=== PATIENT | female | born 1945 | race Caucasian/White ===

== ENCOUNTER 2018-08-23 06:30 | Day surgery (SDC) | payer OTHER ==
[2018-08-23] MEDS ORDERED: NA CHLORIDE 0.9% 1,000 ML ONE (06:55)
[2018-08-23 07:25] VITALS: TEMP 98.1
[2018-08-23] MEDS ORDERED: PROPOFOL 200 MG/20 ML VIAL IV ONE (07:34)
[2018-08-23] MEDS ORDERED: LIDOCAINE 1% MPF 2 ML AMPULE ONE (07:34)
[2018-08-23 08:42] VITALS: BP 118/58; O2SAT 95
== END 2018-08-23 08:47 | disposition home or self-care (01) ==
LOC: OR 06:30
PROVIDERS: ATTEND Internal Medicine Gastroenterology
PROC: 0DBN8ZX Excision of Sigmoid Colon, Via Natural or Artificial Opening Endoscopic, Diagnostic (ICD-10-PCS; 2018-08-23)
PROC: 0DBP8ZX Excision of Rectum, Via Natural or Artificial Opening Endoscopic, Diagnostic (ICD-10-PCS; 2018-08-23)
PROC: 0DBB8ZX Excision of Ileum, Via Natural or Artificial Opening Endoscopic, Diagnostic (ICD-10-PCS; 2018-08-23)
PROC: 0DB68ZX Excision of Stomach, Via Natural or Artificial Opening Endoscopic, Diagnostic (ICD-10-PCS; 2018-08-23)
PROC: 0DB88ZX Excision of Small Intestine, Via Natural or Artificial Opening Endoscopic, Diagnostic (ICD-10-PCS; 2018-08-23)
PROC: 0DB78ZX Excision of Stomach, Pylorus, Via Natural or Artificial Opening Endoscopic, Diagnostic (ICD-10-PCS; 2018-08-23)
PROC: 0DBM8ZX Excision of Descending Colon, Via Natural or Artificial Opening Endoscopic, Diagnostic (ICD-10-PCS; principal; 2018-08-23 07:30)
PROC: 0DBL8ZX Excision of Transverse Colon, Via Natural or Artificial Opening Endoscopic, Diagnostic (ICD-10-PCS; 2018-08-23 07:30)
DX: K52.9 Noninfective gastroenteritis and colitis, unspecified (principal); K57.30 Diverticulosis of large intestine without perforation or abscess without bleeding; K64.8 Other hemorrhoids; K62.89 Other specified diseases of anus and rectum; K29.80 Duodenitis without bleeding; K29.50 Unspecified chronic gastritis without bleeding; K20.9 Esophagitis, unspecified; Z80.0 Family history of malignant neoplasm of digestive organs; Z98.0 Intestinal bypass and anastomosis status; E11.9 Type 2 diabetes mellitus without complications; I48.91 Unspecified atrial fibrillation; I11.0 Hypertensive heart disease with heart failure; I50.9 Heart failure, unspecified; G47.30 Sleep apnea, unspecified; Z79.4 Long term (current) use of insulin; Z79.01 Long term (current) use of anticoagulants; Z79.899 Other long term (current) drug therapy; Z95.0 Presence of cardiac pacemaker
CPT/HCPCS: 45380; 43239; 88312; 82962; 88305; J2704; J2001; J7030

== ENCOUNTER 2020-12-11 07:04 | Day surgery (SDC) | payer OTHER ==
[2020-12-11] MEDS ORDERED: NA CHLORIDE 0.9% 1,000 ML ONE (07:34)
[2020-12-11] MEDS ORDERED: LIDOCAINE 1% MPF 5 ML VIAL ONE (08:59)
[2020-12-11] MEDS ORDERED: propofoL 200 MG/20 ML VIAL IV ONE (08:59)
[2020-12-11] MEDS ORDERED: Phenylephrine HCl 10 MG/ML 1 ML VIAL ONE (09:10)
[2020-12-11] MEDS ORDERED: NS 0.9% VIAL 0 ML ONE (09:10)
[2020-12-11 10:03] VITALS: O2SAT 96
[2020-12-11 10:07] VITALS: BP 122/41
[2020-12-11 10:39] VITALS: TEMP 97.3
== END 2020-12-11 10:35 | disposition home or self-care (01) ==
LOC: OR 07:04
PROVIDERS: ATTEND Internal Medicine Gastroenterology
PROC: 0DBB8ZX Excision of Ileum, Via Natural or Artificial Opening Endoscopic, Diagnostic (ICD-10-PCS; 2020-12-11)
PROC: 0DBE8ZX Excision of Large Intestine, Via Natural or Artificial Opening Endoscopic, Diagnostic (ICD-10-PCS; 2020-12-11)
PROC: 0DBP8ZX Excision of Rectum, Via Natural or Artificial Opening Endoscopic, Diagnostic (ICD-10-PCS; 2020-12-11)
PROC: 0DBN8ZX Excision of Sigmoid Colon, Via Natural or Artificial Opening Endoscopic, Diagnostic (ICD-10-PCS; principal; 2020-12-11 08:00)
DX: K57.30 Diverticulosis of large intestine without perforation or abscess without bleeding (principal); K50.90 Crohn's disease, unspecified, without complications; K92.1 Melena; K64.8 Other hemorrhoids; K64.4 Residual hemorrhoidal skin tags; K63.5 Polyp of colon; Z20.822 Contact with and (suspected) exposure to COVID-19; Z86.010 Personal history of colon polyps
CPT/HCPCS: 82947; 88305; 45385; 45380; U0003; J2704; J7030; J2370

== ENCOUNTER 2021-11-05 18:19 | Inpatient (IN) | payer OTHER ==
--- OUTSIDE RECORDS SUMMARY | 2021-11-05 18:22 | XMS REPORT | Continuity of Care Document ---
:1945 Author Organization [facility] Address [address] [place] [address] Dr. Vazquez [address] [place] [id number] Care Team Providers Name Role Phone Abdiaziz Fuchs Attending Clinician Unavailable Problems This patient has no known problems. Allergies, Adverse Reactions, Alerts This patient has no known allergies or adverse reactions. Medications This patient has no known medications. Procedures This patient has no known procedures. Encounters Start End Encounter Admission Attending Care Care Encounter Source Date/Time Date/Time Type Type Clinicians Facility Department ID 2021-09-04 Outpatient Fuchs [facility] [id number] Common 14:26:02 Abdiaziz [facility] 2021-06-25 Outpatient [facility] [id number] Common 10:03:03 [facility] 2021-06-18 Outpatient [facility] [id number] Common 08:37:02 [facility] 2021-06-13 [facility] [id number] Common 10:29:05 [facility] Results This patient has no known results.
[2021-11-05 20:27] LABS: Absolute Lymphocytes (CBC) 0.4 K/uL (0.7-4.9); Hematocrit 33.1 % (36.0-45.0); Lymphocytes % 7.9 % (15.3-44.8); MCV 107.9 fL (80-100); MPV 8.9 fL (7.6-11.3); RBC Red Blood Cell Count 3.07 M/uL (3.86-4.86)
[2021-11-05 20:28] LABS: Blood Morphology Comment NOTED (NOT SEEN); Macrocytosis 1+; Platelet Estimate DECR; White Blood Cell Scan OK (OK)
[2021-11-05 20:30] LABS: Protime INR 1.42
[2021-11-05] MEDS ORDERED: NA CHLORIDE 0.9% 1,000 ML ONE (20:32)
--- NOTE | 2021-11-05 20:43 | RAD REPORT ---
EXAM DESCRIPTION: RAD - Chest Single View - 11/05/2021 8:34 pm CLINICAL HISTORY: DYSPNEA COMPARISON: No comparisonsChest Pa And Lat (2 Views) dated 04/22/2018; Abdomen 1 View (KUB) dated 08/25; CHEST PA AND LAT 2 VIEW dated 01/06/2013; CHEST SINGLE VIEW dated 05/15/2012 FINDINGS: Lines: Pacemaker. Lungs: Diffuse prominence of the pulmonary interstitium. Pleural: No significant pleural effusions or pneumothorax. Cardiac: Cardiomegaly. Bones: No acute fractures. Other: IMPRESSION: Interstitial edema.
[2021-11-05 20:48] LABS: Albumin 3.7 g/dL (3.4-5.0); Bilirubin Direct 0.2 mg/dL (0-0.2); Bilirubin Total 0.5 mg/dL (0.2-1.0); Magnesium 1.6 mg/dL (1.8-2.4); Potassium 3.3 mmol/L (3.5-5.1); Protein, Total 8.1 g/dL (6.4-8.2)
[2021-11-05 20:59] LABS: Urine Blood Trace-intact (Negative); Urine Glucose Negative (Negative); Urine Protein Negative (Negative); Urine Specific Gravity 1.015 (1.005-1.030); Urine pH 5.5 (5.0-7.0)
--- NOTE | 2021-11-05 21:49 | ER ---
Nurse's Notes [facility] Name: Kiah Taylor Age: 76 yrs Sex: Female : 1945 Arrival Date: 11/05/2021 Time: 18:20 Bed 15 Private MD: Azul Fuchs C Diagnosis: Systolic (congestive) heart failure;Dyspnea;Obesity, unspecified;Chronic atrial fibrillation;Hypomagnesemia;Hypokalemia;UTI/ Urinary tract infection, site not specified;Anemia, unspecified Presentation: 11/05 18:53 Chief complaint: Patient states: she has been having shortness of breath and a cough ap3 for a couple of weeks now. when she called her PCP, she was told to come to the ED for further evaluation. Coronavirus screen: At this time, the client does not indicate any symptoms associated with coronavirus-19. Ebola Screen: No symptoms or risks identified at this time. Initial Sepsis Screen: Does the patient meet any 2 criteria? No. Patient's initial sepsis screen is negative. Does the patient have a suspected source of infection? No. Patient's initial sepsis screen is negative. Risk Assessment: Do you want to hurt yourself or someone else? Patient reports no desire to harm self or others. Onset of symptoms was October 08, 2021. 18:53 Method Of Arrival: Wheelchair ap3 18:53 Acuity: ANNIE 3 ap3 Triage Assessment: 18:56 General: Appears uncomfortable, Behavior is calm. Pain: Denies pain. Neuro: Level of ap3 Consciousness is awake, alert, obeys commands, Oriented to person, place, time. Cardiovascular: Patient's skin is warm and dry. Respiratory: Reports shortness of breath at rest on exertion cough that is dry, Airway is patent Respiratory effort is even, unlabored, Respiratory pattern is regular, symmetrical, Onset: The symptoms/episode began/occurred over the last few weeks, the patient has mild shortness of breath. Historical: - Allergies: 18:54 Morphine; ap3 18:54 Ciprofloxacin; ap3 - PMHx: 18:54 Diabetes mellitus; Hypertensive disorder; Crohn's disease; AFIB; ap3 - PSHx: 18:54 pacemaker; ap3 - Immunization history:: Client reports receiving the 2nd dose of the Covid vaccine. - Social history:: Smoking status: Patient denies any tobacco usage or history of. - Family history:: not pertinent. Screenin:57 Abuse screen: Denies threats or abuse. Nutritional screening: No deficits noted. ap3 Tuberculosis screening: No symptoms or risk factors identified. 19:46 Fall Risk Fall in past 12 months (25 points). aa9 Assessment: 19:43 General: Appears distressed, Behavior is cooperative. Pain: Denies pain. aa9 Cardiovascular: Rhythm is atrial pacer. Respiratory: Airway is patent Respiratory effort is labored, Respiratory pattern is regular, Breath sounds are diminished bilaterally. 23:36 Reassessment: Patient and family member notified of room change. Verbalize aa9 understanding. Transferred via hospital bed. Patient stable, breathing regular and unlabored. Vital Signs: 18:53 BP 146 / 51; Pulse 70; Resp 17; Temp 97.8; Pulse Ox 92% ; Weight 117.93 kg; Height 5 ap3 ft. 4 in. (162.56 cm); 19:45 BP 156 / 69; Pulse 76; Resp 17 S; Temp 98(O); Pulse Ox 92% on R/A; Weight 117.93 kg aa9 (R); Height 5 ft. 4 in. (162.56 cm) (R); Pain 0/10; 20:59 Pulse 71; Resp 13; Pulse Ox 95% on R/A; kd3 22:59 Pulse 72; Resp 16; Pulse Ox 94% on R/A; aa9 19:45 Body Mass Index 44.63 (117.93 kg, 162.56 cm) aa9 ED Course: 18:20 Patient arrived in ED. am2 18:21 Azul Fuchs MD is Private Physician. am2 18:54 Triage completed. ap3 18:57 Arm band placed on left wrist. ap3 19:45 Placed in gown. Bed in low position. Call light in reach. Side rails up X2. Adult w/ aa9 patient. 19:49 Jelani Mckenna MD is Attending Physician. chato 20:25 Bonnie Casey, LAURA is Primary Nurse. kd3 20:36 XRAY Chest (1 view) In Process Unspecified. EDMS 20:58 SARS-COV-2 RT PCR (Document "Date of Onset" if Symptomatic) Sent. kd3 21:47 Azul Fuchs MD is Hospitalizing Provider. chato 22:16 Urine Culture Sent. aa9 23:13 No provider procedures requiring assistance completed. Patient admitted, IV remains in aa9 place. Administered Medications: 20:58 Drug: NS 0.9% 1000 ml Route: IV; Rate: 125 ml/hr; Site: left forearm; kd3 23:04 Follow up: IV Status: Infusion continued kd3 22:39 Drug: Lasix (furosemide) 40 mg Route: IVP; Site: left antecubital; aa9 22:39 Follow up: Response: No adverse reaction aa9 22:39 Drug: Rocephin (cefTRIAXone) 1 grams Route: IV; Rate: per protocol; Site: left aa9 antecubital; 22:39 Follow up: IV Status: Completed infusion; IV Intake: 10ml aa9 22:58 Drug: Magnesium Sulfate 1 grams Route: IVPB; Infused Over: 1 hrs; Site: left forearm; aa9 23:03 Follow up: IV Status: Infusion continued kd3 Medication: 23:14 VIS not applicable for this client. aa9 Intake: 22:39 IV: 10ml; Total: 10ml. aa9 Outcome: 21:49 Decision to Hospitalize by Provider. [facility] 23:13 Admitted to Med/surg accompanied by tech, via stretcher, with chart, Report called to aa9 receiving nurse 23:13 Condition: stable 23:13 Discharge instructions given to patient, family, Instructed on follow up and referral plans. the need for admit, Demonstrated understanding of instructions, follow-up care. 23:38 Patient left the ED. aa9 Signatures: Dispatcher [employer] EDNJ Jelani Mckenna MD MD cha Moreno, Amanda am2 Joselin Luis RN RN ap3 Bonnie Casey RN RN kd3 Allyn Lincoln, LAURA RN aa9 Corrections: (The following items were deleted from the chart) 18:56 18:54 Allergies: No Known Allergies; ap3 ap3
--- NOTE | 2021-11-05 21:50 | EDPHYS ---
Physician Documentation [facility] Name: Kiah Taylor Age: 76 yrs Sex: Female : 1945 Arrival Date: 11/05/2021 Time: 18:20 Bed 15 Private MD: Azul Fuchs C ED Physician Jelani Mckenna HPI: 11/05 21:44 This 76 yrs old Female presents to ER via Wheelchair with complaints of chato Shortness Of Breath, Cough, General Weakness. 21:44 The patient has shortness of breath at rest, with light activity. Onset: The chato symptoms/episode began/occurred 3 day(s) ago. Duration: The symptoms are continuous, and are steadily getting worse. The patient's shortness of breath is aggravated by exertion, light activity, supine position. Associated signs and symptoms: Pertinent positives: non-productive cough. Severity of symptoms: At their worst the symptoms were mild moderate in the emergency department the symptoms are unchanged. The patient has experienced similar episodes in the past, multiple times. Historical: - Allergies: 18:54 Morphine; ap3 18:54 Ciprofloxacin; ap3 - PMHx: 18:54 Diabetes mellitus; Hypertensive disorder; Crohn's disease; AFIB; ap3 - PSHx: 18:54 pacemaker; ap3 - Immunization history:: Client reports receiving the 2nd dose of the Covid vaccine. - Social history:: Smoking status: Patient denies any tobacco usage or history of. - Family history:: not pertinent. ROS: 21:44 Constitutional: Negative for fever, chills, and weight loss, Eyes: Negative for injury, chato pain, redness, and discharge, ENT: Negative for injury, pain, and discharge, Neck: Negative for injury, pain, and swelling, Cardiovascular: Negative for chest pain, palpitations, and edema, Abdomen/GI: Negative for abdominal pain, nausea, vomiting, diarrhea, and constipation, Back: Negative for injury and pain, : Negative for injury, bleeding, discharge, and swelling, Skin: Negative for injury, rash, and discoloration, Neuro: Negative for headache, weakness, numbness, tingling, and seizure, Psych: Negative for depression, anxiety, suicide ideation, homicidal ideation, and hallucinations, Allergy/Immunology: Negative for hives, rash, and allergies, Endocrine: Negative for neck swelling, polydipsia, polyuria, polyphagia, and marked weight changes, Hematologic/Lymphatic: Negative for swollen nodes, abnormal bleeding, and unusual bruising. 21:44 Respiratory: Positive for cough, shortness of breath, on exertion. 21:44 MS/extremity: Positive for pain, swelling, tenderness, of the right leg and left leg. Exam: 21:44 Constitutional: This is a well developed, well nourished patient who is awake, alert, chato and in no acute distress. Head/Face: Normocephalic, atraumatic. Eyes: Pupils equal round and reactive to light, extra-ocular motions intact. Lids and lashes normal. Conjunctiva and sclera are non-icteric and not injected. Cornea within normal limits. Periorbital areas with no swelling, redness, or edema. ENT: Nares patent. No nasal discharge, no septal abnormalities noted. Tympanic membranes are normal and external auditory canals are clear. Oropharynx with no redness, swelling, or masses, exudates, or evidence of obstruction, uvula midline. Mucous membranes moist. Neck: Trachea midline, no thyromegaly or masses palpated, and no cervical lymphadenopathy. Supple, full range of motion without nuchal rigidity, or vertebral point tenderness. No Meningismus. Chest/axilla: Normal chest wall appearance and motion. Nontender with no deformity. No lesions are appreciated. Cardiovascular: Regular rate and rhythm with a normal S1 and S2. No gallops, murmurs, or rubs. Normal PMI, no JVD. No pulse deficits. Abdomen/GI: Soft, non-tender, with normal bowel sounds. No distension or tympany. No guarding or rebound. No evidence of tenderness throughout. Back: No spinal tenderness. No costovertebral tenderness. Full range of motion. Female : Normal external genitalia. Skin: Warm, dry with normal turgor. Normal color with no rashes, no lesions, and no evidence of cellulitis. Neuro: Awake and alert, GCS 15, oriented to person, place, time, and situation. Cranial nerves II-XII grossly intact. Motor strength 5/5 in all extremities. Sensory grossly intact. Cerebellar exam normal. Normal gait. Psych: Awake, alert, with orientation to person, place and time. Behavior, mood, and affect are within normal limits. 21:44 Respiratory: the patient does not display signs of respiratory distress, Respirations: no acute changes, Breath sounds: rales, that are mild, are located in both bases, decreased breath sounds, rhonchi, that are mild, stridor, is not appreciated, + upper airway congestion. 22:02 ECG was reviewed by the Attending Physician. [facility] Vital Signs: 18:53 BP 146 / 51; Pulse 70; Resp 17; Temp 97.8; Pulse Ox 92% ; Weight 117.93 kg; Height 5 ap3 ft. 4 in. (162.56 cm); 19:45 BP 156 / 69; Pulse 76; Resp 17 S; Temp 98(O); Pulse Ox 92% on R/A; Weight 117.93 kg aa9 (R); Height 5 ft. 4 in. (162.56 cm) (R); Pain 0/10; 20:59 Pulse 71; Resp 13; Pulse Ox 95% on R/A; kd3 22:59 Pulse 72; Resp 16; Pulse Ox 94% on R/A; aa9 19:45 Body Mass Index 44.63 (117.93 kg, 162.56 cm) aa9 MDM: 19:[address] [facility] 21:50 Differential diagnosis: Bronchitis CHF exacerbation, pneumonia, pulmonary edema, chato reactive airway disease. Antibiotic administration: ROCEPHIN. The patient's Wells Deep Vein Thrombosis Score was calculated as follows: Total Score: 0-2 Pts- Low Risk. The patient's pulmonary embolism risk score was calculated as follows: Total Score: 0-2 points. This patient was found to be at low risk for a pulmonary embolism by using the Well's assessment criteria. Immunization status: Pneumococcal vaccine: Influenza vaccine: Data reviewed: vital signs, nurses notes, lab test result(s), EKG, radiologic studies, plain films. Data interpreted: athletic monitor: rate is 71 beats/min, rhythm is regular, Pulse oximetry: on room air is 95 %. Test interpretation: by ED physician or midlevel provider: ECG, plain radiologic studies. Counseling: I had a detailed discussion with the patient and/or guardian regarding: the historical points, exam findings, and any diagnostic results supporting the discharge/admit diagnosis, lab results, radiology results, the need for further work-up and treatment in the hospital. 11/05 19:51 Order name: Basic Metabolic Panel; Complete Time: 21:36 [facility] 11/05 19:51 Order name: CBC with Diff; Complete Time: 21:36 [facility] 11/05 19:51 Order name: LFT's; Complete Time: 21:36 [facility] 11/05 19:51 Order name: Magnesium; Complete Time: 21:36 [facility] 11/05 19:51 Order name: NT PRO-BNP; Complete Time: 21:36 [facility] 11/05 19:51 Order name: PT-INR; Complete Time: 21:36 [facility] 11/05 19:51 Order name: Troponin HS; Complete Time: 21:36 [facility] 11/05 19:51 Order name: XRAY Chest (1 view); Complete Time: 21:36 [facility] 11/05 19:51 Order name: Blood Culture Adult (2) [facility] 11/05 19:51 Order name: Lactate; Complete Time: 21:36 [facility] 11/05 19:51 Order name: SARS-COV-2 RT PCR (Document "Date of Onset" if Symptomatic) [facility] 11/05 20:29 Order name: CBC Smear Scan; Complete Time: 21:36 [facility] 11/05 20:59 Order name: Urine Dipstick-Ancillary; Complete Time: 21:36 [facility] 11/05 21:50 Order name: Urine Culture [facility] 11/05 19:51 Order name: EKG; Complete Time: 19:52 [facility] 11/05 19:51 Order name: Cardiac monitoring; Complete Time: 20:58 [facility] 11/05 19:51 Order name: EKG - Nurse/Tech; Complete Time: 22:59 [facility] 11/05 19:51 Order name: IV Saline Lock; Complete Time: 20:59 [facility] 11/05 19:51 Order name: Labs collected and sent; Complete Time: 20:59 [facility] 11/05 19:51 Order name: O2 Per Protocol; Complete Time: 20:59 [facility] 11/05 19:51 Order name: O2 Sat Monitoring; Complete Time: 20:59 [facility] 11/05 19:51 Order name: Urine Dipstick-Ancillary (obtain specimen); Complete Time: 20:58 [facility] 11/05 21:58 Order name: CONS Physician Consult EDMS EC:02 Rate is 76 beats/min. Rhythm is regular. QRS [place] is Normal. [place] interval is normal. QRS chato interval is prolonged at 148 msec. No Q waves. T waves are Normal. No ST changes noted. Clinical impression: Abnormal EKG without significant change. Administered Medications: 20:58 Drug: NS 0.9% 1000 ml Route: IV; Rate: 125 ml/hr; Site: left forearm; kd3 23:04 Follow up: IV Status: Infusion continued kd3 22:39 Drug: Lasix (furosemide) 40 mg Route: IVP; Site: left antecubital; aa9 22:39 Follow up: Response: No adverse reaction aa9 22:39 Drug: Rocephin (cefTRIAXone) 1 grams Route: IV; Rate: per protocol; Site: left aa9 antecubital; 22:39 Follow up: IV Status: Completed infusion; IV Intake: 10ml aa9 22:58 Drug: Magnesium Sulfate 1 grams Route: IVPB; Infused Over: 1 hrs; Site: left forearm; aa9 23:03 Follow up: IV Status: Infusion continued kd3 Disposition Summary: 11/05/21 21:49 Hospitalization Ordered Hospitalization Status: Inpatient Admission chato Provider: Azul Fuchs cha Location: Telemetry/MedSurg (Inpatient) chato Condition: Fair chato Problem: new chato Symptoms: have improved chato Bed/Room Type: Standard chato Room Assignment: 402(11/05/21 22:49) eb1 Diagnosis - Systolic (congestive) heart failure chato - Dyspnea chato - Obesity, unspecified chato - Chronic atrial fibrillation chato - Hypomagnesemia chato - Hypokalemia chato - UTI/ Urinary tract infection, site not specified chato - Anemia, unspecified chato Forms: - Medication Reconciliation Form chato - SBAR form chato Signatures: Dispatcher [employer] EDJelani Hoffman MD MD cha Prokisch, Amanda, RN RN ap3 Elizabeth Martins RN RN eb1 Bonnie Casey RN RN kd3 Allyn Lincoln RN RN aa9 Corrections: (The following items were deleted from the chart) 18:56 18:54 Allergies: No Known Allergies; ap3 ap3 22:49 21:49 chato eb1
[2021-11-05] MEDS ORDERED: MAGNESIUM SULFATE 1 gm IVPB 1 GM/100 ML BAG IV ONE (22:28)
[2021-11-05] MEDS ORDERED: CEFTRIAXONE 1000 MG/VIAL ONE (22:28)
[2021-11-05] MEDS ORDERED: FUROSEMIDE 40 MG/4 ML VIAL ONE (22:28)
[2021-11-05] MEDS ORDERED: ONDANSETRON 4 MG/2 ML VIAL IV PRN (23:14)
[2021-11-05] MEDS ORDERED: IPRATROPIUM BROM 0.5MG/2.5ML NEB PRN (23:14)
[2021-11-05] MEDS ORDERED: ACETAMINOPHEN 325 MG TABLET PO PRN (23:14)
[2021-11-05] MEDS ORDERED: ALBUTEROL 2.5 MG/3 ML NEB SOL NEB PRN (23:14)
[2021-11-06 06:25] LABS: Potassium 3.3 mmol/L (3.5-5.1)
[2021-11-06 06:29] LABS: Absolute Lymphocytes (CBC) 0.3 K/uL (0.7-4.9); Hematocrit 32.5 % (36.0-45.0); MCV 105.3 fL (80-100); MPV 9.5 fL (7.6-11.3); RBC Red Blood Cell Count 3.08 M/uL (3.86-4.86)
[2021-11-06] MEDS ORDERED: D50W 25 GM/50 ML SYRINGE IV PRN (07:45)
[2021-11-06] MEDS ORDERED: GLUCAGON 1 MG/VIAL IM PRN (07:45)
[2021-11-06] MEDS ORDERED: DEXTROSE 10%-WATER 125 ML IV PRN (07:55)
[2021-11-06] MEDS: INSULIN -REGULAR HUMAN 50 UNIT/0.5 ML ML SQ SCH ×4 (08:00→21:00)
[2021-11-06] MEDS ORDERED: HOME MED 1 EA UNK (Olmesartan Medoxomil [Benicar] 40 MG Tablet) PO SCH (09:00)
[2021-11-06] MEDS ORDERED: FUROSEMIDE 20 MG/ 2ML VIAL IV SCH (09:00)
[2021-11-06] MEDS ORDERED: HOME MED 1 EA UNK (Potassium Chloride [Potassium Chloride] 10 MEQ Tab.Er.Prt) PO SCH (09:00)
[2021-11-06] MEDS ORDERED: HOME MED 1 EA UNK (Omeprazole [Prilosec] 40 MG Capsule.Dr) PO SCH (09:00)
[2021-11-06] MEDS ORDERED: HOME MED 1 EA UNK (Insulin Detemir [Levemir] 100 UNIT/1 ML Ml) SQ SCH (09:00)
[2021-11-06] MEDS ORDERED: METFORMIN HCL 1000 MG PO SCH (09:00)
[2021-11-06] MEDS ORDERED: FAMOTIDINE 20 MG/2 ML VIAL IV SCH (09:00)
[2021-11-06] MEDS: HOME MED 1 EA UNK (Liraglutide [Victoza 2-Pak] 0.6 MG/0.1 ML Pen.Injctr) SQ SCH (09:00)
[2021-11-06] MEDS ORDERED: POTASSIUM 25 MEQ EFFERV TAB PO ONE (09:00)
[2021-11-06] MEDS: AZATHIOPRINE 50 MG TABLET PO SCH (09:30)
[2021-11-06] MEDS: METFORMIN HCL 500 MG TAB PO SCH ×2 (09:31→16:50)
[2021-11-06] MEDS: CLONIDINE HCL 0.3 MG TAB PO SCH ×2 (09:31→22:27)
[2021-11-06] MEDS: lisinopriL 20 MG TAB PO SCH (09:32)
[2021-11-06] MEDS: GLIMEPIRIDE 2 MG TABLET PO SCH ×2 (09:32→16:50)
[2021-11-06] MEDS: allopurinoL 300 MG TAB PO SCH (09:33)
[2021-11-06] MEDS: DOXAZOSIN 4 MG TAB PO SCH ×3 (09:33→22:29)
[2021-11-06] MEDS: VALSARTAN 160 MG TAB PO SCH (09:34)
[2021-11-06] MEDS: RIVAROXABAN 20 MG TABLET PO SCH (09:34)
[2021-11-06] MEDS: PANTOPRAZOLE 40MG TABLET PO SCH (09:34)
[2021-11-06] MEDS: AMLODIPINE 5 MG TAB PO SCH ×2 (09:35→22:29)
[2021-11-06] MEDS: MAGNESIUM OXIDE 400 MG TAB PO SCH ×2 (09:35→22:31)
[2021-11-06] MEDS: FUROSEMIDE 40 MG/4 ML VIAL IV SCH ×2 (09:35→16:50)
[2021-11-06] MEDS: POTASSIUM 25 MEQ EFFERV TAB PO SCH ×2 (09:36→22:27)
[2021-11-06] MEDS: INSULIN GLARGINE 100 UNIT/ML SQ SCH ×2 (09:36→22:30)
[2021-11-06] MEDS: CEFTRIAXONE 1,000 MG in NA CHLORIDE 0.9% 50 ML IVPB SCH (09:37)
[2021-11-06] MEDS: GUAIFENESIN/CODEINE 5ML UCUP PO PRN ×2 (09:41→22:27)
--- NOTE | 2021-11-06 11:26 | CON ---
Date of Consultation: 11/06/2021 Reason For Consultation: Dyspnea on exertion, weakness, cough, and congestive heart failure. History Of Present Illness: Ms. Taylor is 76. Has a history of diabetes, Crohn disease, a pacemaker placement, hypertension, comes in with dyspnea on exertion and cough. Chest x-ray shows CHF. BNP wa s 556, hemoglobin 10.1, potassium 3.3, paced rhythm. She has already improved on her present regimen . She also has a history of paroxysmal atrial fibrillation. Allergies: SHE IS ALLERGIC TO CIPRO AND MORPHINE. Review of Systems: Negative. Social History: Negative. Family History: Negative. Medications: At home include clonidine, Pravachol, Benicar, insulin, lisinopril, metformin, Imuran, occasional Zaroxolyn, Lasix, Norvasc, and inhalers as well as Xarelto. Impression And Plan: 1.Congestive heart failure, probably acute on chronic diastolic. Echocardiogram is pending. Contin ue present regimen. 2.Hypokalemia, needs to be corrected. 3.Pacemaker rhythm, recent check in the office is okay. 4.Diabetes, well controlled. 5.Crohn disease, on Imuran. 6.Hypertension, well controlled. 7.Dyslipidemia. I think Ms. Taylor can go home whenever it is okay with Dr. Fuchs, but I will probabl y be given at least 1 more day and gentle diuresis. We will see her in the office soon. I think a [facility]an as an outpatient may be jennifer sonable. SOCORRO/ONI Voice ID: [id number] Report ID: [id number]
--- NOTE | 2021-11-06 15:10 | EKG ---
Test Date: 2021-11-05 Test Time: 21:24:18 Director Distribution: AUGIE MEASUREMENT RESULTS: Intervals: Rate: 76 WV: QRSD: 148 QT: 454 QTc: 510 [place]: P: W[place]: QRS: 244 T: 26 INTERPRETIVE STATEMENTS: V paced rhythm Abnormal ECG Electronically Signed On 11-06-21 15:10:18 CDT by Colt Vail
[2021-11-06] MEDS ORDERED: ALBUTEROL 2.5 MG/3 ML NEB SOL NEB PRN (17:00)
[2021-11-06] MEDS ORDERED: IPRATROPIUM BROM 0.5MG/2.5ML NEB PRN (17:00)
[2021-11-06] MEDS ORDERED: POTASSIUM CL SA 10 MEQ TAB PO ONE (18:00)
[2021-11-06] MEDS ORDERED: HOME MED 1 EA UNK (Pravastatin [Pravachol*] 40 MG/TAB Tab) PO SCH (21:00)
[2021-11-06] MEDS: ATORVASTATIN 10 MG TAB PO SCH (22:29)
[2021-11-07] MEDS: INSULIN -REGULAR HUMAN 50 UNIT/0.5 ML ML SQ SCH ×4 (07:30→21:00)
[2021-11-07] MEDS: RIVAROXABAN 20 MG TABLET PO SCH (08:25)
[2021-11-07] MEDS: allopurinoL 300 MG TAB PO SCH (08:25)
[2021-11-07] MEDS: AZATHIOPRINE 50 MG TABLET PO SCH (08:25)
[2021-11-07] MEDS: lisinopriL 20 MG TAB PO SCH (08:26)
[2021-11-07] MEDS: GLIMEPIRIDE 2 MG TABLET PO SCH ×2 (08:26→16:26)
[2021-11-07] MEDS: AMLODIPINE 5 MG TAB PO SCH ×2 (08:26→22:24)
[2021-11-07] MEDS: METFORMIN HCL 500 MG TAB PO SCH ×2 (08:27→16:26)
[2021-11-07] MEDS: CLONIDINE HCL 0.3 MG TAB PO SCH ×2 (08:27→22:23)
[2021-11-07] MEDS: MAGNESIUM OXIDE 400 MG TAB PO SCH ×2 (08:28→22:23)
[2021-11-07] MEDS: VALSARTAN 160 MG TAB PO SCH (08:28)
[2021-11-07] MEDS: POTASSIUM 25 MEQ EFFERV TAB PO SCH ×2 (08:29→22:22)
[2021-11-07] MEDS: HOME MED 1 EA UNK (Liraglutide [Victoza 2-Pak] 0.6 MG/0.1 ML Pen.Injctr) SQ SCH (08:29)
[2021-11-07] MEDS: PANTOPRAZOLE 40MG TABLET PO SCH (08:30)
[2021-11-07] MEDS: FUROSEMIDE 40 MG/4 ML VIAL IV SCH ×2 (08:30→16:25)
[2021-11-07] MEDS: INSULIN GLARGINE 100 UNIT/ML SQ SCH ×2 (08:30→22:24)
[2021-11-07] MEDS: CEFTRIAXONE 1,000 MG in NA CHLORIDE 0.9% 50 ML IVPB SCH (08:30)
[2021-11-07] MEDS: GUAIFENESIN/CODEINE 5ML UCUP PO PRN ×2 (08:41→22:22)
--- NOTE | 2021-11-07 10:39 | ECHO ---
HEIGHT: 5 ft 4 in WEIGHT: 260 lb 0 oz DATE OF STUDY: 11/06/[address]: Abdizaiz Fuchs MD 2-DIMENSIONAL: YES M.MODE: YES DOPPLER: YES COLOR FLOW: YES TDS: NO PORTABLE: YES DEFINITY: NO BUBBLE STUDY: NO DIAGNOSIS: CONGESTIVE HEART FAILURE CARDIAC HISTORY: CATHERIZATION: NO SURGERY: NO PROSTHETIC VALVE: NO PACEMAKER: YES MEASUREMENTS (cm) DIASTOLIC (NORMALS) SYSTOLIC (NORMALS) IVSd 1.3 (0.6-1.2) LA Diam 3.4 (1.9-4.0) LVEF 71% LVIDd 4.7 (3.5-5.7) LVIDs 2.8 (2.0-3.5) %FS 41% LVPWd 1.3 (0.6-1.2) Ao Diam 2.8 (2.0-3.7) 2 DIMENSIONAL ASSESSMENT: RIGHT ATRIUM: NORMAL LEFT ATRIUM: NORMAL RIGHT VENTRICLE: NORMAL LEFT VENTRICLE: NORMAL TRICUSPID VALVE: MITRAL VALVE: PULMONIC VALVE: AORTIC VALVE: PERICARDIAL EFFUSION: NONE AORTIC ROOT: NORMAL LEFT VENTRICULAR WALL MOTION: BOUNCY SEPTAL MOTION. DOPPLER/COLOR FLOW: SEE BELOW. COMMENTS: NORMAL LEFT VENTRICULAR EJECTION FRACTION >60% WITH NORMAL WALL MOTION. BOUNCY SEPTAL MOVEMENT THAT CAN REPRESENT CONSTRICTIVE PERICARDITIS. NORMAL DIASTOLIC FUNCTION. SEVERE PULMONARY HYPERTENSION WITH RIGHT VENTRICULAR SYSTOLIC PRESSURE >60 mmHg. MILD AORTIC, MITRAL, TRICUSPID AND PULMONARY REGURGITATION. TECHNOLOGIST: Maximiliano CHANEY
[2021-11-07 11:16] LABS: Magnesium 1.9 mg/dL (1.8-2.4); Potassium 3.9 mmol/L (3.5-5.1)
--- NOTE | 2021-11-07 12:28 | PN ---
Date of Progress Note: 11/07/2021 Subjective: The patient was seen this morning for followup. She was lying in bed, not in distress. Slept little better last night. Cough is better. She remains on oxygen 2 L/minute nasal cannula. Oxygen saturation is around 93%. Objective: Vital Signs: Reviewed. HEENT: Examination unremarkable. Lungs: Clear to auscultation except diminished air entry in the lung bases overall. This is better today than yesterday. No rhonchi. No rales. Heart: Sounds normal. Abdomen: Soft. Bowel sounds normal. No guarding, rigidity, tenderness, or distention. Extremities: Very trace leg edema. Much better than yesterday. Laboratory Data: Pending. Impression: 1.Congestive heart failure, chronic, diastolic, with acute exacerbation. 2.Hypertension. 3.Diabetes mellitus. 4.Hyperlipidemia. Plan: We will go ahead and continue current medication. Continue current Lasix. We will follow up on blood work results. When I saw her, I reduced her oxygen from 2 L to 1 L/minute and nurse was adv ised to check oxygen saturation after 1 hour and as long as her oxygen saturation is more than 90%, t hen to turn off oxygen and recheck oxygen saturation after 1 hour of discontinuation of oxygen therap y, and we will see whether her oxygenation is adequate without use of oxygen or not. Echocardiogram was done yesterday, result pending. Depending on how she does today in her blood work result, we shiva l decide whether we can discharge her today and if not today, maybe tomorrow. The patient informed ellen regalado today that she has been taking furosemide 80 mg only once a day instead of 2 times a day as prescri bed, and I did instruct today that she should use her furosemide 2 times a day as prescribed. She takes metolazone 2 times a week which obviously she will continue to use it. JESSICA/MODL Voice ID: [id number] Report ID: [id number]
--- NOTE | 2021-11-07 20:41 | PN ---
Date of Progress Note: 11/07/2021 Subjective: Seen by bedside. She is doing clinically well. Review of Systems: Has shortness of breath on exertion. No orthopnea. No nausea, vomiting, diarrhea. No dysuria, poly uria, or urinary urgency. All other systems reviewed are negative. Physical Examination: Vital Signs: Reviewed. Head and Neck: Pupils are equal, reactive to light. Intact eye movements. No JVD. No cervical lym phadenopathy. Neck: Supple. Thyroid is not enlarged. Lungs: Clear to auscultation bilaterally. No rhonchi, rales, or crackles. No accessory muscle use. Heart: Regular rate and rhythm. No extra sounds. Abdomen: Soft, nontender, nontender. Bowel sounds positive. No organomegaly. No masses or hernia. No rigidity or rebound. Extremities: No clubbing, cyanosis. Intact pulses. Skin: No rashes. Neurologic: Alert, awake, oriented x3. No focal deficits appreciated. Investigations: Creatinine is 0.97, hemoglobin is 10.9. On echo, she has a normal systolic and shepherd tolic function. However, there is significant pulmonary hypertension and there is a septal bouncing movement suggestive for possible constrictive pericarditis. Assessment And Recommendation: 1.Congestive heart failure exacerbation. On echo, she has normal systolic and diastolic function, h owever, severe pulmonary hypertension with bouncing interventricular septum suggestive of possibility of constrictive pericarditis. I recommend left and right heart catheterization to evaluate the hemo dynamics to confirm whether constrictive pericarditis is the etiology behind her symptoms or not. Th is can be arranged for as an outpatient, and from Cardiology standpoint, the patient can be released and I will arrange for left and right heart catheterization with simultaneous pressure measurements a s an outpatient. 2.Pulmonary hypertension, severe. She needs right heart catheterization to evaluate the etiology of the pulmonary hypertension as she does not appear to have diastolic dysfunction on echo. SR/MODL Voice ID: [id number] Report ID: [id number]
[2021-11-07] MEDS: DOXAZOSIN 4 MG TAB PO SCH ×2 (22:22→22:23)
[2021-11-07] MEDS: ATORVASTATIN 10 MG TAB PO SCH (22:23)
[2021-11-08 01:24] VITALS: O2SAT 95
[2021-11-08] MEDS: INSULIN -REGULAR HUMAN 50 UNIT/0.5 ML ML SQ SCH ×3 (07:30→16:35)
[2021-11-08] MEDS: GLIMEPIRIDE 2 MG TABLET PO SCH ×2 (08:00→16:35)
[2021-11-08] MEDS: METFORMIN HCL 500 MG TAB PO SCH ×2 (08:00→16:35)
[2021-11-08] MEDS: INSULIN GLARGINE 100 UNIT/ML SQ SCH (08:20)
[2021-11-08] MEDS: HOME MED 1 EA UNK (Liraglutide [Victoza 2-Pak] 0.6 MG/0.1 ML Pen.Injctr) SQ SCH (09:00)
[2021-11-08] MEDS: CLONIDINE HCL 0.3 MG TAB PO SCH (09:06)
[2021-11-08] MEDS: CEFTRIAXONE 1,000 MG in NA CHLORIDE 0.9% 50 ML IVPB SCH (09:07)
[2021-11-08] MEDS: RIVAROXABAN 20 MG TABLET PO SCH (09:07)
[2021-11-08] MEDS: AMLODIPINE 5 MG TAB PO SCH (09:07)
[2021-11-08] MEDS: DOXAZOSIN 4 MG TAB PO SCH (09:08)
[2021-11-08] MEDS: lisinopriL 20 MG TAB PO SCH (09:08)
[2021-11-08] MEDS: allopurinoL 300 MG TAB PO SCH (09:08)
[2021-11-08] MEDS: VALSARTAN 160 MG TAB PO SCH (09:08)
[2021-11-08] MEDS: PANTOPRAZOLE 40MG TABLET PO SCH (09:09)
[2021-11-08] MEDS: MAGNESIUM OXIDE 400 MG TAB PO SCH (09:09)
[2021-11-08] MEDS: POTASSIUM 25 MEQ EFFERV TAB PO SCH (09:09)
[2021-11-08] MEDS: FUROSEMIDE 40 MG/4 ML VIAL IV SCH ×2 (09:09→16:36)
[2021-11-08] MEDS: AZATHIOPRINE 50 MG TABLET PO SCH (09:50)
--- NOTE | 2021-11-08 11:16 | P.CNS ---
Date of Consult: 11/08/21 Reason for Consult: Pulmonary hypertension and shortness of breath Chief Complaint: Shortness of breath History of Present Illness: Patient is 76 years of age with a history of sleep apnea was consulted for pulmonary hypertension just got her new CPAP that was ordered in June has been complaining of worsening dyspnea and cough for the past few weeks chronic shortness of breath has become progressively worse apparently had a CT scan of the chest done in May neck smoker quit 30 years ago has lower extremity chronic lymphedema in addition to atrial fibrillation patient is on Xarelto Allergies ciprofloxacin [From Cipro] Allergy (Mild, Verified 11/06/21 00:18) Rash morphine Adverse Reaction (Verified 11/06/21 00:19) Anaphylaxis Home Medications: Amlodipine Besylate [Norvasc] 5 mg PO BID 01/10/12 Clonidine HCl 0.3 mg PO BID 01/10/12 Glimepiride [Amaryl] 4 mg PO BID 01/10/12 Insulin Detemir [Levemir] 50 units SQ BID 01/10/12 Lisinopril 40 mg PO DAILY 01/10/12 Metformin HCl 1,000 mg PO BID 01/10/12 Pravastatin [Pravachol*] 10 mg PO BEDTIME 01/10/12 Omeprazole [Prilosec] 20 mg PO DAILY 01/06/13 Allopurinol 150 mg PO DAILY 12/09/20 Furosemide 80 mg PO BID 12/09/20 Insulin Lispro [Humalog*] See Protocol SQ TIDWM 12/09/20 Liraglutide [Victoza 2-Raciel] 1.8 mg SQ DAILY 12/09/20 Metolazone [Zaroxolyn] 10 mg PO SEECOM 12/09/20 Olmesartan Medoxomil [Benicar] 40 mg PO DAILY 12/09/20 Potassium Chloride 10 meq PO DAILY 12/09/20 Rivaroxaban [Xarelto] 20 mg PO DAILY 12/09/20 azaTHIOprine [Azathioprine] 50 mg PO DAILY 12/09/20 Doxazosin [Cardura*] 4 mg PO BID 11/06/21 Fluticasone/Salmeterol [Advair 250-50 Diskus] 1 each IH BID #60 11/08/21 - Past Medical/Surgical History Diabetic: Yes -: IDDM2 -: CHROHN -: HTN -: AFIB -: LYMPHEDEMA -: HLD -: cardioversion X6 -: Cardiac ablasions X2 -: hysterectomy -: choly -: colon removed (5in. of sm and lg. intestine) - Social History Smoking Status: Former smoker Alcohol use: No CD- Drugs: No Caffeine use: No Place of Residence: Home Review of Systems 10-point ROS is otherwise unremarkable General: Weakness Respiratory: Cough, Shortness of Breath Cardiovascular: Edema Physical Examination Temp Pulse Resp BP Pulse Ox 96.8 F 72 18 154/68 H 93 11/08/21 08:00 11/08/21 09:09 11/08/21 08:00 11/08/21 09:09 11/08/21 08:00 General: Alert, In no apparent distress HEENT: Atraumatic Neck: Supple Respiratory: Clear to auscultation bilaterally, Diminished Cardiovascular: Edema Gastrointestinal: Normal bowel sounds, Soft and benign - Problems (1) Pulmonary hypertension Current Visit: Yes Status: Acute Plan: Patient is 76 years of age admitted with acute on chronic dyspnea she has lower extremity lymphedema has A. fib is anticoagulated echocardiogram shows severe pulmonary hypertension no evidence of right ventricular dilatation patient has cardiomegaly a pacemaker BNP is only mildly elevated patient is mildly anemic Hypoxemia I suspect she has underlying chronic diastolic heart failure patient has E. coli gram-negative rods in the urine pansensitive patient is on Lasix and metolazone at home she may have underlying obesity induced obstructive airways disease recommended trial of bronchodilators she will need follow-up as an outpatient with pulmonary function testing ABGs have been ordered I have ordered her Advair to be taken at home 1 puff twice a day patient just got a new CPAP that was ordered in June may also be contributing to her pulmonary hypertension due to obesity hypoventilation syndrome patient's bicarbonate is elevated
[2021-11-08 11:38] VITALS: BP 119/53
[2021-11-08 14:21] LABS: Blood Gas Oxyhemoglobin 82.7 % (94-97); Blood O2 Saturation 85.4 % (92-98.5)
--- NOTE | 2021-11-08 15:59 | RAD REPORT ---
EXAM DESCRIPTION: CT - Chest For Pe Angio - 11/08/2021 3:36 pm CLINICAL HISTORY: Severe pulmonary hypertension COMPARISON: CTANGIO CHEST dated 10/12/2010 TECHNIQUE: Dynamically enhanced axial 3 mm thick images of the chest were obtained during administra tion of <100> mL Isovue 370 IV contrast. Coronal and oblique reconstruction images were generated and reviewed. Exam utilizes a protocol for optimal evaluation of pulmonary arterial tree. Maximum intensity projections 3D imaging was utilized All CT scans are performed using dose optimization technique as appropriate and may include automated exposure control or mA/KV adjustment according to patient size. FINDINGS: Chest Wall: No suspicious thyroid nodules or pathologic lymphadenopathy. Left upper chest wall pacemaker. Lungs: No acute abnormality. Pleura: Trace pleural fluid. There is likely some mild atelectasis and other nonspecific ground-glass opacities in areas of thickening. Mediastinum/christopher: No pathologic lymphadenopathy. Pulmonary arteries/Aorta: No filling defect identified. No aortic aneurysm. Enlargement of the pulmon shruthi arteries which can be seen with pulmonary artery hypertension. . Heart: No significant pericardial effusion. Cardiomegaly. Multi-vessel coronary artery disease. Upper abdomen: No acute abnormality. Bones: No acute abnormality. Bridging osteophytes in the spine. IMPRESSION: Negative for pulmonary embolism. No other definite acute findings identified.
--- NOTE | 2021-11-08 16:18 | PN ---
Date of Progress Note: 11/08/2021 Subjective: Seen by bedside. Continues to have shortness of breath on exertion with orthopnea. Gen eralized weakness. Review of Systems: No nausea, vomiting, diarrhea. No dysuria, polyuria, or urinary urgency. No chest pain. All other systems reviewed are negative. Physical Examination: Vital Signs: Reviewed. Head and Neck: Pupils are equal, reactive to light. Intact eye movements. No JVD. No cervical lym phadenopathy. Neck: Supple. Thyroid is not enlarged. Lungs: Clear to auscultation bilaterally. No rhonchi, rales, or crackles. No accessory muscle use. Heart: Regular. No extra sounds. Abdomen: Soft, nontender. Bowel sounds positive. No organomegaly. No masses or hernia. No rigidi ty or rebound. Extremities: Edema bilaterally. No clubbing, cyanosis. Intact pulses. Skin: No rash. Neurologic: Alert, awake, oriented x3. No acute focal deficits appreciated. Lymph Nodes: No cervical or axillary lymphadenopathy. Investigations: Creatinine 0.97. Assessment And Recommendation: 1.Acute on chronic heart failure exacerbation. On echo, this patient's diastolic function is normal and also has features on the echocardiogram to suggest constrictive pericarditis. As outlined befor e, we will plan for left and right heart catheterization and hemodynamics monitoring to confirm the d iagnosis and further plan accordingly. 2.Pulmonary hypertension. The right ventricle systolic pressure is elevated, likely due to the heart failure status and workup for that as described above. SR/MODL Voice ID: [id number] Report ID: [id number]
[2021-11-08 16:38] VITALS: TEMP 96
--- NOTE | 2021-11-10 09:56 | DS ---
Date of Discharge: 11/08/2021 Disposition: Discharged to go home. Physical Examination: HEENT: Unremarkable. Lungs: Clear to auscultation. Heart: Sounds normal. Abdomen: Soft. Bowel sounds normal. No guarding, rigidity, tenderness, distention. Extremity: Very trace edema. Discharge Medications And Instructions: 1.Continue all prior home medication. 2.Take furosemide 80 mg tablet, take 1 tablet 2 times a day as prescribed and the patient was taking this only once a day. 3.Start Advair 250/50 one puff 2 times a day, rinse mouth with water after use. 4.Use oxygen 2 L/minute per nasal cannula all the time. 5.Follow up with Dr. Vail next week as per his recommendation and he is planning to do right and l eft heart catheterization on an elective outpatient basis sometime this coming week. 6.Follow up with Dr. Bran in 2 weeks. 7.Follow up at my office a week after. 8.Ampicillin 500 mg 3 times a day for 1 week for urinary tract infection. Laboratory Data: Urine culture grew E coli. Echocardiogram done during this hospitalization showed ejection fraction 71% and bouncy septal movement that could represent constrictive pericarditis, see re pulmonary hypertension. Last chemistry; sodium 138, potassium 3.9, chloride 97, bicarb 40, BUN 24 , creatinine 0.97, glucose 232, magnesium 1.9. This was done yesterday. Upon admission; sodium 139, potassium 3.3, chloride 97, bicarb 36, BUN 37, creatinine 0.96, glucose 112. Liver function tests u nremarkable. ProBNP 528 on admission, next day it was 556. Troponin normal at . Upon adm ission; white count 4.6, hemoglobin 11.3, platelets 144. Hospital Course: This is a 76-year-old pleasant female patient, came into emergency room with increa sing problem of shortness of breath with activity and leg swelling problem. Please see dictated H an barrett P for more information. After the patient was evaluated in the ER, she was admitted to the [facility]. The patient was admitted to the hospital with diastolic heart failure and she was given IV Lasix. At home, she was prescribed to take Lasix 80 mg 2 times a day, but she was only taking once a day. She takes metolazone 2 times a week. With IV diuretic therapy, her condition improved. Cardiology consultation was obtained from Dr. Vail. Echocardiogram was done and Dr. Vail called and informe d me that he was concerned about possibility of constrictive pericarditis and he has recommended righ t and left heart catheterization to be done, which could be done on an elective outpatient basis as christian regalado recommended. From his point of view, the patient can go home whenever medically she is stable and he will schedule this heart catheterization to be done for next week. Medically, the patient was sta ble for discharge. Home oxygen was arranged as her room air oxygen saturation was low and she did qu alify for home oxygen and she was discharged to go home with home oxygen and above-mentioned medicati ons and instructions. Final Diagnoses: 1.Chronic diastolic heart failure, with acute exacerbation. 2.Hypokalemia. 3.Chronic atrial fibrillation. 4.Chronic anticoagulation therapy. 5.Hypothyroidism. 6.Type 2 diabetes mellitus. 7.Hypertension. 8.Hyperlipidemia. 9.Crohn disease. 10.Diverticulosis. 11.Pancytopenia. 12.Osteoarthritis. 13.Insomnia. 14.Hypomagnesemia. JESSICA/MODL Voice ID: [id number] Report ID: [id number]
--- NOTE | 2021-11-10 12:49 | HP ---
Date of Admission: 11/05/2021 Chief Complaint: Shortness of breath. History Of Present Illness: This is 76-year-old pleasant female patient, who came into emergency [facility] with increasing complaints of shortness of breath with day-to-day activity and leg swelling problem . She denies any chest pain problem. After she presented to emergency room, she was evaluated and a dmitted to the hospital with congestive heart failure problem. Allergies: TO MORPHINE, DETAILS UNKNOWN; CIPRO CAUSING JOINT PAIN. Medications: She takes Humira as prescribed by her senior strategy analyst. She also takes allopurinol 300 m g tablet she takes half a tablet daily, amlodipine 5 mg 2 times a day, azathioprine 50 mg daily, magn esium tablet 1 tablet 3 times a day, clonidine 0.3 mg 3 times a day, doxazosin 4 mg 2 times a day, fu rosemide 80 mg 2 times a day, glimepiride 4 mg in morning with breakfast, Levemir insulin 50 units lock bcutaneous injection 2 times a day, Humalog insulin 10 units 3 times a day with meal, Victoza 1.8 mg subcutaneous injection daily, lisinopril 40 mg daily, metformin 1000 mg 2 times a day, metolazone 10 mg tablets as prescribed by her catalogue illustrator, olmesartan 40 mg daily, omeprazole 40 mg daily, potassi um chloride 10 mEq daily, pravastatin 20 mg daily in evening, Xarelto 20 mg daily, and vitamin B12 10 00 mcg intramuscular injection . Review of Systems: Cardiovascular: As mentioned above. Respiratory: As mentioned above. All other systems reviewed and negative. Past Medical History: Significant for hypothyroidism, type 2 diabetes mellitus, hypertension, hyperl ipidemia, chronic atrial fibrillation, Crohn disease, diverticulosis, osteoarthritis at multiple site s, pancytopenia, insomnia, hypomagnesemia. Past medical history is significant for hypokalemia and l ymphedema of legs. Past Surgical History: Cataract surgery, pacemaker placement, ablation, cholecystectomy, partial res ection of colon, hysterectomy, basal cell carcinoma and squamous cell carcinoma . Family History: Father , had aortic aneurysm and coronary artery disease. Mother had colon canc er and hypertension. Sister with breast cancer. Social History: Prior history of smoking, not at present time. Use of alcohol rarely. Physical Examination: Vital Signs: Temperature 97.2, pulse 73, respiratory rate 12, blood pressure 164/67, oxygen saturati on 95% on 2 L nasal cannula oxygen. Height 5 feet 4 inches, weight 260 pounds. General: Awake, alert, oriented, not in distress. HEENT: Head atraumatic, normocephalic. Conjunctivae nonerythematous. Sclerae white. Mouth, no thr ush or edema noted. Ears/Nose, no mass, lesion, discharge noted. Neck: Supple. No JVD, lymph nodes, bruit, thyromegaly noted. Lungs: Bilateral good equal air entry. Not using any accessory muscles of respiration. Presence of rales noted in lower lung lema with diminished air entry in lower lung lema. Heart: Normal heart sounds, no murmur or gallop. Abdomen: Soft, bowel sounds normal. No guarding, rigidity, tenderness, mass, hepatosplenomegaly, dis tention, or bruit noted. Extremities: Bilateral leg edema present. Skin: No rash, ulcer, cellulitis. Lymphatics: No lymph node enlargement in neck, supraclavicular, infraclavicular region. Neuro: No focal neurological deficit. Chest: Unremarkable. External Genitalia: Deferred. Rectal: Deferred. Laboratory Data: Yesterday; white count 4.6, hemoglobin 11.3, platelets 144. Today; white count 5.6 , hemoglobin 10.9, platelets 139. Yesterday; sodium 139, potassium 3.3, chloride 97, bicarb 36, BUN 37, creatinine 0.96, glucose 112. Today; sodium 138, potassium 3.3, chloride 96, bicarb 36, BUN 31, creatinine 0.80, glucose 147. Her proBNP yesterday was 528, today 556. COVID-19 test negative. Uri nalysis showed 2+ leukocyte esterase, trace blood. Chest x-ray shows changes of congestive heart yaneth lure. Impression: 1.Congestive heart failure, chronic, diastolic, with acute exacerbation. 2.Chronic atrial fibrillation. 3.Hypertension. 4.Hyperlipidemia. 5.Type 2 diabetes mellitus. 6.Hypothyroidism. 7.Crohn disease. 8.Diverticulosis. 9.Osteoarthritis, multiple sites. 10.Insomnia. 11.Pancytopenia. 12.Hypomagnesemia. 13.Hypokalemia. 14.Lymphedema, legs. Plan: Admit the patient to hospital for further evaluation and management of this problem. The michael ent is appropriate for inpatient and is expected to spend 2 midnights in hospital. We will go ahead and continue home medications per order. We will continue current medications for hypertension and d iabetes will be managed with insulin per order. We will also monitor her fingerstick blood sugar wit h sliding scale insulin per order. Cardiology consultation was requested from Dr. Weeks and echoca rdiogram will be done. We will give Lasix 40 mg IV every 12 hours and details were discussed with Dr Alex Weeks from Cardiology Service and I will see her tomorrow for followup. Plan of treatment discus sed with the patient. JESSICA/MODL Voice ID: [id number]
== END 2021-11-08 19:00 | disposition home or self-care (01) | DRG 315 ==
LOC: ER 18:19 → ERHOLD 22:00 → 4TH 23:01
PROVIDERS: ADMIT Internal Medicine; ATTEND Internal Medicine
DX: I27.20 Pulmonary hypertension, unspecified (principal); Z68.41 Body mass index [BMI] 40.0-44.9, adult; K50.90 Crohn's disease, unspecified, without complications; I50.32 Chronic diastolic (congestive) heart failure; I11.0 Hypertensive heart disease with heart failure; E11.9 Type 2 diabetes mellitus without complications; E66.9 Obesity, unspecified; E83.42 Hypomagnesemia; E66.2 Morbid (severe) obesity with alveolar hypoventilation; E87.6 Hypokalemia; I48.0 Paroxysmal atrial fibrillation; E78.5 Hyperlipidemia, unspecified; G47.30 Sleep apnea, unspecified; D64.9 Anemia, unspecified; B96.20 Unspecified Escherichia coli [E. coli] as the cause of diseases classified elsewhere; Z79.4 Long term (current) use of insulin; Z95.0 Presence of cardiac pacemaker; Z88.1 Allergy status to other antibiotic agents; Z88.5 Allergy status to narcotic agent; Z79.84 Long term (current) use of oral hypoglycemic drugs; Z79.899 Other long term (current) drug therapy; Z79.01 Long term (current) use of anticoagulants; Z99.89 Dependence on other enabling machines and devices; Z87.891 Personal history of nicotine dependence; Z90.49 Acquired absence of other specified parts of digestive tract; Z20.822 Contact with and (suspected) exposure to COVID-19
CPT/HCPCS: 36415; 71045; 71275; 80048; 80076; 81003; 82805; 82947; 83605; 83735; 83880; 84132; 84484; 85025; 85610; 87040; 87077; 87086; 87088; 87186; 93005; 93306; 99285; J1815; J1940; J3475; J7030; J7500; Q9967; U0003

== ENCOUNTER 2021-11-21 06:30 | Day surgery (SDC) | payer OTHER ==
[2021-11-19 11:42] LABS: Protime INR 1.65
[2021-11-19 11:45] LABS: Potassium 3.4 mmol/L (3.5-5.1)
[2021-11-19 12:04] LABS: Absolute Lymphocytes (CBC) 0.3 K/uL (0.7-4.9); Hematocrit 33.5 % (36.0-45.0); MCV 104.3 fL (80-100); MPV 9.4 fL (7.6-11.3); RBC Red Blood Cell Count 3.21 M/uL (3.86-4.86)
[2021-11-19 12:08] LABS: SARS-CoV-2 Antigen Rapid Res Negative (Negative)
--- NOTE | 2021-11-19 12:46 | EKG ---
Test Date: 2021-11-19 Test Time: 10:53:20 News Reel Cameraman: DEMETRIO MEASUREMENT RESULTS: Intervals: Rate: 70 NC: QRSD: 148 QT: 432 QTc: 466 [place]: P: NC: QRS: 186 T: 6 INTERPRETIVE STATEMENTS: Electronic ventricular pacemaker Compared to ECG 11/05/2021 21:24:18 No significant changes Electronically Signed On 11-19-21 12:45:41 CDT by Colt Vail
[~2021-11-21 06:30] MED LIST: FENTANYL CITR 100 MCG/2 ML ONE; HEPA 1000U/500MLS 2,000 UNIT/1,000 ML BAG IV ONE
[2021-11-21] MEDS ORDERED: CLOPIDOGREL 75 MG TABLET ONE (06:31)
[2021-11-21] MEDS ORDERED: VERAPAMIL HCL 10 MG/4 ML VIAL IV ONE (06:31)
[2021-11-21] MEDS ORDERED: MIDAZOLAM HCL 2 MG/2 ML INJ ONE (06:31)
[2021-11-21] MEDS ORDERED: ASPIRIN 325 MG TAB ONE (06:31)
[2021-11-21] MEDS ORDERED: HEPARIN 5000 UNIT/ML 1 ML VIAL ONE (06:31)
[2021-11-21] MEDS ORDERED: HEPARIN 10,000 UNIT/10 ML VIAL IV ONE (06:32)
[2021-11-21] MEDS ORDERED: TICAGRELOR 90 MG TABLET PO ONE (06:32)
[2021-11-21] MEDS ORDERED: ATROPINE SULF 1 MG/10 ML SYR IV ONE (06:34)
[2021-11-21] MEDS ORDERED: NITROGLYCERIN 100 MCG/ML SYR (for cath lab use only) IV ONE (06:34)
[2021-11-21] MEDS ORDERED: NA CHLORIDE 0.9% 100 ML IV ONE (06:38)
[2021-11-21] MEDS ORDERED: NA CHLORIDE 0.9% 500 ML ONE (06:45)
[2021-11-21] MEDS ORDERED: LIDOCAINE 1% MPF 30 ML VIAL ONE (08:13)
[2021-11-21 09:55] VITALS: BP 124/58; O2SAT 96
--- NOTE | 2021-11-22 00:31 | OP ---
Date of Procedure: 11/21/2021 Surgeon: PATRIC DELCID Procedures Performed: 1.Selective coronary angiogram. 2.Left heart catheterization. 3.Right heart catheterization. Indications: 1.Congestive heart failure. 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 Access: 1.Right IJ 7-Gambian closed with manual pressure. 2.Right radial artery 6-Gambian closed with TR band. Complications: None. Estimated Blood Loss: Bleeding less than 10 mL. Anesthesia: Total sedation time was 50 minutes. Description Of Procedure: After risks, benefits, and alternatives were explained, the patient agreed to the procedure and signed informed consent. Patient was brought into the cardiac catheterization laboratory and prepped and draped in usual sterile fashion. Then we accessed the right radial artery using pediatric micropuncture kit, placed a 6-Gambian slender sheath and accessed right IJ. Using ul trasound guidance and micropuncture kit, placed a 7-Gambian [place] sheath and took a 7-Gambian [place] c atheter into the RA, RV, PA and recorded pressure and then we took a 5-Gambian [place] 4 catheter into t he aortic root, engaged left main and right coronary artery, took standard views and then the cathete r was advanced over the wire into the LV and did a simultaneous LV and RV tracing with respiratory va riation and then removed the catheter and sheath, placed TR band with good hemostasis and removed the [place] and the sheath, and manual pressure was applied with good hemostasis. Findings: 1.Left main: Large, normal. 2.LAD has diffuse mid LAD disease that is ranging between 60%-70%. It is a large vessel and distall y there is a focal 70% stenosis. Diagonal branches with luminal irregularities. 3.Left circumflex: Proximal luminal irregularities and mid 50% focal stenosis. OM appears normal, but tortuous. 4.RCA: Very large and dominant, proximal 20% and then mid multiple areas of 20%-30% stenosis, but v olivia large vessel with RAYMOND-3 flow. 5.Right heart cath measurements: RA pressure was 18. RV pressure was 78/2 with a pressure of 17. PA pressure was 76/25 with a mean of 46, but which was recorded as 33. LV pressure was recorded as 7 . LVEDP was recorded at 7 mmHg. The aortic waveform was not very clear and there was some discordan ce in the RV and LV pressures and square root sign is also present and equalization of diastolic pres sures also is present. Conclusion: 1.[id number] left anterior descending stenosis, needs to be further evaluated either with FF R or stress test. 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 Recommendations: 1.We will plan for exercise nuclear stress test first to evaluate the need for PCI of the LAD. 2.We will arrange to see the patient in the office and proceed with the further workup and possible intervention for possible constrictive pericarditis as outlined above. /ONI Voice ID: [id number] Report ID: [id number]
== END 2021-11-21 10:29 | disposition home or self-care (01) ==
LOC: CCL 06:30
PROVIDERS: ATTEND Internal Medicine
DX: I13.0 Hypertensive heart and chronic kidney disease with heart failure and stage 1 through stage 4 chronic kidney disease, or unspecified chronic kidney disease (principal); I50.32 Chronic diastolic (congestive) heart failure; N18.30 Chronic kidney disease, stage 3 unspecified; E11.22 Type 2 diabetes mellitus with diabetic chronic kidney disease; I48.21 Permanent atrial fibrillation; E78.2 Mixed hyperlipidemia; K21.9 Gastro-esophageal reflux disease without esophagitis; K50.90 Crohn's disease, unspecified, without complications; I89.0 Lymphedema, not elsewhere classified; E66.01 Morbid (severe) obesity due to excess calories; Z68.42 Body mass index [BMI] 45.0-49.9, adult; Z95.0 Presence of cardiac pacemaker; Z88.3 Allergy status to other anti-infective agents; Z88.5 Allergy status to narcotic agent; Z20.822 Contact with and (suspected) exposure to COVID-19
CPT/HCPCS: 93005; 85025; 80048; 36415; 85610; 82947; 85730; 93460; 76937; 87811; C1893; Q9966; J1644 ×2; J2250; J3010; J7040

== ENCOUNTER 2022-03-24 11:31 | Inpatient (IN) | payer OTHER ==
--- OUTSIDE RECORDS SUMMARY | 2022-03-24 11:47 | XMS REPORT | Continuity of Care Document ---
:1945 Author Organization [facility] t Address [address] [place] [address] Care Team Providers Name Role Phone Abdiaziz Fuchs Attending Clinician Unavailable Jesus Landry Attending Clinician Unavailable Jeffry Hsu Attending Clinician Unavailable Jesus Landry Admitting Clinician Unavailable Jeffry Hsu Admitting Clinician Unavailable Abdiaziz Fuchs Admitting Clinician Unavailable Payers Payer Name Policy Type Policy Number Effective Date Expiration Date S ource Problems This patient has no known problems. Allergies, Adverse Reactions, Alerts Allergy Allergy Status Severity Reaction(s) Onset Inactive Treating Comm ents Source Name Type Date Date Clinician morphine DA Active [facility] RASH, 2021-03 [facility]-26 [place] 00:00: d 00 [facility] ciproflo DA Active [facility] JOINT PAIN 2021-03 [facility] xacin 0-26 [place] 00:00: d 00 [facility] morphine DA Active SV RASH, [facility] 9-30 [place] 00:00: d 00 [facility] ciproflo DA Active SV JOINT PAIN 2021- [facility] xacin 9-30 [place] 00:00: d 00 [facility] Medications This patient has no known medications. Procedures Procedure Date / Time Performed Performing Clinician Terese regalado [id number] 2022-01-07 00:00:00 GIBJE.01 [facility] [id number] 2022-01-07 00:00:00 GIBJE.01 [facility] [id number] 2022-01-07 00:00:00 GIBJE.01 [facility] [id number] 2022-01-07 00:00:00 GIBJE.01 [facility] [id number] 2021-12-26 00:00:00 ALKNE [facility] [id number] 2021-12-26 00:00:00 ALKNE [facility] [id number] 2021-12-24 00:00:00 HYDSH [facility] [id number] 2021-12-24 00:00:00 HYDSH [facility] [id number] 2021-12-24 00:00:00 HYDSH [facility] [id number] 2021-12-19 00:00:00 MOUAN [facility] [id number] 2021-12-19 00:00:00 CHAAB.01 [facility] [id number] 2021-12-19 00:00:00 CHAAB.01 [facility] [id number] 2021-12-19 00:00:00 CHAAB.01 [facility] [id number] 2021-12-19 00:00:00 CHAAB.01 [facility] [id number] 2021-12-19 00:00:00 CHAAB.01 [facility] [id number] 2021-12-19 00:00:00 CHAAB.01 [facility] [id number] 2021-12-19 00:00:00 ALKNE [facility] [id number] 2021-12-19 00:00:00 ALKNE [facility] [id number] 2021-12-19 00:00:00 ALKNE [facility] [id number] 2021-12-19 00:00:00 ALKNE [facility] [id number] 2021-12-19 00:00:00 ALKNE [facility] [id number] 2021-12-19 00:00:00 ALKNE [facility] [id number] 2021-12-19 00:00:00 ALKNE [facility] [id number] 2021-12-19 00:00:00 FARHAN LEWIS [facility] [id number] 2021-12-17 00:00:00 CLARKE LEWIS [facility] [id number] 2021-12-17 00:00:00 CLARKE [facility] Encounters Start End Encounter Admission Attending Care Care Encounter Source Date/Time Date/Time Type Type Clinicians Facility Department ID 2021-09-04 Outpatient Fuchs, STLMLC STLMLC [id number] Common 14:26:02 Abdiaziz [facility] 2021-06-25 Outpatient STLMLC STLMLC [id number] Common 10:03:03 [facility] 2021-06-18 Outpatient STLMLC STLMLC [id number] Common 08:37:02 55319 [facility] 2021-06-13 Outpatient STLMLC STLMLC [id number] Common 10:29:05 [facility] 2022-01-07 2022-01-21 Inpatient SHUKRI Landry HCACL REHA [id number] [facility] 19:57:00 23:59:00 Jesus 63 [facility] 2021-12-17 2022-01-[address] INTE [id number] [facility] 12:00:00 19:20:00 Jeffry 32 [facility] 2021-12-12 2021-12-12 Outpatient JOSHUA StCL ZZZB [id number] [facility] 08:00:00 09:00:00 Jeffry 24 [facility] Results Test Description Test Time Test Comments Results Result Comments Source GLUCOSE BEDSIDE 2022-01-22 02:18:00 Test Item Value Reference Range Interpretation Comme nts GLUCOSE BEDSIDE (test code = 150 MG/DL 70-110 H Performed by certified 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[facility]) [facility] CBC W/AUTO [id number] 08:16:00 Test Item Value Reference Range Interpretation Comments WHITE BLOOD CELL (test code = 5.2 x10 3/uL 4.5-11.0 N WBC) RED BLOOD CELL (test code = 2.56 x10 6/uL 3.54-5.02 L RBC) HEMOGLOBIN (test code = HGB) 10.6 g/dL 11.0-15.0 L HEMATOCRIT (test code = HCT) 29.1 % 33.0-45.0 L MEAN CELL VOLUME (test code = 113.7 fL 81.0-99.0 H MCV) MEAN CELL HGB (test code = MCH) 41.4 pg 27.0-33.0 H MEAN CELL HGB CONCETRATION 36.4 g/dL 33.0-37.0 N (test code = MCHC) RED CELL DISTRIBUTION WIDTH CV 17.2 % 11.5-14.5 H (test code = RDW) RED CELL DISTRIBUTION WIDTH SD 71.1 fL 37.0-54.0 H (test code = RDW-SD) PLATELET COUNT (test code = 140 x10 3/uL 150-400 L PLT) MEAN PLATELET VOLUME (test code 11.3 fL 7.0-9.0 H = MPV) NEUTROPHIL % (test code = NT%) 73.0 % 56.0-77.0 N IMMATURE GRANULOCYTE % (test 0.4 % 0.0-2.0 N code = IG%) LYMPHOCYTE % (test code = LY%) 10.0 % 14.0-32.0 L MONOCYTE % (test code = MO%) 13.3 % 4.8-9.0 H EOSINOPHIL % (test code = EO%) 2.9 % 0.3-3.7 N BASOPHIL % (test code = BA%) 0.4 % 0.0-2.0 N NUCLEATED RBC % (test code = 0.0 % 0-0 N NRBC%) NEUTROPHIL # (test code = NT#) 3.79 x10 3/uL 2.0-7.6 N IMMATURE GRANULOCYTE # (test 0.02 x10 3/uL 0.00-0.03 N code = IG#) LYMPHOCYTE # (test code = LY#) 0.52 x10 3/uL 1.0-3.8 L MONOCYTE # (test code = MO#) 0.69 x10 3/uL 0.1-0.8 N EOSINOPHIL # (test code = EO#) 0.15 x10 3/uL 0.0-0.2 N BASOPHIL # (test code = BA#) 0.02 x10 3/uL 0.0-0.2 N NUCLEATED RBC # (test code = 0.00 x10 3/uL 0.0-0.1 N NRBC#) MANUAL DIFF REQUIRED (test code NO = MDIFF) BASIC METABOLIC [id number] 07:50:00 Test Item Value Reference Range Interpretation Comments SODIUM (test code = 139 mEq/L 134-147 N NA) POTASSIUM (test code 3.5 mEq/L 3.4-5.0 N = K) CHLORIDE (test code 100 mEq/L 100-108 N = CL) CARBON DIOXIDE (test 31 mEq/l 21-33 N code = CO2) ANION GAP (test code 12 0-20 N = GAP) GLUCOSE (test code = 84 mg/dL 70-110 N GLU) BLOOD UREA NITROGEN 8 mg/dL 7-18 (test code = BUN) GLOMERULAR 65.4 70-80 L The Glomerular FILTRATION RATE Filtration R ate is a (test code = GFR) calculated parameterbased on serum Creatinine, pat ient age and sex. GFR va luesless than 60 mL/min/ 1.73 square meters a re indicative ofCh ronic Kidney Disease. Values less than 15 mL/min/1.73squa re meters indicate Kidney failure. The calculation forGFR is based on the CKD-EPI (2020) calculat ion. This formulais race indifferent and is the recommended for oscar for GFRby the [facility] on for Adults.The GFR will not calculate if th e sex is unknown or if thepatient's ag e is <18 years. CREATININE (test 0.9 mg/dL 0.6-1.3 N code = CREAT) CALCIUM (test code = 9.6 mg/dL 8.0-10.5 N CA) [id number] 07:50:00 Test Item Value Reference Range Interpretation Comments MAGNESIUM (test code = MAG) 2.05 mg/dL 1.80-2.40 N GLUCOSE [id number] 06:41:00 Test Item Value Reference Range Interpretation Comments GLUCOSE BEDSIDE (test 99 MG/DL 70-110 N Perfor med by certified code = GLUBED) 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[facility] GLUCOSE [id number] 20:16:00 Test Item Value Reference Range Interpretation Comments GLUCOSE BEDSIDE (test 196 MG/DL 70-110 H Perfor med by certified code = GLUBED) 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[facility] GLUCOSE [id number] 16:27:00 Test Item Value Reference Range Interpretation Comments GLUCOSE BEDSIDE (test 207 MG/DL 70-110 H Perfor med by certified code = GLUBED) 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[facility] GLUCOSE [id number] 11:35:00 Test Item Value Reference Range Interpretation Comments GLUCOSE BEDSIDE (test 161 MG/DL 70-110 H Perfor med by certified code = GLUBED) 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[facility] GLUCOSE [id number] 06:01:00 Test Item Value Reference Range Interpretation Comments GLUCOSE BEDSIDE (test 112 MG/DL 70-110 H Perfor med by certified code = GLUBED) 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[facility] GLUCOSE [id number] 19:38:00 Test Item Value Reference Range Interpretation Comments GLUCOSE BEDSIDE (test 197 MG/DL 70-110 H Perfor med by certified code = GLUBED) 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[facility] GLUCOSE [id number] 16:10:00 Test Item Value Reference Range Interpretation Comments GLUCOSE BEDSIDE (test 166 MG/DL 70-110 H Perfor med by certified code = GLUBED) 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[facility] GLUCOSE [id number] 11:37:00 Test Item Value Reference Range Interpretation Comments GLUCOSE BEDSIDE (test 136 MG/DL 70-110 H Perfor med by certified code = GLUBED) 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[facility] CBC W/AUTO [id number] 08:13:00 Test Item Value Reference Range Interpretation Comments WHITE BLOOD CELL (test code = 6.1 x10 3/uL 4.5-11.0 N WBC) RED BLOOD CELL (test code = 3.09 x10 6/uL 3.54-5.02 L RBC) HEMOGLOBIN (test code = HGB) 10.2 g/dL 11.0-15.0 L HEMATOCRIT (test code = HCT) 34.3 % 33.0-45.0 N MEAN CELL VOLUME (test code = 111.0 fL 81.0-99.0 H MCV) MEAN CELL HGB (test code = MCH) 33.0 pg 27.0-33.0 N MEAN CELL HGB CONCETRATION 29.7 g/dL 33.0-37.0 L (test code = MCHC) RED CELL DISTRIBUTION WIDTH CV 17.4 % 11.5-14.5 H (test code = RDW) RED CELL DISTRIBUTION WIDTH SD 72.1 fL 37.0-54.0 H (test code = RDW-SD) PLATELET COUNT (test code = 135 x10 3/uL 150-400 L PLT) MEAN PLATELET VOLUME (test code 11.7 fL 7.0-9.0 H = MPV) NEUTROPHIL % (test code = NT%) 76.8 % 56.0-77.0 N IMMATURE GRANULOCYTE % (test 0.3 % 0.0-2.0 N code = IG%) LYMPHOCYTE % (test code = LY%) 8.1 % 14.0-32.0 L MONOCYTE % (test code = MO%) 11.7 % 4.8-9.0 H EOSINOPHIL % (test code = EO%) 2.3 % 0.3-3.7 N BASOPHIL % (test code = BA%) 0.8 % 0.0-2.0 N NUCLEATED RBC % (test code = 0.0 % 0-0 N NRBC%) NEUTROPHIL # (test code = NT#) 4.66 x10 3/uL 2.0-7.6 N IMMATURE GRANULOCYTE # (test 0.02 x10 3/uL 0.00-0.03 N code = IG#) LYMPHOCYTE # (test code = LY#) 0.49 x10 3/uL 1.0-3.8 L MONOCYTE # (test code = MO#) 0.71 x10 3/uL 0.1-0.8 N EOSINOPHIL # (test code = EO#) 0.14 x10 3/uL 0.0-0.2 N BASOPHIL # (test code = BA#) 0.05 x10 3/uL 0.0-0.2 N NUCLEATED RBC # (test code = 0.00 x10 3/uL 0.0-0.1 N NRBC#) MANUAL DIFF REQUIRED (test code NO = MDIFF) BASIC METABOLIC [id number] 07:37:00 Test Item Value Reference Range Interpretation Comments SODIUM (test code = 141 mEq/L 134-147 N NA) POTASSIUM (test code 3.4 mEq/L 3.4-5.0 N = K) CHLORIDE (test code 100 mEq/L 100-108 N = CL) CARBON DIOXIDE (test 31 mEq/l 21-33 N code = CO2) ANION GAP (test code 13 0-20 N = GAP) GLUCOSE (test code = 92 mg/dL 70-110 N GLU) BLOOD UREA NITROGEN 15 mg/dL 7-18 N (test code = BUN) GLOMERULAR 65.4 70-80 L The Glomerular FILTRATION RATE Filtration R ate is a (test code = GFR) calculated parameterbased on serum Creatinine, pat ient age and sex. GFR va luesless than 60 mL/min/ 1.73 square meters a re indicative ofCh ronic Kidney Disease. Values less than 15 mL/min/1.73squa re meters indicate Kidney failure. The calculation forGFR is based on the CKD-EPI (2020) calculat ion. This formulais race indifferent and is the recommended for oscar for GFRby the [facility] on for Adults.The GFR will not calculate if th e sex is unknown or if thepatient's ag e is <18 years. CREATININE (test 0.9 mg/dL 0.6-1.3 N code = CREAT) CALCIUM (test code = 9.3 mg/dL 8.0-10.5 N CA) [id number] 07:37:00 Test Item Value Reference Range Interpretation Comments MAGNESIUM (test code = MAG) 1.90 mg/dL 1.80-2.40 N B-TYPE NATRIURETIC [id number] 07:14:00 Test Item Value Reference Range Interpretation Comments B-TYPE NATRIURETIC PEPTIDE (test 241.0 PG/ML 0-100 H code = BNP) GLUCOSE [id number] 06:39:00 Test Item Value Reference Range Interpretation Comments GLUCOSE BEDSIDE (test 93 MG/DL 70-110 N Perfor med by certified code = GLUBED) 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[facility] GLUCOSE [id number] 01:49:00 Test Item Value Reference Range Interpretation Comments GLUCOSE BEDSIDE (test 77 MG/DL 70-110 N Perfor med by certified code = GLUBED) 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[facility] GLUCOSE [id number] 01:20:00 Test Item Value Reference Range Interpretation Comments GLUCOSE BEDSIDE (test 56 MG/DL 70-110 L Perfor med by certified code = GLUBED) 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[facility] GLUCOSE [id number] 20:14:00 Test Item Value Reference Range Interpretation Comments GLUCOSE BEDSIDE (test 192 MG/DL 70-110 H Perfor med by certified code = GLUBED) 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[facility] GLUCOSE [id number] 16:26:00 Test Item Value Reference Range Interpretation Comments GLUCOSE BEDSIDE (test 162 MG/DL 70-110 H Perfor med by certified code = GLUBED) 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[facility] GLUCOSE [id number] 12:27:00 Test Item Value Reference Range Interpretation Comments GLUCOSE BEDSIDE (test 128 MG/DL 70-110 H Perfor med by certified code = GLUBED) 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[facility] URINALYSIS [id number] 11:00:00 Test Item Value Reference Range Interpretation Comments UA COLOR (test code = COLU) YELLOW YEL/STRAW UA APPEARANCE (test code = APPU) SL CLOUDY CLEAR UA GLUCOSE DIPSTICK (test code = NEGATIVE NEGATIVE DGLUU) UA BILIRUBIN DIPSTICK (test code NEGATIVE NEGATIVE = BILU) UA KETONE DIPSTICK (test code = NEGATIVE NEGATIVE KETU) UA SPECIFIC GRAVITY (test code = 1.012 1.005-1.030 N SGU) UA BLOOD DIPSTICK (test code = NEGATIVE NEGATIVE LALY) UA PH DIPSTICK (test code = CLEMENTINA) 7.0 5.0-7.0 N UA PROTEIN DIPSTICK (test code = NEGATIVE NEGATIVE PROU) UA UROBILINIOGEN DIPSTICK (test 2.0 mg/dL 0.2-1.0 A code = URO) UA NITRITE DIPSTICK (test code = POSITIVE NEGATIVE A SAMARIA) UA LEUKOCYTE ESTERASE DIPSTICK 1+ NEGATIVE A (test code = LEUU) UA RBC (test code = RBCU) 0-3 RBC/HPF 0-3 UA WBC NO REFLEX (test code = 0-3 WBC/HPF 0-3 WBCUCL) UA BACTERIA (test code = BACU) 4+ /HPF NONE SEEN A UA SQUAMOUS CELLS (test code = 11-25 /HPF NONE SEEN A SQU) UA MUCUS (test code = MUCU) TRACE /LPF NONE SEEN BASIC METABOLIC [id number] 06:05:00 Test Item Value Reference Range Interpretation Comments SODIUM (test code = 142 mEq/L 134-147 N NA) POTASSIUM (test code 3.4 mEq/L 3.4-5.0 N = K) CHLORIDE (test code 102 mEq/L 100-108 N = CL) CARBON DIOXIDE (test 33 mEq/l 21-33 N code = CO2) ANION GAP (test code 10 0-20 N = GAP) GLUCOSE (test code = 80 mg/dL 70-110 N GLU) BLOOD UREA NITROGEN 16 mg/dL 7-18 N (test code = BUN) GLOMERULAR 75.4 70-80 N The Glomerular FILTRATION RATE Filtration R ate is a (test code = GFR) calculated parameterbased on serum Creatinine, pat ient age and sex. GFR va luesless than 60 mL/min/ 1.73 square meters a re indicative ofCh ronic Kidney Disease. Values less than 15 mL/min/1.73squa re meters indicate Kidney failure. The calculation forGFR is based on the CKD-EPI (2020) calculat ion. This formulais race indifferent and is the recommended for oscar for GFRby the [facility] on for Adults.The GFR will not calculate if th e sex is unknown or if thepatient's ag e is <18 years. CREATININE (test 0.8 mg/dL 0.6-1.3 N code = CREAT) CALCIUM (test code = 9.3 mg/dL 8.0-10.5 N CA) CALCIUM [id number] 06:05:00 Test Item Value Reference Range Interpretation Comments CALCIUM IONIZED (test code = TYREE) 1.15 MMOL/L 1.09-1.30 N GLUCOSE [id number] 05:24:00 Test Item Value Reference Range Interpretation Comments GLUCOSE BEDSIDE (test 78 MG/DL 70-110 N Perfor med by certified code = GLUBED) 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[facility] GLUCOSE [id number] 20:24:00 Test Item Value Reference Range Interpretation Comments GLUCOSE BEDSIDE (test 142 MG/DL 70-110 H Perfor med by certified code = GLUBED) 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[facility] GLUCOSE [id number] 17:17:00 Test Item Value Reference Range Interpretation Comments GLUCOSE BEDSIDE (test 157 MG/DL 70-110 H Perfor med by certified code = GLUBED) 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[facility] GLUCOSE [id number] 12:04:00 Test Item Value Reference Range Interpretation Comments GLUCOSE BEDSIDE (test 132 MG/DL 70-110 H Perfor med by certified code = GLUBED) 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[facility] CBC W/AUTO [id number] 10:36:00 Test Item Value Reference Range Interpretation Comments WHITE BLOOD CELL (test code = 4.4 x10 3/uL 4.5-11.0 L WBC) RED BLOOD CELL (test code = 2.87 x10 6/uL 3.54-5.02 L RBC) HEMOGLOBIN (test code = HGB) 10.1 g/dL 11.0-15.0 L HEMATOCRIT (test code = HCT) 32.7 % 33.0-45.0 L MEAN CELL VOLUME (test code = 113.9 fL 81.0-99.0 H MCV) MEAN CELL HGB (test code = MCH) 35.2 pg 27.0-33.0 H MEAN CELL HGB CONCETRATION 30.9 g/dL 33.0-37.0 L (test code = MCHC) RED CELL DISTRIBUTION WIDTH CV 17.8 % 11.5-14.5 H (test code = RDW) RED CELL DISTRIBUTION WIDTH SD 74.3 fL 37.0-54.0 H (test code = RDW-SD) PLATELET COUNT (test code = 111 x10 3/uL 150-400 L PLT) MEAN PLATELET VOLUME (test code 11.0 fL 7.0-9.0 H = MPV) NEUTROPHIL % (test code = NT%) 76.0 % 56.0-77.0 N IMMATURE GRANULOCYTE % (test 0.5 % 0.0-2.0 N code = IG%) LYMPHOCYTE % (test code = LY%) 8.6 % 14.0-32.0 L MONOCYTE % (test code = MO%) 11.4 % 4.8-9.0 H EOSINOPHIL % (test code = EO%) 3.0 % 0.3-3.7 N BASOPHIL % (test code = BA%) 0.5 % 0.0-2.0 N NUCLEATED RBC % (test code = 0.0 % 0-0 N NRBC%) NEUTROPHIL # (test code = NT#) 3.35 x10 3/uL 2.0-7.6 N IMMATURE GRANULOCYTE # (test 0.02 x10 3/uL 0.00-0.03 N code = IG#) LYMPHOCYTE # (test code = LY#) 0.38 x10 3/uL 1.0-3.8 L MONOCYTE # (test code = MO#) 0.50 x10 3/uL 0.1-0.8 N EOSINOPHIL # (test code = EO#) 0.13 x10 3/uL 0.0-0.2 N BASOPHIL # (test code = BA#) 0.02 x10 3/uL 0.0-0.2 N NUCLEATED RBC # (test code = 0.00 x10 3/uL 0.0-0.1 N NRBC#) MANUAL DIFF REQUIRED (test code NO = MDIFF) GLUCOSE [id number] 06:21:00 Test Item Value Reference Range Interpretation Comments GLUCOSE BEDSIDE (test 119 MG/DL 70-110 H Perfor med by certified code = GLUBED) 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[facility] - XR CHEST 2 [id number] 00:00:[address] [facility] 1945 Sex: F FAX:Suki Fuchs MD [place]: St: ADM FAX: Abdiaziz Christiansen MD [phone] FAX: Jesus Flores [phone] Name: SAÚL GILES [facility] : 1945 Age/S: 76/F [address] [place] [address] Bl Unit #: [id number] Loc: [address] [address] Phys: Suki Fuchs MD Acct: [id number] Dis Date: Status: ADM IN PHONE #: [phone] Exam Date: 01/17/2022 1445 FAX #: [phone] Reason: FOR WORSENING BREATHING/CONGESTION EXAMS: CPT CODE: [id number] XR CHEST 2 V [id number] PROCEDURE INFORMATION: Exam: XR Chest Exam date and time: 01/17/2022 2:22 PM Age: 76 years old Clinical indication: Other: For worsening breathing/congestion TECHNIQUE: Imaging protocol: Radiologic exam of the chest. Views: 2 views. PA and Lateral COMPARISON: CR XR CHEST 1V 01/14/2022 8:43 AM FINDINGS: Tubes, catheters and devices: Stable position of left cardiac pacemaker. Lungs: Progression of pulmonary vascular congestion and interstitial opacities. Stable linear atelectasis right mid lung zone. Pleural spaces: No pneumothorax or significant pleural effusion. Heart/Mediastinum: Stable cardiomegaly. Status post cardiac valve replacement. Vasculature: Atherosclerotic calcification and tortuosity of the aorta. Bones/joints: Bones are osteopenic. Degenerative changes of the spine. Sternotomy wires. . IMPRESSION: Progression of pulmonary edema. at 1501 Reported and signed by: Phyllis Ruby M.D. CC: Suki Fuchs MD; Abdiaziz Fuchs MD; Jesus Landry Technologist: RT Cain(Marla) Trnscrd Date/Time/By: 01/17/2022 (1504) : By: [email or web address] [facility] Print D/T: S: 01/17/2022 (5524) PAGE 1 Signed ReportGLUCOSE [id number] 21:08:00 Test Item Value Reference Range Interpretation Comments GLUCOSE BEDSIDE (test 200 MG/DL 70-110 H Perfor med by certified code = GLUBED) 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[facility] GLUCOSE [id number] 16:14:00 Test Item Value Reference Range Interpretation Comments GLUCOSE BEDSIDE (test 127 MG/DL 70-110 H Perfor med by certified code = GLUBED) 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[facility] GLUCOSE [id number] 11:59:00 Test Item Value Reference Range Interpretation Comments GLUCOSE BEDSIDE (test 117 MG/DL 70-110 H Perfor med by certified code = GLUBED) 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[facility] B-TYPE NATRIURETIC [id number] 10:47:00 Test Item Value Reference Range Interpretation Comments B-TYPE NATRIURETIC PEPTIDE (test 258.0 PG/ML 0-100 H code = BNP) BASIC METABOLIC [id number] 07:58:00 Test Item Value Reference Range Interpretation Comments SODIUM (test code = NA) 141 mEq/L 134-147 N POTASSIUM (test code = 3.9 mEq/L 3.4-5.0 N K) CHLORIDE (test code = 101 mEq/L 100-108 N CL) CARBON DIOXIDE (test 35 mEq/l 21-33 H code = CO2) ANION GAP (test code = 9 0-20 N GAP) GLUCOSE (test code = 58 mg/dL 70-110 L GLU) BLOOD UREA NITROGEN 16 mg/dL 7-18 N (test code = BUN) GLOMERULAR FILTRATION 60.6 70-80 L Units of measure = RATE (test code = GFR) ml/mi n/1.73 m2 CREATININE (test code = 0.9 mg/dL 0.6-1.3 N CREAT) CALCIUM (test code = 9.5 mg/dL 8.0-10.5 N CA) CALCIUM [id number] 07:58:00 Test Item Value Reference Range Interpretation Comments CALCIUM IONIZED (test code = TYREE) 1.16 MMOL/L 1.09-1.30 N GLUCOSE [id number] 06:17:00 Test Item Value Reference Range Interpretation Comments GLUCOSE BEDSIDE (test 98 MG/DL 70-110 N Perfor med by certified code = GLUBED) 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[facility] GLUCOSE [id number] 21:19:00 Test Item Value Reference Range Interpretation Comments GLUCOSE BEDSIDE (test 132 MG/DL 70-110 H Perfor med by certified code = GLUBED) 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[facility] GLUCOSE [id number] 15:45:00 Test Item Value Reference Range Interpretation Comments GLUCOSE BEDSIDE (test 159 MG/DL 70-110 H Perfor med by certified code = GLUBED) 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[facility] GLUCOSE [id number] 11:16:00 Test Item Value Reference Range Interpretation Comments GLUCOSE BEDSIDE (test 154 MG/DL 70-110 H Perfor med by certified code = GLUBED) 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[facility] GLUCOSE [id number] 06:02:00 Test Item Value Reference Range Interpretation Comments GLUCOSE BEDSIDE (test 113 MG/DL 70-110 H Perfor med by certified code = GLUBED) 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[facility] GLUCOSE [id number] 05:18:00 Test Item Value Reference Range Interpretation Comments GLUCOSE BEDSIDE (test 57 MG/DL 70-110 L Perfor med by certified code = GLUBED) 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[facility] GLUCOSE [id number] 19:38:00 Test Item Value Reference Range Interpretation Comments GLUCOSE BEDSIDE (test 186 MG/DL 70-110 H Perfor med by certified code = GLUBED) 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[facility] GLUCOSE [id number] 16:05:00 Test Item Value Reference Range Interpretation Comments GLUCOSE BEDSIDE (test 183 MG/DL 70-110 H Perfor med by certified code = GLUBED) 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[facility] GLUCOSE [id number] 11:25:00 Test Item Value Reference Range Interpretation Comments GLUCOSE BEDSIDE (test 114 MG/DL 70-110 H Perfor med by certified code = GLUBED) 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[facility] BASIC METABOLIC [id number] 08:05:00 Test Item Value Reference Range Interpretation Comments SODIUM (test code = NA) 141 mEq/L 134-147 N POTASSIUM (test code = 3.9 mEq/L 3.4-5.0 N K) CHLORIDE (test code = 98 mEq/L 100-108 L CL) CARBON DIOXIDE (test 38 mEq/l 21-33 H code = CO2) ANION GAP (test code = 9 0-20 N GAP) GLUCOSE (test code = 74 mg/dL 70-110 N GLU) BLOOD UREA NITROGEN 16 mg/dL 7-18 N (test code = BUN) GLOMERULAR FILTRATION 53.6 70-80 L Units of measure = RATE (test code = GFR) ml/mi n/1.73 m2 CREATININE (test code = 1.0 mg/dL 0.6-1.3 N CREAT) CALCIUM (test code = 9.2 mg/dL 8.0-10.5 N CA) [id number] 08:05:00 Test Item Value Reference Range Interpretation Comments MAGNESIUM (test code = MAG) 1.83 mg/dL 1.80-2.40 N GLUCOSE [id number] 05:00:00 Test Item Value Reference Range Interpretation Comments GLUCOSE BEDSIDE (test 83 MG/DL 70-110 N [facility] med by certified code = GLUBED) 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 1945 Sex: F FAX:Abdiaziz Christiansen MD [phone] [place]: St: ADM FAX: Jesus Flores [phone] FAX: Isabella Clemens [phone] Name: SAÚL GILES [facility] : 1945 Age/S: 76/F [address] [place] [address] Unit #: [id number] Loc: [address] [place] [address] Phys: Isabella Clemens AGACNP Acct: [id number] Dis Date: Status: ADM IN PHONE #: [phone] Exam Date: 01/14/2022905 FAX #: [phone] Reason: SOB,CHF EXAMS: CPT CODE: [id number] XR CHEST 1 V 61661 PROCEDURE INFORMATION: Exam: XR Chest Exam date and time: 01/14/2022 8:43 AM Age: 76 years old Clinical indication: Shortness of breath; Additional info: SOB, chf TECHNIQUE: Imaging protocol: Radiologic exam of the chest. Views: 1 view. COMPARISON: CRXR CHEST 1V 01/09/2022 9:40 AM FINDINGS: Lungs: There is minimal vascular congestion with subsegmental atelectasis in the right midlung zone and opacity at the left lung base. Pleural spaces: Unremarkable. No pleural effusion. No pneumothorax. Heart/Mediastinum: The cardiac silhouette is enlarged. 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 Bones/joints: Unremarkable. IMPRESSION: Minimal vascular congestion with subsegmental atelectasis in the right midlung zone and opacity at the left lung base. at 1040 Reported and signed by: Maurice Reddy M.D. CC: Abdiaziz Fuchs MD; Nir Landry; Isabella OKEEFE 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[facility] GLUCOSE [id number] 11:18:00 Test Item Value Reference Range Interpretation Comments GLUCOSE BEDSIDE (test 164 MG/DL 70-110 H Perfor med by certified code = GLUBED) 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[facility] GLUCOSE [id number] 05:19:00 Test Item Value Reference Range Interpretation Comments GLUCOSE BEDSIDE (test 143 MG/DL 70-110 H Per[facility] med by certified code = GLUBED) 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[facility] GLUCOSE [id number] 20:33:00 Test Item Value Reference Range Interpretation Comments GLUCOSE BEDSIDE (test 159 MG/DL 70-110 H Perfor med by certified code = GLUBED) 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[facility] GLUCOSE [id number] 16:47:00 Test Item Value Reference Range Interpretation Comments GLUCOSE BEDSIDE (test 233 MG/DL 70-110 H Perfor med by certified code = GLUBED) 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[facility] GLUCOSE [id number] 11:35:00 Test Item Value Reference Range Interpretation Comments GLUCOSE BEDSIDE (test 164 MG/DL 70-110 H Perfor med by certified code = GLUBED) 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[facility] CBC W/AUTO [id number] 10:51:00 Test Item Value Reference Range Interpretation Comments WHITE BLOOD CELL (test code = 6.0 x10 3/uL 4.5-11.0 N WBC) RED BLOOD CELL (test code = 2.89 x10 6/uL 3.54-5.02 L RBC) HEMOGLOBIN (test code = HGB) 9.8 g/dL 11.0-15.0 L HEMATOCRIT (test code = HCT) 32.7 % 33.0-45.0 L MEAN CELL VOLUME (test code = 113.1 fL 81.0-99.0 H MCV) MEAN CELL HGB (test code = MCH) 33.9 pg 27.0-33.0 H MEAN CELL HGB CONCETRATION 30.0 g/dL 33.0-37.0 L (test code = MCHC) RED CELL DISTRIBUTION WIDTH CV 18.9 % 11.5-14.5 H (test code = RDW) RED CELL DISTRIBUTION WIDTH SD 80.2 fL 37.0-54.0 H (test code = RDW-SD) PLATELET COUNT (test code = 155 x10 3/uL 150-400 N PLT) MEAN PLATELET VOLUME (test code 11.6 fL 7.0-9.0 H = MPV) NEUTROPHIL % (test code = NT%) 82.8 % 56.0-77.0 H IMMATURE GRANULOCYTE % (test 0.2 % 0.0-2.0 N code = IG%) LYMPHOCYTE % (test code = LY%) 5.5 % 14.0-32.0 L MONOCYTE % (test code = MO%) 8.5 % 4.8-9.0 N EOSINOPHIL % (test code = EO%) 2.5 % 0.3-3.7 N BASOPHIL % (test code = BA%) 0.5 % 0.0-2.0 N NUCLEATED RBC % (test code = 0.0 % 0-0 N NRBC%) NEUTROPHIL # (test code = NT#) 4.99 x10 3/uL 2.0-7.6 N IMMATURE GRANULOCYTE # (test 0.01 x10 3/uL 0.00-0.03 N code = IG#) LYMPHOCYTE # (test code = LY#) 0.33 x10 3/uL 1.0-3.8 L MONOCYTE # (test code = MO#) 0.51 x10 3/uL 0.1-0.8 N EOSINOPHIL # (test code = EO#) 0.15 x10 3/uL 0.0-0.2 N BASOPHIL # (test code = BA#) 0.03 x10 3/uL 0.0-0.2 N NUCLEATED RBC # (test code = 0.00 x10 3/uL 0.0-0.1 N NRBC#) MANUAL DIFF REQUIRED (test code NO = MDIFF) RBC [id number] 10:51:00 Test Item Value Reference Range Interpretation Comments ANISOCYTOSIS (test code = ANISO) 2+ POIKILOCYTOSIS (test code = POIK) 1+ MACROCYTOSIS (test code = MACR) 1+ SCHISTOCYTES (test code = FRANKIE) 1+ B-TYPE NATRIURETIC [id number] 09:36:00 Test Item Value Reference Range Interpretation Comments B-TYPE NATRIURETIC PEPTIDE (test 180.0 PG/ML 0-100 H code = BNP) BASIC METABOLIC [id number] 07:41:00 Test Item Value Reference Range Interpretation Comments SODIUM (test code = NA) 139 mEq/L 134-147 N POTASSIUM (test code = 3.5 mEq/L 3.4-5.0 N K) CHLORIDE (test code = 96 mEq/L 100-108 L CL) CARBON DIOXIDE (test 35 mEq/l 21-33 H code = CO2) ANION GAP (test code = 11 0-20 N GAP) GLUCOSE (test code = 73 mg/dL 70-110 GLU) BLOOD UREA NITROGEN 13 mg/dL 7-18 (test code = BUN) GLOMERULAR FILTRATION 53.6 70-80 L Units of measure = RATE (test code = GFR) ml/mi n/1.73 m2 CREATININE (test code = 1.0 mg/dL 0.6-1.3 N CREAT) CALCIUM (test code = 9.0 mg/dL 8.0-10.5 N CA) [id number] 07:41:00 Test Item Value Reference Range Interpretation Comments ALBUMIN (test code = ALB) 3.60 g/dL 3.4-5.0 N [id number] 07:41:00 Test Item Value Reference Range Interpretation Comments MAGNESIUM (test code = MAG) 1.77 mg/dL 1.80-2.40 L [id number] 07:41:00 Test Item Value Reference Range Interpretation Comments PREALBUMIN (test code = PREALB) 13.8 mg/dL 16.0-40.0 L GLUCOSE [id number] 06:00:00 Test Item Value Reference Range Interpretation Comments GLUCOSE BEDSIDE (test 95 MG/DL 70-110 N [facility] med by certified code = GLUBED) 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[facility] GLUCOSE [id number] 06:00:00 Test Item Value Reference Range Interpretation Comments GLUCOSE BEDSIDE (test 100 MG/DL 70-110 N Per[facility] med by certified code = GLUBED) 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[facility] GLUCOSE [id number] 19:49:00 Test Item Value Reference Range Interpretation Comments GLUCOSE BEDSIDE (test 267 MG/DL 70-110 H Per[facility] med by certified code = GLUBED) 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[facility] GLUCOSE [id number] 17:10:00 Test Item Value Reference Range Interpretation Comments GLUCOSE BEDSIDE (test 286 MG/DL 70-110 H Perfor med by certified code = GLUBED) 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[facility] GLUCOSE [id number] 11:42:00 Test Item Value Reference Range Interpretation Comments GLUCOSE BEDSIDE (test 140 MG/DL 70-110 H Perfor med by certified code = GLUBED) 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[facility] FLUID [id number] 11:03:00 Test Item Value Reference Range Interpretation Comments FLUID CO2 (test code = CO2BF) 37 21-33 H [id number] 11:03:00 Test Item Value Reference Range Interpretation Comments FLUID CO2 (test code = CO2BF) 37 21-33 H [id number] METABOLIC [id number] 07:03:00 Test Item Value Reference Range Interpretation Comments SODIUM (test code = NA) 142 mEq/L 134-147 N POTASSIUM (test code = 3.3 mEq/L 3.4-5.0 L K) CHLORIDE (test code = 95 mEq/L 100-108 L CL) CARBON DIOXIDE (test > 40 mEq/l 21-33 H code = CO2) ANION GAP (test code = 10 0-20 N GAP) GLUCOSE (test code = 55 mg/dL 70-110 L GLU) BLOOD UREA NITROGEN 24 mg/dL 7-18 H (test code = BUN) GLOMERULAR FILTRATION 53.6 70-80 L Units of measure = RATE (test code = GFR) ml/mi n/1.73 m2 CREATININE (test code = 1.0 mg/dL 0.6-1.3 N CREAT) CALCIUM (test code = 9.1 mg/dL 8.0-10.5 N CA) [id number] 07:03:00 Test Item Value Reference Range Interpretation Comments MAGNESIUM (test code = MAG) 1.80 mg/dL 1.80-2.40 N GLUCOSE [id number] 06:35:00 Test Item Value Reference Range Interpretation Comments GLUCOSE BEDSIDE (test 71 MG/DL 70-110 N Perfor med by certified code = GLUBED) 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[facility] GLUCOSE [id number] 05:43:00 Test Item Value Reference Range Interpretation Comments GLUCOSE BEDSIDE (test 60 MG/DL 70-110 L Perfor med by certified code = GLUBED) 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[facility] GLUCOSE [id number] 20:43:00 Test Item Value Reference Range Interpretation Comments GLUCOSE BEDSIDE (test 194 MG/DL 70-110 H Perfor med by certified code = GLUBED) 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[facility] GLUCOSE [id number] 16:59:00 Test Item Value Reference Range Interpretation Comments GLUCOSE BEDSIDE (test 179 MG/DL 70-110 H Perfor med by certified code = GLUBED) 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[facility] FLUID [id number] 16:10:00 Test Item Value Reference Range Interpretation Comments FLUID CO2 (test code = CO2BF) 39 21-33 H FLUID [id number] 16:10:00 Test Item Value Reference Range Interpretation Comments FLUID CO2 (test code = CO2BF) 39 21-33 H GLUCOSE [id number] 12:10:00 Test Item Value Reference Range Interpretation Comments GLUCOSE BEDSIDE (test 137 MG/DL 70-110 H Perfor med by certified code = GLUBED) 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[facility] BASIC METABOLIC [id number] 08:04:00 Test Item Value Reference Range Interpretation Comments SODIUM (test code = NA) 142 mEq/L 134-147 N POTASSIUM (test code = 3.0 mEq/L 3.4-5.0 L K) CHLORIDE (test code = 96 mEq/L 100-108 L CL) CARBON DIOXIDE (test > 40 mEq/l 21-33 H code = CO2) ANION GAP (test code = 9 0-20 N GAP) GLUCOSE (test code = 65 mg/dL 70-110 L GLU) BLOOD UREA NITROGEN 24 mg/dL 7-18 H (test code = BUN) GLOMERULAR FILTRATION 48.0 70-80 L Units of measure = RATE (test code = GFR) ml/mi n/1.73 m2 CREATININE (test code = 1.1 mg/dL 0.6-1.3 N CREAT) CALCIUM (test code = 9.0 mg/dL 8.0-10.5 N CA) CALCIUM [id number] 08:04:00 Test Item Value Reference Range Interpretation Comments CALCIUM IONIZED (test code = TYREE) 1.15 MMOL/L 1.09-1.30 N GLUCOSE [id number] 05:42:00 Test Item Value Reference Range Interpretation Comments GLUCOSE BEDSIDE (test 92 MG/DL 70-110 N Perfor med by certified code = GLUBED) 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[facility] GLUCOSE [id number] 19:49:00 Test Item Value Reference Range Interpretation Comments GLUCOSE BEDSIDE (test 204 MG/DL 70-110 H Perfor med by certified code = GLUBED) 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[facility] GLUCOSE [id number] 15:58:00 Test Item Value Reference Range Interpretation Comments GLUCOSE BEDSIDE (test 122 MG/DL 70-110 H Perfor med by certified code = GLUBED) 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[facility] GLUCOSE [id number] 11:08:00 Test Item Value Reference Range Interpretation Comments GLUCOSE BEDSIDE (test 172 MG/DL 70-110 H Perfor med by certified code = GLUBED) 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[facility] [id number] 07:38:00 Test Item Value Reference Range Interpretation Comments POTASSIUM (test code = K) 3.0 mEq/L 3.4-5.0 L B-TYPE NATRIURETIC [id number] 07:27:00 Test Item Value Reference Range Interpretation Comments B-TYPE NATRIURETIC PEPTIDE (test 232.0 PG/ML 0-100 H code = BNP) GLUCOSE [id number] 06:10:00 Test Item Value Reference Range Interpretation Comments GLUCOSE BEDSIDE (test 94 MG/DL 70-110 N Perfor med by certified code = GLUBED) 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 1945 Sex: F FAX: Abdiaziz Christiansen MD [phone] [place]: St: ADM FAX: Jesus Flores [phone] Name: SAÚL GILES [facility] : 1945 Age/S: 76/F [address] [place] [address] Unit #: [id number] Loc: [address] [place] [address] Phys: Jesus Landry MD Acct: [id number] Dis Date: Status: ADM IN PHONE #: [phone] Exam Date: 01/09/2022 0949 FAX #: [phone] Reason: SHORTNESS OF BREATH EXAMS: CPT CODE: [id number] CHEST 1 V 57523 PROCEDURE INFORMATION: Exam: XR Chest Exam date and time: 01/09/2022 9:40 AM Age: 76 years old Clinical indication: Shortness of breath TECHNIQUE: Imaging protocol: Radiologic exam of the chest. Views: 1 view. COMPARISON: CR XR CHEST 1V 01/04/2022 6:50 AM FINDINGS: Tubes, catheters and devices: Dual lead pacemaker/ICD in place. Mitral valve prosthesis is stable. Lungs: Aeration hasimproved. Residual indistinct interstitial lines and perihilar opacities. Few bandlike opacities bilateral lungs. Pleural spaces: There is no pneumothorax. Residual blunting of the costophrenic angles.Heart/Mediastinum: Moderate prominence of the cardiac silhouette is stable. Bones/joints: Sternotomy wires are intact. IMPRESSION: 1. Improved aeration bilateral. Residual interstitial and perihilar opacities compatible with edema. Inflammation in the differential. 2. Residual subsegmental atelectasis. 3. Residual small volume pleural effusions. Electronically Signed by Cheng Carlisle on 01/09/2022 at 1048 Reported and signed by: Jasmeet Carlisle M.D. 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[facility] GLUCOSE [id number] 11:08:00 Test Item Value Reference Range Interpretation Comments GLUCOSE BEDSIDE (test 195 MG/DL 70-110 H Perfor med by certified code = GLUBED) 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[facility] BASIC METABOLIC [id number] 08:05:00 Test Item Value Reference Range Interpretation Comments SODIUM (test code = NA) 142 mEq/L 134-147 N POTASSIUM (test code = 3.0 mEq/L 3.4-5.0 L K) CHLORIDE (test code = 98 mEq/L 100-108 L CL) CARBON DIOXIDE (test 36 mEq/l 21-33 H code = CO2) ANION GAP (test code = 11 0-20 N GAP) GLUCOSE (test code = 106 mg/dL 70-110 N GLU) BLOOD UREA NITROGEN 23 mg/dL 7-18 H (test code = BUN) GLOMERULAR FILTRATION 48.0 70-80 L Units of measure = RATE (test code = GFR) ml/mi n/1.73 m2 CREATININE (test code = 1.1 mg/dL 0.6-1.3 N CREAT) CALCIUM (test code = 9.4 mg/dL 8.0-10.5 N CA) RENAL FUNCTION [id number] 08:05:00 Test Item Value Reference Range Interpretation Comments ALBUMIN (test code = ALB) 3.50 g/dL 3.4-5.0 N PHOSPHOROUS (test code = PHOS) 2.7 MG/DL 2.5-4.9 N [id number] 08:05:00 Test Item Value Reference Range Interpretation Comments MAGNESIUM (test code = MAG) 1.83 mg/dL 1.80-2.40 N CBC W/AUTO [id number] 08:04:00 Test Item Value Reference Range Interpretation Comments WHITE BLOOD CELL (test code = 5.6 x10 3/uL 4.5-11.0 N WBC) RED BLOOD CELL (test code = 2.55 x10 6/uL 3.54-5.02 L RBC) HEMOGLOBIN (test code = HGB) 8.7 g/dL 11.0-15.0 L HEMATOCRIT (test code = HCT) 28.4 % 33.0-45.0 L MEAN CELL VOLUME (test code = 111.4 fL 81.0-99.0 H MCV) MEAN CELL HGB (test code = MCH) 34.1 pg 27.0-33.0 H MEAN CELL HGB CONCETRATION 30.6 g/dL 33.0-37.0 L (test code = MCHC) RED CELL DISTRIBUTION WIDTH CV 19.1 % 11.5-14.5 H (test code = RDW) RED CELL DISTRIBUTION WIDTH SD 77.8 fL 37.0-54.0 H (test code = RDW-SD) PLATELET COUNT (test code = 221 x10 3/uL 150-400 N PLT) MEAN PLATELET VOLUME (test code 11.0 fL 7.0-9.0 H = MPV) NEUTROPHIL % (test code = NT%) 76.3 % 56.0-77.0 N IMMATURE GRANULOCYTE % (test 0.9 % 0.0-2.0 N code = IG%) LYMPHOCYTE % (test code = LY%) 8.3 % 14.0-32.0 L MONOCYTE % (test code = MO%) 11.5 % 4.8-9.0 H EOSINOPHIL % (test code = EO%) 2.3 % 0.3-3.7 N BASOPHIL % (test code = BA%) 0.7 % 0.0-2.0 N NUCLEATED RBC % (test code = 0.0 % 0-0 N NRBC%) NEUTROPHIL # (test code = NT#) 4.24 x10 3/uL 2.0-7.6 N IMMATURE GRANULOCYTE # (test 0.05 x10 3/uL 0.00-0.03 H code = IG#) LYMPHOCYTE # (test code = LY#) 0.46 x10 3/uL 1.0-3.8 L MONOCYTE # (test code = MO#) 0.64 x10 3/uL 0.1-0.8 N EOSINOPHIL # (test code = EO#) 0.13 x10 3/uL 0.0-0.2 N BASOPHIL # (test code = BA#) 0.04 x10 3/uL 0.0-0.2 N NUCLEATED RBC # (test code = 0.00 x10 3/uL 0.0-0.1 N NRBC#) MANUAL DIFF REQUIRED (test code NO = MDIFF) [id number] 07:14:00 Test Item Value Reference Range Interpretation Comments HGBA1C% (test code = HGBA1C%) 5.8 %A1C 4.8-6.0 N GLUCOSE [id number] 05:36:00 Test Item Value Reference Range Interpretation Comments GLUCOSE BEDSIDE (test 117 MG/DL 70-110 H Perfor med by certified code = GLUBED) 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[facility] GLUCOSE [id number] 05:36:00 Test Item Value Reference Range Interpretation Comments GLUCOSE BEDSIDE (test 168 MG/DL 70-110 H Perfor med by certified code = GLUBED) 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[facility] GLUCOSE [id number] 18:16:00 Test Item Value Reference Range Interpretation Comments GLUCOSE BEDSIDE (test 194 MG/DL 70-110 H Perfor med by certified code = GLUBED) 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[facility] GLUCOSE [id number] 12:29:00 Test Item Value Reference Range Interpretation Comments GLUCOSE BEDSIDE (test 176 MG/DL 70-110 H Perfor med by certified code = GLUBED) 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[facility] COVID 19 Asymptomatic IH [id number] 10:20:00 Test Item Value Reference Range Interpretation Comments COVID 19 Asymptomatic Negative Negative A nega tive result is IH AG (test code = presumpti ve and should COVNONPUIAG) be confirmedwit h an FDA authorized mole cular assay, if neces onur forpatient andrez gement.A positive result does not rule out co-inf ections withother patho gens.This test detects [place] th viable (live) and non-viable,SARS -CoV, and SARS-CoV-2. Ny t performance dep ends on theamount of vi carleen (antigen) in th e sample.This ny t has not been FDA cleare d or approved; the t est hasbeen authori zed by FDA under an Em ergency Use Authorizati on(EUA) for use by labo ratories certified under the CLIA thatmeet the requirements to perform moderate, high or waivedcomplexit y tests. 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[facility] BASIC METABOLIC [id number] 07:38:00 Test Item Value Reference Range Interpretation Comments SODIUM (test code = NA) 141 mEq/L 134-147 N POTASSIUM (test code = 3.5 mEq/L 3.4-5.0 N K) CHLORIDE (test code = 100 mEq/L 100-108 N CL) CARBON DIOXIDE (test 34 mEq/l 21-33 H code = CO2) ANION GAP (test code = 11 0-20 N GAP) GLUCOSE (test code = 90 mg/dL 70-110 N GLU) BLOOD UREA NITROGEN 23 mg/dL 7-18 H (test code = BUN) GLOMERULAR FILTRATION 60.6 70-80 L Units of measure = RATE (test code = GFR) ml/mi n/1.73 m2 CREATININE (test code = 0.9 mg/dL 0.6-1.3 N CREAT) CALCIUM (test code = 9.1 mg/dL 8.0-10.5 N CA) GLUCOSE [id number] 21:33:00 Test Item Value Reference Range Interpretation Comments GLUCOSE BEDSIDE (test 119 MG/DL 70-110 H Perfor med by certified code = GLUBED) 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[facility] GLUCOSE [id number] 18:12:00 Test Item Value Reference Range Interpretation Comments GLUCOSE BEDSIDE (test 170 MG/DL 70-110 H Perfor med by certified code = GLUBED) 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[facility] GLUCOSE [id number] 12:51:00 Test Item Value Reference Range Interpretation Comments GLUCOSE BEDSIDE (test 200 MG/DL 70-110 H Perfor med by certified code = GLUBED) 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[facility] GLUCOSE [id number] 08:19:00 Test Item Value Reference Range Interpretation Comments GLUCOSE BEDSIDE (test 105 MG/DL 70-110 N Perfor med by certified code = GLUBED) 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[facility] BASIC METABOLIC [id number] 04:05:00 Test Item Value Reference Range Interpretation Comments SODIUM (test code = NA) 143 mEq/L 134-147 N POTASSIUM (test code = 3.2 mEq/L 3.4-5.0 L K) CHLORIDE (test code = 101 mEq/L 100-108 N CL) CARBON DIOXIDE (test 36 mEq/l 21-33 H code = CO2) ANION GAP (test code = 9 0-20 N GAP) GLUCOSE (test code = 115 mg/dL 70-110 H GLU) BLOOD UREA NITROGEN 29 mg/dL 7-18 H (test code = BUN) GLOMERULAR FILTRATION 48.0 70-80 L Units of measure = RATE (test code = GFR) ml/mi n/1.73 m2 CREATININE (test code = 1.1 mg/dL 0.6-1.3 N CREAT) CALCIUM (test code = 9.4 mg/dL 8.0-10.5 N CA) [id number] 04:05:00 Test Item Value Reference Range Interpretation Comments MAGNESIUM (test code = MAG) 1.86 mg/dL 1.80-2.40 N CBC W/AUTO [id number] 03:38:00 Test Item Value Reference Range Interpretation Comments WHITE BLOOD CELL (test code = 5.7 x10 3/uL 4.5-11.0 N WBC) RED BLOOD CELL (test code = 2.29 x10 6/uL 3.54-5.02 L RBC) HEMOGLOBIN (test code = HGB) 8.1 g/dL 11.0-15.0 L HEMATOCRIT (test code = HCT) 25.6 % 33.0-45.0 L MEAN CELL VOLUME (test code = 111.8 fL 81.0-99.0 H MCV) MEAN CELL HGB (test code = MCH) 35.4 pg 27.0-33.0 H MEAN CELL HGB CONCETRATION 31.6 g/dL 33.0-37.0 L (test code = MCHC) RED CELL DISTRIBUTION WIDTH CV 18.7 % 11.5-14.5 H (test code = RDW) RED CELL DISTRIBUTION WIDTH SD 72.3 fL 37.0-54.0 H (test code = RDW-SD) PLATELET COUNT (test code = 244 x10 3/uL 150-400 N PLT) MEAN PLATELET VOLUME (test code 10.8 fL 7.0-9.0 H = MPV) NEUTROPHIL % (test code = NT%) 77.4 % 56.0-77.0 H IMMATURE GRANULOCYTE % (test 1.2 % 0.0-2.0 N code = IG%) LYMPHOCYTE % (test code = LY%) 7.8 % 14.0-32.0 L MONOCYTE % (test code = MO%) 11.7 % 4.8-9.0 H EOSINOPHIL % (test code = EO%) 1.6 % 0.3-3.7 N BASOPHIL % (test code = BA%) 0.3 % 0.0-2.0 N NUCLEATED RBC % (test code = 0.5 % 0-0 H NRBC%) NEUTROPHIL # (test code = NT#) 4.44 x10 3/uL 2.0-7.6 N IMMATURE GRANULOCYTE # (test 0.07 x10 3/uL 0.00-0.03 H code = IG#) LYMPHOCYTE # (test code = LY#) 0.45 x10 3/uL 1.0-3.8 L MONOCYTE # (test code = MO#) 0.67 x10 3/uL 0.1-0.8 N EOSINOPHIL # (test code = EO#) 0.09 x10 3/uL 0.0-0.2 N BASOPHIL # (test code = BA#) 0.02 x10 3/uL 0.0-0.2 N NUCLEATED RBC # (test code = 0.03 x10 3/uL 0.0-0.1 N NRBC#) MANUAL DIFF REQUIRED (test code NO = MDIFF) - DUP VEIN [id number] 00:00:[address] 1945 Sex: F Name: SAÚL GILES [facility] : 1945 Age/S: 76 / F [address] [place] [address] Unit #: [id number] Loc: [place] [address] Phys: Kena Macedo D[employer] ASSOCIATE MEDIA DIRECTOR Acct: [id number] Dis Date: Status: ADM IN PHONE #: [phone] Exam Date: 01/06/2022601 FAX #: [phone] Reason: R/O DVT EXAMS: CPT CODE: [id number] DUP VEIN RAJAN [id number] PROCEDURE INFORMATION: Exam: US Duplex Lower Extremity Veins, Bilateral Exam date and time: 01/06/2022 5:37 AM Age: 76 years old Clinical indication: Screening exam; S/P cabg; Additional info: R/O dvt TECHNIQUE: Imaging protocol: Real-time Duplex ultrasound of the bilateral extremities with 2-D jimenez scale, color Doppler flow and spectral waveform analysis with image do cumentation. Complete exam focused on the bilateral lower extremity veins. COMPARISON: US DUP VEIN RAJAN 12/17/2021 6:12 PM FINDINGS: Right deep veins: Unremarkable. The common femoral, femoral, proximalprofunda femoral and popliteal veins are patent without thrombus. Normal Doppler waveforms. Normal co mpressibility and/or augmentation response. Right superficial veins: Saphenofemoral junction is patent without thrombus. Left deep veins: Unremarkable. The common femoral, femoral, proximal profunda femoral and popliteal veins are patent without thrombus. Normal Doppler waveforms. Normal compressibility and/or augmentation response. Left superficial veins: Saphenofemoral junction is patent without thrombus. Soft tissues: Unremarkable. IMPRESSION: No evidence of deep vein thrombosis. at 626 Reported and signed by: Boo Clay M.D. 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[facility] GLUCOSE [id number] 17:16:00 Test Item Value Reference Range Interpretation Comments GLUCOSE BEDSIDE (test 140 MG/DL 70-110 H Perfor med by certified code = GLUBED) 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[facility] GLUCOSE [id number] 12:54:00 Test Item Value Reference Range Interpretation Comments GLUCOSE BEDSIDE (test 215 MG/DL 70-110 H Perfor med by certified code = GLUBED) 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[facility] GLUCOSE [id number] 10:11:00 Test Item Value Reference Range Interpretation Comments GLUCOSE BEDSIDE (test 104 MG/DL 70-110 N [facility] med by certified code = GLUBED) 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[facility] CBC W/AUTO [id number] 04:30:00 Test Item Value Reference Range Interpretation Comments WHITE BLOOD CELL (test code = 7.0 x10 3/uL 4.5-11.0 N WBC) RED BLOOD CELL (test code = 2.41 x10 6/uL 3.54-5.02 L RBC) HEMOGLOBIN (test code = HGB) 8.3 g/dL 11.0-15.0 L HEMATOCRIT (test code = HCT) 26.4 % 33.0-45.0 L MEAN CELL VOLUME (test code = 109.5 fL 81.0-99.0 H MCV) MEAN CELL HGB (test code = MCH) 34.4 pg 27.0-33.0 H MEAN CELL HGB CONCETRATION 31.4 g/dL 33.0-37.0 L (test code = MCHC) RED CELL DISTRIBUTION WIDTH CV 19.3 % 11.5-14.5 H (test code = RDW) RED CELL DISTRIBUTION WIDTH SD 73.8 fL 37.0-54.0 H (test code = RDW-SD) PLATELET COUNT (test code = 230 x10 3/uL 150-400 N PLT) MEAN PLATELET VOLUME (test code 11.2 fL 7.0-9.0 H = MPV) NEUTROPHIL % (test code = NT%) 79.9 % 56.0-77.0 H IMMATURE GRANULOCYTE % (test 1.4 % 0.0-2.0 N code = IG%) LYMPHOCYTE % (test code = LY%) 6.3 % 14.0-32.0 L MONOCYTE % (test code = MO%) 10.4 % 4.8-9.0 H EOSINOPHIL % (test code = EO%) 1.6 % 0.3-3.7 N BASOPHIL % (test code = BA%) 0.4 % 0.0-2.0 N NUCLEATED RBC % (test code = 0.7 % 0-0 H NRBC%) NEUTROPHIL # (test code = NT#) 5.62 x10 3/uL 2.0-7.6 N IMMATURE GRANULOCYTE # (test 0.10 x10 3/uL 0.00-0.03 H code = IG#) LYMPHOCYTE # (test code = LY#) 0.44 x10 3/uL 1.0-3.8 L MONOCYTE # (test code = MO#) 0.73 x10 3/uL 0.1-0.8 N EOSINOPHIL # (test code = EO#) 0.11 x10 3/uL 0.0-0.2 N BASOPHIL # (test code = BA#) 0.03 x10 3/uL 0.0-0.2 N NUCLEATED RBC # (test code = 0.05 x10 3/uL 0.0-0.1 N NRBC#) MANUAL DIFF REQUIRED (test code NO = MDIFF) BASIC METABOLIC [id number] 03:15:00 Test Item Value Reference Range Interpretation Comments SODIUM (test code = NA) 145 mEq/L 134-147 N POTASSIUM (test code = 3.3 mEq/L 3.4-5.0 L K) CHLORIDE (test code = 102 mEq/L 100-108 N CL) CARBON DIOXIDE (test 36 mEq/l 21-33 H code = CO2) ANION GAP (test code = 10 0-20 N GAP) GLUCOSE (test code = 94 mg/dL 70-110 N GLU) BLOOD UREA NITROGEN 26 mg/dL 7-18 H (test code = BUN) GLOMERULAR FILTRATION 53.6 70-80 L Units of measure = RATE (test code = GFR) ml/mi n/1.73 m2 CREATININE (test code = 1.0 mg/dL 0.6-1.3 N CREAT) CALCIUM (test code = 9.4 mg/dL 8.0-10.5 N CA) [id number] 03:15:00 Test Item Value Reference Range Interpretation Comments MAGNESIUM (test code = MAG) 1.91 mg/dL 1.80-2.40 N GLUCOSE [id number] 23:31:00 Test Item Value Reference Range Interpretation Comments GLUCOSE BEDSIDE (test 108 MG/DL 70-110 N Perfor med by certified code = GLUBED) 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[facility] GLUCOSE [id number] 23:31:00 Test Item Value Reference Range Interpretation Comments GLUCOSE BEDSIDE (test 259 MG/DL 70-110 H Perfor med by certified code = GLUBED) 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[facility] GLUCOSE [id number] 10:26:00 Test Item Value Reference Range Interpretation Comments GLUCOSE BEDSIDE (test 141 MG/DL 70-110 H Perfor med by certified code = GLUBED) 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[facility] GLUCOSE [id number] 07:59:00 Test Item Value Reference Range Interpretation Comments GLUCOSE BEDSIDE (test 87 MG/DL 70-110 N Perfor med by certified code = GLUBED) 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 [id number] 04:06:00 Test Item Value Reference Range Interpretation Comments SODIUM (test code = NA) 144 mEq/L 134-147 N POTASSIUM (test code = 3.5 mEq/L 3.4-5.0 N K) CHLORIDE (test code = 102 mEq/L 100-108 N CL) CARBON DIOXIDE (test 36 mEq/l 21-33 H code = CO2) ANION GAP (test code = 10 0-20 N GAP) GLUCOSE (test code = 103 mg/dL 70-110 N GLU) BLOOD UREA NITROGEN 26 mg/dL 7-18 H (test code = BUN) GLOMERULAR FILTRATION 60.6 70-80 L Units of measure = RATE (test code = GFR) ml/mi n/1.73 m2 CREATININE (test code = 0.9 mg/dL 0.6-1.3 N CREAT) CALCIUM (test code = 9.8 mg/dL 8.0-10.5 N CA) [id number] 04:06:00 Test Item Value Reference Range Interpretation Comments MAGNESIUM (test code = MAG) 2.02 mg/dL 1.80-2.40 N CBC W/AUTO [id number] 03:56:00 Test Item Value Reference Range Interpretation Comments WHITE BLOOD CELL (test code = 7.3 x10 3/uL 4.5-11.0 N WBC) RED BLOOD CELL (test code = 2.11 x10 6/uL 3.54-5.02 L RBC) HEMOGLOBIN (test code = HGB) 8.1 g/dL 11.0-15.0 L HEMATOCRIT (test code = HCT) 24.0 % 33.0-45.0 L MEAN CELL VOLUME (test code = 113.7 fL 81.0-99.0 H MCV) MEAN CELL HGB (test code = MCH) 38.4 pg 27.0-33.0 H MEAN CELL HGB CONCETRATION 33.8 g/dL 33.0-37.0 N (test code = MCHC) RED CELL DISTRIBUTION WIDTH CV 19.1 % 11.5-14.5 H (test code = RDW) RED CELL DISTRIBUTION WIDTH SD 69.7 fL 37.0-54.0 H (test code = RDW-SD) PLATELET COUNT (test code = 255 x10 3/uL 150-400 N PLT) MEAN PLATELET VOLUME (test code 10.6 fL 7.0-9.0 H = MPV) NEUTROPHIL % (test code = NT%) 80.2 % 56.0-77.0 H IMMATURE GRANULOCYTE % (test 1.5 % 0.0-2.0 N code = IG%) LYMPHOCYTE % (test code = LY%) 6.3 % 14.0-32.0 L MONOCYTE % (test code = MO%) 9.7 % 4.8-9.0 H EOSINOPHIL % (test code = EO%) 1.8 % 0.3-3.7 N BASOPHIL % (test code = BA%) 0.5 % 0.0-2.0 N NUCLEATED RBC % (test code = 0.4 % 0-0 H NRBC%) NEUTROPHIL # (test code = NT#) 5.86 x10 3/uL 2.0-7.6 N IMMATURE GRANULOCYTE # (test 0.11 x10 3/uL 0.00-0.03 H code = IG#) LYMPHOCYTE # (test code = LY#) 0.46 x10 3/uL 1.0-3.8 L MONOCYTE # (test code = MO#) 0.71 x10 3/uL 0.1-0.8 N EOSINOPHIL # (test code = EO#) 0.13 x10 3/uL 0.0-0.2 N BASOPHIL # (test code = BA#) 0.04 x10 3/uL 0.0-0.2 N NUCLEATED RBC # (test code = 0.03 x10 3/uL 0.0-0.1 N NRBC#) MANUAL DIFF REQUIRED (test code NO = MDIFF) - XR CHEST 1 [id number] 00:00:[address] 1945 Sex: F FAX:Jeffry Pennington MD [phone] [place]: St: ADM FAX: Abdiaziz Christiansen MD [phone] FAX: René Blancas [phone] FAX: Colt Aguillon MD [phone] Name: SAÚL GILES [facility] : 1945 Age/S: 76/F [address] [place] [address] Unit #: [id number] Loc: G.[address] [place] [address] Phys: René Villareal MD Acct: [id number] Dis Date: Status: ADM IN PHONE #: [phone] Exam Date: FAX #: [phone] Reason: R/O PLEURAL EFFUSION EXAMS: CPT CODE: [id number] XR CHEST 1 V [id number] PROCEDURE INFORMATION: Exam: XR Chest Exam date and time: 01/04/2022 6:50 AM Age: 76 years old Clinical indication: Other: R/O pleural effusion TECHNIQUE: Imaging protocol: Radiologic exam of the chest. Views: 1 view. COMPARISON: CR XR CHEST 1V 01/03/2022 6:43 AM FINDINGS: Tubes, catheters and devices: Stable pacemaker. Lungs: Mild worsening right basilar opacities. There could be a small right pleural effusion. The other lung opacities are stable. There could be a small left pleural effusion, stable. Pleural spaces: See "Lungs" finding. Heart/Mediastinum: Stable enlarged heart size. Vasculature: A therosclerotic calcifications. Bones/joints: Stable. Median sternotomy wires. IMPRESSION: Mild worsening right basilar opacities. Otherwise, stable exam. at 0812 Reported and signed by: Mark Anthony Willis M.D. 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[facility] GLUCOSE [id number] 16:49:00 Test Item Value Reference Range Interpretation Comments GLUCOSE BEDSIDE (test 180 MG/DL 70-110 H Perfor med by certified code = GLUBED) 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[facility] GLUCOSE [id number] 12:43:00 Test Item Value Reference Range Interpretation Comments GLUCOSE BEDSIDE (test 189 MG/DL 70-110 H Perfor med by certified code = GLUBED) 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[facility] GLUCOSE [id number] 07:40:00 Test Item Value Reference Range Interpretation Comments GLUCOSE BEDSIDE (test 96 MG/DL 70-110 N Perfor med by certified code = GLUBED) 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[facility] BASIC METABOLIC [id number] 05:21:00 Test Item Value Reference Range Interpretation Comments SODIUM (test code = NA) 144 mEq/L 134-147 N POTASSIUM (test code = 3.3 mEq/L 3.4-5.0 L K) CHLORIDE (test code = 102 mEq/L 100-108 N CL) CARBON DIOXIDE (test 37 mEq/l 21-33 H code = CO2) ANION GAP (test code = 9 0-20 N GAP) GLUCOSE (test code = 95 mg/dL 70-110 GLU) BLOOD UREA NITROGEN 25 mg/dL 7-18 H (test code = BUN) GLOMERULAR FILTRATION 53.6 70-80 L Units of measure = RATE (test code = GFR) ml/mi n/1.73 m2 CREATININE (test code = 1.0 mg/dL 0.6-1.3 N CREAT) CALCIUM (test code = 9.8 mg/dL 8.0-10.5 N CA) [id number] 05:21:00 Test Item Value Reference Range Interpretation Comments MAGNESIUM (test code = MAG) 2.20 mg/dL 1.80-2.40 N CBC W/AUTO [id number] 05:15:00 Test Item Value Reference Range Interpretation Comments WHITE BLOOD CELL (test code = 9.1 x10 3/uL 4.5-11.0 N WBC) RED BLOOD CELL (test code = 2.31 x10 6/uL 3.54-5.02 L RBC) HEMOGLOBIN (test code = HGB) 8.3 g/dL 11.0-15.0 L HEMATOCRIT (test code = HCT) 25.9 % 33.0-45.0 L MEAN CELL VOLUME (test code = 112.1 fL 81.0-99.0 H MCV) MEAN CELL HGB (test code = MCH) 35.9 pg 27.0-33.0 H MEAN CELL HGB CONCETRATION 32.0 g/dL 33.0-37.0 L (test code = MCHC) RED CELL DISTRIBUTION WIDTH CV 17.7 % 11.5-14.5 H (test code = RDW) RED CELL DISTRIBUTION WIDTH SD 70.2 fL 37.0-54.0 H (test code = RDW-SD) PLATELET COUNT (test code = 260 x10 3/uL 150-400 N PLT) MEAN PLATELET VOLUME (test code 10.5 fL 7.0-9.0 H = MPV) NEUTROPHIL % (test code = NT%) 81.4 % 56.0-77.0 H IMMATURE GRANULOCYTE % (test 1.4 % 0.0-2.0 N code = IG%) LYMPHOCYTE % (test code = LY%) 5.6 % 14.0-32.0 L MONOCYTE % (test code = MO%) 9.3 % 4.8-9.0 H EOSINOPHIL % (test code = EO%) 2.0 % 0.3-3.7 N BASOPHIL % (test code = BA%) 0.3 % 0.0-2.0 N NUCLEATED RBC % (test code = 0.8 % 0-0 H NRBC%) NEUTROPHIL # (test code = NT#) 7.41 x10 3/uL 2.0-7.6 N IMMATURE GRANULOCYTE # (test 0.13 x10 3/uL 0.00-0.03 H code = IG#) LYMPHOCYTE # (test code = LY#) 0.51 x10 3/uL 1.0-3.8 L MONOCYTE # (test code = MO#) 0.85 x10 3/uL 0.1-0.8 H EOSINOPHIL # (test code = EO#) 0.18 x10 3/uL 0.0-0.2 N BASOPHIL # (test code = BA#) 0.03 x10 3/uL 0.0-0.2 N NUCLEATED RBC # (test code = 0.07 x10 3/uL 0.0-0.1 N NRBC#) MANUAL DIFF REQUIRED (test code NO = MDIFF) - XR CHEST 1 [id number] 00:00:00 [facility] : 1945 Sex: F FAX:Jeffry Pennington MD [phone] [place]: St: ADM FAX: Abdiaziz Christiansen MD [phone] FAX: René Blancas [phone] FAX: Colt Aguillon MD [phone] Name: [facility] 1945 Age/S: 76/F [address] [place] [address] Unit #: [id number] Loc: [address] [address] Phys: René Villareal MD Acct: [id number] Dis Date: Status: ADM IN PHONE #: [phone] Exam Date: FAX #: [phone] Reason: R/O PLEURAL EFFUSION EXAMS: CPT CODE: [id number] XR CHEST 1 V [id number] INFORMATION: Exam: XR Chest Exam date and time: 01/03/2022 6:43 AM Age: 76 years old Clinical indication: Pain; Chest pressure; Additional info: R/O pleural effusion TECHNIQUE: Imaging protocol: Radiologic exam of the chest. Views: 1 view. COMPARISON: CR XR CHEST 1V 01/02/2022 5:49 AM FINDINGS: Tubes, catheters and devices: Implantable cardiac device with generator pack in the left chest wall and leads in place. Lungs: Unchanged appearance of the lungs with multifocal patchy bilateral airspace disease in the left lung base and right mid and lower lung. Pleural spaces: No pneumothorax. Unchanged small bilateral pleural effusions. Heart/Mediastinum: Prosthetic cardiac valve in place. Bones/joints: Median sternotomy changes. IMPRESSION: 1. Unchanged multifocal patchy bilateral airspace disease in the left lung base and right mid and lower lung. 2. Unchanged small bilateral pleural effusions. at 0839 Reported and signed by: Nicholas Dominguez M.D. 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[facility] GLUCOSE [id number] 17:13:00 Test Item Value Reference Range Interpretation Comments GLUCOSE BEDSIDE (test 164 MG/DL 70-110 H Perfor med by certified code = GLUBED) 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[facility] GLUCOSE [id number] 12:25:00 Test Item Value Reference Range Interpretation Comments GLUCOSE BEDSIDE (test 190 MG/DL 70-110 H Perfor med by certified code = GLUBED) 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[facility] GLUCOSE [id number] 09:11:00 Test Item Value Reference Range Interpretation Comments GLUCOSE BEDSIDE (test 207 MG/DL 70-110 H Perfor med by certified code = GLUBED) 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[facility] BASIC METABOLIC [id number] 04:53:00 Test Item Value Reference Range Interpretation Comments SODIUM (test code = NA) 143 mEq/L 134-147 N POTASSIUM (test code = 3.4 mEq/L 3.4-5.0 N K) CHLORIDE (test code = 100 mEq/L 100-108 N CL) CARBON DIOXIDE (test 37 mEq/l 21-33 H code = CO2) ANION GAP (test code = 9 0-20 N GAP) GLUCOSE (test code = 146 mg/dL 70-110 H GLU) BLOOD UREA NITROGEN 29 mg/dL 7-18 H (test code = BUN) GLOMERULAR FILTRATION 53.6 70-80 L Units of measure = RATE (test code = GFR) ml/mi n/1.73 m2 CREATININE (test code = 1.0 mg/dL 0.6-1.3 N CREAT) CALCIUM (test code = 9.8 mg/dL 8.0-10.5 N CA) [id number] 04:53:00 Test Item Value Reference Range Interpretation Comments MAGNESIUM (test code = MAG) 2.02 mg/dL 1.80-2.40 N CBC W/AUTO [id number] 04:33:00 Test Item Value Reference Range Interpretation Comments WHITE BLOOD CELL (test code = 9.1 x10 3/uL 4.5-11.0 N WBC) RED BLOOD CELL (test code = 2.32 x10 6/uL 3.54-5.02 L RBC) HEMOGLOBIN (test code = HGB) 8.1 g/dL 11.0-15.0 L HEMATOCRIT (test code = HCT) 25.6 % 33.0-45.0 L MEAN CELL VOLUME (test code = 110.3 fL 81.0-99.0 H MCV) MEAN CELL HGB (test code = MCH) 34.9 pg 27.0-33.0 H MEAN CELL HGB CONCETRATION 31.6 g/dL 33.0-37.0 L (test code = MCHC) RED CELL DISTRIBUTION WIDTH CV 17.3 % 11.5-14.5 H (test code = RDW) RED CELL DISTRIBUTION WIDTH SD 67.2 fL 37.0-54.0 H (test code = RDW-SD) PLATELET COUNT (test code = 272 x10 3/uL 150-400 N PLT) MEAN PLATELET VOLUME (test code 11.0 fL 7.0-9.0 H = MPV) NEUTROPHIL % (test code = NT%) 80.2 % 56.0-77.0 H IMMATURE GRANULOCYTE % (test 3.4 % 0.0-2.0 H code = IG%) LYMPHOCYTE % (test code = LY%) 5.1 % 14.0-32.0 L MONOCYTE % (test code = MO%) 9.4 % 4.8-9.0 H EOSINOPHIL % (test code = EO%) 1.5 % 0.3-3.7 N BASOPHIL % (test code = BA%) 0.4 % 0.0-2.0 N NUCLEATED RBC % (test code = 1.5 % 0-0 H NRBC%) NEUTROPHIL # (test code = NT#) 7.28 x10 3/uL 2.0-7.6 N IMMATURE GRANULOCYTE # (test 0.31 x10 3/uL 0.00-0.03 H code = IG#) LYMPHOCYTE # (test code = LY#) 0.46 x10 3/uL 1.0-3.8 L MONOCYTE # (test code = MO#) 0.85 x10 3/uL 0.1-0.8 H EOSINOPHIL # (test code = EO#) 0.14 x10 3/uL 0.0-0.2 N BASOPHIL # (test code = BA#) 0.04 x10 3/uL 0.0-0.2 N NUCLEATED RBC # (test code = 0.14 x10 3/uL 0.0-0.1 H NRBC#) MANUAL DIFF REQUIRED (test code NO = MDIFF) POC ARTERIAL BLOOD [id number] 04:18:00 Test Item Value Reference Range Interpretation Comments POC ARTERIAL BLOOD GAS PH (test 7.351 7.35-7.45 N code = POCPHA) POC ARTERIAL BLOOD GAS PCO2 (test 69.0 mmHg 35.0-45 HH code = [id number]) POC TCO2 ARTERIAL (test code = 40.5 POCTCO2) POC ARTERIAL BLOOD GAS PO2 (test 94.8 mmHg 80-100.0 N code = LVWZE9T) POC HCO3 ARTERIAL (test code = 38.4 MMOL/L 22.0-26.0 HH ZLLQGY1F) POC BASE EXCESS (test code = 12.7 MMOL/L -4.0-4.0 H POCBEA) POC O2 SATURATION (test code = 96.7 % 90-100 N POCO2S) ABG DELIVERY (test code = MAAME) Cannula ABG TEMPERATURE (test code = 98 F TEMPA) ABG SITE (test code = SITEA) Art Line MARTIN'S TEST (test code = ALLENS) N/A BASIC METABOLIC [id number] 04:18:00 Test Item Value Reference Range Interpretation Comments SODIUM (test code = NA/ABG) 143 MEQ/L 134-147 N POTASSIUM (test code = K/ABG) 3.3 MEQ/L 3.4-5.0 L CHLORIDE (test code = CL/ABG) 96 MEQ/L 100-108 L CREATININE ABG (test code = 1.2 mg/dL 0.6-1.0 H CREAABG) POC IONIZED CALCIUM (test code = 1.35 MMOL/L 1.12-1.32 H POCCA) POC GLUCOSE (test code = POCGLU) 157 MG/DL 70-110 H HEMOGLOBIN [id number] 04:18:00 Test Item Value Reference Range Interpretation Comments HEMOGLOBIN ABG (test code = HGB/ABG) 9.3 G/DL 11.0-15.0 L [id number] 04:18:00 Test Item Value Reference Range Interpretation Comments HEMATOCRIT (test code = HCT/ABG) 27 % 33.0-45.0 L POC LACTIC [id number] 04:18:00 Test Item Value Reference Range Interpretation Comments POC LACTIC ACID (test code = 0.6 mmol/l 0.9-1.7 L POCLAC) - XR CHEST 1 [id number] 00:00:[address] [facility] : 1945 Sex: F FAX:Jeffry Pennington MD [phone] [place]: St: ADM FAX: Abdiaziz Christiansen MD [phone] FAX: Solange Sawyer MD [phone] FAX: Colt Aguillon MD [phone] Name: SAÚL GILES [facility] [place] : 1945 Age/S: 76/F [address] [place] [address] Unit #: [id number] Loc: G.[address] [place] [address] Phys: Solange Mohamud MD Acct: [id number] Dis Date: Status: ADM IN PHONE #: [phone] Exam Date: 01/02/2022530 FAX #: [phone] Reason: POST-OP CV SURGERY EXAMS: CPT CODE: [id number] XR CHEST 1 V [id number] PROCEDUREINFORMATION: Exam: XR Chest Exam date and time: 01/02/2022 5:49 AM Age: 76 years old Clinical indication: Device placement; Cardiac defibrillator placementor adjustment; Additional info: Post-op cv surgery TECHNIQUE: Imaging protocol: Radiologic exam of the chest. Views: 1 view. COMPARISON: CR XR CHEST 1V 01/01/2022 5:09 AM FINDINGS: Tubes, catheters and devices: AICD device is present, and its leadsare in appropriate position. Lungs: Bilateral opacities throughout the lungs, right greater than left. There is also confluent opacity in the right lower lung. These are unchanged compared to prior study. Pleural spaces: Unchanged. No pneumothorax. Heart/Mediastinum: The cardiac silhouette is unchanged. Vasculature: Aortic calcifications. Bones/joints: Status post median sternotomy. Degenerative changes in the spine and right shoulder. IMPRESSION: No acute findings. Unchanged study. at 0801 Reported and signed by: Syeda Leblanc M.D. 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[facility] GLUCOSE [id number] 18:21:00 Test Item Value Reference Range Interpretation Comments GLUCOSE BEDSIDE (test 218 MG/DL 70-110 H Perfor med by certified code = GLUBED) 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[facility] POC ARTERIAL BLOOD [id number] 06:26:00 Test Item Value Reference Range Interpretation Comments POC ARTERIAL BLOOD GAS PH (test 7.380 7.35-7.45 N code = POCPHA) POC ARTERIAL BLOOD GAS PCO2 65.2 mmHg 35.0-45 HH (test code = PMQUUR0P) POC TCO2 ARTERIAL (test code = 40.8 POCTCO2) POC ARTERIAL BLOOD GAS PO2 (test 98.3 mmHg 80-100.0 N code = [id number]) POC HCO3 ARTERIAL (test code = 38.8 MMOL/L 22.0-26.0 HH [id number]) POC BASE EXCESS (test code = 13.5 MMOL/L -4.0-4.0 H POCBEA) POC O2 SATURATION (test code = 97.3 % 90-100 N POCO2S) FIO2 (test code = FIO2A) 40 % PaO2/FiO2 (test code = [id number]) 245.75 mm/Hg ABG DELIVERY (test code = MAAME) BiPAP ABG VENT RESP RATE (test code = 20 /MIN RRA) ABG TIDAL VOLUME (test code = 450 ml TVA) ABG PEEP (test code = PEEPA) 8 cmH2O ABG PRESSURE SUPPORT (test code 18 cmH2O = PSABG) ABG TEMPERATURE (test code = 97.7 F TEMPA) ABG SITE (test code = SITEA) Art Line MARTIN'S TEST (test code = N/A ALLENS) BASIC METABOLIC [id number] 06:26:00 Test Item Value Reference Range Interpretation Comments SODIUM (test code = NA/ABG) 143 MEQ/L 134-147 N POTASSIUM (test code = K/ABG) 3.4 MEQ/L 3.4-5.0 N CHLORIDE (test code = CL/ABG) 93 MEQ/L 100-108 L CREATININE ABG (test code = 1.2 mg/dL 0.6-1.0 H CREAABG) POC IONIZED CALCIUM (test code = 1.33 MMOL/L 1.12-1.32 H POCCA) POC GLUCOSE (test code = POCGLU) 90 MG/DL 70-110 N HEMOGLOBIN [id number] 06:26:00 Test Item Value Reference Range Interpretation Comments HEMOGLOBIN ABG (test code = HGB/ABG) 8.1 G/DL 11.0-15.0 L [id number] 06:26:00 Test Item Value Reference Range Interpretation Comments HEMATOCRIT (test code = HCT/ABG) 24 % 33.0-45.0 L POC LACTIC [id number] 06:26:00 Test Item Value Reference Range Interpretation Comments POC LACTIC ACID (test code = 0.4 mmol/l 0.9-1.7 L POCLAC) BASIC METABOLIC [id number] 04:01:00 Test Item Value Reference Range Interpretation Comments SODIUM (test code = NA) 141 mEq/L 134-147 N POTASSIUM (test code = 3.5 mEq/L 3.4-5.0 N K) CHLORIDE (test code = 102 mEq/L 100-108 N CL) CARBON DIOXIDE (test 37 mEq/l 21-33 H code = CO2) ANION GAP (test code = 6 0-20 N GAP) GLUCOSE (test code = 95 mg/dL 70-110 N GLU) BLOOD UREA NITROGEN 28 mg/dL 7-18 H (test code = BUN) GLOMERULAR FILTRATION 53.6 70-80 L Units of measure = RATE (test code = GFR) ml/mi n/1.73 m2 CREATININE (test code = 1.0 mg/dL 0.6-1.3 N CREAT) CALCIUM (test code = 9.5 mg/dL 8.0-10.5 N CA) [id number] 04:01:00 Test Item Value Reference Range Interpretation Comments MAGNESIUM (test code = MAG) 1.92 mg/dL 1.80-2.40 N CBC W/AUTO [id number] 03:40:00 Test Item Value Reference Range Interpretation Comments WHITE BLOOD CELL (test code = 9.4 x10 3/uL 4.5-11.0 N WBC) RED BLOOD CELL (test code = 2.11 x10 6/uL 3.54-5.02 L RBC) HEMOGLOBIN (test code = HGB) 7.5 g/dL 11.0-15.0 L HEMATOCRIT (test code = HCT) 23.2 % 33.0-45.0 L MEAN CELL VOLUME (test code = 110.0 fL 81.0-99.0 H MCV) MEAN CELL HGB (test code = MCH) 35.5 pg 27.0-33.0 H MEAN CELL HGB CONCETRATION 32.3 g/dL 33.0-37.0 L (test code = MCHC) RED CELL DISTRIBUTION WIDTH CV 16.9 % 11.5-14.5 H (test code = RDW) RED CELL DISTRIBUTION WIDTH SD 65.3 fL 37.0-54.0 H (test code = RDW-SD) PLATELET COUNT (test code = 245 x10 3/uL 150-400 N PLT) MEAN PLATELET VOLUME (test code 10.8 fL 7.0-9.0 H = MPV) NEUTROPHIL % (test code = NT%) 83.5 % 56.0-77.0 H IMMATURE GRANULOCYTE % (test 1.8 % 0.0-2.0 N code = IG%) LYMPHOCYTE % (test code = LY%) 6.1 % 14.0-32.0 L MONOCYTE % (test code = MO%) 7.0 % 4.8-9.0 N EOSINOPHIL % (test code = EO%) 1.4 % 0.3-3.7 N BASOPHIL % (test code = BA%) 0.2 % 0.0-2.0 N NUCLEATED RBC % (test code = 0.7 % 0-0 H NRBC%) NEUTROPHIL # (test code = NT#) 7.84 x10 3/uL 2.0-7.6 H IMMATURE GRANULOCYTE # (test 0.17 x10 3/uL 0.00-0.03 H code = IG#) LYMPHOCYTE # (test code = LY#) 0.57 x10 3/uL 1.0-3.8 L MONOCYTE # (test code = MO#) 0.66 x10 3/uL 0.1-0.8 N EOSINOPHIL # (test code = EO#) 0.13 x10 3/uL 0.0-0.2 N BASOPHIL # (test code = BA#) 0.02 x10 3/uL 0.0-0.2 N NUCLEATED RBC # (test code = 0.07 x10 3/uL 0.0-0.1 N NRBC#) MANUAL DIFF REQUIRED (test code NO = MDIFF) - XR CHEST 1 [id number] 00:00:[address] [facility] 1945 Sex: F FAX: Jeffry Pennington MD [phone] [place]: St: ADM FAX: Abdiaziz Christiansen MD [phone] FAX: Solange Sawyer MD [phone] FAX: Colt Aguillon MD [phone] Name: SAÚL GILES [facility] : 1945 Age/S: 76/F [address] [place] [address] Unit #: [id number] Loc: G.2205 [place] [address] Phys: Solange Mohamud MD Acct: [id number] Dis Date: Status: ADM IN PHONE #: [phone] Exam Date: 01/01/2022 06 FAX #: [phone] Reason: POST-OP CV SURGERY EXAMS: CPT CODE: [id number] XR CHEST 1 V [id number] PROCEDURE INFORMATION: Exam: XR Chest Exam date and time: 01/01/2022 5:09 AM Age: 76 years old Clinical indication: Other: Cardiac surgery post op; Additional info: Post-op cv surgery TECHNIQUE: Imaging protocol: Radiologic exam of the chest. Views: 1 view. COMPARISON: CR XR CHEST 1V 12/31/2021 5:29 AM FIND INGS: Tubes, catheters and devices: Pacemaker/ICD leads are stable. EKG leads overlie the chest. Mitral valve prosthesis is stable. Lungs: Bilateral hazy pulmonary opacities with ill-defined airspace opacities mid and lower lung zones. Bibasilar opacities obscuring the hemidiaphragms. Allowing for diff erences in technique and positioning, no significant change. Pleural spaces: There is no pneumothorax. Moderate volume layering pleural effusions grossly stable allowing for differences in positioning on semi upright exam. Heart/Mediastinum: Moderate prominence of the cardiomediastinal silhouette is st able. The pulmonary vasculature is obscured. Bones/joints: Sternotomy wires are intact. IMPRESSION: Stable exam. Bilateral pulmonary opacities likely combination of airspace disease and atelectasis. Bilateral pleural effusions. Stable postoperative cardiomediastinal silhouette. at 0702 Reported and signed by: Jasmeet Carlisle M.D. CC: Jeffry Hsu MD; Abdiaziz Fuchs MD; Solange Mohamud MD; Colt Vail MD Technologist: RT Joe(Marla) Trnscrd Date/Time/By: 01/01/2022 (701) : By: AureliaKWL Orig Print D/T: S: 01/01/2022(701) PAGE 1 Signed ReportPO ARTERIAL BLOOD [id number] 20:21:00 Test Item Value Reference Range Interpretation Comments POC ARTERIAL BLOOD GAS PH (test 7.396 7.35-7.45 N code = POCPHA) POC ARTERIAL BLOOD GAS PCO2 (test 59.8 mmHg 35.0-45 HH code = [id number]) POC TCO2 ARTERIAL (test code = 38.8 POCTCO2) POC ARTERIAL BLOOD GAS PO2 (test 75.7 mmHg 80-100.0 L code = LJOTH0Q) POC HCO3 ARTERIAL (test code = 36.9 MMOL/L 22.0-26.0 HH PDXSOM7N) POC BASE EXCESS (test code = 11.9 MMOL/L -4.0-4.0 H POCBEA) POC O2 SATURATION (test code = 94.9 % 90-100 N POCO2S) ABG DELIVERY (test code = MAAME) Cannula ABG TEMPERATURE (test code = 97.5 F TEMPA) ABG SITE (test code = SITEA) Art Line MARTIN'S TEST (test code = ALLENS) N/A BASIC METABOLIC [id number] 20:21:00 Test Item Value Reference Range Interpretation Comments SODIUM (test code = NA/ABG) 143 MEQ/L 134-147 N POTASSIUM (test code = K/ABG) 3.1 MEQ/L 3.4-5.0 L CHLORIDE (test code = CL/ABG) 96 MEQ/L 100-108 L CREATININE ABG (test code = 1.1 mg/dL 0.6-1.0 H CREAABG) POC IONIZED CALCIUM (test code = 1.33 MMOL/L 1.12-1.32 H POCCA) POC GLUCOSE (test code = POCGLU) 190 MG/DL 70-110 H HEMOGLOBIN [id number] 20:21:00 Test Item Value Reference Range Interpretation Comments HEMOGLOBIN ABG (test code = HGB/ABG) 8.7 G/DL 11.0-15.0 L [id number] 20:21:00 Test Item Value Reference Range Interpretation Comments HEMATOCRIT (test code = HCT/ABG) 26 % 33.0-45.0 L POC LACTIC [id number] 20:21:00 Test Item Value Reference Range Interpretation Comments POC LACTIC ACID (test code = 1.0 mmol/l 0.9-1.7 N POCLAC) POC ARTERIAL BLOOD [id number] 16:38:00 Test Item Value Reference Range Interpretation Comments POC ARTERIAL BLOOD GAS PH (test 7.402 7.35-7.45 N code = POCPHA) POC ARTERIAL BLOOD GAS PCO2 57.4 mmHg 35.0-45 HH (test code = MWZGEV4E) POC TCO2 ARTERIAL (test code = 37.7 POCTCO2) POC ARTERIAL BLOOD GAS PO2 (test 45.7 mmHg 80-100.0 LL code = ADURQ5X) POC HCO3 ARTERIAL (test code = 35.9 MMOL/L 22.0-26.0 HH [id number]) POC BASE EXCESS (test code = 11.0 MMOL/L -4.0-4.0 H POCBEA) POC O2 SATURATION (test code = 81.8 % 90-100 L POCO2S) FIO2 (test code = FIO2A) 32 % PaO2/FiO2 (test code = [id number]) 142.81 mm/Hg ABG TEMPERATURE (test code = 97.3 F TEMPA) ABG SITE (test code = SITEA) Art Line BASIC METABOLIC [id number] 16:38:00 Test Item Value Reference Range Interpretation Comments SODIUM (test code = NA/ABG) 142 MEQ/L 134-147 N POTASSIUM (test code = K/ABG) 3.5 MEQ/L 3.4-5.0 N CHLORIDE (test code = CL/ABG) 95 MEQ/L 100-108 L CREATININE ABG (test code = 0.9 mg/dL 0.6-1.0 N CREAABG) POC IONIZED CALCIUM (test code = 1.33 MMOL/L 1.12-1.32 H POCCA) POC GLUCOSE (test code = POCGLU) 313 MG/DL 70-110 H HEMOGLOBIN [id number] 16:38:00 Test Item Value Reference Range Interpretation Comments HEMOGLOBIN ABG (test code = HGB/ABG) 9.3 G/DL 11.0-15.0 L [id number] 16:38:00 Test Item Value Reference Range Interpretation Comments HEMATOCRIT (test code = HCT/ABG) 27 % 33.0-45.0 L POC LACTIC [id number] 16:38:00 Test Item Value Reference Range Interpretation Comments POC LACTIC ACID (test code = 1.0 mmol/l 0.9-1.7 N POCLAC) GLUCOSE [id number] 12:28:00 Test Item Value Reference Range Interpretation Comments GLUCOSE BEDSIDE (test 149 MG/DL 70-110 H Perfor med by certified code = GLUBED) 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[facility] CBC W/AUTO [id number] 11:32:00 Test Item Value Reference Range Interpretation Comments WHITE BLOOD CELL (test code = 7.9 x10 3/uL 4.5-11.0 N WBC) RED BLOOD CELL (test code = 2.36 x10 6/uL 3.54-5.02 L RBC) HEMOGLOBIN (test code = HGB) 8.9 g/dL 11.0-15.0 L HEMATOCRIT (test code = HCT) 26.0 % 33.0-45.0 L MEAN CELL VOLUME (test code = 110.2 fL 81.0-99.0 H MCV) MEAN CELL HGB (test code = MCH) 37.7 pg 27.0-33.0 H MEAN CELL HGB CONCETRATION 34.2 g/dL 33.0-37.0 N (test code = MCHC) RED CELL DISTRIBUTION WIDTH CV 16.8 % 11.5-14.5 H (test code = RDW) RED CELL DISTRIBUTION WIDTH SD 64.8 fL 37.0-54.0 H (test code = RDW-SD) PLATELET COUNT (test code = 220 x10 3/uL 150-400 N PLT) MEAN PLATELET VOLUME (test code 10.7 fL 7.0-9.0 H = MPV) NEUTROPHIL % (test code = NT%) 83.9 % 56.0-77.0 H IMMATURE GRANULOCYTE % (test 1.3 % 0.0-2.0 N code = IG%) LYMPHOCYTE % (test code = LY%) 4.5 % 14.0-32.0 L MONOCYTE % (test code = MO%) 8.5 % 4.8-9.0 N EOSINOPHIL % (test code = EO%) 1.5 % 0.3-3.7 N BASOPHIL % (test code = BA%) 0.3 % 0.0-2.0 N NUCLEATED RBC % (test code = 0.6 % 0-0 H NRBC%) NEUTROPHIL # (test code = NT#) 6.60 x10 3/uL 2.0-7.6 N IMMATURE GRANULOCYTE # (test 0.10 x10 3/uL 0.00-0.03 H code = IG#) LYMPHOCYTE # (test code = LY#) 0.35 x10 3/uL 1.0-3.8 L MONOCYTE # (test code = MO#) 0.67 x10 3/uL 0.1-0.8 N EOSINOPHIL # (test code = EO#) 0.12 x10 3/uL 0.0-0.2 N BASOPHIL # (test code = BA#) 0.02 x10 3/uL 0.0-0.2 N NUCLEATED RBC # (test code = 0.05 x10 3/uL 0.0-0.1 N NRBC#) MANUAL DIFF REQUIRED (test code NO = MDIFF) RBC [id number] 11:32:00 Test Item Value Reference Range Interpretation Comments ANISOCYTOSIS (test code = ANISO) 1+ POLYCHROMASIA (test code = POLC) 2+ HYPOCHROMIA (test code = HYPO) 1+ MACROCYTOSIS (test code = MACR) 1+ ROULEAUX (test code = ROU) 2+ POC ARTERIAL BLOOD [id number] 09:54:00 Test Item Value Reference Range Interpretation Comments POC ARTERIAL BLOOD GAS PH (test 7.445 7.35-7.45 N code = POCPHA) POC ARTERIAL BLOOD GAS PCO2 50.2 mmHg 35.0-45 HH (test code = CYCKEQ0W) POC TCO2 ARTERIAL (test code = 36.3 POCTCO2) POC ARTERIAL BLOOD GAS PO2 (test 41.6 mmHg 80-100.0 LL code = VMCHQ2T) POC HCO3 ARTERIAL (test code = 34.7 MMOL/L 22.0-26.0 HH [id number]) POC BASE EXCESS (test code = 10.5 MMOL/L -4.0-4.0 H POCBEA) POC O2 SATURATION (test code = 80.0 % 90-100 L POCO2S) FIO2 (test code = FIO2A) 24 % PaO2/FiO2 (test code = RPB2FZK2) 173.33 mm/Hg ABG TEMPERATURE (test code = 97.2 F TEMPA) ABG SITE (test code = SITEA) Art Line BASIC METABOLIC [id number] 09:54:00 Test Item Value Reference Range Interpretation Comments SODIUM (test code = NA/ABG) 143 MEQ/L 134-147 N POTASSIUM (test code = K/ABG) 3.5 MEQ/L 3.4-5.0 N CHLORIDE (test code = CL/ABG) 96 MEQ/L 100-108 L CREATININE ABG (test code = 0.8 mg/dL 0.6-1.0 N CREAABG) POC IONIZED CALCIUM (test code = 1.32 MMOL/L 1.12-1.32 N POCCA) POC GLUCOSE (test code = POCGLU) 175 MG/DL 70-110 H HEMOGLOBIN [id number] 09:54:00 Test Item Value Reference Range Interpretation Comments HEMOGLOBIN ABG (test code = HGB/ABG) 9.4 G/DL 11.0-15.0 L [id number] 09:54:00 Test Item Value Reference Range Interpretation Comments HEMATOCRIT (test code = HCT/ABG) 28 % 33.0-45.0 L POC LACTIC [id number] 09:54:00 Test Item Value Reference Range Interpretation Comments POC LACTIC ACID (test code = 0.8 mmol/l 0.9-1.7 L POCLAC) POC ARTERIAL BLOOD [id number] 08:57:00 Test Item Value Reference Range Interpretation Comments POC ARTERIAL BLOOD GAS PH (test 7.444 7.35-7.45 N code = POCPHA) POC ARTERIAL BLOOD GAS PCO2 (test 50.4 mmHg 35.0-45 HH code = MYJTXJ7G) POC TCO2 ARTERIAL (test code = 36.1 POCTCO2) POC ARTERIAL BLOOD GAS PO2 (test 33.9 mmHg 80-100.0 LL code = JAWSU6Y) POC HCO3 ARTERIAL (test code = 34.6 MMOL/L 22.0-26.0 HH [id number]) POC BASE EXCESS (test code = 10.5 MMOL/L -4.0-4.0 H POCBEA) POC O2 SATURATION (test code = 66.6 % 90-100 L POCO2S) ABG DELIVERY (test code = MAAME) Room Air BASIC METABOLIC [id number] 08:57:00 Test Item Value Reference Range Interpretation Comments SODIUM (test code = NA/ABG) 143 MEQ/L 134-147 N POTASSIUM (test code = K/ABG) 3.6 MEQ/L 3.4-5.0 N CHLORIDE (test code = CL/ABG) 97 MEQ/L 100-108 L CREATININE ABG (test code = 0.8 mg/dL 0.6-1.0 N CREAABG) POC IONIZED CALCIUM (test code = 1.34 MMOL/L 1.12-1.32 H POCCA) POC GLUCOSE (test code = POCGLU) 125 MG/DL 70-110 H HEMOGLOBIN [id number] 08:57:00 Test Item Value Reference Range Interpretation Comments HEMOGLOBIN ABG (test code = HGB/ABG) 9.4 G/DL 11.0-15.0 L [id number] 08:57:00 Test Item Value Reference Range Interpretation Comments HEMATOCRIT (test code = HCT/ABG) 28 % 33.0-45.0 L POC LACTIC [id number] 08:57:00 Test Item Value Reference Range Interpretation Comments POC LACTIC ACID (test code = 0.9 mmol/l 0.9-1.7 N POCLAC) GLUCOSE [id number] 08:05:00 Test Item Value Reference Range Interpretation Comments GLUCOSE BEDSIDE (test 82 MG/DL 70-110 N Perfor med by certified code = GLUBED) 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 [id number] 04:53:00 Test Item Value Reference Range Interpretation Comments SODIUM (test code = NA) 142 mEq/L 134-147 N POTASSIUM (test code = 3.5 mEq/L 3.4-5.0 N K) CHLORIDE (test code = 101 mEq/L 100-108 N CL) CARBON DIOXIDE (test 38 mEq/l 21-33 H code = CO2) ANION GAP (test code = 7 0-20 N GAP) GLUCOSE (test code = 85 mg/dL 70-110 GLU) BLOOD UREA NITROGEN 31 mg/dL 7-18 H (test code = BUN) GLOMERULAR FILTRATION 60.6 70-80 L Units of measure = RATE (test code = GFR) ml/mi n/1.73 m2 CREATININE (test code = 0.9 mg/dL 0.6-1.3 N CREAT) CALCIUM (test code = 9.8 mg/dL 8.0-10.5 N CA) [id number] 04:53:00 Test Item Value Reference Range Interpretation Comments MAGNESIUM (test code = MAG) 2.24 mg/dL 1.80-2.40 POC ARTERIAL BLOOD [id number] 04:37:00 Test Item Value Reference Range Interpretation Comments POC ARTERIAL BLOOD GAS PH (test 7.393 7.35-7.45 N code = POCPHA) POC ARTERIAL BLOOD GAS PCO2 (test 66.2 mmHg 35.0-45 HH code = ATKWSQ9S) POC TCO2 ARTERIAL (test code = 42.5 POCTCO2) POC ARTERIAL BLOOD GAS PO2 (test 93.0 mmHg 80-100.0 N code = QRBIW6A) POC HCO3 ARTERIAL (test code = 40.4 MMOL/L 22.0-26.0 HH LOKUKW4D) POC BASE EXCESS (test code = 15.5 MMOL/L -4.0-4.0 H POCBEA) POC O2 SATURATION (test code = 96.8 % 90-100 N POCO2S) ABG DELIVERY (test code = MAAME) Cannula ABG TEMPERATURE (test code = 98.2 F TEMPA) ABG SITE (test code = SITEA) Art Line BASIC METABOLIC [id number] 04:37:00 Test Item Value Reference Range Interpretation Comments SODIUM (test code = NA/ABG) 146 MEQ/L 134-147 N POTASSIUM (test code = K/ABG) 3.1 MEQ/L 3.4-5.0 L CHLORIDE (test code = CL/ABG) 96 MEQ/L 100-108 L CREATININE ABG (test code = 1.0 mg/dL 0.6-1.0 N CREAABG) POC IONIZED CALCIUM (test code = 1.41 MMOL/L 1.12-1.32 H POCCA) POC GLUCOSE (test code = POCGLU) 83 MG/DL 70-110 N HEMOGLOBIN [id number] 04:37:00 Test Item Value Reference Range Interpretation Comments HEMOGLOBIN ABG (test code = 15.1 G/DL 11.0-15.0 H HGB/ABG) [id number] 04:37:00 Test Item Value Reference Range Interpretation Comments HEMATOCRIT (test code = HCT/ABG) 44 % 33.0-45.0 N POC LACTIC [id number] 04:37:00 Test Item Value Reference Range Interpretation Comments POC LACTIC ACID (test code = 0.7 mmol/l 0.9-1.7 L POCLAC) - XR CHEST 1 [id number] 00:00:00 [facility] : 1945 Sex: F FAX:Jeffry Pennington MD [phone] [place]: St: ADM FAX: Abdiaziz Christiansen MD [phone] FAX: Solange Sawyer MD [phone] FAX: Colt Aguillon MD [phone] Name: SAÚL GILES [facility] : 1945 Age/S: 76/F [address] [place] [address] Unit #: [id number] Loc: G.2205 [place] [address] Phys: Solange Mohamud MD Acct: [id number] Dis Date: Status: ADM IN PHONE #: [phone] Exam Date: 12/31/2021628 FAX #: [phone] Reason: POST-OP CV SURGERY EXAMS: CPT CODE: [id number] XR CHEST 1 V [id number] PROCEDURE INFORMATION: Exam: XR Chest Exam date and time: 12/31/2021 5:29 AM Age: 76 years old Clinical indication: Other: Post-op cv surgery TECHNIQUE: Imaging protocol: Radiologic exam of the chest. Views: 1view. COMPARISON: 1. CT CHEST W/O CONTRAST 12/30/2021 1:10 PM 2. CR XR CHEST 1V 12/30/2021 4:58 AM FI NDINGS: Tubes, catheters and devices: Pacemaker/ICD leads are stable. EKG and epicardial pacer leadsoverlie the chest. Mitral valve prosthesis is stable. Lungs: Bilateral ill-defined pulmonary opacities with multifocal consolidation and or atelectasis redemonstrated. Bandlike opacity in the right midlung zone marginated by the minor fissure appears stable. Bibasilar opacities obscuring the hemidiaphragms are unchanged. Pleural spaces: There is no pneumothorax. Bilateral pleural effusions grossly stable allowing for differences in positioning on semi upright exam. Heart/Mediastinum: Mild prominence of the cardiomediastinal silhouette is stable. Bones/joints: Sternotomy wires are intact. IMPRESSION: 1. Stable pulmonary opacities with multifocal consolidation and or atelectasis. 2. Stable pleural effusions. 3. Stable postoperative cardiomediastinal silhouette. at 0707 Reported and signed by: Jasmeet Carlisle M.D. 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 [id number] 19:24:00 Test Item Value Reference Range Interpretation Comments SODIUM (test code = NA) 144 mEq/L 134-147 N POTASSIUM (test code = 3.5 mEq/L 3.4-5.0 N K) CHLORIDE (test code = 99 mEq/L 100-108 L CL) CARBON DIOXIDE (test 38 mEq/l 21-33 H code = CO2) ANION GAP (test code = 10 0-20 N GAP) GLUCOSE (test code = 204 mg/dL 70-110 H GLU) BLOOD UREA NITROGEN 38 mg/dL 7-18 H (test code = BUN) GLOMERULAR FILTRATION 53.6 70-80 L Units of measure = RATE (test code = GFR) ml/mi n/1.73 m2 CREATININE (test code = 1.0 mg/dL 0.6-1.3 N CREAT) CALCIUM (test code = 9.8 mg/dL 8.0-10.5 N CA) [id number] 19:24:00 Test Item Value Reference Range Interpretation Comments MAGNESIUM (test code = MAG) 1.84 mg/dL 1.80-2.40 GLUCOSE [id number] 17:33:00 Test Item Value Reference Range Interpretation Comments GLUCOSE BEDSIDE (test 213 MG/DL 70-110 H Perfor med by certified code = GLUBED) 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[facility] GLUCOSE [id number] 12:11:00 Test Item Value Reference Range Interpretation Comments GLUCOSE BEDSIDE (test 146 MG/DL 70-110 H Perfor med by certified code = GLUBED) 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[facility] POC ARTERIAL BLOOD [id number] 11:42:00 Test Item Value Reference Range Interpretation Comments POC ARTERIAL BLOOD GAS PH (test 7.373 7.35-7.45 N code = POCPHA) POC ARTERIAL BLOOD GAS PCO2 (test 60.9 mmHg 35.0-45 HH code = YZKIDM2V) POC TCO2 ARTERIAL (test code = 37.3 POCTCO2) POC ARTERIAL BLOOD GAS PO2 (test 57.7 mmHg 80-100.0 L code = NIOMN2D) POC HCO3 ARTERIAL (test code = 35.5 MMOL/L 22.0-26.0 HH EZQEDU0F) POC BASE EXCESS (test code = 10.2 MMOL/L -4.0-4.0 H POCBEA) POC O2 SATURATION (test code = 87.8 % 90-100 L POCO2S) ABG DELIVERY (test code = MAAME) HFNC ABG TEMPERATURE (test code = 98.6 F TEMPA) ABG SITE (test code = SITEA) L Radial MARTIN'S TEST (test code = ALLENS) N/A BASIC METABOLIC [id number] 11:42:00 Test Item Value Reference Range Interpretation Comments SODIUM (test code = NA/ABG) 145 MEQ/L 134-147 N POTASSIUM (test code = K/ABG) 3.1 MEQ/L 3.4-5.0 L CHLORIDE (test code = CL/ABG) 100 MEQ/L 100-108 N CREATININE ABG (test code = 1.0 mg/dL 0.6-1.0 CREAABG) POC IONIZED CALCIUM (test code = 1.31 MMOL/L 1.12-1.32 N POCCA) POC GLUCOSE (test code = POCGLU) 103 MG/DL 70-110 N HEMOGLOBIN [id number] 11:42:00 Test Item Value Reference Range Interpretation Comments HEMOGLOBIN ABG (test code = HGB/ABG) 8.3 G/DL 11.0-15.0 L [id number] 11:42:00 Test Item Value Reference Range Interpretation Comments HEMATOCRIT (test code = HCT/ABG) 24 % 33.0-45.0 L POC LACTIC [id number] 11:42:00 Test Item Value Reference Range Interpretation Comments POC LACTIC ACID (test code = 0.7 mmol/l 0.9-1.7 L POCLAC) BASIC METABOLIC [id number] 05:54:00 Test Item Value Reference Range Interpretation Comments SODIUM (test code = NA) 143 mEq/L 134-147 N POTASSIUM (test code = 3.3 mEq/L 3.4-5.0 L K) CHLORIDE (test code = 98 mEq/L 100-108 L CL) CARBON DIOXIDE (test 38 mEq/l 21-33 H code = CO2) ANION GAP (test code = 10 0-20 N GAP) GLUCOSE (test code = 110 mg/dL 70-110 GLU) BLOOD UREA NITROGEN 35 mg/dL 7-18 H (test code = BUN) GLOMERULAR FILTRATION 53.6 70-80 L Units of measure = RATE (test code = GFR) ml/mi n/1.73 m2 CREATININE (test code = 1.0 mg/dL 0.6-1.3 N CREAT) CALCIUM (test code = 9.9 mg/dL 8.0-10.5 N CA) [id number] 05:54:00 Test Item Value Reference Range Interpretation Comments MAGNESIUM (test code = MAG) 2.23 mg/dL 1.80-2.40 N CBC W/AUTO [id number] 05:01:00 Test Item Value Reference Range Interpretation Comments WHITE BLOOD CELL (test code = 8.8 x10 3/uL 4.5-11.0 N WBC) RED BLOOD CELL (test code = 1.86 x10 6/uL 3.54-5.02 L RBC) HEMOGLOBIN (test code = HGB) 7.4 g/dL 11.0-15.0 L HEMATOCRIT (test code = HCT) 21.6 % 33.0-45.0 L MEAN CELL VOLUME (test code = 116.1 fL 81.0-99.0 H MCV) MEAN CELL HGB (test code = MCH) 39.8 pg 27.0-33.0 H MEAN CELL HGB CONCETRATION 34.3 g/dL 33.0-37.0 N (test code = MCHC) RED CELL DISTRIBUTION WIDTH CV 19.2 % 11.5-14.5 H (test code = RDW) RED CELL DISTRIBUTION WIDTH SD 66.6 fL 37.0-54.0 H (test code = RDW-SD) PLATELET COUNT (test code = 204 x10 3/uL 150-400 N PLT) MEAN PLATELET VOLUME (test code 10.8 fL 7.0-9.0 H = MPV) NEUTROPHIL % (test code = NT%) 82.8 % 56.0-77.0 H IMMATURE GRANULOCYTE % (test 1.7 % 0.0-2.0 N code = IG%) LYMPHOCYTE % (test code = LY%) 4.9 % 14.0-32.0 L MONOCYTE % (test code = MO%) 8.6 % 4.8-9.0 N EOSINOPHIL % (test code = EO%) 1.8 % 0.3-3.7 N BASOPHIL % (test code = BA%) 0.2 % 0.0-2.0 N NUCLEATED RBC % (test code = 0.5 % 0-0 H NRBC%) NEUTROPHIL # (test code = NT#) 7.24 x10 3/uL 2.0-7.6 N IMMATURE GRANULOCYTE # (test 0.15 x10 3/uL 0.00-0.03 H code = IG#) LYMPHOCYTE # (test code = LY#) 0.43 x10 3/uL 1.0-3.8 L MONOCYTE # (test code = MO#) 0.75 x10 3/uL 0.1-0.8 N EOSINOPHIL # (test code = EO#) 0.16 x10 3/uL 0.0-0.2 N BASOPHIL # (test code = BA#) 0.02 x10 3/uL 0.0-0.2 N NUCLEATED RBC # (test code = 0.04 x10 3/uL 0.0-0.1 N NRBC#) MANUAL DIFF REQUIRED (test code NO = MDIFF) POC ARTERIAL BLOOD [id number] 04:58:00 Test Item Value Reference Range Interpretation Comments POC ARTERIAL BLOOD GAS PH (test 7.355 7.35-7.45 N code = POCPHA) POC ARTERIAL BLOOD GAS PCO2 68.7 mmHg 35.0-45 HH (test code = [id number]) POC TCO2 ARTERIAL (test code = 40.8 POCTCO2) POC ARTERIAL BLOOD GAS PO2 (test 61.3 mmHg 80-100.0 L code = ZNHYW2A) POC HCO3 ARTERIAL (test code = 38.7 MMOL/L 22.0-26.0 HH [id number]) POC BASE EXCESS (test code = 12.9 MMOL/L -4.0-4.0 H POCBEA) POC O2 SATURATION (test code = 89.8 % 90-100 L POCO2S) FIO2 (test code = FIO2A) 40 % PaO2/FiO2 (test code = [id number]) 153.25 mm/Hg ABG DELIVERY (test code = MAAME) BiPAP ABG VENT RESP RATE (test code = 20 /MIN RRA) ABG PEEP (test code = PEEPA) 8 cmH2O ABG TEMPERATURE (test code = 97.2 F TEMPA) ABG SITE (test code = SITEA) Art Line BASIC METABOLIC [id number] 04:58:00 Test Item Value Reference Range Interpretation Comments SODIUM (test code = NA/ABG) 142 MEQ/L 134-147 N POTASSIUM (test code = K/ABG) 3.1 MEQ/L 3.4-5.0 L CHLORIDE (test code = CL/ABG) 94 MEQ/L 100-108 L CREATININE ABG (test code = 1.3 mg/dL 0.6-1.0 H CREAABG) POC IONIZED CALCIUM (test code = 1.34 MMOL/L 1.12-1.32 H POCCA) POC GLUCOSE (test code = POCGLU) 112 MG/DL 70-110 H HEMOGLOBIN [id number] 04:58:00 Test Item Value Reference Range Interpretation Comments HEMOGLOBIN ABG (test code = HGB/ABG) 7.6 G/DL 11.0-15.0 L [id number] 04:58:00 Test Item Value Reference Range Interpretation Comments HEMATOCRIT (test code = HCT/ABG) 22 % 33.0-45.0 L POC LACTIC [id number] 04:58:00 Test Item Value Reference Range Interpretation Comments POC LACTIC ACID (test code = 0.5 mmol/l 0.9-1.7 L POCLAC) - CT CHEST W/O [id number] 00:00:[address] 1945 Sex: F Name: SAÚL GILES [facility] : 1945 Age/S: 76 / F [address] [place] [address] Unit #: [id number] Loc: [place] [address] Phys: Kena Macedo DIGITAL ASSOCIATE MEDIA DIRECTOR Acct: [id number] Dis Date: Status: ADM INPHONE #: [phone] Exam Date: 12/30/2021 1316 FAX #: [phone] Reason: EVAL WORSENING PULM OPPACITIES EXAMS: CPT CODE: [id number] CT CHEST W/O CONTRAST 25126 PROCEDURE INFORMATION: Exam: CT ChestWithout Contrast; Diagnostic Exam date and time: 12/30/2021 1:10 PM Age: 76 years old Clinical indication: Other: Eval worsening pulm oppacities; Signs and symptoms not specified. TECHNIQUE: Imaging protocol: Diagnostic computed tomography of the chest without contrast. Radiation optimization: All CT scans at this facility use at least one of these dose optimization techniques: automated exposure control; mA and/or kV adjustment per patient size (includes targeted exams where dose is matched to clinical indication); or iterative reconstruction. COMPARISON: 1. CT CHEST W/O CONTRAST 12/17/2021 5:33 PM 2. CR XR CHEST 1V 12/30/2021 4:58 AM FINDINGS: Limitations: Artifact from the patient's upper extremities. Assessment of the viscera and vasculature may be limited by the lack of intravenous contrast. Lungs: There is partial atelectasis of the lower lobes. There are multifocal ill-defined ground-glassopacities involving aerated portions of the lungs bilateral. Areas of interstitial septal thickeningassociated with ground-glass opacities with scattered small areas of consolidation and or atelectasis. There is no cavitation. The central airways are patent. Pleural spaces: There are small bilateral pleural effusions. Pleural fluid tracking into the major fissures bilateral. There is no pneumothorax. Heart: The heart is moderately enlarged. There are severe coronary arterial calcifications. 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 Dual chamber pacemaker/ICD leads in place. Trace pericardial fluid. Mediastinal space: There are postoperative changes in the anterior mediastinum with small volume fluid collection in the retrosternal space 1.2 cm thickness mildlyhyperattenuating at 28 Hounsfield units. Lymph nodes: Unremarkable. No enlarged lymph nodes. Vasculature: Unremarkable. No aortic aneurysm. Bones/joints: Median sternotomy is well approximated. No bone destructive changes. Soft tissues: Midline skin incision is well approximated. No chest wall fluid collection. IMPRESSION: PAGE 1 Signed Report (CONTINUED) Name: SAÚL GILES [facility] : 1945 Age/S: 76 / F [address] [place] [address] Unit #: [id number] Loc: [place] [address] Phys: Kena Arboleda DIGITAL ASSOCIATE MEDIA DIRECTOR Acct: [id number] Dis Date: Status: ADM IN PHONE #: [phone] Exam Date: 12/30/2021 1316 FAX #: [phone] Reason: EVAL WORSENING PULM OPPACITIES EXAMS: CPT CODE: [id number] CT CHEST W/O CONTRAST 31433 (Continued) 1. Bilateral multifocal ground-glass pulmonary opacities with assoc iated interstitial septal thickening. Edema and inflammation in the differential. Imaging features can be seen with COVID-19 pneumonia, though are nonspecific and can occur with a variety of infectious and noninfectious processes. (Reference: Michael) 2. Partial atelectasis of the lower lobes with additional foci of subsegmental atelectasis and or consolidation. 3. Small bilateral pleural effusions. 4. Postoperative changes of CABG. Stable cardiomegaly. Trace pericardial fluid. Small volume anterior mediastinal hematoma/seroma. REFERENCES: Michael Gutierrez, et al., Radiological Society of [place] Expert Consensus Statement on Reporting Chest CT Findings Related to COVID-19. Endorsed by the Society of Thoracic Radiology, the [place] [employer], and RSNA. Published June 07, 2019. at 1433 Reported and signed by: Jasmeet Carlisle M.D. CC: Jeffry Hsu MD; Abdiaziz Fuchs MD; Kena Macedo NP; Colt Vail MD Technologist:Ming Chapman, RT(R)(CT) CTDI: DLP: Trnscb Date/Time: 12/30/2021 (1432) [email or web address] Orig Print D/T: S: 12/30/2021 (1433) PAGE 2 Signed Report- XR CHEST 1 [id number] 00:00:00 [facility] : 1945 Sex: F FAX:Jeffry Pennington MD [phone] [place]: St: ADM FAX: Abdiaziz Christiansen MD [phone] FAX: Solange Sawyer MD [phone] FAX: Colt Aguillon MD [phone] Name: SAÚL GILES [facility] James [facility] : 1945 Age/S: 76/F [address] [place] [address] Unit #: [id number] Loc: G.[address] [place] [address] Phys: Solange Mohamud MD Acct: [id number] Dis Date: Status: ADM IN PHONE #: [phone] Exam Date: 12/30/2021611 FAX #: [phone] Reason: POST-OP CV SURGERY EXAMS: CPT CODE: [id number] XR CHEST 1 V 36055 PROCEDURE INFORMATION: Exam: XR Chest Exam date and time: 12/30/2021 4:58 AM Age: 76 years old Clinical indication: Other: Post-op cv surgery TECHNIQUE: Imaging protocol: Radiologic exam of the chest. Views: 1view. COMPARISON: 1. CR XR CHEST 1V 12/29/2021 5:18 AM 2. CR XR CHEST 1V 12/28/2021 5:57 AM 3. CR XR CHEST 1V 12/27/2021 5:54 AM FINDINGS: Tubes, catheters and devices: Pacemaker/ICD leads are stable. Mitral valve prosthesis is stable. EKG and epicardial pacer leads overlie the chest. Lungs: There areill-defined pulmonary opacities bilateral with multifocal consolidation. Increased opacity in the rig ht upper lobe marginated caudally by the minor fissure. Bibasilar opacities obscuring the hemidiaphragms grossly stable otherwise. Pleural spaces: There is no pneumothorax. Bilateral pleural effusions are grossly stable allowing for differences in positioning on semi upright exam. Heart/Mediastinum: Moderate prominence of the cardiomediastinal silhouette is grossly stable allowing for patient rotation. Pulmonary vasculature is predominantly obscured. Bones/joints: Sternotomy wires are intact. IMPRESSION: 1. Bilateral pulmonary opacities with multifocal airspace disease. Progression of disease in the right upper lobe. Edema and pneumonia in the differential. 2. Stable pleural effusions with bibasilar atelectasis and or airspace disease. at 705 Reported and signed by: Jasmeet Carlisle M.D. PAGE 1 Signed Report (CONTINUED) FAX: Jeffry Pennington MD [phone] [place]: St: ADM FAX: Abdiaziz Christiansen MD [phone] FAX: Solange Suarez MD [phone] FAX: Colt Aguillon MD [phone] Name: SAÚL GILES [facility] : 1945 Age/S: 76/F [address] [place] [address] Unit #: [id number] Loc: G.[address] [place] [address] Phys: Solange Mohamud MD Acct: [id number] Dis Date: Status: ADM IN PHONE #: [phone] Exam Date: 12/30/2021611 FAX #: [phone] Reason: POST-OP CV SURGERY EXAMS: CPT CODE: [id number] XR CHEST 1 V 15718 (Continued) CC: Jeffry Hsu MD; Abdiaziz Fuchs MD; Solange Mohamud MD; Colt Vail MD Technologist: Hali Leon, RT(R) Trnscrd Date/Time/By: 12/30/2021 (705) : By: Catherine Orig Print D/T: S: 12/30/2021 (705) PAGE 2 Signed ReportGLUCOSE [id number] 20:24:00 Test Item Value Reference Range Interpretation Comments GLUCOSE BEDSIDE (test 185 MG/DL 70-110 H Perfor med by certified code = GLUBED) 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[facility] GLUCOSE [id number] 18:05:00 Test Item Value Reference Range Interpretation Comments GLUCOSE BEDSIDE (test 197 MG/DL 70-110 H Perfor med by certified code = GLUBED) 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[facility] BASIC METABOLIC [id number] 12:52:00 Test Item Value Reference Range Interpretation Comments SODIUM (test code = NA) 142 mEq/L 134-147 N POTASSIUM (test code = 3.6 mEq/L 3.4-5.0 N K) CHLORIDE (test code = 100 mEq/L 100-108 N CL) CARBON DIOXIDE (test 38 mEq/l 21-33 H code = CO2) ANION GAP (test code = 7 0-20 N GAP) GLUCOSE (test code = 249 mg/dL 70-110 H GLU) BLOOD UREA NITROGEN 38 mg/dL 7-18 H (test code = BUN) GLOMERULAR FILTRATION 48.0 70-80 L Units of measure = RATE (test code = GFR) ml/mi n/1.73 m2 CREATININE (test code = 1.1 mg/dL 0.6-1.3 N CREAT) CALCIUM (test code = 9.5 mg/dL 8.0-10.5 N CA) [id number] 12:52:00 Test Item Value Reference Range Interpretation Comments MAGNESIUM (test code = MAG) 2.38 mg/dL 1.80-2.40 N GLUCOSE [id number] 12:29:00 Test Item Value Reference Range Interpretation Comments GLUCOSE BEDSIDE (test 236 MG/DL 70-110 H Perfor med by certified code = GLUBED) 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[facility] GLUCOSE [id number] 08:29:00 Test Item Value Reference Range Interpretation Comments GLUCOSE BEDSIDE (test 150 MG/DL 70-110 H Perfor med by certified code = GLUBED) 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[facility] GLUCOSE [id number] 05:47:00 Test Item Value Reference Range Interpretation Comments GLUCOSE BEDSIDE (test 126 MG/DL 70-110 H Perfor med by certified code = GLUBED) 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[facility] POC ARTERIAL BLOOD [id number] 05:42:00 Test Item Value Reference Range Interpretation Comments POC ARTERIAL BLOOD GAS PH (test 7.357 7.35-7.45 N code = POCPHA) POC ARTERIAL BLOOD GAS PCO2 71.1 mmHg 35.0-45 HH (test code = [id number]) POC TCO2 ARTERIAL (test code = 42.4 POCTCO2) POC ARTERIAL BLOOD GAS PO2 (test 83.8 mmHg 80-100.0 N code = UIPZN8W) POC HCO3 ARTERIAL (test code = 40.1 MMOL/L 22.0-26.0 HH [id number]) POC BASE EXCESS (test code = 14.5 MMOL/L -4.0-4.0 H POCBEA) POC O2 SATURATION (test code = 95.5 % 90-100 N POCO2S) FIO2 (test code = FIO2A) 40 % PaO2/FiO2 (test code = [id number]) 209.50 mm/Hg ABG DELIVERY (test code = MAAME) BiPAP ABG TEMPERATURE (test code = 97.5 F TEMPA) ABG SITE (test code = SITEA) Art Line BASIC METABOLIC [id number] 05:42:00 Test Item Value Reference Range Interpretation Comments SODIUM (test code = NA/ABG) 144 MEQ/L 134-147 N POTASSIUM (test code = K/ABG) 3.9 MEQ/L 3.4-5.0 N CHLORIDE (test code = CL/ABG) 101 MEQ/L 100-108 N CREATININE ABG (test code = 1.1 mg/dL 0.6-1.0 H CREAABG) POC IONIZED CALCIUM (test code = 1.34 MMOL/L 1.12-1.32 H POCCA) POC GLUCOSE (test code = POCGLU) 122 MG/DL 70-110 H HEMOGLOBIN [id number] 05:42:00 Test Item Value Reference Range Interpretation Comments HEMOGLOBIN ABG (test code = HGB/ABG) 7.8 G/DL 11.0-15.0 L [id number] 05:42:00 Test Item Value Reference Range Interpretation Comments HEMATOCRIT (test code = HCT/ABG) 23 % 33.0-45.0 L POC LACTIC [id number] 05:42:00 Test Item Value Reference Range Interpretation Comments POC LACTIC ACID (test code = 0.5 mmol/l 0.9-1.7 L POCLAC) [id number] 04:44:00 Test Item Value Reference Range Interpretation Comments MAGNESIUM (test code = MAG) 2.29 mg/dL 1.80-2.40 N BASIC METABOLIC [id number] 04:22:00 Test Item Value Reference Range Interpretation Comments SODIUM (test code = NA) 144 mEq/L 134-147 N POTASSIUM (test code = 4.1 mEq/L 3.4-5.0 N K) CHLORIDE (test code = 103 mEq/L 100-108 N CL) CARBON DIOXIDE (test 38 mEq/l 21-33 H code = CO2) ANION GAP (test code = 7 0-20 N GAP) GLUCOSE (test code = 143 mg/dL 70-110 H GLU) BLOOD UREA NITROGEN 40 mg/dL 7-18 H (test code = BUN) GLOMERULAR FILTRATION 53.6 70-80 L Units of measure = RATE (test code = GFR) ml/mi n/1.73 m2 CREATININE (test code = 1.0 mg/dL 0.6-1.3 N CREAT) CALCIUM (test code = 9.5 mg/dL 8.0-10.5 N CA) CBC W/AUTO [id number] 04:12:00 Test Item Value Reference Range Interpretation Comments WHITE BLOOD CELL (test code = 9.0 x10 3/uL 4.5-11.0 N WBC) RED BLOOD CELL (test code = 2.15 x10 6/uL 3.54-5.02 L RBC) HEMOGLOBIN (test code = HGB) 7.4 g/dL 11.0-15.0 L HEMATOCRIT (test code = HCT) 23.9 % 33.0-45.0 L MEAN CELL VOLUME (test code = 111.2 fL 81.0-99.0 H MCV) MEAN CELL HGB (test code = MCH) 34.4 pg 27.0-33.0 H MEAN CELL HGB CONCETRATION 31.0 g/dL 33.0-37.0 L (test code = MCHC) RED CELL DISTRIBUTION WIDTH CV 16.5 % 11.5-14.5 H (test code = RDW) RED CELL DISTRIBUTION WIDTH SD 66.4 fL 37.0-54.0 H (test code = RDW-SD) PLATELET COUNT (test code = 205 x10 3/uL 150-400 N PLT) MEAN PLATELET VOLUME (test code 11.1 fL 7.0-9.0 H = MPV) NEUTROPHIL % (test code = NT%) 83.4 % 56.0-77.0 H IMMATURE GRANULOCYTE % (test 1.8 % 0.0-2.0 N code = IG%) LYMPHOCYTE % (test code = LY%) 4.5 % 14.0-32.0 L MONOCYTE % (test code = MO%) 8.8 % 4.8-9.0 N EOSINOPHIL % (test code = EO%) 1.4 % 0.3-3.7 N BASOPHIL % (test code = BA%) 0.1 % 0.0-2.0 N NUCLEATED RBC % (test code = 0.7 % 0-0 H NRBC%) NEUTROPHIL # (test code = NT#) 7.48 x10 3/uL 2.0-7.6 N IMMATURE GRANULOCYTE # (test 0.16 x10 3/uL 0.00-0.03 H code = IG#) LYMPHOCYTE # (test code = LY#) 0.40 x10 3/uL 1.0-3.8 L MONOCYTE # (test code = MO#) 0.79 x10 3/uL 0.1-0.8 N EOSINOPHIL # (test code = EO#) 0.13 x10 3/uL 0.0-0.2 N BASOPHIL # (test code = BA#) 0.01 x10 3/uL 0.0-0.2 N NUCLEATED RBC # (test code = 0.06 x10 3/uL 0.0-0.1 N NRBC#) MANUAL DIFF REQUIRED (test code NO = MDIFF) GLUCOSE [id number] 03:12:00 Test Item Value Reference Range Interpretation Comments GLUCOSE BEDSIDE (test 124 MG/DL 70-110 H Perfor med by certified code = GLUBED) 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[facility] POC ARTERIAL BLOOD [id number] 03:03:00 Test Item Value Reference Range Interpretation Comments POC ARTERIAL BLOOD GAS PH (test 7.367 7.35-7.45 N code = POCPHA) POC ARTERIAL BLOOD GAS PCO2 73.2 mmHg 35.0-45 HH (test code = [id number]) POC TCO2 ARTERIAL (test code = 44.7 POCTCO2) POC ARTERIAL BLOOD GAS PO2 (test 84.4 mmHg 80-100.0 N code = SXKPV7P) POC HCO3 ARTERIAL (test code = 42.4 MMOL/L 22.0-26.0 HH EBHCUQ9Q) POC BASE EXCESS (test code = 16.9 MMOL/L -4.0-4.0 H POCBEA) POC O2 SATURATION (test code = 95.7 % 90-100 N POCO2S) FIO2 (test code = FIO2A) 40 % PaO2/FiO2 (test code = KNG4VPC1) 211.00 mm/Hg ABG DELIVERY (test code = MAAME) BiPAP ABG TEMPERATURE (test code = 97.5 F TEMPA) ABG SITE (test code = SITEA) Art Line BASIC METABOLIC [id number] 03:03:00 Test Item Value Reference Range Interpretation Comments SODIUM (test code = NA/ABG) 143 MEQ/L 134-147 N POTASSIUM (test code = K/ABG) 4.0 MEQ/L 3.4-5.0 N CHLORIDE (test code = CL/ABG) 99 MEQ/L 100-108 L CREATININE ABG (test code = 1.2 mg/dL 0.6-1.0 H CREAABG) POC IONIZED CALCIUM (test code = 1.34 MMOL/L 1.12-1.32 H POCCA) POC GLUCOSE (test code = POCGLU) 125 MG/DL 70-110 H HEMOGLOBIN [id number] 03:03:00 Test Item Value Reference Range Interpretation Comments HEMOGLOBIN ABG (test code = HGB/ABG) 8.2 G/DL 11.0-15.0 L [id number] 03:03:00 Test Item Value Reference Range Interpretation Comments HEMATOCRIT (test code = HCT/ABG) 24 % 33.0-45.0 L POC LACTIC [id number] 03:03:00 Test Item Value Reference Range Interpretation Comments POC LACTIC ACID (test code = 0.5 mmol/l 0.9-1.7 L POCLAC) POC ARTERIAL BLOOD [id number] 02:09:00 Test Item Value Reference Range Interpretation Comments POC ARTERIAL BLOOD GAS PH (test 7.327 7.35-7.45 L code = POCPHA) POC ARTERIAL BLOOD GAS PCO2 80.5 mmHg 35.0-45 HH (test code = QJJGWT1E) POC TCO2 ARTERIAL (test code = 45.0 POCTCO2) POC ARTERIAL BLOOD GAS PO2 (test 73.3 mmHg 80-100.0 L code = DGVFE8O) POC HCO3 ARTERIAL (test code = 42.4 MMOL/L 22.0-26.0 HH HQGNCC7T) POC BASE EXCESS (test code = 16.3 MMOL/L -4.0-4.0 H POCBEA) POC O2 SATURATION (test code = 92.8 % 90-100 N POCO2S) FIO2 (test code = FIO2A) 40 % PaO2/FiO2 (test code = ITZ5PFW7) 183.25 mm/Hg ABG DELIVERY (test code = MAAME) BiPAP ABG TEMPERATURE (test code = 97.5 F TEMPA) ABG SITE (test code = SITEA) Art Line BASIC METABOLIC [id number] 02:09:00 Test Item Value Reference Range Interpretation Comments SODIUM (test code = NA/ABG) 144 MEQ/L 134-147 N POTASSIUM (test code = K/ABG) 4.0 MEQ/L 3.4-5.0 N CHLORIDE (test code = CL/ABG) 99 MEQ/L 100-108 L CREATININE ABG (test code = 1.1 mg/dL 0.6-1.0 H CREAABG) POC IONIZED CALCIUM (test code = 1.35 MMOL/L 1.12-1.32 H POCCA) POC GLUCOSE (test code = POCGLU) 106 MG/DL 70-110 N HEMOGLOBIN [id number] 02:09:00 Test Item Value Reference Range Interpretation Comments HEMOGLOBIN ABG (test code = HGB/ABG) 7.9 G/DL 11.0-15.0 L [id number] 02:09:00 Test Item Value Reference Range Interpretation Comments HEMATOCRIT (test code = HCT/ABG) 23 % 33.0-45.0 L POC LACTIC [id number] 02:09:00 Test Item Value Reference Range Interpretation Comments POC LACTIC ACID (test code = 0.5 mmol/l 0.9-1.7 L POCLAC) POC ARTERIAL BLOOD [id number] 01:21:00 Test Item Value Reference Range Interpretation Comments POC ARTERIAL BLOOD GAS PH (test 7.326 7.35-7.45 L code = POCPHA) POC ARTERIAL BLOOD GAS PCO2 81.2 mmHg 35.0-45 HH (test code = SZVTNT8X) POC TCO2 ARTERIAL (test code = 45.3 POCTCO2) POC ARTERIAL BLOOD GAS PO2 (test 78.4 mmHg 80-100.0 L code = DFXOJ5N) POC HCO3 ARTERIAL (test code = 42.8 MMOL/L 22.0-26.0 HH BCWRPN7B) POC BASE EXCESS (test code = 16.6 MMOL/L -4.0-4.0 H POCBEA) POC O2 SATURATION (test code = 94.0 % 90-100 N POCO2S) FIO2 (test code = FIO2A) 40 % PaO2/FiO2 (test code = URE7MOH4) 196.00 mm/Hg ABG DELIVERY (test code = MAAME) BiPAP ABG TEMPERATURE (test code = 97.3 F TEMPA) ABG SITE (test code = SITEA) Art Line MARTIN'S TEST (test code = N/A ALLENS) BASIC METABOLIC [id number] 01:21:00 Test Item Value Reference Range Interpretation Comments SODIUM (test code = NA/ABG) 143 MEQ/L 134-147 N POTASSIUM (test code = K/ABG) 4.1 MEQ/L 3.4-5.0 N CHLORIDE (test code = CL/ABG) 98 MEQ/L 100-108 L CREATININE ABG (test code = 1.2 mg/dL 0.6-1.0 H CREAABG) POC IONIZED CALCIUM (test code = 1.34 MMOL/L 1.12-1.32 H POCCA) POC GLUCOSE (test code = POCGLU) 120 MG/DL 70-110 H HEMOGLOBIN [id number] 01:21:00 Test Item Value Reference Range Interpretation Comments HEMOGLOBIN ABG (test code = HGB/ABG) 7.5 G/DL 11.0-15.0 L [id number] 01:21:00 Test Item Value Reference Range Interpretation Comments HEMATOCRIT (test code = HCT/ABG) 22 % 33.0-45.0 L POC LACTIC [id number] 01:21:00 Test Item Value Reference Range Interpretation Comments POC LACTIC ACID (test code = 0.7 mmol/l 0.9-1.7 L POCLAC) GLUCOSE [id number] 01:05:00 Test Item Value Reference Range Interpretation Comments GLUCOSE BEDSIDE (test 126 MG/DL 70-110 H Perfor med by certified code = GLUBED) 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 1945 Sex: F FAX:Jeffry Pennington MD [phone] [place]: St: ADM FAX: Abdiaziz Christiansen MD [phone] FAX: Solange Sawyer MD [phone] FAX: Colt Aguillon MD [phone] Name: SAÚL GILES [facility] : 1945 Age/S: 76/F [address] [place] [address] Unit #: [id number] Loc: G.[address] [place] [address] Phys: Solange Mohamud MD Acct: [id number] Dis Date: Status: ADM IN PHONE #: [phone] Exam Date: 12/29/2021 0617FAX #: [phone] Reason: POST-OP CV SURGERY EXAMS: CPT CODE: [id number] XR CHEST 1 V 54108 PROCEDURE INFORMATION: Exam: XR Chest Exam date and time: 12/29/2021 5:18 AM Age: 76 years old Clinical indication: Other: Post-op cv surgery TECHNIQUE: Imaging protocol: Radiologic exam of the chest. Views: 1 view. COMPARISON: CR XR CHEST 1V 12/28/2021 5:57 AM IMPRESSION: 1. The intracardiac pacer leads are grossly unchanged. 2. There is no significant interval change in generalized right pulmonary opacification. 3. There is mild improved aeration of both lung bases. 4. No pneumothorax is visible. at 0702 Reported and signed by: Bill Kern M.D. CC: Jeffry Hsu MD; Abdiaziz Fuchs MD; Solange Mohamud MD; Colt Vail MD Technologist: RT Caroline(R) Trnscrd Date/Time/By: 12/29/2021 (701) : By: [email or web address] Orig Print D/T: S: 12/29/2021 (701) PAGE 1 Signed ReportGLUCOSE [id number] 23:44:00 Test Item Value Reference Range Interpretation Comments GLUCOSE BEDSIDE (test 37 MG/DL 70-110 L 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 [id number] 21:29:00 Test Item Value Reference Range Interpretation Comments SODIUM (test code = NA) 145 mEq/L 134-147 N POTASSIUM (test code = 3.6 mEq/L 3.4-5.0 N K) CHLORIDE (test code = 103 mEq/L 100-108 N CL) CARBON DIOXIDE (test 39 mEq/l 21-33 H code = CO2) ANION GAP (test code = 7 0-20 N GAP) GLUCOSE (test code = 120 mg/dL 70-110 H GLU) BLOOD UREA NITROGEN 42 mg/dL 7-18 H (test code = BUN) GLOMERULAR FILTRATION 53.6 70-80 L Units of measure = RATE (test code = GFR) ml/mi n/1.73 m2 CREATININE (test code = 1.0 mg/dL 0.6-1.3 N CREAT) CALCIUM (test code = 9.7 mg/dL 8.0-10.5 N CA) GLUCOSE [id number] 21:20:00 Test Item Value Reference Range Interpretation Comments GLUCOSE BEDSIDE (test 117 MG/DL 70-110 H [facility] med by certified code = GLUBED) 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[facility] POC ARTERIAL BLOOD [id number] 21:09:00 Test Item Value Reference Range Interpretation Comments POC ARTERIAL BLOOD GAS PH (test 7.363 7.35-7.45 N code = POCPHA) POC ARTERIAL BLOOD GAS PCO2 (test 72.2 mmHg 35.0-45 HH code = UIRPLU2K) POC TCO2 ARTERIAL (test code = 43.4 POCTCO2) POC ARTERIAL BLOOD GAS PO2 (test 77.1 mmHg 80-100.0 L code = CQTHT1J) POC HCO3 ARTERIAL (test code = 41.2 MMOL/L 22.0-26.0 HH AOGSXX2H) POC BASE EXCESS (test code = 15.7 MMOL/L -4.0-4.0 H POCBEA) POC O2 SATURATION (test code = 94.1 % 90-100 N POCO2S) ABG DELIVERY (test code = MAAME) Cannula ABG TEMPERATURE (test code = 98.1 F TEMPA) ABG SITE (test code = SITEA) Art Line BASIC METABOLIC [id number] 21:09:00 Test Item Value Reference Range Interpretation Comments SODIUM (test code = NA/ABG) 144 MEQ/L 134-147 N POTASSIUM (test code = K/ABG) 3.5 MEQ/L 3.4-5.0 N CHLORIDE (test code = CL/ABG) 99 MEQ/L 100-108 L CREATININE ABG (test code = 1.5 mg/dL 0.6-1.0 H CREAABG) POC IONIZED CALCIUM (test code = 1.33 MMOL/L 1.12-1.32 H POCCA) POC GLUCOSE (test code = POCGLU) 104 MG/DL 70-110 N HEMOGLOBIN [id number] 21:09:00 Test Item Value Reference Range Interpretation Comments HEMOGLOBIN ABG (test code = HGB/ABG) 8.2 G/DL 11.0-15.0 L [id number] 21:09:00 Test Item Value Reference Range Interpretation Comments HEMATOCRIT (test code = HCT/ABG) 24 % 33.0-45.0 L POC LACTIC [id number] 21:09:00 Test Item Value Reference Range Interpretation Comments POC LACTIC ACID (test code = 0.8 mmol/l 0.9-1.7 L POCLAC) GLUCOSE [id number] 19:27:00 Test Item Value Reference Range Interpretation Comments GLUCOSE BEDSIDE (test 139 MG/DL 70-110 H Perfor med by certified code = GLUBED) 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[facility] GLUCOSE [id number] 19:21:00 Test Item Value Reference Range Interpretation Comments GLUCOSE BEDSIDE (test 106 MG/DL 70-110 N Perfor med by certified code = GLUBED) 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[facility] GLUCOSE [id number] 16:45:00 Test Item Value Reference Range Interpretation Comments GLUCOSE BEDSIDE (test 162 MG/DL 70-110 H Perfor med by certified code = GLUBED) 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[facility] GLUCOSE [id number] 16:42:00 Test Item Value Reference Range Interpretation Comments GLUCOSE BEDSIDE (test 225 MG/DL 70-110 H Perfor med by certified code = GLUBED) 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[facility] POC ARTERIAL BLOOD [id number] 16:39:00 Test Item Value Reference Range Interpretation Comments POC ARTERIAL BLOOD GAS PH (test 7.396 7.35-7.45 N code = POCPHA) POC ARTERIAL BLOOD GAS PCO2 (test 65.9 mmHg 35.0-45 HH code = [id number]) POC TCO2 ARTERIAL (test code = 42.7 POCTCO2) POC ARTERIAL BLOOD GAS PO2 (test 74.6 mmHg 80-100.0 L code = [id number]) POC HCO3 ARTERIAL (test code = 40.6 MMOL/L 22.0-26.0 HH [id number]) POC BASE EXCESS (test code = 15.7 MMOL/L -4.0-4.0 H POCBEA) POC O2 SATURATION (test code = 94.3 % 90-100 N POCO2S) ABG DELIVERY (test code = MAAME) Cannula ABG TEMPERATURE (test code = 98 F TEMPA) ABG SITE (test code = SITEA) Art Line BASIC METABOLIC [id number] 16:39:00 Test Item Value Reference Range Interpretation Comments SODIUM (test code = NA/ABG) 143 MEQ/L 134-147 N POTASSIUM (test code = K/ABG) 3.6 MEQ/L 3.4-5.0 N CHLORIDE (test code = CL/ABG) 98 MEQ/L 100-108 L CREATININE ABG (test code = 1.2 mg/dL 0.6-1.0 H CREAABG) POC IONIZED CALCIUM (test code = 1.35 MMOL/L 1.12-1.32 H POCCA) POC GLUCOSE (test code = POCGLU) 131 MG/DL 70-110 H HEMOGLOBIN [id number] 16:39:00 Test Item Value Reference Range Interpretation Comments HEMOGLOBIN ABG (test code = HGB/ABG) 8.5 G/DL 11.0-15.0 L [id number] 16:39:00 Test Item Value Reference Range Interpretation Comments HEMATOCRIT (test code = HCT/ABG) 25 % 33.0-45.0 L POC LACTIC [id number] 16:39:00 Test Item Value Reference Range Interpretation Comments POC LACTIC ACID (test code = 0.7 mmol/l 0.9-1.7 L POCLAC) GLUCOSE [id number] 14:00:00 Test Item Value Reference Range Interpretation Comments GLUCOSE BEDSIDE (test 212 MG/DL 70-110 H Perfor med by certified code = GLUBED) 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[facility] GLUCOSE [id number] 13:59:00 Test Item Value Reference Range Interpretation Comments GLUCOSE BEDSIDE (test 227 MG/DL 70-110 H Perfor med by certified code = GLUBED) 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 [id number] 12:35:00 Test Item Value Reference Range Interpretation Comments SODIUM (test code = NA) 142 mEq/L 134-147 N POTASSIUM (test code = 4.0 mEq/L 3.4-5.0 N K) CHLORIDE (test code = 101 mEq/L 100-108 N CL) CARBON DIOXIDE (test 38 mEq/l 21-33 H code = CO2) ANION GAP (test code = 7 0-20 N GAP) GLUCOSE (test code = 295 mg/dL 70-110 H GLU) BLOOD UREA NITROGEN 38 mg/dL 7-18 H (test code = BUN) GLOMERULAR FILTRATION 53.6 70-80 L Units of measure = RATE (test code = GFR) ml/mi n/1.73 m2 CREATININE (test code = 1.0 mg/dL 0.6-1.3 N CREAT) CALCIUM (test code = 9.5 mg/dL 8.0-10.5 N CA) POC ARTERIAL BLOOD [id number] 11:40:00 Test Item Value Reference Range Interpretation Comments POC ARTERIAL BLOOD GAS PH (test 7.349 7.35-7.45 L code = POCPHA) POC ARTERIAL BLOOD GAS PCO2 72.2 mmHg 35.0-45 HH (test code = SVULNV8P) POC TCO2 ARTERIAL (test code = 42.2 POCTCO2) POC ARTERIAL BLOOD GAS PO2 (test 95.9 mmHg 80-100.0 N code = SSEMX4L) POC HCO3 ARTERIAL (test code = 39.9 MMOL/L 22.0-26.0 HH [id number]) POC BASE EXCESS (test code = 14.2 MMOL/L -4.0-4.0 H POCBEA) POC O2 SATURATION (test code = 96.7 % 90-100 N POCO2S) FIO2 (test code = FIO2A) 40 % PaO2/FiO2 (test code = [id number]) 239.75 mm/Hg ABG DELIVERY (test code = MAAME) CPAP ABG TEMPERATURE (test code = 98 F TEMPA) ABG SITE (test code = SITEA) Art Line MARTIN'S TEST (test code = N/A ALLENS) BASIC METABOLIC [id number] 11:40:00 Test Item Value Reference Range Interpretation Comments SODIUM (test code = NA/ABG) 142 MEQ/L 134-147 N POTASSIUM (test code = K/ABG) 3.8 MEQ/L 3.4-5.0 N CHLORIDE (test code = CL/ABG) 95 MEQ/L 100-108 L CREATININE ABG (test code = 1.2 mg/dL 0.6-1.0 H CREAABG) POC IONIZED CALCIUM (test code = 1.27 MMOL/L 1.12-1.32 N POCCA) POC GLUCOSE (test code = POCGLU) 303 MG/DL 70-110 H HEMOGLOBIN [id number] 11:40:00 Test Item Value Reference Range Interpretation Comments HEMOGLOBIN ABG (test code = HGB/ABG) 8.3 G/DL 11.0-15.0 L [id number] 11:40:00 Test Item Value Reference Range Interpretation Comments HEMATOCRIT (test code = HCT/ABG) 24 % 33.0-45.0 L POC LACTIC [id number] 11:40:00 Test Item Value Reference Range Interpretation Comments POC LACTIC ACID (test code = 0.7 mmol/l 0.9-1.7 L POCLAC) GLUCOSE [id number] 10:54:00 Test Item Value Reference Range Interpretation Comments GLUCOSE BEDSIDE (test 289 MG/DL 70-110 H Perfor med by certified code = GLUBED) 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[facility] GLUCOSE [id number] 07:48:00 Test Item Value Reference Range Interpretation Comments GLUCOSE BEDSIDE (test 107 MG/DL 70-110 N Perfor med by certified code = GLUBED) 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[facility] BASIC METABOLIC [id number] 04:25:00 Test Item Value Reference Range Interpretation Comments SODIUM (test code = NA) 145 mEq/L 134-147 N POTASSIUM (test code = 3.9 mEq/L 3.4-5.0 N K) CHLORIDE (test code = 101 mEq/L 100-108 N CL) CARBON DIOXIDE (test 40 mEq/l 21-33 H code = CO2) ANION GAP (test code = 8 0-20 N GAP) GLUCOSE (test code = 114 mg/dL 70-110 H GLU) BLOOD UREA NITROGEN 43 mg/dL 7-18 H (test code = BUN) GLOMERULAR FILTRATION 53.6 70-80 L Units of measure = RATE (test code = GFR) ml/mi n/1.73 m2 CREATININE (test code = 1.0 mg/dL 0.6-1.3 N CREAT) CALCIUM (test code = 10.0 mg/dL 8.0-10.5 N CA) [id number] 04:25:00 Test Item Value Reference Range Interpretation Comments MAGNESIUM (test code = MAG) 2.19 mg/dL 1.80-2.40 N CBC W/AUTO [id number] 04:02:00 Test Item Value Reference Range Interpretation Comments WHITE BLOOD CELL (test code = 8.1 x10 3/uL 4.5-11.0 N WBC) RED BLOOD CELL (test code = 2.13 x10 6/uL 3.54-5.02 L RBC) HEMOGLOBIN (test code = HGB) 7.8 g/dL 11.0-15.0 L HEMATOCRIT (test code = HCT) 23.6 % 33.0-45.0 L MEAN CELL VOLUME (test code = 110.8 fL 81.0-99.0 H MCV) MEAN CELL HGB (test code = MCH) 36.6 pg 27.0-33.0 H MEAN CELL HGB CONCETRATION 33.1 g/dL 33.0-37.0 N (test code = MCHC) RED CELL DISTRIBUTION WIDTH CV 16.2 % 11.5-14.5 H (test code = RDW) RED CELL DISTRIBUTION WIDTH SD 63.6 fL 37.0-54.0 H (test code = RDW-SD) PLATELET COUNT (test code = 212 x10 3/uL 150-400 N PLT) MEAN PLATELET VOLUME (test code 10.9 fL 7.0-9.0 H = MPV) NEUTROPHIL % (test code = NT%) 80.6 % 56.0-77.0 H IMMATURE GRANULOCYTE % (test 2.3 % 0.0-2.0 H code = IG%) LYMPHOCYTE % (test code = LY%) 5.4 % 14.0-32.0 L MONOCYTE % (test code = MO%) 10.0 % 4.8-9.0 H EOSINOPHIL % (test code = EO%) 1.6 % 0.3-3.7 N BASOPHIL % (test code = BA%) 0.1 % 0.0-2.0 N NUCLEATED RBC % (test code = 0.9 % 0-0 H NRBC%) NEUTROPHIL # (test code = NT#) 6.51 x10 3/uL 2.0-7.6 N IMMATURE GRANULOCYTE # (test 0.19 x10 3/uL 0.00-0.03 H code = IG#) LYMPHOCYTE # (test code = LY#) 0.44 x10 3/uL 1.0-3.8 L MONOCYTE # (test code = MO#) 0.81 x10 3/uL 0.1-0.8 H EOSINOPHIL # (test code = EO#) 0.13 x10 3/uL 0.0-0.2 N BASOPHIL # (test code = BA#) 0.01 x10 3/uL 0.0-0.2 N NUCLEATED RBC # (test code = 0.07 x10 3/uL 0.0-0.1 N NRBC#) MANUAL DIFF REQUIRED (test code NO = MDIFF) POC ARTERIAL BLOOD [id number] 03:44:00 Test Item Value Reference Range Interpretation Comments POC ARTERIAL BLOOD GAS PH (test 7.408 7.35-7.45 N code = POCPHA) POC ARTERIAL BLOOD GAS PCO2 (test 63.1 mmHg 35.0-45 HH code = RIPVDB2T) POC TCO2 ARTERIAL (test code = 42.0 POCTCO2) POC ARTERIAL BLOOD GAS PO2 (test 58.6 mmHg 80-100.0 L code = AMKYS3A) POC HCO3 ARTERIAL (test code = 40.0 MMOL/L 22.0-26.0 HH [id number]) POC BASE EXCESS (test code = 15.2 MMOL/L -4.0-4.0 H POCBEA) POC O2 SATURATION (test code = 89.7 % 90-100 L POCO2S) ABG DELIVERY (test code = MAAME) Cannula ABG TEMPERATURE (test code = 97.7 F TEMPA) ABG SITE (test code = SITEA) Art Line BASIC METABOLIC [id number] 03:44:00 Test Item Value Reference Range Interpretation Comments SODIUM (test code = NA/ABG) 144 MEQ/L 134-147 N POTASSIUM (test code = K/ABG) 3.7 MEQ/L 3.4-5.0 N CHLORIDE (test code = CL/ABG) 99 MEQ/L 100-108 L CREATININE ABG (test code = 1.0 mg/dL 0.6-1.0 N CREAABG) POC IONIZED CALCIUM (test code = 1.32 MMOL/L 1.12-1.32 N POCCA) POC GLUCOSE (test code = POCGLU) 102 MG/DL 70-110 N HEMOGLOBIN [id number] 03:44:00 Test Item Value Reference Range Interpretation Comments HEMOGLOBIN ABG (test code = HGB/ABG) 8.4 G/DL 11.0-15.0 L [id number] 03:44:00 Test Item Value Reference Range Interpretation Comments HEMATOCRIT (test code = HCT/ABG) 25 % 33.0-45.0 L POC LACTIC [id number] 03:44:00 Test Item Value Reference Range Interpretation Comments POC LACTIC ACID (test code = 0.5 mmol/l 0.9-1.7 L POCLAC) GLUCOSE [id number] 01:41:00 Test Item Value Reference Range Interpretation Comments GLUCOSE BEDSIDE (test 130 MG/DL 70-110 H Perfor med by certified code = GLUBED) 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 1945 Sex: F FAX:Jeffry Pennington MD [phone] [place]: St: [facility] [place] FAX: Abdiaziz Christiansen MD [phone] FAX: Solange Sawyer MD [phone] FAX: Colt Aguillon MD [phone] Name: SAÚL GILES [facility] : 1945 Age/S: 76/F [address] [place] [address] Unit #: [id number] Loc: [address] [place] [address] Phys: Solange Mohamud MD Acct: [id number] Dis Date: Status: ADM IN PHONE #: [phone] Exam Date: 12/28/2021 0709 FAX #: [phone] Reason: POST-OP CV SURGERY EXAMS: CPT CODE: [id number] XR CHEST 1 V 24136 PROCEDUREINFORMATION: Exam: XR Chest Exam date and time: 12/28/2021 5:57 AM Age: 76 years old Clinical indication: Other: Post-op cv surgery TECHNIQUE: Imaging protocol: Radiologic exam of the chest. Views: 1 view. COMPARISON: CR XR CHEST 1V 12/27/2021 5:54 AM FINDINGS: Tubes, catheters and devices: Left chest pacemaker device is demonstrated. Surgical clips overlie the mediastinum. Lungs: Diffuse lung opacities identified. Predominantly alveolar pulmonary edema versus infiltrates, pneumonia is demonstrated within the lungs. Basilar consolidation. Progression of lung opacities is demonstrated. Pleural spaces: Moderate volume bilateral pleural effusions. No pneumothorax identified. Heart/Mediastinum: Cardiac silhouette appears moderate to severely enlarged. Bones/joints: Diffusely decreased bone density. Generalized bony degenerative changes. Sternotomy wires, hardware is demonstrated. Soft tissues: Thisstudy is limited by patient's body habitus. Other findings: Limited study with patient rotation. IMPRESSION: 1. Moderate to severe enlarged cardiac silhouette. 2. Severe alveolar pulmonary edema versus pneumonia. Progression. 3. Moderate bilateral pleural effusions. 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[facility] POC ARTERIAL BLOOD [id number] 23:14:00 Test Item Value Reference Range Interpretation Comments POC ARTERIAL BLOOD GAS PH (test 7.378 7.35-7.45 N code = POCPHA) POC ARTERIAL BLOOD GAS PCO2 (test 71.2 mmHg 35.0-45 HH code = FSOHZX3I) POC TCO2 ARTERIAL (test code = 44.1 POCTCO2) POC ARTERIAL BLOOD GAS PO2 (test 86.3 mmHg 80-100.0 N code = GLRCI3P) POC HCO3 ARTERIAL (test code = 41.9 MMOL/L 22.0-26.0 HH [id number]) POC BASE EXCESS (test code = 16.7 MMOL/L -4.0-4.0 H POCBEA) POC O2 SATURATION (test code = 95.7 % 90-100 N POCO2S) ABG DELIVERY (test code = MAAME) Cannula ABG TEMPERATURE (test code = 98.6 F TEMPA) ABG SITE (test code = SITEA) Art Line BASIC METABOLIC [id number] 23:14:00 Test Item Value Reference Range Interpretation Comments SODIUM (test code = NA/ABG) 146 MEQ/L 134-147 N POTASSIUM (test code = K/ABG) 3.8 MEQ/L 3.4-5.0 N CHLORIDE (test code = CL/ABG) 100 MEQ/L 100-108 N CREATININE ABG (test code = 1.2 mg/dL 0.6-1.0 H CREAABG) POC IONIZED CALCIUM (test code = 1.25 MMOL/L 1.12-1.32 N POCCA) POC GLUCOSE (test code = POCGLU) 86 MG/DL 70-110 N HEMOGLOBIN [id number] 23:14:00 Test Item Value Reference Range Interpretation Comments HEMOGLOBIN ABG (test code = HGB/ABG) 8.2 G/DL 11.0-15.0 L [id number] 23:14:00 Test Item Value Reference Range Interpretation Comments HEMATOCRIT (test code = HCT/ABG) 24 % 33.0-45.0 L POC LACTIC [id number] 23:14:00 Test Item Value Reference Range Interpretation Comments POC LACTIC ACID (test code = 0.7 mmol/l 0.9-1.7 L POCLAC) GLUCOSE [id number] 19:13:00 Test Item Value Reference Range Interpretation Comments GLUCOSE BEDSIDE (test 155 MG/DL 70-110 H Perfor med by certified code = GLUBED) 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[facility] FLUID [id number] 17:44:00 Test Item Value Reference Range Interpretation Comments FLUID CO2 (test code = CO2BF) 38 21-33 H FLUID [id number] 17:44:00 Test Item Value Reference Range Interpretation Comments FLUID CO2 (test code = CO2BF) 38 21-33 H GLUCOSE [id number] 17:18:00 Test Item Value Reference Range Interpretation Comments GLUCOSE BEDSIDE (test 116 MG/DL 70-110 H Perfor med by certified code = GLUBED) 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[facility] BASIC METABOLIC [id number] 16:33:00 Test Item Value Reference Range Interpretation Comments SODIUM (test code = NA) 145 mEq/L 134-147 N POTASSIUM (test code = 3.9 mEq/L 3.4-5.0 N K) CHLORIDE (test code = 101 mEq/L 100-108 N CL) CARBON DIOXIDE (test 38 mEq/l 21-33 H code = CO2) ANION GAP (test code = 10 0-20 N GAP) GLUCOSE (test code = 166 mg/dL 70-110 H GLU) BLOOD UREA NITROGEN 48 mg/dL 7-18 H (test code = BUN) GLOMERULAR FILTRATION 53.6 70-80 L Units of measure = RATE (test code = GFR) ml/mi n/1.73 m2 CREATININE (test code = 1.0 mg/dL 0.6-1.3 N CREAT) CALCIUM (test code = 9.6 mg/dL 8.0-10.5 N CA) [id number] 16:33:00 Test Item Value Reference Range Interpretation Comments MAGNESIUM (test code = MAG) 2.30 mg/dL 1.80-2.40 N GLUCOSE [id number] 15:13:00 Test Item Value Reference Range Interpretation Comments GLUCOSE BEDSIDE (test 198 MG/DL 70-110 H Perfor med by certified code = GLUBED) 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[facility] GLUCOSE [id number] 15:13:00 Test Item Value Reference Range Interpretation Comments GLUCOSE BEDSIDE (test 159 MG/DL 70-110 H Perfor med by certified code = GLUBED) 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[facility] BASIC METABOLIC [id number] 15:01:00 Test Item Value Reference Range Interpretation Comments SODIUM (test code = NA) 143 mEq/L 134-147 N POTASSIUM (test code = 3.9 mEq/L 3.4-5.0 N K) CHLORIDE (test code = 101 mEq/L 100-108 N CL) CARBON DIOXIDE (test 37 mEq/l 21-33 H code = CO2) ANION GAP (test code = 9 0-20 N GAP) GLUCOSE (test code = 220 mg/dL 70-110 H GLU) BLOOD UREA NITROGEN 43 mg/dL 7-18 H (test code = BUN) GLOMERULAR FILTRATION 48.0 70-80 L Units of measure = RATE (test code = GFR) ml/mi n/1.73 m2 CREATININE (test code = 1.1 mg/dL 0.6-1.3 N CREAT) CALCIUM (test code = 9.8 mg/dL 8.0-10.5 N CA) GLUCOSE [id number] 13:01:00 Test Item Value Reference Range Interpretation Comments GLUCOSE BEDSIDE (test 166 MG/DL 70-[address] 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[facility] BASIC METABOLIC [id number] 11:08:00 Test Item Value Reference Range Interpretation Comments SODIUM (test code = NA) 144 mEq/L 134-147 N POTASSIUM (test code = 3.4 mEq/L 3.4-5.0 N K) CHLORIDE (test code = 99 mEq/L 100-108 L CL) CARBON DIOXIDE (test > 40 mEq/l 21-33 H code = CO2) ANION GAP (test code = 8 0-20 N GAP) GLUCOSE (test code = 193 mg/dL 70-110 H GLU) BLOOD UREA NITROGEN 49 mg/dL 7-18 H (test code = BUN) GLOMERULAR FILTRATION 48.0 70-80 L Units of measure = RATE (test code = GFR) ml/mi n/1.73 m2 CREATININE (test code = 1.1 mg/dL 0.6-1.3 N CREAT) CALCIUM (test code = 10.0 mg/dL 8.0-10.5 N CA) GLUCOSE [id number] 10:29:00 Test Item Value Reference Range Interpretation Comments GLUCOSE BEDSIDE (test 183 MG/DL 70-110 H [facility] med by certified code = GLUBED) 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[facility] POC ARTERIAL BLOOD [id number] 10:20:00 Test Item Value Reference Range Interpretation Comments POC ARTERIAL BLOOD GAS PH (test 7.430 7.35-7.45 N code = POCPHA) POC ARTERIAL BLOOD GAS PCO2 (test 63.2 mmHg 35.0-45 HH code = BXMRHV9M) POC TCO2 ARTERIAL (test code = 44.1 POCTCO2) POC ARTERIAL BLOOD GAS PO2 (test 73.3 mmHg 80-100.0 L code = ELQCL9B) POC HCO3 ARTERIAL (test code = 42.1 MMOL/L 22.0-26.0 HH STFFXY3O) POC BASE EXCESS (test code = 17.7 MMOL/L -4.0-4.0 H POCBEA) POC O2 SATURATION (test code = 94.5 % 90-100 N POCO2S) ABG DELIVERY (test code = MAAME) Cannula ABG TEMPERATURE (test code = 98 F TEMPA) ABG SITE (test code = SITEA) Art Line MARTIN'S TEST (test code = ALLENS) N/A BASIC METABOLIC [id number] 10:20:00 Test Item Value Reference Range Interpretation Comments SODIUM (test code = NA/ABG) 143 MEQ/L 134-147 N POTASSIUM (test code = K/ABG) 3.2 MEQ/L 3.4-5.0 L CHLORIDE (test code = CL/ABG) 94 MEQ/L 100-108 L CREATININE ABG (test code = 1.3 mg/dL 0.6-1.0 H CREAABG) POC IONIZED CALCIUM (test code = 1.32 MMOL/L 1.12-1.32 N POCCA) POC GLUCOSE (test code = POCGLU) 184 MG/DL 70-110 H HEMOGLOBIN [id number] 10:20:00 Test Item Value Reference Range Interpretation Comments HEMOGLOBIN ABG (test code = HGB/ABG) 8.5 G/DL 11.0-15.0 L [id number] 10:20:00 Test Item Value Reference Range Interpretation Comments HEMATOCRIT (test code = HCT/ABG) 25 % 33.0-45.0 L POC LACTIC [id number] 10:20:00 Test Item Value Reference Range Interpretation Comments POC LACTIC ACID (test code = 1.2 mmol/l 0.9-1.7 N POCLAC) GLUCOSE [id number] 09:11:00 Test Item Value Reference Range Interpretation Comments GLUCOSE BEDSIDE (test 235 MG/DL 70-110 H Perfor med by certified code = GLUBED) 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[facility] GLUCOSE [id number] 08:15:00 Test Item Value Reference Range Interpretation Comments GLUCOSE BEDSIDE (test 259 MG/DL 70-110 H Perfor med by certified code = GLUBED) 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[facility] GLUCOSE [id number] 05:53:00 Test Item Value Reference Range Interpretation Comments GLUCOSE BEDSIDE (test 203 MG/DL 70-110 H Perfor med by certified code = GLUBED) 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[facility] CBC W/AUTO [id number] 04:38:00 Test Item Value Reference Range Interpretation Comments WHITE BLOOD CELL (test code = 8.4 x10 3/uL 4.5-11.0 N WBC) RED BLOOD CELL (test code = 2.26 x10 6/uL 3.54-5.02 L RBC) HEMOGLOBIN (test code = HGB) 7.7 g/dL 11.0-15.0 L HEMATOCRIT (test code = HCT) 24.7 % 33.0-45.0 L MEAN CELL VOLUME (test code = 109.3 fL 81.0-99.0 H MCV) MEAN CELL HGB (test code = MCH) 34.1 pg 27.0-33.0 H MEAN CELL HGB CONCETRATION 31.2 g/dL 33.0-37.0 L (test code = MCHC) RED CELL DISTRIBUTION WIDTH CV 15.9 % 11.5-14.5 H (test code = RDW) RED CELL DISTRIBUTION WIDTH SD 63.5 fL 37.0-54.0 H (test code = RDW-SD) PLATELET COUNT (test code = 184 x10 3/uL 150-400 N PLT) MEAN PLATELET VOLUME (test code 11.2 fL 7.0-9.0 H = MPV) NEUTROPHIL % (test code = NT%) 78.4 % 56.0-77.0 H IMMATURE GRANULOCYTE % (test 2.4 % 0.0-2.0 H code = IG%) LYMPHOCYTE % (test code = LY%) 5.2 % 14.0-32.0 L MONOCYTE % (test code = MO%) 12.6 % 4.8-9.0 H EOSINOPHIL % (test code = EO%) 1.3 % 0.3-3.7 N BASOPHIL % (test code = BA%) 0.1 % 0.0-2.0 N NUCLEATED RBC % (test code = 1.5 % 0-0 H NRBC%) NEUTROPHIL # (test code = NT#) 6.57 x10 3/uL 2.0-7.6 N IMMATURE GRANULOCYTE # (test 0.20 x10 3/uL 0.00-0.03 H code = IG#) LYMPHOCYTE # (test code = LY#) 0.44 x10 3/uL 1.0-3.8 L MONOCYTE # (test code = MO#) 1.06 x10 3/uL 0.1-0.8 H EOSINOPHIL # (test code = EO#) 0.11 x10 3/uL 0.0-0.2 N BASOPHIL # (test code = BA#) 0.01 x10 3/uL 0.0-0.2 N NUCLEATED RBC # (test code = 0.13 x10 3/uL 0.0-0.1 H NRBC#) MANUAL DIFF REQUIRED (test code NO = MDIFF) BASIC METABOLIC [id number] 04:19:00 Test Item Value Reference Range Interpretation Comments SODIUM (test code = NA) 148 mEq/L 134-147 H POTASSIUM (test code = 3.5 mEq/L 3.4-5.0 N K) CHLORIDE (test code = 101 mEq/L 100-108 N CL) CARBON DIOXIDE (test 38 mEq/l 21-33 H code = CO2) ANION GAP (test code = 13 0-20 N GAP) GLUCOSE (test code = 101 mg/dL 70-110 GLU) BLOOD UREA NITROGEN 49 mg/dL 7-18 H (test code = BUN) GLOMERULAR FILTRATION 60.6 70-80 L Units of measure = RATE (test code = GFR) ml/mi n/1.73 m2 CREATININE (test code = 0.9 mg/dL 0.6-1.3 N CREAT) CALCIUM (test code = 9.9 mg/dL 8.0-10.5 N CA) [id number] 04:19:00 Test Item Value Reference Range Interpretation Comments MAGNESIUM (test code = MAG) 2.20 mg/dL 1.80-2.40 N POC ARTERIAL BLOOD [id number] 02:45:00 Test Item Value Reference Range Interpretation Comments POC ARTERIAL BLOOD GAS PH (test 7.388 7.35-7.45 N code = POCPHA) POC ARTERIAL BLOOD GAS PCO2 70.2 mmHg 35.0-45 HH (test code = GUUWEI1C) POC TCO2 ARTERIAL (test code = 44.5 POCTCO2) POC ARTERIAL BLOOD GAS PO2 (test 85.6 mmHg 80-100.0 N code = QWMDR1N) POC HCO3 ARTERIAL (test code = 42.4 MMOL/L 22.0-26.0 HH CPLFKO5D) POC BASE EXCESS (test code = 17.4 MMOL/L -4.0-4.0 H POCBEA) POC O2 SATURATION (test code = 95.8 % 90-100 N POCO2S) FIO2 (test code = FIO2A) 50 % PaO2/FiO2 (test code = [id number]) 171.20 mm/Hg ABG DELIVERY (test code = MAAME) BiPAP ABG PEEP (test code = PEEPA) 5 cmH2O ABG TEMPERATURE (test code = 98.4 F TEMPA) ABG SITE (test code = SITEA) Art Line BASIC METABOLIC [id number] 02:45:00 Test Item Value Reference Range Interpretation Comments SODIUM (test code = NA/ABG) 145 MEQ/L 134-147 N POTASSIUM (test code = K/ABG) 3.2 MEQ/L 3.4-5.0 L CHLORIDE (test code = CL/ABG) 98 MEQ/L 100-108 L CREATININE ABG (test code = 1.0 mg/dL 0.6-1.0 N CREAABG) POC IONIZED CALCIUM (test code = 1.36 MMOL/L 1.12-1.32 H POCCA) POC GLUCOSE (test code = POCGLU) 95 MG/DL 70-110 N HEMOGLOBIN [id number] 02:45:00 Test Item Value Reference Range Interpretation Comments HEMOGLOBIN ABG (test code = HGB/ABG) 8.2 G/DL 11.0-15.0 L [id number] 02:45:00 Test Item Value Reference Range Interpretation Comments HEMATOCRIT (test code = HCT/ABG) 24 % 33.0-45.0 L POC LACTIC [id number] 02:45:00 Test Item Value Reference Range Interpretation Comments POC LACTIC ACID (test code = 0.6 mmol/l 0.9-1.7 L POCLAC) GLUCOSE [id number] 02:04:00 Test Item Value Reference Range Interpretation Comments GLUCOSE BEDSIDE (test 86 MG/DL 70-110 N Perfor med by certified code = GLUBED) 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 [facility] : 1945 Sex: F FAX:Jeffry Pennington MD [phone] [place]: St: ADM FAX: Abdiaziz Christiansen MD [phone] FAX: Solange Sawyer MD [phone] FAX: Colt Aguillon MD [phone] Name: SAÚL GILES [facility] James Hart : 1945 Age/S: 76/F [address] [place] [address] Unit #: [id number] Loc: [address] [place] [address] Phys: Solange Mohamud MD Acct: [id number] Dis Date: Status: ADM IN PHONE #: [phone] Exam Date: 12/27/2021 0732 FAX #: [phone] Reason: S/P CABG EXAMS: CPT CODE: [id number] XR CHEST 1 V [id number] PROCEDURE INFORMATION: Exam: XR Chest Exam date and time: 12/27/2021 5:54 AM Age: 76 years old Clinical indication: Other: S/P cabg TECHNIQUE: Imaging protocol: Radiologic exam of the chest. Views: 1 view. COMPARISON:CR XR CHEST 1V 12/26/2021 5:19 AM FINDINGS: Tubes, catheters and devices: Stable left multi lead pacemaker with no visible complication. Lungs: Persistent bilateral alveolar airspace disease. Pleural spaces: Stable to slightly improved bilateral layering pleural effusions. Heart/Mediastinum: Enlargedcardiac silhouette with median sternotomy changes in keeping with recent surgical history. Bones/joints: Severe thoracic spondylosis and right glenohumeral joint osteoarthritis. No destructive bone lesions. IMPRESSION: 1. Stable to slightly improved bilateral layering pleural effusions. 2. Similar bilateral alveolar pulmonary opacities, probably representing edema and or atelectasis/secretions. 3. Otherwise grossly stable postoperative mediastinum. at 1005 Reported and signed by: Jonathan Calles M.D. 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[facility] GLUCOSE [id number] 20:05:00 Test Item Value Reference Range Interpretation Comments GLUCOSE BEDSIDE (test 232 MG/DL 70-110 H Perfor med by certified code = GLUBED) 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[facility] BASIC METABOLIC [id number] 18:16:00 Test Item Value Reference Range Interpretation Comments SODIUM (test code = NA) 144 mEq/L 134-147 N POTASSIUM (test code = 3.8 mEq/L 3.4-5.0 N K) CHLORIDE (test code = 101 mEq/L 100-108 N CL) CARBON DIOXIDE (test 38 mEq/l 21-33 H code = CO2) ANION GAP (test code = 9 0-20 N GAP) GLUCOSE (test code = 287 mg/dL 70-110 H GLU) BLOOD UREA NITROGEN 54 mg/dL 7-18 H (test code = BUN) GLOMERULAR FILTRATION 53.6 70-80 L Units of measure = RATE (test code = GFR) ml/mi n/1.73 m2 CREATININE (test code = 1.0 mg/dL 0.6-1.3 N CREAT) CALCIUM (test code = 9.8 mg/dL 8.0-10.5 N CA) [id number] 18:16:00 Test Item Value Reference Range Interpretation Comments PHOSPHOROUS (test code = PHOS) 3.0 MG/DL 2.5-4.9 N [id number] 18:16:00 Test Item Value Reference Range Interpretation Comments MAGNESIUM (test code = MAG) 2.30 mg/dL 1.80-2.40 N GLUCOSE [id number] 17:47:00 Test Item Value Reference Range Interpretation Comments GLUCOSE BEDSIDE (test 283 MG/DL 70-110 H Perfor med by certified code = GLUBED) 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[facility] BASIC METABOLIC [id number] 13:10:00 Test Item Value Reference Range Interpretation Comments SODIUM (test code = NA) 144 mEq/L 134-147 N POTASSIUM (test code = 3.9 mEq/L 3.4-5.0 N K) CHLORIDE (test code = 101 mEq/L 100-108 N CL) CARBON DIOXIDE (test 39 mEq/l 21-33 H code = CO2) ANION GAP (test code = 8 0-20 N GAP) GLUCOSE (test code = 207 mg/dL 70-110 H GLU) BLOOD UREA NITROGEN 55 mg/dL 7-18 H (test code = BUN) GLOMERULAR FILTRATION 60.6 70-80 L Units of measure = RATE (test code = GFR) ml/mi n/1.73 m2 CREATININE (test code = 0.9 mg/dL 0.6-1.3 N CREAT) CALCIUM (test code = 10.1 mg/dL 8.0-10.5 N CA) [id number] 13:10:00 Test Item Value Reference Range Interpretation Comments MAGNESIUM (test code = MAG) 2.43 mg/dL 1.80-2.40 H CALCIUM [id number] 13:10:00 Test Item Value Reference Range Interpretation Comments CALCIUM IONIZED (test code = TYREE) 1.22 MMOL/L 1.09-1.30 N POC ARTERIAL BLOOD [id number] 12:53:00 Test Item Value Reference Range Interpretation Comments POC ARTERIAL BLOOD GAS PH (test 7.356 7.35-7.45 N code = POCPHA) POC ARTERIAL BLOOD GAS PCO2 (test 69.2 mmHg 35.0-45 HH code = GCFBQH5V) POC TCO2 ARTERIAL (test code = 40.9 POCTCO2) POC ARTERIAL BLOOD GAS PO2 (test 128.4 mmHg 80-100.0 H code = ELBPE3N) POC HCO3 ARTERIAL (test code = 38.8 MMOL/L 22.0-26.0 HH [id number]) POC BASE EXCESS (test code = 13.2 MMOL/L -4.0-4.0 H POCBEA) POC O2 SATURATION (test code = 98.6 % 90-100 N POCO2S) ABG DELIVERY (test code = MAAME) [facility] ABG SITE (test code = SITEA) Art Line BASIC METABOLIC [id number] 12:53:00 Test Item Value Reference Range Interpretation Comments SODIUM (test code = NA/ABG) 145 MEQ/L 134-147 N POTASSIUM (test code = K/ABG) 3.8 MEQ/L 3.4-5.0 N CHLORIDE (test code = CL/ABG) 99 MEQ/L 100-108 L CREATININE ABG (test code = 1.0 mg/dL 0.6-1.0 N CREAABG) POC IONIZED CALCIUM (test code = 1.37 MMOL/L 1.12-1.32 H POCCA) POC GLUCOSE (test code = POCGLU) 203 MG/DL 70-110 H HEMOGLOBIN [id number] 12:53:00 Test Item Value Reference Range Interpretation Comments HEMOGLOBIN ABG (test code = HGB/ABG) 8.6 G/DL 11.0-15.0 L [id number] 12:53:00 Test Item Value Reference Range Interpretation Comments HEMATOCRIT (test code = HCT/ABG) 25 % 33.0-45.0 L POC LACTIC [id number] 12:53:00 Test Item Value Reference Range Interpretation Comments POC LACTIC ACID (test code = 0.7 mmol/l 0.9-1.7 L POCLAC) POC ARTERIAL BLOOD [id number] 12:05:00 Test Item Value Reference Range Interpretation Comments POC ARTERIAL BLOOD GAS PH (test 7.364 7.35-7.45 N code = POCPHA) POC ARTERIAL BLOOD GAS PCO2 68.3 mmHg 35.0-45 HH (test code = ZXVGMT9G) POC TCO2 ARTERIAL (test code = 41.1 POCTCO2) POC ARTERIAL BLOOD GAS PO2 (test 100.9 mmHg 80-100.0 H code = TRZMM7A) POC HCO3 ARTERIAL (test code = 39.0 MMOL/L 22.0-26.0 HH HTTLQH2O) POC BASE EXCESS (test code = 13.6 MMOL/L -4.0-4.0 H POCBEA) POC O2 SATURATION (test code = 97.2 % 90-100 N POCO2S) FIO2 (test code = FIO2A) 50 % PaO2/FiO2 (test code = [id number]) 201.80 mm/Hg ABG DELIVERY (test code = MAAME) BiPAP ABG SITE (test code = SITEA) Art Line BASIC METABOLIC [id number] 12:05:00 Test Item Value Reference Range Interpretation Comments SODIUM (test code = NA/ABG) 146 MEQ/L 134-147 N POTASSIUM (test code = K/ABG) 3.7 MEQ/L 3.4-5.0 N CHLORIDE (test code = CL/ABG) 98 MEQ/L 100-108 L CREATININE ABG (test code = 1.0 mg/dL 0.6-1.0 N CREAABG) POC IONIZED CALCIUM (test code = 1.38 MMOL/L 1.12-1.32 H POCCA) POC GLUCOSE (test code = POCGLU) 194 MG/DL 70-110 H HEMOGLOBIN [id number] 12:05:00 Test Item Value Reference Range Interpretation Comments HEMOGLOBIN ABG (test code = HGB/ABG) 7.9 G/DL 11.0-15.0 L [id number] 12:05:00 Test Item Value Reference Range Interpretation Comments HEMATOCRIT (test code = HCT/ABG) 23 % 33.0-45.0 L POC LACTIC [id number] 12:05:00 Test Item Value Reference Range Interpretation Comments POC LACTIC ACID (test code = 0.6 mmol/l 0.9-1.7 L POCLAC) GLUCOSE [id number] 09:39:00 Test Item Value Reference Range Interpretation Comments GLUCOSE BEDSIDE (test 185 MG/DL 70-110 H Perfor med by certified code = GLUBED) 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[facility] GLUCOSE [id number] 05:54:00 Test Item Value Reference Range Interpretation Comments GLUCOSE BEDSIDE (test 168 MG/DL 70-110 H Perfor med by certified code = GLUBED) 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 [id number] 04:24:00 Test Item Value Reference Range Interpretation Comments SODIUM (test code = NA) 145 mEq/L 134-147 N POTASSIUM (test code = 3.9 mEq/L 3.4-5.0 N K) CHLORIDE (test code = 101 mEq/L 100-108 N CL) CARBON DIOXIDE (test 38 mEq/l 21-33 H code = CO2) ANION GAP (test code = 10 0-20 N GAP) GLUCOSE (test code = 200 mg/dL 70-110 H GLU) BLOOD UREA NITROGEN 58 mg/dL 7-18 H (test code = BUN) GLOMERULAR FILTRATION 53.6 70-80 L Units of measure = RATE (test code = GFR) ml/mi n/1.73 m2 CREATININE (test code = 1.0 mg/dL 0.6-1.3 N CREAT) CALCIUM (test code = 10.4 mg/dL 8.0-10.5 N CA) [id number] 04:24:00 Test Item Value Reference Range Interpretation Comments PHOSPHOROUS (test code = PHOS) 2.8 MG/DL 2.5-4.9 N [id number] 04:24:00 Test Item Value Reference Range Interpretation Comments MAGNESIUM (test code = MAG) 2.34 mg/dL 1.80-2.40 N CBC W/AUTO [id number] 04:03:00 Test Item Value Reference Range Interpretation Comments WHITE BLOOD CELL (test code = 6.9 x10 3/uL 4.5-11.0 N WBC) RED BLOOD CELL (test code = 2.03 x10 6/uL 3.54-5.02 L RBC) HEMOGLOBIN (test code = HGB) 8.0 g/dL 11.0-15.0 L HEMATOCRIT (test code = HCT) 22.9 % 33.0-45.0 L MEAN CELL VOLUME (test code = 112.8 fL 81.0-99.0 H MCV) MEAN CELL HGB (test code = MCH) 39.4 pg 27.0-33.0 H MEAN CELL HGB CONCETRATION 34.9 g/dL 33.0-37.0 N (test code = MCHC) RED CELL DISTRIBUTION WIDTH CV 16.2 % 11.5-14.5 H (test code = RDW) RED CELL DISTRIBUTION WIDTH SD 63.4 fL 37.0-54.0 H (test code = RDW-SD) PLATELET COUNT (test code = 166 x10 3/uL 150-400 N PLT) MEAN PLATELET VOLUME (test code 11.2 fL 7.0-9.0 H = MPV) NEUTROPHIL % (test code = NT%) 77.6 % 56.0-77.0 H IMMATURE GRANULOCYTE % (test 4.2 % 0.0-2.0 H code = IG%) LYMPHOCYTE % (test code = LY%) 4.2 % 14.0-32.0 L MONOCYTE % (test code = MO%) 12.6 % 4.8-9.0 H EOSINOPHIL % (test code = EO%) 1.3 % 0.3-3.7 N BASOPHIL % (test code = BA%) 0.1 % 0.0-2.0 N NUCLEATED RBC % (test code = 2.6 % 0-0 H NRBC%) NEUTROPHIL # (test code = NT#) 5.34 x10 3/uL 2.0-7.6 N IMMATURE GRANULOCYTE # (test 0.29 x10 3/uL 0.00-0.03 H code = IG#) LYMPHOCYTE # (test code = LY#) 0.29 x10 3/uL 1.0-3.8 L MONOCYTE # (test code = MO#) 0.87 x10 3/uL 0.1-0.8 H EOSINOPHIL # (test code = EO#) 0.09 x10 3/uL 0.0-0.2 N BASOPHIL # (test code = BA#) 0.01 x10 3/uL 0.0-0.2 N NUCLEATED RBC # (test code = 0.18 x10 3/uL 0.0-0.1 H NRBC#) MANUAL DIFF REQUIRED (test code NO = MDIFF) POC ARTERIAL BLOOD [id number] 03:32:00 Test Item Value Reference Range Interpretation Comments POC ARTERIAL BLOOD GAS PH (test 7.421 7.35-7.45 N code = POCPHA) POC ARTERIAL BLOOD GAS PCO2 63.7 mmHg 35.0-45 HH (test code = JFFUTQ7S) POC TCO2 ARTERIAL (test code = 43.5 POCTCO2) POC ARTERIAL BLOOD GAS PO2 (test 89.6 mmHg 80-100.0 N code = QVQMW9F) POC HCO3 ARTERIAL (test code = 41.5 MMOL/L 22.0-26.0 HH PFFNAP0S) POC BASE EXCESS (test code = 17.0 MMOL/L -4.0-4.0 H POCBEA) POC O2 SATURATION (test code = 96.8 % 90-100 N POCO2S) FIO2 (test code = FIO2A) 50 % PaO2/FiO2 (test code = [id number]) 179.20 mm/Hg ABG DELIVERY (test code = MAAME) BiPAP ABG VENT RESP RATE (test code = 26 /MIN RRA) ABG TEMPERATURE (test code = 98.1 F TEMPA) ABG SITE (test code = SITEA) L Radial MARTIN'S TEST (test code = N/A ALLENS) BASIC METABOLIC [id number] 03:32:00 Test Item Value Reference Range Interpretation Comments SODIUM (test code = NA/ABG) 144 MEQ/L 134-147 N POTASSIUM (test code = K/ABG) 3.7 MEQ/L 3.4-5.0 N CHLORIDE (test code = CL/ABG) 99 MEQ/L 100-108 L CREATININE ABG (test code = 1.2 mg/dL 0.6-1.0 H CREAABG) POC IONIZED CALCIUM (test code = 1.31 MMOL/L 1.12-1.32 N POCCA) POC GLUCOSE (test code = POCGLU) 189 MG/DL 70-110 H HEMOGLOBIN [id number] 03:32:00 Test Item Value Reference Range Interpretation Comments HEMOGLOBIN ABG (test code = HGB/ABG) 8.6 G/DL 11.0-15.0 L [id number] 03:32:00 Test Item Value Reference Range Interpretation Comments HEMATOCRIT (test code = HCT/ABG) 25 % 33.0-45.0 L POC LACTIC [id number] 03:32:00 Test Item Value Reference Range Interpretation Comments POC LACTIC ACID (test code = 0.6 mmol/l 0.9-1.7 L POCLAC) GLUCOSE [id number] 00:03:00 Test Item Value Reference Range Interpretation Comments GLUCOSE BEDSIDE (test 181 MG/DL 70-110 H Perfor med by certified code = GLUBED) 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[facility] - XR CHEST 1 [id number] 00:00:00 [facility] : 1945 Sex: F FAX:Jeffry Pennington MD [phone] [place]: [address]: ADM FAX: Abdiaziz Christiansen MD [phone] FAX: Solange Sawyer MD [phone] FAX: Colt Aguillon MD [phone] Name: SAÚL GILES [facility] : 1945 Age/S: 76/F [address] [place] [address] Unit #: [id number] Loc: [id number] [place] [id number] Phys: Solange Mohamud MD Acct: [id number] Dis Date: Status: ADM IN PHONE #: [phone] Exam Date: 12/26/2021611 FAX #: [phone] Reason: DAILY EVAL POST OP MVR EXAMS: CPT CODE: [id number] XR CHEST 1 V [id number] PROCEDURE INFORMATION: Exam: XR Chest Exam date and time: 12/26/2021 5:19 AM Age: 76 years old Clinical indication: Other: Daily eval post op mvr TECHNIQUE: Imaging protocol: Radiologic exam of the chest. Views: 1 view. COMPARISON: CR XR CHEST 1V 12/25/2021 5:34 AM IMPRESSION: 1. The right IJ central line is unchanged. Intracardiac pacer leads are grossly unchanged. 2. There is grossly stable central pulmonary vascular congestion. 3. Allowing for differences in lung volumes, there is grossly no significant interval change in generalized right pulmonary opacification. 4. There are suspected bilateral pleural effusions. No pneumothorax is visible. at 0686 Reported and signed by: Bill Kern M.D. CC: Jeffry Hsu MD; Abdiaziz Fuchs MD; Solange Mohamud MD; Colt Vail MD Technologist: Hali Leon, RT(R[facility] Date/Time/By: 12/26/2021 (0643) : By: [email or web address] Orig Print D/T: S: 12/26/2021 (0665) PAGE 1 Signed ReportBASIC METABOLIC [id number] 20:47:00 Test Item Value Reference Range Interpretation Comments SODIUM (test code = NA) 145 mEq/L 134-147 N POTASSIUM (test code = 3.6 mEq/L 3.4-5.0 N K) CHLORIDE (test code = 101 mEq/L 100-108 N CL) CARBON DIOXIDE (test 38 mEq/l 21-33 H code = CO2) ANION GAP (test code = 9 0-20 N GAP) GLUCOSE (test code = 235 mg/dL 70-110 H GLU) BLOOD UREA NITROGEN 57 mg/dL 7-18 H (test code = BUN) GLOMERULAR FILTRATION 53.6 70-80 L Units of measure = RATE (test code = GFR) ml/mi n/1.73 m2 CREATININE (test code = 1.0 mg/dL 0.6-1.3 N CREAT) CALCIUM (test code = 10.2 mg/dL 8.0-10.5 N CA) [id number] 20:47:00 Test Item Value Reference Range Interpretation Comments MAGNESIUM (test code = MAG) 2.16 mg/dL 1.80-2.40 N POC ARTERIAL BLOOD [id number] 20:19:00 Test Item Value Reference Range Interpretation Comments POC ARTERIAL BLOOD GAS PH (test 7.378 7.35-7.45 N code = POCPHA) POC ARTERIAL BLOOD GAS PCO2 (test 64.8 mmHg 35.0-45 HH code = HJQZAF5R) POC TCO2 ARTERIAL (test code = 40.3 POCTCO2) POC ARTERIAL BLOOD GAS PO2 (test 86.4 mmHg 80-100.0 N code = XBUDB2K) POC HCO3 ARTERIAL (test code = 38.3 MMOL/L 22.0-26.0 HH IDXOCP4D) POC BASE EXCESS (test code = 13.1 MMOL/L -4.0-4.0 H POCBEA) POC O2 SATURATION (test code = 96.1 % 90-100 N POCO2S) ABG DELIVERY (test code = MAAME) HFDC ABG TEMPERATURE (test code = 97.9 F TEMPA) ABG SITE (test code = SITEA) Art [employer] BASIC METABOLIC [id number] 20:19:00 Test Item Value Reference Range Interpretation Comments SODIUM (test code = NA/ABG) 142 MEQ/L 134-147 N POTASSIUM (test code = K/ABG) 3.5 MEQ/L 3.4-5.0 N CHLORIDE (test code = CL/ABG) 98 MEQ/L 100-108 L CREATININE ABG (test code = 1.0 mg/dL 0.6-1.0 N CREAABG) POC IONIZED CALCIUM (test code = 1.32 MMOL/L 1.12-1.32 N POCCA) POC GLUCOSE (test code = POCGLU) 221 MG/DL 70-110 H HEMOGLOBIN [id number] 20:19:00 Test Item Value Reference Range Interpretation Comments HEMOGLOBIN ABG (test code = HGB/ABG) 8.2 G/DL 11.0-15.0 L [id number] 20:19:00 Test Item Value Reference Range Interpretation Comments HEMATOCRIT (test code = HCT/ABG) 24 % 33.0-45.0 L POC LACTIC [id number] 20:19:00 Test Item Value Reference Range Interpretation Comments POC LACTIC ACID (test code = 0.7 mmol/l 0.9-1.7 L POCLAC) GLUCOSE [id number] 18:32:00 Test Item Value Reference Range Interpretation Comments GLUCOSE BEDSIDE (test 235 MG/DL 70-110 H Perfor med by certified code = GLUBED) 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 [id number] 16:07:00 Test Item Value Reference Range Interpretation Comments SODIUM (test code = NA) 146 mEq/L 134-147 N POTASSIUM (test code = 3.8 mEq/L 3.4-5.0 N K) CHLORIDE (test code = 100 mEq/L 100-108 N CL) CARBON DIOXIDE (test 40 mEq/l 21-33 H code = CO2) ANION GAP (test code = 10 0-20 N GAP) GLUCOSE (test code = 153 mg/dL 70-110 H GLU) BLOOD UREA NITROGEN 60 mg/dL 7-18 H (test code = BUN) GLOMERULAR FILTRATION 53.6 70-80 L Units of measure = RATE (test code = GFR) ml/mi n/1.73 m2 CREATININE (test code = 1.0 mg/dL 0.6-1.3 N CREAT) CALCIUM (test code = 10.6 mg/dL 8.0-10.5 H CA) [id number] 16:07:00 Test Item Value Reference Range Interpretation Comments PHOSPHOROUS (test code = PHOS) 2.9 MG/DL 2.5-4.9 N [id number] 16:07:00 Test Item Value Reference Range Interpretation Comments MAGNESIUM (test code = MAG) 2.26 mg/dL 1.80-2.40 N GLUCOSE [id number] 15:25:00 Test Item Value Reference Range Interpretation Comments GLUCOSE BEDSIDE (test 149 MG/DL 70-110 H [facility] med by certified code = GLUBED) 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[facility] POC ARTERIAL BLOOD [id number] 15:12:00 Test Item Value Reference Range Interpretation Comments POC ARTERIAL BLOOD GAS PH (test 7.364 7.35-7.45 N code = POCPHA) POC ARTERIAL BLOOD GAS PCO2 (test 72.3 mmHg 35.0-45 HH code = OWCDRF2M) POC TCO2 ARTERIAL (test code = 43.4 POCTCO2) POC ARTERIAL BLOOD GAS PO2 (test 82.1 mmHg 80-100.0 N code = VBLQX1P) POC HCO3 ARTERIAL (test code = 41.2 MMOL/L 22.0-26.0 HH WXVSPR2K) POC BASE EXCESS (test code = 15.8 MMOL/L -4.0-4.0 H POCBEA) POC O2 SATURATION (test code = 94.9 % 90-100 N POCO2S) ABG DELIVERY (test code = MAAME) HFJV ABG SITE (test code = SITEA) Art Line BASIC METABOLIC [id number] 15:12:00 Test Item Value Reference Range Interpretation Comments SODIUM (test code = NA/ABG) 146 MEQ/L 134-147 N POTASSIUM (test code = K/ABG) 3.7 MEQ/L 3.4-5.0 N CHLORIDE (test code = CL/ABG) 97 MEQ/L 100-108 L CREATININE ABG (test code = 1.2 mg/dL 0.6-1.0 H CREAABG) POC IONIZED CALCIUM (test code = 1.36 MMOL/L 1.12-1.32 H POCCA) POC GLUCOSE (test code = POCGLU) 161 MG/DL 70-110 H HEMOGLOBIN [id number] 15:12:00 Test Item Value Reference Range Interpretation Comments HEMOGLOBIN ABG (test code = HGB/ABG) 8.5 G/DL 11.0-15.0 L [id number] 15:12:00 Test Item Value Reference Range Interpretation Comments HEMATOCRIT (test code = HCT/ABG) 25 % 33.0-45.0 L POC LACTIC [id number] 15:12:00 Test Item Value Reference Range Interpretation Comments POC LACTIC ACID (test code = 0.7 mmol/l 0.9-1.7 L POCLAC) BASIC METABOLIC [id number] 12:25:00 Test Item Value Reference Range Interpretation Comments SODIUM (test code = NA) 146 mEq/L 134-147 N POTASSIUM (test code = 3.4 mEq/L 3.4-5.0 N K) CHLORIDE (test code = 100 mEq/L 100-108 N CL) CARBON DIOXIDE (test 40 mEq/l 21-33 H code = CO2) ANION GAP (test code = 10 0-20 N GAP) GLUCOSE (test code = 146 mg/dL 70-110 H GLU) BLOOD UREA NITROGEN 61 mg/dL 7-18 H (test code = BUN) GLOMERULAR FILTRATION 60.6 70-80 L Units of measure = RATE (test code = GFR) ml/mi n/1.73 m2 CREATININE (test code = 0.9 mg/dL 0.6-1.3 N CREAT) CALCIUM (test code = 10.3 mg/dL 8.0-10.5 N CA) [id number] 12:25:00 Test Item Value Reference Range Interpretation Comments PHOSPHOROUS (test code = PHOS) 2.8 MG/DL 2.5-4.9 [id number] 12:25:00 Test Item Value Reference Range Interpretation Comments MAGNESIUM (test code = MAG) 2.29 mg/dL 1.80-2.40 N POC ARTERIAL BLOOD [id number] 11:53:00 Test Item Value Reference Range Interpretation Comments POC ARTERIAL BLOOD GAS PH (test 7.378 7.35-7.45 N code = POCPHA) POC ARTERIAL BLOOD GAS PCO2 67.2 mmHg 35.0-45 HH (test code = ZNDSWA0T) POC TCO2 ARTERIAL (test code = 41.6 POCTCO2) POC ARTERIAL BLOOD GAS PO2 (test 93.9 mmHg 80-100.0 N code = YHSRY1D) POC HCO3 ARTERIAL (test code = 39.6 MMOL/L 22.0-26.0 HH YAXBNI9T) POC BASE EXCESS (test code = 14.4 MMOL/L -4.0-4.0 H POCBEA) POC O2 SATURATION (test code = 96.7 % 90-100 N POCO2S) FIO2 (test code = FIO2A) 45 % PaO2/FiO2 (test code = YGV1JGI3) 208.66 mm/Hg ABG DELIVERY (test code = MAAME) BiPAP ABG SITE (test code = SITEA) Art Line BASIC METABOLIC [id number] 11:53:00 Test Item Value Reference Range Interpretation Comments SODIUM (test code = NA/ABG) 145 MEQ/L 134-147 N POTASSIUM (test code = K/ABG) 3.2 MEQ/L 3.4-5.0 L CHLORIDE (test code = CL/ABG) 98 MEQ/L 100-108 L CREATININE ABG (test code = 1.1 mg/dL 0.6-1.0 H CREAABG) POC IONIZED CALCIUM (test code = 1.35 MMOL/L 1.12-1.32 H POCCA) POC GLUCOSE (test code = POCGLU) 147 MG/DL 70-110 H HEMOGLOBIN [id number] 11:53:00 Test Item Value Reference Range Interpretation Comments HEMOGLOBIN ABG (test code = HGB/ABG) 8.2 G/DL 11.0-15.0 L [id number] 11:53:00 Test Item Value Reference Range Interpretation Comments HEMATOCRIT (test code = HCT/ABG) 24 % 33.0-45.0 L POC LACTIC [id number] 11:53:00 Test Item Value Reference Range Interpretation Comments POC LACTIC ACID (test code = 0.6 mmol/l 0.9-1.7 L POCLAC) POC ARTERIAL BLOOD [id number] 10:55:00 Test Item Value Reference Range Interpretation Comments POC ARTERIAL BLOOD GAS PH (test 7.362 7.35-7.45 N code = POCPHA) POC ARTERIAL BLOOD GAS PCO2 65.6 mmHg 35.0-45 HH (test code = DAVGDG2E) POC TCO2 ARTERIAL (test code = 39.2 POCTCO2) POC ARTERIAL BLOOD GAS PO2 (test 93.1 mmHg 80-100.0 N code = ZFQCP5F) POC HCO3 ARTERIAL (test code = 37.2 MMOL/L 22.0-26.0 HH UBEBYH4N) POC BASE EXCESS (test code = 11.8 MMOL/L -4.0-4.0 H POCBEA) POC O2 SATURATION (test code = 96.5 % 90-100 N POCO2S) FIO2 (test code = FIO2A) 45 % PaO2/FiO2 (test code = RGG0VCW0) 206.88 mm/Hg ABG DELIVERY (test code = MAAME) BiPAP ABG SITE (test code = SITEA) Art Line BASIC METABOLIC [id number] 10:55:00 Test Item Value Reference Range Interpretation Comments SODIUM (test code = NA/ABG) 146 MEQ/L 134-147 N POTASSIUM (test code = K/ABG) 3.3 MEQ/L 3.4-5.0 L CHLORIDE (test code = CL/ABG) 99 MEQ/L 100-108 L CREATININE ABG (test code = 0.9 mg/dL 0.6-1.0 N CREAABG) POC IONIZED CALCIUM (test code = 1.32 MMOL/L 1.12-1.32 N POCCA) POC GLUCOSE (test code = POCGLU) 162 MG/DL 70-110 H HEMOGLOBIN [id number] 10:55:00 Test Item Value Reference Range Interpretation Comments HEMOGLOBIN ABG (test code = HGB/ABG) 8.2 G/DL 11.0-15.0 L [id number] 10:55:00 Test Item Value Reference Range Interpretation Comments HEMATOCRIT (test code = HCT/ABG) 24 % 33.0-45.0 L POC LACTIC [id number] 10:55:00 Test Item Value Reference Range Interpretation Comments POC LACTIC ACID (test code = 0.6 mmol/l 0.9-1.7 L POCLAC) POC ARTERIAL BLOOD [id number] 10:06:00 Test Item Value Reference Range Interpretation Comments POC ARTERIAL BLOOD GAS PH (test 7.348 7.35-7.45 L code = POCPHA) POC ARTERIAL BLOOD GAS PCO2 71.0 mmHg 35.0-45 HH (test code = [id number]) POC TCO2 ARTERIAL (test code = 41.2 POCTCO2) POC ARTERIAL BLOOD GAS PO2 (test 92.3 mmHg 80-100.0 N code = WNEYV5Z) POC HCO3 ARTERIAL (test code = 39.0 MMOL/L 22.0-26.0 HH [id number]) POC BASE EXCESS (test code = 13.4 MMOL/L -4.0-4.0 H POCBEA) POC O2 SATURATION (test code = 96.2 % 90-100 N POCO2S) FIO2 (test code = FIO2A) 75 % PaO2/FiO2 (test code = [id number]) 123.06 mm/Hg ABG DELIVERY (test code = MAAME) HFNC ABG SITE (test code = SITEA) Art Line BASIC METABOLIC [id number] 10:06:00 Test Item Value Reference Range Interpretation Comments SODIUM (test code = NA/ABG) 145 MEQ/L 134-147 N POTASSIUM (test code = K/ABG) 3.4 MEQ/L 3.4-5.0 N CHLORIDE (test code = CL/ABG) 99 MEQ/L 100-108 L CREATININE ABG (test code = 1.1 mg/dL 0.6-1.0 H CREAABG) POC IONIZED CALCIUM (test code = 1.37 MMOL/L 1.12-1.32 H POCCA) POC GLUCOSE (test code = POCGLU) 192 MG/DL 70-110 H HEMOGLOBIN [id number] 10:06:00 Test Item Value Reference Range Interpretation Comments HEMOGLOBIN ABG (test code = HGB/ABG) 9.0 G/DL 11.0-15.0 L [id number] 10:06:00 Test Item Value Reference Range Interpretation Comments HEMATOCRIT (test code = HCT/ABG) 26 % 33.0-45.0 L POC LACTIC [id number] 10:06:00 Test Item Value Reference Range Interpretation Comments POC LACTIC ACID (test code = 0.7 mmol/l 0.9-1.7 L POCLAC) GLUCOSE [id number] 07:57:00 Test Item Value Reference Range Interpretation Comments GLUCOSE BEDSIDE (test 229 MG/DL 70-110 H Perfor med by certified code = GLUBED) 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[facility] COMPREHENSIVE METABOLIC [id number] 04:18:00 Test Item Value Reference Range Interpretation Comments SODIUM (test code = NA) 145 mEq/L 134-147 N POTASSIUM (test code = 3.6 mEq/L 3.4-5.0 N K) CHLORIDE (test code = 102 mEq/L 100-108 N CL) CARBON DIOXIDE (test 38 mEq/l 21-33 H code = CO2) ANION GAP (test code = 9 0-20 N GAP) GLUCOSE (test code = 218 mg/dL 70-110 H GLU) BLOOD UREA NITROGEN 62 mg/dL 7-18 H (test code = BUN) GLOMERULAR FILTRATION 53.6 70-80 L Units of measure = RATE (test code = GFR) ml/mi n/1.73 m2 CREATININE (test code = 1.0 mg/dL 0.6-1.3 N CREAT) TOTAL PROTEIN (test 6.8 g/dL 6.4-8.2 N code = PROT) ALBUMIN (test code = 3.90 g/dL 3.4-5.0 N ALB) CALCIUM (test code = 10.2 mg/dL 8.0-10.5 N CA) BILIRUBIN TOTAL (test 0.70 mg/dL 0.0-1.0 code = BILT) SGOT/AST (test code = 17 IUnit/L 15-37 N AST) SGPT/ALT (test code = 16 IUnit/L 30-65 L ALT) ALKALINE PHOSPHATASE 73 IUnit/L 20-125 N TOTAL (test code = ALKP) [id number] 04:18:00 Test Item Value Reference Range Interpretation Comments PHOSPHOROUS (test code = PHOS) 1.0 MG/DL 2.5-4.9 L [id number] 04:18:00 Test Item Value Reference Range Interpretation Comments MAGNESIUM (test code = MAG) 2.25 mg/dL 1.80-2.40 N CBC W/AUTO [id number] 04:04:00 Test Item Value Reference Range Interpretation Comments WHITE BLOOD CELL (test code = 6.5 x10 3/uL 4.5-11.0 N WBC) RED BLOOD CELL (test code = 2.29 x10 6/uL 3.54-5.02 L RBC) HEMOGLOBIN (test code = HGB) 8.1 g/dL 11.0-15.0 L HEMATOCRIT (test code = HCT) 24.8 % 33.0-45.0 L MEAN CELL VOLUME (test code = 108.3 fL 81.0-99.0 H MCV) MEAN CELL HGB (test code = MCH) 35.4 pg 27.0-33.0 H MEAN CELL HGB CONCETRATION 32.7 g/dL 33.0-37.0 L (test code = MCHC) RED CELL DISTRIBUTION WIDTH CV 15.9 % 11.5-14.5 H (test code = RDW) RED CELL DISTRIBUTION WIDTH SD 63.7 fL 37.0-54.0 H (test code = RDW-SD) PLATELET COUNT (test code = 146 x10 3/uL 150-400 L PLT) MEAN PLATELET VOLUME (test code 11.3 fL 7.0-9.0 H = MPV) NEUTROPHIL % (test code = NT%) 77.4 % 56.0-77.0 H IMMATURE GRANULOCYTE % (test 2.2 % 0.0-2.0 H code = IG%) LYMPHOCYTE % (test code = LY%) 4.6 % 14.0-32.0 L MONOCYTE % (test code = MO%) 13.8 % 4.8-9.0 H EOSINOPHIL % (test code = EO%) 1.7 % 0.3-3.7 N BASOPHIL % (test code = BA%) 0.3 % 0.0-2.0 N NUCLEATED RBC % (test code = 2.2 % 0-0 H NRBC%) NEUTROPHIL # (test code = NT#) 5.04 x10 3/uL 2.0-7.6 N IMMATURE GRANULOCYTE # (test 0.14 x10 3/uL 0.00-0.03 H code = IG#) LYMPHOCYTE # (test code = LY#) 0.30 x10 3/uL 1.0-3.8 L MONOCYTE # (test code = MO#) 0.90 x10 3/uL 0.1-0.8 H EOSINOPHIL # (test code = EO#) 0.11 x10 3/uL 0.0-0.2 N BASOPHIL # (test code = BA#) 0.02 x10 3/uL 0.0-0.2 N NUCLEATED RBC # (test code = 0.14 x10 3/uL 0.0-0.1 H NRBC#) MANUAL DIFF REQUIRED (test code NO = MDIFF) POC ARTERIAL BLOOD [id number] 03:55:00 Test Item Value Reference Range Interpretation Comments POC ARTERIAL BLOOD GAS PH (test 7.393 7.35-7.45 N code = POCPHA) POC ARTERIAL BLOOD GAS PCO2 (test 67.7 mmHg 35.0-45 HH code = [id number]) POC TCO2 ARTERIAL (test code = 43.5 POCTCO2) POC ARTERIAL BLOOD GAS PO2 (test 73.0 mmHg 80-100.0 L code = XAMTH0D) POC HCO3 ARTERIAL (test code = 41.4 MMOL/L 22.0-26.0 HH [id number]) POC BASE EXCESS (test code = 16.4 MMOL/L -4.0-4.0 H POCBEA) POC O2 SATURATION (test code = 93.8 % 90-100 N POCO2S) FIO2 (test code = FIO2A) 75 % PaO2/FiO2 (test code = [id number]) 97.33 mm/Hg ABG DELIVERY (test code = MAAME) HFNC ABG TEMPERATURE (test code = 98 F TEMPA) ABG SITE (test code = SITEA) Art Line MARTIN'S TEST (test code = ALLENS) N/A BASIC METABOLIC [id number] 03:55:00 Test Item Value Reference Range Interpretation Comments SODIUM (test code = NA/ABG) 145 MEQ/L 134-147 N POTASSIUM (test code = K/ABG) 3.5 MEQ/L 3.4-5.0 N CHLORIDE (test code = CL/ABG) 97 MEQ/L 100-108 L CREATININE ABG (test code = 1.2 mg/dL 0.6-1.0 H CREAABG) POC IONIZED CALCIUM (test code = 1.38 MMOL/L 1.12-1.32 H POCCA) POC GLUCOSE (test code = POCGLU) 236 MG/DL 70-110 H HEMOGLOBIN [id number] 03:55:00 Test Item Value Reference Range Interpretation Comments HEMOGLOBIN ABG (test code = HGB/ABG) 8.5 G/DL 11.0-15.0 L [id number] 03:55:00 Test Item Value Reference Range Interpretation Comments HEMATOCRIT (test code = HCT/ABG) 25 % 33.0-45.0 L POC LACTIC [id number] 03:55:00 Test Item Value Reference Range Interpretation Comments POC LACTIC ACID (test code = 0.6 mmol/l 0.9-1.7 L POCLAC) GLUCOSE [id number] 02:46:00 Test Item Value Reference Range Interpretation Comments GLUCOSE BEDSIDE (test 209 MG/DL 70-110 H Perfor med by certified code = GLUBED) 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 [facility] 1945 Sex: F FAX:Jeffry Pennington MD [phone] [place]: St: ADM FAX: Abdiaziz Christiansen MD [phone] FAX: René Blancas [phone] FAX: Colt Aguillon MD [phone] Name: SAÚL GILES [facility] : 1945 Age/S: 76/F [address] [place] [address] Unit #: [id number] Loc: VLADIMIR [place] [address] Phys: René Villareal MD Acct: [id number] Dis Date: Status: ADM IN PHONE #: [phone] Exam Date: 12/25/2021 0701 FAX #: [phone] Reason: Cardiac Surgery Post Op EXAMS: CPT CODE: [id number] XR CHEST 1 V [id number] INFORMATION: Exam: XR Chest Exam date and time: 12/25/2021 5:34 AM Age: 76 years old Clinical indication: Other: Cardiac surgery post op TECHNIQUE: Imaging protocol: Radiologic exam of the chest. Views: 1 view. COMPARISON: CR XR CHEST 1V 12/24/2021 4:53 AM FINDINGS: Tubes, catheters and devices: Left pectoral implantable cardiac device. Right neck vascular sheath. Lungs: Bilateral lung opacities have not significantly changed. Pleural spaces: No pneumothorax. Likely bilateral pleural effusions. Heart/Mediastinum: The heart size is stable. 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 Prosthetic cardiac valve. Bones/joints: Stable. IMPRESSION: No significant change. at 0755 Reported and signed by: Hardik Montanez M.D. 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 [id number] 21:02:00 Test Item Value Reference Range Interpretation Comments SODIUM (test code = NA) 147 mEq/L 134-147 N POTASSIUM (test code = 3.5 mEq/L 3.4-5.0 N K) CHLORIDE (test code = 106 mEq/L 100-108 N CL) CARBON DIOXIDE (test 37 mEq/l 21-33 H code = CO2) ANION GAP (test code = 7 0-20 N GAP) GLUCOSE (test code = 117 mg/dL 70-110 H GLU) BLOOD UREA NITROGEN 57 mg/dL 7-18 H (test code = BUN) GLOMERULAR FILTRATION 60.6 70-80 L Units of measure = RATE (test code = GFR) ml/mi n/1.73 m2 CREATININE (test code = 0.9 mg/dL 0.6-1.3 N CREAT) CALCIUM (test code = 9.9 mg/dL 8.0-10.5 N CA) POC ARTERIAL BLOOD [id number] 20:05:00 Test Item Value Reference Range Interpretation Comments POC ARTERIAL BLOOD GAS PH (test 7.358 7.35-7.45 N code = POCPHA) POC ARTERIAL BLOOD GAS PCO2 61.0 mmHg 35.0-45 HH (test code = SUPABP2H) POC TCO2 ARTERIAL (test code = 36.3 POCTCO2) POC ARTERIAL BLOOD GAS PO2 (test 89.1 mmHg 80-100.0 N code = ORSAL3C) POC HCO3 ARTERIAL (test code = 34.4 MMOL/L 22.0-26.0 HH HFJQBT5H) POC BASE EXCESS (test code = 8.9 MMOL/L -4.0-4.0 H POCBEA) POC O2 SATURATION (test code = 96.2 % 90-100 N POCO2S) FIO2 (test code = FIO2A) 50 % PaO2/FiO2 (test code = [id number]) 178.20 mm/Hg ABG DELIVERY (test code = MAAME) BiPAP ABG VENT MODE (test code = BiLevel MODEA) ABG VENT RESP RATE (test code = 26 /MIN RRA) ABG PEEP (test code = PEEPA) 10 cmH2O ABG PRESSURE SUPPORT (test code 18 cmH2O = PSABG) ABG TEMPERATURE (test code = 98.1 F TEMPA) ABG SITE (test code = SITEA) Art Line MARTIN'S TEST (test code = Positive ALLENS) BASIC METABOLIC [id number] 20:05:00 Test Item Value Reference Range Interpretation Comments SODIUM (test code = NA/ABG) 150 MEQ/L 134-147 H POTASSIUM (test code = K/ABG) 2.9 MEQ/L 3.4-5.0 L CHLORIDE (test code = CL/ABG) 108 MEQ/L 100-108 N CREATININE ABG (test code = 0.8 mg/dL 0.6-1.0 CREAABG) POC IONIZED CALCIUM (test code = 1.29 MMOL/L 1.12-1.32 N POCCA) POC GLUCOSE (test code = POCGLU) 110 MG/DL 70-110 N HEMOGLOBIN [id number] 20:05:00 Test Item Value Reference Range Interpretation Comments HEMOGLOBIN ABG (test code = HGB/ABG) 7.2 G/DL 11.0-15.0 L [id number] 20:05:00 Test Item Value Reference Range Interpretation Comments HEMATOCRIT (test code = HCT/ABG) 21 % 33.0-45.0 L POC LACTIC [id number] 20:05:00 Test Item Value Reference Range Interpretation Comments POC LACTIC ACID (test code = 0.6 mmol/l 0.9-1.7 L POCLAC) GLUCOSE [id number] 18:28:00 Test Item Value Reference Range Interpretation Comments GLUCOSE BEDSIDE (test 139 MG/DL 70-110 H Perfor med by certified code = GLUBED) 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[facility] POC ARTERIAL BLOOD [id number] 18:12:00 Test Item Value Reference Range Interpretation Comments POC ARTERIAL BLOOD GAS PH (test 7.381 7.35-7.45 N code = POCPHA) POC ARTERIAL BLOOD GAS PCO2 64.5 mmHg 35.0-45 HH (test code = CJMRUC8P) POC TCO2 ARTERIAL (test code = 40.3 POCTCO2) POC ARTERIAL BLOOD GAS PO2 (test 81.9 mmHg 80-100.0 N code = JORES2T) POC HCO3 ARTERIAL (test code = 38.3 MMOL/L 22.0-26.0 HH [id number]) POC BASE EXCESS (test code = 13.1 MMOL/L -4.0-4.0 H POCBEA) POC O2 SATURATION (test code = 95.5 % 90-100 N POCO2S) FIO2 (test code = FIO2A) 50 % PaO2/FiO2 (test code = EQU5HUW6) 163.80 mm/Hg ABG DELIVERY (test code = MAAME) BiPAP ABG VENT RESP RATE (test code = 18 /MIN RRA) ABG PEEP (test code = PEEPA) 10 cmH2O ABG TEMPERATURE (test code = 97.9 F TEMPA) ABG SITE (test code = SITEA) Art Line MARTIN'S TEST (test code = N/A ALLENS) BASIC METABOLIC [id number] 18:12:00 Test Item Value Reference Range Interpretation Comments SODIUM (test code = NA/ABG) 149 MEQ/L 134-147 H POTASSIUM (test code = K/ABG) 3.4 MEQ/L 3.4-5.0 N CHLORIDE (test code = CL/ABG) 102 MEQ/L 100-108 N CREATININE ABG (test code = 1.2 mg/dL 0.6-1.0 H CREAABG) POC IONIZED CALCIUM (test code = 1.41 MMOL/L 1.12-1.32 H POCCA) POC GLUCOSE (test code = POCGLU) 150 MG/DL 70-110 H HEMOGLOBIN [id number] 18:12:00 Test Item Value Reference Range Interpretation Comments HEMOGLOBIN ABG (test code = HGB/ABG) 8.6 G/DL 11.0-15.0 L [id number] 18:12:00 Test Item Value Reference Range Interpretation Comments HEMATOCRIT (test code = HCT/ABG) 25 % 33.0-45.0 L POC LACTIC [id number] 18:12:00 Test Item Value Reference Range Interpretation Comments POC LACTIC ACID (test code = 0.7 mmol/l 0.9-1.7 L POCLAC) GLUCOSE [id number] 17:05:00 Test Item Value Reference Range Interpretation Comments GLUCOSE BEDSIDE (test 170 MG/DL 70-110 H [facility] med by certified code = GLUBED) 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 [id number] 14:48:00 Test Item Value Reference Range Interpretation Comments SODIUM (test code = NA) 145 mEq/L 134-147 N POTASSIUM (test code = 3.8 mEq/L 3.4-5.0 N K) CHLORIDE (test code = 102 mEq/L 100-108 N CL) CARBON DIOXIDE (test 37 mEq/l 21-33 H code = CO2) ANION GAP (test code = 10 0-20 N GAP) GLUCOSE (test code = 246 mg/dL 70-110 H GLU) BLOOD UREA NITROGEN 64 mg/dL 7-18 H (test code = BUN) GLOMERULAR FILTRATION 48.0 70-80 L Units of measure = RATE (test code = GFR) ml/mi n/1.73 m2 CREATININE (test code = 1.1 mg/dL 0.6-1.3 N CREAT) CALCIUM (test code = 10.4 mg/dL 8.0-10.5 N CA) [id number] 14:48:00 Test Item Value Reference Range Interpretation Comments MAGNESIUM (test code = MAG) 2.40 mg/dL 1.80-2.40 N GLUCOSE [id number] 14:41:00 Test Item Value Reference Range Interpretation Comments GLUCOSE BEDSIDE (test 233 MG/DL 70-110 H [facility] med by certified code = GLUBED) 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[facility] POC ARTERIAL BLOOD [id number] 14:21:00 Test Item Value Reference Range Interpretation Comments POC ARTERIAL BLOOD GAS PH (test 7.346 7.35-7.45 L code = POCPHA) POC ARTERIAL BLOOD GAS PCO2 63.5 mmHg 35.0-45 HH (test code = UXYWCD0V) POC TCO2 ARTERIAL (test code = 36.8 POCTCO2) POC ARTERIAL BLOOD GAS PO2 (test 74.6 mmHg 80-100.0 L code = HYZJE3J) POC HCO3 ARTERIAL (test code = 34.8 MMOL/L 22.0-26.0 HH UDZAKB5O) POC BASE EXCESS (test code = 9.1 MMOL/L -4.0-4.0 H POCBEA) POC O2 SATURATION (test code = 93.5 % 90-100 N POCO2S) FIO2 (test code = FIO2A) 50 % PaO2/FiO2 (test code = DIW2DNM5) 149.20 mm/Hg ABG DELIVERY (test code = MAAME) BiPAP ABG TIDAL VOLUME (test code = 18 ml TVA) ABG PEEP (test code = PEEPA) 10 cmH2O ABG TEMPERATURE (test code = 98.2 F TEMPA) ABG SITE (test code = SITEA) Art Line MARTIN'S TEST (test code = N/A ALLENS) BASIC METABOLIC [id number] 14:21:00 Test Item Value Reference Range Interpretation Comments SODIUM (test code = NA/ABG) 145 MEQ/L 134-147 N POTASSIUM (test code = K/ABG) 3.7 MEQ/L 3.4-5.0 N CHLORIDE (test code = CL/ABG) 100 MEQ/L 100-108 N CREATININE ABG (test code = 1.1 mg/dL 0.6-1.0 H CREAABG) POC IONIZED CALCIUM (test code = 1.34 MMOL/L 1.12-1.32 H POCCA) POC GLUCOSE (test code = POCGLU) 237 MG/DL 70-110 H HEMOGLOBIN [id number] 14:21:00 Test Item Value Reference Range Interpretation Comments HEMOGLOBIN ABG (test code = HGB/ABG) 8.1 G/DL 11.0-15.0 L [id number] 14:21:00 Test Item Value Reference Range Interpretation Comments HEMATOCRIT (test code = HCT/ABG) 24 % 33.0-45.0 L POC LACTIC [id number] 14:21:00 Test Item Value Reference Range Interpretation Comments POC LACTIC ACID (test code = 1.2 mmol/l 0.9-1.7 N POCLAC) POC ARTERIAL BLOOD [id number] 11:49:00 Test Item Value Reference Range Interpretation Comments POC ARTERIAL BLOOD GAS PH (test 7.348 7.35-7.45 L code = POCPHA) POC ARTERIAL BLOOD GAS PCO2 69.3 mmHg 35.0-45 HH (test code = FASLNE5B) POC TCO2 ARTERIAL (test code = 40.0 POCTCO2) POC ARTERIAL BLOOD GAS PO2 (test 91.0 mmHg 80-100.0 N code = INWON4D) POC HCO3 ARTERIAL (test code = 37.9 MMOL/L 22.0-26.0 HH FNISOI1C) POC BASE EXCESS (test code = 12.3 MMOL/L -4.0-4.0 H POCBEA) POC O2 SATURATION (test code = 96.0 % 90-100 N POCO2S) FIO2 (test code = FIO2A) 60 % PaO2/FiO2 (test code = ZTK1QIG5) 151.66 mm/Hg ABG DELIVERY (test code = MAAME) BiPAP ABG PEEP (test code = PEEPA) 8 cmH2O ABG PRESSURE SUPPORT (test code 14 cmH2O = PSABG) ABG TEMPERATURE (test code = 99 F TEMPA) ABG SITE (test code = SITEA) Art Line BASIC METABOLIC [id number] 11:49:00 Test Item Value Reference Range Interpretation Comments SODIUM (test code = NA/ABG) 149 MEQ/L 134-147 H POTASSIUM (test code = K/ABG) 3.1 MEQ/L 3.4-5.0 L CHLORIDE (test code = CL/ABG) 102 MEQ/L 100-108 N CREATININE ABG (test code = 1.0 mg/dL 0.6-1.0 N CREAABG) POC IONIZED CALCIUM (test code = 1.39 MMOL/L 1.12-1.32 H POCCA) POC GLUCOSE (test code = POCGLU) 185 MG/DL 70-110 H HEMOGLOBIN [id number] 11:49:00 Test Item Value Reference Range Interpretation Comments HEMOGLOBIN ABG (test code = HGB/ABG) 8.7 G/DL 11.0-15.0 L [id number] 11:49:00 Test Item Value Reference Range Interpretation Comments HEMATOCRIT (test code = HCT/ABG) 26 % 33.0-45.0 L POC LACTIC [id number] 11:49:00 Test Item Value Reference Range Interpretation Comments POC LACTIC ACID (test code = 0.7 mmol/l 0.9-1.7 L POCLAC) GLUCOSE [id number] 09:32:00 Test Item Value Reference Range Interpretation Comments GLUCOSE BEDSIDE (test 143 MG/DL 70-110 H Perfor med by certified code = GLUBED) 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[facility] POC ARTERIAL BLOOD [id number] 09:21:00 Test Item Value Reference Range Interpretation Comments POC ARTERIAL BLOOD GAS PH (test 7.376 7.35-7.45 N code = POCPHA) POC ARTERIAL BLOOD GAS PCO2 65.5 mmHg 35.0-45 HH (test code = CUXZTC0L) POC TCO2 ARTERIAL (test code = 40.5 POCTCO2) POC ARTERIAL BLOOD GAS PO2 (test 84.5 mmHg 80-100.0 N code = BVEXY1X) POC HCO3 ARTERIAL (test code = 38.5 MMOL/L 22.0-26.0 HH BRYVLT7I) POC BASE EXCESS (test code = 13.2 MMOL/L -4.0-4.0 H POCBEA) POC O2 SATURATION (test code = 95.7 % 90-100 N POCO2S) FIO2 (test code = FIO2A) 70 % PaO2/FiO2 (test code = OXO8OEL3) 120.71 mm/Hg ABG DELIVERY (test code = MAAME) BiPAP ABG TIDAL VOLUME (test code = 14 ml TVA) ABG PEEP (test code = PEEPA) 8 cmH2O ABG TEMPERATURE (test code = 98.1 F TEMPA) ABG SITE (test code = SITEA) Art Line MARTIN'S TEST (test code = N/A ALLENS) BASIC METABOLIC [id number] 09:21:00 Test Item Value Reference Range Interpretation Comments SODIUM (test code = NA/ABG) 149 MEQ/L 134-147 H POTASSIUM (test code = K/ABG) 3.2 MEQ/L 3.4-5.0 L CHLORIDE (test code = CL/ABG) 102 MEQ/L 100-108 N CREATININE ABG (test code = 1.2 mg/dL 0.6-1.0 H CREAABG) POC IONIZED CALCIUM (test code = 1.38 MMOL/L 1.12-1.32 H POCCA) POC GLUCOSE (test code = POCGLU) 157 MG/DL 70-110 H HEMOGLOBIN [id number] 09:21:00 Test Item Value Reference Range Interpretation Comments HEMOGLOBIN ABG (test code = HGB/ABG) 8.9 G/DL 11.0-15.0 L [id number] 09:21:00 Test Item Value Reference Range Interpretation Comments HEMATOCRIT (test code = HCT/ABG) 26 % 33.0-45.0 L POC LACTIC [id number] 09:21:00 Test Item Value Reference Range Interpretation Comments POC LACTIC ACID (test code = 0.7 mmol/l 0.9-1.7 L POCLAC) GLUCOSE [id number] 07:04:00 Test Item Value Reference Range Interpretation Comments GLUCOSE BEDSIDE (test 142 MG/DL 70-110 H Perfor med by certified code = GLUBED) 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[facility] POC ARTERIAL BLOOD [id number] 05:37:00 Test Item Value Reference Range Interpretation Comments POC ARTERIAL BLOOD GAS PH (test 7.363 7.35-7.45 N code = POCPHA) POC ARTERIAL BLOOD GAS PCO2 (test 64.5 mmHg 35.0-45 HH code = HHHMYF4Y) POC TCO2 ARTERIAL (test code = 38.7 POCTCO2) POC ARTERIAL BLOOD GAS PO2 (test 60.3 mmHg 80-100.0 L code = ZPWSZ9G) POC HCO3 ARTERIAL (test code = 36.8 MMOL/L 22.0-26.0 HH VRGKKQ7J) POC BASE EXCESS (test code = 11.4 MMOL/L -4.0-4.0 H POCBEA) POC O2 SATURATION (test code = 88.7 % 90-100 L POCO2S) FIO2 (test code = FIO2A) 80 % PaO2/FiO2 (test code = EKY1TSW8) 75.37 mm/Hg ABG DELIVERY (test code = MAAME) HFNC ABG TEMPERATURE (test code = 98.6 F TEMPA) ABG SITE (test code = SITEA) R Radial MARTIN'S TEST (test code = ALLENS) Positive BASIC METABOLIC [id number] 05:37:00 Test Item Value Reference Range Interpretation Comments SODIUM (test code = NA/ABG) 146 MEQ/L 134-147 N POTASSIUM (test code = K/ABG) 3.1 MEQ/L 3.4-5.0 L CHLORIDE (test code = CL/ABG) 102 MEQ/L 100-108 N CREATININE ABG (test code = 1.0 mg/dL 0.6-1.0 N CREAABG) POC IONIZED CALCIUM (test code = 1.34 MMOL/L 1.12-1.32 H POCCA) POC GLUCOSE (test code = POCGLU) 170 MG/DL 70-110 H HEMOGLOBIN [id number] 05:37:00 Test Item Value Reference Range Interpretation Comments HEMOGLOBIN ABG (test code = HGB/ABG) 8.3 G/DL 11.0-15.0 L [id number] 05:37:00 Test Item Value Reference Range Interpretation Comments HEMATOCRIT (test code = HCT/ABG) 24 % 33.0-45.0 L POC LACTIC [id number] 05:37:00 Test Item Value Reference Range Interpretation Comments POC LACTIC ACID (test code = 0.8 mmol/l 0.9-1.7 L POCLAC) BASIC METABOLIC [id number] 03:53:00 Test Item Value Reference Range Interpretation Comments SODIUM (test code = NA) 148 mEq/L 134-147 H POTASSIUM (test code = 3.2 mEq/L 3.4-5.0 L K) CHLORIDE (test code = 103 mEq/L 100-108 N CL) CARBON DIOXIDE (test 39 mEq/l 21-33 H code = CO2) ANION GAP (test code = 9 0-20 N GAP) GLUCOSE (test code = 154 mg/dL 70-110 H GLU) BLOOD UREA NITROGEN 60 mg/dL 7-18 H (test code = BUN) GLOMERULAR FILTRATION 53.6 70-80 L Units of measure = RATE (test code = GFR) ml/mi n/1.73 m2 CREATININE (test code = 1.0 mg/dL 0.6-1.3 N CREAT) CALCIUM (test code = 10.8 mg/dL 8.0-10.5 H CA) [id number] 03:53:00 Test Item Value Reference Range Interpretation Comments MAGNESIUM (test code = MAG) 2.31 mg/dL 1.80-2.40 N CBC W/AUTO [id number] 03:35:00 Test Item Value Reference Range Interpretation Comments WHITE BLOOD CELL (test code = 6.3 x10 3/uL 4.5-11.0 N WBC) RED BLOOD CELL (test code = 2.12 x10 6/uL 3.54-5.02 L RBC) HEMOGLOBIN (test code = HGB) 7.8 g/dL 11.0-15.0 L HEMATOCRIT (test code = HCT) 23.7 % 33.0-45.0 L MEAN CELL VOLUME (test code = 111.8 fL 81.0-99.0 H MCV) MEAN CELL HGB (test code = MCH) 36.8 pg 27.0-33.0 H MEAN CELL HGB CONCETRATION 32.9 g/dL 33.0-37.0 L (test code = MCHC) RED CELL DISTRIBUTION WIDTH CV 15.7 % 11.5-14.5 H (test code = RDW) RED CELL DISTRIBUTION WIDTH SD 62.8 fL 37.0-54.0 H (test code = RDW-SD) PLATELET COUNT (test code = 121 x10 3/uL 150-400 L PLT) MEAN PLATELET VOLUME (test code 11.1 fL 7.0-9.0 H = MPV) NEUTROPHIL % (test code = NT%) 82.8 % 56.0-77.0 H IMMATURE GRANULOCYTE % (test 1.9 % 0.0-2.0 N code = IG%) LYMPHOCYTE % (test code = LY%) 2.7 % 14.0-32.0 L MONOCYTE % (test code = MO%) 11.4 % 4.8-9.0 H EOSINOPHIL % (test code = EO%) 1.0 % 0.3-3.7 N BASOPHIL % (test code = BA%) 0.2 % 0.0-2.0 N NUCLEATED RBC % (test code = 2.7 % 0-0 H NRBC%) NEUTROPHIL # (test code = NT#) 5.21 x10 3/uL 2.0-7.6 N IMMATURE GRANULOCYTE # (test 0.12 x10 3/uL 0.00-0.03 H code = IG#) LYMPHOCYTE # (test code = LY#) 0.17 x10 3/uL 1.0-3.8 L MONOCYTE # (test code = MO#) 0.72 x10 3/uL 0.1-0.8 N EOSINOPHIL # (test code = EO#) 0.06 x10 3/uL 0.0-0.2 N BASOPHIL # (test code = BA#) 0.01 x10 3/uL 0.0-0.2 N NUCLEATED RBC # (test code = 0.17 x10 3/uL 0.0-0.1 H NRBC#) MANUAL DIFF REQUIRED (test code NO = MDIFF) - XR CHEST 1 [id number] 00:00:00 [facility] : 1945 Sex: F FAX: Jeffry Pennington MD [phone] [place]: St: ADM FAX: Abdiaziz Christiansen MD [phone] FAX: René Blancas [phone] FAX: Colt Aguillon MD [phone] Name: SAÚL GILES [facility] : 1945 Age/S: 76/F [address] [place] [address] Unit #: [id number] Loc: G.2205 [place] [address] Phys: René Villareal MD Acct: [id number] Dis Date: Status: ADM IN PHONE #: [phone] Exam Date: 12/24/2021630 FAX #: [phone] Reason: Cardiac Surgery Post Op EXAMS: CPT CODE: [id number] XR CHEST 1 V 22195 PROCEDURE INFORMATION: Exam: XR Chest Exam date and time: 12/24/2021 4:53 AM Age: 76 years old Clinical indication: Other: Cardiac surgery post op TECHNIQUE: Imaging protocol: Radiologic exam of the chest. Views: 1 view. COMPARISON: CR XR CHEST 1V 12/23/2021 5:07 AM FINDINGS: Tubes, catheters and devices: Right IJ sheath in place. EKG leads overlie the chest. Pacemaker/ICD leads are stable. Mitral valve prosthesis is stable. Lungs: Ill- defined opacities bilateral with central lung zone predominance. Retrocardiac opacification obscuring the hemidiaphragm is unchanged. The right hemidiaphragm is partially obscured. Pleural spaces: There is no pneumothorax. Bilateral pleural effusions with larger layering component on the right grossly stable. Small volume of fluid tracking into the minor fissure.Heart/Mediastinum: Moderate prominence of the cardiomediastinal silhouette is stable allowing for differences in patient projection/rotation. The pulmonary vasculature is ill- defined. Bones/joints: Sternotomy wires are intact. IMPRESSION: 1. Stable postoperative chest. 2. Bilateral pulmonary opacities with central lung zone predominance compatible with edema. Inflammation in the differential. Retroca rdiac atelectasis versus consolidation. 3. Right greater than left pleural effusions. at 0926 Reported and signed by: Jasmeet Carlisle M.D. 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 [id number] 21:26:00 Test Item Value Reference Range Interpretation Comments SODIUM (test code = NA/ABG) 147 MEQ/L 134-147 N POTASSIUM (test code = K/ABG) 3.2 MEQ/L 3.4-5.0 L CHLORIDE (test code = CL/ABG) 101 MEQ/L 100-108 N CREATININE ABG (test code = 1.2 mg/dL 0.6-1.0 H CREAABG) POC IONIZED CALCIUM (test code = 1.38 MMOL/L 1.12-1.32 H POCCA) POC GLUCOSE (test code = POCGLU) 176 MG/DL 70-110 H HEMOGLOBIN [id number] 21:26:00 Test Item Value Reference Range Interpretation Comments HEMOGLOBIN ABG (test code = HGB/ABG) 8.8 G/DL 11.0-15.0 L [id number] 21:26:00 Test Item Value Reference Range Interpretation Comments HEMATOCRIT (test code = HCT/ABG) 26 % 33.0-45.0 L POC LACTIC [id number] 21:26:00 Test Item Value Reference Range Interpretation Comments POC LACTIC ACID (test code = 0.8 mmol/l 0.9-1.7 L POCLAC) POC VENOUS BLOOD [id number] 21:26:00 Test Item Value Reference Range Interpretation Comments POC VENOUS BLOOD GAS PH (test 7.346 7.33-7.45 N code = POCPHV) POC VENOUS BLOOD GAS PCO2 (test 70.7 mmHg 43-47 HH code = [id number]) POC VENOUS BLOOD GAS PO2 (test 39.7 mmHG 10-50 N code = NMKIH8R) POC TCO2 VENOUS (test code = 40.8 [id number]) POC HCO3 VENOUS (test code = 38.6 MMOL/L 22-27 H [id number]) POC BASE EXCESS VENOUS (test 13.0 MMOL/L -4.0-4.0 H code = POCBEV) POC O2 SATURATION VENOUS (test 68.8 % 60-80 N code = VFWI0AZ) VENOUS BLOOD GAS FIO2 (test code 70 % = FIO2V) VENOUS BLOOD GAS DELIVERY (test HFNC code = DELV) VENOUS BLOOD GAS TEMP (test code 98.6 F = TEMPV) VENOUS BLOOD GAS SITE (test code Central Line = SITEV) GLUCOSE [id number] 18:46:00 Test Item Value Reference Range Interpretation Comments GLUCOSE BEDSIDE (test 163 MG/DL 70-110 H Perfor med by certified code = GLUBED) 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 [id number] 18:17:00 Test Item Value Reference Range Interpretation Comments SODIUM (test code = NA/ABG) 147 MEQ/L 134-147 N POTASSIUM (test code = K/ABG) 3.5 MEQ/L 3.4-5.0 N CHLORIDE (test code = CL/ABG) 102 MEQ/L 100-108 N CREATININE ABG (test code = 1.3 mg/dL 0.6-1.0 H CREAABG) POC IONIZED CALCIUM (test code = 1.42 MMOL/L 1.12-1.32 H POCCA) POC GLUCOSE (test code = POCGLU) 186 MG/DL 70-110 H HEMOGLOBIN [id number] 18:17:00 Test Item Value Reference Range Interpretation Comments HEMOGLOBIN ABG (test code = HGB/ABG) 8.8 G/DL 11.0-15.0 L [id number] 18:17:00 Test Item Value Reference Range Interpretation Comments HEMATOCRIT (test code = HCT/ABG) 26 % 33.0-45.0 L POC LACTIC [id number] 18:17:00 Test Item Value Reference Range Interpretation Comments POC LACTIC ACID (test code = 0.7 mmol/l 0.9-1.7 L POCLAC) POC VENOUS BLOOD [id number] 18:17:00 Test Item Value Reference Range Interpretation Comments MARTIN'S TEST (test code = N/A ALLENS) POC VENOUS BLOOD GAS PH (test 7.308 7.33-7.45 L code = POCPHV) POC VENOUS BLOOD GAS PCO2 (test 75.8 mmHg 43-47 HH code = YGTVDA3J) POC VENOUS BLOOD GAS PO2 (test 37.3 mmHG 10-50 N code = IKTZE5T) POC TCO2 VENOUS (test code = 40.5 SZEPXY3W) POC HCO3 VENOUS (test code = 38.1 MMOL/L 22-27 H DQNKPE7J) POC BASE EXCESS VENOUS (test 11.8 MMOL/L -4.0-4.0 H code = POCBEV) POC O2 SATURATION VENOUS (test 63.8 % 60-80 N code = KRKF0RQ) VENOUS BLOOD GAS FIO2 (test code 70 % = FIO2V) VENOUS BLOOD GAS DELIVERY (test HFNC code = DELV) VBG TIDAL VOLUME (test code = 60 ml TVV) VENOUS BLOOD GAS TEMP (test code 97.9 F = TEMPV) VENOUS BLOOD GAS SITE (test code Central Line = SITEV) GLUCOSE [id number] 17:37:00 Test Item Value Reference Range Interpretation Comments GLUCOSE BEDSIDE (test 150 MG/DL 70-110 H Perfor med by certified code = GLUBED) 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 [id number] 15:37:00 Test Item Value Reference Range Interpretation Comments SODIUM (test code = NA) 145 mEq/L 134-147 N POTASSIUM (test code = 4.7 mEq/L 3.4-5.0 K) CHLORIDE (test code = 104 mEq/L 100-108 N CL) CARBON DIOXIDE (test 35 mEq/l 21-33 H code = CO2) ANION GAP (test code = 11 0-20 N GAP) GLUCOSE (test code = 235 mg/dL 70-110 H GLU) BLOOD UREA NITROGEN 58 mg/dL 7-18 H (test code = BUN) GLOMERULAR FILTRATION 48.0 70-80 L Units of measure = RATE (test code = GFR) ml/mi n/1.73 m2 CREATININE (test code = 1.1 mg/dL 0.6-1.3 N CREAT) CALCIUM (test code = 10.4 mg/dL 8.0-10.5 N CA) [id number] 15:37:00 Test Item Value Reference Range Interpretation Comments MAGNESIUM (test code = MAG) 2.34 mg/dL 1.80-2.40 N GLUCOSE [id number] 15:19:00 Test Item Value Reference Range Interpretation Comments GLUCOSE BEDSIDE (test 209 MG/DL 70-110 H [facility] med by certified code = GLUBED) 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 [id number] 13:47:00 Test Item Value Reference Range Interpretation Comments SODIUM (test code = NA/ABG) 145 MEQ/L 134-147 N POTASSIUM (test code = K/ABG) 3.6 MEQ/L 3.4-5.0 N CHLORIDE (test code = CL/ABG) 103 MEQ/L 100-108 N CREATININE ABG (test code = 1.3 mg/dL 0.6-1.0 H CREAABG) POC IONIZED CALCIUM (test code = 1.40 MMOL/L 1.12-1.32 H POCCA) POC GLUCOSE (test code = POCGLU) 326 MG/DL 70-110 H HEMOGLOBIN [id number] 13:47:00 Test Item Value Reference Range Interpretation Comments HEMOGLOBIN ABG (test code = HGB/ABG) 9.0 G/DL 11.0-15.0 L [id number] 13:47:00 Test Item Value Reference Range Interpretation Comments HEMATOCRIT (test code = HCT/ABG) 27 % 33.0-45.0 L POC LACTIC [id number] 13:47:00 Test Item Value Reference Range Interpretation Comments POC LACTIC ACID (test code = 1.1 mmol/l 0.9-1.7 N POCLAC) POC VENOUS BLOOD [id number] 13:47:00 Test Item Value Reference Range Interpretation Comments POC VENOUS BLOOD GAS PH (test 7.298 7.33-7.45 L code = POCPHV) POC VENOUS BLOOD GAS PCO2 (test 69.6 mmHg 43-47 HH code = HFNNNS4U) POC VENOUS BLOOD GAS PO2 (test 33.8 mmHG 10-50 N code = KYHOP9Y) POC TCO2 VENOUS (test code = 36.6 MEGJIO0I) POC HCO3 VENOUS (test code = 34.4 MMOL/L 22-27 H ZAGXYH9L) POC BASE EXCESS VENOUS (test 7.8 MMOL/L -4.0-4.0 H code = POCBEV) POC O2 SATURATION VENOUS (test 58.7 % 60-80 L code = TUAZ1NU) VENOUS BLOOD GAS FIO2 (test code 70 % = FIO2V) VENOUS BLOOD GAS DELIVERY (test HFNC code = DELV) VBG TIDAL VOLUME (test code = 60 ml TVV) VENOUS BLOOD GAS TEMP (test code 97.3 F = TEMPV) VENOUS BLOOD GAS SITE (test code Central Line = SITEV) GLUCOSE [id number] 13:38:00 Test Item Value Reference Range Interpretation Comments GLUCOSE BEDSIDE (test 236 MG/DL 70-110 H Perfor med by certified code = GLUBED) 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[facility] [id number] 12:35:00 Test Item Value Reference Range Interpretation Comments SURGICAL (test code = SR) R UN DATE: 12/23/21 [place] - LAB PAGE 1 RUN TIME: 1235 Specimen Inquiry RUN USER: INTERFACE P ATIENT: SAÚL GILES LOC: EVAN U #: [id number] AGE/SX: 76/F [facility] DR: Jeffry Hsu MD : 43 BED: 1 DIS: STATUS: ADM IN TLOC: SPEC #: [id number] RECD: 12/22/21 STATUS: WILFREDO REQ #: [id number] ARA: 12/19/21 DR: Jeffry Hsu MD ENTERED: 12/22/21 SP TYPE: SURGICAL OTHR DR: Aruna Fortune MD, Aisha MD Amin, Alkesh C MD Chaugle, Abdul Hannan MD Mouchli, Anas MD Raslan, Saleem MDORDERED: [id number], ANATOMIC SPEC COPIES TO: Aruna Fortune MD [address] [id number] Jeffry Hsu MD [address] [place] [address] Suki Fuchs MD [address] [id number] Abdiaziz Fuchs MD [address] [facility] [address] [place], [place] [id number] René Villareal MD [address] [place] [address] [address] [place] [address] Jd Alva MD [address] [place] [address] Colt Vail MD [address] [facility] [place] [facility] [address] [place] [address] CONTINUED ON NEXT PAGE R UN DATE: 12/23/21 [place] - LAB PAGE 2 RUN TIME: 1235 Specimen Inquiry RUN USER: INTERFACE S PEC #: [id number] PATIENT: SAÚL GILES #[id number] (Continued) PROCEDURES: [id number] (12/22/21) TISSUES: A. PERICARDIUM BIOPSY CLINICAL HISTORY SAME FINAL DIAGNOSIS Pericardium, excision: Benign fibroconnective tissue with focal hemorrhage and mild acuteinflammation. GROSS DESCRIPTION Received in formalin labeled "pericardium" include 2 fragments of irregular shaped graham-graymembranous tissue, aggregating to 7.5 cm in maximum dimension, with account retention representative sectionssubmitted in (A). Technical component performed at [facility],[address] [place] [address], [place] [address] Unless gross only, the diagnosis is based upon microscopic examination.Immunohistochemistr y: This test was developed and its performance characteristicsdetermined by this laboratory. It has not been approved nor does it need approvalby the [place] FDA. Appropriate positive and negative controls are reviewed and judgedto be acceptable. This laboratory is certified under the Clinical Laboratory ImprovementAmendments (CLIA-88) as qualified to perform high complexity clinical laboratory testing. 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[facility] GLUCOSE [id number] 06:43:00 Test Item Value Reference Range Interpretation Comments GLUCOSE BEDSIDE (test 213 MG/DL 70-110 H Perfor med by certified code = GLUBED) 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[facility] CBC W/AUTO [id number] 05:12:00 Test Item Value Reference Range Interpretation Comments WHITE BLOOD CELL (test code = 6.3 x10 3/uL 4.5-11.0 N WBC) RED BLOOD CELL (test code = 2.44 x10 6/uL 3.54-5.02 L RBC) HEMOGLOBIN (test code = HGB) 8.7 g/dL 11.0-15.0 L HEMATOCRIT (test code = HCT) 27.6 % 33.0-45.0 L MEAN CELL VOLUME (test code = 113.1 fL 81.0-99.0 H MCV) MEAN CELL HGB (test code = MCH) 35.7 pg 27.0-33.0 H MEAN CELL HGB CONCETRATION 31.5 g/dL 33.0-37.0 L (test code = MCHC) RED CELL DISTRIBUTION WIDTH CV 15.9 % 11.5-14.5 H (test code = RDW) RED CELL DISTRIBUTION WIDTH SD 66.9 fL 37.0-54.0 H (test code = RDW-SD) PLATELET COUNT (test code = 92 x10 3/uL 150-400 L PLT) MEAN PLATELET VOLUME (test code 11.9 fL 7.0-9.0 H = MPV) NEUTROPHIL % (test code = NT%) 86.0 % 56.0-77.0 H IMMATURE GRANULOCYTE % (test 1.1 % 0.0-2.0 N code = IG%) LYMPHOCYTE % (test code = LY%) 3.0 % 14.0-32.0 L MONOCYTE % (test code = MO%) 9.2 % 4.8-9.0 H EOSINOPHIL % (test code = EO%) 0.5 % 0.3-3.7 N BASOPHIL % (test code = BA%) 0.2 % 0.0-2.0 N NUCLEATED RBC % (test code = 0.5 % 0-0 H NRBC%) NEUTROPHIL # (test code = NT#) 5.42 x10 3/uL 2.0-7.6 N IMMATURE GRANULOCYTE # (test 0.07 x10 3/uL 0.00-0.03 H code = IG#) LYMPHOCYTE # (test code = LY#) 0.19 x10 3/uL 1.0-3.8 L MONOCYTE # (test code = MO#) 0.58 x10 3/uL 0.1-0.8 N EOSINOPHIL # (test code = EO#) 0.03 x10 3/uL 0.0-0.2 N BASOPHIL # (test code = BA#) 0.01 x10 3/uL 0.0-0.2 N NUCLEATED RBC # (test code = 0.03 x10 3/uL 0.0-0.1 N NRBC#) MANUAL DIFF REQUIRED (test code NO = MDIFF) BASIC METABOLIC [id number] 04:47:00 Test Item Value Reference Range Interpretation Comments SODIUM (test code = NA) 144 mEq/L 134-147 N POTASSIUM (test code = 3.9 mEq/L 3.4-5.0 N K) CHLORIDE (test code = 107 mEq/L 100-108 N CL) CARBON DIOXIDE (test 28 mEq/l 21-33 N code = CO2) ANION GAP (test code = 13 0-20 N GAP) GLUCOSE (test code = 222 mg/dL 70-110 H GLU) BLOOD UREA NITROGEN 33 mg/dL 7-18 H (test code = BUN) GLOMERULAR FILTRATION 48.0 70-80 L Units of measure = RATE (test code = GFR) ml/mi n/1.73 m2 CREATININE (test code = 1.1 mg/dL 0.6-1.3 N CREAT) CALCIUM (test code = 10.5 mg/dL 8.0-10.5 N CA) [id number] 04:47:00 Test Item Value Reference Range Interpretation Comments MAGNESIUM (test code = MAG) 2.42 mg/dL 1.80-2.40 H POC ARTERIAL BLOOD [id number] 04:01:00 Test Item Value Reference Range Interpretation Comments POC ARTERIAL BLOOD GAS PH (test 7.313 7.35-7.45 L code = POCPHA) POC ARTERIAL BLOOD GAS PCO2 (test 61.5 mmHg 35.0-45 HH code = HVVKKP3S) POC TCO2 ARTERIAL (test code = 33.1 POCTCO2) POC ARTERIAL BLOOD GAS PO2 (test 65.8 mmHg 80-100.0 L code = WWEPN4R) POC HCO3 ARTERIAL (test code = 31.2 MMOL/L 22.0-26.0 HH MGVNYU1G) POC BASE EXCESS (test code = 5.0 MMOL/L -4.0-4.0 H POCBEA) POC O2 SATURATION (test code = 90.0 % 90-100 N POCO2S) FIO2 (test code = FIO2A) 73 % PaO2/FiO2 (test code = RVJ0CPD3) 90.13 mm/Hg ABG DELIVERY (test code = MAAME) HFNC ABG SITE (test code = SITEA) R Radial MARTIN'S TEST (test code = ALLENS) Positive BASIC METABOLIC [id number] 04:01:00 Test Item Value Reference Range Interpretation Comments SODIUM (test code = NA/ABG) 145 MEQ/L 134-147 N POTASSIUM (test code = K/ABG) 3.6 MEQ/L 3.4-5.0 N CHLORIDE (test code = CL/ABG) 106 MEQ/L 100-108 N CREATININE ABG (test code = 1.1 mg/dL 0.6-1.0 H CREAABG) POC IONIZED CALCIUM (test code = 1.38 MMOL/L 1.12-1.32 H POCCA) POC GLUCOSE (test code = POCGLU) 234 MG/DL 70-110 H HEMOGLOBIN [id number] 04:01:00 Test Item Value Reference Range Interpretation Comments HEMOGLOBIN ABG (test code = 11.2 G/DL 11.0-15.0 N HGB/ABG) [id number] 04:01:00 Test Item Value Reference Range Interpretation Comments HEMATOCRIT (test code = HCT/ABG) 33 % 33.0-45.0 N POC LACTIC [id number] 04:01:00 Test Item Value Reference Range Interpretation Comments POC LACTIC ACID (test code = 0.8 mmol/l 0.9-1.7 L POCLAC) GLUCOSE [id number] 00:43:00 Test Item Value Reference Range Interpretation Comments GLUCOSE BEDSIDE (test 222 MG/DL 70-110 H Perfor med by certified code = GLUBED) 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[facility] - XR ABDOMEN 1V (KUB)2021-12-23 00:00:00 [facility] : 1945 Sex: F FAX:Jeffry Pennington MD [phone] [place]: St: ADM FAX: Abdiaziz Christiansen MD [phone] FAX: Solange Sawyer MD [phone] FAX: Colt Aguillon MD [phone] Name: SAÚL GILES [facility] : 1945 Age/S: 76/F [address] [place] [address] Unit #: [id number] Loc: G.[address] [place] [address] Phys: Solange Mohamud MD Acct: [id number] Dis Date: Status: ADM IN PHONE #: [phone] Exam Date: 12/23/202154 FAX #: [phone] Reason: NG TUBE PLACEMENT EXAMS: CPT CODE: [id number] XR ABDOMEN 1V (KUB [id number] PROCEDURE INFORMATION: Exam: XR Abdomen Exam date and time: 12/23/2021 12:38 AM Age: 76 years old Clinical indication: Device placement; Gi device; Nasogastric tube; Additional info: Ng tube placement TECHNIQUE: Imaging protocol: Radiologic exam of the abdomen. Views: Frontal supine view of the abdomen. 1 View. COMPARISON: CR XR ABDOMEN AP 1 V 12/22/2021 9:26 PM FINDINGS: Tubes, catheters and devices:A nasogastric tube terminates overlying the stomach. Gastrointestinal tract: There are dilated smallbowel loops in the left mid abdomen and left lower quadrant. Intraperitoneal space: No evidence of pn eumoperitoneum or soft tissue masses. Bones/joints: Unremarkable. Soft tissues: No abnormal radiopaque densities. IMPRESSION: 1. A nasogastric tube terminates overlying the stomach. 2. Dilated small bowel loops in the left lower quadrant. at 0122 Reported and signed by: Sanchez Mendiola M.D CC: Jeffry Hsu MD; Abdiaziz Fuchs MD; Solange Mohamud MD; Colt Vail MD Technologist: RT Elba(Marla) Trnscrd Date/Time/By: 12/23/2021 (012): By: [email or web address] Orig Print D/T: S: 12/23/2021 (121) PAGE 1 Signed Report- XR CHEST 1 [id number] 00:00:[address] : 1945 Sex: F FAX: Jeffry Pennington MD [phone] [place]: St: [facility] [place] FAX: Abdiaziz Christiansen MD [phone] FAX: René Blancas [phone] FAX: Colt Aguillon MD [phone] Name: CHANSAÚL [facility] : 1945 Age/S: 76/F [address] [place] [address] Unit #: [id number] Loc: G.[address] [place] [address] Phys: René Villareal MD Acct: [id number] Dis Date: Status: ADM IN PHONE #: [phone] Exam Date: FAX #: [phone] Reason: Cardiac Surgery Post Op EXAMS: CPT CODE: [id number] XR CHEST 1 V [id number] PROCEDURE INFORMATION: Exam: XR Chest Exam date and time: 12/23/2021 5:07 AM Age: 76 years old Clinical indication: Other: Cardiac surgery post op TECHNIQUE: Imaging protocol: Radiologic exam of the chest. Views: 1 view. COMPARISON: CR XR CHEST 1V 12/22/2021 5:14 AM FINDINGS: Tubes, catheters and dev ices: Chest tubes removed. [place]-Juanita catheter removed. Jugular introducer sheath remains in place. AICD, generator left chest wall. Lungs: Bilateral perihilar and dependent atelectasis, interstitial infiltrates are similar to previous. Pleural spaces: Small bilateral pleural effusions stable. No visible pneumothorax. Heart/Mediastinum: Stable cardiomegaly, Cardiac valvuloplasty. Stable mediastinal contours. Bones/joints: Sternotomy. IMPRESSION: Stable postoperative chest, following removal of bilateral chest tubes. at 0806 Reported and signed by: Jesus Galdamez M.D. CC: Jeffry Hsu MD; Abdiaziz Fuchs MD; René Villareal MD; Colt Vail MD Technologist: RT Caroline(R) Trnscrd Date/Time/By: 12/23/2021 (0806) : By: [email or web address] Orig Print D/T: S: 12/23/2021 (07) PAGE 1 Signed ReportBASIC METABOLIC PANEL 2021-12-22 23:05:00 Test Item Value Reference Range Interpretation Comments SODIUM (test code = NA) mEq/L 134-147 THIS IS A CORRECTED REPORT. DISREGA RD PREVIOUS REPORT . POTASSIUM (test code = mEq/L 3.4-5.0 K) CHLORIDE (test code = mEq/L 100-108 CL) CARBON DIOXIDE (test mEq/l 21-33 code = CO2) ANION GAP (test code = 0-20 GAP) GLUCOSE (test code = mg/dL 70-110 GLU) BLOOD UREA NITROGEN mg/dL 7-18 (test code = BUN) GLOMERULAR FILTRATION 70-80 RATE (test code = GFR) CREATININE (test code = mg/dL 0.6-1.3 CREAT) CALCIUM (test code = CA) mg/dL 8.0-10.5 [id number] 23:05:00 Test Item Value Reference Range Interpretation Comments MAGNESIUM (test code = MAG) mg/dL 1.80-2.40 CBC W/AUTO [id number] 22:57:00 Test Item Value Reference Range Interpretation Comments WHITE BLOOD CELL (test code = 13.7 x10 3/uL 4.5-11.0 H WBC) RED BLOOD CELL (test code = 3.27 x10 6/uL 3.54-5.02 L RBC) HEMOGLOBIN (test code = HGB) 8.9 g/dL 11.0-15.0 L HEMATOCRIT (test code = HCT) 26.6 % 33.0-45.0 L MEAN CELL VOLUME (test code = 81.3 fL 81.0-99.0 MCV) MEAN CELL HGB (test code = 27.2 pg 27.0-33.0 N MCH) MEAN CELL HGB CONCETRATION 33.5 g/dL 33.0-37.0 N (test code = MCHC) RED CELL DISTRIBUTION WIDTH CV 13.3 % 11.5-14.5 N (test code = RDW) RED CELL DISTRIBUTION WIDTH SD 39.4 fL 37.0-54.0 N (test code = RDW-SD) PLATELET COUNT (test code = 180 x10 3/uL 150-400 PLT) MEAN PLATELET VOLUME (test 9.9 fL 7.0-9.0 H code = MPV) NEUTROPHIL % (test code = NT%) 91.8 % 56.0-77.0 H IMMATURE GRANULOCYTE % (test 0.4 % 0.0-2.0 N code = IG%) LYMPHOCYTE % (test code = LY%) 3.1 % 14.0-32.0 L MONOCYTE % (test code = MO%) 4.6 % 4.8-9.0 L EOSINOPHIL % (test code = EO%) 0.0 % 0.3-3.7 L BASOPHIL % (test code = BA%) 0.1 % 0.0-2.0 N NUCLEATED RBC % (test code = 0.0 % 0-0 N NRBC%) NEUTROPHIL # (test code = NT#) 12.62 x10 3/uL 2.0-7.6 H IMMATURE GRANULOCYTE # (test 0.05 x10 3/uL 0.00-0.03 H code = IG#) LYMPHOCYTE # (test code = LY#) 0.42 x10 3/uL 1.0-3.8 L MONOCYTE # (test code = MO#) 0.63 x10 3/uL 0.1-0.8 N EOSINOPHIL # (test code = EO#) 0.00 x10 3/uL 0.0-0.2 N BASOPHIL # (test code = BA#) 0.01 x10 3/uL 0.0-0.2 N NUCLEATED RBC # (test code = 0.00 x10 3/uL 0.0-0.1 N NRBC#) MANUAL DIFF REQUIRED (test NO code = MDIFF) CALCIUM [id number] 22:56:00 Test Item Value Reference Range Interpretation Comments CALCIUM IONIZED (test code = TYREE) 1.10 MMOL/L 1.09-1.30 N GLUCOSE [id number] 21:52:00 Test Item Value Reference Range Interpretation Comments GLUCOSE BEDSIDE (test 168 MG/DL 70-110 H Perfor med by certified code = GLUBED) 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[facility] GLUCOSE [id number] 18:08:00 Test Item Value Reference Range Interpretation Comments GLUCOSE BEDSIDE (test 238 MG/DL 70-110 H Perfor med by certified code = GLUBED) 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 [id number] 17:53:00 Test Item Value Reference Range Interpretation Comments SODIUM (test code = NA/ABG) 142 MEQ/L 134-147 N POTASSIUM (test code = K/ABG) 6.2 MEQ/L 3.4-5.0 HH CHLORIDE (test code = CL/ABG) 106 MEQ/L 100-108 N CREATININE ABG (test code = 1.1 mg/dL 0.6-1.0 H CREAABG) POC IONIZED CALCIUM (test code = 1.35 MMOL/L 1.12-1.32 H POCCA) POC GLUCOSE (test code = POCGLU) 236 MG/DL 70-110 H HEMOGLOBIN [id number] 17:53:00 Test Item Value Reference Range Interpretation Comments HEMOGLOBIN ABG (test code = 11.8 G/DL 11.0-15.0 N HGB/ABG) [id number] 17:53:00 Test Item Value Reference Range Interpretation Comments HEMATOCRIT (test code = HCT/ABG) 35 % 33.0-45.0 N POC LACTIC [id number] 17:53:00 Test Item Value Reference Range Interpretation Comments POC LACTIC ACID (test code = 0.7 mmol/l 0.9-1.7 L POCLAC) POC VENOUS BLOOD [id number] 17:53:00 Test Item Value Reference Range Interpretation Comments MARTIN'S TEST (test code = N/A ALLENS) POC VENOUS BLOOD GAS PH (test 7.282 7.33-7.45 L code = POCPHV) POC VENOUS BLOOD GAS PCO2 (test 61.7 mmHg 43-47 HH code = FPHBLC8I) POC VENOUS BLOOD GAS PO2 (test 37.2 mmHG 10-50 N code = UXLAS2G) POC TCO2 VENOUS (test code = 31.2 MOYLYU8T) POC HCO3 VENOUS (test code = 29.3 MMOL/L 22-27 H MPDVSJ3I) POC BASE EXCESS VENOUS (test 2.5 MMOL/L -4.0-4.0 N code = POCBEV) POC O2 SATURATION VENOUS (test 63.2 % 60-80 N code = GCFA6XC) VENOUS BLOOD GAS FIO2 (test code 40 % = FIO2V) VENOUS BLOOD GAS DELIVERY (test BiPAP code = DELV) VBG VENT MODE (test code = BIVENT MODEV) VENOUS BLOOD GAS TEMP (test code 98 F = TEMPV) VENOUS BLOOD GAS SITE (test code Central Line = SITEV) BASIC METABOLIC [id number] 15:58:00 Test Item Value Reference Range Interpretation Comments SODIUM (test code = NA/ABG) 143 MEQ/L 134-147 N POTASSIUM (test code = K/ABG) 3.6 MEQ/L 3.4-5.0 N CHLORIDE (test code = CL/ABG) 103 MEQ/L 100-108 N CREATININE ABG (test code = 1.2 mg/dL 0.6-1.0 H CREAABG) POC IONIZED CALCIUM (test code = 1.35 MMOL/L 1.12-1.32 H POCCA) POC GLUCOSE (test code = POCGLU) 371 MG/DL 70-110 H HEMOGLOBIN [id number] 15:58:00 Test Item Value Reference Range Interpretation Comments HEMOGLOBIN ABG (test code = HGB/ABG) 8.1 G/DL 11.0-15.0 L [id number] 15:58:00 Test Item Value Reference Range Interpretation Comments HEMATOCRIT (test code = HCT/ABG) 24 % 33.0-45.0 L POC LACTIC [id number] 15:58:00 Test Item Value Reference Range Interpretation Comments POC LACTIC ACID (test code = 0.6 mmol/l 0.9-1.7 L POCLAC) POC VENOUS BLOOD [id number] 15:58:00 Test Item Value Reference Range Interpretation Comments MARTIN'S TEST (test code = N/A [facility]) POC VENOUS BLOOD GAS PH (test 7.226 7.33-7.45 L code = POCPHV) POC VENOUS BLOOD GAS PCO2 (test 74.1 mmHg 43-47 HH code = [id number]) POC VENOUS BLOOD GAS PO2 (test 36.8 mmHG 10-50 N code = MMBOY1S) POC TCO2 VENOUS (test code = 33.2 [id number]) POC HCO3 VENOUS (test code = 30.9 MMOL/L 22-27 H [id number]) POC BASE EXCESS VENOUS (test 3.2 MMOL/L -4.0-4.0 N code = POCBEV) POC O2 SATURATION VENOUS (test 58.2 % 60-80 L code = [id number]) VENOUS BLOOD GAS FIO2 (test code 60 % = FIO2V) VENOUS BLOOD GAS DELIVERY (test Vapotherm code = DELV) LILIYA. BLOOD GAS RESP. 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[facility] [id number] 07:18:00 Test Item Value Reference Range Interpretation Comments PHOSPHOROUS (test code = PHOS) 3.4 MG/DL 2.5-4.9 N GLUCOSE [id number] 07:01:00 Test Item Value Reference Range Interpretation Comments GLUCOSE BEDSIDE (test 211 MG/DL 70-110 H Perfor med by certified code = GLUBED) 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[facility] CBC W/AUTO [id number] 05:28:00 Test Item Value Reference Range Interpretation Comments WHITE BLOOD CELL (test code = 9.0 x10 3/uL 4.5-11.0 N WBC) RED BLOOD CELL (test code = 2.32 x10 6/uL 3.54-5.02 L RBC) HEMOGLOBIN (test code = HGB) 8.2 g/dL 11.0-15.0 L HEMATOCRIT (test code = HCT) 25.3 % 33.0-45.0 L MEAN CELL VOLUME (test code = 109.1 fL 81.0-99.0 H MCV) MEAN CELL HGB (test code = MCH) 35.3 pg 27.0-33.0 H MEAN CELL HGB CONCETRATION 32.4 g/dL 33.0-37.0 L (test code = MCHC) RED CELL DISTRIBUTION WIDTH CV 16.1 % 11.5-14.5 H (test code = RDW) RED CELL DISTRIBUTION WIDTH SD 64.1 fL 37.0-54.0 H (test code = RDW-SD) PLATELET COUNT (test code = 84 x10 3/uL 150-400 L PLT) MEAN PLATELET VOLUME (test code 11.9 fL 7.0-9.0 H = MPV) NEUTROPHIL % (test code = NT%) 88.9 % 56.0-77.0 H IMMATURE GRANULOCYTE % (test 0.8 % 0.0-2.0 N code = IG%) LYMPHOCYTE % (test code = LY%) 2.6 % 14.0-32.0 L MONOCYTE % (test code = MO%) 7.5 % 4.8-9.0 N EOSINOPHIL % (test code = EO%) 0.1 % 0.3-3.7 L BASOPHIL % (test code = BA%) 0.1 % 0.0-2.0 N NUCLEATED RBC % (test code = 0.2 % 0-0 H NRBC%) NEUTROPHIL # (test code = NT#) 7.98 x10 3/uL 2.0-7.6 H IMMATURE GRANULOCYTE # (test 0.07 x10 3/uL 0.00-0.03 H code = IG#) LYMPHOCYTE # (test code = LY#) 0.23 x10 3/uL 1.0-3.8 L MONOCYTE # (test code = MO#) 0.67 x10 3/uL 0.1-0.8 N EOSINOPHIL # (test code = EO#) 0.01 x10 3/uL 0.0-0.2 N BASOPHIL # (test code = BA#) 0.01 x10 3/uL 0.0-0.2 N NUCLEATED RBC # (test code = 0.02 x10 3/uL 0.0-0.1 N NRBC#) MANUAL DIFF REQUIRED (test code NO = MDIFF) BASIC METABOLIC [id number] 05:03:00 Test Item Value Reference Range Interpretation Comments SODIUM (test code = NA) 143 mEq/L 134-147 N POTASSIUM (test code = 4.0 mEq/L 3.4-5.0 N K) CHLORIDE (test code = 106 mEq/L 100-108 N CL) CARBON DIOXIDE (test 27 mEq/l 21-33 N code = CO2) ANION GAP (test code = 14 0-20 N GAP) GLUCOSE (test code = 219 mg/dL 70-110 H GLU) BLOOD UREA NITROGEN 33 mg/dL 7-18 H (test code = BUN) GLOMERULAR FILTRATION 39.6 70-80 L Units of measure = RATE (test code = GFR) ml/mi n/1.73 m2 CREATININE (test code = 1.3 mg/dL 0.6-1.3 N CREAT) CALCIUM (test code = 10.4 mg/dL 8.0-10.5 N CA) COMMENTS: POD #1HEPATIC FUNCTION [id number] 05:03:00 Test Item Value Reference Range Interpretation Comments TOTAL PROTEIN (test code = PROT) 6.8 g/dL 6.4-8.2 N ALBUMIN (test code = ALB) 4.30 g/dL 3.4-5.0 N BILIRUBIN TOTAL (test code = BILT) 0.50 mg/dL 0.0-1.0 N BILIRUBIN DIRECT (test code = 0.20 MG/DL 0.0-0.30 BILD) BILIRUBIN INDIRECT (test code = 0.30 MG/DL BILIND) SGOT/AST (test code = AST) 22 IUnit/L 15-37 N SGPT/ALT (test code = ALT) 13 IUnit/L 30-65 L ALKALINE PHOSPHATASE TOTAL (test 57 IUnit/L 20-125 N code = ALKP) COMMENTS: POD #[id number] 05:03:00 Test Item Value Reference Range Interpretation Comments MAGNESIUM (test code = MAG) 2.20 mg/dL 1.80-2.40 N COMMENTS: POD #1POC ARTERIAL BLOOD [id number] 04:35:00 Test Item Value Reference Range Interpretation Comments POC ARTERIAL BLOOD GAS PH (test 7.334 7.35-7.45 L code = POCPHA) POC ARTERIAL BLOOD GAS PCO2 55.7 mmHg 35.0-45 HH (test code = [id number]) POC TCO2 ARTERIAL (test code = 31.4 POCTCO2) POC ARTERIAL BLOOD GAS PO2 (test 88.6 mmHg 80-100.0 N code = NZWGK9N) POC HCO3 ARTERIAL (test code = 29.7 MMOL/L 22.0-26.0 HH JWOVYP5I) POC BASE EXCESS (test code = 3.8 MMOL/L -4.0-4.0 N POCBEA) POC O2 SATURATION (test code = 96.0 % 90-100 N POCO2S) FIO2 (test code = FIO2A) 60 % PaO2/FiO2 (test code = [id number]) 147.66 mm/Hg ABG DELIVERY (test code = MAAME) BiPAP ABG VENT RESP RATE (test code = 25 /MIN RRA) ABG TIDAL VOLUME (test code = 550 ml TVA) ABG TEMPERATURE (test code = 98.4 F TEMPA) ABG SITE (test code = SITEA) Art Line BASIC METABOLIC [id number] 04:35:00 Test Item Value Reference Range Interpretation Comments SODIUM (test code = NA/ABG) 145 MEQ/L 134-147 N POTASSIUM (test code = K/ABG) 3.7 MEQ/L 3.4-5.0 N CHLORIDE (test code = CL/ABG) 106 MEQ/L 100-108 N CREATININE ABG (test code = 1.3 mg/dL 0.6-1.0 H CREAABG) POC IONIZED CALCIUM (test code = 1.44 MMOL/L 1.12-1.32 H POCCA) POC GLUCOSE (test code = POCGLU) 224 MG/DL 70-110 H HEMOGLOBIN [id number] 04:35:00 Test Item Value Reference Range Interpretation Comments HEMOGLOBIN ABG (test code = HGB/ABG) 8.6 G/DL 11.0-15.0 L [id number] 04:35:00 Test Item Value Reference Range Interpretation Comments HEMATOCRIT (test code = HCT/ABG) 25 % 33.0-45.0 L POC LACTIC [id number] 04:35:00 Test Item Value Reference Range Interpretation Comments POC LACTIC ACID (test code = 0.9 mmol/l 0.9-1.7 N POCLAC) GLUCOSE [id number] 00:16:00 Test Item Value Reference Range Interpretation Comments GLUCOSE BEDSIDE (test 178 MG/DL 70-110 H Perfor med by certified code = GLUBED) 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[facility] POC ARTERIAL BLOOD [id number] 00:06:00 Test Item Value Reference Range Interpretation Comments POC ARTERIAL BLOOD GAS PH (test 7.330 7.35-7.45 L code = POCPHA) POC ARTERIAL BLOOD GAS PCO2 51.8 mmHg 35.0-45 HH (test code = [id number]) POC TCO2 ARTERIAL (test code = 29.1 POCTCO2) POC ARTERIAL BLOOD GAS PO2 (test 69.4 mmHg 80-100.0 L code = PBSSE0I) POC HCO3 ARTERIAL (test code = 27.5 MMOL/L 22.0-26.0 H PEFQAC9O) POC BASE EXCESS (test code = 1.4 MMOL/L -4.0-4.0 N POCBEA) POC O2 SATURATION (test code = 92.5 % 90-100 N POCO2S) FIO2 (test code = FIO2A) 60 % PaO2/FiO2 (test code = [id number]) 115.66 mm/Hg ABG DELIVERY (test code = MAAME) BiPAP ABG VENT RESP RATE (test code = 25 /MIN RRA) ABG TIDAL VOLUME (test code = 550 ml TVA) ABG TEMPERATURE (test code = 97.7 F TEMPA) ABG SITE (test code = SITEA) Art Line BASIC METABOLIC [id number] 00:06:00 Test Item Value Reference Range Interpretation Comments SODIUM (test code = NA/ABG) 142 MEQ/L 134-147 N POTASSIUM (test code = K/ABG) 4.1 MEQ/L 3.4-5.0 N CHLORIDE (test code = CL/ABG) 106 MEQ/L 100-108 N CREATININE ABG (test code = 1.4 mg/dL 0.6-1.0 H CREAABG) POC IONIZED CALCIUM (test code = 1.40 MMOL/L 1.12-1.32 H POCCA) POC GLUCOSE (test code = POCGLU) 196 MG/DL 70-110 H HEMOGLOBIN [id number] 00:06:00 Test Item Value Reference Range Interpretation Comments HEMOGLOBIN ABG (test code = HGB/ABG) 8.3 G/DL 11.0-15.0 L [id number] 00:06:00 Test Item Value Reference Range Interpretation Comments HEMATOCRIT (test code = HCT/ABG) 24 % 33.0-45.0 L POC LACTIC [id number] 00:06:00 Test Item Value Reference Range Interpretation Comments POC LACTIC ACID (test code = 0.8 mmol/l 0.9-1.7 L POCLAC) - XR ABDOMEN 1V (KUB)2021-12-22 00:00:00 [facility] 1945 Sex: F FAX:Jeffry Pennington MD [phone] [place]: St: ADM FAX: Abdiaziz Christiansen MD [phone] FAX: Solange Sawyer MD [phone] FAX: Colt Aguillon MD [phone] Name: SAÚL GILES [facility] : 1945 Age/S: 76/F [address] [place] [address] Unit #: [id number] Loc: [address] [address] Phys: Solange Mohamud MD Acct: [id number] Dis Date: Status: ADM IN PHONE #: [phone] Exam Date: 12/22/2021 2134FAX #: [phone] Reason: NAUSEA EXAMS: CPT CODE: [id number] XR ABDOMEN 1V (KUB) [id number] PROCEDURE INFORMATION: Exam: XR Abdomen Exam date and time: 12/22/2021 9:26 PM Age: 76 years old Clinical indication: Nausea TECHNIQUE: Imaging protocol: Radiologic exam of the abdomen. Views: Frontal supine view of the abdomen. 1 View. COMPARISON: CR XR CHEST 1V 12/22/2021 5:14 AM FINDINGS: Gastrointestinal tract: Lower abdomen small bowel show diffuse distention up to 3.4 cm diameter. There is no pneumatosis or mass effect. Bones/joints: Unremarkable. Soft tissues: Surgical sutures overlie the right abdomen.IMPRESSION: Nonspecific lower abdomen small bowel distention. If symptoms persist or worsen, follow-up imaging may be performed to better assess for small bowel obstruction at 0818 Reported and signed by: Anoop Lilly M.D. CC: Jeffry Gilliam; Abdiaziz Fuchs MD; Solange Mohamud MD; Colt Vail MD Technologist: Radha Aaron, RT(R) Trnscrd Date/Time/By: 12/22/2021 (2153) : By: [email or web address] Orig Print D/T: S: 12/22/2021 (2154) PAGE 1 Signed Report- US SOFT TISSUE [id number] 00:00:[address] 1945 Sex: F Name: SAÚL GILES [facility] : 1945 Age/S: 76 / F [address] [place] [address] Unit #: [id number] Loc: [place] [address] Phys: Jd Alva MD Acct: [id number] Dis Date: Status: ADM IN PHONE #:[phone] Exam Date: 12/22/20211106 FAX #: [phone] Reason: right pleural effusion EXAMS: CPT CODE: [id number] US SOFT TISSUE TORSO 83034 PROCEDURE INFORMATION: Exam: US Chest, Pleural Space Exam date and time: 12/22/2021 10:18 AM Age: 76 years old Clinical indication: Screening exam; Other screening; Additional info: Right pleural effusion TECHNIQUE: Imaging protocol: Real time ultrasound ofthe chest was performed with image documentation. Exam focused on the pleural space. COMPARISON: CT CHEST W/O CONTRAST 12/17/2021 5:33 PM FINDINGS: Pleural spaces: Minimal left and mild right pleural effusions. IMPRESSION: Minimal left and mild right pleural effusions. at 1125 Reported and signed by: Amina Garcia D.O. CC: Jeffry Hsu MD; Abdiaziz Fuchs MD; Jd Alva MD; Colt Vail MD Technologist: Silke Vee RDMS(AB)(OB) Trnscb Date/Time: 12/22/2021 (1124) [email or web address] Orig Print D/T: S: 12/22/2021 (1124) Probe: PAGE 1 Signed Report- XR CHEST 1 V 2021-12-22 00:00:[address] : 1945 Sex: F FAX:Jeffry Pennington MD [phone] [place]: St: ADM FAX: Abdiaziz Christiansen MD [phone] FAX: René Blancas [phone] FAX: Colt Aguillon MD [phone] Name: SAÚL GILES [facility] : 1945 Age/S: 76/F [address] [place] [address] Unit #: [id number] Loc: [address] [place] [address] Phys: René Villareal MD Acct: [id number] Dis Date: Status: ADM IN PHONE #: [phone] Exam Date: 12/22/2021 0635 FAX #: [phone] Reason: Cardiac Surgery Post Op EXAMS: CPT CODE: [id number] XR CHEST 1 V 90354 PROCEDURE INFORMATION: Exam: XR Chest Exam date and time: 12/22/2021 5:14 AM Age: 76 years old Clinical indication: Other: Cardiac surgery post op TECHNIQUE: Imaging protocol: Radiologic exam of the chest. Views: 1 view. COMPARISON: CR XR CHEST 1V 12/21/2021 5:41 AM FINDINGS: Tubes, catheters and devices: Right IJ Fairfield-Juanita introducer and Fairfield-Juanita catheter with the catheter tip at the right main pulmonary artery. Right-sided thoracostomy tube. Biventricular pacemaker with leads. Lungs: Mild decreased lung volumes. Interval worsening opacity at the right lung/right hemithorax. Interval worseningopacity at the retrocardiac left lower lung field. Pleural spaces: Interval obscuration of the righthemidiaphragm by increasing right pleural fluid collection. Stable left pleural fluid collection. Nopneumothorax. Heart/Mediastinum: The cardiomediastinal silhouette is stable. Interval worsening pulmonary venous vascular congestion. Vasculature: Vascular calcification mildly tortuous thoracic aorticarch and descending thoracic aorta. Aortic valvular device. Bones/joints: No acute abnormality. Sternotomy wires. IMPRESSION: 1. Interval worsening pulmonary venous vascular congestion. 2. Interval worsening opacity at the right lung/right hemithorax likely representing combination of increasing pulmonary parenchymal opacity at the right mid and lower lung lema and increase in right pleural fluid collection layering over the right lung. 3. Interval worsening opacity at the retrocardiac left lower lung field. at 0905 Reportedand signed by: Ming Gibbs M.D. PAGE 1 Signed Report (CONTINUED) FAX: Jeffry Pennington MD [phone] [place]: St: ADM FAX: Abdiaziz Christiansen MD [phone] FAX: René Blancas [phone] FAX: Colt Aguillon MD [phone] Name: SAÚL GILES [facility] [place] : 1945 Age/S: 76/F [address] [place] [address] Unit #: [id number] Loc: [address] [place] [address] Phys: René Villareal MD Acct: [id number] Dis Date: Status: ADM IN PHONE #: [phone] Exam Date: 12/22/2021634 FAX #: [phone] Reason: Cardiac Surgery Post Op EXAMS: CPT CODE: [id number] XR CHEST 1 V 21148 (Continued) CC: Jeffry Hsu MD; Abdiaziz Fuchs MD; René Villareal MD; Colt Vail MD Technologist: Hali Leon RT(R) Trnscrd Date/Time/By: 12/22/2021 (904) : By: [email or web address] Orig Print D/T: S: 12/22/2021 (904) PAGE [facility] [id number] 21:10:00 Test Item Value Reference Range Interpretation Comments POC ARTERIAL BLOOD GAS PH (test 7.306 7.35-7.45 L code = POCPHA) POC ARTERIAL BLOOD GAS PCO2 56.1 mmHg 35.0-45 HH (test code = GNPEQC1Z) POC TCO2 ARTERIAL (test code = 29.8 POCTCO2) POC ARTERIAL BLOOD GAS PO2 (test 64.8 mmHg 80-100.0 L code = QYPZP9C) POC HCO3 ARTERIAL (test code = 28.1 MMOL/L 22.0-26.0 HH XBUMQZ3J) POC BASE EXCESS (test code = 1.7 MMOL/L -4.0-4.0 N POCBEA) POC O2 SATURATION (test code = 90.0 % 90-100 N POCO2S) FIO2 (test code = FIO2A) 60 % PaO2/FiO2 (test code = [id number]) 108.00 mm/Hg ABG DELIVERY (test code = MAAME) BiPAP ABG VENT RESP RATE (test code = 25 /MIN RRA) ABG TIDAL VOLUME (test code = 550 ml TVA) ABG TEMPERATURE (test code = 98.1 F TEMPA) ABG SITE (test code = SITEA) Art Line BASIC METABOLIC [id number] 21:10:00 Test Item Value Reference Range Interpretation Comments SODIUM (test code = NA/ABG) 142 MEQ/L 134-147 N POTASSIUM (test code = K/ABG) 4.4 MEQ/L 3.4-5.0 N CHLORIDE (test code = CL/ABG) 107 MEQ/L 100-108 N CREATININE ABG (test code = 1.6 mg/dL 0.6-1.0 H CREAABG) POC IONIZED CALCIUM (test code = 1.39 MMOL/L 1.12-1.32 H POCCA) POC GLUCOSE (test code = POCGLU) 200 MG/DL 70-110 H HEMOGLOBIN [id number] 21:10:00 Test Item Value Reference Range Interpretation Comments HEMOGLOBIN ABG (test code = HGB/ABG) 8.4 G/DL 11.0-15.0 L [id number] 21:10:00 Test Item Value Reference Range Interpretation Comments HEMATOCRIT (test code = HCT/ABG) 25 % 33.0-45.0 L POC LACTIC [id number] 21:10:00 Test Item Value Reference Range Interpretation Comments POC LACTIC ACID (test code = 0.8 mmol/l 0.9-1.7 L POCLAC) GLUCOSE [id number] 16:26:00 Test Item Value Reference Range Interpretation Comments GLUCOSE BEDSIDE (test 178 MG/DL 70-110 H Perfor med by certified code = GLUBED) 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[facility] POC ARTERIAL BLOOD [id number] 16:07:00 Test Item Value Reference Range Interpretation Comments POC ARTERIAL BLOOD GAS PH (test 7.282 7.35-7.45 LL code = POCPHA) POC ARTERIAL BLOOD GAS PCO2 (test 56.0 mmHg 35.0-45 HH code = XSVGHL7U) POC TCO2 ARTERIAL (test code = 28.3 POCTCO2) POC ARTERIAL BLOOD GAS PO2 (test 92.5 mmHg 80-100.0 N code = YGVRJ4P) POC HCO3 ARTERIAL (test code = 26.5 MMOL/L 22.0-26.0 H VWHRSD1Z) POC BASE EXCESS (test code = -0.3 MMOL/L -4.0-4.0 N POCBEA) POC O2 SATURATION (test code = 96.0 % 90-100 N POCO2S) FIO2 (test code = FIO2A) 100 % PaO2/FiO2 (test code = PIS4AWY2) 92.50 mm/Hg ABG DELIVERY (test code = MAAME) Vapotherm ABG TEMPERATURE (test code = 98 F TEMPA) ABG SITE (test code = SITEA) Art Line MARTIN'S TEST (test code = ALLENS) N/A BASIC METABOLIC [id number] 16:07:00 Test Item Value Reference Range Interpretation Comments SODIUM (test code = NA/ABG) 144 MEQ/L 134-147 N POTASSIUM (test code = K/ABG) 4.2 MEQ/L 3.4-5.0 N CHLORIDE (test code = CL/ABG) 108 MEQ/L 100-108 N CREATININE ABG (test code = 1.5 mg/dL 0.6-1.0 H CREAABG) POC IONIZED CALCIUM (test code = 1.33 MMOL/L 1.12-1.32 H POCCA) POC GLUCOSE (test code = POCGLU) 175 MG/DL 70-110 H HEMOGLOBIN [id number] 16:07:00 Test Item Value Reference Range Interpretation Comments HEMOGLOBIN ABG (test code = HGB/ABG) 8.6 G/DL 11.0-15.0 L [id number] 16:07:00 Test Item Value Reference Range Interpretation Comments HEMATOCRIT (test code = HCT/ABG) 25 % 33.0-45.0 L POC LACTIC [id number] 16:07:00 Test Item Value Reference Range Interpretation Comments POC LACTIC ACID (test code = 1.0 mmol/l 0.9-1.7 N POCLAC) POC ARTERIAL BLOOD [id number] 15:23:00 Test Item Value Reference Range Interpretation Comments POC ARTERIAL BLOOD GAS PH (test 7.310 7.35-7.45 L code = POCPHA) POC ARTERIAL BLOOD GAS PCO2 52.4 mmHg 35.0-45 HH (test code = AOZOPS1C) POC TCO2 ARTERIAL (test code = 27.9 POCTCO2) POC ARTERIAL BLOOD GAS PO2 (test 87.5 mmHg 80-100.0 N code = BBCUY7V) POC HCO3 ARTERIAL (test code = 26.3 MMOL/L 22.0-26.0 H BQFCTT6H) POC BASE EXCESS (test code = 0.1 MMOL/L -4.0-4.0 N POCBEA) POC O2 SATURATION (test code = 95.4 % 90-100 N POCO2S) FIO2 (test code = FIO2A) 60 % PaO2/FiO2 (test code = BJO2BEJ3) 145.83 mm/Hg ABG DELIVERY (test code = MAAME) BiPAP ABG TEMPERATURE (test code = 99 F TEMPA) ABG SITE (test code = SITEA) Art Line MARTIN'S TEST (test code = N/A ALLENS) BASIC METABOLIC [id number] 15:23:00 Test Item Value Reference Range Interpretation Comments SODIUM (test code = NA/ABG) 140 MEQ/L 134-147 N POTASSIUM (test code = K/ABG) 4.2 MEQ/L 3.4-5.0 N CHLORIDE (test code = CL/ABG) 105 MEQ/L 100-108 N CREATININE ABG (test code = 1.6 mg/dL 0.6-1.0 H CREAABG) POC IONIZED CALCIUM (test code = 1.32 MMOL/L 1.12-1.32 N POCCA) POC GLUCOSE (test code = POCGLU) 193 MG/DL 70-110 H HEMOGLOBIN [id number] 15:23:00 Test Item Value Reference Range Interpretation Comments HEMOGLOBIN ABG (test code = HGB/ABG) 7.8 G/DL 11.0-15.0 L [id number] 15:23:00 Test Item Value Reference Range Interpretation Comments HEMATOCRIT (test code = HCT/ABG) 23 % 33.0-45.0 L POC LACTIC [id number] 15:23:00 Test Item Value Reference Range Interpretation Comments POC LACTIC ACID (test code = 0.9 mmol/l 0.9-1.7 N POCLAC) POC ARTERIAL BLOOD [id number] 12:31:00 Test Item Value Reference Range Interpretation Comments POC ARTERIAL BLOOD GAS PH (test 7.227 7.35-7.45 LL code = POCPHA) POC ARTERIAL BLOOD GAS PCO2 (test 65.9 mmHg 35.0-45 HH code = PGSHEW9N) POC TCO2 ARTERIAL (test code = 29.4 POCTCO2) POC ARTERIAL BLOOD GAS PO2 (test 47.8 mmHg 80-100.0 LL code = VGQII2H) POC HCO3 ARTERIAL (test code = 27.4 MMOL/L 22.0-26.0 H OOLYQJ1T) POC BASE EXCESS (test code = -0.2 MMOL/L -4.0-4.0 N POCBEA) POC O2 SATURATION (test code = 73.8 % 90-100 L POCO2S) FIO2 (test code = FIO2A) 100 % PaO2/FiO2 (test code = KBK9MJV8) 47.80 mm/Hg ABG DELIVERY (test code = MAAME) Vapotherm ABG SITE (test code = SITEA) Art Line MARTIN'S TEST (test code = ALLENS) N/A BASIC METABOLIC [id number] 12:31:00 Test Item Value Reference Range Interpretation Comments SODIUM (test code = NA/ABG) 143 MEQ/L 134-147 N POTASSIUM (test code = K/ABG) 4.2 MEQ/L 3.4-5.0 N CHLORIDE (test code = CL/ABG) 106 MEQ/L 100-108 N CREATININE ABG (test code = 1.7 mg/dL 0.6-1.0 H CREAABG) POC IONIZED CALCIUM (test code = 1.40 MMOL/L 1.12-1.32 H POCCA) POC GLUCOSE (test code = POCGLU) 139 MG/DL 70-110 H HEMOGLOBIN [id number] 12:31:00 Test Item Value Reference Range Interpretation Comments HEMOGLOBIN ABG (test code = HGB/ABG) 8.7 G/DL 11.0-15.0 L [id number] 12:31:00 Test Item Value Reference Range Interpretation Comments HEMATOCRIT (test code = HCT/ABG) 26 % 33.0-45.0 L POC LACTIC [id number] 12:31:00 Test Item Value Reference Range Interpretation Comments POC LACTIC ACID (test code = 0.8 mmol/l 0.9-1.7 L POCLAC) [id number] 11:49:00 Test Item Value Reference Range Interpretation Comments PHOSPHOROUS (test code = PHOS) 4.5 MG/DL 2.5-4.9 N CALCIUM [id number] 09:46:00 Test Item Value Reference Range Interpretation Comments CALCIUM IONIZED (test code = TYREE) 1.17 MMOL/L 1.09-1.30 N GLUCOSE [id number] 08:28:00 Test Item Value Reference Range Interpretation Comments GLUCOSE BEDSIDE (test 114 MG/DL 70-110 H Perfor med by certified code = GLUBED) 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[facility] GLUCOSE [id number] 04:20:00 Test Item Value Reference Range Interpretation Comments GLUCOSE BEDSIDE (test 113 MG/DL 70-110 H Perfor med by certified code = GLUBED) 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 [id number] 03:00:00 Test Item Value Reference Range Interpretation Comments SODIUM (test code = NA) 145 mEq/L 134-147 N POTASSIUM (test code = 4.3 mEq/L 3.4-5.0 N K) CHLORIDE (test code = 107 mEq/L 100-108 N CL) CARBON DIOXIDE (test 26 mEq/l 21-33 N code = CO2) ANION GAP (test code = 16 0-20 N GAP) GLUCOSE (test code = 117 mg/dL 70-110 H GLU) BLOOD UREA NITROGEN 30 mg/dL 7-18 H (test code = BUN) GLOMERULAR FILTRATION 31.2 70-80 L Units of measure = RATE (test code = GFR) ml/mi n/1.73 m2 CREATININE (test code = 1.6 mg/dL 0.6-1.3 H CREAT) CALCIUM (test code = 10.2 mg/dL 8.0-10.5 N CA) COMMENTS: POD #1HEPATIC FUNCTION [id number] 03:00:00 Test Item Value Reference Range Interpretation Comments TOTAL PROTEIN (test code = PROT) 7.1 g/dL 6.4-8.2 ALBUMIN (test code = ALB) 4.60 g/dL 3.4-5.0 N BILIRUBIN TOTAL (test code = BILT) 0.50 mg/dL 0.0-1.0 N BILIRUBIN DIRECT (test code = 0.30 MG/DL 0.0-0.30 N BILD) BILIRUBIN INDIRECT (test code = 0.20 MG/DL BILIND) SGOT/AST (test code = AST) 32 IUnit/L 15-37 N SGPT/ALT (test code = ALT) 12 IUnit/L 30-65 L ALKALINE PHOSPHATASE TOTAL (test 50 IUnit/L 20-125 N code = ALKP) COMMENTS: POD #[id number] 03:00:00 Test Item Value Reference Range Interpretation Comments MAGNESIUM (test code = MAG) 2.41 mg/dL 1.80-2.40 H COMMENTS: POD #1CBC W/AUTO [id number] 02:32:00 Test Item Value Reference Range Interpretation Comments WHITE BLOOD CELL (test code = 9.2 x10 3/uL 4.5-11.0 N WBC) RED BLOOD CELL (test code = 2.23 x10 6/uL 3.54-5.02 L RBC) HEMOGLOBIN (test code = HGB) 8.2 g/dL 11.0-15.0 L HEMATOCRIT (test code = HCT) 24.8 % 33.0-45.0 L MEAN CELL VOLUME (test code = 111.2 fL 81.0-99.0 H MCV) MEAN CELL HGB (test code = MCH) 36.8 pg 27.0-33.0 H MEAN CELL HGB CONCETRATION 33.1 g/dL 33.0-37.0 N (test code = MCHC) RED CELL DISTRIBUTION WIDTH CV 16.1 % 11.5-14.5 H (test code = RDW) RED CELL DISTRIBUTION WIDTH SD 65.6 fL 37.0-54.0 H (test code = RDW-SD) PLATELET COUNT (test code = 71 x10 3/uL 150-400 L PLT) IMMATURE PLATELET FRACTION 8.9 % 0.9-11.2 N (test code = IPF) MEAN PLATELET VOLUME (test code 12.2 fL 7.0-9.0 H = MPV) NEUTROPHIL % (test code = NT%) 88.2 % 56.0-77.0 H IMMATURE GRANULOCYTE % (test 0.8 % 0.0-2.0 N code = IG%) LYMPHOCYTE % (test code = LY%) 2.9 % 14.0-32.0 L MONOCYTE % (test code = MO%) 7.9 % 4.8-9.0 N EOSINOPHIL % (test code = EO%) 0.1 % 0.3-3.7 L BASOPHIL % (test code = BA%) 0.1 % 0.0-2.0 N NUCLEATED RBC % (test code = 0.0 % 0-0 N NRBC%) NEUTROPHIL # (test code = NT#) 8.12 x10 3/uL 2.0-7.6 H IMMATURE GRANULOCYTE # (test 0.07 x10 3/uL 0.00-0.03 H code = IG#) LYMPHOCYTE # (test code = LY#) 0.27 x10 3/uL 1.0-3.8 L MONOCYTE # (test code = MO#) 0.73 x10 3/uL 0.1-0.8 N EOSINOPHIL # (test code = EO#) 0.01 x10 3/uL 0.0-0.2 N BASOPHIL # (test code = BA#) 0.01 x10 3/uL 0.0-0.2 N NUCLEATED RBC # (test code = 0.00 x10 3/uL 0.0-0.1 N NRBC#) MANUAL DIFF REQUIRED (test code NO = MDIFF) POC ARTERIAL BLOOD [id number] 02:12:00 Test Item Value Reference Range Interpretation Comments POC ARTERIAL BLOOD GAS PH (test 7.341 7.35-7.45 L code = POCPHA) POC ARTERIAL BLOOD GAS PCO2 50.1 mmHg 35.0-45 HH (test code = [id number]) POC TCO2 ARTERIAL (test code = 28.7 POCTCO2) POC ARTERIAL BLOOD GAS PO2 (test 95.7 mmHg 80-100.0 N code = BVGMY4W) POC HCO3 ARTERIAL (test code = 27.1 MMOL/L 22.0-26.0 H [id number]) POC BASE EXCESS (test code = 1.4 MMOL/L -4.0-4.0 N POCBEA) POC O2 SATURATION (test code = 96.8 % 90-100 N POCO2S) FIO2 (test code = FIO2A) 60 % PaO2/FiO2 (test code = [id number]) 159.50 mm/Hg ABG DELIVERY (test code = MAAME) BiPAP ABG VENT RESP RATE (test code = 25 /MIN RRA) ABG TEMPERATURE (test code = 98.7 F TEMPA) ABG SITE (test code = SITEA) Art Line BASIC METABOLIC [id number] 02:12:00 Test Item Value Reference Range Interpretation Comments SODIUM (test code = NA/ABG) 143 MEQ/L 134-147 N POTASSIUM (test code = K/ABG) 4.1 MEQ/L 3.4-5.0 N CHLORIDE (test code = CL/ABG) 107 MEQ/L 100-108 N CREATININE ABG (test code = 1.8 mg/dL 0.6-1.0 H CREAABG) POC IONIZED CALCIUM (test code = 1.36 MMOL/L 1.12-1.32 H POCCA) POC GLUCOSE (test code = POCGLU) 113 MG/DL 70-110 H HEMOGLOBIN [id number] 02:12:00 Test Item Value Reference Range Interpretation Comments HEMOGLOBIN ABG (test code = HGB/ABG) 8.4 G/DL 11.0-15.0 L [id number] 02:12:00 Test Item Value Reference Range Interpretation Comments HEMATOCRIT (test code = HCT/ABG) 25 % 33.0-45.0 L POC LACTIC [id number] 02:12:00 Test Item Value Reference Range Interpretation Comments POC LACTIC ACID (test code = 0.8 mmol/l 0.9-1.7 L POCLAC) CREATININE [id number] 01:08:00 Test Item Value Reference Range Interpretation Comments CREATININE ABG (test code = 1.4 mg/dL 0.6-1.0 H CREAABG) HEMOGLOBIN [id number] 01:08:00 Test Item Value Reference Range Interpretation Comments HEMOGLOBIN ABG (test code = HGB/ABG) 5.9 G/DL 11.0-15.0 L [id number] 01:08:00 Test Item Value Reference Range Interpretation Comments HEMATOCRIT (test code = HCT/ABG) 17 % 33.0-45.0 L POC VENOUS BLOOD [id number] 01:08:00 Test Item Value Reference Range Interpretation Comments POC VENOUS BLOOD GAS PH (test 7.329 7.33-7.45 L code = POCPHV) POC VENOUS BLOOD GAS PCO2 (test 39.5 mmHg 43-47 L code = KPYSJE4Y) POC VENOUS BLOOD GAS PO2 (test 33.3 mmHG 10-50 N code = AMUBR6U) POC TCO2 VENOUS (test code = 22.0 GOYYJU7I) POC HCO3 VENOUS (test code = 20.8 MMOL/L 22-27 L [id number]) POC BASE EXCESS VENOUS (test code -5.2 MMOL/L -4.0-4.0 L = POCBEV) POC O2 SATURATION VENOUS (test 60.0 % 60-80 N code = SGPM6HQ) VENOUS BLOOD GAS FIO2 (test code 60 % = FIO2V) VENOUS BLOOD GAS DELIVERY (test BiPAP code = DELV) VENOUS BLOOD GAS TEMP (test code 98.6 F = TEMPV) VENOUS BLOOD GAS SITE (test code Tj Grant = SITEV) - XR CHEST 1 [id number] 00:00:[address] [facility] : 1945 Sex: F FAX:Jeffry Pennington MD [phone] [place]: St: ADM FAX: Abdiaziz Christiansen MD [phone] FAX: Solange Sawyer MD [phone] FAX: Colt Aguillon MD [phone] Name: SAÚL GILES [facility] : 1945 Age/S: 76/F [address] [place] [address] Unit #: [id number] Loc: G.2200 [place] [address] Phys: Solange Mohamud MD Acct: [id number] Dis Date: Status: ADM IN PHONE #: [phone] Exam Date: 12/21/2021 0647FAX #: [phone] Reason: CONFIRM CHEST TUBE LOCATION EXAMS: CPT CODE: [id number] XR CHEST 1 V [id number] PROCEDURE INFORMATION: Exam: XR Chest Exam date and time: 12/21/2021 5:41 AM Age: 76 years old Clinical indication: Device placement; Chest tube; Additional info: Confirm chest tube location TECHNIQUE: Imaging protocol: Radiologic exam of the chest. Views: 1 view. COMPARISON: CR XR CHEST 1V 25:40 AM FINDINGS: Tubes, catheters and devices: Support apparatus is unchanged in position. Lungs: Stable bilateral airspace opacities. Pleural spaces: Stable bilateral pleural effusions. Heart/Mediastinum: Stable cardiomediastinal silhouette. Bones/joints: Unchanged osseous structures. IMPRESSION: Stable examination. at 0700 Reported and signed by: Shemar Barnes M.D. CC: Jeffry Hsu MD; Abdiaziz Fuchs MD; Sloange Mohamud MD; Colt Vail MD Technologist: Shell Min, RT(R); Debbie Fuentes RT(R) Trnscrd Date/Time/By: 12/21/2021 (699) : By: [email or web address] Orig Print D/T: S: 12/21/2021 (699) PAGE 1 Signed Report- US RETROPERITONEAL [id number] 00:00:[address] [facility] 1945 Sex: F Name: [facility] 1945 Age/S: 76 / F [address] [place] [address] Bl Unit #: [id number] Loc: [place] [address] Phys: Jd Alva MD Acct: [id number] Dis Date: Status: ADM IN PHONE #: [phone] Exam Date: 12/21/2021 1800 FAX #: [phone] Reason: MARCELLO EXAMS: CPT CODE: [id number] US RETROPERITONEAL COM [id number] PROCEDURE INFORMATION: Exam: US Retroperitoneal; Complete; Kidneys andBladder Exam date and time: 12/21/2021 5:39 PM Age: 76 years old Clinical indication: Screening exam;Other: Marcello TECHNIQUE: Imaging protocol: Real-time ultrasound of the retroperitoneum with image documentation. Complete exam focused on the kidneys and bladder. COMPARISON: US DUP VEIN RAJAN 12/17/2021 6:12 PM FINDINGS: Right kidney: The right kidney is normal in morphology and echogenicity without hydronephrosis or cortical thinning measuring 12.4 cm in length. Left kidney: Left kidney is also partiallyobscured measuring approximately 12.4 cm in length with normal parenchymal echogenicity without hydronephrosis or cortical thinning appreciated. Aorta: The abdominal aorta and IVC are completely obscured due to overlying support tubes and lines. Urinary bladder: The bladder is not visualized and likely empty. Other findings: Patient body habitus limits evaluation. IMPRESSION: Limited exam. No sonographic abnormality of the kidneys. at 1927 Reported and signed by: Haris Chavez M.D. 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 [id number] 21:49:00 Test Item Value Reference Range Interpretation Comments SODIUM (test code = NA) 145 mEq/L 134-147 N POTASSIUM (test code = 4.4 mEq/L 3.4-5.0 N K) CHLORIDE (test code = 108 mEq/L 100-108 N CL) CARBON DIOXIDE (test 27 mEq/l 21-33 N code = CO2) ANION GAP (test code = 14 0-20 N GAP) GLUCOSE (test code = 130 mg/dL 70-110 H GLU) BLOOD UREA NITROGEN 29 mg/dL 7-18 H (test code = BUN) GLOMERULAR FILTRATION 27.2 70-80 L Units of measure = RATE (test code = GFR) ml/mi n/1.73 m2 CREATININE (test code = 1.8 mg/dL 0.6-1.3 H CREAT) CALCIUM (test code = 9.8 mg/dL 8.0-10.5 N CA) POC ARTERIAL BLOOD [id number] 21:23:00 Test Item Value Reference Range Interpretation Comments POC ARTERIAL BLOOD GAS PH (test 7.328 7.35-7.45 L code = POCPHA) POC ARTERIAL BLOOD GAS PCO2 50.9 mmHg 35.0-45 HH (test code = [id number]) POC TCO2 ARTERIAL (test code = 28.3 POCTCO2) POC ARTERIAL BLOOD GAS PO2 (test 89.7 mmHg 80-100.0 N code = HQNAF8C) POC HCO3 ARTERIAL (test code = 26.7 MMOL/L 22.0-26.0 H [id number]) POC BASE EXCESS (test code = 0.8 MMOL/L -4.0-4.0 N POCBEA) POC O2 SATURATION (test code = 96.0 % 90-100 N POCO2S) FIO2 (test code = FIO2A) 60 % PaO2/FiO2 (test code = [id number]) 149.50 mm/Hg ABG DELIVERY (test code = MAAME) BiPAP ABG VENT RESP RATE (test code = 25 /MIN RRA) ABG TIDAL VOLUME (test code = 550 ml TVA) ABG TEMPERATURE (test code = 98.7 F TEMPA) ABG SITE (test code = SITEA) Art Line BASIC METABOLIC [id number] 21:23:00 Test Item Value Reference Range Interpretation Comments SODIUM (test code = NA/ABG) 142 MEQ/L 134-147 N POTASSIUM (test code = K/ABG) 4.2 MEQ/L 3.4-5.0 N CHLORIDE (test code = CL/ABG) 107 MEQ/L 100-108 N CREATININE ABG (test code = 2.0 mg/dL 0.6-1.0 H CREAABG) POC IONIZED CALCIUM (test code = 1.32 MMOL/L 1.12-1.32 N POCCA) POC GLUCOSE (test code = POCGLU) 128 MG/DL 70-110 H HEMOGLOBIN [id number] 21:23:00 Test Item Value Reference Range Interpretation Comments HEMOGLOBIN ABG (test code = HGB/ABG) 7.8 G/DL 11.0-15.0 L [id number] 21:23:00 Test Item Value Reference Range Interpretation Comments HEMATOCRIT (test code = HCT/ABG) 23 % 33.0-45.0 L POC LACTIC [id number] 21:23:00 Test Item Value Reference Range Interpretation Comments POC LACTIC ACID (test code = 0.6 mmol/l 0.9-1.7 L POCLAC) GLUCOSE [id number] 19:21:00 Test Item Value Reference Range Interpretation Comments GLUCOSE BEDSIDE (test 136 MG/DL 70-110 H Perfor med by certified code = GLUBED) 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[facility] CBC W/AUTO [id number] 17:35:00 Test Item Value Reference Range Interpretation Comments WHITE BLOOD CELL (test code = 8.0 x10 3/uL 4.5-11.0 N WBC) RED BLOOD CELL (test code = 2.14 x10 6/uL 3.54-5.02 L RBC) HEMOGLOBIN (test code = HGB) 7.5 g/dL 11.0-15.0 L HEMATOCRIT (test code = HCT) 23.7 % 33.0-45.0 L MEAN CELL VOLUME (test code = 110.7 fL 81.0-99.0 H MCV) MEAN CELL HGB (test code = MCH) 35.0 pg 27.0-33.0 H MEAN CELL HGB CONCETRATION 31.6 g/dL 33.0-37.0 L (test code = MCHC) RED CELL DISTRIBUTION WIDTH CV 15.9 % 11.5-14.5 H (test code = RDW) RED CELL DISTRIBUTION WIDTH SD 64.4 fL 37.0-54.0 H (test code = RDW-SD) PLATELET COUNT (test code = 64 x10 3/uL 150-400 L PLT) IMMATURE PLATELET FRACTION 8.7 % 0.9-11.2 N (test code = IPF) MEAN PLATELET VOLUME (test code 11.3 fL 7.0-9.0 H = MPV) NEUTROPHIL % (test code = NT%) 87.2 % 56.0-77.0 H IMMATURE GRANULOCYTE % (test 0.6 % 0.0-2.0 N code = IG%) LYMPHOCYTE % (test code = LY%) 2.4 % 14.0-32.0 L MONOCYTE % (test code = MO%) 9.7 % 4.8-9.0 H EOSINOPHIL % (test code = EO%) 0.1 % 0.3-3.7 L BASOPHIL % (test code = BA%) 0.0 % 0.0-2.0 N NUCLEATED RBC % (test code = 0.3 % 0-0 H NRBC%) NEUTROPHIL # (test code = NT#) 6.93 x10 3/uL 2.0-7.6 N IMMATURE GRANULOCYTE # (test 0.05 x10 3/uL 0.00-0.03 H code = IG#) LYMPHOCYTE # (test code = LY#) 0.19 x10 3/uL 1.0-3.8 L MONOCYTE # (test code = MO#) 0.77 x10 3/uL 0.1-0.8 N EOSINOPHIL # (test code = EO#) 0.01 x10 3/uL 0.0-0.2 N BASOPHIL # (test code = BA#) 0.00 x10 3/uL 0.0-0.2 N NUCLEATED RBC # (test code = 0.02 x10 3/uL 0.0-0.1 N NRBC#) MANUAL DIFF REQUIRED (test code NO = MDIFF) POC ARTERIAL BLOOD [id number] 17:08:00 Test Item Value Reference Range Interpretation Comments POC ARTERIAL BLOOD GAS PH (test 7.318 7.35-7.45 L code = POCPHA) POC ARTERIAL BLOOD GAS PCO2 55.5 mmHg 35.0-45 HH (test code = [id number]) POC TCO2 ARTERIAL (test code = 30.2 POCTCO2) POC ARTERIAL BLOOD GAS PO2 (test 95.3 mmHg 80-100.0 N code = ETVMI7M) POC HCO3 ARTERIAL (test code = 28.5 MMOL/L 22.0-26.0 HH [id number]) POC BASE EXCESS (test code = 2.4 MMOL/L -4.0-4.0 N POCBEA) POC O2 SATURATION (test code = 96.5 % 90-100 N POCO2S) FIO2 (test code = FIO2A) 60 % PaO2/FiO2 (test code = [id number]) 158.83 mm/Hg ABG DELIVERY (test code = MAAME) BiPAP ABG PATIENT RESP RATE (test code 25 /MIN = RRPATA) ABG VENT RESP RATE (test code = 25 /MIN RRA) ABG TIDAL VOLUME (test code = 550 ml TVA) INSPIRATORY TIME (test code = 0.6 IT) ABG PEEP (test code = PEEPA) 6 cmH2O ABG SITE (test code = SITEA) Art Line MARTIN'S TEST (test code = N/A ALLENS) BASIC METABOLIC [id number] 17:08:00 Test Item Value Reference Range Interpretation Comments SODIUM (test code = NA/ABG) 142 MEQ/L 134-147 N POTASSIUM (test code = K/ABG) 4.3 MEQ/L 3.4-5.0 N CHLORIDE (test code = CL/ABG) 108 MEQ/L 100-108 N CREATININE ABG (test code = 1.9 mg/dL 0.6-1.0 H CREAABG) POC IONIZED CALCIUM (test code = 1.34 MMOL/L 1.12-1.32 H POCCA) POC GLUCOSE (test code = POCGLU) 136 MG/DL 70-110 H HEMOGLOBIN [id number] 17:08:00 Test Item Value Reference Range Interpretation Comments HEMOGLOBIN ABG (test code = HGB/ABG) 7.5 G/DL 11.0-15.0 L [id number] 17:08:00 Test Item Value Reference Range Interpretation Comments HEMATOCRIT (test code = HCT/ABG) 22 % 33.0-45.0 L POC LACTIC [id number] 17:08:00 Test Item Value Reference Range Interpretation Comments POC LACTIC ACID (test code = 0.7 mmol/l 0.9-1.7 L POCLAC) GLUCOSE [id number] 16:30:00 Test Item Value Reference Range Interpretation Comments GLUCOSE BEDSIDE (test 139 MG/DL 70-110 H Perfor med by certified code = GLUBED) 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[facility] POC ARTERIAL BLOOD [id number] 15:19:00 Test Item Value Reference Range Interpretation Comments POC ARTERIAL BLOOD GAS PH (test 7.318 7.35-7.45 L code = POCPHA) POC ARTERIAL BLOOD GAS PCO2 52.0 mmHg 35.0-45 HH (test code = BSUFHU7C) POC TCO2 ARTERIAL (test code = 28.3 POCTCO2) POC ARTERIAL BLOOD GAS PO2 (test 244.0 mmHg 80-100.0 HH code = BUHCE1H) POC HCO3 ARTERIAL (test code = 26.7 MMOL/L 22.0-26.0 H [id number]) POC BASE EXCESS (test code = 0.6 MMOL/L -4.0-4.0 N POCBEA) POC O2 SATURATION (test code = 99.8 % 90-100 N POCO2S) FIO2 (test code = FIO2A) 100 % PaO2/FiO2 (test code = ZOM3LOP7) 244.00 mm/Hg ABG DELIVERY (test code = MAAME) BiPAP ABG PATIENT RESP RATE (test code 25 /MIN = RRPATA) ABG VENT RESP RATE (test code = 25 /MIN RRA) ABG TIDAL VOLUME (test code = 550 ml TVA) INSPIRATORY TIME (test code = 0.6 IT) ABG PEEP (test code = PEEPA) 6 cmH2O ABG SITE (test code = SITEA) Art Line MARTIN'S TEST (test code = N/A ALLENS) BASIC METABOLIC [id number] 15:19:00 Test Item Value Reference Range Interpretation Comments SODIUM (test code = NA/ABG) 143 MEQ/L 134-147 N POTASSIUM (test code = K/ABG) 4.2 MEQ/L 3.4-5.0 N CHLORIDE (test code = CL/ABG) 109 MEQ/L 100-108 H CREATININE ABG (test code = 1.9 mg/dL 0.6-1.0 H CREAABG) POC IONIZED CALCIUM (test code = 1.33 MMOL/L 1.12-1.32 H POCCA) POC GLUCOSE (test code = POCGLU) 144 MG/DL 70-110 H HEMOGLOBIN [id number] 15:19:00 Test Item Value Reference Range Interpretation Comments HEMOGLOBIN ABG (test code = HGB/ABG) 9.8 G/DL 11.0-15.0 L [id number] 15:19:00 Test Item Value Reference Range Interpretation Comments HEMATOCRIT (test code = HCT/ABG) 29 % 33.0-45.0 L POC LACTIC [id number] 15:19:00 Test Item Value Reference Range Interpretation Comments POC LACTIC ACID (test code = 0.5 mmol/l 0.9-1.7 L POCLAC) GLUCOSE [id number] 14:02:00 Test Item Value Reference Range Interpretation Comments GLUCOSE BEDSIDE (test 167 MG/DL 70-110 H [facility] med by certified code = GLUBED) 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 [id number] 12:24:00 Test Item Value Reference Range Interpretation Comments SODIUM (test code = NA) 144 mEq/L 134-147 N POTASSIUM (test code = 4.6 mEq/L 3.4-5.0 N K) CHLORIDE (test code = 109 mEq/L 100-108 H CL) CARBON DIOXIDE (test 27 mEq/l 21-33 N code = CO2) ANION GAP (test code = 13 0-20 N GAP) GLUCOSE (test code = 182 mg/dL 70-110 H GLU) BLOOD UREA NITROGEN 26 mg/dL 7-18 H (test code = BUN) GLOMERULAR FILTRATION 29.1 70-80 L Units of measure = RATE (test code = GFR) ml/mi n/1.73 m2 CREATININE (test code = 1.7 mg/dL 0.6-1.3 H CREAT) CALCIUM (test code = 9.2 mg/dL 8.0-10.5 N CA) URINALYSIS [id number] 12:23:00 Test Item Value Reference Range Interpretation Comments UA COLOR (test code = COLU) YELLOW YEL/STRAW UA APPEARANCE (test code = APPU) CLOUDY CLEAR A UA GLUCOSE DIPSTICK (test code = NEGATIVE NEGATIVE DGLUU) UA BILIRUBIN DIPSTICK (test code = NEGATIVE NEGATIVE BILU) UA KETONE DIPSTICK (test code = 1+ NEGATIVE A KETU) UA SPECIFIC GRAVITY (test code = 1.030 1.005-1.030 N SGU) UA BLOOD DIPSTICK (test code = LALY) 4+ NEGATIVE A UA PH DIPSTICK (test code = CLEMENTINA) 5.0 5.0-7.0 N UA PROTEIN DIPSTICK (test code = 2+ NEGATIVE A PROU) UA UROBILINIOGEN DIPSTICK (test 0.2 mg/dL 0.2-1.0 code = URO) UA NITRITE DIPSTICK (test code = NEGATIVE NEGATIVE SAMARIA) UA LEUKOCYTE ESTERASE DIPSTICK 3+ NEGATIVE A (test code = LEUU) UR SODIUM [id number] 12:23:00 Test Item Value Reference Range Interpretation Comments UR SODIUM RANDOM < 10 MEQ/L The Referen ce Range and (test code = Method Performa nce JESUS) specificationsh ave not been established for this fluid. The test result should be correlated into the clinical contex t forinterpretati on. UR CREATININE [id number] 12:23:00 Test Item Value Reference Range Interpretation Comments UR CREATININE 116.2 mg/dL The Reference Range and RANDOM (test code Method Per formance = CREATU) specificationsh ave not been establishe d for this fluid. The test resultshould be correlated into the clinical contex t forinterpretati on. 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[facility] POC ARTERIAL BLOOD [id number] 12:10:00 Test Item Value Reference Range Interpretation Comments POC ARTERIAL BLOOD GAS PH (test 7.291 7.35-7.45 LL code = POCPHA) POC ARTERIAL BLOOD GAS PCO2 59.2 mmHg 35.0-45 HH (test code = ZOGUGS6N) POC TCO2 ARTERIAL (test code = 30.7 POCTCO2) POC ARTERIAL BLOOD GAS PO2 (test 137.8 mmHg 80-100.0 H code = BTGVL3J) POC HCO3 ARTERIAL (test code = 28.8 MMOL/L 22.0-26.0 HH CVSQAA5I) POC BASE EXCESS (test code = 2.1 MMOL/L -4.0-4.0 N POCBEA) POC O2 SATURATION (test code = 98.8 % 90-100 N POCO2S) FIO2 (test code = FIO2A) 100 % PaO2/FiO2 (test code = CNU8YLR9) 137.80 mm/Hg ABG DELIVERY (test code = MAAME) CPAP ABG VENT RESP RATE (test code = 25 /MIN RRA) ABG TIDAL VOLUME (test code = 550 ml TVA) ABG PEEP (test code = PEEPA) 6 cmH2O ABG PRESSURE SUPPORT (test code 20 cmH2O = PSABG) ABG TEMPERATURE (test code = 97.3 F TEMPA) ABG SITE (test code = SITEA) Art Line BASIC METABOLIC [id number] 12:10:00 Test Item Value Reference Range Interpretation Comments SODIUM (test code = NA/ABG) 142 MEQ/L 134-147 N POTASSIUM (test code = K/ABG) 4.5 MEQ/L 3.4-5.0 N CHLORIDE (test code = CL/ABG) 108 MEQ/L 100-108 N CREATININE ABG (test code = 2.0 mg/dL 0.6-1.0 H CREAABG) POC IONIZED CALCIUM (test code = 1.36 MMOL/L 1.12-1.32 H POCCA) POC GLUCOSE (test code = POCGLU) 175 MG/DL 70-110 H HEMOGLOBIN [id number] 12:10:00 Test Item Value Reference Range Interpretation Comments HEMOGLOBIN ABG (test code = HGB/ABG) 8.3 G/DL 11.0-15.0 L [id number] 12:10:00 Test Item Value Reference Range Interpretation Comments HEMATOCRIT (test code = HCT/ABG) 24 % 33.0-45.0 L POC LACTIC [id number] 12:10:00 Test Item Value Reference Range Interpretation Comments POC LACTIC ACID (test code = 0.6 mmol/l 0.9-1.7 L POCLAC) POC ARTERIAL BLOOD [id number] 09:48:00 Test Item Value Reference Range Interpretation Comments POC ARTERIAL BLOOD GAS PH (test 7.239 7.35-7.45 LL code = POCPHA) POC ARTERIAL BLOOD GAS PCO2 (test 67.0 mmHg 35.0-45 HH code = XJIQOX3E) POC TCO2 ARTERIAL (test code = 30.7 POCTCO2) POC ARTERIAL BLOOD GAS PO2 (test 90.6 mmHg 80-100.0 N code = QPQBW2F) POC HCO3 ARTERIAL (test code = 28.6 MMOL/L 22.0-26.0 HH [id number]) POC BASE EXCESS (test code = 1.2 MMOL/L -4.0-4.0 N POCBEA) POC O2 SATURATION (test code = 94.9 % 90-100 N POCO2S) FIO2 (test code = FIO2A) 100 % PaO2/FiO2 (test code = [id number]) 90.60 mm/Hg ABG DELIVERY (test code = MAAME) BiPAP ABG VENT MODE (test code = MODEA) BiLevel ABG PATIENT RESP RATE (test code 26 /MIN = RRPATA) ABG VENT RESP RATE (test code = 26 /MIN RRA) INSPIRATORY TIME (test code = IT) 1 ABG PEEP (test code = PEEPA) 5 cmH2O ABG PRESSURE SUPPORT (test code = 15 cmH2O PSABG) ABG SITE (test code = SITEA) Art Line MARTIN'S TEST (test code = ALLENS) N/A BASIC METABOLIC [id number] 09:48:00 Test Item Value Reference Range Interpretation Comments SODIUM (test code = NA/ABG) 141 MEQ/L 134-147 N POTASSIUM (test code = K/ABG) 4.4 MEQ/L 3.4-5.0 N CHLORIDE (test code = CL/ABG) 110 MEQ/L 100-108 H CREATININE ABG (test code = 1.8 mg/dL 0.6-1.0 H CREAABG) POC IONIZED CALCIUM (test code = 1.28 MMOL/L 1.12-1.32 N POCCA) POC GLUCOSE (test code = POCGLU) 170 MG/DL 70-110 H HEMOGLOBIN [id number] 09:48:00 Test Item Value Reference Range Interpretation Comments HEMOGLOBIN ABG (test code = HGB/ABG) 7.6 G/DL 11.0-15.0 L [id number] 09:48:00 Test Item Value Reference Range Interpretation Comments HEMATOCRIT (test code = HCT/ABG) 22 % 33.0-45.0 L POC LACTIC [id number] 09:48:00 Test Item Value Reference Range Interpretation Comments POC LACTIC ACID (test code = 0.8 mmol/l 0.9-1.7 L POCLAC) GLUCOSE [id number] 09:10:00 Test Item Value Reference Range Interpretation Comments GLUCOSE BEDSIDE (test 191 MG/DL 70-110 H [facility] med by certified code = GLUBED) 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 [id number] 04:02:00 Test Item Value Reference Range Interpretation Comments SODIUM (test code = NA) 144 mEq/L 134-147 N POTASSIUM (test code = 4.8 mEq/L 3.4-5.0 N K) CHLORIDE (test code = 108 mEq/L 100-108 N CL) CARBON DIOXIDE (test 28 mEq/l 21-33 N code = CO2) ANION GAP (test code = 12 0-20 N GAP) GLUCOSE (test code = 179 mg/dL 70-110 H GLU) BLOOD UREA NITROGEN 21 mg/dL 7-18 H (test code = BUN) GLOMERULAR FILTRATION 36.4 70-80 L Units of measure = RATE (test code = GFR) ml/mi n/1.73 m2 CREATININE (test code = 1.4 mg/dL 0.6-1.3 H CREAT) CALCIUM (test code = 9.4 mg/dL 8.0-10.5 N CA) COMMENTS: POD #1HEPATIC FUNCTION [id number] 04:02:00 Test Item Value Reference Range Interpretation Comments TOTAL PROTEIN (test code = PROT) 6.1 g/dL 6.4-8.2 L ALBUMIN (test code = ALB) 4.30 g/dL 3.4-5.0 N BILIRUBIN TOTAL (test code = BILT) 0.60 mg/dL 0.0-1.0 BILIRUBIN DIRECT (test code = 0.40 MG/DL 0.0-0.30 H BILD) BILIRUBIN INDIRECT (test code = 0.20 MG/DL BILIND) SGOT/AST (test code = AST) 40 IUnit/L 15-37 H SGPT/ALT (test code = ALT) 8 IUnit/L 30-65 L ALKALINE PHOSPHATASE TOTAL (test 38 IUnit/L 20-125 N code = ALKP) COMMENTS: POD #[id number] 04:02:00 Test Item Value Reference Range Interpretation Comments MAGNESIUM (test code = MAG) 2.32 mg/dL 1.80-2.40 N COMMENTS: POD #1PROTHROMBIN [id number] 03:45:00 Test Item Value Reference Range Interpretation Comments PROTHROMBIN TIME 14.9 SECONDS 9.3-12.9 H PATIENT (test code = PTP) INTERNATIONAL NORMAL 1.3 0.8-1.2 H TARGET INR BY RATIO (test code = INDICATIO N Indication INR) INR1. Prophylax is of venous thrombos is 2.0 - 3.0 (orthoped ic surgery), Proph ylaxis of venous throm bosis (other than hig h-risk surgery), Treat ment of Deep Vein Thrombosis/Pulm onary Embolism, Preve ntion of systemic emb olism - Tissue heart va lves, Acute Myocardia l Infarction (to prevent systemic emboli sm), Valvular heart disease, Atrial Fibrillation, Bileaflet mecha nical valve in aortic position.2. Mec hanical prosthetic valv es (high risk), 2. 5 - 3.5 Presence of Lup us Anticoagulant o r Antiphospholipi d Antibodies, Pre vention of systemic emb olism - Acute Myocardia l Infarction (to prevent recurrent infar ct). THROMBOPLASTIN TIME [id number] 03:45:00 Test Item Value Reference Range Interpretation Comments THROMBOPLASTIN TIME 25.0 Seconds 25.0-39.5 N Therape utic Range: PARTIAL (test code = 50.4 - 88.3 Seconds PTT) Effective 06/28/2018 [id number] 03:45:00 Test Item Value Reference Range Interpretation Comments FIBRINOGEN (test 278 MG/DL 160-450 N Excess admi nistration of code = FIB) anticoagulants and/or FibrinDegradati on Products may af fect Fibrinogen valu e. CBC W/AUTO [id number] 03:36:00 Test Item Value Reference Range Interpretation Comments WHITE BLOOD CELL (test code = 7.1 x10 3/uL 4.5-11.0 N WBC) RED BLOOD CELL (test code = 2.03 x10 6/uL 3.54-5.02 L RBC) HEMOGLOBIN (test code = HGB) 7.2 g/dL 11.0-15.0 L HEMATOCRIT (test code = HCT) 22.6 % 33.0-45.0 L MEAN CELL VOLUME (test code = 111.3 fL 81.0-99.0 H MCV) MEAN CELL HGB (test code = MCH) 35.5 pg 27.0-33.0 H MEAN CELL HGB CONCETRATION 31.9 g/dL 33.0-37.0 L (test code = MCHC) RED CELL DISTRIBUTION WIDTH CV 16.0 % 11.5-14.5 H (test code = RDW) RED CELL DISTRIBUTION WIDTH SD 65.0 fL 37.0-54.0 H (test code = RDW-SD) PLATELET COUNT (test code = 65 x10 3/uL 150-400 L PLT) IMMATURE PLATELET FRACTION 8.3 % 0.9-11.2 N (test code = IPF) MEAN PLATELET VOLUME (test code 11.2 fL 7.0-9.0 H = MPV) NEUTROPHIL % (test code = NT%) 87.7 % 56.0-77.0 H IMMATURE GRANULOCYTE % (test 0.6 % 0.0-2.0 N code = IG%) LYMPHOCYTE % (test code = LY%) 3.5 % 14.0-32.0 L MONOCYTE % (test code = MO%) 8.1 % 4.8-9.0 N EOSINOPHIL % (test code = EO%) 0.0 % 0.3-3.7 L BASOPHIL % (test code = BA%) 0.1 % 0.0-2.0 N NUCLEATED RBC % (test code = 0.0 % 0-0 N NRBC%) NEUTROPHIL # (test code = NT#) 6.25 x10 3/uL 2.0-7.6 N IMMATURE GRANULOCYTE # (test 0.04 x10 3/uL 0.00-0.03 H code = IG#) LYMPHOCYTE # (test code = LY#) 0.25 x10 3/uL 1.0-3.8 L MONOCYTE # (test code = MO#) 0.58 x10 3/uL 0.1-0.8 N EOSINOPHIL # (test code = EO#) 0.00 x10 3/uL 0.0-0.2 N BASOPHIL # (test code = BA#) 0.01 x10 3/uL 0.0-0.2 N NUCLEATED RBC # (test code = 0.00 x10 3/uL 0.0-0.1 N NRBC#) MANUAL DIFF REQUIRED (test code NO = MDIFF) POC ARTERIAL BLOOD [id number] 03:22:00 Test Item Value Reference Range Interpretation Comments POC ARTERIAL BLOOD GAS PH (test 7.278 7.35-7.45 LL code = POCPHA) POC ARTERIAL BLOOD GAS PCO2 66.1 mmHg 35.0-45 HH (test code = [id number]) POC TCO2 ARTERIAL (test code = 32.8 POCTCO2) POC ARTERIAL BLOOD GAS PO2 (test 70.0 mmHg 80-100.0 L code = VTRCJ1X) POC HCO3 ARTERIAL (test code = 30.8 MMOL/L 22.0-26.0 HH [id number]) POC BASE EXCESS (test code = 4.1 MMOL/L -4.0-4.0 H POCBEA) POC O2 SATURATION (test code = 90.4 % 90-100 N POCO2S) FIO2 (test code = FIO2A) 60 % PaO2/FiO2 (test code = [id number]) 116.66 mm/Hg ABG PEEP (test code = PEEPA) 5 cmH2O ABG TEMPERATURE (test code = 98.9 F TEMPA) ABG SITE (test code = SITEA) Art Line BASIC METABOLIC [id number] 03:22:00 Test Item Value Reference Range Interpretation Comments SODIUM (test code = NA/ABG) 142 MEQ/L 134-147 N POTASSIUM (test code = K/ABG) 4.6 MEQ/L 3.4-5.0 N CHLORIDE (test code = CL/ABG) 108 MEQ/L 100-108 N CREATININE ABG (test code = 1.4 mg/dL 0.6-1.0 H CREAABG) POC IONIZED CALCIUM (test code = 1.33 MMOL/L 1.12-1.32 H POCCA) POC GLUCOSE (test code = POCGLU) 172 MG/DL 70-110 H HEMOGLOBIN [id number] 03:22:00 Test Item Value Reference Range Interpretation Comments HEMOGLOBIN ABG (test code = HGB/ABG) 7.2 G/DL 11.0-15.0 L [id number] 03:22:00 Test Item Value Reference Range Interpretation Comments HEMATOCRIT (test code = HCT/ABG) 21 % 33.0-45.0 L POC LACTIC [id number] 03:22:00 Test Item Value Reference Range Interpretation Comments POC LACTIC ACID (test code = 0.8 mmol/l 0.9-1.7 L POCLAC) - XR CHEST 1 [id number] 00:00:[address] [facility] 1945 Sex: F FAX:Jeffry Pennington MD [phone] [place]: [address]: ADM FAX: Abdiaziz Christiansen MD [phone] FAX: René Blancas [phone] FAX: Colt Aguillon MD [phone] Name: SAÚL GILES [facility] : 1945 Age/S: 76/F [address] [place] [address] Unit #: [id number] Loc: [place] [address] Phys: René Villareal MD Acct: [id number] Dis Date: Status: ADM IN PHONE #: [phone] Exam Date: FAX #: [phone] Reason: Cardiac Surgery Post Op EXAMS: CPT CODE: [id number] XR CHEST 1 V [id number] PROCEDURE INFORMATION: Exam: XR Chest Exam date and time: 12/20/2021 5:40 AM Age: 76 years old Clinical indication: Other: Cardiac surgery post op TECHNIQUE: Imaging protocol: Radiologic exam of the chest. Views: 1 view. COMPARISON: CR XR CHEST 1V 12/20/2021 12:08 AM FINDINGS: Tubes, catheters and devices: Right IJ catheter remains in place with [place] terminating in the region of the main pulmonary artery. Lungs: Persistent bibasilar pulmonary opacities. Preps mild pulmonary vascular congestion. Appearance is similar previous study. No new airspace disease. Pleural spaces: Likely small pleural effusions. No pneumothorax. Heart/Mediastinum: The heart is enlarged, unchanged. Status post mediansternotomy. Pacer/ICD device and valve replacement noted. Mediastinal support drains noted. Bones/joints: Unchanged. Soft tissues: Unchanged IMPRESSION: Stable radiographic appearance of the chest. E lectronically Signed by Cheng Berumen on 12/20/2021 at 0713 Reported and signed by: Demian Berumen M.D. CC: Jeffry Hsu MD; Abdiaziz Fuchs MD; René Villareal MD; Colt Vail MD Technologist: Xenia Bashir, RT(R); Shell Min RT(R) Trnscrd Date/Time/By: 12/20/2021 (712) : By: [email or web address] Orig Print D/T: S: 12/20/2021 (712) PAGE 1 Signed Report- XR CHEST 1 [id number] 00:00:[address] [facility] : 1945 Sex: F FAX: Jeffry Pennington MD [phone] [place]: St: ADM FAX: Abdiaziz Christiansen MD [phone] FAX: Javi Elizondo MD [phone] FAX: Colt Aguillon MD [phone] Name: SAÚL GILES [facility] : 1945 Age/S:76/F [address] [place] [address] Unit #: [id number] Loc: [address] [address] Phys: Javi Elizondo MD Acct: [id number] Dis Date: Status: ADM IN PHONE #: [phone] Exam Date: 12/19/202110 FAX #: [phone] Reason: resp failurre, post MVR EXAMS: CPT CODE: [id number] XR CHEST 1 V 21131 PROCEDURE INFORMATION: Exam: XR Chest Exam date and time: 12/20/2021 12:08 AM Age: 76 years old Clinical indication: Other: Resp failurre, post mvr TECHNIQUE: Imaging protocol: Radiologic exam of the chest. Views: 1 view. COMPARISON: CR XR CHEST 1V 12/19/2021 1:17 PM FINDINGS: Tubes, catheters and devices: Support apparatus is unchanged in position. Lungs: Stable bilateral airspace opacities. Pleural spaces: Stable bilateral pleural effusions. Heart/Mediastinum: Stable cardiomediastinal silhouette. Bones/joints: Unchanged osseous structures. IMPRESSION: Stable examination. at 0142 Reported and signed by: Shemar Barnes M.D. CC: Jeffry Hsu MD; Abdiaziz Fuchs MD; Javi Elizondo MD; Colt Vail MD Technologist: RT Payton(R) Trnscrd Date/Time/By: 12/20/2021 (141) : By: [email or web address] Orig Print D/T: S: 12/20/2021 (0143) PAGE 1 S igned ReportBASIC METABOLIC [id number] 23:41:00 Test Item Value Reference Range Interpretation Comments SODIUM (test code = NA) 146 mEq/L 134-147 N POTASSIUM (test code = 4.8 mEq/L 3.4-5.0 K) CHLORIDE (test code = 108 mEq/L 100-108 N CL) CARBON DIOXIDE (test 29 mEq/l 21-33 N code = CO2) ANION GAP (test code = 14 0-20 N GAP) GLUCOSE (test code = 186 mg/dL 70-110 H GLU) BLOOD UREA NITROGEN 21 mg/dL 7-18 H (test code = BUN) GLOMERULAR FILTRATION 48.0 70-80 L Units of measure = RATE (test code = GFR) ml/mi n/1.73 m2 CREATININE (test code = 1.1 mg/dL 0.6-1.3 CREAT) CALCIUM (test code = 9.1 mg/dL 8.0-10.5 N CA) [id number] 23:41:00 Test Item Value Reference Range Interpretation Comments PHOSPHOROUS (test code = PHOS) 3.9 MG/DL 2.5-4.9 N [id number] 23:41:00 Test Item Value Reference Range Interpretation Comments MAGNESIUM (test code = MAG) 2.45 mg/dL 1.80-2.40 H CALCIUM [id number] 23:41:00 Test Item Value Reference Range Interpretation Comments CALCIUM IONIZED (test code = TYREE) 1.16 MMOL/L 1.09-1.30 N CBC W/AUTO [id number] 23:20:00 Test Item Value Reference Range Interpretation Comments WHITE BLOOD CELL (test code = 6.7 x10 3/uL 4.5-11.0 N WBC) RED BLOOD CELL (test code = 2.00 x10 6/uL 3.54-5.02 L RBC) HEMOGLOBIN (test code = HGB) 7.5 g/dL 11.0-15.0 L HEMATOCRIT (test code = HCT) 22.4 % 33.0-45.0 L MEAN CELL VOLUME (test code = 112.0 fL 81.0-99.0 H MCV) MEAN CELL HGB (test code = MCH) 37.5 pg 27.0-33.0 H MEAN CELL HGB CONCETRATION 33.5 g/dL 33.0-37.0 N (test code = MCHC) RED CELL DISTRIBUTION WIDTH CV 16.1 % 11.5-14.5 H (test code = RDW) RED CELL DISTRIBUTION WIDTH SD 64.0 fL 37.0-54.0 H (test code = RDW-SD) PLATELET COUNT (test code = 62 x10 3/uL 150-400 L PLT) IMMATURE PLATELET FRACTION 6.5 % 0.9-11.2 N (test code = IPF) MEAN PLATELET VOLUME (test code 12.0 fL 7.0-9.0 H = MPV) NEUTROPHIL % (test code = NT%) 89.4 % 56.0-77.0 H IMMATURE GRANULOCYTE % (test 0.4 % 0.0-2.0 N code = IG%) LYMPHOCYTE % (test code = LY%) 2.5 % 14.0-32.0 L MONOCYTE % (test code = MO%) 7.6 % 4.8-9.0 N EOSINOPHIL % (test code = EO%) 0.0 % 0.3-3.7 L BASOPHIL % (test code = BA%) 0.1 % 0.0-2.0 N NUCLEATED RBC % (test code = 0.0 % 0-0 N NRBC%) NEUTROPHIL # (test code = NT#) 5.95 x10 3/uL 2.0-7.6 N IMMATURE GRANULOCYTE # (test 0.03 x10 3/uL 0.00-0.03 N code = IG#) LYMPHOCYTE # (test code = LY#) 0.17 x10 3/uL 1.0-3.8 L MONOCYTE # (test code = MO#) 0.51 x10 3/uL 0.1-0.8 N EOSINOPHIL # (test code = EO#) 0.00 x10 3/uL 0.0-0.2 N BASOPHIL # (test code = BA#) 0.01 x10 3/uL 0.0-0.2 N NUCLEATED RBC # (test code = 0.00 x10 3/uL 0.0-0.1 N NRBC#) MANUAL DIFF REQUIRED (test code NO = MDIFF) POC ARTERIAL BLOOD [id number] 22:55:00 Test Item Value Reference Range Interpretation Comments POC ARTERIAL BLOOD GAS PH (test 7.301 7.35-7.45 L code = POCPHA) POC ARTERIAL BLOOD GAS PCO2 61.1 mmHg 35.0-45 HH (test code = [id number]) POC TCO2 ARTERIAL (test code = 32.0 POCTCO2) POC ARTERIAL BLOOD GAS PO2 (test 103.3 mmHg 80-100.0 H code = YATMA5T) POC HCO3 ARTERIAL (test code = 30.1 MMOL/L 22.0-26.0 HH [id number]) POC BASE EXCESS (test code = 3.7 MMOL/L -4.0-4.0 N POCBEA) POC O2 SATURATION (test code = 97.0 % 90-100 N POCO2S) FIO2 (test code = FIO2A) 60 % PaO2/FiO2 (test code = [id number]) 172.16 mm/Hg ABG DELIVERY (test code = MAAME) BiPAP ABG PEEP (test code = PEEPA) 5 cmH2O ABG TEMPERATURE (test code = 98.8 F TEMPA) ABG SITE (test code = SITEA) Art Line BASIC METABOLIC [id number] 22:55:00 Test Item Value Reference Range Interpretation Comments SODIUM (test code = NA/ABG) 143 MEQ/L 134-147 N POTASSIUM (test code = K/ABG) 4.7 MEQ/L 3.4-5.0 N CHLORIDE (test code = CL/ABG) 108 MEQ/L 100-108 N CREATININE ABG (test code = 1.2 mg/dL 0.6-1.0 H CREAABG) POC IONIZED CALCIUM (test code = 1.29 MMOL/L 1.12-1.32 N POCCA) POC GLUCOSE (test code = POCGLU) 178 MG/DL 70-110 H HEMOGLOBIN [id number] 22:55:00 Test Item Value Reference Range Interpretation Comments HEMOGLOBIN ABG (test code = HGB/ABG) 7.5 G/DL 11.0-15.0 L [id number] 22:55:00 Test Item Value Reference Range Interpretation Comments HEMATOCRIT (test code = HCT/ABG) 22 % 33.0-45.0 L POC LACTIC [id number] 22:55:00 Test Item Value Reference Range Interpretation Comments POC LACTIC ACID (test code = 0.8 mmol/l 0.9-1.7 L POCLAC) POC ARTERIAL BLOOD [id number] 21:08:00 Test Item Value Reference Range Interpretation Comments POC ARTERIAL BLOOD GAS PH (test 7.284 7.35-7.45 LL code = POCPHA) POC ARTERIAL BLOOD GAS PCO2 68.4 mmHg 35.0-45 HH (test code = FDEKQL7U) POC TCO2 ARTERIAL (test code = 34.4 POCTCO2) POC ARTERIAL BLOOD GAS PO2 (test 82.3 mmHg 80-100.0 N code = RSREZ7B) POC HCO3 ARTERIAL (test code = 32.4 MMOL/L 22.0-26.0 HH RIYQWN2R) POC BASE EXCESS (test code = 5.7 MMOL/L -4.0-4.0 H POCBEA) POC O2 SATURATION (test code = 93.8 % 90-100 N POCO2S) FIO2 (test code = FIO2A) 60 % PaO2/FiO2 (test code = [id number]) 137.16 mm/Hg ABG PEEP (test code = PEEPA) 5 cmH2O ABG TEMPERATURE (test code = 99 F TEMPA) ABG SITE (test code = SITEA) Art Line BASIC METABOLIC [id number] 21:08:00 Test Item Value Reference Range Interpretation Comments SODIUM (test code = NA/ABG) 143 MEQ/L 134-147 N POTASSIUM (test code = K/ABG) 4.6 MEQ/L 3.4-5.0 N CHLORIDE (test code = CL/ABG) 108 MEQ/L 100-108 N CREATININE ABG (test code = 1.2 mg/dL 0.6-1.0 H CREAABG) POC IONIZED CALCIUM (test code = 1.33 MMOL/L 1.12-1.32 H POCCA) POC GLUCOSE (test code = POCGLU) 163 MG/DL 70-110 H HEMOGLOBIN [id number] 21:08:00 Test Item Value Reference Range Interpretation Comments HEMOGLOBIN ABG (test code = HGB/ABG) 7.9 G/DL 11.0-15.0 L [id number] 21:08:00 Test Item Value Reference Range Interpretation Comments HEMATOCRIT (test code = HCT/ABG) 23 % 33.0-45.0 L POC LACTIC [id number] 21:08:00 Test Item Value Reference Range Interpretation Comments POC LACTIC ACID (test code = 0.7 mmol/l 0.9-1.7 L POCLAC) POC ARTERIAL BLOOD [id number] 20:09:00 Test Item Value Reference Range Interpretation Comments POC ARTERIAL BLOOD GAS PH (test 7.283 7.35-7.45 LL code = POCPHA) POC ARTERIAL BLOOD GAS PCO2 68.1 mmHg 35.0-45 HH (test code = LTHSIT6A) POC TCO2 ARTERIAL (test code = 34.2 POCTCO2) POC ARTERIAL BLOOD GAS PO2 (test 78.8 mmHg 80-100.0 L code = DCNOO2G) POC HCO3 ARTERIAL (test code = 32.1 MMOL/L 22.0-26.0 HH PNLSIV0K) POC BASE EXCESS (test code = 5.5 MMOL/L -4.0-4.0 H POCBEA) POC O2 SATURATION (test code = 93.0 % 90-100 N POCO2S) FIO2 (test code = FIO2A) 60 % PaO2/FiO2 (test code = ZLU0SSW0) 131.33 mm/Hg ABG DELIVERY (test code = MAAME) BiPAP ABG PEEP (test code = PEEPA) 578 cmH2O ABG TEMPERATURE (test code = 99 F TEMPA) ABG SITE (test code = SITEA) Art Line BASIC METABOLIC [id number] 20:09:00 Test Item Value Reference Range Interpretation Comments SODIUM (test code = NA/ABG) 142 MEQ/L 134-147 N POTASSIUM (test code = K/ABG) 4.5 MEQ/L 3.4-5.0 N CHLORIDE (test code = CL/ABG) 109 MEQ/L 100-108 H CREATININE ABG (test code = 1.1 mg/dL 0.6-1.0 H CREAABG) POC IONIZED CALCIUM (test code = 1.31 MMOL/L 1.12-1.32 N POCCA) POC GLUCOSE (test code = POCGLU) 171 MG/DL 70-110 H HEMOGLOBIN [id number] 20:09:00 Test Item Value Reference Range Interpretation Comments HEMOGLOBIN ABG (test code = HGB/ABG) 7.8 G/DL 11.0-15.0 L [id number] 20:09:00 Test Item Value Reference Range Interpretation Comments HEMATOCRIT (test code = HCT/ABG) 23 % 33.0-45.0 L POC LACTIC [id number] 20:09:00 Test Item Value Reference Range Interpretation Comments POC LACTIC ACID (test code = 0.8 mmol/l 0.9-1.7 L POCLAC) POC ARTERIAL BLOOD [id number] 19:05:00 Test Item Value Reference Range Interpretation Comments POC ARTERIAL BLOOD GAS PH (test 7.276 7.35-7.45 LL code = POCPHA) POC ARTERIAL BLOOD GAS PCO2 65.7 mmHg 35.0-45 HH (test code = KXEWQG4L) POC TCO2 ARTERIAL (test code = 32.6 POCTCO2) POC ARTERIAL BLOOD GAS PO2 (test 203.2 mmHg 80-100.0 HH code = WGRHX3I) POC HCO3 ARTERIAL (test code = 30.6 MMOL/L 22.0-26.0 HH PLYUTP4N) POC BASE EXCESS (test code = 3.8 MMOL/L -4.0-4.0 N POCBEA) POC O2 SATURATION (test code = 99.6 % 90-100 N POCO2S) FIO2 (test code = FIO2A) 80 % PaO2/FiO2 (test code = [id number]) 254.00 mm/Hg ABG DELIVERY (test code = MAAME) BiPAP ABG VENT MODE (test code = CPAP/PS MODEA) ABG PRESSURE SUPPORT (test code 14 cmH2O = PSABG) ABG TEMPERATURE (test code = 98.6 F TEMPA) ABG SITE (test code = SITEA) Art Line MARTIN'S TEST (test code = N/A LUCIO) BASIC METABOLIC [id number] 19:05:00 Test Item Value Reference Range Interpretation Comments SODIUM (test code = NA/ABG) 146 MEQ/L 134-147 N POTASSIUM (test code = K/ABG) 4.4 MEQ/L 3.4-5.0 N CHLORIDE (test code = CL/ABG) 108 MEQ/L 100-108 N CREATININE ABG (test code = 0.9 mg/dL 0.6-1.0 N CREAABG) POC IONIZED CALCIUM (test code = 1.29 MMOL/L 1.12-1.32 N POCCA) POC GLUCOSE (test code = POCGLU) 159 MG/DL 70-110 H HEMOGLOBIN [id number] 19:05:00 Test Item Value Reference Range Interpretation Comments HEMOGLOBIN ABG (test code = HGB/ABG) 8.2 G/DL 11.0-15.0 L [id number] 19:05:00 Test Item Value Reference Range Interpretation Comments HEMATOCRIT (test code = HCT/ABG) 24 % 33.0-45.0 L POC LACTIC [id number] 19:05:00 Test Item Value Reference Range Interpretation Comments POC LACTIC ACID (test code = 0.5 mmol/l 0.9-1.7 L POCLAC) POC ARTERIAL BLOOD [id number] 16:53:00 Test Item Value Reference Range Interpretation Comments POC ARTERIAL BLOOD GAS PH (test 7.333 7.35-7.45 L code = POCPHA) POC ARTERIAL BLOOD GAS PCO2 56.4 mmHg 35.0-45 HH (test code = ANSVOM0M) POC TCO2 ARTERIAL (test code = 31.6 POCTCO2) POC ARTERIAL BLOOD GAS PO2 (test 99.2 mmHg 80-100.0 N code = QWBLH9E) POC HCO3 ARTERIAL (test code = 29.9 MMOL/L 22.0-26.0 HH KTXYTI6E) POC BASE EXCESS (test code = 4.0 MMOL/L -4.0-4.0 N POCBEA) POC O2 SATURATION (test code = 97.0 % 90-100 N POCO2S) FIO2 (test code = FIO2A) 50 % PaO2/FiO2 (test code = PPX8AIQ5) 198.40 mm/Hg ABG VENT MODE (test code = AC MODEA) ABG PEEP (test code = PEEPA) 5 cmH2O ABG PRESSURE SUPPORT (test code 10 cmH2O = PSABG) ABG SITE (test code = SITEA) Art Line BASIC METABOLIC [id number] 16:53:00 Test Item Value Reference Range Interpretation Comments SODIUM (test code = NA/ABG) 143 MEQ/L 134-147 N POTASSIUM (test code = K/ABG) 4.4 MEQ/L 3.4-5.0 N CHLORIDE (test code = CL/ABG) 108 MEQ/L 100-108 N CREATININE ABG (test code = 0.9 mg/dL 0.6-1.0 N CREAABG) POC IONIZED CALCIUM (test code = 1.23 MMOL/L 1.12-1.32 N POCCA) POC GLUCOSE (test code = POCGLU) 125 MG/DL 70-110 H HEMOGLOBIN [id number] 16:53:00 Test Item Value Reference Range Interpretation Comments HEMOGLOBIN ABG (test code = HGB/ABG) 8.3 G/DL 11.0-15.0 L [id number] 16:53:00 Test Item Value Reference Range Interpretation Comments HEMATOCRIT (test code = HCT/ABG) 24 % 33.0-45.0 L POC LACTIC [id number] 16:53:00 Test Item Value Reference Range Interpretation Comments POC LACTIC ACID (test code = 0.9 mmol/l 0.9-1.7 N POCLAC) LACTIC ACID [id number] 15:09:00 Test Item Value Reference Range Interpretation Comments LACTIC ACID REPEAT (test code = 1.8 mmol/l 0.4-1.9 N LACTR) POC ARTERIAL BLOOD [id number] 14:56:00 Test Item Value Reference Range Interpretation Comments POC ARTERIAL BLOOD GAS PH (test 7.482 7.35-7.45 H code = POCPHA) POC ARTERIAL BLOOD GAS PCO2 37.2 mmHg 35.0-45 N (test code = PDANCZ4O) POC TCO2 ARTERIAL (test code = 29.1 POCTCO2) POC ARTERIAL BLOOD GAS PO2 (test 62.0 mmHg 80-100.0 L code = VKEEM5A) POC HCO3 ARTERIAL (test code = 27.9 MMOL/L 22.0-26.0 H JQIKRG1A) POC BASE EXCESS (test code = 4.3 MMOL/L -4.0-4.0 H POCBEA) POC O2 SATURATION (test code = 93.5 % 90-100 N POCO2S) FIO2 (test code = FIO2A) 40 % PaO2/FiO2 (test code = DYG5PKU3) 155.00 mm/Hg ABG DELIVERY (test code = MAAME) Adult Vent ABG VENT MODE (test code = AC MODEA) ABG VENT RESP RATE (test code = 24 /MIN RRA) ABG TIDAL VOLUME (test code = 450 ml TVA) ABG PEEP (test code = PEEPA) 5 cmH2O ABG TEMPERATURE (test code = 97.7 F TEMPA) ABG SITE (test code = SITEA) Art Line MARTIN'S TEST (test code = N/A ALLENS) BASIC METABOLIC [id number] 14:56:00 Test Item Value Reference Range Interpretation Comments SODIUM (test code = NA/ABG) 144 MEQ/L 134-147 N POTASSIUM (test code = K/ABG) 4.3 MEQ/L 3.4-5.0 N CHLORIDE (test code = CL/ABG) 106 MEQ/L 100-108 N CREATININE ABG (test code = 0.9 mg/dL 0.6-1.0 N CREAABG) POC IONIZED CALCIUM (test code = 1.27 MMOL/L 1.12-1.32 N POCCA) POC GLUCOSE (test code = POCGLU) 126 MG/DL 70-110 H HEMOGLOBIN [id number] 14:56:00 Test Item Value Reference Range Interpretation Comments HEMOGLOBIN ABG (test code = HGB/ABG) 8.9 G/DL 11.0-15.0 L [id number] 14:56:00 Test Item Value Reference Range Interpretation Comments HEMATOCRIT (test code = HCT/ABG) 26 % 33.0-45.0 L POC LACTIC [id number] 14:56:00 Test Item Value Reference Range Interpretation Comments POC LACTIC ACID (test code = 1.6 mmol/l 0.9-1.7 N POCLAC) BASIC METABOLIC [id number] 13:38:00 Test Item Value Reference Range Interpretation Comments SODIUM (test code = NA) 147 mEq/L 134-147 N POTASSIUM (test code = 3.6 mEq/L 3.4-5.0 K) CHLORIDE (test code = 109 mEq/L 100-108 H CL) CARBON DIOXIDE (test 28 mEq/l 21-33 N code = CO2) ANION GAP (test code = 14 0-20 N GAP) GLUCOSE (test code = 153 mg/dL 70-110 H GLU) BLOOD UREA NITROGEN 18 mg/dL 7-18 N (test code = BUN) GLOMERULAR FILTRATION 69.4 70-80 L Units of measure = RATE (test code = GFR) ml/mi n/1.73 m2 CREATININE (test code = 0.8 mg/dL 0.6-1.3 N CREAT) CALCIUM (test code = 8.7 mg/dL 8.0-10.5 N CA) COMMENTS: On arrivalHEPATIC FUNCTION [id number] 13:38:00 Test Item Value Reference Range Interpretation Comments TOTAL PROTEIN (test code = PROT) 5.5 g/dL 6.4-8.2 L ALBUMIN (test code = ALB) 3.20 g/dL 3.4-5.0 L BILIRUBIN TOTAL (test code = BILT) 1.00 mg/dL 0.0-1.0 BILIRUBIN DIRECT (test code = 0.40 MG/DL 0.0-0.30 H BILD) BILIRUBIN INDIRECT (test code = 0.60 MG/DL BILIND) SGOT/AST (test code = AST) 44 IUnit/L 15-37 H SGPT/ALT (test code = ALT) 11 IUnit/L 30-65 L ALKALINE PHOSPHATASE TOTAL (test 47 IUnit/L 20-125 N code = ALKP) COMMENTS: On [id number] 13:38:00 Test Item Value Reference Range Interpretation Comments MAGNESIUM (test code = MAG) 2.45 mg/dL 1.80-2.40 H COMMENTS: On arrivalCBC W/AUTO [id number] 13:38:00 Test Item Value Reference Range Interpretation Comments WHITE BLOOD CELL (test code = 7.8 x10 3/uL 4.5-11.0 WBC) RED BLOOD CELL (test code = 2.37 x10 6/uL 3.54-5.02 L RBC) HEMOGLOBIN (test code = HGB) 9.3 g/dL 11.0-15.0 L HEMATOCRIT (test code = HCT) 26.5 % 33.0-45.0 L MEAN CELL VOLUME (test code = 111.8 fL 81.0-99.0 H MCV) MEAN CELL HGB (test code = MCH) 39.2 pg 27.0-33.0 H MEAN CELL HGB CONCETRATION 35.1 g/dL 33.0-37.0 N (test code = MCHC) RED CELL DISTRIBUTION WIDTH CV 15.8 % 11.5-14.5 H (test code = RDW) RED CELL DISTRIBUTION WIDTH SD 61.6 fL 37.0-54.0 H (test code = RDW-SD) PLATELET COUNT (test code = 76 x10 3/uL 150-400 L PLT) MEAN PLATELET VOLUME (test code 10.9 fL 7.0-9.0 H = MPV) NEUTROPHIL % (test code = NT%) 87.6 % 56.0-77.0 H IMMATURE GRANULOCYTE % (test 0.8 % 0.0-2.0 N code = IG%) LYMPHOCYTE % (test code = LY%) 3.1 % 14.0-32.0 L MONOCYTE % (test code = MO%) 8.3 % 4.8-9.0 N EOSINOPHIL % (test code = EO%) 0.1 % 0.3-3.7 L BASOPHIL % (test code = BA%) 0.1 % 0.0-2.0 N NUCLEATED RBC % (test code = 0.0 % 0-0 N NRBC%) NEUTROPHIL # (test code = NT#) 6.83 x10 3/uL 2.0-7.6 N IMMATURE GRANULOCYTE # (test 0.06 x10 3/uL 0.00-0.03 H code = IG#) LYMPHOCYTE # (test code = LY#) 0.24 x10 3/uL 1.0-3.8 L MONOCYTE # (test code = MO#) 0.65 x10 3/uL 0.1-0.8 N EOSINOPHIL # (test code = EO#) 0.01 x10 3/uL 0.0-0.2 N BASOPHIL # (test code = BA#) 0.01 x10 3/uL 0.0-0.2 N NUCLEATED RBC # (test code = 0.00 x10 3/uL 0.0-0.1 N NRBC#) MANUAL DIFF REQUIRED (test code NO = MDIFF) COMMENTS: On arrivalRBC [id number] 13:38:00 Test Item Value Reference Range Interpretation Comments ANISOCYTOSIS (test code = ANISO) 1+ POLYCHROMASIA (test code = POLC) 1+ MACROCYTOSIS (test code = MACR) 1+ COMMENTS: On arrivalPLT [id number] 13:38:00 Test Item Value Reference Range Interpretation Comments PLATELET ESTIMATE (test code = 76-95 THOUSAND ADEQUATE PLTEST) COMMENTS: On arrivalPOC VENOUS BLOOD [id number] 13:30:00 Test Item Value Reference Range Interpretation Comments POC VENOUS BLOOD GAS PH (test 7.334 7.33-7.45 N code = POCPHV) POC VENOUS BLOOD GAS PCO2 (test 57.2 mmHg 43-47 HH code = XTMJNI5Z) POC VENOUS BLOOD GAS PO2 (test 35.1 mmHG 10-50 N code = VVWHN5U) POC TCO2 VENOUS (test code = 32.2 ZMAKUV5L) POC HCO3 VENOUS (test code = 30.5 MMOL/L 22-27 H NKOHTY1R) POC BASE EXCESS VENOUS (test code 4.6 MMOL/L -4.0-4.0 H = POCBEV) POC O2 SATURATION VENOUS (test 61.8 % 60-80 N code = BUDG5SI) VENOUS BLOOD GAS FIO2 (test code 60 % = FIO2V) VBG TIDAL VOLUME (test code = 450 ml TVV) VENOUS BLOOD GAS PEEP (test code 5 cmH2O = PEEPV) VENOUS BLOOD GAS SITE (test code [place] Juanita = SITEV) BASIC METABOLIC [id number] 13:30:00 Test Item Value Reference Range Interpretation Comments SODIUM (test code = NA/ABG) 143 MEQ/L 134-147 N POTASSIUM (test code = K/ABG) 3.7 MEQ/L 3.4-5.0 N CHLORIDE (test code = CL/ABG) 105 MEQ/L 100-108 N CREATININE ABG (test code = 0.8 mg/dL 0.6-1.0 N CREAABG) POC IONIZED CALCIUM (test code = 1.30 MMOL/L 1.12-1.32 N POCCA) POC GLUCOSE (test code = POCGLU) 141 MG/DL 70-110 H HEMOGLOBIN [id number] 13:30:00 Test Item Value Reference Range Interpretation Comments HEMOGLOBIN ABG (test code = HGB/ABG) 8.9 G/DL 11.0-15.0 L [id number] 13:30:00 Test Item Value Reference Range Interpretation Comments HEMATOCRIT (test code = HCT/ABG) 26 % 33.0-45.0 L POC LACTIC [id number] 13:30:00 Test Item Value Reference Range Interpretation Comments POC LACTIC ACID (test code = 1.9 mmol/l 0.9-1.7 H POCLAC) LACTIC [id number] 13:29:00 Test Item Value Reference Range Interpretation Comments LACTIC ACID (test code = LACT) 2.2 mmol/L 0.4-1.9 H PROTHROMBIN [id number] 13:22:00 Test Item Value Reference Range Interpretation Comments PROTHROMBIN TIME 16.7 SECONDS 9.3-12.9 H PATIENT (test code = PTP) INTERNATIONAL NORMAL 1.5 0.8-1.2 H TARGET INR BY RATIO (test code = INDICATIO N Indication INR) INR1. Prophylax is of venous thrombos is 2.0 - 3.0 (orthoped ic surgery), Proph ylaxis of venous throm bosis (other than hig h-risk surgery), Treat ment of Deep Vein Thrombosis/Pulm onary Embolism, Preve ntion of systemic emb olism - Tissue heart va lves, Acute Myocardia l Infarction (to prevent systemic emboli sm), Valvular heart disease, Atrial Fibrillation, Bileaflet mecha nical valve in aortic position.2. Mec hanical prosthetic valv es (high risk), 2. 5 - 3.5 Presence of Lup us Anticoagulant o r Antiphospholipi d Antibodies, Pre vention of systemic emb olism - Acute Myocardia l Infarction (to prevent recurrent infar ct). COMMENTS: On arrivalTHROMBOPLASTIN TIME [id number] 13:22:00 Test Item Value Reference Range Interpretation Comments THROMBOPLASTIN TIME 24.4 Seconds 25.0-39.5 L Therape utic Range: PARTIAL (test code = 50.4 - 88.3 Seconds PTT) Effective 06/28/2018 COMMENTS: On arrivalPOC ARTERIAL BLOOD [id number] 13:02:00 Test Item Value Reference Range Interpretation Comments POC ARTERIAL BLOOD GAS PH (test 7.383 7.35-7.45 N code = POCPHA) POC ARTERIAL BLOOD GAS PCO2 51.0 mmHg 35.0-45 HH (test code = MICLUE2X) POC TCO2 ARTERIAL (test code = 32.0 POCTCO2) POC ARTERIAL BLOOD GAS PO2 (test 72.1 mmHg 80-100.0 L code = [id number]) POC HCO3 ARTERIAL (test code = 30.4 MMOL/L 22.0-26.0 HH [id number]) POC BASE EXCESS (test code = 5.3 MMOL/L -4.0-4.0 H POCBEA) POC O2 SATURATION (test code = 94.0 % 90-100 N POCO2S) FIO2 (test code = FIO2A) 50 % PaO2/FiO2 (test code = [id number]) 144.20 mm/Hg ABG DELIVERY (test code = MAAME) Adult Vent ABG VENT MODE (test code = AC MODEA) ABG VENT RESP RATE (test code = 18 /MIN RRA) ABG TIDAL VOLUME (test code = 500 ml TVA) ABG PEEP (test code = PEEPA) 5 cmH2O ABG TEMPERATURE (test code = 98 F TEMPA) ABG SITE (test code = SITEA) Art Line MARTIN'S TEST (test code = N/A ALLENS) BASIC METABOLIC [id number] 13:02:00 Test Item Value Reference Range Interpretation Comments SODIUM (test code = NA/ABG) 144 MEQ/L 134-147 N POTASSIUM (test code = K/ABG) 3.8 MEQ/L 3.4-5.0 N CHLORIDE (test code = CL/ABG) 105 MEQ/L 100-108 N CREATININE ABG (test code = 0.9 mg/dL 0.6-1.0 N CREAABG) POC IONIZED CALCIUM (test code = 1.29 MMOL/L 1.12-1.32 N POCCA) POC GLUCOSE (test code = POCGLU) 144 MG/DL 70-110 H HEMOGLOBIN [id number] 13:02:00 Test Item Value Reference Range Interpretation Comments HEMOGLOBIN ABG (test code = HGB/ABG) 9.2 G/DL 11.0-15.0 L [id number] 13:02:00 Test Item Value Reference Range Interpretation Comments HEMATOCRIT (test code = HCT/ABG) 27 % 33.0-45.0 L POC LACTIC [id number] 13:02:00 Test Item Value Reference Range Interpretation Comments POC LACTIC ACID (test code = 2.0 mmol/l 0.9-1.7 H POCLAC) [id number] 11:33:00 Test Item Value Reference Range Interpretation Comments ACT-ISTAT (test code 115 SEC 74-137 N Perform ed by certified = ACTI) 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[facility] POC ARTERIAL BLOOD [id number] 11:25:00 Test Item Value Reference Range Interpretation Comments POC ARTERIAL BLOOD GAS PH (test 7.472 7.35-7.45 H code = POCPHA) POC ARTERIAL BLOOD GAS PCO2 (test 35.8 mmHg 35.0-45 N code = [id number]) POC TCO2 ARTERIAL (test code = 27.2 POCTCO2) POC ARTERIAL BLOOD GAS PO2 (test 303.1 mmHg 80-100.0 HH code = GEUZD3I) POC HCO3 ARTERIAL (test code = 26.2 MMOL/L 22.0-26.0 H [id number]) POC BASE EXCESS (test code = 2.5 MMOL/L -4.0-4.0 N POCBEA) POC O2 SATURATION (test code = 99.9 % 90-100 N POCO2S) BASIC METABOLIC [id number] 11:25:00 Test Item Value Reference Range Interpretation Comments SODIUM (test code = NA/ABG) 145 MEQ/L 134-147 N POTASSIUM (test code = K/ABG) 4.5 MEQ/L 3.4-5.0 N CHLORIDE (test code = CL/ABG) 106 MEQ/L 100-108 N CREATININE ABG (test code = 0.8 mg/dL 0.6-1.0 N CREAABG) POC IONIZED CALCIUM (test code = 1.33 MMOL/L 1.12-1.32 H POCCA) POC GLUCOSE (test code = POCGLU) 168 MG/DL 70-110 H HEMOGLOBIN [id number] 11:25:00 Test Item Value Reference Range Interpretation Comments HEMOGLOBIN ABG (test code = HGB/ABG) 9.0 G/DL 11.0-15.0 L [id number] 11:25:00 Test Item Value Reference Range Interpretation Comments HEMATOCRIT (test code = HCT/ABG) 26 % 33.0-45.0 L POC LACTIC [id number] 11:25:00 Test Item Value Reference Range Interpretation Comments POC LACTIC ACID (test code = 2.3 mmol/l 0.9-1.7 H POCLAC) [id number] 11:05:00 Test Item Value Reference Range Interpretation Comments ACT-ISTAT (test code 491 SEC 74-137 H Perform ed by certified = ACTI) 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[facility] POC ARTERIAL BLOOD [id number] 10:54:00 Test Item Value Reference Range Interpretation Comments POC ARTERIAL BLOOD GAS PH (test 7.467 7.35-7.45 H code = POCPHA) POC ARTERIAL BLOOD GAS PCO2 (test 42.3 mmHg 35.0-45 N code = AFAPUF7H) POC TCO2 ARTERIAL (test code = 31.9 POCTCO2) POC ARTERIAL BLOOD GAS PO2 (test 226.6 mmHg 80-100.0 HH code = GYUFW4N) POC HCO3 ARTERIAL (test code = 30.6 MMOL/L 22.0-26.0 HH [id number]) POC BASE EXCESS (test code = 6.2 MMOL/L -4.0-4.0 H POCBEA) POC O2 SATURATION (test code = 99.8 % 90-100 N POCO2S) BASIC METABOLIC [id number] 10:54:00 Test Item Value Reference Range Interpretation Comments SODIUM (test code = NA/ABG) 143 MEQ/L 134-147 N POTASSIUM (test code = K/ABG) 5.2 MEQ/L 3.4-5.0 H CHLORIDE (test code = CL/ABG) 104 MEQ/L 100-108 N CREATININE ABG (test code = 0.9 mg/dL 0.6-1.0 N CREAABG) POC IONIZED CALCIUM (test code = 1.18 MMOL/L 1.12-1.32 N POCCA) POC GLUCOSE (test code = POCGLU) 180 MG/DL 70-110 H HEMOGLOBIN [id number] 10:54:00 Test Item Value Reference Range Interpretation Comments HEMOGLOBIN ABG (test code = HGB/ABG) 8.5 G/DL 11.0-15.0 L [id number] 10:54:00 Test Item Value Reference Range Interpretation Comments HEMATOCRIT (test code = HCT/ABG) 25 % 33.0-45.0 L POC LACTIC [id number] 10:54:00 Test Item Value Reference Range Interpretation Comments POC LACTIC ACID (test code = 1.4 mmol/l 0.9-1.7 N POCLAC) [id number] 10:37:00 Test Item Value Reference Range Interpretation Comments ACT-ISTAT (test code 515 SEC 74-137 H Perform ed by certified = ACTI) 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[facility] POC ARTERIAL BLOOD [id number] 10:23:00 Test Item Value Reference Range Interpretation Comments POC ARTERIAL BLOOD GAS PH (test 7.550 7.35-7.45 HH code = POCPHA) POC ARTERIAL BLOOD GAS PCO2 (test 35.2 mmHg 35.0-45 N code = RLUSHI1L) POC TCO2 ARTERIAL (test code = 31.8 POCTCO2) POC ARTERIAL BLOOD GAS PO2 (test 278.5 mmHg 80-100.0 HH code = PPUIT7X) POC HCO3 ARTERIAL (test code = 30.8 MMOL/L 22.0-26.0 HH [id number]) POC BASE EXCESS (test code = 7.9 MMOL/L -4.0-4.0 H POCBEA) POC O2 SATURATION (test code = 99.9 % 90-100 N POCO2S) BASIC METABOLIC [id number] 10:23:00 Test Item Value Reference Range Interpretation Comments SODIUM (test code = NA/ABG) 143 MEQ/L 134-147 N POTASSIUM (test code = K/ABG) 5.3 MEQ/L 3.4-5.0 H CHLORIDE (test code = CL/ABG) 104 MEQ/L 100-108 N CREATININE ABG (test code = 0.9 mg/dL 0.6-1.0 N CREAABG) POC IONIZED CALCIUM (test code = 1.15 MMOL/L 1.12-1.32 N POCCA) POC GLUCOSE (test code = POCGLU) 197 MG/DL 70-110 H HEMOGLOBIN [id number] 10:23:00 Test Item Value Reference Range Interpretation Comments HEMOGLOBIN ABG (test code = HGB/ABG) 9.1 G/DL 11.0-15.0 L [id number] 10:23:00 Test Item Value Reference Range Interpretation Comments HEMATOCRIT (test code = HCT/ABG) 27 % 33.0-45.0 L POC LACTIC [id number] 10:23:00 Test Item Value Reference Range Interpretation Comments POC LACTIC ACID (test code = 1.1 mmol/l 0.9-1.7 N POCLAC) [id number] 09:56:00 Test Item Value Reference Range Interpretation Comments ACT-ISTAT (test code 642 SEC 74-137 H Perform ed by certified = ACTI) 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[facility] POC ARTERIAL BLOOD [id number] 09:52:00 Test Item Value Reference Range Interpretation Comments POC ARTERIAL BLOOD GAS PH (test 7.532 7.35-7.45 HH code = POCPHA) POC ARTERIAL BLOOD GAS PCO2 (test 36.8 mmHg 35.0-45 N code = XKWULN6M) POC TCO2 ARTERIAL (test code = 32.0 POCTCO2) POC ARTERIAL BLOOD GAS PO2 (test 427.8 mmHg 80-100.0 HH code = UVANZ3S) POC HCO3 ARTERIAL (test code = 30.8 MMOL/L 22.0-26.0 HH [id number]) POC BASE EXCESS (test code = 7.7 MMOL/L -4.0-4.0 H POCBEA) POC O2 SATURATION (test code = 100.0 % 90-100 N POCO2S) BASIC METABOLIC [id number] 09:52:00 Test Item Value Reference Range Interpretation Comments SODIUM (test code = NA/ABG) 143 MEQ/L 134-147 N POTASSIUM (test code = K/ABG) 4.5 MEQ/L 3.4-5.0 N CHLORIDE (test code = CL/ABG) 103 MEQ/L 100-108 N CREATININE ABG (test code = 1.0 mg/dL 0.6-1.0 N CREAABG) POC IONIZED CALCIUM (test code = 1.17 MMOL/L 1.12-1.32 N POCCA) POC GLUCOSE (test code = POCGLU) 193 MG/DL 70-110 H HEMOGLOBIN [id number] 09:52:00 Test Item Value Reference Range Interpretation Comments HEMOGLOBIN ABG (test code = HGB/ABG) 9.2 G/DL 11.0-15.0 L [id number] 09:52:00 Test Item Value Reference Range Interpretation Comments HEMATOCRIT (test code = HCT/ABG) 27 % 33.0-45.0 L POC LACTIC [id number] 09:52:00 Test Item Value Reference Range Interpretation Comments POC LACTIC ACID (test code = 1.3 mmol/l 0.9-1.7 N POCLAC) [id number] 09:37:00 Test Item Value Reference Range Interpretation Comments ACT-ISTAT (test code 746 SEC 74-137 H Perform ed by certified = ACTI) 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[facility] POC ARTERIAL BLOOD [id number] 09:18:00 Test Item Value Reference Range Interpretation Comments POC ARTERIAL BLOOD GAS PH (test 7.473 7.35-7.45 H code = POCPHA) POC ARTERIAL BLOOD GAS PCO2 (test 41.7 mmHg 35.0-45 N code = LKVKFV4X) POC TCO2 ARTERIAL (test code = 31.9 POCTCO2) POC ARTERIAL BLOOD GAS PO2 (test 447.6 mmHg 80-100.0 HH code = GHGKK0S) POC HCO3 ARTERIAL (test code = 30.6 MMOL/L 22.0-26.0 HH WSUKKO4A) POC BASE EXCESS (test code = 6.4 MMOL/L -4.0-4.0 H POCBEA) POC O2 SATURATION (test code = 100.0 % 90-100 N POCO2S) BASIC METABOLIC [id number] 09:18:00 Test Item Value Reference Range Interpretation Comments SODIUM (test code = NA/ABG) 143 MEQ/L 134-147 N POTASSIUM (test code = K/ABG) 4.9 MEQ/L 3.4-5.0 N CHLORIDE (test code = CL/ABG) 102 MEQ/L 100-108 N CREATININE ABG (test code = 0.9 mg/dL 0.6-1.0 N CREAABG) POC IONIZED CALCIUM (test code = 1.13 MMOL/L 1.12-1.32 N POCCA) POC GLUCOSE (test code = POCGLU) 208 MG/DL 70-110 H HEMOGLOBIN [id number] 09:18:00 Test Item Value Reference Range Interpretation Comments HEMOGLOBIN ABG (test code = HGB/ABG) 9.2 G/DL 11.0-15.0 L [id number] 09:18:00 Test Item Value Reference Range Interpretation Comments HEMATOCRIT (test code = HCT/ABG) 27 % 33.0-45.0 L POC LACTIC [id number] 09:18:00 Test Item Value Reference Range Interpretation Comments POC LACTIC ACID (test code = 1.2 mmol/l 0.9-1.7 N POCLAC) [id number] 08:57:00 Test Item Value Reference Range Interpretation Comments ACT-ISTAT (test code 740 SEC 74-137 H Perform ed by certified = ACTI) 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[facility] POC ARTERIAL BLOOD [id number] 08:47:00 Test Item Value Reference Range Interpretation Comments POC ARTERIAL BLOOD GAS PH (test 7.421 7.35-7.45 N code = POCPHA) POC ARTERIAL BLOOD GAS PCO2 (test 42.1 mmHg 35.0-45 N code = ZDMBUU7W) POC TCO2 ARTERIAL (test code = 28.7 POCTCO2) POC ARTERIAL BLOOD GAS PO2 (test 349.7 mmHg 80-100.0 HH code = LMVWU8G) POC HCO3 ARTERIAL (test code = 27.4 MMOL/L 22.0-26.0 H [id number]) POC BASE EXCESS (test code = 2.6 MMOL/L -4.0-4.0 N POCBEA) POC O2 SATURATION (test code = 99.9 % 90-100 N POCO2S) BASIC METABOLIC [id number] 08:47:00 Test Item Value Reference Range Interpretation Comments SODIUM (test code = NA/ABG) 142 MEQ/L 134-147 N POTASSIUM (test code = K/ABG) 4.2 MEQ/L 3.4-5.0 N CHLORIDE (test code = CL/ABG) 101 MEQ/L 100-108 N CREATININE ABG (test code = 0.9 mg/dL 0.6-1.0 N CREAABG) POC IONIZED CALCIUM (test code = 1.16 MMOL/L 1.12-1.32 N POCCA) POC GLUCOSE (test code = POCGLU) 244 MG/DL 70-110 H HEMOGLOBIN [id number] 08:47:00 Test Item Value Reference Range Interpretation Comments HEMOGLOBIN ABG (test code = 10.3 G/DL 11.0-15.0 L HGB/ABG) [id number] 08:47:00 Test Item Value Reference Range Interpretation Comments HEMATOCRIT (test code = HCT/ABG) 30 % 33.0-45.0 L POC LACTIC [id number] 08:47:00 Test Item Value Reference Range Interpretation Comments POC LACTIC ACID (test code = 1.1 mmol/l 0.9-1.7 N POCLAC) CBC W/AUTO [id number] 08:23:00 Test Item Value Reference Range Interpretation Comments WHITE BLOOD CELL (test code = 4.9 x10 3/uL 4.5-11.0 N WBC) RED BLOOD CELL (test code = 3.11 x10 6/uL 3.54-5.02 L RBC) HEMOGLOBIN (test code = HGB) 11.0 g/dL 11.0-15.0 N HEMATOCRIT (test code = HCT) 34.5 % 33.0-45.0 N MEAN CELL VOLUME (test code = 110.9 fL 81.0-99.0 H MCV) MEAN CELL HGB (test code = MCH) 35.4 pg 27.0-33.0 H MEAN CELL HGB CONCETRATION 31.9 g/dL 33.0-37.0 L (test code = MCHC) RED CELL DISTRIBUTION WIDTH CV 15.9 % 11.5-14.5 H (test code = RDW) RED CELL DISTRIBUTION WIDTH SD 65.8 fL 37.0-54.0 H (test code = RDW-SD) PLATELET COUNT (test code = 118 x10 3/uL 150-400 L PLT) MEAN PLATELET VOLUME (test code 12.0 fL 7.0-9.0 H = MPV) NEUTROPHIL % (test code = NT%) 82.5 % 56.0-77.0 H IMMATURE GRANULOCYTE % (test 0.4 % 0.0-2.0 N code = IG%) LYMPHOCYTE % (test code = LY%) 5.7 % 14.0-32.0 L MONOCYTE % (test code = MO%) 10.4 % 4.8-9.0 H EOSINOPHIL % (test code = EO%) 0.8 % 0.3-3.7 N BASOPHIL % (test code = BA%) 0.2 % 0.0-2.0 N NUCLEATED RBC % (test code = 0.0 % 0-0 N NRBC%) NEUTROPHIL # (test code = NT#) 4.06 x10 3/uL 2.0-7.6 N IMMATURE GRANULOCYTE # (test 0.02 x10 3/uL 0.00-0.03 N code = IG#) LYMPHOCYTE # (test code = LY#) 0.28 x10 3/uL 1.0-3.8 L MONOCYTE # (test code = MO#) 0.51 x10 3/uL 0.1-0.8 N EOSINOPHIL # (test code = EO#) 0.04 x10 3/uL 0.0-0.2 N BASOPHIL # (test code = BA#) 0.01 x10 3/uL 0.0-0.2 N NUCLEATED RBC # (test code = 0.00 x10 3/uL 0.0-0.1 N NRBC#) MANUAL DIFF REQUIRED (test code NO = MDIFF) [id number] 07:46:00 Test Item Value Reference Range Interpretation Comments ACT-ISTAT (test code 138 SEC 74-137 H Perform ed by certified = ACTI) 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[facility] POC ARTERIAL BLOOD [id number] 07:37:00 Test Item Value Reference Range Interpretation Comments POC ARTERIAL BLOOD GAS PH (test 7.439 7.35-7.45 N code = POCPHA) POC ARTERIAL BLOOD GAS PCO2 (test 38.6 mmHg 35.0-45 N code = EQVONL9G) POC TCO2 ARTERIAL (test code = 27.3 POCTCO2) POC ARTERIAL BLOOD GAS PO2 (test 482.6 mmHg 80-100.0 HH code = WVTIE4H) POC HCO3 ARTERIAL (test code = 26.2 MMOL/L 22.0-26.0 H SGBCGX9B) POC BASE EXCESS (test code = 1.9 MMOL/L -4.0-4.0 N POCBEA) POC O2 SATURATION (test code = 100.0 % 90-100 N POCO2S) BASIC METABOLIC [id number] 07:37:00 Test Item Value Reference Range Interpretation Comments SODIUM (test code = NA/ABG) 143 MEQ/L 134-147 N POTASSIUM (test code = K/ABG) 4.3 MEQ/L 3.4-5.0 N CHLORIDE (test code = CL/ABG) 104 MEQ/L 100-108 N CREATININE ABG (test code = 1.0 mg/dL 0.6-1.0 N CREAABG) POC IONIZED CALCIUM (test code = 1.13 MMOL/L 1.12-1.32 N POCCA) POC GLUCOSE (test code = POCGLU) 257 MG/DL 70-110 H HEMOGLOBIN [id number] 07:37:00 Test Item Value Reference Range Interpretation Comments HEMOGLOBIN ABG (test code = HGB/ABG) 9.5 G/DL 11.0-15.0 L [id number] 07:37:00 Test Item Value Reference Range Interpretation Comments HEMATOCRIT (test code = HCT/ABG) 28 % 33.0-45.0 L POC LACTIC [id number] 07:37:00 Test Item Value Reference Range Interpretation Comments POC LACTIC ACID (test code = 2.0 mmol/l 0.9-1.7 H POCLAC) COMPREHENSIVE METABOLIC [id number] 07:20:00 Test Item Value Reference Range Interpretation Comments SODIUM (test code = NA) 143 mEq/L 134-147 N POTASSIUM (test code = 4.8 mEq/L 3.4-5.0 N K) CHLORIDE (test code = 105 mEq/L 100-108 N CL) CARBON DIOXIDE (test 32 mEq/l 21-33 N code = CO2) ANION GAP (test code = 11 0-20 N GAP) GLUCOSE (test code = 136 mg/dL 70-110 H GLU) BLOOD UREA NITROGEN 16 mg/dL 7-18 (test code = BUN) GLOMERULAR FILTRATION 60.6 70-80 L Units of measure = RATE (test code = GFR) ml/mi n/1.73 m2 CREATININE (test code = 0.9 mg/dL 0.6-1.3 N CREAT) TOTAL PROTEIN (test 7.4 g/dL 6.4-8.2 N code = PROT) ALBUMIN (test code = 3.80 g/dL 3.4-5.0 N ALB) CALCIUM (test code = 9.7 mg/dL 8.0-10.5 N CA) BILIRUBIN TOTAL (test 0.50 mg/dL 0.0-1.0 N code = BILT) SGOT/AST (test code = 16 IUnit/L 15-37 N AST) SGPT/ALT (test code = 11 IUnit/L 30-65 L ALT) ALKALINE PHOSPHATASE 71 IUnit/L 20-125 N TOTAL (test code = ALKP) THROMBOPLASTIN TIME [id number] 05:41:00 Test Item Value Reference Range Interpretation Comments THROMBOPLASTIN TIME 31.1 Seconds 25.0-39.5 N Therape utic Range: PARTIAL (test code = 50.4 - 88.3 Seconds PTT) Effective 06/28/2018 PROTHROMBIN [id number] 05:28:00 Test Item Value Reference Range Interpretation Comments PROTHROMBIN TIME 13.5 SECONDS 9.3-12.9 H PATIENT (test code = PTP) INTERNATIONAL NORMAL 1.2 0.8-1.2 N TARGET INR BY RATIO (test code = INDICATIO N Indication INR) INR1. Prophylax is of venous thrombos is 2.0 - 3.0 (orthoped ic surgery), Proph ylaxis of venous throm bosis (other than hig h-risk surgery), Treat ment of Deep Vein Thrombosis/Pulm onary Embolism, Preve ntion of systemic emb olism - Tissue heart va lves, Acute Myocardia l Infarction (to prevent systemic emboli sm), Valvular heart disease, Atrial Fibrillation, Bileaflet mecha nical valve in aortic position.2. Mec hanical prosthetic valv es (high risk), 2. 5 - 3.5 Presence of Lup us Anticoagulant o r Antiphospholipi d Antibodies, Pre vention of systemic emb olism - Acute Myocardia l Infarction (to prevent recurrent infar ct). - XR CHEST 1 [id number] 00:00:00 [facility] 1945 Sex: F FAX:Jeffry Pennington MD [phone] [place]: St: ADM FAX: Abdiaziz Christiansen MD [phone] FAX: René Blancas [phone] FAX: Colt Aguillon MD [phone] Name: SAÚL GILES [facility] : 1945 Age/S: 76/F [address] [place] [address] Unit #: [id number] Loc: G.[address] [place] [address] Phys: René Villareal MD Acct: [id number] Dis Date: Status: ADM IN PHONE #: [phone] Exam Date: 12/19/2021 1336 FAX #: [phone] Reason: SURGICAL COUNT EXAMS: CPT CODE: [id number] XR CHEST 1 V 67124 PROCEDURE INFORMATION: Exam: XR Chest Exam date and time: 12/19/2021 12:09 PM Age: 76 years old Clinical indication: Screening exam; Other screening; Additional info: Surgical count TECHNIQUE: Imaging protocol: Radiologic exam of the chest. Views: 1 view. COMPARISON: CT CHEST W/O CONTRAST 12/17/2021 5:33 PM FINDINGS: Tubes, catheters and devices: The endotracheal tube tip terminates approximately 6 cm above the chong. The right IJ central venous catheter tip projects at the level of the mid SVC. Stable left multi lead pacemaker. The right IJ Fairfield-Juanita catheter tip projects at the level of the right main pulm onary artery. Lungs: Scattered bilateral central and bibasilar pulmonary opacities with superimposedareas of platelike atelectasis in the right lung base, right middle lobe and left mid lung. Pleural spaces: No visible pneumothorax line in the presence of bilateral chest tubes. 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 Severe cervical and mildthoracic spondylosis. No destructive bone lesion. Soft tissues: No retained radiopaque foreign body r esembling a needle is identified in the chest or visualized upper abdomen considering history. IMPRESSION: 1. No retained metallic structure resembling a surgical needle in the chest or visualized upper abdomen. 2. Line and tube positions as described. 3. Satisfactory postoperative appearance of the me diastinum with no visible procedural complication. 4. Bilateral platelike atelectasis and central/bibasilar pulmonary opacities, probably representing atelectasis and or secretions. Findings were conveyed to the Surgical team at 12:30 p.m. PAGE 1 Signed Report (CONTINUED) FAX: Jeffry Pennington MD [phone] [place]: St: ADM FAX: Abdiaziz Christiansen MD [phone] FAX: René Blancas [phone] FAX: Colt Aguiloln MD [phone] Name: SAÚL GILES [facility] : 1945 Age/S: 76/F [address] Unit #: [id number] Loc: [address] [place] [address] Phys: René Villareal MD Acct: [id number] Dis Date: Status: ADM IN PHONE #: [phone] Exam Date: 12/19/2021 [facility] FAX #: [phone] Reason: SURGICAL COUNT EXAMS: CPT CODE: [id number] XR CHEST 1 V 56205 (Continued) at 1402 Reported and signed by: Jonathan Calles M.D. CC: Jeffry Hsu MD; Abdiaziz Fuchs MD; René Villareal MD; Colt Vail MDTechnologist: RT Osman(Marla) Trnscrd Date/Time/By: 12/19/2021 (1401) : By: [email or web address] Orig Print D/T: S: 12/19/2021 (1083) PAGE 2 Signed Report- XR CHEST 1 [id number] 00:00:[address] [facility] [facility] : 1945 Sex: F FAX:Jeffry Pennington MD [phone] [place]: St: [facility] [place] FAX: Abdiaziz Christiansen MD [phone] FAX: René Blancas [phone] FAX: Colt Aguillon MD [phone] Name: CHANCECISAÚL [facility] : 1945 Age/S: 76/F [address] [place] [address] Unit #: [id number] Loc: [address] [place] [address] Phys: René Villareal MD Acct: [id number] Dis Date: Status: ADM IN PHONE #: [phone] Exam Date: 12/19/2021 1315 FAX #: [phone] Reason: Cardiac Surgery Post Op EXAMS: CPT CODE: [id number] XR CHEST 1 V [id number] INFORMATION: Exam: XR Chest Exam date and time: 12/19/2021 1:17 PM Age: 76 years old Clinical indication: Other: Cardiac surgery post op TECHNIQUE: Imaging protocol: Radiologic exam of the chest. Views: 1 view. COMPARISON: CR XR CHEST 1V 12/19/2021 12:09 PM FINDINGS: Tubes, catheters and devices: AICD device is present, and its leads are in appropriate position. The endotracheal tube is terminating at the level of the sternoclavicular joints. There is a Fairfield-Juanita catheter in place. Lungs: There are patchy opacities throughout the lungs, which could represent atelectasis. Increased interstitial markings, which could represent pulmonary edema. Pleural spaces: Unremarkable. No pleural effusion. No pneumothorax. Heart/Mediastinum: The patient is status post valve replacement. There is cardiomegaly. Bones/joints: Status post median sternotomy. IMPRESSION: 1. There are patchy opacities throughout the lungs, which could represent atelectasis. 2. Increased interstitial markings, which could represent pulmonary edema. at 1516 Reported and signed by: Syeda Leblanc M.D. 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[facility] GLUCOSE [id number] 16:49:00 Test Item Value Reference Range Interpretation Comments GLUCOSE BEDSIDE (test 226 MG/DL 70-110 H Perfor med by certified code = GLUBED) 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[facility] GLUCOSE [id number] 13:03:00 Test Item Value Reference Range Interpretation Comments GLUCOSE BEDSIDE (test 148 MG/DL 70-110 H Perfor med by certified code = GLUBED) 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[facility] GLUCOSE [id number] 11:18:00 Test Item Value Reference Range Interpretation Comments GLUCOSE BEDSIDE (test 153 MG/DL 70-110 H Perfor med by certified code = GLUBED) 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[facility] B-TYPE NATRIURETIC [id number] 05:59:00 Test Item Value Reference Range Interpretation Comments B-TYPE NATRIURETIC PEPTIDE (test 90.0 PG/ML 0-100 N code = BNP) [id number] 05:39:00 Test Item Value Reference Range Interpretation Comments HGBA1C% (test code = HGBA1C%) 6.2 %A1C 4.8-6.0 H CBC W/AUTO [id number] 05:26:00 Test Item Value Reference Range Interpretation Comments WHITE BLOOD CELL (test code = 4.0 x10 3/uL 4.5-11.0 L WBC) RED BLOOD CELL (test code = 3.15 x10 6/uL 3.54-5.02 L RBC) HEMOGLOBIN (test code = HGB) 11.0 g/dL 11.0-15.0 N HEMATOCRIT (test code = HCT) 33.9 % 33.0-45.0 N MEAN CELL VOLUME (test code = 107.6 fL 81.0-99.0 H MCV) MEAN CELL HGB (test code = MCH) 34.9 pg 27.0-33.0 H MEAN CELL HGB CONCETRATION 32.4 g/dL 33.0-37.0 L (test code = MCHC) RED CELL DISTRIBUTION WIDTH CV 15.9 % 11.5-14.5 H (test code = RDW) RED CELL DISTRIBUTION WIDTH SD 62.6 fL 37.0-54.0 H (test code = RDW-SD) PLATELET COUNT (test code = 116 x10 3/uL 150-400 L PLT) MEAN PLATELET VOLUME (test code 11.5 fL 7.0-9.0 H = MPV) NEUTROPHIL % (test code = NT%) 80.1 % 56.0-77.0 H IMMATURE GRANULOCYTE % (test 0.3 % 0.0-2.0 N code = IG%) LYMPHOCYTE % (test code = LY%) 8.4 % 14.0-32.0 L MONOCYTE % (test code = MO%) 9.4 % 4.8-9.0 H EOSINOPHIL % (test code = EO%) 1.3 % 0.3-3.7 N BASOPHIL % (test code = BA%) 0.5 % 0.0-2.0 N NUCLEATED RBC % (test code = 0.0 % 0-0 N NRBC%) NEUTROPHIL # (test code = NT#) 3.17 x10 3/uL 2.0-7.6 N IMMATURE GRANULOCYTE # (test 0.01 x10 3/uL 0.00-0.03 N code = IG#) LYMPHOCYTE # (test code = LY#) 0.33 x10 3/uL 1.0-3.8 L MONOCYTE # (test code = MO#) 0.37 x10 3/uL 0.1-0.8 N EOSINOPHIL # (test code = EO#) 0.05 x10 3/uL 0.0-0.2 N BASOPHIL # (test code = BA#) 0.02 x10 3/uL 0.0-0.2 N NUCLEATED RBC # (test code = 0.00 x10 3/uL 0.0-0.1 N NRBC#) MANUAL DIFF REQUIRED (test code NO = MDIFF) PROTHROMBIN [id number] 04:51:00 Test Item Value Reference Range Interpretation Comments PROTHROMBIN TIME 13.5 SECONDS 9.3-12.9 H PATIENT (test code = PTP) INTERNATIONAL NORMAL 1.2 0.8-1.2 N TARGET INR BY RATIO (test code = INDICATIO N Indication INR) INR1. Prophylax is of venous thrombos is 2.0 - 3.0 (orthoped ic surgery), Proph ylaxis of venous throm bosis (other than hig h-risk surgery), Treat ment of Deep Vein Thrombosis/Pulm onary Embolism, Preve ntion of systemic emb olism - Tissue heart va lves, Acute Myocardia l Infarction (to prevent systemic emboli sm), Valvular heart disease, Atrial Fibrillation, Bileaflet mecha nical valve in aortic position.2. Mec hanical prosthetic valv es (high risk), 2. 5 - 3.5 Presence of Lup us Anticoagulant o r Antiphospholipi d Antibodies, Pre vention of systemic emb olism - Acute Myocardia l Infarction (to prevent recurrent infar ct). THROMBOPLASTIN TIME [id number] 04:51:00 Test Item Value Reference Range Interpretation Comments THROMBOPLASTIN TIME 31.0 Seconds 25.0-39.5 N Therape utic Range: PARTIAL (test code = 50.4 - 88.3 Seconds PTT) Effective 06/28/2018 COMPREHENSIVE METABOLIC [id number] 04:47:00 Test Item Value Reference Range Interpretation Comments SODIUM (test code = NA) 141 mEq/L 134-147 N POTASSIUM (test code = 4.3 mEq/L 3.4-5.0 N K) CHLORIDE (test code = 105 mEq/L 100-108 N CL) CARBON DIOXIDE (test 30 mEq/l 21-33 N code = CO2) ANION GAP (test code = 10 0-20 N GAP) GLUCOSE (test code = 147 mg/dL 70-110 H GLU) BLOOD UREA NITROGEN 12 mg/dL 7-18 N (test code = BUN) GLOMERULAR FILTRATION 69.4 70-80 L Units of measure = RATE (test code = GFR) ml/mi n/1.73 m2 CREATININE (test code = 0.8 mg/dL 0.6-1.3 N CREAT) TOTAL PROTEIN (test 7.2 g/dL 6.4-8.2 N code = PROT) ALBUMIN (test code = 3.70 g/dL 3.4-5.0 N ALB) CALCIUM (test code = 9.6 mg/dL 8.0-10.5 N CA) BILIRUBIN TOTAL (test 0.60 mg/dL 0.0-1.0 N code = BILT) SGOT/AST (test code = 17 IUnit/L 15-37 N AST) SGPT/ALT (test code = 11 IUnit/L 30-65 L ALT) ALKALINE PHOSPHATASE 72 IUnit/L 20-125 N TOTAL (test code = ALKP) LIPID PROFILE (CORONARY RISK)2021-12-18 04:47:00 Test Item Value Reference Range Interpretation Comments TRIGLYCERIDES (test 67 mg/dL 40-150 N code = TRIG) CHOLESTEROL (test 108 mg/dL <200 code = CHOL) CHOLESTEROL/HDL 3.25 RATIO 3.27-4.44 L RISK ASSOCIA ANA PAULA WITH RATIO (test code = CHOL/HDL RATIOS: RISK CHOLHDL) MALE FEMALE1/2 AVERAGE 3.43 3.27AVERAG E 4.97 4.442X AVERAGE 9.55 7.053X AVERAGE 23.39 11.04 NOTE THAT THE REFERENCE VALUE IS RELATEDTO RISK LEVELS RECOMMENDED BY THE NATL.HEART, SENTHIL G, AND BLOOD INST. HDL CHOLESTEROL 33.2 mg/dL 39-96 L (test code = HDL) LIPOPROTEIN LDL 66.3 mg/dL 0-100 N <100 OPTIMAL 100-129 (test code = LDL) NEAR OPTIM AL/ABOVE [id number] HIGH>ZK=617 SOUMYA Y HIGH*Guidelines provided by the National Choles terol EducationProgra Adult Treatment Panel III URINALYSIS [id number] 03:32:00 Test Item Value Reference Range Interpretation Comments UA COLOR (test code = COLU) YELLOW YEL/STRAW UA APPEARANCE (test code = SL CLOUDY CLEAR APPU) UA GLUCOSE DIPSTICK (test code NEGATIVE NEGATIVE = DGLUU) UA BILIRUBIN DIPSTICK (test NEGATIVE NEGATIVE code = BILU) UA KETONE DIPSTICK (test code = NEGATIVE NEGATIVE KETU) UA SPECIFIC GRAVITY (test code 1.032 1.005-1.030 H = SGU) UA BLOOD DIPSTICK (test code = NEGATIVE NEGATIVE LALY) UA PH DIPSTICK (test code = 5.0 5.0-7.0 N CLEMENTINA) UA PROTEIN DIPSTICK (test code NEGATIVE NEGATIVE = PROU) UA UROBILINIOGEN DIPSTICK (test 0.2 mg/dL 0.2-1.0 code = URO) UA NITRITE DIPSTICK (test code NEGATIVE NEGATIVE = SAMARIA) UA LEUKOCYTE ESTERASE DIPSTICK 3+ NEGATIVE A (test code = LEUU) UA RBC (test code = RBCU) 11-20 RBC/HPF 0-3 UA WBC NO REFLEX (test code = 21-50 WBC/HPF 0-3 A WBCUCL) UA BACTERIA (test code = BACU) 1+ /HPF NONE SEEN A UA SQUAMOUS CELLS (test code = 11-25 /HPF NONE SEEN A SQU) UA MUCUS (test code = MUCU) TRACE /LPF NONE SEEN COVID 19 Asymptomatic IH [id number] 20:44:00 Test Item Value Reference Range Interpretation Comments COVID 19 Asymptomatic Negative Negative A nega tive result is IH AG (test code = presumpti ve and should COVNONPUIAG) be confirmedwit h an FDA authorized mole cular assay, if neces onur forpatient andrez gement.A positive result does not rule out co-inf ections withother patho gens.This test detects [place] th viable (live) and non-viable,SARS -CoV, and SARS-CoV-2. Ny t performance dep ends on theamount of vi carleen (antigen) in th e sample.This ny t has not been FDA cleare d or approved; the t est hasbeen authori zed by FDA under an Em ergency Use Authorizati on(EUA) for use by labo ratories certified under the CLIA thatmeet the requirements to perform moderate, high or waivedcomplexit y tests. 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[facility] [id number] 11:10:00 Test Item Value Reference Range Interpretation Comments ACT-ISTAT (test code 265 SEC 74-137 H Perform ed by certified = ACTI) 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 1945 Sex: F Name: SAÚL GILES [facility] : 1945 Age/S: 76 / F [address] [place] [address] Unit #: [id number] Loc: [place] [address] Phys: Kena Macedo DIGITAL ASSOCIATE MEDIA DIRECTOR Acct: [id number] Dis Date: Status: ADM IN PHONE #: [phone] Exam Date: 12/17/2021 1734 FAX #: [phone] Reason: Cardiac Surgery Pre Op Report Has Been Amended EXAMS: CPT CODE: [id number] CT CHEST W/O CONTRAST 71061 Addendum - 12/17/2021 SIGNED 12/17/2021 ADDENDUM: [id number] CT/CTCHESTWO There is a 4 mm noncalcified right middle lobe nodule 65 of series 2. For patients at low risk (minimal or absent history of smoking and of other known risk factors), no routine follow-up is indicated. For patients at high risk (history of smoking or of other known risk factors), consider optional CT Chest at 12 months. (Reference: Shefali) References: Shefali Holly, et al. Guidelines for Management of Incidental Pulmonary Nodules Detected on CT Images: From the Fleischner Society 2017. Radiology. 2017;284(1):228-243. at 1849 Reported and signed by: Jose Rankin D.O. Report PROCEDURE INFORMATION: Exam: CT Chest Without Contrast; Diagnostic Exam date and time: 12/17/2021 5:33 PM Age: 76 years old Clinical indication: Other: Cardiac surgery pre op TECHNIQUE: Imaging protocol: Diagnostic computed tomography of the chest without contrast. Radiation optimization: All CT scans at this facility use at least one of these dose optimization techniques: automated exposure control; mA and/or kV adjustment per patient size (includes targeted exams where dose is matched to clinical indication); or iterative reconstruction. COMPARISON: DX XR CHEST 2 V 12/12/2021 1:33 PM FINDINGS: Tubes, catheters and devices: There is a 2 lead cardiac pacemaker with control in the left chest. The leads terminate in the regions of the right cardiac ventricle and coronary sinus. There is a severe burden of three-vessel coronary artery atherosclerotic vascular calcification. There is cardiomegaly. There is no pericardial effusion. PAGE 1 Signed Report (CONTINUED) Name: SAÚL GILES [facility] : 1945 Age/S: 76 / F [address] [place] [address] Blvd Unit #: [id number] Loc: [place] [address] Phys: Kena Arboleda DIGITAL ASSOCIATE MEDIA DIRECTOR Acct: [id number] Dis Date: Status: ADM IN PHONE #: [phone] ExamDate: 12/17/2021 1734 FAX #: [phone] Reason: Cardiac Surgery Pre Op Report Has Been Amended EXAMS: CPT CODE: [id number] CT CHEST W/O CONTRAST 05235 (Continued) Lungs: There is atelectasis within the lungs. There is a 4 mm noncalcified right middle lobe nodule 65 of series 2. There is mild interstitial pulmonary edema. There is pulmonary atelectasis but no evidence of pneumonia. Pleural spaces: Unremarkable. No pneumothorax. No pleural effusion. Heart: See "Tubes, catheters and devices" finding. Lymph nodes: Unremarkable. No enlarged lymph nodes. Vasculature: There are mild calcifications of the aorta. There is no aortic aneurysm or acute process. Bones/joints: There are diffuse enthesopathic changes of the spine consistent with benign diffuse idiopathic skeletal hyperostosis (DISH). There is no acute osseous fracture or dislocation. Soft tissues: Unremarkable. IMPRESSION: 1. There addis 2 lead cardiac pacemaker with control in the left chest. The leads terminate in the regions of theright cardiac ventricle and coronary sinus. There is a severe burden of three-vessel coronary arteryatherosclerotic vascular calcification. There is cardiomegaly. There is no pericardial effusion. 2. There is mild interstitial pulmonary edema. There is pulmonary atelectasis but no evidence of pneumonia. at 1848 Reported and signed by: Jose Rankin D.O. CC: Jeffry Hsu MD; Abdiaziz Fuchs MD; Kena Macedo NP; Colt Vail MD Technologist:David Sanders, RT(R)(CT) CTDI: DLP: Trnscb Date/Time: 12/17/2021 (1847) [email or web address] Orig Print D/T: S: 12/17/2021 (1848) PAGE 2 Signed Report- DUP EXTRACRANIAL [id number] 00:00:[address] : 1945 Sex: F Name: SAÚL GILES [facility] : 1945 Age/S: 76 / F [address] [place] [address] Unit #: [id number] Loc: [place] [address] Phys: Kena Macedo NP Acct: [id number] Dis Date: Status: ADM IN PHONE #: [phone] Exam Date: 12/17/20211846 FAX #: [phone] Reason: Cardiac Surgery Pre OpEXAMS: CPT CODE: [id number] DUP EXTRACRANIAL RAJAN 35303 PROCEDURE INFORMATION: Exam: US Duplex Bilateral Extracranial Arteries, Carotid Arteries Exam date and time: 12/17/2021 6:02 PM Age: 76 years old Clinical indication: Screening exam; Additional info: Cardiac surgery pre op TECHNIQUE: Imaging protocol: Real-time Duplex ultrasound scan of the bilateral carotid and vertebral arteries combining jimenez scale, color Doppler and spectral waveform analysis. Bilateral exam. Exam focused on the carotid arteries. COMPARISON: CT CHEST W/O CONTRAST 12/17/2021 5:33 PM FINDINGS: Right common carotid artery: No occlusion or stenosis. Waveforms are normal. Right internal carotid artery: No occlusion or stenosis. Waveforms are normal. Right ICA/CCA ratio: Within normal limits. Right external carotid artery: No stenosis in the origin. Right vertebral artery: Antegrade flow. Left common carotid artery: No occlusionor stenosis. Waveforms are normal. Left internal carotid artery: No occlusion or stenosis. Waveformsare normal. Left ICA/CCA ratio: Within normal limits. Left external carotid artery: No stenosis in the origin. Left vertebral artery: Antegrade flow. IMPRESSION: No flow-limiting proximal internal carotid arterial stenosis. REFERENCES: SRU CRITERIA. The degree of internal carotid artery stenosis is based on criteria defined by the Society of Radiologists in Ultrasound (SRU). Normal is no stenosis. Mild is less than 50% stenosis. Moderate is 50-69% stenosis. Severe is greater than 69% stenosis to near occlusion. Near occlusion is a markedly narrowed lumen. Total occlusion is no detectable patent lumen. at 1902 Reported and signed by: Margarito Delgado M.D. PAGE 1 Signed Report (CONTINUED) Name: SAÚL GILES [facility] : 1945 Age/S: 76 / F [address] [place] [address] Unit #: [id number] Loc: [place] [address] Phys: Kena Macedo DIGITAL ASSOCIATE MEDIA DIRECTOR Acct: [id number] Dis Date: Status: ADM IN PHONE #: [phone] Exam Date: 12/17 1847 FAX #: [phone] Reason: Cardiac Surgery Pre Op EXAMS: CPT CODE: [id number] DUP EXTRACRANIAL RAJAN 64461 (Continued) CC: Jeffry Hsu MD; Abdiaziz Fuchs MD; Kena Macedo NP; Colt Vail MD Technologist: Anu Denis Trnscb Date/Time: 12/17/2021 (1901) [email or web address] Orig Print D/T: S: 12/17/2021 (1902) Probe: PAGE 2 Signed Report- DUP VEIN [id number] 00:00:[address] [address] : 1945 Sex: F Name: SAÚL GILES [facility] : 1945 Age/S: 76 / F [address] [place] [address] Unit #: [id number] Loc: [place] [address] Phys: Kena Macedo NP Acct: [id number] Dis Date: Status: ADM INPHONE #: [phone] Exam Date: 12/17/2021 1847 FAX #: [phone] Reason: Cardiac Surgery Pre Op EXAMS: CPT CODE: [id number] DUP VEIN RAJAN 43074 PROCEDURE INFORMATION: Exam: US Duplex Lower Extremity Veins; Vein mapping Exam date and time: 12/17/2021 6:12 PM Age: 76 years old Clinical indication: Screening exam; Pre op; Additional info: Cardiac surgery pre op TECHNIQUE: Imaging protocol: Real-time duplex ultrasound of the Lower Extremities with 2-D jimenez scale, color Doppler flow and spectral waveform analysis with image documentation. Complete exam focused on the bilateral lower extremity veins forvein mapping. COMPARISON: No relevant prior studies available. FINDINGS: Right superficial veins: Normal Doppler waveforms. Normal compressibility. Greater saphenous vein is patent. Right greater saphenous vein- upper thigh: 6.5 mm Right greater saphenous vein-mid thigh: 6.5 mm Right greater saphenous vein-lower thigh: 7.7 mm Right greater saphenous vein-upper le.3 mm Right greater saphenous vein-mid le.7 mm Right greater saphenous vein- lower le.2 mm Left superficial veins: Normal Dopplerwaveforms. Normal compressibility. Greater saphenous vein is patent. Left greater saphenous vein-upper thigh: 11.0 mm Left greater saphenous vein-mid thigh: 8.0 mm Left greater saphenous vein-lower thigh: 6.5 mm Left greater saphenous vein-upper le.1 mm Left greater saphenous vein-mid le.5 mm Left greater saphenous vein-lower le.9 mm Soft tissues: Unremarkable. IMPRESSION: Greater saphenous vein is patent. Vein mapping as described. at 2001 Reported and signed by: Anoop Lilly M.D. CC: Jeffry Hsu MD; Abdiaziz Fuchs MD; Kena Macedo NP; Colt Vail MD Technologist: Anu Denis Trnmnb Date/Time: 12/17/2021 (2001) [email or web address] Orig Print D/T: S: 12/17/2021 (2001) Probe: PAGE 1 Signed ReportCBC W/AUTO DIFF 2021-12-12 13:43:00 Test Item Value Reference Range Interpretation Comments WHITE BLOOD CELL (test code = 4.1 x10 3/uL 4.5-11.0 L WBC) RED BLOOD CELL (test code = 3.26 x10 6/uL 3.54-5.02 L RBC) HEMOGLOBIN (test code = HGB) 11.4 g/dL 11.0-15.0 N HEMATOCRIT (test code = HCT) 35.1 % 33.0-45.0 N MEAN CELL VOLUME (test code = 107.7 fL 81.0-99.0 H MCV) MEAN CELL HGB (test code = MCH) 35.0 pg 27.0-33.0 H MEAN CELL HGB CONCETRATION 32.5 g/dL 33.0-37.0 L (test code = MCHC) RED CELL DISTRIBUTION WIDTH CV 15.9 % 11.5-14.5 H (test code = RDW) RED CELL DISTRIBUTION WIDTH SD 63.6 fL 37.0-54.0 H (test code = RDW-SD) PLATELET COUNT (test code = 119 x10 3/uL 150-400 L PLT) IMMATURE PLATELET FRACTION 5.4 % 0.9-11.2 N (test code = IPF) MEAN PLATELET VOLUME (test code 11.9 fL 7.0-9.0 H = MPV) NEUTROPHIL % (test code = NT%) 80.9 % 56.0-77.0 H IMMATURE GRANULOCYTE % (test 0.5 % 0.0-2.0 N code = IG%) LYMPHOCYTE % (test code = LY%) 10.0 % 14.0-32.0 L MONOCYTE % (test code = MO%) 7.1 % 4.8-9.0 N EOSINOPHIL % (test code = EO%) 1.0 % 0.3-3.7 N BASOPHIL % (test code = BA%) 0.5 % 0.0-2.0 N NUCLEATED RBC % (test code = 0.0 % 0-0 N NRBC%) NEUTROPHIL # (test code = NT#) 3.30 x10 3/uL 2.0-7.6 N IMMATURE GRANULOCYTE # (test 0.02 x10 3/uL 0.00-0.03 N code = IG#) LYMPHOCYTE # (test code = LY#) 0.41 x10 3/uL 1.0-3.8 L MONOCYTE # (test code = MO#) 0.29 x10 3/uL 0.1-0.8 N EOSINOPHIL # (test code = EO#) 0.04 x10 3/uL 0.0-0.2 N BASOPHIL # (test code = BA#) 0.02 x10 3/uL 0.0-0.2 N NUCLEATED RBC # (test code = 0.00 x10 3/uL 0.0-0.1 N NRBC#) MANUAL DIFF REQUIRED (test code NO = MDIFF) BASIC METABOLIC [id number] 13:35:00 Test Item Value Reference Range Interpretation Comments SODIUM (test code = NA) 141 mEq/L 134-147 N POTASSIUM (test code = 3.9 mEq/L 3.4-5.0 N K) CHLORIDE (test code = 101 mEq/L 100-108 N CL) CARBON DIOXIDE (test 31 mEq/l 21-33 N code = CO2) ANION GAP (test code = 13 0-20 N GAP) GLUCOSE (test code = 158 mg/dL 70-110 H GLU) BLOOD UREA NITROGEN 26 mg/dL 7-18 H (test code = BUN) GLOMERULAR FILTRATION 53.6 70-80 L Units of measure = RATE (test code = GFR) ml/mi n/1.73 m2 CREATININE (test code = 1.0 mg/dL 0.6-1.3 N CREAT) CALCIUM (test code = 9.6 mg/dL 8.0-10.5 N CA) PROTHROMBIN [id number] 13:09:00 Test Item Value Reference Range Interpretation Comments PROTHROMBIN TIME 18.0 SECONDS 9.3-12.9 H PATIENT (test code = PTP) INTERNATIONAL NORMAL 1.6 0.8-1.2 H TARGET INR BY RATIO (test code = INDICATIO N Indication INR) INR1. Prophylax is of venous thrombos is 2.0 - 3.0 (orthoped ic surgery), Proph ylaxis of venous throm bosis (other than hig h-risk surgery), Treat ment of Deep Vein Thrombosis/Pulm onary Embolism, Preve ntion of systemic emb olism - Tissue heart va lves, Acute Myocardia l Infarction (to prevent systemic emboli sm), Valvular heart disease, Atrial Fibrillation, Bileaflet mecha nical valve in aortic position.2. Mec hanical prosthetic valv es (high risk), 2. 5 - 3.5 Presence of Lup us Anticoagulant o r Antiphospholipi d Antibodies, Pre vention of systemic emb olism - Acute Myocardia l Infarction (to prevent recurrent infar ct). - XR CHEST 2 [id number] 00:00:00 [facility] : 1945 Sex: F FAX:Abdiaziz Christiansen MD [phone] [place]: St: PRE FAX: Colt Aguillon MD [phone] Name: SAÚL GILES [facility] : 1945 Age/S: 76/F [address] [place] [address] Unit #: [id number] Loc: [place] [address] Phys: Colt Vail MD Acct: [id number] Dis Date: Status: PRE [facility] [place]ONE #: [phone] Exam Date : 12/12/2021 1333 FAX #: [phone] Reason: PREOP EXAMS: CPT CODE: [id number] XR CHEST 2 V 33378 PROCEDURE INFORMATION: Exam: XR Chest Exam date and time: 12/12/2021 1:33 PM Age: 76 years old Clinicalindication: Other: Preop TECHNIQUE: Imaging protocol: Radiologic exam of the chest. Views: 2 views. PA and Lateral COMPARISON: No relevant prior studies available. FINDINGS: Tubes, catheters and devices: Left chest cardiac device is seen with leads overlying the atrium and ventricle. Lungs: Minimal bilateral atelectasis or scarring. No consolidation. Pleural spaces: No pleural effusion. Heart/Mediastinum: Cardiomegaly with minimal central venous congestion. Vasculature: There is atherosclerotic calci fication of the aorta. Bones/joints: No gross acute findings. IMPRESSION: Cardiomegaly with minimalcentral venous congestion. at 1531 Reported and signed by: Amina Garcia D.O. CC: Abdiaziz Fuchs MD; Colt Vail MD Technologist: MAXIMILIANO Harris) Trnscrd Date/Time/By: 12/12/2021 (2778) : By: [email or web address] Orig Print D/T: S:12/12/2021 (9371) PAGE 1 Signed Report
[2022-03-24 11:58] LABS: Urine Blood Negative (Negative); Urine Glucose Negative (Negative); Urine Protein Negative (Negative); Urine pH 5.5 (5.0-7.0)
--- NOTE | 2022-03-24 12:42 | RAD REPORT ---
EXAM DESCRIPTION: RAD - Chest Single View - 03/24/2022 12:28 pm CLINICAL HISTORY: SWELLING COMPARISON: Portable 11/05/2021 TECHNIQUE: AP portable chest image was obtained 03/24/2022 12:28 pm . FINDINGS: Chronic interstitial opacification is present. Pattern is similar to the October comparison study. A mild interstitial edema or interstitial infiltrate could be masked. No peripheral mass or c onsolidations seen. Trachea is midline. Sternotomy wires are present along with cardiac valve replacement hardware. These postsurgical changes are new from the comparison study. The 2 lead left subclavian pacemaker remains in place. Heart size is normal. No measurable pleural effusion and no pneumothorax. No acute bony abnormality seen. No acute aortic findings suspected. IMPRESSION: Chronic interstitial opacification not significantly different from comparison. Mild interstitial edema or interstitial infiltrate could be masked.
[2022-03-24 12:48] LABS: Absolute Lymphocytes (CBC) 0.3 K/uL (0.7-4.9); Hematocrit 38.1 % (36.0-45.0); Lymphocytes % 4.9 % (15.3-44.8); MCV 97.8 fL (80-100); MPV 8.9 fL (7.6-11.3); RBC Red Blood Cell Count 3.89 M/uL (3.86-4.86)
[2022-03-24 13:08] LABS: Magnesium 1.9 mg/dL (1.6-2.4); Troponin High Sensitivity 9.3 pg/mL (<58.9)
[2022-03-24 13:19] LABS: Protime INR 1.25
[2022-03-24 14:03] LABS: SARS-CoV-2 Antigen Rapid Res Positive (Negative)
--- NOTE | 2022-03-24 14:54 | EDPHYS ---
Physician Documentation [facility] Name: Kiah Taylor Age: 76 yrs Sex: Female : 1945 Arrival Date: 03/24/2022 Time: 11:37 Bed 7 Private MD: Azul Fuchs C ED Physician Mallika Garcia HPI: 03/24 14:51 This 76 yrs old Female presents to ER via Wheelchair with complaints of Fluid retention.kb 14:51 The patient has shortness of breath at rest. Onset: The symptoms/episode began/occurred kb last month. Duration: The symptoms are continuous. The patient's shortness of breath is aggravated by exertion, is alleviated by nothing. Associated signs and symptoms: Pertinent positives: non-productive cough. Severity of symptoms: At their worst the symptoms were moderate in the emergency department the symptoms are unchanged. The patient has not experienced similar symptoms in the past. The patient has been recently seen by a physician:. Pt reports she had a follow up with Dr Vail today and was sent to the ER for fluid overload. Pt also reports shortness of breath and dry cough for 2 days. Historical: - Allergies: 11:42 Ciprofloxacin; ll1 11:42 Morphine; ll1 - Home Meds: 13:45 methotrexate sodium 2.5 mg Oral tab 5 tabs once wkly [Active]; metoprolol tartrate 25 iw mg Oral tab 1 tab once daily [Active]; folic acid 1 mg Oral tab 1 tab once daily [Active]; lisinopril 5 mg Oral tab 1 tab once daily [Active]; atorvastatin 40 mg oral tab 1 tab once daily [Active]; clopidogrel 75 mg oral tab 1 tab once daily [Active]; omeprazole 20 mg Oral cpDR 1 cap once daily [Active]; potassium chloride 20 mEq Oral TbER 1 tab 2 times per day [Active]; furosemide 80 mg Oral tab 1 tab 2 times per day [Active]; aspirin 81 mg Oral cap 1 cap once daily [Active]; metolazone 2.5 mg oral tab 1 tab once daily [Active]; trazodone 50 mg Oral tab 1 tab once daily [Active]; Humalog U-100 Insulin 100 unit/mL Sub-Q crtg three times a day [Active]; Levemir U-100 Insulin 100 unit/mL subcutaneous soln 50 unit twice a day [Active]; Humira 40 mg/0.8 mL subcutaneous sykt every 2 wks [Active]; - PMHx: 11:42 AFIB; Crohn's Disease; diabetes mellitus; Hypertensive disorder; ll1 - PSHx: 11:42 pacemaker; heart SX; ll1 - Immunization history:: Client reports receiving the 2nd dose of the Covid vaccine. - Social history:: Smoking status: Patient denies any tobacco usage or history of. ROS: 14:26 Constitutional: Negative for fever, chills, and weight loss. kb 14:26 Cardiovascular: Positive for edema. 14:26 All other systems are negative. 14:27 Respiratory: Positive for cough, shortness of breath. kb Exam: 14:27 Constitutional: This is a well developed, well nourished patient who is awake, alert, kb and in no acute distress. Head/Face: Normocephalic, atraumatic. ENT: Moist Mucous membranes Cardiovascular: Regular rate and rhythm with a normal S1 and S2. No gallops, murmurs, or rubs. No pulse deficits. Respiratory: Respirations even and unlabored. No increased work of breathing. Talking in full sentences Abdomen/GI: Soft, non-tender. No distention Skin: Warm, dry with normal turgor. Normal color. MS/ Extremity: Pulses equal, no cyanosis. Neurovascular intact. Full, normal range of motion. Neuro: Awake and alert, GCS 15, oriented to person, place, time, and situation. Moves all extremities. Normal gait. Psych: Awake, alert, with orientation to person, place and time. Behavior, mood, and affect are within normal limits. 14:27 ECG was reviewed by the Attending Physician. Vital Signs: 11:41 BP 164 / 71; Pulse 72; Resp 20; Temp 98.3; Pulse Ox 91% on R/A; ll1 13:00 BP 186 / 91; Pulse 77; Resp 18; Pulse Ox 95% on R/A; ph 14:00 BP 172 / 81; Pulse 75; Resp 18; Pulse Ox 92% on R/A; ph 15:00 BP 162 / 90; Pulse 74; Resp 18; Pulse Ox 92% on R/A; ph 16:00 BP 167 / 66; Pulse 70; Resp 18; Pulse Ox 95% on R/A; ph 17:30 BP 176 / 75; Pulse 70; Resp 21; Pulse Ox 92% on R/A; ph 18:48 BP 161 / 74; Pulse 70; Resp 16; Pulse Ox 92% on R/A; ph MDM: 11:39 Patient medically screened. kb 14:25 Data reviewed: vital signs, nurses notes. Consideration of Admission/Observation kb Patient was admitted/placed on observation. Management of patient was discussed with the following: Program Aide: Yared saleh pt admitted for IV diuretics. Primary Care Provider: Shila. Historians other than the Patient: Daughter/Son: Daughter. Care significantly affected by the following chronic conditions: Congestive Heart Failure. Counseling: I had a detailed discussion with the patient and/or guardian regarding: the historical points, exam findings, and any diagnostic results supporting the discharge/admit diagnosis, lab results, radiology results, the need for further work-up and treatment in the hospital. 14:50 Differential diagnosis: CHF exacerbation, pneumonia, pulmonary edema, flu, covid. I kb considered the following discharge prescriptions or medication management in the emergency department Antibiotics: At this time antibiotics are not recommended. 03/24 11:39 Order name: Basic Metabolic Panel; Complete Time: 13:10 kb 03/24 11:39 Order name: CBC with Diff; Complete Time: 12:56 kb 03/24 11:39 Order name: Magnesium; Complete Time: 13:10 kb 03/24 11:39 Order name: NT PRO-BNP; Complete Time: 13:10 kb 03/24 11:39 Order name: PT-INR; Complete Time: 13:20 kb 03/24 11:39 Order name: Troponin HS; Complete Time: 13:10 kb 03/24 11:39 Order name: XRAY Chest (1 view); Complete Time: 12:56 kb 03/24 11:39 Order name: EKG; Complete Time: 11:39 kb 03/24 11:39 Order name: Cardiac monitoring; Complete Time: 13:06 kb 03/24 11:45 Order name: SARS RAPID; Complete Time: 14:05 kb 03/24 11:58 Order name: Urine Dipstick-Ancillary; Complete Time: 12:07 EDMS 03/24 11:39 Order name: EKG - Nurse/Tech; Complete Time: 13:55 kb 03/24 11:39 Order name: IV Saline Lock; Complete Time: 12:38 kb 03/24 11:39 Order name: Labs collected and sent; Complete Time: 12:38 kb 03/24 11:39 Order name: O2 Per Protocol; Complete Time: 13:06 kb 03/24 11:39 Order name: O2 Sat Monitoring; Complete Time: 13:06 kb 03/24 13:11 Order name: Misc. Order: enter home med list please; Complete Time: 13:51 kb EC:27 Rate is 76 beats/min. Rhythm is regular. QRS [place] is Normal. QRS interval is normal at kb 160 msec. QT interval is prolonged at 535 msec. Administered Medications: 16:30 Drug: Potassium Chloride 40 mEq Route: PO; ph 18:53 Follow up: Response: No adverse reaction ph 16:30 Drug: Lasix (furosemide) 40 mg Route: IVP; Site: left forearm; ph 18:53 Follow up: Response: No adverse reaction ph 18:16 Drug: Tylenol 650 mg Route: PO; ph 18:54 Follow up: Response: No adverse reaction ph Disposition Summary: 03/24/22 14:53 Hospitalization Ordered Hospitalization Status: Inpatient Admission kb Provider: Azul Fuchs Condition: Stable kb Problem: new kb Symptoms: are unchanged kb Bed/Room Type: Standard kb Location: Telemetry/MedSurg (Inpatient)(03/24/22 20:01) cg Room Assignment: [facility](03/24/22 20:01) Diagnosis - SARS-associated coronavirus as the cause of diseases classified elsewhere kb - Fluid overload kb - Hypokalemia kb Forms: - Medication Reconciliation Form kb - SBAR form kb Signatures: Dispatcher [employer] EDAdriana Velazco, HAMMAD-Juan FRUIT OR NUT FARMWORKER-Ckb Phylicia Fuentes RN RN iw Hall, Patricia, RN RN ph Garcia, Cindy, RN RN cg Aguilar, Jose RN RN Jorge Mobley RN RN Mallika Joyce MD MD sp3 Corrections: (The following items were deleted from the chart) 14:52 14:25 Management of patient was discussed with the following: Program Aide: Yared mckeon Primary Care Provider: Amin. mckeon 17:52 14:53 Telemetry/MedSurg (Inpatient) [facility] 17:52 14:53 [facility] 20: 17:52 [facility] ER HOLD ja1 cg 20:01 17:52 ERHOLD- ja1 cg
--- NOTE | 2022-03-24 14:54 | ER ---
Nurse's Notes [facility] Name: Kiah Taylor Age: 76 yrs Sex: Female : 1945 Arrival Date: 03/24/2022 Time: 11:37 Bed 7 Private MD: Azul Fuchs C Diagnosis: SARS-associated coronavirus as the cause of diseases classified elsewhere;Fluid overload;Hypokalemia Presentation: 03/24 11:41 Chief complaint: Patient states: SOB for 2 days. Sent in by Dr. Vail for admission ll1 for fluid overload and cough. Coronavirus screen: Vaccine status: Patient reports receiving the 2nd dose of the covid vaccine. Client denies travel out of the [place] in the last 14 days. cough unrelated to allergies, difficulty breathing, fatigue, shortness of breath, Client presents with at least one sign or symptom that may indicate coronavirus-19. Standard/surgical mask placed on the client. Ebola Screen: Patient denies travel to an Ebola-affected area in the 21 days before illness onset. Initial Sepsis Screen: Does the patient meet any 2 criteria? No. Patient's initial sepsis screen is negative. Does the patient have a suspected source of infection? Yes: Productive cough/pneumonia. Risk Assessment: Do you want to hurt yourself or someone else? Patient reports no desire to harm self or others. Onset of symptoms was March 23, 2022. 11:41 Method Of Arrival: Wheelchair ll1 11:41 Acuity: ANNIE 3 ll1 Historical: - Allergies: 11:42 Ciprofloxacin; ll1 11:42 Morphine; ll1 - Home Meds: 13:45 methotrexate sodium 2.5 mg Oral tab 5 tabs once wkly [Active]; metoprolol tartrate 25 iw mg Oral tab 1 tab once daily [Active]; folic acid 1 mg Oral tab 1 tab once daily [Active]; lisinopril 5 mg Oral tab 1 tab once daily [Active]; atorvastatin 40 mg oral tab 1 tab once daily [Active]; clopidogrel 75 mg oral tab 1 tab once daily [Active]; omeprazole 20 mg Oral cpDR 1 cap once daily [Active]; potassium chloride 20 mEq Oral TbER 1 tab 2 times per day [Active]; furosemide 80 mg Oral tab 1 tab 2 times per day [Active]; aspirin 81 mg Oral cap 1 cap once daily [Active]; metolazone 2.5 mg oral tab 1 tab once daily [Active]; trazodone 50 mg Oral tab 1 tab once daily [Active]; Humalog U-100 Insulin 100 unit/mL Sub-Q crtg three times a day [Active]; Levemir U-100 Insulin 100 unit/mL subcutaneous soln 50 unit twice a day [Active]; Humira 40 mg/0.8 mL subcutaneous sykt every 2 wks [Active]; - PMHx: 11:42 AFIB; Crohn's Disease; diabetes mellitus; Hypertensive disorder; ll1 - PSHx: 11:42 pacemaker; heart SX; ll1 - Immunization history:: Client reports receiving the 2nd dose of the Covid vaccine. - Social history:: Smoking status: Patient denies any tobacco usage or history of. Screenin:35 [facility] ED Fall Risk Assessment (Adult) History of falling in the last 3 months, ph including since admission No falls in past 3 months (0 pts) Confusion or Disorientation No (0 pts) Intoxicated or Sedated No (0 pts) Impaired Gait Yes (1 pt) Mobility Assist Device Used Yes (1 pt) Altered Elimination Yes (1 pt) Score/Fall Risk Level 0 - 2 = Low Risk Oriented to surroundings, Maintained a safe environment, Hourly rounding (assess needs \T\ fall precautionary measures) done. Abuse screen: Denies threats or abuse. Denies injuries from another. Nutritional screening: No deficits noted. Tuberculosis screening: No symptoms or risk factors identified. Assessment: 12:30 General: Appears in no apparent distress. obese, well groomed, Behavior is calm, ph cooperative, appropriate for age, Denies fever. Pain: Denies pain. Neuro: Level of Consciousness is awake, alert, obeys commands, Oriented to person, place, time, situation. Cardiovascular: Reports fatigue, shortness of breath, Rhythm is atrial pacer. Respiratory: Airway is patent Respiratory effort is even, unlabored, Respiratory pattern is regular, symmetrical. GI: No signs and/or symptoms were reported involving the gastrointestinal system. Derm: Skin is healthy with good turgor, Skin is pink, warm \T\ dry. Musculoskeletal: Circulation, motion, and sensation intact. Range of motion: intact in all extremities. 13:45 Reassessment: Patient appears in no apparent distress at this time. Patient and/or iw family updated on plan of care and expected duration. Pain level reassessed. Patient is alert, oriented x 3, equal unlabored respirations, skin warm/dry/pink. 15:00 Reassessment: Patient appears in no apparent distress at this time. Patient and/or ph family updated on plan of care and expected duration. Pain level reassessed. Patient is alert, oriented x 3, equal unlabored respirations, skin warm/dry/pink. 16:00 Reassessment: Patient appears in no apparent distress at this time. Patient and/or ph family updated on plan of care and expected duration. Pain level reassessed. Patient is alert, oriented x 3, equal unlabored respirations, skin warm/dry/pink. 17:00 Reassessment: Patient appears in no apparent distress at this time. Patient and/or ph family updated on plan of care and expected duration. Pain level reassessed. Patient is alert, oriented x 3, equal unlabored respirations, skin warm/dry/pink. 19:17 General: Rebecca (daughter) [phone]. as6 Vital Signs: 11:41 BP 164 / 71; Pulse 72; Resp 20; Temp 98.3; Pulse Ox 91% on R/A; ll1 13:00 BP 186 / 91; Pulse 77; Resp 18; Pulse Ox 95% on R/A; ph 14:00 BP 172 / 81; Pulse 75; Resp 18; Pulse Ox 92% on R/A; ph 15:00 BP 162 / 90; Pulse 74; Resp 18; Pulse Ox 92% on R/A; ph 16:00 BP 167 / 66; Pulse 70; Resp 18; Pulse Ox 95% on R/A; ph 17:30 BP 176 / 75; Pulse 70; Resp 21; Pulse Ox 92% on R/A; ph 18:48 BP 161 / 74; Pulse 70; Resp 16; Pulse Ox 92% on R/A; ph ED Course: 11:37 Patient arrived in ED. mr 11:37 Azul Fuchs MD is Private Physician. mr 11:38 Adriana Chowdhury, [facility]. kb 11:38 Mallika Garcia MD is Attending Physician. kb 11:42 Triage completed. ll1 11:43 Arm band placed on Patient placed in an exam room, on a stretcher. ll1 12:26 Peyton Cochran, RN is Primary Nurse. ph 12:30 XRAY Chest (1 view) In Process Unspecified. EDMS 13:00 Inserted saline lock: 22 gauge in right forearm, using aseptic technique. ph 14:53 Mallika Garcia MD is Hospitalizing Provider. kb 14:53 Azul Fuchs MD is Hospitalizing Provider. kb 18:36 Patient has correct armband on for positive identification. Placed in gown. Bed in low ph position. Call light in reach. Side rails up X 1. Client placed on continuous cardiac and pulse oximetry monitoring. NIBP monitoring applied. 18:36 No provider procedures requiring assistance completed. Patient admitted, IV remains in ph place. 19:19 Primary Nurse role handed off by Peyton Cochran, RN mw2 Administered Medications: 16:30 Drug: Potassium Chloride 40 mEq Route: PO; ph 18:53 Follow up: Response: No adverse reaction ph 16:30 Drug: Lasix (furosemide) 40 mg Route: IVP; Site: left forearm; ph 18:53 Follow up: Response: No adverse reaction ph 18:16 Drug: Tylenol 650 mg Route: PO; ph 18:54 Follow up: Response: No adverse reaction ph Medication: 18:50 VIS not applicable for this client. ph Outcome: 14:53 Decision to Hospitalize by Provider. kb 19:18 Admitted to ER Hold. Please see [facility] for further documentation. ph 19:18 Condition: stable 19:18 Instructed on the need for admit. 20:59 Patient left the ED. as6 Signatures: Dispatcher [employer] EDKY Adriana Chowdhury, TURPENTINER-C TURPENTINER-Lucas Analy Shepard Phylicia Fuentes, RN RN Peyton Cochran, RN RN Wilver Ochoa mw2 Jorge Webb RN RN ll1 Get Pelletier RN RN as6
[2022-03-24] MEDS ORDERED: POTASSIUM CL SA 10 MEQ TAB PO ONE (16:48)
[2022-03-24] MEDS ORDERED: FUROSEMIDE 40 MG/4 ML VIAL ONE (16:48)
[2022-03-24] MEDS: FUROSEMIDE 20 MG/ 2ML VIAL IV SCH (17:32)
[2022-03-24] MEDS ORDERED: ACETAMINOPHEN 325 MG TABLET ONE (18:02)
[2022-03-24 22:35] VITALS: BMI 42.4
[2022-03-25 05:07] LABS: Absolute Lymphocytes (CBC) 0.4 K/uL (0.7-4.9); Hematocrit 36.9 % (36.0-45.0); Lymphocytes % 8.9 % (15.3-44.8); MCV 102.4 fL (80-100); MPV 9.3 fL (7.6-11.3); RBC Red Blood Cell Count 3.61 M/uL (3.86-4.86)
[2022-03-25 05:26] LABS: Potassium 2.9 mmol/L (3.5-5.1)
[2022-03-25] MEDS ORDERED: D50W 25 GM/50 ML SYRINGE IV PRN (05:33)
[2022-03-25] MEDS ORDERED: GLUCAGON 1 MG/VIAL IM PRN (05:33)
[2022-03-25] MEDS ORDERED: D10W 125 ML IV PRN (05:39)
[2022-03-25 05:40] LABS: Magnesium 1.6 mg/dL (1.6-2.4)
[2022-03-25] MEDS ORDERED: KCL 20 MEQ/100 mL IVPB 20 MEQ/100 ML BAG IV SCH (06:00)
[2022-03-25] MEDS ORDERED: NA CHLORIDE 0.9% 500 ML ONE (06:10)
[2022-03-25 06:43] LABS: Blood Morphology Comment NOT SEEN (NOT SEEN); Platelet Estimate ADEQ
[2022-03-25] MEDS: INSULIN -REGULAR HUMAN 50 UNIT/0.5 ML ML SQ SCH ×4 (07:30→21:58)
[2022-03-25] MEDS ORDERED: POTASSIUM CL SA 10 MEQ TAB PO ONE ×2 (07:33→21:00)
[2022-03-25] MEDS ORDERED: PNEUMOCOCCAL VACCINE 0.5 ML IMVAC ONE (08:00)
[2022-03-25] MEDS ORDERED: INFLUENZA VACCINE (for 6+ mo) 0.5 ML DOSE IMVAC ONE (08:00)
[2022-03-25] MEDS: FUROSEMIDE 20 MG/ 2ML VIAL IV SCH ×2 (10:42→17:09)
[2022-03-25] MEDS ORDERED: MAGNESIUM SULFATE 1 gm IVPB 1 GM/100 ML BAG IV ONE (12:00)
--- NOTE | 2022-03-25 12:11 | P.CNS ---
Date of Consult: 03/25/22 Reason for Consult: COVID-positive shortness of Chief Complaint: Shortness of breath and cough History of Present Illness: Patient is 76 years of age has been having shortness of breath and cough since his surgery in December 23 of cardiopulmonary artery bypass grafting and she also had a pericardiectomy and never really recovered after the procedure and pain had worsened incidentally tested positive for COVID prior history of pulmonary complaints does not smoke patient has metabolic syndrome diabetes hypertension also complaining of generalized swelling Allergies ciprofloxacin [From Cipro] Allergy (Mild, Verified 03/24/22 22:35) Joint Pain morphine Allergy (Verified 03/24/22 22:35) Itching/Hives/Rash Home Medications: Amlodipine Besylate [Norvasc] 5 mg PO BID 01/10/12 Clonidine HCl 0.3 mg PO BID 01/10/12 Glimepiride [Amaryl] 4 mg PO BID 01/10/12 Insulin Detemir [Levemir] 50 units SQ BID 01/10/12 Lisinopril 40 mg PO DAILY 01/10/12 Metformin HCl 1,000 mg PO BID 01/10/12 Pravastatin [Pravachol*] 10 mg PO BEDTIME 01/10/12 Omeprazole [Prilosec] 20 mg PO DAILY 01/06/13 Allopurinol 150 mg PO DAILY 12/09/20 Furosemide 80 mg PO BID 12/09/20 Insulin Lispro [Humalog*] See Protocol SQ TIDWM 12/09/20 Liraglutide [Victoza 2-Raciel] 1.8 mg SQ DAILY 12/09/20 Metolazone [Zaroxolyn] 10 mg PO SEECOM 12/09/20 Olmesartan Medoxomil [Benicar] 40 mg PO DAILY 12/09/20 Potassium Chloride 10 meq PO DAILY 12/09/20 Rivaroxaban [Xarelto] 20 mg PO DAILY 12/09/20 azaTHIOprine [Azathioprine] 50 mg PO DAILY 12/09/20 Doxazosin [Cardura*] 4 mg PO BID 11/06/21 Fluticasone/Salmeterol [Advair 250-50 Diskus] 1 each IH BID #60 11/08/21 - Past Medical/Surgical History Diabetic: Yes -: IDDM2 -: CHROHN -: HTN -: AFIB -: LYMPHEDEMA -: HLD -: cardioversion X6 -: Cardiac ablasions X2 -: hysterectomy -: choly -: colon removed (5in. of sm and lg. intestine) -: pacemaker -: mitral valve replacement and cardiac bypass Dec 2021 - Social History Smoking Status: Former smoker Alcohol use: No CD- Drugs: No Caffeine use: No Place of Residence: Home Review of Systems General: Weakness Respiratory: Cough, Shortness of Breath Physical Examination Temp Pulse Resp BP Pulse Ox 98.1 F 75 16 164/69 H 94 03/25/22 08:00 03/25/22 10:42 03/25/22 08:00 03/25/22 10:42 03/25/22 08:00 General: Alert, In no apparent distress, Oriented x3 Respiratory: Diminished, Crackles/rales Cardiovascular: No edema, Regular rate/rhythm, Normal S1 S2 Gastrointestinal: Normal bowel sounds, Soft and benign Laboratory Data (last 24 hrs) 03/24/22 12:52: PT 13.8 H, INR 1.25 03/24/22 12:39: WBC 5.50, Hgb 12.6, Hct 38.1, Plt Count 171 03/24/22 12:39: Sodium 135 L, Potassium 3.0 L, BUN 30 H, Creatinine 0.94, Glucose 230 H, Magnesium 1.9 - Problems (1) SARS-CoV-2 positive Current Visit: Yes Status: Acute Plan: Patient is 76 years of age. With worsening dyspnea and cough since December 23 she had a CABG with a pericardectomy also has some lower extremity edema patient tested positive for coronavirus chest x-ray shows cardiomegaly no obvious infiltrates or groundglass changes mild hypokalemia BNP is mildly elevated patient's white count is normal an echocardiogram on October 2021 showed pulmonary hypertension presumed secondary to diastolic dysfunction add spironolactone patient is hypokalemic I presume secondary to diuretic oxygenation is satisfactory patient is currently taking low-dose amiodarone only on hold
--- NOTE | 2022-03-25 12:37 | CON ---
Date of Consultation: 03/25/2022 Reason For Consultation: Volume overload, congestive heart failure. History Of Present Illness: Ms. Taylor is a patient, who is 76. Has a history of pacemaker, atrial f ibrillation, diabetes, Crohn disease, hypertension, dyslipidemia, coronary artery disease. She had a catheterization in November 2021 showing about a 40% to 50% LAD stenosis. She was supposed to have a stress test after that to evaluate the physiological significance of the LAD stenosis, but that prescott s not happened yet. She comes in with shortness of breath, PND, orthopnea, pedal edema, and COVID po sitive. She is known to have normal ejection fraction, pulmonary hypertension. Chest x-ray showed c hronic interstitial disease suggestive of edema. Potassium is 2.9. BNP is 654. EKG showed a paced rhythm. She has improved after diuresis, but continues to be slightly short of breath. She denied a ny chest pain or syncope. Denied any fever or chills. Denied any cough. Past Medical History: As stated above. Allergies: SHE IS ALLERGIC TO CIPRO AND MORPHINE. Medications: Include Cardura, Neurontin, clonidine, Lasix, insulin, glimepiride, Victoza, lisinopril , metoprolol, and metformin, Xarelto, pravastatin, potassium. Physical Examination: Vital Signs: Ms. Taylor's blood pressure was 105/82. She was mildly short of breath. She has obesit y. She was afebrile. HEENT: Negative. Neck: Supple with no bruit, lymphadenopathy, JVD, or thyromegaly. Chest: Revealed rales both bases. Cardiac: Revealed a paced rhythm. No murmurs, gallops, or rubs. Abdomen: Obese, but benign. Extremities: Revealed 1+ edema to the knees. Skin: Dry and intact. Neurologic: She was nonfocal. Diagnostic Data: As stated earlier. Impression And Plan: 1.Acute on chronic diastolic congestive heart failure. 2.Pulmonary hypertension. 3.Status post pacemaker. 4.Hypokalemia. 5.Atrial fibrillation, on Xarelto. 6.Dyslipidemia, on pravastatin. 7.Hypertension. She is on Cardura, clonidine. 8.Diabetes. She is on Victoza and metformin as well as glimepiride and insulin. Again, I would con tinue her present regimen, aggressively diurese her, and we should re-address her LAD stenosis. I th ink she should have a stress test sometime down the road as an outpatient. I will discuss the case f mya with Dr. Fuchs. SOCORRO/ONI Voice ID: [id number] Report ID: [id number]
[2022-03-25] MEDS: SPIRONOLACTONE 25 MG TABLET PO SCH ×2 (13:34→22:00)
[2022-03-25] MEDS: dexAMETHasone 4 MG TAB PO SCH (13:35)
--- NOTE | 2022-03-25 14:55 | EKG ---
Test Date: 2022-03-24 Test Time: 14:23:06 Chief Of Service: ROYAL MEASUREMENT RESULTS: Intervals: Rate: 76 TN: QRSD: 160 QT: 476 QTc: 535 [place]: P: TN: QRS: 163 T: -12 INTERPRETIVE STATEMENTS: Ventricular-paced rhythm Abnormal ECG Compared to ECG 11/19/2021 10:53:20 No significant changes Electronically Signed On 03-25-22 14:54:24 TOWN PLANNER by Colt Vail
[2022-03-25] MEDS: NIRMATRELVIR/RITONAVIR TABLET PO SCH ×2 (15:08→22:00)
[2022-03-25] MEDS ORDERED: AMLODIPINE 5 MG TAB PO ONE (19:10)
--- NOTE | 2022-03-25 20:22 | HP ---
Date of Admission: 03/24/2022 Chief Complaint: Shortness of breath and weight gain. History Of Present Illness: Ms. Taylor is a 76-year-old female patient who has seen mechanic assistant 2 ti mes recently, 1 visit was yesterday and another visit was a week ago and when she was seen a week ago by mechanic assistant, she had gained 10 pounds and she was having shortness of breath, so he did adjust s ome diuretic medication for her. She does not know exactly what adjustment was done and yesterday luis regalado was seen again for followup visit after these changes were made and she was not feeling any better, so he advised her to come to emergency room and after she was evaluated in the ER, she was admitted to the hospital with acute exacerbation of her congestive heart failure and she was also tested posit cristian for COVID. She denies any expectoration. Denies any fever, chills, nausea, vomiting, or diarrhe a. Allergies: TO CIPRO CAUSING JOINT PAIN AND MORPHINE, DETAILS UNKNOWN. Review of Systems: Respiratory: As mentioned above. All other systems reviewed and negative. Medications: Aspirin 81 mg daily, atorvastatin 40 mg daily at bedtime, SlowMag she takes 1 tablet 3 times a day, and clopidogrel 75 mg daily. According to office records, she was taking furosemide 80 mg 2 times a day, but she does not know exactly what she takes now since her medication has been adju sted recently by Dr. Vail. She also takes Levemir insulin 50 units subcutaneous injection 2 times a day, Humalog insulin 10 units 3 times a day with meal, lisinopril 2.5 mg daily, metoprolol tartrate 25 mg 2 times a day, potassium chloride 20 mEq 2 times a day, and trazodone 50 mg half to 1 tablet d aily at bedtime. Past Medical History: Significant for hypothyroidism, hypertension, type 2 diabetes mellitus, chroni c atrial fibrillation, Crohn disease, diverticulosis, osteoarthritis at multiple sites, pancytopenia, insomnia, hypomagnesemia and congestive heart failure, chronic diastolic. Past Surgical History: Cataract surgery in 2020; pacemaker placement after ablation therapy; mitral valve replacement on December 19, 2021; coronary artery bypass surgery on December 19, 2021; pericardiect brii on December 19, 2021; left atrial appendage occlusion on December 19, 2021; cholecystectomy; partial resection of colon in the past; hysterectomy; removal of basal cell carcinoma and squamous cell carci noma in the past. Family History: Father and had aortic aneurysm and coronary artery disease. Mother , had c olon cancer and hypertension. Sister has breast cancer. Social History: Prior history of smoking, not at present time. Use of alcohol occasional. Physical Examination: Vital Signs: This morning temperature 97.5, pulse 70, respiratory rate 20, blood pressure 165/82, an d oxygen saturation 97% on 2 L nasal cannula oxygen. Height 5 feet 4 inches, weight 241 pounds. General: Awake, alert, oriented, not in distress. HEENT: Head atraumatic, normocephalic. Conjunctivae nonerythematous. Sclerae white. Mouth, no thr ush or edema noted. Ears/Nose, no mass, lesion, discharge noted. Neck: Supple. No JVD, lymph nodes, bruit, thyromegaly noted. Lungs: Presence of rales noted in bilateral lower lung lema. Not using any accessory muscles of r espiration at rest. Heart: Normal heart sounds, no murmur or gallop. Abdomen: Soft, bowel sounds normal. No guarding, rigidity, tenderness, mass, hepatosplenomegaly, dis tention, or bruit noted. Extremities: No leg edema. No calf tenderness. Skin: No rash, ulcer, cellulitis. Lymphatics: No lymph node enlargement in neck, supraclavicular, infraclavicular region. Neuro: No focal neurological deficit. Chest: Unremarkable. External Genitalia: Deferred. Rectal: Deferred. Laboratory Data: Yesterday white count 5.5, hemoglobin 12.6, and platelets 171. This morning white count is 4.1, hemoglobin 12.8, and platelets 151. Chemistry: Yesterday sodium 135, potassium 3, chl oride 95, bicarb 38, BUN 30, creatinine 0.94, and glucose 230. ProBNP 654 and troponin 9.3. Magnesi um 1.9. This morning magnesium is 1.6, sodium 138, potassium 2.9, chloride 91, bicarb 39, BUN 25, an d creatinine 0.88. COVID-19 test positive. Chest x-ray: Increased interstitial lung markings. Uri nalysis negative except trace leukocyte esterase. Impression: 1.COVID-19 infection. 2.Congestive heart failure, chronic, diastolic with acute exacerbation. 3.Hypokalemia. 4.Type 2 diabetes mellitus. 5.Hypertension. 6.Chronic atrial fibrillation. 7.Hyperlipidemia. 8.Crohn disease. 9.Diverticulosis. 10.Hypomagnesemia. 11.Osteoarthritis, multiple sites. Plan: Admit the patient to hospital for further evaluation and management of this problem. The michael ent is appropriate for inpatient and is expected to spend 2 midnights in hospital. The patient had 2 initial doses of COVID-19 vaccine in 2020. After that, she has not received any booster dose. So f ar she is not having any other specific symptoms related to COVID and we will go ahead and request co nsultation from Pulmonary physician Dr. Bran. For congestive heart failure, we will request cons ultation from her mechanic assistant, Dr. Vail and monitor intake, output, and daily weight. Start IV La six per order. For hypokalemia, we will go ahead and continue to replace potassium per order. Monit or electrolytes and renal function. Diabetes will be managed with sliding scale insulin per order. For hypomagnesemia, we will continue magnesium replacement therapy. We will continue her other [facility] home medications per order and I will see her tomorrow for followup. JESSICA/MODL Voice ID: [id number]
[2022-03-25] MEDS ORDERED: AMLODIPINE 5 MG TAB PO PRN (21:35)
[2022-03-25] MEDS ORDERED: guaiFENesin 100 MG/5 ML UCUP PO PRN (21:39)
[2022-03-25] MEDS: METOPROLOL TAR 25 MG TAB PO SCH (21:59)
[2022-03-25] MEDS ORDERED: BENZONATATE 100 MG CAP PO SCH (22:00)
[2022-03-25] MEDS: ATORVASTATIN 40 MG TAB PO SCH (22:02)
[2022-03-25] MEDS: ENOXAPARIN 40 MG/0.4 ML SQ SCH (22:02)
[2022-03-25] MEDS: BENZONATATE 100 MG CAP PO SCH (22:02)
[2022-03-26] MEDS: GUAIFENESIN/DM 5 ML UCUP PO PRN ×2 (00:24→20:51)
[2022-03-26 04:29] LABS: Magnesium 2.1 mg/dL (1.6-2.4); Potassium 4.1 mmol/L (3.5-5.1)
[2022-03-26] MEDS: METOPROLOL TAR 25 MG TAB PO SCH ×2 (05:07→17:37)
[2022-03-26] MEDS: BENZONATATE 100 MG CAP PO SCH ×4 (05:07→20:50)
[2022-03-26] MEDS: dexAMETHasone 4 MG TAB PO SCH (07:58)
[2022-03-26] MEDS: ASPIRIN 81 MG CHEWABLE TABLET PO SCH (07:58)
[2022-03-26] MEDS: SPIRONOLACTONE 25 MG TABLET PO SCH ×2 (07:59→20:50)
[2022-03-26] MEDS: CLOPIDOGREL 75 MG TABLET PO SCH (07:59)
[2022-03-26] MEDS: NIRMATRELVIR/RITONAVIR TABLET PO SCH ×2 (07:59→20:50)
[2022-03-26] MEDS: FUROSEMIDE 40 MG/4 ML VIAL IV SCH ×2 (08:38→16:40)
[2022-03-26] MEDS: INSULIN -REGULAR HUMAN 50 UNIT/0.5 ML ML SQ SCH ×4 (08:39→20:51)
[2022-03-26] MEDS ORDERED: POTASSIUM CL SA 10 MEQ TAB PO SCH (09:00)
[2022-03-26] MEDS ORDERED: INSULIN GLARGINE 100 UNIT/ML SQ SCH (09:00)
--- NOTE | 2022-03-26 10:12 | PN ---
Date of Progress Note: 03/26/2022 Ms. Taylor has been sent to the hospital for congestive heart failure by Dr. Vail. Today, her press ure is 169/84. Her potassium has improved from 2.8 to 4.1. She is still in a paced rhythm, O2 satur ation 97% on 2 L of nasal cannula. She is on beta-blockers, Aldactone, and Lasix for congestive hear t failure. We will continue this present regimen for now. We will discuss the case further with Dr. Fuchs. She can probably go home today or tomorrow. We will see her in the office afterwards. SOCORRO/ONI Voice ID: [id number] Report ID: [id number]
[2022-03-26] MEDS: cloNIDine HCL 0.1 MG TAB PO PRN (20:50)
[2022-03-26] MEDS: ATORVASTATIN 40 MG TAB PO SCH (20:50)
[2022-03-26] MEDS: ENOXAPARIN 40 MG/0.4 ML SQ SCH (20:51)
[2022-03-26] MEDS ORDERED: METOPROLOL TAR 25 MG TAB PO SCH (21:00)
[2022-03-27 04:03] LABS: Magnesium 1.9 mg/dL (1.6-2.4)
[2022-03-27] MEDS: METOPROLOL TAR 25 MG TAB PO SCH ×2 (05:09→17:11)
[2022-03-27] MEDS: BENZONATATE 100 MG CAP PO SCH ×4 (05:09→22:47)
--- NOTE | 2022-03-27 06:47 | PN ---
Date of Progress Note: 03/26/2022 Subjective: The patient was seen this morning for followup. She was lying in bed, not in distress. No new complaints or problems reported by her. Objective: Vital Signs: Reviewed. HEENT: Unremarkable. Lungs: Bilateral good equal air entry. Clear to auscultation except basal rales. Heart: Sounds normal. Abdomen: Soft. Bowel sounds normal. No guarding, rigidity, tenderness, distention. Extremities: No leg edema. Laboratory Data: Sodium 134, potassium 4.1, chloride 94, bicarb 36, BUN 22, creatinine 0.80, glucose 252, magnesium 2.1. Impression: 1.Congestive heart failure, chronic, diastolic, with acute exacerbation. 2.COVID-19 infection. 3.Diabetes mellitus, uncontrolled. 4.Hypertension. Plan: We will go ahead and continue current medication, continue Lasix, but increase dose to 40 mg I V 2 times a day. Monitor electrolytes, renal function. Continue to follow with Dr. Bran and he has started the patient on spironolactone and dexamethasone and antiviral therapy for COVID-19 infect ion. We will continue insulin management order. We started her on long-acting insulin 20 units subc utaneous injection daily and it is Semglee and we will also continue sliding scale insulin. I will see her tomorrow for followup. We will repeat chest x-ray to . JESSICA/MODL Voice ID: [id number] Report ID: [id number]
[2022-03-27] MEDS: LOSARTAN POTASSIUM 50 MG TABLET PO SCH (08:09)
[2022-03-27] MEDS: dexAMETHasone 4 MG TAB PO SCH (08:09)
[2022-03-27] MEDS: CLOPIDOGREL 75 MG TABLET PO SCH (08:09)
[2022-03-27] MEDS: FUROSEMIDE 40 MG/4 ML VIAL IV SCH ×2 (08:09→16:14)
[2022-03-27] MEDS: ASPIRIN 81 MG CHEWABLE TABLET PO SCH (08:09)
[2022-03-27] MEDS: INSULIN -REGULAR HUMAN 50 UNIT/0.5 ML ML SQ SCH ×4 (08:10→22:47)
[2022-03-27] MEDS: INSULIN GLARGINE 100 UNIT/ML SQ SCH (08:10)
[2022-03-27] MEDS: NIRMATRELVIR/RITONAVIR TABLET PO SCH ×2 (09:17→22:49)
--- NOTE | 2022-03-27 12:41 | RAD REPORT ---
EXAM DESCRIPTION: XR Chest, 1 View CLINICAL HISTORY: The patient is 76 years old and is Female; CHF, COVID TECHNIQUE: Single view of the chest. COMPARISON: No relevant prior studies available. FINDINGS: Lungs: Linear atelectasis right midlung. No pulmonary vascular congestion or consolidation. Pleural space: Unremarkable. No pneumothorax. Heart: Cardiomegaly. Previous cardiac valve replacement. Mediastinum: Unremarkable. Bones/joints: Sternal closure wires. Moderate degenerative changes in the right shoulder. No acu te rib fracture. Tubes, lines and devices: Left-sided cardiac pacer. Upper abdomen: Unremarkable as visualized. No free air in the visualized upper abdomen. IMPRESSION: 1. Linear atelectasis right midlung. 2. Cardiomegaly. Left-sided cardiac pacer. Electronically signed by: Aneta Alejandro MD 03/27/2022 5:47 AM SHIPPING RECEIVING CLERK Due to temporary technical issues with the PACS/Fluency reporting system, reports are being signed by the in house radiologists without review as a courtesy to insure prompt reporting. The interpreting radiologist is fully responsible for the content of the report.
--- NOTE | 2022-03-27 12:45 | P.PN ---
Subjective Date of Service: 03/27/22 Chief Complaint: Shortness of breath and cough Subjective: Improving (Improving lower extremity edema has declined blood sugars elevate) Review of Systems General: Weakness Respiratory: Shortness of Breath Physical Examination - Vital Signs Temperature: 97.4 F Blood Pressure: 159/96 Pulse: 76 Respirations: 18 Pulse Ox (%): 96 - Physical Exam General: Alert, In no apparent distress, Oriented x3 Respiratory: Clear to auscultation bilaterally, Diminished Cardiovascular: Regular rate/rhythm, Edema Assessment And Plan - Current Problems (Diagnosis) (1) SARS-CoV-2 positive Current Visit: Yes Status: Acute Plan: Patient is improving chest x-ray shows cardiomegaly blood pressure elevated minimal oxygen blood sugars elevated reduce the dose of Decadron patient is on Paxlovid will qualify for home O2 stable for discharge patient to finish the course of her Paxlovid Discharge Plan: Home Plan to discharge in: 24 Hours
--- NOTE | 2022-03-27 19:33 | PN ---
Date of Progress Note: 03/27/2022 Subjective: The patient was seen this morning for followup. She was lying in bed, not in any distre ss. No new complaints or problems reported. Vital signs per last [address] ill remains on oxygen 3 L/minute nasal cannula. Physical Examination: HEENT: Examination unremarkable. Lungs: Clear to auscultation. Heart: Sounds normal. Abdomen: Soft. Bowel sounds normal. No guarding, rigidity, tenderness, or distention. Extremities: No leg edema. Laboratory Data: Sodium 135, potassium 4, chloride 94, bicarb 37, BUN 26, creatinine 0.7, glucose 30 1, magnesium 1.9. Impression: 1.COVID-19 infection. 2.Congestive heart failure, chronic, diastolic, with acute exacerbation. 3.Hypertension. 4.Type 2 diabetes mellitus. Plan: We will go ahead and continue current antihypertensive medication. The patient's blood pressu re still remains elevated, so we will go ahead and add losartan 50 mg p.o. daily. Discontinue spiron olactone. Continue current IV Lasix 40 mg IV q.12 hours. Monitor intake, output, and daily weight a nd electrolytes and renal function will be monitored with blood work tomorrow morning. The patient w ill need to go home with home oxygen and I have requested Social Service to make arrangements for carol e oxygen. Possible discharge to go home over the weekend. Continue current insulin sliding scale an d the patient received 20 units of long-acting insulin Semglee yesterday morning and today we will increase that to 30 units in the morning and add 10 units of long-acting insulin at bedtime. JESSICA/MODL Voice ID: [id number] Report ID: [id number]
[2022-03-27] MEDS ORDERED: INSULIN GLARGINE 100 UNIT/ML SQ SCH (21:00)
[2022-03-27] MEDS: ATORVASTATIN 40 MG TAB PO SCH (22:47)
[2022-03-27] MEDS: cloNIDine HCL 0.1 MG TAB PO PRN (22:47)
[2022-03-27] MEDS: ENOXAPARIN 40 MG/0.4 ML SQ SCH (22:47)
[2022-03-28] MEDS: GUAIFENESIN/DM 5 ML UCUP PO PRN (01:00)
[2022-03-28] MEDS: cloNIDine HCL 0.1 MG TAB PO PRN ×2 (04:16→12:38)
[2022-03-28] MEDS: BENZONATATE 100 MG CAP PO SCH ×4 (04:16→21:58)
[2022-03-28] MEDS: METOPROLOL TAR 25 MG TAB PO SCH ×2 (05:54→17:30)
[2022-03-28] MEDS: INSULIN -REGULAR HUMAN 50 UNIT/0.5 ML ML SQ SCH ×4 (07:30→21:59)
[2022-03-28] MEDS: FUROSEMIDE 40 MG/4 ML VIAL IV SCH ×2 (08:41→16:35)
[2022-03-28] MEDS: ASPIRIN 81 MG CHEWABLE TABLET PO SCH (08:41)
[2022-03-28] MEDS: INSULIN GLARGINE 100 UNIT/ML SQ SCH (08:41)
[2022-03-28] MEDS: CLOPIDOGREL 75 MG TABLET PO SCH (08:41)
[2022-03-28] MEDS: NIRMATRELVIR/RITONAVIR TABLET PO SCH ×2 (08:41→21:59)
[2022-03-28] MEDS: LOSARTAN POTASSIUM 50 MG TABLET PO SCH (08:42)
[2022-03-28] MEDS ORDERED: dexAMETHasone 4 MG TAB PO SCH (09:00)
[2022-03-28] MEDS ORDERED: AMLODIPINE 5 MG TAB PO ONE (09:35)
--- NOTE | 2022-03-28 11:28 | P.PN ---
Subjective Date of Service: 03/28/22 Chief Complaint: Shortness of breath and cough Subjective: Improving (Patient is doing much better blood sugars are high evidence of breath is improved) Review of Systems General: Weakness Respiratory: Shortness of Breath Physical Examination - Vital Signs Temperature: 97.0 F Blood Pressure: 146/80 Pulse: 70 Respirations: 18 Pulse Ox (%): 99 - Physical Exam General: Alert, Oriented x3 Respiratory: Clear to auscultation bilaterally, Diminished Cardiovascular: No edema, Regular rate/rhythm, Edema Assessment And Plan - Current Problems (Diagnosis) (1) SARS-CoV-2 positive Current Visit: Yes Status: Acute Plan: Anderson is doing much better has improved will DC steroid hyperglycemia kidney injury complete the course of the Paxlovid blood pressure is much improved she feels better oxygenation satisfactory check room air pulse ox
--- NOTE | 2022-03-28 16:27 | PN ---
Date of Progress Note: 03/28/2022 Subjective: The patient was seen this morning for followup. She was sitting at bedside in the chair . Denies any complaints. Overall feels better compared to before. Vital signs reviewed in last 24 hours and her blood pressure was much better this morning than yesterday. Fingerstick blood sugar re adings reviewed. Physical Examination: HEENT: Examination unremarkable. Lungs: Clear to auscultation. Heart: Sounds normal. Abdomen: Soft. Bowel sounds normal. No guarding, rigidity, tenderness, distention. Extremities: No leg edema. Impression: 1.COVID-19 infection. 2.Congestive heart failure, chronic, diastolic, with acute exacerbation. 3.Hypertension. 4.Diabetes mellitus. 5.Chronic respiratory failure with hypoxia. Plan: We will go ahead and continue current antiviral and dexamethasone for COVID-19 infection. We will continue current Lasix. Intake/output records reviewed and we will continue to monitor that. [place] weight will be monitored. Her weight today is 239 pounds. Continue current Lasix and plan is t o discharge her to go home tomorrow. We will add amlodipine 5 mg daily starting today for blood pres sure control. Continue losartan and metoprolol per order and p.r.n. clonidine per order. Continue c urrent diabetes management. Details and plan of treatment discussed with the patient. Her oxygen for home use will be delivered today. JESSICA/MODL Voice ID: [id number] Report ID: [id number]
[2022-03-28] MEDS ORDERED: INSULIN GLARGINE 100 UNIT/ML SQ SCH (21:00)
[2022-03-28] MEDS: ENOXAPARIN 40 MG/0.4 ML SQ SCH (21:58)
[2022-03-28] MEDS: ATORVASTATIN 40 MG TAB PO SCH (21:58)
[2022-03-29] MEDS: cloNIDine HCL 0.1 MG TAB PO PRN (01:32)
[2022-03-29] MEDS: METOPROLOL TAR 25 MG TAB PO SCH (05:20)
[2022-03-29] MEDS: BENZONATATE 100 MG CAP PO SCH ×2 (05:20→08:36)
[2022-03-29] MEDS: INSULIN -REGULAR HUMAN 50 UNIT/0.5 ML ML SQ SCH (07:30)
[2022-03-29] MEDS: ASPIRIN 81 MG CHEWABLE TABLET PO SCH (08:35)
[2022-03-29] MEDS: FUROSEMIDE 40 MG/4 ML VIAL IV SCH (08:36)
[2022-03-29] MEDS: NIRMATRELVIR/RITONAVIR TABLET PO SCH (08:36)
[2022-03-29] MEDS: LOSARTAN POTASSIUM 50 MG TABLET PO SCH (08:36)
[2022-03-29] MEDS: CLOPIDOGREL 75 MG TABLET PO SCH (08:36)
[2022-03-29] MEDS: INSULIN GLARGINE 100 UNIT/ML SQ SCH (08:37)
[2022-03-29] MEDS ORDERED: AMLODIPINE 5 MG TAB PO SCH (09:00)
[2022-03-29 09:27] VITALS: O2SAT 97
[2022-03-29 09:49] VITALS: BP 158/73; TEMP 97.6
--- NOTE | 2022-03-29 13:26 | DS ---
Date of Discharge: 03/29/2022 The patient was seen this morning for followup. She was lying in bed, not in distress. Objective: Vital Signs: Reviewed. HEENT: Unremarkable. Lungs: Clear to auscultation. Heart: Sounds normal. Abdomen: Soft. Bowel sounds normal. No guarding, rigidity, tenderness, distention. Extremities: No leg edema. Laboratory Data: Upon admission; white count 5.5, hemoglobin 12.6, platelets 171. Day after admissi on; white count 4.1, hemoglobin 12.8, platelets 150. Upon admission; sodium 135, potassium 3, chlori de 95, bicarb 38, BUN 30, creatinine 0.94, glucose 230. Troponin 9.3. ProBNP 654. Lowest potassium was 2.9 on 03/25/2022 and last chemistry day before yesterday; sodium 135, potassium 4, chloride 94, bicarb 37, BUN 26, creatinine 0.77, glucose 301, magnesium . Discharge Medications And Instructions: Continue all prior home medications except following changes . 1.Metoprolol 25 mg, take 1 tablet by mouth 2 times a day. 2.Lisinopril 5 mg, take 1 tablet by mouth 2 times a day. 3.Start amlodipine 5 mg 1 tablet by mouth daily and the patient believes that she has this prescript ion at home as she was taking it up until 2 to 3 months ago and if she needs a refill, she will conta ct office. 4.Check fingerstick blood sugar readings before breakfast, lunch, and dinner and take Humalog insuli n subcutaneous for sugar less than 100, 0 units; for sugar 101 to 150, 4 units; for sugar 151 to 200, 6 units; for sugar 201 or higher, 8 units. 5.Follow up at my office week after and call office for appointment. 6.Use oxygen 2 L/minute nasal cannula oxygen. Hospital Course: This is a 76-year-old female patient, who was admitted to the hospital with complai nts of shortness of breath. Please see dictated H and P for more information. After the patient was evaluated in the emergency room, she was admitted to the hospital and she was admitted to the hospit al with acute exacerbation of congestive heart failure problem. The patient was also diagnosed as pres[place] ving COVID-19 infection when she came into ER. Dr. Bran from Pulmonary and regulatory agency director were con sulted. The patient received IV Lasix. Her weight was monitored on daily basis. Upon admission, he r weight was 241 pounds. Her last weight was 237 pounds. Overall, the patient's condition has impro laury. For COVID-19 infection, she received dexamethasone and antiviral therapy per Dr. Bran and f or congestive heart failure, we gave her IV Lasix, monitored intake and output, daily weight, and her potassium was low which was corrected. Overall, her condition has improved. The patient continues to require oxygen replacement therapy, so Social Service was consulted to make arrangements for home oxygen and the patient has received her portable home oxygen, so today she will be discharged to [facility] in stable condition with above-mentioned medications and instructions. During this hospitalizati on, her blood pressure was high and we had to make some adjustment on medications. Final Diagnoses: 1.COVID-19 infection. 2.Congestive heart failure, chronic, diastolic, with acute exacerbation. 3.Hypokalemia. 4.Hypertension. 5.Type 2 diabetes mellitus. 6.Chronic atrial fibrillation. 7.Hyperlipidemia. 8.Crohn disease. 9.Diverticulosis. 10.Hypomagnesemia. 11.Osteoarthritis, multiple sites. JESSICA/MODL Voice ID: [id number] Report ID: [id number]
== END 2022-03-29 11:48 | disposition home or self-care (01) | DRG 177 ==
LOC: ER 11:31 → ERHOLD 14:59 → 4TH 20:31
PROVIDERS: ADMIT Internal Medicine; ATTEND Internal Medicine
DX: U07.1 COVID-19 (principal); I50.33 Acute on chronic diastolic (congestive) heart failure; I48.19 Other persistent atrial fibrillation; K50.90 Crohn's disease, unspecified, without complications; J96.11 Chronic respiratory failure with hypoxia; D61.818 Other pancytopenia; I11.0 Hypertensive heart disease with heart failure; E87.6 Hypokalemia; E11.65 Type 2 diabetes mellitus with hyperglycemia; E78.5 Hyperlipidemia, unspecified; E83.42 Hypomagnesemia; K57.90 Diverticulosis of intestine, part unspecified, without perforation or abscess without bleeding; I27.20 Pulmonary hypertension, unspecified; I25.10 Atherosclerotic heart disease of native coronary artery without angina pectoris; M15.9 Polyosteoarthritis, unspecified; I89.0 Lymphedema, not elsewhere classified; E03.9 Hypothyroidism, unspecified; G47.00 Insomnia, unspecified; Z95.0 Presence of cardiac pacemaker; Z95.1 Presence of aortocoronary bypass graft; Z95.2 Presence of prosthetic heart valve; Z87.891 Personal history of nicotine dependence; Z79.01 Long term (current) use of anticoagulants; Z79.82 Long term (current) use of aspirin; Z79.84 Long term (current) use of oral hypoglycemic drugs; Z79.4 Long term (current) use of insulin; Z79.899 Other long term (current) drug therapy; Z88.3 Allergy status to other anti-infective agents; Z88.5 Allergy status to narcotic agent; Z90.710 Acquired absence of both cervix and uterus; Z90.49 Acquired absence of other specified parts of digestive tract; Z85.828 Personal history of other malignant neoplasm of skin; Z82.49 Family history of ischemic heart disease and other diseases of the circulatory system; Z80.0 Family history of malignant neoplasm of digestive organs; Z80.3 Family history of malignant neoplasm of breast
CPT/HCPCS: 36415; 71045; 80048; 81003; 82947; 83735; 83880; 84132; 84484; 85025; 85610; 87811; 93005; 96374; 99285; J1650; J1815; J1940; J3475; J3480; J7040; J8540

== ENCOUNTER 2022-05-25 13:52 | Inpatient (IN) | payer OTHER ==
--- OUTSIDE RECORDS SUMMARY | 2022-05-25 14:06 | XMS REPORT | Continuity of Care Document ---
:1945 Author Organization [facility] t Address [address] [facility] [address] [place] [address] Care Team Providers Name Role Phone Abdiaziz [...] [facility] 0-26 [place] 00:00: d 00 [facility] ciproflo DA Active [facility] JOINT PAIN 2021-03 [facility] xacin 0-26 [place] 00:00: d 00 [facility] morphine DA Active SV RASH, [facility] SWELL[facility] 9-30 [place] 00:00: d 00 [facility] ciproflo DA Active [facility] JOINT PAIN 2021- [facility] xacin 9-30 [place] 00:00: d 00 [facility] Medications This patient has no known medications. Procedures Procedure Date / Time Performed Performing Clinician Terese regalado [id number] 2022-01-07 00:00:00 GIBJE.01 [facility] [id number] 2022-01-07 00:00:00 GIBJE.01 [facility] [id number] 2022-01-07 00:00:00 GIBJE.01 [facility] [id number] 2022-01-07 00:00:00 GIBJE.01 [facility] [id number] 2021-12-26 00:00:00 ALKNE [facility] [id number] 2021-12-26 00:00:00 ALKNE [facility] [id number] 2021-12-24 00:00:00 HYDSH [facility] [id number] 2021-12-24 00:00:00 HYDSH [facility] [id number] 2021-12-24 00:00:00 HYDSH [facility] [id number] 2021-12-19 00:00:00 MOUAN [facility] [id number] 2021-12-19 00:00:00 CHAAB.01 [facility] [id number] 2021-12-19 00:00:00 CHAAB.01 [facility] [id number] 2021-12-19 00:00:00 CHAAB.01 [facility] [id number] 2021-12-19 00:00:00 CHAAB.01 [facility] [id number] 2021-12-19 00:00:00 CHAAB.01 [facility] [id number] 2021-12-19 00:00:00 CHAAB.01 [facility] [id number] 2021-12-19 00:00:00 ALKNE [facility] [id number] 2021-12-19 00:00:00 ALKNE [facility] [id number] 2021-12-19 00:00:00 ALKNE [facility] [id number] 2021-12-19 00:00:00 ALKNE [facility] [id number] 2021-12-19 00:00:00 ALKNE [facility] [id number] 2021-12-19 00:00:00 ALKNE [facility] [id number] 2021-12-19 00:00:00 ALKNE [facility] [id number] 2021-12-19 00:00:00 FARHAN LEWIS [facility] [id number] 2021-12-17 00:00:00 CLARKE LEWIS [facility] [id number] 2021-12-17 00:00:00 CLARKE [facility] Encounters Start End Encounter Admission Attending Care Care Encounter Source Date/Time Date/Time Type Type Clinicians Facility Department ID 2021-09-04 Outpatient Fuchs, STLMLC STLMLC [id number] Common 14:26:02 Abdiaziz [facility] 2021-06-25 Outpatient STLMLC STLMLC [id number] Common 10:03:03 [facility] 2021-06-18 Outpatient STLMLC STLMLC [id number] Common 08:37:02 [id number] [facility] 2021-06-13 Outpatient STLMLC STLMLC [id number] Common 10:29:05 [facility] 2022-01-07 2022-01-21 Inpatient SHUKRI Landry HCACL REHA [id number] [facility] 19:57:00 23:59:00 Jesus 63 [facility] 2021-12-17 2022-01-[address] INTE [id number] [facility] 12:00:00 19:20:00 Jeffry 32 [facility] 2021-12-12 2021-12-12 Outpatient JOSHUA StCL ZZZB [id number] [facility] 08:00:00 09:00:00 Jeffry 24 [facility] Results Test Description Test Time Test Comments Results Result Comments Source GLUCOSE BEDSIDE 2022-01-22 02:18:00 Test Item Value Reference Range Interpretation Comme nts GLUCOSE BEDSIDE (test code = 150 MG/DL 70-110 H Performed by certified 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 [facility]) [facility] CBC W/AUTO [id number] 08:16:00 Test Item Value Reference Range Interpretation [...] (test code NO = MDIFF) BASIC METABOLIC [id number] 07:50:00 Test Item Value Reference Range Interpretation [...] the recommended for oscar for GFRby the [facility] for Adults.The GFR will not calculate if th e sex is unknown or if thepatient's ag e is <18 years. CREATININE (test 0.9 mg/dL 0.6-1.3 N code = CREAT) CALCIUM (test code = 9.6 mg/dL 8.0-10.5 N CA) [id number] 07:50:00 Test Item Value Reference Range Interpretation Comments MAGNESIUM (test code = MAG) 2.05 mg/dL 1.80-2.40 N GLUCOSE [id number] 06:41:00 Test Item Value Reference Range Interpretation Comments GLUCOSE BEDSIDE (test 99 MG/DL 70-110 N Perfor med by certified code = GLUBED) 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 [facility] GLUCOSE [id number] 20:16:00 Test Item Value Reference Range Interpretation Comments GLUCOSE BEDSIDE (test 196 MG/DL 70-110 H Perfor med by certified code = GLUBED) 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 [facility] GLUCOSE [id number] 16:27:00 Test Item Value Reference Range Interpretation Comments GLUCOSE BEDSIDE (test 207 MG/DL 70-110 H Perfor med by certified code = GLUBED) 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 [facility] GLUCOSE [id number] 11:35:00 Test Item Value Reference Range Interpretation Comments GLUCOSE BEDSIDE (test 161 MG/DL 70-110 H Perfor med by certified code = GLUBED) 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 [facility] GLUCOSE [id number] 06:01:00 Test Item Value Reference Range Interpretation Comments GLUCOSE BEDSIDE (test 112 MG/DL 70-110 H Perfor med by certified code = GLUBED) 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 [facility] GLUCOSE [id number] 19:38:00 Test Item Value Reference Range Interpretation Comments GLUCOSE BEDSIDE (test 197 MG/DL 70-110 H Perfor med by certified code = GLUBED) 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 [facility] GLUCOSE [id number] 16:10:00 Test Item Value Reference Range Interpretation Comments GLUCOSE BEDSIDE (test 166 MG/DL 70-110 H Perfor med by certified code = GLUBED) 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 [facility] GLUCOSE [id number] 11:37:00 Test Item Value Reference Range Interpretation Comments GLUCOSE BEDSIDE (test 136 MG/DL 70-110 H Perfor med by certified code = GLUBED) 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 [facility] CBC W/AUTO [id number] 08:13:00 Test Item Value Reference Range Interpretation [...] (test code NO = MDIFF) BASIC METABOLIC [id number] 07:37:00 Test Item Value Reference Range Interpretation [...] the recommended for oscar for GFRby the [facility] for Adults.The GFR will not calculate if th e sex is unknown or if thepatient's ag e is <18 years. CREATININE (test 0.9 mg/dL 0.6-1.3 N code = CREAT) CALCIUM (test code = 9.3 mg/dL 8.0-10.5 N CA) [id number] 07:37:00 Test Item Value Reference Range Interpretation Comments MAGNESIUM (test code = MAG) 1.90 mg/dL 1.80-2.40 N B-TYPE NATRIURETIC [id number] 07:14:00 Test Item Value Reference Range Interpretation Comments B-TYPE NATRIURETIC PEPTIDE (test 241.0 PG/ML 0-100 H code = BNP) GLUCOSE [id number] 06:39:00 Test Item Value Reference Range Interpretation Comments GLUCOSE BEDSIDE (test 93 MG/DL 70-110 N Perfor med by certified code = GLUBED) 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 [facility] GLUCOSE [id number] 01:49:00 Test Item Value Reference Range Interpretation Comments GLUCOSE BEDSIDE (test 77 MG/DL 70-110 N Perfor med by certified code = GLUBED) 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 [facility] GLUCOSE [id number] 01:20:00 Test Item Value Reference Range Interpretation Comments GLUCOSE BEDSIDE (test 56 MG/DL 70-110 L Perfor med by certified code = GLUBED) 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 [facility] GLUCOSE [id number] 20:14:00 Test Item Value Reference Range Interpretation Comments GLUCOSE BEDSIDE (test 192 MG/DL 70-110 H Perfor med by certified code = GLUBED) 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 [facility] GLUCOSE [id number] 16:26:00 Test Item Value Reference Range Interpretation Comments GLUCOSE BEDSIDE (test 162 MG/DL 70-110 H Perfor med by certified code = GLUBED) 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 [facility] GLUCOSE [id number] 12:27:00 Test Item Value Reference Range Interpretation Comments GLUCOSE BEDSIDE (test 128 MG/DL 70-110 H Perfor med by certified code = GLUBED) 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 [facility] URINALYSIS [id number] 11:00:00 Test Item Value Reference Range Interpretation [...] MUCU) TRACE /LPF NONE SEEN BASIC METABOLIC [id number] 06:05:00 Test Item Value Reference Range Interpretation [...] the recommended for oscar for GFRby the [facility] for Adults.The GFR will not calculate if th e sex is unknown or if thepatient's ag e is <18 years. CREATININE (test 0.8 mg/dL 0.6-1.3 N code = CREAT) CALCIUM (test code = 9.3 mg/dL 8.0-10.5 N CA) CALCIUM [id number] 06:05:00 Test Item Value Reference Range Interpretation Comments CALCIUM IONIZED (test code = TYREE) 1.15 MMOL/L 1.09-1.30 N GLUCOSE [id number] 05:24:00 Test Item Value Reference Range Interpretation Comments GLUCOSE BEDSIDE (test 78 MG/DL 70-110 N Perfor med by certified code = GLUBED) 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 [facility] GLUCOSE [id number] 20:24:00 Test Item Value Reference Range Interpretation Comments GLUCOSE BEDSIDE (test 142 MG/DL 70-110 H Perfor med by certified code = GLUBED) 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 [facility] GLUCOSE [id number] 17:17:00 Test Item Value Reference Range Interpretation Comments GLUCOSE BEDSIDE (test 157 MG/DL 70-110 H Perfor med by certified code = GLUBED) 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 [facility] GLUCOSE [id number] 12:04:00 Test Item Value Reference Range Interpretation Comments GLUCOSE BEDSIDE (test 132 MG/DL 70-110 H Perfor med by certified code = GLUBED) 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 [facility] CBC W/AUTO [id number] 10:36:00 Test Item Value Reference Range Interpretation [...] REQUIRED (test code NO = MDIFF) GLUCOSE [id number] 06:21:00 Test Item Value Reference Range Interpretation Comments GLUCOSE BEDSIDE (test 119 MG/DL 70-110 H Perfor med by certified code = GLUBED) 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 [facility] - XR CHEST 2 [id number] 00:00:00 [facility] 1945 Sex: F FAX:Suki Fuchs MD [place]: St: ADM FAX: Abdiaziz Christiansen MD [phone] FAX: Jesus Flores [phone] Name: SAÚL GILES [facility] : 1945 Age/S: 76/F [address] [place] [address] Bl Unit #: [id number] Loc: [address] [address] Phys: Suki Fuchs MD Acct: [id number] Dis Date: Status: ADM IN PHONE #: [phone] Exam Date: 01/17/2022 1445 FAX #: [phone] Reason: FOR WORSENING BREATHING/CONGESTION EXAMS: CPT CODE: [id number] XR CHEST 2 V [id number] PROCEDURE INFORMATION: Exam: XR Chest Exam date and time: 01/17/2022 2:22 PM Age: 76 years old Clinical indication: Other: For worsening breathing/congestion TECHNIQUE: Imaging protocol: Radiologic exam of the chest. Views: 2 views. PA and Lateral COMPARISON:CR XR CHEST 1V 01/14/2022 8:43 AM FINDINGS: [...] [place] Technologist: RT Cain(Marla) Trnscrd Date/Time/By: 01/17/2022 (150) : By: [email or web address] [facility] Print D/T: S: 01/17/2022 (4383) PAGE 1 Signed ReportGLUCOSE [id number] 21:08:00 Test Item Value Reference Range Interpretation Comments GLUCOSE BEDSIDE (test 200 MG/DL 70-110 H Perfor med by certified code = GLUBED) 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 [facility] GLUCOSE [id number] 16:14:00 Test Item Value Reference Range Interpretation Comments GLUCOSE BEDSIDE (test 127 MG/DL 70-110 H Perfor med by certified code = GLUBED) 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 [facility] GLUCOSE [id number] 11:59:00 Test Item Value Reference Range Interpretation Comments GLUCOSE BEDSIDE (test 117 MG/DL 70-110 H Perfor med by certified code = GLUBED) 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 [facility] B-TYPE NATRIURETIC [id number] 10:47:00 Test Item Value Reference Range Interpretation Comments B-TYPE NATRIURETIC PEPTIDE (test 258.0 PG/ML 0-100 H code = BNP) BASIC METABOLIC [id number] 07:58:00 Test Item Value Reference Range Interpretation [...] = 9.5 mg/dL 8.0-10.5 N CA) CALCIUM [id number] 07:58:00 Test Item Value Reference Range Interpretation Comments CALCIUM IONIZED (test code = TYREE) 1.16 MMOL/L 1.09-1.30 N GLUCOSE [id number] 06:17:00 Test Item Value Reference Range Interpretation Comments GLUCOSE BEDSIDE (test 98 MG/DL 70-110 N Perfor med by certified code = GLUBED) 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 [facility] GLUCOSE [id number] 21:19:00 Test Item Value Reference Range Interpretation Comments GLUCOSE BEDSIDE (test 132 MG/DL 70-110 H Perfor med by certified code = GLUBED) 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 [facility] GLUCOSE [id number] 15:45:00 Test Item Value Reference Range Interpretation Comments GLUCOSE BEDSIDE (test 159 MG/DL 70-110 H Perfor med by certified code = GLUBED) 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 [facility] GLUCOSE [id number] 11:16:00 Test Item Value Reference Range Interpretation Comments GLUCOSE BEDSIDE (test 154 MG/DL 70-110 H Perfor med by certified code = GLUBED) 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 [facility] GLUCOSE [id number] 06:02:00 Test Item Value Reference Range Interpretation Comments GLUCOSE BEDSIDE (test 113 MG/DL 70-110 H Perfor med by certified code = GLUBED) 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 [facility] GLUCOSE [id number] 05:18:00 Test Item Value Reference Range Interpretation Comments GLUCOSE BEDSIDE (test 57 MG/DL 70-110 L Perfor med by certified code = GLUBED) 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 [facility] GLUCOSE [id number] 19:38:00 Test Item Value Reference Range Interpretation Comments GLUCOSE BEDSIDE (test 186 MG/DL 70-110 H Perfor med by certified code = GLUBED) 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 [facility] GLUCOSE [id number] 16:05:00 Test Item Value Reference Range Interpretation Comments GLUCOSE BEDSIDE (test 183 MG/DL 70-110 H Perfor med by certified code = GLUBED) 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 [facility] GLUCOSE [id number] 11:25:00 Test Item Value Reference Range Interpretation Comments GLUCOSE BEDSIDE (test 114 MG/DL 70-110 H Perfor med by certified code = GLUBED) 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 [facility] BASIC METABOLIC [id number] 08:05:00 Test Item Value Reference Range Interpretation [...] code = 9.2 mg/dL 8.0-10.5 N CA) [id number] 08:05:00 Test Item Value Reference Range Interpretation Comments MAGNESIUM (test code = MAG) 1.83 mg/dL 1.80-2.40 N GLUCOSE [id number] 05:00:00 Test Item Value Reference Range Interpretation Comments GLUCOSE BEDSIDE (test 83 MG/DL 70-110 [facility] med by certified code = GLUBED) 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 [facility] - XR CHEST 1 [id number] 00:00:00 [facility] 1945 Sex: F FAX:Abdiaziz Christiansen MD [phone] [place]: St: ADM FAX: Jesus Flores [phone] FAX: Isabella Clemens [phone] Name: SAÚL GILES [facility] : 1945 Age/S: 76/F [address] [place] [address] Unit #: [id number] Loc: [address] [place] [address] Phys: Isabella Clemens AGACNP Acct: [id number] Dis Date: Status: ADM IN PHONE #: [phone] Exam Date: 01/14/2022905 FAX #: [phone] Reason: SOB, CHF EXAMS: CPT CODE: [id number] XR CHEST 1 V [id number] PROCEDURE INFORMATION: Exam: XR Chest Exam date and time: 01/14/2022 8:43 AM Age: 76 years old Clinical indication: Shortness of breath; Additional info: SOB, chf TECHNIQUE: Imaging protocol: Radiologic exam of the chest. Views: 1 view. COMPARISON: CR XR CHEST 1V 01/09/2022 9:40 AM FINDINGS: Lungs: There is minimal vascular congestion with subsegmental atelectasis in the right midlung zone and opacity at the left lung base. Pleural spaces: Unremarkable. No pleural effusion. No pneumothorax. Heart/Mediastinum: The cardiac silhouette is enlarged. 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 Bones/ joints: Unremarkable. IMPRESSION: Minimal vascular congestion with subsegmental atelectasis in the right midlung zone and opacity at the left lung base. at 1040 Reported and signed by: Maurice Reddy M.D. CC: Abdiaziz Fuchs MD; Jesus Landry; Isabella OKEEFE [facility] Technologist: RT Jeison(Marla) Trnscrd Date/Time/By: 01/14/2022 (1040) : By: ShanonO Orig Print D/T: S: 01/14/2022 (1041) PAGE 1 Signed ReportGLUCOSE [id number] 19:47:00 Test Item Value Reference Range Interpretation Comments GLUCOSE BEDSIDE (test 193 MG/DL 70-110 H Perfor med by certified code = GLUBED) 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 [facility] GLUCOSE [id number] 16:47:00 Test Item Value Reference Range Interpretation Comments GLUCOSE BEDSIDE (test 146 MG/DL 70-110 H Perfor med by certified code = GLUBED) 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 [facility] GLUCOSE [id number] 11:18:00 Test Item Value Reference Range Interpretation Comments GLUCOSE BEDSIDE (test 164 MG/DL 70-110 H Perfor med by certified code = GLUBED) 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 [facility] GLUCOSE [id number] 05:19:00 Test Item Value Reference Range Interpretation Comments GLUCOSE BEDSIDE (test 143 MG/DL 70-110 H Perfor med by certified code = GLUBED) 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 [facility] GLUCOSE [id number] 20:33:00 Test Item Value Reference Range Interpretation Comments GLUCOSE BEDSIDE (test 159 MG/DL 70-110 H Perfor med by certified code = GLUBED) 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 [facility] GLUCOSE [id number] 16:47:00 Test Item Value Reference Range Interpretation Comments GLUCOSE BEDSIDE (test 233 MG/DL 70-110 H Perfor med by certified code = GLUBED) 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 [facility] GLUCOSE [id number] 11:35:00 Test Item Value Reference Range Interpretation Comments GLUCOSE BEDSIDE (test 164 MG/DL 70-110 H Perfor med by certified code = GLUBED) 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 [facility] CBC W/AUTO [id number] 10:51:00 Test Item Value Reference Range Interpretation [...] REQUIRED (test code NO = MDIFF) RBC [id number] 10:51:00 Test Item Value Reference Range Interpretation Comments ANISOCYTOSIS (test code = ANISO) 2+ POIKILOCYTOSIS (test code = POIK) 1+ MACROCYTOSIS (test code = MACR) 1+ SCHISTOCYTES (test code = FRANKIE) 1+ B-TYPE NATRIURETIC [id number] 09:36:00 Test Item Value Reference Range Interpretation Comments B-TYPE NATRIURETIC PEPTIDE (test 180.0 PG/ML 0-100 H code = BNP) BASIC METABOLIC [id number] 07:41:00 Test Item Value Reference Range Interpretation [...] code = 9.0 mg/dL 8.0-10.5 N CA) [id number] 07:41:00 Test Item Value Reference Range Interpretation Comments ALBUMIN (test code = ALB) 3.60 g/dL 3.4-5.0 N [id number] 07:41:00 Test Item Value Reference Range Interpretation Comments MAGNESIUM (test code = MAG) 1.77 mg/dL 1.80-2.40 L [id number] 07:41:00 Test Item Value Reference Range Interpretation Comments PREALBUMIN (test code = PREALB) 13.8 mg/dL 16.0-40.0 L GLUCOSE [id number] 06:00:00 Test Item Value Reference Range Interpretation Comments GLUCOSE BEDSIDE (test 95 MG/DL 70-110 N Perfor med by certified code = GLUBED) 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 [facility] GLUCOSE [id number] 06:00:00 Test Item Value Reference Range Interpretation Comments GLUCOSE BEDSIDE (test 100 MG/DL 70-110 N Perfor med by certified code = GLUBED) 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 [facility] GLUCOSE [id number] 19:49:00 Test Item Value Reference Range Interpretation Comments GLUCOSE BEDSIDE (test 267 MG/DL 70-110 H Perfor med by certified code = GLUBED) 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 [facility] GLUCOSE [id number] 17:10:00 Test Item Value Reference Range Interpretation Comments GLUCOSE BEDSIDE (test 286 MG/DL 70-110 H Perfor med by certified code = GLUBED) 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 [facility] GLUCOSE [id number] 11:42:00 Test Item Value Reference Range Interpretation Comments GLUCOSE BEDSIDE (test 140 MG/DL 70-110 H Perfor med by certified code = GLUBED) 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 [facility] FLUID [id number] 11:03:00 Test Item Value Reference Range Interpretation Comments FLUID CO2 (test code = CO2BF) 37 21-33 H [id number] 11:03:00 Test Item Value Reference Range Interpretation Comments FLUID CO2 (test code = CO2BF) 37 21-33 H [id number] METABOLIC [id number] 07:03:00 Test Item Value Reference Range Interpretation [...] code = 9.1 mg/dL 8.0-10.5 N CA) [id number] 07:03:00 Test Item Value Reference Range Interpretation Comments MAGNESIUM (test code = MAG) 1.80 mg/dL 1.80-2.40 N GLUCOSE [id number] 06:35:00 Test Item Value Reference Range Interpretation Comments GLUCOSE BEDSIDE (test 71 MG/DL 70-110 N Perfor med by certified code = GLUBED) 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 [facility] GLUCOSE [id number] 05:43:00 Test Item Value Reference Range Interpretation Comments GLUCOSE BEDSIDE (test 60 MG/DL 70-110 L Perfor med by certified code = GLUBED) 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 [facility] GLUCOSE [id number] 20:43:00 Test Item Value Reference Range Interpretation Comments GLUCOSE BEDSIDE (test 194 MG/DL 70-110 H Perfor med by certified code = GLUBED) 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 [facility] GLUCOSE [id number] 16:59:00 Test Item Value Reference Range Interpretation Comments GLUCOSE BEDSIDE (test 179 MG/DL 70-110 H Perfor med by certified code = GLUBED) 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 [facility] FLUID [id number] 16:10:00 Test Item Value Reference Range Interpretation Comments FLUID CO2 (test code = CO2BF) 39 21-33 H FLUID [id number] 16:10:00 Test Item Value Reference Range Interpretation Comments FLUID CO2 (test code = CO2BF) 39 21-33 H GLUCOSE [id number] 12:10:00 Test Item Value Reference Range Interpretation Comments GLUCOSE BEDSIDE (test 137 MG/DL 70-110 H Perfor med by certified code = GLUBED) 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 [facility] BASIC METABOLIC [id number] 08:04:00 Test Item Value Reference Range Interpretation [...] = 9.0 mg/dL 8.0-10.5 N CA) CALCIUM [id number] 08:04:00 Test Item Value Reference Range Interpretation Comments CALCIUM IONIZED (test code = TYREE) 1.15 MMOL/L 1.09-1.30 N GLUCOSE [id number] 05:42:00 Test Item Value Reference Range Interpretation Comments GLUCOSE BEDSIDE (test 92 MG/DL 70-110 N Perfor med by certified code = GLUBED) 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 [facility] GLUCOSE [id number] 19:49:00 Test Item Value Reference Range Interpretation Comments GLUCOSE BEDSIDE (test 204 MG/DL 70-110 H Perfor med by certified code = GLUBED) 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 [facility] GLUCOSE [id number] 15:58:00 Test Item Value Reference Range Interpretation Comments GLUCOSE BEDSIDE (test 122 MG/DL 70-110 H Perfor med by certified code = GLUBED) 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 [facility] GLUCOSE [id number] 11:08:00 Test Item Value Reference Range Interpretation Comments GLUCOSE BEDSIDE (test 172 MG/DL 70-110 H Perfor med by certified code = GLUBED) 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 [facility] [id number] 07:38:00 Test Item Value Reference Range Interpretation Comments POTASSIUM (test code = K) 3.0 mEq/L 3.4-5.0 L B-TYPE NATRIURETIC [id number] 07:27:00 Test Item Value Reference Range Interpretation Comments B-TYPE NATRIURETIC PEPTIDE (test 232.0 PG/ML 0-100 H code = BNP) GLUCOSE [id number] 06:10:00 Test Item Value Reference Range Interpretation Comments GLUCOSE BEDSIDE (test 94 MG/DL 70-110 N Perfor med by certified code = GLUBED) 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 [facility] - XR CHEST 1 [id number] 00:00[facility]00 [facility] 1945 Sex: F FAX:Abdiaziz Christiansen MD [phone] [place]: St: ADM FAX: Jesus Flores [phone] Name: SAÚL GILES [facility] : 1945 Age/S: 76/F [address] [place] [address] Unit #: [id number] Loc: [place] [address] Phys: Jesus Landry MD Acct: [id number] Dis Date: Status: ADM IN PHONE #: [phone] Date: 01/09/2022 0949 FAX #: [phone] Reason: SHORTNESS OF BREATH EXAMS: CPT CODE: [id number] XR CHEST 1 V 36186 PROCEDURE INFORMATION: Exam: XR Chest Exam date and time: 01/09/2022 9:40 AM Age: 76 years old Clinical indication: Shortness of breath TECHNIQUE: Imaging protocol: Radiologic exam of the chest. Views: 1 view. COMPARISON: CR XR CHEST 1V 01/04/2022 6:50 AM FINDINGS: Tubes, cathetersand devices: Dual lead pacemaker/ICD in place. Mitral valve prosthesis is stable. Lungs: Aeration has improved. Residual indistinct interstitial lines and perihilar opacities. Few bandlike opacities bilateral lungs. Pleural spaces: There is no pneumothorax. Residual blunting of the costophrenic angles. Heart/Mediastinum: Moderate prominence of the cardiac silhouette is [...] Landry Technologist: RT Courtney(Marla) Trnscrd Date/Time/By: 01/09/2022 (1047) : By: Cindy.KWL Orig Print D/T: S: 01/09/2022 (2129) PAGE 1 Signed ReportGLUCOSE [id number] 20:39:00 Test Item Value Reference Range Interpretation Comments GLUCOSE BEDSIDE (test 167 MG/DL 70-110 H Perfor med by certified code = GLUBED) 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 [facility] GLUCOSE [id number] 16:08:00 Test Item Value Reference Range Interpretation Comments GLUCOSE BEDSIDE (test 153 MG/DL 70-110 H Perfor med by certified code = GLUBED) 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 [facility] GLUCOSE [id number] 11:08:00 Test Item Value Reference Range Interpretation Comments GLUCOSE BEDSIDE (test 195 MG/DL 70-110 H Perfor med by certified code = GLUBED) 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 [facility] BASIC METABOLIC [id number] 08:05:00 Test Item Value Reference Range Interpretation [...] 9.4 mg/dL 8.0-10.5 N CA) RENAL FUNCTION [id number] 08:05:00 Test Item Value Reference Range Interpretation Comments ALBUMIN (test code = ALB) 3.50 g/dL 3.4-5.0 N PHOSPHOROUS (test code = PHOS) 2.7 MG/DL 2.5-4.9 N [id number] 08:05:00 Test Item Value Reference Range Interpretation Comments MAGNESIUM (test code = MAG) 1.83 mg/dL 1.80-2.40 N CBC W/AUTO [id number] 08:04:00 Test Item Value Reference Range Interpretation [...] = HGBA1C%) 5.8 %A1C 4.8-6.0 N GLUCOSE [id number] 05:36:00 Test Item Value Reference Range Interpretation Comments GLUCOSE BEDSIDE (test 117 MG/DL 70-110 H Perfor med by certified code = GLUBED) 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 [facility] GLUCOSE [id number] 05:36:00 Test Item Value Reference Range Interpretation Comments GLUCOSE BEDSIDE (test 168 MG/DL 70-110 H Perfor med by certified code = GLUBED) 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 [facility] GLUCOSE [id number] 18:16:00 Test Item Value Reference Range Interpretation Comments GLUCOSE BEDSIDE (test 194 MG/DL 70-110 H Perfor med by certified code = GLUBED) 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 [facility] GLUCOSE [id number] 12:29:00 Test Item Value Reference Range Interpretation Comments GLUCOSE BEDSIDE (test 176 MG/DL 70-110 H Perfor med by certified code = GLUBED) 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 [facility] COVID 19 Asymptomatic IH [id number] 10:20:00 Test Item Value Reference Range Interpretation [...] moderate, high or waivedcomplexit y tests. GLUCOSE [id number] 08:37:00 Test Item Value Reference Range Interpretation Comments GLUCOSE BEDSIDE (test 84 MG/DL 70-110 N Perfor med by certified code = GLUBED) 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 [facility] BASIC METABOLIC [id number] 07:38:00 Test Item Value Reference Range Interpretation [...] = 9.1 mg/dL 8.0-10.5 N CA) GLUCOSE [id number] 21:33:00 Test Item Value Reference Range Interpretation Comments GLUCOSE BEDSIDE (test 119 MG/DL 70-110 H Perfor med by certified code = GLUBED) 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 [facility] GLUCOSE [id number] 18:12:00 Test Item Value Reference Range Interpretation Comments GLUCOSE BEDSIDE (test 170 MG/DL 70-110 H Perfor med by certified code = GLUBED) 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 [facility] GLUCOSE [id number] 12:51:00 Test Item Value Reference Range Interpretation Comments GLUCOSE BEDSIDE (test 200 MG/DL 70-110 H Perfor med by certified code = GLUBED) 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 [facility] GLUCOSE [id number] 08:19:00 Test Item Value Reference Range Interpretation Comments GLUCOSE BEDSIDE (test 105 MG/DL 70-110 N Perfor med by certified code = GLUBED) 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 [facility] BASIC METABOLIC [id number] 04:05:00 Test Item Value Reference Range Interpretation [...] code = 9.4 mg/dL 8.0-10.5 N CA) [id number] 04:05:00 Test Item Value Reference Range Interpretation Comments MAGNESIUM (test code = MAG) 1.86 mg/dL 1.80-2.40 N CBC W/AUTO [id number] 03:38:00 Test Item Value Reference Range Interpretation [...] code NO = MDIFF) - DUP VEIN [id number] 00:00:00 [facility] 1945 Sex: F Name: SAÚL GILES [facility] : 1945 Age/S: 76 / F [address] [place] [address] Unit #: [id number] Loc: [place] [address] 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 COMPARISON: US DUP VEIN BIL12/17/2021 6:12 PM FINDINGS: Right deep veins: Unremarkable. The common femoral, femoral, proximal profunda femoral and popliteal veins are patent without thrombus. Normal Doppler waveforms. Normal compressibility and/or augmentation response. Right superficial veins: Saphenofemoral junction is patent without thrombus. Left deep veins: Unremarkable. The common femoral, femoral, proximal profunda femoral and popliteal veins are patent without thrombus. Normal Doppler waveforms. Normal compressibility and/or augmentation response. Left superficial veins: Saphenofemoral junction is patent without thrombus. Soft tissues: Unremarkable. IMPRESSION: No evidence of deep vein thrombosis. at 06 Reported and signed by: Boo Clay M.D. CC: Jeffry Hsu MD; Abdiaziz Fuchs MD; Kena Francois NP; Colt Vail MD Technologist: Silke Vee RDMS(AB)(OB) Trnscb Date/Time: 01/06/2022 (626) [email or web address] Orig Print D/T: S: 01/06/2022 (626) Probe: PAGE 1 Signed ReportGLUCOSE [id number] 20:46:00 Test Item Value Reference Range Interpretation Comments GLUCOSE BEDSIDE (test 162 MG/DL 70-110 H Perfor med by certified code = GLUBED) 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 [facility] GLUCOSE [id number] 17:16:00 Test Item Value Reference Range Interpretation Comments GLUCOSE BEDSIDE (test 140 MG/DL 70-110 H Perfor med by certified code = GLUBED) 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 [facility] GLUCOSE [id number] 12:54:00 Test Item Value Reference Range Interpretation Comments GLUCOSE BEDSIDE (test 215 MG/DL 70-110 H Perfor med by certified code = GLUBED) 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 [facility] GLUCOSE [id number] 10:11:00 Test Item Value Reference Range Interpretation Comments GLUCOSE BEDSIDE (test 104 MG/DL 70-110 N Perfor med by certified code = GLUBED) 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 [facility] CBC W/AUTO [id number] 04:30:00 Test Item Value Reference Range Interpretation [...] (test code NO = MDIFF) BASIC METABOLIC [id number] 03:15:00 Test Item Value Reference Range Interpretation [...] code = 9.4 mg/dL 8.0-10.5 N CA) [id number] 03:15:00 Test Item Value Reference Range Interpretation Comments MAGNESIUM (test code = MAG) 1.91 mg/dL 1.80-2.40 N GLUCOSE [id number] 23:31:00 Test Item Value Reference Range Interpretation Comments GLUCOSE BEDSIDE (test 108 MG/DL 70-110 N Perfor med by certified code = GLUBED) 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 [facility] GLUCOSE [id number] 23:31:00 Test Item Value Reference Range Interpretation Comments GLUCOSE BEDSIDE (test 259 MG/DL 70-110 H Perfor med by certified code = GLUBED) 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 [facility] GLUCOSE [id number] 10:26:00 Test Item Value Reference Range Interpretation Comments GLUCOSE BEDSIDE (test 141 MG/DL 70-110 H Perfor med by certified code = GLUBED) 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 [facility] GLUCOSE [id number] 07:59:00 Test Item Value Reference Range Interpretation Comments GLUCOSE BEDSIDE (test 87 MG/DL 70-110 N Perfor med by certified code = GLUBED) 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 [facility] BASIC METABOLIC [id number] 04:06:00 Test Item Value Reference Range Interpretation [...] code = 9.8 mg/dL 8.0-10.5 N CA) [id number] 04:06:00 Test Item Value Reference Range Interpretation Comments MAGNESIUM (test code = MAG) 2.02 mg/dL 1.80-2.40 N CBC W/AUTO [id number] 03:56:00 Test Item Value Reference Range Interpretation [...] NO = MDIFF) - XR CHEST 1 [id number] 00:00:00 [facility] 1945 Sex: F FAX:Jeffry Pennington MD [phone] [place]: St: ADM FAX: Abdiaziz Christiansen MD [phone] FAX: René Blancas [phone] FAX: Colt Aguillon MD [phone] Name: SAÚL GILES [facility] [place] : 1945 Age/S: 76/F [address] [place] [address] Unit #: [id number] Loc: [address] [place] [address] Phys: René Villareal MD Acct: [id number] Dis Date: Status: ADM IN PHONE #: [phone] Exam Date: 01/04/2022711 FAX #: [phone] Reason: R/O PLEURAL EFFUSION EXAMS: CPT CODE: [id number] XR CHEST 1 V 21616 PROCEDURE INFORMATION: Exam: XR Chest Exam date and time: 01/04/2022 6:50 AM Age: 76 years old Clinicalindication: Other: R/O pleural effusion TECHNIQUE: Imaging protocol: Radiologic exam of the chest. Views: 1 view. COMPARISON: CR XR CHEST 1V 01/03/2022 6:43 AM FINDINGS: Tubes, catheters and devices: Stable pacemaker. Lungs: Mild worsening right basilar opacities. There could be a small right pleuraleffusion. The other lung opacities are stable. There could be a small left pleural effusion, stable.Pleural spaces: See "Lungs" finding. Heart/Mediastinum: Stable enlarged heart size. Vasculature: Athe rosclerotic calcifications. Bones/joints: Stable. Median sternotomy wires. IMPRESSION: Mild worsening right basilar opacities. Otherwise, stable exam. at 0812 Reported and signed by: Mark Anthony Willis M.D. CC: Jeffry Hsu MD; Abdiaziz Fuchs MD; René Villareal MD; Colt Vail MD Technologist: Demetra Roberto RT(R) Trnscrd Date/Time/By: 01/04/2022 (811) : By: [email or web address] Orig Print D/T: S: 01/04/2022 (812) PAGE 1 Signed ReportGLUCOSE [id number] 20:26:00 Test Item Value Reference Range Interpretation Comments GLUCOSE BEDSIDE (test 117 MG/DL 70-110 H Perfor med by certified code = GLUBED) 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 [facility] GLUCOSE [id number] 16:49:00 Test Item Value Reference Range Interpretation Comments GLUCOSE BEDSIDE (test 180 MG/DL 70-110 H Perfor med by certified code = GLUBED) 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 [facility] GLUCOSE [id number] 12:43:00 Test Item Value Reference Range Interpretation Comments GLUCOSE BEDSIDE (test 189 MG/DL 70-110 H Perfor med by certified code = GLUBED) 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 [facility] GLUCOSE [id number] 07:40:00 Test Item Value Reference Range Interpretation Comments GLUCOSE BEDSIDE (test 96 MG/DL 70-110 N Perfor med by certified code = GLUBED) 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 [facility] BASIC METABOLIC [id number] 05:21:00 Test Item Value Reference Range Interpretation [...] code = 9.8 mg/dL 8.0-10.5 N CA) [id number] 05:21:00 Test Item Value Reference Range Interpretation Comments MAGNESIUM (test code = MAG) 2.20 mg/dL 1.80-2.40 N CBC W/AUTO [id number] 05:15:00 Test Item Value Reference Range Interpretation [...] NO = MDIFF) - XR CHEST 1 [id number] 00:00:00 [facility] : 1945 Sex: F FAX:Jeffry Pennington MD [phone] [place]: St: ADM FAX: Abdiaziz Christiansen MD [phone] FAX: René Blancas [phone] FAX: Colt Aguillon MD [phone] Name: SAÚL GILES [facility] [place] : 1945 Age/S: 76/F [address] [place] [address] Unit #: [id number] Loc: [address] [address] Phys: René Villareal MD Acct: [id number] Dis Date: Status: ADM IN PHONE #: [phone] Exam Date: FAX #: [phone] Reason: R/O PLEURAL EFFUSION EXAMS: CPT CODE: [id number] XR CHEST 1 V 30707 PROCEDURE INFORMATION: Exam: XR Chest Exam date [...] RT(R); Shell Min RT(R) Trnscrd Date/Time/By: 01/03/2022 (0839): By: [email or web address] Orig Print D/T: S: 01/03/2022 (4441) PAGE 1 Signed ReportGLUCOSE BEDSIDE 2022-01-02 20:53:00 Test Item Value Reference Range Interpretation Comments GLUCOSE BEDSIDE (test 187 MG/DL 70-110 H Perfor med by certified code = GLUBED) 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 [facility] GLUCOSE [id number] 17:13:00 Test Item Value Reference Range Interpretation Comments GLUCOSE BEDSIDE (test 164 MG/DL 70-110 H Perfor med by certified code = GLUBED) 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 [facility] GLUCOSE [id number] 12:25:00 Test Item Value Reference Range Interpretation Comments GLUCOSE BEDSIDE (test 190 MG/DL 70-110 H Perfor med by certified code = GLUBED) 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 [facility] GLUCOSE [id number] 09:11:00 Test Item Value Reference Range Interpretation Comments GLUCOSE BEDSIDE (test 207 MG/DL 70-110 H Perfor med by certified code = GLUBED) 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 [facility] BASIC METABOLIC [id number] 04:53:00 Test Item Value Reference Range Interpretation [...] code = 9.8 mg/dL 8.0-10.5 N CA) [id number] 04:53:00 Test Item Value Reference Range Interpretation Comments MAGNESIUM (test code = MAG) 2.02 mg/dL 1.80-2.40 N CBC W/AUTO [id number] 04:33:00 Test Item Value Reference Range Interpretation [...] code NO = MDIFF) POC ARTERIAL BLOOD [id number] 04:18:00 Test Item Value Reference Range Interpretation Comments POC ARTERIAL BLOOD GAS PH (test 7.351 7.35-7.45 N code = POCPHA) POC ARTERIAL BLOOD GAS PCO2 (test 69.0 mmHg 35.0-45 HH code = ACALBC4G) POC TCO2 ARTERIAL (test code = 40.5 POCTCO2) POC ARTERIAL BLOOD GAS PO2 (test 94.8 mmHg 80-100.0 N code = EEJZV9G) POC HCO3 ARTERIAL (test code = 38.4 MMOL/L 22.0-26.0 HH MOWLEI0N) POC BASE EXCESS (test code = 12.7 MMOL/L -4.0-4.0 H POCBEA) POC O2 SATURATION (test code = 96.7 % 90-100 N POCO2S) ABG DELIVERY (test code = MAAME) Cannula ABG TEMPERATURE (test code = 98 F TEMPA) ABG SITE (test code = SITEA) Art Line MARTIN'S TEST (test code = ALLENS) N/A BASIC METABOLIC [id number] 04:18:00 Test Item Value Reference Range Interpretation [...] = POCGLU) 157 MG/DL 70-110 H HEMOGLOBIN [id number] 04:18:00 Test Item Value Reference Range Interpretation Comments HEMOGLOBIN ABG (test code = HGB/ABG) 9.3 G/DL 11.0-15.0 L [id number] 04:18:00 Test Item Value Reference Range Interpretation Comments HEMATOCRIT (test code = HCT/ABG) 27 % 33.0-45.0 L POC LACTIC [id number] 04:18:00 Test Item Value Reference Range Interpretation Comments POC LACTIC ACID (test code = 0.6 mmol/l 0.9-1.7 L POCLAC) - XR CHEST 1 [id number] 00:00:00 [facility] 1945 Sex: F FAX:Jeffry Pennington MD [phone] [place]: St: ADM FAX: Abdiaziz Christiansen MD [phone] FAX: Solange Sawyer MD [phone] FAX: Colt Aguillon MD [phone] Name: SAÚL GILES [facility] : 1945 Age/S: 76/F [address] [place] [address] Unit #: [id number] Loc: [address] [place] [address] Phys: Solange Mohamud MD Acct: [id number] Dis Date: Status: ADM IN PHONE #: [phone] Exam Date: 01/02/202231 FAX #: [phone] Reason: POST-OP CV SURGERY EXAMS: CPT CODE: [id number] XR CHEST 1 V 89518 PROCEDURE INFORMATION: Exam: XR Chest Exam date [...] and its leads are in appropriate position. Lungs: Bilateral opacities throughout [...] 01/02/2022 (800) : By: AureliaMR72 Orig Print D/T: S: 01/02/2022 (800) PAGE 1 Signed ReportGLUCOSE [id number] 21:48:00 Test Item Value Reference Range Interpretation Comments GLUCOSE BEDSIDE (test 196 MG/DL 70-110 H Perfor med by certified code = GLUBED) 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 [facility] GLUCOSE [id number] 18:21:00 Test Item Value Reference Range Interpretation Comments GLUCOSE BEDSIDE (test 218 MG/DL 70-110 H Perfor med by certified code = GLUBED) 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 [facility] GLUCOSE [id number] 12:23:00 Test Item Value Reference Range Interpretation Comments GLUCOSE BEDSIDE (test 191 MG/DL 70-110 H Perfor med by certified code = GLUBED) 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 [facility] GLUCOSE [id number] 08:52:00 Test Item Value Reference Range Interpretation Comments GLUCOSE BEDSIDE (test 95 MG/DL 70-110 N [facility] by certified code = GLUBED) 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 [facility] POC ARTERIAL BLOOD [id number] 06:26:00 Test Item Value Reference Range Interpretation Comments POC ARTERIAL BLOOD GAS PH (test 7.380 7.35-7.45 N code = POCPHA) POC ARTERIAL BLOOD GAS PCO2 65.2 mmHg 35.0-45 HH (test code = IBCEVB5R) POC TCO2 ARTERIAL (test code = 40.8 POCTCO2) POC ARTERIAL BLOOD GAS PO2 (test 98.3 mmHg 80-100.0 N code = RTQDP8C) POC HCO3 ARTERIAL (test code = 38.8 MMOL/L 22.0-26.0 HH AZFPJA8C) POC BASE EXCESS (test code = 13.5 MMOL/L -4.0-4.0 H POCBEA) POC O2 SATURATION (test code = 97.3 % 90-100 N POCO2S) FIO2 (test code = FIO2A) 40 % PaO2/FiO2 (test code = AAS2DBH2) 245.75 mm/Hg ABG DELIVERY (test code = [...] (test code = N/A ALLENS) BASIC METABOLIC [id number] 06:26:00 Test Item Value Reference Range Interpretation [...] = POCGLU) 90 MG/DL 70-110 N HEMOGLOBIN [id number] 06:26:00 Test Item Value Reference Range Interpretation Comments HEMOGLOBIN ABG (test code = HGB/ABG) 8.1 G/DL 11.0-15.0 L [id number] 06:26:00 Test Item Value Reference Range Interpretation Comments HEMATOCRIT (test code = HCT/ABG) 24 % 33.0-45.0 L POC LACTIC [id number] 06:26:00 Test Item Value Reference Range Interpretation Comments POC LACTIC ACID (test code = 0.4 mmol/l 0.9-1.7 L POCLAC) BASIC METABOLIC [id number] 04:01:00 Test Item Value Reference Range Interpretation [...] code = 9.5 mg/dL 8.0-10.5 N CA) [id number] 04:01:00 Test Item Value Reference Range Interpretation Comments MAGNESIUM (test code = MAG) 1.92 mg/dL 1.80-2.40 N CBC W/AUTO [id number] 03:40:00 Test Item Value Reference Range Interpretation [...] NO = MDIFF) - XR CHEST 1 [id number] 00:00:00 [facility] 1945 Sex: F FAX:Jeffry Pennington MD [phone] [place]: St: ADM FAX: Abdiaziz Christiansen MD [phone] FAX: Solange Sawyer MD [phone] FAX: Colt Aguillon MD [phone] Name: SAÚL GILES [facility] : 1945 Age/S: 76/F [address] [place] [address] Unit #: [id number] Loc: [address] [place] [address] Phys: Solange Mohamud MD Acct: [id number] Dis Date: Status: ADM IN PHONE #: [phone] Exam Date: 01/01/2022 06 FAX #: [phone] Reason: POST-OP CV SURGERY EXAMS: CPT CODE: [id number] XR CHEST 1 V 67977 PROCEDUREINFORMATION: Exam: XR Chest Exam date and time: 01/01/2022 5:09 AM Age: 76 years old Clinical indication: Other: Cardiac surgery post op; Additional info: Post-op cv surgery TECHNIQUE: Imaging protocol: Radiologic exam of the chest. Views: 1 view. COMPARISON: CR XR CHEST 1V 12/31/2021 5:29 AM FINDINGS: Tubes, catheters and devices: Pacemaker/ICD leads are stable. EKG leads overlie the chest. Mitral valve prosthesis is stable. Lungs: Bilateral hazy pulmonary opacities with ill-defined airspace opacities mid and lower lung zones. Bibasilar opacities obscuring the hemidiaphragms. Allowing for differenc es in technique and positioning, no significant change. Pleural spaces: There is no pneumothorax. Moderate volume layering pleural effusions grossly stable allowing for differences in positioning on semi upright exam. Heart/Mediastinum: Moderate prominence of the cardiomediastinal silhouette is stable. The pulmonary vasculature is obscured. Bones/joints: Sternotomy wires are intact. IMPRESSION: Stable exam. Bilateral pulmonary opacities likely combination of airspace disease and atelectasis. Bilateral pleural effusions. Stable postoperative cardiomediastinal silhouette. at 0702 Reported and signed by: Jasmeet Carlisle M.D. CC: Jeffry Hsu MD; Abdiaziz Fuchs MD; Solange Mohamud MD; Colt Vail MD Technologist: RT Joe(R) Trnscrd Date/Time/By: 01/01/2022 (701) : By: Catherine Orig Print D/T: S: 01/01/2022 (701) PAGE 1 Signed [facility] ART[facility] BLOOD [id number] 20:21:00 Test Item Value Reference Range Interpretation Comments POC ARTERIAL BLOOD GAS PH (test 7.396 7.35-7.45 N code = POCPHA) POC ARTERIAL BLOOD GAS PCO2 (test 59.8 mmHg 35.0-45 HH code = EUWAEG6H) POC TCO2 ARTERIAL (test code = 38.8 POCTCO2) POC ARTERIAL BLOOD GAS PO2 (test 75.7 mmHg 80-100.0 L code = IJGKT5H) POC HCO3 ARTERIAL (test code = 36.9 MMOL/L 22.0-26.0 HH SQZAHJ4H) POC BASE EXCESS (test code = 11.9 MMOL/L -4.0-4.0 H POCBEA) POC O2 SATURATION (test code = 94.9 % 90-100 N POCO2S) ABG DELIVERY (test code = MAAME) Cannula ABG TEMPERATURE (test code = 97.5 F TEMPA) ABG SITE (test code = SITEA) Art Line MARTIN'S TEST (test code = ALLENS) N/A BASIC METABOLIC [id number] 20:21:00 Test Item Value Reference Range Interpretation [...] = POCGLU) 190 MG/DL 70-110 H HEMOGLOBIN [id number] 20:21:00 Test Item Value Reference Range Interpretation Comments HEMOGLOBIN ABG (test code = HGB/ABG) 8.7 G/DL 11.0-15.0 L [id number] 20:21:00 Test Item Value Reference Range Interpretation Comments HEMATOCRIT (test code = HCT/ABG) 26 % 33.0-45.0 L POC LACTIC [id number] 20:21:00 Test Item Value Reference Range Interpretation Comments POC LACTIC ACID (test code = 1.0 mmol/l 0.9-1.7 N POCLAC) POC ARTERIAL BLOOD [id number] 16:38:00 Test Item Value Reference Range Interpretation Comments POC ARTERIAL BLOOD GAS PH (test 7.402 7.35-7.45 N code = POCPHA) POC ARTERIAL BLOOD GAS PCO2 57.4 mmHg 35.0-45 HH (test code = ROFXKU3F) POC TCO2 ARTERIAL (test code = 37.7 POCTCO2) POC ARTERIAL BLOOD GAS PO2 (test 45.7 mmHg 80-100.0 LL code = DRBLU8G) POC HCO3 ARTERIAL (test code = 35.9 MMOL/L 22.0-26.0 HH [id number]) POC BASE EXCESS (test code = 11.0 MMOL/L -4.0-4.0 H POCBEA) POC O2 SATURATION (test code = 81.8 % 90-100 L POCO2S) FIO2 (test code = FIO2A) 32 % PaO2/FiO2 (test code = OFE6BOP9) 142.81 mm/Hg ABG TEMPERATURE (test code = 97.3 F TEMPA) ABG SITE (test code = SITEA) Art Line BASIC METABOLIC [id number] 16:38:00 Test Item Value Reference Range Interpretation [...] = POCGLU) 313 MG/DL 70-110 H HEMOGLOBIN [id number] 16:38:00 Test Item Value Reference Range Interpretation Comments HEMOGLOBIN ABG (test code = HGB/ABG) 9.3 G/DL 11.0-15.0 L [id number] 16:38:00 Test Item Value Reference Range Interpretation Comments HEMATOCRIT (test code = HCT/ABG) 27 % 33.0-45.0 L POC LACTIC [id number] 16:38:00 Test Item Value Reference Range Interpretation Comments POC LACTIC ACID (test code = 1.0 mmol/l 0.9-1.7 N POCLAC) GLUCOSE [id number] 12:28:00 Test Item Value Reference Range Interpretation Comments GLUCOSE BEDSIDE (test 149 MG/DL 70-110 H Perfor med by certified code = GLUBED) 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 [facility] CBC W/AUTO [id number] 11:32:00 Test Item Value Reference Range Interpretation [...] REQUIRED (test code NO = MDIFF) RBC [id number] 11:32:00 Test Item Value Reference Range Interpretation Comments ANISOCYTOSIS (test code = ANISO) 1+ POLYCHROMASIA (test code = POLC) 2+ HYPOCHROMIA (test code = HYPO) 1+ MACROCYTOSIS (test code = MACR) 1+ ROULEAUX (test code = ROU) 2+ POC ARTERIAL BLOOD [id number] 09:54:00 Test Item Value Reference Range Interpretation Comments POC ARTERIAL BLOOD GAS PH (test 7.445 7.35-7.45 N code = POCPHA) POC ARTERIAL BLOOD GAS PCO2 50.2 mmHg 35.0-45 HH (test code = VNUVUG9D) POC TCO2 ARTERIAL (test code = 36.3 POCTCO2) POC ARTERIAL BLOOD GAS PO2 (test 41.6 mmHg 80-100.0 LL code = OVBDX1D) POC HCO3 ARTERIAL (test code = 34.7 MMOL/L 22.0-26.0 HH WYBHJC8M) POC BASE EXCESS (test code = 10.5 MMOL/L -4.0-4.0 H POCBEA) POC O2 SATURATION (test code = 80.0 % 90-100 L POCO2S) FIO2 (test code = FIO2A) 24 % PaO2/FiO2 (test code = [id number]) 173.33 mm/Hg ABG TEMPERATURE (test code = 97.2 F TEMPA) ABG SITE (test code = SITEA) Art Line BASIC METABOLIC [id number] 09:54:00 Test Item Value Reference Range Interpretation [...] = POCGLU) 175 MG/DL 70-110 H HEMOGLOBIN [id number] 09:54:00 Test Item Value Reference Range Interpretation Comments HEMOGLOBIN ABG (test code = HGB/ABG) 9.4 G/DL 11.0-15.0 L [id number] 09:54:00 Test Item Value Reference Range Interpretation Comments HEMATOCRIT (test code = HCT/ABG) 28 % 33.0-45.0 L POC LACTIC [id number] 09:54:00 Test Item Value Reference Range Interpretation Comments POC LACTIC ACID (test code = 0.8 mmol/l 0.9-1.7 L POCLAC) POC ARTERIAL BLOOD [id number] 08:57:00 Test Item Value Reference Range Interpretation Comments POC ARTERIAL BLOOD GAS PH (test 7.444 7.35-7.45 N code = POCPHA) POC ARTERIAL BLOOD GAS PCO2 (test 50.4 mmHg 35.0-45 HH code = AESLIO7F) POC TCO2 ARTERIAL (test code = 36.1 POCTCO2) POC ARTERIAL BLOOD GAS PO2 (test 33.9 mmHg 80-100.0 LL code = NOGWZ4X) POC HCO3 ARTERIAL (test code = 34.6 MMOL/L 22.0-26.0 HH TIPFWI4A) POC BASE EXCESS (test code = 10.5 MMOL/L -4.0-4.0 H POCBEA) POC O2 SATURATION (test code = 66.6 % 90-100 L POCO2S) ABG DELIVERY (test code = MAAME) Room Air BASIC METABOLIC [id number] 08:57:00 Test Item Value Reference Range Interpretation [...] = POCGLU) 125 MG/DL 70-110 H HEMOGLOBIN [id number] 08:57:00 Test Item Value Reference Range Interpretation Comments HEMOGLOBIN ABG (test code = HGB/ABG) 9.4 G/DL 11.0-15.0 L [id number] 08:57:00 Test Item Value Reference Range Interpretation Comments HEMATOCRIT (test code = HCT/ABG) 28 % 33.0-45.0 L POC LACTIC [id number] 08:57:00 Test Item Value Reference Range Interpretation Comments POC LACTIC ACID (test code = 0.9 mmol/l 0.9-1.7 N POCLAC) GLUCOSE [id number] 08:05:00 Test Item Value Reference Range Interpretation Comments GLUCOSE BEDSIDE (test 82 MG/DL 70-110 N Perfor med by certified code = GLUBED) 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 [facility] BASIC METABOLIC [id number] 04:53:00 Test Item Value Reference Range Interpretation [...] code = 9.8 mg/dL 8.0-10.5 N CA) [id number] 04:53:00 Test Item Value Reference Range Interpretation Comments MAGNESIUM (test code = MAG) 2.24 mg/dL 1.80-2.40 POC ARTERIAL BLOOD [id number] 04:37:00 Test Item Value Reference Range Interpretation Comments POC ARTERIAL BLOOD GAS PH (test 7.393 7.35-7.45 N code = POCPHA) POC ARTERIAL BLOOD GAS PCO2 (test 66.2 mmHg 35.0-45 HH code = HZITTN4X) POC TCO2 ARTERIAL (test code = 42.5 POCTCO2) POC ARTERIAL BLOOD GAS PO2 (test 93.0 mmHg 80-100.0 N code = TGPIO4S) POC HCO3 ARTERIAL (test code = 40.4 MMOL/L 22.0-26.0 HH CDEICT9Q) POC BASE EXCESS (test code = 15.5 MMOL/L -4.0-4.0 H POCBEA) POC O2 SATURATION (test code = 96.8 % 90-100 N POCO2S) ABG DELIVERY (test code = MAAME) Cannula ABG TEMPERATURE (test code = 98.2 F TEMPA) ABG SITE (test code = SITEA) Art Line BASIC METABOLIC [id number] 04:37:00 Test Item Value Reference Range Interpretation [...] = POCGLU) 83 MG/DL 70-110 N HEMOGLOBIN [id number] 04:37:00 Test Item Value Reference Range Interpretation Comments HEMOGLOBIN ABG (test code = 15.1 G/DL 11.0-15.0 H HGB/ABG) [id number] 04:37:00 Test Item Value Reference Range Interpretation Comments HEMATOCRIT (test code = HCT/ABG) 44 % 33.0-45.0 N POC LACTIC [id number] 04:37:00 Test Item Value Reference Range Interpretation Comments POC LACTIC ACID (test code = 0.7 mmol/l 0.9-1.7 L POCLAC) - XR CHEST 1 [id number] 00:00:00 [facility] 1945 Sex: F FAX:Jeffry Pennington MD [phone] [place]: St: ADM FAX: Abdiaziz Christiansen MD [phone] FAX: Solange Sawyer MD [phone] FAX: Colt Aguillon MD [phone] Name: SAÚL GILES [facility] : 1945 Age/S: 76/F [address] [place] [address] Unit #: [id number] Loc: G.220[address] [place] [address] Phys: Solange Mohamud MD Acct: [id number] Dis Date: Status: ADM IN PHONE #: [phone] Exam Date: 12/31/2021628 FAX #: [phone] Reason: POST-OP CV SURGERY EXAMS: CPT CODE: [id number] XR CHEST 1 V 76514 PROCEDURE INFORMATION: Exam: XR Chest Exam date [...] multifocal consolidation and or atelectasis. 2. Stable pleuraleffusions. 3. Stable postoperative cardiomediastinal silhouette. at 0707 Reported and signed by: Jasmeet Carlisle M.D. CC: Jeffry Hsu MD; Abdiaziz Fuchs MD; Solange Mohamud MD; Colt Vail MD Technologist: RT Caroline(R) Trnscrd Date/Time/By: 12/31/2021 (07) : By: Catherine Orig Print D/T: S: 12/31/2021 (0708) PAGE1 Signed ReportGLUCOSE [id number] 21:23:00 Test Item Value Reference Range Interpretation Comments GLUCOSE BEDSIDE (test 189 MG/DL 70-110 H [facility] by certified code = GLUBED) 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 [facility] BASIC METABOLIC [id number] 19:24:00 Test Item Value Reference Range Interpretation [...] code = 9.8 mg/dL 8.0-10.5 N CA) [id number] 19:24:00 Test Item Value Reference Range Interpretation Comments MAGNESIUM (test code = MAG) 1.84 mg/dL 1.80-2.40 GLUCOSE [id number] 17:33:00 Test Item Value Reference Range Interpretation Comments GLUCOSE BEDSIDE (test 213 MG/DL 70-110 H Perfor med by certified code = GLUBED) 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 [facility] GLUCOSE [id number] 12:11:00 Test Item Value Reference Range Interpretation Comments GLUCOSE BEDSIDE (test 146 MG/DL 70-110 H Perfor med by certified code = GLUBED) 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 [facility] POC ARTERIAL BLOOD [id number] 11:42:00 Test Item Value Reference Range Interpretation Comments POC ARTERIAL BLOOD GAS PH (test 7.373 7.35-7.45 N code = POCPHA) POC ARTERIAL BLOOD GAS PCO2 (test 60.9 mmHg 35.0-45 HH code = FTBFVR6M) POC TCO2 ARTERIAL (test code = 37.3 POCTCO2) POC ARTERIAL BLOOD GAS PO2 (test 57.7 mmHg 80-100.0 L code = LVABF6U) POC HCO3 ARTERIAL (test code = 35.5 MMOL/L 22.0-26.0 HH FDEZSC6U) POC BASE EXCESS (test code = 10.2 MMOL/L -4.0-4.0 H POCBEA) POC O2 SATURATION (test code = 87.8 % 90-100 L POCO2S) ABG DELIVERY (test code = MAAME) HFNC ABG TEMPERATURE (test code = 98.6 F TEMPA) ABG SITE (test code = SITEA) L Radial MARTIN'S TEST (test code = ALLENS) N/A BASIC METABOLIC [id number] 11:42:00 Test Item Value Reference Range Interpretation [...] = POCGLU) 103 MG/DL 70-110 N HEMOGLOBIN [id number] 11:42:00 Test Item Value Reference Range Interpretation Comments HEMOGLOBIN ABG (test code = HGB/ABG) 8.3 G/DL 11.0-15.0 L [id number] 11:42:00 Test Item Value Reference Range Interpretation Comments HEMATOCRIT (test code = HCT/ABG) 24 % 33.0-45.0 L POC LACTIC [id number] 11:42:00 Test Item Value Reference Range Interpretation Comments POC LACTIC ACID (test code = 0.7 mmol/l 0.9-1.7 L POCLAC) BASIC METABOLIC [id number] 05:54:00 Test Item Value Reference Range Interpretation [...] code = 9.9 mg/dL 8.0-10.5 N CA) [id number] 05:54:00 Test Item Value Reference Range Interpretation Comments MAGNESIUM (test code = MAG) 2.23 mg/dL 1.80-2.40 N CBC W/AUTO [id number] 05:01:00 Test Item Value Reference Range Interpretation [...] code NO = MDIFF) POC ARTERIAL BLOOD [id number] 04:58:00 Test Item Value Reference Range Interpretation Comments POC ARTERIAL BLOOD GAS PH (test 7.355 7.35-7.45 N code = POCPHA) POC ARTERIAL BLOOD GAS PCO2 68.7 mmHg 35.0-45 HH (test code = TYNLTZ1S) POC TCO2 ARTERIAL (test code = 40.8 POCTCO2) POC ARTERIAL BLOOD GAS PO2 (test 61.3 mmHg 80-100.0 L code = ESETC2R) POC HCO3 ARTERIAL (test code = 38.7 MMOL/L 22.0-26.0 HH UQOQPN6T) POC BASE EXCESS (test code = 12.9 MMOL/L -4.0-4.0 H POCBEA) POC O2 SATURATION (test code = 89.8 % 90-100 L POCO2S) FIO2 (test code = FIO2A) 40 % PaO2/FiO2 (test code = RYC2YKS7) 153.25 mm/Hg ABG DELIVERY (test code = MAAME) BiPAP ABG VENT RESP RATE (test code = 20 /MIN RRA) ABG PEEP (test code = PEEPA) 8 cmH2O ABG TEMPERATURE (test code = 97.2 F TEMPA) ABG SITE (test code = SITEA) Art Line BASIC METABOLIC [id number] 04:58:00 Test Item Value Reference Range Interpretation [...] = POCGLU) 112 MG/DL 70-110 H HEMOGLOBIN [id number] 04:58:00 Test Item Value Reference Range Interpretation Comments HEMOGLOBIN ABG (test code = HGB/ABG) 7.6 G/DL 11.0-15.0 L [id number] 04:58:00 Test Item Value Reference Range Interpretation Comments HEMATOCRIT (test code = HCT/ABG) 22 % 33.0-45.0 L POC LACTIC [id number] 04:58:00 Test Item Value Reference Range Interpretation Comments POC LACTIC ACID (test code = 0.5 mmol/l 0.9-1.7 L POCLAC) - CT CHEST W/O [id number] [facility]:00[facility]00 [facility] 1945 Sex: F Name: SAÚL GILES [facility] : 1945 Age/S: 76 / F [address] [place] [address] Unit #: [id number] Loc: [place] [address] 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 There are multifocal ill-defined ground-glass opacities involving aerated portions of the lungs bilateral. Areas of interstitial septal thickening associated with ground-glass opacities with scattered small areas [...] CABG and mitral valve replacement. Dual chamber pacemaker/ICDleads in place. Trace pericardial fluid. Mediastinal space: There are postoperative changes in the anterior mediastinum with small volume fluid collection in the retrosternal space 1.2 cm thickness mildly hyperattenuating at 28 Hounsfield units. Lymph nodes: Unremarkable. No enlarged lymph nodes. Vasculature: Unremarkable. No aortic aneurysm. Bones/joints: Median sternotomy is well approximated. No bone destructive changes. Soft tissues: Midline skin incision is well approximated. No chest wall fluid collection. 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 Bilateral multifocal ground-glass pulmonary opacities with as sociated interstitial septal thickening. Edema and inflammation in the differential. Imaging features can be seen with COVID-19 pneumonia, though are nonspecific and can occur with a variety of infectious and noninfectious processes. (Reference: Michael) 2. Partial atelectasis of the lower lobes with a dditional foci of subsegmental atelectasis and or consolidation. 3. Small bilateral pleural effusions. 4. Postoperative changes of CABG. Stable cardiomegaly. Trace pericardial fluid. Small volume anterior mediastinal hematoma/seroma. REFERENCES: Michael Gutierrez et al., Radiological Society of North AmericaExpert Consensus Statement on Reporting Chest CT Findings Related to COVID-19. Endorsed by the Society of Thoracic Radiology, the [place] [employer], and RSNA. Published June 07, 2019. at 1433 Reported and signed by: Jasmeet Carlisle M.D. CC: Jeffry Hsu MD; Abdiaziz Fuchs MD; Kena Macedo NP; Colt Vail MD Technologist:Ming Chapman, RT(R)(CT) CTDI: DLP: Trnscb Date/Time: 12/30/2021 (1432) [id number] Orig Print D/T: S: 12/30/2021 (1433) PAGE 2 Signed Report- XR CHEST 1 [id number] 00:00:00 [facility] : 1945 Sex: F FAX:Jeffry Pennington MD [phone] [place]: St: ADM FAX: Abdiaziz Christiansen MD [phone] FAX: Solange Sawyer MD [phone] FAX: Colt Aguillon MD [phone] Name: SAÚL GILES [facility] : 1945 Age/S: 76/F [address] [place] [address] Unit #: [id number] Loc: [address] [address] Phys: Solange Mohamud MD Acct: [id number] Dis Date: Status: ADM IN PHONE #: [phone] Exam Date: 12/30/2021 0612FAX #: [phone] Reason: POST-OP CV SURGERY EXAMS: CPT CODE: [id number] XR CHEST 1 V 57357 PROCEDURE INFORMATION: Exam: XR Chest Exam date and time: 12/30/2021 4:58 AM Age: 76 years old Clinical indication: Other: Post-op cv surgery TECHNIQUE: Imaging protocol: Radiologic exam of the chest. Views: 1 view. COMPARISON: 1. CR XR CHEST 1V 12/29/2021 5:18 AM 2. CR XR CHEST 1V 12/28/2021 5:57 AM 3. CR XR CHEST 1V 12/27/2021 5:54 AM FINDINGS: Tubes, catheters and devices: Pacemaker/ICD leads are stable.Mitral valve prosthesis is stable. EKG and epicardial pacer leads overlie the chest. Lungs: There are ill-defined pulmonary opacities bilateral with multifocal consolidation. Increased opacity in the ri ght upper lobe marginated caudally by the minor fissure. Bibasilar opacities obscuring the hemidiaphragms grossly stable otherwise. Pleural spaces: There is no pneumothorax. Bilateral pleural effusionsare grossly stable allowing for differences in positioning on semi upright exam. Heart/Mediastinum: Moderate prominence of the cardiomediastinal silhouette is grossly stable allowing for patient rotation. Pulmonary vasculature is predominantly obscured. Bones/joints: Sternotomy wires are intact. IMPRESSION: 1. Bilateral pulmonary opacities with multifocal airspace disease. Progression of disease inthe right upper lobe. Edema and pneumonia in the differential. 2. Stable pleural effusions with bibas ilar atelectasis and or airspace disease. at 0706 Reported and signed by: Jasmeet Carlisle M.D. PAGE 1 Signed Report (CONTINUED) FAX: Jeffry Pennington MD [phone] [place]: St: ADM FAX: Abdiaziz Christiansen MD [phone] FAX: Solange Sawyer MD [phone] FAX: Colt Aguillon MD [phone] Name: SAÚL GILES [facility] : 1945ge/S: 76/F [address] [place] [address] Unit #: [id number] Loc: G.[address] [place] [address] Phys: Solange Mohamud MD Acct: [id number] Dis Date: Status: ADM IN PHONE #: [phone] Exam Date: 12/30/2021611 FAX #: [phone] Reason: POST-OP CV SURGERY EXAMS: CPT CODE: [id number] XR CHEST 1 V 68627 (Continued) CC: Jeffry Hsu MD; Abdiaziz Fuchs MD; Solange Mohamud MD; Colt Vail MD Technologist: Hali Leon, RT(R) Trnscrd Date/Time/By: 12/30/2021 (705) : By: Catherine Orig Print D/T: S: 12/30/2021 (705) PAGE 2 Signed ReportGLUCOSE [id number] 20:24:00 Test Item Value Reference Range Interpretation Comments GLUCOSE BEDSIDE (test 185 MG/DL 70-110 H Perfor med by certified code = GLUBED) 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 [facility] GLUCOSE [id number] 18:05:00 Test Item Value Reference Range Interpretation Comments GLUCOSE BEDSIDE (test 197 MG/DL 70-110 H Perfor med by certified code = GLUBED) 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 [facility] BASIC METABOLIC [id number] 12:52:00 Test Item Value Reference Range Interpretation [...] code = 9.5 mg/dL 8.0-10.5 N CA) [id number] 12:52:00 Test Item Value Reference Range Interpretation Comments MAGNESIUM (test code = MAG) 2.38 mg/dL 1.80-2.40 N GLUCOSE [id number] 12:29:00 Test Item Value Reference Range Interpretation Comments GLUCOSE BEDSIDE (test 236 MG/DL 70-110 H Perfor med by certified code = GLUBED) 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 [facility] GLUCOSE [id number] 08:29:00 Test Item Value Reference Range Interpretation Comments GLUCOSE BEDSIDE (test 150 MG/DL 70-110 H Perfor med by certified code = GLUBED) 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 [facility] GLUCOSE [id number] 05:47:00 Test Item Value Reference Range Interpretation Comments GLUCOSE BEDSIDE (test 126 MG/DL 70-110 H Perfor med by certified code = GLUBED) 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 [facility] POC ARTERIAL BLOOD [id number] 05:42:00 Test Item Value Reference Range Interpretation Comments POC ARTERIAL BLOOD GAS PH (test 7.357 7.35-7.45 N code = POCPHA) POC ARTERIAL BLOOD GAS PCO2 71.1 mmHg 35.0-45 HH (test code = QJKMFB4J) POC TCO2 ARTERIAL (test code = 42.4 POCTCO2) POC ARTERIAL BLOOD GAS PO2 (test 83.8 mmHg 80-100.0 N code = SKMDW3Z) POC HCO3 ARTERIAL (test code = 40.1 MMOL/L 22.0-26.0 HH ZFOUXK4D) POC BASE EXCESS (test code = 14.5 MMOL/L -4.0-4.0 H POCBEA) POC O2 SATURATION (test code = 95.5 % 90-100 N POCO2S) FIO2 (test code = FIO2A) 40 % PaO2/FiO2 (test code = [id number]) 209.50 mm/Hg ABG DELIVERY (test code = MAAME) BiPAP ABG TEMPERATURE (test code = 97.5 F TEMPA) ABG SITE (test code = SITEA) Art Line BASIC METABOLIC [id number] 05:42:00 Test Item Value Reference Range Interpretation [...] = POCGLU) 122 MG/DL 70-110 H HEMOGLOBIN [id number] 05:42:00 Test Item Value Reference Range Interpretation Comments HEMOGLOBIN ABG (test code = HGB/ABG) 7.8 G/DL 11.0-15.0 L [id number] 05:42:00 Test Item Value Reference Range Interpretation Comments HEMATOCRIT (test code = HCT/ABG) 23 % 33.0-45.0 L POC LACTIC [id number] 05:42:00 Test Item Value Reference Range Interpretation Comments POC LACTIC ACID (test code = 0.5 mmol/l 0.9-1.7 L POCLAC) [id number] 04:44:00 Test Item Value Reference Range Interpretation Comments MAGNESIUM (test code = MAG) 2.29 mg/dL 1.80-2.40 N BASIC METABOLIC [id number] 04:22:00 Test Item Value Reference Range Interpretation [...] 9.5 mg/dL 8.0-10.5 N CA) CBC W/AUTO [id number] 04:12:00 Test Item Value Reference Range Interpretation [...] REQUIRED (test code NO = MDIFF) GLUCOSE [id number] 03:12:00 Test Item Value Reference Range Interpretation Comments GLUCOSE BEDSIDE (test 124 MG/DL 70-110 H [facility] med by certified code = GLUBED) 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 [facility] POC ARTERIAL BLOOD [id number] 03:03:00 Test Item Value Reference Range Interpretation Comments POC ARTERIAL BLOOD GAS PH (test 7.367 7.35-7.45 N code = POCPHA) POC ARTERIAL BLOOD GAS PCO2 73.2 mmHg 35.0-45 HH (test code = RAVOAJ5X) POC TCO2 ARTERIAL (test code = 44.7 POCTCO2) POC ARTERIAL BLOOD GAS PO2 (test 84.4 mmHg 80-100.0 N code = XUYJF1W) POC HCO3 ARTERIAL (test code = 42.4 MMOL/L 22.0-26.0 HH FEYYMY9N) POC BASE EXCESS (test code = 16.9 MMOL/L -4.0-4.0 H POCBEA) POC O2 SATURATION (test code = 95.7 % 90-100 N POCO2S) FIO2 (test code = FIO2A) 40 % PaO2/FiO2 (test code = [id number]) 211.00 mm/Hg ABG DELIVERY (test code = MAAME) BiPAP ABG TEMPERATURE (test code = 97.5 F TEMPA) ABG SITE (test code = SITEA) Art Line BASIC METABOLIC [id number] 03:03:00 Test Item Value Reference Range Interpretation [...] = POCGLU) 125 MG/DL 70-110 H HEMOGLOBIN [id number] 03:03:00 Test Item Value Reference Range Interpretation Comments HEMOGLOBIN ABG (test code = HGB/ABG) 8.2 G/DL 11.0-15.0 L [id number] 03:03:00 Test Item Value Reference Range Interpretation Comments HEMATOCRIT (test code = HCT/ABG) 24 % 33.0-45.0 L POC LACTIC [id number] 03:03:00 Test Item Value Reference Range Interpretation Comments POC LACTIC ACID (test code = 0.5 mmol/l 0.9-1.7 L POCLAC) POC ARTERIAL BLOOD [id number] 02:09:00 Test Item Value Reference Range Interpretation Comments POC ARTERIAL BLOOD GAS PH (test 7.327 7.35-7.45 L code = POCPHA) POC ARTERIAL BLOOD GAS PCO2 80.5 mmHg 35.0-45 HH (test code = CBVXIM2X) POC TCO2 ARTERIAL (test code = 45.0 POCTCO2) POC ARTERIAL BLOOD GAS PO2 (test 73.3 mmHg 80-100.0 L code = PLRAX1K) POC HCO3 ARTERIAL (test code = 42.4 MMOL/L 22.0-26.0 HH VFIILW0I) POC BASE EXCESS (test code = 16.3 MMOL/L -4.0-4.0 H POCBEA) POC O2 SATURATION (test code = 92.8 % 90-100 N POCO2S) FIO2 (test code = FIO2A) 40 % PaO2/FiO2 (test code = SNO4NLU9) 183.25 mm/Hg ABG DELIVERY (test code = MAAME) BiPAP ABG TEMPERATURE (test code = 97.5 F TEMPA) ABG SITE (test code = SITEA) Art Line BASIC METABOLIC [id number] 02:09:00 Test Item Value Reference Range Interpretation [...] = POCGLU) 106 MG/DL 70-110 N HEMOGLOBIN [id number] 02:09:00 Test Item Value Reference Range Interpretation Comments HEMOGLOBIN ABG (test code = HGB/ABG) 7.9 G/DL 11.0-15.0 L [id number] 02:09:00 Test Item Value Reference Range Interpretation Comments HEMATOCRIT (test code = HCT/ABG) 23 % 33.0-45.0 L POC LACTIC [id number] 02:09:00 Test Item Value Reference Range Interpretation Comments POC LACTIC ACID (test code = 0.5 mmol/l 0.9-1.7 L POCLAC) POC ARTERIAL BLOOD [id number] 01:21:00 Test Item Value Reference Range Interpretation Comments POC ARTERIAL BLOOD GAS PH (test 7.326 7.35-7.45 L code = POCPHA) POC ARTERIAL BLOOD GAS PCO2 81.2 mmHg 35.0-45 HH (test code = ZBONSZ2W) POC TCO2 ARTERIAL (test code = 45.3 POCTCO2) POC ARTERIAL BLOOD GAS PO2 (test 78.4 mmHg 80-100.0 L code = DFKUF0O) POC HCO3 ARTERIAL (test code = 42.8 MMOL/L 22.0-26.0 HH [id number]) POC BASE EXCESS (test code = 16.6 MMOL/L -4.0-4.0 H POCBEA) POC O2 SATURATION (test code = 94.0 % 90-100 N POCO2S) FIO2 (test code = FIO2A) 40 % PaO2/FiO2 (test code = [id number]) 196.00 mm/Hg ABG DELIVERY (test code = MAAME) BiPAP ABG TEMPERATURE (test code = 97.3 F TEMPA) ABG SITE (test code = SITEA) Art Line MARTIN'S TEST (test code = N/A ALLENS) BASIC METABOLIC [id number] 01:21:00 Test Item Value Reference Range Interpretation [...] = POCGLU) 120 MG/DL 70-110 H HEMOGLOBIN [id number] 01:21:00 Test Item Value Reference Range Interpretation Comments HEMOGLOBIN ABG (test code = HGB/ABG) 7.5 G/DL 11.0-15.0 L [id number] 01:21:00 Test Item Value Reference Range Interpretation Comments HEMATOCRIT (test code = HCT/ABG) 22 % 33.0-45.0 L POC LACTIC [id number] 01:21:00 Test Item Value Reference Range Interpretation Comments POC LACTIC ACID (test code = 0.7 mmol/l 0.9-1.7 L POCLAC) GLUCOSE [id number] 01:05:00 Test Item Value Reference Range Interpretation Comments GLUCOSE BEDSIDE (test 126 MG/DL 70-110 H [facility] med by certified code = GLUBED) 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 [facility] GLUCOSE [id number] 00:10:00 Test Item Value Reference Range Interpretation Comments GLUCOSE BEDSIDE (test 120 MG/DL 70-110 H Perfor med by certified code = GLUBED) 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 [facility] GLUCOSE [id number] 00:10:00 Test Item Value Reference Range Interpretation Comments GLUCOSE BEDSIDE (test 43 MG/DL 70-110 L Perfor med by certified code = GLUBED) 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 [facility] - XR CHEST 1 [id number] 00:00:00 [facility] 1945 Sex: F FAX:Jeffry Pennington MD [phone] [place]: St: ADM FAX: Abdiaziz Christiansen MD [phone] FAX: Solange Sawyer MD [phone] FAX: Colt Aguillon MD [phone] Name: SAÚL GILES [facility] : 1945 Age/S: 76/F [address] [place] [address] Blvd Unit #: [id number] Loc: G.[address] [place] [address] Phys: Solange Mohamud MD Acct: [id number] Dis Date: Status: ADM IN PHONE #: [phone] Exam Date: 12/29/2021 06 FAX #: [phone] Reason: POST-OP CV SURGERY EXAMS: CPT CODE: [id number] XR CHEST 1 V [id number] PROCEDUREINFORMATION: Exam: XR Chest Exam date and time: 12/29/2021 5:18 AM Age: 76 years old Clinical indication: Other: Post-op cv surgery TECHNIQUE: Imaging protocol: Radiologic exam of the chest. Views: 1 view. COMPARISON: CR XR CHEST 1V 12/28/2021 5:57 AM IMPRESSION: 1. The intracardiac pacer leads are jaskaran ssly unchanged. 2. There is no significant interval change in generalized right pulmonary opacification. 3. There is mild improved aeration of both lung bases. 4. No pneumothorax is visible. at 0702 Reported and signed by: Bill Kern M.D. CC: Jeffry Hsu MD; Abdiaziz Fuchs MD; Soalnge Mohamud MD; Colt Vail MD Technologist: RT Caroline(R) Trnscrd Date/Time/By: 12/29/2021 (701) : By: [email or web address] Orig Print D/T: S: 12/29/2021 (701) PAGE 1 Signed ReportGLUCOSE [id number] 23:44:00 Test Item Value Reference Range Interpretation Comments GLUCOSE BEDSIDE (test 37 MG/DL 70-110 L [facility] by certified code = GLUBED) 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 [facility] BASIC METABOLIC [id number] 21:29:00 Test Item Value Reference Range Interpretation [...] = 9.7 mg/dL 8.0-10.5 N CA) GLUCOSE [id number] 21:20:00 Test Item Value Reference Range Interpretation Comments GLUCOSE BEDSIDE (test 117 MG/DL 70-110 H [facility] med by certified code = GLUBED) 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 [facility] POC ARTERIAL BLOOD [id number] 21:09:00 Test Item Value Reference Range Interpretation Comments POC ARTERIAL BLOOD GAS PH (test 7.363 7.35-7.45 N code = POCPHA) POC ARTERIAL BLOOD GAS PCO2 (test 72.2 mmHg 35.0-45 HH code = ACUIZV8W) POC TCO2 ARTERIAL (test code = 43.4 POCTCO2) POC ARTERIAL BLOOD GAS PO2 (test 77.1 mmHg 80-100.0 L code = NLTAE5R) POC HCO3 ARTERIAL (test code = 41.2 MMOL/L 22.0-26.0 HH AVOKMU8G) POC BASE EXCESS (test code = 15.7 MMOL/L -4.0-4.0 H POCBEA) POC O2 SATURATION (test code = 94.1 % 90-100 N POCO2S) ABG DELIVERY (test code = MAAME) Cannula ABG TEMPERATURE (test code = 98.1 F TEMPA) ABG SITE (test code = SITEA) Art Line BASIC METABOLIC [id number] 21:09:00 Test Item Value Reference Range Interpretation [...] = POCGLU) 104 MG/DL 70-110 N HEMOGLOBIN [id number] 21:09:00 Test Item Value Reference Range Interpretation Comments HEMOGLOBIN ABG (test code = HGB/ABG) 8.2 G/DL 11.0-15.0 L [id number] 21:09:00 Test Item Value Reference Range Interpretation Comments HEMATOCRIT (test code = HCT/ABG) 24 % 33.0-45.0 L POC LACTIC [id number] 21:09:00 Test Item Value Reference Range Interpretation Comments POC LACTIC ACID (test code = 0.8 mmol/l 0.9-1.7 L POCLAC) GLUCOSE [id number] 19:27:00 Test Item Value Reference Range Interpretation Comments GLUCOSE BEDSIDE (test 139 MG/DL 70-110 H Perfor med by certified code = GLUBED) 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 [facility] GLUCOSE [id number] 19:21:00 Test Item Value Reference Range Interpretation Comments GLUCOSE BEDSIDE (test 106 MG/DL 70-110 N Perfor med by certified code = GLUBED) 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 [facility] GLUCOSE [id number] 16:45:00 Test Item Value Reference Range Interpretation Comments GLUCOSE BEDSIDE (test 162 MG/DL 70-110 H Perfor med by certified code = GLUBED) 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 [facility] GLUCOSE [id number] 16:42:00 Test Item Value Reference Range Interpretation Comments GLUCOSE BEDSIDE (test 225 MG/DL 70-110 H Perfor med by certified code = GLUBED) 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 [facility] POC ARTERIAL BLOOD [id number] 16:39:00 Test Item Value Reference Range Interpretation Comments POC ARTERIAL BLOOD GAS PH (test 7.396 7.35-7.45 N code = POCPHA) POC ARTERIAL BLOOD GAS PCO2 (test 65.9 mmHg 35.0-45 HH code = XCVBOI3G) POC TCO2 ARTERIAL (test code = 42.7 POCTCO2) POC ARTERIAL BLOOD GAS PO2 (test 74.6 mmHg 80-100.0 L code = CCLEZ7Z) POC HCO3 ARTERIAL (test code = 40.6 MMOL/L 22.0-26.0 HH GBYCOV4Y) POC BASE EXCESS (test code = 15.7 MMOL/L -4.0-4.0 H POCBEA) POC O2 SATURATION (test code = 94.3 % 90-100 N POCO2S) ABG DELIVERY (test code = MAAME) Cannula ABG TEMPERATURE (test code = 98 F TEMPA) ABG SITE (test code = SITEA) Art Line BASIC METABOLIC [id number] 16:39:00 Test Item Value Reference Range Interpretation [...] = POCGLU) 131 MG/DL 70-110 H HEMOGLOBIN [id number] 16:39:00 Test Item Value Reference Range Interpretation Comments HEMOGLOBIN ABG (test code = HGB/ABG) 8.5 G/DL 11.0-15.0 L [id number] 16:39:00 Test Item Value Reference Range Interpretation Comments HEMATOCRIT (test code = HCT/ABG) 25 % 33.0-45.0 L POC LACTIC [id number] 16:39:00 Test Item Value Reference Range Interpretation Comments POC LACTIC ACID (test code = 0.7 mmol/l 0.9-1.7 L POCLAC) GLUCOSE [id number] 14:00:00 Test Item Value Reference Range Interpretation Comments GLUCOSE BEDSIDE (test 212 MG/DL 70-110 H Perfor med by certified code = GLUBED) 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 [facility] GLUCOSE [id number] 13:59:00 Test Item Value Reference Range Interpretation Comments GLUCOSE BEDSIDE (test 227 MG/DL 70-110 H Perfor med by certified code = GLUBED) 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 [facility] BASIC METABOLIC [id number] 12:35:00 Test Item Value Reference Range Interpretation [...] mg/dL 8.0-10.5 N CA) POC ARTERIAL BLOOD [id number] 11:40:00 Test Item Value Reference Range Interpretation Comments POC ARTERIAL BLOOD GAS PH (test 7.349 7.35-7.45 L code = POCPHA) POC ARTERIAL BLOOD GAS PCO2 72.2 mmHg 35.0-45 HH (test code = GCSVRC3A) POC TCO2 ARTERIAL (test code = 42.2 POCTCO2) POC ARTERIAL BLOOD GAS PO2 (test 95.9 mmHg 80-100.0 N code = NJGEF5U) POC HCO3 ARTERIAL (test code = 39.9 MMOL/L 22.0-26.0 HH KADQAD6D) POC BASE EXCESS (test code = 14.2 MMOL/L -4.0-4.0 H POCBEA) POC O2 SATURATION (test code = 96.7 % 90-100 N POCO2S) FIO2 (test code = FIO2A) 40 % PaO2/FiO2 (test code = QVB6DDI1) 239.75 mm/Hg ABG DELIVERY (test code = MAAME) CPAP ABG TEMPERATURE (test code = 98 F TEMPA) ABG SITE (test code = SITEA) Art Line MARTIN'S TEST (test code = N/A ALLENS) BASIC METABOLIC [id number] 11:40:00 Test Item Value Reference Range Interpretation [...] = POCGLU) 303 MG/DL 70-110 H HEMOGLOBIN [id number] 11:40:00 Test Item Value Reference Range Interpretation Comments HEMOGLOBIN ABG (test code = HGB/ABG) 8.3 G/DL 11.0-15.0 L [id number] 11:40:00 Test Item Value Reference Range Interpretation Comments HEMATOCRIT (test code = HCT/ABG) 24 % 33.0-45.0 L POC LACTIC [id number] 11:40:00 Test Item Value Reference Range Interpretation Comments POC LACTIC ACID (test code = 0.7 mmol/l 0.9-1.7 L POCLAC) GLUCOSE [id number] 10:54:00 Test Item Value Reference Range Interpretation Comments GLUCOSE BEDSIDE (test 289 MG/DL 70-110 H Perfor med by certified code = GLUBED) 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 [facility] GLUCOSE [id number] 07:48:00 Test Item Value Reference Range Interpretation Comments GLUCOSE BEDSIDE (test 107 MG/DL 70-110 N Perfor med by certified code = GLUBED) 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 [facility] BASIC METABOLIC [id number] 04:25:00 Test Item Value Reference Range Interpretation [...] code = 10.0 mg/dL 8.0-10.5 N CA) [id number] 04:25:00 Test Item Value Reference Range Interpretation Comments MAGNESIUM (test code = MAG) 2.19 mg/dL 1.80-2.40 N CBC W/AUTO [id number] 04:02:00 Test Item Value Reference Range Interpretation [...] code NO = MDIFF) POC ARTERIAL BLOOD [id number] 03:44:00 Test Item Value Reference Range Interpretation Comments POC ARTERIAL BLOOD GAS PH (test 7.408 7.35-7.45 N code = POCPHA) POC ARTERIAL BLOOD GAS PCO2 (test 63.1 mmHg 35.0-45 HH code = GFNYPQ3A) POC TCO2 ARTERIAL (test code = 42.0 POCTCO2) POC ARTERIAL BLOOD GAS PO2 (test 58.6 mmHg 80-100.0 L code = GGGJA0S) POC HCO3 ARTERIAL (test code = 40.0 MMOL/L 22.0-26.0 HH WNYJEQ0I) POC BASE EXCESS (test code = 15.2 MMOL/L -4.0-4.0 H POCBEA) POC O2 SATURATION (test code = 89.7 % 90-100 L POCO2S) ABG DELIVERY (test code = MAAME) Cannula ABG TEMPERATURE (test code = 97.7 F TEMPA) ABG SITE (test code = SITEA) Art Line BASIC METABOLIC [id number] 03:44:00 Test Item Value Reference Range Interpretation [...] = POCGLU) 102 MG/DL 70-110 N HEMOGLOBIN [id number] 03:44:00 Test Item Value Reference Range Interpretation Comments HEMOGLOBIN ABG (test code = HGB/ABG) 8.4 G/DL 11.0-15.0 L [id number] 03:44:00 Test Item Value Reference Range Interpretation Comments HEMATOCRIT (test code = HCT/ABG) 25 % 33.0-45.0 L POC LACTIC [id number] 03:44:00 Test Item Value Reference Range Interpretation Comments POC LACTIC ACID (test code = 0.5 mmol/l 0.9-1.7 L POCLAC) GLUCOSE [id number] 01:41:00 Test Item Value Reference Range Interpretation Comments GLUCOSE BEDSIDE (test 130 MG/DL 70-110 H Perfor med by certified code = GLUBED) 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 [facility] - XR CHEST 1 [id number] 00:00:00 [facility] 1945 Sex: F FAX:Jeffry Pennington MD [phone] [place]: St: ADM FAX: Abdiaziz Christiansen MD [phone] FAX: Solange Sawyer MD [phone] FAX: Colt Aguillon MD [phone] Name: SAÚL GILES [facility] : 1945 Age/S: 76/F [address] [place] [address] Unit #: [id number] Loc: [address] [place] [address] Phys: Solange Mohamud MD Acct: [id number] Dis Date: Status: ADM IN PHONE #: [phone] Exam Date: 12/28/2021 0709 FAX #: [phone] Reason: POST-OP CV SURGERY EXAMS: CPT CODE: [id number] XR CHEST 1 V 16354 PROCEDURE INFORMATION: Exam: XR Chest Exam date and time: 12/28/2021 5:57 AM Age: 76 years old Clinical indication: Other: Post-op cv surgery TECHNIQUE: Imaging protocol: Radiologic exam of the chest. Views: 1view. COMPARISON: CR XR CHEST 1V 12/27/2021 5:54 [...] to severely enlarged. Bones/joints: Diffusely decreased bone density.Generalized bony degenerative changes. Sternotomy wires, hardware is demonstrated. Soft tissues: This study is limited by patient's body habitus. Other findings: Limited study with patient rotation. IMPRESSION: 1. Moderate to severe enlarged cardiac silhouette. 2. Severe alveolar pulmonary edema versus pneumonia. Progression. 3. Moderate bilateral pleural effusions. at 08 Reported and signed by: Leonard Escobar M.D.CC: Jeffry Hsu MD; Abdiaziz Fuchs MD; Solange Mohamud MD; Colt Vail MD Technologist: Xenia Bashir, RT(R); Shell Min RT(R) Trnscrd Date/Time/By: 12/28/2021 (08) : By: [email or web address] Orig Print D/T: S: 12/28/2021 (0836) PAGE 1 Signed ReportGLUCOSE [id number] 23:17:00 Test Item Value Reference Range Interpretation Comments GLUCOSE BEDSIDE (test 95 MG/DL 70-110 [facility] med by certified code = GLUBED) 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 [facility] POC ARTERIAL BLOOD [id number] 23:14:00 Test Item Value Reference Range Interpretation Comments POC ARTERIAL BLOOD GAS PH (test 7.378 7.35-7.45 N code = POCPHA) POC ARTERIAL BLOOD GAS PCO2 (test 71.2 mmHg 35.0-45 HH code = AFORFT0U) POC TCO2 ARTERIAL (test code = 44.1 POCTCO2) POC ARTERIAL BLOOD GAS PO2 (test 86.3 mmHg 80-100.0 N code = UCMNI7X) POC HCO3 ARTERIAL (test code = 41.9 MMOL/L 22.0-26.0 HH DUIDFO6D) POC BASE EXCESS (test code = 16.7 MMOL/L -4.0-4.0 H POCBEA) POC O2 SATURATION (test code = 95.7 % 90-100 N POCO2S) ABG DELIVERY (test code = MAAME) Cannula ABG TEMPERATURE (test code = 98.6 F TEMPA) ABG SITE (test code = SITEA) Art Line BASIC METABOLIC [id number] 23:14:00 Test Item Value Reference Range Interpretation [...] = POCGLU) 86 MG/DL 70-110 N HEMOGLOBIN [id number] 23:14:00 Test Item Value Reference Range Interpretation Comments HEMOGLOBIN ABG (test code = HGB/ABG) 8.2 G/DL 11.0-15.0 L [id number] 23:14:00 Test Item Value Reference Range Interpretation Comments HEMATOCRIT (test code = HCT/ABG) 24 % 33.0-45.0 L POC LACTIC [id number] 23:14:00 Test Item Value Reference Range Interpretation Comments POC LACTIC ACID (test code = 0.7 mmol/l 0.9-1.7 L POCLAC) GLUCOSE [id number] 19:13:00 Test Item Value Reference Range Interpretation Comments GLUCOSE BEDSIDE (test 155 MG/DL 70-110 H Perfor med by certified code = GLUBED) 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 [facility] FLUID [id number] 17:44:00 Test Item Value Reference Range Interpretation Comments FLUID CO2 (test code = CO2BF) 38 21-33 H FLUID [id number] 17:44:00 Test Item Value Reference Range Interpretation Comments FLUID CO2 (test code = CO2BF) 38 21-33 H GLUCOSE [id number] 17:18:00 Test Item Value Reference Range Interpretation Comments GLUCOSE BEDSIDE (test 116 MG/DL 70-110 H Perfor med by certified code = GLUBED) 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 [facility] BASIC METABOLIC [id number] 16:33:00 Test Item Value Reference Range Interpretation [...] code = 9.6 mg/dL 8.0-10.5 N CA) [id number] 16:33:00 Test Item Value Reference Range Interpretation Comments MAGNESIUM (test code = MAG) 2.30 mg/dL 1.80-2.40 N GLUCOSE [id number] 15:13:00 Test Item Value Reference Range Interpretation Comments GLUCOSE BEDSIDE (test 198 MG/DL 70-110 H Perfor med by certified code = GLUBED) 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 [facility] GLUCOSE [id number] 15:13:00 Test Item Value Reference Range Interpretation Comments GLUCOSE BEDSIDE (test 159 MG/DL 70-110 H Perfor med by certified code = GLUBED) 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 [facility] BASIC METABOLIC [id number] 15:01:00 Test Item Value Reference Range Interpretation [...] = 9.8 mg/dL 8.0-10.5 N CA) GLUCOSE [id number] 13:01:00 Test Item Value Reference Range Interpretation Comments GLUCOSE BEDSIDE (test 166 MG/DL 70-110 H [facility] by certified code = GLUBED) 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 [facility] GLUCOSE [id number] 12:00:00 Test Item Value Reference Range Interpretation Comments GLUCOSE BEDSIDE (test 149 MG/DL 70-110 H [facility] by certified code = GLUBED) 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 [facility] BASIC METABOLIC [id number] 11:08:00 Test Item Value Reference Range Interpretation [...] = 10.0 mg/dL 8.0-10.5 N CA) GLUCOSE [id number] 10:29:00 Test Item Value Reference Range Interpretation Comments GLUCOSE BEDSIDE (test 183 MG/DL 70-110 H [facility] med by certified code = GLUBED) 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 [facility] POC ARTERIAL BLOOD [id number] 10:20:00 Test Item Value Reference Range Interpretation Comments POC ARTERIAL BLOOD GAS PH (test 7.430 7.35-7.45 N code = POCPHA) POC ARTERIAL BLOOD GAS PCO2 (test 63.2 mmHg 35.0-45 HH code = WCLCFD5D) POC TCO2 ARTERIAL (test code = 44.1 POCTCO2) POC ARTERIAL BLOOD GAS PO2 (test 73.3 mmHg 80-100.0 L code = JTEDG3J) POC HCO3 ARTERIAL (test code = 42.1 MMOL/L 22.0-26.0 HH KIHLTI3G) POC BASE EXCESS (test code = 17.7 MMOL/L -4.0-4.0 H POCBEA) POC O2 SATURATION (test code = 94.5 % 90-100 N POCO2S) ABG DELIVERY (test code = MAAME) Cannula ABG TEMPERATURE (test code = 98 F TEMPA) ABG SITE (test code = SITEA) Art Line MARTIN'S TEST (test code = ALLENS) N/A BASIC METABOLIC [id number] 10:20:00 Test Item Value Reference Range Interpretation [...] = POCGLU) 184 MG/DL 70-110 H HEMOGLOBIN [id number] 10:20:00 Test Item Value Reference Range Interpretation Comments HEMOGLOBIN ABG (test code = HGB/ABG) 8.5 G/DL 11.0-15.0 L [id number] 10:20:00 Test Item Value Reference Range Interpretation Comments HEMATOCRIT (test code = HCT/ABG) 25 % 33.0-45.0 L POC LACTIC [id number] 10:20:00 Test Item Value Reference Range Interpretation Comments POC LACTIC ACID (test code = 1.2 mmol/l 0.9-1.7 N POCLAC) GLUCOSE [id number] 09:11:00 Test Item Value Reference Range Interpretation Comments GLUCOSE BEDSIDE (test 235 MG/DL 70-110 H Perfor med by certified code = GLUBED) 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 [facility] GLUCOSE [id number] 08:15:00 Test Item Value Reference Range Interpretation Comments GLUCOSE BEDSIDE (test 259 MG/DL 70-110 H Perfor med by certified code = GLUBED) 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 [facility] GLUCOSE [id number] 05:53:00 Test Item Value Reference Range Interpretation Comments GLUCOSE BEDSIDE (test 203 MG/DL 70-110 H Perfor med by certified code = GLUBED) 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 [facility] CBC W/AUTO [id number] 04:38:00 Test Item Value Reference Range Interpretation [...] (test code NO = MDIFF) BASIC METABOLIC [id number] 04:19:00 Test Item Value Reference Range Interpretation [...] code = 9.9 mg/dL 8.0-10.5 N CA) [id number] 04:19:00 Test Item Value Reference Range Interpretation Comments MAGNESIUM (test code = MAG) 2.20 mg/dL 1.80-2.40 N POC ARTERIAL BLOOD [id number] 02:45:00 Test Item Value Reference Range Interpretation Comments POC ARTERIAL BLOOD GAS PH (test 7.388 7.35-7.45 N code = POCPHA) POC ARTERIAL BLOOD GAS PCO2 70.2 mmHg 35.0-45 HH (test code = CSPDQX8N) POC TCO2 ARTERIAL (test code = 44.5 POCTCO2) POC ARTERIAL BLOOD GAS PO2 (test 85.6 mmHg 80-100.0 N code = FEADB0M) POC HCO3 ARTERIAL (test code = 42.4 MMOL/L 22.0-26.0 HH ZBWYFM6F) POC BASE EXCESS (test code = 17.4 MMOL/L -4.0-4.0 H POCBEA) POC O2 SATURATION (test code = 95.8 % 90-100 N POCO2S) FIO2 (test code = FIO2A) 50 % PaO2/FiO2 (test code = JPF4MVK7) 171.20 mm/Hg ABG DELIVERY (test code = MAAME) BiPAP ABG PEEP (test code = PEEPA) 5 cmH2O ABG TEMPERATURE (test code = 98.4 F TEMPA) ABG SITE (test code = SITEA) Art Line BASIC METABOLIC [id number] 02:45:00 Test Item Value Reference Range Interpretation [...] = POCGLU) 95 MG/DL 70-110 N HEMOGLOBIN [id number] 02:45:00 Test Item Value Reference Range Interpretation Comments HEMOGLOBIN ABG (test code = HGB/ABG) 8.2 G/DL 11.0-15.0 L [id number] 02:45:00 Test Item Value Reference Range Interpretation Comments HEMATOCRIT (test code = HCT/ABG) 24 % 33.0-45.0 L POC LACTIC [id number] 02:45:00 Test Item Value Reference Range Interpretation Comments POC LACTIC ACID (test code = 0.6 mmol/l 0.9-1.7 L POCLAC) GLUCOSE [id number] 02:04:00 Test Item Value Reference Range Interpretation Comments GLUCOSE BEDSIDE (test 86 MG/DL 70-110 N Perfor med by certified code = GLUBED) 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 [facility] GLUCOSE [id number] 00:36:00 Test Item Value Reference Range Interpretation Comments GLUCOSE BEDSIDE (test 72 MG/DL 70-110 N Perfor med by certified code = GLUBED) 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 [facility] - XR CHEST 1 [id number] 00:00[facility]00 [facility] 1945 Sex: F FAX:Jeffry Pennington MD [phone] [place]: St: ADM FAX: Abdiaziz Christiansen MD [phone] FAX: Solange Sawyer MD [phone] FAX: Colt Aguillon MD [phone] Name: SAÚL GILES [facility] [place] : 1945 Age/S: 76/F [address] [place] [address] Unit #: [id number] Loc: G.[address] [place] [address] Phys: Solange Mohamud MD Acct: [id number] Dis Date: Status: ADM IN PHONE #: [phone] Exam Date: 12/27/2021 0732FAX #: [phone] Reason: S/P CABG EXAMS: CPT CODE: [id number] XR CHEST 1 V [id number] PROCEDURE INFORMATION: Exam: XR Chest Exam date and time: 12/27/2021 5:54 AM Age: 76 years old Clinical indication: Other: S/P cabg TECHNIQUE: Imaging protocol: Radiologic exam of the chest. Views: 1 view. COMPARISON: CR XR CHEST 1V 12/26/2021 5:19 AM FINDINGS: Tubes, catheters and devices: Stable left multi lead pacemaker with no visible complication. Lungs: Persistent bilateral alveolar airspace disease. Pleural spaces: Stable to slightly improved bilateral layering pleural effusions. Heart/Mediastinum: Enlarged cardiac silhouette with median sternotomy changes in keeping with recent surgical history. Bones/joint s: Severe thoracic spondylosis and right glenohumeral joint [...] Min, RT(R); Debbie Fuentes RT(R) Trnscrd Date/Time/By: 12/27/2021 (1005) : By: [email or web address] Orig Print D/T: S:12/27/2021 (1005) PAGE 1 Signed ReportGLUCOSE [id number] 22:21:00 Test Item Value Reference Range Interpretation Comments GLUCOSE BEDSIDE (test 148 MG/DL 70-110 H Perfor med by certified code = GLUBED) 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 [facility] GLUCOSE [id number] 20:05:00 Test Item Value Reference Range Interpretation Comments GLUCOSE BEDSIDE (test 232 MG/DL 70-110 H Perfor med by certified code = GLUBED) 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 [facility] BASIC METABOLIC [id number] 18:16:00 Test Item Value Reference Range Interpretation [...] code = 9.8 mg/dL 8.0-10.5 N CA) [id number] 18:16:00 Test Item Value Reference Range Interpretation Comments PHOSPHOROUS (test code = PHOS) 3.0 MG/DL 2.5-4.9 N [id number] 18:16:00 Test Item Value Reference Range Interpretation Comments MAGNESIUM (test code = MAG) 2.30 mg/dL 1.80-2.40 N GLUCOSE [id number] 17:47:00 Test Item Value Reference Range Interpretation Comments GLUCOSE BEDSIDE (test 283 MG/DL 70-110 H Perfor med by certified code = GLUBED) 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 [facility] BASIC METABOLIC [id number] 13:10:00 Test Item Value Reference Range Interpretation [...] code = 10.1 mg/dL 8.0-10.5 N CA) [id number] 13:10:00 Test Item Value Reference Range Interpretation Comments MAGNESIUM (test code = MAG) 2.43 mg/dL 1.80-2.40 H CALCIUM [id number] 13:10:00 Test Item Value Reference Range Interpretation Comments CALCIUM IONIZED (test code = TYREE) 1.22 MMOL/L 1.09-1.30 N POC ARTERIAL BLOOD [id number] 12:53:00 Test Item Value Reference Range Interpretation Comments POC ARTERIAL BLOOD GAS PH (test 7.356 7.35-7.45 N code = POCPHA) POC ARTERIAL BLOOD GAS PCO2 (test 69.2 mmHg 35.0-45 HH code = [id number]) POC TCO2 ARTERIAL (test code = 40.9 POCTCO2) POC ARTERIAL BLOOD GAS PO2 (test 128.4 mmHg 80-100.0 H code = RTKCS6V) POC HCO3 ARTERIAL (test code = 38.8 MMOL/L 22.0-26.0 HH [id number]) POC BASE EXCESS (test code = 13.2 MMOL/L -4.0-4.0 H POCBEA) POC O2 SATURATION (test code = 98.6 % 90-100 N POCO2S) ABG DELIVERY (test code = MAAME) HFNC ABG SITE (test code = SITEA) Art Line BASIC METABOLIC [id number] 12:53:00 Test Item Value Reference Range Interpretation [...] = POCGLU) 203 MG/DL 70-110 H HEMOGLOBIN [id number] 12:53:00 Test Item Value Reference Range Interpretation Comments HEMOGLOBIN ABG (test code = HGB/ABG) 8.6 G/DL 11.0-15.0 L [id number] 12:53:00 Test Item Value Reference Range Interpretation Comments HEMATOCRIT (test code = HCT/ABG) 25 % 33.0-45.0 L POC LACTIC [id number] 12:53:00 Test Item Value Reference Range Interpretation Comments POC LACTIC ACID (test code = 0.7 mmol/l 0.9-1.7 L POCLAC) POC ARTERIAL BLOOD [id number] 12:05:00 Test Item Value Reference Range Interpretation Comments POC ARTERIAL BLOOD GAS PH (test 7.364 7.35-7.45 N code = POCPHA) POC ARTERIAL BLOOD GAS PCO2 68.3 mmHg 35.0-45 HH (test code = XBAHTT5Y) POC TCO2 ARTERIAL (test code = 41.1 POCTCO2) POC ARTERIAL BLOOD GAS PO2 (test 100.9 mmHg 80-100.0 H code = JDWNT5O) POC HCO3 ARTERIAL (test code = 39.0 MMOL/L 22.0-26.0 HH WXDNNU9T) POC BASE EXCESS (test code = 13.6 MMOL/L -4.0-4.0 H POCBEA) POC O2 SATURATION (test code = 97.2 % 90-100 N POCO2S) FIO2 (test code = FIO2A) 50 % PaO2/FiO2 (test code = XNV2ISA3) 201.80 mm/Hg ABG DELIVERY (test code = MAAME) BiPAP ABG SITE (test code = SITEA) Art Line BASIC METABOLIC [id number] 12:05:00 Test Item Value Reference Range Interpretation [...] = POCGLU) 194 MG/DL 70-110 H HEMOGLOBIN [id number] 12:05:00 Test Item Value Reference Range Interpretation Comments HEMOGLOBIN ABG (test code = HGB/ABG) 7.9 G/DL 11.0-15.0 L [id number] 12:05:00 Test Item Value Reference Range Interpretation Comments HEMATOCRIT (test code = HCT/ABG) 23 % 33.0-45.0 L POC LACTIC [id number] 12:05:00 Test Item Value Reference Range Interpretation Comments POC LACTIC ACID (test code = 0.6 mmol/l 0.9-1.7 L POCLAC) GLUCOSE [id number] 09:39:00 Test Item Value Reference Range Interpretation Comments GLUCOSE BEDSIDE (test 185 MG/DL 70-110 H Perfor med by certified code = GLUBED) 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 [facility] GLUCOSE [id number] 05:54:00 Test Item Value Reference Range Interpretation Comments GLUCOSE BEDSIDE (test 168 MG/DL 70-110 H Perfor med by certified code = GLUBED) 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 [facility] BASIC METABOLIC [id number] 04:24:00 Test Item Value Reference Range Interpretation [...] code = 10.4 mg/dL 8.0-10.5 N CA) [id number] 04:24:00 Test Item Value Reference Range Interpretation Comments PHOSPHOROUS (test code = PHOS) 2.8 MG/DL 2.5-4.9 N [id number] 04:24:00 Test Item Value Reference Range Interpretation Comments MAGNESIUM (test code = MAG) 2.34 mg/dL 1.80-2.40 N CBC W/AUTO [id number] 04:03:00 Test Item Value Reference Range Interpretation [...] code NO = MDIFF) POC ARTERIAL BLOOD [id number] 03:32:00 Test Item Value Reference Range Interpretation Comments POC ARTERIAL BLOOD GAS PH (test 7.421 7.35-7.45 N code = POCPHA) POC ARTERIAL BLOOD GAS PCO2 63.7 mmHg 35.0-45 HH (test code = IWTZFS8H) POC TCO2 ARTERIAL (test code = 43.5 POCTCO2) POC ARTERIAL BLOOD GAS PO2 (test 89.6 mmHg 80-100.0 N code = LTSQQ0Q) POC HCO3 ARTERIAL (test code = 41.5 MMOL/L 22.0-26.0 HH GQHFCP6C) POC BASE EXCESS (test code = 17.0 MMOL/L -4.0-4.0 H POCBEA) POC O2 SATURATION (test code = 96.8 % 90-100 N POCO2S) FIO2 (test code = FIO2A) 50 % PaO2/FiO2 (test code = GYH6XNC0) 179.20 mm/Hg ABG DELIVERY (test code = MAAME) BiPAP ABG VENT RESP RATE (test code = 26 /MIN RRA) ABG TEMPERATURE (test code = 98.1 F TEMPA) ABG SITE (test code = SITEA) L Radial MARTIN'S TEST (test code = N/A ALLENS) BASIC METABOLIC [id number] 03:32:00 Test Item Value Reference Range Interpretation [...] = POCGLU) 189 MG/DL 70-110 H HEMOGLOBIN [id number] 03:32:00 Test Item Value Reference Range Interpretation Comments HEMOGLOBIN ABG (test code = HGB/ABG) 8.6 G/DL 11.0-15.0 L [id number] 03:32:00 Test Item Value Reference Range Interpretation Comments HEMATOCRIT (test code = HCT/ABG) 25 % 33.0-45.0 L POC LACTIC [id number] 03:32:00 Test Item Value Reference Range Interpretation Comments POC LACTIC ACID (test code = 0.6 mmol/l 0.9-1.7 L POCLAC) GLUCOSE [id number] 00:03:00 Test Item Value Reference Range Interpretation Comments GLUCOSE BEDSIDE (test 181 MG/DL 70-110 H Perfor med by certified code = GLUBED) 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 [facility] - XR CHEST 1 [id number] [facility]:00[facility]00 [facility] 1945 Sex: F FAX:Jeffry Pennington MD [phone] [place]: GC St: ADM FAX: Abdiaziz Christiansen MD [phone] FAX: Solange Sawyer MD [phone] FAX: Colt Aguillon MD [phone] Name: SAÚL GILES [facility] : 1945 Age/S: 76/F [address] [place] [address] Unit #: [id number] Loc: [address] [address] Phys: Solange Mohamud MD Acct: [id number] Dis Date: Status: ADM IN PHONE #: [phone] Exam Date: 12/26/2021611 FAX #: [phone] Reason: DAILY EVAL POST OP MVR EXAMS: CPT CODE: [id number] XR CHEST 1 V 54328 PROCEDURE INFORMATION: Exam: XR Chest Exam date [...] pulmonary opacification. 4. There are suspected bilateral ple ural effusions. No pneumothorax is visible. at 0643 Reported and signed by: Bill Kern M.D. CC: Jeffry Hsu MD; Abdiaziz Fuchs MD; Solange Mohamud MD; Colt Vail MD Technologist: RT Joe(R) Trnscrd Date/Time/By: 12/26/2021 (0643) : By: [email or web address] Orig Print D/T: S: 12/26/2021 (0663) PAGE 1 Signed ReportBASIC METABOLIC [id number] 20:47:00 Test Item Value Reference Range Interpretation [...] code = 10.2 mg/dL 8.0-10.5 N CA) [id number] 20:47:00 Test Item Value Reference Range Interpretation Comments MAGNESIUM (test code = MAG) 2.16 mg/dL 1.80-2.40 N POC ARTERIAL BLOOD [id number] 20:19:00 Test Item Value Reference Range Interpretation Comments POC ARTERIAL BLOOD GAS PH (test 7.378 7.35-7.45 N code = POCPHA) POC ARTERIAL BLOOD GAS PCO2 (test 64.8 mmHg 35.0-45 HH code = ZOXEFX2K) POC TCO2 ARTERIAL (test code = 40.3 POCTCO2) POC ARTERIAL BLOOD GAS PO2 (test 86.4 mmHg 80-100.0 N code = SWKNS4L) POC HCO3 ARTERIAL (test code = 38.3 MMOL/L 22.0-26.0 HH PSDEWA7C) POC BASE EXCESS (test code = 13.1 MMOL/L -4.0-4.0 H POCBEA) POC O2 SATURATION (test code = 96.1 % 90-100 N POCO2S) ABG DELIVERY (test code = MAAME) HFNC ABG TEMPERATURE (test code = 97.9 F TEMPA) ABG SITE (test code = SITEA) Art Line BASIC METABOLIC [id number] 20:19:00 Test Item Value Reference Range Interpretation [...] = POCGLU) 221 MG/DL 70-110 H HEMOGLOBIN [id number] 20:19:00 Test Item Value Reference Range Interpretation Comments HEMOGLOBIN ABG (test code = HGB/ABG) 8.2 G/DL 11.0-15.0 L [id number] 20:19:00 Test Item Value Reference Range Interpretation Comments HEMATOCRIT (test code = HCT/ABG) 24 % 33.0-45.0 L POC LACTIC [id number] 20:19:00 Test Item Value Reference Range Interpretation Comments POC LACTIC ACID (test code = 0.7 mmol/l 0.9-1.7 L POCLAC) GLUCOSE [id number] 18:32:00 Test Item Value Reference Range Interpretation Comments GLUCOSE BEDSIDE (test 235 MG/DL 70-110 H Perfor med by certified code = GLUBED) 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 [facility] BASIC METABOLIC [id number] 16:07:00 Test Item Value Reference Range Interpretation [...] code = 10.6 mg/dL 8.0-10.5 H CA) [id number] 16:07:00 Test Item Value Reference Range Interpretation Comments PHOSPHOROUS (test code = PHOS) 2.9 MG/DL 2.5-4.9 N [id number] 16:07:00 Test Item Value Reference Range Interpretation Comments MAGNESIUM (test code = MAG) 2.26 mg/dL 1.80-2.40 N GLUCOSE [id number] 15:25:00 Test Item Value Reference Range Interpretation Comments GLUCOSE BEDSIDE (test 149 MG/DL 70-110 H Perfor med by certified code = GLUBED) 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 [facility] POC ARTERIAL BLOOD [id number] 15:12:00 Test Item Value Reference Range Interpretation Comments POC ARTERIAL BLOOD GAS PH (test 7.364 7.35-7.45 N code = POCPHA) POC ARTERIAL BLOOD GAS PCO2 (test 72.3 mmHg 35.0-45 HH code = RSMGKG1G) POC TCO2 ARTERIAL (test code = 43.4 POCTCO2) POC ARTERIAL BLOOD GAS PO2 (test 82.1 mmHg 80-100.0 N code = KLPMJ8S) POC HCO3 ARTERIAL (test code = 41.2 MMOL/L 22.0-26.0 HH VCWXJQ5H) POC BASE EXCESS (test code = 15.8 MMOL/L -4.0-4.0 H POCBEA) POC O2 SATURATION (test code = 94.9 % 90-100 N POCO2S) ABG DELIVERY (test code = MAAME) HFJV ABG SITE (test code = SITEA) Art Line BASIC METABOLIC [id number] 15:12:00 Test Item Value Reference Range Interpretation [...] = POCGLU) 161 MG/DL 70-110 H HEMOGLOBIN [id number] 15:12:00 Test Item Value Reference Range Interpretation Comments HEMOGLOBIN ABG (test code = HGB/ABG) 8.5 G/DL 11.0-15.0 L [id number] 15:12:00 Test Item Value Reference Range Interpretation Comments HEMATOCRIT (test code = HCT/ABG) 25 % 33.0-45.0 L POC LACTIC [id number] 15:12:00 Test Item Value Reference Range Interpretation Comments POC LACTIC ACID (test code = 0.7 mmol/l 0.9-1.7 L POCLAC) BASIC METABOLIC [id number] 12:25:00 Test Item Value Reference Range Interpretation [...] code = 10.3 mg/dL 8.0-10.5 N CA) [id number] 12:25:00 Test Item Value Reference Range Interpretation Comments PHOSPHOROUS (test code = PHOS) 2.8 MG/DL 2.5-4.9 [id number] 12:25:00 Test Item Value Reference Range Interpretation Comments MAGNESIUM (test code = MAG) 2.29 mg/dL 1.80-2.40 N POC ARTERIAL BLOOD [id number] 11:53:00 Test Item Value Reference Range Interpretation Comments POC ARTERIAL BLOOD GAS PH (test 7.378 7.35-7.45 N code = POCPHA) POC ARTERIAL BLOOD GAS PCO2 67.2 mmHg 35.0-45 HH (test code = IBHETQ4G) POC TCO2 ARTERIAL (test code = 41.6 POCTCO2) POC ARTERIAL BLOOD GAS PO2 (test 93.9 mmHg 80-100.0 N code = AACNX8F) POC HCO3 ARTERIAL (test code = 39.6 MMOL/L 22.0-26.0 HH IUCTFK3C) POC BASE EXCESS (test code = 14.4 MMOL/L -4.0-4.0 H POCBEA) POC O2 SATURATION (test code = 96.7 % 90-100 N POCO2S) FIO2 (test code = FIO2A) 45 % PaO2/FiO2 (test code = BSQ0EBR8) 208.66 mm/Hg ABG DELIVERY (test code = MAAME) BiPAP ABG SITE (test code = SITEA) Art Line BASIC METABOLIC [id number] 11:53:00 Test Item Value Reference Range Interpretation [...] = POCGLU) 147 MG/DL 70-110 H HEMOGLOBIN [id number] 11:53:00 Test Item Value Reference Range Interpretation Comments HEMOGLOBIN ABG (test code = HGB/ABG) 8.2 G/DL 11.0-15.0 L [id number] 11:53:00 Test Item Value Reference Range Interpretation Comments HEMATOCRIT (test code = HCT/ABG) 24 % 33.0-45.0 L POC LACTIC [id number] 11:53:00 Test Item Value Reference Range Interpretation Comments POC LACTIC ACID (test code = 0.6 mmol/l 0.9-1.7 L POCLAC) POC ARTERIAL BLOOD [id number] 10:55:00 Test Item Value Reference Range Interpretation Comments POC ARTERIAL BLOOD GAS PH (test 7.362 7.35-7.45 N code = POCPHA) POC ARTERIAL BLOOD GAS PCO2 65.6 mmHg 35.0-45 HH (test code = DMFXFP5S) POC TCO2 ARTERIAL (test code = 39.2 POCTCO2) POC ARTERIAL BLOOD GAS PO2 (test 93.1 mmHg 80-100.0 N code = PEGRQ5H) POC HCO3 ARTERIAL (test code = 37.2 MMOL/L 22.0-26.0 HH GXHENJ2U) POC BASE EXCESS (test code = 11.8 MMOL/L -4.0-4.0 H POCBEA) POC O2 SATURATION (test code = 96.5 % 90-100 N POCO2S) FIO2 (test code = FIO2A) 45 % PaO2/FiO2 (test code = RHZ2CLN9) 206.88 mm/Hg ABG DELIVERY (test code = MAAME) BiPAP ABG SITE (test code = SITEA) Art Line BASIC METABOLIC [id number] 10:55:00 Test Item Value Reference Range Interpretation [...] = POCGLU) 162 MG/DL 70-110 H HEMOGLOBIN [id number] 10:55:00 Test Item Value Reference Range Interpretation Comments HEMOGLOBIN ABG (test code = HGB/ABG) 8.2 G/DL 11.0-15.0 L [id number] 10:55:00 Test Item Value Reference Range Interpretation Comments HEMATOCRIT (test code = HCT/ABG) 24 % 33.0-45.0 L POC LACTIC [id number] 10:55:00 Test Item Value Reference Range Interpretation Comments POC LACTIC ACID (test code = 0.6 mmol/l 0.9-1.7 L POCLAC) POC ARTERIAL BLOOD [id number] 10:06:00 Test Item Value Reference Range Interpretation Comments POC ARTERIAL BLOOD GAS PH (test 7.348 7.35-7.45 L code = POCPHA) POC ARTERIAL BLOOD GAS PCO2 71.0 mmHg 35.0-45 HH (test code = ZSITGH7A) POC TCO2 ARTERIAL (test code = 41.2 POCTCO2) POC ARTERIAL BLOOD GAS PO2 (test 92.3 mmHg 80-100.0 N code = MDEPX0L) POC HCO3 ARTERIAL (test code = 39.0 MMOL/L 22.0-26.0 HH YTANAL3O) POC BASE EXCESS (test code = 13.4 MMOL/L -4.0-4.0 H POCBEA) POC O2 SATURATION (test code = 96.2 % 90-100 N POCO2S) FIO2 (test code = FIO2A) 75 % PaO2/FiO2 (test code = KWS9YPX7) 123.06 mm/Hg ABG DELIVERY (test code = MAAME) HFNC ABG SITE (test code = SITEA) Art Line BASIC METABOLIC [id number] 10:06:00 Test Item Value Reference Range Interpretation [...] = POCGLU) 192 MG/DL 70-110 H HEMOGLOBIN [id number] 10:06:00 Test Item Value Reference Range Interpretation Comments HEMOGLOBIN ABG (test code = HGB/ABG) 9.0 G/DL 11.0-15.0 L [id number] 10:06:00 Test Item Value Reference Range Interpretation Comments HEMATOCRIT (test code = HCT/ABG) 26 % 33.0-45.0 L POC LACTIC [id number] 10:06:00 Test Item Value Reference Range Interpretation Comments POC LACTIC ACID (test code = 0.7 mmol/l 0.9-1.7 L POCLAC) GLUCOSE [id number] 07:57:00 Test Item Value Reference Range Interpretation Comments GLUCOSE BEDSIDE (test 229 MG/DL 70-110 H [facility] med by certified code = GLUBED) 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 [facility] COMPREHENSIVE METABOLIC [id number] 04:18:00 Test Item Value Reference Range Interpretation [...] 20-125 N TOTAL (test code = ALKP) [id number] 04:18:00 Test Item Value Reference Range Interpretation Comments PHOSPHOROUS (test code = PHOS) 1.0 MG/DL 2.5-4.9 L [id number] 04:18:00 Test Item Value Reference Range Interpretation Comments MAGNESIUM (test code = MAG) 2.25 mg/dL 1.80-2.40 N CBC W/AUTO [id number] 04:04:00 Test Item Value Reference Range Interpretation [...] code NO = MDIFF) POC ARTERIAL BLOOD [id number] 03:55:00 Test Item Value Reference Range Interpretation Comments POC ARTERIAL BLOOD GAS PH (test 7.393 7.35-7.45 N code = POCPHA) POC ARTERIAL BLOOD GAS PCO2 (test 67.7 mmHg 35.0-45 HH code = WUCPML6Q) POC TCO2 ARTERIAL (test code = 43.5 POCTCO2) POC ARTERIAL BLOOD GAS PO2 (test 73.0 mmHg 80-100.0 L code = MPBNU4Q) POC HCO3 ARTERIAL (test code = 41.4 MMOL/L 22.0-26.0 HH WETJEJ5D) POC BASE EXCESS (test code = 16.4 MMOL/L -4.0-4.0 H POCBEA) POC O2 SATURATION (test code = 93.8 % 90-100 N POCO2S) FIO2 (test code = FIO2A) 75 % PaO2/FiO2 (test code = TWW6JBX0) 97.33 mm/Hg ABG DELIVERY (test code = MAAME) HFNC ABG TEMPERATURE (test code = 98 F TEMPA) ABG SITE (test code = SITEA) Art Line MARTIN'S TEST (test code = ALLENS) N/A BASIC METABOLIC [id number] 03:55:00 Test Item Value Reference Range Interpretation [...] = POCGLU) 236 MG/DL 70-110 H HEMOGLOBIN [id number] 03:55:00 Test Item Value Reference Range Interpretation Comments HEMOGLOBIN ABG (test code = HGB/ABG) 8.5 G/DL 11.0-15.0 L [id number] 03:55:00 Test Item Value Reference Range Interpretation Comments HEMATOCRIT (test code = HCT/ABG) 25 % 33.0-45.0 L POC LACTIC [id number] 03:55:00 Test Item Value Reference Range Interpretation Comments POC LACTIC ACID (test code = 0.6 mmol/l 0.9-1.7 L POCLAC) GLUCOSE [id number] 02:46:00 Test Item Value Reference Range Interpretation Comments GLUCOSE BEDSIDE (test 209 MG/DL 70-110 H Perfor med by certified code = GLUBED) 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 [facility] GLUCOSE [id number] 00:20:00 Test Item Value Reference Range Interpretation Comments GLUCOSE BEDSIDE (test 127 MG/DL 70-110 H Perfor med by certified code = GLUBED) 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 [facility] - XR CHEST 1 [id number] 00:00[facility]00 [facility] 1945 Sex: F FAX:Jeffry Pennington MD [phone] [place]: St: ADM FAX: Abdiaziz Christiansen MD [phone] FAX: René Blancas [phone] FAX: Colt Aguillon MD [phone] Name: SAÚL GILES [facility] : 1945 Age/S: 76/F [address] [place] [address] Unit #: [id number] Loc: G.220[address] [place] [address] Phys: René Villareal MD Acct: [id number] Dis Date: Status: ADM IN PHONE #: [phone] Exam Date: FAX #: [phone] Reason: Cardiac Surgery Post Op EXAMS: CPT CODE: [id number] XR CHEST 1 V 60686 PROCEDURE INFORMATION: Exam: XR Chest Exam date and time: 12/25/2021 5:34 AM Age: 76 years old Clinical indication: Other: Cardiac surgery post op TECHNIQUE: Imaging protocol: Radiologic exam of the chest. Views: 1 view. COMPARISON: CR XR CHEST 1V 12/24/2021 4:53 AM FINDINGS: Tubes, catheters and dev ices: Left pectoral implantable cardiac device. Right neck [...] CC: Jeffry Hsu MD; Abdiaziz Fuchs MD; Reén Villarael MD; Colt Vail MD Technologist: RT Caroline(R) Trnscrd Date/Time/By: 12/25/2021 (0755) : By: [email or web address] Orig Print D/T: S: 12/25/2021 (075) PAGE 1 Signed ReportGLUCOSE [id number] 22:24:00 Test Item Value Reference Range Interpretation Comments GLUCOSE BEDSIDE (test 74 MG/DL 70-110 N Perfor med by certified code = GLUBED) 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 [facility] BASIC METABOLIC [id number] 21:02:00 Test Item Value Reference Range Interpretation [...] mg/dL 8.0-10.5 N CA) POC ARTERIAL BLOOD [id number] 20:05:00 Test Item Value Reference Range Interpretation Comments POC ARTERIAL BLOOD GAS PH (test 7.358 7.35-7.45 N code = POCPHA) POC ARTERIAL BLOOD GAS PCO2 61.0 mmHg 35.0-45 HH (test code = ATULAD9R) POC TCO2 ARTERIAL (test code = 36.3 POCTCO2) POC ARTERIAL BLOOD GAS PO2 (test 89.1 mmHg 80-100.0 N code = HIVIZ6N) POC HCO3 ARTERIAL (test code = 34.4 MMOL/L 22.0-26.0 HH EPJGTO0T) POC BASE EXCESS (test code = 8.9 MMOL/L -4.0-4.0 H POCBEA) POC O2 SATURATION (test code = 96.2 % 90-100 N POCO2S) FIO2 (test code = FIO2A) 50 % PaO2/FiO2 (test code = RQI9KTH6) 178.20 mm/Hg ABG DELIVERY (test code = [...] (test code = Positive ALLENS) BASIC METABOLIC [id number] 20:05:00 Test Item Value Reference Range Interpretation [...] = POCGLU) 110 MG/DL 70-110 N HEMOGLOBIN [id number] 20:05:00 Test Item Value Reference Range Interpretation Comments HEMOGLOBIN ABG (test code = HGB/ABG) 7.2 G/DL 11.0-15.0 L [id number] 20:05:00 Test Item Value Reference Range Interpretation Comments HEMATOCRIT (test code = HCT/ABG) 21 % 33.0-45.0 L POC LACTIC [id number] 20:05:00 Test Item Value Reference Range Interpretation Comments POC LACTIC ACID (test code = 0.6 mmol/l 0.9-1.7 L POCLAC) GLUCOSE [id number] 18:28:00 Test Item Value Reference Range Interpretation Comments GLUCOSE BEDSIDE (test 139 MG/DL 70-110 H Perfor med by certified code = GLUBED) 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 [facility] POC ARTERIAL BLOOD [id number] 18:12:00 Test Item Value Reference Range Interpretation Comments POC ARTERIAL BLOOD GAS PH (test 7.381 7.35-7.45 N code = POCPHA) POC ARTERIAL BLOOD GAS PCO2 64.5 mmHg 35.0-45 HH (test code = FHUNDO2K) POC TCO2 ARTERIAL (test code = 40.3 POCTCO2) POC ARTERIAL BLOOD GAS PO2 (test 81.9 mmHg 80-100.0 N code = FHYMX4T) POC HCO3 ARTERIAL (test code = 38.3 MMOL/L 22.0-26.0 HH CPPJPP9J) POC BASE EXCESS (test code = 13.1 MMOL/L -4.0-4.0 H POCBEA) POC O2 SATURATION (test code = 95.5 % 90-100 N POCO2S) FIO2 (test code = FIO2A) 50 % PaO2/FiO2 (test code = BUU1OYY7) 163.80 mm/Hg ABG DELIVERY (test code = MAAME) BiPAP ABG VENT RESP RATE (test code = 18 /MIN RRA) ABG PEEP (test code = PEEPA) 10 cmH2O ABG TEMPERATURE (test code = 97.9 F TEMPA) ABG SITE (test code = SITEA) Art Line MARTIN'S TEST (test code = N/A ALLENS) BASIC METABOLIC [id number] 18:12:00 Test Item Value Reference Range Interpretation [...] = POCGLU) 150 MG/DL 70-110 H HEMOGLOBIN [id number] 18:12:00 Test Item Value Reference Range Interpretation Comments HEMOGLOBIN ABG (test code = HGB/ABG) 8.6 G/DL 11.0-15.0 L [id number] 18:12:00 Test Item Value Reference Range Interpretation Comments HEMATOCRIT (test code = HCT/ABG) 25 % 33.0-45.0 L POC LACTIC [id number] 18:12:00 Test Item Value Reference Range Interpretation Comments POC LACTIC ACID (test code = 0.7 mmol/l 0.9-1.7 L POCLAC) GLUCOSE [id number] 17:05:00 Test Item Value Reference Range Interpretation Comments GLUCOSE BEDSIDE (test 170 MG/DL 70-110 H Perfor med by certified code = GLUBED) 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 [facility] BASIC METABOLIC [id number] 14:48:00 Test Item Value Reference Range Interpretation [...] code = 10.4 mg/dL 8.0-10.5 N CA) [id number] 14:48:00 Test Item Value Reference Range Interpretation Comments MAGNESIUM (test code = MAG) 2.40 mg/dL 1.80-2.40 N GLUCOSE [id number] 14:41:00 Test Item Value Reference Range Interpretation Comments GLUCOSE BEDSIDE (test 233 MG/DL 70-110 H Perfor med by certified code = GLUBED) 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 [facility] POC ARTERIAL BLOOD [id number] 14:21:00 Test Item Value Reference Range Interpretation Comments POC ARTERIAL BLOOD GAS PH (test 7.346 7.35-7.45 L code = POCPHA) POC ARTERIAL BLOOD GAS PCO2 63.5 mmHg 35.0-45 HH (test code = LBEZZA0R) POC TCO2 ARTERIAL (test code = 36.8 POCTCO2) POC ARTERIAL BLOOD GAS PO2 (test 74.6 mmHg 80-100.0 L code = LKCTH5A) POC HCO3 ARTERIAL (test code = 34.8 MMOL/L 22.0-26.0 HH OPULTK4Z) POC BASE EXCESS (test code = 9.1 MMOL/L -4.0-4.0 H POCBEA) POC O2 SATURATION (test code = 93.5 % 90-100 N POCO2S) FIO2 (test code = FIO2A) 50 % PaO2/FiO2 (test code = YHD3LUR9) 149.20 mm/Hg ABG DELIVERY (test code = MAAME) BiPAP ABG TIDAL VOLUME (test code = 18 ml TVA) ABG PEEP (test code = PEEPA) 10 cmH2O ABG TEMPERATURE (test code = 98.2 F TEMPA) ABG SITE (test code = SITEA) Art Line MARTIN'S TEST (test code = N/A ALLENS) BASIC METABOLIC [id number] 14:21:00 Test Item Value Reference Range Interpretation [...] = POCGLU) 237 MG/DL 70-110 H HEMOGLOBIN [id number] 14:21:00 Test Item Value Reference Range Interpretation Comments HEMOGLOBIN ABG (test code = HGB/ABG) 8.1 G/DL 11.0-15.0 L [id number] 14:21:00 Test Item Value Reference Range Interpretation Comments HEMATOCRIT (test code = HCT/ABG) 24 % 33.0-45.0 L POC LACTIC [id number] 14:21:00 Test Item Value Reference Range Interpretation Comments POC LACTIC ACID (test code = 1.2 mmol/l 0.9-1.7 N POCLAC) POC ARTERIAL BLOOD [id number] 11:49:00 Test Item Value Reference Range Interpretation Comments POC ARTERIAL BLOOD GAS PH (test 7.348 7.35-7.45 L code = POCPHA) POC ARTERIAL BLOOD GAS PCO2 69.3 mmHg 35.0-45 HH (test code = [id number]) POC TCO2 ARTERIAL (test code = 40.0 POCTCO2) POC ARTERIAL BLOOD GAS PO2 (test 91.0 mmHg 80-100.0 N code = [id number]) POC HCO3 ARTERIAL (test code = 37.9 MMOL/L 22.0-26.0 HH [id number]) POC BASE EXCESS (test code = 12.3 MMOL/L -4.0-4.0 H POCBEA) POC O2 SATURATION (test code = 96.0 % 90-100 N POCO2S) FIO2 (test code = FIO2A) 60 % PaO2/FiO2 (test code = [id number]) 151.66 mm/Hg ABG DELIVERY (test code = MAAME) BiPAP ABG PEEP (test code = PEEPA) 8 cmH2O ABG PRESSURE SUPPORT (test code 14 cmH2O = PSABG) ABG TEMPERATURE (test code = 99 F TEMPA) ABG SITE (test code = SITEA) Art Line BASIC METABOLIC [id number] 11:49:00 Test Item Value Reference Range Interpretation [...] = POCGLU) 185 MG/DL 70-110 H HEMOGLOBIN [id number] 11:49:00 Test Item Value Reference Range Interpretation Comments HEMOGLOBIN ABG (test code = HGB/ABG) 8.7 G/DL 11.0-15.0 L [id number] 11:49:00 Test Item Value Reference Range Interpretation Comments HEMATOCRIT (test code = HCT/ABG) 26 % 33.0-45.0 L POC LACTIC [id number] 11:49:00 Test Item Value Reference Range Interpretation Comments POC LACTIC ACID (test code = 0.7 mmol/l 0.9-1.7 L POCLAC) GLUCOSE [id number] 09:32:00 Test Item Value Reference Range Interpretation Comments GLUCOSE BEDSIDE (test 143 MG/DL 70-110 H Perfor med by certified code = GLUBED) 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 [facility] POC ARTERIAL BLOOD [id number] 09:21:00 Test Item Value Reference Range Interpretation Comments POC ARTERIAL BLOOD GAS PH (test 7.376 7.35-7.45 N code = POCPHA) POC ARTERIAL BLOOD GAS PCO2 65.5 mmHg 35.0-45 HH (test code = [id number]) POC TCO2 ARTERIAL (test code = 40.5 POCTCO2) POC ARTERIAL BLOOD GAS PO2 (test 84.5 mmHg 80-100.0 N code = VUQPS3E) POC HCO3 ARTERIAL (test code = 38.5 MMOL/L 22.0-26.0 HH [id number]) POC BASE EXCESS (test code = 13.2 MMOL/L -4.0-4.0 H POCBEA) POC O2 SATURATION (test code = 95.7 % 90-100 N POCO2S) FIO2 (test code = FIO2A) 70 % PaO2/FiO2 (test code = [id number]) 120.71 mm/Hg ABG DELIVERY (test code = MAAME) BiPAP ABG TIDAL VOLUME (test code = 14 ml TVA) ABG PEEP (test code = PEEPA) 8 cmH2O ABG TEMPERATURE (test code = 98.1 F TEMPA) ABG SITE (test code = SITEA) Art Line MARTIN'S TEST (test code = N/A ALLENS) BASIC METABOLIC [id number] 09:21:00 Test Item Value Reference Range Interpretation [...] = POCGLU) 157 MG/DL 70-110 H HEMOGLOBIN [id number] 09:21:00 Test Item Value Reference Range Interpretation Comments HEMOGLOBIN ABG (test code = HGB/ABG) 8.9 G/DL 11.0-15.0 L [id number] 09:21:00 Test Item Value Reference Range Interpretation Comments HEMATOCRIT (test code = HCT/ABG) 26 % 33.0-45.0 L POC LACTIC [id number] 09:21:00 Test Item Value Reference Range Interpretation Comments POC LACTIC ACID (test code = 0.7 mmol/l 0.9-1.7 L POCLAC) GLUCOSE [id number] 07:04:00 Test Item Value Reference Range Interpretation Comments GLUCOSE BEDSIDE (test 142 MG/DL 70-110 H Perfor med by certified code = GLUBED) 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 [facility] POC ARTERIAL BLOOD [id number] 05:37:00 Test Item Value Reference Range Interpretation Comments POC ARTERIAL BLOOD GAS PH (test 7.363 7.35-7.45 N code = POCPHA) POC ARTERIAL BLOOD GAS PCO2 (test 64.5 mmHg 35.0-45 HH code = BZAYNJ2W) POC TCO2 ARTERIAL (test code = 38.7 POCTCO2) POC ARTERIAL BLOOD GAS PO2 (test 60.3 mmHg 80-100.0 L code = SDAMK5Q) POC HCO3 ARTERIAL (test code = 36.8 MMOL/L 22.0-26.0 HH GGPCYT4B) POC BASE EXCESS (test code = 11.4 MMOL/L -4.0-4.0 H POCBEA) POC O2 SATURATION (test code = 88.7 % 90-100 L POCO2S) FIO2 (test code = FIO2A) 80 % PaO2/FiO2 (test code = YOX4CSH2) 75.37 mm/Hg ABG DELIVERY (test code = MAAME) HFNC ABG TEMPERATURE (test code = 98.6 F TEMPA) ABG SITE (test code = SITEA) R Radial MARTIN'S TEST (test code = ALLENS) Positive BASIC METABOLIC [id number] 05:37:00 Test Item Value Reference Range Interpretation [...] = POCGLU) 170 MG/DL 70-110 H HEMOGLOBIN [id number] 05:37:00 Test Item Value Reference Range Interpretation Comments HEMOGLOBIN ABG (test code = HGB/ABG) 8.3 G/DL 11.0-15.0 L [id number] 05:37:00 Test Item Value Reference Range Interpretation Comments HEMATOCRIT (test code = HCT/ABG) 24 % 33.0-45.0 L POC LACTIC [id number] 05:37:00 Test Item Value Reference Range Interpretation Comments POC LACTIC ACID (test code = 0.8 mmol/l 0.9-1.7 L POCLAC) BASIC METABOLIC [id number] 03:53:00 Test Item Value Reference Range Interpretation [...] code = 10.8 mg/dL 8.0-10.5 H CA) [id number] 03:53:00 Test Item Value Reference Range Interpretation Comments MAGNESIUM (test code = MAG) 2.31 mg/dL 1.80-2.40 N CBC W/AUTO [id number] 03:35:00 Test Item Value Reference Range Interpretation [...] NO = MDIFF) - XR CHEST 1 [id number] 00:00:00 [facility] : 1945 Sex: F FAX:Jeffry Pennington MD [phone] [place]: St: ADM FAX: Abdiaziz Christiansen MD [phone] FAX: René Blancas [phone] FAX: Colt Aguillon MD [phone] Name: SAÚL GILES [facility] : 1945 Age/S: 76/F [address] [place] [address] Unit #: [id number] Loc: G.2205 [place] [address] Phys: René Villareal MD Acct: [id number] Dis Date: Status: ADM IN PHONE #: [phone] Exam Date: 12/24/2021630 FAX #: [phone] Reason: Cardiac Surgery Post Op EXAMS: CPT CODE: [id number] XR CHEST 1 V [id number] PROCEDURE INFORMATION: Exam: XR Chest Exam date and time: 12/24/2021 4:53 AM Age: 76 years old Clinical indication: Other: Cardiac surgery post op TECHNIQUE: Imaging protocol: Radiologic exam of [facility]. Views: 1 view. COMPARISON: CR XR CHEST 1V 12/23/2021 5:07 AM FINDINGS: Tubes, catheters and de vices: Right IJ sheath in place. EKG leads overlie the chest. Pacemaker/ICD leads are stable. Mitralvalve prosthesis is stable. Lungs: Ill-defined opacities bilateral with central lung zone predominance. Retrocardiac opacification obscuring the hemidiaphragm is unchanged. The right hemidiaphragm is partially obscured. Pleural spaces: There is no pneumothorax. Bilateral pleural effusions with larger layering component on the right grossly stable. Small volume of fluid tracking into the minor fissure. Heart/Mediastinum: Moderate prominence of the cardiomediastinal silhouette is stable allowing for differences in patient projection/rotation. The pulmonary vasculature is ill-defined. Bones/joints: Gómez rnotomy wires are intact. IMPRESSION: 1. Stable postoperative chest. 2. Bilateral pulmonary opacities with central lung zone predominance compatible with edema. Inflammation in the differential. Retrocardiac atelectasis versus consolidation. 3. Right greater than left pleural effusions. at 0926 Reported and signed by: Jasmeet Carlisle M.D. 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 [facility] BASIC METABOLIC [id number] 21:26:00 Test Item Value Reference Range Interpretation [...] = POCGLU) 176 MG/DL 70-110 H HEMOGLOBIN [id number] 21:26:00 Test Item Value Reference Range Interpretation Comments HEMOGLOBIN ABG (test code = HGB/ABG) 8.8 G/DL 11.0-15.0 L [id number] 21:26:00 Test Item Value Reference Range Interpretation Comments HEMATOCRIT (test code = HCT/ABG) 26 % 33.0-45.0 L POC LACTIC [id number] 21:26:00 Test Item Value Reference Range Interpretation Comments POC LACTIC ACID (test code = 0.8 mmol/l 0.9-1.7 L POCLAC) POC VENOUS BLOOD [id number] 21:26:00 Test Item Value Reference Range Interpretation Comments POC VENOUS BLOOD GAS PH (test 7.346 7.33-7.45 N code = POCPHV) POC VENOUS BLOOD GAS PCO2 (test 70.7 mmHg 43-47 HH code = AXSYQO8U) POC VENOUS BLOOD GAS PO2 (test 39.7 mmHG 10-50 N code = RHXIA2B) POC TCO2 VENOUS (test code = 40.8 WBONJU4Q) POC HCO3 VENOUS (test code = 38.6 MMOL/L 22-27 H PZDZAF5P) POC BASE EXCESS VENOUS (test 13.0 MMOL/L -4.0-4.0 H code = POCBEV) POC O2 SATURATION VENOUS (test 68.8 % 60-80 N code = FERK0EH) VENOUS BLOOD GAS FIO2 (test code 70 % = FIO2V) VENOUS BLOOD GAS DELIVERY (test HFNC code = DELV) VENOUS BLOOD GAS TEMP (test code 98.6 F = TEMPV) VENOUS BLOOD GAS SITE (test code Central Line = SITEV) GLUCOSE [id number] 18:46:00 Test Item Value Reference Range Interpretation Comments GLUCOSE BEDSIDE (test 163 MG/DL 70-110 H Perfor med by certified code = GLUBED) 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 [facility] BASIC METABOLIC [id number] 18:17:00 Test Item Value Reference Range Interpretation [...] = POCGLU) 186 MG/DL 70-110 H HEMOGLOBIN [id number] 18:17:00 Test Item Value Reference Range Interpretation Comments HEMOGLOBIN ABG (test code = HGB/ABG) 8.8 G/DL 11.0-15.0 L [id number] 18:17:00 Test Item Value Reference Range Interpretation Comments HEMATOCRIT (test code = HCT/ABG) 26 % 33.0-45.0 L POC LACTIC [id number] 18:17:00 Test Item Value Reference Range Interpretation Comments POC LACTIC ACID (test code = 0.7 mmol/l 0.9-1.7 L POCLAC) POC VENOUS BLOOD [id number] 18:17:00 Test Item Value Reference Range Interpretation Comments MARTIN'S TEST (test code = N/A ALLENS) POC VENOUS BLOOD GAS PH (test 7.308 7.33-7.45 L code = POCPHV) POC VENOUS BLOOD GAS PCO2 (test 75.8 mmHg 43-47 HH code = FAHQYA9J) POC VENOUS BLOOD GAS PO2 (test 37.3 mmHG 10-50 N code = GVCOU8J) POC TCO2 VENOUS (test code = 40.5 XTQIYM7X) POC HCO3 VENOUS (test code = 38.1 MMOL/L 22-27 H ZKXEMM1Z) POC BASE EXCESS VENOUS (test 11.8 MMOL/L -4.0-4.0 H code = POCBEV) POC O2 SATURATION VENOUS (test 63.8 % 60-80 N code = JETU4RT) VENOUS BLOOD GAS FIO2 (test code 70 % = FIO2V) VENOUS BLOOD GAS DELIVERY (test HFNC code = DELV) VBG TIDAL VOLUME (test code = 60 ml TVV) VENOUS BLOOD GAS TEMP (test code 97.9 F = TEMPV) VENOUS BLOOD GAS SITE (test code Central Line = SITEV) GLUCOSE [id number] 17:37:00 Test Item Value Reference Range Interpretation Comments GLUCOSE BEDSIDE (test 150 MG/DL 70-110 H Perfor med by certified code = GLUBED) 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 [facility] BASIC METABOLIC [id number] 15:37:00 Test Item Value Reference Range Interpretation [...] code = 10.4 mg/dL 8.0-10.5 N CA) [id number] 15:37:00 Test Item Value Reference Range Interpretation Comments MAGNESIUM (test code = MAG) 2.34 mg/dL 1.80-2.40 N GLUCOSE [id number] 15:19:00 Test Item Value Reference Range Interpretation Comments GLUCOSE BEDSIDE (test 209 MG/DL 70-110 H [facility] med by certified code = GLUBED) 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 [facility] BASIC METABOLIC [id number] 13:47:00 Test Item Value Reference Range Interpretation [...] = POCGLU) 326 MG/DL 70-110 H HEMOGLOBIN [id number] 13:47:00 Test Item Value Reference Range Interpretation Comments HEMOGLOBIN ABG (test code = HGB/ABG) 9.0 G/DL 11.0-15.0 L [id number] 13:47:00 Test Item Value Reference Range Interpretation Comments HEMATOCRIT (test code = HCT/ABG) 27 % 33.0-45.0 L POC LACTIC [id number] 13:47:00 Test Item Value Reference Range Interpretation Comments POC LACTIC ACID (test code = 1.1 mmol/l 0.9-1.7 N POCLAC) POC VENOUS BLOOD [id number] 13:47:00 Test Item Value Reference Range Interpretation Comments POC VENOUS BLOOD GAS PH (test 7.298 7.33-7.45 L code = POCPHV) POC VENOUS BLOOD GAS PCO2 (test 69.6 mmHg 43-47 HH code = FWLDHD9W) POC VENOUS BLOOD GAS PO2 (test 33.8 mmHG 10-50 N code = ETXYC6T) POC TCO2 VENOUS (test code = 36.6 NJENLM5H) POC HCO3 VENOUS (test code = 34.4 MMOL/L 22-27 H HBLLVK4B) POC BASE EXCESS VENOUS (test 7.8 MMOL/L -4.0-4.0 H code = POCBEV) POC O2 SATURATION VENOUS (test 58.7 % 60-80 L code = WPRA0OK) VENOUS BLOOD GAS FIO2 (test code 70 % = FIO2V) VENOUS BLOOD GAS DELIVERY (test HFNC code = DELV) VBG TIDAL VOLUME (test code = 60 ml TVV) VENOUS BLOOD GAS TEMP (test code 97.3 F = TEMPV) VENOUS BLOOD GAS SITE (test code Central Line = SITEV) GLUCOSE [id number] 13:38:00 Test Item Value Reference Range Interpretation Comments GLUCOSE BEDSIDE (test 236 MG/DL 70-110 H Perfor med by certified code = GLUBED) 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 [facility] [id number] 12:35:00 Test Item Value Reference Range Interpretation Comments SURGICAL (test code = SR) R UN DATE: 12/23/21 [facility] - LAB PAGE 1 RUN TIME: 1235 Specimen Inquiry RUN USER: INTERFACE P ATIENT: SAÚL GILES LOC: EVAN U #: [id number] AGE/SX: 76/F [facility] DR: Jeffry Hsu MD : 41 BED: 1 DIS: STATUS: ADM IN TLOC: SPEC #: [id number] RECD: 12/22/21 STATUS: WILFREDO REQ #: [id number] ARA: 12/19/21 DR: Jeffry Hsu MD ENTERED: 12/22/21 SP TYPE: SURGICAL OTHR DR: Aruna Fortune MD, Aisha MD Amin, Alkesh C MD Chaugle, Abdul Hannan MD Mouchli, Anas MD Raslan, Saleem MDORDERED: 82830, ANATOMIC SPEC COPIES TO: Aruna Fortune MD [address] [place] [address] Jeffry Hsu MD [address] [place] [address] Suki Fuchs MD [address] [place] [address] Abdiaziz Fuchs MD [address] [address] René Villareal MD [address] [place] [address] [address] [place] [address] Jd Alva MD [address] [place] [address] Colt Vail MD [address] [facility] [address] [place] [address] CONTINUED ON NEXT PAGE R UN DATE: 12/23/21 [facility] - LAB PAGE 2 RUN TIME: 1235 Specimen Inquiry RUN USER: INTERFACE S PEC #: [id number] PATIENT: SAÚL GILES #[id number] (Continued) PROCEDURES: [id number] (12/22/21) TISSUES: A. PERICARDIUM BIOPSY CLINICAL HISTORY SAME FINAL DIAGNOSIS Pericardium, excision: Benign fibroconnective tissue with focal hemorrhage and mild acuteinflammation. GROSS DESCRIPTION Received in formalin labeled "pericardium" include 2 fragments of irregular shaped graham-graymembranous tissue, aggregating to 7.5 cm in maximum dimension, with apparel trimmings sales representative sectionssubmitted in (A). Technical component performed at [facility] [address], [place] [address] Unless gross only, the diagnosis is based [...] INFORMATION CONSTRICTIVE PERICARDITIS Signed SIGNATURE ON FILE Kay Herzog 12/23/21 1235 END OF REPORT GLUCOSE [id number] 12:30:00 Test Item Value Reference Range Interpretation Comments GLUCOSE BEDSIDE (test 250 MG/DL 70-110 H Perfor med by certified code = GLUBED) 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 [facility] GLUCOSE [id number] 09:06:00 Test Item Value Reference Range Interpretation Comments GLUCOSE BEDSIDE (test 232 MG/DL 70-110 H Perfor med by certified code = GLUBED) 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 [facility] GLUCOSE [id number] 06:43:00 Test Item Value Reference Range Interpretation Comments GLUCOSE BEDSIDE (test 213 MG/DL 70-110 H Perfor med by certified code = GLUBED) 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 [facility] CBC W/AUTO [id number] 05:12:00 Test Item Value Reference Range Interpretation [...] (test code NO = MDIFF) BASIC METABOLIC [id number] 04:47:00 Test Item Value Reference Range Interpretation [...] code = 10.5 mg/dL 8.0-10.5 N CA) [id number] 04:47:00 Test Item Value Reference Range Interpretation Comments MAGNESIUM (test code = MAG) 2.42 mg/dL 1.80-2.40 H POC ARTERIAL BLOOD [id number] 04:01:00 Test Item Value Reference Range Interpretation Comments POC ARTERIAL BLOOD GAS PH (test 7.313 7.35-7.45 L code = POCPHA) POC ARTERIAL BLOOD GAS PCO2 (test 61.5 mmHg 35.0-45 HH code = CKUFQZ3Q) POC TCO2 ARTERIAL (test code = 33.1 POCTCO2) POC ARTERIAL BLOOD GAS PO2 (test 65.8 mmHg 80-100.0 L code = SWGWT4F) POC HCO3 ARTERIAL (test code = 31.2 MMOL/L 22.0-26.0 HH HLAASQ9V) POC BASE EXCESS (test code = 5.0 MMOL/L -4.0-4.0 H POCBEA) POC O2 SATURATION (test code = 90.0 % 90-100 N POCO2S) FIO2 (test code = FIO2A) 73 % PaO2/FiO2 (test code = OKB4EOZ2) 90.13 mm/Hg ABG DELIVERY (test code = MAAME) HFNC ABG SITE (test code = SITEA) R Radial MARTIN'S TEST (test code = ALLENS) Positive BASIC METABOLIC [id number] 04:01:00 Test Item Value Reference Range Interpretation [...] = POCGLU) 234 MG/DL 70-110 H HEMOGLOBIN [id number] 04:01:00 Test Item Value Reference Range Interpretation Comments HEMOGLOBIN ABG (test code = 11.2 G/DL 11.0-15.0 N HGB/ABG) [id number] 04:01:00 Test Item Value Reference Range Interpretation Comments HEMATOCRIT (test code = HCT/ABG) 33 % 33.0-45.0 N POC LACTIC [id number] 04:01:00 Test Item Value Reference Range Interpretation Comments POC LACTIC ACID (test code = 0.8 mmol/l 0.9-1.7 L POCLAC) GLUCOSE [id number] 00:43:00 Test Item Value Reference Range Interpretation Comments GLUCOSE BEDSIDE (test 222 MG/DL 70-110 H Perfor med by certified code = GLUBED) 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 [facility] - XR ABDOMEN 1V (KUB)2021-12-23 00:00:00 [facility] 1945 Sex: F FAX:Jeffry Pennington MD [phone] [place]: St: ADM FAX: Abdiaziz Christiansen MD [phone] FAX: Solange Sawyer MD [phone] FAX: Colt Aguillon MD [phone] Name: SAÚL GILES [facility] : 1945 Age/S: 76/F [address] [place] [address] Unit #: [id number] Loc: G.2201 [place] [address] Phys: Solange Mohamud MD Acct: [id number] Dis Date: Status: ADM IN PHONE #: [phone] Exam Date: 12/23/202154 FAX #: [phone] Reason: NG TUBE PLACEMENT EXAMS: CPT CODE: [id number] XR ABDOMEN 1V (KUB) 16305 PROCEDURE INFORMATION: Exam: XR Abdomen Exam date and time: 12/23/2021 12:38 AM Age: 76 years old Clinical indication: Device placement; Gi device; Nasogastric tube; Additional info: Ng tube placement TECHNIQUE: Imaging protocol: Radiologic exam of the abdomen. Views: Frontal supine view of the abdomen.1 View. COMPARISON: CR XR ABDOMEN AP 1 V 12/22/2021 9:26 PM FINDINGS: Tubes, catheters and devices: A nasogastric tube terminates overlying the stomach. Gastrointestinal tract: There are dilated small bowel loops in the left mid abdomen and left lower quadrant. Intraperitoneal space: No evidence of pne umoperitoneum or soft tissue masses. Bones/joints: Unremarkable. Soft tissues: No abnormal radiopaque densities. IMPRESSION: 1. A nasogastric tube terminates overlying the stomach. 2. Dilated small bowel loops in the left lower quadrant. at 0122 Reported and signed by: Sanchez Mendiola M.D CC: Jeffry Hsu MD; Abdiaziz Fuchs MD; Solange Mohamud MD; Colt Vail MD Technologist: RT Elba(Marla) Trnscrd Date/Time/By: 12/23/2021 (121) : By: [email or web address] Orig Print D/T: S: 12/23/2021 (121) PAGE 1 Signed Report- XR CHEST 1 [id number] 00:00:00 [facility] 1945 Sex: F FAX:Jeffry Pennington MD [phone] [place]: St: [facility] FAX: Abdiaziz Christiansen MD [phone] FAX: René Blancas [phone] FAX: Colt Aguillon MD [phone] Name: CHANSAÚL [facility] : 1945 Age/S: 76/F [address] [place] [address] Blvd Unit #: [id number] Loc: G.2201 [place] [address] Phys: René Villareal MD Acct: [id number] Dis Date: Status: ADM IN PHONE #: [phone] Exam Date: 12/23/2021 06 FAX #: [phone] Reason: Cardiac Surgery Post Op EXAMS: CPT CODE: [id number] XR CHEST 1 V 03556 PROCEDURE INFORMATION: Exam: XR Chest Exam date and time: 12/23/2021 5:07 AM Age: 76 years old Clinical indication: Other: Cardiac surgery post op TECHNIQUE: Imaging protocol: Radiologic exam of the chest. Views: 1 view. COMPARISON: CR XR CHEST 1V 12/22/2021 5:14 AM FINDINGS: Tubes, catheters and dev ices: Chest tubes removed. [place] catheter removed. Jugular introducer sheath remains in [...] MD Technologist: RT Caroline(R) Trnscrd Date/Time/By: 12/23/2021 (08) : By: [email or web address] Orig Print D/T: S: [...] CALCIUM (test code = CA) mg/dL 8.0-10.5 [id number] 23:05:00 Test Item Value Reference Range Interpretation Comments MAGNESIUM (test code = MAG) mg/dL 1.80-2.40 CBC W/AUTO [id number] 22:57:00 Test Item Value Reference Range Interpretation [...] REQUIRED (test NO code = MDIFF) CALCIUM [id number] 22:56:00 Test Item Value Reference Range Interpretation Comments CALCIUM IONIZED (test code = TYREE) 1.10 MMOL/L 1.09-1.30 N GLUCOSE [id number] 21:52:00 Test Item Value Reference Range Interpretation Comments GLUCOSE BEDSIDE (test 168 MG/DL 70-110 H Perfor med by certified code = GLUBED) 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 [facility] GLUCOSE [id number] 18:08:00 Test Item Value Reference Range Interpretation Comments GLUCOSE BEDSIDE (test 238 MG/DL 70-110 H Perfor med by certified code = GLUBED) 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 [facility] BASIC METABOLIC [id number] 17:53:00 Test Item Value Reference Range Interpretation [...] = POCGLU) 236 MG/DL 70-110 H HEMOGLOBIN [id number] 17:53:00 Test Item Value Reference Range Interpretation Comments HEMOGLOBIN ABG (test code = 11.8 G/DL 11.0-15.0 N HGB/ABG) [id number] 17:53:00 Test Item Value Reference Range Interpretation Comments HEMATOCRIT (test code = HCT/ABG) 35 % 33.0-45.0 N POC LACTIC [id number] 17:53:00 Test Item Value Reference Range Interpretation Comments POC LACTIC ACID (test code = 0.7 mmol/l 0.9-1.7 L POCLAC) POC VENOUS BLOOD [id number] 17:53:00 Test Item Value Reference Range Interpretation Comments MARTIN'S TEST (test code = N/A ALLENS) POC VENOUS BLOOD GAS PH (test 7.282 7.33-7.45 L code = POCPHV) POC VENOUS BLOOD GAS PCO2 (test 61.7 mmHg 43-47 HH code = SQQXFY0A) POC VENOUS BLOOD GAS PO2 (test 37.2 mmHG 10-50 N code = LSVKF1N) POC TCO2 VENOUS (test code = 31.2 JUORKD5B) POC HCO3 VENOUS (test code = 29.3 MMOL/L 22-27 H JPIJBX0N) POC BASE EXCESS VENOUS (test 2.5 MMOL/L -4.0-4.0 N code = POCBEV) POC O2 SATURATION VENOUS (test 63.2 % 60-80 N code = XUYW9QT) VENOUS BLOOD GAS FIO2 (test code 40 % = FIO2V) VENOUS BLOOD GAS DELIVERY (test BiPAP code = DELV) VBG VENT MODE (test code = BIVENT MODEV) VENOUS BLOOD GAS TEMP (test code 98 F = TEMPV) VENOUS BLOOD GAS SITE (test code Central Line = SITEV) BASIC METABOLIC [id number] 15:58:00 Test Item Value Reference Range Interpretation [...] = POCGLU) 371 MG/DL 70-110 H HEMOGLOBIN [id number] 15:58:00 Test Item Value Reference Range Interpretation Comments HEMOGLOBIN ABG (test code = HGB/ABG) 8.1 G/DL 11.0-15.0 L [id number] 15:58:00 Test Item Value Reference Range Interpretation Comments HEMATOCRIT (test code = HCT/ABG) 24 % 33.0-45.0 L POC LACTIC [id number] 15:58:00 Test Item Value Reference Range Interpretation Comments POC LACTIC ACID (test code = 0.6 mmol/l 0.9-1.7 L POCLAC) POC VENOUS BLOOD [id number] 15:58:00 Test Item Value Reference Range Interpretation Comments MARTIN'S TEST (test code = N/A ALLENS) POC VENOUS BLOOD GAS PH (test 7.226 7.33-7.45 L code = POCPHV) POC VENOUS BLOOD GAS PCO2 (test 74.1 mmHg 43-47 HH code = OZKLKI5X) POC VENOUS BLOOD GAS PO2 (test 36.8 mmHG 10-50 N code = OEZTU5N) POC TCO2 VENOUS (test code = 33.2 IEQWBF0W) POC HCO3 VENOUS (test code = 30.9 MMOL/L 22-27 H ZLZEEE0T) POC BASE EXCESS VENOUS (test 3.2 MMOL/L -4.0-4.0 N code = POCBEV) POC O2 SATURATION VENOUS (test 58.2 % 60-80 L code = QNSA4UB) VENOUS BLOOD GAS FIO2 (test code 60 % = FIO2V) VENOUS BLOOD GAS DELIVERY (test Vapotherm code = DELV) LILIYA. BLOOD GAS RESP. RATE (test 20 /min code = RRV) VBG TIDAL VOLUME (test code = 550 ml TVV) VENOUS BLOOD GAS TEMP (test code 98 F = TEMPV) VENOUS BLOOD GAS SITE (test code Central Line = SITEV) GLUCOSE [id number] 11:37:00 Test Item Value Reference Range Interpretation Comments GLUCOSE BEDSIDE (test 258 MG/DL 70-110 H Perfor med by certified code = GLUBED) 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 [facility] [id number] 07:18:00 Test Item Value Reference Range Interpretation Comments PHOSPHOROUS (test code = PHOS) 3.4 MG/DL 2.5-4.9 N GLUCOSE [id number] 07:01:00 Test Item Value Reference Range Interpretation Comments GLUCOSE BEDSIDE (test 211 MG/DL 70-110 H Perfor med by certified code = GLUBED) 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 [facility] CBC W/AUTO [id number] 05:28:00 Test Item Value Reference Range Interpretation [...] (test code NO = MDIFF) BASIC METABOLIC [id number] 05:03:00 Test Item Value Reference Range Interpretation [...] 8.0-10.5 N CA) COMMENTS: POD #1HEPATIC FUNCTION [id number] 05:03:00 Test Item Value Reference Range Interpretation [...] 20-125 N code = ALKP) COMMENTS: POD #[id number] 05:03:00 Test Item Value Reference Range Interpretation Comments MAGNESIUM (test code = MAG) 2.20 mg/dL 1.80-2.40 N COMMENTS: POD #1POC ARTERIAL BLOOD [id number] 04:35:00 Test Item Value Reference Range Interpretation Comments POC ARTERIAL BLOOD GAS PH (test 7.334 7.35-7.45 L code = POCPHA) POC ARTERIAL BLOOD GAS PCO2 55.7 mmHg 35.0-45 HH (test code = CFTOTM4B) POC TCO2 ARTERIAL (test code = 31.4 POCTCO2) POC ARTERIAL BLOOD GAS PO2 (test 88.6 mmHg 80-100.0 N code = JCQIB5N) POC HCO3 ARTERIAL (test code = 29.7 MMOL/L 22.0-26.0 HH TMTVQT5Q) POC BASE EXCESS (test code = 3.8 MMOL/L -4.0-4.0 N POCBEA) POC O2 SATURATION (test code = 96.0 % 90-100 N POCO2S) FIO2 (test code = FIO2A) 60 % PaO2/FiO2 (test code = [id number]) 147.66 mm/Hg ABG DELIVERY (test code = MAAME) BiPAP ABG VENT RESP RATE (test code = 25 /MIN RRA) ABG TIDAL VOLUME (test code = 550 ml TVA) ABG TEMPERATURE (test code = 98.4 F TEMPA) ABG SITE (test code = SITEA) Art Line BASIC METABOLIC [id number] 04:35:00 Test Item Value Reference Range Interpretation [...] = POCGLU) 224 MG/DL 70-110 H HEMOGLOBIN [id number] 04:35:00 Test Item Value Reference Range Interpretation Comments HEMOGLOBIN ABG (test code = HGB/ABG) 8.6 G/DL 11.0-15.0 L [id number] 04:35:00 Test Item Value Reference Range Interpretation Comments HEMATOCRIT (test code = HCT/ABG) 25 % 33.0-45.0 L POC LACTIC [id number] 04:35:00 Test Item Value Reference Range Interpretation Comments POC LACTIC ACID (test code = 0.9 mmol/l 0.9-1.7 N POCLAC) GLUCOSE [id number] 00:16:00 Test Item Value Reference Range Interpretation Comments GLUCOSE BEDSIDE (test 178 MG/DL 70-110 H Perfor med by certified code = GLUBED) 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 [facility] POC ARTERIAL BLOOD [id number] 00:06:00 Test Item Value Reference Range Interpretation Comments POC ARTERIAL BLOOD GAS PH (test 7.330 7.35-7.45 L code = POCPHA) POC ARTERIAL BLOOD GAS PCO2 51.8 mmHg 35.0-45 HH (test code = QILHCI5E) POC TCO2 ARTERIAL (test code = 29.1 POCTCO2) POC ARTERIAL BLOOD GAS PO2 (test 69.4 mmHg 80-100.0 L code = WCGHK4S) POC HCO3 ARTERIAL (test code = 27.5 MMOL/L 22.0-26.0 H RKDDGD2C) POC BASE EXCESS (test code = 1.4 MMOL/L -4.0-4.0 N POCBEA) POC O2 SATURATION (test code = 92.5 % 90-100 N POCO2S) FIO2 (test code = FIO2A) 60 % PaO2/FiO2 (test code = CPK1NPQ5) 115.66 mm/Hg ABG DELIVERY (test code = MAAME) BiPAP ABG VENT RESP RATE (test code = 25 /MIN RRA) ABG TIDAL VOLUME (test code = 550 ml TVA) ABG TEMPERATURE (test code = 97.7 F TEMPA) ABG SITE (test code = SITEA) Art Line BASIC METABOLIC [id number] 00:06:00 Test Item Value Reference Range Interpretation [...] = POCGLU) 196 MG/DL 70-110 H HEMOGLOBIN [id number] 00:06:00 Test Item Value Reference Range Interpretation Comments HEMOGLOBIN ABG (test code = HGB/ABG) 8.3 G/DL 11.0-15.0 L [id number] 00:06:00 Test Item Value Reference Range Interpretation Comments HEMATOCRIT (test code = HCT/ABG) 24 % 33.0-45.0 L POC LACTIC [id number] 00:06:00 Test Item Value Reference Range Interpretation Comments POC LACTIC ACID (test code = 0.8 mmol/l 0.9-1.7 L POCLAC) - XR ABDOMEN 1V (KUB)2021-12-22 00:00:00 [facility] : 1945 Sex: F FAX:Jeffry Pennington MD [phone] [place]: St: ADM FAX: Abdiaziz Christiansen MD [phone] FAX: Solange Sawyer MD [phone] FAX: Colt Aguillon MD [phone] Name: SAÚL GILES [facility] : 1945 Age/S: 76/F [address] [place] [address] Unit #: [id number] Loc: [address] [place] [address] Phys: Solange Mohamud MD Acct: [id number] Dis Date: Status: ADM IN PHONE #: [phone] Exam Date: 12/22/20212133 FAX #: [phone] Reason: NAUSEA EXAMS: CPT CODE: [id number] XR ABDOMEN 1V (KUB) [id number] PROCEDURE INFORMATION: Exam: XR Abdomen Exam date and time: 12/22/2021 9:26 PM Age: 76 years old Clinical indication: Nausea TECHNIQUE: Imaging protocol: Radiologic exam of the abdomen. Views: Frontal supine view ofthe abdomen. 1 View. COMPARISON: CR XR CHEST 1V 12/22/2021 5:14 AM FINDINGS: Gastrointestinal tract:Lower abdomen small bowel show diffuse distention up to 3.4 cm diameter. There is no pneumatosis or mass effect. Bones/joints: Unremarkable. Soft tissues: Surgical sutures overlie the right abdomen. IMP RESSION: Nonspecific lower abdomen small bowel distention. If symptoms persist or worsen, follow-up imaging may be performed to better assess for small bowel obstruction at 0378 Reported and signed by: Anoop Lilly M.D. CC: Jeffry Hsu MD; Abdiaziz Fuchs MD; Solange Mohamud MD; Colt Vail MD Technologist: Radha Aaron, RT(R) Trnscrd Date/Time/By: 12/22/2021 (2153) : By: [email or web address] Orig Print D/T: S: 12/22/2021 (2154) PAGE 1 SignedReport- US SOFT TISSUE [id number] 00:[facility]00[facility] 1945 Sex: F Name: SAÚL GILES [facility] : 1945 Age/S: 76 / F [address] [place] [address] Unit #: [id number] Loc: [place] [address] Phys: Jd Alva MD Acct: [id number] Dis Date: Status: ADM IN PHONE #:[phone] Exam Date: 12/22/20211106 FAX #: [phone] Reason: right pleural effusion EXAMS: CPT CODE: [id number] US SOFT TISSUE TORSO [id number] PROCEDURE INFORMATION: Exam: US Chest, Pleural Space [...] Report- XR CHEST 1 V 2021-12-22 00:00:00 [facility] 1945 Sex: F FAX:Jeffry Pennington MD [phone] [place]: St: ADM FAX: Abdiaziz Christiansen MD [phone] FAX: René Blancas [phone] FAX: Colt Aguillon MD [phone] Name: SAÚL GILES [facility] : 1945 Age/S: 76/F [address] [place] [address] Unit #: [id number] Loc: [address] [place] [address] Phys: René Villareal MD Acct: [id number] Dis Date: Status: ADM IN PHONE #: [phone] Exam Date: 12/22/2021 0635 FAX #: [phone] Reason: Cardiac Surgery Post Op EXAMS: CPT CODE: [id number] XR CHEST 1 V 90693 PROCEDURE INFORMATION: Exam: XR Chest Exam date and time: 12/22/2021 5:14 AM Age: 76 years old Clinical indication: Other: Cardiac surgery post op TECHNIQUE: Imaging protocol: Radiologic exam of the chest. Views: 1 view. COMPARISON: CR XR CHEST 1V 12/21/2021 5:41 AM FINDINGS: Tubes, catheters and jarrett grey: Right IJ [place]-Juanita introducer and [place]-Juanita catheter with the catheter tip at the right main pulmonary artery. Right-sided thoracostomy tube. Biventricular pacemaker with leads. Lungs: Mild decreased lung volumes. Interval worsening opacity at the right lung/right hemithorax. Interval worsening opacity at the retrocardiac left lower lung field. Pleural spaces: Interval obscuration of the right hemidiaphragm by increasing right pleural fluid collection. Stable left pleural fluid collection. No pneumothorax. Heart/Mediastinum: The cardiomediastinal silhouette is stable. Interval [...] Signed Report (CONTINUED) FAX: Jeffry Pennington MD [phone] [place]: St: ADM FAX: Abdiaziz Christiansen MD [phone] FAX: René Blancas [phone] FAX: Colt Aguillon MD [phone] Name: SAÚL GILES [facility] [place] : 1945 Age/S: 76/F [address] [place] [address] Unit #: [id number] Loc: GAlex[address] [place] [address] Phys: René Villareal MD Acct: [id number] Dis Date: Status: ADM IN PHONE #: [phone] Exam Date: 12/22/2021634 FAX #: [phone] Reason: Cardiac Surgery Post Op EXAMS: CPT CODE: [id number] XR CHEST 1 V 11855 (Continued) CC: Jeffry Hsu MD; Abdiaziz Fuchs MD; Reén Villareal MD; Colt Vail MD Technologist: Hali Leon RT(R) Trnscrd Date/Time/By: 12/22/2021 (904) : By: [email or web address] Orig Print D/T: S: 12/22/2021 (904) PAGE 2 S[facility] ART[facility] BLOOD [id number] 21:10:00 Test Item Value Reference Range Interpretation Comments POC ARTERIAL BLOOD GAS PH (test 7.306 7.35-7.45 L code = POCPHA) POC ARTERIAL BLOOD GAS PCO2 56.1 mmHg 35.0-45 HH (test code = LFGHOI3K) POC TCO2 ARTERIAL (test code = 29.8 POCTCO2) POC ARTERIAL BLOOD GAS PO2 (test 64.8 mmHg 80-100.0 L code = VSVDU2N) POC HCO3 ARTERIAL (test code = 28.1 MMOL/L 22.0-26.0 HH CYDVQP1E) POC BASE EXCESS (test code = 1.7 MMOL/L -4.0-4.0 N POCBEA) POC O2 SATURATION (test code = 90.0 % 90-100 N POCO2S) FIO2 (test code = FIO2A) 60 % PaO2/FiO2 (test code = PIH7QEF8) 108.00 mm/Hg ABG DELIVERY (test code = MAAME) BiPAP ABG VENT RESP RATE (test code = 25 /MIN RRA) ABG TIDAL VOLUME (test code = 550 ml TVA) ABG TEMPERATURE (test code = 98.1 F TEMPA) ABG SITE (test code = SITEA) Art Line BASIC METABOLIC [id number] 21:10:00 Test Item Value Reference Range Interpretation [...] = POCGLU) 200 MG/DL 70-110 H HEMOGLOBIN [id number] 21:10:00 Test Item Value Reference Range Interpretation Comments HEMOGLOBIN ABG (test code = HGB/ABG) 8.4 G/DL 11.0-15.0 L [id number] 21:10:00 Test Item Value Reference Range Interpretation Comments HEMATOCRIT (test code = HCT/ABG) 25 % 33.0-45.0 L POC LACTIC [id number] 21:10:00 Test Item Value Reference Range Interpretation Comments POC LACTIC ACID (test code = 0.8 mmol/l 0.9-1.7 L POCLAC) GLUCOSE [id number] 16:26:00 Test Item Value Reference Range Interpretation Comments GLUCOSE BEDSIDE (test 178 MG/DL 70-110 H Perfor med by certified code = GLUBED) 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 [facility] POC ARTERIAL BLOOD [id number] 16:07:00 Test Item Value Reference Range Interpretation Comments POC ARTERIAL BLOOD GAS PH (test 7.282 7.35-7.45 LL code = POCPHA) POC ARTERIAL BLOOD GAS PCO2 (test 56.0 mmHg 35.0-45 HH code = WDZJDB4D) POC TCO2 ARTERIAL (test code = 28.3 POCTCO2) POC ARTERIAL BLOOD GAS PO2 (test 92.5 mmHg 80-100.0 N code = PNNYD1Y) POC HCO3 ARTERIAL (test code = 26.5 MMOL/L 22.0-26.0 H KWMBEI6D) POC BASE EXCESS (test code = -0.3 MMOL/L -4.0-4.0 N POCBEA) POC O2 SATURATION (test code = 96.0 % 90-100 N POCO2S) FIO2 (test code = FIO2A) 100 % PaO2/FiO2 (test code = YCO6IVD1) 92.50 mm/Hg ABG DELIVERY (test code = MAAME) Vapotherm ABG TEMPERATURE (test code = 98 F TEMPA) ABG SITE (test code = SITEA) Art Line MARTIN'S TEST (test code = ALLENS) N/A BASIC METABOLIC [id number] 16:07:00 Test Item Value Reference Range Interpretation [...] = POCGLU) 175 MG/DL 70-110 H HEMOGLOBIN [id number] 16:07:00 Test Item Value Reference Range Interpretation Comments HEMOGLOBIN ABG (test code = HGB/ABG) 8.6 G/DL 11.0-15.0 L [id number] 16:07:00 Test Item Value Reference Range Interpretation Comments HEMATOCRIT (test code = HCT/ABG) 25 % 33.0-45.0 L POC LACTIC [id number] 16:07:00 Test Item Value Reference Range Interpretation Comments POC LACTIC ACID (test code = 1.0 mmol/l 0.9-1.7 N POCLAC) POC ARTERIAL BLOOD [id number] 15:23:00 Test Item Value Reference Range Interpretation Comments POC ARTERIAL BLOOD GAS PH (test 7.310 7.35-7.45 L code = POCPHA) POC ARTERIAL BLOOD GAS PCO2 52.4 mmHg 35.0-45 HH (test code = NMVTOT7O) POC TCO2 ARTERIAL (test code = 27.9 POCTCO2) POC ARTERIAL BLOOD GAS PO2 (test 87.5 mmHg 80-100.0 N code = UPVGA0S) POC HCO3 ARTERIAL (test code = 26.3 MMOL/L 22.0-26.0 H ZDAFJD4H) POC BASE EXCESS (test code = 0.1 MMOL/L -4.0-4.0 N POCBEA) POC O2 SATURATION (test code = 95.4 % 90-100 N POCO2S) FIO2 (test code = FIO2A) 60 % PaO2/FiO2 (test code = ETL6RAW2) 145.83 mm/Hg ABG DELIVERY (test code = MAAME) BiPAP ABG TEMPERATURE (test code = 99 F TEMPA) ABG SITE (test code = SITEA) Art Line MARTIN'S TEST (test code = N/A ALLENS) BASIC METABOLIC [id number] 15:23:00 Test Item Value Reference Range Interpretation [...] = POCGLU) 193 MG/DL 70-110 H HEMOGLOBIN [id number] 15:23:00 Test Item Value Reference Range Interpretation Comments HEMOGLOBIN ABG (test code = HGB/ABG) 7.8 G/DL 11.0-15.0 L [id number] 15:23:00 Test Item Value Reference Range Interpretation Comments HEMATOCRIT (test code = HCT/ABG) 23 % 33.0-45.0 L POC LACTIC [id number] 15:23:00 Test Item Value Reference Range Interpretation Comments POC LACTIC ACID (test code = 0.9 mmol/l 0.9-1.7 N POCLAC) POC ARTERIAL BLOOD [id number] 12:31:00 Test Item Value Reference Range Interpretation Comments POC ARTERIAL BLOOD GAS PH (test 7.227 7.35-7.45 LL code = POCPHA) POC ARTERIAL BLOOD GAS PCO2 (test 65.9 mmHg 35.0-45 HH code = ZUXQOJ1B) POC TCO2 ARTERIAL (test code = 29.4 POCTCO2) POC ARTERIAL BLOOD GAS PO2 (test 47.8 mmHg 80-100.0 LL code = VGSXC9K) POC HCO3 ARTERIAL (test code = 27.4 MMOL/L 22.0-26.0 H FMCZQS6U) POC BASE EXCESS (test code = -0.2 MMOL/L -4.0-4.0 N POCBEA) POC O2 SATURATION (test code = 73.8 % 90-100 L POCO2S) FIO2 (test code = FIO2A) 100 % PaO2/FiO2 (test code = CHU4BXK8) 47.80 mm/Hg ABG DELIVERY (test code = MAAME) Vapotherm ABG SITE (test code = SITEA) Art Line MARTIN'S TEST (test code = ALLENS) N/A BASIC METABOLIC [id number] 12:31:00 Test Item Value Reference Range Interpretation [...] = POCGLU) 139 MG/DL 70-110 H HEMOGLOBIN [id number] 12:31:00 Test Item Value Reference Range Interpretation Comments HEMOGLOBIN ABG (test code = HGB/ABG) 8.7 G/DL 11.0-15.0 L [id number] 12:31:00 Test Item Value Reference Range Interpretation Comments HEMATOCRIT (test code = HCT/ABG) 26 % 33.0-45.0 L POC LACTIC [id number] 12:31:00 Test Item Value Reference Range Interpretation Comments POC LACTIC ACID (test code = 0.8 mmol/l 0.9-1.7 L POCLAC) [id number] 11:49:00 Test Item Value Reference Range Interpretation Comments PHOSPHOROUS (test code = PHOS) 4.5 MG/DL 2.5-4.9 N CALCIUM [id number] 09:46:00 Test Item Value Reference Range Interpretation Comments CALCIUM IONIZED (test code = TYREE) 1.17 MMOL/L 1.09-1.30 N GLUCOSE [id number] 08:28:00 Test Item Value Reference Range Interpretation Comments GLUCOSE BEDSIDE (test 114 MG/DL 70-110 H Perfor med by certified code = GLUBED) 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 [facility] GLUCOSE [id number] 04:20:00 Test Item Value Reference Range Interpretation Comments GLUCOSE BEDSIDE (test 113 MG/DL 70-110 H Perfor med by certified code = GLUBED) 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 [facility] BASIC METABOLIC [id number] 03:00:00 Test Item Value Reference Range Interpretation [...] 8.0-10.5 N CA) COMMENTS: POD #1HEPATIC FUNCTION [id number] 03:00:00 Test Item Value Reference Range Interpretation [...] 20-125 N code = ALKP) COMMENTS: POD #[id number] 03:00:00 Test Item Value Reference Range Interpretation Comments MAGNESIUM (test code = MAG) 2.41 mg/dL 1.80-2.40 H COMMENTS: POD #1CBC W/AUTO [id number] 02:32:00 Test Item Value Reference Range Interpretation [...] code NO = MDIFF) POC ARTERIAL BLOOD [id number] 02:12:00 Test Item Value Reference Range Interpretation Comments POC ARTERIAL BLOOD GAS PH (test 7.341 7.35-7.45 L code = POCPHA) POC ARTERIAL BLOOD GAS PCO2 50.1 mmHg 35.0-45 HH (test code = NNVYDF7R) POC TCO2 ARTERIAL (test code = 28.7 POCTCO2) POC ARTERIAL BLOOD GAS PO2 (test 95.7 mmHg 80-100.0 N code = ZBMFZ8D) POC HCO3 ARTERIAL (test code = 27.1 MMOL/L 22.0-26.0 H GRPVIX4E) POC BASE EXCESS (test code = 1.4 MMOL/L -4.0-4.0 N POCBEA) POC O2 SATURATION (test code = 96.8 % 90-100 N POCO2S) FIO2 (test code = FIO2A) 60 % PaO2/FiO2 (test code = VSB4SNX3) 159.50 mm/Hg ABG DELIVERY (test code = MAAME) BiPAP ABG VENT RESP RATE (test code = 25 /MIN RRA) ABG TEMPERATURE (test code = 98.7 F TEMPA) ABG SITE (test code = SITEA) Art Line BASIC METABOLIC [id number] 02:12:00 Test Item Value Reference Range Interpretation [...] = POCGLU) 113 MG/DL 70-110 H HEMOGLOBIN [id number] 02:12:00 Test Item Value Reference Range Interpretation Comments HEMOGLOBIN ABG (test code = HGB/ABG) 8.4 G/DL 11.0-15.0 L [id number] 02:12:00 Test Item Value Reference Range Interpretation Comments HEMATOCRIT (test code = HCT/ABG) 25 % 33.0-45.0 L POC LACTIC [id number] 02:12:00 Test Item Value Reference Range Interpretation Comments POC LACTIC ACID (test code = 0.8 mmol/l 0.9-1.7 L POCLAC) CREATININE [id number] 01:08:00 Test Item Value Reference Range Interpretation Comments CREATININE ABG (test code = 1.4 mg/dL 0.6-1.0 H CREAABG) HEMOGLOBIN [id number] 01:08:00 Test Item Value Reference Range Interpretation Comments HEMOGLOBIN ABG (test code = HGB/ABG) 5.9 G/DL 11.0-15.0 L [id number] 01:08:00 Test Item Value Reference Range Interpretation Comments HEMATOCRIT (test code = HCT/ABG) 17 % 33.0-45.0 L POC VENOUS BLOOD [id number] 01:08:00 Test Item Value Reference Range Interpretation Comments POC VENOUS BLOOD GAS PH (test 7.329 7.33-7.45 L code = POCPHV) POC VENOUS BLOOD GAS PCO2 (test 39.5 mmHg 43-47 L code = XAKYLA8M) POC VENOUS BLOOD GAS PO2 (test 33.3 mmHG 10-50 N code = RVUVN1M) POC TCO2 VENOUS (test code = 22.0 BCPAWT7R) POC HCO3 VENOUS (test code = 20.8 MMOL/L 22-27 L IOBLDQ3G) POC BASE EXCESS VENOUS (test code -5.2 MMOL/L -4.0-4.0 L = POCBEV) POC O2 SATURATION VENOUS (test 60.0 % 60-80 N code = NWCW9OZ) VENOUS BLOOD GAS FIO2 (test code 60 % = FIO2V) VENOUS BLOOD GAS DELIVERY (test BiPAP code = DELV) VENOUS BLOOD GAS TEMP (test code 98.6 F = TEMPV) VENOUS BLOOD GAS SITE (test code Tj Grant = SITEV) - XR CHEST 1 [id number] 00:00:00 [facility] 1945 Sex: F FAX:Jeffry Pennington MD [phone] [place]: St: ADM FAX: Abdiaziz Christiansen MD [phone] FAX: Solange Sawyer MD [phone] FAX: Colt Aguillon MD [phone] Name: SAÚL GILES [facility] : 1945 Age/S: 76/F [address] [place] [address] Unit #: [id number] Loc: G.2204 [place] [address] Phys: Solange Mohamud MD Acct: [id number] Dis Date: Status: ADM IN PHONE #: [phone] Exam Date: 12/21/2021 0647 FAX #: [phone] Reason: CONFIRM CHEST TUBE LOCATION EXAMS: CPT CODE: [id number] XR CHEST 1 V [id number] PROCEDURE INFORMATION: Exam: XR Chest Exam date and time: 12/21/2021 5:41 AM Age: 76 years old Clinical indication: Device placement; Chest tube; Additional info: Confirm chest tube location TECHNIQUE: Imaging protocol: Radiologic exam of the chest. Views: 1 view. COMPARISON: CR XR CHEST 1V 12/20/2021 5:40 AM FINDINGS: Tubes, catheters and devices: Support apparatus is unchanged in position. Lungs:Stable bilateral airspace opacities. Pleural spaces: Stable bilateral pleural effusions. Heart/Mediastinum: Stable cardiomediastinal silhouette. Bones/joints: Unchanged osseous structures. IMPRESSION: Stable examination. at 0700 Reported and signed by: Shemar Barnes M.D. CC: Jeffry Hsu MD; Abdiaziz Fuchs MD; Solange Mohamud MD; Colt Vail MD Technologist: Shell Min, RT(R); Debbie Fuentes RT(R) Trnscrd Date/Time /By: 12/21/2021 (699) : By: [email or web address] Orig Print D/T: S: 12/21/2021 (699) PAGE 1 Signed Report- US RETROPERITONEAL [id number] 00:00:00 [facility] 1945 Sex: F Name: SAÚL GILES [facility] : 1945 Age/S: 76 / F [address] [place] [address] Blvd Unit #: [id number] Loc: [place] [address] Phys: Jd Alva MD Acct: [id number] Dis Date: Status: ADM IN PHONE #:[phone] Exam Date: 12/21/2021 1800 FAX #: [phone] Reason: MARCELLO EXAMS: CPT CODE: [id number] US RETROPERITONEAL COM [id number] PROCEDURE INFORMATION: Exam: US Retroperitoneal; Complete; Kidneys and Bladder Exam date and time: 12/21/2021 5:39 PM Age: 76 years old Clinical indication: Screening exam; Other: Marcello TECHNIQUE: Imaging protocol: Real-time ultrasound of the retroperitoneum with image documentation. Complete exam focused on the kidneys and bladder. COMPARISON: US DUP VEIN RAJAN 12/17/2021 6:12 PM FINDINGS: Right kidney: The right kidney is normal in morphology and echogenicity without hydronephrosis or cortical thinning measuring 12.4 cm in length. Left kidney: Left kidney is also partially o bscured measuring approximately 12.4 cm in length with [...] Jd Alva MD; Colt Vail MD Technologist: Vivien Linares RDMS(AB) Trnscb Date/Time: 12/21/2021 (1926) [email or web address] Orig Print D/T: S: 12/21/2021 (1927) Probe: PAGE 1 Signed ReportGLUCOSE [id number] 22:19:00 Test Item Value Reference Range Interpretation Comments GLUCOSE BEDSIDE (test 126 MG/DL 70-110 H Perfor med by certified code = GLUBED) 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 [facility] BASIC METABOLIC [id number] 21:49:00 Test Item Value Reference Range Interpretation [...] mg/dL 8.0-10.5 N CA) POC ARTERIAL BLOOD [id number] 21:23:00 Test Item Value Reference Range Interpretation Comments POC ARTERIAL BLOOD GAS PH (test 7.328 7.35-7.45 L code = POCPHA) POC ARTERIAL BLOOD GAS PCO2 50.9 mmHg 35.0-45 HH (test code = NKFGUD7G) POC TCO2 ARTERIAL (test code = 28.3 POCTCO2) POC ARTERIAL BLOOD GAS PO2 (test 89.7 mmHg 80-100.0 N code = REZNL6E) POC HCO3 ARTERIAL (test code = 26.7 MMOL/L 22.0-26.0 H XDKLPE6P) POC BASE EXCESS (test code = 0.8 MMOL/L -4.0-4.0 N POCBEA) POC O2 SATURATION (test code = 96.0 % 90-100 N POCO2S) FIO2 (test code = FIO2A) 60 % PaO2/FiO2 (test code = VML9SOV2) 149.50 mm/Hg ABG DELIVERY (test code = MAAME) BiPAP ABG VENT RESP RATE (test code = 25 /MIN RRA) ABG TIDAL VOLUME (test code = 550 ml TVA) ABG TEMPERATURE (test code = 98.7 F TEMPA) ABG SITE (test code = SITEA) Art Line BASIC METABOLIC [id number] 21:23:00 Test Item Value Reference Range Interpretation [...] = POCGLU) 128 MG/DL 70-110 H HEMOGLOBIN [id number] 21:23:00 Test Item Value Reference Range Interpretation Comments HEMOGLOBIN ABG (test code = HGB/ABG) 7.8 G/DL 11.0-15.0 L [id number] 21:23:00 Test Item Value Reference Range Interpretation Comments HEMATOCRIT (test code = HCT/ABG) 23 % 33.0-45.0 L POC LACTIC [id number] 21:23:00 Test Item Value Reference Range Interpretation Comments POC LACTIC ACID (test code = 0.6 mmol/l 0.9-1.7 L POCLAC) GLUCOSE [id number] 19:21:00 Test Item Value Reference Range Interpretation Comments GLUCOSE BEDSIDE (test 136 MG/DL 70-110 H Perfor med by certified code = GLUBED) 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 [facility] CBC W/AUTO [id number] 17:35:00 Test Item Value Reference Range Interpretation [...] code NO = MDIFF) POC ARTERIAL BLOOD [id number] 17:08:00 Test Item Value Reference Range Interpretation Comments POC ARTERIAL BLOOD GAS PH (test 7.318 7.35-7.45 L code = POCPHA) POC ARTERIAL BLOOD GAS PCO2 55.5 mmHg 35.0-45 HH (test code = QKQUTV8Z) POC TCO2 ARTERIAL (test code = 30.2 POCTCO2) POC ARTERIAL BLOOD GAS PO2 (test 95.3 mmHg 80-100.0 N code = CSKUW3P) POC HCO3 ARTERIAL (test code = 28.5 MMOL/L 22.0-26.0 HH LSGHIC9P) POC BASE EXCESS (test code = 2.4 MMOL/L -4.0-4.0 N POCBEA) POC O2 SATURATION (test code = 96.5 % 90-100 N POCO2S) FIO2 (test code = FIO2A) 60 % PaO2/FiO2 (test code = NJL4MDI4) 158.83 mm/Hg ABG DELIVERY (test code = [...] (test code = N/A ALLENS) BASIC METABOLIC [id number] 17:08:00 Test Item Value Reference Range Interpretation [...] = POCGLU) 136 MG/DL 70-110 H HEMOGLOBIN [id number] 17:08:00 Test Item Value Reference Range Interpretation Comments HEMOGLOBIN ABG (test code = HGB/ABG) 7.5 G/DL 11.0-15.0 L [id number] 17:08:00 Test Item Value Reference Range Interpretation Comments HEMATOCRIT (test code = HCT/ABG) 22 % 33.0-45.0 L POC LACTIC [id number] 17:08:00 Test Item Value Reference Range Interpretation Comments POC LACTIC ACID (test code = 0.7 mmol/l 0.9-1.7 L POCLAC) GLUCOSE [id number] 16:30:00 Test Item Value Reference Range Interpretation Comments GLUCOSE BEDSIDE (test 139 MG/DL 70-110 H Perfor med by certified code = GLUBED) 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 [facility] POC ARTERIAL BLOOD [id number] 15:19:00 Test Item Value Reference Range Interpretation Comments POC ARTERIAL BLOOD GAS PH (test 7.318 7.35-7.45 L code = POCPHA) POC ARTERIAL BLOOD GAS PCO2 52.0 mmHg 35.0-45 HH (test code = SUAVGX7S) POC TCO2 ARTERIAL (test code = 28.3 POCTCO2) POC ARTERIAL BLOOD GAS PO2 (test 244.0 mmHg 80-100.0 HH code = [id number]) POC HCO3 ARTERIAL (test code = 26.7 MMOL/L 22.0-26.0 H [id number]) POC BASE EXCESS (test code = 0.6 MMOL/L -4.0-4.0 N POCBEA) POC O2 SATURATION (test code = 99.8 % 90-100 N POCO2S) FIO2 (test code = FIO2A) 100 % PaO2/FiO2 (test code = [id number]) 244.00 mm/Hg ABG DELIVERY (test code = [...] (test code = N/A ALLENS) BASIC METABOLIC [id number] 15:19:00 Test Item Value Reference Range Interpretation [...] = POCGLU) 144 MG/DL 70-110 H HEMOGLOBIN [id number] 15:19:00 Test Item Value Reference Range Interpretation Comments HEMOGLOBIN ABG (test code = HGB/ABG) 9.8 G/DL 11.0-15.0 L [id number] 15:19:00 Test Item Value Reference Range Interpretation Comments HEMATOCRIT (test code = HCT/ABG) 29 % 33.0-45.0 L POC LACTIC [id number] 15:19:00 Test Item Value Reference Range Interpretation Comments POC LACTIC ACID (test code = 0.5 mmol/l 0.9-1.7 L POCLAC) GLUCOSE [id number] 14:02:00 Test Item Value Reference Range Interpretation Comments GLUCOSE BEDSIDE (test 167 MG/DL 70-110 H [facility] med by certified code = GLUBED) 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 [facility] BASIC METABOLIC [id number] 12:24:00 Test Item Value Reference Range Interpretation [...] = 9.2 mg/dL 8.0-10.5 N CA) URINALYSIS [id number] 12:23:00 Test Item Value Reference Range Interpretation [...] A (test code = LEUU) UR SODIUM [id number] 12:23:00 Test Item Value Reference Range Interpretation Comments UR SODIUM RANDOM < 10 MEQ/L The Referen ce Range and (test code = Method Performa nce JESUS) specificationsh ave not been established for this fluid. The test result should be correlated into the clinical contex t forinterpretati on. UR CREATININE [id number] 12:23:00 Test Item Value Reference Range Interpretation Comments UR CREATININE 116.2 mg/dL The Reference Range and RANDOM (test code Method Per formance = CREATU) specificationsh ave not been establishe d for this fluid. The test resultshould be correlated into the clinical contex t forinterpretati on. GLUCOSE [id number] 12:13:00 Test Item Value Reference Range Interpretation Comments GLUCOSE BEDSIDE (test 180 MG/DL 70-110 H Perfor med by certified code = GLUBED) 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 [facility] POC ARTERIAL BLOOD [id number] 12:10:00 Test Item Value Reference Range Interpretation Comments POC ARTERIAL BLOOD GAS PH (test 7.291 7.35-7.45 LL code = POCPHA) POC ARTERIAL BLOOD GAS PCO2 59.2 mmHg 35.0-45 HH (test code = VXYJRP9B) POC TCO2 ARTERIAL (test code = 30.7 POCTCO2) POC ARTERIAL BLOOD GAS PO2 (test 137.8 mmHg 80-100.0 H code = KIVIY3N) POC HCO3 ARTERIAL (test code = 28.8 MMOL/L 22.0-26.0 HH ERHQYZ0W) POC BASE EXCESS (test code = 2.1 MMOL/L -4.0-4.0 N POCBEA) POC O2 SATURATION (test code = 98.8 % 90-100 N POCO2S) FIO2 (test code = FIO2A) 100 % PaO2/FiO2 (test code = NIH2HZF9) 137.80 mm/Hg ABG DELIVERY (test code = MAAME) CPAP ABG VENT RESP RATE (test code = 25 /MIN RRA) ABG TIDAL VOLUME (test code = 550 ml TVA) ABG PEEP (test code = PEEPA) 6 cmH2O ABG PRESSURE SUPPORT (test code 20 cmH2O = PSABG) ABG TEMPERATURE (test code = 97.3 F TEMPA) ABG SITE (test code = SITEA) Art Line BASIC METABOLIC [id number] 12:10:00 Test Item Value Reference Range Interpretation [...] = POCGLU) 175 MG/DL 70-110 H HEMOGLOBIN [id number] 12:10:00 Test Item Value Reference Range Interpretation Comments HEMOGLOBIN ABG (test code = HGB/ABG) 8.3 G/DL 11.0-15.0 L [id number] 12:10:00 Test Item Value Reference Range Interpretation Comments HEMATOCRIT (test code = HCT/ABG) 24 % 33.0-45.0 L POC LACTIC [id number] 12:10:00 Test Item Value Reference Range Interpretation Comments POC LACTIC ACID (test code = 0.6 mmol/l 0.9-1.7 L POCLAC) POC ARTERIAL BLOOD [id number] 09:48:00 Test Item Value Reference Range Interpretation Comments POC ARTERIAL BLOOD GAS PH (test 7.239 7.35-7.45 LL code = POCPHA) POC ARTERIAL BLOOD GAS PCO2 (test 67.0 mmHg 35.0-45 HH code = EKVRTN0G) POC TCO2 ARTERIAL (test code = 30.7 POCTCO2) POC ARTERIAL BLOOD GAS PO2 (test 90.6 mmHg 80-100.0 N code = GGGEE6Z) POC HCO3 ARTERIAL (test code = 28.6 MMOL/L 22.0-26.0 HH BLGYVD8F) POC BASE EXCESS (test code = 1.2 MMOL/L -4.0-4.0 N POCBEA) POC O2 SATURATION (test code = 94.9 % 90-100 N POCO2S) FIO2 (test code = FIO2A) 100 % PaO2/FiO2 (test code = KWL4LNS9) 90.60 mm/Hg ABG DELIVERY (test code = [...] (test code = ALLENS) N/A BASIC METABOLIC [id number] 09:48:00 Test Item Value Reference Range Interpretation [...] = POCGLU) 170 MG/DL 70-110 H HEMOGLOBIN [id number] 09:48:00 Test Item Value Reference Range Interpretation Comments HEMOGLOBIN ABG (test code = HGB/ABG) 7.6 G/DL 11.0-15.0 L [id number] 09:48:00 Test Item Value Reference Range Interpretation Comments HEMATOCRIT (test code = HCT/ABG) 22 % 33.0-45.0 L POC LACTIC [id number] 09:48:00 Test Item Value Reference Range Interpretation Comments POC LACTIC ACID (test code = 0.8 mmol/l 0.9-1.7 L POCLAC) GLUCOSE [id number] 09:10:00 Test Item Value Reference Range Interpretation Comments GLUCOSE BEDSIDE (test 191 MG/DL 70-110 H Perfor med by certified code = GLUBED) 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 [facility] BASIC METABOLIC [id number] 04:02:00 Test Item Value Reference Range Interpretation [...] 8.0-10.5 N CA) COMMENTS: POD #1HEPATIC FUNCTION [id number] 04:02:00 Test Item Value Reference Range Interpretation [...] 20-125 N code = ALKP) COMMENTS: POD #[id number] 04:02:00 Test Item Value Reference Range Interpretation Comments MAGNESIUM (test code = MAG) 2.32 mg/dL 1.80-2.40 N COMMENTS: POD #1PROTHROMBIN [id number] 03:45:00 Test Item Value Reference Range Interpretation [...] (to prevent recurrent infar ct). THROMBOPLASTIN TIME [id number] 03:45:00 Test Item Value Reference Range Interpretation Comments THROMBOPLASTIN TIME 25.0 Seconds 25.0-39.5 N Therape utic Range: PARTIAL (test code = 50.4 - 88.3 Seconds PTT) Effective 06/28/2018 [id number] 03:45:00 Test Item Value Reference Range Interpretation Comments FIBRINOGEN (test 278 MG/DL 160-450 N Excess admi nistration of code = FIB) anticoagulants and/or FibrinDegradati on Products may af fect Fibrinogen valu e. CBC W/AUTO [id number] 03:36:00 Test Item Value Reference Range Interpretation [...] code NO = MDIFF) POC ARTERIAL BLOOD [id number] 03:22:00 Test Item Value Reference Range Interpretation Comments POC ARTERIAL BLOOD GAS PH (test 7.278 7.35-7.45 LL code = POCPHA) POC ARTERIAL BLOOD GAS PCO2 66.1 mmHg 35.0-45 HH (test code = WYBZGA2Z) POC TCO2 ARTERIAL (test code = 32.8 POCTCO2) POC ARTERIAL BLOOD GAS PO2 (test 70.0 mmHg 80-100.0 L code = VZQCC1M) POC HCO3 ARTERIAL (test code = 30.8 MMOL/L 22.0-26.0 HH MAVCHJ0V) POC BASE EXCESS (test code = 4.1 MMOL/L -4.0-4.0 H POCBEA) POC O2 SATURATION (test code = 90.4 % 90-100 N POCO2S) FIO2 (test code = FIO2A) 60 % PaO2/FiO2 (test code = PFG5AFF3) 116.66 mm/Hg ABG PEEP (test code = PEEPA) 5 cmH2O ABG TEMPERATURE (test code = 98.9 F TEMPA) ABG SITE (test code = SITEA) Art Line BASIC METABOLIC [id number] 03:22:00 Test Item Value Reference Range Interpretation [...] = POCGLU) 172 MG/DL 70-110 H HEMOGLOBIN [id number] 03:22:00 Test Item Value Reference Range Interpretation Comments HEMOGLOBIN ABG (test code = HGB/ABG) 7.2 G/DL 11.0-15.0 L [id number] 03:22:00 Test Item Value Reference Range Interpretation Comments HEMATOCRIT (test code = HCT/ABG) 21 % 33.0-45.0 L POC LACTIC [id number] 03:22:00 Test Item Value Reference Range Interpretation Comments POC LACTIC ACID (test code = 0.8 mmol/l 0.9-1.7 L POCLAC) - XR CHEST 1 [id number] 00:00:00 [facility] 1945 Sex: F FAX:Jeffry Pennington MD [phone] [place]: GC St: ADM FAX: Abdiaziz Christiansen MD [phone] FAX: René Blancas [phone] FAX: Colt Aguillon MD [phone] Name: SAÚL GILES [facility] : 1945 Age/S: 76/F [address] [place] [address] Unit #: [id number] Loc: [place] [address]: René Villareal MD Acct: [id number] Dis Date: Status: ADM IN PHONE #: [phone] Exam Date: 12/20/2021 0656 FAX #: [phone] Reason: Cardiac Surgery Post Op EXAMS: CPT CODE: [id number] XR CHEST 1 V 41279 PROCEDURE INFORMATION: Exam: XR Chest Exam date and time: 12/20/2021 5:40 AM Age: 76 years old Clinical indication: Other: Cardiac surgery post op TECHNIQUE: Imaging protocol: Radiologic exam of the chest. Views: 1 view. COMPARISON: CR XR CHEST 1V 12/20/2021 12:08 AM FINDINGS: Tubes, catheters and devices: Right IJ catheter remains in place with [place] terminating in the region of the main pulmonary artery. Lungs: Persistent bibasilar pulmonary opacities. Preps mild pulmonary vascular congestion. Appearance is similar previous study. No new airspace disease. Pleural spaces: Likely small pleural ef fusions. No pneumothorax. Heart/Mediastinum: The heart is enlarged, unchanged. Status post median sternotomy. Pacer/ICD device and valve replacement noted. Mediastinal support drains noted. Bones/joints: Unchanged. Soft tissues: Unchanged IMPRESSION: Stable radiographic appearance of the chest. Elec tronically Signed by Cheng Berumen on 12/20/2021 at 0713 Reported and signed by: Demian Berumen M.D. CC: Jeffry Hsu MD; Abdiaziz Fuchs MD; René Villareal MD; Colt Vail MD Technologist: Xenia Bashir, RT(R); Shell Min RT(R) Trnscrd Date/Time/By: 12/20/2021 (712) : By: [email or web address] Orig Print D/T: S: 12/20/2021 (712) PAGE 1 Signed Report- XR CHEST 1 [id number] 00:00:00 [facility] : 1945 Sex: F FAX:Jeffry Pennington MD [phone] [place]: St: ADM FAX: Abdiaziz Christiansen MD [phone] FAX: Javi Elizondo MD [phone] FAX: Colt Aguillon MD [phone] Name: SAÚL GILES [facility] : 1945 Age/S: 76/F [address] [place] [address] Unit #: [id number] Loc: [address] [place] [address] Phys: Javi Elizondo MD Acct: [id number] Dis Date: Status: ADM IN PHONE #: [phone] Exam Date: 12/19/202110 FAX #: [phone] Reason: resp failurre, post MVR EXAMS: CPT CODE: [id number] XR CHEST 1 V 07813 PROCEDUREINFORMATION: Exam: XR Chest Exam date and [...] Javi Elizondo MD; Colt Vail MD Technologist: MAXIMILIANO Cain)Trnscrd Date/Time/By: 12/20/2021 (141) : By: [email or web address] Orig Print D/T: S: 12/20/2021 (0143) PAGE 1 Signed ReportBASIC METABOLIC [id number] 23:41:00 Test Item Value Reference Range Interpretation [...] code = 9.1 mg/dL 8.0-10.5 N CA) [id number] 23:41:00 Test Item Value Reference Range Interpretation Comments PHOSPHOROUS (test code = PHOS) 3.9 MG/DL 2.5-4.9 N [id number] 23:41:00 Test Item Value Reference Range Interpretation Comments MAGNESIUM (test code = MAG) 2.45 mg/dL 1.80-2.40 H CALCIUM [id number] 23:41:00 Test Item Value Reference Range Interpretation Comments CALCIUM IONIZED (test code = TYREE) 1.16 MMOL/L 1.09-1.30 N CBC W/AUTO [id number] 23:20:00 Test Item Value Reference Range Interpretation [...] code NO = MDIFF) POC ARTERIAL BLOOD [id number] 22:55:00 Test Item Value Reference Range Interpretation Comments POC ARTERIAL BLOOD GAS PH (test 7.301 7.35-7.45 L code = POCPHA) POC ARTERIAL BLOOD GAS PCO2 61.1 mmHg 35.0-45 HH (test code = CSWJCO0N) POC TCO2 ARTERIAL (test code = 32.0 POCTCO2) POC ARTERIAL BLOOD GAS PO2 (test 103.3 mmHg 80-100.0 H code = XZZDD3B) POC HCO3 ARTERIAL (test code = 30.1 MMOL/L 22.0-26.0 HH KANSPO9Q) POC BASE EXCESS (test code = 3.7 MMOL/L -4.0-4.0 N POCBEA) POC O2 SATURATION (test code = 97.0 % 90-100 N POCO2S) FIO2 (test code = FIO2A) 60 % PaO2/FiO2 (test code = GAX8XDL5) 172.16 mm/Hg ABG DELIVERY (test code = MAAME) BiPAP ABG PEEP (test code = PEEPA) 5 cmH2O ABG TEMPERATURE (test code = 98.8 F TEMPA) ABG SITE (test code = SITEA) Art Line BASIC METABOLIC [id number] 22:55:00 Test Item Value Reference Range Interpretation [...] = POCGLU) 178 MG/DL 70-110 H HEMOGLOBIN [id number] 22:55:00 Test Item Value Reference Range Interpretation Comments HEMOGLOBIN ABG (test code = HGB/ABG) 7.5 G/DL 11.0-15.0 L [id number] 22:55:00 Test Item Value Reference Range Interpretation Comments HEMATOCRIT (test code = HCT/ABG) 22 % 33.0-45.0 L POC LACTIC [id number] 22:55:00 Test Item Value Reference Range Interpretation Comments POC LACTIC ACID (test code = 0.8 mmol/l 0.9-1.7 L POCLAC) POC ARTERIAL BLOOD [id number] 21:08:00 Test Item Value Reference Range Interpretation Comments POC ARTERIAL BLOOD GAS PH (test 7.284 7.35-7.45 LL code = POCPHA) POC ARTERIAL BLOOD GAS PCO2 68.4 mmHg 35.0-45 HH (test code = IZHSWC3N) POC TCO2 ARTERIAL (test code = 34.4 POCTCO2) POC ARTERIAL BLOOD GAS PO2 (test 82.3 mmHg 80-100.0 N code = MIFVL9A) POC HCO3 ARTERIAL (test code = 32.4 MMOL/L 22.0-26.0 HH QYEWZQ8S) POC BASE EXCESS (test code = 5.7 MMOL/L -4.0-4.0 H POCBEA) POC O2 SATURATION (test code = 93.8 % 90-100 N POCO2S) FIO2 (test code = FIO2A) 60 % PaO2/FiO2 (test code = ZDP5GVB0) 137.16 mm/Hg ABG PEEP (test code = PEEPA) 5 cmH2O ABG TEMPERATURE (test code = 99 F TEMPA) ABG SITE (test code = SITEA) Art Line BASIC METABOLIC [id number] 21:08:00 Test Item Value Reference Range Interpretation [...] = POCGLU) 163 MG/DL 70-110 H HEMOGLOBIN [id number] 21:08:00 Test Item Value Reference Range Interpretation Comments HEMOGLOBIN ABG (test code = HGB/ABG) 7.9 G/DL 11.0-15.0 L [id number] 21:08:00 Test Item Value Reference Range Interpretation Comments HEMATOCRIT (test code = HCT/ABG) 23 % 33.0-45.0 L POC LACTIC [id number] 21:08:00 Test Item Value Reference Range Interpretation Comments POC LACTIC ACID (test code = 0.7 mmol/l 0.9-1.7 L POCLAC) POC ARTERIAL BLOOD [id number] 20:09:00 Test Item Value Reference Range Interpretation Comments POC ARTERIAL BLOOD GAS PH (test 7.283 7.35-7.45 LL code = POCPHA) POC ARTERIAL BLOOD GAS PCO2 68.1 mmHg 35.0-45 HH (test code = ZIIGQK5K) POC TCO2 ARTERIAL (test code = 34.2 POCTCO2) POC ARTERIAL BLOOD GAS PO2 (test 78.8 mmHg 80-100.0 L code = ALTIR7L) POC HCO3 ARTERIAL (test code = 32.1 MMOL/L 22.0-26.0 HH AKBUCH8Y) POC BASE EXCESS (test code = 5.5 MMOL/L -4.0-4.0 H POCBEA) POC O2 SATURATION (test code = 93.0 % 90-100 N POCO2S) FIO2 (test code = FIO2A) 60 % PaO2/FiO2 (test code = HXP3CET7) 131.33 mm/Hg ABG DELIVERY (test code = MAAME) BiPAP ABG PEEP (test code = PEEPA) 578 cmH2O ABG TEMPERATURE (test code = 99 F TEMPA) ABG SITE (test code = SITEA) Art Line BASIC METABOLIC [id number] 20:09:00 Test Item Value Reference Range Interpretation [...] = POCGLU) 171 MG/DL 70-110 H HEMOGLOBIN [id number] 20:09:00 Test Item Value Reference Range Interpretation Comments HEMOGLOBIN ABG (test code = HGB/ABG) 7.8 G/DL 11.0-15.0 L [id number] 20:09:00 Test Item Value Reference Range Interpretation Comments HEMATOCRIT (test code = HCT/ABG) 23 % 33.0-45.0 L POC LACTIC [id number] 20:09:00 Test Item Value Reference Range Interpretation Comments POC LACTIC ACID (test code = 0.8 mmol/l 0.9-1.7 L POCLAC) POC ARTERIAL BLOOD [id number] 19:05:00 Test Item Value Reference Range Interpretation Comments POC ARTERIAL BLOOD GAS PH (test 7.276 7.35-7.45 LL code = POCPHA) POC ARTERIAL BLOOD GAS PCO2 65.7 mmHg 35.0-45 HH (test code = EUARNB7B) POC TCO2 ARTERIAL (test code = 32.6 POCTCO2) POC ARTERIAL BLOOD GAS PO2 (test 203.2 mmHg 80-100.0 HH code = LFIZZ6X) POC HCO3 ARTERIAL (test code = 30.6 MMOL/L 22.0-26.0 HH QFPWZM9Q) POC BASE EXCESS (test code = 3.8 MMOL/L -4.0-4.0 N POCBEA) POC O2 SATURATION (test code = 99.6 % 90-100 N POCO2S) FIO2 (test code = FIO2A) 80 % PaO2/FiO2 (test code = DBE9OTF7) 254.00 mm/Hg ABG DELIVERY (test code = MAAME) BiPAP ABG VENT MODE (test code = CPAP/PS MODEA) ABG PRESSURE SUPPORT (test code 14 cmH2O = PSABG) ABG TEMPERATURE (test code = 98.6 F TEMPA) ABG SITE (test code = SITEA) Art Line MARTIN'S TEST (test code = N/A ALLENS) BASIC METABOLIC [id number] 19:05:00 Test Item Value Reference Range Interpretation [...] = POCGLU) 159 MG/DL 70-110 H HEMOGLOBIN [id number] 19:05:00 Test Item Value Reference Range Interpretation Comments HEMOGLOBIN ABG (test code = HGB/ABG) 8.2 G/DL 11.0-15.0 L [id number] 19:05:00 Test Item Value Reference Range Interpretation Comments HEMATOCRIT (test code = HCT/ABG) 24 % 33.0-45.0 L POC LACTIC [id number] 19:05:00 Test Item Value Reference Range Interpretation Comments POC LACTIC ACID (test code = 0.5 mmol/l 0.9-1.7 L POCLAC) POC ARTERIAL BLOOD [id number] 16:53:00 Test Item Value Reference Range Interpretation Comments POC ARTERIAL BLOOD GAS PH (test 7.333 7.35-7.45 L code = POCPHA) POC ARTERIAL BLOOD GAS PCO2 56.4 mmHg 35.0-45 HH (test code = NXVJGM2Z) POC TCO2 ARTERIAL (test code = 31.6 POCTCO2) POC ARTERIAL BLOOD GAS PO2 (test 99.2 mmHg 80-100.0 N code = MGCDI9N) POC HCO3 ARTERIAL (test code = 29.9 MMOL/L 22.0-26.0 HH GHRXWQ4M) POC BASE EXCESS (test code = 4.0 MMOL/L -4.0-4.0 N POCBEA) POC O2 SATURATION (test code = 97.0 % 90-100 N POCO2S) FIO2 (test code = FIO2A) 50 % PaO2/FiO2 (test code = BIP7CEU9) 198.40 mm/Hg ABG VENT MODE (test code = AC MODEA) ABG PEEP (test code = PEEPA) 5 cmH2O ABG PRESSURE SUPPORT (test code 10 cmH2O = PSABG) ABG SITE (test code = SITEA) Art Line BASIC METABOLIC [id number] 16:53:00 Test Item Value Reference Range Interpretation [...] = POCGLU) 125 MG/DL 70-110 H HEMOGLOBIN [id number] 16:53:00 Test Item Value Reference Range Interpretation Comments HEMOGLOBIN ABG (test code = HGB/ABG) 8.3 G/DL 11.0-15.0 L [id number] 16:53:00 Test Item Value Reference Range Interpretation Comments HEMATOCRIT (test code = HCT/ABG) 24 % 33.0-45.0 L POC LACTIC [id number] 16:53:00 Test Item Value Reference Range Interpretation Comments POC LACTIC ACID (test code = 0.9 mmol/l 0.9-1.7 N POCLAC) LACTIC ACID [id number] 15:09:00 Test Item Value Reference Range Interpretation Comments LACTIC ACID REPEAT (test code = 1.8 mmol/l 0.4-1.9 N LACTR) POC ARTERIAL BLOOD [id number] 14:56:00 Test Item Value Reference Range Interpretation Comments POC ARTERIAL BLOOD GAS PH (test 7.482 7.35-7.45 H code = POCPHA) POC ARTERIAL BLOOD GAS PCO2 37.2 mmHg 35.0-45 N (test code = YJHPIN7G) POC TCO2 ARTERIAL (test code = 29.1 POCTCO2) POC ARTERIAL BLOOD GAS PO2 (test 62.0 mmHg 80-100.0 L code = SLVEU5R) POC HCO3 ARTERIAL (test code = 27.9 MMOL/L 22.0-26.0 H YXXQHS3X) POC BASE EXCESS (test code = 4.3 MMOL/L -4.0-4.0 H POCBEA) POC O2 SATURATION (test code = 93.5 % 90-100 N POCO2S) FIO2 (test code = FIO2A) 40 % PaO2/FiO2 (test code = BFB8MKK0) 155.00 mm/Hg ABG DELIVERY (test code = MAAME) Adult Vent ABG VENT MODE (test code = AC MODEA) ABG VENT RESP RATE (test code = 24 /MIN RRA) ABG TIDAL VOLUME (test code = 450 ml TVA) ABG PEEP (test code = PEEPA) 5 cmH2O ABG TEMPERATURE (test code = 97.7 F TEMPA) ABG SITE (test code = SITEA) Art Line MRATIN'S TEST (test code = N/A ALLENS) BASIC METABOLIC [id number] 14:56:00 Test Item Value Reference Range Interpretation [...] = POCGLU) 126 MG/DL 70-110 H HEMOGLOBIN [id number] 14:56:00 Test Item Value Reference Range Interpretation Comments HEMOGLOBIN ABG (test code = HGB/ABG) 8.9 G/DL 11.0-15.0 L [id number] 14:56:00 Test Item Value Reference Range Interpretation Comments HEMATOCRIT (test code = HCT/ABG) 26 % 33.0-45.0 L POC LACTIC [id number] 14:56:00 Test Item Value Reference Range Interpretation Comments POC LACTIC ACID (test code = 1.6 mmol/l 0.9-1.7 N POCLAC) BASIC METABOLIC [id number] 13:38:00 Test Item Value Reference Range Interpretation [...] 8.0-10.5 N CA) COMMENTS: On arrivalHEPATIC FUNCTION [id number] 13:38:00 Test Item Value Reference Range Interpretation [...] 20-125 N code = ALKP) COMMENTS: On [id number] 13:38:00 Test Item Value Reference Range Interpretation Comments MAGNESIUM (test code = MAG) 2.45 mg/dL 1.80-2.40 H COMMENTS: On arrivalCBC W/AUTO [id number] 13:38:00 Test Item Value Reference Range Interpretation [...] code NO = MDIFF) COMMENTS: On arrivalRBC [id number] 13:38:00 Test Item Value Reference Range Interpretation Comments ANISOCYTOSIS (test code = ANISO) 1+ POLYCHROMASIA (test code = POLC) 1+ MACROCYTOSIS (test code = MACR) 1+ COMMENTS: On arrivalPLT [id number] 13:38:00 Test Item Value Reference Range Interpretation Comments PLATELET ESTIMATE (test code = 76-95 THOUSAND ADEQUATE PLTEST) COMMENTS: On arrivalPOC VENOUS BLOOD [id number] 13:30:00 Test Item Value Reference Range Interpretation Comments POC VENOUS BLOOD GAS PH (test 7.334 7.33-7.45 N code = POCPHV) POC VENOUS BLOOD GAS PCO2 (test 57.2 mmHg 43-47 HH code = GPRIAZ1E) POC VENOUS BLOOD GAS PO2 (test 35.1 mmHG 10-50 N code = LHITT8T) POC TCO2 VENOUS (test code = 32.2 PUDRGD7G) POC HCO3 VENOUS (test code = 30.5 MMOL/L 22-27 H YLHWEJ5Q) POC BASE EXCESS VENOUS (test code 4.6 MMOL/L -4.0-4.0 H = POCBEV) POC O2 SATURATION VENOUS (test 61.8 % 60-80 N code = FHOO5GZ) VENOUS BLOOD GAS FIO2 (test code 60 % = FIO2V) VBG TIDAL VOLUME (test code = 450 ml TVV) VENOUS BLOOD GAS PEEP (test code 5 cmH2O = PEEPV) VENOUS BLOOD GAS SITE (test code [place] = SITEV) BASIC METABOLIC [id number] 13:30:00 Test Item Value Reference Range Interpretation [...] = POCGLU) 141 MG/DL 70-110 H HEMOGLOBIN [id number] 13:30:00 Test Item Value Reference Range Interpretation Comments HEMOGLOBIN ABG (test code = HGB/ABG) 8.9 G/DL 11.0-15.0 L [id number] 13:30:00 Test Item Value Reference Range Interpretation Comments HEMATOCRIT (test code = HCT/ABG) 26 % 33.0-45.0 L POC LACTIC [id number] 13:30:00 Test Item Value Reference Range Interpretation Comments POC LACTIC ACID (test code = 1.9 mmol/l 0.9-1.7 H POCLAC) LACTIC [id number] 13:29:00 Test Item Value Reference Range Interpretation Comments LACTIC ACID (test code = LACT) 2.2 mmol/L 0.4-1.9 H PROTHROMBIN [id number] 13:22:00 Test Item Value Reference Range Interpretation [...] recurrent infar ct). COMMENTS: On arrivalTHROMBOPLASTIN TIME [id number] 13:22:00 Test Item Value Reference Range Interpretation Comments THROMBOPLASTIN TIME 24.4 Seconds 25.0-39.5 L Therape utic Range: PARTIAL (test code = 50.4 - 88.3 Seconds PTT) Effective 06/28/2018 COMMENTS: On arrivalPOC ARTERIAL BLOOD [id number] 13:02:00 Test Item Value Reference Range Interpretation Comments POC ARTERIAL BLOOD GAS PH (test 7.383 7.35-7.45 N code = POCPHA) POC ARTERIAL BLOOD GAS PCO2 51.0 mmHg 35.0-45 HH (test code = BPXIII0W) POC TCO2 ARTERIAL (test code = 32.0 POCTCO2) POC ARTERIAL BLOOD GAS PO2 (test 72.1 mmHg 80-100.0 L code = PJPLN8R) POC HCO3 ARTERIAL (test code = 30.4 MMOL/L 22.0-26.0 HH KQAWWH7R) POC BASE EXCESS (test code = 5.3 MMOL/L -4.0-4.0 H POCBEA) POC O2 SATURATION (test code = 94.0 % 90-100 N POCO2S) FIO2 (test code = FIO2A) 50 % PaO2/FiO2 (test code = RHE8VQN4) 144.20 mm/Hg ABG DELIVERY (test code = [...] (test code = N/A ALLENS) BASIC METABOLIC [id number] 13:02:00 Test Item Value Reference Range Interpretation [...] = POCGLU) 144 MG/DL 70-110 H HEMOGLOBIN [id number] 13:02:00 Test Item Value Reference Range Interpretation Comments HEMOGLOBIN ABG (test code = HGB/ABG) 9.2 G/DL 11.0-15.0 L [id number] 13:02:00 Test Item Value Reference Range Interpretation Comments HEMATOCRIT (test code = HCT/ABG) 27 % 33.0-45.0 L POC LACTIC [id number] 13:02:00 Test Item Value Reference Range Interpretation Comments POC LACTIC ACID (test code = 2.0 mmol/l 0.9-1.7 H POCLAC) [id number] 11:33:00 Test Item Value Reference Range Interpretation Comments ACT-ISTAT (test code 115 SEC 74-137 N Perform ed by certified = ACTI) 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 [facility] POC ARTERIAL BLOOD [id number] 11:25:00 Test Item Value Reference Range Interpretation Comments POC ARTERIAL BLOOD GAS PH (test 7.472 7.35-7.45 H code = POCPHA) POC ARTERIAL BLOOD GAS PCO2 (test 35.8 mmHg 35.0-45 N code = [id number]) POC TCO2 ARTERIAL (test code = 27.2 POCTCO2) POC ARTERIAL BLOOD GAS PO2 (test 303.1 mmHg 80-100.0 HH code = BNFRW2M) POC HCO3 ARTERIAL (test code = 26.2 MMOL/L 22.0-26.0 H [id number]) POC BASE EXCESS (test code = 2.5 MMOL/L -4.0-4.0 N POCBEA) POC O2 SATURATION (test code = 99.9 % 90-100 N POCO2S) BASIC METABOLIC [id number] 11:25:00 Test Item Value Reference Range Interpretation [...] = POCGLU) 168 MG/DL 70-110 H HEMOGLOBIN [id number] 11:25:00 Test Item Value Reference Range Interpretation Comments HEMOGLOBIN ABG (test code = HGB/ABG) 9.0 G/DL 11.0-15.0 L [id number] 11:25:00 Test Item Value Reference Range Interpretation Comments HEMATOCRIT (test code = HCT/ABG) 26 % 33.0-45.0 L POC LACTIC [id number] 11:25:00 Test Item Value Reference Range Interpretation Comments POC LACTIC ACID (test code = 2.3 mmol/l 0.9-1.7 H POCLAC) [id number] 11:05:00 Test Item Value Reference Range Interpretation Comments ACT-ISTAT (test code 491 SEC 74-137 H Perform ed by certified = ACTI) 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 [facility] POC ARTERIAL BLOOD [id number] 10:54:00 Test Item Value Reference Range Interpretation Comments POC ARTERIAL BLOOD GAS PH (test 7.467 7.35-7.45 H code = POCPHA) POC ARTERIAL BLOOD GAS PCO2 (test 42.3 mmHg 35.0-45 N code = [id number]) POC TCO2 ARTERIAL (test code = 31.9 POCTCO2) POC ARTERIAL BLOOD GAS PO2 (test 226.6 mmHg 80-100.0 HH code = [id number]) POC HCO3 ARTERIAL (test code = 30.6 MMOL/L 22.0-26.0 HH [id number]) POC BASE EXCESS (test code = 6.2 MMOL/L -4.0-4.0 H POCBEA) POC O2 SATURATION (test code = 99.8 % 90-100 N POCO2S) BASIC METABOLIC [id number] 10:54:00 Test Item Value Reference Range Interpretation [...] = POCGLU) 180 MG/DL 70-110 H HEMOGLOBIN [id number] 10:54:00 Test Item Value Reference Range Interpretation Comments HEMOGLOBIN ABG (test code = HGB/ABG) 8.5 G/DL 11.0-15.0 L [id number] 10:54:00 Test Item Value Reference Range Interpretation Comments HEMATOCRIT (test code = HCT/ABG) 25 % 33.0-45.0 L POC LACTIC [id number] 10:54:00 Test Item Value Reference Range Interpretation Comments POC LACTIC ACID (test code = 1.4 mmol/l 0.9-1.7 N POCLAC) [id number] 10:37:00 Test Item Value Reference Range Interpretation Comments ACT-ISTAT (test code 515 SEC 74-137 H Perform ed by certified = ACTI) 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 [facility] POC ARTERIAL BLOOD [id number] 10:23:00 Test Item Value Reference Range Interpretation Comments POC ARTERIAL BLOOD GAS PH (test 7.550 7.35-7.45 HH code = POCPHA) POC ARTERIAL BLOOD GAS PCO2 (test 35.2 mmHg 35.0-45 N code = [id number]) POC TCO2 ARTERIAL (test code = 31.8 POCTCO2) POC ARTERIAL BLOOD GAS PO2 (test 278.5 mmHg 80-100.0 HH code = NQKBK7U) POC HCO3 ARTERIAL (test code = 30.8 MMOL/L 22.0-26.0 HH SYIQCT1X) POC BASE EXCESS (test code = 7.9 MMOL/L -4.0-4.0 H POCBEA) POC O2 SATURATION (test code = 99.9 % 90-100 N POCO2S) BASIC METABOLIC [id number] 10:23:00 Test Item Value Reference Range Interpretation [...] = POCGLU) 197 MG/DL 70-110 H HEMOGLOBIN [id number] 10:23:00 Test Item Value Reference Range Interpretation Comments HEMOGLOBIN ABG (test code = HGB/ABG) 9.1 G/DL 11.0-15.0 L [id number] 10:23:00 Test Item Value Reference Range Interpretation Comments HEMATOCRIT (test code = HCT/ABG) 27 % 33.0-45.0 L POC LACTIC [id number] 10:23:00 Test Item Value Reference Range Interpretation Comments POC LACTIC ACID (test code = 1.1 mmol/l 0.9-1.7 N POCLAC) [id number] 09:56:00 Test Item Value Reference Range Interpretation Comments ACT-ISTAT (test code 642 SEC 74-137 H Perform ed by certified = ACTI) 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 [facility] POC ARTERIAL BLOOD [id number] 09:52:00 Test Item Value Reference Range Interpretation Comments POC ARTERIAL BLOOD GAS PH (test 7.532 7.35-7.45 HH code = POCPHA) POC ARTERIAL BLOOD GAS PCO2 (test 36.8 mmHg 35.0-45 N code = RMTCVO0W) POC TCO2 ARTERIAL (test code = 32.0 POCTCO2) POC ARTERIAL BLOOD GAS PO2 (test 427.8 mmHg 80-100.0 HH code = SJDSW1V) POC HCO3 ARTERIAL (test code = 30.8 MMOL/L 22.0-26.0 HH SWNZPY3K) POC BASE EXCESS (test code = 7.7 MMOL/L -4.0-4.0 H POCBEA) POC O2 SATURATION (test code = 100.0 % 90-100 N POCO2S) BASIC METABOLIC [id number] 09:52:00 Test Item Value Reference Range Interpretation [...] = POCGLU) 193 MG/DL 70-110 H HEMOGLOBIN [id number] 09:52:00 Test Item Value Reference Range Interpretation Comments HEMOGLOBIN ABG (test code = HGB/ABG) 9.2 G/DL 11.0-15.0 L [id number] 09:52:00 Test Item Value Reference Range Interpretation Comments HEMATOCRIT (test code = HCT/ABG) 27 % 33.0-45.0 L POC LACTIC [id number] 09:52:00 Test Item Value Reference Range Interpretation Comments POC LACTIC ACID (test code = 1.3 mmol/l 0.9-1.7 N POCLAC) [id number] 09:37:00 Test Item Value Reference Range Interpretation Comments ACT-ISTAT (test code 746 SEC 74-137 H Perform ed by certified = ACTI) 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 [facility] POC ARTERIAL BLOOD [id number] 09:18:00 Test Item Value Reference Range Interpretation Comments POC ARTERIAL BLOOD GAS PH (test 7.473 7.35-7.45 H code = POCPHA) POC ARTERIAL BLOOD GAS PCO2 (test 41.7 mmHg 35.0-45 N code = QTEECP8D) POC TCO2 ARTERIAL (test code = 31.9 POCTCO2) POC ARTERIAL BLOOD GAS PO2 (test 447.6 mmHg 80-100.0 HH code = RICCV6H) POC HCO3 ARTERIAL (test code = 30.6 MMOL/L 22.0-26.0 HH JWMTPJ1V) POC BASE EXCESS (test code = 6.4 MMOL/L -4.0-4.0 H POCBEA) POC O2 SATURATION (test code = 100.0 % 90-100 N POCO2S) BASIC METABOLIC [id number] 09:18:00 Test Item Value Reference Range Interpretation [...] = POCGLU) 208 MG/DL 70-110 H HEMOGLOBIN [id number] 09:18:00 Test Item Value Reference Range Interpretation Comments HEMOGLOBIN ABG (test code = HGB/ABG) 9.2 G/DL 11.0-15.0 L [id number] 09:18:00 Test Item Value Reference Range Interpretation Comments HEMATOCRIT (test code = HCT/ABG) 27 % 33.0-45.0 L POC LACTIC [id number] 09:18:00 Test Item Value Reference Range Interpretation Comments POC LACTIC ACID (test code = 1.2 mmol/l 0.9-1.7 N POCLAC) [id number] 08:57:00 Test Item Value Reference Range Interpretation Comments ACT-ISTAT (test code 740 SEC 74-137 H Perform ed by certified = ACTI) 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 [facility] POC ARTERIAL BLOOD [id number] 08:47:00 Test Item Value Reference Range Interpretation Comments POC ARTERIAL BLOOD GAS PH (test 7.421 7.35-7.45 N code = POCPHA) POC ARTERIAL BLOOD GAS PCO2 (test 42.1 mmHg 35.0-45 N code = OQVJAF1A) POC TCO2 ARTERIAL (test code = 28.7 POCTCO2) POC ARTERIAL BLOOD GAS PO2 (test 349.7 mmHg 80-100.0 HH code = NKQJE2S) POC HCO3 ARTERIAL (test code = 27.4 MMOL/L 22.0-26.0 H UPOCVG5C) POC BASE EXCESS (test code = 2.6 MMOL/L -4.0-4.0 N POCBEA) POC O2 SATURATION (test code = 99.9 % 90-100 N POCO2S) BASIC METABOLIC [id number] 08:47:00 Test Item Value Reference Range Interpretation [...] = POCGLU) 244 MG/DL 70-110 H HEMOGLOBIN [id number] 08:47:00 Test Item Value Reference Range Interpretation Comments HEMOGLOBIN ABG (test code = 10.3 G/DL 11.0-15.0 L HGB/ABG) [id number] 08:47:00 Test Item Value Reference Range Interpretation Comments HEMATOCRIT (test code = HCT/ABG) 30 % 33.0-45.0 L POC LACTIC [id number] 08:47:00 Test Item Value Reference Range Interpretation Comments POC LACTIC ACID (test code = 1.1 mmol/l 0.9-1.7 N POCLAC) CBC W/AUTO [id number] 08:23:00 Test Item Value Reference Range Interpretation [...] DIFF REQUIRED (test code NO = MDIFF) [id number] 07:46:00 Test Item Value Reference Range Interpretation Comments ACT-ISTAT (test code 138 SEC 74-137 H Perform ed by certified = ACTI) 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 [facility] POC ARTERIAL BLOOD [id number] 07:37:00 Test Item Value Reference Range Interpretation Comments POC ARTERIAL BLOOD GAS PH (test 7.439 7.35-7.45 N code = POCPHA) POC ARTERIAL BLOOD GAS PCO2 (test 38.6 mmHg 35.0-45 N code = ZMKZCZ3H) POC TCO2 ARTERIAL (test code = 27.3 POCTCO2) POC ARTERIAL BLOOD GAS PO2 (test 482.6 mmHg 80-100.0 HH code = SSIJT8N) POC HCO3 ARTERIAL (test code = 26.2 MMOL/L 22.0-26.0 H EGJJYM2T) POC BASE EXCESS (test code = 1.9 MMOL/L -4.0-4.0 N POCBEA) POC O2 SATURATION (test code = 100.0 % 90-100 N POCO2S) BASIC METABOLIC [id number] 07:37:00 Test Item Value Reference Range Interpretation [...] = POCGLU) 257 MG/DL 70-110 H HEMOGLOBIN [id number] 07:37:00 Test Item Value Reference Range Interpretation Comments HEMOGLOBIN ABG (test code = HGB/ABG) 9.5 G/DL 11.0-15.0 L [id number] 07:37:00 Test Item Value Reference Range Interpretation Comments HEMATOCRIT (test code = HCT/ABG) 28 % 33.0-45.0 L POC LACTIC [id number] 07:37:00 Test Item Value Reference Range Interpretation Comments POC LACTIC ACID (test code = 2.0 mmol/l 0.9-1.7 H POCLAC) COMPREHENSIVE METABOLIC [id number] 07:20:00 Test Item Value Reference Range Interpretation [...] TOTAL (test code = ALKP) THROMBOPLASTIN TIME [id number] 05:41:00 Test Item Value Reference Range Interpretation Comments THROMBOPLASTIN TIME 31.1 Seconds 25.0-39.5 N Therape utic Range: PARTIAL (test code = 50.4 - 88.3 Seconds PTT) Effective 06/28/2018 PROTHROMBIN [id number] 05:28:00 Test Item Value Reference Range Interpretation [...] recurrent infar ct). - XR CHEST 1 [id number] 00:00:00 [facility] 1945 Sex: F FAX:Jeffry Pennington MD [phone] [place]: St: ADM FAX: Abdiaziz Christiansen MD [phone] FAX: René Blancas [phone] FAX: Colt Aguillon MD [phone] Name: SAÚL GILES [facility] : 1945 Age/S: 76/F [address] [place] [address] Unit #: [id number] Loc: G.[address] [place] [address] Phys: René Villareal MD Acct: [id number] Dis Date: Status: ADM IN PHONE #: [phone] Exam Date: 12/19/2021 1336 FAX #: [phone] Reason: SURGICAL COUNT EXAMS: CPT CODE: [id number] XR CHEST 1 V 56646 PROCEDURE INFORMATION: Exam: XR Chest Exam date [...] left multi lead pacemaker. The right IJ [place]-Juanita catheter tip projects at the level of the right main p ulmonary artery. Lungs: Scattered bilateral central and bibasilar pulmonary opacities with superimposed areas of platelike atelectasis in the right lung base, right middle lobe and left mid lung. Pleural spaces: No visible pneumothorax line in the presence of bilateral chest tubes. Heart/Mediastinum: Interval median sternotomy with mitral valve replacement in keeping with immediate postoperative state. 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 Severe cervical and mild thoracic spondylosis. No destructive bone lesion. Soft tissues: No retained radiopaque foreign body resembling a needle is identified in the chest or visualized upper abdomen considering history. IMPRESSION: 1. No retained metallic structure resembling a surgical needle in the chest or visualized upper abdomen. 2. Line and tube positions as described. 3. Satisfactory postoperative appearance of the mediastinum with no visible procedural complication. 4. Bilateral platelike atelectasis and central/bibasilar pulmonary opacities, probably representing atelectasis and or secretions. Findings were conveyed to the Surgical team at 12:30 p.m. PAGE 1 Signed Report (CONTINUED) FAX: Jeffry Pennington MD [phone] [place]: St: ADM FAX: Abdiaziz Christiansen MD [phone] FAX: René Blancas [phone] FAX: Colt Aguillon MD [phone] Name: SAÚL GILES [facility] : 1945 Age/S: 76/F [address] [place] [address] Unit #: [id number] Loc: [address] [place] [address] Phys: René Villareal MD Acct: [id number] Dis Date: Status: ADM IN PHONE #: [phone] Exam Date: 12/19/2021 1336 FAX #: [phone] Reason: SURGICAL COUNT EXAMS: CPT CODE: [id number] XR CHEST 1 V 58594 (Continued) at 1402 Reported and signed by: Jonathan Calles M.D. CC: Jeffry Hus MD; Abdiaziz Fuchs MD; René Villareal MD; Colt Vail MD Technologist: RT Osman(Marla) Trnscreyes Date/Time/By: 12/19/2021 (1401) : By: [email or web address] Orig Pr int D/T: S: 12/19/2021 (0373) PAGE 2 Signed Report- XR CHEST 1 [id number] [facility] : 1945 Sex: F FAX:Jeffry Pennington MD [phone] [place]: St: [facility] FAX: Abdiaziz Christiansen MD [phone] FAX: René Blancas [phone] FAX: Colt Aguillon MD [phone] Name: SAÚL GILES [facility] : 1945 Age/S: 76/F [address] [place] [address] Unit #: [id number] Loc: G.2201 [place] [address] Phys: René Villareal MD Acct: [id number] Dis Date: Status: ADM IN PHONE #: [phone] Exam Date: 12/19/2021 1315 FAX #: [phone] Reason: Cardiac Surgery Post Op EXAMS: CPT CODE: [id number] XR CHEST 1 V 22075 PROCEDURE INFORMATION: Exam: XR Chest Exam date [...] of the sternoclavicular joints. There is a [place]-Juanita catheter in place. Lungs:There are patchy opacities throughout the lungs, which could represent atelectasis. Increased interstitial markings, which could represent pulmonary edema. Pleural spaces: Unremarkable. No pleural effusion. No pneumothorax. Heart/Mediastinum: The patient is status post valve replacement. There is cardiomegaly. Bones/joints: Status post median sternotomy. IMPRESSION: 1. There are patchy opacities throughout the lungs, which could represent atelectasis. 2. Increased interstitial markings, which couldrepresent pulmonary edema. [id number] Reported and signed by: Syeda Leblanc M.D. CC: Jeffry Hsu MD; Abdiaziz Fuchs MD; René Villareal MD; Colt Vail MD Technologist: RT Kimberly(R) Trnscrd Date/Time/By: 12/19/2021 (151) : By: [email or web address] Orig Print D/T: S: 12/19/2021 (1860) PAGE 1 Signed ReportGLUCOSE [id number] 21:03:00 Test Item Value Reference Range Interpretation Comments GLUCOSE BEDSIDE (test 260 MG/DL 70-110 H Perfor med by certified code = GLUBED) 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 [facility] GLUCOSE [id number] 16:49:00 Test Item Value Reference Range Interpretation Comments GLUCOSE BEDSIDE (test 226 MG/DL 70-110 H Perfor med by certified code = GLUBED) 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 [facility] GLUCOSE [id number] 13:03:00 Test Item Value Reference Range Interpretation Comments GLUCOSE BEDSIDE (test 148 MG/DL 70-110 H Perfor med by certified code = GLUBED) 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 [facility] GLUCOSE [id number] 11:18:00 Test Item Value Reference Range Interpretation Comments GLUCOSE BEDSIDE (test 153 MG/DL 70-110 H Perfor med by certified code = GLUBED) 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 [facility] B-TYPE NATRIURETIC [id number] 05:59:00 Test Item Value Reference Range Interpretation Comments B-TYPE NATRIURETIC PEPTIDE (test 90.0 PG/ML 0-100 N code = BNP) [id number]%2021-12-18 05:39:00 Test Item Value Reference Range Interpretation Comments HGBA1C% (test code = HGBA1C%) 6.2 %A1C 4.8-6.0 H CBC W/AUTO [id number] 05:26:00 Test Item Value Reference Range Interpretation [...] REQUIRED (test code NO = MDIFF) PROTHROMBIN [id number] 04:51:00 Test Item Value Reference Range Interpretation [...] (to prevent recurrent infar ct). THROMBOPLASTIN TIME [id number] 04:51:00 Test Item Value Reference Range Interpretation Comments THROMBOPLASTIN TIME 31.0 Seconds 25.0-39.5 N Therape utic Range: PARTIAL (test code = 50.4 - 88.3 Seconds PTT) Effective 06/28/2018 COMPREHENSIVE METABOLIC [id number] 04:47:00 Test Item Value Reference Range Interpretation [...] (test code = LDL) NEAR OPTIM AL/ABOVE [id number] [id number] 89 HIGH>GV=025 SOUMYA Y HIGH*Guidelines provided by the National Choles terol EducationProgra Adult Treatment Panel III URINALYSIS [id number] 03:32:00 Test Item Value Reference Range Interpretation [...] /LPF NONE SEEN COVID 19 Asymptomatic IH [id number] 20:44:00 Test Item Value Reference Range Interpretation [...] vi carleen (antigen) in th e sample.This yn t has not been FDA cleare d or approved; the t est hasbeen authori zed by FDA under an Em ergency Use Authorizati on(EUA) for use by labo ratories certified under the CLIA thatmeet the requirements to perform moderate, high or waivedcomplexit y tests. GLUCOSE [id number] 19:26:00 Test Item Value Reference Range Interpretation Comments GLUCOSE BEDSIDE (test 213 MG/DL 70-110 H Perfor med by certified code = GLUBED) 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 [facility] GLUCOSE [id number] 13:37:00 Test Item Value Reference Range Interpretation Comments GLUCOSE BEDSIDE (test 140 MG/DL 70-110 H Perfor med by certified code = GLUBED) 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 [facility] [id number] 11:10:00 Test Item Value Reference Range Interpretation Comments ACT-ISTAT (test code 265 SEC 74-137 H Perform ed by certified = ACTI) 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 [facility] [id number] 10:56:00 Test Item Value Reference Range Interpretation Comments ACT-ISTAT (test code 335 SEC 74-137 H Perform ed by certified = ACTI) 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 [facility] GLUCOSE [id number] 08:08:00 Test Item Value Reference Range Interpretation Comments GLUCOSE BEDSIDE (test 164 MG/DL 70-110 H Perfor med by certified code = GLUBED) 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 [facility] - CT CHEST W/O [id number] 00:00:00 [facility] 1945 Sex: F Name: SAÚL GILES [facility] : 1945 Age/S: 76 / F [address] [place] [address] Bl Unit #: [id number] Loc: [place] [address] Phys: Kena Macedo APPLICATION PERFORMANCE ENGINEER Acct: [id number] Dis Date: Status: ADM INPHONE #: [phone] Exam Date: 12/17/2021 1734 FAX #: [phone] Reason: Cardiac Surgery Pre Op Report Has Been Amended EXAMS: CPT CODE: [id number] CT CHEST W/O CONTRAST 32025 Addendum - 12/17/2021 SIGNED 12/17/2021 ADDENDUM: [id number] CT/CTCHESTWO There is a 4 mm noncalcified right middle lobe nodule 65 of series 2. For patients at low risk (minimal or absent history of smoking and of otherknown risk factors), no routine follow-up is indicated. For patients at high risk (history of smoking or of other known risk factors), consider optional CT Chest at 12 months. (Reference: Shefali) References: Shefali Holly et al. Guidelines for Management of Incidental Pulmonary Nodules Detected on CT Images: From the Fleischner Society 2017. Radiology. 2017;284(1):228-243. at 1849 Reported and signed by: Jose Rankin D.O. ReportPROCEDURE INFORMATION: Exam: CT Chest Without Contrast; Diagnostic [...] exams where dose is matched to clinical in dication); or iterative reconstruction. COMPARISON: DX XR CHEST [...] 1 Signed Report (CONTINUED) [facility] [place]: 1945 Age/S: 76 / F [address] [place] [address] Blvd Unit #: [id number] Loc: [place] [address] Phys: Kena Arboleda APPLICATION PERFORMANCE ENGINEER Acct: [id number] Dis Date: Status: ADM IN PHONE #: [phone] Exam Date: 12/17/20211733 FAX #: [phone] Reason: Cardiac Surgery Pre Op Report Has Been Amended EXAMS: CPT CODE: [id number] CT CHEST W/O CONTRAST 12256 (Continued) Lungs: There is atelectasis withinthe lungs. There is a 4 mm noncalcified right middle lobe nodule 65 of series 2. There is mild interstitial pulmonary edema. There is pulmonary atelectasis but no evidence of pneumonia. Pleural spaces:Unremarkable. No pneumothorax. No pleural effusion. Heart: See "Tubes, catheters and devices" finding. Lymph nodes: Unremarkable. No enlarged lymph nodes. Vasculature: There are mild calcifications ofthe aorta. There is no aortic aneurysm or acute process. Bones/joints: There are diffuse enthesopathic changes of the spine consistent with benign diffuse idiopathic skeletal hyperostosis (DISH). Thereis no acute osseous fracture or dislocation. Soft tissues: Unremarkable. IMPRESSION: 1. There is a 2lead cardiac pacemaker with control in the left chest. The leads terminate in the regions of the right cardiac ventricle and coronary sinus. There is a severe burden of three-vessel coronary artery atherosclerotic vascular calcification. There is cardiomegaly. There is no pericardial effusion. 2. There is mild interstitial pulmonary edema. There is pulmonary atelectasis but no evidence of pneumonia. at 1848 Reported and signed by:Jose Rankin D.O. CC: Jeffry Hsu MD; Abdiaziz Fuchs MD; Kena Macedo NP; Colt Vail MD Technologist:David Sanders, RT(R)(CT) CTDI: DLP: Trnscb Date/Time: 12/17/2021 (1847) [email or web address] Orig Print D/T: S: 12/17/2021 (1848) PAGE 2 Signed Report- DUP EXTRACRANIAL [id number] 00:00:00 [facility] 1945 Sex: F Name: SAÚL GILES [facility] : 1945 Age/S: 76 / F [address] [place] [address] Unit #: [id number] Loc: VLADIMIR Oscar [address] Phys: Kena Macedo NP Acct: [id number] Dis Date: Status: ADM IN PHONE #: [phone] Exam Date: 12/17/20211846 FAX #: [phone] Reason: Cardiac Surgery Pre OpEXAMS: CPT CODE: [id number] DUP EXTRACRANIAL RAJAN 74406 PROCEDURE INFORMATION: Exam: US Duplex Bilateral Extracranial [...] 1 Signed Report (CONTINUED) Name: SAÚL GILES [facility] : 1945 Age/S: 76 / F [address] [place] [address] Unit #: [id number] Loc: VLADIMIR Oscar [address] Phys: Kena Macedo APPLICATION PERFORMANCE ENGINEER Acct: [id number] Dis Date: Status: ADM IN PHONE #: [phone] Exam Date: 2021 184 FAX #: [phone] Reason: Cardiac Surgery Pre Op EXAMS: CPT CODE: [id number] DUP EXTRACRANIAL RAJAN 10877 (Continued) CC: Jeffry Hsu MD; Abdiaziz Fuchs MD; Kena Macedo APPLICATION PERFORMANCE ENGINEER; Colt Vail MD Technologist: Anu Denis Trnscb Date/Time: 12/17/2021 (1901) [email or web address] Orig Print D/T:S: 12/17/2021 (1902) Probe: PAGE 2 Signed Report- DUP VEIN [id number] 00:00:00 [facility] : 1945 Sex: F Name: SAÚL GILES [facility] : 1945 Age/S: 76 / F [address] [place] [address] Unit #: [id number] Loc: [place] [address] Phys: Kena Macedo NP Acct: [id number] Dis Date: Status: ADM IN PHONE #: [phone] Exam Date: 12/17/2021 184 FAX #: [phone] Reason: Cardiac Surgery Pre Op EXAMS: CPT CODE: [id number] DUP VEIN RAJAN 94889 PROCEDURE INFORMATION: Exam: US Duplex Lower Extremity Veins; Vein mapping Exam date and time: 12/17/2021 6:12 PM Age: 76 years old Clinical indication: Screening exam; Pre op; Additional info: Cardiac surgery pre op TECHNIQUE: Imaging protocol: Real-timeduplex ultrasound of the Lower Extremities with 2-D jimenez scale, color Doppler flow and spectral waveform analysis with image documentation. Complete exam focused on the bilateral lower extremity veinsfor vein mapping. COMPARISON: No relevant prior studies available. [...] lower le.2 mm Left superficial veins: Normal Doppler waveforms. Normal compressibility. Greater saphenous vein is patent. Left greater saphenous vein- upper thigh: 11.0 mm Left greater saphenous vein-mid thigh: 8.0 mm Left greater saphenous vein-lowerthigh: 6.5 mm Left greater saphenous vein-upper le.1 mm Left greater saphenous vein-mid le.5mm Left greater saphenous vein-lower le.9 mm Soft tissues: Unremarkable. IMPRESSION: Greater saphenous vein is patent. Vein mapping as described. at 2001 Reported and signed by: Anoop Lilly M.D. CC: Jeffry Hsu MD; Abdiaziz Fuchs MD; Kena Macedo APPLICATION PERFORMANCE ENGINEER; Colt Vail MD Technologist: [facility]u Denis [facility] Date/Time: 12/17/2021 (2001) [email or web address] Orig Print D/T: S: 12/17/2021 (2001) Probe: [...] (test code NO = MDIFF) BASIC METABOLIC [id number] 13:35:00 Test Item Value Reference Range Interpretation [...] = 9.6 mg/dL 8.0-10.5 N CA) PROTHROMBIN [id number] 13:09:00 Test Item Value Reference Range Interpretation [...] risk), 2. 5 - 3.5 Presence of Vidhya pus Anticoagulant o r Antiphospholipi d Antibodies, Pre vention of systemic emb olism - Acute Myocardia l Infarction (to prevent recurrent infar ct). - XR CHEST 2 [id number] 00:00:00 [facility] : 1945 Sex: F FAX:Abdiaziz Christiansen MD [phone] [place]: St: PRE FAX: Colt Aguillon MD [phone] Name: SAÚL GILES [facility] : 1945 Age/S: 76/F [address] [place] [address] Unit #: [id number] Loc: [place] [address] Phys: Colt Vail MD Acct: [id number] Dis Date: Status: PRE [facility] PHONE #: [phone] Exam Date: 12/12/2021 1333 FAX #: [phone] Reason: PREOP EXAMS: CPT CODE: [id number] XR CHEST 2 V [id number] INFORMATION: Exam: XR Chest Exam date and time: 12/12/2021 1:33 PM Age: 76 years old Clinical indication: Other: Preop TECHNIQUE: Imaging protocol: Radiologic exam [...] central venous congestion. Vasculature: There is atherosclerotic reyna cification of the aorta. Bones/joints: No gross acute findings. IMPRESSION: Cardiomegaly with minimal central venous congestion. at 1531 Reported and signed by: Amina Garcia D.O. CC: Abdiaziz Fuchs MD; Colt Vail MD Technologist: RT Kimberly(R) Trnscrd Date/Time/By: 12/12/2021 (0381) : By: [email or web address] Orig Print D/T:S: 12/12/2021 (3881) PAGE 1 Signed Report
[2022-05-25 14:37] LABS: Urine Blood Trace-lysed (Negative); Urine Glucose Negative (Negative); Urine Protein Negative (Negative); Urine pH 5.5 (5.0-7.0)
--- NOTE | 2022-05-25 14:39 | RAD REPORT ---
[facility] DES[facility]25[facility]2022 2:23 pm CLINICAL HISTORY: Dyspnea;Cough COMPARISON: Chest Single View dated 03/27/2022; Chest Single View dated 03/24/2022; Chest Single View dated 11/05/2021; Chest Pa And Lat (2 Views) dated 04/22/2018 TECHNIQUE: Portable AP view of the chest. FINDINGS: The lungs are clear.Right midlung atelectasis/discrete non prior exam. No pneumothorax or effusion. The mediastinal contours are stable, with sequelae of prior median sternotomy and mitral va lve replacement. Probable prior CABG. Left chest wall pacer/AICD unchanged. IMPRESSION: No acute cardiopulmonary process. Stable findings as above.
[2022-05-25 14:45] LABS: Absolute Lymphocytes (CBC) 0.6 K/uL (0.7-4.9); Hematocrit 33.5 % (36.0-45.0); Lymphocytes % 8.6 % (15.3-44.8); MCV 100.5 fL (80-100); MPV 8.6 fL (7.6-11.3); RBC Red Blood Cell Count 3.33 M/uL (3.86-4.86)
[2022-05-25 14:46] LABS: Protime INR 1.24
[2022-05-25 15:07] LABS: Albumin 2.9 g/dL (3.4-5.0); Bilirubin Direct 0.3 mg/dL (0-0.2); Bilirubin Total 0.9 mg/dL (0.2-1.0); Potassium 3.5 mmol/L (3.5-5.1); Protein, Total 8.5 g/dL (6.4-8.2); Troponin High Sensitivity 3.7 pg/mL (<58.9)
[2022-05-25 16:19] LABS: SARS-COV-2 RT PCR POSITIVE (NEGATIVE)
[2022-05-25] MEDS ORDERED: METHYLPREDNISOLONE 125 MG INJ ONE (16:33)
[2022-05-25] MEDS ORDERED: LEVALBUTEROL 1.25 MG/3 ML NEB ONE (16:33)
--- NOTE | 2022-05-25 17:28 | RAD REPORT ---
EXAM DESCRIPTION: CT - Chest For Pe Angio - 05/25/2022 5:05 pm CLINICAL HISTORY: DYSPNEA Low SpO2. History of AFib and hypertension COMPARISON: Chest For Pe Angio dated 11/08/2021; CTANGIO CHEST dated 10/12/2010 TECHNIQUE: Thin axial CT images of the chest were obtained following administration of 95 mL Isovue 370 IV contrast. Multiplanar reconstructions, and maximum intensity projection reconstructions were g enerated and reviewed. Exam utilizes a protocol for optimal evaluation of pulmonary arterial tree. All CT scans are performed using dose optimization technique as appropriate and may include automated exposure control or mA/KV adjustment according to patient size. FINDINGS: Pulmonary arteries are normal. No emboli or other suspicious finding. No acute or signific ant aorta findings. Ascending thoracic aorta is normal in caliber, 3.4 centimeter. Scattered geographic regions of ground-glass opacification and mild tree-in-bud opacities throughout the lungs. Other peripheral subsegmental opacities are stable, suggestive of atelectasis. No pleural thickening or pleural effusion. No pneumothorax. Prostatic mitral valve in place. Sequelae of prior median sternotomy and CABG. Left chest wall pacer/ AICD in place. No abnormal mediastinal or hilar masses or lymphadenopathy seen. No chest wall mass or abnormal axill iary lymphadenopathy. IMPRESSION: No evidence of acute central pulmonary emboli. Geographic regions of ground-glass opacification and mild tree-in-bud opacities, could reflect infect ious or inflammatory process such as bronchitis or early pneumonia.
[2022-05-25] MEDS ORDERED: CEFTRIAXONE 1000 MG/VIAL ONE (18:04)
[2022-05-25] MEDS ORDERED: NA CHLORIDE 0.9% 50 ML ONE (18:04)
--- NOTE | 2022-05-25 18:53 | P.HP ---
Certification for Inpatient Patient admitted to: Inpatient With expected LOS: >2 Midnights Patient will require the following post-hospital care: None Practitioner: I am a practitioner with admitting privileges, knowledge of patient current condition, hospital course, and medical plan of care. Services: Services provided to patient in accordance with Admission requirements found in Title 42 Section 412.3 of the Code of Federal Regulations Patient History Date of Service: 05/25/22 Reason for admission: Pneumonia, hypoxia History of Present Illness: 76-year-old female with history of chronic diastolic congestive heart failure, atrial fibrillation, insulin-dependent diabetes, hypertension, hypothyroidism presents to the emergency department for hypoxia. She lives at home with her daughter who helps care for her, they monitor her oxygen level every other day or so, they noticed this morning her oxygen level was low in the 70s to 80s, they did some breathing exercises and improved to around 90%, she then went to cardiac rehab where her oxygen level was again low and from there she was referred to the emergency department for evaluation. Patient was recently admitted in March with decompensated CHF, COVID 19. She did test positive for COVID again today although it is unclear if this is continuation of her previous infection. She was evaluated in the emergency department her labs were significant for normal white blood cell count BNP 1625 chest CTA was performed which revealed geographic regions of groundglass opacification and mild tree-in-bud opacities, could reflect infectious or inflammatory process such as bronchitis or early pneumonia. She is given antibiotics in the EDRocephin, she is tolerating nasal cannula well at this time. Upon reviewing previous discharge summary she was discharged on home oxygen2 L although she reports that this was never delivered by the company and she had not been needing it. Reports her baseline oxygen saturations around 90 to 92% and has been this way since a few weeks after her discharge until today. Will admit for further evaluation and management of hypoxia, pneumonia. She denies any recent weight gain check she reports she is about 5 pounds under her base weight, no obvious CHF exacerbation at this time. Allergies ciprofloxacin [From Cipro] Allergy (Mild, Verified 03/24/22 22:35) Joint Pain morphine Allergy (Verified 03/24/22 22:35) Itching/Hives/Rash Home Medications: Insulin Detemir [Levemir] 50 units SQ BID 01/10/12 Omeprazole [Prilosec] 20 mg PO DAILY 01/06/13 Furosemide 80 mg PO BID 12/09/20 Insulin Lispro [Humalog*] See Protocol SQ TIDWM 12/09/20 Potassium Chloride 20 meq PO BID 12/09/20 Adalimumab [Humira] 40 mg SQ Q14D 03/25/22 Aspirin [Adult Low Dose Aspirin EC] 81 mg PO DAILY 03/25/22 Atorvastatin Calcium [Lipitor] 40 mg PO BEDTIME 03/25/22 Clopidogrel Bisulfate [Plavix] 75 mg PO DAILY 03/25/22 Folic Acid 1 mg PO DAILY 03/25/22 Lisinopril [Zestril] 5 mg PO DAILY 03/25/22 Methotrexate [Methotrexate*] 5 pill PO Q7D 03/25/22 Metoprolol Tartrate 25 mg PO DAILY 03/25/22 Multivit-Min/Folic Acid/Vit K1 [Multi For Her 50 Plus Softgel] 1 each PO DAILY 03/25/22 Trazodone HCl 50 mg PO BEDTIME 03/25/22 Vit A/C/E/Zinc/Selenium/Copper [Vision Formula Tablet] 1 each PO DAILY 03/25/22 metOLazone [Zaroxolyn] 2.5 mg PO DIRECTED 03/25/22 - Past Medical/Surgical History Diabetic: Yes -: IDDM2 -: CHROHN -: HTN -: AFIB -: LYMPHEDEMA -: HLD -: Chronic diastolic congestive heart failure -: cardioversion X6 -: Cardiac ablasions X2 -: hysterectomy -: Cholecystectomy -: colon removed (5in. of sm and lg. intestine) -: pacemaker -: mitral valve replacement and cardiac bypass Dec 2021 -: Pericardiectomy Psychosocial/ Personal History: Patient lives at home with her daughter - Family History Mother -: Cancer Father -: Heart disease - Social History Smoking Status: Former smoker Alcohol use: No CD- Drugs: No Caffeine use: No Place of Residence: Home Review of Systems 10-point ROS is otherwise unremarkable General: Chills Respiratory: Cough, Shortness of Breath, SOB with Excertion Physical Examination - Physical Exam General: Alert, In no apparent distress, Oriented x3, Obese HEENT: Atraumatic, PERRLA, Mucous membr. moist/pink, EOMI, Sclerae nonicteric Neck: Supple, 2+ carotid pulse no bruit, No LAD, Without JVD or thyroid abnormality Respiratory: Diminished Cardiovascular: Irregular heart rate/rhythm (Paced rhythm) Capillary refill: <2 Seconds Gastrointestinal: Normal bowel sounds, No tenderness Musculoskeletal: No tenderness Integumentary: No rashes Neurological: Normal speech, Normal strength at 5/5 x4 extr, Normal tone - Studies Laboratory Data (last 24 hrs) 05/25/22 14:29: PT 13.6 H, INR 1.24, APTT 28.1 05/25/22 14:29: WBC 7.50, Hgb 11.6 L, Hct 33.5 L, Plt Count 231 05/25/22 14:29: Sodium 136, Potassium 3.5, BUN 40 H, Creatinine 1.11 H, Glucose 146 H, Total Bilirubin 0.9, AST 20, ALT 19, Alkaline Phosphatase 96 Assessment and Plan - Plan Assessment: Acute on chronic hypoxic respiratory failure secondary to pneumonia Atrial fibrillation Chronic diastolic congestive heart failure History of CAD with previous CABG, pericardiectomy Diabetes mellitus type 2insulin-dependent Hypertension Hyperlipidemia Hypothyroidism History of Crohn's, osteoarthritis Plan: Acute on chronic hypoxic respiratory failure secondary to pneumonia Continue antibiotics with Rocephin/Zithromax. Pulmonology consulted. Patient was previously discharged with home oxygen although this was never delivered by company, she may need home oxygen at discharge. Daily room air saturations ordered. Does not appear significantly overloaded, reports 5 pounds under base weight as her and her family do weigh every other day. Continue patient's oral diuretics. Tested positive for COVID, had COVID infection in March, has not tested again since then. She was given a dose of steroids in the ED, will defer decision to continue steroids to pulmonology. Will obtain VBG to assess for significant hypercapnia. Atrial fibrillation Continue home medications, per chart review patient had left atrial appendage closure in the past patient reports that she does take aspirin/Plavix but not any other oral anticoagulants. She is unsure of if she has had a watchman or similar surgery in the past. Chronic diastolic congestive heart failure Appears compensated at this time, continue oral diuretics, cardiology consulted. History of CAD with previous CABG, pericardiectomy Continue as above Diabetes mellitus type 2insulin-dependent She takes Levemir 50 units twice daily as well as sliding scale Humalog 3 times daily at home. She has very labile glucose levels especially when she gets steroids, continue long-acting insulin at reduced dose as she does blood amount occasionally she said. May need to increase during hospitalization especially if she continues to need steroids. Hypertension Hyperlipidemia Hypothyroidism History of Crohn's, osteoarthritis Continue home medications. DVT PPX: Lovenox Code status: Full Discharge Plan: Home Plan to discharge in: 72 Hours - Advance Directives Does patient have a Living Will: Yes Does patient have a Durable POA for Healthcare: Yes - Code Status/Comfort Care Code Status Assessed: Yes (Full code) Critical Care: No Time Spent Managing Pts Care (In Minutes): 70
[2022-05-25] MEDS ORDERED: ONDANSETRON 4 MG/2 ML VIAL IV PRN (20:03)
[2022-05-25] MEDS ORDERED: ACETAMINOPHEN 500 MG TAB PO PRN (20:03)
[2022-05-25] MEDS: INSULIN -REGULAR HUMAN 50 UNIT/0.5 ML ML SQ SCH (21:00)
[2022-05-25] MEDS ORDERED: POTASSIUM CL SA 10 MEQ TAB PO ONE (21:33)
[2022-05-25] MEDS: INSULIN GLARGINE 100 UNIT/ML SQ SCH (21:49)
[2022-05-25 22:27] LABS: Arterial Blood Carboxyhemoglob 1.7 % (0-1.5); Blood O2 Saturation 90.4 % (92-98.5)
--- NOTE | 2022-05-25 22:27 | P.PN ---
Date of Service: 05/26/22 Subjective: no significant changes overnight +cough, some shortness of breath no worsening of symptoms ROS: 10 point ROS as noted above, otherwise negative Physical Exam: Gen: Alert, NAD, AOx3 HEENT: normal conjunctiva, sclera anicteric CV: paced rhythm, trace pedal edema Pulm: non-labored respirations on 2L NC, diminished at bases bilaterally Abd: soft, non-tender, non-distended Neuro: normal speech, normal affect, moves all extremities vitals reviewed Problem List: Acute on chronic hypoxic respiratory failure secondary to pneumonia Atrial fibrillation, chronic Chronic diastolic congestive heart failure History of CAD with previous CABG, pericardiectomy Diabetes mellitus type 2insulin-dependent Hypertension Hyperlipidemia Hypothyroidism History of Crohn's, osteoarthritis Pulmonology consulted Patient given steroids in ED Monitor VBG for significant hypercapnia Continue antibiotics Continue home medications - reports that she does take aspirin/Plavix but not any other oral anticoagulants unsure of if she has had a watchman or similar surgery Continue oral diuretics Chest X-ray negative Chest CTA reports ground-glass opacification and mild tree-in-bud opacities, possibly infectious or inflammatory process Patients family reports patient is 5 pounds under base weight - family weighs every other day continue long-acting insulin monitor sliding scale insulin May need home oxygen at discharge Positive for COVID in March PCR 05/25 Positive Covid VTE: Lovenox Code: Full Dispo: Home ~48-72 hours
[2022-05-26 03:52] LABS: Absolute Lymphocytes (CBC) 0.3 K/uL (0.7-4.9); Hematocrit 32.1 % (36.0-45.0); Lymphocytes % 5.8 % (15.3-44.8); MCV 102.7 fL (80-100); MPV 8.9 fL (7.6-11.3); RBC Red Blood Cell Count 3.13 M/uL (3.86-4.86)
[2022-05-26 03:54] LABS: C-Reactive Protein 87.5 mg/L (<3.00); Magnesium 1.7 mg/dL (1.6-2.4); Potassium 3.5 mmol/L (3.5-5.1)
[2022-05-26 05:18] LABS: Blood Morphology Comment NOT SEEN (NOT SEEN); Platelet Estimate ADEQ
[2022-05-26] MEDS ORDERED: METOLAZONE 2.5 MG TABLET PO SCH (06:30)
[2022-05-26] MEDS: ENOXAPARIN 40 MG/0.4 ML SQ SCH (08:25)
[2022-05-26] MEDS: CEFTRIAXONE 1,000 MG in NA CHLORIDE 0.9% 50 ML IVPB SCH (08:25)
[2022-05-26] MEDS: METOLAZONE 2.5 MG TABLET PO SCH (08:25)
[2022-05-26] MEDS: FUROSEMIDE 40 MG TABLET PO SCH ×2 (08:25→16:38)
[2022-05-26] MEDS: CLOPIDOGREL 75 MG TABLET PO SCH (08:26)
[2022-05-26] MEDS: METOPROLOL TAR 25 MG TAB PO SCH (08:26)
[2022-05-26] MEDS: INSULIN GLARGINE 100 UNIT/ML SQ SCH ×2 (08:26→21:15)
[2022-05-26] MEDS: INSULIN -REGULAR HUMAN 50 UNIT/0.5 ML ML SQ SCH ×4 (08:26→21:15)
[2022-05-26] MEDS: ASPIRIN EC 81 MG TAB PO SCH (08:26)
[2022-05-26] MEDS: lisinopriL 5 MG TAB PO SCH ×2 (08:26→21:16)
[2022-05-26] MEDS: FOLIC ACID 1 MG TABLET PO SCH (08:26)
[2022-05-26] MEDS: dexAMETHasone 10 MG/ML VIAL IV SCH (08:39)
[2022-05-26] MEDS ORDERED: MAGNESIUM SULFATE 1 gm IVPB 1 GM/100 ML BAG IV ONE (09:00)
[2022-05-26] MEDS ORDERED: POTASSIUM CL SA 10 MEQ TAB PO ONE (09:00)
[2022-05-26] MEDS ORDERED: AZITHROMYCIN IV 500 MG in NA CHLORIDE 0.9% 250 ML IVPB SCH (09:00)
[2022-05-26] MEDS: NIRMATRELVIR/RITONAVIR TABLET PO SCH ×2 (09:31→21:16)
--- NOTE | 2022-05-26 12:04 | P.CNS ---
Date of Consult: 05/26/22 Reason for Consult: Positive for coronavirus Chief Complaint: Pneumonia, hypoxia History of Present Illness: Patient is 76 years of age diabetes A-fib history of heart failure currently was going to rehab was found to be hypoxic and it appeared in the emergency room there is a history of coronavirus infection tested positive complaining of a cough for the past 2 days denies any fever or chills Allergies ciprofloxacin [From Cipro] Allergy (Mild, Verified 05/26/22 06:27) Joint Pain morphine Allergy (Verified 05/26/22 06:27) Itching/Hives/Rash Home Medications: Insulin Detemir [Levemir] 50 units SQ BID 01/10/12 Omeprazole [Prilosec] 20 mg PO DAILY 01/06/13 Furosemide 80 mg PO BID 12/09/20 Insulin Lispro [Humalog*] See Protocol SQ TIDWM 12/09/20 Potassium Chloride 20 meq PO TID 12/09/20 Adalimumab [Humira] 40 mg SQ Q14D 03/25/22 Aspirin [Adult Low Dose Aspirin EC] 81 mg PO DAILY 03/25/22 Atorvastatin Calcium [Lipitor] 40 mg PO BEDTIME 03/25/22 Clopidogrel Bisulfate [Plavix] 75 mg PO DAILY 03/25/22 Folic Acid 1 mg PO DAILY 03/25/22 Lisinopril [Zestril] 5 mg PO BID 03/25/22 Metoprolol Tartrate 25 mg PO DAILY 03/25/22 Multivit-Min/Folic Acid/Vit K1 [Multi For Her 50 Plus Softgel] 1 each PO DAILY 03/25/22 Trazodone HCl 50 mg PO BEDTIME 03/25/22 Vit A/C/E/Zinc/Selenium/Copper [Vision Formula Tablet] 1 each PO DAILY 03/25/22 metOLazone [Zaroxolyn] 2.5 mg PO DIRECTED 03/25/22 - Past Medical/Surgical History Diabetic: Yes -: IDDM2 -: CHROHN -: HTN -: AFIB -: LYMPHEDEMA -: HLD -: Chronic diastolic congestive heart failure -: cardioversion X6 -: Cardiac ablasions X2 -: hysterectomy -: Cholecystectomy -: colon removed (5in. of sm and lg. intestine) -: pacemaker -: mitral valve replacement and cardiac bypass Dec 2021 -: Pericardiectomy Psychosocial/ Personal History: Patient lives at home with her daughter - Family History Mother Medical History: Cancer Father Medical History: Heart disease - Social History Smoking Status: Former smoker Alcohol use: No CD- Drugs: No Caffeine use: No Place of Residence: Home Review of Systems 10-point ROS is otherwise unremarkable General: Weakness Respiratory: Cough, Shortness of Breath Physical Examination Temp Pulse Resp BP Pulse Ox 97.3 F 70 18 135/63 91 05/26/22 07:44 05/26/22 07:44 05/26/22 07:44 05/26/22 07:44 05/26/22 07:44 General: Alert, In no apparent distress, Oriented x3 Neck: Supple Respiratory: Clear to auscultation bilaterally, Diminished Cardiovascular: No edema, Normal pulses, Normal S1 S2 Laboratory Data (last 24 hrs) 05/25/22 14:29: PT 13.6 H, INR 1.24, APTT 28.1 05/25/22 14:29: WBC 7.50, Hgb 11.6 L, Hct 33.5 L, Plt Count 231 05/25/22 14:29: Sodium 136, Potassium 3.5, BUN 40 H, Creatinine 1.11 H, Glucose 146 H, Total Bilirubin 0.9, AST 20, ALT 19, Alkaline Phosphatase 96 - Problems (1) 2019 novel coronavirus-infected pneumonia (NCIP) Current Visit: Yes Status: Acute Plan: Patient is 76 years of age admitted with acute onset of shortness of breath hypoxemia tested positive for coronavirus CT scan shows bilateral groundglass changes just above her coronavirus pneumonia plan to treat her with steroids Paxlovid is still hypoxic resume all home medications no prior history of obstructive airways disease patient is not on any oxygen patient is mildly hypoxic hypercapnic otherwise vital signs stable possible discharge on home O2 in a day or so on steroids and finish off the course of the Paxlovid blood cultures are negative no fever patient is hypoxic room air sat is 73%
--- NOTE | 2022-05-26 12:41 | EKG ---
Test Date: 2022-05-25 Test Time: 14:00:27 Algorithm Design Engineer: ODILIA MEASUREMENT RESULTS: Intervals: Rate: 70 ND: QRSD: 160 QT: 478 QTc: 516 [place]: P: ND: QRS: 211 T: 2 INTERPRETIVE STATEMENTS: Electronic ventricular pacemaker Compared to ECG 03/24/2022 14:23:06 No significant changes Electronically Signed On 05-26-22 12:39:10 CDT by Colt Vail
[2022-05-26] MEDS: TRAZODONE 50 MG TABLET PO SCH (21:14)
[2022-05-26] MEDS: ATORVASTATIN 40 MG TAB PO SCH (21:14)
[2022-05-26] MEDS: BENZONATATE 100 MG CAP PO PRN (21:17)
[2022-05-27 03:29] LABS: Absolute Lymphocytes (CBC) 0.4 K/uL (0.7-4.9); Hematocrit 35.5 % (36.0-45.0); Lymphocytes % 6.6 % (15.3-44.8); MCV 99.4 fL (80-100); RBC Red Blood Cell Count 3.57 M/uL (3.86-4.86)
[2022-05-27 03:58] LABS: Potassium 3.2 mmol/L (3.5-5.1)
[2022-05-27] MEDS ORDERED: POTASSIUM CL SA 10 MEQ TAB PO ONE ×2 (09:00→18:00)
[2022-05-27] MEDS: dexAMETHasone 10 MG/ML VIAL IV SCH (09:05)
[2022-05-27] MEDS: ASPIRIN EC 81 MG TAB PO SCH (09:05)
[2022-05-27] MEDS: INSULIN -REGULAR HUMAN 50 UNIT/0.5 ML ML SQ SCH ×4 (09:05→20:34)
[2022-05-27] MEDS: FOLIC ACID 1 MG TABLET PO SCH (09:06)
[2022-05-27] MEDS: FUROSEMIDE 40 MG TABLET PO SCH ×2 (09:06→16:00)
[2022-05-27] MEDS: METOPROLOL TAR 25 MG TAB PO SCH (09:06)
[2022-05-27] MEDS: NIRMATRELVIR/RITONAVIR TABLET PO SCH ×2 (09:07→20:33)
[2022-05-27] MEDS: lisinopriL 5 MG TAB PO SCH ×2 (09:07→20:32)
[2022-05-27] MEDS: CEFTRIAXONE 1,000 MG in NA CHLORIDE 0.9% 50 ML IVPB SCH (09:07)
[2022-05-27] MEDS: ENOXAPARIN 40 MG/0.4 ML SQ SCH (09:07)
[2022-05-27] MEDS: CLOPIDOGREL 75 MG TABLET PO SCH (09:07)
[2022-05-27] MEDS: INSULIN GLARGINE 100 UNIT/ML SQ SCH ×2 (09:08→20:34)
--- NOTE | 2022-05-27 12:24 | P.PN ---
Subjective Date of Service: 05/27/22 Chief Complaint: Pneumonia, hypoxia No change in patient's condition still short of breath feeling weak Review of Systems General: Weakness Respiratory: Shortness of Breath Physical Examination - Vital Signs Temperature: 97.3 F Blood Pressure: 130/78 Pulse: 72 Respirations: 18 Pulse Ox (%): 93 - Physical Exam General: Alert, Oriented x3, Acute distress Respiratory: Clear to auscultation bilaterally Cardiovascular: No edema, Regular rate/rhythm, Normal S1 S2 Assessment And Plan - Current Problems (Diagnosis) (1) 2019 novel coronavirus-infected pneumonia (NCIP) Current Visit: Yes Status: Acute Plan: No change in patient's condition still feels weak White count is normal vital signs stable chest x-ray shows some interstitial changes blood sugar elevated reduce dose of dexamethasone continue with Paxlovid
--- NOTE | 2022-05-27 12:44 | RAD REPORT ---
EXAM DESCRIPTION: RAD - Chest Single View - 05/27/2022 11:37 am CLINICAL HISTORY: COVID Chest pain. COMPARISON: Chest Single View dated 05/25/2022; Chest Single View dated 03/27/2022; Chest Single View dated 03/24/2022; Chest Single View dated 11/05/2021 FINDINGS: Portable technique limits examination quality. Mild interstitial prominence bilaterally is stable probably representing mild pulmonary edema. The he art is mildly enlarged with pacer device present. Sternotomy wires present. IMPRESSION: Mild CHF.
[2022-05-27] MEDS: TRAZODONE 50 MG TABLET PO SCH (20:32)
[2022-05-27] MEDS: ATORVASTATIN 40 MG TAB PO SCH (20:33)
[2022-05-27] MEDS: BENZONATATE 100 MG CAP PO PRN (20:42)
--- NOTE | 2022-05-27 22:07 | PN ---
Date of Progress Note: 05/27/2022 Subjective: The patient was seen this morning for followup. I have reviewed current hospital record s. The patient came into the hospital with shortness of breath, low oxygen level and chest x-ray had shown some pneumonia. COVID-19 test was positive and the patient was admitted to the hospital with this problem. She is requiring oxygen replacement therapy. After her last hospital admission, she w as sent home with home oxygen, which she used for a while and then she requested home oxygen to be di scontinued and she contacted [facility] to come and rock picker her oxygen. Now during this admission, we will have to start that process of making home oxygen therapy for her because of her re spiratory failure with hypoxia problem. Objective: Vital Signs: Reviewed. This morning temperature 97, pulse 60, respiratory rate 18, bloo d pressure 145/60, and oxygen saturation 95% on 2 L nasal cannula oxygen. HEENT: Unremarkable. Lungs: Clear to auscultation. Heart: Sounds normal. Abdomen: Soft. Bowel sounds normal. No guarding, rigidity, tenderness, or distention. Extremities: No leg edema. Laboratory Data: White count 6.7, hemoglobin 11.9, and platelets 202. Sodium 136, potassium 3.2, ch loride 94, bicarb 37, BUN 49, creatinine 1.25, glucose 373, and magnesium 2. Impression: 1.COVID-19 infection. 2.Pneumonia. 3.Hypertension. 4.Diabetes mellitus. 5.Hypokalemia. 6.Anemia. Plan: The patient's weight today is 239 pounds. Upon admission, weight was 241 pounds. Overall, e is stable. We will continue antiviral therapy for COVID. Continue antibiotic for pneumonia. We w ill continue to follow with railroad operating engineer, Dr. Bran. Continue current diabetes management. We w ill continue ceftriaxone that currently she is on and she is also getting dexamethasone. I will see her tomorrow for followup and we will discharge to go home in next day or 2 days. JESSICA/MODL Voice ID: [id number] Report ID: [id number]
[2022-05-28 03:36] LABS: Absolute Lymphocytes (CBC) 0.4 K/uL (0.7-4.9); Hematocrit 34.7 % (36.0-45.0); MCV 100.4 fL (80-100); MPV 8.8 fL (7.6-11.3); RBC Red Blood Cell Count 3.46 M/uL (3.86-4.86)
[2022-05-28 03:55] LABS: Magnesium 1.8 mg/dL (1.6-2.4); Potassium 3.6 mmol/L (3.5-5.1)
[2022-05-28] MEDS ORDERED: MAGNESIUM SULFATE 1 gm IVPB 1 GM/100 ML BAG IV ONE (06:00)
--- NOTE | 2022-05-28 07:37 | RAD REPORT ---
EXAM DESCRIPTION: [place] Single View05/28/2022 6:36 am CLINICAL HISTORY: Chest pain COMPARISON: May 27, 2022 FINDINGS: No change in mild to moderate bilateral pulmonary opacities. Heart remains enlarged. Postsurgical changes involve the chest. Pacemaker leads in place IMPRESSION: No change in mild to moderate bilateral pulmonary opacities which may represent pneumoni a or pulmonary edema
[2022-05-28 07:58] VITALS: BMI 40.8
[2022-05-28] MEDS: ASPIRIN EC 81 MG TAB PO SCH (08:39)
[2022-05-28] MEDS: METOLAZONE 2.5 MG TABLET PO SCH (08:39)
[2022-05-28] MEDS: INSULIN -REGULAR HUMAN 50 UNIT/0.5 ML ML SQ SCH ×4 (08:39→21:39)
[2022-05-28] MEDS: CLOPIDOGREL 75 MG TABLET PO SCH (08:40)
[2022-05-28] MEDS: METOPROLOL TAR 25 MG TAB PO SCH (08:40)
[2022-05-28] MEDS: ENOXAPARIN 40 MG/0.4 ML SQ SCH (08:40)
[2022-05-28] MEDS: FUROSEMIDE 40 MG TABLET PO SCH ×2 (08:40→16:49)
[2022-05-28] MEDS: FOLIC ACID 1 MG TABLET PO SCH (08:40)
[2022-05-28] MEDS: lisinopriL 5 MG TAB PO SCH ×2 (08:41→22:27)
[2022-05-28] MEDS: INSULIN GLARGINE 100 UNIT/ML SQ SCH ×2 (08:41→21:26)
[2022-05-28] MEDS: CEFTRIAXONE 1,000 MG in NA CHLORIDE 0.9% 50 ML IVPB SCH (08:41)
[2022-05-28] MEDS ORDERED: POTASSIUM CL SA 10 MEQ TAB PO ONE (09:00)
[2022-05-28] MEDS ORDERED: dexAMETHasone 4 MG/ML VIAL IV SCH (09:00)
[2022-05-28] MEDS: NIRMATRELVIR/RITONAVIR TABLET PO SCH ×2 (10:17→21:00)
[2022-05-28] MEDS ORDERED: INSULIN -REGULAR HUMAN 50 UNIT/0.5 ML ML IV STA (21:21)
--- NOTE | 2022-05-28 21:42 | PN ---
Date of Progress Note: 05/28/2022 Subjective: The patient was seen this morning for followup. No new complaints or problems reported by the patient. Lying in bed, not in distress. Objective: Vital Signs: Reviewed. HEENT: Unremarkable. Lungs: Clear to auscultation. Heart: Sounds normal. Abdomen: Soft. Bowel sounds normal. No guarding, rigidity, tenderness, or distention. Extremities: No leg edema. Laboratory Data: White count 7.1, hemoglobin 12.3, and platelets 248. Sodium 141, potassium 3.6, ch loride 97, bicarb 40, BUN 49, creatinine 1.31, glucose 340, and magnesium 1.8. Impression: 1.Pneumonia. 2.COVID-19 infection. 3.Hypertension. 4.Type 2 diabetes mellitus. 5.Chronic diastolic heart failure. Plan: We will go ahead and continue current antiviral therapy, which is Paxlovid. Continue current antibiotic, which is ceftriaxone. The patient continues to receive IV dexamethasone. We will contin ue to follow with Dr. Bran and Social Service was consulted to help make arrangements for home ox ygen and possible discharge to go home probably tomorrow. Details and plan of treatment discussed with the patient. JESSICA/MODL Voice ID: [id number] Report ID: [id number]
[2022-05-28] MEDS: TRAZODONE 50 MG TABLET PO SCH (22:26)
[2022-05-28] MEDS: ATORVASTATIN 40 MG TAB PO SCH (22:27)
[2022-05-29 07:08] LABS: Potassium 3.5 mEq/L (3.5-5.1)
[2022-05-29] MEDS ORDERED: POTASSIUM CL SA 10 MEQ TAB PO ONE (07:36)
[2022-05-29] MEDS: NIRMATRELVIR/RITONAVIR TABLET PO SCH (08:47)
[2022-05-29] MEDS: lisinopriL 5 MG TAB PO SCH (08:48)
[2022-05-29] MEDS: FUROSEMIDE 40 MG TABLET PO SCH ×2 (08:49→16:42)
[2022-05-29] MEDS: ASPIRIN EC 81 MG TAB PO SCH (08:49)
[2022-05-29] MEDS: METOPROLOL TAR 25 MG TAB PO SCH (08:50)
[2022-05-29] MEDS: CLOPIDOGREL 75 MG TABLET PO SCH (08:50)
[2022-05-29] MEDS: FOLIC ACID 1 MG TABLET PO SCH (08:50)
[2022-05-29] MEDS: INSULIN -REGULAR HUMAN 50 UNIT/0.5 ML ML SQ SCH ×3 (08:51→16:43)
[2022-05-29] MEDS: ENOXAPARIN 40 MG/0.4 ML SQ SCH (08:51)
[2022-05-29] MEDS: INSULIN GLARGINE 100 UNIT/ML SQ SCH (08:51)
[2022-05-29] MEDS: CEFTRIAXONE 1,000 MG in NA CHLORIDE 0.9% 50 ML IVPB SCH (08:52)
[2022-05-29] MEDS ORDERED: AMLODIPINE 5 MG TAB PO ONE (10:09)
[2022-05-29 12:22] VITALS: O2SAT 92
[2022-05-29 15:51] VITALS: BP 178/78; TEMP 97
--- NOTE | 2022-05-29 21:25 | DS ---
Date of Discharge: 05/29/2022 Subjective: The patient was seen this morning for followup. No new complaints or problems reported by her. Physical Examination: Vital Signs: Reviewed. Her blood pressure remains elevated. This morning blood pressure was 193/84 , pulse 70, last temperature 97.2, and oxygen saturation 92% on 2 L nasal cannula oxygen. HEENT: Unremarkable. Lungs: Clear to auscultation. Heart: Sounds normal. Abdomen: Soft. Bowel sounds normal. No guarding, rigidity, tenderness, or distention. Extremities: No leg edema. Discharge Medications And Instructions: 1.Continue all prior home medications. 2.Take following new medication and prescription will be sent to your pharmacy from my office. a.Ceftin 250 mg take 1 tablet by mouth 2 times a day for 1 week, take it with food. b.Paxlovid 2 tablets by mouth 2 times a day for 3 doses and the patient will take Paxlovid supply fo r this 3 doses from the hospital upon discharge. c.Amlodipine 5 mg take 1 tablet by mouth 2 times a day if systolic blood pressure is higher than 140 and she has this supply at home. 3.Use oxygen 2 L/minute via nasal cannula. 4.Follow up at office in 2 weeks. Laboratory Data: Upon admission on 05/25/2022: White count 7.5, hemoglobin 11.6, and platelets 231. Last CBC from yesterday white count 7.1, hemoglobin 12.3, and platelets 248. Last chemistry today sodium 138, potassium 3.5, chloride 93, bicarb 41, BUN 48, creatinine 1.03, and glucose 220. Upon ad mission: Sodium 136, potassium 3.5, chloride 97, bicarb 35, BUN 40, creatinine 4.11, and glucose 146 . Liver function tests unremarkable. CRP 87.5. Procalcitonin less than 0.05. CAT scan of the ches t per PE protocol with no evidence of pulmonary embolism, but it showed presence of ground-glass opac ification and mild tree-in-bud opacities. Last chest x-ray from yesterday shows no change and mild-t o-moderate bilateral pulmonary opacities. Hospital Course: A 76-year-old female patient admitted to the hospital with complaints of shortness of breath and low oxygen level. Please see dictated H and P for more information. After the patient was admitted to the hospital, she was also diagnosed as having COVID-19 infection with further testi ng done in the emergency room. The patient was treated for COVID-[address] Kee luong from Pulmonary was consulted. The patient did qualify for home oxygen with her low oxygen sat uration, so Social Service was consulted and arrangements were completed for home oxygen. The patien t received diuretic therapy and her antihypertensive medication. Her blood pressure was elevated and as of today, I have started her on amlodipine. She does have amlodipine at home, but she was not us ing it. Overall, her condition has improved. She feels better and she has received Paxlovid, she on ly has 3 more doses to be taken and she will receive those 3 doses that she needs to continue at home upon discharge from the hospital to take it home with and she will use those doses to complete her c ourse. She was getting IV dexamethasone and that unfortunately raised her blood sugar. Yesterday ev ening it was 600 and at that time, we discontinued dexamethasone and on top of her long-acting insuli n and sliding scale, I did give her 5 units of regular insulin IV. This morning, her sugar was aroun d 220. Final Diagnoses: 1.COVID-19 infection. 2.Pneumonia. 3.Chronic diastolic heart failure. 4.Chronic respiratory failure with hypoxia, with acute exacerbation. 5.Hypertension. 6.Type 2 diabetes mellitus, uncontrolled. 7.Chronic atrial fibrillation. 8.Hyperlipidemia. 9.Crohn disease. 10.Diverticulosis. 11.Osteoarthritis, multiple sites. 12.Hypomagnesemia. JESSICA/MODL Voice ID: [id number] Report ID: [id number]
== END 2022-05-29 17:45 | disposition home or self-care (01) | DRG 177 ==
LOC: ER 13:52 → ERHOLD 18:31 → 4TH 19:23
PROVIDERS: ADMIT Hospitalist; ATTEND Internal Medicine
PROC: XW0DXF5 Introduction of Other New Technology Therapeutic Substance into Mouth and Pharynx, External Approach, New Technology Group 5 (ICD-10-PCS; principal; 2022-05-26)
DX: U07.1 COVID-19 (principal); J12.82 Pneumonia due to coronavirus disease 2019; J96.21 Acute and chronic respiratory failure with hypoxia; I50.32 Chronic diastolic (congestive) heart failure; I48.20 Chronic atrial fibrillation, unspecified; K50.90 Crohn's disease, unspecified, without complications; I11.0 Hypertensive heart disease with heart failure; E11.9 Type 2 diabetes mellitus without complications; E87.6 Hypokalemia; E03.9 Hypothyroidism, unspecified; D64.9 Anemia, unspecified; E78.5 Hyperlipidemia, unspecified; E83.42 Hypomagnesemia; M19.90 Unspecified osteoarthritis, unspecified site; I25.10 Atherosclerotic heart disease of native coronary artery without angina pectoris; K57.90 Diverticulosis of intestine, part unspecified, without perforation or abscess without bleeding; Z79.4 Long term (current) use of insulin; Z88.1 Allergy status to other antibiotic agents; Z88.5 Allergy status to narcotic agent; Z95.0 Presence of cardiac pacemaker; Z95.2 Presence of prosthetic heart valve; Z95.1 Presence of aortocoronary bypass graft; Z79.02 Long term (current) use of antithrombotics/antiplatelets; Z79.82 Long term (current) use of aspirin; Z86.16 Personal history of COVID-19; Z90.49 Acquired absence of other specified parts of digestive tract; Z90.710 Acquired absence of both cervix and uterus; Z87.891 Personal history of nicotine dependence; Z79.899 Other long term (current) drug therapy
CPT/HCPCS: 0240U; 36415; 71045; 71275; 80048; 80076; 81003; 82805; 82947; 83605; 83735; 83880; 84132; 84145; 84484; 85025; 85610; 85730; 86140; 87040; 93005; 94010; 96374; 96375; 99285; J1100; J1650; J1815; J2930; J3475; J7050; J7614; Q9967

== ENCOUNTER 2022-08-18 19:46 | Inpatient (IN) | payer OTHER ==
--- OUTSIDE RECORDS SUMMARY | 2022-08-18 20:07 | XMS REPORT | Continuity of Care Document ---
:1945 Author Organization [facility] t Address [address] [facility] [address] [place] [address] Care Team Providers Name Role Phone Abdiaziz Fuchs Attending Clinician Unavailable Jesus Landry Attending Clinician Unavailable Jeffry More Attending Clinician Unavailable Jesus Landry Admitting Clinician Unavailable Jeffry More Admitting Clinician Unavailable Abdiaziz Fuchs Admitting Clinician Unavailable Payers Payer Name Policy Type Policy Number Effective Date Expiration Date S ource Problems This patient has no known problems. Allergies, Adverse Reactions, Alerts Allergy Allergy Status Severity Reaction(s) Onset Inactive Treating Comm ents Source Name Type Date Date Clinician morphine DA Active SV RASH, 2021-03 [facility]-26 [place] 00:00: d 00 [facility] ciproflo DA Active SV JOINT PAIN 2021-03 [facility] xacin 0-26 [place] 00:00: d 00 [facility] morphine DA Active SV RASH, [facility] 9-30 [place] 00:00: d 00 [facility] ciproflo DA Active SV JOINT PAIN 2021- [facility] xacin 9-30 [facility] 00:00: d 00 [facility] Medications This patient has no known medications. Procedures Procedure Date / Time Performed Performing Clinician Terese schmitt [id number] 2022-01-07 00:00:00 GIBJE.01 [facility] [id number] 2022-01-07 00:00:00 GIBJE.01 [facility] [id number] 2022-01-07 00:00:00 GIBJE.01 [facility] [id number] 2022-01-07 00:00:00 GIBJE.01 [facility] [id number] 2021-12-26 00:00:00 ALKNE [facility] [id number] 2021-12-26 00:00:00 ALKNE [facility] [id number] 2021-12-24 00:00:00 HYDSH [facility] [id number] 2021-12-24 00:00:00 HYDSH [facility] [id number] 2021-12-24 00:00:00 HYDSH [facility] [id number] 2021-12-19 00:00:00 MOUAN [facility] [id number] 2021-12-19 00:00:00 CHAAB.01 [facility] [id number] 2021-12-19 00:00:00 CHAAB.01 [facility] [id number] 2021-12-19 00:00:00 CHAAB.01 [facility] [id number] 2021-12-19 00:00:00 CHAAB.01 [facility] [id number] 2021-12-19 00:00:00 CHAAB.01 [facility] [id number] 2021-12-19 00:00:00 CHAAB.01 [facility] [id number] 2021-12-19 00:00:00 ALKNE [facility] [id number] 2021-12-19 00:00:00 ALKNE [facility] [id number] 2021-12-19 00:00:00 ALKNE [facility] [id number] 2021-12-19 00:00:00 ALKNE [facility] [id number] 2021-12-19 00:00:00 ALKNE [facility] [id number] 2021-12-19 00:00:00 ALKNE [facility] [id number] 2021-12-19 00:00:00 ALKNE [facility] [id number] 2021-12-19 00:00:00 FARHAN LEWIS [facility] [id number] 2021-12-17 00:00:00 CLARKE LEWIS [facility] [id number] 2021-12-17 00:00:[address] [facility] Encounters Start End Encounter Admission Attending Care Care Encounter Source Date/Time Date/Time Type Type Clinicians Facility Department ID 2021-09-04 Outpatient Fuchs, STLMLC STLMLC [id number] Common 14:26:02 Abdiaziz [facility] 2021-06-25 Outpatient STLMLC STLMLC [id number] Common 10:03:03 [facility] 2021-06-18 Outpatient STLMLC STLMLC [id number] Common 08:37:02 58000 [facility] 2021-06-13 Outpatient STLMLC STLMLC [id number] Common 10:29:05 [facility] 2022-01-07 2022-01-21 Inpatient SHUKRI Landry HCACL REHA [id number] [facility] 19:57:00 23:59:00 Jesus 63 [facility] 2021-12-17 2022-01-[address] INTE [id number] [facility] 12:00:00 19:20:00 Jeffry 32 [facility] 2021-12-12 2021-12-12 Outpatient JOSHUA StCL ZZZB [id number] [facility] 08:00:00 09:00:00 Jeffry 24 [facility] Results Test Description Test Time Test Comments Results Result Comments Source GLUCOSE BEDSIDE 2022-01-22 02:18:00 Test Item Value Reference Range Interpretation Comme nts GLUCOSE BEDSIDE (test code = 150 MG/DL 70-110 H Performed by certified 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[facility]) [facility] CBC W/AUTO [id number] 08:16:00 Test Item Value Reference Range Interpretation [...] (test code NO = MDIFF) BASIC METABOLIC [id number] 07:50:00 Test Item Value Reference Range Interpretation [...] the recommended for oscar for GFRby the [facility] on for Adults.The GFR will not calculate if th e sex is unknown or if thepatient's ag e is <18 years. CREATININE (test 0.9 mg/dL 0.6-1.3 N code = CREAT) CALCIUM (test code = 9.6 mg/dL 8.0-10.5 N CA) [id number] 07:50:00 Test Item Value Reference Range Interpretation Comments MAGNESIUM (test code = MAG) 2.05 mg/dL 1.80-2.40 N GLUCOSE [id number] 06:41:00 Test Item Value Reference Range Interpretation Comments GLUCOSE BEDSIDE (test 99 MG/DL 70-110 N Perfor med by certified code = GLUBED) 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[facility] GLUCOSE [id number] 20:16:00 Test Item Value Reference Range Interpretation Comments GLUCOSE BEDSIDE (test 196 MG/DL 70-110 H Perfor med by certified code = GLUBED) 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[facility] GLUCOSE [id number] 16:27:00 Test Item Value Reference Range Interpretation Comments GLUCOSE BEDSIDE (test 207 MG/DL 70-110 H Perfor med by certified code = GLUBED) 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[facility] GLUCOSE [id number] 11:35:00 Test Item Value Reference Range Interpretation Comments GLUCOSE BEDSIDE (test 161 MG/DL 70-110 H Perfor med by certified code = GLUBED) 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[facility] GLUCOSE [id number] 06:01:00 Test Item Value Reference Range Interpretation Comments GLUCOSE BEDSIDE (test 112 MG/DL 70-110 H Perfor med by certified code = GLUBED) 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[facility] GLUCOSE [id number] 19:38:00 Test Item Value Reference Range Interpretation Comments GLUCOSE BEDSIDE (test 197 MG/DL 70-110 H Perfor med by certified code = GLUBED) 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[facility] GLUCOSE [id number] 16:10:00 Test Item Value Reference Range Interpretation Comments GLUCOSE BEDSIDE (test 166 MG/DL 70-110 H Perfor med by certified code = GLUBED) 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[facility] GLUCOSE [id number] 11:37:00 Test Item Value Reference Range Interpretation Comments GLUCOSE BEDSIDE (test 136 MG/DL 70-110 H Perfor med by certified code = GLUBED) 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[facility] CBC W/AUTO [id number] 08:13:00 Test Item Value Reference Range Interpretation [...] (test code NO = MDIFF) BASIC METABOLIC [id number] 07:37:00 Test Item Value Reference Range Interpretation [...] the recommended for oscar for GFRby the [facility] on for Adults.The GFR will not calculate if th e sex is unknown or if thepatient's ag e is <18 years. CREATININE (test 0.9 mg/dL 0.6-1.3 N code = CREAT) CALCIUM (test code = 9.3 mg/dL 8.0-10.5 N CA) [id number] 07:37:00 Test Item Value Reference Range Interpretation Comments MAGNESIUM (test code = MAG) 1.90 mg/dL 1.80-2.40 N B-TYPE NATRIURETIC [id number] 07:14:00 Test Item Value Reference Range Interpretation Comments B-TYPE NATRIURETIC PEPTIDE (test 241.0 PG/ML 0-100 H code = BNP) GLUCOSE [id number] 06:39:00 Test Item Value Reference Range Interpretation Comments GLUCOSE BEDSIDE (test 93 MG/DL 70-110 N Perfor med by certified code = GLUBED) 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[facility] GLUCOSE [id number] 01:49:00 Test Item Value Reference Range Interpretation Comments GLUCOSE BEDSIDE (test 77 MG/DL 70-110 N Perfor med by certified code = GLUBED) 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[facility] GLUCOSE [id number] 01:20:00 Test Item Value Reference Range Interpretation Comments GLUCOSE BEDSIDE (test 56 MG/DL 70-110 L Perfor med by certified code = GLUBED) 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[facility] GLUCOSE [id number] 20:14:00 Test Item Value Reference Range Interpretation Comments GLUCOSE BEDSIDE (test 192 MG/DL 70-110 H Perfor med by certified code = GLUBED) 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[facility] GLUCOSE [id number] 16:26:00 Test Item Value Reference Range Interpretation Comments GLUCOSE BEDSIDE (test 162 MG/DL 70-110 H Perfor med by certified code = GLUBED) 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[facility] GLUCOSE [id number] 12:27:00 Test Item Value Reference Range Interpretation Comments GLUCOSE BEDSIDE (test 128 MG/DL 70-110 H Perfor med by certified code = GLUBED) 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[facility] URINALYSIS [id number] 11:00:00 Test Item Value Reference Range Interpretation [...] MUCU) TRACE /LPF NONE SEEN BASIC METABOLIC [id number] 06:05:00 Test Item Value Reference Range Interpretation [...] the recommended for oscar for GFRby the [facility] on for Adults.The GFR will not calculate if th e sex is unknown or if thepatient's ag e is <18 years. CREATININE (test 0.8 mg/dL 0.6-1.3 N code = CREAT) CALCIUM (test code = 9.3 mg/dL 8.0-10.5 N CA) CALCIUM [id number] 06:05:00 Test Item Value Reference Range Interpretation Comments CALCIUM IONIZED (test code = TYREE) 1.15 MMOL/L 1.09-1.30 N GLUCOSE [id number] 05:24:00 Test Item Value Reference Range Interpretation Comments GLUCOSE BEDSIDE (test 78 MG/DL 70-110 N Perfor med by certified code = GLUBED) 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[facility] GLUCOSE [id number] 20:24:00 Test Item Value Reference Range Interpretation Comments GLUCOSE BEDSIDE (test 142 MG/DL 70-110 H Perfor med by certified code = GLUBED) 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[facility] GLUCOSE [id number] 17:17:00 Test Item Value Reference Range Interpretation Comments GLUCOSE BEDSIDE (test 157 MG/DL 70-110 H Perfor med by certified code = GLUBED) 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[facility] GLUCOSE [id number] 12:04:00 Test Item Value Reference Range Interpretation Comments GLUCOSE BEDSIDE (test 132 MG/DL 70-110 H Perfor med by certified code = GLUBED) 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[facility] CBC W/AUTO [id number] 10:36:00 Test Item Value Reference Range Interpretation [...] REQUIRED (test code NO = MDIFF) GLUCOSE [id number] 06:21:00 Test Item Value Reference Range Interpretation Comments GLUCOSE BEDSIDE (test 119 MG/DL 70-110 H Perfor med by certified code = GLUBED) 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[facility] - XR CHEST 2 [id number] 00:00:00 [facility] 1945 Sex: F FAX:Suki Fuchs MD [place]: St: ADM FAX: Abdiaziz Christiansen MD [phone] FAX: Jesus Flores [phone] Name: SAÚL GILES [facility] : 1945 Age/S: 76/F [address] [place] [address] Bl Unit #: [id number] Loc: [address] [address] Phys: Suki Fuchs MD Acct: [id number] Dis Date: Status: ADM IN PHONE #: [phone] Exam Date: 01/17/2022 1445 FAX #: [phone] Reason: FOR WORSENING BREATHING/CONGESTION EXAMS: CPT CODE: [id number] XR CHEST 2 V 59152 PROCEDURE INFORMATION: Exam: XR Chest Exam date [...] Landry Technologist: RT Cain(Marla) Trnscrd Date/Time/By: 01/17/2022 (1503) : By: [email or web address] [facility] Print D/T: S: 01/17/2022 (3015) PAGE 1 Signed ReportGLUCOSE [id number] 21:08:00 Test Item Value Reference Range Interpretation Comments GLUCOSE BEDSIDE (test 200 MG/DL 70-110 H Perfor med by certified code = GLUBED) 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[facility] GLUCOSE [id number] 16:14:00 Test Item Value Reference Range Interpretation Comments GLUCOSE BEDSIDE (test 127 MG/DL 70-110 H Perfor med by certified code = GLUBED) 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[facility] GLUCOSE [id number] 11:59:00 Test Item Value Reference Range Interpretation Comments GLUCOSE BEDSIDE (test 117 MG/DL 70-110 H Perfor med by certified code = GLUBED) 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[facility] B-TYPE NATRIURETIC [id number] 10:47:00 Test Item Value Reference Range Interpretation Comments B-TYPE NATRIURETIC PEPTIDE (test 258.0 PG/ML 0-100 H code = BNP) BASIC METABOLIC [id number] 07:58:00 Test Item Value Reference Range Interpretation [...] = 9.5 mg/dL 8.0-10.5 N CA) CALCIUM [id number] 07:58:00 Test Item Value Reference Range Interpretation Comments CALCIUM IONIZED (test code = TYREE) 1.16 MMOL/L 1.09-1.30 N GLUCOSE [id number] 06:17:00 Test Item Value Reference Range Interpretation Comments GLUCOSE BEDSIDE (test 98 MG/DL 70-110 N Perfor med by certified code = GLUBED) 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[facility] GLUCOSE [id number] 21:19:00 Test Item Value Reference Range Interpretation Comments GLUCOSE BEDSIDE (test 132 MG/DL 70-110 H Perfor med by certified code = GLUBED) 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[facility] GLUCOSE [id number] 15:45:00 Test Item Value Reference Range Interpretation Comments GLUCOSE BEDSIDE (test 159 MG/DL 70-110 H Perfor med by certified code = GLUBED) 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[facility] GLUCOSE [id number] 11:16:00 Test Item Value Reference Range Interpretation Comments GLUCOSE BEDSIDE (test 154 MG/DL 70-110 H Perfor med by certified code = GLUBED) 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[facility] GLUCOSE [id number] 06:02:00 Test Item Value Reference Range Interpretation Comments GLUCOSE BEDSIDE (test 113 MG/DL 70-110 H Perfor med by certified code = GLUBED) 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[facility] GLUCOSE [id number] 05:18:00 Test Item Value Reference Range Interpretation Comments GLUCOSE BEDSIDE (test 57 MG/DL 70-110 L Perfor med by certified code = GLUBED) 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[facility] GLUCOSE [id number] 19:38:00 Test Item Value Reference Range Interpretation Comments GLUCOSE BEDSIDE (test 186 MG/DL 70-110 H Perfor med by certified code = GLUBED) 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[facility] GLUCOSE [id number] 16:05:00 Test Item Value Reference Range Interpretation Comments GLUCOSE BEDSIDE (test 183 MG/DL 70-110 H Perfor med by certified code = GLUBED) 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[facility] GLUCOSE [id number] 11:25:00 Test Item Value Reference Range Interpretation Comments GLUCOSE BEDSIDE (test 114 MG/DL 70-110 H Perfor med by certified code = GLUBED) 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[facility] BASIC METABOLIC [id number] 08:05:00 Test Item Value Reference Range Interpretation [...] code = 9.2 mg/dL 8.0-10.5 N CA) [id number] 08:05:00 Test Item Value Reference Range Interpretation Comments MAGNESIUM (test code = MAG) 1.83 mg/dL 1.80-2.40 N GLUCOSE [id number] 05:00:00 Test Item Value Reference Range Interpretation Comments GLUCOSE BEDSIDE (test 83 MG/DL 70-110 [facility] med by certified code = GLUBED) 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[facility] - XR CHEST 1 [id number] 00:00:00 [facility] 1945 Sex: F FAX:Abdiaziz Christiansen MD [phone] [place]: St: ADM FAX: Jesus Flores [phone] FAX: Isabella Clemens [phone] Name: SAÚL GILES [facility] : 1945 Age/S: 76/F [address] [place] [address] Unit #: [id number] Loc: [address] [place] [address] Phys: Isabella lCemens AGACNP Acct: [id number] Dis Date: Status: ADM IN PHONE #: [phone] Exam Date: 01/14/2022905 FAX #: [phone] Reason: SOB, CHF EXAMS: CPT CODE: [id number] XR CHEST 1 V 66481 PROCEDURE INFORMATION: Exam: XR Chest Exam date [...] Abdiaziz Fuchs MD; Jesus Landry; Isabella OKEEFE [facility] Technologist: RT Jeison(Marla) Trnscrd Date/Time/By: 01/14/2022 (1040) : By: ShanonO Orig Print D/T: S: 01/14/2022 (1041) PAGE 1 Signed ReportGLUCOSE [id number] 19:47:00 Test Item Value Reference Range Interpretation Comments GLUCOSE BEDSIDE (test 193 MG/DL 70-110 H Perfor med by certified code = GLUBED) 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[facility] GLUCOSE [id number] 16:47:00 Test Item Value Reference Range Interpretation Comments GLUCOSE BEDSIDE (test 146 MG/DL 70-110 H Perfor med by certified code = GLUBED) 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[facility] GLUCOSE [id number] 11:18:00 Test Item Value Reference Range Interpretation Comments GLUCOSE BEDSIDE (test 164 MG/DL 70-110 H Perfor med by certified code = GLUBED) 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[facility] GLUCOSE [id number] 05:19:00 Test Item Value Reference Range Interpretation Comments GLUCOSE BEDSIDE (test 143 MG/DL 70-110 H Perfor med by certified code = GLUBED) 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[facility] GLUCOSE [id number] 20:33:00 Test Item Value Reference Range Interpretation Comments GLUCOSE BEDSIDE (test 159 MG/DL 70-110 H Perfor med by certified code = GLUBED) 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[facility] GLUCOSE [id number] 16:47:00 Test Item Value Reference Range Interpretation Comments GLUCOSE BEDSIDE (test 233 MG/DL 70-110 H Perfor med by certified code = GLUBED) 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[facility] GLUCOSE [id number] 11:35:00 Test Item Value Reference Range Interpretation Comments GLUCOSE BEDSIDE (test 164 MG/DL 70-110 H Perfor med by certified code = GLUBED) 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[facility] CBC W/AUTO [id number] 10:51:00 Test Item Value Reference Range Interpretation [...] REQUIRED (test code NO = MDIFF) RBC [id number] 10:51:00 Test Item Value Reference Range Interpretation Comments ANISOCYTOSIS (test code = ANISO) 2+ POIKILOCYTOSIS (test code = POIK) 1+ MACROCYTOSIS (test code = MACR) 1+ SCHISTOCYTES (test code = FABBY) 1+ B-TYPE NATRIURETIC [id number] 09:36:00 Test Item Value Reference Range Interpretation Comments B-TYPE NATRIURETIC PEPTIDE (test 180.0 PG/ML 0-100 H code = BNP) BASIC METABOLIC [id number] 07:41:00 Test Item Value Reference Range Interpretation [...] code = 9.0 mg/dL 8.0-10.5 N CA) [id number] 07:41:00 Test Item Value Reference Range Interpretation Comments ALBUMIN (test code = ALB) 3.60 g/dL 3.4-5.0 N [id number] 07:41:00 Test Item Value Reference Range Interpretation Comments MAGNESIUM (test code = MAG) 1.77 mg/dL 1.80-2.40 L [id number] 07:41:00 Test Item Value Reference Range Interpretation Comments PREALBUMIN (test code = PREALB) 13.8 mg/dL 16.0-40.0 L GLUCOSE [id number] 06:00:00 Test Item Value Reference Range Interpretation Comments GLUCOSE BEDSIDE (test 95 MG/DL 70-110 N Perfor med by certified code = GLUBED) 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[facility] GLUCOSE [id number] 06:00:00 Test Item Value Reference Range Interpretation Comments GLUCOSE BEDSIDE (test 100 MG/DL 70-110 N Perfor med by certified code = GLUBED) 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[facility] GLUCOSE [id number] 19:49:00 Test Item Value Reference Range Interpretation Comments GLUCOSE BEDSIDE (test 267 MG/DL 70-110 H Perfor med by certified code = GLUBED) 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[facility] GLUCOSE [id number] 17:10:00 Test Item Value Reference Range Interpretation Comments GLUCOSE BEDSIDE (test 286 MG/DL 70-110 H Perfor med by certified code = GLUBED) 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[facility] GLUCOSE [id number] 11:42:00 Test Item Value Reference Range Interpretation Comments GLUCOSE BEDSIDE (test 140 MG/DL 70-110 H Perfor med by certified code = GLUBED) 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[facility] FLUID [id number] 11:03:00 Test Item Value Reference Range Interpretation Comments FLUID CO2 (test code = CO2BF) 37 21-33 H [id number] 11:03:00 Test Item Value Reference Range Interpretation Comments FLUID CO2 (test code = CO2BF) 37 21-33 H [id number] METABOLIC [id number] 07:03:00 Test Item Value Reference Range Interpretation [...] code = 9.1 mg/dL 8.0-10.5 N CA) [id number] 07:03:00 Test Item Value Reference Range Interpretation Comments MAGNESIUM (test code = MAG) 1.80 mg/dL 1.80-2.40 N GLUCOSE [id number] 06:35:00 Test Item Value Reference Range Interpretation Comments GLUCOSE BEDSIDE (test 71 MG/DL 70-110 N Perfor med by certified code = GLUBED) 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[facility] GLUCOSE [id number] 05:43:00 Test Item Value Reference Range Interpretation Comments GLUCOSE BEDSIDE (test 60 MG/DL 70-110 L Perfor med by certified code = GLUBED) 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[facility] GLUCOSE [id number] 20:43:00 Test Item Value Reference Range Interpretation Comments GLUCOSE BEDSIDE (test 194 MG/DL 70-110 H Perfor med by certified code = GLUBED) 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[facility] GLUCOSE [id number] 16:59:00 Test Item Value Reference Range Interpretation Comments GLUCOSE BEDSIDE (test 179 MG/DL 70-110 H Perfor med by certified code = GLUBED) 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[facility] FLUID [id number] 16:10:00 Test Item Value Reference Range Interpretation Comments FLUID CO2 (test code = CO2BF) 39 21-33 H FLUID [id number] 16:10:00 Test Item Value Reference Range Interpretation Comments FLUID CO2 (test code = CO2BF) 39 21-33 H GLUCOSE [id number] 12:10:00 Test Item Value Reference Range Interpretation Comments GLUCOSE BEDSIDE (test 137 MG/DL 70-110 H Perfor med by certified code = GLUBED) 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[facility] BASIC METABOLIC [id number] 08:04:00 Test Item Value Reference Range Interpretation [...] = 9.0 mg/dL 8.0-10.5 N CA) CALCIUM [id number] 08:04:00 Test Item Value Reference Range Interpretation Comments CALCIUM IONIZED (test code = TYREE) 1.15 MMOL/L 1.09-1.30 N GLUCOSE [id number] 05:42:00 Test Item Value Reference Range Interpretation Comments GLUCOSE BEDSIDE (test 92 MG/DL 70-110 N Perfor med by certified code = GLUBED) 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[facility] GLUCOSE [id number] 19:49:00 Test Item Value Reference Range Interpretation Comments GLUCOSE BEDSIDE (test 204 MG/DL 70-110 H Perfor med by certified code = GLUBED) 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[facility] GLUCOSE [id number] 15:58:00 Test Item Value Reference Range Interpretation Comments GLUCOSE BEDSIDE (test 122 MG/DL 70-110 H Perfor med by certified code = GLUBED) 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[facility] GLUCOSE [id number] 11:08:00 Test Item Value Reference Range Interpretation Comments GLUCOSE BEDSIDE (test 172 MG/DL 70-110 H Perfor med by certified code = GLUBED) 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[facility] [id number] 07:38:00 Test Item Value Reference Range Interpretation Comments POTASSIUM (test code = K) 3.0 mEq/L 3.4-5.0 L B-TYPE NATRIURETIC [id number] 07:27:00 Test Item Value Reference Range Interpretation Comments B-TYPE NATRIURETIC PEPTIDE (test 232.0 PG/ML 0-100 H code = BNP) GLUCOSE [id number] 06:10:00 Test Item Value Reference Range Interpretation Comments GLUCOSE BEDSIDE (test 94 MG/DL 70-110 N Perfor med by certified code = GLUBED) 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[facility] - XR CHEST 1 [id number] 00:00:00 [facility] 1945 Sex: F FAX:Abdiaziz Christiansen MD [phone] [place]: St: ADM FAX: Jesus Flores [phone] Name: SAÚL GILES [facility] : 1945 Age/S: 76/F [address] [place] [address] Unit #: [id number] Loc: [place] [address] Phys: Jesus Landry MD Acct: [id number] Dis Date: Status: ADM IN PHONE #: [phone] Date: 01/09/2022 0949 FAX #: [phone] Reason: SHORTNESS OF BREATH EXAMS: CPT CODE: [id number] XR CHEST 1 V 48583 PROCEDURE INFORMATION: Exam: XR Chest Exam date [...] Landry Technologist: RT Courtney(Marla) Trnscrd Date/Time/By: 01/09/2022 (1043) : By: Cindy.KWL Orig Print D/T: S: 01/09/2022 (0382) PAGE 1 Signed ReportGLUCOSE [id number] 20:39:00 Test Item Value Reference Range Interpretation Comments GLUCOSE BEDSIDE (test 167 MG/DL 70-110 H Perfor med by certified code = GLUBED) 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[facility] GLUCOSE [id number] 16:08:00 Test Item Value Reference Range Interpretation Comments GLUCOSE BEDSIDE (test 153 MG/DL 70-110 H Perfor med by certified code = GLUBED) 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[facility] GLUCOSE [id number] 11:08:00 Test Item Value Reference Range Interpretation Comments GLUCOSE BEDSIDE (test 195 MG/DL 70-110 H Perfor med by certified code = GLUBED) 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[facility] BASIC METABOLIC [id number] 08:05:00 Test Item Value Reference Range Interpretation [...] 9.4 mg/dL 8.0-10.5 N CA) RENAL FUNCTION [id number] 08:05:00 Test Item Value Reference Range Interpretation Comments ALBUMIN (test code = ALB) 3.50 g/dL 3.4-5.0 N PHOSPHOROUS (test code = PHOS) 2.7 MG/DL 2.5-4.9 N [id number] 08:05:00 Test Item Value Reference Range Interpretation Comments MAGNESIUM (test code = MAG) 1.83 mg/dL 1.80-2.40 N CBC W/AUTO [id number] 08:04:00 Test Item Value Reference Range Interpretation [...] = HGBA1C%) 5.8 %A1C 4.8-6.0 N GLUCOSE [id number] 05:36:00 Test Item Value Reference Range Interpretation Comments GLUCOSE BEDSIDE (test 117 MG/DL 70-110 H Perfor med by certified code = GLUBED) 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[facility] GLUCOSE [id number] 05:36:00 Test Item Value Reference Range Interpretation Comments GLUCOSE BEDSIDE (test 168 MG/DL 70-110 H Perfor med by certified code = GLUBED) 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[facility] GLUCOSE [id number] 18:16:00 Test Item Value Reference Range Interpretation Comments GLUCOSE BEDSIDE (test 194 MG/DL 70-110 H Perfor med by certified code = GLUBED) 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[facility] GLUCOSE [id number] 18:12:00 Test Item Value Reference Range Interpretation Comments GLUCOSE BEDSIDE (test 170 MG/DL 70-110 H Perfor med by certified code = GLUBED) 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0-10.5 N CA) [id number] 04:05:00 Test Item Value Reference Range Interpretation Comments MAGNESIUM (test code = MAG) 1.86 mg/dL 1.80-2.40 N CBC W/AUTO [id number] 03:38:00 Test Item Value Reference Range Interpretation [...] code NO = MDIFF) - DUP VEIN [id number] 00:00:00 [facility] 1945 Sex: F Name: SAÚL GILES [facility] : 1945 Age/S: 76 / F [address] [place] [address] Unit #: [id number] Loc: [place] [address] Phys: 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[facility] GLUCOSE [id number] 17:16:00 Test Item Value Reference Range Interpretation Comments GLUCOSE BEDSIDE (test 140 MG/DL 70-110 H Perfor med by certified code = GLUBED) 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[facility] GLUCOSE [id number] 12:54:00 Test Item Value Reference Range Interpretation Comments GLUCOSE BEDSIDE (test 215 MG/DL 70-110 H Perfor med by certified code = GLUBED) 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[facility] GLUCOSE [id number] 10:11:00 Test Item Value Reference Range Interpretation Comments GLUCOSE BEDSIDE (test 104 MG/DL 70-110 N Perfor med by certified code = GLUBED) 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[facility] CBC W/AUTO [id number] 04:30:00 Test Item Value Reference Range Interpretation [...] (test code NO = MDIFF) BASIC METABOLIC [id number] 03:15:00 Test Item Value Reference Range Interpretation [...] code = 9.4 mg/dL 8.0-10.5 N CA) [id number] 03:15:00 Test Item Value Reference Range Interpretation Comments MAGNESIUM (test code = MAG) 1.91 mg/dL 1.80-2.40 N GLUCOSE [id number] 23:31:00 Test Item Value Reference Range Interpretation Comments GLUCOSE BEDSIDE (test 108 MG/DL 70-110 N Perfor med by certified code = GLUBED) 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[facility] GLUCOSE [id number] 23:31:00 Test Item Value Reference Range Interpretation Comments GLUCOSE BEDSIDE (test 259 MG/DL 70-110 H Perfor med by certified code = GLUBED) 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..] code = 9.8 mg/dL 8.0-10.5 N CA) [id number] 04:06:00 Test Item Value Reference Range Interpretation Comments MAGNESIUM (test code = MAG) 2.02 mg/dL 1.80-2.40 N CBC W/AUTO [id number] 03:56:00 Test Item Value Reference Range Interpretation [...] NO = MDIFF) - XR CHEST 1 [id number] 00:00:00 [facility] 1945 Sex: F FAX:Jeffry Pennington MD [phone] [place]: St: ADM FAX: Abdiaziz Christiansen MD [phone] FAX: René Blancas [phone] FAX: Colt Aguillon MD [phone] Name: SAÚL GILES [facility] [place] : 1945 Age/S: 76/F [address] [place] [address] Unit #: [id number] Loc: [address] [place] [address] Phys: René Romero MD Acct: [id number] Dis Date: Status: ADM IN PHONE #: [phone] Exam Date: 01/04/2022711 FAX #: [phone] Reason: R/O PLEURAL EFFUSION EXAMS: CPT CODE: [id number] XR CHEST 1 V 46077 PROCEDURE INFORMATION: Exam: XR Chest Exam date [...] by: Mark Anthony Willis M.D. 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[facility] GLUCOSE [id number] 16:49:00 Test Item Value Reference Range Interpretation Comments GLUCOSE BEDSIDE (test 180 MG/DL 70-110 H Perfor med by certified code = GLUBED) 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.] code = 9.8 mg/dL 8.0-10.5 N CA) [id number] 05:21:00 Test Item Value Reference Range Interpretation Comments MAGNESIUM (test code = MAG) 2.20 mg/dL 1.80-2.40 N CBC W/AUTO [id number] 05:15:00 Test Item Value Reference Range Interpretation [...] NO = MDIFF) - XR CHEST 1 [id number] 00:00:00 [facility] : 1945 Sex: F FAX:Jeffry Pennington MD [phone] [place]: St: ADM FAX: Abdiaziz Christiansen MD [phone] FAX: René Blancas [phone] FAX: Colt Aguillon MD [phone] Name: SAÚL GILES [facility] [place] : 1945 Age/S: 76/F [address] [place] [address] Unit #: [id number] Loc: [address] [address] Phys: René Romero MD Acct: [id number] Dis Date: Status: ADM IN PHONE #: [phone] Exam Date: FAX #: [phone] Reason: R/O PLEURAL EFFUSION EXAMS: CPT CODE: [id number] XR CHEST 1 V 83206 PROCEDURE INFORMATION: Exam: XR Chest Exam date [...] signed by: Nicholas Dominguez M.D. 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[facility] GLUCOSE [id number] 17:13:00 Test Item Value Reference Range Interpretation Comments GLUCOSE BEDSIDE (test 164 MG/DL 70-110 H Perfor med by certified code = GLUBED) 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..] code = 9.8 mg/dL 8.0-10.5 N CA) [id number] 04:53:00 Test Item Value Reference Range Interpretation Comments MAGNESIUM (test code = MAG) 2.02 mg/dL 1.80-2.40 N CBC W/AUTO [id number] 04:33:00 Test Item Value Reference Range Interpretation [...] code NO = MDIFF) POC ARTERIAL BLOOD [id number] 04:18:00 Test Item Value Reference Range Interpretation Comments POC ARTERIAL BLOOD GAS PH (test 7.351 7.35-7.45 N code = POCPHA) POC ARTERIAL BLOOD GAS PCO2 (test 69.0 mmHg 35.0-45 HH code = KZLJFB3S) POC TCO2 ARTERIAL (test code = 40.5 POCTCO2) POC ARTERIAL BLOOD GAS PO2 (test 94.8 mmHg 80-100.0 N code = PFPDI0A) POC HCO3 ARTERIAL (test code = 38.4 MMOL/L 22.0-26.0 HH [id number]) POC BASE EXCESS (test code = 12.7 MMOL/L -4.0-4.0 H POCBEA) POC O2 SATURATION (test code = 96.7 % 90-100 N POCO2S) ABG DELIVERY (test code = MAAME) Cannula ABG TEMPERATURE (test code = 98 F TEMPA) ABG SITE (test code = SITEA) Art Line MARTIN'S TEST (test code = ALLENS) N/A BASIC METABOLIC [id number] 04:18:00 Test Item Value Reference Range Interpretation [...] = POCGLU) 157 MG/DL 70-110 H HEMOGLOBIN [id number] 04:18:00 Test Item Value Reference Range Interpretation Comments HEMOGLOBIN ABG (test code = HGB/ABG) 9.3 G/DL 11.0-15.0 L [id number] 04:18:00 Test Item Value Reference Range Interpretation Comments HEMATOCRIT (test code = HCT/ABG) 27 % 33.0-45.0 L POC LACTIC [id number] 04:18:00 Test Item Value Reference Range Interpretation Comments POC LACTIC ACID (test code = 0.6 mmol/l 0.9-1.7 L POCLAC) - XR CHEST 1 [id number] 00:00:00 [facility] 1945 Sex: F FAX:Jeffry Pennington MD [phone] [place]: St: ADM FAX: Abdiaziz Christiansen MD [phone] FAX: Solange Sawyer MD [phone] FAX: Colt Aguillon MD [phone] Name: SAÚL GILES [facility] : 1945 Age/S: 76/F [address] [place] [address] Unit #: [id number] Loc: [address] [place] [address] Phys: Solange Mohamud MD Acct: [id number] Dis Date: Status: ADM IN PHONE #: [phone] Exam Date: 01/02/202231 FAX #: [phone] Reason: POST-OP CV SURGERY EXAMS: CPT CODE: [id number] XR CHEST 1 V 18183 PROCEDURE INFORMATION: Exam: XR Chest Exam date [...] signed by: Syeda Leblanc M.D. 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[facility] GLUCOSE [id number] 18:21:00 Test Item Value Reference Range Interpretation Comments GLUCOSE BEDSIDE (test 218 MG/DL 70-110 H Perfor med by certified code = GLUBED) 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[facility] GLUCOSE [id number] 12:23:00 Test Item Value Reference Range Interpretation Comments GLUCOSE BEDSIDE (test 191 MG/DL 70-110 H Perfor med by certified code = GLUBED) 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[facility] GLUCOSE [id number] 08:52:00 Test Item Value Reference Range Interpretation Comments GLUCOSE BEDSIDE (test 95 MG/DL 70-110 N [facility] by certified code = GLUBED) 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[facility] POC ARTERIAL BLOOD [id number] 06:26:00 Test Item Value Reference Range Interpretation Comments POC ARTERIAL BLOOD GAS PH (test 7.380 7.35-7.45 N code = POCPHA) POC ARTERIAL BLOOD GAS PCO2 65.2 mmHg 35.0-45 HH (test code = SRYOLJ2D) POC TCO2 ARTERIAL (test code = 40.8 POCTCO2) POC ARTERIAL BLOOD GAS PO2 (test 98.3 mmHg 80-100.0 N code = TUGMO7Q) POC HCO3 ARTERIAL (test code = 38.8 MMOL/L 22.0-26.0 HH WUAOPC3U) POC BASE EXCESS (test code = 13.5 MMOL/L -4.0-4.0 H POCBEA) POC O2 SATURATION (test code = 97.3 % 90-100 N POCO2S) FIO2 (test code = FIO2A) 40 % PaO2/FiO2 (test code = PJK1JDL1) 245.75 mm/Hg ABG DELIVERY (test code = [...] (test code = N/A ALLENS) BASIC METABOLIC [id number] 06:26:00 Test Item Value Reference Range Interpretation [...] = POCGLU) 90 MG/DL 70-110 N HEMOGLOBIN [id number] 06:26:00 Test Item Value Reference Range Interpretation Comments HEMOGLOBIN ABG (test code = HGB/ABG) 8.1 G/DL 11.0-15.0 L [id number] 06:26:00 Test Item Value Reference Range Interpretation Comments HEMATOCRIT (test code = HCT/ABG) 24 % 33.0-45.0 L POC LACTIC [id number] 06:26:00 Test Item Value Reference Range Interpretation Comments POC LACTIC ACID (test code = 0.4 mmol/l 0.9-1.7 L POCLAC) BASIC METABOLIC [id number] 04:01:00 Test Item Value Reference Range Interpretation [...] code = 9.5 mg/dL 8.0-10.5 N CA) [id number] 04:01:00 Test Item Value Reference Range Interpretation Comments MAGNESIUM (test code = MAG) 1.92 mg/dL 1.80-2.40 N CBC W/AUTO [id number] 03:40:00 Test Item Value Reference Range Interpretation [...] NO = MDIFF) - XR CHEST 1 [id number] 00:00:00 [facility] 1945 Sex: F FAX:Jeffry Pennington MD [phone] [place]: St: ADM FAX: Abdiaziz Christiansen MD [phone] FAX: Solange Sawyer MD [phone] FAX: Colt Aguillon MD [phone] Name: SAÚL GILES [facility] : 1945 Age/S: 76/F [address] [place] [address] Unit #: [id number] Loc: [address] [place] [address] Phys: Solange Mohamud MD Acct: [id number] Dis Date: Status: ADM IN PHONE #: [phone] Exam Date: 01/01/2022 06 FAX #: [phone] Reason: POST-OP CV SURGERY EXAMS: CPT CODE: [id number] XR CHEST 1 V [id number] PROCEDUREINFORMATION: Exam: XR Chest Exam date and [...] signed by: Jasmeet Carlisle M.D. CC: Jeffry More MD; Abdiaziz Fucsh MD; Solange Mohamud MD; Colt Vail MD Technologist: RT Joe(R) Trnscrd Date/Time/By: 01/01/2022 (701) : By: Catherine Orig Print D/T: S: 01/01/2022 (701) PAGE 1 Signed ReportVER[facility] ART[facility] BLOOD [id number] 20:21:00 Test Item Value Reference Range Interpretation Comments POC ARTERIAL BLOOD GAS PH (test 7.396 7.35-7.45 N code = POCPHA) POC ARTERIAL BLOOD GAS PCO2 (test 59.8 mmHg 35.0-45 HH code = UIBQBO6A) POC TCO2 ARTERIAL (test code = 38.8 POCTCO2) POC ARTERIAL BLOOD GAS PO2 (test 75.7 mmHg 80-100.0 L code = IFHHL9X) POC HCO3 ARTERIAL (test code = 36.9 MMOL/L 22.0-26.0 HH BJESWU5O) POC BASE EXCESS (test code = 11.9 MMOL/L -4.0-4.0 H POCBEA) POC O2 SATURATION (test code = 94.9 % 90-100 N POCO2S) ABG DELIVERY (test code = MAAME) Cannula ABG TEMPERATURE (test code = 97.5 F TEMPA) ABG SITE (test code = SITEA) Art Line MARTIN'S TEST (test code = ALLENS) N/A BASIC METABOLIC [id number] 20:21:00 Test Item Value Reference Range Interpretation [...] = POCGLU) 190 MG/DL 70-110 H HEMOGLOBIN [id number] 20:21:00 Test Item Value Reference Range Interpretation Comments HEMOGLOBIN ABG (test code = HGB/ABG) 8.7 G/DL 11.0-15.0 L [id number] 20:21:00 Test Item Value Reference Range Interpretation Comments HEMATOCRIT (test code = HCT/ABG) 26 % 33.0-45.0 L POC LACTIC [id number] 20:21:00 Test Item Value Reference Range Interpretation Comments POC LACTIC ACID (test code = 1.0 mmol/l 0.9-1.7 N POCLAC) POC ARTERIAL BLOOD [id number] 16:38:00 Test Item Value Reference Range Interpretation Comments POC ARTERIAL BLOOD GAS PH (test 7.402 7.35-7.45 N code = POCPHA) POC ARTERIAL BLOOD GAS PCO2 57.4 mmHg 35.0-45 HH (test code = ETTHOB3O) POC TCO2 ARTERIAL (test code = 37.7 POCTCO2) POC ARTERIAL BLOOD GAS PO2 (test 45.7 mmHg 80-100.0 LL code = UFPCG8E) POC HCO3 ARTERIAL (test code = 35.9 MMOL/L 22.0-26.0 HH BVYDHY1O) POC BASE EXCESS (test code = 11.0 MMOL/L -4.0-4.0 H POCBEA) POC O2 SATURATION (test code = 81.8 % 90-100 L POCO2S) FIO2 (test code = FIO2A) 32 % PaO2/FiO2 (test code = VPW1JII2) 142.81 mm/Hg ABG TEMPERATURE (test code = 97.3 F TEMPA) ABG SITE (test code = SITEA) Art Line BASIC METABOLIC [id number] 16:38:00 Test Item Value Reference Range Interpretation [...] = POCGLU) 313 MG/DL 70-110 H HEMOGLOBIN [id number] 16:38:00 Test Item Value Reference Range Interpretation Comments HEMOGLOBIN ABG (test code = HGB/ABG) 9.3 G/DL 11.0-15.0 L [id number] 16:38:00 Test Item Value Reference Range Interpretation Comments HEMATOCRIT (test code = HCT/ABG) 27 % 33.0-45.0 L POC LACTIC [id number] 16:38:00 Test Item Value Reference Range Interpretation Comments POC LACTIC ACID (test code = 1.0 mmol/l 0.9-1.7 N POCLAC) GLUCOSE [id number] 12:28:00 Test Item Value Reference Range Interpretation Comments GLUCOSE BEDSIDE (test 149 MG/DL 70-110 H Perfor med by certified code = GLUBED) 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[facility] CBC W/AUTO [id number] 11:32:00 Test Item Value Reference Range Interpretation [...] REQUIRED (test code NO = MDIFF) RBC [id number] 11:32:00 Test Item Value Reference Range Interpretation Comments ANISOCYTOSIS (test code = ANISO) 1+ POLYCHROMASIA (test code = POLC) 2+ HYPOCHROMIA (test code = HYPO) 1+ MACROCYTOSIS (test code = MACR) 1+ ROULEAUX (test code = ROU) 2+ POC ARTERIAL BLOOD [id number] 09:54:00 Test Item Value Reference Range Interpretation Comments POC ARTERIAL BLOOD GAS PH (test 7.445 7.35-7.45 N code = POCPHA) POC ARTERIAL BLOOD GAS PCO2 50.2 mmHg 35.0-45 HH (test code = USZLUJ8H) POC TCO2 ARTERIAL (test code = 36.3 POCTCO2) POC ARTERIAL BLOOD GAS PO2 (test 41.6 mmHg 80-100.0 LL code = JCQYD7K) POC HCO3 ARTERIAL (test code = 34.7 MMOL/L 22.0-26.0 HH AJXEYV4J) POC BASE EXCESS (test code = 10.5 MMOL/L -4.0-4.0 H POCBEA) POC O2 SATURATION (test code = 80.0 % 90-100 L POCO2S) FIO2 (test code = FIO2A) 24 % PaO2/FiO2 (test code = YHV4KHT0) 173.33 mm/Hg ABG TEMPERATURE (test code = 97.2 F TEMPA) ABG SITE (test code = SITEA) Art Line BASIC METABOLIC [id number] 09:54:00 Test Item Value Reference Range Interpretation [...] = POCGLU) 175 MG/DL 70-110 H HEMOGLOBIN [id number] 09:54:00 Test Item Value Reference Range Interpretation Comments HEMOGLOBIN ABG (test code = HGB/ABG) 9.4 G/DL 11.0-15.0 L [id number] 09:54:00 Test Item Value Reference Range Interpretation Comments HEMATOCRIT (test code = HCT/ABG) 28 % 33.0-45.0 L POC LACTIC [id number] 09:54:00 Test Item Value Reference Range Interpretation Comments POC LACTIC ACID (test code = 0.8 mmol/l 0.9-1.7 L POCLAC) POC ARTERIAL BLOOD [id number] 08:57:00 Test Item Value Reference Range Interpretation Comments POC ARTERIAL BLOOD GAS PH (test 7.444 7.35-7.45 N code = POCPHA) POC ARTERIAL BLOOD GAS PCO2 (test 50.4 mmHg 35.0-45 HH code = [id number]) POC TCO2 ARTERIAL (test code = 36.1 POCTCO2) POC ARTERIAL BLOOD GAS PO2 (test 33.9 mmHg 80-100.0 LL code = VRORL5L) POC HCO3 ARTERIAL (test code = 34.6 MMOL/L 22.0-26.0 HH [id number]) POC BASE EXCESS (test code = 10.5 MMOL/L -4.0-4.0 H POCBEA) POC O2 SATURATION (test code = 66.6 % 90-100 L POCO2S) ABG DELIVERY (test code = MAAME) Room Air BASIC METABOLIC [id number] 08:57:00 Test Item Value Reference Range Interpretation [...] = POCGLU) 125 MG/DL 70-110 H HEMOGLOBIN [id number] 08:57:00 Test Item Value Reference Range Interpretation Comments HEMOGLOBIN ABG (test code = HGB/ABG) 9.4 G/DL 11.0-15.0 L [id number] 08:57:00 Test Item Value Reference Range Interpretation Comments HEMATOCRIT (test code = HCT/ABG) 28 % 33.0-45.0 L POC LACTIC [id number] 08:57:00 Test Item Value Reference Range Interpretation Comments POC LACTIC ACID (test code = 0.9 mmol/l 0.9-1.7 N POCLAC) GLUCOSE [id number] 08:05:00 Test Item Value Reference Range Interpretation Comments GLUCOSE BEDSIDE (test 82 MG/DL 70-110 N Perfor med by certified code = GLUBED) 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[facility] BASIC METABOLIC [id number] 04:53:00 Test Item Value Reference Range Interpretation [...] code = 9.8 mg/dL 8.0-10.5 N CA) [id number] 04:53:00 Test Item Value Reference Range Interpretation Comments MAGNESIUM (test code = MAG) 2.24 mg/dL 1.80-2.40 POC ARTERIAL BLOOD [id number] 04:37:00 Test Item Value Reference Range Interpretation Comments POC ARTERIAL BLOOD GAS PH (test 7.393 7.35-7.45 N code = POCPHA) POC ARTERIAL BLOOD GAS PCO2 (test 66.2 mmHg 35.0-45 HH code = XMRCJT6N) POC TCO2 ARTERIAL (test code = 42.5 POCTCO2) POC ARTERIAL BLOOD GAS PO2 (test 93.0 mmHg 80-100.0 N code = YSFJW0M) POC HCO3 ARTERIAL (test code = 40.4 MMOL/L 22.0-26.0 HH FEHVYD8D) POC BASE EXCESS (test code = 15.5 MMOL/L -4.0-4.0 H POCBEA) POC O2 SATURATION (test code = 96.8 % 90-100 N POCO2S) ABG DELIVERY (test code = MAAME) Cannula ABG TEMPERATURE (test code = 98.2 F TEMPA) ABG SITE (test code = SITEA) Art Line BASIC METABOLIC [id number] 04:37:00 Test Item Value Reference Range Interpretation [...] = POCGLU) 83 MG/DL 70-110 N HEMOGLOBIN [id number] 04:37:00 Test Item Value Reference Range Interpretation Comments HEMOGLOBIN ABG (test code = 15.1 G/DL 11.0-15.0 H HGB/ABG) [id number] 04:37:00 Test Item Value Reference Range Interpretation Comments HEMATOCRIT (test code = HCT/ABG) 44 % 33.0-45.0 N POC LACTIC [id number] 04:37:00 Test Item Value Reference Range Interpretation Comments POC LACTIC ACID (test code = 0.7 mmol/l 0.9-1.7 L POCLAC) - XR CHEST 1 [id number] 00:00:00 [facility] 1945 Sex: F FAX:Jeffry Pennington MD [phone] [place]: St: ADM FAX: Abidaziz Christiansen MD [phone] FAX: Solange Sawyer MD [phone] FAX: Colt Aguillon MD [phone] Name: SAÚL GILES [facility] : 1945 Age/S: 76/F [address] [place] [address] Unit #: [id number] Loc: G.[address] [place] [address] Phys: Solange Mohamud MD Acct: [id number] Dis Date: Status: ADM IN PHONE #: [phone] Exam Date: 12/31/2021628 FAX #: [phone] Reason: POST-OP CV SURGERY EXAMS: CPT CODE: [id number] XR CHEST 1 V 10212 PROCEDURE INFORMATION: Exam: XR Chest Exam date [...] signed by: Jasmeet Carlisle M.D. 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[facility] BASIC METABOLIC [id number] 19:24:00 Test Item Value Reference Range Interpretation [...] code = 9.8 mg/dL 8.0-10.5 N CA) [id number] 19:24:00 Test Item Value Reference Range Interpretation Comments MAGNESIUM (test code = MAG) 1.84 mg/dL 1.80-2.40 GLUCOSE [id number] 17:33:00 Test Item Value Reference Range Interpretation Comments GLUCOSE BEDSIDE (test 213 MG/DL 70-110 H [facility] by certified code = GLUBED) 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[facility] GLUCOSE [id number] 12:11:00 Test Item Value Reference Range Interpretation Comments GLUCOSE BEDSIDE (test 146 MG/DL 70-110 H [facility] med by certified code = GLUBED) 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[facility] POC ARTERIAL BLOOD [id number] 11:42:00 Test Item Value Reference Range Interpretation Comments POC ARTERIAL BLOOD GAS PH (test 7.373 7.35-7.45 N code = POCPHA) POC ARTERIAL BLOOD GAS PCO2 (test 60.9 mmHg 35.0-45 HH code = VQZZMU8C) POC TCO2 ARTERIAL (test code = 37.3 POCTCO2) POC ARTERIAL BLOOD GAS PO2 (test 57.7 mmHg 80-100.0 L code = LVTRH5K) POC HCO3 ARTERIAL (test code = 35.5 MMOL/L 22.0-26.0 HH MEFPYC7M) POC BASE EXCESS (test code = 10.2 MMOL/L -4.0-4.0 H POCBEA) POC O2 SATURATION (test code = 87.8 % 90-100 L POCO2S) ABG DELIVERY (test code = MAAME) HFNC ABG TEMPERATURE (test code = 98.6 F TEMPA) ABG SITE (test code = SITEA) L Radial MARTIN'S TEST (test code = ALLENS) N/A BASIC METABOLIC [id number] 11:42:00 Test Item Value Reference Range Interpretation [...] = POCGLU) 103 MG/DL 70-110 N HEMOGLOBIN [id number] 11:42:00 Test Item Value Reference Range Interpretation Comments HEMOGLOBIN ABG (test code = HGB/ABG) 8.3 G/DL 11.0-15.0 L [id number] 11:42:00 Test Item Value Reference Range Interpretation Comments HEMATOCRIT (test code = HCT/ABG) 24 % 33.0-45.0 L POC LACTIC [id number] 11:42:00 Test Item Value Reference Range Interpretation Comments POC LACTIC ACID (test code = 0.7 mmol/l 0.9-1.7 L POCLAC) BASIC METABOLIC [id number] 05:54:00 Test Item Value Reference Range Interpretation [...] code = 9.9 mg/dL 8.0-10.5 N CA) [id number] 05:54:00 Test Item Value Reference Range Interpretation Comments MAGNESIUM (test code = MAG) 2.23 mg/dL 1.80-2.40 N CBC W/AUTO [id number] 05:01:00 Test Item Value Reference Range Interpretation [...] code NO = MDIFF) POC ARTERIAL BLOOD [id number] 04:58:00 Test Item Value Reference Range Interpretation Comments POC ARTERIAL BLOOD GAS PH (test 7.355 7.35-7.45 N code = POCPHA) POC ARTERIAL BLOOD GAS PCO2 68.7 mmHg 35.0-45 HH (test code = NZMXZS9U) POC TCO2 ARTERIAL (test code = 40.8 POCTCO2) POC ARTERIAL BLOOD GAS PO2 (test 61.3 mmHg 80-100.0 L code = WNRHS2P) POC HCO3 ARTERIAL (test code = 38.7 MMOL/L 22.0-26.0 HH KBGIID7F) POC BASE EXCESS (test code = 12.9 MMOL/L -4.0-4.0 H POCBEA) POC O2 SATURATION (test code = 89.8 % 90-100 L POCO2S) FIO2 (test code = FIO2A) 40 % PaO2/FiO2 (test code = JLG1PTV6) 153.25 mm/Hg ABG DELIVERY (test code = MAAME) BiPAP ABG VENT RESP RATE (test code = 20 /MIN RRA) ABG PEEP (test code = PEEPA) 8 cmH2O ABG TEMPERATURE (test code = 97.2 F TEMPA) ABG SITE (test code = SITEA) Art Line BASIC METABOLIC [id number] 04:58:00 Test Item Value Reference Range Interpretation [...] = POCGLU) 112 MG/DL 70-110 H HEMOGLOBIN [id number] 04:58:00 Test Item Value Reference Range Interpretation Comments HEMOGLOBIN ABG (test code = HGB/ABG) 7.6 G/DL 11.0-15.0 L [id number] 04:58:00 Test Item Value Reference Range Interpretation Comments HEMATOCRIT (test code = HCT/ABG) 22 % 33.0-45.0 L POC LACTIC [id number] 04:58:00 Test Item Value Reference Range Interpretation Comments POC LACTIC ACID (test code = 0.5 mmol/l 0.9-1.7 L POCLAC) - CT CHEST W/O [id number] 00:00:00 [facility] 1945 Sex: F Name: SAÚL GILES [facility] : 1945 Age/S: 76 / F [address] [place] [address] Unit #: [id number] Loc: [place] [address] Phys: Kena Macedo 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 ATTENDANT Acct: [id number] Dis Date: Status: ADM IN PHONE #: [phone] Exam Date: 12/30/2021 1316 FAX #: [phone] Reason: EVAL WORSENING PULM OPPACITIES EXAMS: CPT CODE: [id number] CT CHEST W/O CONTRAST 81332 PROCEDURE INFORMATION: Exam: CT Chest Without Contrast; [...] Center : 1945 Age/S: 76 / F [address] [place] [address] Unit #: [id number] Loc: [place] [address] Phys: Kena Arboleda CHILD WATCH ATTENDANT Acct: [id number] Dis Date: Status: ADM IN PHONE #: [phone] Exam Date: 12/30/2021 1316 FAX #: [phone] Reason: EVAL WORSENING PULM OPPACITIES EXAMS: CPT CODE: [id number] CTCHEST W/O CONTRAST 40536 (Continued) 1. Bilateral multifocal ground-glass pulmonary opacities [...] Small volume anterior mediastinal hematoma/seroma. REFERENCES: Michael Vinson et al., Radiological Society of North AmericaExpert Consensus Statement on Reporting Chest CT Findings Related to COVID-19. Endorsed by the Society of Thoracic Radiology, the [place], and RSNA. Published June 07, 2019. at 1433 Reported and signed by: Jasmeet Carlisle M.D. CC: Jeffry More MD; Abdiaziz Fuchs MD; Kena Macedo NP; Colt Vail MD Technologist:Ming Chapman, RT(R)(CT) CTDI: DLP: Trnscb Date/Time: 12/30/2021 (1432) [id number] Orig Print D/T: S: 12/30/2021 (1433) PAGE 2 Signed Report- XR CHEST 1 [id number] 00:00:00 [facility] : 1945 Sex: F FAX:Jeffry Pennington MD [phone] [place]: St: ADM FAX: Abdiaziz Christiansen MD [phone] FAX: Solange Sawyer MD [phone] FAX: Colt Aguillon MD [phone] Name: SAÚL GILES [facility] : 1945 Age/S: 76/F [address] [place] [address] Unit #: [id number] Loc: [address] [address] Phys: Solange Mohamud MD Acct: [id number] Dis Date: Status: ADM IN PHONE #: [phone] Exam Date: 12/30/2021 0612FAX #: [phone] Reason: POST-OP CV SURGERY EXAMS: CPT CODE: [id number] XR CHEST 1 V 23493 PROCEDURE INFORMATION: Exam: XR Chest Exam date [...] Signed Report (CONTINUED) FAX: Jeffry Pennington MD [phone] [place]: St: ADM FAX: Abdiaziz Christiansen MD [phone] FAX: Solange Sawyer MD [phone] FAX: Colt Aguillon MD [phone] Name: SAÚL GILES [facility] : 1945ge/S: 76/F [address] [place] [address] Unit #: [id number] Loc: G.[address] [place] [address] Phys: Solange Mohamud MD Acct: [id number] Dis Date: Status: ADM IN PHONE #: [phone] Exam Date: 12/30/2021611 FAX #: [phone] Reason: POST-OP CV SURGERY EXAMS: CPT CODE: [id number] XR CHEST 1 V 84261 (Continued) CC: Jeffry More MD; Abdiaziz Fuchs MD; Solange Mohamud MD; Colt Vail MD Technologist: Hali Leon, RT(R) Trnscrd Date/Time/By: 12/30/2021 (705) : By: Catherine Orig Print D/T: S: 12/30/2021 (705) PAGE 2 Signed ReportGLUCOSE [id number] 20:24:00 Test Item Value Reference Range Interpretation Comments GLUCOSE BEDSIDE (test 185 MG/DL 70-110 H [facility] by certified code = GLUBED) 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[facility] GLUCOSE [id number] 18:05:00 Test Item Value Reference Range Interpretation Comments GLUCOSE BEDSIDE (test 197 MG/DL 70-110 H [facility] by certified code = GLUBED) 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[facility] BASIC METABOLIC [id number] 12:52:00 Test Item Value Reference Range Interpretation [...] code = 9.5 mg/dL 8.0-10.5 N CA) [id number] 12:52:00 Test Item Value Reference Range Interpretation Comments MAGNESIUM (test code = MAG) 2.38 mg/dL 1.80-2.40 N GLUCOSE [id number] 12:29:00 Test Item Value Reference Range Interpretation Comments GLUCOSE BEDSIDE (test 236 MG/DL 70-110 H [facility] by certified code = GLUBED) 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[facility] GLUCOSE [id number] 08:29:00 Test Item Value Reference Range Interpretation Comments GLUCOSE BEDSIDE (test 150 MG/DL 70-110 H [facility] by certified code = GLUBED) 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[facility] GLUCOSE [id number] 05:47:00 Test Item Value Reference Range Interpretation Comments GLUCOSE BEDSIDE (test 126 MG/DL 70-110 H [facility] by certified code = GLUBED) 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[facility] POC ARTERIAL BLOOD [id number] 05:42:00 Test Item Value Reference Range Interpretation Comments POC ARTERIAL BLOOD GAS PH (test 7.357 7.35-7.45 N code = POCPHA) POC ARTERIAL BLOOD GAS PCO2 71.1 mmHg 35.0-45 HH (test code = RDYJKA8Y) POC TCO2 ARTERIAL (test code = 42.4 POCTCO2) POC ARTERIAL BLOOD GAS PO2 (test 83.8 mmHg 80-100.0 N code = PHLKH1J) POC HCO3 ARTERIAL (test code = 40.1 MMOL/L 22.0-26.0 HH TUPGQS9M) POC BASE EXCESS (test code = 14.5 MMOL/L -4.0-4.0 H POCBEA) POC O2 SATURATION (test code = 95.5 % 90-100 N POCO2S) FIO2 (test code = FIO2A) 40 % PaO2/FiO2 (test code = JPF8GVE2) 209.50 mm/Hg ABG DELIVERY (test code = MAAME) BiPAP ABG TEMPERATURE (test code = 97.5 F TEMPA) ABG SITE (test code = SITEA) Art Line BASIC METABOLIC [id number] 05:42:00 Test Item Value Reference Range Interpretation [...] = POCGLU) 122 MG/DL 70-110 H HEMOGLOBIN [id number] 05:42:00 Test Item Value Reference Range Interpretation Comments HEMOGLOBIN ABG (test code = HGB/ABG) 7.8 G/DL 11.0-15.0 L [id number] 05:42:00 Test Item Value Reference Range Interpretation Comments HEMATOCRIT (test code = HCT/ABG) 23 % 33.0-45.0 L POC LACTIC [id number] 05:42:00 Test Item Value Reference Range Interpretation Comments POC LACTIC ACID (test code = 0.5 mmol/l 0.9-1.7 L POCLAC) [id number] 04:44:00 Test Item Value Reference Range Interpretation Comments MAGNESIUM (test code = MAG) 2.29 mg/dL 1.80-2.40 N BASIC METABOLIC [id number] 04:22:00 Test Item Value Reference Range Interpretation [...] 9.5 mg/dL 8.0-10.5 N CA) CBC W/AUTO [id number] 04:12:00 Test Item Value Reference Range Interpretation [...] REQUIRED (test code NO = MDIFF) GLUCOSE [id number] 03:12:00 Test Item Value Reference Range Interpretation Comments GLUCOSE BEDSIDE (test 124 MG/DL 70-110 H [facility] med by certified code = GLUBED) 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[facility] POC ARTERIAL BLOOD [id number] 03:03:00 Test Item Value Reference Range Interpretation Comments POC ARTERIAL BLOOD GAS PH (test 7.367 7.35-7.45 N code = POCPHA) POC ARTERIAL BLOOD GAS PCO2 73.2 mmHg 35.0-45 HH (test code = TOYOOY7I) POC TCO2 ARTERIAL (test code = 44.7 POCTCO2) POC ARTERIAL BLOOD GAS PO2 (test 84.4 mmHg 80-100.0 N code = ILRYX5O) POC HCO3 ARTERIAL (test code = 42.4 MMOL/L 22.0-26.0 HH RQMAHB5O) POC BASE EXCESS (test code = 16.9 MMOL/L -4.0-4.0 H POCBEA) POC O2 SATURATION (test code = 95.7 % 90-100 N POCO2S) FIO2 (test code = FIO2A) 40 % PaO2/FiO2 (test code = LKI1GVM7) 211.00 mm/Hg ABG DELIVERY (test code = MAAME) BiPAP ABG TEMPERATURE (test code = 97.5 F TEMPA) ABG SITE (test code = SITEA) Art Line BASIC METABOLIC [id number] 03:03:00 Test Item Value Reference Range Interpretation [...] = POCGLU) 125 MG/DL 70-110 H HEMOGLOBIN [id number] 03:03:00 Test Item Value Reference Range Interpretation Comments HEMOGLOBIN ABG (test code = HGB/ABG) 8.2 G/DL 11.0-15.0 L [id number] 03:03:00 Test Item Value Reference Range Interpretation Comments HEMATOCRIT (test code = HCT/ABG) 24 % 33.0-45.0 L POC LACTIC [id number] 03:03:00 Test Item Value Reference Range Interpretation Comments POC LACTIC ACID (test code = 0.5 mmol/l 0.9-1.7 L POCLAC) POC ARTERIAL BLOOD [id number] 02:09:00 Test Item Value Reference Range Interpretation Comments POC ARTERIAL BLOOD GAS PH (test 7.327 7.35-7.45 L code = POCPHA) POC ARTERIAL BLOOD GAS PCO2 80.5 mmHg 35.0-45 HH (test code = ZIDQFC7P) POC TCO2 ARTERIAL (test code = 45.0 POCTCO2) POC ARTERIAL BLOOD GAS PO2 (test 73.3 mmHg 80-100.0 L code = KLAZW0S) POC HCO3 ARTERIAL (test code = 42.4 MMOL/L 22.0-26.0 HH PANQXO0L) POC BASE EXCESS (test code = 16.3 MMOL/L -4.0-4.0 H POCBEA) POC O2 SATURATION (test code = 92.8 % 90-100 N POCO2S) FIO2 (test code = FIO2A) 40 % PaO2/FiO2 (test code = MUL7RWM9) 183.25 mm/Hg ABG DELIVERY (test code = MAAME) BiPAP ABG TEMPERATURE (test code = 97.5 F TEMPA) ABG SITE (test code = SITEA) Art Line BASIC METABOLIC [id number] 02:09:00 Test Item Value Reference Range Interpretation [...] = POCGLU) 106 MG/DL 70-110 N HEMOGLOBIN [id number] 02:09:00 Test Item Value Reference Range Interpretation Comments HEMOGLOBIN ABG (test code = HGB/ABG) 7.9 G/DL 11.0-15.0 L [id number] 02:09:00 Test Item Value Reference Range Interpretation Comments HEMATOCRIT (test code = HCT/ABG) 23 % 33.0-45.0 L POC LACTIC [id number] 02:09:00 Test Item Value Reference Range Interpretation Comments POC LACTIC ACID (test code = 0.5 mmol/l 0.9-1.7 L POCLAC) POC ARTERIAL BLOOD [id number] 01:21:00 Test Item Value Reference Range Interpretation Comments POC ARTERIAL BLOOD GAS PH (test 7.326 7.35-7.45 L code = POCPHA) POC ARTERIAL BLOOD GAS PCO2 81.2 mmHg 35.0-45 HH (test code = BISLFE1E) POC TCO2 ARTERIAL (test code = 45.3 POCTCO2) POC ARTERIAL BLOOD GAS PO2 (test 78.4 mmHg 80-100.0 L code = OMCTE4V) POC HCO3 ARTERIAL (test code = 42.8 MMOL/L 22.0-26.0 HH XBOGVX9W) POC BASE EXCESS (test code = 16.6 MMOL/L -4.0-4.0 H POCBEA) POC O2 SATURATION (test code = 94.0 % 90-100 N POCO2S) FIO2 (test code = FIO2A) 40 % PaO2/FiO2 (test code = VNW9XKO7) 196.00 mm/Hg ABG DELIVERY (test code = MAAME) BiPAP ABG TEMPERATURE (test code = 97.3 F TEMPA) ABG SITE (test code = SITEA) Art Line MARTIN'S TEST (test code = N/A ALLENS) BASIC METABOLIC [id number] 01:21:00 Test Item Value Reference Range Interpretation [...] = POCGLU) 120 MG/DL 70-110 H HEMOGLOBIN [id number] 01:21:00 Test Item Value Reference Range Interpretation Comments HEMOGLOBIN ABG (test code = HGB/ABG) 7.5 G/DL 11.0-15.0 L [id number] 01:21:00 Test Item Value Reference Range Interpretation Comments HEMATOCRIT (test code = HCT/ABG) 22 % 33.0-45.0 L POC LACTIC [id number] 01:21:00 Test Item Value Reference Range Interpretation Comments POC LACTIC ACID (test code = 0.7 mmol/l 0.9-1.7 L POCLAC) GLUCOSE [id number] 01:05:00 Test Item Value Reference Range Interpretation Comments GLUCOSE BEDSIDE (test 126 MG/DL 70-110 H [facility] med by certified code = GLUBED) 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[facility] GLUCOSE [id number] 00:10:00 Test Item Value Reference Range Interpretation Comments GLUCOSE BEDSIDE (test 120 MG/DL 70-110 H [facility] by certified code = GLUBED) 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[facility] GLUCOSE [id number] 00:10:00 Test Item Value Reference Range Interpretation Comments GLUCOSE BEDSIDE (test 43 MG/DL 70-110 L [facility] med by certified code = GLUBED) 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[facility] - XR CHEST 1 [id number] 00:00:00 [facility] 1945 Sex: F FAX:Jeffry Pennington MD [phone] [place]: St: ADM FAX: Abdiaziz Christiansen MD [phone] FAX: Solange Sawyer MD [phone] FAX: Colt Aguillon MD [phone] Name: SAÚL GILES [facility] : 1945 Age/S: 76/F [address] [place] [address] Blvd Unit #: [id number] Loc: G.[address] [place] [address] Phys: Solange Mohamud MD Acct: [id number] Dis Date: Status: ADM IN PHONE #: [phone] Exam Date: 12/29/2021 06 FAX #: [phone] Reason: POST-OP CV SURGERY EXAMS: CPT CODE: [id number] XR CHEST 1 V 52139 PROCEDUREINFORMATION: Exam: XR Chest Exam date and [...] signed by: Bill Kern M.D. 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[facility] BASIC METABOLIC [id number] 21:29:00 Test Item Value Reference Range Interpretation [...] = 9.7 mg/dL 8.0-10.5 N CA) GLUCOSE [id number] 21:20:00 Test Item Value Reference Range Interpretation Comments GLUCOSE BEDSIDE (test 117 MG/DL 70-110 H [facility] med by certified code = GLUBED) 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[facility] POC ARTERIAL BLOOD [id number] 21:09:00 Test Item Value Reference Range Interpretation Comments POC ARTERIAL BLOOD GAS PH (test 7.363 7.35-7.45 N code = POCPHA) POC ARTERIAL BLOOD GAS PCO2 (test 72.2 mmHg 35.0-45 HH code = GHUBDQ6C) POC TCO2 ARTERIAL (test code = 43.4 POCTCO2) POC ARTERIAL BLOOD GAS PO2 (test 77.1 mmHg 80-100.0 L code = BUOAF6P) POC HCO3 ARTERIAL (test code = 41.2 MMOL/L 22.0-26.0 HH DIAKMV5V) POC BASE EXCESS (test code = 15.7 MMOL/L -4.0-4.0 H POCBEA) POC O2 SATURATION (test code = 94.1 % 90-100 N POCO2S) ABG DELIVERY (test code = MAAME) Cannula ABG TEMPERATURE (test code = 98.1 F TEMPA) ABG SITE (test code = SITEA) Art Line BASIC METABOLIC [id number] 21:09:00 Test Item Value Reference Range Interpretation [...] = POCGLU) 104 MG/DL 70-110 N HEMOGLOBIN [id number] 21:09:00 Test Item Value Reference Range Interpretation Comments HEMOGLOBIN ABG (test code = HGB/ABG) 8.2 G/DL 11.0-15.0 L [id number] 21:09:00 Test Item Value Reference Range Interpretation Comments HEMATOCRIT (test code = HCT/ABG) 24 % 33.0-45.0 L POC LACTIC [id number] 21:09:00 Test Item Value Reference Range Interpretation Comments POC LACTIC ACID (test code = 0.8 mmol/l 0.9-1.7 L POCLAC) GLUCOSE [id number] 19:27:00 Test Item Value Reference Range Interpretation Comments GLUCOSE BEDSIDE (test 139 MG/DL 70-110 H [facility] med by certified code = GLUBED) 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[facility] GLUCOSE [id number] 19:21:00 Test Item Value Reference Range Interpretation Comments GLUCOSE BEDSIDE (test 106 MG/DL 70-110 N [facility] med by certified code = GLUBED) 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[facility] GLUCOSE [id number] 16:45:00 Test Item Value Reference Range Interpretation Comments GLUCOSE BEDSIDE (test 162 MG/DL 70-110 H Per[facility] med by certified code = GLUBED) 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[facility] GLUCOSE [id number] 16:42:00 Test Item Value Reference Range Interpretation Comments GLUCOSE BEDSIDE (test 225 MG/DL 70-110 H Perfor med by certified code = GLUBED) 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[facility] POC ARTERIAL BLOOD [id number] 16:39:00 Test Item Value Reference Range Interpretation Comments POC ARTERIAL BLOOD GAS PH (test 7.396 7.35-7.45 N code = POCPHA) POC ARTERIAL BLOOD GAS PCO2 (test 65.9 mmHg 35.0-45 HH code = YMZERZ4T) POC TCO2 ARTERIAL (test code = 42.7 POCTCO2) POC ARTERIAL BLOOD GAS PO2 (test 74.6 mmHg 80-100.0 L code = OFQDY9P) POC HCO3 ARTERIAL (test code = 40.6 MMOL/L 22.0-26.0 HH VEBCYT3Z) POC BASE EXCESS (test code = 15.7 MMOL/L -4.0-4.0 H POCBEA) POC O2 SATURATION (test code = 94.3 % 90-100 N POCO2S) ABG DELIVERY (test code = MAAME) Cannula ABG TEMPERATURE (test code = 98 F TEMPA) ABG SITE (test code = SITEA) Art Line BASIC METABOLIC [id number] 16:39:00 Test Item Value Reference Range Interpretation [...] = POCGLU) 131 MG/DL 70-110 H HEMOGLOBIN [id number] 16:39:00 Test Item Value Reference Range Interpretation Comments HEMOGLOBIN ABG (test code = HGB/ABG) 8.5 G/DL 11.0-15.0 L [id number] 16:39:00 Test Item Value Reference Range Interpretation Comments HEMATOCRIT (test code = HCT/ABG) 25 % 33.0-45.0 L POC LACTIC [id number] 16:39:00 Test Item Value Reference Range Interpretation Comments POC LACTIC ACID (test code = 0.7 mmol/l 0.9-1.7 L POCLAC) GLUCOSE [id number] 14:00:00 Test Item Value Reference Range Interpretation Comments GLUCOSE BEDSIDE (test 212 MG/DL 70-110 H Perfor med by certified code = GLUBED) 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[facility] GLUCOSE [id number] 13:59:00 Test Item Value Reference Range Interpretation Comments GLUCOSE BEDSIDE (test 227 MG/DL 70-110 H Perfor med by certified code = GLUBED) 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[facility] BASIC METABOLIC [id number] 12:35:00 Test Item Value Reference Range Interpretation [...] mg/dL 8.0-10.5 N CA) POC ARTERIAL BLOOD [id number] 11:40:00 Test Item Value Reference Range Interpretation Comments POC ARTERIAL BLOOD GAS PH (test 7.349 7.35-7.45 L code = POCPHA) POC ARTERIAL BLOOD GAS PCO2 72.2 mmHg 35.0-45 HH (test code = MFUHRI2F) POC TCO2 ARTERIAL (test code = 42.2 POCTCO2) POC ARTERIAL BLOOD GAS PO2 (test 95.9 mmHg 80-100.0 N code = ABDXQ2B) POC HCO3 ARTERIAL (test code = 39.9 MMOL/L 22.0-26.0 HH [id number]) POC BASE EXCESS (test code = 14.2 MMOL/L -4.0-4.0 H POCBEA) POC O2 SATURATION (test code = 96.7 % 90-100 N POCO2S) FIO2 (test code = FIO2A) 40 % PaO2/FiO2 (test code = GCM1QUE2) 239.75 mm/Hg ABG DELIVERY (test code = MAAME) CPAP ABG TEMPERATURE (test code = 98 F TEMPA) ABG SITE (test code = SITEA) Art Line MARTIN'S TEST (test code = N/A ALLENS) BASIC METABOLIC [id number] 11:40:00 Test Item Value Reference Range Interpretation [...] = POCGLU) 303 MG/DL 70-110 H HEMOGLOBIN [id number] 11:40:00 Test Item Value Reference Range Interpretation Comments HEMOGLOBIN ABG (test code = HGB/ABG) 8.3 G/DL 11.0-15.0 L [id number] 11:40:00 Test Item Value Reference Range Interpretation Comments HEMATOCRIT (test code = HCT/ABG) 24 % 33.0-45.0 L POC LACTIC [id number] 11:40:00 Test Item Value Reference Range Interpretation Comments POC LACTIC ACID (test code = 0.7 mmol/l 0.9-1.7 L POCLAC) GLUCOSE [id number] 10:54:00 Test Item Value Reference Range Interpretation Comments GLUCOSE BEDSIDE (test 289 MG/DL 70-110 H Perfor med by certified code = GLUBED) 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[facility] GLUCOSE [id number] 07:48:00 Test Item Value Reference Range Interpretation Comments GLUCOSE BEDSIDE (test 107 MG/DL 70-110 N Perfor med by certified code = GLUBED) 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[facility] BASIC METABOLIC [id number] 04:25:00 Test Item Value Reference Range Interpretation [...] code = 10.0 mg/dL 8.0-10.5 N CA) [id number] 04:25:00 Test Item Value Reference Range Interpretation Comments MAGNESIUM (test code = MAG) 2.19 mg/dL 1.80-2.40 N CBC W/AUTO [id number] 04:02:00 Test Item Value Reference Range Interpretation [...] code NO = MDIFF) POC ARTERIAL BLOOD [id number] 03:44:00 Test Item Value Reference Range Interpretation Comments POC ARTERIAL BLOOD GAS PH (test 7.408 7.35-7.45 N code = POCPHA) POC ARTERIAL BLOOD GAS PCO2 (test 63.1 mmHg 35.0-45 HH code = AVMKPF2G) POC TCO2 ARTERIAL (test code = 42.0 POCTCO2) POC ARTERIAL BLOOD GAS PO2 (test 58.6 mmHg 80-100.0 L code = YRKOI4J) POC HCO3 ARTERIAL (test code = 40.0 MMOL/L 22.0-26.0 HH [id number]) POC BASE EXCESS (test code = 15.2 MMOL/L -4.0-4.0 H POCBEA) POC O2 SATURATION (test code = 89.7 % 90-100 L POCO2S) ABG DELIVERY (test code = MAAME) Cannula ABG TEMPERATURE (test code = 97.7 F TEMPA) ABG SITE (test code = SITEA) Art Line BASIC METABOLIC [id number] 03:44:00 Test Item Value Reference Range Interpretation [...] = POCGLU) 102 MG/DL 70-110 N HEMOGLOBIN [id number] 03:44:00 Test Item Value Reference Range Interpretation Comments HEMOGLOBIN ABG (test code = HGB/ABG) 8.4 G/DL 11.0-15.0 L [id number] 03:44:00 Test Item Value Reference Range Interpretation Comments HEMATOCRIT (test code = HCT/ABG) 25 % 33.0-45.0 L POC LACTIC [id number] 03:44:00 Test Item Value Reference Range Interpretation Comments POC LACTIC ACID (test code = 0.5 mmol/l 0.9-1.7 L POCLAC) GLUCOSE [id number] 01:41:00 Test Item Value Reference Range Interpretation Comments GLUCOSE BEDSIDE (test 130 MG/DL 70-110 H Perfor med by certified code = GLUBED) 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[facility] - XR CHEST 1 [id number] 00:00:00 [facility] 1945 Sex: F FAX:Jeffry Pennington MD [phone] [place]: St: ADM FAX: Abdiaziz Christiansen MD [phone] FAX: Solange Sawyer MD [phone] FAX: Colt Aguillon MD [phone] Name: SAÚL GILES [facility] : 1945 Age/S: 76/F [address] [place] [address] Unit #: [id number] Loc: [address] [place] [address] Phys: Solange Mohamud MD Acct: [id number] Dis Date: Status: ADM IN PHONE #: [phone] Exam Date: 12/28/2021 0709 FAX #: [phone] Reason: POST-OP CV SURGERY EXAMS: CPT CODE: [id number] XR CHEST 1 V 73223 PROCEDURE INFORMATION: Exam: XR Chest Exam date [...] and signed by: Leonard Escobar M.D.CC: Jeffry More MD; Abdiaziz Fuchs MD; Solange Mohamud MD; Colt Vail MD Technologist: Xenia Bashir, RT(R); Shell Min RT(R) Trnscrd Date/Time/By: 12/28/2021 (08) : By: [email or web address] Orig Print D/T: S: 12/28/2021 (0836) PAGE 1 Signed ReportGLUCOSE [id number] 23:17:00 Test Item Value Reference Range Interpretation Comments GLUCOSE BEDSIDE (test 95 MG/DL 70-110 [facility] med by certified code = GLUBED) 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[facility] POC ARTERIAL BLOOD [id number] 23:14:00 Test Item Value Reference Range Interpretation Comments POC ARTERIAL BLOOD GAS PH (test 7.378 7.35-7.45 N code = POCPHA) POC ARTERIAL BLOOD GAS PCO2 (test 71.2 mmHg 35.0-45 HH code = JWEMTX7G) POC TCO2 ARTERIAL (test code = 44.1 POCTCO2) POC ARTERIAL BLOOD GAS PO2 (test 86.3 mmHg 80-100.0 N code = MSEWU9J) POC HCO3 ARTERIAL (test code = 41.9 MMOL/L 22.0-26.0 HH WZEOGX9X) POC BASE EXCESS (test code = 16.7 MMOL/L -4.0-4.0 H POCBEA) POC O2 SATURATION (test code = 95.7 % 90-100 N POCO2S) ABG DELIVERY (test code = MAAME) Cannula ABG TEMPERATURE (test code = 98.6 F TEMPA) ABG SITE (test code = SITEA) Art Line BASIC METABOLIC [id number] 23:14:00 Test Item Value Reference Range Interpretation [...] = POCGLU) 86 MG/DL 70-110 N HEMOGLOBIN [id number] 23:14:00 Test Item Value Reference Range Interpretation Comments HEMOGLOBIN ABG (test code = HGB/ABG) 8.2 G/DL 11.0-15.0 L [id number] 23:14:00 Test Item Value Reference Range Interpretation Comments HEMATOCRIT (test code = HCT/ABG) 24 % 33.0-45.0 L POC LACTIC [id number] 23:14:00 Test Item Value Reference Range Interpretation Comments POC LACTIC ACID (test code = 0.7 mmol/l 0.9-1.7 L POCLAC) GLUCOSE [id number] 19:13:00 Test Item Value Reference Range Interpretation Comments GLUCOSE BEDSIDE (test 155 MG/DL 70-110 H Perfor med by certified code = GLUBED) 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] code = 9.6 mg/dL 8.0-10.5 N CA) [id number] 16:33:00 Test Item Value Reference Range Interpretation Comments MAGNESIUM (test code = MAG) 2.30 mg/dL 1.80-2.40 N GLUCOSE [id number] 15:13:00 Test Item Value Reference Range Interpretation Comments GLUCOSE BEDSIDE (test 198 MG/DL 70-110 H Perfor med by certified code = GLUBED) 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[facility] GLUCOSE [id number] 15:13:00 Test Item Value Reference Range Interpretation Comments GLUCOSE BEDSIDE (test 159 MG/DL 70-110 H Perfor med by certified code = GLUBED) 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[facility] BASIC METABOLIC [id number] 15:01:00 Test Item Value Reference Range Interpretation [...] = 9.8 mg/dL 8.0-10.5 N CA) GLUCOSE [id number] 13:01:00 Test Item Value Reference Range Interpretation Comments GLUCOSE BEDSIDE (test 166 MG/DL 70-110 H [facility] by certified code = GLUBED) 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[facility] GLUCOSE [id number] 12:00:00 Test Item Value Reference Range Interpretation Comments GLUCOSE BEDSIDE (test 149 MG/DL 70-110 H [facility] by certified code = GLUBED) 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[facility] BASIC METABOLIC [id number] 11:08:00 Test Item Value Reference Range Interpretation [...] = 10.0 mg/dL 8.0-10.5 N CA) GLUCOSE [id number] 10:29:00 Test Item Value Reference Range Interpretation Comments GLUCOSE BEDSIDE (test 183 MG/DL 70-110 H [facility] med by certified code = GLUBED) 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[facility] POC ARTERIAL BLOOD [id number] 10:20:00 Test Item Value Reference Range Interpretation Comments POC ARTERIAL BLOOD GAS PH (test 7.430 7.35-7.45 N code = POCPHA) POC ARTERIAL BLOOD GAS PCO2 (test 63.2 mmHg 35.0-45 HH code = SJJIGT1Q) POC TCO2 ARTERIAL (test code = 44.1 POCTCO2) POC ARTERIAL BLOOD GAS PO2 (test 73.3 mmHg 80-100.0 L code = HVJIO1I) POC HCO3 ARTERIAL (test code = 42.1 MMOL/L 22.0-26.0 HH JCVFFB4G) POC BASE EXCESS (test code = 17.7 MMOL/L -4.0-4.0 H POCBEA) POC O2 SATURATION (test code = 94.5 % 90-100 N POCO2S) ABG DELIVERY (test code = MAAME) Cannula ABG TEMPERATURE (test code = 98 F TEMPA) ABG SITE (test code = SITEA) Art Line MARTIN'S TEST (test code = ALLENS) N/A BASIC METABOLIC [id number] 10:20:00 Test Item Value Reference Range Interpretation [...] = POCGLU) 184 MG/DL 70-110 H HEMOGLOBIN [id number] 10:20:00 Test Item Value Reference Range Interpretation Comments HEMOGLOBIN ABG (test code = HGB/ABG) 8.5 G/DL 11.0-15.0 L [id number] 10:20:00 Test Item Value Reference Range Interpretation Comments HEMATOCRIT (test code = HCT/ABG) 25 % 33.0-45.0 L POC LACTIC [id number] 10:20:00 Test Item Value Reference Range Interpretation Comments POC LACTIC ACID (test code = 1.2 mmol/l 0.9-1.7 N POCLAC) GLUCOSE [id number] 09:11:00 Test Item Value Reference Range Interpretation Comments GLUCOSE BEDSIDE (test 235 MG/DL 70-110 H Perfor med by certified code = GLUBED) 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[facility] GLUCOSE [id number] 08:15:00 Test Item Value Reference Range Interpretation Comments GLUCOSE BEDSIDE (test 259 MG/DL 70-110 H Perfor med by certified code = GLUBED) 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[facility] GLUCOSE [id number] 05:53:00 Test Item Value Reference Range Interpretation Comments GLUCOSE BEDSIDE (test 203 MG/DL 70-110 H Perfor med by certified code = GLUBED) 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[facility] CBC W/AUTO [id number] 04:38:00 Test Item Value Reference Range Interpretation [...] (test code NO = MDIFF) BASIC METABOLIC [id number] 04:19:00 Test Item Value Reference Range Interpretation [...] code = 9.9 mg/dL 8.0-10.5 N CA) [id number] 04:19:00 Test Item Value Reference Range Interpretation Comments MAGNESIUM (test code = MAG) 2.20 mg/dL 1.80-2.40 N POC ARTERIAL BLOOD [id number] 02:45:00 Test Item Value Reference Range Interpretation Comments POC ARTERIAL BLOOD GAS PH (test 7.388 7.35-7.45 N code = POCPHA) POC ARTERIAL BLOOD GAS PCO2 70.2 mmHg 35.0-45 HH (test code = [id number]) POC TCO2 ARTERIAL (test code = 44.5 POCTCO2) POC ARTERIAL BLOOD GAS PO2 (test 85.6 mmHg 80-100.0 N code = MBXNM1H) POC HCO3 ARTERIAL (test code = 42.4 MMOL/L 22.0-26.0 HH AOIXAD1M) POC BASE EXCESS (test code = 17.4 MMOL/L -4.0-4.0 H POCBEA) POC O2 SATURATION (test code = 95.8 % 90-100 N POCO2S) FIO2 (test code = FIO2A) 50 % PaO2/FiO2 (test code = [id number]) 171.20 mm/Hg ABG DELIVERY (test code = MAAME) BiPAP ABG PEEP (test code = PEEPA) 5 cmH2O ABG TEMPERATURE (test code = 98.4 F TEMPA) ABG SITE (test code = SITEA) Art Line BASIC METABOLIC [id number] 02:45:00 Test Item Value Reference Range Interpretation [...] = POCGLU) 95 MG/DL 70-110 N HEMOGLOBIN [id number] 02:45:00 Test Item Value Reference Range Interpretation Comments HEMOGLOBIN ABG (test code = HGB/ABG) 8.2 G/DL 11.0-15.0 L [id number] 02:45:00 Test Item Value Reference Range Interpretation Comments HEMATOCRIT (test code = HCT/ABG) 24 % 33.0-45.0 L POC LACTIC [id number] 02:45:00 Test Item Value Reference Range Interpretation Comments POC LACTIC ACID (test code = 0.6 mmol/l 0.9-1.7 L POCLAC) GLUCOSE [id number] 02:04:00 Test Item Value Reference Range Interpretation Comments GLUCOSE BEDSIDE (test 86 MG/DL 70-110 N Perfor med by certified code = GLUBED) 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[facility] GLUCOSE [id number] 00:36:00 Test Item Value Reference Range Interpretation Comments GLUCOSE BEDSIDE (test 72 MG/DL 70-110 N Perfor med by certified code = GLUBED) 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[facility] - XR CHEST 1 [id number] 00:00:00 [facility] 1945 Sex: F FAX:Jeffry Pennington MD [phone] [place]: St: ADM FAX: Abdiaziz Christiansen MD [phone] FAX: Solange Sawyer MD [phone] FAX: Colt Aguillon MD [phone] Name: SAÚL GILES [facility] [place] : 1945 Age/S: 76/F [address] [place] [address] Unit #: [id number] Loc: G.2205 [place] [address] Phys: Solange Mohamud MD Acct: [id number] Dis Date: Status: ADM IN PHONE #: [phone] Exam Date: 12/27/2021 0732FAX #: [phone] Reason: S/P CABG EXAMS: CPT CODE: [id number] XR CHEST 1 V [id number] PROCEDURE INFORMATION: Exam: XR Chest Exam date [...] signed by: Jonathan Calles M.D. 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[facility] GLUCOSE [id number] 20:05:00 Test Item Value Reference Range Interpretation Comments GLUCOSE BEDSIDE (test 232 MG/DL 70-110 H Perfor med by certified code = GLUBED) 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[facility] BASIC METABOLIC [id number] 18:16:00 Test Item Value Reference Range Interpretation [...] code = 9.8 mg/dL 8.0-10.5 N CA) [id number] 18:16:00 Test Item Value Reference Range Interpretation Comments PHOSPHOROUS (test code = PHOS) 3.0 MG/DL 2.5-4.9 N [id number] 18:16:00 Test Item Value Reference Range Interpretation Comments MAGNESIUM (test code = MAG) 2.30 mg/dL 1.80-2.40 N GLUCOSE [id number] 17:47:00 Test Item Value Reference Range Interpretation Comments GLUCOSE BEDSIDE (test 283 MG/DL 70-110 H Perfor med by certified code = GLUBED) 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[facility] BASIC METABOLIC [id number] 13:10:00 Test Item Value Reference Range Interpretation [...] code = 10.1 mg/dL 8.0-10.5 N CA) [id number] 13:10:00 Test Item Value Reference Range Interpretation Comments MAGNESIUM (test code = MAG) 2.43 mg/dL 1.80-2.40 H CALCIUM [id number] 13:10:00 Test Item Value Reference Range Interpretation Comments CALCIUM IONIZED (test code = TYREE) 1.22 MMOL/L 1.09-1.30 N POC ARTERIAL BLOOD [id number] 12:53:00 Test Item Value Reference Range Interpretation Comments POC ARTERIAL BLOOD GAS PH (test 7.356 7.35-7.45 N code = POCPHA) POC ARTERIAL BLOOD GAS PCO2 (test 69.2 mmHg 35.0-45 HH code = TAJMRH2W) POC TCO2 ARTERIAL (test code = 40.9 POCTCO2) POC ARTERIAL BLOOD GAS PO2 (test 128.4 mmHg 80-100.0 H code = DBTPM0C) POC HCO3 ARTERIAL (test code = 38.8 MMOL/L 22.0-26.0 HH EIOONC3R) POC BASE EXCESS (test code = 13.2 MMOL/L -4.0-4.0 H POCBEA) POC O2 SATURATION (test code = 98.6 % 90-100 N POCO2S) ABG DELIVERY (test code = MAAME) HFNC ABG SITE (test code = SITEA) Art Line BASIC METABOLIC [id number] 12:53:00 Test Item Value Reference Range Interpretation [...] = POCGLU) 203 MG/DL 70-110 H HEMOGLOBIN [id number] 12:53:00 Test Item Value Reference Range Interpretation Comments HEMOGLOBIN ABG (test code = HGB/ABG) 8.6 G/DL 11.0-15.0 L [id number] 12:53:00 Test Item Value Reference Range Interpretation Comments HEMATOCRIT (test code = HCT/ABG) 25 % 33.0-45.0 L POC LACTIC [id number] 12:53:00 Test Item Value Reference Range Interpretation Comments POC LACTIC ACID (test code = 0.7 mmol/l 0.9-1.7 L POCLAC) POC ARTERIAL BLOOD [id number] 12:05:00 Test Item Value Reference Range Interpretation Comments POC ARTERIAL BLOOD GAS PH (test 7.364 7.35-7.45 N code = POCPHA) POC ARTERIAL BLOOD GAS PCO2 68.3 mmHg 35.0-45 HH (test code = MVZGAF7F) POC TCO2 ARTERIAL (test code = 41.1 POCTCO2) POC ARTERIAL BLOOD GAS PO2 (test 100.9 mmHg 80-100.0 H code = NEDEN2P) POC HCO3 ARTERIAL (test code = 39.0 MMOL/L 22.0-26.0 HH RIDKIP9V) POC BASE EXCESS (test code = 13.6 MMOL/L -4.0-4.0 H POCBEA) POC O2 SATURATION (test code = 97.2 % 90-100 N POCO2S) FIO2 (test code = FIO2A) 50 % PaO2/FiO2 (test code = [id number]) 201.80 mm/Hg ABG DELIVERY (test code = MAAME) BiPAP ABG SITE (test code = SITEA) Art Line BASIC METABOLIC [id number] 12:05:00 Test Item Value Reference Range Interpretation [...] = POCGLU) 194 MG/DL 70-110 H HEMOGLOBIN [id number] 12:05:00 Test Item Value Reference Range Interpretation Comments HEMOGLOBIN ABG (test code = HGB/ABG) 7.9 G/DL 11.0-15.0 L [id number] 12:05:00 Test Item Value Reference Range Interpretation Comments HEMATOCRIT (test code = HCT/ABG) 23 % 33.0-45.0 L POC LACTIC [id number] 12:05:00 Test Item Value Reference Range Interpretation Comments POC LACTIC ACID (test code = 0.6 mmol/l 0.9-1.7 L POCLAC) GLUCOSE [id number] 09:39:00 Test Item Value Reference Range Interpretation Comments GLUCOSE BEDSIDE (test 185 MG/DL 70-110 H Perfor med by certified code = GLUBED) 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[facility] GLUCOSE [id number] 05:54:00 Test Item Value Reference Range Interpretation Comments GLUCOSE BEDSIDE (test 168 MG/DL 70-110 H Perfor med by certified code = GLUBED) 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[facility] BASIC METABOLIC [id number] 04:24:00 Test Item Value Reference Range Interpretation [...] code = 10.4 mg/dL 8.0-10.5 N CA) [id number] 04:24:00 Test Item Value Reference Range Interpretation Comments PHOSPHOROUS (test code = PHOS) 2.8 MG/DL 2.5-4.9 N [id number] 04:24:00 Test Item Value Reference Range Interpretation Comments MAGNESIUM (test code = MAG) 2.34 mg/dL 1.80-2.40 N CBC W/AUTO [id number] 04:03:00 Test Item Value Reference Range Interpretation [...] code NO = MDIFF) POC ARTERIAL BLOOD [id number] 03:32:00 Test Item Value Reference Range Interpretation Comments POC ARTERIAL BLOOD GAS PH (test 7.421 7.35-7.45 N code = POCPHA) POC ARTERIAL BLOOD GAS PCO2 63.7 mmHg 35.0-45 HH (test code = VVYCMI5N) POC TCO2 ARTERIAL (test code = 43.5 POCTCO2) POC ARTERIAL BLOOD GAS PO2 (test 89.6 mmHg 80-100.0 N code = YLPNN1N) POC HCO3 ARTERIAL (test code = 41.5 MMOL/L 22.0-26.0 HH QQMFPL6M) POC BASE EXCESS (test code = 17.0 MMOL/L -4.0-4.0 H POCBEA) POC O2 SATURATION (test code = 96.8 % 90-100 N POCO2S) FIO2 (test code = FIO2A) 50 % PaO2/FiO2 (test code = NES1ZXT8) 179.20 mm/Hg ABG DELIVERY (test code = MAAME) BiPAP ABG VENT RESP RATE (test code = 26 /MIN RRA) ABG TEMPERATURE (test code = 98.1 F TEMPA) ABG SITE (test code = SITEA) L Radial MARTIN'S TEST (test code = N/A ALLENS) BASIC METABOLIC [id number] 03:32:00 Test Item Value Reference Range Interpretation [...] = POCGLU) 189 MG/DL 70-110 H HEMOGLOBIN [id number] 03:32:00 Test Item Value Reference Range Interpretation Comments HEMOGLOBIN ABG (test code = HGB/ABG) 8.6 G/DL 11.0-15.0 L [id number] 03:32:00 Test Item Value Reference Range Interpretation Comments HEMATOCRIT (test code = HCT/ABG) 25 % 33.0-45.0 L POC LACTIC [id number] 03:32:00 Test Item Value Reference Range Interpretation Comments POC LACTIC ACID (test code = 0.6 mmol/l 0.9-1.7 L POCLAC) GLUCOSE [id number] 00:03:00 Test Item Value Reference Range Interpretation Comments GLUCOSE BEDSIDE (test 181 MG/DL 70-110 H Perfor med by certified code = GLUBED) 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[facility] - XR CHEST 1 [id number] 00:00:00 [facility] 1945 Sex: F FAX:Jeffry Pennington MD [phone] [place]: GC St: ADM FAX: Abdiaziz Christiansen MD [phone] FAX: Solange Sawyer MD [phone] FAX: Colt Aguillon MD [phone] Name: ASÚL GILES [facility] : 1945 Age/S: 76/F [address] [place] [address] Unit #: [id number] Loc: [address] [address] Phys: Solange Mohamud MD Acct: [id number] Dis Date: Status: ADM IN PHONE #: [phone] Exam Date: 12/26/2021611 FAX #: [phone] Reason: DAILY EVAL POST OP MVR EXAMS: CPT CODE: [id number] XR CHEST 1 V 66019 PROCEDURE INFORMATION: Exam: XR Chest Exam date [...] signed by: Bill Kern M.D. CC: Jeffry More MD; Abdiaziz Fuchs MD; Solange Mohamud MD; Colt Vail MD Technologist: RT Joe(R) Trnscrd Date/Time/By: 12/26/2021 (0643) : By: [email or web address] Orig Print D/T: S: 12/26/2021 (0659) PAGE 1 Signed ReportBASIC METABOLIC [id number] 20:47:00 Test Item Value Reference Range Interpretation [...] code = 10.2 mg/dL 8.0-10.5 N CA) [id number] 20:47:00 Test Item Value Reference Range Interpretation Comments MAGNESIUM (test code = MAG) 2.16 mg/dL 1.80-2.40 N POC ARTERIAL BLOOD [id number] 20:19:00 Test Item Value Reference Range Interpretation Comments POC ARTERIAL BLOOD GAS PH (test 7.378 7.35-7.45 N code = POCPHA) POC ARTERIAL BLOOD GAS PCO2 (test 64.8 mmHg 35.0-45 HH code = TXBQNL2I) POC TCO2 ARTERIAL (test code = 40.3 POCTCO2) POC ARTERIAL BLOOD GAS PO2 (test 86.4 mmHg 80-100.0 N code = HYBFW9Y) POC HCO3 ARTERIAL (test code = 38.3 MMOL/L 22.0-26.0 HH FXFODQ5K) POC BASE EXCESS (test code = 13.1 MMOL/L -4.0-4.0 H POCBEA) POC O2 SATURATION (test code = 96.1 % 90-100 N POCO2S) ABG DELIVERY (test code = MAAME) HFNC ABG TEMPERATURE (test code = 97.9 F TEMPA) ABG SITE (test code = SITEA) Art Line BASIC METABOLIC [id number] 20:19:00 Test Item Value Reference Range Interpretation [...] = POCGLU) 221 MG/DL 70-110 H HEMOGLOBIN [id number] 20:19:00 Test Item Value Reference Range Interpretation Comments HEMOGLOBIN ABG (test code = HGB/ABG) 8.2 G/DL 11.0-15.0 L [id number] 20:19:00 Test Item Value Reference Range Interpretation Comments HEMATOCRIT (test code = HCT/ABG) 24 % 33.0-45.0 L POC LACTIC [id number] 20:19:00 Test Item Value Reference Range Interpretation Comments POC LACTIC ACID (test code = 0.7 mmol/l 0.9-1.7 L POCLAC) GLUCOSE [id number] 18:32:00 Test Item Value Reference Range Interpretation Comments GLUCOSE BEDSIDE (test 235 MG/DL 70-110 H Perfor med by certified code = GLUBED) 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[facility] BASIC METABOLIC [id number] 16:07:00 Test Item Value Reference Range Interpretation [...] code = 10.6 mg/dL 8.0-10.5 H CA) [id number] 16:07:00 Test Item Value Reference Range Interpretation Comments PHOSPHOROUS (test code = PHOS) 2.9 MG/DL 2.5-4.9 N [id number] 16:07:00 Test Item Value Reference Range Interpretation Comments MAGNESIUM (test code = MAG) 2.26 mg/dL 1.80-2.40 N GLUCOSE [id number] 15:25:00 Test Item Value Reference Range Interpretation Comments GLUCOSE BEDSIDE (test 149 MG/DL 70-110 H Perfor med by certified code = GLUBED) 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[facility] POC ARTERIAL BLOOD [id number] 15:12:00 Test Item Value Reference Range Interpretation Comments POC ARTERIAL BLOOD GAS PH (test 7.364 7.35-7.45 N code = POCPHA) POC ARTERIAL BLOOD GAS PCO2 (test 72.3 mmHg 35.0-45 HH code = [id number]) POC TCO2 ARTERIAL (test code = 43.4 POCTCO2) POC ARTERIAL BLOOD GAS PO2 (test 82.1 mmHg 80-100.0 N code = HIKSY3S) POC HCO3 ARTERIAL (test code = 41.2 MMOL/L 22.0-26.0 HH [id number]) POC BASE EXCESS (test code = 15.8 MMOL/L -4.0-4.0 H POCBEA) POC O2 SATURATION (test code = 94.9 % 90-100 N POCO2S) ABG DELIVERY (test code = MAAME) HFJV ABG SITE (test code = SITEA) Art Line BASIC METABOLIC [id number] 15:12:00 Test Item Value Reference Range Interpretation [...] = POCGLU) 161 MG/DL 70-110 H HEMOGLOBIN [id number] 15:12:00 Test Item Value Reference Range Interpretation Comments HEMOGLOBIN ABG (test code = HGB/ABG) 8.5 G/DL 11.0-15.0 L [id number] 15:12:00 Test Item Value Reference Range Interpretation Comments HEMATOCRIT (test code = HCT/ABG) 25 % 33.0-45.0 L POC LACTIC [id number] 15:12:00 Test Item Value Reference Range Interpretation Comments POC LACTIC ACID (test code = 0.7 mmol/l 0.9-1.7 L POCLAC) BASIC METABOLIC [id number] 12:25:00 Test Item Value Reference Range Interpretation [...] code = 10.3 mg/dL 8.0-10.5 N CA) [id number] 12:25:00 Test Item Value Reference Range Interpretation Comments PHOSPHOROUS (test code = PHOS) 2.8 MG/DL 2.5-4.9 [id number] 12:25:00 Test Item Value Reference Range Interpretation Comments MAGNESIUM (test code = MAG) 2.29 mg/dL 1.80-2.40 N POC ARTERIAL BLOOD [id number] 11:53:00 Test Item Value Reference Range Interpretation Comments POC ARTERIAL BLOOD GAS PH (test 7.378 7.35-7.45 N code = POCPHA) POC ARTERIAL BLOOD GAS PCO2 67.2 mmHg 35.0-45 HH (test code = [id number]) POC TCO2 ARTERIAL (test code = 41.6 POCTCO2) POC ARTERIAL BLOOD GAS PO2 (test 93.9 mmHg 80-100.0 N code = CTNOG8P) POC HCO3 ARTERIAL (test code = 39.6 MMOL/L 22.0-26.0 HH JEWSBR8I) POC BASE EXCESS (test code = 14.4 MMOL/L -4.0-4.0 H POCBEA) POC O2 SATURATION (test code = 96.7 % 90-100 N POCO2S) FIO2 (test code = FIO2A) 45 % PaO2/FiO2 (test code = [id number]) 208.66 mm/Hg ABG DELIVERY (test code = MAAME) BiPAP ABG SITE (test code = SITEA) Art Line BASIC METABOLIC [id number] 11:53:00 Test Item Value Reference Range Interpretation [...] = POCGLU) 147 MG/DL 70-110 H HEMOGLOBIN [id number] 11:53:00 Test Item Value Reference Range Interpretation Comments HEMOGLOBIN ABG (test code = HGB/ABG) 8.2 G/DL 11.0-15.0 L [id number] 11:53:00 Test Item Value Reference Range Interpretation Comments HEMATOCRIT (test code = HCT/ABG) 24 % 33.0-45.0 L POC LACTIC [id number] 11:53:00 Test Item Value Reference Range Interpretation Comments POC LACTIC ACID (test code = 0.6 mmol/l 0.9-1.7 L POCLAC) POC ARTERIAL BLOOD [id number] 10:55:00 Test Item Value Reference Range Interpretation Comments POC ARTERIAL BLOOD GAS PH (test 7.362 7.35-7.45 N code = POCPHA) POC ARTERIAL BLOOD GAS PCO2 65.6 mmHg 35.0-45 HH (test code = OSAASA7A) POC TCO2 ARTERIAL (test code = 39.2 POCTCO2) POC ARTERIAL BLOOD GAS PO2 (test 93.1 mmHg 80-100.0 N code = JSUZV6H) POC HCO3 ARTERIAL (test code = 37.2 MMOL/L 22.0-26.0 HH LQUCZO1R) POC BASE EXCESS (test code = 11.8 MMOL/L -4.0-4.0 H POCBEA) POC O2 SATURATION (test code = 96.5 % 90-100 N POCO2S) FIO2 (test code = FIO2A) 45 % PaO2/FiO2 (test code = NJR9FAU7) 206.88 mm/Hg ABG DELIVERY (test code = MAAME) BiPAP ABG SITE (test code = SITEA) Art Line BASIC METABOLIC [id number] 10:55:00 Test Item Value Reference Range Interpretation [...] = POCGLU) 162 MG/DL 70-110 H HEMOGLOBIN [id number] 10:55:00 Test Item Value Reference Range Interpretation Comments HEMOGLOBIN ABG (test code = HGB/ABG) 8.2 G/DL 11.0-15.0 L [id number] 10:55:00 Test Item Value Reference Range Interpretation Comments HEMATOCRIT (test code = HCT/ABG) 24 % 33.0-45.0 L POC LACTIC [id number] 10:55:00 Test Item Value Reference Range Interpretation Comments POC LACTIC ACID (test code = 0.6 mmol/l 0.9-1.7 L POCLAC) POC ARTERIAL BLOOD [id number] 10:06:00 Test Item Value Reference Range Interpretation Comments POC ARTERIAL BLOOD GAS PH (test 7.348 7.35-7.45 L code = POCPHA) POC ARTERIAL BLOOD GAS PCO2 71.0 mmHg 35.0-45 HH (test code = RLJNQU2J) POC TCO2 ARTERIAL (test code = 41.2 POCTCO2) POC ARTERIAL BLOOD GAS PO2 (test 92.3 mmHg 80-100.0 N code = UPROB8K) POC HCO3 ARTERIAL (test code = 39.0 MMOL/L 22.0-26.0 HH TJTFVD0W) POC BASE EXCESS (test code = 13.4 MMOL/L -4.0-4.0 H POCBEA) POC O2 SATURATION (test code = 96.2 % 90-100 N POCO2S) FIO2 (test code = FIO2A) 75 % PaO2/FiO2 (test code = HAV8FLC1) 123.06 mm/Hg ABG DELIVERY (test code = MAAME) HFNC ABG SITE (test code = SITEA) Art Line BASIC METABOLIC [id number] 10:06:00 Test Item Value Reference Range Interpretation [...] = POCGLU) 192 MG/DL 70-110 H HEMOGLOBIN [id number] 10:06:00 Test Item Value Reference Range Interpretation Comments HEMOGLOBIN ABG (test code = HGB/ABG) 9.0 G/DL 11.0-15.0 L [id number] 10:06:00 Test Item Value Reference Range Interpretation Comments HEMATOCRIT (test code = HCT/ABG) 26 % 33.0-45.0 L POC LACTIC [id number] 10:06:00 Test Item Value Reference Range Interpretation Comments POC LACTIC ACID (test code = 0.7 mmol/l 0.9-1.7 L POCLAC) GLUCOSE [id number] 07:57:00 Test Item Value Reference Range Interpretation Comments GLUCOSE BEDSIDE (test 229 MG/DL 70-110 H [facility] med by certified code = GLUBED) 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[facility] COMPREHENSIVE METABOLIC [id number] 04:18:00 Test Item Value Reference Range Interpretation [...] 20-125 N TOTAL (test code = ALKP) [id number] 04:18:00 Test Item Value Reference Range Interpretation Comments PHOSPHOROUS (test code = PHOS) 1.0 MG/DL 2.5-4.9 L [id number] 04:18:00 Test Item Value Reference Range Interpretation Comments MAGNESIUM (test code = MAG) 2.25 mg/dL 1.80-2.40 N CBC W/AUTO [id number] 04:04:00 Test Item Value Reference Range Interpretation [...] code NO = MDIFF) POC ARTERIAL BLOOD [id number] 03:55:00 Test Item Value Reference Range Interpretation Comments POC ARTERIAL BLOOD GAS PH (test 7.393 7.35-7.45 N code = POCPHA) POC ARTERIAL BLOOD GAS PCO2 (test 67.7 mmHg 35.0-45 HH code = DNCHXV1L) POC TCO2 ARTERIAL (test code = 43.5 POCTCO2) POC ARTERIAL BLOOD GAS PO2 (test 73.0 mmHg 80-100.0 L code = CRQYK8I) POC HCO3 ARTERIAL (test code = 41.4 MMOL/L 22.0-26.0 HH DHILKF1B) POC BASE EXCESS (test code = 16.4 MMOL/L -4.0-4.0 H POCBEA) POC O2 SATURATION (test code = 93.8 % 90-100 N POCO2S) FIO2 (test code = FIO2A) 75 % PaO2/FiO2 (test code = QWG0VRR4) 97.33 mm/Hg ABG DELIVERY (test code = MAAME) HFNC ABG TEMPERATURE (test code = 98 F TEMPA) ABG SITE (test code = SITEA) Art Line MARTIN'S TEST (test code = ALLENS) N/A BASIC METABOLIC [id number] 03:55:00 Test Item Value Reference Range Interpretation [...] = POCGLU) 236 MG/DL 70-110 H HEMOGLOBIN [id number] 03:55:00 Test Item Value Reference Range Interpretation Comments HEMOGLOBIN ABG (test code = HGB/ABG) 8.5 G/DL 11.0-15.0 L [id number] 03:55:00 Test Item Value Reference Range Interpretation Comments HEMATOCRIT (test code = HCT/ABG) 25 % 33.0-45.0 L POC LACTIC [id number] 03:55:00 Test Item Value Reference Range Interpretation Comments POC LACTIC ACID (test code = 0.6 mmol/l 0.9-1.7 L POCLAC) GLUCOSE [id number] 02:46:00 Test Item Value Reference Range Interpretation Comments GLUCOSE BEDSIDE (test 209 MG/DL 70-110 H [facility] med by certified code = GLUBED) 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[facility] GLUCOSE [id number] 00:20:00 Test Item Value Reference Range Interpretation Comments GLUCOSE BEDSIDE (test 127 MG/DL 70-110 H [facility] med by certified code = GLUBED) 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[facility] - XR CHEST 1 [id number] 00:00:00 [facility] 1945 Sex: F FAX:Jeffry Pennington MD [phone] [place]: St: ADM FAX: Abdiaziz Christiansen MD [phone] FAX: René Blancas [phone] FAX: Colt Aguillon MD [phone] Name: SAÚL GILSE [facility] : 1945 Age/S: 76/F [address] [place] [address] Unit #: [id number] Loc: G.2205 [place] [address] Phys: René Romero MD Acct: [id number] Dis Date: Status: ADM IN PHONE #: [phone] Exam Date: FAX #: [phone] Reason: Cardiac Surgery Post Op EXAMS: CPT CODE: [id number] XR CHEST 1 V 08763 PROCEDURE INFORMATION: Exam: XR Chest Exam date [...] signed by: Hardik Montanez M.D. 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[facility] BASIC METABOLIC [id number] 21:02:00 Test Item Value Reference Range Interpretation [...] mg/dL 8.0-10.5 N CA) POC ARTERIAL BLOOD [id number] 20:05:00 Test Item Value Reference Range Interpretation Comments POC ARTERIAL BLOOD GAS PH (test 7.358 7.35-7.45 N code = POCPHA) POC ARTERIAL BLOOD GAS PCO2 61.0 mmHg 35.0-45 HH (test code = CPIHEM2S) POC TCO2 ARTERIAL (test code = 36.3 POCTCO2) POC ARTERIAL BLOOD GAS PO2 (test 89.1 mmHg 80-100.0 N code = SUCSX4F) POC HCO3 ARTERIAL (test code = 34.4 MMOL/L 22.0-26.0 HH LMAUEU1I) POC BASE EXCESS (test code = 8.9 MMOL/L -4.0-4.0 H POCBEA) POC O2 SATURATION (test code = 96.2 % 90-100 N POCO2S) FIO2 (test code = FIO2A) 50 % PaO2/FiO2 (test code = FKE8GHM4) 178.20 mm/Hg ABG DELIVERY (test code = [...] (test code = Positive ALLENS) BASIC METABOLIC [id number] 20:05:00 Test Item Value Reference Range Interpretation [...] = POCGLU) 110 MG/DL 70-110 N HEMOGLOBIN [id number] 20:05:00 Test Item Value Reference Range Interpretation Comments HEMOGLOBIN ABG (test code = HGB/ABG) 7.2 G/DL 11.0-15.0 L [id number] 20:05:00 Test Item Value Reference Range Interpretation Comments HEMATOCRIT (test code = HCT/ABG) 21 % 33.0-45.0 L POC LACTIC [id number] 20:05:00 Test Item Value Reference Range Interpretation Comments POC LACTIC ACID (test code = 0.6 mmol/l 0.9-1.7 L POCLAC) GLUCOSE [id number] 18:28:00 Test Item Value Reference Range Interpretation Comments GLUCOSE BEDSIDE (test 139 MG/DL 70-110 H Per[facility] med by certified code = GLUBED) 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[facility] POC ARTERIAL BLOOD [id number] 18:12:00 Test Item Value Reference Range Interpretation Comments POC ARTERIAL BLOOD GAS PH (test 7.381 7.35-7.45 N code = POCPHA) POC ARTERIAL BLOOD GAS PCO2 64.5 mmHg 35.0-45 HH (test code = MWEZHL6L) POC TCO2 ARTERIAL (test code = 40.3 POCTCO2) POC ARTERIAL BLOOD GAS PO2 (test 81.9 mmHg 80-100.0 N code = IQUDY9V) POC HCO3 ARTERIAL (test code = 38.3 MMOL/L 22.0-26.0 HH EIEMHF5E) POC BASE EXCESS (test code = 13.1 MMOL/L -4.0-4.0 H POCBEA) POC O2 SATURATION (test code = 95.5 % 90-100 N POCO2S) FIO2 (test code = FIO2A) 50 % PaO2/FiO2 (test code = FTK0DOH9) 163.80 mm/Hg ABG DELIVERY (test code = MAAME) BiPAP ABG VENT RESP RATE (test code = 18 /MIN RRA) ABG PEEP (test code = PEEPA) 10 cmH2O ABG TEMPERATURE (test code = 97.9 F TEMPA) ABG SITE (test code = SITEA) Art Line MARTIN'S TEST (test code = N/A ALLENS) BASIC METABOLIC [id number] 18:12:00 Test Item Value Reference Range Interpretation [...] = POCGLU) 150 MG/DL 70-110 H HEMOGLOBIN [id number] 18:12:00 Test Item Value Reference Range Interpretation Comments HEMOGLOBIN ABG (test code = HGB/ABG) 8.6 G/DL 11.0-15.0 L [id number] 18:12:00 Test Item Value Reference Range Interpretation Comments HEMATOCRIT (test code = HCT/ABG) 25 % 33.0-45.0 L POC LACTIC [id number] 18:12:00 Test Item Value Reference Range Interpretation Comments POC LACTIC ACID (test code = 0.7 mmol/l 0.9-1.7 L POCLAC) GLUCOSE [id number] 17:05:00 Test Item Value Reference Range Interpretation Comments GLUCOSE BEDSIDE (test 170 MG/DL 70-110 H Per[facility] med by certified code = GLUBED) 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[facility] BASIC METABOLIC [id number] 14:48:00 Test Item Value Reference Range Interpretation [...] code = 10.4 mg/dL 8.0-10.5 N CA) [id number] 14:48:00 Test Item Value Reference Range Interpretation Comments MAGNESIUM (test code = MAG) 2.40 mg/dL 1.80-2.40 N GLUCOSE [id number] 14:41:00 Test Item Value Reference Range Interpretation Comments GLUCOSE BEDSIDE (test 233 MG/DL 70-110 H Per[facility] med by certified code = GLUBED) 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[facility] POC ARTERIAL BLOOD [id number] 14:21:00 Test Item Value Reference Range Interpretation Comments POC ARTERIAL BLOOD GAS PH (test 7.346 7.35-7.45 L code = POCPHA) POC ARTERIAL BLOOD GAS PCO2 63.5 mmHg 35.0-45 HH (test code = KWRJVE0U) POC TCO2 ARTERIAL (test code = 36.8 POCTCO2) POC ARTERIAL BLOOD GAS PO2 (test 74.6 mmHg 80-100.0 L code = PNHTC3V) POC HCO3 ARTERIAL (test code = 34.8 MMOL/L 22.0-26.0 HH SCAXZF0U) POC BASE EXCESS (test code = 9.1 MMOL/L -4.0-4.0 H POCBEA) POC O2 SATURATION (test code = 93.5 % 90-100 N POCO2S) FIO2 (test code = FIO2A) 50 % PaO2/FiO2 (test code = TRJ4PRL6) 149.20 mm/Hg ABG DELIVERY (test code = MAAME) BiPAP ABG TIDAL VOLUME (test code = 18 ml TVA) ABG PEEP (test code = PEEPA) 10 cmH2O ABG TEMPERATURE (test code = 98.2 F TEMPA) ABG SITE (test code = SITEA) Art Line MARTIN'S TEST (test code = N/A ALLENS) BASIC METABOLIC [id number] 14:21:00 Test Item Value Reference Range Interpretation [...] = POCGLU) 237 MG/DL 70-110 H HEMOGLOBIN [id number] 14:21:00 Test Item Value Reference Range Interpretation Comments HEMOGLOBIN ABG (test code = HGB/ABG) 8.1 G/DL 11.0-15.0 L [id number] 14:21:00 Test Item Value Reference Range Interpretation Comments HEMATOCRIT (test code = HCT/ABG) 24 % 33.0-45.0 L POC LACTIC [id number] 14:21:00 Test Item Value Reference Range Interpretation Comments POC LACTIC ACID (test code = 1.2 mmol/l 0.9-1.7 N POCLAC) POC ARTERIAL BLOOD [id number] 11:49:00 Test Item Value Reference Range Interpretation Comments POC ARTERIAL BLOOD GAS PH (test 7.348 7.35-7.45 L code = POCPHA) POC ARTERIAL BLOOD GAS PCO2 69.3 mmHg 35.0-45 HH (test code = EEADWJ8G) POC TCO2 ARTERIAL (test code = 40.0 POCTCO2) POC ARTERIAL BLOOD GAS PO2 (test 91.0 mmHg 80-100.0 N code = JODVZ9Z) POC HCO3 ARTERIAL (test code = 37.9 MMOL/L 22.0-26.0 HH PLBQUM3B) POC BASE EXCESS (test code = 12.3 MMOL/L -4.0-4.0 H POCBEA) POC O2 SATURATION (test code = 96.0 % 90-100 N POCO2S) FIO2 (test code = FIO2A) 60 % PaO2/FiO2 (test code = LGY5CGL0) 151.66 mm/Hg ABG DELIVERY (test code = MAAME) BiPAP ABG PEEP (test code = PEEPA) 8 cmH2O ABG PRESSURE SUPPORT (test code 14 cmH2O = PSABG) ABG TEMPERATURE (test code = 99 F TEMPA) ABG SITE (test code = SITEA) Art Line BASIC METABOLIC [id number] 11:49:00 Test Item Value Reference Range Interpretation [...] = POCGLU) 185 MG/DL 70-110 H HEMOGLOBIN [id number] 11:49:00 Test Item Value Reference Range Interpretation Comments HEMOGLOBIN ABG (test code = HGB/ABG) 8.7 G/DL 11.0-15.0 L [id number] 11:49:00 Test Item Value Reference Range Interpretation Comments HEMATOCRIT (test code = HCT/ABG) 26 % 33.0-45.0 L POC LACTIC [id number] 11:49:00 Test Item Value Reference Range Interpretation Comments POC LACTIC ACID (test code = 0.7 mmol/l 0.9-1.7 L POCLAC) GLUCOSE [id number] 09:32:00 Test Item Value Reference Range Interpretation Comments GLUCOSE BEDSIDE (test 143 MG/DL 70-110 H Perfor med by certified code = GLUBED) 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[facility] POC ARTERIAL BLOOD [id number] 09:21:00 Test Item Value Reference Range Interpretation Comments POC ARTERIAL BLOOD GAS PH (test 7.376 7.35-7.45 N code = POCPHA) POC ARTERIAL BLOOD GAS PCO2 65.5 mmHg 35.0-45 HH (test code = FMZMOA2F) POC TCO2 ARTERIAL (test code = 40.5 POCTCO2) POC ARTERIAL BLOOD GAS PO2 (test 84.5 mmHg 80-100.0 N code = QZVRD7V) POC HCO3 ARTERIAL (test code = 38.5 MMOL/L 22.0-26.0 HH KKAOBN4R) POC BASE EXCESS (test code = 13.2 MMOL/L -4.0-4.0 H POCBEA) POC O2 SATURATION (test code = 95.7 % 90-100 N POCO2S) FIO2 (test code = FIO2A) 70 % PaO2/FiO2 (test code = YTU6FMS6) 120.71 mm/Hg ABG DELIVERY (test code = MAAME) BiPAP ABG TIDAL VOLUME (test code = 14 ml TVA) ABG PEEP (test code = PEEPA) 8 cmH2O ABG TEMPERATURE (test code = 98.1 F TEMPA) ABG SITE (test code = SITEA) Art Line MARTIN'S TEST (test code = N/A ALLENS) BASIC METABOLIC [id number] 09:21:00 Test Item Value Reference Range Interpretation [...] = POCGLU) 157 MG/DL 70-110 H HEMOGLOBIN [id number] 09:21:00 Test Item Value Reference Range Interpretation Comments HEMOGLOBIN ABG (test code = HGB/ABG) 8.9 G/DL 11.0-15.0 L [id number] 09:21:00 Test Item Value Reference Range Interpretation Comments HEMATOCRIT (test code = HCT/ABG) 26 % 33.0-45.0 L POC LACTIC [id number] 09:21:00 Test Item Value Reference Range Interpretation Comments POC LACTIC ACID (test code = 0.7 mmol/l 0.9-1.7 L POCLAC) GLUCOSE [id number] 07:04:00 Test Item Value Reference Range Interpretation Comments GLUCOSE BEDSIDE (test 142 MG/DL 70-110 H Perfor med by certified code = GLUBED) 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[facility] POC ARTERIAL BLOOD [id number] 05:37:00 Test Item Value Reference Range Interpretation Comments POC ARTERIAL BLOOD GAS PH (test 7.363 7.35-7.45 N code = POCPHA) POC ARTERIAL BLOOD GAS PCO2 (test 64.5 mmHg 35.0-45 HH code = SPUWBT7N) POC TCO2 ARTERIAL (test code = 38.7 POCTCO2) POC ARTERIAL BLOOD GAS PO2 (test 60.3 mmHg 80-100.0 L code = SPXDB6Z) POC HCO3 ARTERIAL (test code = 36.8 MMOL/L 22.0-26.0 HH RHRMAI3G) POC BASE EXCESS (test code = 11.4 MMOL/L -4.0-4.0 H POCBEA) POC O2 SATURATION (test code = 88.7 % 90-100 L POCO2S) FIO2 (test code = FIO2A) 80 % PaO2/FiO2 (test code = UJC8MLD6) 75.37 mm/Hg ABG DELIVERY (test code = MAAME) HFNC ABG TEMPERATURE (test code = 98.6 F TEMPA) ABG SITE (test code = SITEA) R Radial MARTIN'S TEST (test code = ALLENS) Positive BASIC METABOLIC [id number] 05:37:00 Test Item Value Reference Range Interpretation [...] = POCGLU) 170 MG/DL 70-110 H HEMOGLOBIN [id number] 05:37:00 Test Item Value Reference Range Interpretation Comments HEMOGLOBIN ABG (test code = HGB/ABG) 8.3 G/DL 11.0-15.0 L [id number] 05:37:00 Test Item Value Reference Range Interpretation Comments HEMATOCRIT (test code = HCT/ABG) 24 % 33.0-45.0 L POC LACTIC [id number] 05:37:00 Test Item Value Reference Range Interpretation Comments POC LACTIC ACID (test code = 0.8 mmol/l 0.9-1.7 L POCLAC) BASIC METABOLIC [id number] 03:53:00 Test Item Value Reference Range Interpretation [...] code = 10.8 mg/dL 8.0-10.5 H CA) [id number] 03:53:00 Test Item Value Reference Range Interpretation Comments MAGNESIUM (test code = MAG) 2.31 mg/dL 1.80-2.40 N CBC W/AUTO [id number] 03:35:00 Test Item Value Reference Range Interpretation [...] NO = MDIFF) - XR CHEST 1 [id number] 00:00:00 [facility] : 1945 Sex: F FAX:Jeffry Pennington MD [phone] [place]: St: ADM FAX: Abdiaziz Christiansen MD [phone] FAX: René Blancas [phone] FAX: Colt Aguillon MD [phone] Name: SÚAL GILES [facility] : 1945 Age/S: 76/F [address] [place] [address] Unit #: [id number] Loc: G.2205 [place] [address] Phys: René Romero MD Acct: [id number] Dis Date: Status: ADM IN PHONE #: [phone] Exam Date: 12/24/2021630 FAX #: [phone] Reason: Cardiac Surgery Post Op EXAMS: CPT CODE: [id number] XR CHEST 1 V [id number] PROCEDURE INFORMATION: Exam: XR Chest Exam date and time: 12/24/2021 4:53 AM Age: 76 years old Clinical indication: Other: Cardiac surgery post op TECHNIQUE: Imaging protocol: Radiologic exam of formerly [facility]. Views: 1 view. COMPARISON: CR XR CHEST [...] signed by: Jasmeet Carlisle M.D. 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[facility] BASIC METABOLIC [id number] 21:26:00 Test Item Value Reference Range Interpretation [...] = POCGLU) 176 MG/DL 70-110 H HEMOGLOBIN [id number] 21:26:00 Test Item Value Reference Range Interpretation Comments HEMOGLOBIN ABG (test code = HGB/ABG) 8.8 G/DL 11.0-15.0 L [id number] 21:26:00 Test Item Value Reference Range Interpretation Comments HEMATOCRIT (test code = HCT/ABG) 26 % 33.0-45.0 L POC LACTIC [id number] 21:26:00 Test Item Value Reference Range Interpretation Comments POC LACTIC ACID (test code = 0.8 mmol/l 0.9-1.7 L POCLAC) POC VENOUS BLOOD [id number] 21:26:00 Test Item Value Reference Range Interpretation Comments POC VENOUS BLOOD GAS PH (test 7.346 7.33-7.45 N code = POCPHV) POC VENOUS BLOOD GAS PCO2 (test 70.7 mmHg 43-47 HH code = WXBKFB9N) POC VENOUS BLOOD GAS PO2 (test 39.7 mmHG 10-50 N code = PPFZL0O) POC TCO2 VENOUS (test code = 40.8 KIERQT2L) POC HCO3 VENOUS (test code = 38.6 MMOL/L 22-27 H ERRFRO8E) POC BASE EXCESS VENOUS (test 13.0 MMOL/L -4.0-4.0 H code = POCBEV) POC O2 SATURATION VENOUS (test 68.8 % 60-80 N code = OSJD7QG) VENOUS BLOOD GAS FIO2 (test code 70 % = FIO2V) VENOUS BLOOD GAS DELIVERY (test HFNC code = DELV) VENOUS BLOOD GAS TEMP (test code 98.6 F = TEMPV) VENOUS BLOOD GAS SITE (test code Central Line = SITEV) GLUCOSE [id number] 18:46:00 Test Item Value Reference Range Interpretation Comments GLUCOSE BEDSIDE (test 163 MG/DL 70-110 H Perfor med by certified code = GLUBED) 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[facility] BASIC METABOLIC [id number] 18:17:00 Test Item Value Reference Range Interpretation [...] = POCGLU) 186 MG/DL 70-110 H HEMOGLOBIN [id number] 18:17:00 Test Item Value Reference Range Interpretation Comments HEMOGLOBIN ABG (test code = HGB/ABG) 8.8 G/DL 11.0-15.0 L [id number] 18:17:00 Test Item Value Reference Range Interpretation Comments HEMATOCRIT (test code = HCT/ABG) 26 % 33.0-45.0 L POC LACTIC [id number] 18:17:00 Test Item Value Reference Range Interpretation Comments POC LACTIC ACID (test code = 0.7 mmol/l 0.9-1.7 L POCLAC) POC VENOUS BLOOD [id number] 18:17:00 Test Item Value Reference Range Interpretation Comments MARTIN'S TEST (test code = N/A ALLENS) POC VENOUS BLOOD GAS PH (test 7.308 7.33-7.45 L code = POCPHV) POC VENOUS BLOOD GAS PCO2 (test 75.8 mmHg 43-47 HH code = DDZLCP3Z) POC VENOUS BLOOD GAS PO2 (test 37.3 mmHG 10-50 N code = IDIZB7T) POC TCO2 VENOUS (test code = 40.5 XRUUOK3Q) POC HCO3 VENOUS (test code = 38.1 MMOL/L 22-27 H GMIBHK7A) POC BASE EXCESS VENOUS (test 11.8 MMOL/L -4.0-4.0 H code = POCBEV) POC O2 SATURATION VENOUS (test 63.8 % 60-80 N code = YRYU1XW) VENOUS BLOOD GAS FIO2 (test code 70 % = FIO2V) VENOUS BLOOD GAS DELIVERY (test HFNC code = DELV) VBG TIDAL VOLUME (test code = 60 ml TVV) VENOUS BLOOD GAS TEMP (test code 97.9 F = TEMPV) VENOUS BLOOD GAS SITE (test code Central Line = SITEV) GLUCOSE [id number] 17:37:00 Test Item Value Reference Range Interpretation Comments GLUCOSE BEDSIDE (test 150 MG/DL 70-110 H Perfor med by certified code = GLUBED) 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[facility] BASIC METABOLIC [id number] 15:37:00 Test Item Value Reference Range Interpretation [...] code = 10.4 mg/dL 8.0-10.5 N CA) [id number] 15:37:00 Test Item Value Reference Range Interpretation Comments MAGNESIUM (test code = MAG) 2.34 mg/dL 1.80-2.40 N GLUCOSE [id number] 15:19:00 Test Item Value Reference Range Interpretation Comments GLUCOSE BEDSIDE (test 209 MG/DL 70-110 H [facility] med by certified code = GLUBED) 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[facility] BASIC METABOLIC [id number] 13:47:00 Test Item Value Reference Range Interpretation [...] = POCGLU) 326 MG/DL 70-110 H HEMOGLOBIN [id number] 13:47:00 Test Item Value Reference Range Interpretation Comments HEMOGLOBIN ABG (test code = HGB/ABG) 9.0 G/DL 11.0-15.0 L [id number] 13:47:00 Test Item Value Reference Range Interpretation Comments HEMATOCRIT (test code = HCT/ABG) 27 % 33.0-45.0 L POC LACTIC [id number] 13:47:00 Test Item Value Reference Range Interpretation Comments POC LACTIC ACID (test code = 1.1 mmol/l 0.9-1.7 N POCLAC) POC VENOUS BLOOD [id number] 13:47:00 Test Item Value Reference Range Interpretation Comments POC VENOUS BLOOD GAS PH (test 7.298 7.33-7.45 L code = POCPHV) POC VENOUS BLOOD GAS PCO2 (test 69.6 mmHg 43-47 HH code = [id number]) POC VENOUS BLOOD GAS PO2 (test 33.8 mmHG 10-50 N code = TQGPT1A) POC TCO2 VENOUS (test code = 36.6 [id number]) POC HCO3 VENOUS (test code = 34.4 MMOL/L 22-27 H [id number]) POC BASE EXCESS VENOUS (test 7.8 MMOL/L -4.0-4.0 H code = POCBEV) POC O2 SATURATION VENOUS (test 58.7 % 60-80 L code = BPSR1LC) VENOUS BLOOD GAS FIO2 (test code 70 % = FIO2V) VENOUS BLOOD GAS DELIVERY (test HFNC code = DELV) VBG TIDAL VOLUME (test code = 60 ml TVV) VENOUS BLOOD GAS TEMP (test code 97.3 F = TEMPV) VENOUS BLOOD GAS SITE (test code Central Line = SITEV) GLUCOSE [id number] 13:38:00 Test Item Value Reference Range Interpretation Comments GLUCOSE BEDSIDE (test 236 MG/DL 70-110 H Perfor med by certified code = GLUBED) 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: Jeffry More MD : 43 BED: 1 DIS: STATUS: ADM IN TLOC: SPEC #: [id number] RECD: 12/22/21 STATUS: WILFREDO REQ #: [id number] ARA: 12/19/21 DR: Jeffry More MD ENTERED: 12/22/21 SP TYPE: SURGICAL OTHR DR: Aruna Fortune MD, Aisha MD Amin, Alkesh C MD Chaugle, Abdul Hannan MD Mouchli, Anas MD Raslan, Saleem MDORDERED: 04814, ANATOMIC SPEC COPIES TO: Aruna Fortune MD [address] [place] [address] Jeffry More MD [address] [place] [address] Suki Fuchs MD [address] [place] [address] Abdiaziz Fuchs MD [address] [address] Reén Romero MD [address] [place] [address] Blvd. [address] [place] [address] Jd Alva MD [address] [place] [address] Colt Vail MD [address] [facility] [address] [place] [address] CONTINUED ON NEXT PAGE R UN DATE: 12/23/21 [facility] - LAB PAGE 2 RUN TIME: 1235 Specimen Inquiry RUN USER: INTERFACE S PEC #: [id number] PATIENT: SAÚL GILES #[id number] (Continued) PROCEDURES: 49208 (12/22/21) TISSUES: A. PERICARDIUM BIOPSY CLINICAL HISTORY SAME FINAL DIAGNOSIS Pericardium, excision: Benign fibroconnective tissue with focal hemorrhage and mild acuteinflammation. GROSS DESCRIPTION Received in formalin labeled "pericardium" include 2 fragments of irregular shaped graham-graymembranous tissue, aggregating to 7.5 cm in maximum dimension, with career services representative sectionssubmitted in (A). Technical component performed at 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[facility] GLUCOSE [id number] 06:43:00 Test Item Value Reference Range Interpretation Comments GLUCOSE BEDSIDE (test 213 MG/DL 70-110 H Perfor med by certified code = GLUBED) 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[facility] CBC W/AUTO [id number] 05:12:00 Test Item Value Reference Range Interpretation [...] (test code NO = MDIFF) BASIC METABOLIC [id number] 04:47:00 Test Item Value Reference Range Interpretation [...] code = 10.5 mg/dL 8.0-10.5 N CA) [id number] 04:47:00 Test Item Value Reference Range Interpretation Comments MAGNESIUM (test code = MAG) 2.42 mg/dL 1.80-2.40 H POC ARTERIAL BLOOD [id number] 04:01:00 Test Item Value Reference Range Interpretation Comments POC ARTERIAL BLOOD GAS PH (test 7.313 7.35-7.45 L code = POCPHA) POC ARTERIAL BLOOD GAS PCO2 (test 61.5 mmHg 35.0-45 HH code = SIIAXQ4H) POC TCO2 ARTERIAL (test code = 33.1 POCTCO2) POC ARTERIAL BLOOD GAS PO2 (test 65.8 mmHg 80-100.0 L code = WPDPE9D) POC HCO3 ARTERIAL (test code = 31.2 MMOL/L 22.0-26.0 HH ZDHBZT6K) POC BASE EXCESS (test code = 5.0 MMOL/L -4.0-4.0 H POCBEA) POC O2 SATURATION (test code = 90.0 % 90-100 N POCO2S) FIO2 (test code = FIO2A) 73 % PaO2/FiO2 (test code = UIA9EXC2) 90.13 mm/Hg ABG DELIVERY (test code = MAAME) HFNC ABG SITE (test code = SITEA) R Radial MARTIN'S TEST (test code = ALLENS) Positive BASIC METABOLIC [id number] 04:01:00 Test Item Value Reference Range Interpretation [...] = POCGLU) 234 MG/DL 70-110 H HEMOGLOBIN [id number] 04:01:00 Test Item Value Reference Range Interpretation Comments HEMOGLOBIN ABG (test code = 11.2 G/DL 11.0-15.0 N HGB/ABG) [id number] 04:01:00 Test Item Value Reference Range Interpretation Comments HEMATOCRIT (test code = HCT/ABG) 33 % 33.0-45.0 N POC LACTIC [id number] 04:01:00 Test Item Value Reference Range Interpretation Comments POC LACTIC ACID (test code = 0.8 mmol/l 0.9-1.7 L POCLAC) GLUCOSE [id number] 00:43:00 Test Item Value Reference Range Interpretation Comments GLUCOSE BEDSIDE (test 222 MG/DL 70-110 H Perfor med by certified code = GLUBED) 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[facility] - XR ABDOMEN 1V (KUB)2021-12-23 00:00:00 [facility] 1945 Sex: F FAX:Jeffry Pennington MD [phone] [place]: St: ADM FAX: Abdiaziz Christiansen MD [phone] FAX: Solange Sawyer MD [phone] FAX: Colt Aguillon MD [phone] Name: SAÚL GILES [facility] : 1945 Age/S: 76/F [address] [place] [address] Unit #: [id number] Loc: G.[address] [place] [address] Phys: Solange Mohamud MD Acct: [id number] Dis Date: Status: ADM IN PHONE #: [phone] Exam Date: 12/23/202154 FAX #: [phone] Reason: NG TUBE PLACEMENT EXAMS: CPT CODE: [id number] XR ABDOMEN 1V (KUB) 75042 PROCEDURE INFORMATION: Exam: XR Abdomen Exam date [...] signed by: Sanchez Mendiola M.D CC: Jeffry More MD; Abdiaziz Fuchs MD; Solange Mohamud MD; Colt Vail MD Technologist: RT Elba(Marla) Trnscrd Date/Time/By: 12/23/2021 (121) : By: [email or web address] Orig Print D/T: S: 12/23/2021 (121) PAGE 1 Signed Report- XR CHEST 1 [id number] 00:00:00 [facility] 1945 Sex: F FAX:Jeffry Pennington MD [phone] [place]: St: [facility] FAX: Abdiaziz Christiansen MD [phone] FAX: René Blancas [phone] FAX: Colt Aguillon MD [phone] Name: CHANSAÚL [facility] : 1945 Age/S: 76/F [address] [place] [address] Blvd Unit #: [id number] Loc: G.[address] [place] [address] Phys: René Romero MD Acct: [id number] Dis Date: Status: ADM IN PHONE #: [phone] Exam Date: 12/23/2021 06 FAX #: [phone] Reason: Cardiac Surgery Post Op EXAMS: CPT CODE: [id number] XR CHEST 1 V 71364 PROCEDURE INFORMATION: Exam: XR Chest Exam date and time: 12/23/2021 5:07 AM Age: 76 years old Clinical indication: Other: Cardiac surgery post op TECHNIQUE: Imaging protocol: Radiologic exam of the chest. Views: 1 view. COMPARISON: CR XR CHEST 1V 12/22/2021 5:14 AM FINDINGS: Tubes, catheters and dev ices: Chest tubes removed. Secondcreek-Juanita catheter removed. Jugular introducer sheath remains in [...] signed by: Jesus Galdamez M.D. CC: Jeffry More MD; Abdiaziz Fuchs MD; René Romero MD; Colt Vail MD Technologist: RT Caroline(R) [...] CALCIUM (test code = CA) mg/dL 8.0-10.5 [id number] 23:05:00 Test Item Value Reference Range Interpretation Comments MAGNESIUM (test code = MAG) mg/dL 1.80-2.40 CBC W/AUTO [id number] 22:57:00 Test Item Value Reference Range Interpretation [...] REQUIRED (test NO code = MDIFF) CALCIUM [id number] 22:56:00 Test Item Value Reference Range Interpretation Comments CALCIUM IONIZED (test code = TYREE) 1.10 MMOL/L 1.09-1.30 N GLUCOSE [id number] 21:52:00 Test Item Value Reference Range Interpretation Comments GLUCOSE BEDSIDE (test 168 MG/DL 70-110 H Perfor med by certified code = GLUBED) 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[facility] GLUCOSE [id number] 18:08:00 Test Item Value Reference Range Interpretation Comments GLUCOSE BEDSIDE (test 238 MG/DL 70-110 H Perfor med by certified code = GLUBED) 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[facility] BASIC METABOLIC [id number] 17:53:00 Test Item Value Reference Range Interpretation [...] = POCGLU) 236 MG/DL 70-110 H HEMOGLOBIN [id number] 17:53:00 Test Item Value Reference Range Interpretation Comments HEMOGLOBIN ABG (test code = 11.8 G/DL 11.0-15.0 N HGB/ABG) [id number] 17:53:00 Test Item Value Reference Range Interpretation Comments HEMATOCRIT (test code = HCT/ABG) 35 % 33.0-45.0 N POC LACTIC [id number] 17:53:00 Test Item Value Reference Range Interpretation Comments POC LACTIC ACID (test code = 0.7 mmol/l 0.9-1.7 L POCLAC) POC VENOUS BLOOD [id number] 17:53:00 Test Item Value Reference Range Interpretation Comments MARTIN'S TEST (test code = N/A ALLENS) POC VENOUS BLOOD GAS PH (test 7.282 7.33-7.45 L code = POCPHV) POC VENOUS BLOOD GAS PCO2 (test 61.7 mmHg 43-47 HH code = QPNBKY9O) POC VENOUS BLOOD GAS PO2 (test 37.2 mmHG 10-50 N code = RCYKS8C) POC TCO2 VENOUS (test code = 31.2 XNDOTI4R) POC HCO3 VENOUS (test code = 29.3 MMOL/L 22-27 H BCKWEP2C) POC BASE EXCESS VENOUS (test 2.5 MMOL/L -4.0-4.0 N code = POCBEV) POC O2 SATURATION VENOUS (test 63.2 % 60-80 N code = BWXD7RH) VENOUS BLOOD GAS FIO2 (test code 40 % = FIO2V) VENOUS BLOOD GAS DELIVERY (test BiPAP code = DELV) VBG VENT MODE (test code = BIVENT MODEV) VENOUS BLOOD GAS TEMP (test code 98 F = TEMPV) VENOUS BLOOD GAS SITE (test code Central Line = SITEV) BASIC METABOLIC [id number] 15:58:00 Test Item Value Reference Range Interpretation [...] = POCGLU) 371 MG/DL 70-110 H HEMOGLOBIN [id number] 15:58:00 Test Item Value Reference Range Interpretation Comments HEMOGLOBIN ABG (test code = HGB/ABG) 8.1 G/DL 11.0-15.0 L [id number] 15:58:00 Test Item Value Reference Range Interpretation Comments HEMATOCRIT (test code = HCT/ABG) 24 % 33.0-45.0 L POC LACTIC [id number] 15:58:00 Test Item Value Reference Range Interpretation Comments POC LACTIC ACID (test code = 0.6 mmol/l 0.9-1.7 L POCLAC) POC VENOUS BLOOD [id number] 15:58:00 Test Item Value Reference Range Interpretation Comments MARTIN'S TEST (test code = N/A ALLENS) POC VENOUS BLOOD GAS PH (test 7.226 7.33-7.45 L code = POCPHV) POC VENOUS BLOOD GAS PCO2 (test 74.1 mmHg 43-47 HH code = JUQWQJ8I) POC VENOUS BLOOD GAS PO2 (test 36.8 mmHG 10-50 N code = GIFAH3J) POC TCO2 VENOUS (test code = 33.2 RZQWDM5B) POC HCO3 VENOUS (test code = 30.9 MMOL/L 22-27 H STEECE6V) POC BASE EXCESS VENOUS (test 3.2 MMOL/L -4.0-4.0 N code = POCBEV) POC O2 SATURATION VENOUS (test 58.2 % 60-80 L code = FVHO6KF) VENOUS BLOOD GAS FIO2 (test code 60 % = FIO2V) VENOUS BLOOD GAS DELIVERY (test Vapotherm code = DELV) SHAHBAZ. BLOOD GAS RESP. 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[facility] [id number] 07:18:00 Test Item Value Reference Range Interpretation Comments PHOSPHOROUS (test code = PHOS) 3.4 MG/DL 2.5-4.9 N GLUCOSE [id number] 07:01:00 Test Item Value Reference Range Interpretation Comments GLUCOSE BEDSIDE (test 211 MG/DL 70-110 H Perfor med by certified code = GLUBED) 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[facility] CBC W/AUTO [id number] 05:28:00 Test Item Value Reference Range Interpretation [...] (test code NO = MDIFF) BASIC METABOLIC [id number] 05:03:00 Test Item Value Reference Range Interpretation [...] 8.0-10.5 N CA) COMMENTS: POD #1HEPATIC FUNCTION [id number] 05:03:00 Test Item Value Reference Range Interpretation [...] 20-125 N code = ALKP) COMMENTS: POD #[id number] 05:03:00 Test Item Value Reference Range Interpretation Comments MAGNESIUM (test code = MAG) 2.20 mg/dL 1.80-2.40 N COMMENTS: POD #1POC ARTERIAL BLOOD [id number] 04:35:00 Test Item Value Reference Range Interpretation Comments POC ARTERIAL BLOOD GAS PH (test 7.334 7.35-7.45 L code = POCPHA) POC ARTERIAL BLOOD GAS PCO2 55.7 mmHg 35.0-45 HH (test code = UVZIKI2X) POC TCO2 ARTERIAL (test code = 31.4 POCTCO2) POC ARTERIAL BLOOD GAS PO2 (test 88.6 mmHg 80-100.0 N code = ZDDWC2Q) POC HCO3 ARTERIAL (test code = 29.7 MMOL/L 22.0-26.0 HH BPYYIW3D) POC BASE EXCESS (test code = 3.8 MMOL/L -4.0-4.0 N POCBEA) POC O2 SATURATION (test code = 96.0 % 90-100 N POCO2S) FIO2 (test code = FIO2A) 60 % PaO2/FiO2 (test code = FQJ9MHL7) 147.66 mm/Hg ABG DELIVERY (test code = MAAME) BiPAP ABG VENT RESP RATE (test code = 25 /MIN RRA) ABG TIDAL VOLUME (test code = 550 ml TVA) ABG TEMPERATURE (test code = 98.4 F TEMPA) ABG SITE (test code = SITEA) Art Line BASIC METABOLIC [id number] 04:35:00 Test Item Value Reference Range Interpretation [...] = POCGLU) 224 MG/DL 70-110 H HEMOGLOBIN [id number] 04:35:00 Test Item Value Reference Range Interpretation Comments HEMOGLOBIN ABG (test code = HGB/ABG) 8.6 G/DL 11.0-15.0 L [id number] 04:35:00 Test Item Value Reference Range Interpretation Comments HEMATOCRIT (test code = HCT/ABG) 25 % 33.0-45.0 L POC LACTIC [id number] 04:35:00 Test Item Value Reference Range Interpretation Comments POC LACTIC ACID (test code = 0.9 mmol/l 0.9-1.7 N POCLAC) GLUCOSE [id number] 00:16:00 Test Item Value Reference Range Interpretation Comments GLUCOSE BEDSIDE (test 178 MG/DL 70-110 H Perfor med by certified code = GLUBED) 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[facility] POC ARTERIAL BLOOD [id number] 00:06:00 Test Item Value Reference Range Interpretation Comments POC ARTERIAL BLOOD GAS PH (test 7.330 7.35-7.45 L code = POCPHA) POC ARTERIAL BLOOD GAS PCO2 51.8 mmHg 35.0-45 HH (test code = NAGBDI8E) POC TCO2 ARTERIAL (test code = 29.1 POCTCO2) POC ARTERIAL BLOOD GAS PO2 (test 69.4 mmHg 80-100.0 L code = BBYCW2G) POC HCO3 ARTERIAL (test code = 27.5 MMOL/L 22.0-26.0 H NHIJSE4G) POC BASE EXCESS (test code = 1.4 MMOL/L -4.0-4.0 N POCBEA) POC O2 SATURATION (test code = 92.5 % 90-100 N POCO2S) FIO2 (test code = FIO2A) 60 % PaO2/FiO2 (test code = RKQ4NVN4) 115.66 mm/Hg ABG DELIVERY (test code = MAAME) BiPAP ABG VENT RESP RATE (test code = 25 /MIN RRA) ABG TIDAL VOLUME (test code = 550 ml TVA) ABG TEMPERATURE (test code = 97.7 F TEMPA) ABG SITE (test code = SITEA) Art Line BASIC METABOLIC [id number] 00:06:00 Test Item Value Reference Range Interpretation [...] = POCGLU) 196 MG/DL 70-110 H HEMOGLOBIN [id number] 00:06:00 Test Item Value Reference Range Interpretation Comments HEMOGLOBIN ABG (test code = HGB/ABG) 8.3 G/DL 11.0-15.0 L [id number] 00:06:00 Test Item Value Reference Range Interpretation Comments HEMATOCRIT (test code = HCT/ABG) 24 % 33.0-45.0 L POC LACTIC [id number] 00:06:00 Test Item Value Reference Range Interpretation Comments POC LACTIC ACID (test code = 0.8 mmol/l 0.9-1.7 L POCLAC) - XR ABDOMEN 1V (KUB)2021-12-22 00:00:00 [facility] : 1945 Sex: F FAX:Jeffry Pennington MD [phone] [place]: St: ADM FAX: Abdiaziz Christiansen MD [phone] FAX: Solange Sawyer MD [phone] FAX: Colt Aguillon MD [phone] Name: SAÚL GILES [facility] : 1945 Age/S: 76/F [address] [place] [address] Unit #: [id number] Loc: [address] [place] [address] Phys: Solange Mohamud MD Acct: [id number] Dis Date: Status: ADM IN PHONE #: [phone] Exam Date: 12/22/20212133 FAX #: [phone] Reason: NAUSEA EXAMS: CPT CODE: [id number] XR ABDOMEN 1V (KUB) 67950 PROCEDURE INFORMATION: Exam: XR Abdomen Exam date [...] better assess for small bowel obstruction at 7414 Reported and signed by: Anoop Lilly M.D. CC: Jeffry More MD; Abdiaziz Fuchs MD; Solange Mohamud MD; Colt Vail MD Technologist: Radha Aaron, RT(R) Trnscrd Date/Time/By: 12/22/2021 (2153) : By: [email or web address] Orig Print D/T: S: 12/22/2021 (2154) PAGE 1 SignedReport- US SOFT TISSUE [id number] 00:00[facility]00[facility] : 1945 Sex: F Name: SAÚL GILES [facility] : 1945 Age/S: 76 / F [address] [place] [address] Unit #: [id number] Loc: [place] [address] Phys: Jd Alva MD Acct: [id number] Dis Date: Status: ADM IN PHONE #:[phone] Exam Date: 12/22/20211106 FAX #: [phone] Reason: right pleural effusion EXAMS: CPT CODE: [id number] US SOFT TISSUE TORSO 60859 PROCEDURE INFORMATION: Exam: US Chest, Pleural Space [...] effusions. at 1125 Reported and signed by: mAina Garcia D.O. CC: Jeffry More MD; Abdiaziz Fuchs MD; Jd Alva MD; Colt Vail MD Technologist: Silke Vee RDMS(AB)(OB) Trnscb Date/Time: 12/22/2021 (1124) AdisR.[email or web address] Orig Print D/T: S: 12/22/2021 (1124) Probe: PAGE 1 Signed Report- XR CHEST 1 V 2021-12-22 00:00:00 [facility] : 1945 Sex: F FAX:Jeffry Pennington MD [phone] [place]: St: ADM FAX: Abdiaziz Christiansen MD [phone] FAX: René Blancas [phone] FAX: Colt Aguillon MD [phone] Name: SAÚL GILES [facility] : 1945 Age/S: 76/F [address] [place] [address] Unit #: [id number] Loc: [address] [place] [address] Phys: René Romero MD Acct: [id number] Dis Date: Status: ADM IN PHONE #: [phone] Exam Date: 12/22/2021 0635 FAX #: [phone] Reason: Cardiac Surgery Post Op EXAMS: CPT CODE: [id number] XR CHEST 1 V 83972 PROCEDURE INFORMATION: Exam: XR Chest Exam date and time: 12/22/2021 5:14 AM Age: 76 years old Clinical indication: Other: Cardiac surgery post op TECHNIQUE: Imaging protocol: Radiologic exam of the chest. Views: 1 view. COMPARISON: CR XR CHEST 1V 12/21/2021 5:41 AM FINDINGS: Tubes, catheters and jarrett grey: Right IJ Secondcreek-Juanita introducer and Secondcreek-Juanita catheter with the catheter tip at the [...] Signed Report (CONTINUED) FAX: Jeffry Pennington MD [phone] [place]: St: ADM FAX: Abdiaziz Christiansen MD [phone] FAX: René Blancas [phone] FAX: Colt Aguillon MD [phone] Name: SAÚL GILES [facility] : 1945 Age/S: 76/F [address] [place] [address] Unit #: [id number] Loc: [address] [place] [address] Phys: René Romero MD Acct: [id number] Dis Date: Status: ADM IN PHONE #: [phone] Exam Date: 12/22/2021634 FAX #: [phone] Reason: Cardiac Surgery Post Op EXAMS: CPT CODE: [id number] XR CHEST 1 V 28738 (Continued) CC: Jeffry More MD; Abdiaziz Fuchs MD; René Romero MD; Colt Vail MD Technologist: Hali Leon RT(R) Trnscrd Date/Time/By: 12/22/2021 (904) : By: [email or web address] Orig Print D/T: S: 12/22/2021 (904) PAGE 2 Signed Report[facility] ART[facility] BLOOD [id number] 21:10:00 Test Item Value Reference Range Interpretation Comments POC ARTERIAL BLOOD GAS PH (test 7.306 7.35-7.45 L code = POCPHA) POC ARTERIAL BLOOD GAS PCO2 56.1 mmHg 35.0-45 HH (test code = HBUQSK4Q) POC TCO2 ARTERIAL (test code = 29.8 POCTCO2) POC ARTERIAL BLOOD GAS PO2 (test 64.8 mmHg 80-100.0 L code = TTLUY5M) POC HCO3 ARTERIAL (test code = 28.1 MMOL/L 22.0-26.0 HH DKGIRW9Z) POC BASE EXCESS (test code = 1.7 MMOL/L -4.0-4.0 N POCBEA) POC O2 SATURATION (test code = 90.0 % 90-100 N POCO2S) FIO2 (test code = FIO2A) 60 % PaO2/FiO2 (test code = ITH8UAS1) 108.00 mm/Hg ABG DELIVERY (test code = MAAME) BiPAP ABG VENT RESP RATE (test code = 25 /MIN RRA) ABG TIDAL VOLUME (test code = 550 ml TVA) ABG TEMPERATURE (test code = 98.1 F TEMPA) ABG SITE (test code = SITEA) Art Line BASIC METABOLIC [id number] 21:10:00 Test Item Value Reference Range Interpretation [...] = POCGLU) 200 MG/DL 70-110 H HEMOGLOBIN [id number] 21:10:00 Test Item Value Reference Range Interpretation Comments HEMOGLOBIN ABG (test code = HGB/ABG) 8.4 G/DL 11.0-15.0 L [id number] 21:10:00 Test Item Value Reference Range Interpretation Comments HEMATOCRIT (test code = HCT/ABG) 25 % 33.0-45.0 L POC LACTIC [id number] 21:10:00 Test Item Value Reference Range Interpretation Comments POC LACTIC ACID (test code = 0.8 mmol/l 0.9-1.7 L POCLAC) GLUCOSE [id number] 16:26:00 Test Item Value Reference Range Interpretation Comments GLUCOSE BEDSIDE (test 178 MG/DL 70-110 H Perfor med by certified code = GLUBED) 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[facility] POC ARTERIAL BLOOD [id number] 16:07:00 Test Item Value Reference Range Interpretation Comments POC ARTERIAL BLOOD GAS PH (test 7.282 7.35-7.45 LL code = POCPHA) POC ARTERIAL BLOOD GAS PCO2 (test 56.0 mmHg 35.0-45 HH code = NZWREW8P) POC TCO2 ARTERIAL (test code = 28.3 POCTCO2) POC ARTERIAL BLOOD GAS PO2 (test 92.5 mmHg 80-100.0 N code = FCLFD5B) POC HCO3 ARTERIAL (test code = 26.5 MMOL/L 22.0-26.0 H LBRSUR0U) POC BASE EXCESS (test code = -0.3 MMOL/L -4.0-4.0 N POCBEA) POC O2 SATURATION (test code = 96.0 % 90-100 N POCO2S) FIO2 (test code = FIO2A) 100 % PaO2/FiO2 (test code = YOP6RBN7) 92.50 mm/Hg ABG DELIVERY (test code = MAAME) Vapotherm ABG TEMPERATURE (test code = 98 F TEMPA) ABG SITE (test code = SITEA) Art Line MARTIN'S TEST (test code = ALLENS) N/A BASIC METABOLIC [id number] 16:07:00 Test Item Value Reference Range Interpretation [...] = POCGLU) 175 MG/DL 70-110 H HEMOGLOBIN [id number] 16:07:00 Test Item Value Reference Range Interpretation Comments HEMOGLOBIN ABG (test code = HGB/ABG) 8.6 G/DL 11.0-15.0 L [id number] 16:07:00 Test Item Value Reference Range Interpretation Comments HEMATOCRIT (test code = HCT/ABG) 25 % 33.0-45.0 L POC LACTIC [id number] 16:07:00 Test Item Value Reference Range Interpretation Comments POC LACTIC ACID (test code = 1.0 mmol/l 0.9-1.7 N POCLAC) POC ARTERIAL BLOOD [id number] 15:23:00 Test Item Value Reference Range Interpretation Comments POC ARTERIAL BLOOD GAS PH (test 7.310 7.35-7.45 L code = POCPHA) POC ARTERIAL BLOOD GAS PCO2 52.4 mmHg 35.0-45 HH (test code = PTPRCL1A) POC TCO2 ARTERIAL (test code = 27.9 POCTCO2) POC ARTERIAL BLOOD GAS PO2 (test 87.5 mmHg 80-100.0 N code = YYUYG1C) POC HCO3 ARTERIAL (test code = 26.3 MMOL/L 22.0-26.0 H LZSKAZ8U) POC BASE EXCESS (test code = 0.1 MMOL/L -4.0-4.0 N POCBEA) POC O2 SATURATION (test code = 95.4 % 90-100 N POCO2S) FIO2 (test code = FIO2A) 60 % PaO2/FiO2 (test code = FLI7FHW8) 145.83 mm/Hg ABG DELIVERY (test code = MAAME) BiPAP ABG TEMPERATURE (test code = 99 F TEMPA) ABG SITE (test code = SITEA) Art Line MARTIN'S TEST (test code = N/A ALLENS) BASIC METABOLIC [id number] 15:23:00 Test Item Value Reference Range Interpretation [...] = POCGLU) 193 MG/DL 70-110 H HEMOGLOBIN [id number] 15:23:00 Test Item Value Reference Range Interpretation Comments HEMOGLOBIN ABG (test code = HGB/ABG) 7.8 G/DL 11.0-15.0 L [id number] 15:23:00 Test Item Value Reference Range Interpretation Comments HEMATOCRIT (test code = HCT/ABG) 23 % 33.0-45.0 L POC LACTIC [id number] 15:23:00 Test Item Value Reference Range Interpretation Comments POC LACTIC ACID (test code = 0.9 mmol/l 0.9-1.7 N POCLAC) POC ARTERIAL BLOOD [id number] 12:31:00 Test Item Value Reference Range Interpretation Comments POC ARTERIAL BLOOD GAS PH (test 7.227 7.35-7.45 LL code = POCPHA) POC ARTERIAL BLOOD GAS PCO2 (test 65.9 mmHg 35.0-45 HH code = [id number]) POC TCO2 ARTERIAL (test code = 29.4 POCTCO2) POC ARTERIAL BLOOD GAS PO2 (test 47.8 mmHg 80-100.0 LL code = ESQBY4S) POC HCO3 ARTERIAL (test code = 27.4 MMOL/L 22.0-26.0 H [id number]) POC BASE EXCESS (test code = -0.2 MMOL/L -4.0-4.0 N POCBEA) POC O2 SATURATION (test code = 73.8 % 90-100 L POCO2S) FIO2 (test code = FIO2A) 100 % PaO2/FiO2 (test code = [id number]) 47.80 mm/Hg ABG DELIVERY (test code = MAAME) Vapotherm ABG SITE (test code = SITEA) Art Line MARTIN'S TEST (test code = ALLENS) N/A BASIC METABOLIC [id number] 12:31:00 Test Item Value Reference Range Interpretation [...] = POCGLU) 139 MG/DL 70-110 H HEMOGLOBIN [id number] 12:31:00 Test Item Value Reference Range Interpretation Comments HEMOGLOBIN ABG (test code = HGB/ABG) 8.7 G/DL 11.0-15.0 L [id number] 12:31:00 Test Item Value Reference Range Interpretation Comments HEMATOCRIT (test code = HCT/ABG) 26 % 33.0-45.0 L POC LACTIC [id number] 12:31:00 Test Item Value Reference Range Interpretation Comments POC LACTIC ACID (test code = 0.8 mmol/l 0.9-1.7 L POCLAC) [id number] 11:49:00 Test Item Value Reference Range Interpretation Comments PHOSPHOROUS (test code = PHOS) 4.5 MG/DL 2.5-4.9 N CALCIUM [id number] 09:46:00 Test Item Value Reference Range Interpretation Comments CALCIUM IONIZED (test code = TYREE) 1.17 MMOL/L 1.09-1.30 N GLUCOSE [id number] 08:28:00 Test Item Value Reference Range Interpretation Comments GLUCOSE BEDSIDE (test 114 MG/DL 70-110 H Perfor med by certified code = GLUBED) 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[facility] GLUCOSE [id number] 04:20:00 Test Item Value Reference Range Interpretation Comments GLUCOSE BEDSIDE (test 113 MG/DL 70-110 H Perfor med by certified code = GLUBED) 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[facility] BASIC METABOLIC [id number] 03:00:00 Test Item Value Reference Range Interpretation [...] 8.0-10.5 N CA) COMMENTS: POD #1HEPATIC FUNCTION [id number] 03:00:00 Test Item Value Reference Range Interpretation [...] 20-125 N code = ALKP) COMMENTS: POD #[id number] 03:00:00 Test Item Value Reference Range Interpretation Comments MAGNESIUM (test code = MAG) 2.41 mg/dL 1.80-2.40 H COMMENTS: POD #1CBC W/AUTO [id number] 02:32:00 Test Item Value Reference Range Interpretation [...] code NO = MDIFF) POC ARTERIAL BLOOD [id number] 02:12:00 Test Item Value Reference Range Interpretation Comments POC ARTERIAL BLOOD GAS PH (test 7.341 7.35-7.45 L code = POCPHA) POC ARTERIAL BLOOD GAS PCO2 50.1 mmHg 35.0-45 HH (test code = CQIZBC7L) POC TCO2 ARTERIAL (test code = 28.7 POCTCO2) POC ARTERIAL BLOOD GAS PO2 (test 95.7 mmHg 80-100.0 N code = AZFGF6E) POC HCO3 ARTERIAL (test code = 27.1 MMOL/L 22.0-26.0 H YZAPSZ2O) POC BASE EXCESS (test code = 1.4 MMOL/L -4.0-4.0 N POCBEA) POC O2 SATURATION (test code = 96.8 % 90-100 N POCO2S) FIO2 (test code = FIO2A) 60 % PaO2/FiO2 (test code = HMP8NVW0) 159.50 mm/Hg ABG DELIVERY (test code = MAAME) BiPAP ABG VENT RESP RATE (test code = 25 /MIN RRA) ABG TEMPERATURE (test code = 98.7 F TEMPA) ABG SITE (test code = SITEA) Art Line BASIC METABOLIC [id number] 02:12:00 Test Item Value Reference Range Interpretation [...] = POCGLU) 113 MG/DL 70-110 H HEMOGLOBIN [id number] 02:12:00 Test Item Value Reference Range Interpretation Comments HEMOGLOBIN ABG (test code = HGB/ABG) 8.4 G/DL 11.0-15.0 L [id number] 02:12:00 Test Item Value Reference Range Interpretation Comments HEMATOCRIT (test code = HCT/ABG) 25 % 33.0-45.0 L POC LACTIC [id number] 02:12:00 Test Item Value Reference Range Interpretation Comments POC LACTIC ACID (test code = 0.8 mmol/l 0.9-1.7 L POCLAC) CREATININE [id number] 01:08:00 Test Item Value Reference Range Interpretation Comments CREATININE ABG (test code = 1.4 mg/dL 0.6-1.0 H CREAABG) HEMOGLOBIN [id number] 01:08:00 Test Item Value Reference Range Interpretation Comments HEMOGLOBIN ABG (test code = HGB/ABG) 5.9 G/DL 11.0-15.0 L [id number] 01:08:00 Test Item Value Reference Range Interpretation Comments HEMATOCRIT (test code = HCT/ABG) 17 % 33.0-45.0 L POC VENOUS BLOOD [id number] 01:08:00 Test Item Value Reference Range Interpretation Comments POC VENOUS BLOOD GAS PH (test 7.329 7.33-7.45 L code = POCPHV) POC VENOUS BLOOD GAS PCO2 (test 39.5 mmHg 43-47 L code = TTEDDZ4R) POC VENOUS BLOOD GAS PO2 (test 33.3 mmHG 10-50 N code = KYIEZ0S) POC TCO2 VENOUS (test code = 22.0 FALMWS8L) POC HCO3 VENOUS (test code = 20.8 MMOL/L 22-27 L YHGJVD2M) POC BASE EXCESS VENOUS (test code -5.2 MMOL/L -4.0-4.0 L = POCBEV) POC O2 SATURATION VENOUS (test 60.0 % 60-80 N code = PZMX6LX) VENOUS BLOOD GAS FIO2 (test code 60 % = FIO2V) VENOUS BLOOD GAS DELIVERY (test BiPAP code = DELV) VENOUS BLOOD GAS TEMP (test code 98.6 F = TEMPV) VENOUS BLOOD GAS SITE (test code Tj Grant = SITEV) - XR CHEST 1 [id number] 00:00:00 [facility] 1945 Sex: F FAX:Jeffry Pennington MD [phone] [place]: St: ADM FAX: Abdiaziz Christiansen MD [phone] FAX: Solange Sawyer MD [phone] FAX: Colt Aguillon MD [phone] Name: SAÚL GILES [facility] : 1945 Age/S: 76/F [address] [place] [address] Unit #: [id number] Loc: G.[address] [place] [address] Phys: Solange Mohamud MD Acct: [id number] Dis Date: Status: ADM IN PHONE #: [phone] Exam Date: 12/21/2021 0647 FAX #: [phone] Reason: CONFIRM CHEST TUBE LOCATION EXAMS: CPT CODE: [id number] XR CHEST 1 V 71110 PROCEDURE INFORMATION: Exam: XR Chest Exam date [...] signed by: Shemar Barnes M.D. CC: Jeffry More MD; Abdiaziz Fuchs MD; Solange Mohamud MD; Colt Vail MD Technologist: Shell Min, RT(R); Debbie Fuentes RT(R) Trnscrd Date/Time /By: 12/21/2021 (699) : By: [email or web address] Orig Print D/T: S: 12/21/2021 (699) PAGE 1 Signed Report- US RETROPERITONEAL [id number] 00:00:00 [facility] 1945 Sex: F Name: SAÚL GILES [facility] : 1945 Age/S: 76 / F [address] [place] [address] Blvd Unit #: [id number] Loc: [place] [address] Phys: Jd Alva MD Acct: [id number] Dis Date: Status: ADM IN PHONE #:[phone] Exam Date: 12/21/2021 1800 FAX #: [phone] Reason: MARCELLO EXAMS: CPT CODE: [id number] US RETROPERITONEAL COM [id number] PROCEDURE INFORMATION: Exam: US Retroperitoneal; Complete; Kidneys and Bladder Exam date and time: 12/21/2021 5:39 PM Age: 76 years old Clinical indication: Screening exam; Other: Marcello TECHNIQUE: Imaging protocol: Real-time ultrasound of the retroperitoneum with image documentation. Complete exam focused on the kidneys and bladder. COMPARISON: US DUP VEIN OLLIE 12/17/2021 6:12 PM FINDINGS: Right kidney: The [...] signed by: Haris Chavez M.D. 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[facility] BASIC METABOLIC [id number] 21:49:00 Test Item Value Reference Range Interpretation [...] mg/dL 8.0-10.5 N CA) POC ARTERIAL BLOOD [id number] 21:23:00 Test Item Value Reference Range Interpretation Comments POC ARTERIAL BLOOD GAS PH (test 7.328 7.35-7.45 L code = POCPHA) POC ARTERIAL BLOOD GAS PCO2 50.9 mmHg 35.0-45 HH (test code = KPRXLA0K) POC TCO2 ARTERIAL (test code = 28.3 POCTCO2) POC ARTERIAL BLOOD GAS PO2 (test 89.7 mmHg 80-100.0 N code = GYCPN2K) POC HCO3 ARTERIAL (test code = 26.7 MMOL/L 22.0-26.0 H GRXPMK1C) POC BASE EXCESS (test code = 0.8 MMOL/L -4.0-4.0 N POCBEA) POC O2 SATURATION (test code = 96.0 % 90-100 N POCO2S) FIO2 (test code = FIO2A) 60 % PaO2/FiO2 (test code = CJP4JZB5) 149.50 mm/Hg ABG DELIVERY (test code = MAAME) BiPAP ABG VENT RESP RATE (test code = 25 /MIN RRA) ABG TIDAL VOLUME (test code = 550 ml TVA) ABG TEMPERATURE (test code = 98.7 F TEMPA) ABG SITE (test code = SITEA) Art Line BASIC METABOLIC [id number] 21:23:00 Test Item Value Reference Range Interpretation [...] = POCGLU) 128 MG/DL 70-110 H HEMOGLOBIN [id number] 21:23:00 Test Item Value Reference Range Interpretation Comments HEMOGLOBIN ABG (test code = HGB/ABG) 7.8 G/DL 11.0-15.0 L [id number] 21:23:00 Test Item Value Reference Range Interpretation Comments HEMATOCRIT (test code = HCT/ABG) 23 % 33.0-45.0 L POC LACTIC [id number] 21:23:00 Test Item Value Reference Range Interpretation Comments POC LACTIC ACID (test code = 0.6 mmol/l 0.9-1.7 L POCLAC) GLUCOSE [id number] 19:21:00 Test Item Value Reference Range Interpretation Comments GLUCOSE BEDSIDE (test 136 MG/DL 70-110 H Perfor med by certified code = GLUBED) 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0 N POCBEA) POC O2 SATURATION (test code = 96.5 % 90-100 N POCO2S) FIO2 (test code = FIO2A) 60 % PaO2/FiO2 (test code = KHF1OOD2) 158.83 mm/Hg ABG DELIVERY (test code = [...] (test code = N/A ALLENS) BASIC METABOLIC [id number] 17:08:00 Test Item Value Reference Range Interpretation [...] = POCGLU) 136 MG/DL 70-110 H HEMOGLOBIN [id number] 17:08:00 Test Item Value Reference Range Interpretation Comments HEMOGLOBIN ABG (test code = HGB/ABG) 7.5 G/DL 11.0-15.0 L [id number] 17:08:00 Test Item Value Reference Range Interpretation Comments HEMATOCRIT (test code = HCT/ABG) 22 % 33.0-45.0 L POC LACTIC [id number] 17:08:00 Test Item Value Reference Range Interpretation Comments POC LACTIC ACID (test code = 0.7 mmol/l 0.9-1.7 L POCLAC) GLUCOSE [id number] 16:30:00 Test Item Value Reference Range Interpretation Comments GLUCOSE BEDSIDE (test 139 MG/DL 70-110 H Perfor med by certified code = GLUBED) 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[facility] POC ARTERIAL BLOOD [id number] 15:19:00 Test Item Value Reference Range Interpretation Comments POC ARTERIAL BLOOD GAS PH (test 7.318 7.35-7.45 L code = POCPHA) POC ARTERIAL BLOOD GAS PCO2 52.0 mmHg 35.0-45 HH (test code = MIVWEP8P) POC TCO2 ARTERIAL (test code = 28.3 POCTCO2) POC ARTERIAL BLOOD GAS PO2 (test 244.0 mmHg 80-100.0 HH code = TMKUU0Z) POC HCO3 ARTERIAL (test code = 26.7 MMOL/L 22.0-26.0 H YXYMFS2D) POC BASE EXCESS (test code = 0.6 MMOL/L -4.0-4.0 N POCBEA) POC O2 SATURATION (test code = 99.8 % 90-100 N POCO2S) FIO2 (test code = FIO2A) 100 % PaO2/FiO2 (test code = UWP0IYF1) 244.00 mm/Hg ABG DELIVERY (test code = [...] (test code = N/A ALLENS) BASIC METABOLIC [id number] 15:19:00 Test Item Value Reference Range Interpretation [...] = POCGLU) 144 MG/DL 70-110 H HEMOGLOBIN [id number] 15:19:00 Test Item Value Reference Range Interpretation Comments HEMOGLOBIN ABG (test code = HGB/ABG) 9.8 G/DL 11.0-15.0 L [id number] 15:19:00 Test Item Value Reference Range Interpretation Comments HEMATOCRIT (test code = HCT/ABG) 29 % 33.0-45.0 L POC LACTIC [id number] 15:19:00 Test Item Value Reference Range Interpretation Comments POC LACTIC ACID (test code = 0.5 mmol/l 0.9-1.7 L POCLAC) GLUCOSE [id number] 14:02:00 Test Item Value Reference Range Interpretation Comments GLUCOSE BEDSIDE (test 167 MG/DL 70-110 H [facility] med by certified code = GLUBED) 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 The test result should be correlated into the clinical contex t forinterpretati on. UR CREATININE [id number] 12:23:00 Test Item Value Reference Range Interpretation Comments UR CREATININE 116.2 mg/dL The Reference Range and RANDOM (test code Method Per formance = CREATU) specificationsh ave not been establishe d for this fluid. The test resultshould be correlated into the clinical contex t forinterpretati on. 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[facility] POC ARTERIAL BLOOD [id number] 12:10:00 Test Item Value Reference Range Interpretation Comments POC ARTERIAL BLOOD GAS PH (test 7.291 7.35-7.45 LL code = POCPHA) POC ARTERIAL BLOOD GAS PCO2 59.2 mmHg 35.0-45 HH (test code = JBLMAK4L) POC TCO2 ARTERIAL (test code = 30.7 POCTCO2) POC ARTERIAL BLOOD GAS PO2 (test 137.8 mmHg 80-100.0 H code = ZNWJV7C) POC HCO3 ARTERIAL (test code = 28.8 MMOL/L 22.0-26.0 HH HAOSON3S) POC BASE EXCESS (test code = 2.1 MMOL/L -4.0-4.0 N POCBEA) POC O2 SATURATION (test code = 98.8 % 90-100 N POCO2S) FIO2 (test code = FIO2A) 100 % PaO2/FiO2 (test code = ATY4TQH6) 137.80 mm/Hg ABG DELIVERY (test code = MAAME) CPAP ABG VENT RESP RATE (test code = 25 /MIN RRA) ABG TIDAL VOLUME (test code = 550 ml TVA) ABG PEEP (test code = PEEPA) 6 cmH2O ABG PRESSURE SUPPORT (test code 20 cmH2O = PSABG) ABG TEMPERATURE (test code = 97.3 F TEMPA) ABG SITE (test code = SITEA) Art Line BASIC METABOLIC [id number] 12:10:00 Test Item Value Reference Range Interpretation [...] = POCGLU) 175 MG/DL 70-110 H HEMOGLOBIN [id number] 12:10:00 Test Item Value Reference Range Interpretation Comments HEMOGLOBIN ABG (test code = HGB/ABG) 8.3 G/DL 11.0-15.0 L [id number] 12:10:00 Test Item Value Reference Range Interpretation Comments HEMATOCRIT (test code = HCT/ABG) 24 % 33.0-45.0 L POC LACTIC [id number] 12:10:00 Test Item Value Reference Range Interpretation Comments POC LACTIC ACID (test code = 0.6 mmol/l 0.9-1.7 L POCLAC) POC ARTERIAL BLOOD [id number] 09:48:00 Test Item Value Reference Range Interpretation Comments POC ARTERIAL BLOOD GAS PH (test 7.239 7.35-7.45 LL code = POCPHA) POC ARTERIAL BLOOD GAS PCO2 (test 67.0 mmHg 35.0-45 HH code = ENIIHY8T) POC TCO2 ARTERIAL (test code = 30.7 POCTCO2) POC ARTERIAL BLOOD GAS PO2 (test 90.6 mmHg 80-100.0 N code = ONFTB7F) POC HCO3 ARTERIAL (test code = 28.6 MMOL/L 22.0-26.0 HH LZOUPX6G) POC BASE EXCESS (test code = 1.2 MMOL/L -4.0-4.0 N POCBEA) POC O2 SATURATION (test code = 94.9 % 90-100 N POCO2S) FIO2 (test code = FIO2A) 100 % PaO2/FiO2 (test code = YQY1YWY2) 90.60 mm/Hg ABG DELIVERY (test code = [...] (test code = ALLENS) N/A BASIC METABOLIC [id number] 09:48:00 Test Item Value Reference Range Interpretation [...] = POCGLU) 170 MG/DL 70-110 H HEMOGLOBIN [id number] 09:48:00 Test Item Value Reference Range Interpretation Comments HEMOGLOBIN ABG (test code = HGB/ABG) 7.6 G/DL 11.0-15.0 L [id number] 09:48:00 Test Item Value Reference Range Interpretation Comments HEMATOCRIT (test code = HCT/ABG) 22 % 33.0-45.0 L POC LACTIC [id number] 09:48:00 Test Item Value Reference Range Interpretation Comments POC LACTIC ACID (test code = 0.8 mmol/l 0.9-1.7 L POCLAC) GLUCOSE [id number] 09:10:00 Test Item Value Reference Range Interpretation Comments GLUCOSE BEDSIDE (test 191 MG/DL 70-110 H Perfor med by certified code = GLUBED) 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 THROMBOPLASTIN TIME [id number] 03:45:00 Test Item Value Reference Range Interpretation Comments THROMBOPLASTIN TIME 25.0 Seconds 25.0-39.5 N Therape utic Range: PARTIAL (test code = 50.4 - 88.3 Seconds PTT) Effective 06/28/2018 [id number] 03:45:00 Test Item Value Reference Range Interpretation Comments FIBRINOGEN (test 278 MG/DL 160-450 N Excess admi nistration of code = FIB) anticoagulants and/or FibrinDegradati on Products may af fect Fibrinogen valu e. CBC W/AUTO [id number] 03:36:00 Test Item Value Reference Range Interpretation [...] code NO = MDIFF) POC ARTERIAL BLOOD [id number] 03:22:00 Test Item Value Reference Range Interpretation Comments POC ARTERIAL BLOOD GAS PH (test 7.278 7.35-7.45 LL code = POCPHA) POC ARTERIAL BLOOD GAS PCO2 66.1 mmHg 35.0-45 HH (test code = WVIAOK1Z) POC TCO2 ARTERIAL (test code = 32.8 POCTCO2) POC ARTERIAL BLOOD GAS PO2 (test 70.0 mmHg 80-100.0 L code = TTQUJ6X) POC HCO3 ARTERIAL (test code = 30.8 MMOL/L 22.0-26.0 HH EDLYIW2M) POC BASE EXCESS (test code = 4.1 MMOL/L -4.0-4.0 H POCBEA) POC O2 SATURATION (test code = 90.4 % 90-100 N POCO2S) FIO2 (test code = FIO2A) 60 % PaO2/FiO2 (test code = UPQ5UPJ8) 116.66 mm/Hg ABG PEEP (test code = PEEPA) 5 cmH2O ABG TEMPERATURE (test code = 98.9 F TEMPA) ABG SITE (test code = SITEA) Art Line BASIC METABOLIC [id number] 03:22:00 Test Item Value Reference Range Interpretation [...] = POCGLU) 172 MG/DL 70-110 H HEMOGLOBIN [id number] 03:22:00 Test Item Value Reference Range Interpretation Comments HEMOGLOBIN ABG (test code = HGB/ABG) 7.2 G/DL 11.0-15.0 L [id number] 03:22:00 Test Item Value Reference Range Interpretation Comments HEMATOCRIT (test code = HCT/ABG) 21 % 33.0-45.0 L POC LACTIC [id number] 03:22:00 Test Item Value Reference Range Interpretation Comments POC LACTIC ACID (test code = 0.8 mmol/l 0.9-1.7 L POCLAC) - XR CHEST 1 [id number] 00:00:00 [facility] 1945 Sex: F FAX:Jeffry Pennington MD [phone] [place]: [address] St: ADM FAX: Abdiaziz Christiansen MD [phone] FAX: René Blancas [phone] FAX: Colt Aguillon MD [phone] Name: SAÚL GILES [facility] : 1945 Age/S: 76/F [address] [place] [address] Unit #: [id number] Loc: [place] [address]: René Romero MD Acct: [id number] Dis Date: Status: ADM IN PHONE #: [phone] Exam Date: 12/20/2021 0656 FAX #: [phone] Reason: Cardiac Surgery Post Op EXAMS: CPT CODE: [id number] XR CHEST 1 V 19128 PROCEDURE INFORMATION: Exam: XR Chest Exam date and time: 12/20/2021 5:40 AM Age: 76 years old Clinical indication: Other: Cardiac surgery post op TECHNIQUE: Imaging protocol: Radiologic exam of the chest. Views: 1 view. COMPARISON: CR XR CHEST 1V 12/20/2021 12:08 AM FINDINGS: Tubes, catheters and devices: Right IJ catheter remains in place with [place] terminating in the region of the main [...] signed by: Demian Berumen M.D. CC: Jeffry More MD; Abdiaziz Fuchs MD; René Romero MD; Colt Vail MD Technologist: Xenia Bashir, RT(R); Shell Min RT(R) Trnscrd Date/Time/By: 12/20/2021 (712) : By: [email or web address] Orig Print D/T: S: 12/20/2021 (712) PAGE 1 Signed Report- XR CHEST 1 [id number] 00:00:00 [facility] : 1945 Sex: F FAX:Jeffry Pennington MD [phone] [place]: St: ADM FAX: Abdiaziz Christiansen MD [phone] FAX: Javi Elizondo MD [phone] FAX: Colt Aguillon MD [phone] Name: SAÚL GILES [facility] : 1945 Age/S: 76/F [address] [place] [address] Unit #: [id number] Loc: G.[address] [place] [address] Phys: Javi Elizondo MD Acct: [id number] Dis Date: Status: ADM IN PHONE #: [phone] Exam Date: 12/19/202110 FAX #: [phone] Reason: resp failurre, post MVR EXAMS: CPT CODE: [id number] XR CHEST 1 V 95056 PROCEDUREINFORMATION: Exam: XR Chest Exam date and [...] signed by: Shemar Barnes M.D. CC: Jeffry More MD; Abdiaziz Fuchs MD; Javi Elizondo MD; Colt Vail MD Technologist: MAXIMILIANO Cain)Trnscrd Date/Time/By: 12/20/2021 (141) : By: [email or web address] Orig Print D/T: S: 12/20/2021 (0143) PAGE 1 Signed ReportBASIC METABOLIC [id number] 23:41:00 Test Item Value Reference Range Interpretation [...] code = 9.1 mg/dL 8.0-10.5 N CA) [id number] 23:41:00 Test Item Value Reference Range Interpretation Comments PHOSPHOROUS (test code = PHOS) 3.9 MG/DL 2.5-4.9 N [id number] 23:41:00 Test Item Value Reference Range Interpretation Comments MAGNESIUM (test code = MAG) 2.45 mg/dL 1.80-2.40 H CALCIUM [id number] 23:41:00 Test Item Value Reference Range Interpretation Comments CALCIUM IONIZED (test code = TYREE) 1.16 MMOL/L 1.09-1.30 N CBC W/AUTO [id number] 23:20:00 Test Item Value Reference Range Interpretation [...] code NO = MDIFF) POC ARTERIAL BLOOD [id number] 22:55:00 Test Item Value Reference Range Interpretation Comments POC ARTERIAL BLOOD GAS PH (test 7.301 7.35-7.45 L code = POCPHA) POC ARTERIAL BLOOD GAS PCO2 61.1 mmHg 35.0-45 HH (test code = JHTZUI3J) POC TCO2 ARTERIAL (test code = 32.0 POCTCO2) POC ARTERIAL BLOOD GAS PO2 (test 103.3 mmHg 80-100.0 H code = LTFST9J) POC HCO3 ARTERIAL (test code = 30.1 MMOL/L 22.0-26.0 HH YKAAKB2E) POC BASE EXCESS (test code = 3.7 MMOL/L -4.0-4.0 N POCBEA) POC O2 SATURATION (test code = 97.0 % 90-100 N POCO2S) FIO2 (test code = FIO2A) 60 % PaO2/FiO2 (test code = IGZ2SUQ6) 172.16 mm/Hg ABG DELIVERY (test code = MAAME) BiPAP ABG PEEP (test code = PEEPA) 5 cmH2O ABG TEMPERATURE (test code = 98.8 F TEMPA) ABG SITE (test code = SITEA) Art Line BASIC METABOLIC [id number] 22:55:00 Test Item Value Reference Range Interpretation [...] = POCGLU) 178 MG/DL 70-110 H HEMOGLOBIN [id number] 22:55:00 Test Item Value Reference Range Interpretation Comments HEMOGLOBIN ABG (test code = HGB/ABG) 7.5 G/DL 11.0-15.0 L [id number] 22:55:00 Test Item Value Reference Range Interpretation Comments HEMATOCRIT (test code = HCT/ABG) 22 % 33.0-45.0 L POC LACTIC [id number] 22:55:00 Test Item Value Reference Range Interpretation Comments POC LACTIC ACID (test code = 0.8 mmol/l 0.9-1.7 L POCLAC) POC ARTERIAL BLOOD [id number] 21:08:00 Test Item Value Reference Range Interpretation Comments POC ARTERIAL BLOOD GAS PH (test 7.284 7.35-7.45 LL code = POCPHA) POC ARTERIAL BLOOD GAS PCO2 68.4 mmHg 35.0-45 HH (test code = VWUAGN2D) POC TCO2 ARTERIAL (test code = 34.4 POCTCO2) POC ARTERIAL BLOOD GAS PO2 (test 82.3 mmHg 80-100.0 N code = HSLCZ5Q) POC HCO3 ARTERIAL (test code = 32.4 MMOL/L 22.0-26.0 HH WRTJMM6H) POC BASE EXCESS (test code = 5.7 MMOL/L -4.0-4.0 H POCBEA) POC O2 SATURATION (test code = 93.8 % 90-100 N POCO2S) FIO2 (test code = FIO2A) 60 % PaO2/FiO2 (test code = [id number]) 137.16 mm/Hg ABG PEEP (test code = PEEPA) 5 cmH2O ABG TEMPERATURE (test code = 99 F TEMPA) ABG SITE (test code = SITEA) Art Line BASIC METABOLIC [id number] 21:08:00 Test Item Value Reference Range Interpretation [...] = POCGLU) 163 MG/DL 70-110 H HEMOGLOBIN [id number] 21:08:00 Test Item Value Reference Range Interpretation Comments HEMOGLOBIN ABG (test code = HGB/ABG) 7.9 G/DL 11.0-15.0 L [id number] 21:08:00 Test Item Value Reference Range Interpretation Comments HEMATOCRIT (test code = HCT/ABG) 23 % 33.0-45.0 L POC LACTIC [id number] 21:08:00 Test Item Value Reference Range Interpretation Comments POC LACTIC ACID (test code = 0.7 mmol/l 0.9-1.7 L POCLAC) POC ARTERIAL BLOOD [id number] 20:09:00 Test Item Value Reference Range Interpretation Comments POC ARTERIAL BLOOD GAS PH (test 7.283 7.35-7.45 LL code = POCPHA) POC ARTERIAL BLOOD GAS PCO2 68.1 mmHg 35.0-45 HH (test code = [id number]) POC TCO2 ARTERIAL (test code = 34.2 POCTCO2) POC ARTERIAL BLOOD GAS PO2 (test 78.8 mmHg 80-100.0 L code = OUXTI0C) POC HCO3 ARTERIAL (test code = 32.1 MMOL/L 22.0-26.0 HH [id number]) POC BASE EXCESS (test code = 5.5 MMOL/L -4.0-4.0 H POCBEA) POC O2 SATURATION (test code = 93.0 % 90-100 N POCO2S) FIO2 (test code = FIO2A) 60 % PaO2/FiO2 (test code = [id number]) 131.33 mm/Hg ABG DELIVERY (test code = MAAME) BiPAP ABG PEEP (test code = PEEPA) 578 cmH2O ABG TEMPERATURE (test code = 99 F TEMPA) ABG SITE (test code = SITEA) Art Line BASIC METABOLIC [id number] 20:09:00 Test Item Value Reference Range Interpretation [...] = POCGLU) 171 MG/DL 70-110 H HEMOGLOBIN [id number] 20:09:00 Test Item Value Reference Range Interpretation Comments HEMOGLOBIN ABG (test code = HGB/ABG) 7.8 G/DL 11.0-15.0 L [id number] 20:09:00 Test Item Value Reference Range Interpretation Comments HEMATOCRIT (test code = HCT/ABG) 23 % 33.0-45.0 L POC LACTIC [id number] 20:09:00 Test Item Value Reference Range Interpretation Comments POC LACTIC ACID (test code = 0.8 mmol/l 0.9-1.7 L POCLAC) POC ARTERIAL BLOOD [id number] 19:05:00 Test Item Value Reference Range Interpretation Comments POC ARTERIAL BLOOD GAS PH (test 7.276 7.35-7.45 LL code = POCPHA) POC ARTERIAL BLOOD GAS PCO2 65.7 mmHg 35.0-45 HH (test code = [id number]) POC TCO2 ARTERIAL (test code = 32.6 POCTCO2) POC ARTERIAL BLOOD GAS PO2 (test 203.2 mmHg 80-100.0 HH code = [id number]) POC HCO3 ARTERIAL (test code = 30.6 MMOL/L 22.0-26.0 HH [id number]) POC BASE EXCESS (test code = 3.8 MMOL/L -4.0-4.0 N POCBEA) POC O2 SATURATION (test code = 99.6 % 90-100 N POCO2S) FIO2 (test code = FIO2A) 80 % PaO2/FiO2 (test code = [id number]) 254.00 mm/Hg ABG DELIVERY (test code = MAAME) BiPAP ABG VENT MODE (test code = CPAP/PS MODEA) ABG PRESSURE SUPPORT (test code 14 cmH2O = PSABG) ABG TEMPERATURE (test code = 98.6 F TEMPA) ABG SITE (test code = SITEA) Art Line MARTIN'S TEST (test code = N/A ALLENS) BASIC METABOLIC [id number] 19:05:00 Test Item Value Reference Range Interpretation [...] = POCGLU) 159 MG/DL 70-110 H HEMOGLOBIN [id number] 19:05:00 Test Item Value Reference Range Interpretation Comments HEMOGLOBIN ABG (test code = HGB/ABG) 8.2 G/DL 11.0-15.0 L [id number] 19:05:00 Test Item Value Reference Range Interpretation Comments HEMATOCRIT (test code = HCT/ABG) 24 % 33.0-45.0 L POC LACTIC [id number] 19:05:00 Test Item Value Reference Range Interpretation Comments POC LACTIC ACID (test code = 0.5 mmol/l 0.9-1.7 L POCLAC) POC ARTERIAL BLOOD [id number] 16:53:00 Test Item Value Reference Range Interpretation Comments POC ARTERIAL BLOOD GAS PH (test 7.333 7.35-7.45 L code = POCPHA) POC ARTERIAL BLOOD GAS PCO2 56.4 mmHg 35.0-45 HH (test code = HOGGCB2W) POC TCO2 ARTERIAL (test code = 31.6 POCTCO2) POC ARTERIAL BLOOD GAS PO2 (test 99.2 mmHg 80-100.0 N code = SPEJX9X) POC HCO3 ARTERIAL (test code = 29.9 MMOL/L 22.0-26.0 HH GMUFRI9J) POC BASE EXCESS (test code = 4.0 MMOL/L -4.0-4.0 N POCBEA) POC O2 SATURATION (test code = 97.0 % 90-100 N POCO2S) FIO2 (test code = FIO2A) 50 % PaO2/FiO2 (test code = PDE7RNM7) 198.40 mm/Hg ABG VENT MODE (test code = AC MODEA) ABG PEEP (test code = PEEPA) 5 cmH2O ABG PRESSURE SUPPORT (test code 10 cmH2O = PSABG) ABG SITE (test code = SITEA) Art Line BASIC METABOLIC [id number] 16:53:00 Test Item Value Reference Range Interpretation [...] = POCGLU) 125 MG/DL 70-110 H HEMOGLOBIN [id number] 16:53:00 Test Item Value Reference Range Interpretation Comments HEMOGLOBIN ABG (test code = HGB/ABG) 8.3 G/DL 11.0-15.0 L [id number] 16:53:00 Test Item Value Reference Range Interpretation Comments HEMATOCRIT (test code = HCT/ABG) 24 % 33.0-45.0 L POC LACTIC [id number] 16:53:00 Test Item Value Reference Range Interpretation Comments POC LACTIC ACID (test code = 0.9 mmol/l 0.9-1.7 N POCLAC) LACTIC ACID [id number] 15:09:00 Test Item Value Reference Range Interpretation Comments LACTIC ACID REPEAT (test code = 1.8 mmol/l 0.4-1.9 N LACTR) POC ARTERIAL BLOOD [id number] 14:56:00 Test Item Value Reference Range Interpretation Comments POC ARTERIAL BLOOD GAS PH (test 7.482 7.35-7.45 H code = POCPHA) POC ARTERIAL BLOOD GAS PCO2 37.2 mmHg 35.0-45 N (test code = JAFJEK9H) POC TCO2 ARTERIAL (test code = 29.1 POCTCO2) POC ARTERIAL BLOOD GAS PO2 (test 62.0 mmHg 80-100.0 L code = EQWSO1B) POC HCO3 ARTERIAL (test code = 27.9 MMOL/L 22.0-26.0 H ARCVQP7T) POC BASE EXCESS (test code = 4.3 MMOL/L -4.0-4.0 H POCBEA) POC O2 SATURATION (test code = 93.5 % 90-100 N POCO2S) FIO2 (test code = FIO2A) 40 % PaO2/FiO2 (test code = ESS6NWB0) 155.00 mm/Hg ABG DELIVERY (test code = [...] (test code = N/A ALLENS) BASIC METABOLIC [id number] 14:56:00 Test Item Value Reference Range Interpretation [...] = POCGLU) 126 MG/DL 70-110 H HEMOGLOBIN [id number] 14:56:00 Test Item Value Reference Range Interpretation Comments HEMOGLOBIN ABG (test code = HGB/ABG) 8.9 G/DL 11.0-15.0 L [id number] 14:56:00 Test Item Value Reference Range Interpretation Comments HEMATOCRIT (test code = HCT/ABG) 26 % 33.0-45.0 L POC LACTIC [id number] 14:56:00 Test Item Value Reference Range Interpretation Comments POC LACTIC ACID (test code = 1.6 mmol/l 0.9-1.7 N POCLAC) BASIC METABOLIC [id number] 13:38:00 Test Item Value Reference Range Interpretation [...] 8.0-10.5 N CA) COMMENTS: On arrivalHEPATIC FUNCTION [id number] 13:38:00 Test Item Value Reference Range Interpretation [...] 20-125 N code = ALKP) COMMENTS: On [id number] 13:38:00 Test Item Value Reference Range Interpretation Comments MAGNESIUM (test code = MAG) 2.45 mg/dL 1.80-2.40 H COMMENTS: On arrivalCBC W/AUTO [id number] 13:38:00 Test Item Value Reference Range Interpretation [...] code NO = MDIFF) COMMENTS: On arrivalRBC [id number] 13:38:00 Test Item Value Reference Range Interpretation Comments ANISOCYTOSIS (test code = ANISO) 1+ POLYCHROMASIA (test code = POLC) 1+ MACROCYTOSIS (test code = MACR) 1+ COMMENTS: On arrivalPLT [id number] 13:38:00 Test Item Value Reference Range Interpretation Comments PLATELET ESTIMATE (test code = 76-95 THOUSAND ADEQUATE PLTEST) COMMENTS: On arrivalPOC VENOUS BLOOD [id number] 13:30:00 Test Item Value Reference Range Interpretation Comments POC VENOUS BLOOD GAS PH (test 7.334 7.33-7.45 N code = POCPHV) POC VENOUS BLOOD GAS PCO2 (test 57.2 mmHg 43-47 HH code = YCGHOZ0F) POC VENOUS BLOOD GAS PO2 (test 35.1 mmHG 10-50 N code = GBSLL5T) POC TCO2 VENOUS (test code = 32.2 PVIGER5V) POC HCO3 VENOUS (test code = 30.5 MMOL/L 22-27 H XHDAQQ6B) POC BASE EXCESS VENOUS (test code 4.6 MMOL/L -4.0-4.0 H = POCBEV) POC O2 SATURATION VENOUS (test 61.8 % 60-80 N code = XLXR9NW) VENOUS BLOOD GAS FIO2 (test code 60 % = FIO2V) VBG TIDAL VOLUME (test code = 450 ml TVV) VENOUS BLOOD GAS PEEP (test code 5 cmH2O = PEEPV) VENOUS BLOOD GAS SITE (test code [place] = SITEV) BASIC METABOLIC [id number] 13:30:00 Test Item Value Reference Range Interpretation [...] = POCGLU) 141 MG/DL 70-110 H HEMOGLOBIN [id number] 13:30:00 Test Item Value Reference Range Interpretation Comments HEMOGLOBIN ABG (test code = HGB/ABG) 8.9 G/DL 11.0-15.0 L [id number] 13:30:00 Test Item Value Reference Range Interpretation Comments HEMATOCRIT (test code = HCT/ABG) 26 % 33.0-45.0 L POC LACTIC [id number] 13:30:00 Test Item Value Reference Range Interpretation Comments POC LACTIC ACID (test code = 1.9 mmol/l 0.9-1.7 H POCLAC) LACTIC [id number] 13:29:00 Test Item Value Reference Range Interpretation Comments LACTIC ACID (test code = LACT) 2.2 mmol/L 0.4-1.9 H PROTHROMBIN [id number] 13:22:00 Test Item Value Reference Range Interpretation [...] recurrent infar ct). COMMENTS: On arrivalTHROMBOPLASTIN TIME [id number] 13:22:00 Test Item Value Reference Range Interpretation Comments THROMBOPLASTIN TIME 24.4 Seconds 25.0-39.5 L Therape utic Range: PARTIAL (test code = 50.4 - 88.3 Seconds PTT) Effective 06/28/2018 COMMENTS: On arrivalPOC ARTERIAL BLOOD [id number] 13:02:00 Test Item Value Reference Range Interpretation Comments POC ARTERIAL BLOOD GAS PH (test 7.383 7.35-7.45 N code = POCPHA) POC ARTERIAL BLOOD GAS PCO2 51.0 mmHg 35.0-45 HH (test code = VKKEGO7P) POC TCO2 ARTERIAL (test code = 32.0 POCTCO2) POC ARTERIAL BLOOD GAS PO2 (test 72.1 mmHg 80-100.0 L code = PPVUX9A) POC HCO3 ARTERIAL (test code = 30.4 MMOL/L 22.0-26.0 HH AIIWQM8X) POC BASE EXCESS (test code = 5.3 MMOL/L -4.0-4.0 H POCBEA) POC O2 SATURATION (test code = 94.0 % 90-100 N POCO2S) FIO2 (test code = FIO2A) 50 % PaO2/FiO2 (test code = ZGI1APR3) 144.20 mm/Hg ABG DELIVERY (test code = [...] (test code = N/A ALLENS) BASIC METABOLIC [id number] 13:02:00 Test Item Value Reference Range Interpretation [...] = POCGLU) 144 MG/DL 70-110 H HEMOGLOBIN [id number] 13:02:00 Test Item Value Reference Range Interpretation Comments HEMOGLOBIN ABG (test code = HGB/ABG) 9.2 G/DL 11.0-15.0 L [id number] 13:02:00 Test Item Value Reference Range Interpretation Comments HEMATOCRIT (test code = HCT/ABG) 27 % 33.0-45.0 L POC LACTIC [id number] 13:02:00 Test Item Value Reference Range Interpretation Comments POC LACTIC ACID (test code = 2.0 mmol/l 0.9-1.7 H POCLAC) [id number] 11:33:00 Test Item Value Reference Range Interpretation Comments ACT-ISTAT (test code 115 SEC 74-137 N Perform ed by certified = ACTI) 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[facility] POC ARTERIAL BLOOD [id number] 11:25:00 Test Item Value Reference Range Interpretation Comments POC ARTERIAL BLOOD GAS PH (test 7.472 7.35-7.45 H code = POCPHA) POC ARTERIAL BLOOD GAS PCO2 (test 35.8 mmHg 35.0-45 N code = MGENQS3N) POC TCO2 ARTERIAL (test code = 27.2 POCTCO2) POC ARTERIAL BLOOD GAS PO2 (test 303.1 mmHg 80-100.0 HH code = LQNBE4Q) POC HCO3 ARTERIAL (test code = 26.2 MMOL/L 22.0-26.0 H XWYEQA8D) POC BASE EXCESS (test code = 2.5 MMOL/L -4.0-4.0 N POCBEA) POC O2 SATURATION (test code = 99.9 % 90-100 N POCO2S) BASIC METABOLIC [id number] 11:25:00 Test Item Value Reference Range Interpretation [...] = POCGLU) 168 MG/DL 70-110 H HEMOGLOBIN [id number] 11:25:00 Test Item Value Reference Range Interpretation Comments HEMOGLOBIN ABG (test code = HGB/ABG) 9.0 G/DL 11.0-15.0 L [id number] 11:25:00 Test Item Value Reference Range Interpretation Comments HEMATOCRIT (test code = HCT/ABG) 26 % 33.0-45.0 L POC LACTIC [id number] 11:25:00 Test Item Value Reference Range Interpretation Comments POC LACTIC ACID (test code = 2.3 mmol/l 0.9-1.7 H POCLAC) [id number] 11:05:00 Test Item Value Reference Range Interpretation Comments ACT-ISTAT (test code 491 SEC 74-137 H Perform ed by certified = ACTI) 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[facility] POC ARTERIAL BLOOD [id number] 10:54:00 Test Item Value Reference Range Interpretation Comments POC ARTERIAL BLOOD GAS PH (test 7.467 7.35-7.45 H code = POCPHA) POC ARTERIAL BLOOD GAS PCO2 (test 42.3 mmHg 35.0-45 N code = OUXJJK9B) POC TCO2 ARTERIAL (test code = 31.9 POCTCO2) POC ARTERIAL BLOOD GAS PO2 (test 226.6 mmHg 80-100.0 HH code = PGXGZ6Z) POC HCO3 ARTERIAL (test code = 30.6 MMOL/L 22.0-26.0 HH HESSEO0F) POC BASE EXCESS (test code = 6.2 MMOL/L -4.0-4.0 H POCBEA) POC O2 SATURATION (test code = 99.8 % 90-100 N POCO2S) BASIC METABOLIC [id number] 10:54:00 Test Item Value Reference Range Interpretation [...] = POCGLU) 180 MG/DL 70-110 H HEMOGLOBIN [id number] 10:54:00 Test Item Value Reference Range Interpretation Comments HEMOGLOBIN ABG (test code = HGB/ABG) 8.5 G/DL 11.0-15.0 L [id number] 10:54:00 Test Item Value Reference Range Interpretation Comments HEMATOCRIT (test code = HCT/ABG) 25 % 33.0-45.0 L POC LACTIC [id number] 10:54:00 Test Item Value Reference Range Interpretation Comments POC LACTIC ACID (test code = 1.4 mmol/l 0.9-1.7 N POCLAC) [id number] 10:37:00 Test Item Value Reference Range Interpretation Comments ACT-ISTAT (test code 515 SEC 74-137 H Perform ed by certified = ACTI) 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[facility] POC ARTERIAL BLOOD [id number] 10:23:00 Test Item Value Reference Range Interpretation Comments POC ARTERIAL BLOOD GAS PH (test 7.550 7.35-7.45 HH code = POCPHA) POC ARTERIAL BLOOD GAS PCO2 (test 35.2 mmHg 35.0-45 N code = KTRDDT8U) POC TCO2 ARTERIAL (test code = 31.8 POCTCO2) POC ARTERIAL BLOOD GAS PO2 (test 278.5 mmHg 80-100.0 HH code = YLPWO1I) POC HCO3 ARTERIAL (test code = 30.8 MMOL/L 22.0-26.0 HH YOIOMS9M) POC BASE EXCESS (test code = 7.9 MMOL/L -4.0-4.0 H POCBEA) POC O2 SATURATION (test code = 99.9 % 90-100 N POCO2S) BASIC METABOLIC [id number] 10:23:00 Test Item Value Reference Range Interpretation [...] = POCGLU) 197 MG/DL 70-110 H HEMOGLOBIN [id number] 10:23:00 Test Item Value Reference Range Interpretation Comments HEMOGLOBIN ABG (test code = HGB/ABG) 9.1 G/DL 11.0-15.0 L [id number] 10:23:00 Test Item Value Reference Range Interpretation Comments HEMATOCRIT (test code = HCT/ABG) 27 % 33.0-45.0 L POC LACTIC [id number] 10:23:00 Test Item Value Reference Range Interpretation Comments POC LACTIC ACID (test code = 1.1 mmol/l 0.9-1.7 N POCLAC) [id number] 09:56:00 Test Item Value Reference Range Interpretation Comments ACT-ISTAT (test code 642 SEC 74-137 H Perform ed by certified = ACTI) 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[facility] POC ARTERIAL BLOOD [id number] 09:52:00 Test Item Value Reference Range Interpretation Comments POC ARTERIAL BLOOD GAS PH (test 7.532 7.35-7.45 HH code = POCPHA) POC ARTERIAL BLOOD GAS PCO2 (test 36.8 mmHg 35.0-45 N code = MHCNDO7X) POC TCO2 ARTERIAL (test code = 32.0 POCTCO2) POC ARTERIAL BLOOD GAS PO2 (test 427.8 mmHg 80-100.0 HH code = CXQRG9Q) POC HCO3 ARTERIAL (test code = 30.8 MMOL/L 22.0-26.0 HH PWRBCJ0T) POC BASE EXCESS (test code = 7.7 MMOL/L -4.0-4.0 H POCBEA) POC O2 SATURATION (test code = 100.0 % 90-100 N POCO2S) BASIC METABOLIC [id number] 09:52:00 Test Item Value Reference Range Interpretation [...] = POCGLU) 193 MG/DL 70-110 H HEMOGLOBIN [id number] 09:52:00 Test Item Value Reference Range Interpretation Comments HEMOGLOBIN ABG (test code = HGB/ABG) 9.2 G/DL 11.0-15.0 L [id number] 09:52:00 Test Item Value Reference Range Interpretation Comments HEMATOCRIT (test code = HCT/ABG) 27 % 33.0-45.0 L POC LACTIC [id number] 09:52:00 Test Item Value Reference Range Interpretation Comments POC LACTIC ACID (test code = 1.3 mmol/l 0.9-1.7 N POCLAC) [id number] 09:37:00 Test Item Value Reference Range Interpretation Comments ACT-ISTAT (test code 746 SEC 74-137 H Perform ed by certified = ACTI) 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[facility] POC ARTERIAL BLOOD [id number] 09:18:00 Test Item Value Reference Range Interpretation Comments POC ARTERIAL BLOOD GAS PH (test 7.473 7.35-7.45 H code = POCPHA) POC ARTERIAL BLOOD GAS PCO2 (test 41.7 mmHg 35.0-45 N code = QASAJH5Q) POC TCO2 ARTERIAL (test code = 31.9 POCTCO2) POC ARTERIAL BLOOD GAS PO2 (test 447.6 mmHg 80-100.0 HH code = HLXIV4L) POC HCO3 ARTERIAL (test code = 30.6 MMOL/L 22.0-26.0 HH GVWUYM5K) POC BASE EXCESS (test code = 6.4 MMOL/L -4.0-4.0 H POCBEA) POC O2 SATURATION (test code = 100.0 % 90-100 N POCO2S) BASIC METABOLIC [id number] 09:18:00 Test Item Value Reference Range Interpretation [...] = POCGLU) 208 MG/DL 70-110 H HEMOGLOBIN [id number] 09:18:00 Test Item Value Reference Range Interpretation Comments HEMOGLOBIN ABG (test code = HGB/ABG) 9.2 G/DL 11.0-15.0 L [id number] 09:18:00 Test Item Value Reference Range Interpretation Comments HEMATOCRIT (test code = HCT/ABG) 27 % 33.0-45.0 L POC LACTIC [id number] 09:18:00 Test Item Value Reference Range Interpretation Comments POC LACTIC ACID (test code = 1.2 mmol/l 0.9-1.7 N POCLAC) [id number] 08:57:00 Test Item Value Reference Range Interpretation Comments ACT-ISTAT (test code 740 SEC 74-137 H Perform ed by certified = ACTI) 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[facility] POC ARTERIAL BLOOD [id number] 08:47:00 Test Item Value Reference Range Interpretation Comments POC ARTERIAL BLOOD GAS PH (test 7.421 7.35-7.45 N code = POCPHA) POC ARTERIAL BLOOD GAS PCO2 (test 42.1 mmHg 35.0-45 N code = MOTARH1O) POC TCO2 ARTERIAL (test code = 28.7 POCTCO2) POC ARTERIAL BLOOD GAS PO2 (test 349.7 mmHg 80-100.0 HH code = GCLNX8V) POC HCO3 ARTERIAL (test code = 27.4 MMOL/L 22.0-26.0 H OXOLZX1A) POC BASE EXCESS (test code = 2.6 MMOL/L -4.0-4.0 N POCBEA) POC O2 SATURATION (test code = 99.9 % 90-100 N POCO2S) BASIC METABOLIC [id number] 08:47:00 Test Item Value Reference Range Interpretation [...] = POCGLU) 244 MG/DL 70-110 H HEMOGLOBIN [id number] 08:47:00 Test Item Value Reference Range Interpretation Comments HEMOGLOBIN ABG (test code = 10.3 G/DL 11.0-15.0 L HGB/ABG) [id number] 08:47:00 Test Item Value Reference Range Interpretation Comments HEMATOCRIT (test code = HCT/ABG) 30 % 33.0-45.0 L POC LACTIC [id number] 08:47:00 Test Item Value Reference Range Interpretation Comments POC LACTIC ACID (test code = 1.1 mmol/l 0.9-1.7 N POCLAC) CBC W/AUTO [id number] 08:23:00 Test Item Value Reference Range Interpretation [...] DIFF REQUIRED (test code NO = MDIFF) [id number] 07:46:00 Test Item Value Reference Range Interpretation Comments ACT-ISTAT (test code 138 SEC 74-137 H Perform ed by certified = ACTI) 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[facility] POC ARTERIAL BLOOD [id number] 07:37:00 Test Item Value Reference Range Interpretation Comments POC ARTERIAL BLOOD GAS PH (test 7.439 7.35-7.45 N code = POCPHA) POC ARTERIAL BLOOD GAS PCO2 (test 38.6 mmHg 35.0-45 N code = WYSARA9H) POC TCO2 ARTERIAL (test code = 27.3 POCTCO2) POC ARTERIAL BLOOD GAS PO2 (test 482.6 mmHg 80-100.0 HH code = JCUIG5Q) POC HCO3 ARTERIAL (test code = 26.2 MMOL/L 22.0-26.0 H YPJWEQ9Y) POC BASE EXCESS (test code = 1.9 MMOL/L -4.0-4.0 N POCBEA) POC O2 SATURATION (test code = 100.0 % 90-100 N POCO2S) BASIC METABOLIC [id number] 07:37:00 Test Item Value Reference Range Interpretation [...] = POCGLU) 257 MG/DL 70-110 H HEMOGLOBIN [id number] 07:37:00 Test Item Value Reference Range Interpretation Comments HEMOGLOBIN ABG (test code = HGB/ABG) 9.5 G/DL 11.0-15.0 L [id number] 07:37:00 Test Item Value Reference Range Interpretation Comments HEMATOCRIT (test code = HCT/ABG) 28 % 33.0-45.0 L POC LACTIC [id number] 07:37:00 Test Item Value Reference Range Interpretation Comments POC LACTIC ACID (test code = 2.0 mmol/l 0.9-1.7 H POCLAC) COMPREHENSIVE METABOLIC [id number] 07:20:00 Test Item Value Reference Range Interpretation [...] TOTAL (test code = ALKP) THROMBOPLASTIN TIME [id number] 05:41:00 Test Item Value Reference Range Interpretation Comments THROMBOPLASTIN TIME 31.1 Seconds 25.0-39.5 N Therape utic Range: PARTIAL (test code = 50.4 - 88.3 Seconds PTT) Effective 06/28/2018 PROTHROMBIN [id number] 05:28:00 Test Item Value Reference Range Interpretation [...] recurrent infar ct). - XR CHEST 1 [id number] 00:00:00 [facility] : 1945 Sex: F FAX:Jeffry Pennington MD [phone] [place]: St: ADM FAX: Abdiaziz Christiansen MD [phone] FAX: René Blancas [phone] FAX: Colt Aguillon MD [phone] Name: SAÚL GILES [facility] : 1945 Age/S: 76/F [address] [place] [address] Unit #: [id number] Loc: G.[address] [place] [address] Phys: René Romero MD Acct: [id number] Dis Date: Status: ADM IN PHONE #: [phone] Exam Date: 12/19/2021 1336 FAX #: [phone] Reason: SURGICAL COUNT EXAMS: CPT CODE: [id number] XR CHEST 1 V 36517 PROCEDURE INFORMATION: Exam: XR Chest Exam date [...] left multi lead pacemaker. The right IJ [place]uanita catheter tip projects at the level of [...] Signed Report (CONTINUED) FAX: Jeffry Pennington MD [phone] [place]: St: ADM FAX: Abdiaziz Christiansen MD [phone] FAX: René Blancas [phone] FAX: Colt Aguillon MD [phone] Name: SAÚL GILES [facility] : 1945 Age/S: 76/F [address] [place] [address] Unit #: [id number] Loc: [address] [place] [address] Phys: René Romero MD Acct: [id number] Dis Date: Status: ADM IN PHONE #: [phone] Exam Date: 12/19/2021 1336 FAX #: [phone] Reason: SURGICAL COUNT EXAMS: CPT CODE: [id number] XR CHEST 1 V 46602 (Continued) at 1402 Reported and signed by: Jonathan Calles M.D. CC: Jeffry More MD; Abdiaziz Fuchs MD; René Romero MD; Colt Vail MD Technologist: RT Osman(Marla) Trnscreyes Date/Time/By: 12/19/2021 (1401) : By: [email or web address] Orig Pr int D/T: S: 12/19/2021 (3923) PAGE 2 Signed Report- XR CHEST 1 [id number] [facility] 1945 Sex: F FAX:Jeffry Pennington MD [phone] [place]: St: [facility] FAX: Abdiaziz Christiansen MD [phone] FAX: René Blancas [phone] FAX: Colt Aguillon MD [phone] Name: SAÚL GILES [facility] : 1945 Age/S: 76/F [address] [place] [address] Unit #: [id number] Loc: G.2201 [place] [address] Phys: René Romero MD Acct: [id number] Dis Date: Status: ADM IN PHONE #: [phone] Exam Date: 12/19/2021 1315 FAX #: [phone] Reason: Cardiac Surgery Post Op EXAMS: CPT CODE: [id number] XR CHEST 1 V 46470 PROCEDURE INFORMATION: Exam: XR Chest Exam date [...] of the sternoclavicular joints. There is a [place] catheter in place. Lungs:There are patchy opacities [...] Increased interstitial markings, which couldrepresent pulmonary edema. [id number] Reported and signed by: Syeda Leblanc M.D. 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[facility] GLUCOSE [id number] 16:49:00 Test Item Value Reference Range Interpretation Comments GLUCOSE BEDSIDE (test 226 MG/DL 70-110 H Perfor med by certified code = GLUBED) 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[facility] GLUCOSE [id number] 13:03:00 Test Item Value Reference Range Interpretation Comments GLUCOSE BEDSIDE (test 148 MG/DL 70-110 H Perfor med by certified code = GLUBED) 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[facility] GLUCOSE [id number] 11:18:00 Test Item Value Reference Range Interpretation Comments GLUCOSE BEDSIDE (test 153 MG/DL 70-110 H Perfor med by certified code = GLUBED) 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 THROMBOPLASTIN TIME [id number] 04:51:00 Test Item Value Reference Range Interpretation Comments THROMBOPLASTIN TIME 31.0 Seconds 25.0-39.5 N Therape utic Range: PARTIAL (test code = 50.4 - 88.3 Seconds PTT) Effective 06/28/2018 COMPREHENSIVE METABOLIC [id number] 04:47:00 Test Item Value Reference Range Interpretation [...] RELATEDTO RISK LEVELS RECOMMENDED BY THE NATL.HEART, DAHLIA G, AND BLOOD INST. HDL CHOLESTEROL 33.2 mg/dL 39-96 L (test code = HDL) LIPOPROTEIN LDL 66.3 mg/dL 0-100 N <100 OPTIMAL 100-129 (test code = LDL) NEAR OPTIM AL/ABOVE [id number] HIGH>AC=962 SOUMYA Y HIGH*Guidelines provided by the National [employer] ter[employer] Adult Treatment Panel III URINALYSIS [id number] 03:32:00 Test Item Value Reference Range Interpretation [...] /LPF NONE SEEN COVID 19 Asymptomatic IH [id number] 20:44:00 Test Item Value Reference Range Interpretation [...] moderate, high or waivedcomplexit y tests. 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[facility] [id number] 11:10:00 Test Item Value Reference Range Interpretation Comments ACT-ISTAT (test code 265 SEC 74-137 H Perform ed by certified = ACTI) 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[facility] [id number] 10:56:00 Test Item Value Reference Range Interpretation Comments ACT-ISTAT (test code 335 SEC 74-137 H Perform ed by certified = ACTI) 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[facility] GLUCOSE [id number] 08:08:00 Test Item Value Reference Range Interpretation Comments GLUCOSE BEDSIDE (test 164 MG/DL 70-110 H Perfor med by certified code = GLUBED) 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[facility] - CT CHEST W/O [id number] 00:00:00 [facility] 1945 Sex: F Name: SAÚL GILES [facility] : 1945 Age/S: 76 / F [address] [place] [address] Bl Unit #: [id number] Loc: [place] [address] Phys: Kena Macedo CHILD WATCH ATTENDANT Acct: [id number] Dis Date: Status: ADM INPHONE #: [phone] Exam Date: 12/17/2021 1734 FAX #: [phone] Reason: Cardiac Surgery Pre Op Report Has Been Amended EXAMS: CPT CODE: [id number] CT CHEST W/O CONTRAST 17101 Addendum - 12/17/2021 SIGNED 12/17/[address]: [id number]/CTCHESTWO There is a 4 mm noncalcified [...] 1 Signed Report (CONTINUED) Name: SAÚL GILES [facility] James McconnellsDOB: 1945 Age/S: 76 / F [address] [place] [address] Blvd Unit #: [id number] Loc: [place] [address] Phys: Kena Arboleda CHILD WATCH ATTENDANT Acct: [id number] Dis Date: Status: ADM IN PHONE #: [phone] Exam Date: 12/17/20211733 FAX #: [phone] Reason: Cardiac Surgery Pre Op Report Has Been Amended EXAMS: CPT CODE: [id number] CT CHEST W/O CONTRAST 61186 (Continued) Lungs: There is atelectasis withinthe lungs. [...] and signed by:Jose Rankin D.O. CC: Jeffry More MD; Abdiaziz Fuchs MD; Kena Macedo NP; Colt Vail MD Technologist:David Sanders, RT(R)(CT) CTDI: DLP: Trnscb Date/Time: 12/17/2021 (1847) [email or web address] Orig Print D/T: S: 12/17/2021 (1848) PAGE 2 Signed Report- DUP EXTRACRANIAL [id number] 00:00:00 [facility] 1945 Sex: F Name: SAÚL GILES [facility] : 1945 Age/S: 76 / F [address] [place] [address] Unit #: [id number] Loc: [place] [address] Phys: Kena Macedo NP Acct: [id number] Dis Date: Status: ADM IN PHONE #: [phone] Exam Date: 12/17/20211846 FAX #: [phone] Reason: Cardiac Surgery Pre OpEXAMS: CPT CODE: [id number] DUP EXTRACRANIAL OLLIE 94425 PROCEDURE INFORMATION: Exam: US Duplex Bilateral Extracranial [...] Center : 1945 Age/S: 76 / F [address] [place] [address] Unit #: [id number] Loc: [place] [address] Phys: Kena Macedo CHILD WATCH ATTENDANT Acct: [id number] Dis Date: Status: ADM IN PHONE #: [phone] Exam Date: 2021 184 FAX #: [phone] Reason: Cardiac Surgery Pre Op EXAMS: CPT CODE: [id number] DUP EXTRACRANIAL OLLIE 66144 (Continued) CC: Jeffry More MD; Abdiaziz Fuchs MD; Kena Macedo CHILD WATCH ATTENDANT; Colt Vail MD Technologist: Anu Denis Trnscb Date/Time: 12/17/2021 (1901) [email or web address] Orig Print D/T:S: 12/17/2021 (1902) Probe: PAGE 2 Signed Report- DUP VEIN [id number] 00:00:00 [facility] 1945 Sex: F Name: SAÚL GILES [facility] : 1945 Age/S: 76 / F [address] [place] [address] Unit #: [id number] Loc: [place] [address] Phys: Kena Macedo NP Acct: [id number] Dis Date: Status: ADM IN PHONE #: [phone] Exam Date: 12/17/2021 184 FAX #: [phone] Reason: Cardiac Surgery Pre Op EXAMS: CPT CODE: [id number] DUP VEIN OLLIE 09089 PROCEDURE INFORMATION: Exam: US Duplex Lower Extremity [...] signed by: Anoop Lilly M.D. CC: Jeffry More MD; Abdiaziz Fuchs MD; Kena Macedo CHILD WATCH ATTENDANT; Colt Vail MD Technologist: Anu Denis [facility] Date/Time: 12/17/2021 (2001) [email or web address] Orig Print D/T: [...] (test code NO = MDIFF) BASIC METABOLIC [id number] 13:35:00 Test Item Value Reference Range Interpretation [...] = 9.6 mg/dL 8.0-10.5 N CA) PROTHROMBIN [id number] 13:09:00 Test Item Value Reference Range Interpretation [...] risk), 2. 5 - 3.5 Presence of Sahil pus Anticoagulant o r Antiphospholipi d Antibodies, Pre vention of systemic emb olism - Acute Myocardia l Infarction (to prevent recurrent infar ct). - XR CHEST 2 [id number] 00:00:00 [facility] : 1945 Sex: F FAX:Abdiaziz Christiansen MD [phone] [place]: St: PRE FAX: Colt Aguillon MD [phone] Name: SAÚL GILES [facility] : 1945 Age/S: 76/F [address] [place] [address] Unit #: [id number] Loc: [place] [address] Phys: Colt Vail MD Acct: [id number] Dis Date: Status: PRE [facility] PHONE #: [phone] Exam Date: 12/12/2021 1333 FAX #: [phone] Reason: PREOP EXAMS: CPT CODE: [id number] XR CHEST 2 V [id number] INFORMATION: Exam: XR Chest Exam date and [...] Abdiaziz Fuchs MD; Colt Vail MD Technologist: Kassidy Casarez RT(R) Trnscrd Date/Time/By: 12/12/2021 (1530) : By: [email or web address] Orig Print D/T:S: 12/12/2021 (6151) PAGE 1 Signed Report Notes Date/Time Note Provider Source 2022-03-04 21:47:00-00:[address] [facility] ([facility] Hospitalist Discharge Summary REPORT#:[id number] REPORT STATUS: Signed DATE:03/04/22 TIME: 2146 PATIENT: SAÚL GILES UNIT #: [id number] ROOM/BED: [place] [address] : [birth year] AGE: 76 SEX: F ATTEND: Shaun Landry MD ADM AUTHOR: Meryl Rosa MD * ALL edits or amendments must be made on the [employer]/computer document * General Information Date of admission: Observation Start Date: Date of admission: 01/07/22 Discharge date: 01/21/22 Admission diagnosis: general weakness CAD - post CABG CHF HTN DM HLD afib RONA morbid obesity Discharge diagnosis: general weakness CAD - post CABG CHF HTN DM HLD afib RONA morbid obesity Hospital course: CAD -- cardiology consult CV surgeon consult CABG --post procedure ASA/lipitor Echocardiogram showed EF 55 to 59% edema --lasix /zaroxolyn -- monitor renal function weakness --PT/OT as rehab afib -- rate control -- xarelto/amiodarone /metoprolol HTN-- metoprolol/norvasc DM-- on lantus -- sliding scale HLD-- on lipitor RONA--cpap as nigth DVTP -- xarelto 01/09-- she feel tire after PT -- complaint of sob at night --bipap at night -- continue lasix -- replace K 01/10 Continue bowel regimen, adjust as needed i f no results. Replace K. 01/11 +BM. Replace K+, discussed with RN to give PRN K on - she complaint of tire - not sleep well last night -- continue bipap at night -- continue PT/OT 01/13 -- she sit on the chair . 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 less sob -- continue PT/OT 01/16- she is doing well with PT/OT 01/17- she is tire -- no cp no sob -- continue PT/OT 01/18- she complaint of sob -- CXR -- Progression of pulmonary edema. -- lasix change to iv -- continue PT/OT 01/19 Continue care in rehab. 01/21-- she get better -- go home today she is discharged home . she will follow up with pcp in 2 weeks Consultants: cardiology, cardiovascular surgery, hospitalist, nephrology Free Text DxA P Notes Free text DxA P notes: general weakness CAD - post CABG CHF HTN DM HLD afib RONA morbid obesity CAD -- cardiology consult CV surgeon consult CABG --post procedure ASA/lipitor Echocardiogram showed EF 55 to 59% edema --lasix /zaroxolyn -- monitor renal function weakness --PT/OT as rehab afib -- rate control -- xarelto/amiodarone /metoprolol HTN-- metoprolol/norvasc DM-- on lantus -- sliding scale HLD-- on lipitor RONA--cpap as nigth DVTP -- xarelto 01/09-- she feel tire after PT -- complaint of sob at night --bipap at night -- continue lasix -- replace K 01/10 Continue bowel regimen, adjust as needed i f no results. Replace K. 01/11 +BM. Replace K+, discussed with RN to give PRN K on MAY. 01/12- she complaint of tire - not sleep well last night -- continue bipap at night -- continue PT/OT 01/13 -- she sit on the chair . 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 less sob -- continue PT/OT 01/16- she is doing well with PT/OT 01/17- she is tire -- no cp no sob -- continue PT/OT 01/18- she complaint of sob -- CXR -- Progression of pulmonary edema. -- lasix change to iv -- continue PT/OT 01/19 Continue care in rehab. 01/21-- she get better -- go home today note delay entry due to meditech down yesterday Med Rec Med Rec Discharge meds: Stop taking the following medications: IPRATROPIUM/ALBUTEROL (DUONEB 0.5 MG-3/3 ML) 0.5 MG-3 MG (2.5 MG BASE)/3 ML NEB 3 MILLILITERS NEB RT - EVERY 6 HOURS. Qty = 60 CLOPIDOGREL (PLAVIX) 75 MG TAB 75 MILLIGRAM ORAL DAILY. Qty = 30 FERROUS SULFATE (FEOSOL) 325 MG (65 MG IRON) TAB 325 MILLIGRAM ORAL DAILY. Qty = 30 AMIODARONE (PACERONE) 200 MG TAB 200 MILLIGRAM ORAL TWICE DAILY. Qty = 60 ATORVASTATIN (LIPITOR) 40 MG TAB 40 MILLIGRAM ORAL 2100 Qty = 30 ASPIRIN (ASPIRIN) 81 MG TAB.CHEW 81 MILLIGRAM ORAL DAILY. Qty = 30 FUROSEMIDE (LASIX) 40 MG TAB 40 MILLIGRAM ORAL DAILY. Qty = 30 METOLAZONE (ZAROXOLYN) 5 MG TAB 5 MILLIGRAM ORAL DAILY. Qty = 30 acetaZOLAMIDE (DIAMOX) 250 MG TAB 250 MILLIGRAM ORAL DAILY. Qty = 30 DOCUSATE SODIUM (COLACE 50 MG/5 ML) 50 MG/5 ML L IQUID 100 MILLIGRAM ORAL TWICE DAILY. Qty = [address] (PROTONIX) 40 MG TAB.DR 40 MILLIGRAM ORAL DAILY. Qty = 30 METOPROLOL TARTRATE (LOPRESSOR) 25 MG TAB 25 MILLIGRAM ORAL EVERY 12 HOURS. Qty = 30 Continue taking these medications: INSULIN GLARGINE (LANTUS) 100 UNIT/ML VIAL 20 UNIT SUBCUTANEOUS BEDTIME. Qty = 10 INSULIN GLARGINE (LANTUS) 100 UNIT/ML VIAL 30 UNIT SUBCUTANEOUS DAILY. Qty = 10 Start taking the following new medications: CLOPIDOGREL (PLAVIX) 75 MG TAB 75 MILLIGRAM ORAL DAILY. Qty = 30 No Refills AMIODARONE (PACERONE) 200 MG TAB 200 MILLIGRAM ORAL DAILY. Qty = 30 No Refills ATORVASTATIN (LIPITOR) 40 MG TAB 40 MILLIGRAM ORAL 2100 Qty = 30 No Refills METOPROLOL TARTRATE (LOPRESSOR) 25 MG TAB 25 MILLIGRAM ORAL EVERY 12 HOURS. Qty = 60 No Refills LISINOPRIL (ZESTRIL) 2.5 MG TAB 2.5 MILLIGRAM ORAL DAILY. Qty = 30 No Refills ASPIRIN EC (ECOTRIN) 81 MG TAB.EC 81 MILLIGRAM ORAL DAILY. Qty = 30 No Refills acetaZOLAMIDE (DIAMOX) 250 MG TAB 500 MILLIGRAM ORAL EVERY 12 HOURS. Qty = 60 No Refills FUROSEMIDE (LASIX) 40 MG TAB 40 MILLIGRAM ORAL TWICE DAILY. Qty = 60 No Refills POTASSIUM CHLORIDE ER (KLOR-CON M20) 20 MEQ TAB. SR 20 MILLIEQUIVALENT ORAL TWICE DAILY. Qty = 60 No Refills Instructions: TAKE WITH FOOD Objective Head/Eyes: atraumatic, normal conjunctiva/sclera , normal eyelids/periorb. 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, 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, CNII-XII intact, normal speech, no motor deficits, no sensory deficits Skin: dry, intact Discharge Instructions PCP Discharge to: Home Health wPlan of Care Additional Discharge Routines: PCP Follow-Up, Co nsultant Follow-Up Diet: Diabetic Follow-up Appointments PCP follow-up: PCP: Abdiaziz Fuchs MD PCP follow up timeframe: In 1-2 weeks Consulting provider 1: Provider 1: René Romero MD Electronically Signed by Meryl Rosa MD on 2 at [address] [facility] #:[id number] END OF REPORT 2022-01-30 07:23:00-00:00 [id number] [place] [address] PATIENT NAME: SAÚL GILES ADMIT DATE: 01/07/22 ACCOUNT NO: [id number] ROOM NO: [facility] AGE: 76 REPORT TYPE: 360 - QUERY RESPONSE DOCUMENT SEX: F ADMITTING PHYSICIAN:Jesus Landry MD ATTENDING PHYSICIAN:Jesus Landry MD Provider Query QUERY TEXT: Condition General 360MD Query related questions should be directed to: [please clarify if patient admitted to rehab wit h hypoxic respiratory failure (please specify if acute, c hronic, other) patient with respiratory insufficiency on admiss ion to rehab some other more appropriate diagnosis.] The patient's Clinical Indicators include: query response 01/29 "patient recovering from hy poxemic respiratory failure on rehab" h and p 01/08; IOPOC 01/08; rehab progress notes 01/09-01/20 respiratory insufficiency-wean O2 PAS 01/07; IOPOC 01/08; rehab h and p 01/08; raoul ab progress notes 01/09-01/20 active comorbid conditions: hy poxic respiratory failure on BiPap Options provided: -- Respond - Create new note now -- Dismiss - Not applicable / Not valid -- Dismiss - Clinically unable to determine / Un known -- Assign to another provider QUERY RESPONSE: patient with prior respiratory insufficiency on admission to rehab-monitored on rehab Query created by: Dianelys Bruce on 01/30/2022 7:20 AM at 0723 PATIENT NAME: SAÚL GILES 663 2022-01-29 09:36:00-00:00 [id number] [place] [address] PATIENT NAME: SAÚL GILES ADMIT DATE: 01/07/22 ACCOUNT NO: [id number] ROOM NO: G.508 AGE: 76 REPORT TYPE: 360 - QUERY RESPONSE DOCUMENT SEX: F ADMITTING PHYSICIAN:Jesus Landry MD ATTENDING PHYSICIAN:Jesus Landry MD Provider Query QUERY TEXT: Condition Respiratory 360MD Query related questions should be directed to: Based on your clinical judgment, can you provide the known or suspected condition(s) that represent(s) the clinical indicators listed below? The patient's Clinical Indicators include: h and p 01/08; IOPOC 01/08; rehab progress notes 01/09-01/20 respiratory insufficiency-wean O2 PAS 01/07; IOPOC 01/08; rehab h and p 01/08; raoul ab progress notes 01/09-01/20 active comorbid conditions: hy poxic respiratory failure on BiPap Options provided: -- Respiratory insufficiency, Please specify the acuity (i.e., acute, acute on chronic, chronic). -- Respiratory failure with hypoxemia, Please sp ecify the acuity (i.e., acute, acute on chronic, chronic) . -- Respiratory failure with hypercapnia, Please specify the acuity (i.e., acute, acute on chronic, chronic). -- Respiratory failure, Please specify the acuit y (i.e., acute, acute on chronic, chronic). -- Cardiopulmonary arrest -- ARDS -- Other - I will add my own diagnosis -- Dismiss - Not applicable / Not valid -- Dismiss - Clinically unable to determine / Un known -- Assign to another provider QUERY RESPONSE: PATIENT RECOVERING FORM HYPOXIC RESPIRATORY FAIL UE ON REHAB. Query created by: Dianelys Bruce on 01/29/2022 8:41 AM QUERY TEXT: Clarification Conflicting Diagnosis Procedure 36 0MD Query related questions should be directed to: Based on your clinical judgement, please clarify the following conflicting documentation: [please clarify if patient was never a smoker ; patient with past history of smoking; patient with present smoking habit.] The patient's Clinical Indicators include: rehab h and p 01/08; adult general consult 01/08 never smoker cardiology consult 01/08; cardiology progress no ny 01/09 smoker cardiothoracic surgery progress notes 01/08 form er smoker Options provided: -- Respond - Create new note now -- Dismiss - Not applicable / Not valid -- Dismiss - Clinically unable to determine / Un known -- Assign to another provider QUERY RESPONSE: Former smoker Query created by: Dianelys Bruce on 01/29/2022 8:46 AM at 0936 PATIENT NAME: SAÚL GILES 663 2022-01-22 10:33:00-00:00 [facility] REPORT#:[id number] REPORT STATUS: Signed DATE:01/22/22 TIME: 1033 PATIENT: SAÚL GILES UNIT #: [id number] ROOM[place]ED: [facility] : 43 AGE: 76 SEX: F ATTEND: Shaun Landry MD ADM AUTHOR: Isabella Clemens ACNP * ALL edits or amendments must be made on the [employer]/computer document * Subjective Patient reports: No: complaints. Comments: States she is excited to go home. Free Text Subj Notes Free Text Subj Notes: Date of service: 01/21/2022 Objective General VS/I O: Vital signs reviewed Medications: MAR not accessible Physical Exam General appearance: obese, a lert, awake, oriented, no acute distress, pleasant, conversational Head/Eyes: PERRLA Neck: no JVD Cardiovascular: CV assessment: regular rate and rhythm Respiratory: decreased breath sounds, no distres s Abdomen: soft, non-tender, normal bowel sounds, no distention Genitourinary: no flank pain, no urinary cathete r Upper extremity: UE assessment: no edema Lower extremity: LE assessment: edema (1 + pitting edema) Musculoskeletal: normal inspection 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, 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, normal speech Skin: poor skin turgor Psychiatry: normal affect, normal mood Results Findings/Data: Labs not available Diagnosis, Assessment Plan Problem List/A P: 1. CAD (coronary artery disease) 2. Severe mitral regurgitation 3. Chronic a-fib 4. S/P CABG x 1 5. S/P MVR (mitral valve replacement) Plan discussed with: patient, nurse Free Text DxA P Notes Free Text DxA P Notes: Ms Giles is a 76 y/o female with PMHx of CAD, HL D, T2DM, RONA (CPAP at home), smoker, Crohn's disease, AF s/p ablation s/p PPM, and chronic lymphedema. She is recovering from CABG and MVR. She is transferred to [facility] for inpatient rehabilitation. Cardiolgy is consulted f or continuity of cardiac-related care. 1. CAD s/p CABG, MVR, and ILAA. On Plavix, aspirin, beta-delma, statin 2. Chronic AF s/p PPM/ablation. had ILAA during bypass no need for AC keep K >4 and Mag above 2 continue amiodarone, assa, plavix, bb 3. Chronic Diastolic CHF diurectics per Nephrology on NC 2L repeat echo shows LVEF 50-54% RV dilated with severely increased pressures, MV bioprosthesis- mild to moderate stenosis, mild t o moderate TR 4. Hypertension - normotensive BP range: 114-147/66-82 (82.1-103.3) mmHg continue bb/cherelle 5. Hyperlipidemia Continue statins. 6. MARCELLO - resolved per Nephrology Discharging home today Patient follow-up with Dr. Vail in 1-2 weeks at 1035 Electronically Signed by Aruna Fortune MD on at 1439 RPT #:[id number] END OF REPORT 2022-01-22 10:30:00-00:00 [facility] Note REPORT#:[id number] REPORT STATUS: Signed DATE:01/22/22 TIME: 1030 PATIENT: SAÚL GILES UNIT #: [id number] ROOM/BED: [place] [address] : 43 AGE: 76 SEX: F ATTEND: Shaun Landry MD ADM AUTHOR: Meryl Rosa MD * ALL edits or amendments must be made on the [employer]/computer document * Subjective Chief complaint: she get better. she will go home today Review of Systems Constitutional: Denies: fever, lethargy. Respiratory: Denies: productive cough (sputum), SOB, wheezing . Cardiovascular: Denies: chest pain, DOUGLASS (dyspnea on exertion), e ana. GI: Denies: abdominal pain, nausea, vomiting. Neuro: Denies: dizziness. Objective General VS/I O: PATIENT WEIGHT: Weight (lb): 252 Weight (oz): 13.92 Weight (kg): 114.700 Medications: Active Meds + DC'd Last 24 Hrs Acetazolamide (DIAMOX) 500 MG Q12HR PO (DCD) Furosemide (LASIX 40 mg/4 mL INJECTION) 40 MG BI D 9A 5P IV (DCD) Amiodarone HCl (CORDARONE) 200 MG DAILY PO (DCD) Acetylcysteine (MUCOMYST FOR RT) 200 MG RTQ6H NE N PRN NEB (DCD) Sodium Chloride (SODIUM CHLORIDE) 4 ML RTBID PRN PRN NEB (DCD) Magnesium Chloride (MAG 64MG) 64 MG BID PO (DCD) Lisinopril (ZESTRIL) 2.5 MG DAILY PO (DCD) Ascorbic Acid (ASCORBIC ACID) 500 MG BID PO (DCD ) Bisacodyl (DULCOLAX) 10 MG DAILY PRN PRN RECTAL (DCD) Potassium Chloride (POTASSIUM CHLORIDE 20MEQ TAB .ER) 40 MEQ DAILY PRN PRN PO (DCD) Aspirin (ASPIRIN) 81 MG DAILY PO (DCD) Clopidogrel Bisulfate (Plavix) 75 MG DAILY PO (D CD) Cyanocobalamin (Vitamin B-12 500 mcg tab) 500 MC G DAILY PO (DCD) Ferrous Sulfate (FERROUS SULFATE) 325 MG DAILY P O (DCD) Insulin Glargine (Lantus/Semglee) 30 UNIT DAILY SUBQ (DCD) Sodium Chloride (SODIUM CHLORIDE) 10 ML BID IV ( DCD) Insulin Human Lispro (HUMALOG) 0 AC HS SUBQ (DCD ) Pantoprazole (PROTONIX) 40 MG DAILY@0600 PO (DCD ) Albuterol/Ipratropium (DUONEB) 3 ML RTQ6H NEB (D CD) Glucagon (GLUCAGON) 1 MG ASDIR PRN IM (DCD) Acetaminophen (TYLENOL) 650 MG Q4H PRN PRN PO (D CD) Bisacodyl (DULCOLAX) 5 MG DAILY PRN PRN PO (DCD) Dextrose/Water (DEXTROSE 10% IN WATER) 250 ML DIR PRN IV (DCD) Atorvastatin Calcium (LIPITOR) 40 MG 2100 PO (DC D) Docusate Sodium (COLACE) 100 MG BID PO (DCD) Insulin Glargine (Lantus/Semglee) 20 UNIT BEDTIM E SUBQ (DCD) Melatonin (Melatonin) 3 MG BEDTIME PO (DCD) Metoprolol Tartrate (LOPRESSOR) 25 MG Q12HR PO ( DCD) Ondansetron HCl (ZOFRAN ODT) 4 MG TID PRN PRN PO (DCD) Sennosides (Senna Lax 8.6 MG TABLET) 17.2 MG BED TIME PO (DCD) Physical Exam General appearance: alert, awake, oriented Head/Eyes: atraumatic, normal conjunctiva/sclera , normal eyelids/periorb. 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, 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, CNII-XII intact, normal speech, no motor deficits, no sensory deficits Skin: dry, intact Results Findings/Data: Laboratory Tests 01/21 1137 Chemistry POC Glucose (70 - 110 MG/DL) 150 H Diagnosis, Assessment Plan Consultants: cardiology, cardiovascular surgery, hospitalist, nephrology Free Text DxA P Notes Free text DxA P notes: general weakness CAD - post CABG CHF HTN DM HLD afib RONA morbid obesity CAD -- cardiology consult CV surgeon consult CABG --post procedure ASA/lipitor Echocardiogram showed EF 55 to 59% edema --lasix /zaroxolyn -- monitor renal function weakness --PT/OT as rehab afib -- rate control -- xarelto/amiodarone /metoprolol HTN-- metoprolol/norvasc DM-- on lantus -- sliding scale HLD-- on lipitor RONA--cpap as nigth DVTP -- xarelto 01/09-- she feel tire after PT -- complaint of sob at night --bipap at night -- continue lasix -- replace K 01/10 Continue bowel regimen, adjust as needed i f no results. Replace K. 01/11 +BM. Replace K+, discussed with RN to give PRN K on - she complaint of tire - not sleep well last night -- continue bipap at night -- continue PT/OT 01/13 -- she sit on the chair . 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 less sob -- continue PT/OT 01/16- she is doing well with PT/OT 01/17- she is tire -- no cp no sob -- continue PT/OT 01/18- she complaint of sob -- CXR -- Progression of pulmonary edema. -- lasix change to iv -- continue PT/OT 01/19 Continue care in rehab. 01/21-- she get better -- go home today note delay entry due to meditech down yesterday Electronically Signed by Meryl Rosa MD on 2 at 1032 RPT #:[id number] END OF REPORT 2022-01-20 15:28:00-00:00 [facility] Cardiothoracic Surgery Prog REPORT#:[id number] REPORT STATUS: Signed DATE:01/20/22 TIME: 1528 PATIENT: SAÚL GILES UNIT #: [id number] ROOM/BED: [place] [address] : 43 AGE: 76 SEX: F ATTEND: Jesus Landry MD ADM AUTHOR: Kena Macedo * ALL edits or amendments must be made on the [employer]/computer document * General Status post: 1. Mitral valve replacement (31 Magna valve). 2. Coronary artery bypass graft surgery x1 (GOMES A to LAD). 3. Isolation of left atrial appendage. 4. Pericardiectomy. Subjective Chief complaint: Follow-up CABG and MVR, isolation of left atrial appendage and pericardiectomy Review of Systems Constitutional: Denies: fever, malaise. Allergy/Immun: Denies: allergic reaction. Respiratory: Denies: SOB. GI: Denies: abdominal pain, nausea, vomiting. Heme: Denies: bleeding. All systems rev neg: except as marked Objective General VS/I O Last Documented: Result Date Time Pulse Ox 95 01/20 1934 B/P 142/63 01/20 1934 B/P Mean 89.3 01/20 1934 Temp 98.2 01/20 1934 Pulse 74 01/20 1934 Resp 18 01/20 1934 O2 Delivery Nasal cannula 11/08 1528 O2 Flow Rate 2 11/08 0820 FiO2 28 01/196 24 hour I O ending at 0700: 01/20 0700 01/19 1900 Intake Total 480 Output Total 433 495 Balance 47 -495 Intake, Oral 480 Number 0 0 Incontinent Voids Number Voids 4 4 Output, Urine 433 495 PATIENT WEIGHT: Weight (lb): 252 Weight (oz): 13.92 Weight (kg): 114.700 Physical Exam General appearance: awake, no respiratory distre ss Wound/incision: Location: sternum Site condition: edges approximated HEENT: anicteric Neck: supple/no meningismus Cardiovascular: normal heart sounds, regular rat e rhythm Respiratory: aerating well, symmetric expansion, no distress Abdomen: soft, non-tender, no distention Extremities: moves all 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, 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, normal speech, n o motor deficits Psychiatry: normal affect, normal mood Current Medications Medications: Active Meds + DC'd Last 24 Hrs Acetazolamide (DIAMOX) 500 MG Q12HR PO Furosemide (LASIX 40 mg/4 mL INJECTION) 40 MG B ID 9A 5P IV Amiodarone HCl (CORDARONE) 200 MG DAILY PO Acetylcysteine (MUCOMYST FOR RT) 200 MG RTQ6H NE N PRN NEB Sodium Chloride (SODIUM CHLORIDE) 4 ML RTBID PRN PRN NEB Magnesium Chloride (MAG 64MG) 64 MG BID PO Lisinopril (ZESTRIL) 2.5 MG DAILY PO Ascorbic Acid (ASCORBIC ACID) 500 MG BID PO Bisacodyl (DULCOLAX) 10 MG DAILY PRN PRN RECTAL Potassium Chloride (POTASSIUM CHLORIDE 20MEQ TAB .ER) 40 MEQ DAILY PRN PRN PO Aspirin (ASPIRIN) 81 MG DAILY PO Clopidogrel Bisulfate (Plavix) 75 MG DAILY PO Cyanocobalamin (Vitamin B-12 500 mcg tab) 500 MC G DAILY PO Ferrous Sulfate (FERROUS SULFATE) 325 MG DAILY P O Insulin Glargine (Lantus/Semglee) 30 UNIT DAILY SUBQ Sodium Chloride (SODIUM CHLORIDE) 10 ML BID IV Insulin Human Lispro (HUMALOG) 0 AC HS SUBQ Pantoprazole (PROTONIX) 40 MG DAILY@0600 PO Albuterol/Ipratropium (DUONEB) 3 ML RTQ6H NEB Glucagon (GLUCAGON) 1 MG ASDIR PRN IM Acetaminophen (TYLENOL) 650 MG Q4H PRN PRN PO Bisacodyl (DULCOLAX) 5 MG DAILY PRN PRN PO Dextrose/Water (DEXTROSE 10% IN WATER) 250 ML DIR PRN IV (CKD) Atorvastatin Calcium (LIPITOR) 40 MG 2100 PO Docusate Sodium (COLACE) 100 MG BID PO Insulin Glargine (Lantus/Semglee) 20 UNIT BEDTIM E SUBQ Melatonin (Melatonin) 3 MG BEDTIME PO Metoprolol Tartrate (LOPRESSOR) 25 MG Q12HR PO Ondansetron HCl (ZOFRAN ODT) 4 MG TID PRN PRN PO Sennosides (Senna Lax 8.6 MG TABLET) 17.2 MG BED TIME PO Results Findings/Data: Laboratory Tests 01/20 01/20 01/20 01/20 1943 1528 1116 0548 Chemistry POC Glucose (70 - 110 MG/DL) 196 H 207 H 161 H 112 H Diagnosis, Assessment Plan Hospital course to date: This very pleasant 76-year-old female, from [facility], with past medical history of macular d egeneration, obesity, obstructive sleep apnea (CPAP at home), former smoker, hyp ertension, hyperlipidemia, diabetes, Crohn's disease , chronic atrial fibrillatio n status post 3 ablations in the past (on Xarelto), pacemaker placement who had a recent admission t o the hospital with heart failure symptoms. She has be en admitted to the hospital today for elective heart cath. Coronary angiogram showed severe m ultivessel coronary artery disease not suitable for percutaneous intervention. s/p 1. Mitral valve replacement (31 Magna valve). 2. Coronary artery bypass graft surgery x1 (ROBERTS to LAD). 3. Isolation of left atrial appendage. 4. Pericardiectomy. 01/20 She is alert and oriented, no respiratory distre ss Sternal incision intact and healing. Continue st ernal precautions for 6 weeks Echocardiogram noted. Encourage I-S and ambulation Diuresis by nephrology. Replace electrolytes Continue rehab Consultants: cardiology, cardiovascular surgery, hospitalist, nephrology at 2021 at 2243 RPT #:[id number] END OF REPORT 2022-01-20 12:55:00-00:[address] [facility] ([facility]) Rehab Team Conference REPORT#:[id number] REPORT STATUS: Signed DATE:01/20/22 TIME: 1255 PATIENT: SAÚL GILES UNIT #: [id number] ROOM/BED: [place] [address] : 43 AGE: 76 SEX: F ATTEND: Shaun Landry MD ADM AUTHOR: Jesus Landry MD * ALL edits or amendments must be made on the el [employer]/computer document * Rehabilitation Team Conference Weekly Team Conference Team conf information: Date of conference: 01/20/22 Conference type: Interim Conference scribe: Dione Bray PTA INTERDISCIPLINARY TEAM MEETING PARTICIPANTS: TITLE NAME MD Jesus Landry, RN Allie Toledo, RN PT Moshe Benton, PT OT Gabriele Delgado OT CM/LANDRY Chu, YARD ENGINEER [facility] Luda Correa, YARD ENGINEER Staff (8) NO ATTENDEE Staff (9) NO ATTENDEE OTHER NAME CREDENTIALS 1 STEFANO PERRY DIETITIAN 2 FUNCTIONAL CHANGE: TYPE ADMISSION TOTAL INTERIM TOTAL CHANGE Self care 19 31 12 Transfer 23 26 3 Mobility 11 22 11 Wheelchair distance: 150 ft Mobility description: BOWEL AND BLADDER STATUS: Bowel continence admission rating: Bladder continence admission rating: Always cont inent Bowel and bladder team confsabine renreina update: CONTINENT WITH BOTH BLADDER AND BOWEL FUNCTION. INTERDISCIPLINARY TEAM UPDATES: DALILA team conference update: PATIENT IS CURRENTLY RECEIVING IV LASIX TWICE A DAY. SHE IS ALSO ON 2L OF OXYGEN VIA NASAL CANNULA AN D HAS SCHEDULED BREATHING TREATMENTS WITH RT. SHE IS F OR DAILY WEIGHTS. BLADDER SCAN BID X 3 DAYS. PATIENT DID NOT SLEEP WELL TONIGHT DUE TO URINARY FREQUE NCY. AOx4. PT team conference update: PROGRESS-GOOD PT COMP LETES ALL ACTIVIIES WITH FREQUENT REST STOPS DUE TO F ATIGUE,ON 2L OF 02 WITH ACTIVITIES CUES WITH PURSED LIP BREATHING,COMPLETE FAMILY TRAINING AND CAR T RANIntivix. GAIT 100'X2 SBA FOR SAFETY. DME-HEAVY DUTY RW OT team conference update: PROGRESS: FAIR ADLS: MOD I TO TOTAL A BARRIERS: DECREASED SELF CARE, SELF LIMITING BEHAVIOR, LOW ENDURANCE ST team conference update: CM or SW team conference upd ate: PT LIVES AT HOME WITH DAUGHTER. PLAN FOR HER TO DISCHARGE TO HOME IN [place] WITH HOME HEAL TH AND DME Other discipline update 1: P O INTAKE: 25-5% OF A DIABETIC DIET WITH GULCERNA TID Other discipline update 2: Other discipline update 3: REHAB DC GOALS: Patient's identified discharge goal: PT: Pt ABLE TO WALK Eating discharge goal: Independent (6) Shower/bathe self discharge goal: Independent ( 6) Upper body dressing discharge goal: Independent (6) Lower body dressing discharge goal: Independent (6) Chair/bed to chair transfer discharge goal: Ind ependent (6) Transfer on/off toilet or commode discharge goa l: Independent (6) Walking 50 feet with two turns discharge goal: Independent (6) Walking 150 feet discharge goal: Independent (6 ) Four steps discharge goal: Partial/moderate ass t (3) Twelve steps discharge goal: Not applicable [place] 150 feet discharge goal: Supervise/diana ch asst (4) Goal 1 - Bowel function: PT WILL MAINTAIN NORMAL BOWEL FUNCTION IN REHAB STAY Goal 2 - Bladder function: PT WILL MAINTAIN NORM AL BLADDER FUNCITON IN REHAB STAY Nursing goal 3: PT WILL MAINTAIN SKIN INTEGRITY Nursing goal 4: PT WILL SKY IN FREE OF FALLS AND INJURIES THROUGHOUT REHAB STAY Nursing goal 5: DISCHARGE PLANNING: Barriers to discharge: DEFICITS W ADLS , IMPAIRE D ENDURANCE, STERNAL PREACVUTIONS Strategies for D/C barriers: ADL TRAINING, ENDUR ANCE TRAINING, COMPENSATORY STRATEGIES Estimated length of stay in days: 14 Anticipated discharge date: 01/21/22 Discharge date adjustment comment: PENDING MEDIC AL CLEARANCE Identified financial and/or community resource n eeds: Family/Caregiver training da ys: PT AND FAMILY WILL BE EDUCATED ON THE USE OF THE GAIT BELT TO LOWER THE PT TO THE FLOOR IN THE EV ENT OF LOSS OF BALANCE TO PREVENT FALL OR INJURY. FAMILY TRAINING COMPLETE D ON 01/19/22 [place] day (DATE): 01/20/22 Expected discharge destination: Home Anticipated services upon discharge: Occupationa l therapy, Physical therapy, Home health, Nursing Anticipated discharge equipment: RW, WC-20" Impairment group: neurologic conditions NOTE Document ONLY ONE Impairment Group Neurologic conditions: neuromuscular disorders Etiologic diagnosis: Critical illness myopathy Review of comorbidities: CAD, MITRAL VALVE REPLACEMENT 12/23, CORONARY ARTERY BYPASS, Pericardiectomy., OBESITY, RONA, HTN, HLD, DIABETES, CROHN'S DISEASE, CHRONIC A FIB, PACEMAKER, ANEMIA, HYPOXIC RESPIRATORY FAILURE, on BiPap MD Review/Recommendations Attestation: This interdisciplinary team conference was led terrance ozuna and I concur with all decisions made during the team conference and re visions to the individualized overall plan of care. IRF cont stay criteria See my note at 1256 RPT #:[id number] END OF REPORT 2022-01-20 11:09:00-00:00 [facility] Cardiology Progress Note REPORT#:[id number] REPORT STATUS: Signed DATE:01/20/22 TIME: 1109 PATIENT: SAÚL GILES UNIT #: [id number] ROOM/BED: [place] [address] : 43 AGE: 76 SEX: F ATTEND: Shaun Landry MD ADM AUTHOR: Jillian Lane NP * ALL edits or amendments must be made on the [employer]/computer document * Subjective Chief complaint: stable in rehab Objective General VS/I O: Laboratory Tests 01/19/22 0445: [Embedded Image Not Available] Current Medications Sig/Fabby Start time Last Medication Dose Route Stop Time Status Admin Acetazolamide 500 MG Q12HR 01/19 2100 AC 01/20 PO 01/26 2059 0737 Furosemide 40 MG BID 9A 5P 01/18 1700 AC 01/20 IV 02/17 1659 0736 Amiodarone HCl 200 MG DAILY 01/15 0900 AC 01/20 PO 02/14 0859 0736 Acetazolamide 250 MG Q12HR 01/14 2100 DC 01/19 PO 01/21 2059 0907 Acetylcysteine 200 MG RTQ6H PRN PRN 01/14 1430 AC NEB 02/13 1416 Sodium Chloride 4 ML RTBID PRN PRN 01/14 1430 A C NEB 02/13 1417 Magnesium Chloride 64 MG BID 10/31 1100 AC 11/0 8 PO 02/11 1059 0737 Lisinopril 2.5 MG DAILY 01/10 1400 AC 01/20 PO 02/09 1359 0737 Ascorbic Acid 500 MG BID 01/09 2100 AC 01/20 PO 02/08 205 0736 Bisacodyl 10 MG DAILY PRN PRN 01/09 1115 AC RECTAL 02/08 1114 Potassium Chloride 40 MEQ DAILY PRN PRN 01/08 1 100 AC 01/11 PO 02/07 1059 0952 Aspirin 81 MG DAILY 01/08 0900 AC 01/20 PO 02/07 0859 0736 Clopidogrel Bisulfate 75 MG DAILY 01/08 0900 AC 01/20 PO 02/07 0859 0736 Cyanocobalamin 500 MCG DAILY 01/08 09 AC PO 02/07 0859 0736 Ferrous Sulfate 325 MG DAILY 01/08 0900 AC 11 8 PO 02/07 0859 0737 Insulin Glargine 30 UNIT DAILY 01/08 09 AC SUBQ 02/07 0859 0738 Sodium Chloride 10 ML BID 01/08 0900 AC 01/20 IV 02/07 0859 0737 Insulin Human Lispro 0 AC HS 01/08 0730 AC 11 7 SUBQ 02/07 0729 1718 Pantoprazole 40 MG DAILY@0600 01/08 0600 AC PO 02/07 0559 0517 Albuterol/Ipratropium 3 ML RTQ6H 01/08 0300 AC 01/20 NEB 02/07 0259 0802 Glucagon 1 MG ASDIR PRN 01/07 2300 AC IM 02/06 225 Acetaminophen 650 MG Q4H PRN PRN 01/07 2200 AC 01/15 PO 02/06 2152104 Bisacodyl 5 MG DAILY PRN PRN 01/070 AC PO 02/06 215 Dextrose/Water 250 ML ASDIR PRN 01/07 2200 CKD IV 02/06 2159 Atorvastatin Calcium 40 MG 2100 01/07 2100 AC 1 03/21 PO 02/06 Docusate Sodium 100 MG BID 01/07 2100 AC 01/20 PO 02/0637 Insulin Glargine 20 UNIT BEDTIME 01/07 2100 AC 01/19 SUBQ 02/06 Melatonin 3 MG BEDTIME 01/07 2100 AC 01/19 PO 02/06 Metoprolol Tartrate 25 MG Q12HR 01/07 2100 AC 1 03/22 PO 02/06 Ondansetron HCl 4 MG TID PRN PRN 01/07 2100 AC 01/20 PO 02/06 Sennosides 17.2 MG BEDTIME 01/07 2100 AC 01/19 PO 02/06 24 hour I O ending at 0700: 01/20 0701/19 1900 Intake Total 480 Output Total 433 495 Balance 47 -495 Intake, Oral 480 Number 0 0 Incontinent Voids Number Voids 4 4 Output, Urine 433 495 Vital Signs: Date Time Temp Pulse Resp B/P B/P Pulse O2 O2 Flow FiO2 Mean Ox Delivery Rate 01/21 820 Nasal 2 cannula 01/20 08 95 Nasal 2 cannula 01/20 0651 36.7 70 18 119/67 84.7 97 Nasal cannula 01/20 0035 Nasal 2 cannula 01/19 2352 36.6 72 18 110/59 76.4 97 Simple mask 01/20 2116 99 Nasal 2 28 cannula 01/19 1835 36.6 70 18 135/81 98.7 98 Nasal cannula 01/19 1454 Nasal 3 cannula 01/19 1430 98 Nasal 3 cannula PATIENT WEIGHT: Weight (lb): 252 Weight (oz): 13.92 Weight (kg): 114.700 Physical Exam General appearance: sleeping comfortably, no acu te distress Head/Eyes: PERRLA Neck: no JVD Cardiovascular: CV assessment: regular rate and rhythm Respiratory: decreased breath sounds, no distres s Abdomen: soft, non-tender, normal bowel sounds, no distention Genitourinary: no flank pain, no urinary cathete r Upper extremity: UE assessment: no edema Lower extremity: LE assessment: edema (1 + pitting edema) Musculoskeletal: normal inspection 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 CAD (coronary artery disease) 2. Severe mitral regurgitation 3. Chronic a-fib 4. S/P CABG x 1 5. S/P MVR (mitral valve replacement) Consultants: cardiology, cardiovascular surgery, hospitalist, nephrology Free Text DxA P Notes Free Text DxA P Notes: Ms Giles is a 76 y/o female with PMHx of CAD, HL D, T2DM, RONA (CPAP at home), smoker, Crohn's disease, AF s/p ablation s/p PPM, and chronic lymphedema. She is recovering from CABG and MVR. She is transferred to [facility] for inpatient rehabilitation. Cardiolgy is consulted f or continuity of cardiac-related care. 1. CAD s/p CABG, MVR, and ILAA. On Plavix, aspirin, beta-delma, statin 2. Chronic AF s/p PPM/ablation. had ILAA during bypass no need for AC keep K >4 and Mag above 2 continue amiodarone, assa, plavix, bb 3. Chronic Diastolic CHF diurectics per Nephrology on NC 2L repeat echo shows LVEF 50-54% RV dilated with severely increased pressures, MV bioprosthesis- mild to moderate stenosis, mild t o moderate TR 4. Hypertension - normotensive BP range: 114-147/66-82 (82.1-103.3) mmHg continue bb/cherelle 5. Hyperlipidemia Continue statins. 6. MARCELLO - resolved per Nephrology ELOS 01/21 per Rehab at 1237 Electronically Signed by Aruna Fortune MD on at 1439 RPT #:[id number] END OF REPORT 2022-01-20 11:06:00-00:00 [facility]ph[facility] Progress Note REPORT#:[id number] REPORT STATUS: Signed DATE:01/20/22 TIME: 110 PATIENT: SAÚL GILES UNIT #: [id number] ROOM/BED: [place] [address] : 43 AGE: 76 SEX: F ATTEND: Shaun Landry MD ADM AUTHOR: Suki Fuchs MD * ALL edits or amendments must be made on the [employer]/computer document * Subjective Chief complaint: CAD, S/P CABG HPI: This is a 76-year-old female who has past medica l history of hypertension, diabetes, coronary artery disease, atrial fibril lation who presented with worsening shortness of breath and on further wor k-up was 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 She was with normal kidney function prior to surgery and afte r her surgery she began to develop oliguria. Her procedure was done without any complications but after her surgery she did require pressor support for hypotension and she was intubated for respiratory acidosis and hypoxia a nd she was treated with vancomycin for infection treatment. She recovered kidney function and has been on diuretics for hypervolemia which has also imp roved significantly. 01/13 She was seen in rehab today and was doin g well, nursing staff reporting eating well. 01/20 Feeling better , dyspnea improving. Objective General VS/I O: Vital Signs: Date Time Temp Pulse Resp B/P B/P Pulse O2 O2 F low FiO2 Mean Ox Delivery Rate 01/21 2020 94 Nasal 2 cannula 01/20 1934 36.8 74 18 142/63 89.3 95 01/20 1900 Nasal 2 cannula 01/20 1528 36.3 70 18 117/67 83.6 99 Nasal cannula 01/20 0820 Nasal 2 cannula 01/20 0802 95 Nasal 2 cannula 01/20 0651 36.7 70 18 119/67 84.7 97 Nasal cannula 01/20 0035 Nasal 2 cannula 01/19 2352 36.6 72 18 110/59 76.4 97 Simple mask 24 hour I O ending at 0700: 01/20 0700 01/19 1900 Intake Total 480 Output Total 433 495 Balance 47 -495 Intake, Oral 480 Number 0 0 Incontinent Voids Number Voids 4 4 Output, Urine 433 495 PATIENT WEIGHT: Weight (lb): 252 Weight (oz): 13.92 Weight (kg): 114.700 Physical Exam General appearance: alert, awake, oriented Head/eyes: atraumatic, EOMI ENT: moist mucous membranes, normal nose Neck: no JVD, no lymphadenopathy Cardiovascular: normal heart sounds, regular rat e and rhythm Respiratory: aerating well, clear to auscultatio n Abdomen: non-tender, soft Genitourinary: no bladder distention, no flank p ain Extremities: pitting edema, no gangrene, no swel ling Diagnosis, Assessment Plan Free Text A P: This is a 76-year-old female known to have hyper tension, diabetes, atrial fibrillation, s/p permanent pacemaker and histor y of ablation presenting with shortness of breath and found to have multivesse l coronary artery disease therefore she had CABG on December 19 after which she has developed oliguria. Nephrology is following for: 1. Acute kidney injury: Most likely it i s prerenal (cardiorenal), she has been hypotensive postoperatively with require ment for pressor support and inotropic support. Resolved with stable hemodynamics 2. Hypervolemia:Improved, on low dose lasix. 3. Hypokalemia: Plan to replace nd monitor close ly. 4. Metabolic alkalosis secondary to diur etics. Plan to monitoe and give diamox if worsens. 01/13 1. Acute kidney injury: Resolved with stable hemodynamics. 2. Hypervolemia:Improved, on low dose lasix.Dose increased to 40 Q12H as she was looking volume overloaded. 3. Hypokalemia: Plan to replace and monitor clos faustina. 4. Metabolic alkalosis secondary to diuretics. P juan to monitor and continue diamox. 01/16 1. Acute kidney injury: Resolved with stable hemodynamics. 2. Hypervolemia:Improved, on low dose lasix.Dose increased to 40 Q12H as she was looking volume overloaded. No staying well. 3. Hypokalemia: Plan to repl cherelle and monitor closely.Lisinopril helping keep her potassium better. 4. Metabolic alkalosis secondary to diuretics. P juan to monitor and continue diamox. 01/17 1. Acute kidney injury: Resolved with stable hemodynamics. 2. Hypervolemia:She was complaining of w orsening SOB so plan to follow chest x ray and give more lasix if she has pulmonary ant ma. She is on low dose Q12H. 3. Hypokalemia: Plan to repl cherelle and monitor closely.Lisinopril helping keep her potassium better. 4. Metabolic alkalosis secondary to diuretics. P juan to monitor and continue diamox. 01/18 1. Acute kidney injury: Resolved with stable hemodynamics. 2. Hypervolemia:She was complaining of w orsening SOB so plan to follow chest x ray and give more lasix if she has pulmonary ant ma. She is on low dose Q12H. Lasix switched to IV dosing so plan to continue same for today. 3. Hypokalemia: Plan to repl cherelle and monitor closely.Lisinopril helping keep her potassium better. 4. Metabolic alkalosis secondary to diuretics. P juan to monitor and continue diamox. 01/19 1. Acute kidney injury: Resolved with stable hemodynamics. 2. Hypervolemia:She was complaining of worsening SOB , lasix dose switched to IV, Acetazoleamide increased to IV 500 and echoc ardiogram ordered after discussing with cardiology. 3. Hypokalemia: Plan to repl cherelle and monitor closely.Lisinopril helping keep her potassium better. 4. Metabolic alkalosis secondary to diuretics. P juan to monitor and continue diamox. 01/20 1. Acute kidney injury: Resolved with stable hemodynamics. 2. Hypervolemia:She was complaining of worsening SOB , lasix dose switched to IV, Acetazoleamide increased to IV 500 and echoc ardiogram ordered after discussing with cardiology. 3. Hypokalemia: Plan to repl cherelle and monitor closely.Lisinopril helping keep her potassium better. 4. Metabolic alkalosis secondary to diuretics. P juan to monitor and continue diamox. 5/ Dyspnea, Improving with current diuretics. Consultants: cardiology, cardiovascular surgery, hospitalist, nephrology Electronically Signed by Suki Fuchs MD on at 2233 RPT #:[id number] END OF REPORT 2022-01-20 08:12:00-00:00 [facility]L [facility] Rehab Progress Note REPORT#:[id number] REPORT STATUS: Signed DATE:01/20/22 TIME: 811 PATIENT: SAÚL GILES UNIT #: [id number] ROOM/BED: [place] [address] : 43 AGE: 76 SEX: F ATTEND: Shaun Landry MD ADM AUTHOR: Jesus Landry MD * ALL edits or amendments must be made on the el [facility]/computer document * See Addendum Subjective Chief complaint: Rehab follow-up Up in wheelchair working with occupational thera py Breathing better Did family training and sliding board transfers Using CPAP at night Patient on 97 to 99% on 2 L O2 NAD, eating 50-80% Decreased BLE edema + BM Denies GOLD/N/V/D/CP 14 systems reviewed and neg. except that above. Objective General VS: Vital Signs: Date Time Temp Pulse Resp B/P B/P Pulse O2 O2 Flow FiO2 Mean Ox Delivery Rate 01/20 0820 Nasal 2 cannula 01/20 0802 95 Nasal 2 cannula 01/20 0651 98.1 70 18 119/67 84.7 97 Nasal cannula 01/20 0035 Nasal 2 cannula 01/19 2352 97.9 72 18 110/59 76.4 97 Simple mask 01/19 2116 99 Nasal 2 28 cannula 01/19 1835 97.9 70 18 135/81 98.7 98 Nasal cannula 01/19 1454 Nasal 3 cannula 01/19 1430 98 Nasal 3 cannula PATIENT WEIGHT: Weight (lb): 252 Weight (oz): 13.92 Weight (kg): 114.700 Medications: Active Meds + DC'd Last 24 Hrs Acetazolamide (DIAMOX) 500 MG Q12HR PO Furosemide (LASIX 40 mg/4 mL INJECTION) 40 MG BI D 9A 5P IV Amiodarone HCl (CORDARONE) 200 MG DAILY PO Acetazolamide (DIAMOX) 250 MG Q12HR PO (DC) Acetylcysteine (MUCOMYST FOR RT) 200 MG RTQ6H NE N PRN NEB Sodium Chloride (SODIUM CHLORIDE) 4 ML RTBID PRN PRN NEB Magnesium Chloride (MAG 64MG) 64 MG BID PO Lisinopril (ZESTRIL) 2.5 MG DAILY PO Ascorbic Acid (ASCORBIC ACID) 500 MG BID PO Bisacodyl (DULCOLAX) 10 MG DAILY PRN PRN RECTAL Potassium Chloride (POTASSIUM CHLORIDE 20MEQ TAB .ER) 40 MEQ DAILY PRN PRN PO Aspirin (ASPIRIN) 81 MG DAILY PO Clopidogrel Bisulfate (Plavix) 75 MG DAILY PO Cyanocobalamin (Vitamin B-12 500 mcg tab) 500 MC G DAILY PO Ferrous Sulfate (FERROUS SULFATE) 325 MG DAILY P O Insulin Glargine (Lantus/Semglee) 30 UNIT DAILY SUBQ Sodium Chloride (SODIUM CHLORIDE) 10 ML BID IV Insulin Human Lispro (HUMALOG) 0 AC HS SUBQ Pantoprazole (PROTONIX) 40 MG DAILY@0600 PO Albuterol/Ipratropium (DUONEB) 3 ML RTQ6H NEB Glucagon (GLUCAGON) 1 MG ASDIR PRN IM Acetaminophen (TYLENOL) 650 MG Q4H PRN PRN PO Bisacodyl (DULCOLAX) 5 MG DAILY PRN PRN PO Dextrose/Water (DEXTROSE 10% IN WATER) 250 ML DIR PRN IV (CKD) Atorvastatin Calcium (LIPITOR) 40 MG 2100 PO Docusate Sodium (COLACE) 100 MG BID PO Insulin Glargine (Lantus/Semglee) 20 UNIT BEDTIM E SUBQ Melatonin (Melatonin) 3 MG BEDTIME PO Metoprolol Tartrate (LOPRESSOR) 25 MG Q12HR PO Ondansetron HCl (ZOFRAN ODT) 4 MG TID PRN PRN PO Sennosides (Senna Lax 8.6 MG TABLET) 17.2 MG BED TIME PO Physical Exam General appearance: alert, awake, no acute distr ess Psych: flat affect, alert, oriented x 3 HEENT: anicteric, mucosal membranes moist, pupil s reactive to light, sclera clear Neck: non-tender, supple, no JVD Cardiovascular: regular rate rhythm, S1/S2, no m urmur Respiratory: on oxygen, aerating well, clear ollie aterally Abdomen: obese, bowel sounds present, non-disten ded, soft, non-tender Skin: dry, normal temperature, no rash, INCISION S: CDI, sutures x 2. 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 Results Findings/Data: Laboratory Tests: 01/20 01/20 01/19 01/19 1116 0548 1831 1558 Chemistry POC Glucose (70 - 110 MG/DL) 161 H 112 H 197 H 166 H Laboratory Tests 01/17 01/17 01/18 01/18 01/18 1653 2010 0511 0520 1018 Chemistry Sodium (134 - 147 mEq/L) 142 Potassium (3.4 - 5.0 mEq/L) 3.4 Chloride (100 - 108 mEq/L) 102 Carbon Dioxide (21 - 33 mEq/l) 33 Anion Gap (0 - 20) 10 BUN (7 - 18 mg/dL) 16 Creatinine (0.6 - 1.3 mg/dL) 0.8 Glomerular Filtr Rate (70 - 80) 75.4 Glucose (70 - 110 mg/dL) 80 POC Glucose (70 - 110 MG/DL) 157 142 78 Calcium (8.0 - 10.5 mg/dL) 9.3 Ionized Calcium Gigi (1.09 - 1.30 1.15 MMOL/L) Urines Urine Color (YEL/STRAW) YELLOW Urine Appearance (CLEAR) SL CLOUDY Urine pH (5.0 - 7.0) 7.0 Ur Specific [place] (1.005 - 1.030) 1.012 Urine Protein (NEGATIVE) NEGATIVE Urine Glucose (UA) (NEGATIVE) NEGATIVE Urine Ketones (NEGATIVE) NEGATIVE Urine Blood (NEGATIVE) NEGATIVE Urine Nitrite (NEGATIVE) POSITIVE Urine Bilirubin (NEGATIVE) NEGATIVE Urine Urobilinogen (0.2 - 1.0 mg/dL) 2.0 Ur Leukocyte Esterase (NEGATIVE) 1+ Urine RBC (0 - 3 RBC/HPF) 0-3 Urine WBC (0 - 3 WBC/HPF) 0-3 Ur Squamous Epith Cells (NONE SEEN 11-25 /HPF) Urine Bacteria (NONE SEEN /HPF) 4+ Urine Mucus (NONE SEEN /LPF) TRACE 01/18 01/18 01/18 01/19 01/19 1215 1608 1930 0108 0137 Chemistry POC Glucose (70 - 110 MG/DL) 128 162 192 56 77 01/19 01/19 01/19 01/19 0445 0445 0500 0622 Chemistry Sodium (134 - 147 mEq/L) 141 Potassium (3.4 - 5.0 mEq/L) 3.4 Cancelled Chloride (100 - 108 mEq/L) 100 Carbon Dioxide (21 - 33 mEq/l) 31 Anion Gap (0 - 20) 13 BUN (7 - 18 mg/dL) 15 Creatinine (0.6 - 1.3 mg/dL) 0.9 Glomerular Filtr Rate (70 - 80) 65.4 Glucose (70 - 110 mg/dL) 92 POC Glucose (70 - 110 MG/DL) 93 Calcium (8.0 - 10.5 mg/dL) 9.3 Magnesium (1.80 - 2.40 mg/dL) 1.90 B-Natriuretic Peptide (0 - 100 PG/ML) 241.0 Hematology WBC (4.5 - 11.0 x10 3/uL) 6.1 RBC (3.54 - 5.02 x10 6/uL) 3.09 Hgb (11.0 - 15.0 g/dL) 10.2 Hct (33.0 - 45.0 %) 34.3 MCV (81.0 - 99.0 fL) 111.0 MCH (27.0 - 33.0 pg) 33.0 MCHC (33.0 - 37.0 g/dL) 29.7 RDW (11.5 - 14.5 %) 17.4 Plt Count (150 - 400 x10 3/uL) 135 MPV (7.0 - 9.0 fL) 11.7 Neut % (Auto) (56.0 - 77.0 %) 76.8 Lymph % (Auto) (14.0 - 32.0 %) 8.1 Barron % (Auto) (4.8 - 9.0 %) 11.7 Eos % (Auto) (0.3 - 3.7 %) 2.3 Baso % (Auto) (0.0 - 2.0 %) 0.8 Neut # (Auto) (2.0 - 7.6 x10 3/uL) 4.66 Lymph # (Auto) (1.0 - 3.8 x10 3/uL) 0.49 Barron # (Auto) (0.1 - 0.8 x10 3/uL) 0.71 Eos # (Auto) (0.0 - 0.2 x10 3/uL) 0.14 Baso # (Auto) (0.0 - 0.2 x10 3/uL) 0.05 Abs Immat Gran (auto) (0.00 - 0.03 x10 3/uL) 0. 02 Add Manual Diff NO Immature Gran % (0.0 - 2.0 %) 0.3 Nucleated RBC % (0 - 0 %) 0.0 Nucleated RBCs # (Man) (0.0 - 0.1 x10 3/uL) 0.0 0 01/19 01/19 01/19 01/20 01/20 1123 1558 1831 0548 1116 Chemistry POC Glucose (70 - 110 MG/DL) 136 166 197 112 16 1 Radiology data: Recent Impressions: RADIOLOGY - XR CHEST 1 V 01/14 906 Report Impression - Status: SIGNED Entered: 01/14/2022 1041 IMPRESSION: Minimal vascular congestion with subsegmental at electasis in the right midlung zone and opacity at the left lung base. Impression By: [email or web address] - Nancy Carr RADIOLOGY - XR CHEST 2 V 01/17 1445 Report Impression - Status: SIGNED Entered: 01/17/2022 1501 IMPRESSION: Progression of pulmonary edema. Impression By: [email or web address] - Phyllis woods M.D. Diagnosis, Assessment Plan Free Text A P: Assessment: Critical illness myopathy Constrictive pericarditis Severe mitral regurgitation CAD 12/19: Status post CABG x1 (ROBERTS to LAD), ILAp, p ericardectomy 12/19: S/p MVR 01/06: Echo-EF 55-59%, mild to moderately dilate d right ventricle, LA and RA dilatation, normally functioning MV bioprosthesi s 01/19: Echo EF 50-54%, right ventricular systolic pressures severely increased, mitral valve bioprosthesis with mild to moderate stenosis, mild to moderate tricuspid regurgitation Chronic AF, s/p PPM/ablation-rate controlled-pac ed Volume overload-BLE edema History of lymphedema Generalized weakness Deconditioning Acute blood loss anemia Hypertension Morbid obesity HLD Crohn's disease Smoker Hypoxic respiratory failure Hypokalemia/hypomagnesemia secondary to diuretic s MARCELLO resolved Significant impaired ADLs, mobility, gait, marian ce and endurance Plan: -Comprehensive inpatient rehabilitation with physical, occupational and speech therapy 3 hours a day for 5 to 6 days per week-2 06/19 rehabilitation physician supervision-05/10 rehabilitat ion nursing care-Case management for safe discharge planning-Rehab MD to monitor comorbidities and f unctional progress. -Decubitus prevention-protective hydrating lotio n-turn every 2 hours-offload -Bowel program-MiraLAX and Senokot -Nutrition, monitor the michael ent's p.o. intake, check albumin 3.5 and prealbumin, dietary consult, protein supplements. -Strict fall and safety precaution -DVT prophylaxis-SCDs/antiembolism stockings -GI prophylaxis-Protonix -Glycemic control-continue insulin-blood sugars good-as per medicine -LYY-fmuzbvpb-vftnotlcyz following -Respiratory insufficiency-wean O2-postop pulmon shruthi protocol, encourage I-S, deep cough and breathing exercises, slowly impro ving -CAD s/p CABG, MVR, and ILAA-on DAPT post-op car e per CTS -Acute/chr AF s/p PPM/ablation. Rate controlled, paced rhythm-had ILAA during bypass, no need for AC-as per cardiology -Volume wmjwitdt-xgfesrst-nt diuretics, strict I 's and O's Daily -HTN. BP stable-on metoprolol -HLD-On statins. -Crohn's disease. Per IM. -Early mobilization-OOB to chair -Work on bed mobility, transfer training , ADLs, pre-gait and gait exercises as tolerable. -Increase endurance and strength -Pain management -Consultants-cardiology, CVS, medicine, nephrolo gy -Labs reviewed-WBC normal, hemoglobin im proved 9.8 improved, platelets normal, potassium 3.5, creatinine 1.0, magnesium 1.77, BNP 232, 180 -replete potassium and magnesium as needed 01/09: SOB-chest x-ray-impro laury aeration bilaterally. Residual interstitial and perihilar opacities. Subsegmental atelectasis. R esidual small volume pleural effusions. -Continue CPAP at night -Encourage I-S and ambulation -BLE edema-ANA PAULA hose and elevation, exercise, diu retics -Diuresis as per cardiology -Anemia-continue ferrous sulfate, B12, vitamin C monitor H H-stable -Monitor telemetry -Nausea-Zofran -Continue current medications -Sternal incision intact and healing. Co ntinue sternal precautions for 6 weeks -Therapeutic rest break given in between due to fair activity tolerance and patient reported Omaira RPE 4 (1-10) somewhat Hard SOB during activity. -01/17: Chest x-ray: Progress ion of pulmonary edema on increased diuretics, Lasix IV -Patient reports urinating frequently but only v olivia small amounts. UA inconsistent with UTI, bladder scan PVR 8 cc -01/19:Hypervolemia: She was complaining of worsening SOB , lasix dose switched to IV, Acetazoleamide increased to IV 500 and ec hocardiogram ordered after discussing with cardiology as per renal -01/19: Echo EF 50-54%, right ventricular systolic pressures severely increased, mitral valve by bioprosthesis with mild to moderate stenosis, mild to moderate tricuspid regurgitation -01/20: Patient breathing better -Labs reviewed-hemoglobin stable 10.2, platelets 135K, chemistry stable, potassium 3.4, continue potassium replaced-repea t labs tomorrow -Advance therapies as tolerated -Patient with increased fatigue with therapy and requiring rest breaks. -Team conference Progress: DIONI MEDEIROS TRG. DAUGHTER PRESENT AND PARTICIPATE WITH GAIT TRAINING 100'X2 SBA FOR SAFETY ON 2L PT WORKING ON PURSED LIP BREATHING AND PACING WITH WALKIN G TO ASSIST WITH ENERGY CONSERVATION,EDUCATE PT AND VALENTINAE R IN SAFETY W/TRANSFERS,SAFETY WITH FALL PERVENTION,FALL RECOVERY,SAFETY W/WALKING.PT COMPLETE CAR TRANSFER INDEP. TO ENTER /EXIT CAR PT REPORTS TO DAUGHTER SHE PREFERS A HEAVY DUT Y RW VS ROLLATOR.EDUCATE DAUGHTER ON HOME SAFETY AWARENESS,SAFETY IN COMMUNITY,SAFETY W/CAR TRANSFER. PM R Please see team note. Plan and goals discussed with the patient. I agree with the teams finding ELOS: [01/21] JJ-skqz-tlbut with daughter-HH DME-RW, wheelchair, daughter to buy transport ch air TT 35 min>50% with discussin g with patient about team conference, discharge plan , SOB improved, progress with therapies, rehab plan of care, goals, needs, and medical issues, examination. MAR and EMR reviewe d. All Questions answered. Orders: Procedure Date/time Status MAGNESIUM 01/22 400 Active CBC W/AUTO DIFF 01/22 400 Active BASIC METABOLIC PANEL 01/22 400 Active NOTIFY MD - MISCELLANEOUS 01/20 1255 Active NEB TREATMENT SUBSQ 01/20 910 Active Consultants: cardiology, cardiovascular surgery, hospitalist, nephrology Plan discussed with: patient, nurse, interdisc c are team Rehab attestation: Face to face exam completed. Treatment plan disc ussed with patient. Meets continued stay criteria. Agree with interdiscipl inary treatment plan. at 1255 Addendum 1: 01/21/22 0724 by Jesus Landry MD PM R Please see team note. Plan and goals discussed with the patient. I agree with the teams finding ELOS: [01/21] XU-warh-ahipy with daughter-HH DME-RW, wheelchair, daughter to buy transport ch air Due to Critical illness myop athy patient has a mobility limitation that prevents him/her from performing MRADLS in the [facility] such as transfers, showering, lower body dressing. The patient requires a walker to safely perform MRADLS in the home and a cane will not resolve the issue. The patients mobility imitations are impaired transfers, showering, mobility, low er body dressing. at 0726 RPT #:[id number] END OF REPORT 2022-01-19 15:58:00-00:00 [id number] [place] [address] PATIENT NAME: SAÚL GILES ADMIT DATE: 01/07/22 ACCOUNT NO: [id number] ROOM NO: [facility] AGE: 76 REPORT TYPE: eECHOCARDIOGRAM REPORT SEX: F ADMITTING PHYSICIAN:Jesus Landry MD ATTENDING PHYSICIAN:Jesus Landry MD *[place] [address] Transthoracic Echocardiogram Patient: Saúl Giles Study Date: 01/19/2022 BP: 146 / 72 Location: [place] CCL URN: [id number] 1663 : 1945 Age: 76 Height: 64 in / 162.6 cm Gender: F Weight: 251 .5 lb / 114.3 kg BMI/BSA: 43.3 kg/m 2 / 2.33 m 2 *Ordering Physician: * Suki Fuchs *Interpreting Physician: * Aruna Fortune MD *Con[employer] Stone Fab[employer]ator: * Bria Licona Indications: CONTINUOUS FLUID OVERLOAD. Study data: Transthoracic echocardiogram. Proced ure: Transthoracic echocardiography was performed. Image quality wa s adequate. The study was technically limited due to excessive abdomin al air and body habitus. Complete 2D, complete spectral Doppler, and col or Doppler. Location: Bedside. Patient status: Inpatient. Patient room number: 508. Study status: Stat. Findings Left ventricle: The cavity size is normal. Wall thickness is at the upper limits of normal. Systolic function is at the lower limits of normal. The estimated ejection fraction is 50-54 %. Regional wall motion abnormalities cannot be excluded. Left ventricul ar diastolic function parameters are indeterminate. PATIENT NAME: SAÚL GILES 663 Right ventricle: The cavity size is dilated. Sys tolic function is low normal. TAPSE measurement is estimated at 11 mm. Systolic pressure is severely increased. RVSP is estimated at 69 mmHg . Left atrium: The atrium is mildly dilated. Right atrium: The atrium is dilated. Aorta: Aortic root: The aortic root is normal in size. Aortic valve: Not well visualized. The valve is structurally normal. The valve is probably trileaflet. There is no ev idence of stenosis. There is no regurgitation. Mitral valve: There is a bioprosthesis. The find ings are consistent with mild to moderate stenosis. There is no regu rgitation. Tricuspid valve: The valve is structurally ramirez l. There is mild-moderate regurgitation. Pulmonic valve: Not well visualized. The valve i s structurally normal. There is trivial regurgitation. Pericardium: There is no pericardial effusion. Pulmonary arteries: Main pulmonary artery: The artery is of normal s ize. Systemic veins: Inferior vena cava: The vessel is dilated. The r espirophasic diameter changes are blunted (< 50%). Measurements Left ventricle Value Ref ZEHRA, LAX 5.1 cm 3.8 - 5.2 ESD, LAX 3.8 cm 2.2 - 3.5 ESD/bsa, LAX 1.6 cm/m 2 1.3 - 2.1 FS, LAX 25 % 27 - 45 ESD/bsa major 2.6 cm/m 2 --------- ax, A4C ZEHRA/bsa minor 2.6 cm/m 2 --------- ax, A4C ZEHRA major ax, 6.7 cm --------- A2C ESD major ax, 6.0 cm --------- A2C ZEHRA/bsa major 2.8 cm/m 2 --------- ax, A2C ESD/bsa major 2.6 cm/m 2 --------- ax, A2C PW, ED 1.0 cm 0.6 - 0.9 IVS/PW, ED 0.87 --------- EF 50 % 54 - 74 E', lat sim, TDI 5.4 cm/sec >=10.0 E/e', lat sim, 34 --------- TDI E', med sim, TDI 5.4 cm/sec >=7.0 E/e', med sim, 34 --------- TDI E', avg, TDI 5.4 cm/sec --------- E/e', avg, TDI 34 <=14 PATIENT NAME: SAÚL GILES 663 LVOT Value Ref Diam, S 2.02 cm --------- Area 3.2 cm 2 --------- Peak jana, S 1.22 m/sec --------- Mean jana, S 0.84 m/sec --------- VTI, S 24.9 cm --------- Peak grad, S 6 mm Hg --------- Mean grad, S 3 mm Hg --------- SV 80 ml --------- Qs 6.35 L/min --------- Qs/bsa 2.7 L/(min-m 2) --------- SV/bsa 34 ml/m 2 --------- Ventricular septum Value Ref IVS, ED 0.8 cm 0.6 - 0.9 Right ventricle Value Ref TAPSE, MM 1.1 cm 1.7 - 3.1 Pressure, S 69 mm Hg --------- RVOT Value Ref Peak v, S 0.92 m/sec --------- Peak grad, S 3 mm Hg --------- Left atrium Value Ref AP dim, ES 4.70 cm 2.70 - 3.80 Vol/bsa, ES, 1-p 34 ml/m 2 11 - 40 A4C Vol, ES, 2-p 72 ml --------- Vol/bsa, ES, 2-p 31 ml/m 2 16 - 34 Vol/bsa, ES, A/L 38 ml/m 2 16 - 34 AP dim, ES MM 4.3 cm 2.7 - 3.8 LA/Ao root 1.68 --------- ratio, MM Right atrium Value Ref Area, ES 25 cm 2 10 - 18 Aortic valve Value Ref Leaflet sep 3.0 cm --------- Leaflet sep, MM 1.51 cm --------- Peak v, S 1.55 m/sec --------- Mean v, S 0.98 m/sec --------- VTI, S 28.2 cm --------- Mean grad, S 4.6 mm Hg --------- Peak grad, S 9.7 mm Hg --------- LVOT/AV, VTI 0.88 --------- ratio ARABELLA, VTI 2.83 cm 2 --------- LVOT/AV, Vpeak 0.79 --------- ratio ARABELLA, Vmax 2.52 cm 2 --------- PATIENT NAME: SAÚL GILES 663 Mitral valve Value Ref Peak E 1.81 m/sec --------- Mean v, D 1.16 m/sec --------- VTI leaflet 49.1 cm --------- coapt PHT 80 ms --------- Mean grad, D 6.2 mm Hg --------- Peak grad, D 13.9 mm Hg --------- MVA, PHT 2.8 cm 2 --------- Pulmonic valve Value Ref NE v, ED 0.8 m/sec --------- Tricuspid valve Value Ref TR peak v 3.67 m/sec <=2.8 Peak RV-RA grad, 54 mm Hg --------- S Aortic root Value Ref Root diam, ED MM 2.56 cm --------- Ascending aorta Value Ref AAo AP diam, S 2.9 cm --------- AAo AP diam/bsa, 1.3 cm/m 2 --------- S Pulmonary artery Value Ref Pressure, S 64.6 mm Hg --------- Systemic veins Value Ref Estimated CVP 15 mm Hg --------- Conclusions Summary: 1. Left ventricle: The cavity size is normal. Wa ll thickness is at the upper limits of normal. Systolic function is at the lower limits of normal. The estimated ejection fraction is 50-5 4%. Regional wall motion abnormalities cannot be excluded. Left v entricular diastolic function parameters are indeterminate. 2. Right ventricle: The cavity size is dilated. Systolic pressure is severely increased. 3. Left atrium: The atrium is mildly dilated. 4. Right atrium: The atrium is dilated. 5. Mitral valve: There is a bioprosthesis. The f indings are consistent with mild to moderate stenosis. 6. Tricuspid valve: There is mild-moderate regur gitation. Prepared and electronically signed by PATIENT NAME: SAÚL GILES 663 Aruna Fortune MD 01/19/2022 15:58 at 1558 PATIENT NAME: SAÚL GILES 663 2022-01-19 15:45:00-00:00 [facility] ([facility] Nephrology Progress Note REPORT#:[id number] REPORT STATUS: Signed DATE:01/19/22 TIME: 1545 PATIENT: SAÚL GILES UNIT #: [id number] ROOM/BED: [place] [address] : 43 AGE: 76 SEX: F ATTEND: Shaun Landry MD ADM AUTHOR: Suki Fuchs MD * ALL edits or amendments must be made on the [employer]/computer document * Subjective Chief complaint: CAD, S/P CABG HPI: This is a 76-year-old female who has past medica l history of hypertension, diabetes, coronary artery disease, atrial fibril lation who presented with worsening shortness of breath and on further wor k-up was 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 She was with normal kidney function prior to surgery and afte r her surgery she began to develop oliguria. Her procedure was done without any complications but after her surgery she did require pressor support for hypotension and she was intubated for respiratory acidosis and hypoxia a nd she was treated with vancomycin for infection treatment. She recovered kidney function and has been on diuretics for hypervolemia which has also imp roved significantly. 01/13 She was seen in rehab today and was doin g well, nursing staff reporting eating well. 01/19 Complaining of SOB. Otherwis e no distress. Lasix increased from PO dosing to IV. She has good urine output so no further lasix gi shahbaz but case discussed with cardiology and echocardiogram and IV diamox recc ommended so ordered. Objective General VS/I O: Vital Signs: Date Time Temp Pulse Resp B/P B/P Pulse O2 O2 F low FiO2 Mean Ox Delivery Rate 01/20 0820 Nasal 2 cannula 01/20 0802 95 Nasal 2 cannula 01/20 0651 36.7 70 18 119/67 84.7 97 Nasal cannula 01/20 0035 Nasal 2 cannula 01/19 2352 36.6 72 18 110/59 76.4 97 Simple mask 01/19 2116 99 Nasal 2 28 cannula 01/19 1835 36.6 70 18 135/81 98.7 98 Nasal cannula 01/19 1454 Nasal 3 cannula 01/19 1430 98 Nasal 3 cannula 24 hour I O ending at 0700: 01/20 1900 Intake Total 480 Output Total 433 495 Balance 47 -495 Intake, Oral 480 Number 0 0 Incontinent Voids Number Voids 4 4 Output, Urine 433 495 PATIENT WEIGHT: Weight (lb): 252 Weight (oz): 13.92 Weight (kg): 114.700 Physical Exam General appearance: alert, awake, oriented Head/eyes: atraumatic, EOMI ENT: moist mucous membranes, normal nose Neck: no JVD, no lymphadenopathy Cardiovascular: normal heart sounds, regular rat e and rhythm Respiratory: aerating well, clear to auscultatio n Abdomen: non-tender, soft Genitourinary: no bladder distention, no flank p ain Extremities: pitting edema, no gangrene, no swel ling Diagnosis, Assessment Plan Free Text A P: This is a 76-year-old female known to have hyper tension, diabetes, atrial fibrillation, s/p permanent pacemaker and histor y of ablation presenting with shortness of breath and found to have multivesse l coronary artery disease therefore she had CABG on December 19 after which she has developed oliguria. Nephrology is following for: 1. Acute kidney injury: Most likely it i s prerenal (cardiorenal), she has been hypotensive postoperatively with require ment for pressor support and inotropic support. Resolved with stable hemodynamics 2. Hypervolemia:Improved, on low dose lasix. 3. Hypokalemia: Plan to replace nd monitor close ly. 4. Metabolic alkalosis secondary to diur etics. Plan to monitoe and give diamox if worsens. 01/13 1. Acute kidney injury: Resolved with stable hemodynamics. 2. Hypervolemia:Improved, on low dose lasix.Dose increased to 40 Q12H as she was looking volume overloaded. 3. Hypokalemia: Plan to replace and monitor clos faustina. 4. Metabolic alkalosis secondary to diuretics. P juan to monitor and continue diamox. 01/16 1. Acute kidney injury: Resolved with stable hemodynamics. 2. Hypervolemia:Improved, on low dose lasix.Dose increased to 40 Q12H as she was looking volume overloaded. No staying well. 3. Hypokalemia: Plan to repl cherelle and monitor closely.Lisinopril helping keep her potassium better. 4. Metabolic alkalosis secondary to diuretics. P juan to monitor and continue diamox. 01/17 1. Acute kidney injury: Resolved with stable hemodynamics. 2. Hypervolemia:She was complaining of w orsening SOB so plan to follow chest x ray and give more lasix if she has pulmonary ant ma. She is on low dose Q12H. 3. Hypokalemia: Plan to repl cherelle and monitor closely.Lisinopril helping keep her potassium better. 4. Metabolic alkalosis secondary to diuretics. P juan to monitor and continue diamox. 01/18 1. Acute kidney injury: Resolved with stable hemodynamics. 2. Hypervolemia:She was complaining of w orsening SOB so plan to follow chest x ray and give more lasix if she has pulmonary ant ma. She is on low dose Q12H. Lasix switched to IV dosing so plan to continue same for today. 3. Hypokalemia: Plan to repl cherelle and monitor closely.Lisinopril helping keep her potassium better. 4. Metabolic alkalosis secondary to diuretics. P juan to monitor and continue diamox. 01/19 1. Acute kidney injury: Resolved with stable hemodynamics. 2. Hypervolemia:She was complaining of worsening SOB , lasix dose switched to IV, Acetazoleamide increased to IV 500 and echoc ardiogram ordered after discussing with cardiology. 3. Hypokalemia: Plan to repl cherelle and monitor closely.Lisinopril helping keep her potassium better. 4. Metabolic alkalosis secondary to diuretics. P juan to monitor and continue diamox. Consultants: cardiology, cardiovascular surgery, hospitalist, nephrology Electronically Signed by Suki Fuchs MD on at 1104 RPT #:[id number] END OF REPORT 2022-01-19 11:42:00-00:00 [facility]) Cardiology Progress Note REPORT#:[id number] REPORT STATUS: Signed DATE:01/19/22 TIME: 1142 PATIENT: SAÚL GILES UNIT #: [id number] ROOM/BED: [place] [address] : 43 AGE: 76 SEX: F ATTEND: Shaun Landry MD ADM AUTHOR: Jillian Lane NP * ALL edits or amendments must be made on the [employer] document * Subjective Chief complaint: stable in rehab Objective General VS/I O: Laboratory Tests 01/19/22 0445: [Embedded Image Not Available] 01/18/22 0520: [Embedded Image Not Available] Current Medications Sig/Fabby Start time Last Medication Dose Route Stop Time Status Admin Acetazolamide 500 MG Q12HR 01/19 2100 AC PO 01/26 205 Furosemide 40 MG BID 9A 5P 01/18 1700 AC 01/19 IV 02/17 1659 0908 Amiodarone HCl 200 MG DAILY 01/15 0900 AC 01/19 PO 02/14 0859 0905 Acetazolamide 250 MG Q12HR 01/14 2100 DC 01/19 PO 01/21 2059 0907 Acetylcysteine 200 MG RTQ6H PRN PRN 01/14 1430 AC NEB 02/13 1416 Sodium Chloride 4 ML RTBID PRN PRN 01/14 1430 A C NEB 02/13 1417 Magnesium Chloride 64 MG BID 01/12 1100 AC 11/ 7 PO 02/11 1059 0905 Lisinopril 2.5 MG DAILY 01/10 1400 AC 01/19 PO 02/09 1359 0904 Ascorbic Acid 500 MG BID 01/09 2100 AC 01/19 PO 02/08 205 0906 Bisacodyl 10 MG DAILY PRN PRN 01/09 1115 AC RECTAL 02/08 1114 Potassium Chloride 40 MEQ DAILY PRN PRN 01/08 1 100 AC 01/11 PO 02/07 1059 0952 Aspirin 81 MG DAILY 01/08 0900 AC 01/19 PO 02/07 0859 0905 Clopidogrel Bisulfate 75 MG DAILY 01/08 0900 A C 01/19 PO 02/07 0859 0904 Cyanocobalamin 500 MCG DAILY 01/08 09 AC 110 7 PO 02/07 0859 0904 Ferrous Sulfate 325 MG DAILY 01/08 09 AC 11/0 7 PO 02/07 0859 0907 Insulin Glargine 30 UNIT DAILY 01/08 09 AC SUBQ 02/07 0859 0903 Sodium Chloride 10 ML BID 01/08 09 AC 01/19 IV 02/07 0859 0905 Insulin Human Lispro 0 AC HS 01/08 0730 AC 6 SUBQ 02/07 0729 1654 Pantoprazole 40 MG DAILY@0600 01/08 06 AC PO 02/07 0559 0533 Albuterol/Ipratropium 3 ML RTQ6H 01/08 0300 AC 01/19 NEB 02/07 0259 1427 Glucagon 1 MG ASDIR PRN 01/07 2300 AC IM 02/06 225 Acetaminophen 650 MG Q4H PRN PRN 01/07 2200 AC 01/15 PO 02/06 Bisacodyl 5 MG DAILY PRN PRN 01/07 2200 AC PO 02/06 2159 Dextrose/Water 250 ML ASDIR PRN 01/07 2200 CKD IV 02/06 2159 Atorvastatin Calcium 40 MG 2100 01/07 2100 AC 1 03/20 PO 02/06 Docusate Sodium 100 MG BID 01/07 2100 AC 01/19 PO 02/06 2059 09 Insulin Glargine 20 UNIT BEDTIME 01/07 2100 AC 01/18 SUBQ 02/06 Melatonin 3 MG BEDTIME 01/07 2100 AC 01/18 PO 02/06 Metoprolol Tartrate 25 MG Q12HR 01/07 2100 AC 03/21 PO 02/06 2059 09 Ondansetron HCl 4 MG TID PRN PRN 01/07 2100 AC 01/19 PO 02/06 Sennosides 17.2 MG BEDTIME 01/07 2100 AC 01/18 PO 02/06 24 hour I O ending at 0700: 01/19 0700 01/18 1900 Intake Total 700 Output Total 845 1750 Balance -845 -1050 Intake, Oral 700 Number 1 Bowel Movements Number 0 0 Incontinent Voids Number Voids 12 5 Output, Urine 845 1750 Patient 114.7 kg Weight Weight Standing scale Measurement Method Vital Signs: Date Time Temp Pulse Resp B/P B/P Pulse O2 O2 F low FiO2 Mean Ox Delivery Rate 01/19 0738 95 Nasal 2 cannula 01/19 0715 36.5 71 19 146/72 96.8 97 Room air 01/19 453 73 95 01/19 453 95 Nasal 2 cannula 01/18 2255 36.4 73 17 143/61 88.4 91 01/18 2055 72 92 01/18 2055 92 Nasal 2 cannula 01/18 1935 36.6 72 18 150/80 103.2 92 CPAP 01/18 1609 36.6 73 18 124/53 76.3 92 Nasal cannula PATIENT WEIGHT: Weight (lb): 252 Weight (oz): 13.92 Weight (kg): 114.700 Physical Exam General appearance: alert, awake, oriented, no a cute distress Head/Eyes: PERRLA Neck: no JVD Cardiovascular: CV assessment: regular rate and rhythm Respiratory: decreased breath sounds, no distres s Abdomen: soft, non-tender, normal bowel sounds, no distention Genitourinary: no flank pain, no urinary cathete r Upper extremity: UE assessment: no edema Lower extremity: LE assessment: edema (1 + pitting edema) Musculoskeletal: normal inspection 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 CAD (coronary artery disease) 2. Severe mitral regurgitation 3. Chronic a-fib 4. S/P CABG x 1 5. S/P MVR (mitral valve replacement) Consultants: cardiology, cardiovascular surgery, hospitalist, nephrology Free Text DxA P Notes Free Text DxA P Notes: Ms Giles is a 76 y/o female with PMHx of CAD, HL D, T2DM, RONA (CPAP at home), smoker, Crohn's disease, AF s/p ablation s/p PPM, and chronic lymphedema. She is recovering from CABG and MVR. She is transferred to [facility] for inpatient rehabilitation. Cardiolgy is consulted f or continuity of cardiac-related care. 1. CAD s/p CABG, MVR, and ILAA. On Plavix, aspirin, beta-delma, statin 2. Chronic AF s/p PPM/ablation. had ILAA during bypass no need for AC keep K >4 and Mag above 2 continue amiodarone, assa, plavix, bb 3. Chronic Diastolic CHF diurectics per Nephrology on NC 2L 4. Hypertension - normotensive BP range: 114-147/66-82 (82.1-103.3) mmHg continue bb/cherelle 5. Hyperlipidemia Continue statins. 6. MARCELLO - resolved per Nephrology ELOS 01/21 per Rehab at 1451 Electronically Signed by Aruna Fortune MD on at 0001 RPT #:[id number] END OF REPORT 2022-01-19 09:39:00-00:00 [facility] Hospitalist Progress Note REPORT#:[id number] REPORT STATUS: Signed DATE:01/19/22 TIME: 938 PATIENT: SAÚL GILES UNIT #: [id number] ROOM/BED: [place] [address] : 43 AGE: 76 SEX: F ATTEND: Shaun Landry MD ADM AUTHOR: Kat Carreon APRN * ALL edits or amendments must be made on the [employer]/computer document * Subjective Chief complaint: up in chair, no new complaints Review of Systems Constitutional: Reports: generalized weakness. Denies: chills, f ever. Respiratory: Denies: SOB, wheezing. Cardiovascular: Denies: chest pain, palpitations. GI: Denies: constipation, nausea, vomiting. Neuro: Denies: headache, numbness. All systems rev neg: except as marked Objective General VS/I O: Vital Signs: Date Time Temp Pulse Resp B/P B/P Pulse O2 O2 F low FiO2 Mean Ox Delivery Rate 01/19 738 95 Nasal 2 cannula 01/19 715 36.5 71 19 146/72 96.8 97 Room air 01/19 453 73 95 01/19 453 95 Nasal 2 cannula 01/18 2255 36.4 73 17 143/61 88.4 91 01/18 2055 72 92 01/18 2055 92 Nasal 2 cannula 01/18 1935 36.6 72 18 150/80 103.2 92 CPAP 01/18 1609 36.6 73 18 124/53 76.3 92 Nasal cannula 01/18 1023 Nasal 2 cannula 24 hour I O ending at 0700: 01/19 0700 01/18 1900 Intake Total 700 Output Total 845 1750 Balance -845 -1050 Intake, Oral 700 Number 1 Bowel Movements Number 0 0 Incontinent Voids Number Voids 12 5 Output, Urine 845 1750 Patient 114.7 kg Weight Weight Standing scale Measurement Method PATIENT WEIGHT: Weight (lb): 252 Weight (oz): 13.92 Weight (kg): 114.700 Medications: Active Meds + DC'd Last 24 Hrs Furosemide (LASIX 40 mg/4 mL INJECTION) 40 MG BI D 9A 5P IV Amiodarone HCl (CORDARONE) 200 MG DAILY PO Acetazolamide (DIAMOX) 250 MG Q12HR PO Acetylcysteine (MUCOMYST FOR RT) 200 MG RTQ6H NE N PRN NEB Sodium Chloride (SODIUM CHLORIDE) 4 ML RTBID PRN PRN NEB Magnesium Chloride (MAG 64MG) 64 MG BID PO Furosemide (LASIX) 40 MG BID 9A 5P PO (DC) Lisinopril (ZESTRIL) 2.5 MG DAILY PO Ascorbic Acid (ASCORBIC ACID) 500 MG BID PO Bisacodyl (DULCOLAX) 10 MG DAILY PRN PRN RECTAL Potassium Chloride (POTASSIUM CHLORIDE 20MEQ TAB .ER) 40 MEQ DAILY PRN PRN PO Aspirin (ASPIRIN) 81 MG DAILY PO Clopidogrel Bisulfate (Plavix) 75 MG DAILY PO Cyanocobalamin (Vitamin B-12 500 mcg tab) 500 MC G DAILY PO Ferrous Sulfate (FERROUS SULFATE) 325 MG DAILY P O Insulin Glargine (Lantus/Semglee) 30 UNIT DAILY SUBQ Sodium Chloride (SODIUM CHLORIDE) 10 ML BID IV Insulin Human Lispro (HUMALOG) 0 AC HS SUBQ Pantoprazole (PROTONIX) 40 MG DAILY@0600 PO Albuterol/Ipratropium (DUONEB) 3 ML RTQ6H NEB Glucagon (GLUCAGON) 1 MG ASDIR PRN IM Acetaminophen (TYLENOL) 650 MG Q4H PRN PRN PO Bisacodyl (DULCOLAX) 5 MG DAILY PRN PRN PO Dextrose/Water (DEXTROSE 10% IN WATER) 250 ML DIR PRN IV (CKD) Atorvastatin Calcium (LIPITOR) 40 MG 2100 PO Docusate Sodium (COLACE) 100 MG BID PO Insulin Glargine (Lantus/Semglee) 20 UNIT BEDTIM E SUBQ Melatonin (Melatonin) 3 MG BEDTIME PO Metoprolol Tartrate (LOPRESSOR) 25 MG Q12HR PO Ondansetron HCl (ZOFRAN ODT) 4 MG TID PRN PRN PO Sennosides (Senna Lax 8.6 MG TABLET) 17.2 MG BED TIME PO Physical Exam General appearance: alert, awake, oriented Head/Eyes: atraumatic, normal conjunctiva/sclera , normal eyelids/periorb. 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, 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, CNII-XII intact, normal speech, no motor deficits, no sensory deficits Skin: dry, intact Results Findings/Data: Laboratory Tests 01/195 0445 0137 0108 Chemistry Sodium (134 - 147 mEq/L) 141 Potassium (3.4 - 5.0 mEq/L) 3.4 Chloride (100 - 108 mEq/L) 100 Carbon Dioxide (21 - 33 mEq/l) 31 Anion Gap (0 - 20) 13 BUN (7 - 18 mg/dL) 15 Creatinine (0.6 - 1.3 mg/dL) 0.9 Glomerular Filtr Rate (70 - 80) 65.4 L Glucose (70 - 110 mg/dL) 92 POC Glucose (70 - 110 MG/DL) 93 77 56 L Calcium (8.0 - 10.5 mg/dL) 9.3 Magnesium (1.80 - 2.40 mg/dL) 1.90 B-Natriuretic Peptide (0 - 100 PG/ML) 241.0 H 01/18 01/18 01/18 1930 1608 1215 Chemistry POC Glucose (70 - 110 MG/DL) 192 H 162 H 128 H Laboratory Tests 11/07 0445 Hematology WBC (4.5 - 11.0 x10 3/uL) 6.1 RBC (3.54 - 5.02 x10 6/uL) 3.09 L Hgb (11.0 - 15.0 g/dL) 10.2 L Hct (33.0 - 45.0 %) 34.3 MCV (81.0 - 99.0 fL) 111.0 H MCH (27.0 - 33.0 pg) 33.0 MCHC (33.0 - 37.0 g/dL) 29.7 L RDW (11.5 - 14.5 %) 17.4 H Plt Count (150 - 400 x10 3/uL) 135 L MPV (7.0 - 9.0 fL) 11.7 H Neut % (Auto) (56.0 - 77.0 %) 76.8 Lymph % (Auto) (14.0 - 32.0 %) 8.1 L Barron % (Auto) (4.8 - 9.0 %) 11.7 H Eos % (Auto) (0.3 - 3.7 %) 2.3 Baso % (Auto) (0.0 - 2.0 %) 0.8 Neut # (Auto) (2.0 - 7.6 x10 3/uL) 4.66 Lymph # (Auto) (1.0 - 3.8 x10 3/uL) 0.49 L Barron # (Auto) (0.1 - 0.8 x10 3/uL) 0.71 Eos # (Auto) (0.0 - 0.2 x10 3/uL) 0.14 Baso # (Auto) (0.0 - 0.2 x10 3/uL) 0.05 Abs Immat Gran (auto) (0.00 - 0.03 x10 3/uL) 0. 02 Add Manual Diff NO Immature Gran % (0.0 - 2.0 %) 0.3 Nucleated RBC % (0 - 0 %) 0.0 Nucleated RBCs # (Man) (0.0 - 0.1 x10 3/uL) 0.0 0 Laboratory Tests 01/18 1018 Urines Urine Color (YEL/STRAW) YELLOW Urine Appearance (CLEAR) SL CLOUDY Urine pH (5.0 - 7.0) 7.0 Ur Specific Linneus (1.005 - 1.030) 1.012 Urine Protein (NEGATIVE) NEGATIVE Urine Glucose (UA) (NEGATIVE) NEGATIVE Urine Ketones (NEGATIVE) NEGATIVE Urine Blood (NEGATIVE) NEGATIVE Urine Nitrite (NEGATIVE) POSITIVE H Urine Bilirubin (NEGATIVE) NEGATIVE Urine Urobilinogen (0.2 - 1.0 mg/dL) 2.0 H Ur Leukocyte Esterase (NEGATIVE) 1+ H Urine RBC (0 - 3 RBC/HPF) 0-3 Urine WBC (0 - 3 WBC/HPF) 0-3 Ur Squamous Epith Cells (NONE SEEN /HPF) 11-25 H Urine Bacteria (NONE SEEN /HPF) 4+ H Urine Mucus (NONE SEEN /LPF) TRACE Diagnosis, Assessment Plan Consultants: cardiology, cardiovascular surgery, hospitalist, nephrology Free Text DxA P Notes Free text DxA P notes: general weakness CAD - post CABG CHF HTN DM HLD afib RONA morbid obesity CAD -- cardiology consult CV surgeon consult CABG --post procedure ASA/lipitor Echocardiogram showed EF 55 to 59% edema --lasix /zaroxolyn -- monitor renal function weakness --PT/OT as rehab afib -- rate control -- xarelto/amiodarone /metoprolol HTN-- metoprolol/norvasc DM-- on lantus -- sliding scale HLD-- on lipitor RONA--cpap as nigth DVTP -- xarelto 01/09-- she feel tire after PT -- complaint of sob at night --bipap at night -- continue lasix -- replace K 01/10 Continue bowel regimen, adjust as needed i f no results. Replace K. 01/11 +BM. Replace K+, discussed with RN to give PRN K on MAY. 01/12- she complaint of tire - not sleep well last night -- continue bipap at night -- continue PT/OT 01/13 -- she sit on the chair . 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 less sob -- continue PT/OT 01/16- she is doing well with PT/OT 01/17- she is tire -- no cp no sob -- continue PT/OT 01/18- she complaint of sob -- CXR -- Progression of pulmonary edema. -- lasix change to iv -- continue PT/OT 01/19 Continue care in rehab. Electronically Signed by Kat Carreon APRN on at 1208 at 1258 RPT #:[id number] END OF REPORT 2022-01-19 07:24:00-00:00 [facility] RE[facility]#:[id number] REPORT STATUS: Signed DATE:01/19/22 TIME: 723 PATIENT: SAÚL GILES UNIT #: [id number] ROOM/BED: [place] [address] : 43 AGE: 76 SEX: F ATTEND: Shaun Landry MD ADM AUTHOR: Jesus Landry MD * ALL edits or amendments must be made on the [employer]/computer document * Subjective Chief complaint: Rehab follow-up Up in wheelchair working with occupational thera py In gym, still has SOB Using CPAP at night Patient on 97 to 99% on 2 L O2 NAD, eating 50-80% Decreased BLE edema + BM Denies GOLD/N/V/D/CP 14 systems reviewed and neg. except that above. Objective General VS: Vital Signs: Date Time Temp Pulse Resp B/P B/P Pulse O2 O2 F low FiO2 Mean Ox Delivery Rate 01/19 738 95 Nasal 2 cannula 01/19 715 97.7 71 19 146/72 96.8 97 Room air 01/19 453 73 95 01/19 453 95 Nasal 2 cannula 01/18 2255 97.5 73 17 143/61 88.4 91 01/18 2055 72 92 01/18 2055 92 Nasal 2 cannula 01/18 1935 97.9 72 18 150/80 103.2 92 CPAP 01/18 160 97.9 73 18 124/53 76.3 92 Nasal cannula PATIENT WEIGHT: Weight (lb): 252 Weight (oz): 13.92 Weight (kg): 114.700 Medications: Active Meds + DC'd Last 24 Hrs Acetazolamide (DIAMOX) 500 MG Q12HR PO Furosemide (LASIX 40 mg/4 mL INJECTION) 40 MG BI D 9A 5P IV Amiodarone HCl (CORDARONE) 200 MG DAILY PO Acetazolamide (DIAMOX) 250 MG Q12HR PO (DC) Acetylcysteine (MUCOMYST FOR RT) 200 MG RTQ6H P RN PRN NEB Sodium Chloride (SODIUM CHLORIDE) 4 ML RTBID PRN PRN NEB Magnesium Chloride (MAG 64MG) 64 MG BID PO Lisinopril (ZESTRIL) 2.5 MG DAILY PO Ascorbic Acid (ASCORBIC ACID) 500 MG BID PO Bisacodyl (DULCOLAX) 10 MG DAILY PRN PRN RECTAL Potassium Chloride (POTASSIUM CHLORIDE 20MEQ TAB .ER) 40 MEQ DAILY PRN PRN PO Aspirin (ASPIRIN) 81 MG DAILY PO Clopidogrel Bisulfate (Plavix) 75 MG DAILY PO Cyanocobalamin (Vitamin B-12 500 mcg tab) 500 M CG DAILY PO Ferrous Sulfate (FERROUS SULFATE) 325 MG DAILY P O Insulin Glargine (Lantus/Semglee) 30 UNIT DAILY SUBQ Sodium Chloride (SODIUM CHLORIDE) 10 ML BID IV Insulin Human Lispro (HUMALOG) 0 AC HS SUBQ Pantoprazole (PROTONIX) 40 MG DAILY@0600 PO Albuterol/Ipratropium (DUONEB) 3 ML RTQ6H NEB Glucagon (GLUCAGON) 1 MG ASDIR PRN IM Acetaminophen (TYLENOL) 650 MG Q4H PRN PRN PO Bisacodyl (DULCOLAX) 5 MG DAILY PRN PRN PO Dextrose/Water (DEXTROSE 10% IN WATER) 250 ML DIR PRN IV (CKD) Atorvastatin Calcium (LIPITOR) 40 MG 2100 PO Docusate Sodium (COLACE) 100 MG BID PO Insulin Glargine (Lantus/Semglee) 20 UNIT BEDTIM E SUBQ Melatonin (Melatonin) 3 MG BEDTIME PO Metoprolol Tartrate (LOPRESSOR) 25 MG Q12HR PO Ondansetron HCl (ZOFRAN ODT) 4 MG TID PRN PRN PO Sennosides (Senna Lax 8.6 MG TABLET) 17.2 MG BED TIME PO Functional Progress Functional progress: - - OT INTERIM CARE - - Eating: Yes Oral hygiene: Yes Shower/ bathing: Yes Dressing upper body: Yes Dressing lower body: Yes Footwear: Yes - - OT INTERIM EATING - - Patient eats by mouth: Yes Eats by mouth independently: Yes Interim eating CARE score: Independent (6) - - OT INTERIM ORAL HYGIENE - - Patient performed oral hygiene: Yes Performed oral hygiene independently: Yes Interim oral hygiene CARE score: Independent (6 ) - - OT INTERIM SHOWER/BATHING - - Patient bathed or showered: Yes Bathed or showered self independently: No Required setup or cleanup ONLY to bathe or show er self: Yes Interim bathing CARE score: Setup or cleanup (5 ) - - OT INTERIM DRESSING UPPER BODY - - Patient dressed/undressed upper body: Yes Dressed/undressed upper body independently: No Required setup or cleanup ONLY to dress/undress upper body: No Required spv/verbal cues/CGA ONLY to dress/undr ess upper body: Yes Interim upper body dressing CARE score: Supervi alfred/touch (4 ) - - OT INTERIM DRESSING LOWER BODY - - Patient dressed/undressed lower body: Yes Dressed/undressed lower body independently: No Required setup or cleanup ONLY to dress/undress lower body: No Required spv/verbal cues/CGA ONLY to dress/undr ess lower body: Yes Interim lower body dressing CARE score: Supervi alfred/touch (4 ) - - OT INTERIM FOOTWEAR - - Patient put on/removed footwear: Yes Put on/removed footwear independently: No Required setup or cleanup ONLY to put on/remov e footwear: No Required spv/verbal cues/CGA ONLY to put on/rem ove footwear: No Put on/removed footwear: Pt does no effort Interim footwear CARE score: Dependent (1) Put on/removed footwear CARE comment: COMPRESSI ON SOCKS Physical Exam General appearance: alert, awake, no acute distr ess Psych: flat affect, alert, oriented x 3 HEENT: anicteric, mucosal membranes moist, pupil s reactive to light, sclera clear Neck: non-tender, supple, no JVD Cardiovascular: regular rate rhythm, S1/S2, no m urmur Respiratory: on oxygen, aerating well, clear ollie aterally Abdomen: obese, bowel sounds present, non-disten ded, soft, non-tender Skin: dry, normal temperature, no rash, INCISION S: CDI, sutures x 2. 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 Results Findings/Data: Laboratory Tests: 01/19 01/19 01/19 01/19 1123 0622 0445 0445 Chemistry Sodium (134 - 147 mEq/L) 141 Potassium (3.4 - 5.0 mEq/L) 3.4 Chloride (100 - 108 mEq/L) 100 Carbon Dioxide (21 - 33 mEq/l) 31 Anion Gap (0 - 20) 13 BUN (7 - 18 mg/dL) 15 Creatinine (0.6 - 1.3 mg/dL) 0.9 Glomerular Filtr Rate (70 - 80) 65.4 L Glucose (70 - 110 mg/dL) 92 POC Glucose (70 - 110 MG/DL) 136 H 93 Calcium (8.0 - 10.5 mg/dL) 9.3 Magnesium (1.80 - 2.40 mg/dL) 1.90 B-Natriuretic Peptide (0 - 100 PG/ML) 241.0 H Hematology WBC (4.5 - 11.0 x10 3/uL) 6.1 RBC (3.54 - 5.02 x10 6/uL) 3.09 L Hgb (11.0 - 15.0 g/dL) 10.2 L Hct (33.0 - 45.0 %) 34.3 MCV (81.0 - 99.0 fL) 111.0 H MCH (27.0 - 33.0 pg) 33.0 MCHC (33.0 - 37.0 g/dL) 29.7 L RDW (11.5 - 14.5 %) 17.4 H Plt Count (150 - 400 x10 3/uL) 135 L MPV (7.0 - 9.0 fL) 11.7 H Neut % (Auto) (56.0 - 77.0 %) 76.8 Lymph % (Auto) (14.0 - 32.0 %) 8.1 L Barron % (Auto) (4.8 - 9.0 %) 11.7 H Eos % (Auto) (0.3 - 3.7 %) 2.3 Baso % (Auto) (0.0 - 2.0 %) 0.8 Neut # (Auto) (2.0 - 7.6 x10 3/uL) 4.66 Lymph # (Auto) (1.0 - 3.8 x10 3/uL) 0.49 L Barron # (Auto) (0.1 - 0.8 x10 3/uL) 0.71 Eos # (Auto) (0.0 - 0.2 x10 3/uL) 0.14 Baso # (Auto) (0.0 - 0.2 x10 3/uL) 0.05 Abs Immat Gran (auto) (0.00 - 0.03 0.02 x10 3/uL) Add Manual Diff NO Immature Gran % (0.0 - 2.0 %) 0.3 Nucleated RBC % (0 - 0 %) 0.0 Nucleated RBCs # (Man) (0.0 - 0.1 x10 3/uL) 0.0 0 01/19 01/19 01/18 01/18 0137 0108 1930 1608 Chemistry POC Glucose (70 - 110 MG/DL) 77 56 L 192 H 162 H Radiology data: Recent Impressions: RADIOLOGY - XR CHEST 1 V 01/14 0906 Report Impression - Status: SIGNED Entered: 01/14/2022 1041 IMPRESSION: Minimal vascular congestion with subsegmental at electasis in the right midlung zone and opacity at the left lung base. Impression By: Nancy Stahl RADIOLOGY - XR CHEST 2 V 01/17 1445 Report Impression - Status: SIGNED Entered: 01/17/2022 1501 IMPRESSION: Progression of pulmonary edema. Impression By: [id number] Herminia woods M.D. Diagnosis, Assessment Plan Free Text A P: Assessment: Critical illness myopathy Constrictive pericarditis Severe mitral regurgitation CAD 12/19: Status post CABG x1 (ROBERTS to LAD), ILAp, p ericardectomy 12/19: S/p MVR 01/06: Echo-EF 55-59%, mild to moderately dilate d right ventricle, LA and RA dilatation, normally functioning MV bioprosthesi s Chronic AF, s/p PPM/ablation-rate controlled-pac ed Volume overload-BLE edema History of lymphedema Generalized weakness Deconditioning Acute blood loss anemia Hypertension Morbid obesity HLD Crohn's disease Smoker Hypoxic respiratory failure Hypokalemia/hypomagnesemia secondary to diuretic s MARCELLO resolved Significant impaired ADLs, mobility, gait, marian ce and endurance Plan: -Comprehensive inpatient rehabilitation with physical, occupational and speech therapy 3 hours a day for 5 to 6 days per week-2 06/19 rehabilitation physician supervision-05/10 rehabilitat ion nursing care-Case management for safe discharge planning-Rehab MD to monitor comorbidities and f unctional progress. -Decubitus prevention-protective hydrating lotio n-turn every 2 hours-offload -Bowel program-MiraLAX and Senokot -Nutrition, monitor the michael ent's p.o. intake, check albumin 3.5 and prealbumin, dietary consult, protein supplements. -Strict fall and safety precaution -DVT prophylaxis-SCDs/antiembolism stockings -GI prophylaxis-Protonix -Glycemic control-continue insulin-blood sugars good-as per medicine -HOV-sexccaea-pzyxdyjtct following -Respiratory insufficiency-wean O2-postop pulmon shruthi protocol, encourage I-S, deep cough and breathing exercises, slowly impro ving -CAD s/p CABG, MVR, and ILAA-on DAPT post-op car e per CTS -Acute/chr AF s/p PPM/ablation. Rate controlled, paced rhythm-had ILAA during bypass, no need for AC-as per cardiology -Volume vecqjzvx-qihysjge-mq diuretics, strict I 's and O's Daily -HTN. BP stable-on metoprolol -HLD-On statins. -Crohn's disease. Per IM. -Early mobilization-OOB to chair -Work on bed mobility, transfer training , ADLs, pre-gait and gait exercises as tolerable. -Increase endurance and strength -Pain management -Consultants-cardiology, CVS, medicine, nephrolo gy -Labs reviewed-WBC normal, hemoglobin im proved 9.8 improved, platelets normal, potassium 3.5, creatinine 1.0, magnesium 1.77, BNP 232, 180 -replete potassium and magnesium as needed 01/09: SOB-chest x-ray-impro laury aeration bilaterally. Residual interstitial and perihilar opacities. Subsegmental atelectasis. R esidual small volume pleural effusions. -Continue CPAP at night -Encourage I-S and ambulation -BLE edema-ANA PAULA hose and elevation, exercise, diu retics -Diuresis as per cardiology -Anemia-continue ferrous sulfate, B12, vitamin C monitor H H-stable -Monitor telemetry -Nausea-Zofran -Continue current medications -Sternal incision intact and healing. Co ntinue sternal precautions for 6 weeks -Therapeutic rest break given in between due to fair activity tolerance and patient reported Omaira RPE 4 (1-10) somewhat Hard SOB during activity. -01/17: Chest x-ray: Progress ion of pulmonary edema on increased diuretics, Lasix IV -Patient reports urinating frequently but only v olivia small amounts. UA inconsistent with UTI, bladder scan pending -Labs reviewed-hemoglobin stable 10.2, platelets 135K, chemistry stable, potassium 3.4, continue potassium replaced -Advance therapies as tolerated -Patient with increased fatigue with therapy and requiring rest breaks. -Team conference Progress: GAIT TR FT X 3 WITH RW WITH W/C F OLLOW. SPV, WITH 2 TURNS SEATED REST BREAKS D/T FATIGUE AND SOB, SPO2 AT 90 TO 92 % WITH RA W/C MOBILITY : 50 FT X 3 WITH MOD A, REPORTS DIFFICULTY WITH USE OF BLE D/T LYMPHEDEMA, BLE HEAVY PM R Please see team note. Plan and goals discussed with the patient. I agree with the teams finding ELOS: [01/21] UA-tekv-ndvfb with daughter-HH DME-RW, wheelchair TT 33 min>50% with discussing with patient about SOB improved, progress with therapies, rehab plan of care, goals, needs, and medical issues, examination. MAR and EMR reviewed. All Questions answered. Orders: Procedure Date/time Status Bladder Scan 01/19 1349 Active NEB TREATMENT SUBSQ 01/19 0741 Active OXYGEN PER HOUR 01/19 0531 Complete PT GAIT TRNG 01/19 UNK Complete PT FUNCTIONAL TRN 15 MIN 01/19 UNK Complete OT FUNCTIONAL TRN 15 MIN 01/19 UNK Complete OT EXERCISE 15MIN 01/19 UNK Complete OT ADL 01/19 UNK Complete Consultants: cardiology, cardiovascular surgery, hospitalist, nephrology Plan discussed with: patient, nurse, interdisc c are team Rehab attestation: Face to face exam completed. Treatment plan disc ussed with patient. Meets continued stay criteria. Agree with interdiscipl inary treatment plan. at 1353 [facility] #:[id number] END OF REPORT 2022-01-18 21:54:00-00:00 [facility] Nephrology Progress Note REPORT#:[id number] REPORT STATUS: Signed DATE:01/18/22 TIME: 2153 PATIENT: SAÚL GILES UNIT #: [id number] ROOM/BED: [place] [address] : 43 AGE: 76 SEX: F ATTEND: Shaun Landry MD ADM AUTHOR: Suki Fuchs MD * ALL edits or amendments must be made on the [facility]/computer document * Subjective Chief complaint: CAD, S/P CABG HPI: This is a 76-year-old female who has past medica l history of hypertension, diabetes, coronary artery disease, atrial fibril lation who presented with worsening shortness of breath and on further wor k-up was 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 She was with normal kidney function prior to surgery and afte r her surgery she began to develop oliguria. Her procedure was done without any complications but after her surgery she did require pressor support for hypotension and she was intubated for respiratory acidosis and hypoxia a nd she was treated with vancomycin for infection treatment. She recovered kidney function and has been on diuretics for hypervolemia which has also imp roved significantly. 01/13 She was seen in rehab today and was doin g well, nursing staff reporting eating well. 01/18 Complaining of SOB. Otherwis e no distress. Lasix increased from PO dosing to IV. Objective General VS/I O: Vital Signs: Date Time Temp Pulse Resp B/P B/P Pulse O2 O2 F low FiO2 Mean Ox Delivery Rate 01/18 2055 72 92 01/18 2055 92 Nasal 2 cannula 01/18 1935 36.6 72 18 150/80 103.2 92 CPAP 01/18 1609 36.6 73 18 124/53 76.3 92 Nasal cannula 01/18 1023 Nasal 2 cannula 01/19 0833 99 Nasal 2 cannula 01/18 0736 36.8 72 16 147/69 94.7 97 Nasal cannula 01/18 0632 Nasal 3 cannula 01/17 2356 36.7 74 16 132/75 93.7 97 24 hour I O ending at 0700: 01/18 0700 01/17 1900 Intake Total Output Total 450 1500 Balance -450 -1500 Number 0 0 Incontinent Voids Number Voids 2 1 Output, Urine 450 1500 PATIENT WEIGHT: Weight (lb): 252 Weight (oz): 13.92 Weight (kg): 114.700 Physical Exam General appearance: alert, awake, oriented Head/eyes: atraumatic, EOMI ENT: moist mucous membranes, normal nose Neck: no JVD, no lymphadenopathy Cardiovascular: normal heart sounds, regular rat e and rhythm Respiratory: aerating well, clear to auscultatio n Abdomen: non-tender, soft Genitourinary: no bladder distention, no flank p ain Extremities: pitting edema, no gangrene, no swel ling Diagnosis, Assessment Plan Free Text A P: This is a 76-year-old female known to have hyper tension, diabetes, atrial fibrillation, s/p permanent pacemaker and histor y of ablation presenting with shortness of breath and found to have multivesse l coronary artery disease therefore she had CABG on December 19 after which she has developed oliguria. Nephrology is following for: 1. Acute kidney injury: Most likely it i s prerenal (cardiorenal), she has been hypotensive postoperatively with require ment for pressor support and inotropic support. Resolved with stable hemodynamics 2. Hypervolemia:Improved, on low dose lasix. 3. Hypokalemia: Plan to replace nd monitor close ly. 4. Metabolic alkalosis secondary to diur etics. Plan to monitoe and give diamox if worsens. 01/13 1. Acute kidney injury: Resolved with stable hemodynamics. 2. Hypervolemia:Improved, on low dose lasix.Dose increased to 40 Q12H as she was looking volume overloaded. 3. Hypokalemia: Plan to replace and monitor clos faustina. 4. Metabolic alkalosis secondary to diuretics. P juan to monitor and continue diamox. 01/16 1. Acute kidney injury: Resolved with stable hemodynamics. 2. Hypervolemia:Improved, on low dose lasix.Dose increased to 40 Q12H as she was looking volume overloaded. No staying well. 3. Hypokalemia: Plan to repl cherelle and monitor closely.Lisinopril helping keep her potassium better. 4. Metabolic alkalosis secondary to diuretics. P juan to monitor and continue diamox. 01/17 1. Acute kidney injury: Resolved with stable hemodynamics. 2. Hypervolemia:She was complaining of w orsening SOB so plan to follow chest x ray and give more lasix if she has pulmonary ant ma. She is on low dose Q12H. 3. Hypokalemia: Plan to repl cherelle and monitor closely.Lisinopril helping keep her potassium better. 4. Metabolic alkalosis secondary to diuretics. P juan to monitor and continue diamox. 01/18 1. Acute kidney injury: Resolved with stable hemodynamics. 2. Hypervolemia:She was complaining of w orsening SOB so plan to follow chest x ray and give more lasix if she has pulmonary ant ma. She is on low dose Q12H. Lasix switched to IV dosing so plan to continue same for today. 3. Hypokalemia: Plan to repl cherelle and monitor closely.Lisinopril helping keep her potassium better. 4. Metabolic alkalosis secondary to diuretics. P juan to monitor and continue diamox. Consultants: cardiology, cardiovascular surgery, hospitalist, nephrology Electronically Signed by Suki Fuchs MD on at 2156 RPT #:[id number] END OF REPORT 2022-01-18 10:58:00-00:00 [facility] Hospitalist Progress Note REPORT#:[id number] REPORT STATUS: Signed DATE:01/18/22 TIME: 1058 PATIENT: SAÚL GILES UNIT #: [id number] ROOM/BED: [place] [address] : 43 AGE: 76 SEX: F ATTEND: Shaun Landry MD ADM AUTHOR: Meryl Rosa MD * ALL edits or amendments must be made on the [employer]/computer document * Subjective Chief complaint: she complaint of mild sob . Objective General VS/I O: Vital Signs: Date Time Temp Pulse Resp B/P B/P Pulse O2 O2 F low FiO2 Mean Ox Delivery Rate 01/18 1023 Nasal 2 cannula 01/18 833 99 Nasal 2 cannula 01/19 736 36.8 72 16 147/69 94.7 97 Nasal cannula 01/19 632 Nasal 3 cannula 01/18 2356 36.7 74 16 132/75 93.7 97 01/18 2128 73 18 154/83 106.5 91 01/17 2057 99 CPAP 01/17 2011 36.6 70 18 132/76 94.8 96 01/18 2000 Nasal 4 cannula 01/17 1649 36.6 72 18 131/75 93.6 100 24 hour I O ending at 0700: 01/18 0700 01/17 1900 Intake Total Output Total 450 1500 Balance -450 -1500 Number 0 0 Incontinent Voids Number Voids 2 1 Output, Urine 450 1500 PATIENT WEIGHT: Weight (lb): 256 Weight (oz): 11.65 Weight (kg): 116.450 Medications: Active Meds + DC'd Last 24 Hrs Amiodarone HCl (CORDARONE) 200 MG DAILY PO Acetazolamide (DIAMOX) 250 MG Q12HR PO Acetylcysteine (MUCOMYST FOR RT) 200 MG RTQ6H NE N PRN NEB Sodium Chloride (SODIUM CHLORIDE) 4 ML RTBID PRN PRN NEB Magnesium Chloride (MAG 64MG) 64 MG BID PO Furosemide (LASIX) 40 MG BID 9A 5P PO Lisinopril (ZESTRIL) 2.5 MG DAILY PO Ascorbic Acid (ASCORBIC ACID) 500 MG BID PO Bisacodyl (DULCOLAX) 10 MG DAILY PRN PRN RECTAL Potassium Chloride (POTASSIUM CHLORIDE 20MEQ TAB .ER) 40 MEQ DAILY PRN PRN PO Aspirin (ASPIRIN) 81 MG DAILY PO Clopidogrel Bisulfate (Plavix) 75 MG DAILY PO Cyanocobalamin (Vitamin B-12 500 mcg tab) 500 MC G DAILY PO Ferrous Sulfate (FERROUS SULFATE) 325 MG DAILY P O Insulin Glargine (Lantus/Semglee) 30 UNIT DAILY SUBQ Sodium Chloride (SODIUM CHLORIDE) 10 ML BID IV Insulin Human Lispro (HUMALOG) 0 AC HS SUBQ Pantoprazole (PROTONIX) 40 MG DAILY@0600 PO Albuterol/Ipratropium (DUONEB) 3 ML RTQ6H NEB Glucagon (GLUCAGON) 1 MG ASDIR PRN IM Acetaminophen (TYLENOL) 650 MG Q4H PRN PRN PO Bisacodyl (DULCOLAX) 5 MG DAILY PRN PRN PO Dextrose/Water (DEXTROSE 10% IN WATER) 250 ML DIR PRN IV (CKD) Atorvastatin Calcium (LIPITOR) 40 MG 2100 PO Docusate Sodium (COLACE) 100 MG BID PO Insulin Glargine (Lantus/Semglee) 20 UNIT BEDTIM E SUBQ Melatonin (Melatonin) 3 MG BEDTIME PO Metoprolol Tartrate (LOPRESSOR) 25 MG Q12HR PO Ondansetron HCl (ZOFRAN ODT) 4 MG TID PRN PRN PO Sennosides (Senna Lax 8.6 MG TABLET) 17.2 MG BED TIME PO Physical Exam General appearance: alert, awake, oriented Head/Eyes: atraumatic, normal conjunctiva/sclera , normal eyelids/periorb. 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, 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, CNII-XII intact, normal speech, no motor deficits, no sensory deficits Skin: dry, intact Results Findings/Data: Laboratory Tests 01/18 0511 2010 1653 1144 Chemistry Sodium (134 - 147 mEq/L) 142 Potassium (3.4 - 5.0 mEq/L) 3.4 Chloride (100 - 108 mEq/L) 102 Carbon Dioxide (21 - 33 mEq/l) 33 Anion Gap (0 - 20) 10 BUN (7 - 18 mg/dL) 16 Creatinine (0.6 - 1.3 mg/dL) 0.8 Glomerular Filtr Rate (70 - 80) 75.4 Glucose (70 - 110 mg/dL) 80 POC Glucose (70 - 110 MG/DL) 78 142 H 157 H 13 2 H Calcium (8.0 - 10.5 mg/dL) 9.3 Ionized Calcium Gigi (1.09 - 1.30 1.15 MMOL/L) Radiology data: Recent Impressions: RADIOLOGY - XR CHEST 2 V 01/17 1445 Report Impression - Status: SIGNED Entered: 01/17/2022 1501 IMPRESSION: Progression of pulmonary edema. Impression By: [id number] - Phyllis woods M.D. Diagnosis, Assessment Plan Consultants: cardiology, cardiovascular surgery, hospitalist, nephrology Free Text DxA P Notes Free text DxA P notes: general weakness CAD - post CABG CHF HTN DM HLD afib RONA morbid obesity CAD -- cardiology consult CV surgeon consult CABG --post procedure ASA/lipitor Echocardiogram showed EF 55 to 59% edema --lasix /zaroxolyn -- monitor renal function weakness --PT/OT as rehab afib -- rate control -- xarelto/amiodarone /metoprolol HTN-- metoprolol/norvasc DM-- on lantus -- sliding scale HLD-- on lipitor RONA--cpap as nigth DVTP -- xarelto 01/09-- she feel tire after PT -- complaint of sob at night --bipap at night -- continue lasix -- replace K 01/10 Continue bowel regimen, adjust as needed i f no results. Replace K. 01/11 +BM. Replace K+, discussed with RN to give PRN K on - she complaint of tire - not sleep well last night -- continue bipap at night -- continue PT/OT 01/13 -- she sit on the chair . 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 less sob -- continue PT/OT 01/16- she is doing well with PT/OT 01/17- she is tire -- no cp no sob -- continue PT/OT 01/18- she complaint of sob -- CXR -- Progression of pulmonary edema. -- lasix change to iv -- continue PT/OT Electronically Signed by Meryl Rosa MD on 2 at 1104 RPT #:[id number] END OF REPORT 2022-01-18 06:35:00-00:00 [facility] Rehab Progress Note REPORT#:[id number] REPORT STATUS: Signed DATE:01/18/22 TIME: 634 PATIENT: SAÚL GILES UNIT #: [id number] ROOM/BED: [facility] [place] : 43 AGE: 76 SEX: F ATTEND: Shaun Landry MD ADM AUTHOR: Herberth Pantoja * ALL edits or amendments must be made on the [employer]/computer document * Subjective Chief complaint: Rehab follow-up Sitting up in chair Breathing okay Using CPAP at night Patient on 97 to 99% on 3 L NAD, eating 50-80% States BLE edema improving + BM Denies GOLD/N/V/D/CP 14 systems reviewed and neg. except that above. Objective General VS: Vital Signs: Date Time Temp Pulse Resp B/P B/P Pulse O2 O2 F low FiO2 Mean Ox Delivery Rate 01/18 0632 Nasal 3 cannula 01/18 2356 98.1 74 16 132/75 93.7 97 01/178 73 18 154/83 106.5 91 01/17 2057 99 CPAP 01/17 2011 97.9 70 18 132/76 94.8 96 01/18 2000 Nasal 4 cannula 01/17 1649 97.9 72 18 131/75 93.6 100 01/17 0756 98 Nasal 2 cannula 01/17 0734 97.3 71 19 136/78 97.0 98 Nasal cannula PATIENT WEIGHT: Weight (lb): 256 Weight (oz): 11.65 Weight (kg): 116.450 Functional Progress Functional progress: PT daily note comment: S; PT REPORTS NO COMPLAINTS OF SHARP PAIN WITH ACTIVITIES,CONTINUES TO REPORT NOT SLEEPING WEL . O: PT WAS SEEN FOR 90MIN OF THERAPY BEGINNING W/ ASSIST TO RESTROOM SBA,DRESS SLEF PREQUIRES MIN-A WITH AL SO WRAPPING FEET/LOW BI LE,GAIT TRAINING W/RW50'X2,35,X4 40 ' EDUCATE PT ON SAFETY W/FALL PREVENTIO,FALL RECOVEYR,SAFETY RW MGMT,ATTEMPT USE OF ROLLAOR,THER EX IN SITTI NG BRSDT PORTQW START OVER. A; PT MAKING STEADY PROGRESS WITH FUNCTIONAL GOALS , SLOW MOVING AT TIMES DUE TO FATIGUE.EDUCATE PT ON SAFETY W/ RW MGMT. WC MOBILITY 50 SLOW MOVING,EDCATE PT ON SAFETY W/TRANSFERS,SAFETY W/.FALL PREVENTION,FALL RECOVERY. Physical Exam General appearance: obese, alert, awake Psych: alert, normal affect, oriented x 3 HEENT: anicteric, mucosal membranes moist, pupil s reactive to light, sclera clear Neck: non-tender, supple, no JVD Cardiovascular: regular rate rhythm, S1/S2, no m urmur Respiratory: diminished breath sounds, on oxygen , clear bilaterally Abdomen: obese, bowel sounds present, non-disten ded, soft, non-tender Skin: dry, normal temperature, no rash, INCISION S: CDI, sutures x 2. 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 Results Findings/Data: Laboratory Tests: 01/18 1653 1144 Chemistry Sodium (134 - 147 mEq/L) 142 Potassium (3.4 - 5.0 mEq/L) 3.4 Chloride (100 - 108 mEq/L) 102 Carbon Dioxide (21 - 33 mEq/l) 33 Anion Gap (0 - 20) 10 BUN (7 - 18 mg/dL) 16 Creatinine (0.6 - 1.3 mg/dL) 0.8 Glomerular Filtr Rate (70 - 80) 75.4 Glucose (70 - 110 mg/dL) 80 POC Glucose (70 - 110 MG/DL) 78 142 H 157 H 132 H Calcium (8.0 - 10.5 mg/dL) 9.3 Ionized Calcium Gigi (1.09 - 1.30 1.15 MMOL/L) 01/17 1020 Hematology WBC (4.5 - 11.0 x10 3/uL) 4.4 L RBC (3.54 - 5.02 x10 6/uL) 2.87 L Hgb (11.0 - 15.0 g/dL) 10.1 L Hct (33.0 - 45.0 %) 32.7 L MCV (81.0 - 99.0 fL) 113.9 H MCH (27.0 - 33.0 pg) 35.2 H MCHC (33.0 - 37.0 g/dL) 30.9 L RDW (11.5 - 14.5 %) 17.8 H Plt Count (150 - 400 x10 3/uL) 111 L MPV (7.0 - 9.0 fL) 11.0 H Neut % (Auto) (56.0 - 77.0 %) 76.0 Lymph % (Auto) (14.0 - 32.0 %) 8.6 L Barron % (Auto) (4.8 - 9.0 %) 11.4 H Eos % (Auto) (0.3 - 3.7 %) 3.0 Baso % (Auto) (0.0 - 2.0 %) 0.5 Neut # (Auto) (2.0 - 7.6 x10 3/uL) 3.35 Lymph # (Auto) (1.0 - 3.8 x10 3/uL) 0.38 L Barron # (Auto) (0.1 - 0.8 x10 3/uL) 0.50 Eos # (Auto) (0.0 - 0.2 x10 3/uL) 0.13 Baso # (Auto) (0.0 - 0.2 x10 3/uL) 0.02 Abs Immat Gran (auto) (0.00 - 0.03 x10 3/uL) 0. 02 Add Manual Diff NO Immature Gran % (0.0 - 2.0 %) 0.5 Nucleated RBC % (0 - 0 %) 0.0 Nucleated RBCs # (Man) (0.0 - 0.1 x10 3/uL) 0.0 0 Diagnosis, Assessment Plan Free Text A P: Assessment: Critical illness myopathy Constrictive pericarditis Severe mitral regurgitation CAD 12/19: Status post CABG x1 (ROBERTS to LAD), ILAp, p ericardectomy 12/19: S/p MVR 01/06: Echo-EF 55-59%, mild to moderately dilate d right ventricle, LA and RA dilatation, normally functioning MV bioprosthesi s Chronic AF, s/p PPM/ablation-rate controlled-pac ed Volume overload-BLE edema History of lymphedema Generalized weakness Deconditioning Acute blood loss anemia Hypertension Morbid obesity HLD Crohn's disease Smoker Hypoxic respiratory failure Hypokalemia/hypomagnesemia secondary to diuretic s MARCELLO resolved Significant impaired ADLs, mobility, gait, marian ce and endurance Plan: -Comprehensive inpatient rehabilitation with physical, occupational and speech therapy 3 hours a day for 5 to 6 days per week-2 06/19 rehabilitation physician supervision-05/10 rehabilitat ion nursing care-Case management for safe discharge planning-Rehab MD to monitor comorbidities and f unctional progress. -Decubitus prevention-protective hydrating lotio n-turn every 2 hours-offload -Bowel program-MiraLAX and Senokot -Nutrition, monitor the michael ent's p.o. intake, check albumin 3.5 and prealbumin, dietary consult, protein supplements. -Strict fall and safety precaution -DVT prophylaxis-SCDs/antiembolism stockings -GI prophylaxis-Protonix -Glycemic control-continue insulin-blood sugars good-as per medicine -TGJ-zwocfpli-rblpwrcsby following -Respiratory insufficiency-wean O2-postop pulmon shruthi protocol, encourage I-S, deep cough and breathing exercises, slowly impro ving -CAD s/p CABG, MVR, and ILAA-on DAPT post-op car e per CTS -Acute/chr AF s/p PPM/ablation. Rate controlled, paced rhythm-had ILAA during bypass, no need for AC-as per cardiology -Volume nfctmsqy-ymqgxlge-fb diuretics, strict I 's and O's Daily -HTN. BP stable-on metoprolol -HLD-On statins. -Crohn's disease. Per IM. -Early mobilization-OOB to chair -Work on bed mobility, transfer training , ADLs, pre-gait and gait exercises as tolerable. -Increase endurance and strength -Pain management -Consultants-cardiology, CVS, medicine, nephrolo gy -Labs reviewed-WBC normal, hemoglobin im proved 9.8 improved, platelets normal, potassium 3.5, creatinine 1.0, magnesium 1.77, BNP 232, 180 -replete potassium and magnesium as needed 01/09: SOB-chest x-ray-impro laury aeration bilaterally. Residual interstitial and perihilar opacities. Subsegmental atelectasis. R esidual small volume pleural effusions. -Continue CPAP at night -Encourage I-S and ambulation -BLE edema-ANA PAULA hose and elevation, exercise, diu retics -Diuresis as per cardiology -Anemia-continue ferrous sulfate, B12, vitamin C monitor H H -Monitor telemetry -Nausea-Zofran -Continue current medications -Sternal incision intact and healing. Co ntinue sternal precautions for 6 weeks -Monitor complains of being tired and sleepy -Therapeutic rest break given in between due to fair activity tolerance and patient reported Omaira RPE 4 (1-10) somewhat Hard SOB during activity. -Patient breathing better and working with thera pist -Patient reports urinating frequently but only v olivia small amounts. Check bladder scan and UA -Labs reviewed -Advance therapies as tolerated PM R Please see team note. Plan and goals discussed with the patient. I agree with the teams finding ELOS: [01/21] AR-eviz-iorih with daughter-HH DME-RW, wheelchair TT 33 min>50% with discussing with patient about SOB improved, progress with therapies, rehab plan of care, goals, needs, and medical issues, examination. MAR and EMR reviewed. All Questions answered. Rehab attestation: Face to face exam completed. Treatment plan disc ussed with patient. Meets continued stay criteria. Agree with interdiscipl inary treatment plan. at 1842 RPT #:[id number] END OF REPORT 2022-01-17 21:52:00-00:00 [facility] REPORT#:[id number] REPORT STATUS: Signed DATE:01/17/22 TIME: 2151 PATIENT: SAÚL GILES UNIT #: [id number] ROOM/BED: [place] [address] : 43 AGE: 76 SEX: F ATTEND: Shaun Landry MD ADM AUTHOR: Suki Fuchs MD * ALL edits or amendments must be made on the [employer]/computer document * Subjective Chief complaint: CAD, S/P CABG HPI: This is a 76-year-old female who has past medica l history of hypertension, diabetes, coronary artery disease, atrial fibril lation who presented with worsening shortness of breath and on further wor k-up was 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 She was with normal kidney function prior to surgery and afte r her surgery she began to develop oliguria. Her procedure was done without any complications but after her surgery she did require pressor support for hypotension and she was intubated for respiratory acidosis and hypoxia a nd she was treated with vancomycin for infection treatment. She recovered kidney function and has been on diuretics for hypervolemia which has also imp roved significantly. 01/13 She was seen in rehab today and was doin g well, nursing staff reporting eating well. 01/17 Complaining of SOB. Otherwise no distress. Objective General VS/I O: Vital Signs: Date Time Temp Pulse Resp B/P B/P Pulse O2 O2 F low FiO2 Mean Ox Delivery Rate 01/18 2128 73 18 154/83 106.5 91 01/17 2057 99 CPAP 01/17 2011 36.6 70 18 132/76 94.8 96 01/18 2000 Nasal 4 cannula 01/17 164 36.6 72 18 131/75 93.6 100 01/17 0756 98 Nasal 2 cannula 01/17 07 36.3 71 19 136/78 97.0 98 Nasal cannula 01/16 2335 76 94 01/16 2334 76 16 91 01/16 2318 71 18 136/71 92.6 85 24 hour I O ending at 0700: 01/17 0700 01/16 1900 Intake Total 480 280 Output Total 1200 350 Balance -720 -70 Intake, Oral 480 280 Number 1 Bowel Movements Number 0 0 Incontinent Voids Number Voids 4 4 Output, Urine 1200 350 Patient 116.45 kg Weight Weight Standing scale Measurement Method PATIENT WEIGHT: Weight (lb): 256 Weight (oz): 11.65 Weight (kg): 116.450 Physical Exam General appearance: alert, awake, oriented Head/eyes: atraumatic, EOMI ENT: moist mucous membranes, normal nose Neck: no JVD, no lymphadenopathy Cardiovascular: normal heart sounds, regular rat e and rhythm Respiratory: aerating well, clear to auscultatio n Abdomen: non-tender, soft Genitourinary: no bladder distention, no flank p ain Extremities: pitting edema, no gangrene, no swel ling Diagnosis, Assessment Plan Free Text A P: This is a 76-year-old female known to have hyper tension, diabetes, atrial fibrillation, s/p permanent pacemaker and histor y of ablation presenting with shortness of breath and found to have multivesse l coronary artery disease therefore she had CABG on December 19 after which she has developed oliguria. Nephrology is following for: 1. Acute kidney injury: Most likely it i s prerenal (cardiorenal), she has been hypotensive postoperatively with require ment for pressor support and inotropic support. Resolved with stable hemodynamics 2. Hypervolemia:Improved, on low dose lasix. 3. Hypokalemia: Plan to replace nd monitor close ly. 4. Metabolic alkalosis secondary to diur etics. Plan to monitoe and give diamox if worsens. 01/13 1. Acute kidney injury: Resolved with stable hemodynamics. 2. Hypervolemia:Improved, on low dose lasix.Dose increased to 40 Q12H as she was looking volume overloaded. 3. Hypokalemia: Plan to replace and monitor clos faustina. 4. Metabolic alkalosis secondary to diuretics. P juan to monitor and continue diamox. 01/16 1. Acute kidney injury: Resolved with stable hemodynamics. 2. Hypervolemia:Improved, on low dose lasix.Dose increased to 40 Q12H as she was looking volume overloaded. No staying well. 3. Hypokalemia: Plan to repl cherelle and monitor closely.Lisinopril helping keep her potassium better. 4. Metabolic alkalosis secondary to diuretics. P juan to monitor and continue diamox. 01/17 1. Acute kidney injury: Resolved with stable hemodynamics. 2. Hypervolemia:She was complaining of w orsening SOB so plan to follow chest x ray and give more lasix if she has pulmonary ant ma. She is on low dose Q12H. 3. Hypokalemia: Plan to repl cherelle and monitor closely.Lisinopril helping keep her potassium better. 4. Metabolic alkalosis secondary to diuretics. P juan to monitor and continue diamox. Consultants: cardiology, cardiovascular surgery, hospitalist, nephrology Electronically Signed by Suki Fuchs MD on at 2321 RPT #:[id number] END OF REPORT 2022-01-17 13:14:00-00:[address] [facility] ([facility]) Hospitalist Progress Note REPORT#:[id number] REPORT STATUS: Signed DATE:01/17/22 TIME: 1314 PATIENT: SAÚL GILES UNIT #: [id number] ROOM/BED: [place] [address] : 43 AGE: 76 SEX: F ATTEND: Shaun Landry MD ADM AUTHOR: Meryl Rosa MD * ALL edits or amendments must be made on the [employer]/computer document * Subjective Chief complaint: she is tire today no cp Review of Systems Constitutional: Reports: fatigue, generalized weakness. Denies: fever, lethargy. Respiratory: Denies: pneumonia, productive cough (sputum), SO B, wheezing. Cardiovascular: Reports: edema. Denies: chest pain, DOUGLASS (dyspnea on exertion), orthopnea. GI: Denies: abdominal pain, nausea, vomiting. : Denies: flank pain. Objective General VS/I O: Vital Signs: Date Time Temp Pulse Resp B/P B/P Pulse O2 O2 F low FiO2 Mean Ox Delivery Rate 01/17 0756 98 Nasal 2 cannula 01/17 07 36.3 71 19 136/78 97.0 98 Nasal cannula 01/16 2335 76 94 01/16 2334 76 16 91 01/16 2318 71 18 136/71 92.6 85 01/16 2131 99 Nasal 2 cannula 01/17 2000 Nasal 2 cannula 01/16 1932 36.7 75 18 149/80 103.0 99 01/16 1530 36.5 70 17 139/72 94.3 98 24 hour I O ending at 0700: 01/17 0700 01/16 1900 Intake Total 480 280 Output Total 1200 350 Balance -720 -70 Intake, Oral 480 280 Number 1 Bowel Movements Number 0 0 Incontinent Voids Number Voids 4 4 Output, Urine 1200 350 Patient 116.45 kg Weight Weight Standing scale Measurement Method PATIENT WEIGHT: Weight (lb): 256 Weight (oz): 11.65 Weight (kg): 116.450 Medications: Active Meds + DC'd Last 24 Hrs Amiodarone HCl (CORDARONE) 200 MG DAILY PO Acetazolamide (DIAMOX) 250 MG Q12HR PO Acetylcysteine (MUCOMYST FOR RT) 200 MG RTQ6H NE N PRN NEB Sodium Chloride (SODIUM CHLORIDE) 4 ML RTBID PRN PRN NEB Magnesium Chloride (MAG 64MG) 64 MG BID PO Furosemide (LASIX) 40 MG BID 9A 5P PO Lisinopril (ZESTRIL) 2.5 MG DAILY PO Ascorbic Acid (ASCORBIC ACID) 500 MG BID PO Bisacodyl (DULCOLAX) 10 MG DAILY PRN PRN RECTAL Potassium Chloride (POTASSIUM CHLORIDE 20MEQ TAB .ER) 40 MEQ DAILY PRN PRN PO Aspirin (ASPIRIN) 81 MG DAILY PO Clopidogrel Bisulfate (Plavix) 75 MG DAILY PO Cyanocobalamin (Vitamin B-12 500 mcg tab) 500 MC G DAILY PO Ferrous Sulfate (FERROUS SULFATE) 325 MG DAILY P O Insulin Glargine (Lantus/Semglee) 30 UNIT DAILY SUBQ Polyethylene Glycol (MIRALAX) 17 GM DAILY PO (DC ) Sodium Chloride (SODIUM CHLORIDE) 10 ML BID IV Insulin Human Lispro (HUMALOG) 0 AC HS SUBQ Pantoprazole (PROTONIX) 40 MG DAILY@0600 PO Albuterol/Ipratropium (DUONEB) 3 ML RTQ6H NEB Glucagon (GLUCAGON) 1 MG ASDIR PRN IM Acetaminophen (TYLENOL) 650 MG Q4H PRN PRN PO Bisacodyl (DULCOLAX) 5 MG DAILY PRN PRN PO Dextrose/Water (DEXTROSE 10% IN WATER) 250 ML DIR PRN IV (CKD) Atorvastatin Calcium (LIPITOR) 40 MG 2100 PO Docusate Sodium (COLACE) 100 MG BID PO Insulin Glargine (Lantus/Semglee) 20 UNIT BEDTIM E SUBQ Melatonin (Melatonin) 3 MG BEDTIME PO Metoprolol Tartrate (LOPRESSOR) 25 MG Q12HR PO Ondansetron HCl (ZOFRAN ODT) 4 MG TID PRN PRN PO Sennosides (Senna Lax 8.6 MG TABLET) 17.2 MG BED TIME PO Physical Exam General appearance: alert, awake, oriented Head/Eyes: atraumatic, normal conjunctiva/sclera , normal eyelids/periorb. 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, 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, CNII-XII intact, normal speech, no motor deficits, no sensory deficits Skin: dry, intact Results Findings/Data: Laboratory Tests 01/17 01/17 01/16 01/16 1144 0514 1941 1602 Chemistry POC Glucose (70 - 110 MG/DL) 132 H 119 H 200 H 127 H Laboratory Tests 11/05 1020 Hematology WBC (4.5 - 11.0 x10 3/uL) 4.4 L RBC (3.54 - 5.02 x10 6/uL) 2.87 L Hgb (11.0 - 15.0 g/dL) 10.1 L Hct (33.0 - 45.0 %) 32.7 L MCV (81.0 - 99.0 fL) 113.9 H MCH (27.0 - 33.0 pg) 35.2 H MCHC (33.0 - 37.0 g/dL) 30.9 L RDW (11.5 - 14.5 %) 17.8 H Plt Count (150 - 400 x10 3/uL) 111 L MPV (7.0 - 9.0 fL) 11.0 H Neut % (Auto) (56.0 - 77.0 %) 76.0 Lymph % (Auto) (14.0 - 32.0 %) 8.6 L Barron % (Auto) (4.8 - 9.0 %) 11.4 H Eos % (Auto) (0.3 - 3.7 %) 3.0 Baso % (Auto) (0.0 - 2.0 %) 0.5 Neut # (Auto) (2.0 - 7.6 x10 3/uL) 3.35 Lymph # (Auto) (1.0 - 3.8 x10 3/uL) 0.38 L Barron # (Auto) (0.1 - 0.8 x10 3/uL) 0.50 Eos # (Auto) (0.0 - 0.2 x10 3/uL) 0.13 Baso # (Auto) (0.0 - 0.2 x10 3/uL) 0.02 Abs Immat Gran (auto) (0.00 - 0.03 x10 3/uL) 0. 02 Add Manual Diff NO Immature Gran % (0.0 - 2.0 %) 0.5 Nucleated RBC % (0 - 0 %) 0.0 Nucleated RBCs # (Man) (0.0 - 0.1 x10 3/uL) 0.0 0 Diagnosis, Assessment Plan Consultants: cardiology, cardiovascular surgery, hospitalist, nephrology Free Text DxA P Notes Free text DxA P notes: general weakness CAD - post CABG CHF HTN DM HLD afib RONA morbid obesity CAD -- cardiology consult CV surgeon consult CABG --post procedure ASA/lipitor Echocardiogram showed EF 55 to 59% edema --lasix /zaroxolyn -- monitor renal function weakness --PT/OT as rehab afib -- rate control -- xarelto/amiodarone /metoprolol HTN-- metoprolol/norvasc DM-- on lantus -- sliding scale HLD-- on lipitor RONA--cpap as nigth DVTP -- xarelto 01/09-- she feel tire after PT -- complaint of sob at night --bipap at night -- continue lasix -- replace K 01/10 Continue bowel regimen, adjust as needed i f no results. Replace K. 01/11 +BM. Replace K+, discussed with RN to give PRN K on - she complaint of tire - not sleep well last night -- continue bipap at night -- continue PT/OT 01/13 -- she sit on the chair . 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 less sob -- continue PT/OT 01/16- she is doing well with PT/OT 01/17- she is tire -- no cp no sob -- continue PT/OT Electronically Signed by Meryl Rosa MD on 2 at 1631 RPT #:[id number] END OF REPORT 2022-01-17 06:33:00-00:00 [facility] REPORT#:[id number] REPORT STATUS: Signed DATE:01/17/22 TIME: 632 PATIENT: SAÚL GILES UNIT #: [id number] ROOM/BED: [place] [address] : 43 AGE: 76 SEX: F ATTEND: Shaun Landry MD ADM AUTHOR: Herberth Pantoja * ALL edits or amendments must be made on the [employer]/computer document * Subjective Chief complaint: Rehab follow-up States doing better Using CPAP at night Patient on 2 L, sats 96 % NAD, eating 50-80% BLE edema improved + BM Denies GOLD/N/V/D/CP 14 systems reviewed and neg. except that above. Objective General VS: Vital Signs: Date Time Temp Pulse Resp B/P B/P Pulse O2 O2 Flow FiO2 Mean Ox Delivery Rate 01/16 2335 76 94 01/16 2334 76 16 91 01/16 2318 71 18 136/71 92.6 85 01/161 99 Nasal 2 cannula 01/17 2000 Nasal 2 cannula 01/16 193 98.1 75 18 149/80 103.0 99 01/16 1530 97.7 70 17 139/72 94.3 98 01/16 1122 Nasal 2 cannula 01/16 09 Nasal 2 cannula 01/16 0718 97.7 73 17 141/70 93.6 92 PATIENT WEIGHT: Weight (lb): 256 Weight (oz): 11.65 Weight (kg): 116.450 Medications: Active Meds + DC'd Last 24 Hrs Amiodarone HCl (CORDARONE) 200 MG DAILY PO Acetazolamide (DIAMOX) 250 MG Q12HR PO Acetylcysteine (MUCOMYST FOR RT) 200 MG RTQ6H NE N PRN NEB Sodium Chloride (SODIUM CHLORIDE) 4 ML RTBID PRN PRN NEB Magnesium Chloride (MAG 64MG) 64 MG BID PO Furosemide (LASIX) 40 MG BID 9A 5P PO Lisinopril (ZESTRIL) 2.5 MG DAILY PO Ascorbic Acid (ASCORBIC ACID) 500 MG BID PO Bisacodyl (DULCOLAX) 10 MG DAILY PRN PRN RECTAL Potassium Chloride (POTASSIUM CHLORIDE 20MEQ TAB .ER) 40 MEQ DAILY PRN PRN PO Aspirin (ASPIRIN) 81 MG DAILY PO Clopidogrel Bisulfate (Plavix) 75 MG DAILY PO Cyanocobalamin (Vitamin B-12 500 mcg tab) 500 MC G DAILY PO Ferrous Sulfate (FERROUS SULFATE) 325 MG DAILY P O Insulin Glargine (Lantus/Semglee) 30 UNIT DAILY SUBQ Polyethylene Glycol (MIRALAX) 17 GM DAILY PO Sodium Chloride (SODIUM CHLORIDE) 10 ML BID IV Insulin Human Lispro (HUMALOG) 0 AC HS SUBQ Pantoprazole (PROTONIX) 40 MG DAILY@0600 PO Albuterol/Ipratropium (DUONEB) 3 ML RTQ6H NEB Glucagon (GLUCAGON) 1 MG ASDIR PRN IM Acetaminophen (TYLENOL) 650 MG Q4H PRN PRN PO Bisacodyl (DULCOLAX) 5 MG DAILY PRN PRN PO Dextrose/Water (DEXTROSE 10% IN WATER) 250 ML DIR PRN IV (CKD) Atorvastatin Calcium (LIPITOR) 40 MG 2100 PO Docusate Sodium (COLACE) 100 MG BID PO Insulin Glargine (Lantus/Semglee) 20 UNIT BEDTIM E SUBQ Melatonin (Melatonin) 3 MG BEDTIME PO Metoprolol Tartrate (LOPRESSOR) 25 MG Q12HR PO Ondansetron HCl (ZOFRAN ODT) 4 MG TID PRN PRN PO Sennosides (Senna Lax 8.6 MG TABLET) 17.2 MG BED TIME PO Functional Progress Functional progress: PT daily note comment: S; PT REPORTS NO COMPLAINTS OF SHARP PAIN WITH ACTIVITIES,CONTINUES TO REPORT NOT SLEEPING WEL . O: PT WAS SEEN FOR 90MIN OF THERAPY BEGINNING W/ ASSIST TO RESTROOM SBA,DRESS SLEF PREQUIRES MIN-A WITH AL SO WRAPPING FEET/LOW BI LE,GAIT TRAINING W/RW50'X2,35,X4 40 ' EDUCATE PT ON SAFETY W/FALL PREVENTIO,FALL RECOVEYR,SAFETY RW MGMT,ATTEMPT USE OF ROLLAOR,[facility]. A; PT MAKING STEADY PROGRESS WITH FUNCTIONAL GOALS , SLOW MOVING AT TIMES DUE TO FATIGUE.EDUCATE PT ON SAFETY W/ RW MGMT. WC MOBILITY 50 SLOW MOVING,EDCATE PT ON SAFETY W/TRANSFERS,SAFETY W/.FALL PREVENTION,FALL RECOVERY. P; CONT. WITH PT PCO. Physical Exam General appearance: alert, awake Psych: alert, normal affect, oriented x 3 HEENT: anicteric, mucosal membranes moist, pupil s reactive to light, sclera clear Neck: non-tender, supple, no JVD Cardiovascular: regular rate rhythm, S1/S2, no m urmur Respiratory: diminished breath sounds, on oxygen , clear bilaterally Abdomen: obese, bowel sounds present, non-disten ded, soft, non-tender Skin: dry, normal temperature, no rash, INCISION S: CDI, sutures x 2. 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 Results Findings/Data: Laboratory Tests 01/1714 1941 1602 1139 0604 Chemistry POC Glucose (70 - 110 MG/DL) 119 H 200 H 127 H 117 H 98 01/16 01/16 01/15 01/15 0445 0445 1922 1533 Chemistry Sodium (134 - 147 mEq/L) 141 Potassium (3.4 - 5.0 mEq/L) 3.9 Chloride (100 - 108 mEq/L) 101 Carbon Dioxide (21 - 33 mEq/l) 35 H Anion Gap (0 - 20) 9 BUN (7 - 18 mg/dL) 16 Creatinine (0.6 - 1.3 mg/dL) 0.9 Glomerular Filtr Rate (70 - 80) 60.6 L Glucose (70 - 110 mg/dL) 58 L POC Glucose (70 - 110 MG/DL) 132 H 159 H Calcium (8.0 - 10.5 mg/dL) 9.5 Ionized Calcium Gigi (1.09 - 1.30 MMOL/L) 1.16 B-Natriuretic Peptide (0 - 100 PG/ML) 258.0 H 01/15 01/15 01/15 01/14 01/14 1103 0547 0455 1925 1523 Chemistry POC Glucose (70 - 110 MG/DL) 154 H 113 H 57 L 1 86 H 183 H 01/14 1059 Chemistry POC Glucose (70 - 110 MG/DL) 114 H Recent Impressions: RADIOLOGY - XR CHEST 1 V 01/14 09 Report Impression - Status: SIGNED Entered: 01/14/2022 1041 IMPRESSION: Minimal vascular congestion with subsegmental at electasis in the right midlung zone and opacity at the left lung base. Impression By: Nancy Stahl Diagnosis, Assessment Plan Free Text A P: Assessment: Critical illness myopathy Constrictive pericarditis Severe mitral regurgitation CAD 12/19: Status post CABG x1 (ROBERTS to LAD), ILAp, p ericardectomy 12/19: S/p MVR 01/06: Echo-EF 55-59%, mild to moderately dilate d right ventricle, LA and RA dilatation, normally functioning MV bioprosthesi s Chronic AF, s/p PPM/ablation-rate controlled-pac ed Volume overload-BLE edema History of lymphedema Generalized weakness Deconditioning Acute blood loss anemia Hypertension Morbid obesity HLD Crohn's disease Smoker Hypoxic respiratory failure Hypokalemia/hypomagnesemia secondary to diuretic s MARCELLO resolved Significant impaired ADLs, mobility, gait, marian ce and endurance Plan: -Comprehensive inpatient rehabilitation with physical, occupational and speech therapy 3 hours a day for 5 to 6 days per week-2 06/19 rehabilitation physician supervision-05/10 rehabilitat ion nursing care-Case management for safe discharge planning-Rehab MD to monitor comorbidities and f unctional progress. -Decubitus prevention-protective hydrating lotio n-turn every 2 hours-offload -Bowel program-MiraLAX and Senokot -Nutrition, monitor the michael ent's p.o. intake, check albumin 3.5 and prealbumin, dietary consult, protein supplements. -Strict fall and safety precaution -DVT prophylaxis-SCDs/antiembolism stockings -GI prophylaxis-Protonix -Glycemic control-continue insulin-blood sugars good-as per medicine -JZC-taxuclhp-xiazecimpb following -Respiratory insufficiency-wean O2-postop pulmon shruthi protocol, encourage I-S, deep cough and breathing exercises, slowly impro ving -CAD s/p CABG, MVR, and ILAA-on DAPT post-op car e per CTS -Acute/chr AF s/p PPM/ablation. Rate controlled, paced rhythm-had ILAA during bypass, no need for AC-as per cardiology -Volume yfowjjbi-pfhstmrz-pg diuretics, strict I 's and O's Daily -HTN. BP stable-on metoprolol -HLD-On statins. -Crohn's disease. Per IM. -Early mobilization-OOB to chair -Work on bed mobility, transfer training , ADLs, pre-gait and gait exercises as tolerable. -Increase endurance and strength -Pain management -Consultants-cardiology, CVS, medicine, nephrolo gy -Labs reviewed-WBC normal, hemoglobin im proved 9.8 improved, platelets normal, potassium 3.5, creatinine 1.0, magnesium 1.77, BNP 232, 180 -replete potassium and magnesium as needed 01/09: SOB-chest x-ray-impro laury aeration bilaterally. Residual interstitial and perihilar opacities. Subsegmental atelectasis. R esidual small volume pleural effusions. -Continue CPAP at night -Encourage I-S and ambulation -BLE edema-ANA PAULA hose and elevation, exercise, diu retics -Diuresis as per cardiology -Anemia-continue ferrous sulfate, B12, vitamin C monitor H H -Monitor telemetry -Nausea-Zofran -Continue current medications -Sternal incision intact and healing. Co ntinue sternal precautions for 6 weeks -Monitor complains of being tired and sleepy -Therapeutic rest break given in between due to fair activity tolerance and patient reported Omaira RPE 4 (1-10) somewhat Hard SOB during activity. -Patient breathing better and working with thera pist -Check labs. Magnesium 1.83-labs pending -Advance therapies as tolerated PM R Please see team note. Plan and goals discussed with the patient. I agree with the teams finding ELOS: [01/21] MU-xrie-lszav with daughter-HH DME-RW, wheelchair TT 33 min>50% with discussing with patient about SOB improved, progress with therapies, rehab plan of care, goals, needs, and medical issues, examination. MAR and EMR reviewed. All Questions answered. Rehab attestation: Face to face exam completed. Treatment plan disc ussed with patient. Meets continued stay criteria. Agree with interdiscipl inary treatment plan. at 0553 RPT #:[id number] END OF REPORT 2022-01-16 12:22:00-00:00 [facility] Hospitalist Progress Note REPORT#:[id number] REPORT STATUS: Signed DATE:01/16/22 TIME: 1222 PATIENT: SAÚL GILES UNIT #: [id number] ROOM/BED: [place] [address] : 43 AGE: 76 SEX: F ATTEND: Jesus Landry MD ADM AUTHOR: Meryl Rosa MD * ALL edits or amendments must be made on the el oLyferonic/computer document * Subjective Chief complaint: she feel well and is doing OT. no complaint Review of Systems Constitutional: Reports: fatigue, generalized weakness. Denies: fever, lethargy. Respiratory: Denies: productive cough (sputum), SOB, wheezing . Cardiovascular: Denies: chest pain, DOUGLASS (dyspnea on exer tion), edema, orthopnea, palpitations. GI: Denies: abdominal pain, nausea, vomiting. Neuro: Denies: dizziness, headache, syncope. Objective General VS/I O: Vital Signs: Date Time Temp Pulse Resp B/P B/P Pulse O2 O2 F low FiO2 Mean Ox Delivery Rate 01/16 1122 Nasal 2 cannula 01/16 0912 Nasal 2 cannula 01/16 0718 36.5 73 17 141/70 93.6 92 01/15 2312 36.6 70 18 111/67 81.8 96 01/15 2125 99 CPAP 01/15 1834 36.7 73 18 142/66 91.2 100 01/15 1518 95 Nasal 3 cannula 01/15 1517 36.6 75 18 128/66 87.0 97 Room air 01/15 1354 Nasal 2 cannula 01/15 1300 78 18 130/63 98 24 hour I O ending at 0700: 01/16 0700 01/15 1900 Intake Total 120 625 Output Total 900 Balance 120 -275 Intake, Oral 120 625 Number 1 Bowel Movements Number 0 0 Incontinent Voids Number Voids 7 6 Output, Urine 900 Patient 80.3 kg Weight Weight Standing scale Measurement Method PATIENT WEIGHT: Weight (lb): 256 Weight (oz): 11.65 Weight (kg): 116.450 Medications: Active Meds + DC'd Last 24 Hrs Amiodarone HCl (CORDARONE) 200 MG DAILY PO Acetazolamide (DIAMOX) 250 MG Q12HR PO Acetylcysteine (MUCOMYST FOR RT) 200 MG RTQ6H NE N PRN NEB Sodium Chloride (SODIUM CHLORIDE) 4 ML RTBID PRN PRN NEB Magnesium Chloride (MAG 64MG) 64 MG BID PO Furosemide (LASIX) 40 MG BID 9A 5P PO Lisinopril (ZESTRIL) 2.5 MG DAILY PO Ascorbic Acid (ASCORBIC ACID) 500 MG BID PO Bisacodyl (DULCOLAX) 10 MG DAILY PRN PRN RECTAL Potassium Chloride (POTASSIUM CHLORIDE 20MEQ TAB .ER) 40 MEQ DAILY PRN PRN PO Aspirin (ASPIRIN) 81 MG DAILY PO Clopidogrel Bisulfate (Plavix) 75 MG DAILY PO Cyanocobalamin (Vitamin B-12 500 mcg tab) 500 MC G DAILY PO Ferrous Sulfate (FERROUS SULFATE) 325 MG DAILY P O Insulin Glargine (Lantus/Semglee) 30 UNIT DAILY SUBQ Polyethylene Glycol (MIRALAX) 17 GM DAILY PO Sodium Chloride (SODIUM CHLORIDE) 10 ML BID IV Insulin Human Lispro (HUMALOG) 0 AC HS SUBQ Pantoprazole (PROTONIX) 40 MG DAILY@0600 PO Albuterol/Ipratropium (DUONEB) 3 ML RTQ6H NEB Glucagon (GLUCAGON) 1 MG ASDIR PRN IM Acetaminophen (TYLENOL) 650 MG Q4H PRN PRN PO Bisacodyl (DULCOLAX) 5 MG DAILY PRN PRN PO Dextrose/Water (DEXTROSE 10% IN WATER) 250 ML DIR PRN IV (CKD) Atorvastatin Calcium (LIPITOR) 40 MG 2100 PO Docusate Sodium (COLACE) 100 MG BID PO Insulin Glargine (Lantus/Semglee) 20 UNIT BEDTIM E SUBQ Melatonin (Melatonin) 3 MG BEDTIME PO Metoprolol Tartrate (LOPRESSOR) 25 MG Q12HR PO Ondansetron HCl (ZOFRAN ODT) 4 MG TID PRN PRN PO Sennosides (Senna Lax 8.6 MG TABLET) 17.2 MG BED TIME PO Physical Exam General appearance: alert, awake, oriented Head/Eyes: atraumatic, normal conjunctiva/sclera , normal eyelids/periorb. 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, 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, CNII-XII intact, normal speech, no motor deficits, no sensory deficits Skin: dry, intact Results Findings/Data: Laboratory Tests 01/16 01/16 01/16 01/16 01/15 1139 0604 0445 0445 1922 Chemistry Sodium (134 - 147 mEq/L) 141 Potassium (3.4 - 5.0 mEq/L) 3.9 Chloride (100 - 108 mEq/L) 101 Carbon Dioxide (21 - 33 mEq/l) 35 H Anion Gap (0 - 20) 9 BUN (7 - 18 mg/dL) 16 Creatinine (0.6 - 1.3 mg/dL) 0.9 Glomerular Filtr Rate (70 - 80) 60.6 L Glucose (70 - 110 mg/dL) 58 L POC Glucose (70 - 110 MG/DL) 117 H 98 132 H Calcium (8.0 - 10.5 mg/dL) 9.5 Ionized Calcium Gigi (1.09 - 1.30 1.16 MMOL/L) B-Natriuretic Peptide (0 - 100 PG/ML) 258.0 H 01/15 1533 Chemistry POC Glucose (70 - 110 MG/DL) 159 H Diagnosis, Assessment Plan Consultants: cardiology, cardiovascular surgery, hospitalist, nephrology Free Text DxA P Notes Free text DxA P notes: general weakness CAD - post CABG CHF HTN DM HLD afib RONA morbid obesity CAD -- cardiology consult CV surgeon consult CABG --post procedure ASA/lipitor Echocardiogram showed EF 55 to 59% edema --lasix /zaroxolyn -- monitor renal function weakness --PT/OT as rehab afib -- rate control -- xarelto/amiodarone /metoprolol HTN-- metoprolol/norvasc DM-- on lantus -- sliding scale HLD-- on lipitor RONA--cpap as nigth DVTP -- xarelto 01/09-- she feel tire after PT -- complaint of sob at night --bipap at night -- continue lasix -- replace K 01/10 Continue bowel regimen, adjust as needed i f no results. Replace K. 01/11 +BM. Replace K+, discussed with RN to give PRN K on - she complaint of tire - not sleep well last night -- continue bipap at night -- continue PT/OT 01/13 -- she sit on the chair . 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 less sob -- continue PT/OT 01/16- she is doing well with PT/OT Electronically Signed by Meryl Rosa MD on 2 at 1352 RPT #:[id number] END OF REPORT 2022-01-16 10:56:00-00:00 [facility] ([facility]) Rehab Progress Note REPORT#:[id number] REPORT STATUS: Signed DATE:01/16/22 TIME: 1056 PATIENT: SAÚL GILES UNIT #: [id number] ROOM/BED: [place] [address] : 43 AGE: 76 SEX: F ATTEND: Shaun Landry MD ADM AUTHOR: Jesus Landry MD * ALL edits or amendments must be made on the [employer] document * Subjective Chief complaint: Rehab follow-up Sitting up in chair in gym Patient feels better, less short of breath Using CPAP at night Patient on 2 L, sats 96 % NAD, eating 50-80% BLE edema improved + BM Denies GOLD/N/V/D/CP 14 systems reviewed and neg. except that above. Objective General VS: Vital Signs: Date Time Temp Pulse Resp B/P B/P Pulse O2 O2 F low FiO2 Mean Ox Delivery Rate 01/16 0912 Nasal 2 cannula 01/16 0718 97.7 73 17 141/70 93.6 92 01/15 2312 97.9 70 18 111/67 81.8 96 01/15 2125 99 CPAP 01/15 1834 98.1 73 18 142/66 91.2 100 01/15 1518 95 Nasal 3 cannula 01/15 1517 97.9 75 18 128/66 87.0 97 Room air 01/15 1354 Nasal 2 cannula 01/15 1300 78 18 130/63 98 PATIENT WEIGHT: Weight (lb): 177 Weight (oz): 0.5 Weight (kg): 80.300 Medications: Active Meds + DC'd Last 24 Hrs Amiodarone HCl (CORDARONE) 200 MG DAILY PO Acetazolamide (DIAMOX) 250 MG Q12HR PO Acetylcysteine (MUCOMYST FOR RT) 200 MG RTQ6H NE N PRN NEB Sodium Chloride (SODIUM CHLORIDE) 4 ML RTBID PRN PRN NEB Magnesium Chloride (MAG 64MG) 64 MG BID PO Furosemide (LASIX) 40 MG BID 9A 5P PO Lisinopril (ZESTRIL) 2.5 MG DAILY PO Ascorbic Acid (ASCORBIC ACID) 500 MG BID PO Bisacodyl (DULCOLAX) 10 MG DAILY PRN PRN RECTAL Potassium Chloride (POTASSIUM CHLORIDE 20MEQ TAB .ER) 40 MEQ DAILY PRN PRN PO Aspirin (ASPIRIN) 81 MG DAILY PO Clopidogrel Bisulfate (Plavix) 75 MG DAILY PO Cyanocobalamin (Vitamin B-12 500 mcg tab) 500 MC G DAILY PO Ferrous Sulfate (FERROUS SULFATE) 325 MG DAILY P O Insulin Glargine (Lantus/Semglee) 30 UNIT DAILY SUBQ Polyethylene Glycol (MIRALAX) 17 GM DAILY PO Sodium Chloride (SODIUM CHLORIDE) 10 ML BID IV Insulin Human Lispro (HUMALOG) 0 AC HS SUBQ Pantoprazole (PROTONIX) 40 MG DAILY@0600 PO Albuterol/Ipratropium (DUONEB) 3 ML RTQ6H NEB Glucagon (GLUCAGON) 1 MG ASDIR PRN IM Acetaminophen (TYLENOL) 650 MG Q4H PRN PRN PO Bisacodyl (DULCOLAX) 5 MG DAILY PRN PRN PO Dextrose/Water (DEXTROSE 10% IN WATER) 250 ML DIR PRN IV (CKD) Atorvastatin Calcium (LIPITOR) 40 MG 2100 PO Docusate Sodium (COLACE) 100 MG BID PO Insulin Glargine (Lantus/Semglee) 20 UNIT BEDTIM E SUBQ Melatonin (Melatonin) 3 MG BEDTIME PO Metoprolol Tartrate (LOPRESSOR) 25 MG Q12HR PO Ondansetron HCl (ZOFRAN ODT) 4 MG TID PRN PRN PO Sennosides (Senna Lax 8.6 MG TABLET) 17.2 MG BED TIME PO Physical Exam General appearance: alert, awake, no acute distr ess Psych: alert, normal affect, oriented x 3 HEENT: anicteric, mucosal membranes moist, pupil s reactive to light, sclera clear Neck: non-tender, supple, no JVD Cardiovascular: regular rate rhythm, S1/S2, no m urmur Respiratory: diminished breath sounds, on oxygen , clear bilaterally Abdomen: obese, bowel sounds present, non-disten ded, soft, non-tender Skin: dry, normal temperature, no rash, INCISION S: CDI, sutures x 2. 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 Results Findings/Data: Laboratory Tests: 01/16 01/16 01/16 01/15 0604 0445 0445 1922 Chemistry Sodium (134 - 147 mEq/L) 141 Potassium (3.4 - 5.0 mEq/L) 3.9 Chloride (100 - 108 mEq/L) 101 Carbon Dioxide (21 - 33 mEq/l) 35 H Anion Gap (0 - 20) 9 BUN (7 - 18 mg/dL) 16 Creatinine (0.6 - 1.3 mg/dL) 0.9 Glomerular Filtr Rate (70 - 80) 60.6 L Glucose (70 - 110 mg/dL) 58 L POC Glucose (70 - 110 MG/DL) 98 132 H Calcium (8.0 - 10.5 mg/dL) 9.5 Ionized Calcium Gigi (1.09 - 1.30 MMOL/L) 1.16 B-Natriuretic Peptide (0 - 100 PG/ML) 258.0 H 01/15 01/15 1533 1103 Chemistry POC Glucose (70 - 110 MG/DL) 159 H 154 H Radiology data: Recent Impressions: RADIOLOGY - XR CHEST 1 V 01/14 0906 Report Impression - Status: SIGNED Entered: 01/14/2022 1041 IMPRESSION: Minimal vascular congestion with subsegmental at electasis in the right midlung zone and opacity at the left lung base. Impression By: Nancy Stahl Diagnosis, Assessment Plan Free Text A P: Assessment: Critical illness myopathy Constrictive pericarditis Severe mitral regurgitation CAD 12/19: Status post CABG x1 (ROBERTS to LAD), ILAp, p ericardectomy 12/19: S/p MVR 01/06: Echo-EF 55-59%, mild to moderately dilate d right ventricle, LA and RA dilatation, normally functioning MV bioprosthesi s Chronic AF, s/p PPM/ablation-rate controlled-pac ed Volume overload-BLE edema History of lymphedema Generalized weakness Deconditioning Acute blood loss anemia Hypertension Morbid obesity HLD Crohn's disease Smoker Hypoxic respiratory failure Hypokalemia/hypomagnesemia secondary to diuretic s MARCELLO resolved Significant impaired ADLs, mobility, gait, marian ce and endurance Plan: -Comprehensive inpatient rehabilitation with physical, occupational and speech therapy 3 hours a day for 5 to 6 days per week-2 06/19 rehabilitation physician supervision-05/10 rehabilitat ion nursing care-Case management for safe discharge planning-Rehab MD to monitor comorbidities and f unctional progress. -Decubitus prevention-protective hydrating lotio n-turn every 2 hours-offload -Bowel program-MiraLAX and Senokot -Nutrition, monitor the michael ent's p.o. intake, check albumin 3.5 and prealbumin, dietary consult, protein supplements. -Strict fall and safety precaution -DVT prophylaxis-SCDs/antiembolism stockings -GI prophylaxis-Protonix -Glycemic control-continue insulin-blood sugars good-as per medicine -TAF-hqyeidnl-vkhutzrlsc following -Respiratory insufficiency-wean O2-postop pulmon shruthi protocol, encourage I-S, deep cough and breathing exercises, slowly impro ving -CAD s/p CABG, MVR, and ILAA-on DAPT post-op car e per CTS -Acute/chr AF s/p PPM/ablation. Rate controlled, paced rhythm-had ILAA during bypass, no need for AC-as per cardiology -Volume kkilkcsk-madgsixt-sa diuretics, strict I 's and O's Daily -HTN. BP stable-on metoprolol -HLD-On statins. -Crohn's disease. Per IM. -Early mobilization-OOB to chair -Work on bed mobility, transfer training , ADLs, pre-gait and gait exercises as tolerable. -Increase endurance and strength -Pain management -Consultants-cardiology, CVS, medicine, nephrolo gy -Labs reviewed-WBC normal, hemoglobin im proved 9.8 improved, platelets normal, potassium 3.5, creatinine 1.0, magnesium 1.77, BNP 232, 180 -replete potassium and magnesium as needed 01/09: SOB-chest x-ray-impro laury aeration bilaterally. Residual interstitial and perihilar opacities. Subsegmental atelectasis. R esidual small volume pleural effusions. -Continue CPAP at night -Encourage I-S and ambulation -BLE edema-ANA PAULA hose and elevation, exercise, diu retics -Diuresis as per cardiology -Anemia-continue ferrous sulfate, B12, vitamin C monitor H H -Monitor telemetry -Nausea-Zofran -Continue current medications -Sternal incision intact and healing. Co ntinue sternal precautions for 6 weeks -Monitor complains of being tired and sleepy -Therapeutic rest break given in between due to fair activity tolerance and patient reported Omaira RPE 4 (1-10) somewhat Hard SOB during activity. -Patient breathing better and working with thera pist -Check labs. Magnesium 1.83-labs pending -Advance therapies as tolerated Progress: GAIT TRAINING 80,72,50' CONT. TO PRAC MIMA PURSED LIP BREATHING AND PACING TO ASSIST WITH ENREGY CONSERVATION. IN PM PT WAS SEEN FOR 30MIN. INTRODUCE BARIATIR IC ROLLATOR TO PATIENT,EDUCATE AND DEMONSTRATE USE OF BRAKE S WELL SITTING AND STANDING.EDUCATE PT ON SAFETY W/ ROLLATER,SAFETY W/FALL PREVENTION,FALL RECCOVERY. PM R Please see team note. Plan and goals discussed with the patient. I agree with the teams finding ELOS: [01/21] HC-zfoc-ujzup with daughter-HH DME-RW, wheelchair TT 33 min>50% with discussing with patient about SOB improved, progress with therapies, rehab plan of care, goals, needs, and medical issues, examination. MAR and EMR reviewed. All Questions answered. Orders: Procedure Date/time Status OXYGEN PER HOUR 01/16 0529 Complete NEB TREATMENT SUBSQ 01/16 310 Active NEB TREATMENT SUBSQ 01/15 2130 Active Consultants: cardiology, cardiovascular surgery, hospitalist, nephrology Plan discussed with: patient, nurse, interdisc c are team Rehab attestation: Face to face exam completed. Treatment plan disc ussed with patient. Meets continued stay criteria. Agree with interdiscipl inary treatment plan. at 1102 RPT #:[id number] END OF REPORT 2022-01-16 10:20:00-00:00 [facility] Cardiology Progress Note REPORT#:[id number] REPORT STATUS: Signed DATE:01/16/22 TIME: 1020 PATIENT: SAÚL GILES UNIT #: [id number] ROOM/BED: [place] [address] : 43 AGE: 76 SEX: F ATTEND: Shaun Landry MD ADM AUTHOR: Aruna Fortune MD * ALL edits or amendments must be made on the el [employer]/computer document * Subjective Free Text Subj Notes Free Text Subj Notes: doing ok, said had a sob the night before. Objective General VS/I O: 24 hour I O ending at 0700: 01/16 0700 01/15 1900 Intake Total 120 625 Output Total 900 Balance 120 -275 Intake, Oral 120 625 Number 1 Bowel Movements Number 0 0 Incontinent Voids Number Voids 7 6 Output, Urine 900 Patient 80.3 kg Weight Weight Standing scale Measurement Method Vital Signs: Date Time Temp Pulse Resp B/P B/P Pulse O2 O2 F low FiO2 Mean Ox Delivery Rate 01/16 0912 Nasal 2 cannula 01/16 0718 97.7 73 17 141/70 93.6 92 01/15 2312 97.9 70 18 111/67 81.8 96 01/15 2125 99 CPAP 01/15 1834 98.1 73 18 142/66 91.2 100 01/15 1518 95 Nasal 3 cannula 01/15 1517 97.9 75 18 128/66 87.0 97 Room air 01/15 1354 Nasal 2 cannula 01/15 1300 78 18 130/63 98 PATIENT WEIGHT: Weight (lb): 177 Weight (oz): 0.5 Weight (kg): 80.300 Medications: Active Meds + DC'd Last 24 Hrs Amiodarone HCl (CORDARONE) 200 MG DAILY PO Acetazolamide (DIAMOX) 250 MG Q12HR PO Acetylcysteine (MUCOMYST FOR RT) 200 MG RTQ6H NE N PRN NEB Sodium Chloride (SODIUM CHLORIDE) 4 ML RTBID PRN PRN NEB Magnesium Chloride (MAG 64MG) 64 MG BID PO Furosemide (LASIX) 40 MG BID 9A 5P PO Lisinopril (ZESTRIL) 2.5 MG DAILY PO Ascorbic Acid (ASCORBIC ACID) 500 MG BID PO Bisacodyl (DULCOLAX) 10 MG DAILY PRN PRN RECTAL Potassium Chloride (POTASSIUM CHLORIDE 20MEQ TAB .ER) 40 MEQ DAILY PRN PRN PO Aspirin (ASPIRIN) 81 MG DAILY PO Clopidogrel Bisulfate (Plavix) 75 MG DAILY PO Cyanocobalamin (Vitamin B-12 500 mcg tab) 500 MC G DAILY PO Ferrous Sulfate (FERROUS SULFATE) 325 MG DAILY P O Insulin Glargine (Lantus/Semglee) 30 UNIT DAILY SUBQ Polyethylene Glycol (MIRALAX) 17 GM DAILY PO Sodium Chloride (SODIUM CHLORIDE) 10 ML BID IV Insulin Human Lispro (HUMALOG) 0 AC HS SUBQ Pantoprazole (PROTONIX) 40 MG DAILY@0600 PO Albuterol/Ipratropium (DUONEB) 3 ML RTQ6H NEB Glucagon (GLUCAGON) 1 MG ASDIR PRN IM Acetaminophen (TYLENOL) 650 MG Q4H PRN PRN PO Bisacodyl (DULCOLAX) 5 MG DAILY PRN PRN PO Dextrose/Water (DEXTROSE 10% IN WATER) 250 ML DIR PRN IV (CKD) Atorvastatin Calcium (LIPITOR) 40 MG 2100 PO Docusate Sodium (COLACE) 100 MG BID PO Insulin Glargine (Lantus/Semglee) 20 UNIT BEDTIM E SUBQ Melatonin (Melatonin) 3 MG BEDTIME PO Metoprolol Tartrate (LOPRESSOR) 25 MG Q12HR PO Ondansetron HCl (ZOFRAN ODT) 4 MG TID PRN PRN PO Sennosides (Senna Lax 8.6 MG TABLET) 17.2 MG BED TIME PO Physical Exam General appearance: alert, awake, oriented Head/Eyes: PERRLA Neck: no JVD Cardiovascular: CV assessment: regular rate and rhythm Respiratory: decreased breath sounds, no distres s Abdomen: soft, non-tender, normal bowel sounds, no distention Genitourinary: no flank pain, no urinary cathete r Upper extremity: UE assessment: no edema Lower extremity: LE assessment: edema (1 + pitting edema) Musculoskeletal: normal inspection 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, 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, normal speech Skin: poor skin turgor Psychiatry: normal affect, normal mood Results Findings/Data: Laboratory Tests 01/16 01/16 01/15 01/15 01/15 0604 0445 1922 1533 1103 Chemistry Sodium (134 - 147 mEq/L) 141 Potassium (3.4 - 5.0 mEq/L) 3.9 Chloride (100 - 108 mEq/L) 101 Carbon Dioxide (21 - 33 mEq/l) 35 H Anion Gap (0 - 20) 9 BUN (7 - 18 mg/dL) 16 Creatinine (0.6 - 1.3 mg/dL) 0.9 Glomerular Filtr Rate (70 - 80) 60.6 L Glucose (70 - 110 mg/dL) 58 L POC Glucose (70 - 110 MG/DL) 98 132 H 159 H 154 H Calcium (8.0 - 10.5 mg/dL) 9.5 Ionized Calcium Gigi (1.09 - 1.30 MMOL/L) 1.16 Diagnosis, Assessment Plan Problem List/A P: 1. CAD (coronary artery disease) 2. Severe mitral regurgitation 3. Chronic a-fib 4. S/P CABG x 1 5. S/P MVR (mitral valve replacement) Free Text DxA P Notes Free Text DxA P Notes: Ms Giles is a 76 y/o female with PMHx of CAD, HL D, T2DM, RONA (CPAP at home), smoker, Crohn's disease, AF s/p ablation s/p PPM, and chronic lymphedema. She is recovering from CABG and MVR. She is transferred to [facility] for inpatient rehabilitation. Cardiolgy is consulted f or continuity of cardiac-related care. 1. CAD s/p CABG, MVR, and ILAA. On Plavix, aspirin, beta-delma, statin 2. Chronic AF s/p PPM/ablation. had ILAA during bypass no need for AC keep K >4 and Mag above 2 decrease amiodarone to 200 mg daily 3. Chronic Diastolic CHF on PO Lasix 40 mg BID and diamox, dosing per kamran al. 4. Hypertension - normotensive BP range: 114-147/66-82 (82.1-103.3) mmHg continue metoprolol tartrate 25 mg BID low dose lisinopril added by nephrology 5. Hyperlipidemia Continue statins. 6. MARCELLO - resolved per Nephrology Electronically Signed by Aruna Fortune MD on at 1043 RPT #:[id number] END OF REPORT 2022-01-15 12:48:00-00:00 [facility] Nephrology Progress Note REPORT#:[id number] REPORT STATUS: Signed DATE:01/15/22 TIME: 1248 PATIENT: SAÚL GILES UNIT #: [id number] ROOM/BED: [place] [address] : 43 AGE: 76 SEX: F ATTEND: Shaun Landry MD ADM AUTHOR: Suki Fuchs MD * ALL edits or amendments must be made on the el oLyferonic/computer document * Subjective Chief complaint: CAD, S/P CABG HPI: This is a 76-year-old female who has past medica l history of hypertension, diabetes, coronary artery disease, atrial fibril lation who presented with worsening shortness of breath and on further wor k-up was 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 She was with normal kidney function prior to surgery and afte r her surgery she began to develop oliguria. Her procedure was done without any complications but after her surgery she did require pressor support for hypotension and she was intubated for respiratory acidosis and hypoxia a nd she was treated with vancomycin for infection treatment. She recovered kidney function and has been on diuretics for hypervolemia which has also imp roved significantly. 01/13 She was seen in rehab today and was doin g well, nursing staff reporting eating well. 01/15 Feeling fine, SOB better. Objective General VS/I O: Vital Signs: Date Time Temp Pulse Resp B/P B/P Pulse O2 O2 F low FiO2 Mean Ox Delivery Rate 01/16 0912 Nasal 2 cannula 01/16 0718 36.5 73 17 141/70 93.6 92 01/15 2312 36.6 70 18 111/67 81.8 96 01/15 2125 99 CPAP 01/15 1834 36.7 73 18 142/66 91.2 100 01/15 1518 95 Nasal 3 cannula 01/15 1517 36.6 75 18 128/66 87.0 97 Room air 01/15 1354 Nasal 2 cannula 01/15 1300 78 18 130/63 98 24 hour I O ending at 0700: 01/16 0700 01/15 1900 Intake Total 120 625 Output Total 900 Balance 120 -275 Intake, Oral 120 625 Number 1 Bowel Movements Number 0 0 Incontinent Voids Number Voids 7 6 Output, Urine 900 Patient 80.3 kg Weight Weight Standing scale Measurement Method PATIENT WEIGHT: Weight (lb): 177 Weight (oz): 0.5 Weight (kg): 80.300 Physical Exam General appearance: alert, awake, oriented Head/eyes: atraumatic, EOMI ENT: moist mucous membranes, normal nose Neck: no JVD, no lymphadenopathy Cardiovascular: normal heart sounds, regular rat e and rhythm Respiratory: aerating well, clear to auscultatio n Abdomen: non-tender, soft Genitourinary: no bladder distention, no flank p ain Extremities: pitting edema, no gangrene, no swel ling Diagnosis, Assessment Plan Free Text A P: This is a 76-year-old female known to have hyper tension, diabetes, atrial fibrillation, s/p permanent pacemaker and histor y of ablation presenting with shortness of breath and found to have multivesse l coronary artery disease therefore she had CABG on December 19 after which she has developed oliguria. Nephrology is following for: 1. Acute kidney injury: Most likely it i s prerenal (cardiorenal), she has been hypotensive postoperatively with require ment for pressor support and inotropic support. Resolved with stable hemodynamics 2. Hypervolemia:Improved, on low dose lasix. 3. Hypokalemia: Plan to replace nd monitor close ly. 4. Metabolic alkalosis secondary to diur etics. Plan to monitoe and give diamox if worsens. 01/09 1. Acute kidney injury: Most likely it i s prerenal (cardiorenal), she has been hypotensive postoperatively with require ment for pressor support and inotropic support. Resolved with stable hemodynamics 2. Hypervolemia:Improved, on low dose lasix. 3. Hypokalemia: Plan to replace and monitor clos faustina. 4. Metabolic alkalosis secondary to diuretics. P juan to monitor and continue diamox. 01/10 1. Acute kidney injury: Most likely it i s prerenal (cardiorenal), she has been hypotensive postoperatively with require ment for pressor support and inotropic support. Resolved with stable hemodynamics 2. Hypervolemia:Improved, on low dose la six.Dose increased to 40 Q12H today as she was looking volume overloaded. 3. Hypokalemia: Plan to replace and monitor clos faustina. 4. Metabolic alkalosis secondary to diuretics. P juan to monitor and continue diamox. 01/12 1. Acute kidney injury: Most likely it i s prerenal (cardiorenal), she has been hypotensive postoperatively with require ment for pressor support and inotropic support. Resolved with stable hemodynamics. 2. Hypervolemia:Improved, on low dose lasix.Dose increased to 40 Q12H as she was looking volume overloaded. 3. Hypokalemia: Plan to replace and monitor clos faustina. 4. Metabolic alkalosis secondary to diuretics. P juan to monitor and continue diamox. 01/13 1. Acute kidney injury: Resolved with stable hemodynamics. 2. Hypervolemia:Improved, on low dose lasix.Dose increased to 40 Q12H as she was looking volume overloaded. 3. Hypokalemia: Plan to replace and monitor clos faustina. 4. Metabolic alkalosis secondary to diuretics. Plan to monitor and continue diamox. 01/16 1. Acute kidney injury: Resolved with stable hemodynamics. 2. Hypervolemia:Improved, on low dose lasix.Dose increased to 40 Q12H as she was looking volume overloaded. No staying well. 3. Hypokalemia: Plan to repl cherelle and monitor closely.Lisinopril helping keep her potassium better. 4. Metabolic alkalosis secondary to diuretics. P juan to monitor and continue diamox. Consultants: cardiology, cardiovascular surgery, hospitalist, nephrology Electronically Signed by Suki Fuchs MD on at 1125 RPT #:[id number] END OF REPORT 2022-01-15 11:36:00-00:00 [facility] Hospitalist Progress Note REPORT#:[id number] REPORT STATUS: Signed DATE:01/15/22 TIME: 1136 PATIENT: SAÚL GILES UNIT #: [id number] ROOM/BED: [place] [address] : 43 AGE: 76 SEX: F ATTEND: Jesus Landry MD ADM AUTHOR: Meryl Rosa MD * ALL edits or amendments must be made on the [employer]/computer document * Subjective Chief complaint: she walk in the hallway with PT. no cp and sob Review of Systems Constitutional: Reports: generalized weakness. Denies: fatigue, fever, lethargy. Respiratory: Reports: DOUGLASS (dyspnea on exertion), SOB. Denies: pneumonia, productive cough ( sputum), wheezing. Cardiovascular: Reports: DOUGLASS (dyspnea on exertion). Denies: ches t pain, edema, orthopnea, palpitations. GI: Denies: abdominal pain, nausea, vomiting. Neuro: Denies: dizziness. Objective General VS/I O: Vital Signs: Date Time Temp Pulse Resp B/P B/P Pulse O2 O2 F low FiO2 Mean Ox Delivery Rate 01/15 0645 36.4 70 18 128/75 92.7 99 Nasal cannula 01/15 0300 36.5 70 17 137/55 82.7 94 Nasal cannula 01/15 0230 80 100 01/15 0230 100 Nasal 4 36 cannula 01/14 2232 36.5 74 18 114/69 84.2 95 Nasal cannula 01/14 2109 100 Nasal 4 36 cannula 01/14 1901 36.7 69 17 126/64 84.5 100 Nasal cannula 01/14 1900 Nasal 3 cannula 01/14 1520 36.6 91 18 117/73 87.9 93 Room air 01/14 1316 Nasal 2 cannula 24 hour I O ending at 0700: 01/15 0700 01/14 1900 Intake Total 120 640 Output Total 200 Balance -80 640 Intake, Oral 120 640 Number 1 Bowel Movements Number 0 Incontinent Voids Number Voids 2 Output, Urine 200 Patient 118.5 kg Weight Weight Bed scale Measurement Method PATIENT WEIGHT: Weight (lb): 261 Weight (oz): 3.96 Weight (kg): 118.500 Medications: Active Meds + DC'd Last 24 Hrs Amiodarone HCl (CORDARONE) 200 MG DAILY PO Acetazolamide (DIAMOX) 250 MG Q12HR PO Acetylcysteine (MUCOMYST FOR RT) 200 MG RTQ6H P RN PRN NEB Sodium Chloride (SODIUM CHLORIDE) 4 ML RTBID PRN PRN NEB Magnesium Chloride (MAG 64MG) 64 MG BID PO Furosemide (LASIX) 40 MG BID 9A 5P PO Lisinopril (ZESTRIL) 2.5 MG DAILY PO Ascorbic Acid (ASCORBIC ACID) 500 MG BID PO Bisacodyl (DULCOLAX) 10 MG DAILY PRN PRN RECTAL Potassium Chloride (POTASSIUM CHLORIDE 20MEQ TAB .ER) 40 MEQ DAILY PRN PRN PO Aspirin (ASPIRIN) 81 MG DAILY PO Clopidogrel Bisulfate (Plavix) 75 MG DAILY PO Cyanocobalamin (Vitamin B-12 500 mcg tab) 500 MC G DAILY PO Ferrous Sulfate (FERROUS SULFATE) 325 MG DAILY P O Insulin Glargine (Lantus/Semglee) 30 UNIT DAILY SUBQ Polyethylene Glycol (MIRALAX) 17 GM DAILY PO Sodium Chloride (SODIUM CHLORIDE) 10 ML BID IV Insulin Human Lispro (HUMALOG) 0 AC HS SUBQ Pantoprazole (PROTONIX) 40 MG DAILY@0600 PO Acetylcysteine (MUCOMYST FOR RT) 200 MG RTQ6H NE B (DC) Albuterol/Ipratropium (DUONEB) 3 ML RTQ6H NEB Glucagon (GLUCAGON) 1 MG ASDIR PRN IM Acetaminophen (TYLENOL) 650 MG Q4H PRN PRN PO Bisacodyl (DULCOLAX) 5 MG DAILY PRN PRN PO Dextrose/Water (DEXTROSE 10% IN WATER) 250 ML DIR PRN IV (CKD) Sodium Chloride (SODIUM CHLORIDE) 4 ML RTBID NEB (DC) Amiodarone HCl (CORDARONE) 200 MG Q12HR PO (DC) Atorvastatin Calcium (LIPITOR) 40 MG 2100 PO Docusate Sodium (COLACE) 100 MG BID PO Insulin Glargine (Lantus/Semglee) 20 UNIT BEDTIM E SUBQ Melatonin (Melatonin) 3 MG BEDTIME PO Metoprolol Tartrate (LOPRESSOR) 25 MG Q12HR PO Ondansetron HCl (ZOFRAN ODT) 4 MG TID PRN PRN PO Sennosides (Senna Lax 8.6 MG TABLET) 17.2 MG BED TIME PO Physical Exam General appearance: alert, awake, oriented, no a cute distress Head/Eyes: atraumatic, normal conjunctiva/sclera , normal eyelids/periorb. Neck: full range of motion, non-tender Cardiovascular: normal heart sounds, regular rat e rhythm Respiratory: dyspneic, on oxygen Abdomen: non-tender, normal bowel sounds, soft, no distention Extremities: edema, moves all 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, 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, CNII-XII intact, normal speech, no motor deficits, no sensory deficits Skin: dry, intact Results Findings/Data: Laboratory Tests 01/15 01/15 01/15 01/14 01/14 1103 0547 0455 1925 1523 Chemistry POC Glucose (70 - 110 MG/DL) 154 H 113 H 57 L 1 86 H 183 H Diagnosis, Assessment Plan Consultants: cardiology, cardiovascular surgery, hospitalist, nephrology Free Text DxA P Notes Free text DxA P notes: general weakness CAD - post CABG CHF HTN DM HLD afib RONA morbid obesity CAD -- cardiology consult CV surgeon consult CABG --post procedure ASA/lipitor Echocardiogram showed EF 55 to 59% edema --lasix /zaroxolyn -- monitor renal function weakness --PT/OT as rehab afib -- rate control -- xarelto/amiodarone /metoprolol HTN-- metoprolol/norvasc DM-- on lantus -- sliding scale HLD-- on lipitor RONA--cpap as nigth DVTP -- xarelto 01/09-- she feel tire after PT -- complaint of sob at night --bipap at night -- continue lasix -- replace K 01/10 Continue bowel regimen, adjust as needed i f no results. Replace K. 01/11 +BM. Replace K+, discussed with RN to give PRN K on MAY. 01/12- she complaint of tire - not sleep well last night -- continue bipap at night -- continue PT/OT 01/13 -- she sit on the chair . 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 less sob -- continue PT/OT Electronically Signed by Meryl Rosa MD on 2 at 1712 RPT #:[id number] END OF REPORT 2022-01-15 11:19:00-00:00 [facility] Rehab Team Conference REPORT#:[id number] REPORT STATUS: Signed DATE:01/15/22 TIME: 1119 PATIENT: SAÚL GILES UNIT #: [id number] ROOM/BED: [place] [address] : 43 AGE: 76 SEX: F ATTEND: Shaun Landry MD ADM AUTHOR: Jesus Landry MD * ALL edits or amendments must be made on the el ectronic/computer document * Rehabilitation Team Conference Weekly Team Conference Team conf information: Date of conference: 01/15/22 Conference type: Interim Conference scribe: Luda Correa REYNALDO INTERDISCIPLINARY TEAM MEETING PARTICIPANTS: TITLE NAME MD Jesus Landry MD RN Allie Toledo, RN PT Moshe Benton, PT OT Gabriele Delgado OT CM/TIFFANY Leone, LANDRY Arroyo, REYNALDO [facility] Luda Correa, REYNALDO Staff (8) NO ATTENDEE Staff (9) NO ATTENDEE OTHER NAME CREDENTIALS 1 STEFANO PERRY DIETITIAN 2 FUNCTIONAL CHANGE: TYPE ADMISSION TOTAL INTERIM TOTAL CHANGE Self care 19 28 9 Transfer 23 25 2 Mobility 11 22 11 Wheelchair distance: 150 ft Mobility description: BOWEL AND BLADDER STATUS: Bowel continence admission rating: Bladder continence admission rating: Always cont inent Bowel and bladder team conference update: CONTIN ENT X 2. LBM 10-30 INTERDISCIPLINARY TEAM UPDATES: DALILA team conference update: A/O X 4, ON 3 LITERS OXYGEN NC, BIPAP AT NIGHT WEARING ON AND OFF, CONTINENT X 2, PT VOIDING FR EQUENTLY AT NIGHT CAUSING HER DIFFICULTY TO SLEEP, NO REPORT OF PAIN O R DISCOMFORT WITH VOIDING, PT IS ON PO LASIX BID, MIN ASSIST WITH TRANFERES GÓMEZ RNAL PRECAUTIONS, ACHS(267,287,140,71) PITTING +2 EDEMA IN BILATERAL LEGS, GENERALIZED SWELLING. MINOR PAIN TO CHEST INCISION WITH COUGHING, MIDLINE INCISION ASHISH, ABD. PUNTURE SITES WITH SUTURES, EXCORIATION TO GROIN AREA. HGB:8.7, HCT:28.4, K: 3.3. VITAL SIGNS WNL. PT team conference update: P ROGRESS-GOOD PRIME MOBILITY WALKING 60' AT A TIME SO FAR WORKING PURSED LIP BREAT ANTHONY AND PACING TO ASSIST W/ENREGY CONSERVATION. DME -BARIATRIC RW HH OT team conference update: P T PROGRESSING WELL IN THERAPY. PT LIMITED BY STERNAL PRECAUTIONS, LIMITED ROM IN BUES, DECREASED ENDURANCE, STANDING BALANCE, AND SOB UPN EXERTION. WILL RECOMMEND HHOT. DME: [facility] team conference update: CM or SW team conference upd ate: PT LIVES AT HOME WITH DAUGHTER. PLAN FOR HER TO DISCHARGE TO HOME IN [place] WITH HOME HEAL TH Other discipline update 1: PO INTAKE: 50-80% OF A DIABETIC DIET WITH GULCERNA TID Other discipline update 2: Other discipline update 3: REHAB DC GOALS: Patient's identified discharge goal: PT: Pt ABLE TO WALK Eating discharge goal: Independent (6) Shower/bathe self discharge goal: Independent (6) Upper body dressing discharge goal: Independent (6) Lower body dressing discharge goal: Independent (6) Chair/bed to chair transfer discharge goal: Ind ependent (6) Transfer on/off toilet or commode discharge goa l: Independent (6) Walking 50 feet with two turns discharge goal: Independent (6) Walking 150 feet discharge goal: Independent (6 ) Four steps discharge goal: Partial/moderate ass t (3) Twelve steps discharge goal: Not applicable [place] 150 feet discharge goal: Supervise/diana ch asst (4) Goal 1 - Bowel function: PT WILL MAINTAIN NORMAL BOWEL FUNCTION IN REHAB STAY Goal 2 - Bladder function: PT WILL MAINTAIN NORM AL BLADDER FUNCITON IN REHAB STAY Nursing goal 3: PT WILL MAINTAIN SKIN INTEGRITY Nursing goal 4: PT WILL SKY IN FREE OF FALLS AND INJURIES THROUGHOUT REHAB STAY Nursing goal 5: DISCHARGE PLANNING: Barriers to discharge: DEFICITS W ADLS , IMPAIRE D ENDURANCE, STERNAL PREACVUTIONS Strategies for D/C barriers: ADL TRAINING, ENDUR ANCE TRAINING, COMPENSATORY STRATEGIES Estimated length of stay in days: 14 Anticipated discharge date: 01/21/22 Discharge date adjustment comment: Identified financial and/or community resource n eeds: Family/Caregiver training da ys: PT AND FAMILY WILL BE EDUCATED ON THE USE OF THE GAIT BELT TO LOWER THE PT TO THE FLOOR IN THE EV ENT OF LOSS OF BALANCE TO PREVENT FALL OR INJURY. FAMILY TRAINING SCHEDULE D ON 01/19/22 [place] day (DATE): 01/20/22 Expected discharge destination: Home Anticipated services upon discharge: Occupationa l therapy, Physical therapy, Home health, Nursing Anticipated discharge equipment: RW, WC-20" Impairment group: neurologic conditions NOTE Document ONLY ONE Impairment Group Neurologic conditions: neuromuscular disorders Etiologic diagnosis: Critical illness myopathy Review of comorbidities: CAD, MITRAL VALVE REPLACEMENT 12/23, CORONARY ARTERY BYPASS, Pericardiectomy., OBESITY, RONA, HTN, HLD, DIABETES, CROHN'S DISEASE, CHRONIC A FIB, PACEMAKER, ANEMIA, HYPOXIC RESPIRATORY FAILURE, on BiPap MD Review/Recommendations Attestation: This interdisciplinary team conference was led terrance ozuna and I concur with all decisions made during the team conference and re visions to the individualized overall plan of care. IRF cont stay criteria SEE NOTE at 1120 [facility] #:[id number] END OF REPORT 2022-01-15 06:32:00-00:00 [facility] ([facility]) Rehab Progress Note REPORT#:[id number] REPORT STATUS: Signed DATE:01/15/22 TIME: 631 PATIENT: SAÚL GILES UNIT #: [id number] ROOM/BED: [place] [address] : 43 AGE: 76 SEX: F ATTEND: Shaun Landry MD ADM AUTHOR: Herberth Pantoja * ALL edits or amendments must be made on the [employer]/computer document * Herberth Pantoja 01/15/22 0632: Subjective Chief complaint: Rehab follow-up Sitting up in chair States feels okay Using CPAP at night Patient on 3-4 L, sats 100% NAD, eating 50-80% Reports BLE edema + BM Denies GOLD/N/V/D/CP 14 systems reviewed and neg. except that above. Objective General VS: Vital Signs: Date Time Temp Pulse Resp B/P B/P Pulse O2 O2 F low FiO2 Mean Ox Delivery Rate 01/15 0300 97.7 70 17 137/55 82.7 94 Nasal cannula 01/15 0230 80 100 01/15 0230 100 Nasal 4 36 cannula 01/14 2232 97.7 74 18 114/69 84.2 95 Nasal cannula 01/14 2109 100 Nasal 4 36 cannula 01/14 1901 98.1 69 17 126/64 84.5 100 Nasal cannula 01/14 1900 Nasal 3 cannula 01/14 1520 97.9 91 18 117/73 87.9 93 Room air 01/14 1316 Nasal 2 cannula 01/14 0901 93 Nasal 3 cannula PATIENT WEIGHT: Weight (lb): 261 Weight (oz): 3.96 Weight (kg): 118.500 Medications: Active Meds + DC'd Last 24 Hrs Amiodarone HCl (CORDARONE) 200 MG DAILY PO Acetazolamide (DIAMOX) 250 MG Q12HR PO Acetylcysteine (MUCOMYST FOR RT) 200 MG RTQ6H NE N PRN NEB Sodium Chloride (SODIUM CHLORIDE) 4 ML RTBID PRN PRN NEB Magnesium Chloride (MAG 64MG) 64 MG BID PO Furosemide (LASIX) 40 MG BID 9A 5P PO Lisinopril (ZESTRIL) 2.5 MG DAILY PO Ascorbic Acid (ASCORBIC ACID) 500 MG BID PO Bisacodyl (DULCOLAX) 10 MG DAILY PRN PRN RECTAL Potassium Chloride (POTASSIUM CHLORIDE 20MEQ TAB .ER) 40 MEQ DAILY PRN PRN PO Acetazolamide (DIAMOX) 250 MG DAILY PO (DC) Aspirin (ASPIRIN) 81 MG DAILY PO Clopidogrel Bisulfate (Plavix) 75 MG DAILY PO Cyanocobalamin (Vitamin B-12 500 mcg tab) 500 MC G DAILY PO Ferrous Sulfate (FERROUS SULFATE) 325 MG DAILY P O Insulin Glargine (Lantus/Semglee) 30 UNIT DAILY SUBQ Polyethylene Glycol (MIRALAX) 17 GM DAILY PO Sodium Chloride (SODIUM CHLORIDE) 10 ML BID IV Insulin Human Lispro (HUMALOG) 0 AC HS SUBQ Pantoprazole (PROTONIX) 40 MG DAILY@0600 PO Acetylcysteine (MUCOMYST FOR RT) 200 MG RTQ6H NE B (DC) Albuterol/Ipratropium (DUONEB) 3 ML RTQ6H NEB Glucagon (GLUCAGON) 1 MG ASDIR PRN IM Acetaminophen (TYLENOL) 650 MG Q4H PRN PRN PO Bisacodyl (DULCOLAX) 5 MG DAILY PRN PRN PO Dextrose/Water (DEXTROSE 10% IN WATER) 250 ML DIR PRN IV (CKD) Sodium Chloride (SODIUM CHLORIDE) 4 ML RTBID NEB (DC) Amiodarone HCl (CORDARONE) 200 MG Q12HR PO (DC) Atorvastatin Calcium (LIPITOR) 40 MG 2100 PO Docusate Sodium (COLACE) 100 MG BID PO Insulin Glargine (Lantus/Semglee) 20 UNIT BEDTIM E SUBQ Melatonin (Melatonin) 3 MG BEDTIME PO Metoprolol Tartrate (LOPRESSOR) 25 MG Q12HR PO Ondansetron HCl (ZOFRAN ODT) 4 MG TID PRN PRN PO Sennosides (Senna Lax 8.6 MG TABLET) 17.2 MG BED TIME PO Functional Progress Functional progress: O: PT WAS SEEN FOR 90MIN OF THERAPY BEGINNING W/ GAIT TRAINING 65',45',50' WORKING ON PURSED LIP BREATING TO ASSIST W/ENERGY CONSERVATION,PT ON 2L WITH ACTIVITIES IN THERAPY.LENGTHY REST STOPS IN BETWEEN WALKING,W C MOBILTY PT PROPEL INTO GYM SLOW MOVING DUE TO FATIGUE.THE R- EX IN SITTING BI LE IN ALL PLANES 10 REPS,2 SETS, DYNAMIC STANDING WORKING ON TABLE TOP ACTIVITIES CRITICAL THINK ING PROBLEM SOLVING 2.50 MIN,2.25 X2 MIN. ASSIST PT TWICE T O RESTROOM SLOW MOVING EXTRA TIME TO VOID SBA WITH STAND STEP TRANSFER USING GRAB BAR FOR BALANCE.LEFT PT IN RECLINER WITH CALL LIGHT WITHIN REACH.PT ALSO PRACTICED PICKING OBJECTS OFF FLOOR WITH STONE SETTER APPRENTICE INDEP. A: PT MAKING PROGRESS IS SELF LIMITING AT TIME REQUIRES EXTRA TIME INBETWEEN ACTIVITIES TO RECOVER FROM FATIGUE. MAX ENCOURAGEMENT. Physical Exam General appearance: alert, awake Psych: alert, normal affect, oriented x 3 HEENT: anicteric, mucosal membranes moist, pupil s reactive to light, sclera clear Neck: non-tender, supple, no JVD Cardiovascular: regular rate rhythm, S1/S2, no m urmur Respiratory: diminished breath sounds, on oxygen , clear bilaterally Abdomen: obese, bowel sounds present, non-disten ded, soft, non-tender Skin: dry, normal temperature, no rash, INCISION S: CDI, sutures x 2. 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 Results Findings/Data: Laboratory Tests 01/15 01/15 01/14 01/14 01/14 0547 0455 1925 1523 1059 Chemistry POC Glucose (70 - 110 MG/DL) 113 H 57 L 186 H 1 83 H 114 H 01/14 01/14 01/13 01/13 01/13 0504 0443 1935 1632 1052 Chemistry Sodium (134 - 147 mEq/L) 141 Potassium (3.4 - 5.0 mEq/L) 3.9 Chloride (100 - 108 mEq/L) 98 L Carbon Dioxide (21 - 33 mEq/l) 38 H Anion Gap (0 - 20) 9 BUN (7 - 18 mg/dL) 16 Creatinine (0.6 - 1.3 mg/dL) 1.0 Glomerular Filtr Rate (70 - 80) 53.6 L Glucose (70 - 110 mg/dL) 74 POC Glucose (70 - 110 MG/DL) 83 193 H 146 H 164 H Calcium (8.0 - 10.5 mg/dL) 9.2 Magnesium (1.80 - 2.40 mg/dL) 1.83 01/13 01/12 01/12 01/12 0446 1957 1544 1041 Chemistry POC Glucose (70 - 110 MG/DL) 143 H 159 H 233 H 164 H Recent Impressions: RADIOLOGY - XR CHEST 1 V 01/14 0906 Report Impression - Status: SIGNED Entered: 01/14/2022 1041 IMPRESSION: Minimal vascular congestion with subsegmental at electasis in the right midlung zone and opacity at the left lung base. Impression By: Nancy Stahl Diagnosis, Assessment Plan Free Text A P: Assessment: Critical illness myopathy Constrictive pericarditis Severe mitral regurgitation CAD 12/19: Status post CABG x1 (ROBERTS to LAD), ILAp, p ericardectomy 12/19: S/p MVR 01/06: Echo-EF 55-59%, mild to moderately dilate d right ventricle, LA and RA dilatation, normally functioning MV bioprosthesi s Chronic AF, s/p PPM/ablation-rate controlled-pac ed Volume overload-BLE edema History of lymphedema Generalized weakness Deconditioning Acute blood loss anemia Hypertension Morbid obesity HLD Crohn's disease Smoker Hypoxic respiratory failure Hypokalemia/hypomagnesemia secondary to diuretic s MARCELLO resolved Significant impaired ADLs, mobility, gait, marian ce and endurance Plan: -Comprehensive inpatient rehabilitation with physical, occupational and speech therapy 3 hours a day for 5 to 6 days per week-2 06/19 rehabilitation physician supervision-05/10 rehabilitat ion nursing care-Case management for safe discharge planning-Rehab MD to monitor comorbidities and f unctional progress. -Decubitus prevention-protective hydrating lotio n-turn every 2 hours-offload -Bowel program-MiraLAX and Senokot -Nutrition, monitor the michael ent's p.o. intake, check albumin 3.5 and prealbumin, dietary consult, protein supplements. -Strict fall and safety precaution -DVT prophylaxis-SCDs/antiembolism stockings -GI prophylaxis-Protonix -Glycemic control-continue insulin-blood sugars good-as per medicine -ELH-azykaljx-kvaokpjyjp following -Respiratory insufficiency-wean O2-postop pulmon shruthi protocol, encourage I-S, deep cough and breathing exercises, slowly impro ving -CAD s/p CABG, MVR, and ILAA-on DAPT post-op car e per CTS -Acute/chr AF s/p PPM/ablation. Rate controlled, paced rhythm-had ILAA during bypass, no need for AC-as per cardiology -Volume pvpmwqzt-oxhiyqyp-mg diuretics, strict I 's and O's Daily -HTN. BP stable-on metoprolol -HLD-On statins. -Crohn's disease. Per IM. -Early mobilization-OOB to chair -Work on bed mobility, transfer training , ADLs, pre-gait and gait exercises as tolerable. -Increase endurance and strength -Pain management -Consultants-cardiology, CVS, medicine, nephrolo gy -Labs reviewed-WBC normal, hemoglobin im proved 9.8 improved, platelets normal, potassium 3.5, creatinine 1.0, magnesium 1.77, BNP 232, 180 -replete potassium and magnesium as needed 01/09: SOB-chest x-ray-impro laury aeration bilaterally. Residual interstitial and perihilar opacities. Subsegmental atelectasis. R esidual small volume pleural effusions. -Continue CPAP at night -Encourage I-S and ambulation -BLE edema-ANA PAULA hose and elevation, exercise, diu retics -Diuresis as per cardiology -Anemia-continue ferrous sulfate, B12, vitamin C monitor H H -Monitor telemetry -Nausea-Zofran -Continue current medications -Sternal incision intact and healing. Co ntinue sternal precautions for 6 weeks -Monitor complains of being tired and sleepy -Therapeutic rest break given in between due to fair activity tolerance and patient reported Omaira RPE 4 (1-10) somewhat Hard SOB during activity. -Patient still with SOB and desaturates with exercise-we will have Dr. Fortune evaluate patient. -Check labs. Magnesium 1.83 -Advance therapies as tolerated PM R Please see team note. Plan and goals discussed with the patient. I agree with the teams finding ELOS: [01/21] VU-lfrb-qizap with daughter-HH versus outpatient cardiac rehabilitation DME-RW, wheelchair TT 33 min>50% with brina young with patient about discharge plan, SOB, therapies, rehab plan of care, goals, needs, and me dical issues, examination. MAR and EMR reviewed. All Questions answered. Rehab attestation: Face to face exam completed. Treatment plan disc ussed with patient. Meets continued stay criteria. Agree with interdiscipl inary treatment plan. Jesus Landry 01/15/22 1037: Attestations Physician Attestation Agree w/findings plan: Patient seen and examined. Agree with the bethanyin gs and plan as documented by ABRAN Todd. PM R Please see team note. Plan and goals discussed with the patient. I agree with the teams finding ELOS: [01/21] MX-ihiz-tqdgj with daughter-HH DME-RW, wheelchair at 1119 at 1717 RPT #:[id number] END OF REPORT 2022-01-14 14:37:00-00:00 [facility] Cardiology Progress Note REPORT#:[id number] REPORT STATUS: Signed DATE:01/14/22 TIME: 1437 PATIENT: SAÚL GILES UNIT #: [id number] ROOM/BED: [place] [address] : 43 AGE: 76 SEX: F ATTEND: Shaun Landry MD ADM AUTHOR: Isabella Clemens PHP MYSQL DEVELOPER * ALL edits or amendments must be made on the [employer]ens[employer]/computer document * Subjective Chief complaint: States breathing is better Objective General VS/I O: 24 hour I O ending at 0700: 01/14 0700 01/13 1900 Intake Total 240 140 Output Total 759 Balance -519 140 Intake, Oral 240 140 Number 0 Incontinent Voids Number Voids 8 Output, Urine 759 Patient 115.6 kg Weight Weight Bed scale Measurement Method Vital Signs: Date Time Temp Pulse Resp B/P B/P Pulse O2 O2 F low FiO2 Mean Ox Delivery Rate 01/14 1316 Nasal 2 cannula 01/14 0901 93 Nasal 3 cannula 01/14 0632 36.7 75 18 125/74 90.9 97 Nasal cannula 01/13 2338 36.8 69 17 114/66 82.1 96 Nasal cannula 01/13 2100 Nasal 3 cannula 01/13 1921 36.7 69 18 136/76 95.8 97 Nasal 3 cannula 01/13 1543 36.8 70 18 147/82 103.3 100 Nasal cannula 01/13 1524 98 Nasal 4 cannula PATIENT WEIGHT: Weight (lb): 254 Weight (oz): 13.67 Weight (kg): 115.600 Medications: Active Meds + DC'd Last 24 Hrs Acetazolamide (DIAMOX) 250 MG Q12HR PO Acetylcysteine (MUCOMYST FOR RT) 200 MG RTQ6H NE N PRN NEB Sodium Chloride (SODIUM CHLORIDE) 4 ML RTBID PRN PRN NEB Furosemide (LASIX 40 mg/4 mL INJECTION) 40 MG ON CE ONE IV (DC) Magnesium Chloride (MAG 64MG) 64 MG BID PO Furosemide (LASIX) 40 MG BID 9A 5P PO Lisinopril (ZESTRIL) 2.5 MG DAILY PO Ascorbic Acid (ASCORBIC ACID) 500 MG BID PO Bisacodyl (DULCOLAX) 10 MG DAILY PRN PRN RECTAL Potassium Chloride (POTASSIUM CHLORIDE 20MEQ TAB .ER) 40 MEQ DAILY PRN PRN PO Acetazolamide (DIAMOX) 250 MG DAILY PO (DC) Aspirin (ASPIRIN) 81 MG DAILY PO Clopidogrel Bisulfate (Plavix) 75 MG DAILY PO Cyanocobalamin (Vitamin B-12 500 mcg tab) 500 MC G DAILY PO Ferrous Sulfate (FERROUS SULFATE) 325 MG DAILY P O Insulin Glargine (Lantus/Semglee) 30 UNIT DAILY SUBQ Polyethylene Glycol (MIRALAX) 17 GM DAILY PO Sodium Chloride (SODIUM CHLORIDE) 10 ML BID IV Insulin Human Lispro (HUMALOG) 0 AC HS SUBQ Pantoprazole (PROTONIX) 40 MG DAILY@0600 PO Acetylcysteine (MUCOMYST FOR RT) 200 MG RTQ6H NE B (DC) Albuterol/Ipratropium (DUONEB) 3 ML RTQ6H NEB Glucagon (GLUCAGON) 1 MG ASDIR PRN IM Acetaminophen (TYLENOL) 650 MG Q4H PRN PRN PO Bisacodyl (DULCOLAX) 5 MG DAILY PRN PRN PO Dextrose/Water (DEXTROSE 10% IN WATER) 250 ML DIR PRN IV (CKD) Sodium Chloride (SODIUM CHLORIDE) 4 ML RTBID NEB (DC) Amiodarone HCl (CORDARONE) 200 MG Q12HR PO Atorvastatin Calcium (LIPITOR) 40 MG 2100 PO Docusate Sodium (COLACE) 100 MG BID PO Insulin Glargine (Lantus/Semglee) 20 UNIT BEDTIM E SUBQ Melatonin (Melatonin) 3 MG BEDTIME PO Metoprolol Tartrate (LOPRESSOR) 25 MG Q12HR PO Ondansetron HCl (ZOFRAN ODT) 4 MG TID PRN PRN PO Sennosides (Senna Lax 8.6 MG TABLET) 17.2 MG BED TIME PO Pacemaker: permanent Physical Exam General appearance: chronically ill appearing, f rail, obese Neck: no JVD Cardiovascular: CV assessment: regular rate and rhythm Respiratory: decreased breath sounds, no distres s Abdomen: soft, non-tender, normal bowel sounds, no distention Genitourinary: no flank pain, no urinary cathete r Upper extremity: UE assessment: no edema Lower extremity: LE assessment: edema (1 + pitting edema) Musculoskeletal: normal inspection 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, 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, normal speech Skin: poor skin turgor Psychiatry: normal affect, normal mood Results Findings/Data: Laboratory Tests 01/14 01/14 01/14 01/13 01/13 1059 0504 0443 1935 1632 Chemistry Sodium (134 - 147 mEq/L) 141 Potassium (3.4 - 5.0 mEq/L) 3.9 Chloride (100 - 108 mEq/L) 98 L Carbon Dioxide (21 - 33 mEq/l) 38 H Anion Gap (0 - 20) 9 BUN (7 - 18 mg/dL) 16 Creatinine (0.6 - 1.3 mg/dL) 1.0 Glomerular Filtr Rate (70 - 80) 53.6 L Glucose (70 - 110 mg/dL) 74 POC Glucose (70 - 110 MG/DL) 114 H 83 193 H 146 H Calcium (8.0 - 10.5 mg/dL) 9.2 Magnesium (1.80 - 2.40 mg/dL) 1.83 Laboratory Tests 01/14 0504 Chemistry Magnesium (1.80 - 2.40 mg/dL) 1.83 Radiology data: Recent Impressions: RADIOLOGY - XR CHEST 1 V 01/14 0906 Report Impression - Status: SIGNED Entered: 01/14/2022 1041 IMPRESSION: Minimal vascular congestion with subsegmental at electasis in the right midlung zone and opacity at the left lung base. Impression By: Nancy Stahl Results: labs reviewed, vital signs reviewed Diagnosis, Assessment Plan Problem List/A P: 1. CAD (coronary artery disease) 2. Severe mitral regurgitation 3. Chronic a-fib 4. S/P CABG x 1 5. S/P MVR (mitral valve replacement) Plan discussed with: patient Free Text DxA P Notes Free Text DxA P Notes: Ms Giles is a 76 y/o female with PMHx of CAD, HL D, T2DM, RONA (CPAP at home), smoker, Crohn's disease, AF s/p ablation s/p PPM, and chronic lymphedema. She is recovering from CABG and MVR. She is transferred to [facility] for inpatient rehabilitation. Cardiolgy is consulted f or continuity of cardiac-related care. 1. CAD s/p CABG, MVR, and ILAA. On Plavix, aspirin, beta-delma, statin 2. Chronic AF s/p PPM/ablation. had ILAA during bypass no need for AC keep K >4 and Mag above 2 decrease amiodarone to 200 mg daily 3. Chronic Diastolic CHF on PO Lasix 40 mg BID developing LE edema - received extra IV lasix 40 mg yesterday Bicarb 38 - on Diamox 250 mg BID per nephrology CXR - mild congestion and bilateral segmetal ate lectasis - encourage I.S 4. Hypertension - normotensive BP range: 114-147/66-82 (82.1-103.3) mmHg continue metoprolol tartrate 25 mg BID low dose lisinopril added by nephrology 5. Hyperlipidemia Continue statins. 6. MARCELLO - resolved per Nephrology at 1658 Electronically Signed by Aruna Fortune MD on at 1043 RPT #:[id number] END OF REPORT 2022-01-14 14:11:00-00:00 [facility] Cardiothoracic Surgery Prog REPORT#:[id number] REPORT STATUS: Signed DATE:01/14/22 TIME: 141 PATIENT: SAÚL GILES UNIT #: [id number] ROOM/BED: [place] [address] : 43 AGE: 76 SEX: F ATTEND: Shaun Landry MD ADM AUTHOR: Kena Macedo NP * ALL edits or amendments must be made on the [employer]/computer document * General Status post: 1. Mitral valve replacement (31 Magna valve). 2. Coronary artery bypass graft surgery x1 (ROBERTS to LAD). 3. Isolation of left atrial appendage. 4. Pericardiectomy. Subjective Chief complaint: Follow-up CABG and MVR, isolation of left atrial appendage and pericardiectomy Review of Systems Constitutional: Denies: fever, malaise. Allergy/Immun: Denies: allergic reaction. Respiratory: Denies: SOB. GI: Denies: abdominal pain, nausea, vomiting. Heme: Denies: bleeding. All systems rev neg: except as marked Objective General VS/I O Last Documented: Result Date Time O2 Delivery Nasal cannula 01/14 1316 O2 Flow Rate 2 01/14 1316 Pulse Ox 93 01/14 0901 B/P 125/74 01/14 0632 B/P Mean 90.9 01/14 0632 Temp 98.1 01/14 0632 Pulse 75 01/14 0632 Resp 18 01/14 0632 FiO2 40 01/12 2255 24 hour I O ending at 0700: 01/14 0700 01/13 1900 Intake Total 240 140 Output Total 759 Balance -519 140 Intake, Oral 240 140 Number 0 Incontinent Voids Number Voids 8 Output, Urine 759 Patient 255 lb Weight Weight Bed scale Measurement Method PATIENT WEIGHT: Weight (lb): 254 Weight (oz): 13.67 Weight (kg): 115.600 Physical Exam General appearance: alert, oriented HEENT: anicteric Neck: supple/no meningismus Cardiovascular: normal heart sounds, regular rat e rhythm Respiratory: aerating well, symmetric expansion, no distress Abdomen: soft, non-tender, no distention Extremities: moves all 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, 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, normal speech, n o motor deficits Psychiatry: normal affect, normal mood Current Medications Medications: Active Meds + DC'd Last 24 Hrs Acetazolamide (DIAMOX) 250 MG Q12HR PO Furosemide (LASIX 40 mg/4 mL INJECTION) 40 MG ON CE ONE IV (DC) Magnesium Chloride (MAG 64MG) 64 MG BID PO Furosemide (LASIX) 40 MG BID 9A 5P PO Lisinopril (ZESTRIL) 2.5 MG DAILY PO Ascorbic Acid (ASCORBIC ACID) 500 MG BID PO Bisacodyl (DULCOLAX) 10 MG DAILY PRN PRN RECTAL Potassium Chloride (POTASSIUM CHLORIDE 20MEQ TAB .ER) 40 MEQ DAILY PRN PRN PO Acetazolamide (DIAMOX) 250 MG DAILY PO (DC) Aspirin (ASPIRIN) 81 MG DAILY PO Clopidogrel Bisulfate (Plavix) 75 MG DAILY PO Cyanocobalamin (Vitamin B-12 500 mcg tab) 500 MC G DAILY PO Ferrous Sulfate (FERROUS SULFATE) 325 MG DAILY P O Insulin Glargine (Lantus/Semglee) 30 UNIT DAILY SUBQ Polyethylene Glycol (MIRALAX) 17 GM DAILY PO Sodium Chloride (SODIUM CHLORIDE) 10 ML BID IV Insulin Human Lispro (HUMALOG) 0 AC HS SUBQ Pantoprazole (PROTONIX) 40 MG DAILY@0600 PO Acetylcysteine (MUCOMYST FOR RT) 200 MG RTQ6H NE B Albuterol/Ipratropium (DUONEB) 3 ML RTQ6H NEB Glucagon (GLUCAGON) 1 MG ASDIR PRN IM Acetaminophen (TYLENOL) 650 MG Q4H PRN PRN PO Bisacodyl (DULCOLAX) 5 MG DAILY PRN PRN PO Dextrose/Water (DEXTROSE 10% IN WATER) 250 ML DIR PRN IV (CKD) Sodium Chloride (SODIUM CHLORIDE) 4 ML RTBID NEB Amiodarone HCl (CORDARONE) 200 MG Q12HR PO Atorvastatin Calcium (LIPITOR) 40 MG 2100 PO Docusate Sodium (COLACE) 100 MG BID PO Insulin Glargine (Lantus/Semglee) 20 UNIT BEDTIM E SUBQ Melatonin (Melatonin) 3 MG BEDTIME PO Metoprolol Tartrate (LOPRESSOR) 25 MG Q12HR PO Ondansetron HCl (ZOFRAN ODT) 4 MG TID PRN PRN PO Sennosides (Senna Lax 8.6 MG TABLET) 17.2 MG BED TIME PO Results Findings/Data: Laboratory Tests 01/14 01/14 01/14 01/13 01/13 1059 0504 0443 1935 1632 Chemistry Sodium (134 - 147 mEq/L) 141 Potassium (3.4 - 5.0 mEq/L) 3.9 Chloride (100 - 108 mEq/L) 98 L Carbon Dioxide (21 - 33 mEq/l) 38 H Anion Gap (0 - 20) 9 BUN (7 - 18 mg/dL) 16 Creatinine (0.6 - 1.3 mg/dL) 1.0 Glomerular Filtr Rate (70 - 80) 53.6 L Glucose (70 - 110 mg/dL) 74 POC Glucose (70 - 110 MG/DL) 114 H 83 193 H 14 6 H Calcium (8.0 - 10.5 mg/dL) 9.2 Magnesium (1.80 - 2.40 mg/dL) 1.83 Radiology data: Recent Impressions: RADIOLOGY - XR CHEST 1 V 01/14 0906 Report Impression - Status: SIGNED Entered: 01/14/2022 1041 IMPRESSION: Minimal vascular congestion with subsegmental at electasis in the right midlung zone and opacity at the left lung base. Impression By: [place] - Nancy Carr Diagnosis, Assessment Plan Hospital course to date: This very pleasant 76-year-old female, from [facility], with past medical history of macular d egeneration, obesity, obstructive sleep apnea (CPAP at home), former smoker, hyp ertension, hyperlipidemia, diabetes, Crohn's disease , chronic atrial fibrillatio n status post 3 ablations in the past (on Xarelto), pacemaker placement who had a recent admission t o the hospital with heart failure symptoms. She has be en admitted to the hospital today for elective heart cath. Coronary angiogram showed severe m ultivessel coronary artery disease not suitable for percutaneous intervention. s/p 1. Mitral valve replacement (31 Magna valve). 2. Coronary artery bypass graft surgery x1 (ROBERTS to LAD). 3. Isolation of left atrial appendage. 4. Pericardiectomy. 01/14 Patient seen in rehab She is alert and oriented, no respiratory distre ss on nasal cannula No respiratory distress on room air Sternal incision intact and healing. Continue st ernal precautions for 6 weeks Remove sutures at chest tube sites. Encourage I-S and ambulation Diuresis by nephrology. Replace potassium Continue rehab Consultants: cardiology, cardiovascular surgery, hospitalist, nephrology at 1413 at 0703 RPT #:[id number] END OF REPORT 2022-01-14 11:16:00-00:[address] [facility] ([facility]) Nephrology Progress Note REPORT#:[id number] REPORT STATUS: Signed DATE:01/14/22 TIME: 1116 PATIENT: SAÚL GILES UNIT #: [id number] ROOM/BED: [place] [address] : 43 AGE: 76 SEX: F ATTEND: Shaun Landry MD ADM AUTHOR: Suki Fuchs MD * ALL edits or amendments must be made on the [employer]/computer document * Subjective Chief complaint: CAD, S/P CABG HPI: This is a 76-year-old female who has past medica l history of hypertension, diabetes, coronary artery disease, atrial fibril lation who presented with worsening shortness of breath and on further wor k-up was 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 She was with normal kidney function prior to surgery and afte r her surgery she began to develop oliguria. Her procedure was done without any complications but after her surgery she did require pressor support for hypotension and she was intubated for respiratory acidosis and hypoxia a nd she was treated with vancomycin for infection treatment. She recovered kidney function and has been on diuretics for hypervolemia which has also imp roved significantly. 01/14 She was seen in rehab today and was doin g well, nursing staff reporting eating well. Objective General VS/I O: Vital Signs: Date Time Temp Pulse Resp B/P B/P Pulse O2 O2 F low FiO2 Mean Ox Delivery Rate 01/15 0645 36.4 70 18 128/75 92.7 99 Nasal cannula 01/15 0300 36.5 70 17 137/55 82.7 94 Nasal cannula 01/15 0230 80 100 01/15 0230 100 Nasal 4 36 cannula 01/14 2232 36.5 74 18 114/69 84.2 95 Nasal cannula 01/14 2109 100 Nasal 4 36 cannula 01/14 1901 36.7 69 17 126/64 84.5 100 Nasal cannula 01/14 1900 Nasal 3 cannula 01/14 1520 36.6 91 18 117/73 87.9 93 Room air 01/14 1316 Nasal 2 cannula 24 hour I O ending at 0700: 01/15 0700 01/14 1900 Intake Total 120 640 Output Total 200 Balance -80 640 Intake, Oral 120 640 Number 1 Bowel Movements Number 0 Incontinent Voids Number Voids 2 Output, Urine 200 Patient 118.5 kg Weight Weight Bed scale Measurement Method PATIENT WEIGHT: Weight (lb): 261 Weight (oz): 3.96 Weight (kg): 118.500 Physical Exam General appearance: alert, awake, oriented Head/eyes: atraumatic, EOMI ENT: moist mucous membranes, normal nose Neck: no JVD, no lymphadenopathy Cardiovascular: normal heart sounds, regular rat e and rhythm Respiratory: aerating well, clear to auscultatio n Abdomen: non-tender, soft Genitourinary: no bladder distention, no flank p ain Extremities: pitting edema, no gangrene, no swel ling Diagnosis, Assessment Plan Free Text A P: This is a 76-year-old female known to have hyper tension, diabetes, atrial fibrillation, s/p permanent pacemaker and histor y of ablation presenting with shortness of breath and found to have multivesse l coronary artery disease therefore she had CABG on December 19 after which she has developed oliguria. Nephrology is following for: 1. Acute kidney injury: Most likely it i s prerenal (cardiorenal), she has been hypotensive postoperatively with require ment for pressor support and inotropic support. Resolved with stable hemodynamics 2. Hypervolemia:Improved, on low dose lasix. 3. Hypokalemia: Plan to replace nd monitor close ly. 4. Metabolic alkalosis secondary to diur etics. Plan to monitoe and give diamox if worsens. 01/09 1. Acute kidney injury: Most likely it i s prerenal (cardiorenal), she has been hypotensive postoperatively with require ment for pressor support and inotropic support. Resolved with stable hemodynamics 2. Hypervolemia:Improved, on low dose lasix. 3. Hypokalemia: Plan to replace and monitor skip sely. 4. Metabolic alkalosis secondary to diuretics. P juan to monitor and continue diamox. 01/10 1. Acute kidney injury: Most likely it i s prerenal (cardiorenal), she has been hypotensive postoperatively with require ment for pressor support and inotropic support. Resolved with stable hemodynamics 2. Hypervolemia:Improved, on low dose la six.Dose increased to 40 Q12H today as she was looking volume overloaded. 3. Hypokalemia: Plan to replace and monitor clos faustina. 4. Metabolic alkalosis secondary to diuretics. P juan to monitor and continue diamox. 01/12 1. Acute kidney injury: Most likely it i s prerenal (cardiorenal), she has been hypotensive postoperatively with require ment for pressor support and inotropic support. Resolved with stable hemodynamics. 2. Hypervolemia:Improved, on low dose lasix.Dose increased to 40 Q12H as she was looking volume overloaded. 3. Hypokalemia: Plan to replace and monitor clos faustina. 4. Metabolic alkalosis secondary to diuretics. P juan to monitor and continue diamox. 01/13 1. Acute kidney injury: Resolved with stable hemodynamics. 2. Hypervolemia:Improved, on low dose lasix.Dose increased to 40 Q12H as she was looking volume overloaded. 3. Hypokalemia: Plan to replace and monitor clos faustina. 4. Metabolic alkalosis secondary to diuretics. P juan to monitor and continue diamox. 01/14 1. Acute kidney injury: Resolved with stable hemodynamics. 2. Hypervolemia:Improved, on low dose lasix.Dose increased to 40 Q12H as she was looking volume overloaded. 3. Hypokalemia: Plan to replace and monitor clos faustina.Lisinopril helping keep potassium normal. 4. Metabolic alkalosis secondary to diuretics. P juan to monitor and continue diamox. Consultants: cardiology, cardiovascular surgery, hospitalist, nephrology Electronically Signed by Suki Fuchs MD on at 1250 RPT #:[id number] END OF REPORT 2022-01-14 11:05:00-00:[address] [facility] ([facility]) Hospitalist Progress Note REPORT#:[id number] REPORT STATUS: Signed DATE:01/14/22 TIME: 1104 PATIENT: SAÚL GILES UNIT #: [id number] ROOM/BED: [place] [address] : 43 AGE: 76 SEX: F ATTEND: Shaun Landry MD ADM AUTHOR: Meryl Rosa MD * ALL edits or amendments must be made on the [employer] document * Subjective Chief complaint: she sit on the chair . she is tire Review of Systems Constitutional: Reports: generalized weakness. Denies: fatigue, fever, lethargy. Respiratory: Denies: productive cough (sputum), SOB, wheezing . Cardiovascular: Denies: chest pain, DOUGLASS (dyspnea on exertion), e ana, orthopnea. GI: Denies: abdominal pain. Neuro: Denies: dizziness. Objective General VS/I O: Vital Signs: Date Time Temp Pulse Resp B/P B/P Pulse O2 O2 F low FiO2 Mean Ox Delivery Rate 01/14 0901 93 Nasal 3 cannula 01/14 0632 36.7 75 18 125/74 90.9 97 Nasal cannula 01/13 2338 36.8 69 17 114/66 82.1 96 Nasal cannula 01/13 2100 Nasal 3 cannula 01/13 1921 36.7 69 18 136/76 95.8 97 Nasal 3 cannula 01/13 1543 36.8 70 18 147/82 103.3 100 Nasal cannula 01/13 1524 98 Nasal 4 cannula 01/13 1429 Nasal 4 cannula 24 hour I O ending at 0700: 01/14 0700 01/13 1900 Intake Total 240 140 Output Total 759 Balance -519 140 Intake, Oral 240 140 Number 0 Incontinent Voids Number Voids 8 Output, Urine 759 Patient 115.6 kg Weight Weight Bed scale Measurement Method PATIENT WEIGHT: Weight (lb): 254 Weight (oz): 13.67 Weight (kg): 115.600 Medications: Active Meds + DC'd Last 24 Hrs Furosemide (LASIX 40 mg/4 mL INJECTION) 40 MG ON CE ONE IV (DC) Magnesium Chloride (MAG 64MG) 64 MG BID PO Furosemide (LASIX) 40 MG BID 9A 5P PO Lisinopril (ZESTRIL) 2.5 MG DAILY PO Ascorbic Acid (ASCORBIC ACID) 500 MG BID PO Bisacodyl (DULCOLAX) 10 MG DAILY PRN PRN RECTAL Potassium Chloride (POTASSIUM CHLORIDE 20MEQ TAB .ER) 40 MEQ DAILY PRN PRN PO Acetazolamide (DIAMOX) 250 MG DAILY PO Aspirin (ASPIRIN) 81 MG DAILY PO Clopidogrel Bisulfate (Plavix) 75 MG DAILY PO Cyanocobalamin (Vitamin B-12 500 mcg tab) 500 MC G DAILY PO Ferrous Sulfate (FERROUS SULFATE) 325 MG DAILY P O Insulin Glargine (Lantus/Semglee) 30 UNIT DAILY SUBQ Polyethylene Glycol (MIRALAX) 17 GM DAILY PO Sodium Chloride (SODIUM CHLORIDE) 10 ML BID IV Insulin Human Lispro (HUMALOG) 0 AC HS SUBQ Pantoprazole (PROTONIX) 40 MG DAILY@0600 PO Acetylcysteine (MUCOMYST FOR RT) 200 MG RTQ6H NE B Albuterol/Ipratropium (DUONEB) 3 ML RTQ6H NEB Glucagon (GLUCAGON) 1 MG ASDIR PRN IM Acetaminophen (TYLENOL) 650 MG Q4H PRN PRN PO Bisacodyl (DULCOLAX) 5 MG DAILY PRN PRN PO Dextrose/Water (DEXTROSE 10% IN WATER) 250 ML DIR PRN IV (CKD) Sodium Chloride (SODIUM CHLORIDE) 4 ML RTBID NEB Amiodarone HCl (CORDARONE) 200 MG Q12HR PO Atorvastatin Calcium (LIPITOR) 40 MG 2100 PO Docusate Sodium (COLACE) 100 MG BID PO Insulin Glargine (Lantus/Semglee) 20 UNIT BEDTIM E SUBQ Melatonin (Melatonin) 3 MG BEDTIME PO Metoprolol Tartrate (LOPRESSOR) 25 MG Q12HR PO Ondansetron HCl (ZOFRAN ODT) 4 MG TID PRN PRN PO Sennosides (Senna Lax 8.6 MG TABLET) 17.2 MG BED TIME PO Physical Exam General appearance: alert, awake, oriented Head/Eyes: atraumatic, normal conjunctiva/sclera , normal eyelids/periorb. Neck: full range of motion, non-tender Cardiovascular: normal heart sounds, regular rat e rhythm Respiratory: dyspneic, on oxygen Abdomen: non-tender, normal bowel sounds, soft, no distention Extremities: edema, moves all 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, 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, CNII-XII intact, normal speech, no motor deficits, no sensory deficits Skin: dry, intact Diagnosis, Assessment Plan Consultants: cardiology, cardiovascular surgery, hospitalist, nephrology Free Text DxA P Notes Free text DxA P notes: general weakness CAD - post CABG CHF HTN DM HLD afib RONA morbid obesity CAD -- cardiology consult CV surgeon consult CABG --post procedure ASA/lipitor Echocardiogram showed EF 55 to 59% edema --lasix /zaroxolyn -- monitor renal function weakness --PT/OT as rehab afib -- rate control -- xarelto/amiodarone /metoprolol HTN-- metoprolol/norvasc DM-- on lantus -- sliding scale HLD-- on lipitor RONA--cpap as nigth DVTP -- xarelto 01/09-- she feel tire after PT -- complaint of sob at night --bipap at night -- continue lasix -- replace K 01/10 Continue bowel regimen, adjust as needed i f no results. Replace K. 01/11 +BM. Replace K+, discussed with RN to give PRN K on - she complaint of tire - not sleep well last night -- continue bipap at night -- continue PT/OT 01/13 -- she sit on the chair . no complaint -- continue PT/OT note is delay enter Electronically Signed by Meryl Rosa MD on 2 at 1107 RPT #:[id number] END OF REPORT 2022-01-14 11:03:00-00:00 [facility] Hospitalist Progress Note REPORT#:[id number] REPORT STATUS: Signed DATE:01/14/22 TIME: 1103 PATIENT: SAÚL GILES UNIT #: [id number] ROOM/BED: [place] [address] : 43 AGE: 76 SEX: F ATTEND: Shaun Landry MD ADM AUTHOR: Meryl Rosa MD * ALL edits or amendments must be made on the [employer]ens[employer]/computer document * Subjective Chief complaint: she walked 60 feets today as PT. no cp and sob Review of Systems Constitutional: Reports: generalized weakness. Denies: fatigue, fever, lethargy. Respiratory: Denies: productive cough (sputum), SOB, wheezing . Cardiovascular: Denies: chest pain, DOUGLASS (dyspnea on exer tion), edema, orthopnea, palpitations. GI: Denies: abdominal pain, nausea, vomiting. Neuro: Denies: dizziness. Objective General VS/I O: Vital Signs: Date Time Temp Pulse Resp B/P B/P Pulse O2 O2 F low FiO2 Mean Ox Delivery Rate 01/14 0901 93 Nasal 3 cannula 01/14 0632 36.7 75 18 125/74 90.9 97 Nasal cannula 01/13 2338 36.8 69 17 114/66 82.1 96 Nasal cannula 01/13 2100 Nasal 3 cannula 01/13 1921 36.7 69 18 136/76 95.8 97 Nasal 3 cannula 01/13 1543 36.8 70 18 147/82 103.3 100 Nasal cannula 01/13 1524 98 Nasal 4 cannula 01/13 1429 Nasal 4 cannula 24 hour I O ending at 0700: 01/14 0700 01/13 1900 Intake Total 240 140 Output Total 759 Balance -519 140 Intake, Oral 240 140 Number 0 Incontinent Voids Number Voids 8 Output, Urine 759 Patient 115.6 kg Weight Weight Bed scale Measurement Method PATIENT WEIGHT: Weight (lb): 254 Weight (oz): 13.67 Weight (kg): 115.600 Medications: Active Meds + DC'd Last 24 Hrs Furosemide (LASIX 40 mg/4 mL INJECTION) 40 MG ON CE ONE IV (DC) Magnesium Chloride (MAG 64MG) 64 MG BID PO Furosemide (LASIX) 40 MG BID 9A 5P PO Lisinopril (ZESTRIL) 2.5 MG DAILY PO Ascorbic Acid (ASCORBIC ACID) 500 MG BID PO Bisacodyl (DULCOLAX) 10 MG DAILY PRN PRN RECTAL Potassium Chloride (POTASSIUM CHLORIDE 20MEQ TAB .ER) 40 MEQ DAILY PRN PRN PO Acetazolamide (DIAMOX) 250 MG DAILY PO Aspirin (ASPIRIN) 81 MG DAILY PO Clopidogrel Bisulfate (Plavix) 75 MG DAILY PO Cyanocobalamin (Vitamin B-12 500 mcg tab) 500 MC G DAILY PO Ferrous Sulfate (FERROUS SULFATE) 325 MG DAILY P O Insulin Glargine (Lantus/Semglee) 30 UNIT DAILY SUBQ Polyethylene Glycol (MIRALAX) 17 GM DAILY PO Sodium Chloride (SODIUM CHLORIDE) 10 ML BID IV Insulin Human Lispro (HUMALOG) 0 AC HS SUBQ Pantoprazole (PROTONIX) 40 MG DAILY@0600 PO Acetylcysteine (MUCOMYST FOR RT) 200 MG RTQ6H NE B Albuterol/Ipratropium (DUONEB) 3 ML RTQ6H NEB Glucagon (GLUCAGON) 1 MG ASDIR PRN IM Acetaminophen (TYLENOL) 650 MG Q4H PRN PRN PO Bisacodyl (DULCOLAX) 5 MG DAILY PRN PRN PO Dextrose/Water (DEXTROSE 10% IN WATER) 250 ML DIR PRN IV (CKD) Sodium Chloride (SODIUM CHLORIDE) 4 ML RTBID NEB Amiodarone HCl (CORDARONE) 200 MG Q12HR PO Atorvastatin Calcium (LIPITOR) 40 MG 2100 PO Docusate Sodium (COLACE) 100 MG BID PO Insulin Glargine (Lantus/Semglee) 20 UNIT BEDTIM E SUBQ Melatonin (Melatonin) 3 MG BEDTIME PO Metoprolol Tartrate (LOPRESSOR) 25 MG Q12HR PO Ondansetron HCl (ZOFRAN ODT) 4 MG TID PRN PRN PO Sennosides (Senna Lax 8.6 MG TABLET) 17.2 MG BED TIME PO Physical Exam General appearance: alert, awake, oriented Head/Eyes: atraumatic, normal conjunctiva/sclera , normal eyelids/periorb. Neck: full range of motion, non-tender Cardiovascular: normal heart sounds, regular rat e rhythm Respiratory: dyspneic, on oxygen Abdomen: non-tender, normal bowel sounds, soft, no distention Extremities: edema, moves all 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, 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, CNII-XII intact, normal speech, no motor deficits, no sensory deficits Skin: dry, intact Results Findings/Data: Laboratory Tests 01/14 01/14 01/13 01/13 0504 0443 1935 1632 Chemistry Sodium (134 - 147 mEq/L) 141 Potassium (3.4 - 5.0 mEq/L) 3.9 Chloride (100 - 108 mEq/L) 98 L Carbon Dioxide (21 - 33 mEq/l) 38 H Anion Gap (0 - 20) 9 BUN (7 - 18 mg/dL) 16 Creatinine (0.6 - 1.3 mg/dL) 1.0 Glomerular Filtr Rate (70 - 80) 53.6 L Glucose (70 - 110 mg/dL) 74 POC Glucose (70 - 110 MG/DL) 83 193 H 146 H Calcium (8.0 - 10.5 mg/dL) 9.2 Magnesium (1.80 - 2.40 mg/dL) 1.83 Radiology data: Recent Impressions: RADIOLOGY - XR CHEST 1 V 01/14 0906 Report Impression - Status: SIGNED Entered: 01/14/2022 1041 IMPRESSION: Minimal vascular congestion with subsegmental at electasis in the right midlung zone and opacity at the left lung base. Impression By: Nancy Stahl Diagnosis, Assessment Plan Consultants: cardiology, cardiovascular surgery, hospitalist, nephrology Free Text DxA P Notes Free text DxA P notes: general weakness CAD - post CABG CHF HTN DM HLD afib RONA morbid obesity CAD -- cardiology consult CV surgeon consult CABG --post procedure ASA/lipitor Echocardiogram showed EF 55 to 59% edema --lasix /zaroxolyn -- monitor renal function weakness --PT/OT as rehab afib -- rate control -- xarelto/amiodarone /metoprolol HTN-- metoprolol/norvasc DM-- on lantus -- sliding scale HLD-- on lipitor RONA--cpap as nigth DVTP -- xarelto 01/09-- she feel tire after PT -- complaint of sob at night --bipap at night -- continue lasix -- replace K 01/10 Continue bowel regimen, adjust as needed i f no results. Replace K. 01/11 +BM. Replace K+, discussed with RN to give PRN K on MAY. 01/12- she complaint of tire - not sleep well last night -- continue bipap at night -- continue PT/OT 01/13 -- she sit on the chair . no complaint -- continue PT/OT 01/14 -- she get stronger -- continue current medication -- continue PT/OT Electronically Signed by Meryl Rosa MD on 2 at 1108 [facility] #:[id number] END OF REPORT 2022-01-14 05:59:00-00:00 [facility] Rehab Progress Note REPORT#:[id number] REPORT STATUS: Signed DATE:01/14/22 TIME: 05 PATIENT: SAÚL GILES UNIT #: [id number] ROOM/BED: [place] [address] : 43 AGE: 76 SEX: F ATTEND: Shaun Landry MD ADM AUTHOR: Herberth Pantoja * ALL edits or amendments must be made on the [employer]/computer document * Subjective Chief complaint: Rehab follow-up Sitting up in chair States feels okay Using CPAP at night Patient on 3-4 L, sats 100% NAD, eating 50-80% Reports BLE edema + BM Denies GOLD/N/V/D/CP 14 systems reviewed and neg. except that above. Objective General VS: Vital Signs: Date Time Temp Pulse Resp B/P B/P Pulse O2 O2 F low FiO2 Mean Ox Delivery Rate 01/13 2338 98.2 69 17 114/66 82.1 96 Nasal cannula 01/13 2100 Nasal 3 cannula 01/13 1921 98.1 69 18 136/76 95.8 97 Nasal 3 cannula 01/13 1543 98.2 70 18 147/82 103.3 100 Nasal cannula 01/13 1524 98 Nasal 4 cannula 01/13 1429 Nasal 4 cannula 01/13 0732 97.7 75 17 133/76 95.4 99 Nasal 4 cannula PATIENT WEIGHT: Weight (lb): 253 Weight (oz): 11.72 Weight (kg): 115.091 Medications: Active Meds + DC'd Last 24 Hrs Furosemide (LASIX 40 mg/4 mL INJECTION) 40 MG ON CE ONE IV (DC) Magnesium Chloride (MAG 64MG) 64 MG BID PO Furosemide (LASIX) 40 MG BID 9A 5P PO Lisinopril (ZESTRIL) 2.5 MG DAILY PO Ascorbic Acid (ASCORBIC ACID) 500 MG BID PO Bisacodyl (DULCOLAX) 10 MG DAILY PRN PRN RECTAL Potassium Chloride (POTASSIUM CHLORIDE 20MEQ TAB .ER) 40 MEQ DAILY PRN PRN PO Acetazolamide (DIAMOX) 250 MG DAILY PO Aspirin (ASPIRIN) 81 MG DAILY PO Clopidogrel Bisulfate (Plavix) 75 MG DAILY PO Cyanocobalamin (Vitamin B-12 500 mcg tab) 500 MC G DAILY PO Ferrous Sulfate (FERROUS SULFATE) 325 MG DAILY P O Insulin Glargine (Lantus/Semglee) 30 UNIT DAILY SUBQ Polyethylene Glycol (MIRALAX) 17 GM DAILY PO Sodium Chloride (SODIUM CHLORIDE) 10 ML BID IV Insulin Human Lispro (HUMALOG) 0 AC HS SUBQ Pantoprazole (PROTONIX) 40 MG DAILY@0600 PO Acetylcysteine (MUCOMYST FOR RT) 200 MG RTQ6H NE B Albuterol/Ipratropium (DUONEB) 3 ML RTQ6H NEB Glucagon (GLUCAGON) 1 MG ASDIR PRN IM Acetaminophen (TYLENOL) 650 MG Q4H PRN PRN PO Bisacodyl (DULCOLAX) 5 MG DAILY PRN PRN PO Dextrose/Water (DEXTROSE 10% IN WATER) 250 ML DIR PRN IV (CKD) Sodium Chloride (SODIUM CHLORIDE) 4 ML RTBID NEB Amiodarone HCl (CORDARONE) 200 MG Q12HR PO Atorvastatin Calcium (LIPITOR) 40 MG 2100 PO Docusate Sodium (COLACE) 100 MG BID PO Insulin Glargine (Lantus/Semglee) 20 UNIT BEDTIM E SUBQ Melatonin (Melatonin) 3 MG BEDTIME PO Metoprolol Tartrate (LOPRESSOR) 25 MG Q12HR PO Ondansetron HCl (ZOFRAN ODT) 4 MG TID PRN PRN PO Sennosides (Senna Lax 8.6 MG TABLET) 17.2 MG BED TIME PO Functional Progress Functional progress: Wheelchair Gait distance: 75 ft, 50 ft Gait device: Extra time for safety Gait belt Rolling walker Wheelchair distance: 150 ft Wheelchair device: Manual WC PT daily note comment: Patient was in the toile t, agreeable to therapy. Demonstrated the following: - Transfer from toilet<>W/C with SBA. - Gait training 75 ft, 50 ft using RW with SBA, occasional cues on pacing and facilitation of symmetrical stance. - W/C Mobility 150 ft using BLE for propulsion with SBA. - Seated AROME on BLE x 20 reps x 3 sets, AP. - Sit<>stand x 5 reps with SBA. Therapeutic rest break given in between due to fair activity tolerance and patient reported Omaira RPE 4 Somewhat Hard SOB during activity. - Standing balance activity and tolerated 1 min standing. Assisted patient back in room, trnasfer from W/ C> recliner, left with all needs within reach. A: Patient exhibited a positive response to marquez fox 's session as evidenced by improved transfer and gait. Patient is making good progress towards STG/ LTG. However, patient has not yet met goals. Patient will benefit from continued intervention with progression of exercise and training. P: Continued POC working towards STG/ LTG. Physical Exam General appearance: alert, awake Psych: alert, normal affect, oriented x 3 HEENT: anicteric, mucosal membranes moist, pupil s reactive to light, sclera clear Neck: non-tender, supple, no JVD Cardiovascular: regular rate rhythm, S1/S2, no m urmur Respiratory: diminished breath sounds, on oxygen , clear bilaterally Abdomen: obese, bowel sounds present, non-disten ded, soft, non-tender Skin: dry, normal temperature, no rash, INCISION S: CDI, sutures x 2. 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 Results Findings/Data: Laboratory Tests 01/14 01/14 01/13 01/13 01/13 0504 0443 1935 1632 1052 Chemistry Sodium (134 - 147 mEq/L) 141 Potassium (3.4 - 5.0 mEq/L) 3.9 Chloride (100 - 108 mEq/L) 98 L Carbon Dioxide (21 - 33 mEq/l) 38 H Anion Gap (0 - 20) 9 BUN (7 - 18 mg/dL) 16 Creatinine (0.6 - 1.3 mg/dL) 1.0 Glomerular Filtr Rate (70 - 80) 53.6 L Glucose (70 - 110 mg/dL) 74 POC Glucose (70 - 110 MG/DL) 83 193 H 146 H 16 4 H Calcium (8.0 - 10.5 mg/dL) 9.2 Magnesium (1.80 - 2.40 mg/dL) 1.83 01/136 7 1544 1041 0549 Chemistry POC Glucose (70 - 110 MG/DL) 143 H 159 H 233 H 164 H 95 01/12 01/12 01/12 01/11 01/11 0547 0415 0415 1914 1657 Chemistry Sodium (134 - 147 mEq/L) 139 Potassium (3.4 - 5.0 mEq/L) 3.5 Chloride (100 - 108 mEq/L) 96 L Carbon Dioxide (21 - 33 mEq/l) 35 H Anion Gap (0 - 20) 11 BUN (7 - 18 mg/dL) 13 Creatinine (0.6 - 1.3 mg/dL) 1.0 Glomerular Filtr Rate (70 - 80) 53.6 L Glucose (70 - 110 mg/dL) 73 POC Glucose (70 - 110 MG/DL) 100 267 H 286 H Calcium (8.0 - 10.5 mg/dL) 9.0 Magnesium (1.80 - 2.40 mg/dL) 1.77 L B-Natriuretic Peptide (0 - 100 PG/ML) 180.0 H Albumin (3.4 - 5.0 g/dL) 3.60 Prealbumin (16.0 - 40.0 mg/dL) 13.8 L 01/11 1114 Chemistry POC Glucose (70 - 110 MG/DL) 140 H Laboratory Tests 01/12 415 Hematology WBC (4.5 - 11.0 x10 3/uL) 6.0 RBC (3.54 - 5.02 x10 6/uL) 2.89 L Hgb (11.0 - 15.0 g/dL) 9.8 L Hct (33.0 - 45.0 %) 32.7 L MCV (81.0 - 99.0 fL) 113.1 H MCH (27.0 - 33.0 pg) 33.9 H MCHC (33.0 - 37.0 g/dL) 30.0 L RDW (11.5 - 14.5 %) 18.9 H Plt Count (150 - 400 x10 3/uL) 155 MPV (7.0 - 9.0 fL) 11.6 H Neut % (Auto) (56.0 - 77.0 %) 82.8 H Lymph % (Auto) (14.0 - 32.0 %) 5.5 L Barron % (Auto) (4.8 - 9.0 %) 8.5 Eos % (Auto) (0.3 - 3.7 %) 2.5 Baso % (Auto) (0.0 - 2.0 %) 0.5 Neut # (Auto) (2.0 - 7.6 x10 3/uL) 4.99 Lymph # (Auto) (1.0 - 3.8 x10 3/uL) 0.33 L Barron # (Auto) (0.1 - 0.8 x10 3/uL) 0.51 Eos # (Auto) (0.0 - 0.2 x10 3/uL) 0.15 Baso # (Auto) (0.0 - 0.2 x10 3/uL) 0.03 Abs Immat Gran (auto) (0.00 - 0.03 x10 3/uL) 0. 01 Add Manual Diff NO Immature Gran % (0.0 - 2.0 %) 0.2 Nucleated RBC % (0 - 0 %) 0.0 Nucleated RBCs # (Man) (0.0 - 0.1 x10 3/uL) 0.0 0 Poikilocytosis 1+ Anisocytosis 2+ Macrocytosis 1+ Schistocytes 1+ Diagnosis, Assessment Plan Free Text A P: Assessment: Critical illness myopathy Constrictive pericarditis Severe mitral regurgitation CAD 12/19: Status post CABG x1 (ROBERTS to LAD), ILAp, p ericardectomy 12/19: S/p MVR 01/06: Echo-EF 55-59%, mild to moderately dilate d right ventricle, LA and RA dilatation, normally functioning MV bioprosthesi s Chronic AF, s/p PPM/ablation-rate controlled-pac ed Volume overload-BLE edema History of lymphedema Generalized weakness Deconditioning Acute blood loss anemia Hypertension Morbid obesity HLD Crohn's disease Smoker Hypoxic respiratory failure Hypokalemia/hypomagnesemia secondary to diuretic s MARCELLO resolved Significant impaired ADLs, mobility, gait, marian ce and endurance Plan: -Comprehensive inpatient rehabilitation with physical, occupational and speech therapy 3 hours a day for 5 to 6 days per week-2 06/19 rehabilitation physician supervision-05/10 rehabilitat ion nursing care-Case management for safe discharge planning-Rehab MD to monitor comorbidities and f unctional progress. -Decubitus prevention-protective hydrating lotio n-turn every 2 hours-offload -Bowel program-MiraLAX and Senokot -Nutrition, monitor the michael ent's p.o. intake, check albumin 3.5 and prealbumin, dietary consult, protein supplements. -Strict fall and safety precaution -DVT prophylaxis-SCDs/antiembolism stockings -GI prophylaxis-Protonix -Glycemic control-continue insulin-blood sugars good-as per medicine -JTG-lcydohyg-pokbgfiedv following -Respiratory insufficiency-wean O2-postop pulmon shruthi protocol, encourage I-S, deep cough and breathing exercises, slowly impro ving -CAD s/p CABG, MVR, and ILAA-on DAPT post-op car e per CTS -Acute/chr AF s/p PPM/ablation. Rate controlled, paced rhythm-had ILAA during bypass, no need for AC-as per cardiology -Volume yhcycbcl-ldmzwjsn-dy diuretics, strict I 's and O's Daily -HTN. BP stable-on metoprolol -HLD-On statins. -Crohn's disease. Per IM. -Early mobilization-OOB to chair -Work on bed mobility, transfer training , ADLs, pre-gait and gait exercises as tolerable. -Increase endurance and strength -Pain management -Consultants-cardiology, CVS, medicine, nephrolo gy -Labs reviewed-WBC normal, hemoglobin im proved 9.8 improved, platelets normal, potassium 3.5, creatinine 1.0, magnesium 1.77, BNP 232, 180 -replete potassium and magnesium as needed 01/09: SOB-chest x-ray-impro laury aeration bilaterally. Residual interstitial and perihilar opacities. Subsegmental atelectasis. R esidual small volume pleural effusions. -Continue CPAP at night -Encourage I-S and ambulation -BLE edema-ANA PAULA hose and elevation, exercise, diu retics -Diuresis as per cardiology -Anemia-continue ferrous sulfate, B12, vitamin C monitor H H -Monitor telemetry -Nausea-Zofran -Continue current medications -Sternal incision intact and healing. Co ntinue sternal precautions for 6 weeks -Monitor complains of being tired and sleepy -Therapeutic rest break given in between due to fair activity tolerance and patient reported Omaira RPE 4 (1-10) somewhat Hard SOB during activity. -Patient still with SOB and desaturates with exercise-we will have Dr. Fortune evaluate patient. -Check labs. Magnesium 1.83 -Advance therapies as tolerated PM R Please see team note. Plan and goals discussed with the patient. I agree with the teams finding ELOS: [01/21] GK-uexv-afbhy with daughter-HH versus outpatient cardiac rehabilitation DME-RW, wheelchair TT 34 min>50% with discussin g with patient about discharge plan, SOB, therapies, rehab plan of care, goals, needs, and me dical issues, examination. MAR and EMR reviewed. All Questions answered. Rehab attestation: Face to face exam completed. Treatment plan disc ussed with patient. Meets continued stay criteria. Agree with interdiscipl inary treatment plan. at 1902 RPT #:[id number] END OF REPORT 2022-01-13 18:45:00-00:00 [facility] REPORT#:[id number] REPORT STATUS: Signed DATE:01/13/22 TIME: 1844 PATIENT: SAÚL GILES UNIT #: [id number] ROOM/BED: [place] [address] : 43 AGE: 76 SEX: F ATTEND: Shaun Landry MD ADM AUTHOR: Suki Fuchs MD * ALL edits or amendments must be made on the [employer]fer[employer]/computer document * Subjective Chief complaint: CAD, S/P CABG HPI: This is a 76-year-old female who has past medica l history of hypertension, diabetes, coronary artery disease, atrial fibril lation who presented with worsening shortness of breath and on further wor k-up was 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 She was with normal kidney function prior to surgery and afte r her surgery she began to develop oliguria. Her procedure was done without any complications but after her surgery she did require pressor support for hypotension and she was intubated for respiratory acidosis and hypoxia a nd she was treated with vancomycin for infection treatment. She recovered kidney function and has been on diuretics for hypervolemia which has also imp roved significantly. 01/13 She was seen in rehab today and was claribeln hannah well, nursing staff reporting eating well. Objective General VS/I O: Vital Signs: Date Time Temp Pulse Resp B/P B/P Pulse O2 O2 Flow FiO2 Mean Ox Delivery Rate 01/14 0632 36.7 75 18 125/74 90.9 97 Nasal cannula 01/13 2338 36.8 69 17 114/66 82.1 96 Nasal cannula 01/13 2100 Nasal 3 cannula 01/13 1921 36.7 69 18 136/76 95.8 97 Nasal 3 cannula 01/13 1543 36.8 70 18 147/82 103.3 100 Nasal cannula 01/13 1524 98 Nasal 4 cannula 01/13 1429 Nasal 4 cannula 24 hour I O ending at 0700: 01/14 0700 01/13 1900 Intake Total 240 140 Output Total 759 Balance -519 140 Intake, Oral 240 140 Number 0 Incontinent Voids Number Voids 8 Output, Urine 759 Patient 115.6 kg Weight Weight Bed scale Measurement Method PATIENT WEIGHT: Weight (lb): 254 Weight (oz): 13.67 Weight (kg): 115.600 Physical Exam General appearance: alert, awake, oriented Head/eyes: atraumatic, EOMI ENT: moist mucous membranes, normal nose Neck: no JVD, no lymphadenopathy Cardiovascular: normal heart sounds, regular rat e and rhythm Respiratory: aerating well, clear to auscultatio n Abdomen: non-tender, soft Genitourinary: no bladder distention, no flank p ain Extremities: pitting edema, no gangrene, no swel ling Diagnosis, Assessment Plan Free Text A P: This is a 76-year-old female known to have hyper tension, diabetes, atrial fibrillation, s/p permanent pacemaker and histor y of ablation presenting with shortness of breath and found to have multivesse l coronary artery disease therefore she had CABG on December 19 after which she has developed oliguria. Nephrology is following for: 1. Acute kidney injury: Most likely it i s prerenal (cardiorenal), she has been hypotensive postoperatively with require ment for pressor support and inotropic support. Resolved with stable hemodynamics 2. Hypervolemia:Improved, on low dose lasix. 3. Hypokalemia: Plan to replace nd monitor close ly. 4. Metabolic alkalosis secondary to diur etics. Plan to monitoe and give diamox if worsens. 01/09 1. Acute kidney injury: Most likely it i s prerenal (cardiorenal), she has been hypotensive postoperatively with require ment for pressor support and inotropic support. Resolved with stable hemodynamics 2. Hypervolemia:Improved, on low dose lasix. 3. Hypokalemia: Plan to replace and monitor clos faustina. 4. Metabolic alkalosis secondary to diuretics. P juan to monitor and continue diamox. 01/10 1. Acute kidney injury: Most likely it i s prerenal (cardiorenal), she has been hypotensive postoperatively with require ment for pressor support and inotropic support. Resolved with stable hemodynamics 2. Hypervolemia:Improved, on low dose la six.Dose increased to 40 Q12H today as she was looking volume overloaded. 3. Hypokalemia: Plan to replace and monitor clos faustina. 4. Metabolic alkalosis secondary to diuretics. P juan to monitor and continue diamox. 01/12 1. Acute kidney injury: Most likely it i s prerenal (cardiorenal), she has been hypotensive postoperatively with require ment for pressor support and inotropic support. Resolved with stable hemodynamics. 2. Hypervolemia:Improved, on low dose lasix.Dose increased to 40 Q12H as she was looking volume overloaded. 3. Hypokalemia: Plan to replace and monitor clos faustina. 4. Metabolic alkalosis secondary to diuretics. P juan to monitor and continue diamox. 01/13 1. Acute kidney injury: Resolved with stable hemodynamics. 2. Hypervolemia:Improved, on low dose lasix.Dose increased to 40 Q12H as she was looking volume overloaded. 3. Hypokalemia: Plan to replace and monitor clos faustina. 4. Metabolic alkalosis secondary to diuretics. P juan to monitor and continue diamox. Consultants: cardiology, cardiovascular surgery, hospitalist, nephrology Electronically Signed by Suki Fuchs MD on at 0812 RPT #:[id number] END OF REPORT 2022-01-13 14:03:00-00:00 [facility] Cardiology Progress Note REPORT#:[id number] REPORT STATUS: Signed DATE:01/13/22 TIME: 1403 PATIENT: SAÚL GILES UNIT #: [id number] ROOM/BED: [place] [address] : 43 AGE: 76 SEX: F ATTEND: Shaun Landry MD ADM AUTHOR: Isabella Clemens PHP MYSQL DEVELOPER * ALL edits or amendments must be made on the [employer]ens[employer]/computer document * Subjective Chief complaint: chronic LE edema chronic SOB Objective General VS/I O: 24 hour I O ending at 0700: 01/13 0700 01/12 1900 Intake Total 200 Output Total Balance 200 Intake, Oral 200 Number 0 Incontinent Voids Number Voids 7 Patient 115.091 kg Weight Weight Standing scale Measurement Method Vital Signs: Date Time Temp Pulse Resp B/P B/P Pulse O2 O2 F low FiO2 Mean Ox Delivery Rate 01/13 0732 36.5 75 17 133/76 95.4 99 Nasal 4 cannula 01/13 0315 95 Nasal 4 cannula 01/12 2308 36.5 82 20 119/72 0.0 96 01/12 2255 70 96 40 01/12 2032 95 Nasal 4 cannula 01/12 2000 Nasal 4 cannula 01/12 1913 36.7 76 19 133/78 96.0 93 Nasal 2 cannula 01/12 1545 36.7 69 18 119/70 86.3 95 Nasal cannula 01/12 1505 Nasal 4 cannula 01/12 1408 Nasal 4 cannula PATIENT WEIGHT: Weight (lb): 253 Weight (oz): 11.72 Weight (kg): 115.091 Medications: Active Meds + DC'd Last 24 Hrs Magnesium Chloride (MAG 64MG) 64 MG BID PO Furosemide (LASIX) 40 MG BID 9A 5P PO Lisinopril (ZESTRIL) 2.5 MG DAILY PO Ascorbic Acid (ASCORBIC ACID) 500 MG BID PO Bisacodyl (DULCOLAX) 10 MG DAILY PRN PRN RECTAL Potassium Chloride (POTASSIUM CHLORIDE 20MEQ TAB .ER) 40 MEQ DAILY PRN PRN PO Acetazolamide (DIAMOX) 250 MG DAILY PO Aspirin (ASPIRIN) 81 MG DAILY PO Clopidogrel Bisulfate (Plavix) 75 MG DAILY PO Cyanocobalamin (Vitamin B-12 500 mcg tab) 500 MC G DAILY PO Ferrous Sulfate (FERROUS SULFATE) 325 MG DAILY P O Insulin Glargine (Lantus/Semglee) 30 UNIT DAILY SUBQ Polyethylene Glycol (MIRALAX) 17 GM DAILY PO Sodium Chloride (SODIUM CHLORIDE) 10 ML BID IV Insulin Human Lispro (HUMALOG) 0 AC HS SUBQ Pantoprazole (PROTONIX) 40 MG DAILY@0600 PO Acetylcysteine (MUCOMYST FOR RT) 200 MG RTQ6H NE B Albuterol/Ipratropium (DUONEB) 3 ML RTQ6H NEB Glucagon (GLUCAGON) 1 MG ASDIR PRN IM Acetaminophen (TYLENOL) 650 MG Q4H PRN PRN PO Bisacodyl (DULCOLAX) 5 MG DAILY PRN PRN PO Dextrose/Water (DEXTROSE 10% IN WATER) 250 ML DIR PRN IV (CKD) Sodium Chloride (SODIUM CHLORIDE) 4 ML RTBID NEB Amiodarone HCl (CORDARONE) 200 MG Q12HR PO Atorvastatin Calcium (LIPITOR) 40 MG 2100 PO Docusate Sodium (COLACE) 100 MG BID PO Insulin Glargine (Lantus/Semglee) 20 UNIT BEDTIM E SUBQ Melatonin (Melatonin) 3 MG BEDTIME PO Metoprolol Tartrate (LOPRESSOR) 25 MG Q12HR PO Ondansetron HCl (ZOFRAN ODT) 4 MG TID PRN PRN PO Sennosides (Senna Lax 8.6 MG TABLET) 17.2 MG BED TIME PO Physical Exam General appearance: obese, a lert, awake, oriented, no acute distress, pleasant, conversational ENT: normal nose Neck: no JVD Cardiovascular: CV assessment: regular rate and rhythm Respiratory: decreased breath sounds, no distres s Abdomen: soft, non-tender, normal bowel sounds, no distention Genitourinary: no flank pain, no urinary cathete r Upper extremity: UE assessment: no edema Lower extremity: LE assessment: edema (1 + pitting edema) Musculoskeletal: normal inspection 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, 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, normal speech Skin: poor skin turgor Psychiatry: normal affect, normal mood Results Findings/Data: Laboratory Tests 01/13 01/13 01/12 01/12 1052 0446 1957 1544 Chemistry POC Glucose (70 - 110 MG/DL) 164 H 143 H 159 H 233 H Results: labs reviewed, vital signs reviewed, [facility] personally rev'd Diagnosis, Assessment Plan Problem List/A P: 1. CAD (coronary artery disease) 2. Severe mitral regurgitation 3. Chronic a-fib 4. S/P CABG x 1 5. S/P MVR (mitral valve replacement) Plan discussed with: patient Free Text DxA P Notes Free Text DxA P Notes: Ms Giles is a 76 y/o female with PMHx of CAD, HL D, T2DM, RONA (CPAP at home), smoker, Crohn's disease, AF s/p ablation s/p PPM, and chronic lymphedema. She is recovering from CABG and MVR. She is transferred to [facility] for inpatient rehabilitation. Cardiolgy is consulted f or continuity of cardiac-related care. 1. CAD s/p CABG, MVR, and ILAA. On Plavix, aspirin, beta-delma, statin 2. Chronic AF s/p PPM/ablation. had ILAA during bypass no need for AC keep K >4 and Mag above 2 taper amiodarone prior to discharge 3. Chronic Diastolic CHF on PO Lasix 40 mg BID developing LE edema - will give extra IV lasix 4 0 mg x1 check BMP, Mag, CXR in AM 4. Hypertension - normotensive today BP range: 119-147/72-82 mmHg continue metoprolol tartrate 25 mg BID low dose lisinopril added by nephrology 5. Hyperlipidemia Continue statins. 6. MARCELLO - resolved per Nephrology at 1734 Electronically Signed by Aruna Fortune MD on at 1043 RPT #:[id number] END OF REPORT 2022-01-13 08:04:00-00:00 [facility] RE[facility]#:[id number] REPORT STATUS: Signed DATE:01/13/22 TIME: 803 PATIENT: SAÚL GILES UNIT #: [id number] ROOM/BED: [facility] [place] : 43 AGE: 76 SEX: F ATTEND: Shaun Landry MD ADM AUTHOR: Jesus Landry MD * ALL edits or amendments must be made on the [employer]/computer document * Subjective Chief complaint: Rehab follow-up Reports Omaira RPE 4 (1-10) somewhat Hard SOB during activity with therapy today Using CPAP at night Patient on 3-4 L, sats 100% NAD, eating 50-80% Reports BLE edema Positive BM Denies GOLD/N/V/D/CP 14 systems reviewed and neg. except that above. Objective General VS: Vital Signs: Date Time Temp Pulse Resp B/P B/P Pulse O2 O2 Flow FiO2 Mean Ox Delivery Rate 01/13 0732 97.7 75 17 133/76 95.4 99 Nasal 4 cannula 01/13 0315 95 Nasal 4 cannula 01/12 2308 97.7 82 20 119/72 0.0 96 01/12 2255 70 96 40 01/12 2032 95 Nasal 4 cannula 01/12 2000 Nasal 4 cannula 01/12 1913 98.1 76 19 133/78 96.0 93 Nasal 2 cannula 01/12 1545 98.1 69 18 119/70 86.3 95 Nasal cannula 01/12 1505 Nasal 4 cannula 01/12 1408 Nasal 4 cannula 01/12 1003 99 Nasal 4 cannula PATIENT WEIGHT: Weight (lb): 253 Weight (oz): 11.72 Weight (kg): 115.091 Medications: Active Meds + DC'd Last 24 Hrs Magnesium Chloride (MAG 64MG) 64 MG BID PO Furosemide (LASIX) 40 MG BID 9A 5P PO Lisinopril (ZESTRIL) 2.5 MG DAILY PO Ascorbic Acid (ASCORBIC ACID) 500 MG BID PO Bisacodyl (DULCOLAX) 10 MG DAILY PRN PRN RECTAL Potassium Chloride (POTASSIUM CHLORIDE 20MEQ TAB .ER) 40 MEQ DAILY PRN PRN PO Acetazolamide (DIAMOX) 250 MG DAILY PO Aspirin (ASPIRIN) 81 MG DAILY PO Clopidogrel Bisulfate (Plavix) 75 MG DAILY PO Cyanocobalamin (Vitamin B-12 500 mcg tab) 500 MC G DAILY PO Ferrous Sulfate (FERROUS SULFATE) 325 MG DAILY P O Insulin Glargine (Lantus/Semglee) 30 UNIT DAILY SUBQ Polyethylene Glycol (MIRALAX) 17 GM DAILY PO Sodium Chloride (SODIUM CHLORIDE) 10 ML BID IV Insulin Human Lispro (HUMALOG) 0 AC HS SUBQ Pantoprazole (PROTONIX) 40 MG DAILY@0600 PO Acetylcysteine (MUCOMYST FOR RT) 200 MG RTQ6H NE B Albuterol/Ipratropium (DUONEB) 3 ML RTQ6H NEB Glucagon (GLUCAGON) 1 MG ASDIR PRN IM Acetaminophen (TYLENOL) 650 MG Q4H PRN PRN PO Bisacodyl (DULCOLAX) 5 MG DAILY PRN PRN PO Dextrose/Water (DEXTROSE 10% IN WATER) 250 ML DIR PRN IV (CKD) Sodium Chloride (SODIUM CHLORIDE) 4 ML RTBID NEB Amiodarone HCl (CORDARONE) 200 MG Q12HR PO Atorvastatin Calcium (LIPITOR) 40 MG 2100 PO Docusate Sodium (COLACE) 100 MG BID PO Insulin Glargine (Lantus/Semglee) 20 UNIT BEDTIM E SUBQ Melatonin (Melatonin) 3 MG BEDTIME PO Metoprolol Tartrate (LOPRESSOR) 25 MG Q12HR PO Ondansetron HCl (ZOFRAN ODT) 4 MG TID PRN PRN PO Sennosides (Senna Lax 8.6 MG TABLET) 17.2 MG BED TIME PO Physical Exam General appearance: alert, awake, no acute distr ess Psych: alert, normal affect, oriented x 3 HEENT: anicteric, mucosal membranes moist, pupil s reactive to light, sclera clear Neck: non-tender, supple, no JVD Cardiovascular: regular rate rhythm, S1/S2, no m urmur Respiratory: diminished breath sounds, on oxygen , clear bilaterally Abdomen: obese, bowel sounds present, non-disten ded, soft, non-tender Skin: dry, normal temperature, no rash, INCISION S: CDI, sutures x 2. 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 Results Findings/Data: Laboratory Tests: 01/13 01/12 01/12 01/12 0446 1957 1544 1041 Chemistry POC Glucose (70 - 110 MG/DL) 143 H 159 H 233 H 164 H Laboratory Tests 01/10 01/10 01/10 01/11 01/11 1115 1602 1930 0500 0500 Chemistry Sodium (134 - 147 mEq/L) 142 Potassium (3.4 - 5.0 mEq/L) 3.3 Chloride (100 - 108 mEq/L) 95 Carbon Dioxide (21 - 33 mEq/l) > 40 37 Anion Gap (0 - 20) 10 BUN (7 - 18 mg/dL) 24 Creatinine (0.6 - 1.3 mg/dL) 1.0 Glomerular Filtr Rate (70 - 80) 53.6 Glucose (70 - 110 mg/dL) 55 POC Glucose (70 - 110 MG/DL) 137 179 194 Calcium (8.0 - 10.5 mg/dL) 9.1 Magnesium (1.80 - 2.40 mg/dL) 1.80 01/11 01/11 01/11 01/11 01/11 0530 0623 1114 1657 2934 Chemistry POC Glucose (70 - 110 MG/DL) 60 71 140 286 267 01/12 01/12 01/12 01/12 0415 0415 0415 0547 Chemistry Sodium (134 - 147 mEq/L) 139 Potassium (3.4 - 5.0 mEq/L) 3.5 Cancelled Chloride (100 - 108 mEq/L) 96 Carbon Dioxide (21 - 33 mEq/l) 35 Anion Gap (0 - 20) 11 BUN (7 - 18 mg/dL) 13 Creatinine (0.6 - 1.3 mg/dL) 1.0 Glomerular Filtr Rate (70 - 80) 53.6 Glucose (70 - 110 mg/dL) 73 POC Glucose (70 - 110 MG/DL) 100 Calcium (8.0 - 10.5 mg/dL) 9.0 Magnesium (1.80 - 2.40 mg/dL) 1.77 B-Natriuretic Peptide (0 - 100 PG/ML) 180.0 Albumin (3.4 - 5.0 g/dL) 3.60 Prealbumin (16.0 - 40.0 mg/dL) 13.8 Hematology WBC (4.5 - 11.0 x10 3/uL) 6.0 RBC (3.54 - 5.02 x10 6/uL) 2.89 Hgb (11.0 - 15.0 g/dL) 9.8 Hct (33.0 - 45.0 %) 32.7 MCV (81.0 - 99.0 fL) 113.1 MCH (27.0 - 33.0 pg) 33.9 MCHC (33.0 - 37.0 g/dL) 30.0 RDW (11.5 - 14.5 %) 18.9 Plt Count (150 - 400 x10 3/uL) 155 MPV (7.0 - 9.0 fL) 11.6 Neut % (Auto) (56.0 - 77.0 %) 82.8 Lymph % (Auto) (14.0 - 32.0 %) 5.5 Barron % (Auto) (4.8 - 9.0 %) 8.5 Eos % (Auto) (0.3 - 3.7 %) 2.5 Baso % (Auto) (0.0 - 2.0 %) 0.5 Neut # (Auto) (2.0 - 7.6 x10 3/uL) 4.99 Lymph # (Auto) (1.0 - 3.8 x10 3/uL) 0.33 Barron # (Auto) (0.1 - 0.8 x10 3/uL) 0.51 Eos # (Auto) (0.0 - 0.2 x10 3/uL) 0.15 Baso # (Auto) (0.0 - 0.2 x10 3/uL) 0.03 Abs Immat Gran (auto) (0.00 - 0.03 x10 3/uL) 0. 01 Add Manual Diff NO Immature Gran % (0.0 - 2.0 %) 0.2 Nucleated RBC % (0 - 0 %) 0.0 Nucleated RBCs # (Man) (0.0 - 0.1 x10 3/uL) 0.0 0 Poikilocytosis 1+ Anisocytosis 2+ Macrocytosis 1+ Schistocytes 1+ 01/12 01/12 01/12 01/12 01/13 0549 1041 1544 1957 0446 Chemistry POC Glucose (70 - 110 MG/DL) 95 164 233 159 143 Radiology data: Recent Impressions: RADIOLOGY - XR CHEST 1 V 01/09 0941 Report Impression - Status: SIGNED Entered: 01/09/2022 1049 IMPRESSION: 1. Improved aeration bilateral. Residual interst itial and perihilar opacities compatible with edema. Inflammation in the differential. 2. Residual subsegmental atelectasis. 3. Residual small volume pleural effusions. Impression By: Catherine Keetschg, M.D. Diagnosis, Assessment Plan Problem List/A P: 1. Critical illness myopathy 2. CAD (coronary artery disease) 3. Severe mitral regurgitation 4. Constrictive pericarditis 5. S/P CABG x 1 6. S/P MVR (mitral valve replacement) 7. Immunosuppressed status 8. RONA on CPAP 9. Chronic a-fib 10. Crohn disease 11. Morbid obesity 12. Respiratory failure with hypoxia 13. Acute blood loss anemia 14. Generalized weakness 15. Impaired functional mobility, balance, gait , and endurance Free Text A P: Assessment: Critical illness myopathy Constrictive pericarditis Severe mitral regurgitation CAD 12/19: Status post CABG x1 (ROBERTS to LAD), ILAp, p ericardectomy 12/19: S/p MVR 01/06: Echo-EF 55-59%, mild to moderately dilate d right ventricle, LA and RA dilatation, normally functioning MV bioprosthesi s Chronic AF, s/p PPM/ablation-rate controlled-pac ed Volume overload-BLE edema History of lymphedema Generalized weakness Deconditioning Acute blood loss anemia Hypertension Morbid obesity HLD Crohn's disease Smoker Hypoxic respiratory failure Hypokalemia/hypomagnesemia secondary to diuretic s MARCELLO resolved Significant impaired ADLs, mobility, gait, marian ce and endurance Plan: -Comprehensive inpatient rehabilitation with physical, occupational and speech therapy 3 hours a day for 5 to 6 days per week-2 06/19 rehabilitation physician supervision-05/10 rehabilitat ion nursing care-Case management for safe discharge planning-Rehab MD to monitor comorbidities and f unctional progress. -Decubitus prevention-protective hydrating lotio n-turn every 2 hours-offload -Bowel program-MiraLAX and Senokot -Nutrition, monitor the michael ent's p.o. intake, check albumin 3.5 and prealbumin, dietary consult, protein supplements. -Strict fall and safety precaution -DVT prophylaxis-SCDs/antiembolism stockings -GI prophylaxis-Protonix -Glycemic control-continue insulin-blood sugars good-as per medicine -AOO-fsuulnon-dblfheeokf following -Respiratory insufficiency-wean O2-postop pulmon shruthi protocol, encourage I-S, deep cough and breathing exercises, slowly impro ving -CAD s/p CABG, MVR, and ILAA-on DAPT post-op car e per CTS -Acute/chr AF s/p PPM/ablation. Rate controlled, paced rhythm-had ILAA during bypass, no need for AC-as per cardiology -Volume siaezyyx-kvjhrqqu-gz diuretics, strict I 's and O's Daily -HTN. BP stable-on metoprolol -HLD-On statins. -Crohn's disease. Per IM. -Early mobilization-OOB to chair -Work on bed mobility, transfer training , ADLs, pre-gait and gait exercises as tolerable. -Increase endurance and strength -Pain management -Consultants-cardiology, CVS, medicine, nephrolo gy -Labs reviewed-WBC normal, hemoglobin im proved 9.8 improved, platelets normal, potassium 3.5, creatinine 1.0, magnesium 1.77, BNP 232, 180 -replete potassium and magnesium as needed 01/09: SOB-chest x-ray-impro laury aeration bilaterally. Residual interstitial and perihilar opacities. Subsegmental atelectasis. R esidual small volume pleural effusions. -Continue CPAP at night -Encourage I-S and ambulation -BLE edema-ANA PAULA hose and elevation, exercise, diu retics -Diuresis as per cardiology -Anemia-continue ferrous sulfate, B12, vitamin C monitor H H -Monitor telemetry -Nausea-Zofran -Continue current medications -Sternal incision intact and healing. Co ntinue sternal precautions for 6 weeks -Monitor complains of being tired and sleepy -Therapeutic rest break given in between due to fair activity tolerance and patient reported Omaira RPE 4 (1-10) somewhat Hard SOB during activity. -Patient still with SOB and desaturates with exercise-we will have Dr. Fortune evaluate patient. -Check labs in a.m. -Advance therapies as tolerated Progress: Transfer from toilet<>W/C with SBA. Gait training 75 ft, 50 ft using RW with SBA, occasional cues on pacing and facilitation of symmetrical stance. W/C Mobility 150 ft using BLE for propulsion wi SBA. Seated AROME on BLE x 20 reps x 3 sets, AP. Sit<>stand x 5 reps with SBA. PM R Please see team note. Plan and goals discussed with the patient. I agree with the teams finding ELOS: [01/21] LX-qhbp-oaivn with daughter-HH versus outpatient cardiac rehabilitation DME-RW, wheelchair TT 36 min>50% with discussin g with patient about team conference, discharge plan , SOB, therapies, potassium repletion, diuretics , rehab plan of care, goals, needs, and medical issues, examination. MAR and EMR reviewed. All Questions answered. Orders: Procedure Date/time Status MAGNESIUM 01/15 400 Active BASIC METABOLIC PANEL 01/15 400 Active NEB TREATMENT SUBSQ 01/13 0551 Active OXYGEN PER HOUR 01/13 200 Complete CPAP/BIPAP ADULT/CHILD 01/13 200 Complete NEB TREATMENT SUBSQ 01/12 2034 Active Consultants: cardiology, cardiovascular surgery, hospitalist, nephrology Plan discussed with: patient, nurse, interdisc c are team Rehab attestation: Face to face exam completed. Treatment plan disc ussed with patient. Meets continued stay criteria. Agree with interdiscipl inary treatment plan. at 1204 RPT #:[id number] END OF REPORT 2022-01-12 16:22:00-00:00 [facility] REPORT#:[id number] REPORT STATUS: Signed DATE:01/12/22 TIME: 1622 PATIENT: SAÚL GILES UNIT #: [id number] ROOM/BED: [place] [address] : 43 AGE: 76 SEX: F ATTEND: Shaun Landry MD ADM AUTHOR: Suki Fuchs MD * ALL edits or amendments must be made on the [facility]/computer document * Subjective Chief complaint: CAD, S/P CABG HPI: This is a 76-year-old female who has past medica l history of hypertension, diabetes, coronary artery disease, atrial fibril lation who presented with worsening shortness of breath and on further wor k-up was 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 She was with normal kidney function prior to surgery and afte r her surgery she began to develop oliguria. Her procedure was done without any complications but after her surgery she did require pressor support for hypotension and she was intubated for respiratory acidosis and hypoxia a nd she was treated with vancomycin for infection treatment. She recovered kidney function and has been on diuretics for hypervolemia which has also imp roved significantly. 01/12 She was seen in rehab today and was doin g well, nursing staff reporting eating well. Objective General VS/I O: Vital Signs: Date Time Temp Pulse Resp B/P B/P Pulse O2 O2 F low FiO2 Mean Ox Delivery Rate 01/14 732 36.5 75 17 133/76 95.4 99 Nasal 4 cannula 01/13 0315 95 Nasal 4 cannula 01/12 2308 36.5 82 20 119/72 0.0 96 01/12 2255 70 96 40 01/12 2032 95 Nasal 4 cannula 01/12 2000 Nasal 4 cannula 01/12 1913 36.7 76 19 133/78 96.0 93 Nasal 2 cannula 01/12 1545 36.7 69 18 119/70 86.3 95 Nasal cannula 01/12 1505 Nasal 4 cannula 01/12 1408 Nasal 4 cannula 01/12 1003 99 Nasal 4 cannula 24 hour I O ending at 0700: 01/13 0700 01/12 1900 Intake Total 200 Output Total Balance 200 Intake, Oral 200 Number 0 Incontinent Voids Number Voids 7 Patient 115.091 kg Weight Weight Standing scale Measurement Method PATIENT WEIGHT: Weight (lb): 253 Weight (oz): 11.72 Weight (kg): 115.091 Physical Exam General appearance: sleeping comfortably Head/eyes: atraumatic, EOMI ENT: moist mucous membranes, normal nose Neck: no JVD, no lymphadenopathy Cardiovascular: normal heart sounds, regular rat e and rhythm Respiratory: aerating well, clear to auscultatio n Abdomen: non-tender, soft Genitourinary: no bladder distention, no flank p ain Extremities: pitting edema, no gangrene, no swel ling Diagnosis, Assessment Plan Free Text A P: This is a 76-year-old female known to have hyper tension, diabetes, atrial fibrillation, s/p permanent pacemaker and histor y of ablation presenting with shortness of breath and found to have multivesse l coronary artery disease therefore she had CABG on December 19 after which she has developed oliguria. Nephrology is following for: 1. Acute kidney injury: Most likely it i s prerenal (cardiorenal), she has been hypotensive postoperatively with require ment for pressor support and inotropic support. Resolved with stable hemodynamics 2. Hypervolemia:Improved, on low dose lasix. 3. Hypokalemia: Plan to replace nd monitor close ly. 4. Metabolic alkalosis secondary to diur etics. Plan to monitoe and give diamox if worsens. 01/09 1. Acute kidney injury: Most likely it i s prerenal (cardiorenal), she has been hypotensive postoperatively with require ment for pressor support and inotropic support. Resolved with stable hemodynamics 2. Hypervolemia:Improved, on low dose lasix. 3. Hypokalemia: Plan to replace and monitor clos faustina. 4. Metabolic alkalosis secondary to diuretics. P juan to monitor and continue diamox. 01/10 1. Acute kidney injury: Most likely it i s prerenal (cardiorenal), she has been hypotensive postoperatively with require ment for pressor support and inotropic support. Resolved with stable hemodynamics 2. Hypervolemia:Improved, on low dose la six.Dose increased to 40 Q12H today as she was looking volume overloaded. 3. Hypokalemia: Plan to replace and monitor clos faustina. 4. Metabolic alkalosis secondary to diuretics. P juan to monitor and continue diamox. 01/12 1. Acute kidney injury: Most likely it i s prerenal (cardiorenal), she has been hypotensive postoperatively with require ment for pressor support and inotropic support. Resolved with stable hemodynamics. 2. Hypervolemia:Improved, on low dose lasix.Dose increased to 40 Q12H as she was looking volume overloaded. 3. Hypokalemia: Plan to replace and monitor clos faustina. 4. Metabolic alkalosis secondary to diuretics. P juan to monitor and continue diamox. Consultants: cardiology, cardiovascular surgery, hospitalist, nephrology Electronically Signed by Suki Fuchs MD on at 0832 RPT #:[id number] END OF REPORT 2022-01-12 14:16:00-00:00 [facility] Rehab Team Conference REPORT#:[id number] REPORT STATUS: Signed DATE:01/12/22 TIME: 1416 PATIENT: SAÚL GILES UNIT #: [id number] ROOM/BED: [place] [address] : 43 AGE: 76 SEX: F ATTEND: Shaun Landry MD ADM AUTHOR: Jesus Landry MD * ALL edits or amendments must be made on the el [employer]/computer document * Rehabilitation Team Conference Weekly Team Conference Team conf information: Date of conference: 01/12/22 Conference type: Interim Conference scribe: Luda Correa, REYNALDO INTERDISCIPLINARY TEAM MEETING PARTICIPANTS: TITLE NAME MD Jesus Landry MD RN Leonard Fajardo, RN PT Moshe Benton, PT OT Gabriele Delgado, OT CM/TIFFANY Arredondo, CM Vanessa Pastor, REYNALDO [facility] Luda Correa, REYNALDO Staff (8) NO ATTENDEE Staff (9) NO ATTENDEE OTHER NAME CREDENTIALS 1 STEFANO PERRY DIETITIAN 2 FUNCTIONAL CHANGE: TYPE ADMISSION TOTAL INTERIM TOTAL CHANGE Self care 19 26 7 Transfer 23 31 8 Mobility 11 17 6 Wheelchair distance: Mobility description: BOWEL AND BLADDER STATUS: Bowel continence admission rating: Bladder continence admission rating: Always cont inent Bowel and bladder team conference update: CONTIN ENT X 2. LBM 10-30 INTERDISCIPLINARY TEAM UPDATES: DALILA team conference update: A/O X 4, ON 3 LITERS OXYGEN NC, BIPAP AT NIGHT WEARING ON AND OFF, CONTINENT X 2, PT VOIDING FR EQUENTLY AT NIGHT CAUSING HER DIFFICULTY TO SLEEP, NO REPORT OF PAIN O R DISCOMFORT WITH VOIDING, PT IS ON PO LASIX BID, MIN ASSIST WITH TRANFERES GÓMEZ RNAL PRECAUTIONS, ACHS(267,287,140,71) PITTING +2 EDEMA IN BILATERAL LEGS, GENERALIZED SWELLING. MINOR PAIN TO CHEST INCISION WITH COUGHING, MIDLINE INCISION ASHISH, ABD. PUNTURE SITES WITH SUTURES, EXCORIATION TO GROIN AREA. HGB:8.7, HCT:28.4, K: 3.3. VITAL SIGNS WNL. PT team conference update: Pt sit to sta nd with SBA/CG. Ambualtes with RW with SBA/CG for 55 feet OT team conference update: PATIENT IS MAKING PRO GONZALO WITH ADL FUNCTIONS. FUNCTIONAL TRANSFERS - TOILE T/SHOWER - CGA SELF FEEDING - IND ORAL HYGIENE - IND UBD - CGA LB DRESSING - MODA USING AD TOILETING - MODA TO WIPE (RECOMMENDED TOILETING AIDE) BATHING - MO DA FOOTWEAR - TOTALA (UNABLE TO USE AD SECONDARY TO B LE SWELLING) BARRIERS - POOR ACTIVITY TOLERANC E RECOMMENDED GRAB BARS FOR BATHROOM BUT PATIENT HAS NO SPACE FOR GRAB BY HE R TOILET PATIENT WOULD BENEFIT FROM BARIATRIC COMMODE FOR HOME. PATIENT WOULD BENEFIT FROM HH OT AND CAREGIVER ASSISTANCE ST team conference update: CM or SW team conference upd ate: PT LIVES AT HOME WITH DAUGHTER. HOME OXYGEN. D/ C PLAN PENDING FURTHER ASSESSMENT. Other discipline update 1: PO INTAKE: 50-80% OF A DIABETIC DIET WITH GULCERNA TID Other discipline update 2: Other discipline update 3: REHAB DC GOALS: Patient's identified discharge goal: PT: Pt ABLE TO WALK Eating discharge goal: Independent (6) Shower/bathe self discharge goal: Independent ( 6) Upper body dressing discharge goal: Independent (6) Lower body dressing discharge goal: Independent (6) Chair/bed to chair transfer discharge goal: Ind ependent (6) Transfer on/off toilet or commode discharge goa l: Independent (6) Walking 50 feet with two turns discharge goal: Independent (6) Walking 150 feet discharge goal: Independent (6 ) Four steps discharge goal: Partial/moderate ass t (3) Twelve steps discharge goal: Not applicable [place] 150 feet discharge goal: Supervise/diana ch asst (4) Goal 1 - Bowel function: PT WILL MAINTAIN NORMAL BOWEL FUNCTION IN REHAB STAY Goal 2 - Bladder function: PT WILL MAINTAIN NORM AL BLADDER FUNCITON IN REHAB STAY Nursing goal 3: PT WILL MAINTAIN SKIN INTEGRITY Nursing goal 4: PT WILL SKY IN FREE OF FALLS AND INJURIES THROUGHOUT REHAB STAY Nursing goal 5: DISCHARGE PLANNING: Barriers to discharge: DEFICITS W ADLS , IMPAIRE D ENDURANCE, STERNAL PREACVUTIONS Strategies for D/C barriers: ADL TRAINING, ENDUR ANCE TRAINING, COMPENSATORY STRATEGIES Estimated length of stay in days: 14 Anticipated discharge date: 01/21/22 Discharge date adjustment comment: Identified financial and/or community resource n eeds: Family/Caregiver training da ys: PT AND FAMILY WILL BE EDUCATED ON THE USE OF THE GAIT BELT TO LOWER THE PT TO THE FLOOR IN THE EV ENT OF LOSS OF BALANCE TO PREVENT FALL OR INJURY. FAMILY TRAINING: TO BE S CHEUDLED BY THERAPY [place] day (DATE): 01/20/22 Expected discharge destination: Home VS CARDIAC REHAB Anticipated services upon discharge: Occupationa l therapy, Physical therapy, Home health, Nursing Anticipated discharge equipment: RW, WC-20" Impairment group: neurologic conditions NOTE Document ONLY ONE Impairment Group Neurologic conditions: neuromuscular disorders Etiologic diagnosis: Critical illness myopathy Review of comorbidities: CAD, MITRAL VALVE REPLACEMENT 12/23, CORONARY ARTERY BYPASS, Pericardiectomy., OBESITY, RONA, HTN, HLD, DIABETES, CROHN'S DISEASE, CHRONIC A FIB, PACEMAKER, ANEMIA, HYPOXIC RESPIRATORY FAILURE, on BiPap MD Review/Recommendations Attestation: This interdisciplinary team conference was led terrance ozuna and I concur with all decisions made during the team conference and re visions to the individualized overall plan of care. IRF cont stay criteria See my note at 1417 RPT #:[id number] END OF REPORT 2022-01-12 10:50:00-00:00 [facility] Hospitalist Progress Note REPORT#:[id number] REPORT STATUS: Signed DATE:01/12/22 TIME: 1050 PATIENT: SAÚL GILES UNIT #: [id number] ROOM/BED: [place] [address] : 43 AGE: 76 SEX: F ATTEND: Shaun Landry MD ADM AUTHOR: Meryl Rosa MD * ALL edits or amendments must be made on the [employer]/computer document * Subjective Chief complaint: she is tire and not sleep well . she is on bipap at night Review of Systems Constitutional: Reports: fatigue, generalized weakness. Denies: fever, lethargy. Respiratory: Denies: SOB, wheezing. Cardiovascular: Denies: chest pain, DOUGLASS (dyspnea on exertion), e ana, orthopnea. GI: Denies: abdominal pain, nausea, vomiting. Neuro: Denies: dizziness, headache. Objective General VS/I O: Vital Signs: Date Time Temp Pulse Resp B/P B/P Pulse O2 O2 F low FiO2 Mean Ox Delivery Rate 01/12 1003 99 Nasal 4 cannula 01/12 0707 36.5 70 17 108/62 0.0 100 Nasal cannula 10/30 2342 69 18 110/50 0.0 100 BiPAP mask 01/11 2107 76 99 40 01/11 2100 Nasal 3 cannula 01/11 2059 93 Room air 21 01/11 1907 36.7 71 18 117/61 79.8 95 Nasal 2 cannula 01/11 1529 36.4 73 18 137/66 89.3 97 01/11 1327 Nasal 3 cannula 24 hour I O ending at 0700: 01/12 0700 01/11 1900 Intake Total 240 836 Output Total 0 Balance 240 836 Intake, Oral 240 360 Intake, Oral 476 Supplement Number 0 Bowel Movements Number 0 0 Incontinent Voids Number Voids 5 1 Output, Stool 0 Patient 112.8 kg Weight Weight Bed scale Measurement Method PATIENT WEIGHT: Weight (lb): 248 Weight (oz): 10.9 Weight (kg): 112.800 Medications: Active Meds + DC'd Last 24 Hrs Magnesium Chloride (MAG 64MG) 64 MG BID PO Furosemide (LASIX) 40 MG BID 9A 5P PO Lisinopril (ZESTRIL) 2.5 MG DAILY PO Ascorbic Acid (ASCORBIC ACID) 500 MG BID PO Bisacodyl (DULCOLAX) 10 MG DAILY PRN PRN RECTAL Potassium Chloride (POTASSIUM CHLORIDE 20MEQ TAB .ER) 40 MEQ DAILY PRN PRN PO Acetazolamide (DIAMOX) 250 MG DAILY PO Aspirin (ASPIRIN) 81 MG DAILY PO Clopidogrel Bisulfate (Plavix) 75 MG DAILY PO Cyanocobalamin (Vitamin B-12 500 mcg tab) 500 MC G DAILY PO Ferrous Sulfate (FERROUS SULFATE) 325 MG DAILY P O Insulin Glargine (Lantus/Semglee) 30 UNIT DAILY SUBQ Polyethylene Glycol (MIRALAX) 17 GM DAILY PO Sodium Chloride (SODIUM CHLORIDE) 10 ML BID IV Insulin Human Lispro (HUMALOG) 0 AC HS SUBQ Pantoprazole (PROTONIX) 40 MG DAILY@0600 PO Acetylcysteine (MUCOMYST FOR RT) 200 MG RTQ6H NE B Albuterol/Ipratropium (DUONEB) 3 ML RTQ6H NEB Glucagon (GLUCAGON) 1 MG ASDIR PRN IM Acetaminophen (TYLENOL) 650 MG Q4H PRN PRN PO Bisacodyl (DULCOLAX) 5 MG DAILY PRN PRN PO Dextrose/Water (DEXTROSE 10% IN WATER) 250 ML DIR PRN IV (CKD) Sodium Chloride (SODIUM CHLORIDE) 4 ML RTBID NEB Amiodarone HCl (CORDARONE) 200 MG Q12HR PO Atorvastatin Calcium (LIPITOR) 40 MG 2100 PO Docusate Sodium (COLACE) 100 MG BID PO Insulin Glargine (Lantus/Semglee) 20 UNIT BEDTIM E SUBQ Melatonin (Melatonin) 3 MG BEDTIME PO Metoprolol Tartrate (LOPRESSOR) 25 MG Q12HR PO Ondansetron HCl (ZOFRAN ODT) 4 MG TID PRN PRN PO Sennosides (Senna Lax 8.6 MG TABLET) 17.2 MG BED TIME PO Physical Exam General appearance: alert, awake, oriented, no a cute distress Head/Eyes: atraumatic, normal conjunctiva/sclera , normal eyelids/periorb. Neck: full range of motion, non-tender Cardiovascular: normal heart sounds, regular rat e rhythm Respiratory: dyspneic, on oxygen Abdomen: non-tender, normal bowel sounds, soft, no distention Extremities: edema, moves all 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, 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, CNII-XII intact, normal speech, no motor deficits, no sensory deficits Skin: dry, intact Results Findings/Data: Laboratory Tests 01/12 01/12 01/12 01/12 01/11 0549 0547 0415 [id number] Chemistry Sodium (134 - 147 mEq/L) 139 Potassium (3.4 - 5.0 mEq/L) 3.5 Chloride (100 - 108 mEq/L) 96 L Carbon Dioxide (21 - 33 mEq/l) 35 H Anion Gap (0 - 20) 11 BUN (7 - 18 mg/dL) 13 Creatinine (0.6 - 1.3 mg/dL) 1.0 Glomerular Filtr Rate (70 - 80) 53.6 L Glucose (70 - 110 mg/dL) 73 POC Glucose (70 - 110 MG/DL) 95 100 267 H Calcium (8.0 - 10.5 mg/dL) 9.0 Magnesium (1.80 - 2.40 mg/dL) 1.77 L B-Natriuretic Peptide (0 - 100 PG/ML) 180.0 H Albumin (3.4 - 5.0 g/dL) 3.60 Prealbumin (16.0 - 40.0 mg/dL) 13.8 L 01/11 01/11 1657 1114 Chemistry POC Glucose (70 - 110 MG/DL) 286 H 140 H Laboratory Tests 01/12 0415 Hematology WBC (4.5 - 11.0 x10 3/uL) 6.0 RBC (3.54 - 5.02 x10 6/uL) 2.89 L Hgb (11.0 - 15.0 g/dL) 9.8 L Hct (33.0 - 45.0 %) 32.7 L MCV (81.0 - 99.0 fL) 113.1 H MCH (27.0 - 33.0 pg) 33.9 H MCHC (33.0 - 37.0 g/dL) 30.0 L RDW (11.5 - 14.5 %) 18.9 H Plt Count (150 - 400 x10 3/uL) 155 MPV (7.0 - 9.0 fL) 11.6 H Neut % (Auto) (56.0 - 77.0 %) 82.8 H Lymph % (Auto) (14.0 - 32.0 %) 5.5 L Barron % (Auto) (4.8 - 9.0 %) 8.5 Eos % (Auto) (0.3 - 3.7 %) 2.5 Baso % (Auto) (0.0 - 2.0 %) 0.5 Neut # (Auto) (2.0 - 7.6 x10 3/uL) 4.99 Lymph # (Auto) (1.0 - 3.8 x10 3/uL) 0.33 L Barron # (Auto) (0.1 - 0.8 x10 3/uL) 0.51 Eos # (Auto) (0.0 - 0.2 x10 3/uL) 0.15 Baso # (Auto) (0.0 - 0.2 x10 3/uL) 0.03 Abs Immat Gran (auto) (0.00 - 0.03 x10 3/uL) 0. 01 Add Manual Diff NO Immature Gran % (0.0 - 2.0 %) 0.2 Nucleated RBC % (0 - 0 %) 0.0 Nucleated RBCs # (Man) (0.0 - 0.1 x10 3/uL) 0.0 0 Poikilocytosis 1+ Anisocytosis 2+ Macrocytosis 1+ Schistocytes 1+ Diagnosis, Assessment Plan Consultants: cardiology, cardiovascular surgery, hospitalist, nephrology Free Text DxA P Notes Free text DxA P notes: general weakness CAD - post CABG CHF HTN DM HLD afib RONA morbid obesity CAD -- cardiology consult CV surgeon consult CABG --post procedure ASA/lipitor Echocardiogram showed EF 55 to 59% edema --lasix /zaroxolyn -- monitor renal function weakness --PT/OT as rehab afib -- rate control -- xarelto/amiodarone /metoprolol HTN-- metoprolol/norvasc DM-- on lantus -- sliding scale HLD-- on lipitor RONA--cpap as nigth DVTP -- xarelto 01/09-- she feel tire after PT -- complaint of sob at night --bipap at night -- continue lasix -- replace K 01/10 Continue bowel regimen, adjust as needed i f no results. Replace K. 01/11 +BM. Replace K+, discussed with RN to give PRN K on - she complaint of tire - not sleep well last night -- continue bipap at night -- continue PT/OT Electronically Signed by Meryl Rosa MD on 2 at 1053 RPT #:[id number] END OF REPORT 2022-01-12 09:40:00-00:00 [facility] Cardiology Progress Note REPORT#:[id number] REPORT STATUS: Signed DATE:01/12/22 TIME: 0940 PATIENT: SAÚL GILES UNIT #: [id number] ROOM/BED: [place] [address] : 43 AGE: 76 SEX: F ATTEND: Shaun Landry MD ADM AUTHOR: Isabella Clemens PHP MYSQL DEVELOPER * ALL edits or amendments must be made on the [employer] document * Subjective Comments: No new complaint. States she feels tired and sle epy Objective General VS/I O: 24 hour I O ending at 0700: 01/12 0700 01/11 1900 Intake Total 240 836 Output Total 0 Balance 240 836 Intake, Oral 240 360 Intake, Oral 476 Supplement Number 0 Bowel Movements Number 0 0 Incontinent Voids Number Voids 5 1 Output, Stool 0 Patient 112.8 kg Weight Weight Bed scale Measurement Method Vital Signs: Date Time Temp Pulse Resp B/P B/P Pulse O2 O2 F low FiO2 Mean Ox Delivery Rate 01/12 0707 36.5 70 17 108/62 0.0 100 Nasal cannula 01/11 2342 69 18 110/50 0.0 100 BiPAP mask 01/11 2107 76 99 40 01/11 2100 Nasal 3 cannula 01/11 2059 93 Room air 21 01/11 1907 36.7 71 18 117/61 79.8 95 Nasal 2 cannula 01/11 1529 36.4 73 18 137/66 89.3 97 01/11 1327 Nasal 3 cannula PATIENT WEIGHT: Weight (lb): 248 Weight (oz): 10.9 Weight (kg): 112.800 Medications: Active Meds + DC'd Last 24 Hrs Magnesium Chloride (MAG 64MG) 64 MG BID PO (UNV) Furosemide (LASIX) 40 MG BID 9A 5P PO Lisinopril (ZESTRIL) 2.5 MG DAILY PO Ascorbic Acid (ASCORBIC ACID) 500 MG BID PO Bisacodyl (DULCOLAX) 10 MG DAILY PRN PRN RECTAL Potassium Chloride (POTASSIUM CHLORIDE 20MEQ TAB .ER) 40 MEQ DAILY PRN PRN PO Acetazolamide (DIAMOX) 250 MG DAILY PO Aspirin (ASPIRIN) 81 MG DAILY PO Clopidogrel Bisulfate (Plavix) 75 MG DAILY PO Cyanocobalamin (Vitamin B-12 500 mcg tab) 500 MC G DAILY PO Ferrous Sulfate (FERROUS SULFATE) 325 MG DAILY P O Insulin Glargine (Lantus/Semglee) 30 UNIT DAILY SUBQ Polyethylene Glycol (MIRALAX) 17 GM DAILY PO Sodium Chloride (SODIUM CHLORIDE) 10 ML BID IV Insulin Human Lispro (HUMALOG) 0 AC HS SUBQ Pantoprazole (PROTONIX) 40 MG DAILY@0600 PO Acetylcysteine (MUCOMYST FOR RT) 200 MG RTQ6H NE B Albuterol/Ipratropium (DUONEB) 3 ML RTQ6H NEB Glucagon (GLUCAGON) 1 MG ASDIR PRN IM Acetaminophen (TYLENOL) 650 MG Q4H PRN PRN PO Bisacodyl (DULCOLAX) 5 MG DAILY PRN PRN PO Dextrose/Water (DEXTROSE 10% IN WATER) 250 ML DIR PRN IV (CKD) Sodium Chloride (SODIUM CHLORIDE) 4 ML RTBID NEB Amiodarone HCl (CORDARONE) 200 MG Q12HR PO Atorvastatin Calcium (LIPITOR) 40 MG 2100 PO Docusate Sodium (COLACE) 100 MG BID PO Insulin Glargine (Lantus/Semglee) 20 UNIT BEDTIM E SUBQ Melatonin (Melatonin) 3 MG BEDTIME PO Metoprolol Tartrate (LOPRESSOR) 25 MG Q12HR PO Ondansetron HCl (ZOFRAN ODT) 4 MG TID PRN PRN PO Sennosides (Senna Lax 8.6 MG TABLET) 17.2 MG BED TIME PO Pacemaker: permanent Physical Exam General appearance: obese, no acute distress, pl easant, conversational Neck: no JVD Cardiovascular: CV assessment: regular rate and rhythm Respiratory: decreased breath sounds, no distres s Abdomen: soft, non-tender, normal bowel sounds, no distention Genitourinary: no flank pain, no urinary cathete r Upper extremity: UE assessment: no edema Lower extremity: LE assessment: edema (trace) Musculoskeletal: normal inspection 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, 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, normal speech Skin: poor skin turgor Psychiatry: normal affect, normal mood Results Findings/Data: Laboratory Tests 01/12 01/12 01/12 01/12 01/11 0549 0547 0415 0416 1916 Chemistry Sodium (134 - 147 mEq/L) 139 Potassium (3.4 - 5.0 mEq/L) 3.5 Chloride (100 - 108 mEq/L) 96 L Carbon Dioxide (21 - 33 mEq/l) 35 H Anion Gap (0 - 20) 11 BUN (7 - 18 mg/dL) 13 Creatinine (0.6 - 1.3 mg/dL) 1.0 Glomerular Filtr Rate (70 - 80) 53.6 L Glucose (70 - 110 mg/dL) 73 POC Glucose (70 - 110 MG/DL) 95 100 267 H Calcium (8.0 - 10.5 mg/dL) 9.0 Magnesium (1.80 - 2.40 mg/dL) 1.77 L B-Natriuretic Peptide (0 - 100 PG/ML) 180.0 H Albumin (3.4 - 5.0 g/dL) 3.60 Prealbumin (16.0 - 40.0 mg/dL) 13.8 L 01/11 01/11 1657 1114 Chemistry POC Glucose (70 - 110 MG/DL) 286 H 140 H Laboratory Tests 01/12 0415 Hematology WBC (4.5 - 11.0 x10 3/uL) 6.0 RBC (3.54 - 5.02 x10 6/uL) 2.89 L Hgb (11.0 - 15.0 g/dL) 9.8 L Hct (33.0 - 45.0 %) 32.7 L MCV (81.0 - 99.0 fL) 113.1 H MCH (27.0 - 33.0 pg) 33.9 H MCHC (33.0 - 37.0 g/dL) 30.0 L RDW (11.5 - 14.5 %) 18.9 H Plt Count (150 - 400 x10 3/uL) 155 MPV (7.0 - 9.0 fL) 11.6 H Neut % (Auto) (56.0 - 77.0 %) 82.8 H Lymph % (Auto) (14.0 - 32.0 %) 5.5 L Barron % (Auto) (4.8 - 9.0 %) 8.5 Eos % (Auto) (0.3 - 3.7 %) 2.5 Baso % (Auto) (0.0 - 2.0 %) 0.5 Neut # (Auto) (2.0 - 7.6 x10 3/uL) 4.99 Lymph # (Auto) (1.0 - 3.8 x10 3/uL) 0.33 L Barron # (Auto) (0.1 - 0.8 x10 3/uL) 0.51 Eos # (Auto) (0.0 - 0.2 x10 3/uL) 0.15 Baso # (Auto) (0.0 - 0.2 x10 3/uL) 0.03 Abs Immat Gran (auto) (0.00 - 0.03 x10 3/uL) 0. 01 Add Manual Diff NO Immature Gran % (0.0 - 2.0 %) 0.2 Nucleated RBC % (0 - 0 %) 0.0 Nucleated RBCs # (Man) (0.0 - 0.1 x10 3/uL) 0.0 0 Laboratory Tests 01/12 01/12 0415 0415 Chemistry Magnesium (1.80 - 2.40 mg/dL) 1.77 L B-Natriuretic Peptide (0 - 100 PG/ML) 180.0 H Diagnosis, Assessment Plan Problem List/A P: 1. CAD (coronary artery disease) 2. Severe mitral regurgitation 3. Chronic a-fib 4. S/P CABG x 1 5. S/P MVR (mitral valve replacement) Plan discussed with: patient Free Text DxA P Notes Free Text DxA P Notes: Ms Giles is a 76 y/o female with PMHx of CAD, HL D, T2DM, RONA (CPAP at home), smoker, Crohn's disease, AF s/p ablation s/p PPM, and chronic lymphedema. She is recovering from CABG and MVR. She is transferred to [facility] for inpatient rehabilitation. Cardiolgy is consulted f or continuity of cardiac-related care. 1. CAD s/p CABG, MVR, and ILAA. On Plavix, aspirin, beta-delma, statin 2. Chronic AF s/p PPM/ablation. had ILAA during bypass no need for AC keep K >4 and Mag above 2 taper amiodarone prior to discharge 3. Chronic Diastolic CHF - euvolemic on PO Lasix 4. Hypertension - BP on the softer side today BP range 108-137/50-66 mmHg continue metoprolol tartrate 25 mg BID low dose lisinopril added by nephrology 5. Hyperlipidemia Continue statins. 6. MARCELLO - resolved per Nephrology continue Rehab at 1138 Electronically Signed by Aruna Fortune MD on at 1725 RPT #:[id number] END OF REPORT 2022-01-12 09:23:00-00:00 [facility] REPORT#:[id number] REPORT STATUS: Signed DATE:01/12/22 TIME: 922 PATIENT: SAÚL GILES UNIT #: [id number] ROOM/BED: [place] [address] : 43 AGE: 76 SEX: F ATTEND: Jesus Landry MD ADM AUTHOR: Jesus Landry MD * ALL edits or amendments must be made on the [facility]/computer document * Subjective Chief complaint: Rehab follow-up Still complains of SOB Using CPAP at night Patient on 3-4 L, sats 100% NAD, eating 50-80% Reports BLE edema Positive BM Denies GOLD/N/V/D/CP 14 systems reviewed and neg. except that above. Objective General VS: Vital Signs: Date Time Temp Pulse Resp B/P B/P Pulse O2 O2 Flow FiO2 Mean Ox Delivery Rate 01/12 0707 97.7 70 17 108/62 0.0 100 Nasal cannula 01/11 2342 69 18 110/50 0.0 100 BiPAP mask 01/11 2107 76 99 40 01/11 2100 Nasal 3 cannula 01/11 2059 93 Room air 21 01/11 1907 98.1 71 18 117/61 79.8 95 Nasal 2 cannula 01/11 1529 97.5 73 18 137/66 89.3 97 01/11 1327 Nasal 3 cannula PATIENT WEIGHT: Weight (lb): 248 Weight (oz): 10.9 Weight (kg): 112.800 Medications: Active Meds + DC'd Last 24 Hrs Furosemide (LASIX) 40 MG BID 9A 5P PO Lisinopril (ZESTRIL) 2.5 MG DAILY PO Ascorbic Acid (ASCORBIC ACID) 500 MG BID PO Bisacodyl (DULCOLAX) 10 MG DAILY PRN PRN RECTAL Potassium Chloride (POTASSIUM CHLORIDE 20MEQ TAB .ER) 40 MEQ DAILY PRN PRN PO Acetazolamide (DIAMOX) 250 MG DAILY PO Aspirin (ASPIRIN) 81 MG DAILY PO Clopidogrel Bisulfate (Plavix) 75 MG DAILY PO Cyanocobalamin (Vitamin B-12 500 mcg tab) 500 MC G DAILY PO Ferrous Sulfate (FERROUS SULFATE) 325 MG DAILY P O Insulin Glargine (Lantus/Semglee) 30 UNIT DAILY SUBQ Polyethylene Glycol (MIRALAX) 17 GM DAILY PO Sodium Chloride (SODIUM CHLORIDE) 10 ML BID IV Insulin Human Lispro (HUMALOG) 0 AC HS SUBQ Pantoprazole (PROTONIX) 40 MG DAILY@0600 PO Acetylcysteine (MUCOMYST FOR RT) 200 MG RTQ6H NE B Albuterol/Ipratropium (DUONEB) 3 ML RTQ6H NEB Glucagon (GLUCAGON) 1 MG ASDIR PRN IM Acetaminophen (TYLENOL) 650 MG Q4H PRN PRN PO Bisacodyl (DULCOLAX) 5 MG DAILY PRN PRN PO Dextrose/Water (DEXTROSE 10% IN WATER) 250 ML DIR PRN IV (CKD) Sodium Chloride (SODIUM CHLORIDE) 4 ML RTBID NEB Amiodarone HCl (CORDARONE) 200 MG Q12HR PO Atorvastatin Calcium (LIPITOR) 40 MG 2100 PO Docusate Sodium (COLACE) 100 MG BID PO Insulin Glargine (Lantus/Semglee) 20 UNIT BEDTIM E SUBQ Melatonin (Melatonin) 3 MG BEDTIME PO Metoprolol Tartrate (LOPRESSOR) 25 MG Q12HR PO Ondansetron HCl (ZOFRAN ODT) 4 MG TID PRN PRN PO Sennosides (Senna Lax 8.6 MG TABLET) 17.2 MG BED TIME PO Functional Progress Functional progress: - - OT INTERIM CARE - - Eating: Yes Oral hygiene: Yes Shower/ bathing: Yes Dressing upper body: Yes Dressing lower body: Yes Footwear: Yes - - OT INTERIM EATING - - Patient eats by mouth: Yes Eats by mouth independently: Yes Interim eating CARE score: Independent (6) - - OT INTERIM ORAL HYGIENE - - Patient performed oral hygiene: Yes Performed oral hygiene independently: Yes Interim oral hygiene CARE score: Independent (6 ) - - OT INTERIM SHOWER/BATHING - - Patient bathed or showered: Yes Bathed or showered self independently: No Required setup or cleanup ONLY to bathe or show er self: No Required spv/verbal cues/CGA ONLY to bathe or s hower self: No Completed at least 50% effort to bathe or showe r self: Yes Interim bathing CARE score: Partial/moderate (3 ) Bathing CARE comment: MODA TO WASH LE, BACK, BUTTOCKS - - OT INTERIM DRESSING UPPER BODY - - Patient dressed/undressed upper body: Yes Dressed/undressed upper body independently: No Required setup or cleanup ONLY to dress/undress upper body: No Required spv/verbal cues/CGA ONLY to dress/undr ess upper body: Yes Interim upper body dressing CARE score: Supervi alfred/touch (4 ) - - OT INTERIM DRESSING LOWER BODY - - Patient dressed/undressed lower body: Yes Dressed/undressed lower body independently: No Required setup or cleanup ONLY to dress/undress lower body: No Required spv/verbal cues/CGA ONLY to dress/undr ess lower body: No Completed lower body dressing/undressing: At le ast 50% of effort Interim lower body dressing CARE score: Partial /moderate (3) Dressed/undressed lower body CARE comment: MODA TO THREAD LEGS USING 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 - - OT INTERIM FOOTWEAR - - Patient put on/removed footwear: Yes Put on/removed footwear independently: No Required setup or cleanup ONLY to put on/remov e footwear: No Required spv/verbal cues/CGA ONLY to put on/rem ove footwear: No Put on/removed footwear: Pt does no effort Interim footwear CARE score: Dependent (1) Put on/removed footwear CARE comment: UNABLE TO USE AD SECONADRY TO B LE EDEMA Physical Exam General appearance: alert, awake, no acute distr ess Psych: alert, normal affect, oriented x 3 HEENT: anicteric, mucosal membranes moist, pupil s reactive to light, sclera clear Neck: non-tender, supple, no JVD Cardiovascular: regular rate rhythm, S1/S2, no m urmur Respiratory: diminished breath sounds, on oxygen , clear bilaterally Abdomen: obese, bowel sounds present, non-disten ded, soft, non-tender Skin: dry, normal temperature, no rash, INCISION S: CDI, sutures x 2. 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 Results Findings/Data: Laboratory Tests: 01/12 01/12 01/12 01/11 01/11 0549 0547 0415 1914 1657 Chemistry Sodium (134 - 147 mEq/L) 139 Potassium (3.4 - 5.0 mEq/L) 3.5 Chloride (100 - 108 mEq/L) 96 L Carbon Dioxide (21 - 33 mEq/l) 35 H Anion Gap (0 - 20) 11 BUN (7 - 18 mg/dL) 13 Creatinine (0.6 - 1.3 mg/dL) 1.0 Glomerular Filtr Rate (70 - 80) 53.6 L Glucose (70 - 110 mg/dL) 73 POC Glucose (70 - 110 MG/DL) 95 100 267 H 286 H Calcium (8.0 - 10.5 mg/dL) 9.0 Magnesium (1.80 - 2.40 mg/dL) 1.77 L Albumin (3.4 - 5.0 g/dL) 3.60 Prealbumin (16.0 - 40.0 mg/dL) 13.8 L Hematology WBC (4.5 - 11.0 x10 3/uL) 6.0 RBC (3.54 - 5.02 x10 6/uL) 2.89 L Hgb (11.0 - 15.0 g/dL) 9.8 L Hct (33.0 - 45.0 %) 32.7 L MCV (81.0 - 99.0 fL) 113.1 H MCH (27.0 - 33.0 pg) 33.9 H MCHC (33.0 - 37.0 g/dL) 30.0 L RDW (11.5 - 14.5 %) 18.9 H Plt Count (150 - 400 x10 3/uL) 155 MPV (7.0 - 9.0 fL) 11.6 H Neut % (Auto) (56.0 - 77.0 %) 82.8 H Lymph % (Auto) (14.0 - 32.0 %) 5.5 L Barron % (Auto) (4.8 - 9.0 %) 8.5 Eos % (Auto) (0.3 - 3.7 %) 2.5 Baso % (Auto) (0.0 - 2.0 %) 0.5 Neut # (Auto) (2.0 - 7.6 x10 3/uL) 4.99 Lymph # (Auto) (1.0 - 3.8 x10 3/uL) 0.33 L Barron # (Auto) (0.1 - 0.8 x10 3/uL) 0.51 Eos # (Auto) (0.0 - 0.2 x10 3/uL) 0.15 Baso # (Auto) (0.0 - 0.2 x10 3/uL) 0.03 Abs Immat Gran (auto) (0.00 - 0.03 0.01 x10 3/uL) Add Manual Diff NO Immature Gran % (0.0 - 2.0 %) 0.2 Nucleated RBC % (0 - 0 %) 0.0 Nucleated RBCs # (Man) (0.0 - 0.1 0.00 x10 3/uL) 01/11 1114 Chemistry POC Glucose (70 - 110 MG/DL) 140 H Radiology data: Recent Impressions: RADIOLOGY - XR CHEST 1 V 01/09 0934 Report Impression - Status: SIGNED Entered: 01/09/2022 1049 IMPRESSION: 1. Improved aeration bilateral. Residual interst itial and perihilar opacities compatible with edema. Inflammation in the differential. 2. Residual subsegmental atelectasis. 3. Residual small volume pleural effusions. Impression By: Catherine Carlisle M.D. Diagnosis, Assessment Plan Problem List/A P: 1. Critical illness myopathy 2. CAD (coronary artery disease) 3. Severe mitral regurgitation 4. Constrictive pericarditis 5. S/P CABG x 1 6. S/P MVR (mitral valve replacement) 7. Immunosuppressed status 8. RONA on CPAP 9. Chronic a-fib 10. Crohn disease 11. Morbid obesity 12. Respiratory failure with hypoxia 13. Acute blood loss anemia 14. Generalized weakness 15. Impaired functional mobility, balance, gait , and endurance Free Text A P: Assessment: Critical illness myopathy Constrictive pericarditis Severe mitral regurgitation CAD 12/19: Status post CABG x1 (ROBERTS to LAD), ILAp, p ericardectomy 12/19: S/p MVR 01/06: Echo-EF 55-59%, normally functioning MV b ioprosthesis Chronic AF, s/p PPM/ablation-rate controlled-pac ed Volume overload-BLE edema History of lymphedema Generalized weakness Deconditioning Acute blood loss anemia Hypertension Morbid obesity HLD Crohn's disease Smoker Hypoxic respiratory failure Hypokalemia/hypomagnesemia secondary to diuretic s MARCELLO resolved Significant impaired ADLs, mobility, gait, marian ce and endurance Plan: -Comprehensive inpatient rehabilitation with physical, occupational and speech therapy 3 hours a day for 5 to 6 days per week-2 06/19 rehabilitation physician supervision-05/10 rehabilitat ion nursing care-Case management for safe discharge planning-Rehab MD to monitor comorbidities and f unctional progress. -Decubitus prevention-protective hydrating lotio n-turn every 2 hours-offload -Bowel program-MiraLAX and Senokot -Nutrition, monitor the michael ent's p.o. intake, check albumin 3.5 and prealbumin, dietary consult, protein supplements. -Strict fall and safety precaution -DVT prophylaxis-SCDs/antiembolism stockings -GI prophylaxis-Protonix -Glycemic control-continue insulin-blood sugars good-as per medicine -FXC-tjeubprm-tpcurpkcgz following -Respiratory insufficiency-wean O2-postop pulmon shruthi protocol, encourage I-S, deep cough and breathing exercises, slowly impro ving -CAD s/p CABG, MVR, and ILAA-on DAPT post-op car e per CTS -Acute/chr AF s/p PPM/ablation. Rate controlled, paced rhythm-had ILAA during bypass, no need for AC-as per cardiology -Volume equdxdhf-qemwxouh-re diuretics, strict I 's and O's Daily -HTN. BP stable-on metoprolol -HLD-On statins. -Crohn's disease. Per IM. -Early mobilization-OOB to chair -Work on bed mobility, transfer training , ADLs, pre-gait and gait exercises as tolerable. -Increase endurance and strength -Pain management -Consultants-cardiology, CVS, medicine, nephrolo gy -Labs reviewed-WBC normal, hemoglobin im proved 9.8 improved, platelets normal, potassium 3.5, creatinine 1.0, magnesium 1.77, BNP 232, 180 -replete potassium and magnesium as needed 01/09: SOB-chest x-ray-impro laury aeration bilaterally. Residual interstitial and perihilar opacities. Subsegmental atelectasis. R esidual small volume pleural effusions. -Continue CPAP at night -Encourage I-S and ambulation -BLE edema-ANA PAULA hose and elevation, exercise, diu retics -Diuresis as per cardiology -Anemia-continue ferrous sulfate, B12, vitamin C monitor H H -Monitor telemetry -Nausea-Zofran -Continue current medications -Sternal incision intact and healing. Co ntinue sternal precautions for 6 weeks -Monitor complains of being tired and sleepy -Advance therapies as tolerated -Patient has impaired gait, ADLs, endura nce and balance with BLE edema and new sternal precautions. Patient will continue to be nefit from inpatient rehab to maximize mobility for safe return home. -Team conference Progress: GAIT: 50 feet x 2, 30 feet and 18 feet with RW with SBA with WC follow for safety. Pt requires frequent rest breaks and encouragement during this task. Pt return in room, left sitting in Recliner wit h B LE elevated. All needs in reach including call bel l. No signs of distress or discomfort. Episodes of the desaturation 84% with walking. PM R Please see team note. Plan and goals discussed with the patient. I agree with the teams finding ELOS: [01/21] KA-bhhj-mwhrt with daughter-HH versus outpatient cardiac rehabilitation DME-RW, wheelchair TT 35 min>50% with discussin g with patient about team conference, discharge plan , SOB, therapies, low potassium, rehab p juan of care, goals, needs, and medical issues, examination. MAR and EMR reviewed. All Questions answered. Orders: Procedure Date/time Status NEB TREATMENT SUBSQ 01/12 1004 Active OXYGEN PER HOUR 01/12 0010 Complete CPAP/BIPAP ADULT/CHILD 01/12 0010 Complete Consultants: cardiology, cardiovascular surgery, hospitalist, nephrology Plan discussed with: patient, nurse, interdisc c are team Rehab attestation: Face to face exam completed. Treatment plan disc ussed with patient. Meets continued stay criteria. Agree with interdiscipl inary treatment plan. at 1416 RPT #:[id number] END OF REPORT 2022-01-11 09:44:00-00:00 [facility] Hospitalist Progress Note REPORT#:[id number] REPORT STATUS: Signed DATE:01/11/22 TIME: 943 PATIENT: SAÚL GILES UNIT #: [id number] ROOM/BED: [place] [address] : 43 AGE: 76 SEX: F ATTEND: Shaun Landry MD ADM AUTHOR: Kat Carreon APRN * ALL edits or amendments must be made on the el [employer]/computer document * Subjective Chief complaint: BM yesterday Review of Systems Constitutional: Reports: fatigue. Denies: chills, fever. Respiratory: Denies: productive cough (sputum), SOB. Cardiovascular: Denies: chest pain, palpitations. GI: Denies: abdominal pain, constipation. : Denies: dysuria, hematuria. All systems rev neg: except as marked Objective General VS/I O: Vital Signs: Date Time Temp Pulse Resp B/P B/P Pulse O2 O2 F low FiO2 Mean Ox Delivery Rate 01/11 0842 98 Nasal 3 cannula 01/11 0641 36.5 74 18 124/76 91.8 100 Nasal cannula 01/11 0424 71 100 40 01/11 0102 71 99 40 01/10 2354 36.5 73 18 122/75 90.5 98 01/10 2204 76 99 40 01/10 2200 Nasal 3 cannula 01/10 1928 36.4 73 18 136/47 76.7 85 01/10 1600 36.4 76 18 134/81 98.3 92 Room air 01/10 1508 Nasal 3 cannula 01/10 1253 98 Nasal 3 cannula 24 hour I O ending at 0700: 01/11 0700 01/10 1900 Intake Total 240 420 Output Total 300 200 Balance -60 220 Intake, Oral 240 420 Number 1 Bowel Movements Number 0 Incontinent Voids Number Voids 4 Output, Urine 300 200 PATIENT WEIGHT: Weight (lb): 248 Weight (oz): 10.9 Weight (kg): 112.800 Medications: Active Meds + DC'd Last 24 Hrs Furosemide (LASIX) 40 MG BID 9A 5P PO Furosemide (LASIX) 40 MG Q12HR PO (DC) Lisinopril (ZESTRIL) 2.5 MG DAILY PO Ascorbic Acid (ASCORBIC ACID) 500 MG BID PO Bisacodyl (DULCOLAX) 10 MG DAILY PRN PRN RECTAL Potassium Chloride (POTASSIUM CHLORIDE 20MEQ TAB .ER) 40 MEQ DAILY PRN PRN PO Acetazolamide (DIAMOX) 250 MG DAILY PO Aspirin (ASPIRIN) 81 MG DAILY PO Clopidogrel Bisulfate (Plavix) 75 MG DAILY PO Cyanocobalamin (Vitamin B-12 500 mcg tab) 500 MC G DAILY PO Ferrous Sulfate (FERROUS SULFATE) 325 MG DAILY P O Furosemide (LASIX) 40 MG DAILY PO (DC) Insulin Glargine (Lantus/Semglee) 30 UNIT DAILY SUBQ Polyethylene Glycol (MIRALAX) 17 GM DAILY PO Sodium Chloride (SODIUM CHLORIDE) 10 ML BID IV Insulin Human Lispro (HUMALOG) 0 AC HS SUBQ Pantoprazole (PROTONIX) 40 MG DAILY@0600 PO Acetylcysteine (MUCOMYST FOR RT) 200 MG RTQ6H NE B Albuterol/Ipratropium (DUONEB) 3 ML RTQ6H NEB Glucagon (GLUCAGON) 1 MG ASDIR PRN IM Acetaminophen (TYLENOL) 650 MG Q4H PRN PRN PO Bisacodyl (DULCOLAX) 5 MG DAILY PRN PRN PO Dextrose/Water (DEXTROSE 10% IN WATER) 250 ML DIR PRN IV (CKD) Sodium Chloride (SODIUM CHLORIDE) 4 ML RTBID NEB Amiodarone HCl (CORDARONE) 200 MG Q12HR PO Atorvastatin Calcium (LIPITOR) 40 MG 2100 PO Docusate Sodium (COLACE) 100 MG BID PO Insulin Glargine (Lantus/Semglee) 20 UNIT BEDTIM E SUBQ Melatonin (Melatonin) 3 MG BEDTIME PO Metoprolol Tartrate (LOPRESSOR) 25 MG Q12HR PO Ondansetron HCl (ZOFRAN ODT) 4 MG TID PRN PRN PO Sennosides (Senna Lax 8.6 MG TABLET) 17.2 MG BED TIME PO Physical Exam General appearance: alert, awake, oriented Head/Eyes: atraumatic, normal conjunctiva/sclera , normal eyelids/periorb. Neck: full range of motion, non-tender Cardiovascular: normal heart sounds, regular rat e rhythm Respiratory: dyspneic, on oxygen Abdomen: non-tender, normal bowel sounds, soft, no distention Extremities: edema, moves all 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, 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, CNII-XII intact, normal speech, no motor deficits, no sensory deficits Skin: dry, intact Results Findings/Data: Laboratory Tests 01/11 01/11 01/11 01/10 01/10 0623 0530 0500 1930 1602 Chemistry Sodium (134 - 147 mEq/L) 142 Potassium (3.4 - 5.0 mEq/L) 3.3 L Chloride (100 - 108 mEq/L) 95 L Carbon Dioxide (21 - 33 mEq/l) > 40 H Anion Gap (0 - 20) 10 BUN (7 - 18 mg/dL) 24 H Creatinine (0.6 - 1.3 mg/dL) 1.0 Glomerular Filtr Rate (70 - 80) 53.6 L Glucose (70 - 110 mg/dL) 55 L POC Glucose (70 - 110 MG/DL) 71 60 L 194 H 179 H Calcium (8.0 - 10.5 mg/dL) 9.1 Magnesium (1.80 - 2.40 mg/dL) 1.80 01/10 1115 Chemistry POC Glucose (70 - 110 MG/DL) 137 H Diagnosis, Assessment Plan Consultants: cardiology, cardiovascular surgery, hospitalist, nephrology Free Text DxA P Notes Free text DxA P notes: general weakness CAD - post CABG CHF HTN DM HLD afib RONA morbid obesity CAD -- cardiology consult CV surgeon consult CABG --post procedure ASA/lipitor Echocardiogram showed EF 55 to 59% edema --lasix /zaroxolyn -- monitor renal function weakness --PT/OT as rehab afib -- rate control -- xarelto/amiodarone /metoprolol HTN-- metoprolol/norvasc DM-- on lantus -- sliding scale HLD-- on lipitor RONA--cpap as nigth DVTP -- xarelto 01/09-- she feel tire after PT -- complaint of sob at night --bipap at night -- continue lasix -- replace K 01/10 Continue bowel regimen, adjust as needed i f no results. Replace K. 01/11 +BM. Replace K+, discussed with RN to give PRN K on MAY. Electronically Signed by Kat Carreon APRN on at 0946 at 1258 RPT #:[id number] END OF REPORT 2022-01-11 06:34:00-00:00 [facility] Rehab Progress Note REPORT#:[id number] REPORT STATUS: Signed DATE:01/11/22 TIME: 0634 PATIENT: SAÚL GILES UNIT #: [id number] ROOM/BED: [place] [address] : 43 AGE: 76 SEX: F ATTEND: Shaun Landry MD ADM AUTHOR: Herberth Pantoja * ALL edits or amendments must be made on the [employer] document * Subjective Chief complaint: Rehab follow-up Slept better. No SOB at rest. NAD Reports BLE edema Denies GOLD/N/V/D/CP 14 systems reviewed and neg. except that above. Objective General VS: Vital Signs: Date Time Temp Pulse Resp B/P B/P Pulse O2 O2 F low FiO2 Mean Ox Delivery Rate 01/11 0424 71 100 40 01/11 0102 71 99 40 01/10 2354 97.7 73 18 122/75 90.5 98 01/10 2204 76 99 40 01/10 2200 Nasal 3 cannula 01/10 1928 97.5 73 18 136/47 76.7 85 01/10 1600 97.5 76 18 134/81 98.3 92 Room air 01/10 1508 Nasal 3 cannula 01/10 1253 98 Nasal 3 cannula 01/10 0640 97.5 75 18 112/67 81.8 93 Nasal cannula PATIENT WEIGHT: Weight (lb): 252 Weight (oz): 10.4 Weight (kg): 114.600 Medications: Laboratory Tests 01/11 01/10 01/10 01/10 01/10 0530 1930 1602 1115 0530 Chemistry POC Glucose (70 - 110 MG/DL) 60 L 194 H 179 H 1 37 H 92 01/10 01/10 01/09 01/09 01/09 0450 0450 1936 1546 1054 Chemistry Sodium (134 - 147 mEq/L) 142 Potassium (3.4 - 5.0 mEq/L) 3.0 L Chloride (100 - 108 mEq/L) 96 L Carbon Dioxide (21 - 33) 39 H > 40 H Anion Gap (0 - 20) 9 BUN (7 - 18 mg/dL) 24 H Creatinine (0.6 - 1.3 mg/dL) 1.1 Glomerular Filtr Rate (70 - 80) 48.0 L Glucose (70 - 110 mg/dL) 65 L POC Glucose (70 - 110 MG/DL) 204 H 122 H 172 H Calcium (8.0 - 10.5 mg/dL) 9.0 Ionized Calcium Gigi (1.09 - 1.30 1.15 MMOL/L) 01/09 01/09 01/09 01/08 01/08 0546 0433 0433 2025 155 Chemistry Potassium (3.4 - 5.0 mEq/L) 3.0 L POC Glucose (70 - 110 MG/DL) 94 167 H 153 H B-Natriuretic Peptide (0 - 100 PG/ML) 232.0 H 01/08 1054 Chemistry POC Glucose (70 - 110 MG/DL) 195 H Recent Impressions: RADIOLOGY - XR CHEST 1 V 01/09 0949 Report Impression - Status: SIGNED Entered: 01/09/2022 1049 IMPRESSION: 1. Improved aeration bilateral. Residual interst itial and perihilar opacities compatible with edema. Inflammation in the differential. 2. Residual subsegmental atelectasis. 3. Residual small volume pleural effusions. Impression By: Catherine Carlisle M.D. Active Meds + DC'd Last 24 Hrs Furosemide (LASIX) 40 MG BID 9A 5P PO Furosemide (LASIX) 40 MG Q12HR PO (DC) Lisinopril (ZESTRIL) 2.5 MG DAILY PO Ascorbic Acid (ASCORBIC ACID) 500 MG BID PO Potassium Chloride (POTASSIUM CHLORIDE 20MEQ TAB .ER) 40 MEQ BID MEALS PO (DC) Bisacodyl (DULCOLAX) 10 MG DAILY PRN PRN RECTAL Potassium Chloride (POTASSIUM CHLORIDE 20MEQ TAB .ER) 40 MEQ DAILY PRN PRN PO Acetazolamide (DIAMOX) 250 MG DAILY PO Aspirin (ASPIRIN) 81 MG DAILY PO Clopidogrel Bisulfate (Plavix) 75 MG DAILY PO Cyanocobalamin (Vitamin B-12 500 mcg tab) 500 MC G DAILY PO Ferrous Sulfate (FERROUS SULFATE) 325 MG DAILY P O Furosemide (LASIX) 40 MG DAILY PO (DC) Insulin Glargine (Lantus/Semglee) 30 UNIT DAILY SUBQ Polyethylene Glycol (MIRALAX) 17 GM DAILY PO Sodium Chloride (SODIUM CHLORIDE) 10 ML BID IV Insulin Human Lispro (HUMALOG) 0 AC HS SUBQ Pantoprazole (PROTONIX) 40 MG DAILY@0600 PO Acetylcysteine (MUCOMYST FOR RT) 200 MG RTQ6H NE B Albuterol/Ipratropium (DUONEB) 3 ML RTQ6H NEB Glucagon (GLUCAGON) 1 MG ASDIR PRN IM Acetaminophen (TYLENOL) 650 MG Q4H PRN PRN PO Bisacodyl (DULCOLAX) 5 MG DAILY PRN PRN PO Dextrose/Water (DEXTROSE 10% IN WATER) 250 ML DIR PRN IV (CKD) Sodium Chloride (SODIUM CHLORIDE) 4 ML RTBID NEB Amiodarone HCl (CORDARONE) 200 MG Q12HR PO Atorvastatin Calcium (LIPITOR) 40 MG 2100 PO Docusate Sodium (COLACE) 100 MG BID PO Insulin Glargine (Lantus/Semglee) 20 UNIT BEDTIM E SUBQ Melatonin (Melatonin) 3 MG BEDTIME PO Metoprolol Tartrate (LOPRESSOR) 25 MG Q12HR PO Ondansetron HCl (ZOFRAN ODT) 4 MG TID PRN PRN PO Sennosides (Senna Lax 8.6 MG TABLET) 17.2 MG BED TIME PO Lactulose (LACTULOSE) 20 GM BID PRN PO (DC) Functional Progress Functional progress: PT daily note comment: S: P t sitting in recliner, No reports of pain, agreeable to therapy. O: Pt seen for 90 mins treatment session. EDUVCATION: Fall prevention, safety awareness a nd energy conservation skills. Pt sit to to stand / Recliner <> WC with SBA/CG withy cues on proper turning. WC Mobility: 140 Feet with SBA using B LE to propel WC. Pt requires extra time and rest breaks during this task. GAIT: 50 feet x 2, 30 feet and 18 feet with RW with SBA with WC follow for safety. Pt requires frequent rest breaks and encouragement during this task. Pt return in room, left sitting in Recliner wit h B LE elevated. All needs in reach including call bel l. No signs of distress or discomfort. A: Pt making steady progress from PT services. Pt shows increase stability and decrease risk of falls during transfers and gait. Pt requires frequent rest breaks due to SOB. During gait training and sit to stand transfers, Pt had X 3 Desatting 82% 85% and 87% in 02 via NC for 2 liters. But easily goes back to WNL with 1-2 mi ns sitting rest breaks.Overall tolerated treatment well. P: Continue with current POC Physical Exam General appearance: alert, awake Psych: alert, normal affect, oriented x 3 HEENT: anicteric, mucosal membranes moist, pupil s reactive to light, sclera clear Neck: non-tender, supple, no JVD Cardiovascular: regular rate rhythm, S1/S2, no m urmur Respiratory: diminished breath sounds, on oxygen , clear bilaterally Abdomen: obese, bowel sounds present, non-disten ded, soft, non-tender Skin: dry, normal temperature, no rash, INCISION S: CDI, sutures x 2. 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 Results Findings/Data: Laboratory Tests: 01/11 01/11 01/10 01/10 01/10 0623 0530 1930 1602 1115 Chemistry POC Glucose (70 - 110 MG/DL) 71 60 L 194 H 179 H 137 H Diagnosis, Assessment Plan Problem List/A P: 1. Critical illness myopathy 2. CAD (coronary artery disease) 3. Severe mitral regurgitation 4. Constrictive pericarditis 5. S/P CABG x 1 6. S/P MVR (mitral valve replacement) 7. Immunosuppressed status 8. RONA on CPAP 9. Chronic a-fib 10. Crohn disease 11. Morbid obesity 12. Respiratory failure with hypoxia 13. Acute blood loss anemia 14. Generalized weakness 15. Impaired functional mobility, balance, gait , and endurance Free Text A P: Assessment: Critical illness myopathy Constrictive pericarditis Severe mitral regurgitation CAD 12/19: Status post CABG x1 (ROBERTS to LAD), ILAp, p ericardectomy 12/19: S/p MVR 01/06: Echo-EF 55-59%, normally functioning MV b ioprosthesis Chronic AF, s/p PPM/ablation-rate controlled-pac ed Volume overload-BLE edema History of lymphedema Generalized weakness Deconditioning Acute blood loss anemia Hypertension Morbid obesity HLD Crohn's disease Smoker Hypoxic respiratory failure Hypokalemia/hypomagnesemia secondary to diuretic s MARCELLO resolved Significant impaired ADLs, mobility, gait, marian ce and endurance Plan: -Comprehensive inpatient rehabilitation with physical, occupational and speech therapy 3 hours a day for 5 to 6 days per week-2 06/19 rehabilitation physician supervision-05/10 rehabilitat ion nursing care-Case management for safe discharge planning-Rehab MD to monitor comorbidities and f unctional progress. -Decubitus prevention-protective hydrating lotio n-turn every 2 hours-offload -Bowel program-MiraLAX and Senokot -Nutrition, monitor the michael ent's p.o. intake, check albumin 3.5 and prealbumin, dietary consult, protein supplements. -Strict fall and safety precaution -DVT prophylaxis-SCDs/antiembolism stockings -GI prophylaxis-Protonix -Glycemic control-continue insulin-blood sugars good-as per medicine -NCB-mjpgybbk-eyemjjdepw following -Respiratory insufficiency-wean O2-postop pulmon shruthi protocol, encourage I-S, deep cough and breathing exercises, slowly impro ving -CAD s/p CABG, MVR, and ILAA-on DAPT post-op car e per CTS -Acute/chr AF s/p PPM/ablation. Rate controlled, paced rhythm-had ILAA during bypass, no need for AC-as per cardiology -Volume ofqbpfek-lofnzeyi-jl diuretics, strict I 's and O's Daily -HTN. BP stable-on metoprolol -HLD-On statins. -Crohn's disease. Per IM. -Early mobilization-OOB to chair -Work on bed mobility, transfer training , ADLs, pre-gait and gait exercises as tolerable. -Increase endurance and strength -Pain management -Consultants-cardiology, CVS, medicine, nephrolo gy -Labs reviewed-WBC normal, h emoglobin improved 8.7, platelets normal, potassium 3.0, creatinine 1.1, magnesium 1.83, BNP 232-rep lete potassium 01/09: SOB-chest x-ray-impro laury aeration bilaterally. Residual interstitial and perihilar opacities. Subsegmental atelectasis. R esidual small volume pleural effusions. -Patient CPAP not working-RT to eval and try and fix -Encourage I-S and ambulation -BLE edema-ANA PAULA hose and elevation, exercise, diu retics -Diuresis as per cardiology -Anemia-continue ferrous sulfate, B12, vitamin C monitor H H -Monitor telemetry -Nausea-Zofran -Continue current medications -Sternal incision intact and healing. Co ntinue sternal precautions for 6 weeks -Advance therapies as tolerated -Patient has impaired gait, ADLs, endura nce and balance with BLE edema and new sternal precautions. Patient will continue to be nefit from inpatient rehab to maximize mobility for safe return home. PM R Please see team note. Plan and goals discussed with the patient. I agree with the teams finding ELOS: [12 days] YG-pqhs-mmatr with daughter-HH versus outpatient cardiac rehabilitation DME-pending TT 33 min>50% with discussin g with patient about SOB, therapies, low potassium, rehab plan of care, goals, needs, and me dical issues, examination. MAR and EMR reviewed. All Questions answered. Rehab attestation: Face to face exam completed. Treatment plan disc ussed with patient. Meets continued stay criteria. Agree with interdiscipl inary treatment plan. Electronically Signed by Herberth Pantoja on at 2000 RPT #:[id number] END OF REPORT 2022-01-10 13:40:00-00:00 [facility] Nephrology Progress Note REPORT#:[id number] REPORT STATUS: Signed DATE:01/10/22 TIME: 1340 PATIENT: SAÚL GILES UNIT #: [id number] ROOM/BED: [place] [address] : 43 AGE: 76 SEX: F ATTEND: Shaun Landry MD ADM AUTHOR: Suki Fuchs MD * ALL edits or amendments must be made on the [facility]/computer document * Subjective Chief complaint: CAD, S/P CABG HPI: This is a 76-year-old female who has past medica l history of hypertension, diabetes, coronary artery disease, atrial fibril lation who presented with worsening shortness of breath and on further wor k-up was 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 She was with normal kidney function prior to surgery and afte r her surgery she began to develop oliguria. Her procedure was done without any complications but after her surgery she did require pressor support for hypotension and she was intubated for respiratory acidosis and hypoxia a nd she was treated with vancomycin for infection treatment. She recovered kidney function and has been on diuretics for hypervolemia which has also imp roved significantly. 01/10 She was seen in rehab today and was doing well, eating well. Objective General VS/I O: Vital Signs: Date Time Temp Pulse Resp B/P B/P Pulse O2 O2 F low FiO2 Mean Ox Delivery Rate 01/10 2204 76 99 40 01/10 1928 36.4 73 18 136/47 76.7 85 01/10 1600 36.4 76 18 134/81 98.3 92 Room air 01/10 1508 Nasal 3 cannula 01/10 1253 98 Nasal 3 cannula 01/10 0640 36.4 75 18 112/67 81.8 93 Nasal cannula 01/10 0445 78 96 40 01/09 2356 36.0 82 18 117/80 0.0 96 24 hour I O ending at 0700: 01/10 0700 01/09 1900 Intake Total 120 420 Output Total Balance 120 420 Intake, Oral 120 420 Number 1 Bowel Movements Number 0 Incontinent Voids Number Voids 4 Patient 114.6 kg Weight Weight Bed scale Measurement Method PATIENT WEIGHT: Weight (lb): 252 Weight (oz): 10.4 Weight (kg): 114.600 Physical Exam General appearance: alert, awake, oriented Head/eyes: atraumatic, EOMI ENT: moist mucous membranes, normal nose Neck: no JVD, no lymphadenopathy Cardiovascular: normal heart sounds, regular rat e and rhythm Respiratory: aerating well, clear to auscultatio n Abdomen: non-tender, soft Genitourinary: no bladder distention, no flank p ain Extremities: pitting edema, no gangrene, no swel ling Diagnosis, Assessment Plan Free Text A P: This is a 76-year-old female known to have hyper tension, diabetes, atrial fibrillation, s/p permanent pacemaker and histor y of ablation presenting with shortness of breath and found to have multivesse l coronary artery disease therefore she had CABG on December 19 after which she has developed oliguria. Nephrology is following for: 1. Acute kidney injury: Most likely it i s prerenal (cardiorenal), she has been hypotensive postoperatively with require ment for pressor support and inotropic support. Resolved with stable hemodynamics 2. Hypervolemia:Improved, on low dose lasix. 3. Hypokalemia: Plan to replace nd monitor close ly. 4. Metabolic alkalosis secondary to diur etics. Plan to monitoe and give diamox if worsens. 01/09 1. Acute kidney injury: Most likely it i s prerenal (cardiorenal), she has been hypotensive postoperatively with require ment for pressor support and inotropic support. Resolved with stable hemodynamics 2. Hypervolemia:Improved, on low dose lasix. 3. Hypokalemia: Plan to replace and monitor clos faustina. 4. Metabolic alkalosis secondary to diuretics. P juan to monitor and continue diamox. 01/10 1. Acute kidney injury: Most likely it i s prerenal (cardiorenal), she has been hypotensive postoperatively with require ment for pressor support and inotropic support. Resolved with stable hemodynamics 2. Hypervolemia:Improved, on low dose la six.Dose increased to 40 Q12H today as she was looking volume overloaded. 3. Hypokalemia: Plan to replace and monitor clos faustina. 4. Metabolic alkalosis secondary to diuretics. P juan to monitor and continue diamox. Consultants: cardiology, cardiovascular surgery, hospitalist, nephrology Electronically Signed by Suki Fuchs MD on at 2350 RPT #:[id number] END OF REPORT 2022-01-10 11:54:00-00:00 [facility] Cardiology Progress Note REPORT#:[id number] REPORT STATUS: Signed DATE:01/10/22 TIME: 1154 PATIENT: SAÚL GILES UNIT #: [id number] ROOM/BED: [place] [address] : 43 AGE: 76 SEX: F ATTEND: Shaun Landry MD ADM AUTHOR: Palomo Trotter MD * ALL edits or amendments must be made on the [employer]/computer document * Subjective Chief complaint: None Objective General VS/I O: 24 hour I O ending at 0700: 01/10 0700 01/09 1900 Intake Total 120 420 Output Total Balance 120 420 Intake, Oral 120 420 Number 1 Bowel Movements Number 0 Incontinent Voids Number Voids 4 Patient 114.6 kg Weight Weight Bed scale Measurement Method Vital Signs: Date Time Temp Pulse Resp B/P B/P Pulse O2 O2 F low FiO2 Mean Ox Delivery Rate 01/10 0640 36.4 75 18 112/67 81.8 93 Nasal cannula 01/10 0445 78 96 40 01/096 36.0 82 18 117/80 0.0 96 01/09 1941 71 99 40 01/09 1941 99 BiPAP 40 01/10 1936 36.5 71 18 131/69 89.6 99 01/09 1900 Nasal 3 cannula 01/09 1545 36.3 70 18 116/73 87.4 99 Nasal cannula PATIENT WEIGHT: Weight (lb): 252 Weight (oz): 10.4 Weight (kg): 114.600 Medications: Active Meds + DC'd Last 24 Hrs Ascorbic Acid (ASCORBIC ACID) 500 MG BID PO Potassium Chloride (POTASSIUM CHLORIDE 20MEQ TAB .ER) 40 MEQ BID MEALS PO (DC) Furosemide (LASIX) 40 MG NOW ONE PO (DC) Bisacodyl (DULCOLAX) 10 MG DAILY PRN PRN RECTAL Potassium Chloride (POTASSIUM CHLORIDE 20MEQ TAB .ER) 40 MEQ DAILY PRN PRN PO Acetazolamide (DIAMOX) 250 MG DAILY PO Aspirin (ASPIRIN) 81 MG DAILY PO Clopidogrel Bisulfate (Plavix) 75 MG DAILY PO Cyanocobalamin (Vitamin B-12 500 mcg tab) 500 MC G DAILY PO Ferrous Sulfate (FERROUS SULFATE) 325 MG DAILY P O Furosemide (LASIX) 40 MG DAILY PO Insulin Glargine (Lantus/Semglee) 30 UNIT DAILY SUBQ Polyethylene Glycol (MIRALAX) 17 GM DAILY PO Sodium Chloride (SODIUM CHLORIDE) 10 ML BID IV Insulin Human Lispro (HUMALOG) 0 AC HS SUBQ Pantoprazole (PROTONIX) 40 MG DAILY@0600 PO Acetylcysteine (MUCOMYST FOR RT) 200 MG RTQ6H NE B Albuterol/Ipratropium (DUONEB) 3 ML RTQ6H NEB Glucagon (GLUCAGON) 1 MG ASDIR PRN IM Acetaminophen (TYLENOL) 650 MG Q4H PRN PRN PO Bisacodyl (DULCOLAX) 5 MG DAILY PRN PRN PO Dextrose/Water (DEXTROSE 10% IN WATER) 250 ML DIR PRN IV (CKD) Sodium Chloride (SODIUM CHLORIDE) 4 ML RTBID NEB Amiodarone HCl (CORDARONE) 200 MG Q12HR PO Atorvastatin Calcium (LIPITOR) 40 MG 2100 PO Docusate Sodium (COLACE) 100 MG BID PO Insulin Glargine (Lantus/Semglee) 20 UNIT BEDTIM E SUBQ Melatonin (Melatonin) 3 MG BEDTIME PO Metoprolol Tartrate (LOPRESSOR) 25 MG Q12HR PO Ondansetron HCl (ZOFRAN ODT) 4 MG TID PRN PRN PO Sennosides (Senna Lax 8.6 MG TABLET) 17.2 MG BED TIME PO Lactulose (LACTULOSE) 20 GM BID PRN PO (DC) Physical Exam General appearance: awake ENT: normal nose Neck: no JVD Cardiovascular: CV assessment: regular rate and rhythm Respiratory: decreased breath sounds, no distres s Abdomen: soft, non-tender, normal bowel sounds, no distention Genitourinary: no flank pain, no urinary cathete r Upper extremity: UE assessment: no edema Lower extremity: LE assessment: no edema Musculoskeletal: normal inspection 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, 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, normal speech Skin: poor skin turgor Psychiatry: normal affect, normal mood Diagnosis, Assessment Plan Free Text DxA P Notes Free Text DxA P Notes: Ms Giles is a 76 y/o female with PMHx of CAD, HL D, T2DM, RONA (CPAP at home), smoker, Crohn's disease, AF s/p ablation s/p PPM, and chronic lymphedema. She is recovering from CABG and MVR. She is transferred to [facility] for inpatient rehabilitation. Cardiolgy is consulted f or continuity of cardiac-related care. 1. CAD s/p CABG, MVR, and ILAA. On Plavix, aspirin, beta-delma, statin 2. Chronic AF s/p PPM/ablation. had ILAA during bypass no need for AC keep K >4 and Mag above 2 taper amiodarone prior to discharge K replaced today 3. Chronic Diastolic CHF - euvolemic on PO Lasix 4. Hypertension - normotensive continue metoprolol tartrate 25 mg BID 5. Hyperlipidemia Continue statins. 6. MARCELLO - resolved per Nephrology overall doing well in rehab continue supportive care discussed with nurse Electronically Signed by Palomo Trotter MD on 02/04 at 1316 RPT #:[id number] END OF REPORT 2022-01-10 09:23:00-00:00 [facility] ([facility] Hospitalist Progress Note REPORT#:[id number] REPORT STATUS: Signed DATE:01/10/22 TIME: 922 PATIENT: SAÚL GILES UNIT #: [id number] ROOM/BED: [place] [address] : 43 AGE: 76 SEX: F ATTEND: Shaun Landry MD ADM AUTHOR: Kat Carreon APRN * ALL edits or amendments must be made on the [employer]/computer document * Subjective Chief complaint: in therapy, reports constipation Review of Systems Constitutional: Reports: generalized weakness. Denies: chills, f atigue, fever. Respiratory: Denies: productive cough (sputum), SOB. Cardiovascular: Denies: chest pain, palpitations. GI: Reports: constipation. Denies: abdominal pain. : Denies: dysuria, frequency. All systems rev neg: except as marked Objective General VS/I O: Vital Signs: Date Time Temp Pulse Resp B/P B/P Pulse O2 O2 F low FiO2 Mean Ox Delivery Rate 01/10 0640 36.4 75 18 112/67 81.8 93 Nasal cannula 01/10 0445 78 96 40 01/09 2356 36.0 82 18 117/80 0.0 96 01/09 1941 71 99 40 01/09 1941 99 BiPAP 40 01/09 1936 36.5 71 18 131/69 89.6 99 01/09 1900 Nasal 3 cannula 01/09 1545 36.3 70 18 116/73 87.4 99 Nasal cannula 01/09 1032 Nasal 3 cannula 24 hour I O ending at 0700: 01/10 0700 01/09 1900 Intake Total 120 420 Output Total Balance 120 420 Intake, Oral 120 420 Number 1 Bowel Movements Number 0 Incontinent Voids Number Voids 4 Patient 114.6 kg Weight Weight Bed scale Measurement Method PATIENT WEIGHT: Weight (lb): 252 Weight (oz): 10.4 Weight (kg): 114.600 Medications: Active Meds + DC'd Last 24 Hrs Ascorbic Acid (ASCORBIC ACID) 500 MG BID PO Potassium Chloride (POTASSIUM CHLORIDE 20MEQ TAB .ER) 40 MEQ BID MEALS PO (DC) Furosemide (LASIX) 40 MG NOW ONE PO (DC) Bisacodyl (DULCOLAX) 10 MG DAILY PRN PRN RECTAL Potassium Chloride (POTASSIUM CHLORIDE 20MEQ TAB .ER) 40 MEQ DAILY PRN PRN PO Acetazolamide (DIAMOX) 250 MG DAILY PO Aspirin (ASPIRIN) 81 MG DAILY PO Clopidogrel Bisulfate (Plavix) 75 MG DAILY PO Cyanocobalamin (Vitamin B-12 500 mcg tab) 500 MC G DAILY PO Ferrous Sulfate (FERROUS SULFATE) 325 MG DAILY P O Furosemide (LASIX) 40 MG DAILY PO Insulin Glargine (Lantus/Semglee) 30 UNIT DAILY SUBQ Polyethylene Glycol (MIRALAX) 17 GM DAILY PO Sodium Chloride (SODIUM CHLORIDE) 10 ML BID IV Insulin Human Lispro (HUMALOG) 0 AC HS SUBQ Pantoprazole (PROTONIX) 40 MG DAILY@0600 PO Acetylcysteine (MUCOMYST FOR RT) 200 MG RTQ6H NE B Albuterol/Ipratropium (DUONEB) 3 ML RTQ6H NEB Glucagon (GLUCAGON) 1 MG ASDIR PRN IM Acetaminophen (TYLENOL) 650 MG Q4H PRN PRN PO Bisacodyl (DULCOLAX) 5 MG DAILY PRN PRN PO Dextrose/Water (DEXTROSE 10% IN WATER) 250 ML DIR PRN IV (CKD) Sodium Chloride (SODIUM CHLORIDE) 4 ML RTBID NEB Amiodarone HCl (CORDARONE) 200 MG Q12HR PO Atorvastatin Calcium (LIPITOR) 40 MG 2100 PO Docusate Sodium (COLACE) 100 MG BID PO Insulin Glargine (Lantus/Semglee) 20 UNIT BEDTIM E SUBQ Melatonin (Melatonin) 3 MG BEDTIME PO Metoprolol Tartrate (LOPRESSOR) 25 MG Q12HR PO Ondansetron HCl (ZOFRAN ODT) 4 MG TID PRN PRN PO Sennosides (Senna Lax 8.6 MG TABLET) 17.2 MG BED TIME PO Lactulose (LACTULOSE) 20 GM BID PRN PO (DC) Physical Exam General appearance: alert, awake, oriented Head/Eyes: atraumatic, normal conjunctiva/sclera , normal eyelids/periorb. Neck: full range of motion, non-tender Cardiovascular: normal heart sounds, regular rat e rhythm Respiratory: dyspneic, on oxygen Abdomen: non-tender, normal bowel sounds, soft, no distention Extremities: edema, moves all 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, 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, CNII-XII intact, normal speech, no motor deficits, no sensory deficits Skin: dry, intact Results Findings/Data: Laboratory Tests 01/10 01/10 01/09 01/09 01/09 0530 0450 1936 1546 1054 Chemistry Sodium (134 - 147 mEq/L) 142 Potassium (3.4 - 5.0 mEq/L) 3.0 L Chloride (100 - 108 mEq/L) 96 L Carbon Dioxide (21 - 33 mEq/l) > 40 H Anion Gap (0 - 20) 9 BUN (7 - 18 mg/dL) 24 H Creatinine (0.6 - 1.3 mg/dL) 1.1 Glomerular Filtr Rate (70 - 80) 48.0 L Glucose (70 - 110 mg/dL) 65 L POC Glucose (70 - 110 MG/DL) 92 204 H 122 H 172 H Calcium (8.0 - 10.5 mg/dL) 9.0 Ionized Calcium Gigi (1.09 - 1.30 1.15 MMOL/L) Radiology data: Recent Impressions: RADIOLOGY - XR CHEST 1 V 01/09 0903 Report Impression - Status: SIGNED Entered: 01/09/2022 1049 IMPRESSION: 1. Improved aeration bilateral. Residual interst itial and perihilar opacities compatible with edema. Inflammation in the differential. 2. Residual subsegmental atelectasis. 3. Residual small volume pleural effusions. Impression By: Catherine Carlisle M.D. Diagnosis, Assessment Plan Consultants: cardiology, cardiovascular surgery, hospitalist, nephrology Free Text DxA P Notes Free text DxA P notes: general weakness CAD - post CABG CHF HTN DM HLD afib RONA morbid obesity CAD -- cardiology consult CV surgeon consult CABG --post procedure ASA/lipitor Echocardiogram showed EF 55 to 59% edema --lasix /zaroxolyn -- monitor renal function weakness --PT/OT as rehab afib -- rate control -- xarelto/amiodarone /metoprolol HTN-- metoprolol/norvasc DM-- on lantus -- sliding scale HLD-- on lipitor RONA--cpap as nigth DVTP -- xarelto 01/09-- she feel tire after PT -- complaint of sob at night --bipap at night -- continue lasix -- replace K 01/10 Continue bowel regimen, adjust as needed i f no results. Replace K. Electronically Signed by Kat Carreon APRN on at 1204 at 1257 RPT #:[id number] END OF REPORT 2022-01-10 06:39:00-00:00 [facility] RE[facility]#:[id number] REPORT STATUS: Signed DATE:01/10/22 TIME: 0639 PATIENT: SAÚL GILES UNIT #: [id number] ROOM/BED: [place] [address] : 43 AGE: 76 SEX: F ATTEND: Shaun Landry MD ADM AUTHOR: Herberth Pantoja * ALL edits or amendments must be made on the [employer]/computer document * Subjective Chief complaint: Rehab follow-up Slept better. No SOB at rest. NAD Edema BLE, teds Denies GOLD/N/V/D/CP 14 systems reviewed and neg. except that above. Objective General VS: Vital Signs: Date Time Temp Pulse Resp B/P B/P Pulse O2 O2 F low FiO2 Mean Ox Delivery Rate 01/10 0445 78 96 40 01/096 96.8 82 18 117/80 0.0 96 01/09 194 71 99 40 01/09 194 99 BiPAP 40 01/09 1936 97.7 71 18 131/69 89.6 99 01/09 1900 Nasal 3 cannula 01/09 1545 97.3 70 18 116/73 87.4 99 Nasal cannula 01/09 1032 Nasal 3 cannula 01/09 0848 99 Nasal 3 cannula 01/09 0648 97.5 72 18 138/76 96.8 100 Nasal cannula PATIENT WEIGHT: Weight (lb): 253 Weight (oz): 12.03 Weight (kg): 115.100 Medications: Active Meds + DC'd Last 24 Hrs Ascorbic Acid (ASCORBIC ACID) 500 MG BID PO Potassium Chloride (POTASSIUM CHLORIDE 20MEQ TAB .ER) 40 MEQ BID MEALS PO Furosemide (LASIX) 40 MG NOW ONE PO (DC) Bisacodyl (DULCOLAX) 10 MG DAILY PRN PRN RECTAL Potassium Chloride (POTASSIUM CHLORIDE 20MEQ TAB .ER) 40 MEQ DAILY PRN PRN PO Acetazolamide (DIAMOX) 250 MG DAILY PO Aspirin (ASPIRIN) 81 MG DAILY PO Clopidogrel Bisulfate (Plavix) 75 MG DAILY PO Cyanocobalamin (Vitamin B-12 500 mcg tab) 500 MC G DAILY PO Ferrous Sulfate (FERROUS SULFATE) 325 MG DAILY P O Furosemide (LASIX) 40 MG DAILY PO Insulin Glargine (Lantus/Semglee) 30 UNIT DAILY SUBQ Polyethylene Glycol (MIRALAX) 17 GM DAILY PO Sodium Chloride (SODIUM CHLORIDE) 10 ML BID IV Insulin Human Lispro (HUMALOG) 0 AC HS SUBQ Pantoprazole (PROTONIX) 40 MG DAILY@0600 PO Acetylcysteine (MUCOMYST FOR RT) 200 MG RTQ6H NE B Albuterol/Ipratropium (DUONEB) 3 ML RTQ6H NEB Glucagon (GLUCAGON) 1 MG ASDIR PRN IM Acetaminophen (TYLENOL) 650 MG Q4H PRN PRN PO Bisacodyl (DULCOLAX) 5 MG DAILY PRN PRN PO Dextrose/Water (DEXTROSE 10% IN WATER) 250 ML DIR PRN IV (CKD) Sodium Chloride (SODIUM CHLORIDE) 4 ML RTBID NEB Amiodarone HCl (CORDARONE) 200 MG Q12HR PO Atorvastatin Calcium (LIPITOR) 40 MG 2100 PO Docusate Sodium (COLACE) 100 MG BID PO Insulin Glargine (Lantus/Semglee) 20 UNIT BEDTIM E SUBQ Melatonin (Melatonin) 3 MG BEDTIME PO Metoprolol Tartrate (LOPRESSOR) 25 MG Q12HR PO Ondansetron HCl (ZOFRAN ODT) 4 MG TID PRN PRN PO Sennosides (Senna Lax 8.6 MG TABLET) 17.2 MG BED TIME PO Lactulose (LACTULOSE) 20 GM BID PRN PO Functional Progress Functional progress: PT daily note comment: S: Pt REPORTS SHE DIDNT SLEEP WELL, CPAP " WASNT WORKING WELL" FEELS TIRED. O: Pt SEEN FOR 90 MIN OF PT. TRANSFERS SIT TO STAND TO W/C W/ CGA. W/C MOBILITY X 40' W/ SPV, ENCOURAGEMEN T. SPO2 94% ON 2L. SIT<->STAND X 5 REPS FROM W/C W/ CGA TO MIN A AND CUES FOR STERANL PRECAUTIONS. GAIT W/ RW AND SB A X 20', 35', 40', 35', 52'. SIT<->STAND 2X5 REPS FROM MAT W/ O UE USE. THER EX TO B LE'S ALL PLANES 2X20 REPS IN SITTING. TOILET TRANSFERS W/ CGA, TOILETS W/ MOD A AND NEEDS A LOT OF ENCOURAGEMENT TO ATTEMPT HYGINE/DRESSING ON OWN . A: Pt W/ MORE COUGHING AND EDEMA TODAY, RN JOHNNY Schmitt. REFUSED COMPRESSION GARMENTS. Physical Exam General appearance: alert, awake Psych: alert, normal affect, oriented x 3 HEENT: anicteric, mucosal membranes moist, pupil s reactive to light, sclera clear Neck: non-tender, supple, no JVD Cardiovascular: regular rate rhythm, S1/S2, no m urmur Respiratory: diminished breath sounds, on oxygen , clear bilaterally Abdomen: obese, bowel sounds present, non-disten ded, soft, non-tender Skin: dry, normal temperature, no rash, INCISION S: CDI, sutures x 2. 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 Results Findings/Data: Laboratory Tests 01/10 01/09 01/09 01/09 01/09 0530 1936 1546 1054 0546 Chemistry POC Glucose (70 - 110 MG/DL) 92 204 H 122 H 172 H 94 01/09 01/09 01/08 01/08 01/08 0433 0433 2026 1556 1054 Chemistry Potassium (3.4 - 5.0 mEq/L) 3.0 L POC Glucose (70 - 110 MG/DL) 167 H 153 H 195 H B-Natriuretic Peptide (0 - 100 PG/ML) 232.0 H 01/08 01/08 01/08 01/07 0524 0510 0510 1942 Chemistry Sodium (134 - 147 mEq/L) 142 Potassium (3.4 - 5.0 mEq/L) 3.0 L Chloride (100 - 108 mEq/L) 98 L Carbon Dioxide (21 - 33 mEq/l) 36 H Anion Gap (0 - 20) 11 BUN (7 - 18 mg/dL) 23 H Creatinine (0.6 - 1.3 mg/dL) 1.1 Glomerular Filtr Rate (70 - 80) 48.0 L Glucose (70 - 110 mg/dL) 106 POC Glucose (70 - 110 MG/DL) 117 H 168 H Hemoglobin A1c (4.8 - 6.0 %A1C) 5.8 Calcium (8.0 - 10.5 mg/dL) 9.4 Phosphorus (2.5 - 4.9 MG/DL) 2.7 Magnesium (1.80 - 2.40 mg/dL) 1.83 Albumin (3.4 - 5.0 g/dL) 3.50 Laboratory Tests 01/08 0510 Hematology WBC (4.5 - 11.0 x10 3/uL) 5.6 RBC (3.54 - 5.02 x10 6/uL) 2.55 L Hgb (11.0 - 15.0 g/dL) 8.7 L Hct (33.0 - 45.0 %) 28.4 L MCV (81.0 - 99.0 fL) 111.4 H MCH (27.0 - 33.0 pg) 34.1 H MCHC (33.0 - 37.0 g/dL) 30.6 L RDW (11.5 - 14.5 %) 19.1 H Plt Count (150 - 400 x10 3/uL) 221 MPV (7.0 - 9.0 fL) 11.0 H Neut % (Auto) (56.0 - 77.0 %) 76.3 Lymph % (Auto) (14.0 - 32.0 %) 8.3 L Barron % (Auto) (4.8 - 9.0 %) 11.5 H Eos % (Auto) (0.3 - 3.7 %) 2.3 Baso % (Auto) (0.0 - 2.0 %) 0.7 Neut # (Auto) (2.0 - 7.6 x10 3/uL) 4.24 Lymph # (Auto) (1.0 - 3.8 x10 3/uL) 0.46 L Barron # (Auto) (0.1 - 0.8 x10 3/uL) 0.64 Eos # (Auto) (0.0 - 0.2 x10 3/uL) 0.13 Baso # (Auto) (0.0 - 0.2 x10 3/uL) 0.04 Abs Immat Gran (auto) (0.00 - 0.03 x10 3/uL) 0. 05 H Add Manual Diff NO Immature Gran % (0.0 - 2.0 %) 0.9 Nucleated RBC % (0 - 0 %) 0.0 Nucleated RBCs # (Man) (0.0 - 0.1 x10 3/uL) 0.0 0 Microbiology Date/Time Procedure - Status Source Growth 01/08 0510 MRSA DNA Surveillance Screen - COMP NASAL Recent Impressions: RADIOLOGY - XR CHEST 1 V 01/09 4337 Report Impression - Status: SIGNED Entered: 01/09/2022 1049 IMPRESSION: 1. Improved aeration bilateral. Residual interst itial and perihilar opacities compatible with edema. Inflammation in the differential. 2. Residual subsegmental atelectasis. 3. Residual small volume pleural effusions. Impression By: Catherine Carlisle M.D. Diagnosis, Assessment Plan Problem List/A P: 1. Critical illness myopathy 2. CAD (coronary artery disease) 3. Severe mitral regurgitation 4. Constrictive pericarditis 5. S/P CABG x 1 6. S/P MVR (mitral valve replacement) 7. Immunosuppressed status 8. RONA on CPAP 9. Chronic a-fib 10. Crohn disease 11. Morbid obesity 12. Respiratory failure with hypoxia 13. Acute blood loss anemia 14. Generalized weakness 15. Impaired functional mobility, balance, gait , and endurance Free Text A P: Assessment: Critical illness myopathy Constrictive pericarditis Severe mitral regurgitation CAD 12/19: Status post CABG x1 (ROBERTS to LAD), ILAp, p ericardectomy 12/19: S/p MVR 01/06: Echo-EF 55-59%, normally functioning MV b ioprosthesis Chronic AF, s/p PPM/ablation-rate controlled-pac ed Volume overload-BLE edema History of lymphedema Generalized weakness Deconditioning Acute blood loss anemia Hypertension Morbid obesity HLD Crohn's disease Smoker Hypoxic respiratory failure Hypokalemia/hypomagnesemia secondary to diuretic s MARCELLO resolved Significant impaired ADLs, mobility, gait, marian ce and endurance Plan: -Comprehensive inpatient rehabilitation with physical, occupational and speech therapy 3 hours a day for 5 to 6 days per week-2 06/19 rehabilitation physician supervision-05/10 rehabilitat ion nursing care-Case management for safe discharge planning-Rehab MD to monitor comorbidities and f unctional progress. -Decubitus prevention-protective hydrating lotio n-turn every 2 hours-offload -Bowel program-MiraLAX and Senokot -Nutrition, monitor the michael ent's p.o. intake, check albumin 3.5 and prealbumin, dietary consult, protein supplements. -Strict fall and safety precaution -DVT prophylaxis-SCDs/antiembolism stockings -GI prophylaxis-Protonix -Glycemic control-continue insulin-blood sugars good-as per medicine -UUD-gkgugfww-cjkmlidhty following -Respiratory insufficiency-wean O2-postop pulmon shruthi protocol, encourage I-S, deep cough and breathing exercises, slowly impro ving -CAD s/p CABG, MVR, and ILAA-on DAPT post-op car e per CTS -Acute/chr AF s/p PPM/ablation. Rate controlled, paced rhythm-had ILAA during bypass, no need for AC-as per cardiology -Volume bvicszgj-okininxx-ea diuretics, strict I 's and O's Daily -HTN. BP stable-on metoprolol -HLD-On statins. -Crohn's disease. Per IM. -Early mobilization-OOB to chair -Work on bed mobility, transfer training , ADLs, pre-gait and gait exercises as tolerable. -Increase endurance and strength -Pain management -Consultants-cardiology, CVS, medicine, nephrolo gy -Labs reviewed-WBC normal, h emoglobin improved 8.7, platelets normal, potassium 3.0, creatinine 1.1, magnesium 1.83, BNP 232-rep lete potassium 01/09: SOB-chest x-ray-impro laury aeration bilaterally. Residual interstitial and perihilar opacities. Subsegmental atelectasis. R esidual small volume pleural effusions. -Patient CPAP not working-RT to eval and try and fix -Encourage I-S and ambulation -BLE edema-ANA PAULA hose and elevation, exercise, diu retics -Diuresis as per cardiology -Anemia-continue ferrous sulfate, B12, vitamin C monitor H H -Monitor telemetry-DC if okay with cardiology -Nausea-Zofran -Continue current medications -Sternal incision intact and healing. Co ntinue sternal precautions for 6 weeks -Advance therapies as tolerable -Patient has impaired gait, ADLs, endura nce and balance with BLE edema and new sternal precautions. Patient will continue to be nefit from inpatient rehab to maximize mobility for safe return home. PM R Please see team note. Plan and goals discussed with the patient. I agree with the teams finding ELOS: [12 days] UZ-oinw-mnnmu with daughter-HH versus outpatient cardiac rehabilitation DME-pending TT 34 min>50% with discussin g with patient about SOB, therapies, low potassium, rehab plan of care, goals, e xpectations, needs, and medical issues, examination. MAR and EMR reviewed. All Questions answered. Rehab attestation: Face to face exam completed. Treatment plan disc ussed with patient. Meets continued stay criteria. Agree with interdiscipl inary treatment plan. Electronically Signed by Herberth Pantoja on at 1137 RPT #:[id number] END OF REPORT 2022-01-09 12:55:00-00:00 [facility] ([facility] Nephrology Progress Note REPORT#:[id number] REPORT STATUS: Signed DATE:01/09/22 TIME: 1255 PATIENT: SAÚL GILES UNIT #: [id number] ROOM/BED: [place] [address] : 43 AGE: 76 SEX: F ATTEND: Shaun Landry MD ADM AUTHOR: Suki Fuchs MD * ALL edits or amendments must be made on the [employer]/computer document * Subjective Chief complaint: CAD, S/P CABG HPI: This is a 76-year-old female who has past medica l history of hypertension, diabetes, coronary artery disease, atrial fibril lation who presented with worsening shortness of breath and on further wor k-up was 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 She was with normal kidney function prior to surgery and afte r her surgery she began to develop oliguria. Her procedure was done without any complications but after her surgery she did require pressor support for hypotension and she was intubated for respiratory acidosis and hypoxia a nd she was treated with vancomycin for infection treatment. She recovered kidney function and has been on diuretics for hypervolemia which has also imp roved significantly. 01/09 She was seen in rehab today and was doing well, eating well. Objective General VS/I O: Vital Signs: Date Time Temp Pulse Resp B/P B/P Pulse O2 O2 F low FiO2 Mean Ox Delivery Rate 01/09 1941 71 99 40 01/09 1941 99 BiPAP 40 01/09 193 36.5 71 18 131/69 89.6 99 01/09 1545 36.3 70 18 116/73 87.4 99 Nasal cannula 01/09 1032 Nasal 3 cannula 01/09 0848 99 Nasal 3 cannula 01/09 0648 36.4 72 18 138/76 96.8 100 Nasal cannula 01/09 0311 71 98 40 01/09 0029 71 18 135/81 98.9 97 BiPAP mask 24 hour I O ending at 0700: 01/09 0700 01/08 1900 Intake Total 100 360 Output Total Balance 100 360 Intake, Oral 100 360 Number 0 Incontinent Voids Number Voids 7 Patient 115.1 kg Weight Weight Bed scale Measurement Method PATIENT WEIGHT: Weight (lb): 253 Weight (oz): 12.03 Weight (kg): 115.100 Physical Exam General appearance: alert, awake, oriented Head/eyes: atraumatic, EOMI ENT: moist mucous membranes, normal nose Neck: no JVD, no lymphadenopathy Cardiovascular: normal heart sounds, regular rat e and rhythm Respiratory: aerating well, clear to auscultatio n Abdomen: non-tender, soft Genitourinary: no bladder distention, no flank p ain Extremities: pitting edema, no gangrene, no swel ling Diagnosis, Assessment Plan Free Text A P: This is a 76-year-old female known to have hyper tension, diabetes, atrial fibrillation, s/p permanent pacemaker and histor y of ablation presenting with shortness of breath and found to have multivesse l coronary artery disease therefore she had CABG on December 19 after which she has developed oliguria. Nephrology is following for: 1. Acute kidney injury: Most likely it i s prerenal (cardiorenal), she has been hypotensive postoperatively with require ment for pressor support and inotropic support. Resolved with stable hemodynamics 2. Hypervolemia:Improved, on low dose lasix. 3. Hypokalemia: Plan to replace nd monitor close ly. 4. Metabolic alkalosis secondary to diur etics. Plan to monitoe and give diamox if worsens. 01/09 1. Acute kidney injury: Most likely it i s prerenal (cardiorenal), she has been hypotensive postoperatively with require ment for pressor support and inotropic support. Resolved with stable hemodynamics 2. Hypervolemia:Improved, on low dose lasix. 3. Hypokalemia: Plan to replace and monitor clos faustina. 4. Metabolic alkalosis secondary to diuretics. P juan to monitor and continue diamox. Consultants: cardiology, cardiovascular surgery, hospitalist, nephrology Electronically Signed by Suki Fuchs MD on at 2155 RPT #:[id number] END OF REPORT 2022-01-09 12:24:00-00:00 [facility] Cardiology Progress Note REPORT#:[id number] REPORT STATUS: Signed DATE:01/09/22 TIME: 1224 PATIENT: SAÚL GILES UNIT #: [id number] ROOM/BED: [place] [address] : 43 AGE: 76 SEX: F ATTEND: Shaun Landry MD ADM AUTHOR: Jillian Lane NP * ALL edits or amendments must be made on the [facility]/computer document * Subjective Chief complaint: None Objective General VS/I O: Laboratory Tests 01/09/22 0433: [Embedded Image Not Available] 01/08/22 0510: [Embedded Image Not Available] Current Medications Sig/Fabby Start time Last Medication Dose Route Stop Time Status Admin Ascorbic Acid 500 MG BID 01/09 2100 AC PO 02/08 2059 Potassium Chloride 40 MEQ BID MEALS 01/09 1700 AC PO 01/10 0801 Bisacodyl 10 MG DAILY PRN PRN 01/09 1115 AC RECTAL 02/08 1114 Potassium Chloride 40 MEQ DAILY PRN PRN 01/08 1 100 AC PO 02/07 1059 Acetazolamide 250 MG DAILY 01/08 0900 AC 01/09 PO 01/15 0859 0745 Aspirin 81 MG DAILY 01/08 09 AC 01/09 PO 02/07 0859 0745 Clopidogrel Bisulfate 75 MG DAILY 01/08 09 AC 01/09 PO 02/07 0859 0745 Cyanocobalamin 500 MCG DAILY 01/08 0900 AC 12/14 8 PO 02/07 0859 0746 Ferrous Sulfate 325 MG DAILY 01/08 09 AC 12/14 8 PO 02/07 0859 0746 Furosemide 40 MG DAILY 01/08 09 AC 01/09 PO 02/07 0859 0745 Insulin Glargine 30 UNIT DAILY 01/08 09 AC SUBQ 02/07 0859 0745 Polyethylene Glycol 17 GM DAILY 01/08 09 AC 1 PO 01/17 0901 0751 Sodium Chloride 10 ML BID 01/08 09 AC 01/09 IV 02/07 0859 0746 Insulin Human Lispro 0 AC HS 01/08 0730 AC 12/14 8 SUBQ 02/07 0729 1145 Pantoprazole 40 MG DAILY@0600 01/08 0600 AC PO 02/07 0559 0508 Acetylcysteine 200 MG RTQ6H 01/08 0300 AC 01/09 NEB 02/07 0259 0849 Albuterol/Ipratropium 3 ML RTQ6H 01/08 0300 AC 01/09 NEB 02/07 0259 0849 Glucagon 1 MG ASDIR PRN 01/07 2300 AC IM 02/06 2259 Acetaminophen 650 MG Q4H PRN PRN 01/070 AC 01/09 PO 02/06 215 1255 Bisacodyl 5 MG DAILY PRN PRN 01/07 2200 AC PO 02/06 215 Dextrose/Water 250 ML ASDIR PRN 01/07 220 CKD IV 02/06 215 Sodium Chloride 4 ML RTBID 01/07 2200 AC NEB 02/06 215 Amiodarone HCl 200 MG Q12HR 01/07 2100 AC 01/09 PO 02/06 2059 0745 Atorvastatin Calcium 40 MG 2100 01/07 2100 AC 1 PO 02/06 2059 204 Docusate Sodium 100 MG BID 01/07 2100 AC 01/09 PO 02/06 2059 0745 Insulin Glargine 20 UNIT BEDTIME 102099 AC 01/08 SUBQ 02/06 Melatonin 3 MG BEDTIME 01/07 2100 AC 01/08 PO 02/06 Metoprolol Tartrate 25 MG Q12HR 01/07 2100 AC 1 PO 02/06 2059 0746 Ondansetron HCl 4 MG TID PRN PRN 01/07 2100 AC 01/09 PO 02/06 2059 0823 Sennosides 17.2 MG BEDTIME 01/07 2100 AC PO 02/06 2059 Lactulose 20 GM BID PRN 01/07 184 AC PO 01/10 0901 24 hour I O ending at 0700: 01/09 0700 01/08 1900 Intake Total 100 360 Output Total Balance 100 360 Intake, Oral 100 360 Number 0 Incontinent Voids Number Voids 7 Patient 115.1 kg Weight Weight Bed scale Measurement Method Vital Signs: Date Time Temp Pulse Resp B/P B/P Pulse O2 O2 F low FiO2 Mean Ox Delivery Rate 01/09 1032 Nasal 3 cannula 01/09 0848 99 Nasal 3 cannula 01/09 0648 36.4 72 18 138/76 96.8 100 Nasal cannula 01/09 0311 71 98 40 01/09 0029 71 18 135/81 98.9 97 BiPAP mask 01/08 1935 71 18 137/75 95.9 96 BiPAP mask 01/08 1900 Nasal 3 cannula 01/08 1620 98 Nasal 3 cannula 01/08 1556 36.6 70 16 110/47 68.1 98 PATIENT WEIGHT: Weight (lb): 253 Weight (oz): 12.03 Weight (kg): 115.100 Physical Exam General appearance: alert, awake, oriented, no a cute distress, pleasant ENT: normal nose Neck: no JVD Cardiovascular: CV assessment: regular rate and rhythm Respiratory: decreased breath sounds, no distres s Abdomen: soft, non-tender, normal bowel sounds, no distention Genitourinary: no flank pain, no urinary cathete r Upper extremity: UE assessment: no edema Lower extremity: LE assessment: no edema Musculoskeletal: normal inspection 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, 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, normal speech Skin: poor skin turgor Psychiatry: normal affect, normal mood Results Radiology data: Recent Impressions: RADIOLOGY - XR CHEST 1 V 01/09 0949 Report Impression - Status: SIGNED Entered: 01/09/2022 1049 IMPRESSION: 1. Improved aeration bilateral. Residual interst itial and perihilar opacities compatible with edema. Inflammation in the differential. 2. Residual subsegmental atelectasis. 3. Residual small volume pleural effusions. Impression By: Catherine Carlisle M.D. Diagnosis, Assessment Plan Problem List/A P: 1. CAD (coronary artery disease) 2. Severe mitral regurgitation 3. Chronic a-fib 4. S/P CABG x 1 5. S/P MVR (mitral valve replacement) Free Text DxA P Notes Free Text DxA P Notes: Ms Giles is a 76 y/o female with PMHx of CAD, HL D, T2DM, RONA (CPAP at home), smoker, Crohn's disease, AF s/p ablation s/p PPM, and chronic lymphedema. She is recovering from CABG and MVR. She is transferred to [facility] for inpatient rehabilitation. Cardiolgy is consulted f or continuity of cardiac-related care. 1. CAD s/p CABG, MVR, and ILAA. On Plavix, aspirin, beta-delma, statin 2. Chronic AF s/p PPM/ablation. had ILAA during bypass no need for AC keep K >4 and Mag above 2 taper amiodarone prior to discharge K replaced today 3. Chronic Diastolic CHF - euvolemic on PO Lasix 4. Hypertension - normotensive continue metoprolol tartrate 25 mg BID 5. Hyperlipidemia Continue statins. 6. MARCELLO - resolved per Nephrology overall doing well in rehab continue supportive care Electronically Signed by Jillian Lane NP on 1 at 1311 Electronically Signed by Aruna Fortune MD on at 1549 [facility] #:[id number] END OF REPORT 2022-01-09 11:28:00-00:[address] [facility] ([facility] Hospitalist Progress Note REPORT#:[id number] REPORT STATUS: Signed DATE:01/09/22 TIME: 1128 PATIENT: SAÚL GILES UNIT #: [id number] ROOM/BED: [place] [address] : 43 AGE: 76 SEX: F ATTEND: Jesus Landry MD ADM AUTHOR: Meryl Rosa MD * ALL edits or amendments must be made on the [employer]/computer document * Subjective Chief complaint: she is tire after therapy . she feel sob at nigh t . Review of Systems Constitutional: Reports: fatigue, generalized weakness. Denies: fever, lethargy. Respiratory: Reports: DOUGLASS (dyspnea on exertion), SOB. Denies: wheezing. Cardiovascular: Reports: DOUGLASS (dyspnea on exertion), edema. Denie s: chest pain, orthopnea, palpitations. GI: Denies: abdominal pain, nausea, vomiting. Neuro: Denies: dizziness. Objective General VS/I O: Vital Signs: Date Time Temp Pulse Resp B/P B/P Pulse O2 O2 Flow FiO2 Mean Ox Delivery Rate 01/09 1032 Nasal 3 cannula 01/09 0848 99 Nasal 3 cannula 01/09 0648 36.4 72 18 138/76 96.8 100 Nasal cannula 01/09 0311 71 98 40 01/09 0029 71 18 135/81 98.9 97 BiPAP mask 01/08 1935 71 18 137/75 95.9 96 BiPAP mask 01/08 1900 Nasal 3 cannula 01/08 1620 98 Nasal 3 cannula 01/08 1556 36.6 70 16 110/47 68.1 98 24 hour I O ending at 0700: 01/09 0700 01/08 1900 Intake Total 100 360 Output Total Balance 100 360 Intake, Oral 100 360 Number 0 Incontinent Voids Number Voids 7 Patient 115.1 kg Weight Weight Bed scale Measurement Method PATIENT WEIGHT: Weight (lb): 253 Weight (oz): 12.03 Weight (kg): 115.100 Medications: Active Meds + DC'd Last 24 Hrs Ascorbic Acid (ASCORBIC ACID) 500 MG BID PO Potassium Chloride (POTASSIUM CHLORIDE 20MEQ TAB .ER) 40 MEQ BID MEALS PO Bisacodyl (DULCOLAX) 10 MG DAILY PRN PRN RECTAL Potassium Chloride (POTASSIUM CHLORIDE 20MEQ TAB .ER) 40 MEQ ONCE ONE PO (DC) Potassium Chloride (POTASSIUM CHLORIDE 20MEQ TAB .ER) 40 MEQ DAILY PRN PRN PO Acetazolamide (DIAMOX) 250 MG DAILY PO Aspirin (ASPIRIN) 81 MG DAILY PO Clopidogrel Bisulfate (Plavix) 75 MG DAILY PO Cyanocobalamin (Vitamin B-12 500 mcg tab) 500 MC G DAILY PO Ferrous Sulfate (FERROUS SULFATE) 325 MG DAILY P O Furosemide (LASIX) 40 MG DAILY PO Insulin Glargine (Lantus/Semglee) 30 UNIT DAILY SUBQ Metolazone (metOLazone) 5 MG DAILY PO (DC) Polyethylene Glycol (MIRALAX) 17 GM DAILY PO Sodium Chloride (SODIUM CHLORIDE) 10 ML BID IV Insulin Human Lispro (HUMALOG) 0 AC HS SUBQ Pantoprazole (PROTONIX) 40 MG DAILY@0600 PO Acetylcysteine (MUCOMYST FOR RT) 200 MG RTQ6H NE B Albuterol/Ipratropium (DUONEB) 3 ML RTQ6H NEB Glucagon (GLUCAGON) 1 MG ASDIR PRN IM Acetaminophen (TYLENOL) 650 MG Q4H PRN PRN PO Bisacodyl (DULCOLAX) 5 MG DAILY PRN PRN PO Dextrose/Water (DEXTROSE 10% IN WATER) 250 ML DIR PRN IV (CKD) Sodium Chloride (SODIUM CHLORIDE) 4 ML RTBID NEB Amiodarone HCl (CORDARONE) 200 MG Q12HR PO Atorvastatin Calcium (LIPITOR) 40 MG 2100 PO Docusate Sodium (COLACE) 100 MG BID PO Insulin Glargine (Lantus/Semglee) 20 UNIT BEDTIM E SUBQ Melatonin (Melatonin) 3 MG BEDTIME PO Metoprolol Tartrate (LOPRESSOR) 25 MG Q12HR PO Ondansetron HCl (ZOFRAN ODT) 4 MG TID PRN PRN PO Sennosides (Senna Lax 8.6 MG TABLET) 17.2 MG BED TIME PO Lactulose (LACTULOSE) 20 GM BID PRN PO Physical Exam General appearance: alert, awake, oriented, no a cute distress Head/Eyes: atraumatic, normal conjunctiva/sclera , normal eyelids/periorb. Neck: full range of motion, non-tender Cardiovascular: normal heart sounds, regular rat e rhythm Respiratory: dyspneic, on oxygen Abdomen: non-tender, normal bowel sounds, soft, no distention Extremities: edema, moves all 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, 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, CNII-XII intact, normal speech, no motor deficits, no sensory deficits Skin: dry, intact Results Findings/Data: Laboratory Tests 01/09/27 1054 0546 0433 0433 2025 Chemistry Potassium (3.4 - 5.0 mEq/L) 3.0 L POC Glucose (70 - 110 MG/DL) 172 H 94 167 H B-Natriuretic Peptide (0 - 100 PG/ML) 232.0 H 01/08 1556 Chemistry POC Glucose (70 - 110 MG/DL) 153 H Diagnosis, Assessment Plan Consultants: cardiology, cardiovascular surgery, hospitalist, nephrology Free Text DxA P Notes Free text DxA P notes: general weakness CAD - post CABG CHF HTN DM HLD afib RONA morbid obesity CAD -- cardiology consult CV surgeon consult CABG --post procedure ASA/lipitor Echocardiogram showed EF 55 to 59% edema --lasix /zaroxolyn -- monitor renal function weakness --PT/OT as rehab afib -- rate control -- xarelto/amiodarone /metoprolol HTN-- metoprolol/norvasc DM-- on lantus -- sliding scale HLD-- on lipitor RONA--cpap as nigth DVTP -- xarelto 01/09-- she feel tire after PT -- complaint of sob at night --bipap at night -- continue lasix -- replace K will follow the patient in rehab . thank for laith breen Electronically Signed by Meryl Rosa MD on 2 at 1134 RPT #:[id number] END OF REPORT 2022-01-09 07:36:00-00:00 HCACL [facility] Rehab Progress Note REPORT#:[id number] REPORT STATUS: Signed DATE:01/09/22 TIME: 735 PATIENT: SAÚL GILES UNIT #: [id number] ROOM/BED: [place] [address] : 43 AGE: 76 SEX: F ATTEND: Shaun Landry MD ADM AUTHOR: Jesus Landry MD * ALL edits or amendments must be made on the [facility]/computer document * Subjective Chief complaint: Rehab follow-up Patient had poor sleep due to shortness of breat h, some nausea this morning treated with Zofran Patient CPAP not working last night Out of bed and working with occupational therapy Patient on 3-4 L, sats 99% Edema BLE, teds Patient denies nausea, vomiting, fever, chills, chest pain Objective General VS: Vital Signs: Date Time Temp Pulse Resp B/P B/P Pulse O2 O2 F low FiO2 Mean Ox Delivery Rate 01/09 1032 Nasal 3 cannula 01/09 0848 99 Nasal 3 cannula 01/09 0648 97.5 72 18 138/76 96.8 100 Nasal cannula 01/09 0311 71 98 40 01/09 0029 71 18 135/81 98.9 97 BiPAP mask 01/08 1935 71 18 137/75 95.9 96 BiPAP mask 01/08 1900 Nasal 3 cannula 01/08 1620 98 Nasal 3 cannula 01/08 1556 97.9 70 16 110/47 68.1 98 01/08 1120 Nasal 3 cannula 01/08 1056 97.7 71 16 136/80 99.0 96 PATIENT WEIGHT: Weight (lb): 253 Weight (oz): 12.03 Weight (kg): 115.100 Medications: Active Meds + DC'd Last 24 Hrs Potassium Chloride (POTASSIUM CHLORIDE 20MEQ TAB .ER) 40 MEQ ONCE ONE PO (DC) Potassium Chloride (POTASSIUM CHLORIDE 20MEQ TAB .ER) 40 MEQ DAILY PRN PRN PO Acetazolamide (DIAMOX) 250 MG DAILY PO Aspirin (ASPIRIN) 81 MG DAILY PO Clopidogrel Bisulfate (Plavix) 75 MG DAILY PO Cyanocobalamin (Vitamin B-12 500 mcg tab) 500 MC G DAILY PO Ferrous Sulfate (FERROUS SULFATE) 325 MG DAILY P O Furosemide (LASIX) 40 MG DAILY PO Insulin Glargine (Lantus/Semglee) 30 UNIT DAILY SUBQ Metolazone (metOLazone) 5 MG DAILY PO (DC) Polyethylene Glycol (MIRALAX) 17 GM DAILY PO Sodium Chloride (SODIUM CHLORIDE) 10 ML BID IV Insulin Human Lispro (HUMALOG) 0 AC HS SUBQ Pantoprazole (PROTONIX) 40 MG DAILY@0600 PO Acetylcysteine (MUCOMYST FOR RT) 200 MG RTQ6H NE B Albuterol/Ipratropium (DUONEB) 3 ML RTQ6H NEB Glucagon (GLUCAGON) 1 MG ASDIR PRN IM Acetaminophen (TYLENOL) 650 MG Q4H PRN PRN PO Bisacodyl (DULCOLAX) 5 MG DAILY PRN PRN PO Dextrose/Water (DEXTROSE 10% IN WATER) 250 ML DIR PRN IV (CKD) Sodium Chloride (SODIUM CHLORIDE) 4 ML RTBID NEB Amiodarone HCl (CORDARONE) 200 MG Q12HR PO Atorvastatin Calcium (LIPITOR) 40 MG 2100 PO Docusate Sodium (COLACE) 100 MG BID PO Insulin Glargine (Lantus/Semglee) 20 UNIT BEDTIM E SUBQ Melatonin (Melatonin) 3 MG BEDTIME PO Metoprolol Tartrate (LOPRESSOR) 25 MG Q12HR PO Ondansetron HCl (ZOFRAN ODT) 4 MG TID PRN PRN PO Sennosides (Senna Lax 8.6 MG TABLET) 17.2 MG BED TIME PO Lactulose (LACTULOSE) 20 GM BID PRN PO Functional Progress Functional progress: - - PT SPECIFIC EVAL AND DAILY NOTE - - PT CARE Transfers: Yes PT CARE Mobility: Yes PT Assessment: Yes PT Intensity of Service: Yes PT Daily Note: Yes PT Therapy Time Provided: Yes PT Goals: Yes - - PT THERAPY TIME PROVIDED - - PT individual evaluation/treatment: Yes PT individual total time (minutes): 90 PT TOTAL eval/treatment time: 90 - - PT INDIVIDUAL THERAPY TIME - - PT individual therapy time in: 0800 PT individual therapy time out: 0900 PT individual therapy time in: 1500 PT individual therapy time out: 1530 - - PT INTENSITY OF SERVICES - - Physical therapy intensity (minutes per day): 9 0 Physical therapy frequency (days per week): 5 Physical therapy duration (number of days): 12 Mode of therapy: Individual therapy - - PT DAILY NOTE - - PT daily note comment: S: Pt REPORTS SHE IS COL D AND TIRED. DTR REPORTS Pt NEEDS TO EITHER WEAR HER COMPRESSION GARMENTS OR SIT W/ LEGS ELEVATED, Pt NOT WANTING TO DO EITHER. O: Pt SEEN FOR INIITAL EVAL AND FUNCTIONAL MOBILITY. UP IN CHAIR. TRANSFERS SIT TO STAND TO W/C W/ CGA. TRANSFERS W/C TO TOILET W/ CGA, CUES FOR STERNAL PRECAUTIONS . TOILET W/ MAX A. TRANSFERS BACK W/ CGA. W/C MOBILTIY X 20 ' W/ SBA. SIT<->STAND FROM W/C X 3 REPS W/ CGA. GAIT W/ RW 20', 40' W/ RW AND SBA. TRANSFERS TO BED W/ MIN A, SIT TO SUPINE W/ MOD A AT LEGS. RETURNS TO SITTING W/ CGA. SIT TO STAND TO CHAIR W/ CGA. EDUCATION TO Pt AND DTR ON PLAN FOR PT, GOALS. A: Pt PRESENTS WITH IMPAIRED GAIT AND BALANCE, IMPAIRED ENDURANCE, LE EDMEA, AND NEW STERNAL PRECAUTION S. SHE WILL BENEFIT FROM REHAB TO [facility] MOBILITY FOR SAFE RETURN HOME. P: CONT W/ PT Special rehabilitation precautions: Sternal Safety/fall Patient had a fall or an intercepted fall this shift: No Anticipated discharge equipment: RW/Front wheel ed walker Barriers to discharge: DEFICITS W ADLS IMPAIRED ENDURANCE STERNAL PREACVUTIONS Strategies for D/C barriers: ADL TRAINING ENDURANCE TRAINING - - PT INTERDISCIPLINARY COLLABORATION - - Interdisciplinary team collaboration this shift : Rehab Nursing Focus area of collaboration this shift: JOCELYNE Results and continued need for team collaborati on: JOCELYNE ALL WELL Treating therapist: [email or web address] Tamar Esquivel Credentials: PT,DPT - - PT DISCHARGE GOALS - - PT goal 1: Pt WILL BE MOD I W/ ALL ASPECTS OF B ED MOBILITY, WHILE MAINTAINING STERNAL PRECAUTIONS PT goal 2: Pt WILL BE MOD I W/ ALL TRANSFERS WH ILE COMPLIANT W / STERNAL PRECAUTIONS PT goal 3: Pt WILL AMB 150' W/ RW MOD I PT goal 4: Pt WILL AMB UP/DOWN 1 STEP W/ RW MOD I PT goal 5: Pt/FAMILY WILL UNDERSTAND USE OF GAI T BELT TO LOWER Pt TO FLOOR TO PREVENT INJURY - - PT CARE DISCHARGE GOALS - - CARE Rolling left and right discharge goal: Ind ependent (6) CARE Sitting to lying discharge goal: Independe nt (6) CARE Lying to sitting on side of bed discharge goal: Independent (6) CARE Sitting to standing discharge goal: Indepe ndent (6) CARE Chair/bed to chair transfer discharge goal : Independent (6) CARE Car transfer discharge goal: Independent ( 6) CARE Walking 10 feet discharge goal: Independen t (6) CARE Walking 50 feet with two turns discharge g oal: Independent (6) CARE Walking 150 feet discharge goal: Independe nt (6) CARE Walking 10 feet on uneven surface discharg e goal: Independent (6) CARE 1 step (curb) discharge goal: Independent (6) CARE 4 steps discharge goal: Partial/moderate asst (3) CARE 12 steps discharge goal: Not applicable CARE Picking up object discharge goal: Independ ent (6) CARE [place] 50 feet with two turns discharge goal: Supervise/touch asst (4) CARE [place] 150 feet discharge goal: Supervis e/touch asst (4) Patients identified discharge goal: PT: Pt ABLE TO WALK - - PT CARE TOOL - - PT transfers CARE tool assessment for: Admissio n Patient rolled left and right: Yes Based on clinical judgement, pt unsafe to compl ete w/o tx intervention: No Rolled left and right independently: No Required setup or cleanup ONLY to roll left and right: No Required spv/verbal cues/CGA ONLY to roll left and right: Yes Admission rolling left and right CARE score: [place] pervision/touch (4 ) Patient performed sitting to lying: Yes Based on clinical judgement, pt unsafe to compl ete w/o tx intervention: No Performed sitting to lying independently: No Required setup or cleanup ONLY to go from sitti ng to lying: No Required spv/verbal cues/CGA ONLY to go from si tting to lying: No Completed at least 50% of effort to go from sit ting to lying: Yes Admission sitting to lying CARE score: Partial/ moderate (3) Patient performed lying to sitting on side of bed: Yes Based on clinical judgement, pt unsafe to compl ete w/o tx intervention: No Performed lying to sitting on side of bed independently: No Required setup or cleanup ONLY to go from lying to side of bed: No Required spv/verbal cues/CGA ONLY to go from ly ing to side of bed: Yes Admission lying to sitting CARE score: Supervis ion/touch ( 4) Patient performed sit to stand: Yes Based on clinical judgement, pt unsafe to compl ete w/o tx intervention: No Performed sit to stand independently: No Required setup or cleanup ONLY to go from sit t o stand: No Required spv/verbal cues/CGA ONLY to go from si t to stand: Yes Admission sitting to standing CARE score: Super vision/touch ( 4) Patient transferred to/from bed to chair: Yes Based on clinical judgement, pt unsafe to compl ete w/o tx intervention: No Transferred to/from bed to chair independently: No Required setup or cleanup ONLY to transfer to/f rom bed to chair: No Required spv/verbal cues/CGA ONLY to transfer t o/from bed to chair: Yes Admission bed to chair/WC transfer CARE score: Supervision/touch (4 ) Patient transferred in and out of car: No No transfer in and out of car due to the follow ing reason: Environmental limitations Admission car transfer CARE score: Not attempte d (10) Car transfer CARE comment: no car - - PT CARE WALKING - - PT mobility CARE tool assessment for: Admissio n Patient walked minimum of 10 feet: Yes Based on clinical judgement, pt unsafe to comp lete w/o tx intervention: No Walked 10 feet independently: No Required setup or cleanup ONLY to walk 10 feet: No Required spv/verbal cues/CGA ONLY to walk 10 feet: Yes Admission walk 10 ft CARE score: Supervision/t ouch (4) Patient walked minimum of 50 feet AND made two turns: No Not walking 50 feet AND two turns for the follo wing reason: Med cond/safety concern Admission walk 50 ft with two turns CARE score: Not attempted (88) Walked 50 feet AND two turns CARE comment: unab le to complete Patient walked minimum of 150 feet: No Not walking 150 feet for the following reason: Med cond/safety concern Admission walk 150 feet CARE score: Not attempt ed (88) Walked 150 feet CARE comment: unable Patient walked minimum of 10 feet on uneven surfaces: No Reason unable to walk 10 ft on uneven surface: Med cond/safety concern Admission walk 10 ft on uneven surface CARE sco re: Not attempted (88) Walked 10 ft on uneven surface CARE comment: un able Patient went up/down/over curb or 1 step: No Reason unable to step over curb or one step: Me d cond/safety concern Admission stepping over curb/step CARE score: N ot attempted (88) Stepped over curb or up/down one step CARE comm ent: unable Patient picked up small object from floor from standing position: No Reason unable to warehouse picker small object from seble ding: Med cond/safety concern Admission warehouse picker object from standing CARE sco re: Not attempted (88) Picked up object from standing position CARE co mment: unable - - PT CARE WHEELCHAIR - - Patient uses wheelchair or scooter: Yes Admission geographic information systems director wheelchair CARE score: 1 Patient attempted WC 50 feet AND made two turns : Yes Based on clinical judgement, pt unsafe to compl ete w/o tx intervention: No WC 50 feet AND two turns independently: No Required setup or cleanup ONLY for WC 50 feet a nd two turns: No Required spv/verbal cues/CGA ONLY for WC 50 fee t and two turns: No Patient completed at least 50% effort for WC 50 feet and two turns: Yes Admission WC 50 feet with 2 turns CARE score: P artial/moderate (3) Type of wheelchair/scooter used to go 50 feet: Manual Admission wheelchair type used for 50 feet: 1 Patient attempted WC 150 feet: Yes Based on clinical judgement, pt unsafe to comp lete w/o tx intervention: No WC 150 feet independently: No Required setup or cleanup ONLY for WC 150 feet : No Required supervision/verbal cues/CGA ONLY for W C 150 feet: No Patient completed at least 50% effort for WC 15 0 feet: No Patient completed less than 50% effort for WC 1 50 feet: Yes Admission WC 150 feet CARE score: Substantial/m ax (2) Type of wheelchair/scooter used to go 150 feet: Manual Admission wheelchair type used for 150 feet: 1 - - PT ASSESSMENT - - Past medical and surgical history: PMHX: macular degeneration, obesity, RONA, hyper tension, hyperlipidemia, diabetes, Crohn's disease, smash hand amaris atrial fibrillation, pacemaker placement, cardiac abla tion x3, L arm fx in may, LYMPHEDEMA IN B LE H/O PRESENT ILLNESS: ADMIT W/ SOB, FOUND TO HAV E PERICARDITIS W/ SIGNIFICANT CAD. S/P MVR AND CA BG X 1, PERICARDECTOMY Pre-hospital services utilized: None CARE Indoor mobility prior level of function: I ndependent (3) CARE Stairs prior level of function: Needed joy e help (2) PT prior level of function comment: Pt REPORTS SHE L[facility] W/ DTR, BROKE ARM IN MAY AND HAS BEEN USING HEMIWALKER, HAS HOME O2 ON OCCAS SAPPHIRE NAD CPAP AT NIGHT. DOES NOT DRIVE OF COOK/CLEAN. 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 - - SENSATION - - Sensation sharp/dull: Within functional limits Sensation hot/cold: Within functional limits Sensation proprioception: Within functional limits Sensation glove/stocking paresthesia: Within fu nctional limits Light touch sensation LLE: Within functional limits Light touch sensation RLE: Within functional limits Sensation comment: APPEARS WNL - - MUSCULOSKELETAL - - Range of motion LLE: Within functional limits Range of motion RLE: Within functional limits Range of motion spine: Within functional limits Muscle strength LLE: Outside functional limits Muscle strength RLE: Outside functional limits Endurance/activity tolerance: Outside functiona l limits Musculoskeletal/endurance comment: ENDURANCE: LOW, 2L O2 SPO2 91-93% HR PACED AT 7 3 -85 BPM STRENGHT: 4/ ALL MM GROUPS EXCEPT HIP FLEX AND HIP ABD 3+/5 - - BALANCE - - Balance static standing: Outside functional gomes its Balance dynamic standing: Outside functional li mits Balance static sitting: Within functional limit s Balance dynamic sitting: Within functional limi ts Balance function comment: STATIC STANDING W/ CG A DYN STANDING W/ B UE SUPPORT AND CGA Mobility performance: GAIT: 40' W/ RW AND CGA, 2L O2 W/C 20' W/ SBA, 2L PT evaluation results: Pt W/ DECLINE IN GAIT AN D MOBILITY, Pt W/ DECREASED ENDURANCE, STERNAL PRECAUTIONS, LE EDEMA. - - ANTICIPATED DISCHARGE PLANNING - - Expected length of stay in days: 12 Barriers to discharge: Endurance Expected discharge destination: Home Anticipated services upon discharge: Occupation al therapy Physical therapy Caregiver availability: Evenings only Caregiver can provide: Supervision only Evaluating therapist: [email or web address] Tamar Esquivel Credentials: PT,MARIANELAT Physical Exam General appearance: alert, awake, no acute distr ess Psych: alert, normal affect, oriented x 3 HEENT: anicteric, mucosal membranes moist, pupil s reactive to light, sclera clear Neck: non-tender, supple, no JVD Cardiovascular: regular rate rhythm, S1/S2, no m urmur Respiratory: diminished breath sounds, on oxygen , clear bilaterally Abdomen: obese, bowel sounds present, non-disten ded, soft, non-tender Skin: dry, normal temperature, no rash, INCISION S: CDI, sutures x 2. 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 Results Findings/Data: Laboratory Tests: 01/09 01/09 01/09 01/08 01/08 0546 0433 0433 2025 1556 Chemistry Potassium (3.4 - 5.0 mEq/L) 3.0 L POC Glucose (70 - 110 MG/DL) 94 167 H 153 H B-Natriuretic Peptide (0 - 100 PG/ML) 232.0 H 01/08 1054 Chemistry POC Glucose (70 - 110 MG/DL) 195 H Radiology data: Recent Impressions: RADIOLOGY - XR CHEST 1 V 01/09 0949 Report Impression - Status: SIGNED Entered: 01/09/2022 1049 IMPRESSION: 1. Improved aeration bilateral. Residual interst itial and perihilar opacities compatible with edema. Inflammation in the differential. 2. Residual subsegmental atelectasis. 3. Residual small volume pleural effusions. Impression By: Catherine Carlisle M.D. Diagnosis, Assessment Plan Problem List/A P: 1. Critical illness myopathy 2. CAD (coronary artery disease) 3. Severe mitral regurgitation 4. Constrictive pericarditis 5. S/P CABG x 1 6. S/P MVR (mitral valve replacement) 7. Immunosuppressed status 8. RONA on CPAP 9. Chronic a-fib 10. Crohn disease 11. Morbid obesity 12. Respiratory failure with hypoxia 13. Acute blood loss anemia 14. Generalized weakness 15. Impaired functional mobility, balance, gait , and endurance Free Text A P: Assessment: Critical illness myopathy Constrictive pericarditis Severe mitral regurgitation CAD 12/19: Status post CABG x1 (ROBERTS to LAD), ILAp, p ericardectomy 12/19: S/p MVR 01/06: Echo-EF 55-59%, normally functioning MV b ioprosthesis Chronic AF, s/p PPM/ablation-rate controlled-pac ed Volume overload-BLE edema History of lymphedema Generalized weakness Deconditioning Acute blood loss anemia Hypertension Morbid obesity HLD Crohn's disease Smoker Hypoxic respiratory failure Hypokalemia/hypomagnesemia secondary to diuretic s MARCELLO resolved Significant impaired ADLs, mobility, gait, marian ce and endurance Plan: -Comprehensive inpatient rehabilitation with physical, occupational and speech therapy 3 hours a day for 5 to 6 days per week-2 06/19 rehabilitation physician supervision-05/10 rehabilitat ion nursing care-Case management for safe discharge planning-Rehab MD to monitor comorbidities and f unctional progress. -Decubitus prevention-protective hydrating lotio n-turn every 2 hours-offload -Bowel program-MiraLAX and Senokot -Nutrition, monitor the michael ent's p.o. intake, check albumin 3.5 and prealbumin, dietary consult, protein supplements. -Strict fall and safety precaution -DVT prophylaxis-SCDs/antiembolism stockings -GI prophylaxis-Protonix -Glycemic control-continue insulin-blood sugars good-as per medicine -RNN-sgbqqjkv-iefeysiekt following -Respiratory insufficiency-wean O2-postop pulmon shruthi protocol, encourage I-S, deep cough and breathing exercises, slowly impro ving -CAD s/p CABG, MVR, and ILAA-on DAPT post-op car e per CTS -Acute/chr AF s/p PPM/ablation. Rate controlled, paced rhythm-had ILAA during bypass, no need for AC-as per cardiology -Volume htnflxix-kwjzmgfg-km diuretics, strict I 's and O's Daily -HTN. BP stable-on metoprolol -HLD-On statins. -Crohn's disease. Per IM. -Early mobilization-OOB to chair -Work on bed mobility, transfer training , ADLs, pre-gait and gait exercises as tolerable. -Increase endurance and strength -Pain management -Consultants-cardiology, CVS, medicine, nephrolo gy -Labs reviewed-WBC normal, h emoglobin improved 8.7, platelets normal, potassium 3.0, creatinine 1.1, magnesium 1.83, BNP 232-rep lete potassium 01/09: SOB-chest x-ray-impro laury aeration bilaterally. Residual interstitial and perihilar opacities. Subsegmental atelectasis. R esidual small volume pleural effusions. -Patient CPAP not working-RT to eval and try and fix -Encourage I-S and ambulation -BLE edema-ANA PAULA hose and elevation, exercise, diu retics -Diuresis as per cardiology -Anemia-continue ferrous sulfate, B12, vitamin C monitor H H -Monitor telemetry-DC if okay with cardiology -Nausea-Zofran -Continue current medications -Sternal incision intact and healing. Co ntinue sternal precautions for 6 weeks -Advance therapies as tolerable -Patient has impaired gait, ADLs, endura nce and balance with BLE edema and new sternal precautions. Patient will continue to be nefit from inpatient rehab to maximize mobility for safe return home. Progress: MAX A. TRANSFERS BACK W/ CGA. W/C MOBI LTIY X 20' W/ SBA. SIT<->STAND FROM W/C X 3 REPS W/ CGA. GAIT W/ RW 20', 40' W/ RW AND SBA. TRANSFERS TO BED W/ MIN A, SIT TO SUPINE W/ MOD A AT LEGS. RETURNS TO SITTING W/ CGA. SIT TO STAND TO CHAIR W/ CGA. PM R Please see team note. Plan and goals discussed with the patient. I agree with the teams finding ELOS: [12 days] SE-wpcx-hpjpq with daughter-HH versus outpatient cardiac rehabilitation DME-pending TT 35 min>50% with brina young with patient about SOB, therapies, low potassium, rehab plan of care, goals, e xpectations, needs, and medical issues, examination. MAR and EMR reviewed. All Questions answered. Orders: Procedure Date/time Status _RT: Non-Invasive Ventilation 01/09 1105 Active XR CHEST 1V 01/09 0949 Complete NEB TREATMENT SUBSQ 01/09 0850 Active NEB TREATMENT SUBSQ 01/09 0337 Active OXYGEN PER HOUR 01/09 0300 Complete CPAP/BIPAP ADULT/CHILD 01/09 0300 Complete NEB TREATMENT SUBSQ 01/08 2359 Complete NEB TREATMENT SUBSQ 01/08 2231 Active Consultants: cardiology, cardiovascular surgery, hospitalist, nephrology Plan discussed with: patient, nurse, interdisc c are team Rehab attestation: Face to face exam completed. Treatment plan disc ussed with patient. Meets continued stay criteria. Agree with interdiscipl inary treatment plan. at 1114 [facility] #:[id number] END OF REPORT 2022-01-08 19:41:00-00:00 [facility] ([facility]) Nephrology Consultation Note REPORT#:[id number] REPORT STATUS: Signed DATE:01/08/22 TIME: 1940 PATIENT: SAÚL GILES UNIT #: [id number] ROOM/BED: [place] [address] : 43 AGE: 76 SEX: F ATTEND: Shaun Landry MD ADM AUTHOR: Suki Fuchs MD * ALL edits or amendments must be made on the [employer]/computer document * History of Present Illness Requesting clinician: Dr Landry Reason for consult: Hypervolemia Chief complaint: CAD, S/P CABG HPI: This is a 76-year-old female who has past medica l history of hypertension, diabetes, coronary artery disease, atrial fibril lation who presented with worsening shortness of breath and on further wor k-up was 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 She was with normal kidney function prior to surgery and afte r her surgery she began to develop oliguria. Her procedure was done without any complications but after her surgery she did require pressor support for hypotension and she was intubated for respiratory acidosis and hypoxia a nd she was treated with vancomycin for infection treatment. She recovered kidney function and has been on diuretics for hypervolemia which has also imp roved significantly. She was seen in rehab today and was doing well, eating well. History - Adult longitudinal Past medical history: Reports: Atrial fibrillation, Diabetes mellitus, Hypertension, Dyslipidemia. Denies: Kidney disease/stones. Additional medical history: Clot degeneration Obstructive sleep apnea Chron's disease Lymphedema Past surgical history: Reports: Pacemaker (SJM). Additional family history: Reviewed and noncontributory Alcohol use: Denies EtOH use Drug use: Denies recreational drugs Smoking status for patients 13 years old or olde r: Never Smoker Allergies: Coded Allergies: ciprofloxacin (From CIPRO) (Severe, JOINT PAIN 1 ) morphine (Severe, RASH, SWELLING 01/07/22) Ambulatory status: Walker, Wheelchair Review of Systems Constitutional: Denies: chills, fever. Skin: Denies: rash, swelling. Allergy/Immun: Denies: itching, rhinorrhea. Eyes: Denies: redness, discharge. ENT: Denies: sore throat, throat pain. Respiratory: Denies: DOUGLASS (dyspnea on exertion), non productiv e cough, parox nocturnal dyspnea. Cardiovascular: Denies: DOUGLASS (dyspnea on exertion), edema. GI: Denies: abdominal pain, anorexia. : Denies: dysuria, flank pain. Musculoskeletal: Denies: arthritis, extremity pain. Objective General VS/I O: Vital Signs: Date Time Temp Pulse Resp B/P B/P Pulse O2 O2 F low FiO2 Mean Ox Delivery Rate 01/08 1935 71 18 137/75 95.9 96 BiPAP mask 01/08 1620 98 Nasal 3 cannula 01/08 1556 36.6 70 16 110/47 68.1 98 01/08 1120 Nasal 3 cannula 01/08 1056 36.5 71 16 136/80 99.0 96 01/08 0636 36.6 72 16 145/81 102.8 100 01/08 0525 36.6 84 16 140/72 94.9 97 01/08 0400 74 96 40 01/08 0018 72 98 40 01/07 2253 70 16 134/75 94.8 98 24 hour I O ending at 0700: 01/08 0700 01/07 1900 Intake Total Output Total Balance Number 0 Incontinent Voids Number Voids 2 Patient 112.7 kg Weight Weight Bed scale Measurement Method PATIENT WEIGHT: Weight (lb): 248 Weight (oz): 7.38 Weight (kg): 112.700 Physical Exam General appearance: alert, awake, oriented Head/eyes: atraumatic, EOMI ENT: moist mucous membranes, normal nose Neck: no JVD, no lymphadenopathy Cardiovascular: normal heart sounds, regular rat e and rhythm Respiratory: aerating well, clear to auscultatio n Abdomen: non-tender, soft Genitourinary: no bladder distention, no flank p ain Extremities: pitting edema, no gangrene, no swel ling Diagnosis, Assessment Plan Consultants: cardiology, cardiovascular surgery, hospitalist, nephrology Free Text DxA P Notes Free text DxA P notes: This is a 76-year-old female known to have hyper tension, diabetes, atrial fibrillation, s/p permanent pacemaker and histor y of ablation presenting with shortness of breath and found to have multivesse l coronary artery disease therefore she had CABG on December 19 after which she has developed oliguria. Nephrology is following for: 1. Acute kidney injury: Most likely it i s prerenal (cardiorenal), she has been hypotensive postoperatively with require ment for pressor support and inotropic support. Resolved with stable hemodynamics 2. Hypervolemia:Improved, on low dose lasix. 3. Hypokalemia: Plan to replace nd monitor close ly. 4. Metabolic alkalosis secondary to diur etics. Plan to monitoe and give diamox if worsens. Electronically Signed by Suki Fuchs MD on at 2146 RPT #:[id number] END OF REPORT 2022-01-08 12:00:00-00:00 [facility] Cardiothoracic Surgery Prog REPORT#:[id number] REPORT STATUS: Signed DATE:01/08/22 TIME: 1200 PATIENT: SAÚL GILES UNIT #: [id number] ROOM/BED: [place] [address] : 43 AGE: 76 SEX: F ATTEND: Shaun Landry MD ADM AUTHOR: Kena Macedo * ALL edits or amendments must be made on the [employer]/computer document * General Status post: 1. Mitral valve replacement (31 Magna valve). 2. Coronary artery bypass graft surgery x1 (ROBERTS to LAD). 3. Isolation of left atrial appendage. 4. Pericardiectomy. Subjective Chief complaint: Follow-up CABG and MVR, isolation of lef t atrial appendage and pericardiectomy Review of Systems Constitutional: Denies: fever, malaise. Allergy/Immun: Denies: allergic reaction. Respiratory: Denies: SOB. GI: Denies: abdominal pain, nausea, vomiting. Objective General VS/I O Last Documented: Result Date Time O2 Delivery Nasal cannula 01/08 1120 O2 Flow Rate 3 01/08 1120 Pulse Ox 96 01/08 1056 B/P 136/80 01/08 1056 B/P Mean 99.0 01/08 1056 Temp 97.7 01/08 1056 Pulse 71 01/08 1056 Resp 16 01/08 1056 FiO2 40 01/08 0400 24 hour I O ending at 0700: 01/08 0700 01/07 1900 Intake Total Output Total Balance Number 0 Incontinent Voids Number Voids 2 Patient 248 lb Weight Weight Bed scale Measurement Method PATIENT WEIGHT: Weight (lb): 248 Weight (oz): 7.38 Weight (kg): 112.700 Physical Exam General appearance: obese, alert, oriented, no r espiratory distress HEENT: anicteric Neck: supple/no meningismus Cardiovascular: normal heart sounds, regular rat e rhythm Respiratory: aerating well, symmetric expansion, no distress Abdomen: soft, non-tender, no distention Extremities: moves all 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, 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, normal speech, n o motor deficits Psychiatry: normal affect, normal mood Current Medications Medications: Active Meds + DC'd Last 24 Hrs Polyethylene Glycol (MIRALAX) 17 GM DAILY PO (CA N) Magnesium Oxide (MAG-OX 400) 400 MG BEDTIME PO ( CAN) Potassium Chloride (POTASSIUM CHLORIDE 20MEQ TAB .ER) 40 MEQ ONCE ONE PO (UNV) Potassium Chloride (POTASSIUM CHLORIDE 20MEQ TAB .ER) 40 MEQ DAILY PRN PRN PO Acetazolamide (DIAMOX) 250 MG DAILY PO Aspirin (ASPIRIN) 81 MG DAILY PO Clopidogrel Bisulfate (Plavix) 75 MG DAILY PO Cyanocobalamin (Vitamin B-12 500 mcg tab) 500 MC G DAILY PO Ferrous Sulfate (FERROUS SULFATE) 325 MG DAILY P O Furosemide (LASIX) 40 MG DAILY PO Insulin Glargine (Lantus/Semglee) 30 UNIT DAILY SUBQ Methadone HCl (DOLOPHINE) 5 MG DAILY PO (CAN) Metolazone (metOLazone) 5 MG DAILY PO (DC) Polyethylene Glycol (MIRALAX) 17 GM DAILY PO Sodium Chloride (SODIUM CHLORIDE) 10 ML BID IV Insulin Human Lispro (HUMALOG) 0 AC HS SUBQ Pantoprazole (PROTONIX) 40 MG DAILY@0600 PO Acetylcysteine (MUCOMYST FOR RT) 200 MG RTQ6H NE B Albuterol/Ipratropium (DUONEB) 3 ML RTQ6H NEB Glucagon (GLUCAGON) 1 MG ASDIR PRN IM Acetaminophen (TYLENOL) 650 MG Q4H PRN PRN PO Bisacodyl (DULCOLAX) 5 MG DAILY PRN PRN PO Dextrose/Water (DEXTROSE 10% IN WATER) 250 ML DIR PRN IV (CKD) Lactulose (LACTULOSE) 20 GM BID PRN PRN PO (DC) Sodium Chloride (SODIUM CHLORIDE) 4 ML RTBID NEB Amiodarone HCl (CORDARONE) 200 MG Q12HR PO Atorvastatin Calcium (LIPITOR) 40 MG 2100 PO Docusate Sodium (COLACE) 100 MG BID PO Insulin Glargine (Lantus/Semglee) 20 UNIT BEDTIM E SUBQ Melatonin (Melatonin) 3 MG BEDTIME PO Metoprolol Tartrate (LOPRESSOR) 25 MG Q12HR PO Ondansetron HCl (ZOFRAN ODT) 4 MG TID PRN PRN PO Sennosides (Senna Lax 8.6 MG TABLET) 17.2 MG BED TIME PO Lactulose (LACTULOSE) 20 GM BID PRN PO Results Findings/Data: Laboratory Tests 01/08 01/08 01/08 01/08 01/07 1054 0524 0510 0510 1942 Chemistry Sodium (134 - 147 mEq/L) 142 Potassium (3.4 - 5.0 mEq/L) 3.0 L Chloride (100 - 108 mEq/L) 98 L Carbon Dioxide (21 - 33 mEq/l) 36 H Anion Gap (0 - 20) 11 BUN (7 - 18 mg/dL) 23 H Creatinine (0.6 - 1.3 mg/dL) 1.1 Glomerular Filtr Rate (70 - 80) 48.0 L Glucose (70 - 110 mg/dL) 106 POC Glucose (70 - 110 MG/DL) 195 H 117 H 168 H Hemoglobin A1c (4.8 - 6.0 %A1C) 5.8 Calcium (8.0 - 10.5 mg/dL) 9.4 Phosphorus (2.5 - 4.9 MG/DL) 2.7 Magnesium (1.80 - 2.40 mg/dL) 1.83 Albumin (3.4 - 5.0 g/dL) 3.50 Laboratory Tests 01/08 0510 Hematology WBC (4.5 - 11.0 x10 3/uL) 5.6 RBC (3.54 - 5.02 x10 6/uL) 2.55 L Hgb (11.0 - 15.0 g/dL) 8.7 L Hct (33.0 - 45.0 %) 28.4 L MCV (81.0 - 99.0 fL) 111.4 H MCH (27.0 - 33.0 pg) 34.1 H MCHC (33.0 - 37.0 g/dL) 30.6 L RDW (11.5 - 14.5 %) 19.1 H Plt Count (150 - 400 x10 3/uL) 221 MPV (7.0 - 9.0 fL) 11.0 H Neut % (Auto) (56.0 - 77.0 %) 76.3 Lymph % (Auto) (14.0 - 32.0 %) 8.3 L Barron % (Auto) (4.8 - 9.0 %) 11.5 H Eos % (Auto) (0.3 - 3.7 %) 2.3 Baso % (Auto) (0.0 - 2.0 %) 0.7 Neut # (Auto) (2.0 - 7.6 x10 3/uL) 4.24 Lymph # (Auto) (1.0 - 3.8 x10 3/uL) 0.46 L Barron # (Auto) (0.1 - 0.8 x10 3/uL) 0.64 Eos # (Auto) (0.0 - 0.2 x10 3/uL) 0.13 Baso # (Auto) (0.0 - 0.2 x10 3/uL) 0.04 Abs Immat Gran (auto) (0.00 - 0.03 x10 3/uL) 0. 05 H Add Manual Diff NO Immature Gran % (0.0 - 2.0 %) 0.9 Nucleated RBC % (0 - 0 %) 0.0 Nucleated RBCs # (Man) (0.0 - 0.1 x10 3/uL) 0.0 0 Diagnosis, Assessment Plan Hospital course to date: This very pleasant 76-year-old female, from [facility], with past medical history of macular d egeneration, obesity, obstructive sleep apnea (CPAP at home), former smoker, hyp ertension, hyperlipidemia, diabetes, Crohn's disease , chronic atrial fibrillatio n status post 3 ablations in the past (on Xarelto), pacemaker placement who had a recent admission t o the hospital with heart failure symptoms. She has be en admitted to the hospital today for elective heart cath. Coronary angiogram showed severe m ultivessel coronary artery disease not suitable for percutaneous intervention. s/p 1. Mitral valve replacement (31 Magna valve). 2. Coronary artery bypass graft surgery x1 (ROBERTS to LAD). 3. Isolation of left atrial appendage. 4. Pericardiectomy. 01/08 Patient seen at rehab She is alert and oriented, no respiratory distre ss on nasal cannula Wean O2 as tolerated Sternal incision intact and healing. Continue st ernal precautions for 6 weeks Encourage I-S and ambulation Diuresis by nephrology. Replace potassium Continue rehab Consultants: cardiology, cardiovascular surgery, hospitalist, nephrology at 1212 at 1031 RPT #:[id number] END OF REPORT 2022-01-08 11:49:00-00:00 [facility] Cardiology Consultation REPORT#:[id number] REPORT STATUS: Signed DATE:01/08/22 TIME: 1149 PATIENT: SAÚL GILES UNIT #: [id number] ROOM/BED: [place] [address] : 43 AGE: 76 SEX: F ATTEND: Shaun Landry MD ADM AUTHOR: Isabella Clemens CNP * ALL edits or amendments must be made on the [facility]/computer document * History of Present Illness HPI Requesting Clinician: Dr. Landry Reason for consult: Continuity of cardiac-related care Chief complaint: None PCP: PCP: Abdiaziz Fuchs MD NYHA Classification: II HPI: Ms Giles is a 76 y/o female with PMHx of CAD, HL D, T2DM, RONA (CPAP at home), smoker, Crohn's disease, AF s/p ablation s/p PPM, and chronic lymphedema. She is recovering from CABG and MVR. She is transferred to [facility] for inpatient rehabilitation. Cardiolgy is consulted f or continuity of cardiac-related care. History - Adult longitudinal Past medical history: Reports: Atrial fibrillation, Diabetes mellitus, Hypertension, Dyslipidemia. Denies: Kidney disease/stones. Additional medical history: Clot degeneration Obstructive sleep apnea Chron's disease Past surgical history: Reports: Pacemaker (SJM). Additional family history: Reviewed and noncontributory Alcohol use: Denies EtOH use Drug use: Denies recreational drugs Smoking status for patients 13 years old or olde r: Never Smoker Allergies: Coded Allergies: ciprofloxacin (From CIPRO) (Severe, JOINT PAIN 1 ) morphine (Severe, RASH, SWELLING 01/07/22) Ambulatory status: Walker, Wheelchair Review of Systems Constitutional: Denies: fatigue, generalized weakness. Respiratory: Denies: SOB. Cardiovascular: Denies: chest pain. GI: Denies: anorexia, nausea, vomiting. Neuro: Denies: weakness. Psych: Denies: anxiety. Objective General VS/I O: Vital Signs: Date Time Temp Pulse Resp B/P B/P Pulse O2 O2 F low FiO2 Mean Ox Delivery Rate 01/08 1120 Nasal 3 cannula 01/08 1056 36.5 71 16 136/80 99.0 96 01/08 0636 36.6 72 16 145/81 102.8 100 01/08 0525 36.6 84 16 140/72 94.9 97 01/08 0400 74 96 40 01/08 0018 72 98 40 01/07 2253 70 16 134/75 94.8 98 01/07 2127 76 96 40 01/07 2127 96 BiPAP 40 01/07 194 Nasal 3 cannula 01/07 1938 36.5 70 18 137/81 99.8 94 Room air 24 hour I O ending at 0700: 01/08 0700 01/07 1900 Intake Total Output Total Balance Number 0 Incontinent Voids Number Voids 2 Patient 112.7 kg Weight Weight Bed scale Measurement Method PATIENT WEIGHT: Weight (lb): 248 Weight (oz): 7.38 Weight (kg): 112.700 Medications: Active Meds + DC'd Last 24 Hrs Polyethylene Glycol (MIRALAX) 17 GM DAILY PO (CA N) Magnesium Oxide (MAG-OX 400) 400 MG BEDTIME PO ( CAN) Potassium Chloride (POTASSIUM CHLORIDE 20MEQ TAB .ER) 40 MEQ DAILY PRN PRN PO Acetazolamide (DIAMOX) 250 MG DAILY PO Aspirin (ASPIRIN) 81 MG DAILY PO Clopidogrel Bisulfate (Plavix) 75 MG DAILY PO Cyanocobalamin (Vitamin B-12 500 mcg tab) 500 MC G DAILY PO Ferrous Sulfate (FERROUS SULFATE) 325 MG DAILY P O Furosemide (LASIX) 40 MG DAILY PO Insulin Glargine (Lantus/Semglee) 30 UNIT DAILY SUBQ Methadone HCl (DOLOPHINE) 5 MG DAILY PO (CAN) Metolazone (metOLazone) 5 MG DAILY PO (DC) Polyethylene Glycol (MIRALAX) 17 GM DAILY PO Sodium Chloride (SODIUM CHLORIDE) 10 ML BID IV Insulin Human Lispro (HUMALOG) 0 AC HS SUBQ Pantoprazole (PROTONIX) 40 MG DAILY@0600 PO Acetylcysteine (MUCOMYST FOR RT) 200 MG RTQ6H NE B Albuterol/Ipratropium (DUONEB) 3 ML RTQ6H NEB Glucagon (GLUCAGON) 1 MG ASDIR PRN IM Acetaminophen (TYLENOL) 650 MG Q4H PRN PRN PO Bisacodyl (DULCOLAX) 5 MG DAILY PRN PRN PO Dextrose/Water (DEXTROSE 10% IN WATER) 250 ML DIR PRN IV (CKD) Lactulose (LACTULOSE) 20 GM BID PRN PRN PO (DC) Sodium Chloride (SODIUM CHLORIDE) 4 ML RTBID NEB Amiodarone HCl (CORDARONE) 200 MG Q12HR PO Atorvastatin Calcium (LIPITOR) 40 MG 2100 PO Docusate Sodium (COLACE) 100 MG BID PO Insulin Glargine (Lantus/Semglee) 20 UNIT BEDTIM E SUBQ Melatonin (Melatonin) 3 MG BEDTIME PO Metoprolol Tartrate (LOPRESSOR) 25 MG Q12HR PO Ondansetron HCl (ZOFRAN ODT) 4 MG TID PRN PRN PO Sennosides (Senna Lax 8.6 MG TABLET) 17.2 MG BED TIME PO Lactulose (LACTULOSE) 20 GM BID PRN PO Physical Exam General appearance: alert, awake, oriented, no a cute distress ENT: normal nose Neck: no JVD Cardiovascular: CV assessment: regular rate and rhythm Respiratory: decreased breath sounds, no distres s Abdomen: soft, non-tender, normal bowel sounds, no distention Genitourinary: no flank pain, no urinary cathete r Upper extremity: UE assessment: no edema Lower extremity: LE assessment: no edema Musculoskeletal: normal inspection 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, 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, normal speech Skin: poor skin turgor Psychiatry: normal affect, normal mood Results Findings/Data: Laboratory Tests 01/08 01/08 01/08 01/08 01/07 1054 0524 0510 0510 1942 Chemistry Sodium (134 - 147 mEq/L) 142 Potassium (3.4 - 5.0 mEq/L) 3.0 L Chloride (100 - 108 mEq/L) 98 L Carbon Dioxide (21 - 33 mEq/l) 36 H Anion Gap (0 - 20) 11 BUN (7 - 18 mg/dL) 23 H Creatinine (0.6 - 1.3 mg/dL) 1.1 Glomerular Filtr Rate (70 - 80) 48.0 L Glucose (70 - 110 mg/dL) 106 POC Glucose (70 - 110 MG/DL) 195 H 117 H 168 H Hemoglobin A1c (4.8 - 6.0 %A1C) 5.8 Calcium (8.0 - 10.5 mg/dL) 9.4 Phosphorus (2.5 - 4.9 MG/DL) 2.7 Magnesium (1.80 - 2.40 mg/dL) 1.83 Albumin (3.4 - 5.0 g/dL) 3.50 Laboratory Tests 01/08 0510 Hematology WBC (4.5 - 11.0 x10 3/uL) 5.6 RBC (3.54 - 5.02 x10 6/uL) 2.55 L Hgb (11.0 - 15.0 g/dL) 8.7 L Hct (33.0 - 45.0 %) 28.4 L MCV (81.0 - 99.0 fL) 111.4 H MCH (27.0 - 33.0 pg) 34.1 H MCHC (33.0 - 37.0 g/dL) 30.6 L RDW (11.5 - 14.5 %) 19.1 H Plt Count (150 - 400 x10 3/uL) 221 MPV (7.0 - 9.0 fL) 11.0 H Neut % (Auto) (56.0 - 77.0 %) 76.3 Lymph % (Auto) (14.0 - 32.0 %) 8.3 L Barron % (Auto) (4.8 - 9.0 %) 11.5 H Eos % (Auto) (0.3 - 3.7 %) 2.3 Baso % (Auto) (0.0 - 2.0 %) 0.7 Neut # (Auto) (2.0 - 7.6 x10 3/uL) 4.24 Lymph # (Auto) (1.0 - 3.8 x10 3/uL) 0.46 L Barron # (Auto) (0.1 - 0.8 x10 3/uL) 0.64 Eos # (Auto) (0.0 - 0.2 x10 3/uL) 0.13 Baso # (Auto) (0.0 - 0.2 x10 3/uL) 0.04 Abs Immat Gran (auto) (0.00 - 0.03 x10 3/uL) 0. 05 H Add Manual Diff NO Immature Gran % (0.0 - 2.0 %) 0.9 Nucleated RBC % (0 - 0 %) 0.0 Nucleated RBCs # (Man) (0.0 - 0.1 x10 3/uL) 0.0 0 Laboratory Tests 01/08 0510 Chemistry Magnesium (1.80 - 2.40 mg/dL) 1.83 Results: labs reviewed, vital signs reviewed Telemetry Interpretation: paced Diagnosis, Assessment Plan Problem List/A P: 1. CAD (coronary artery disease) 2. Severe mitral regurgitation 3. Chronic a-fib 4. S/P CABG x 1 5. S/P MVR (mitral valve replacement) Plan discussed with: patient, daughter Free Text DxA P Notes Free Text DxA P Notes: Ms Giles is a 76 y/o female with PMHx of CAD, HL D, T2DM, RONA (CPAP at home), smoker, Crohn's disease, AF s/p ablation s/p PPM, and chronic lymphedema. She is recovering from CABG and MVR. She is transferred to [facility] for inpatient rehabilitation. Cardiolgy is consulted f or continuity of cardiac-related care. 1. CAD s/p CABG, MVR, and ILAA. On Plavix, aspirin, beta-delma, statin 2. Chronic AF s/p PPM/ablation. had ILAA during bypass no need for AC keep K >4 and Mag above 2 taper amiodarone prior to discharge replace low potassium with KCL 40 mEq PO x1 3. Chronic Diastolic CHF - euvolemic on PO Lasix 4. Hypertension - normotensive continue metoprolol tartrate 25 mg BID 5. Hyperlipidemia Continue statins. 6. MARCELLO per Nephrology Appreciate the referral. at 1200 Electronically Signed by Aruna Fortune MD on at 1549 [facility] #:[id number] END OF REPORT 2022-01-08 09:26:00-00:00 [facility] ([facility]) Adult General Consultation REPORT#:[id number] REPORT STATUS: Signed DATE:01/08/22 TIME: 925 PATIENT: SAÚL GILES UNIT #: [id number] ROOM/BED: [place] [address] : 43 AGE: 76 SEX: F ATTEND: Shaun Landry MD ADM AUTHOR: Meryl Rosa MD * ALL edits or amendments must be made on the [employer]/computer document * History of Present Illness Reason for consult: medical management Free Text HPI Notes Free Text HPI Notes: 76 years old female with PMH of CAD, afib , DM, HTN, HLD ,RONA was transferred to the rehab yesterday from hospital . she had MVR (31 Magna valve), CABG x 1 ( ROBERTS-LAD), ILAA and pericardectomy . she is weak . she also complaint of sob ane edema . no fever no cough no cp no nausea no vomiting no dizziness . History - Adult longitudinal Past medical history: Reports: Atrial fibrillation, Diabetes mellitus, Hypertension, Dyslipidemia. Denies: Kidney disease/stones. Additional medical history: Clot degeneration Obstructive sleep apnea Chron's disease Past surgical history: Reports: Pacemaker (SJM). Additional family history: Reviewed and noncontributory Alcohol use: Denies EtOH use Drug use: Denies recreational drugs Smoking status for patients 13 years old or olde r: Never Smoker Allergies: Coded Allergies: ciprofloxacin (From CIPRO) (Severe, JOINT PAIN 1 ) morphine (Severe, RASH, SWELLING 01/07/22) Review of Systems Constitutional: fatigue, generalized weakness. Denies: fever, le thargy. Respiratory: Reports: SOB. Denies: non productive cough, whee zing. Cardiovascular: DOUGLASS (dyspnea on exertion), edema. Denies : chest pain, orthopnea, palpitations, parox nocturnal dyspnea. GI: Denies: abdominal pain, nausea, vomiting. : Denies: dysuria, flank pain, frequency. Neuro: Denies: dizziness, headache. Objective VS/I O: Last Documented: Result Date Time Pulse Ox 100 01/09 636 B/P 145/81 01/09 636 B/P Mean 102.8 01/09 636 Temp 36.6 01/09 636 Pulse 72 01/09 636 Resp 16 01/09 636 FiO2 40 01/08 0400 O2 Delivery BiPAP 01/07 2127 O2 Flow Rate 3 01/07 1947 24 hour I O ending at 0700: 01/08 0700 01/07 1900 Intake Total Output Total Balance Number 0 Incontinent Voids Number Voids 2 Patient 112.7 kg Weight Weight Bed scale Measurement Method PATIENT WEIGHT: Weight (lb): 248 Weight (oz): 7.38 Weight (kg): 112.700 General appearance: alert, awake, oriented, no a cute distress Head/Eyes: atraumatic, normo cephalic, normal conjunctiva/sclera, normal eyelids/ periorb. Neck: full range of motion, no JVD Cardiovascular: irregular rhythm, irregularly ir regular, normal heart sounds Respiratory: aerating well, clear to auscultatio n Abdomen: soft, non-tender, no distention Extremities: edema, moves all, no calf tendernes s 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, 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, CNII-XII grossly intact, normal speech, no motor deficits, no sensory deficits Skin: dry, intact Results Findings/Data: Laboratory Tests: 01/08 01/08 01/08 01/07 0524 0510 0510 194 Chemistry Sodium (134 - 147 mEq/L) 142 Potassium (3.4 - 5.0 mEq/L) 3.0 L Chloride (100 - 108 mEq/L) 98 L Carbon Dioxide (21 - 33 mEq/l) 36 H Anion Gap (0 - 20) 11 BUN (7 - 18 mg/dL) 23 H Creatinine (0.6 - 1.3 mg/dL) 1.1 Glomerular Filtr Rate (70 - 80) 48.0 L Glucose (70 - 110 mg/dL) 106 POC Glucose (70 - 110 MG/DL) 117 H 168 H Hemoglobin A1c (4.8 - 6.0 %A1C) 5.8 Calcium (8.0 - 10.5 mg/dL) 9.4 Phosphorus (2.5 - 4.9 MG/DL) 2.7 Magnesium (1.80 - 2.40 mg/dL) 1.83 Albumin (3.4 - 5.0 g/dL) 3.50 Hematology WBC (4.5 - 11.0 x10 3/uL) 5.6 RBC (3.54 - 5.02 x10 6/uL) 2.55 L Hgb (11.0 - 15.0 g/dL) 8.7 L Hct (33.0 - 45.0 %) 28.4 L MCV (81.0 - 99.0 fL) 111.4 H MCH (27.0 - 33.0 pg) 34.1 H MCHC (33.0 - 37.0 g/dL) 30.6 L RDW (11.5 - 14.5 %) 19.1 H Plt Count (150 - 400 x10 3/uL) 221 MPV (7.0 - 9.0 fL) 11.0 H Neut % (Auto) (56.0 - 77.0 %) 76.3 Lymph % (Auto) (14.0 - 32.0 %) 8.3 L Barron % (Auto) (4.8 - 9.0 %) 11.5 H Eos % (Auto) (0.3 - 3.7 %) 2.3 Baso % (Auto) (0.0 - 2.0 %) 0.7 Neut # (Auto) (2.0 - 7.6 x10 3/uL) 4.24 Lymph # (Auto) (1.0 - 3.8 x10 3/uL) 0.46 L Barron # (Auto) (0.1 - 0.8 x10 3/uL) 0.64 Eos # (Auto) (0.0 - 0.2 x10 3/uL) 0.13 Baso # (Auto) (0.0 - 0.2 x10 3/uL) 0.04 Abs Immat Gran (auto) (0.00 - 0.03 x10 3/uL) 0. 05 H Add Manual Diff NO Immature Gran % (0.0 - 2.0 %) 0.9 Nucleated RBC % (0 - 0 %) 0.0 Nucleated RBCs # (Man) (0.0 - 0.1 x10 3/uL) 0. 00 Microbiology: Date/Time Procedure - Status Source Growth 01/08 0510 MRSA DNA Surveillance Screen - RECD NASAL 01/07 1827 MRSA DNA Surveillance Screen - ORD NASAL Diagnosis, Assessment Plan Orders: Procedure Date/time Status _RT: Non-Invasive Ventilation 01/07 2007 Active Consultants: cardiology, cardiovascular surgery, hospitalist, nephrology Free Text DxA P Notes Free Text DxA P Notes: general weakness CAD - post CABG CHF HTN DM HLD afib RONA morbid obesity CAD -- cardiology consult CV surgeon consult CABG --post procedure ASA/lipitor Echocardiogram showed EF 55 to 59% edema --lasix /zaroxolyn -- monitor renal function weakness --PT/OT as rehab afib -- rate control -- xarelto/amiodarone /metoprolol HTN-- metoprolol/norvasc DM-- on lantus -- sliding scale HLD-- on lipitor RONA--cpap as nigth DVTP -- xarelto will follow the patient in rehab . thank for laith breen Electronically Signed by Meryl Rosa MD on 2 at 1652 RPT #:[id number] END OF REPORT 2022-01-08 07:29:00-00:00 [facility] Rehab Indiv Overall POC REPORT#:[id number] REPORT STATUS: Signed DATE:01/08/22 TIME: 728 PATIENT: SAÚL GILES UNIT #: [id number] ROOM/BED: [place] [address] : 43 AGE: 76 SEX: F ATTEND: Shaun Landry MD ADM AUTHOR: Jesus Landry MD * ALL edits or amendments must be made on the [employer]/computer document * Individualized Overall POC HPI Impairment group: neurologic conditions NOTE Document ONLY ONE Impairment Group Neurologic conditions: neuromuscular disorders Etiologic diagnosis: Critical illness myopathy Medical Expected Course Expected DC destination: Expected DC destination: Home Problem List/A P: 1. Critical illness myopathy 2. CAD (coronary artery disease) 3. Severe mitral regurgitation 4. Constrictive pericarditis 5. S/P CABG x 1 6. S/P MVR (mitral valve replacement) 7. Immunosuppressed status 8. RONA on CPAP 9. Chronic a-fib 10. Crohn disease 11. Morbid obesity 12. Respiratory failure with hypoxia 13. Acute blood loss anemia 14. Generalized weakness 15. Impaired functional mobility, balance, gait , and endurance Medical prognosis: good Medical prognosis details: pt motivation, family /caregiver support, D/C plan Med prognosis comment: Good Expected course of Tx: -Comprehensive inpatient rehabilitation with physical, occupational and speech therapy 3 hours a day for 5 to 6 days per week-2 06/19 rehabilitation physician supervision-05/10 rehabilitation nursing care. -Case management for safe discharge planning. -Rehab MD to monitor comorbidities and functiona l progress. -Decubitus prevention-protective hydrating lotio n-turn every 2 hours-offload -Bowel program -Nutrition, monitor the patient's p.o. intake, c heck albumin and prealbumin, dietary consult, protein supplements. -Strict fall and safety precaution -DVT prophylaxis-SCDs -GI prophylaxis-Protonix -Glycemic control-continue insulin-monitor blood sugars-as per medicine -MARCELLO-resolved -Respiratory insufficiency-wean O2-postop pulmon shruthi protocol, encourage I-S, deep cough and breathing exercises, slowly impro ve -CAD s/p CABG, MVR, and ILAA-on DAPT post-op car e per CTS -Acute/chr AF s/p PPM/ablation. Rate controlled, paced rhythm-had ILAA during bypass, no need for AC-as per cardiology -Volume ozaweing-jsxxohid-ly diuretics, strict I 's and O's Daily -HTN. BP stable-on metoprolol -HLD-On statins. -Crohn's disease. Per IM. -Early mobilization-OOB to chair -Work on bed mobility, transfer training , ADLs, pre-gait and gait exercises as tolerable. -Increase endurance and strength -Pain management -Consultants-cardiology, CVS, medicine, nephrolo gy -Labs reviewed- -Anemia-continue ferrous sulfate, B12, monitor H H -Monitor telemetry-DC if okay with cardiology -Continue current medication -Strict sternal precautions -ELOS: 12 days -GOALS: Modified -Patient medically ready to start IRF Functional Expected Course Functional expected course: The data set between the solid lines has been im ported from multidisciplinary team documentation: __ ANTICIPATED SERVICES IN ACUTE INPATIENT REHAB: DISCIPLINE Physical Therapy Occupational Therapy Speech Therapy INTENSITY (minutes/day) 90 90 FREQUENCY (days/week) 5 5 DURATION (# of days) 12 12 EXPECTED FUNCTIONAL OUTCOMES: CARE Rolling left and Independent (6) right discharge goal: CARE Sitting to Independent (6) lying discharge goal: CARE Lying to sitting Independent (6) on side of bed discharge goal: CARE Sitting to Independent (6) standing discharge goal: CARE Chair/bed to Independent (6) chair transfer discharge goal: CARE Car transfer Independent (6) discharge goal: CARE Walking 10 Independent (6) feet discharge goal: CARE Walking 50 feet Independent (6) with two turns discharge goal: CARE Walking 150 Independent (6) feet discharge goal: CARE Walking 10 feet on Independent (6) uneven surface discharge goal: CARE 1 step (curb) Independent (6) discharge goal: CARE 4 steps Partial/moderate asst (3) discharge goal: CARE 12 steps Not applicable discharge goal: CARE Picking up Independent (6) object discharge goal: CARE [place] 50 feet Supervise/touch asst (4) with two turns discharge goal: CARE [place] 150 Supervise/touch asst (4) feet discharge goal: CARE Toileting hygiene Independent (6) discharge goal: CARE Transfer on/off toilet Independent (6) or commode discharge goal: CARE Eating discharge goal: Independent (6) CARE Oral hygiene Independent (6) discharge goal: CARE Shower/bathe Independent (6) self discharge goal: CARE Upper body Independent (6) dressing discharge goal: CARE Lower body Independent (6) dressing discharge goal: CARE Putting on/taking Independent (6) off footwear discharge goal: Bowel function goal: PT WILL MAINTAIN NORMAL BOW EL FUNCTION IN REHAB STAY Bladder function goal: PT WILL MAINTAIN NORMAL B LADDER FUNCITON IN REHAB STAY _ ELOS Attestation: Based upon the review of clinical staff recommendations of frequency, duration and intensity and individual assessment of this patient, I estimate the following: See H P. Estimated length of stay: 12 days MD Review/Recommendation Attestation: Based upon my physical evaluation of the patient and input from the interdisciplinary team members I have de veloped this interdisciplinary overall plan of care and determined the admission to the IRF is reasonable and necessary.The IOPOC will be updated weekly and m odified under my direction. Patient can be expected to actively participate in, and benefit from, an intensive rehab therapy prog my whose intensity is not provided in lower levels of care. Complex acute rehab needs: Custom therapy tx vicki n, Mgt of complex Co-morb, Multiple consulting MDs, Med adjustment/mgmt., N ew medical diagnosis, New medical complication, Postsurgery req mgt/care, Nutritional compromise, Hospitalist consult, VTE Risk, STERNAL PRECAUTIO NS at 0737 RPT #:[id number] END OF REPORT 2022-01-08 05:52:00-00:00 [facility]) Rehab History Physical REPORT#:[id number] REPORT STATUS: Signed DATE:01/08/22 TIME: 05 PATIENT: SAÚL GILES UNIT #: [id number] ROOM/BED: [place] [address] : 43 AGE: 76 SEX: F ATTEND: Shaun Landry MD ADM AUTHOR: Jesus Landry MD * ALL edits or amendments must be made on the el [employer]/computer document * HPI HPI Chief complaint: Generalized weakness PCP: Abdiaziz Fuchs MD Referring physician: DR. ALVA HPI: This is a 76-year-old female who has past medic al history of hypertension, diabetes, coronary artery disease, atrial fibril lation who presented with worsening shortness of breath and on further wor k-up was 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 She was with normal kidney function prior to surgery and afte r her surgery she began to develop oliguria. Her procedure was done without any complications but after her surgery she did require pressor support for hypotension and she was intubated for respiratory acidosis and hypoxia a nd she was treated with vancomycin for infection treatment. When she was seen this morning she continued to have hypotension and her heart rate was paced by her permanent pacemaker and her urine outp ut was 20 to 30/h. Her family at bedside denied any history of kidney disease, kidney stone, chronic NSAID use or any urinary complaints. They also endorse that her b lood pressure and diabetes were mostly controlled. Pt underwent MVR, CABG x 1, ILLAA, p ericardectomy 12/19/[address] Romero. Pt developed critical illness m yopathy and is progressing slowly with therapy d/t weakness, self care deficit, decreas ed endurance and balance, and decreased functional mobility. Pt requiring acut e inpt rehab for multidisciplinary team of nursing, therapy, and physicians. Pt is willing and able to participate in 3 hr/day inpt rehab to re turn home safely. Pt's prior level of function was Mod I and sometimes used R W. Patient doing better. Patient denies any nausea, vomiting, fever or ch ills. No chest pain. Patient has DOUGLASS and some mild SOB at rest. She is on 3 L NC. She uses CPAP at night. Patient has some incisional chest pain. Daughter is at bedside. Preadmission screen was reviewed. Patient admitted to IRF. Changes since Pre Admit Screen None Premorbid participation: Prior Level of Function: ASSIST FOR BATHING; MOD I-IND FOR ALL OTHER ADLS. Home Environment: Single Story House Patient Lives With: Daughter Impairment group: neurologic conditions NOTE Document ONLY ONE Impairment Group Neurologic conditions: neuromuscular disorders Etiologic diagnosis: Critical illness myopathy History Preadmit diagnostic/labs: Date: 01/05/22 01/04/22 01/06/22 WBC: 7.0 7.3 5.7 HGB: 8.3 8.1 8.1 HCT: 26.4 24.0 25.6 Ca: 9.4 9.8 9.4 Na: 145 144 143 K+: 3.3 3.5 3.2 Glu: 259 103 115 M.91 2.02 BUN: 26 26 29 Creat: 1.0 0.9 1.1 Tot protein: Alb: PTT: PT: INR: PLT: 230 255 244 Cultures: 12/18/21 URINE YEAST 12/17/21 MRSA NEG ATIVE Imagin01/04/22 CXR IMPRESSION: Mild worsening right basilar opacities. Otherwise, stable exam. 01/03/22 CXR IMPRESSION: 1. Unchanged multifocal patchy bilateral airspace d isease in the left lung base and right mid and lower lung. 2. Unchanged small bilateral pleural effusions. 01/02/22 CXR IMPRESSION: No acute fin dings. Unchanged study. 12/31/21 CXR IMPRESSION: 1. Sta ble pulmonary opacities with multifocal consolidatio n and or atelectasis. 2. Stable pleural effusions. 3. Stable postoper ative cardiomediastinal silhouette. 12/30/21 IMPRESSION: 1. Bilateral mu ltifocal ground- glass pulmonary opacities with associated inters titial septal thickening. Edema and inflammation in the differential. Imag ing features can be seen with COVID-19 pneumonia, though are nonspecific and can occur with a variety of infectious and noninfectious processe s. (Reference: Michael) 2. Partial atelectasis of the lower lobes with additional foci of subsegmental atelectasis and or consolidation. 3 . Small bilateral pleural effusions. 4. Postoperative changes of CABG. Sta ble cardiomegaly. Trace pericardial fluid. Small volume anterior medias tinal hematoma/seroma. 12/23/21 ABD XRAY IMPRESSION: 1. A nasogastric t ube terminates overlying the stomach. 2. Dilated small bowel lo ops in the left lower quadrant MISCELLANEOUS U/S IMPRESSION: Minimal l eft and mild right pleural effusions. 12/21/21 RETROPERITONEU M U/S IMPRESSION: Limited exam. No sonographic abnormality of the kidneys. 12/20/21 CXR IMPRESSION: Stable radiographic appearance of th e chest. 12/17/21 DOPPLER U/S IMPRESSION: Greate 01/06/22 doppler u/s IMPRESSION: No evidence of deep vein thrombosis. r saphenous vein is patent. Vein mapping as described. 10/05/22 GONZALEZ TID DOPPLER IMPRESSION: No flow-limiting proximal internal c arotid arterial stenosis. 12/17/[address] IMPRESSION: 1. There is a 2 le ad cardiac pacemaker with control in the left chest. The le ads terminate in the regions of the right cardiac ventricle and coron shruthi sinus. There is a severe burden of three-vessel coronary artery at herosclerotic vascular calcification. There is cardiomegaly. There is no pericardial effusion. 2. There is mild interstitial pulmonary edema. There is pulmonary atelectasis but no evidence of pneumonia. CXR IMPRESSION: Cardiomegaly with minimal central venous conges tion. Past medical history: Reports: Atrial fibrillation, Diabetes mellitus, Hypertension, Dyslipidemia. Denies: Kidney disease/stones. Additional medical history: Clot degeneration Obstructive sleep apnea Chron's disease Lymphedema Past surgical history: Reports: Pacemaker (SJ). Additional family history: Reviewed and noncontributory Alcohol use: Denies EtOH use Drug use: Denies recreational drugs Smoking status for patients 13 years old or olde r: Never Smoker Medications: Home Medications: FUROSEMIDE (LASIX) 40 MG PO DAILY METOLAZONE (ZAROXOLYN) 5 MG PO DAILY acetaZOLAMIDE (DIAMOX) 250 MG PO DAILY DOCUSATE SODIUM (COLACE 50 MG/5 ML) 100 MG PO BI D PANTOPRAZOLE DR (PROTONIX) 40 MG PO DAILY METOPROLOL TARTRATE (LOPRESSOR) 25 MG PO Q12HR INSULIN GLARGINE (LANTUS) 20 UNIT SUBQ BEDTIME INSULIN GLARGINE (LANTUS) 30 UNIT SUBQ DAILY IPRATROPIUM/ALBUTEROL (DUONEB 0.5 MG-3/3ML) 3 ML NEB RTQ6H CLOPIDOGREL (PLAVIX) 75 MG PO DAILY FERROUS SULFATE (FEOSOL) 325 MG PO DAILY AMIODARONE (PACERONE) 200 MG PO BID ATORVASTATIN (LIPITOR) 40 MG PO 2100 ASPIRIN 81 MG PO DAILY Active Meds + DC'd Last 24 Hrs-medications recon ciled Acetazolamide (DIAMOX) 250 MG DAILY PO Furosemide (LASIX) 40 MG DAILY PO Potassium Chloride (POTASSIUM CHLORIDE 20MEQ TAB .ER) 20 MEQ Q2H PO (DC) Metoprolol Tartrate (LOPRESSOR) 25 MG Q12HR PO Acetazolamide (DIAMOX) 500 MG Q24H IV (DC) Furosemide (LASIX 40 mg/4 mL INJECTION) 40 MG DA EMELIA IV (DC) Sterile Water (WATER FOR INJECTION) 5 ML ASDIR P RN IV Potassium Chloride (POTASSIUM CHLORIDE 20MEQ TAB .ER) 40 MEQ DAILY PRN PRN PO Insulin Glargine (Lantus/Semglee) 30 UNIT DAILY SUBQ Insulin Glargine (Lantus/Semglee) 20 UNIT BEDTIM E SUBQ Insulin Human Lispro (HUMALOG) 0 AC HS SUBQ Dextrose/Water (DEXTROSE 10% IN WATER) 125 ML DIR PRN IV (CKD) Dextrose/Water (DEXTROSE 10% IN WATER) 250 ML DIR PRN IV (CKD) Glucagon (GLUCAGON) 1 MG ASDIR PRN IM Amiodarone HCl (CORDARONE) 200 MG BID PO Sterile Water (WATER FOR INJECTION) 5 ML ASDIR P RN IV Sterile Water (WATER FOR INJECTION) 5 ML ASDIR P RN IV Sodium Chloride (SODIUM CHLORIDE) 4 ML RTBID NEB Melatonin (Melatonin) 3 MG BEDTIME PO Sodium Chloride (SODIUM CHLORIDE) 10 ML BID IV Sodium Chloride (SODIUM CHLORIDE) 10 ML ASDIR NE N IV Pantoprazole (PROTONIX) 40 MG DAILY PO Dexmedetomidine/Sodium Chloride (PRECEDEX 1000MC G/NS 250ML) 250 ML ASDIR IV Bisacodyl (DULCOLAX) 10 MG DAILY PRN PRN RECTAL Lactulose (LACTULOSE) 20 GM DAILY PRN PRN PO Magnesium Hydroxide (MILK OF MAGNESIA) 30 ML PETER LY PRN PRN PO Aspirin (ASPIRIN) 81 MG DAILY PO Clopidogrel Bisulfate (Plavix) 75 MG DAILY PO Cyanocobalamin (Vitamin B-12 500 mcg tab) 500 MC G DAILY PO Ferrous Sulfate (FERROUS SULFATE) 325 MG DAILY P O Metolazone (metOLazone) 5 MG DAILY PO Polyethylene Glycol (MIRALAX) 17 GM DAILY PO Atorvastatin Calcium (LIPITOR) 40 MG 2100 PO Docusate Sodium (DOCUSATE SODIUM) 100 MG BID PO Senna (SENOKOT) 17.6 MG BEDTIME PO Acetaminophen (TYLENOL) 650 MG Q4H PRN PRN PO Acetylcysteine (MUCOMYST FOR RT) 200 MG RTQ6H NE B Albuterol/Ipratropium (DUONEB) 3 ML RTQ6H NEB Bisacodyl (DULCOLAX) 10 MG ONCE PRN RECTAL Dopamine HCl/Dextrose (DOPamine 400MG/D5W 250ML) 250 ML ASDIR IV Milrinone Lactate/Dextrose (MILRINONE 20MG/D5W 1 00ML) 100 ML ASDIR IV ( CKD) Vasopressin (VASOSTRICT 20 Unit/NS 100ML) 100 ML ASDIR IV (CKD) Acetaminophen (TYLENOL) 650 MG Q4H PRN PRN RECTA L Calcium Chloride (CALCIUM CHLORIDE) 1 GM ASDIR P RN IV Magnesium Sulfate (MAGNESIUM SULFATE 4GM/SWFI 10 0ML) 100 ML ASDIR PRN IV Magnesium Sulfate (MAGNESIUM SULFATE 2GM/SWFI 50 ML) 50 ML ASDIR PRN IV Magnesium Sulfate/Dextrose (MAGNESIUM SULFATE 1G M/D5W 100ML) 100 ML ASDIR PRN IV Nitroglycerin/Dextrose (NITROGLYCERIN 50, 000MCG/D5W 250ML) 250 ML ASDIR IV Norepinephrine Bitartrate (NOREPINEPHRINE 8 MG/N S 250 ML) 250 ML TITRATE IV Potassium Chloride (KCL 20MEQ/SWFI 100ML) 100 ML ASDIR PRN IV Sodium Bicarbonate (SODIUM BICARBONATE) 50 MEQ A SDIR PRN IV Ondansetron HCl (ZOFRAN) 4 MG Q6H PRN PRN IV Allergies: Coded Allergies: ciprofloxacin (From CIPRO) (Severe, JOINT PAIN 1 ) morphine (Severe, RASH, SWELLING 01/07/22) ROS ROS ROS comments: 14 point review of system wa s obtained. All system reviewed are either negative or noncontributory or in the body of the history and physical. Objective Physical Exam VS: Last Documented: Result Date Time Pulse Ox 100 01/09 636 B/P 145/81 01/09 636 B/P Mean 102.8 01/09 636 Temp 97.9 01/09 636 Pulse 72 01/09 636 Resp 16 01/09 636 FiO2 40 01/09 400 O2 Delivery BiPAP 01/07 2127 O2 Flow Rate 3 01/07 1947 PATIENT WEIGHT: Weight (lb): 248 Weight (oz): 7.38 Weight (kg): 112.700 General appearance: obese, alert, awake, oriente d, no acute distress Psych: alert, normal affect, oriented x 3 HEENT: anicteric, mucosal membranes moist, pupil s reactive to light, sclera clear Neck: non-tender, supple, no JVD Cardiovascular: regular rate rhythm, S1/S2, no m urmur Respiratory: diminished breath sounds, on oxygen , clear bilaterally Abdomen: bowel sounds present, non-distended, so ft, non-tender Skin: dry, normal temperature, no rash, INCISION S: CDI, sutures x 2. 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 Results Findings/Data: Laboratory Tests: 01/08 Chemistry POC Glucose (70 - 110 MG/DL) 117 H 168 H Microbiology: 01/08 510 NASAL: MRSA DNA Surveillance Screen - RECD 01/07 1827 NASAL: MRSA DNA Surveillance Screen - ORD Laboratory Tests 01/07 Chemistry Sodium (134 - 147 mEq/L) 142 Potassium (3.4 - 5.0 mEq/L) 3.0 Chloride (100 - 108 mEq/L) 98 Carbon Dioxide (21 - 33 mEq/l) 36 Anion Gap (0 - 20) 11 BUN (7 - 18 mg/dL) 23 Creatinine (0.6 - 1.3 mg/dL) 1.1 Glomerular Filtr Rate (70 - 80) 48.0 Glucose (70 - 110 mg/dL) 106 POC Glucose (70 - 110 MG/DL) 168 117 Hemoglobin A1c (4.8 - 6.0 %A1C) 5.8 Calcium (8.0 - 10.5 mg/dL) 9.4 Phosphorus (2.5 - 4.9 MG/DL) 2.7 Magnesium (1.80 - 2.40 mg/dL) 1.83 Albumin (3.4 - 5.0 g/dL) 3.50 Hematology WBC (4.5 - 11.0 x10 3/uL) 5.6 RBC (3.54 - 5.02 x10 6/uL) 2.55 Hgb (11.0 - 15.0 g/dL) 8.7 Hct (33.0 - 45.0 %) 28.4 MCV (81.0 - 99.0 fL) 111.4 MCH (27.0 - 33.0 pg) 34.1 MCHC (33.0 - 37.0 g/dL) 30.6 RDW (11.5 - 14.5 %) 19.1 Plt Count (150 - 400 x10 3/uL) 221 MPV (7.0 - 9.0 fL) 11.0 Neut % (Auto) (56.0 - 77.0 %) 76.3 Lymph % (Auto) (14.0 - 32.0 %) 8.3 Barron % (Auto) (4.8 - 9.0 %) 11.5 Eos % (Auto) (0.3 - 3.7 %) 2.3 Baso % (Auto) (0.0 - 2.0 %) 0.7 Neut # (Auto) (2.0 - 7.6 x10 3/uL) 4.24 Lymph # (Auto) (1.0 - 3.8 x10 3/uL) 0.46 Barron # (Auto) (0.1 - 0.8 x10 3/uL) 0.64 Eos # (Auto) (0.0 - 0.2 x10 3/uL) 0.13 Baso # (Auto) (0.0 - 0.2 x10 3/uL) 0.04 Abs Immat Gran (auto) (0.00 - 0.03 x10 3/uL) 0. 05 Add Manual Diff NO Immature Gran % (0.0 - 2.0 %) 0.9 Nucleated RBC % (0 - 0 %) 0.0 Nucleated RBCs # (Man) (0.0 - 0.1 x10 3/uL) 0.0 0 Diagnosis, Assessment Plan Diagnosis, Assessment Plan Problem List/A P: 1. Critical illness myopathy 2. CAD (coronary artery disease) 3. Severe mitral regurgitation 4. Constrictive pericarditis 5. S/P CABG x 1 6. S/P MVR (mitral valve replacement) 7. Immunosuppressed status 8. RONA on CPAP 9. Chronic a-fib 10. Crohn disease 11. Morbid obesity 12. Respiratory failure with hypoxia 13. Acute blood loss anemia 14. Generalized weakness 15. Impaired functional mobility, balance, gait , and endurance Free Text A P: Assessment: Critical illness myopathy Constrictive pericarditis Severe mitral regurgitation CAD 10/7: Status post CABG x1 (ROBERTS to LAD), ILAp, p ericardectomy 12/19: S/p MVR 01/06: Echo-EF 55-59%, normally functioning MV b ioprosthesis Chronic AF, s/p PPM/ablation-rate controlled-pac ed Volume overload-improved Lymphedema Generalized weakness Deconditioning Acute blood loss anemia Hypertension Morbid obesity RONA HLD Crohn's disease Hypoxic respiratory failure Hypokalemia/hypomagnesemia secondary to diuretic s MARCELLO resolved Significant impaired ADLs, mobility, gait, marian ce and endurance Plan: -Comprehensive inpatient rehabilitation with physical, occupational and speech therapy 3 hours a day for 5 to 6 days per week-2 06/19 rehabilitation physician supervision-05/10 rehabilitation nursing care. -Case management for safe discharge planning. -Rehab MD to monitor comorbidities and functiona l progress. -Decubitus prevention-protective hydrating lotio n-turn every 2 hours-offload -Bowel program -Nutrition, monitor the michael ent's p.o. intake, check albumin 3.5 and prealbumin, dietary consult, protein supplements. -Strict fall and safety precaution -DVT prophylaxis-SCDs -GI prophylaxis-Protonix -Glycemic control-continue insulin-monitor blood sugars-as per medicine -MARCELLO-resolved -Respiratory insufficiency-wean O2-postop pulmon shruthi protocol, encourage I-S, deep cough and breathing exercises, CPAP at nigh t, slowly improving -CAD s/p CABG, MVR, and ILAA-on DAPT post-op car e per CTS -Acute/chr AF s/p PPM/ablation. Rate controlled, paced rhythm-had ILAA during bypass, no need for AC-as per cardiology -Volume fjqymbpg-ospiespg-uq diuretics, strict I 's and O's Daily -HTN. BP stable-on metoprolol -HLD-On statins. -Crohn's disease. Per IM. -Early mobilization-OOB to chair -Work on bed mobility, transfer training , ADLs, pre-gait and gait exercises as tolerable. -Increase endurance and strength -Pain management -Consultants-cardiology, CVS, medicine, nephrolo gy -Labs reviewed-WBC normal, h emoglobin improved 8.7, platelets normal, potassium 3.0, creatinine 1.1, magnesium 1.83-replete pota ssium -Anemia-continue ferrous sulfate, B12, monitor H H -Monitor ofxaryvle-hlvpk-KP telemetry -Continue current medication -Strict sternal precautions -DOUGLASS and mild SOB at rest, work on improving end urance -ELOS: 12 days -GOALS: Modified -Patient medically ready to start IRF PM R Please see team note. Plan and goals discussed with the patient. I agree with the teams finding ELOS: [12 days] XF-qxvp-gfmtm with daughter-HH versus outpatient cardiac rehabilitation DME-pending TT 68 min>50% with discussing with patie nt and daughter about IRF ADMIT, rehab plan of care, goals, expectations, needs , and medical issues, examination. MAR and EMR reviewed. All Questions answered. Review of comorbidities: CAD, MITRAL VALVE REPLACEMENT 12/23, COR ONARY ARTERY BYPASS, Pericardiectomy., OBESITY, RONA, HTN, HLD, DIABETES, CROHN'S DISEAS E, CHRONIC A FIB, PACEMAKER, ANEMIA, HYPOXIC RESPIRATORY FAILURE, on BiPap Compare to PAS: POST ADMISSION PHYSICIAN EVALUATION ASSESSMENT: 1. Comparison of findings with the pread mission assessment are compatible with the post admission physician evaluation. 2. Review of the patient's prior and cur rent medical and functional conditions have been extensively reviewed and documented i n this H P, and discussed with the referring physicians, patient and family. A t this time, there has been no change in the patient's current medical or func tional conditions and plans to go ahead with rehab are to begin today. Estimated length of stay: 12 days Orders: Procedure Date/time Status Nutritional Supplements 01/08 1318 Active Telemetry Discontinue 01/08 1207 Complete Stockings: Antiembolism 01/08 0728 Active Elevate Extremity 01/08 0728 Active Incentive Spirometry: Nursing 01/08 0636 Active _RT: OXYGEN THERAPY 01/08 0305 Active NEB TREATMENT SUBSQ 01/08 0246 Active OXYGEN PER HOUR 01/08 0108 Complete CPAP/BIPAP ADULT/CHILD 01/08 0108 Complete NEB TREATMENT SUBSQ 01/07 2359 Complete OXYGEN PER HOUR 01/07 2200 Complete CPAP/BIPAP ADULT/CHILD 01/07 2200 Complete Consultants: cardiology, cardiovascular surgery, hospitalist, nephrology Plan discussed with: patient, nurse, interdisc c are team Time spent: Time spent on patient care (minutes): 69 >50% spent on counseling/coordination of care: yes Code Status/Resusc. Discussion Resuscitation discussion: Discussed with: patient Code status: full code Acute Rehab Attestation NOTE Attestation is for MD only Rehab MD attestation: Based upon my evaluation, the patient's medical management and rehabilitation needs require an inpatient stay and close physic donna involvement. Patient can be expected to actively participate in, and benefit from, an intensive rehab therapy prog my whose intensity is not provided in lower levels of care. Significant barriers that can only be addressed in an acute inpatient rehab program, including, but not limited to: Date of onset: 12/17/21 Current surgery date and type: MITRAL VALVE REPL ACEMENT 12/23 CORONARY ARTERY BYPASS X1 12/23 PERICARDIECTOMY 12/23/21 ARTERIA L LINE PLACEMENT 12/24 Active comorbid conditions: CAD, MITRAL VALVE REPLACEMENT 12/23, CORONARY ARTERY BYPASS, Pericardiectomy., OBESITY, RONA, HTN, HLD , DIABETES, CROHN'S DISEASE, CHRONIC A FIB, PACEMAKER, ANEMIA, HYPOXIC RESPIR ATORY FAILURE, on BiPap Past medical and surgical hi story: 1. Mitral valve replacement (31 Magna valve) . 2. Coronary artery bypass graft surgery x1 (LI MA to LAD). 3. Isolation of left atrial appendage. 4. Pericardiectom y. MILD RIGHT PLEURAL EFFUSION macular degeneration, obesity, RONA, hypertension, hyperl ipidemia, diabetes, Crohn's disease, chronic atrial fibrillation, pa cemaker placement, cardiac ablation x3 who had a cardiac cath revealing multivessel CAD . Clot degeneration Obstructive sleep apnea Chron's disease ANEMIA Had major surgery within 100 days of admission: Yes Risk for medical/clinical complications: Anemia, Arrhythmia, Aspiration, BP fluctuation, Blood sugar fluctuation, Cardiac in stability, Constipation, DVT, Depression, Electrolyte imbalance, Hypoxia, Inci sional dehiscence, Infection, Injury d/t falls, Nutritional compromise, Pain, Renal insuff/failure, Skin breakdown, Urinary retention, Respiratory insuff iciency. Complex acute rehab needs: Custom therapy tx vicki n, Mgt of complex Co-morb, Multiple consulting MDs, New medical diagnosis, Hospitalist consult at 1353 RPT #:[id number] END OF REPORT 2022-01-07 20:55:00-00:00 [facility] REPORT#:[id number] REPORT STATUS: Signed DATE:01/07/22 TIME: 2054 PATIENT: SAÚL GILES UNIT #: [id number] ROOM/BED: 3363-1 : 43 AGE: 76 SEX: F ATTEND: Ayala More MD ADM AUTHOR: Suki Fuchs MD * ALL edits or amendments must be made on the [employer]/computer document * Subjective Chief complaint: chest pain HPI: This is a 76-year-old female who has past medica l history of hypertension, diabetes, coronary artery disease, atrial fibril lation who presented with worsening shortness of breath and on further wor k-up was 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 She was with normal kidney function prior to surgery and afte r her surgery she began to develop oliguria. Her procedure was done without any complications but after her surgery she did require pressor support for hypotension and she was intubated for respiratory acidosis and hypoxia a nd she was treated with vancomycin for infection treatment. When she was seen this morning she continued to have hypotension and her heart rate was paced by her permanent pacemaker and her urine outp ut was 20 to 30/h. Her family at bedside denied any history of kidney disease, kidney stone, chronic NSAID use or any urinary complaints. They also endorse that her b lood pressure and diabetes were mostly controlled. 01/07 Looking comfortable, tolerating orally.Walking w ith no difficulty. Objective General VS/I O: Vital Signs: Date Time Temp Pulse Resp B/P B/P Pulse O2 O2 F low FiO2 Mean Ox Delivery Rate 01/07 1749 36.7 76 19 126/76 92.4 98 Nasal cannula 01/07 1530 100 Nasal 3 32 cannula 01/07 1335 100 Nasal 2 cannula 01/07 1205 36.5 70 15 139/76 97.0 100 Nasal cannula 01/07 0938 71 15 155/70 101 92 01/07 0835 95 Nasal 3 32 cannula 01/07 0814 36.7 70 19 146/83 103.8 91 Nasal cannula 01/07 0800 Nasal 3 cannula 01/07 0408 36.5 73 17 140/82 101.1 100 01/07 0249 76 95 40 01/06 2336 36.7 73 18 138/90 106.2 97 01/069 36.8 71 22 140/76 97.4 100 01/06 2100 Nasal 3 40 cannula 24 hour I O ending at 0700: 01/07 0700 01/06 1900 Intake Total 450 800 Output Total 750 1890 Balance -300 -1090 Intake, Oral 450 800 Number Voids 1 Output, Urine 750 1890 Patient 120.4 kg Weight Weight Bed scale Measurement Method PATIENT WEIGHT: Weight (lb): 265 Weight (oz): 6.98 Weight (kg): 120.400 Physical Exam General appearance: alert, awake, oriented Head/eyes: atraumatic, normocephalic ENT: moist mucous membranes, normal nose Neck: no JVD, no lymphadenopathy Cardiovascular: normal heart sounds, regular rat e and rhythm Respiratory: aerating well, clear to auscultatio n Abdomen: soft, no pulsatile mass Genitourinary: urinary catheter Extremities: no gangrene, no swelling Treatment Prophylaxis Treatment Prophylaxis Drain(s)/tube(s): Drain(s)/tube(s): chest (x3) Diagnosis, Assessment Plan Free Text A P: This is a 76-year-old female known to have hyper tension, diabetes, atrial fibrillation, s/p permanent pacemaker and histor y of ablation presenting with shortness of breath and found to have multivesse l coronary artery disease therefore she had CABG on December 19 after which she has developed oliguria. Nephrology is following for: 1. Acute kidney injury: Most likely it i s prerenal (cardiorenal), she has been hypotensive postoperatively with require ment for pressor support and inotropic support. Plan is to increase inotropic support or pressor support to bring mean arterial pressure above 65 and give albumin with Lasix to see if it helps him diurese. If he does not respond to higher dose L asix with albumin then I will consider starting him on CRRT to prevent hyper v olemia. 2. Hypervolemia: Plan is to give Lasix a nd if he does not respond to start him on CRRT for extra fluid removal. 3. His electrolytes were all reviewed to be in normal range plan was to monitor and replace as needed. 4. He was receiving vancomycin so plan w as to monitor vancomycin trough levels to prevent ATN. 5/ Metabolic alkalosis secondary to diur etics : Plan to give acetazoleamide if worsening. . 01/02 1. Acute kidney injury: Resolved, she is respond ing to lasix. 2. Hypervolemia: Plan to continue lasix as tolerated.Today she was on low dose daily lasix. 3. Hypokalemia/hypomagnesemia:secondary to diure tics, plan was to monitor and replace as needed. 4. Metabolic alkalosis secondary to diuretics : acetazoleamide [id number] 01/03 1. Acute kidney injury: Resolved, she is respond ing to lasix. 2. Hypervolemia: Plan to continue lasix as tolerated.Today she was on low dose daily lasix. 3. Hypokalemia/hypomagnesemia:secondary to diure tics, plan was to monitor and replace as needed. 4. Metabolic alkalosis secondary to diuretics : acetazoleamide continued. Plan was to continue same as patient stable from volume and electrolyte standpoint. 01/04 1. Acute kidney injury: Resolved, she is respond ing to lasix. 2. Hypervolemia: Plan to continue lasix as tolerated.Today she was on low dose daily lasix. 3. Hypokalemia/hypomagnesemia:secondary to diure tics, plan was to monitor and replace as needed. 4. Metabolic alkalosis secondary to diuretics : acetazoleamide continued. Plan was to continue same as patient stable from volume and electrolyte standpoint. 01/05 1. Acute kidney injury: Resolved, she is respond ing to lasix. 2. Hypervolemia: Plan to continue lasix as tolerated.Today she was on low dose daily lasix. 3. Hypokalemia/hypomagnesemia:secondary to diuretics, plan was to monitor and replace as needed. 4. Metabolic alkalosis secondary to diuretics : acetazoleamide continued. Plan was to continue same as patient stable from volume and electrolyte standpoint. 01/06 1. Acute kidney injury: Resolved, she is respond ing to lasix. 2. Hypervolemia: Plan to continue lasix as tolerated.Today she was on low dose daily lasix.Switched IV to PO as she should resp ond to both at current volume status. 3. Hypokalemia/hypomagnesemia:secondary to diure tics, plan was to monitor and replace as needed. 4. Metabolic alkalosis secondary to diuretics : acetazoleamide continued. 01/07 1. Acute kidney injury: Resolved, she is respond ing to lasix. 2. Hypervolemia: Plan to continue lasix as tolerated.Today she was on low dose daily lasix.Switched IV to PO as she should resp ond to both at current volume status. 3. Hypokalemia/hypomagnesemia:secondary to diure tics, plan was to monitor and replace as needed. 4. Metabolic alkalosis secondary to diuretics : acetazoleamide continued. Consultants: cardiology, cardiovascular surgery, critical/hired help Electronically Signed by Suki Fuchs MD on at 2057 RPT #:[id number] END OF REPORT 2022-01-07 18:31:00-00:00 [facility] Cardiothoracic Surgery Prog REPORT#:[id number] REPORT STATUS: Signed DATE:01/07/22 TIME: 1830 PATIENT: SAÚL GILES UNIT #: [id number] ROOM/BED: [place] [address] : 43 AGE: 76 SEX: F ATTEND: Leah More MD ADM AUTHOR: Kena Macedo * ALL edits or amendments must be made on the [employer]/computer document * General Status post: 1. Mitral valve replacement (31 Magna valve). 2. Coronary artery bypass graft surgery x1 (GOMES A to LAD). 3. Isolation of left atrial appendage. 4. Pericardiectomy. Subjective Chief complaint: Follow up MVR Review of Systems Constitutional: Denies: fever, malaise. Allergy/Immun: Denies: allergic reaction. ENT: Denies: sore throat. Respiratory: Denies: SOB. GI: Denies: abdominal pain. Heme: Denies: bleeding. Neuro: Denies: focal weakness, headache. All systems rev neg: except as marked Objective General VS/I O Last Documented: Result Date Time Pulse Ox 98 01/07 1749 B/P 126/76 01/07 1749 B/P Mean 92.4 01/07 1749 O2 Delivery Nasal cannula 01/07 1749 Temp 98.1 10/26 1749 Pulse 76 01/07 1749 Resp 19 01/07 174 FiO2 32 01/07 1530 O2 Flow Rate 3 01/07 1530 24 hour I O ending at 0700: 01/07 0700 01/06 1900 Intake Total 450 800 Output Total 750 1890 Balance -300 -1090 Intake, Oral 450 800 Number Voids 1 Output, Urine 750 1890 Patient 265 lb Weight Weight Bed scale Measurement Method PATIENT WEIGHT: Weight (lb): 265 Weight (oz): 6.98 Weight (kg): 120.400 Physical Exam General appearance: alert, oriented, mental stat us normal, no respiratory distress Wound/incision: Location: sternal Site condition: edges approximated, incision in tact, no drainage HEENT: anicteric Neck: supple/no meningismus Cardiovascular: normal heart sounds, regular rat e rhythm Respiratory: aerating well, symmetric expansion, no distress Abdomen: soft, non-tender Extremities: moves all 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, 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, normal speech Skin: dry, intact, normal temperature Psychiatry: normal affect, normal mood Current Medications Medications: Active Meds + DC'd Last 24 Hrs Acetazolamide (DIAMOX) 250 MG DAILY PO Furosemide (LASIX) 40 MG DAILY PO Metoprolol Tartrate (LOPRESSOR) 25 MG Q12HR PO Sterile Water (WATER FOR INJECTION) 5 ML ASDIR P RN IV Potassium Chloride (POTASSIUM CHLORIDE 20MEQ TAB .ER) 40 MEQ DAILY PRN PRN PO Insulin Glargine (Lantus/Semglee) 30 UNIT DAILY SUBQ Insulin Glargine (Lantus/Semglee) 20 UNIT BEDTIM E SUBQ Insulin Human Lispro (HUMALOG) 0 AC HS SUBQ Dextrose/Water (DEXTROSE 10% IN WATER) 125 ML DIR PRN IV (CKD) Dextrose/Water (DEXTROSE 10% IN WATER) 250 ML DIR PRN IV (CKD) Glucagon (GLUCAGON) 1 MG ASDIR PRN IM Amiodarone HCl (CORDARONE) 200 MG BID PO Sterile Water (WATER FOR INJECTION) 5 ML ASDIR P RN IV Sterile Water (WATER FOR INJECTION) 5 ML ASDIR P RN IV Sodium Chloride (SODIUM CHLORIDE) 4 ML RTBID NEB Melatonin (Melatonin) 3 MG BEDTIME PO Sodium Chloride (SODIUM CHLORIDE) 10 ML BID IV Sodium Chloride (SODIUM CHLORIDE) 10 ML ASDIR NE N IV Pantoprazole (PROTONIX) 40 MG DAILY PO Dexmedetomidine/Sodium Chloride (PRECEDEX 1000MC G/NS 250ML) 250 ML ASDIR IV Bisacodyl (DULCOLAX) 10 MG DAILY PRN PRN RECTAL Lactulose (LACTULOSE) 20 GM DAILY PRN PRN PO Magnesium Hydroxide (MILK OF MAGNESIA) 30 ML PETER LY PRN PRN PO Aspirin (ASPIRIN) 81 MG DAILY PO Clopidogrel Bisulfate (Plavix) 75 MG DAILY PO Cyanocobalamin (Vitamin B-12 500 mcg tab) 500 MC G DAILY PO Ferrous Sulfate (FERROUS SULFATE) 325 MG DAILY P O Metolazone (metOLazone) 5 MG DAILY PO Polyethylene Glycol (MIRALAX) 17 GM DAILY PO Atorvastatin Calcium (LIPITOR) 40 MG 2100 PO Docusate Sodium (DOCUSATE SODIUM) 100 MG BID PO Senna (SENOKOT) 17.6 MG BEDTIME PO Acetaminophen (TYLENOL) 650 MG Q4H PRN PRN PO Acetylcysteine (MUCOMYST FOR RT) 200 MG RTQ6H NE B Albuterol/Ipratropium (DUONEB) 3 ML RTQ6H NEB Bisacodyl (DULCOLAX) 10 MG ONCE PRN RECTAL Dopamine HCl/Dextrose (DOPamine 400MG/D5W 250ML) 250 ML ASDIR IV Milrinone Lactate/Dextrose (MILRINONE 20MG/D5W 1 00ML) 100 ML ASDIR IV ( CKD) Vasopressin (VASOSTRICT 20 Unit/NS 100ML) 100 ML ASDIR IV (CKD) Acetaminophen (TYLENOL) 650 MG Q4H PRN PRN RECTA L Calcium Chloride (CALCIUM CHLORIDE) 1 GM ASDIR P RN IV Magnesium Sulfate (MAGNESIUM SULFATE 4GM/SWFI 10 0ML) 100 ML ASDIR PRN IV Magnesium Sulfate (MAGNESIUM SULFATE 2GM/SWFI 50 ML) 50 ML ASDIR PRN IV Magnesium Sulfate/Dextrose (MAGNESIUM SULFATE 1G M/D5W 100ML) 100 ML ASDIR PRN IV Nitroglycerin/Dextrose (NITROGLYCERIN 50,000MCG/ D5W 250ML) 250 ML ASDIR IV Norepinephrine Bitartrate (NOREPINEPHRINE 8 MG/N S 250 ML) 250 ML TITRATE IV Potassium Chloride (KCL 20MEQ/SWFI 100ML) 100 ML ASDIR PRN IV Sodium Bicarbonate (SODIUM BICARBONATE) 50 MEQ A SDIR PRN IV Ondansetron HCl (ZOFRAN) 4 MG Q6H PRN PRN IV Results Findings/Data: Laboratory Tests 01/07 01/07 01/07 01/07 01/06 1747 1204 0816 0605 2120 Chemistry Sodium (134 - 147 mEq/L) 141 Potassium (3.4 - 5.0 mEq/L) 3.5 Chloride (100 - 108 mEq/L) 100 Carbon Dioxide (21 - 33 mEq/l) 34 H Anion Gap (0 - 20) 11 BUN (7 - 18 mg/dL) 23 H Creatinine (0.6 - 1.3 mg/dL) 0.9 Glomerular Filtr Rate (70 - 80) 60.6 L Glucose (70 - 110 mg/dL) 90 POC Glucose (70 - 110 MG/DL) 194 H 176 H 84 119 H Calcium (8.0 - 10.5 mg/dL) 9.1 Laboratory Tests 01/07 0940 Serology SARS-CoV-2 Ag (Rapid) (Negative) Negative Diagnosis, Assessment Plan Free Text A P: Ambulate Encourage incentive spirometry Diuresis per nephrology Discharge planning 01/05 Patient is sleepy but arousable and oriented. Respiratory support with nasal cannula 2 L. Wean to keep O2 sats greater 90% Echo to rule out pericardial effusion BLE venous Doppler to rule out DVT Diuresis per nephrology. Electrolytes replaced Hopefully she can transfer to rehab tomorrow 01/06 Doing well, awake, no acute distress Remains on nasal cannula 3 L. O2 sats are 100%, wean O2 as tolerated Echocardiogram showed EF 55 to 59% BLE venous doppler negative for DVT Awaiting transfer to rehab 01/07 Patient remains in a stable condition, awaiting transfer to rehab O2 requirements decreased to 1 to 2 L Encourage I-S and ambulation Replace electrolytes Continue diuresis by nephrology Will continue to follow in rehab Consultants: cardiology, cardiovascular surgery, critical/hired help at 1318 at 1032 RPT #:[id number] END OF REPORT 2022-01-07 14:08:00-00:[address] [facility] ([facility] Rehab Preadmission Screen REPORT#: REPORT STATUS: DATE:01/07/22 TIME: 1408 PATIENT: SAÚL GILES UNIT #: ROOM: BED: : 43 AGE: 76 SEX: F ATTEND: Shaun Landry MD PROJECTED ADM AUTHOR: Katlin Major MD REP SRV REP SRV TM: 1408 * ALL edits or amendments must be made on the el ectronic/computer document * IRF Preadmission Screen Information From CRS PAS CRS PAS documentation: The data set between the solid lines has been im ported from CRS PAS documentation. PREADMISSION INFORMATION: DEMOGRAPHICS: Assessment date: 12/30/21 Assessment time: 110 Patient has an Advanced Directive: No Content of advance directive/living will/plan of care: Copy of advance directive on chart: Referring physician: DR. ALVA Primary care provider: DR. ABDIAZIZ FUCHS Consulting physician(s): DR. LANDRY REHAB DR. FUCHS PRIMARY DR. MORE ATTENDING DR. VAIL MEDICAL DR. DAVID LYNN MEDICAL DR. ROMERO SURGICAL DR. CHAUDHRY MEDICAL Referral contact name: SAJAN DIOP Referral contact number: [phone] Referring setting: Acute hospital Room number: 3363 IMPAIRMENT GROUP: Impairment group: Neuromusc disorders Etiologic diagnosis: CIM REVIEW OF MED CONDITIONS: Date of onset: 12/17/21 Current surgery date and type: MITRAL VALVE REPL ACEMENT 12/23 CORONARY ARTERY BYPASS X1 12/23 PERICARDIECTOMY 12/23/21 ARTERIA L LINE PLACEMENT 12/24 Active comorbid conditions: CAD, MITRAL VALVE REPLACEMENT 12/23, CORONARY ARTERY BYPASS, Pericardiectomy., OBESITY, RONA, HTN, HLD , DIABETES, CROHN'S DISEASE, CHRONIC A FIB, PACEMAKER, ANEMIA, HYPOXIC RESPIR ATORY FAILURE, on BiPap Past medical and surgical hi story: 1. Mitral valve replacement (31 Magna valve) . 2. Coronary artery bypass graft surgery x1 (LI MA to LAD). 3. Isolation of left atrial appendage. 4. Pericardiectom y. MILD RIGHT PLEURAL EFFUSION macular degeneration, obesity, RONA, hypertension, hyperl ipidemia, diabetes, Crohn's disease, chronic atrial fibrillation, pa cemaker placement, cardiac ablation x3 who had a cardiac cath revealing multivessel CAD . Clot degeneration Obstructive sleep apnea Chron's disease ANEMIA Had major surgery within 100 days of admission: Yes Risk for medical/clinical complications: Anemia, Arrhythmia, Aspiration, BP fluctuation, Blood sugar fluctuation, Cardiac in stability, Constipation, DVT, Depression, Electrolyte imbalance, Hypoxia, Inci sional dehiscence, Infection, Injury d/t falls, Nutritional compromise, Pain, Renal insuff/failure, Skin breakdown, Urinary retention, Respiratory insuff iciency Acute hospital stay summary: This is a [age]-year-old female who has past medical history of hypertension, leonela betes, coronary artery disease, atrial fibrillation who presented with worsening shortness of breath and on further work-up was found to have 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 She was with normal kidney function prior to surgery and after her surgery she began to develop oliguria. H er procedure was done without any complications but after her surgery she did require pressor suppor t for hypotension and she was intubated for respiratory acidosis and hypoxia a nd she was treated with vancomycin for infection treatment. When she was seen this morning she continued to have hypotension and her heart rate was paced by her permanent pacemaker and her urine outp ut was 20 to 30/h. Her family at bedside denied any history of kidney disease, kidney stone, chronic NSAID use or any urinary complaints. They also endorse that her b lood pressure and diabetes were mostly controlled. Pt underwent MVR, CABG x 1, ILLAA, p ericardectomy 12/19/[address] Romero. Pt developed critical illness m yopathy and is progressing slowly with therapy d/t weakness, self care deficit, decreas ed endurance and balance, and decreased functional mobility. Pt requiring acut e inpt rehab for multidisciplinary team of nursing, therapy, and physicians. Pt is willing and able to participate in 3 hr/day inpt rehab to re turn home safely. Pt's prior level of function was Mod I and sometimes used R W. PREADMIT VITALS: Date/Time 01/07/22 0408 01/05/22 0058 Temp F Temp C 36.5 36.4 Pulse 73 72 RR 17 16 BP 140/82 135/76 SPO2% 100 94 Ht ft 5 Ht in 4 Wt lbs 276.000 BMI SUPPORTING DIAGNOSTICS/LABS/RADIOLOGY/CARDIOLOGY : Date: 01/05/22 01/04/22 01/06/22 WBC: 7.0 7.3 5.7 HGB: 8.3 8.1 8.1 HCT: 26.4 24.0 25.6 Ca: 9.4 9.8 9.4 Na: 145 144 143 K+: 3.3 3.5 3.2 Glu: 259 103 115 M.91 2.02 BUN: 26 26 29 Creat: 1.0 0.9 1.1 Tot protein: Alb: PTT: PT: INR: PLT: 230 255 244 Additional labs: Cultures: 12/18/21 URINE YEAST 12/17/21 MRSA NEG ATIVE Imagin01/04/22 CXR IMPRESSION: Mild worsening right basilar opacities. Otherwise, stable exam. 01/03/22 CXR IMPRESSION: 1. Unchanged multifocal patchy bilateral airspace d isease in the left lung base and right mid and lower lung. 2. Unchanged small bilateral pleural effusions. 01/02/22 CXR IMPRESSION: No acute fin dings. Unchanged study. 12/31/21 CXR IMPRESSION: 1. St able pulmonary opacities with multifocal consolidatio n and or atelectasis. 2. Stable pleural effusions. 3. Stable postoper ative cardiomediastinal silhouette. 12/30/21 IMPRESSION: 1. Bilateral mu ltifocal ground- glass pulmonary opacities with associated inters titial septal thickening. Edema and inflammation in the differential. Imag ing features can be seen with COVID-19 pneumonia, though are nonspecific and can occur with a variety of infectious and noninfectious processe s. (Reference: Michael) 2. Partial atelectasis of the lower lobes with additional foci of subsegmental atelectasis and or consolidation. 3 . Small bilateral pleural effusions. 4. Postoperative changes of CABG. Sta ble cardiomegaly. Trace pericardial fluid. Small volume anterior medias tinal hematoma/seroma. 12/23/21 ABD XRAY IMPRESSION: 1. A nasogastric t ube terminates overlying the stomach. 2. Dilated small bowel lo ops in the left lower quadrant MISCELLANEOUS U/S IMPRESSION: Minimal l eft and mild right pleural effusions. 12/21/21 RETROPERITONEU M U/S IMPRESSION: Limited exam. No sonographic abnormality of the kidneys. 12/20/21 CXR IMPRESSION: Stable radiographic appearance of th e chest. 12/17/21 DOPPLER U/S IMPRESSION: Greate 01/06/22 doppler u/s IMPRESSION: No evidence of deep vein thrombosis. r saphenous vein is patent. Vein mapping as described. 12/17/21 GONZALEZ TID DOPPLER IMPRESSION: No flow-limiting proximal internal c arotid arterial stenosis. 12/17/[address] IMPRESSION: 1. There is a 2 le ad cardiac pacemaker with control in the left chest. The le ads terminate in the regions of the right cardiac ventricle and coron shruthi sinus. There is a severe burden of three-vessel coronary artery at herosclerotic vascular calcification. There is cardiomegaly. There is no pericardial effusion. 2. There is mild interstitial pulmonary edema. There is pulmonary atelectasis but no evidence of pneumonia. CXR IMPRESSION: Cardiomegaly with minimal central venous conges tion. Other supporting diagnostics: BIPAP RESPIRATORY STATUS: Respiratory treatments: Oxygen, Incentive spirom eter, Nebulizer O2 liters per minute: 3 Respiratory status: NASAL CANNULA OBSTRUCTIVE SL EEO APNEA NEUROLOGIC STATUS: Neurologic status: Alert, Oriented to person, Or iented to place, Oriented to time Patient's mood and behavior: Appropriate Hand dominance: Right BOWEL/BLADDER: Continent of bladder for developmental age: Yes Number of bladder accidents in last 48 hours: Catheter type: Insertion date: Bladder aids: Bladder comment: Continent of bowel for developmental age: Yes Number of bowel accidents in last 48 hours: Date of last BM: 01/05/22 Colostomy: Ileostomy: Bowel aids: Bowel comment: SKIN: Skin alteration: Present/Exists SKIN ALTERATION 1: Type: Wound Location: Generalized Stage: Description: - - SKIN COLOR - - Color within expectations for ethnicity: Yes Sk in turgor-tenting less than 1 second: Yes - - SKIN PIERCINGS - - Skin piercings: None - - SKIN ALTERATION - - Skin alteration/Procedure site: Present/Exists Skin alteration: - - Procedural site Anterior Chest m idline - - Instance list status: Active Related clinical factors: Procedure related Tissue type-worst: Edges approximated Wound base visible: Yes Intact skin: Yes Intact skin blanchable: Yes Any open areas: No Altered level/stage: Closed Document advanced wound measurements: No cm2 area: Cannot Calculate Area Yet Intact value score: 0 ---- - - Puncture site Anterior UPPER ABDOMEN S/P CHEST TUBES - - Instance list status: Active Related clinical factors: Procedure related Tissue type-worst: Dressing intact/device Document advanced wound measurements: No cm2 area: Cannot Calculate Area Yet Worst tissue type score: 0 Intact value score: 0 ---- - - Excoriation Abdomen left lower quad - - Instance list status: Inactive Tissue type-worst: Normal/skin closed/scar Wound base visible: No Intact skin: Yes Intact skin blanchable: Yes Any open areas: No Altered level/stage: Closed Document advanced wound measurements: No cm2 area: Cannot Calculate Area Yet Worst tissue type score: 0 Intact value score: 0 --- - - Excoriation Medial RIGHT GROIN - - Instance list status: Inactive Related clinical factors: Moisture related Tissue type-worst: Normal/ skin closed/scar Wound base visible: No Intact skin: Yes Intact skin blanchable: Yes Any open areas: No Altered level/stage: Closed Document advanced wound measurements: No cm2 area: Cannot Calculate Area Yet Worst tissue type score: 0 Intact value score: 0 <End> Document skin test monitor: No - - VASCULAR - - - - CAP REFILL DELAY - - Capillary refill less than or equal to 3 seconds: Yes - - PERIPHERAL PULSE - - Pulses strong and equal bilaterally: Yes - - CALF INSPECTION - - Calves symmetrical and pain is absent with dorsi flexion: Yes - - PERIPHERAL EDEMA - - Peripheral edema: Present/Exists Peripheral edema location 1: Leg Peripheral edema location (L/R) 1: Bilateral COPIED FROM NURSE ASSESSMENT SKIN ALTERATION 2: Type: Location: Stage: Description: SKIN ALTERATION 3: Type: Location: Stage: Description: SKIN ALTERATION 4: Type: Location: Stage: Description: EATING/NUTRITIONAL: Nutritional intake: FLUID MODIFIER 1000, 1800 AD A Eating compensatory strategies: Medication administration: Subcutaneous, Topical s, Medications whole, IV REHAB NEEDS: Special rehabilitation needs: Respiratory therap y, O2, IV/PICC/CVC Special rehabilitation precautions: Safety/fall, Sternal, Diet, Cardiac, Aspiration Rehabilitation precaution detail: EXTRA PERSONNE LL STERNAL PRECAUTIONS FALLS, BIPAP CARDIAC ORTHOSTATIC B/P DIABETIC C PAP SUB CLAVIAN LEFT PACEMAKER w/c to follow pulmonary desats FUNCTIONAL ASSESSMENT: FUNC. TASK PRIOR LOF CURRENT LOF EXPECTED LOF Bathing Supervise/touch asst Supervise/touch ass t Independent U.B. Dressing Independent Substantial/max asst S upervise/touch asst L.B. Dressing Supervise/touch asst Substantial/m ax asst Supervise/touch asst Bed/Ch Transf. Independent Supervise/touch asst Independent Toilet Transfer Independent Supervise/touch asst Independent Stairs Supervise/touch asst Partial/moderate Set up/cleanup ONLY asst Locomotion Supervise/touch asst Supervise/touch asst Independent Locomotion prior device use: RW/FWW Description of prior level of locomotion: MOD I WITH RW Locomotion current device: RW/FWW Locomotion current distance traveled without a rest break: 36', 24', and 15 x 2 Description of current level of locomotion: REQU IRES EXTRA ENCOURAGEMENT TO COMPLETE TASK AND REQUIRES 4 /L O2 TO MAINTAIN STATS WITH MOBILITY/RW WITH W/C TO FOLLOW Description of expected level of locomotion: MOD I WITH WALKER Language and Cognition: A O X 3 Add'l functional comment: SIT/STAND MIN A extra time Prior device use: RW/Front wheeled walker Prior device use additional information: PRE-HOSPITAL: Pre-hospital services utilized: None Occupation/Profession: Retired Education history: Return to work/school plan: Marital status: Hobbies/leisure activities: Prior living situation: Home Living with: Family Living with comment: LIVES WITH DAUGHTER ANTICIPATED DC PLAN/POST IRF: Primary support contact: ARABELLA VEENA Relationship to patient: DAUGHTER Phone number 1: [phone] Phone number 2: Caregiver availability: Caregiver can provide: Patient/caregiver goals/preferences: Expected discharge destination: Home Expected discharge physical layout: One story, S hower only, Tub/shower combo Number of external stairs: Number of internal stairs: Railing details: Grab bars location: Barriers to discharge: Endurance Options discussed with patient: Yes Options discussed with caregiver: Yes Patient agrees with program requirements: Yes ACTIVITY TOLERANCE: Current treatment interventions: Occupational th erapy, Physical therapy, Respiratory therapy Patient able to tolerate 3 hours of therapy a da y: Yes Patient able to tolerate 15 hours of therapy a w [place]: Altered therapy schedule comment: ACUTE INPATIENT REHAB PLAN: Estimated length of stay in days: 12 Anticipated services in acute inpatient rehab: S ocial worker, Occupational therapy, Physical therapy, Dietitian, Respirator y therapy Acute hospital documents reviewed prior to admis alfred decision: Acute History/ Physical, Consult notes, Operative reports, Prog ress notes, Lab/diagnostics, Therapy notes, Vital signs, Other ancillary note s CRS ELECTRONIC SIGNATURE: CRS #1 electronic signature: BETTIE HO credentials: RN Date: 01/05/22 Time: 0651 CRS #2 electronic signature: BETTIE WALLACE CRS credentials: RN Date: 01/07/22 Time: 0535 CRS #3 electronic signature: [place] credentials: Date: Time: Provider Pre-Admit Summary Acute IP rehab admit: criteria met MD determination Based upon my evaluation and review of t supporting assessment documentation and consultation with the pr eadmission oyster farmer, I have determined, prior to admitting this patient, that there is r easonable expectation that at the time of admission to the IRF, the patient's medical management and rehabilitation needs require an inpatient stay and close physician involvement. Patient can be expected to actively participate in, and benefit from, and intensive rehab therapy prog my whose intensity is not provided in lower levels of care. Significant barriers that can only be addressed in an acute inpatient rehab program, including, but not limited to: Complex acute rehab needs: Custom therapy tx vicki n, Mgt of complex Co-morb, Multiple consulting MDs, New medical diagnosis, Hospitalist consult at 1410 RPT #:[id number] END OF REPORT 2022-01-07 12:20:00-00:[address] [facility] ([facility] Hospitalist Discharge Summary REPORT#:[id number] REPORT STATUS: Signed DATE:01/07/22 TIME: 1220 PATIENT: SAÚL GILES UNIT #: [id number] ROOM/BED: [place] [address] : 43 AGE: 76 SEX: F ATTEND: Leah More MD ADM AUTHOR: Meryl Rosa MD * ALL edits or amendments must be made on the [employer]/computer document * General Information Date of admission: Observation Start Date: Date of admission: 12/17/21 Discharge date: 01/07/22 Admission diagnosis: CAD -- multiple vesssels HTN DM HLD Crohn's disease chronic atrial fibrillation status post 3 ablat ions macular degeneration obesity obstructive sleep apnea acute respiratory failure --post surgery severe mitral valve regurgitation constrictive pericarditis Discharge diagnosis: CAD -- multiple vesssels HTN DM HLD Crohn's disease chronic atrial fibrillation status post 3 ablat ions macular degeneration obesity obstructive sleep apnea acute respiratory failure --post surgery severe mitral valve regurgitation constrictive pericarditis Hospital course: CAD -- multiple vesssels HTN DM HLD Crohn's disease chronic atrial fibrillation status post 3 ablati ons macular degeneration obesity obstructive sleep apnea acute respiratory failure --post surgery severe mitral valve regurgitation constrictive pericarditis CAD -- cardiology consult CV surgeon consult CABG -- AM ASA/lipitor afib -- rate control -- hold xarelto for surgery HTN-- continue home med DM-- on lantus -- sliding scale HLD-- on lipitor RONA--cpap as need DVTP -- heparin 12/18- feel sob -- CABG -- afternoon 12/19--post MVR (31 Magna valve), CABG x 1 (ROBERTS- LAD), ILAA and pericardectomy -- she remain intubated on the vent -- chest tube are in place -on levophed and epinephrine drip -- monitor in CCU 12/20- she was extubated --on bipap now -- NPO --off Levophed/epinephrine, continue vasopressi n, inotropes with milrinone, -- chest tube remain in place -- she is stable post surgery 12/21-- she is on high flow O2 -- edema --lasix --chest tube in place --- she is hemodynamic stable -- continue monitor in CCU 12/22- she remain on high O2 CXR show worsening pulmonary venous vascular c ongestion. --lasix iv tid -- chest tube are out -- off drips -- NPO -- start TPN -- continue monitor in CCU 12/23- she remain on high flow O2 --less edema -- on TPN -- she is hemodynamic stable -- continue monitor in CVICU 12/24- she get better -- she is out bed and sit on the chair -- start ambulate with PT -- continue current management 12/25- she is doing well with PT remain on o2 continue iv lasix / add diamox continue supportive care continue monitor in CVICU 12/26- she is on bipap -- she remain sob and edema -- may start lasix drip as nurse -- continue supportive care 12/27 On lasix and insulin drips. Back on lantus dose BID, trend glucose. Continue PT/OT. 12/28 Increase lantus BID. 12/29-- she remain on bipap -- sob and edema --lasiv and diamox iv bid -- FS -- better control -- continue monitor in CVICU 12/30- she improve --less sob and edema -- she tolerance diet -- continue lasix -- continue PT/OT 12/31-- less sob and edema - -- ABG -- review -- improve -- continue lasix -- CM --LTAC evaluation 01/01- she improve now --she is on O2 -- NC 2 --lasix 40 mg iv qd -- continue PT/OT -- rehab placement as rehab 01/03 -- she feel tire . less sob -- no bed in rehab now -- continue monitor in the hospital -- rehab placement -- bed may be avalaible nest tursday as CM -- continue PT/OT -- replace K 01/04-- she is weak . she still feel sob -- continue PT/OT -- rehab --pending bed 01/05 Potassium low, replace, labs AM. Continue PT/OT and await placement. 01/06- replace K -- continue PT/OT -- rehab placement --pending she is stable to discharge to rehab . Consultants: cardiology, cardiovascular surgery, critical/hired help Free Text DxA P Notes Free text DxA P notes: 76 years old female with PMH of macular degeneration, obesity, obstructive sleep apnea (CPAP at home), former smoker, hypertensio n, hyperlipidemia, diabetes, Crohn's disease, chronic atr ial fibrillation status post 3 ablations in the past (on Xarelto), pacemaker placement CAD -- multiple vesssels HTN DM HLD Crohn's disease chronic atrial fibrillation status post 3 ablati ons macular degeneration obesity obstructive sleep apnea acute respiratory failure --post surgery severe mitral valve regurgitation constrictive pericarditis CAD -- cardiology consult CV surgeon consult CABG -- AM ASA/lipitor afib -- rate control -- hold xarelto for surgery HTN-- continue home med DM-- on lantus -- sliding scale HLD-- on lipitor RONA--cpap as need DVTP -- heparin 12/18- feel sob -- CABG -- afternoon 12/19--post MVR (31 Magna valve), CABG x 1 (ROBERTS- LAD), ILAA and pericardectomy -- she remain intubated on the vent -- chest tube are in place -on levophed and epinephrine drip -- monitor in CCU 12/20- she was extubated --on bipap now -- NPO --off Levophed/epinephrine, continue vasopressi n, inotropes with milrinone, -- chest tube remain in place -- she is stable post surgery 12/21-- she is on high flow O2 -- edema --lasix --chest tube in place --- she is hemodynamic stable -- continue monitor in CCU 12/22- she remain on high O2 CXR show worsening pulmonary venous vascular co ngestion. --lasix iv tid -- chest tube are out -- off drips -- NPO -- start TPN -- continue monitor in CCU 12/23- she remain on high flow O2 --less edema -- on TPN -- she is hemodynamic stable -- continue monitor in CVICU 12/24- she get better -- she is out bed and sit on the chair -- start ambulate with PT -- continue current management 12/25- she is doing well with PT remain on o2 continue iv lasix / add diamox continue supportive care continue monitor in CVICU 12/26- she is on bipap -- she remain sob and edema -- may start lasix drip as nurse -- continue supportive care 12/27 On lasix and insulin drips. Back on lantus dose BID, trend glucose. Continue PT/OT. 12/28 Increase lantus BID. 12/29-- she remain on bipap -- sob and edema --lasiv and diamox iv bid -- FS -- better control -- continue monitor in CVICU 12/30- she improve --less sob and edema -- she tolerance diet -- continue lasix -- continue PT/OT 12/31-- less sob and edema - -- ABG -- review -- improve -- continue lasix -- CM --LTAC evaluation 01/01- she improve now --she is on O2 -- NC 2 --lasix 40 mg iv qd -- continue PT/OT -- rehab placement as rehab Med Rec Med Rec Discharge meds: Stop taking the following medications: FUROSEMIDE (LASIX) 20 MG TAB 10 MILLIGRAM ORAL DAILY. METOLAZONE (ZAROXOLYN) 10 MG TAB 10 MILLIGRAM ORAL DAILY. Continue taking these medications: RIVAROXABAN (XARELTO) 20 MG TAB 20 MILLIGRAM ORAL DAILY. amLODIPine (NORVASC) 5 MG TAB 5 MILLIGRAM ORAL DAILY. cloNIDine (CATAPRES) 0.3 MG TAB 0.3 MILLIGRAM ORAL TWICE DAILY. DOXAZOSIN (CARDURA) 4 MG TAB LISINOPRIL (ZESTRIL) 40 MG TAB OLMESARTAN (BENICAR) 40 MG TAB 40 MILLIGRAM ORAL DAILY. PRAVASTATIN (PRAVACHOL) 10 MG TAB POTASSIUM CHLORIDE ER (MICRO-K) 10 MEQ CAP.SA 10 MILLIEQUIVALENT ORAL DAILY. OMEPRAZOLE ER (OMEPRAZOLE ER) 20 MG CAP.DR 20 MILLIGRAM ORAL DAILY. GLIMEPIRIDE (AMARYL) 4 MG TAB 4 MILLIGRAM ORAL DAILY. INSULIN DETEMIR (LEVEMIR FlexTouch (15mL)) 100 U NIT/ML (3 ML) PEN.INJCTR 50 UNITS SUBCUTANEOUS TWICE DAILY. INSULIN LISPRO (HumaLOG CARTRIDGE (15mL)) 100 UN IT/ML CARTRIDGE 0 UNITS SUBCUTANEOUS THREE TIMES A DAY. Instructions: per sliding scale LIRAGLUTIDE (VICTOZA (6mL)) 0.6 MG/0.1 ML (18 MG /3 ML) PEN.INJCTR 1.8 MILLIGRAM SUBCUTANEOUS DAILY. metFORMIN (GLUCOPHAGE) 1,000 MG TAB 1,000 MILLIGRAM ORAL TWICE DAILY. Instructions: TAKE WITH MEALS ADALIMUMAB + SUPPLIES (HUMIRA PREFILLED PEN) 40 MG/0.8 ML KIT 40 MILLIGRAM SUBCUTANEOUS EVERY 14 DAYS. azaTHIOprine (IMURAN) 50 MG TAB 50 MILLIGRAM ORAL DAILY. Start taking the following new medications: IPRATROPIUM/ALBUTEROL (DUONEB 0.5 MG-3/3 ML) 0.5 MG-3 MG (2.5 MG BASE)/3 ML NEB 3 MILLILITERS NEB RT - EVERY 6 HOURS. Qty = 60 No Refills CLOPIDOGREL (PLAVIX) 75 MG TAB 75 MILLIGRAM ORAL DAILY. Qty = 30 No Refills FERROUS SULFATE (FEOSOL) 325 MG (65 MG IRON) TAB 325 MILLIGRAM ORAL DAILY. Qty = 30 No Refills AMIODARONE (PACERONE) 200 MG TAB 200 MILLIGRAM ORAL TWICE DAILY. Qty = 60 No Refills ATORVASTATIN (LIPITOR) 40 MG TAB 40 MILLIGRAM ORAL 2100 Qty = 30 No Refills METOPROLOL TARTRATE (LOPRESSOR) 25 MG TAB 25 MILLIGRAM ORAL EVERY 12 HOURS. Qty = 30 No Refills ASPIRIN (ASPIRIN) 81 MG TAB.CHEW 81 MILLIGRAM ORAL DAILY. Qty = 30 No Refills FUROSEMIDE (LASIX) 40 MG TAB 40 MILLIGRAM ORAL TWICE DAILY AT 9AM 4PM. Qty = 30 No Refills Objective VS/I O Last Documented: Result Date Time Pulse Ox 100 01/07 1205 B/P 139/76 01/07 1205 B/P Mean 97.0 01/07 120 O2 Delivery Nasal cannula 01/07 120 Temp 36.5 01/07 1205 Pulse 70 01/07 1205 Resp 15 01/07 1205 O2 Flow Rate 3 01/07 0800 FiO2 40 01/07 0249 24 hour I O ending at 0700: 01/07 0700 01/06 1900 Intake Total 450 800 Output Total 750 1890 Balance -300 -1090 Intake, Oral 450 800 Number Voids 1 Output, Urine 750 1890 Patient 120.4 kg Weight Weight Bed scale Measurement Method General appearance: alert, awake, oriented Head/Eyes: atraumatic, normal conjunctiva/sclera , normal eyelids/periorb., normocephalic Neck: full range of motion, non-tender, no JVD Cardiovascular: normal heart sounds, regular rat e rhythm Respiratory: decreased breath sounds, clear to a uscultation Abdomen: non-tender, normal bowel sounds, soft, no distention Extremities: edema, moves all, no calf tendernes s Musculoskeletal: decreased ROM 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, 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 Skin: dry, intact Psychiatry: normal affect, normal mood Results Findings/Data: Laboratory Tests: 01/07 01/07 01/07 01/06 01/06 0940 0816 0605 2120 1639 Chemistry Sodium (134 - 147 mEq/L) 141 Potassium (3.4 - 5.0 mEq/L) 3.5 Chloride (100 - 108 mEq/L) 100 Carbon Dioxide (21 - 33 mEq/l) 34 H Anion Gap (0 - 20) 11 BUN (7 - 18 mg/dL) 23 H Creatinine (0.6 - 1.3 mg/dL) 0.9 Glomerular Filtr Rate (70 - 80) 60.6 L Glucose (70 - 110 mg/dL) 90 POC Glucose (70 - 110 MG/DL) 84 119 H 170 H Calcium (8.0 - 10.5 mg/dL) 9.1 Serology SARS-CoV-2 Ag (Rapid) (Negative) Negative Discharge Instructions PCP Discharge to: Inpatient Rehab Facility Additional Discharge Routines: Attending Follow- Up Diet: Cardiac Activity: As Tolerated Follow-up Appointments Attending Physician: Attending Physician: Jeffry More MD Quality: Discharge Current Medications Current medication review: Home Medications: RIVAROXABAN (XARELTO) 20 MG PO DAILY amLODIPine (NORVASC) 5 MG PO DAILY cloNIDine (CATAPRES) 0.3 MG PO BID DOXAZOSIN (CARDURA) LISINOPRIL (ZESTRIL) OLMESARTAN (BENICAR) 40 MG PO DAILY PRAVASTATIN (PRAVACHOL) FUROSEMIDE (LASIX) 10 MG PO DAILY METOLAZONE (ZAROXOLYN) 10 MG PO DAILY POTASSIUM CHLORIDE ER (MICRO-K) 10 MEQ PO DAILY OMEPRAZOLE ER 20 MG PO DAILY GLIMEPIRIDE (AMARYL) 4 MG PO DAILY INSULIN DETEMIR (LEVEMIR FlexTouch (15mL)) 50 UN ITS SUBQ BID INSULIN LISPRO (HumaLOG CARTRIDGE (15mL)) 0 UNIT S SUBQ TID LIRAGLUTIDE (VICTOZA (6mL)) 1.8 MG SUBQ DAILY metFORMIN (GLUCOPHAGE) 1,000 MG PO BID ADALIMUMAB + SUPPLIES (HUMIRA PREFILLED PEN) 40 MG SUBQ Q14D azaTHIOprine (IMURAN) 50 MG PO DAILY I attest that the foregoing medication list in t he medical record is true, accurate, and complete to the best of my knowled ge. Electronically Signed by Meryl Rosa MD on 2 at 1222 [facility] #:[id number] END OF REPORT 2022-01-06 18:07:00-00:00 [facility] REPORT#:[id number] REPORT STATUS: Signed DATE:01/06/22 TIME: 1806 PATIENT: SAÚL GILES UNIT #: [id number] ROOM/BED: [place] [address] : 43 AGE: 76 SEX: F ATTEND: Leah More MD ADM AUTHOR: Alicia Pantoja NP * ALL edits or amendments must be made on the [employer]/computer document * Subjective Chief complaint: rehab follow-up NAD OOB in chair Breathing better feeling better Ready to go to rehab No GOLD/N/V/D 14 systems reviewed and negative except that men tioned above. Objective General VS: Vital Signs: Date Time Temp Pulse Resp B/P B/P Pulse O2 O2 F low FiO2 Mean Ox Delivery Rate 01/06 1745 97.3 69 20 140/63 0.0 95 Nasal cannula 01/06 1137 97.3 72 17 129/61 0.0 97 Nasal cannula 01/06 0909 76 16 146/65 94 99 01/06 0852 100 Nasal 3 32 cannula 01/06 0804 97.5 75 18 153/69 0.0 92 Nasal cannula 01/06 0800 Nasal 3 cannula 01/06 0501 97.7 74 14 143/87 0.0 100 01/06 0216 69 95 40 01/05 2351 97.5 73 17 125/75 92.1 97 01/05 2200 Nasal 3 cannula 01/057 75 94 40 01/05 2127 94 Nasal 3 cannula 01/05 2036 97.9 79 16 131/72 91.8 97 PATIENT WEIGHT: Weight (lb): 258 Weight (oz): 13.16 Weight (kg): 117.400 Medications: Active Meds + DC'd Last 24 Hrs Acetazolamide (DIAMOX) 250 MG DAILY PO Furosemide (LASIX) 40 MG DAILY PO Potassium Chloride (POTASSIUM CHLORIDE 20MEQ TAB .ER) 20 MEQ Q2H PO (DC) Metoprolol Tartrate (LOPRESSOR) 25 MG Q12HR PO Acetazolamide (DIAMOX) 500 MG Q24H IV (DC) Furosemide (LASIX 40 mg/4 mL INJECTION) 40 MG DA EMELIA IV (DC) Sterile Water (WATER FOR INJECTION) 5 ML ASDIR P RN IV Potassium Chloride (POTASSIUM CHLORIDE 20MEQ TAB .ER) 40 MEQ DAILY PRN PRN PO Insulin Glargine (Lantus/Semglee) 30 UNIT DAILY SUBQ Insulin Glargine (Lantus/Semglee) 20 UNIT BEDTIM E SUBQ Insulin Human Lispro (HUMALOG) 0 AC HS SUBQ Dextrose/Water (DEXTROSE 10% IN WATER) 125 ML DIR PRN IV (CKD) Dextrose/Water (DEXTROSE 10% IN WATER) 250 ML DIR PRN IV (CKD) Glucagon (GLUCAGON) 1 MG ASDIR PRN IM Amiodarone HCl (CORDARONE) 200 MG BID PO Sterile Water (WATER FOR INJECTION) 5 ML ASDIR P RN IV Sterile Water (WATER FOR INJECTION) 5 ML ASDIR P RN IV Sodium Chloride (SODIUM CHLORIDE) 4 ML RTBID NEB Melatonin (Melatonin) 3 MG BEDTIME PO Sodium Chloride (SODIUM CHLORIDE) 10 ML BID IV Sodium Chloride (SODIUM CHLORIDE) 10 ML ASDIR NE N IV Pantoprazole (PROTONIX) 40 MG DAILY PO Dexmedetomidine/Sodium Chloride (PRECEDEX 1000MC G/NS 250ML) 250 ML ASDIR IV Bisacodyl (DULCOLAX) 10 MG DAILY PRN PRN RECTAL Lactulose (LACTULOSE) 20 GM DAILY PRN PRN PO Magnesium Hydroxide (MILK OF MAGNESIA) 30 ML PETER LY PRN PRN PO Aspirin (ASPIRIN) 81 MG DAILY PO Clopidogrel Bisulfate (Plavix) 75 MG DAILY PO Cyanocobalamin (Vitamin B-12 500 mcg tab) 500 MC G DAILY PO Ferrous Sulfate (FERROUS SULFATE) 325 MG DAILY P O Metolazone (metOLazone) 5 MG DAILY PO Polyethylene Glycol (MIRALAX) 17 GM DAILY PO Atorvastatin Calcium (LIPITOR) 40 MG 2100 PO Docusate Sodium (DOCUSATE SODIUM) 100 MG BID PO Senna (SENOKOT) 17.6 MG BEDTIME PO Acetaminophen (TYLENOL) 650 MG Q4H PRN PRN PO Acetylcysteine (MUCOMYST FOR RT) 200 MG RTQ6H NE B Albuterol/Ipratropium (DUONEB) 3 ML RTQ6H NEB Bisacodyl (DULCOLAX) 10 MG ONCE PRN RECTAL Dopamine HCl/Dextrose (DOPamine 400MG/D5W 250ML) 250 ML ASDIR IV Milrinone Lactate/Dextrose (MILRINONE 20MG/D5W 1 00ML) 100 ML ASDIR IV ( CKD) Vasopressin (VASOSTRICT 20 Unit/NS 100ML) 100 ML ASDIR IV (CKD) Acetaminophen (TYLENOL) 650 MG Q4H PRN PRN RECTA L Calcium Chloride (CALCIUM CHLORIDE) 1 GM ASDIR P RN IV Magnesium Sulfate (MAGNESIUM SULFATE 4GM/SWFI 10 0ML) 100 ML ASDIR PRN IV Magnesium Sulfate (MAGNESIUM SULFATE 2GM/SWFI 50 ML) 50 ML ASDIR PRN IV Magnesium Sulfate/Dextrose (MAGNESIUM SULFATE 1G M/D5W 100ML) 100 ML ASDIR PRN IV Nitroglycerin/Dextrose (NITROGLYCERIN 50,000MCG/ D5W 250ML) 250 ML ASDIR IV Norepinephrine Bitartrate (NOREPINEPHRINE 8 MG/N S 250 ML) 250 ML TITRATE IV Potassium Chloride (KCL 20MEQ/SWFI 100ML) 100 ML ASDIR PRN IV Sodium Bicarbonate (SODIUM BICARBONATE) 50 MEQ A SDIR PRN IV Ondansetron HCl (ZOFRAN) 4 MG Q6H PRN PRN IV Physical Exam General appearance: obese, alert, awake, oriente d Psych: alert, oriented x 3 HEENT: anicteric, mucosal membranes moist Neck: supple, no JVD Cardiovascular: regular rate rhythm, no murmur Respiratory: diminished breath sounds (bases ), on oxygen (Hi flow O2 ) Abdomen: bowel sounds present, non-distended, so ft, non-tender Skin: dry, intact, no rash, incisions D/I Musculoskeletal - general: Musculoskeletal - general: swelling (BLE +3), m oving all ext AG 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, 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, normal speech, n o motor deficits, no sensory deficits Results Findings/Data: Laboratory Tests: 01/06 01/06 01/06 01/05 1129 0757 0320 2035 Chemistry Sodium (134 - 147 mEq/L) 143 Potassium (3.4 - 5.0 mEq/L) 3.2 L Chloride (100 - 108 mEq/L) 101 Carbon Dioxide (21 - 33 mEq/l) 36 H Anion Gap (0 - 20) 9 BUN (7 - 18 mg/dL) 29 H Creatinine (0.6 - 1.3 mg/dL) 1.1 Glomerular Filtr Rate (70 - 80) 48.0 L Glucose (70 - 110 mg/dL) 115 H POC Glucose (70 - 110 MG/DL) 200 H 105 162 H Calcium (8.0 - 10.5 mg/dL) 9.4 Magnesium (1.80 - 2.40 mg/dL) 1.86 Hematology WBC (4.5 - 11.0 x10 3/uL) 5.7 RBC (3.54 - 5.02 x10 6/uL) 2.29 L Hgb (11.0 - 15.0 g/dL) 8.1 L Hct (33.0 - 45.0 %) 25.6 L MCV (81.0 - 99.0 fL) 111.8 H MCH (27.0 - 33.0 pg) 35.4 H MCHC (33.0 - 37.0 g/dL) 31.6 L RDW (11.5 - 14.5 %) 18.7 H Plt Count (150 - 400 x10 3/uL) 244 MPV (7.0 - 9.0 fL) 10.8 H Neut % (Auto) (56.0 - 77.0 %) 77.4 H Lymph % (Auto) (14.0 - 32.0 %) 7.8 L Barron % (Auto) (4.8 - 9.0 %) 11.7 H Eos % (Auto) (0.3 - 3.7 %) 1.6 Baso % (Auto) (0.0 - 2.0 %) 0.3 Neut # (Auto) (2.0 - 7.6 x10 3/uL) 4.44 Lymph # (Auto) (1.0 - 3.8 x10 3/uL) 0.45 L Barron # (Auto) (0.1 - 0.8 x10 3/uL) 0.67 Eos # (Auto) (0.0 - 0.2 x10 3/uL) 0.09 Baso # (Auto) (0.0 - 0.2 x10 3/uL) 0.02 Abs Immat Gran (auto) (0.00 - 0.03 x10 3/uL) 0. 07 H Add Manual Diff NO Immature Gran % (0.0 - 2.0 %) 1.2 Nucleated RBC % (0 - 0 %) 0.5 H Nucleated RBCs # (Man) (0.0 - 0.1 x10 3/uL) 0.0 3 Diagnosis, Assessment Plan Free Text A P: 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 fib Hypoxic respiratory failure Hypokalemia Plan: Continue PT/OT Out of bed to chair Work on strength, bed mobility, transfers, gait Increase endurance Fall precautions Monitor p.o. intake and nutrition Strict decubitus precautions Monitor anemia Advance therapies as tolerated Tolerating regular diet Continue diuresis- monitor strict I Os Lasix IV 40 daily Weigh patient daily Potassium replenished Advance therapies as tolerated IRF consulted. Spoke with 5e ast Bentley Hsu-states pt should have bed on rehab unit tomorrow Total time 35mins time spent reviewing labs, notes, meds, therapy, vs, and with patient performing physical examination, discussing rehab plan of care, goals, therapies, progress, medications, labs, IRF. All questions answered Rehab attestation: Face to face exam completed. Treatment plan disc ussed with patient. at 1809 RPT #:[id number] END OF REPORT 2022-01-06 15:29:00-00:00 [facility]) Cardiology Progress Note REPORT#:[id number] REPORT STATUS: Signed DATE:01/06/22 TIME: 1529 PATIENT: SAÚL GILES UNIT #: [id number] ROOM/BED: [place] [address] : 43 AGE: 76 SEX: F ATTEND: Leah More MD ADM AUTHOR: Isabella Clemens CNP * ALL edits or amendments must be made on the [employer]/computer document * Subjective Patient reports: No: complaints. Objective General VS/I O: 24 hour I O ending at 0700: 01/06 0700 01/05 1900 Intake Total 250 600 Output Total 1600 1100 Balance -1350 -500 Intake, Oral 250 600 Number Voids 3 Output, Urine 1600 1100 Patient 117.4 kg Weight Weight Standing scale Measurement Method Vital Signs: Date Time Temp Pulse Resp B/P B/P Pulse O2 O2 F low FiO2 Mean Ox Delivery Rate 01/06 1137 36.3 72 17 129/61 0.0 97 Nasal cannula 01/06 0909 76 16 146/65 94 99 01/06 0852 100 Nasal 3 32 cannula 01/06 0804 36.4 75 18 153/69 0.0 92 Nasal cannula 01/06 0800 Nasal 3 cannula 01/06 0501 36.5 74 14 143/87 0.0 100 01/06 0216 69 95 40 01/05 2351 36.4 73 17 125/75 92.1 97 01/050 Nasal 3 cannula 01/05 2127 75 94 40 01/05 2127 94 Nasal 3 cannula 01/06 2036 36.6 79 16 131/72 91.8 97 01/05 1644 36.4 76 20 136/78 97.2 99 Nasal cannula PATIENT WEIGHT: Weight (lb): 258 Weight (oz): 13.16 Weight (kg): 117.400 Medications: Active Meds + DC'd Last 24 Hrs Acetazolamide (DIAMOX) 250 MG DAILY PO Furosemide (LASIX) 40 MG DAILY PO Potassium Chloride (POTASSIUM CHLORIDE 20MEQ TAB .ER) 20 MEQ Q2H PO (DC) Metoprolol Tartrate (LOPRESSOR) 25 MG Q12HR PO Acetazolamide (DIAMOX) 500 MG Q24H IV (DC) Furosemide (LASIX 40 mg/4 mL INJECTION) 40 MG DA EMELIA IV (DC) Sterile Water (WATER FOR INJECTION) 5 ML ASDIR P RN IV Potassium Chloride (POTASSIUM CHLORIDE 20MEQ TAB .ER) 40 MEQ DAILY PRN PRN PO Insulin Glargine (Lantus/Semglee) 30 UNIT DAILY SUBQ Insulin Glargine (Lantus/Semglee) 20 UNIT BEDTIM E SUBQ Insulin Human Lispro (HUMALOG) 0 AC HS SUBQ Dextrose/Water (DEXTROSE 10% IN WATER) 125 ML DIR PRN IV (CKD) Dextrose/Water (DEXTROSE 10% IN WATER) 250 ML DIR PRN IV (CKD) Glucagon (GLUCAGON) 1 MG ASDIR PRN IM Amiodarone HCl (CORDARONE) 200 MG BID PO Sterile Water (WATER FOR INJECTION) 5 ML ASDIR P RN IV Sterile Water (WATER FOR INJECTION) 5 ML ASDIR P RN IV Sodium Chloride (SODIUM CHLORIDE) 4 ML RTBID NEB Melatonin (Melatonin) 3 MG BEDTIME PO Sodium Chloride (SODIUM CHLORIDE) 10 ML BID IV Sodium Chloride (SODIUM CHLORIDE) 10 ML ASDIR NE N IV Pantoprazole (PROTONIX) 40 MG DAILY PO Dexmedetomidine/Sodium Chloride (PRECEDEX 1000MC G/NS 250ML) 250 ML ASDIR IV Bisacodyl (DULCOLAX) 10 MG DAILY PRN PRN RECTAL Lactulose (LACTULOSE) 20 GM DAILY PRN PRN PO Magnesium Hydroxide (MILK OF MAGNESIA) 30 ML PETER LY PRN PRN PO Aspirin (ASPIRIN) 81 MG DAILY PO Clopidogrel Bisulfate (Plavix) 75 MG DAILY PO Cyanocobalamin (Vitamin B-12 500 mcg tab) 500 MC G DAILY PO Ferrous Sulfate (FERROUS SULFATE) 325 MG DAILY P O Metolazone (metOLazone) 5 MG DAILY PO Polyethylene Glycol (MIRALAX) 17 GM DAILY PO Atorvastatin Calcium (LIPITOR) 40 MG 2100 PO Docusate Sodium (DOCUSATE SODIUM) 100 MG BID PO Senna (SENOKOT) 17.6 MG BEDTIME PO Acetaminophen (TYLENOL) 650 MG Q4H PRN PRN PO Acetylcysteine (MUCOMYST FOR RT) 200 MG RTQ6H NE B Albuterol/Ipratropium (DUONEB) 3 ML RTQ6H NEB Bisacodyl (DULCOLAX) 10 MG ONCE PRN RECTAL Dopamine HCl/Dextrose (DOPamine 400MG/D5W 250ML) 250 ML ASDIR IV Milrinone Lactate/Dextrose (MILRINONE 20MG/D5W 1 00ML) 100 ML ASDIR IV ( CKD) Vasopressin (VASOSTRICT 20 Unit/NS 100ML) 100 ML ASDIR IV (CKD) Acetaminophen (TYLENOL) 650 MG Q4H PRN PRN RECTA L Calcium Chloride (CALCIUM CHLORIDE) 1 GM ASDIR P RN IV Magnesium Sulfate (MAGNESIUM SULFATE 4GM/SWFI 10 0ML) 100 ML ASDIR PRN IV Magnesium Sulfate (MAGNESIUM SULFATE 2GM/SWFI 50 ML) 50 ML ASDIR PRN IV Magnesium Sulfate/Dextrose (MAGNESIUM SULFATE 1G M/D5W 100ML) 100 ML ASDIR PRN IV Nitroglycerin/Dextrose (NITROGLYCERIN 50,000MCG/ D5W 250ML) 250 ML ASDIR IV Norepinephrine Bitartrate (NOREPINEPHRINE 8 MG/N S 250 ML) 250 ML TITRATE IV Potassium Chloride (KCL 20MEQ/SWFI 100ML) 100 ML ASDIR PRN IV Sodium Bicarbonate (SODIUM BICARBONATE) 50 MEQ A SDIR PRN IV Ondansetron HCl (ZOFRAN) 4 MG Q6H PRN PRN IV Status post: CABG, MVR, and ILAA Pacemaker: permanent Physical Exam General appearance: obese, alert, awake, oriente d, no acute distress Neck: no JVD Cardiovascular: CV assessment: pedal edema, regular rate and rh ythm Respiratory: decreased breath sounds, on oxygen, shortness of breath, no distress Abdomen: obese Genitourinary: no flank pain, no urinary cathete r Upper extremity: UE assessment: normal temperature, no edema Lower extremity: LE assessment: edema (less) 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, 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 Skin: dry Psychiatry: normal affect, normal mood Results Findings/Data: Laboratory Tests 01/06 01/06 01/06 01/05 01/05 1129 0757 0320 2035 1641 Chemistry Sodium (134 - 147 mEq/L) 143 Potassium (3.4 - 5.0 mEq/L) 3.2 L Chloride (100 - 108 mEq/L) 101 Carbon Dioxide (21 - 33 mEq/l) 36 H Anion Gap (0 - 20) 9 BUN (7 - 18 mg/dL) 29 H Creatinine (0.6 - 1.3 mg/dL) 1.1 Glomerular Filtr Rate (70 - 80) 48.0 L Glucose (70 - 110 mg/dL) 115 H POC Glucose (70 - 110 MG/DL) 200 H 105 162 H 14 0 H Calcium (8.0 - 10.5 mg/dL) 9.4 Magnesium (1.80 - 2.40 mg/dL) 1.86 Laboratory Tests 01/06 0320 Hematology WBC (4.5 - 11.0 x10 3/uL) 5.7 RBC (3.54 - 5.02 x10 6/uL) 2.29 L Hgb (11.0 - 15.0 g/dL) 8.1 L Hct (33.0 - 45.0 %) 25.6 L MCV (81.0 - 99.0 fL) 111.8 H MCH (27.0 - 33.0 pg) 35.4 H MCHC (33.0 - 37.0 g/dL) 31.6 L RDW (11.5 - 14.5 %) 18.7 H Plt Count (150 - 400 x10 3/uL) 244 MPV (7.0 - 9.0 fL) 10.8 H Neut % (Auto) (56.0 - 77.0 %) 77.4 H Lymph % (Auto) (14.0 - 32.0 %) 7.8 L Barron % (Auto) (4.8 - 9.0 %) 11.7 H Eos % (Auto) (0.3 - 3.7 %) 1.6 Baso % (Auto) (0.0 - 2.0 %) 0.3 Neut # (Auto) (2.0 - 7.6 x10 3/uL) 4.44 Lymph # (Auto) (1.0 - 3.8 x10 3/uL) 0.45 L Barron # (Auto) (0.1 - 0.8 x10 3/uL) 0.67 Eos # (Auto) (0.0 - 0.2 x10 3/uL) 0.09 Baso # (Auto) (0.0 - 0.2 x10 3/uL) 0.02 Abs Immat Gran (auto) (0.00 - 0.03 x10 3/uL) 0. 07 H Add Manual Diff NO Immature Gran % (0.0 - 2.0 %) 1.2 Nucleated RBC % (0 - 0 %) 0.5 H Nucleated RBCs # (Man) (0.0 - 0.1 x10 3/uL) 0.0 3 Laboratory Tests 01/06 0320 Chemistry Magnesium (1.80 - 2.40 mg/dL) 1.86 Radiology data: Recent Impressions: ULTRASOUND - DUP VEIN OLLIE 01/06 0602 Report Impression - Status: SIGNED Entered: 01/06/2022626 IMPRESSION: No evidence of deep vein thrombosis. Impression By: [email or web address] - Enrico Goss Telemetry Interpretation: paced Diagnosis, Assessment Plan Plan discussed with: patient Free Text DxA P Notes Free Text DxA P Notes: Ms Giles is a 76 y/o Femal w / PMHx: CAD, HLD, T2DM, RONA (CPAP at home), smoker, Crohn's disease, AF s/p ablation (on Xarelto), s /p PPM and lymphedema. Dr. Fortune is consulted for CAD s/p CABG, MVR. 1. CAD s/p CABG, MVR, and ILAA. post-op per CTS and critical care On Plavix, aspirin, beta-delma, statin volume management per Nephrology negative fluid balance 2. Chronic AF s/p PPM/ablation. had ILAA during bypass no need for AC 3. Hypertension continue metoprolol tartrate 25 mg BID 4. Hyperlipidemia Continue statins. 5. Crohn's disease. Per IM. 6. MARCELLO - resolving per Nephrology 7. Resp insufficiency BiPAP as needed on Nasal cannula Slowly improving 8. Acute on chronic diastolic CHF/volume overloa d volume status improving diuretic management per nephrology/CTS - on PO l asix Slowly improving continue supportive care PT OT awaiting inpatient rehab at 1804 Electronically Signed by Aruna Fortune MD on at 1549 RPT #:[id number] END OF REPORT 2022-01-06 15:29:00-00:00 [facility] Cardiothoracic Surgery Prog REPORT#:[id number] REPORT STATUS: Signed DATE:01/06/22 TIME: 1529 PATIENT: SAÚL GILES UNIT #: [id number] ROOM/BED: [place] [address] : 43 AGE: 76 SEX: F ATTEND: Leah More MD ADM AUTHOR: Kena Macedo * ALL edits or amendments must be made on the [employer]/computer document * General Status post: 1. Mitral valve replacement (31 Magna valve). 2. Coronary artery bypass graft surgery x1 (GOMES A to LAD). 3. Isolation of left atrial appendage. 4. Pericardiectomy. Subjective Chief complaint: Follow up MVR Review of Systems Constitutional: Denies: fever, malaise. Allergy/Immun: Denies: allergic reaction. ENT: Denies: sore throat. Respiratory: Denies: SOB. GI: Denies: abdominal pain. Heme: Denies: bleeding. Neuro: Denies: focal weakness, headache. All systems rev neg: except as marked Objective General VS/I O Last Documented: Result Date Time Pulse Ox 95 01/06 1745 B/P 140/63 01/06 1745 B/P Mean 0.0 01/06 1745 O2 Delivery Nasal cannula 01/06 1745 Temp 97.3 01/06 1745 Pulse 69 01/06 1745 Resp 20 10/25 1745 FiO2 32 01/06 1615 O2 Flow Rate 3 01/06 1615 24 hour I O ending at 0700: 01/06 0700 01/05 1900 Intake Total 250 600 Output Total 1600 1100 Balance -1350 -500 Intake, Oral 250 600 Number Voids 3 Output, Urine 1600 1100 Patient 259 lb Weight Weight Standing scale Measurement Method PATIENT WEIGHT: Weight (lb): 258 Weight (oz): 13.16 Weight (kg): 117.400 Physical Exam General appearance: obese, alert, oriented Wound/incision: Location: sternal Site condition: edges approximated, incision in tact, no drainage HEENT: anicteric Neck: supple/no meningismus Cardiovascular: normal heart sounds, regular rat e rhythm Respiratory: aerating well, symmetric expansion, no distress Abdomen: soft, non-tender Extremities: moves all 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, 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, normal speech Skin: dry, intact, normal temperature Psychiatry: normal affect, normal mood Current Medications Medications: Active Meds + DC'd Last 24 Hrs Acetazolamide (DIAMOX) 250 MG DAILY PO Furosemide (LASIX) 40 MG DAILY PO Potassium Chloride (POTASSIUM CHLORIDE 20MEQ TAB .ER) 20 MEQ Q2H PO (DC) Metoprolol Tartrate (LOPRESSOR) 25 MG Q12HR PO Acetazolamide (DIAMOX) 500 MG Q24H IV (DC) Furosemide (LASIX 40 mg/4 mL INJECTION) 40 MG DA EMELIA IV (DC) Sterile Water (WATER FOR INJECTION) 5 ML ASDIR P RN IV Potassium Chloride (POTASSIUM CHLORIDE 20MEQ TAB .ER) 40 MEQ DAILY PRN PRN PO Insulin Glargine (Lantus/Semglee) 30 UNIT DAILY SUBQ Insulin Glargine (Lantus/Semglee) 20 UNIT BEDTIM E SUBQ Insulin Human Lispro (HUMALOG) 0 AC HS SUBQ Dextrose/Water (DEXTROSE 10% IN WATER) 125 ML DIR PRN IV (CKD) Dextrose/Water (DEXTROSE 10% IN WATER) 250 ML DIR PRN IV (CKD) Glucagon (GLUCAGON) 1 MG ASDIR PRN IM Amiodarone HCl (CORDARONE) 200 MG BID PO Sterile Water (WATER FOR INJECTION) 5 ML ASDIR P RN IV Sterile Water (WATER FOR INJECTION) 5 ML ASDIR P RN IV Sodium Chloride (SODIUM CHLORIDE) 4 ML RTBID NEB Melatonin (Melatonin) 3 MG BEDTIME PO Sodium Chloride (SODIUM CHLORIDE) 10 ML BID IV Sodium Chloride (SODIUM CHLORIDE) 10 ML ASDIR NE N IV Pantoprazole (PROTONIX) 40 MG DAILY PO Dexmedetomidine/Sodium Chloride (PRECEDEX 1000MC G/NS 250ML) 250 ML ASDIR IV Bisacodyl (DULCOLAX) 10 MG DAILY PRN PRN RECTAL Lactulose (LACTULOSE) 20 GM DAILY PRN PRN PO Magnesium Hydroxide (MILK OF MAGNESIA) 30 ML PETER LY PRN PRN PO Aspirin (ASPIRIN) 81 MG DAILY PO Clopidogrel Bisulfate (Plavix) 75 MG DAILY PO Cyanocobalamin (Vitamin B-12 500 mcg tab) 500 MC G DAILY PO Ferrous Sulfate (FERROUS SULFATE) 325 MG DAILY P O Metolazone (metOLazone) 5 MG DAILY PO Polyethylene Glycol (MIRALAX) 17 GM DAILY PO Atorvastatin Calcium (LIPITOR) 40 MG 2100 PO Docusate Sodium (DOCUSATE SODIUM) 100 MG BID PO Senna (SENOKOT) 17.6 MG BEDTIME PO Acetaminophen (TYLENOL) 650 MG Q4H PRN PRN PO Acetylcysteine (MUCOMYST FOR RT) 200 MG RTQ6H NE B Albuterol/Ipratropium (DUONEB) 3 ML RTQ6H NEB Bisacodyl (DULCOLAX) 10 MG ONCE PRN RECTAL Dopamine HCl/Dextrose (DOPamine 400MG/D5W 250ML) 250 ML ASDIR IV Milrinone Lactate/Dextrose (MILRINONE 20MG/D5W 1 00ML) 100 ML ASDIR IV ( CKD) Vasopressin (VASOSTRICT 20 Unit/NS 100ML) 100 ML ASDIR IV (CKD) Acetaminophen (TYLENOL) 650 MG Q4H PRN PRN RECTA L Calcium Chloride (CALCIUM CHLORIDE) 1 GM ASDIR PRN IV Magnesium Sulfate (MAGNESIUM SULFATE 4GM/SWFI 10 0ML) 100 ML ASDIR PRN IV Magnesium Sulfate (MAGNESIUM SULFATE 2GM/SWFI 50 ML) 50 ML ASDIR PRN IV Magnesium Sulfate/Dextrose (MAGNESIUM SULFATE 1G M/D5W 100ML) 100 ML ASDIR PRN IV Nitroglycerin/Dextrose (NITROGLYCERIN 50,000MCG/ D5W 250ML) 250 ML ASDIR IV Norepinephrine Bitartrate (NOREPINEPHRINE 8 MG/N S 250 ML) 250 ML TITRATE IV Potassium Chloride (KCL 20MEQ/SWFI 100ML) 100 ML ASDIR PRN IV Sodium Bicarbonate (SODIUM BICARBONATE) 50 MEQ A SDIR PRN IV Ondansetron HCl (ZOFRAN) 4 MG Q6H PRN PRN IV Results Findings/Data: Laboratory Tests 01/06 01/06 01/06 01/06 01/05 1639 1129 0757 0320 2035 Chemistry Sodium (134 - 147 mEq/L) 143 Potassium (3.4 - 5.0 mEq/L) 3.2 L Chloride (100 - 108 mEq/L) 101 Carbon Dioxide (21 - 33 mEq/l) 36 H Anion Gap (0 - 20) 9 BUN (7 - 18 mg/dL) 29 H Creatinine (0.6 - 1.3 mg/dL) 1.1 Glomerular Filtr Rate (70 - 80) 48.0 L Glucose (70 - 110 mg/dL) 115 H POC Glucose (70 - 110 MG/DL) 170 H 200 H 105 16 2 H Calcium (8.0 - 10.5 mg/dL) 9.4 Magnesium (1.80 - 2.40 mg/dL) 1.86 Laboratory Tests 01/06 0320 Hematology WBC (4.5 - 11.0 x10 3/uL) 5.7 RBC (3.54 - 5.02 x10 6/uL) 2.29 L Hgb (11.0 - 15.0 g/dL) 8.1 L Hct (33.0 - 45.0 %) 25.6 L MCV (81.0 - 99.0 fL) 111.8 H MCH (27.0 - 33.0 pg) 35.4 H MCHC (33.0 - 37.0 g/dL) 31.6 L RDW (11.5 - 14.5 %) 18.7 H Plt Count (150 - 400 x10 3/uL) 244 MPV (7.0 - 9.0 fL) 10.8 H Neut % (Auto) (56.0 - 77.0 %) 77.4 H Lymph % (Auto) (14.0 - 32.0 %) 7.8 L Barron % (Auto) (4.8 - 9.0 %) 11.7 H Eos % (Auto) (0.3 - 3.7 %) 1.6 Baso % (Auto) (0.0 - 2.0 %) 0.3 Neut # (Auto) (2.0 - 7.6 x10 3/uL) 4.44 Lymph # (Auto) (1.0 - 3.8 x10 3/uL) 0.45 L Barron # (Auto) (0.1 - 0.8 x10 3/uL) 0.67 Eos # (Auto) (0.0 - 0.2 x10 3/uL) 0.09 Baso # (Auto) (0.0 - 0.2 x10 3/uL) 0.02 Abs Immat Gran (auto) (0.00 - 0.03 x10 3/uL) 0. 07 H Add Manual Diff NO Immature Gran % (0.0 - 2.0 %) 1.2 Nucleated RBC % (0 - 0 %) 0.5 H Nucleated RBCs # (Man) (0.0 - 0.1 x10 3/uL) 0.0 3 Radiology data: Recent Impressions: ULTRASOUND - DUP VEIN OLLIE 01/06 06 Report Impression - Status: SIGNED Entered: 01/06/2022626 IMPRESSION: No evidence of deep vein thrombosis. Impression By: [email or web address] - Enrico Goss Diagnosis, Assessment Plan Free Text A P: Ambulate Encourage incentive spirometry Diuresis per nephrology Discharge planning 01/05 Patient is sleepy but arousable and oriented. Respiratory support with nasal cannula 2 L. Wean to keep O2 sats greater 90% Echo to rule out pericardial effusion BLE venous Doppler to rule out DVT Diuresis per nephrology. Electrolytes replaced Hopefully she can transfer to rehab tomorrow 01/06 Doing well, awake, no acute distress Remains on nasal cannula 3 L. O2 sats are 100%, wean O2 as tolerated Echocardiogram showed EF 55 to 59% BLE venous doppler negative for DVT Awaiting transfer to rehab at 1958 at 1031 RPT #:[id number] END OF REPORT 2022-01-06 13:02:00-00:00 [id number] [address] PATIENT NAME: SAÚL GILES ADMIT DATE: 2 ACCOUNT NO: [id number] ROOM NO: 3363 AGE: 76 REPORT TYPE: eECHOCARDIOGRAM REPORT SEX: F ADMITTING PHYSICIAN:Jeffry More MD ATTENDING PHYSICIAN:Jeffry More MD *[address] [address] Limited Transthoracic Echocardiogram Patient: Saúl Giles Study Date: 01/05/2022 BP: Location: [facility] URN: [id number] : 1945 Age: 76 Height: 64.2 in / 163 cm Gender: F Weight: 259 .6 lb / 118 kg BMI/BSA: 44.4 kg/m 2 / 2.38 m 2 *Ordering Physician: * Kena Macedo *Interpreting Physician: * Aruna Fortune MD *[employer]: * Judie Zamudio [facility] Indications: R/O EFFUSION. Study data: Transthoracic echocardiogram, limite d study. Procedure: Transthoracic echocardiography was performed. Im ages were obtained using a [a]list games cardiac ultrasound machine. Image quality w as adequate. Limited 2D and limited spectral Doppler. Location: Bedside. Patient status: Inpatient. Patient room number: 3363. Findings Left ventricle: The cavity size is normal. Systo lic function is normal. The estimated ejection fraction is 55-59%. Right ventricle: Not well visualized. The cavity size is mildly to moderately dilated. Pacer wire noted in the righ t ventricle. Ventricular septum: Abnormal septal motion. Left atrium: The atrium is dilated. PATIENT NAME: SAÚL GILES 332 Right atrium: The atrium is dilated. Pacer wire noted in right atrium. Mitral valve: There is a normally functioning bi oprosthesis. Tricuspid valve: The valve is structurally ramirez l. Pericardium: There is no pericardial effusion. Systemic veins: Inferior vena cava: The vessel is dilated. Respi rophasic changes in dimension are absent. Conclusions Summary: 1. Left ventricle: The cavity size is normal. Sy stolic function is normal. The estimated ejection fraction is 55-5 9%. 2. Right ventricle: The cavity size is mildly to moderately dilated. 3. Ventricular septum: Abnormal septal motion. 4. Left atrium: The atrium is dilated. 5. Right atrium: The atrium is dilated. 6. Mitral valve: There is a normally functioning bioprosthesis. Prepared and electronically signed by Aruna Fortune MD 01/06/2022 13:02 Electronically Signed by Aruna Fortune MD on at 1302 PATIENT NAME: SAÚL GILES [id number] 2022-01-06 11:31:00-00:00 [facility] REPORT#:[id number] REPORT STATUS: Signed DATE:01/06/22 TIME: 1131 PATIENT: SAÚL GILES UNIT #: [id number] ROOM/BED: [address] : 43 AGE: 76 SEX: F ATTEND: Leah More MD ADM AUTHOR: Suki Fuchs MD * ALL edits or amendments must be made on the [employer]/computer document * Subjective Chief complaint: chest pain HPI: This is a 76-year-old female who has past medica l history of hypertension, diabetes, coronary artery disease, atrial fibril lation who presented with worsening shortness of breath and on further wor k-up was 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 She was with normal kidney function prior to surgery and afte r her surgery she began to develop oliguria. Her procedure was done without any complications but after her surgery she did require pressor support for hypotension and she was intubated for respiratory acidosis and hypoxia a nd she was treated with vancomycin for infection treatment. When she was seen this morning she continued to have hypotension and her heart rate was paced by her permanent pacemaker and her urine outp ut was 20 to 30/h. Her family at bedside denied any history of kidney disease, kidney stone, chronic NSAID use or any urinary complaints. They also endorse that her b lood pressure and diabetes were mostly controlled. 01/06 Looking comfortable, tolerating orally.Walking w ith no difficulty. Objective General VS/I O: Vital Signs: Date Time Temp Pulse Resp B/P B/P Pulse O2 O2 Flow FiO2 Mean Ox Delivery Rate 01/06 1137 36.3 72 17 129/61 0.0 97 Nasal cannula 01/06 0909 76 16 146/65 94 99 01/06 0852 100 Nasal 3 32 cannula 01/06 0804 36.4 75 18 153/69 0.0 92 Nasal cannula 01/06 0800 Nasal 3 cannula 01/06 0501 36.5 74 14 143/87 0.0 100 01/06 0216 69 95 40 01/05 2351 36.4 73 17 125/75 92.1 97 01/05 2200 Nasal 3 cannula 01/05 2127 75 94 40 01/05 212 94 Nasal 3 cannula 01/05 2036 36.6 79 16 131/72 91.8 97 01/05 1644 36.4 76 20 136/78 97.2 99 Nasal cannula 24 hour I O ending at 0700: 01/06 0700 01/05 1900 Intake Total 250 600 Output Total 1600 1100 Balance -1350 -500 Intake, Oral 250 600 Number Voids 3 Output, Urine 1600 1100 Patient 117.4 kg Weight Weight Standing scale Measurement Method PATIENT WEIGHT: Weight (lb): 258 Weight (oz): 13.16 Weight (kg): 117.400 Physical Exam General appearance: alert, awake, oriented Head/eyes: atraumatic, normocephalic ENT: moist mucous membranes, normal nose Neck: no JVD, no lymphadenopathy Cardiovascular: normal heart sounds, regular rat e and rhythm Respiratory: aerating well, clear to auscultatio n Abdomen: soft, no pulsatile mass Genitourinary: urinary catheter Extremities: no gangrene, no swelling Treatment Prophylaxis Treatment Prophylaxis Drain(s)/tube(s): Drain(s)/tube(s): chest (x3) Diagnosis, Assessment Plan Free Text A P: This is a 76-year-old female known to have hyper tension, diabetes, atrial fibrillation, s/p permanent pacemaker and histor y of ablation presenting with shortness of breath and found to have multivesse l coronary artery disease therefore she had CABG on December 19 after which she has developed oliguria. Nephrology is following for: 1. Acute kidney injury: Most likely it i s prerenal (cardiorenal), she has been hypotensive postoperatively with require ment for pressor support and inotropic support. Plan is to increase inotropic support or pressor support to bring mean arterial pressure above 65 and give albumin with Lasix to see if it helps him diurese. If he does not respond to higher dose L asix with albumin then I will consider starting him on CRRT to prevent hyper v olemia. 2. Hypervolemia: Plan is to give Lasix a nd if he does not respond to start him on CRRT for extra fluid removal. 3. His electrolytes were all reviewed to be in normal range plan was to monitor and replace as needed. 4. He was receiving vancomycin so plan w as to monitor vancomycin trough levels to prevent ATN. 5/ Metabolic alkalosis secondary to diur etics : Plan to give acetazoleamide if worsening. . 01/02 1. Acute kidney injury: Resolved, she is respond ing to lasix. 2. Hypervolemia: Plan to continue lasix as tolerated.Today she was on low dose daily lasix. 3. Hypokalemia/hypomagnesemia:secondary to diure tics, plan was to monitor and replace as needed. 4. Metabolic alkalosis secondary to diuretics : acetazoleamide [id number] 01/03 1. Acute kidney injury: Resolved, she is respond ing to lasix. 2. Hypervolemia: Plan to continue lasix as tolerated.Today she was on low dose daily lasix. 3. Hypokalemia/hypomagnesemia:secondary to diure tics, plan was to monitor and replace as needed. 4. Metabolic alkalosis secondary to diuretics : acetazoleamide continued. Plan was to continue same as patient stable from volume and electrolyte standpoint. 01/04 1. Acute kidney injury: Resolved, she is respond ing to lasix. 2. Hypervolemia: Plan to continue lasix as tolerated.Today she was on low dose daily lasix. 3. Hypokalemia/hypomagnesemia:secondary to diure tics, plan was to monitor and replace as needed. 4. Metabolic alkalosis secondary to diuretics : acetazoleamide continued. Plan was to continue same as patient stable from volume and electrolyte standpoint. 01/05 1. Acute kidney injury: Resolved, she is respond ing to lasix. 2. Hypervolemia: Plan to continue lasix as tolerated.Today she was on low dose daily lasix. 3. Hypokalemia/hypomagnesemia:secondary to diure tics, plan was to monitor and replace as needed. 4. Metabolic alkalosis secondary to diuretics : acetazoleamide continued. Plan was to continue same as patient stable from volume and electrolyte standpoint. 01/06 1. Acute kidney injury: Resolved, she is respond ing to lasix. 2. Hypervolemia: Plan to continue lasix as tolerated.Today she was on low dose daily lasix.Switched IV to PO as she should resp ond to both at current volume status. 3. Hypokalemia/hypomagnesemia:secondary to diure tics, plan was to monitor and replace as needed. 4. Metabolic alkalosis secondary to diuretics : acetazoleamide continued. Consultants: cardiology, cardiovascular surgery, critical/hired help Electronically Signed by Suki Fuchs MD on at 1419 RPT #:[id number] END OF REPORT 2022-01-06 11:14:00-00:00 [facility]) Hospitalist Progress Note REPORT#:[id number] REPORT STATUS: Signed DATE:01/06/22 TIME: 1114 PATIENT: SAÚL GILES UNIT #: [id number] ROOM/BED: [place] [address] : 43 AGE: 76 SEX: F ATTEND: Leah More MD ADM AUTHOR: Meryl Rosa MD * ALL edits or amendments must be made on the [employer]/computer document * Subjective Chief complaint: she sit on the chair . acute respiratory failure --post CABG rehab placement -- pending bed -- may be tursday HPI: 76 years old female with PMH of macular degeneration, obesity, obstructive sleep apnea (CPAP at home), former smoker, hypertensio n, hyperlipidemia, diabetes, Crohn's disease, chronic atr ial fibrillation status post 3 ablations in the past (on Xarelto), pacemaker plac ement is admitted to the hospital post cardiac cath . she need CABG . she had sob for years . sob go t worse . she was admitted to the hospital in [place] . she had cath 3 we eks ago . she was reffered to here for stents placement . she had cath yesterd ay . it show multiple vessels CAD . she is recommend CABG . she still feel sob . no cp no nausea no vomiting no fever no abdominal pain no dizziness . Review of Systems Constitutional: Reports: generalized weakness. Denies: fever, le thargy. Respiratory: Reports: DOUGLASS (dyspnea on exertion), SOB. Denies: wheezing. Cardiovascular: Reports: DOUGLASS (dyspnea on exertion), edema. Denie s: chest pain, orthopnea, palpitations. GI: Reports: nausea. Denies: abdominal pain, vomitin g. : Denies: dysuria, flank pain, frequency. Neuro: Denies: dizziness. Objective General VS/I O: Vital Signs: Date Time Temp Pulse Resp B/P B/P Pulse O2 O2 F low FiO2 Mean Ox Delivery Rate 01/06 0909 76 16 146/65 94 99 01/07 852 100 Nasal 3 32 cannula 10/25 0804 36.4 75 18 153/69 0.0 92 Nasal cannula 01/06 0800 Nasal 3 cannula 01/06 0501 36.5 74 14 143/87 0.0 100 01/06 0216 69 95 40 01/05 2351 36.4 73 17 125/75 92.1 97 01/05 2200 Nasal 3 cannula 01/05 2127 75 94 40 01/05 2127 94 Nasal 3 cannula 01/05 2036 36.6 79 16 131/72 91.8 97 01/05 1644 36.4 76 20 136/78 97.2 99 Nasal cannula 01/05 1155 36.3 73 20 151/82 105.1 98 Nasal cannula 24 hour I O ending at 0700: 01/06 0700 01/05 1900 Intake Total 250 600 Output Total 1600 1100 Balance -1350 -500 Intake, Oral 250 600 Number Voids 3 Output, Urine 1600 1100 Patient 117.4 kg Weight Weight Standing scale Measurement Method PATIENT WEIGHT: Weight (lb): 258 Weight (oz): 13.16 Weight (kg): 117.400 Medications: Active Meds + DC'd Last 24 Hrs Potassium Chloride (POTASSIUM CHLORIDE 20MEQ TAB .ER) 20 MEQ Q2H PO (DC) Metoprolol Tartrate (LOPRESSOR) 25 MG Q12HR PO Acetazolamide (DIAMOX) 500 MG Q24H IV Furosemide (LASIX 40 mg/4 mL INJECTION) 40 MG D AILY IV Sterile Water (WATER FOR INJECTION) 5 ML ASDIR P RN IV Potassium Chloride (POTASSIUM CHLORIDE 20MEQ TAB .ER) 40 MEQ DAILY PRN PRN PO Insulin Glargine (Lantus/Semglee) 30 UNIT DAILY SUBQ Insulin Glargine (Lantus/Semglee) 20 UNIT BEDTIM E SUBQ Insulin Human Lispro (HUMALOG) 0 AC HS SUBQ Dextrose/Water (DEXTROSE 10% IN WATER) 125 ML DIR PRN IV (CKD) Dextrose/Water (DEXTROSE 10% IN WATER) 250 ML DIR PRN IV (CKD) Glucagon (GLUCAGON) 1 MG ASDIR PRN IM Amiodarone HCl (CORDARONE) 200 MG BID PO Sterile Water (WATER FOR INJECTION) 5 ML ASDIR P RN IV Sterile Water (WATER FOR INJECTION) 5 ML ASDIR P RN IV Sodium Chloride (SODIUM CHLORIDE) 4 ML RTBID NEB Melatonin (Melatonin) 3 MG BEDTIME PO Sodium Chloride (SODIUM CHLORIDE) 10 ML BID IV Sodium Chloride (SODIUM CHLORIDE) 10 ML ASDIR NE N IV Pantoprazole (PROTONIX) 40 MG DAILY PO Dexmedetomidine/Sodium Chloride (PRECEDEX 1000MC G/NS 250ML) 250 ML ASDIR IV Bisacodyl (DULCOLAX) 10 MG DAILY PRN PRN RECTAL Lactulose (LACTULOSE) 20 GM DAILY PRN PRN PO Magnesium Hydroxide (MILK OF MAGNESIA) 30 ML PETER LY PRN PRN PO Aspirin (ASPIRIN) 81 MG DAILY PO Clopidogrel Bisulfate (Plavix) 75 MG DAILY PO Cyanocobalamin (Vitamin B-12 500 mcg tab) 500 MC G DAILY PO Ferrous Sulfate (FERROUS SULFATE) 325 MG DAILY P O Metolazone (metOLazone) 5 MG DAILY PO Polyethylene Glycol (MIRALAX) 17 GM DAILY PO Atorvastatin Calcium (LIPITOR) 40 MG 2100 PO Docusate Sodium (DOCUSATE SODIUM) 100 MG BID PO Senna (SENOKOT) 17.6 MG BEDTIME PO Acetaminophen (TYLENOL) 650 MG Q4H PRN PRN PO Acetylcysteine (MUCOMYST FOR RT) 200 MG RTQ6H NE B Albuterol/Ipratropium (DUONEB) 3 ML RTQ6H NEB Bisacodyl (DULCOLAX) 10 MG ONCE PRN RECTAL Dopamine HCl/Dextrose (DOPamine 400MG/D5W 250ML) 250 ML ASDIR IV Milrinone Lactate/Dextrose (MILRINONE 20MG/D5W 1 00ML) 100 ML ASDIR IV ( CKD) Vasopressin (VASOSTRICT 20 Unit/NS 100ML) 100 ML ASDIR IV (CKD) Acetaminophen (TYLENOL) 650 MG Q4H PRN PRN RECTA L Calcium Chloride (CALCIUM CHLORIDE) 1 GM ASDIR P RN IV Magnesium Sulfate (MAGNESIUM SULFATE 4GM/SWFI 10 0ML) 100 ML ASDIR PRN IV Magnesium Sulfate (MAGNESIUM SULFATE 2GM/SWFI 50 ML) 50 ML ASDIR PRN IV Magnesium Sulfate/Dextrose (MAGNESIUM SULFATE 1G M/D5W 100ML) 100 ML ASDIR PRN IV Nitroglycerin/Dextrose (NITROGLYCERIN 50,000MCG/ D5W 250ML) 250 ML ASDIR IV Norepinephrine Bitartrate (NOREPINEPHRINE 8 MG/N S 250 ML) 250 ML TITRATE IV Potassium Chloride (KCL 20MEQ/SWFI 100ML) 100 ML ASDIR PRN IV Sodium Bicarbonate (SODIUM BICARBONATE) 50 MEQ A SDIR PRN IV Ondansetron HCl (ZOFRAN) 4 MG Q6H PRN PRN IV Physical Exam General appearance: alert, awake, oriented Head/Eyes: atraumatic, normal conjunctiva/sclera , normal eyelids/periorb., normocephalic Neck: full range of motion, non-tender, no JVD Cardiovascular: normal heart sounds, regular rat e rhythm Respiratory: decreased breath sounds, clear to a uscultation Abdomen: non-tender, normal bowel sounds, soft, no distention Extremities: edema, moves all, no calf tendernes s Musculoskeletal: decreased ROM 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, 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 Skin: dry, intact Psychiatry: normal affect, normal mood Results Findings/Data: Laboratory Tests 01/06 01/06 01/05 01/05 01/05 0757 0320 2035 1641 1150 Chemistry Sodium (134 - 147 mEq/L) 143 Potassium (3.4 - 5.0 mEq/L) 3.2 L Chloride (100 - 108 mEq/L) 101 Carbon Dioxide (21 - 33 mEq/l) 36 H Anion Gap (0 - 20) 9 BUN (7 - 18 mg/dL) 29 H Creatinine (0.6 - 1.3 mg/dL) 1.1 Glomerular Filtr Rate (70 - 80) 48.0 L Glucose (70 - 110 mg/dL) 115 H POC Glucose (70 - 110 MG/DL) 105 162 H 140 H 21 5 H Calcium (8.0 - 10.5 mg/dL) 9.4 Magnesium (1.80 - 2.40 mg/dL) 1.86 Laboratory Tests 01/06 0320 Hematology WBC (4.5 - 11.0 x10 3/uL) 5.7 RBC (3.54 - 5.02 x10 6/uL) 2.29 L Hgb (11.0 - 15.0 g/dL) 8.1 L Hct (33.0 - 45.0 %) 25.6 L MCV (81.0 - 99.0 fL) 111.8 H MCH (27.0 - 33.0 pg) 35.4 H MCHC (33.0 - 37.0 g/dL) 31.6 L RDW (11.5 - 14.5 %) 18.7 H Plt Count (150 - 400 x10 3/uL) 244 MPV (7.0 - 9.0 fL) 10.8 H Neut % (Auto) (56.0 - 77.0 %) 77.4 H Lymph % (Auto) (14.0 - 32.0 %) 7.8 L Barron % (Auto) (4.8 - 9.0 %) 11.7 H Eos % (Auto) (0.3 - 3.7 %) 1.6 Baso % (Auto) (0.0 - 2.0 %) 0.3 Neut # (Auto) (2.0 - 7.6 x10 3/uL) 4.44 Lymph # (Auto) (1.0 - 3.8 x10 3/uL) 0.45 L Barron # (Auto) (0.1 - 0.8 x10 3/uL) 0.67 Eos # (Auto) (0.0 - 0.2 x10 3/uL) 0.09 Baso # (Auto) (0.0 - 0.2 x10 3/uL) 0.02 Abs Immat Gran (auto) (0.00 - 0.03 x10 3/uL) 0. 07 H Add Manual Diff NO Immature Gran % (0.0 - 2.0 %) 1.2 Nucleated RBC % (0 - 0 %) 0.5 H Nucleated RBCs # (Man) (0.0 - 0.1 x10 3/uL) 0.0 3 Radiology data: Recent Impressions: ULTRASOUND - DUP VEIN OLLIE 01/06 602 Report Impression - Status: SIGNED Entered: 01/06/2022626 IMPRESSION: No evidence of deep vein thrombosis. Impression By: AureliaBJMQuincy - Enrico Goss Treatment Prophylaxis Treatment Prophylaxis Drain(s)/tube(s): Drain(s)/tube(s): chest (x3) Diagnosis, Assessment Plan Consultants: cardiology, cardiovascular surgery, critical/hired help Free Text DxA P Notes Free text DxA P notes: 76 years old female with PMH of macular degeneration, obesity, obstructive sleep apnea (CPAP at home), former smoker, hypertensio n, hyperlipidemia, diabetes, Crohn's disease, chronic atr ial fibrillation status post 3 ablations in the past (on Xarelto), pacemaker placement CAD -- multiple vesssels HTN DM HLD Crohn's disease chronic atrial fibrillation status post 3 ablati ons macular degeneration obesity obstructive sleep apnea acute respiratory failure --post surgery severe mitral valve regurgitation constrictive pericarditis CAD -- cardiology consult CV surgeon consult CABG -- AM ASA/lipitor afib -- rate control -- hold xarelto for surgery HTN-- continue home med DM-- on lantus -- sliding scale HLD-- on lipitor RONA--cpap as need DVTP -- heparin 12/18- feel sob -- CABG -- afternoon 12/19--post MVR (31 Magna valve), CABG x 1 (ROBERTS- LAD), ILAA and pericardectomy -- she remain intubated on the vent -- chest tube are in place -on levophed and epinephrine drip -- monitor in CCU 12/20- she was extubated --on bipap now -- NPO --off Levophed/epinephrine, continue vasopressi n, inotropes with milrinone, -- chest tube remain in place -- she is stable post surgery 12/21-- she is on high flow O2 -- edema --lasix --chest tube in place --- she is hemodynamic stable -- continue monitor in CCU 12/22- she remain on high O2 CXR show worsening pulmonary venous vascular co ngestion. --lasix iv tid -- chest tube are out -- off drips -- NPO -- start TPN -- continue monitor in CCU 12/23- she remain on high flow O2 --less edema -- on TPN -- she is hemodynamic stable -- continue monitor in CVICU 12/24- she get better -- she is out bed and sit on the chair -- start ambulate with PT -- continue current management 12/25- she is doing well with PT remain on o2 continue iv lasix / add diamox continue supportive care continue monitor in CVICU 12/26- she is on bipap -- she remain sob and edema -- may start lasix drip as nurse -- continue supportive care 12/27 On lasix and insulin drips. Back on lantus dose BID, trend glucose. Continue PT/OT. 12/28 Increase lantus BID. 12/29-- she remain on bipap -- sob and edema --lasiv and diamox iv bid -- FS -- better control -- continue monitor in CVICU 12/30- she improve --less sob and edema -- she tolerance diet -- continue lasix -- continue PT/OT 12/31-- less sob and edema - -- ABG -- review -- improve -- continue lasix -- CM --LTAC evaluation 01/01- she improve now --she is on O2 -- NC 2 --lasix 40 mg iv qd -- continue PT/OT -- rehab placement as rehab 01/03 -- she feel tire . less sob -- no bed in rehab now -- continue monitor in the hospital -- rehab placement -- bed may be avalaible nest tursday as CM -- continue PT/OT -- replace K 01/04-- she is weak . she still feel sob -- continue PT/OT -- rehab --pending bed 01/05 Potassium low, replace, labs AM. Continue PT/OT and await placement. 01/06- replace K -- continue PT/OT -- rehab placement --pending Electronically Signed by Meryl Rosa MD on 2 at 111[address] [facility] #:[id number] END OF REPORT 2022-01-05 18:48:00-00:00 [facility] ([facility] Nephrology Progress Note REPORT#:[id number] REPORT STATUS: Signed DATE:01/05/22 TIME: 1847 PATIENT: SAÚL GILES UNIT #: [id number] ROOM/BED: 3363[address]1 : 43 AGE: 76 SEX: F ATTEND: Leah More MD ADM AUTHOR: Suki Fuchs MD * ALL edits or amendments must be made on the [employer]/computer document * Subjective Chief complaint: chest pain HPI: This is a 76-year-old female who has past medica l history of hypertension, diabetes, coronary artery disease, atrial fibril lation who presented with worsening shortness of breath and on further wor k-up was 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 She was with normal kidney function prior to surgery and afte r her surgery she began to develop oliguria. Her procedure was done without any complications but after her surgery she did require pressor support for hypotension and she was intubated for respiratory acidosis and hypoxia a nd she was treated with vancomycin for infection treatment. When she was seen this morning she continued to have hypotension and her heart rate was paced by her permanent pacemaker and her urine outp ut was 20 to 30/h. Her family at bedside denied any history of kidney disease, kidney stone, chronic NSAID use or any urinary complaints. They also endorse that her b lood pressure and diabetes were mostly controlled. 01/05 Looking comfortable, tolerating orally.Walking w ith no difficulty. Objective General VS/I O: Vital Signs: Date Time Temp Pulse Resp B/P B/P Pulse O2 O2 F low FiO2 Mean Ox Delivery Rate 01/06 2036 36.6 79 16 131/72 91.8 97 01/05 1644 36.4 76 20 136/78 97.2 99 Nasal cannula 01/05 1155 36.3 73 20 151/82 105.1 98 Nasal cannula 01/05 0930 100 Nasal 3 cannula 01/05 0800 Nasal 3 cannula 01/05 0754 36.4 75 23 136/78 97.0 94 Nasal cannula 01/05 0406 36.4 71 18 129/76 93.6 91 01/05 0329 72 99 40 01/05 0058 36.4 72 16 135/76 95.9 94 24 hour I O ending at 0700: 01/05 0700 01/04 1900 Intake Total 250 450 Output Total 500 1200 Balance -250 -750 Intake, Oral 250 450 Number 2 Bowel Movements Output, Urine 500 1200 Patient 118.2 kg Weight Weight Standing scale Measurement Method PATIENT WEIGHT: Weight (lb): 260 Weight (oz): 9.38 Weight (kg): 118.200 Physical Exam General appearance: alert, awake, oriented Head/eyes: atraumatic, normocephalic ENT: moist mucous membranes, normal nose Neck: no JVD, no lymphadenopathy Cardiovascular: normal heart sounds, regular rat e and rhythm Respiratory: aerating well, clear to auscultatio n Abdomen: soft, no pulsatile mass Genitourinary: urinary catheter Extremities: no gangrene, no swelling Treatment Prophylaxis Treatment Prophylaxis Drain(s)/tube(s): Drain(s)/tube(s): chest (x3) Diagnosis, Assessment Plan Free Text A P: This is a 76-year-old female known to have hyper tension, diabetes, atrial fibrillation, s/p permanent pacemaker and histor y of ablation presenting with shortness of breath and found to have multivesse l coronary artery disease therefore she had CABG on December 19 after which she has developed oliguria. Nephrology is following for: 1. Acute kidney injury: Most likely it i s prerenal (cardiorenal), she has been hypotensive postoperatively with require ment for pressor support and inotropic support. Plan is to increase inotropic support or pressor support to bring mean arterial pressure above 65 and give albumin with Lasix to see if it helps him diurese. If he does not respond to higher dose L asix with albumin then I will consider starting him on CRRT to prevent hyper v olemia. 2. Hypervolemia: Plan is to give Lasix a nd if he does not respond to start him on CRRT for extra fluid removal. 3. His electrolytes were all reviewed to be in normal range plan was to monitor and replace as needed. 4. He was receiving vancomycin so plan w as to monitor vancomycin trough levels to prevent ATN. 5/ Metabolic alkalosis secondary to diur etics : Plan to give acetazoleamide if worsening. . 01/02 1. Acute kidney injury: Resolved, she is respond ing to lasix. 2. Hypervolemia: Plan to continue lasix as tolerated.Today she was on low dose daily lasix. 3. Hypokalemia/hypomagnesemia:secondary to diure tics, plan was to monitor and replace as needed. 4. Metabolic alkalosis secondary to diuretics : acetazoleamide [id number] 01/03 1. Acute kidney injury: Resolved, she is respond ing to lasix. 2. Hypervolemia: Plan to continue lasix as tolerated.Today she was on low dose daily lasix. 3. Hypokalemia/hypomagnesemia:secondary to diure tics, plan was to monitor and replace as needed. 4. Metabolic alkalosis secondary to diuretics : acetazoleamide continued. Plan was to continue same as patient stable from volume and electrolyte standpoint. 01/04 1. Acute kidney injury: Resolved, she is respond ing to lasix. 2. Hypervolemia: Plan to continue lasix as tolerated.Today she was on low dose daily lasix. 3. Hypokalemia/hypomagnesemia:secondary to diure tics, plan was to monitor and replace as needed. 4. Metabolic alkalosis secondary to diuretics : acetazoleamide continued. Plan was to continue same as patient stable from volume and electrolyte standpoint. 01/05 1. Acute kidney injury: Resolved, she is respond ing to lasix. 2. Hypervolemia: Plan to continue lasix as tolerated.Today she was on low dose daily lasix. 3. Hypokalemia/hypomagnesemia:secondary to diure tics, plan was to monitor and replace as needed. 4. Metabolic alkalosis secondary to diuretics : acetazoleamide continued. Plan was to continue same as patient stable from volume and electrolyte standpoint. Consultants: cardiology, cardiovascular surgery, critical/hired help Electronically Signed by Suki Fuchs MD on at 2158 RPT #:[id number] END OF REPORT 2022-01-05 13:36:00-00:00 [facility]L [facility] Cardiothoracic Surgery Prog REPORT#:[id number] REPORT STATUS: Signed DATE:01/05/22 TIME: 1336 PATIENT: SAÚL GILES UNIT #: [id number] ROOM/BED: [address] : [address] AGE: 76 SEX: F ATTEND: Leah More MD ADM AUTHOR: Kena Macedo * ALL edits or amendments must be made on the [employer]/computer document * General Status post: 1. Mitral valve replacement (31 Magna valve). 2. Coronary artery bypass graft surgery x1 (ROBERTS to LAD). 3. Isolation of left atrial appendage. 4. Pericardiectomy. Subjective Chief complaint: Follow up MVR Review of Systems Constitutional: Denies: fever, malaise. Allergy/Immun: Denies: allergic reaction. ENT: Denies: sore throat. Respiratory: Denies: SOB. GI: Denies: abdominal pain. Heme: Denies: bleeding. Neuro: Denies: focal weakness, headache. All systems rev neg: except as marked Objective General VS/I O Last Documented: Result Date Time Pulse Ox 98 01/05 115 B/P 151/82 01/05 1155 B/P Mean 105.1 01/05 1155 O2 Delivery Nasal cannula 01/05 1155 Temp 97.3 01/05 1155 Pulse 73 01/05 1155 Resp 20 01/05 1155 O2 Flow Rate 3 01/05 0930 FiO2 40 01/05 0329 24 hour I O ending at 0700: 01/05 0700 01/04 1900 Intake Total 250 450 Output Total 500 1200 Balance -250 -750 Intake, Oral 250 450 Number 2 Bowel Movements Output, Urine 500 1200 Patient 261 lb Weight Weight Standing scale Measurement Method PATIENT WEIGHT: Weight (lb): 260 Weight (oz): 9.38 Weight (kg): 118.200 Physical Exam General appearance: obese, a lert, oriented, mental status normal, no respiratory distress Wound/incision: Location: sternal Site condition: edges approximated, incision in tact, no drainage HEENT: anicteric Neck: supple/no meningismus Cardiovascular: normal heart sounds, regular rat e rhythm Respiratory: aerating well, symmetric expansion, no distress Abdomen: soft, non-tender Extremities: moves all 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, 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, normal speech Skin: dry, intact, normal temperature Psychiatry: normal affect, normal mood Current Medications Medications: Active Meds + DC'd Last 24 Hrs Potassium Chloride (POTASSIUM CHLORIDE 20MEQ TAB .ER) 40 MEQ ONCE ONE PO (DC) Potassium Chloride (POTASSIUM CHLORIDE 20MEQ TAB .ER) 40 MEQ ONCE ONE PO (DC) Metoprolol Tartrate (LOPRESSOR) 25 MG Q12HR PO Acetazolamide (DIAMOX) 500 MG Q24H IV Furosemide (LASIX 40 mg/4 mL INJECTION) 40 MG DA EMELIA IV Sterile Water (WATER FOR INJECTION) 5 ML ASDIR P RN IV Potassium Chloride (POTASSIUM CHLORIDE 20MEQ TAB .ER) 40 MEQ DAILY PRN PRN PO Insulin Glargine (Lantus/Semglee) 30 UNIT DAILY SUBQ Insulin Glargine (Lantus/Semglee) 20 UNIT BEDTIM E SUBQ Insulin Human Lispro (HUMALOG) 0 AC HS SUBQ Dextrose/Water (DEXTROSE 10% IN WATER) 125 ML DIR PRN IV (CKD) Dextrose/Water (DEXTROSE 10% IN WATER) 250 ML DIR PRN IV (CKD) Glucagon (GLUCAGON) 1 MG ASDIR PRN IM Amiodarone HCl (CORDARONE) 200 MG BID PO Sterile Water (WATER FOR INJECTION) 5 ML ASDIR P RN IV Sterile Water (WATER FOR INJECTION) 5 ML ASDIR P RN IV Sodium Chloride (SODIUM CHLORIDE) 4 ML RTBID NEB Melatonin (Melatonin) 3 MG BEDTIME PO Sodium Chloride (SODIUM CHLORIDE) 10 ML BID IV Sodium Chloride (SODIUM CHLORIDE) 10 ML ASDIR NE N IV Pantoprazole (PROTONIX) 40 MG DAILY PO Dexmedetomidine/Sodium Chloride (PRECEDEX 1000MC G/NS 250ML) 250 ML ASDIR IV Bisacodyl (DULCOLAX) 10 MG DAILY PRN PRN RECTAL Lactulose (LACTULOSE) 20 GM DAILY PRN PRN PO Magnesium Hydroxide (MILK OF MAGNESIA) 30 ML PETER LY PRN PRN PO Aspirin (ASPIRIN) 81 MG DAILY PO Clopidogrel Bisulfate (Plavix) 75 MG DAILY PO Cyanocobalamin (Vitamin B-12 500 mcg tab) 500 MC G DAILY PO Ferrous Sulfate (FERROUS SULFATE) 325 MG DAILY P O Metolazone (metOLazone) 5 MG DAILY PO Polyethylene Glycol (MIRALAX) 17 GM DAILY PO Atorvastatin Calcium (LIPITOR) 40 MG 2100 PO Docusate Sodium (DOCUSATE SODIUM) 100 MG BID PO Senna (SENOKOT) 17.6 MG BEDTIME PO Acetaminophen (TYLENOL) 650 MG Q4H PRN PRN PO Acetylcysteine (MUCOMYST FOR RT) 200 MG RTQ6H NE B Albuterol/Ipratropium (DUONEB) 3 ML RTQ6H NEB Bisacodyl (DULCOLAX) 10 MG ONCE PRN RECTAL Dopamine HCl/Dextrose (DOPamine 400MG/D5W 250ML) 250 ML ASDIR IV Milrinone Lactate/Dextrose (MILRINONE 20MG/D5W 1 00ML) 100 ML ASDIR IV ( CKD) Vasopressin (VASOSTRICT 20 Unit/NS 100ML) 100 ML ASDIR IV (CKD) Acetaminophen (TYLENOL) 650 MG Q4H PRN PRN RECTA L Calcium Chloride (CALCIUM CHLORIDE) 1 GM ASDIR P RN IV Magnesium Sulfate (MAGNESIUM SULFATE 4GM/SWFI 10 0ML) 100 ML ASDIR PRN IV Magnesium Sulfate (MAGNESIUM SULFATE 2GM/SWFI 50 ML) 50 ML ASDIR PRN IV Magnesium Sulfate/Dextrose (MAGNESIUM SULFATE 1G M/D5W 100ML) 100 ML ASDIR PRN IV Nitroglycerin/Dextrose (NITROGLYCERIN 50,000MCG/ D5W 250ML) 250 ML ASDIR IV Norepinephrine Bitartrate (NOREPINEPHRINE 8 MG/N S 250 ML) 250 ML TITRATE IV Potassium Chloride (KCL 20MEQ/SWFI 100ML) 100 ML ASDIR PRN IV Sodium Bicarbonate (SODIUM BICARBONATE) 50 MEQ A SDIR PRN IV Ondansetron HCl (ZOFRAN) 4 MG Q6H PRN PRN IV Results Findings/Data: Laboratory Tests 01/05 01/05 01/05 01/04 01/04 1150 0749 0245 2003 1534 Chemistry Sodium (134 - 147 mEq/L) 145 Potassium (3.4 - 5.0 mEq/L) 3.3 L Chloride (100 - 108 mEq/L) 102 Carbon Dioxide (21 - 33 mEq/l) 36 H Anion Gap (0 - 20) 10 BUN (7 - 18 mg/dL) 26 H Creatinine (0.6 - 1.3 mg/dL) 1.0 Glomerular Filtr Rate (70 - 80) 53.6 L Glucose (70 - 110 mg/dL) 94 POC Glucose (70 - 110 MG/DL) 215 H 104 108 259 H Calcium (8.0 - 10.5 mg/dL) 9.4 Magnesium (1.80 - 2.40 mg/dL) 1.91 Laboratory Tests 01/05 0330 Hematology WBC (4.5 - 11.0 x10 3/uL) 7.0 RBC (3.54 - 5.02 x10 6/uL) 2.41 L Hgb (11.0 - 15.0 g/dL) 8.3 L Hct (33.0 - 45.0 %) 26.4 L MCV (81.0 - 99.0 fL) 109.5 H MCH (27.0 - 33.0 pg) 34.4 H MCHC (33.0 - 37.0 g/dL) 31.4 L RDW (11.5 - 14.5 %) 19.3 H Plt Count (150 - 400 x10 3/uL) 230 MPV (7.0 - 9.0 fL) 11.2 H Neut % (Auto) (56.0 - 77.0 %) 79.9 H Lymph % (Auto) (14.0 - 32.0 %) 6.3 L Barron % (Auto) (4.8 - 9.0 %) 10.4 H Eos % (Auto) (0.3 - 3.7 %) 1.6 Baso % (Auto) (0.0 - 2.0 %) 0.4 Neut # (Auto) (2.0 - 7.6 x10 3/uL) 5.62 Lymph # (Auto) (1.0 - 3.8 x10 3/uL) 0.44 L Barron # (Auto) (0.1 - 0.8 x10 3/uL) 0.73 Eos # (Auto) (0.0 - 0.2 x10 3/uL) 0.11 Baso # (Auto) (0.0 - 0.2 x10 3/uL) 0.03 Abs Immat Gran (auto) (0.00 - 0.03 x10 3/uL) 0. 10 H Add Manual Diff NO Immature Gran % (0.0 - 2.0 %) 1.4 Nucleated RBC % (0 - 0 %) 0.7 H Nucleated RBCs # (Man) (0.0 - 0.1 x10 3/uL) 0.0 5 Diagnosis, Assessment Plan Free Text A P: Ambulate Encourage incentive spirometry Diuresis per nephrology Discharge planning 01/05 Patient is sleepy but arousable and oriented. Respiratory support with nasal cannula 2 L. Wean to keep O2 sats greater 90% Echo to rule out pericardial effusion BLE venous Doppler to rule out DVT Diuresis per nephrology. Electrolytes replaced Hopefully she can transfer to rehab tomorrow Consultants: cardiology, cardiovascular surgery, critical/hired help at 1343 at 1010 RPT #:[id number] END OF REPORT 2022-01-05 11:04:00-00:00 [facility] ([facility]) Cardiology Progress Note REPORT#:[id number] REPORT STATUS: Signed DATE:01/05/22 TIME: 1104 PATIENT: SAÚL GILES UNIT #: [id number] ROOM/BED: [place] [address] : 43 AGE: 76 SEX: F ATTEND: Ayala More MD ADM AUTHOR: Isabella Clemens PHP MYSQL DEVELOPER * ALL edits or amendments must be made on the el oLyferonic/computer document * Subjective Comments: OOB to chair, no acute issue overnight, still with significant bilateral lower extremity edema Objective General VS/I O: 24 hour I O ending at 0700: 01/05 0700 01/04 1900 Intake Total 250 450 Output Total 500 1200 Balance -250 -750 Intake, Oral 250 450 Number 2 Bowel Movements Output, Urine 500 1200 Patient 118.2 kg Weight Weight Standing scale Measurement Method Vital Signs: Date Time Temp Pulse Resp B/P B/P Pulse O2 O2 F low FiO2 Mean Ox Delivery Rate 01/05 0930 100 Nasal 3 cannula 01/05 0800 Nasal 3 cannula 01/05 0754 36.4 75 23 136/78 97.0 94 Nasal cannula 01/05 0406 36.4 71 18 129/76 93.6 91 01/05 0329 72 99 40 01/05 0058 36.4 72 16 135/76 95.9 94 01/04 2145 Nasal 3 cannula 01/04 212 69 94 40 01/05 2120 92 Nasal 4 cannula 01/04 2052 36.4 74 18 133/73 92.9 93 01/04 1715 36.6 75 14 141/63 0.0 91 Nasal cannula 01/04 1559 98 Nasal 4 cannula 01/04 1129 100 Nasal 4 cannula PATIENT WEIGHT: Weight (lb): 260 Weight (oz): 9.38 Weight (kg): 118.200 Medications: Active Meds + DC'd Last 24 Hrs Potassium Chloride (POTASSIUM CHLORIDE 20MEQ TAB .ER) 40 MEQ ONCE ONE PO (DC) Potassium Chloride (POTASSIUM CHLORIDE 20MEQ TAB .ER) 40 MEQ ONCE ONE PO (DC) Metoprolol Tartrate (LOPRESSOR) 25 MG Q12HR PO Acetazolamide (DIAMOX) 500 MG Q24H IV Furosemide (LASIX 40 mg/4 mL INJECTION) 40 MG DA EMELIA IV Sterile Water (WATER FOR INJECTION) 5 ML ASDIR P RN IV Potassium Chloride (POTASSIUM CHLORIDE 20MEQ TAB .ER) 40 MEQ DAILY PRN PRN PO Insulin Glargine (Lantus/Semglee) 30 UNIT DAILY SUBQ Insulin Glargine (Lantus/Semglee) 20 UNIT BEDTIM E SUBQ Insulin Human Lispro (HUMALOG) 0 AC HS SUBQ Dextrose/Water (DEXTROSE 10% IN WATER) 125 ML DIR PRN IV (CKD) Dextrose/Water (DEXTROSE 10% IN WATER) 250 ML DIR PRN IV (CKD) Glucagon (GLUCAGON) 1 MG ASDIR PRN IM Amiodarone HCl (CORDARONE) 200 MG BID PO Sterile Water (WATER FOR INJECTION) 5 ML ASDIR P RN IV Sterile Water (WATER FOR INJECTION) 5 ML ASDIR P RN IV Sodium Chloride (SODIUM CHLORIDE) 4 ML RTBID NEB Melatonin (Melatonin) 3 MG BEDTIME PO Sodium Chloride (SODIUM CHLORIDE) 10 ML BID IV Sodium Chloride (SODIUM CHLORIDE) 10 ML ASDIR NE N IV Pantoprazole (PROTONIX) 40 MG DAILY PO Dexmedetomidine/Sodium Chloride (PRECEDEX 1000MC G/NS 250ML) 250 ML ASDIR IV Bisacodyl (DULCOLAX) 10 MG DAILY PRN PRN RECTAL Lactulose (LACTULOSE) 20 GM DAILY PRN PRN PO Magnesium Hydroxide (MILK OF MAGNESIA) 30 ML PETER LY PRN PRN PO Aspirin (ASPIRIN) 81 MG DAILY PO Clopidogrel Bisulfate (Plavix) 75 MG DAILY PO Cyanocobalamin (Vitamin B-12 500 mcg tab) 500 MC G DAILY PO Ferrous Sulfate (FERROUS SULFATE) 325 MG DAILY P O Metolazone (metOLazone) 5 MG DAILY PO Polyethylene Glycol (MIRALAX) 17 GM DAILY PO Atorvastatin Calcium (LIPITOR) 40 MG 2100 PO Docusate Sodium (DOCUSATE SODIUM) 100 MG BID PO Senna (SENOKOT) 17.6 MG BEDTIME PO Acetaminophen (TYLENOL) 650 MG Q4H PRN PRN PO Acetylcysteine (MUCOMYST FOR RT) 200 MG RTQ6H NE B Albuterol/Ipratropium (DUONEB) 3 ML RTQ6H NEB Bisacodyl (DULCOLAX) 10 MG ONCE PRN RECTAL Dopamine HCl/Dextrose (DOPamine 400MG/D5W 250ML) 250 ML ASDIR IV Milrinone Lactate/Dextrose (MILRINONE 20MG/D5W 1 00ML) 100 ML ASDIR IV ( CKD) Vasopressin (VASOSTRICT 20 Unit/NS 100ML) 100 ML ASDIR IV (CKD) Acetaminophen (TYLENOL) 650 MG Q4H PRN PRN RECTA L Calcium Chloride (CALCIUM CHLORIDE) 1 GM ASDIR P RN IV Magnesium Sulfate (MAGNESIUM SULFATE 4GM/SWFI 10 0ML) 100 ML ASDIR PRN IV Magnesium Sulfate (MAGNESIUM SULFATE 2GM/SWFI 50 ML) 50 ML ASDIR PRN IV Magnesium Sulfate/Dextrose (MAGNESIUM SULFATE 1G M/D5W 100ML) 100 ML ASDIR PRN IV Nitroglycerin/Dextrose (NITROGLYCERIN 50,000MCG/ D5W 250ML) 250 ML ASDIR IV Norepinephrine Bitartrate (NOREPINEPHRINE 8 MG/N S 250 ML) 250 ML TITRATE IV Potassium Chloride (KCL 20MEQ/SWFI 100ML) 100 ML ASDIR PRN IV Sodium Bicarbonate (SODIUM BICARBONATE) 50 MEQ A SDIR PRN IV Ondansetron HCl (ZOFRAN) 4 MG Q6H PRN PRN IV Pacemaker: permanent Physical Exam General appearance: obese, alert, awake, no acut e distress ENT: normal nose Neck: no JVD Cardiovascular: CV assessment: pedal edema, regular rate and rh ythm Respiratory: decreased breath sounds, on oxygen, shortness of breath, no distress Abdomen: obese Genitourinary: no flank pain, no urinary cathete r Upper extremity: UE assessment: normal temperature, no edema Lower extremity: LE assessment: edema 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, 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 Skin: dry Psychiatry: normal affect, normal mood Results Findings/Data: Laboratory Tests 01/05 01/05 01/04 01/04 0749 0245 2003 1534 Chemistry Sodium (134 - 147 mEq/L) 145 Potassium (3.4 - 5.0 mEq/L) 3.3 L Chloride (100 - 108 mEq/L) 102 Carbon Dioxide (21 - 33 mEq/l) 36 H Anion Gap (0 - 20) 10 BUN (7 - 18 mg/dL) 26 H Creatinine (0.6 - 1.3 mg/dL) 1.0 Glomerular Filtr Rate (70 - 80) 53.6 L Glucose (70 - 110 mg/dL) 94 POC Glucose (70 - 110 MG/DL) 104 108 259 H Calcium (8.0 - 10.5 mg/dL) 9.4 Magnesium (1.80 - 2.40 mg/dL) 1.91 Laboratory Tests 01/05 0330 Hematology WBC (4.5 - 11.0 x10 3/uL) 7.0 RBC (3.54 - 5.02 x10 6/uL) 2.41 L Hgb (11.0 - 15.0 g/dL) 8.3 L Hct (33.0 - 45.0 %) 26.4 L MCV (81.0 - 99.0 fL) 109.5 H MCH (27.0 - 33.0 pg) 34.4 H MCHC (33.0 - 37.0 g/dL) 31.4 L RDW (11.5 - 14.5 %) 19.3 H Plt Count (150 - 400 x10 3/uL) 230 MPV (7.0 - 9.0 fL) 11.2 H Neut % (Auto) (56.0 - 77.0 %) 79.9 H Lymph % (Auto) (14.0 - 32.0 %) 6.3 L Barron % (Auto) (4.8 - 9.0 %) 10.4 H Eos % (Auto) (0.3 - 3.7 %) 1.6 Baso % (Auto) (0.0 - 2.0 %) 0.4 Neut # (Auto) (2.0 - 7.6 x10 3/uL) 5.62 Lymph # (Auto) (1.0 - 3.8 x10 3/uL) 0.44 L Barron # (Auto) (0.1 - 0.8 x10 3/uL) 0.73 Eos # (Auto) (0.0 - 0.2 x10 3/uL) 0.11 Baso # (Auto) (0.0 - 0.2 x10 3/uL) 0.03 Abs Immat Gran (auto) (0.00 - 0.03 x10 3/uL) 0. 10 H Add Manual Diff NO Immature Gran % (0.0 - 2.0 %) 1.4 Nucleated RBC % (0 - 0 %) 0.7 H Nucleated RBCs # (Man) (0.0 - 0.1 x10 3/uL) 0. 05 Laboratory Tests 01/05 0245 Chemistry Magnesium (1.80 - 2.40 mg/dL) 1.91 Telemetry Interpretation: V paced Diagnosis, Assessment Plan Plan discussed with: patient, consultants (renal ) Free Text DxA P Notes Free Text DxA P Notes: Ms Giles is a 76 y/o Femal w / PMHx: CAD, HLD, T2DM, RONA (CPAP at home), smoker, Crohn's disease, AF s/p ablation (on Xarelto), s /p PPM and lymphedema. Dr. Fortune is consulted for CAD s/p CABG, MVR. 1. CAD s/p CABG, MVR, and ILAA. post-op per CTS and critical care On Plavix, aspirin, beta-delma, statin volume management per Nephrology negative fluid balance 2. Chronic AF s/p PPM/ablation. had ILAA during bypass no need for AC 3. Hypertension continue metoprolol tartrate to 25 mg BID 4. Hyperlipidemia Continue statins. 5. Crohn's disease. Per IM. 6. MARCELLO - resolving per Nephrology 7. Resp insufficiency BiPAP as needed on Nasal cannula Slowly improving 8. Acute on chronic diastolic CHF/volume overloa d remains volume overloaded diuretic management per nephrology/CTS Slowly improving continue supportive care PT OT awaiting inpatient rehab at 1410 Electronically Signed by Aruna Fortune MD on at 1455 RPT #:[id number] END OF REPORT 2022-01-05 10:06:00-00:00 [facility] Hospitalist Progress Note REPORT#:[id number] REPORT STATUS: Signed DATE:01/05/22 TIME: 1006 PATIENT: SAÚL GILES UNIT #: [id number] ROOM/BED: 3363-1 : 43 AGE: 76 SEX: F ATTEND: Leah More MD ADM AUTHOR: Kat Carreon APRN * ALL edits or amendments must be made on the [employer]/computer document * Subjective Chief complaint: Weak, sleepy today. Didnt sleep well because com plaining of bipap. acute respiratory failure --post CABG rehab placement -- pending bed -- may be tursday HPI: 76 years old female with PMH of macular degeneration, obesity, obstructive sleep apnea (CPAP at home), former smoker, hypertensio n, hyperlipidemia, diabetes, Crohn's disease, chronic atr ial fibrillation status post 3 ablations in the past (on Xarelto), pacemaker plac emmirlande is admitted to the hospital post cardiac cath . she need CABG . she had sob for years . sob go t worse . she was admitted to the hospital in [place] . she had cath 3 we eks ago . she was reffered to here for stents placement . she had cath yesterd ay . it show multiple vessels CAD . she is recommend CABG . she still feel sob . no cp no nausea no vomiting no fever no abdominal pain no dizziness . Review of Systems Constitutional: Reports: generalized weakness. Denies: chills, f ever. Skin: Denies: itching, rash. Respiratory: Reports: DOUGLASS (dyspnea on exertion). Denies: SOB. Cardiovascular: Denies: chest pain, palpitations. GI: Denies: abdominal pain, nausea, vomiting. : Denies: dysuria, frequency. Psych: Reports: insomnia. Denies: anxiety. Objective General VS/I O: Vital Signs: Date Time Temp Pulse Resp B/P B/P Pulse O2 O2 F low FiO2 Mean Ox Delivery Rate 01/05 0754 36.4 75 23 136/78 97.0 94 Nasal cannula 01/05 0406 36.4 71 18 129/76 93.6 91 01/05 0329 72 99 40 01/05 0058 36.4 72 16 135/76 95.9 94 01/04 2145 Nasal 3 cannula 01/05 2120 69 94 40 01/05 2120 92 Nasal 4 cannula 01/05 2052 36.4 74 18 133/73 92.9 93 01/04 1715 36.6 75 14 141/63 0.0 91 Nasal cannula 01/04 1559 98 Nasal 4 cannula 01/04 1129 100 Nasal 4 cannula 24 hour I O ending at 0700: 01/05 0700 01/04 1900 Intake Total 250 450 Output Total 500 1200 Balance -250 -750 Intake, Oral 250 450 Number 2 Bowel Movements Output, Urine 500 1200 Patient 118.2 kg Weight Weight Standing scale Measurement Method PATIENT WEIGHT: Weight (lb): 260 Weight (oz): 9.38 Weight (kg): 118.200 Medications: Active Meds + DC'd Last 24 Hrs Potassium Chloride (POTASSIUM CHLORIDE 20MEQ TAB .ER) 40 MEQ ONCE ONE PO (DC) Potassium Chloride (POTASSIUM CHLORIDE 20MEQ TAB .ER) 40 MEQ ONCE ONE PO (DC) Metoprolol Tartrate (LOPRESSOR) 25 MG Q12HR PO Acetazolamide (DIAMOX) 500 MG Q24H IV Furosemide (LASIX 40 mg/4 mL INJECTION) 40 MG DA EMELIA IV Sterile Water (WATER FOR INJECTION) 5 ML ASDIR P RN IV Potassium Chloride (POTASSIUM CHLORIDE 20MEQ TAB .ER) 40 MEQ DAILY PRN PRN PO Insulin Glargine (Lantus/Semglee) 30 UNIT DAILY SUBQ Insulin Glargine (Lantus/Semglee) 20 UNIT BEDTIM E SUBQ Insulin Human Lispro (HUMALOG) 0 AC HS SUBQ Dextrose/Water (DEXTROSE 10% IN WATER) 125 ML DIR PRN IV (CKD) Dextrose/Water (DEXTROSE 10% IN WATER) 250 ML DIR PRN IV (CKD) Glucagon (GLUCAGON) 1 MG ASDIR PRN IM Amiodarone HCl (CORDARONE) 200 MG BID PO Sterile Water (WATER FOR INJECTION) 5 ML ASDIR P RN IV Sterile Water (WATER FOR INJECTION) 5 ML ASDIR P RN IV Sodium Chloride (SODIUM CHLORIDE) 4 ML RTBID NEB Melatonin (Melatonin) 3 MG BEDTIME PO Sodium Chloride (SODIUM CHLORIDE) 10 ML BID IV Sodium Chloride (SODIUM CHLORIDE) 10 ML ASDIR NE N IV Pantoprazole (PROTONIX) 40 MG DAILY PO Dexmedetomidine/Sodium Chloride (PRECEDEX 1000MC G/NS 250ML) 250 ML ASDIR IV Bisacodyl (DULCOLAX) 10 MG DAILY PRN PRN RECTAL Lactulose (LACTULOSE) 20 GM DAILY PRN PRN PO Magnesium Hydroxide (MILK OF MAGNESIA) 30 ML PETER LY PRN PRN PO Aspirin (ASPIRIN) 81 MG DAILY PO Clopidogrel Bisulfate (Plavix) 75 MG DAILY PO Cyanocobalamin (Vitamin B-12 500 mcg tab) 500 MC G DAILY PO Ferrous Sulfate (FERROUS SULFATE) 325 MG DAILY P O Metolazone (metOLazone) 5 MG DAILY PO Polyethylene Glycol (MIRALAX) 17 GM DAILY PO Atorvastatin Calcium (LIPITOR) 40 MG 2100 PO Docusate Sodium (DOCUSATE SODIUM) 100 MG BID PO Senna (SENOKOT) 17.6 MG BEDTIME PO Acetaminophen (TYLENOL) 650 MG Q4H PRN PRN PO Acetylcysteine (MUCOMYST FOR RT) 200 MG RTQ6H NE B Albuterol/Ipratropium (DUONEB) 3 ML RTQ6H NEB Bisacodyl (DULCOLAX) 10 MG ONCE PRN RECTAL Dopamine HCl/Dextrose (DOPamine 400MG/D5W 250ML) 250 ML ASDIR IV Milrinone Lactate/Dextrose (MILRINONE 20MG/D5W 1 00ML) 100 ML ASDIR IV ( CKD) Vasopressin (VASOSTRICT 20 Unit/NS 100ML) 100 ML ASDIR IV (CKD) Acetaminophen (TYLENOL) 650 MG Q4H PRN PRN RECTA L Calcium Chloride (CALCIUM CHLORIDE) 1 GM ASDIR P RN IV Magnesium Sulfate (MAGNESIUM SULFATE 4GM/SWFI 10 0ML) 100 ML ASDIR PRN IV Magnesium Sulfate (MAGNESIUM SULFATE 2GM/SWFI 50 ML) 50 ML ASDIR PRN IV Magnesium Sulfate/Dextrose (MAGNESIUM SULFATE 1G M/D5W 100ML) 100 ML ASDIR PRN IV Nitroglycerin/Dextrose (NITROGLYCERIN 50,000MCG/ D5W 250ML) 250 ML ASDIR IV Norepinephrine Bitartrate (NOREPINEPHRINE 8 MG/N S 250 ML) 250 ML TITRATE IV Potassium Chloride (KCL 20MEQ/SWFI 100ML) 100 ML ASDIR PRN IV Sodium Bicarbonate (SODIUM BICARBONATE) 50 MEQ A SDIR PRN IV Ondansetron HCl (ZOFRAN) 4 MG Q6H PRN PRN IV Physical Exam General appearance: alert, awake, oriented, no a cute distress Head/Eyes: atraumatic, normal conjunctiva/sclera , normal eyelids/periorb., normocephalic Neck: full range of motion, non-tender, no JVD Cardiovascular: normal heart sounds, regular rat e rhythm Respiratory: decreased breath sounds, clear to a uscultation Abdomen: non-tender, normal bowel sounds, soft, no distention Extremities: edema, moves all, no calf tendernes s Musculoskeletal: decreased ROM 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, 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 Skin: dry, intact Psychiatry: normal affect, normal mood Results Findings/Data: Laboratory Tests 01/05 01/04 01/04 01/04 0245 2003 1534 1015 Chemistry Sodium (134 - 147 mEq/L) 145 Potassium (3.4 - 5.0 mEq/L) 3.3 L Chloride (100 - 108 mEq/L) 102 Carbon Dioxide (21 - 33 mEq/l) 36 H Anion Gap (0 - 20) 10 BUN (7 - 18 mg/dL) 26 H Creatinine (0.6 - 1.3 mg/dL) 1.0 Glomerular Filtr Rate (70 - 80) 53.6 L Glucose (70 - 110 mg/dL) 94 POC Glucose (70 - 110 MG/DL) 108 259 H 141 H Calcium (8.0 - 10.5 mg/dL) 9.4 Magnesium (1.80 - 2.40 mg/dL) 1.91 Laboratory Tests 01/05 0330 Hematology WBC (4.5 - 11.0 x10 3/uL) 7.0 RBC (3.54 - 5.02 x10 6/uL) 2.41 L Hgb (11.0 - 15.0 g/dL) 8.3 L Hct (33.0 - 45.0 %) 26.4 L MCV (81.0 - 99.0 fL) 109.5 H MCH (27.0 - 33.0 pg) 34.4 H MCHC (33.0 - 37.0 g/dL) 31.4 L RDW (11.5 - 14.5 %) 19.3 H Plt Count (150 - 400 x10 3/uL) 230 MPV (7.0 - 9.0 fL) 11.2 H Neut % (Auto) (56.0 - 77.0 %) 79.9 H Lymph % (Auto) (14.0 - 32.0 %) 6.3 L Barron % (Auto) (4.8 - 9.0 %) 10.4 H Eos % (Auto) (0.3 - 3.7 %) 1.6 Baso % (Auto) (0.0 - 2.0 %) 0.4 Neut # (Auto) (2.0 - 7.6 x10 3/uL) 5.62 Lymph # (Auto) (1.0 - 3.8 x10 3/uL) 0.44 L Barron # (Auto) (0.1 - 0.8 x10 3/uL) 0.73 Eos # (Auto) (0.0 - 0.2 x10 3/uL) 0.11 Baso # (Auto) (0.0 - 0.2 x10 3/uL) 0.03 Abs Immat Gran (auto) (0.00 - 0.03 x10 3/uL) 0. 10 H Add Manual Diff NO Immature Gran % (0.0 - 2.0 %) 1.4 Nucleated RBC % (0 - 0 %) 0.7 H Nucleated RBCs # (Man) (0.0 - 0.1 x10 3/uL) 0. 05 Diagnosis, Assessment Plan Consultants: cardiology, cardiovascular surgery, critical/hired help Plan discussed with: patient, family, nurse Free Text DxA P Notes Free text DxA P notes: 76 years old female with PMH of macular degeneration, obesity, obstructive sleep apnea (CPAP at home), former smoker, hypertensio n, hyperlipidemia, diabetes, Crohn's disease, chronic atr ial fibrillation status post 3 ablations in the past (on Xarelto), pacemaker placement CAD -- multiple vesssels HTN DM HLD Crohn's disease chronic atrial fibrillation status post 3 ablati ons macular degeneration obesity obstructive sleep apnea acute respiratory failure --post surgery severe mitral valve regurgitation constrictive pericarditis CAD -- cardiology consult CV surgeon consult CABG -- AM ASA/lipitor afib -- rate control -- hold xarelto for surgery HTN-- continue home med DM-- on lantus -- sliding scale HLD-- on lipitor RONA--cpap as need DVTP -- heparin 12/18- feel sob -- CABG -- afternoon 12/19--post MVR (31 Magna valve), CABG x 1 (ROBERTS- LAD), ILAA and pericardectomy -- she remain intubated on the vent -- chest tube are in place -on levophed and epinephrine drip -- monitor in CCU 12/20- she was extubated --on bipap now -- NPO --off Levophed/epinephrine, continue vasopressi n, inotropes with milrinone, -- chest tube remain in place -- she is stable post surgery 12/21-- she is on high flow O2 -- edema --lasix --chest tube in place --- she is hemodynamic stable -- continue monitor in CCU 12/22- she remain on high O2 CXR show worsening pulmonary venous vascular co ngestion. --lasix iv tid -- chest tube are out -- off drips -- NPO -- start TPN -- continue monitor in CCU 12/23- she remain on high flow O2 --less edema -- on TPN -- she is hemodynamic stable -- continue monitor in CVICU 12/24- she get better -- she is out bed and sit on the chair -- start ambulate with PT -- continue current management 12/25- she is doing well with PT remain on o2 continue iv lasix / add diamox continue supportive care continue monitor in CVICU 12/26- she is on bipap -- she remain sob and edema -- may start lasix drip as nurse -- continue supportive care 12/27 On lasix and insulin drips. Back on lantus dose BID, trend glucose. Continue PT/OT. 12/28 Increase lantus BID. 12/29-- she remain on bipap -- sob and edema --lasiv and diamox iv bid -- FS -- better control -- continue monitor in CVICU 12/30- she improve --less sob and edema -- she tolerance diet -- continue lasix -- continue PT/OT 12/31-- less sob and edema - -- ABG -- review -- improve -- continue lasix -- CM --LTAC evaluation 01/01- she improve now --she is on O2 -- NC 2 --lasix 40 mg iv qd -- continue PT/OT -- rehab placement as rehab 01/03 -- she feel tire . less sob -- no bed in rehab now -- continue monitor in the hospital -- rehab placement -- bed may be avalaible nest tursday as CM -- continue PT/OT -- replace K 01/04-- she is weak . she still feel sob -- continue PT/OT -- rehab --pending bed 01/05 Potassium low, replace, labs AM. Continue PT/OT and await placement. Electronically Signed by Kat Carreon APRN on at 1009 Electronically Signed by Jeffry More MD on at 1340 RPT #:[id number] END OF REPORT 2022-01-05 07:48:00-00:00 [facility] Rehab Progress Note REPORT#:[id number] REPORT STATUS: Signed DATE:01/05/22 TIME: 0748 PATIENT: SAÚL GILES UNIT #: [id number] ROOM/BED: [place] [address] : 43 AGE: 76 SEX: F ATTEND: Leah More MD ADM AUTHOR: Herberth Pantoja * ALL edits or amendments must be made on the [employer] document * Subjective Chief complaint: rehab follow-up NAD Doing fair Significant generalized weakness, fatigue No GOLD/N/V/D 14 systems reviewed and negative except that men tioned above. Objective General VS: Vital Signs: Date Time Temp Pulse Resp B/P B/P Pulse O2 O2 F low FiO2 Mean Ox Delivery Rate 01/05 0406 97.5 71 18 129/76 93.6 91 01/05 0329 72 99 40 01/05 0058 97.5 72 16 135/76 95.9 94 01/04 2145 Nasal 3 cannula 01/05 2120 69 94 40 01/05 2120 92 Nasal 4 cannula 01/05 2052 97.5 74 18 133/73 92.9 93 01/04 1715 97.9 75 14 141/63 0.0 91 Nasal cannula 01/04 1559 98 Nasal 4 cannula 01/04 1129 100 Nasal 4 cannula 01/04 0905 94 Nasal 4 cannula 01/04 0856 97.9 70 14 142/64 0.0 92 Nasal cannula 01/04 0845 Nasal 2 cannula PATIENT WEIGHT: Weight (lb): 260 Weight (oz): 9.38 Weight (kg): 118.200 Medications: Active Meds + DC'd Last 24 Hrs Potassium Chloride (POTASSIUM CHLORIDE 20MEQ TAB .ER) 40 MEQ ONCE ONE PO (DC) Potassium Chloride (POTASSIUM CHLORIDE 20MEQ TAB .ER) 40 MEQ ONCE ONE PO (DC) Metoprolol Tartrate (LOPRESSOR) 25 MG Q12HR PO Acetazolamide (DIAMOX) 500 MG Q24H IV Furosemide (LASIX 40 mg/4 mL INJECTION) 40 MG DA EMELIA IV Sterile Water (WATER FOR INJECTION) 5 ML ASDIR P RN IV Potassium Chloride (POTASSIUM CHLORIDE 20MEQ TAB .ER) 40 MEQ DAILY PRN PRN PO Insulin Glargine (Lantus/Semglee) 30 UNIT DAILY SUBQ Insulin Glargine (Lantus/Semglee) 20 UNIT BEDTIM E SUBQ Insulin Human Lispro (HUMALOG) 0 AC HS SUBQ Dextrose/Water (DEXTROSE 10% IN WATER) 125 ML DIR PRN IV (CKD) Dextrose/Water (DEXTROSE 10% IN WATER) 250 ML DIR PRN IV (CKD) Glucagon (GLUCAGON) 1 MG ASDIR PRN IM Amiodarone HCl (CORDARONE) 200 MG BID PO Sterile Water (WATER FOR INJECTION) 5 ML ASDIR P RN IV Sterile Water (WATER FOR INJECTION) 5 ML ASDIR P RN IV Sodium Chloride (SODIUM CHLORIDE) 4 ML RTBID NEB Melatonin (Melatonin) 3 MG BEDTIME PO Sodium Chloride (SODIUM CHLORIDE) 10 ML BID IV Sodium Chloride (SODIUM CHLORIDE) 10 ML ASDIR NE N IV Pantoprazole (PROTONIX) 40 MG DAILY PO Dexmedetomidine/Sodium Chloride (PRECEDEX 1000MC G/NS 250ML) 250 ML ASDIR IV Bisacodyl (DULCOLAX) 10 MG DAILY PRN PRN RECTAL Lactulose (LACTULOSE) 20 GM DAILY PRN PRN PO Magnesium Hydroxide (MILK OF MAGNESIA) 30 ML PETER LY PRN PRN PO Aspirin (ASPIRIN) 81 MG DAILY PO Clopidogrel Bisulfate (Plavix) 75 MG DAILY PO Cyanocobalamin (Vitamin B-12 500 mcg tab) 500 MC G DAILY PO Ferrous Sulfate (FERROUS SULFATE) 325 MG DAILY P O Metolazone (metOLazone) 5 MG DAILY PO Polyethylene Glycol (MIRALAX) 17 GM DAILY PO Atorvastatin Calcium (LIPITOR) 40 MG 2100 PO Docusate Sodium (DOCUSATE SODIUM) 100 MG BID PO Senna (SENOKOT) 17.6 MG BEDTIME PO Acetaminophen (TYLENOL) 650 MG Q4H PRN PRN PO Acetylcysteine (MUCOMYST FOR RT) 200 MG RTQ6H NE B Albuterol/Ipratropium (DUONEB) 3 ML RTQ6H NEB Bisacodyl (DULCOLAX) 10 MG ONCE PRN RECTAL Dopamine HCl/Dextrose (DOPamine 400MG/D5W 250ML) 250 ML ASDIR IV Milrinone Lactate/Dextrose (MILRINONE 20MG/D5W 1 00ML) 100 ML ASDIR IV ( CKD) Vasopressin (VASOSTRICT 20 Unit/NS 100ML) 100 ML ASDIR IV (CKD) Acetaminophen (TYLENOL) 650 MG Q4H PRN PRN RECTA L Calcium Chloride (CALCIUM CHLORIDE) 1 GM ASDIR P RN IV Magnesium Sulfate (MAGNESIUM SULFATE 4GM/SWFI 10 0ML) 100 ML ASDIR PRN IV Magnesium Sulfate (MAGNESIUM SULFATE 2GM/SWFI 50 ML) 50 ML ASDIR PRN IV Magnesium Sulfate/Dextrose (MAGNESIUM SULFATE 1G M/D5W 100ML) 100 ML ASDIR PRN IV Nitroglycerin/Dextrose (NITROGLYCERIN 50,000MCG/ D5W 250ML) 250 ML ASDIR IV Norepinephrine Bitartrate (NOREPINEPHRINE 8 MG/N S 250 ML) 250 ML TITRATE IV Potassium Chloride (KCL 20MEQ/SWFI 100ML) 100 ML ASDIR PRN IV Sodium Bicarbonate (SODIUM BICARBONATE) 50 MEQ A SDIR PRN IV Ondansetron HCl (ZOFRAN) 4 MG Q6H PRN PRN IV Functional Progress Functional progress: Weightbearing: No Restriction Ambulation Distance: 40FT X5 Progression: Forward Assistance Level: Supervision or Set-up Gait Deviations: SHORT STEPS Advanced Progression: No Effects of Treatment: [place] of care decreased Function Improved Gait quality improved Cardio tolerance improved Post [place] Precautions: In Chair Call Light in Reach Nursing Notified O2 on Pulse OX in Place Family/Sitter at Bedside Review Plan of Care: Yes PT charges: Gait Training 23097 Gait Cmt: PATIENT IN BEDSIDE CHAIR UPON ARRIVAL AND AGREEABLE TO THERAPY. PATIENT MIN A FOR SIT TO STAND AND AMBULAED 40' X 5 WITH RW AND WC TO FOLLOW. PATIENT NOTED WITH SOB DURING GAIT AND O2 SATS AT 80% ON 4 LPM. PATIENT REQUIRED EXTRA TIME TO RECOVER. EDUCATED PATIENT ON PURSED LIP BREATHING. PATIENT PLACED BACK IN BEDSIDE CHAIR WITH CALL ROSA IN REACH AND ALL NEEDS MET. RN NOTIFIED AND FAMILY AT BEDSIDE. If this is the patient's last treatment, this e ntry Start Time: 939 Stop Time: 1020 Treatment [place] e: ( minutes) 0:40 Completed by: Chaz Delgado Conference/Supervising PT: Yes Supervising Therapist: Jeet Reyes BED MOBILITY: No TRANSFERS: Yes Sit to/from stand: Minimal Assistance CARDIO-RESPIRATORY IMPAIRMENT Items determined to be OUTSIDE the Functional L imits are as follows: Patient on Telemetry?: Yes Rhythm: Normal Sinus Rhythm Physical Exam General appearance: alert, awake Psych: alert, oriented x 3 HEENT: anicteric, mucosal membranes moist Neck: supple, no JVD Cardiovascular: regular rate rhythm, no murmur Respiratory: diminished breath sounds (bases ), on oxygen (Hi flow O2 ) Abdomen: bowel sounds present, non-distended, so ft, non-tender Skin: dry, intact, no rash, incisions D/I Musculoskeletal - general: Musculoskeletal - general: swelling (BLE +3), m oving all ext AG 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, 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, normal speech, n o motor deficits, no sensory deficits Results Findings/Data: Laboratory Tests: 01/055 2003 1534 1015 Chemistry Sodium (134 - 147 mEq/L) 145 Potassium (3.4 - 5.0 mEq/L) 3.3 L Chloride (100 - 108 mEq/L) 102 Carbon Dioxide (21 - 33 mEq/l) 36 H Anion Gap (0 - 20) 10 BUN (7 - 18 mg/dL) 26 H Creatinine (0.6 - 1.3 mg/dL) 1.0 Glomerular Filtr Rate (70 - 80) 53.6 L Glucose (70 - 110 mg/dL) 94 POC Glucose (70 - 110 MG/DL) 108 259 H 141 H Calcium (8.0 - 10.5 mg/dL) 9.4 Magnesium (1.80 - 2.40 mg/dL) 1.91 Hematology WBC (4.5 - 11.0 x10 3/uL) 7.0 RBC (3.54 - 5.02 x10 6/uL) 2.41 L Hgb (11.0 - 15.0 g/dL) 8.3 L Hct (33.0 - 45.0 %) 26.4 L MCV (81.0 - 99.0 fL) 109.5 H MCH (27.0 - 33.0 pg) 34.4 H MCHC (33.0 - 37.0 g/dL) 31.4 L RDW (11.5 - 14.5 %) 19.3 H Plt Count (150 - 400 x10 3/uL) 230 MPV (7.0 - 9.0 fL) 11.2 H Neut % (Auto) (56.0 - 77.0 %) 79.9 H Lymph % (Auto) (14.0 - 32.0 %) 6.3 L Barron % (Auto) (4.8 - 9.0 %) 10.4 H Eos % (Auto) (0.3 - 3.7 %) 1.6 Baso % (Auto) (0.0 - 2.0 %) 0.4 Neut # (Auto) (2.0 - 7.6 x10 3/uL) 5.62 Lymph # (Auto) (1.0 - 3.8 x10 3/uL) 0.44 L Barron # (Auto) (0.1 - 0.8 x10 3/uL) 0.73 Eos # (Auto) (0.0 - 0.2 x10 3/uL) 0.11 Baso # (Auto) (0.0 - 0.2 x10 3/uL) 0.03 Abs Immat Gran (auto) (0.00 - 0.03 0.10 H x10 3/uL) Add Manual Diff NO Immature Gran % (0.0 - 2.0 %) 1.4 Nucleated RBC % (0 - 0 %) 0.7 H Nucleated RBCs # (Man) (0.0 - 0.1 0.05 x10 3/uL) Diagnosis, Assessment Plan Free Text A P: 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 fib Hypoxic respiratory failure Hypokalemia Plan: Continue PT/OT Out of bed to chair Work on strength, bed mobility, transfers, gait Increase endurance Fall precautions Monitor p.o. intake and nutrition Strict decubitus precautions Monitor anemia Advance therapies as tolerated Tolerating regular diet Continue diuresis- monitor strict I Os Lasix IV 40 daily Weigh patient daily Potassium replenished Advance therapies as tolerated IRF consulted. Possible bed Wednesday Total time was 33 minutes > 50% with patient per forming physical examination, discussing O2 requirements, plan of care, goals, therapies, progress, medications, labs, IRF. All questions answered Rehab attestation: . Electronically Signed by Herberth Pantoja on at [address] [facility] #:[id number] END OF REPORT 2022-01-04 17:46:00-00:00 [facility] Cardiothoracic Surgery Prog REPORT#:[id number] REPORT STATUS: Signed DATE:01/04/22 TIME: 1746 PATIENT: SAÚL GILES UNIT #: [id number] ROOM/BED: [place] [address] : 43 AGE: 76 SEX: F ATTEND: Leah More MD ADM AUTHOR: René Romero MD * ALL edits or amendments must be made on the [employer]/computer document * Subjective HPI: No new issues overnight On 3 L supplemental oxygen Good pain control Review of Systems Constitutional: Denies: fever, malaise. Allergy/Immun: Denies: allergic reaction. ENT: Denies: sore throat. Respiratory: Denies: SOB. GI: Denies: abdominal pain. Heme: Denies: bleeding. Neuro: Denies: focal weakness, headache. All systems rev neg: except as marked Objective General VS/I O Last Documented: Result Date Time Pulse Ox 91 01/04 1715 B/P 141/63 01/04 1715 B/P Mean 0.0 01/04 1715 O2 Delivery Nasal cannula 01/04 1715 Temp 36.6 01/04 1715 Pulse 75 01/04 1715 Resp 14 01/04 1715 O2 Flow Rate 4 01/04 1559 FiO2 40 01/03 2324 24 hour I O ending at 0700: 01/04 0700 01/03 1900 Intake Total 400 Output Total 200 450 Balance -200 -50 Intake, Oral 400 Output, Urine 200 450 Patient 119.4 kg Weight Weight Standing scale Measurement Method PATIENT WEIGHT: Weight (lb): 263 Weight (oz): 3.71 Weight (kg): 119.400 Physical Exam General appearance: alert, awake, oriented Wound/incision: Location: sternal Site condition: edges approximated, incision in tact, no drainage HEENT: anicteric Neck: supple/no meningismus Cardiovascular: normal heart sounds, regular rat e rhythm Respiratory: aerating well, symmetric expansion, no distress Abdomen: soft, non-tender Extremities: moves all 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, 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, normal speech Skin: dry, intact, normal temperature Psychiatry: normal affect, normal mood Diagnosis, Assessment Plan Free Text A P: Ambulate Encourage incentive spirometry Diuresis per nephrology Discharge planning at 1748 RPT #:[id number] END OF REPORT 2022-01-04 12:25:00-00:00 [facility] ([facility]) Nephrology Progress Note REPORT#:[id number] REPORT STATUS: Signed DATE:01/04/22 TIME: 1225 PATIENT: SAÚL GILES UNIT #: [id number] ROOM/BED: [place] [address] : 43 AGE: 76 SEX: F ATTEND: Leah More MD ADM AUTHOR: Suki Fuchs MD * ALL edits or amendments must be made on the [employer]/computer document * Subjective Chief complaint: chest pain HPI: This is a 76-year-old female who has past medica l history of hypertension, diabetes, coronary artery disease, atrial fibril lation who presented with worsening shortness of breath and on further wor k-up was 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 She was with normal kidney function prior to surgery and afte r her surgery she began to develop oliguria. Her procedure was done without any complications but after her surgery she did require pressor support for hypotension and she was intubated for respiratory acidosis and hypoxia a nd she was treated with vancomycin for infection treatment. When she was seen this morning she continued to have hypotension and her heart rate was paced by her permanent pacemaker and her urine outp ut was 20 to 30/h. Her family at bedside denied any history of kidney disease, kidney stone, chronic NSAID use or any urinary complaints. They also endorse that her b lood pressure and diabetes were mostly controlled. 01/04 Looking comfortable, tolerating orally.Walking w ith no difficulty. Objective General VS/I O: Vital Signs: Date Time Temp Pulse Resp B/P B/P Pulse O2 O2 F low FiO2 Mean Ox Delivery Rate 01/04 1715 36.6 75 14 141/63 0.0 91 Nasal cannula 01/04 1559 98 Nasal 4 cannula 01/04 1129 100 Nasal 4 cannula 01/04 0905 94 Nasal 4 cannula 01/04 0856 36.6 70 14 142/64 0.0 92 Nasal cannula 01/04 0845 Nasal 2 cannula 01/04 0627 36.3 70 18 141/75 96.7 93 01/04 0217 Nasal 3 cannula 01/03 2324 75 99 40 01/039 36.5 75 18 151/57 88.0 99 01/03 2010 36.7 73 18 151/76 101.1 99 24 hour I O ending at 0700: 01/04 0700 01/03 1900 Intake Total 400 Output Total 200 450 Balance -200 -50 Intake, Oral 400 Output, Urine 200 450 Patient 119.4 kg Weight Weight Standing scale Measurement Method PATIENT WEIGHT: Weight (lb): 263 Weight (oz): 3.71 Weight (kg): 119.400 Physical Exam General appearance: alert, awake, oriented Head/eyes: atraumatic, normocephalic ENT: moist mucous membranes, normal nose Neck: no JVD, no lymphadenopathy Cardiovascular: normal heart sounds, regular rat e and rhythm Respiratory: aerating well, clear to auscultatio n Abdomen: soft, no pulsatile mass Genitourinary: urinary catheter Extremities: no gangrene, no swelling Treatment Prophylaxis Treatment Prophylaxis Drain(s)/tube(s): Drain(s)/tube(s): chest (x3) Diagnosis, Assessment Plan Free Text A P: This is a 76-year-old female known to have hyper tension, diabetes, atrial fibrillation, s/p permanent pacemaker and histor y of ablation presenting with shortness of breath and found to have multivesse l coronary artery disease therefore she had CABG on December 19 after which she has developed oliguria. Nephrology is following for: 1. Acute kidney injury: Most likely it i s prerenal (cardiorenal), she has been hypotensive postoperatively with require ment for pressor support and inotropic support. Plan is to increase inotropic support or pressor support to bring mean arterial pressure above 65 and give albumin with Lasix to see if it helps him diurese. If he does not respond to higher dose L asix with albumin then I will consider starting him on CRRT to prevent hyper v olemia. 2. Hypervolemia: Plan is to give Lasix a nd if he does not respond to start him on CRRT for extra fluid removal. 3. His electrolytes were all reviewed to be in normal range plan was to monitor and replace as needed. 4. He was receiving vancomycin so plan w as to monitor vancomycin trough levels to prevent ATN. 5/ Metabolic alkalosis secondary to diur etics : Plan to give acetazoleamide if worsening. 12/27 1. Acute kidney injury: Resolved, she is respond ing to lasix. 2. Hypervolemia: Plan to continue lasix as tolerated.Today she was on low dose twice daily lasix. 3. Hypokalemia/hypomagnesemia:secondary to diure tics, plan was to monitor and replace as needed. 4. She was receiving vancomy sanjana so plan was to monitor vancomycin trough levels to prevent ATN. 5/ Metabolic alkalosis secon lilli to diuretics : Plan to give acetazoleamide and monitor closely. 12/28 1. Acute kidney injury: Resolved, she is respond ing to lasix. 2. Hypervolemia: Plan to continue lasix as tolerated.Today she was on low dose twice daily lasix. 3. Hypokalemia/hypomagnesemia:secondary to diure tics, plan was to monitor and replace as needed. 4. She was receiving vancomy sanjana so plan was to monitor vancomycin trough levels to prevent ATN. 5/ Metabolic alkalosis secon lilli to diuretics : Plan to give acetazoleamide and monitor closely. 12/29 1. Acute kidney injury: Resolved, she is respond ing to lasix. 2. Hypervolemia: Plan to continue lasix as tolerated.Today she was on low dose twice daily lasix. 3. Hypokalemia/hypomagnesemia:secondary to diure tics, plan was to monitor and replace as needed. 4. She was receiving vancomy sanjana so plan was to monitor vancomycin trough levels to prevent ATN. 5/ Metabolic alkalosis secon lilli to diuretics : Plan to give acetazoleamide and monitor closely. 12/30 1. Acute kidney injury: Resolved, she is respond ing to lasix. 2. Hypervolemia: Plan to continue lasix as tolerated.Today she was on low dose twice daily lasix. 3. Hypokalemia/hypomagnesemia:secondary to diure tics, plan was to monitor and replace as needed. 4. Metabolic alkalosis secondary to diuretics : Plan to continue acetazoleamide and monitor closely. 12/31 1. Acute kidney injury: Resolved, she is respond ing to lasix. 2. Hypervolemia: Plan to continue lasix as tolerated.Today she was on low dose twice daily lasix. 3. Hypokalemia/hypomagnesemia:secondary to diure tics, plan was to monitor and replace as needed. 4. Metabolic alkalosis secondary to diuretics :I mproved so acetazoleamide reduced. 01/02 1. Acute kidney injury: Resolved, she is respond ing to lasix. 2. Hypervolemia: Plan to continue lasix as tolerated.Today she was on low dose daily lasix. 3. Hypokalemia/hypomagnesemia:secondary to diure tics, plan was to monitor and replace as needed. 4. Metabolic alkalosis secondary to diuretics : acetazoleamide [id number] 01/03 1. Acute kidney injury: Resolved, she is respond ing to lasix. 2. Hypervolemia: Plan to continue lasix as tolerated.Today she was on low dose daily lasix. 3. Hypokalemia/hypomagnesemia:secondary to diure tics, plan was to monitor and replace as needed. 4. Metabolic alkalosis secondary to diuretics : acetazoleamide continued. Plan was to continue same as patient stable from volume and electrolyte standpoint. 01/04 1. Acute kidney injury: Resolved, she is respond ing to lasix. 2. Hypervolemia: Plan to continue lasix as tolerated.Today she was on low dose daily lasix. 3. Hypokalemia/hypomagnesemia:secondary to diure tics, plan was to monitor and replace as needed. 4. Metabolic alkalosis secondary to diuretics : acetazoleamide continued. Plan was to continue same as patient stable from volume and electrolyte standpoint. Consultants: cardiology, cardiovascular surgery, critical/hired help Electronically Signed by Suki Fuchs MD on at 2009 RPT #:[id number] END OF REPORT 2022-01-04 12:14:00-00:00 [facility] Hospitalist Progress Note REPORT#:[id number] REPORT STATUS: Signed DATE:01/04/22 TIME: 1214 PATIENT: SAÚL GILES UNIT #: [id number] ROOM/BED: [facility] : 43 AGE: 76 SEX: F ATTEND: Leah More MD ADM AUTHOR: Meryl Rosa MD * ALL edits or amendments must be made on the el [employer]/computer document * Subjective Chief complaint: she is weak . less sob acute respiratory failure --post CABG rehab placement -- pending bed -- may be tursday HPI: 76 years old female with PMH of macular degeneration, obesity, obstructive sleep apnea (CPAP at home), former smoker, hypertensio n, hyperlipidemia, diabetes, Crohn's disease, chronic atr ial fibrillation status post 3 ablations in the past (on Xarelto), pacemaker plac ement is admitted to the hospital post cardiac cath . she need CABG . she had sob for years . sob go t worse . she was admitted to the hospital in [place] . she had cath 3 we eks ago . she was reffered to here for stents placement . she had cath yesterd ay . it show multiple vessels CAD . she is recommend CABG . she still feel sob . no cp no nausea no vomiting no fever no abdominal pain no dizziness . Review of Systems Constitutional: Reports: generalized weakness. Denies: fever, le thargy. Respiratory: Reports: SOB. Denies: wheezing. Cardiovascular: Reports: DOUGLASS (dyspnea on exertion), edema. Denie s: chest pain, orthopnea, palpitations. GI: Denies: abdominal pain, nausea, vomiting. Neuro: Denies: dizziness. Objective General VS/I O: Vital Signs: Date Time Temp Pulse Resp B/P B/P Pulse O2 O2 Flow FiO2 Mean Ox Delivery Rate 01/04 0856 36.6 70 14 142/64 0.0 92 Nasal cannula 01/04 845 Nasal 2 cannula 01/04 627 36.3 70 18 141/75 96.7 93 01/04 217 Nasal 3 cannula 01/04 2324 75 99 40 01/03 2239 36.5 75 18 151/57 88.0 99 01/03 2010 36.7 73 18 151/76 101.1 99 01/04 1956 72 100 40 10/22 1956 100 BiPAP 40 01/03 1721 72 27 92 01/03 1700 72 22 99 01/03 1639 36.3 70 16 138/73 94.7 97 Nasal cannula 01/03 1600 69 21 100 01/03 1528 88 Nasal 3 cannula 01/03 1500 75 31 88 01/03 1331 75 30 88 01/03 1300 75 27 90 01/03 1217 36.4 74 16 134/76 95.4 86 Nasal cannula 24 hour I O ending at 0700: 01/04 0700 01/03 1900 Intake Total 400 Output Total 200 450 Balance -200 -50 Intake, Oral 400 Output, Urine 200 450 Patient 119.4 kg Weight Weight Standing scale Measurement Method PATIENT WEIGHT: Weight (lb): 263 Weight (oz): 3.71 Weight (kg): 119.400 Medications: Active Meds + DC'd Last 24 Hrs Potassium Chloride (POTASSIUM CHLORIDE 20MEQ TAB .ER) 40 MEQ ONCE ONE PO Metoprolol Tartrate (LOPRESSOR) 25 MG Q12HR PO Acetazolamide (DIAMOX) 500 MG Q24H IV Furosemide (LASIX 40 mg/4 mL INJECTION) 40 MG DA EMELIA IV Sterile Water (WATER FOR INJECTION) 5 ML ASDIR P RN IV Potassium Chloride (POTASSIUM CHLORIDE 20MEQ TAB .ER) 40 MEQ DAILY PRN PRN PO Insulin Glargine (Lantus/Semglee) 30 UNIT DAILY SUBQ Insulin Glargine (Lantus/Semglee) 20 UNIT BEDTIM E SUBQ Insulin Human Lispro (HUMALOG) 0 AC HS SUBQ Dextrose/Water (DEXTROSE 10% IN WATER) 125 ML DIR PRN IV (CKD) Dextrose/Water (DEXTROSE 10% IN WATER) 250 ML DIR PRN IV (CKD) Glucagon (GLUCAGON) 1 MG ASDIR PRN IM Amiodarone HCl (CORDARONE) 200 MG BID PO Sterile Water (WATER FOR INJECTION) 5 ML ASDIR P RN IV Sterile Water (WATER FOR INJECTION) 5 ML ASDIR P RN IV Sodium Chloride (SODIUM CHLORIDE) 4 ML RTBID NEB Melatonin (Melatonin) 3 MG BEDTIME PO Sodium Chloride (SODIUM CHLORIDE) 10 ML BID IV Sodium Chloride (SODIUM CHLORIDE) 10 ML ASDIR NE N IV Pantoprazole (PROTONIX) 40 MG DAILY PO Dexmedetomidine/Sodium Chloride (PRECEDEX 1000MC G/NS 250ML) 250 ML ASDIR IV Bisacodyl (DULCOLAX) 10 MG DAILY PRN PRN RECTAL Lactulose (LACTULOSE) 20 GM DAILY PRN PRN PO Magnesium Hydroxide (MILK OF MAGNESIA) 30 ML PETER LY PRN PRN PO Aspirin (ASPIRIN) 81 MG DAILY PO Clopidogrel Bisulfate (Plavix) 75 MG DAILY PO Cyanocobalamin (Vitamin B-12 500 mcg tab) 500 MC G DAILY PO Ferrous Sulfate (FERROUS SULFATE) 325 MG DAILY P O Metolazone (metOLazone) 5 MG DAILY PO Polyethylene Glycol (MIRALAX) 17 GM DAILY PO Atorvastatin Calcium (LIPITOR) 40 MG 2100 PO Docusate Sodium (DOCUSATE SODIUM) 100 MG BID PO Senna (SENOKOT) 17.6 MG BEDTIME PO Acetaminophen (TYLENOL) 650 MG Q4H PRN PRN PO Acetylcysteine (MUCOMYST FOR RT) 200 MG RTQ6H NE B Albuterol/Ipratropium (DUONEB) 3 ML RTQ6H NEB Bisacodyl (DULCOLAX) 10 MG ONCE PRN RECTAL Dopamine HCl/Dextrose (DOPamine 400MG/D5W 250ML) 250 ML ASDIR IV Milrinone Lactate/Dextrose (MILRINONE 20MG/D5W 1 00ML) 100 ML ASDIR IV ( CKD) Vasopressin (VASOSTRICT 20 Unit/NS 100ML) 100 ML ASDIR IV (CKD) Acetaminophen (TYLENOL) 650 MG Q4H PRN PRN RECTA L Calcium Chloride (CALCIUM CHLORIDE) 1 GM ASDIR P RN IV Magnesium Sulfate (MAGNESIUM SULFATE 4GM/SWFI 10 0ML) 100 ML ASDIR PRN IV Magnesium Sulfate (MAGNESIUM SULFATE 2GM/SWFI 50 ML) 50 ML ASDIR PRN IV Magnesium Sulfate/Dextrose (MAGNESIUM SULFATE 1G M/D5W 100ML) 100 ML ASDIR PRN IV Nitroglycerin/Dextrose (NITROGLYCERIN 50,000MCG/ D5W 250ML) 250 ML ASDIR IV Norepinephrine Bitartrate (NOREPINEPHRINE 8 MG/N S 250 ML) 250 ML TITRATE IV Potassium Chloride (KCL 20MEQ/SWFI 100ML) 100 ML ASDIR PRN IV Sodium Bicarbonate (SODIUM BICARBONATE) 50 MEQ A SDIR PRN IV Ondansetron HCl (ZOFRAN) 4 MG Q6H PRN PRN IV Physical Exam General appearance: alert, awake, oriented Head/Eyes: atraumatic, normal conjunctiva/sclera , normal eyelids/periorb., normocephalic Neck: full range of motion, non-tender, no JVD Cardiovascular: normal heart sounds, regular rat e rhythm Respiratory: decreased breath sounds, clear to a uscultation Abdomen: non-tender, normal bowel sounds, soft, no distention Extremities: edema, moves all, no calf tendernes s 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, 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 Skin: dry, intact Results Findings/Data: Laboratory Tests 01/04 01/04 01/04 01/03 01/03 1015 0748 0330 2010 1637 Chemistry Sodium (134 - 147 mEq/L) 144 Potassium (3.4 - 5.0 mEq/L) 3.5 Chloride (100 - 108 mEq/L) 102 Carbon Dioxide (21 - 33 mEq/l) 36 H Anion Gap (0 - 20) 10 BUN (7 - 18 mg/dL) 26 H Creatinine (0.6 - 1.3 mg/dL) 0.9 Glomerular Filtr Rate (70 - 80) 60.6 L Glucose (70 - 110 mg/dL) 103 POC Glucose (70 - 110 MG/DL) 141 H 87 117 H 180 H Calcium (8.0 - 10.5 mg/dL) 9.8 Magnesium (1.80 - 2.40 mg/dL) 2.02 01/03 1228 Chemistry POC Glucose (70 - 110 MG/DL) 189 H Laboratory Tests 01/04 0330 Hematology WBC (4.5 - 11.0 x10 3/uL) 7.3 RBC (3.54 - 5.02 x10 6/uL) 2.11 L Hgb (11.0 - 15.0 g/dL) 8.1 L Hct (33.0 - 45.0 %) 24.0 L MCV (81.0 - 99.0 fL) 113.7 H MCH (27.0 - 33.0 pg) 38.4 H MCHC (33.0 - 37.0 g/dL) 33.8 RDW (11.5 - 14.5 %) 19.1 H Plt Count (150 - 400 x10 3/uL) 255 MPV (7.0 - 9.0 fL) 10.6 H Neut % (Auto) (56.0 - 77.0 %) 80.2 H Lymph % (Auto) (14.0 - 32.0 %) 6.3 L Barron % (Auto) (4.8 - 9.0 %) 9.7 H Eos % (Auto) (0.3 - 3.7 %) 1.8 Baso % (Auto) (0.0 - 2.0 %) 0.5 Neut # (Auto) (2.0 - 7.6 x10 3/uL) 5.86 Lymph # (Auto) (1.0 - 3.8 x10 3/uL) 0.46 L Barron # (Auto) (0.1 - 0.8 x10 3/uL) 0.71 Eos # (Auto) (0.0 - 0.2 x10 3/uL) 0.13 Baso # (Auto) (0.0 - 0.2 x10 3/uL) 0.04 Abs Immat Gran (auto) (0.00 - 0.03 x10 3/uL) 0. 11 H Add Manual Diff NO Immature Gran % (0.0 - 2.0 %) 1.5 Nucleated RBC % (0 - 0 %) 0.4 H Nucleated RBCs # (Man) (0.0 - 0.1 x10 3/uL) 0.0 3 Radiology data: Recent Impressions: RADIOLOGY - XR CHEST 1 V 01/04 0712 Report Impression - Status: SIGNED Entered: 01/04/202213 IMPRESSION: Mild worsening right basilar opacities. Otherwis e, stable exam. Impression By: AureliaSWBelén - Mark Anthony Willis M.D. Treatment Prophylaxis Treatment Prophylaxis Drain(s)/tube(s): Drain(s)/tube(s): chest (x3) Diagnosis, Assessment Plan Consultants: cardiology, cardiovascular surgery, critical/hired help Free Text DxA P Notes Free text DxA P notes: 76 years old female with PMH of macular degeneration, obesity, obstructive sleep apnea (CPAP at home), former smoker, hypertensio n, hyperlipidemia, diabetes, Crohn's disease, chronic atr ial fibrillation status post 3 ablations in the past (on Xarelto), pacemaker placement CAD -- multiple vesssels HTN DM HLD Crohn's disease chronic atrial fibrillation status post 3 ablati ons macular degeneration obesity obstructive sleep apnea acute respiratory failure --post surgery severe mitral valve regurgitation constrictive pericarditis CAD -- cardiology consult CV surgeon consult CABG -- AM ASA/lipitor afib -- rate control -- hold xarelto for surgery HTN-- continue home med DM-- on lantus -- sliding scale HLD-- on lipitor RONA--cpap as need DVTP -- heparin 12/18- feel sob -- CABG -- afternoon 12/19--post MVR (31 Magna valve), CABG x 1 (ROBERTS- LAD), ILAA and pericardectomy -- she remain intubated on the vent -- chest tube are in place -on levophed and epinephrine drip -- monitor in CCU 12/20- she was extubated --on bipap now -- NPO --off Levophed/epinephrine, continue vasopressi n, inotropes with milrinone, -- chest tube remain in place -- she is stable post surgery 12/21-- she is on high flow O2 -- edema --lasix --chest tube in place --- she is hemodynamic stable -- continue monitor in CCU 12/22- she remain on high O2 CXR show worsening pulmonary venous vascular c ongestion. --lasix iv tid -- chest tube are out -- off drips -- NPO -- start TPN -- continue monitor in CCU 12/23- she remain on high flow O2 --less edema -- on TPN -- she is hemodynamic stable -- continue monitor in CVICU 12/24- she get better -- she is out bed and sit on the chair -- start ambulate with PT -- continue current management 12/25- she is doing well with PT remain on o2 continue iv lasix / add diamox continue supportive care continue monitor in CVICU 12/26- she is on bipap -- she remain sob and edema -- may start lasix drip as nurse -- continue supportive care 12/27 On lasix and insulin drips. Back on lantus dose BID, trend glucose. Continue PT/OT. 12/28 Increase lantus BID. 12/29-- she remain on bipap -- sob and edema --lasiv and diamox iv bid -- FS -- better control -- continue monitor in CVICU 12/30- she improve --less sob and edema -- she tolerance diet -- continue lasix -- continue PT/OT 12/31-- less sob and edema - -- ABG -- review -- improve -- continue lasix -- CM --LTAC evaluation 01/01- she improve now --she is on O2 -- NC 2 --lasix 40 mg iv qd -- continue PT/OT -- rehab placement as rehab 01/03 -- she feel tire . less sob -- no bed in rehab now -- continue monitor in the hospital -- rehab placement -- bed may be avalaible nest tursday as CM -- continue PT/OT -- replace K 01/04-- she is weak . she still feel sob -- continue PT/OT -- rehab --pending bed Electronically Signed by Meryl Rosa MD on 2 at 1355 RPT #:[id number] END OF REPORT 2022-01-04 10:48:00-00:00 [facility] Cardiology Progress Note REPORT#:[id number] REPORT STATUS: Signed DATE:01/04/22 TIME: 1048 PATIENT: SAÚL GILES UNIT #: [id number] ROOM/BED: [place] [address] : 43 AGE: 76 SEX: F ATTEND: Leah More MD ADM AUTHOR: Aruna Fortune MD * ALL edits or amendments must be made on the [employer]/computer document * Subjective Free Text Subj Notes Free Text Subj Notes: Doing okay Objective General VS/I O: 24 hour I O ending at 0700: 01/04 0700 01/03 1900 Intake Total 400 Output Total 200 450 Balance -200 -50 Intake, Oral 400 Output, Urine 200 450 Patient 119.4 kg Weight Weight Standing scale Measurement Method Vital Signs: Date Time Temp Pulse Resp B/P B/P Pulse O2 O2 F low FiO2 Mean Ox Delivery Rate 01/04 0856 97.9 70 14 142/64 0.0 92 Nasal cannula 01/04 0845 Nasal 2 cannula 01/04 627 97.3 70 18 141/75 96.7 93 01/04 217 Nasal 3 cannula 01/03 2324 75 99 40 01/03 2239 97.7 75 18 151/57 88.0 99 01/03 2010 98.1 73 18 151/76 101.1 99 01/04 1956 72 100 40 01/04 1956 100 BiPAP 40 01/03 1721 72 27 92 01/03 1700 72 22 99 01/03 1639 97.3 70 16 138/73 94.7 97 Nasal cannula 01/03 1600 69 21 100 01/03 1528 88 Nasal 3 cannula 01/03 1500 75 31 88 01/03 1331 75 30 88 01/03 1300 75 27 90 01/03 1217 97.5 74 16 134/76 95.4 86 Nasal cannula 01/03 1200 73 40 01/03 1100 71 20 96 PATIENT WEIGHT: Weight (lb): 263 Weight (oz): 3.71 Weight (kg): 119.400 Medications: Active Meds + DC'd Last 24 Hrs Potassium Chloride (POTASSIUM CHLORIDE 20MEQ TAB .ER) 40 MEQ ONCE ONE PO Metoprolol Tartrate (LOPRESSOR) 25 MG Q12HR PO Acetazolamide (DIAMOX) 500 MG Q24H IV Furosemide (LASIX 40 mg/4 mL INJECTION) 40 MG DA EMELIA IV Sterile Water (WATER FOR INJECTION) 5 ML ASDIR P RN IV Potassium Chloride (POTASSIUM CHLORIDE 20MEQ TAB .ER) 40 MEQ DAILY PRN PRN PO Insulin Glargine (Lantus/Semglee) 30 UNIT DAILY SUBQ Insulin Glargine (Lantus/Semglee) 20 UNIT BEDTIM E SUBQ Insulin Human Lispro (HUMALOG) 0 AC HS SUBQ Dextrose/Water (DEXTROSE 10% IN WATER) 125 ML DIR PRN IV (CKD) Dextrose/Water (DEXTROSE 10% IN WATER) 250 ML DIR PRN IV (CKD) Glucagon (GLUCAGON) 1 MG ASDIR PRN IM Amiodarone HCl (CORDARONE) 200 MG BID PO Sterile Water (WATER FOR INJECTION) 5 ML ASDIR P RN IV Sterile Water (WATER FOR INJECTION) 5 ML ASDIR P RN IV Sodium Chloride (SODIUM CHLORIDE) 4 ML RTBID NEB Melatonin (Melatonin) 3 MG BEDTIME PO Sodium Chloride (SODIUM CHLORIDE) 10 ML BID IV Sodium Chloride (SODIUM CHLORIDE) 10 ML ASDIR NE N IV Pantoprazole (PROTONIX) 40 MG DAILY PO Dexmedetomidine/Sodium Chloride (PRECEDEX 1000MC G/NS 250ML) 250 ML ASDIR IV Bisacodyl (DULCOLAX) 10 MG DAILY PRN PRN RECTAL Lactulose (LACTULOSE) 20 GM DAILY PRN PRN PO Magnesium Hydroxide (MILK OF MAGNESIA) 30 ML PETER LY PRN PRN PO Aspirin (ASPIRIN) 81 MG DAILY PO Clopidogrel Bisulfate (Plavix) 75 MG DAILY PO Cyanocobalamin (Vitamin B-12 500 mcg tab) 500 MC G DAILY PO Ferrous Sulfate (FERROUS SULFATE) 325 MG DAILY P O Metolazone (metOLazone) 5 MG DAILY PO Polyethylene Glycol (MIRALAX) 17 GM DAILY PO Atorvastatin Calcium (LIPITOR) 40 MG 2100 PO Docusate Sodium (DOCUSATE SODIUM) 100 MG BID PO Senna (SENOKOT) 17.6 MG BEDTIME PO Acetaminophen (TYLENOL) 650 MG Q4H PRN PRN PO Acetylcysteine (MUCOMYST FOR RT) 200 MG RTQ6H NE B Albuterol/Ipratropium (DUONEB) 3 ML RTQ6H NEB Bisacodyl (DULCOLAX) 10 MG ONCE PRN RECTAL Dopamine HCl/Dextrose (DOPamine 400MG/D5W 250ML) 250 ML ASDIR IV Milrinone Lactate/Dextrose (MILRINONE 20MG/D5W 1 00ML) 100 ML ASDIR IV ( CKD) Vasopressin (VASOSTRICT 20 Unit/NS 100ML) 100 ML ASDIR IV (CKD) Acetaminophen (TYLENOL) 650 MG Q4H PRN PRN RECTA L Calcium Chloride (CALCIUM CHLORIDE) 1 GM ASDIR P RN IV Magnesium Sulfate (MAGNESIUM SULFATE 4GM/SWFI 10 0ML) 100 ML ASDIR PRN IV Magnesium Sulfate (MAGNESIUM SULFATE 2GM/SWFI 50 ML) 50 ML ASDIR PRN IV Magnesium Sulfate/Dextrose (MAGNESIUM SULFATE 1G M/D5W 100ML) 100 ML ASDIR PRN IV Nitroglycerin/Dextrose (NITROGLYCERIN 50,000MCG/ D5W 250ML) 250 ML ASDIR IV Norepinephrine Bitartrate (NOREPINEPHRINE 8 MG/N S 250 ML) 250 ML TITRATE IV Potassium Chloride (KCL 20MEQ/SWFI 100ML) 100 ML ASDIR PRN IV Sodium Bicarbonate (SODIUM BICARBONATE) 50 MEQ A SDIR PRN IV Ondansetron HCl (ZOFRAN) 4 MG Q6H PRN PRN IV Physical Exam General appearance: alert, awake, oriented ENT: normal nose Neck: no JVD Cardiovascular: CV assessment: pedal edema, regular rate and rh ythm Respiratory: decreased breath sounds, on oxygen, shortness of breath, no distress Abdomen: obese Genitourinary: no flank pain, no urinary cathete r Upper extremity: UE assessment: normal temperature, no edema Lower extremity: LE assessment: edema 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, 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 Skin: dry Psychiatry: normal affect, normal mood Results Findings/Data: Laboratory Tests 01/04 01/04 01/04 01/03 01/03 1015 0748 0 2010 163 Chemistry Sodium (134 - 147 mEq/L) 144 Potassium (3.4 - 5.0 mEq/L) 3.5 Chloride (100 - 108 mEq/L) 102 Carbon Dioxide (21 - 33 mEq/l) 36 H Anion Gap (0 - 20) 10 BUN (7 - 18 mg/dL) 26 H Creatinine (0.6 - 1.3 mg/dL) 0.9 Glomerular Filtr Rate (70 - 80) 60.6 L Glucose (70 - 110 mg/dL) 103 POC Glucose (70 - 110 MG/DL) 141 H 87 117 H 18 0 H Calcium (8.0 - 10.5 mg/dL) 9.8 Magnesium (1.80 - 2.40 mg/dL) 2.02 01/03 1228 Chemistry POC Glucose (70 - 110 MG/DL) 189 H Laboratory Tests 01/04 0330 Hematology WBC (4.5 - 11.0 x10 3/uL) 7.3 RBC (3.54 - 5.02 x10 6/uL) 2.11 L Hgb (11.0 - 15.0 g/dL) 8.1 L Hct (33.0 - 45.0 %) 24.0 L MCV (81.0 - 99.0 fL) 113.7 H MCH (27.0 - 33.0 pg) 38.4 H MCHC (33.0 - 37.0 g/dL) 33.8 RDW (11.5 - 14.5 %) 19.1 H Plt Count (150 - 400 x10 3/uL) 255 MPV (7.0 - 9.0 fL) 10.6 H Neut % (Auto) (56.0 - 77.0 %) 80.2 H Lymph % (Auto) (14.0 - 32.0 %) 6.3 L Barron % (Auto) (4.8 - 9.0 %) 9.7 H Eos % (Auto) (0.3 - 3.7 %) 1.8 Baso % (Auto) (0.0 - 2.0 %) 0.5 Neut # (Auto) (2.0 - 7.6 x10 3/uL) 5.86 Lymph # (Auto) (1.0 - 3.8 x10 3/uL) 0.46 L Barron # (Auto) (0.1 - 0.8 x10 3/uL) 0.71 Eos # (Auto) (0.0 - 0.2 x10 3/uL) 0.13 Baso # (Auto) (0.0 - 0.2 x10 3/uL) 0.04 Abs Immat Gran (auto) (0.00 - 0.03 x10 3/uL) 0. 11 H Add Manual Diff NO Immature Gran % (0.0 - 2.0 %) 1.5 Nucleated RBC % (0 - 0 %) 0.4 H Nucleated RBCs # (Man) (0.0 - 0.1 x10 3/uL) 0.0 3 Laboratory Tests 01/04 0330 Chemistry Magnesium (1.80 - 2.40 mg/dL) 2.02 Radiology data: Recent Impressions: RADIOLOGY - XR CHEST 1 V 01/04 0712 Report Impression - Status: SIGNED Entered: 01/04/2022 0813 IMPRESSION: Mild worsening right basilar opacities. Otherwis e, stable exam. Impression By: Seamus - Mark Anthony Willis M.D. Diagnosis, Assessment Plan Free Text DxA P Notes Free Text DxA P Notes: Ms Giles is a 76 y/o Femal w / PMHx: CAD, HLD, T2DM, RONA (CPAP at home), smoker, Crohn's disease, AF s/p ablation (on Xarelto), s /p PPM and lymphedema. Dr. Fortune is consulted for CAD s/p CABG, MVR. 1. CAD s/p CABG, MVR, and ILAA. post-op per CTS and critical care On Plavix, aspirin, beta-delma, statin volume management per Nephrology negative fluid balance 2. Chronic AF s/p PPM/ablation. had ILAA during bypass no need for AC 3. Hypertension continue metoprolol tartrate to 25 mg BID 4. Hyperlipidemia Continue statins. 5. Crohn's disease. Per IM. 6. MARCELLO - resolving per Nephrology 7. Resp insufficiency BiPAP as needed on Nasal cannula Slowly improving 8. Acute on chronic diastolic CHF/volume overloa d diuretic management per nephrology/CTS Slowly improving continue supportive care PT/OT as tolerated 01/03/2022 Still volume overloaded, she is on Lasix and Diamox per nephrology may need to uptitrate the dose. Continue PT OT 01/04/2022: Continue diuresis per nephrology, PT OT and deb treviño inpatient rehab Electronically Signed by Aruna Fortune MD on at 1319 RPT #:[id number] END OF REPORT 2022-01-03 13:20:00-00:00 [facility] Cardiothoracic Surgery Prog REPORT#:[id number] REPORT STATUS: Signed DATE:01/03/22 TIME: 1320 PATIENT: SAÚL GILES UNIT #: [id number] ROOM/BED: [place] [address] : 43 AGE: 76 SEX: F ATTEND: Leah More MD ADM AUTHOR: René Romero MD * ALL edits or amendments must be made on the [employer]/computer document * General Post-op: post surgery rounds Status post: 1. Mitral valve replacement (31 Magna valve). 2. Coronary artery bypass graft surgery x1 (GOMES A to LAD). 3. Isolation of left atrial appendage. 4. Pericardiectomy. Subjective Chief complaint: Shortness of breath Review of Systems Constitutional: Denies: fever, malaise. Allergy/Immun: Denies: allergic reaction. ENT: Denies: sore throat. Respiratory: Denies: SOB. GI: Denies: abdominal pain. Heme: Denies: bleeding. Neuro: Denies: focal weakness, headache. All systems rev neg: except as marked Objective General VS/I O Last Documented: Result Date Time Pulse Ox 86 01/03 1217 B/P 134/76 01/03 1217 B/P Mean 95.4 01/03 1217 O2 Delivery Nasal cannula 01/03 1217 Temp 36.4 01/03 1217 Pulse 74 01/03 1217 Resp 16 01/03 1217 O2 Flow Rate 3 01/03 0854 FiO2 40 01/03 0437 24 hour I O ending at 0700: 01/03 0700 01/02 1900 Intake Total 290 Output Total 400 1800 Balance -400 -1510 Intake, Oral 240 Intake, Oral 50 Supplement Number 1 Bowel Movements Output, Urine 400 1800 Patient 118.9 kg Weight Weight Standing scale Measurement Method PATIENT WEIGHT: Weight (lb): 262 Weight (oz): 2.07 Weight (kg): 118.900 Dietitian Nutrition assessment The data set between the solid lines has been im ported from the dietitian's assessment. BMI Calculated: 45.0 Nutrition related diagnosis: Morbid obesity Nutrition diagnosis details: BMI 40 or more Nutrition problem: Increased nutrient needs Nutrition etiology: Chronic disease Nutrition signs and symptoms: S/P CABG Nutrition prescription: 1. RECOMMEND 1800 ADA DI ABETIC DIET WITH HX OF DM. 2. PROVIDE GLUCERNA TID WITH MEALS. 3. MONITOR PO, WT, LABS, BM. Dietitian name: Serenity Garner, DIET Assessment completed: 12/30/21 Physical Exam General appearance: alert, awake, oriented Wound/incision: Location: sternal Site condition: edges approximated, incision in tact, no drainage HEENT: anicteric Neck: supple/no meningismus Cardiovascular: normal heart sounds, regular rat e rhythm Respiratory: aerating well, symmetric expansion, no distress Abdomen: soft, non-tender Extremities: moves all 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, 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, normal speech Skin: dry, intact, normal temperature Psychiatry: normal affect, normal mood Current Medications Medications: Active Meds + DC'd Last 24 Hrs Potassium Chloride (POTASSIUM CHLORIDE 20MEQ TAB .ER) 40 MEQ ONCE ONE PO (DC) Metoprolol Tartrate (LOPRESSOR) 25 MG Q12HR PO Acetazolamide (DIAMOX) 500 MG Q24H IV Furosemide (LASIX 40 mg/4 mL INJECTION) 40 MG DA EMELIA IV Sterile Water (WATER FOR INJECTION) 5 ML ASDIR P RN IV Potassium Chloride (POTASSIUM CHLORIDE 20MEQ TAB .ER) 40 MEQ DAILY PRN PRN PO Insulin Glargine (Lantus/Semglee) 30 UNIT DAILY SUBQ Insulin Glargine (Lantus/Semglee) 20 UNIT BEDTIM E SUBQ Insulin Human Lispro (HUMALOG) 0 AC HS SUBQ Dextrose/Water (DEXTROSE 10% IN WATER) 125 ML DIR PRN IV (CKD) Dextrose/Water (DEXTROSE 10% IN WATER) 250 ML DIR PRN IV (CKD) Glucagon (GLUCAGON) 1 MG ASDIR PRN IM Amiodarone HCl (CORDARONE) 200 MG BID PO Sterile Water (WATER FOR INJECTION) 5 ML ASDIR P RN IV Sterile Water (WATER FOR INJECTION) 5 ML ASDIR P RN IV Sodium Chloride (SODIUM CHLORIDE) 4 ML RTBID NE B Melatonin (Melatonin) 3 MG BEDTIME PO Sodium Chloride (SODIUM CHLORIDE) 10 ML BID IV Sodium Chloride (SODIUM CHLORIDE) 10 ML ASDIR NE N IV Pantoprazole (PROTONIX) 40 MG DAILY PO Dexmedetomidine/Sodium Chloride (PRECEDEX 1000MC G/NS 250ML) 250 ML ASDIR IV Bisacodyl (DULCOLAX) 10 MG DAILY PRN PRN RECTAL Lactulose (LACTULOSE) 20 GM DAILY PRN PRN PO Magnesium Hydroxide (MILK OF MAGNESIA) 30 ML PETER LY PRN PRN PO Aspirin (ASPIRIN) 81 MG DAILY PO Clopidogrel Bisulfate (Plavix) 75 MG DAILY PO Cyanocobalamin (Vitamin B-12 500 mcg tab) 500 MC G DAILY PO Ferrous Sulfate (FERROUS SULFATE) 325 MG DAILY P O Metolazone (metOLazone) 5 MG DAILY PO Polyethylene Glycol (MIRALAX) 17 GM DAILY PO Atorvastatin Calcium (LIPITOR) 40 MG 2100 PO Docusate Sodium (DOCUSATE SODIUM) 100 MG BID PO Senna (SENOKOT) 17.6 MG BEDTIME PO Acetaminophen (TYLENOL) 650 MG Q4H PRN PRN PO Acetylcysteine (MUCOMYST FOR RT) 200 MG RTQ6H NE B Albuterol/Ipratropium (DUONEB) 3 ML RTQ6H NEB Bisacodyl (DULCOLAX) 10 MG ONCE PRN RECTAL Dopamine HCl/Dextrose (DOPamine 400MG/D5W 250ML) 250 ML ASDIR IV Milrinone Lactate/Dextrose (MILRINONE 20MG/D5W 1 00ML) 100 ML ASDIR IV ( CKD) Vasopressin (VASOSTRICT 20 Unit/NS 100ML) 100 ML ASDIR IV (CKD) Acetaminophen (TYLENOL) 650 MG Q4H PRN PRN RECTA L Calcium Chloride (CALCIUM CHLORIDE) 1 GM ASDIR P RN IV Magnesium Sulfate (MAGNESIUM SULFATE 4GM/SWFI 10 0ML) 100 ML ASDIR PRN IV Magnesium Sulfate (MAGNESIUM SULFATE 2GM/SWFI 50 ML) 50 ML ASDIR PRN IV Magnesium Sulfate/Dextrose (MAGNESIUM SULFATE 1G M/D5W 100ML) 100 ML ASDIR PRN IV Nitroglycerin/Dextrose (NITROGLYCERIN 50,000MCG/ D5W 250ML) 250 ML ASDIR IV Norepinephrine Bitartrate (NOREPINEPHRINE 8 MG/N S 250 ML) 250 ML TITRATE IV Potassium Chloride (KCL 20MEQ/SWFI 100ML) 100 ML ASDIR PRN IV Sodium Bicarbonate (SODIUM BICARBONATE) 50 MEQ A SDIR PRN IV Ondansetron HCl (ZOFRAN) 4 MG Q6H PRN PRN IV Results Findings/Data: Laboratory Tests 01/03 01/03 01/03 01/02 01/02 1228 0728 0455 1908 1644 Chemistry Sodium (134 - 147 mEq/L) 144 Potassium (3.4 - 5.0 mEq/L) 3.3 L Chloride (100 - 108 mEq/L) 102 Carbon Dioxide (21 - 33 mEq/l) 37 H Anion Gap (0 - 20) 9 BUN (7 - 18 mg/dL) 25 H Creatinine (0.6 - 1.3 mg/dL) 1.0 Glomerular Filtr Rate (70 - 80) 53.6 L Glucose (70 - 110 mg/dL) 95 POC Glucose (70 - 110 MG/DL) 189 H 96 187 H 164 H Calcium (8.0 - 10.5 mg/dL) 9.8 Magnesium (1.80 - 2.40 mg/dL) 2.20 Laboratory Tests 01/03 0455 Hematology WBC (4.5 - 11.0 x10 3/uL) 9.1 RBC (3.54 - 5.02 x10 6/uL) 2.31 L Hgb (11.0 - 15.0 g/dL) 8.3 L Hct (33.0 - 45.0 %) 25.9 L MCV (81.0 - 99.0 fL) 112.1 H MCH (27.0 - 33.0 pg) 35.9 H MCHC (33.0 - 37.0 g/dL) 32.0 L RDW (11.5 - 14.5 %) 17.7 H Plt Count (150 - 400 x10 3/uL) 260 MPV (7.0 - 9.0 fL) 10.5 H Neut % (Auto) (56.0 - 77.0 %) 81.4 H Lymph % (Auto) (14.0 - 32.0 %) 5.6 L Barron % (Auto) (4.8 - 9.0 %) 9.3 H Eos % (Auto) (0.3 - 3.7 %) 2.0 Baso % (Auto) (0.0 - 2.0 %) 0.3 Neut # (Auto) (2.0 - 7.6 x10 3/uL) 7.41 Lymph # (Auto) (1.0 - 3.8 x10 3/uL) 0.51 L Barron # (Auto) (0.1 - 0.8 x10 3/uL) 0.85 H Eos # (Auto) (0.0 - 0.2 x10 3/uL) 0.18 Baso # (Auto) (0.0 - 0.2 x10 3/uL) 0.03 Abs Immat Gran (auto) (0.00 - 0.03 x10 3/uL) 0. 13 H Add Manual Diff NO Immature Gran % (0.0 - 2.0 %) 1.4 Nucleated RBC % (0 - 0 %) 0.8 H Nucleated RBCs # (Man) (0.0 - 0.1 x10 3/uL) 0.0 7 Radiology data: Recent Impressions: RADIOLOGY - XR CHEST 1 V 01/03 0645 Report Impression - Status: SIGNED Entered: 01/03/2022 0839 IMPRESSION: 1. Unchanged multifocal patchy bilateral airspac e disease in the left lung base and right mid and lower lung. 2. Unchanged small bilateral pleural effusions. Impression By: AureliaAMSelma - Nicholas Dominguez M.D. Results: labs reviewed, vital signs stab le, x-ray personally reviewed, current med profile rev'd Treatment Prophylaxis Treatment Prophylaxis Oxygen: CPAP/BIPAP Diagnosis, Assessment Plan Hospital course to date: 02/02/22 doing very well de line de tube diuresis ambulate advance diet transfer to [facility] d/c planning 01/03 Patient doing well post operatively, no distress noted Sitting up in chair at the bedside Labs and CXR reviewed Replaced electrolytes Currently on 3l N/C- encourage incentive spirome ter use Ambulate with PT/OT Diuresis per nephrology- monitor renal function and strict I and O's Discharge planning for inpatient rehab [facility]- pending female bed available on Wednesday Consultants: cardiology, cardiovascular surgery, critical/hired help at 1749 RPT #:[id number] END OF REPORT 2022-01-03 12:42:00-00:00 [facility] Hospitalist Progress Note REPORT#:[id number] REPORT STATUS: Signed DATE:01/03/22 TIME: 1242 PATIENT: SAÚL GILES UNIT #: [id number] ROOM/BED: 3[address]1 : 43 AGE: 76 SEX: F ATTEND: Ayala More MD ADM AUTHOR: Meryl Rosa MD * ALL edits or amendments must be made on the [facility]/computer document * Subjective Chief complaint: she is tire . acute respiratory failure --post CABG rehab placement -- pending bed -- may be tursday HPI: 76 years old female with PMH of macular degeneration, obesity, obstructive sleep apnea (CPAP at home), former smoker, hypertensio n, hyperlipidemia, diabetes, Crohn's disease, chronic atr ial fibrillation status post 3 ablations in the past (on Xarelto), pacemaker plac cindi is admitted to the hospital post cardiac cath . she need CABG . she had sob for years . sob go t worse . she was admitted to the hospital in [place] . she had cath 3 we eks ago . she was reffered to here for stents placement . she had cath yesterd ay . it show multiple vessels CAD . she is recommend CABG . she still feel sob . no cp no nausea no vomiting no fever no abdominal pain no dizziness . Review of Systems Constitutional: Reports: fatigue, generalized weakness. Denies: fever, lethargy. Respiratory: Reports: DOUGLASS (dyspnea on exertion), SOB. Denies: productive cough (sputum), wheezing. Cardiovascular: Reports: DOUGLASS (dyspnea on exertion). Denies: ches t pain, edema, orthopnea, palpitations. GI: Denies: abdominal pain, nausea, vomiting. Neuro: Denies: dizziness. Objective General VS/I O: Vital Signs: Date Time Temp Pulse Resp B/P B/P Pulse O2 O2 F low FiO2 Mean Ox Delivery Rate 01/03 1217 36.4 74 16 134/76 95.4 86 Nasal cannula 01/03 0854 100 Nasal 3 cannula 01/03 0800 Nasal 3 cannula 01/03 0753 36.4 73 16 134/74 94.3 92 Nasal cannula 01/03 0739 96 Nasal 3 cannula 01/03 0437 69 96 40 01/03 0437 96 BiPAP 40 01/03 0254 36.4 70 20 118/70 85.6 92 01/03 0129 76 100 40 01/03 0039 High flow 13 nasal cannula 01/03 0001 36.4 77 19 137/80 99.2 100 01/02 2159 67 97 40 01/02 2159 97 BiPAP 40 01/02 1911 36.3 81 18 134/59 84.0 100 01/02 1649 36.4 74 16 136/70 92.3 99 Nasal cannula 01/02 1300 72 25 99 24 hour I O ending at 0700: 01/03 0700 01/02 1900 Intake Total 290 Output Total 400 1800 Balance -400 -1510 Intake, Oral 240 Intake, Oral 50 Supplement Number 1 Bowel Movements Output, Urine 400 1800 Patient 118.9 kg Weight Weight Standing scale Measurement Method PATIENT WEIGHT: Weight (lb): 262 Weight (oz): 2.07 Weight (kg): 118.900 Medications: Active Meds + DC'd Last 24 Hrs Potassium Chloride (POTASSIUM CHLORIDE 20MEQ TAB .ER) 40 MEQ ONCE ONE PO (DC) Metoprolol Tartrate (LOPRESSOR) 25 MG Q12HR PO Acetazolamide (DIAMOX) 500 MG Q24H IV Furosemide (LASIX 40 mg/4 mL INJECTION) 40 MG DA EMELIA IV Sterile Water (WATER FOR INJECTION) 5 ML ASDIR P RN IV Potassium Chloride (POTASSIUM CHLORIDE 20MEQ TAB .ER) 40 MEQ DAILY PRN PRN PO Insulin Glargine (Lantus/Semglee) 30 UNIT DAILY SUBQ Insulin Glargine (Lantus/Semglee) 20 UNIT BEDTIM E SUBQ Insulin Human Lispro (HUMALOG) 0 AC HS SUBQ Dextrose/Water (DEXTROSE 10% IN WATER) 125 ML DIR PRN IV (CKD) Dextrose/Water (DEXTROSE 10% IN WATER) 250 ML DIR PRN IV (CKD) Glucagon (GLUCAGON) 1 MG ASDIR PRN IM Amiodarone HCl (CORDARONE) 200 MG BID PO Sterile Water (WATER FOR INJECTION) 5 ML ASDIR P RN IV Sterile Water (WATER FOR INJECTION) 5 ML ASDIR P RN IV Sodium Chloride (SODIUM CHLORIDE) 4 ML RTBID NEB Melatonin (Melatonin) 3 MG BEDTIME PO Sodium Chloride (SODIUM CHLORIDE) 10 ML BID IV Sodium Chloride (SODIUM CHLORIDE) 10 ML ASDIR NE N IV Pantoprazole (PROTONIX) 40 MG DAILY PO Dexmedetomidine/Sodium Chloride (PRECEDEX 1000MC G/NS 250ML) 250 ML ASDIR IV Bisacodyl (DULCOLAX) 10 MG DAILY PRN PRN RECTAL Lactulose (LACTULOSE) 20 GM DAILY PRN PRN PO Magnesium Hydroxide (MILK OF MAGNESIA) 30 ML PETER LY PRN PRN PO Aspirin (ASPIRIN) 81 MG DAILY PO Clopidogrel Bisulfate (Plavix) 75 MG DAILY PO Cyanocobalamin (Vitamin B-12 500 mcg tab) 500 MC G DAILY PO Ferrous Sulfate (FERROUS SULFATE) 325 MG DAILY P O Metolazone (metOLazone) 5 MG DAILY PO Polyethylene Glycol (MIRALAX) 17 GM DAILY PO Atorvastatin Calcium (LIPITOR) 40 MG 2100 PO Docusate Sodium (DOCUSATE SODIUM) 100 MG BID PO Senna (SENOKOT) 17.6 MG BEDTIME PO Acetaminophen (TYLENOL) 650 MG Q4H PRN PRN PO Acetylcysteine (MUCOMYST FOR RT) 200 MG RTQ6H NE B Albuterol/Ipratropium (DUONEB) 3 ML RTQ6H NEB Bisacodyl (DULCOLAX) 10 MG ONCE PRN RECTAL Dopamine HCl/Dextrose (DOPamine 400MG/D5W 250ML) 250 ML ASDIR IV Milrinone Lactate/Dextrose (MILRINONE 20MG/D5W 1 00ML) 100 ML ASDIR IV ( CKD) Vasopressin (VASOSTRICT 20 Unit/NS 100ML) 100 ML ASDIR IV (CKD) Acetaminophen (TYLENOL) 650 MG Q4H PRN PRN RECTA L Calcium Chloride (CALCIUM CHLORIDE) 1 GM ASDIR P RN IV Magnesium Sulfate (MAGNESIUM SULFATE 4GM/SWFI 10 0ML) 100 ML ASDIR PRN IV Magnesium Sulfate (MAGNESIUM SULFATE 2GM/SWFI 50 ML) 50 ML ASDIR PRN IV Magnesium Sulfate/Dextrose (MAGNESIUM SULFATE 1G M/D5W 100ML) 100 ML ASDIR PRN IV Nitroglycerin/Dextrose (NITROGLYCERIN 50,000MCG/ D5W 250ML) 250 ML ASDIR IV Norepinephrine Bitartrate (NOREPINEPHRINE 8 MG/N S 250 ML) 250 ML TITRATE IV Potassium Chloride (KCL 20MEQ/SWFI 100ML) 100 ML ASDIR PRN IV Sodium Bicarbonate (SODIUM BICARBONATE) 50 MEQ A SDIR PRN IV Ondansetron HCl (ZOFRAN) 4 MG Q6H PRN PRN IV Physical Exam General appearance: alert, awake, oriented Head/Eyes: atraumatic, normal conjunctiva/sclera , normal eyelids/periorb., normocephalic Neck: full range of motion, non-tender, no JVD Cardiovascular: normal heart sounds, regular rat e rhythm Respiratory: decreased breath sounds, clear to a uscultation Abdomen: non-tender, normal bowel sounds, soft, no distention Extremities: edema, moves all, no calf tendernes s 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, 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 Skin: dry, intact Results Findings/Data: Laboratory Tests 01/03 01/03 01/03 01/02 01/02 1228 0728 0455 1908 1644 Chemistry Sodium (134 - 147 mEq/L) 144 Potassium (3.4 - 5.0 mEq/L) 3.3 L Chloride (100 - 108 mEq/L) 102 Carbon Dioxide (21 - 33 mEq/l) 37 H Anion Gap (0 - 20) 9 BUN (7 - 18 mg/dL) 25 H Creatinine (0.6 - 1.3 mg/dL) 1.0 Glomerular Filtr Rate (70 - 80) 53.6 L Glucose (70 - 110 mg/dL) 95 POC Glucose (70 - 110 MG/DL) 189 H 96 187 H 16 4 H Calcium (8.0 - 10.5 mg/dL) 9.8 Magnesium (1.80 - 2.40 mg/dL) 2.20 Laboratory Tests 01/03 0455 Hematology WBC (4.5 - 11.0 x10 3/uL) 9.1 RBC (3.54 - 5.02 x10 6/uL) 2.31 L Hgb (11.0 - 15.0 g/dL) 8.3 L Hct (33.0 - 45.0 %) 25.9 L MCV (81.0 - 99.0 fL) 112.1 H MCH (27.0 - 33.0 pg) 35.9 H MCHC (33.0 - 37.0 g/dL) 32.0 L RDW (11.5 - 14.5 %) 17.7 H Plt Count (150 - 400 x10 3/uL) 260 MPV (7.0 - 9.0 fL) 10.5 H Neut % (Auto) (56.0 - 77.0 %) 81.4 H Lymph % (Auto) (14.0 - 32.0 %) 5.6 L Barron % (Auto) (4.8 - 9.0 %) 9.3 H Eos % (Auto) (0.3 - 3.7 %) 2.0 Baso % (Auto) (0.0 - 2.0 %) 0.3 Neut # (Auto) (2.0 - 7.6 x10 3/uL) 7.41 Lymph # (Auto) (1.0 - 3.8 x10 3/uL) 0.51 L Barron # (Auto) (0.1 - 0.8 x10 3/uL) 0.85 H Eos # (Auto) (0.0 - 0.2 x10 3/uL) 0.18 Baso # (Auto) (0.0 - 0.2 x10 3/uL) 0.03 Abs Immat Gran (auto) (0.00 - 0.03 x10 3/uL) 0. 13 H Add Manual Diff NO Immature Gran % (0.0 - 2.0 %) 1.4 Nucleated RBC % (0 - 0 %) 0.8 H Nucleated RBCs # (Man) (0.0 - 0.1 x10 3/uL) 0.0 7 Treatment Prophylaxis Treatment Prophylaxis Drain(s)/tube(s): Drain(s)/tube(s): chest (x3) Diagnosis, Assessment Plan Consultants: cardiology, cardiovascular surgery, critical/hired help Free Text DxA P Notes Free text DxA P notes: 76 years old female with PMH of macular degeneration, obesity, obstructive sleep apnea (CPAP at home), former smoker, hypertensio n, hyperlipidemia, diabetes, Crohn's disease, chronic atr ial fibrillation status post 3 ablations in the past (on Xarelto), pacemaker placement CAD -- multiple vesssels HTN DM HLD Crohn's disease chronic atrial fibrillation status post 3 ablati ons macular degeneration obesity obstructive sleep apnea acute respiratory failure --post surgery severe mitral valve regurgitation constrictive pericarditis CAD -- cardiology consult CV surgeon consult CABG -- AM ASA/lipitor afib -- rate control -- hold xarelto for surgery HTN-- continue home med DM-- on lantus -- sliding scale HLD-- on lipitor RONA--cpap as need DVTP -- heparin 12/18- feel sob -- CABG -- afternoon 12/19--post MVR (31 Magna valve), CABG x 1 (ROBERTS- LAD), ILAA and pericardectomy -- she remain intubated on the vent -- chest tube are in place -on levophed and epinephrine drip -- monitor in CCU 12/20- she was extubated --on bipap now -- NPO --off Levophed/epinephrine, continue vasopressi n, inotropes with milrinone, -- chest tube remain in place -- she is stable post surgery 12/21-- she is on high flow O2 -- edema --lasix --chest tube in place --- she is hemodynamic stable -- continue monitor in CCU 12/22- she remain on high O2 CXR show worsening pulmonary venous vascular co ngestion. --lasix iv tid -- chest tube are out -- off drips -- NPO -- start TPN -- continue monitor in CCU 12/23- she remain on high flow O2 --less edema -- on TPN -- she is hemodynamic stable -- continue monitor in CVICU 12/24- she get better -- she is out bed and sit on the chair -- start ambulate with PT -- continue current management 12/25- she is doing well with PT remain on o2 continue iv lasix / add diamox continue supportive care continue monitor in CVICU 12/26- she is on bipap -- she remain sob and edema -- may start lasix drip as nurse -- continue supportive care 12/27 On lasix and insulin drips. Back on lantus dose BID, trend glucose. Continue PT/OT. 12/28 Increase lantus BID. 12/29-- she remain on bipap -- sob and edema --lasiv and diamox iv bid -- FS -- better control -- continue monitor in CVICU 12/30- she improve --less sob and edema -- she tolerance diet -- continue lasix -- continue PT/OT 12/31-- less sob and edema - -- ABG -- review -- improve -- continue lasix -- CM --LTAC evaluation 01/01- she improve now --she is on O2 -- NC 2 --lasix 40 mg iv qd -- continue PT/OT -- rehab placement as rehab 01/03 -- she feel tire . less sob -- no bed in rehab now -- continue monitor in the hospital -- rehab placement -- bed may be avalaible nest tursday as CM -- continue PT/OT -- replace K Electronically Signed by Meryl Rosa MD on 2 at 1410 RPT #:[id number] END OF REPORT 2022-01-03 12:28:00-00:[address] [facility] ([facility]) Nephrology Progress Note REPORT#:[id number] REPORT STATUS: Signed DATE:01/03/22 TIME: 1228 PATIENT: SAÚL GILES UNIT #: [id number] ROOM/BED: [place] [address] : 43 AGE: 76 SEX: F ATTEND: Leah More MD ADM AUTHOR: Suki Fuchs MD * ALL edits or amendments must be made on the el oLyferonic/computer document * Subjective Chief complaint: chest pain HPI: This is a 76-year-old female who has past medica l history of hypertension, diabetes, coronary artery disease, atrial fibril lation who presented with worsening shortness of breath and on further wor k-up was 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 She was with normal kidney function prior to surgery and afte r her surgery she began to develop oliguria. Her procedure was done without any complications but after her surgery she did require pressor support for hypotension and she was intubated for respiratory acidosis and hypoxia a nd she was treated with vancomycin for infection treatment. When she was seen this morning she continued to have hypotension and her heart rate was paced by her permanent pacemaker and her urine outp ut was 20 to 30/h. Her family at bedside denied any history of kidney disease, kidney stone, chronic NSAID use or any urinary complaints. They also endorse that her b lood pressure and diabetes were mostly controlled. 01/03 Looking comfortable, tolerating orally. Objective General VS/I O: Vital Signs: Date Time Temp Pulse Resp B/P B/P Pulse O2 O2 F low FiO2 Mean Ox Delivery Rate 01/03 1721 72 27 92 01/03 1700 72 22 99 01/03 1639 36.3 70 16 138/73 94.7 97 Nasal cannula 01/03 1600 69 21 100 01/03 1528 88 Nasal 3 cannula 01/03 1500 75 31 88 01/03 1331 75 30 88 01/03 1300 75 27 90 01/03 1217 36.4 74 16 134/76 95.4 86 Nasal cannula 01/03 1200 73 40 01/03 1100 71 20 96 01/03 0942 74 26 100 01/03 0900 69 22 98 01/03 0854 100 Nasal 3 cannula 01/03 0800 Nasal 3 cannula 01/03 0800 72 27 100 01/03 0753 36.4 73 16 134/74 94.3 92 Nasal cannula 01/03 0739 96 Nasal 3 cannula 01/03 07 74 12 100 01/03 0437 69 96 40 01/03 0437 96 BiPAP 40 01/03 0254 36.4 70 20 118/70 85.6 92 01/03 0129 76 100 40 01/03 0039 High flow 13 nasal cannula 01/03 0001 36.4 77 19 137/80 99.2 100 01/02 2159 67 97 40 01/02 2159 97 BiPAP 40 24 hour I O ending at 0700: 01/03 1900 Intake Total 290 Output Total 400 1800 Balance -400 -1510 Intake, Oral 240 Intake, Oral 50 Supplement Number 1 Bowel Movements Output, Urine 400 1800 Patient 118.9 kg Weight Weight Standing scale Measurement Method PATIENT WEIGHT: Weight (lb): 262 Weight (oz): 2.07 Weight (kg): 118.900 Physical Exam General appearance: alert, awake, oriented Head/eyes: atraumatic, normocephalic ENT: moist mucous membranes, normal nose Neck: no JVD, no lymphadenopathy Cardiovascular: normal heart sounds, regular rat e and rhythm Respiratory: aerating well, clear to auscultatio n Abdomen: soft, no pulsatile mass Genitourinary: urinary catheter Extremities: no gangrene, no swelling Treatment Prophylaxis Treatment Prophylaxis Drain(s)/tube(s): Drain(s)/tube(s): chest (x3) Diagnosis, Assessment Plan Free Text A P: This is a 76-year-old female known to have hyper tension, diabetes, atrial fibrillation, s/p permanent pacemaker and histor y of ablation presenting with shortness of breath and found to have multivesse l coronary artery disease therefore she had CABG on December 19 after which she has developed oliguria. Nephrology is following for: 1. Acute kidney injury: Most likely it i s prerenal (cardiorenal), she has been hypotensive postoperatively with require ment for pressor support and inotropic support. Plan is to increase inotropic support or pressor support to bring mean arterial pressure above 65 and give albumin with Lasix to see if it helps him diurese. If he does not respond to higher dose L asix with albumin then I will consider starting him on CRRT to prevent hyper v olemia. 2. Hypervolemia: Plan is to give Lasix a nd if he does not respond to start him on CRRT for extra fluid removal. 3. His electrolytes were all reviewed to be in normal range plan was to monitor and replace as needed. 4. He was receiving vancomycin so plan w as to monitor vancomycin trough levels to prevent ATN. 5/ Metabolic alkalosis secondary to diur etics : Plan to give acetazoleamide if worsening. 12/27 1. Acute kidney injury: Resolved, she is respond ing to lasix. 2. Hypervolemia: Plan to continue lasix as tolerated.Today she was on low dose twice daily lasix. 3. Hypokalemia/hypomagnesemia:secondary to diure tics, plan was to monitor and replace as needed. 4. She was receiving vancomy sanjana so plan was to monitor vancomycin trough levels to prevent ATN. 5/ Metabolic alkalosis secon lilli to diuretics : Plan to give acetazoleamide and monitor closely. 12/28 1. Acute kidney injury: Resolved, she is respond ing to lasix. 2. Hypervolemia: Plan to continue lasix as tolerated.Today she was on low dose twice daily lasix. 3. Hypokalemia/hypomagnesemia:secondary to diure tics, plan was to monitor and replace as needed. 4. She was receiving vancomy sanjana so plan was to monitor vancomycin trough levels to prevent ATN. 5/ Metabolic alkalosis secon lilli to diuretics : Plan to give acetazoleamide and monitor closely. 12/29 1. Acute kidney injury: Resolved, she is respond ing to lasix. 2. Hypervolemia: Plan to continue lasix as tolerated.Today she was on low dose twice daily lasix. 3. Hypokalemia/hypomagnesemia:secondary to diure tics, plan was to monitor and replace as needed. 4. She was receiving vancomy sanjana so plan was to monitor vancomycin trough levels to prevent ATN. 5/ Metabolic alkalosis secon lilli to diuretics : Plan to give acetazoleamide and monitor closely. 12/30 1. Acute kidney injury: Resolved, she is respond ing to lasix. 2. Hypervolemia: Plan to continue lasix as tolerated.Today she was on low dose twice daily lasix. 3. Hypokalemia/hypomagnesemia:secondary to diure tics, plan was to monitor and replace as needed. 4. Metabolic alkalosis secondary to diuretics : Plan to continue acetazoleamide and monitor closely. 12/31 1. Acute kidney injury: Resolved, she is respond ing to lasix. 2. Hypervolemia: Plan to continue lasix as tolerated.Today she was on low dose twice daily lasix. 3. Hypokalemia/hypomagnesemia:secondary to diure tics, plan was to monitor and replace as needed. 4. Metabolic alkalosis secondary to diuretics :I mproved so acetazoleamide reduced. 01/02 1. Acute kidney injury: Resolved, she is respond ing to lasix. 2. Hypervolemia: Plan to continue lasix as tolerated.Today she was on low dose daily lasix. 3. Hypokalemia/hypomagnesemia:secondary to diure tics, plan was to monitor and replace as needed. 4. Metabolic alkalosis secondary to diuretics : acetazoleamide /22 01/03 1. Acute kidney injury: Resolved, she is respond ing to lasix. 2. Hypervolemia: Plan to continue lasix as tolerated.Today she was on low dose daily lasix. 3. Hypokalemia/hypomagnesemia:secondary to diure tics, plan was to monitor and replace as needed. 4. Metabolic alkalosis secondary to diuretics : acetazoleamide continued. Plan was to continue same as patient stable from volume and electrolyte standpoint. Consultants: cardiology, cardiovascular surgery, critical/hired help Electronically Signed by Suki Fuchs MD on at 1948 RPT #:[id number] END OF REPORT 2022-01-03 09:52:00-00:00 [facility] Cardiology Progress Note REPORT#:[id number] REPORT STATUS: Signed DATE:01/03/22 TIME: 951 PATIENT: SAÚL GILES UNIT #: [id number] ROOM/BED: [facility]-1 : 43 AGE: 76 SEX: F ATTEND: Leah More MD ADM AUTHOR: Aruna Fortune MD * ALL edits or amendments must be made on the el oLyferonic/computer document * Subjective Free Text Subj Notes Free Text Subj Notes: Doing okay, still short of b reath, was walking down the hallway with PT support. Daughter was with the patient Objective General VS/I O: 24 hour I O ending at 0700: 01/03 0700 01/02 1900 Intake Total 290 Output Total 400 1800 Balance -400 -1510 Intake, Oral 240 Intake, Oral 50 Supplement Number 1 Bowel Movements Output, Urine 400 1800 Patient 118.9 kg Weight Weight Standing scale Measurement Method Vital Signs: Date Time Temp Pulse Resp B/P B/P Pulse O2 O2 F low FiO2 Mean Ox Delivery Rate 01/03 0753 97.5 73 16 134/74 94.3 92 Nasal cannula 01/03 0437 69 96 40 01/03 0437 96 BiPAP 40 01/03 0254 97.5 70 20 118/70 85.6 92 01/03 0129 76 100 40 01/03 0039 High flow 13 nasal cannula 01/03 0001 97.5 77 19 137/80 99.2 100 01/02 2159 67 97 40 01/02 2159 97 BiPAP 40 01/02 1911 97.3 81 18 134/59 84.0 100 01/02 1649 97.5 74 16 136/70 92.3 99 Nasal cannula 01/02 1300 72 25 99 01/02 1241 74 92 01/02 1000 69 28 148/83 108 94 PATIENT WEIGHT: Weight (lb): 262 Weight (oz): 2.07 Weight (kg): 118.900 Medications: Active Meds + DC'd Last 24 Hrs Metoprolol Tartrate (LOPRESSOR) 25 MG Q12HR PO Acetazolamide (DIAMOX) 500 MG Q24H IV Furosemide (LASIX 40 mg/4 mL INJECTION) 40 MG DA EMELIA IV Sterile Water (WATER FOR INJECTION) 5 ML ASDIR P RN IV Potassium Chloride (POTASSIUM CHLORIDE 20MEQ TAB .ER) 40 MEQ DAILY PRN PRN PO Insulin Glargine (Lantus/Semglee) 30 UNIT DAILY SUBQ Insulin Glargine (Lantus/Semglee) 20 UNIT BEDTIM E SUBQ Insulin Human Lispro (HUMALOG) 0 AC HS SUBQ Dextrose/Water (DEXTROSE 10% IN WATER) 125 ML DIR PRN IV (CKD) Dextrose/Water (DEXTROSE 10% IN WATER) 250 ML DIR PRN IV (CKD) Glucagon (GLUCAGON) 1 MG ASDIR PRN IM Amiodarone HCl (CORDARONE) 200 MG BID PO Sterile Water (WATER FOR INJECTION) 5 ML ASDIR P RN IV Sterile Water (WATER FOR INJECTION) 5 ML ASDIR P RN IV Sodium Chloride (SODIUM CHLORIDE) 4 ML RTBID NE B Melatonin (Melatonin) 3 MG BEDTIME PO Sodium Chloride (SODIUM CHLORIDE) 10 ML BID IV Sodium Chloride (SODIUM CHLORIDE) 10 ML ASDIR NE N IV Pantoprazole (PROTONIX) 40 MG DAILY PO Dexmedetomidine/Sodium Chloride (PRECEDEX 1000MC G/NS 250ML) 250 ML ASDIR IV Bisacodyl (DULCOLAX) 10 MG DAILY PRN PRN RECTAL Lactulose (LACTULOSE) 20 GM DAILY PRN PRN PO Magnesium Hydroxide (MILK OF MAGNESIA) 30 ML PETER LY PRN PRN PO Aspirin (ASPIRIN) 81 MG DAILY PO Clopidogrel Bisulfate (Plavix) 75 MG DAILY PO Cyanocobalamin (Vitamin B-12 500 mcg tab) 500 MC G DAILY PO Ferrous Sulfate (FERROUS SULFATE) 325 MG DAILY P O Metolazone (metOLazone) 5 MG DAILY PO Polyethylene Glycol (MIRALAX) 17 GM DAILY PO Atorvastatin Calcium (LIPITOR) 40 MG 2100 PO Docusate Sodium (DOCUSATE SODIUM) 100 MG BID PO Senna (SENOKOT) 17.6 MG BEDTIME PO Acetaminophen (TYLENOL) 650 MG Q4H PRN PRN PO Acetylcysteine (MUCOMYST FOR RT) 200 MG RTQ6H NE B Albuterol/Ipratropium (DUONEB) 3 ML RTQ6H NEB Bisacodyl (DULCOLAX) 10 MG ONCE PRN RECTAL Dopamine HCl/Dextrose (DOPamine 400MG/D5W 250ML) 250 ML ASDIR IV Milrinone Lactate/Dextrose (MILRINONE 20MG/D5W 1 00ML) 100 ML ASDIR IV ( CKD) Vasopressin (VASOSTRICT 20 Unit/NS 100ML) 100 ML ASDIR IV (CKD) Acetaminophen (TYLENOL) 650 MG Q4H PRN PRN RECTA L Calcium Chloride (CALCIUM CHLORIDE) 1 GM ASDIR P RN IV Magnesium Sulfate (MAGNESIUM SULFATE 4GM/SWFI 10 0ML) 100 ML ASDIR PRN IV Magnesium Sulfate (MAGNESIUM SULFATE 2GM/SWFI 50 ML) 50 ML ASDIR PRN IV Magnesium Sulfate/Dextrose (MAGNESIUM SULFATE 1G M/D5W 100ML) 100 ML ASDIR PRN IV Nitroglycerin/Dextrose (NITROGLYCERIN 50,000MCG/ D5W 250ML) 250 ML ASDIR IV Norepinephrine Bitartrate (NOREPINEPHRINE 8 MG/N S 250 ML) 250 ML TITRATE IV Potassium Chloride (KCL 20MEQ/SWFI 100ML) 100 ML ASDIR PRN IV Sodium Bicarbonate (SODIUM BICARBONATE) 50 MEQ A SDIR PRN IV Ondansetron HCl (ZOFRAN) 4 MG Q6H PRN PRN IV Physical Exam General appearance: alert, awake, oriented ENT: normal nose Neck: no JVD Cardiovascular: CV assessment: pedal edema, regular rate and rh ythm Respiratory: decreased breath sounds, on oxygen, shortness of breath, no distress Abdomen: obese Genitourinary: no flank pain, no urinary cathete r Upper extremity: UE assessment: normal temperature, no edema Lower extremity: LE assessment: edema 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, 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 Skin: dry Psychiatry: normal affect, normal mood Results Findings/Data: Laboratory Tests 01/03 01/03 01/02 01/02 01/02 0728 0455 1908 1644 1214 Chemistry Sodium (134 - 147 mEq/L) 144 Potassium (3.4 - 5.0 mEq/L) 3.3 L Chloride (100 - 108 mEq/L) 102 Carbon Dioxide (21 - 33 mEq/l) 37 H Anion Gap (0 - 20) 9 BUN (7 - 18 mg/dL) 25 H Creatinine (0.6 - 1.3 mg/dL) 1.0 Glomerular Filtr Rate (70 - 80) 53.6 L Glucose (70 - 110 mg/dL) 95 POC Glucose (70 - 110 MG/DL) 96 187 H 164 H 19 0 H Calcium (8.0 - 10.5 mg/dL) 9.8 Magnesium (1.80 - 2.40 mg/dL) 2.20 Laboratory Tests 01/03 0455 Hematology WBC (4.5 - 11.0 x10 3/uL) 9.1 RBC (3.54 - 5.02 x10 6/uL) 2.31 L Hgb (11.0 - 15.0 g/dL) 8.3 L Hct (33.0 - 45.0 %) 25.9 L MCV (81.0 - 99.0 fL) 112.1 H MCH (27.0 - 33.0 pg) 35.9 H MCHC (33.0 - 37.0 g/dL) 32.0 L RDW (11.5 - 14.5 %) 17.7 H Plt Count (150 - 400 x10 3/uL) 260 MPV (7.0 - 9.0 fL) 10.5 H Neut % (Auto) (56.0 - 77.0 %) 81.4 H Lymph % (Auto) (14.0 - 32.0 %) 5.6 L Barron % (Auto) (4.8 - 9.0 %) 9.3 H Eos % (Auto) (0.3 - 3.7 %) 2.0 Baso % (Auto) (0.0 - 2.0 %) 0.3 Neut # (Auto) (2.0 - 7.6 x10 3/uL) 7.41 Lymph # (Auto) (1.0 - 3.8 x10 3/uL) 0.51 L Barron # (Auto) (0.1 - 0.8 x10 3/uL) 0.85 H Eos # (Auto) (0.0 - 0.2 x10 3/uL) 0.18 Baso # (Auto) (0.0 - 0.2 x10 3/uL) 0.03 Abs Immat Gran (auto) (0.00 - 0.03 x10 3/uL) 0. 13 H Add Manual Diff NO Immature Gran % (0.0 - 2.0 %) 1.4 Nucleated RBC % (0 - 0 %) 0.8 H Nucleated RBCs # (Man) (0.0 - 0.1 x10 3/uL) 0.0 7 Laboratory Tests 01/03 0455 Chemistry Magnesium (1.80 - 2.40 mg/dL) 2.20 Radiology data: Recent Impressions: RADIOLOGY - XR CHEST 1 V 01/03 9731 Report Impression - Status: SIGNED Entered: 01/03/2022 4968 IMPRESSION: 1. Unchanged multifocal patchy bilateral airspac e disease in the left lung base and right mid and lower lung. 2. Unchanged small bilateral pleural effusions. Impression By: Brigida - Nicholas Dominguez M.D. Diagnosis, Assessment Plan Free Text DxA P Notes Free Text DxA P Notes: Ms Giles is a 76 y/o Femal w / PMHx: CAD, HLD, T2DM, RONA (CPAP at home), smoker, Crohn's disease, AF s/p ablation (on Xarelto), s /p PPM and lymphedema. Dr. Fortune is consulted for CAD s/p CABG, MVR. 1. CAD s/p CABG, MVR, and ILAA. post-op per CTS and critical care On Plavix, aspirin, beta-delma, statin volume management per Nephrology negative fluid balance 2. Chronic AF s/p PPM/ablation. had ILAA during bypass no need for AC 3. Hypertension continue metoprolol tartrate to 25 mg BID 4. Hyperlipidemia Continue statins. 5. Crohn's disease. Per IM. 6. MARCELLO - resolving per Nephrology 7. Resp insufficiency BiPAP as needed on Nasal cannula Slowly improving 8. Acute on chronic diastolic CHF/volume overloa d diuretic management per nephrology/CTS Slowly improving continue supportive care PT/OT as tolerated 01/03/2022 Still volume overloaded, she is on Lasix and Diamox per nephrology may need to uptitrate the dose. Continue PT OT Electronically Signed by Aruna Fortune MD on at 1017 RPT #:[id number] END OF REPORT 2022-01-02 22:27:00-00:00 [facility] Nephrology Progress Note REPORT#:[id number] REPORT STATUS: Signed DATE:01/02/22 TIME: 2226 PATIENT: SAÚL GILES UNIT #: [id number] ROOM/BED: [place] [address] : 43 AGE: 76 SEX: F ATTEND: Leah More MD ADM AUTHOR: Suki Fuchs MD * ALL edits or amendments must be made on the [employer] document * Subjective Chief complaint: chest pain HPI: This is a 76-year-old female who has past medica l history of hypertension, diabetes, coronary artery disease, atrial fibril lation who presented with worsening shortness of breath and on further wor k-up was 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 She was with normal kidney function prior to surgery and afte r her surgery she began to develop oliguria. Her procedure was done without any complications but after her surgery she did require pressor support for hypotension and she was intubated for respiratory acidosis and hypoxia a nd she was treated with vancomycin for infection treatment. When she was seen this morning she continued to have hypotension and her heart rate was paced by her permanent pacemaker and her urine outp ut was 20 to 30/h. Her family at bedside denied any history of kidney disease, kidney stone, chronic NSAID use or any urinary complaints. They also endorse that her b lood pressure and diabetes were mostly controlled. 12/30 Today she was comfortable, apearing less edemato us. Objective General VS/I O: Vital Signs: Date Time Temp Pulse Resp B/P B/P Pulse O2 O2 F low FiO2 Mean Ox Delivery Rate 01/02 2159 67 97 40 01/02 2159 97 BiPAP 40 01/02 1911 36.3 81 18 134/59 84.0 100 01/02 1649 36.4 74 16 136/70 92.3 99 Nasal cannula 01/02 1300 72 25 99 01/02 1241 74 92 01/02 1000 69 28 148/83 108 94 01/02 0915 94 Nasal 3 cannula 01/02 0901 74 22 133/101 110 99 01/02 0800 Nasal 3 cannula 01/02 0723 74 119/54 78 01/02 0612 76 126/72 94 01/02 0500 72 20 144/75 101 94 01/02 0403 96 Nasal 5 cannula 01/02 0400 73 22 146/65 93 95 01/02 0300 74 18 137/62 89 100 01/02 0201 75 21 171/107 126 99 01/02 0100 72 135/61 88 01/02 0000 36.6 75 17 137/62 87 98 BiPAP 40 01/02 0000 75 137/62 89 98 01/01 2350 72 100 40 01/01 2300 72 129/60 86 100 24 hour I O ending at 0700: 01/02 0700 01/01 1900 Intake Total 1260 Output Total 1500 Balance -240 Intake, Oral 1260 Number 2 Incontinent Voids Number Voids 2 Output, Urine 1500 Patient 120.1 kg Weight Weight Standing scale Measurement Method PATIENT WEIGHT: Weight (lb): 264 Weight (oz): 12.4 Weight (kg): 120.100 Physical Exam General appearance: alert, awake, oriented Head/eyes: atraumatic, normocephalic ENT: moist mucous membranes, normal nose Neck: no JVD, no lymphadenopathy Cardiovascular: normal heart sounds, regular rat e and rhythm Respiratory: aerating well, clear to auscultatio n Abdomen: soft, no pulsatile mass Genitourinary: urinary catheter Extremities: no gangrene, no swelling Treatment Prophylaxis Treatment Prophylaxis Drain(s)/tube(s): Drain(s)/tube(s): chest (x3) Diagnosis, Assessment Plan Free Text A P: This is a 76-year-old female known to have hyper tension, diabetes, atrial fibrillation, s/p permanent pacemaker and histor y of ablation presenting with shortness of breath and found to have multivesse l coronary artery disease therefore she had CABG on December 19 after which she has developed oliguria. Nephrology is following for: 1. Acute kidney injury: Most likely it i s prerenal (cardiorenal), she has been hypotensive postoperatively with require ment for pressor support and inotropic support. Plan is to increase inotropic support or pressor support to bring mean arterial pressure above 65 and give albumin with Lasix to see if it helps him diurese. If he does not respond to higher dose L asix with albumin then I will consider starting him on CRRT to prevent hyper v olemia. 2. Hypervolemia: Plan is to give Lasix a nd if he does not respond to start him on CRRT for extra fluid removal. 3. His electrolytes were all reviewed to be in normal range plan was to monitor and replace as needed. 4. He was receiving vancomycin so plan w as to monitor vancomycin trough levels to prevent ATN. 5/ Metabolic alkalosis secondary to diur etics : Plan to give acetazoleamide if worsening. 12/27 1. Acute kidney injury: Resolved, she is respond ing to lasix. 2. Hypervolemia: Plan to continue lasix as tolerated.Today she was on low dose twice daily lasix. 3. Hypokalemia/hypomagnesemia:secondary to diure tics, plan was to monitor and replace as needed. 4. She was receiving vancomy sanjana so plan was to monitor vancomycin trough levels to prevent ATN. 5/ Metabolic alkalosis secon lilli to diuretics : Plan to give acetazoleamide and monitor closely. 12/28 1. Acute kidney injury: Resolved, she is respond ing to lasix. 2. Hypervolemia: Plan to continue lasix as tolerated.Today she was on low dose twice daily lasix. 3. Hypokalemia/hypomagnesemia:secondary to diure tics, plan was to monitor and replace as needed. 4. She was receiving vancomy sanjana so plan was to monitor vancomycin trough levels to prevent ATN. 5/ Metabolic alkalosis secon lilli to diuretics : Plan to give acetazoleamide and monitor closely. 12/29 1. Acute kidney injury: Resolved, she is respond ing to lasix. 2. Hypervolemia: Plan to continue lasix as tolerated.Today she was on low dose twice daily lasix. 3. Hypokalemia/hypomagnesemia:secondary to diure tics, plan was to monitor and replace as needed. 4. She was receiving vancomy sanjana so plan was to monitor vancomycin trough levels to prevent ATN. 5/ Metabolic alkalosis secon lilli to diuretics : Plan to give acetazoleamide and monitor closely. 12/30 1. Acute kidney injury: Resolved, she is respond ing to lasix. 2. Hypervolemia: Plan to continue lasix as tolerated.Today she was on low dose twice daily lasix. 3. Hypokalemia/hypomagnesemia:secondary to diure tics, plan was to monitor and replace as needed. 4. Metabolic alkalosis secondary to diuretics : Plan to continue acetazoleamide and monitor closely. 12/31 1. Acute kidney injury: Resolved, she is respond ing to lasix. 2. Hypervolemia: Plan to continue lasix as tolerated.Today she was on low dose twice daily lasix. 3. Hypokalemia/hypomagnesemia:secondary to diure tics, plan was to monitor and replace as needed. 4. Metabolic alkalosis secondary to diuretics :I mproved so acetazoleamide reduced. 01/02 1. Acute kidney injury: Resolved, she is respond ing to lasix. 2. Hypervolemia: Plan to continue lasix as tolerated.Today she was on low dose daily lasix. 3. Hypokalemia/hypomagnesemia:secondary to diure tics, plan was to monitor and replace as needed. 4. Metabolic alkalosis secondary to diuretics : acetazoleamide continued. Consultants: cardiology, cardiovascular surgery, critical/hired help Electronically Signed by Suki Fuchs MD on at 2231 RPT #:[id number] END OF REPORT 2022-01-02 17:02:00-00:00 [facility] Cardiothoracic Surgery Prog REPORT#:[id number] REPORT STATUS: Signed DATE:01/02/22 TIME: 1702 PATIENT: SAÚL GILES UNIT #: [id number] ROOM/BED: [place] [address] : 43 AGE: 76 SEX: F ATTEND: eLah More MD ADM AUTHOR: Tj Bonner MD * ALL edits or amendments must be made on the [employer]/computer document * General Post-op: day 8 Status post: 1. Mitral valve replacement (31 Magna valve). 2. Coronary artery bypass graft surgery x1 (GOMES A to LAD). 3. Isolation of left atrial appendage. 4. Pericardiectomy. Objective General VS/I O Last Documented: Result Date Time Pulse Ox 99 01/02 1649 B/P 136/70 01/02 1649 B/P Mean 92.3 01/02 1649 O2 Delivery Nasal cannula 01/02 1649 Temp 36.4 01/02 164 Pulse 74 01/02 1649 Resp 16 01/02 164 O2 Flow Rate 3 01/02 0915 FiO2 40 01/02 0000 24 hour I O ending at 0700: 01/02 0700 01/01 1900 Intake Total 1260 Output Total 1500 Balance -240 Intake, Oral 1260 Number 2 Incontinent Voids Number Voids 2 Output, Urine 1500 Patient 120.1 kg Weight Weight Standing scale Measurement Method PATIENT WEIGHT: Weight (lb): 264 Weight (oz): 12.4 Weight (kg): 120.100 Physical Exam General appearance: awake Current Medications Medications: Active Meds + DC'd Last 24 Hrs Metoprolol Tartrate (LOPRESSOR) 25 MG Q12HR PO Acetazolamide (DIAMOX) 500 MG Q24H IV Furosemide (LASIX 40 mg/4 mL INJECTION) 40 MG DA EMELIA IV Sterile Water (WATER FOR INJECTION) 5 ML ASDIR PRN IV Potassium Chloride (POTASSIUM CHLORIDE 20MEQ TAB .ER) 40 MEQ DAILY PRN PRN PO Insulin Glargine (Lantus/Semglee) 30 UNIT DAILY SUBQ Insulin Glargine (Lantus/Semglee) 20 UNIT BEDTIM E SUBQ Insulin Human Lispro (HUMALOG) 0 AC HS SUBQ Dextrose/Water (DEXTROSE 10% IN WATER) 125 ML DIR PRN IV (CKD) Dextrose/Water (DEXTROSE 10% IN WATER) 250 ML DIR PRN IV (CKD) Glucagon (GLUCAGON) 1 MG ASDIR PRN IM Amiodarone HCl (CORDARONE) 200 MG BID PO Sterile Water (WATER FOR INJECTION) 5 ML ASDIR P RN IV Sterile Water (WATER FOR INJECTION) 5 ML ASDIR P RN IV Sodium Chloride (SODIUM CHLORIDE) 4 ML RTBID NEB Melatonin (Melatonin) 3 MG BEDTIME PO Sodium Chloride (SODIUM CHLORIDE) 10 ML BID IV Sodium Chloride (SODIUM CHLORIDE) 10 ML ASDIR NE N IV Pantoprazole (PROTONIX) 40 MG DAILY PO Dexmedetomidine/Sodium Chloride (PRECEDEX 1000MC G/NS 250ML) 250 ML ASDIR IV Bisacodyl (DULCOLAX) 10 MG DAILY PRN PRN RECTAL Lactulose (LACTULOSE) 20 GM DAILY PRN PRN PO Magnesium Hydroxide (MILK OF MAGNESIA) 30 ML PETER LY PRN PRN PO Aspirin (ASPIRIN) 81 MG DAILY PO Clopidogrel Bisulfate (Plavix) 75 MG DAILY PO Cyanocobalamin (Vitamin B-12 500 mcg tab) 500 MC G DAILY PO Ferrous Sulfate (FERROUS SULFATE) 325 MG DAILY P O Metolazone (metOLazone) 5 MG DAILY PO Polyethylene Glycol (MIRALAX) 17 GM DAILY PO Atorvastatin Calcium (LIPITOR) 40 MG 2100 PO Docusate Sodium (DOCUSATE SODIUM) 100 MG BID PO Senna (SENOKOT) 17.6 MG BEDTIME PO Acetaminophen (TYLENOL) 650 MG Q4H PRN PRN PO Acetylcysteine (MUCOMYST FOR RT) 200 MG RTQ6H NE B Albuterol/Ipratropium (DUONEB) 3 ML RTQ6H NEB Bisacodyl (DULCOLAX) 10 MG ONCE PRN RECTAL Dopamine HCl/Dextrose (DOPamine 400MG/D5W 250ML) 250 ML ASDIR IV Milrinone Lactate/Dextrose (MILRINONE 20MG/D5W 1 00ML) 100 ML ASDIR IV ( CKD) Vasopressin (VASOSTRICT 20 Unit/NS 100ML) 100 ML ASDIR IV (CKD) Acetaminophen (TYLENOL) 650 MG Q4H PRN PRN RECTA L Calcium Chloride (CALCIUM CHLORIDE) 1 GM ASDIR P RN IV Magnesium Sulfate (MAGNESIUM SULFATE 4GM/SWFI 10 0ML) 100 ML ASDIR PRN IV Magnesium Sulfate (MAGNESIUM SULFATE 2GM/SWFI 50 ML) 50 ML ASDIR PRN IV Magnesium Sulfate/Dextrose (MAGNESIUM SULFATE 1G M/D5W 100ML) 100 ML ASDIR PRN IV Nitroglycerin/Dextrose (NITROGLYCERIN 50,000MCG/ D5W 250ML) 250 ML ASDIR IV Norepinephrine Bitartrate (NOREPINEPHRINE 8 MG/N S 250 ML) 250 ML TITRATE IV Potassium Chloride (KCL 20MEQ/SWFI 100ML) 100 ML ASDIR PRN IV Sodium Bicarbonate (SODIUM BICARBONATE) 50 MEQ A SDIR PRN IV Ondansetron HCl (ZOFRAN) 4 MG Q6H PRN PRN IV Results Findings/Data: Laboratory Tests 01/02 0415 Blood Gas Puncture Site Art Line O2 Saturation (90 - 100 %) 96.7 ABG pH (7.35 - 7.45) 7.351 ABG pCO2 (35.0 - 45 mmHg) 69.0 *H ABG pO2 (80 - 100.0 mmHg) 94.8 ABG HCO3 (22.0 - 26.0 MMOL/L) 38.4 *H ABG Total CO2 40.5 ABG Base Excess (-4.0 - 4.0 MMOL/L) 12.7 H ABG Hematocrit (33.0 - 45.0 %) 27 L ABG Hemoglobin (11.0 - 15.0 G/DL) 9.3 L Martin Test N/A Sodium (134 - 147 MEQ/L) 143 Potassium (3.4 - 5.0 MEQ/L) 3.3 L Chloride (100 - 108 MEQ/L) 96 L Ionized Calcium (1.12 - 1.32 MMOL/L) 1.35 H Lactic Acid (0.9 - 1.7 mmol/l) 0.6 L Temperature (F) 98 O2 Delivery Device Cannula Laboratory Tests 01/02 01/02 01/02 01/02 01/01 1214 0900 0415 0400 2137 Chemistry Sodium (134 - 147 mEq/L) 143 Potassium (3.4 - 5.0 mEq/L) 3.4 Chloride (100 - 108 mEq/L) 100 Carbon Dioxide (21 - 33 mEq/l) 37 H Anion Gap (0 - 20) 9 BUN (7 - 18 mg/dL) 29 H Creatinine (0.6 - 1.3 mg/dL) 1.0 POC Creatinine (0.6 - 1.0 mg/dL) 1.2 H Glomerular Filtr Rate (70 - 80) 53.6 L Glucose (70 - 110 mg/dL) 146 H POC Glucose (70 - 110 MG/DL) 190 H 207 H 196 H POC Glucose (mg/dL) (70 - 110 MG/DL) 157 H Calcium (8.0 - 10.5 mg/dL) 9.8 Magnesium (1.80 - 2.40 mg/dL) 2.02 01/01 1809 Chemistry POC Glucose (70 - 110 MG/DL) 218 H Laboratory Tests 01/02 0400 Hematology WBC (4.5 - 11.0 x10 3/uL) 9.1 RBC (3.54 - 5.02 x10 6/uL) 2.32 L Hgb (11.0 - 15.0 g/dL) 8.1 L Hct (33.0 - 45.0 %) 25.6 L MCV (81.0 - 99.0 fL) 110.3 H MCH (27.0 - 33.0 pg) 34.9 H MCHC (33.0 - 37.0 g/dL) 31.6 L RDW (11.5 - 14.5 %) 17.3 H Plt Count (150 - 400 x10 3/uL) 272 MPV (7.0 - 9.0 fL) 11.0 H Neut % (Auto) (56.0 - 77.0 %) 80.2 H Lymph % (Auto) (14.0 - 32.0 %) 5.1 L Barron % (Auto) (4.8 - 9.0 %) 9.4 H Eos % (Auto) (0.3 - 3.7 %) 1.5 Baso % (Auto) (0.0 - 2.0 %) 0.4 Neut # (Auto) (2.0 - 7.6 x10 3/uL) 7.28 Lymph # (Auto) (1.0 - 3.8 x10 3/uL) 0.46 L Barron # (Auto) (0.1 - 0.8 x10 3/uL) 0.85 H Eos # (Auto) (0.0 - 0.2 x10 3/uL) 0.14 Baso # (Auto) (0.0 - 0.2 x10 3/uL) 0.04 Abs Immat Gran (auto) (0.00 - 0.03 x10 3/uL) 0. 31 H Add Manual Diff NO Immature Gran % (0.0 - 2.0 %) 3.4 H Nucleated RBC % (0 - 0 %) 1.5 H Nucleated RBCs # (Man) (0.0 - 0.1 x10 3/uL) 0.1 4 H Radiology data: Recent Impressions: RADIOLOGY - XR CHEST 1 V 01/02 0531 Report Impression - Status: SIGNED Entered: 01/02/2022 0801 IMPRESSION: No acute findings. Unchanged study. Impression By: [email or web address] Enrico Chong Results: x-ray personally reviewed, current med profile rev'd Diagnosis, Assessment Plan Hospital course to date: 02/02/22 doing very well de line de tube diuresis ambulate advance diet transfer to [facility] d/c planning Electronically Signed by Tj Bonner MD on 12/14 04/05 at 1704 RPT #:[id number] END OF REPORT 2022-01-02 14:45:00-00:00 [facility]L [facility] Cardiology Progress Note REPORT#:[id number] REPORT STATUS: Signed DATE:01/02/22 TIME: 1445 PATIENT: SAÚL GILES UNIT #: [id number] ROOM/BED: [place] [address] : 43 AGE: 76 SEX: F ATTEND: Leah More MD ADM AUTHOR: Isabella Clemens CNP * ALL edits or amendments must be made on the el ectronic/computer document * Subjective Comments: Working with PT Objective General VS/I O: 24 hour I O ending at 0700: 01/02 0700 10/20 1900 Intake Total 1260 Output Total 1500 Balance -240 Intake, Oral 1260 Number 2 Incontinent Voids Number Voids 2 Output, Urine 1500 Patient 120.1 kg Weight Weight Standing scale Measurement Method Vital Signs: Date Time Temp Pulse Resp B/P B/P Pulse O2 O2 F low FiO2 Mean Ox Delivery Rate 01/02 1300 72 25 99 01/02 1241 74 92 01/02 1000 69 28 148/83 108 94 01/02 0915 94 Nasal 3 cannula 01/02 0901 74 22 133/101 110 99 01/02 0800 Nasal 3 cannula 01/02 0723 74 119/54 78 01/02 0612 76 126/72 94 01/02 0500 72 20 144/75 101 94 01/02 0403 96 Nasal 5 cannula 01/02 0400 73 22 146/65 93 95 01/02 0300 74 18 137/62 89 100 01/02 0201 75 21 171/107 126 99 01/02 0100 72 135/61 88 01/02 0000 36.6 75 17 137/62 87 98 BiPAP 40 01/02 0000 75 137/62 89 98 01/01 2350 72 100 40 01/01 2300 72 129/60 86 100 01/01 2214 72 100 40 01/01 2200 69 23 117/56 80 100 01/01 2100 72 132/59 85 90 01/01 2013 95 Nasal 3 cannula 01/01 2001 69 21 129/60 87 100 01/01 2000 36.8 01/02 2000 Nasal 5 cannula 01/02 2000 69 21 129/60 83 100 Nasal 3 cannula 01/01 1900 75 23 132/61 88 99 01/01 1600 73 45 142/64 92 01/01 1501 72 31 127/58 84 PATIENT WEIGHT: Weight (lb): 264 Weight (oz): 12.4 Weight (kg): 120.100 Medications: Active Meds + DC'd Last 24 Hrs Metoprolol Tartrate (LOPRESSOR) 25 MG Q12HR PO Acetazolamide (DIAMOX) 500 MG Q24H IV Furosemide (LASIX 40 mg/4 mL INJECTION) 40 MG DA EMELIA IV Sterile Water (WATER FOR INJECTION) 5 ML ASDIR P RN IV Potassium Chloride (POTASSIUM CHLORIDE 20MEQ TAB .ER) 40 MEQ DAILY PRN PRN PO Insulin Glargine (Lantus/Semglee) 30 UNIT DAILY SUBQ Insulin Glargine (Lantus/Semglee) 20 UNIT BEDTIM E SUBQ Insulin Human Lispro (HUMALOG) 0 AC HS SUBQ Dextrose/Water (DEXTROSE 10% IN WATER) 125 ML DIR PRN IV (CKD) Dextrose/Water (DEXTROSE 10% IN WATER) 250 ML DIR PRN IV (CKD) Glucagon (GLUCAGON) 1 MG ASDIR PRN IM Amiodarone HCl (CORDARONE) 200 MG BID PO Sterile Water (WATER FOR INJECTION) 5 ML ASDIR P RN IV Sterile Water (WATER FOR INJECTION) 5 ML ASDIR P RN IV Sodium Chloride (SODIUM CHLORIDE) 4 ML RTBID NEB Melatonin (Melatonin) 3 MG BEDTIME PO Sodium Chloride (SODIUM CHLORIDE) 10 ML BID IV Sodium Chloride (SODIUM CHLORIDE) 10 ML ASDIR NE N IV Pantoprazole (PROTONIX) 40 MG DAILY PO Dexmedetomidine/Sodium Chloride (PRECEDEX 1000MC G/NS 250ML) 250 ML ASDIR IV Bisacodyl (DULCOLAX) 10 MG DAILY PRN PRN RECTAL Lactulose (LACTULOSE) 20 GM DAILY PRN PRN PO Magnesium Hydroxide (MILK OF MAGNESIA) 30 ML PETER LY PRN PRN PO Aspirin (ASPIRIN) 81 MG DAILY PO Clopidogrel Bisulfate (Plavix) 75 MG DAILY PO Cyanocobalamin (Vitamin B-12 500 mcg tab) 500 MC G DAILY PO Ferrous Sulfate (FERROUS SULFATE) 325 MG DAILY P O Metolazone (metOLazone) 5 MG DAILY PO Polyethylene Glycol (MIRALAX) 17 GM DAILY PO Atorvastatin Calcium (LIPITOR) 40 MG 2100 PO Docusate Sodium (DOCUSATE SODIUM) 100 MG BID PO Senna (SENOKOT) 17.6 MG BEDTIME PO Acetaminophen (TYLENOL) 650 MG Q4H PRN PRN PO Acetylcysteine (MUCOMYST FOR RT) 200 MG RTQ6H NE B Albuterol/Ipratropium (DUONEB) 3 ML RTQ6H NEB Bisacodyl (DULCOLAX) 10 MG ONCE PRN RECTAL Dopamine HCl/Dextrose (DOPamine 400MG/D5W 250ML) 250 ML ASDIR IV Milrinone Lactate/Dextrose (MILRINONE 20MG/D5W 1 00ML) 100 ML ASDIR IV ( CKD) Vasopressin (VASOSTRICT 20 Unit/NS 100ML) 100 ML ASDIR IV (CKD) Acetaminophen (TYLENOL) 650 MG Q4H PRN PRN RECTA L Calcium Chloride (CALCIUM CHLORIDE) 1 GM ASDIR P RN IV Magnesium Sulfate (MAGNESIUM SULFATE 4GM/SWFI 10 0ML) 100 ML ASDIR PRN IV Magnesium Sulfate (MAGNESIUM SULFATE 2GM/SWFI 50 ML) 50 ML ASDIR PRN IV Magnesium Sulfate/Dextrose (MAGNESIUM SULFATE 1G M/D5W 100ML) 100 ML ASDIR PRN IV Nitroglycerin/Dextrose (NITROGLYCERIN 50,000MCG/ D5W 250ML) 250 ML ASDIR IV Norepinephrine Bitartrate (NOREPINEPHRINE 8 MG/N S 250 ML) 250 ML TITRATE IV Potassium Chloride (KCL 20MEQ/SWFI 100ML) 100 ML ASDIR PRN IV Sodium Bicarbonate (SODIUM BICARBONATE) 50 MEQ A SDIR PRN IV Ondansetron HCl (ZOFRAN) 4 MG Q6H PRN PRN IV Status post: CABG, MVR, and ILAA Pacemaker: permanent Physical Exam General appearance: frail, obese, alert, awake, conversational ENT: normal nose Neck: no JVD Cardiovascular: CV assessment: pedal edema, regular rate and rh ythm Respiratory: decreased breath sounds, on oxygen, shortness of breath, no distress Abdomen: obese Genitourinary: no flank pain, no urinary cathete r Upper extremity: UE assessment: normal temperature, no edema Lower extremity: LE assessment: edema 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, 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 Skin: dry Psychiatry: normal affect, normal mood Results Findings/Data: Laboratory Tests 01/02 0579 Blood Gas Puncture Site Art Line O2 Saturation (90 - 100 %) 96.7 ABG pH (7.35 - 7.45) 7.351 ABG pCO2 (35.0 - 45 mmHg) 69.0 *H ABG pO2 (80 - 100.0 mmHg) 94.8 ABG HCO3 (22.0 - 26.0 MMOL/L) 38.4 *H ABG Total CO2 40.5 ABG Base Excess (-4.0 - 4.0 MMOL/L) 12.7 H ABG Hematocrit (33.0 - 45.0 %) 27 L ABG Hemoglobin (11.0 - 15.0 G/DL) 9.3 L Martin Test N/A Sodium (134 - 147 MEQ/L) 143 Potassium (3.4 - 5.0 MEQ/L) 3.3 L Chloride (100 - 108 MEQ/L) 96 L Ionized Calcium (1.12 - 1.32 MMOL/L) 1.35 H Lactic Acid (0.9 - 1.7 mmol/l) 0.6 L Temperature (F) 98 O2 Delivery Device Cannula Laboratory Tests 01/02 01/02 01/02 01/02 01/01 1214 0900 0415 0400 2137 Chemistry Sodium (134 - 147 mEq/L) 143 Potassium (3.4 - 5.0 mEq/L) 3.4 Chloride (100 - 108 mEq/L) 100 Carbon Dioxide (21 - 33 mEq/l) 37 H Anion Gap (0 - 20) 9 BUN (7 - 18 mg/dL) 29 H Creatinine (0.6 - 1.3 mg/dL) 1.0 POC Creatinine (0.6 - 1.0 mg/dL) 1.2 H Glomerular Filtr Rate (70 - 80) 53.6 L Glucose (70 - 110 mg/dL) 146 H POC Glucose (70 - 110 MG/DL) 190 H 207 H 196 H POC Glucose (mg/dL) (70 - 110 MG/DL) 157 H Calcium (8.0 - 10.5 mg/dL) 9.8 Magnesium (1.80 - 2.40 mg/dL) 2.02 01/01 1809 Chemistry POC Glucose (70 - 110 MG/DL) 218 H Laboratory Tests 01/02 0400 Hematology WBC (4.5 - 11.0 x10 3/uL) 9.1 RBC (3.54 - 5.02 x10 6/uL) 2.32 L Hgb (11.0 - 15.0 g/dL) 8.1 L Hct (33.0 - 45.0 %) 25.6 L MCV (81.0 - 99.0 fL) 110.3 H MCH (27.0 - 33.0 pg) 34.9 H MCHC (33.0 - 37.0 g/dL) 31.6 L RDW (11.5 - 14.5 %) 17.3 H Plt Count (150 - 400 x10 3/uL) 272 MPV (7.0 - 9.0 fL) 11.0 H Neut % (Auto) (56.0 - 77.0 %) 80.2 H Lymph % (Auto) (14.0 - 32.0 %) 5.1 L Barron % (Auto) (4.8 - 9.0 %) 9.4 H Eos % (Auto) (0.3 - 3.7 %) 1.5 Baso % (Auto) (0.0 - 2.0 %) 0.4 Neut # (Auto) (2.0 - 7.6 x10 3/uL) 7.28 Lymph # (Auto) (1.0 - 3.8 x10 3/uL) 0.46 L Barron # (Auto) (0.1 - 0.8 x10 3/uL) 0.85 H Eos # (Auto) (0.0 - 0.2 x10 3/uL) 0.14 Baso # (Auto) (0.0 - 0.2 x10 3/uL) 0.04 Abs Immat Gran (auto) (0.00 - 0.03 x10 3/uL) 0. 31 H Add Manual Diff NO Immature Gran % (0.0 - 2.0 %) 3.4 H Nucleated RBC % (0 - 0 %) 1.5 H Nucleated RBCs # (Man) (0.0 - 0.1 x10 3/uL) 0.1 4 H Laboratory Tests 01/02 0400 Chemistry Magnesium (1.80 - 2.40 mg/dL) 2.02 Radiology data: Recent Impressions: RADIOLOGY - XR CHEST 1 V 01/02 0531 Report Impression - Status: SIGNED Entered: 01/02/2022 0801 IMPRESSION: No acute findings. Unchanged study. Impression By: [id number] - Enrico Wang Results: labs reviewed, vital signs reviewed, [facility] personally rev'd Diagnosis, Assessment Plan Plan discussed with: patient, daughter Free Text DxA P Notes Free Text DxA P Notes: Ms Giles is a 76 y/o Femal w / PMHx: CAD, HLD, T2DM, RONA (CPAP at home), smoker, Crohn's disease, AF s/p ablation (on Xarelto), s /p PPM and lymphedema. Dr. Fortune is consulted for CAD s/p CABG, MVR. 1. CAD s/p CABG, MVR, and ILAA. post-op per CTS and critical care On Plavix, aspirin, beta-delma, statin volume management per Nephrology negative fluid balance 2. Chronic AF s/p PPM/ablation. had ILAA during bypass no need for AC 3. Hypertension continue metoprolol tartrate to 25 mg BID 4. Hyperlipidemia Continue statins. 5. Crohn's disease. Per IM. 6. MARCELLO - resolving per Nephrology 7. Resp insufficiency BiPAP as needed on Nasal cannula Slowly improving 8. Acute on chronic diastolic CHF/volume overloa d diuretic management per nephrology/CTS Slowly improving continue supportive care PT/OT as tolerated at 1450 Electronically Signed by Aruna Fortune MD on at 1858 RPT #:[id number] END OF REPORT 2022-01-02 11:45:00-00:00 [facility]L [facility] Hospitalist Discharge Summary REPORT#:[id number] REPORT STATUS: Signed DATE:01/02/22 TIME: 1145 PATIENT: SAÚL GILES UNIT #: [id number] ROOM/BED: [place] [address] : 43 AGE: 76 SEX: F ATTEND: Leah More MD ADM AUTHOR: Meryl Rosa MD * ALL edits or amendments must be made on the [employer]/computer document * General Information Date of admission: Observation Start Date: Date of admission: 12/17/21 Discharge date: 01/02/22 Admission diagnosis: CAD -- multiple vesssels HTN DM HLD Crohn's disease chronic atrial fibrillation status post 3 ablati ons macular degeneration obesity obstructive sleep apnea acute respiratory failure --post surgery severe mitral valve regurgitation constrictive pericarditis Discharge diagnosis: CAD -- multiple vesssels HTN DM HLD Crohn's disease chronic atrial fibrillation status post 3 ablati ons macular degeneration obesity obstructive sleep apnea acute respiratory failure --post surgery severe mitral valve regurgitation constrictive pericarditis Hospital course: CAD -- multiple vesssels HTN DM HLD Crohn's disease chronic atrial fibrillation status post 3 ablati ons macular degeneration obesity obstructive sleep apnea acute respiratory failure --post surgery severe mitral valve regurgitation constrictive pericarditis CAD -- cardiology consult CV surgeon consult CABG -- AM ASA/lipitor afib -- rate control -- hold xarelto for surgery HTN-- continue home med DM-- on lantus -- sliding scale HLD-- on lipitor RONA--cpap as need DVTP -- heparin 12/18- feel sob -- CABG -- afternoon 12/19--post MVR (31 Magna valve), CABG x 1 (ROBERTS- LAD), ILAA and pericardectomy -- she remain intubated on the vent -- chest tube are in place -on levophed and epinephrine drip -- monitor in CCU 12/20- she was extubated --on bipap now -- NPO --off Levophed/epinephrine, continue vasopressi n, inotropes with milrinone, -- chest tube remain in place -- she is stable post surgery 12/21-- she is on high flow O2 -- edema --lasix --chest tube in place --- she is hemodynamic stable -- continue monitor in CCU 12/22- she remain on high O2 CXR show worsening pulmonary venous vascular co ngestion. --lasix iv tid -- chest tube are out -- off drips -- NPO -- start TPN -- continue monitor in CCU 12/23- she remain on high flow O2 --less edema -- on TPN -- she is hemodynamic stable -- continue monitor in CVICU 12/24- she get better -- she is out bed and sit on the chair -- start ambulate with PT -- continue current management 12/25- she is doing well with PT remain on o2 continue iv lasix / add diamox continue supportive care continue monitor in CVICU 12/26- she is on bipap -- she remain sob and edema -- may start lasix drip as nurse -- continue supportive care 12/27 On lasix and insulin drips. Back on lantus dose BID, trend glucose. Continue PT/OT. 12/28 Increase lantus BID. 12/29-- she remain on bipap -- sob and edema --lasiv and diamox iv bid -- FS -- better control -- continue monitor in CVICU 12/30- she improve --less sob and edema -- she tolerance diet -- continue lasix -- continue PT/OT 12/31-- less sob and edema - -- ABG -- review -- improve -- continue lasix -- CM --LTAC evaluation 01/01- she improve now --she is on O2 -- NC 2 --lasix 40 mg iv qd -- continue PT/OT -- rehab placement as rehab she is stable to discharge to inpatient rehab [facility] . Consultants: cardiology, cardiovascular surgery, critical/hired help Free Text DxA P Notes Free text DxA P notes: 76 years old female with PMH of macular degeneration, obesity, obstructive sleep apnea (CPAP at home), former smoker, hypertensio n, hyperlipidemia, diabetes, Crohn's disease, chronic atr ial fibrillation status post 3 ablations in the past (on Xarelto), pacemaker placement CAD -- multiple vesssels HTN DM HLD Crohn's disease chronic atrial fibrillation status post 3 ablati ons macular degeneration obesity obstructive sleep apnea acute respiratory failure --post surgery severe mitral valve regurgitation constrictive pericarditis CAD -- cardiology consult CV surgeon consult CABG -- AM ASA/lipitor afib -- rate control -- hold xarelto for surgery HTN-- continue home med DM-- on lantus -- sliding scale HLD-- on lipitor RONA--cpap as need DVTP -- heparin 12/18- feel sob -- CABG -- afternoon 12/19--post MVR (31 Magna valve), CABG x 1 (ROBERTS- LAD), ILAA and pericardectomy -- she remain intubated on the vent -- chest tube are in place -on levophed and epinephrine drip -- monitor in CCU 12/20- she was extubated --on bipap now -- NPO --off Levophed/epinephrine, continue vasopressi n, inotropes with milrinone, -- chest tube remain in place -- she is stable post surgery 12/21-- she is on high flow O2 -- edema --lasix --chest tube in place --- she is hemodynamic stable -- continue monitor in CCU 12/22- she remain on high O2 CXR show worsening pulmonary venous vascular co ngestion. --lasix iv tid -- chest tube are out -- off drips -- NPO -- start TPN -- continue monitor in CCU 12/23- she remain on high flow O2 --less edema -- on TPN -- she is hemodynamic stable -- continue monitor in CVICU 12/24- she get better -- she is out bed and sit on the chair -- start ambulate with PT -- continue current management 12/25- she is doing well with PT remain on o2 continue iv lasix / add diamox continue supportive care continue monitor in CVICU 12/26- she is on bipap -- she remain sob and edema -- may start lasix drip as nurse -- continue supportive care 12/27 On lasix and insulin drips. Back on lantus dose BID, trend glucose. Continue PT/OT. 12/28 Increase lantus BID. 12/29-- she remain on bipap -- sob and edema --lasiv and diamox iv bid -- FS -- better control -- continue monitor in CVICU 12/30- she improve --less sob and edema -- she tolerance diet -- continue lasix -- continue PT/OT 12/31-- less sob and edema - -- ABG -- review -- improve -- continue lasix -- CM --LTAC evaluation 01/01- she improve now --she is on O2 -- NC 2 --lasix 40 mg iv qd -- continue PT/OT -- rehab placement as rehab Med Rec Med Rec Discharge meds: Stop taking the following medications: FUROSEMIDE (LASIX) 20 MG TAB 10 MILLIGRAM ORAL DAILY. METOLAZONE (ZAROXOLYN) 10 MG TAB 10 MILLIGRAM ORAL DAILY. Continue taking these medications: RIVAROXABAN (XARELTO) 20 MG TAB 20 MILLIGRAM ORAL DAILY. amLODIPine (NORVASC) 5 MG TAB 5 MILLIGRAM ORAL DAILY. cloNIDine (CATAPRES) 0.3 MG TAB 0.3 MILLIGRAM ORAL TWICE DAILY. DOXAZOSIN (CARDURA) 4 MG TAB LISINOPRIL (ZESTRIL) 40 MG TAB OLMESARTAN (BENICAR) 40 MG TAB 40 MILLIGRAM ORAL DAILY. PRAVASTATIN (PRAVACHOL) 10 MG TAB POTASSIUM CHLORIDE ER (MICRO-K) 10 MEQ CAP.SA 10 MILLIEQUIVALENT ORAL DAILY. OMEPRAZOLE ER (OMEPRAZOLE ER) 20 MG CAP.DR 20 MILLIGRAM ORAL DAILY. GLIMEPIRIDE (AMARYL) 4 MG TAB 4 MILLIGRAM ORAL DAILY. INSULIN DETEMIR (LEVEMIR FlexTouch (15mL)) 100 U NIT/ML (3 ML) PEN.INJCTR 50 UNITS SUBCUTANEOUS TWICE DAILY. INSULIN LISPRO (HumaLOG CARTRIDGE (15mL)) 100 UN IT/ML CARTRIDGE 0 UNITS SUBCUTANEOUS THREE TIMES A DAY. Instructions: per sliding scale LIRAGLUTIDE (VICTOZA (6mL)) 0.6 MG/0.1 ML (18 MG /3 ML) PEN.INJCTR 1.8 MILLIGRAM SUBCUTANEOUS DAILY. metFORMIN (GLUCOPHAGE) 1,000 MG TAB 1,000 MILLIGRAM ORAL TWICE DAILY. Instructions: TAKE WITH MEALS ADALIMUMAB + SUPPLIES (HUMIRA PREFILLED PEN) 40 MG/0.8 ML KIT 40 MILLIGRAM SUBCUTANEOUS EVERY 14 DAYS. azaTHIOprine (IMURAN) 50 MG TAB 50 MILLIGRAM ORAL DAILY. Start taking the following new medications: IPRATROPIUM/ALBUTEROL (DUONEB 0.5 MG-3/3 ML) 0.5 MG-3 MG (2.5 MG BASE)/3 ML NEB 3 MILLILITERS NEB RT - EVERY 6 HOURS. Qty = 60 No Refills CLOPIDOGREL (PLAVIX) 75 MG TAB 75 MILLIGRAM ORAL DAILY. Qty = 30 No Refills FERROUS SULFATE (FEOSOL) 325 MG (65 MG IRON) TAB 325 MILLIGRAM ORAL DAILY. Qty = 30 No Refills AMIODARONE (PACERONE) 200 MG TAB 200 MILLIGRAM ORAL TWICE DAILY. Qty = 60 No Refills ATORVASTATIN (LIPITOR) 40 MG TAB 40 MILLIGRAM ORAL 2100 Qty = 30 No Refills METOPROLOL TARTRATE (LOPRESSOR) 25 MG TAB 25 MILLIGRAM ORAL EVERY 12 HOURS. Qty = 30 No Refills ASPIRIN (ASPIRIN) 81 MG TAB.CHEW 81 MILLIGRAM ORAL DAILY. Qty = 30 No Refills FUROSEMIDE (LASIX) 40 MG TAB 40 MILLIGRAM ORAL TWICE DAILY AT 9AM 4PM. Qty = 30 No Refills Objective VS/I O Last Documented: Result Date Time Pulse Ox 99 01/02 1300 Pulse 72 01/02 1300 Resp 25 01/02 1300 B/P 148/83 01/02 1000 B/P Mean 108 01/02 1000 O2 Delivery Nasal cannula 10/21 0915 O2 Flow Rate 3 01/02 09 FiO2 40 01/02 0000 Temp 36.6 01/02 0000 24 hour I O ending at 0700: 01/02 0700 01/01 1900 Intake Total 1260 Output Total 1500 Balance -240 Intake, Oral 1260 Number 2 Incontinent Voids Number Voids 2 Output, Urine 1500 Patient 120.1 kg Weight Weight Standing scale Measurement Method General appearance: alert, awake, oriented Head/Eyes: atraumatic, normal conjunctiva/sclera , normal eyelids/periorb., normocephalic Neck: full range of motion, non-tender, no JVD Cardiovascular: normal heart sounds, regular rat e rhythm Respiratory: decreased breath sounds, clear to a uscultation Abdomen: non-tender, normal bowel sounds, soft, no distention Extremities: edema, moves all, no calf tendernes s 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, 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 Skin: dry, intact Results Findings/Data: Laboratory Tests: 01/02 01/02 01/02 01/02 1214 0900 0415 0400 Blood Gas Puncture Site Art Line O2 Saturation (90 - 100 %) 96.7 ABG pH (7.35 - 7.45) 7.351 ABG pCO2 (35.0 - 45 mmHg) 69.0 *H ABG pO2 (80 - 100.0 mmHg) 94.8 ABG HCO3 (22.0 - 26.0 MMOL/L) 38.4 *H ABG Total CO2 40.5 ABG Base Excess (-4.0 - 4.0 MMOL/L) 12.7 H ABG Hematocrit (33.0 - 45.0 %) 27 L ABG Hemoglobin (11.0 - 15.0 G/DL) 9.3 L Martin Test N/A Sodium (134 - 147 MEQ/L) 143 Potassium (3.4 - 5.0 MEQ/L) 3.3 L Chloride (100 - 108 MEQ/L) 96 L Ionized Calcium (1.12 - 1.32 MMOL/L) 1.35 H Lactic Acid (0.9 - 1.7 mmol/l) 0.6 L Temperature (F) 98 O2 Delivery Device Cannula Chemistry Sodium (134 - 147 mEq/L) 143 Potassium (3.4 - 5.0 mEq/L) 3.4 Chloride (100 - 108 mEq/L) 100 Carbon Dioxide (21 - 33 mEq/l) 37 H Anion Gap (0 - 20) 9 BUN (7 - 18 mg/dL) 29 H Creatinine (0.6 - 1.3 mg/dL) 1.0 POC Creatinine (0.6 - 1.0 mg/dL) 1.2 H Glomerular Filtr Rate (70 - 80) 53.6 L Glucose (70 - 110 mg/dL) 146 H POC Glucose (70 - 110 MG/DL) 190 H 207 H POC Glucose (mg/dL) (70 - 110 MG/DL) 157 H Calcium (8.0 - 10.5 mg/dL) 9.8 Magnesium (1.80 - 2.40 mg/dL) 2.02 Hematology WBC (4.5 - 11.0 x10 3/uL) 9.1 RBC (3.54 - 5.02 x10 6/uL) 2.32 L Hgb (11.0 - 15.0 g/dL) 8.1 L Hct (33.0 - 45.0 %) 25.6 L MCV (81.0 - 99.0 fL) 110.3 H MCH (27.0 - 33.0 pg) 34.9 H MCHC (33.0 - 37.0 g/dL) 31.6 L RDW (11.5 - 14.5 %) 17.3 H Plt Count (150 - 400 x10 3/uL) 272 MPV (7.0 - 9.0 fL) 11.0 H Neut % (Auto) (56.0 - 77.0 %) 80.2 H Lymph % (Auto) (14.0 - 32.0 %) 5.1 L Barron % (Auto) (4.8 - 9.0 %) 9.4 H Eos % (Auto) (0.3 - 3.7 %) 1.5 Baso % (Auto) (0.0 - 2.0 %) 0.4 Neut # (Auto) (2.0 - 7.6 x10 3/uL) 7.28 Lymph # (Auto) (1.0 - 3.8 x10 3/uL) 0.46 L Barron # (Auto) (0.1 - 0.8 x10 3/uL) 0.85 H Eos # (Auto) (0.0 - 0.2 x10 3/uL) 0.14 Baso # (Auto) (0.0 - 0.2 x10 3/uL) 0.04 Abs Immat Gran (auto) (0.00 - 0.03 x10 3/uL) 0. 31 H Add Manual Diff NO Immature Gran % (0.0 - 2.0 %) 3.4 H Nucleated RBC % (0 - 0 %) 1.5 H Nucleated RBCs # (Man) (0.0 - 0.1 x10 3/uL) 0.1 4 H 01/01 01/01 2137 1809 Chemistry POC Glucose (70 - 110 MG/DL) 196 H 218 H Radiology data: Recent Impressions: RADIOLOGY - XR CHEST 1 V 01/02 0531 Report Impression - Status: SIGNED Entered: 01/02/2022 0801 IMPRESSION: No acute findings. Unchanged study. Impression By: [id number] - Enrico Wang Discharge Instructions PCP Discharge to: Inpatient Rehab Facility Additional Discharge Routines: Attending Follow- Up Diet: Cardiac Activity: As Tolerated Follow-up Appointments Attending Physician: Attending Physician: Jeffry More MD Quality: Discharge Current Medications Current medication review: Home Medications: RIVAROXABAN (XARELTO) 20 MG PO DAILY amLODIPine (NORVASC) 5 MG PO DAILY cloNIDine (CATAPRES) 0.3 MG PO BID DOXAZOSIN (CARDURA) LISINOPRIL (ZESTRIL) OLMESARTAN (BENICAR) 40 MG PO DAILY PRAVASTATIN (PRAVACHOL) FUROSEMIDE (LASIX) 10 MG PO DAILY METOLAZONE (ZAROXOLYN) 10 MG PO DAILY POTASSIUM CHLORIDE ER (MICRO-K) 10 MEQ PO DAILY OMEPRAZOLE ER 20 MG PO DAILY GLIMEPIRIDE (AMARYL) 4 MG PO DAILY INSULIN DETEMIR (LEVEMIR FlexTouch (15mL)) 50 UN ITS SUBQ BID INSULIN LISPRO (HumaLOG CARTRIDGE (15mL)) 0 UNIT S SUBQ TID LIRAGLUTIDE (VICTOZA (6mL)) 1.8 MG SUBQ DAILY metFORMIN (GLUCOPHAGE) 1,000 MG PO BID ADALIMUMAB + SUPPLIES (HUMIRA PREFILLED PEN) 40 MG SUBQ Q14D azaTHIOprine (IMURAN) 50 MG PO DAILY I attest that the foregoing medication list in t medical record is true, accurate, and complete to the best of my knowled ge. Electronically Signed by Meryl Rosa MD on 2 at 1412 RPT #:[id number] END OF REPORT 2022-01-02 09:16:00-00:[address] [facility] ([facility]) Critical Care Progress Note REPORT#:[id number] REPORT STATUS: Signed DATE:01/02/22 TIME: 915 PATIENT: SAÚL GILES UNIT #: [id number] ROOM/BED: [place] [address] : 43 AGE: 76 SEX: F ATTEND: Leah More MD ADM AUTHOR: Kenton Gonzalez MD * ALL edits or amendments must be made on the [employer]/computer document * Subjective Chief complaint: S/P CABG/MVR COPD Volume overload Obesity hypoventilation syndrome on NIPPV Chronic respiratory acidosis and hypercapnia HPI: Patient seen and discussed during MDR th is morning in CVICU room #2205. She is status post CABG. Patient has been existing diag nosis of COPD and obesity related hypoventilation syndrome. She was on BiP AP at night. Patient is being diuresed with Lasix. Ambulating with [facility]. Vital signs are stable with a heart rate of 72 in s inus rhythm, blood pressure 148/83 mmHg, pulse ox 88 % while on nasal cannula oxygen and respiratory rate of 23. Her latest blood gas shows a pH of 7.35, pCO2 of 69 mmHg, pO2 of 94 mmHg and bicarbonate of 38 mmol with base excess at 12. 7. Hemoglobin is 8.1 g/dL and creatinine is 1.0 mg/ dL. Patient has chronic respiratory acidosis wit h baseline hypercapnia. He is awake, interactive, following commands and movin g all 4 extremities. Brenda Giles is a 76-year-old morbidly obese fem leighann with history of HTN, HL, IDDM, smoking, RONA on CPAP a nd home O2 as needed, macular degeneration, Crohn's disease on immunosuppressant medications, and chronic Afib s/p ablation and PPM (on Xarelto), who was admitted recently with hea rt failure symptoms. Patient underwent elective cardiac cath that ingrid wed severe multivessel coronary artery disease not suitable for percutaneous in tervention. 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 She went for surgical revascularization today and preop JORDEN revealed severe mitral regurgitation. After discussing new findings with family, patient underwent MVR (31 M agna valve), CABG x 1 (ROBERTS-LAD), ILAA and pericardectomy on 12/19/2021. Has EF of 45%. Crystalloid 1 L, urine output 700, Cell Saver 700. She is a-paced at [employer]. Surgery went well and patient was transferred to CVICU pos top in a stable surgical condition. She is currently intubated on 2 mics of epine phrine, 2 mics of Levophed and insulin drip. CI 3.0, SvO2 in 60%s, CVP 15 and PAP in 60s. Patient was extubated in a timely fashion. She will be transferred out of the CVICU to [facility] today. Patient reports: Yes: shortness of breath. No: diarrhea, fever, h eadache, vomiting. Nursing reports: Yes: shortness of breath. No: diarrhea, fever, v omiting. Review of Systems Constitutional: Denies: fever, lethargy, malaise. Skin: Denies: diaphoresis, ecchymosis, rash, swelling. Allergy/Immun: Denies: anaphylaxis, hives. Eyes: Denies: redness, discharge, visual loss/blurred. ENT: Denies: nose bleeding, throat swelling, tongue s welling. Respiratory: Denies: DOUGLASS (dyspnea on exertion), hemoptysis, n on productive cough, SOB, wheezing. Cardiovascular: Denies: DOUGLASS (dyspnea on exertion), edema. GI: Denies: hematemesis, hematochezia, hiatal hernia , melena. : Denies: hematuria, nocturia. Heme: Denies: bleeding, bruising. Endocrine: Denies: polydipsia, polyphagia. Neuro: Denies: confusion, dizziness, numbness, seizure. Psych: Denies: agitation, anxiety, homicidal ideation, hostile, insomnia. Objective General VS/I O Last Documented: Result Date Time B/P 119/54 01/02 723 B/P Mean 78 01/02 07 Pulse 74 01/02 723 Pulse Ox 94 01/02 0500 Resp 20 01/02 0500 O2 Delivery Nasal cannula 01/02 040 O2 Flow Rate 5 01/02 040 FiO2 40 01/02 0000 Temp 36.6 01/02 0000 24 hour I O ending at 0700: 01/02 0700 01/01 1900 Intake Total 1260 Output Total 1500 Balance -240 Intake, Oral 1260 Number 2 Incontinent Voids Number Voids 2 Output, Urine 1500 Patient 120.1 kg Weight Weight Standing scale Measurement Method PATIENT WEIGHT: Weight (lb): 264 Weight (oz): 12.4 Weight (kg): 120.100 Medications: Active Meds + DC'd Last 24 Hrs Metoprolol Tartrate (LOPRESSOR) 25 MG Q12HR PO Acetazolamide (DIAMOX) 500 MG Q24H IV Furosemide (LASIX 40 mg/4 mL INJECTION) 40 MG DA EMELIA IV Sterile Water (WATER FOR INJECTION) 5 ML ASDIR P RN IV Potassium Chloride (POTASSIUM CHLORIDE 20MEQ TAB .ER) 40 MEQ DAILY PRN PRN PO Insulin Glargine (Lantus/Semglee) 30 UNIT DAILY SUBQ Insulin Glargine (Lantus/Semglee) 20 UNIT BEDTIM E SUBQ Insulin Human Lispro (HUMALOG) 0 AC HS SUBQ Dextrose/Water (DEXTROSE 10% IN WATER) 125 ML DIR PRN IV (CKD) Dextrose/Water (DEXTROSE 10% IN WATER) 250 ML DIR PRN IV (CKD) Glucagon (GLUCAGON) 1 MG ASDIR PRN IM Amiodarone HCl (CORDARONE) 200 MG BID PO Sterile Water (WATER FOR INJECTION) 5 ML ASDIR P RN IV Sterile Water (WATER FOR INJECTION) 5 ML ASDIR P RN IV Sodium Chloride (SODIUM CHLORIDE) 4 ML RTBID NEB Melatonin (Melatonin) 3 MG BEDTIME PO Sodium Chloride (SODIUM CHLORIDE) 10 ML BID IV Sodium Chloride (SODIUM CHLORIDE) 10 ML ASDIR NE N IV Pantoprazole (PROTONIX) 40 MG DAILY PO Dexmedetomidine/Sodium Chloride (PRECEDEX 1000MC G/NS 250ML) 250 ML ASDIR IV Bisacodyl (DULCOLAX) 10 MG DAILY PRN PRN RECTAL Lactulose (LACTULOSE) 20 GM DAILY PRN PRN PO Magnesium Hydroxide (MILK OF MAGNESIA) 30 ML PETER LY PRN PRN PO Aspirin (ASPIRIN) 81 MG DAILY PO Clopidogrel Bisulfate (Plavix) 75 MG DAILY PO Cyanocobalamin (Vitamin B-12 500 mcg tab) 500 MC G DAILY PO Ferrous Sulfate (FERROUS SULFATE) 325 MG DAILY P O Metolazone (metOLazone) 5 MG DAILY PO Polyethylene Glycol (MIRALAX) 17 GM DAILY PO Atorvastatin Calcium (LIPITOR) 40 MG 2100 PO Docusate Sodium (DOCUSATE SODIUM) 100 MG BID PO Metoprolol Tartrate (LOPRESSOR) 12.5 MG Q12HR PO (DC) Senna (SENOKOT) 17.6 MG BEDTIME PO Acetaminophen (TYLENOL) 650 MG Q4H PRN PRN PO Acetylcysteine (MUCOMYST FOR RT) 200 MG RTQ6H NE B Albuterol/Ipratropium (DUONEB) 3 ML RTQ6H NEB Bisacodyl (DULCOLAX) 10 MG ONCE PRN RECTAL Dopamine HCl/Dextrose (DOPamine 400MG/D5W 250ML) 250 ML ASDIR IV Milrinone Lactate/Dextrose (MILRINONE 20MG/D5W 1 00ML) 100 ML ASDIR IV ( CKD) Vasopressin (VASOSTRICT 20 Unit/NS 100ML) 100 ML ASDIR IV (CKD) Acetaminophen (TYLENOL) 650 MG Q4H PRN PRN RECTA L Calcium Chloride (CALCIUM CHLORIDE) 1 GM ASDIR P RN IV Magnesium Sulfate (MAGNESIUM SULFATE 4GM/SWFI 10 0ML) 100 ML ASDIR PRN IV Magnesium Sulfate (MAGNESIUM SULFATE 2GM/SWFI 50 ML) 50 ML ASDIR PRN IV Magnesium Sulfate/Dextrose (MAGNESIUM SULFATE 1G M/D5W 100ML) 100 ML ASDIR PRN IV Nitroglycerin/Dextrose (NITROGLYCERIN 50,000MCG/ D5W 250ML) 250 ML ASDIR IV Norepinephrine Bitartrate (NOREPINEPHRINE 8 MG/N S 250 ML) 250 ML TITRATE IV Potassium Chloride (KCL 20MEQ/SWFI 100ML) 100 ML ASDIR PRN IV Sodium Bicarbonate (SODIUM BICARBONATE) 50 MEQ A SDIR PRN IV Ondansetron HCl (ZOFRAN) 4 MG Q6H PRN PRN IV Status post: CABG Physical Exam General appearance: alert, awake, oriented, no a cute distress, pleasant, conversational, mental status normal, no respira tory distress Head/eyes: atraumatic, clear cornea, normocephal ic, PERRL ENT: moist mucosal membranes, normal nose, ramirez l sinus Neck: non-tender, normal thyroid, no JVD, no mas ses or swelling Cardiovascular: normal heart sounds, regular rat e and rhythm, normal S1/S2 Respiratory: decreased breath sounds, aerating w ell, symmetric expansion, no distress Abdomen: obese, soft, no distention, no guarding , no mass/organomegaly, no rebound Extremities: no clubbing, no cyanosis, no edema 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, 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, CNII-XII intact, normal speech, no motor deficits Skin: dry, normal color, normal temperature, no rash Psychiatry: normal affect, n ormal judgment/insight, normal mood, not homicidal, not suicidal, no hallucinations Results Findings/data: Laboratory Tests 01/02 0415 Blood Gas Puncture Site Art Line O2 Saturation (90 - 100 %) 96.7 ABG pH (7.35 - 7.45) 7.351 ABG pCO2 (35.0 - 45 mmHg) 69.0 *H ABG pO2 (80 - 100.0 mmHg) 94.8 ABG HCO3 (22.0 - 26.0 MMOL/L) 38.4 *H ABG Total CO2 40.5 ABG Base Excess (-4.0 - 4.0 MMOL/L) 12.7 H ABG Hematocrit (33.0 - 45.0 %) 27 L ABG Hemoglobin (11.0 - 15.0 G/DL) 9.3 L Martin Test N/A Sodium (134 - 147 MEQ/L) 143 Potassium (3.4 - 5.0 MEQ/L) 3.3 L Chloride (100 - 108 MEQ/L) 96 L Ionized Calcium (1.12 - 1.32 MMOL/L) 1.35 H Lactic Acid (0.9 - 1.7 mmol/l) 0.6 L Temperature (F) 98 O2 Delivery Device Cannula Laboratory Tests 01/02 01/02 01/02 01/01 01/01 0900 0415 0400 5157 1809 Chemistry Sodium (134 - 147 mEq/L) 143 Potassium (3.4 - 5.0 mEq/L) 3.4 Chloride (100 - 108 mEq/L) 100 Carbon Dioxide (21 - 33 mEq/l) 37 H Anion Gap (0 - 20) 9 BUN (7 - 18 mg/dL) 29 H Creatinine (0.6 - 1.3 mg/dL) 1.0 POC Creatinine (0.6 - 1.0 mg/dL) 1.2 H Glomerular Filtr Rate (70 - 80) 53.6 L Glucose (70 - 110 mg/dL) 146 H POC Glucose (70 - 110 MG/DL) 207 H 196 H 218 H POC Glucose (mg/dL) (70 - 110 MG/DL) 157 H Calcium (8.0 - 10.5 mg/dL) 9.8 Magnesium (1.80 - 2.40 mg/dL) 2.02 01/01 1212 Chemistry POC Glucose (70 - 110 MG/DL) 191 H Laboratory Tests 01/02 0400 Hematology WBC (4.5 - 11.0 x10 3/uL) 9.1 RBC (3.54 - 5.02 x10 6/uL) 2.32 L Hgb (11.0 - 15.0 g/dL) 8.1 L Hct (33.0 - 45.0 %) 25.6 L MCV (81.0 - 99.0 fL) 110.3 H MCH (27.0 - 33.0 pg) 34.9 H MCHC (33.0 - 37.0 g/dL) 31.6 L RDW (11.5 - 14.5 %) 17.3 H Plt Count (150 - 400 x10 3/uL) 272 MPV (7.0 - 9.0 fL) 11.0 H Neut % (Auto) (56.0 - 77.0 %) 80.2 H Lymph % (Auto) (14.0 - 32.0 %) 5.1 L Barron % (Auto) (4.8 - 9.0 %) 9.4 H Eos % (Auto) (0.3 - 3.7 %) 1.5 Baso % (Auto) (0.0 - 2.0 %) 0.4 Neut # (Auto) (2.0 - 7.6 x10 3/uL) 7.28 Lymph # (Auto) (1.0 - 3.8 x10 3/uL) 0.46 L Barron # (Auto) (0.1 - 0.8 x10 3/uL) 0.85 H Eos # (Auto) (0.0 - 0.2 x10 3/uL) 0.14 Baso # (Auto) (0.0 - 0.2 x10 3/uL) 0.04 Abs Immat Gran (auto) (0.00 - 0.03 x10 3/uL) 0. 31 H Add Manual Diff NO Immature Gran % (0.0 - 2.0 %) 3.4 H Nucleated RBC % (0 - 0 %) 1.5 H Nucleated RBCs # (Man) (0.0 - 0.1 x10 3/uL) 0.1 4 H Laboratory Tests 01/02/22 0400: [Embedded Image Not Available] Radiology data Recent Impressions: RADIOLOGY - XR CHEST 1 V 01/02 0531 Report Impression - Status: SIGNED Entered: 01/02/2022 0801 IMPRESSION: No acute findings. Unchanged study. Impression By: [id number] Enrico Chong Results: labs reviewed, vital signs revi ewed, rhythm personally rev'd, current med profile rev'd Free Text Obj Notes Free Text Obj Notes: General appearance: elderly female in no acute d istress, interactive HEENT: atraumatic, normocephalic, moist mucosal membranes Neck: full range of motion, supple with no menin gismus Cardiovascular: S1S2 regular rate and rhythm, pa freddy Respiratory: symmetric expansion, no acute respi ratory distress Abdomen: soft, obese, non-tender, no distention, no guarding Genitourinary: [place] with clear urine Extremities: pedal pulses palpable, moves all, n o clubbing, no cyanosis, BLE edema Musculoskeletal: normal inspection, no muscle sp asm 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: Alert and oriented x3, CNII-XII gross ly intact, no motor deficits Skin: dry, intact and clean surgery site Treatment Prophylaxis Treatment Prophylaxis Drain(s)/tube(s): Drain(s)/tube(s): chest (x3) Diagnosis, Assessment Plan Free text A P: Problem List: S/P CABG/MVR COPD Volume overload Obesity hypoventilation syndrome Chronic respiratory acidosis and hypercapnia Acute blood loss anemia Assessment and Plan: Saúl Giles is a 76-year-old morbidly obese fe male with history of HTN, HL, IDDM, smoking, RONA on CPAP a nd home O2 as needed, macular degeneration, Crohn's disease on immunosuppressant medications, and chronic Afib s/p ablation and PPM (on Xarelto), who was admitted recently with hea rt failure symptoms. Patient underwent elective cardiac cath that ingrid wed severe multivessel coronary artery disease not suitable for percutaneous in tervention. 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 She went for surgical revascularization today and preop JORDEN revealed severe mitral regurgitation. After discussing new findings with family, patient underwent MVR (31 M agna valve), CABG x 1 (ROBERTS-LAD), ILAA and pericardectomy on 12/19/2021. Has EF of 45%. Crystalloid 1 L, urine output 700, Cell Saver 700. She is a-paced at [employer]. Surgery went well and patient was transferred to CVICU pos top in a stable surgical condition. She is currently intubated on 2 mics of epine phrine, 2 mics of Levophed and insulin drip. CI 3.0, SvO2 in 60%s, CVP 15 and PAP in 60s. Remains neuro intact, multimodal pain control, a void opiates Patient is on BiPAP at night for underlying RONA home CPAP as needed 14-18. She is on nasal cannula [address] shows worsening pulmonary edema and a telectasis. Also has pleural effusions ultrasound not a big pocket to safely tap. Duo nebs and Mucomyst. Encourage incentive laz metry. Family at bedside during spirometry with her. Patient is being diuresed with Lasix twice daily and Diamox twice daily. She does have respiratory acidos is with metabolic alkalosis which is balanced with a pH of 7.39. Renal following White count is stable. No signs of infection or fever. Continue to monitor. Hemoglobin is stable. Continue beta-delma and amiodarone. Paced rhyt Patient is on insulin drip for control of her quintana gars. Increase Lantus to 30 twice daily. Patient still has [place] for accurate ins and out s Total critical care time 40 minutes 12/29 Waxing and waning mental status, continue melato andrzej at bedtime Continue supplemental oxygen and titrate FiO2 to keep saturation more than 90%, on 6 L nasal cannula, alternating with BiPAP 18/ 7 and 30% Continue follow ABGs and chest x-rays Inhaled bronchodilators as needed Encourage incentive spirometry White count is stable. No signs of infection or fever. Continue to monitor. Hemoglobin is stable. Continue beta-delma and amiodarone. Diuresis with Bumex 500 mg every 12 hours. Recei laury 1 dose of Lasix IV x1 earlier in the morning Monitor kidney function and trend creatinine Monitor and replete electrolytes Strict I O's Cardiac diet with bowel regimen Decreased Lantus insulin to 20 5 in the morning and 20 at night Continue monitoring blood glucose VTE prophylaxis Stress ulcer prophylaxis Discussed with ICU team, CV surgery and daughter Critical care time 39 minutes 12/30 Neuro status appears at base line, avoid narcotics and sedatives, monitor for CO2 narcosis Sats well on HFNC, wean O2 for goal sats in high 80s, obtain ABG as needed, BiPAP use for uncompensated hypercapnia, CXR and CT chest reviewed Blood pressures appear controlled, continue card iac medications Creatinine appears stable, continue diuresis, mo nitor urine output Tolerating oral diet, has BM/BR, replete hypokal emia No fevers or leukocytosis, completed antibiotic course for UTI Hemoglobin low but stable, no evidence of active bleed Blood glucose control with SSI and Lantus Encourage PT/OT and out of bed as tolerated, vicki n for IPR DVT and GI prophylaxis with DAPT and PPI 12/31 Neuro intact, avoid narcotics and sedatives, mon itor for CO2 narcosis Sats drops on RA, keep NC for goal sats in high 80s, ABG and BiPAP as needed, CXR reviewed Blood pressures appear controlled, continue card iac medications, on BB, amiodarone and statin Creatinine remains stable, good urine output, co ntinue diuresis per renal Tolerating oral diet, bowel regimen, nutrition s upport, replete hypokalemia No fevers or leukocytosis, completed antibiotic course for UTI Hemoglobin appears stable, no evidence of active bleed Blood glucose control with SSI and Lantus Encourage PT/OT and out of bed as tolerated, vicki n for IPR DVT and GI prophylaxis with DAPT and PPI 01/01 remains neuro intact, avoid narcotics and sedati ves, monitor for CO2 narcosis Sats well on NC, on home O2, goal sats i n high 80s, has chronic CO2 retention, use BiPAP as needed, remove art line, ABG and CX R reviewed BP fairly controlled, adjust anti-HTN medication s, increase BB dose Creatinine remains stable, good urine output, co ntinue diuresis per renal Tolerating oral diet, bowel regimen, replete hyp okalemia and hypomagnesemia No fevers or leukocytosis, treated for UTI, curr ently off Abx Hemoglobin appears stable, no evidence of active bleeding Blood glucose control with SSI and Lantus, will continue Encourage PT/OT and out of bed as tolerated, vicki n for IPR vs SNF DVT and GI prophylaxis with DAPT and PPI 01/02/2022 Patient seen and discussed during [facility] th is morning in CVICU room #2205. She is status post CABG. Patient has been existing diag nosis of COPD and obesity related hypoventilation syndrome. She was on BiP AP at night. Patient is being diuresed with Lasix. Ambulating with physical th erapy. Vital signs are stable with a heart rate of 72 in s inus rhythm, blood pressure 148/83 mmHg, pulse ox 88 % while on nasal cannula oxygen and respiratory rate of 23. Her latest blood gas shows a pH of 7.35, pCO2 of 69 mmHg, pO2 of 94 mmHg and bicarbonate of 38 mmol with base excess at 12. 7. Hemoglobin is 8.1 g/dL and creatinine is 1.0 mg/ dL. Patient has chronic respiratory acidosis wit h baseline hypercapnia. He is awake, interactive, following commands and movin g all 4 extremities. Brenda Giles is a 76-year-old morbidly obese fem leighann with history of HTN, HL, IDDM, smoking, RONA on CPAP a nd home O2 as needed, macular degeneration, Crohn's disease on immunosuppressant medications, and chronic Afib s/p ablation and PPM (on Xarelto), who was admitted recently with hea rt failure symptoms. Patient underwent elective cardiac cath that ingrid wed severe multivessel coronary artery disease not suitable for percutaneous in tervention. 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 She went for surgical revascularization today and preop JORDEN revealed severe mitral regurgitation. After discussing new findings with family, patient underwent MVR (31 M agna valve), CABG x 1 (ROBERTS-LAD), ILAA and pericardectomy on 12/19/2021. Has EF of 45%. Crystalloid 1 L, urine output 700, Cell Saver 700. She is a-paced at [employer]. Surgery went well and patient was transferred to CVICU pos top in a stable surgical condition. She is currently intubated on 2 mics of epine phrine, 2 mics of Levophed and insulin drip. CI 3.0, SvO2 in 60%s, CVP 15 and PAP in 60s. Patient was extubated in a timely fashion. She will be transferred out of the CVICU to CV 1 today. Patient is status post CABG Has pre-existing diagnosis of COPD and OHS Tolerating nocturnal BiPAP Patient has been diuresed with Lasix Chest tube been discontinued Vital signs are stable with a heart rate of 72 a nd blood pressure 148/83 mmHg Baseline hypercapnia with chronic respiratory ac idosis Patient has baseline hypercapnia with current pC O2 of 69 mmHg on ABG and is awake interactive following commands and moving all 4 extremities Allow permissive hypercapnia for chronic respira tory acidosis patient is ambulating with physical therapy Mental status is stable and patient is alert castillo ent x3 Hemoglobin stable at 8.1 g/dL, has acute blood l oss anemia, does not meet transfusion threshold at this time Her latest blood gas 7.35/69/94/38/12.7 Avoid excessive oxygen delivery to prevent hyper capnia from Haldane effect Creatinine is within normal limits Has acute blood loss anemia Hemoglobin stable. Does not meet transfusion thr eshold at this time. Follow CBC SCDs for DVT prophylaxis Kenton Gonzalez MD [facility] 01/02/2022 8.25 PM Consultants: cardiology, cardiovascular surgery, critical/hired help Code status: full code Plan discussed with: nurse, interdisc care team, pharmacy/pharmacist Critical care time: Minutes: 40 Electronically Signed by Kenton Gonzalez MD on 12/14 05/06 at 0843 RPT #:[id number] END OF REPORT 2022-01-02 07:18:00-00:00 [facility] ([facility]) Rehab Progress Note REPORT#:[id number] REPORT STATUS: Signed DATE:01/02/22 TIME: 717 PATIENT: SAÚL GILES UNIT #: [id number] ROOM[facility]BED: [facility] : 43 AGE: 76 SEX: F ATTEND: Leah More MD ADM AUTHOR: Herberth Pantoja * ALL edits or amendments must be made on the [facility]/computer document * Subjective Chief complaint: rehab follow-up NAD Doing fair Significant generalized weakness, fatigue No GOLD/N/V/D 14 systems reviewed and negative except that men tioned above. Objective General VS: Vital Signs: Date Time Temp Pulse Resp B/P B/P Pulse O2 O2 F low FiO2 Mean Ox Delivery Rate 01/02 0403 96 Nasal 5 cannula 01/02 0100 72 135/61 88 01/02 0000 97.8 75 17 137/62 87 98 BiPAP 40 01/02 0000 75 137/62 89 98 01/01 2350 72 100 40 01/01 2300 72 129/60 86 100 01/01 2214 72 100 40 01/01 2200 69 23 117/56 80 100 01/01 2100 72 132/59 85 90 01/01 2013 95 Nasal 3 cannula 01/01 2001 69 21 129/60 87 100 01/02 2000 98.2 01/02 2000 Nasal 5 cannula 01/02 2000 69 21 129/60 83 100 Nasal 3 cannula 01/01 1900 75 23 132/61 88 99 01/01 1600 73 45 142/64 92 01/01 1501 72 31 127/58 84 01/01 1401 75 31 146/65 93 95 01/01 1301 71 24 150/67 97 01/01 1127 73 35 140/63 91 81 01/01 1000 71 27 154/49 84 91 01/01 0900 71 27 152/50 85 01/01 0806 97.9 01/01 0801 70 23 150/54 90 96 01/01 0800 70 28 155/52 89 92 01/01 0800 98 Nasal 3 cannula 01/01 0736 71 26 169/58 100 93 01/01 0730 High flow 5 nasal cannula 01/01 0730 71 27 166/58 98 91 PATIENT WEIGHT: Weight (lb): 264 Weight (oz): 12.4 Weight (kg): 120.100 Medications: Active Meds + DC'd Last 24 Hrs Metoprolol Tartrate (LOPRESSOR) 25 MG Q12HR PO Acetazolamide (DIAMOX) 500 MG Q24H IV Furosemide (LASIX 40 mg/4 mL INJECTION) 40 MG D AILY IV Sterile Water (WATER FOR INJECTION) 5 ML ASDIR P RN IV Furosemide (LASIX 40 mg/4 mL INJECTION) 40 MG Q2 4H IV (DC) Potassium Chloride (POTASSIUM CHLORIDE 20MEQ TAB .ER) 40 MEQ DAILY PRN PRN PO Insulin Glargine (Lantus/Semglee) 30 UNIT DAILY SUBQ Insulin Glargine (Lantus/Semglee) 20 UNIT BEDTIM E SUBQ Insulin Human Lispro (HUMALOG) 0 AC HS SUBQ Dextrose/Water (DEXTROSE 10% IN WATER) 125 ML DIR PRN IV (CKD) Dextrose/Water (DEXTROSE 10% IN WATER) 250 ML DIR PRN IV (CKD) Glucagon (GLUCAGON) 1 MG ASDIR PRN IM Amiodarone HCl (CORDARONE) 200 MG BID PO Sterile Water (WATER FOR INJECTION) 5 ML ASDIR P RN IV Sterile Water (WATER FOR INJECTION) 5 ML ASDIR P RN IV Sodium Chloride (SODIUM CHLORIDE) 4 ML RTBID NEB Melatonin (Melatonin) 3 MG BEDTIME PO Sodium Chloride (SODIUM CHLORIDE) 10 ML BID IV Sodium Chloride (SODIUM CHLORIDE) 10 ML ASDIR NE N IV Pantoprazole (PROTONIX) 40 MG DAILY PO Dexmedetomidine/Sodium Chloride (PRECEDEX 1000MC G/NS 250ML) 250 ML ASDIR IV Bisacodyl (DULCOLAX) 10 MG DAILY PRN PRN RECTAL Lactulose (LACTULOSE) 20 GM DAILY PRN PRN PO Magnesium Hydroxide (MILK OF MAGNESIA) 30 ML PETER LY PRN PRN PO Aspirin (ASPIRIN) 81 MG DAILY PO Clopidogrel Bisulfate (Plavix) 75 MG DAILY PO Cyanocobalamin (Vitamin B-12 500 mcg tab) 500 MC G DAILY PO Ferrous Sulfate (FERROUS SULFATE) 325 MG DAILY P O Metolazone (metOLazone) 5 MG DAILY PO Polyethylene Glycol (MIRALAX) 17 GM DAILY PO Atorvastatin Calcium (LIPITOR) 40 MG 2100 PO Docusate Sodium (DOCUSATE SODIUM) 100 MG BID PO Metoprolol Tartrate (LOPRESSOR) 12.5 MG Q12HR PO (DC) Senna (SENOKOT) 17.6 MG BEDTIME PO Acetaminophen (TYLENOL) 650 MG Q4H PRN PRN PO Acetylcysteine (MUCOMYST FOR RT) 200 MG RTQ6H NE B Albuterol/Ipratropium (DUONEB) 3 ML RTQ6H NEB Bisacodyl (DULCOLAX) 10 MG ONCE PRN RECTAL Dopamine HCl/Dextrose (DOPamine 400MG/D5W 250ML) 250 ML ASDIR IV Milrinone Lactate/Dextrose (MILRINONE 20MG/D5W 1 00ML) 100 ML ASDIR IV ( CKD) Vasopressin (VASOSTRICT 20 Unit/NS 100ML) 100 ML ASDIR IV (CKD) Acetaminophen (TYLENOL) 650 MG Q4H PRN PRN RECTA L Calcium Chloride (CALCIUM CHLORIDE) 1 GM ASDIR P RN IV Magnesium Sulfate (MAGNESIUM SULFATE 4GM/SWFI 10 0ML) 100 ML ASDIR PRN IV Magnesium Sulfate (MAGNESIUM SULFATE 2GM/SWFI 50 ML) 50 ML ASDIR PRN IV Magnesium Sulfate/Dextrose (MAGNESIUM SULFATE 1G M/D5W 100ML) 100 ML ASDIR PRN IV Nitroglycerin/Dextrose (NITROGLYCERIN 50,000MCG/ D5W 250ML) 250 ML ASDIR IV Norepinephrine Bitartrate (NOREPINEPHRINE 8 MG/N S 250 ML) 250 ML TITRATE IV Potassium Chloride (KCL 20MEQ/SWFI 100ML) 100 ML ASDIR PRN IV Sodium Bicarbonate (SODIUM BICARBONATE) 50 MEQ A SDIR PRN IV Ondansetron HCl (ZOFRAN) 4 MG Q6H PRN PRN IV Functional Progress Functional progress: Weightbearing: No Restriction Ambulation Distance: 30FT X2 25FT X2 Progression: Forward Assistance Level: Minimal Assistance Gait Deviations: Shuffling SHORT STEPS HEAD DOWN [facility] Mobility: No Document Pain/Education: No Advanced Progression: No Effects of Treatment: [place] of care decreased Function Improved Gait quality improved Cardio tolerance improved Post [place] Precautions: In Chair Call Light in Reach Nursing Notified O2 on Pulse OX in Place Family/Sitter at Bedside Review Plan of Care: Yes PT charges: Gait Training [id number] Gait Cmt: Pt IN RECLINER UPON ARRIVAL. Pt HAS O N LYMPHADEMA GARMENTS TO REDUCE BLE SWELLING. Pt WEARS THIS AT HOME PRIOR TO ADMISSION 10HRS A DAY. Pt IS MIN A WITH INITIAL SIT TO STAND AND PROGRESSED TO SBA . FROM LOW LEVEL SURFACE, Pt NEEDS GUIDANCE. FRO M HIGH LEVEL SURFACE, Pt IS ABLE TO PERFORM SIT T O STAND SBA. Pt AMBULATED 30FT X2 AND 25FT X2. NEED ENCOURAGEMENT AND REMINDERS TO KEEP THE WALKER CLOSE. Pt HAS A STEP TO GAIT PATTERN. Pt IS MIN A WITH GAIT MAINLY FOR PACING. Pt RETURNED TO THE RECLINER. ALL NEEDS ARE MET. FAMILY IN THE ROOM . EDUCATED Pt ON THE IMPORTANCE OF AMBULATING AND THE CONSEQUENCE OF NOT AMBULATING. If this is the patient's last treatment, this e ntry serves as the discharge summary: Y Start Time: 1030 Stop Time: 1100 Treatment Time : ( minutes) 0:30 Completed by: Bea Mathew Conference/Supervising PT: Yes Supervising Therapist: Brandie Mark Reviewed and Approved By: BRANDIE WADE PT . BED MOBILITY: No TRANSFERS: Yes Bed to/from chair: Minimal Assistance Sit to/from stand: Minimal Assistance Comments: MIN FROM LOW SURFACE (RECLINER) SBA FROM HIGH SURFACE (TRANSPORT CHAIR) Physical Exam General appearance: alert, awake Psych: alert, oriented x 3 HEENT: anicteric, mucosal membranes moist Neck: supple, no JVD Cardiovascular: regular rate rhythm, no murmur Respiratory: diminished breath sounds (bases ), on oxygen (Hi flow O2 ) Abdomen: bowel sounds present, non-distended, so ft, non-tender Skin: dry, intact, no rash, incisions D/I Musculoskeletal - general: Musculoskeletal - general: swelling (BLE +3), m oving all ext AG 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, 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, normal speech, n o motor deficits, no sensory deficits Results Findings/Data: Laboratory Tests: 01/02 01/02 01/01 01/01 1805 1586 1770 1665 Blood Gas Puncture Site Art Line O2 Saturation (90 - 100 %) 96.7 ABG pH (7.35 - 7.45) 7.351 ABG pCO2 (35.0 - 45 mmHg) 69.0 *H ABG pO2 (80 - 100.0 mmHg) 94.8 ABG HCO3 (22.0 - 26.0 MMOL/L) 38.4 *H ABG Total CO2 40.5 ABG Base Excess (-4.0 - 4.0 MMOL/L) 12.7 H ABG Hematocrit (33.0 - 45.0 %) 27 L ABG Hemoglobin (11.0 - 15.0 G/DL) 9.3 L Martin Test N/A Sodium (134 - 147 MEQ/L) 143 Potassium (3.4 - 5.0 MEQ/L) 3.3 L Chloride (100 - 108 MEQ/L) 96 L Ionized Calcium (1.12 - 1.32 MMOL/L) 1.35 H Lactic Acid (0.9 - 1.7 mmol/l) 0.6 L Temperature (F) 98 O2 Delivery Device Cannula Chemistry Sodium (134 - 147 mEq/L) 143 Potassium (3.4 - 5.0 mEq/L) 3.4 Chloride (100 - 108 mEq/L) 100 Carbon Dioxide (21 - 33 mEq/l) 37 H Anion Gap (0 - 20) 9 BUN (7 - 18 mg/dL) 29 H Creatinine (0.6 - 1.3 mg/dL) 1.0 POC Creatinine (0.6 - 1.0 mg/dL) 1.2 H Glomerular Filtr Rate (70 - 80) 53.6 L Glucose (70 - 110 mg/dL) 146 H POC Glucose (70 - 110 MG/DL) 196 H 218 H POC Glucose (mg/dL) (70 - 110 MG/DL) 157 H Calcium (8.0 - 10.5 mg/dL) 9.8 Magnesium (1.80 - 2.40 mg/dL) 2.02 Hematology WBC (4.5 - 11.0 x10 3/uL) 9.1 RBC (3.54 - 5.02 x10 6/uL) 2.32 L Hgb (11.0 - 15.0 g/dL) 8.1 L Hct (33.0 - 45.0 %) 25.6 L MCV (81.0 - 99.0 fL) 110.3 H MCH (27.0 - 33.0 pg) 34.9 H MCHC (33.0 - 37.0 g/dL) 31.6 L RDW (11.5 - 14.5 %) 17.3 H Plt Count (150 - 400 x10 3/uL) 272 MPV (7.0 - 9.0 fL) 11.0 H Neut % (Auto) (56.0 - 77.0 %) 80.2 H Lymph % (Auto) (14.0 - 32.0 %) 5.1 L Barron % (Auto) (4.8 - 9.0 %) 9.4 H Eos % (Auto) (0.3 - 3.7 %) 1.5 Baso % (Auto) (0.0 - 2.0 %) 0.4 Neut # (Auto) (2.0 - 7.6 x10 3/uL) 7.28 Lymph # (Auto) (1.0 - 3.8 x10 3/uL) 0.46 L Barron # (Auto) (0.1 - 0.8 x10 3/uL) 0.85 H Eos # (Auto) (0.0 - 0.2 x10 3/uL) 0.14 Baso # (Auto) (0.0 - 0.2 x10 3/uL) 0.04 Abs Immat Gran (auto) (0.00 - 0.03 x10 3/uL) 0. 31 H Add Manual Diff NO Immature Gran % (0.0 - 2.0 %) 3.4 H Nucleated RBC % (0 - 0 %) 1.5 H Nucleated RBCs # (Man) (0.0 - 0.1 x10 3/uL) 0. 14 H 01/01 01/01 1212 0841 Chemistry POC Glucose (70 - 110 MG/DL) 191 H 95 Diagnosis, Assessment Plan Free Text A P: 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 fib Hypoxic respiratory failure Plan: Continue PT/OT Out of bed to chair Work on strength, bed mobility, transfers, gait Increase endurance Fall precautions Monitor p.o. intake and nutrition Strict decubitus precautions Monitor anemia Advance therapies as tolerated Tolerating regular diet Continue diuresis- monitor strict I Os Lasix drip discontinued. Started on IV Lasix and Diamox Weigh patient daily Advance therapies as tolerated IRF consulted Total time was 33 minutes > 50% with patient per forming physical examination, discussing O2 requirements, plan of care, goals, therapies, progress, medications, labs, IRF. All questions answered Rehab attestation: . Electronically Signed by Herberth Pantoja on at 1522 RPT #:[id number] END OF REPORT 2022-01-01 20:34:00-00:00 [facility] Progress Note REPORT#:[id number] REPORT STATUS: Signed DATE:01/01/22 TIME: 2033 PATIENT: SAÚL GILES UNIT #: [id number] ROOM/BED: [place] [id number] : 43 AGE: 76 SEX: F ATTEND: Leah More MD ADM AUTHOR: Alicia Pantoja NP * ALL edits or amendments must be made on the el [employer]/computer document * Subjective Chief complaint: rehab follow-up ambulating with therapy around the unit very fatigue appearance Significant generalized weakness, fatigue No GOLD/N/V/D 14 systems reviewed and negative except that men tioned above. Objective General VS: Vital Signs: Date Time Temp Pulse Resp B/P B/P Pulse O2 O2 F low FiO2 Mean Ox Delivery Rate 01/02 2000 98.2 01/02 2000 Nasal 5 cannula 01/01 1600 73 45 142/64 92 01/01 1501 72 31 127/58 84 01/01 1401 75 31 146/65 93 95 01/01 1301 71 24 150/67 97 01/01 1127 73 35 140/63 91 81 01/01 1000 71 27 154/49 84 91 01/01 0900 71 27 152/50 85 01/01 0806 97.9 01/01 0801 70 23 150/54 90 96 01/01 0800 70 28 155/52 89 92 01/01 0800 98 Nasal 3 cannula 01/01 0736 71 26 169/58 100 93 01/01 0730 High flow 5 nasal cannula 01/01 0730 71 27 166/58 98 91 01/01 0715 74 28 157/56 94 94 01/01 0701 157/71 102 01/01 0701 70 26 164/57 97 96 01/01 0700 69 27 164/58 98 96 01/01 0645 76 29 161/58 96 89 01/01 0615 69 30 157/56 95 98 01/01 0600 72 28 161/58 99 87 01/01 0515 71 26 318/318 318 91 01/01 0445 97.3 71 28 145/51 86 90 01/01 0435 79 100 40 01/01 0430 97.5 73 23 153/59 96 100 01/01 0415 97.5 69 14 113/38 60 100 10/20 0401 114/53 77 10/20 0401 97.5 69 14 118/38 63 100 10/ 0400 97.5 69 14 121/42 66 100 10/ 0345 97.5 69 16 118/41 65 100 10/ 0315 97.3 69 16 126/43 70 100 10/20 0300 143/64 92 01/01 0300 97.2 69 15 147/53 86 100 01/01 0245 97.2 69 20 146/54 89 98 01/01 0230 97.3 75 25 150/54 90 90 01/01 0215 97.7 73 30 142/51 85 88 01/01 0200 136/78 99 01/01 0115 97.7 69 16 115/39 63 100 01/01 0100 136/65 93 01/01 0045 97.7 75 28 140/50 83 94 01/01 0015 97.7 71 22 121/44 68 100 01/01 0000 97.7 69 26 126/46 72 100 12/31 2330 97.7 74 34 145/58 89 96 12/31 2300 128/62 89 12/31 2300 97.9 71 22 145/52 84 96 12/31 2245 97.9 71 26 147/54 86 90 12/31 2230 97.9 69 20 130/49 75 100 12/31 2215 97.9 69 20 143/55 85 100 12/31 2200 131/57 82 12/31 2200 97.7 69 21 133/49 73 100 12/31 2145 97.7 69 20 142/50 79 100 12/31 2130 97.5 69 19 152/52 83 100 12/31 2115 97.5 70 28 145/53 82 100 12/31 2101 140/59 85 12/31 210 97.5 69 29 151/54 87 98 12/31 2046 73 100 40 12/31 2044 97.5 73 31 153/53 85 94 PATIENT WEIGHT: Weight (lb): 266 Weight (oz): 12.15 Weight (kg): 121.000 Medications: Active Meds + DC'd Last 24 Hrs Metoprolol Tartrate (LOPRESSOR) 25 MG Q12HR PO Acetazolamide (DIAMOX) 500 MG Q24H IV Furosemide (LASIX 40 mg/4 mL INJECTION) 40 MG DA EMELIA IV Sterile Water (WATER FOR INJECTION) 5 ML ASDIR P RN IV Furosemide (LASIX 40 mg/4 mL INJECTION) 40 MG Q2 4H IV (DC) Potassium Chloride (POTASSIUM CHLORIDE 20MEQ TAB .ER) 40 MEQ DAILY PRN PRN PO Insulin Glargine (Lantus/Semglee) 30 UNIT DAILY SUBQ Insulin Glargine (Lantus/Semglee) 20 UNIT BEDTIM E SUBQ Insulin Human Lispro (HUMALOG) 0 AC HS SUBQ Dextrose/Water (DEXTROSE 10% IN WATER) 125 ML DIR PRN IV (CKD) Dextrose/Water (DEXTROSE 10% IN WATER) 250 ML DIR PRN IV (CKD) Glucagon (GLUCAGON) 1 MG ASDIR PRN IM Amiodarone HCl (CORDARONE) 200 MG BID PO Sterile Water (WATER FOR INJECTION) 5 ML ASDIR P RN IV Sterile Water (WATER FOR INJECTION) 5 ML ASDIR P RN IV Sodium Chloride (SODIUM CHLORIDE) 4 ML RTBID NEB Melatonin (Melatonin) 3 MG BEDTIME PO Sodium Chloride (SODIUM CHLORIDE) 10 ML BID IV Sodium Chloride (SODIUM CHLORIDE) 10 ML ASDIR NE N IV Pantoprazole (PROTONIX) 40 MG DAILY PO Dexmedetomidine/Sodium Chloride (PRECEDEX 1000MC G/NS 250ML) 250 ML ASDIR IV Bisacodyl (DULCOLAX) 10 MG DAILY PRN PRN RECTAL Lactulose (LACTULOSE) 20 GM DAILY PRN PRN PO Magnesium Hydroxide (MILK OF MAGNESIA) 30 ML PETER LY PRN PRN PO Aspirin (ASPIRIN) 81 MG DAILY PO Clopidogrel Bisulfate (Plavix) 75 MG DAILY PO Cyanocobalamin (Vitamin B-12 500 mcg tab) 500 MC G DAILY PO Ferrous Sulfate (FERROUS SULFATE) 325 MG DAILY P O Metolazone (metOLazone) 5 MG DAILY PO Polyethylene Glycol (MIRALAX) 17 GM DAILY PO Atorvastatin Calcium (LIPITOR) 40 MG 2100 PO Docusate Sodium (DOCUSATE SODIUM) 100 MG BID PO Metoprolol Tartrate (LOPRESSOR) 12.5 MG Q12HR PO (DC) Senna (SENOKOT) 17.6 MG BEDTIME PO Acetaminophen (TYLENOL) 650 MG Q4H PRN PRN PO Acetylcysteine (MUCOMYST FOR RT) 200 MG RTQ6H NE B Albuterol/Ipratropium (DUONEB) 3 ML RTQ6H NEB Bisacodyl (DULCOLAX) 10 MG ONCE PRN RECTAL Dopamine HCl/Dextrose (DOPamine 400MG/D5W 250ML) 250 ML ASDIR IV Milrinone Lactate/Dextrose (MILRINONE 20MG/D5W 1 00ML) 100 ML ASDIR IV ( CKD) Vasopressin (VASOSTRICT 20 Unit/NS 100ML) 100 ML ASDIR IV (CKD) Acetaminophen (TYLENOL) 650 MG Q4H PRN PRN RECTA L Calcium Chloride (CALCIUM CHLORIDE) 1 GM ASDIR P RN IV Magnesium Sulfate (MAGNESIUM SULFATE 4GM/SWFI 10 0ML) 100 ML ASDIR PRN IV Magnesium Sulfate (MAGNESIUM SULFATE 2GM/SWFI 50 ML) 50 ML ASDIR PRN IV Magnesium Sulfate/Dextrose (MAGNESIUM SULFATE 1G M/D5W 100ML) 100 ML ASDIR PRN IV Nitroglycerin/Dextrose (NITROGLYCERIN 50,000MCG/ D5W 250ML) 250 ML ASDIR IV Norepinephrine Bitartrate (NOREPINEPHRINE 8 MG/N S 250 ML) 250 ML TITRATE IV Potassium Chloride (KCL 20MEQ/SWFI 100ML) 100 ML ASDIR PRN IV Sodium Bicarbonate (SODIUM BICARBONATE) 50 MEQ A SDIR PRN IV Ondansetron HCl (ZOFRAN) 4 MG Q6H PRN PRN IV Physical Exam General appearance: obese, alert, awake, oriente d, no acute distress Psych: alert, oriented x 3 HEENT: anicteric, mucosal membranes moist Neck: supple, no JVD Cardiovascular: regular rate rhythm, no murmur Respiratory: diminished breath sounds (bases ), on oxygen (Hi flow O2 ) Abdomen: bowel sounds present, non-distended, so ft, non-tender Skin: dry, intact, no rash, incisions D/I Musculoskeletal - general: Musculoskeletal - general: swelling (BLE +3), m oving all ext AG 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, 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, normal speech, n o motor deficits, no sensory deficits Results Findings/Data: Laboratory Tests: 01/01 01/01 01/01 01/01 1809 1212 0841 0330 Chemistry Sodium (134 - 147 mEq/L) 141 Potassium (3.4 - 5.0 mEq/L) 3.5 Chloride (100 - 108 mEq/L) 102 Carbon Dioxide (21 - 33 mEq/l) 37 H Anion Gap (0 - 20) 6 BUN (7 - 18 mg/dL) 28 H Creatinine (0.6 - 1.3 mg/dL) 1.0 Glomerular Filtr Rate (70 - 80) 53.6 L Glucose (70 - 110 mg/dL) 95 POC Glucose (70 - 110 MG/DL) 218 H 191 H 95 Calcium (8.0 - 10.5 mg/dL) 9.5 Magnesium (1.80 - 2.40 mg/dL) 1.92 Hematology WBC (4.5 - 11.0 x10 3/uL) 9.4 RBC (3.54 - 5.02 x10 6/uL) 2.11 L Hgb (11.0 - 15.0 g/dL) 7.5 L Hct (33.0 - 45.0 %) 23.2 L MCV (81.0 - 99.0 fL) 110.0 H MCH (27.0 - 33.0 pg) 35.5 H MCHC (33.0 - 37.0 g/dL) 32.3 L RDW (11.5 - 14.5 %) 16.9 H Plt Count (150 - 400 x10 3/uL) 245 MPV (7.0 - 9.0 fL) 10.8 H Neut % (Auto) (56.0 - 77.0 %) 83.5 H Lymph % (Auto) (14.0 - 32.0 %) 6.1 L Barron % (Auto) (4.8 - 9.0 %) 7.0 Eos % (Auto) (0.3 - 3.7 %) 1.4 Baso % (Auto) (0.0 - 2.0 %) 0.2 Neut # (Auto) (2.0 - 7.6 x10 3/uL) 7.84 H Lymph # (Auto) (1.0 - 3.8 x10 3/uL) 0.57 L Barron # (Auto) (0.1 - 0.8 x10 3/uL) 0.66 Eos # (Auto) (0.0 - 0.2 x10 3/uL) 0.13 Baso # (Auto) (0.0 - 0.2 x10 3/uL) 0.02 Abs Immat Gran (auto) (0.00 - 0.03 x10 3/uL) 0. 17 H Add Manual Diff NO Immature Gran % (0.0 - 2.0 %) 1.8 Nucleated RBC % (0 - 0 %) 0.7 H Nucleated RBCs # (Man) (0.0 - 0.1 x10 3/uL) 0.0 7 01/01 0329 Blood Gas Puncture Site Art Line O2 Saturation (90 - 100 %) 97.3 ABG pH (7.35 - 7.45) 7.380 ABG pCO2 (35.0 - 45 mmHg) 65.2 *H ABG pO2 (80 - 100.0 mmHg) 98.3 ABG PO2/FiO2 Ratio (mm/Hg) 245.75 ABG HCO3 (22.0 - 26.0 MMOL/L) 38.8 *H ABG Total CO2 40.8 ABG Base Excess (-4.0 - 4.0 MMOL/L) 13.5 H ABG Hematocrit (33.0 - 45.0 %) 24 L ABG Hemoglobin (11.0 - 15.0 G/DL) 8.1 L Martin Test N/A Sodium (134 - 147 MEQ/L) 143 Potassium (3.4 - 5.0 MEQ/L) 3.4 Chloride (100 - 108 MEQ/L) 93 L Ionized Calcium (1.12 - 1.32 MMOL/L) 1.33 H Lactic Acid (0.9 - 1.7 mmol/l) 0.4 L Temperature (F) 97.7 O2 Delivery Device BiPAP Vent Rate (/MIN) 20 FiO2 (%) 40 Tidal Volume (ml) 450 PEEP (cmH2O) 8 Pressure Support (cmH2O) 18 Chemistry POC Creatinine (0.6 - 1.0 mg/dL) 1.2 H POC Glucose (mg/dL) (70 - 110 MG/DL) 90 Diagnosis, Assessment Plan Free Text A P: 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 fib Hypoxic respiratory failure Plan: Continue PT/OT Out of bed to chair Work on strength, bed mobility, transfers, gait Increase endurance Fall precautions Monitor p.o. intake and nutrition Strict decubitus precautions Monitor anemia Advance therapies as tolerated Tolerating regular diet Continue diuresis- monitor strict I Os Lasix drip discontinued. Started on IV Lasix and Diamox Weigh patient daily Advance therapies as tolerated CLOF with therapy Pt IN RECLINER UPON ARRIVAL. Pt HAS ON L YMPHEDEMA GARMENTS. Pt IS SBA WITH SIT TO STAND AND GAIT. Pt AMBULATED 20FT X6 WITH A R W. WC FOLLOWED FOR SAFETY. 5 SITTING BREAKS TAKEN DUE TO SO B. LOW ACTIVITY TOLERANCE. EDUCATED Pt ON PURSED LIP BREATHING. O2 SAT REMAINED 88-92% DURING GAIT. Pt IS SELF LIMITING AND NEEDS LOTS OF ENCOURAGEM ENT. Will eventually need IRF when medically ready. CLOF with therapy Ambulation 20 feet, 5 feet, 15 feet x 2 moderate assistance with rolling walker, shuffling gait short steps head down FF: 30mins: Time spent with daughter discussing the following: PLF/Home environment/CLOF/decrease motivation/Pt has poor endurance. Monitoring pt progress for disposition recommendations -Discussed the 3 options Home/PT, SNF, IPR. We are currently on wanting to take the pt to IPR. Will need insurance approval. Educated on IPR en vironment, expectation, and goals. Further discussed pt Discharge POC after leaving acute setting. Answered all questions TT: 66 mins, Time spent reviewing chart, notes, labs, meds, therapy notes, discussed medical mgt, and rehab poc, goals. Discussed Pt's poc with CM, CVS team, nursing, a nd therapy team Rehab attestation: Face to face exam completed. Treatment plan disc ussed with patient. at 2043 RPT #:[id number] END OF REPORT 2022-01-01 12:07:00-00:00 [facility] Hospitalist Progress Note REPORT#:[id number] REPORT STATUS: Signed DATE:01/01/22 TIME: 1207 PATIENT: SAÚL GILES UNIT #: [id number] ROOM/BED: [place] [address] : 43 AGE: 76 SEX: F ATTEND: Leah More MD ADM AUTHOR: Meryl Rosa MD * ALL edits or amendments must be made on the el [facility]/computer document * Subjective Chief complaint: she improve . less sob and edema acute respiratory failure --post CABG HPI: 76 years old female with PMH of macular degeneration, obesity, obstructive sleep apnea (CPAP at home), former smoker, hypertensio n, hyperlipidemia, diabetes, Crohn's disease, chronic atr ial fibrillation status post 3 ablations in the past (on Xarelto), pacemaker plac ement is admitted to the hospital post cardiac cath . she need CABG . she had sob for years . sob go t worse . she was admitted to the hospital in [place] . she had cath 3 we eks ago . she was reffered to here for stents placement . she had cath yesterd ay . it show multiple vessels CAD . she is recommend CABG . she still feel sob . no cp no nausea no vomiting no fever no abdominal pain no dizziness . Review of Systems Constitutional: Reports: fatigue, generalized weakness. Denies: fever, lethargy. Respiratory: Reports: DOUGLASS (dyspnea on exertion), SOB. Denies: wheezing. Cardiovascular: Reports: DOUGLASS (dyspnea on exertion), edema. Denie s: chest pain. GI: Denies: abdominal pain, nausea, vomiting. Neuro: Denies: dizziness. Objective General VS/I O: Vital Signs: Date Time Temp Pulse Resp B/P B/P Pulse O2 O2 F low FiO2 Mean Ox Delivery Rate 01/01 0806 36.6 01/01 0800 98 Nasal 3 cannula 01/01 0736 71 26 169/58 100 93 01/01 0730 71 27 166/58 98 91 10/ 0715 74 28 157/56 94 94 / 0701 157/71 102 10/ 0701 70 26 164/57 97 96 10/ 0700 69 27 164/58 98 96 10/ 0645 76 29 161/58 96 89 10/ 0615 69 30 157/56 95 98 10/20 0600 72 28 161/58 99 87 10/ 0515 71 26 318/318 318 91 10/ 0445 36.3 71 28 145/51 86 90 10/ 0435 79 100 40 10/20 0430 36.4 73 23 153/59 96 100 10/20 0415 36.4 69 14 113/38 60 100 10/20 0401 114/53 77 10/20 0401 36.4 69 14 118/38 63 100 10/20 0400 36.4 69 14 121/42 66 100 10/20 0345 36.4 69 16 118/41 65 100 10/20 0315 36.3 69 16 126/43 70 100 10/20 0300 143/64 92 10/20 0300 36.2 69 15 147/53 86 100 10/20 0245 36.2 69 20 146/54 89 98 10/20 0230 36.3 75 25 150/54 90 90 01/01 0215 36.5 73 30 142/51 85 88 01/01 0200 136/78 99 01/01 0115 36.5 69 16 115/39 63 100 01/01 0100 136/65 93 01/01 0045 36.5 75 28 140/50 83 94 01/01 0015 36.5 71 22 121/44 68 100 01/01 0000 36.5 69 26 126/46 72 100 12/31 2330 36.5 74 34 145/58 89 96 12/31 2300 128/62 89 12/31 2300 36.6 71 22 145/52 84 96 12/31 2245 36.6 71 26 147/54 86 90 12/31 2230 36.6 69 20 130/49 75 100 12/31 2215 36.6 69 20 143/55 85 100 12/31 2200 131/57 82 12/31 2200 36.5 69 21 133/49 73 100 12/31 2145 36.5 69 20 142/50 79 100 12/31 2130 36.4 69 19 152/52 83 100 12/31 2115 36.4 70 28 145/53 82 100 12/31 2101 140/59 85 12/31 2101 36.4 69 29 151/54 87 98 12/31 2046 73 100 40 12/31 2044 36.4 73 31 153/53 85 94 12/31 2014 36.4 69 26 166/57 91 98 12/31 2000 Nasal 2 cannula 01/01 2000 36.4 69 29 162/55 86 98 12/31 1745 36.7 72 29 145/51 80 95 12/31 1730 36.6 75 27 148/48 78 97 12/31 1700 127/60 87 12/31 1700 36.4 74 31 154/52 84 93 12/31 1630 36.3 72 34 150/45 75 93 12/31 1600 129/60 86 12/31 1600 36.2 71 38 149/51 82 90 12/31 1530 36.2 72 151/50 81 95 12/31 1500 36.2 72 29 144/48 77 95 12/31 1445 36.2 71 31 143/51 82 97 12/31 1415 36.3 74 34 129/73 96 93 12/31 1400 36.3 75 26 144/49 77 99 12/31 1357 36.3 74 28 142/48 77 100 12/31 1345 36.3 75 22 139/47 73 100 12/31 1330 36.3 73 32 134/46 75 95 12/31 1315 72 29 158/57 89 96 12/31 1300 36.3 69 24 149/50 79 100 12/31 1245 36.3 72 27 142/52 81 98 12/31 1230 36.2 72 35 128/49 75 87 12/31 1215 36.2 75 31 146/48 76 90 24 hour I O ending at 0700: 01/01 0700 12/31 1900 Intake Total 400 960 Output Total 850 1350 Balance -450 -390 Intake, Oral 400 960 Output, Urine 850 1350 PATIENT WEIGHT: Weight (lb): 266 Weight (oz): 12.15 Weight (kg): 121.000 Medications: Active Meds + DC'd Last 24 Hrs Acetazolamide (DIAMOX) 500 MG Q24H IV Furosemide (LASIX 40 mg/4 mL INJECTION) 40 MG DA EMELIA IV Sterile Water (WATER FOR INJECTION) 5 ML ASDIR P RN IV Potassium Chloride (POTASSIUM CHLORIDE 20MEQ TAB .ER) 40 MEQ ONCE ONE PO (DC) Furosemide (LASIX 40 mg/4 mL INJECTION) 40 MG Q2 4H IV (DC) Potassium Chloride (POTASSIUM CHLORIDE 20MEQ TAB .ER) 40 MEQ DAILY PRN PRN PO Insulin Glargine (Lantus/Semglee) 30 UNIT DAILY SUBQ Insulin Glargine (Lantus/Semglee) 20 UNIT BEDTIM E SUBQ Insulin Human Lispro (HUMALOG) 0 AC HS SUBQ Dextrose/Water (DEXTROSE 10% IN WATER) 125 ML DIR PRN IV (CKD) Dextrose/Water (DEXTROSE 10% IN WATER) 250 ML DIR PRN IV (CKD) Glucagon (GLUCAGON) 1 MG ASDIR PRN IM Amiodarone HCl (CORDARONE) 200 MG BID PO Sterile Water (WATER FOR INJECTION) 5 ML ASDIR P RN IV Sterile Water (WATER FOR INJECTION) 5 ML ASDIR P RN IV Sodium Chloride (SODIUM CHLORIDE) 4 ML RTBID NEB Melatonin (Melatonin) 3 MG BEDTIME PO Sodium Chloride (SODIUM CHLORIDE) 10 ML BID IV Sodium Chloride (SODIUM CHLORIDE) 10 ML ASDIR NE N IV Pantoprazole (PROTONIX) 40 MG DAILY PO Dexmedetomidine/Sodium Chloride (PRECEDEX 1000MC G/NS 250ML) 250 ML ASDIR IV Bisacodyl (DULCOLAX) 10 MG DAILY PRN PRN RECTAL Lactulose (LACTULOSE) 20 GM DAILY PRN PRN PO Magnesium Hydroxide (MILK OF MAGNESIA) 30 ML PETER LY PRN PRN PO Aspirin (ASPIRIN) 81 MG DAILY PO Clopidogrel Bisulfate (Plavix) 75 MG DAILY PO Cyanocobalamin (Vitamin B-12 500 mcg tab) 500 MC G DAILY PO Ferrous Sulfate (FERROUS SULFATE) 325 MG DAILY P O Metolazone (metOLazone) 5 MG DAILY PO Polyethylene Glycol (MIRALAX) 17 GM DAILY PO Atorvastatin Calcium (LIPITOR) 40 MG 2100 PO Docusate Sodium (DOCUSATE SODIUM) 100 MG BID PO Metoprolol Tartrate (LOPRESSOR) 12.5 MG Q12HR PO Senna (SENOKOT) 17.6 MG BEDTIME PO Acetaminophen (TYLENOL) 650 MG Q4H PRN PRN PO Acetylcysteine (MUCOMYST FOR RT) 200 MG RTQ6H NE B Albuterol/Ipratropium (DUONEB) 3 ML RTQ6H NEB Bisacodyl (DULCOLAX) 10 MG ONCE PRN RECTAL Dopamine HCl/Dextrose (DOPamine 400MG/D5W 250ML) 250 ML ASDIR IV Milrinone Lactate/Dextrose (MILRINONE 20MG/D5W 1 00ML) 100 ML ASDIR IV ( CKD) Vasopressin (VASOSTRICT 20 Unit/NS 100ML) 100 ML ASDIR IV (CKD) Acetaminophen (TYLENOL) 650 MG Q4H PRN PRN RECTA L Calcium Chloride (CALCIUM CHLORIDE) 1 GM ASDIR P RN IV Dextrose/Water (DEXTROSE 10% IN WATER) 125 ML DIR PRN IV (DC) Dextrose/Water (DEXTROSE 10% IN WATER) 250 ML DIR PRN IV (DC) Glucagon (GLUCAGON) 1 MG ASDIR PRN IM (DC) Magnesium Sulfate (MAGNESIUM SULFATE 4GM/SWFI 10 0ML) 100 ML ASDIR PRN IV Magnesium Sulfate (MAGNESIUM SULFATE 2GM/SWFI 50 ML) 50 ML ASDIR PRN IV Magnesium Sulfate/Dextrose (MAGNESIUM SULFATE 1G M/D5W 100ML) 100 ML ASDIR PRN IV Nitroglycerin/Dextrose (NITROGLYCERIN 50,000MCG/ D5W 250ML) 250 ML ASDIR IV Norepinephrine Bitartrate (NOREPINEPHRINE 8 MG/N S 250 ML) 250 ML TITRATE IV Potassium Chloride (KCL 20MEQ/SWFI 100ML) 100 ML ASDIR PRN IV Sodium Bicarbonate (SODIUM BICARBONATE) 50 MEQ A SDIR PRN IV Ondansetron HCl (ZOFRAN) 4 MG Q6H PRN PRN IV Physical Exam General appearance: alert, awake, oriented Head/Eyes: atraumatic, normal conjunctiva/sclera , normal eyelids/periorb., normocephalic Neck: full range of motion, non-tender, no JVD Cardiovascular: normal heart sounds, regular rat e rhythm Respiratory: decreased breath sounds, clear to a uscultation Abdomen: non-tender, normal bowel sounds, soft, no distention Extremities: edema, moves all, no calf tendernes s 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, 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 Skin: dry, intact Results Findings/Data: Laboratory Tests 01/01 Blood Gas Puncture Site Art Line Art Line Art Line O2 Saturation (90 - 100 %) 97.3 94.9 81.8 L ABG pH (7.35 - 7.45) 7.380 7.396 7.402 ABG pCO2 (35.0 - 45 mmHg) 65.2 *H 59.8 *H 57.4 *H ABG pO2 (80 - 100.0 mmHg) 98.3 75.7 L 45.7 *L ABG PO2/FiO2 Ratio (mm/Hg) 245.75 142.81 ABG HCO3 (22.0 - 26.0 MMOL/L) 38.8 *H 36.9 *H 3 5.9 *H ABG Total CO2 40.8 38.8 37.7 ABG Base Excess (-4.0 - 4.0 MMOL/L) 13.5 H 11.9 H 11.0 H ABG Hematocrit (33.0 - 45.0 %) 24 L 26 L 27 L ABG Hemoglobin (11.0 - 15.0 G/DL) 8.1 L 8.7 L 9 .3 L Martin Test N/A N/A Sodium (134 - 147 MEQ/L) 143 143 142 Potassium (3.4 - 5.0 MEQ/L) 3.4 3.1 L 3.5 Chloride (100 - 108 MEQ/L) 93 L 96 L 95 L Ionized Calcium (1.12 - 1.32 MMOL/L) 1.33 H 1.3 3 H 1.33 H Lactic Acid (0.9 - 1.7 mmol/l) 0.4 L 1.0 1.0 Temperature (F) 97.7 97.5 97.3 O2 Delivery Device BiPAP Cannula Vent Rate (/MIN) 20 FiO2 (%) 40 32 Tidal Volume (ml) 450 PEEP (cmH2O) 8 Pressure Support (cmH2O) 18 Laboratory Tests 01/01 01/01 01/01 12/31 12/31 0841 0330 328 2017 1628 Chemistry Sodium (134 - 147 mEq/L) 141 Potassium (3.4 - 5.0 mEq/L) 3.5 Chloride (100 - 108 mEq/L) 102 Carbon Dioxide (21 - 33 mEq/l) 37 H Anion Gap (0 - 20) 6 BUN (7 - 18 mg/dL) 28 H Creatinine (0.6 - 1.3 mg/dL) 1.0 POC Creatinine (0.6 - 1.0 mg/dL) 1.2 H 1.1 H 0. 9 Glomerular Filtr Rate (70 - 80) 53.6 L Glucose (70 - 110 mg/dL) 95 POC Glucose (70 - 110 MG/DL) 95 POC Glucose (mg/dL) (70 - 110 MG/DL) 90 190 H 313 H Calcium (8.0 - 10.5 mg/dL) 9.5 Magnesium (1.80 - 2.40 mg/dL) 1.92 12/31 1216 Chemistry POC Glucose (70 - 110 MG/DL) 149 H Laboratory Tests 01/01 0330 Hematology WBC (4.5 - 11.0 x10 3/uL) 9.4 RBC (3.54 - 5.02 x10 6/uL) 2.11 L Hgb (11.0 - 15.0 g/dL) 7.5 L Hct (33.0 - 45.0 %) 23.2 L MCV (81.0 - 99.0 fL) 110.0 H MCH (27.0 - 33.0 pg) 35.5 H MCHC (33.0 - 37.0 g/dL) 32.3 L RDW (11.5 - 14.5 %) 16.9 H Plt Count (150 - 400 x10 3/uL) 245 MPV (7.0 - 9.0 fL) 10.8 H Neut % (Auto) (56.0 - 77.0 %) 83.5 H Lymph % (Auto) (14.0 - 32.0 %) 6.1 L Barron % (Auto) (4.8 - 9.0 %) 7.0 Eos % (Auto) (0.3 - 3.7 %) 1.4 Baso % (Auto) (0.0 - 2.0 %) 0.2 Neut # (Auto) (2.0 - 7.6 x10 3/uL) 7.84 H Lymph # (Auto) (1.0 - 3.8 x10 3/uL) 0.57 L Barron # (Auto) (0.1 - 0.8 x10 3/uL) 0.66 Eos # (Auto) (0.0 - 0.2 x10 3/uL) 0.13 Baso # (Auto) (0.0 - 0.2 x10 3/uL) 0.02 Abs Immat Gran (auto) (0.00 - 0.03 x10 3/uL) 0. 17 H Add Manual Diff NO Immature Gran % (0.0 - 2.0 %) 1.8 Nucleated RBC % (0 - 0 %) 0.7 H Nucleated RBCs # (Man) (0.0 - 0.1 x10 3/uL) 0.0 7 Radiology data: Recent Impressions: RADIOLOGY - XR CHEST 1 V 01/01 0642 Report Impression - Status: SIGNED Entered: 01/01/2022 0702 IMPRESSION: Stable exam. Bilateral pulmonary opacities likel y combination of airspace disease and atelectasis. Bilateral pleu ral effusions. Stable postoperative cardiomediastinal silhouett e. Impression By: Catherine Carlisle M.D. Treatment Prophylaxis Treatment Prophylaxis Drain(s)/tube(s): Drain(s)/tube(s): chest (x3) Diagnosis, Assessment Plan Consultants: cardiology, cardiovascular surgery Free Text DxA P Notes Free text DxA P notes: 76 years old female with PMH of macular degeneration, obesity, obstructive sleep apnea (CPAP at home), former smoker, hypertensio n, hyperlipidemia, diabetes, Crohn's disease, chronic atr ial fibrillation status post 3 ablations in the past (on Xarelto), pacemaker placement CAD -- multiple vesssels HTN DM HLD Crohn's disease chronic atrial fibrillation status post 3 ablati ons macular degeneration obesity obstructive sleep apnea acute respiratory failure --post surgery severe mitral valve regurgitation constrictive pericarditis CAD -- cardiology consult CV surgeon consult CABG -- AM ASA/lipitor afib -- rate control -- hold xarelto for surgery HTN-- continue home med DM-- on lantus -- sliding scale HLD-- on lipitor RONA--cpap as need DVTP -- heparin 12/18- feel sob -- CABG -- afternoon 12/19--post MVR (31 Magna valve), CABG x 1 (ROBERTS- LAD), ILAA and pericardectomy -- she remain intubated on the vent -- chest tube are in place -on levophed and epinephrine drip -- monitor in CCU 12/20- she was extubated --on bipap now -- NPO --off Levophed/epinephrine, continue vasopressi n, inotropes with milrinone, -- chest tube remain in place -- she is stable post surgery 12/21-- she is on high flow O2 -- edema --lasix --chest tube in place --- she is hemodynamic stable -- continue monitor in CCU 12/22- she remain on high O2 CXR show worsening pulmonary venous vascular co ngestion. --lasix iv tid -- chest tube are out -- off drips -- NPO -- start TPN -- continue monitor in CCU 12/23- she remain on high flow O2 --less edema -- on TPN -- she is hemodynamic stable -- continue monitor in CVICU 12/24- she get better -- she is out bed and sit on the chair -- start ambulate with PT -- continue current management 12/25- she is doing well with PT remain on o2 continue iv lasix / add diamox continue supportive care continue monitor in CVICU 12/26- she is on bipap -- she remain sob and edema -- may start lasix drip as nurse -- continue supportive care 12/27 On lasix and insulin drips. Back on lantus dose BID, trend glucose. Continue PT/OT. 12/28 Increase lantus BID. 12/29-- she remain on bipap -- sob and edema --lasiv and diamox iv bid -- FS -- better control -- continue monitor in CVICU 12/30- she improve --less sob and edema -- she tolerance diet -- continue lasix -- continue PT/OT 12/31-- less sob and edema - -- ABG -- review -- improve -- continue lasix -- CM --LTAC evaluation 01/01- she improve now --she is on O2 -- NC 2 --lasix 40 mg iv qd -- continue PT/OT -- rehab placement as rehab Electronically Signed by Meryl Rosa MD on 2 at 1708 RPT #:[id number] END OF REPORT 2022-01-01 11:43:00-00:00 [facility] Nephrology Progress Note REPORT#:[id number] REPORT STATUS: Signed DATE:01/01/22 TIME: 1143 PATIENT: SAÚL GILES UNIT #: [id number] ROOM/BED: [place] [id number] : 43 AGE: 76 SEX: F ATTEND: Leah More MD ADM AUTHOR: Suki Fuchs MD * ALL edits or amendments must be made on the [employer]/computer document * Subjective Chief complaint: chest pain HPI: This is a 76-year-old female who has past medica l history of hypertension, diabetes, coronary artery disease, atrial fibril lation who presented with worsening shortness of breath and on further wor k-up was 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 She was with normal kidney function prior to surgery and afte r her surgery she began to develop oliguria. Her procedure was done without any complications but after her surgery she did require pressor support for hypotension and she was intubated for respiratory acidosis and hypoxia a nd she was treated with vancomycin for infection treatment. When she was seen this morning she continued to have hypotension and her heart rate was paced by her permanent pacemaker and her urine outp ut was 20 to 30/h. Her family at bedside denied any history of kidney disease, kidney stone, chronic NSAID use or any urinary complaints. They also endorse that her b lood pressure and diabetes were mostly controlled. 01/01 Today she was comfortable, sitting in chair but said she feels dizzy on standing up. Objective General VS/I O: Vital Signs: Date Time Temp Pulse Resp B/P B/P Pulse O2 O2 F low FiO2 Mean Ox Delivery Rate 01/01 0806 36.6 01/01 0800 98 Nasal 3 cannula 01/01 0736 71 26 169/58 100 93 10 0730 71 27 166/58 98 91 01/01 0715 74 28 157/56 94 94 01/01 0701 157/71 102 01/01 0701 70 26 164/57 97 96 01/01 0700 69 27 164/58 98 96 01/01 0645 76 29 161/58 96 89 01/01 0615 69 30 157/56 95 98 01/01 0600 72 28 161/58 99 87 01/01 0515 71 26 318/318 318 91 01/01 0445 36.3 71 28 145/51 86 90 10/ 0435 79 100 40 / 0430 36.4 73 23 153/59 96 100 / 0415 36.4 69 14 113/38 60 100 10/ 0401 114/53 77 10/ 0401 36.4 69 14 118/38 63 100 10/ 0400 36.4 69 14 121/42 66 100 10/ 0345 36.4 69 16 118/41 65 100 / 0315 36.3 69 16 126/43 70 100 10/20 0300 143/64 92 10/ 0300 36.2 69 15 147/53 86 100 10/20 0245 36.2 69 20 146/54 89 98 10/ 0230 36.3 75 25 150/54 90 90 10/ 0215 36.5 73 30 142/51 85 88 10/ 0200 136/78 99 10/ 0115 36.5 69 16 115/39 63 100 10/20 0100 136/65 93 10/ 0045 36.5 75 28 140/50 83 94 10/ 0015 36.5 71 22 121/44 68 100 10/ 0000 36.5 69 26 126/46 72 100 12/31 2330 36.5 74 34 145/58 89 96 12/31 2300 128/62 89 12/31 2300 36.6 71 22 145/52 84 96 12/31 2245 36.6 71 26 147/54 86 90 12/31 2230 36.6 69 20 130/49 75 100 12/31 2215 36.6 69 20 143/55 85 100 12/31 2200 131/57 82 12/31 2200 36.5 69 21 133/49 73 100 12/31 2145 36.5 69 20 142/50 79 100 12/31 2130 36.4 69 19 152/52 83 100 12/31 2115 36.4 70 28 145/53 82 100 12/31 2101 140/59 85 12/31 2100 36.4 69 29 151/54 87 98 12/31 2046 73 100 40 12/31 2044 36.4 73 31 153/53 85 94 12/31 2014 36.4 69 26 166/57 91 98 01/01 2000 Nasal 2 cannula 01/01 2000 36.4 69 29 162/55 86 98 12/31 1745 36.7 72 29 145/51 80 95 12/31 1730 36.6 75 27 148/48 78 97 12/31 1700 127/60 87 12/31 1700 36.4 74 31 154/52 84 93 12/31 1630 36.3 72 34 150/45 75 93 12/31 1600 129/60 86 12/31 1600 36.2 71 38 149/51 82 90 12/31 1530 36.2 72 151/50 81 95 24 hour I O ending at 0700: 01/01 0700 12/31 1900 Intake Total 400 960 Output Total 850 1350 Balance -450 -390 Intake, Oral 400 960 Output, Urine 850 1350 PATIENT WEIGHT: Weight (lb): 266 Weight (oz): 12.15 Weight (kg): 121.000 Physical Exam General appearance: alert, awake, oriented Head/eyes: atraumatic, normocephalic ENT: moist mucous membranes, normal nose Neck: no JVD, no lymphadenopathy Cardiovascular: normal heart sounds, regular rat e and rhythm Respiratory: aerating well, clear to auscultatio n Abdomen: soft, no pulsatile mass Genitourinary: urinary catheter Extremities: no gangrene, no swelling Treatment Prophylaxis Treatment Prophylaxis Drain(s)/tube(s): Drain(s)/tube(s): chest (x3) Diagnosis, Assessment Plan Free Text A P: This is a 76-year-old female known to have hyper tension, diabetes, atrial fibrillation, s/p permanent pacemaker and histor y of ablation presenting with shortness of breath and found to have multivesse l coronary artery disease therefore she had CABG on December 19 after which she has developed oliguria. Nephrology is following for: 1. Acute kidney injury: Most likely it i s prerenal (cardiorenal), she has been hypotensive postoperatively with require ment for pressor support and inotropic support. Plan is to increase inotropic support or pressor support to bring mean arterial pressure above 65 and give albumin with Lasix to see if it helps him diurese. If he does not respond to higher dose L asix with albumin then I will consider starting him on CRRT to prevent hyper v olemia. 2. Hypervolemia: Plan is to give Lasix a nd if he does not respond to start him on CRRT for extra fluid removal. 3. His electrolytes were all reviewed to be in normal range plan was to monitor and replace as needed. 4. He was receiving vancomycin so plan w as to monitor vancomycin trough levels to prevent ATN. 5/ Metabolic alkalosis secondary to diur etics : Plan to give acetazoleamide if worsening. 12/27 1. Acute kidney injury: Resolved, she is respond ing to lasix. 2. Hypervolemia: Plan to continue lasix as tolerated.Today she was on low dose twice daily lasix. 3. Hypokalemia/hypomagnesemia:secondary to diure tics, plan was to monitor and replace as needed. 4. She was receiving vancomy sanjana so plan was to monitor vancomycin trough levels to prevent ATN. 5/ Metabolic alkalosis secon lilli to diuretics : Plan to give acetazoleamide and monitor closely. 12/28 1. Acute kidney injury: Resolved, she is respond ing to lasix. 2. Hypervolemia: Plan to continue lasix as tolerated.Today she was on low dose twice daily lasix. 3. Hypokalemia/hypomagnesemia:secondary to diure tics, plan was to monitor and replace as needed. 4. She was receiving vancomy sanjana so plan was to monitor vancomycin trough levels to prevent ATN. 5/ Metabolic alkalosis secon lilli to diuretics : Plan to give acetazoleamide and monitor closely. 12/28 1. Acute kidney injury: Resolved, she is respond ing to lasix. 2. Hypervolemia: Plan to continue lasix as tolerated.Today she was on low dose twice daily lasix. 3. Hypokalemia/hypomagnesemia:secondary to diure tics, plan was to monitor and replace as needed. 4. She was receiving vancomy sanjana so plan was to monitor vancomycin trough levels to prevent ATN. 5/ Metabolic alkalosis [place] to diuretics : Plan to give acetazoleamide and monitor closely. 12/29 1. Acute kidney injury: Resolved, she is respond ing to lasix. 2. Hypervolemia: Plan to continue lasix as tolerated.Today she was on low dose twice daily lasix. 3. Hypokalemia/hypomagnesemia:secondary to diure tics, plan was to monitor and replace as needed. 4. She was receiving vancomy sanjana so plan was to monitor vancomycin trough levels to prevent ATN. 5/ Metabolic alkalosis [place] to diuretics : Plan to give acetazoleamide and monitor closely. 12/30 1. Acute kidney injury: Resolved, she is respond ing to lasix. 2. Hypervolemia: Plan to continue lasix as tolerated.Today she was on low dose twice daily lasix. 3. Hypokalemia/hypomagnesemia:secondary to diure tics, plan was to monitor and replace as needed. 4. Metabolic alkalosis secondary to diuretics : Plan to continue acetazoleamide and monitor closely. 12/31 1. Acute kidney injury: Resolved, she is respond ing to lasix. 2. Hypervolemia: Plan to continue lasix as tolerated.Today she was on low dose twice daily lasix. 3. Hypokalemia/hypomagnesemia:secondary to diure tics, plan was to monitor and replace as needed. 4. Metabolic alkalosis secondary to diuretics :I mproved so acetazoleamide reduced. 01/01 1. Acute kidney injury: Resolved, she is respond ing to lasix. 2. Hypervolemia: Plan to continue lasix as tolerated.Today she was on low dose daily lasix with metolazone. 3. Hypokalemia/hypomagnesemia:secondary to diure tics, plan was to monitor and replace as needed. 4. Metabolic alkalosis secondary to diuretics :A cetazoleamide keeping stable.Plan to continue same. 5/ Syncope : Most likely sec ondary to deconditioning but plan to hold diuretics if she is orthostatic. Consultants: cardiology, cardiovascular surgery Electronically Signed by Suki Fuchs MD on at 1511 RPT #:[id number] END OF REPORT 2022-01-01 09:31:00-00:00 [facility] ([facility]) Cardiology Progress Note REPORT#:[id number] REPORT STATUS: Signed DATE:01/01/22 TIME: 930 PATIENT: SAÚL GILES UNIT #: [id number] ROOM/BED: [place] [id number] : 43 AGE: 76 SEX: F ATTEND: Leah More MD ADM AUTHOR: Isabella Clemens PHP MYSQL DEVELOPER * ALL edits or amendments must be made on the [employer]/computer document * Subjective Comments: OOB to chair, awake and alert. Hemodynamically s table. Objective General VS/I O: 24 hour I O ending at 0700: 01/01 0700 12/31 1900 Intake Total 400 960 Output Total 850 1350 Balance -450 -390 Intake, Oral 400 960 Output, Urine 850 1350 Vital Signs: Date Time Temp Pulse Resp B/P B/P Pulse O2 O2 F low FiO2 Mean Ox Delivery Rate 01/01 0806 36.6 01/01 0800 98 Nasal 3 cannula 01/01 0736 71 26 169/58 100 93 01/01 0730 71 27 166/58 98 91 01/01 0715 74 28 157/56 94 94 01/01 0701 157/71 102 01/01 0701 70 26 164/57 97 96 01/01 0700 69 27 164/58 98 96 01/01 0645 76 29 161/58 96 89 01/01 0615 69 30 157/56 95 98 01/01 0600 72 28 161/58 99 87 01/01 0515 71 26 318/318 318 91 01/01 0445 36.3 71 28 145/51 86 90 01/01 0435 79 100 40 01/01 0430 36.4 73 23 153/59 96 100 10/ 0415 36.4 69 14 113/38 60 100 10/ 0401 114/53 77 10/ 0401 36.4 69 14 118/38 63 100 10/ 0400 36.4 69 14 121/42 66 100 10/ 0345 36.4 69 16 118/41 65 100 10/ 0315 36.3 69 16 126/43 70 100 10/20 0300 143/64 92 10/ 0300 36.2 69 15 147/53 86 100 10/ 0245 36.2 69 20 146/54 89 98 10/ 0230 36.3 75 25 150/54 90 90 / 0215 36.5 73 30 142/51 85 88 10/ 0200 136/78 99 10/ 0115 36.5 69 16 115/39 63 100 10/20 0100 136/65 93 10/ 0045 36.5 75 28 140/50 83 94 / 0015 36.5 71 22 121/44 68 100 / 0000 36.5 69 26 126/46 72 100 12/31 2330 36.5 74 34 145/58 89 96 12/31 2300 128/62 89 12/31 2300 36.6 71 22 145/52 84 96 12/31 2245 36.6 71 26 147/54 86 90 12/31 2230 36.6 69 20 130/49 75 100 12/31 2215 36.6 69 20 143/55 85 100 12/31 2200 131/57 82 12/31 2200 36.5 69 21 133/49 73 100 12/31 2145 36.5 69 20 142/50 79 100 12/31 2130 36.4 69 19 152/52 83 100 12/31 2115 36.4 70 28 145/53 82 100 12/31 210 140/59 85 12/31 2100 36.4 69 29 151/54 87 98 12/31 2046 73 100 40 12/31 2044 36.4 73 31 153/53 85 94 12/31 2014 36.4 69 26 166/57 91 98 01/01 2000 Nasal 2 cannula 01/01 2000 36.4 69 29 162/55 86 98 12/31 1745 36.7 72 29 145/51 80 95 12/31 1730 36.6 75 27 148/48 78 97 12/31 1700 127/60 87 12/31 1700 36.4 74 31 154/52 84 93 12/31 1630 36.3 72 34 150/45 75 93 12/31 1600 129/60 86 12/31 1600 36.2 71 38 149/51 82 90 12/31 1530 36.2 72 151/50 81 95 12/31 1500 36.2 72 29 144/48 77 95 12/31 1445 36.2 71 31 143/51 82 97 12/31 1415 36.3 74 34 129/73 96 93 12/31 1400 36.3 75 26 144/49 77 99 12/31 1357 36.3 74 28 142/48 77 100 12/31 1345 36.3 75 22 139/47 73 100 12/31 1330 36.3 73 32 134/46 75 95 12/31 1315 72 29 158/57 89 96 12/31 1300 36.3 69 24 149/50 79 100 12/31 1245 36.3 72 27 142/52 81 98 12/31 1230 36.2 72 35 128/49 75 87 12/31 1215 36.2 75 31 146/48 76 90 12/31 1200 36.2 69 28 137/46 72 93 12/31 1145 36.3 74 28 142/49 77 86 12/31 1130 36.3 73 30 134/46 73 89 12/31 1115 36.4 74 35 142/69 108 89 12/31 1105 101/51 73 12/31 1105 36.5 69 32 154/50 82 92 12/31 1041 70 29 92 12/31 1030 36.3 74 31 132/43 69 91 12/31 1015 36.3 75 24 151/48 78 96 12/31 1000 147/61 88 12/31 1000 36.3 73 41 145/46 74 89 12/31 0945 36.2 72 32 140/45 73 91 PATIENT WEIGHT: Weight (lb): 266 Weight (oz): 12.15 Weight (kg): 121.000 Medications: Active Meds + DC'd Last 24 Hrs Acetazolamide (DIAMOX) 500 MG Q24H IV Furosemide (LASIX 40 mg/4 mL INJECTION) 40 MG DA EMELIA IV Sterile Water (WATER FOR INJECTION) 5 ML ASDIR P RN IV Potassium Chloride (POTASSIUM CHLORIDE 20MEQ TAB .ER) 40 MEQ ONCE ONE PO (DC) Furosemide (LASIX 40 mg/4 mL INJECTION) 40 MG Q2 4H IV (DC) Potassium Chloride (POTASSIUM CHLORIDE 20MEQ TAB .ER) 40 MEQ DAILY PRN PRN PO Insulin Glargine (Lantus/Semglee) 30 UNIT DAILY SUBQ Insulin Glargine (Lantus/Semglee) 20 UNIT BEDTIM E SUBQ Insulin Human Lispro (HUMALOG) 0 AC HS SUBQ Dextrose/Water (DEXTROSE 10% IN WATER) 125 ML DIR PRN IV (CKD) Dextrose/Water (DEXTROSE 10% IN WATER) 250 ML DIR PRN IV (CKD) Glucagon (GLUCAGON) 1 MG ASDIR PRN IM Amiodarone HCl (CORDARONE) 200 MG BID PO Furosemide (LASIX 40 mg/4 mL INJECTION) 40 MG BI D 9A 5P IV (DC) Acetazolamide (DIAMOX) 500 MG Q12HR IV (DC) Sterile Water (WATER FOR INJECTION) 5 ML ASDIR P RN IV Sterile Water (WATER FOR INJECTION) 5 ML ASDIR P RN IV Sodium Chloride (SODIUM CHLORIDE) 4 ML RTBID NEB Melatonin (Melatonin) 3 MG BEDTIME PO Sodium Chloride (SODIUM CHLORIDE) 10 ML BID IV Sodium Chloride (SODIUM CHLORIDE) 10 ML ASDIR NE N IV Pantoprazole (PROTONIX) 40 MG DAILY PO Dexmedetomidine/Sodium Chloride (PRECEDEX 1000MC G/NS 250ML) 250 ML ASDIR IV Bisacodyl (DULCOLAX) 10 MG DAILY PRN PRN RECTAL Lactulose (LACTULOSE) 20 GM DAILY PRN PRN PO Magnesium Hydroxide (MILK OF MAGNESIA) 30 ML PETER LY PRN PRN PO Aspirin (ASPIRIN) 81 MG DAILY PO Clopidogrel Bisulfate (Plavix) 75 MG DAILY PO Cyanocobalamin (Vitamin B-12 500 mcg tab) 500 MC G DAILY PO Ferrous Sulfate (FERROUS SULFATE) 325 MG DAILY P O Metolazone (metOLazone) 5 MG DAILY PO Polyethylene Glycol (MIRALAX) 17 GM DAILY PO Atorvastatin Calcium (LIPITOR) 40 MG 2100 PO Docusate Sodium (DOCUSATE SODIUM) 100 MG BID PO Metoprolol Tartrate (LOPRESSOR) 12.5 MG Q12HR PO Senna (SENOKOT) 17.6 MG BEDTIME PO Acetaminophen (TYLENOL) 650 MG Q4H PRN PRN PO Insulin Human Regular (HumuLIN R) 100 UNIT ASDIR IV (DC) Sodium Chloride (SODIUM CHLORIDE 0.9%) 99 ML Acetylcysteine (MUCOMYST FOR RT) 200 MG RTQ6H NE B Albuterol/Ipratropium (DUONEB) 3 ML RTQ6H NEB Bisacodyl (DULCOLAX) 10 MG ONCE PRN RECTAL Dopamine HCl/Dextrose (DOPamine 400MG/D5W 250ML) 250 ML ASDIR IV Milrinone Lactate/Dextrose (MILRINONE 20MG/D5W 1 00ML) 100 ML ASDIR IV ( CKD) Vasopressin (VASOSTRICT 20 Unit/NS 100ML) 100 ML ASDIR IV (CKD) Acetaminophen (TYLENOL) 650 MG Q4H PRN PRN RECTA L Calcium Chloride (CALCIUM CHLORIDE) 1 GM ASDIR P RN IV Dextrose/Water (DEXTROSE 10% IN WATER) 125 ML DIR PRN IV (DC) Dextrose/Water (DEXTROSE 10% IN WATER) 250 ML DIR PRN IV (DC) Glucagon (GLUCAGON) 1 MG ASDIR PRN IM (DC) Magnesium Sulfate (MAGNESIUM SULFATE 4GM/SWFI 10 0ML) 100 ML ASDIR PRN IV Magnesium Sulfate (MAGNESIUM SULFATE 2GM/SWFI 50 ML) 50 ML ASDIR PRN IV Magnesium Sulfate/Dextrose (MAGNESIUM SULFATE 1G M/D5W 100ML) 100 ML ASDIR PRN IV Nitroglycerin/Dextrose (NITROGLYCERIN 50,000MCG/ D5W 250ML) 250 ML ASDIR IV Norepinephrine Bitartrate (NOREPINEPHRINE 8 MG/N S 250 ML) 250 ML TITRATE IV Potassium Chloride (KCL 20MEQ/SWFI 100ML) 100 ML ASDIR PRN IV Sodium Bicarbonate (SODIUM BICARBONATE) 50 MEQ A SDIR PRN IV Ondansetron HCl (ZOFRAN) 4 MG Q6H PRN PRN IV Pacemaker: permanent Physical Exam General appearance: obese, alert, awake, oriente d ENT: normal nose Neck: no JVD Cardiovascular: CV assessment: pedal edema, regular rate and rh ythm Respiratory: decreased breath sounds, on oxygen, shortness of breath, no distress Abdomen: obese Genitourinary: no flank pain, no urinary cathete r Upper extremity: UE assessment: normal temperature, no edema Lower extremity: LE assessment: edema 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 0 L ABG pH (7.35 - 7.45) 7.380 7.396 7.402 7.445 ABG pCO2 (35.0 - 45 mmHg) 65.2 *H 59.8 *H 57.4 *H 50.2 *H ABG pO2 (80 - 100.0 mmHg) 98.3 75.7 L 45.7 *L 41.6 *L ABG PO2/FiO2 Ratio (mm/Hg) 245.75 142.81 173.33 ABG HCO3 (22.0 - 26.0 MMOL/L) 38.8 *H 36.9 *H 3 5.9 *H 34.7 *H ABG Total CO2 40.8 38.8 37.7 36.3 ABG Base Excess (-4.0 - 4.0 MMOL/L) 13.5 H 11.9 H 11.0 H 10.5 H ABG Hematocrit (33.0 - 45.0 %) 24 L 26 L 27 L 28 L ABG Hemoglobin (11.0 - 15.0 G/DL) 8.1 L 8.7 L 9 .3 L 9.4 L Martin Test N/A N/A Sodium (134 - 147 MEQ/L) 143 143 142 143 Potassium (3.4 - 5.0 MEQ/L) 3.4 3.1 L 3.5 3.5 Chloride (100 - 108 MEQ/L) 93 L 96 L 95 L 96 L Ionized Calcium (1.12 - 1.32 MMOL/L) 1.33 H 1.3 3 H 1.33 H 1.32 Lactic Acid (0.9 - 1.7 mmol/l) 0.4 L 1.0 1.0 0. 8 L Temperature (F) 97.7 97.5 97.3 97.2 O2 Delivery Device BiPAP Cannula Vent Rate (/MIN) 20 FiO2 (%) 40 32 24 Tidal Volume (ml) 450 PEEP (cmH2O) 8 Pressure Support (cmH2O) 18 Laboratory Tests 01/01 01/01 01/01 12/31 12/31 0841 0330 328 2017 1628 Chemistry Sodium (134 - 147 mEq/L) 141 Potassium (3.4 - 5.0 mEq/L) 3.5 Chloride (100 - 108 mEq/L) 102 Carbon Dioxide (21 - 33 mEq/l) 37 H Anion Gap (0 - 20) 6 BUN (7 - 18 mg/dL) 28 H Creatinine (0.6 - 1.3 mg/dL) 1.0 POC Creatinine (0.6 - 1.0 mg/dL) 1.2 H 1.1 H 0. 9 Glomerular Filtr Rate (70 - 80) 53.6 L Glucose (70 - 110 mg/dL) 95 POC Glucose (70 - 110 MG/DL) 95 POC Glucose (mg/dL) (70 - 110 MG/DL) 90 190 H 313 H Calcium (8.0 - 10.5 mg/dL) 9.5 Magnesium (1.80 - 2.40 mg/dL) 1.92 12/31 12/31 1216 0945 Chemistry POC Creatinine (0.6 - 1.0 mg/dL) 0.8 POC Glucose (70 - 110 MG/DL) 149 H POC Glucose (mg/dL) (70 - 110 MG/DL) 175 H Laboratory Tests 01/01 0330 Hematology WBC (4.5 - 11.0 x10 3/uL) 9.4 RBC (3.54 - 5.02 x10 6/uL) 2.11 L Hgb (11.0 - 15.0 g/dL) 7.5 L Hct (33.0 - 45.0 %) 23.2 L MCV (81.0 - 99.0 fL) 110.0 H MCH (27.0 - 33.0 pg) 35.5 H MCHC (33.0 - 37.0 g/dL) 32.3 L RDW (11.5 - 14.5 %) 16.9 H Plt Count (150 - 400 x10 3/uL) 245 MPV (7.0 - 9.0 fL) 10.8 H Neut % (Auto) (56.0 - 77.0 %) 83.5 H Lymph % (Auto) (14.0 - 32.0 %) 6.1 L Barron % (Auto) (4.8 - 9.0 %) 7.0 Eos % (Auto) (0.3 - 3.7 %) 1.4 Baso % (Auto) (0.0 - 2.0 %) 0.2 Neut # (Auto) (2.0 - 7.6 x10 3/uL) 7.84 H Lymph # (Auto) (1.0 - 3.8 x10 3/uL) 0.57 L Barron # (Auto) (0.1 - 0.8 x10 3/uL) 0.66 Eos # (Auto) (0.0 - 0.2 x10 3/uL) 0.13 Baso # (Auto) (0.0 - 0.2 x10 3/uL) 0.02 Abs Immat Gran (auto) (0.00 - 0.03 x10 3/uL) 0. 17 H Add Manual Diff NO Immature Gran % (0.0 - 2.0 %) 1.8 Nucleated RBC % (0 - 0 %) 0.7 H Nucleated RBCs # (Man) (0.0 - 0.1 x10 3/uL) 0.0 7 Laboratory Tests 01/01 0330 Chemistry Magnesium (1.80 - 2.40 mg/dL) 1.92 Radiology data: Recent Impressions: RADIOLOGY - XR CHEST 1 V 01/01 0642 Report Impression - Status: SIGNED Entered: 01/01/2022 0702 IMPRESSION: Stable exam. Bilateral pulmonary opacities likel y combination of airspace disease and atelectasis. Bilateral pleu ral effusions. Stable postoperative cardiomediastinal silhouett e. Impression By: Catherine Carlisle M.D. Telemetry Interpretation: paced Diagnosis, Assessment Plan Plan discussed with: patient, daughter Free Text DxA P Notes Free Text DxA P Notes: Ms Giles is a 76 y/o Femal w / PMHx: CAD, HLD, T2DM, RONA (CPAP at home), smoker, Crohn's disease, AF s/p ablation (on Xarelto), s /p PPM and lymphedema. Dr. Fortune is consulted for CAD s/p CABG, MVR. - CAD s/p CABG, MVR, and ILAA. post-op per CTS and critical care On Plavix, aspirin, beta-delma, statin volume management per Nephrology negative fluid balance - Chr AF s/p PPM/ablation. Rate controlled, pace d rhythm. had ILAA during bypass - HTN. BP high, increase metoprolol tartrate to 25 mg BID - HLD. On statins. - Crohn's disease. Per IM. -MARCELLO - resolving per Nephrology -Resp insufficiency on BIPAP/high flow NC as tolerated per critical care -Diastolic CHF/volume overload diuretic management per nephrology/CTS Slowly improving continue supportive care PT/OT as tolerated at 1428 Electronically Signed by Aruna Fortune MD on at 1857 RPT #:[id number] END OF REPORT 2022-01-01 09:18:00-00:00 [facility] REPORT#:[id number] REPORT STATUS: Signed DATE:01/01/22 TIME: 917 PATIENT: SAÚL GIELS UNIT #: [id number] ROOM/BED: [place] [address] : 43 AGE: 76 SEX: F ATTEND: Leah More MD ADM AUTHOR: Jd Alva MD * ALL edits or amendments must be made on the [employer]/computer document * Subjective Chief complaint: CABG/MVR HPI: 76-year-old morbidly obese f emale with history of HTN, HL, IDDM, smoking, RONA on CPAP and home O2 as needed, macular degeneration , Crohn's disease on immunosuppressant medication s, and chronic Afib s/p ablation and PPM (on Xarelto ), who was admitted recently with heart failure symptoms. Patient underwent elective cardiac cath that s howed severe multivessel coronary artery disease not suitable for percutaneous intervention. 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 She went for surgical revascularization today and preop JORDEN revealed severe mitral regurgitation. After discussing new findings with family, patient underwent MVR (31 M agna valve), CABG x 1 (ROBERTS-LAD), ILAA and pericardectomy on 12/19/2021. Has EF of 45%. Crystalloid 1 L, urine output 700, Cell Saver 700. She is a-paced at b [facility]. Surgery went well and patient was transferred to CVICU pos top in a stable surgical condition. She is currently intubated on 2 mics of epine phrine, 2 mics of Levophed and insulin drip. CI 3.0, SvO2 in 60%s, CVP 15 and PAP in 60s. Comments: Out of bed in the chair Remains on oxygen via NC Urine output 850 cc No new complaints reported Objective General VS/I O Last Documented: Result Date Time Temp 97.9 01/01 806 Pulse Ox 93 01/02 736 B/P 169/58 01/02 736 B/P Mean 100 01/02 736 Pulse 71 01/02 736 Resp 26 01/02 736 FiO2 40 01/01 0435 O2 Delivery Nasal cannula 01/01 2000 O2 Flow Rate 2 01/01 2000 24 hour I O ending at 0700: 01/01 0700 12/31 1900 Intake Total 400 960 Output Total 850 1350 Balance -450 -390 Intake, Oral 400 960 Output, Urine 850 1350 PATIENT WEIGHT: Weight (lb): 266 Weight (oz): 12.15 Weight (kg): 121.000 Medications: Active Meds + DC'd Last 24 Hrs Acetazolamide (DIAMOX) 500 MG Q24H IV Furosemide (LASIX 40 mg/4 mL INJECTION) 40 MG DA EMELIA IV Sterile Water (WATER FOR INJECTION) 5 ML ASDIR P RN IV Potassium Chloride (POTASSIUM CHLORIDE 20MEQ TAB .ER) 40 MEQ ONCE ONE PO (DC) Furosemide (LASIX 40 mg/4 mL INJECTION) 40 MG Q2 4H IV (DC) Potassium Chloride (POTASSIUM CHLORIDE 20MEQ TAB .ER) 40 MEQ DAILY PRN PRN PO Insulin Glargine (Lantus/Semglee) 30 UNIT DAILY SUBQ Insulin Glargine (Lantus/Semglee) 20 UNIT BEDTIM E SUBQ Insulin Human Lispro (HUMALOG) 0 AC HS SUBQ Dextrose/Water (DEXTROSE 10% IN WATER) 125 ML DIR PRN IV (CKD) Dextrose/Water (DEXTROSE 10% IN WATER) 250 ML DIR PRN IV (CKD) Glucagon (GLUCAGON) 1 MG ASDIR PRN IM Amiodarone HCl (CORDARONE) 200 MG BID PO Furosemide (LASIX 40 mg/4 mL INJECTION) 40 MG BI D 9A 5P IV (DC) Acetazolamide (DIAMOX) 500 MG Q12HR IV (DC) Sterile Water (WATER FOR INJECTION) 5 ML ASDIR P RN IV Sterile Water (WATER FOR INJECTION) 5 ML ASDIR P RN IV Sodium Chloride (SODIUM CHLORIDE) 4 ML RTBID NEB Melatonin (Melatonin) 3 MG BEDTIME PO Sodium Chloride (SODIUM CHLORIDE) 10 ML BID IV Sodium Chloride (SODIUM CHLORIDE) 10 ML ASDIR NE N IV Pantoprazole (PROTONIX) 40 MG DAILY PO Dexmedetomidine/Sodium Chloride (PRECEDEX 1000MC G/NS 250ML) 250 ML ASDIR IV Bisacodyl (DULCOLAX) 10 MG DAILY PRN PRN RECTAL Lactulose (LACTULOSE) 20 GM DAILY PRN PRN PO Magnesium Hydroxide (MILK OF MAGNESIA) 30 ML PETER LY PRN PRN PO Aspirin (ASPIRIN) 81 MG DAILY PO Clopidogrel Bisulfate (Plavix) 75 MG DAILY PO Cyanocobalamin (Vitamin B-12 500 mcg tab) 500 MC G DAILY PO Ferrous Sulfate (FERROUS SULFATE) 325 MG DAILY P O Metolazone (metOLazone) 5 MG DAILY PO Polyethylene Glycol (MIRALAX) 17 GM DAILY PO Atorvastatin Calcium (LIPITOR) 40 MG 2100 PO Docusate Sodium (DOCUSATE SODIUM) 100 MG BID PO Metoprolol Tartrate (LOPRESSOR) 12.5 MG Q12HR PO Senna (SENOKOT) 17.6 MG BEDTIME PO Acetaminophen (TYLENOL) 650 MG Q4H PRN PRN PO Insulin Human Regular (HumuLIN R) 100 UNIT ASDIR IV (DC) Sodium Chloride (SODIUM CHLORIDE 0.9%) 99 ML Acetylcysteine (MUCOMYST FOR RT) 200 MG RTQ6H NE B Albuterol/Ipratropium (DUONEB) 3 ML RTQ6H NEB Bisacodyl (DULCOLAX) 10 MG ONCE PRN RECTAL Dopamine HCl/Dextrose (DOPamine 400MG/D5W 250ML) 250 ML ASDIR IV Milrinone Lactate/Dextrose (MILRINONE 20MG/D5W 1 00ML) 100 ML ASDIR IV ( CKD) Vasopressin (VASOSTRICT 20 Unit/NS 100ML) 100 ML ASDIR IV (CKD) Acetaminophen (TYLENOL) 650 MG Q4H PRN PRN RECTA L Calcium Chloride (CALCIUM CHLORIDE) 1 GM ASDIR P RN IV Dextrose/Water (DEXTROSE 10% IN WATER) 125 ML DIR PRN IV (DC) Dextrose/Water (DEXTROSE 10% IN WATER) 250 ML DIR PRN IV (DC) Glucagon (GLUCAGON) 1 MG ASDIR PRN IM (DC) Magnesium Sulfate (MAGNESIUM SULFATE 4GM/SWFI 10 0ML) 100 ML ASDIR PRN IV Magnesium Sulfate (MAGNESIUM SULFATE 2GM/SWFI 50 ML) 50 ML ASDIR PRN IV Magnesium Sulfate/Dextrose (MAGNESIUM SULFATE 1G M/D5W 100ML) 100 ML ASDIR PRN IV Nitroglycerin/Dextrose (NITROGLYCERIN 50,000MCG/ D5W 250ML) 250 ML ASDIR IV Norepinephrine Bitartrate (NOREPINEPHRINE 8 MG/N S 250 ML) 250 ML TITRATE IV Potassium Chloride (KCL 20MEQ/SWFI 100ML) 100 ML ASDIR PRN IV Sodium Bicarbonate (SODIUM BICARBONATE) 50 MEQ A SDIR PRN IV Ondansetron HCl (ZOFRAN) 4 MG Q6H PRN PRN IV Results Findings/data: Laboratory Tests 01/01 12/31 12/31 12/31 0329 2017 8461 9025 Blood Gas Puncture Site Art Line Art Line Art Line Art Li ne O2 Saturation (90 - 100 %) 97.3 94.9 81.8 L 80. 0 L ABG pH (7.35 - 7.45) 7.380 7.396 7.402 7.445 ABG pCO2 (35.0 - 45 mmHg) 65.2 *H 59.8 *H 57.4 *H 50.2 *H ABG pO2 (80 - 100.0 mmHg) 98.3 75.7 L 45.7 *L 4 1.6 *L ABG PO2/FiO2 Ratio (mm/Hg) 245.75 142.81 173.33 ABG HCO3 (22.0 - 26.0 MMOL/L) 38.8 *H 36.9 *H 35.9 *H 34.7 *H ABG Total CO2 40.8 38.8 37.7 36.3 ABG Base Excess (-4.0 - 4.0 MMOL/L) 13.5 H 11.9 H 11.0 H 10.5 H ABG Hematocrit (33.0 - 45.0 %) 24 L 26 L 27 L 2 8 L ABG Hemoglobin (11.0 - 15.0 G/DL) 8.1 L 8.7 L 9 .3 L 9.4 L Martin Test N/A N/A Sodium (134 - 147 MEQ/L) 143 143 142 143 Potassium (3.4 - 5.0 MEQ/L) 3.4 3.1 L 3.5 3.5 Chloride (100 - 108 MEQ/L) 93 L 96 L 95 L 96 L Ionized Calcium (1.12 - 1.32 MMOL/L) 1.33 H 1.3 3 H 1.33 H 1.32 Lactic Acid (0.9 - 1.7 mmol/l) 0.4 L 1.0 1.0 0. 8 L Temperature (F) 97.7 97.5 97.3 97.2 O2 Delivery Device BiPAP Cannula Vent Rate (/MIN) 20 FiO2 (%) 40 32 24 Tidal Volume (ml) 450 PEEP (cmH2O) 8 Pressure Support (cmH2O) 18 Laboratory Tests 01/01 01/01 01/01 12/31 12/31 0841 329 328 2017 1628 Chemistry Sodium (134 - 147 mEq/L) 141 Potassium (3.4 - 5.0 mEq/L) 3.5 Chloride (100 - 108 mEq/L) 102 Carbon Dioxide (21 - 33 mEq/l) 37 H Anion Gap (0 - 20) 6 BUN (7 - 18 mg/dL) 28 H Creatinine (0.6 - 1.3 mg/dL) 1.0 POC Creatinine (0.6 - 1.0 mg/dL) 1.2 H 1.1 H 0 .9 Glomerular Filtr Rate (70 - 80) 53.6 L Glucose (70 - 110 mg/dL) 95 POC Glucose (70 - 110 MG/DL) 95 POC Glucose (mg/dL) (70 - 110 MG/DL) 90 190 H 3 13 H Calcium (8.0 - 10.5 mg/dL) 9.5 Magnesium (1.80 - 2.40 mg/dL) 1.92 12/31 12/31 1216 0945 Chemistry POC Creatinine (0.6 - 1.0 mg/dL) 0.8 POC Glucose (70 - 110 MG/DL) 149 H POC Glucose (mg/dL) (70 - 110 MG/DL) 175 H Laboratory Tests 01/01 0330 Hematology WBC (4.5 - 11.0 x10 3/uL) 9.4 RBC (3.54 - 5.02 x10 6/uL) 2.11 L Hgb (11.0 - 15.0 g/dL) 7.5 L Hct (33.0 - 45.0 %) 23.2 L MCV (81.0 - 99.0 fL) 110.0 H MCH (27.0 - 33.0 pg) 35.5 H MCHC (33.0 - 37.0 g/dL) 32.3 L RDW (11.5 - 14.5 %) 16.9 H Plt Count (150 - 400 x10 3/uL) 245 MPV (7.0 - 9.0 fL) 10.8 H Neut % (Auto) (56.0 - 77.0 %) 83.5 H Lymph % (Auto) (14.0 - 32.0 %) 6.1 L Barron % (Auto) (4.8 - 9.0 %) 7.0 Eos % (Auto) (0.3 - 3.7 %) 1.4 Baso % (Auto) (0.0 - 2.0 %) 0.2 Neut # (Auto) (2.0 - 7.6 x10 3/uL) 7.84 H Lymph # (Auto) (1.0 - 3.8 x10 3/uL) 0.57 L Barron # (Auto) (0.1 - 0.8 x10 3/uL) 0.66 Eos # (Auto) (0.0 - 0.2 x10 3/uL) 0.13 Baso # (Auto) (0.0 - 0.2 x10 3/uL) 0.02 Abs Immat Gran (auto) (0.00 - 0.03 x10 3/uL) 0. 17 H Add Manual Diff NO Immature Gran % (0.0 - 2.0 %) 1.8 Nucleated RBC % (0 - 0 %) 0.7 H Nucleated RBCs # (Man) (0.0 - 0.1 x10 3/uL) 0.0 7 Laboratory Tests 01/01/22 0330: [Embedded Image Not Available] Radiology data Recent Impressions: RADIOLOGY - XR CHEST 1 V 01/01 0642 Report Impression - Status: SIGNED Entered: 01/01/2022 0702 IMPRESSION: Stable exam. Bilateral pulmonary opacities likel y combination of airspace disease and atelectasis. Bilateral pleu ral effusions. Stable postoperative cardiomediastinal silhouett e. Impression By: Catherine Carlisle M.D. 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 S/P MVR (mitral valve replacement) 2. S/P CABG x 1 3. Postoperative pulmonary dysfunction after ca rdiac surgery 4. Severe mitral regurgitation 5. CAD (coronary artery disease) 6. CKD (chronic kidney disease) 7. Immunosuppressed status 8. RONA on CPAP 9. Chronic a-fib 10. Crohn disease Free text A P: 76-year-old morbidly obese f emale with history of HTN, HL, IDDM, smoking, RONA on CPAP and home O2 as needed, macular degeneration , Crohn's disease on immunosuppressant medication s, and chronic Afib s/p ablation and PPM (on Xarelto ), who was admitted recently with heart failure symptoms. Patient underwent elective cardiac cath that s howed severe multivessel coronary artery disease not suitable for percutaneous intervention. 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 She went for surgical revascularization today and preop JORDEN revealed severe mitral regurgitation. After discussing new findings with family, patient underwent MVR (31 M agna valve), CABG x 1 (ROBERTS-LAD), ILAA and pericardectomy on 12/19/2021. Has EF of 45%. Crystalloid 1 L, urine output 700, Cell Saver 700. She is a-paced at [facility]. Surgery went well and patient was transferred to CVICU pos top in a stable surgical condition. She is currently intubated on 2 mics of epine phrine, 2 mics of Levophed and insulin drip. CI 3.0, SvO2 in 60%s, CVP 15 and PAP in 60s. Remains neuro intact, multimodal pain control, a void opiates Patient is on BiPAP at night for underlying RONA home CPAP as needed -. She is on nasal cannula [address] shows worsening pulmonary edema and a telectasis. Also has pleural effusions ultrasound not a big pocket to safely tap. Duo nebs and Mucomyst. Encourage incentive laz metry. Family at bedside during spirometry with her. Patient is being diuresed with Lasix twice daily and Diamox twice daily. She does have respiratory acidos is with metabolic alkalosis which is balanced with a pH of 7.39. Renal following White count is stable. No signs of infection or fever. Continue to monitor. Hemoglobin is stable. Continue beta-delma and amiodarone. Paced rhyt hm Patient is on insulin drip for control of her quintana gars. Increase Lantus to 30 twice daily. Patient still has [place] for accurate ins and out s Total critical care time 40 minutes 12/29 Waxing and waning mental status, continue melato andrzej at bedtime Continue supplemental oxygen and titrate FiO2 to keep saturation more than 90%, on 6 L nasal cannula, alternating with BiPAP 18/ 7 and 30% Continue follow ABGs and chest x-rays Inhaled bronchodilators as needed Encourage incentive spirometry White count is stable. No signs of infection or fever. Continue to monitor. Hemoglobin is stable. Continue beta-delma and amiodarone. Diuresis with Bumex 500 mg every 12 hours. Recei laury 1 dose of Lasix IV x1 earlier in the morning Monitor kidney function and trend creatinine Monitor and replete electrolytes Strict I O's Cardiac diet with bowel regimen Decreased Lantus insulin to 20 5 in the morning and 20 at night Continue monitoring blood glucose VTE prophylaxis Stress ulcer prophylaxis Discussed with ICU team, CV surgery and daughter Critical care time 39 minutes 12/30 Neuro status appears at base line, avoid narcotics and sedatives, monitor for CO2 narcosis Sats well on HFNC, wean O2 for goal sats in high 80s, obtain ABG as needed, BiPAP use for uncompensated hypercapnia, CXR and CT chest reviewed Blood pressures appear controlled, continue card iac medications Creatinine appears stable, continue diuresis, mo nitor urine output Tolerating oral diet, has BM/BR, replete hypokal emia No fevers or leukocytosis, completed antibiotic course for UTI Hemoglobin low but stable, no evidence of active bleed Blood glucose control with SSI and Lantus Encourage PT/OT and out of bed as tolerated, vicki n for IPR DVT and GI prophylaxis with DAPT and PPI 12/31 Neuro intact, avoid narcotics and sedatives, mon itor for CO2 narcosis Sats drops on RA, keep NC for goal sats in high 80s, ABG and BiPAP as needed, CXR reviewed Blood pressures appear controlled, continue card iac medications, on BB, amiodarone and statin Creatinine remains stable, good urine output, co ntinue diuresis per renal Tolerating oral diet, bowel regimen, nutrition s upport, replete hypokalemia No fevers or leukocytosis, completed antibiotic course for UTI Hemoglobin appears stable, no evidence of active bleed Blood glucose control with SSI and Lantus Encourage PT/OT and out of bed as tolerated, vicki n for IPR DVT and GI prophylaxis with DAPT and PPI 01/01 remains neuro intact, avoid narcotics and sedati ves, monitor for CO2 narcosis Sats well on NC, on home O2, goal sats i n high 80s, has chronic CO2 retention, use BiPAP as needed, remove art line, ABG and CX R reviewed BP fairly controlled, adjust anti-HTN medication s, increase BB dose Creatinine remains stable, good urine output, co ntinue diuresis per renal Tolerating oral diet, bowel regimen, replete hyp okalemia and hypomagnesemia No fevers or leukocytosis, treated for UTI, curr ently off Abx Hemoglobin appears stable, no evidence of active bleeding Blood glucose control with SSI and Lantus, will continue Encourage PT/OT and out of bed as tolerated, vicki n for IPR vs SNF DVT and GI prophylaxis with DAPT and PPI Consultants: cardiology, cardiovascular surgery Plan discussed with: patient , consultants, nurse, interdisc care team, pharmacy/ pharmacist Critical care time: Minutes: 35 Electronically Signed by Jd Alva MD on 12/14 at 2241 RPT #:[id number] END OF REPORT 2021-12-31 13:01:00-00:00 [facility] ([facility] Hospitalist Progress Note REPORT#:[id number] REPORT STATUS: Signed DATE:12/31/21 TIME: 1301 PATIENT: SAÚL GILES UNIT #: [id number] ROOM/BED: 2205-1 : 43 AGE: 76 SEX: F ATTEND: Leah More MD ADM AUTHOR: Meryl Rosa MD * ALL edits or amendments must be made on the [employer]/computer document * Subjective Chief complaint: she remain on high flow O2 less sob and edema acute respiratory failure --post CABG HPI: 76 years old female with PMH of macular degeneration, obesity, obstructive sleep apnea (CPAP at home), former smoker, hypertensio n, hyperlipidemia, diabetes, Crohn's disease, chronic atr ial fibrillation status post 3 ablations in the past (on Xarelto), pacemaker plac ement is admitted to the hospital post cardiac cath . she need CABG . she had sob for years . sob go t worse . she was admitted to the hospital in [place] . she had cath 3 we eks ago . she was reffered to here for stents placement . she had cath yesterd ay . it show multiple vessels CAD . she is recommend CABG . she still feel sob . no cp no nausea no vomiting no fever no abdominal pain no dizziness . Review of Systems Constitutional: Reports: fatigue, generalized weakness. Denies: fever, lethargy. Respiratory: Reports: SOB. Denies: wheezing. Cardiovascular: Reports: DOUGLASS (dyspnea on exertion), edema. Denie s: chest pain, orthopnea, palpitations. GI: Denies: abdominal pain, nausea, vomiting. Neuro: Denies: dizziness. Objective General VS/I O: Vital Signs: Date Time Temp Pulse Resp B/P B/P Pulse O2 O2 F low FiO2 Mean Ox Delivery Rate 12/31 844 36.2 72 28 142/46 76 82 01/01 0830 36.2 72 36 133/51 79 92 01/01 0815 36.1 75 27 141/49 78 97 12/31 0810 2 01/01 800 112/74 89 01/01 800 36.0 69 24 144/51 82 100 10/19 0754 99 High flow 3 32 nasal cannula 10/19 0745 36.0 69 26 143/50 81 99 10/19 0730 36.0 80 33 134/44 71 86 10/19 0715 36.1 71 29 140/48 77 90 10/19 0700 111/59 80 10/19 0700 36.0 71 29 136/42 70 83 10/19 0645 36.0 69 21 135/45 73 97 10/19 0630 36.0 71 35 142/52 80 100 10/19 0615 36.0 83 36 137/49 78 98 10/19 0600 124/59 85 10/19 0600 36.0 72 39 148/49 80 91 10/19 0545 73 31 340/340 340 10/19 0530 36.0 73 30 129/43 71 88 10/19 0515 36.1 70 24 134/46 75 92 10/19 0500 126/60 87 10/19 0500 36.1 69 21 146/50 82 100 10/19 0445 36.1 72 19 132/47 75 100 10/19 0440 72 100 40 10/19 0430 36.1 70 23 119/42 66 100 10/19 0415 36.0 72 22 108/37 57 98 10/19 0401 113/85 97 10/19 0401 36.0 75 26 145/55 84 100 10/19 0400 36.0 75 22 139/54 83 100 10/19 0345 36.0 72 29 96 10/19 0330 36.0 71 26 65/58 61 97 10/19 0315 36.1 73 24 65/57 62 87 10/19 0300 119/58 84 10/19 0300 36.2 72 44 77/60 69 96 10/19 0245 36.3 73 31 76/60 68 90 10/19 0230 36.2 75 14 109/43 65 100 10/19 0215 36.2 74 14 114/44 68 100 10/19 0200 122/56 81 10/19 0200 36.2 75 22 123/46 73 97 10/19 0145 36.2 72 34 105/52 72 97 10/19 0130 36.3 75 23 126/51 77 100 10/19 0115 36.2 74 22 100/44 62 98 10/19 0100 123/60 86 10/19 0100 36.2 75 22 122/51 76 100 10/19 0045 36.1 71 29 121/46 72 98 12/31 0030 36.2 74 25 127/45 73 93 12/31 0015 36.2 73 28 122/44 70 92 12/31 0001 125/57 82 12/31 0001 36.3 76 20 128/49 78 100 12/31 0000 36.3 75 18 130/51 80 100 12/30 2345 36.3 74 21 121/46 73 100 12/30 2330 36.3 72 27 126/49 77 100 12/30 2315 36.3 73 21 130/49 77 100 12/30 2301 139/63 91 12/30 2301 36.3 75 37 123/46 74 89 12/30 2300 36.4 75 27 126/46 73 94 12/30 2245 36.3 75 16 110/39 60 100 12/30 2230 36.3 75 15 115/41 63 100 12/30 2215 36.2 74 16 111/37 58 98 12/30 2201 149/70 84 12/30 2201 36.2 75 24 137/45 72 100 12/30 2200 36.2 75 22 139/44 73 100 12/30 2145 36.2 69 24 141/45 75 97 12/30 2130 36.2 73 21 133/38 63 100 12/30 2125 110/59 69 12/30 2125 36.2 73 30 142/42 73 100 12/30 2114 36.1 72 37 140/41 70 100 12/30 2100 36.0 73 29 139/45 77 12/30 2056 74 100 40 12/30 2044 36.0 71 34 141/48 80 99 12/31 2043 88 Nasal 2 cannula 12/30 2029 35.9 75 26 132/42 69 91 12/30 2014 36.0 70 26 136/42 71 90 12/31 1999 36.8 12/31 1999 Nasal 2 cannula 12/31 1999 36.0 72 26 136/45 74 89 12/30 1944 36.1 72 32 134/46 75 90 12/30 1929 36.1 73 32 132/47 74 91 12/30 1914 36.1 71 25 139/45 74 100 12/30 190 36.1 73 28 142/48 77 98 24 hour I O ending at 0700: 12/31 0700 10/18 1900 Intake Total 450.00 1250 Output Total 1400 1850 Balance -950.00 -600 Intake, IV 100.00 Intake, Oral 350 1250 Output, Urine 1400 1850 Patient 121 kg Weight Weight Standing scale Measurement Method PATIENT WEIGHT: Weight (lb): 266 Weight (oz): 12.15 Weight (kg): 121.000 Medications: Active Meds + DC'd Last 24 Hrs Acetazolamide (DIAMOX) 500 MG Q24H IV Sterile Water (WATER FOR INJECTION) 5 ML ASDIR P RN IV Furosemide (LASIX 40 mg/4 mL INJECTION) 40 MG Q 24H IV Potassium Chloride (POTASSIUM CHLORIDE 20MEQ TAB .ER) 40 MEQ ONCE ONE PO (DC) Potassium Chloride (POTASSIUM CHLORIDE 20MEQ TAB .ER) 40 MEQ DAILY PRN PRN PO Potassium Chloride (K-JN 20 MEQ PACKET) 40 MEQ NOW ONE FEED-TUBE (DC) Insulin Glargine (Lantus/Semglee) 30 UNIT DAILY SUBQ Insulin Glargine (Lantus/Semglee) 20 UNIT BEDTIM E SUBQ Insulin Human Lispro (HUMALOG) 0 AC HS SUBQ Dextrose/Water (DEXTROSE 10% IN WATER) 125 ML DIR PRN IV (CKD) Dextrose/Water (DEXTROSE 10% IN WATER) 250 ML DIR PRN IV (CKD) Glucagon (GLUCAGON) 1 MG ASDIR PRN IM Amiodarone HCl (CORDARONE) 200 MG BID PO Furosemide (LASIX 40 mg/4 mL INJECTION) 40 MG BI D 9A 5P IV (DC) Acetazolamide (DIAMOX) 500 MG Q12HR IV (DC) Sterile Water (WATER FOR INJECTION) 5 ML ASDIR P RN IV Sterile Water (WATER FOR INJECTION) 5 ML ASDIR P RN IV Sodium Chloride (SODIUM CHLORIDE) 4 ML RTBID NEB Melatonin (Melatonin) 3 MG BEDTIME PO Sodium Chloride (SODIUM CHLORIDE) 10 ML BID IV Sodium Chloride (SODIUM CHLORIDE) 10 ML ASDIR NE N IV Pantoprazole (PROTONIX) 40 MG DAILY PO Dexmedetomidine/Sodium Chloride (PRECEDEX 1000MC G/NS 250ML) 250 ML ASDIR IV Bisacodyl (DULCOLAX) 10 MG DAILY PRN PRN RECTAL Lactulose (LACTULOSE) 20 GM DAILY PRN PRN PO Magnesium Hydroxide (MILK OF MAGNESIA) 30 ML PETER LY PRN PRN PO Aspirin (ASPIRIN) 81 MG DAILY PO Clopidogrel Bisulfate (Plavix) 75 MG DAILY PO Cyanocobalamin (Vitamin B-12 500 mcg tab) 500 MC G DAILY PO Ferrous Sulfate (FERROUS SULFATE) 325 MG DAILY P O Metolazone (metOLazone) 5 MG DAILY PO Polyethylene Glycol (MIRALAX) 17 GM DAILY PO Atorvastatin Calcium (LIPITOR) 40 MG 2100 PO Docusate Sodium (DOCUSATE SODIUM) 100 MG BID PO Metoprolol Tartrate (LOPRESSOR) 12.5 MG Q12HR PO Senna (SENOKOT) 17.6 MG BEDTIME PO Acetaminophen (TYLENOL) 650 MG Q4H PRN PRN PO Insulin Human Regular (HumuLIN R) 100 UNIT ASDIR IV (DC) Sodium Chloride (SODIUM CHLORIDE 0.9%) 99 ML Acetylcysteine (MUCOMYST FOR RT) 200 MG RTQ6H NE B Albuterol/Ipratropium (DUONEB) 3 ML RTQ6H NEB Bisacodyl (DULCOLAX) 10 MG ONCE PRN RECTAL Dopamine HCl/Dextrose (DOPamine 400MG/D5W 250ML) 250 ML ASDIR IV Milrinone Lactate/Dextrose (MILRINONE 20MG/D5W 1 00ML) 100 ML ASDIR IV ( CKD) Vasopressin (VASOSTRICT 20 Unit/NS 100ML) 100 ML ASDIR IV (CKD) Acetaminophen (TYLENOL) 650 MG Q4H PRN PRN RECTA L Calcium Chloride (CALCIUM CHLORIDE) 1 GM ASDIR P RN IV Dextrose/Water (DEXTROSE 10% IN WATER) 125 ML DIR PRN IV (CKD) Dextrose/Water (DEXTROSE 10% IN WATER) 250 ML DIR PRN IV (CKD) Glucagon (GLUCAGON) 1 MG ASDIR PRN IM Magnesium Sulfate (MAGNESIUM SULFATE 4GM/SWFI 10 0ML) 100 ML ASDIR PRN IV Magnesium Sulfate (MAGNESIUM SULFATE 2GM/SWFI 50 ML) 50 ML ASDIR PRN IV Magnesium Sulfate/Dextrose (MAGNESIUM SULFATE 1G M/D5W 100ML) 100 ML ASDIR PRN IV Nitroglycerin/Dextrose (NITROGLYCERIN 50,000MCG/ D5W 250ML) 250 ML ASDIR IV Norepinephrine Bitartrate (NOREPINEPHRINE 8 MG/N S 250 ML) 250 ML TITRATE IV Potassium Chloride (KCL 20MEQ/SWFI 100ML) 100 ML ASDIR PRN IV Sodium Bicarbonate (SODIUM BICARBONATE) 50 MEQ A SDIR PRN IV Ondansetron HCl (ZOFRAN) 4 MG Q6H PRN PRN IV Physical Exam General appearance: alert, awake, oriented Head/Eyes: atraumatic, normal conjunctiva/sclera , normal eyelids/periorb., normocephalic Neck: full range of motion, non-tender, no JVD Cardiovascular: normal heart sounds, regular rat e rhythm Respiratory: decreased breath sounds, clear to a uscultation Abdomen: non-tender, normal bowel sounds, soft, no distention Extremities: edema, moves all, no calf tendernes s 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, 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 Skin: dry, intact Results Findings/Data: Laboratory Tests 12/31 12/31 12/31 0945 0850 0410 Blood Gas Puncture Site Art Line Art Line O2 Saturation (90 - 100 %) 80.0 L 66.6 L 96.8 ABG pH (7.35 - 7.45) 7.445 7.444 7.393 ABG pCO2 (35.0 - 45 mmHg) 50.2 *H 50.4 *H 66.2 *H ABG pO2 (80 - 100.0 mmHg) 41.6 *L 33.9 *L 93.0 ABG PO2/FiO2 Ratio (mm/Hg) 173.33 ABG HCO3 (22.0 - 26.0 MMOL/L) 34.7 *H 34.6 *H 4 0.4 *H ABG Total CO2 36.3 36.1 42.5 ABG Base Excess (-4.0 - 4.0 MMOL/L) 10.5 H 10.5 H 15.5 H ABG Hematocrit (33.0 - 45.0 %) 28 L 28 L 44 ABG Hemoglobin (11.0 - 15.0 G/DL) 9.4 L 9.4 L 1 5.1 H Sodium (134 - 147 MEQ/L) 143 143 146 Potassium (3.4 - 5.0 MEQ/L) 3.5 3.6 3.1 L Chloride (100 - 108 MEQ/L) 96 L 97 L 96 L Ionized Calcium (1.12 - 1.32 MMOL/L) 1.32 1.34 H 1.41 H Lactic Acid (0.9 - 1.7 mmol/l) 0.8 L 0.9 0.7 L Temperature (F) 97.2 98.2 O2 Delivery Device Room Air Cannula FiO2 (%) 24 Laboratory Tests 12/31 12/31 12/31 12/31 12/31 1216 0945 0850 0754 0410 Chemistry POC Creatinine (0.6 - 1.0 mg/dL) 0.8 0.8 1.0 POC Glucose (70 - 110 MG/DL) 149 H 82 POC Glucose (mg/dL) (70 - 110 MG/DL) 175 H 125 H 83 12/31 12/30 12/30 12/30 0404 2112 1840 1722 Chemistry Sodium (134 - 147 mEq/L) 142 144 Potassium (3.4 - 5.0 mEq/L) 3.5 3.5 Chloride (100 - 108 mEq/L) 101 99 L Carbon Dioxide (21 - 33 mEq/l) 38 H 38 H Anion Gap (0 - 20) 7 10 BUN (7 - 18 mg/dL) 31 H 38 H Creatinine (0.6 - 1.3 mg/dL) 0.9 1.0 Glomerular Filtr Rate (70 - 80) 60.6 L 53.6 L Glucose (70 - 110 mg/dL) 85 204 H POC Glucose (70 - 110 MG/DL) 189 H 213 H Calcium (8.0 - 10.5 mg/dL) 9.8 9.8 Magnesium (1.80 - 2.40 mg/dL) 2.24 1.84 Laboratory Tests 12/31 0404 Hematology WBC (4.5 - 11.0 x10 3/uL) 7.9 RBC (3.54 - 5.02 x10 6/uL) 2.36 L Hgb (11.0 - 15.0 g/dL) 8.9 L Hct (33.0 - 45.0 %) 26.0 L MCV (81.0 - 99.0 fL) 110.2 H MCH (27.0 - 33.0 pg) 37.7 H MCHC (33.0 - 37.0 g/dL) 34.2 RDW (11.5 - 14.5 %) 16.8 H Plt Count (150 - 400 x10 3/uL) 220 MPV (7.0 - 9.0 fL) 10.7 H Neut % (Auto) (56.0 - 77.0 %) 83.9 H Lymph % (Auto) (14.0 - 32.0 %) 4.5 L Barron % (Auto) (4.8 - 9.0 %) 8.5 Eos % (Auto) (0.3 - 3.7 %) 1.5 Baso % (Auto) (0.0 - 2.0 %) 0.3 Neut # (Auto) (2.0 - 7.6 x10 3/uL) 6.60 Lymph # (Auto) (1.0 - 3.8 x10 3/uL) 0.35 L Barron # (Auto) (0.1 - 0.8 x10 3/uL) 0.67 Eos # (Auto) (0.0 - 0.2 x10 3/uL) 0.12 Baso # (Auto) (0.0 - 0.2 x10 3/uL) 0.02 Abs Immat Gran (auto) (0.00 - 0.03 x10 3/uL) 0. 10 H Add Manual Diff NO Immature Gran % (0.0 - 2.0 %) 1.3 Nucleated RBC % (0 - 0 %) 0.6 H Nucleated RBCs # (Man) (0.0 - 0.1 x10 3/uL) 0.0 5 Polychromasia 2+ Hypochromasia 1+ Anisocytosis 1+ Macrocytosis 1+ Cold Agglutinates 2+ Radiology data: Recent Impressions: CAT SCAN - CT CHEST W/O CONTRAST 12/30 1316 Report Impression - Status: SIGNED Entered: 12/30/2021 5763 IMPRESSION: 1. Bilateral multifocal ground-glass pulmonary o pacities with associated interstitial septal thickening. Edema and inflammation in the differential. Imaging features can be see n with COVID-19 pneumonia, though are nonspecific and can occur with a variety of infectious and noninfectious processes. (Referen ce: Michael) 2. Partial atelectasis of the lower lobes with a dditional foci of subsegmental atelectasis and or consolidation. 3. Small bilateral pleural effusions. 4. Postoperative changes of CABG. Stable cardiom egaly. Trace pericardial fluid. Small volume anterior mediast inal hematoma/seroma. REFERENCES: Michael Vinson et al., [employer] Society of [place] Expert Consensus Statement on Reporting Chest CT Findin gs Related to COVID-19. Endorsed by the Society of Thoracic Ra diology, the [employer], and RSNA. Publish ed June 07, 2019. Impression By: Catherine Carlisle M.D. RADIOLOGY - XR CHEST 1 V 12/31 0629 Report Impression - Status: SIGNED Entered: 12/31/2021 0708 IMPRESSION: 1. Stable pulmonary opacities with multifocal co nsolidation and or atelectasis. 2. Stable pleural effusions. 3. Stable postoperative cardiomediastinal silhou ette. Impression By: Catherine Carlisle M.D. Treatment Prophylaxis Treatment Prophylaxis Drain(s)/tube(s): Drain(s)/tube(s): chest (x3) Diagnosis, Assessment Plan Consultants: cardiology, cardiovascular surgery Free Text DxA P Notes Free text DxA P notes: 76 years old female with PMH of macular degeneration, obesity, obstructive sleep apnea (CPAP at home), former smoker, hypertensio n, hyperlipidemia, diabetes, Crohn's disease, chronic atr ial fibrillation status post 3 ablations in the past (on Xarelto), pacemaker placement CAD -- multiple vesssels HTN DM HLD Crohn's disease chronic atrial fibrillation status post 3 ablati ons macular degeneration obesity obstructive sleep apnea acute respiratory failure --post surgery severe mitral valve regurgitation constrictive pericarditis CAD -- cardiology consult CV surgeon consult CABG -- AM ASA/lipitor afib -- rate control -- hold xarelto for surgery HTN-- continue home med DM-- on lantus -- sliding scale HLD-- on lipitor RONA--cpap as need DVTP -- heparin 12/18- feel sob -- CABG -- afternoon 12/19--post MVR (31 Magna valve), CABG x 1 (ROBERTS- LAD), ILAA and pericardectomy -- she remain intubated on the vent -- chest tube are in place -on levophed and epinephrine drip -- monitor in CCU 12/20- she was extubated --on bipap now -- NPO --off Levophed/epinephrine, continue vasopress in, inotropes with milrinone, -- chest tube remain in place -- she is stable post surgery 12/21-- she is on high flow O2 -- edema --lasix --chest tube in place --- she is hemodynamic stable -- continue monitor in CCU 12/22- she remain on high O2 CXR show worsening pulmonary venous vascular co ngestion. --lasix iv tid -- chest tube are out -- off drips -- NPO -- start TPN -- continue monitor in CCU 12/23- she remain on high flow O2 --less edema -- on TPN -- she is hemodynamic stable -- continue monitor in CVICU 12/24- she get better -- she is out bed and sit on the chair -- start ambulate with PT -- continue current management 12/25- she is doing well with PT remain on o2 continue iv lasix / add diamox continue supportive care continue monitor in CVICU 12/26- she is on bipap -- she remain sob and edema -- may start lasix drip as nurse -- continue supportive care 12/27 On lasix and insulin drips. Back on lantus dose BID, trend glucose. Continue PT/OT. 12/28 Increase lantus BID. 12/29-- she remain on bipap -- sob and edema --lasiv and diamox iv bid -- FS -- better control -- continue monitor in CVICU 12/30- she improve --less sob and edema -- she tolerance diet -- continue lasix -- continue PT/OT 12/31-- less sob and edema - -- ABG -- review -- improve -- continue lasix -- CM --LTAC evaluation Electronically Signed by Meryl Rosa MD on 2 at 1946 RPT #:[id number] END OF REPORT 2021-12-31 12:13:00-00:00 [facility] ([facility]) Cardiothoracic Surgery Prog REPORT#:[id number] REPORT STATUS: Signed DATE:12/31/21 TIME: 1213 PATIENT: ASÚL GILES UNIT #: [id number] ROOM/BED: [facility] : 43 AGE: 76 SEX: F ATTEND: Leah More MD ADM AUTHOR: Tj Bonner MD * ALL edits or amendments must be made on the [employer]/computer document * General Post-op: day 8 Status post: 1. Mitral valve replacement (31 Magna valve). 2. Coronary artery bypass graft surgery x1 (ROBERTS to LAD). 3. Isolation of left atrial appendage. 4. Pericardiectomy. Subjective Chief complaint: Shortness of breath Review of Systems Constitutional: Denies: fever, malaise. Allergy/Immun: Denies: allergic reaction. ENT: Denies: sore throat. Respiratory: Denies: SOB. GI: Denies: abdominal pain. Heme: Denies: bleeding. Neuro: Denies: focal weakness, headache. All systems rev neg: except as marked Objective General VS/I O Last Documented: Result Date Time Pulse Ox 82 01/01 0845 B/P 142/46 01/01 0845 B/P Mean 76 01/01 0845 Temp 36.2 01/01 0845 Pulse 72 01/01 0845 Resp 28 12/31 0845 O2 Flow Rate 2 12/31 0810 FiO2 32 12/31 0754 O2 Delivery High flow nasal cannula 12/31 0754 24 hour I O ending at 0700: 12/31 0700 12/30 1900 Intake Total 450.00 1250 Output Total 1400 1850 Balance -950.00 -600 Intake, IV 100.00 Intake, Oral 350 1250 Output, Urine 1400 1850 Patient 121 kg Weight Weight Standing scale Measurement Method PATIENT WEIGHT: Weight (lb): 266 Weight (oz): 12.15 Weight (kg): 121.000 Dietitian Nutrition assessment The data set between the solid lines has been im ported from the dietitian's assessment. BMI Calculated: 45.8 Nutrition related diagnosis: Morbid obesity Nutrition diagnosis details: BMI 40 or more Nutrition problem: Increased nutrient needs Nutrition etiology: Chronic disease Nutrition signs and symptoms: S/P CABG Nutrition prescription: 1. RECOMMEND 1800 ADA DI ABETIC DIET WITH HX OF DM. 2. PROVIDE GLUCERNA TID WITH MEALS. 3. MONITOR PO, WT, LABS, BM. Dietitian name: Serenity Garner, DIET Assessment completed: 12/30/21 Physical Exam General appearance: awake Wound/incision: Location: sternal Site condition: dressing clean dry, dressing in tact HEENT: anicteric Neck: supple/no meningismus Cardiovascular: normal heart sounds, regular rat e rhythm Respiratory: aerating well, symmetric expansion, no distress Abdomen: soft, non-tender Extremities: moves all 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, 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, normal speech Skin: dry, intact, normal temperature Psychiatry: normal affect, normal mood Current Medications Medications: Active Meds + DC'd Last 24 Hrs Acetazolamide (DIAMOX) 500 MG Q24H IV Sterile Water (WATER FOR INJECTION) 5 ML ASDIR P RN IV Furosemide (LASIX 40 mg/4 mL INJECTION) 40 MG Q2 4H IV Potassium Chloride (POTASSIUM CHLORIDE 20MEQ TAB .ER) 40 MEQ ONCE ONE PO (DC) Potassium Chloride (POTASSIUM CHLORIDE 20MEQ TAB .ER) 40 MEQ DAILY PRN PRN PO Potassium Chloride (K-JN 20 MEQ PACKET) 40 MEQ NOW ONE FEED-TUBE (DC) Insulin Glargine (Lantus/Semglee) 30 UNIT DAILY SUBQ Insulin Glargine (Lantus/Semglee) 20 UNIT BEDTIM E SUBQ Insulin Human Lispro (HUMALOG) 0 AC HS SUBQ Dextrose/Water (DEXTROSE 10% IN WATER) 125 ML DIR PRN IV (CKD) Dextrose/Water (DEXTROSE 10% IN WATER) 250 ML DIR PRN IV (CKD) Glucagon (GLUCAGON) 1 MG ASDIR PRN IM Amiodarone HCl (CORDARONE) 200 MG BID PO Furosemide (LASIX 40 mg/4 mL INJECTION) 40 MG BI D 9A 5P IV (DC) Acetazolamide (DIAMOX) 500 MG Q12HR IV (DC) Sterile Water (WATER FOR INJECTION) 5 ML ASDIR P RN IV Sterile Water (WATER FOR INJECTION) 5 ML ASDIR P RN IV Sodium Chloride (SODIUM CHLORIDE) 4 ML RTBID NEB Melatonin (Melatonin) 3 MG BEDTIME PO Sodium Chloride (SODIUM CHLORIDE) 10 ML BID IV Sodium Chloride (SODIUM CHLORIDE) 10 ML ASDIR NE N IV Pantoprazole (PROTONIX) 40 MG DAILY PO Dexmedetomidine/Sodium Chloride (PRECEDEX 1000MC G/NS 250ML) 250 ML ASDIR IV Bisacodyl (DULCOLAX) 10 MG DAILY PRN PRN RECTAL Lactulose (LACTULOSE) 20 GM DAILY PRN PRN PO Magnesium Hydroxide (MILK OF MAGNESIA) 30 ML PETER LY PRN PRN PO Aspirin (ASPIRIN) 81 MG DAILY PO Clopidogrel Bisulfate (Plavix) 75 MG DAILY PO Cyanocobalamin (Vitamin B-12 500 mcg tab) 500 MC G DAILY PO Ferrous Sulfate (FERROUS SULFATE) 325 MG DAILY P O Metolazone (metOLazone) 5 MG DAILY PO Polyethylene Glycol (MIRALAX) 17 GM DAILY PO Atorvastatin Calcium (LIPITOR) 40 MG 2100 PO Docusate Sodium (DOCUSATE SODIUM) 100 MG BID PO Metoprolol Tartrate (LOPRESSOR) 12.5 MG Q12HR PO Senna (SENOKOT) 17.6 MG BEDTIME PO Acetaminophen (TYLENOL) 650 MG Q4H PRN PRN PO Insulin Human Regular (HumuLIN R) 100 UNIT ASDIR IV (DC) Sodium Chloride (SODIUM CHLORIDE 0.9%) 99 ML Acetylcysteine (MUCOMYST FOR RT) 200 MG RTQ6H NE B Albuterol/Ipratropium (DUONEB) 3 ML RTQ6H NEB Bisacodyl (DULCOLAX) 10 MG ONCE PRN RECTAL Dopamine HCl/Dextrose (DOPamine 400MG/D5W 250ML) 250 ML ASDIR IV Milrinone Lactate/Dextrose (MILRINONE 20MG/D5W 1 00ML) 100 ML ASDIR IV ( CKD) Vasopressin (VASOSTRICT 20 Unit/NS 100ML) 100 ML ASDIR IV (CKD) Acetaminophen (TYLENOL) 650 MG Q4H PRN PRN RECTA L Calcium Chloride (CALCIUM CHLORIDE) 1 GM ASDIR P RN IV Dextrose/Water (DEXTROSE 10% IN WATER) 125 ML DIR PRN IV (CKD) Dextrose/Water (DEXTROSE 10% IN WATER) 250 ML A SDIR PRN IV (CKD) Glucagon (GLUCAGON) 1 MG ASDIR PRN IM Magnesium Sulfate (MAGNESIUM SULFATE 4GM/SWFI 10 0ML) 100 ML ASDIR PRN IV Magnesium Sulfate (MAGNESIUM SULFATE 2GM/SWFI 50 ML) 50 ML ASDIR PRN IV Magnesium Sulfate/Dextrose (MAGNESIUM SULFATE 1G M/D5W 100ML) 100 ML ASDIR PRN IV Nitroglycerin/Dextrose (NITROGLYCERIN 50,000MCG/ D5W 250ML) 250 ML ASDIR IV Norepinephrine Bitartrate (NOREPINEPHRINE 8 MG/N S 250 ML) 250 ML TITRATE IV Potassium Chloride (KCL 20MEQ/SWFI 100ML) 100 ML ASDIR PRN IV Sodium Bicarbonate (SODIUM BICARBONATE) 50 MEQ A SDIR PRN IV Ondansetron HCl (ZOFRAN) 4 MG Q6H PRN PRN IV Results Findings/Data: Laboratory Tests 12/31 12/31 12/31 0945 0850 0410 Blood Gas Puncture Site Art Line Art Line O2 Saturation (90 - 100 %) 80.0 L 66.6 L 96.8 ABG pH (7.35 - 7.45) 7.445 7.444 7.393 ABG pCO2 (35.0 - 45 mmHg) 50.2 *H 50.4 *H 66.2 *H ABG pO2 (80 - 100.0 mmHg) 41.6 *L 33.9 *L 93.0 ABG PO2/FiO2 Ratio (mm/Hg) 173.33 ABG HCO3 (22.0 - 26.0 MMOL/L) 34.7 *H 34.6 *H 4 0.4 *H ABG Total CO2 36.3 36.1 42.5 ABG Base Excess (-4.0 - 4.0 MMOL/L) 10.5 H 10.5 H 15.5 H ABG Hematocrit (33.0 - 45.0 %) 28 L 28 L 44 ABG Hemoglobin (11.0 - 15.0 G/DL) 9.4 L 9.4 L 15.1 H Sodium (134 - 147 MEQ/L) 143 143 146 Potassium (3.4 - 5.0 MEQ/L) 3.5 3.6 3.1 L Chloride (100 - 108 MEQ/L) 96 L 97 L 96 L Ionized Calcium (1.12 - 1.32 MMOL/L) 1.32 1.34 H 1.41 H Lactic Acid (0.9 - 1.7 mmol/l) 0.8 L 0.9 0.7 L Temperature (F) 97.2 98.2 O2 Delivery Device Room Air Cannula FiO2 (%) 24 Laboratory Tests 12/31 12/31 12/31 12/31 12/31 0945 0850 0754 5430 0404 Chemistry Sodium (134 - 147 mEq/L) 142 Potassium (3.4 - 5.0 mEq/L) 3.5 Chloride (100 - 108 mEq/L) 101 Carbon Dioxide (21 - 33 mEq/l) 38 H Anion Gap (0 - 20) 7 BUN (7 - 18 mg/dL) 31 H Creatinine (0.6 - 1.3 mg/dL) 0.9 POC Creatinine (0.6 - 1.0 mg/dL) 0.8 0.8 1.0 Glomerular Filtr Rate (70 - 80) 60.6 L Glucose (70 - 110 mg/dL) 85 POC Glucose (70 - 110 MG/DL) 82 POC Glucose (mg/dL) (70 - 110 MG/DL) 175 H 125 H 83 Calcium (8.0 - 10.5 mg/dL) 9.8 Magnesium (1.80 - 2.40 mg/dL) 2.24 12/30 12/30 12/30 2112 1840 1722 Chemistry Sodium (134 - 147 mEq/L) 144 Potassium (3.4 - 5.0 mEq/L) 3.5 Chloride (100 - 108 mEq/L) 99 L Carbon Dioxide (21 - 33 mEq/l) 38 H Anion Gap (0 - 20) 10 BUN (7 - 18 mg/dL) 38 H Creatinine (0.6 - 1.3 mg/dL) 1.0 Glomerular Filtr Rate (70 - 80) 53.6 L Glucose (70 - 110 mg/dL) 204 H POC Glucose (70 - 110 MG/DL) 189 H 213 H Calcium (8.0 - 10.5 mg/dL) 9.8 Magnesium (1.80 - 2.40 mg/dL) 1.84 Laboratory Tests 12/31 0404 Hematology WBC (4.5 - 11.0 x10 3/uL) 7.9 RBC (3.54 - 5.02 x10 6/uL) 2.36 L Hgb (11.0 - 15.0 g/dL) 8.9 L Hct (33.0 - 45.0 %) 26.0 L MCV (81.0 - 99.0 fL) 110.2 H MCH (27.0 - 33.0 pg) 37.7 H MCHC (33.0 - 37.0 g/dL) 34.2 RDW (11.5 - 14.5 %) 16.8 H Plt Count (150 - 400 x10 3/uL) 220 MPV (7.0 - 9.0 fL) 10.7 H Neut % (Auto) (56.0 - 77.0 %) 83.9 H Lymph % (Auto) (14.0 - 32.0 %) 4.5 L Barron % (Auto) (4.8 - 9.0 %) 8.5 Eos % (Auto) (0.3 - 3.7 %) 1.5 Baso % (Auto) (0.0 - 2.0 %) 0.3 Neut # (Auto) (2.0 - 7.6 x10 3/uL) 6.60 Lymph # (Auto) (1.0 - 3.8 x10 3/uL) 0.35 L Barron # (Auto) (0.1 - 0.8 x10 3/uL) 0.67 Eos # (Auto) (0.0 - 0.2 x10 3/uL) 0.12 Baso # (Auto) (0.0 - 0.2 x10 3/uL) 0.02 Abs Immat Gran (auto) (0.00 - 0.03 x10 3/uL) 0. 10 H Add Manual Diff NO Immature Gran % (0.0 - 2.0 %) 1.3 Nucleated RBC % (0 - 0 %) 0.6 H Nucleated RBCs # (Man) (0.0 - 0.1 x10 3/uL) 0.0 5 Polychromasia 2+ Hypochromasia 1+ Anisocytosis 1+ Macrocytosis 1+ Cold Agglutinates 2+ Radiology data: Recent Impressions: CAT SCAN - CT CHEST W/O CONTRAST 12/30 1316 Report Impression - Status: SIGNED Entered: 12/30/2021 9116 IMPRESSION: 1. Bilateral multifocal ground-glass pulmonary o pacities with associated interstitial septal thickening. Edema and inflammation in the differential. Imaging features can be see n with COVID-19 pneumonia, though are nonspecific and can occur with a variety of infectious and noninfectious processes. (Referen ce: Michael) 2. Partial atelectasis of the lower lobes with a dditional foci of subsegmental atelectasis and or consolidation. 3. Small bilateral pleural effusions. 4. Postoperative changes of CABG. Stable cardiom egaly. Trace pericardial fluid. Small volume anterior mediast inal hematoma/seroma. REFERENCES: Michael Vinson et al., [employer] Society [place] Expert Consensus Statement on Reporting Chest CT Findin gs Related to COVID-19. Endorsed by the Society of Thoracic Ra diology, the [place] [employer], and RSNA. Publish ed June 07, 2019. Impression By: Catherine Carlisle M.D. RADIOLOGY - XR CHEST 1 V 12/31 0653 Report Impression - Status: SIGNED Entered: 12/31/2021 0708 IMPRESSION: 1. Stable pulmonary opacities with multifocal co nsolidation and or atelectasis. 2. Stable pleural effusions. 3. Stable postoperative cardiomediastinal silhou ette. Impression By: Catherine Carlisle M.D. Results: rythm personally re v'd, x-ray personally reviewed, current med profile rev'd Treatment Prophylaxis Treatment Prophylaxis Oxygen: CPAP/BIPAP Lines: arterial, CVC, peripheral Drain(s)/tube(s): Drain(s)/tube(s): chest (x3) Quality: Trauma Gen Surg Current Medications Current medication review: Home Medications: RIVAROXABAN (XARELTO) 20 MG PO DAILY amLODIPine (NORVASC) 5 MG PO DAILY cloNIDine (CATAPRES) 0.3 MG PO BID DOXAZOSIN (CARDURA) LISINOPRIL (ZESTRIL) OLMESARTAN (BENICAR) 40 MG PO DAILY PRAVASTATIN (PRAVACHOL) FUROSEMIDE (LASIX) 10 MG PO DAILY METOLAZONE (ZAROXOLYN) 10 MG PO DAILY POTASSIUM CHLORIDE ER (MICRO-K) 10 MEQ PO DAILY OMEPRAZOLE ER 20 MG PO DAILY GLIMEPIRIDE (AMARYL) 4 MG PO DAILY INSULIN DETEMIR (LEVEMIR FlexTouch (15mL)) 50 UN ITS SUBQ BID INSULIN LISPRO (HumaLOG CARTRIDGE (15mL)) 0 UNIT S SUBQ TID LIRAGLUTIDE (VICTOZA (6mL)) 1.8 MG SUBQ DAILY metFORMIN (GLUCOPHAGE) 1,000 MG PO BID ADALIMUMAB + SUPPLIES (HUMIRA PREFILLED PEN) 40 MG SUBQ Q14D azaTHIOprine (IMURAN) 50 MG PO DAILY I attest that the foregoing medication list in t medical record is true, accurate, and complete to the best of my knowled ge. Diagnosis, Assessment Plan Hospital course to date: This very pleasant 76-year-old female, from [facility], with past medical history of macular d egeneration, obesity, obstructive sleep apnea (CPAP at home), former smoker, hyp ertension, hyperlipidemia, diabetes, Crohn's disease , chronic atrial fibrillatio n status post 3 ablations in the past (on Xarelto), pacemaker placement who had a recent admission t o the hospital with heart failure symptoms. She has be en admitted to the hospital today for elective heart cath. Coronary angiogram showed severe multivess el coronary artery disease suitable for percutaneous intervention. CV surge ry called for evaluation. PLAN Patient has severe coronary artery disease and c onstrictive pericarditis. She will benefit from off-pump L CHAD to LAD and pericardiotomy. Dr. Romero explained to the patient the surgery, risks involv ed, STS score, benefits, complications and alternatives. She acknowledged understanding and is willing to proceed Preop work-up has been initiated We will tentatively schedule patient for surgery tomorrow. 12/18 Preop assessment ongoing No carotid stenosis on ultrasound CT chest reviewed with Dr. Romero Surgery rescheduled for tomorrow NPO after midnight Plan discussed with the patient 12/20 POD 1 Patient hemodynamically stable, cardiac index 3. 1 Required Bipap after extubation yesterday and ov ernight Trend ABGs- wean bipap as tolerated Decrease milrinone drip to 0.125, and continue v asopressin at 0.02 Urine output marginal- dopamine drip started at 3 Creatinine increased to 1.4, monitor strict I an d O's Encourage po intake, incentive spirometer use Try to get patient out of bed to chair today PT/OT Monitor patient closely in the CVICU 12/22/21 POD3 d/c chest tubes need to diuresis agressively 40 q12 edema needs legs elevated cxr appears wet d/c swan TPN due to bipap teleflex today keep TPN for now 10/11 POD 4 Labs and cxr reviewed Increase diuresis- monitor strict I Os Continue TPN On teleflex 60L 70%- wean as tolerated Monitor patient in CVICU 12/25/21 POD 6 back on bipap if reintubate consider trach still on TPN if trach consider PEG 12/26/21 POD 7 contiune bipap support alt with teleflex if reintubate will need trach and peg continue hyperal 12/29/21 improving less O2 requirements ambulating much better tolorating diet rahab vs LTAC placement 01/31/22 much better from O2 needs standpoint ambulating better advancing diet plan rehab vs LTAC Consultants: cardiology, cardiovascular surgery Electronically Signed by Tj Bonner MD on 12/13 12/04 at 1215 RPT #:[id number] END OF REPORT 2021-12-31 10:59:00-00:00 [facility] ([facility]) Nephrology Progress Note REPORT#:[id number] REPORT STATUS: Signed DATE:12/31/21 TIME: 1059 PATIENT: SAÚL GILES UNIT #: [id number] ROOM/BED: [place] [address] : 43 AGE: 76 SEX: F ATTEND: Ayala More MD ADM AUTHOR: Suki Fuchs MD * ALL edits or amendments must be made on the [employer]/computer document * Subjective Chief complaint: chest pain HPI: This is a 76-year-old female who has past medica l history of hypertension, diabetes, coronary artery disease, atrial fibril lation who presented with worsening shortness of breath and on further wor k-up was 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 She was with normal kidney function prior to surgery and afte r her surgery she began to develop oliguria. Her procedure was done without any complications but after her surgery she did require pressor support for hypotension and she was intubated for respiratory acidosis and hypoxia a nd she was treated with vancomycin for infection treatment. When she was seen this morning she continued to have hypotension and her heart rate was paced by her permanent pacemaker and her urine outp ut was 20 to 30/h. Her family at bedside denied any history of kidney disease, kidney stone, chronic NSAID use or any urinary complaints. They also endorse that her b lood pressure and diabetes were mostly controlled. 12/30 Today she was comfortable, volume improving with IV lasix. Objective General VS/I O: Vital Signs: Date Time Temp Pulse Resp B/P B/P Pulse O2 O2 F low FiO2 Mean Ox Delivery Rate 12/31 0845 36.2 72 28 142/46 76 82 / 0830 36.2 72 36 133/51 79 92 12/31 0815 36.1 75 27 141/49 78 97 12/31 0810 2 10 0800 112/74 89 12/31 0800 36.0 69 24 144/51 82 100 12/31 0754 99 High flow 3 32 nasal cannula 12/31 0745 36.0 69 26 143/50 81 99 12/31 0730 36.0 80 33 134/44 71 86 12/31 0715 36.1 71 29 140/48 77 90 12/31 0700 111/59 80 12/31 0700 36.0 71 29 136/42 70 83 12/31 0645 36.0 69 21 135/45 73 97 12/31 0630 36.0 71 35 142/52 80 100 12/31 0615 36.0 83 36 137/49 78 98 / 0600 124/59 85 12/31 0600 36.0 72 39 148/49 80 91 / 0545 73 31 340/340 340 12/31 0530 36.0 73 30 129/43 71 88 / 0515 36.1 70 24 134/46 75 92 12/31 0500 126/60 87 12/31 0500 36.1 69 21 146/50 82 100 / 0445 36.1 72 19 132/47 75 100 / 0440 72 100 40 / 0430 36.1 70 23 119/42 66 100 / 0415 36.0 72 22 108/37 57 98 10/ 0401 113/85 97 / 0401 36.0 75 26 145/55 84 100 10/ 0400 36.0 75 22 139/54 83 100 10/ 0345 36.0 72 29 96 / 0330 36.0 71 26 65/58 61 97 / 0315 36.1 73 24 65/57 62 87 10/19 0300 119/58 84 10/19 0300 36.2 72 44 77/60 69 96 10/19 0245 36.3 73 31 76/60 68 90 10/19 0230 36.2 75 14 109/43 65 100 10/19 0215 36.2 74 14 114/44 68 100 10/19 0200 122/56 81 10/19 0200 36.2 75 22 123/46 73 97 10/19 0145 36.2 72 34 105/52 72 97 10/19 0130 36.3 75 23 126/51 77 100 10/19 0115 36.2 74 22 100/44 62 98 10/19 0100 123/60 86 10/19 0100 36.2 75 22 122/51 76 100 10/19 0045 36.1 71 29 121/46 72 98 10/19 0030 36.2 74 25 127/45 73 93 10/19 0015 36.2 73 28 122/44 70 92 10/19 0001 125/57 82 10/ 0001 36.3 76 20 128/49 78 100 10/ 0000 36.3 75 18 130/51 80 100 18 2345 36.3 74 21 121/46 73 100 18 2330 36.3 72 27 126/49 77 100 18 2315 36.3 73 21 130/49 77 100 / 2301 139/63 91 12/30 2301 36.3 75 37 123/46 74 89 /18 2300 36.4 75 27 126/46 73 94 12/30 2245 36.3 75 16 110/39 60 100 18 2230 36.3 75 15 115/41 63 100 18 2215 36.2 74 16 111/37 58 98 10/ 2201 149/70 84 12/30 2201 36.2 75 24 137/45 72 100 /18 2200 36.2 75 22 139/44 73 100 10/18 2145 36.2 69 24 141/45 75 97 18 2130 36.2 73 21 133/38 63 100 10/18 2125 110/59 69 10/18 2124 36.2 73 30 142/42 73 100 10/18 5 36.1 72 37 140/41 70 100 10/18 2100 36.0 73 29 139/45 77 12/30 2056 74 100 40 10/18 2044 36.0 71 34 141/48 80 99 12/31 2043 88 Nasal 2 cannula 12/30 2029 35.9 75 26 132/42 69 91 12/30 2014 36.0 70 26 136/42 71 90 12/31 1999 36.8 12/31 1999 Nasal 2 cannula 12/31 1999 36.0 72 26 136/45 74 89 12/30 1944 36.1 72 32 134/46 75 90 12/30 1929 36.1 73 32 132/47 74 91 12/30 1914 36.1 71 25 139/45 74 100 12/30 1899 36.1 73 28 142/48 77 98 24 hour I O ending at 0700: 12/31 0700 12/30 1900 Intake Total 450.00 1250 Output Total 1400 1850 Balance -950.00 -600 Intake, IV 100.00 Intake, Oral 350 1250 Output, Urine 1400 1850 Patient 121 kg Weight Weight Standing scale Measurement Method PATIENT WEIGHT: Weight (lb): 266 Weight (oz): 12.15 Weight (kg): 121.000 Physical Exam General appearance: alert, awake, oriented Head/eyes: atraumatic, normocephalic ENT: moist mucous membranes, normal nose Neck: no JVD, no lymphadenopathy Cardiovascular: normal heart sounds, regular rat e and rhythm Respiratory: aerating well, clear to auscultatio n Abdomen: soft, no pulsatile mass Genitourinary: urinary catheter Extremities: no gangrene, no swelling Treatment Prophylaxis Treatment Prophylaxis Drain(s)/tube(s): Drain(s)/tube(s): chest (x3) Diagnosis, Assessment Plan Free Text A P: This is a 76-year-old female known to have hyper tension, diabetes, atrial fibrillation, s/p permanent pacemaker and histor y of ablation presenting with shortness of breath and found to have multivesse l coronary artery disease therefore she had CABG on December 19 after which she has developed oliguria. Nephrology is following for: 1. Acute kidney injury: Most likely it i s prerenal (cardiorenal), she has been hypotensive postoperatively with require ment for pressor support and inotropic support. Plan is to increase inotropic support or pressor support to bring mean arterial pressure above 65 and give albumin with Lasix to see if it helps him diurese. If he does not respond to higher dose L asix with albumin then I will consider starting him on CRRT to prevent hyper v olemia. 2. Hypervolemia: Plan is to give Lasix a nd if he does not respond to start him on CRRT for extra fluid removal. 3. His electrolytes were all reviewed to be in normal range plan was to monitor and replace as needed. 4. He was receiving vancomycin so plan w as to monitor vancomycin trough levels to prevent ATN. 5/ Metabolic alkalosis secondary to diur etics : Plan to give acetazoleamide if worsening. 12/27 1. Acute kidney injury: Resolved, she is respond ing to lasix. 2. Hypervolemia: Plan to continue lasix as tolerated.Today she was on low dose twice daily lasix. 3. Hypokalemia/hypomagnesemia:secondary to diure tics, plan was to monitor and replace as needed. 4. She was receiving vancomy sanjana so plan was to monitor vancomycin trough levels to prevent ATN. 5/ Metabolic alkalosis secon lilli to diuretics : Plan to give acetazoleamide and monitor closely. 12/28 1. Acute kidney injury: Resolved, she is respond ing to lasix. 2. Hypervolemia: Plan to continue lasix as tolerated.Today she was on low dose twice daily lasix. 3. Hypokalemia/hypomagnesemia:secondary to diure tics, plan was to monitor and replace as needed. 4. She was receiving vancomy sanjana so plan was to monitor vancomycin trough levels to prevent ATN. 5/ Metabolic alkalosis secon lilli to diuretics : Plan to give acetazoleamide and monitor closely. 12/28 1. Acute kidney injury: Resolved, she is respond ing to lasix. 2. Hypervolemia: Plan to continue lasix as tolerated.Today she was on low dose twice daily lasix. 3. Hypokalemia/hypomagnesemia:secondary to diure tics, plan was to monitor and replace as needed. 4. She was receiving vancomy sanjana so plan was to monitor vancomycin trough levels to prevent ATN. 5/ Metabolic alkalosis secon lilli to diuretics : Plan to give acetazoleamide and monitor closely. 12/29 1. Acute kidney injury: Resolved, she is respond ing to lasix. 2. Hypervolemia: Plan to continue lasix as tolerated.Today she was on low dose twice daily lasix. 3. Hypokalemia/hypomagnesemia:secondary to diure tics, plan was to monitor and replace as needed. 4. She was receiving vancomy sanjana so plan was to monitor vancomycin trough levels to prevent ATN. 5/ Metabolic alkalosis [place] to diuretics : Plan to give acetazoleamide and monitor closely. 12/30 1. Acute kidney injury: Resolved, she is respond ing to lasix. 2. Hypervolemia: Plan to continue lasix as tolerated.Today she was on low dose twice daily lasix. 3. Hypokalemia/hypomagnesemia:secondary to diure tics, plan was to monitor and replace as needed. 4. Metabolic alkalosis secondary to diuretics : Plan to continue acetazoleamide and monitor closely. 12/31 1. Acute kidney injury: Resolved, she is respond ing to lasix. 2. Hypervolemia: Plan to continue lasix as tolerated.Today she was on low dose twice daily lasix. 3. Hypokalemia/hypomagnesemia:secondary to diure tics, plan was to monitor and replace as needed. 4. Metabolic alkalosis secondary to diuretics :I mproved so acetazoleamide reduced. Consultants: cardiology, cardiovascular surgery Electronically Signed by Suki Fuchs MD on at 1109 RPT #:[id number] END OF REPORT 2021-12-31 09:07:00-00:00 [facility] Cardiology Progress Note REPORT#:[id number] REPORT STATUS: Signed DATE:12/31/21 TIME: 906 PATIENT: SAÚL GILES UNIT #: [id number] ROOM/BED: [place] [address] : 43 AGE: 76 SEX: F ATTEND: Leah More MD ADM AUTHOR: Isabella Clemens CNP * ALL edits or amendments must be made on the el ectronic/computer document * Subjective Comments: Slowly getting better. On NC. Awake and alert. Objective General VS/I O: 24 hour I O ending at 0700: 12/31 0700 12/30 1900 Intake Total 450.00 1250 Output Total 1400 1850 Balance -950.00 -600 Intake, IV 100.00 Intake, Oral 350 1250 Output, Urine 1400 1850 Patient 121 kg Weight Weight Standing scale Measurement Method Vital Signs: Date Time Temp Pulse Resp B/P B/P Pulse O2 O2 F low FiO2 Mean Ox Delivery Rate 12/31 0810 2 12/31 0754 99 High flow 3 32 nasal cannula 12/31 0700 36.0 71 29 136/42 70 83 12/31 0645 36.0 69 21 135/45 73 97 12/31 0630 36.0 71 35 142/52 80 100 12/31 0615 36.0 83 36 137/49 78 98 12/31 0600 124/59 85 12/31 0600 36.0 72 39 148/49 80 91 12/31 0545 73 31 340/340 340 12/31 0530 36.0 73 30 129/43 71 88 12/31 0515 36.1 70 24 134/46 75 92 12/31 0500 126/60 87 / 0500 36.1 69 21 146/50 82 100 12/31 0445 36.1 72 19 132/47 75 100 10/ 0440 72 100 40 / 0430 36.1 70 23 119/42 66 100 / 0415 36.0 72 22 108/37 57 98 10/ 0401 113/85 97 / 0401 36.0 75 26 145/55 84 100 / 0400 36.0 75 22 139/54 83 100 / 0345 36.0 72 29 96 / 0330 36.0 71 26 65/58 61 97 / 0315 36.1 73 24 65/57 62 87 10/ 0300 119/58 84 10/ 0300 36.2 72 44 77/60 69 96 / 0245 36.3 73 31 76/60 68 90 / 0230 36.2 75 14 109/43 65 100 10/ 0215 36.2 74 14 114/44 68 100 10/ 0200 122/56 81 10/ 0200 36.2 75 22 123/46 73 97 10/ 0145 36.2 72 34 105/52 72 97 10/ 0130 36.3 75 23 126/51 77 100 10/ 0115 36.2 74 22 100/44 62 98 10/ 0100 123/60 86 10/ 0100 36.2 75 22 122/51 76 100 12/31 0045 36.1 71 29 121/46 72 98 12/31 0030 36.2 74 25 127/45 73 93 12/31 0015 36.2 73 28 122/44 70 92 12/31 0001 125/57 82 12/31 0001 36.3 76 20 128/49 78 100 12/31 0000 36.3 75 18 130/51 80 100 12/30 2345 36.3 74 21 121/46 73 100 12/30 2330 36.3 72 27 126/49 77 100 12/30 2315 36.3 73 21 130/49 77 100 12/30 2301 139/63 91 12/30 2301 36.3 75 37 123/46 74 89 12/30 2300 36.4 75 27 126/46 73 94 12/30 2245 36.3 75 16 110/39 60 100 12/30 2230 36.3 75 15 115/41 63 100 12/30 2215 36.2 74 16 111/37 58 98 12/30 2201 149/70 84 12/30 2201 36.2 75 24 137/45 72 100 12/30 2200 36.2 75 22 139/44 73 100 12/30 2145 36.2 69 24 141/45 75 97 12/30 2130 36.2 73 21 133/38 63 100 12/30 2125 110/59 69 12/30 2125 36.2 73 30 142/42 73 100 12/30 2114 36.1 72 37 140/41 70 100 12/30 2100 36.0 73 29 139/45 77 12/30 2056 74 100 40 12/30 2044 36.0 71 34 141/48 80 99 12/31 2043 88 Nasal 2 cannula 12/30 2029 35.9 75 26 132/42 69 91 12/30 2014 36.0 70 26 136/42 71 90 12/31 1999 36.8 12/31 1999 Nasal 2 cannula 12/31 1999 36.0 72 26 136/45 74 89 12/30 1944 36.1 72 32 134/46 75 90 12/30 1930 36.1 73 32 132/47 74 91 12/30 1915 36.1 71 25 139/45 74 100 12/30 1900 36.1 73 28 142/48 77 98 10/18 0915 35.9 73 22 127/44 70 82 PATIENT WEIGHT: Weight (lb): 266 Weight (oz): 12.15 Weight (kg): 121.000 Medications: Active Meds + DC'd Last 24 Hrs Potassium Chloride (POTASSIUM CHLORIDE 20MEQ TAB .ER) 40 MEQ ONCE ONE PO (DC) Potassium Chloride (POTASSIUM CHLORIDE 20MEQ TAB .ER) 40 MEQ DAILY PRN PRN PO Potassium Chloride (K-JN 20 MEQ PACKET) 40 MEQ NOW ONE FEED-TUBE (DC) Insulin Glargine (Lantus/Semglee) 30 UNIT DAILY SUBQ Insulin Glargine (Lantus/Semglee) 20 UNIT BEDTIM E SUBQ Insulin Human Lispro (HUMALOG) 0 AC HS SUBQ Dextrose/Water (DEXTROSE 10% IN WATER) 125 ML DIR PRN IV (CKD) Dextrose/Water (DEXTROSE 10% IN WATER) 250 ML DIR PRN IV (CKD) Glucagon (GLUCAGON) 1 MG ASDIR PRN IM Amiodarone HCl (CORDARONE) 200 MG BID PO Furosemide (LASIX 40 mg/4 mL INJECTION) 40 MG BI D 9A 5P IV Acetazolamide (DIAMOX) 500 MG Q12HR IV Sterile Water (WATER FOR INJECTION) 5 ML ASDIR P RN IV Sterile Water (WATER FOR INJECTION) 5 ML ASDIR P RN IV Sodium Chloride (SODIUM CHLORIDE) 4 ML RTBID NEB Melatonin (Melatonin) 3 MG BEDTIME PO Sodium Chloride (SODIUM CHLORIDE) 10 ML BID IV Sodium Chloride (SODIUM CHLORIDE) 10 ML ASDIR NE N IV Pantoprazole (PROTONIX) 40 MG DAILY PO Dexmedetomidine/Sodium Chloride (PRECEDEX 1000MC G/NS 250ML) 250 ML ASDIR IV Bisacodyl (DULCOLAX) 10 MG DAILY PRN PRN RECTAL Lactulose (LACTULOSE) 20 GM DAILY PRN PRN PO Magnesium Hydroxide (MILK OF MAGNESIA) 30 ML PETER LY PRN PRN PO Aspirin (ASPIRIN) 81 MG DAILY PO Clopidogrel Bisulfate (Plavix) 75 MG DAILY PO Cyanocobalamin (Vitamin B-12 500 mcg tab) 500 MC G DAILY PO Ferrous Sulfate (FERROUS SULFATE) 325 MG DAILY P O Metolazone (metOLazone) 5 MG DAILY PO Polyethylene Glycol (MIRALAX) 17 GM DAILY PO Atorvastatin Calcium (LIPITOR) 40 MG 2100 PO Docusate Sodium (DOCUSATE SODIUM) 100 MG BID PO Metoprolol Tartrate (LOPRESSOR) 12.5 MG Q12HR PO Senna (SENOKOT) 17.6 MG BEDTIME PO Acetaminophen (TYLENOL) 650 MG Q4H PRN PRN PO Insulin Human Regular (HumuLIN R) 100 UNIT ASDIR IV (CKD) Sodium Chloride (SODIUM CHLORIDE 0.9%) 99 ML Acetylcysteine (MUCOMYST FOR RT) 200 MG RTQ6H NE B Albuterol/Ipratropium (DUONEB) 3 ML RTQ6H NEB Bisacodyl (DULCOLAX) 10 MG ONCE PRN RECTAL Dopamine HCl/Dextrose (DOPamine 400MG/D5W 250ML) 250 ML ASDIR IV Milrinone Lactate/Dextrose (MILRINONE 20MG/D5W 1 00ML) 100 ML ASDIR IV ( CKD) Vasopressin (VASOSTRICT 20 Unit/NS 100ML) 100 ML ASDIR IV (CKD) Acetaminophen (TYLENOL) 650 MG Q4H PRN PRN RECTA L Calcium Chloride (CALCIUM CHLORIDE) 1 GM ASDIR P RN IV Dextrose/Water (DEXTROSE 10% IN WATER) 125 ML DIR PRN IV (CKD) Dextrose/Water (DEXTROSE 10% IN WATER) 250 ML DIR PRN IV (CKD) Glucagon (GLUCAGON) 1 MG ASDIR PRN IM Magnesium Sulfate (MAGNESIUM SULFATE 4GM/SWFI 10 0ML) 100 ML ASDIR PRN IV Magnesium Sulfate (MAGNESIUM SULFATE 2GM/SWFI 50 ML) 50 ML ASDIR PRN IV Magnesium Sulfate/Dextrose (MAGNESIUM SULFATE 1G M/D5W 100ML) 100 ML ASDIR PRN IV Nitroglycerin/Dextrose (NITROGLYCERIN 50,000MCG/ D5W 250ML) 250 ML ASDIR IV Norepinephrine Bitartrate (NOREPINEPHRINE 8 MG/N S 250 ML) 250 ML TITRATE IV Potassium Chloride (KCL 20MEQ/SWFI 100ML) 100 ML ASDIR PRN IV Sodium Bicarbonate (SODIUM BICARBONATE) 50 MEQ A SDIR PRN IV Ondansetron HCl (ZOFRAN) 4 MG Q6H PRN PRN IV Status post: CABG, MVR, and ILAA Physical Exam General appearance: chronica lly ill appearing, obese, alert, awake, oriented, no acute distress, pleasant ENT: moist mucosal membranes Neck: no JVD Cardiovascular: CV assessment: pedal edema, regular rate and rh ythm Respiratory: decreased breath sounds, on oxygen Abdomen: obese Genitourinary: no flank pain, no urinary cathete r Upper extremity: UE assessment: normal temperature, no edema Lower extremity: LE assessment: edema 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, 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 Skin: dry, intact Psychiatry: normal affect, normal mood Results Findings/Data: Laboratory Tests 12/31 12/31 0850 0410 Blood Gas Puncture Site Art Line O2 Saturation (90 - 100 %) 66.6 L 96.8 ABG pH (7.35 - 7.45) 7.444 7.393 ABG pCO2 (35.0 - 45 mmHg) 50.4 *H 66.2 *H ABG pO2 (80 - 100.0 mmHg) 33.9 *L 93.0 ABG HCO3 (22.0 - 26.0 MMOL/L) 34.6 *H 40.4 *H ABG Total CO2 36.1 42.5 ABG Base Excess (-4.0 - 4.0 MMOL/L) 10.5 H 15.5 H ABG Hematocrit (33.0 - 45.0 %) 28 L 44 ABG Hemoglobin (11.0 - 15.0 G/DL) 9.4 L 15.1 H Sodium (134 - 147 MEQ/L) 143 146 Potassium (3.4 - 5.0 MEQ/L) 3.6 3.1 L Chloride (100 - 108 MEQ/L) 97 L 96 L Ionized Calcium (1.12 - 1.32 MMOL/L) 1.34 H 1.4 1 H Lactic Acid (0.9 - 1.7 mmol/l) 0.9 0.7 L Temperature (F) 98.2 O2 Delivery Device Room Air Cannula Laboratory Tests 12/31 12/31 12/31 12/31 12/30 0850 0754 0410 0404 2112 Chemistry Sodium (134 - 147 mEq/L) 142 Potassium (3.4 - 5.0 mEq/L) 3.5 Chloride (100 - 108 mEq/L) 101 Carbon Dioxide (21 - 33 mEq/l) 38 H Anion Gap (0 - 20) 7 BUN (7 - 18 mg/dL) 31 H Creatinine (0.6 - 1.3 mg/dL) 0.9 POC Creatinine (0.6 - 1.0 mg/dL) 0.8 1.0 Glomerular Filtr Rate (70 - 80) 60.6 L Glucose (70 - 110 mg/dL) 85 POC Glucose (70 - 110 MG/DL) 82 189 H POC Glucose (mg/dL) (70 - 110 MG/DL) 125 H 83 Calcium (8.0 - 10.5 mg/dL) 9.8 Magnesium (1.80 - 2.40 mg/dL) 2.24 12/30 12/30 12/30 1840 1722 1159 Chemistry Sodium (134 - 147 mEq/L) 144 Potassium (3.4 - 5.0 mEq/L) 3.5 Chloride (100 - 108 mEq/L) 99 L Carbon Dioxide (21 - 33 mEq/l) 38 H Anion Gap (0 - 20) 10 BUN (7 - 18 mg/dL) 38 H Creatinine (0.6 - 1.3 mg/dL) 1.0 Glomerular Filtr Rate (70 - 80) 53.6 L Glucose (70 - 110 mg/dL) 204 H POC Glucose (70 - 110 MG/DL) 213 H 146 H Calcium (8.0 - 10.5 mg/dL) 9.8 Magnesium (1.80 - 2.40 mg/dL) 1.84 Laboratory Tests 12/31 0404 Hematology WBC (4.5 - 11.0 x10 3/uL) 7.9 RBC (3.54 - 5.02 x10 6/uL) 2.36 L Hgb (11.0 - 15.0 g/dL) 8.9 L Hct (33.0 - 45.0 %) 26.0 L MCV (81.0 - 99.0 fL) 110.2 H MCH (27.0 - 33.0 pg) 37.7 H MCHC (33.0 - 37.0 g/dL) 34.2 RDW (11.5 - 14.5 %) 16.8 H Plt Count (150 - 400 x10 3/uL) 220 MPV (7.0 - 9.0 fL) 10.7 H Neut % (Auto) (56.0 - 77.0 %) 83.9 H Lymph % (Auto) (14.0 - 32.0 %) 4.5 L Barron % (Auto) (4.8 - 9.0 %) 8.5 Eos % (Auto) (0.3 - 3.7 %) 1.5 Baso % (Auto) (0.0 - 2.0 %) 0.3 Neut # (Auto) (2.0 - 7.6 x10 3/uL) 6.60 Lymph # (Auto) (1.0 - 3.8 x10 3/uL) 0.35 L Barron # (Auto) (0.1 - 0.8 x10 3/uL) 0.67 Eos # (Auto) (0.0 - 0.2 x10 3/uL) 0.12 Baso # (Auto) (0.0 - 0.2 x10 3/uL) 0.02 Abs Immat Gran (auto) (0.00 - 0.03 x10 3/uL) 0. 10 H Add Manual Diff NO Immature Gran % (0.0 - 2.0 %) 1.3 Nucleated RBC % (0 - 0 %) 0.6 H Nucleated RBCs # (Man) (0.0 - 0.1 x10 3/uL) 0.0 5 Laboratory Tests 12/31 12/30 0404 1840 Chemistry Magnesium (1.80 - 2.40 mg/dL) 2.24 1.84 Radiology data: Recent Impressions: CAT SCAN - CT CHEST W/O CONTRAST 12/30 1316 Report Impression - Status: SIGNED Entered: 12/30/2021 1433 IMPRESSION: 1. Bilateral multifocal ground-glass pulmonary o pacities with associated interstitial septal thickening. Edema and inflammation in the differential. Imaging features can be see n with COVID-19 pneumonia, though are nonspecific and can occur with a variety of infectious and noninfectious processes. (Referen ce: Michael) 2. Partial atelectasis of the lower lobes with a dditional foci of subsegmental atelectasis and or consolidation. 3. Small bilateral pleural effusions. 4. Postoperative changes of CABG. Stable cardiom egaly. Trace pericardial fluid. Small volume anterior mediast inal hematoma/seroma. REFERENCES: Michael Vinson, et al., Radiological Society of [place] Expert Consensus Statement on Reporting Chest CT Findin gs Related to COVID-19. Endorsed by the Society of Thoracic Ra diology, the [place] [employer], and RSNA. Publish ed June 07, 2019. Impression By: Catherine Carlisle M.D. RADIOLOGY - XR CHEST 1 V 12/31 3741 Report Impression - Status: SIGNED Entered: 12/31/2021 0708 IMPRESSION: 1. Stable pulmonary opacities with multifocal co nsolidation and or atelectasis. 2. Stable pleural effusions. 3. Stable postoperative cardiomediastinal silhou ette. Impression By: Catherine Carlisle M.D. Telemetry Interpretation: Vpaced Diagnosis, Assessment Plan Plan discussed with: patient Free Text DxA P Notes Free Text DxA P Notes: Ms Giles is a 76 y/o Femal w / PMHx: CAD, HLD, T2DM, RONA (CPAP at home), smoker, Crohn's disease, AF s/p ablation (on Xarelto), s /p PPM and lymphedema. Dr. Fortune is consulted for CAD s/p CABG, MVR. - CAD s/p CABG, MVR, and ILAA. post-op per CTS and critical care On Plavix, aspirin, beta-delma, statin volume management per Nephrology rotating bipap with high flow NC as tolerated- weaning as tolerated - Chr AF s/p PPM/ablation. Rate controlled, pace d rhythm. had ILAA during bypass - HTN. BP stable - HLD. On statins. - Crohn's disease. Per IM. -MARCELLO - resolving per Nephrology -Resp insufficiency on BIPAP/high flow NC as tolerated per critical care -Diastolic CHF/volume overload diuretic management per nephrology/CTS Slowly improving continue supportive care PT/OT as tolerated at 1553 Electronically Signed by Aruna Fortune MD on at 2331 RPT #:[id number] END OF REPORT 2021-12-31 09:03:00-00:[address] [facility] ([facility] Critical Care Progress Note REPORT#:[id number] REPORT STATUS: Signed DATE:12/31/21 TIME: 902 PATIENT: SAÚL GILES UNIT #: [id number] ROOM/BED: [place] [address] : 43 AGE: 76 SEX: F ATTEND: Ayala More MD ADM AUTHOR: Jd Alva MD * ALL edits or amendments must be made on the [employer]/computer document * Subjective Chief complaint: CABG/MVR HPI: 76-year-old morbidly obese f emale with history of HTN, HL, IDDM, smoking, RONA on CPAP and home O2 as needed, macular degeneration , Crohn's disease on immunosuppressant medication s, and chronic Afib s/p ablation and PPM (on Xarelto ), who was admitted recently with heart failure symptoms. Patient underwent elective cardiac cath that s howed severe multivessel coronary artery disease not suitable for percutaneous intervention. 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 She went for surgical revascularization today and preop JORDEN revealed severe mitral regurgitation. After discussing new findings with family, patient underwent MVR (31 M agna valve), CABG x 1 (ROBERTS-LAD), ILAA and pericardectomy on 12/19/2021. Has EF of 45%. Crystalloid 1 L, urine output 700, Cell Saver 700. She is a-paced at [facility]. Surgery went well and patient was transferred to CVICU pos top in a stable surgical condition. She is currently intubated on 2 mics of epine phrine, 2 mics of Levophed and insulin drip. CI 3.0, SvO2 in 60%s, CVP 15 and PAP in 60s. Comments: Out of bed in the chair sats high 90s on 2L NC, dropped to 60s on RA no new complaints reported Objective General VS/I O Last Documented: Result Date Time O2 Flow Rate 2 12/31 0810 Pulse Ox 99 12/31 0754 FiO2 32 12/31 0754 O2 Delivery High flow nasal cannula 12/31 753 B/P 136/42 12/31 699 B/P Mean 70 12/31 699 Temp 96.8 12/31 699 Pulse 71 12/31 07 Resp 29 12/31 699 24 hour I O ending at 0700: 12/31 0712/30 1900 Intake Total 450.00 1250 Output Total 1400 1850 Balance -950.00 -600 Intake, IV 100.00 Intake, Oral 350 1250 Output, Urine 1400 1850 Patient 121 kg Weight Weight Standing scale Measurement Method PATIENT WEIGHT: Weight (lb): 266 Weight (oz): 12.15 Weight (kg): 121.000 Medications: Active Meds + DC'd Last 24 Hrs Potassium Chloride (POTASSIUM CHLORIDE 20MEQ TAB .ER) 40 MEQ ONCE ONE PO (DC) Potassium Chloride (POTASSIUM CHLORIDE 20MEQ TAB .ER) 40 MEQ DAILY PRN PRN PO Potassium Chloride (K-JN 20 MEQ PACKET) 40 MEQ NOW ONE FEED-TUBE (DC) Insulin Glargine (Lantus/Semglee) 30 UNIT DAILY SUBQ Insulin Glargine (Lantus/Semglee) 20 UNIT BEDTIM E SUBQ Insulin Human Lispro (HUMALOG) 0 AC HS SUBQ Dextrose/Water (DEXTROSE 10% IN WATER) 125 ML DIR PRN IV (CKD) Dextrose/Water (DEXTROSE 10% IN WATER) 250 ML DIR PRN IV (CKD) Glucagon (GLUCAGON) 1 MG ASDIR PRN IM Amiodarone HCl (CORDARONE) 200 MG BID PO Furosemide (LASIX 40 mg/4 mL INJECTION) 40 MG BI D 9A 5P IV Acetazolamide (DIAMOX) 500 MG Q12HR IV Sterile Water (WATER FOR INJECTION) 5 ML ASDIR P RN IV Sterile Water (WATER FOR INJECTION) 5 ML ASDIR P RN IV Sodium Chloride (SODIUM CHLORIDE) 4 ML RTBID NEB Melatonin (Melatonin) 3 MG BEDTIME PO Sodium Chloride (SODIUM CHLORIDE) 10 ML BID IV Sodium Chloride (SODIUM CHLORIDE) 10 ML ASDIR NE N IV Pantoprazole (PROTONIX) 40 MG DAILY PO Dexmedetomidine/Sodium Chloride (PRECEDEX 1000MC G/NS 250ML) 250 ML ASDIR IV Bisacodyl (DULCOLAX) 10 MG DAILY PRN PRN RECTAL Lactulose (LACTULOSE) 20 GM DAILY PRN PRN PO Magnesium Hydroxide (MILK OF MAGNESIA) 30 ML PETER LY PRN PRN PO Aspirin (ASPIRIN) 81 MG DAILY PO Clopidogrel Bisulfate (Plavix) 75 MG DAILY PO Cyanocobalamin (Vitamin B-12 500 mcg tab) 500 MC G DAILY PO Ferrous Sulfate (FERROUS SULFATE) 325 MG DAILY P O Metolazone (metOLazone) 5 MG DAILY PO Polyethylene Glycol (MIRALAX) 17 GM DAILY PO Atorvastatin Calcium (LIPITOR) 40 MG 2100 PO Docusate Sodium (DOCUSATE SODIUM) 100 MG BID PO Metoprolol Tartrate (LOPRESSOR) 12.5 MG Q12HR PO Senna (SENOKOT) 17.6 MG BEDTIME PO Acetaminophen (TYLENOL) 650 MG Q4H PRN PRN PO Insulin Human Regular (HumuLIN R) 100 UNIT ASDIR IV (CKD) Sodium Chloride (SODIUM CHLORIDE 0.9%) 99 ML Acetylcysteine (MUCOMYST FOR RT) 200 MG RTQ6H NE B Albuterol/Ipratropium (DUONEB) 3 ML RTQ6H NEB Bisacodyl (DULCOLAX) 10 MG ONCE PRN RECTAL Dopamine HCl/Dextrose (DOPamine 400MG/D5W 250ML) 250 ML ASDIR IV Milrinone Lactate/Dextrose (MILRINONE 20MG/D5W 1 00ML) 100 ML ASDIR IV ( CKD) Vasopressin (VASOSTRICT 20 Unit/NS 100ML) 100 ML ASDIR IV (CKD) Acetaminophen (TYLENOL) 650 MG Q4H PRN PRN RECTA L Calcium Chloride (CALCIUM CHLORIDE) 1 GM ASDIR P RN IV Dextrose/Water (DEXTROSE 10% IN WATER) 125 ML DIR PRN IV (CKD) Dextrose/Water (DEXTROSE 10% IN WATER) 250 ML DIR PRN IV (CKD) Glucagon (GLUCAGON) 1 MG ASDIR PRN IM Magnesium Sulfate (MAGNESIUM SULFATE 4GM/SWFI 10 0ML) 100 ML ASDIR PRN IV Magnesium Sulfate (MAGNESIUM SULFATE 2GM/SWFI 50 ML) 50 ML ASDIR PRN IV Magnesium Sulfate/Dextrose (MAGNESIUM SULFATE 1G M/D5W 100ML) 100 ML ASDIR PRN IV Nitroglycerin/Dextrose (NITROGLYCERIN 50,000MCG/ D5W 250ML) 250 ML ASDIR IV Norepinephrine Bitartrate (NOREPINEPHRINE 8 MG/N S 250 ML) 250 ML TITRATE IV Potassium Chloride (KCL 20MEQ/SWFI 100ML) 100 ML ASDIR PRN IV Sodium Bicarbonate (SODIUM BICARBONATE) 50 MEQ A SDIR PRN IV Ondansetron HCl (ZOFRAN) 4 MG Q6H PRN PRN IV Results Findings/data: Laboratory Tests 12/31 12/31 0850 0410 Blood Gas Puncture Site Art Line O2 Saturation (90 - 100 %) 66.6 L 96.8 ABG pH (7.35 - 7.45) 7.444 7.393 ABG pCO2 (35.0 - 45 mmHg) 50.4 *H 66.2 *H ABG pO2 (80 - 100.0 mmHg) 33.9 *L 93.0 ABG HCO3 (22.0 - 26.0 MMOL/L) 34.6 *H 40.4 *H ABG Total CO2 36.1 42.5 ABG Base Excess (-4.0 - 4.0 MMOL/L) 10.5 H 15.5 H ABG Hematocrit (33.0 - 45.0 %) 28 L 44 ABG Hemoglobin (11.0 - 15.0 G/DL) 9.4 L 15.1 H Sodium (134 - 147 MEQ/L) 143 146 Potassium (3.4 - 5.0 MEQ/L) 3.6 3.1 L Chloride (100 - 108 MEQ/L) 97 L 96 L Ionized Calcium (1.12 - 1.32 MMOL/L) 1.34 H 1.4 1 H Lactic Acid (0.9 - 1.7 mmol/l) 0.9 0.7 L Temperature (F) 98.2 O2 Delivery Device Room Air Cannula Laboratory Tests 12/31 12/31 12/31 12/31 12/30 0850 0754 0410 0404 2112 Chemistry Sodium (134 - 147 mEq/L) 142 Potassium (3.4 - 5.0 mEq/L) 3.5 Chloride (100 - 108 mEq/L) 101 Carbon Dioxide (21 - 33 mEq/l) 38 H Anion Gap (0 - 20) 7 BUN (7 - 18 mg/dL) 31 H Creatinine (0.6 - 1.3 mg/dL) 0.9 POC Creatinine (0.6 - 1.0 mg/dL) 0.8 1.0 Glomerular Filtr Rate (70 - 80) 60.6 L Glucose (70 - 110 mg/dL) 85 POC Glucose (70 - 110 MG/DL) 82 189 H POC Glucose (mg/dL) (70 - 110 MG/DL) 125 H 83 Calcium (8.0 - 10.5 mg/dL) 9.8 Magnesium (1.80 - 2.40 mg/dL) 2.24 12/30 12/30 12/30 8410 1722 1159 Chemistry Sodium (134 - 147 mEq/L) 144 Potassium (3.4 - 5.0 mEq/L) 3.5 Chloride (100 - 108 mEq/L) 99 L Carbon Dioxide (21 - 33 mEq/l) 38 H Anion Gap (0 - 20) 10 BUN (7 - 18 mg/dL) 38 H Creatinine (0.6 - 1.3 mg/dL) 1.0 Glomerular Filtr Rate (70 - 80) 53.6 L Glucose (70 - 110 mg/dL) 204 H POC Glucose (70 - 110 MG/DL) 213 H 146 H Calcium (8.0 - 10.5 mg/dL) 9.8 Magnesium (1.80 - 2.40 mg/dL) 1.84 Laboratory Tests 12/31 0404 Hematology WBC (4.5 - 11.0 x10 3/uL) 7.9 RBC (3.54 - 5.02 x10 6/uL) 2.36 L Hgb (11.0 - 15.0 g/dL) 8.9 L Hct (33.0 - 45.0 %) 26.0 L MCV (81.0 - 99.0 fL) 110.2 H MCH (27.0 - 33.0 pg) 37.7 H MCHC (33.0 - 37.0 g/dL) 34.2 RDW (11.5 - 14.5 %) 16.8 H Plt Count (150 - 400 x10 3/uL) 220 MPV (7.0 - 9.0 fL) 10.7 H Neut % (Auto) (56.0 - 77.0 %) 83.9 H Lymph % (Auto) (14.0 - 32.0 %) 4.5 L Barron % (Auto) (4.8 - 9.0 %) 8.5 Eos % (Auto) (0.3 - 3.7 %) 1.5 Baso % (Auto) (0.0 - 2.0 %) 0.3 Neut # (Auto) (2.0 - 7.6 x10 3/uL) 6.60 Lymph # (Auto) (1.0 - 3.8 x10 3/uL) 0.35 L Barron # (Auto) (0.1 - 0.8 x10 3/uL) 0.67 Eos # (Auto) (0.0 - 0.2 x10 3/uL) 0.12 Baso # (Auto) (0.0 - 0.2 x10 3/uL) 0.02 Abs Immat Gran (auto) (0.00 - 0.03 x10 3/uL) 0. 10 H Add Manual Diff NO Immature Gran % (0.0 - 2.0 %) 1.3 Nucleated RBC % (0 - 0 %) 0.6 H Nucleated RBCs # (Man) (0.0 - 0.1 x10 3/uL) 0.0 5 Laboratory Tests 12/31/21 0404: [Embedded Image Not Available] 12/30/21 1840: [Embedded Image Not Available] Radiology data Recent Impressions: CAT SCAN - CT CHEST W/O CONTRAST 12/30 1316 Report Impression - Status: SIGNED Entered: 12/30/2021 1433 IMPRESSION: 1. Bilateral multifocal ground-glass pulmonary o pacities with associated interstitial septal thickening. Edema and inflammation in the differential. Imaging features can be see n with COVID-19 pneumonia, though are nonspecific and can occur with a variety of infectious and noninfectious processes. (Referen ce: Michael) 2. Partial atelectasis of the lower lobes with a dditional foci of subsegmental atelectasis and or consolidation. 3. Small bilateral pleural effusions. 4. Postoperative changes of CABG. Stable cardiom egaly. Trace pericardial fluid. Small volume anterior mediast inal hematoma/seroma. REFERENCES: Michael Vinson, et al., Radiological Society of [place] Expert Consensus Statement on Reporting Chest CT Findin gs Related to COVID-19. Endorsed by the Society of Thoracic Ra diology, the [place], and RSNA. Publish ed June 07, 2019. Impression By: Catherine Carlisle M.D. RADIOLOGY - XR CHEST 1 V 12/31 0629 Report Impression - Status: SIGNED Entered: 12/31/2021 0708 IMPRESSION: 1. Stable pulmonary opacities with multifocal co nsolidation and or atelectasis. 2. Stable pleural effusions. 3. Stable postoperative cardiomediastinal silhou ette. Impression By: Catherine Carlisle M.D. 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 S/P MVR (mitral valve replacement) 2. S/P CABG x 1 3. Postoperative pulmonary dysfunction after ca rdiac surgery 4. Severe mitral regurgitation 5. CAD (coronary artery disease) 6. CKD (chronic kidney disease) 7. Immunosuppressed status 8. RONA on CPAP 9. Chronic a-fib 10. Crohn disease Free text A P: 76-year-old morbidly obese f emale with history of HTN, HL, IDDM, smoking, RONA on CPAP and home O2 as needed, macular degeneration , Crohn's disease on immunosuppressant medication s, and chronic Afib s/p ablation and PPM (on Xarelto ), who was admitted recently with heart failure symptoms. Patient underwent elective cardiac cath that s howed severe multivessel coronary artery disease not suitable for percutaneous intervention. 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 She went for surgical revascularization today and preop JORDEN revealed severe mitral regurgitation. After discussing new findings with family, patient underwent MVR (31 M agna valve), CABG x 1 (ROBERTS-LAD), ILAA and pericardectomy on 12/19/2021. Has EF of 45%. Crystalloid 1 L, urine output 700, Cell Saver 700. She is a-paced at [employer]. Surgery went well and patient was transferred to CVICU pos top in a stable surgical condition. She is currently intubated on 2 mics of epine phrine, 2 mics of Levophed and insulin drip. CI 3.0, SvO2 in 60%s, CVP 15 and PAP in 60s. Remains neuro intact, multimodal pain control, a void opiates Patient is on BiPAP at night for underlying RONA home CPAP as needed 14-18. She is on nasal cannula [address] shows worsening pulmonary edema and a telectasis. Also has pleural effusions ultrasound not a big pocket to safely tap. Duo nebs and Mucomyst. Encourage incentive laz metry. Family at bedside during spirometry with her. Patient is being diuresed with Lasix twice daily and Diamox twice daily. She does have respiratory acidos is with metabolic alkalosis which is balanced with a pH of 7.39. Renal following White count is stable. No signs of infection or fever. Continue to monitor. Hemoglobin is stable. Continue beta-delma and amiodarone. Paced rhyt hm Patient is on insulin drip for control of her quintana gars. Increase Lantus to 30 twice daily. Patient still has [place] for accurate ins and out s Total critical care time 40 minutes 12/29 Waxing and waning mental status, continue melato andrzej at bedtime Continue supplemental oxygen and titrate FiO2 to keep saturation more than 90%, on 6 L nasal cannula, alternating with BiPAP 18/ 7 and 30% Continue follow ABGs and chest x-rays Inhaled bronchodilators as needed Encourage incentive spirometry White count is stable. No signs of infection or fever. Continue to monitor. Hemoglobin is stable. Continue beta-delma and amiodarone. Diuresis with Bumex 500 mg every 12 hours. Recei laury 1 dose of Lasix IV x1 earlier in the morning Monitor kidney function and trend creatinine Monitor and replete electrolytes Strict I O's Cardiac diet with bowel regimen Decreased Lantus insulin to 20 5 in the morning and 20 at night Continue monitoring blood glucose VTE prophylaxis Stress ulcer prophylaxis Discussed with ICU team, CV surgery and daughter Critical care time 39 minutes 12/30 Neuro status appears at base line, avoid narcotics and sedatives, monitor for CO2 narcosis Sats well on HFNC, wean O2 for goal sats in high 80s, obtain ABG as needed, BiPAP use for uncompensated hypercapnia, CXR and CT chest reviewed Blood pressures appear controlled, continue card iac medications Creatinine appears stable, continue diuresis, mo nitor urine output Tolerating oral diet, has BM/BR, replete hypokal emia No fevers or leukocytosis, completed antibiotic course for UTI Hemoglobin low but stable, no evidence of active bleed Blood glucose control with SSI and Lantus Encourage PT/OT and out of bed as tolerated, vicki n for IPR DVT and GI prophylaxis with DAPT and PPI 12/31 Neuro intact, avoid narcotics and sedatives, mon itor for CO2 narcosis Sats drops on RA, keep NC for goal sats in high 80s, ABG and BiPAP as needed, CXR reviewed Blood pressures appear controlled, continue card iac medications, on BB, amiodarone and statin Creatinine remains stable, good urine output, co ntinue diuresis per renal Tolerating oral diet, bowel regimen, nutrition s upport, replete hypokalemia No fevers or leukocytosis, completed antibiotic course for UTI Hemoglobin appears stable, no evidence of active bleed Blood glucose control with SSI and Lantus Encourage PT/OT and out of bed as tolerated, vicki n for IPR DVT and GI prophylaxis with DAPT and PPI Consultants: cardiology, cardiovascular surgery Plan discussed with: patient , consultants, nurse, interdisc care team, pharmacy/ pharmacist Critical care time: Minutes: 37 Electronically Signed by Jd Alva MD on 12/14 at 2241 RPT #:[id number] END OF REPORT 2021-12-30 20:47:00-00:00 [facility] Rehab Progress Note REPORT#:[id number] REPORT STATUS: Signed DATE:12/30/21 TIME: 2046 PATIENT: SAÚL GILES UNIT #: [id number] ROOM/BED: [place] [address] : 43 AGE: 76 SEX: F ATTEND: Leah More MD ADM AUTHOR: Alicia Pantoja CHILD WATCH ATTENDANT * ALL edits or amendments must be made on the [employer]/computer document * Subjective Chief complaint: rehab follow-up OOB in chair with N/C very fatigue appearance Significant generalized weakness, fatigue No GOLD/N/V/D 14 systems reviewed and negative except that men tioned above. Objective Physical Exam Psych: alert, oriented x 3 HEENT: anicteric, mucosal membranes moist Neck: supple, no JVD Cardiovascular: regular rate rhythm, no murmur Respiratory: diminished breath sounds (bases ), on oxygen (Hi flow O2 ) Abdomen: bowel sounds present, non-distended, so ft, non-tender Skin: dry, intact, no rash, incisions D/I Musculoskeletal - general: Musculoskeletal - general: swelling (BLE +3), m oving all ext AG 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, 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, normal speech, n o motor deficits, no sensory deficits Diagnosis, Assessment Plan Free Text A P: 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 fib Hypoxic respiratory failure Plan: Continue PT/OT Out of bed to chair Work on strength, bed mobility, transfers, gait Increase endurance Fall precautions Monitor p.o. intake and nutrition Strict decubitus precautions Monitor anemia Advance therapies as tolerated Tolerating regular diet Continue diuresis- monitor strict I Os Lasix drip discontinued. Started on IV Lasix and Diamox Weigh patient daily Advance therapies as tolerated CLOF with therapy RW 100ft with 6 rest breaks MICHEAL O2 sats 88-91% on 5L N/C increased to 6L during therapy Will eventually need IRF when medically ready. CLOF with therapy Ambulation 20 feet, 5 feet, 15 feet x 2 moderate assistance with rolling walker, shuffling gait short steps head down TT: 34 mins, reviewing chart, notes, labs, meds, therapy notes, discussed medical mgt, and rehab poc, goals. Answered all questions Rehab attestation: Face to face exam completed. Treatment plan disc ussed with patient. at 2050 RPT #:[id number] END OF REPORT 2021-12-30 19:58:00-00:00 [facility] Progress Note REPORT#:[id number] REPORT STATUS: Signed DATE:12/30/21 TIME: 1957 PATIENT: SAÚL GILES UNIT #: [id number] ROOM/BED: [place] [address] : 43 AGE: 76 SEX: F ATTEND: Leah More MD ADM AUTHOR: Suki Fuchs MD * ALL edits or amendments must be made on the [facility]/computer document * Subjective Chief complaint: chest pain HPI: This is a 76-year-old female who has past medica l history of hypertension, diabetes, coronary artery disease, atrial fibril lation who presented with worsening shortness of breath and on further wor k-up was 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 She was with normal kidney function prior to surgery and afte r her surgery she began to develop oliguria. Her procedure was done without any complications but after her surgery she did require pressor support for hypotension and she was intubated for respiratory acidosis and hypoxia a nd she was treated with vancomycin for infection treatment. When she was seen this morning she continued to have hypotension and her heart rate was paced by her permanent pacemaker and her urine outp ut was 20 to 30/h. Her family at bedside denied any history of kidney disease, kidney stone, chronic NSAID use or any urinary complaints. They also endorse that her b lood pressure and diabetes were mostly controlled. 12/30 Today she was comfortable, volume improving with IV lasix. Objective General VS/I O: Vital Signs: Date Time Temp Pulse Resp B/P B/P Pulse O2 O2 F low FiO2 Mean Ox Delivery Rate 12/30 0915 35.9 73 22 127/44 70 82 / 0900 35.9 72 26 133/43 70 10/ 0830 35.8 73 31 121/45 69 79 10/ 0815 35.8 76 28 140/49 79 97 10/18 0800 35.8 72 21 136/47 75 94 10/ 0748 98 High flow 5 nasal cannula 10/ 0745 35.8 75 22 135/47 76 98 10/18 0730 High flow 5 nasal cannula 10/ 0730 35.8 69 19 108/47 69 96 10/18 0715 35.9 75 18 100/51 72 97 10/18 0700 35.9 75 19 145/61 86 100 10/18 0636 36.0 71 12 124/40 64 100 10/18 0630 36.0 69 12 112/37 58 100 10/18 0615 36.0 106 22 144/49 78 100 10/18 0609 137/65 87 10/18 0609 36.0 72 20 144/48 77 100 10/18 0605 85/54 65 10/18 0605 73 29 143/47 76 97 10/18 0600 74 28 137/135 136 10/18 0545 36.0 76 31 141/52 83 94 10/18 0530 36.0 73 19 128/46 74 89 10/18 0515 36.1 72 21 132/46 75 90 10/18 0501 143/63 91 10/18 0501 36.1 71 22 133/49 78 90 10/18 0500 36.1 71 22 129/49 77 90 10/18 0445 36.2 72 24 135/50 78 90 10/18 0430 36.3 72 29 86/58 72 95 10/18 0415 36.3 69 23 108/45 65 100 10/18 0400 115/57 82 10/18 0400 36.3 71 22 107/47 67 100 10/18 0345 36.3 71 25 100/43 61 100 10/18 0330 36.3 72 26 116/51 75 100 10/18 0320 70 100 40 10/18 0315 36.3 69 22 92/40 57 100 10/18 0300 119/84 98 10/18 0300 36.3 73 29 128/55 82 93 10/18 0255 36.3 70 28 120/51 76 99 10/18 0245 36.4 72 29 123/53 78 99 10/18 0230 36.4 71 29 116/50 74 99 10/18 0215 36.4 71 33 126/53 78 100 10/18 0200 117/57 82 10/18 0200 36.4 75 28 108/52 75 100 10/18 0145 36.4 72 22 114/51 75 100 10/18 0130 36.4 76 24 124/56 81 100 10/18 0115 36.5 69 21 123/53 78 100 10/18 0100 123/58 84 10/18 0100 36.5 70 27 114/49 72 100 10/18 0045 36.5 73 23 101/46 65 100 10/18 0030 36.5 72 21 99/46 65 100 10/18 0015 36.5 73 29 121/56 80 98 10/18 0003 131/58 84 10/18 0003 36.5 72 22 89/53 70 100 10/18 0000 98/65 76 10/18 0000 36.5 76 23 142/56 87 100 10/17 2347 76 100 40 10/17 2345 36.5 75 24 141/53 84 100 10/17 2330 36.6 75 33 138/51 80 88 10/17 2315 36.5 69 26 128/47 73 100 10/17 2300 100/49 70 10/17 2300 36.5 70 26 103/39 58 100 12/29 2245 36.5 69 22 118/47 69 100 12/29 2230 99/49 71 12/29 223 36.4 69 26 104/38 56 100 12/29 2228 100/50 72 12/29 2228 36.4 69 23 106/38 57 100 12/298 107/53 76 12/29 2228 36.4 69 25 109/39 59 100 12/29 2226 113/52 76 12/29 222 36.4 69 24 112/40 61 100 12/29 2225 114/56 80 12/29 222 36.4 69 23 114/42 63 100 12/29 2215 36.4 72 25 108/36 56 100 12/29 2200 36.3 72 27 127/43 67 100 12/29 2145 36.3 71 19 115/39 59 100 12/29 2135 71 100 40 12/29 2130 36.2 71 19 129/41 66 100 12/29 2114 36.2 71 25 133/42 69 94 12/29 2100 36.2 70 22 140/46 74 100 12/29 2044 36.2 72 26 150/49 79 100 12/29 2029 36.3 69 35 147/46 76 97 12/29 2029 98 High flow 10 nasal cannula 12/29 2014 36.3 72 36 144/47 76 96 12/30 1999 36.9 12/30 1999 Nasal 10 cannula 12/30 1999 36.3 72 18 146/47 76 100 24 hour I O ending at 0700: 12/30 0700 12/29 1900 Intake Total 480 Output Total 1005 1275 Balance -525 -1275 Intake, Oral 480 Output, Urine 1005 1275 Patient 122.9 kg Weight Weight Standing scale Measurement Method PATIENT WEIGHT: Weight (lb): 270 Weight (oz): 15.17 Weight (kg): 122.900 Physical Exam General appearance: alert, awake, oriented Head/eyes: atraumatic, normocephalic ENT: moist mucous membranes, normal nose Neck: no JVD, no lymphadenopathy Cardiovascular: normal heart sounds, regular rat e and rhythm Respiratory: aerating well, clear to auscultatio n Abdomen: soft, no pulsatile mass Genitourinary: urinary catheter Extremities: no gangrene, no swelling Treatment Prophylaxis Treatment Prophylaxis Drain(s)/tube(s): Drain(s)/tube(s): chest (x3) Diagnosis, Assessment Plan Free Text A P: This is a 76-year-old female known to have hyper tension, diabetes, atrial fibrillation, s/p permanent pacemaker and histor y of ablation presenting with shortness of breath and found to have multivesse l coronary artery disease therefore she had CABG on December 19 after which she has developed oliguria. Nephrology is following for: 1. Acute kidney injury: Most likely it i s prerenal (cardiorenal), she has been hypotensive postoperatively with require ment for pressor support and inotropic support. Plan is to increase inotropic support or pressor support to bring mean arterial pressure above 65 and give albumin with Lasix to see if it helps him diurese. If he does not respond to higher dose L asix with albumin then I will consider starting him on CRRT to prevent hyper v olemia. 2. Hypervolemia: Plan is to give Lasix a nd if he does not respond to start him on CRRT for extra fluid removal. 3. His electrolytes were all reviewed to be in normal range plan was to monitor and replace as needed. 4. He was receiving vancomycin so plan w as to monitor vancomycin trough levels to prevent ATN. 5/ Metabolic alkalosis secondary to diur etics : Plan to give acetazoleamide if worsening. 12/27 1. Acute kidney injury: Resolved, she is respond ing to lasix. 2. Hypervolemia: Plan to continue lasix as tolerated.Today she was on low dose twice daily lasix. 3. Hypokalemia/hypomagnesemia:secondary to diure tics, plan was to monitor and replace as needed. 4. She was receiving vancomy sanjana so plan was to monitor vancomycin trough levels to prevent ATN. 5/ Metabolic alkalosis secon lilli to diuretics : Plan to give acetazoleamide and monitor closely. 12/28 1. Acute kidney injury: Resolved, she is respond ing to lasix. 2. Hypervolemia: Plan to continue lasix as tolerated.Today she was on low dose twice daily lasix. 3. Hypokalemia/hypomagnesemia:secondary to diure tics, plan was to monitor and replace as needed. 4. She was receiving vancomy sanjana so plan was to monitor vancomycin trough levels to prevent ATN. 5/ Metabolic alkalosis secon lilli to diuretics : Plan to give acetazoleamide and monitor closely. 12/28 1. Acute kidney injury: Resolved, she is respond ing to lasix. 2. Hypervolemia: Plan to continue lasix as tolerated.Today she was on low dose twice daily lasix. 3. Hypokalemia/hypomagnesemia:secondary to diure tics, plan was to monitor and replace as needed. 4. She was receiving vancomy sanjana so plan was to monitor vancomycin trough levels to prevent ATN. 5/ Metabolic alkalosis secon lilil to diuretics : Plan to give acetazoleamide and monitor closely. 12/29 1. Acute kidney injury: Resolved, she is respond ing to lasix. 2. Hypervolemia: Plan to continue lasix as tolerated.Today she was on low dose twice daily lasix. 3. Hypokalemia/hypomagnesemia:secondary to diure tics, plan was to monitor and replace as needed. 4. She was receiving vancomy sanjana so plan was to monitor vancomycin trough levels to prevent ATN. 5/ Metabolic alkalosis secon lilli to diuretics : Plan to give acetazoleamide and monitor closely. 12/30 1. Acute kidney injury: Resolved, she is respond ing to lasix. 2. Hypervolemia: Plan to continue lasix as tolerated.Today she was on low dose twice daily lasix. 3. Hypokalemia/hypomagnesemia:secondary to diure tics, plan was to monitor and replace as needed. 4. Metabolic alkalosis secondary to diuretics : Plan to continue acetazoleamide and monitor closely. Consultants: cardiology, cardiovascular surgery Electronically Signed by Suki Fuchs MD on at 2001 RPT #:[id number] END OF REPORT 2021-12-30 16:50:00-00:[address] [facility] ([facility] Critical Care Progress Note REPORT#:[id number] REPORT STATUS: Signed DATE:12/30/21 TIME: 1649 PATIENT: SAÚL GILES UNIT #: [id number] ROOM/BED: [place] [address] : 43 AGE: 76 SEX: F ATTEND: Leah More MD ADM AUTHOR: Jd Alva MD * ALL edits or amendments must be made on the [employer]/computer document * Subjective Chief complaint: CABG/MVR HPI: 76-year-old morbidly obese f emale with history of HTN, HL, IDDM, smoking, RONA on CPAP and home O2 as needed, macular degeneration , Crohn's disease on immunosuppressant medication s, and chronic Afib s/p ablation and PPM (on Xarelto ), who was admitted recently with heart failure symptoms. Patient underwent elective cardiac cath that s howed severe multivessel coronary artery disease not suitable for percutaneous intervention. 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 She went for surgical revascularization today and preop JORDEN revealed severe mitral regurgitation. After discussing new findings with family, patient underwent MVR (31 M agna valve), CABG x 1 (ROBERTS-LAD), ILAA and pericardectomy on 12/19/2021. Has EF of 45%. Crystalloid 1 L, urine output 700, Cell Saver 700. She is a-paced at [facility] [employer]. Surgery went well and patient was transferred to CVICU pos top in a stable surgical condition. She is currently intubated on 2 mics of epine phrine, 2 mics of Levophed and insulin drip. CI 3.0, SvO2 in 60%s, CVP 15 and PAP in 60s. Comments: Out of bed in the chair Intermittently on BiPAP Diuresing, urine output 1 L Tolerating oral diet, had BM Objective General VS/I O Last Documented: Result Date Time Pulse Ox 82 12/30 914 B/P 127/44 12/30 914 B/P Mean 70 12/30 914 Temp 96.6 12/30 914 Pulse 73 12/30 914 Resp 22 12/30 914 O2 Delivery High flow nasal cannula 12/31 747 O2 Flow Rate 5 12/30 0748 FiO2 40 12/30 0320 24 hour I O ending at 0700: 12/30 0700 12/29 1900 Intake Total 480 Output Total 1005 1275 Balance -525 -1275 Intake, Oral 480 Output, Urine 1005 1275 Patient 122.9 kg Weight Weight Standing scale Measurement Method PATIENT WEIGHT: Weight (lb): 270 Weight (oz): 15.17 Weight (kg): 122.900 Medications: Active Meds + DC'd Last 24 Hrs Potassium Chloride (POTASSIUM CHLORIDE 20MEQ TAB .ER) 40 MEQ DAILY PRN PRN PO Potassium Chloride (K-JN 20 MEQ PACKET) 40 MEQ NOW ONE FEED-TUBE (DC) Insulin Glargine (Lantus/Semglee) 30 UNIT DAILY SUBQ Potassium Chloride (POTASSIUM CHLORIDE 20MEQ TAB .ER) 40 MEQ ONCE ONE PO (DC) Insulin Glargine (Lantus/Semglee) 20 UNIT BEDTIM E SUBQ Insulin Human Lispro (HUMALOG) 0 AC HS SUBQ Dextrose/Water (DEXTROSE 10% IN WATER) 125 ML DIR PRN IV (CKD) Dextrose/Water (DEXTROSE 10% IN WATER) 250 ML DIR PRN IV (CKD) Glucagon (GLUCAGON) 1 MG ASDIR PRN IM Amiodarone HCl (CORDARONE) 200 MG BID PO Furosemide (LASIX 40 mg/4 mL INJECTION) 40 MG BI D 9A 5P IV Acetazolamide (DIAMOX) 500 MG Q12HR IV Sterile Water (WATER FOR INJECTION) 5 ML ASDIR P RN IV Sterile Water (WATER FOR INJECTION) 5 ML ASDIR P RN IV Sodium Chloride (SODIUM CHLORIDE) 4 ML RTBID NEB Melatonin (Melatonin) 3 MG BEDTIME PO Sodium Chloride (SODIUM CHLORIDE) 10 ML BID IV Sodium Chloride (SODIUM CHLORIDE) 10 ML ASDIR NE N IV Pantoprazole (PROTONIX) 40 MG DAILY PO Dexmedetomidine/Sodium Chloride (PRECEDEX 1000MC G/NS 250ML) 250 ML ASDIR IV Bisacodyl (DULCOLAX) 10 MG DAILY PRN PRN RECTAL Lactulose (LACTULOSE) 20 GM DAILY PRN PRN PO Magnesium Hydroxide (MILK OF MAGNESIA) 30 ML PETER LY PRN PRN PO Aspirin (ASPIRIN) 81 MG DAILY PO Clopidogrel Bisulfate (Plavix) 75 MG DAILY PO Cyanocobalamin (Vitamin B-12 500 mcg tab) 500 MC G DAILY PO Ferrous Sulfate (FERROUS SULFATE) 325 MG DAILY P O Metolazone (metOLazone) 5 MG DAILY PO Polyethylene Glycol (MIRALAX) 17 GM DAILY PO Atorvastatin Calcium (LIPITOR) 40 MG 2100 PO Docusate Sodium (DOCUSATE SODIUM) 100 MG BID PO Metoprolol Tartrate (LOPRESSOR) 12.5 MG Q12HR PO Senna (SENOKOT) 17.6 MG BEDTIME PO Acetaminophen (TYLENOL) 650 MG Q4H PRN PRN PO Insulin Human Regular (HumuLIN R) 100 UNIT ASDIR IV (CKD) Sodium Chloride (SODIUM CHLORIDE 0.9%) 99 ML Acetylcysteine (MUCOMYST FOR RT) 200 MG RTQ6H NE B Albuterol/Ipratropium (DUONEB) 3 ML RTQ6H NEB Bisacodyl (DULCOLAX) 10 MG ONCE PRN RECTAL Dopamine HCl/Dextrose (DOPamine 400MG/D5W 250ML) 250 ML ASDIR IV Milrinone Lactate/Dextrose (MILRINONE 20MG/D5W 1 00ML) 100 ML ASDIR IV ( CKD) Vasopressin (VASOSTRICT 20 Unit/NS 100ML) 100 ML ASDIR IV (CKD) Acetaminophen (TYLENOL) 650 MG Q4H PRN PRN RECTA L Calcium Chloride (CALCIUM CHLORIDE) 1 GM ASDIR P RN IV Dextrose/Water (DEXTROSE 10% IN WATER) 125 ML DIR PRN IV (CKD) Dextrose/Water (DEXTROSE 10% IN WATER) 250 ML DIR PRN IV (CKD) Glucagon (GLUCAGON) 1 MG ASDIR PRN IM Magnesium Sulfate (MAGNESIUM SULFATE 4GM/SWFI 10 0ML) 100 ML ASDIR PRN IV Magnesium Sulfate (MAGNESIUM SULFATE 2GM/SWFI 50 ML) 50 ML ASDIR PRN IV Magnesium Sulfate/Dextrose (MAGNESIUM SULFATE 1G M/D5W 100ML) 100 ML ASDIR PRN IV Nitroglycerin/Dextrose (NITROGLYCERIN 50,000MCG/ D5W 250ML) 250 ML ASDIR IV Norepinephrine Bitartrate (NOREPINEPHRINE 8 MG/N S 250 ML) 250 ML TITRATE IV Potassium Chloride (KCL 20MEQ/SWFI 100ML) 100 ML ASDIR PRN IV Sodium Bicarbonate (SODIUM BICARBONATE) 50 MEQ A SDIR PRN IV Ondansetron HCl (ZOFRAN) 4 MG Q6H PRN PRN IV Results Findings/data: Laboratory Tests 12/30 12/30 0843 0449 Blood Gas Puncture Site L Radial Art Line O2 Saturation (90 - 100 %) 87.8 L 89.8 L ABG pH (7.35 - 7.45) 7.373 7.355 ABG pCO2 (35.0 - 45 mmHg) 60.9 *H 68.7 *H ABG pO2 (80 - 100.0 mmHg) 57.7 L 61.3 L ABG PO2/FiO2 Ratio (mm/Hg) 153.25 ABG HCO3 (22.0 - 26.0 MMOL/L) 35.5 *H 38.7 *H ABG Total CO2 37.3 40.8 ABG Base Excess (-4.0 - 4.0 MMOL/L) 10.2 H 12.9 H ABG Hematocrit (33.0 - 45.0 %) 24 L 22 L ABG Hemoglobin (11.0 - 15.0 G/DL) 8.3 L 7.6 L Martin Test N/A Sodium (134 - 147 MEQ/L) 145 142 Potassium (3.4 - 5.0 MEQ/L) 3.1 L 3.1 L Chloride (100 - 108 MEQ/L) 100 94 L Ionized Calcium (1.12 - 1.32 MMOL/L) 1.31 1.34 H Lactic Acid (0.9 - 1.7 mmol/l) 0.7 L 0.5 L Temperature (F) 98.6 97.2 O2 Delivery Device HFNC BiPAP Vent Rate (/MIN) 20 FiO2 (%) 40 PEEP (cmH2O) 8 Laboratory Tests 12/30 12/30 12/30 12/30 12/29 1159 0843 0440 444 2011 Chemistry Sodium (134 - 147 mEq/L) 143 Potassium (3.4 - 5.0 mEq/L) 3.3 L Chloride (100 - 108 mEq/L) 98 L Carbon Dioxide (21 - 33 mEq/l) 38 H Anion Gap (0 - 20) 10 BUN (7 - 18 mg/dL) 35 H Creatinine (0.6 - 1.3 mg/dL) 1.0 POC Creatinine (0.6 - 1.0 mg/dL) 1.0 1.3 H Glomerular Filtr Rate (70 - 80) 53.6 L Glucose (70 - 110 mg/dL) 110 POC Glucose (70 - 110 MG/DL) 146 H 185 H POC Glucose (mg/dL) (70 - 110 MG/DL) 103 112 H Calcium (8.0 - 10.5 mg/dL) 9.9 Magnesium (1.80 - 2.40 mg/dL) 2.23 12/29 1742 Chemistry POC Glucose (70 - 110 MG/DL) 197 H Laboratory Tests 12/30 1008 Hematology WBC (4.5 - 11.0 x10 3/uL) 8.8 RBC (3.54 - 5.02 x10 6/uL) 1.86 L Hgb (11.0 - 15.0 g/dL) 7.4 L Hct (33.0 - 45.0 %) 21.6 L MCV (81.0 - 99.0 fL) 116.1 H MCH (27.0 - 33.0 pg) 39.8 H MCHC (33.0 - 37.0 g/dL) 34.3 RDW (11.5 - 14.5 %) 19.2 H Plt Count (150 - 400 x10 3/uL) 204 MPV (7.0 - 9.0 fL) 10.8 H Neut % (Auto) (56.0 - 77.0 %) 82.8 H Lymph % (Auto) (14.0 - 32.0 %) 4.9 L Barron % (Auto) (4.8 - 9.0 %) 8.6 Eos % (Auto) (0.3 - 3.7 %) 1.8 Baso % (Auto) (0.0 - 2.0 %) 0.2 Neut # (Auto) (2.0 - 7.6 x10 3/uL) 7.24 Lymph # (Auto) (1.0 - 3.8 x10 3/uL) 0.43 L Barron # (Auto) (0.1 - 0.8 x10 3/uL) 0.75 Eos # (Auto) (0.0 - 0.2 x10 3/uL) 0.16 Baso # (Auto) (0.0 - 0.2 x10 3/uL) 0.02 Abs Immat Gran (auto) (0.00 - 0.03 x10 3/uL) 0. 15 H Add Manual Diff NO Immature Gran % (0.0 - 2.0 %) 1.7 Nucleated RBC % (0 - 0 %) 0.5 H Nucleated RBCs # (Man) (0.0 - 0.1 x10 3/uL) 0.0 4 Laboratory Tests 12/30/21 0445: [Embedded Image Not Available] Radiology data Recent Impressions: RADIOLOGY - XR CHEST 1 V 12/30 0612 Report Impression - Status: SIGNED Entered: 12/30/2021 0706 IMPRESSION: 1. Bilateral pulmonary opacities with multifocal airspace disease. Progression of disease in the right upper lobe. Edema and pneumonia in the differential. 2. Stable pleural effusions with bibasilar atele ctasis and or airspace disease. Impression By: Catherine Carlisle M.D. CAT SCAN - CT CHEST W/O CONTRAST 12/30 1316 Report Impression - Status: SIGNED Entered: 12/30/2021 1433 IMPRESSION: 1. Bilateral multifocal ground-glass pulmonary o pacities with associated interstitial septal thickening. Edema and inflammation in the differential. Imaging features can be see n with COVID-19 pneumonia, though are nonspecific and can occur with a variety of infectious and noninfectious processes. (Referen ce: Michael) 2. Partial atelectasis of the lower lobes with a dditional foci of subsegmental atelectasis and or consolidation. 3. Small bilateral pleural effusions. 4. Postoperative changes of CABG. Stable cardiom egaly. Trace pericardial fluid. Small volume anterior mediast inal hematoma/seroma. REFERENCES: Michael Vinson et al., Radiological Society of [place] Expert Consensus Statement on Reporting Chest CT Findin gs Related to COVID-19. Endorsed by the Society of Thoracic Ra diology, the [place] [employer], and RSNA. Publish ed June 07, 2019. Impression By: Catherine Carlisle M.D. 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 S/P MVR (mitral valve replacement) 2. S/P CABG x 1 3. Postoperative pulmonary dysfunction after ca rdiac surgery 4. Severe mitral regurgitation 5. CAD (coronary artery disease) 6. CKD (chronic kidney disease) 7. Immunosuppressed status 8. RONA on CPAP 9. Chronic a-fib 10. Crohn disease Free text A P: 76-year-old morbidly obese f emale with history of HTN, HL, IDDM, smoking, RONA on CPAP and home O2 as needed, macular degeneration , Crohn's disease on immunosuppressant medication s, and chronic Afib s/p ablation and PPM (on Xarelto ), who was admitted recently with heart failure symptoms. Patient underwent elective cardiac cath that s howed severe multivessel coronary artery disease not suitable for percutaneous intervention. 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 She went for surgical revascularization today and preop JORDEN revealed severe mitral regurgitation. After discussing new findings with family, patient underwent MVR (31 M agna valve), CABG x 1 (ROBERTS-LAD), ILAA and pericardectomy on 12/19/2021. Has EF of 45%. Crystalloid 1 L, urine output 700, Cell Saver 700. She is a-paced at [employer]. Surgery went well and patient was transferred to CVICU pos top in a stable surgical condition. She is currently intubated on 2 mics of epine phrine, 2 mics of Levophed and insulin drip. CI 3.0, SvO2 in 60%s, CVP 15 and PAP in 60s. Remains neuro intact, multimodal pain control, a void opiates Patient is on BiPAP at night for underlying RONA home CPAP as needed 14-18. She is on nasal cannula [address] shows worsening pulmonary edema and a telectasis. Also has pleural effusions ultrasound not a big pocket to safely tap. Duo nebs and Mucomyst. Encourage incentive laz metry. Family at bedside during spirometry with her. Patient is being diuresed with Lasix twice daily and Diamox twice daily. She does have respiratory acidos is with metabolic alkalosis which is balanced with a pH of 7.39. Renal following White count is stable. No signs of infection or fever. Continue to monitor. Hemoglobin is stable. Continue beta-delma and amiodarone. Paced rhyt Patient is on insulin drip for control of her quintana gars. Increase Lantus to 30 twice daily. Patient still has [place] for accurate ins and out s Total critical care time 40 minutes 12/29 Waxing and waning mental status, continue melato andrzej at bedtime Continue supplemental oxygen and titrate FiO2 to keep saturation more than 90%, on 6 L nasal cannula, alternating with BiPAP 18/ 7 and 30% Continue follow ABGs and chest x-rays Inhaled bronchodilators as needed Encourage incentive spirometry White count is stable. No signs of infection or fever. Continue to monitor. Hemoglobin is stable. Continue beta-delma and amiodarone. Diuresis with Bumex 500 mg every 12 hours. Recei laury 1 dose of Lasix IV x1 earlier in the morning Monitor kidney function and trend creatinine Monitor and replete electrolytes Strict I O's Cardiac diet with bowel regimen Decreased Lantus insulin to 20 5 in the morning and 20 at night Continue monitoring blood glucose VTE prophylaxis Stress ulcer prophylaxis Discussed with ICU team, CV surgery and daughter Critical care time 39 minutes 12/30 Neuro status appears at base line, avoid narcotics and sedatives, monitor for CO2 narcosis Sats well on HFNC, wean O2 for goal sats in high 80s, obtain ABG as needed, BiPAP use for uncompensated hypercapnia, CXR and CT chest reviewed Blood pressures appear controlled, continue card iac medications Creatinine appears stable, continue diuresis, mo nitor urine output Tolerating oral diet, has BM/BR, replete hypokal emia No fevers or leukocytosis, completed antibiotic course for UTI Hemoglobin low but stable, no evidence of active bleed Blood glucose control with SSI and Lantus Encourage PT/OT and out of bed as tolerated, vicki n for IPR DVT and GI prophylaxis with DAPT and PPI Consultants: cardiology, cardiovascular surgery Plan discussed with: patient , consultants, nurse, interdisc care team, pharmacy/ pharmacist Critical care time: Minutes: 37 Electronically Signed by Jd Alva MD on 12/14 at 2241 RPT #:[id number] END OF REPORT 2021-12-30 14:53:00-00:00 [facility] ([facility]) Nephrology Progress Note REPORT#:[id number] REPORT STATUS: Signed DATE:12/30/21 TIME: 1453 PATIENT: SAÚL GILES UNIT #: [id number] ROOM[facility]BED: [facility] : [facility] AGE: 76 SEX: F ATTEND: Leah More MD ADM AUTHOR: Suki Fuchs MD * ALL edits or amendments must be made on the [employer]/computer document * Subjective Chief complaint: chest pain HPI: This is a 76-year-old female who has past medica l history of hypertension, diabetes, coronary artery disease, atrial fibril lation who presented with worsening shortness of breath and on further wor k-up was 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 She was with normal kidney function prior to surgery and afte r her surgery she began to develop oliguria. Her procedure was done without any complications but after her surgery she did require pressor support for hypotension and she was intubated for respiratory acidosis and hypoxia a nd she was treated with vancomycin for infection treatment. When she was seen this morning she continued to have hypotension and her heart rate was paced by her permanent pacemaker and her urine outp ut was 20 to 30/h. Her family at bedside denied any history of kidney disease, kidney stone, chronic NSAID use or any urinary complaints. They also endorse that her b lood pressure and diabetes were mostly controlled. 12/29 Today she was eating in a chair and appeared com fortable. Objective Physical Exam Head/eyes: atraumatic, normocephalic ENT: moist mucous membranes, normal nose Neck: no JVD, no lymphadenopathy Cardiovascular: normal heart sounds, regular rat e and rhythm Respiratory: aerating well, clear to auscultatio n Abdomen: soft, no pulsatile mass Genitourinary: urinary catheter Extremities: no gangrene, no swelling Treatment Prophylaxis Treatment Prophylaxis Drain(s)/tube(s): Drain(s)/tube(s): chest (x3) Diagnosis, Assessment Plan Free Text A P: This is a 76-year-old female known to have hyper tension, diabetes, atrial fibrillation, s/p permanent pacemaker and histor y of ablation presenting with shortness of breath and found to have multivesse l coronary artery disease therefore she had CABG on December 19 after which she has developed oliguria. Nephrology is following for: 1. Acute kidney injury: Most likely it i s prerenal (cardiorenal), she has been hypotensive postoperatively with require ment for pressor support and inotropic support. Plan is to increase inotropic support or pressor support to bring mean arterial pressure above 65 and give albumin with Lasix to see if it helps him diurese. If he does not respond to higher dose L asix with albumin then I will consider starting him on CRRT to prevent hyper v olemia. 2. Hypervolemia: Plan is to give Lasix a nd if he does not respond to start him on CRRT for extra fluid removal. 3. His electrolytes were all reviewed to be in normal range plan was to monitor and replace as needed. 4. He was receiving vancomycin so plan w as to monitor vancomycin trough levels to prevent ATN. 12/21 1. Acute kidney injury: Most likely it i s prerenal (cardiorenal), she has been hypotensive postoperatively with require ment for pressor support and inotropic support. She responded to Lasix after her blood pressure improved with higher dose vasopressin and she was given albumin. Plan was to continue twice a day Lasix and albumin for hypervolemia. 2. Hypervolemia: Plan is to give Lasix with albu min twice daily and increase dose if needed. 3. His electrolytes were all reviewed to be in normal range plan was to monitor and replace as needed. 4. He was receiving vancomycin so plan w as to monitor vancomycin trough levels to prevent ATN. 12/22 1. Acute kidney injury: Most likely it i s prerenal (cardiorenal), she has been hypotensive postoperatively with require ment for pressor support and inotropic support. She responded to Lasix after her blood pressure improved with higher dose vasopressin and she was given albumin. Plan was to continue Lasix and albumin for hypervolemia.Plan to increase dose t o reach goal of 1 L negative Q12H. 2. Hypervolemia: Plan is to give Lasix with albu min and increase dose if needed. 3. His electrolytes were all reviewed to be in normal range plan was to monitor and replace as needed. 4. He was receiving vancomycin so plan w as to monitor vancomycin trough levels to prevent ATN. 12/23 1. Acute kidney injury: Most likely it i s prerenal (cardiorenal), she has been hypotensive postoperatively with require ment for pressor support and inotropic support. She responded to Lasix after her blood pressure improved with higher dose vasopressin and she was given albumin. Plan was to continue Lasix and albumin for hypervolemia.Plan to increase dose t o reach goal of 1 L negative Q12H. 2. Hypervolemia: Plan is to give Lasix with albu min and increase dose if needed. 3. Her electrolytes were all reviewed to be in n ormal range plan was to monitor and replace as needed. 4. She was receiving vancomy sanjana so plan was to monitor vancomycin trough levels to prevent ATN. 5/ Metabolic alkalosis secondary to diur etics : Plan to give acetazoleamide if worsening. 12/24 1. Acute kidney injury: Resolved, she is respond ing to lasix. 2. Hypervolemia: Plan to continue lasix as rhys ated. 3. Her electrolytes were all reviewed to be in n ormal range plan was to monitor and replace as needed. 4. She was receiving vancomy sanjana so plan was to monitor vancomycin trough levels to prevent ATN. 5/ Metabolic alkalosis secondary to diur etics : Plan to give acetazoleamide if worsening. 12/25 1. Acute kidney injury: Resolved, she is respond ing to lasix. 2. Hypervolemia: Plan to continue lasix as rhys ated.Today it was held for metabolic alkalosis. 3. Her electrolytes were all reviewed to be in n ormal range plan was to monitor and replace as needed. 4. She was receiving vancomy sanjana so plan was to monitor vancomycin trough levels to prevent ATN. 5/ Metabolic alkalosis secondary to diur etics : Plan to give acetazoleamide if worsening. 12/26 1. Acute kidney injury: Resolved, she is respond ing to lasix. 2. Hypervolemia: Plan to continue lasix as tolerated.Today she was on low dose drip. 3. Her electrolytes were all reviewed to be in n ormal range plan was to monitor and replace as needed. 4. She was receiving vancomy sanjana so plan was to monitor vancomycin trough levels to prevent ATN. 5/ Metabolic alkalosis secondary to diur etics : Plan to give acetazoleamide if worsening. 12/27 1. Acute kidney injury: Resolved, she is respond ing to lasix. 2. Hypervolemia: Plan to continue lasix as tolerated.Today she was on low dose twice daily lasix. 3. Hypokalemia/hypomagnesemia:secondary to diure tics, plan was to monitor and replace as needed. 4. She was receiving vancomy sanjana so plan was to monitor vancomycin trough levels to prevent ATN. 5/ Metabolic alkalosis secon lilli to diuretics : Plan to give acetazoleamide and monitor closely. 12/28 1. Acute kidney injury: Resolved, she is respond ing to lasix. 2. Hypervolemia: Plan to continue lasix as tolerated.Today she was on low dose twice daily lasix. 3. Hypokalemia/hypomagnesemia:secondary to diure tics, plan was to monitor and replace as needed. 4. She was receiving vancom ycin so plan was to monitor vancomycin trough levels to prevent ATN. 5/ Metabolic alkalosis secon lilli to diuretics : Plan to give acetazoleamide and monitor closely. 12/28 1. Acute kidney injury: Resolved, she is respond ing to lasix. 2. Hypervolemia: Plan to continue lasix as tolerated.Today she was on low dose twice daily lasix. 3. Hypokalemia/hypomagnesemia:secondary to diure tics, plan was to monitor and replace as needed. 4. She was receiving vancomy sajnana so plan was to monitor vancomycin trough levels to prevent ATN. 5/ Metabolic alkalosis secon lilli to diuretics : Plan to give acetazoleamide and monitor closely. 12/29 1. Acute kidney injury: Resolved, she is respon ding to lasix. 2. Hypervolemia: Plan to continue lasix as tolerated.Today she was on low dose twice daily lasix. 3. Hypokalemia/hypomagnesemia:secondary to diure tics, plan was to monitor and replace as needed. 4. She was receiving vancomy sanjana so plan was to monitor vancomycin trough levels to prevent ATN. 5/ Metabolic alkalosis secon lilli to diuretics : Plan to give acetazoleamide and monitor closely. Consultants: cardiology, cardiovascular surgery Electronically Signed by Suki Fuchs MD on at 2326 RPT #:[id number] END OF REPORT 2021-12-30 12:15:00-00:00 [facility] Hospitalist Progress Note REPORT#:[id number] REPORT STATUS: Signed DATE:12/30/21 TIME: 1215 PATIENT: SAÚL GILES UNIT #: [id number] ROOM[address] : [address] AGE: 76 SEX: F ATTEND: Leah More MD ADM AUTHOR: Meryl Rosa MD * ALL edits or amendments must be made on the [employer]/computer document * Subjective Chief complaint: she sit on the chair . less edema acute respiratory failure --post CABG HPI: 76 years old female with PMH of macular degeneration, obesity, obstructive sleep apnea (CPAP at home), former smoker, hypertensio n, hyperlipidemia, diabetes, Crohn's disease, chronic atr ial fibrillation status post 3 ablations in the past (on Xarelto), pacemaker plac ement is admitted to the hospital post cardiac cath . she need CABG . she had sob for years . sob go t worse . she was admitted to the hospital in [place] . she had cath 3 we eks ago . she was reffered to here for stents placement . she had cath yesterd ay . it show multiple vessels CAD . she is recommend CABG . she still feel sob . no cp no nausea no vomiting no fever no abdominal pain no dizziness . Review of Systems Constitutional: Reports: fatigue, generalized weakness. Denies: fever, lethargy. Respiratory: Reports: SOB. Denies: wheezing. Cardiovascular: Reports: DOUGLASS (dyspnea on exertion), edema. Denie s: chest pain, orthopnea. GI: Denies: abdominal pain, nausea, vomiting. Neuro: Denies: dizziness. Objective General VS/I O: Vital Signs: Date Time Temp Pulse Resp B/P B/P Pulse O2 O2 F low FiO2 Mean Ox Delivery Rate 12/30 914 35.9 73 22 127/44 70 82 12/30 899 35.9 72 26 133/43 70 12/31 0730 35.8 73 31 121/45 69 79 12/31 0715 35.8 76 28 140/49 79 97 12/31 0700 35.8 72 21 136/47 75 94 12/30 0648 98 High flow 5 nasal cannula 12/30 0645 35.8 75 22 135/47 76 98 12/30 0730 High flow 5 nasal cannula 12/30 0630 35.8 69 19 108/47 69 96 12/30 0615 35.9 75 18 100/51 72 97 10/18 0700 35.9 75 19 145/61 86 100 10/18 0636 36.0 71 12 124/40 64 100 10/18 0630 36.0 69 12 112/37 58 100 10/18 0615 36.0 106 22 144/49 78 100 10/18 0609 137/65 87 10/18 0609 36.0 72 20 144/48 77 100 10/18 0605 85/54 65 10/18 0605 73 29 143/47 76 97 10/18 0600 74 28 137/135 136 10/18 0545 36.0 76 31 141/52 83 94 10/18 0530 36.0 73 19 128/46 74 89 10/18 0515 36.1 72 21 132/46 75 90 10/18 0501 143/63 91 10/18 0501 36.1 71 22 133/49 78 90 10/18 0500 36.1 71 22 129/49 77 90 10/18 0445 36.2 72 24 135/50 78 90 10/18 0430 36.3 72 29 86/58 72 95 10/18 0415 36.3 69 23 108/45 65 100 10/18 0400 115/57 82 10/18 0400 36.3 71 22 107/47 67 100 10/18 0345 36.3 71 25 100/43 61 100 10/18 0330 36.3 72 26 116/51 75 100 10/18 0320 70 100 40 10/18 0315 36.3 69 22 92/40 57 100 10/18 0300 119/84 98 10/18 0300 36.3 73 29 128/55 82 93 10/18 0255 36.3 70 28 120/51 76 99 10/18 0245 36.4 72 29 123/53 78 99 10/18 0230 36.4 71 29 116/50 74 99 10/18 0215 36.4 71 33 126/53 78 100 10/18 0200 117/57 82 10/18 0200 36.4 75 28 108/52 75 100 10/18 0145 36.4 72 22 114/51 75 100 10/18 0130 36.4 76 24 124/56 81 100 10/18 0115 36.5 69 21 123/53 78 100 10/18 0100 123/58 84 10/18 0100 36.5 70 27 114/49 72 100 10/18 0045 36.5 73 23 101/46 65 100 12/30 0030 36.5 72 21 99/46 65 100 12/30 0015 36.5 73 29 121/56 80 98 / 0003 131/58 84 12/30 0003 36.5 72 22 89/53 70 100 12/30 0000 98/65 76 12/30 0000 36.5 76 23 142/56 87 100 12/29 2347 76 100 40 / 2345 36.5 75 24 141/53 84 100 12/29 2330 36.6 75 33 138/51 80 88 / 2315 36.5 69 26 128/47 73 100 / 2300 100/49 70 12/29 2300 36.5 70 26 103/39 58 100 12/29 2245 36.5 69 22 118/47 69 100 12/29 2230 99/49 71 12/29 2230 36.4 69 26 104/38 56 100 12/29 2229 100/50 72 12/29 2229 36.4 69 23 106/38 57 100 12/29 2228 107/53 76 12/29 2228 36.4 69 25 109/39 59 100 / 2227 113/52 76 / 2227 36.4 69 24 112/40 61 100 / 2226 114/56 80 12/29 2226 36.4 69 23 114/42 63 100 12/29 2215 36.4 72 25 108/36 56 100 12/29 2200 36.3 72 27 127/43 67 100 12/29 2145 36.3 71 19 115/39 59 100 12/29 2135 71 100 40 12/29 2130 36.2 71 19 129/41 66 100 12/29 2114 36.2 71 25 133/42 69 94 12/29 2100 36.2 70 22 140/46 74 100 12/29 2044 36.2 72 26 150/49 79 100 12/29 2029 36.3 69 35 147/46 76 97 12/29 2029 98 High flow 10 nasal cannula 12/29 2014 36.3 72 36 144/47 76 96 12/30 1999 36.9 12/30 1999 Nasal 10 cannula 12/30 1999 36.3 72 18 146/47 76 100 12/29 1944 36.3 73 28 151/48 80 97 12/29 1929 36.3 70 32 153/54 85 93 12/29 1914 36.3 71 37 149/49 80 97 12/29 1899 36.3 72 30 158/52 83 100 12/29 1636 75 100 40 12/29 1231 77 98 40 12/29 1227 71 98 40 24 hour I O ending at 0700: 12/30 0700 12/29 1900 Intake Total 480 Output Total 1005 1275 Balance -525 -1275 Intake, Oral 480 Output, Urine 1005 1275 Patient 122.9 kg Weight Weight Standing scale Measurement Method PATIENT WEIGHT: Weight (lb): 270 Weight (oz): 15.17 Weight (kg): 122.900 Medications: Active Meds + DC'd Last 24 Hrs Insulin Glargine (Lantus/Semglee) 25 UNIT DAILY SUBQ (DC) Insulin Glargine (Lantus/Semglee) 30 UNIT DAILY SUBQ Potassium Chloride (POTASSIUM CHLORIDE 20MEQ TAB .ER) 40 MEQ ONCE ONE PO (DC) Insulin Glargine (Lantus/Semglee) 20 UNIT BEDTIM E SUBQ Insulin Human Lispro (HUMALOG) 0 AC HS SUBQ Dextrose/Water (DEXTROSE 10% IN WATER) 125 ML DIR PRN IV (CKD) Dextrose/Water (DEXTROSE 10% IN WATER) 250 ML DIR PRN IV (CKD) Glucagon (GLUCAGON) 1 MG ASDIR PRN IM Amiodarone HCl (CORDARONE) 200 MG BID PO Furosemide (LASIX 40 mg/4 mL INJECTION) 40 MG BI D 9A 5P IV Acetazolamide (DIAMOX) 500 MG Q12HR IV Sterile Water (WATER FOR INJECTION) 5 ML ASDIR P RN IV Sterile Water (WATER FOR INJECTION) 5 ML ASDIR P RN IV Sodium Chloride (SODIUM CHLORIDE) 4 ML RTBID NEB Melatonin (Melatonin) 3 MG BEDTIME PO Sodium Chloride (SODIUM CHLORIDE) 10 ML BID IV Sodium Chloride (SODIUM CHLORIDE) 10 ML ASDIR NE N IV Pantoprazole (PROTONIX) 40 MG DAILY PO Dexmedetomidine/Sodium Chloride (PRECEDEX 1000MC G/NS 250ML) 250 ML ASDIR IV Bisacodyl (DULCOLAX) 10 MG DAILY PRN PRN RECTAL Lactulose (LACTULOSE) 20 GM DAILY PRN PRN PO Magnesium Hydroxide (MILK OF MAGNESIA) 30 ML PETER LY PRN PRN PO Aspirin (ASPIRIN) 81 MG DAILY PO Clopidogrel Bisulfate (Plavix) 75 MG DAILY PO Cyanocobalamin (Vitamin B-12 500 mcg tab) 500 MC G DAILY PO Ferrous Sulfate (FERROUS SULFATE) 325 MG DAILY P O Metolazone (metOLazone) 5 MG DAILY PO Polyethylene Glycol (MIRALAX) 17 GM DAILY PO Atorvastatin Calcium (LIPITOR) 40 MG 2100 PO Docusate Sodium (DOCUSATE SODIUM) 100 MG BID PO Metoprolol Tartrate (LOPRESSOR) 12.5 MG Q12HR PO Senna (SENOKOT) 17.6 MG BEDTIME PO Acetaminophen (TYLENOL) 650 MG Q4H PRN PRN PO Insulin Human Regular (HumuLIN R) 100 UNIT ASDIR IV (CKD) Sodium Chloride (SODIUM CHLORIDE 0.9%) 99 ML Acetylcysteine (MUCOMYST FOR RT) 200 MG RTQ6H NE B Albuterol/Ipratropium (DUONEB) 3 ML RTQ6H NEB Bisacodyl (DULCOLAX) 10 MG ONCE PRN RECTAL Dopamine HCl/Dextrose (DOPamine 400MG/D5W 250ML) 250 ML ASDIR IV Milrinone Lactate/Dextrose (MILRINONE 20MG/D5W 1 00ML) 100 ML ASDIR IV ( CKD) Vasopressin (VASOSTRICT 20 Unit/NS 100ML) 100 ML ASDIR IV (CKD) Acetaminophen (TYLENOL) 650 MG Q4H PRN PRN RECTA L Calcium Chloride (CALCIUM CHLORIDE) 1 GM ASDIR P RN IV Dextrose/Water (DEXTROSE 10% IN WATER) 125 ML DIR PRN IV (CKD) Dextrose/Water (DEXTROSE 10% IN WATER) 250 ML DIR PRN IV (CKD) Glucagon (GLUCAGON) 1 MG ASDIR PRN IM Magnesium Sulfate (MAGNESIUM SULFATE 4GM/SWFI 10 0ML) 100 ML ASDIR PRN IV Magnesium Sulfate (MAGNESIUM SULFATE 2GM/SWFI 50 ML) 50 ML ASDIR PRN IV Magnesium Sulfate/Dextrose (MAGNESIUM SULFATE 1G M/D5W 100ML) 100 ML ASDIR PRN IV Nitroglycerin/Dextrose (NITROGLYCERIN 50,000MCG/ D5W 250ML) 250 ML ASDIR IV Norepinephrine Bitartrate (NOREPINEPHRINE 8 MG/N S 250 ML) 250 ML TITRATE IV Potassium Chloride (KCL 20MEQ/SWFI 100ML) 100 ML ASDIR PRN IV Sodium Bicarbonate (SODIUM BICARBONATE) 50 MEQ ASDIR PRN IV Ondansetron HCl (ZOFRAN) 4 MG Q6H PRN PRN IV Physical Exam General appearance: alert, awake, oriented Head/Eyes: atraumatic, normal conjunctiva/sclera , normal eyelids/periorb., normocephalic Neck: full range of motion, non-tender, no JVD Cardiovascular: normal heart sounds, regular rat e rhythm Respiratory: decreased breath sounds, clear to a uscultation Abdomen: non-tender, normal bowel sounds, soft, no distention Extremities: edema, moves all, no calf tendernes s 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, 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 Skin: dry, intact Results Findings/Data: Laboratory Tests 12/30 12/30 0843 0449 Blood Gas Puncture Site L Radial Art Line O2 Saturation (90 - 100 %) 87.8 L 89.8 L ABG pH (7.35 - 7.45) 7.373 7.355 ABG pCO2 (35.0 - 45 mmHg) 60.9 *H 68.7 *H ABG pO2 (80 - 100.0 mmHg) 57.7 L 61.3 L ABG PO2/FiO2 Ratio (mm/Hg) 153.25 ABG HCO3 (22.0 - 26.0 MMOL/L) 35.5 *H 38.7 *H ABG Total CO2 37.3 40.8 ABG Base Excess (-4.0 - 4.0 MMOL/L) 10.2 H 12.9 H ABG Hematocrit (33.0 - 45.0 %) 24 L 22 L ABG Hemoglobin (11.0 - 15.0 G/DL) 8.3 L 7.6 L Martin Test N/A Sodium (134 - 147 MEQ/L) 145 142 Potassium (3.4 - 5.0 MEQ/L) 3.1 L 3.1 L Chloride (100 - 108 MEQ/L) 100 94 L Ionized Calcium (1.12 - 1.32 MMOL/L) 1.31 1.34 H Lactic Acid (0.9 - 1.7 mmol/l) 0.7 L 0.5 L Temperature (F) 98.6 97.2 O2 Delivery Device HFNC BiPAP Vent Rate (/MIN) 20 FiO2 (%) 40 PEEP (cmH2O) 8 Laboratory Tests 12/3017 1159 0843 0449 444 2011 Chemistry Sodium (134 - 147 mEq/L) 143 Potassium (3.4 - 5.0 mEq/L) 3.3 L Chloride (100 - 108 mEq/L) 98 L Carbon Dioxide (21 - 33 mEq/l) 38 H Anion Gap (0 - 20) 10 BUN (7 - 18 mg/dL) 35 H Creatinine (0.6 - 1.3 mg/dL) 1.0 POC Creatinine (0.6 - 1.0 mg/dL) 1.0 1.3 H Glomerular Filtr Rate (70 - 80) 53.6 L Glucose (70 - 110 mg/dL) 110 POC Glucose (70 - 110 MG/DL) 146 H 185 H POC Glucose (mg/dL) (70 - 110 MG/DL) 103 112 H Calcium (8.0 - 10.5 mg/dL) 9.9 Magnesium (1.80 - 2.40 mg/dL) 2.23 12/29 12/29 1742 1216 Chemistry POC Glucose (70 - 110 MG/DL) 197 H 236 H Laboratory Tests 12/305 Hematology WBC (4.5 - 11.0 x10 3/uL) 8.8 RBC (3.54 - 5.02 x10 6/uL) 1.86 L Hgb (11.0 - 15.0 g/dL) 7.4 L Hct (33.0 - 45.0 %) 21.6 L MCV (81.0 - 99.0 fL) 116.1 H MCH (27.0 - 33.0 pg) 39.8 H MCHC (33.0 - 37.0 g/dL) 34.3 RDW (11.5 - 14.5 %) 19.2 H Plt Count (150 - 400 x10 3/uL) 204 MPV (7.0 - 9.0 fL) 10.8 H Neut % (Auto) (56.0 - 77.0 %) 82.8 H Lymph % (Auto) (14.0 - 32.0 %) 4.9 L Barron % (Auto) (4.8 - 9.0 %) 8.6 Eos % (Auto) (0.3 - 3.7 %) 1.8 Baso % (Auto) (0.0 - 2.0 %) 0.2 Neut # (Auto) (2.0 - 7.6 x10 3/uL) 7.24 Lymph # (Auto) (1.0 - 3.8 x10 3/uL) 0.43 L Barron # (Auto) (0.1 - 0.8 x10 3/uL) 0.75 Eos # (Auto) (0.0 - 0.2 x10 3/uL) 0.16 Baso # (Auto) (0.0 - 0.2 x10 3/uL) 0.02 Abs Immat Gran (auto) (0.00 - 0.03 x10 3/uL) 0 .15 H Add Manual Diff NO Immature Gran % (0.0 - 2.0 %) 1.7 Nucleated RBC % (0 - 0 %) 0.5 H Nucleated RBCs # (Man) (0.0 - 0.1 x10 3/uL) 0.0 4 Radiology data: Recent Impressions: RADIOLOGY - XR CHEST 1 V 12/31 611 Report Impression - Status: SIGNED Entered: 12/30/2021 07 IMPRESSION: 1. Bilateral pulmonary opacities with multifocal airspace disease. Progression of disease in the right upper lobe. Edema and pneumonia in the differential. 2. Stable pleural effusions with bibasilar atele ctasis and or airspace disease. Impression By: Catherine Carlisle M.D. Treatment Prophylaxis Treatment Prophylaxis Drain(s)/tube(s): Drain(s)/tube(s): chest (x3) Diagnosis, Assessment Plan Consultants: cardiology, cardiovascular surgery Free Text DxA P Notes Free text DxA P notes: 76 years old female with PMH of macular degeneration, obesity, obstructive sleep apnea (CPAP at home), former smoker, hypertensio n, hyperlipidemia, diabetes, Crohn's disease, chronic atr ial fibrillation status post 3 ablations in the past (on Xarelto), pacemaker placement CAD -- multiple vesssels HTN DM HLD Crohn's disease chronic atrial fibrillation status post 3 ablati ons macular degeneration obesity obstructive sleep apnea acute respiratory failure --post surgery severe mitral valve regurgitation constrictive pericarditis CAD -- cardiology consult CV surgeon consult CABG -- AM ASA/lipitor afib -- rate control -- hold xarelto for surgery HTN-- continue home med DM-- on lantus -- sliding scale HLD-- on lipitor RONA--cpap as need DVTP -- heparin 12/18- feel sob -- CABG -- afternoon 12/19--post MVR (31 Magna valve), CABG x 1 (ROBERTS- LAD), ILAA and pericardectomy -- she remain intubated on the vent -- chest tube are in place -on levophed and epinephrine drip -- monitor in CCU 12/20- she was extubated --on bipap now -- NPO --off Levophed/epinephrine, continue vasopressi n, inotropes with milrinone, -- chest tube remain in place -- she is stable post surgery 12/21-- she is on high flow O2 -- edema --lasix --chest tube in place --- she is hemodynamic stable -- continue monitor in CCU 12/22- she remain on high O2 CXR show worsening pulmonary venous vascular co ngestion. --lasix iv tid -- chest tube are out -- off drips -- NPO -- start TPN -- continue monitor in CCU 12/23- she remain on high flow O2 --less edema -- on TPN -- she is hemodynamic stable -- continue monitor in CVICU 12/24- she get better -- she is out bed and sit on the chair -- start ambulate with PT -- continue current management 12/25- she is doing well with PT remain on o2 continue iv lasix / add diamox continue supportive care continue monitor in CVICU 12/26- she is on bipap -- she remain sob and edema -- may start lasix drip as nurse -- continue supportive care 12/27 On lasix and insulin drips. Back on lantus dose BID, trend glucose. Continue PT/OT. 12/28 Increase lantus BID. 12/29-- she remain on bipap -- sob and edema --lasiv and diamox iv bid -- FS -- better control -- continue monitor in CVICU 12/30- she improve --less sob and edema -- she tolerance diet -- continue lasix -- continue PT/OT Electronically Signed by Meryl Rosa MD on 2 at 1724 RPT #:[id number] END OF REPORT 2021-12-30 08:20:00-00:00 [facility] Cardiology Progress Note REPORT#:[id number] REPORT STATUS: Signed DATE:12/30/21 TIME: 819 PATIENT: SAÚL GILES UNIT #: [id number] ROOM/BED: [place] [id number] : 43 AGE: 76 SEX: F ATTEND: Leah More MD ADM AUTHOR: Jillian Lane NP * ALL edits or amendments must be made on the [employer] document * Subjective Chief complaint: sitting in chair eating breakfast Objective General VS/I O: Laboratory Tests 12/30/21 0445: [Embedded Image Not Available] 12/29/21 1200: [Embedded Image Not Available] 12/29/21 0355: [Embedded Image Not Available] 12/28/21 2100: [Embedded Image Not Available] 12/28/21 1134: [Embedded Image Not Available] Current Medications Sig/Fabby Start time Last Medication Dose Route Stop Time Status Admin Insulin Glargine 25 UNIT DAILY 12/30 09 DC SUBQ 01/29 0859 Insulin Glargine 30 UNIT DAILY 12/30 0900 AC SUBQ 01/29 0859 0824 Potassium Chloride 40 MEQ ONCE ONE 12/30 0630 DC 12/30 PO 12/30 0631 0641 Insulin Glargine 20 UNIT BEDTIME 12/29 2099 AC 12/29 SUBQ 01/28 2059 2018 Insulin Human Lispro 0 AC HS 12/29 1630 AC 12/13 8 SUBQ 01/28 1629 0824 Dextrose/Water 125 ML ASDIR PRN 12/29 1245 CKD IV 01/28 1244 Dextrose/Water 250 ML ASDIR PRN 12/29 1245 CKD IV 01/28 1244 Glucagon 1 MG ASDIR PRN 12/29 1245 AC IM 01/28 1244 Amiodarone HCl 200 MG BID 12/29 0900 AC 12/30 PO 01/28 0859 0825 Furosemide 40 MG BID 9A 5P 12/28 0730 AC 12/30 IV 01/27 0729 0824 Acetazolamide 500 MG Q12HR 12/27 2100 AC 12/30 IV 01/03 2059 0823 Sterile Water 5 ML ASDIR PRN 12/27 1130 AC IV 01/26 1129 Sterile Water 5 ML ASDIR PRN 12/27 0845 AC 12/13 7 IV 01/26 0844 2016 Sodium Chloride 4 ML RTBID 12/26 2200 AC 12/30 NEB 01/25 215 0751 Melatonin 3 MG BEDTIME 12/26 2099 AC 12/29 PO 01/25 Sodium Chloride 10 ML BID 12/26 2100 AC 12/30 IV 01/25 2059 0826 Sodium Chloride 10 ML ASDIR PRN 12/26 1200 AC IV 01/25 1159 Pantoprazole 40 MG DAILY 12/25 09 AC 12/30 PO 01/24 0859 0825 Dexmedetomidine/ 250 ML ASDIR 12/24 2330 AC Sodium Chloride IV 01/23 232 2343 Bisacodyl 10 MG DAILY PRN PRN 12/24 1545 AC RECTAL 01/23 1544 1645 Lactulose 20 GM DAILY PRN PRN 12/24 1330 AC PO 01/23 1329 1645 Magnesium Hydroxide 30 ML DAILY PRN PRN 12/24 1 330 AC 12/24 PO 01/23 1329 1646 Aspirin 81 MG DAILY 12/24 899 AC 12/30 PO 01/23 0859 0825 Clopidogrel Bisulfate 75 MG DAILY 12/24 899 AC 12/30 PO 01/23 0859 0825 Cyanocobalamin 500 MCG DAILY 12/24 899 AC 12/13 8 PO 01/23 0859 0825 Ferrous Sulfate 325 MG DAILY 12/24 899 AC 12/13 6 PO 01/23 0859 0840 Metolazone 5 MG DAILY 12/24 899 AC 12/29 PO 01/23 0859 1052 Polyethylene Glycol 17 GM DAILY 12/24 899 AC 1 PO 01/23 0859 0825 Atorvastatin Calcium 40 MG 2100 12/23 2099 AC 1 PO 01/22 Docusate Sodium 100 MG BID 12/23 2099 AC 12/30 PO 01/22 2059 0826 Metoprolol Tartrate 12.5 MG Q12HR 12/23 2099 A C 12/30 PO 01/22 2059 0825 Senna 17.6 MG BEDTIME 12/23 2099 AC 12/29 PO 01/22 Acetaminophen 650 MG Q4H PRN PRN 12/23 1200 AC 12/30 PO 01/22 1147 0158 Insulin Human Regular 100 UNIT ASDIR 12/23 1100 CKD 12/28 Sodium Chloride 99 ML IV 01/22 1059 1646 Acetylcysteine 200 MG RTQ6H 12/21 1530 AC 12/30 NEB 01/20 1529 0752 Albuterol/Ipratropium 3 ML RTQ6H 12/21 1530 AC 12/30 NEB 01/20 1529 0751 Bisacodyl 10 MG ONCE PRN 12/21 1200 AC 12/23 RECTAL 01/20 1159 1109 Dopamine HCl/Dextrose 250 ML ASDIR 12/21 799 A C 12/20 IV 01/19 0759 0829 Milrinone Lactate/ 100 ML ASDIR 12/19 2029 CKD 12/20 Dextrose IV 01/18 2029 0441 Vasopressin 100 ML ASDIR 12/19 2029 CKD 12/20 IV 01/18 2029 204 Acetaminophen 650 MG Q4H PRN PRN 12/19 1115 AC RECTAL 01/18 1114 Calcium Chloride 1 GM ASDIR PRN 12/19 1115 AC IV 01/18 1114 Dextrose/Water 125 ML ASDIR PRN 12/19 111 CKD IV 01/18 1114 Dextrose/Water 250 ML ASDIR PRN 12/19 111 CKD IV 01/18 1114 Glucagon 1 MG ASDIR PRN 12/19 1115 AC IM 01/18 1114 Magnesium Sulfate 100 ML ASDIR PRN 12/19 1115 A C IV 01/18 1114 Magnesium Sulfate 50 ML ASDIR PRN 12/19 1115 AC IV 01/18 1114 Magnesium Sulfate/ 100 ML ASDIR PRN 12/19 1115 AC 12/29 Dextrose IV 01/18 1114 0630 Nitroglycerin/ 250 ML ASDIR 12/19 1115 AC Dextrose IV 01/18 1114 Norepinephrine 250 ML TITRATE 12/19 1115 AC Bitartrate IV 01/18 1114 Potassium Chloride 100 ML ASDIR PRN 12/19 1115 AC 12/28 IV 01/18 1114 2216 Sodium Bicarbonate 50 MEQ ASDIR PRN 12/19 1115 AC IV 01/18 1114 Ondansetron HCl 4 MG Q6H PRN PRN 12/18 1145 AC 12/25 IV 01/17 1144 0326 24 hour I O ending at 0700: 12/30 0700 12/29 1900 Intake Total 480 Output Total 1005 1275 Balance -525 -1275 Intake, Oral 480 Output, Urine 1005 1275 Patient 122.9 kg Weight Weight Standing scale Measurement Method Vital Signs: Date Time Temp Pulse Resp B/P B/P Pulse O2 O2 F low FiO2 Mean Ox Delivery Rate 12/30 0915 35.9 73 22 127/44 70 82 12/30 0900 35.9 72 26 133/43 70 12/30 0830 35.8 73 31 121/45 69 79 12/30 0815 35.8 76 28 140/49 79 97 12/30 0800 35.8 72 21 136/47 75 94 12/30 0748 98 High flow 5 nasal cannula 12/30 0745 35.8 75 22 135/47 76 98 / 0730 High flow 5 nasal cannula 12/30 0730 35.8 69 19 108/47 69 96 12/30 0715 35.9 75 18 100/51 72 97 12/30 0700 35.9 75 19 145/61 86 100 12/30 0636 36.0 71 12 124/40 64 100 / 0630 36.0 69 12 112/37 58 100 12/30 0615 36.0 106 22 144/49 78 100 / 0609 137/65 87 / 0609 36.0 72 20 144/48 77 100 / 0605 85/54 65 / 0605 73 29 143/47 76 97 12/30 0600 74 28 137/135 136 12/30 0545 36.0 76 31 141/52 83 94 12/30 0530 36.0 73 19 128/46 74 89 10/ 0515 36.1 72 21 132/46 75 90 10/ 0501 143/63 91 10/ 0501 36.1 71 22 133/49 78 90 10/ 0500 36.1 71 22 129/49 77 90 10/ 0445 36.2 72 24 135/50 78 90 10/ 0430 36.3 72 29 86/58 72 95 / 0415 36.3 69 23 108/45 65 100 10/ 0400 115/57 82 10/ 0400 36.3 71 22 107/47 67 100 / 0345 36.3 71 25 100/43 61 100 10/18 0330 36.3 72 26 116/51 75 100 10/18 0320 70 100 40 10/18 0315 36.3 69 22 92/40 57 100 10/18 0300 119/84 98 10/18 0300 36.3 73 29 128/55 82 93 10/18 0255 36.3 70 28 120/51 76 99 10/18 0245 36.4 72 29 123/53 78 99 10/18 0230 36.4 71 29 116/50 74 99 10/18 0215 36.4 71 33 126/53 78 100 10/18 0200 117/57 82 10/18 0200 36.4 75 28 108/52 75 100 10/18 0145 36.4 72 22 114/51 75 100 10/18 0130 36.4 76 24 124/56 81 100 10/18 0115 36.5 69 21 123/53 78 100 10/18 0100 123/58 84 10/18 0100 36.5 70 27 114/49 72 100 10/18 0045 36.5 73 23 101/46 65 100 10/18 0030 36.5 72 21 99/46 65 100 10/18 0015 36.5 73 29 121/56 80 98 10/18 0003 131/58 84 10/18 0003 36.5 72 22 89/53 70 100 10/18 0000 98/65 76 10/18 0000 36.5 76 23 142/56 87 100 10/17 2347 76 100 40 10/17 2345 36.5 75 24 141/53 84 100 10/17 2330 36.6 75 33 138/51 80 88 10/17 2315 36.5 69 26 128/47 73 100 10/17 2300 100/49 70 10/17 2300 36.5 70 26 103/39 58 100 10/17 2245 36.5 69 22 118/47 69 100 10/17 2230 99/49 71 10/17 2230 36.4 69 26 104/38 56 100 10/17 2229 100/50 72 10/17 2229 36.4 69 23 106/38 57 100 10/17 2228 107/53 76 10/17 2228 36.4 69 25 109/39 59 100 10/17 2227 113/52 76 10/17 2227 36.4 69 24 112/40 61 100 10/17 2226 114/56 80 12/29 2225 36.4 69 23 114/42 63 100 12/29 2215 36.4 72 25 108/36 56 100 12/29 2200 36.3 72 27 127/43 67 100 12/29 2145 36.3 71 19 115/39 59 100 12/29 2135 71 100 40 12/29 2130 36.2 71 19 129/41 66 100 12/29 2114 36.2 71 25 133/42 69 94 12/29 2100 36.2 70 22 140/46 74 100 12/29 2044 36.2 72 26 150/49 79 100 12/29 2029 36.3 69 35 147/46 76 97 12/29 2029 98 High flow 10 nasal cannula 12/29 2014 36.3 72 36 144/47 76 96 12/30 1999 36.9 12/30 1999 Nasal 10 cannula 12/30 1999 36.3 72 18 146/47 76 100 12/29 1944 36.3 73 28 151/48 80 97 12/29 193 36.3 70 32 153/54 85 93 12/29 191 36.3 71 37 149/49 80 97 12/29 1900 36.3 72 30 158/52 83 100 12/29 1636 75 100 40 12/29 1231 77 98 40 12/29 1227 71 98 40 PATIENT WEIGHT: Weight (lb): 270 Weight (oz): 15.17 Weight (kg): 122.900 Status post: CABG, MVR, and ILAA Physical Exam General appearance: alert, awake, oriented, no a cute distress ENT: moist mucosal membranes Neck: no JVD Cardiovascular: CV assessment: regular rate and rhythm Respiratory: decreased breath sounds, on oxygen Abdomen: obese Genitourinary: no flank pain, no urinary cathete r Upper extremity: UE assessment: normal temperature, no edema Lower extremity: LE assessment: edema 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, 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 Skin: dry, intact Psychiatry: normal affect, normal mood Results Radiology data: Recent Impressions: RADIOLOGY - XR CHEST 1 V 12/30 0512 Report Impression - Status: SIGNED Entered: 12/30/2021 0706 IMPRESSION: 1. Bilateral pulmonary opacities with multifocal airspace disease. Progression of disease in the right upper lobe. Edema and pneumonia in the differential. 2. Stable pleural effusions with bibasilar atele ctasis and or airspace disease. Impression By: Catherine Carlisle M.D. Diagnosis, Assessment Plan Free Text DxA P Notes Free Text DxA P Notes: Ms Giles is a 76 y/o Femal w / PMHx: CAD, HLD, T2DM, RONA (CPAP at home), smoker, Crohn's disease, AF s/p ablation (on Xarelto), s /p PPM and lymphedema. Dr. Fortune is consulted for CAD s/p CABG, MVR. - CAD s/p CABG, MVR, and ILAA. post-op per CTS and critical care On Plavix, aspirin, beta-delma, statin volume management per Nephrology rotating bipap with high flow NC as tolerated- weaning as tolerated - Chr AF s/p PPM/ablation. Rate controlled, pace d rhythm. had ILAA during bypass - HTN. BP stable - HLD. On statins. - Crohn's disease. Per IM. -MARCELLO - resolving per Nephrology -Resp insufficiency on BIPAP/high flow NC as tolerated per critical care -Diastolic CHF/volume overload diuretic management per nephrology/CTS continue supportive care PT/OT as tolerated Electronically Signed by Jillian Lane NP on at 1059 Electronically Signed by Aruna Fortune MD on at 2330 RPT #:[id number] END OF REPORT 2021-12-29 21:00:00-00:00 [facility] Nephrology Progress Note REPORT#:[id number] REPORT STATUS: Signed DATE:12/29/21 TIME: 2099 PATIENT: SAÚL GILES UNIT #: [id number] ROOM/BED: [place] [address] : 43 AGE: 76 SEX: F ATTEND: Leah More MD ADM AUTHOR: Suki Fuchs MD * ALL edits or amendments must be made on the [employer]/computer document * Subjective Chief complaint: chest pain HPI: This is a 76-year-old female who has past medica l history of hypertension, diabetes, coronary artery disease, atrial fibril lation who presented with worsening shortness of breath and on further wor k-up was 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 She was with normal kidney function prior to surgery and afte r her surgery she began to develop oliguria. Her procedure was done without any complications but after her surgery she did require pressor support for hypotension and she was intubated for respiratory acidosis and hypoxia a nd she was treated with vancomycin for infection treatment. When she was seen this morning she continued to have hypotension and her heart rate was paced by her permanent pacemaker and her urine outp ut was 20 to 30/h. Her family at bedside denied any history of kidney disease, kidney stone, chronic NSAID use or any urinary complaints. They also endorse that her b lood pressure and diabetes were mostly controlled. 12/29 Today she was eating in a chair and appeared com fortable. Objective General VS/I O: Vital Signs: Date Time Temp Pulse Resp B/P B/P Pulse O2 O2 F low FiO2 Mean Ox Delivery Rate 12/29 1636 75 100 40 12/29 1231 77 98 40 12/29 1227 71 98 40 12/29 0945 36.1 75 23 135/38 63 100 / 0930 36.1 75 29 154/41 71 99 12/29 0915 36.1 76 36 151/41 69 95 / 0900 36.1 75 27 151/37 65 88 / 0845 36.1 72 26 149/40 70 94 / 0830 36.1 75 28 148/41 71 93 / 0815 36.1 72 24 151/42 72 97 / 0815 98 High flow 10 60 nasal cannula 12/29 0800 36.2 72 14 132/36 60 100 12/29 0745 36.2 71 16 142/39 65 100 / 0730 High flow 10 nasal cannula 12/29 0730 36.2 75 13 147/40 67 100 / 0715 36.2 72 28 159/44 75 99 / 0700 36.3 72 26 172/48 81 100 10/ 0645 36.3 72 25 176/48 83 99 10/ 0630 36.4 73 22 173/48 81 100 / 0615 36.4 69 24 184/53 88 100 10/ 0600 76 48 100 / 0545 36.3 70 26 100 10/17 0530 36.4 70 25 100 10/17 0515 36.4 69 24 156/58 91 99 10/17 0500 36.4 69 24 106/35 54 100 10/17 0445 36.4 69 21 117/38 59 100 10/17 0430 36.4 69 24 126/40 63 99 10/17 0430 89 100 40 10/17 0415 36.4 69 17 120/39 61 98 10/17 0400 36.4 69 23 138/45 72 100 10/17 0345 36.4 69 25 130/46 71 99 10/17 0330 36.4 69 24 137/132 134 100 10/17 0315 36.3 69 23 142/47 76 100 10/17 0300 36.4 69 23 160/57 90 99 10/17 0245 36.4 73 28 160/61 96 98 10/17 0230 36.3 71 26 156/52 85 96 10/17 0215 36.4 71 30 168/61 97 96 10/17 0213 71 100 40 10/17 0200 36.4 44 22 152/53 86 96 10/17 0145 36.4 73 26 125/46 70 98 10/17 0130 36.3 75 25 114/43 63 100 10/17 0115 36.3 75 26 111/43 63 98 10/17 0100 36.3 75 25 112/43 64 98 10/17 0045 36.3 73 16 114/43 64 98 10/17 0040 70 99 40 10/17 0030 36.3 72 16 121/45 67 97 10/17 0015 36.3 75 16 122/47 69 98 10/17 0000 36.3 76 18 118/46 67 98 10/16 2345 36.4 76 26 162/58 92 93 10/16 2330 36.5 71 24 143/51 79 95 10/16 2315 36.6 75 23 150/52 82 93 10/16 2300 36.6 73 35 158/51 86 85 10/16 2245 36.7 70 35 151/52 85 96 10/16 2230 36.8 75 34 143/53 84 95 10/16 2215 36.5 73 33 144/52 80 99 10/16 2200 36.7 69 23 133/43 67 100 10/16 2145 36.7 69 27 122/32 57 100 10/16 2130 36.6 69 21 148/38 66 97 12/28 2114 36.7 69 34 136/35 61 97 24 hour I O ending at 0700: 12/29 0700 12/28 1900 Intake Total 275.00 1437.90 Output Total 640 1135 Balance -365.00 302.90 Intake, IV 275.00 137.90 Intake, Oral 580 Intake, Oral 720 Supplement Output, Urine 640 1135 Patient 123.2 kg Weight Weight Standing scale Measurement Method PATIENT WEIGHT: Weight (lb): 271 Weight (oz): 9.75 Weight (kg): 123.200 Physical Exam General appearance: alert, awake, oriented Head/eyes: atraumatic, normocephalic ENT: moist mucous membranes, normal nose Neck: no JVD, no lymphadenopathy Cardiovascular: normal heart sounds, regular rat e and rhythm Respiratory: aerating well, clear to auscultatio n Abdomen: soft, no pulsatile mass Genitourinary: urinary catheter Extremities: no gangrene, no swelling Treatment Prophylaxis Treatment Prophylaxis Drain(s)/tube(s): Drain(s)/tube(s): chest (x3) Diagnosis, Assessment Plan Free Text A P: This is a 76-year-old female known to have hyper tension, diabetes, atrial fibrillation, s/p permanent pacemaker and histor y of ablation presenting with shortness of breath and found to have multivesse l coronary artery disease therefore she had CABG on December 19 after which she has developed oliguria. Nephrology is following for: 1. Acute kidney injury: Most likely it i s prerenal (cardiorenal), she has been hypotensive postoperatively with require ment for pressor support and inotropic support. Plan is to increase inotropic support or pressor support to bring mean arterial pressure above 65 and give albumin with Lasix to see if it helps him diurese. If he does not respond to higher dose L asix with albumin then I will consider starting him on CRRT to prevent hyper v olemia. 2. Hypervolemia: Plan is to give Lasix a nd if he does not respond to start him on CRRT for extra fluid removal. 3. His electrolytes were all reviewed to be in normal range plan was to monitor and replace as needed. 4. He was receiving vancomycin so plan w as to monitor vancomycin trough levels to prevent ATN. 12/21 1. Acute kidney injury: Most likely it i s prerenal (cardiorenal), she has been hypotensive postoperatively with require ment for pressor support and inotropic support. She responded to Lasix after her blood pressure improved with higher dose vasopressin and she was given albumin. Plan was to continue twice a day Lasix and albumin for hypervolemia. 2. Hypervolemia: Plan is to give Lasix with albu min twice daily and increase dose if needed. 3. His electrolytes were all reviewed to be in normal range plan was to monitor and replace as needed. 4. He was receiving vancomycin so plan w as to monitor vancomycin trough levels to prevent ATN. 12/22 1. Acute kidney injury: Most likely it i s prerenal (cardiorenal), she has been hypotensive postoperatively with require ment for pressor support and inotropic support. She responded to Lasix after her blood pressure improved with higher dose vasopressin and she was given albumin. Plan was to continue Lasix and albumin for hypervolemia.Plan to increase dose t o reach goal of 1 L negative Q12H. 2. Hypervolemia: Plan is to give Lasix with albu min and increase dose if needed. 3. His electrolytes were all reviewed to be in normal range plan was to monitor and replace as needed. 4. He was receiving vancomycin so plan w as to monitor vancomycin trough levels to prevent ATN. 12/23 1. Acute kidney injury: Most likely it i s prerenal (cardiorenal), she has been hypotensive postoperatively with require ment for pressor support and inotropic support. She responded to Lasix after her blood pressure improved with higher dose vasopressin and she was given albumin. Vicki n was to continue Lasix and albumin for hypervolemia.Plan to increase dose t o reach goal of 1 L negative Q12H. 2. Hypervolemia: Plan is to give Lasix with albu min and increase dose if needed. 3. Her electrolytes were all reviewed to be in n ormal range plan was to monitor and replace as needed. 4. She was receiving vancomy sanjana so plan was to monitor vancomycin trough levels to prevent ATN. 5/ Metabolic alkalosis secondary to diur etics : Plan to give acetazoleamide if worsening. 12/24 1. Acute kidney injury: Resolved, she is respond ing to lasix. 2. Hypervolemia: Plan to continue lasix as rhys ated. 3. Her electrolytes were all reviewed to be in n ormal range plan was to monitor and replace as needed. 4. She was receiving vancomy sanjana so plan was to monitor vancomycin trough levels to prevent ATN. 5/ Metabolic alkalosis secondary to diur etics : Plan to give acetazoleamide if worsening. 12/25 1. Acute kidney injury: Resolved, she is respond ing to lasix. 2. Hypervolemia: Plan to continue lasix as rhys ated.Today it was held for metabolic alkalosis. 3. Her electrolytes were all reviewed to be in n ormal range plan was to monitor and replace as needed. 4. She was receiving vancomy sanjana so plan was to monitor vancomycin trough levels to prevent ATN. 5/ Metabolic alkalosis secondary to diur etics : Plan to give acetazoleamide if worsening. 12/26 1. Acute kidney injury: Resolved, she is respond ing to lasix. 2. Hypervolemia: Plan to continue lasix as tolerated.Today she was on low dose drip. 3. Her electrolytes were all reviewed to be in n ormal range plan was to monitor and replace as needed. 4. She was receiving vancomy sanjana so plan was to monitor vancomycin trough levels to prevent ATN. 5/ Metabolic alkalosis secondary to diur etics : Plan to give acetazoleamide if worsening. 12/27 1. Acute kidney injury: Resolved, she is respond ing to lasix. 2. Hypervolemia: Plan to continue lasix as tolerated.Today she was on low dose twice daily lasix. 3. Hypokalemia/hypomagnesemia:secondary to diure tics, plan was to monitor and replace as needed. 4. She was receiving vancomy sanjana so plan was to monitor vancomycin trough levels to prevent ATN. 5/ Metabolic alkalosis secon lilli to diuretics : Plan to give acetazoleamide and monitor closely. 12/28 1. Acute kidney injury: Resolved, she is respond ing to lasix. 2. Hypervolemia: Plan to continue lasix as tolerated.Today she was on low dose twice daily lasix. 3. Hypokalemia/hypomagnesemia:secondary to diure tics, plan was to monitor and replace as needed. 4. She was receiving vancomy sanjana so plan was to monitor vancomycin trough levels to prevent ATN. 5/ Metabolic alkalosis secon lilli to diuretics : Plan to give acetazoleamide and monitor closely. 12/28 1. Acute kidney injury: Resolved, she is respond ing to lasix. 2. Hypervolemia: Plan to continue lasix as tolerated.Today she was on low dose twice daily lasix. 3. Hypokalemia/hypomagnesemia:secondary to diure tics, plan was to monitor and replace as needed. 4. She was receiving vancomy sanjana so plan was to monitor vancomycin trough levels to prevent ATN. 5/ Metabolic alkalosis secon lilli to diuretics : Plan to give acetazoleamide and monitor closely. 12/29 1. Acute kidney injury: Resolved, she is respond ing to lasix. 2. Hypervolemia: Plan to continue lasix as tolerated.Today she was on low dose twice daily lasix. 3. Hypokalemia/hypomagnesemia:secondary to diure tics, plan was to monitor and replace as needed. 4. She was receiving vancomy sanjana so plan was to monitor vancomycin trough levels to prevent ATN. 5/ Metabolic alkalosis secon lilli to diuretics : Plan to give acetazoleamide and monitor closely. Consultants: cardiology, cardiovascular surgery Electronically Signed by Suki Fuchs MD on at 2106 RPT #:[id number] END OF REPORT 2021-12-29 18:07:00-00:00 [facility] Cardiothoracic Surgery Prog REPORT#:[id number] REPORT STATUS: Signed DATE:12/29/21 TIME: 180 PATIENT: SAÚL GILES UNIT #: [id number] ROOM/BED: [place] [id number] : 43 AGE: 76 SEX: F ATTEND: Leah More MD ADM AUTHOR: Tj Bonner MD * ALL edits or amendments must be made on the [employer]/computer document * General Post-op: day 7 Status post: 1. Mitral valve replacement (31 Magna valve). 2. Coronary artery bypass graft surgery x1 (GOMES A to LAD). 3. Isolation of left atrial appendage. 4. Pericardiectomy. Subjective Chief complaint: Shortness of breath Review of Systems Constitutional: Denies: fever, malaise. Allergy/Immun: Denies: allergic reaction. ENT: Denies: sore throat. Respiratory: Denies: SOB. GI: Denies: abdominal pain. Heme: Denies: bleeding. Neuro: Denies: focal weakness, headache. All systems rev neg: except as marked Objective General VS/I O Last Documented: Result Date Time Pulse Ox 100 12/30 1635 FiO2 40 12/29 163 Pulse 75 12/29 1636 B/P 135/38 12/29 0845 B/P Mean 63 12/29 944 Temp 36.1 12/29 944 Resp 23 12/29 944 O2 Delivery High flow nasal cannula 12/29 814 O2 Flow Rate 10 12/29 814 24 hour I O ending at 0700: 12/29 0700 12/28 1900 Intake Total 275.00 1437.90 Output Total 640 1135 Balance -365.00 302.90 Intake, IV 275.00 137.90 Intake, Oral 580 Intake, Oral 720 Supplement Output, Urine 640 1135 Patient 123.2 kg Weight Weight Standing scale Measurement Method PATIENT WEIGHT: Weight (lb): 271 Weight (oz): 9.75 Weight (kg): 123.200 Dietitian Nutrition assessment The data set between the solid lines has been im ported from the dietitian's assessment. BMI Calculated: 46.6 Nutrition related diagnosis: Morbid obesity Nutrition diagnosis details: BMI 40 or more Nutrition problem: Increased nutrient needs Nutrition etiology: Chronic disease Nutrition signs and symptoms: S/P CABG Nutrition prescription: 1. C ONTINUE REGULAR DIET TO LIBERALIZE FOOD CHOICES AND HELP INCREASE PO INTAKE. 2. PROVIDE GLUCERNA 4 PER DAY. 3. MONITOR PO, WT, LABS, BM. Dietitian name: Serenity Garner, DIET Assessment completed: 12/25/21 Physical Exam General appearance: frail Wound/incision: Location: sternal Site condition: dressing clean dry, dressing in tact HEENT: anicteric Neck: supple/no meningismus Cardiovascular: normal heart sounds, regular rat e rhythm Respiratory: aerating well, symmetric expansion, no distress Abdomen: soft, non-tender Extremities: moves all 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, 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, normal speech Skin: dry, intact, normal temperature Psychiatry: normal affect, normal mood Current Medications Medications: Active Meds + DC'd Last 24 Hrs Insulin Glargine (Lantus/Semglee) 25 UNIT DAILY SUBQ (DC) Insulin Glargine (Lantus/Semglee) 30 UNIT DAILY SUBQ Insulin Glargine (Lantus/Semglee) 20 UNIT BEDTIM E SUBQ Insulin Human Lispro (HUMALOG) 0 AC HS SUBQ Dextrose/Water (DEXTROSE 10% IN WATER) 125 ML DIR PRN IV (CKD) Dextrose/Water (DEXTROSE 10% IN WATER) 250 ML DIR PRN IV (CKD) Glucagon (GLUCAGON) 1 MG ASDIR PRN IM Amiodarone HCl (CORDARONE) 200 MG BID PO Furosemide (LASIX 40 mg/4 mL INJECTION) 40 MG ON CE ONE IV (DC) Dextrose/Water (DEXTROSE 50% W SYRINGE) 0 .STK-M ED ONE IV (DC) Lorazepam (ATIVAN) 0.25 MG ONCE ONE PO (DC) Albumin Human (ALBUMINAR-25%) 50 ML ONCE ONE IV (DC) Potassium Chloride (POTASSIUM CHLORIDE 20MEQ TAB .ER) 40 MEQ ONCE ONE PO (DC) Insulin Glargine (Lantus/Semglee) 30 UNIT BID QUINTANA BQ (DC) Furosemide (LASIX 40 mg/4 mL INJECTION) 40 MG BI D 9A 5P IV Acetazolamide (DIAMOX) 500 MG Q12HR IV Sterile Water (WATER FOR INJECTION) 5 ML ASDIR P RN IV Sterile Water (WATER FOR INJECTION) 5 ML ASDIR P RN IV Sodium Chloride (SODIUM CHLORIDE) 4 ML RTBID NEB Melatonin (Melatonin) 3 MG BEDTIME PO Sodium Chloride (SODIUM CHLORIDE) 10 ML BID IV Sodium Chloride (SODIUM CHLORIDE) 10 ML ASDIR NE N IV Pantoprazole (PROTONIX) 40 MG DAILY PO Dexmedetomidine/Sodium Chloride (PRECEDEX 1000MC G/NS 250ML) 250 ML ASDIR IV Bisacodyl (DULCOLAX) 10 MG DAILY PRN PRN RECTAL Lactulose (LACTULOSE) 20 GM DAILY PRN PRN PO Magnesium Hydroxide (MILK OF MAGNESIA) 30 ML PETER LY PRN PRN PO Aspirin (ASPIRIN) 81 MG DAILY PO Clopidogrel Bisulfate (Plavix) 75 MG DAILY PO Cyanocobalamin (Vitamin B-12 500 mcg tab) 500 MC G DAILY PO Ferrous Sulfate (FERROUS SULFATE) 325 MG DAILY P O Metolazone (metOLazone) 5 MG DAILY PO Polyethylene Glycol (MIRALAX) 17 GM DAILY PO Atorvastatin Calcium (LIPITOR) 40 MG 2100 PO Docusate Sodium (DOCUSATE SODIUM) 100 MG BID PO Metoprolol Tartrate (LOPRESSOR) 12.5 MG Q12HR PO Senna (SENOKOT) 17.6 MG BEDTIME PO Amiodarone HCl (CORDARONE) 200 MG TID PO (DC) Acetaminophen (TYLENOL) 650 MG Q4H PRN PRN PO Insulin Human Regular (HumuLIN R) 100 UNIT ASDIR IV (CKD) Sodium Chloride (SODIUM CHLORIDE 0.9%) 99 ML Acetylcysteine (MUCOMYST FOR RT) 200 MG RTQ6H NE B Albuterol/Ipratropium (DUONEB) 3 ML RTQ6H NEB Bisacodyl (DULCOLAX) 10 MG ONCE PRN RECTAL Dopamine HCl/Dextrose (DOPamine 400MG/D5W 250ML) 250 ML ASDIR IV Milrinone Lactate/Dextrose (MILRINONE 20MG/D5W 1 00ML) 100 ML ASDIR IV ( CKD) Vasopressin (VASOSTRICT 20 Unit/NS 100ML) 100 ML ASDIR IV (CKD) Acetaminophen (TYLENOL) 650 MG Q4H PRN PRN RECTA L Calcium Chloride (CALCIUM CHLORIDE) 1 GM ASDIR P RN IV Dextrose/Water (DEXTROSE 10% IN WATER) 125 ML DIR PRN IV (CKD) Dextrose/Water (DEXTROSE 10% IN WATER) 250 ML DIR PRN IV (CKD) Glucagon (GLUCAGON) 1 MG ASDIR PRN IM Magnesium Sulfate (MAGNESIUM SULFATE 4GM/SWFI 10 0ML) 100 ML ASDIR PRN IV Magnesium Sulfate (MAGNESIUM SULFATE 2GM/SWFI 50 ML) 50 ML ASDIR PRN IV Magnesium Sulfate/Dextrose (MAGNESIUM SULFATE 1G M/D5W 100ML) 100 ML ASDIR PRN IV Nitroglycerin/Dextrose (NITROGLYCERIN 50,000MCG/ D5W 250ML) 250 ML ASDIR IV Norepinephrine Bitartrate (NOREPINEPHRINE 8 MG/N S 250 ML) 250 ML TITRATE IV Potassium Chloride (KCL 20MEQ/SWFI 100ML) 100 ML ASDIR PRN IV Sodium Bicarbonate (SODIUM BICARBONATE) 50 MEQ A SDIR PRN IV Ondansetron HCl (ZOFRAN) 4 MG Q6H PRN PRN IV Results Findings/Data: Laboratory Tests 12/29 12/29 12/29 12/29 0536 0300 0200 0054 Blood Gas Puncture Site Art Line Art Line Art Line Art L ine O2 Saturation (90 - 100 %) 95.5 95.7 92.8 94.0 ABG pH (7.35 - 7.45) 7.357 7.367 7.327 L 7.326 L ABG pCO2 (35.0 - 45 mmHg) 71.1 *H 73.2 *H 80.5 *H 81.2 *H ABG pO2 (80 - 100.0 mmHg) 83.8 84.4 73.3 L 78.4 L ABG PO2/FiO2 Ratio (mm/Hg) 209.50 211.00 183.2 5 196.00 ABG HCO3 (22.0 - 26.0 MMOL/L) 40.1 *H 42.4 *H 4 2.4 *H 42.8 *H ABG Total CO2 42.4 44.7 45.0 45.3 ABG Base Excess (-4.0 - 4.0 MMOL/L) 14.5 H 16.9 H 16.3 H 16.6 H ABG Hematocrit (33.0 - 45.0 %) 23 L 24 L 23 L 2 2 L ABG Hemoglobin (11.0 - 15.0 G/DL) 7.8 L 8.2 L 7 .9 L 7.5 L Martin Test N/A Sodium (134 - 147 MEQ/L) 144 143 144 143 Potassium (3.4 - 5.0 MEQ/L) 3.9 4.0 4.0 4.1 Chloride (100 - 108 MEQ/L) 101 99 L 99 L 98 L Ionized Calcium (1.12 - 1.32 MMOL/L) 1.34 H 1.3 4 H 1.35 H 1.34 H Lactic Acid (0.9 - 1.7 mmol/l) 0.5 L 0.5 L 0.5 L 0.7 L Temperature (F) 97.5 97.5 97.5 97.3 O2 Delivery Device BiPAP BiPAP BiPAP BiPAP FiO2 (%) 40 40 40 40 12/29 2055 Blood Gas Puncture Site Art Line O2 Saturation (90 - 100 %) 94.1 ABG pH (7.35 - 7.45) 7.363 ABG pCO2 (35.0 - 45 mmHg) 72.2 *H ABG pO2 (80 - 100.0 mmHg) 77.1 L ABG HCO3 (22.0 - 26.0 MMOL/L) 41.2 *H ABG Total CO2 43.4 ABG Base Excess (-4.0 - 4.0 MMOL/L) 15.7 H ABG Hematocrit (33.0 - 45.0 %) 24 L ABG Hemoglobin (11.0 - 15.0 G/DL) 8.2 L Sodium (134 - 147 MEQ/L) 144 Potassium (3.4 - 5.0 MEQ/L) 3.5 Chloride (100 - 108 MEQ/L) 99 L Ionized Calcium (1.12 - 1.32 MMOL/L) 1.33 H Lactic Acid (0.9 - 1.7 mmol/l) 0.8 L Temperature (F) 98.1 O2 Delivery Device Cannula Laboratory Tests 12/29 12/29 12/29 12/29 12/29 1742 1216 1200 0817 0536 Chemistry Sodium (134 - 147 mEq/L) 142 Potassium (3.4 - 5.0 mEq/L) 3.6 Chloride (100 - 108 mEq/L) 100 Carbon Dioxide (21 - 33 mEq/l) 38 H Anion Gap (0 - 20) 7 BUN (7 - 18 mg/dL) 38 H Creatinine (0.6 - 1.3 mg/dL) 1.1 Glomerular Filtr Rate (70 - 80) 48.0 L Glucose (70 - 110 mg/dL) 249 H POC Glucose (70 - 110 MG/DL) 197 H 236 H 150 H 126 H Calcium (8.0 - 10.5 mg/dL) 9.5 Magnesium (1.80 - 2.40 mg/dL) 2.38 12/29/17 0536 0355 0355 0301 0300 Chemistry Sodium (134 - 147 mEq/L) 144 Potassium (3.4 - 5.0 mEq/L) 4.1 Chloride (100 - 108 mEq/L) 103 Carbon Dioxide (21 - 33 mEq/l) 38 H Anion Gap (0 - 20) 7 BUN (7 - 18 mg/dL) 40 H Creatinine (0.6 - 1.3 mg/dL) 1.0 POC Creatinine (0.6 - 1.0 mg/dL) 1.1 H 1.2 H Glomerular Filtr Rate (70 - 80) 53.6 L Glucose (70 - 110 mg/dL) 143 H POC Glucose (70 - 110 MG/DL) 124 H POC Glucose (mg/dL) (70 - 110 MG/DL) 122 H 125 H Calcium (8.0 - 10.5 mg/dL) 9.5 Magnesium (1.80 - 2.40 mg/dL) 2.29 12/29 12/29 12/29 12/28 12/28 0200 0054 0054 9329 2351 Chemistry POC Creatinine (0.6 - 1.0 mg/dL) 1.1 H 1.2 H POC Glucose (70 - 110 MG/DL) 126 H 120 H 43 L POC Glucose (mg/dL) (70 - 110 MG/DL) 106 120 H 12/28 12/28 12/28 12/28 12/28 2332 2100 2055 2054 1914 Chemistry Sodium (134 - 147 mEq/L) 145 Potassium (3.4 - 5.0 mEq/L) 3.6 Chloride (100 - 108 mEq/L) 103 Carbon Dioxide (21 - 33 mEq/l) 39 H Anion Gap (0 - 20) 7 BUN (7 - 18 mg/dL) 42 H Creatinine (0.6 - 1.3 mg/dL) 1.0 POC Creatinine (0.6 - 1.0 mg/dL) 1.5 H Glomerular Filtr Rate (70 - 80) 53.6 L Glucose (70 - 110 mg/dL) 120 H POC Glucose (70 - 110 MG/DL) 37 L 117 H 139 H POC Glucose (mg/dL) (70 - 110 MG/DL) 104 Calcium (8.0 - 10.5 mg/dL) 9.7 12/28 1808 Chemistry POC Glucose (70 - 110 MG/DL) 106 Laboratory Tests 12/29 0355 Hematology WBC (4.5 - 11.0 x10 3/uL) 9.0 RBC (3.54 - 5.02 x10 6/uL) 2.15 L Hgb (11.0 - 15.0 g/dL) 7.4 L Hct (33.0 - 45.0 %) 23.9 L MCV (81.0 - 99.0 fL) 111.2 H MCH (27.0 - 33.0 pg) 34.4 H MCHC (33.0 - 37.0 g/dL) 31.0 L RDW (11.5 - 14.5 %) 16.5 H Plt Count (150 - 400 x10 3/uL) 205 MPV (7.0 - 9.0 fL) 11.1 H Neut % (Auto) (56.0 - 77.0 %) 83.4 H Lymph % (Auto) (14.0 - 32.0 %) 4.5 L Barron % (Auto) (4.8 - 9.0 %) 8.8 Eos % (Auto) (0.3 - 3.7 %) 1.4 Baso % (Auto) (0.0 - 2.0 %) 0.1 Neut # (Auto) (2.0 - 7.6 x10 3/uL) 7.48 Lymph # (Auto) (1.0 - 3.8 x10 3/uL) 0.40 L Barron # (Auto) (0.1 - 0.8 x10 3/uL) 0.79 Eos # (Auto) (0.0 - 0.2 x10 3/uL) 0.13 Baso # (Auto) (0.0 - 0.2 x10 3/uL) 0.01 Abs Immat Gran (auto) (0.00 - 0.03 x10 3/uL) 0. 16 H Add Manual Diff NO Immature Gran % (0.0 - 2.0 %) 1.8 Nucleated RBC % (0 - 0 %) 0.7 H Nucleated RBCs # (Man) (0.0 - 0.1 x10 3/uL) 0.0 6 Radiology data: Recent Impressions: RADIOLOGY - XR CHEST 1 V 12/29 0617 Report Impression - Status: SIGNED Entered: 12/29/2021 0702 IMPRESSION: 1. The intracardiac pacer leads are grossly unch anged. 2. There is no significant interval change in ge neralized right pulmonary opacification. 3. There is mild improved aeration of both lung bases. 4. No pneumothorax is visible. Impression By: [email or web address] - Bill Kern M.D. Results: rythm personally re v'd, x-ray personally reviewed, current med profile rev'd Treatment Prophylaxis Treatment Prophylaxis Oxygen: CPAP/BIPAP Lines: arterial, CVC, peripheral Drain(s)/tube(s): Drain(s)/tube(s): chest (x3) Quality: Trauma Gen Surg Current Medications Current medication review: Home Medications: RIVAROXABAN (XARELTO) 20 MG PO DAILY amLODIPine (NORVASC) 5 MG PO DAILY cloNIDine (CATAPRES) 0.3 MG PO BID DOXAZOSIN (CARDURA) LISINOPRIL (ZESTRIL) OLMESARTAN (BENICAR) 40 MG PO DAILY PRAVASTATIN (PRAVACHOL) FUROSEMIDE (LASIX) 10 MG PO DAILY METOLAZONE (ZAROXOLYN) 10 MG PO DAILY POTASSIUM CHLORIDE ER (MICRO-K) 10 MEQ PO DAILY OMEPRAZOLE ER 20 MG PO DAILY GLIMEPIRIDE (AMARYL) 4 MG PO DAILY INSULIN DETEMIR (LEVEMIR FlexTouch (15mL)) 50 UN ITS SUBQ BID INSULIN LISPRO (HumaLOG CARTRIDGE (15mL)) 0 UNIT S SUBQ TID LIRAGLUTIDE (VICTOZA (6mL)) 1.8 MG SUBQ DAILY metFORMIN (GLUCOPHAGE) 1,000 MG PO BID ADALIMUMAB + SUPPLIES (HUMIRA PREFILLED PEN) 40 MG SUBQ Q14D azaTHIOprine (IMURAN) 50 MG PO DAILY I attest that the foregoing medication list in t medical record is true, accurate, and complete to the best of my knowled ge. Diagnosis, Assessment Plan Hospital course to date: This very pleasant 76-year-old female, from [facility], with past medical history of macular d egeneration, obesity, obstructive sleep apnea (CPAP at home), former smoker, hyp ertension, hyperlipidemia, diabetes, Crohn's disease , chronic atrial fibrillatio n status post 3 ablations in the past (on Xarelto), pacemaker placement who had a recent admission t o the hospital with heart failure symptoms. She has be en admitted to the hospital today for elective heart cath. Coronary angiogram showed severe multivess el coronary artery disease suitable for percutaneous intervention. CV surge ry called for evaluation. PLAN Patient has severe coronary artery disease and c onstrictive pericarditis. She will benefit from off-pump L CHAD to LAD and pericardiotomy. Dr. Romero explained to the patient the surgery, risks involv ed, STS score, benefits, complications and alternatives. She acknowledged understanding and is willing to proceed Preop work-up has been initiated We will tentatively schedule patient for surgery tomorrow. 12/18 Preop assessment ongoing No carotid stenosis on ultrasound CT chest reviewed with Dr. Romero Surgery rescheduled for tomorrow NPO after midnight Plan discussed with the patient 12/20 POD 1 Patient hemodynamically stable, cardiac index 3. 1 Required Bipap after extubation yesterday and ov ernight Trend ABGs- wean bipap as tolerated Decrease milrinone drip to 0.125, and continue v asopressin at 0.02 Urine output marginal- dopamine drip started at 3 Creatinine increased to 1.4, monitor strict I an d O's Encourage po intake, incentive spirometer use Try to get patient out of bed to chair today PT/OT Monitor patient closely in the CVICU 12/22/21 POD3 d/c chest tubes need to diuresis agressively 40 q12 edema needs legs elevated cxr appears wet d/c swan TPN due to bipap teleflex today keep TPN for now 12/23 POD 4 Labs and cxr reviewed Increase diuresis- monitor strict I Os Continue TPN On teleflex 60L 70%- wean as tolerated Monitor patient in CVICU 12/25/21 POD 6 back on bipap if reintubate consider trach still on TPN if trach consider PEG 12/26/21 POD 7 contiune bipap support alt with teleflex if reintubate will need trach and peg continue hyperal 12/29/21 improving less O2 requirements ambulating much better tolorating diet rahab vs LTAC placement Consultants: cardiology, cardiovascular surgery Electronically Signed by Tj Bonner MD on 12/13 10/03 at 180 RPT #:[id number] END OF REPORT 2021-12-29 13:46:00-00:[address] [facility] ([facility]) Rehab Progress Note REPORT#:[id number] REPORT STATUS: Signed DATE:12/29/21 TIME: 1346 PATIENT: SAÚL GILES UNIT #: [id number] ROOM/BED: [place] [address] : 43 AGE: 76 SEX: F ATTEND: Leah More MD ADM AUTHOR: Alicia Pantoja NP * ALL edits or amendments must be made on the [employer] document * Subjective Chief complaint: rehab follow-up Sitting up in chair wearing bippap mask very fatigue appearance Significant generalized weakness, fatigue No GOLD/N/V/D 14 systems reviewed and negative except that men tioned above. Objective General VS: Vital Signs: Date Time Temp Pulse Resp B/P B/P Pulse O2 O2 F low FiO2 Mean Ox Delivery Rate 12/29 1231 77 98 40 12/29 1227 71 98 40 12/29 0945 97.0 75 23 135/38 63 100 12/29 0930 97.0 75 29 154/41 71 99 12/29 0915 97.0 76 36 151/41 69 95 12/29 0900 97.0 75 27 151/37 65 88 12/29 0845 97.0 72 26 149/40 70 94 12/29 0830 97.0 75 28 148/41 71 93 12/29 0815 97.0 72 24 151/42 72 97 12/29 0815 98 High flow 10 60 nasal cannula 12/29 0800 97.2 72 14 132/36 60 100 12/29 0745 97.2 71 16 142/39 65 100 12/29 0730 High flow 10 nasal cannula 12/29 0730 97.2 75 13 147/40 67 100 12/29 0715 97.2 72 28 159/44 75 99 12/29 0700 97.3 72 26 172/48 81 100 12/29 0645 97.3 72 25 176/48 83 99 12/29 0630 97.5 73 22 173/48 81 100 12/29 0615 97.5 69 24 184/53 88 100 12/29 0600 76 48 100 12/29 0545 97.3 70 26 100 10/17 0530 97.5 70 25 100 10/17 0515 97.5 69 24 156/58 91 99 10/17 0500 97.5 69 24 106/35 54 100 10/17 0445 97.5 69 21 117/38 59 100 10/17 0430 97.5 69 24 126/40 63 99 10/17 0430 89 100 40 10/17 0415 97.5 69 17 120/39 61 98 10/17 0400 97.5 69 23 138/45 72 100 10/17 0345 97.5 69 25 130/46 71 99 10/17 0330 97.5 69 24 137/132 134 100 10/17 0315 97.3 69 23 142/47 76 100 10/17 0300 97.5 69 23 160/57 90 99 10/17 0245 97.5 73 28 160/61 96 98 10/17 0230 97.3 71 26 156/52 85 96 10/17 0215 97.5 71 30 168/61 97 96 10/17 0213 71 100 40 10/17 0200 97.5 44 22 152/53 86 96 10/17 0145 97.5 73 26 125/46 70 98 10/17 0130 97.3 75 25 114/43 63 100 10/17 0115 97.3 75 26 111/43 63 98 10/17 0100 97.3 75 25 112/43 64 98 10/17 0045 97.3 73 16 114/43 64 98 10/17 0040 70 99 40 10/17 0030 97.3 72 16 121/45 67 97 10/17 0015 97.3 75 16 122/47 69 98 10/17 0000 97.3 76 18 118/46 67 98 10/16 2345 97.5 76 26 162/58 92 93 10/16 2330 97.7 71 24 143/51 79 95 10/16 2315 97.9 75 23 150/52 82 93 10/16 2300 97.9 73 35 158/51 86 85 10/16 2245 98.1 70 35 151/52 85 96 10/16 2230 98.2 75 34 143/53 84 95 10/16 2215 97.7 73 33 144/52 80 99 10/16 2200 98.1 69 23 133/43 67 100 10/16 2145 98.1 69 27 122/32 57 100 10/16 2130 97.9 69 21 148/38 66 97 12/28 2114 98.1 69 34 136/35 61 97 12/28 2100 97.7 75 34 142/37 65 98 12/28 2044 98.1 73 43 150/41 72 98 12/28 2042 98 High flow 7 nasal cannula 12/28 2029 97.9 75 50 158/47 80 95 12/28 2014 98.2 72 48 156/42 74 93 12/29 1999 BiPAP 40 12/29 1999 98.1 74 28 155/45 77 96 12/28 194 98.2 72 44 157/43 75 91 12/28 193 98.2 70 24 163/43 77 98 12/28 1915 98.2 72 36 151/98 108 91 12/28 1900 98.4 72 29 162/49 80 99 12/28 1812 98.6 69 20 143/40 65 100 12/28 1800 98.6 71 28 144/42 68 99 12/28 1745 98.6 71 39 168/53 84 95 12/28 1730 98.6 72 29 152/45 75 94 12/28 1715 98.8 74 38 142/43 71 98 12/28 1701 146/65 94 12/28 1701 98.8 74 35 141/42 70 94 12/28 1700 98.8 72 28 143/42 71 94 12/28 1645 98.8 72 28 142/39 67 95 12/28 1615 98.8 73 22 131/38 63 96 12/28 1601 141/61 88 12/28 1601 98.8 69 23 131/36 61 100 12/28 1600 98.8 69 30 133/36 62 99 12/28 1545 98.8 75 29 135/37 65 98 12/28 1530 98.8 75 20 130/36 61 100 12/28 1515 98.6 75 26 129/35 60 97 12/28 1500 140/73 93 12/28 1500 98.6 69 25 139/35 62 96 12/28 1445 98.6 74 29 149/38 68 93 12/28 1430 98.8 71 28 154/41 70 97 12/28 1424 146/65 94 12/28 1424 94 High flow 7 nasal cannula 12/28 1424 98.8 69 27 159/39 70 95 12/28 1415 98.6 72 27 146/46 76 98 1016 1400 98.6 70 28 147/46 74 99 PATIENT WEIGHT: Weight (lb): 271 Weight (oz): 9.75 Weight (kg): 123.200 Medications: Active Meds + DC'd Last 24 Hrs Insulin Glargine (Lantus/Semglee) 25 UNIT DAILY SUBQ (DC) Insulin Glargine (Lantus/Semglee) 30 UNIT DAILY SUBQ Insulin Glargine (Lantus/Semglee) 20 UNIT BEDTIM E SUBQ Insulin Human Lispro (HUMALOG) 0 AC HS SUBQ Dextrose/Water (DEXTROSE 10% IN WATER) 125 ML DIR PRN IV (CKD) Dextrose/Water (DEXTROSE 10% IN WATER) 250 ML DIR PRN IV (CKD) Glucagon (GLUCAGON) 1 MG ASDIR PRN IM Amiodarone HCl (CORDARONE) 200 MG BID PO Furosemide (LASIX 40 mg/4 mL INJECTION) 40 MG ON CE ONE IV (DC) Dextrose/Water (DEXTROSE 50% W SYRINGE) 0 .STK-M ED ONE IV (DC) Lorazepam (ATIVAN) 0.25 MG ONCE ONE PO (DC) Albumin Human (ALBUMINAR-25%) 50 ML ONCE ONE IV (DC) Potassium Chloride (POTASSIUM CHLORIDE 20MEQ TAB .ER) 40 MEQ ONCE ONE PO (DC) Insulin Glargine (Lantus/Semglee) 30 UNIT BID QUINTANA BQ (DC) Albumin Human (ALBUMINAR-25%) 50 ML ONCE ONE IV (DC) Furosemide (LASIX 40 mg/4 mL INJECTION) 40 MG BI D 9A 5P IV Acetazolamide (DIAMOX) 500 MG Q12HR IV Sterile Water (WATER FOR INJECTION) 5 ML ASDIR P RN IV Sterile Water (WATER FOR INJECTION) 5 ML ASDIR P RN IV Sodium Chloride (SODIUM CHLORIDE) 4 ML RTBID NEB Melatonin (Melatonin) 3 MG BEDTIME PO Sodium Chloride (SODIUM CHLORIDE) 10 ML BID IV Sodium Chloride (SODIUM CHLORIDE) 10 ML ASDIR NE N IV Pantoprazole (PROTONIX) 40 MG DAILY PO Dexmedetomidine/Sodium Chloride (PRECEDEX 1000MC G/NS 250ML) 250 ML ASDIR IV Bisacodyl (DULCOLAX) 10 MG DAILY PRN PRN RECTAL Lactulose (LACTULOSE) 20 GM DAILY PRN PRN PO Magnesium Hydroxide (MILK OF MAGNESIA) 30 ML PETER LY PRN PRN PO Aspirin (ASPIRIN) 81 MG DAILY PO Clopidogrel Bisulfate (Plavix) 75 MG DAILY PO Cyanocobalamin (Vitamin B-12 500 mcg tab) 500 MC G DAILY PO Ferrous Sulfate (FERROUS SULFATE) 325 MG DAILY P O Metolazone (metOLazone) 5 MG DAILY PO Polyethylene Glycol (MIRALAX) 17 GM DAILY PO Atorvastatin Calcium (LIPITOR) 40 MG 2100 PO Docusate Sodium (DOCUSATE SODIUM) 100 MG BID PO Metoprolol Tartrate (LOPRESSOR) 12.5 MG Q12HR PO Senna (SENOKOT) 17.6 MG BEDTIME PO Amiodarone HCl (CORDARONE) 200 MG TID PO (DC) Acetaminophen (TYLENOL) 650 MG Q4H PRN PRN PO Insulin Human Regular (HumuLIN R) 100 UNIT ASDIR IV (CKD) Sodium Chloride (SODIUM CHLORIDE 0.9%) 99 ML Acetylcysteine (MUCOMYST FOR RT) 200 MG RTQ6H N EB Albuterol/Ipratropium (DUONEB) 3 ML RTQ6H NEB Bisacodyl (DULCOLAX) 10 MG ONCE PRN RECTAL Dopamine HCl/Dextrose (DOPamine 400MG/D5W 250ML) 250 ML ASDIR IV Milrinone Lactate/Dextrose (MILRINONE 20MG/D5W 1 00ML) 100 ML ASDIR IV ( CKD) Vasopressin (VASOSTRICT 20 Unit/NS 100ML) 100 ML ASDIR IV (CKD) Acetaminophen (TYLENOL) 650 MG Q4H PRN PRN RECTA L Calcium Chloride (CALCIUM CHLORIDE) 1 GM ASDIR P RN IV Dextrose/Water (DEXTROSE 10% IN WATER) 125 ML DIR PRN IV (CKD) Dextrose/Water (DEXTROSE 10% IN WATER) 250 ML DIR PRN IV (CKD) Glucagon (GLUCAGON) 1 MG ASDIR PRN IM Magnesium Sulfate (MAGNESIUM SULFATE 4GM/SWFI 10 0ML) 100 ML ASDIR PRN IV Magnesium Sulfate (MAGNESIUM SULFATE 2GM/SWFI 50 ML) 50 ML ASDIR PRN IV Magnesium Sulfate/Dextrose (MAGNESIUM SULFATE 1G M/D5W 100ML) 100 ML ASDIR PRN IV Nitroglycerin/Dextrose (NITROGLYCERIN 50,000MCG/ D5W 250ML) 250 ML ASDIR IV Norepinephrine Bitartrate (NOREPINEPHRINE 8 MG/N S 250 ML) 250 ML TITRATE IV Potassium Chloride (KCL 20MEQ/SWFI 100ML) 100 ML ASDIR PRN IV Sodium Bicarbonate (SODIUM BICARBONATE) 50 MEQ A SDIR PRN IV Ondansetron HCl (ZOFRAN) 4 MG Q6H PRN PRN IV Physical Exam General appearance: chronically ill appearing, o bese, respiratory support ( [place]), awake, oriented Psych: alert, oriented x 3 HEENT: anicteric, mucosal membranes moist Neck: supple, no JVD Cardiovascular: regular rate rhythm, no murmur Respiratory: diminished breath sounds (bases ), on oxygen (Hi flow O2 ) Abdomen: bowel sounds present, non-distended, so ft, non-tender Skin: dry, intact, no rash, incisions D/I Musculoskeletal - general: Musculoskeletal - general: swelling (BLE +3), m oving all ext AG 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, 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, normal speech, n o motor deficits, no sensory deficits Results Findings/Data: Laboratory Tests: 12/29 12/29 12/29 12/29 12/29 1216 1200 0817 0536 0536 Blood Gas Puncture Site Art Line O2 Saturation (90 - 100 %) 95.5 ABG pH (7.35 - 7.45) 7.357 ABG pCO2 (35.0 - 45 mmHg) 71.1 *H ABG pO2 (80 - 100.0 mmHg) 83.8 ABG PO2/FiO2 Ratio (mm/Hg) 209.50 ABG HCO3 (22.0 - 26.0 MMOL/L) 40.1 *H ABG Total CO2 42.4 ABG Base Excess (-4.0 - 4.0 MMOL/L) 14.5 H ABG Hematocrit (33.0 - 45.0 %) 23 L ABG Hemoglobin (11.0 - 15.0 G/DL) 7.8 L Sodium (134 - 147 MEQ/L) 144 Potassium (3.4 - 5.0 MEQ/L) 3.9 Chloride (100 - 108 MEQ/L) 101 Ionized Calcium (1.12 - 1.32 MMOL/L) 1.34 H Lactic Acid (0.9 - 1.7 mmol/l) 0.5 L Temperature (F) 97.5 O2 Delivery Device BiPAP FiO2 (%) 40 Chemistry Sodium (134 - 147 mEq/L) 142 Potassium (3.4 - 5.0 mEq/L) 3.6 Chloride (100 - 108 mEq/L) 100 Carbon Dioxide (21 - 33 mEq/l) 38 H Anion Gap (0 - 20) 7 BUN (7 - 18 mg/dL) 38 H Creatinine (0.6 - 1.3 mg/dL) 1.1 POC Creatinine (0.6 - 1.0 mg/dL) 1.1 H Glomerular Filtr Rate (70 - 80) 48.0 L Glucose (70 - 110 mg/dL) 249 H POC Glucose (70 - 110 MG/DL) 236 H 150 H 126 H POC Glucose (mg/dL) (70 - 110 MG/DL) 122 H Calcium (8.0 - 10.5 mg/dL) 9.5 Magnesium (1.80 - 2.40 mg/dL) 2.38 12/29 12/29 12/29 12/29 0351 5063 0301 0300 Blood Gas Puncture Site Art Line O2 Saturation (90 - 100 %) 95.7 ABG pH (7.35 - 7.45) 7.367 ABG pCO2 (35.0 - 45 mmHg) 73.2 *H ABG pO2 (80 - 100.0 mmHg) 84.4 ABG PO2/FiO2 Ratio (mm/Hg) 211.00 ABG HCO3 (22.0 - 26.0 MMOL/L) 42.4 *H ABG Total CO2 44.7 ABG Base Excess (-4.0 - 4.0 MMOL/L) 16.9 H ABG Hematocrit (33.0 - 45.0 %) 24 L ABG Hemoglobin (11.0 - 15.0 G/DL) 8.2 L Sodium (134 - 147 MEQ/L) 143 Potassium (3.4 - 5.0 MEQ/L) 4.0 Chloride (100 - 108 MEQ/L) 99 L Ionized Calcium (1.12 - 1.32 MMOL/L) 1.34 H Lactic Acid (0.9 - 1.7 mmol/l) 0.5 L Temperature (F) 97.5 O2 Delivery Device BiPAP FiO2 (%) 40 Chemistry Sodium (134 - 147 mEq/L) 144 Potassium (3.4 - 5.0 mEq/L) 4.1 Chloride (100 - 108 mEq/L) 103 Carbon Dioxide (21 - 33 mEq/l) 38 H Anion Gap (0 - 20) 7 BUN (7 - 18 mg/dL) 40 H Creatinine (0.6 - 1.3 mg/dL) 1.0 POC Creatinine (0.6 - 1.0 mg/dL) 1.2 H Glomerular Filtr Rate (70 - 80) 53.6 L Glucose (70 - 110 mg/dL) 143 H POC Glucose (70 - 110 MG/DL) 124 H POC Glucose (mg/dL) (70 - 110 MG/DL) 125 H Calcium (8.0 - 10.5 mg/dL) 9.5 Magnesium (1.80 - 2.40 mg/dL) 2.29 Hematology WBC (4.5 - 11.0 x10 3/uL) 9.0 RBC (3.54 - 5.02 x10 6/uL) 2.15 L Hgb (11.0 - 15.0 g/dL) 7.4 L Hct (33.0 - 45.0 %) 23.9 L MCV (81.0 - 99.0 fL) 111.2 H MCH (27.0 - 33.0 pg) 34.4 H MCHC (33.0 - 37.0 g/dL) 31.0 L RDW (11.5 - 14.5 %) 16.5 H Plt Count (150 - 400 x10 3/uL) 205 MPV (7.0 - 9.0 fL) 11.1 H Neut % (Auto) (56.0 - 77.0 %) 83.4 H Lymph % (Auto) (14.0 - 32.0 %) 4.5 L Barron % (Auto) (4.8 - 9.0 %) 8.8 Eos % (Auto) (0.3 - 3.7 %) 1.4 Baso % (Auto) (0.0 - 2.0 %) 0.1 Neut # (Auto) (2.0 - 7.6 x10 3/uL) 7.48 Lymph # (Auto) (1.0 - 3.8 x10 3/uL) 0.40 L Barron # (Auto) (0.1 - 0.8 x10 3/uL) 0.79 Eos # (Auto) (0.0 - 0.2 x10 3/uL) 0.13 Baso # (Auto) (0.0 - 0.2 x10 3/uL) 0.01 Abs Immat Gran (auto) (0.00 - 0.03 x10 3/uL) 0. 16 H Add Manual Diff NO Immature Gran % (0.0 - 2.0 %) 1.8 Nucleated RBC % (0 - 0 %) 0.7 H Nucleated RBCs # (Man) (0.0 - 0.1 x10 3/uL) 0.0 6 12/29 12/29 12/29 12/28 12/28 0200 0054 0054 3266 1324 Blood Gas Puncture Site Art Line Art Line O2 Saturation (90 - 100 %) 92.8 94.0 ABG pH (7.35 - 7.45) 7.327 L 7.326 L ABG pCO2 (35.0 - 45 mmHg) 80.5 *H 81.2 *H ABG pO2 (80 - 100.0 mmHg) 73.3 L 78.4 L ABG PO2/FiO2 Ratio (mm/Hg) 183.25 196.00 ABG HCO3 (22.0 - 26.0 MMOL/L) 42.4 *H 42.8 *H ABG Total CO2 45.0 45.3 ABG Base Excess (-4.0 - 4.0 MMOL/L) 16.3 H 16.6 H ABG Hematocrit (33.0 - 45.0 %) 23 L 22 L ABG Hemoglobin (11.0 - 15.0 G/DL) 7.9 L 7.5 L Martin Test N/A Sodium (134 - 147 MEQ/L) 144 143 Potassium (3.4 - 5.0 MEQ/L) 4.0 4.1 Chloride (100 - 108 MEQ/L) 99 L 98 L Ionized Calcium (1.12 - 1.32 MMOL/L) 1.35 H 1.3 4 H Lactic Acid (0.9 - 1.7 mmol/l) 0.5 L 0.7 L Temperature (F) 97.5 97.3 O2 Delivery Device BiPAP BiPAP FiO2 (%) 40 40 Chemistry POC Creatinine (0.6 - 1.0 mg/dL) 1.1 H 1.2 H POC Glucose (70 - 110 MG/DL) 126 H 120 H 43 L POC Glucose (mg/dL) (70 - 110 MG/DL) 106 120 H 12/28 12/28 12/28 12/28 12/28 2332 2100 2055 2054 1914 Blood Gas Puncture Site Art Line O2 Saturation (90 - 100 %) 94.1 ABG pH (7.35 - 7.45) 7.363 ABG pCO2 (35.0 - 45 mmHg) 72.2 *H ABG pO2 (80 - 100.0 mmHg) 77.1 L ABG HCO3 (22.0 - 26.0 MMOL/L) 41.2 *H ABG Total CO2 43.4 ABG Base Excess (-4.0 - 4.0 MMOL/L) 15.7 H ABG Hematocrit (33.0 - 45.0 %) 24 L ABG Hemoglobin (11.0 - 15.0 G/DL) 8.2 L Sodium (134 - 147 MEQ/L) 144 Potassium (3.4 - 5.0 MEQ/L) 3.5 Chloride (100 - 108 MEQ/L) 99 L Ionized Calcium (1.12 - 1.32 MMOL/L) 1.33 H Lactic Acid (0.9 - 1.7 mmol/l) 0.8 L Temperature (F) 98.1 O2 Delivery Device Cannula Chemistry Sodium (134 - 147 mEq/L) 145 Potassium (3.4 - 5.0 mEq/L) 3.6 Chloride (100 - 108 mEq/L) 103 Carbon Dioxide (21 - 33 mEq/l) 39 H Anion Gap (0 - 20) 7 BUN (7 - 18 mg/dL) 42 H Creatinine (0.6 - 1.3 mg/dL) 1.0 POC Creatinine (0.6 - 1.0 mg/dL) 1.5 H Glomerular Filtr Rate (70 - 80) 53.6 L Glucose (70 - 110 mg/dL) 120 H POC Glucose (70 - 110 MG/DL) 37 L 117 H 139 H POC Glucose (mg/dL) (70 - 110 MG/DL) 104 Calcium (8.0 - 10.5 mg/dL) 9.7 12/28 12/28 12/28 12/28 12/28 1808 1634 1630 1448 1349 Blood Gas Puncture Site Art Line O2 Saturation (90 - 100 %) 94.3 ABG pH (7.35 - 7.45) 7.396 ABG pCO2 (35.0 - 45 mmHg) 65.9 *H ABG pO2 (80 - 100.0 mmHg) 74.6 L ABG HCO3 (22.0 - 26.0 MMOL/L) 40.6 *H ABG Total CO2 42.7 ABG Base Excess (-4.0 - 4.0 MMOL/L) 15.7 H ABG Hematocrit (33.0 - 45.0 %) 25 L ABG Hemoglobin (11.0 - 15.0 G/DL) 8.5 L Sodium (134 - 147 MEQ/L) 143 Potassium (3.4 - 5.0 MEQ/L) 3.6 Chloride (100 - 108 MEQ/L) 98 L Ionized Calcium (1.12 - 1.32 MMOL/L) 1.35 H Lactic Acid (0.9 - 1.7 mmol/l) 0.7 L Temperature (F) 98 O2 Delivery Device Cannula Chemistry POC Creatinine (0.6 - 1.0 mg/dL) 1.2 H POC Glucose (70 - 110 MG/DL) 106 162 H 225 H 21 2 H POC Glucose (mg/dL) (70 - 110 MG/DL) 131 H Diagnosis, Assessment Plan Free Text A P: 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 fib Hypoxic respiratory failure Plan: Continue PT/OT Out of bed to chair Work on strength, bed mobility, transfers, gait Increase endurance Fall precautions Monitor p.o. intake and nutrition Strict decubitus precautions Monitor anemia Advance therapies as tolerated Tolerating regular diet Continue diuresis- monitor strict I Os Lasix drip discontinued. Started on IV Lasix and Diamox Weigh patient daily Advance therapies as tolerated Pt on lasix and insulin drip Metabolic alkalosis secondary to diuretics : Vicki n to give acetazoleamide and monitor closely. Will eventually need IRF when medically ready. CLOF with therapy Ambulation 20 feet, 5 feet, 15 feet x 2 moderate assistance with rolling walker, shuffling gait short steps head down TT: 34 mins, reviewing chart, notes, labs, meds, therapy notes, discussed medical mgt, and rehab poc, goals. Answered all questions Rehab attestation: Face to face exam completed. Treatment plan disc ussed with patient. at 1349 RPT #:[id number] END OF REPORT 2021-12-29 12:11:00-00:00 [facility] ([facility] Nephrology Progress Note REPORT#:[id number] REPORT STATUS: Signed DATE:12/29/21 TIME: 1211 PATIENT: SAÚL GILES UNIT #: [id number] ROOM/BED: [place] [id number] : 43 AGE: 76 SEX: F ATTEND: Leah More MD ADM AUTHOR: Suki Fuchs MD * ALL edits or amendments must be made on the [employer]/computer document * Subjective Chief complaint: chest pain HPI: This is a 76-year-old female who has past medica l history of hypertension, diabetes, coronary artery disease, atrial fibril lation who presented with worsening shortness of breath and on further wor k-up was 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 She was with normal kidney function prior to surgery and afte r her surgery she began to develop oliguria. Her procedure was done without any complications but after her surgery she did require pressor support for hypotension and she was intubated for respiratory acidosis and hypoxia a nd she was treated with vancomycin for infection treatment. When she was seen this morning she continued to have hypotension and her heart rate was paced by her permanent pacemaker and her urine outp ut was 20 to 30/h. Her family at bedside denied any history of kidney disease, kidney stone, chronic NSAID use or any urinary complaints. They also endorse that her b lood pressure and diabetes were mostly controlled. 12/28 Today she was eating in a chair and appeared com fortable. Objective Physical Exam Head/eyes: atraumatic, normocephalic ENT: ET tube Neck: no JVD, no lymphadenopathy Cardiovascular: normal heart sounds, regular rat e and rhythm Respiratory: aerating well, clear to auscultatio n Abdomen: soft, no pulsatile mass Genitourinary: urinary catheter Extremities: pitting edema, no gangrene, no swel ling Treatment Prophylaxis Treatment Prophylaxis Drain(s)/tube(s): Drain(s)/tube(s): chest (x3) Diagnosis, Assessment Plan Free Text A P: This is a 76-year-old female known to have hyper tension, diabetes, atrial fibrillation, s/p permanent pacemaker and histor y of ablation presenting with shortness of breath and found to have multivesse l coronary artery disease therefore she had CABG on December 19 after which she has developed oliguria. Nephrology is following for: 1. Acute kidney injury: Most likely it i s prerenal (cardiorenal), she has been hypotensive postoperatively with require ment for pressor support and inotropic support. Plan is to increase inotropic support or pressor support to bring mean arterial pressure above 65 and give albumin with Lasix to see if it helps him diurese. If he does not respond to higher dose L asix with albumin then I will consider starting him on CRRT to prevent hyper v olemia. 2. Hypervolemia: Plan is to give Lasix a nd if he does not respond to start him on CRRT for extra fluid removal. 3. His electrolytes were all reviewed to be in normal range plan was to monitor and replace as needed. 4. He was receiving vancomycin so plan w as to monitor vancomycin trough levels to prevent ATN. 12/21 1. Acute kidney injury: Most likely it i s prerenal (cardiorenal), she has been hypotensive postoperatively with require ment for pressor support and inotropic support. She responded to Lasix after her blood pressure improved with higher dose vasopressin and she was given albumin. Plan was to continue twice a day Lasix and albumin for hypervolemia. 2. Hypervolemia: Plan is to give Lasix with albu min twice daily and increase dose if needed. 3. His electrolytes were all reviewed to be in normal range plan was to monitor and replace as needed. 4. He was receiving vancomycin so plan w as to monitor vancomycin trough levels to prevent ATN. 12/22 1. Acute kidney injury: Most likely it i s prerenal (cardiorenal), she has been hypotensive postoperatively with require ment for pressor support and inotropic support. She responded to Lasix after her blood pressure improved with higher dose vasopressin and she was given albumin. Vicki n was to continue Lasix and albumin for hypervolemia.Plan to increase dose t o reach goal of 1 L negative Q12H. 2. Hypervolemia: Plan is to give Lasix with albu min and increase dose if needed. 3. His electrolytes were all reviewed to be in normal range plan was to monitor and replace as needed. 4. He was receiving vancomycin so plan w as to monitor vancomycin trough levels to prevent ATN. 12/23 1. Acute kidney injury: Most likely it i s prerenal (cardiorenal), she has been hypotensive postoperatively with require ment for pressor support and inotropic support. She responded to Lasix after her blood pressure improved with higher dose vasopressin and she was given albumin. Plan was to continue Lasix and albumin for hypervolemia.Plan to increase dose t o reach goal of 1 L negative Q12H. 2. Hypervolemia: Plan is to give Lasix with albu min and increase dose if needed. 3. Her electrolytes were all reviewed to be in n ormal range plan was to monitor and replace as needed. 4. She was receiving vancomy sanjana so plan was to monitor vancomycin trough levels to prevent ATN. 5/ Metabolic alkalosis secondary to diur etics : Plan to give acetazoleamide if worsening. 12/24 1. Acute kidney injury: Resolved, she is respond ing to lasix. 2. Hypervolemia: Plan to continue lasix as rhys ated. 3. Her electrolytes were all reviewed to be in n ormal range plan was to monitor and replace as needed. 4. She was receiving vancomy sanjana so plan was to monitor vancomycin trough levels to prevent ATN. 5/ Metabolic alkalosis secondary to diur etics : Plan to give acetazoleamide if worsening. 12/25 1. Acute kidney injury: Resolved, she is respond ing to lasix. 2. Hypervolemia: Plan to continue lasix as rhys ated.Today it was held for metabolic alkalosis. 3. Her electrolytes were all reviewed to be in n ormal range plan was to monitor and replace as needed. 4. She was receiving vancomy sanjana so plan was to monitor vancomycin trough levels to prevent ATN. 5/ Metabolic alkalosis secondary to diur etics : Plan to give acetazoleamide if worsening. 12/26 1. Acute kidney injury: Resolved, she is respond ing to lasix. 2. Hypervolemia: Plan to continue lasix as tolerated.Today she was on low dose drip. 3. Her electrolytes were all reviewed to be in n ormal range plan was to monitor and replace as needed. 4. She was receiving vancomy sanjana so plan was to monitor vancomycin trough levels to prevent ATN. 5/ Metabolic alkalosis secondary to diur etics : Plan to give acetazoleamide if worsening. 12/27 1. Acute kidney injury: Resolved, she is respond ing to lasix. 2. Hypervolemia: Plan to continue lasix as tolerated.Today she was on low dose twice daily lasix. 3. Hypokalemia/hypomagnesemia:secondary to diure tics, plan was to monitor and replace as needed. 4. She was receiving vancomy sanjana so plan was to monitor vancomycin trough levels to prevent ATN. 5/ Metabolic alkalosis secon lilli to diuretics : Plan to give acetazoleamide and monitor closely. 12/28 1. Acute kidney injury: Resolved, she is respond ing to lasix. 2. Hypervolemia: Plan to continue lasix as tolerated.Today she was on low dose twice daily lasix. 3. Hypokalemia/hypomagnesemia:secondary to diure tics, plan was to monitor and replace as needed. 4. She was receiving vancomy sanjana so plan was to monitor vancomycin trough levels to prevent ATN. 5/ Metabolic alkalosis secon lilli to diuretics : Plan to give acetazoleamide and monitor closely. 12/28 1. Acute kidney injury: Resolved, she is respond ing to lasix. 2. Hypervolemia: Plan to continue lasix as tolerated.Today she was on low dose twice daily lasix. 3. Hypokalemia/hypomagnesemia:secondary to diure tics, plan was to monitor and replace as needed. 4. She was receiving vancomy sanjana so plan was to monitor vancomycin trough levels to prevent ATN. 5/ Metabolic alkalosis secon lilli to diuretics : Plan to give acetazoleamide and monitor closely. 12/28 1. Acute kidney injury: Resolved, she is respond ing to lasix. 2. Hypervolemia: Plan to continue lasix as tolerated.Today she was on low dose twice daily lasix. 3. Hypokalemia/hypomagnesemia:secondary to diure tics, plan was to monitor and replace as needed. 4. She was receiving vancomy sanjana so plan was to monitor vancomycin trough levels to prevent ATN. 5/ Metabolic alkalosis secon lilli to diuretics : Plan to give acetazoleamide and monitor closely. Consultants: cardiology, cardiovascular surgery Electronically Signed by Suki Fuchs MD on at 2326 RPT #:[id number] END OF REPORT 2021-12-29 11:17:00-00:00 [facility]) Hospitalist Progress Note REPORT#:[id number] REPORT STATUS: Signed DATE:12/29/21 TIME: 1117 PATIENT: SAÚL GILES UNIT #: [id number] ROOM/BED: [place] [id number] : 43 AGE: 76 SEX: F ATTEND: Leah More MD ADM AUTHOR: Meryl Rosa MD * ALL edits or amendments must be made on the [employer] document * Subjective Chief complaint: she is on bipap . she remain edema acute respiratory failure --post CABG HPI: 76 years old female with PMH of macular degeneration, obesity, obstructive sleep apnea (CPAP at home), former smoker, hypertensio n, hyperlipidemia, diabetes, Crohn's disease, chronic atr ial fibrillation status post 3 ablations in the past (on Xarelto), pacemaker plac ement is admitted to the hospital post cardiac cath . she need CABG . she had sob for years . sob go t worse . she was admitted to the hospital in [place] . she had cath 3 we eks ago . she was reffered to here for stents placement . she had cath yesterd ay . it show multiple vessels CAD . she is recommend CABG . she still feel sob . no cp no nausea no vomiting no fever no abdominal pain no dizziness . Review of Systems Constitutional: Denies: fever, lethargy. Respiratory: Reports: SOB. Denies: wheezing. Cardiovascular: Reports: DOUGLASS (dyspnea on exertion), edema. Denie s: chest pain, orthopnea, palpitations. GI: Denies: abdominal pain, nausea, vomiting. Neuro: Denies: dizziness. Objective General VS/I O: Vital Signs: Date Time Temp Pulse Resp B/P B/P Pulse O2 O2 F low FiO2 Mean Ox Delivery Rate 12/29 944 36.1 75 23 135/38 63 100 12/29 929 36.1 75 29 154/41 71 99 12/29 914 36.1 76 36 151/41 69 95 12/29 899 36.1 75 27 151/37 65 88 10/17 0845 36.1 72 26 149/40 70 94 10/17 0830 36.1 75 28 148/41 71 93 10/17 0815 36.1 72 24 151/42 72 97 10/17 0815 98 High flow 10 60 nasal cannula 10/17 0800 36.2 72 14 132/36 60 100 10/17 0745 36.2 71 16 142/39 65 100 10/17 0730 36.2 75 13 147/40 67 100 10/17 0715 36.2 72 28 159/44 75 99 10/17 0700 36.3 72 26 172/48 81 100 10/17 0645 36.3 72 25 176/48 83 99 10/17 0630 36.4 73 22 173/48 81 100 10/17 0615 36.4 69 24 184/53 88 100 10/17 0600 76 48 100 10/17 0545 36.3 70 26 100 10/17 0530 36.4 70 25 100 10/17 0515 36.4 69 24 156/58 91 99 10/17 0500 36.4 69 24 106/35 54 100 10/17 0445 36.4 69 21 117/38 59 100 10/17 0430 36.4 69 24 126/40 63 99 10/17 0430 89 100 40 10/17 0415 36.4 69 17 120/39 61 98 10/17 0400 36.4 69 23 138/45 72 100 10/17 0345 36.4 69 25 130/46 71 99 10/17 0330 36.4 69 24 137/132 134 100 10/17 0315 36.3 69 23 142/47 76 100 10/17 0300 36.4 69 23 160/57 90 99 10/17 0245 36.4 73 28 160/61 96 98 10/17 0230 36.3 71 26 156/52 85 96 10/17 0215 36.4 71 30 168/61 97 96 10/17 0213 71 100 40 10/17 0200 36.4 44 22 152/53 86 96 10/17 0145 36.4 73 26 125/46 70 98 10/17 0130 36.3 75 25 114/43 63 100 10/17 0115 36.3 75 26 111/43 63 98 10/17 0100 36.3 75 25 112/43 64 98 10/17 0045 36.3 73 16 114/43 64 98 10/17 0040 70 99 40 12/29 0030 36.3 72 16 121/45 67 97 12/29 0015 36.3 75 16 122/47 69 98 12/29 0000 36.3 76 18 118/46 67 98 12/28 2345 36.4 76 26 162/58 92 93 12/28 2330 36.5 71 24 143/51 79 95 12/28 2315 36.6 75 23 150/52 82 93 12/28 2300 36.6 73 35 158/51 86 85 12/28 2245 36.7 70 35 151/52 85 96 12/28 2230 36.8 75 34 143/53 84 95 12/28 2215 36.5 73 33 144/52 80 99 12/28 2200 36.7 69 23 133/43 67 100 12/28 2145 36.7 69 27 122/32 57 100 12/28 2130 36.6 69 21 148/38 66 97 12/28 2115 36.7 69 34 136/35 61 97 12/28 2100 36.5 75 34 142/37 65 98 12/28 2045 36.7 73 43 150/41 72 98 12/28 2042 98 High flow 7 nasal cannula 12/28 2029 36.6 75 50 158/47 80 95 12/28 2014 36.8 72 48 156/42 74 93 12/29 1999 BiPAP 40 12/29 1999 36.7 74 28 155/45 77 96 12/28 1945 36.8 72 44 157/43 75 91 12/28 1930 36.8 70 24 163/43 77 98 12/28 1915 36.8 72 36 151/98 108 91 12/28 1900 36.9 72 29 162/49 80 99 12/28 1812 37.0 69 20 143/40 65 100 12/28 1800 37.0 71 28 144/42 68 99 12/28 1745 37.0 71 39 168/53 84 95 12/28 1730 37.0 72 29 152/45 75 94 12/28 1715 37.1 74 38 142/43 71 98 12/28 1701 146/65 94 12/28 1701 37.1 74 35 141/42 70 94 12/28 1700 37.1 72 28 143/42 71 94 12/28 1645 37.1 72 28 142/39 67 95 12/28 1615 37.1 73 22 131/38 63 96 12/28 1601 141/61 88 12/28 1601 37.1 69 23 131/36 61 100 12/28 1600 37.1 69 30 133/36 62 99 12/28 1545 37.1 75 29 135/37 65 98 12/28 1530 37.1 75 20 130/36 61 100 12/28 1515 37.0 75 26 129/35 60 97 12/28 1500 140/73 93 12/28 1500 37.0 69 25 139/35 62 96 12/28 1445 37.0 74 29 149/38 68 93 12/28 1430 37.1 71 28 154/41 70 97 12/28 1424 146/65 94 12/28 1424 94 High flow 7 nasal cannula 12/28 1424 37.1 69 27 159/39 70 95 12/28 1415 37.0 72 27 146/46 76 98 12/28 1400 37.0 70 28 147/46 74 99 12/28 1345 36.9 74 17 123/38 60 100 12/28 1330 36.9 75 19 141/45 70 98 12/28 1315 36.8 72 20 148/45 74 99 12/28 1300 36.9 74 22 145/46 73 100 12/28 1245 37.0 72 26 159/57 86 96 12/28 1230 37.1 69 24 153/56 84 99 12/28 1227 37.1 70 27 152/56 83 100 12/28 1215 37.0 75 17 134/46 72 99 12/28 1204 37.0 75 15 112/32 54 100 12/28 1200 37.0 75 17 117/32 56 100 12/28 1145 37.0 85 19 130/37 67 100 12/28 1142 71 100 40 12/28 1142 100 BiPAP 40 12/28 1130 37.0 70 23 128/39 66 100 24 hour I O ending at 0700: 12/29 0700 12/28 1900 Intake Total 275.00 1437.90 Output Total 640 1135 Balance -365.00 302.90 Intake, IV 275.00 137.90 Intake, Oral 580 Intake, Oral 720 Supplement Output, Urine 640 1135 Patient 123.2 kg Weight Weight Standing scale Measurement Method PATIENT WEIGHT: Weight (lb): 271 Weight (oz): 9.75 Weight (kg): 123.200 Medications: Active Meds + DC'd Last 24 Hrs Insulin Glargine (Lantus/Semglee) 25 UNIT DAILY SUBQ Insulin Glargine (Lantus/Semglee) 20 UNIT BEDTIM E SUBQ Amiodarone HCl (CORDARONE) 200 MG BID PO Furosemide (LASIX 40 mg/4 mL INJECTION) 40 MG ON CE ONE IV (DC) Dextrose/Water (DEXTROSE 50% W SYRINGE) 0 .STK-M ED ONE IV (DC) Lorazepam (ATIVAN) 0.25 MG ONCE ONE PO (DC) Albumin Human (ALBUMINAR-25%) 50 ML ONCE ONE IV (DC) Potassium Chloride (POTASSIUM CHLORIDE 20MEQ TAB .ER) 40 MEQ ONCE ONE PO (DC) Insulin Glargine (Lantus/Semglee) 30 UNIT BID QUINTANA BQ (DC) Albumin Human (ALBUMINAR-25%) 50 ML ONCE ONE IV (DC) Furosemide (LASIX 40 mg/4 mL INJECTION) 40 MG BI D 9A 5P IV Acetazolamide (DIAMOX) 500 MG Q12HR IV Sterile Water (WATER FOR INJECTION) 5 ML ASDIR P RN IV Sterile Water (WATER FOR INJECTION) 5 ML ASDIR P RN IV Sodium Chloride (SODIUM CHLORIDE) 4 ML RTBID NEB Melatonin (Melatonin) 3 MG BEDTIME PO Sodium Chloride (SODIUM CHLORIDE) 10 ML BID IV Sodium Chloride (SODIUM CHLORIDE) 10 ML ASDIR NE N IV Pantoprazole (PROTONIX) 40 MG DAILY PO Dexmedetomidine/Sodium Chloride (PRECEDEX 1000MC G/NS 250ML) 250 ML ASDIR IV Bisacodyl (DULCOLAX) 10 MG DAILY PRN PRN RECTAL Lactulose (LACTULOSE) 20 GM DAILY PRN PRN PO Magnesium Hydroxide (MILK OF MAGNESIA) 30 ML PETER LY PRN PRN PO Aspirin (ASPIRIN) 81 MG DAILY PO Clopidogrel Bisulfate (Plavix) 75 MG DAILY PO Cyanocobalamin (Vitamin B-12 500 mcg tab) 500 MC G DAILY PO Ferrous Sulfate (FERROUS SULFATE) 325 MG DAILY P O Metolazone (metOLazone) 5 MG DAILY PO Polyethylene Glycol (MIRALAX) 17 GM DAILY PO Atorvastatin Calcium (LIPITOR) 40 MG 2100 PO Docusate Sodium (DOCUSATE SODIUM) 100 MG BID PO Metoprolol Tartrate (LOPRESSOR) 12.5 MG Q12HR PO Senna (SENOKOT) 17.6 MG BEDTIME PO Amiodarone HCl (CORDARONE) 200 MG TID PO (DC) Acetaminophen (TYLENOL) 650 MG Q4H PRN PRN PO Tramadol HCl (ULTRAM) 25 MG Q4H PRN PRN PO (DC) Tramadol HCl (ULTRAM) 50 MG Q4H PRN PRN PO (DC) Insulin Human Regular (HumuLIN R) 100 UNIT ASDIR IV (CKD) Sodium Chloride (SODIUM CHLORIDE 0.9%) 99 ML Acetylcysteine (MUCOMYST FOR RT) 200 MG RTQ6H NE B Albuterol/Ipratropium (DUONEB) 3 ML RTQ6H NEB Bisacodyl (DULCOLAX) 10 MG ONCE PRN RECTAL Dopamine HCl/Dextrose (DOPamine 400MG/D5W 250ML) 250 ML ASDIR IV Milrinone Lactate/Dextrose (MILRINONE 20MG/D5W 1 00ML) 100 ML ASDIR IV ( CKD) Vasopressin (VASOSTRICT 20 Unit/NS 100ML) 100 ML ASDIR IV (CKD) Acetaminophen (TYLENOL) 650 MG Q4H PRN PRN RECTA L Calcium Chloride (CALCIUM CHLORIDE) 1 GM ASDIR P RN IV Dextrose/Water (DEXTROSE 10% IN WATER) 125 ML DIR PRN IV (CKD) Dextrose/Water (DEXTROSE 10% IN WATER) 250 ML DIR PRN IV (CKD) Glucagon (GLUCAGON) 1 MG ASDIR PRN IM Magnesium Sulfate (MAGNESIUM SULFATE 4GM/SWFI 10 0ML) 100 ML ASDIR PRN IV Magnesium Sulfate (MAGNESIUM SULFATE 2GM/SWFI 50 ML) 50 ML ASDIR PRN IV Magnesium Sulfate/Dextrose (MAGNESIUM SULFATE 1G M/D5W 100ML) 100 ML ASDIR PRN IV Nitroglycerin/Dextrose (NITROGLYCERIN 50,000MCG/ D5W 250ML) 250 ML ASDIR IV Norepinephrine Bitartrate (NOREPINEPHRINE 8 MG/N S 250 ML) 250 ML TITRATE IV Potassium Chloride (KCL 20MEQ/SWFI 100ML) 100 ML ASDIR PRN IV Sodium Bicarbonate (SODIUM BICARBONATE) 50 MEQ A SDIR PRN IV Ondansetron HCl (ZOFRAN) 4 MG Q6H PRN PRN IV Physical Exam General appearance: alert, awake, oriented Head/Eyes: atraumatic, normal conjunctiva/sclera , normal eyelids/periorb., normocephalic Neck: full range of motion, non-tender, no JVD Cardiovascular: normal heart sounds, regular rat e rhythm Respiratory: decreased breath sounds, clear to a uscultation Abdomen: non-tender, normal bowel sounds, soft, no distention Extremities: edema, moves all, no calf tendernes s 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, 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 Skin: dry, intact Results Findings/Data: Laboratory Tests 12/29 12/29 12/29 12/29 0536 0300 0200 0054 Blood Gas Puncture Site Art Line Art Line Art Line Art Li ne O2 Saturation (90 - 100 %) 95.5 95.7 92.8 94.0 ABG pH (7.35 - 7.45) 7.357 7.367 7.327 L 7.326 L ABG pCO2 (35.0 - 45 mmHg) 71.1 *H 73.2 *H 80.5 *H 81.2 *H ABG pO2 (80 - 100.0 mmHg) 83.8 84.4 73.3 L 78.4 L ABG PO2/FiO2 Ratio (mm/Hg) 209.50 211.00 183.25 196.00 ABG HCO3 (22.0 - 26.0 MMOL/L) 40.1 *H 42.4 *H 4 2.4 *H 42.8 *H ABG Total CO2 42.4 44.7 45.0 45.3 ABG Base Excess (-4.0 - 4.0 MMOL/L) 14.5 H 16.9 H 16.3 H 16.6 H ABG Hematocrit (33.0 - 45.0 %) 23 L 24 L 23 L 2 2 L ABG Hemoglobin (11.0 - 15.0 G/DL) 7.8 L 8.2 L 7 .9 L 7.5 L Martin Test N/A Sodium (134 - 147 MEQ/L) 144 143 144 143 Potassium (3.4 - 5.0 MEQ/L) 3.9 4.0 4.0 4.1 Chloride (100 - 108 MEQ/L) 101 99 L 99 L 98 L Ionized Calcium (1.12 - 1.32 MMOL/L) 1.34 H 1.3 4 H 1.35 H 1.34 H Lactic Acid (0.9 - 1.7 mmol/l) 0.5 L 0.5 L 0.5 L 0.7 L Temperature (F) 97.5 97.5 97.5 97.3 O2 Delivery Device BiPAP BiPAP BiPAP BiPAP FiO2 (%) 40 40 40 40 12/28 1630 1134 Blood Gas Puncture Site Art Line Art Line Art Line O2 Saturation (90 - 100 %) 94.1 94.3 96.7 ABG pH (7.35 - 7.45) 7.363 7.396 7.349 L ABG pCO2 (35.0 - 45 mmHg) 72.2 *H 65.9 *H 72.2 *H ABG pO2 (80 - 100.0 mmHg) 77.1 L 74.6 L 95.9 ABG PO2/FiO2 Ratio (mm/Hg) 239.75 ABG HCO3 (22.0 - 26.0 MMOL/L) 41.2 *H 40.6 *H 3 9.9 *H ABG Total CO2 43.4 42.7 42.2 ABG Base Excess (-4.0 - 4.0 MMOL/L) 15.7 H 15.7 H 14.2 H ABG Hematocrit (33.0 - 45.0 %) 24 L 25 L 24 L ABG Hemoglobin (11.0 - 15.0 G/DL) 8.2 L 8.5 L 8 .3 L Martin Test N/A Sodium (134 - 147 MEQ/L) 144 143 142 Potassium (3.4 - 5.0 MEQ/L) 3.5 3.6 3.8 Chloride (100 - 108 MEQ/L) 99 L 98 L 95 L Ionized Calcium (1.12 - 1.32 MMOL/L) 1.33 H 1. 35 H 1.27 Lactic Acid (0.9 - 1.7 mmol/l) 0.8 L 0.7 L 0.7 L Temperature (F) 98.1 98 98 O2 Delivery Device Cannula Cannula CPAP FiO2 (%) 40 Laboratory Tests 12/29 12/29 12/29 12/29 12/29 0817 0536 0536 0355 0355 Chemistry Sodium (134 - 147 mEq/L) 144 Potassium (3.4 - 5.0 mEq/L) 4.1 Chloride (100 - 108 mEq/L) 103 Carbon Dioxide (21 - 33 mEq/l) 38 H Anion Gap (0 - 20) 7 BUN (7 - 18 mg/dL) 40 H Creatinine (0.6 - 1.3 mg/dL) 1.0 POC Creatinine (0.6 - 1.0 mg/dL) 1.1 H Glomerular Filtr Rate (70 - 80) 53.6 L Glucose (70 - 110 mg/dL) 143 H POC Glucose (70 - 110 MG/DL) 150 H 126 H POC Glucose (mg/dL) (70 - 110 MG/DL) 122 H Calcium (8.0 - 10.5 mg/dL) 9.5 Magnesium (1.80 - 2.40 mg/dL) 2.29 12/29 12/29 12/29 12/29 12/29 0301 0300 0200 0054 0054 Chemistry POC Creatinine (0.6 - 1.0 mg/dL) 1.2 H 1.1 H 1. 2 H POC Glucose (70 - 110 MG/DL) 124 H 126 H POC Glucose (mg/dL) (70 - 110 MG/DL) 125 H 106 120 H 12/28 12/28 12/28 12/28 12/28 2359 2351 2332 2100 2055 Chemistry Sodium (134 - 147 mEq/L) 145 Potassium (3.4 - 5.0 mEq/L) 3.6 Chloride (100 - 108 mEq/L) 103 Carbon Dioxide (21 - 33 mEq/l) 39 H Anion Gap (0 - 20) 7 BUN (7 - 18 mg/dL) 42 H Creatinine (0.6 - 1.3 mg/dL) 1.0 POC Creatinine (0.6 - 1.0 mg/dL) 1.5 H Glomerular Filtr Rate (70 - 80) 53.6 L Glucose (70 - 110 mg/dL) 120 H POC Glucose (70 - 110 MG/DL) 120 H 43 L 37 L POC Glucose (mg/dL) (70 - 110 MG/DL) 104 Calcium (8.0 - 10.5 mg/dL) 9.7 12/28 1915 1808 1634 1630 Chemistry POC Creatinine (0.6 - 1.0 mg/dL) 1.2 H POC Glucose (70 - 110 MG/DL) 117 H 139 H 106 16 2 H POC Glucose (mg/dL) (70 - 110 MG/DL) 131 H 12/28 12/28 12/28 12/28 12/28 1448 1349 1251 1134 1134 Chemistry Sodium (134 - 147 mEq/L) 142 Potassium (3.4 - 5.0 mEq/L) 4.0 Chloride (100 - 108 mEq/L) 101 Carbon Dioxide (21 - 33 mEq/l) 38 H Anion Gap (0 - 20) 7 BUN (7 - 18 mg/dL) 38 H Creatinine (0.6 - 1.3 mg/dL) 1.0 POC Creatinine (0.6 - 1.0 mg/dL) 1.2 H Glomerular Filtr Rate (70 - 80) 53.6 L Glucose (70 - 110 mg/dL) 295 H POC Glucose (70 - 110 MG/DL) 225 H 212 H 227 H POC Glucose (mg/dL) (70 - 110 MG/DL) 303 H Calcium (8.0 - 10.5 mg/dL) 9.5 Laboratory Tests 12/29 0355 Hematology WBC (4.5 - 11.0 x10 3/uL) 9.0 RBC (3.54 - 5.02 x10 6/uL) 2.15 L Hgb (11.0 - 15.0 g/dL) 7.4 L Hct (33.0 - 45.0 %) 23.9 L MCV (81.0 - 99.0 fL) 111.2 H MCH (27.0 - 33.0 pg) 34.4 H MCHC (33.0 - 37.0 g/dL) 31.0 L RDW (11.5 - 14.5 %) 16.5 H Plt Count (150 - 400 x10 3/uL) 205 MPV (7.0 - 9.0 fL) 11.1 H Neut % (Auto) (56.0 - 77.0 %) 83.4 H Lymph % (Auto) (14.0 - 32.0 %) 4.5 L Barron % (Auto) (4.8 - 9.0 %) 8.8 Eos % (Auto) (0.3 - 3.7 %) 1.4 Baso % (Auto) (0.0 - 2.0 %) 0.1 Neut # (Auto) (2.0 - 7.6 x10 3/uL) 7.48 Lymph # (Auto) (1.0 - 3.8 x10 3/uL) 0.40 L Barron # (Auto) (0.1 - 0.8 x10 3/uL) 0.79 Eos # (Auto) (0.0 - 0.2 x10 3/uL) 0.13 Baso # (Auto) (0.0 - 0.2 x10 3/uL) 0.01 Abs Immat Gran (auto) (0.00 - 0.03 x10 3/uL) 0. 16 H Add Manual Diff NO Immature Gran % (0.0 - 2.0 %) 1.8 Nucleated RBC % (0 - 0 %) 0.7 H Nucleated RBCs # (Man) (0.0 - 0.1 x10 3/uL) 0.0 6 Treatment Prophylaxis Treatment Prophylaxis Drain(s)/tube(s): Drain(s)/tube(s): chest (x3) Diagnosis, Assessment Plan Consultants: cardiology, cardiovascular surgery Free Text DxA P Notes Free text DxA P notes: 76 years old female with PMH of macular degeneration, obesity, obstructive sleep apnea (CPAP at home), former smoker, hypertensio n, hyperlipidemia, diabetes, Crohn's disease, chronic atr ial fibrillation status post 3 ablations in the past (on Xarelto), pacemaker placement CAD -- multiple vesssels HTN DM HLD Crohn's disease chronic atrial fibrillation status post 3 ablati ons macular degeneration obesity obstructive sleep apnea acute respiratory failure --post surgery severe mitral valve regurgitation constrictive pericarditis CAD -- cardiology consult CV surgeon consult CABG -- AM ASA/lipitor afib -- rate control -- hold xarelto for surgery HTN-- continue home med DM-- on lantus -- sliding scale HLD-- on lipitor RONA--cpap as need DVTP -- heparin 12/18- feel sob -- CABG -- afternoon 12/19--post MVR (31 Magna valve), CABG x 1 (ROBERTS- LAD), ILAA and pericardectomy -- she remain intubated on the vent -- chest tube are in place -on levophed and epinephrine drip -- monitor in CCU 12/20- she was extubated --on bipap now -- NPO --off Levophed/epinephrine, continue vasopressi n, inotropes with milrinone, -- chest tube remain in place -- she is stable post surgery 12/21-- she is on high flow O2 -- edema --lasix --chest tube in place --- she is hemodynamic stable -- continue monitor in CCU 12/22- she remain on high O2 CXR show worsening pulmonary venous vascular co ngestion. --lasix iv tid -- chest tube are out -- off drips -- NPO -- start TPN -- continue monitor in CCU 12/23- she remain on high flow O2 --less edema -- on TPN -- she is hemodynamic stable -- continue monitor in CVICU 12/24- she get better -- she is out bed and sit on the chair -- start ambulate with PT -- continue current management 12/25- she is doing well with PT remain on o2 continue iv lasix / add diamox continue supportive care continue monitor in CVICU 12/26- she is on bipap -- she remain sob and edema -- may start lasix drip as nurse -- continue supportive care 12/27 On lasix and insulin drips. Back on lantus dose BID, trend glucose. Continue PT/OT. 12/28 Increase lantus BID. 12/29-- she remain on bipap -- sob and edema --lasiv and diamox iv bid -- FS -- better control -- continue monitor in CVICU Electronically Signed by Meryl Rosa MD on 2 at [address] [facility] #:[id number] END OF REPORT 2021-12-29 09:27:00-00:00 [facility] Cardiology Progress Note REPORT#:[id number] REPORT STATUS: Signed DATE:12/29/21 TIME: 926 PATIENT: SAÚL GILES UNIT #: [id number] ROOM/BED: [place] [address] : 43 AGE: 76 SEX: F ATTEND: eLah More MD ADM AUTHOR: Jillian Lane CHILD WATCH ATTENDANT * ALL edits or amendments must be made on the [employer] document * Subjective Chief complaint: on bipap sitting in chair Objective General VS/I O: Laboratory Tests 12/29/21 0355: [Embedded Image Not Available] 12/28/21 2100: [Embedded Image Not Available] 12/28/21 1134: [Embedded Image Not Available] 12/28/21 0340: [Embedded Image Not Available] 12/27/21 1600: [Embedded Image Not Available] 12/27/21 1430: [Embedded Image Not Available] Current Medications Sig/Fabby Start time Last Medication Dose Route Stop Time Status Admin Insulin Glargine 25 UNIT DAILY 12/30 0900 AC SUBQ 01/29 0859 Insulin Glargine 20 UNIT BEDTIME 12/29 2100 AC SUBQ 01/28 205 Amiodarone HCl 200 MG BID 12/29 0900 AC 12/29 PO 01/28 0859 0836 Furosemide 40 MG ONCE ONE 12/29 0630 DC 12/29 IV 12/29 0631 0630 Dextrose/Water 0 .STK-MED ONE 12/28 2334 DC IV Lorazepam 0.25 MG ONCE ONE 12/28 2315 DC 12/28 PO 12/28 2316 2318 Albumin Human 50 ML ONCE ONE 12/28 2200 DC IV 12/28 2249 2216 Potassium Chloride 40 MEQ ONCE ONE 12/28 2200 D C 12/28 PO 12/28 2201 2319 Insulin Glargine 30 UNIT BID 12/28 2100 DC 12/13 7 SUBQ 01/27 2059 0832 Albumin Human 50 ML ONCE ONE 12/28 1600 DC 10 6 IV 12/28 1649 1620 Furosemide 40 MG BID 9A 5P 12/28 0730 AC 12/29 IV 01/27 0729 0833 Acetazolamide 500 MG Q12HR 12/27 2100 AC 12/29 IV 01/03 2059 0832 Insulin Glargine 20 UNIT BID 12/27 2100 DC SUBQ 01/26 2059 0843 Sterile Water 5 ML ASDIR PRN 12/27 1130 AC IV 01/26 1129 Sterile Water 5 ML ASDIR PRN 12/27 0845 AC IV 01/26 0844 Sodium Chloride 4 ML RTBID 12/26 2200 AC 12/29 NEB 01/25 215 0817 Melatonin 3 MG BEDTIME 12/26 2100 AC 12/28 PO 01/25 2059 202 Sodium Chloride 10 ML BID 12/26 2100 AC 12/29 IV 01/25 2059 0836 Sodium Chloride 10 ML ASDIR PRN 12/26 1200 AC IV 01/25 1159 Pantoprazole 40 MG DAILY 12/25 09 AC 12/29 PO 01/24 0859 0833 Dexmedetomidine/ 250 ML ASDIR 12/24 2330 AC Sodium Chloride IV 01/23 2329 2343 Bisacodyl 10 MG DAILY PRN PRN 12/24 1545 AC RECTAL 01/23 1544 1645 Lactulose 20 GM DAILY PRN PRN 12/24 1330 AC PO 01/23 1329 1645 Magnesium Hydroxide 30 ML DAILY PRN PRN 12/24 1 330 AC 12/24 PO 01/23 1329 1646 Aspirin 81 MG DAILY 12/24 899 AC 12/29 PO 01/23 0859 0833 Clopidogrel Bisulfate 75 MG DAILY 12/24 899 AC 12/29 PO 01/23 0859 0833 Cyanocobalamin 500 MCG DAILY 12/24 899 AC 12/13 7 PO 01/23 0859 0836 Ferrous Sulfate 325 MG DAILY 12/24 899 AC 12/13 6 PO 01/23 0859 0840 Metolazone 5 MG DAILY 12/24 899 AC 12/28 PO 01/23 0859 1222 Polyethylene Glycol 17 GM DAILY 12/24 899 AC 1 PO 01/23 0859 0834 Atorvastatin Calcium 40 MG 2100 12/23 2100 AC 1 PO 01/22 Docusate Sodium 100 MG BID 12/23 2099 AC 12/29 PO 01/22 205 0832 Metoprolol Tartrate 12.5 MG Q12HR 12/23 2099 AC 12/29 PO 01/22 2059 0835 Senna 17.6 MG BEDTIME 12/23 2099 AC 12/23 PO 01/22 205 210 Amiodarone HCl 200 MG TID 12/23 1500 DC 12/28 PO 01/22 145 202 Acetaminophen 650 MG Q4H PRN PRN 12/23 1200 AC 12/24 PO 01/22 1147 1058 Tramadol HCl 25 MG Q4H PRN PRN 12/23 1200 DC PO 12/28 1154 Tramadol HCl 50 MG Q4H PRN PRN 12/23 1200 DC PO 12/28 1154 2104 Insulin Human Regular 100 UNIT ASDIR 12/23 1100 CKD 12/28 Sodium Chloride 99 ML IV 01/22 1059 1646 Acetylcysteine 200 MG RTQ6H 12/21 1530 AC 12/29 NEB 01/20 1529 0817 Albuterol/Ipratropium 3 ML RTQ6H 12/21 1530 AC 12/29 NEB 01/20 1529 0817 Bisacodyl 10 MG ONCE PRN 12/21 1200 AC 12/23 RECTAL 01/20 1159 1109 Dopamine HCl/Dextrose 250 ML ASDIR 12/20 0800 A C 12/20 IV 01/19 0759 0829 Milrinone Lactate/ 100 ML ASDIR 12/19 2029 CKD 12/20 Dextrose IV 01/18 2029 0441 Vasopressin 100 ML ASDIR 12/19 2029 CKD 12/20 IV 01/18 2029 204 Acetaminophen 650 MG Q4H PRN PRN 12/19 1115 AC RECTAL 01/18 1114 Calcium Chloride 1 GM ASDIR PRN 12/19 1115 AC IV 01/18 1114 Dextrose/Water 125 ML ASDIR PRN 12/19 1115 CKD IV 01/18 1114 Dextrose/Water 250 ML ASDIR PRN 12/19 1115 CKD IV 01/18 1114 Glucagon 1 MG ASDIR PRN 12/19 1115 AC IM 01/18 1114 Magnesium Sulfate 100 ML ASDIR PRN 12/19 1115 A C IV 01/18 1114 Magnesium Sulfate 50 ML ASDIR PRN 12/19 1115 AC IV 01/18 1114 Magnesium Sulfate/ 100 ML ASDIR PRN 12/19 1115 AC 12/29 Dextrose IV 01/18 1114 0630 Nitroglycerin/ 250 ML ASDIR 12/19 1115 AC Dextrose IV 01/18 1114 Norepinephrine 250 ML TITRATE 12/19 1115 AC Bitartrate IV 01/18 1114 Potassium Chloride 100 ML ASDIR PRN 12/19 1115 AC 12/28 IV 01/18 1114 2216 Sodium Bicarbonate 50 MEQ ASDIR PRN 12/19 1115 AC IV 01/18 1114 Ondansetron HCl 4 MG Q6H PRN PRN 12/18 1145 AC 12/25 IV 01/17 1144 0326 24 hour I O ending at 0700: 12/29 0700 12/28 1900 Intake Total 275.00 1437.90 Output Total 640 1135 Balance -365.00 302.90 Intake, IV 275.00 137.90 Intake, Oral 580 Intake, Oral 720 Supplement Output, Urine 640 1135 Patient 123.2 kg Weight Weight Standing scale Measurement Method Vital Signs: Date Time Temp Pulse Resp B/P B/P Pulse O2 O2 F low FiO2 Mean Ox Delivery Rate 12/29 0945 36.1 75 23 135/38 63 100 10/ 0930 36.1 75 29 154/41 71 99 / 0915 36.1 76 36 151/41 69 95 10/17 0900 36.1 75 27 151/37 65 88 / 0845 36.1 72 26 149/40 70 94 /17 0830 36.1 75 28 148/41 71 93 /17 0815 36.1 72 24 151/42 72 97 10/ 0815 98 High flow 10 60 nasal cannula 12/29 0800 36.2 72 14 132/36 60 100 / 0745 36.2 71 16 142/39 65 100 / 0730 36.2 75 13 147/40 67 100 /17 0715 36.2 72 28 159/44 75 99 /17 0700 36.3 72 26 172/48 81 100 /17 0645 36.3 72 25 176/48 83 99 /17 0630 36.4 73 22 173/48 81 100 /17 0615 36.4 69 24 184/53 88 100 10/17 0600 76 48 100 /17 0545 36.3 70 26 100 /17 0530 36.4 70 25 100 /17 0515 36.4 69 24 156/58 91 99 /17 0500 36.4 69 24 106/35 54 100 /17 0445 36.4 69 21 117/38 59 100 /17 0430 36.4 69 24 126/40 63 99 10/17 0430 89 100 40 10/17 0415 36.4 69 17 120/39 61 98 /17 0400 36.4 69 23 138/45 72 100 10/17 0345 36.4 69 25 130/46 71 99 /17 0330 36.4 69 24 137/132 134 100 /17 0315 36.3 69 23 142/47 76 100 /17 0300 36.4 69 23 160/57 90 99 10/17 0245 36.4 73 28 160/61 96 98 12/29 0230 36.3 71 26 156/52 85 96 12/29 0215 36.4 71 30 168/61 97 96 / 0213 71 100 40 12/29 0200 36.4 44 22 152/53 86 96 / 0145 36.4 73 26 125/46 70 98 / 0130 36.3 75 25 114/43 63 100 12/29 0115 36.3 75 26 111/43 63 98 / 0100 36.3 75 25 112/43 64 98 / 0045 36.3 73 16 114/43 64 98 /17 0040 70 99 40 / 0030 36.3 72 16 121/45 67 97 12/29 0015 36.3 75 16 122/47 69 98 12/29 0000 36.3 76 18 118/46 67 98 12/28 2345 36.4 76 26 162/58 92 93 12/28 2330 36.5 71 24 143/51 79 95 12/28 2315 36.6 75 23 150/52 82 93 12/28 2300 36.6 73 35 158/51 86 85 12/28 2245 36.7 70 35 151/52 85 96 12/28 2230 36.8 75 34 143/53 84 95 12/28 2215 36.5 73 33 144/52 80 99 12/28 2200 36.7 69 23 133/43 67 100 12/28 2145 36.7 69 27 122/32 57 100 12/28 2130 36.6 69 21 148/38 66 97 12/28 2115 36.7 69 34 136/35 61 97 12/28 2100 36.5 75 34 142/37 65 98 12/28 204 36.7 73 43 150/41 72 98 12/28 2042 98 High flow 7 nasal cannula 12/28 2029 36.6 75 50 158/47 80 95 12/28 2014 36.8 72 48 156/42 74 93 12/29 1999 BiPAP 40 12/29 1999 36.7 74 28 155/45 77 96 12/28 194 36.8 72 44 157/43 75 91 12/28 1930 36.8 70 24 163/43 77 98 12/28 191 36.8 72 36 151/98 108 91 12/28 1900 36.9 72 29 162/49 80 99 10/16 1812 37.0 69 20 143/40 65 100 /16 1800 37.0 71 28 144/42 68 99 /16 1745 37.0 71 39 168/53 84 95 /16 1730 37.0 72 29 152/45 75 94 /16 1715 37.1 74 38 142/43 71 98 10/16 1701 146/65 94 /16 1701 37.1 74 35 141/42 70 94 /16 1700 37.1 72 28 143/42 71 94 /16 1645 37.1 72 28 142/39 67 95 /16 1615 37.1 73 22 131/38 63 96 /16 1601 141/61 88 /16 1601 37.1 69 23 131/36 61 100 /16 1600 37.1 69 30 133/36 62 99 /16 1545 37.1 75 29 135/37 65 98 /16 1530 37.1 75 20 130/36 61 100 /16 1515 37.0 75 26 129/35 60 97 /16 1500 140/73 93 /16 1500 37.0 69 25 139/35 62 96 /16 1445 37.0 74 29 149/38 68 93 /16 1430 37.1 71 28 154/41 70 97 /16 1424 146/65 94 /16 1424 94 High flow 7 nasal cannula /16 1424 37.1 69 27 159/39 70 95 /16 1415 37.0 72 27 146/46 76 98 /16 1400 37.0 70 28 147/46 74 99 16 1345 36.9 74 17 123/38 60 100 10/16 1330 36.9 75 19 141/45 70 98 10/16 1315 36.8 72 20 148/45 74 99 10/16 1300 36.9 74 22 145/46 73 100 10/16 1245 37.0 72 26 159/57 86 96 10/16 1230 37.1 69 24 153/56 84 99 10/16 1227 37.1 70 27 152/56 83 100 10/16 1215 37.0 75 17 134/46 72 99 10/16 1204 37.0 75 15 112/32 54 100 10/16 1200 37.0 75 17 117/32 56 100 10/16 1145 37.0 85 19 130/37 67 100 12/28 1142 71 100 40 12/28 1142 100 BiPAP 40 12/28 1130 37.0 70 23 128/39 66 100 12/28 1115 36.9 75 25 128/42 70 100 12/28 1100 36.9 72 19 121/37 61 100 12/28 1045 37.1 74 18 122/38 61 100 PATIENT WEIGHT: Weight (lb): 271 Weight (oz): 9.75 Weight (kg): 123.200 Status post: CABG, MVR, and ILAA Physical Exam General appearance: chronically ill appearing, r espiratory support ENT: moist mucosal membranes Neck: no JVD Cardiovascular: CV assessment: regular rate and rhythm Respiratory: decreased breath sounds, on oxygen Abdomen: obese Genitourinary: no flank pain, no urinary cathete r Upper extremity: UE assessment: normal temperature, no edema Lower extremity: LE assessment: edema 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, 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 Skin: dry, intact Psychiatry: normal affect, normal mood Results Radiology data: Recent Impressions: RADIOLOGY - XR CHEST 1 V 12/29 616 Report Impression - Status: SIGNED Entered: 12/29/2021 0702 IMPRESSION: 1. The intracardiac pacer leads are grossly unch anged. 2. There is no significant interval change in ge neralized right pulmonary opacification. 3. There is mild improved aeration of both lung bases. 4. No pneumothorax is visible. Impression By: [email or web address] - Bill Kern M.D. Diagnosis, Assessment Plan Free Text DxA P Notes Free Text DxA P Notes: Ms Glies is a 76 y/o Femal w / PMHx: CAD, HLD, T2DM, RONA (CPAP at home), smoker, Crohn's disease, AF s/p ablation (on Xarelto), s /p PPM and lymphedema. Dr. Fortune is consulted for CAD s/p CABG, MVR. - CAD s/p CABG, MVR, and ILAA. post-op per CTS and critical care On Plavix, aspirin, beta-delma, statin volume management per Nephrology rotating bipap with high flow NC as tolerated - Chr AF s/p PPM/ablation. Rate controlled, pace d rhythm. had ILAA during bypass - HTN. BP stable - HLD. On statins. - Crohn's disease. Per IM. -MARCELLO - resolving per Nephrology -Resp insufficiency on BIPAP/high flow NC as tolerated per critical care -Diastolic CHF/volume overload diuretic management per nephrology/CTS continue supportive care PT/OT as tolerated Electronically Signed by Jillian Lane NP on 1 at 1036 Electronically Signed by Aruna Fortune MD on at 1436 RPT #:[id number] END OF REPORT 2021-12-29 08:18:00-00:00 [facility] ([facility]) Critical Care Progress Note REPORT#:[id number] REPORT STATUS: Signed DATE:12/29/21 TIME: 817 PATIENT: SAÚL GILES UNIT #: [id number] ROOM/BED: [place] [id number] : 43 AGE: 76 SEX: F ATTEND: Leah More MD ADM AUTHOR: Solange Mohamud MD * ALL edits or amendments must be made on the [employer]/computer document * Subjective Chief complaint: CABG/MVR HPI: 76-year-old morbidly obese f emale with history of HTN, HL, IDDM, smoking, RONA on CPAP and home O2 as needed, macular degeneration , Crohn's disease on immunosuppressant medication s, and chronic Afib s/p ablation and PPM (on Xarelto ), who was admitted recently with heart failure symptoms. Patient underwent elective cardiac cath that s howed severe multivessel coronary artery disease not suitable for percutaneous intervention. 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 She went for surgical revascularization today and preop JORDEN revealed severe mitral regurgitation. After discussing new findings with family, patient underwent MVR (31 M agna valve), CABG x 1 (ROBERTS-LAD), ILAA and pericardectomy on 12/19/2021. Has EF of 45%. Crystalloid 1 L, urine output 700, Cell Saver 700. She is a-paced at [facility]. Surgery went well and patient was transferred to CVICU pos top in a stable surgical condition. She is currently intubated on 2 mics of epine phrine, 2 mics of Levophed and insulin drip. CI 3.0, SvO2 in 60%s, CVP 15 and PAP in 60s. Comments: No new events last night Decreasing oxygen requirement Continue to require BiPAP on and off Improving urine output with diuresis Lower blood sugar levels Still with prolonged QTC Afebrile Review of Systems Free Text ROS Notes Free Text ROS Notes: Due to patient condition, the patient is unable to provide subjective data and therefore a comprehensive review of systems was not completed. All data and labs were reviewed and discussed wi allen RN. Objective General VS/I O Last Documented: Result Date Time Pulse Ox 100 12/29 163 FiO2 40 12/29 163 Pulse 75 12/29 1636 B/P 135/38 12/29 0945 B/P Mean 63 12/29 944 Temp 36.1 12/29 0845 Resp 23 12/29 0945 O2 Delivery High flow nasal cannula 12/29 0815 O2 Flow Rate 10 12/29 0815 24 hour I O ending at 0700: 12/29 0700 12/28 1900 Intake Total 275.00 1437.90 Output Total 640 1135 Balance -365.00 302.90 Intake, IV 275.00 137.90 Intake, Oral 580 Intake, Oral 720 Supplement Output, Urine 640 1135 Patient 123.2 kg Weight Weight Standing scale Measurement Method PATIENT WEIGHT: Weight (lb): 271 Weight (oz): 9.75 Weight (kg): 123.200 Medications: Active Meds + DC'd Last 24 Hrs Furosemide (LASIX 40 mg/4 mL INJECTION) 40 MG ON CE ONE IV (DC) Dextrose/Water (DEXTROSE 50% W SYRINGE) 0 .STK-M ED ONE IV (DC) Lorazepam (ATIVAN) 0.25 MG ONCE ONE PO (DC) Albumin Human (ALBUMINAR-25%) 50 ML ONCE ONE IV (DC) Potassium Chloride (POTASSIUM CHLORIDE 20MEQ TAB .ER) 40 MEQ ONCE ONE PO (DC) Insulin Glargine (Lantus/Semglee) 30 UNIT BID [place] BQ Albumin Human (ALBUMINAR-25%) 50 ML ONCE ONE IV (DC) Furosemide (LASIX 40 mg/4 mL INJECTION) 40 MG BI D 9A 5P IV Acetazolamide (DIAMOX) 500 MG Q12HR IV Insulin Glargine (Lantus/Semglee) 20 UNIT BID [place] BQ (DC) Sterile Water (WATER FOR INJECTION) 5 ML ASDIR P RN IV Sterile Water (WATER FOR INJECTION) 5 ML ASDIR P RN IV Sodium Chloride (SODIUM CHLORIDE) 4 ML RTBID NEB Melatonin (Melatonin) 3 MG BEDTIME PO Sodium Chloride (SODIUM CHLORIDE) 10 ML BID IV Sodium Chloride (SODIUM CHLORIDE) 10 ML ASDIR NE N IV Pantoprazole (PROTONIX) 40 MG DAILY PO Dexmedetomidine/Sodium Chloride (PRECEDEX 1000MC G/NS 250ML) 250 ML ASDIR IV Bisacodyl (DULCOLAX) 10 MG DAILY PRN PRN RECTAL Lactulose (LACTULOSE) 20 GM DAILY PRN PRN PO Magnesium Hydroxide (MILK OF MAGNESIA) 30 ML PETER LY PRN PRN PO Aspirin (ASPIRIN) 81 MG DAILY PO Clopidogrel Bisulfate (Plavix) 75 MG DAILY PO Cyanocobalamin (Vitamin B-12 500 mcg tab) 500 MC G DAILY PO Ferrous Sulfate (FERROUS SULFATE) 325 MG DAILY P O Metolazone (metOLazone) 5 MG DAILY PO Polyethylene Glycol (MIRALAX) 17 GM DAILY PO Atorvastatin Calcium (LIPITOR) 40 MG 2100 PO Docusate Sodium (DOCUSATE SODIUM) 100 MG BID PO Metoprolol Tartrate (LOPRESSOR) 12.5 MG Q12HR PO Senna (SENOKOT) 17.6 MG BEDTIME PO Amiodarone HCl (CORDARONE) 200 MG TID PO Acetaminophen (TYLENOL) 650 MG Q4H PRN PRN PO Tramadol HCl (ULTRAM) 25 MG Q4H PRN PRN PO (DC) Tramadol HCl (ULTRAM) 50 MG Q4H PRN PRN PO (DC) Insulin Human Regular (HumuLIN R) 100 UNIT ASDIR IV (CKD) Sodium Chloride (SODIUM CHLORIDE 0.9%) 99 ML Acetylcysteine (MUCOMYST FOR RT) 200 MG RTQ6H NE B Albuterol/Ipratropium (DUONEB) 3 ML RTQ6H NEB Bisacodyl (DULCOLAX) 10 MG ONCE PRN RECTAL Dopamine HCl/Dextrose (DOPamine 400MG/D5W 250ML) 250 ML ASDIR IV Milrinone Lactate/Dextrose (MILRINONE 20MG/D5W 1 00ML) 100 ML ASDIR IV ( CKD) Vasopressin (VASOSTRICT 20 Unit/NS 100ML) 100 ML ASDIR IV (CKD) Acetaminophen (TYLENOL) 650 MG Q4H PRN PRN RECTA L Calcium Chloride (CALCIUM CHLORIDE) 1 GM ASDIR P RN IV Dextrose/Water (DEXTROSE 10% IN WATER) 125 ML DIR PRN IV (CKD) Dextrose/Water (DEXTROSE 10% IN WATER) 250 ML DIR PRN IV (CKD) Glucagon (GLUCAGON) 1 MG ASDIR PRN IM Magnesium Sulfate (MAGNESIUM SULFATE 4GM/SWFI 10 0ML) 100 ML ASDIR PRN IV Magnesium Sulfate (MAGNESIUM SULFATE 2GM/SWFI 50 ML) 50 ML ASDIR PRN IV Magnesium Sulfate/Dextrose (MAGNESIUM SULFATE 1G M/D5W 100ML) 100 ML ASDIR PRN IV Nitroglycerin/Dextrose (NITROGLYCERIN 50,000MCG/ D5W 250ML) 250 ML ASDIR IV Norepinephrine Bitartrate (NOREPINEPHRINE 8 MG/N S 250 ML) 250 ML TITRATE IV Potassium Chloride (KCL 20MEQ/SWFI 100ML) 100 ML ASDIR PRN IV Sodium Bicarbonate (SODIUM BICARBONATE) 50 MEQ A SDIR PRN IV Ondansetron HCl (ZOFRAN) 4 MG Q6H PRN PRN IV Results Findings/data: Laboratory Tests 12/29 12/29 12/29 12/29 0536 0300 0200 0054 Blood Gas Puncture Site Art Line Art Line Art Line Art L ine O2 Saturation (90 - 100 %) 95.5 95.7 92.8 94.0 ABG pH (7.35 - 7.45) 7.357 7.367 7.327 L 7.326 L ABG pCO2 (35.0 - 45 mmHg) 71.1 *H 73.2 *H 80.5 *H 81.2 *H ABG pO2 (80 - 100.0 mmHg) 83.8 84.4 73.3 L 78.4 L ABG PO2/FiO2 Ratio (mm/Hg) 209.50 211.00 183.2 5 196.00 ABG HCO3 (22.0 - 26.0 MMOL/L) 40.1 *H 42.4 *H 4 2.4 *H 42.8 *H ABG Total CO2 42.4 44.7 45.0 45.3 ABG Base Excess (-4.0 - 4.0 MMOL/L) 14.5 H 16.9 H 16.3 H 16.6 H ABG Hematocrit (33.0 - 45.0 %) 23 L 24 L 23 L 2 2 L ABG Hemoglobin (11.0 - 15.0 G/DL) 7.8 L 8.2 L 7 .9 L 7.5 L Martin Test N/A Sodium (134 - 147 MEQ/L) 144 143 144 143 Potassium (3.4 - 5.0 MEQ/L) 3.9 4.0 4.0 4.1 Chloride (100 - 108 MEQ/L) 101 99 L 99 L 98 L Ionized Calcium (1.12 - 1.32 MMOL/L) 1.34 H 1.3 4 H 1.35 H 1.34 H Lactic Acid (0.9 - 1.7 mmol/l) 0.5 L 0.5 L 0.5 L 0.7 L Temperature (F) 97.5 97.5 97.5 97.3 O2 Delivery Device BiPAP BiPAP BiPAP BiPAP FiO2 (%) 40 40 40 40 12/28 1630 1134 Blood Gas Puncture Site Art Line Art Line Art Line O2 Saturation (90 - 100 %) 94.1 94.3 96.7 ABG pH (7.35 - 7.45) 7.363 7.396 7.349 L ABG pCO2 (35.0 - 45 mmHg) 72.2 *H 65.9 *H 72.2 *H ABG pO2 (80 - 100.0 mmHg) 77.1 L 74.6 L 95.9 ABG PO2/FiO2 Ratio (mm/Hg) 239.75 ABG HCO3 (22.0 - 26.0 MMOL/L) 41.2 *H 40.6 *H 3 9.9 *H ABG Total CO2 43.4 42.7 42.2 ABG Base Excess (-4.0 - 4.0 MMOL/L) 15.7 H 15.7 H 14.2 H ABG Hematocrit (33.0 - 45.0 %) 24 L 25 L 24 L ABG Hemoglobin (11.0 - 15.0 G/DL) 8.2 L 8.5 L 8 .3 L Martin Test N/A Sodium (134 - 147 MEQ/L) 144 143 142 Potassium (3.4 - 5.0 MEQ/L) 3.5 3.6 3.8 Chloride (100 - 108 MEQ/L) 99 L 98 L 95 L Ionized Calcium (1.12 - 1.32 MMOL/L) 1.33 H 1.3 5 H 1.27 Lactic Acid (0.9 - 1.7 mmol/l) 0.8 L 0.7 L 0.7 L Temperature (F) 98.1 98 98 O2 Delivery Device Cannula Cannula CPAP FiO2 (%) 40 Laboratory Tests 12/29 12/29 12/29 12/29 12/29 0536 0536 0355 0355 0301 Chemistry Sodium (134 - 147 mEq/L) 144 Potassium (3.4 - 5.0 mEq/L) 4.1 Chloride (100 - 108 mEq/L) 103 Carbon Dioxide (21 - 33 mEq/l) 38 H Anion Gap (0 - 20) 7 BUN (7 - 18 mg/dL) 40 H Creatinine (0.6 - 1.3 mg/dL) 1.0 POC Creatinine (0.6 - 1.0 mg/dL) 1.1 H Glomerular Filtr Rate (70 - 80) 53.6 L Glucose (70 - 110 mg/dL) 143 H POC Glucose (70 - 110 MG/DL) 126 H 124 H POC Glucose (mg/dL) (70 - 110 MG/DL) 122 H Calcium (8.0 - 10.5 mg/dL) 9.5 Magnesium (1.80 - 2.40 mg/dL) 2.29 12/29 12/29 12/29 12/29 12/28 0300 0200 0054 0054 2359 Chemistry POC Creatinine (0.6 - 1.0 mg/dL) 1.2 H 1.1 H 1. 2 H POC Glucose (70 - 110 MG/DL) 126 H 120 H POC Glucose (mg/dL) (70 - 110 MG/DL) 125 H 106 120 H 12/28 12/28 12/28 12/28 12/28 2351 2332 2100 6 2055 Chemistry Sodium (134 - 147 mEq/L) 145 Potassium (3.4 - 5.0 mEq/L) 3.6 Chloride (100 - 108 mEq/L) 103 Carbon Dioxide (21 - 33 mEq/l) 39 H Anion Gap (0 - 20) 7 BUN (7 - 18 mg/dL) 42 H Creatinine (0.6 - 1.3 mg/dL) 1.0 POC Creatinine (0.6 - 1.0 mg/dL) 1.5 H Glomerular Filtr Rate (70 - 80) 53.6 L Glucose (70 - 110 mg/dL) 120 H POC Glucose (70 - 110 MG/DL) 43 L 37 L 117 H POC Glucose (mg/dL) (70 - 110 MG/DL) 104 Calcium (8.0 - 10.5 mg/dL) 9.7 12/28 12/28 12/28 12/28 12/28 1915 1808 1634 1630 1448 Chemistry POC Creatinine (0.6 - 1.0 mg/dL) 1.2 H POC Glucose (70 - 110 MG/DL) 139 H 106 162 H 22 5 H POC Glucose (mg/dL) (70 - 110 MG/DL) 131 H 12/28 12/28 12/28 12/28 12/28 1349 1251 1134 1134 1042 Chemistry Sodium (134 - 147 mEq/L) 142 Potassium (3.4 - 5.0 mEq/L) 4.0 Chloride (100 - 108 mEq/L) 101 Carbon Dioxide (21 - 33 mEq/l) 38 H Anion Gap (0 - 20) 7 BUN (7 - 18 mg/dL) 38 H Creatinine (0.6 - 1.3 mg/dL) 1.0 POC Creatinine (0.6 - 1.0 mg/dL) 1.2 H Glomerular Filtr Rate (70 - 80) 53.6 L Glucose (70 - 110 mg/dL) 295 H POC Glucose (70 - 110 MG/DL) 212 H 227 H 289 H POC Glucose (mg/dL) (70 - 110 MG/DL) 303 H Calcium (8.0 - 10.5 mg/dL) 9.5 Laboratory Tests 12/29 0355 Hematology WBC (4.5 - 11.0 x10 3/uL) 9.0 RBC (3.54 - 5.02 x10 6/uL) 2.15 L Hgb (11.0 - 15.0 g/dL) 7.4 L Hct (33.0 - 45.0 %) 23.9 L MCV (81.0 - 99.0 fL) 111.2 H MCH (27.0 - 33.0 pg) 34.4 H MCHC (33.0 - 37.0 g/dL) 31.0 L RDW (11.5 - 14.5 %) 16.5 H Plt Count (150 - 400 x10 3/uL) 205 MPV (7.0 - 9.0 fL) 11.1 H Neut % (Auto) (56.0 - 77.0 %) 83.4 H Lymph % (Auto) (14.0 - 32.0 %) 4.5 L Barron % (Auto) (4.8 - 9.0 %) 8.8 Eos % (Auto) (0.3 - 3.7 %) 1.4 Baso % (Auto) (0.0 - 2.0 %) 0.1 Neut # (Auto) (2.0 - 7.6 x10 3/uL) 7.48 Lymph # (Auto) (1.0 - 3.8 x10 3/uL) 0.40 L Barron # (Auto) (0.1 - 0.8 x10 3/uL) 0.79 Eos # (Auto) (0.0 - 0.2 x10 3/uL) 0.13 Baso # (Auto) (0.0 - 0.2 x10 3/uL) 0.01 Abs Immat Gran (auto) (0.00 - 0.03 x10 3/uL) 0. 16 H Add Manual Diff NO Immature Gran % (0.0 - 2.0 %) 1.8 Nucleated RBC % (0 - 0 %) 0.7 H Nucleated RBCs # (Man) (0.0 - 0.1 x10 3/uL) 0.0 6 Laboratory Tests 12/29/21 0355: [Embedded Image Not Available] 12/28/21 2100: [Embedded Image Not Available] 12/28/21 1134: [Embedded Image Not Available] Radiology data Recent Impressions: RADIOLOGY - XR CHEST 1 V 12/29 0617 Report Impression - Status: SIGNED Entered: 12/29/2021 0702 IMPRESSION: 1. The intracardiac pacer leads are grossly unch anged. 2. There is no significant interval change in ge neralized right pulmonary opacification. 3. There is mild improved aeration of both lung bases. 4. No pneumothorax is visible. Impression By: [email or web address] - Bill Kern M.D. Free Text Obj Notes Free Text Obj Notes: General appearance: elderly female in no acute d istress, interactive HEENT: atraumatic, normocephalic, moist mucosal membranes Neck: full range of motion, supple/no meningismu s Cardiovascular: S1S2 regular rate and rhythm, a- paced Respiratory: symmetric expansion, no acute respi ratory distress Abdomen: soft, obese, non-tender, no distention, no guarding Genitourinary: [place] with clear urine Extremities: pedal pulses palpable, moves all, n o clubbing, no cyanosis, LE edema 1+ bilateral Musculoskeletal: normal inspection, no muscle sp asm 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:Awake but lethargic, easily arousable, , CNII-XII grossly intact, no motor deficits Skin: dry, intact and clean surgery dressing Treatment Prophylaxis Treatment Prophylaxis Drain(s)/tube(s): Drain(s)/tube(s): chest (x3) Diagnosis, Assessment Plan Problem list/A P: 1. S/P MVR (mitral valve replacement) 2. S/P CABG x 1 3. Postoperative pulmonary dysfunction after ca rdiac surgery 4. Severe mitral regurgitation 5. CAD (coronary artery disease) 6. CKD (chronic kidney disease) 7. Immunosuppressed status 8. RONA on CPAP 9. Chronic a-fib 10. Crohn disease Free text A P: 76-year-old morbidly obese f emale with history of HTN, HL, IDDM, smoking, RONA on CPAP and home O2 as needed, macular degeneration , Crohn's disease on immunosuppressant medication s, and chronic Afib s/p ablation and PPM (on Xarelto ), who was admitted recently with heart failure symptoms. Patient underwent elective cardiac cath that s howed severe multivessel coronary artery disease not suitable for percutaneous intervention. 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 She went for surgical revascularization today and preop JORDEN revealed severe mitral regurgitation. After discussing new findings with family, patient underwent MVR (31 M agna valve), CABG x 1 (ROBERTS-LAD), ILAA and pericardectomy on 12/19/2021. Has EF of 45%. Crystalloid 1 L, urine output 700, Cell Saver 700. She is a-paced at [employer]. Surgery went well and patient was transferred to CVICU pos top in a stable surgical condition. She is currently intubated on 2 mics of epine phrine, 2 mics of Levophed and insulin drip. CI 3.0, SvO2 in 60%s, CVP 15 and PAP in 60s. Remains neuro intact, multimodal pain control, a void opiates Patient is on BiPAP at night for underlying RONA home CPAP as needed 14-18. She is on nasal cannula [address] shows worsening pulmonary edema and a telectasis. Also has pleural effusions ultrasound not a big pocket to safely tap. Duo nebs and Mucomyst. Encourage incentive laz metry. Family at bedside during spirometry with her. Patient is being diuresed with Lasix twice daily and Diamox twice daily. She does have respiratory acidos is with metabolic alkalosis which is balanced with a pH of 7.39. Renal following White count is stable. No signs of infection or fever. Continue to monitor. Hemoglobin is stable. Continue beta-delma and amiodarone. Paced rhyt hm Patient is on insulin drip for control of her quintana gars. Increase Lantus to 30 twice daily. Patient still has [place] for accurate ins and out s Total critical care time 40 minutes 12/29 Waxing and waning mental status, continue melato andrzej at bedtime Continue supplemental oxygen and titrate FiO2 to keep saturation more than 90%, on 6 L nasal cannula, alternating with BiPAP 18/ 7 and 30% Continue follow ABGs and chest x-rays Inhaled bronchodilators as needed Encourage incentive spirometry White count is stable. No signs of infection or fever. Continue to monitor. Hemoglobin is stable. Continue beta-delma and amiodarone. Diuresis with Bumex 500 mg every 12 hours. Recei laury 1 dose of Lasix IV x1 earlier in the morning Monitor kidney function and trend creatinine Monitor and replete electrolytes Strict I O's Cardiac diet with bowel regimen Decreased Lantus insulin to 20 5 in the morning and 20 at night Continue monitoring blood glucose VTE prophylaxis Stress ulcer prophylaxis Discussed with ICU team, CV surgery and daughter Critical care time 39 minutes Consultants: cardiology, cardiovascular surgery at [id number] RPT #:[id number] END OF REPORT 2021-12-28 17:02:00-00:00 [facility] ([facility]) Critical Care Progress Note REPORT#:[id number] REPORT STATUS: Signed DATE:12/28/21 TIME: 1702 PATIENT: SAÚL GILES UNIT #: [id number] ROOM/BED: [place] [address] : 43 AGE: 76 SEX: F ATTEND: Leah More MD ADM AUTHOR: Ricky Goodwin MD * ALL edits or amendments must be made on the [facility]/computer document * Subjective Chief complaint: CABG/MVR HPI: 76-year-old morbidly obese f emale with history of HTN, HL, IDDM, smoking, RONA on CPAP and home O2 as needed, macular degeneration , Crohn's disease on immunosuppressant medication s, and chronic Afib s/p ablation and PPM (on Xarelto ), who was admitted recently with heart failure symptoms. Patient underwent elective cardiac cath that s howed severe multivessel coronary artery disease not suitable for percutaneous intervention. 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 She went for surgical revascularization today and preop JORDEN revealed severe mitral regurgitation. After discussing new findings with family, patient underwent MVR (31 M agna valve), CABG x 1 (ROBERTS-LAD), ILAA and pericardectomy on 12/19/2021. Has EF of 45%. Crystalloid 1 L, urine output 700, Cell Saver 700. She is a-paced at [facility] [employer]. Surgery went well and patient was transferred to CVICU pos top in a stable surgical condition. She is currently intubated on 2 mics of epine phrine, 2 mics of Levophed and insulin drip. CI 3.0, SvO2 in 60%s, CVP 15 and PAP in 60s. Comments: Interval history- And was on the BiPAP but she did not want to wear it at night most of the time. Was intermittently on nasal cannula about 7 L. Chest x-ray shows worsening bilateral infiltrate s and pulmonary edema Objective General VS/I O Last Documented: Result Date Time Pulse Ox 97 12/28 151 B/P 129/35 12/28 151 B/P Mean 60 12/28 1515 Temp 37.0 12/28 151 Pulse 75 12/28 1515 Resp 26 12/28 151 O2 Delivery High flow nasal cannula 12/28 1424 O2 Flow Rate 7 12/28 1424 FiO2 40 12/28 1142 24 hour I O ending at 0700: 12/28 0700 12/27 1900 Intake Total 1289.10 Output Total 1105 1690 Balance -1105 -400.90 Intake, IV 89.10 Intake, Oral 720 Intake, Oral 480 Supplement Number 3 Bowel Movements Output, Urine 1105 1690 Patient 120.7 kg Weight Weight Bed scale Measurement Method PATIENT WEIGHT: Weight (lb): 266 Weight (oz): 1.57 Weight (kg): 120.700 Medications: Active Meds + DC'd Last 24 Hrs Insulin Glargine (Lantus/Semglee) 30 UNIT BID [place] BQ Albumin Human (ALBUMINAR-25%) 50 ML ONCE ONE IV (DC) Furosemide (LASIX 40 mg/4 mL INJECTION) 40 MG Q2 4H IV (CAN) Furosemide (LASIX 40 mg/4 mL INJECTION) 40 MG BI D 9A 5P IV Acetazolamide (DIAMOX) 500 MG Q12HR IV Insulin Glargine (Lantus/Semglee) 20 UNIT BID [place] BQ (DC) Potassium Chloride (POTASSIUM CHLORIDE 20MEQ TAB .ER) 40 MEQ ONCE ONE PO (DC) Sterile Water (WATER FOR INJECTION) 5 ML ASDIR P RN IV Sterile Water (WATER FOR INJECTION) 5 ML ASDIR P RN IV Sodium Chloride (SODIUM CHLORIDE) 4 ML RTBID NEB Melatonin (Melatonin) 3 MG BEDTIME PO Sodium Chloride (SODIUM CHLORIDE) 10 ML BID IV Sodium Chloride (SODIUM CHLORIDE) 10 ML ASDIR NE N IV Pantoprazole (PROTONIX) 40 MG DAILY PO Dexmedetomidine/Sodium Chloride (PRECEDEX 1000MC G/NS 250ML) 250 ML ASDIR IV Bisacodyl (DULCOLAX) 10 MG DAILY PRN PRN RECTAL Lactulose (LACTULOSE) 20 GM DAILY PRN PRN PO Magnesium Hydroxide (MILK OF MAGNESIA) 30 ML PETER LY PRN PRN PO Aspirin (ASPIRIN) 81 MG DAILY PO Clopidogrel Bisulfate (Plavix) 75 MG DAILY PO Cyanocobalamin (Vitamin B-12 500 mcg tab) 500 MC G DAILY PO Ferrous Sulfate (FERROUS SULFATE) 325 MG DAILY P O Metolazone (metOLazone) 5 MG DAILY PO Polyethylene Glycol (MIRALAX) 17 GM DAILY PO Atorvastatin Calcium (LIPITOR) 40 MG 2100 PO Docusate Sodium (DOCUSATE SODIUM) 100 MG BID PO Metoprolol Tartrate (LOPRESSOR) 12.5 MG Q12HR PO Senna (SENOKOT) 17.6 MG BEDTIME PO Amiodarone HCl (CORDARONE) 200 MG TID PO Acetaminophen (TYLENOL) 650 MG Q4H PRN PRN PO Tramadol HCl (ULTRAM) 25 MG Q4H PRN PRN PO (DC) Tramadol HCl (ULTRAM) 50 MG Q4H PRN PRN PO (DC) Insulin Human Regular (HumuLIN R) 100 UNIT ASDIR IV (CKD) Sodium Chloride (SODIUM CHLORIDE 0.9%) 99 ML Acetylcysteine (MUCOMYST FOR RT) 200 MG RTQ6H NE B Albuterol/Ipratropium (DUONEB) 3 ML RTQ6H NEB Bisacodyl (DULCOLAX) 10 MG ONCE PRN RECTAL Dopamine HCl/Dextrose (DOPamine 400MG/D5W 250ML) 250 ML ASDIR IV Milrinone Lactate/Dextrose (MILRINONE 20MG/D5W 1 00ML) 100 ML ASDIR IV ( CKD) Vasopressin (VASOSTRICT 20 Unit/NS 100ML) 100 ML ASDIR IV (CKD) Acetaminophen (TYLENOL) 650 MG Q4H PRN PRN RECTA L Calcium Chloride (CALCIUM CHLORIDE) 1 GM ASDIR P RN IV Dextrose/Water (DEXTROSE 10% IN WATER) 125 ML DIR PRN IV (CKD) Dextrose/Water (DEXTROSE 10% IN WATER) 250 ML DIR PRN IV (CKD) Glucagon (GLUCAGON) 1 MG ASDIR PRN IM Magnesium Sulfate (MAGNESIUM SULFATE 4GM/SWFI 10 0ML) 100 ML ASDIR PRN IV Magnesium Sulfate (MAGNESIUM SULFATE 2GM/SWFI 50 ML) 50 ML ASDIR PRN IV Magnesium Sulfate/Dextrose (MAGNESIUM SULFATE 1G M/D5W 100ML) 100 ML ASDIR PRN IV Nitroglycerin/Dextrose (NITROGLYCERIN 50,000MCG/ D5W 250ML) 250 ML ASDIR IV Norepinephrine Bitartrate (NOREPINEPHRINE 8 MG/N S 250 ML) 250 ML TITRATE IV Potassium Chloride (KCL 20MEQ/SWFI 100ML) 100 ML ASDIR PRN IV Sodium Bicarbonate (SODIUM BICARBONATE) 50 MEQ A SDIR PRN IV Ondansetron HCl (ZOFRAN) 4 MG Q6H PRN PRN IV Results Findings/data: Laboratory Tests 12/28 12/28 12/28 12/27 8500 8169 6679 3444 Blood Gas Puncture Site Art Line Art Line Art Line Art L ine O2 Saturation (90 - 100 %) 94.3 96.7 89.7 L 95. 7 ABG pH (7.35 - 7.45) 7.396 7.349 L 7.408 7.378 ABG pCO2 (35.0 - 45 mmHg) 65.9 *H 72.2 *H 63.1 *H 71.2 *H ABG pO2 (80 - 100.0 mmHg) 74.6 L 95.9 58.6 L 86 .3 ABG PO2/FiO2 Ratio (mm/Hg) 239.75 ABG HCO3 (22.0 - 26.0 MMOL/L) 40.6 *H 39.9 *H 4 0.0 *H 41.9 *H ABG Total CO2 42.7 42.2 42.0 44.1 ABG Base Excess (-4.0 - 4.0 MMOL/L) 15.7 H 14.2 H 15.2 H 16.7 H ABG Hematocrit (33.0 - 45.0 %) 25 L 24 L 25 L 2 4 L ABG Hemoglobin (11.0 - 15.0 G/DL) 8.5 L 8.3 L 8.4 L 8.2 L Martin Test N/A Sodium (134 - 147 MEQ/L) 143 142 144 146 Potassium (3.4 - 5.0 MEQ/L) 3.6 3.8 3.7 3.8 Chloride (100 - 108 MEQ/L) 98 L 95 L 99 L 100 Ionized Calcium (1.12 - 1.32 MMOL/L) 1.35 H 1.2 7 1.32 1.25 Lactic Acid (0.9 - 1.7 mmol/l) 0.7 L 0.7 L 0.5 L 0.7 L Temperature (F) 98 98 97.7 98.6 O2 Delivery Device Cannula CPAP Cannula Cannula FiO2 (%) 40 Laboratory Tests 12/28 12/28 12/28 12/28 12/28 1634 1630 1448 1349 1251 Chemistry POC Creatinine (0.6 - 1.0 mg/dL) 1.2 H POC Glucose (70 - 110 MG/DL) 162 H 225 H 212 H 227 H POC Glucose (mg/dL) (70 - 110 MG/DL) 131 H 12/28 12/28 12/28 12/28 12/28 1134 1134 1042 0770 0790 Chemistry Sodium (134 - 147 mEq/L) 142 145 Potassium (3.4 - 5.0 mEq/L) 4.0 3.9 Chloride (100 - 108 mEq/L) 101 101 Carbon Dioxide (21 - 33 mEq/l) 38 H 40 H Anion Gap (0 - 20) 7 8 BUN (7 - 18 mg/dL) 38 H 43 H Creatinine (0.6 - 1.3 mg/dL) 1.0 1.0 POC Creatinine (0.6 - 1.0 mg/dL) 1.2 H Glomerular Filtr Rate (70 - 80) 53.6 L 53.6 L Glucose (70 - 110 mg/dL) 295 H 114 H POC Glucose (70 - 110 MG/DL) 289 H 107 POC Glucose (mg/dL) (70 - 110 MG/DL) 303 H Calcium (8.0 - 10.5 mg/dL) 9.5 10.0 Magnesium (1.80 - 2.40 mg/dL) 2.19 12/28 12/28 12/27 12/27 12/27 0339 0130 2306 2306 1903 Chemistry POC Creatinine (0.6 - 1.0 mg/dL) 1.0 1.2 H POC Glucose (70 - 110 MG/DL) 130 H 95 155 H POC Glucose (mg/dL) (70 - 110 MG/DL) 102 86 Laboratory Tests 12/28 0340 Hematology WBC (4.5 - 11.0 x10 3/uL) 8.1 RBC (3.54 - 5.02 x10 6/uL) 2.13 L Hgb (11.0 - 15.0 g/dL) 7.8 L Hct (33.0 - 45.0 %) 23.6 L MCV (81.0 - 99.0 fL) 110.8 H MCH (27.0 - 33.0 pg) 36.6 H MCHC (33.0 - 37.0 g/dL) 33.1 RDW (11.5 - 14.5 %) 16.2 H Plt Count (150 - 400 x10 3/uL) 212 MPV (7.0 - 9.0 fL) 10.9 H Neut % (Auto) (56.0 - 77.0 %) 80.6 H Lymph % (Auto) (14.0 - 32.0 %) 5.4 L Barron % (Auto) (4.8 - 9.0 %) 10.0 H Eos % (Auto) (0.3 - 3.7 %) 1.6 Baso % (Auto) (0.0 - 2.0 %) 0.1 Neut # (Auto) (2.0 - 7.6 x10 3/uL) 6.51 Lymph # (Auto) (1.0 - 3.8 x10 3/uL) 0.44 L Barron # (Auto) (0.1 - 0.8 x10 3/uL) 0.81 H Eos # (Auto) (0.0 - 0.2 x10 3/uL) 0.13 Baso # (Auto) (0.0 - 0.2 x10 3/uL) 0.01 Abs Immat Gran (auto) (0.00 - 0.03 x10 3/uL) 0. 19 H Add Manual Diff NO Immature Gran % (0.0 - 2.0 %) 2.3 H Nucleated RBC % (0 - 0 %) 0.9 H Nucleated RBCs # (Man) (0.0 - 0.1 x10 3/uL) 0.0 7 Laboratory Tests 12/28/21 1134: [Embedded Image Not Available] 12/28/21 0340: [Embedded Image Not Available] Radiology data Recent Impressions: RADIOLOGY - XR CHEST 1 V 12/28 0709 Report Impression - Status: SIGNED Entered: 12/28/2021 0836 IMPRESSION: 1. Moderate to severe enlarged cardiac silhouett e. 2. Severe alveolar pulmonary edema versus pneumo norberto. Progression. 3. Moderate bilateral pleural effusions. Impression By: [email or web address] - Leonard Escobar M.D. 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 S/P MVR (mitral valve replacement) 2. S/P CABG x 1 3. Postoperative pulmonary dysfunction after ca rdiac surgery 4. Severe mitral regurgitation 5. CAD (coronary artery disease) 6. CKD (chronic kidney disease) 7. Immunosuppressed status 8. RONA on CPAP 9. Chronic a-fib 10. Crohn disease Free text A P: 76-year-old morbidly obese f emale with history of HTN, HL, IDDM, smoking, RONA on CPAP and home O2 as needed, macular degeneration , Crohn's disease on immunosuppressant medication s, and chronic Afib s/p ablation and PPM (on Xarelto ), who was admitted recently with heart failure symptoms. Patient underwent elective cardiac cath that s howed severe multivessel coronary artery disease not suitable for percutaneous intervention. 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 She went for surgical revascularization today and preop JORDEN revealed severe mitral regurgitation. After discussing new findings with family, patient underwent MVR (31 M agna valve), CABG x 1 (ROBERTS-LAD), ILAA and pericardectomy on 12/19/2021. Has EF of 45%. Crystalloid 1 L, urine output 700, Cell Saver 700. [facility]. Surgery went well and patient was transferred to CVICU pos top in a stable surgical condition. She is currently intubated on 2 mics of epine phrine, 2 mics of Levophed and insulin drip. CI 3.0, SvO2 in 60%s, CVP 15 and PAP in 60s. Remains neuro intact, multimodal pain control, a void opiates Patient is on BiPAP at night for underlying RONA home CPAP as needed 14-18. She is on nasal cannula [address] shows worsening pulmonary edema and a telectasis. Also has pleural effusions ultrasound not a big pocket to safely tap. Duo nebs and Mucomyst. Encourage incentive laz metry. Family at bedside during spirometry with her. Patient is being diuresed with Lasix twice daily and Diamox twice daily. She does have respiratory acidos is with metabolic alkalosis which is balanced with a pH of 7.39. Renal following White count is stable. No signs of infection or fever. Continue to monitor. Hemoglobin is stable. Continue beta-delma and amiodarone. Paced rhyt hm Patient is on insulin drip for control of her quintana gars. Increase Lantus to 30 twice daily. Patient still has [place] for accurate ins and out s Total critical care time 40 minutes Consultants: cardiology, cardiovascular surgery Electronically Signed by Ricky Goodwin MD on 1 at 1716 RPT #:[id number] END OF REPORT 2021-12-28 14:33:00-00:00 [facility] ([facility]) Nephrology Progress Note REPORT#:[id number] REPORT STATUS: Signed DATE:12/28/21 TIME: 1433 PATIENT: SAÚL GILES UNIT #: [id number] ROOM/BED: [place] [id number] : 43 AGE: 76 SEX: F ATTEND: Leah More MD ADM AUTHOR: Suki Fuchs MD * ALL edits or amendments must be made on the [employer]/computer document * Subjective Chief complaint: chest pain HPI: This is a 76-year-old female who has past medica l history of hypertension, diabetes, coronary artery disease, atrial fibril lation who presented with worsening shortness of breath and on further wor k-up was 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 She was with normal kidney function prior to surgery and afte r her surgery she began to develop oliguria. Her procedure was done without any complications but after her surgery she did require pressor support for hypotension and she was intubated for respiratory acidosis and hypoxia a nd she was treated with vancomycin for infection treatment. When she was seen this morning she continued to have hypotension and her heart rate was paced by her permanent pacemaker and her urine outp ut was 20 to 30/h. Her family at bedside denied any history of kidney disease, kidney stone, chronic NSAID use or any urinary complaints. They also endorse that her b lood pressure and diabetes were mostly controlled. 12/28 Today she was eating in a chair and appeared com fortable. Objective General VS/I O: Vital Signs: Date Time Temp Pulse Resp B/P B/P Pulse O2 O2 F low FiO2 Mean Ox Delivery Rate 12/28 2042 98 High flow 7 nasal cannula 12/28 1812 37.0 69 20 143/40 65 100 12/28 1800 37.0 71 28 144/42 68 99 12/28 1745 37.0 71 39 168/53 84 95 12/28 1730 37.0 72 29 152/45 75 94 12/28 1715 37.1 74 38 142/43 71 98 12/28 1701 146/65 94 12/28 1701 37.1 74 35 141/42 70 94 12/28 1700 37.1 72 28 143/42 71 94 12/28 1645 37.1 72 28 142/39 67 95 12/28 1615 37.1 73 22 131/38 63 96 12/28 1601 141/61 88 12/28 1601 37.1 69 23 131/36 61 100 12/28 1600 37.1 69 30 133/36 62 99 12/28 1545 37.1 75 29 135/37 65 98 12/28 1530 37.1 75 20 130/36 61 100 12/28 1515 37.0 75 26 129/35 60 97 12/28 1500 140/73 93 12/28 1500 37.0 69 25 139/35 62 96 12/28 1445 37.0 74 29 149/38 68 93 12/28 1430 37.1 71 28 154/41 70 97 12/28 1424 146/65 94 12/28 1424 94 High flow 7 nasal cannula 12/28 1424 37.1 69 27 159/39 70 95 12/28 1415 37.0 72 27 146/46 76 98 12/28 1400 37.0 70 28 147/46 74 99 12/28 1345 36.9 74 17 123/38 60 100 12/28 1330 36.9 75 19 141/45 70 98 12/28 1315 36.8 72 20 148/45 74 99 12/28 1300 36.9 74 22 145/46 73 100 12/28 1245 37.0 72 26 159/57 86 96 12/28 1230 37.1 69 24 153/56 84 99 12/28 1227 37.1 70 27 152/56 83 100 10/16 1215 37.0 75 17 134/46 72 99 10/16 1204 37.0 75 15 112/32 54 100 10/16 1200 37.0 75 17 117/32 56 100 10/16 1145 37.0 85 19 130/37 67 100 10/16 1142 71 100 40 10/16 1142 100 BiPAP 40 10/16 1130 37.0 70 23 128/39 66 100 10/16 1115 36.9 75 25 128/42 70 100 10/16 1100 36.9 72 19 121/37 61 100 10/16 1045 37.1 74 18 122/38 61 100 10/16 0933 36.9 73 29 164/39 71 74 10/16 0930 36.9 72 28 155/44 76 98 10/16 0915 36.9 71 14 137/38 64 100 10/16 0900 36.9 74 21 136/40 67 99 10/16 0845 36.8 73 26 146/40 72 99 10/16 0831 98 High flow 6 nasal cannula 10/16 0830 36.8 75 28 142/39 68 98 10/16 0815 36.8 72 16 139/38 67 100 10/16 0800 Nasal 6 cannula 10/16 0800 36.7 72 22 133/40 70 90 10/16 0745 36.7 73 27 143/43 73 98 10/16 0730 36.6 73 21 142/49 79 99 10/16 0715 36.6 74 28 146/51 83 96 10/16 0700 36.6 73 22 156/56 89 100 10/16 0645 36.6 73 21 153/56 88 100 10/16 0630 36.6 73 28 147/57 86 100 10/16 0615 36.6 73 25 132/65 90 100 10/16 0600 36.6 73 27 135/53 81 100 10/16 0545 36.6 69 30 151/52 85 99 10/16 0530 36.5 73 33 137/61 91 94 10/16 0515 36.7 72 18 123/40 63 100 10/16 0506 71 100 40 10/16 0500 36.6 73 14 120/40 61 100 10/16 0445 36.7 72 18 134/44 69 99 10/16 0430 36.7 75 27 139/46 74 93 10/16 0415 74 33 134/134 134 10/16 0400 36.5 75 27 140/43 73 99 12/28 0345 36.5 73 37 132/44 74 85 12/28 0330 36.5 71 27 142/44 74 95 12/28 0318 100 High flow 6 nasal cannula 12/28 0315 36.5 71 26 139/44 74 100 12/28 0300 36.5 69 24 136/42 73 92 12/28 0245 36.5 72 27 141/42 73 92 12/28 0230 36.6 74 27 138/43 75 88 12/28 0200 36.6 72 26 136/42 73 89 12/28 0130 36.7 75 25 127/38 66 89 12/28 0100 36.9 72 30 144/49 79 89 12/28 0030 37.0 72 26 156/56 90 98 12/28 0000 37.0 71 20 143/49 79 99 12/27 2330 37.0 70 19 108/36 56 100 12/27 2323 69 99 40 12/27 2300 37.0 71 28 153/43 72 96 12/27 2230 37.0 75 26 153/42 71 93 12/27 2200 37.0 72 26 167/46 75 100 12/27 2132 72 100 40 24 hour I O ending at 0700: 12/28 0700 12/27 1900 Intake Total 1289.10 Output Total 1105 1690 Balance -1105 -400.90 Intake, IV 89.10 Intake, Oral 720 Intake, Oral 480 Supplement Number 3 Bowel Movements Output, Urine 1105 1690 Patient 120.7 kg Weight Weight Bed scale Measurement Method PATIENT WEIGHT: Weight (lb): 266 Weight (oz): 1.57 Weight (kg): 120.700 Physical Exam General appearance: alert, awake, oriented Head/eyes: atraumatic, normocephalic ENT: ET tube Neck: no JVD, no lymphadenopathy Cardiovascular: normal heart sounds, regular rat e and rhythm Respiratory: aerating well, clear to auscultatio n Abdomen: soft, no pulsatile mass Genitourinary: urinary catheter Extremities: pitting edema, no gangrene, no swel ling Treatment Prophylaxis Treatment Prophylaxis Drain(s)/tube(s): Drain(s)/tube(s): chest (x3) Diagnosis, Assessment Plan Free Text A P: This is a 76-year-old female known to have hyper tension, diabetes, atrial fibrillation, s/p permanent pacemaker and histor y of ablation presenting with shortness of breath and found to have multivesse l coronary artery disease therefore she had CABG on December 19 after which she has developed oliguria. Nephrology is following for: 1. Acute kidney injury: Most likely it i s prerenal (cardiorenal), she has been hypotensive postoperatively with require ment for pressor support and inotropic support. Plan is to increase inotropic support or pressor support to bring mean arterial pressure above 65 and give albumin with Lasix to see if it helps him diurese. If he does not respond to higher dose L asix with albumin then I will consider starting him on CRRT to prevent hyper v olemia. 2. Hypervolemia: Plan is to give Lasix a nd if he does not respond to start him on CRRT for extra fluid removal. 3. His electrolytes were all reviewed to be in normal range plan was to monitor and replace as needed. 4. He was receiving vancomycin so plan w as to monitor vancomycin trough levels to prevent ATN. 12/21 1. Acute kidney injury: Most likely it i s prerenal (cardiorenal), she has been hypotensive postoperatively with require ment for pressor support and inotropic support. She responded to Lasix after her blood pressure improved with higher dose vasopressin and she was given albumin. Plan was to continue twice a day Lasix and albumin for hypervolemia. 2. Hypervolemia: Plan is to give Lasix with albu min twice daily and increase dose if needed. 3. His electrolytes were all reviewed to be in normal range plan was to monitor and replace as needed. 4. He was receiving vancomycin so plan w as to monitor vancomycin trough levels to prevent ATN. 12/22 1. Acute kidney injury: Most likely it i s prerenal (cardiorenal), she has been hypotensive postoperatively with require ment for pressor support and inotropic support. She responded to Lasix after her blood pressure improved with higher dose vasopressin and she was given albumin. Plan was to continue Lasix and albumin for hypervolemia.Plan to increase dose t o reach goal of 1 L negative Q12H. 2. Hypervolemia: Plan is to give Lasix with albu min and increase dose if needed. 3. His electrolytes were all reviewed to be in normal range plan was to monitor and replace as needed. 4. He was receiving vancomycin so plan w as to monitor vancomycin trough levels to prevent ATN. 12/23 1. Acute kidney injury: Most likely it i s prerenal (cardiorenal), she has been hypotensive postoperatively with require ment for pressor support and inotropic support. She responded to Lasix after her blood pressure improved with higher dose vasopressin and she was given albumin. Plan was to continue Lasix and albumin for hypervolemia.Plan to increase dose t o reach goal of 1 L negative Q12H. 2. Hypervolemia: Plan is to give Lasix with albu min and increase dose if needed. 3. Her electrolytes were all reviewed to be in n ormal range plan was to monitor and replace as needed. 4. She was receiving vancomy sanjana so plan was to monitor vancomycin trough levels to prevent ATN. 5/ Metabolic alkalosis secondary to diur etics : Plan to give acetazoleamide if worsening. 12/24 1. Acute kidney injury: Resolved, she is respond ing to lasix. 2. Hypervolemia: Plan to continue lasix as rhys ated. 3. Her electrolytes were all reviewed to be in n ormal range plan was to monitor and replace as needed. 4. She was receiving vancomy sanjana so plan was to monitor vancomycin trough levels to prevent ATN. 5/ Metabolic alkalosis secondary to diur etics : Plan to give acetazoleamide if worsening. 12/25 1. Acute kidney injury: Resolved, she is respond ing to lasix. 2. Hypervolemia: Plan to continue lasix as rhys ated.Today it was held for metabolic alkalosis. 3. Her electrolytes were all reviewed to be in n ormal range plan was to monitor and replace as needed. 4. She was receiving vancomy sanjana so plan was to monitor vancomycin trough levels to prevent ATN. 5/ Metabolic alkalosis secondary to diur etics : Plan to give acetazoleamide if worsening. 12/26 1. Acute kidney injury: Resolved, she is respond ing to lasix. 2. Hypervolemia: Plan to continue lasix as tolerated.Today she was on low dose drip. 3. Her electrolytes were all reviewed to be in n ormal range plan was to monitor and replace as needed. 4. She was receiving vancomy sanjana so plan was to monitor vancomycin trough levels to prevent ATN. 5/ Metabolic alkalosis secondary to diur etics : Plan to give acetazoleamide if worsening. 12/27 1. Acute kidney injury: Resolved, she is respond ing to lasix. 2. Hypervolemia: Plan to continue lasix as tolerated.Today she was on low dose twice daily lasix. 3. Hypokalemia/hypomagnesemia:secondary to diure tics, plan was to monitor and replace as needed. 4. She was receiving vancomy sanjana so plan was to monitor vancomycin trough levels to prevent ATN. 5/ Metabolic alkalosis secon lilli to diuretics : Plan to give acetazoleamide and monitor closely. 12/28 1. Acute kidney injury: Resolved, she is respond ing to lasix. 2. Hypervolemia: Plan to continue lasix as tolerated.Today she was on low dose twice daily lasix. 3. Hypokalemia/hypomagnesemia:secondary to diure tics, plan was to monitor and replace as needed. 4. She was receiving vancomy sanjana so plan was to monitor vancomycin trough levels to prevent ATN. 5/ Metabolic alkalosis secon lilli to diuretics : Plan to give acetazoleamide and monitor closely. 12/28 1. Acute kidney injury: Resolved, she is respon ding to lasix. 2. Hypervolemia: Plan to continue lasix as tolerated.Today she was on low dose twice daily lasix. 3. Hypokalemia/hypomagnesemia:secondary to diure tics, plan was to monitor and replace as needed. 4. She was receiving vancomy sanjana so plan was to monitor vancomycin trough levels to prevent ATN. 5/ Metabolic alkalosis secon lilli to diuretics : Plan to give acetazoleamide and monitor closely. 12/28 1. Acute kidney injury: Resolved, she is respond ing to lasix. 2. Hypervolemia: Plan to continue lasix as tolerated.Today she was on low dose twice daily lasix. 3. Hypokalemia/hypomagnesemia:secondary to diure tics, plan was to monitor and replace as needed. 4. She was receiving vancomy sanjana so plan was to monitor vancomycin trough levels to prevent ATN. 5/ Metabolic alkalosis secon lilli to diuretics : Plan to give acetazoleamide and monitor closely. Consultants: cardiology, cardiovascular surgery Electronically Signed by Suki Fuchs MD on at 2137 RPT #:[id number] END OF REPORT 2021-12-28 10:48:00-00:00 [facility]) Hospitalist Progress Note REPORT#:[id number] REPORT STATUS: Signed DATE:12/28/21 TIME: 1048 PATIENT: SAÚL GILES UNIT #: [id number] ROOM/BED: [place] [address] : 43 AGE: 76 SEX: F ATTEND: Leah More MD ADM AUTHOR: Kat Carreon APRN * ALL edits or amendments must be made on the [employer]/computer document * Subjective Chief complaint: Ambulated short distance today. Fatigue, refused bipap. Still on insulin drip. acute respiratory failure --post CABG HPI: 76 years old female with PMH of macular degeneration, obesity, obstructive sleep apnea (CPAP at home), former smoker, hypertensio n, hyperlipidemia, diabetes, Crohn's disease, chronic atr ial fibrillation status post 3 ablations in the past (on Xarelto), pacemaker plac ement is admitted to the hospital post cardiac cath . she need CABG . she had sob for years . sob go t worse . she was admitted to the hospital in [place] . she had cath 3 we eks ago . she was reffered to here for stents placement . she had cath yesterd ay . it show multiple vessels CAD . she is recommend CABG . she still feel sob . no cp no nausea no vomiting no fever no abdominal pain no dizziness . Review of Systems Unable to obtain due to: fatigue Objective General VS/I O: Vital Signs: Date Time Temp Pulse Resp B/P B/P Pulse O2 O2 F low FiO2 Mean Ox Delivery Rate 12/28 0833 36.9 73 29 164/39 71 74 12/28 0830 36.9 72 28 155/44 76 98 12/28 0815 36.9 71 14 137/38 64 100 12/28 899 36.9 74 21 136/40 67 99 12/29 0745 36.8 73 26 146/40 72 99 12/29 0730 36.8 75 28 142/39 68 98 12/29 0715 36.8 72 16 139/38 67 100 12/29 0700 Nasal 6 cannula 10/16 0800 36.7 72 22 133/40 70 90 10/16 0745 36.7 73 27 143/43 73 98 10/16 0730 36.6 73 21 142/49 79 99 10/16 0715 36.6 74 28 146/51 83 96 10/16 0700 36.6 73 22 156/56 89 100 10/16 0645 36.6 73 21 153/56 88 100 10/16 0630 36.6 73 28 147/57 86 100 10/16 0615 36.6 73 25 132/65 90 100 10/16 0600 36.6 73 27 135/53 81 100 10/16 0545 36.6 69 30 151/52 85 99 10/16 0530 36.5 73 33 137/61 91 94 10/16 0515 36.7 72 18 123/40 63 100 10/16 0506 71 100 40 10/16 0500 36.6 73 14 120/40 61 100 10/16 0445 36.7 72 18 134/44 69 99 10/16 0430 36.7 75 27 139/46 74 93 10/16 0415 74 33 134/134 134 10/16 0400 36.5 75 27 140/43 73 99 10/16 0345 36.5 73 37 132/44 74 85 10/16 0330 36.5 71 27 142/44 74 95 10/16 0318 100 High flow 6 nasal cannula 10/16 0315 36.5 71 26 139/44 74 100 10/16 0300 36.5 69 24 136/42 73 92 10/16 0245 36.5 72 27 141/42 73 92 10/16 0230 36.6 74 27 138/43 75 88 10/16 0200 36.6 72 26 136/42 73 89 10/16 0130 36.7 75 25 127/38 66 89 10/16 0100 36.9 72 30 144/49 79 89 10/16 0030 37.0 72 26 156/56 90 98 10/16 0000 37.0 71 20 143/49 79 99 10/15 2330 37.0 70 19 108/36 56 100 10/15 2323 69 99 40 10/15 2300 37.0 71 28 153/43 72 96 10/15 2230 37.0 75 26 153/42 71 93 10/15 2200 37.0 72 26 167/46 75 100 10/15 2132 72 100 40 10/15 213 36.9 72 23 190/43 72 100 10/15 2100 36.9 76 24 150/40 69 100 10/15 2030 36.9 74 30 162/47 80 93 10/15 2015 93 High flow 7 nasal cannula 10/15 1999 36.8 75 27 165/45 78 87 10/15 1945 36.7 73 30 149/36 67 87 10/15 1930 Nasal 6 cannula 10/15 1930 36.7 75 19 150/37 65 95 10/15 1915 36.7 73 29 149/39 68 91 10/15 1900 36.7 75 30 157/42 73 93 10/15 1810 36.8 73 35 139/33 61 93 10/15 1800 36.7 74 31 143/34 63 92 10/15 1745 36.7 74 31 151/40 71 95 10/15 1730 36.8 75 27 162/49 81 88 10/15 1714 72 28 156/47 80 94 10/15 1700 36.6 74 21 152/47 77 96 10/15 1645 36.6 73 23 149/46 77 97 10/15 1630 36.5 75 31 147/46 77 95 10/15 1615 36.6 72 28 137/41 69 96 10/15 1600 36.6 69 17 140/42 67 99 10/15 1545 36.6 73 22 144/44 71 99 10/15 1530 36.5 72 28 142/43 70 94 10/15 1515 36.6 73 30 132/43 69 96 10/15 1500 36.7 72 24 153/48 79 96 10/15 1448 96 High flow 6 nasal cannula 10/15 1445 36.7 73 28 141/48 77 92 10/15 1430 36.9 72 30 134/37 65 95 10/15 1415 36.9 69 27 92 10/15 1400 36.8 72 23 133/46 70 100 10/15 1345 36.8 72 29 131/48 73 82 10/15 1330 36.9 72 30 152/51 80 93 10/15 1315 36.9 71 29 148/50 76 88 10/15 1300 37.0 72 29 132/42 65 97 10/15 1245 37.0 70 30 135/33 58 83 10/15 1230 36.9 70 157/55 83 73 10/15 1215 36.9 73 26 152/52 79 94 12/27 1200 36.8 74 29 145/52 77 86 12/27 1130 36.7 69 24 133/39 64 98 12/27 1115 36.6 70 25 134/39 67 98 12/27 1100 36.6 75 25 139/40 68 98 12/27 1051 36.5 73 38 136/39 65 99 24 hour I O ending at 0700: 12/28 0700 12/27 1900 Intake Total 1289.10 Output Total 1105 1690 Balance -1105 -400.90 Intake, IV 89.10 Intake, Oral 720 Intake, Oral 480 Supplement Number 3 Bowel Movements Output, Urine 1105 1690 Patient 120.7 kg Weight Weight Bed scale Measurement Method PATIENT WEIGHT: Weight (lb): 266 Weight (oz): 1.57 Weight (kg): 120.700 Medications: Active Meds + DC'd Last 24 Hrs Furosemide (LASIX 40 mg/4 mL INJECTION) 40 MG Q2 4H IV (CAN) Furosemide (LASIX 40 mg/4 mL INJECTION) 40 MG BI D 9A 5P IV Acetazolamide (DIAMOX) 500 MG Q12HR IV Insulin Glargine (Lantus/Semglee) 20 UNIT BID [place] BQ Potassium Chloride (POTASSIUM CHLORIDE 20MEQ TAB .ER) 40 MEQ ONCE ONE PO (DC) Furosemide (LASIX 40 mg/4 mL INJECTION) 40 MG ON CE ONE IV (DC) Potassium Chloride (POTASSIUM CHLORIDE 20MEQ TAB .ER) 20 MEQ ONCE ONE PO (DC) Potassium Chloride (POTASSIUM CHLORIDE 20MEQ TAB .ER) 40 MEQ ONCE ONE PO (DC) Sterile Water (WATER FOR INJECTION) 5 ML ASDIR P RN IV Acetazolamide (DIAMOX) 250 MG Q12HR IV (DC) Sterile Water (WATER FOR INJECTION) 5 ML ASDIR P RN IV Sodium Chloride (SODIUM CHLORIDE) 4 ML RTBID NEB Melatonin (Melatonin) 3 MG BEDTIME PO Sodium Chloride (SODIUM CHLORIDE) 10 ML BID IV Sodium Chloride (SODIUM CHLORIDE) 10 ML ASDIR NE N IV Furosemide (LASIX) 240 MG Q24H IV (DC) IV Miscellaneous Supplies (CONTAINER, BAG) 1 EA CH Pantoprazole (PROTONIX) 40 MG DAILY PO Dexmedetomidine/Sodium Chloride (PRECEDEX 1000MC G/NS 250ML) 250 ML ASDIR IV Bisacodyl (DULCOLAX) 10 MG DAILY PRN PRN RECTAL Lactulose (LACTULOSE) 20 GM DAILY PRN PRN PO Magnesium Hydroxide (MILK OF MAGNESIA) 30 ML PETER LY PRN PRN PO Aspirin (ASPIRIN) 81 MG DAILY PO Clopidogrel Bisulfate (Plavix) 75 MG DAILY PO Cyanocobalamin (Vitamin B-12 500 mcg tab) 500 MC G DAILY PO Ferrous Sulfate (FERROUS SULFATE) 325 MG DAILY P O Metolazone (metOLazone) 5 MG DAILY PO Polyethylene Glycol (MIRALAX) 17 GM DAILY PO Atorvastatin Calcium (LIPITOR) 40 MG 2100 PO Docusate Sodium (DOCUSATE SODIUM) 100 MG BID PO Metoprolol Tartrate (LOPRESSOR) 12.5 MG Q12HR PO Senna (SENOKOT) 17.6 MG BEDTIME PO Amiodarone HCl (CORDARONE) 200 MG TID PO Acetaminophen (TYLENOL) 650 MG Q4H PRN PRN PO Tramadol HCl (ULTRAM) 25 MG Q4H PRN PRN PO Tramadol HCl (ULTRAM) 50 MG Q4H PRN PRN PO Insulin Human Regular (HumuLIN R) 100 UNIT ASDIR IV (CKD) Sodium Chloride (SODIUM CHLORIDE 0.9%) 99 ML Acetylcysteine (MUCOMYST FOR RT) 200 MG RTQ6H NE B Albuterol/Ipratropium (DUONEB) 3 ML RTQ6H NEB Bisacodyl (DULCOLAX) 10 MG ONCE PRN RECTAL Dopamine HCl/Dextrose (DOPamine 400MG/D5W 250ML) 250 ML ASDIR IV Milrinone Lactate/Dextrose (MILRINONE 20MG/D5W 1 00ML) 100 ML ASDIR IV ( CKD) Vasopressin (VASOSTRICT 20 Unit/NS 100ML) 100 ML ASDIR IV (CKD) Acetaminophen (TYLENOL) 650 MG Q4H PRN PRN RECTA L Calcium Chloride (CALCIUM CHLORIDE) 1 GM ASDIR P RN IV Dextrose/Water (DEXTROSE 10% IN WATER) 125 ML DIR PRN IV (CKD) Dextrose/Water (DEXTROSE 10% IN WATER) 250 ML DIR PRN IV (CKD) Glucagon (GLUCAGON) 1 MG ASDIR PRN IM Magnesium Sulfate (MAGNESIUM SULFATE 4GM/SWFI 10 0ML) 100 ML ASDIR PRN IV Magnesium Sulfate (MAGNESIUM SULFATE 2GM/SWFI 50 ML) 50 ML ASDIR PRN IV Magnesium Sulfate/Dextrose (MAGNESIUM SULFATE 1G M/D5W 100ML) 100 ML ASDIR PRN IV Nitroglycerin/Dextrose (NITROGLYCERIN 50,000MCG/ D5W 250ML) 250 ML ASDIR IV Norepinephrine Bitartrate (NOREPINEPHRINE 8 MG/N S 250 ML) 250 ML TITRATE IV Potassium Chloride (KCL 20MEQ/SWFI 100ML) 100 ML ASDIR PRN IV Sodium Bicarbonate (SODIUM BICARBONATE) 50 MEQ A SDIR PRN IV Ondansetron HCl (ZOFRAN) 4 MG Q6H PRN PRN IV Physical Exam General appearance: awake, no acute distress, no respiratory distress Head/Eyes: atraumatic, normal conjunctiva/sclera , normal eyelids/periorb., normocephalic Neck: full range of motion, non-tender, no JVD Cardiovascular: normal heart sounds, regular rat e rhythm Respiratory: decreased breath sounds, clear to a uscultation Abdomen: non-tender, normal bowel sounds, soft, no distention Extremities: edema, moves all, no calf tendernes s 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, 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 Skin: dry, intact Results Findings/Data: Laboratory Tests 12/28 12/27 2284 8464 Blood Gas Puncture Site Art Line Art Line O2 Saturation (90 - 100 %) 89.7 L 95.7 ABG pH (7.35 - 7.45) 7.408 7.378 ABG pCO2 (35.0 - 45 mmHg) 63.1 *H 71.2 *H ABG pO2 (80 - 100.0 mmHg) 58.6 L 86.3 ABG HCO3 (22.0 - 26.0 MMOL/L) 40.0 *H 41.9 *H ABG Total CO2 42.0 44.1 ABG Base Excess (-4.0 - 4.0 MMOL/L) 15.2 H 16.7 H ABG Hematocrit (33.0 - 45.0 %) 25 L 24 L ABG Hemoglobin (11.0 - 15.0 G/DL) 8.4 L 8.2 L Sodium (134 - 147 MEQ/L) 144 146 Potassium (3.4 - 5.0 MEQ/L) 3.7 3.8 Chloride (100 - 108 MEQ/L) 99 L 100 Ionized Calcium (1.12 - 1.32 MMOL/L) 1.32 1.25 Lactic Acid (0.9 - 1.7 mmol/l) 0.5 L 0.7 L Temperature (F) 97.7 98.6 O2 Delivery Device Cannula Cannula Laboratory Tests 12/28 12/28 12/28 12/28 12/27 0736 0340 0339 0130 2306 Chemistry Sodium (134 - 147 mEq/L) 145 Potassium (3.4 - 5.0 mEq/L) 3.9 Chloride (100 - 108 mEq/L) 101 Carbon Dioxide (21 - 33 mEq/l) 40 H Anion Gap (0 - 20) 8 BUN (7 - 18 mg/dL) 43 H Creatinine (0.6 - 1.3 mg/dL) 1.0 POC Creatinine (0.6 - 1.0 mg/dL) 1.0 Glomerular Filtr Rate (70 - 80) 53.6 L Glucose (70 - 110 mg/dL) 114 H POC Glucose (70 - 110 MG/DL) 107 130 H 95 POC Glucose (mg/dL) (70 - 110 MG/DL) 102 Calcium (8.0 - 10.5 mg/dL) 10.0 Magnesium (1.80 - 2.40 mg/dL) 2.19 12/27 12/27 12/27 12/27 12/27 2306 1903 1707 1600 1501 Chemistry Sodium (134 - 147 mEq/L) 145 Potassium (3.4 - 5.0 mEq/L) 3.9 Chloride (100 - 108 mEq/L) 101 Carbon Dioxide (21 - 33 mEq/l) 38 H Anion Gap (0 - 20) 10 BUN (7 - 18 mg/dL) 48 H Creatinine (0.6 - 1.3 mg/dL) 1.0 POC Creatinine (0.6 - 1.0 mg/dL) 1.2 H Glomerular Filtr Rate (70 - 80) 53.6 L Glucose (70 - 110 mg/dL) 166 H POC Glucose (70 - 110 MG/DL) 155 H 116 H 198 H POC Glucose (mg/dL) (70 - 110 MG/DL) 86 Calcium (8.0 - 10.5 mg/dL) 9.6 Magnesium (1.80 - 2.40 mg/dL) 2.30 12/27 12/27 12/27 12/27 1430 1359 1249 1148 Chemistry Sodium (134 - 147 mEq/L) 143 Potassium (3.4 - 5.0 mEq/L) 3.9 Chloride (100 - 108 mEq/L) 101 Carbon Dioxide (21 - 33 mEq/l) 37 H Anion Gap (0 - 20) 9 BUN (7 - 18 mg/dL) 43 H Creatinine (0.6 - 1.3 mg/dL) 1.1 Glomerular Filtr Rate (70 - 80) 48.0 L Glucose (70 - 110 mg/dL) 220 H POC Glucose (70 - 110 MG/DL) 159 H 166 H 149 H Calcium (8.0 - 10.5 mg/dL) 9.8 Laboratory Tests 12/28 0340 Hematology WBC (4.5 - 11.0 x10 3/uL) 8.1 RBC (3.54 - 5.02 x10 6/uL) 2.13 L Hgb (11.0 - 15.0 g/dL) 7.8 L Hct (33.0 - 45.0 %) 23.6 L MCV (81.0 - 99.0 fL) 110.8 H MCH (27.0 - 33.0 pg) 36.6 H MCHC (33.0 - 37.0 g/dL) 33.1 RDW (11.5 - 14.5 %) 16.2 H Plt Count (150 - 400 x10 3/uL) 212 MPV (7.0 - 9.0 fL) 10.9 H Neut % (Auto) (56.0 - 77.0 %) 80.6 H Lymph % (Auto) (14.0 - 32.0 %) 5.4 L Barron % (Auto) (4.8 - 9.0 %) 10.0 H Eos % (Auto) (0.3 - 3.7 %) 1.6 Baso % (Auto) (0.0 - 2.0 %) 0.1 Neut # (Auto) (2.0 - 7.6 x10 3/uL) 6.51 Lymph # (Auto) (1.0 - 3.8 x10 3/uL) 0.44 L Barron # (Auto) (0.1 - 0.8 x10 3/uL) 0.81 H Eos # (Auto) (0.0 - 0.2 x10 3/uL) 0.13 Baso # (Auto) (0.0 - 0.2 x10 3/uL) 0.01 Abs Immat Gran (auto) (0.00 - 0.03 x10 3/uL) 0 .19 H Add Manual Diff NO Immature Gran % (0.0 - 2.0 %) 2.3 H Nucleated RBC % (0 - 0 %) 0.9 H Nucleated RBCs # (Man) (0.0 - 0.1 x10 3/uL) 0.0 7 Radiology data: Recent Impressions: RADIOLOGY - XR CHEST 1 V 12/28 0709 Report Impression - Status: SIGNED Entered: 12/28/2021 0836 IMPRESSION: 1. Moderate to severe enlarged cardiac silhouett e. 2. Severe alveolar pulmonary edema versus pneumo norberto. Progression. 3. Moderate bilateral pleural effusions. Impression By: [email or web address] - Leonard Escobar M.D. Diagnosis, Assessment Plan Consultants: cardiology, cardiovascular surgery Plan discussed with: patient, family, nurse, int erdisc care team Free Text DxA P Notes Free text DxA P notes: 76 years old female with PMH of macular degeneration, obesity, obstructive sleep apnea (CPAP at home), former smoker, hypertensio n, hyperlipidemia, diabetes, Crohn's disease, chronic atr ial fibrillation status post 3 ablations in the past (on Xarelto), pacemaker placement CAD -- multiple vesssels HTN DM HLD Crohn's disease chronic atrial fibrillation status post 3 ablati ons macular degeneration obesity obstructive sleep apnea acute respiratory failure --post surgery severe mitral valve regurgitation constrictive pericarditis CAD -- cardiology consult CV surgeon consult CABG -- AM ASA/lipitor afib -- rate control -- hold xarelto for surgery HTN-- continue home med DM-- on lantus -- sliding scale HLD-- on lipitor RONA--cpap as need DVTP -- heparin 12/18- feel sob -- CABG -- afternoon 12/19--post MVR (31 Magna valve), CABG x 1 (ROBERTS- LAD), ILAA and pericardectomy -- she remain intubated on the vent -- chest tube are in place -on levophed and epinephrine drip -- monitor in CCU 12/20- she was extubated --on bipap now -- NPO --off Levophed/epinephrine, continue vasopressi n, inotropes with milrinone, -- chest tube remain in place -- she is stable post surgery 12/21-- she is on high flow O2 -- edema --lasix --chest tube in place --- she is hemodynamic stable -- continue monitor in CCU 12/22- she remain on high O2 CXR show worsening pulmonary venous vascular co ngestion. --lasix iv tid -- chest tube are out -- off drips -- NPO -- start TPN -- continue monitor in CCU 12/23- she remain on high flow O2 --less edema -- on TPN -- she is hemodynamic stable -- continue monitor in CVICU 12/24- she get better -- she is out bed and sit on the chair -- start ambulate with PT -- continue current management 12/25- she is doing well with PT remain on o2 continue iv lasix / add diamox continue supportive care continue monitor in CVICU 12/26- she is on bipap -- she remain sob and edema -- may start lasix drip as nurse -- continue supportive care 12/27 On lasix and insulin drips. Back on lantus dose BID, trend glucose. Continue PT/OT. 12/28 Increase lantus BID. Electronically Signed by Kat Carreon APRN on at 1707 Electronically Signed by Jeffry More MD on 1 at 1251 RPT #:[id number] END OF REPORT 2021-12-28 07:38:00-00:00 [facility] Rehab Progress Note REPORT#:[id number] REPORT STATUS: Signed DATE:12/28/21 TIME: 07 PATIENT: SAÚL GILES UNIT #: [id number] ROOM/BED: [place] [address] : 43 AGE: 76 SEX: F ATTEND: Ayala More MD ADM AUTHOR: Herberth Pantoja * ALL edits or amendments must be made on the [employer]/computer document * Subjective Chief complaint: rehab follow-up Sitting up in chair. Wears CPAP at home. Does not like BiPAP here Reports decreased edema Significant generalized weakness, fatigue No GOLD/N/V/D 14 systems reviewed and negative except that men tioned above. Objective General VS: Vital Signs: Date Time Temp Pulse Resp B/P B/P Pulse O2 O2 F low FiO2 Mean Ox Delivery Rate 12/28 0645 97.9 73 21 153/56 88 100 /16 0630 97.9 73 28 147/57 86 100 /16 0615 97.9 73 25 132/65 90 100 /16 0600 97.9 73 27 135/53 81 100 /16 0545 97.9 69 30 151/52 85 99 /16 0530 97.7 73 33 137/61 91 94 /16 0515 98.1 72 18 123/40 63 100 / 0506 71 100 40 / 0500 97.9 73 14 120/40 61 100 / 0445 98.1 72 18 134/44 69 99 / 0430 98.1 75 27 139/46 74 93 / 0415 74 33 134/134 134 / 0400 97.7 75 27 140/43 73 99 / 0345 97.7 73 37 132/44 74 85 /16 0330 97.7 71 27 142/44 74 95 / 0318 100 High flow 6 nasal cannula 12/28 0315 97.7 71 26 139/44 74 100 / 0300 97.7 69 24 136/42 73 92 / 0245 97.7 72 27 141/42 73 92 /16 0230 97.9 74 27 138/43 75 88 /16 0200 97.9 72 26 136/42 73 89 /16 0130 98.1 75 25 127/38 66 89 /16 0100 98.4 72 30 144/49 79 89 /16 0030 98.6 72 26 156/56 90 98 / 0000 98.6 71 20 143/49 79 99 12/27 2330 98.6 70 19 108/36 56 100 12/27 2323 69 99 40 12/27 2300 98.6 71 28 153/43 72 96 / 2230 98.6 75 26 153/42 71 93 12/27 2200 98.6 72 26 167/46 75 100 12/27 2132 72 100 40 10/15 2130 98.4 72 23 190/43 72 100 10/15 2100 98.4 76 24 150/40 69 100 / 2030 98.4 74 30 162/47 80 93 12/28 2015 93 High flow 7 nasal cannula 10/1999 98.2 75 27 165/45 78 87 10/15 194 98.1 73 30 149/36 67 87 10/15 1930 Nasal 6 cannula 10/ 1930 98.1 75 19 150/37 65 95 10/15 1915 98.1 73 29 149/39 68 91 10/15 1900 98.1 75 30 157/42 73 93 /15 1810 98.2 73 35 139/33 61 93 10/15 1800 98.1 74 31 143/34 63 92 /15 1745 98.1 74 31 151/40 71 95 10/15 1730 98.2 75 27 162/49 81 88 /15 1714 72 28 156/47 80 94 /15 1700 97.9 74 21 152/47 77 96 10/15 1645 97.9 73 23 149/46 77 97 10/15 1630 97.7 75 31 147/46 77 95 /15 1615 97.9 72 28 137/41 69 96 10/15 1600 97.9 69 17 140/42 67 99 10/15 1545 97.9 73 22 144/44 71 99 10/15 1530 97.7 72 28 142/43 70 94 10/15 1515 97.9 73 30 132/43 69 96 10/15 1500 98.1 72 24 153/48 79 96 10/15 1448 96 High flow 6 nasal cannula 10/15 1445 98.1 73 28 141/48 77 92 10/15 1430 98.4 72 30 134/37 65 95 10/15 1415 98.4 69 27 92 10/15 1400 98.2 72 23 133/46 70 100 10/15 1345 98.2 72 29 131/48 73 82 10/15 1330 98.4 72 30 152/51 80 93 10/15 1315 98.4 71 29 148/50 76 88 10/15 1300 98.6 72 29 132/42 65 97 10/15 1245 98.6 70 30 135/33 58 83 10/15 1230 98.4 70 157/55 83 73 10/15 1215 98.4 73 26 152/52 79 94 10/ 1200 98.2 74 29 145/52 77 86 10/ 1130 98.1 69 24 133/39 64 98 10/ 1115 97.9 70 25 134/39 67 98 10/ 1100 97.9 75 25 139/40 68 98 10/ 1051 97.7 73 38 136/39 65 99 10/ 1045 97.9 73 36 135/38 63 100 10/ 1030 97.9 72 34 139/40 67 100 10/ 1015 97.9 75 44 146/42 70 100 10/ 1000 75 50 135/30 56 96 10/15 0945 74 33 144/30 62 94 10/15 0930 73 44 153/38 70 98 10/ 0915 72 23 156/41 72 97 10/ 0906 96 High flow 7 nasal cannula 10/ 0900 74 26 142/33 59 94 10/ 0845 98.1 72 42 159/52 82 92 / 0830 Nasal 7 cannula / 0830 98.1 74 37 151/48 78 89 10/ 0815 97.9 74 31 155/57 88 68 10/ 0800 97.7 77 33 145/53 80 90 10/ 0745 97.7 72 28 166/51 85 99 PATIENT WEIGHT: Weight (lb): 266 Weight (oz): 1.57 Weight (kg): 120.700 Medications: Active Meds + DC'd Last 24 Hrs Furosemide (LASIX 40 mg/4 mL INJECTION) 40 MG Q2 4H IV (CAN) Furosemide (LASIX 40 mg/4 mL INJECTION) 40 MG BI D 9A 5P IV Acetazolamide (DIAMOX) 500 MG Q12HR IV Insulin Glargine (Lantus/Semglee) 20 UNIT BID [place] BQ Potassium Chloride (POTASSIUM CHLORIDE 20MEQ TAB .ER) 40 MEQ ONCE ONE PO (DC) Furosemide (LASIX 40 mg/4 mL INJECTION) 40 MG ON CE ONE IV (DC) Potassium Chloride (POTASSIUM CHLORIDE 20MEQ TAB .ER) 20 MEQ ONCE ONE PO (DC) Potassium Chloride (POTASSIUM CHLORIDE 20MEQ TAB .ER) 40 MEQ ONCE ONE PO (DC) Sterile Water (WATER FOR INJECTION) 5 ML ASDIR P RN IV Insulin Glargine (Lantus/Semglee) 10 UNIT ONCE O NE SUBQ (DC) Potassium Chloride (POTASSIUM CHLORIDE 20MEQ TAB .ER) 40 MEQ ONCE ONE PO (DC) Acetazolamide (DIAMOX) 250 MG Q12HR IV (DC) Sterile Water (WATER FOR INJECTION) 5 ML ASDIR P RN IV Sodium Chloride (SODIUM CHLORIDE) 4 ML RTBID NEB Melatonin (Melatonin) 3 MG BEDTIME PO Sodium Chloride (SODIUM CHLORIDE) 10 ML BID IV Insulin Glargine (Lantus/Semglee) 10 UNIT DAILY SUBQ (DC) Sodium Chloride (SODIUM CHLORIDE) 10 ML ASDIR NE N IV Furosemide (LASIX) 240 MG Q24H IV (DC) IV Miscellaneous Supplies (CONTAINER, BAG) 1 EA CH Pantoprazole (PROTONIX) 40 MG DAILY PO Dexmedetomidine/Sodium Chloride (PRECEDEX 1000MC G/NS 250ML) 250 ML ASDIR IV Bisacodyl (DULCOLAX) 10 MG DAILY PRN PRN RECTAL Lactulose (LACTULOSE) 20 GM DAILY PRN PRN PO Magnesium Hydroxide (MILK OF MAGNESIA) 30 ML PETER LY PRN PRN PO Aspirin (ASPIRIN) 81 MG DAILY PO Clopidogrel Bisulfate (Plavix) 75 MG DAILY PO Cyanocobalamin (Vitamin B-12 500 mcg tab) 500 MC G DAILY PO Ferrous Sulfate (FERROUS SULFATE) 325 MG DAILY P O Metolazone (metOLazone) 5 MG DAILY PO Polyethylene Glycol (MIRALAX) 17 GM DAILY PO Atorvastatin Calcium (LIPITOR) 40 MG 2100 PO Docusate Sodium (DOCUSATE SODIUM) 100 MG BID PO Metoprolol Tartrate (LOPRESSOR) 12.5 MG Q12HR PO Senna (SENOKOT) 17.6 MG BEDTIME PO Amiodarone HCl (CORDARONE) 200 MG TID PO Acetaminophen (TYLENOL) 650 MG Q4H PRN PRN PO Tramadol HCl (ULTRAM) 25 MG Q4H PRN PRN PO Tramadol HCl (ULTRAM) 50 MG Q4H PRN PRN PO Insulin Human Regular (HumuLIN R) 100 UNIT ASDIR IV (CKD) Sodium Chloride (SODIUM CHLORIDE 0.9%) 99 ML Acetylcysteine (MUCOMYST FOR RT) 200 MG RTQ6H NE B Albuterol/Ipratropium (DUONEB) 3 ML RTQ6H NEB Bisacodyl (DULCOLAX) 10 MG ONCE PRN RECTAL Dopamine HCl/Dextrose (DOPamine 400MG/D5W 250ML) 250 ML ASDIR IV Milrinone Lactate/Dextrose (MILRINONE 20MG/D5W 1 00ML) 100 ML ASDIR IV ( CKD) Vasopressin (VASOSTRICT 20 Unit/NS 100ML) 100 ML ASDIR IV (CKD) Acetaminophen (TYLENOL) 650 MG Q4H PRN PRN RECTA L Calcium Chloride (CALCIUM CHLORIDE) 1 GM ASDIR P RN IV Dextrose/Water (DEXTROSE 10% IN WATER) 125 ML DIR PRN IV (CKD) Dextrose/Water (DEXTROSE 10% IN WATER) 250 ML DIR PRN IV (CKD) Glucagon (GLUCAGON) 1 MG ASDIR PRN IM Magnesium Sulfate (MAGNESIUM SULFATE 4GM/SWFI 10 0ML) 100 ML ASDIR PRN IV Magnesium Sulfate (MAGNESIUM SULFATE 2GM/SWFI 50 ML) 50 ML ASDIR PRN IV Magnesium Sulfate/Dextrose (MAGNESIUM SULFATE 1G M/D5W 100ML) 100 ML ASDIR PRN IV Nitroglycerin/Dextrose (NITROGLYCERIN 50,000MCG/ D5W 250ML) 250 ML ASDIR IV Norepinephrine Bitartrate (NOREPINEPHRINE 8 MG/N S 250 ML) 250 ML TITRATE IV Potassium Chloride (KCL 20MEQ/SWFI 100ML) 100 ML ASDIR PRN IV Sodium Bicarbonate (SODIUM BICARBONATE) 50 MEQ A SDIR PRN IV Ondansetron HCl (ZOFRAN) 4 MG Q6H PRN PRN IV Functional Progress Functional progress: Weightbearing: No Restriction Ambulation Distance: 35FT X2 Progression: Forward Assistance Level: Moderate Assistance Gait Deviations: Shuffling SHORT STEPS [facility] Mobility: No Document Pain/Education: No Advanced Progression: No Effects of Treatment: Tolerance increased Function Improved Gait quality improved [place] of care decreased Post [place] Precautions: In Bed, rails Up Call Light in Reach Nursing Notified O2 on Pulse OX in Place Family/Sitter at Bedside Review Plan of Care: Yes PT charges: Gait Training [id number] Gait Cmt: Pt IN RECLINER UPON ARRIVAL. Pt IS DE PENDENT 2 PERSON ASSIST WITH SIT TO STAND AND MOD A WITH GAIT. Pt AMBULATED 35FT X2 WITH ONE SITTING BREAK DUE TO FATIGUE. VS STABLE. Pt RETURNED TO ROOM LAYING IN BED. Pt IS DEPENDENT 2 PERSON ASSIST WITH SIT TO SUPINE. NEED ASSIST WITH TRUNK AND LEs. ALL NEEDS ARE MET. SWITCHED FROM HIGH FLOW NC TO CPAP IN BED. FAMILY IN THE ROOM. NURSE AWARE . If this is the patient's last treatment, this e ntry serves as the discharge summary: Y Start Time: 945 Stop Time: 1009 Treatment Time : ( minutes) 0:24 Completed by: Bea Mathew Conference/Supervising PT: Yes Supervising Therapist: [email or web address] Justin Reyes . BED MOBILITY: Yes Sit to Supine: Dependent Scooting in bed: Dependent TRANSFERS: Yes Bed to/from chair: Moderate Assistance Sit to/from stand: Dependent Physical Exam General appearance: alert, awake Psych: alert, oriented x 3 HEENT: anicteric, mucosal membranes moist Neck: supple, no JVD Cardiovascular: regular rate rhythm, no murmur Respiratory: diminished breath sounds (bases ), on oxygen (Hi flow O2 ) Abdomen: bowel sounds present, non-distended, so ft, non-tender Skin: dry, intact, no rash, incisions D/I Musculoskeletal - general: Musculoskeletal - general: swelling (BLE +3), m oving all ext AG 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, 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, normal speech, n o motor deficits, no sensory deficits Results Findings/Data: Laboratory Tests: 12/28 12/28 12/28 12/27 0340 0339 0130 2306 Blood Gas Puncture Site Art Line O2 Saturation (90 - 100 %) 89.7 L ABG pH (7.35 - 7.45) 7.408 ABG pCO2 (35.0 - 45 mmHg) 63.1 *H ABG pO2 (80 - 100.0 mmHg) 58.6 L ABG HCO3 (22.0 - 26.0 MMOL/L) 40.0 *H ABG Total CO2 42.0 ABG Base Excess (-4.0 - 4.0 MMOL/L) 15.2 H ABG Hematocrit (33.0 - 45.0 %) 25 L ABG Hemoglobin (11.0 - 15.0 G/DL) 8.4 L Sodium (134 - 147 MEQ/L) 144 Potassium (3.4 - 5.0 MEQ/L) 3.7 Chloride (100 - 108 MEQ/L) 99 L Ionized Calcium (1.12 - 1.32 MMOL/L) 1.32 Lactic Acid (0.9 - 1.7 mmol/l) 0.5 L Temperature (F) 97.7 O2 Delivery Device Cannula Chemistry Sodium (134 - 147 mEq/L) 145 Potassium (3.4 - 5.0 mEq/L) 3.9 Chloride (100 - 108 mEq/L) 101 Carbon Dioxide (21 - 33 mEq/l) 40 H Anion Gap (0 - 20) 8 BUN (7 - 18 mg/dL) 43 H Creatinine (0.6 - 1.3 mg/dL) 1.0 POC Creatinine (0.6 - 1.0 mg/dL) 1.0 Glomerular Filtr Rate (70 - 80) 53.6 L Glucose (70 - 110 mg/dL) 114 H POC Glucose (70 - 110 MG/DL) 130 H 95 POC Glucose (mg/dL) (70 - 110 MG/DL) 102 Calcium (8.0 - 10.5 mg/dL) 10.0 Magnesium (1.80 - 2.40 mg/dL) 2.19 Hematology WBC (4.5 - 11.0 x10 3/uL) 8.1 RBC (3.54 - 5.02 x10 6/uL) 2.13 L Hgb (11.0 - 15.0 g/dL) 7.8 L Hct (33.0 - 45.0 %) 23.6 L MCV (81.0 - 99.0 fL) 110.8 H MCH (27.0 - 33.0 pg) 36.6 H MCHC (33.0 - 37.0 g/dL) 33.1 RDW (11.5 - 14.5 %) 16.2 H Plt Count (150 - 400 x10 3/uL) 212 MPV (7.0 - 9.0 fL) 10.9 H Neut % (Auto) (56.0 - 77.0 %) 80.6 H Lymph % (Auto) (14.0 - 32.0 %) 5.4 L Barron % (Auto) (4.8 - 9.0 %) 10.0 H Eos % (Auto) (0.3 - 3.7 %) 1.6 Baso % (Auto) (0.0 - 2.0 %) 0.1 Neut # (Auto) (2.0 - 7.6 x10 3/uL) 6.51 Lymph # (Auto) (1.0 - 3.8 x10 3/uL) 0.44 L Barron # (Auto) (0.1 - 0.8 x10 3/uL) 0.81 H Eos # (Auto) (0.0 - 0.2 x10 3/uL) 0.13 Baso # (Auto) (0.0 - 0.2 x10 3/uL) 0.01 Abs Immat Gran (auto) (0.00 - 0.03 x10 3/uL) 0. 19 H Add Manual Diff NO Immature Gran % (0.0 - 2.0 %) 2.3 H Nucleated RBC % (0 - 0 %) 0.9 H Nucleated RBCs # (Man) (0.0 - 0.1 x10 3/uL) 0.0 7 12/27 12/27 12/27 12/27 12/27 2306 1903 1707 1600 1501 Blood Gas Puncture Site Art Line O2 Saturation (90 - 100 %) 95.7 ABG pH (7.35 - 7.45) 7.378 ABG pCO2 (35.0 - 45 mmHg) 71.2 *H ABG pO2 (80 - 100.0 mmHg) 86.3 ABG HCO3 (22.0 - 26.0 MMOL/L) 41.9 *H ABG Total CO2 44.1 ABG Base Excess (-4.0 - 4.0 MMOL/L) 16.7 H ABG Hematocrit (33.0 - 45.0 %) 24 L ABG Hemoglobin (11.0 - 15.0 G/DL) 8.2 L Sodium (134 - 147 MEQ/L) 146 Potassium (3.4 - 5.0 MEQ/L) 3.8 Chloride (100 - 108 MEQ/L) 100 Ionized Calcium (1.12 - 1.32 MMOL/L) 1.25 Lactic Acid (0.9 - 1.7 mmol/l) 0.7 L Temperature (F) 98.6 O2 Delivery Device Cannula Chemistry Sodium (134 - 147 mEq/L) 145 Potassium (3.4 - 5.0 mEq/L) 3.9 Chloride (100 - 108 mEq/L) 101 Carbon Dioxide (21 - 33 mEq/l) 38 H Anion Gap (0 - 20) 10 BUN (7 - 18 mg/dL) 48 H Creatinine (0.6 - 1.3 mg/dL) 1.0 POC Creatinine (0.6 - 1.0 mg/dL) 1.2 H Glomerular Filtr Rate (70 - 80) 53.6 L Glucose (70 - 110 mg/dL) 166 H POC Glucose (70 - 110 MG/DL) 155 H 116 H 198 H POC Glucose (mg/dL) (70 - 110 MG/DL) 86 Calcium (8.0 - 10.5 mg/dL) 9.6 Magnesium (1.80 - 2.40 mg/dL) 2.30 12/27 12/27 12/27 12/27 12/27 1430 1359 1249 1148 1018 Chemistry Sodium (134 - 147 mEq/L) 143 Potassium (3.4 - 5.0 mEq/L) 3.9 Chloride (100 - 108 mEq/L) 101 Carbon Dioxide (21 - 33 mEq/l) 37 H Anion Gap (0 - 20) 9 BUN (7 - 18 mg/dL) 43 H Creatinine (0.6 - 1.3 mg/dL) 1.1 Glomerular Filtr Rate (70 - 80) 48.0 L Glucose (70 - 110 mg/dL) 220 H POC Glucose (70 - 110 MG/DL) 159 H 166 H 149 H 183 H Calcium (8.0 - 10.5 mg/dL) 9.8 12/27 12/27 12/27 12/27 12/27 1015 1015 1011 0900 0757 Blood Gas Puncture Site Art Line O2 Saturation (90 - 100 %) 94.5 ABG pH (7.35 - 7.45) 7.430 ABG pCO2 (35.0 - 45 mmHg) 63.2 *H ABG pO2 (80 - 100.0 mmHg) 73.3 L ABG HCO3 (22.0 - 26.0 MMOL/L) 42.1 *H ABG Total CO2 44.1 ABG Base Excess (-4.0 - 4.0 MMOL/L) 17.7 H ABG Hematocrit (33.0 - 45.0 %) 25 L ABG Hemoglobin (11.0 - 15.0 G/DL) 8.5 L Martin Test N/A Sodium (134 - 147 MEQ/L) 143 Potassium (3.4 - 5.0 MEQ/L) 3.2 L Chloride (100 - 108 MEQ/L) 94 L Ionized Calcium (1.12 - 1.32 MMOL/L) 1.32 Lactic Acid (0.9 - 1.7 mmol/l) 1.2 Temperature (F) 98 O2 Delivery Device Cannula Chemistry Sodium (134 - 147 mEq/L) 144 Potassium (3.4 - 5.0 mEq/L) 3.4 Chloride (100 - 108 mEq/L) 99 L Carbon Dioxide (21 - 33) 38 H > 40 H Anion Gap (0 - 20) 8 BUN (7 - 18 mg/dL) 49 H Creatinine (0.6 - 1.3 mg/dL) 1.1 POC Creatinine (0.6 - 1.0 mg/dL) 1.3 H Glomerular Filtr Rate (70 - 80) 48.0 L Glucose (70 - 110 mg/dL) 193 H POC Glucose (70 - 110 MG/DL) 235 H 259 H POC Glucose (mg/dL) (70 - 110 MG/DL) 184 H Calcium (8.0 - 10.5 mg/dL) 10.0 Diagnosis, Assessment Plan Free Text A P: 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 fib Hypoxic respiratory failure Plan: Continue PT/OT Out of bed to chair Work on strength, bed mobility, transfers, gait Increase endurance Fall precautions Monitor p.o. intake and nutrition Strict decubitus precautions Monitor anemia Advance therapies as tolerated Tolerating regular diet Continue diuresis- monitor strict I Os Lasix drip discontinued. Started on IV Lasix and Diamox Weigh patient daily Advance therapies as tolerated Will eventually need IRF when medically ready. TT: 34 mins, reviewing chart, notes, labs, meds, therapy notes, discussed medical mgt, and rehab poc, goals. Answered all questions Rehab attestation: . Electronically Signed by Herberth Pantoja on at 1914 RPT #:[id number] END OF REPORT 2021-12-27 19:15:00-00:00 [facility] ([facility] Nephrology Progress Note REPORT#:[id number] REPORT STATUS: Signed DATE:12/27/21 TIME: 1914 PATIENT: SAÚL GILES UNIT #: [id number] ROOM/BED: [place] [address] : 43 AGE: 76 SEX: F ATTEND: Leah More MD ADM AUTHOR: Suki Fuchs MD * ALL edits or amendments must be made on the [employer]/computer document * Subjective Chief complaint: chest pain HPI: This is a 76-year-old female who has past medica l history of hypertension, diabetes, coronary artery disease, atrial fibril lation who presented with worsening shortness of breath and on further wor k-up was 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 She was with normal kidney function prior to surgery and afte r her surgery she began to develop oliguria. Her procedure was done without any complications but after her surgery she did require pressor support for hypotension and she was intubated for respiratory acidosis and hypoxia a nd she was treated with vancomycin for infection treatment. When she was seen this morning she continued to have hypotension and her heart rate was paced by her permanent pacemaker and her urine outp ut was 20 to 30/h. Her family at bedside denied any history of kidney disease, kidney stone, chronic NSAID use or any urinary complaints. They also endorse that her b lood pressure and diabetes were mostly controlled. 12/27 Appearing comfortable, not in any distress,on ox ygen support today. Objective General VS/I O: Vital Signs: Date Time Temp Pulse Resp B/P B/P Pulse O2 O2 F low FiO2 Mean Ox Delivery Rate 12/28 2015 93 High flow 7 nasal cannula 12/27 1930 Nasal 6 cannula 12/27 1810 36.8 73 35 139/33 61 93 12/27 1800 36.7 74 31 143/34 63 92 12/27 1745 36.7 74 31 151/40 71 95 12/27 1730 36.8 75 27 162/49 81 88 12/27 1714 72 28 156/47 80 94 12/27 1700 36.6 74 21 152/47 77 96 12/27 1645 36.6 73 23 149/46 77 97 12/27 1630 36.5 75 31 147/46 77 95 12/27 1615 36.6 72 28 137/41 69 96 12/27 1600 36.6 69 17 140/42 67 99 12/27 1545 36.6 73 22 144/44 71 99 12/27 1530 36.5 72 28 142/43 70 94 12/27 1515 36.6 73 30 132/43 69 96 10/15 1500 36.7 72 24 153/48 79 96 10/15 1448 96 High flow 6 nasal cannula 10/15 1445 36.7 73 28 141/48 77 92 10/15 1430 36.9 72 30 134/37 65 95 10/15 1415 36.9 69 27 92 10/15 1400 36.8 72 23 133/46 70 100 10/15 1345 36.8 72 29 131/48 73 82 10/15 1330 36.9 72 30 152/51 80 93 10/15 1315 36.9 71 29 148/50 76 88 10/15 1300 37.0 72 29 132/42 65 97 10/15 1245 37.0 70 30 135/33 58 83 10/15 1230 36.9 70 157/55 83 73 10/15 1215 36.9 73 26 152/52 79 94 10/15 1200 36.8 74 29 145/52 77 86 10/15 1130 36.7 69 24 133/39 64 98 10/15 1115 36.6 70 25 134/39 67 98 10/15 1100 36.6 75 25 139/40 68 98 10/15 1051 36.5 73 38 136/39 65 99 10/15 1045 36.6 73 36 135/38 63 100 10/15 1030 36.6 72 34 139/40 67 100 10/15 1015 36.6 75 44 146/42 70 100 10/15 1000 75 50 135/30 56 96 10/15 0945 74 33 144/30 62 94 10/15 0930 73 44 153/38 70 98 10/15 0915 72 23 156/41 72 97 10/15 0906 96 High flow 7 nasal cannula 10/15 0900 74 26 142/33 59 94 10/15 0845 36.7 72 42 159/52 82 92 10/15 0830 Nasal 7 cannula 10/15 0830 36.7 74 37 151/48 78 89 10/15 0815 36.6 74 31 155/57 88 68 10/15 0800 36.5 77 33 145/53 80 90 10/15 0745 36.5 72 28 166/51 85 99 10/15 0730 36.6 74 42 147/46 73 100 10/15 0715 36.6 73 153/47 76 100 10/15 0700 36.7 76 29 148/42 67 90 10/15 0638 36.6 99 23 155/47 76 100 12/27 0600 36.5 74 25 155/47 75 98 12/27 0500 36.4 73 12 141/49 76 85 12/27 0400 36.4 74 34 152/52 83 96 12/27 0321 96 High flow 7 nasal cannula 12/27 0300 36.5 69 24 162/55 88 97 12/27 0036 36.9 73 38 123/51 75 99 12/27 0000 36.8 73 19 115/42 62 100 12/26 2349 75 100 40 12/26 2300 36.9 69 22 129/50 73 100 12/26 2222 69 98 40 12/26 2200 36.7 74 35 151/50 80 92 24 hour I O ending at 0700: 12/27 0700 12/26 1900 Intake Total 1224.60 Output Total 810 1600 Balance 414.60 -1600 Intake, IV 164.60 Intake, Oral 1060 Output, Urine 810 1600 Patient 122.5 kg Weight Weight Standing scale Measurement Method PATIENT WEIGHT: Weight (lb): 270 Weight (oz): 1.06 Weight (kg): 122.500 Physical Exam General appearance: alert, awake, oriented Head/eyes: atraumatic, normocephalic ENT: ET tube Neck: no JVD, no lymphadenopathy Cardiovascular: normal heart sounds, regular rat e and rhythm Respiratory: aerating well, clear to auscultatio n Abdomen: soft, no pulsatile mass Genitourinary: urinary catheter Extremities: pitting edema, no gangrene, no swel ling Treatment Prophylaxis Treatment Prophylaxis Drain(s)/tube(s): Drain(s)/tube(s): chest (x3) Diagnosis, Assessment Plan Free Text A P: This is a 76-year-old female known to have hyper tension, diabetes, atrial fibrillation, s/p permanent pacemaker and histor y of ablation presenting with shortness of breath and found to have multivesse l coronary artery disease therefore she had CABG on December 19 after which she has developed oliguria. Nephrology is following for: 1. Acute kidney injury: Most likely it i s prerenal (cardiorenal), she has been hypotensive postoperatively with require ment for pressor support and inotropic support. Plan is to increase inotropic support or pressor support to bring mean arterial pressure above 65 and give albumin with Lasix to see if it helps him diurese. If he does not respond to higher dose L asix with albumin then I will consider starting him on CRRT to prevent hyper v olemia. 2. Hypervolemia: Plan is to give Lasix a nd if he does not respond to start him on CRRT for extra fluid removal. 3. His electrolytes were all reviewed to be in normal range plan was to monitor and replace as needed. 4. He was receiving vancomycin so plan w as to monitor vancomycin trough levels to prevent ATN. 12/21 1. Acute kidney injury: Most likely it i s prerenal (cardiorenal), she has been hypotensive postoperatively with require ment for pressor support and inotropic support. She responded to Lasix after her blood pressure improved with higher dose vasopressin and she was given albumin. Plan was to continue twice a day Lasix and albumin for hypervolemia. 2. Hypervolemia: Plan is to give Lasix with albu min twice daily and increase dose if needed. 3. His electrolytes were all reviewed to be in normal range plan was to monitor and replace as needed. 4. He was receiving vancomycin so plan w as to monitor vancomycin trough levels to prevent ATN. 12/22 1. Acute kidney injury: Most likely it i s prerenal (cardiorenal), she has been hypotensive postoperatively with require ment for pressor support and inotropic support. She responded to Lasix after her blood pressure improved with higher dose vasopressin and she was given albumin. Plan was to continue Lasix and albumin for hypervolemia.Plan to increase dose t o reach goal of 1 L negative Q12H. 2. Hypervolemia: Plan is to give Lasix with albu min and increase dose if needed. 3. His electrolytes were all reviewed to be in normal range plan was to monitor and replace as needed. 4. He was receiving vancomycin so plan w as to monitor vancomycin trough levels to prevent ATN. 12/23 1. Acute kidney injury: Most likely it i s prerenal (cardiorenal), she has been hypotensive postoperatively with require ment for pressor support and inotropic support. She responded to Lasix after her blood pressure improved with higher dose vasopressin and she was given albumin. Plan was to continue Lasix and albumin for hypervolemia.Plan to increase dose t o reach goal of 1 L negative Q12H. 2. Hypervolemia: Plan is to give Lasix with albu min and increase dose if needed. 3. Her electrolytes were all reviewed to be in n ormal range plan was to monitor and replace as needed. 4. She was receiving vancomy sanjana so plan was to monitor vancomycin trough levels to prevent ATN. 5/ Metabolic alkalosis secondary to diur etics : Plan to give acetazoleamide if worsening. 12/24 1. Acute kidney injury: Resolved, she is respond ing to lasix. 2. Hypervolemia: Plan to continue lasix as rhys ated. 3. Her electrolytes were all reviewed to be in n ormal range plan was to monitor and replace as needed. 4. She was receiving vancomy sanjana so plan was to monitor vancomycin trough levels to prevent ATN. 5/ Metabolic alkalosis secondary to diur etics : Plan to give acetazoleamide if worsening. 12/25 1. Acute kidney injury: Resolved, she is respond ing to lasix. 2. Hypervolemia: Plan to continue lasix as rhys ated.Today it was held for metabolic alkalosis. 3. Her electrolytes were all reviewed to be in n ormal range plan was to monitor and replace as needed. 4. She was receiving vancomy sanjana so plan was to monitor vancomycin trough levels to prevent ATN. 5/ Metabolic alkalosis secondary to diur etics : Plan to give acetazoleamide if worsening. 12/26 1. Acute kidney injury: Resolved, she is respond ing to lasix. 2. Hypervolemia: Plan to continue lasix as tolerated.Today she was on low dose drip. 3. Her electrolytes were all reviewed to be in n ormal range plan was to monitor and replace as needed. 4. She was receiving vancom ycin so plan was to monitor vancomycin trough levels to prevent ATN. 5/ Metabolic alkalosis secondary to diur etics : Plan to give acetazoleamide if worsening. 12/27 1. Acute kidney injury: Resolved, she is respond ing to lasix. 2. Hypervolemia: Plan to continue lasix as tolerated.Today she was on low dose twice daily lasix. 3. Hypokalemia/hypomagnesemia:secondary to diure tics, plan was to monitor and replace as needed. 4. She was receiving vancomy sanjana so plan was to monitor vancomycin trough levels to prevent ATN. 5/ Metabolic alkalosis oluon lilli to diuretics : Plan to give acetazoleamide and monitor closely. Consultants: cardiology, cardiovascular surgery Electronically Signed by Suki Fuchs MD on 12/27 at 2120 RPT #:[id number] END OF REPORT 2021-12-27 13:39:00-00:00 [facility] Critical Care Progress Note REPORT#:[id number] REPORT STATUS: Signed DATE:12/27/21 TIME: 1339 PATIENT: SAÚL GILES UNIT #: [id number] ROOM/BED: [place] [id number] : 43 AGE: 76 SEX: F ATTEND: Leah More MD ADM AUTHOR: Ricky Goodwin MD * ALL edits or amendments must be made on the [employer]/computer document * Subjective Chief complaint: CABG/MVR HPI: 76-year-old morbidly obese f emale with history of HTN, HL, IDDM, smoking, RONA on CPAP and home O2 as needed, macular degeneration , Crohn's disease on immunosuppressant medication s, and chronic Afib s/p ablation and PPM (on Xarelto ), who was admitted recently with heart failure symptoms. Patient underwent elective cardiac cath that s howed severe multivessel coronary artery disease not suitable for percutaneous intervention. 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 She went for surgical revascularization today and preop JORDEN revealed severe mitral regurgitation. After discussing new findings with family, patient underwent MVR (31 M agna valve), CABG x 1 (ROBERTS-LAD), ILAA and pericardectomy on 12/19/2021. Has EF of 45%. Crystalloid 1 L, urine output 700, Cell Saver 700. She is a-paced at [facility] [employer]. Surgery went well and patient was transferred to CVICU pos top in a stable surgical condition. She is currently intubated on 2 mics of epine phrine, 2 mics of Levophed and insulin drip. CI 3.0, SvO2 in 60%s, CVP 15 and PAP in 60s. Comments: Interval history- Patient was on lasix drip diuresed well, 1L Bicarb elevated Remained on BiPAP during day. Nasal cannula duri ng the day Objective General VS/I O Last Documented: Result Date Time Pulse Ox 99 12/27 1051 B/P 136/39 12/27 1051 B/P Mean 65 12/27 1051 Temp 36.5 12/27 1051 Pulse 73 12/27 1051 Resp 38 12/27 1051 O2 Delivery Nasal cannula 12/27 0830 O2 Flow Rate 7 12/27 0830 FiO2 40 12/26 2349 24 hour I O ending at 0700: 12/27 0700 12/26 1900 Intake Total 1224.60 Output Total 810 1600 Balance 414.60 -1600 Intake, IV 164.60 Intake, Oral 1060 Output, Urine 810 1600 Patient 122.5 kg Weight Weight Standing scale Measurement Method PATIENT WEIGHT: Weight (lb): 270 Weight (oz): 1.06 Weight (kg): 122.500 Medications: Active Meds + DC'd Last 24 Hrs Furosemide (LASIX 40 mg/4 mL INJECTION) 40 MG Q2 4H IV Acetazolamide (DIAMOX) 500 MG Q12HR IV Insulin Glargine (Lantus/Semglee) 20 UNIT BID [place]INTA[place] BQ Potassium Chloride (POTASSIUM CHLORIDE 20MEQ TAB .ER) 20 MEQ ONCE ONE PO (DC) Potassium Chloride (POTASSIUM CHLORIDE 20MEQ TAB .ER) 40 MEQ ONCE ONE PO (DC) Sterile Water (WATER FOR INJECTION) 5 ML ASDIR P RN IV Insulin Glargine (Lantus/Semglee) 10 UNIT ONCE O NE SUBQ (DC) Potassium Chloride (POTASSIUM CHLORIDE 20MEQ TAB .ER) 40 MEQ ONCE ONE PO (DC) Acetazolamide (DIAMOX) 250 MG Q12HR IV (DC) Sterile Water (WATER FOR INJECTION) 5 ML ASDIR P RN IV Potassium Chloride (POTASSIUM CHLORIDE 20MEQ TAB .ER) 40 MEQ ONCE ONE PO (DC) Sodium Chloride (SODIUM CHLORIDE) 4 ML RTBID NEB Melatonin (Melatonin) 3 MG BEDTIME PO Sodium Chloride (SODIUM CHLORIDE) 10 ML BID IV Acetazolamide (DIAMOX) 250 MG ONCE ONE IV (DC) Sterile Water (WATER FOR INJECTION) 5 ML ASDIR P RN IV (DC) Insulin Glargine (Lantus/Semglee) 10 UNIT DAILY SUBQ (DC) Sodium Chloride (SODIUM CHLORIDE) 10 ML ASDIR NE N IV Furosemide (LASIX) 240 MG Q24H IV (DC) IV Miscellaneous Supplies (CONTAINER, BAG) 1 EA CH Sterile Water (WATER FOR INJECTION) 5 ML ASDIR P RN IV (DC) Pantoprazole (PROTONIX) 40 MG DAILY PO Furosemide (LASIX 40 mg/4 mL INJECTION) 40 MG Q8 H IV (DC) Dexmedetomidine/Sodium Chloride (PRECEDEX 1000MC G/NS 250ML) 250 ML ASDIR IV Bisacodyl (DULCOLAX) 10 MG DAILY PRN PRN RECTAL Lactulose (LACTULOSE) 20 GM DAILY PRN PRN PO Magnesium Hydroxide (MILK OF MAGNESIA) 30 ML PETER LY PRN PRN PO Aspirin (ASPIRIN) 81 MG DAILY PO Clopidogrel Bisulfate (Plavix) 75 MG DAILY PO Cyanocobalamin (Vitamin B-12 500 mcg tab) 500 MC G DAILY PO Ferrous Sulfate (FERROUS SULFATE) 325 MG DAILY P O Metolazone (metOLazone) 5 MG DAILY PO Polyethylene Glycol (MIRALAX) 17 GM DAILY PO Atorvastatin Calcium (LIPITOR) 40 MG 2100 PO Docusate Sodium (DOCUSATE SODIUM) 100 MG BID PO Metoprolol Tartrate (LOPRESSOR) 12.5 MG Q12HR PO Senna (SENOKOT) 17.6 MG BEDTIME PO Amiodarone HCl (CORDARONE) 200 MG TID PO Acetaminophen (TYLENOL) 650 MG Q4H PRN PRN PO Tramadol HCl (ULTRAM) 25 MG Q4H PRN PRN PO Tramadol HCl (ULTRAM) 50 MG Q4H PRN PRN PO Insulin Human Regular (HumuLIN R) 100 UNIT ASDIR IV (CKD) Sodium Chloride (SODIUM CHLORIDE 0.9%) 99 ML Acetylcysteine (MUCOMYST FOR RT) 200 MG RTQ6H NE B Albuterol/Ipratropium (DUONEB) 3 ML RTQ6H NEB Bisacodyl (DULCOLAX) 10 MG ONCE PRN RECTAL Dopamine HCl/Dextrose (DOPamine 400MG/D5W 250ML) 250 ML ASDIR IV Milrinone Lactate/Dextrose (MILRINONE 20MG/D5W 1 00ML) 100 ML ASDIR IV ( CKD) Vasopressin (VASOSTRICT 20 Unit/NS 100ML) 100 ML ASDIR IV (CKD) Acetaminophen (TYLENOL) 650 MG Q4H PRN PRN RECTA L Calcium Chloride (CALCIUM CHLORIDE) 1 GM ASDIR P RN IV Dextrose/Water (DEXTROSE 10% IN WATER) 125 ML DIR PRN IV (CKD) Dextrose/Water (DEXTROSE 10% IN WATER) 250 ML DIR PRN IV (CKD) Glucagon (GLUCAGON) 1 MG ASDIR PRN IM Magnesium Sulfate (MAGNESIUM SULFATE 4GM/SWFI 10 0ML) 100 ML ASDIR PRN IV Magnesium Sulfate (MAGNESIUM SULFATE 2GM/SWFI 50 ML) 50 ML ASDIR PRN IV Magnesium Sulfate/Dextrose (MAGNESIUM SULFATE 1G M/D5W 100ML) 100 ML ASDIR PRN IV Nitroglycerin/Dextrose (NITROGLYCERIN 50,000MCG/ D5W 250ML) 250 ML ASDIR IV Norepinephrine Bitartrate (NOREPINEPHRINE 8 MG/N S 250 ML) 250 ML TITRATE IV Potassium Chloride (KCL 20MEQ/SWFI 100ML) 100 ML ASDIR PRN IV Sodium Bicarbonate (SODIUM BICARBONATE) 50 MEQ A SDIR PRN IV Ondansetron HCl (ZOFRAN) 4 MG Q6H PRN PRN IV Results Findings/data: Laboratory Tests 12/27 12/27 1011 0239 Blood Gas Puncture Site Art Line Art Line O2 Saturation (90 - 100 %) 94.5 95.8 ABG pH (7.35 - 7.45) 7.430 7.388 ABG pCO2 (35.0 - 45 mmHg) 63.2 *H 70.2 *H ABG pO2 (80 - 100.0 mmHg) 73.3 L 85.6 ABG PO2/FiO2 Ratio (mm/Hg) 171.20 ABG HCO3 (22.0 - 26.0 MMOL/L) 42.1 *H 42.4 *H ABG Total CO2 44.1 44.5 ABG Base Excess (-4.0 - 4.0 MMOL/L) 17.7 H 17.4 H ABG Hematocrit (33.0 - 45.0 %) 25 L 24 L ABG Hemoglobin (11.0 - 15.0 G/DL) 8.5 L 8.2 L Martin Test N/A Sodium (134 - 147 MEQ/L) 143 145 Potassium (3.4 - 5.0 MEQ/L) 3.2 L 3.2 L Chloride (100 - 108 MEQ/L) 94 L 98 L Ionized Calcium (1.12 - 1.32 MMOL/L) 1.32 1.36 H Lactic Acid (0.9 - 1.7 mmol/l) 1.2 0.6 L Temperature (F) 98 98.4 O2 Delivery Device Cannula BiPAP FiO2 (%) 50 PEEP (cmH2O) 5 Laboratory Tests 12/27 12/27 12/27 12/27 12/27 1249 1148 1018 1015 1011 Chemistry Sodium (134 - 147 mEq/L) 144 Potassium (3.4 - 5.0 mEq/L) 3.4 Chloride (100 - 108 mEq/L) 99 L Carbon Dioxide (21 - 33 mEq/l) > 40 H Anion Gap (0 - 20) 8 BUN (7 - 18 mg/dL) 49 H Creatinine (0.6 - 1.3 mg/dL) 1.1 POC Creatinine (0.6 - 1.0 mg/dL) 1.3 H Glomerular Filtr Rate (70 - 80) 48.0 L Glucose (70 - 110 mg/dL) 193 H POC Glucose (70 - 110 MG/DL) 166 H 149 H 183 H POC Glucose (mg/dL) (70 - 110 MG/DL) 184 H Calcium (8.0 - 10.5 mg/dL) 10.0 12/27 12/27 12/27 12/27 12/27 0900 0757 0542 0239 0238 Chemistry Sodium (134 - 147 mEq/L) 148 H Potassium (3.4 - 5.0 mEq/L) 3.5 Chloride (100 - 108 mEq/L) 101 Carbon Dioxide (21 - 33 mEq/l) 38 H Anion Gap (0 - 20) 13 BUN (7 - 18 mg/dL) 49 H Creatinine (0.6 - 1.3 mg/dL) 0.9 POC Creatinine (0.6 - 1.0 mg/dL) 1.0 Glomerular Filtr Rate (70 - 80) 60.6 L Glucose (70 - 110 mg/dL) 101 POC Glucose (70 - 110 MG/DL) 235 H 259 H 203 H POC Glucose (mg/dL) (70 - 110 MG/DL) 95 Calcium (8.0 - 10.5 mg/dL) 9.9 Magnesium (1.80 - 2.40 mg/dL) 2.20 12/27 12/27 12/26 12/26 12/26 0152 0021 2207 1954 1748 Chemistry Sodium (134 - 147 mEq/L) 144 Potassium (3.4 - 5.0 mEq/L) 3.8 Chloride (100 - 108 mEq/L) 101 Carbon Dioxide (21 - 33 mEq/l) 38 H Anion Gap (0 - 20) 9 BUN (7 - 18 mg/dL) 54 H Creatinine (0.6 - 1.3 mg/dL) 1.0 Glomerular Filtr Rate (70 - 80) 53.6 L Glucose (70 - 110 mg/dL) 287 H POC Glucose (70 - 110 MG/DL) 86 72 148 H 232 H Calcium (8.0 - 10.5 mg/dL) 9.8 Phosphorus (2.5 - 4.9 MG/DL) 3.0 Magnesium (1.80 - 2.40 mg/dL) 2.30 12/26 1735 Chemistry POC Glucose (70 - 110 MG/DL) 283 H Laboratory Tests 12/27 0238 Hematology WBC (4.5 - 11.0 x10 3/uL) 8.4 RBC (3.54 - 5.02 x10 6/uL) 2.26 L Hgb (11.0 - 15.0 g/dL) 7.7 L Hct (33.0 - 45.0 %) 24.7 L MCV (81.0 - 99.0 fL) 109.3 H MCH (27.0 - 33.0 pg) 34.1 H MCHC (33.0 - 37.0 g/dL) 31.2 L RDW (11.5 - 14.5 %) 15.9 H Plt Count (150 - 400 x10 3/uL) 184 MPV (7.0 - 9.0 fL) 11.2 H Neut % (Auto) (56.0 - 77.0 %) 78.4 H Lymph % (Auto) (14.0 - 32.0 %) 5.2 L Barron % (Auto) (4.8 - 9.0 %) 12.6 H Eos % (Auto) (0.3 - 3.7 %) 1.3 Baso % (Auto) (0.0 - 2.0 %) 0.1 Neut # (Auto) (2.0 - 7.6 x10 3/uL) 6.57 Lymph # (Auto) (1.0 - 3.8 x10 3/uL) 0.44 L Barron # (Auto) (0.1 - 0.8 x10 3/uL) 1.06 H Eos # (Auto) (0.0 - 0.2 x10 3/uL) 0.11 Baso # (Auto) (0.0 - 0.2 x10 3/uL) 0.01 Abs Immat Gran (auto) (0.00 - 0.03 x10 3/uL) 0. 20 H Add Manual Diff NO Immature Gran % (0.0 - 2.0 %) 2.4 H Nucleated RBC % (0 - 0 %) 1.5 H Nucleated RBCs # (Man) (0.0 - 0.1 x10 3/uL) 0.1 3 H Laboratory Tests 12/27/21 1015: [Embedded Image Not Available] 12/27/21 0238: [Embedded Image Not Available] 12/26/21 1748: [Embedded Image Not Available] Free Text Obj Notes Free Text Obj Notes: General appearance: elderly female in no acute d istress, interactive HEENT: atraumatic, normocephalic, moist mucosal membranes Neck: full range of motion, supple/no meningismu s Cardiovascular: S1S2 regular rate and rhythm, a- paced Respiratory: symmetric expansion, no acute respi ratory distress Abdomen: soft, obese, non-tender, no distention, no guarding Genitourinary: [place] with clear urine Extremities: pedal pulses palpable, moves all, n o clubbing, no cyanosis, LE edema Musculoskeletal: normal inspection, no muscle sp asm 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 S/P MVR (mitral valve replacement) 2. S/P CABG x 1 3. Postoperative pulmonary dysfunction after ca rdiac surgery 4. Severe mitral regurgitation 5. CAD (coronary artery disease) 6. CKD (chronic kidney disease) 7. Immunosuppressed status 8. RONA on CPAP 9. Chronic a-fib 10. Crohn disease Free text A P: 76-year-old morbidly obese f emale with history of HTN, HL, IDDM, smoking, RONA on CPAP and home O2 as needed, macular degeneration , Crohn's disease on immunosuppressant medication s, and chronic Afib s/p ablation and PPM (on Xarelto ), who was admitted recently with heart failure symptoms. Patient underwent elective cardiac cath that s howed severe multivessel coronary artery disease not suitable for percutaneous intervention. 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 She went for surgical revascularization today and preop JORDEN revealed severe mitral regurgitation. After discussing new findings with family, patient underwent MVR (31 M agna valve), CABG x 1 (ROBERTS-LAD), ILAA and pericardectomy on 12/19/2021. Has EF of 45%. Crystalloid 1 L, urine output 700, Cell Saver 700. She is a-paced at [employer]. Surgery went well and patient was transferred to CVICU pos top in a stable surgical condition. She is currently intubated on 2 mics of epine phrine, 2 mics of Levophed and insulin drip. CI 3.0, SvO2 in 60%s, CVP 15 and PAP in 60s. Remains neuro intact, multimodal pain control, a void opiates Patient needs BiPAP at night for underlying RONA 18/10 and 40%. In the day she is on 6 L nasal cannula coming down on the oxyge n requirements. Chest x-ray shows slight improvement in the infiltra ny. Patient is doing some spirometry. Encourage incentive spirometry. Continue duo neb s and Mucomyst. Is on Lasix drip. Stop this morning. Will receiv e Diamox tablet every 12. Intermittent Lasix dosing. Monitor ins and outs. Repeat BMP and ABG and pleat electrolytes. White count is stable. No signs of infection or fever. Continue to monitor. Hemoglobin is stable. Continue beta-delma and amiodarone. Paced rhyt Patient is on insulin drip for control of her quintana gars. Increase Lantus to 20 twice daily. Patient still has [place] for accurate ins and out s Total critical care time 40 minutes Consultants: cardiology, cardiovascular surgery Electronically Signed by Ricky Goodwin MD on at 1350 RPT #:[id number] END OF REPORT 2021-12-27 10:50:00-00:[address] [facility] ([facility]) Hospitalist Progress Note REPORT#:[id number] REPORT STATUS: Signed DATE:12/27/21 TIME: 1050 PATIENT: SAÚL GILES UNIT #: [id number] ROOM/BED: [place] [address] : 43 AGE: 76 SEX: F ATTEND: Leah More MD ADM AUTHOR: Kat Carreon APRN * ALL edits or amendments must be made on the [employer]/computer document * Subjective Chief complaint: Doing better, OOB to chair this AM. On insulin d rip, lantus dose adjusted acute respiratory failure --post CABG HPI: 76 years old female with PMH of macular degeneration, obesity, obstructive sleep apnea (CPAP at home), former smoker, hypertensio n, hyperlipidemia, diabetes, Crohn's disease, chronic atr ial fibrillation status post 3 ablations in the past (on Xarelto), pacemaker plac ement is admitted to the hospital post cardiac cath . she need CABG . she had sob for years . sob go t worse . she was admitted to the hospital in [place] . she had cath 3 we eks ago . she was reffered to here for stents placement . she had cath yesterd ay . it show multiple vessels CAD . she is recommend CABG . she still feel sob . no cp no nausea no vomiting no fever no abdominal pain no dizziness . Review of Systems Unable to obtain due to: fatigue Objective General VS/I O: Vital Signs: Date Time Temp Pulse Resp B/P B/P Pulse O2 O2 F low FiO2 Mean Ox Delivery Rate 12/27 0638 36.6 99 23 155/47 76 100 12/27 0600 36.5 74 25 155/47 75 98 12/27 0500 36.4 73 12 141/49 76 85 12/27 0400 36.4 74 34 152/52 83 96 12/27 0321 96 High flow 7 nasal cannula 12/27 0300 36.5 69 24 162/55 88 97 12/27 0036 36.9 73 38 123/51 75 99 12/27 0000 36.8 73 19 115/42 62 100 12/26 2349 75 100 40 12/26 2300 36.9 69 22 129/50 73 100 12/26 2222 69 98 40 12/26 2200 36.7 74 35 151/50 80 92 12/27 1999 Nasal 7 cannula 12/27 1999 36.7 75 97 Nasal 7 cannula 12/27 1999 36.7 69 38 149/53 79 99 12/26 1956 95 High flow 7 nasal cannula 12/26 190 36.7 74 43 159/57 88 96 12/26 1900 36.7 70 37 158/57 87 95 12/26 1800 36.7 72 37 157/56 84 98 12/26 1700 36.6 75 29 158/54 83 94 12/26 1652 36.5 71 24 155/51 80 97 12/26 1600 36.5 73 36 149/52 80 93 12/26 1500 36.5 75 27 168/66 99 99 12/26 1445 36.5 75 33 157/58 90 99 12/26 1432 99 High flow 7 nasal cannula 12/26 1400 36.4 71 27 140/48 75 97 12/26 1300 69 24 154/50 78 95 12/26 1200 36.5 72 25 160/70 101 100 12/26 1105 75 100 12/26 1100 36.5 75 16 125/51 72 100 24 hour I O ending at 0700: 12/27 0700 12/26 1900 Intake Total 1224.60 Output Total 810 1600 Balance 414.60 -1600 Intake, IV 164.60 Intake, Oral 1060 Output, Urine 810 1600 Patient 122.5 kg Weight Weight Standing scale Measurement Method PATIENT WEIGHT: Weight (lb): 270 Weight (oz): 1.06 Weight (kg): 122.500 Medications: Active Meds + DC'd Last 24 Hrs Insulin Glargine (Lantus/Semglee) 20 UNIT BID QUINTANA BQ Insulin Glargine (Lantus/Semglee) 10 UNIT ONCE O NE SUBQ (DC) Potassium Chloride (POTASSIUM CHLORIDE 20MEQ TAB .ER) 40 MEQ ONCE ONE PO (DC) Acetazolamide (DIAMOX) 250 MG Q12HR IV Sterile Water (WATER FOR INJECTION) 5 ML ASDIR P RN IV Potassium Chloride (POTASSIUM CHLORIDE 20MEQ TAB .ER) 40 MEQ ONCE ONE PO (DC) Sodium Chloride (SODIUM CHLORIDE) 4 ML RTBID NEB Melatonin (Melatonin) 3 MG BEDTIME PO Sodium Chloride (SODIUM CHLORIDE) 10 ML BID IV Acetazolamide (DIAMOX) 250 MG ONCE ONE IV (DC) Sterile Water (WATER FOR INJECTION) 5 ML ASDIR P RN IV (DC) Insulin Glargine (Lantus/Semglee) 10 UNIT DAILY SUBQ (DC) Lidocaine HCl (LIDOCAINE 1% 5ML) 5 ML ONCE ONE L OCAL (DC) Sodium Chloride (SODIUM CHLORIDE) 10 ML ASDIR NE N IV Furosemide (LASIX) 240 MG Q24H IV (CKD) IV Miscellaneous Supplies (CONTAINER, BAG) 1 EA CH Sterile Water (WATER FOR INJECTION) 5 ML ASDIR P RN IV (DC) Pantoprazole (PROTONIX) 40 MG DAILY PO Furosemide (LASIX 40 mg/4 mL INJECTION) 40 MG Q8 H IV (DC) Dexmedetomidine/Sodium Chloride (PRECEDEX 1000MC G/NS 250ML) 250 ML ASDIR IV Bisacodyl (DULCOLAX) 10 MG DAILY PRN PRN RECTAL Lactulose (LACTULOSE) 20 GM DAILY PRN PRN PO Magnesium Hydroxide (MILK OF MAGNESIA) 30 ML PETER LY PRN PRN PO Aspirin (ASPIRIN) 81 MG DAILY PO Clopidogrel Bisulfate (Plavix) 75 MG DAILY PO Cyanocobalamin (Vitamin B-12 500 mcg tab) 500 MC G DAILY PO Ferrous Sulfate (FERROUS SULFATE) 325 MG DAILY P O Metolazone (metOLazone) 5 MG DAILY PO Polyethylene Glycol (MIRALAX) 17 GM DAILY PO Atorvastatin Calcium (LIPITOR) 40 MG 2100 PO Docusate Sodium (DOCUSATE SODIUM) 100 MG BID PO Metoprolol Tartrate (LOPRESSOR) 12.5 MG Q12HR PO Senna (SENOKOT) 17.6 MG BEDTIME PO Amiodarone HCl (CORDARONE) 200 MG TID PO Acetaminophen (TYLENOL) 650 MG Q4H PRN PRN PO Tramadol HCl (ULTRAM) 25 MG Q4H PRN PRN PO Tramadol HCl (ULTRAM) 50 MG Q4H PRN PRN PO Insulin Human Regular (HumuLIN R) 100 UNIT ASDIR IV (CKD) Sodium Chloride (SODIUM CHLORIDE 0.9%) 99 ML Acetylcysteine (MUCOMYST FOR RT) 200 MG RTQ6H NE B Albuterol/Ipratropium (DUONEB) 3 ML RTQ6H NEB Bisacodyl (DULCOLAX) 10 MG ONCE PRN RECTAL Dopamine HCl/Dextrose (DOPamine 400MG/D5W 250ML) 250 ML ASDIR IV Milrinone Lactate/Dextrose (MILRINONE 20MG/D5W 1 00ML) 100 ML ASDIR IV ( CKD) Vasopressin (VASOSTRICT 20 Unit/NS 100ML) 100 ML ASDIR IV (CKD) Acetaminophen (TYLENOL) 650 MG Q4H PRN PRN RECTA L Calcium Chloride (CALCIUM CHLORIDE) 1 GM ASDIR P RN IV Dextrose/Water (DEXTROSE 10% IN WATER) 125 ML DIR PRN IV (CKD) Dextrose/Water (DEXTROSE 10% IN WATER) 250 ML DIR PRN IV (CKD) Glucagon (GLUCAGON) 1 MG ASDIR PRN IM Magnesium Sulfate (MAGNESIUM SULFATE 4GM/SWFI 10 0ML) 100 ML ASDIR PRN IV Magnesium Sulfate (MAGNESIUM SULFATE 2GM/SWFI 50 ML) 50 ML ASDIR PRN IV Magnesium Sulfate/Dextrose (MAGNESIUM SULFATE 1G M/D5W 100ML) 100 ML ASDIR PRN IV Nitroglycerin/Dextrose (NITROGLYCERIN 50,000MCG/ D5W 250ML) 250 ML ASDIR IV Norepinephrine Bitartrate (NOREPINEPHRINE 8 MG/N S 250 ML) 250 ML TITRATE IV Potassium Chloride (KCL 20MEQ/SWFI 100ML) 100 ML ASDIR PRN IV Sodium Bicarbonate (SODIUM BICARBONATE) 50 MEQ A SDIR PRN IV Ondansetron HCl (ZOFRAN) 4 MG Q6H PRN PRN IV Physical Exam General appearance: lethargic, awake Head/Eyes: atraumatic, normal conjunctiva/sclera , normal eyelids/periorb., normocephalic Neck: full range of motion, non-tender, no JVD Cardiovascular: normal heart sounds, regular rat e rhythm Respiratory: decreased breath sounds, clear to a uscultation Abdomen: non-tender, normal bowel sounds, soft, no distention Extremities: edema, moves all, no calf tendernes s 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, 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 Skin: dry, intact Results Findings/Data: Laboratory Tests 12/27 12/27 12/26 12/26 1011 0239 1242 1134 Blood Gas Puncture Site Art Line Art Line Art Line Art Li ne O2 Saturation (90 - 100 %) 94.5 95.8 98.6 97.2 ABG pH (7.35 - 7.45) 7.430 7.388 7.356 7.364 ABG pCO2 (35.0 - 45 mmHg) 63.2 *H 70.2 *H 69.2 *H 68.3 *H ABG pO2 (80 - 100.0 mmHg) 73.3 L 85.6 128.4 H 1 00.9 H ABG PO2/FiO2 Ratio (mm/Hg) 171.20 201.80 ABG HCO3 (22.0 - 26.0 MMOL/L) 42.1 *H 42.4 *H 3 8.8 *H 39.0 *H ABG Total CO2 44.1 44.5 40.9 41.1 ABG Base Excess (-4.0 - 4.0 MMOL/L) 17.7 H 17.4 H 13.2 H 13.6 H ABG Hematocrit (33.0 - 45.0 %) 25 L 24 L 25 L 2 3 L ABG Hemoglobin (11.0 - 15.0 G/DL) 8.5 L 8.2 L 8 .6 L 7.9 L Martin Test N/A Sodium (134 - 147 MEQ/L) 143 145 145 146 Potassium (3.4 - 5.0 MEQ/L) 3.2 L 3.2 L 3.8 3. 7 Chloride (100 - 108 MEQ/L) 94 L 98 L 99 L 98 L Ionized Calcium (1.12 - 1.32 MMOL/L) 1.32 1.36 H 1.37 H 1.38 H Lactic Acid (0.9 - 1.7 mmol/l) 1.2 0.6 L 0.7 L 0.6 L Temperature (F) 98 98.4 O2 Delivery Device Cannula BiPAP HFNC BiPAP FiO2 (%) 50 50 PEEP (cmH2O) 5 Laboratory Tests 12/27 12/27 12/27 12/27 12/27 1018 1011 0900 0757 0542 Chemistry POC Creatinine (0.6 - 1.0 mg/dL) 1.3 H POC Glucose (70 - 110 MG/DL) 183 H 235 H 259 H 203 H POC Glucose (mg/dL) (70 - 110 MG/DL) 184 H 12/27 12/27 12/27 12/27 12/26 0239 0238 0152 0021 2207 Chemistry Sodium (134 - 147 mEq/L) 148 H Potassium (3.4 - 5.0 mEq/L) 3.5 Chloride (100 - 108 mEq/L) 101 Carbon Dioxide (21 - 33 mEq/l) 38 H Anion Gap (0 - 20) 13 BUN (7 - 18 mg/dL) 49 H Creatinine (0.6 - 1.3 mg/dL) 0.9 POC Creatinine (0.6 - 1.0 mg/dL) 1.0 Glomerular Filtr Rate (70 - 80) 60.6 L Glucose (70 - 110 mg/dL) 101 POC Glucose (70 - 110 MG/DL) 86 72 148 H POC Glucose (mg/dL) (70 - 110 MG/DL) 95 Calcium (8.0 - 10.5 mg/dL) 9.9 Magnesium (1.80 - 2.40 mg/dL) 2.20 12/26 12/26 12/26 12/26 12/26 1954 1748 1735 1242 1242 Chemistry Sodium (134 - 147 mEq/L) 144 144 Potassium (3.4 - 5.0 mEq/L) 3.8 3.9 Chloride (100 - 108 mEq/L) 101 101 Carbon Dioxide (21 - 33 mEq/l) 38 H 39 H Anion Gap (0 - 20) 9 8 BUN (7 - 18 mg/dL) 54 H 55 H Creatinine (0.6 - 1.3 mg/dL) 1.0 0.9 POC Creatinine (0.6 - 1.0 mg/dL) 1.0 Glomerular Filtr Rate (70 - 80) 53.6 L 60.6 L Glucose (70 - 110 mg/dL) 287 H 207 H POC Glucose (70 - 110 MG/DL) 232 H 283 H POC Glucose (mg/dL) (70 - 110 MG/DL) 203 H Calcium (8.0 - 10.5 mg/dL) 9.8 10.1 Ionized Calcium Gigi (1.09 - 1.30 MMOL/L) 1.22 Phosphorus (2.5 - 4.9 MG/DL) 3.0 Magnesium (1.80 - 2.40 mg/dL) 2.30 2.43 H 12/26 1134 Chemistry POC Creatinine (0.6 - 1.0 mg/dL) 1.0 POC Glucose (mg/dL) (70 - 110 MG/DL) 194 H Laboratory Tests 12/27 0238 Hematology WBC (4.5 - 11.0 x10 3/uL) 8.4 RBC (3.54 - 5.02 x10 6/uL) 2.26 L Hgb (11.0 - 15.0 g/dL) 7.7 L Hct (33.0 - 45.0 %) 24.7 L MCV (81.0 - 99.0 fL) 109.3 H MCH (27.0 - 33.0 pg) 34.1 H MCHC (33.0 - 37.0 g/dL) 31.2 L RDW (11.5 - 14.5 %) 15.9 H Plt Count (150 - 400 x10 3/uL) 184 MPV (7.0 - 9.0 fL) 11.2 H Neut % (Auto) (56.0 - 77.0 %) 78.4 H Lymph % (Auto) (14.0 - 32.0 %) 5.2 L Barron % (Auto) (4.8 - 9.0 %) 12.6 H Eos % (Auto) (0.3 - 3.7 %) 1.3 Baso % (Auto) (0.0 - 2.0 %) 0.1 Neut # (Auto) (2.0 - 7.6 x10 3/uL) 6.57 Lymph # (Auto) (1.0 - 3.8 x10 3/uL) 0.44 L Barron # (Auto) (0.1 - 0.8 x10 3/uL) 1.06 H Eos # (Auto) (0.0 - 0.2 x10 3/uL) 0.11 Baso # (Auto) (0.0 - 0.2 x10 3/uL) 0.01 Abs Immat Gran (auto) (0.00 - 0.03 x10 3/uL) 0. 20 H Add Manual Diff NO Immature Gran % (0.0 - 2.0 %) 2.4 H Nucleated RBC % (0 - 0 %) 1.5 H Nucleated RBCs # (Man) (0.0 - 0.1 x10 3/uL) 0.1 3 H Radiology data: Recent Impressions: RADIOLOGY - XR CHEST 1 V 12/27 7232 Report Impression - Status: SIGNED Entered: 12/27/2021 1005 IMPRESSION: 1. Stable to slightly improved bilateral layerin g pleural effusions. 2. Similar bilateral alveolar pulmonary opacitie s, probably representing edema and or atelectasis/secretions . 3. Otherwise grossly stable postoperative medias tinum. Impression By: [email or web address] - Jonathan vinson M.D. Diagnosis, Assessment Plan Consultants: cardiology, cardiovascular surgery Plan discussed with: patient, family, nurse Free Text DxA P Notes Free text DxA P notes: 76 years old female with PMH of macular degeneration, obesity, obstructive sleep apnea (CPAP at home), former smoker, hypertensio n, hyperlipidemia, diabetes, Crohn's disease, chronic atr ial fibrillation status post 3 ablations in the past (on Xarelto), pacemaker placement CAD -- multiple vesssels HTN DM HLD Crohn's disease chronic atrial fibrillation status post 3 ablati ons macular degeneration obesity obstructive sleep apnea acute respiratory failure --post surgery severe mitral valve regurgitation constrictive pericarditis CAD -- cardiology consult CV surgeon consult CABG -- AM ASA/lipitor afib -- rate control -- hold xarelto for surgery HTN-- continue home med DM-- on lantus -- sliding scale HLD-- on lipitor RONA--cpap as need DVTP -- heparin 12/18- feel sob -- CABG -- afternoon 12/19--post MVR (31 Magna valve), CABG x 1 (ROBERTS- LAD), ILAA and pericardectomy -- she remain intubated on the vent -- chest tube are in place -on levophed and epinephrine drip -- monitor in CCU 12/20- she was extubated --on bipap now -- NPO --off Levophed/epinephrine, continue vasopressi n, inotropes with milrinone, -- chest tube remain in place -- she is stable post surgery 12/21-- she is on high flow O2 -- edema --lasix --chest tube in place --- she is hemodynamic stable -- continue monitor in CCU 12/22- she remain on high O2 CXR show worsening pulmonary venous vascular co ngestion. --lasix iv tid -- chest tube are out -- off drips -- NPO -- start TPN -- continue monitor in CCU 12/23- she remain on high flow O2 --less edema -- on TPN -- she is hemodynamic stable -- continue monitor in CVICU 12/24- she get better -- she is out bed and sit on the chair -- start ambulate with PT -- continue current management 12/25- she is doing well with PT remain on o2 continue iv lasix / add diamox continue supportive care continue monitor in CVICU 12/26- she is on bipap -- she remain sob and edema -- may start lasix drip as nurse -- continue supportive care 12/27 On lasix and insulin drips. Back on lantus dose BID, trend glucose. Continue PT/OT. Electronically Signed by Kat Carreon APRN on at 1602 Electronically Signed by Jeffry More MD on 1 at 1251 RPT #:[id number] END OF REPORT 2021-12-27 06:53:00-00:00 [facility] Rehab Progress Note REPORT#:[id number] REPORT STATUS: Signed DATE:12/27/21 TIME: 06 PATIENT: SAÚL GILES UNIT #: [id number] ROOM/BED: [place] [id number] : 43 AGE: 76 SEX: F ATTEND: Leah More MD ADM AUTHOR: Herberth Patnoja * ALL edits or amendments must be made on the [employer]/computer document * Subjective Chief complaint: rehab follow-up Fatigue Seen in CVICU Shortness of breath with increased activity Significant generalized weakness Bilateral lower extremity edema No GOLD/N/V/D 14 systems reviewed and negative except that men tioned above. Objective General VS: Vital Signs: Date Time Temp Pulse Resp B/P B/P Pulse O2 O2 F low FiO2 Mean Ox Delivery Rate 12/27 0538 97.9 99 23 155/47 76 100 12/27 0600 97.7 74 25 155/47 75 98 12/27 0500 97.5 73 12 141/49 76 85 12/27 0400 97.5 74 34 152/52 83 96 12/27 0321 96 High flow 7 nasal cannula 12/27 0300 97.7 69 24 162/55 88 97 12/27 0036 98.4 73 38 123/51 75 99 12/27 0000 98.2 73 19 115/42 62 100 10/14 2349 75 100 40 12/26 2300 98.4 69 22 129/50 73 100 12/26 2222 69 98 40 12/26 2200 98.1 74 35 151/50 80 92 12/27 1999 Nasal 7 cannula 12/27 1999 98.1 75 97 Nasal 7 cannula 12/27 1999 98.1 69 38 149/53 79 99 12/26 1956 95 High flow 7 nasal cannula 12/26 1908 98.1 74 43 159/57 88 96 12/26 1900 98.1 70 37 158/57 87 95 12/26 1800 98.1 72 37 157/56 84 98 12/26 1700 97.9 75 29 158/54 83 94 12/26 1652 97.7 71 24 155/51 80 97 12/26 1600 97.7 73 36 149/52 80 93 12/26 1500 97.7 75 27 168/66 99 99 12/26 1445 97.7 75 33 157/58 90 99 12/26 1432 99 High flow 7 nasal cannula 12/26 1400 97.5 71 27 140/48 75 97 12/26 1300 69 24 154/50 78 95 12/26 1200 97.7 72 25 160/70 101 100 12/26 1105 75 100 12/26 1100 97.7 75 16 125/51 72 100 12/26 1000 72 25 100 12/26 0931 120/56 81 / 0931 97.3 75 26 132/51 74 100 12/26 0900 128/63 90 12/26 0900 97.3 74 31 136/44 70 100 12/26 0831 117/60 79 12/26 0831 97.3 70 31 151/52 82 99 12/26 0801 146/65 93 12/26 0801 97.5 73 26 160/56 88 96 12/26 0800 BiPAP 12/26 0800 97.5 75 30 149/55 86 96 12/26 0747 77 100 12/26 0747 100 BiPAP 40 12/26 0710 97.5 72 26 168/64 99 100 12/26 0700 97.7 72 27 147/52 80 91 PATIENT WEIGHT: Weight (lb): 270 Weight (oz): 1.06 Weight (kg): 122.500 Medications: Active Meds + DC'd Last 24 Hrs Potassium Chloride (POTASSIUM CHLORIDE 20MEQ TAB .ER) 40 MEQ ONCE ONE PO (DC) Sodium Chloride (SODIUM CHLORIDE) 4 ML RTBID NEB Melatonin (Melatonin) 3 MG BEDTIME PO Sodium Chloride (SODIUM CHLORIDE) 10 ML BID IV Acetazolamide (DIAMOX) 250 MG ONCE ONE IV (DC) Sterile Water (WATER FOR INJECTION) 5 ML ASDIR P RN IV (DC) Insulin Glargine (Lantus/Semglee) 10 UNIT DAILY SUBQ Lidocaine HCl (LIDOCAINE 1% 5ML) 5 ML ONCE ONE L OCAL (DC) Sodium Chloride (SODIUM CHLORIDE) 10 ML ASDIR NE N IV Furosemide (LASIX) 240 MG Q24H IV (CKD) IV Miscellaneous Supplies (CONTAINER, BAG) 1 EA CH Acetazolamide (DIAMOX) 250 MG ONCE ONE IV (DC) Sterile Water (WATER FOR INJECTION) 5 ML ASDIR P RN IV (DC) Potassium Phos/Sodium Phos (NEUTRA-PHOS) 1 UDPKT TID PO (DC) Pantoprazole (PROTONIX) 40 MG DAILY PO Furosemide (LASIX 40 mg/4 mL INJECTION) 40 MG Q8 H IV (DC) Dexmedetomidine/Sodium Chloride (PRECEDEX 1000MC G/NS 250ML) 250 ML ASDIR IV Bisacodyl (DULCOLAX) 10 MG DAILY PRN PRN RECTAL Lactulose (LACTULOSE) 20 GM DAILY PRN PRN PO Magnesium Hydroxide (MILK OF MAGNESIA) 30 ML PETER LY PRN PRN PO Aspirin (ASPIRIN) 81 MG DAILY PO Clopidogrel Bisulfate (Plavix) 75 MG DAILY PO Cyanocobalamin (Vitamin B-12 500 mcg tab) 500 MC G DAILY PO Ferrous Sulfate (FERROUS SULFATE) 325 MG DAILY P O Metolazone (metOLazone) 5 MG DAILY PO Polyethylene Glycol (MIRALAX) 17 GM DAILY PO Atorvastatin Calcium (LIPITOR) 40 MG 2100 PO Docusate Sodium (DOCUSATE SODIUM) 100 MG BID PO Metoprolol Tartrate (LOPRESSOR) 12.5 MG Q12HR PO Senna (SENOKOT) 17.6 MG BEDTIME PO Amiodarone HCl (CORDARONE) 200 MG TID PO Acetaminophen (TYLENOL) 650 MG Q4H PRN PRN PO Tramadol HCl (ULTRAM) 25 MG Q4H PRN PRN PO Tramadol HCl (ULTRAM) 50 MG Q4H PRN PRN PO Insulin Human Regular (HumuLIN R) 100 UNIT ASDIR IV (CKD) Sodium Chloride (SODIUM CHLORIDE 0.9%) 99 ML Acetylcysteine (MUCOMYST FOR RT) 200 MG RTQ6H NE B Albuterol/Ipratropium (DUONEB) 3 ML RTQ6H NEB Bisacodyl (DULCOLAX) 10 MG ONCE PRN RECTAL Dopamine HCl/Dextrose (DOPamine 400MG/D5W 250ML) 250 ML ASDIR IV Milrinone Lactate/Dextrose (MILRINONE 20MG/D5W 1 00ML) 100 ML ASDIR IV ( CKD) Vasopressin (VASOSTRICT 20 Unit/NS 100ML) 100 ML ASDIR IV (CKD) Acetaminophen (TYLENOL) 650 MG Q4H PRN PRN RECTA L Calcium Chloride (CALCIUM CHLORIDE) 1 GM ASDIR P RN IV Dextrose/Water (DEXTROSE 10% IN WATER) 125 ML DIR PRN IV (CKD) Dextrose/Water (DEXTROSE 10% IN WATER) 250 ML DIR PRN IV (CKD) Glucagon (GLUCAGON) 1 MG ASDIR PRN IM Magnesium Sulfate (MAGNESIUM SULFATE 4GM/SWFI 10 0ML) 100 ML ASDIR PRN IV Magnesium Sulfate (MAGNESIUM SULFATE 2GM/SWFI 50 ML) 50 ML ASDIR PRN IV Magnesium Sulfate/Dextrose (MAGNESIUM SULFATE 1G M/D5W 100ML) 100 ML ASDIR PRN IV Nitroglycerin/Dextrose (NITROGLYCERIN 50,000MCG/ D5W 250ML) 250 ML ASDIR IV Norepinephrine Bitartrate (NOREPINEPHRINE 8 MG/N S 250 ML) 250 ML TITRATE IV Potassium Chloride (KCL 20MEQ/SWFI 100ML) 100 ML ASDIR PRN IV Sodium Bicarbonate (SODIUM BICARBONATE) 50 MEQ A SDIR PRN IV Ondansetron HCl (ZOFRAN) 4 MG Q6H PRN PRN IV Functional Progress Functional progress: Weightbearing: No Restriction Ambulation Distance: 35FT X2 Progression: Forward Assistance Level: Moderate Assistance Gait Deviations: Shuffling SHORT STEPS [facility] Mobility: No Document Pain/Education: No Advanced Progression: No Effects of Treatment: Tolerance increased Function Improved Gait quality improved [place] of care decreased Post [place] Precautions: In Bed, rails Up Call Light in Reach Nursing Notified O2 on Pulse OX in Place Family/Sitter at Bedside Review Plan of Care: Yes PT charges: Gait Training [id number] Gait Cmt: Pt IN RECLINER UPON ARRIVAL. Pt IS DE PENDENT 2 PERSON ASSIST WITH SIT TO STAND AND MOD A WITH GAIT. Pt AMBULATED 35FT X2 WITH ONE SITTING BREAK DUE TO FATIGUE. VS STABLE. Pt RETURNED TO ROOM LAYING IN BED. Pt IS DEPENDENT 2 PERSON ASSIST WITH SIT TO SUPINE. NEED ASSIST WITH TRUNK AND LEs. ALL NEEDS ARE MET. SWITCHED FROM HIGH FLOW NC TO CPAP IN BED. FAMILY IN THE ROOM. NURSE AWARE . Physical Exam General appearance: alert, awake Psych: alert, oriented x 3 HEENT: anicteric, mucosal membranes moist Neck: supple, no JVD Cardiovascular: regular rate rhythm, no murmur Respiratory: diminished breath sounds (bases ), on oxygen (Hi flow O2 ) Abdomen: bowel sounds present, non-distended, so ft, non-tender Skin: dry, intact, no rash, incisions D/I Musculoskeletal - general: Musculoskeletal - general: swelling (BLE +3), m oving all ext AG 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, 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, normal speech, n o motor deficits, no sensory deficits Results Findings/Data: Laboratory Tests: 12/27 12/27 12/27 12/27 0542 0239 0238 0152 Blood Gas Puncture Site Art Line O2 Saturation (90 - 100 %) 95.8 ABG pH (7.35 - 7.45) 7.388 ABG pCO2 (35.0 - 45 mmHg) 70.2 *H ABG pO2 (80 - 100.0 mmHg) 85.6 ABG PO2/FiO2 Ratio (mm/Hg) 171.20 ABG HCO3 (22.0 - 26.0 MMOL/L) 42.4 *H ABG Total CO2 44.5 ABG Base Excess (-4.0 - 4.0 MMOL/L) 17.4 H ABG Hematocrit (33.0 - 45.0 %) 24 L ABG Hemoglobin (11.0 - 15.0 G/DL) 8.2 L Sodium (134 - 147 MEQ/L) 145 Potassium (3.4 - 5.0 MEQ/L) 3.2 L Chloride (100 - 108 MEQ/L) 98 L Ionized Calcium (1.12 - 1.32 MMOL/L) 1.36 H Lactic Acid (0.9 - 1.7 mmol/l) 0.6 L Temperature (F) 98.4 O2 Delivery Device BiPAP FiO2 (%) 50 PEEP (cmH2O) 5 Chemistry Sodium (134 - 147 mEq/L) 148 H Potassium (3.4 - 5.0 mEq/L) 3.5 Chloride (100 - 108 mEq/L) 101 Carbon Dioxide (21 - 33 mEq/l) 38 H Anion Gap (0 - 20) 13 BUN (7 - 18 mg/dL) 49 H Creatinine (0.6 - 1.3 mg/dL) 0.9 POC Creatinine (0.6 - 1.0 mg/dL) 1.0 Glomerular Filtr Rate (70 - 80) 60.6 L Glucose (70 - 110 mg/dL) 101 POC Glucose (70 - 110 MG/DL) 203 H 86 POC Glucose (mg/dL) (70 - 110 MG/DL) 95 Calcium (8.0 - 10.5 mg/dL) 9.9 Magnesium (1.80 - 2.40 mg/dL) 2.20 Hematology WBC (4.5 - 11.0 x10 3/uL) 8.4 RBC (3.54 - 5.02 x10 6/uL) 2.26 L Hgb (11.0 - 15.0 g/dL) 7.7 L Hct (33.0 - 45.0 %) 24.7 L MCV (81.0 - 99.0 fL) 109.3 H MCH (27.0 - 33.0 pg) 34.1 H MCHC (33.0 - 37.0 g/dL) 31.2 L RDW (11.5 - 14.5 %) 15.9 H Plt Count (150 - 400 x10 3/uL) 184 MPV (7.0 - 9.0 fL) 11.2 H Neut % (Auto) (56.0 - 77.0 %) 78.4 H Lymph % (Auto) (14.0 - 32.0 %) 5.2 L Barron % (Auto) (4.8 - 9.0 %) 12.6 H Eos % (Auto) (0.3 - 3.7 %) 1.3 Baso % (Auto) (0.0 - 2.0 %) 0.1 Neut # (Auto) (2.0 - 7.6 x10 3/uL) 6.57 Lymph # (Auto) (1.0 - 3.8 x10 3/uL) 0.44 L Barron # (Auto) (0.1 - 0.8 x10 3/uL) 1.06 H Eos # (Auto) (0.0 - 0.2 x10 3/uL) 0.11 Baso # (Auto) (0.0 - 0.2 x10 3/uL) 0.01 Abs Immat Gran (auto) (0.00 - 0.03 x10 3/uL) 0. 20 H Add Manual Diff NO Immature Gran % (0.0 - 2.0 %) 2.4 H Nucleated RBC % (0 - 0 %) 1.5 H Nucleated RBCs # (Man) (0.0 - 0.1 x10 3/uL) 0.1 3 H 12/27 12/26 12/26 12/26 12/26 0021 2207 1954 1748 1735 Chemistry Sodium (134 - 147 mEq/L) 144 Potassium (3.4 - 5.0 mEq/L) 3.8 Chloride (100 - 108 mEq/L) 101 Carbon Dioxide (21 - 33 mEq/l) 38 H Anion Gap (0 - 20) 9 BUN (7 - 18 mg/dL) 54 H Creatinine (0.6 - 1.3 mg/dL) 1.0 Glomerular Filtr Rate (70 - 80) 53.6 L Glucose (70 - 110 mg/dL) 287 H POC Glucose (70 - 110 MG/DL) 72 148 H 232 H 283 H Calcium (8.0 - 10.5 mg/dL) 9.8 Phosphorus (2.5 - 4.9 MG/DL) 3.0 Magnesium (1.80 - 2.40 mg/dL) 2.30 12/26 12/26 12/26 12/26 1242 1242 1132 0945 Blood Gas Puncture Site Art Line Art Line O2 Saturation (90 - 100 %) 98.6 97.2 ABG pH (7.35 - 7.45) 7.356 7.364 ABG pCO2 (35.0 - 45 mmHg) 69.2 *H 68.3 *H ABG pO2 (80 - 100.0 mmHg) 128.4 H 100.9 H ABG PO2/FiO2 Ratio (mm/Hg) 201.80 ABG HCO3 (22.0 - 26.0 MMOL/L) 38.8 *H 39.0 *H ABG Total CO2 40.9 41.1 ABG Base Excess (-4.0 - 4.0 MMOL/L) 13.2 H 13. 6 H ABG Hematocrit (33.0 - 45.0 %) 25 L 23 L ABG Hemoglobin (11.0 - 15.0 G/DL) 8.6 L 7.9 L Sodium (134 - 147 MEQ/L) 145 146 Potassium (3.4 - 5.0 MEQ/L) 3.8 3.7 Chloride (100 - 108 MEQ/L) 99 L 98 L Ionized Calcium (1.12 - 1.32 MMOL/L) 1.37 H 1.3 8 H Lactic Acid (0.9 - 1.7 mmol/l) 0.7 L 0.6 L O2 Delivery Device HFNC BiPAP FiO2 (%) 50 Chemistry Sodium (134 - 147 mEq/L) 144 Potassium (3.4 - 5.0 mEq/L) 3.9 Chloride (100 - 108 mEq/L) 101 Carbon Dioxide (21 - 33 mEq/l) 39 H Anion Gap (0 - 20) 8 BUN (7 - 18 mg/dL) 55 H Creatinine (0.6 - 1.3 mg/dL) 0.9 POC Creatinine (0.6 - 1.0 mg/dL) 1.0 1.0 Glomerular Filtr Rate (70 - 80) 60.6 L Glucose (70 - 110 mg/dL) 207 H POC Glucose (70 - 110 MG/DL) 185 H POC Glucose (mg/dL) (70 - 110 MG/DL) 203 H 194 H Calcium (8.0 - 10.5 mg/dL) 10.1 Ionized Calcium Gigi (1.09 - 1.30 MMOL/L) 1.22 Magnesium (1.80 - 2.40 mg/dL) 2.43 H Diagnosis, Assessment Plan Free Text A P: 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 fib Hypoxic respiratory failure Plan: Continue PT/OT Out of bed to chair Work on strength, bed mobility, transfers, gait Increase endurance Fall precautions Monitor p.o. intake and nutrition Strict decubitus precautions Monitor anemia Advance therapies as tolerated Pt currently on TPN On BIPAP VS [place]if[place] Diuresising increased - monitor strict I Os Monitor patient in CVICU Will eventually need IRF when medically ready. TT: 34 mins, reviewing chart, notes, labs, meds, therapy notes, discussed medical mgt, and rehab poc, goals. Answered all questions Rehab attestation: . Electronically Signed by Herberth Pantoja on at [address] [facility] #:[id number] END OF REPORT 2021-12-26 22:49:00-00:00 [facility] ([facility]) Nephrology Progress Note REPORT#:[id number] REPORT STATUS: Signed DATE:12/26/21 TIME: 2248 PATIENT: SAÚL GILES UNIT #: [id number] ROOM/BED: [place] [id number] : 43 AGE: 76 SEX: F ATTEND: Leah More MD ADM AUTHOR: Suki Fuchs MD * ALL edits or amendments must be made on the [employer]/computer document * Subjective Chief complaint: chest pain HPI: This is a 76-year-old female who has past medica l history of hypertension, diabetes, coronary artery disease, atrial fibril lation who presented with worsening shortness of breath and on further wor k-up was 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 She was with normal kidney function prior to surgery and afte r her surgery she began to develop oliguria. Her procedure was done without any complications but after her surgery she did require pressor support for hypotension and she was intubated for respiratory acidosis and hypoxia a nd she was treated with vancomycin for infection treatment. When she was seen this morning she continued to have hypotension and her heart rate was paced by her permanent pacemaker and her urine outp ut was 20 to 30/h. Her family at bedside denied any history of kidney disease, kidney stone, chronic NSAID use or any urinary complaints. They also endorse that her b lood pressure and diabetes were mostly controlled. 12/26 Appearing comfortable, not in any distress,on ox ygen support today. Objective General VS/I O: Vital Signs: Date Time Temp Pulse Resp B/P B/P Pulse O2 O2 F low FiO2 Mean Ox Delivery Rate 12/262 69 98 40 12/27 1999 Nasal 7 cannula 12/27 1999 36.7 75 97 Nasal 7 cannula 10/14 1956 95 High flow 7 nasal cannula /14 1908 36.7 74 43 159/57 88 96 10/14 1900 36.7 70 37 158/57 87 95 10/14 1800 36.7 72 37 157/56 84 98 10/14 1700 36.6 75 29 158/54 83 94 /14 1652 36.5 71 24 155/51 80 97 10/14 1600 36.5 73 36 149/52 80 93 10/14 1500 36.5 75 27 168/66 99 99 10/14 1445 36.5 75 33 157/58 90 99 10/14 1432 99 High flow 7 nasal cannula /14 1400 36.4 71 27 140/48 75 97 10/14 1300 69 24 154/50 78 95 10/14 1200 36.5 72 25 160/70 101 100 10/14 1105 75 100 10/14 1100 36.5 75 16 125/51 72 100 10/14 1000 72 25 100 10/14 0931 120/56 81 10/14 0931 36.3 75 26 132/51 74 100 10/14 0900 128/63 90 10/14 0900 36.3 74 31 136/44 70 100 10/14 0831 117/60 79 10/14 0831 36.3 70 31 151/52 82 99 10/14 0801 146/65 93 10/14 0801 36.4 73 26 160/56 88 96 10/14 0800 BiPAP 10/14 0800 36.4 75 30 149/55 86 96 10/14 0747 77 100 10/14 0747 100 BiPAP 40 10/14 0710 36.4 72 26 168/64 99 100 10/14 0700 36.5 72 27 147/52 80 91 10/14 0630 96/53 69 10/14 0630 36.5 75 16 102/42 59 100 10/14 0601 96/55 73 10/14 0601 36.5 73 15 102/41 57 100 10/14 0600 36.5 73 13 106/41 58 100 10/14 0545 36.5 72 19 130/47 70 100 10/14 0538 117/75 91 10/14 0538 73 21 143/51 78 100 10/14 0500 159/67 97 10/14 0500 36.4 71 29 160/62 96 100 10/14 0430 151/69 99 10/14 0430 36.4 70 20 163/60 90 100 12/26 0400 163/76 109 12/26 0400 36.6 72 47 173/64 97 100 12/26 0350 69 100 50 12/26 0330 163/71 102 12/26 0330 36.7 70 22 178/66 100 97 12/26 0300 170/72 104 12/26 0300 36.8 73 24 184/70 108 96 12/26 0231 177/81 117 12/26 0231 36.9 71 30 173/67 102 97 12/26 0200 104/51 74 / 0200 37.0 69 16 100/43 57 100 12/26 0131 112/54 78 12/26 0131 36.9 71 16 107/44 60 100 12/26 0101 161/71 102 12/26 0101 36.8 72 33 169/70 104 98 12/26 0100 36.8 72 28 176/70 104 97 12/26 0031 183/76 109 12/26 0031 36.8 70 26 181/67 103 95 12/26 0012 72 98 50 12/26 0000 150/75 105 12/26 0000 36.9 69 23 158/63 93 100 12/25 2330 95/52 70 12/25 2330 36.9 75 17 93/41 54 100 12/25 2322 36.9 75 17 91/41 54 100 12/25 2305 110/55 79 12/25 2305 36.8 75 16 106/44 60 100 12/25 2300 36.8 75 14 118/45 64 100 24 hour I O ending at 0700: 12/26 0700 12/25 1900 Intake Total 790.30 971.00 Output Total 1000 1650 Balance -209.70 -679.00 Intake, IV 310.30 43.00 Intake, Lipid 64 Intake, Oral 480 Intake, Oral 720 Supplement Intake, 144 TPN/PPN Number 12 Incontinent Voids Output, Urine 1000 1650 Patient 122.7 kg Weight Weight Standing scale Measurement Method PATIENT WEIGHT: Weight (lb): 270 Weight (oz): 8.12 Weight (kg): 122.700 Physical Exam General appearance: alert, awake, oriented Head/eyes: atraumatic, normocephalic ENT: ET tube Neck: no JVD, no lymphadenopathy Cardiovascular: normal heart sounds, regular rat e and rhythm Respiratory: aerating well, clear to auscultatio n Abdomen: soft, no pulsatile mass Genitourinary: urinary catheter Extremities: pitting edema, no gangrene, no swel ling Treatment Prophylaxis Treatment Prophylaxis Drain(s)/tube(s): Drain(s)/tube(s): chest (x3) Diagnosis, Assessment Plan Free Text A P: This is a 76-year-old female known to have hyper tension, diabetes, atrial fibrillation, s/p permanent pacemaker and histor y of ablation presenting with shortness of breath and found to have multivesse l coronary artery disease therefore she had CABG on December 19 after which she has developed oliguria. Nephrology is following for: 1. Acute kidney injury: Most likely it i s prerenal (cardiorenal), she has been hypotensive postoperatively with require ment for pressor support and inotropic support. Plan is to increase inotropic support or pressor support to bring mean arterial pressure above 65 and give albumin with Lasix to see if it helps him diurese. If he does not respond to higher dose L asix with albumin then I will consider starting him on CRRT to prevent hyper v olemia. 2. Hypervolemia: Plan is to give Lasix a nd if he does not respond to start him on CRRT for extra fluid removal. 3. His electrolytes were all reviewed to be in normal range plan was to monitor and replace as needed. 4. He was receiving vancomycin so plan w as to monitor vancomycin trough levels to prevent ATN. 12/21 1. Acute kidney injury: Most likely it i s prerenal (cardiorenal), she has been hypotensive postoperatively with require ment for pressor support and inotropic support. She responded to Lasix after her blood pressure improved with higher dose vasopressin and she was given albumin. Plan was to continue twice a day Lasix and albumin for hypervolemia. 2. Hypervolemia: Plan is to give Lasix with albu min twice daily and increase dose if needed. 3. His electrolytes were all reviewed to be in normal range plan was to monitor and replace as needed. 4. He was receiving vancomycin so plan w as to monitor vancomycin trough levels to prevent ATN. 12/22 1. Acute kidney injury: Most likely it i s prerenal (cardiorenal), she has been hypotensive postoperatively with require ment for pressor support and inotropic support. She responded to Lasix after her blood pressure improved with higher dose vasopressin and she was given albumin. Plan was to continue Lasix and albumin for hypervolemia.Plan to increase dose t o reach goal of 1 L negative Q12H. 2. Hypervolemia: Plan is to give Lasix with albu min and increase dose if needed. 3. His electrolytes were all reviewed to be in normal range plan was to monitor and replace as needed. 4. He was receiving vancomycin so plan w as to monitor vancomycin trough levels to prevent ATN. 12/23 1. Acute kidney injury: Most likely it i s prerenal (cardiorenal), she has been hypotensive postoperatively with require ment for pressor support and inotropic support. She responded to Lasix after her blood pressure improved with higher dose vasopressin and she was given albumin. Plan was to continue Lasix and albumin for hypervolemia.Plan to increase dose t o reach goal of 1 L negative Q12H. 2. Hypervolemia: Plan is to give Lasix with albu min and increase dose if needed. 3. Her electrolytes were all reviewed to be in n ormal range plan was to monitor and replace as needed. 4. She was receiving vancomy sanjana so plan was to monitor vancomycin trough levels to prevent ATN. 5/ Metabolic alkalosis secondary to diur etics : Plan to give acetazoleamide if worsening. 12/24 1. Acute kidney injury: Resolved, she is respond ing to lasix. 2. Hypervolemia: Plan to continue lasix as rhys ated. 3. Her electrolytes were all reviewed to be in n ormal range plan was to monitor and replace as needed. 4. She was receiving vancomy sanjana so plan was to monitor vancomycin trough levels to prevent ATN. 5/ Metabolic alkalosis secondary to diur etics : Plan to give acetazoleamide if worsening. 12/25 1. Acute kidney injury: Resolved, she is respond ing to lasix. 2. Hypervolemia: Plan to continue lasix as rhys ated.Today it was held for metabolic alkalosis. 3. Her electrolytes were all reviewed to be in n ormal range plan was to monitor and replace as needed. 4. She was receiving vancomy sanjana so plan was to monitor vancomycin trough levels to prevent ATN. 5/ Metabolic alkalosis secondary to diur etics : Plan to give acetazoleamide if worsening. 12/26 1. Acute kidney injury: Resolved, she is respond ing to lasix. 2. Hypervolemia: Plan to continue lasix as tolerated.Today she was on low dose drip. 3. Her electrolytes were all reviewed to be in n ormal range plan was to monitor and replace as needed. 4. She was receiving vancomy sanjana so plan was to monitor vancomycin trough levels to prevent ATN. 5/ Metabolic alkalosis secondary to diur etics : Plan to give acetazoleamide if worsening. Consultants: cardiology, cardiovascular surgery Electronically Signed by Suki Fuchs MD on at 2251 RPT #:[id number] END OF REPORT 2021-12-26 16:37:00-00:00 [facility] Cardiothoracic Surgery Prog REPORT#:[id number] REPORT STATUS: Signed DATE:12/26/21 TIME: 1637 PATIENT: SAÚL GILES UNIT #: [id number] ROOM/BED: [place] [id number] : 43 AGE: 76 SEX: F ATTEND: Leah More MD ADM AUTHOR: Tj Bonner MD * ALL edits or amendments must be made on the [employer]/computer document * General Post-op: day 7 Status post: 1. Mitral valve replacement (31 Magna valve). 2. Coronary artery bypass graft surgery x1 (GOMES A to LAD). 3. Isolation of left atrial appendage. 4. Pericardiectomy. Subjective Chief complaint: Shortness of breath Review of Systems Constitutional: Denies: fever, malaise. Allergy/Immun: Denies: allergic reaction. ENT: Denies: sore throat. Respiratory: Denies: SOB. GI: Denies: abdominal pain. Heme: Denies: bleeding. Neuro: Denies: focal weakness, headache. All systems rev neg: except as marked Objective General VS/I O Last Documented: Result Date Time Pulse Ox 99 12/26 1445 B/P 157/58 12/26 1445 B/P Mean 90 12/26 144 Temp 36.5 12/26 144 Pulse 75 12/26 144 Resp 33 12/26 1445 O2 Delivery High flow nasal cannula 12/26 1432 O2 Flow Rate 7 12/26 1432 FiO2 40 12/26 0747 24 hour I O ending at 0700: 12/26 0700 12/25 1900 Intake Total 790.30 971.00 Output Total 1000 1650 Balance -209.70 -679.00 Intake, IV 310.30 43.00 Intake, Lipid 64 Intake, Oral 480 Intake, Oral 720 Supplement Intake, 144 TPN/PPN Number 12 Incontinent Voids Output, Urine 1000 1650 Patient 122.7 kg Weight Weight Standing scale Measurement Method PATIENT WEIGHT: Weight (lb): 270 Weight (oz): 8.12 Weight (kg): 122.700 Dietitian Nutrition assessment The data set between the solid lines has been im ported from the dietitian's assessment. BMI Calculated: 46.4 Nutrition related diagnosis: Morbid obesity Nutrition diagnosis details: BMI 40 or more Nutrition problem: Increased nutrient needs Nutrition etiology: Chronic disease Nutrition signs and symptoms: S/P CABG Nutrition prescription: 1. C ONTINUE REGULAR DIET TO LIBERALIZE FOOD CHOICES AND HELP INCREASE PO INTAKE. 2. PROVIDE GLUCERNA 4 PER DAY. 3. MONITOR PO, WT, LABS, BM. 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, 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, normal speech Skin: dry, intact, normal temperature Psychiatry: normal affect, normal mood Current Medications Medications: Active Meds + DC'd Last 24 Hrs Sodium Chloride (SODIUM CHLORIDE) 4 ML RTBID NEB Sodium Chloride (SODIUM CHLORIDE) 10 ML BID IV Acetazolamide (DIAMOX) 250 MG ONCE ONE IV Sterile Water (WATER FOR INJECTION) 5 ML ASDIR P RN IV Insulin Glargine (Lantus/Semglee) 10 UNIT DAILY SUBQ Lidocaine HCl (LIDOCAINE 1% 5ML) 5 ML ONCE ONE L OCAL (DC) Sodium Chloride (SODIUM CHLORIDE) 10 ML ASDIR NE N IV Furosemide (LASIX) 240 MG Q24H IV (CKD) IV Miscellaneous Supplies (CONTAINER, BAG) 1 EA CH Acetazolamide (DIAMOX) 250 MG ONCE ONE IV (DC) Sterile Water (WATER FOR INJECTION) 5 ML ASDIR P RN IV (DC) Potassium Phos/Sodium Phos (NEUTRA-PHOS) 1 UDPKT TID PO (DC) Sterile Water (WATER FOR INJECTION) 5 ML ASDIR P RN IV (DC) Pantoprazole (PROTONIX) 40 MG DAILY PO Furosemide (LASIX 40 mg/4 mL INJECTION) 40 MG Q8 H IV (DC) Dexmedetomidine/Sodium Chloride (PRECEDEX 1000MC G/NS 250ML) 250 ML ASDIR IV Amino Acids/Electrolytes/Dextrose (TPN ADULT- CE NTRAL 2000ML) 1,080 ML 2200 IV (DC) Bisacodyl (DULCOLAX) 10 MG DAILY PRN PRN RECTAL Lactulose (LACTULOSE) 20 GM DAILY PRN PRN PO Magnesium Hydroxide (MILK OF MAGNESIA) 30 ML PETER LY PRN PRN PO Aspirin (ASPIRIN) 81 MG DAILY PO Clopidogrel Bisulfate (Plavix) 75 MG DAILY PO Cyanocobalamin (Vitamin B-12 500 mcg tab) 500 MC G DAILY PO Ferrous Sulfate (FERROUS SULFATE) 325 MG DAILY P O Metolazone (metOLazone) 5 MG DAILY PO Polyethylene Glycol (MIRALAX) 17 GM DAILY PO Fat Emulsion (FAT EMULSION 20% (INTRALIPID)) 250 ML 2200 IV (DC) Atorvastatin Calcium (LIPITOR) 40 MG 2100 PO Docusate Sodium (DOCUSATE SODIUM) 100 MG BID PO Metoprolol Tartrate (LOPRESSOR) 12.5 MG Q12HR PO Senna (SENOKOT) 17.6 MG BEDTIME PO Amiodarone HCl (CORDARONE) 200 MG TID PO Acetaminophen (TYLENOL) 650 MG Q4H PRN PRN PO Tramadol HCl (ULTRAM) 25 MG Q4H PRN PRN PO Tramadol HCl (ULTRAM) 50 MG Q4H PRN PRN PO Insulin Human Regular (HumuLIN R) 100 UNIT ASDIR IV (CKD) Sodium Chloride (SODIUM CHLORIDE 0.9%) 99 ML Acetylcysteine (MUCOMYST FOR RT) 200 MG RTQ6H NE B Albuterol/Ipratropium (DUONEB) 3 ML RTQ6H NEB Bisacodyl (DULCOLAX) 10 MG ONCE PRN RECTAL Dopamine HCl/Dextrose (DOPamine 400MG/D5W 250ML) 250 ML ASDIR IV Milrinone Lactate/Dextrose (MILRINONE 20MG/D5W 1 00ML) 100 ML ASDIR IV ( CKD) Vasopressin (VASOSTRICT 20 Unit/NS 100ML) 100 ML ASDIR IV (CKD) Acetaminophen (TYLENOL) 650 MG Q4H PRN PRN RECTA L Calcium Chloride (CALCIUM CHLORIDE) 1 GM ASDIR P RN IV Dextrose/Water (DEXTROSE 10% IN WATER) 125 ML DIR PRN IV (CKD) Dextrose/Water (DEXTROSE 10% IN WATER) 250 ML DIR PRN IV (CKD) Glucagon (GLUCAGON) 1 MG ASDIR PRN IM Magnesium Sulfate (MAGNESIUM SULFATE 4GM/SWFI 10 0ML) 100 ML ASDIR PRN IV Magnesium Sulfate (MAGNESIUM SULFATE 2GM/SWFI 50 ML) 50 ML ASDIR PRN IV Magnesium Sulfate/Dextrose (MAGNESIUM SULFATE 1G M/D5W 100ML) 100 ML ASDIR PRN IV Nitroglycerin/Dextrose (NITROGLYCERIN 50,000MCG/ D5W 250ML) 250 ML ASDIR IV Norepinephrine Bitartrate (NOREPINEPHRINE 8 MG/N S 250 ML) 250 ML TITRATE IV Potassium Chloride (KCL 20MEQ/SWFI 100ML) 100 ML ASDIR PRN IV Sodium Bicarbonate (SODIUM BICARBONATE) 50 MEQ A SDIR PRN IV Ondansetron HCl (ZOFRAN) 4 MG Q6H PRN PRN IV Results Findings/Data: Laboratory Tests 12/26 12/26 12/26 12/25 1922 [id number] 2015 Blood Gas Puncture Site Art Line Art Line L Radial Art Li ne O2 Saturation (90 - 100 %) 98.6 97.2 96.8 96.1 ABG pH (7.35 - 7.45) 7.356 7.364 7.421 7.378 ABG pCO2 (35.0 - 45 mmHg) 69.2 *H 68.3 *H 63.7 *H 64.8 *H ABG pO2 (80 - 100.0 mmHg) 128.4 H 100.9 H 89.6 86.4 ABG PO2/FiO2 Ratio (mm/Hg) 201.80 179.20 ABG HCO3 (22.0 - 26.0 MMOL/L) 38.8 *H 39.0 *H 41.5 *H 38.3 *H ABG Total CO2 40.9 41.1 43.5 40.3 ABG Base Excess (-4.0 - 4.0 MMOL/L) 13.2 H 13.6 H 17.0 H 13.1 H ABG Hematocrit (33.0 - 45.0 %) 25 L 23 L 25 L 2 4 L ABG Hemoglobin (11.0 - 15.0 G/DL) 8.6 L 7.9 L 8 .6 L 8.2 L Martin Test N/A Sodium (134 - 147 MEQ/L) 145 146 144 142 Potassium (3.4 - 5.0 MEQ/L) 3.8 3.7 3.7 3.5 Chloride (100 - 108 MEQ/L) 99 L 98 L 99 L 98 L Ionized Calcium (1.12 - 1.32 MMOL/L) 1.37 H 1.3 8 H 1.31 1.32 Lactic Acid (0.9 - 1.7 mmol/l) 0.7 L 0.6 L 0.6 L 0.7 L Temperature (F) 98.1 97.9 O2 Delivery Device HFNC BiPAP BiPAP HFNC Vent Rate (/MIN) 26 FiO2 (%) 50 50 Laboratory Tests 12/26 12/26 12/26 12/26 12/26 1242 1242 1134 0918 0543 Chemistry Sodium (134 - 147 mEq/L) 144 Potassium (3.4 - 5.0 mEq/L) 3.9 Chloride (100 - 108 mEq/L) 101 Carbon Dioxide (21 - 33 mEq/l) 39 H Anion Gap (0 - 20) 8 BUN (7 - 18 mg/dL) 55 H Creatinine (0.6 - 1.3 mg/dL) 0.9 POC Creatinine (0.6 - 1.0 mg/dL) 1.0 1.0 Glomerular Filtr Rate (70 - 80) 60.6 L Glucose (70 - 110 mg/dL) 207 H POC Glucose (70 - 110 MG/DL) 185 H 168 H POC Glucose (mg/dL) (70 - 110 MG/DL) 203 H 194 H Calcium (8.0 - 10.5 mg/dL) 10.1 Ionized Calcium Gigi (1.09 - 1.30 MMOL/L) 1.22 Magnesium (1.80 - 2.40 mg/dL) 2.43 H 12/26 Chemistry Sodium (134 - 147 mEq/L) 145 145 Potassium (3.4 - 5.0 mEq/L) 3.9 3.6 Chloride (100 - 108 mEq/L) 101 101 Carbon Dioxide (21 - 33 mEq/l) 38 H 38 H Anion Gap (0 - 20) 10 9 BUN (7 - 18 mg/dL) 58 H 57 H Creatinine (0.6 - 1.3 mg/dL) 1.0 1.0 POC Creatinine (0.6 - 1.0 mg/dL) 1.2 H 1.0 Glomerular Filtr Rate (70 - 80) 53.6 L 53.6 L Glucose (70 - 110 mg/dL) 200 H 235 H POC Glucose (70 - 110 MG/DL) 181 H POC Glucose (mg/dL) (70 - 110 MG/DL) 189 H 221 H Calcium (8.0 - 10.5 mg/dL) 10.4 10.2 Phosphorus (2.5 - 4.9 MG/DL) 2.8 Magnesium (1.80 - 2.40 mg/dL) 2.34 2.16 12/25 1821 Chemistry POC Glucose (70 - 110 MG/DL) 235 H Laboratory Tests 12/26 0332 Hematology WBC (4.5 - 11.0 x10 3/uL) 6.9 RBC (3.54 - 5.02 x10 6/uL) 2.03 L Hgb (11.0 - 15.0 g/dL) 8.0 L Hct (33.0 - 45.0 %) 22.9 L MCV (81.0 - 99.0 fL) 112.8 H MCH (27.0 - 33.0 pg) 39.4 H MCHC (33.0 - 37.0 g/dL) 34.9 RDW (11.5 - 14.5 %) 16.2 H Plt Count (150 - 400 x10 3/uL) 166 MPV (7.0 - 9.0 fL) 11.2 H Neut % (Auto) (56.0 - 77.0 %) 77.6 H Lymph % (Auto) (14.0 - 32.0 %) 4.2 L Barron % (Auto) (4.8 - 9.0 %) 12.6 H Eos % (Auto) (0.3 - 3.7 %) 1.3 Baso % (Auto) (0.0 - 2.0 %) 0.1 Neut # (Auto) (2.0 - 7.6 x10 3/uL) 5.34 Lymph # (Auto) (1.0 - 3.8 x10 3/uL) 0.29 L Barron # (Auto) (0.1 - 0.8 x10 3/uL) 0.87 H Eos # (Auto) (0.0 - 0.2 x10 3/uL) 0.09 Baso # (Auto) (0.0 - 0.2 x10 3/uL) 0.01 Abs Immat Gran (auto) (0.00 - 0.03 x10 3/uL) 0 .29 H Add Manual Diff NO Immature Gran % (0.0 - 2.0 %) 4.2 H Nucleated RBC % (0 - 0 %) 2.6 H Nucleated RBCs # (Man) (0.0 - 0.1 x10 3/uL) 0.1 8 H Radiology data: Recent Impressions: RADIOLOGY - XR CHEST 1 V 12/27 611 Report Impression - Status: SIGNED Entered: 12/26/2021 0644 IMPRESSION: 1. The right IJ central line is unchanged. Intra cardiac pacer leads are grossly unchanged. 2. There is grossly stable central pulmonary vas cular congestion. 3. Allowing for differences in lung volumes, the re is grossly no significant interval change in generalized right pulmonary opacification. 4. There are suspected bilateral pleural effusio ns. No pneumothorax is visible. Impression By: [email or web address] - Bill Prange, M.D. Results: rythm personally re v'd, x-ray personally reviewed, current med profile rev'd Treatment Prophylaxis Treatment Prophylaxis Oxygen: CPAP/BIPAP Lines: arterial, CVC, peripheral Drain(s)/tube(s): Drain(s)/tube(s): chest (x3) Quality: Trauma Gen Surg Current Medications Current medication review: Home Medications: RIVAROXABAN (XARELTO) 20 MG PO DAILY amLODIPine (NORVASC) 5 MG PO DAILY cloNIDine (CATAPRES) 0.3 MG PO BID DOXAZOSIN (CARDURA) LISINOPRIL (ZESTRIL) OLMESARTAN (BENICAR) 40 MG PO DAILY PRAVASTATIN (PRAVACHOL) FUROSEMIDE (LASIX) 10 MG PO DAILY METOLAZONE (ZAROXOLYN) 10 MG PO DAILY POTASSIUM CHLORIDE ER (MICRO-K) 10 MEQ PO DAILY OMEPRAZOLE ER 20 MG PO DAILY GLIMEPIRIDE (AMARYL) 4 MG PO DAILY INSULIN DETEMIR (LEVEMIR FlexTouch (15mL)) 50 UN ITS SUBQ BID INSULIN LISPRO (HumaLOG CARTRIDGE (15mL)) 0 UNIT S SUBQ TID LIRAGLUTIDE (VICTOZA (6mL)) 1.8 MG SUBQ DAILY metFORMIN (GLUCOPHAGE) 1,000 MG PO BID ADALIMUMAB + SUPPLIES (HUMIRA PREFILLED PEN) 40 MG SUBQ Q14D azaTHIOprine (IMURAN) 50 MG PO DAILY I attest that the foregoing medication list in t he medical record is true, accurate, and complete to the best of my knowled ge. Diagnosis, Assessment Plan Hospital course to date: This very pleasant 76-year-old female, from [facility], with past medical history of macular d egeneration, obesity, obstructive sleep apnea (CPAP at home), former smoker, hyp ertension, hyperlipidemia, diabetes, Crohn's disease , chronic atrial fibrillatio n status post 3 ablations in the past (on Xarelto), pacemaker placement who had a recent admission t o the hospital with heart failure symptoms. She has be en admitted to the hospital today for elective heart cath. Coronary angiogram showed severe multivess el coronary artery disease suitable for percutaneous intervention. CV surge ry called for evaluation. PLAN Patient has severe coronary artery disease and c onstrictive pericarditis. She will benefit from off-pump L CHAD to LAD and pericardiotomy. Dr. Romero explained to the patient the surgery, risks involv ed, STS score, benefits, complications and alternatives. She acknowledged understanding and is willing to proceed Preop work-up has been initiated We will tentatively schedule patient for surgery tomorrow. 12/18 Preop assessment ongoing No carotid stenosis on ultrasound CT chest reviewed with Dr. Romero Surgery rescheduled for tomorrow NPO after midnight Plan discussed with the patient 12/20 POD 1 Patient hemodynamically stable, cardiac index 3. 1 Required Bipap after extubation yesterday and ov ernight Trend ABGs- wean bipap as tolerated Decrease milrinone drip to 0.125, and continue v asopressin at 0.02 Urine output marginal- dopamine drip started at 3 Creatinine increased to 1.4, monitor strict I an d O's Encourage po intake, incentive spirometer use Try to get patient out of bed to chair today PT/OT Monitor patient closely in the CVICU 12/22/21 POD3 d/c chest tubes need to diuresis agressively 40 q12 edema needs legs elevated cxr appears wet d/c swan TPN due to bipap teleflex today keep TPN for now 12/23 POD 4 Labs and cxr reviewed Increase diuresis- monitor strict I Os Continue TPN On teleflex 60L 70%- wean as tolerated Monitor patient in CVICU 12/25/21 POD 6 back on bipap if reintubate consider trach still on TPN if trach consider PEG 12/26/21 POD 7 contiune bipap support alt with teleflex if reintubate will need trach and peg continue hyperal Consultants: cardiology, cardiovascular surgery Electronically Signed by Tj Bonner MD on 12/13 07/04 at 1639 RPT #:[id number] END OF REPORT 2021-12-26 14:28:00-00:[address] [facility] ([facility]) Critical Care Progress Note REPORT#:[id number] REPORT STATUS: Signed DATE:12/26/21 TIME: 1428 PATIENT: SAÚL GILES UNIT #: [id number] ROOM/BED: [place] [address] : 43 AGE: 76 SEX: F ATTEND: Ayala More MD ADM AUTHOR: Ricky Goodwin MD * ALL edits or amendments must be made on the [facility]/computer document * Subjective Chief complaint: CABG/MVR HPI: 76-year-old morbidly obese f emale with history of HTN, HL, IDDM, smoking, RONA on CPAP and home O2 as needed, macular degeneration , Crohn's disease on immunosuppressant medication s, and chronic Afib s/p ablation and PPM (on Xarelto ), who was admitted recently with heart failure symptoms. Patient underwent elective cardiac cath that s howed severe multivessel coronary artery disease not suitable for percutaneous intervention. 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 She went for surgical revascularization today and preop JORDEN revealed severe mitral regurgitation. After discussing new findings with family, patient underwent MVR (31 M agna valve), CABG x 1 (ROBERTS-LAD), ILAA and pericardectomy on 12/19/2021. Has EF of 45%. Crystalloid 1 L, urine output 700, Cell Saver 700. She is a-paced at [employer]. Surgery went well and patient was transferred to CVICU pos top in a stable surgical condition. She is currently intubated on 2 mics of epine phrine, 2 mics of Levophed and insulin drip. CI 3.0, SvO2 in 60%s, CVP 15 and PAP in 60s. Comments: Interval history- Patient is on the lasix drip for diuresis On Diamox too for alkalosis Objective General VS/I O Last Documented: Result Date Time Pulse Ox 100 12/26 1105 Pulse 75 12/26 1105 FiO2 40 12/26 0747 O2 Delivery BiPAP 12/26 0747 B/P 168/64 12/26 0710 B/P Mean 99 12/26 709 Temp 36.4 12/26 709 Resp 26 12/26 07 O2 Flow Rate 15 12/25 1525 24 hour I O ending at 0700: 12/26 0700 12/25 1900 Intake Total 790.30 971.00 Output Total 1000 1650 Balance -209.70 -679.00 Intake, IV 310.30 43.00 Intake, Lipid 64 Intake, Oral 480 Intake, Oral 720 Supplement Intake, 144 TPN/PPN Number 12 Incontinent Voids Output, Urine 1000 1650 Patient 122.7 kg Weight Weight Standing scale Measurement Method PATIENT WEIGHT: Weight (lb): 270 Weight (oz): 8.12 Weight (kg): 122.700 Medications: Active Meds + DC'd Last 24 Hrs Sodium Chloride (SODIUM CHLORIDE) 10 ML BID IV Acetazolamide (DIAMOX) 250 MG ONCE ONE IV Sterile Water (WATER FOR INJECTION) 5 ML ASDIR P RN IV Insulin Glargine (Lantus/Semglee) 10 UNIT DAILY SUBQ Lidocaine HCl (LIDOCAINE 1% 5ML) 5 ML ONCE ONE L OCAL (DC) Sodium Chloride (SODIUM CHLORIDE) 10 ML ASDIR NE N IV Furosemide (LASIX) 240 MG Q24H IV (CKD) IV Miscellaneous Supplies (CONTAINER, BAG) 1 EA CH Acetazolamide (DIAMOX) 250 MG ONCE ONE IV (DC) Sterile Water (WATER FOR INJECTION) 5 ML ASDIR P RN IV Potassium Phos/Sodium Phos (NEUTRA-PHOS) 1 UDPKT TID PO (DC) Acetazolamide (DIAMOX) 250 MG ONCE ONE IV (DC) Sterile Water (WATER FOR INJECTION) 5 ML ASDIR P RN IV (DC) Pantoprazole (PROTONIX) 40 MG DAILY PO Sterile Water (WATER FOR INJECTION) 5 ML ASDIR P RN IV (DC) Furosemide (LASIX 40 mg/4 mL INJECTION) 40 MG Q8 H IV (DC) Dexmedetomidine/Sodium Chloride (PRECEDEX 1000MC G/NS 250ML) 250 ML ASDIR IV Amino Acids/Electrolytes/Dextrose (TPN ADULT- CE NTRAL 2000ML) 1,080 ML 2200 IV (DC) Bisacodyl (DULCOLAX) 10 MG DAILY PRN PRN RECTAL Lactulose (LACTULOSE) 20 GM DAILY PRN PRN PO Magnesium Hydroxide (MILK OF MAGNESIA) 30 ML PETER LY PRN PRN PO Aspirin (ASPIRIN) 81 MG DAILY PO Clopidogrel Bisulfate (Plavix) 75 MG DAILY PO Cyanocobalamin (Vitamin B-12 500 mcg tab) 500 MC G DAILY PO Ferrous Sulfate (FERROUS SULFATE) 325 MG DAILY P O Metolazone (metOLazone) 5 MG DAILY PO Polyethylene Glycol (MIRALAX) 17 GM DAILY PO Fat Emulsion (FAT EMULSION 20% (INTRALIPID)) 250 ML 2200 IV (DC) Atorvastatin Calcium (LIPITOR) 40 MG 2100 PO Docusate Sodium (DOCUSATE SODIUM) 100 MG BID PO Metoprolol Tartrate (LOPRESSOR) 12.5 MG Q12HR PO Senna (SENOKOT) 17.6 MG BEDTIME PO Amiodarone HCl (CORDARONE) 200 MG TID PO Acetaminophen (TYLENOL) 650 MG Q4H PRN PRN PO Tramadol HCl (ULTRAM) 25 MG Q4H PRN PRN PO Tramadol HCl (ULTRAM) 50 MG Q4H PRN PRN PO Insulin Human Regular (HumuLIN R) 100 UNIT ASDIR IV (CKD) Sodium Chloride (SODIUM CHLORIDE 0.9%) 99 ML Acetylcysteine (MUCOMYST FOR RT) 200 MG RTQ6H N EB Albuterol/Ipratropium (DUONEB) 3 ML RTQ6H NEB Bisacodyl (DULCOLAX) 10 MG ONCE PRN RECTAL Dopamine HCl/Dextrose (DOPamine 400MG/D5W 250ML) 250 ML ASDIR IV Milrinone Lactate/Dextrose (MILRINONE 20MG/D5W 1 00ML) 100 ML ASDIR IV ( CKD) Vasopressin (VASOSTRICT 20 Unit/NS 100ML) 100 ML ASDIR IV (CKD) Acetaminophen (TYLENOL) 650 MG Q4H PRN PRN RECTA L Calcium Chloride (CALCIUM CHLORIDE) 1 GM ASDIR P RN IV Dextrose/Water (DEXTROSE 10% IN WATER) 125 ML DIR PRN IV (CKD) Dextrose/Water (DEXTROSE 10% IN WATER) 250 ML DIR PRN IV (CKD) Glucagon (GLUCAGON) 1 MG ASDIR PRN IM Magnesium Sulfate (MAGNESIUM SULFATE 4GM/SWFI 10 0ML) 100 ML ASDIR PRN IV Magnesium Sulfate (MAGNESIUM SULFATE 2GM/SWFI 50 ML) 50 ML ASDIR PRN IV Magnesium Sulfate/Dextrose (MAGNESIUM SULFATE 1G M/D5W 100ML) 100 ML ASDIR PRN IV Nitroglycerin/Dextrose (NITROGLYCERIN 50,000MCG/ D5W 250ML) 250 ML ASDIR IV Norepinephrine Bitartrate (NOREPINEPHRINE 8 MG/N S 250 ML) 250 ML TITRATE IV Potassium Chloride (KCL 20MEQ/SWFI 100ML) 100 ML ASDIR PRN IV Sodium Bicarbonate (SODIUM BICARBONATE) 50 MEQ A SDIR PRN IV Ondansetron HCl (ZOFRAN) 4 MG Q6H PRN PRN IV Results Findings/data: Laboratory Tests 12/26 12/26 12/26 12/25 1719 1947 6656 2015 Blood Gas Puncture Site Art Line Art Line L Radial Art Li ne O2 Saturation (90 - 100 %) 98.6 97.2 96.8 96.1 ABG pH (7.35 - 7.45) 7.356 7.364 7.421 7.378 ABG pCO2 (35.0 - 45 mmHg) 69.2 *H 68.3 *H 63.7 *H 64.8 *H ABG pO2 (80 - 100.0 mmHg) 128.4 H 100.9 H 89.6 86.4 ABG PO2/FiO2 Ratio (mm/Hg) 201.80 179.20 ABG HCO3 (22.0 - 26.0 MMOL/L) 38.8 *H 39.0 *H 4 1.5 *H 38.3 *H ABG Total CO2 40.9 41.1 43.5 40.3 ABG Base Excess (-4.0 - 4.0 MMOL/L) 13.2 H 13. 6 H 17.0 H 13.1 H ABG Hematocrit (33.0 - 45.0 %) 25 L 23 L 25 L 2 4 L ABG Hemoglobin (11.0 - 15.0 G/DL) 8.6 L 7.9 L 8 .6 L 8.2 L Martin Test N/A Sodium (134 - 147 MEQ/L) 145 146 144 142 Potassium (3.4 - 5.0 MEQ/L) 3.8 3.7 3.7 3.5 Chloride (100 - 108 MEQ/L) 99 L 98 L 99 L 98 L Ionized Calcium (1.12 - 1.32 MMOL/L) 1.37 H 1.3 8 H 1.31 1.32 Lactic Acid (0.9 - 1.7 mmol/l) 0.7 L 0.6 L 0.6 L 0.7 L Temperature (F) 98.1 97.9 O2 Delivery Device HFNC BiPAP BiPAP HFNC Vent Rate (/MIN) 26 FiO2 (%) 50 50 12/25 1505 Blood Gas Puncture Site Art Line O2 Saturation (90 - 100 %) 94.9 ABG pH (7.35 - 7.45) 7.364 ABG pCO2 (35.0 - 45 mmHg) 72.3 *H ABG pO2 (80 - 100.0 mmHg) 82.1 ABG HCO3 (22.0 - 26.0 MMOL/L) 41.2 *H ABG Total CO2 43.4 ABG Base Excess (-4.0 - 4.0 MMOL/L) 15.8 H ABG Hematocrit (33.0 - 45.0 %) 25 L ABG Hemoglobin (11.0 - 15.0 G/DL) 8.5 L Sodium (134 - 147 MEQ/L) 146 Potassium (3.4 - 5.0 MEQ/L) 3.7 Chloride (100 - 108 MEQ/L) 97 L Ionized Calcium (1.12 - 1.32 MMOL/L) 1.36 H Lactic Acid (0.9 - 1.7 mmol/l) 0.7 L O2 Delivery Device HFJV Laboratory Tests 12/26 12/26 12/26 12/26 12/26 1242 1242 1134 0938 0543 Chemistry Sodium (134 - 147 mEq/L) 144 Potassium (3.4 - 5.0 mEq/L) 3.9 Chloride (100 - 108 mEq/L) 101 Carbon Dioxide (21 - 33 mEq/l) 39 H Anion Gap (0 - 20) 8 BUN (7 - 18 mg/dL) 55 H Creatinine (0.6 - 1.3 mg/dL) 0.9 POC Creatinine (0.6 - 1.0 mg/dL) 1.0 1.0 Glomerular Filtr Rate (70 - 80) 60.6 L Glucose (70 - 110 mg/dL) 207 H POC Glucose (70 - 110 MG/DL) 185 H 168 H POC Glucose (mg/dL) (70 - 110 MG/DL) 203 H 194 H Calcium (8.0 - 10.5 mg/dL) 10.1 Ionized Calcium Gigi (1.09 - 1.30 1.22 MMOL/L) Magnesium (1.80 - 2.40 mg/dL) 2.43 H 12/26 12/26 12/25 12/25 12/25 0332 0328 2351 2015 2014 Chemistry Sodium (134 - 147 mEq/L) 145 145 Potassium (3.4 - 5.0 mEq/L) 3.9 3.6 Chloride (100 - 108 mEq/L) 101 101 Carbon Dioxide (21 - 33 mEq/l) 38 H 38 H Anion Gap (0 - 20) 10 9 BUN (7 - 18 mg/dL) 58 H 57 H Creatinine (0.6 - 1.3 mg/dL) 1.0 1.0 POC Creatinine (0.6 - 1.0 mg/dL) 1.2 H 1.0 Glomerular Filtr Rate (70 - 80) 53.6 L 53.6 L Glucose (70 - 110 mg/dL) 200 H 235 H POC Glucose (70 - 110 MG/DL) 181 H POC Glucose (mg/dL) (70 - 110 MG/DL) 189 H 221 H Calcium (8.0 - 10.5 mg/dL) 10.4 10.2 Phosphorus (2.5 - 4.9 MG/DL) 2.8 Magnesium (1.80 - 2.40 mg/dL) 2.34 2.16 12/25 12/25 12/25 12/25 1821 1507 1505 1500 Chemistry Sodium (134 - 147 mEq/L) 146 Potassium (3.4 - 5.0 mEq/L) 3.8 Chloride (100 - 108 mEq/L) 100 Carbon Dioxide (21 - 33 mEq/l) 40 H Anion Gap (0 - 20) 10 BUN (7 - 18 mg/dL) 60 H Creatinine (0.6 - 1.3 mg/dL) 1.0 POC Creatinine (0.6 - 1.0 mg/dL) 1.2 H Glomerular Filtr Rate (70 - 80) 53.6 L Glucose (70 - 110 mg/dL) 153 H POC Glucose (70 - 110 MG/DL) 235 H 149 H POC Glucose (mg/dL) (70 - 110 MG/DL) 161 H Calcium (8.0 - 10.5 mg/dL) 10.6 H Phosphorus (2.5 - 4.9 MG/DL) 2.9 Magnesium (1.80 - 2.40 mg/dL) 2.26 Laboratory Tests 12/26 0332 Hematology WBC (4.5 - 11.0 x10 3/uL) 6.9 RBC (3.54 - 5.02 x10 6/uL) 2.03 L Hgb (11.0 - 15.0 g/dL) 8.0 L Hct (33.0 - 45.0 %) 22.9 L MCV (81.0 - 99.0 fL) 112.8 H MCH (27.0 - 33.0 pg) 39.4 H MCHC (33.0 - 37.0 g/dL) 34.9 RDW (11.5 - 14.5 %) 16.2 H Plt Count (150 - 400 x10 3/uL) 166 MPV (7.0 - 9.0 fL) 11.2 H Neut % (Auto) (56.0 - 77.0 %) 77.6 H Lymph % (Auto) (14.0 - 32.0 %) 4.2 L Barron % (Auto) (4.8 - 9.0 %) 12.6 H Eos % (Auto) (0.3 - 3.7 %) 1.3 Baso % (Auto) (0.0 - 2.0 %) 0.1 Neut # (Auto) (2.0 - 7.6 x10 3/uL) 5.34 Lymph # (Auto) (1.0 - 3.8 x10 3/uL) 0.29 L Barron # (Auto) (0.1 - 0.8 x10 3/uL) 0.87 H Eos # (Auto) (0.0 - 0.2 x10 3/uL) 0.09 Baso # (Auto) (0.0 - 0.2 x10 3/uL) 0.01 Abs Immat Gran (auto) (0.00 - 0.03 x10 3/uL) 0. 29 H Add Manual Diff NO Immature Gran % (0.0 - 2.0 %) 4.2 H Nucleated RBC % (0 - 0 %) 2.6 H Nucleated RBCs # (Man) (0.0 - 0.1 x10 3/uL) 0.1 8 H Laboratory Tests 12/26/21 1242: [Embedded Image Not Available] 12/26/21 0332: [Embedded Image Not Available] 12/25/21 2015: [Embedded Image Not Available] 12/25/21 1500: [Embedded Image Not Available] Free Text Obj Notes Free Text Obj Notes: General appearance: elderly female in no acute d istress, interactive HEENT: atraumatic, normocephalic, moist mucosal membranes Neck: full range of motion, supple/no meningismu s Cardiovascular: S1S2 regular rate and rhythm, a- paced Respiratory: symmetric expansion, no acute respi ratory distress Abdomen: soft, obese, non-tender, no distention, no guarding Genitourinary: [place] with clear urine Extremities: pedal pulses palpable, moves all, n o clubbing, no cyanosis, LE edema Musculoskeletal: normal inspection, no muscle sp asm 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 S/P MVR (mitral valve replacement) 2. S/P CABG x 1 3. Postoperative pulmonary dysfunction after ca rdiac surgery 4. Severe mitral regurgitation 5. CAD (coronary artery disease) 6. CKD (chronic kidney disease) 7. Immunosuppressed status 8. RONA on CPAP 9. Chronic a-fib 10. Crohn disease Free text A P: 76-year-old morbidly obese f emale with history of HTN, HL, IDDM, smoking, RONA on CPAP and home O2 as needed, macular degeneration , Crohn's disease on immunosuppressant medication s, and chronic Afib s/p ablation and PPM (on Xarelto ), who was admitted recently with heart failure symptoms. Patient underwent elective cardiac cath that s howed severe multivessel coronary artery disease not suitable for percutaneous intervention. 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 She went for surgical revascularization today and preop JORDEN revealed severe mitral regurgitation. After discussing new findings with family, patient underwent MVR (31 M agna valve), CABG x 1 (ROBERTS-LAD), ILAA and pericardectomy on 12/19/2021. Has EF of 45%. Crystalloid 1 L, urine output 700, Cell Saver 700. She is a[facility]paced at [facility]. Surgery went well and patient was transferred to CVICU pos top in a stable surgical condition. She is currently intubated on 2 mics of epine phrine, 2 mics of Levophed and insulin drip. CI 3.0, SvO2 in 60%s, CVP 15 and PAP in 60s. Remains neuro intact, multimodal pain control, a void opiates Patient needs BiPAP for underlying RONA. Does use home CPAP. BiPAP /. FiO2 is down to 50%. During the day she remained on h igh flow nasal cannula 12 L. Bowel movement yesterday. Chest x-ray shows still bilateral pulmonary infi ltrates. ultraSound of the right side of the chest shows pleural effusion s mall size continue aggressive bronchodilators and Mucomyst. Chest PT. Continue beta-delma and amiodarone. Blood pres sure has remained stable. Put her on Lasix drip at 5 mg/h. Continue diures is with 24 hours. Continue Diamox for alkalosis. Renal following. Patient is on insulin drip for control of her quintana gars. Patient still has [place] for accurate ins and out s Total critical care time 45 minutes Consultants: cardiology, cardiovascular surgery Electronically Signed by Ricky Goodwin MD on 1 at 0209 RPT #:[id number] END OF REPORT 2021-12-26 13:48:00-00:00 [facility] ([facility]) Rehab Progress Note REPORT#:[id number] REPORT STATUS: Signed DATE:12/26/21 TIME: 1348 PATIENT: SAÚL GILES UNIT #: [id number] ROOM/BED: [place] [address] : 43 AGE: 76 SEX: F ATTEND: Leah More MD ADM AUTHOR: Alicia Pantoja NP * ALL edits or amendments must be made on the [employer]/computer document * Subjective Chief complaint: rehab follow-up Fatigue Still in CVICU Shortness of breath with increased activity Significant generalized weakness Bilateral lower extremity edema No GOLD/N/V/D 14 systems reviewed and negative except that me ntioned above. Objective General VS: Vital Signs: Date Time Temp Pulse Resp B/P B/P Pulse O2 O2 F low FiO2 Mean Ox Delivery Rate 12/26 1105 75 100 12/26 746 77 100 12/26 0647 100 BiPAP 40 12/26 709 97.5 72 26 168/64 99 100 12/26 699 97.7 72 27 147/52 80 91 12/26 629 96/53 69 12/26 629 97.7 75 16 102/42 59 100 12/26 0501 96/55 73 10/14 0601 97.7 73 15 102/41 57 100 10/14 0600 97.7 73 13 106/41 58 100 10/14 0545 97.7 72 19 130/47 70 100 10/14 0538 117/75 91 10/14 0538 73 21 143/51 78 100 10/14 0500 159/67 97 10/14 0500 97.5 71 29 160/62 96 100 10/14 0430 151/69 99 10/14 0430 97.5 70 20 163/60 90 100 10/14 0400 163/76 109 10/14 0400 97.9 72 47 173/64 97 100 10/14 0350 69 100 50 10/14 0330 163/71 102 10/14 0330 98.1 70 22 178/66 100 97 10/14 0300 170/72 104 10/14 0300 98.2 73 24 184/70 108 96 10/14 0231 177/81 117 10/14 0231 98.4 71 30 173/67 102 97 /14 0200 104/51 74 10/14 0200 98.6 69 16 100/43 57 100 /14 0131 112/54 78 10/14 0131 98.4 71 16 107/44 60 100 10/14 0101 161/71 102 10/14 0101 98.2 72 33 169/70 104 98 10/14 0100 98.2 72 28 176/70 104 97 10/14 0031 183/76 109 10/14 0031 98.2 70 26 181/67 103 95 10/14 0012 72 98 50 10/14 0000 150/75 105 10/14 0000 98.4 69 23 158/63 93 100 / 2330 95/52 70 10/ 2330 98.4 75 17 93/41 54 100 / 2322 98.4 75 17 91/41 54 100 / 2305 110/55 79 10/ 2305 98.2 75 16 106/44 60 100 10/13 2300 98.2 75 14 118/45 64 100 10/ 2245 98.1 75 32 166/64 100 95 / 2200 98.1 72 20 159/52 80 100 / 2145 97.9 72 23 179/56 92 100 / 2100 97.9 75 44 166/48 79 97 / 2045 97.9 74 30 176/53 87 97 12/25 2018 BiPAP 40 12/25 2018 72 98 50 12/25 2001 134/71 93 12/25 2001 97.9 76 31 173/51 83 92 12/26 1999 BiPAP 40 12/25 1945 97.9 76 31 183/54 87 95 12/25 191 191/78 112 12/25 1912 97.7 75 40 172/52 85 99 12/25 1901 191/76 109 12/25 1901 97.7 76 47 172/51 84 98 12/25 1845 97.7 75 41 172/46 80 94 12/25 1831 97.9 72 33 181/52 85 91 12/25 1801 168/125 136 12/25 1801 97.7 72 48 155/41 67 85 12/25 1800 97.7 75 44 149/37 66 74 12/25 1731 156/64 92 12/25 1731 97.5 72 24 157/41 70 99 12/25 1724 97.5 75 31 155/42 71 96 12/25 1701 97.3 12/25 1701 172/70 100 12/25 1701 72 31 150/39 67 99 12/25 1700 97.3 71 31 151/40 68 96 12/25 1631 185/75 108 12/25 1631 97.3 72 23 184/63 97 97 12/25 1601 199/74 107 12/25 1601 97.2 77 22 171/60 91 98 12/25 1600 97.2 76 29 174/63 94 97 12/25 1541 165/64 92 12/25 1541 97.2 72 26 175/62 94 96 12/25 1531 221/82 118 12/25 1531 97.2 71 29 166/69 102 88 12/25 1525 98 High flow 15 nasal cannula 12/25 1501 181/74 107 12/25 1501 97.2 73 45 174/64 96 98 12/25 1500 97.2 75 41 174/64 97 98 12/25 1434 97.2 75 43 167/60 90 97 12/25 1401 166/79 113 12/25 1401 97.2 74 28 165/59 90 92 12/25 1400 97.2 74 29 163/58 89 90 PATIENT WEIGHT: Weight (lb): 270 Weight (oz): 8.12 Weight (kg): 122.700 Medications: Active Meds + DC'd Last 24 Hrs Sodium Chloride (SODIUM CHLORIDE) 10 ML BID IV Insulin Glargine (Lantus/Semglee) 10 UNIT DAILY SUBQ Lidocaine HCl (LIDOCAINE 1% 5ML) 5 ML ONCE ONE L OCAL (DC) Sodium Chloride (SODIUM CHLORIDE) 10 ML ASDIR NE N IV Furosemide (LASIX) 240 MG Q24H IV (CKD) IV Miscellaneous Supplies (CONTAINER, BAG) 1 EA CH Acetazolamide (DIAMOX) 250 MG ONCE ONE IV (DC) Sterile Water (WATER FOR INJECTION) 5 ML ASDIR P RN IV Potassium Phos/Sodium Phos (NEUTRA-PHOS) 1 UDPKT TID PO (DC) Acetazolamide (DIAMOX) 250 MG ONCE ONE IV (DC) Sterile Water (WATER FOR INJECTION) 5 ML ASDIR P RN IV (DC) Pantoprazole (PROTONIX) 40 MG DAILY PO Sterile Water (WATER FOR INJECTION) 5 ML ASDIR P RN IV (DC) Furosemide (LASIX 40 mg/4 mL INJECTION) 40 MG Q8 H IV Dexmedetomidine/Sodium Chloride (PRECEDEX 1000MC G/NS 250ML) 250 ML ASDIR IV Amino Acids/Electrolytes/Dextrose (TPN ADULT- CE NTRAL 2000ML) 1,080 ML 2200 IV (DC) Bisacodyl (DULCOLAX) 10 MG DAILY PRN PRN RECTAL Lactulose (LACTULOSE) 20 GM DAILY PRN PRN PO Magnesium Hydroxide (MILK OF MAGNESIA) 30 ML PETER LY PRN PRN PO Aspirin (ASPIRIN) 81 MG DAILY PO Clopidogrel Bisulfate (Plavix) 75 MG DAILY PO Cyanocobalamin (Vitamin B-12 500 mcg tab) 500 MC G DAILY PO Ferrous Sulfate (FERROUS SULFATE) 325 MG DAILY P O Metolazone (metOLazone) 5 MG DAILY PO Polyethylene Glycol (MIRALAX) 17 GM DAILY PO Fat Emulsion (FAT EMULSION 20% (INTRALIPID)) 250 ML 2200 IV (DC) Atorvastatin Calcium (LIPITOR) 40 MG 2100 PO Docusate Sodium (DOCUSATE SODIUM) 100 MG BID PO Metoprolol Tartrate (LOPRESSOR) 12.5 MG Q12HR PO Senna (SENOKOT) 17.6 MG BEDTIME PO Amiodarone HCl (CORDARONE) 200 MG TID PO Acetaminophen (TYLENOL) 650 MG Q4H PRN PRN PO Tramadol HCl (ULTRAM) 25 MG Q4H PRN PRN PO Tramadol HCl (ULTRAM) 50 MG Q4H PRN PRN PO Insulin Human Regular (HumuLIN R) 100 UNIT ASDIR IV (CKD) Sodium Chloride (SODIUM CHLORIDE 0.9%) 99 ML Acetylcysteine (MUCOMYST FOR RT) 200 MG RTQ6H NE B Albuterol/Ipratropium (DUONEB) 3 ML RTQ6H NEB Bisacodyl (DULCOLAX) 10 MG ONCE PRN RECTAL Dopamine HCl/Dextrose (DOPamine 400MG/D5W 250ML) 250 ML ASDIR IV Milrinone Lactate/Dextrose (MILRINONE 20MG/D5W 1 00ML) 100 ML ASDIR IV ( CKD) Vasopressin (VASOSTRICT 20 Unit/NS 100ML) 100 ML ASDIR IV (CKD) Acetaminophen (TYLENOL) 650 MG Q4H PRN PRN RECTA L Calcium Chloride (CALCIUM CHLORIDE) 1 GM ASDIR P RN IV Dextrose/Water (DEXTROSE 10% IN WATER) 125 ML DIR PRN IV (CKD) Dextrose/Water (DEXTROSE 10% IN WATER) 250 ML DIR PRN IV (CKD) Glucagon (GLUCAGON) 1 MG ASDIR PRN IM Magnesium Sulfate (MAGNESIUM SULFATE 4GM/SWFI 10 0ML) 100 ML ASDIR PRN IV Magnesium Sulfate (MAGNESIUM SULFATE 2GM/SWFI 50 ML) 50 ML ASDIR PRN IV Magnesium Sulfate/Dextrose (MAGNESIUM SULFATE 1G M/D5W 100ML) 100 ML ASDIR PRN IV Nitroglycerin/Dextrose (NITROGLYCERIN 50,000MCG/ D5W 250ML) 250 ML ASDIR IV Norepinephrine Bitartrate (NOREPINEPHRINE 8 MG/N S 250 ML) 250 ML TITRATE IV Potassium Chloride (KCL 20MEQ/SWFI 100ML) 100 ML ASDIR PRN IV Sodium Bicarbonate (SODIUM BICARBONATE) 50 MEQ A SDIR PRN IV Ondansetron HCl (ZOFRAN) 4 MG Q6H PRN PRN IV Physical Exam General appearance: chronically ill appearing, o bese, alert, awake, oriented Psych: alert, oriented x 3 HEENT: anicteric, mucosal membranes moist Neck: supple, no JVD Cardiovascular: regular rate rhythm, no murmur Respiratory: diminished breath sounds (bases ), on oxygen (Hi flow O2 ) Abdomen: bowel sounds present, non-distended, so ft, non-tender Skin: dry, intact, no rash, incisions D/I Musculoskeletal - general: Musculoskeletal - general: swelling (BLE +3), m oving all ext AG 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, 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, normal speech, n o motor deficits, no sensory deficits Results Findings/Data: Laboratory Tests: 12/26 12/26 12/26 12/26 12/26 1242 1242 1134 0943 0255 Blood Gas Puncture Site Art Line Art Line O2 Saturation (90 - 100 %) 98.6 97.2 ABG pH (7.35 - 7.45) 7.356 7.364 ABG pCO2 (35.0 - 45 mmHg) 69.2 *H 68.3 *H ABG pO2 (80 - 100.0 mmHg) 128.4 H 100.9 H ABG PO2/FiO2 Ratio (mm/Hg) 201.80 ABG HCO3 (22.0 - 26.0 MMOL/L) 38.8 *H 39.0 *H ABG Total CO2 40.9 41.1 ABG Base Excess (-4.0 - 4.0 MMOL/L) 13.2 H 13.6 H ABG Hematocrit (33.0 - 45.0 %) 25 L 23 L ABG Hemoglobin (11.0 - 15.0 G/DL) 8.6 L 7.9 L Sodium (134 - 147 MEQ/L) 145 146 Potassium (3.4 - 5.0 MEQ/L) 3.8 3.7 Chloride (100 - 108 MEQ/L) 99 L 98 L Ionized Calcium (1.12 - 1.32 MMOL/L) 1.37 H 1.3 8 H Lactic Acid (0.9 - 1.7 mmol/l) 0.7 L 0.6 L O2 Delivery Device HFNC BiPAP FiO2 (%) 50 Chemistry Sodium (134 - 147 mEq/L) 144 Potassium (3.4 - 5.0 mEq/L) 3.9 Chloride (100 - 108 mEq/L) 101 Carbon Dioxide (21 - 33 mEq/l) 39 H Anion Gap (0 - 20) 8 BUN (7 - 18 mg/dL) 55 H Creatinine (0.6 - 1.3 mg/dL) 0.9 POC Creatinine (0.6 - 1.0 mg/dL) 1.0 1.0 Glomerular Filtr Rate (70 - 80) 60.6 L Glucose (70 - 110 mg/dL) 207 H POC Glucose (70 - 110 MG/DL) 185 H 168 H POC Glucose (mg/dL) (70 - 110 MG/DL) 203 H 194 H Calcium (8.0 - 10.5 mg/dL) 10.1 Ionized Calcium Gigi (1.09 - 1.30 1.22 MMOL/L) Magnesium (1.80 - 2.40 mg/dL) 2.43 H 12/26 12/26 12/25 12/25 0332 0327 2351 2015 Blood Gas Puncture Site L Radial Art Line O2 Saturation (90 - 100 %) 96.8 96.1 ABG pH (7.35 - 7.45) 7.421 7.378 ABG pCO2 (35.0 - 45 mmHg) 63.7 *H 64.8 *H ABG pO2 (80 - 100.0 mmHg) 89.6 86.4 ABG PO2/FiO2 Ratio (mm/Hg) 179.20 ABG HCO3 (22.0 - 26.0 MMOL/L) 41.5 *H 38.3 *H ABG Total CO2 43.5 40.3 ABG Base Excess (-4.0 - 4.0 MMOL/L) 17.0 H 13.1 H ABG Hematocrit (33.0 - 45.0 %) 25 L 24 L ABG Hemoglobin (11.0 - 15.0 G/DL) 8.6 L 8.2 L Martin Test N/A Sodium (134 - 147 MEQ/L) 144 142 Potassium (3.4 - 5.0 MEQ/L) 3.7 3.5 Chloride (100 - 108 MEQ/L) 99 L 98 L Ionized Calcium (1.12 - 1.32 MMOL/L) 1.31 1.32 Lactic Acid (0.9 - 1.7 mmol/l) 0.6 L 0.7 L Temperature (F) 98.1 97.9 O2 Delivery Device BiPAP HFNC Vent Rate (/MIN) 26 FiO2 (%) 50 Chemistry Sodium (134 - 147 mEq/L) 145 Potassium (3.4 - 5.0 mEq/L) 3.9 Chloride (100 - 108 mEq/L) 101 Carbon Dioxide (21 - 33 mEq/l) 38 H Anion Gap (0 - 20) 10 BUN (7 - 18 mg/dL) 58 H Creatinine (0.6 - 1.3 mg/dL) 1.0 POC Creatinine (0.6 - 1.0 mg/dL) 1.2 H 1.0 Glomerular Filtr Rate (70 - 80) 53.6 L Glucose (70 - 110 mg/dL) 200 H POC Glucose (70 - 110 MG/DL) 181 H POC Glucose (mg/dL) (70 - 110 MG/DL) 189 H 221 H Calcium (8.0 - 10.5 mg/dL) 10.4 Phosphorus (2.5 - 4.9 MG/DL) 2.8 Magnesium (1.80 - 2.40 mg/dL) 2.34 Hematology WBC (4.5 - 11.0 x10 3/uL) 6.9 RBC (3.54 - 5.02 x10 6/uL) 2.03 L Hgb (11.0 - 15.0 g/dL) 8.0 L Hct (33.0 - 45.0 %) 22.9 L MCV (81.0 - 99.0 fL) 112.8 H MCH (27.0 - 33.0 pg) 39.4 H MCHC (33.0 - 37.0 g/dL) 34.9 RDW (11.5 - 14.5 %) 16.2 H Plt Count (150 - 400 x10 3/uL) 166 MPV (7.0 - 9.0 fL) 11.2 H Neut % (Auto) (56.0 - 77.0 %) 77.6 H Lymph % (Auto) (14.0 - 32.0 %) 4.2 L Barron % (Auto) (4.8 - 9.0 %) 12.6 H Eos % (Auto) (0.3 - 3.7 %) 1.3 Baso % (Auto) (0.0 - 2.0 %) 0.1 Neut # (Auto) (2.0 - 7.6 x10 3/uL) 5.34 Lymph # (Auto) (1.0 - 3.8 x10 3/uL) 0.29 L Barron # (Auto) (0.1 - 0.8 x10 3/uL) 0.87 H Eos # (Auto) (0.0 - 0.2 x10 3/uL) 0.09 Baso # (Auto) (0.0 - 0.2 x10 3/uL) 0.01 Abs Immat Gran (auto) (0.00 - 0.03 0.29 H x10 3/uL) Add Manual Diff NO Immature Gran % (0.0 - 2.0 %) 4.2 H Nucleated RBC % (0 - 0 %) 2.6 H Nucleated RBCs # (Man) (0.0 - 0.1 0.18 H x10 3/uL) 12/25 1821 1507 1505 1500 Blood Gas Puncture Site Art Line O2 Saturation (90 - 100 %) 94.9 ABG pH (7.35 - 7.45) 7.364 ABG pCO2 (35.0 - 45 mmHg) 72.3 *H ABG pO2 (80 - 100.0 mmHg) 82.1 ABG HCO3 (22.0 - 26.0 MMOL/L) 41.2 *H ABG Total CO2 43.4 ABG Base Excess (-4.0 - 4.0 MMOL/L) 15.8 H ABG Hematocrit (33.0 - 45.0 %) 25 L ABG Hemoglobin (11.0 - 15.0 G/DL) 8.5 L Sodium (134 - 147 MEQ/L) 146 Potassium (3.4 - 5.0 MEQ/L) 3.7 Chloride (100 - 108 MEQ/L) 97 L Ionized Calcium (1.12 - 1.32 MMOL/L) 1.36 H Lactic Acid (0.9 - 1.7 mmol/l) 0.7 L O2 Delivery Device HFJV Chemistry Sodium (134 - 147 mEq/L) 145 146 Potassium (3.4 - 5.0 mEq/L) 3.6 3.8 Chloride (100 - 108 mEq/L) 101 100 Carbon Dioxide (21 - 33 mEq/l) 38 H 40 H Anion Gap (0 - 20) 9 10 BUN (7 - 18 mg/dL) 57 H 60 H Creatinine (0.6 - 1.3 mg/dL) 1.0 1.0 POC Creatinine (0.6 - 1.0 mg/dL) 1.2 H Glomerular Filtr Rate (70 - 80) 53.6 L 53.6 L Glucose (70 - 110 mg/dL) 235 H 153 H POC Glucose (70 - 110 MG/DL) 235 H 149 H POC Glucose (mg/dL) (70 - 110 MG/DL) 161 H Calcium (8.0 - 10.5 mg/dL) 10.2 10.6 H Phosphorus (2.5 - 4.9 MG/DL) 2.9 Magnesium (1.80 - 2.40 mg/dL) 2.16 2.26 Diagnosis, Assessment Plan Free Text A P: 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 fib Hypoxic respiratory failure Plan: Continue PT/OT Out of bed to chair Work on strength, bed mobility, transfers, gait Increase endurance Fall precautions Monitor p.o. intake and nutrition Strict decubitus precautions Monitor anemia Advance therapies as tolerated Pt currently on TPN On BIPAP VS Hiflow Diuresising increased - monitor strict I Os Monitor patient in CVICU Will eventually need IRF when medically ready. CLOF: 12/26/2021 Pt IN RECLINER UPON ARRIVAL. Pt IS DEPENDENT 2 PERSON ASSIST WITH SIT TO STA ND AND MOD A WITH GAIT. Pt AMBULATED 35FT X2 WITH ONE SITTING BREAK DUE TO FATIGUE. VS STABLE. Pt RETURNED TO ROOM LAYING IN BED. Pt IS DEPENDENT 2 PERSON ASSIST WITH SIT TO SUPINE. NEED ASSIST WITH TRUNK AND LEs. ALL NEED S ARE MET. SWITCHED FROM HIGH FLOW NC TO CPAP IN BED. TT;36mins, reviewing chart, notes, labs, meds, therapy notes, discussed medical mgt, and rehab poc, goals. Answered all question s Daughter at bedside educated her the role of PMR team and the possibility of the need for IPR once patient is medically stable Rehab attestation: Face to face exam completed. Treatment plan disc ussed with patient. at 1355 RPT #:[id number] END OF REPORT 2021-12-26 11:42:00-00:00 [facility] Hospitalist Progress Note REPORT#:[id number] REPORT STATUS: Signed DATE:12/26/21 TIME: 1142 PATIENT: SAÚL GILES UNIT #: [id number] ROOM/BED: 2205-1 : 43 AGE: 76 SEX: F ATTEND: Leah More MD ADM AUTHOR: Meryl Rosa MD * ALL edits or amendments must be made on the [employer]/computer document * Subjective Chief complaint: she is on bipap due to sob acute respiratory failure --post CABG HPI: 76 years old female with PMH of macular degeneration, obesity, obstructive sleep apnea (CPAP at home), former smoker, hypertensio n, hyperlipidemia, diabetes, Crohn's disease, chronic atr ial fibrillation status post 3 ablations in the past (on Xarelto), pacemaker plac ement is admitted to the hospital post cardiac cath . she need CABG . she had sob for years . sob go t worse . she was admitted to the hospital in [place] . she had cath 3 we eks ago . she was reffered to here for stents placement . she had cath yesterd ay . it show multiple vessels CAD . she is recommend CABG . she still feel sob . no cp no nausea no vomiting no fever no abdominal pain no dizziness . Review of Systems Constitutional: Denies: fatigue, fever, lethargy. Respiratory: Reports: SOB. Denies: wheezing. Cardiovascular: Reports: DOUGLASS (dyspnea on exertion), edema. Denie s: orthopnea, palpitations. GI: Denies: nausea, vomiting. Neuro: Denies: dizziness. Objective General VS/I O: Vital Signs: Date Time Temp Pulse Resp B/P B/P Pulse O2 O2 F low FiO2 Mean Ox Delivery Rate 12/26 1105 75 100 12/26 0747 77 100 12/26 0747 100 BiPAP 40 12/26 0710 36.4 72 26 168/64 99 100 12/26 0700 36.5 72 27 147/52 80 91 12/26 0630 96/53 69 12/26 0630 36.5 75 16 102/42 59 100 12/26 0601 96/55 73 12/26 0601 36.5 73 15 102/41 57 100 12/26 0600 36.5 73 13 106/41 58 100 12/26 0545 36.5 72 19 130/47 70 100 12/26 0538 117/75 91 12/26 0538 73 21 143/51 78 100 10/14 0500 159/67 97 /14 0500 36.4 71 29 160/62 96 100 /14 0430 151/69 99 10/14 0430 36.4 70 20 163/60 90 100 /14 0400 163/76 109 10/14 0400 36.6 72 47 173/64 97 100 /14 0350 69 100 50 /14 0330 163/71 102 /14 0330 36.7 70 22 178/66 100 97 /14 0300 170/72 104 /14 0300 36.8 73 24 184/70 108 96 /14 0231 177/81 117 /14 0231 36.9 71 30 173/67 102 97 /14 0200 104/51 74 10/14 0200 37.0 69 16 100/43 57 100 /14 0131 112/54 78 10/14 0131 36.9 71 16 107/44 60 100 /14 0101 161/71 102 /14 0101 36.8 72 33 169/70 104 98 /14 0100 36.8 72 28 176/70 104 97 /14 0031 183/76 109 /14 0031 36.8 70 26 181/67 103 95 12/26 0012 72 98 50 / 0000 150/75 105 12/26 0000 36.9 69 23 158/63 93 100 12/25 2330 95/52 70 12/25 2330 36.9 75 17 93/41 54 100 12/25 2322 36.9 75 17 91/41 54 100 12/25 2305 110/55 79 12/25 2305 36.8 75 16 106/44 60 100 12/25 2300 36.8 75 14 118/45 64 100 12/25 2245 36.7 75 32 166/64 100 95 12/25 2200 36.7 72 20 159/52 80 100 12/25 2145 36.6 72 23 179/56 92 100 12/25 2100 36.6 75 44 166/48 79 97 12/25 2045 36.6 74 30 176/53 87 97 12/25 2018 BiPAP 40 12/25 2018 72 98 50 12/25 2002 134/71 93 12/25 2001 36.6 76 31 173/51 83 92 12/26 1999 BiPAP 40 12/25 1944 36.6 76 31 183/54 87 95 12/25 1912 191/78 112 12/25 1912 36.5 75 40 172/52 85 99 12/25 1901 191/76 109 12/25 1901 36.5 76 47 172/51 84 98 12/25 1845 36.5 75 41 172/46 80 94 12/25 1831 36.6 72 33 181/52 85 91 12/25 1801 168/125 136 12/25 1801 36.5 72 48 155/41 67 85 12/25 1800 36.5 75 44 149/37 66 74 12/25 1731 156/64 92 12/25 1731 36.4 72 24 157/41 70 99 12/25 1724 36.4 75 31 155/42 71 96 12/25 1701 36.3 12/25 1701 172/70 100 12/25 1701 72 31 150/39 67 99 12/25 1700 36.3 71 31 151/40 68 96 12/25 1631 185/75 108 12/25 1631 36.3 72 23 184/63 97 97 12/25 1601 199/74 107 12/25 1601 36.2 77 22 171/60 91 98 12/25 1600 36.2 76 29 174/63 94 97 12/25 1541 165/64 92 12/25 1541 36.2 72 26 175/62 94 96 12/25 1531 221/82 118 12/25 1531 36.2 71 29 166/69 102 88 12/25 1525 98 High flow 15 nasal cannula 12/25 1501 181/74 107 12/25 1501 36.2 73 45 174/64 96 98 12/25 1500 36.2 75 41 174/64 97 98 12/25 1434 36.2 75 43 167/60 90 97 12/25 1401 166/79 113 12/25 1401 36.2 74 28 165/59 90 92 12/25 1400 36.2 74 29 163/58 89 90 12/25 1330 95/78 83 12/25 1330 36.2 69 40 160/60 91 97 12/25 1230 99/49 70 12/25 1230 36.3 76 25 128/54 75 100 12/25 1212 73 100 45 12/25 1200 36.4 72 25 141/59 83 100 24 hour I O ending at 0700: 12/26 0700 12/25 1900 Intake Total 790.30 971.00 Output Total 1000 1650 Balance -209.70 -679.00 Intake, IV 310.30 43.00 Intake, Lipid 64 Intake, Oral 480 Intake, Oral 720 Supplement Intake, 144 TPN/PPN Number 12 Incontinent Voids Output, Urine 1000 1650 Patient 122.7 kg Weight Weight Standing scale Measurement Method PATIENT WEIGHT: Weight (lb): 270 Weight (oz): 8.12 Weight (kg): 122.700 Medications: Active Meds + DC'd Last 24 Hrs Furosemide (LASIX) 240 MG Q24H IV (CKD) IV Miscellaneous Supplies (CONTAINER, BAG) 1 EA CH Acetazolamide (DIAMOX) 250 MG ONCE ONE IV (DC) Sterile Water (WATER FOR INJECTION) 5 ML ASDIR P RN IV Potassium Phos/Sodium Phos (NEUTRA-PHOS) 1 UDPKT TID PO (DC) Acetazolamide (DIAMOX) 250 MG ONCE ONE IV (DC) Sterile Water (WATER FOR INJECTION) 5 ML ASDIR P RN IV (DC) Albumin Human (ALBUMINAR 25%) 100 ML ONCE ONE IV (DC) Potassium Chloride (POTASSIUM CHLORIDE 20MEQ TAB .ER) 40 MEQ ONCE ONE PO (DC) Pantoprazole (PROTONIX) 40 MG DAILY PO Sterile Water (WATER FOR INJECTION) 5 ML ASDIR P RN IV (DC) Furosemide (LASIX 40 mg/4 mL INJECTION) 40 MG Q8 H IV Dexmedetomidine/Sodium Chloride (PRECEDEX 1000MC G/NS 250ML) 250 ML ASDIR IV Amino Acids/Electrolytes/Dextrose (TPN ADULT- CE NTRAL 2000ML) 1,080 ML 2200 IV (DC) Bisacodyl (DULCOLAX) 10 MG DAILY PRN PRN RECTAL Lactulose (LACTULOSE) 20 GM DAILY PRN PRN PO Magnesium Hydroxide (MILK OF MAGNESIA) 30 ML PETER LY PRN PRN PO Aspirin (ASPIRIN) 81 MG DAILY PO Clopidogrel Bisulfate (Plavix) 75 MG DAILY PO Cyanocobalamin (Vitamin B-12 500 mcg tab) 500 MC G DAILY PO Ferrous Sulfate (FERROUS SULFATE) 325 MG DAILY P O Metolazone (metOLazone) 5 MG DAILY PO Polyethylene Glycol (MIRALAX) 17 GM DAILY PO Fat Emulsion (FAT EMULSION 20% (INTRALIPID)) 250 ML 2200 IV (DC) Atorvastatin Calcium (LIPITOR) 40 MG 2100 PO Docusate Sodium (DOCUSATE SODIUM) 100 MG BID PO Metoprolol Tartrate (LOPRESSOR) 12.5 MG Q12HR PO Senna (SENOKOT) 17.6 MG BEDTIME PO Amiodarone HCl (CORDARONE) 200 MG TID PO Acetaminophen (TYLENOL) 650 MG Q4H PRN PRN PO Tramadol HCl (ULTRAM) 25 MG Q4H PRN PRN PO Tramadol HCl (ULTRAM) 50 MG Q4H PRN PRN PO Insulin Human Regular (HumuLIN R) 100 UNIT ASDIR IV (CKD) Sodium Chloride (SODIUM CHLORIDE 0.9%) 99 ML Acetylcysteine (MUCOMYST FOR RT) 200 MG RTQ6H NE B Albuterol/Ipratropium (DUONEB) 3 ML RTQ6H NEB Bisacodyl (DULCOLAX) 10 MG ONCE PRN RECTAL Dopamine HCl/Dextrose (DOPamine 400MG/D5W 250ML) 250 ML ASDIR IV Milrinone Lactate/Dextrose (MILRINONE 20MG/D5W 1 00ML) 100 ML ASDIR IV ( CKD) Vasopressin (VASOSTRICT 20 Unit/NS 100ML) 100 ML ASDIR IV (CKD) Acetaminophen (TYLENOL) 650 MG Q4H PRN PRN RECT AL Calcium Chloride (CALCIUM CHLORIDE) 1 GM ASDIR P RN IV Dextrose/Water (DEXTROSE 10% IN WATER) 125 ML DIR PRN IV (CKD) Dextrose/Water (DEXTROSE 10% IN WATER) 250 ML DIR PRN IV (CKD) Glucagon (GLUCAGON) 1 MG ASDIR PRN IM Magnesium Sulfate (MAGNESIUM SULFATE 4GM/SWFI 10 0ML) 100 ML ASDIR PRN IV Magnesium Sulfate (MAGNESIUM SULFATE 2GM/SWFI 50 ML) 50 ML ASDIR PRN IV Magnesium Sulfate/Dextrose (MAGNESIUM SULFATE 1G M/D5W 100ML) 100 ML ASDIR PRN IV Nitroglycerin/Dextrose (NITROGLYCERIN 50,000MCG/ D5W 250ML) 250 ML ASDIR IV Norepinephrine Bitartrate (NOREPINEPHRINE 8 MG/N S 250 ML) 250 ML TITRATE IV Potassium Chloride (KCL 20MEQ/SWFI 100ML) 100 ML ASDIR PRN IV Sodium Bicarbonate (SODIUM BICARBONATE) 50 MEQ A SDIR PRN IV Ondansetron HCl (ZOFRAN) 4 MG Q6H PRN PRN IV Physical Exam General appearance: alert, awake, oriented Head/Eyes: atraumatic, normal conjunctiva/sclera , normal eyelids/periorb., normocephalic ENT: intubated Neck: full range of motion, non-tender, no JVD Cardiovascular: normal heart sounds, regular rat e rhythm Respiratory: dyspneic, hypercapnia, hypoxia, on oxygen, clear to auscultation Abdomen: non-tender, normal bowel sounds, soft, no distention Extremities: edema, moves all, no calf tendernes s 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, 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 Skin: dry, intact Results Findings/Data: Laboratory Tests 12/26 12/26 12/26 12/25 5488 [id number] 2015 Blood Gas Puncture Site Art Line Art Line L Radial Art Li ne O2 Saturation (90 - 100 %) 98.6 97.2 96.8 96.1 ABG pH (7.35 - 7.45) 7.356 7.364 7.421 7.378 ABG pCO2 (35.0 - 45 mmHg) 69.2 *H 68.3 *H 63.7 *H 64.8 *H ABG pO2 (80 - 100.0 mmHg) 128.4 H 100.9 H 89.6 86.4 ABG PO2/FiO2 Ratio (mm/Hg) 201.80 179.20 ABG HCO3 (22.0 - 26.0 MMOL/L) 38.8 *H 39.0 *H 4 1.5 *H 38.3 *H ABG Total CO2 40.9 41.1 43.5 40.3 ABG Base Excess (-4.0 - 4.0 MMOL/L) 13.2 H 13.6 H 17.0 H 13.1 H ABG Hematocrit (33.0 - 45.0 %) 25 L 23 L 25 L 2 4 L ABG Hemoglobin (11.0 - 15.0 G/DL) 8.6 L 7.9 L 8 .6 L 8.2 L Martin Test N/A Sodium (134 - 147 MEQ/L) 145 146 144 142 Potassium (3.4 - 5.0 MEQ/L) 3.8 3.7 3.7 3.5 Chloride (100 - 108 MEQ/L) 99 L 98 L 99 L 98 L Ionized Calcium (1.12 - 1.32 MMOL/L) 1.37 H 1.3 8 H 1.31 1.32 Lactic Acid (0.9 - 1.7 mmol/l) 0.7 L 0.6 L 0.6 L 0.7 L Temperature (F) 98.1 97.9 O2 Delivery Device HFNC BiPAP BiPAP HFNC Vent Rate (/MIN) 26 FiO2 (%) 50 50 Laboratory Tests 12/26 12/26 12/26 12/26 12/26 1242 1242 1134 0928 0543 Chemistry Sodium (134 - 147 mEq/L) 144 Potassium (3.4 - 5.0 mEq/L) 3.9 Chloride (100 - 108 mEq/L) 101 Carbon Dioxide (21 - 33 mEq/l) 39 H Anion Gap (0 - 20) 8 BUN (7 - 18 mg/dL) 55 H Creatinine (0.6 - 1.3 mg/dL) 0.9 POC Creatinine (0.6 - 1.0 mg/dL) 1.0 1.0 Glomerular Filtr Rate (70 - 80) 60.6 L Glucose (70 - 110 mg/dL) 207 H POC Glucose (70 - 110 MG/DL) 185 H 168 H POC Glucose (mg/dL) (70 - 110 MG/DL) 203 H 194 H Calcium (8.0 - 10.5 mg/dL) 10.1 Ionized Calcium Gigi (1.09 - 1.30 1.22 MMOL/L) Magnesium (1.80 - 2.40 mg/dL) 2.43 H 12/26 12/26 12/25 12/25 12/25 0332 0328 [id number] 2015 2014 Chemistry Sodium (134 - 147 mEq/L) 145 145 Potassium (3.4 - 5.0 mEq/L) 3.9 3.6 Chloride (100 - 108 mEq/L) 101 101 Carbon Dioxide (21 - 33 mEq/l) 38 H 38 H Anion Gap (0 - 20) 10 9 BUN (7 - 18 mg/dL) 58 H 57 H Creatinine (0.6 - 1.3 mg/dL) 1.0 1.0 POC Creatinine (0.6 - 1.0 mg/dL) 1.2 H 1.0 Glomerular Filtr Rate (70 - 80) 53.6 L 53.6 L Glucose (70 - 110 mg/dL) 200 H 235 H POC Glucose (70 - 110 MG/DL) 181 H POC Glucose (mg/dL) (70 - 110 MG/DL) 189 H 221 H Calcium (8.0 - 10.5 mg/dL) 10.4 10.2 Phosphorus (2.5 - 4.9 MG/DL) 2.8 Magnesium (1.80 - 2.40 mg/dL) 2.34 2.16 12/25 1821 Chemistry POC Glucose (70 - 110 MG/DL) 235 H Laboratory Tests 12/26 0332 Hematology WBC (4.5 - 11.0 x10 3/uL) 6.9 RBC (3.54 - 5.02 x10 6/uL) 2.03 L Hgb (11.0 - 15.0 g/dL) 8.0 L Hct (33.0 - 45.0 %) 22.9 L MCV (81.0 - 99.0 fL) 112.8 H MCH (27.0 - 33.0 pg) 39.4 H MCHC (33.0 - 37.0 g/dL) 34.9 RDW (11.5 - 14.5 %) 16.2 H Plt Count (150 - 400 x10 3/uL) 166 MPV (7.0 - 9.0 fL) 11.2 H Neut % (Auto) (56.0 - 77.0 %) 77.6 H Lymph % (Auto) (14.0 - 32.0 %) 4.2 L Barron % (Auto) (4.8 - 9.0 %) 12.6 H Eos % (Auto) (0.3 - 3.7 %) 1.3 Baso % (Auto) (0.0 - 2.0 %) 0.1 Neut # (Auto) (2.0 - 7.6 x10 3/uL) 5.34 Lymph # (Auto) (1.0 - 3.8 x10 3/uL) 0.29 L Barron # (Auto) (0.1 - 0.8 x10 3/uL) 0.87 H Eos # (Auto) (0.0 - 0.2 x10 3/uL) 0.09 Baso # (Auto) (0.0 - 0.2 x10 3/uL) 0.01 Abs Immat Gran (auto) (0.00 - 0.03 x10 3/uL) 0. 29 H Add Manual Diff NO Immature Gran % (0.0 - 2.0 %) 4.2 H Nucleated RBC % (0 - 0 %) 2.6 H Nucleated RBCs # (Man) (0.0 - 0.1 x10 3/uL) 0.1 8 H Treatment Prophylaxis Treatment Prophylaxis Drain(s)/tube(s): Drain(s)/tube(s): chest (x3) Diagnosis, Assessment Plan Consultants: cardiology, cardiovascular surgery Free Text DxA P Notes Free text DxA P notes: 76 years old female with PMH of macular degeneration, obesity, obstructive sleep apnea (CPAP at home), former smoker, hypertensio n, hyperlipidemia, diabetes, Crohn's disease, chronic atr ial fibrillation status post 3 ablations in the past (on Xarelto), pacemaker placement CAD -- multiple vesssels HTN DM HLD Crohn's disease chronic atrial fibrillation status post 3 ablati ons macular degeneration obesity obstructive sleep apnea acute respiratory failure --post surgery severe mitral valve regurgitation constrictive pericarditis CAD -- cardiology consult CV surgeon consult CABG -- AM ASA/lipitor afib -- rate control -- hold xarelto for surgery HTN-- continue home med DM-- on lantus -- sliding scale HLD-- on lipitor RONA--cpap as need DVTP -- heparin 12/18- feel sob -- CABG -- afternoon 12/19--post MVR (31 Magna valve), CABG x 1 (ROBERTS- LAD), ILAA and pericardectomy -- she remain intubated on the vent -- chest tube are in place -on levophed and epinephrine drip -- monitor in CCU 12/20- she was extubated --on bipap now -- NPO --off Levophed/epinephrine, continue vasopressi n, inotropes with milrinone, -- chest tube remain in place -- she is stable post surgery 12/21-- she is on high flow O2 -- edema --lasix --chest tube in place --- she is hemodynamic stable -- continue monitor in CCU 12/22- she remain on high O2 CXR show worsening pulmonary venous vascular co ngestion. --lasix iv tid -- chest tube are out -- off drips -- NPO -- start TPN -- continue monitor in CCU 12/23- she remain on high flow O2 --less edema -- on TPN -- she is hemodynamic stable -- continue monitor in CVICU 12/24- she get better -- she is out bed and sit on the chair -- start ambulate with PT -- continue current management 12/25- she is doing well with PT remain on o2 continue iv lasix / add diamox continue supportive care continue monitor in CVICU 12/26- she is on bipap -- she remain sob and edema -- may start lasix drip as nurse -- continue supportive care review all image and consultants notes Current Medications Sig/Fabby Start time Last Medication Dose Route Stop Time Status Admin Amlodipine Besylate 5 MG DAILY 12/18 899 AC PO 01/17 859 Furosemide 10 MG DAILY 12/18 899 AC PO 01/17 859 Lisinopril 40 MG DAILY 12/18 899 AC PO 01/16 121 Losartan Potassium 100 MG DAILY 12/18 899 AC PO 01/17 859 Metolazone 10 MG DAILY 12/18 899 AC PO 01/17 08 Pantoprazole 40 MG DAILY@0600 12/18 599 AC PO 01/17 05 Cefazolin Sodium 3 GM PREOP ONCALL 12/18 0500 C KD Sodium Chloride 250 ML IV 12/18 2358 Metoprolol Tartrate 6.25 MG ONCE ONE 12/18 050 0 AC PO 12/18 0501 Vancomycin HCl 1,750 MG PREOP ONCALL 12/18 0500 DC Sodium Chloride 500 ML IV 12/18 2358 Vancomycin HCl 1,750 MG PREOP ONCALL 12/18 499 CKD Sodium Chloride 500 ML IV 12/25 458 Verapamil HCl 16.6 MG .Q24H ONE 12/18 499 CKD Heparin Sodium 1,660 UNIT IV 12/19 458 (Porcine) Sodium Bicarbonate 0.7 ML Nitroglycerin/ 8.3 MG Dextrose Lactated Ringer's 949.5 ML Clonidine HCl 0.3 MG BID 12/17 2099 AC PO 01/16 2059 Doxazosin Mesylate 4 MG BEDTIME 12/17 2099 AC PO 01/16 2059 Insulin Glargine 50 UNIT BID 12/17 2099 AC SUBQ 01/16 2059 Insulin Human Lispro 0 AC HS 12/17 2099 AC SUBQ 01/16 2059 Pravastatin Sodium 10 MG 2100 12/17 2099 AC PO 01/16 2059 Dextrose/Water 125 ML ASDIR PRN 12/17 1800 CKD IV 01/16 1759 Dextrose/Water 250 ML ASDIR PRN 12/17 1800 CKD IV 01/16 1759 Glucagon 1 MG ASDIR PRN 12/17 1800 AC IM 01/16 1759 Atropine Sulfate 0.5 MG ASDIR PRN 12/17 1200 A C IV 12/18 1158 Sodium Chloride 1,000 ML .[id number] 12/17 1200 AC 12/17 IV 12/17 1839 1404 Sodium Chloride 500 ML ASDIR PRN 12/17 1200 AC IV 12/18 1158 Adenosine 0 .STK-MED ONE 12/17 1052 DC IV Sodium Chloride 50 ML .STK-MED ONE 12/17 1052 D C IV Iopamidol 100 ML .STK-MED ONE 12/17 1034 DC IV 12/17 1035 1034 Fentanyl Citrate 0 .STK-MED ONE 12/17 1019 DC 05 .ROUTE 1030 Midazolam HCl 0 .STK-MED ONE 12/17 1019 DC 10/0 5 .ROUTE 1030 Heparin Sodium/ 500 ML .STK-MED ONE 12/17 0949 DC 10/05 Sodium Chloride IV 1030 Heparin Sodium 0 .STK-MED ONE 12/17 0940 DC 05 .ROUTE 1030 Heparin Sodium/ 1,000 ML .STK-MED ONE 12/17 094 0 DC 10/05 Sodium Chloride IV 1030 Heparin Sodium/ 500 ML .STK-MED ONE 12/17 0940 DC 10/05 Sodium Chloride IV 1030 Lidocaine HCl 0 .STK-MED ONE 12/17 0840 DC 10/0 5 .ROUTE 1030 Nitroglycerin/ 250 ML .STK-MED ONE 12/17 0840 D C 10 Dextrose IV 1030 Verapamil HCl 0 .STK-MED ONE 12/17 0840 DC 10/0 5 IV 1030 Home Medications: RIVAROXABAN (XARELTO) 20 MG PO DAILY amLODIPine (NORVASC) 5 MG PO DAILY cloNIDine (CATAPRES) 0.3 MG PO BID DOXAZOSIN (CARDURA) LISINOPRIL (ZESTRIL) OLMESARTAN (BENICAR) 40 MG PO DAILY PRAVASTATIN (PRAVACHOL) FUROSEMIDE (LASIX) 10 MG PO DAILY METOLAZONE (ZAROXOLYN) 10 MG PO DAILY POTASSIUM CHLORIDE ER (MICRO-K) 10 MEQ PO DAILY OMEPRAZOLE ER 20 MG PO DAILY GLIMEPIRIDE (AMARYL) 4 MG PO DAILY INSULIN DETEMIR (LEVEMIR FlexTouch (15mL)) 50 UN ITS SUBQ BID INSULIN LISPRO (HumaLOG CARTRIDGE (15mL)) 0 UNIT S SUBQ TID LIRAGLUTIDE (VICTOZA (6mL)) 1.8 MG SUBQ DAILY metFORMIN (GLUCOPHAGE) 1,000 MG PO BID ADALIMUMAB + SUPPLIES (HUMIRA PREFILLED PEN) 40 MG SUBQ Q14D azaTHIOprine (IMURAN) 50 MG PO DAILY [facility]: [facility] Current Medications Current medication review: Home Medications: RIVAROXABAN (XARELTO) 20 MG PO DAILY amLODIPine (NORVASC) 5 MG PO DAILY cloNIDine (CATAPRES) 0.3 MG PO BID DOXAZOSIN (CARDURA) LISINOPRIL (ZESTRIL) OLMESARTAN (BENICAR) 40 MG PO DAILY PRAVASTATIN (PRAVACHOL) FUROSEMIDE (LASIX) 10 MG PO DAILY METOLAZONE (ZAROXOLYN) 10 MG PO DAILY POTASSIUM CHLORIDE ER (MICRO-K) 10 MEQ PO DAILY OMEPRAZOLE ER 20 MG PO DAILY GLIMEPIRIDE (AMARYL) 4 MG PO DAILY INSULIN DETEMIR (LEVEMIR FlexTouch (15mL)) 50 UN ITS SUBQ BID INSULIN LISPRO (HumaLOG CARTRIDGE (15mL)) 0 UNIT S SUBQ TID LIRAGLUTIDE (VICTOZA (6mL)) 1.8 MG SUBQ DAILY metFORMIN (GLUCOPHAGE) 1,000 MG PO BID ADALIMUMAB + SUPPLIES (HUMIRA PREFILLED PEN) 40 MG SUBQ Q14D azaTHIOprine (IMURAN) 50 MG PO DAILY I attest that the foregoing medication list in t he medical record is true, accurate, and complete to the best of my knowled ge. Electronically Signed by Meryl Rosa MD on 2 at 1633 [facility] #:[id number] END OF REPORT 2021-12-26 09:56:00-00:00 [facility] ([facility]) Cardiology Progress Note REPORT#:[id number] REPORT STATUS: Signed DATE:12/26/21 TIME: 955 PATIENT: SAÚL GILES UNIT #: [id number] ROOM/BED: [place] [id number] : 43 AGE: 76 SEX: F ATTEND: Leah More MD ADM AUTHOR: Jillian Lane NP * ALL edits or amendments must be made on the el ectronic/computer document * Subjective Chief complaint: on bipap Objective General VS/I O: Laboratory Tests 12/26/21 0332: [Embedded Image Not Available] 12/25/21 2015: [Embedded Image Not Available] 12/25/21 1500: [Embedded Image Not Available] 12/25/21 1150: [Embedded Image Not Available] 12/25/21 0358: [Embedded Image Not Available] 12/24/21 2000: [Embedded Image Not Available] 12/24/21 1415: [Embedded Image Not Available] Current Medications Sig/Fabby Start time Last Medication Dose Route Stop Time Status Admin Acetazolamide 250 MG ONCE ONE 12/26 0945 DC IV 12/26 0946 Sterile Water 5 ML ASDIR PRN 12/26 0945 AC IV 12/26 1500 Potassium Phos/ 1 UDPKT TID 12/25 1500 DC 12/26 Sodium Phos PO 12/26 0901 0847 Acetazolamide 250 MG ONCE ONE 12/25 1430 DC IV 12/25 1431 1441 Sterile Water 5 ML ASDIR PRN 12/25 1430 DC IV 12/25 2100 Albumin Human 100 ML ONCE ONE 12/25 1200 DC IV 12/25 1339 1204 Potassium Chloride 40 MEQ ONCE ONE 12/25 1200 D C 12/25 PO 12/25 1201 1204 Epinephrine 4 MG ASDIR 12/25 0930 DC Dextrose/Water 246 ML IV 01/18 0929 Pantoprazole 40 MG DAILY 12/25 0900 AC 12/26 PO 01/24 0859 0847 Sterile Water 5 ML ASDIR PRN 12/25 0815 DC IV 01/24 0814 Potassium Phosphate 30 MM ONCE ONE 12/25 0530 D C 12/25 Sodium Chloride 250 ML IV 12/25 1129 0647 Furosemide 40 MG Q8H 12/25 0100 AC 12/25 IV 0809 Dexmedetomidine/ 250 ML ASDIR 12/24 2330 AC Sodium Chloride IV 01/23 2329 2343 Amino Acids/ 1,080 ML 2200 12/24 2200 DC 12/24 Electrolytes/Dextrose IV 12/25 2158 2116 Bisacodyl 10 MG DAILY PRN PRN 12/24 1545 AC RECTAL 01/23 1544 1645 Lactulose 20 GM DAILY PRN PRN 12/24 1330 AC PO 01/23 1329 1645 Magnesium Hydroxide 30 ML DAILY PRN PRN 12/24 1 330 AC 12/24 PO 01/23 1329 1646 Aspirin 81 MG DAILY 12/24 09 AC 12/26 PO 01/23 0859 0846 Clopidogrel Bisulfate 75 MG DAILY 12/24 899 AC 12/26 PO 01/23 0859 0846 Cyanocobalamin 500 MCG DAILY 12/24 899 AC 12/13 4 PO 01/23 0859 0848 Ferrous Sulfate 325 MG DAILY 12/24 899 AC 12/13 4 PO 01/23 0859 0847 Metolazone 5 MG DAILY 12/24 899 AC 12/25 PO 01/23 0859 0856 Polyethylene Glycol 17 GM DAILY 12/24 0900 AC 1 PO 01/23 0859 1056 Fat Emulsion 250 ML 0 12/23 2199 DC 12/24 IV 12/25 2158 2343 Atorvastatin Calcium 40 MG 2100 12/23 2100 AC 1 PO 01/22 2059 205 Docusate Sodium 100 MG BID 12/23 2100 AC 12/24 PO 01/22 205 211 Metoprolol Tartrate 12.5 MG Q12HR 12/23 2100 AC 12/26 PO 01/22 205 0847 Senna 17.6 MG BEDTIME 12/23 2100 AC 12/23 PO 01/22 205 210 Amiodarone HCl 200 MG TID 12/23 1500 AC 12/26 PO 01/22 1459 0847 Acetaminophen 650 MG Q4H PRN PRN 12/23 1200 AC 12/24 PO 01/22 1147 1058 Tramadol HCl 25 MG Q4H PRN PRN 12/23 1200 AC PO 12/28 1154 Tramadol HCl 50 MG Q4H PRN PRN 12/23 1200 AC PO 12/28 1154 2104 Insulin Human Regular 100 UNIT ASDIR 12/23 1100 CKD 12/25 Sodium Chloride 99 ML IV 01/22 1059 1819 Acetylcysteine 200 MG RTQ6H 12/21 1530 AC 12/26 NEB 01/20 1529 0743 Albuterol/Ipratropium 3 ML RTQ6H 12/21 1530 AC 12/26 NEB 01/20 1529 0744 Bisacodyl 10 MG ONCE PRN 12/21 1200 AC 12/23 RECTAL 01/20 1159 1109 Dextrose/Water 1,000 ML ASDIR PRN 12/21 1145 D C IV 01/20 1144 Miscellaneous 1 EACH ASDIR 12/21 1115 DC Information IV 01/20 1114 Dopamine HCl/Dextrose 250 ML ASDIR 12/20 08 A C 12/20 IV 01/19 0759 0829 Milrinone Lactate/ 100 ML ASDIR 12/19 2029 CKD 12/20 Dextrose IV 01/18 2029 0441 Vasopressin 100 ML ASDIR 12/19 2030 CKD 12/20 IV 01/18 202 2042 Acetaminophen 650 MG Q4H PRN PRN 12/19 1115 AC RECTAL 01/18 1114 Calcium Chloride 1 GM ASDIR PRN 12/19 1115 AC IV 01/18 1114 Dextrose/Water 125 ML ASDIR PRN 12/19 1115 CKD IV 01/18 1114 Dextrose/Water 250 ML ASDIR PRN 12/19 1115 CKD IV 01/18 1114 Glucagon 1 MG ASDIR PRN 12/19 1115 AC IM 01/18 1114 Magnesium Sulfate 100 ML ASDIR PRN 12/19 1115 A C IV 01/18 1114 Magnesium Sulfate 50 ML ASDIR PRN 12/19 1115 A C IV 01/18 1114 Magnesium Sulfate/ 100 ML ASDIR PRN 12/19 1115 AC 12/25 Dextrose IV 01/18 1114 2136 Nitroglycerin/ 250 ML ASDIR 12/19 1115 AC Dextrose IV 01/18 1114 Norepinephrine 250 ML TITRATE 12/19 1115 AC Bitartrate IV 01/18 1114 Potassium Chloride 100 ML ASDIR PRN 12/19 1115 AC 12/26 IV 01/18 1114 0506 Sodium Bicarbonate 50 MEQ ASDIR PRN 12/19 1115 AC IV 01/18 1114 Ondansetron HCl 4 MG Q6H PRN PRN 12/18 1145 AC 12/25 IV 01/17 1144 0326 24 hour I O ending at 0700: 12/26 0700 12/25 1900 Intake Total 790.30 971.00 Output Total 1000 1650 Balance -209.70 -679.00 Intake, IV 310.30 43.00 Intake, Lipid 64 Intake, Oral 480 Intake, Oral 720 Supplement Intake, 144 TPN/PPN Number 12 Incontinent Voids Output, Urine 1000 1650 Patient 122.7 kg Weight Weight Standing scale Measurement Method Vital Signs: Date Time Temp Pulse Resp B/P B/P Pulse O2 O2 F low FiO2 Mean Ox Delivery Rate 12/26 0747 77 100 12/26 0747 100 BiPAP 40 12/26 0710 36.4 72 26 168/64 99 100 12/26 0700 36.5 72 27 147/52 80 91 12/26 0630 96/53 69 12/26 0630 36.5 75 16 102/42 59 100 12/26 0601 96/55 73 / 0601 36.5 73 15 102/41 57 100 12/26 0600 36.5 73 13 106/41 58 100 12/26 0545 36.5 72 19 130/47 70 100 / 0538 117/75 91 / 0538 73 21 143/51 78 100 12/26 0500 159/67 97 12/26 0500 36.4 71 29 160/62 96 100 / 0430 151/69 99 12/26 0430 36.4 70 20 163/60 90 100 / 0400 163/76 109 / 0400 36.6 72 47 173/64 97 100 / 0350 69 100 50 /14 0330 163/71 102 /14 0330 36.7 70 22 178/66 100 97 /14 0300 170/72 104 /14 0300 36.8 73 24 184/70 108 96 /14 0231 177/81 117 /14 0231 36.9 71 30 173/67 102 97 /14 0200 104/51 74 10/14 0200 37.0 69 16 100/43 57 100 /14 0131 112/54 78 /14 0131 36.9 71 16 107/44 60 100 / 0101 161/71 102 /14 0101 36.8 72 33 169/70 104 98 /14 0100 36.8 72 28 176/70 104 97 12/26 0031 183/76 109 12/26 0031 36.8 70 26 181/67 103 95 12/26 0012 72 98 50 12/26 0000 150/75 105 12/26 0000 36.9 69 23 158/63 93 100 12/25 2330 95/52 70 12/25 2330 36.9 75 17 93/41 54 100 12/25 2322 36.9 75 17 91/41 54 100 12/25 2305 110/55 79 12/25 2305 36.8 75 16 106/44 60 100 12/25 2300 36.8 75 14 118/45 64 100 12/25 2245 36.7 75 32 166/64 100 95 12/25 2200 36.7 72 20 159/52 80 100 12/25 2145 36.6 72 23 179/56 92 100 12/25 2100 36.6 75 44 166/48 79 97 12/25 2045 36.6 74 30 176/53 87 97 12/25 2018 BiPAP 40 12/25 2018 72 98 50 12/25 2002 134/71 93 12/25 2002 36.6 76 31 173/51 83 92 12/26 1999 BiPAP 40 12/25 1945 36.6 76 31 183/54 87 95 12/25 1912 191/78 112 12/25 1912 36.5 75 40 172/52 85 99 12/25 1901 191/76 109 12/25 1901 36.5 76 47 172/51 84 98 12/25 1845 36.5 75 41 172/46 80 94 12/25 1831 36.6 72 33 181/52 85 91 12/25 1801 168/125 136 12/25 1801 36.5 72 48 155/41 67 85 12/25 1800 36.5 75 44 149/37 66 74 12/25 1731 156/64 92 12/25 1731 36.4 72 24 157/41 70 99 12/25 1724 36.4 75 31 155/42 71 96 12/25 1701 36.3 12/25 1701 172/70 100 12/25 1701 72 31 150/39 67 99 12/25 1700 36.3 71 31 151/40 68 96 12/25 1631 185/75 108 12/25 1631 36.3 72 23 184/63 97 97 12/25 1601 199/74 107 12/25 1601 36.2 77 22 171/60 91 98 12/25 1600 36.2 76 29 174/63 94 97 12/25 1541 165/64 92 12/25 1541 36.2 72 26 175/62 94 96 12/25 1531 221/82 118 12/25 1531 36.2 71 29 166/69 102 88 12/25 1525 98 High flow 15 nasal cannula 12/25 1501 181/74 107 12/25 1501 36.2 73 45 174/64 96 98 12/25 1500 36.2 75 41 174/64 97 98 12/25 1434 36.2 75 43 167/60 90 97 12/25 1401 166/79 113 12/25 1401 36.2 74 28 165/59 90 92 12/25 1400 36.2 74 29 163/58 89 90 12/25 1330 95/78 83 12/25 1330 36.2 69 40 160/60 91 97 12/25 1230 99/49 70 12/25 1230 36.3 76 25 128/54 75 100 12/25 1212 73 100 45 12/25 1200 36.4 72 25 141/59 83 100 12/25 1131 144/60 86 12/25 1058 73 21 100 12/25 1056 157/72 102 12/25 1056 73 21 311/310 311 100 12/25 1031 115/56 81 12/25 1031 36.2 72 25 135/50 77 98 12/25 1015 128/61 87 12/25 1015 36.2 72 24 127/49 73 100 12/25 1003 72 100 45 12/25 1001 79/46 58 12/25 1001 36.1 72 26 101/39 56 100 12/25 1000 36.1 72 25 102/39 56 100 PATIENT WEIGHT: Weight (lb): 270 Weight (oz): 8.12 Weight (kg): 122.700 Status post: CABG, MVR, and ILAA Physical Exam General appearance: chronically ill appearing, r espiratory support ENT: moist mucosal membranes Neck: no JVD Cardiovascular: CV assessment: regular rate and rhythm Respiratory: decreased breath sounds, on oxygen Abdomen: obese Genitourinary: no flank pain, no urinary cathete r Upper extremity: UE assessment: normal temperature, no edema Lower extremity: LE assessment: edema Skin: dry, intact Psychiatry: normal affect, normal mood Results Radiology data: Recent Impressions: RADIOLOGY - XR CHEST 1 V 12/26 0612 Report Impression - Status: SIGNED Entered: 12/26/2021 0644 IMPRESSION: 1. The right IJ central line is unchanged. Intra cardiac pacer leads are grossly unchanged. 2. There is grossly stable central pulmonary vas cular congestion. 3. Allowing for differences in lung volumes, the re is grossly no significant interval change in generalized right pulmonary opacification. 4. There are suspected bilateral pleural effusio ns. No pneumothorax is visible. Impression By: [email or web address] - Bill Kern M.D. Diagnosis, Assessment Plan Consultants: cardiology, cardiovascular surgery Free Text DxA P Notes Free Text DxA P Notes: Ms Giles is a 76 y/o Femal w / PMHx: CAD, HLD, T2DM, RONA (CPAP at home), smoker, Crohn's disease, AF s/p ablation (on Xarelto), s /p PPM and lymphedema. Dr. Fortune is consulted for CAD s/p CABG, MVR. - CAD s/p CABG, MVR, and ILAA. post-op per CTS and critical care On Plavix, aspirin, beta-delma, statin volume management per Nephrology - Chr AF s/p PPM/ablation. Rate controlled, pace d rhythm. had ILAA during bypass - HTN. BP stable - HLD. On statins. - Crohn's disease. Per IM. -MARCELLO - resolving per Nephrology -Resp insufficiency on BIPAP per critical care -Diastolic CHF/volume overload negative fluid balance but patient is still vo lume overloaded diuretic management per nephrology/CTS Electronically Signed by Jillian Lane NP on 1 at 1143 Electronically Signed by Aruna Fortune MD on at 2254 RPT #:[id number] END OF REPORT 2021-12-25 20:33:00-00:00 [facility] Nephrology Progress Note REPORT#:[id number] REPORT STATUS: Signed DATE:12/25/21 TIME: 2032 PATIENT: SAÚL GILES UNIT #: [id number] ROOM/BED: [place] [address] : 43 AGE: 76 SEX: F ATTEND: Leah More MD ADM AUTHOR: Suki Fuchs MD * ALL edits or amendments must be made on the [employer]/computer document * Subjective Chief complaint: chest pain HPI: This is a 76-year-old female who has past medica l history of hypertension, diabetes, coronary artery disease, atrial fibril lation who presented with worsening shortness of breath and on further wor k-up was 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 She was with normal kidney function prior to surgery and afte r her surgery she began to develop oliguria. Her procedure was done without any complications but after her surgery she did require pressor support for hypotension and she was intubated for respiratory acidosis and hypoxia a nd she was treated with vancomycin for infection treatment. When she was seen this morning she continued to have hypotension and her heart rate was paced by her permanent pacemaker and her urine outp ut was 20 to 30/h. Her family at bedside denied any history of kidney disease, kidney stone, chronic NSAID use or any urinary complaints. They also endorse that her b lood pressure and diabetes were mostly controlled. 12/25 Appearing comfortable, not in any distress,on BI PAP this morning. Objective General VS/I O: Vital Signs: Date Time Temp Pulse Resp B/P B/P Pulse O2 O2 F low FiO2 Mean Ox Delivery Rate 12/25 2018 BiPAP 40 12/25 2018 72 98 50 12/25 1831 36.6 72 33 181/52 85 91 12/25 1801 168/125 136 12/25 1801 36.5 72 48 155/41 67 85 12/25 1800 36.5 75 44 149/37 66 74 12/25 1731 156/64 92 12/25 1731 36.4 72 24 157/41 70 99 12/25 1724 36.4 75 31 155/42 71 96 12/25 1701 36.3 12/25 1701 172/70 100 12/25 1701 72 31 150/39 67 99 12/25 1700 36.3 71 31 151/40 68 96 12/25 1631 185/75 108 12/25 1631 36.3 72 23 184/63 97 97 12/25 1601 199/74 107 12/25 1601 36.2 77 22 171/60 91 98 12/25 1600 36.2 76 29 174/63 94 97 12/25 1541 165/64 92 12/25 1541 36.2 72 26 175/62 94 96 12/25 1531 221/82 118 12/25 1531 36.2 71 29 166/69 102 88 12/25 1525 98 High flow 15 nasal cannula 12/25 1501 181/74 107 12/25 1501 36.2 73 45 174/64 96 98 12/25 1500 36.2 75 41 174/64 97 98 12/25 1434 36.2 75 43 167/60 90 97 12/25 1401 166/79 113 12/25 1401 36.2 74 28 165/59 90 92 12/25 1400 36.2 74 29 163/58 89 90 12/25 1330 95/78 83 12/25 1330 36.2 69 40 160/60 91 97 12/25 1230 99/49 70 12/25 1230 36.3 76 25 128/54 75 100 12/25 1212 73 100 45 12/25 1200 36.4 72 25 141/59 83 100 12/25 1131 144/60 86 12/25 1058 73 21 100 12/25 1056 157/72 102 12/25 1056 73 21 311/310 311 100 12/25 1031 115/56 81 12/25 1031 36.2 72 25 135/50 77 98 12/25 1015 128/61 87 12/25 1015 36.2 72 24 127/49 73 100 12/25 1003 72 100 45 12/25 1001 79/46 58 12/25 1001 36.1 72 26 101/39 56 100 12/25 1000 36.1 72 25 102/39 56 100 12/25 0952 36.1 72 25 104/39 57 100 12/25 0946 123/51 74 12/25 0946 36.1 72 25 109/41 60 100 12/25 0901 129/75 90 12/25 0901 36.0 71 22 132/45 73 99 12/25 0900 36.0 72 20 131/45 72 100 12/25 0822 73 24 100 50 70 / 0822 100 High flow 50 70 nasal cannula 12/25 0801 141/66 85 12/25 0801 36.0 72 24 150/46 78 100 12/25 0800 BiPAP 45 12/25 0800 36.0 72 25 143/45 77 100 12/25 0700 36.1 72 22 166/49 85 100 12/25 0645 153/67 97 12/25 0642 75 23 100 10 0600 75 148/60 84 / 0500 36.3 74 22 98 12/25 0408 72 20 98 50 78 / 0401 156/63 90 12/25 0401 36.2 71 99 12/25 0400 36.2 73 100 12/25 0304 36.3 72 99 12/25 0301 36.3 72 20 99 12/25 0300 36.3 72 99 12/25 0224 36.4 72 98 12/25 0204 119/55 77 12/25 0204 36.6 74 24 144/60 87 100 12/25 0202 36.6 72 25 103/46 61 100 12/25 0201 36.6 72 24 103/45 61 100 12/25 0200 36.6 72 22 101/45 60 100 12/25 0101 94/44 64 12/25 0101 36.5 70 25 108/45 61 100 12/25 0100 36.5 69 26 108/45 62 100 12/25 0057 36.5 71 26 112/46 63 100 12/25 0004 151/69 99 12/25 0004 36.4 71 23 98 12/25 0000 36.4 72 25 100 12/24 2300 122/56 81 12/24 2300 36.6 72 166/73 104 99 24 hour I O ending at 0700: 12/25 0700 12/24 1900 Intake Total 1222.00 1508.00 Output Total 1600 1700 Balance -378.00 -192.00 Intake, IV 67.00 296.00 Intake, Lipid 139 110 Intake, Oral 500 720 Intake, 516 382 TPN/PPN Number 1 2 Bowel Movements Output, Urine 1600 1700 Patient 121.5 kg Weight Weight Standing scale Measurement Method PATIENT WEIGHT: Weight (lb): 267 Weight (oz): 13.79 Weight (kg): 121.500 Physical Exam General appearance: alert, awake, oriented Head/eyes: atraumatic, normocephalic ENT: ET tube Neck: no JVD, no lymphadenopathy Cardiovascular: normal heart sounds, regular rat e and rhythm Respiratory: aerating well, clear to auscultatio n Abdomen: soft, no pulsatile mass Genitourinary: urinary catheter Extremities: pitting edema, no gangrene, no swel ling Treatment Prophylaxis Treatment Prophylaxis Drain(s)/tube(s): Drain(s)/tube(s): chest (x3) Diagnosis, Assessment Plan Free Text A P: This is a 76-year-old female known to have hyper tension, diabetes, atrial fibrillation, s/p permanent pacemaker and histor y of ablation presenting with shortness of breath and found to have multivesse l coronary artery disease therefore she had CABG on December 19 after which she has developed oliguria. Nephrology is following for: 1. Acute kidney injury: Most likely it i s prerenal (cardiorenal), she has been hypotensive postoperatively with require ment for pressor support and inotropic support. Plan is to increase inotropic support or pressor support to bring mean arterial pressure above 65 and give albumin with Lasix to see if it helps him diurese. If he does not respond to higher dose L asix with albumin then I will consider starting him on CRRT to prevent hyper v olemia. 2. Hypervolemia: Plan is to give Lasix a nd if he does not respond to start him on CRRT for extra fluid removal. 3. His electrolytes were all reviewed to be in normal range plan was to monitor and replace as needed. 4. He was receiving vancomycin so plan w as to monitor vancomycin trough levels to prevent ATN. 12/21 1. Acute kidney injury: Most likely it i s prerenal (cardiorenal), she has been hypotensive postoperatively with require ment for pressor support and inotropic support. She responded to Lasix after her blood pressure improved with higher dose vasopressin and she was given albumin. Plan was to continue twice a day Lasix and albumin for hypervolemia. 2. Hypervolemia: Plan is to give Lasix with albu min twice daily and increase dose if needed. 3. His electrolytes were all reviewed to be in normal range plan was to monitor and replace as needed. 4. He was receiving vancomycin so plan w as to monitor vancomycin trough levels to prevent ATN. 12/22 1. Acute kidney injury: Most likely it i s prerenal (cardiorenal), she has been hypotensive postoperatively with require ment for pressor support and inotropic support. She responded to Lasix after her blood pressure improved with higher dose vasopressin and she was given albumin. Vicki n was to continue Lasix and albumin for hypervolemia.Plan to increase dose t o reach goal of 1 L negative Q12H. 2. Hypervolemia: Plan is to give Lasix with albu min and increase dose if needed. 3. His electrolytes were all reviewed to be in normal range plan was to monitor and replace as needed. 4. He was receiving vancomycin so plan w as to monitor vancomycin trough levels to prevent ATN. 12/23 1. Acute kidney injury: Most likely it i s prerenal (cardiorenal), she has been hypotensive postoperatively with require ment for pressor support and inotropic support. She responded to Lasix after her blood pressure improved with higher dose vasopressin and she was given albumin. Plan was to continue Lasix and albumin for hypervolemia.Plan to increase dose t o reach goal of 1 L negative Q12H. 2. Hypervolemia: Plan is to give Lasix with albu min and increase dose if needed. 3. Her electrolytes were all reviewed to be in n ormal range plan was to monitor and replace as needed. 4. She was receiving vancomy sanjana so plan was to monitor vancomycin trough levels to prevent ATN. 5/ Metabolic alkalosis secondary to diur etics : Plan to give acetazoleamide if worsening. 12/24 1. Acute kidney injury: Resolved, she is respond ing to lasix. 2. Hypervolemia: Plan to continue lasix as rhys ated. 3. Her electrolytes were all reviewed to be in n ormal range plan was to monitor and replace as needed. 4. She was receiving vancomy sanjana so plan was to monitor vancomycin trough levels to prevent ATN. 5/ Metabolic alkalosis secondary to diur etics : Plan to give acetazoleamide if worsening. 12/25 1. Acute kidney injury: Resolved, she is respond ing to lasix. 2. Hypervolemia: Plan to continue lasix as rhys ated.Today it was held for metabolic alkalosis. 3. Her electrolytes were all reviewed to be in n ormal range plan was to monitor and replace as needed. 4. She was receiving vancomy sanjana so plan was to monitor vancomycin trough levels to prevent ATN. 5/ Metabolic alkalosis secondary to diur etics : Plan to give acetazoleamide if worsening. Consultants: cardiology, cardiovascular surgery Electronically Signed by Suki Fuchs MD on at 2234 RPT #:[id number] END OF REPORT 2021-12-25 18:08:00-00:00 [facility] Cardiothoracic Surgery Prog REPORT#:[id number] REPORT STATUS: Signed DATE:12/25/21 TIME: 1808 PATIENT: SAÚL GILES UNIT #: [id number] ROOM/BED: [place] [address] : 43 AGE: 76 SEX: F ATTEND: Leah More MD ADM AUTHOR: Tj Bonner MD * ALL edits or amendments must be made on the [employer] document * General Post-op: day 6 Status post: 1. Mitral valve replacement (31 Magna valve). 2. Coronary artery bypass graft surgery x1 (GOMES A to LAD). 3. Isolation of left atrial appendage. 4. Pericardiectomy. Subjective Chief complaint: Shortness of breath Review of Systems Constitutional: Denies: fever, malaise. Allergy/Immun: Denies: allergic reaction. ENT: Denies: sore throat. Respiratory: Denies: SOB. GI: Denies: abdominal pain. Heme: Denies: bleeding. Neuro: Denies: focal weakness, headache. All systems rev neg: except as marked Objective General VS/I O Last Documented: Result Date Time Pulse Ox 96 12/26 1723 B/P 155/42 12/26 1723 B/P Mean 71 12/26 1723 Temp 36.4 12/25 172 Pulse 75 12/25 1724 Resp 31 12/25 1724 O2 Delivery High flow nasal cannula 12/25 1525 O2 Flow Rate 15 12/25 1525 FiO2 45 12/25 1212 24 hour I O ending at 0700: 12/25 0700 12/24 1900 Intake Total 1222.00 1508.00 Output Total 1600 1700 Balance -378.00 -192.00 Intake, IV 67.00 296.00 Intake, Lipid 139 110 Intake, Oral 500 720 Intake, 516 382 TPN/PPN Number 1 2 Bowel Movements Output, Urine 1600 1700 Patient 121.5 kg Weight Weight Standing scale Measurement Method PATIENT WEIGHT: Weight (lb): 267 Weight (oz): 13.79 Weight (kg): 121.500 Dietitian Nutrition assessment The data set between the solid lines has been im ported from the dietitian's assessment. BMI Calculated: 46.0 Nutrition related diagnosis: Morbid obesity Nutrition diagnosis details: BMI 40 or more Nutrition problem: Increased nutrient needs Nutrition etiology: Chronic disease Nutrition signs and symptoms: S/P CABG Nutrition prescription: 1. C ONTINUE REGULAR DIET TO LIBERALIZE FOOD CHOICES AND HELP INCREASE PO INTAKE. 2. PROVIDE GLUCERNA 4 PER DAY. 3. MONITOR PO, WT, LABS, BM. 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, 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, normal speech Skin: dry, intact, normal temperature Psychiatry: normal affect, normal mood Current Medications Medications: Active Meds + DC'd Last 24 Hrs Potassium Phos/Sodium Phos (NEUTRA-PHOS) 1 UDPKT TID PO Acetazolamide (DIAMOX) 250 MG ONCE ONE IV (DC) Sterile Water (WATER FOR INJECTION) 5 ML ASDIR P RN IV Albumin Human (ALBUMINAR 25%) 100 ML ONCE ONE IV (DC) Potassium Chloride (POTASSIUM CHLORIDE 20MEQ TAB .ER) 40 MEQ ONCE ONE PO (DC) Epinephrine (ADRENALIN CHLORIDE) 4 MG ASDIR IV ( DC) Dextrose/Water (DEXTROSE 5% WATER) 246 ML Pantoprazole (PROTONIX) 40 MG DAILY PO Acetazolamide (DIAMOX) 250 MG ONCE ONE IV (DC) Sterile Water (WATER FOR INJECTION) 5 ML ASDIR P RN IV (DC) Potassium Phosphate (POTASSIUM PHOSPHATE) 30 MM ONCE ONE IV (DC) Sodium Chloride (SODIUM CHLORIDE 0.9%) 250 ML Furosemide (LASIX 40 mg/4 mL INJECTION) 40 MG Q8 H IV Dexmedetomidine/Sodium Chloride (PRECEDEX 1000MC G/NS 250ML) 250 ML ASDIR IV Amino Acids/Electrolytes/Dextrose (TPN ADULT- CE NTRAL 2000ML) 1,080 ML 2200 IV Potassium Chloride (POTASSIUM CHLORIDE 20MEQ TAB .ER) 40 MEQ ONCE ONE PO (DC) Bisacodyl (DULCOLAX) 10 MG DAILY PRN PRN RECTAL Sterile Water (WATER FOR INJECTION) 5 ML ASDIR P RN IV (DC) Lactulose (LACTULOSE) 20 GM DAILY PRN PRN PO Magnesium Hydroxide (MILK OF MAGNESIA) 30 ML PETER LY PRN PRN PO Aspirin (ASPIRIN) 81 MG DAILY PO Clopidogrel Bisulfate (Plavix) 75 MG DAILY PO Cyanocobalamin (Vitamin B-12 500 mcg tab) 500 MC G DAILY PO Ferrous Sulfate (FERROUS SULFATE) 325 MG DAILY P O Metolazone (metOLazone) 5 MG DAILY PO Polyethylene Glycol (MIRALAX) 17 GM DAILY PO Amino Acids/Electrolytes/Dextrose (TPN ADULT- CE NTRAL 1000ML) 960 ML 2200 IV (DC) Fat Emulsion (FAT EMULSION 20% (INTRALIPID)) 250 ML 2200 IV Atorvastatin Calcium (LIPITOR) 40 MG 2100 PO Docusate Sodium (DOCUSATE SODIUM) 100 MG BID PO Metoprolol Tartrate (LOPRESSOR) 12.5 MG Q12HR P O Senna (SENOKOT) 17.6 MG BEDTIME PO Amiodarone HCl (CORDARONE) 200 MG TID PO Acetaminophen (TYLENOL) 650 MG Q4H PRN PRN PO Tramadol HCl (ULTRAM) 25 MG Q4H PRN PRN PO Tramadol HCl (ULTRAM) 50 MG Q4H PRN PRN PO Insulin Human Regular (HumuLIN R) 100 UNIT ASDIR IV (CKD) Sodium Chloride (SODIUM CHLORIDE 0.9%) 99 ML Furosemide (LASIX 40 mg/4 mL INJECTION) 60 MG Q8 H IV (DC) Acetylcysteine (MUCOMYST FOR RT) 200 MG RTQ6H NE B Albuterol/Ipratropium (DUONEB) 3 ML RTQ6H NEB Bisacodyl (DULCOLAX) 10 MG ONCE PRN RECTAL Dextrose/Water (Dextrose 10% 1,000 mL) 1,000 ML ASDIR PRN IV (DC) Miscellaneous Information (TPN (Central) PHARMAC Y TO DOSE) 1 EACH ASDIR IV (DC) Dopamine HCl/Dextrose (DOPamine 400MG/D5W 250ML) 250 ML ASDIR IV Milrinone Lactate/Dextrose (MILRINONE 20MG/D5W 1 00ML) 100 ML ASDIR IV ( CKD) Vasopressin (VASOSTRICT 20 Unit/NS 100ML) 100 ML ASDIR IV (CKD) Acetaminophen (TYLENOL) 650 MG Q4H PRN PRN RECTA L Calcium Chloride (CALCIUM CHLORIDE) 1 GM ASDIR P RN IV Dextrose/Water (DEXTROSE 10% IN WATER) 125 ML DIR PRN IV (CKD) Dextrose/Water (DEXTROSE 10% IN WATER) 250 ML DIR PRN IV (CKD) Epinephrine (ADRENALIN CHLORIDE) 5 MG ASDIR IV ( DC) Dextrose/Water (DEXTROSE 5% WATER) 245 ML Glucagon (GLUCAGON) 1 MG ASDIR PRN IM Magnesium Sulfate (MAGNESIUM SULFATE 4GM/SWFI 10 0ML) 100 ML ASDIR PRN IV Magnesium Sulfate (MAGNESIUM SULFATE 2GM/SWFI 50 ML) 50 ML ASDIR PRN IV Magnesium Sulfate/Dextrose (MAGNESIUM SULFATE 1G M/D5W 100ML) 100 ML ASDIR PRN IV Nitroglycerin/Dextrose (NITROGLYCERIN 50,000MCG/ D5W 250ML) 250 ML ASDIR IV Norepinephrine Bitartrate (NOREPINEPHRINE 8 MG/N S 250 ML) 250 ML TITRATE IV Potassium Chloride (KCL 20MEQ/SWFI 100ML) 100 ML ASDIR PRN IV Sodium Bicarbonate (SODIUM BICARBONATE) 50 MEQ A SDIR PRN IV Ondansetron HCl (ZOFRAN) 4 MG Q6H PRN PRN IV Vancomycin HCl (VANCOMYCIN HCL) 1,750 MG PREOP O NCALL IV (DC) Sodium Chloride (NS 0.9%) 500 ML Results Findings/Data: Laboratory Tests 12/25 12/25 12/25 12/25 1505 1148 1011 0907 Blood Gas Puncture Site Art Line Art Line Art Line Art Li ne O2 Saturation (90 - 100 %) 94.9 96.7 96.5 96.2 ABG pH (7.35 - 7.45) 7.364 7.378 7.362 7.348 L ABG pCO2 (35.0 - 45 mmHg) 72.3 *H 67.2 *H 65.6 *H 71.0 *H ABG pO2 (80 - 100.0 mmHg) 82.1 93.9 93.1 92.3 ABG PO2/FiO2 Ratio (mm/Hg) 208.66 206.88 123.06 ABG HCO3 (22.0 - 26.0 MMOL/L) 41.2 *H 39.6 *H 3 7.2 *H 39.0 *H ABG Total CO2 43.4 41.6 39.2 41.2 ABG Base Excess (-4.0 - 4.0 MMOL/L) 15.8 H 14.4 H 11.8 H 13.4 H ABG Hematocrit (33.0 - 45.0 %) 25 L 24 L 24 L 2 6 L ABG Hemoglobin (11.0 - 15.0 G/DL) 8.5 L 8.2 L 8 .2 L 9.0 L Sodium (134 - 147 MEQ/L) 146 145 146 145 Potassium (3.4 - 5.0 MEQ/L) 3.7 3.2 L 3.3 L 3.4 Chloride (100 - 108 MEQ/L) 97 L 98 L 99 L 99 L Ionized Calcium (1.12 - 1.32 MMOL/L) 1.36 H 1.3 5 H 1.32 1.37 H Lactic Acid (0.9 - 1.7 mmol/l) 0.7 L 0.6 L 0.6 L 0.7 L O2 Delivery Device HFJV BiPAP BiPAP HFNC FiO2 (%) 45 45 75 12/25 12/24 0353 2000 Blood Gas Puncture Site Art Line Art Line O2 Saturation (90 - 100 %) 93.8 96.2 ABG pH (7.35 - 7.45) 7.393 7.358 ABG pCO2 (35.0 - 45 mmHg) 67.7 *H 61.0 *H ABG pO2 (80 - 100.0 mmHg) 73.0 L 89.1 ABG PO2/FiO2 Ratio (mm/Hg) 97.33 178.20 ABG HCO3 (22.0 - 26.0 MMOL/L) 41.4 *H 34.4 *H ABG Total CO2 43.5 36.3 ABG Base Excess (-4.0 - 4.0 MMOL/L) 16.4 H 8.9 H ABG Hematocrit (33.0 - 45.0 %) 25 L 21 L ABG Hemoglobin (11.0 - 15.0 G/DL) 8.5 L 7.2 L Martin Test N/A Positive Sodium (134 - 147 MEQ/L) 145 150 H Potassium (3.4 - 5.0 MEQ/L) 3.5 2.9 L Chloride (100 - 108 MEQ/L) 97 L 108 Ionized Calcium (1.12 - 1.32 MMOL/L) 1.38 H 1.2 9 Lactic Acid (0.9 - 1.7 mmol/l) 0.6 L 0.6 L Temperature (F) 98 98.1 O2 Delivery Device HFNC BiPAP Vent Mode BiLevel Vent Rate (/MIN) 26 FiO2 (%) 75 50 PEEP (cmH2O) 10 Pressure Support (cmH2O) 18 Laboratory Tests 12/25 12/25 12/25 12/25 12/25 1507 1505 1500 1150 1148 Chemistry Sodium (134 - 147 mEq/L) 146 146 Potassium (3.4 - 5.0 mEq/L) 3.8 3.4 Chloride (100 - 108 mEq/L) 100 100 Carbon Dioxide (21 - 33 mEq/l) 40 H 40 H Anion Gap (0 - 20) 10 10 BUN (7 - 18 mg/dL) 60 H 61 H Creatinine (0.6 - 1.3 mg/dL) 1.0 0.9 POC Creatinine (0.6 - 1.0 mg/dL) 1.2 H 1.1 H Glomerular Filtr Rate (70 - 80) 53.6 L 60.6 L Glucose (70 - 110 mg/dL) 153 H 146 H POC Glucose (70 - 110 MG/DL) 149 H POC Glucose (mg/dL) (70 - 110 MG/DL) 161 H 147 H Calcium (8.0 - 10.5 mg/dL) 10.6 H 10.3 Phosphorus (2.5 - 4.9 MG/DL) 2.9 2.8 Magnesium (1.80 - 2.40 mg/dL) 2.26 2.29 12/25 12/25 12/25 12/25 12/25 [facility] 0907 0745 0358 0353 Chemistry Sodium (134 - 147 mEq/L) 145 Potassium (3.4 - 5.0 mEq/L) 3.6 Chloride (100 - 108 mEq/L) 102 Carbon Dioxide (21 - 33 mEq/l) 38 H Anion Gap (0 - 20) 9 BUN (7 - 18 mg/dL) 62 H Creatinine (0.6 - 1.3 mg/dL) 1.0 POC Creatinine (0.6 - 1.0 mg/dL) 0.9 1.1 H 1.2 H Glomerular Filtr Rate (70 - 80) 53.6 L Glucose (70 - 110 mg/dL) 218 H POC Glucose (70 - 110 MG/DL) 229 H POC Glucose (mg/dL) (70 - 110 MG/DL) 162 H 192 H 236 H Calcium (8.0 - 10.5 mg/dL) 10.2 Phosphorus (2.5 - 4.9 MG/DL) 1.0 L Magnesium (1.80 - 2.40 mg/dL) 2.25 Total Bilirubin (0.0 - 1.0 mg/dL) 0.70 AST (15 - 37 IUnit/L) 17 ALT (30 - 65 IUnit/L) 16 L Total Alk Phosphatase (20 - 125 73 IUnit/L) Total Protein (6.4 - 8.2 g/dL) 6.8 Albumin (3.4 - 5.0 g/dL) 3.90 12/25 12/25 12/24 12/24 12/24 0235 0009 2213 2000 1999 Chemistry Sodium (134 - 147 mEq/L) 147 Potassium (3.4 - 5.0 mEq/L) 3.5 Chloride (100 - 108 mEq/L) 106 Carbon Dioxide (21 - 33 mEq/l) 37 H Anion Gap (0 - 20) 7 BUN (7 - 18 mg/dL) 57 H Creatinine (0.6 - 1.3 mg/dL) 0.9 POC Creatinine (0.6 - 1.0 mg/dL) 0.8 Glomerular Filtr Rate (70 - 80) 60.6 L Glucose (70 - 110 mg/dL) 117 H POC Glucose (70 - 110 MG/DL) 209 H 127 H 74 POC Glucose (mg/dL) (70 - 110 MG/DL) 110 Calcium (8.0 - 10.5 mg/dL) 9.9 Laboratory Tests 12/25 0358 Hematology WBC (4.5 - 11.0 x10 3/uL) 6.5 RBC (3.54 - 5.02 x10 6/uL) 2.29 L Hgb (11.0 - 15.0 g/dL) 8.1 L Hct (33.0 - 45.0 %) 24.8 L MCV (81.0 - 99.0 fL) 108.3 H MCH (27.0 - 33.0 pg) 35.4 H MCHC (33.0 - 37.0 g/dL) 32.7 L RDW (11.5 - 14.5 %) 15.9 H Plt Count (150 - 400 x10 3/uL) 146 L MPV (7.0 - 9.0 fL) 11.3 H Neut % (Auto) (56.0 - 77.0 %) 77.4 H Lymph % (Auto) (14.0 - 32.0 %) 4.6 L Barron % (Auto) (4.8 - 9.0 %) 13.8 H Eos % (Auto) (0.3 - 3.7 %) 1.7 Baso % (Auto) (0.0 - 2.0 %) 0.3 Neut # (Auto) (2.0 - 7.6 x10 3/uL) 5.04 Lymph # (Auto) (1.0 - 3.8 x10 3/uL) 0.30 L Barron # (Auto) (0.1 - 0.8 x10 3/uL) 0.90 H Eos # (Auto) (0.0 - 0.2 x10 3/uL) 0.11 Baso # (Auto) (0.0 - 0.2 x10 3/uL) 0.02 Abs Immat Gran (auto) (0.00 - 0.03 x10 3/uL) 0. 14 H Add Manual Diff NO Immature Gran % (0.0 - 2.0 %) 2.2 H Nucleated RBC % (0 - 0 %) 2.2 H Nucleated RBCs # (Man) (0.0 - 0.1 x10 3/uL) 0.1 4 H Radiology data: Recent Impressions: RADIOLOGY - XR CHEST 1 V 12/25 0701 Report Impression - Status: SIGNED Entered: 12/25/2021 7778 IMPRESSION: No significant change. Impression By: Fer Montanez M.D. Results: rythm personally re v'd, x-ray personally reviewed, current med profile rev'd Treatment Prophylaxis Treatment Prophylaxis Oxygen: CPAP/BIPAP Lines: arterial, CVC, peripheral Drain(s)/tube(s): Drain(s)/tube(s): chest (x3) Quality: Trauma Gen Surg Current Medications Current medication review: Home Medications: RIVAROXABAN (XARELTO) 20 MG PO DAILY amLODIPine (NORVASC) 5 MG PO DAILY cloNIDine (CATAPRES) 0.3 MG PO BID DOXAZOSIN (CARDURA) LISINOPRIL (ZESTRIL) OLMESARTAN (BENICAR) 40 MG PO DAILY PRAVASTATIN (PRAVACHOL) FUROSEMIDE (LASIX) 10 MG PO DAILY METOLAZONE (ZAROXOLYN) 10 MG PO DAILY POTASSIUM CHLORIDE ER (MICRO-K) 10 MEQ PO DAILY OMEPRAZOLE ER 20 MG PO DAILY GLIMEPIRIDE (AMARYL) 4 MG PO DAILY INSULIN DETEMIR (LEVEMIR FlexTouch (15mL)) 50 UN ITS SUBQ BID INSULIN LISPRO (HumaLOG CARTRIDGE (15mL)) 0 UNIT S SUBQ TID LIRAGLUTIDE (VICTOZA (6mL)) 1.8 MG SUBQ DAILY metFORMIN (GLUCOPHAGE) 1,000 MG PO BID ADALIMUMAB + SUPPLIES (HUMIRA PREFILLED PEN) 40 MG SUBQ Q14D azaTHIOprine (IMURAN) 50 MG PO DAILY I attest that the foregoing medication list in [facility] medical record is true, accurate, and complete to the best of my knowled ge. Diagnosis, Assessment Plan Hospital course to date: This very pleasant 76-year-old female, from [facility], with past medical history of macular d egeneration, obesity, obstructive sleep apnea (CPAP at home), former smoker, hyp ertension, hyperlipidemia, diabetes, Crohn's disease , chronic atrial fibrillatio n status post 3 ablations in the past (on Xarelto), pacemaker placement who had a recent admission t o the hospital with heart failure symptoms. She has be en admitted to the hospital today for elective heart cath. Coronary angiogram showed severe multivess el coronary artery disease suitable for percutaneous intervention. CV surge ry called for evaluation. PLAN Patient has severe coronary artery disease and c onstrictive pericarditis. She will benefit from off-pump L CHAD to LAD and pericardiotomy. Dr. Romero explained to the patient the surgery, risks involv ed, STS score, benefits, complications and alternatives. She acknowledged understanding and is willing to proceed Preop work-up has been initiated We will tentatively schedule patient for surgery tomorrow. 12/18 Preop assessment ongoing No carotid stenosis on ultrasound CT chest reviewed with Dr. Romero Surgery rescheduled for tomorrow NPO after midnight Plan discussed with the patient 12/20 POD 1 Patient hemodynamically stable, cardiac index 3. 1 Required Bipap after extubation yesterday and ov ernight Trend ABGs- wean bipap as tolerated Decrease milrinone drip to 0.125, and continue v asopressin at 0.02 Urine output marginal- dopamine drip started at 3 Creatinine increased to 1.4, monitor strict I an d O's Encourage po intake, incentive spirometer use Try to get patient out of bed to chair today PT/OT Monitor patient closely in the CVICU 12/22/21 POD3 d/c chest tubes need to diuresis agressively 40 q12 edema needs legs elevated cxr appears wet d/c swan TPN due to bipap teleflex today keep TPN for now 12/23 POD 4 Labs and cxr reviewed Increase diuresis- monitor strict I Os Continue TPN On teleflex 60L 70%- wean as tolerated Monitor patient in CVICU 12/25/21 POD 6 back on bipap if reintubate consider trach still on TPN if trach consider PEG Consultants: cardiology, cardiovascular surgery Electronically Signed by Tj Bonner MD on 12/13 06/03 at 1810 RPT #:[id number] END OF REPORT 2021-12-25 17:24:00-00:[address] [facility] ([facility] Critical Care Progress Note REPORT#:[id number] REPORT STATUS: Signed DATE:12/25/21 TIME: 1724 PATIENT: SAÚL GILES UNIT #: [id number] ROOM/BED: 2205-1 : 43 AGE: 76 SEX: F ATTEND: Leah More MD ADM AUTHOR: Ricky Goodwin MD * ALL edits or amendments must be made on the [employer]/computer document * Subjective Chief complaint: CABG/MVR HPI: 76-year-old morbidly obese f emale with history of HTN, HL, IDDM, smoking, RONA on CPAP and home O2 as needed, macular degeneration , Crohn's disease on immunosuppressant medication s, and chronic Afib s/p ablation and PPM (on Xarelto ), who was admitted recently with heart failure symptoms. Patient underwent elective cardiac cath that s howed severe multivessel coronary artery disease not suitable for percutaneous intervention. 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 She went for surgical revascularization today and preop JORDEN revealed severe mitral regurgitation. After discussing new findings with family, patient underwent MVR (31 M agna valve), CABG x 1 (ROBERTS-LAD), ILAA and pericardectomy on 12/19/2021. Has EF of 45%. Crystalloid 1 L, urine output 700, Cell Saver 700. She is a-paced at b [facility] [employer]. Surgery went well and patient was transferred to CVICU pos top in a stable surgical condition. She is currently intubated on 2 mics of epine phrine, 2 mics of Levophed and insulin drip. CI 3.0, SvO2 in 60%s, CVP 15 and PAP in 60s. Comments: Interval history- Patient has improving oxygenation. Was on BiPAP last night. But was then weaned down to Teleflex. Is on nasal cannula 15 L today. And is having contraction al kalosis bicarb is 40. Was given 1 dose of Diamox in the morning plan to repeat another dose of Diamo x and hold Lasix for now. To reassess and then dose Lasix. Patient has been eating her meals so we will sto p TPN today. Objective General VS/I O Last Documented: Result Date Time Pulse Ox 96 12/26 1723 B/P 155/42 12/26 1723 B/P Mean 71 12/26 1723 Temp 36.4 12/26 1723 Pulse 75 12/26 1723 Resp 31 10/13 1724 O2 Delivery High flow nasal cannula 12/25 1525 O2 Flow Rate 15 12/25 1525 FiO2 45 12/25 1212 24 hour I O ending at 0700: 12/25 0700 12/24 1900 Intake Total 1222.00 1508.00 Output Total 1600 1700 Balance -378.00 -192.00 Intake, IV 67.00 296.00 Intake, Lipid 139 110 Intake, Oral 500 720 Intake, 516 382 TPN/PPN Number 1 2 Bowel Movements Output, Urine 1600 1700 Patient 121.5 kg Weight Weight Standing scale Measurement Method PATIENT WEIGHT: Weight (lb): 267 Weight (oz): 13.79 Weight (kg): 121.500 Medications: Active Meds + DC'd Last 24 Hrs Potassium Phos/Sodium Phos (NEUTRA-PHOS) 1 UDPKT TID PO Acetazolamide (DIAMOX) 250 MG ONCE ONE IV (DC) Sterile Water (WATER FOR INJECTION) 5 ML ASDIR P RN IV Albumin Human (ALBUMINAR 25%) 100 ML ONCE ONE IV (DC) Potassium Chloride (POTASSIUM CHLORIDE 20MEQ TAB .ER) 40 MEQ ONCE ONE PO (DC) Epinephrine (ADRENALIN CHLORIDE) 4 MG ASDIR IV ( DC) Dextrose/Water (DEXTROSE 5% WATER) 246 ML Pantoprazole (PROTONIX) 40 MG DAILY PO Acetazolamide (DIAMOX) 250 MG ONCE ONE IV (DC) Sterile Water (WATER FOR INJECTION) 5 ML ASDIR P RN IV (DC) Potassium Phosphate (POTASSIUM PHOSPHATE) 30 MM ONCE ONE IV (DC) Sodium Chloride (SODIUM CHLORIDE 0.9%) 250 ML Furosemide (LASIX 40 mg/4 mL INJECTION) 40 MG Q8 H IV Dexmedetomidine/Sodium Chloride (PRECEDEX 1000MC G/NS 250ML) 250 ML ASDIR IV Amino Acids/Electrolytes/Dextrose (TPN ADULT- CE NTRAL 2000ML) 1,080 ML 2200 IV Potassium Chloride (POTASSIUM CHLORIDE 20MEQ TAB .ER) 40 MEQ ONCE ONE PO (DC) Bisacodyl (DULCOLAX) 10 MG DAILY PRN PRN RECTAL Sterile Water (WATER FOR INJECTION) 5 ML ASDIR P RN IV (DC) Lactulose (LACTULOSE) 20 GM DAILY PRN PRN PO Magnesium Hydroxide (MILK OF MAGNESIA) 30 ML PETER LY PRN PRN PO Aspirin (ASPIRIN) 81 MG DAILY PO Clopidogrel Bisulfate (Plavix) 75 MG DAILY PO Cyanocobalamin (Vitamin B-12 500 mcg tab) 500 MC G DAILY PO Ferrous Sulfate (FERROUS SULFATE) 325 MG DAILY P O Metolazone (metOLazone) 5 MG DAILY PO Polyethylene Glycol (MIRALAX) 17 GM DAILY PO Amino Acids/Electrolytes/Dextrose (TPN ADULT- CE NTRAL 1000ML) 960 ML 2200 IV (DC) Fat Emulsion (FAT EMULSION 20% (INTRALIPID)) 250 ML 2200 IV Atorvastatin Calcium (LIPITOR) 40 MG 2100 PO Docusate Sodium (DOCUSATE SODIUM) 100 MG BID PO Metoprolol Tartrate (LOPRESSOR) 12.5 MG Q12HR P O Senna (SENOKOT) 17.6 MG BEDTIME PO Amiodarone HCl (CORDARONE) 200 MG TID PO Acetaminophen (TYLENOL) 650 MG Q4H PRN PRN PO Tramadol HCl (ULTRAM) 25 MG Q4H PRN PRN PO Tramadol HCl (ULTRAM) 50 MG Q4H PRN PRN PO Insulin Human Regular (HumuLIN R) 100 UNIT ASDIR IV (CKD) Sodium Chloride (SODIUM CHLORIDE 0.9%) 99 ML Furosemide (LASIX 40 mg/4 mL INJECTION) 60 MG Q8 H IV (DC) Acetylcysteine (MUCOMYST FOR RT) 200 MG RTQ6H NE B Albuterol/Ipratropium (DUONEB) 3 ML RTQ6H NEB Bisacodyl (DULCOLAX) 10 MG ONCE PRN RECTAL Dextrose/Water (Dextrose 10% 1,000 mL) 1,000 ML ASDIR PRN IV (DC) Miscellaneous Information (TPN (Central) PHARMAC Y TO DOSE) 1 EACH ASDIR IV (DC) Dopamine HCl/Dextrose (DOPamine 400MG/D5W 250ML) 250 ML ASDIR IV Milrinone Lactate/Dextrose (MILRINONE 20MG/D5W 1 00ML) 100 ML ASDIR IV ( CKD) Vasopressin (VASOSTRICT 20 Unit/NS 100ML) 100 ML ASDIR IV (CKD) Acetaminophen (TYLENOL) 650 MG Q4H PRN PRN RECTA L Calcium Chloride (CALCIUM CHLORIDE) 1 GM ASDIR P RN IV Dextrose/Water (DEXTROSE 10% IN WATER) 125 ML DIR PRN IV (CKD) Dextrose/Water (DEXTROSE 10% IN WATER) 250 ML A SDIR PRN IV (CKD) Epinephrine (ADRENALIN CHLORIDE) 5 MG ASDIR IV ( DC) Dextrose/Water (DEXTROSE 5% WATER) 245 ML Glucagon (GLUCAGON) 1 MG ASDIR PRN IM Magnesium Sulfate (MAGNESIUM SULFATE 4GM/SWFI 10 0ML) 100 ML ASDIR PRN IV Magnesium Sulfate (MAGNESIUM SULFATE 2GM/SWFI 50 ML) 50 ML ASDIR PRN IV Magnesium Sulfate/Dextrose (MAGNESIUM SULFATE 1G M/D5W 100ML) 100 ML ASDIR PRN IV Nitroglycerin/Dextrose (NITROGLYCERIN 50,000MCG/ D5W 250ML) 250 ML ASDIR IV Norepinephrine Bitartrate (NOREPINEPHRINE 8 MG/N S 250 ML) 250 ML TITRATE IV Potassium Chloride (KCL 20MEQ/SWFI 100ML) 100 ML ASDIR PRN IV Sodium Bicarbonate (SODIUM BICARBONATE) 50 MEQ A SDIR PRN IV Ondansetron HCl (ZOFRAN) 4 MG Q6H PRN PRN IV Vancomycin HCl (VANCOMYCIN HCL) 1,750 MG PREOP O NCALL IV (DC) Sodium Chloride (NS 0.9%) 500 ML Results Findings/data: Laboratory Tests 12/25 12/25 12/25 12/25 1505 1148 1011 0907 Blood Gas Puncture Site Art Line Art Line Art Line Art Li ne O2 Saturation (90 - 100 %) 94.9 96.7 96.5 96.2 ABG pH (7.35 - 7.45) 7.364 7.378 7.362 7.348 L ABG pCO2 (35.0 - 45 mmHg) 72.3 *H 67.2 *H 65.6 *H 71.0 *H ABG pO2 (80 - 100.0 mmHg) 82.1 93.9 93.1 92.3 ABG PO2/FiO2 Ratio (mm/Hg) 208.66 206.88 123.06 ABG HCO3 (22.0 - 26.0 MMOL/L) 41.2 *H 39.6 *H 3 7.2 *H 39.0 *H ABG Total CO2 43.4 41.6 39.2 41.2 ABG Base Excess (-4.0 - 4.0 MMOL/L) 15.8 H 14.4 H 11.8 H 13.4 H ABG Hematocrit (33.0 - 45.0 %) 25 L 24 L 24 L 2 6 L ABG Hemoglobin (11.0 - 15.0 G/DL) 8.5 L 8.2 L 8 .2 L 9.0 L Sodium (134 - 147 MEQ/L) 146 145 146 145 Potassium (3.4 - 5.0 MEQ/L) 3.7 3.2 L 3.3 L 3.4 Chloride (100 - 108 MEQ/L) 97 L 98 L 99 L 99 L Ionized Calcium (1.12 - 1.32 MMOL/L) 1.36 H 1.3 5 H 1.32 1.37 H Lactic Acid (0.9 - 1.7 mmol/l) 0.7 L 0.6 L 0.6 L 0.7 L O2 Delivery Device HFJV BiPAP BiPAP HFNC FiO2 (%) 45 45 75 12/25 12/24 12/24 0353 2000 1809 Blood Gas Puncture Site Art Line Art Line Art Line O2 Saturation (90 - 100 %) 93.8 96.2 95.5 ABG pH (7.35 - 7.45) 7.393 7.358 7.381 ABG pCO2 (35.0 - 45 mmHg) 67.7 *H 61.0 *H 64.5 *H ABG pO2 (80 - 100.0 mmHg) 73.0 L 89.1 81.9 ABG PO2/FiO2 Ratio (mm/Hg) 97.33 178.20 163.80 ABG HCO3 (22.0 - 26.0 MMOL/L) 41.4 *H 34.4 *H 3 8.3 *H ABG Total CO2 43.5 36.3 40.3 ABG Base Excess (-4.0 - 4.0 MMOL/L) 16.4 H 8.9 H 13.1 H ABG Hematocrit (33.0 - 45.0 %) 25 L 21 L 25 L ABG Hemoglobin (11.0 - 15.0 G/DL) 8.5 L 7.2 L 8.6 L Martin Test N/A Positive N/A Sodium (134 - 147 MEQ/L) 145 150 H 149 H Potassium (3.4 - 5.0 MEQ/L) 3.5 2.9 L 3.4 Chloride (100 - 108 MEQ/L) 97 L 108 102 Ionized Calcium (1.12 - 1.32 MMOL/L) 1.38 H 1.2 9 1.41 H Lactic Acid (0.9 - 1.7 mmol/l) 0.6 L 0.6 L 0.7 L Temperature (F) 98 98.1 97.9 O2 Delivery Device HFNC BiPAP BiPAP Vent Mode BiLevel Vent Rate (/MIN) 26 18 FiO2 (%) 75 50 50 PEEP (cmH2O) 10 10 Pressure Support (cmH2O) 18 Laboratory Tests 12/25 12/25 12/25 12/25 12/25 1507 1505 1500 1150 1148 Chemistry Sodium (134 - 147 mEq/L) 146 146 Potassium (3.4 - 5.0 mEq/L) 3.8 3.4 Chloride (100 - 108 mEq/L) 100 100 Carbon Dioxide (21 - 33 mEq/l) 40 H 40 H Anion Gap (0 - 20) 10 10 BUN (7 - 18 mg/dL) 60 H 61 H Creatinine (0.6 - 1.3 mg/dL) 1.0 0.9 POC Creatinine (0.6 - 1.0 mg/dL) 1.2 H 1.1 H Glomerular Filtr Rate (70 - 80) 53.6 L 60.6 L Glucose (70 - 110 mg/dL) 153 H 146 H POC Glucose (70 - 110 MG/DL) 149 H POC Glucose (mg/dL) (70 - 110 MG/DL) 161 H 147 H Calcium (8.0 - 10.5 mg/dL) 10.6 H 10.3 Phosphorus (2.5 - 4.9 MG/DL) 2.9 2.8 Magnesium (1.80 - 2.40 mg/dL) 2.26 2.29 12/25 12/25 12/25 12/25 12/25 1011 0907 0745 0358 0353 Chemistry Sodium (134 - 147 mEq/L) 145 Potassium (3.4 - 5.0 mEq/L) 3.6 Chloride (100 - 108 mEq/L) 102 Carbon Dioxide (21 - 33 mEq/l) 38 H Anion Gap (0 - 20) 9 BUN (7 - 18 mg/dL) 62 H Creatinine (0.6 - 1.3 mg/dL) 1.0 POC Creatinine (0.6 - 1.0 mg/dL) 0.9 1.1 H 1.2 H Glomerular Filtr Rate (70 - 80) 53.6 L Glucose (70 - 110 mg/dL) 218 H POC Glucose (70 - 110 MG/DL) 229 H POC Glucose (mg/dL) (70 - 110 MG/DL) 162 H 192 H 236 H Calcium (8.0 - 10.5 mg/dL) 10.2 Phosphorus (2.5 - 4.9 MG/DL) 1.0 L Magnesium (1.80 - 2.40 mg/dL) 2.25 Total Bilirubin (0.0 - 1.0 mg/dL) 0.70 AST (15 - 37 IUnit/L) 17 ALT (30 - 65 IUnit/L) 16 L Total Alk Phosphatase (20 - 125 IUnit/L) 73 Total Protein (6.4 - 8.2 g/dL) 6.8 Albumin (3.4 - 5.0 g/dL) 3.90 12/25 12/25 12/24 12/24 12/24 0235 0009 3 2000 1999 Chemistry Sodium (134 - 147 mEq/L) 147 Potassium (3.4 - 5.0 mEq/L) 3.5 Chloride (100 - 108 mEq/L) 106 Carbon Dioxide (21 - 33 mEq/l) 37 H Anion Gap (0 - 20) 7 BUN (7 - 18 mg/dL) 57 H Creatinine (0.6 - 1.3 mg/dL) 0.9 POC Creatinine (0.6 - 1.0 mg/dL) 0.8 Glomerular Filtr Rate (70 - 80) 60.6 L Glucose (70 - 110 mg/dL) 117 H POC Glucose (70 - 110 MG/DL) 209 H 127 H 74 POC Glucose (mg/dL) (70 - 110 MG/DL) 110 Calcium (8.0 - 10.5 mg/dL) 9.9 12/24 12/24 1809 1809 Chemistry POC Creatinine (0.6 - 1.0 mg/dL) 1.2 H POC Glucose (70 - 110 MG/DL) 139 H POC Glucose (mg/dL) (70 - 110 MG/DL) 150 H Laboratory Tests 12/25 1612 Hematology WBC (4.5 - 11.0 x10 3/uL) 6.5 RBC (3.54 - 5.02 x10 6/uL) 2.29 L Hgb (11.0 - 15.0 g/dL) 8.1 L Hct (33.0 - 45.0 %) 24.8 L MCV (81.0 - 99.0 fL) 108.3 H MCH (27.0 - 33.0 pg) 35.4 H MCHC (33.0 - 37.0 g/dL) 32.7 L RDW (11.5 - 14.5 %) 15.9 H Plt Count (150 - 400 x10 3/uL) 146 L MPV (7.0 - 9.0 fL) 11.3 H Neut % (Auto) (56.0 - 77.0 %) 77.4 H Lymph % (Auto) (14.0 - 32.0 %) 4.6 L Barron % (Auto) (4.8 - 9.0 %) 13.8 H Eos % (Auto) (0.3 - 3.7 %) 1.7 Baso % (Auto) (0.0 - 2.0 %) 0.3 Neut # (Auto) (2.0 - 7.6 x10 3/uL) 5.04 Lymph # (Auto) (1.0 - 3.8 x10 3/uL) 0.30 L Barron # (Auto) (0.1 - 0.8 x10 3/uL) 0.90 H Eos # (Auto) (0.0 - 0.2 x10 3/uL) 0.11 Baso # (Auto) (0.0 - 0.2 x10 3/uL) 0.02 Abs Immat Gran (auto) (0.00 - 0.03 x10 3/uL) 0. 14 H Add Manual Diff NO Immature Gran % (0.0 - 2.0 %) 2.2 H Nucleated RBC % (0 - 0 %) 2.2 H Nucleated RBCs # (Man) (0.0 - 0.1 x10 3/uL) 0.1 4 H Laboratory Tests 12/25/21 1500: [Embedded Image Not Available] 12/25/21 1150: [Embedded Image Not Available] 12/25/21 0358: [Embedded Image Not Available] 12/24/21 2000: [Embedded Image Not Available] Radiology data Recent Impressions: RADIOLOGY - XR CHEST 1 V 12/25 0701 Report Impression - Status: SIGNED Entered: 12/25/2021 0906 IMPRESSION: No significant change. Impression By: AureliaABAníbal - Hardik Montanez M.D. 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 S/P MVR (mitral valve replacement) 2. S/P CABG x 1 3. Postoperative pulmonary dysfunction after ca rdiac surgery 4. Severe mitral regurgitation 5. CAD (coronary artery disease) 6. CKD (chronic kidney disease) 7. Immunosuppressed status 8. RONA on CPAP 9. Chronic a-fib 10. Crohn disease Free text A P: 76-year-old morbidly obese f emale with history of HTN, HL, IDDM, smoking, RONA on CPAP and home O2 as needed, macular degeneration , Crohn's disease on immunosuppressant medication s, and chronic Afib s/p ablation and PPM (on Xarelto ), who was admitted recently with heart failure symptoms. Patient underwent elective cardiac cath that s howed severe multivessel coronary artery disease not suitable for percutaneous intervention. 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 She went for surgical revascularization today and preop JORDEN revealed severe mitral regurgitation. After discussing new findings with family, patient underwent MVR (31 M agna valve), CABG x 1 (ROBERTS-LAD), ILAA and pericardectomy on 12/19/2021. Has EF of 45%. Crystalloid 1 L, urine output 700, Cell Saver 700. She is a-paced at [employer] [employer]. Surgery went well and patient was transferred to CVICU pos top in a stable surgical condition. She is currently intubated on 2 mics of epine phrine, 2 mics of Levophed and insulin drip. CI 3.0, SvO2 in 60%s, CVP 15 and PAP in 60s. Remains neuro intact, multimodal pain control, a void opiates Patient needs BiPAP for underlying RONA. Does use home CPAP. BiPAP 18/10. FiO2 is down to 50%. During the day she remained on h igh flow nasal cannula 15 L. Stop TPN today. Has been taking meals during the day. Bowel movement yesterday. Chest x-ray shows still bila teral pulmonary infiltrates. We will ultrasound the right side of the chest tomorrow. Continue aggre ssive bronchodilators and Mucomyst. Chest PT. Continue beta-delma and amiodarone. Blood pres sure has remained stable. Patient is having contraction alkalosis. We will give her Diamox 250 twice daily. Did receive 1 dose of Lasix and metolazon e today. We will hold her further dose of Lasix today and redose her tomor row. Renal following. Patient is on insulin drip for control of her quintana gars. Patient still has [place] for accurate ins and out s Total critical care time 45 minutes Electronically Signed by Ricky Goodwin MD on at 1756 RPT #:[id number] END OF REPORT 2021-12-25 15:58:00-00:00 [facility] Hospitalist Progress Note REPORT#:[id number] REPORT STATUS: Signed DATE:12/25/21 TIME: 1558 PATIENT: SAÚL GILES UNIT #: [id number] ROOM/BED: [place] [id number] : 43 AGE: 76 SEX: F ATTEND: Ayala More MD ADM AUTHOR: Meryl Rosa MD * ALL edits or amendments must be made on the [employer]/computer document * Subjective Chief complaint: she is doing well with PT. no sob acute respiratory failure --post CABG HPI: 76 years old female with PMH of macular degeneration, obesity, obstructive sleep apnea (CPAP at home), former smoker, hypertensio n, hyperlipidemia, diabetes, Crohn's disease, chronic atr ial fibrillation status post 3 ablations in the past (on Xarelto), pacemaker plac cindi is admitted to the hospital post cardiac cath . she need CABG . she had sob for years . sob go t worse . she was admitted to the hospital in [place] . she had cath 3 we eks ago . she was reffered to here for stents placement . she had cath yesterd ay . it show multiple vessels CAD . she is recommend CABG . she still feel sob . no cp no nausea no vomiting no fever no abdominal pain no dizziness . Review of Systems Constitutional: Reports: generalized weakness. Denies: fatigue, lethargy. Respiratory: Denies: SOB, wheezing. Cardiovascular: Reports: edema. Denies: orthopnea, palpitations. GI: Denies: nausea, vomiting. Neuro: Denies: dizziness. Objective General VS/I O: Vital Signs: Date Time Temp Pulse Resp B/P B/P Pulse O2 O2 F low FiO2 Mean Ox Delivery Rate 12/25 1212 73 100 45 12/25 1003 72 100 45 12/25 0952 36.1 72 25 104/39 57 100 / 0946 123/51 74 10/ 0946 36.1 72 25 109/41 60 100 / 0901 129/75 90 10/ 0901 36.0 71 22 132/45 73 99 10/ 0900 36.0 72 20 131/45 72 100 / 0822 73 24 100 50 70 10/ 0822 100 High flow 50 70 nasal cannula 12/25 0801 141/66 85 / 0801 36.0 72 24 150/46 78 100 10/ 0800 BiPAP 45 10/ 0800 36.0 72 25 143/45 77 100 / 0700 36.1 72 22 166/49 85 100 / 0645 153/67 97 10/ 0642 75 23 100 10/ 0600 75 148/60 84 / 0500 36.3 74 22 98 10/ 0408 72 20 98 50 78 10/ 0401 156/63 90 10/ 0401 36.2 71 99 10/ 0400 36.2 73 100 / 0304 36.3 72 99 10/ 0301 36.3 72 20 99 10/ 0300 36.3 72 99 12/25 0224 36.4 72 98 12/25 0204 119/55 77 12/25 0204 36.6 74 24 144/60 87 100 12/25 0202 36.6 72 25 103/46 61 100 12/25 0201 36.6 72 24 103/45 61 100 12/25 0200 36.6 72 22 101/45 60 100 12/25 0101 94/44 64 12/25 0101 36.5 70 25 108/45 61 100 12/25 0100 36.5 69 26 108/45 62 100 12/25 0057 36.5 71 26 112/46 63 100 12/25 0004 151/69 99 12/25 0004 36.4 71 23 98 12/25 0000 36.4 72 25 100 12/24 2300 122/56 81 12/24 2300 36.6 72 166/73 104 99 12/24 2201 111/56 80 12/24 2201 36.6 73 99 12/24 2200 36.6 73 26 100 12/24 2116 140/65 93 12/24 2116 36.5 69 28 99 12/24 2100 137/61 88 12/24 2100 36.7 73 99 12/25 1999 36.7 12/25 1999 BiPAP 45 12/25 1999 111/53 76 12/25 1999 36.7 70 27 134/46 68 100 12/24 1957 71 99 45 12/24 1957 99 BiPAP 45 12/24 1932 113/49 70 12/24 1933 36.6 69 23 142/45 69 100 12/24 1901 140/65 93 12/24 1901 36.6 72 26 157/48 82 100 12/24 1900 36.6 73 26 158/47 83 100 12/24 1800 36.6 72 29 174/58 96 100 12/24 1700 36.7 69 14 126/40 62 100 12/24 1600 36.7 75 25 170/55 90 99 24 hour I O ending at 0700: 12/25 0700 12/24 1900 Intake Total 1222.00 1508.00 Output Total 1600 1700 Balance -378.00 -192.00 Intake, IV 67.00 296.00 Intake, Lipid 139 110 Intake, Oral 500 720 Intake, 516 382 TPN/PPN Number 1 2 Bowel Movements Output, Urine 1600 1700 Patient 121.5 kg Weight Weight Standing scale Measurement Method PATIENT WEIGHT: Weight (lb): 267 Weight (oz): 13.79 Weight (kg): 121.500 Medications: Active Meds + DC'd Last 24 Hrs Potassium Phos/Sodium Phos (NEUTRA-PHOS) 1 UDPKT TID PO Acetazolamide (DIAMOX) 250 MG ONCE ONE IV (DC) Sterile Water (WATER FOR INJECTION) 5 ML ASDIR P RN IV Albumin Human (ALBUMINAR 25%) 100 ML ONCE ONE IV (DC) Potassium Chloride (POTASSIUM CHLORIDE 20MEQ TAB .ER) 40 MEQ ONCE ONE PO (DC) Epinephrine (ADRENALIN CHLORIDE) 4 MG ASDIR IV ( DC) Dextrose/Water (DEXTROSE 5% WATER) 246 ML Pantoprazole (PROTONIX) 40 MG DAILY PO Acetazolamide (DIAMOX) 250 MG ONCE ONE IV (DC) Sterile Water (WATER FOR INJECTION) 5 ML ASDIR P RN IV (DC) Potassium Phosphate (POTASSIUM PHOSPHATE) 30 MM ONCE ONE IV (DC) Sodium Chloride (SODIUM CHLORIDE 0.9%) 250 ML Furosemide (LASIX 40 mg/4 mL INJECTION) 40 MG Q8 H IV Dexmedetomidine/Sodium Chloride (PRECEDEX 1000MC G/NS 250ML) 250 ML ASDIR IV Amino Acids/Electrolytes/Dextrose (TPN ADULT- CE NTRAL 2000ML) 1,080 ML 2200 IV Potassium Chloride (POTASSIUM CHLORIDE 20MEQ TAB .ER) 40 MEQ ONCE ONE PO (DC) Bisacodyl (DULCOLAX) 10 MG DAILY PRN PRN RECTAL Sterile Water (WATER FOR INJECTION) 5 ML ASDIR P RN IV (DC) Lactulose (LACTULOSE) 20 GM DAILY PRN PRN PO Magnesium Hydroxide (MILK OF MAGNESIA) 30 ML PETER LY PRN PRN PO Aspirin (ASPIRIN) 81 MG DAILY PO Clopidogrel Bisulfate (Plavix) 75 MG DAILY PO Cyanocobalamin (Vitamin B-12 500 mcg tab) 500 MC G DAILY PO Ferrous Sulfate (FERROUS SULFATE) 325 MG DAILY P O Metolazone (metOLazone) 5 MG DAILY PO Polyethylene Glycol (MIRALAX) 17 GM DAILY PO Amino Acids/Electrolytes/Dextrose (TPN ADULT- CE NTRAL 1000ML) 960 ML 2200 IV (DC) Fat Emulsion (FAT EMULSION 20% (INTRALIPID)) 250 ML 2200 IV Atorvastatin Calcium (LIPITOR) 40 MG 2100 PO Docusate Sodium (DOCUSATE SODIUM) 100 MG BID PO Metoprolol Tartrate (LOPRESSOR) 12.5 MG Q12HR PO Senna (SENOKOT) 17.6 MG BEDTIME PO Amiodarone HCl (CORDARONE) 200 MG TID PO Acetaminophen (TYLENOL) 650 MG Q4H PRN PRN PO Tramadol HCl (ULTRAM) 25 MG Q4H PRN PRN PO Tramadol HCl (ULTRAM) 50 MG Q4H PRN PRN PO Insulin Human Regular (HumuLIN R) 100 UNIT ASDIR IV (CKD) Sodium Chloride (SODIUM CHLORIDE 0.9%) 99 ML Furosemide (LASIX 40 mg/4 mL INJECTION) 60 MG Q8 H IV (DC) Acetylcysteine (MUCOMYST FOR RT) 200 MG RTQ6H NE B Albuterol/Ipratropium (DUONEB) 3 ML RTQ6H NEB Bisacodyl (DULCOLAX) 10 MG ONCE PRN RECTAL Dextrose/Water (Dextrose 10% 1,000 mL) 1,000 ML ASDIR PRN IV (DC) Miscellaneous Information (TPN (Central) PHARMAC Y TO DOSE) 1 EACH ASDIR IV (DC) Dopamine HCl/Dextrose (DOPamine 400MG/D5W 250ML) 250 ML ASDIR IV Milrinone Lactate/Dextrose (MILRINONE 20MG/D5W 1 00ML) 100 ML ASDIR IV ( CKD) Vasopressin (VASOSTRICT 20 Unit/NS 100ML) 100 ML ASDIR IV (CKD) Acetaminophen (TYLENOL) 650 MG Q4H PRN PRN RECTA L Calcium Chloride (CALCIUM CHLORIDE) 1 GM ASDIR P RN IV Dextrose/Water (DEXTROSE 10% IN WATER) 125 ML A SDIR PRN IV (CKD) Dextrose/Water (DEXTROSE 10% IN WATER) 250 ML DIR PRN IV (CKD) Epinephrine (ADRENALIN CHLORIDE) 5 MG ASDIR IV ( DC) Dextrose/Water (DEXTROSE 5% WATER) 245 ML Glucagon (GLUCAGON) 1 MG ASDIR PRN IM Magnesium Sulfate (MAGNESIUM SULFATE 4GM/SWFI 10 0ML) 100 ML ASDIR PRN IV Magnesium Sulfate (MAGNESIUM SULFATE 2GM/SWFI 50 ML) 50 ML ASDIR PRN IV Magnesium Sulfate/Dextrose (MAGNESIUM SULFATE 1G M/D5W 100ML) 100 ML ASDIR PRN IV Nitroglycerin/Dextrose (NITROGLYCERIN 50,000MCG/ D5W 250ML) 250 ML ASDIR IV Norepinephrine Bitartrate (NOREPINEPHRINE 8 MG/N S 250 ML) 250 ML TITRATE IV Potassium Chloride (KCL 20MEQ/SWFI 100ML) 100 ML ASDIR PRN IV Sodium Bicarbonate (SODIUM BICARBONATE) 50 MEQ A SDIR PRN IV Ondansetron HCl (ZOFRAN) 4 MG Q6H PRN PRN IV Vancomycin HCl (VANCOMYCIN HCL) 1,750 MG PREOP O NCALL IV (DC) Sodium Chloride (NS 0.9%) 500 ML Physical Exam General appearance: alert, awake, oriented Head/Eyes: atraumatic, normal conjunctiva/sclera , normal eyelids/periorb., normocephalic ENT: intubated Neck: full range of motion, non-tender, no JVD Cardiovascular: normal heart sounds, regular rat e rhythm Respiratory: dyspneic, hypercapnia, hypoxia, on oxygen, clear to auscultation Abdomen: non-tender, normal bowel sounds, soft, no distention Extremities: edema, moves all, no calf tendernes s 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, 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 Skin: dry, intact Results Findings/Data: Laboratory Tests 12/25 12/25 12/25 12/25 1505 1148 1011 0907 Blood Gas Puncture Site Art Line Art Line Art Line Art Li ne O2 Saturation (90 - 100 %) 94.9 96.7 96.5 96.2 ABG pH (7.35 - 7.45) 7.364 7.378 7.362 7.348 L ABG pCO2 (35.0 - 45 mmHg) 72.3 *H 67.2 *H 65.6 *H 71.0 *H ABG pO2 (80 - 100.0 mmHg) 82.1 93.9 93.1 92.3 ABG PO2/FiO2 Ratio (mm/Hg) 208.66 206.88 123.06 ABG HCO3 (22.0 - 26.0 MMOL/L) 41.2 *H 39.6 *H 3 7.2 *H 39.0 *H ABG Total CO2 43.4 41.6 39.2 41.2 ABG Base Excess (-4.0 - 4.0 MMOL/L) 15.8 H 14.4 H 11.8 H 13.4 H ABG Hematocrit (33.0 - 45.0 %) 25 L 24 L 24 L 2 6 L ABG Hemoglobin (11.0 - 15.0 G/DL) 8.5 L 8.2 L 8 .2 L 9.0 L Sodium (134 - 147 MEQ/L) 146 145 146 145 Potassium (3.4 - 5.0 MEQ/L) 3.7 3.2 L 3.3 L 3.4 Chloride (100 - 108 MEQ/L) 97 L 98 L 99 L 99 L Ionized Calcium (1.12 - 1.32 MMOL/L) 1.36 H 1.3 5 H 1.32 1.37 H Lactic Acid (0.9 - 1.7 mmol/l) 0.7 L 0.6 L 0.6 L 0.7 L O2 Delivery Device HFJV BiPAP BiPAP HFNC FiO2 (%) 45 45 75 12/25 12/24 12/24 0353 2000 180 Blood Gas Puncture Site Art Line Art Line Art Line O2 Saturation (90 - 100 %) 93.8 96.2 95.5 ABG pH (7.35 - 7.45) 7.393 7.358 7.381 ABG pCO2 (35.0 - 45 mmHg) 67.7 *H 61.0 *H 64.5 *H ABG pO2 (80 - 100.0 mmHg) 73.0 L 89.1 81.9 ABG PO2/FiO2 Ratio (mm/Hg) 97.33 178.20 163.80 ABG HCO3 (22.0 - 26.0 MMOL/L) 41.4 *H 34.4 *H 3 8.3 *H ABG Total CO2 43.5 36.3 40.3 ABG Base Excess (-4.0 - 4.0 MMOL/L) 16.4 H 8.9 H 13.1 H ABG Hematocrit (33.0 - 45.0 %) 25 L 21 L 25 L ABG Hemoglobin (11.0 - 15.0 G/DL) 8.5 L 7.2 L 8.6 L Martin Test N/A Positive N/A Sodium (134 - 147 MEQ/L) 145 150 H 149 H Potassium (3.4 - 5.0 MEQ/L) 3.5 2.9 L 3.4 Chloride (100 - 108 MEQ/L) 97 L 108 102 Ionized Calcium (1.12 - 1.32 MMOL/L) 1.38 H 1.2 9 1.41 H Lactic Acid (0.9 - 1.7 mmol/l) 0.6 L 0.6 L 0.7 L Temperature (F) 98 98.1 97.9 O2 Delivery Device HFNC BiPAP BiPAP Vent Mode BiLevel Vent Rate (/MIN) 26 18 FiO2 (%) 75 50 50 PEEP (cmH2O) 10 10 Pressure Support (cmH2O) 18 Laboratory Tests 12/25 12/25 12/25 12/25 12/25 1507 1505 1150 1148 1011 Chemistry Sodium (134 - 147 mEq/L) 146 Potassium (3.4 - 5.0 mEq/L) 3.4 Chloride (100 - 108 mEq/L) 100 Carbon Dioxide (21 - 33 mEq/l) 40 H Anion Gap (0 - 20) 10 BUN (7 - 18 mg/dL) 61 H Creatinine (0.6 - 1.3 mg/dL) 0.9 POC Creatinine (0.6 - 1.0 mg/dL) 1.2 H 1.1 H 0 .9 Glomerular Filtr Rate (70 - 80) 60.6 L Glucose (70 - 110 mg/dL) 146 H POC Glucose (70 - 110 MG/DL) 149 H POC Glucose (mg/dL) (70 - 110 MG/DL) 161 H 147 H 162 H Calcium (8.0 - 10.5 mg/dL) 10.3 Phosphorus (2.5 - 4.9 MG/DL) 2.8 Magnesium (1.80 - 2.40 mg/dL) 2.29 12/25 12/25 12/25 12/25 12/25 0907 0745 0358 0353 0235 Chemistry Sodium (134 - 147 mEq/L) 145 Potassium (3.4 - 5.0 mEq/L) 3.6 Chloride (100 - 108 mEq/L) 102 Carbon Dioxide (21 - 33 mEq/l) 38 H Anion Gap (0 - 20) 9 BUN (7 - 18 mg/dL) 62 H Creatinine (0.6 - 1.3 mg/dL) 1.0 POC Creatinine (0.6 - 1.0 mg/dL) 1.1 H 1.2 H Glomerular Filtr Rate (70 - 80) 53.6 L Glucose (70 - 110 mg/dL) 218 H POC Glucose (70 - 110 MG/DL) 229 H 209 H POC Glucose (mg/dL) (70 - 110 MG/DL) 192 H 236 H Calcium (8.0 - 10.5 mg/dL) 10.2 Phosphorus (2.5 - 4.9 MG/DL) 1.0 L Magnesium (1.80 - 2.40 mg/dL) 2.25 Total Bilirubin (0.0 - 1.0 mg/dL) 0.70 AST (15 - 37 IUnit/L) 17 ALT (30 - 65 IUnit/L) 16 L Total Alk Phosphatase (20 - 125 73 IUnit/L) Total Protein (6.4 - 8.2 g/dL) 6.8 Albumin (3.4 - 5.0 g/dL) 3.90 12/25 12/24 12/24 12/24 12/24 0009 2213 2000 1999 180 Chemistry Sodium (134 - 147 mEq/L) 147 Potassium (3.4 - 5.0 mEq/L) 3.5 Chloride (100 - 108 mEq/L) 106 Carbon Dioxide (21 - 33 mEq/l) 37 H Anion Gap (0 - 20) 7 BUN (7 - 18 mg/dL) 57 H Creatinine (0.6 - 1.3 mg/dL) 0.9 POC Creatinine (0.6 - 1.0 mg/dL) 0.8 Glomerular Filtr Rate (70 - 80) 60.6 L Glucose (70 - 110 mg/dL) 117 H POC Glucose (70 - 110 MG/DL) 127 H 74 139 H POC Glucose (mg/dL) (70 - 110 MG/DL) 110 Calcium (8.0 - 10.5 mg/dL) 9.9 12/24 12/24 180 1654 Chemistry POC Creatinine (0.6 - 1.0 mg/dL) 1.2 H POC Glucose (70 - 110 MG/DL) 170 H POC Glucose (mg/dL) (70 - 110 MG/DL) 150 H Laboratory Tests 12/25 0358 Hematology WBC (4.5 - 11.0 x10 3/uL) 6.5 RBC (3.54 - 5.02 x10 6/uL) 2.29 L Hgb (11.0 - 15.0 g/dL) 8.1 L Hct (33.0 - 45.0 %) 24.8 L MCV (81.0 - 99.0 fL) 108.3 H MCH (27.0 - 33.0 pg) 35.4 H MCHC (33.0 - 37.0 g/dL) 32.7 L RDW (11.5 - 14.5 %) 15.9 H Plt Count (150 - 400 x10 3/uL) 146 L MPV (7.0 - 9.0 fL) 11.3 H Neut % (Auto) (56.0 - 77.0 %) 77.4 H Lymph % (Auto) (14.0 - 32.0 %) 4.6 L Barron % (Auto) (4.8 - 9.0 %) 13.8 H Eos % (Auto) (0.3 - 3.7 %) 1.7 Baso % (Auto) (0.0 - 2.0 %) 0.3 Neut # (Auto) (2.0 - 7.6 x10 3/uL) 5.04 Lymph # (Auto) (1.0 - 3.8 x10 3/uL) 0.30 L Barron # (Auto) (0.1 - 0.8 x10 3/uL) 0.90 H Eos # (Auto) (0.0 - 0.2 x10 3/uL) 0.11 Baso # (Auto) (0.0 - 0.2 x10 3/uL) 0.02 Abs Immat Gran (auto) (0.00 - 0.03 x10 3/uL) 0 .14 H Add Manual Diff NO Immature Gran % (0.0 - 2.0 %) 2.2 H Nucleated RBC % (0 - 0 %) 2.2 H Nucleated RBCs # (Man) (0.0 - 0.1 x10 3/uL) 0.1 4 H Treatment Prophylaxis Treatment Prophylaxis Drain(s)/tube(s): Drain(s)/tube(s): chest (x3) Diagnosis, Assessment Plan Consultants: cardiology, cardiovascular surgery Free Text DxA P Notes Free text DxA P notes: 76 years old female with PMH of macular degeneration, obesity, obstructive sleep apnea (CPAP at home), former smoker, hypertensio n, hyperlipidemia, diabetes, Crohn's disease, chronic atr ial fibrillation status post 3 ablations in the past (on Xarelto), pacemaker placement CAD -- multiple vesssels HTN DM HLD Crohn's disease chronic atrial fibrillation status post 3 ablati ons macular degeneration obesity obstructive sleep apnea acute respiratory failure --post surgery severe mitral valve regurgitation constrictive pericarditis CAD -- cardiology consult CV surgeon consult CABG -- AM ASA/lipitor afib -- rate control -- hold xarelto for surgery HTN-- continue home med DM-- on lantus -- sliding scale HLD-- on lipitor RONA--cpap as need DVTP -- heparin 12/18- feel sob -- CABG -- afternoon 12/19--post MVR (31 Magna valve), CABG x 1 (ROBERTS- LAD), ILAA and pericardectomy -- she remain intubated on the vent -- chest tube are in place -on levophed and epinephrine drip -- monitor in CCU 12/20- she was extubated --on bipap now -- NPO --off Levophed/epinephrine, continue vasopressi n, inotropes with milrinone, -- chest tube remain in place -- she is stable post surgery 12/21-- she is on high flow O2 -- edema --lasix --chest tube in place --- she is hemodynamic stable -- continue monitor in CCU 12/22- she remain on high O2 CXR show worsening pulmonary venous vascular co ngestion. --lasix iv tid -- chest tube are out -- off drips -- NPO -- start TPN -- continue monitor in CCU 12/23- she remain on high flow O2 --less edema -- on TPN -- she is hemodynamic stable -- continue monitor in CVICU 12/24- she get better -- she is out bed and sit on the chair -- start ambulate with PT -- continue current management 12/25- she is doing well with PT remain on o2 continue iv lasix / add diamox continue supportive care continue monitor in CVICU review all image and consultants notes Current Medications Sig/Fabby Start time Last Medication Dose Route Stop Time Status Admin Amlodipine Besylate 5 MG DAILY 12/18 899 AC PO 01/17 0859 Furosemide 10 MG DAILY 12/18 899 AC PO 01/17 0859 Lisinopril 40 MG DAILY 12/18 899 AC PO 01/16 1214 Losartan Potassium 100 MG DAILY 12/18 899 AC PO 01/17 08 Metolazone 10 MG DAILY 12/18 899 AC PO 01/17 08 Pantoprazole 40 MG DAILY@0600 12/18 599 AC PO 01/17 0559 Cefazolin Sodium 3 GM PREOP ONCALL 12/18 0500 C KD Sodium Chloride 250 ML IV 12/18 235 Metoprolol Tartrate 6.25 MG ONCE ONE 12/18 499 AC PO 12/18 050 Vancomycin HCl 1,750 MG PREOP ONCALL 12/18 499 DC Sodium Chloride 500 ML IV 12/18 235 Vancomycin HCl 1,750 MG PREOP ONCALL 12/18 499 CKD Sodium Chloride 500 ML IV 12/25 458 Verapamil HCl 16.6 MG .Q24H ONE 12/18 499 CKD Heparin Sodium 1,660 UNIT IV 12/19 458 (Porcine) Sodium Bicarbonate 0.7 ML Nitroglycerin/ 8.3 MG Dextrose Lactated Ringer's 949.5 ML Clonidine HCl 0.3 MG BID 12/17 2099 AC PO 01/16 2059 Doxazosin Mesylate 4 MG BEDTIME 12/17 2099 AC PO 01/16 2059 Insulin Glargine 50 UNIT BID 12/17 2099 AC SUBQ 01/16 205 Insulin Human Lispro 0 AC HS 12/17 2099 AC SUBQ 01/16 2059 Pravastatin Sodium 10 MG 2100 12/17 2099 AC PO 01/16 205 Dextrose/Water 125 ML ASDIR PRN 12/17 1800 CKD IV 01/16 175 Dextrose/Water 250 ML ASDIR PRN 12/17 1800 CKD IV 01/16 1759 Glucagon 1 MG ASDIR PRN 12/17 1800 AC IM 01/16 1759 Atropine Sulfate 0.5 MG ASDIR PRN 12/17 1200 A C IV 12/18 1158 Sodium Chloride 1,000 ML .[id number] 12/17 1200 AC 12/17 IV 12/17 1839 1404 Sodium Chloride 500 ML ASDIR PRN 12/17 1200 AC IV 12/18 1158 Adenosine 0 .STK-MED ONE 12/17 1052 DC IV Sodium Chloride 50 ML .STK-MED ONE 12/17 1052 D C IV Iopamidol 100 ML .STK-MED ONE 12/17 1034 DC IV 12/17 103 1034 Fentanyl Citrate 0 .STK-MED ONE 12/17 1019 DC 1 0/05 .ROUTE 1030 Midazolam HCl 0 .STK-MED ONE 12/17 1019 DC 10/0 5 .ROUTE 1030 Heparin Sodium/ 500 ML .STK-MED ONE 12/17 0949 DC 10/05 Sodium Chloride IV 1030 Heparin Sodium 0 .STK-MED ONE 12/17 0940 DC 10 05 .ROUTE 1030 Heparin Sodium/ 1,000 ML .STK-MED ONE 12/17 094 0 DC 10/ Sodium Chloride IV 1030 Heparin Sodium/ 500 ML .STK-MED ONE 12/17 0940 DC 10/05 Sodium Chloride IV 1030 Lidocaine HCl 0 .STK-MED ONE 12/17 0940 DC 10 05 .ROUTE 1030 Nitroglycerin/ 250 ML .STK-MED ONE 12/18 939 DC 10 Dextrose IV 1030 Verapamil HCl 0 .STK-MED ONE 12/17 0940 DC 10/0 5 IV 1030 Home Medications: RIVAROXABAN (XARELTO) 20 MG PO DAILY amLODIPine (NORVASC) 5 MG PO DAILY cloNIDine (CATAPRES) 0.3 MG PO BID DOXAZOSIN (CARDURA) LISINOPRIL (ZESTRIL) OLMESARTAN (BENICAR) 40 MG PO DAILY PRAVASTATIN (PRAVACHOL) FUROSEMIDE (LASIX) 10 MG PO DAILY METOLAZONE (ZAROXOLYN) 10 MG PO DAILY POTASSIUM CHLORIDE ER (MICRO-K) 10 MEQ PO DAILY OMEPRAZOLE ER 20 MG PO DAILY GLIMEPIRIDE (AMARYL) 4 MG PO DAILY INSULIN DETEMIR (LEVEMIR FlexTouch (15mL)) 50 UN ITS SUBQ BID INSULIN LISPRO (HumaLOG CARTRIDGE (15mL)) 0 UNIT S SUBQ TID LIRAGLUTIDE (VICTOZA (6mL)) 1.8 MG SUBQ DAILY metFORMIN (GLUCOPHAGE) 1,000 MG PO BID ADALIMUMAB + SUPPLIES (HUMIRA PREFILLED PEN) 40 MG SUBQ Q14D azaTHIOprine (IMURAN) 50 MG PO DAILY Quality: Gen Med Crit Care Current Medications Current medication review: Home Medications: RIVAROXABAN (XARELTO) 20 MG PO DAILY amLODIPine (NORVASC) 5 MG PO DAILY cloNIDine (CATAPRES) 0.3 MG PO BID DOXAZOSIN (CARDURA) LISINOPRIL (ZESTRIL) OLMESARTAN (BENICAR) 40 MG PO DAILY PRAVASTATIN (PRAVACHOL) FUROSEMIDE (LASIX) 10 MG PO DAILY METOLAZONE (ZAROXOLYN) 10 MG PO DAILY POTASSIUM CHLORIDE ER (MICRO-K) 10 MEQ PO DAILY OMEPRAZOLE ER 20 MG PO DAILY GLIMEPIRIDE (AMARYL) 4 MG PO DAILY INSULIN DETEMIR (LEVEMIR FlexTouch (15mL)) 50 UN ITS SUBQ BID INSULIN LISPRO (HumaLOG CARTRIDGE (15mL)) 0 UNIT S SUBQ TID LIRAGLUTIDE (VICTOZA (6mL)) 1.8 MG SUBQ DAILY metFORMIN (GLUCOPHAGE) 1,000 MG PO BID ADALIMUMAB + SUPPLIES (HUMIRA PREFILLED PEN) 40 MG SUBQ Q14D azaTHIOprine (IMURAN) 50 MG PO DAILY I attest that the foregoing medication list in [facility] medical record is true, accurate, and complete to the best of my knowled ge. 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 * ALL edits or amendments must be made on the [employer]/computer document * Subjective Comments: Awake, alert, on NC, generalized edema Objective General VS/I O: 24 hour I O ending at 0700: 12/25 0700 12/24 1900 Intake Total 1222.00 1508.00 Output Total 1600 1700 Balance -378.00 -192.00 Intake, IV 67.00 296.00 Intake, Lipid 139 110 Intake, Oral 500 720 Intake, 516 382 TPN/PPN Number 1 2 Bowel Movements Output, Urine 1600 1700 Patient 121.5 kg Weight Weight Standing scale Measurement Method Vital Signs: Date Time Temp Pulse Resp B/P B/P Pulse O2 O2 F low FiO2 Mean Ox Delivery Rate 12/25 1212 73 100 45 / 1003 72 100 45 12/25 0952 36.1 72 25 104/39 57 100 12/25 0946 123/51 74 12/25 0946 36.1 72 25 109/41 60 100 12/25 0901 129/75 90 12/25 0901 36.0 71 22 132/45 73 99 12/25 0900 36.0 72 20 131/45 72 100 12/25 0822 73 24 100 50 70 12/25 0822 100 High flow 50 70 nasal cannula 12/25 0801 141/66 85 12/25 0801 36.0 72 24 150/46 78 100 12/25 0800 BiPAP 45 12/25 0800 36.0 72 25 143/45 77 100 12/25 0700 36.1 72 22 166/49 85 100 12/25 0645 153/67 97 12/25 0642 75 23 100 12/25 0600 75 148/60 84 12/25 0500 36.3 74 22 98 12/25 0408 72 20 98 50 78 12/25 0401 156/63 90 12/25 0401 36.2 71 99 12/25 0400 36.2 73 100 12/25 0304 36.3 72 99 12/25 0301 36.3 72 20 99 12/25 0300 36.3 72 99 12/25 0224 36.4 72 98 12/25 0204 119/55 77 12/25 0204 36.6 74 24 144/60 87 100 12/25 0202 36.6 72 25 103/46 61 100 12/25 0201 36.6 72 24 103/45 61 100 12/25 0200 36.6 72 22 101/45 60 100 / 0101 94/44 64 / 0101 36.5 70 25 108/45 61 100 / 0100 36.5 69 26 108/45 62 100 12/25 0057 36.5 71 26 112/46 63 100 12/25 0004 151/69 99 12/25 0004 36.4 71 23 98 12/25 0000 36.4 72 25 100 12/24 2300 122/56 81 12/24 2300 36.6 72 166/73 104 99 12/24 2201 111/56 80 1012 220 36.6 73 99 12/24 2199 36.6 73 26 100 12/25 2115 140/65 93 12/25 2115 36.5 69 28 99 12/24 2100 137/61 88 12/24 2100 36.7 73 99 12/25 1999 36.7 12/25 1999 BiPAP 45 12/25 1999 111/53 76 12/25 1999 36.7 70 27 134/46 68 100 12/24 1957 71 99 45 12/24 1957 99 BiPAP 45 12/24 1932 113/49 70 12/24 193 36.6 69 23 142/45 69 100 12/24 1901 140/65 93 12/24 1901 36.6 72 26 157/48 82 100 12/24 1900 36.6 73 26 158/47 83 100 12/24 1800 36.6 72 29 174/58 96 100 12/24 1700 36.7 69 14 126/40 62 100 12/24 1600 36.7 75 25 170/55 90 99 12/24 1500 36.6 71 37 163/48 78 87 PATIENT WEIGHT: Weight (lb): 267 Weight (oz): 13.79 Weight (kg): 121.500 Medications: Active Meds + DC'd Last 24 Hrs Potassium Phos/Sodium Phos (NEUTRA-PHOS) 1 UDPKT TID PO Albumin Human (ALBUMINAR 25%) 100 ML ONCE ONE IV (DC) Potassium Chloride (POTASSIUM CHLORIDE 20MEQ TAB .ER) 40 MEQ ONCE ONE PO (DC) Epinephrine (ADRENALIN CHLORIDE) 4 MG ASDIR IV ( DC) Dextrose/Water (DEXTROSE 5% WATER) 246 ML Pantoprazole (PROTONIX) 40 MG DAILY PO Acetazolamide (DIAMOX) 250 MG ONCE ONE IV (DC) Sterile Water (WATER FOR INJECTION) 5 ML ASDIR P RN IV Potassium Phosphate (POTASSIUM PHOSPHATE) 30 MM ONCE ONE IV (DC) Sodium Chloride (SODIUM CHLORIDE 0.9%) 250 ML Furosemide (LASIX 40 mg/4 mL INJECTION) 40 MG Q8 H IV Dexmedetomidine/Sodium Chloride (PRECEDEX 1000MC G/NS 250ML) 250 ML ASDIR IV Amino Acids/Electrolytes/Dextrose (TPN ADULT- CE NTRAL 2000ML) 1,080 ML 2200 IV Potassium Chloride (POTASSIUM CHLORIDE 20MEQ TAB .ER) 40 MEQ ONCE ONE PO (DC) Bisacodyl (DULCOLAX) 10 MG DAILY PRN PRN RECTAL Acetazolamide (DIAMOX) 250 MG ONCE ONE IV (DC) Sterile Water (WATER FOR INJECTION) 5 ML ASDIR P RN IV (DC) Lactulose (LACTULOSE) 20 GM DAILY PRN PRN PO Magnesium Hydroxide (MILK OF MAGNESIA) 30 ML PETER LY PRN PRN PO Aspirin (ASPIRIN) 81 MG DAILY PO Clopidogrel Bisulfate (Plavix) 75 MG DAILY PO Cyanocobalamin (Vitamin B-12 500 mcg tab) 500 MC G DAILY PO Ferrous Sulfate (FERROUS SULFATE) 325 MG DAILY P O Metolazone (metOLazone) 5 MG DAILY PO Polyethylene Glycol (MIRALAX) 17 GM DAILY PO Amino Acids/Electrolytes/Dextrose (TPN ADULT- CE NTRAL 1000ML) 960 ML 2200 IV (DC) Fat Emulsion (FAT EMULSION 20% (INTRALIPID)) 250 ML 2200 IV Atorvastatin Calcium (LIPITOR) 40 MG 2100 PO Docusate Sodium (DOCUSATE SODIUM) 100 MG BID PO Metoprolol Tartrate (LOPRESSOR) 12.5 MG Q12HR PO Senna (SENOKOT) 17.6 MG BEDTIME PO Amiodarone HCl (CORDARONE) 200 MG TID PO Acetaminophen (TYLENOL) 650 MG Q4H PRN PRN PO Tramadol HCl (ULTRAM) 25 MG Q4H PRN PRN PO Tramadol HCl (ULTRAM) 50 MG Q4H PRN PRN PO Insulin Human Regular (HumuLIN R) 100 UNIT ASDIR IV (CKD) Sodium Chloride (SODIUM CHLORIDE 0.9%) 99 ML Furosemide (LASIX 40 mg/4 mL INJECTION) 60 MG Q8 H IV (DC) Acetylcysteine (MUCOMYST FOR RT) 200 MG RTQ6H NE B Albuterol/Ipratropium (DUONEB) 3 ML RTQ6H NEB Bisacodyl (DULCOLAX) 10 MG ONCE PRN RECTAL Dextrose/Water (Dextrose 10% 1,000 mL) 1,000 ML ASDIR PRN IV (DC) Miscellaneous Information (TPN (Central) PHARMAC Y TO DOSE) 1 EACH ASDIR IV (DC) Dopamine HCl/Dextrose (DOPamine 400MG/D5W 250ML) 250 ML ASDIR IV Milrinone Lactate/Dextrose (MILRINONE 20MG/D5W 1 00ML) 100 ML ASDIR IV ( CKD) Vasopressin (VASOSTRICT 20 Unit/NS 100ML) 100 ML ASDIR IV (CKD) Acetaminophen (TYLENOL) 650 MG Q4H PRN PRN RECTA L Calcium Chloride (CALCIUM CHLORIDE) 1 GM ASDIR P RN IV Dextrose/Water (DEXTROSE 10% IN WATER) 125 ML DIR PRN IV (CKD) Dextrose/Water (DEXTROSE 10% IN WATER) 250 ML DIR PRN IV (CKD) Epinephrine (ADRENALIN CHLORIDE) 5 MG ASDIR IV ( DC) Dextrose/Water (DEXTROSE 5% WATER) 245 ML Glucagon (GLUCAGON) 1 MG ASDIR PRN IM Magnesium Sulfate (MAGNESIUM SULFATE 4GM/SWFI 10 0ML) 100 ML ASDIR PRN IV Magnesium Sulfate (MAGNESIUM SULFATE 2GM/SWFI 50 ML) 50 ML ASDIR PRN IV Magnesium Sulfate/Dextrose (MAGNESIUM SULFATE 1G M/D5W 100ML) 100 ML ASDIR PRN IV Nitroglycerin/Dextrose (NITROGLYCERIN 50,000MCG/ D5W 250ML) 250 ML ASDIR IV Norepinephrine Bitartrate (NOREPINEPHRINE 8 MG/N S 250 ML) 250 ML TITRATE IV Potassium Chloride (KCL 20MEQ/SWFI 100ML) 100 ML ASDIR PRN IV Sodium Bicarbonate (SODIUM BICARBONATE) 50 MEQ A SDIR PRN IV Ondansetron HCl (ZOFRAN) 4 MG Q6H PRN PRN IV Vancomycin HCl (VANCOMYCIN HCL) 1,750 MG PREOP O NCALL IV (DC) Sodium Chloride (NS 0.9%) 500 ML Status post: CABG, MVR, and ILAA Physical Exam General appearance: obese, alert, awake, no acut e distress, pleasant, conversational ENT: moist mucosal membranes Neck: no JVD Cardiovascular: CV assessment: regular rate and rhythm Respiratory: decreased breath sounds, on oxygen Abdomen: obese Genitourinary: no flank pain, no urinary cathete r Upper extremity: UE assessment: normal temperature, no edema Lower extremity: LE assessment: edema 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, 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 Skin: dry, intact Psychiatry: normal affect, normal mood Results Findings/Data: Laboratory Tests 12/25 12/25 12/25 12/25 1148 1011 0907 0353 Blood Gas Puncture Site Art Line Art Line Art Line Art Li ne O2 Saturation (90 - 100 %) 96.7 96.5 96.2 93.8 ABG pH (7.35 - 7.45) 7.378 7.362 7.348 L 7.393 ABG pCO2 (35.0 - 45 mmHg) 67.2 *H 65.6 *H 71.0 *H 67.7 *H ABG pO2 (80 - 100.0 mmHg) 93.9 93.1 92.3 73.0 L ABG PO2/FiO2 Ratio (mm/Hg) 208.66 206.88 123.06 97.33 ABG HCO3 (22.0 - 26.0 MMOL/L) 39.6 *H 37.2 *H 3 9.0 *H 41.4 *H ABG Total CO2 41.6 39.2 41.2 43.5 ABG Base Excess (-4.0 - 4.0 MMOL/L) 14.4 H 11.8 H 13.4 H 16.4 H ABG Hematocrit (33.0 - 45.0 %) 24 L 24 L 26 L 2 5 L ABG Hemoglobin (11.0 - 15.0 G/DL) 8.2 L 8.2 L 9 .0 L 8.5 L Martin Test N/A Sodium (134 - 147 MEQ/L) 145 146 145 145 Potassium (3.4 - 5.0 MEQ/L) 3.2 L 3.3 L 3.4 3.5 Chloride (100 - 108 MEQ/L) 98 L 99 L 99 L 97 L Ionized Calcium (1.12 - 1.32 MMOL/L) 1.35 H 1.3 2 1.37 H 1.38 H Lactic Acid (0.9 - 1.7 mmol/l) 0.6 L 0.6 L 0.7 L 0.6 L Temperature (F) 98 O2 Delivery Device BiPAP BiPAP HFNC HFNC FiO2 (%) 45 45 75 75 12/24 1809 Blood Gas Puncture Site Art Line Art Line O2 Saturation (90 - 100 %) 96.2 95.5 ABG pH (7.35 - 7.45) 7.358 7.381 ABG pCO2 (35.0 - 45 mmHg) 61.0 *H 64.5 *H ABG pO2 (80 - 100.0 mmHg) 89.1 81.9 ABG PO2/FiO2 Ratio (mm/Hg) 178.20 163.80 ABG HCO3 (22.0 - 26.0 MMOL/L) 34.4 *H 38.3 *H ABG Total CO2 36.3 40.3 ABG Base Excess (-4.0 - 4.0 MMOL/L) 8.9 H 13.1 H ABG Hematocrit (33.0 - 45.0 %) 21 L 25 L ABG Hemoglobin (11.0 - 15.0 G/DL) 7.2 L 8.6 L Martin Test Positive N/A Sodium (134 - 147 MEQ/L) 150 H 149 H Potassium (3.4 - 5.0 MEQ/L) 2.9 L 3.4 Chloride (100 - 108 MEQ/L) 108 102 Ionized Calcium (1.12 - 1.32 MMOL/L) 1.29 1.41 H Lactic Acid (0.9 - 1.7 mmol/l) 0.6 L 0.7 L Temperature (F) 98.1 97.9 O2 Delivery Device BiPAP BiPAP Vent Mode BiLevel Vent Rate (/MIN) 26 18 FiO2 (%) 50 50 PEEP (cmH2O) 10 10 Pressure Support (cmH2O) 18 Laboratory Tests 12/25 12/25 12/25 12/25 12/25 1150 1148 1011 0907 0745 Chemistry Sodium (134 - 147 mEq/L) 146 Potassium (3.4 - 5.0 mEq/L) 3.4 Chloride (100 - 108 mEq/L) 100 Carbon Dioxide (21 - 33 mEq/l) 40 H Anion Gap (0 - 20) 10 BUN (7 - 18 mg/dL) 61 H Creatinine (0.6 - 1.3 mg/dL) 0.9 POC Creatinine (0.6 - 1.0 mg/dL) 1.1 H 0.9 1.1 H Glomerular Filtr Rate (70 - 80) 60.6 L Glucose (70 - 110 mg/dL) 146 H POC Glucose (70 - 110 MG/DL) 229 H POC Glucose (mg/dL) (70 - 110 MG/DL) 147 H 162 H 192 H Calcium (8.0 - 10.5 mg/dL) 10.3 Phosphorus (2.5 - 4.9 MG/DL) 2.8 Magnesium (1.80 - 2.40 mg/dL) 2.29 12/25 12/25 12/25 12/25 12/24 0358 0353 0235 0009 2213 Chemistry Sodium (134 - 147 mEq/L) 145 Potassium (3.4 - 5.0 mEq/L) 3.6 Chloride (100 - 108 mEq/L) 102 Carbon Dioxide (21 - 33 mEq/l) 38 H Anion Gap (0 - 20) 9 BUN (7 - 18 mg/dL) 62 H Creatinine (0.6 - 1.3 mg/dL) 1.0 POC Creatinine (0.6 - 1.0 mg/dL) 1.2 H Glomerular Filtr Rate (70 - 80) 53.6 L Glucose (70 - 110 mg/dL) 218 H POC Glucose (70 - 110 MG/DL) 209 H 127 H 74 POC Glucose (mg/dL) (70 - 110 MG/DL) 236 H Calcium (8.0 - 10.5 mg/dL) 10.2 Phosphorus (2.5 - 4.9 MG/DL) 1.0 L Magnesium (1.80 - 2.40 mg/dL) 2.25 Total Bilirubin (0.0 - 1.0 mg/dL) 0.70 AST (15 - 37 IUnit/L) 17 ALT (30 - 65 IUnit/L) 16 L Total Alk Phosphatase (20 - 125 73 IUnit/L) Total Protein (6.4 - 8.2 g/dL) 6.8 Albumin (3.4 - 5.0 g/dL) 3.90 12/24 1809 1809 1654 Chemistry Sodium (134 - 147 mEq/L) 147 Potassium (3.4 - 5.0 mEq/L) 3.5 Chloride (100 - 108 mEq/L) 106 Carbon Dioxide (21 - 33 mEq/l) 37 H Anion Gap (0 - 20) 7 BUN (7 - 18 mg/dL) 57 H Creatinine (0.6 - 1.3 mg/dL) 0.9 POC Creatinine (0.6 - 1.0 mg/dL) 0.8 1.2 H Glomerular Filtr Rate (70 - 80) 60.6 L Glucose (70 - 110 mg/dL) 117 H POC Glucose (70 - 110 MG/DL) 139 H 170 H POC Glucose (mg/dL) (70 - 110 MG/DL) 110 150 H Calcium (8.0 - 10.5 mg/dL) 9.9 12/24 1424 Chemistry POC Glucose (70 - 110 MG/DL) 233 H Laboratory Tests 12/25 0358 Hematology WBC (4.5 - 11.0 x10 3/uL) 6.5 RBC (3.54 - 5.02 x10 6/uL) 2.29 L Hgb (11.0 - 15.0 g/dL) 8.1 L Hct (33.0 - 45.0 %) 24.8 L MCV (81.0 - 99.0 fL) 108.3 H MCH (27.0 - 33.0 pg) 35.4 H MCHC (33.0 - 37.0 g/dL) 32.7 L RDW (11.5 - 14.5 %) 15.9 H Plt Count (150 - 400 x10 3/uL) 146 L MPV (7.0 - 9.0 fL) 11.3 H Neut % (Auto) (56.0 - 77.0 %) 77.4 H Lymph % (Auto) (14.0 - 32.0 %) 4.6 L Barron % (Auto) (4.8 - 9.0 %) 13.8 H Eos % (Auto) (0.3 - 3.7 %) 1.7 Baso % (Auto) (0.0 - 2.0 %) 0.3 Neut # (Auto) (2.0 - 7.6 x10 3/uL) 5.04 Lymph # (Auto) (1.0 - 3.8 x10 3/uL) 0.30 L Barron # (Auto) (0.1 - 0.8 x10 3/uL) 0.90 H Eos # (Auto) (0.0 - 0.2 x10 3/uL) 0.11 Baso # (Auto) (0.0 - 0.2 x10 3/uL) 0.02 Abs Immat Gran (auto) (0.00 - 0.03 x10 3/uL) 0 .14 H Add Manual Diff NO Immature Gran % (0.0 - 2.0 %) 2.2 H Nucleated RBC % (0 - 0 %) 2.2 H Nucleated RBCs # (Man) (0.0 - 0.1 x10 3/uL) 0.1 4 H Laboratory Tests 12/25 12/25 1150 0358 Chemistry Magnesium (1.80 - 2.40 mg/dL) 2.29 2.25 Radiology data: Recent Impressions: RADIOLOGY - XR CHEST 1 V 12/25 0701 Report Impression - Status: SIGNED Entered: 12/25/2021 0755 IMPRESSION: No significant change. Impression By: [email or web address] - Hardik Montanez M.D. Telemetry Interpretation: sinus rhythm Diagnosis, Assessment Plan Plan discussed with: patient Free Text DxA P Notes Free Text DxA P Notes: Ms Giles is a 76 y/o Femal w / PMHx: CAD, HLD, T2DM, RONA (CPAP at home), smoker, Crohn's disease, AF s/p ablation (on Xarelto), s /p PPM and lymphedema. Dr. Fortune is consulted for CAD s/p CABG, MVR. - CAD s/p CABG, MVR, and ILAA. post-op per CTS and critical care On Plavix, aspirin, beta-delma, statin volume management per Nephrology - Chr AF s/p PPM/ablation. Rate controlled, pace d rhythm. had ILAA during bypass - HTN. BP stable - HLD. On statins. - Crohn's disease. Per IM. -MARCELLO - resolving per Nephrology -Resp insufficiency on BIPAP per critical care -Diastolic CHF/volume overload negative fluid balance but patient is still vol ume overloaded diuretic management per nephrology/CTS - curren tly on IV lasix 60 mg TID plus Diamox at 1544 Electronically Signed by Aruna Fortune MD on at [address] [facility] #:[id number] END OF REPORT 2021-12-24 18:35:00-00:00 [facility] ([facility]) DT Operative Note REPORT#:[id number] REPORT STATUS: Signed DATE:12/24/21 TIME: 1834 PATIENT: SAÚL GILES UNIT #: [id number] ROOM/BED: [place] [address] : 43 AGE: 76 SEX: F ATTEND: Leah More MD ADM AUTHOR: Ricky Goodwin MD * ALL edits or amendments must be made on the [employer] document * Operative Report Operative Note Note: Arterial line The patient was placed in a ppropriate position for arterial line placement. The patient s radial arteries were very small. Right radial artery was attempted unable to thread the guidewire. The left brachia l artery was ultrasounded and arterial line catheter was placed. The c atheter was attached to the BP monitor and good waveform was shown. The catheter was then sutured in place. Blood loss was minimal. Patient tolerated the procedure well and there w ere no complications Electronically Signed by Ricky Goodwin MD on 1 at 1841 RPT #:[id number] END OF REPORT 2021-12-24 16:56:00-00:00 [facility] Critical Care Progress Note REPORT#:[id number] REPORT STATUS: Signed DATE:12/24/21 TIME: 1655 PATIENT: SAÚL GILES UNIT #: [id number] ROOM/BED: [place] [address] : 43 AGE: 76 SEX: F ATTEND: Leah More MD ADM AUTHOR: Ricky Goodwin MD * ALL edits or amendments must be made on the [employer] document * Subjective Chief complaint: CABG/MVR HPI: 76-year-old morbidly obese f emale with history of HTN, HL, IDDM, smoking, RONA on CPAP and home O2 as needed, macular degeneration , Crohn's disease on immunosuppressant medication s, and chronic Afib s/p ablation and PPM (on Xarelto ), who was admitted recently with heart failure symptoms. Patient underwent elective cardiac cath that s howed severe multivessel coronary artery disease not suitable for percutaneous intervention. 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 She went for surgical revascularization today and preop JORDEN revealed severe mitral regurgitation. After discussing new findings with family, patient underwent MVR (31 M agna valve), CABG x 1 (ROBERTS-LAD), ILAA and pericardectomy on 12/19/2021. Has EF of 45%. Crystalloid 1 L, urine output 700, Cell Saver 700. She is a-paced at [facility]. Surgery went well and patient was transferred to CVICU pos top in a stable surgical condition. She is currently intubated on 2 mics of epine phrine, 2 mics of Levophed and insulin drip. CI 3.0, SvO2 in 60%s, CVP 15 and PAP in 60s. Comments: Interval history- Patient still requiring a lot of oxygenation sup port, BiPAP and Teleflex. Has underlying RONA is on CPAP at home 13-18 Auto Pap as per the family. Bowel movement today Patient diuresed well is -1.8 L yesterday. Objective General VS/I O Last Documented: Result Date Time Pulse Ox 98 12/24 1415 FiO2 50 12/24 1415 Pulse 92 12/24 1415 O2 Flow Rate 50 12/24 1200 Resp 22 12/24 1200 B/P 144/67 12/24 0709 B/P Mean 97 12/24 0709 Temp 36.8 12/24 0709 O2 Delivery High flow nasal cannula 12/24 1999 24 hour I O ending at 0700: 12/24 0700 12/23 1900 Intake Total 1270.00 1284.00 Output Total 2425 1950 Balance -1155.00 -666.00 Intake, IV 1020.00 188.00 Intake, Lipid 50 Intake, Oral 250 720 Intake, 326 TPN/PPN Number 1 Bowel Movements Output, Urine 2425 1950 Patient 120.7 kg Weight Weight Standing scale Measurement Method PATIENT WEIGHT: Weight (lb): 266 Weight (oz): 1.57 Weight (kg): 120.700 Medications: Active Meds + DC'd Last 24 Hrs Pantoprazole (PROTONIX) 40 MG DAILY PO Amino Acids/Electrolytes/Dextrose (TPN ADULT- CE NTRAL 2000ML) 1,080 ML 2200 IV Bisacodyl (DULCOLAX) 10 MG DAILY PRN PRN RECTAL Acetazolamide (DIAMOX) 250 MG ONCE ONE IV (DC) Sterile Water (WATER FOR INJECTION) 5 ML ASDIR P RN IV Lactulose (LACTULOSE) 20 GM DAILY PRN PRN PO Magnesium Hydroxide (MILK OF MAGNESIA) 30 ML PETER LY PRN PRN PO Aspirin (ASPIRIN) 81 MG DAILY PO Clopidogrel Bisulfate (Plavix) 75 MG DAILY PO Cyanocobalamin (Vitamin B-12 500 mcg tab) 500 MC G DAILY PO Ferrous Sulfate (FERROUS SULFATE) 300 MG DAILY P O (DC) Ferrous Sulfate (FERROUS SULFATE) 325 MG DAILY P O Metolazone (metOLazone) 5 MG DAILY PO Polyethylene Glycol (MIRALAX) 17 GM DAILY PO Potassium Chloride (POTASSIUM CHLORIDE 20MEQ TAB .ER) 20 MEQ ONCE ONE PO (DC) Lansoprazole (PREVACID) 30 MG DAILY@0600 PO (DC) Potassium Chloride (POTASSIUM CHLORIDE 20MEQ TAB .ER) 40 MEQ ONCE ONE PO (DC) Amino Acids/Electrolytes/Dextrose (TPN ADULT- CE NTRAL 1000ML) 960 ML 2200 IV Fat Emulsion (FAT EMULSION 20% (INTRALIPID)) 250 ML 2200 IV Atorvastatin Calcium (LIPITOR) 40 MG 2100 PO Docusate Sodium (DOCUSATE SODIUM) 100 MG BID PO Metoprolol Tartrate (LOPRESSOR) 12.5 MG Q12HR PO Senna (SENOKOT) 17.6 MG BEDTIME PO Acetazolamide (DIAMOX) 250 MG ONCE ONE IV (DC) Sterile Water (WATER FOR INJECTION) 5 ML ONCE ON E IV (DC) Amiodarone HCl (CORDARONE) 200 MG TID PO Acetaminophen (TYLENOL) 650 MG Q4H PRN PRN PO Tramadol HCl (ULTRAM) 25 MG Q4H PRN PRN PO Tramadol HCl (ULTRAM) 50 MG Q4H PRN PRN PO Insulin Human Regular (HumuLIN R) 100 UNIT ASDIR IV (CKD) Sodium Chloride (SODIUM CHLORIDE 0.9%) 99 ML Gabapentin (NEURONTIN) 200 MG BID 9A 5P FEED-TUB E (DC) Furosemide (LASIX 40 mg/4 mL INJECTION) 60 MG Q8 H IV (CKD) Fat Emulsion (FAT EMULSION 20% (INTRALIPID)) 100 ML 2200 IV (DC) Amino Acids/Electrolytes/Dextrose (TPN ADULT- CE NTRAL 1000ML) 840 ML 2200 IV (DC) Acetylcysteine (MUCOMYST FOR RT) 200 MG RTQ6H NE B Albuterol/Ipratropium (DUONEB) 3 ML RTQ6H NEB Bisacodyl (DULCOLAX) 10 MG ONCE PRN RECTAL Dextrose/Water (Dextrose 10% 1,000 mL) 1,000 ML ASDIR PRN IV Miscellaneous Information (TPN (Central) PHARMAC Y TO DOSE) 1 EACH ASDIR IV Dopamine HCl/Dextrose (DOPamine 400MG/D5W 250ML) 250 ML ASDIR IV Milrinone Lactate/Dextrose (MILRINONE 20MG/D5W 1 00ML) 100 ML ASDIR IV ( CKD) Vasopressin (VASOSTRICT 20 Unit/NS 100ML) 100 ML ASDIR IV (CKD) Mupirocin (BACTROBAN 2% 22 GM OINTMENT) 1 APPLIC BID NASAL (DC) Acetaminophen (TYLENOL) 650 MG Q4H PRN PRN RECTA L Calcium Chloride (CALCIUM CHLORIDE) 1 GM ASDIR P RN IV Dextrose/Water (DEXTROSE 10% IN WATER) 125 ML DIR PRN IV (CKD) Dextrose/Water (DEXTROSE 10% IN WATER) 250 ML DIR PRN IV (CKD) Epinephrine (ADRENALIN CHLORIDE) 5 MG ASDIR IV Dextrose/Water (DEXTROSE 5% WATER) 245 ML Glucagon (GLUCAGON) 1 MG ASDIR PRN IM Magnesium Sulfate (MAGNESIUM SULFATE 4GM/SWFI 10 0ML) 100 ML ASDIR PRN IV Magnesium Sulfate (MAGNESIUM SULFATE 2GM/SWFI 50 ML) 50 ML ASDIR PRN IV Magnesium Sulfate/Dextrose (MAGNESIUM SULFATE 1G M/D5W 100ML) 100 ML ASDIR PRN IV Nitroglycerin/Dextrose (NITROGLYCERIN 50,000MCG/ D5W 250ML) 250 ML ASDIR IV Norepinephrine Bitartrate (NOREPINEPHRINE 8 MG/N S 250 ML) 250 ML TITRATE IV Potassium Chloride (KCL 20MEQ/SWFI 100ML) 100 ML ASDIR PRN IV Sodium Bicarbonate (SODIUM BICARBONATE) 50 MEQ A SDIR PRN IV Sodium Chloride (SODIUM CHLORIDE 0.9%) 1,000 ML .Q20H IV (DC) Sodium Chloride (SODIUM CHLORIDE 0.9%) 250 ML Q2 4H IV (DC) Ondansetron HCl (ZOFRAN) 4 MG Q6H PRN PRN IV Vancomycin HCl (VANCOMYCIN HCL) 1,750 MG PREOP O NCALL IV (CKD) Sodium Chloride (NS 0.9%) 500 ML Results Findings/data: Laboratory Tests 12/24 12/24 12/24 12/24 4977 1968 7132 0584 Blood Gas Puncture Site Art Line Art Line Art Line R Radi al O2 Saturation (90 - 100 %) 93.5 96.0 95.7 88.7 L ABG pH (7.35 - 7.45) 7.346 L 7.348 L 7.376 7.36 3 ABG pCO2 (35.0 - 45 mmHg) 63.5 *H 69.3 *H 65.5 *H 64.5 *H ABG pO2 (80 - 100.0 mmHg) 74.6 L 91.0 84.5 60.3 L ABG PO2/FiO2 Ratio (mm/Hg) 149.20 151.66 120.71 75.37 ABG HCO3 (22.0 - 26.0 MMOL/L) 34.8 *H 37.9 *H 38.5 *H 36.8 *H ABG Total CO2 36.8 40.0 40.5 38.7 ABG Base Excess (-4.0 - 4.0 MMOL/L) 9.1 H 12.3 H 13.2 H 11.4 H ABG Hematocrit (33.0 - 45.0 %) 24 L 26 L 26 L 2 4 L ABG Hemoglobin (11.0 - 15.0 G/DL) 8.1 L 8.7 L 8 .9 L 8.3 L Martin Test N/A N/A Positive Sodium (134 - 147 MEQ/L) 145 149 H 149 H 146 Potassium (3.4 - 5.0 MEQ/L) 3.7 3.1 L 3.2 L 3.1 L Chloride (100 - 108 MEQ/L) 100 102 102 102 Ionized Calcium (1.12 - 1.32 MMOL/L) 1.34 H 1.3 9 H 1.38 H 1.34 H Lactic Acid (0.9 - 1.7 mmol/l) 1.2 0.7 L 0.7 L 0.8 L Temperature (F) 98.2 99 98.1 98.6 O2 Delivery Device BiPAP BiPAP BiPAP HFNC FiO2 (%) 50 60 70 80 Tidal Volume (ml) 18 14 PEEP (cmH2O) 10 8 8 Pressure Support (cmH2O) 14 12/23 Blood Gas Puncture Site Central Line Central Line ABG Hematocrit (33.0 - 45.0 %) 26 L 26 L ABG Hemoglobin (11.0 - 15.0 G/DL) 8.8 L 8.8 L Martin Test N/A VBG pH (7.33 - 7.45) 7.346 7.308 L VBG pCO2 (43 - 47 mmHg) 70.7 *H 75.8 *H VBG pO2 (10 - 50 mmHG) 39.7 37.3 VBG HCO3 (22 - 27 MMOL/L) 38.6 H 38.1 H POC VBG Total CO2 40.8 40.5 VBG O2 Saturation (60 - 80 %) 68.8 63.8 VBG Base Excess (-4.0 - 4.0 MMOL/L) 13.0 H 11.8 H VBG Temperature (F) 98.6 97.9 Sodium (134 - 147 MEQ/L) 147 147 Potassium (3.4 - 5.0 MEQ/L) 3.2 L 3.5 Chloride (100 - 108 MEQ/L) 101 102 Ionized Calcium (1.12 - 1.32 MMOL/L) 1.38 H 1.4 2 H Lactic Acid (0.9 - 1.7 mmol/l) 0.8 L 0.7 L O2 Delivery Device HFNC HFNC FiO2 (%) 70 70 Tidal Volume (ml) 60 Laboratory Tests 12/24 12/24 12/24 12/24 12/24 1424 1415 1415 1139 0913 Chemistry Sodium (134 - 147 mEq/L) 145 Potassium (3.4 - 5.0 mEq/L) 3.8 Chloride (100 - 108 mEq/L) 102 Carbon Dioxide (21 - 33 mEq/l) 37 H Anion Gap (0 - 20) 10 BUN (7 - 18 mg/dL) 64 H Creatinine (0.6 - 1.3 mg/dL) 1.1 POC Creatinine (0.6 - 1.0 mg/dL) 1.1 H 1.0 Glomerular Filtr Rate (70 - 80) 48.0 L Glucose (70 - 110 mg/dL) 246 H POC Glucose (70 - 110 MG/DL) 233 H 143 H POC Glucose (mg/dL) (70 - 110 MG/DL) 237 H 185 H Calcium (8.0 - 10.5 mg/dL) 10.4 Magnesium (1.80 - 2.40 mg/dL) 2.40 12/24 12/24 12/24 12/24 12/23 0913 0653 0535 0320 2409 Chemistry Sodium (134 - 147 mEq/L) 148 H Potassium (3.4 - 5.0 mEq/L) 3.2 L Chloride (100 - 108 mEq/L) 103 Carbon Dioxide (21 - 33 mEq/l) 39 H Anion Gap (0 - 20) 9 BUN (7 - 18 mg/dL) 60 H Creatinine (0.6 - 1.3 mg/dL) 1.0 POC Creatinine (0.6 - 1.0 mg/dL) 1.2 H 1.0 Glomerular Filtr Rate (70 - 80) 53.6 L Glucose (70 - 110 mg/dL) 154 H POC Glucose (70 - 110 MG/DL) 142 H 162 H POC Glucose (mg/dL) (70 - 110 MG/DL) 157 H 170 H Calcium (8.0 - 10.5 mg/dL) 10.8 H Magnesium (1.80 - 2.40 mg/dL) 2.31 12/23 12/23 12/23 2123 1812 1810 Chemistry POC Creatinine (0.6 - 1.0 mg/dL) 1.2 H 1.3 H POC Glucose (70 - 110 MG/DL) 163 H POC Glucose (mg/dL) (70 - 110 MG/DL) 176 H 186 H Laboratory Tests 12/24 0320 Hematology WBC (4.5 - 11.0 x10 3/uL) 6.3 RBC (3.54 - 5.02 x10 6/uL) 2.12 L Hgb (11.0 - 15.0 g/dL) 7.8 L Hct (33.0 - 45.0 %) 23.7 L MCV (81.0 - 99.0 fL) 111.8 H MCH (27.0 - 33.0 pg) 36.8 H MCHC (33.0 - 37.0 g/dL) 32.9 L RDW (11.5 - 14.5 %) 15.7 H Plt Count (150 - 400 x10 3/uL) 121 L MPV (7.0 - 9.0 fL) 11.1 H Neut % (Auto) (56.0 - 77.0 %) 82.8 H Lymph % (Auto) (14.0 - 32.0 %) 2.7 L Barron % (Auto) (4.8 - 9.0 %) 11.4 H Eos % (Auto) (0.3 - 3.7 %) 1.0 Baso % (Auto) (0.0 - 2.0 %) 0.2 Neut # (Auto) (2.0 - 7.6 x10 3/uL) 5.21 Lymph # (Auto) (1.0 - 3.8 x10 3/uL) 0.17 L Barron # (Auto) (0.1 - 0.8 x10 3/uL) 0.72 Eos # (Auto) (0.0 - 0.2 x10 3/uL) 0.06 Baso # (Auto) (0.0 - 0.2 x10 3/uL) 0.01 Abs Immat Gran (auto) (0.00 - 0.03 x10 3/uL) 0. 12 H Add Manual Diff NO Immature Gran % (0.0 - 2.0 %) 1.9 Nucleated RBC % (0 - 0 %) 2.7 H Nucleated RBCs # (Man) (0.0 - 0.1 x10 3/uL) 0.1 7 H Laboratory Tests 12/24/21 1415: [Embedded Image Not Available] 12/24/21 0320: [Embedded Image Not Available] Radiology data Recent Impressions: RADIOLOGY - XR CHEST 1 V 12/24 0631 Report Impression - Status: SIGNED Entered: 12/24/2021 0926 IMPRESSION: 1. Stable postoperative chest. 2. Bilateral pulmonary opacities with central sahil ng zone predominance compatible with edema. Inflammation in the differential. Retrocardiac atelectasis versus co nsolidation. 3. Right greater than left pleural effusions. Impression By: Catherine Carlisle M.D. 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 S/P MVR (mitral valve replacement) 2. S/P CABG x 1 3. Postoperative pulmonary dysfunction after ca rdiac surgery 4. Severe mitral regurgitation 5. CAD (coronary artery disease) 6. CKD (chronic kidney disease) 7. Immunosuppressed status 8. RONA on CPAP 9. Chronic a-fib 10. Crohn disease Free text A P: 76-year-old morbidly obese f emale with history of HTN, HL, IDDM, smoking, RONA on CPAP and home O2 as needed, macular degeneration , Crohn's disease on immunosuppressant medication s, and chronic Afib s/p ablation and PPM (on Xarelto ), who was admitted recently with heart failure symptoms. Patient underwent elective cardiac cath that s howed severe multivessel coronary artery disease not suitable for percutaneous intervention. 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 She went for surgical revascularization today and preop JORDEN revealed severe mitral regurgitation. After discussing new findings with family, patient underwent MVR (31 M agna valve), CABG x 1 (ROBERTS-LAD), ILAA and pericardectomy on 12/19/2021. Has EF of 45%. Crystalloid 1 L, urine output 700, Cell Saver 700. She is a-paced at [facility]. Surgery went well and patient was transferred to CVICU pos top in a stable surgical condition. She is currently intubated on 2 mics of epine phrine, 2 mics of Levophed and insulin drip. CI 3.0, SvO2 in 60%s, CVP 15 and PAP in 60s. Remains neuro intact, multim odal pain control, monitor for CO2 narcosis and ICU delirium, avoid opiates Continues on BiPAP for underlying RONA. Does have some hypercapnia. Increase the BiPAP to 18/10. FiO2 down to 50%. Patient re alan on BiPAP today we will try to wean her to Teleflex tomorrow. Patient has not been eating much as she remain o n BiPAP most of the time. We will continue TPN for 1 day today. Can eat as to lerated. Ultrasound of the right side of the ches t does show some effusion but not very bad. Will do ultrasound tomorrow and reassess. Continue aggressive chest PT. Bronchodilators an d Mucomyst Remains hemodynamically stab le blood pressure is good. Continue with amiodarone and beta-delma. Patient is on Lasix 60 IV 3 times daily. Instead of 1 dose of Lasix will give her acetazolamide. Still diuresing well. Continue to monitor the urine output. Also on metolazone 5 mg. Edgardo BMP in the aftern oon. Renal following. Insulin drip for better control of sugars. Anemia. Continue to monitor the hemoglobin. No t ransfusions for now. Not have any chest tubes. 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 * ALL edits or amendments must be made on the Sensopia/computer document * Subjective Comments: on BIPAP Objective General VS/I O: 24 hour I O ending at 0700: 12/24 0700 12/23 1900 Intake Total 1270.00 1284.00 Output Total 2425 1950 Balance -1155.00 -666.00 Intake, IV 1020.00 188.00 Intake, Lipid 50 Intake, Oral 250 720 Intake, 326 TPN/PPN Number 1 Bowel Movements Output, Urine [id number] Patient 120.7 kg Weight Weight Standing scale Measurement Method Vital Signs: Date Time Temp Pulse Resp B/P B/P Pulse O2 O2 F low FiO2 Mean Ox Delivery Rate 12/24 08 73 100 70 12/24 0709 36.8 72 28 144/67 97 95 12/24 0601 36.7 69 34 175/74 106 89 12/24 0500 36.8 73 29 163/72 104 91 12/24 0401 37.0 69 25 143/64 92 95 12/24 0300 36.9 69 26 153/68 98 96 12/24 0241 69 95 50 12/24 0201 36.9 69 26 138/65 93 94 12/24 0100 36.8 74 26 157/69 99 93 12/24 0027 79 25 99 50 75 12/24 0000 36.9 71 28 145/65 94 91 12/23 2301 37.0 69 23 147/65 93 96 12/23 2202 37.1 70 36 167/70 100 90 12/24 1999 High flow 60 70 nasal cannula 12/23 1939 36.9 70 34 193/79 113 91 12/23 1908 36.8 70 28 191/82 118 94 12/23 1907 71 99 50 12/23 1907 99 BiPAP 50 12/23 1901 36.8 70 24 194/82 118 93 12/23 1807 36.6 72 25 147/73 104 93 12/23 1700 70 28 166/72 104 91 12/23 1600 75 32 168/76 109 92 PATIENT WEIGHT: Weight (lb): 266 Weight (oz): 1.57 Weight (kg): 120.700 Medications: Active Meds + DC'd Last 24 Hrs Pantoprazole (PROTONIX) 40 MG DAILY PO Amino Acids/Electrolytes/Dextrose (TPN ADULT- CE NTRAL 2000ML) 1,080 ML 2200 IV Lactulose (LACTULOSE) 20 GM DAILY PRN PRN PO Magnesium Hydroxide (MILK OF MAGNESIA) 30 ML PETER LY PRN PRN PO Aspirin (ASPIRIN) 81 MG DAILY PO Clopidogrel Bisulfate (Plavix) 75 MG DAILY PO Cyanocobalamin (Vitamin B-12 500 mcg tab) 500 MC G DAILY PO Ferrous Sulfate (FERROUS SULFATE) 300 MG DAILY P O (DC) Ferrous Sulfate (FERROUS SULFATE) 325 MG DAILY P O Metolazone (metOLazone) 5 MG DAILY PO Polyethylene Glycol (MIRALAX) 17 GM DAILY PO Potassium Chloride (POTASSIUM CHLORIDE 20MEQ TAB .ER) 20 MEQ ONCE ONE PO (DC) Lansoprazole (PREVACID) 30 MG DAILY@0600 PO (DC) Potassium Chloride (POTASSIUM CHLORIDE 20MEQ TAB .ER) 40 MEQ ONCE ONE PO (DC) Amino Acids/Electrolytes/Dextrose (TPN ADULT- CE NTRAL 1000ML) 960 ML 2200 IV Fat Emulsion (FAT EMULSION 20% (INTRALIPID)) 250 ML 2200 IV Atorvastatin Calcium (LIPITOR) 40 MG 2100 PO Docusate Sodium (DOCUSATE SODIUM) 100 MG BID PO Metoprolol Tartrate (LOPRESSOR) 12.5 MG Q12HR P O Senna (SENOKOT) 17.6 MG BEDTIME PO Acetazolamide (DIAMOX) 250 MG ONCE ONE IV (DC) Sterile Water (WATER FOR INJECTION) 5 ML ONCE ON E IV (DC) Amiodarone HCl (CORDARONE) 200 MG TID PO Acetaminophen (TYLENOL) 650 MG Q4H PRN PRN PO Tramadol HCl (ULTRAM) 25 MG Q4H PRN PRN PO Tramadol HCl (ULTRAM) 50 MG Q4H PRN PRN PO Insulin Human Regular (HumuLIN R) 100 UNIT ASDIR IV (CKD) Sodium Chloride (SODIUM CHLORIDE 0.9%) 99 ML Gabapentin (NEURONTIN) 200 MG BID 9A 5P FEED-TU BE (DC) Furosemide (LASIX 40 mg/4 mL INJECTION) 60 MG Q8 H IV (CKD) Albumin Human (ALBUMINAR 25%) 25 GM Q8H IV (DC) Fat Emulsion (FAT EMULSION 20% (INTRALIPID)) 100 ML 2200 IV (DC) Amino Acids/Electrolytes/Dextrose (TPN ADULT- CE NTRAL 1000ML) 840 ML 2200 IV (DC) Acetylcysteine (MUCOMYST FOR RT) 200 MG RTQ6H NE B Albuterol/Ipratropium (DUONEB) 3 ML RTQ6H NEB Bisacodyl (DULCOLAX) 10 MG ONCE PRN RECTAL Dextrose/Water (Dextrose 10% 1,000 mL) 1,000 ML ASDIR PRN IV Miscellaneous Information (TPN (Central) PHARMAC Y TO DOSE) 1 EACH ASDIR IV Dopamine HCl/Dextrose (DOPamine 400MG/D5W 250ML) 250 ML ASDIR IV Milrinone Lactate/Dextrose (MILRINONE 20MG/D5W 1 00ML) 100 ML ASDIR IV ( CKD) Vasopressin (VASOSTRICT 20 Unit/NS 100ML) 100 ML ASDIR IV (CKD) Mupirocin (BACTROBAN 2% 22 GM OINTMENT) 1 APPLIC BID NASAL (DC) Acetaminophen (TYLENOL) 650 MG Q4H PRN PRN RECTA L Calcium Chloride (CALCIUM CHLORIDE) 1 GM ASDIR P RN IV Dextrose/Water (DEXTROSE 10% IN WATER) 125 ML DIR PRN IV (CKD) Dextrose/Water (DEXTROSE 10% IN WATER) 250 ML DIR PRN IV (CKD) Epinephrine (ADRENALIN CHLORIDE) 5 MG ASDIR IV Dextrose/Water (DEXTROSE 5% WATER) 245 ML Glucagon (GLUCAGON) 1 MG ASDIR PRN IM Magnesium Sulfate (MAGNESIUM SULFATE 4GM/SWFI 10 0ML) 100 ML ASDIR PRN IV Magnesium Sulfate (MAGNESIUM SULFATE 2GM/SWFI 50 ML) 50 ML ASDIR PRN IV Magnesium Sulfate/Dextrose (MAGNESIUM SULFATE 1G M/D5W 100ML) 100 ML ASDIR PRN IV Nitroglycerin/Dextrose (NITROGLYCERIN 50,000MCG/ D5W 250ML) 250 ML ASDIR IV Norepinephrine Bitartrate (NOREPINEPHRINE 8 MG/N S 250 ML) 250 ML TITRATE IV Potassium Chloride (KCL 20MEQ/SWFI 100ML) 100 ML ASDIR PRN IV Sodium Bicarbonate (SODIUM BICARBONATE) 50 MEQ A SDIR PRN IV Sodium Chloride (SODIUM CHLORIDE 0.9%) 1,000 ML .Q20H IV (DC) Sodium Chloride (SODIUM CHLORIDE 0.9%) 250 ML Q2 4H IV (DC) Ondansetron HCl (ZOFRAN) 4 MG Q6H PRN PRN IV Vancomycin HCl (VANCOMYCIN HCL) 1,750 MG PREOP O NCALL IV (CKD) Sodium Chloride (NS 0.9%) 500 ML Status post: CABG, MVR, and ILAA Physical Exam General appearance: obese, alert, awake ENT: moist mucosal membranes Neck: no JVD Cardiovascular: CV assessment: regular rate and rhythm Respiratory: on oxygen, rhonchi Abdomen: obese Genitourinary: no flank pain, no urinary cathete r Upper extremity: UE assessment: normal temperature, no edema Lower extremity: LE assessment: edema 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, 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 Skin: dry, intact Results Findings/Data: Laboratory Tests 12/24 12/24 12/24 12/24 9559 2491 3560 0541 Blood Gas Puncture Site Art Line Art Line Art Line R Radi al O2 Saturation (90 - 100 %) 93.5 96.0 95.7 88.7 L ABG pH (7.35 - 7.45) 7.346 L 7.348 L 7.376 7.36 3 ABG pCO2 (35.0 - 45 mmHg) 63.5 *H 69.3 *H 65.5 *H 64.5 *H ABG pO2 (80 - 100.0 mmHg) 74.6 L 91.0 84.5 60.3 L ABG PO2/FiO2 Ratio (mm/Hg) 149.20 151.66 120.71 75.37 ABG HCO3 (22.0 - 26.0 MMOL/L) 34.8 *H 37.9 *H 38.5 *H 36.8 *H ABG Total CO2 36.8 40.0 40.5 38.7 ABG Base Excess (-4.0 - 4.0 MMOL/L) 9.1 H 12.3 H 13.2 H 11.4 H ABG Hematocrit (33.0 - 45.0 %) 24 L 26 L 26 L 2 4 L ABG Hemoglobin (11.0 - 15.0 G/DL) 8.1 L 8.7 L 8 .9 L 8.3 L Martin Test N/A N/A Positive Sodium (134 - 147 MEQ/L) 145 149 H 149 H 146 Potassium (3.4 - 5.0 MEQ/L) 3.7 3.1 L 3.2 L 3. 1 L Chloride (100 - 108 MEQ/L) 100 102 102 102 Ionized Calcium (1.12 - 1.32 MMOL/L) 1.34 H 1.3 9 H 1.38 H 1.34 H Lactic Acid (0.9 - 1.7 mmol/l) 1.2 0.7 L 0.7 L 0.8 L Temperature (F) 98.2 99 98.1 98.6 O2 Delivery Device BiPAP BiPAP BiPAP HFNC FiO2 (%) 50 60 70 80 Tidal Volume (ml) 18 14 PEEP (cmH2O) 10 8 8 Pressure Support (cmH2O) 14 12/23 Blood Gas Puncture Site Central Line Central Line ABG Hematocrit (33.0 - 45.0 %) 26 L 26 L ABG Hemoglobin (11.0 - 15.0 G/DL) 8.8 L 8.8 L Martin Test N/A VBG pH (7.33 - 7.45) 7.346 7.308 L VBG pCO2 (43 - 47 mmHg) 70.7 *H 75.8 *H VBG pO2 (10 - 50 mmHG) 39.7 37.3 VBG HCO3 (22 - 27 MMOL/L) 38.6 H 38.1 H POC VBG Total CO2 40.8 40.5 VBG O2 Saturation (60 - 80 %) 68.8 63.8 VBG Base Excess (-4.0 - 4.0 MMOL/L) 13.0 H 11.8 H VBG Temperature (F) 98.6 97.9 Sodium (134 - 147 MEQ/L) 147 147 Potassium (3.4 - 5.0 MEQ/L) 3.2 L 3.5 Chloride (100 - 108 MEQ/L) 101 102 Ionized Calcium (1.12 - 1.32 MMOL/L) 1.38 H 1.4 2 H Lactic Acid (0.9 - 1.7 mmol/l) 0.8 L 0.7 L O2 Delivery Device HFNC HFNC FiO2 (%) 70 70 Tidal Volume (ml) 60 Laboratory Tests 12/24 12/24 12/24 12/24 12/24 1424 1415 1415 1139 0913 Chemistry Sodium (134 - 147 mEq/L) 145 Potassium (3.4 - 5.0 mEq/L) 3.8 Chloride (100 - 108 mEq/L) 102 Carbon Dioxide (21 - 33 mEq/l) 37 H Anion Gap (0 - 20) 10 BUN (7 - 18 mg/dL) 64 H Creatinine (0.6 - 1.3 mg/dL) 1.1 POC Creatinine (0.6 - 1.0 mg/dL) 1.1 H 1.0 Glomerular Filtr Rate (70 - 80) 48.0 L Glucose (70 - 110 mg/dL) 246 H POC Glucose (70 - 110 MG/DL) 233 H 143 H POC Glucose (mg/dL) (70 - 110 MG/DL) 237 H 185 H Calcium (8.0 - 10.5 mg/dL) 10.4 Magnesium (1.80 - 2.40 mg/dL) 2.40 12/24 12/24 12/24 12/24 12/23 0913 0653 0535 6940 3606 Chemistry Sodium (134 - 147 mEq/L) 148 H Potassium (3.4 - 5.0 mEq/L) 3.2 L Chloride (100 - 108 mEq/L) 103 Carbon Dioxide (21 - 33 mEq/l) 39 H Anion Gap (0 - 20) 9 BUN (7 - 18 mg/dL) 60 H Creatinine (0.6 - 1.3 mg/dL) 1.0 POC Creatinine (0.6 - 1.0 mg/dL) 1.2 H 1.0 Glomerular Filtr Rate (70 - 80) 53.6 L Glucose (70 - 110 mg/dL) 154 H POC Glucose (70 - 110 MG/DL) 142 H 162 H POC Glucose (mg/dL) (70 - 110 MG/DL) 157 H 170 H Calcium (8.0 - 10.5 mg/dL) 10.8 H Magnesium (1.80 - 2.40 mg/dL) 2.31 12/23 12/23 12/23 12/23 12/23 2123 1812 1810 1643 1506 Chemistry POC Creatinine (0.6 - 1.0 mg/dL) 1.2 H 1.3 H POC Glucose (70 - 110 MG/DL) 163 H 150 H 209 H POC Glucose (mg/dL) (70 - 110 MG/DL) 176 H 186 H Laboratory Tests 12/24 0320 Hematology WBC (4.5 - 11.0 x10 3/uL) 6.3 RBC (3.54 - 5.02 x10 6/uL) 2.12 L Hgb (11.0 - 15.0 g/dL) 7.8 L Hct (33.0 - 45.0 %) 23.7 L MCV (81.0 - 99.0 fL) 111.8 H MCH (27.0 - 33.0 pg) 36.8 H MCHC (33.0 - 37.0 g/dL) 32.9 L RDW (11.5 - 14.5 %) 15.7 H Plt Count (150 - 400 x10 3/uL) 121 L MPV (7.0 - 9.0 fL) 11.1 H Neut % (Auto) (56.0 - 77.0 %) 82.8 H Lymph % (Auto) (14.0 - 32.0 %) 2.7 L Barron % (Auto) (4.8 - 9.0 %) 11.4 H Eos % (Auto) (0.3 - 3.7 %) 1.0 Baso % (Auto) (0.0 - 2.0 %) 0.2 Neut # (Auto) (2.0 - 7.6 x10 3/uL) 5.21 Lymph # (Auto) (1.0 - 3.8 x10 3/uL) 0.17 L Barron # (Auto) (0.1 - 0.8 x10 3/uL) 0.72 Eos # (Auto) (0.0 - 0.2 x10 3/uL) 0.06 Baso # (Auto) (0.0 - 0.2 x10 3/uL) 0.01 Abs Immat Gran (auto) (0.00 - 0.03 x10 3/uL) 0. 12 H Add Manual Diff NO Immature Gran % (0.0 - 2.0 %) 1.9 Nucleated RBC % (0 - 0 %) 2.7 H Nucleated RBCs # (Man) (0.0 - 0.1 x10 3/uL) 0.1 7 H Laboratory Tests 12/24 12/24 1415 0320 Chemistry Magnesium (1.80 - 2.40 mg/dL) 2.40 2.31 Radiology data: Recent Impressions: RADIOLOGY - XR CHEST 1 V 12/24 0631 Report Impression - Status: SIGNED Entered: 12/24/2021 8278 IMPRESSION: 1. Stable postoperative chest. 2. Bilateral pulmonary opacities with central sahil ng zone predominance compatible with edema. Inflammation in the differential. Retrocardiac atelectasis versus co nsolidation. 3. Right greater than left pleural effusions. Impression By: Catherine Carlisle M.D. Results: labs reviewed, vital signs reviewed, [facility] personally rev'd Telemetry Interpretation: paced Diagnosis, Assessment Plan Plan discussed with: daughter, nurse Free Text DxA P Notes Free Text DxA P Notes: Ms Glies is a 76 y/o Femal w / PMHx: CAD, HLD, T2DM, RONA (CPAP at home), smoker, Crohn's disease, AF s/p ablation (on Xarelto), s /p PPM and lymphedema. Dr. Fortune is consulted for CAD s/p CABG, MVR. - CAD s/p CABG, MVR, and ILAA. post-op per CTS and critical care On Plavix, aspirin, beta-delma, statin volume management per Nephrology - Chr AF s/p PPM/ablation. Rate controlled, pace d rhythm. had ILAA during bypass - HTN. BP stable - HLD. On statins. - Crohn's disease. Per IM. -MARCELLO - resolving per Nephrology -Resp insufficiency on BIPAP per critical care -volume overload negative fluid balance diuretic management per nephrology continue supportive care at 1537 Electronically Signed by Aruna Fortune MD on at 2254 RPT #:[id number] END OF REPORT 2021-12-24 14:47:00-00:00 [facility] Pharm[facility] Prog.Note-Nutrition REPORT#:[id number] REPORT STATUS: Signed DATE:12/24/21 TIME: 1447 PATIENT: SAÚL GILES UNIT #: [id number] ROOM/BED: [place] [address] : 41 AGE: 76 SEX: F ATTEND: Leah More MD ADM AUTHOR: Vanessa Morales [facility] * ALL edits or amendments must be made on the [employer]/computer document * Nutrition Support Nutrition Support Dietitian nutrition assessment The data set between the solid lines has been im ported from the dietitian's assessment. BMI Calculated: 45.7 Nutrition related diagnosis: Morbid obesity Nutrition diagnosis details: BMI 40 or more Nutrition problem: Increased nutrient needs Nutrition etiology: Chronic disease Nutrition signs and symptoms: S/P CABG Nutrition prescription: 1. RECOMMEND 1800 ADA DI ABETIC DIET. 2. PROVIDE GLUCERNA TID WITH MEALS. 3. CONTINUE CURRENT TPN ORDER TO SUPPLEMENT MEALS UNTIL PO INTAKE >50% AT MEALS. 4. MONITOR PO, WT, LABS , BM. Dietitian name: Serenity Garner, DIET Assessment completed: 12/22/21 Medication therapy: adult PN Indication for treatment: Alberto using an "X" for all appropriate indicatio ns: Evidence of PCM and enteral nutrition (EN) not feasible Malnourished surgical patient able to have PN 5 -7 days preoperatively and EN not feasible PN for anticipated need of >5-7 days and EN not feasible X Supplemental PN if unable to meet EN goal with in 7-10 days Other: Current therapy: Adult Parenteral Nutrition Custom Formulation fo r [employer] plus Lipids Day of therapy: Day 5 Weight: Actual weight (kg): 120.7 Vital signs/I O: 24 hour I O ending at 0700: 12/24 0700 12/23 1900 Intake Total 1270.00 1284.00 Output Total 2425 1950 Balance -1155.00 -666.00 Intake, IV 1020.00 188.00 Intake, Lipid 50 Intake, Oral 250 720 Intake, 326 TPN/PPN Number 1 Bowel Movements Output, Urine 2425 1950 Patient 120.7 kg Weight Weight Standing scale Measurement Method Vital Signs: Date Time Temp Pulse Resp B/P B/P Pulse O2 O2 F low FiO2 Mean Ox Delivery Rate 12/24 0827 73 100 70 12/24 0709 36.8 72 28 144/67 97 95 12/24 0601 36.7 69 34 175/74 106 89 12/24 0500 36.8 73 29 163/72 104 91 12/24 0401 37.0 69 25 143/64 92 95 12/24 0300 36.9 69 26 153/68 98 96 12/24 0241 69 95 50 12/24 0201 36.9 69 26 138/65 93 94 12/24 0100 36.8 74 26 157/69 99 93 12/24 0027 79 25 99 50 75 12/24 0000 36.9 71 28 145/65 94 91 12/23 2301 37.0 69 23 147/65 93 96 12/23 2202 37.1 70 36 167/70 100 90 12/23 2000 High flow 60 70 nasal cannula 12/23 1939 36.9 70 34 193/79 113 91 12/24 1907 36.8 70 28 191/82 118 94 12/23 1906 71 99 50 12/23 1906 99 BiPAP 50 12/23 1900 36.8 70 24 194/82 118 93 12/23 1807 36.6 72 25 147/73 104 93 12/23 1700 70 28 166/72 104 91 12/23 1600 75 32 168/76 109 92 12/23 1500 69 32 145/103 117 94 Labs: Laboratory Tests 12/24 12/23 12/23 12/22 12/22 0320 1502 0400 2230 0430 Chemistry Sodium (134 - 147 mEq/L) 148 H 145 144 143 Potassium (3.4 - 5.0 mEq/L) 3.2 L 4.7 3.9 4.0 Chloride (100 - 108 mEq/L) 103 104 107 106 Carbon Dioxide (21 - 33 mEq/l) 39 H 35 H 28 27 BUN (7 - 18 mg/dL) 60 H 58 H 33 H 33 H Creatinine (0.6 - 1.3 mg/dL) 1.0 1.1 1.1 1.3 Glucose (70 - 110 mg/dL) 154 H 235 H 222 H 219 H Laboratory Tests Test Result Date Time Chemistry Calcium (8.0 - 10.5 mg/dL) 10.8 H 12/24 0320 Phosphorus (2.5 - 4.9 MG/DL) 3.4 12/22 429 Magnesium (1.80 - 2.40 mg/dL) 2.31 12/24 032 Albumin (3.4 - 5.0 g/dL) 4.30 12/22 043 Triglycerides: Test Result Date Time Chemistry Triglycerides (40 - 150 mg/dL) 67 12/18 0310 Laboratory Tests 12/24 12/24 12/24 12/24 12/24 1424 1415 1139 0913 0913 Chemistry POC Glucose (70 - 110 MG/DL) 233 H 143 H POC Glucose (mg/dL) (70 - 110 MG/DL) 237 H 185 H 157 H 12/24 12/24 12/23 12/23 12/23 0653 0535 2236 2123 1812 Chemistry POC Glucose (70 - 110 MG/DL) 142 H 162 H 163 H POC Glucose (mg/dL) (70 - 110 MG/DL) 170 H 176 H 12/23 12/23 12/23 1810 1643 1506 Chemistry POC Glucose (70 - 110 MG/DL) 150 H 209 H POC Glucose (mg/dL) (70 - 110 MG/DL) 186 H Diet: regular Calorie needs: 9640-3488 kcal/day (30-35 kcal/kg/day) per dieti cande assessment on 12/22 Protein needs: 90-120 g/day per assembler gold frame assessment on 12/22 IV access: Right IJ CVC Treatment plan: consult, change regimen Regimen: CAPS Custom Formulation Rate: 45 mL/hr (1080 mL/day) Total kcal: 1725 kcal/day ( 96% of daily kcal go al) Amino acids 115 g/day (100% of daily protein goa l) Dextrose 225 g/day Lipids 50 g/day Sodium chloride mEq/day Sodium acetate mEq/day Magnesium sulfate mEq/day Calcium gluconate mEq/day Potassium chloride 40 mEq/day Potassium acetate mEq/day Potassium phosphate mmol/day Sodium phosphate -- mmol/day MVI 10 mL daily Trace elements 1 mL daily Insulin, regular -- units Orders outside of TPN: Furosemide 60 mg IV q8h Insulin drip Metolazone 5 mg PO daily Ondansetron 4 mg IV q6h PRN (last administered at 2144) Pantoprazole 40 mg PO daily 12/23: Acetazolamide 250 mg IV x1 12/23: Potassium chloride 20 mEq IV x1 12/24: Potassium chloride 20 mEq IV x2 12/24: Potassium chloride 20 mEq PO x1 12/24: Potassium chloride 40 mEq PO x1 Rationale: HPI: This 76-year-old female , from [facility], with past medical history of macular degeneration, obe sity, obstructive sleep apnea (CPAP at home), former smoker, hypertension, hyperl ipidemia, diabetes, Crohn's disease, chronic atrial fibrillation (status post 3 ablations in the past and on Xarelto), and pacemaker placement who had a recent admission to the hosp ital with heart failure symptoms. She has been admitted to the hospital for elective heart cath. Coronary angiogram showed severe multivessel cor onary artery disease not suitable for percutaneous intervention. The patient is now status post CABG x1 and MVR on 12/[address] Romero. Due to the pa philip s dependence on BiPAP postoperatively, Dr. Romero would like to initiate TPN to meet this patient s nutritional needs. Pharmacy has been consulted for the dosing and monitoring of TPN. 12/24 Assessment and Plan Patient with a regular diet, but she developed nausea overnight. A KUB showed a nonobstructive gas pattern. An NG tube was inserted, however, the patient self- removed this overnight. Per discussion on rounds, the patient is not eating well due to BiPAP-dependence, and ICC would like to c ontinue TPN for now. Macronutrients: Will increase the rate of TPN to 45 mL/hr to accommodate the increased volume from advancing amino acids and dextrose. Will increase amino acids and dextrose to 115 g/day and 225 g/day, r espectively. Will continue lipids at 50 g/day. This shiva l provide 1725 kcal/day. (100% of daily protein goal and 96% of daily kcal goal). Will advanc e TPN in the coming days as tolerated. Triglycerides 67 on 12/18; monitor at least week ly while on TPN. Electrolytes: Sodium has trended up to 1 48. Will remove sources of sodium from TPN. Potassium low at 3.2. T he patient has required significant supplementation outside of TPN. Will increas e potassium chloride in TPN. Calcium has trended up, and now elevated at 10.8. No calcium in TPN. All other electrolytes are within normal limits. Electrolytes in TPN as outlined harriet holt. Supplement additional electrolytes outside of TPN as indicated. Renal I/O: BUN/SCr 60/1.0 (BUN acutely increased , SCr stable). Urine output with 4375 mL documented over the past 24 hours. Will concentrate TPN as much as possible given recent cardio vascular surgery and need for frequent diuresis. The patient will receive 1080 mL /day of fluids from TPN and 250 mL/day from lipids. Hepatic: Tbili 0.50, AST/ALT /, Alk phos 57, and albumin 4.30 on 12/22; monitor at least weekly while on TPN Glycemic Control: Serum bloo d glucose was 154 mg/dL this morning. [id number] glucose has ranged 142-326 mg/dL over the past 2 4 hours. The patient is currently maintained on an insulin drip. Will no t add insulin to TPN at this time. at [address] [facility] #:[id number] END OF REPORT 2021-12-24 11:34:00-00:[address] [facility] ([facility]) Hospitalist Progress Note REPORT#:[id number] REPORT STATUS: Signed DATE:12/24/21 TIME: 1134 PATIENT: SAÚL GILES UNIT #: [id number] ROOM/BED: [place] [address] : 43 AGE: 76 SEX: F ATTEND: Leah More MD ADM AUTHOR: Meryl Rosa MD * ALL edits or amendments must be made on the [employer] document * Subjective Chief complaint: she sit on the chair . she start ambulate with P T in the room . acute respiratory failure --post CABG HPI: 76 years old female with PMH of macular degeneration, obesity, obstructive sleep apnea (CPAP at home), former smoker, hypertensio n, hyperlipidemia, diabetes, Crohn's disease, chronic atr ial fibrillation status post 3 ablations in the past (on Xarelto), pacemaker plac ement is admitted to the hospital post cardiac cath . she need CABG . she had sob for years . sob go t worse . she was admitted to the hospital in [place] . she had cath 3 we eks ago . she was reffered to here for stents placement . she had cath yesterd ay . it show multiple vessels CAD . she is recommend CABG . she still feel sob . no cp no nausea no vomiting no fever no abdominal pain no dizziness . Review of Systems Constitutional: Reports: fatigue, generalized weakness. Denies: fever, lethargy. Respiratory: Reports: SOB. Denies: wheezing. Cardiovascular: Denies: edema, orthopnea, palpitations. GI: Denies: abdominal pain, nausea, rectal pain. : Denies: flank pain. Neuro: Denies: dizziness, headache. Objective General VS/I O: Vital Signs: Date Time Temp Pulse Resp B/P B/P Pulse O2 O2 F low FiO2 Mean Ox Delivery Rate 12/24 0709 36.8 72 28 144/67 97 95 12/24 0601 36.7 69 34 175/74 106 89 12/24 0500 36.8 73 29 163/72 104 91 12/24 0401 37.0 69 25 143/64 92 95 12/24 0300 36.9 69 26 153/68 98 96 12/24 0241 69 95 50 12/24 0201 36.9 69 26 138/65 93 94 12/24 0100 36.8 74 26 157/69 99 93 12/24 0027 79 25 99 50 75 12/24 0000 36.9 71 28 145/65 94 91 12/23 2301 37.0 69 23 147/65 93 96 12/23 2202 37.1 70 36 167/70 100 90 12/24 1999 High flow 60 70 nasal cannula 12/23 193 36.9 70 34 193/79 113 91 12/23 190 36.8 70 28 191/82 118 94 12/23 1907 71 99 50 12/23 1907 99 BiPAP 50 12/23 190 36.8 70 24 194/82 118 93 12/23 1807 36.6 72 25 147/73 104 93 12/23 1700 70 28 166/72 104 91 12/23 1600 75 32 168/76 109 92 12/23 1500 69 32 145/103 117 94 12/23 1421 72 26 138/63 91 90 12/23 1300 78 28 50 12/23 1300 73 33 138/64 92 83 12/23 1201 36.5 73 27 131/60 86 88 24 hour I O ending at 0700: 12/24 0700 12/23 1900 Intake Total 1270.00 1284.00 Output Total 2425 1950 Balance -1155.00 -666.00 Intake, IV 1020.00 188.00 Intake, Lipid 50 Intake, Oral 250 720 Intake, 326 TPN/PPN Number 1 Bowel Movements Output, Urine 2425 1950 Patient 120.7 kg Weight Weight Standing scale Measurement Method PATIENT WEIGHT: Weight (lb): 266 Weight (oz): 1.57 Weight (kg): 120.700 Medications: Active Meds + DC'd Last 24 Hrs Pantoprazole (PROTONIX) 40 MG DAILY PO Aspirin (ASPIRIN) 81 MG DAILY PO Clopidogrel Bisulfate (Plavix) 75 MG DAILY PO Cyanocobalamin (Vitamin B-12 500 mcg tab) 500 MC G DAILY PO Ferrous Sulfate (FERROUS SULFATE) 300 MG DAILY P O (DC) Ferrous Sulfate (FERROUS SULFATE) 325 MG DAILY P O Metolazone (metOLazone) 5 MG DAILY PO Polyethylene Glycol (MIRALAX) 17 GM DAILY PO Potassium Chloride (POTASSIUM CHLORIDE 20MEQ TAB .ER) 20 MEQ ONCE ONE PO (DC) Lansoprazole (PREVACID) 30 MG DAILY@0600 PO (DC) Potassium Chloride (POTASSIUM CHLORIDE 20MEQ TAB .ER) 40 MEQ ONCE ONE PO (DC) Amino Acids/Electrolytes/Dextrose (TPN ADULT- CE NTRAL 1000ML) 960 ML 2200 IV Fat Emulsion (FAT EMULSION 20% (INTRALIPID)) 250 ML 2200 IV Atorvastatin Calcium (LIPITOR) 40 MG 2100 FEED-T UBE (DC) Atorvastatin Calcium (LIPITOR) 40 MG 2100 PO Docusate Sodium (DOCUSATE SODIUM) 100 MG BID PO Metoprolol Tartrate (LOPRESSOR) 12.5 MG Q12HR PO Senna (SENOKOT) 17.6 MG BEDTIME FEED-TUBE (DC) Senna (SENOKOT) 17.6 MG BEDTIME PO Acetazolamide (DIAMOX) 250 MG ONCE ONE IV (DC) Sterile Water (WATER FOR INJECTION) 5 ML ONCE ON E IV (DC) Amiodarone HCl (CORDARONE) 200 MG TID PO Magnesium Hydroxide (MILK OF MAGNESIA) 30 ML ONC E ONE PO (DC) Acetaminophen (TYLENOL) 650 MG Q4H PRN PRN PO Tramadol HCl (ULTRAM) 25 MG Q4H PRN PRN PO Tramadol HCl (ULTRAM) 50 MG Q4H PRN PRN PO Insulin Human Regular (HumuLIN R) 100 UNIT ASDIR IV (CKD) Sodium Chloride (SODIUM CHLORIDE 0.9%) 99 ML Amiodarone HCl (CORDARONE) 200 MG TID FEED-TUBE (DC) Aspirin (ASPIRIN) 81 MG DAILY FEED-TUBE (DC) Clopidogrel Bisulfate (Plavix) 75 MG DAILY FEED- TUBE (DC) Cyanocobalamin (Vitamin B-12 500 mcg tab) 500 MC G DAILY FEED-TUBE (DC) Docusate Sodium (DOCUSATE SODIUM) 100 MG BID FEE D-TUBE (DC) Ferrous Sulfate (FERROUS SULFATE) 300 MG DAILY F EED-TUBE (DC) Gabapentin (NEURONTIN) 200 MG BID 9A 5P FEED-TUB E (DC) Metolazone (metOLazone) 5 MG DAILY FEED-TUBE (DC ) Metoprolol Tartrate (LOPRESSOR) 12.5 MG Q12HR FE ED-TUBE (DC) Polyethylene Glycol (MIRALAX) 17 GM DAILY FEED-T UBE (DC) Lansoprazole (PREVACID) 30 MG DAILY@0600 FEED-TU BE (DC) Furosemide (LASIX 40 mg/4 mL INJECTION) 60 MG Q8 H IV (CKD) Acetaminophen (TYLENOL) 650 MG Q4H PRN PRN FEED- TUBE (DC) Tramadol HCl (ULTRAM) 25 MG Q4H PRN PRN FEED-TUB E (DC) Tramadol HCl (ULTRAM) 50 MG Q4H PRN PRN FEED-TUB E (DC) Albumin Human (ALBUMINAR 25%) 25 GM Q8H IV (DC) Fat Emulsion (FAT EMULSION 20% (INTRALIPID)) 100 ML 2200 IV (DC) Amino Acids/Electrolytes/Dextrose (TPN ADULT- CE NTRAL 1000ML) 840 ML 2200 IV (DC) Acetylcysteine (MUCOMYST FOR RT) 200 MG RTQ6H N EB Albuterol/Ipratropium (DUONEB) 3 ML RTQ6H NEB Bisacodyl (DULCOLAX) 10 MG ONCE PRN RECTAL Dextrose/Water (Dextrose 10% 1,000 mL) 1,000 ML ASDIR PRN IV (DC) Miscellaneous Information (TPN (Central) PHARMAC Y TO DOSE) 1 EACH ASDIR IV (DC) Dopamine HCl/Dextrose (DOPamine 400MG/D5W 250ML) 250 ML ASDIR IV Milrinone Lactate/Dextrose (MILRINONE 20MG/D5W 1 00ML) 100 ML ASDIR IV ( CKD) Vasopressin (VASOSTRICT 20 Unit/NS 100ML) 100 ML ASDIR IV (CKD) Mupirocin (BACTROBAN 2% 22 GM OINTMENT) 1 APPLIC BID NASAL (DC) Acetaminophen (TYLENOL) 650 MG Q4H PRN PRN RECTA L Calcium Chloride (CALCIUM CHLORIDE) 1 GM ASDIR P RN IV Dextrose/Water (DEXTROSE 10% IN WATER) 125 ML DIR PRN IV (CKD) Dextrose/Water (DEXTROSE 10% IN WATER) 250 ML DIR PRN IV (CKD) Epinephrine (ADRENALIN CHLORIDE) 5 MG ASDIR IV Dextrose/Water (DEXTROSE 5% WATER) 245 ML Glucagon (GLUCAGON) 1 MG ASDIR PRN IM Magnesium Sulfate (MAGNESIUM SULFATE 4GM/SWFI 10 0ML) 100 ML ASDIR PRN IV Magnesium Sulfate (MAGNESIUM SULFATE 2GM/SWFI 50 ML) 50 ML ASDIR PRN IV Magnesium Sulfate/Dextrose (MAGNESIUM SULFATE 1G M/D5W 100ML) 100 ML ASDIR PRN IV Nitroglycerin/Dextrose (NITROGLYCERIN 50,000MCG/ D5W 250ML) 250 ML ASDIR IV Norepinephrine Bitartrate (NOREPINEPHRINE 8 MG/N S 250 ML) 250 ML TITRATE IV Potassium Chloride (KCL 20MEQ/SWFI 100ML) 100 ML ASDIR PRN IV Sodium Bicarbonate (SODIUM BICARBONATE) 50 MEQ A SDIR PRN IV Sodium Chloride (SODIUM CHLORIDE 0.9%) 1,000 ML .Q20H IV (DC) Sodium Chloride (SODIUM CHLORIDE 0.9%) 250 ML Q2 4H IV (DC) Ondansetron HCl (ZOFRAN) 4 MG Q6H PRN PRN IV Vancomycin HCl (VANCOMYCIN HCL) 1,750 MG PREOP O NCALL IV (CKD) Sodium Chloride (NS 0.9%) 500 ML Physical Exam General appearance: alert, awake, oriented Head/Eyes: atraumatic, normal conjunctiva/sclera , normal eyelids/periorb., normocephalic ENT: intubated Neck: full range of motion, non-tender, no JVD Cardiovascular: normal heart sounds, regular rat e rhythm Respiratory: dyspneic, hypercapnia, hypoxia, on oxygen, clear to auscultation Abdomen: non-tender, normal bowel sounds, soft, no distention Extremities: moves all, no calf tenderness, no e ana 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 Skin: dry, intact Results Findings/Data: Laboratory Tests 12/24 12/24 12/23 0913 0576 2125 Blood Gas Puncture Site Art Line R Radial Central Line O2 Saturation (90 - 100 %) 95.7 88.7 L ABG pH (7.35 - 7.45) 7.376 7.363 ABG pCO2 (35.0 - 45 mmHg) 65.5 *H 64.5 *H ABG pO2 (80 - 100.0 mmHg) 84.5 60.3 L ABG PO2/FiO2 Ratio (mm/Hg) 120.71 75.37 ABG HCO3 (22.0 - 26.0 MMOL/L) 38.5 *H 36.8 *H ABG Total CO2 40.5 38.7 ABG Base Excess (-4.0 - 4.0 MMOL/L) 13.2 H 11.4 H ABG Hematocrit (33.0 - 45.0 %) 26 L 24 L 26 L ABG Hemoglobin (11.0 - 15.0 G/DL) 8.9 L 8.3 L 8 .8 L Martin Test N/A Positive VBG pH (7.33 - 7.45) 7.346 VBG pCO2 (43 - 47 mmHg) 70.7 *H VBG pO2 (10 - 50 mmHG) 39.7 VBG HCO3 (22 - 27 MMOL/L) 38.6 H POC VBG Total CO2 40.8 VBG O2 Saturation (60 - 80 %) 68.8 VBG Base Excess (-4.0 - 4.0 MMOL/L) 13.0 H VBG Temperature (F) 98.6 Sodium (134 - 147 MEQ/L) 149 H 146 147 Potassium (3.4 - 5.0 MEQ/L) 3.2 L 3.1 L 3.2 L Chloride (100 - 108 MEQ/L) 102 102 101 Ionized Calcium (1.12 - 1.32 MMOL/L) 1.38 H 1.3 4 H 1.38 H Lactic Acid (0.9 - 1.7 mmol/l) 0.7 L 0.8 L 0.8 L Temperature (F) 98.1 98.6 O2 Delivery Device BiPAP HFNC HFNC FiO2 (%) 70 80 70 Tidal Volume (ml) 14 PEEP (cmH2O) 8 12/23 12/23 1810 1341 Blood Gas Puncture Site Central Line Central Line ABG Hematocrit (33.0 - 45.0 %) 26 L 27 L ABG Hemoglobin (11.0 - 15.0 G/DL) 8.8 L 9.0 L Martin Test N/A VBG pH (7.33 - 7.45) 7.308 L 7.298 L VBG pCO2 (43 - 47 mmHg) 75.8 *H 69.6 *H VBG pO2 (10 - 50 mmHG) 37.3 33.8 VBG HCO3 (22 - 27 MMOL/L) 38.1 H 34.4 H POC VBG Total CO2 40.5 36.6 VBG O2 Saturation (60 - 80 %) 63.8 58.7 L VBG Base Excess (-4.0 - 4.0 MMOL/L) 11.8 H 7.8 H VBG Temperature (F) 97.9 97.3 Sodium (134 - 147 MEQ/L) 147 145 Potassium (3.4 - 5.0 MEQ/L) 3.5 3.6 Chloride (100 - 108 MEQ/L) 102 103 Ionized Calcium (1.12 - 1.32 MMOL/L) 1.42 H 1.4 0 H Lactic Acid (0.9 - 1.7 mmol/l) 0.7 L 1.1 O2 Delivery Device HFNC HFNC FiO2 (%) 70 70 Tidal Volume (ml) 60 60 Laboratory Tests 12/24 12/24 12/24 12/24 12/24 0913 0913 0653 0535 0320 Chemistry Sodium (134 - 147 mEq/L) 148 H Potassium (3.4 - 5.0 mEq/L) 3.2 L Chloride (100 - 108 mEq/L) 103 Carbon Dioxide (21 - 33 mEq/l) 39 H Anion Gap (0 - 20) 9 BUN (7 - 18 mg/dL) 60 H Creatinine (0.6 - 1.3 mg/dL) 1.0 POC Creatinine (0.6 - 1.0 mg/dL) 1.2 H 1.0 Glomerular Filtr Rate (70 - 80) 53.6 L Glucose (70 - 110 mg/dL) 154 H POC Glucose (70 - 110 MG/DL) 143 H 142 H POC Glucose (mg/dL) (70 - 110 MG/DL) 157 H 170 H Calcium (8.0 - 10.5 mg/dL) 10.8 H Magnesium (1.80 - 2.40 mg/dL) 2.31 12/23 12/23 12/23 12/23 12/23 2236 2123 1812 1810 1643 Chemistry POC Creatinine (0.6 - 1.0 mg/dL) 1.2 H 1.3 H POC Glucose (70 - 110 MG/DL) 162 H 163 H 150 H POC Glucose (mg/dL) (70 - 110 MG/DL) 176 H 186 H 12/23 12/23 12/23 12/23 12/23 1506 1502 1341 1323 1215 Chemistry Sodium (134 - 147 mEq/L) 145 Potassium (3.4 - 5.0 mEq/L) 4.7 Chloride (100 - 108 mEq/L) 104 Carbon Dioxide (21 - 33 mEq/l) 35 H Anion Gap (0 - 20) 11 BUN (7 - 18 mg/dL) 58 H Creatinine (0.6 - 1.3 mg/dL) 1.1 POC Creatinine (0.6 - 1.0 mg/dL) 1.3 H Glomerular Filtr Rate (70 - 80) 48.0 L Glucose (70 - 110 mg/dL) 235 H POC Glucose (70 - 110 MG/DL) 209 H 236 H 250 H POC Glucose (mg/dL) (70 - 110 MG/DL) 326 H Calcium (8.0 - 10.5 mg/dL) 10.4 Magnesium (1.80 - 2.40 mg/dL) 2.34 Laboratory Tests 12/24 0320 Hematology WBC (4.5 - 11.0 x10 3/uL) 6.3 RBC (3.54 - 5.02 x10 6/uL) 2.12 L Hgb (11.0 - 15.0 g/dL) 7.8 L Hct (33.0 - 45.0 %) 23.7 L MCV (81.0 - 99.0 fL) 111.8 H MCH (27.0 - 33.0 pg) 36.8 H MCHC (33.0 - 37.0 g/dL) 32.9 L RDW (11.5 - 14.5 %) 15.7 H Plt Count (150 - 400 x10 3/uL) 121 L MPV (7.0 - 9.0 fL) 11.1 H Neut % (Auto) (56.0 - 77.0 %) 82.8 H Lymph % (Auto) (14.0 - 32.0 %) 2.7 L Barron % (Auto) (4.8 - 9.0 %) 11.4 H Eos % (Auto) (0.3 - 3.7 %) 1.0 Baso % (Auto) (0.0 - 2.0 %) 0.2 Neut # (Auto) (2.0 - 7.6 x10 3/uL) 5.21 Lymph # (Auto) (1.0 - 3.8 x10 3/uL) 0.17 L Barron # (Auto) (0.1 - 0.8 x10 3/uL) 0.72 Eos # (Auto) (0.0 - 0.2 x10 3/uL) 0.06 Baso # (Auto) (0.0 - 0.2 x10 3/uL) 0.01 Abs Immat Gran (auto) (0.00 - 0.03 x10 3/uL) 0. 12 H Add Manual Diff NO Immature Gran % (0.0 - 2.0 %) 1.9 Nucleated RBC % (0 - 0 %) 2.7 H Nucleated RBCs # (Man) (0.0 - 0.1 x10 3/uL) 0.1 7 H Treatment Prophylaxis Treatment Prophylaxis Drain(s)/tube(s): Drain(s)/tube(s): chest (x3) Diagnosis, Assessment Plan Consultants: cardiology, cardiovascular surgery Free Text DxA P Notes Free text DxA P notes: 76 years old female with PMH of macular degeneration, obesity, obstructive sleep apnea (CPAP at home), former smoker, hypertensio n, hyperlipidemia, diabetes, Crohn's disease, chronic atr ial fibrillation status post 3 ablations in the past (on Xarelto), pacemaker placement CAD -- multiple vesssels HTN DM HLD Crohn's disease chronic atrial fibrillation status post 3 ablati ons macular degeneration obesity obstructive sleep apnea acute respiratory failure --post surgery severe mitral valve regurgitation constrictive pericarditis CAD -- cardiology consult CV surgeon consult CABG -- AM ASA/lipitor afib -- rate control -- hold xarelto for surgery HTN-- continue home med DM-- on lantus -- sliding scale HLD-- on lipitor RONA--cpap as need DVTP -- heparin 12/18- feel sob -- CABG -- afternoon 12/19--post MVR (31 Magna valve), CABG x 1 (ROBERTS- LAD), ILAA and pericardectomy -- she remain intubated on the vent -- chest tube are in place -on levophed and epinephrine drip -- monitor in CCU 12/20- she was extubated --on bipap now -- NPO --off Levophed/epinephrine, continue vasopressi n, inotropes with milrinone, -- chest tube remain in place -- she is stable post surgery 12/21-- she is on high flow O2 -- edema --lasix --chest tube in place --- she is hemodynamic stable -- continue monitor in CCU 12/22- she remain on high O2 CXR show worsening pulmonary venous vascular co ngestion. --lasix iv tid -- chest tube are out -- off drips -- NPO -- start TPN -- continue monitor in CCU 12/23- she remain on high flow O2 --less edema -- on TPN -- she is hemodynamic stable -- continue monitor in CVICU 12/24- she get better -- she is out bed and sit on the chair -- start ambulate with PT -- continue current management review all image and consultants notes Current Medications Sig/Fabby Start time Last Medication Dose Route Stop Time Status Admin Amlodipine Besylate 5 MG DAILY 12/18 899 AC PO 01/17 859 Furosemide 10 MG DAILY 12/18 899 AC PO 01/17 859 Lisinopril 40 MG DAILY 12/18 899 AC PO 01/16 121 Losartan Potassium 100 MG DAILY 12/18 899 AC PO 01/17 859 Metolazone 10 MG DAILY 12/18 899 AC PO 01/17 859 Pantoprazole 40 MG DAILY@0600 12/18 599 AC PO 01/17 559 Cefazolin Sodium 3 GM PREOP ONCALL 12/18 499 C KD Sodium Chloride 250 ML IV 12/18 2358 Metoprolol Tartrate 6.25 MG ONCE ONE 12/18 499 AC PO 12/18 500 Vancomycin HCl 1,750 MG PREOP ONCALL 12/18 499 DC Sodium Chloride 500 ML IV 12/18 2358 Vancomycin HCl 1,750 MG PREOP ONCALL 12/18 499 CKD Sodium Chloride 500 ML IV 12/25 458 Verapamil HCl 16.6 MG .Q24H ONE 12/18 499 CKD Heparin Sodium 1,660 UNIT IV 12/19 458 (Porcine) Sodium Bicarbonate 0.7 ML Nitroglycerin/ 8.3 MG Dextrose Lactated Ringer's 949.5 ML Clonidine HCl 0.3 MG BID 12/17 2099 AC PO 01/16 2059 Doxazosin Mesylate 4 MG BEDTIME 12/17 2099 AC PO 01/16 2059 Insulin Glargine 50 UNIT BID 12/17 2099 AC SUBQ 01/16 2059 Insulin Human Lispro 0 AC HS 10/05 2100 AC SUBQ 01/16 2059 Pravastatin Sodium 10 MG 2100 12/17 2100 AC PO 01/16 2059 Dextrose/Water 125 ML ASDIR PRN 12/17 1800 CKD IV 01/16 175 Dextrose/Water 250 ML ASDIR PRN 12/17 1800 CKD IV 01/16 1759 Glucagon 1 MG ASDIR PRN 12/17 1800 AC IM 01/16 175 Atropine Sulfate 0.5 MG ASDIR PRN 12/17 1200 AC IV 12/18 1158 Sodium Chloride 1,000 ML .[id number] 12/17 1200 AC 12/17 IV 12/17 1839 1404 Sodium Chloride 500 ML ASDIR PRN 12/17 1200 AC IV 12/18 1158 Adenosine 0 .STK-MED ONE 12/17 1052 DC IV Sodium Chloride 50 ML .STK-MED ONE 12/17 1052 D C IV Iopamidol 100 ML .STK-MED ONE 12/17 1034 DC IV 12/17 1035 1034 Fentanyl Citrate 0 .STK-MED ONE 12/17 1019 DC 1 0/05 .ROUTE 1030 Midazolam HCl 0 .STK-MED ONE 12/17 1019 DC 10/0 5 .ROUTE 1030 Heparin Sodium/ 500 ML .STK-MED ONE 12/17 0949 DC 10/05 Sodium Chloride IV 1030 Heparin Sodium 0 .STK-MED ONE 12/17 0940 DC 10 05 .ROUTE 1030 Heparin Sodium/ 1,000 ML .STK-MED ONE 12/17 094 0 DC 10/05 Sodium Chloride IV 1030 Heparin Sodium/ 500 ML .STK-MED ONE 12/17 0840 DC 10/05 Sodium Chloride IV 1030 Lidocaine HCl 0 .STK-MED ONE 12/17 0940 DC 10/0 5 .ROUTE 1030 Nitroglycerin/ 250 ML .STK-MED ONE 12/17 0840 D C 12/17 Dextrose IV 1030 Verapamil HCl 0 .STK-MED ONE 12/17 0840 DC 10/0 5 IV 1030 Home Medications: RIVAROXABAN (XARELTO) 20 MG PO DAILY amLODIPine (NORVASC) 5 MG PO DAILY cloNIDine (CATAPRES) 0.3 MG PO BID DOXAZOSIN (CARDURA) LISINOPRIL (ZESTRIL) OLMESARTAN (BENICAR) 40 MG PO DAILY PRAVASTATIN (PRAVACHOL) FUROSEMIDE (LASIX) 10 MG PO DAILY METOLAZONE (ZAROXOLYN) 10 MG PO DAILY POTASSIUM CHLORIDE ER (MICRO-K) 10 MEQ PO DAILY OMEPRAZOLE ER 20 MG PO DAILY GLIMEPIRIDE (AMARYL) 4 MG PO DAILY INSULIN DETEMIR (LEVEMIR FlexTouch (15mL)) 50 UN ITS SUBQ BID INSULIN LISPRO (HumaLOG CARTRIDGE (15mL)) 0 UNIT S SUBQ TID LIRAGLUTIDE (VICTOZA (6mL)) 1.8 MG SUBQ DAILY metFORMIN (GLUCOPHAGE) 1,000 MG PO BID ADALIMUMAB + SUPPLIES (HUMIRA PREFILLED PEN) 40 MG SUBQ Q14D azaTHIOprine (IMURAN) 50 MG PO DAILY Quality: Gen Med Crit Care Current Medications Current medication review: Home Medications: RIVAROXABAN (XARELTO) 20 MG PO DAILY amLODIPine (NORVASC) 5 MG PO DAILY cloNIDine (CATAPRES) 0.3 MG PO BID DOXAZOSIN (CARDURA) LISINOPRIL (ZESTRIL) OLMESARTAN (BENICAR) 40 MG PO DAILY PRAVASTATIN (PRAVACHOL) FUROSEMIDE (LASIX) 10 MG PO DAILY METOLAZONE (ZAROXOLYN) 10 MG PO DAILY POTASSIUM CHLORIDE ER (MICRO-K) 10 MEQ PO DAILY OMEPRAZOLE ER 20 MG PO DAILY GLIMEPIRIDE (AMARYL) 4 MG PO DAILY INSULIN DETEMIR (LEVEMIR FlexTouch (15mL)) 50 UN ITS SUBQ BID INSULIN LISPRO (HumaLOG CARTRIDGE (15mL)) 0 UNIT S SUBQ TID LIRAGLUTIDE (VICTOZA (6mL)) 1.8 MG SUBQ DAILY metFORMIN (GLUCOPHAGE) 1,000 MG PO BID ADALIMUMAB + SUPPLIES (HUMIRA PREFILLED PEN) 40 MG SUBQ Q14D azaTHIOprine (IMURAN) 50 MG PO DAILY I attest that the foregoing medication list in t he medical record is true, accurate, and complete to the best of my knowled ge. Electronically Signed by Meryl Rosa MD on 2 at [address] [facility] #:[id number] END OF REPORT 2021-12-24 11:06:00-00:00 [facility] REPORT#:[id number] REPORT STATUS: Signed DATE:12/24/21 TIME: 110 PATIENT: SAÚL GILES UNIT #: [id number] ROOM/BED: [place] [address] : 43 AGE: 76 SEX: F ATTEND: Leah More MD ADM AUTHOR: Alicia Pantoja NP * ALL edits or amendments must be made on the [employer] document * Subjective Chief complaint: rehab follow-up Fatigue Still in CVICU Shortness of breath with increased activity Significant generalized weakness Bilateral lower extremity edema No GOLD/N/V/D 14 systems reviewed and negative except that men tioned above. Objective General VS: Vital Signs: Date Time Temp Pulse Resp B/P B/P Pulse O2 O2 F low FiO2 Mean Ox Delivery Rate 12/24 1415 92 98 50 12/24 1200 72 22 98 50 70 12/24 0827 73 100 70 12/24 0709 98.2 72 28 144/67 97 95 12/24 0601 98.1 69 34 175/74 106 89 12/24 0500 98.2 73 29 163/72 104 91 12/24 0401 98.6 69 25 143/64 92 95 12/24 0300 98.4 69 26 153/68 98 96 12/24 0241 69 95 50 12/24 0201 98.4 69 26 138/65 93 94 12/24 0100 98.2 74 26 157/69 99 93 12/24 0027 79 25 99 50 75 12/24 0000 98.4 71 28 145/65 94 91 12/23 2301 98.6 69 23 147/65 93 96 12/23 2202 98.8 70 36 167/70 100 90 12/24 1999 High flow 60 70 nasal cannula 12/23 1938 98.4 70 34 193/79 113 91 12/24 1907 98.2 70 28 191/82 118 94 12/23 1906 71 99 50 12/23 1906 99 BiPAP 50 12/23 1900 98.2 70 24 194/82 118 93 12/23 1806 97.9 72 25 147/73 104 93 12/23 1700 70 28 166/72 104 91 PATIENT WEIGHT: Weight (lb): 266 Weight (oz): 1.57 Weight (kg): 120.700 Medications: Active Meds + DC'd Last 24 Hrs Pantoprazole (PROTONIX) 40 MG DAILY PO Amino Acids/Electrolytes/Dextrose (TPN ADULT- CE NTRAL 2000ML) 1,080 ML 2200 IV Bisacodyl (DULCOLAX) 10 MG DAILY PRN PRN RECTAL Acetazolamide (DIAMOX) 250 MG ONCE ONE IV (DC) Sterile Water (WATER FOR INJECTION) 5 ML ASDIR P RN IV Lactulose (LACTULOSE) 20 GM DAILY PRN PRN PO Magnesium Hydroxide (MILK OF MAGNESIA) 30 ML PETER LY PRN PRN PO Aspirin (ASPIRIN) 81 MG DAILY PO Clopidogrel Bisulfate (Plavix) 75 MG DAILY PO Cyanocobalamin (Vitamin B-12 500 mcg tab) 500 MC G DAILY PO Ferrous Sulfate (FERROUS SULFATE) 300 MG DAILY P O (DC) Ferrous Sulfate (FERROUS SULFATE) 325 MG DAILY P O Metolazone (metOLazone) 5 MG DAILY PO Polyethylene Glycol (MIRALAX) 17 GM DAILY PO Potassium Chloride (POTASSIUM CHLORIDE 20MEQ TAB .ER) 20 MEQ ONCE ONE PO (DC) Lansoprazole (PREVACID) 30 MG DAILY@0600 PO (DC) Potassium Chloride (POTASSIUM CHLORIDE 20MEQ TAB .ER) 40 MEQ ONCE ONE PO (DC) Amino Acids/Electrolytes/Dextrose (TPN ADULT- CE NTRAL 1000ML) 960 ML 2200 IV Fat Emulsion (FAT EMULSION 20% (INTRALIPID)) 250 ML 2200 IV Atorvastatin Calcium (LIPITOR) 40 MG 2100 PO Docusate Sodium (DOCUSATE SODIUM) 100 MG BID PO Metoprolol Tartrate (LOPRESSOR) 12.5 MG Q12HR PO Senna (SENOKOT) 17.6 MG BEDTIME PO Acetazolamide (DIAMOX) 250 MG ONCE ONE IV (DC) Sterile Water (WATER FOR INJECTION) 5 ML ONCE ON E IV (DC) Amiodarone HCl (CORDARONE) 200 MG TID PO Acetaminophen (TYLENOL) 650 MG Q4H PRN PRN PO Tramadol HCl (ULTRAM) 25 MG Q4H PRN PRN PO Tramadol HCl (ULTRAM) 50 MG Q4H PRN PRN PO Insulin Human Regular (HumuLIN R) 100 UNIT ASDIR IV (CKD) Sodium Chloride (SODIUM CHLORIDE 0.9%) 99 ML Gabapentin (NEURONTIN) 200 MG BID 9A 5P FEED-TUB E (DC) Furosemide (LASIX 40 mg/4 mL INJECTION) 60 MG Q8 H IV (CKD) Fat Emulsion (FAT EMULSION 20% (INTRALIPID)) 100 ML 2200 IV (DC) Amino Acids/Electrolytes/Dextrose (TPN ADULT- CE NTRAL 1000ML) 840 ML 2200 IV (DC) Acetylcysteine (MUCOMYST FOR RT) 200 MG RTQ6H NE B Albuterol/Ipratropium (DUONEB) 3 ML RTQ6H NEB Bisacodyl (DULCOLAX) 10 MG ONCE PRN RECTAL Dextrose/Water (Dextrose 10% 1,000 mL) 1,000 ML ASDIR PRN IV Miscellaneous Information (TPN (Central) PHARMAC Y TO DOSE) 1 EACH ASDIR IV Dopamine HCl/Dextrose (DOPamine 400MG/D5W 250ML) 250 ML ASDIR IV Milrinone Lactate/Dextrose (MILRINONE 20MG/D5W 1 00ML) 100 ML ASDIR IV ( CKD) Vasopressin (VASOSTRICT 20 Unit/NS 100ML) 100 ML ASDIR IV (CKD) Mupirocin (BACTROBAN 2% 22 GM OINTMENT) 1 APPLIC BID NASAL (DC) Acetaminophen (TYLENOL) 650 MG Q4H PRN PRN RECTA L Calcium Chloride (CALCIUM CHLORIDE) 1 GM ASDIR P RN IV Dextrose/Water (DEXTROSE 10% IN WATER) 125 ML DIR PRN IV (CKD) Dextrose/Water (DEXTROSE 10% IN WATER) 250 ML DIR PRN IV (CKD) Epinephrine (ADRENALIN CHLORIDE) 5 MG ASDIR IV Dextrose/Water (DEXTROSE 5% WATER) 245 ML Glucagon (GLUCAGON) 1 MG ASDIR PRN IM Magnesium Sulfate (MAGNESIUM SULFATE 4GM/SWFI 10 0ML) 100 ML ASDIR PRN IV Magnesium Sulfate (MAGNESIUM SULFATE 2GM/SWFI 50 ML) 50 ML ASDIR PRN IV Magnesium Sulfate/Dextrose (MAGNESIUM SULFATE 1G M/D5W 100ML) 100 ML ASDIR PRN IV Nitroglycerin/Dextrose (NITROGLYCERIN 50,000MCG/ D5W 250ML) 250 ML ASDIR IV Norepinephrine Bitartrate (NOREPINEPHRINE 8 MG/N S 250 ML) 250 ML TITRATE IV Potassium Chloride (KCL 20MEQ/SWFI 100ML) 100 ML ASDIR PRN IV Sodium Bicarbonate (SODIUM BICARBONATE) 50 MEQ A SDIR PRN IV Sodium Chloride (SODIUM CHLORIDE 0.9%) 1,000 ML .Q20H IV (DC) Sodium Chloride (SODIUM CHLORIDE 0.9%) 250 ML Q2 4H IV (DC) Ondansetron HCl (ZOFRAN) 4 MG Q6H PRN PRN IV Vancomycin HCl (VANCOMYCIN HCL) 1,750 MG PREOP O NCALL IV (CKD) Sodium Chloride (NS 0.9%) 500 ML Physical Exam General appearance: obese, alert, awake, oriente d Psych: alert, oriented x 3 HEENT: anicteric, mucosal membranes moist Neck: supple, no JVD Cardiovascular: regular rate rhythm, no murmur Respiratory: diminished breath sounds (bases ), on oxygen (Hi flow O2 ) Abdomen: bowel sounds present, non-distended, so ft, non-tender Skin: dry, intact, no rash, incisions D/I Musculoskeletal - general: Musculoskeletal - general: swelling (BLE), movi ng all ext 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1 L 8.7 L Martin Test N/A Sodium (134 - 147 MEQ/L) 145 149 H Potassium (3.4 - 5.0 MEQ/L) 3.7 3.1 L Chloride (100 - 108 MEQ/L) 100 102 Ionized Calcium (1.12 - 1.32 MMOL/L) 1.34 H 1. 39 H Lactic Acid (0.9 - 1.7 mmol/l) 1.2 0.7 L Temperature (F) 98.2 99 O2 Delivery Device BiPAP BiPAP FiO2 (%) 50 60 Tidal Volume (ml) 18 PEEP (cmH2O) 10 8 Pressure Support (cmH2O) 14 Chemistry Sodium (134 - 147 mEq/L) 145 Potassium (3.4 - 5.0 mEq/L) 3.8 Chloride (100 - 108 mEq/L) 102 Carbon Dioxide (21 - 33 mEq/l) 37 H Anion Gap (0 - 20) 10 BUN (7 - 18 mg/dL) 64 H Creatinine (0.6 - 1.3 mg/dL) 1.1 POC Creatinine (0.6 - 1.0 mg/dL) 1.1 H 1.0 Glomerular Filtr Rate (70 - 80) 48.0 L Glucose (70 - 110 mg/dL) 246 H POC Glucose (70 - 110 MG/DL) 233 H 143 H POC Glucose (mg/dL) (70 - 110 MG/DL) 237 H 185 H Calcium (8.0 - 10.5 mg/dL) 10.4 Magnesium (1.80 - 2.40 mg/dL) 2.40 12/24 12/24 12/24 12/24 0913 0653 0535 0320 Blood Gas Puncture Site Art Line R Radial O2 Saturation (90 - 100 %) 95.7 88.7 L ABG pH (7.35 - 7.45) 7.376 7.363 ABG pCO2 (35.0 - 45 mmHg) 65.5 *H 64.5 *H ABG pO2 (80 - 100.0 mmHg) 84.5 60.3 L ABG PO2/FiO2 Ratio (mm/Hg) 120.71 75.37 ABG HCO3 (22.0 - 26.0 MMOL/L) 38.5 *H 36.8 *H ABG Total CO2 40.5 38.7 ABG Base Excess (-4.0 - 4.0 MMOL/L) 13.2 H 11. 4 H ABG Hematocrit (33.0 - 45.0 %) 26 L 24 L ABG Hemoglobin (11.0 - 15.0 G/DL) 8.9 L 8.3 L Martin Test N/A Positive Sodium (134 - 147 MEQ/L) 149 H 146 Potassium (3.4 - 5.0 MEQ/L) 3.2 L 3.1 L Chloride (100 - 108 MEQ/L) 102 102 Ionized Calcium (1.12 - 1.32 MMOL/L) 1.38 H 1.3 4 H Lactic Acid (0.9 - 1.7 mmol/l) 0.7 L 0.8 L Temperature (F) 98.1 98.6 O2 Delivery Device BiPAP HFNC FiO2 (%) 70 80 Tidal Volume (ml) 14 PEEP (cmH2O) 8 Chemistry Sodium (134 - 147 mEq/L) 148 H Potassium (3.4 - 5.0 mEq/L) 3.2 L Chloride (100 - 108 mEq/L) 103 Carbon Dioxide (21 - 33 mEq/l) 39 H Anion Gap (0 - 20) 9 BUN (7 - 18 mg/dL) 60 H Creatinine (0.6 - 1.3 mg/dL) 1.0 POC Creatinine (0.6 - 1.0 mg/dL) 1.2 H 1.0 Glomerular Filtr Rate (70 - 80) 53.6 L Glucose (70 - 110 mg/dL) 154 H POC Glucose (70 - 110 MG/DL) 142 H POC Glucose (mg/dL) (70 - 110 MG/DL) 157 H 170 H Calcium (8.0 - 10.5 mg/dL) 10.8 H Magnesium (1.80 - 2.40 mg/dL) 2.31 Hematology WBC (4.5 - 11.0 x10 3/uL) 6.3 RBC (3.54 - 5.02 x10 6/uL) 2.12 L Hgb (11.0 - 15.0 g/dL) 7.8 L Hct (33.0 - 45.0 %) 23.7 L MCV (81.0 - 99.0 fL) 111.8 H MCH (27.0 - 33.0 pg) 36.8 H MCHC (33.0 - 37.0 g/dL) 32.9 L RDW (11.5 - 14.5 %) 15.7 H Plt Count (150 - 400 x10 3/uL) 121 L MPV (7.0 - 9.0 fL) 11.1 H Neut % (Auto) (56.0 - 77.0 %) 82.8 H Lymph % (Auto) (14.0 - 32.0 %) 2.7 L Barron % (Auto) (4.8 - 9.0 %) 11.4 H Eos % (Auto) (0.3 - 3.7 %) 1.0 Baso % (Auto) (0.0 - 2.0 %) 0.2 Neut # (Auto) (2.0 - 7.6 x10 3/uL) 5.21 Lymph # (Auto) (1.0 - 3.8 x10 3/uL) 0.17 L Barron # (Auto) (0.1 - 0.8 x10 3/uL) 0.72 Eos # (Auto) (0.0 - 0.2 x10 3/uL) 0.06 Baso # (Auto) (0.0 - 0.2 x10 3/uL) 0.01 Abs Immat Gran (auto) (0.00 - 0.03 0.12 H x10 3/uL) Add Manual Diff NO Immature Gran % (0.0 - 2.0 %) 1.9 Nucleated RBC % (0 - 0 %) 2.7 H Nucleated RBCs # (Man) (0.0 - 0.1 0.17 H x10 3/uL) 12/23 12/23 12/23 12/23 2236 2123 1812 1810 Blood Gas Puncture Site Central Line Central Line ABG Hematocrit (33.0 - 45.0 %) 26 L 26 L ABG Hemoglobin (11.0 - 15.0 G/DL) 8.8 L 8.8 L Martin Test N/A VBG pH (7.33 - 7.45) 7.346 7.308 L VBG pCO2 (43 - 47 mmHg) 70.7 *H 75.8 *H VBG pO2 (10 - 50 mmHG) 39.7 37.3 VBG HCO3 (22 - 27 MMOL/L) 38.6 H 38.1 H POC VBG Total CO2 40.8 40.5 VBG O2 Saturation (60 - 80 %) 68.8 63.8 VBG Base Excess (-4.0 - 4.0 MMOL/L) 13.0 H 11.8 H VBG Temperature (F) 98.6 97.9 Sodium (134 - 147 MEQ/L) 147 147 Potassium (3.4 - 5.0 MEQ/L) 3.2 L 3.5 Chloride (100 - 108 MEQ/L) 101 102 Ionized Calcium (1.12 - 1.32 MMOL/L) 1.38 H 1. 42 H Lactic Acid (0.9 - 1.7 mmol/l) 0.8 L 0.7 L O2 Delivery Device HFNC HFNC FiO2 (%) 70 70 Tidal Volume (ml) 60 Chemistry POC Creatinine (0.6 - 1.0 mg/dL) 1.2 H 1.3 H POC Glucose (70 - 110 MG/DL) 162 H 163 H POC Glucose (mg/dL) (70 - 110 MG/DL) 176 H 186 H Diagnosis, Assessment Plan Free Text A P: 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 fib Hypoxic respiratory failure Plan: Continue PT/OT Out of bed to chair Work on strength, bed mobility, transfers, gait Increase endurance Fall precautions Monitor p.o. intake and nutrition Strict decubitus precautions Monitor anemia Advance therapies as tolerated Pt currently on TPN On BIPAP VS teleflex 60L 70%- wean as tolerated Diuresising increased - monitor strict I Os Monitor patient in CVICU Will eventually need IRF when medically ready. CLOF: ORE AWAKE TODAY BUT STILL W ELEVATED CO2. ON BIPAP MOST OF THE MORNING. Pt VERY WEAK W SIT TO STAND AND DESATS ON 15L VIA NC. PLACED BACK ON BIPAP AFTER PT SESSION. SPO2 IMPROVED TO 94% WIT H BIPAP TT;36mins, reviewing chart, notes, labs, meds, therapy notes, discussed medical mgt, and rehab poc, goals. Answered all question s Rehab attestation: Face to face exam completed. Treatment plan disc ussed with patient. at 1646 RPT #:[id number] END OF REPORT 2021-12-24 10:58:00-00:00 [facility] ([facility]) Nephrology Progress Note REPORT#:[id number] REPORT STATUS: Signed DATE:12/24/21 TIME: 1058 PATIENT: SAÚL GILES UNIT #: [id number] ROOM/BED: [place] [id number] : 43 AGE: 76 SEX: F ATTEND: Leah More MD ADM AUTHOR: Suki Fuchs MD * ALL edits or amendments must be made on the el [facility]/computer document * Subjective Chief complaint: chest pain HPI: This is a 76-year-old female who has past medica l history of hypertension, diabetes, coronary artery disease, atrial fibril lation who presented with worsening shortness of breath and on further wor k-up was 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 She was with normal kidney function prior to surgery and afte r her surgery she began to develop oliguria. Her procedure was done without any complications but after her surgery she did require pressor support for hypotension and she was intubated for respiratory acidosis and hypoxia a nd she was treated with vancomycin for infection treatment. When she was seen this morning she continued to have hypotension and her heart rate was paced by her permanent pacemaker and her urine outp ut was 20 to 30/h. Her family at bedside denied any history of kidney disease, kidney stone, chronic NSAID use or any urinary complaints. They also endorse that her b lood pressure and diabetes were mostly controlled. 12/24 Appearing comfortable, not in any distress,on BI PAP this morning. Objective General VS/I O: Vital Signs: Date Time Temp Pulse Resp B/P B/P Pulse O2 O2 F low FiO2 Mean Ox Delivery Rate 12/24 1957 71 99 45 12/24 1957 99 BiPAP 45 12/24 1800 36.6 72 29 174/58 96 100 12/24 1700 36.7 69 14 126/40 62 100 12/24 1600 36.7 75 25 170/55 90 99 12/24 1500 36.6 71 37 163/48 78 87 12/24 1415 92 98 50 12/24 1400 36.7 72 21 126/48 69 99 12/24 1300 36.6 74 27 151/53 78 84 12/24 1200 36.7 69 22 149/46 71 100 12/24 1200 72 22 98 50 70 12/24 1100 36.8 69 13 103/38 60 97 12/24 1000 183/77 110 12/24 0904 137/76 96 12/24 0827 73 100 70 12/24 0800 High flow 60 60 nasal cannula 12/24 0800 36.8 72 39 161/72 103 98 12/24 0709 36.8 72 28 144/67 97 95 12/24 0601 36.7 69 34 175/74 106 89 12/24 0500 36.8 73 29 163/72 104 91 12/24 0401 37.0 69 25 143/64 92 95 12/24 0300 36.9 69 26 153/68 98 96 12/24 0241 69 95 50 12/24 0201 36.9 69 26 138/65 93 94 12/24 0100 36.8 74 26 157/69 99 93 12/24 0027 79 25 99 50 75 12/24 0000 36.9 71 28 145/65 94 91 12/23 2301 37.0 69 23 147/65 93 96 12/23 2202 37.1 70 36 167/70 100 90 24 hour I O ending at 0700: 12/24 0700 12/23 1900 Intake Total 1270.00 1284.00 Output Total 2425 1950 Balance -1155.00 -666.00 Intake, IV 1020.00 188.00 Intake, Lipid 50 Intake, Oral 250 720 Intake, 326 TPN/PPN Number 1 Bowel Movements Output, Urine 2425 1950 Patient 120.7 kg Weight Weight Standing scale Measurement Method PATIENT WEIGHT: Weight (lb): 266 Weight (oz): 1.57 Weight (kg): 120.700 Physical Exam General appearance: alert, awake, oriented Head/eyes: atraumatic, normocephalic ENT: ET tube Neck: no JVD, no lymphadenopathy Cardiovascular: normal heart sounds, regular rat e and rhythm Respiratory: aerating well, clear to auscultatio n Abdomen: soft, no pulsatile mass Genitourinary: urinary catheter Extremities: pitting edema, no gangrene, no swel ling Treatment Prophylaxis Treatment Prophylaxis Drain(s)/tube(s): Drain(s)/tube(s): chest (x3) Diagnosis, Assessment Plan Free Text A P: This is a 76-year-old female known to have hyper tension, diabetes, atrial fibrillation, s/p permanent pacemaker and histor y of ablation presenting with shortness of breath and found to have multivesse l coronary artery disease therefore she had CABG on December 19 after which she has developed oliguria. Nephrology is following for: 1. Acute kidney injury: Most likely it i s prerenal (cardiorenal), she has been hypotensive postoperatively with require ment for pressor support and inotropic support. Plan is to increase inotropic support or pressor support to bring mean arterial pressure above 65 and give albumin with Lasix to see if it helps him diurese. If he does not respond to higher dose L asix with albumin then I will consider starting him on CRRT to prevent hyper v olemia. 2. Hypervolemia: Plan is to give Lasix a nd if he does not respond to start him on CRRT for extra fluid removal. 3. His electrolytes were all reviewed to be in normal range plan was to monitor and replace as needed. 4. He was receiving vancomycin so plan w as to monitor vancomycin trough levels to prevent ATN. 12/21 1. Acute kidney injury: Most likely it i s prerenal (cardiorenal), she has been hypotensive postoperatively with require ment for pressor support and inotropic support. She responded to Lasix after her blood pressure improved with higher dose vasopressin and she was given albumin. Plan was to continue twice a day Lasix and albumin for hypervolemia. 2. Hypervolemia: Plan is to give Lasix with albu min twice daily and increase dose if needed. 3. His electrolytes were all reviewed to be in normal range plan was to monitor and replace as needed. 4. He was receiving vancomycin so plan w as to monitor vancomycin trough levels to prevent ATN. 12/22 1. Acute kidney injury: Most likely it i s prerenal (cardiorenal), she has been hypotensive postoperatively with require ment for pressor support and inotropic support. She responded to Lasix after her blood pressure improved with higher dose vasopressin and she was given albumin. Plan was to continue Lasix and albumin for hypervolemia.Plan to increase dose t o reach goal of 1 L negative Q12H. 2. Hypervolemia: Plan is to give Lasix with albu min and increase dose if needed. 3. His electrolytes were all reviewed to be in normal range plan was to monitor and replace as needed. 4. He was receiving vancomycin so plan w as to monitor vancomycin trough levels to prevent ATN. 12/23 1. Acute kidney injury: Most likely it i s prerenal (cardiorenal), she has been hypotensive postoperatively with require ment for pressor support and inotropic support. She responded to Lasix after her blood pressure improved with higher dose vasopressin and she was given albumin. Plan was to continue Lasix and albumin for hypervolemia.Plan to increase dose t o reach goal of 1 L negative Q12H. 2. Hypervolemia: Plan is to give Lasix with albu min and increase dose if needed. 3. Her electrolytes were all reviewed to be in n ormal range plan was to monitor and replace as needed. 4. She was receiving vancomy sanjana so plan was to monitor vancomycin trough levels to prevent ATN. 5/ Metabolic alkalosis secondary to diur etics : Plan to give acetazoleamide if worsening. 12/24 1. Acute kidney injury: Resolved, she is respond ing to lasix. 2. Hypervolemia: Plan to continue lasix as rhys ated.Today it was held for metabolic alkalosis. 3. Her electrolytes were all reviewed to be in n ormal range plan was to monitor and replace as needed. 4. She was receiving vancomy sanjana so plan was to monitor vancomycin trough levels to prevent ATN. 5/ Metabolic alkalosis secondary to diur etics : Plan to give acetazoleamide if worsening. Consultants: cardiology, cardiovascular surgery Electronically Signed by Suki Fuchs MD on at 2122 RPT #:[id number] END OF REPORT 2021-12-23 19:31:00-00:00 [facility] ([facility] Nephrology Progress Note REPORT#:[id number] REPORT STATUS: Signed DATE:12/23/21 TIME: 1930 PATIENT: SAÚL GILES UNIT #: [id number] ROOM/BED: [address] : 43 AGE: 76 SEX: F ATTEND: Leah More MD ADM AUTHOR: Suki Fuchs MD * ALL edits or amendments must be made on the [facility]/computer document * Subjective Chief complaint: chest pain HPI: This is a 76-year-old female who has past medica l history of hypertension, diabetes, coronary artery disease, atrial fibril lation who presented with worsening shortness of breath and on further wor k-up was 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 She was with normal kidney function prior to surgery and afte r her surgery she began to develop oliguria. Her procedure was done without any complications but after her surgery she did require pressor support for hypotension and she was intubated for respiratory acidosis and hypoxia a nd she was treated with vancomycin for infection treatment. When she was seen this morning she continued to have hypotension and her heart rate was paced by her permanent pacemaker and her urine outp ut was 20 to 30/h. Her family at bedside denied any history of kidney disease, kidney stone, chronic NSAID use or any urinary complaints. They also endorse that her b lood pressure and diabetes were mostly controlled. 12/21 Appearing comfortable, not in any distress,on ox ygen through nasal canula. 12/23 Appearing comfortable, not in any distress,on ox ygen through nasal canula. Objective General VS/I O: Vital Signs: Date Time Temp Pulse Resp B/P B/P Pulse O2 O2 F low FiO2 Mean Ox Delivery Rate 12/23 1906 71 99 50 12/23 1906 99 BiPAP 50 12/23 1807 36.6 72 25 147/73 104 93 12/23 1700 70 28 166/72 104 91 12/23 1600 75 32 168/76 109 92 12/23 1500 69 32 145/103 117 94 12/23 1421 72 26 138/63 91 90 12/23 1300 78 28 50 12/23 1300 73 33 138/64 92 83 12/23 1201 36.5 73 27 131/60 86 88 12/23 1118 36.5 72 24 161/70 101 92 12/23 1100 36.5 71 25 155/68 98 93 12/23 1000 36.4 75 27 150/67 96 95 12/23 0900 36.1 75 23 151/67 97 96 12/23 0840 74 97 60 12/23 0805 36.3 73 26 152/67 97 90 12/23 0800 High flow 60 70 nasal cannula 12/23 0717 36.2 72 26 174/72 103 95 12/23 0700 36.3 75 24 186/77 111 91 12/23 0410 73 18 93 60 70 12/23 0125 72 18 96 60 75 12/22 2200 37.1 12/22 220 High flow 70 nasal cannula 24 hour I O ending at 0700: 12/23 0700 12/22 1900 Intake Total 1960.00 420 Output Total 1060 900 Balance 900.00 -480 Intake, IV 1710.00 Intake, Oral 250 420 Output, Chest 70 Tube Drainage Output, Urine 1060 830 Patient 125.8 kg Weight Weight Bed scale Measurement Method PATIENT WEIGHT: Weight (lb): 277 Weight (oz): 5.46 Weight (kg): 125.800 Physical Exam General appearance: alert, awake Head/eyes: atraumatic, normocephalic ENT: ET tube Neck: no JVD, no lymphadenopathy Cardiovascular: normal heart sounds, regular rat e and rhythm Respiratory: aerating well, clear to auscultatio n Abdomen: soft, no pulsatile mass Genitourinary: urinary catheter Extremities: pitting edema, no gangrene, no swel ling Treatment Prophylaxis Treatment Prophylaxis Drain(s)/tube(s): Drain(s)/tube(s): chest (x3) Diagnosis, Assessment Plan Free Text A P: This is a 76-year-old female known to have hyper tension, diabetes, atrial fibrillation, s/p permanent pacemaker and histor y of ablation presenting with shortness of breath and found to have multivesse l coronary artery disease therefore she had CABG on December 19 after which she has developed oliguria. Nephrology is following for: 1. Acute kidney injury: Most likely it i s prerenal (cardiorenal), she has been hypotensive postoperatively with require ment for pressor support and inotropic support. Plan is to increase inotropic support or pressor support to bring mean arterial pressure above 65 and give albumin with Lasix to see if it helps him diurese. If he does not respond to higher dose L asix with albumin then I will consider starting him on CRRT to prevent hyper v olemia. 2. Hypervolemia: Plan is to give Lasix a nd if he does not respond to start him on CRRT for extra fluid removal. 3. His electrolytes were all reviewed to be in normal range plan was to monitor and replace as needed. 4. He was receiving vancomycin so plan w as to monitor vancomycin trough levels to prevent ATN. 12/21 1. Acute kidney injury: Most likely it i s prerenal (cardiorenal), she has been hypotensive postoperatively with require ment for pressor support and inotropic support. She responded to Lasix after her blood pressure improved with higher dose vasopressin and she was given albumin. Plan was to continue twice a day Lasix and albumin for hypervolemia. 2. Hypervolemia: Plan is to give Lasix with albu min twice daily and increase dose if needed. 3. His electrolytes were all reviewed to be in normal range plan was to monitor and replace as needed. 4. He was receiving vancomycin so plan w as to monitor vancomycin trough levels to prevent ATN. 12/22 1. Acute kidney injury: Most likely it i s prerenal (cardiorenal), she has been hypotensive postoperatively with require ment for pressor support and inotropic support. She responded to Lasix after her blood pressure improved with higher dose vasopressin and she was given albumin. Plan was to continue Lasix and albumin for hypervolemia.Plan to increase dose t o reach goal of 1 L negative Q12H. 2. Hypervolemia: Plan is to give Lasix with albu min and increase dose if needed. 3. His electrolytes were all reviewed to be in normal range plan was to monitor and replace as needed. 4. He was receiving vancomycin so plan w as to monitor vancomycin trough levels to prevent ATN. 12/23 1. Acute kidney injury: Most likely it i s prerenal (cardiorenal), she has been hypotensive postoperatively with require ment for pressor support and inotropic support. She responded to Lasix after her blood pressure improved with higher dose vasopressin and she was given albumin. Plan was to continue Lasix and albumin for hypervolemia.Plan to increase dose t o reach goal of 1 L negative Q12H. 2. Hypervolemia: Plan is to give Lasix with albu min and increase dose if needed. 3. Her electrolytes were all reviewed to be in normal range plan was to monitor and replace as needed. 4. She was receiving vancomy sanjana so plan was to monitor vancomycin trough levels to prevent ATN. 5/ Metabolic alkalosis secondary to diur etics : Plan to give acetazoleamide if worsening. Consultants: cardiology, cardiovascular surgery Electronically Signed by Suki Fuchs MD on at 2137 RPT #:[id number] END OF REPORT 2021-12-23 14:12:00-00:00 [facility] Critical Care Progress Note REPORT#:[id number] REPORT STATUS: Signed DATE:12/23/21 TIME: 1411 PATIENT: SAÚL GILES UNIT #: [id number] ROOM/BED: [place] [id number] : 43 AGE: 76 SEX: F ATTEND: Leah More MD ADM AUTHOR: Jd Alva MD * ALL edits or amendments must be made on the el [employer]/computer document * Subjective Chief complaint: CABG/MVR HPI: 76-year-old morbidly obese f emale with history of HTN, HL, IDDM, smoking, RONA on CPAP and home O2 as needed, macular degeneration , Crohn's disease on immunosuppressant medication s, and chronic Afib s/p ablation and PPM (on Xarelto ), who was admitted recently with heart failure symptoms. Patient underwent elective cardiac cath that s howed severe multivessel coronary artery disease not suitable for percutaneous intervention. 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 She went for surgical revascularization today and preop JORDEN revealed severe mitral regurgitation. After discussing new findings with family, patient underwent MVR (31 M agna valve), CABG x 1 (ROBERTS-LAD), ILAA and pericardectomy on 12/19/2021. Has EF of 45%. Crystalloid 1 L, urine output 700, Cell Saver 700. She is a-paced at [facility]. Surgery went well and patient was transferred to CVICU pos top in a stable surgical condition. She is currently intubated on 2 mics of epine phrine, 2 mics of Levophed and insulin drip. CI 3.0, SvO2 in 60%s, CVP 15 and PAP in 60s. Comments: on Teleflex 60L/70%, bipap overnight OOB to the chair this am NGT placed for nausea, pulled by pt tolerating PO, on TPN UOP 1L, on diuresis Objective General VS/I O Last Documented: Result Date Time Pulse Ox 83 12/23 1300 B/P 138/64 12/23 1300 B/P Mean 92 12/23 1300 Pulse 73 12/23 1300 Resp 33 12/23 1300 Temp 97.7 12/23 1201 FiO2 60 12/23 0840 O2 Flow Rate 60 12/23 0410 O2 Delivery High flow nasal cannula 10/10 2200 24 hour I O ending at 0700: 1011 0700 1010 1900 Intake Total 1960.00 420 Output Total 1060 900 Balance 900.00 -480 Intake, IV 1710.00 Intake, Oral 250 420 Output, Chest 70 Tube Drainage Output, Urine 1060 830 Patient 125.8 kg Weight Weight Bed scale Measurement Method PATIENT WEIGHT: Weight (lb): 277 Weight (oz): 5.46 Weight (kg): 125.800 Medications: Active Meds + DC'd Last 24 Hrs Aspirin (ASPIRIN) 81 MG DAILY PO Clopidogrel Bisulfate (Plavix) 75 MG DAILY PO Cyanocobalamin (Vitamin B-12 500 mcg tab) 500 MC G DAILY PO Ferrous Sulfate (FERROUS SULFATE) 300 MG DAILY P O Metolazone (metOLazone) 5 MG DAILY PO Polyethylene Glycol (MIRALAX) 17 GM DAILY PO Lansoprazole (PREVACID) 30 MG DAILY@0600 PO Amino Acids/Electrolytes/Dextrose (TPN ADULT- CE NTRAL 1000ML) 960 ML 2200 IV Fat Emulsion (FAT EMULSION 20% (INTRALIPID)) 250 ML 2200 IV Atorvastatin Calcium (LIPITOR) 40 MG 2100 FEED-T UBE (DC) Atorvastatin Calcium (LIPITOR) 40 MG 2100 PO Docusate Sodium (DOCUSATE SODIUM) 100 MG BID PO Metoprolol Tartrate (LOPRESSOR) 12.5 MG Q12HR PO Senna (SENOKOT) 17.6 MG BEDTIME FEED-TUBE (DC) Senna (SENOKOT) 17.6 MG BEDTIME PO Amiodarone HCl (CORDARONE) 200 MG TID PO Magnesium Hydroxide (MILK OF MAGNESIA) 30 ML ONC E ONE PO (DC) Acetaminophen (TYLENOL) 650 MG Q4H PRN PRN PO Tramadol HCl (ULTRAM) 25 MG Q4H PRN PRN PO Tramadol HCl (ULTRAM) 50 MG Q4H PRN PRN PO Insulin Human Regular (HumuLIN R) 100 UNIT ASDIR IV (CKD) Sodium Chloride (SODIUM CHLORIDE 0.9%) 99 ML Lactulose (LACTULOSE) 20 GM ONCE ONE PO (DC) Magnesium Citrate (MAGNESIUM CITRATE) 240 ML ONC E ONE PO (CAN) Amiodarone HCl (CORDARONE) 200 MG TID FEED-TUBE (DC) Aspirin (ASPIRIN) 81 MG DAILY FEED-TUBE (DC) Clopidogrel Bisulfate (Plavix) 75 MG DAILY FEED- TUBE (DC) Cyanocobalamin (Vitamin B-12 500 mcg tab) 500 MC G DAILY FEED-TUBE (DC) Docusate Sodium (DOCUSATE SODIUM) 100 MG BID FEE D-TUBE (DC) Ferrous Sulfate (FERROUS SULFATE) 300 MG DAILY F EED-TUBE (DC) Gabapentin (NEURONTIN) 200 MG BID 9A 5P FEED-TUB E Metolazone (metOLazone) 5 MG DAILY FEED-TUBE (DC ) Metoprolol Tartrate (LOPRESSOR) 12.5 MG Q12HR FE ED-TUBE (DC) Polyethylene Glycol (MIRALAX) 17 GM DAILY FEED-T UBE (DC) Lansoprazole (PREVACID) 30 MG DAILY@0600 FEED-TU BE (DC) Albumin Human (ALBUMINAR 5% 12.5GM/250ML) 250 ML ONCE ONE IV (CAN) Furosemide (LASIX 40 mg/4 mL INJECTION) 60 MG Q8 H IV (CKD) Acetaminophen (TYLENOL) 650 MG Q4H PRN PRN FEED- TUBE (DC) Tramadol HCl (ULTRAM) 25 MG Q4H PRN PRN FEED-TUB E (DC) Tramadol HCl (ULTRAM) 50 MG Q4H PRN PRN FEED-TUB E (DC) Albumin Human (ALBUMINAR 25%) 25 GM Q8H IV Metolazone (metOLazone) 5 MG DAILY PO (DC) Fat Emulsion (FAT EMULSION 20% (INTRALIPID)) 100 ML 2200 IV Furosemide (LASIX 40 mg/4 mL INJECTION) 40 MG Q8 H IV (DC) Insulin Glargine (Lantus/Semglee) 10 UNIT BID QUINTA[place] BQ (DC) Cyanocobalamin (Vitamin B-12 500 mcg tab) 500 MC G DAILY PO (DC) Ferrous Sulfate (FERROUS SULFATE) 325 MG DAILY P O (DC) Amino Acids/Electrolytes/Dextrose (TPN ADULT- CE NTRAL 1000ML) 840 ML 2200 IV Acetylcysteine (MUCOMYST FOR RT) 200 MG RTQ6H NE B Albuterol/Ipratropium (DUONEB) 3 ML RTQ6H NEB Albumin Human (ALBUMINAR 5% 12.5GM/250ML) 12.5 G M Q12H IV (DC) Bisacodyl (DULCOLAX) 10 MG ONCE PRN RECTAL Insulin Human Lispro (HUMALOG) 0 Q6HR SUBQ (DC) Dextrose/Water (Dextrose 10% 1,000 mL) 1,000 ML ASDIR PRN IV Miscellaneous Information (TPN (Central) PHARMAC Y TO DOSE) 1 EACH ASDIR IV Clopidogrel Bisulfate (Plavix) 75 MG DAILY PO (D C) Polyethylene Glycol (MIRALAX) 17 GM DAILY PO (DC ) Dopamine HCl/Dextrose (DOPamine 400MG/D5W 250ML) 250 ML ASDIR IV Pantoprazole (PROTONIX) 40 MG DAILY@0600 PO (DC) Docusate Sodium (COLACE) 100 MG BID PO (DC) Metoprolol Tartrate (LOPRESSOR) 12.5 MG Q12HR PO (DC) Sennosides (Senna Lax 8.6 MG TABLET) 17.2 MG BED TIME PO (DC) Milrinone Lactate/Dextrose (MILRINONE 20MG/D5W 1 00ML) 100 ML ASDIR IV ( CKD) Vasopressin (VASOSTRICT 20 Unit/NS 100ML) 100 ML ASDIR IV (CKD) Aspirin (ASPIRIN) 81 MG DAILY PO (DC) Gabapentin (NEURONTIN) 200 MG BID 9A 5P PO (DC) Amiodarone HCl (CORDARONE) 200 MG TID PO (DC) Tramadol HCl (ULTRAM) 25 MG Q4H PRN PRN PO (DC) Tramadol HCl (ULTRAM) 50 MG Q4H PRN PRN PO (DC) Mupirocin (BACTROBAN 2% 22 GM OINTMENT) 1 APPLIC BID NASAL Acetaminophen (TYLENOL) 650 MG Q4H PRN PRN PO (D C) Acetaminophen (TYLENOL) 650 MG Q4H PRN PRN RECT AL Calcium Chloride (CALCIUM CHLORIDE) 1 GM ASDIR P RN IV Dextrose/Water (DEXTROSE 10% IN WATER) 125 ML DIR PRN IV (CKD) Dextrose/Water (DEXTROSE 10% IN WATER) 250 ML DIR PRN IV (CKD) Epinephrine (ADRENALIN CHLORIDE) 5 MG ASDIR IV Dextrose/Water (DEXTROSE 5% WATER) 245 ML Glucagon (GLUCAGON) 1 MG ASDIR PRN IM Magnesium Sulfate (MAGNESIUM SULFATE 4GM/SWFI 10 0ML) 100 ML ASDIR PRN IV Magnesium Sulfate (MAGNESIUM SULFATE 2GM/SWFI 50 ML) 50 ML ASDIR PRN IV Magnesium Sulfate/Dextrose (MAGNESIUM SULFATE 1G M/D5W 100ML) 100 ML ASDIR PRN IV Nitroglycerin/Dextrose (NITROGLYCERIN 50,000MCG/ D5W 250ML) 250 ML ASDIR IV Norepinephrine Bitartrate (NOREPINEPHRINE 8 MG/N S 250 ML) 250 ML TITRATE IV Potassium Chloride (KCL 20MEQ/SWFI 100ML) 100 ML ASDIR PRN IV Sodium Bicarbonate (SODIUM BICARBONATE) 50 MEQ A SDIR PRN IV Sodium Chloride (SODIUM CHLORIDE 0.9%) 1,000 ML .Q20H IV Sodium Chloride (SODIUM CHLORIDE 0.9%) 250 ML Q2 4H IV Atorvastatin Calcium (LIPITOR) 40 MG 2100 PO (DC ) Ceftriaxone Sodium (ROCEPHIN 1000MG VIAL) 1,000 MG Q24H IV (DC) Sodium Chloride (SODIUM CHLORIDE) 10 ML Ondansetron HCl (ZOFRAN) 4 MG Q6H PRN PRN IV Vancomycin HCl (VANCOMYCIN HCL) 1,750 MG PREOP O NCALL IV (CKD) Sodium Chloride (NS 0.9%) 500 ML Results Findings/data: Laboratory Tests 12/23 12/23 12/22 5301 5731 6850 Blood Gas Puncture Site Central Line R Radial Central Jennifer e O2 Saturation (90 - 100 %) 90.0 ABG pH (7.35 - 7.45) 7.313 L ABG pCO2 (35.0 - 45 mmHg) 61.5 *H ABG pO2 (80 - 100.0 mmHg) 65.8 L ABG PO2/FiO2 Ratio (mm/Hg) 90.13 ABG HCO3 (22.0 - 26.0 MMOL/L) 31.2 *H ABG Total CO2 33.1 ABG Base Excess (-4.0 - 4.0 MMOL/L) 5.0 H ABG Hematocrit (33.0 - 45.0 %) 27 L 33 35 ABG Hemoglobin (11.0 - 15.0 G/DL) 9.0 L 11.2 1 1.8 Martin Test Positive N/A VBG pH (7.33 - 7.45) 7.298 L 7.282 L VBG pCO2 (43 - 47 mmHg) 69.6 *H 61.7 *H VBG pO2 (10 - 50 mmHG) 33.8 37.2 VBG HCO3 (22 - 27 MMOL/L) 34.4 H 29.3 H POC VBG Total CO2 36.6 31.2 VBG O2 Saturation (60 - 80 %) 58.7 L 63.2 VBG Base Excess (-4.0 - 4.0 MMOL/L) 7.8 H 2.5 VBG Temperature (F) 97.3 98 Sodium (134 - 147 MEQ/L) 145 145 142 Potassium (3.4 - 5.0 MEQ/L) 3.6 3.6 6.2 *H Chloride (100 - 108 MEQ/L) 103 106 106 Ionized Calcium (1.12 - 1.32 MMOL/L) 1.40 H 1.3 8 H 1.35 H Lactic Acid (0.9 - 1.7 mmol/l) 1.1 0.8 L 0.7 L O2 Delivery Device HFNC HFNC BiPAP Vent Mode BIVENT FiO2 (%) 70 73 40 Tidal Volume (ml) 60 12/22 1549 Blood Gas Puncture Site Central Line ABG Hematocrit (33.0 - 45.0 %) 24 L ABG Hemoglobin (11.0 - 15.0 G/DL) 8.1 L Martin Test N/A VBG pH (7.33 - 7.45) 7.226 L VBG pCO2 (43 - 47 mmHg) 74.1 *H VBG pO2 (10 - 50 mmHG) 36.8 VBG HCO3 (22 - 27 MMOL/L) 30.9 H POC VBG Total CO2 33.2 VBG O2 Saturation (60 - 80 %) 58.2 L VBG Base Excess (-4.0 - 4.0 MMOL/L) 3.2 VBG Temperature (F) 98 Sodium (134 - 147 MEQ/L) 143 Potassium (3.4 - 5.0 MEQ/L) 3.6 Chloride (100 - 108 MEQ/L) 103 Ionized Calcium (1.12 - 1.32 MMOL/L) 1.35 H Lactic Acid (0.9 - 1.7 mmol/l) 0.6 L Respiration Rate (/min) 20 O2 Delivery Device Vapotherm FiO2 (%) 60 Tidal Volume (ml) 550 Laboratory Tests 12/23 12/23 12/23 12/23 12/23 1341 1323 1215 0850 0632 Chemistry POC Creatinine (0.6 - 1.0 mg/dL) 1.3 H POC Glucose (70 - 110 MG/DL) 236 H 250 H 232 H 213 H POC Glucose (mg/dL) (70 - 110 MG/DL) 326 H 12/23 12/23 12/23 12/22 12/22 0400 0357 0032 2230 2141 Chemistry Sodium (134 - 147 mEq/L) 144 Potassium (3.4 - 5.0 mEq/L) 3.9 Chloride (100 - 108 mEq/L) 107 Carbon Dioxide (21 - 33 mEq/l) 28 Anion Gap (0 - 20) 13 BUN (7 - 18 mg/dL) 33 H Creatinine (0.6 - 1.3 mg/dL) 1.1 POC Creatinine (0.6 - 1.0 mg/dL) 1.1 H Glomerular Filtr Rate (70 - 80) 48.0 L Glucose (70 - 110 mg/dL) 222 H POC Glucose (70 - 110 MG/DL) 222 H 168 H POC Glucose (mg/dL) (70 - 110 MG/DL) 234 H Calcium (8.0 - 10.5 mg/dL) 10.5 Magnesium (1.80 - 2.40 mg/dL) 2.42 H 12/22 12/22 12/22 1750 1747 1549 Chemistry POC Creatinine (0.6 - 1.0 mg/dL) 1.1 H 1.2 H POC Glucose (70 - 110 MG/DL) 238 H POC Glucose (mg/dL) (70 - 110 MG/DL) 236 H 371 H Laboratory Tests 12/230 Hematology WBC (4.5 - 11.0 x10 3/uL) 6.3 RBC (3.54 - 5.02 x10 6/uL) 2.44 L Hgb (11.0 - 15.0 g/dL) 8.7 L Hct (33.0 - 45.0 %) 27.6 L MCV (81.0 - 99.0 fL) 113.1 H MCH (27.0 - 33.0 pg) 35.7 H MCHC (33.0 - 37.0 g/dL) 31.5 L RDW (11.5 - 14.5 %) 15.9 H Plt Count (150 - 400 x10 3/uL) 92 L MPV (7.0 - 9.0 fL) 11.9 H Neut % (Auto) (56.0 - 77.0 %) 86.0 H Lymph % (Auto) (14.0 - 32.0 %) 3.0 L Barron % (Auto) (4.8 - 9.0 %) 9.2 H Eos % (Auto) (0.3 - 3.7 %) 0.5 Baso % (Auto) (0.0 - 2.0 %) 0.2 Neut # (Auto) (2.0 - 7.6 x10 3/uL) 5.42 Lymph # (Auto) (1.0 - 3.8 x10 3/uL) 0.19 L Barron # (Auto) (0.1 - 0.8 x10 3/uL) 0.58 Eos # (Auto) (0.0 - 0.2 x10 3/uL) 0.03 Baso # (Auto) (0.0 - 0.2 x10 3/uL) 0.01 Abs Immat Gran (auto) (0.00 - 0.03 x10 3/uL) 0. 07 H Add Manual Diff NO Immature Gran % (0.0 - 2.0 %) 1.1 Nucleated RBC % (0 - 0 %) 0.5 H Nucleated RBCs # (Man) (0.0 - 0.1 x10 3/uL) 0.0 3 Laboratory Tests 12/23/21 0400: [Embedded Image Not Available] 12/22/21 2230: [Embedded Image Not Available] Radiology data Recent Impressions: RADIOLOGY - XR ABDOMEN 1V (KUB) 12/22 2134 Report Impression - Status: SIGNED Entered: 12/22/2021 2155 IMPRESSION: Nonspecific lower abdomen small bowel distention . If symptoms persist or worsen, follow-up imaging may be perf ormed to better assess for small bowel obstruction Impression By: [email or web address] Herminia Lilly M.D. RADIOLOGY - XR ABDOMEN 1V (KUB) 12/23 0055 Report Impression - Status: SIGNED Entered: 12/23/2021 0122 IMPRESSION: 1. A nasogastric tube terminates overlying the s tomach. 2. Dilated small bowel loops in the left lower q uadrant. Impression By: [email or web address] Herminia Mendiola M.D RADIOLOGY - XR CHEST 1 V 12/23 0655 Report Impression - Status: SIGNED Entered: 12/23/2021 0807 IMPRESSION: Stable postoperative chest, followin g removal of bilateral chest tubes. Impression By: [email or web address] - Enrico Kelley Free Text Obj Notes Free Text Obj Notes: General appearance: elderly female in no acute d istress, interactive HEENT: atraumatic, normocephalic, moist mucosal membranes Neck: full range of motion, supple/no meningismu s Cardiovascular: S1S2 regular rate and rhythm, a- paced Respiratory: symmetric expansion, no acute respi ratory distress Abdomen: soft, obese, non-tender, no distention, no guarding Genitourinary: [place] with clear urine Extremities: pedal pulses palpable, moves all, n o clubbing, no cyanosis, LE edema Musculoskeletal: normal inspection, no muscle sp asm 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 S/P MVR (mitral valve replacement) 2. S/P CABG x 1 3. Postoperative pulmonary dysfunction after ca rdiac surgery 4. Severe mitral regurgitation 5. CAD (coronary artery disease) 6. CKD (chronic kidney disease) 7. Immunosuppressed status 8. RONA on CPAP 9. Chronic a-fib 10. Crohn disease Free text A P: 76-year-old morbidly obese f emale with history of HTN, HL, IDDM, smoking, RNOA on CPAP and home O2 as needed, macular degeneration , Crohn's disease on immunosuppressant medication s, and chronic Afib s/p ablation and PPM (on Xarelto ), who was admitted recently with heart failure symptoms. Patient underwent elective cardiac cath that s howed severe multivessel coronary artery disease not suitable for percutaneous intervention. 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 She went for surgical revascularization today and preop JORDEN revealed severe mitral regurgitation. After discussing new findings with family, patient underwent MVR (31 M agna valve), CABG x 1 (ROBERTS-LAD), ILAA and pericardectomy on 12/19/2021. Has EF of 45%. Crystalloid 1 L, urine output 700, Cell Saver 700. She is a-paced at [facility]. Surgery went well and patient was transferred to CVICU pos top in a stable surgical condition. She is currently intubated on 2 mics of epine phrine, 2 mics of Levophed and insulin drip. CI 3.0, SvO2 in 60%s, CVP 15 and PAP in 60s. Neuro: appears intact, keep off sedation, multim odal pain control, minimize narcotics use Respiratory: sats well on minimal vent s ettings, CPAP trial as tolerated, plan for extubation, may need bipap, obtain serial AB Gs, CXR reviewed Cardiovascular: Hemodynamically unstable on vaso pressors, attempt to wean, monitor PAP and hemodynamic parameters, keep CTs to suction Renal: strict I/Os, monitor Cr and electrolytes, mild lactic acidosis, trend LA, resuscitate as needed, home diuretics on hold GI: bedside swallow then ora l diet after extubation, keep NPO if required bipap, bowel regimen ID: trend WBC, continue periop antibiotics per p rotocol, low threshold for infection work-up Hem: acute postop anemia and thrombocytopenia, m onitor Hgb and CTs output, no evidence of active bleed, tr ansfuse as needed, holding off on immunosuppressive meds Endo: Blood glucose control with insulin gtt per protocol Misc: PTOT consult, DVT and GI ppx with DAPT and PPI (home med) 12/20 Appears neuro intact, multimodal pain co ntrol, monitor for CO2 narcosis, avoid narcotics Extubated successfully, required BiPAP f or hypoxia and hypercapnia, attempt to wean, obtain serial ABGs, CXR reviewed, has pulm onary edema Improved hemodynamics, off L evophed/epinephrine, continue vasopressin, inotropes with milrinone, monitor hemodynamic parameters a nd wean per CT surgery Mild MARCELLO, Cr uptrending with marginal urine outp ut, started dopamine drip Keep NPO for now while on BiPAP, bowel regimen, monitor LFTs No fevers or leukocytosis, g iven periop antibiotics, patient is immunosuppressed Hemoglobin and platelets rui nding down, no evidence of active bleed, monitor CTs output Blood glucose control with insulin drip PT/OT and out of bed to chair if tolerated DVT and GI prophylaxis with DAPT and PPI 12/21 Appears neuro intact, multimodal pain co ntrol, monitor for CO2 narcosis, avoid narcotics BiPAP for hypercapnia, attempt to wean, keep O2 sats >90%, obtain serial ABGs, CXR reviewed HD stable off vasopressors and inotropes, turn o ff vasopressin, monitor for arrhythmia Mild MARCELLO, Cr trending down, improved urine outpu t with diuresis, off dopamine drip, renal on board Keep NPO while on BiPAP, otherwise, will start o ral diet, start TPN per CT surgery No fevers or leukocytosis, complete antibiotic c ourse for UTI Hemoglobin and platelets jaja ear stable, no evidence of active bleed, monitor CTs output Blood glucose control with sliding scale insulin PT/OT and out of bed to chair if tolerated DVT and GI prophylaxis with DAPT and PPI 12/22 Appears neuro intact, multimodal pain co ntrol, monitor for CO2 narcosis, avoid narcotics BiPAP for hypercapnia, sats well on Tele flex, keep O2 sats >90%, obtain serial ABGs, CXR reviewed, may need right sided thorace ntesis, obtain right chest ultrasound Remains HD stable off vasopressors and inotropes , no more reported arrhythmia Mild MARCELLO, Cr trending down, improved uri ne output, continue diuresis per renal Oral diet as tolerated if re alan off BiPAP, bowel regimen, continue TPN per CT surgery No fevers or leukocytosis, complete antibiotic c ourse for UTI Hemoglobin and platelets appear stable, no evide nce of active bleed, remove chest tubes Blood glucose control with sliding scale insulin PT/OT and OOB as tolerated, obtain IPR DVT and GI prophylaxis with DAPT and PPI 12/23 Remains neuro intact, multim odal pain control, monitor for CO2 narcosis and ICU delirium BiPAP for hypercapnia, wean Teleflex to keep O2 sats >90%, obtain VBG as needed, CXR reviewed, improved right-sided pleural effus ion, holding off on thoracentesis Remains HD stable off vasopressors and inotropes , no more reported arrhythmia Mild MARCELLO resolved, good urine output, increase d iuresis per renal, add Diamox PO challenge if remains off BiPAP, KUB noted, hold off on NGT, stop TPN, replete hypokalemia No fevers or leukocytosis, c omplete antibiotic course for UTI, has yeast, remove [place] Anemia and thrombocytopenia, Hgb and plt appear stable, no evidence of active bleeding Blood glucose uncontrolled, restart insulin drip PT/OT and OOB as tolerated, IPR consulted DVT and GI prophylaxis with DAPT and PPI Consultants: cardiology, cardiovascular surgery Plan discussed with: patient, family, co nsultants, nurse, interdisc care team, pharmacy/pharmacist Critical care time: Minutes: 37 Electronically Signed by Jd Alva MD on 12/13 05/06 at 0621 RPT #:[id number] END OF REPORT 2021-12-23 12:52:00-00:[address] [facility] ([facility] Cardiology Progress Note REPORT#:[id number] REPORT STATUS: Signed DATE:12/23/21 TIME: 1252 PATIENT: SAÚL GILES UNIT #: [id number] ROOM/BED: [place] [id number] : 43 AGE: 76 SEX: F ATTEND: Leah More MD ADM AUTHOR: Isabella Clemens PHP MYSQL DEVELOPER * ALL edits or amendments must be made on the [employer]/computer document * Subjective Comments: Awake and alert. On Teleflex. Volume overloaded. Objective General VS/I O: 24 hour I O ending at 0700: 12/23 0700 12/22 1900 Intake Total 1960.00 420 Output Total 1060 900 Balance 900.00 -480 Intake, IV 1710.00 Intake, Oral 250 420 Output, Chest 70 Tube Drainage Output, Urine 1060 830 Patient 125.8 kg Weight Weight Bed scale Measurement Method Vital Signs: Date Time Temp Pulse Resp B/P B/P Pulse O2 O2 Flow FiO2 Mean Ox Delivery Rate 12/23 0840 74 97 60 12/23 0410 73 18 93 60 70 12/23 0125 72 18 96 60 75 12/22 2200 37.1 12/22 2200 High flow 70 nasal cannula 12/22 1938 71 18 95 60 70 12/22 1939 72 18 60 12/22 1939 100 60 12/22 1800 36.3 69 25 145/65 93 100 12/22 1700 36.2 69 25 132/61 88 95 12/22 1600 36.1 75 8 130/60 86 94 12/22 1501 70 94 50 12/22 1500 36.1 69 23 137/61 88 93 12/22 1442 70 16 93 60 72 12/22 1415 36.3 72 12 93 12/22 1400 36.3 72 19 119/58 83 90 12/22 1349 36.4 72 16 92 12/22 1345 36.4 72 19 117/58 82 93 12/22 1330 36.4 72 24 109/55 79 94 12/22 1315 36.5 72 13 129/60 87 93 12/22 1300 36.6 81 33 143/76 102 92 PATIENT WEIGHT: Weight (lb): 277 Weight (oz): 5.46 Weight (kg): 125.800 Medications: Active Meds + DC'd Last 24 Hrs Aspirin (ASPIRIN) 81 MG DAILY PO Clopidogrel Bisulfate (Plavix) 75 MG DAILY PO Cyanocobalamin (Vitamin B-12 500 mcg tab) 500 MC G DAILY PO Ferrous Sulfate (FERROUS SULFATE) 300 MG DAILY P O Metolazone (metOLazone) 5 MG DAILY PO Polyethylene Glycol (MIRALAX) 17 GM DAILY PO Lansoprazole (PREVACID) 30 MG DAILY@0600 PO Amino Acids/Electrolytes/Dextrose (TPN ADULT- CE NTRAL 1000ML) 960 ML 2200 IV Fat Emulsion (FAT EMULSION 20% (INTRALIPID)) 250 ML 2200 IV Atorvastatin Calcium (LIPITOR) 40 MG 2100 FEED-T UBE (DC) Atorvastatin Calcium (LIPITOR) 40 MG 2100 PO Docusate Sodium (DOCUSATE SODIUM) 100 MG BID PO Metoprolol Tartrate (LOPRESSOR) 12.5 MG Q12HR PO Senna (SENOKOT) 17.6 MG BEDTIME FEED-TUBE (DC) Senna (SENOKOT) 17.6 MG BEDTIME PO Amiodarone HCl (CORDARONE) 200 MG TID PO Acetaminophen (TYLENOL) 650 MG Q4H PRN PRN PO Tramadol HCl (ULTRAM) 25 MG Q4H PRN PRN PO Tramadol HCl (ULTRAM) 50 MG Q4H PRN PRN PO Insulin Human Regular (HumuLIN R) 100 UNIT ASDIR IV (CKD) Sodium Chloride (SODIUM CHLORIDE 0.9%) 99 ML Lactulose (LACTULOSE) 20 GM ONCE ONE PO (DC) Magnesium Citrate (MAGNESIUM CITRATE) 240 ML ONC E ONE PO (CAN) Amiodarone HCl (CORDARONE) 200 MG TID FEED-TUBE (DC) Aspirin (ASPIRIN) 81 MG DAILY FEED-TUBE (DC) Clopidogrel Bisulfate (Plavix) 75 MG DAILY FEED- TUBE (DC) Cyanocobalamin (Vitamin B-12 500 mcg tab) 500 MC G DAILY FEED-TUBE (DC) Docusate Sodium (DOCUSATE SODIUM) 100 MG BID FEE D-TUBE (DC) Ferrous Sulfate (FERROUS SULFATE) 300 MG DAILY F EED-TUBE (DC) Gabapentin (NEURONTIN) 200 MG BID 9A 5P FEED-TUB E Metolazone (metOLazone) 5 MG DAILY FEED-TUBE (D C) Metoprolol Tartrate (LOPRESSOR) 12.5 MG Q12HR FE ED-TUBE (DC) Polyethylene Glycol (MIRALAX) 17 GM DAILY FEED-T UBE (DC) Lansoprazole (PREVACID) 30 MG DAILY@0600 FEED-TU BE (DC) Albumin Human (ALBUMINAR 5% 12.5GM/250ML) 250 ML ONCE ONE IV (CAN) Furosemide (LASIX 40 mg/4 mL INJECTION) 60 MG Q8 H IV (CKD) Acetaminophen (TYLENOL) 650 MG Q4H PRN PRN FEED- TUBE (DC) Tramadol HCl (ULTRAM) 25 MG Q4H PRN PRN FEED-TUB E (DC) Tramadol HCl (ULTRAM) 50 MG Q4H PRN PRN FEED-TUB E (DC) Albumin Human (ALBUMINAR 25%) 25 GM Q8H IV Metolazone (metOLazone) 5 MG DAILY PO (DC) Fat Emulsion (FAT EMULSION 20% (INTRALIPID)) 100 ML 2200 IV Furosemide (LASIX 40 mg/4 mL INJECTION) 40 MG Q8 H IV (DC) Insulin Glargine (Lantus/Semglee) 10 UNIT BID QUINTANA BQ (DC) Cyanocobalamin (Vitamin B-12 500 mcg tab) 500 MC G DAILY PO (DC) Ferrous Sulfate (FERROUS SULFATE) 325 MG DAILY P O (DC) Amino Acids/Electrolytes/Dextrose (TPN ADULT- CE NTRAL 1000ML) 840 ML 2200 IV Acetylcysteine (MUCOMYST FOR RT) 200 MG RTQ6H NE B Albuterol/Ipratropium (DUONEB) 3 ML RTQ6H NEB Albumin Human (ALBUMINAR 5% 12.5GM/250ML) 12.5 G M Q12H IV (DC) Bisacodyl (DULCOLAX) 10 MG ONCE PRN RECTAL Insulin Human Lispro (HUMALOG) 0 Q6HR SUBQ (DC) Dextrose/Water (Dextrose 10% 1,000 mL) 1,000 ML ASDIR PRN IV Miscellaneous Information (TPN (Central) PHARMAC Y TO DOSE) 1 EACH ASDIR IV Clopidogrel Bisulfate (Plavix) 75 MG DAILY PO (D C) Polyethylene Glycol (MIRALAX) 17 GM DAILY PO (DC ) Dopamine HCl/Dextrose (DOPamine 400MG/D5W 250ML) 250 ML ASDIR IV Pantoprazole (PROTONIX) 40 MG DAILY@0600 PO (DC) Docusate Sodium (COLACE) 100 MG BID PO (DC) Metoprolol Tartrate (LOPRESSOR) 12.5 MG Q12HR PO (DC) Sennosides (Senna Lax 8.6 MG TABLET) 17.2 MG BED TIME PO (DC) Milrinone Lactate/Dextrose (MILRINONE 20MG/D5W 1 00ML) 100 ML ASDIR IV ( CKD) Vasopressin (VASOSTRICT 20 Unit/NS 100ML) 100 ML ASDIR IV (CKD) Aspirin (ASPIRIN) 81 MG DAILY PO (DC) Gabapentin (NEURONTIN) 200 MG BID 9A 5P PO (DC) Amiodarone HCl (CORDARONE) 200 MG TID PO (DC) Tramadol HCl (ULTRAM) 25 MG Q4H PRN PRN PO (DC) Tramadol HCl (ULTRAM) 50 MG Q4H PRN PRN PO (DC) Mupirocin (BACTROBAN 2% 22 GM OINTMENT) 1 APPLIC BID NASAL Acetaminophen (TYLENOL) 650 MG Q4H PRN PRN PO (D C) Acetaminophen (TYLENOL) 650 MG Q4H PRN PRN RECTA L Calcium Chloride (CALCIUM CHLORIDE) 1 GM ASDIR P RN IV Dextrose/Water (DEXTROSE 10% IN WATER) 125 ML DIR PRN IV (CKD) Dextrose/Water (DEXTROSE 10% IN WATER) 250 ML DIR PRN IV (CKD) Epinephrine (ADRENALIN CHLORIDE) 5 MG ASDIR IV Dextrose/Water (DEXTROSE 5% WATER) 245 ML Glucagon (GLUCAGON) 1 MG ASDIR PRN IM Magnesium Sulfate (MAGNESIUM SULFATE 4GM/SWFI 10 0ML) 100 ML ASDIR PRN IV Magnesium Sulfate (MAGNESIUM SULFATE 2GM/SWFI 50 ML) 50 ML ASDIR PRN IV Magnesium Sulfate/Dextrose (MAGNESIUM SULFATE 1G M/D5W 100ML) 100 ML ASDIR PRN IV Nitroglycerin/Dextrose (NITROGLYCERIN 50,000MCG/ D5W 250ML) 250 ML ASDIR IV Norepinephrine Bitartrate (NOREPINEPHRINE 8 MG/N S 250 ML) 250 ML TITRATE IV Potassium Chloride (KCL 20MEQ/SWFI 100ML) 100 M L ASDIR PRN IV Sodium Bicarbonate (SODIUM BICARBONATE) 50 MEQ A SDIR PRN IV Sodium Chloride (SODIUM CHLORIDE 0.9%) 1,000 ML .Q20H IV Sodium Chloride (SODIUM CHLORIDE 0.9%) 250 ML Q2 4H IV Atorvastatin Calcium (LIPITOR) 40 MG 2100 PO (DC ) Ceftriaxone Sodium (ROCEPHIN 1000MG VIAL) 1,000 MG Q24H IV (DC) Sodium Chloride (SODIUM CHLORIDE) 10 ML Ondansetron HCl (ZOFRAN) 4 MG Q6H PRN PRN IV Vancomycin HCl (VANCOMYCIN HCL) 1,750 MG PREOP O NCALL IV (CKD) Sodium Chloride (NS 0.9%) 500 ML Status post: CABG, MVR, and ILAA Physical Exam General appearance: obese, awake ENT: moist mucosal membranes Neck: no JVD Cardiovascular: CV assessment: regular rate and rhythm Respiratory: on oxygen, rhonchi Abdomen: obese Genitourinary: no flank pain, no urinary cathete r Upper extremity: UE assessment: normal temperature, no edema Lower extremity: LE assessment: edema 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 1 L Martin Test Positive N/A N/A VBG pH (7.33 - 7.45) 7.282 L 7.226 L VBG pCO2 (43 - 47 mmHg) 61.7 *H 74.1 *H VBG pO2 (10 - 50 mmHG) 37.2 36.8 VBG HCO3 (22 - 27 MMOL/L) 29.3 H 30.9 H POC VBG Total CO2 31.2 33.2 VBG O2 Saturation (60 - 80 %) 63.2 58.2 L VBG Base Excess (-4.0 - 4.0 MMOL/L) 2.5 3.2 VBG Temperature (F) 98 98 Sodium (134 - 147 MEQ/L) 145 142 143 Potassium (3.4 - 5.0 MEQ/L) 3.6 6.2 *H 3.6 Chloride (100 - 108 MEQ/L) 106 106 103 Ionized Calcium (1.12 - 1.32 MMOL/L) 1.38 H 1.3 5 H 1.35 H Lactic Acid (0.9 - 1.7 mmol/l) 0.8 L 0.7 L 0.6 L Respiration Rate (/min) 20 O2 Delivery Device HFNC BiPAP Vapotherm Vent Mode BIVENT FiO2 (%) 73 40 60 Tidal Volume (ml) 550 Laboratory Tests 12/23 12/23 12/23 12/23 12/23 1215 0850 0632 0400 0357 Chemistry Sodium (134 - 147 mEq/L) 144 Potassium (3.4 - 5.0 mEq/L) 3.9 Chloride (100 - 108 mEq/L) 107 Carbon Dioxide (21 - 33 mEq/l) 28 Anion Gap (0 - 20) 13 BUN (7 - 18 mg/dL) 33 H Creatinine (0.6 - 1.3 mg/dL) 1.1 POC Creatinine (0.6 - 1.0 mg/dL) 1.1 H Glomerular Filtr Rate (70 - 80) 48.0 L Glucose (70 - 110 mg/dL) 222 H POC Glucose (70 - 110 MG/DL) 250 H 232 H 213 H POC Glucose (mg/dL) (70 - 110 MG/DL) 234 H Calcium (8.0 - 10.5 mg/dL) 10.5 Magnesium (1.80 - 2.40 mg/dL) 2.42 H 12/23 12/22 12/22 12/22 12/22 0032 2230 2141 1750 1747 Chemistry Sodium (134 - 147 mEq/L) POC Creatinine (0.6 - 1.0 mg/dL) 1.1 H POC Glucose (70 - 110 MG/DL) 222 H 168 H 238 H POC Glucose (mg/dL) (70 - 110 MG/DL) 236 H 12/22 1549 Chemistry POC Creatinine (0.6 - 1.0 mg/dL) 1.2 H POC Glucose (mg/dL) (70 - 110 MG/DL) 371 H Laboratory Tests 12/23 0400 Hematology WBC (4.5 - 11.0 x10 3/uL) 6.3 RBC (3.54 - 5.02 x10 6/uL) 2.44 L Hgb (11.0 - 15.0 g/dL) 8.7 L Hct (33.0 - 45.0 %) 27.6 L MCV (81.0 - 99.0 fL) 113.1 H MCH (27.0 - 33.0 pg) 35.7 H MCHC (33.0 - 37.0 g/dL) 31.5 L RDW (11.5 - 14.5 %) 15.9 H Plt Count (150 - 400 x10 3/uL) 92 L MPV (7.0 - 9.0 fL) 11.9 H Neut % (Auto) (56.0 - 77.0 %) 86.0 H Lymph % (Auto) (14.0 - 32.0 %) 3.0 L Barron % (Auto) (4.8 - 9.0 %) 9.2 H Eos % (Auto) (0.3 - 3.7 %) 0.5 Baso % (Auto) (0.0 - 2.0 %) 0.2 Neut # (Auto) (2.0 - 7.6 x10 3/uL) 5.42 Lymph # (Auto) (1.0 - 3.8 x10 3/uL) 0.19 L Barron # (Auto) (0.1 - 0.8 x10 3/uL) 0.58 Eos # (Auto) (0.0 - 0.2 x10 3/uL) 0.03 Baso # (Auto) (0.0 - 0.2 x10 3/uL) 0.01 Abs Immat Gran (auto) (0.00 - 0.03 x10 3/uL) 0. 07 H Add Manual Diff NO Immature Gran % (0.0 - 2.0 %) 1.1 Nucleated RBC % (0 - 0 %) 0.5 H Nucleated RBCs # (Man) (0.0 - 0.1 x10 3/uL) 0.0 3 Laboratory Tests 12/23 0400 Chemistry Magnesium (1.80 - 2.40 mg/dL) 2.42 H Radiology data: Recent Impressions: RADIOLOGY - XR ABDOMEN 1V (KUB) 12/22 2133 Report Impression - Status: SIGNED Entered: 12/22/2021 2155 IMPRESSION: Nonspecific lower abdomen small bowel distention . If symptoms persist or worsen, follow-up imaging may be perf ormed to better assess for small bowel obstruction Impression By: [email or web address] - Anoop Lilly M.D. RADIOLOGY - XR ABDOMEN 1V (KUB) 12/23 0055 Report Impression - Status: SIGNED Entered: 12/23/2021 0122 IMPRESSION: 1. A nasogastric tube terminates overlying the s tomach. 2. Dilated small bowel loops in the left lower q uadrant. Impression By: [email or web address] - Sanchez Mendiola M.D RADIOLOGY - XR CHEST 1 V 12/23 0655 Report Impression - Status: SIGNED Entered: 12/23/2021 0807 IMPRESSION: Stable postoperative chest, followin g removal of bilateral chest tubes. Impression By: [email or web address] - Enrico Kelley Telemetry Interpretation: paced Diagnosis, Assessment Plan Plan discussed with: patient, daughter Free Text DxA P Notes Free Text DxA P Notes: Ms Giles is a 76 y/o Femal w / PMHx: CAD, HLD, T2DM, RONA (CPAP at home), smoker, Crohn's disease, AF s/p ablation (on Xarelto), s /p PPM and lymphedema. Dr. Fortune is consulted for CAD s/p CABG, MVR. - CAD s/p CABG, MVR, and ILAA. post-op per CTS and critical care On Plavix, aspirin, beta-delma, statin volume management per Nephrology - Chr AF s/p PPM/ablation. Rate controlled, pace d rhythm. had ILAA during bypass - HTN. BP stable - HLD. On statins. - Crohn's disease. Per IM. -MARCELLO - resolving per Nephrology -Resp insufficiency on teleflex need more diuresis - renal managing diuretic continue supportive care at 1512 Electronically Signed by Aruna Fortune MD on at 2254 RPT #:[id number] END OF REPORT 2021-12-23 12:17:00-00:00 [facility] ([facility] Rehab Progress Note REPORT#:[id number] REPORT STATUS: Signed DATE:12/23/21 TIME: 1217 PATIENT: SAÚL GILES UNIT #: [id number] ROOM/BED: [place] [id number] : 43 AGE: 76 SEX: F ATTEND: Leah More MD ADM AUTHOR: Alicia Pantoja CHILD WATCH ATTENDANT * ALL edits or amendments must be made on the [employer] document * Subjective Chief complaint: rehab follow-up Fatigue Shortness of breath with increased activity Significant generalized weakness Bilateral lower extremity edema No GOLD/N/V/D 14 systems reviewed and negative except that men tioned above. Objective General VS: Vital Signs: Date Time Temp Pulse Resp B/P B/P Pulse O2 O2 F low FiO2 Mean Ox Delivery Rate 12/23 0840 74 97 60 12/23 0410 73 18 93 60 70 12/23 0125 72 18 96 60 75 12/22 2199 98.7 12/22 2199 High flow 70 nasal cannula 12/22 1938 71 18 95 60 70 12/22 1938 72 18 60 12/22 1938 100 60 12/22 1800 97.3 69 25 145/65 93 100 12/22 1700 97.2 69 25 132/61 88 95 12/22 1600 97.0 75 8 130/60 86 94 12/22 1501 70 94 50 12/22 1500 97.0 69 23 137/61 88 93 12/22 1442 70 16 93 60 72 12/22 1415 97.3 72 12 93 10/10 1400 97.3 72 19 119/58 83 90 12/22 1349 97.5 72 16 92 12/22 1345 97.5 72 19 117/58 82 93 12/22 1330 97.5 72 24 109/55 79 94 12/22 1315 97.7 72 13 129/60 87 93 12/22 1300 97.9 81 33 143/76 102 92 12/22 1245 81 16 94 60 72 12/22 1245 97.9 69 23 137/75 99 93 12/22 1235 97.9 72 20 145/67 96 90 12/22 1230 76 35 PATIENT WEIGHT: Weight (lb): 277 Weight (oz): 5.46 Weight (kg): 125.800 Medications: Active Meds + DC'd Last 24 Hrs Aspirin (ASPIRIN) 81 MG DAILY PO Clopidogrel Bisulfate (Plavix) 75 MG DAILY PO Cyanocobalamin (Vitamin B-12 500 mcg tab) 500 MC G DAILY PO Ferrous Sulfate (FERROUS SULFATE) 300 MG DAILY P O Metolazone (metOLazone) 5 MG DAILY PO Polyethylene Glycol (MIRALAX) 17 GM DAILY PO Lansoprazole (PREVACID) 30 MG DAILY@0600 PO Amino Acids/Electrolytes/Dextrose (TPN ADULT- CE NTRAL 1000ML) 960 ML 2200 IV Fat Emulsion (FAT EMULSION 20% (INTRALIPID)) 250 ML 2200 IV Atorvastatin Calcium (LIPITOR) 40 MG 2100 FEED-T UBE (DC) Atorvastatin Calcium (LIPITOR) 40 MG 2100 PO Docusate Sodium (DOCUSATE SODIUM) 100 MG BID PO Metoprolol Tartrate (LOPRESSOR) 12.5 MG Q12HR PO Senna (SENOKOT) 17.6 MG BEDTIME FEED-TUBE (DC) Senna (SENOKOT) 17.6 MG BEDTIME PO Amiodarone HCl (CORDARONE) 200 MG TID PO Acetaminophen (TYLENOL) 650 MG Q4H PRN PRN PO Tramadol HCl (ULTRAM) 25 MG Q4H PRN PRN PO Tramadol HCl (ULTRAM) 50 MG Q4H PRN PRN PO Insulin Human Regular (HumuLIN R) 100 UNIT ASDIR IV (CKD) Sodium Chloride (SODIUM CHLORIDE 0.9%) 99 ML Lactulose (LACTULOSE) 20 GM ONCE ONE PO (DC) Magnesium Citrate (MAGNESIUM CITRATE) 240 ML ONC E ONE PO (CAN) Amiodarone HCl (CORDARONE) 200 MG TID FEED-TUBE (DC) Aspirin (ASPIRIN) 81 MG DAILY FEED-TUBE (DC) Clopidogrel Bisulfate (Plavix) 75 MG DAILY FEED- TUBE (DC) Cyanocobalamin (Vitamin B-12 500 mcg tab) 500 MC G DAILY FEED-TUBE (DC) Docusate Sodium (DOCUSATE SODIUM) 100 MG BID FEE D-TUBE (DC) Ferrous Sulfate (FERROUS SULFATE) 300 MG DAILY F EED-TUBE (DC) Gabapentin (NEURONTIN) 200 MG BID 9A 5P FEED-TU BE Metolazone (metOLazone) 5 MG DAILY FEED-TUBE (DC ) Metoprolol Tartrate (LOPRESSOR) 12.5 MG Q12HR FE ED-TUBE (DC) Polyethylene Glycol (MIRALAX) 17 GM DAILY FEED-T UBE (DC) Lansoprazole (PREVACID) 30 MG DAILY@0600 FEED-TU BE (DC) Albumin Human (ALBUMINAR 5% 12.5GM/250ML) 250 ML ONCE ONE IV (CAN) Furosemide (LASIX 40 mg/4 mL INJECTION) 60 MG Q8 H IV (CKD) Acetaminophen (TYLENOL) 650 MG Q4H PRN PRN FEED- TUBE (DC) Tramadol HCl (ULTRAM) 25 MG Q4H PRN PRN FEED-TUB E (DC) Tramadol HCl (ULTRAM) 50 MG Q4H PRN PRN FEED-TUB E (DC) Albumin Human (ALBUMINAR 25%) 25 GM Q8H IV Metolazone (metOLazone) 5 MG DAILY PO (DC) Fat Emulsion (FAT EMULSION 20% (INTRALIPID)) 100 ML 2200 IV Furosemide (LASIX 40 mg/4 mL INJECTION) 40 MG Q8 H IV (DC) Insulin Glargine (Lantus/Semglee) 10 UNIT BID [place] BQ (DC) Cyanocobalamin (Vitamin B-12 500 mcg tab) 500 MC G DAILY PO (DC) Ferrous Sulfate (FERROUS SULFATE) 325 MG DAILY P O (DC) Amino Acids/Electrolytes/Dextrose (TPN ADULT- CE NTRAL 1000ML) 840 ML 2200 IV Acetylcysteine (MUCOMYST FOR RT) 200 MG RTQ6H NE B Albuterol/Ipratropium (DUONEB) 3 ML RTQ6H NEB Albumin Human (ALBUMINAR 5% 12.5GM/250ML) 12.5 G M Q12H IV (DC) Bisacodyl (DULCOLAX) 10 MG ONCE PRN RECTAL Insulin Human Lispro (HUMALOG) 0 Q6HR SUBQ (DC) Dextrose/Water (Dextrose 10% 1,000 mL) 1,000 ML ASDIR PRN IV Miscellaneous Information (TPN (Central) PHARMAC Y TO DOSE) 1 EACH ASDIR IV Clopidogrel Bisulfate (Plavix) 75 MG DAILY PO (D C) Polyethylene Glycol (MIRALAX) 17 GM DAILY PO (DC ) Dopamine HCl/Dextrose (DOPamine 400MG/D5W 250ML) 250 ML ASDIR IV Pantoprazole (PROTONIX) 40 MG DAILY@0600 PO (DC) Docusate Sodium (COLACE) 100 MG BID PO (DC) Metoprolol Tartrate (LOPRESSOR) 12.5 MG Q12HR PO (DC) Sennosides (Senna Lax 8.6 MG TABLET) 17.2 MG BE DTIME PO (DC) Milrinone Lactate/Dextrose (MILRINONE 20MG/D5W 1 00ML) 100 ML ASDIR IV ( CKD) Vasopressin (VASOSTRICT 20 Unit/NS 100ML) 100 ML ASDIR IV (CKD) Aspirin (ASPIRIN) 81 MG DAILY PO (DC) Gabapentin (NEURONTIN) 200 MG BID 9A 5P PO (DC) Amiodarone HCl (CORDARONE) 200 MG TID PO (DC) Tramadol HCl (ULTRAM) 25 MG Q4H PRN PRN PO (DC) Tramadol HCl (ULTRAM) 50 MG Q4H PRN PRN PO (DC) Mupirocin (BACTROBAN 2% 22 GM OINTMENT) 1 APPLIC BID NASAL Acetaminophen (TYLENOL) 650 MG Q4H PRN PRN PO (D C) Acetaminophen (TYLENOL) 650 MG Q4H PRN PRN RECTA L Calcium Chloride (CALCIUM CHLORIDE) 1 GM ASDIR P RN IV Dextrose/Water (DEXTROSE 10% IN WATER) 125 ML DIR PRN IV (CKD) Dextrose/Water (DEXTROSE 10% IN WATER) 250 ML DIR PRN IV (CKD) Epinephrine (ADRENALIN CHLORIDE) 5 MG ASDIR IV Dextrose/Water (DEXTROSE 5% WATER) 245 ML Glucagon (GLUCAGON) 1 MG ASDIR PRN IM Magnesium Sulfate (MAGNESIUM SULFATE 4GM/SWFI 10 0ML) 100 ML ASDIR PRN IV Magnesium Sulfate (MAGNESIUM SULFATE 2GM/SWFI 50 ML) 50 ML ASDIR PRN IV Magnesium Sulfate/Dextrose (MAGNESIUM SULFATE 1G M/D5W 100ML) 100 ML ASDIR PRN IV Nitroglycerin/Dextrose (NITROGLYCERIN 50,000MCG/ D5W 250ML) 250 ML ASDIR IV Norepinephrine Bitartrate (NOREPINEPHRINE 8 MG/N S 250 ML) 250 ML TITRATE IV Potassium Chloride (KCL 20MEQ/SWFI 100ML) 100 ML ASDIR PRN IV Sodium Bicarbonate (SODIUM BICARBONATE) 50 MEQ A SDIR PRN IV Sodium Chloride (SODIUM CHLORIDE 0.9%) 1,000 ML .Q20H IV Sodium Chloride (SODIUM CHLORIDE 0.9%) 250 ML Q2 4H IV Atorvastatin Calcium (LIPITOR) 40 MG 2100 PO (DC ) Ceftriaxone Sodium (ROCEPHIN 1000MG VIAL) 1,000 MG Q24H IV (DC) Sodium Chloride (SODIUM CHLORIDE) 10 ML Ondansetron HCl (ZOFRAN) 4 MG Q6H PRN PRN IV Vancomycin HCl (VANCOMYCIN HCL) 1,750 MG PREOP ONCALL IV (CKD) Sodium Chloride (NS 0.9%) 500 ML Physical Exam General appearance: obese, respiratory support ( Hi flow O2), alert, awake Psych: alert, oriented x 3 HEENT: anicteric, mucosal membranes moist Neck: supple, no JVD Cardiovascular: regular rate rhythm, no murmur Respiratory: diminished breath sounds (bases ), on oxygen (Hi flow O2 ) Abdomen: bowel sounds present, non-distended, so ft, non-tender Skin: dry, intact, no rash, incisions D/I Musculoskeletal - general: Musculoskeletal - general: swelling (BLE), movi ng all ext AG 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, 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, normal speech, n o motor deficits, no sensory deficits Results Findings/Data: Laboratory Tests: 12/23 12/23 12/23 12/23 0850 0632 0400 0357 Blood Gas Puncture Site R Radial O2 Saturation (90 - 100 %) 90.0 ABG pH (7.35 - 7.45) 7.313 L ABG pCO2 (35.0 - 45 mmHg) 61.5 *H ABG pO2 (80 - 100.0 mmHg) 65.8 L ABG PO2/FiO2 Ratio (mm/Hg) 90.13 ABG HCO3 (22.0 - 26.0 MMOL/L) 31.2 *H ABG Total CO2 33.1 ABG Base Excess (-4.0 - 4.0 MMOL/L) 5.0 H ABG Hematocrit (33.0 - 45.0 %) 33 ABG Hemoglobin (11.0 - 15.0 G/DL) 11.2 Martin Test Positive Sodium (134 - 147 MEQ/L) 145 Potassium (3.4 - 5.0 MEQ/L) 3.6 Chloride (100 - 108 MEQ/L) 106 Ionized Calcium (1.12 - 1.32 MMOL/L) 1.38 H Lactic Acid (0.9 - 1.7 mmol/l) 0.8 L O2 Delivery Device HFNC FiO2 (%) 73 Chemistry Sodium (134 - 147 mEq/L) 144 Potassium (3.4 - 5.0 mEq/L) 3.9 Chloride (100 - 108 mEq/L) 107 Carbon Dioxide (21 - 33 mEq/l) 28 Anion Gap (0 - 20) 13 BUN (7 - 18 mg/dL) 33 H Creatinine (0.6 - 1.3 mg/dL) 1.1 POC Creatinine (0.6 - 1.0 mg/dL) 1.1 H Glomerular Filtr Rate (70 - 80) 48.0 L Glucose (70 - 110 mg/dL) 222 H POC Glucose (70 - 110 MG/DL) 232 H 213 H POC Glucose (mg/dL) (70 - 110 MG/DL) 234 H Calcium (8.0 - 10.5 mg/dL) 10.5 Magnesium (1.80 - 2.40 mg/dL) 2.42 H Hematology WBC (4.5 - 11.0 x10 3/uL) 6.3 RBC (3.54 - 5.02 x10 6/uL) 2.44 L Hgb (11.0 - 15.0 g/dL) 8.7 L Hct (33.0 - 45.0 %) 27.6 L MCV (81.0 - 99.0 fL) 113.1 H MCH (27.0 - 33.0 pg) 35.7 H MCHC (33.0 - 37.0 g/dL) 31.5 L RDW (11.5 - 14.5 %) 15.9 H Plt Count (150 - 400 x10 3/uL) 92 L MPV (7.0 - 9.0 fL) 11.9 H Neut % (Auto) (56.0 - 77.0 %) 86.0 H Lymph % (Auto) (14.0 - 32.0 %) 3.0 L Barron % (Auto) (4.8 - 9.0 %) 9.2 H Eos % (Auto) (0.3 - 3.7 %) 0.5 Baso % (Auto) (0.0 - 2.0 %) 0.2 Neut # (Auto) (2.0 - 7.6 x10 3/uL) 5.42 Lymph # (Auto) (1.0 - 3.8 x10 3/uL) 0.19 L Barron # (Auto) (0.1 - 0.8 x10 3/uL) 0.58 Eos # (Auto) (0.0 - 0.2 x10 3/uL) 0.03 Baso # (Auto) (0.0 - 0.2 x10 3/uL) 0.01 Abs Immat Gran (auto) (0.00 - 0.03 x10 3/uL) 0. 07 H Add Manual Diff NO Immature Gran % (0.0 - 2.0 %) 1.1 Nucleated RBC % (0 - 0 %) 0.5 H Nucleated RBCs # (Man) (0.0 - 0.1 x10 3/uL) 0.0 3 12/23 12/22 12/22 12/22 12/22 0032 2230 2141 1750 1747 Blood Gas Puncture Site Central Line ABG Hematocrit (33.0 - 45.0 %) 35 ABG Hemoglobin (11.0 - 15.0 G/DL) 11.8 Martin Test N/A VBG pH (7.33 - 7.45) 7.282 L VBG pCO2 (43 - 47 mmHg) 61.7 *H VBG pO2 (10 - 50 mmHG) 37.2 VBG HCO3 (22 - 27 MMOL/L) 29.3 H POC VBG Total CO2 31.2 VBG O2 Saturation (60 - 80 %) 63.2 VBG Base Excess (-4.0 - 4.0 MMOL/L) 2.5 VBG Temperature (F) 98 Sodium (134 - 147 MEQ/L) 142 Potassium (3.4 - 5.0 MEQ/L) 6.2 *H Chloride (100 - 108 MEQ/L) 106 Ionized Calcium (1.12 - 1.32 MMOL/L) 1.35 H Lactic Acid (0.9 - 1.7 mmol/l) 0.7 L O2 Delivery Device BiPAP Vent Mode BIVENT FiO2 (%) 40 Chemistry Sodium (134 - 147 mEq/L) POC Creatinine (0.6 - 1.0 mg/dL) 1.1 H POC Glucose (70 - 110 MG/DL) 222 H 168 H 238 H POC Glucose (mg/dL) (70 - 110 MG/DL) 236 H 12/22 1549 Blood Gas Puncture Site Central Line ABG Hematocrit (33.0 - 45.0 %) 24 L ABG Hemoglobin (11.0 - 15.0 G/DL) 8.1 L Martin Test N/A VBG pH (7.33 - 7.45) 7.226 L VBG pCO2 (43 - 47 mmHg) 74.1 *H VBG pO2 (10 - 50 mmHG) 36.8 VBG HCO3 (22 - 27 MMOL/L) 30.9 H POC VBG Total CO2 33.2 VBG O2 Saturation (60 - 80 %) 58.2 L VBG Base Excess (-4.0 - 4.0 MMOL/L) 3.2 VBG Temperature (F) 98 Sodium (134 - 147 MEQ/L) 143 Potassium (3.4 - 5.0 MEQ/L) 3.6 Chloride (100 - 108 MEQ/L) 103 Ionized Calcium (1.12 - 1.32 MMOL/L) 1.35 H Lactic Acid (0.9 - 1.7 mmol/l) 0.6 L Respiration Rate (/min) 20 O2 Delivery Device Vapotherm FiO2 (%) 60 Tidal Volume (ml) 550 Chemistry POC Creatinine (0.6 - 1.0 mg/dL) 1.2 H POC Glucose (mg/dL) (70 - 110 MG/DL) 371 H Diagnosis, Assessment Plan Free Text A P: Status post CABG x1 Status post MVR Generalized weakness Deconditioning Impaired ADLs, mobility, gait postoperative anemia Morbid obesity CAD HLD Crohn's disease Chronic A. fib Hypoxic respiratory failure Plan: Continue PT/OT Out of bed to chair Work on strength, bed mobility, transfers, gait Increase endurance Fall precautions Monitor p.o. intake and nutrition Strict decubitus precautions Monitor anemia Advance therapies as tolerated Pt currently on TPN On teleflex 60L 70%- wean as tolerated Diuresising increased - monitor strict I Os Monitor patient in CVICU Will eventually need IRF when medically ready. CLOF: Sit to Stand: Maximal Assistance Pivot Transfer: Maximal Assistance Bed to/from chair: Maximal Assistance Activities Performed Cmt: FT TRAINING, BALANCE/C OORDINATION EXERCISES, SAFETY/SELF-CARE EDUCATION Assistive Device Used: Walker, Rolling THROUGHOUT OT SESSION W SUPPLEMENTAL O2 SATURATION GREATER THAN 92%. NEEDS WITHIN REACH, AGREEABLE FOR EXTENDED SITTING IN BEDSIDE CHAIR, TT;36mins, reviewing chart, notes, labs, meds, therapy notes, discussed medical mgt, and rehab poc, goals. Answered all question s Rehab attestation: Face to face exam completed. Treatment plan disc ussed with patient. at 1347 RPT #:[id number] END OF REPORT 2021-12-23 12:09:00-00:00 [facility] Hospitalist Progress Note REPORT#:[id number] REPORT STATUS: Signed DATE:12/23/21 TIME: 1209 PATIENT: SAÚL GILES UNIT #: [id number] ROOM/BED: [place] [id number] : 43 AGE: 76 SEX: F ATTEND: Leah More MD ADM AUTHOR: Meryl Rosa MD * ALL edits or amendments must be made on the [employer]/computer document * Subjective Chief complaint: she is on high flow O2. on TPN acute respiratory failure --post CABG HPI: 76 years old female with PMH of macular degeneration, obesity, obstructive sleep apnea (CPAP at home), former smoker, hypertensio n, hyperlipidemia, diabetes, Crohn's disease, chronic atr ial fibrillation status post 3 ablations in the past (on Xarelto), pacemaker plac ement is admitted to the hospital post cardiac cath . she need CABG . she had sob for years . sob go t worse . she was admitted to the hospital in [place] . she had cath 3 we eks ago . she was reffered to here for stents placement . she had cath yesterd ay . it show multiple vessels CAD . she is recommend CABG . she still feel sob . no cp no nausea no vomiting no fever no abdominal pain no dizziness . Review of Systems Constitutional: Denies: fever, lethargy. Respiratory: Reports: non productive cough, SOB. Denies: whee zing. Cardiovascular: Reports: DOUGLASS (dyspnea on exertion), edema. Denie s: palpitations. GI: Denies: nausea, vomiting. Neuro: Denies: dizziness. Objective General VS/I O: Vital Signs: Date Time Temp Pulse Resp B/P B/P Pulse O2 O2 F low FiO2 Mean Ox Delivery Rate 12/23 0840 74 97 60 12/23 0410 73 18 93 60 70 12/23 0125 72 18 96 60 75 12/22 2200 37.1 12/22 2200 High flow 70 nasal cannula 12/22 1938 71 18 95 60 70 12/22 1938 72 18 60 12/22 193 100 60 12/22 1800 36.3 69 25 145/65 93 100 12/22 1700 36.2 69 25 132/61 88 95 12/22 1600 36.1 75 8 130/60 86 94 12/22 1501 70 94 50 12/22 1500 36.1 69 23 137/61 88 93 12/22 1442 70 16 93 60 72 12/22 1415 36.3 72 12 93 12/22 1400 36.3 72 19 119/58 83 90 12/22 1349 36.4 72 16 92 12/22 1345 36.4 72 19 117/58 82 93 12/22 1330 36.4 72 24 109/55 79 94 12/22 1315 36.5 72 13 129/60 87 93 12/22 1300 36.6 81 33 143/76 102 92 12/22 1245 81 16 94 60 72 12/22 1245 36.6 69 23 137/75 99 93 12/22 1235 36.6 72 20 145/67 96 90 12/22 1230 76 35 12/22 1218 36.6 72 24 128/76 94 91 12/22 1215 36.6 76 25 91 24 hour I O ending at 0700: 12/23 0700 12/22 1900 Intake Total 1960.00 420 Output Total 1060 900 Balance 900.00 -480 Intake, IV 1710.00 Intake, Oral 250 420 Output, Chest 70 Tube Drainage Output, Urine 1060 830 Patient 125.8 kg Weight Weight Bed scale Measurement Method PATIENT WEIGHT: Weight (lb): 277 Weight (oz): 5.46 Weight (kg): 125.800 Medications: Active Meds + DC'd Last 24 Hrs Aspirin (ASPIRIN) 81 MG DAILY PO Clopidogrel Bisulfate (Plavix) 75 MG DAILY PO Cyanocobalamin (Vitamin B-12 500 mcg tab) 500 MC G DAILY PO Ferrous Sulfate (FERROUS SULFATE) 300 MG DAILY P O Metolazone (metOLazone) 5 MG DAILY PO Polyethylene Glycol (MIRALAX) 17 GM DAILY PO Lansoprazole (PREVACID) 30 MG DAILY@0600 PO Amino Acids/Electrolytes/Dextrose (TPN ADULT- CE NTRAL 1000ML) 960 ML 2200 IV Fat Emulsion (FAT EMULSION 20% (INTRALIPID)) 250 ML 2200 IV Atorvastatin Calcium (LIPITOR) 40 MG 2100 FEED-T UBE (DC) Atorvastatin Calcium (LIPITOR) 40 MG 2100 PO Docusate Sodium (DOCUSATE SODIUM) 100 MG BID PO Metoprolol Tartrate (LOPRESSOR) 12.5 MG Q12HR PO Senna (SENOKOT) 17.6 MG BEDTIME FEED-TUBE (DC) Senna (SENOKOT) 17.6 MG BEDTIME PO Amiodarone HCl (CORDARONE) 200 MG TID PO Acetaminophen (TYLENOL) 650 MG Q4H PRN PRN PO Tramadol HCl (ULTRAM) 25 MG Q4H PRN PRN PO Tramadol HCl (ULTRAM) 50 MG Q4H PRN PRN PO Insulin Human Regular (HumuLIN R) 100 UNIT ASDIR IV (CKD) Sodium Chloride (SODIUM CHLORIDE 0.9%) 99 ML Lactulose (LACTULOSE) 20 GM ONCE ONE PO (DC) Magnesium Citrate (MAGNESIUM CITRATE) 240 ML ONC E ONE PO (CAN) Amiodarone HCl (CORDARONE) 200 MG TID FEED-TUBE (DC) Aspirin (ASPIRIN) 81 MG DAILY FEED-TUBE (DC) Clopidogrel Bisulfate (Plavix) 75 MG DAILY FEED- TUBE (DC) Cyanocobalamin (Vitamin B-12 500 mcg tab) 500 MC G DAILY FEED-TUBE (DC) Docusate Sodium (DOCUSATE SODIUM) 100 MG BID FEE D-TUBE (DC) Ferrous Sulfate (FERROUS SULFATE) 300 MG DAILY F EED-TUBE (DC) Gabapentin (NEURONTIN) 200 MG BID 9A 5P FEED-TUB E Metolazone (metOLazone) 5 MG DAILY FEED-TUBE (DC ) Metoprolol Tartrate (LOPRESSOR) 12.5 MG Q12HR FE ED-TUBE (DC) Polyethylene Glycol (MIRALAX) 17 GM DAILY FEED-T UBE (DC) Lansoprazole (PREVACID) 30 MG DAILY@0600 FEED-TU BE (DC) Albumin Human (ALBUMINAR 5% 12.5GM/250ML) 250 ML ONCE ONE IV (CAN) Furosemide (LASIX 40 mg/4 mL INJECTION) 60 MG Q8 H IV (CKD) Acetaminophen (TYLENOL) 650 MG Q4H PRN PRN FEED- TUBE (DC) Tramadol HCl (ULTRAM) 25 MG Q4H PRN PRN FEED-TUB E (DC) Tramadol HCl (ULTRAM) 50 MG Q4H PRN PRN FEED-TUB E (DC) Albumin Human (ALBUMINAR 25%) 25 GM Q8H IV Metolazone (metOLazone) 5 MG DAILY PO (DC) Fat Emulsion (FAT EMULSION 20% (INTRALIPID)) 100 ML 2200 IV Furosemide (LASIX 40 mg/4 mL INJECTION) 40 MG Q 8H IV (DC) Insulin Glargine (Lantus/Semglee) 10 UNIT BID [place] BQ (DC) Cyanocobalamin (Vitamin B-12 500 mcg tab) 500 MC G DAILY PO (DC) Ferrous Sulfate (FERROUS SULFATE) 325 MG DAILY P O (DC) Amino Acids/Electrolytes/Dextrose (TPN ADULT- CE NTRAL 1000ML) 840 ML 2200 IV Acetylcysteine (MUCOMYST FOR RT) 200 MG RTQ6H NE B Albuterol/Ipratropium (DUONEB) 3 ML RTQ6H NEB Albumin Human (ALBUMINAR 5% 12.5GM/250ML) 12.5 G M Q12H IV (DC) Bisacodyl (DULCOLAX) 10 MG ONCE PRN RECTAL Insulin Human Lispro (HUMALOG) 0 Q6HR SUBQ (DC) Dextrose/Water (Dextrose 10% 1,000 mL) 1,000 ML ASDIR PRN IV Miscellaneous Information (TPN (Central) PHARMAC Y TO DOSE) 1 EACH ASDIR IV Clopidogrel Bisulfate (Plavix) 75 MG DAILY PO (D C) Polyethylene Glycol (MIRALAX) 17 GM DAILY PO (DC ) Dopamine HCl/Dextrose (DOPamine 400MG/D5W 250ML) 250 ML ASDIR IV Pantoprazole (PROTONIX) 40 MG DAILY@0600 PO (DC) Docusate Sodium (COLACE) 100 MG BID PO (DC) Metoprolol Tartrate (LOPRESSOR) 12.5 MG Q12HR PO (DC) Sennosides (Senna Lax 8.6 MG TABLET) 17.2 MG BED TIME PO (DC) Milrinone Lactate/Dextrose (MILRINONE 20MG/D5W 1 00ML) 100 ML ASDIR IV ( CKD) Vasopressin (VASOSTRICT 20 Unit/NS 100ML) 100 ML ASDIR IV (CKD) Aspirin (ASPIRIN) 81 MG DAILY PO (DC) Gabapentin (NEURONTIN) 200 MG BID 9A 5P PO (DC) Amiodarone HCl (CORDARONE) 200 MG TID PO (DC) Tramadol HCl (ULTRAM) 25 MG Q4H PRN PRN PO (DC) Tramadol HCl (ULTRAM) 50 MG Q4H PRN PRN PO (DC) Mupirocin (BACTROBAN 2% 22 GM OINTMENT) 1 APPLIC BID NASAL Acetaminophen (TYLENOL) 650 MG Q4H PRN PRN PO (D C) Acetaminophen (TYLENOL) 650 MG Q4H PRN PRN RECTA L Calcium Chloride (CALCIUM CHLORIDE) 1 GM ASDIR P RN IV Dextrose/Water (DEXTROSE 10% IN WATER) 125 ML DIR PRN IV (CKD) Dextrose/Water (DEXTROSE 10% IN WATER) 250 ML DIR PRN IV (CKD) Epinephrine (ADRENALIN CHLORIDE) 5 MG ASDIR IV Dextrose/Water (DEXTROSE 5% WATER) 245 ML Glucagon (GLUCAGON) 1 MG ASDIR PRN IM Magnesium Sulfate (MAGNESIUM SULFATE 4GM/SWFI 10 0ML) 100 ML ASDIR PRN IV Magnesium Sulfate (MAGNESIUM SULFATE 2GM/SWFI 50 ML) 50 ML ASDIR PRN IV Magnesium Sulfate/Dextrose (MAGNESIUM SULFATE 1G M/D5W 100ML) 100 ML ASDIR PRN IV Nitroglycerin/Dextrose (NITROGLYCERIN 50,000MCG/ D5W 250ML) 250 ML ASDIR IV Norepinephrine Bitartrate (NOREPINEPHRINE 8 MG/N S 250 ML) 250 ML TITRATE IV Potassium Chloride (KCL 20MEQ/SWFI 100ML) 100 ML ASDIR PRN IV Sodium Bicarbonate (SODIUM BICARBONATE) 50 MEQ A SDIR PRN IV Sodium Chloride (SODIUM CHLORIDE 0.9%) 1,000 ML .Q20H IV Sodium Chloride (SODIUM CHLORIDE 0.9%) 250 ML Q2 4H IV Atorvastatin Calcium (LIPITOR) 40 MG 2100 PO (DC ) Ceftriaxone Sodium (ROCEPHIN 1000MG VIAL) 1,000 MG Q24H IV (DC) Sodium Chloride (SODIUM CHLORIDE) 10 ML Ondansetron HCl (ZOFRAN) 4 MG Q6H PRN PRN IV Vancomycin HCl (VANCOMYCIN HCL) 1,750 MG PREOP O NCALL IV (CKD) Sodium Chloride (NS 0.9%) 500 ML Physical Exam General appearance: alert, awake, oriented Head/Eyes: atraumatic, normal conjunctiva/sclera , normal eyelids/periorb., normocephalic ENT: intubated Neck: full range of motion, non-tender, no JVD Cardiovascular: normal heart sounds, regular rat e rhythm Respiratory: dyspneic, hypercapnia, hypoxia, on oxygen, clear to auscultation Abdomen: non-tender, normal bowel sounds, soft, no distention Extremities: moves all, no calf tenderness, no e ana 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 Skin: dry, intact Results Findings/Data: Laboratory Tests 12/23 12/22 12/22 0357 1750 1549 Blood Gas Puncture Site R Radial Central Line Central Li ne O2 Saturation (90 - 100 %) 90.0 ABG pH (7.35 - 7.45) 7.313 L ABG pCO2 (35.0 - 45 mmHg) 61.5 *H ABG pO2 (80 - 100.0 mmHg) 65.8 L ABG PO2/FiO2 Ratio (mm/Hg) 90.13 ABG HCO3 (22.0 - 26.0 MMOL/L) 31.2 *H ABG Total CO2 33.1 ABG Base Excess (-4.0 - 4.0 MMOL/L) 5.0 H ABG Hematocrit (33.0 - 45.0 %) 33 35 24 L ABG Hemoglobin (11.0 - 15.0 G/DL) 11.2 11.8 8.1 L Martin Test Positive N/A N/A VBG pH (7.33 - 7.45) 7.282 L 7.226 L VBG pCO2 (43 - 47 mmHg) 61.7 *H 74.1 *H VBG pO2 (10 - 50 mmHG) 37.2 36.8 VBG HCO3 (22 - 27 MMOL/L) 29.3 H 30.9 H POC VBG Total CO2 31.2 33.2 VBG O2 Saturation (60 - 80 %) 63.2 58.2 L VBG Base Excess (-4.0 - 4.0 MMOL/L) 2.5 3.2 VBG Temperature (F) 98 98 Sodium (134 - 147 MEQ/L) 145 142 143 Potassium (3.4 - 5.0 MEQ/L) 3.6 6.2 *H 3.6 Chloride (100 - 108 MEQ/L) 106 106 103 Ionized Calcium (1.12 - 1.32 MMOL/L) 1.38 H 1.3 5 H 1.35 H Lactic Acid (0.9 - 1.7 mmol/l) 0.8 L 0.7 L 0.6 L Respiration Rate (/min) 20 O2 Delivery Device HFNC BiPAP Vapotherm Vent Mode BIVENT FiO2 (%) 73 40 60 Tidal Volume (ml) 550 Laboratory Tests 12/23 12/23 12/23 12/23 12/23 0850 0632 0400 0357 0032 Chemistry Sodium (134 - 147 mEq/L) 144 Potassium (3.4 - 5.0 mEq/L) 3.9 Chloride (100 - 108 mEq/L) 107 Carbon Dioxide (21 - 33 mEq/l) 28 Anion Gap (0 - 20) 13 BUN (7 - 18 mg/dL) 33 H Creatinine (0.6 - 1.3 mg/dL) 1.1 POC Creatinine (0.6 - 1.0 mg/dL) 1.1 H Glomerular Filtr Rate (70 - 80) 48.0 L Glucose (70 - 110 mg/dL) 222 H POC Glucose (70 - 110 MG/DL) 232 H 213 H 222 H POC Glucose (mg/dL) (70 - 110 MG/DL) 234 H Calcium (8.0 - 10.5 mg/dL) 10.5 Magnesium (1.80 - 2.40 mg/dL) 2.42 H 12/22 12/22 12/22 12/22 12/22 2230 2141 1750 1747 1549 Chemistry Sodium (134 - 147 mEq/L) POC Creatinine (0.6 - 1.0 mg/dL) 1.1 H 1.2 H POC Glucose (70 - 110 MG/DL) 168 H 238 H POC Glucose (mg/dL) (70 - 110 MG/DL) 236 H 371 H Laboratory Tests 12/23 0400 Hematology WBC (4.5 - 11.0 x10 3/uL) 6.3 RBC (3.54 - 5.02 x10 6/uL) 2.44 L Hgb (11.0 - 15.0 g/dL) 8.7 L Hct (33.0 - 45.0 %) 27.6 L MCV (81.0 - 99.0 fL) 113.1 H MCH (27.0 - 33.0 pg) 35.7 H MCHC (33.0 - 37.0 g/dL) 31.5 L RDW (11.5 - 14.5 %) 15.9 H Plt Count (150 - 400 x10 3/uL) 92 L MPV (7.0 - 9.0 fL) 11.9 H Neut % (Auto) (56.0 - 77.0 %) 86.0 H Lymph % (Auto) (14.0 - 32.0 %) 3.0 L Barron % (Auto) (4.8 - 9.0 %) 9.2 H Eos % (Auto) (0.3 - 3.7 %) 0.5 Baso % (Auto) (0.0 - 2.0 %) 0.2 Neut # (Auto) (2.0 - 7.6 x10 3/uL) 5.42 Lymph # (Auto) (1.0 - 3.8 x10 3/uL) 0.19 L Barron # (Auto) (0.1 - 0.8 x10 3/uL) 0.58 Eos # (Auto) (0.0 - 0.2 x10 3/uL) 0.03 Baso # (Auto) (0.0 - 0.2 x10 3/uL) 0.01 Abs Immat Gran (auto) (0.00 - 0.03 x10 3/uL) 0. 07 H Add Manual Diff NO Immature Gran % (0.0 - 2.0 %) 1.1 Nucleated RBC % (0 - 0 %) 0.5 H Nucleated RBCs # (Man) (0.0 - 0.1 x10 3/uL) 0. 03 Radiology data: Recent Impressions: RADIOLOGY - XR ABDOMEN 1V (KUB) 12/22 2133 Report Impression - Status: SIGNED Entered: 12/22/2021 2155 IMPRESSION: Nonspecific lower abdomen small bowel distention . If symptoms persist or worsen, follow-up imaging may be perf ormed to better assess for small bowel obstruction Impression By: [email or web address] - Anoop Lilly M.D. RADIOLOGY - XR ABDOMEN 1V (KUB) 12/23 0055 Report Impression - Status: SIGNED Entered: 12/23/2021 0122 IMPRESSION: 1. A nasogastric tube terminates overlying the s tomach. 2. Dilated small bowel loops in the left lower q uadrant. Impression By: [email or web address] - Sanchez Mendiola M.D RADIOLOGY - XR CHEST 1 V 12/23 0655 Report Impression - Status: SIGNED Entered: 12/23/2021 0807 IMPRESSION: Stable postoperative chest, followin g removal of bilateral chest tubes. Impression By: [email or web address] - Enrico Kelley Treatment Prophylaxis Treatment Prophylaxis Drain(s)/tube(s): Drain(s)/tube(s): chest (x3) Diagnosis, Assessment Plan Consultants: cardiology, cardiovascular surgery Free Text DxA P Notes Free text DxA P notes: 76 years old female with PMH of macular degeneration, obesity, obstructive sleep apnea (CPAP at home), former smoker, hypertensio n, hyperlipidemia, diabetes, Crohn's disease, chronic atr ial fibrillation status post 3 ablations in the past (on Xarelto), pacemaker placement CAD -- multiple vesssels HTN DM HLD Crohn's disease chronic atrial fibrillation status post 3 ablati ons macular degeneration obesity obstructive sleep apnea acute respiratory failure --post surgery severe mitral valve regurgitation constrictive pericarditis CAD -- cardiology consult CV surgeon consult CABG -- AM ASA/lipitor afib -- rate control -- hold xarelto for surgery HTN-- continue home med DM-- on lantus -- sliding scale HLD-- on lipitor RONA--cpap as need DVTP -- heparin 12/18- feel sob -- CABG -- afternoon 12/19--post MVR (31 Magna valve), CABG x 1 (ROBERTS- LAD), ILAA and pericardectomy -- she remain intubated on the vent -- chest tube are in place -on levophed and epinephrine drip -- monitor in CCU 12/20- she was extubated --on bipap now -- NPO --off Levophed/epinephrine, continue vasopressi n, inotropes with milrinone, -- chest tube remain in place -- she is stable post surgery 12/21-- she is on high flow O2 -- edema --lasix --chest tube in place --- she is hemodynamic stable -- continue monitor in CCU 12/22- she remain on high O2 CXR show worsening pulmonary venous vascular co ngestion. --lasix iv tid -- chest tube are out -- off drips -- NPO -- start TPN -- continue monitor in CCU 12/23- she remain on high flow O2 --less edema -- on TPN -- she is hemodynamic stable -- continue monitor in CVICU review all image and consultants notes Current Medications Sig/Fabby Start time Last Medication Dose Route Stop Time Status Admin Amlodipine Besylate 5 MG DAILY 12/18 899 AC PO 01/17 859 Furosemide 10 MG DAILY 12/18 899 AC PO 01/17 859 Lisinopril 40 MG DAILY 12/18 899 AC PO 01/16 1214 Losartan Potassium 100 MG DAILY 12/18 899 AC PO 01/17 08 Metolazone 10 MG DAILY 12/18 899 AC PO 01/17 0859 Pantoprazole 40 MG DAILY@0600 12/18 599 AC PO 01/17 559 Cefazolin Sodium 3 GM PREOP ONCALL 12/18 499 C KD Sodium Chloride 250 ML IV 12/18 2358 Metoprolol Tartrate 6.25 MG ONCE ONE 12/18 499 AC PO 12/18 050 Vancomycin HCl 1,750 MG PREOP ONCALL 12/18 499 DC Sodium Chloride 500 ML IV 12/18 2358 Vancomycin HCl 1,750 MG PREOP ONCALL 10/06 0500 CKD Sodium Chloride 500 ML IV 12/25 0459 Verapamil HCl 16.6 MG .Q24H ONE 12/18 0500 CKD Heparin Sodium 1,660 UNIT IV 12/19 0459 (Porcine) Sodium Bicarbonate 0.7 ML Nitroglycerin/ 8.3 MG Dextrose Lactated Ringer's 949.5 ML Clonidine HCl 0.3 MG BID 12/17 2099 AC PO 01/16 2059 Doxazosin Mesylate 4 MG BEDTIME 12/17 2099 AC PO 01/16 2059 Insulin Glargine 50 UNIT BID 12/17 2099 AC SUBQ 01/16 2059 Insulin Human Lispro 0 AC HS 12/17 2099 AC SUBQ 01/16 2059 Pravastatin Sodium 10 MG 2100 12/17 2099 AC PO 01/16 2059 Dextrose/Water 125 ML ASDIR PRN 12/17 1800 CKD IV 01/16 175 Dextrose/Water 250 ML ASDIR PRN 12/17 1800 CKD IV 01/16 175 Glucagon 1 MG ASDIR PRN 12/17 1800 AC IM 01/16 175 Atropine Sulfate 0.5 MG ASDIR PRN 12/17 1200 AC IV 12/18 1158 Sodium Chloride 1,000 ML .[id number] 12/17 1200 AC 12/17 IV 12/17 1839 1404 Sodium Chloride 500 ML ASDIR PRN 12/17 1200 AC IV 12/18 1158 Adenosine 0 .STK-MED ONE 12/17 1052 DC IV Sodium Chloride 50 ML .STK-MED ONE 12/17 1052 D C IV Iopamidol 100 ML .STK-MED ONE 12/17 1034 DC IV 12/17 1035 1034 Fentanyl Citrate 0 .STK-MED ONE 12/17 1019 DC 12/17 .ROUTE 1030 Midazolam HCl 0 .STK-MED ONE 12/17 1019 DC 10/0 5 .ROUTE 1030 Heparin Sodium/ 500 ML .STK-MED ONE 12/17 0949 DC 12/17 Sodium Chloride IV 1030 Heparin Sodium 0 .STK-MED ONE 12/18 939 DC .ROUTE 1030 Heparin Sodium/ 1,000 ML .STK-MED ONE 12/17 094 0 DC 12/17 Sodium Chloride IV 1030 Heparin Sodium/ 500 ML .STK-MED ONE 12/18 939 DC 12/17 Sodium Chloride IV 1030 Lidocaine HCl 0 .STK-MED ONE 12/18 939 DC 10/ 5 .ROUTE 1030 Nitroglycerin/ 250 ML .[facility] 12/18 939 D C 12/17 Dextrose IV 1030 Verapamil HCl 0 .[facility] 12/18 939 DC 5 IV 1030 Home Medications: RIVAROXABAN (XARELTO) 20 MG PO DAILY amLODIPine (NORVASC) 5 MG PO DAILY cloNIDine (CATAPRES) 0.3 MG PO BID DOXAZOSIN (CARDURA) LISINOPRIL (ZESTRIL) OLMESARTAN (BENICAR) 40 MG PO DAILY PRAVASTATIN (PRAVACHOL) FUROSEMIDE (LASIX) 10 MG PO DAILY METOLAZONE (ZAROXOLYN) 10 MG PO DAILY POTASSIUM CHLORIDE ER (MICRO-K) 10 MEQ PO DAILY OMEPRAZOLE ER 20 MG PO DAILY GLIMEPIRIDE (AMARYL) 4 MG PO DAILY INSULIN DETEMIR (LEVEMIR FlexTouch (15mL)) 50 UN ITS SUBQ BID INSULIN LISPRO (HumaLOG CARTRIDGE (15mL)) 0 UNIT S SUBQ TID LIRAGLUTIDE (VICTOZA (6mL)) 1.8 MG SUBQ DAILY metFORMIN (GLUCOPHAGE) 1,000 MG PO BID ADALIMUMAB + SUPPLIES (HUMIRA PREFILLED PEN) 40 MG SUBQ Q14D azaTHIOprine (IMURAN) 50 MG PO DAILY Quality: Gen Med Crit Care Current Medications Current medication review: Home Medications: RIVAROXABAN (XARELTO) 20 MG PO DAILY amLODIPine (NORVASC) 5 MG PO DAILY cloNIDine (CATAPRES) 0.3 MG PO BID DOXAZOSIN (CARDURA) LISINOPRIL (ZESTRIL) OLMESARTAN (BENICAR) 40 MG PO DAILY PRAVASTATIN (PRAVACHOL) FUROSEMIDE (LASIX) 10 MG PO DAILY METOLAZONE (ZAROXOLYN) 10 MG PO DAILY POTASSIUM CHLORIDE ER (MICRO-K) 10 MEQ PO DAILY OMEPRAZOLE ER 20 MG PO DAILY GLIMEPIRIDE (AMARYL) 4 MG PO DAILY INSULIN DETEMIR (LEVEMIR FlexTouch (15mL)) 50 UN ITS SUBQ BID INSULIN LISPRO (HumaLOG CARTRIDGE (15mL)) 0 UNIT S SUBQ TID LIRAGLUTIDE (VICTOZA (6mL)) 1.8 MG SUBQ DAILY metFORMIN (GLUCOPHAGE) 1,000 MG PO BID ADALIMUMAB + SUPPLIES (HUMIRA PREFILLED PEN) 40 MG SUBQ Q14D azaTHIOprine (IMURAN) 50 MG PO DAILY I attest that the foregoing medication list in t he medical record is true, accurate, and complete to the best of my knowled ge. Electronically Signed by Meryl Rosa MD on 2 at 1745 RPT #:[id number] END OF REPORT 2021-12-23 11:18:00-00:00 [facility] REPORT#:[id number] REPORT STATUS: Signed DATE:12/23/21 TIME: 1118 PATIENT: SAÚL GILES UNIT #: [id number] ROOM/BED: [place] [id number] : 43 AGE: 76 SEX: F ATTEND: Leah More MD ADM AUTHOR: Vanessa Morales [facility] * ALL edits or amendments must be made on the [facility]/computer document * Nutrition Support Nutrition Support Dietitian nutrition assessment The data set between the solid lines has been im ported from the dietitian's assessment. BMI Calculated: 47.6 Nutrition related diagnosis: Morbid obesity Nutrition diagnosis details: BMI 40 or more Nutrition problem: Increased nutrient needs Nutrition etiology: Chronic disease Nutrition signs and symptoms: S/P CABG Nutrition prescription: 1. RECOMMEND 1800 ADA DI ABETIC DIET. 2. PROVIDE GLUCERNA TID WITH MEALS. 3. CONTINUE CURRENT TPN ORDER TO SUPPLEMENT MEALS UNTIL PO INTAKE >50% AT MEALS. 4. MONITOR PO, WT, LABS , BM. Dietitian name: Serenity Garner, DIET Assessment completed: 12/22/21 Medication therapy: adult PN Indication for treatment: Alberto using an "X" for all appropriate indicatio ns: Evidence of PCM and enteral nutrition (EN) not feasible Malnourished surgical patient able to have PN 5 -7 days preoperatively and EN not feasible PN for anticipated need of >5-7 days and EN not feasible X Supplemental PN if unable to meet EN goal with in 7-10 days Other: Current therapy: Adult Parenteral Nutrition Custom Formulation fo r [employer] plus Lipids Day of therapy: Day 3 Weight: Actual weight (kg): 125.8 Vital signs/I O: 24 hour I O ending at 0700: 12/23 0700 12/22 1900 Intake Total 1960.00 420 Output Total 1060 900 Balance 900.00 -480 Intake, IV 1710.00 Intake, Oral 250 420 Output, Chest 70 Tube Drainage Output, Urine 1060 830 Patient 125.8 kg Weight Weight Bed scale Measurement Method Vital Signs: Date Time Temp Pulse Resp B/P B/P Pulse O2 O2 Flow FiO2 Mean Ox Delivery Rate 12/23 0410 73 18 93 60 70 12/23 0125 72 18 96 60 75 12/22 2200 37.1 12/22 2200 High flow 70 nasal cannula 12/22 1938 71 18 95 60 70 12/22 193 72 18 60 12/22 193 100 60 12/22 1800 36.3 69 25 145/65 93 100 12/22 1700 36.2 69 25 132/61 88 95 12/22 1600 36.1 75 8 130/60 86 94 12/22 1501 70 94 50 12/22 1500 36.1 69 23 137/61 88 93 12/22 1442 70 16 93 60 72 12/22 1415 36.3 72 12 93 12/22 1400 36.3 72 19 119/58 83 90 12/22 1349 36.4 72 16 92 12/22 1345 36.4 72 19 117/58 82 93 12/22 1330 36.4 72 24 109/55 79 94 12/22 1315 36.5 72 13 129/60 87 93 12/22 1300 36.6 81 33 143/76 102 92 12/22 1245 81 16 94 60 72 12/22 1245 36.6 69 23 137/75 99 93 12/22 1235 36.6 72 20 145/67 96 90 12/22 1230 76 35 12/22 1218 36.6 72 24 128/76 94 91 12/22 1215 36.6 76 25 91 12/22 1201 36.6 46 22 149/117 130 91 12/22 1200 36.6 41 24 91 12/22 1145 36.5 69 22 141/84 106 93 12/22 1130 36.5 72 26 125/64 87 91 Labs: Laboratory Tests 12/23 12/22 12/22 12/21 12/20 0400 2230 0430 0214 2120 Chemistry Sodium (134 - 147 mEq/L) 144 143 145 145 Potassium (3.4 - 5.0 mEq/L) 3.9 4.0 4.3 4.4 Chloride (100 - 108 mEq/L) 107 106 107 108 Carbon Dioxide (21 - 33 mEq/l) 28 27 26 27 BUN (7 - 18 mg/dL) 33 H 33 H 30 H 29 H Creatinine (0.6 - 1.3 mg/dL) 1.1 1.3 1.6 H 1.8 H Glucose (70 - 110 mg/dL) 222 H 219 H 117 H 130 H 12/20 1155 Chemistry Sodium (134 - 147 mEq/L) 144 Potassium (3.4 - 5.0 mEq/L) 4.6 Chloride (100 - 108 mEq/L) 109 H Carbon Dioxide (21 - 33 mEq/l) 27 BUN (7 - 18 mg/dL) 26 H Creatinine (0.6 - 1.3 mg/dL) 1.7 H Glucose (70 - 110 mg/dL) 182 H Laboratory Tests Test Result Date Time Chemistry Calcium (8.0 - 10.5 mg/dL) 10.12/23 0400 Phosphorus (2.5 - 4.9 MG/DL) 3.4 12/22 0430 Magnesium (1.80 - 2.40 mg/dL) 2.42 H 12/23 040 0 Albumin (3.4 - 5.0 g/dL) 4.30 12/22 0430 Triglycerides: Test Result Date Time Chemistry Triglycerides (40 - 150 mg/dL) 67 12/18 0310 Laboratory Tests 12/23 12/23 12/23 12/23 12/22 0850 0632 0357 0032 2141 Chemistry POC Glucose (70 - 110 MG/DL) 232 H 213 H 222 H 168 H POC Glucose (mg/dL) (70 - 110 MG/DL) 234 H 12/22 12/22 12/22 12/22 1750 1747 1549 1126 Chemistry POC Glucose (70 - 110 MG/DL) 238 H 258 H POC Glucose (mg/dL) (70 - 110 MG/DL) 236 H 371 H Diet: regular Calorie needs: 5214-7656 kcal/day (30-35 kcal/kg/day) per dieti cande assessment on 12/22 Protein needs: 90-120 g/day per assembler gold frame assessment on 12/22 IV access: Right IJ CVC Treatment plan: consult, change regimen Regimen: CAPS Custom Formulation Rate: 40 mL/hr (960 mL/day) Total kcal: 1580 kcal/day ( 88% of daily kcal go al) Amino acids 100 g/day (100% of daily protein goa l) Dextrose 200 g/day Lipids 50 g/day Sodium chloride 30 mEq/day Sodium acetate 30 mEq/day Magnesium sulfate mEq/day Calcium gluconate mEq/day Potassium chloride 20 mEq/day Potassium acetate mEq/day Potassium phosphate mmol/day Sodium phosphate -- mmol/day MVI 10 mL daily Trace elements 1 mL daily Insulin, regular -- units Orders outside of TPN: Furosemide 60 mg IV q8h Insulin drip Ondansetron 4 mg IV q6h PRN (last administered at 2143) Pantoprazole 40 mg PO daily 12/22: Magnesium sulfate 1g IV x1 12/22: Potassium chloride 20 mEq IV x1 Rationale: HPI: This 76-year-old female , from [facility], with past medical history of macular degeneration, obe sity, obstructive sleep apnea (CPAP at home), former smoker, hypertension, hyperl ipidemia, diabetes, Crohn's disease, chronic atrial fibrillation (status post 3 ablations in the past and on Xarelto), and pacemaker placement who had a recent admission to the hosp ital with heart failure symptoms. She has been admitted to the hospital for elective heart cath. Coronary angiogram showed severe multivessel cor onary artery disease not suitable for percutaneous intervention. The patient is now status post CABG x1 and MVR on 12/[address] Romero. Due to the pa harveynt s dependence on BiPAP postoperatively, Dr. Romero would like to initiate TPN to meet this patient s nutritional needs. Pharmacy has been consulted for the dosing and monitoring of TPN. 12/23 Assessment and Plan Patient with a regular diet, but she developed nausea overnight. A KUB showed a nonobstructive gas pattern. An NG tube was inserted, however, the patient self- removed this overnight. Per discussion on rounds , Dr. Romero would like to continue TPN at this time. Macronutrients: Will increase the rate of TPN to 40 mL/hr to accommodate the increased volume from advancing amino acids and dextrose. Will increase amino acids and dextrose to 100 g/day and 200 g/day, r espectively. Will increase lipids to 50 g/day. This shiva l provide 1580 kcal/day. (100% of daily protein goal and 88% of daily kcal goal) . Will advance TPN in the coming days as tolerated. Triglycerides 67 on 12/18; monitor at least week ly while on TPN. Electrolytes: Magnesium slightly elevated at 2.4 2 this morning. All other electrolytes are within normal limits. Will add a small amount of potassium chloride to TPN. Electrolytes in TPN as outlined above. Supplement additional electrolytes outside of TPN as indicated. Renal I/O: BUN/SCr 33/1.1 (BUN stable from yeste rday, SCr now trending down). Urine output with 1890 mL and chest tube output with 70 mL documented over the past 24 hours. Will concentrate TPN as much as p ossible given recent cardiovascular surgery and n eed for frequent diuresis. The patient will receive 960 mL/day of fluids from TPN and 250 mL/day fro m lipids. Hepatic: Tbili 0.50, AST/ALT 22/13, Alk phos 57, and albumin 4.30 on 12/22; monitor at least weekly while on TPN Glycemic Control: Serum bloo d glucose was 222 mg/dL this morning. [id number] glucose has ranged 168-371 mg/dL over the past 2 4 hours. 28 units of sliding scale insulin administered over the past 24 hour s. Per discussion on rounds, will transition the patient to an insuli n drip. Will not add insulin to TPN at this time. at 1121 RPT #:[id number] END OF REPORT 2021-12-23 09:04:00-00:00 HCAC[facility] Cardiothoracic Surgery Prog REPORT#:[id number] REPORT STATUS: Signed DATE:12/23/21 TIME: 903 PATIENT: SAÚL GILES UNIT #: [id number] ROOM/BED: [place] [address] : 43 AGE: 76 SEX: F ATTEND: Leah More MD ADM AUTHOR: René Romero MD * ALL edits or amendments must be made on the [employer]/computer document * General Post-op: day 4 Status post: 1. Mitral valve replacement (31 Magna valve). 2. Coronary artery bypass graft surgery x1 (GOMES A to LAD). 3. Isolation of left atrial appendage. 4. Pericardiectomy. Subjective Chief complaint: Shortness of breath Review of Systems Constitutional: Denies: fever, malaise. Allergy/Immun: Denies: allergic reaction. ENT: Denies: sore throat. Respiratory: Denies: SOB. GI: Denies: abdominal pain. Heme: Denies: bleeding. Neuro: Denies: focal weakness, headache. All systems rev neg: except as marked Objective General VS/I O Last Documented: Result Date Time Pulse Ox 93 12/23 0410 FiO2 70 12/23 0410 O2 Flow Rate 60 12/23 0410 Pulse 73 12/23 0410 Resp 18 12/23 0410 Temp 37.1 12/22 2200 O2 Delivery High flow nasal cannula 12/22 2200 B/P 145/65 12/22 1800 B/P Mean 93 12/22 1800 24 hour I O ending at 0700: 12/23 0700 12/22 1900 Intake Total 1960.00 420 Output Total 1060 900 Balance 900.00 -480 Intake, IV 1710.00 Intake, Oral 250 420 Output, Chest 70 Tube Drainage Output, Urine 1060 830 Patient 125.8 kg Weight Weight Bed scale Measurement Method PATIENT WEIGHT: Weight (lb): 277 Weight (oz): 5.46 Weight (kg): 125.800 Dietitian Nutrition assessment The data set between the solid lines has been im ported from the dietitian's assessment. BMI Calculated: 47.6 Nutrition related diagnosis: Morbid obesity Nutrition diagnosis details: BMI 40 or more Nutrition problem: Increased nutrient needs Nutrition etiology: Chronic disease Nutrition signs and symptoms: S/P CABG Nutrition prescription: 1. RECOMMEND 1800 ADA DI ABETIC DIET. 2. PROVIDE GLUCERNA TID WITH MEALS. 3. CONTINUE CURRENT TPN ORDER TO SUPPLEMENT MEALS UNTIL PO INTAKE >50% AT MEALS. 4. MONITOR PO, WT, LABS , BM. Dietitian name: Serenityharriet Garner, DIET Assessment completed: 12/22/21 Physical Exam General appearance: alert, awake, oriented Wound/incision: Location: sternal Site condition: dressing clean dry, dressing in tact HEENT: anicteric Neck: supple/no meningismus Cardiovascular: normal heart sounds, regular rat e rhythm Respiratory: aerating well, symmetric expansion, no distress Abdomen: soft, non-tender Extremities: moves all 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, 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, normal speech Skin: dry, intact, normal temperature Psychiatry: normal affect, normal mood Current Medications Medications: Active Meds + DC'd Last 24 Hrs Atorvastatin Calcium (LIPITOR) 40 MG 2100 FEED-T UBE Senna (SENOKOT) 17.6 MG BEDTIME FEED-TUBE Amiodarone HCl (CORDARONE) 200 MG TID FEED-TUBE Aspirin (ASPIRIN) 81 MG DAILY FEED-TUBE Clopidogrel Bisulfate (Plavix) 75 MG DAILY FEED- TUBE Cyanocobalamin (Vitamin B-12 500 mcg tab) 500 MC G DAILY FEED-TUBE Docusate Sodium (DOCUSATE SODIUM) 100 MG BID FEE D-TUBE Ferrous Sulfate (FERROUS SULFATE) 300 MG DAILY F EED-TUBE Gabapentin (NEURONTIN) 200 MG BID 9A 5P FEED-TUB E Metolazone (metOLazone) 5 MG DAILY FEED-TUBE Metoprolol Tartrate (LOPRESSOR) 12.5 MG Q12HR FE ED-TUBE Polyethylene Glycol (MIRALAX) 17 GM DAILY FEED-T UBE Lansoprazole (PREVACID) 30 MG DAILY@0600 FEED-TU BE Albumin Human (ALBUMINAR 5% 12.5GM/250ML) 250 ML ONCE ONE IV (CAN) Furosemide (LASIX 40 mg/4 mL INJECTION) 60 MG Q8 H IV (CKD) Acetaminophen (TYLENOL) 650 MG Q4H PRN PRN FEED -TUBE Tramadol HCl (ULTRAM) 25 MG Q4H PRN PRN FEED-TUB E Tramadol HCl (ULTRAM) 50 MG Q4H PRN PRN FEED-TUB E Albumin Human (ALBUMINAR 25%) 25 GM Q8H IV Metolazone (metOLazone) 5 MG DAILY PO (DC) Fat Emulsion (FAT EMULSION 20% (INTRALIPID)) 100 ML 2200 IV Furosemide (LASIX 40 mg/4 mL INJECTION) 40 MG Q8 H IV (DC) Insulin Glargine (Lantus/Semglee) 10 UNIT BID [place] BQ Cyanocobalamin (Vitamin B-12 500 mcg tab) 500 MC G DAILY PO (DC) Ferrous Sulfate (FERROUS SULFATE) 325 MG DAILY P O (DC) Amino Acids/Electrolytes/Dextrose (TPN ADULT- CE NTRAL 1000ML) 840 ML 2200 IV Acetylcysteine (MUCOMYST FOR RT) 200 MG RTQ6H NE B Albuterol/Ipratropium (DUONEB) 3 ML RTQ6H NEB Albumin Human (ALBUMINAR 5% 12.5GM/250ML) 12.5 G M Q12H IV (DC) Furosemide (LASIX 40 mg/4 mL INJECTION) 40 MG Q1 2H IV (DC) Bisacodyl (DULCOLAX) 10 MG ONCE PRN RECTAL Insulin Human Lispro (HUMALOG) 0 Q6HR SUBQ Dextrose/Water (Dextrose 10% 1,000 mL) 1,000 ML ASDIR PRN IV Miscellaneous Information (TPN (Central) PHARMAC Y TO DOSE) 1 EACH ASDIR IV Clopidogrel Bisulfate (Plavix) 75 MG DAILY PO (D C) Polyethylene Glycol (MIRALAX) 17 GM DAILY PO (DC ) Dopamine HCl/Dextrose (DOPamine 400MG/D5W 250ML) 250 ML ASDIR IV Pantoprazole (PROTONIX) 40 MG DAILY@0600 PO (DC) Docusate Sodium (COLACE) 100 MG BID PO (DC) Metoprolol Tartrate (LOPRESSOR) 12.5 MG Q12HR PO (DC) Sennosides (Senna Lax 8.6 MG TABLET) 17.2 MG BED TIME PO (DC) Milrinone Lactate/Dextrose (MILRINONE 20MG/D5W 1 00ML) 100 ML ASDIR IV ( CKD) Vasopressin (VASOSTRICT 20 Unit/NS 100ML) 100 ML ASDIR IV (CKD) Aspirin (ASPIRIN) 81 MG DAILY PO (DC) Gabapentin (NEURONTIN) 200 MG BID 9A 5P PO (DC) Amiodarone HCl (CORDARONE) 200 MG TID PO (DC) Tramadol HCl (ULTRAM) 25 MG Q4H PRN PRN PO (DC) Tramadol HCl (ULTRAM) 50 MG Q4H PRN PRN PO (DC) Mupirocin (BACTROBAN 2% 22 GM OINTMENT) 1 APPLIC BID NASAL Acetaminophen (TYLENOL) 650 MG Q4H PRN PRN PO (D C) Acetaminophen (TYLENOL) 650 MG Q4H PRN PRN RECTA L Calcium Chloride (CALCIUM CHLORIDE) 1 GM ASDIR P RN IV Dextrose/Water (DEXTROSE 10% IN WATER) 125 ML A SDIR PRN IV (CKD) Dextrose/Water (DEXTROSE 10% IN WATER) 250 ML DIR PRN IV (CKD) Epinephrine (ADRENALIN CHLORIDE) 5 MG ASDIR IV Dextrose/Water (DEXTROSE 5% WATER) 245 ML Glucagon (GLUCAGON) 1 MG ASDIR PRN IM Magnesium Sulfate (MAGNESIUM SULFATE 4GM/SWFI 10 0ML) 100 ML ASDIR PRN IV Magnesium Sulfate (MAGNESIUM SULFATE 2GM/SWFI 50 ML) 50 ML ASDIR PRN IV Magnesium Sulfate/Dextrose (MAGNESIUM SULFATE 1G M/D5W 100ML) 100 ML ASDIR PRN IV Nitroglycerin/Dextrose (NITROGLYCERIN 50,000MCG/ D5W 250ML) 250 ML ASDIR IV Norepinephrine Bitartrate (NOREPINEPHRINE 8 MG/N S 250 ML) 250 ML TITRATE IV Potassium Chloride (KCL 20MEQ/SWFI 100ML) 100 ML ASDIR PRN IV Sodium Bicarbonate (SODIUM BICARBONATE) 50 MEQ A SDIR PRN IV Sodium Chloride (SODIUM CHLORIDE 0.9%) 1,000 ML .Q20H IV Sodium Chloride (SODIUM CHLORIDE 0.9%) 250 ML Q2 4H IV Atorvastatin Calcium (LIPITOR) 40 MG 2100 PO (DC ) Ceftriaxone Sodium (ROCEPHIN 1000MG VIAL) 1,000 MG Q24H IV (DC) Sodium Chloride (SODIUM CHLORIDE) 10 ML Ondansetron HCl (ZOFRAN) 4 MG Q6H PRN PRN IV Amlodipine Besylate (NORVASC) 5 MG DAILY PO (DC) Vancomycin HCl (VANCOMYCIN HCL) 1,750 MG PREOP O NCALL IV (CKD) Sodium Chloride (NS 0.9%) 500 ML Results Findings/Data: Laboratory Tests 12/23 12/22 12/22 0743 1293 5189 Blood Gas Puncture Site R Radial Central Line Central Li ne O2 Saturation (90 - 100 %) 90.0 ABG pH (7.35 - 7.45) 7.313 L ABG pCO2 (35.0 - 45 mmHg) 61.5 *H ABG pO2 (80 - 100.0 mmHg) 65.8 L ABG PO2/FiO2 Ratio (mm/Hg) 90.13 ABG HCO3 (22.0 - 26.0 MMOL/L) 31.2 *H ABG Total CO2 33.1 ABG Base Excess (-4.0 - 4.0 MMOL/L) 5.0 H ABG Hematocrit (33.0 - 45.0 %) 33 35 24 L ABG Hemoglobin (11.0 - 15.0 G/DL) 11.2 11.8 8.1 L Martin Test Positive N/A N/A VBG pH (7.33 - 7.45) 7.282 L 7.226 L VBG pCO2 (43 - 47 mmHg) 61.7 *H 74.1 *H VBG pO2 (10 - 50 mmHG) 37.2 36.8 VBG HCO3 (22 - 27 MMOL/L) 29.3 H 30.9 H POC VBG Total CO2 31.2 33.2 VBG O2 Saturation (60 - 80 %) 63.2 58.2 L VBG Base Excess (-4.0 - 4.0 MMOL/L) 2.5 3.2 VBG Temperature (F) 98 98 Sodium (134 - 147 MEQ/L) 145 142 143 Potassium (3.4 - 5.0 MEQ/L) 3.6 6.2 *H 3.6 Chloride (100 - 108 MEQ/L) 106 106 103 Ionized Calcium (1.12 - 1.32 MMOL/L) 1.38 H 1.3 5 H 1.35 H Lactic Acid (0.9 - 1.7 mmol/l) 0.8 L 0.7 L 0.6 L Respiration Rate (/min) 20 O2 Delivery Device HFNC BiPAP Vapotherm Vent Mode BIVENT FiO2 (%) 73 40 60 Tidal Volume (ml) 550 Laboratory Tests 12/23 12/23 12/23 12/23 12/22 0632 0400 0357 0032 2230 Chemistry Sodium (134 - 147 mEq/L) 144 Potassium (3.4 - 5.0 mEq/L) 3.9 Chloride (100 - 108 mEq/L) 107 Carbon Dioxide (21 - 33 mEq/l) 28 Anion Gap (0 - 20) 13 BUN (7 - 18 mg/dL) 33 H Creatinine (0.6 - 1.3 mg/dL) 1.1 POC Creatinine (0.6 - 1.0 mg/dL) 1.1 H Glomerular Filtr Rate (70 - 80) 48.0 L Glucose (70 - 110 mg/dL) 222 H POC Glucose (70 - 110 MG/DL) 213 H 222 H POC Glucose (mg/dL) (70 - 110 MG/DL) 234 H Calcium (8.0 - 10.5 mg/dL) 10.5 Magnesium (1.80 - 2.40 mg/dL) 2.42 H 12/22 12/22 12/22 12/22 12/22 2141 1750 1747 1549 1126 Chemistry POC Creatinine (0.6 - 1.0 mg/dL) 1.1 H 1.2 H POC Glucose (70 - 110 MG/DL) 168 H 238 H 258 H POC Glucose (mg/dL) (70 - 110 MG/DL) 236 H 371 H Laboratory Tests 12/23 0400 Hematology WBC (4.5 - 11.0 x10 3/uL) 6.3 RBC (3.54 - 5.02 x10 6/uL) 2.44 L Hgb (11.0 - 15.0 g/dL) 8.7 L Hct (33.0 - 45.0 %) 27.6 L MCV (81.0 - 99.0 fL) 113.1 H MCH (27.0 - 33.0 pg) 35.7 H MCHC (33.0 - 37.0 g/dL) 31.5 L RDW (11.5 - 14.5 %) 15.9 H Plt Count (150 - 400 x10 3/uL) 92 L MPV (7.0 - 9.0 fL) 11.9 H Neut % (Auto) (56.0 - 77.0 %) 86.0 H Lymph % (Auto) (14.0 - 32.0 %) 3.0 L Barron % (Auto) (4.8 - 9.0 %) 9.2 H Eos % (Auto) (0.3 - 3.7 %) 0.5 Baso % (Auto) (0.0 - 2.0 %) 0.2 Neut # (Auto) (2.0 - 7.6 x10 3/uL) 5.42 Lymph # (Auto) (1.0 - 3.8 x10 3/uL) 0.19 L Barron # (Auto) (0.1 - 0.8 x10 3/uL) 0.58 Eos # (Auto) (0.0 - 0.2 x10 3/uL) 0.03 Baso # (Auto) (0.0 - 0.2 x10 3/uL) 0.01 Abs Immat Gran (auto) (0.00 - 0.03 x10 3/uL) 0. 07 H Add Manual Diff NO Immature Gran % (0.0 - 2.0 %) 1.1 Nucleated RBC % (0 - 0 %) 0.5 H Nucleated RBCs # (Man) (0.0 - 0.1 x10 3/uL) 0.0 3 Radiology data: Recent Impressions: ULTRASOUND - US SOFT TISSUE TORSO 12/22 1107 Report Impression - Status: SIGNED Entered: 12/22/2021 1125 IMPRESSION: Minimal left and mild right pleural effusions. Impression By: [email or web address] - Amina Garcia D.O. RADIOLOGY - XR ABDOMEN 1V (KUB) 12/22 2133 Report Impression - Status: SIGNED Entered: 12/22/20215 IMPRESSION: Nonspecific lower abdomen small bowel distention . If symptoms persist or worsen, follow-up imaging may be perf ormed to better assess for small bowel obstruction Impression By: [email or web address] - Anoop Lilly M.D. RADIOLOGY - XR ABDOMEN 1V (KUB) 12/23 0055 Report Impression - Status: SIGNED Entered: 12/23/2021 0122 IMPRESSION: 1. A nasogastric tube terminates overlying the s tomach. 2. Dilated small bowel loops in the left lower q uadrant. Impression By: [email or web address] - Sanchez Mendiola M.D RADIOLOGY - XR CHEST 1 V 12/23 0655 Report Impression - Status: SIGNED Entered: 12/23/2021 0807 IMPRESSION: Stable postoperative chest, followin g removal of bilateral chest tubes. Impression By: [email or web address] - Enrico Kelley Results: labs reviewed, vital signs stable, ryth m personally rev'd, x-ray personally reviewed, current med profile rev'd Treatment Prophylaxis Treatment Prophylaxis Oxygen: CPAP/BIPAP Lines: arterial, CVC, peripheral Drain(s)/tube(s): Drain(s)/tube(s): chest (x3) Quality: Trauma Gen Surg Current Medications Current medication review: Home Medications: RIVAROXABAN (XARELTO) 20 MG PO DAILY amLODIPine (NORVASC) 5 MG PO DAILY cloNIDine (CATAPRES) 0.3 MG PO BID DOXAZOSIN (CARDURA) LISINOPRIL (ZESTRIL) OLMESARTAN (BENICAR) 40 MG PO DAILY PRAVASTATIN (PRAVACHOL) FUROSEMIDE (LASIX) 10 MG PO DAILY METOLAZONE (ZAROXOLYN) 10 MG PO DAILY POTASSIUM CHLORIDE ER (MICRO-K) 10 MEQ PO DAILY OMEPRAZOLE ER 20 MG PO DAILY GLIMEPIRIDE (AMARYL) 4 MG PO DAILY INSULIN DETEMIR (LEVEMIR FlexTouch (15mL)) 50 UN ITS SUBQ BID INSULIN LISPRO (HumaLOG CARTRIDGE (15mL)) 0 UNIT S SUBQ TID LIRAGLUTIDE (VICTOZA (6mL)) 1.8 MG SUBQ DAILY metFORMIN (GLUCOPHAGE) 1,000 MG PO BID ADALIMUMAB + SUPPLIES (HUMIRA PREFILLED PEN) 40 MG SUBQ Q14D azaTHIOprine (IMURAN) 50 MG PO DAILY I attest that the foregoing medication list in [facility] medical record is true, accurate, and complete to the best of my knowled ge. Diagnosis, Assessment Plan Hospital course to date: This very pleasant 76-year-old female, from [facility], with past medical history of macular d egeneration, obesity, obstructive sleep apnea (CPAP at home), former smoker, hyp ertension, hyperlipidemia, diabetes, Crohn's disease , chronic atrial fibrillatio n status post 3 ablations in the past (on Xarelto), pacemaker placement who had a recent admission t o the hospital with heart failure symptoms. She has be en admitted to the hospital today for elective heart cath. Coronary angiogram showed severe multivess el coronary artery disease suitable for percutaneous intervention. CV surge ry called for evaluation. PLAN Patient has severe coronary artery disease and c onstrictive pericarditis. She will benefit from off-pump L CHAD to LAD and pericardiotomy. Dr. Romero explained to the patient the surgery, risks involv ed, STS score, benefits, complications and alternatives. She acknowledged understanding and is willing to proceed Preop work-up has been initiated We will tentatively schedule patient for surgery tomorrow. 12/18 Preop assessment ongoing No carotid stenosis on ultrasound CT chest reviewed with Dr. Romero Surgery rescheduled for tomorrow NPO after midnight Plan discussed with the patient 12/20 POD 1 Patient hemodynamically stable, cardiac index 3. 1 Required Bipap after extubation yesterday and ov ernight Trend ABGs- wean bipap as tolerated Decrease milrinone drip to 0.125, and continue v asopressin at 0.02 Urine output marginal- dopamine drip started at 3 Creatinine increased to 1.4, monitor strict I an d O's Encourage po intake, incentive spirometer use Try to get patient out of bed to chair today PT/OT Monitor patient closely in the CVICU 12/22/21 POD3 d/c chest tubes need to diuresis agressively 40 q12 edema needs legs elevated cxr appears wet d/c swan TPN due to bipap teleflex today keep TPN for now 12/23 POD 4 Labs and cxr reviewed Increase diuresis- monitor strict I Os Continue TPN On teleflex 60L 70%- wean as tolerated Monitor patient in CVICU Consultants: cardiology, cardiovascular surgery at [address] [facility] #:[id number] END OF REPORT 2021-12-22 16:42:00-00:00 [facility]L [facility] Cardiothoracic Surgery Prog REPORT#:[id number] REPORT STATUS: Signed DATE:12/22/21 TIME: 1642 PATIENT: SAÚL GLIES UNIT #: [id number] ROOM/BED: [place] [id number] : 43 AGE: 76 SEX: F ATTEND: Leah More MD ADM AUTHOR: Tj Bonner MD * ALL edits or amendments must be made on the [employer] document * General Post-op: day 3 Status post: 1. Mitral valve replacement (31 Magna valve). 2. Coronary artery bypass graft surgery x1 (GOMES A to LAD). 3. Isolation of left atrial appendage. 4. Pericardiectomy. Subjective Chief complaint: Shortness of breath Review of Systems Constitutional: Denies: fever, malaise. Allergy/Immun: Denies: allergic reaction. ENT: Denies: sore throat. Respiratory: Denies: SOB. GI: Denies: abdominal pain, nausea, vomiting. Heme: Denies: bleeding. Neuro: Denies: focal weakness, headache. All systems rev neg: except as marked Objective General VS/I O Last Documented: Result Date Time Pulse Ox 94 12/22 1501 FiO2 50 12/22 1501 Pulse 70 12/22 1501 B/P 137/61 12/22 1500 B/P Mean 88 12/22 1500 Temp 36.1 12/22 1500 Resp 23 12/22 1500 O2 Flow Rate 60 12/22 1442 O2 Delivery High flow nasal cannula 12/22 0800 24 hour I O ending at 0700: 12/22 0700 12/21 1900 Intake Total 730.00 1506.00 Output Total 925 840 Balance -195.00 666.00 Intake, IV 480.00 786.00 Intake, Oral 250 720 Output, Chest 160 270 Tube Drainage Output, Urine 765 570 Patient 125.3 kg Weight Weight Standing scale Measurement Method PATIENT WEIGHT: Weight (lb): 276 Weight (oz): 3.83 Weight (kg): 125.300 Dietitian Nutrition assessment The data set between the solid lines has been im ported from the dietitian's assessment. BMI Calculated: 47.4 Nutrition related diagnosis: Morbid obesity Nutrition diagnosis details: BMI 40 or more Nutrition problem: Increased nutrient needs Nutrition etiology: Chronic disease Nutrition signs and symptoms: S/P CABG Nutrition prescription: 1. RECOMMEND 1800 ADA DI ABETIC DIET. 2. PROVIDE GLUCERNA TID WITH MEALS. 3. CONTINUE CURRENT TPN ORDER TO SUPPLEMENT MEALS UNTIL PO INTAKE >50% AT MEALS. 4. MONITOR PO, WT, LABS , BM. Dietitian name: Serenity Garner, DIET Assessment completed: 12/22/21 Physical Exam General appearance: alert, awake, oriented Wound/incision: Location: sternal Site condition: dressing clean dry, dressing in tact HEENT: anicteric Neck: supple/no meningismus Cardiovascular: normal heart sounds, regular rat e rhythm Respiratory: aerating well, symmetric expansion, no distress Abdomen: soft, non-tender, no distention Extremities: moves all 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, 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, normal speech Skin: dry, intact, normal temperature Psychiatry: normal affect, normal mood Current Medications Medications: Active Meds + DC'd Last 24 Hrs Fat Emulsion (FAT EMULSION 20% (INTRALIPID)) 100 ML 2200 IV Furosemide (LASIX 40 mg/4 mL INJECTION) 40 MG Q8 H IV Insulin Glargine (Lantus/Semglee) 10 UNIT BID QUINTA[place] BQ Cyanocobalamin (Vitamin B-12 500 mcg tab) 500 MC G DAILY PO Ferrous Sulfate (FERROUS SULFATE) 325 MG DAILY P O Amino Acids/Electrolytes/Dextrose (TPN ADULT- CE NTRAL 1000ML) 840 ML 2200 IV Acetylcysteine (MUCOMYST FOR RT) 200 MG RTQ6H NE B Albuterol/Ipratropium (DUONEB) 3 ML RTQ6H NEB Albumin Human (ALBUMINAR 5% 12.5GM/250ML) 12.5 G M Q12H IV Furosemide (LASIX 40 mg/4 mL INJECTION) 40 MG Q1 2H IV (DC) Bisacodyl (DULCOLAX) 10 MG ONCE PRN RECTAL Insulin Human Lispro (HUMALOG) 0 Q6HR SUBQ Magnesium Hydroxide (MILK OF MAGNESIA) 30 ML ONC E PRN PO (DC) Dextrose/Water (Dextrose 10% 1,000 mL) 1,000 ML ASDIR PRN IV Miscellaneous Information (TPN (Central) PHARMAC Y TO DOSE) 1 EACH ASDIR IV Clopidogrel Bisulfate (Plavix) 75 MG DAILY PO Polyethylene Glycol (MIRALAX) 17 GM DAILY PO Dopamine HCl/Dextrose (DOPamine 400MG/D5W 250ML) 250 ML ASDIR IV Pantoprazole (PROTONIX) 40 MG DAILY@0600 PO Docusate Sodium (COLACE) 100 MG BID PO Metoprolol Tartrate (LOPRESSOR) 12.5 MG Q12HR PO Sennosides (Senna Lax 8.6 MG TABLET) 17.2 MG BED TIME PO Milrinone Lactate/Dextrose (MILRINONE 20MG/D5W 1 00ML) 100 ML ASDIR IV ( CKD) Vasopressin (VASOSTRICT 20 Unit/NS 100ML) 100 ML ASDIR IV (CKD) Aspirin (ASPIRIN) 81 MG DAILY PO Gabapentin (NEURONTIN) 200 MG BID 9A 5P PO Amiodarone HCl (CORDARONE) 200 MG TID PO Tramadol HCl (ULTRAM) 25 MG Q4H PRN PRN PO Tramadol HCl (ULTRAM) 50 MG Q4H PRN PRN PO Mupirocin (BACTROBAN 2% 22 GM OINTMENT) 1 APPLIC BID NASAL Acetaminophen (TYLENOL) 650 MG Q4H PRN PRN PO Acetaminophen (TYLENOL) 650 MG Q4H PRN PRN RECTA L Calcium Chloride (CALCIUM CHLORIDE) 1 GM ASDIR P RN IV Dextrose/Water (DEXTROSE 10% IN WATER) 125 ML DIR PRN IV (CKD) Dextrose/Water (DEXTROSE 10% IN WATER) 250 ML DIR PRN IV (CKD) Epinephrine (ADRENALIN CHLORIDE) 5 MG ASDIR IV Dextrose/Water (DEXTROSE 5% WATER) 245 ML Glucagon (GLUCAGON) 1 MG ASDIR PRN IM Magnesium Sulfate (MAGNESIUM SULFATE 4GM/SWFI 10 0ML) 100 ML ASDIR PRN IV Magnesium Sulfate (MAGNESIUM SULFATE 2GM/SWFI 50 ML) 50 ML ASDIR PRN IV Magnesium Sulfate/Dextrose (MAGNESIUM SULFATE 1G M/D5W 100ML) 100 ML ASDIR PRN IV Nitroglycerin/Dextrose (NITROGLYCERIN 50,000MCG/ D5W 250ML) 250 ML ASDIR IV Norepinephrine Bitartrate (NOREPINEPHRINE 8 MG/N S 250 ML) 250 ML TITRATE IV Potassium Chloride (KCL 20MEQ/SWFI 100ML) 100 ML ASDIR PRN IV Sodium Bicarbonate (SODIUM BICARBONATE) 50 MEQ A SDIR PRN IV Sodium Chloride (SODIUM CHLORIDE 0.9%) 1,000 ML .Q20H IV Sodium Chloride (SODIUM CHLORIDE 0.9%) 250 ML Q2 4H IV Atorvastatin Calcium (LIPITOR) 40 MG 2100 PO Ceftriaxone Sodium (ROCEPHIN 1000MG VIAL) 1,000 MG Q24H IV Sodium Chloride (SODIUM CHLORIDE) 10 ML Ondansetron HCl (ZOFRAN) 4 MG Q6H PRN PRN IV Amlodipine Besylate (NORVASC) 5 MG DAILY PO (DC) Vancomycin HCl (VANCOMYCIN HCL) 1,750 MG PREOP O NCALL IV (CKD) Sodium Chloride (NS 0.9%) 500 ML Results Findings/Data: Laboratory Tests 12/22 12/22 12/22 12/21 1549 0433 0005 2107 Blood Gas Puncture Site Central Line Art Line Art Line Ar t Line O2 Saturation (90 - 100 %) 96.0 92.5 90.0 ABG pH (7.35 - 7.45) 7.334 L 7.330 L 7.306 L ABG pCO2 (35.0 - 45 mmHg) 55.7 *H 51.8 *H 56.1 *H ABG pO2 (80 - 100.0 mmHg) 88.6 69.4 L 64.8 L ABG PO2/FiO2 Ratio (mm/Hg) 147.66 115.66 108.0 0 ABG HCO3 (22.0 - 26.0 MMOL/L) 29.7 *H 27.5 H 28 .1 *H ABG Total CO2 31.4 29.1 29.8 ABG Base Excess (-4.0 - 4.0 3.8 1.4 1.7 MMOL/L) ABG Hematocrit (33.0 - 45.0 %) 24 L 25 L 24 L 2 5 L ABG Hemoglobin (11.0 - 15.0 G/DL) 8.1 L 8.6 L 8 .3 L 8.4 L Martin Test N/A VBG pH (7.33 - 7.45) 7.226 L VBG pCO2 (43 - 47 mmHg) 74.1 *H VBG pO2 (10 - 50 mmHG) 36.8 VBG HCO3 (22 - 27 MMOL/L) 30.9 H POC VBG Total CO2 33.2 VBG O2 Saturation (60 - 80 %) 58.2 L VBG Base Excess (-4.0 - 4.0 3.2 MMOL/L) VBG Temperature (F) 98 Sodium (134 - 147 MEQ/L) 143 145 142 142 Potassium (3.4 - 5.0 MEQ/L) 3.6 3.7 4.1 4.4 Chloride (100 - 108 MEQ/L) 103 106 106 107 Ionized Calcium (1.12 - 1.32 1.35 H 1.44 H 1.40 H 1.39 H MMOL/L) Lactic Acid (0.9 - 1.7 mmol/l) 0.6 L 0.9 0.8 L 0.8 L Temperature (F) 98.4 97.7 98.1 Respiration Rate (/min) 20 O2 Delivery Device Vapotherm BiPAP BiPAP BiPAP Vent Rate (/MIN) 25 25 25 FiO2 (%) 60 60 60 60 Tidal Volume (ml) 550 550 550 550 Laboratory Tests 12/22 12/22 12/22 12/22 12/22 1549 1126 0650 0433 0430 Chemistry POC Creatinine (0.6 - 1.0 mg/dL) 1.2 H 1.3 H POC Glucose (70 - 110 MG/DL) 258 H 211 H POC Glucose (mg/dL) (70 - 110 MG/DL) 371 H 224 H Phosphorus (2.5 - 4.9 MG/DL) 3.4 12/22 12/22 12/22 12/21 0430 0005 0005 2107 Chemistry Sodium (134 - 147 mEq/L) 143 Potassium (3.4 - 5.0 mEq/L) 4.0 Chloride (100 - 108 mEq/L) 106 Carbon Dioxide (21 - 33 mEq/l) 27 Anion Gap (0 - 20) 14 BUN (7 - 18 mg/dL) 33 H Creatinine (0.6 - 1.3 mg/dL) 1.3 POC Creatinine (0.6 - 1.0 mg/dL) 1.4 H 1.6 H Glomerular Filtr Rate (70 - 80) 39.6 L Glucose (70 - 110 mg/dL) 219 H POC Glucose (70 - 110 MG/DL) 178 H POC Glucose (mg/dL) (70 - 110 MG/DL) 196 H 200 H Calcium (8.0 - 10.5 mg/dL) 10.4 Magnesium (1.80 - 2.40 mg/dL) 2.20 Total Bilirubin (0.0 - 1.0 mg/dL) 0.50 Direct Bilirubin (0.0 - 0.30 MG/DL) 0.20 Indirect Bilirubin (MG/DL) 0.30 AST (15 - 37 IUnit/L) 22 ALT (30 - 65 IUnit/L) 13 L Total Alk Phosphatase (20 - 125 IUnit/L) 57 Total Protein (6.4 - 8.2 g/dL) 6.8 Albumin (3.4 - 5.0 g/dL) 4.30 Laboratory Tests 12/22 0430 Hematology WBC (4.5 - 11.0 x10 3/uL) 9.0 RBC (3.54 - 5.02 x10 6/uL) 2.32 L Hgb (11.0 - 15.0 g/dL) 8.2 L Hct (33.0 - 45.0 %) 25.3 L MCV (81.0 - 99.0 fL) 109.1 H MCH (27.0 - 33.0 pg) 35.3 H MCHC (33.0 - 37.0 g/dL) 32.4 L RDW (11.5 - 14.5 %) 16.1 H Plt Count (150 - 400 x10 3/uL) 84 L MPV (7.0 - 9.0 fL) 11.9 H Neut % (Auto) (56.0 - 77.0 %) 88.9 H Lymph % (Auto) (14.0 - 32.0 %) 2.6 L Barron % (Auto) (4.8 - 9.0 %) 7.5 Eos % (Auto) (0.3 - 3.7 %) 0.1 L Baso % (Auto) (0.0 - 2.0 %) 0.1 Neut # (Auto) (2.0 - 7.6 x10 3/uL) 7.98 H Lymph # (Auto) (1.0 - 3.8 x10 3/uL) 0.23 L Barron # (Auto) (0.1 - 0.8 x10 3/uL) 0.67 Eos # (Auto) (0.0 - 0.2 x10 3/uL) 0.01 Baso # (Auto) (0.0 - 0.2 x10 3/uL) 0.01 Abs Immat Gran (auto) (0.00 - 0.03 x10 3/uL) 0. 07 H Add Manual Diff NO Immature Gran % (0.0 - 2.0 %) 0.8 Nucleated RBC % (0 - 0 %) 0.2 H Nucleated RBCs # (Man) (0.0 - 0.1 x10 3/uL) 0.0 2 Radiology data: Recent Impressions: ULTRASOUND - US RETROPERITONEAL COM 12/21 1800 Report Impression - Status: SIGNED Entered: 12/21/2021 1928 IMPRESSION: Limited exam. No sonographic abnormality of the kidneys. Impression By: [email or web address] - Haris Chavez M.D. RADIOLOGY - XR CHEST 1 V 12/22 0635 Report Impression - Status: SIGNED Entered: 12/22/2021 0905 IMPRESSION: 1. Interval worsening pulmonary venous vascular congestion. 2. Interval worsening opacity at the right lung/ right hemithorax likely representing combination of increasing pu lmonary parenchymal opacity at the right mid and lower lung lema a nd increase in right pleural fluid collection layering over the right lung. 3. Interval worsening opacity at the retrocardia c left lower lung field. Impression By: [email or web address] - Ming Gibbs M.D. ULTRASOUND - US SOFT TISSUE TORSO 12/22 1107 Report Impression - Status: SIGNED Entered: 12/22/2021 1125 IMPRESSION: Minimal left and mild right pleural effusions. Impression By: [email or web address] - Amina Garcia D.O. Results: labs reviewed, rythm personally rev'd, x-ray personally reviewed, current med profile rev'd Treatment Prophylaxis Treatment Prophylaxis Oxygen: CPAP/BIPAP Lines: arterial, CVC, peripheral Drain(s)/tube(s): Drain(s)/tube(s): chest (x3) Quality: Trauma Gen Surg Current Medications Current medication review: Home Medications: RIVAROXABAN (XARELTO) 20 MG PO DAILY amLODIPine (NORVASC) 5 MG PO DAILY cloNIDine (CATAPRES) 0.3 MG PO BID DOXAZOSIN (CARDURA) LISINOPRIL (ZESTRIL) OLMESARTAN (BENICAR) 40 MG PO DAILY PRAVASTATIN (PRAVACHOL) FUROSEMIDE (LASIX) 10 MG PO DAILY METOLAZONE (ZAROXOLYN) 10 MG PO DAILY POTASSIUM CHLORIDE ER (MICRO-K) 10 MEQ PO DAILY OMEPRAZOLE ER 20 MG PO DAILY GLIMEPIRIDE (AMARYL) 4 MG PO DAILY INSULIN DETEMIR (LEVEMIR FlexTouch (15mL)) 50 UN ITS SUBQ BID INSULIN LISPRO (HumaLOG CARTRIDGE (15mL)) 0 UNIT S SUBQ TID LIRAGLUTIDE (VICTOZA (6mL)) 1.8 MG SUBQ DAILY metFORMIN (GLUCOPHAGE) 1,000 MG PO BID ADALIMUMAB + SUPPLIES (HUMIRA PREFILLED PEN) 40 MG SUBQ Q14D azaTHIOprine (IMURAN) 50 MG PO DAILY I attest that the foregoing medication list in t he medical record is true, accurate, and complete to the best of my knowled ge. Diagnosis, Assessment Plan Hospital course to date: This very pleasant 76-year-old female, from [facility], with past medical history of macular d egeneration, obesity, obstructive sleep apnea (CPAP at home), former smoker, hyp ertension, hyperlipidemia, diabetes, Crohn's disease , chronic atrial fibrillatio n status post 3 ablations in the past (on Xarelto), pacemaker placement who had a recent admission t o the hospital with heart failure symptoms. She has be en admitted to the hospital today for elective heart cath. Coronary angiogram showed severe multivess el coronary artery disease suitable for percutaneous intervention. CV surge ry called for evaluation. PLAN Patient has severe coronary artery disease and c onstrictive pericarditis. She will benefit from off-pump L CHAD to LAD and pericardiotomy. Dr. Romero explained to the patient the surgery, risks involv ed, STS score, benefits, complications and alternatives. She acknowledged understanding and is willing to proceed Preop work-up has been initiated We will tentatively schedule patient for surgery tomorrow. 12/18 Preop assessment ongoing No carotid stenosis on ultrasound CT chest reviewed with Dr. Romero Surgery rescheduled for tomorrow NPO after midnight Plan discussed with the patient 12/20 POD 1 Patient hemodynamically stable, cardiac index 3. 1 Required Bipap after extubation yesterday and ov ernight Trend ABGs- wean bipap as tolerated Decrease milrinone drip to 0.125, and continue v asopressin at 0.02 Urine output marginal- dopamine drip started at 3 Creatinine increased to 1.4, monitor strict I an d O's Encourage po intake, incentive spirometer use Try to get patient out of bed to chair today PT/OT Monitor patient closely in the CVICU 12/22/21 POD3 d/c chest tubes need to diuresis agressively 40 q12 edema needs legs elevated cxr appears wet d/c swan TPN due to bipap teleflex today keep TPN for now Consultants: cardiology, cardiovascular surgery Electronically Signed by Tj Bonner MD on 12/13 at 1647 RPT #:[id number] END OF REPORT 2021-12-22 14:36:00-00:00 [facility] Hospitalist Progress Note REPORT#:[id number] REPORT STATUS: Signed DATE:12/22/21 TIME: 1436 PATIENT: SAÚL GILES UNIT #: [id number] ROOM/BED: [facility] : 43 AGE: 76 SEX: F ATTEND: Leah More MD ADM AUTHOR: Meryl Rosa MD * ALL edits or amendments must be made on the [employer]/computer document * Subjective Chief complaint: she is on high flow O2. on TPN acute respiratory failure --post CABG HPI: 76 years old female with PMH of macular degeneration, obesity, obstructive sleep apnea (CPAP at home), former smoker, hypertensio n, hyperlipidemia, diabetes, Crohn's disease, chronic atr ial fibrillation status post 3 ablations in the past (on Xarelto), pacemaker plac cindi is admitted to the hospital post cardiac cath . she need CABG . she had sob for years . sob go t worse . she was admitted to the hospital in [place] . she had cath 3 we eks ago . she was reffered to here for stents placement . she had cath yesterd ay . it show multiple vessels CAD . she is recommend CABG . she still feel sob . no cp no nausea no vomiting no fever no abdominal pain no dizziness . Review of Systems Constitutional: Denies: fever, lethargy. Respiratory: Reports: SOB. Denies: wheezing. Cardiovascular: Denies: orthopnea, palpitations. GI: Denies: nausea, vomiting. Neuro: Denies: confusion. Objective General VS/I O: Vital Signs: Date Time Temp Pulse Resp B/P B/P Pulse O2 O2 F low FiO2 Mean Ox Delivery Rate 12/22 1349 36.4 72 16 92 12/22 1345 36.4 72 19 117/58 82 93 12/22 1330 36.4 72 24 109/55 79 94 12/22 1315 36.5 72 13 129/60 87 93 12/22 1300 36.6 81 33 143/76 102 92 12/22 1245 36.6 69 23 137/75 99 93 12/22 1235 36.6 72 20 145/67 96 90 12/22 1230 76 35 12/22 1218 36.6 72 24 128/76 94 91 12/22 1215 36.6 76 25 91 12/22 1201 36.6 46 22 149/117 130 91 12/22 1200 36.6 41 24 91 12/22 1145 36.5 69 22 141/84 106 93 12/22 1130 36.5 72 26 125/64 87 91 12/22 1115 36.5 69 22 121/56 81 92 12/22 1100 36.5 72 26 138/61 88 92 10 1045 36.5 73 21 132/60 86 91 12/22 1031 36.5 71 13 130/58 83 91 12/22 1030 36.5 71 15 91 12/22 1015 36.5 75 23 135/61 88 90 12/22 1000 36.5 73 27 130/58 84 91 10/10 0945 36.5 73 30 142/62 89 89 10/10 0930 36.5 71 28 136/61 88 90 10/10 0915 36.5 69 15 137/63 91 94 10/10 0900 36.4 72 31 126/61 88 91 10/10 0845 36.4 71 26 148/60 92 93 10/10 0838 36.4 81 80 93 10/10 0830 36.5 76 51 152/69 99 93 10/10 0815 36.5 72 26 147/65 93 91 10/10 0814 72 20 91 60 70 10/10 0800 High flow 60 80 nasal cannula 10/10 0800 36.5 75 28 150/67 97 90 10/10 0746 36.5 71 32 149/66 95 89 10/10 0745 36.5 73 30 88 10/10 0730 36.6 75 19 156/64 92 92 10/10 0715 36.6 72 31 161/71 102 90 10/10 0700 36.6 74 28 157/70 101 90 10/10 0327 75 95 60 10/10 0319 36.9 73 26 109/85 96 84 10/10 0315 36.8 73 30 157/65 93 90 10/10 0238 36.8 75 27 122/83 101 95 10/10 0231 111/79 94 10/10 0231 36.8 73 29 155/67 97 91 10/10 0230 36.8 72 27 105/76 90 89 10/10 0215 110/82 96 10/10 0215 36.8 72 25 166/70 100 95 10/10 0200 109/76 92 10/10 0200 36.8 69 30 175/72 104 93 10/10 0145 81/81 81 10/10 0145 36.8 73 28 169/72 104 94 10/10 0134 95/74 86 10/10 0134 36.8 75 30 174/74 106 94 10/10 0131 89/73 83 10/10 0130 36.8 75 30 101/75 90 94 10/10 0115 87/73 81 10/10 0115 36.7 72 28 161/70 101 98 10/10 0100 121/116 119 10/10 0100 36.8 75 28 161/71 102 96 10/10 0045 140/77 102 10/10 0045 36.8 73 26 158/74 107 96 10/10 0030 132/85 103 10/ 0030 36.8 75 25 154/68 98 95 10/10 0015 167/69 97 10/ 0015 36.7 75 29 162/72 104 95 10/10 0010 195/70 101 10 0010 36.8 76 26 152/67 96 95 10/ 0009 76 93 60 10/ 0000 174/69 99 10/ 0000 36.6 75 26 159/70 100 94 10 2345 167/67 93 12/21 2345 36.7 75 23 149/69 99 96 12/21 2330 167/66 93 12/21 2330 36.8 75 21 134/63 91 95 12/21 2315 169/67 95 12/21 2315 36.7 76 25 149/66 95 95 12/21 2300 166/66 92 12/21 2300 36.7 76 25 147/67 97 94 12/21 2245 168/67 93 12/21 2245 36.7 75 28 141/63 91 94 12/21 2230 168/63 90 12/21 2230 36.7 72 26 139/64 92 87 12/21 2215 158/61 85 12/21 2215 36.7 75 25 132/60 87 92 12/21 2208 150/60 83 12/21 2208 36.7 72 25 128/61 88 91 12/21 2200 36.7 72 29 113/61 78 92 12/21 2145 36.7 69 33 172/67 97 93 12/21 2130 36.7 69 27 165/61 87 90 12/215 36.7 69 27 179/59 86 87 12/21 2100 36.7 72 26 147/60 85 96 12/21 2044 36.7 69 26 138/53 74 96 12/22 2031 69 96 60 12/22 2031 96 BiPAP 60 12/21 2029 36.7 69 27 142/54 77 92 12/21 2014 36.7 73 25 151/56 79 97 12/22 1999 BiPAP 60 12/22 1999 36.7 70 27 149/53 75 93 12/21 1945 36.8 69 20 151/52 75 95 12/21 1930 36.8 69 14 145/51 72 96 12/21 1915 36.8 69 15 143/52 73 96 12/21 1900 36.8 71 28 165/56 82 94 12/21 1824 36.8 69 19 156/55 79 96 12/21 1815 36.9 70 21 155/55 79 96 12/21 1800 36.9 72 15 139/49 70 98 12/21 1745 37.0 73 17 139/49 70 97 12/21 1730 37.1 72 17 121/43 61 96 12/21 1647 37.2 72 141/46 68 98 12/21 1645 37.2 76 37 131/46 68 98 12/21 1630 37.2 69 152/46 70 98 12/21 1615 37.2 80 180/54 91 97 12/21 1614 37.2 78 177/44 87 99 12/21 1609 84 20 98 60 100 12/21 1600 37.2 75 172/54 83 100 12/21 1545 37.2 71 26 172/55 85 99 12/21 1530 37.2 70 31 171/54 84 99 12/21 1515 37.2 72 26 170/53 84 100 12/21 1500 70 27 162/48 75 97 12/21 1445 69 25 172/56 88 98 24 hour I O ending at 0700: 12/22 0700 12/21 1900 Intake Total 730.00 1506.00 Output Total 925 840 Balance -195.00 666.00 Intake, IV 480.00 786.00 Intake, Oral 250 720 Output, Chest 160 270 Tube Drainage Output, Urine 765 570 Patient 125.3 kg Weight Weight Standing scale Measurement Method PATIENT WEIGHT: Weight (lb): 276 Weight (oz): 3.83 Weight (kg): 125.300 Medications: Active Meds + DC'd Last 24 Hrs Furosemide (LASIX 40 mg/4 mL INJECTION) 40 MG Q8 H IV Insulin Glargine (Lantus/Semglee) 10 UNIT BID [place] BQ Cyanocobalamin (Vitamin B-12 500 mcg tab) 500 MC G DAILY PO Ferrous Sulfate (FERROUS SULFATE) 325 MG DAILY P O Amino Acids/Electrolytes/Dextrose (TPN ADULT- CE NTRAL 1000ML) 840 ML 2200 IV Acetylcysteine (MUCOMYST FOR RT) 200 MG RTQ6H NE B Albuterol/Ipratropium (DUONEB) 3 ML RTQ6H NEB Albumin Human (ALBUMINAR 5% 12.5GM/250ML) 12.5 G M Q12H IV Furosemide (LASIX 40 mg/4 mL INJECTION) 40 MG Q1 2H IV (DC) Bisacodyl (DULCOLAX) 10 MG ONCE PRN RECTAL Insulin Human Lispro (HUMALOG) 0 Q6HR SUBQ Magnesium Hydroxide (MILK OF MAGNESIA) 30 ML ONC E PRN PO (DC) Dextrose/Water (Dextrose 10% 1,000 mL) 1,000 ML ASDIR PRN IV Miscellaneous Information (TPN (Central) PHARMAC Y TO DOSE) 1 EACH ASDIR IV Clopidogrel Bisulfate (Plavix) 75 MG DAILY PO Polyethylene Glycol (MIRALAX) 17 GM DAILY PO Dopamine HCl/Dextrose (DOPamine 400MG/D5W 250ML) 250 ML ASDIR IV Pantoprazole (PROTONIX) 40 MG DAILY@0600 PO Docusate Sodium (COLACE) 100 MG BID PO Metoprolol Tartrate (LOPRESSOR) 12.5 MG Q12HR PO Sennosides (Senna Lax 8.6 MG TABLET) 17.2 MG BED TIME PO Milrinone Lactate/Dextrose (MILRINONE 20MG/D5W 1 00ML) 100 ML ASDIR IV ( CKD) Vasopressin (VASOSTRICT 20 Unit/NS 100ML) 100 ML ASDIR IV (CKD) Aspirin (ASPIRIN) 81 MG DAILY PO Gabapentin (NEURONTIN) 200 MG BID 9A 5P PO Amiodarone HCl (CORDARONE) 200 MG TID PO Tramadol HCl (ULTRAM) 25 MG Q4H PRN PRN PO Tramadol HCl (ULTRAM) 50 MG Q4H PRN PRN PO Mupirocin (BACTROBAN 2% 22 GM OINTMENT) 1 APPLIC BID NASAL Acetaminophen (TYLENOL) 650 MG Q4H PRN PRN PO Acetaminophen (TYLENOL) 650 MG Q4H PRN PRN RECTA L Calcium Chloride (CALCIUM CHLORIDE) 1 GM ASDIR P RN IV Dextrose/Water (DEXTROSE 10% IN WATER) 125 ML DIR PRN IV (CKD) Dextrose/Water (DEXTROSE 10% IN WATER) 250 ML DIR PRN IV (CKD) Epinephrine (ADRENALIN CHLORIDE) 5 MG ASDIR IV Dextrose/Water (DEXTROSE 5% WATER) 245 ML Glucagon (GLUCAGON) 1 MG ASDIR PRN IM Magnesium Sulfate (MAGNESIUM SULFATE 4GM/SWFI 10 0ML) 100 ML ASDIR PRN IV Magnesium Sulfate (MAGNESIUM SULFATE 2GM/SWFI 50 ML) 50 ML ASDIR PRN IV Magnesium Sulfate/Dextrose (MAGNESIUM SULFATE 1G M/D5W 100ML) 100 ML ASDIR PRN IV Nitroglycerin/Dextrose (NITROGLYCERIN 50,000MCG/ D5W 250ML) 250 ML ASDIR IV Norepinephrine Bitartrate (NOREPINEPHRINE 8 MG/N S 250 ML) 250 ML TITRATE IV Potassium Chloride (KCL 20MEQ/SWFI 100ML) 100 ML ASDIR PRN IV Sodium Bicarbonate (SODIUM BICARBONATE) 50 MEQ A SDIR PRN IV Sodium Chloride (SODIUM CHLORIDE 0.9%) 1,000 ML .Q20H IV Sodium Chloride (SODIUM CHLORIDE 0.9%) 250 ML Q2 4H IV Atorvastatin Calcium (LIPITOR) 40 MG 2100 PO Ceftriaxone Sodium (ROCEPHIN 1000MG VIAL) 1,000 MG Q24H IV Sodium Chloride (SODIUM CHLORIDE) 10 ML Ondansetron HCl (ZOFRAN) 4 MG Q6H PRN PRN IV Amlodipine Besylate (NORVASC) 5 MG DAILY PO (DC) Vancomycin HCl (VANCOMYCIN HCL) 1,750 MG PREOP O NCALL IV (CKD) Sodium Chloride (NS 0.9%) 500 ML Physical Exam General appearance: alert, awake Head/Eyes: atraumatic, normal conjunctiva/sclera , normal eyelids/periorb., normocephalic ENT: intubated Neck: full range of motion, non-tender, no JVD Cardiovascular: normal heart sounds, regular rat e rhythm Respiratory: dyspneic, hypercapnia, hypoxia, on oxygen, clear to auscultation Abdomen: non-tender, normal bowel sounds, soft, no distention Extremities: moves all, no calf tenderness, no e ana 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 Skin: dry, intact Results Findings/Data: Laboratory Tests 12/22 12/22 12/21 12/21 0433 0005 2107 1603 Blood Gas Puncture Site Art Line Art Line Art Line Art Li ne O2 Saturation (90 - 100 %) 96.0 92.5 90.0 96.0 ABG pH (7.35 - 7.45) 7.334 L 7.330 L 7.306 L 7 .282 *L ABG pCO2 (35.0 - 45 mmHg) 55.7 *H 51.8 *H 56.1 *H 56.0 *H ABG pO2 (80 - 100.0 mmHg) 88.6 69.4 L 64.8 L 92 .5 ABG PO2/FiO2 Ratio (mm/Hg) 147.66 115.66 108.00 92.50 ABG HCO3 (22.0 - 26.0 MMOL/L) 29.7 *H 27.5 H 28 .1 *H 26.5 H ABG Total CO2 31.4 29.1 29.8 28.3 ABG Base Excess (-4.0 - 4.0 MMOL/L) 3.8 1.4 1.7 -0.3 ABG Hematocrit (33.0 - 45.0 %) 25 L 24 L 25 L 25 L ABG Hemoglobin (11.0 - 15.0 G/DL) 8.6 L 8.3 L 8 .4 L 8.6 L Martin Test N/A Sodium (134 - 147 MEQ/L) 145 142 142 144 Potassium (3.4 - 5.0 MEQ/L) 3.7 4.1 4.4 4.2 Chloride (100 - 108 MEQ/L) 106 106 107 108 Ionized Calcium (1.12 - 1.32 MMOL/L) 1.44 H 1.4 0 H 1.39 H 1.33 H Lactic Acid (0.9 - 1.7 mmol/l) 0.9 0.8 L 0.8 L 1.0 Temperature (F) 98.4 97.7 98.1 98 O2 Delivery Device BiPAP BiPAP BiPAP Vapotherm Vent Rate (/MIN) 25 25 25 FiO2 (%) 60 60 60 100 Tidal Volume (ml) 550 550 550 12/21 1444 Blood Gas Puncture Site Art Line O2 Saturation (90 - 100 %) 95.4 ABG pH (7.35 - 7.45) 7.310 L ABG pCO2 (35.0 - 45 mmHg) 52.4 *H ABG pO2 (80 - 100.0 mmHg) 87.5 ABG PO2/FiO2 Ratio (mm/Hg) 145.83 ABG HCO3 (22.0 - 26.0 MMOL/L) 26.3 H ABG Total CO2 27.9 ABG Base Excess (-4.0 - 4.0 MMOL/L) 0.1 ABG Hematocrit (33.0 - 45.0 %) 23 L ABG Hemoglobin (11.0 - 15.0 G/DL) 7.8 L Martin Test N/A Sodium (134 - 147 MEQ/L) 140 Potassium (3.4 - 5.0 MEQ/L) 4.2 Chloride (100 - 108 MEQ/L) 105 Ionized Calcium (1.12 - 1.32 MMOL/L) 1.32 Lactic Acid (0.9 - 1.7 mmol/l) 0.9 Temperature (F) 99 O2 Delivery Device BiPAP FiO2 (%) 60 Laboratory Tests 12/22 12/22 12/22 12/22 12/22 1126 0650 0433 0430 0430 Chemistry Sodium (134 - 147 mEq/L) 143 Potassium (3.4 - 5.0 mEq/L) 4.0 Chloride (100 - 108 mEq/L) 106 Carbon Dioxide (21 - 33 mEq/l) 27 Anion Gap (0 - 20) 14 BUN (7 - 18 mg/dL) 33 H Creatinine (0.6 - 1.3 mg/dL) 1.3 POC Creatinine (0.6 - 1.0 mg/dL) 1.3 H Glomerular Filtr Rate (70 - 80) 39.6 L Glucose (70 - 110 mg/dL) 219 H POC Glucose (70 - 110 MG/DL) 258 H 211 H POC Glucose (mg/dL) (70 - 110 MG/DL) 224 H Calcium (8.0 - 10.5 mg/dL) 10.4 Phosphorus (2.5 - 4.9 MG/DL) 3.4 Magnesium (1.80 - 2.40 mg/dL) 2.20 Total Bilirubin (0.0 - 1.0 mg/dL) 0.50 Direct Bilirubin (0.0 - 0.30 MG/DL) 0.20 Indirect Bilirubin (MG/DL) 0.30 AST (15 - 37 IUnit/L) 22 ALT (30 - 65 IUnit/L) 13 L Total Alk Phosphatase (20 - 125 IUnit/L) 57 Total Protein (6.4 - 8.2 g/dL) 6.8 Albumin (3.4 - 5.0 g/dL) 4.30 12/22 12/22 12/21 12/21 12/21 0005 0005 2107 1611 1603 Chemistry POC Creatinine (0.6 - 1.0 mg/dL) 1.4 H 1.6 H 1. 5 H POC Glucose (70 - 110 MG/DL) 178 H 178 H POC Glucose (mg/dL) (70 - 110 MG/DL) 196 H 200 H 175 H 12/21 1444 Chemistry POC Creatinine (0.6 - 1.0 mg/dL) 1.6 H POC Glucose (mg/dL) (70 - 110 MG/DL) 193 H Laboratory Tests 12/22 0430 Hematology WBC (4.5 - 11.0 x10 3/uL) 9.0 RBC (3.54 - 5.02 x10 6/uL) 2.32 L Hgb (11.0 - 15.0 g/dL) 8.2 L Hct (33.0 - 45.0 %) 25.3 L MCV (81.0 - 99.0 fL) 109.1 H MCH (27.0 - 33.0 pg) 35.3 H MCHC (33.0 - 37.0 g/dL) 32.4 L RDW (11.5 - 14.5 %) 16.1 H Plt Count (150 - 400 x10 3/uL) 84 L MPV (7.0 - 9.0 fL) 11.9 H Neut % (Auto) (56.0 - 77.0 %) 88.9 H Lymph % (Auto) (14.0 - 32.0 %) 2.6 L Barron % (Auto) (4.8 - 9.0 %) 7.5 Eos % (Auto) (0.3 - 3.7 %) 0.1 L Baso % (Auto) (0.0 - 2.0 %) 0.1 Neut # (Auto) (2.0 - 7.6 x10 3/uL) 7.98 H Lymph # (Auto) (1.0 - 3.8 x10 3/uL) 0.23 L Barron # (Auto) (0.1 - 0.8 x10 3/uL) 0.67 Eos # (Auto) (0.0 - 0.2 x10 3/uL) 0.01 Baso # (Auto) (0.0 - 0.2 x10 3/uL) 0.01 Abs Immat Gran (auto) (0.00 - 0.03 x10 3/uL) 0. 07 H Add Manual Diff NO Immature Gran % (0.0 - 2.0 %) 0.8 Nucleated RBC % (0 - 0 %) 0.2 H Nucleated RBCs # (Man) (0.0 - 0.1 x10 3/uL) 0.0 2 Radiology data: Recent Impressions: RADIOLOGY - XR CHEST 1 V 12/22 0635 Report Impression - Status: SIGNED Entered: 12/22/2021 0905 IMPRESSION: 1. Interval worsening pulmonary venous vascular congestion. 2. Interval worsening opacity at the right lung/ right hemithorax likely representing combination of increasing pu lmonary parenchymal opacity at the right mid and lower lung lema a nd increase in right pleural fluid collection layering over the right lung. 3. Interval worsening opacity at the retrocardia c left lower lung field. Impression By: [email or web address] - Ming Gibbs M.D. ULTRASOUND - US SOFT TISSUE TORSO 12/22 110 Report Impression - Status: SIGNED Entered: 12/22/2021 1125 IMPRESSION: Minimal left and mild right pleural effusions. Impression By: [email or web address] - Amina Garcia D.O. Treatment Prophylaxis Treatment Prophylaxis Drain(s)/tube(s): Drain(s)/tube(s): chest (x3) Diagnosis, Assessment Plan Consultants: cardiology, cardiovascular surgery Free Text DxA P Notes Free text DxA P notes: 76 years old female with PMH of macular degeneration, obesity, obstructive sleep apnea (CPAP at home), former smoker, hypertensio n, hyperlipidemia, diabetes, Crohn's disease, chronic atr ial fibrillation status post 3 ablations in the past (on Xarelto), pacemaker placement CAD -- multiple vesssels HTN DM HLD Crohn's disease chronic atrial fibrillation status post 3 ablati ons macular degeneration obesity obstructive sleep apnea acute respiratory failure --post surgery severe mitral valve regurgitation constrictive pericarditis CAD -- cardiology consult CV surgeon consult CABG -- AM ASA/lipitor afib -- rate control -- hold xarelto for surgery HTN-- continue home med DM-- on lantus -- sliding scale HLD-- on lipitor RONA--cpap as need DVTP -- heparin 12/18- feel sob -- CABG -- afternoon 12/19--post MVR (31 Magna valve), CABG x 1 (ROBERTS- LAD), ILAA and pericardectomy -- she remain intubated on the vent -- chest tube are in place -on levophed and epinephrine drip -- monitor in CCU 12/20- she was extubated --on bipap now -- NPO --off Levophed/epinephrine, continue vasopressi n, inotropes with milrinone, -- chest tube remain in place -- she is stable post surgery 12/21-- she is on high flow O2 -- edema --lasix --chest tube in place --- she is hemodynamic stable -- continue monitor in CCU 12/22- she remain on high O2 CXR show worsening pulmonary venous vascular co ngestion. --lasix iv tid -- chest tube are out -- off drips -- NPO -- start TPN -- continue monitor in CCU review all image and consultants notes Current Medications Sig/Fabby Start time Last Medication Dose Route Stop Time Status Admin Amlodipine Besylate 5 MG DAILY 12/18 899 AC PO 01/17 859 Furosemide 10 MG DAILY 12/18 899 AC PO 01/17 08 Lisinopril 40 MG DAILY 12/18 899 AC PO 01/16 1214 Losartan Potassium 100 MG DAILY 12/18 899 AC PO 01/17 859 Metolazone 10 MG DAILY 12/18 899 AC PO 01/17 08 Pantoprazole 40 MG DAILY@0600 12/18 599 AC PO 01/17 05 Cefazolin Sodium 3 GM PREOP ONCALL 12/18 499 C KD Sodium Chloride 250 ML IV 12/18 2358 Metoprolol Tartrate 6.25 MG ONCE ONE 12/18 499 AC PO 12/18 050 Vancomycin HCl 1,750 MG PREOP ONCALL 12/18 499 DC Sodium Chloride 500 ML IV 12/18 2358 Vancomycin HCl 1,750 MG PREOP ONCALL 12/18 499 CKD Sodium Chloride 500 ML IV 12/25 458 Verapamil HCl 16.6 MG .Q24H ONE 12/18 499 CKD Heparin Sodium 1,660 UNIT IV 12/19 458 (Porcine) Sodium Bicarbonate 0.7 ML Nitroglycerin/ 8.3 MG Dextrose Lactated Ringer's 949.5 ML Clonidine HCl 0.3 MG BID 12/17 2099 AC PO 11/04 2059 Doxazosin Mesylate 4 MG BEDTIME 12/17 2099 AC PO 01/16 2059 Insulin Glargine 50 UNIT BID 12/17 2099 AC SUBQ 01/16 2059 Insulin Human Lispro 0 AC HS 12/17 2099 AC SUBQ 01/16 2059 Pravastatin Sodium 10 MG 2100 12/17 2099 AC PO 01/16 2059 Dextrose/Water 125 ML ASDIR PRN 12/17 1800 CKD IV 01/16 175 Dextrose/Water 250 ML ASDIR PRN 12/17 1800 CKD IV 01/16 175 Glucagon 1 MG ASDIR PRN 12/17 1800 AC IM 01/16 175 Atropine Sulfate 0.5 MG ASDIR PRN 12/17 1200 AC IV 12/18 1158 Sodium Chloride 1,000 ML .[id number] 12/17 1200 AC 12/17 IV 12/17 1839 1404 Sodium Chloride 500 ML ASDIR PRN 12/17 1200 AC IV 12/18 1158 Adenosine 0 .STK-MED ONE 12/17 1052 DC IV Sodium Chloride 50 ML .STK-MED ONE 12/17 1052 D C IV Iopamidol 100 ML .STK-MED ONE 12/17 1034 DC 10 IV 12/17 1035 1034 Fentanyl Citrate 0 .STK-MED ONE 12/17 1019 DC 1 005 .ROUTE 1030 Midazolam HCl 0 .STK-MED ONE 12/17 1019 DC 10 05 .ROUTE 1030 Heparin Sodium/ 500 ML .STK-MED ONE 12/17 0949 DC 10/05 Sodium Chloride IV 1030 Heparin Sodium 0 .STK-MED ONE 12/17 0940 DC 10 05 .ROUTE 1030 Heparin Sodium/ 1,000 ML .STK-MED ONE 12/17 094 0 DC 1005 Sodium Chloride IV 1030 Heparin Sodium/ 500 ML .STK-MED ONE 12/17 0840 DC 1005 Sodium Chloride IV 1030 Lidocaine HCl 0 .STK-MED ONE 12/17 0840 DC 10/0 5 .ROUTE 1030 Nitroglycerin/ 250 ML .STK-MED ONE 12/17 0840 D C 10/05 Dextrose IV 1030 Verapamil HCl 0 .STK-MED ONE 12/17 0840 DC 10/0 5 IV 1030 Home Medications: RIVAROXABAN (XARELTO) 20 MG PO DAILY amLODIPine (NORVASC) 5 MG PO DAILY cloNIDine (CATAPRES) 0.3 MG PO BID DOXAZOSIN (CARDURA) LISINOPRIL (ZESTRIL) OLMESARTAN (BENICAR) 40 MG PO DAILY PRAVASTATIN (PRAVACHOL) FUROSEMIDE (LASIX) 10 MG PO DAILY METOLAZONE (ZAROXOLYN) 10 MG PO DAILY POTASSIUM CHLORIDE ER (MICRO-K) 10 MEQ PO DAILY OMEPRAZOLE ER 20 MG PO DAILY GLIMEPIRIDE (AMARYL) 4 MG PO DAILY INSULIN DETEMIR (LEVEMIR FlexTouch (15mL)) 50 UN ITS SUBQ BID INSULIN LISPRO (HumaLOG CARTRIDGE (15mL)) 0 UNIT S SUBQ TID LIRAGLUTIDE (VICTOZA (6mL)) 1.8 MG SUBQ DAILY metFORMIN (GLUCOPHAGE) 1,000 MG PO BID ADALIMUMAB + SUPPLIES (HUMIRA PREFILLED PEN) 40 MG SUBQ Q14D azaTHIOprine (IMURAN) 50 MG PO DAILY [facility]: [facility] Current Medications Current medication review: Home Medications: RIVAROXABAN (XARELTO) 20 MG PO DAILY amLODIPine (NORVASC) 5 MG PO DAILY cloNIDine (CATAPRES) 0.3 MG PO BID DOXAZOSIN (CARDURA) LISINOPRIL (ZESTRIL) OLMESARTAN (BENICAR) 40 MG PO DAILY PRAVASTATIN (PRAVACHOL) FUROSEMIDE (LASIX) 10 MG PO DAILY METOLAZONE (ZAROXOLYN) 10 MG PO DAILY POTASSIUM CHLORIDE ER (MICRO-K) 10 MEQ PO DAILY OMEPRAZOLE ER 20 MG PO DAILY GLIMEPIRIDE (AMARYL) 4 MG PO DAILY INSULIN DETEMIR (LEVEMIR FlexTouch (15mL)) 50 UN ITS SUBQ BID INSULIN LISPRO (HumaLOG CARTRIDGE (15mL)) 0 UNIT S SUBQ TID LIRAGLUTIDE (VICTOZA (6mL)) 1.8 MG SUBQ DAILY metFORMIN (GLUCOPHAGE) 1,000 MG PO BID ADALIMUMAB + SUPPLIES (HUMIRA PREFILLED PEN) 40 MG SUBQ Q14D azaTHIOprine (IMURAN) 50 MG PO DAILY I attest that the foregoing medication list in t he medical record is true, accurate, and complete to the best of my knowled ge. Electronically Signed by Meryl Rosa MD on 2 at [facility] #:[id number] END OF REPORT 2021-12-22 11:31:00-00:00 [facility]L [facility] Prog.Note-Nutrition REPORT#:[id number] REPORT STATUS: Signed DATE:12/22/21 TIME: 1131 PATIENT: SAÚL GILES UNIT #: [id number] ROOM/BED: [place] [id number] : 43 AGE: 76 SEX: F ATTEND: Leah More MD ADM AUTHOR: Vanessa Morales [facility] * ALL edits or amendments must be made on the [employer] document * Nutrition Support Nutrition Support Medication therapy: adult PN Indication for treatment: Alberto using an "X" for all appropriate indicatio ns: Evidence of PCM and enteral nutrition (EN) not feasible Malnourished surgical patient able to have PN 5 -7 days preoperatively and EN not feasible PN for anticipated need of >5-7 days and EN not feasible X Supplemental PN if unable to meet EN goal with in 7-10 days Other: Current therapy: Adult Parenteral Nutrition Custom Fomulation for Central Administration Day of therapy: Day 2 Weight: Actual weight (kg): 125.3 Vital signs/I O: 24 hour I O ending at 0700: 12/22 0700 12/21 1900 Intake Total 730.00 1506.00 Output Total 925 840 Balance -195.00 666.00 Intake, IV 480.00 786.00 Intake, Oral 250 720 Output, Chest 160 270 Tube Drainage Output, Urine 765 570 Patient 125.3 kg Weight Weight Standing scale Measurement Method Vital Signs: Date Time Temp Pulse Resp B/P B/P Pulse O2 O2 Flow FiO2 Mean Ox Delivery Rate 12/22 929 36.5 71 28 136/61 88 90 12/22 914 36.5 69 15 137/63 91 94 12/22 899 36.4 72 31 126/61 88 91 12/23 0745 36.4 71 26 148/60 92 93 12/23 0738 36.4 81 80 93 12/23 0730 36.5 76 51 152/69 99 93 12/22 814 36.5 72 26 147/65 93 91 12/23 0714 72 20 91 60 70 10/10 0800 High flow 60 80 nasal cannula 10/10 0800 36.5 75 28 150/67 97 90 10/10 0746 36.5 71 32 149/66 95 89 10/10 0745 36.5 73 30 88 10/10 0730 36.6 75 19 156/64 92 92 10/10 0715 36.6 72 31 161/71 102 90 10/10 0700 36.6 74 28 157/70 101 90 10/10 0327 75 95 60 10/10 0319 36.9 73 26 109/85 96 84 10/10 0315 36.8 73 30 157/65 93 90 10/10 0238 36.8 75 27 122/83 101 95 10/10 0231 111/79 94 10/10 0231 36.8 73 29 155/67 97 91 10/10 0230 36.8 72 27 105/76 90 89 10/10 0215 110/82 96 10/10 0215 36.8 72 25 166/70 100 95 10/10 0200 109/76 92 10/10 0200 36.8 69 30 175/72 104 93 10/10 0145 81/81 81 10/10 0145 36.8 73 28 169/72 104 94 10/10 0134 95/74 86 10/10 0134 36.8 75 30 174/74 106 94 10/10 0131 89/73 83 10/10 0130 36.8 75 30 101/75 90 94 10/10 0115 87/73 81 10/10 0115 36.7 72 28 161/70 101 98 10/10 0100 121/116 119 10/10 0100 36.8 75 28 161/71 102 96 10/10 0045 140/77 102 10/10 0045 36.8 73 26 158/74 107 96 10/10 0030 132/85 103 10/10 0030 36.8 75 25 154/68 98 95 10/10 0015 167/69 97 10/10 0015 36.7 75 29 162/72 104 95 10/10 0010 195/70 101 10/10 0010 36.8 76 26 152/67 96 95 10/10 0009 76 93 60 10/10 0000 174/69 99 10/10 0000 36.6 75 26 159/70 100 94 10/09 2345 167/67 93 10/09 2345 36.7 75 23 149/69 99 96 10/ 2330 167/66 93 10/ 2330 36.8 75 21 134/63 91 95 10/ 2315 169/67 95 10/ 2315 36.7 76 25 149/66 95 95 10/ 2300 166/66 92 10/ 2300 36.7 76 25 147/67 97 94 10/ 2245 168/67 93 12/21 2245 36.7 75 28 141/63 91 94 10/ 2230 168/63 90 10/ 2230 36.7 72 26 139/64 92 87 10/ 2215 158/61 85 12/21 2215 36.7 75 25 132/60 87 92 12/21 2208 150/60 83 12/21 2208 36.7 72 25 128/61 88 91 12/21 2200 36.7 72 29 113/61 78 92 12/21 2145 36.7 69 33 172/67 97 93 12/21 2130 36.7 69 27 165/61 87 90 12/215 36.7 69 27 179/59 86 87 12/21 2100 36.7 72 26 147/60 85 96 12/21 2044 36.7 69 26 138/53 74 96 12/212 69 96 60 12/22 2031 96 BiPAP 60 12/21 2029 36.7 69 27 142/54 77 92 12/21 2014 36.7 73 25 151/56 79 97 12/22 1999 BiPAP 60 12/22 1999 36.7 70 27 149/53 75 93 12/21 1945 36.8 69 20 151/52 75 95 12/21 1930 36.8 69 14 145/51 72 96 12/21 1915 36.8 69 15 143/52 73 96 12/21 1900 36.8 71 28 165/56 82 94 12/21 1824 36.8 69 19 156/55 79 96 12/21 1815 36.9 70 21 155/55 79 96 / 1800 36.9 72 15 139/49 70 98 10/ 1745 37.0 73 17 139/49 70 97 / 1730 37.1 72 17 121/43 61 96 12/21 1647 37.2 72 141/46 68 98 / 1645 37.2 76 37 131/46 68 98 10/ 1630 37.2 69 152/46 70 98 10/ 1615 37.2 80 180/54 91 97 10 1614 37.2 78 177/44 87 99 12/21 1609 84 20 98 60 100 12/21 1600 37.2 75 172/54 83 100 10/ 1545 37.2 71 26 172/55 85 99 10/ 1530 37.2 70 31 171/54 84 99 12/21 1515 37.2 72 26 170/53 84 100 10/ 1500 70 27 162/48 75 97 10/ 1445 69 25 172/56 88 98 10/ 1430 75 33 159/60 90 97 10/ 1415 69 17 158/56 84 97 10/ 1400 75 25 152/58 82 98 10 1345 76 25 154/57 82 96 12/21 1335 75 97 60 10/ 1330 69 26 148/53 77 96 12/21 1315 72 25 155/83 100 99 12/21 1300 72 26 147/83 98 98 12/21 1256 72 25 140/81 94 98 12/21 1245 71 29 144/88 100 90 12/21 1215 71 28 166/63 89 93 12/21 1200 37.1 73 30 141/76 95 92 12/21 1145 37.1 74 30 135/57 80 92 Labs: Laboratory Tests 12/22 12/21 12/20 12/20 12/20 0430 0214 2120 1155 0315 Chemistry Sodium (134 - 147 mEq/L) 143 145 145 144 144 Potassium (3.4 - 5.0 mEq/L) 4.0 4.3 4.4 4.6 4.8 Chloride (100 - 108 mEq/L) 106 107 108 109 H 10 8 Carbon Dioxide (21 - 33 mEq/l) 27 26 27 27 28 BUN (7 - 18 mg/dL) 33 H 30 H 29 H 26 H 21 H Creatinine (0.6 - 1.3 mg/dL) 1.3 1.6 H 1.8 H 1. 7 H 1.4 H Glucose (70 - 110 mg/dL) 219 H 117 H 130 H 182 H 179 H 12/19 12/19 2245 1257 Chemistry Sodium (134 - 147 mEq/L) 146 147 Potassium (3.4 - 5.0 mEq/L) 4.8 3.6 Chloride (100 - 108 mEq/L) 108 109 H Carbon Dioxide (21 - 33 mEq/l) 29 28 BUN (7 - 18 mg/dL) 21 H 18 Creatinine (0.6 - 1.3 mg/dL) 1.1 0.8 Glucose (70 - 110 mg/dL) 186 H 153 H Laboratory Tests Test Result Date Time Chemistry Calcium (8.0 - 10.5 mg/dL) 10.4 12/22 0430 Phosphorus (2.5 - 4.9 MG/DL) 3.4 12/22 0430 Magnesium (1.80 - 2.40 mg/dL) 2.20 12/22 0430 Albumin (3.4 - 5.0 g/dL) 4.30 12/22 0430 Triglycerides: Test Result Date Time Chemistry Triglycerides (40 - 150 mg/dL) 67 12/18 0310 Laboratory Tests 12/22 12/22 12/22 12/22 12/21 0650 0433 0005 0005 2107 Chemistry POC Glucose (70 - 110 MG/DL) 211 H 178 H POC Glucose (mg/dL) (70 - 110 MG/DL) 224 H 196 H 200 H 12/21 12/21 12/21 12/21 1611 1603 1444 1224 Chemistry POC Glucose (70 - 110 MG/DL) 178 H POC Glucose (mg/dL) (70 - 110 MG/DL) 175 H 193 H 139 H Diet: regular Calorie needs: Pending assembler gold frame assessment Protein needs: Pending assembler gold frame assessment IV access: Right IJ CVC Treatment plan: consult, change regimen Regimen: CAPS Custom Formulation Rate: 35 mL/hr (840 mL/day) Total kcal: 1064 kcal/day Amino acids 80 g/day Dextrose 160 g/day Lipids 20 g/day Sodium chloride 30 mEq/day Sodium acetate 30 mEq/day Magnesium sulfate mEq/day Calcium gluconate mEq/day Potassium chloride mEq/day Potassium acetate mEq/day Potassium phosphate mmol/day Sodium phosphate -- mmol/day MVI 10 mL daily Trace elements 1 mL daily Insulin, regular -- units Orders outside of TPN: Furosemide 40 mg IV q12h Insulin glargine 10 units SQ q12h Medium-intensity sliding scale insulin AC HS Ondansetron 4 mg IV q6h PRN (last administered 1 at 1229) Pantoprazole 40 mg PO daily 12/21: Furosemide 60 mg IV x1 Rationale: HPI: This 76-year-old female , from [facility], with past medical history of macular degeneration, obe sity, obstructive sleep apnea (CPAP at home), former smoker, hypertension, hyperl ipidemia, diabetes, Crohn's disease, chronic atrial fibrillation (status post 3 ablations in the past and on Xarelto), and pacemaker placement who had a recent admission to the hosp ital with heart failure symptoms. She has been admitted to the hospital for elective heart cath. Coronary angiogram showed severe multivessel cor onary artery disease not suitable for percutaneous intervention. The patient is now status post CABG x1 and MVR on 12/[address] Romero. Due to the pa tient s dependence on BiPAP postoperatively, Dr. Romero would like to initiate TPN to meet this patient s nutritional needs. Pharmacy has been consulted for the dosing and monitoring of TPN. 12/22 Assessment and Plan Patient with regular diet. Per discussion on rou nds with Dr. Romero, if the patient is consuming an adequate amount of Ensur e protein shakes today, can discontinue TPN tomorrow. Macronutrients: Will initiate TPN at 35 mL/hr (840 mL/day).Will increase amino acids and dextrose to 80 g/d ay and 170 g/day, respectively. Will initiate lipids 20 g/day. This will provide 1064 kcal per day. W ill advance TPN in the coming days as tolerated. Triglycerides 67 on ; monitor at least weekly while on TPN. Electrolytes: All electrolyt es are within normal limits. Electrolytes in TPN as outlined above. Supplement a dditional electrolytes outside of TPN as indicated. Renal I/O: BUN/SCr 33/1.3 (BUN trending up, SCr now trending down). Urine output with 1335 mL and chest tube outpu t with 430 mL documented over the past 24 hours. Will concentrate TPN as much a s possible given recent cardiovascular surgery and need for frequent diuresis. The patient will receive 840 mL/day of fluids from TPN and 100 mL/day from lipids. Hepatic: Tbili 0.50, AST/ALT 22/13, Alk phos 57, and albumin 4.30 on 12/22; monitor at least weekly while on TPN Glycemic Control: Serum bloo d glucose was 219 mg/dL this morning. Xrxaz-ea-bxbg glucose has ranged 113-224 mg/dL over the past 2 4 hours. 14 units of sliding scale insulin administered over the past 24 hours. Will not add insulin to TPN at this time, but will recom mend the addition of low-dose long acting insulin as the patient was taking insulin detemir 50 units SQ BID outpatient. at 1134 RPT #:[id number] END OF REPORT 2021-12-22 10:54:00-00:00 [facility] Progress Note REPORT#:[id number] REPORT STATUS: Signed DATE:12/22/21 TIME: 1054 PATIENT: SAÚL GILES UNIT #: [id number] ROOM/BED: [place] [address] : 43 AGE: 76 SEX: F ATTEND: Leah More MD ADM AUTHOR: Suki Fuhcs MD * ALL edits or amendments must be made on the [employer]/computer document * Subjective Chief complaint: chest pain HPI: This is a 76-year-old female who has past medica l history of hypertension, diabetes, coronary artery disease, atrial fibril lation who presented with worsening shortness of breath and on further wor k-up was 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 She was with normal kidney function prior to surgery and afte r her surgery she began to develop oliguria. Her procedure was done without any complications but after her surgery she did require pressor support for hypotension and she was intubated for respiratory acidosis and hypoxia a nd she was treated with vancomycin for infection treatment. When she was seen this morning she continued to have hypotension and her heart rate was paced by her permanent pacemaker and her urine outp ut was 20 to 30/h. Her family at bedside denied any history of kidney disease, kidney stone, chronic NSAID use or any urinary complaints. They also endorse that her b lood pressure and diabetes were mostly controlled. 10 Appearing comfortable, not in any distress,on ox ygen through nasal canula. 10 Appearing comfortable, not in any distress,on ox ygen through nasal canula. Objective General VS/I O: Vital Signs: Date Time Temp Pulse Resp B/P B/P Pulse O2 O2 F low FiO2 Mean Ox Delivery Rate 12/22 1800 36.3 69 25 145/65 93 100 10/ 1700 36.2 69 25 132/61 88 95 10/ 1600 36.1 75 8 130/60 86 94 12/22 1501 70 94 50 10/ 1500 36.1 69 23 137/61 88 93 12/22 1442 70 16 93 60 72 10 1415 36.3 72 12 93 10/ 1400 36.3 72 19 119/58 83 90 12/22 1349 36.4 72 16 92 10 1345 36.4 72 19 117/58 82 93 12/22 1330 36.4 72 24 109/55 79 94 12/22 1315 36.5 72 13 129/60 87 93 12/22 1300 36.6 81 33 143/76 102 92 12/22 1245 81 16 94 60 72 12/22 1245 36.6 69 23 137/75 99 93 12/22 1235 36.6 72 20 145/67 96 90 12/22 1230 76 35 / 1218 36.6 72 24 128/76 94 91 12/22 1215 36.6 76 25 91 12/22 1201 36.6 46 22 149/117 130 91 / 1200 36.6 41 24 91 10/ 1145 36.5 69 22 141/84 106 93 / 1130 36.5 72 26 125/64 87 91 12/22 1115 36.5 69 22 121/56 81 92 10/10 1100 36.5 72 26 138/61 88 92 10/10 1045 36.5 73 21 132/60 86 91 10/10 1031 36.5 71 13 130/58 83 91 10/10 1030 36.5 71 15 91 10/10 1015 36.5 75 23 135/61 88 90 10/10 1000 36.5 73 27 130/58 84 91 10/10 0945 36.5 73 30 142/62 89 89 10/10 0930 36.5 71 28 136/61 88 90 10/10 0915 36.5 69 15 137/63 91 94 10/10 0900 36.4 72 31 126/61 88 91 10/10 0845 36.4 71 26 148/60 92 93 10/10 0838 36.4 81 80 93 10/10 0830 36.5 76 51 152/69 99 93 10/10 0815 36.5 72 26 147/65 93 91 10/10 0814 72 20 91 60 70 10/10 0800 High flow 60 80 nasal cannula 10/10 0800 36.5 75 28 150/67 97 90 10/10 0746 36.5 71 32 149/66 95 89 10/10 0745 36.5 73 30 88 10/10 0730 36.6 75 19 156/64 92 92 10/10 0715 36.6 72 31 161/71 102 90 10/10 0700 36.6 74 28 157/70 101 90 10/10 0327 75 95 60 10/10 0319 36.9 73 26 109/85 96 84 10/10 0315 36.8 73 30 157/65 93 90 10/10 0238 36.8 75 27 122/83 101 95 10/10 0231 111/79 94 10/10 0231 36.8 73 29 155/67 97 91 10/10 0230 36.8 72 27 105/76 90 89 10/10 0215 110/82 96 10/10 0215 36.8 72 25 166/70 100 95 10/10 0200 109/76 92 10/10 0200 36.8 69 30 175/72 104 93 10/10 0145 81/81 81 10/10 0145 36.8 73 28 169/72 104 94 10/10 0134 95/74 86 10/10 0134 36.8 75 30 174/74 106 94 10/10 0131 89/73 83 10/10 0130 36.8 75 30 101/75 90 94 10/10 0115 87/73 81 10/10 0115 36.7 72 28 161/70 101 98 10/10 0100 121/116 119 10/10 0100 36.8 75 28 161/71 102 96 10/10 0045 140/77 102 10/10 0045 36.8 73 26 158/74 107 96 10/10 0030 132/85 103 10/10 0030 36.8 75 25 154/68 98 95 10/10 0015 167/69 97 10/10 0015 36.7 75 29 162/72 104 95 10/10 0010 195/70 101 10/10 0010 36.8 76 26 152/67 96 95 12/22 0009 76 93 60 12/22 0000 174/69 99 12/22 0000 36.6 75 26 159/70 100 94 12/21 2345 167/67 93 12/21 234 36.7 75 23 149/69 99 96 12/21 2330 167/66 93 12/21 2330 36.8 75 21 134/63 91 95 12/21 2315 169/67 95 12/21 231 36.7 76 25 149/66 95 95 12/21 2300 166/66 92 12/21 230 36.7 76 25 147/67 97 94 24 hour I O ending at 0700: 12/22 0700 12/21 1900 Intake Total 730.00 1506.00 Output Total 925 840 Balance -195.00 666.00 Intake, IV 480.00 786.00 Intake, Oral 250 720 Output, Chest 160 270 Tube Drainage Output, Urine 765 570 Patient 125.3 kg Weight Weight Standing scale Measurement Method PATIENT WEIGHT: Weight (lb): 276 Weight (oz): 3.83 Weight (kg): 125.300 Physical Exam General appearance: alert, awake, oriented Head/eyes: atraumatic, normocephalic ENT: ET tube Neck: no JVD, no lymphadenopathy Cardiovascular: normal heart sounds, regular rat e and rhythm Respiratory: aerating well, clear to auscultatio n Abdomen: soft, no pulsatile mass Genitourinary: urinary catheter Extremities: pitting edema, no gangrene, no swel ling Treatment Prophylaxis Treatment Prophylaxis Drain(s)/tube(s): Drain(s)/tube(s): chest (x3) Diagnosis, Assessment Plan Free Text A P: This is a 76-year-old female known to have hyper tension, diabetes, atrial fibrillation, s/p permanent pacemaker and histor y of ablation presenting with shortness of breath and found to have multivesse l coronary artery disease therefore she had CABG on December 19 after which she has developed oliguria. Nephrology is following for: 1. Acute kidney injury: Most likely it i s prerenal (cardiorenal), she has been hypotensive postoperatively with require ment for pressor support and inotropic support. Plan is to increase inotropic support or pressor support to bring mean arterial pressure above 65 and give albumin with Lasix to see if it helps him diurese. If he does not respond to higher dose L asix with albumin then I will consider starting him on CRRT to prevent hyper v olemia. 2. Hypervolemia: Plan is to give Lasix a nd if he does not respond to start him on CRRT for extra fluid removal. 3. His electrolytes were all reviewed to be in normal range plan was to monitor and replace as needed. 4. He was receiving vancomycin so plan w as to monitor vancomycin trough levels to prevent ATN. 12/21 1. Acute kidney injury: Most likely it i s prerenal (cardiorenal), she has been hypotensive postoperatively with require ment for pressor support and inotropic support. She responded to Lasix after her blood pressure improved with higher dose vasopressin and she was given albumin. Plan was to continue twice a day Lasix and albumin for hypervolemia. 2. Hypervolemia: Plan is to give Lasix with albu min twice daily and increase dose if needed. 3. His electrolytes were all reviewed to be in normal range plan was to monitor and replace as needed. 4. He was receiving vancomycin so plan w as to monitor vancomycin trough levels to prevent ATN. 12/22 1. Acute kidney injury: Most likely it i s prerenal (cardiorenal), she has been hypotensive postoperatively with require ment for pressor support and inotropic support. She responded to Lasix after her blood pressure improved with higher dose vasopressin and she was given albumin. Plan was to continue Lasix and albumin for hypervolemia.Plan to increase dose t o reach goal of 1 L negative Q12H. 2. Hypervolemia: Plan is to give Lasix with albu min and increase dose if needed. 3. His electrolytes were all reviewed to be in normal range plan was to monitor and replace as needed. 4. He was receiving vancomycin so plan w as to monitor vancomycin trough levels to prevent ATN. Consultants: cardiology, cardiovascular surgery Electronically Signed by Suki Fuchs MD on at 2301 RPT #:[id number] END OF REPORT 2021-12-22 10:43:00-00:[address] [facility] ([facility]) Adult General Consultation REPORT#:[id number] REPORT STATUS: Signed DATE:12/22/21 TIME: 1043 PATIENT: SAÚL GILES UNIT #: [id number] ROOM/BED: [place] [address] : 43 AGE: 76 SEX: F ATTEND: Leah More MD ADM AUTHOR: Herberth Pantoja * ALL edits or amendments must be made on the [employer]/computer document * History of Present Illness Reason for consult: PMR consultation Chief complaint: Weakness post MVR/CABG x1 HPI: 76-year-old female with PMH of macular degeneration, obesity, RONA, hypertension, hyperlipidemia, diabetes, Crohn's disease, chron ic atrial fibrillation, pacemaker placement, cardiac ablation x3 who had a cardiac cath revealing multivessel CAD. Patient had progressive shortness of breath and was brought to [facility] enter CV surgery was consulted and patient had CABG x1 and MVR. Currently she is in CVICU. We have terrance tobias asked to see her in consultation for physical medicine and rehabilit ation evaluation. History - Adult longitudinal Past medical history: Reports: Atrial fibrillation, Diabetes mellitus, Hypertension, Dyslipidemia. Denies: Kidney disease/stones. Additional medical history: Clot degeneration Obstructive sleep apnea Chron's disease Past surgical history: Reports: Pacemaker (SJM). Additional family history: Reviewed and noncontributory Alcohol use: Denies EtOH use Drug use: Denies recreational drugs Smoking status for patients 13 years old or olde r: Never Smoker Medications: Home Medications: Medication Dose/Rte/Freq Days Qty Entered Last Max Daily Dose Reviewed RIVAROXABAN (XARELTO) 20 MG PO DAILY 12/17/21 1 Strength: 20 MG TAB 0800 0801 amLODIPine (NORVASC) 5 MG PO DAILY 12/17/2108/03 Strength: 5 MG TAB 0805 0812 cloNIDine (CATAPRES) 0.3 MG PO BID 12/17/2108/03 Strength: 0.3 MG TAB 0805 0812 DOXAZOSIN (CARDURA) 12/17/21 12/17/21 Strength: 4 MG TAB 0805 0812 LISINOPRIL (ZESTRIL) 12/17/21 12/17/21 Strength: 40 MG TAB 0806 0812 OLMESARTAN (BENICAR) 40 MG PO DAILY 12/17/21 Strength: 40 MG TAB 0806 0812 PRAVASTATIN (PRAVACHOL) 12/17/21 12/17/21 Strength: 10 MG TAB 0806 0812 FUROSEMIDE (LASIX) 10 MG PO DAILY 12/17/2108/03 Strength: 20 MG TAB 0807 0812 METOLAZONE (ZAROXOLYN) 10 MG PO DAILY 12/17/21 12/17/21 Strength: 10 MG TAB 0808 0812 POTASSIUM CHLORIDE ER 10 MEQ PO DAILY 12/17/21 12/17/21 (MICRO-K) 08 08 Strength: 10 MEQ CAP.SA OMEPRAZOLE ER 20 MG PO DAILY 12/17/21 12/17/21 Strength: 20 MG CAP. 08 0812 GLIMEPIRIDE (AMARYL) 4 MG PO DAILY 12/17/2108/03 Strength: 4 MG TAB 0809 0812 INSULIN DETEMIR 50 UNITS SUBQ BID 12/17/2108/03 (LEVEMIR FlexTouch (15mL)) 08 08 Strength: 100 UNIT/ML (3 ML) PEN.INJCTR INSULIN LISPRO 0 UNITS SUBQ TID 12/17/21 (HumaLOG CARTRIDGE 0811 0812 (15mL)) Strength: 100 UNIT/ML CARTRIDGE LIRAGLUTIDE 1.8 MG SUBQ DAILY 12/17/21 12/17/21 (VICTOZA (6mL)) 810 08 Strength: 0.6 MG/0.1 ML (18 MG/3 ML) PEN.INJCTR metFORMIN (GLUCOPHAGE) 1,000 MG PO BID 12/17/21 12/17/21 Strength: 1,000 MG TAB 0812 0812 ADALIMUMAB + SUPPLIES 40 MG SUBQ Q14D 12/17/21 12/17/21 (HUMIRA PREFILLED PEN) 08 0812 Strength: 40 MG/0.8 ML KIT azaTHIOprine (IMURAN) 50 MG PO DAILY 12/17/21 1 Strength: 50 MG TAB 0812 0812 Current Hospital Medications: Anti-Infective Agents Sig/Fabby Start time Last Medication Dose Route Stop Time Status Admin Ceftriaxone Sodium 1,000 MG Q24H 12/18 1545 AC 12/21 (ROCEPHIN 1000MG IV 12/25 3124 1522 VIAL) Sodium Chloride 10 ML (SODIUM CHLORIDE) Vancomycin HCl 1,750 MG PREOP ONCALL 12/18 0500 CKD (VANCOMYCIN HCL) IV 12/25 0459 Sodium Chloride 500 ML (NS 0.9%) Autonomic Drugs Sig/Fabby Start time Last Medication Dose Route Stop Time Status Admin Albuterol/Ipratropium 3 ML RTQ6H 12/21 1530 AC 12/22 (DUONEB) NEB 01/20 1529 0814 Dopamine HCl/Dextrose 250 ML ASDIR 12/20 0800 A C 12/20 (DOPamine 400MG/D5W IV 01/19 075 0829 250ML) Epinephrine 5 MG ASDIR 12/19 111 AC (ADRENALIN CHLORIDE) IV 01/18 111 Dextrose/Water 245 ML (DEXTROSE 5% WATER) Norepinephrine 250 ML TITRATE 12/19 111 AC Bitartrate IV 01/18 111 (NOREPINEPHRINE 8 MG/ NS 250 ML) Blood Derivatives Sig/Fabby Start time Last Medication Dose Route Stop Time Status Admin Albumin Human 12.5 GM Q12H 12/21 1300 AC 12/22 (ALBUMINAR 5% 12.5GM/ IV 12/23 010 0100 250ML) Blood Formation,Coagulation Sig/Fabby Start time Last Medication Dose Route Stop Time Status Admin Ferrous Sulfate 325 MG DAILY 12/22 899 AC (FERROUS SULFATE) PO 01/21 859 Clopidogrel Bisulfate 75 MG DAILY 12/20 899 AC 12/22 (Plavix) PO 01/19 0859 0803 Cardiovascular Drugs Sig/Fabby Start time Last Medication Dose Route Stop Time Status Admin Metoprolol Tartrate 12.5 MG Q12HR 12/19 2099 AC 12/22 (LOPRESSOR) PO 01/18 2059 0803 Milrinone Lactate/ 100 ML ASDIR 12/19 2030 CKD 12/20 Dextrose IV 01/18 2029 044 (MILRINONE 20MG/D5W 100ML) Amiodarone HCl 200 MG TID 12/19 1500 AC 12/22 (CORDARONE) PO 01/18 1459 0803 Nitroglycerin/ 250 ML ASDIR 12/19 111 AC Dextrose IV 01/18 111 (NITROGLYCERIN 50,000MCG/D5W 250ML) Atorvastatin Calcium 40 MG 2100 12/18 2100 AC 1 (LIPITOR) PO 01/17 2059 214 Amlodipine Besylate 5 MG DAILY 12/18 899 AC (NORVASC) PO 01/17 0859 Central Nervous System Agents Sig/Fabby Start time Last Medication Dose Route Stop Time Status Admin Aspirin 81 MG DAILY 12/19 1709 AC 12/22 (ASPIRIN) PO 01/18 1708 0803 Gabapentin 200 MG BID 9A 5P 12/19 1700 AC 12/20 (NEURONTIN) PO 12/24 0901 0839 Tramadol HCl 25 MG Q4H PRN PRN 12/19 1230 AC (ULTRAM) PO 12/24 1229 0225 Tramadol HCl 50 MG Q4H PRN PRN 12/19 1230 AC (ULTRAM) PO 12/24 1229 0714 Acetaminophen 650 MG Q4H PRN PRN 12/19 1115 AC 12/21 (TYLENOL) PO 01/18 111 0005 Acetaminophen 650 MG Q4H PRN PRN 12/19 111 AC (TYLENOL) RECTAL 01/18 111 Magnesium Sulfate 100 ML ASDIR PRN 12/19 1115 A C (MAGNESIUM SULFATE IV 01/18 1114 4GM/SWFI 100ML) Magnesium Sulfate 50 ML ASDIR PRN 12/19 111 AC (MAGNESIUM SULFATE IV 01/18 1114 2GM/SWFI 50ML) Magnesium Sulfate/ 100 ML ASDIR PRN 12/19 1115 AC 12/22 Dextrose IV 01/18 111 0656 (MAGNESIUM SULFATE 1GM/D5W 100ML) Electrolytic, Caloric, And Nataliia Sig/Fabby Start time Last Medication Dose Route Stop Time Status Admin Furosemide 40 MG Q8H 12/22 1700 AC (LASIX 40 mg/4 mL IV 01/21 1659 INJECTION) Amino Acids/ 840 ML 2200 12/21 2200 AC 12/21 Electrolytes/Dextrose IV 01/20 2159 2259 (TPN ADULT- CENTRAL 1000ML) Furosemide 40 MG Q12H 12/21 1300 DC 12/22 (LASIX 40 mg/4 mL IV 01/20 1259 0100 INJECTION) Dextrose/Water 1,000 ML ASDIR PRN 12/21 1145 AC (Dextrose 10% 1,000 IV 01/20 1144 mL) Calcium Chloride 1 GM ASDIR PRN 12/19 1115 AC (CALCIUM CHLORIDE) IV 01/18 111 Dextrose/Water 125 ML ASDIR PRN 12/19 1115 CKD (DEXTROSE 10% IN IV 01/18 111 WATER) Dextrose/Water 250 ML ASDIR PRN 12/19 1115 CKD (DEXTROSE 10% IN IV 01/18 111 WATER) Potassium Chloride 100 ML ASDIR PRN 12/19 1115 AC (KCL 20MEQ/SWFI IV 01/18 111 100ML) Sodium Bicarbonate 50 MEQ ASDIR PRN 12/19 1115 AC (SODIUM BICARBONATE) IV 01/18 1114 Sodium Chloride 1,000 ML .Q20H 12/19 1115 AC 1 0 (SODIUM CHLORIDE IV 01/18 111 0242 0.9%) Sodium Chloride 250 ML Q24H 12/19 1115 AC (SODIUM CHLORIDE IV 01/18 111 0.9%) Gastrointestinal Drugs Sig/Fabby Start time Last Medication Dose Route Stop Time Status Admin Bisacodyl 10 MG ONCE PRN 12/21 1200 AC (DULCOLAX) RECTAL 01/20 1159 Magnesium Hydroxide 30 ML ONCE PRN 12/21 1200 D C 12/22 (MILK OF MAGNESIA) PO 0802 Polyethylene Glycol 17 GM DAILY 12/20 09 AC 12/22 (MIRALAX) PO 01/19 0859 0803 Pantoprazole 40 MG DAILY@0600 12/20 0600 AC (PROTONIX) PO 01/19 0559 0714 Docusate Sodium 100 MG BID 12/19 2099 AC 12/22 (COLACE) PO 01/18 205 0803 Sennosides 17.2 MG BEDTIME 12/19 2100 AC 12/21 (Senna Lax 8.6 MG PO 01/18 2059 2144 TABLET) Ondansetron HCl 4 MG Q6H PRN PRN 12/18 1145 AC 12/22 (ZOFRAN) IV 01/17 1144 0950 Hormones And Synthetic Substit Sig/Fabby Start time Last Medication Dose Route Stop Time Status Admin Insulin Human Lispro 0 Q6HR 12/21 1200 AC 12/22 (HUMALOG) SUBQ 01/20 1159 0656 Insulin Human Lispro 0 AC HS 12/21 1130 DC (HUMALOG) SUBQ 01/20 1129 Vasopressin 100 ML ASDIR 12/19 2030 CKD 12/20 (VASOSTRICT 20 Unit/ IV 01/18 2029 2042 NS 100ML) Glucagon 1 MG ASDIR PRN 12/19 1115 AC (GLUCAGON) IM 01/18 1114 Respiratory Tract Agents Sig/Fabby Start time Last Medication Dose Route Stop Time Status Admin Acetylcysteine 200 MG RTQ6H 12/21 1530 AC 12/22 (MUCOMYST FOR RT) NEB 01/20 1529 0814 Skin And Mucous Membrane Agent Sig/Fbaby Start time Last Medication Dose Route Stop Time Status Admin Mupirocin 1 APPLIC BID 12/19 1138 AC 12/22 (BACTROBAN 2% 22 GM NASAL 12/23 210 0804 OINTMENT) Vitamins Sig/Fabby Start time Last Medication Dose Route Stop Time Status Admin Cyanocobalamin 500 MCG DAILY 12/22 09 AC (Vitamin B-12 500 PO 01/21 0859 mcg tab) Other Sig/Fabby Start time Last Medication Dose Route Stop Time Status Admin Miscellaneous 1 EACH ASDIR 12/21 1115 AC Information IV 01/20 111 (TPN (Central) PHARMACY TO DOSE) Allergies: Coded Allergies: ciprofloxacin (From CIPRO) (Severe, JOINT PAIN 0 12/12/21) morphine (Severe, RASH, SWELLING 12/12/21) Review of Systems Constitutional: fatigue, generalized weakness. Respiratory: Reports: SOB. Musculoskeletal: extremity swelling. All systems rev neg: except as marked Objective VS/I O: Last Documented: Result Date Time Pulse Ox 90 12/22 929 B/P 136/61 12/22 929 B/P Mean 88 12/22 929 Temp 97.7 12/22 929 Pulse 71 12/22 929 Resp 28 12/22 929 FiO2 80 12/23 799 O2 Delivery High flow nasal cannula 12/23 799 O2 Flow Rate 60 12/23 799 24 hour I O ending at 0700: 12/22 0700 12/21 1900 Intake Total 730.00 1506.00 Output Total 925 840 Balance -195.00 666.00 Intake, IV 480.00 786.00 Intake, Oral 250 720 Output, Chest 160 270 Tube Drainage Output, Urine 765 570 Patient 276 lb Weight Weight Standing scale Measurement Method PATIENT WEIGHT: Weight (lb): 276 Weight (oz): 3.83 Weight (kg): 125.300 General appearance: obese, alert, awake, no acut e distress Head/Eyes: atraumatic, clear cornea, EOMI ENT: normal dentition, normal ear left, normal e ar right, normal nose Neck: full range of motion, non-tender, no lymph adenopathy Cardiovascular: normal capillary refill, pedal p ulses present, regular rate rhythm Respiratory: decreased breath sounds, On lokesh f low O2 Abdomen: soft, non-tender, no guarding, no rebou nd Genitourinary: deferred Extremities: edema, no clubbing, no cyanosis Musculoskeletal: normal inspection, no muscle sp asm 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 Skin: intact, surgical incision C/D/I Lymphatics: no lymphadenopathy Psychiatry: normal affect, normal judgment/insig ht Results Findings/Data: Laboratory Tests: 12/22 12/22 12/22 12/22 0650 0433 0430 0430 Blood Gas Puncture Site Art Line O2 Saturation (90 - 100 %) 96.0 ABG pH (7.35 - 7.45) 7.334 L ABG pCO2 (35.0 - 45 mmHg) 55.7 *H ABG pO2 (80 - 100.0 mmHg) 88.6 ABG PO2/FiO2 Ratio (mm/Hg) 147.66 ABG HCO3 (22.0 - 26.0 MMOL/L) 29.7 *H ABG Total CO2 31.4 ABG Base Excess (-4.0 - 4.0 MMOL/L) 3.8 ABG Hematocrit (33.0 - 45.0 %) 25 L ABG Hemoglobin (11.0 - 15.0 G/DL) 8.6 L Sodium (134 - 147 MEQ/L) 145 Potassium (3.4 - 5.0 MEQ/L) 3.7 Chloride (100 - 108 MEQ/L) 106 Ionized Calcium (1.12 - 1.32 MMOL/L) 1.44 H Lactic Acid (0.9 - 1.7 mmol/l) 0.9 Temperature (F) 98.4 O2 Delivery Device BiPAP Vent Rate (/MIN) 25 FiO2 (%) 60 Tidal Volume (ml) 550 Chemistry Sodium (134 - 147 mEq/L) 143 Potassium (3.4 - 5.0 mEq/L) 4.0 Chloride (100 - 108 mEq/L) 106 Carbon Dioxide (21 - 33 mEq/l) 27 Anion Gap (0 - 20) 14 BUN (7 - 18 mg/dL) 33 H Creatinine (0.6 - 1.3 mg/dL) 1.3 POC Creatinine (0.6 - 1.0 mg/dL) 1.3 H Glomerular Filtr Rate (70 - 80) 39.6 L Glucose (70 - 110 mg/dL) 219 H POC Glucose (70 - 110 MG/DL) 211 H POC Glucose (mg/dL) (70 - 110 MG/DL) 224 H Calcium (8.0 - 10.5 mg/dL) 10.4 Phosphorus (2.5 - 4.9 MG/DL) 3.4 Magnesium (1.80 - 2.40 mg/dL) 2.20 Total Bilirubin (0.0 - 1.0 mg/dL) 0.50 Direct Bilirubin (0.0 - 0.30 MG/DL) 0.20 Indirect Bilirubin (MG/DL) 0.30 AST (15 - 37 IUnit/L) 22 ALT (30 - 65 IUnit/L) 13 L Total Alk Phosphatase (20 - 125 IUnit/L) 57 Total Protein (6.4 - 8.2 g/dL) 6.8 Albumin (3.4 - 5.0 g/dL) 4.30 Hematology WBC (4.5 - 11.0 x10 3/uL) 9.0 RBC (3.54 - 5.02 x10 6/uL) 2.32 L Hgb (11.0 - 15.0 g/dL) 8.2 L Hct (33.0 - 45.0 %) 25.3 L MCV (81.0 - 99.0 fL) 109.1 H MCH (27.0 - 33.0 pg) 35.3 H MCHC (33.0 - 37.0 g/dL) 32.4 L RDW (11.5 - 14.5 %) 16.1 H Plt Count (150 - 400 x10 3/uL) 84 L MPV (7.0 - 9.0 fL) 11.9 H Neut % (Auto) (56.0 - 77.0 %) 88.9 H Lymph % (Auto) (14.0 - 32.0 %) 2.6 L Barron % (Auto) (4.8 - 9.0 %) 7.5 Eos % (Auto) (0.3 - 3.7 %) 0.1 L Baso % (Auto) (0.0 - 2.0 %) 0.1 Neut # (Auto) (2.0 - 7.6 x10 3/uL) 7.98 H Lymph # (Auto) (1.0 - 3.8 x10 3/uL) 0.23 L Barron # (Auto) (0.1 - 0.8 x10 3/uL) 0.67 Eos # (Auto) (0.0 - 0.2 x10 3/uL) 0.01 Baso # (Auto) (0.0 - 0.2 x10 3/uL) 0.01 Abs Immat Gran (auto) (0.00 - 0.03 x10 3/uL) 0. 07 H Add Manual Diff NO Immature Gran % (0.0 - 2.0 %) 0.8 Nucleated RBC % (0 - 0 %) 0.2 H Nucleated RBCs # (Man) (0.0 - 0.1 x10 3/uL) 0.0 2 12/22 12/22 12/21 12/21 12/21 0005 0005 2107 1611 1603 Blood Gas Puncture Site Art Line Art Line Art Line O2 Saturation (90 - 100 %) 92.5 90.0 96.0 ABG pH (7.35 - 7.45) 7.330 L 7.306 L 7.282 *L ABG pCO2 (35.0 - 45 mmHg) 51.8 *H 56.1 *H 56.0 *H ABG pO2 (80 - 100.0 mmHg) 69.4 L 64.8 L 92.5 ABG PO2/FiO2 Ratio (mm/Hg) 115.66 108.00 92.50 ABG HCO3 (22.0 - 26.0 MMOL/L) 27.5 H 28.1 *H 26 .5 H ABG Total CO2 29.1 29.8 28.3 ABG Base Excess (-4.0 - 4.0 1.4 1.7 -0.3 MMOL/L) ABG Hematocrit (33.0 - 45.0 %) 24 L 25 L 25 L ABG Hemoglobin (11.0 - 15.0 G/DL) 8.3 L 8.4 L 8 .6 L Martin Test N/A Sodium (134 - 147 MEQ/L) 142 142 144 Potassium (3.4 - 5.0 MEQ/L) 4.1 4.4 4.2 Chloride (100 - 108 MEQ/L) 106 107 108 Ionized Calcium (1.12 - 1.32 1.40 H 1.39 H 1.33 H MMOL/L) Lactic Acid (0.9 - 1.7 mmol/l) 0.8 L 0.8 L 1.0 Temperature (F) 97.7 98.1 98 O2 Delivery Device BiPAP BiPAP Vapotherm Vent Rate (/MIN) 25 25 FiO2 (%) 60 60 100 Tidal Volume (ml) 550 550 Chemistry POC Creatinine (0.6 - 1.0 mg/dL) 1.4 H 1.6 H 1. 5 H POC Glucose (70 - 110 MG/DL) 178 H 178 H POC Glucose (mg/dL) (70 - 110 196 H 200 H 175 H MG/DL) 12/21 12/21 1444 1224 Blood Gas Puncture Site Art Line Art Line O2 Saturation (90 - 100 %) 95.4 73.8 L ABG pH (7.35 - 7.45) 7.310 L 7.227 *L ABG pCO2 (35.0 - 45 mmHg) 52.4 *H 65.9 *H ABG pO2 (80 - 100.0 mmHg) 87.5 47.8 *L ABG PO2/FiO2 Ratio (mm/Hg) 145.83 47.80 ABG HCO3 (22.0 - 26.0 MMOL/L) 26.3 H 27.4 H ABG Total CO2 27.9 29.4 ABG Base Excess (-4.0 - 4.0 MMOL/L) 0.1 -0.2 ABG Hematocrit (33.0 - 45.0 %) 23 L 26 L ABG Hemoglobin (11.0 - 15.0 G/DL) 7.8 L 8.7 L Martin Test N/A N/A Sodium (134 - 147 MEQ/L) 140 143 Potassium (3.4 - 5.0 MEQ/L) 4.2 4.2 Chloride (100 - 108 MEQ/L) 105 106 Ionized Calcium (1.12 - 1.32 MMOL/L) 1.32 1.40 H Lactic Acid (0.9 - 1.7 mmol/l) 0.9 0.8 L Temperature (F) 99 O2 Delivery Device BiPAP Vapotherm FiO2 (%) 60 100 Chemistry POC Creatinine (0.6 - 1.0 mg/dL) 1.6 H 1.7 H POC Glucose (mg/dL) (70 - 110 MG/DL) 193 H 139 H Recent Impressions: ULTRASOUND - US RETROPERITONEAL COM 12/21 1800 Report Impression - Status: SIGNED Entered: 12/21/20211927 IMPRESSION: Limited exam. No sonographic abnormality of the kidneys. Impression By: [email or web address] - Haris Chavez M.D. RADIOLOGY - XR CHEST 1 V 12/22 0635 Report Impression - Status: SIGNED Entered: 12/22/2021 0905 IMPRESSION: 1. Interval worsening pulmonary venous vascular congestion. 2. Interval worsening opacity at the right lung/ right hemithorax likely representing combination of increasing pu lmonary parenchymal opacity at the right mid and lower lung lema a nd increase in right pleural fluid collection layering over the right lung. 3. Interval worsening opacity at the retrocardia c left lower lung field. Impression By: [email or web address] - Ming Gibbs M.D. Diagnosis, Assessment Plan Free Text DxA P Notes Free Text DxA P Notes: Status post CABG x1 status post MVR Generalized weakness Deconditioning Impaired ADLs, mobility, gait postoperative anemia Morbid obesity CAD HLD Crohn's disease Chronic A. fib Hypoxic respiratory failure Plan: Continue PT/OT Out of bed to chair Work on strength, bed mobility, transfers, gait Increase endurance Fall precautions Monitor p.o. intake and nutrition Strict decubitus precautions Monitor anemia Advance therapies as tolerated Steve drain is to be removed today Will eventually need IRF when medically ready. Thank you for referral Electronically Signed by Herberth Pantoja on 1 at 1642 RPT #:[id number] END OF REPORT 2021-12-22 09:35:00-00:00 [facility] Critical Care Progress Note REPORT#:[id number] REPORT STATUS: Signed DATE:12/22/21 TIME: 934 PATIENT: SAÚL GILES UNIT #: [id number] ROOM/BED: [place] [id number] : 43 AGE: 76 SEX: F ATTEND: Leah More MD ADM AUTHOR: Jd Alva MD * ALL edits or amendments must be made on the [facility]/computer document * Subjective Chief complaint: CABG/MVR HPI: 76-year-old morbidly obese f emale with history of HTN, HL, IDDM, smoking, RONA on CPAP and home O2 as needed, macular degeneration , Crohn's disease on immunosuppressant medication s, and chronic Afib s/p ablation and PPM (on Xarelto ), who was admitted recently with heart failure symptoms. Patient underwent elective cardiac cath that s howed severe multivessel coronary artery disease not suitable for percutaneous intervention. 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 She went for surgical revascularization today and preop JORDEN revealed severe mitral regurgitation. After discussing new findings with family, patient underwent MVR (31 M agna valve), CABG x 1 (ROBERTS-LAD), ILAA and pericardectomy on 12/19/2021. Has EF of 45%. Crystalloid 1 L, urine output 700, Cell Saver 700. She is a-paced at [employer]. Surgery went well and patient was transferred to CVICU pos top in a stable surgical condition. She is currently intubated on 2 mics of epine phrine, 2 mics of Levophed and insulin drip. CI 3.0, SvO2 in 60%s, CVP 15 and PAP in 60s. Comments: Diuresing, UOP 810 CTs output 90/0/70 cc tolerating PO intake, on TPN off bipap, Teleflex 60L/70% OOB in the chair CI 2.4, SvO2 58% Objective General VS/I O Last Documented: Result Date Time Pulse Ox 94 10 1600 B/P 130/60 10 1600 B/P Mean 86 10 1600 Temp 97.0 10 1600 Pulse 75 / 1600 Resp 8 12/22 1600 FiO2 50 12/22 1501 O2 Flow Rate 60 12/22 1442 O2 Delivery High flow nasal cannula 12/22 0800 24 hour I O ending at 0700: 12/22 0700 12/21 1900 Intake Total 730.00 1506.00 Output Total 925 840 Balance -195.00 666.00 Intake, IV 480.00 786.00 Intake, Oral 250 720 Output, Chest 160 270 Tube Drainage Output, Urine 765 570 Patient 125.3 kg Weight Weight Standing scale Measurement Method PATIENT WEIGHT: Weight (lb): 276 Weight (oz): 3.83 Weight (kg): 125.300 Medications: Active Meds + DC'd Last 24 Hrs Fat Emulsion (FAT EMULSION 20% (INTRALIPID)) 100 ML 2200 IV Furosemide (LASIX 40 mg/4 mL INJECTION) 40 MG Q8 H IV Insulin Glargine (Lantus/Semglee) 10 UNIT BID [place]IN[place] BQ Cyanocobalamin (Vitamin B-12 500 mcg tab) 500 MC G DAILY PO Ferrous Sulfate (FERROUS SULFATE) 325 MG DAILY P O Amino Acids/Electrolytes/Dextrose (TPN ADULT- CE NTRAL 1000ML) 840 ML 2200 IV Acetylcysteine (MUCOMYST FOR RT) 200 MG RTQ6H NE B Albuterol/Ipratropium (DUONEB) 3 ML RTQ6H NEB Albumin Human (ALBUMINAR 5% 12.5GM/250ML) 12.5 G M Q12H IV Furosemide (LASIX 40 mg/4 mL INJECTION) 40 MG Q1 2H IV (DC) Bisacodyl (DULCOLAX) 10 MG ONCE PRN RECTAL Insulin Human Lispro (HUMALOG) 0 Q6HR SUBQ Magnesium Hydroxide (MILK OF MAGNESIA) 30 ML ONC E PRN PO (DC) Dextrose/Water (Dextrose 10% 1,000 mL) 1,000 ML ASDIR PRN IV Miscellaneous Information (TPN (Central) PHARMAC Y TO DOSE) 1 EACH ASDIR IV Clopidogrel Bisulfate (Plavix) 75 MG DAILY PO Polyethylene Glycol (MIRALAX) 17 GM DAILY PO Dopamine HCl/Dextrose (DOPamine 400MG/D5W 250ML) 250 ML ASDIR IV Pantoprazole (PROTONIX) 40 MG DAILY@0600 PO Docusate Sodium (COLACE) 100 MG BID PO Metoprolol Tartrate (LOPRESSOR) 12.5 MG Q12HR PO Sennosides (Senna Lax 8.6 MG TABLET) 17.2 MG BED TIME PO Milrinone Lactate/Dextrose (MILRINONE 20MG/D5W 1 00ML) 100 ML ASDIR IV ( CKD) Vasopressin (VASOSTRICT 20 Unit/NS 100ML) 100 ML ASDIR IV (CKD) Aspirin (ASPIRIN) 81 MG DAILY PO Gabapentin (NEURONTIN) 200 MG BID 9A 5P PO Amiodarone HCl (CORDARONE) 200 MG TID PO Tramadol HCl (ULTRAM) 25 MG Q4H PRN PRN PO Tramadol HCl (ULTRAM) 50 MG Q4H PRN PRN PO Mupirocin (BACTROBAN 2% 22 GM OINTMENT) 1 APPLIC BID NASAL Acetaminophen (TYLENOL) 650 MG Q4H PRN PRN PO Acetaminophen (TYLENOL) 650 MG Q4H PRN PRN RECTA L Calcium Chloride (CALCIUM CHLORIDE) 1 GM ASDIR P RN IV Dextrose/Water (DEXTROSE 10% IN WATER) 125 ML DIR PRN IV (CKD) Dextrose/Water (DEXTROSE 10% IN WATER) 250 ML DIR PRN IV (CKD) Epinephrine (ADRENALIN CHLORIDE) 5 MG ASDIR IV Dextrose/Water (DEXTROSE 5% WATER) 245 ML Glucagon (GLUCAGON) 1 MG ASDIR PRN IM Magnesium Sulfate (MAGNESIUM SULFATE 4GM/SWFI 10 0ML) 100 ML ASDIR PRN IV Magnesium Sulfate (MAGNESIUM SULFATE 2GM/SWFI 50 ML) 50 ML ASDIR PRN IV Magnesium Sulfate/Dextrose (MAGNESIUM SULFATE 1G M/D5W 100ML) 100 ML ASDIR PRN IV Nitroglycerin/Dextrose (NITROGLYCERIN 50,000MCG/ D5W 250ML) 250 ML ASDIR IV Norepinephrine Bitartrate (NOREPINEPHRINE 8 MG/N S 250 ML) 250 ML TITRATE IV Potassium Chloride (KCL 20MEQ/SWFI 100ML) 100 ML ASDIR PRN IV Sodium Bicarbonate (SODIUM BICARBONATE) 50 MEQ A SDIR PRN IV Sodium Chloride (SODIUM CHLORIDE 0.9%) 1,000 ML .Q20H IV Sodium Chloride (SODIUM CHLORIDE 0.9%) 250 ML Q2 4H IV Atorvastatin Calcium (LIPITOR) 40 MG 2100 PO Ceftriaxone Sodium (ROCEPHIN 1000MG VIAL) 1,000 MG Q24H IV (DC) Sodium Chloride (SODIUM CHLORIDE) 10 ML Ondansetron HCl (ZOFRAN) 4 MG Q6H PRN PRN IV Amlodipine Besylate (NORVASC) 5 MG DAILY PO (DC) Vancomycin HCl (VANCOMYCIN HCL) 1,750 MG PREOP ONCALL IV (CKD) Sodium Chloride (NS 0.9%) 500 ML Results Findings/data: Laboratory Tests 12/22 12/22 12/22 9572 6147 3112 Blood Gas Puncture Site Central Line Central Line Art Jennifer e O2 Saturation (90 - 100 %) 96.0 ABG pH (7.35 - 7.45) 7.334 L ABG pCO2 (35.0 - 45 mmHg) 55.7 *H ABG pO2 (80 - 100.0 mmHg) 88.6 ABG PO2/FiO2 Ratio (mm/Hg) 147.66 ABG HCO3 (22.0 - 26.0 MMOL/L) 29.7 *H ABG Total CO2 31.4 ABG Base Excess (-4.0 - 4.0 MMOL/L) 3.8 ABG Hematocrit (33.0 - 45.0 %) 35 24 L 25 L ABG Hemoglobin (11.0 - 15.0 G/DL) 11.8 8.1 L 8 .6 L Martin Test N/A N/A VBG pH (7.33 - 7.45) 7.282 L 7.226 L VBG pCO2 (43 - 47 mmHg) 61.7 *H 74.1 *H VBG pO2 (10 - 50 mmHG) 37.2 36.8 VBG HCO3 (22 - 27 MMOL/L) 29.3 H 30.9 H POC VBG Total CO2 31.2 33.2 VBG O2 Saturation (60 - 80 %) 63.2 58.2 L VBG Base Excess (-4.0 - 4.0 MMOL/L) 2.5 3.2 VBG Temperature (F) 98 98 Sodium (134 - 147 MEQ/L) 142 143 145 Potassium (3.4 - 5.0 MEQ/L) 6.2 *H 3.6 3.7 Chloride (100 - 108 MEQ/L) 106 103 106 Ionized Calcium (1.12 - 1.32 MMOL/L) 1.35 H 1. 35 H 1.44 H Lactic Acid (0.9 - 1.7 mmol/l) 0.7 L 0.6 L 0.9 Temperature (F) 98.4 Respiration Rate (/min) 20 O2 Delivery Device BiPAP Vapotherm BiPAP Vent Mode BIVENT Vent Rate (/MIN) 25 FiO2 (%) 40 60 60 Tidal Volume (ml) 550 550 12/22 12/21 0005 2107 Blood Gas Puncture Site Art Line Art Line O2 Saturation (90 - 100 %) 92.5 90.0 ABG pH (7.35 - 7.45) 7.330 L 7.306 L ABG pCO2 (35.0 - 45 mmHg) 51.8 *H 56.1 *H ABG pO2 (80 - 100.0 mmHg) 69.4 L 64.8 L ABG PO2/FiO2 Ratio (mm/Hg) 115.66 108.00 ABG HCO3 (22.0 - 26.0 MMOL/L) 27.5 H 28.1 *H ABG Total CO2 29.1 29.8 ABG Base Excess (-4.0 - 4.0 MMOL/L) 1.4 1.7 ABG Hematocrit (33.0 - 45.0 %) 24 L 25 L ABG Hemoglobin (11.0 - 15.0 G/DL) 8.3 L 8.4 L Sodium (134 - 147 MEQ/L) 142 142 Potassium (3.4 - 5.0 MEQ/L) 4.1 4.4 Chloride (100 - 108 MEQ/L) 106 107 Ionized Calcium (1.12 - 1.32 MMOL/L) 1.40 H 1.3 9 H Lactic Acid (0.9 - 1.7 mmol/l) 0.8 L 0.8 L Temperature (F) 97.7 98.1 O2 Delivery Device BiPAP BiPAP Vent Rate (/MIN) 25 25 FiO2 (%) 60 60 Tidal Volume (ml) 550 550 Laboratory Tests 12/22 12/22 12/22 12/22 12/22 1750 1747 1549 1126 0650 Chemistry POC Creatinine (0.6 - 1.0 mg/dL) 1.1 H 1.2 H POC Glucose (70 - 110 MG/DL) 238 H 258 H 211 H POC Glucose (mg/dL) (70 - 110 MG/DL) 236 H 371 H 12/22 12/22 12/22 12/22 12/22 0433 0430 0430 0005 0005 Chemistry Sodium (134 - 147 mEq/L) 143 Potassium (3.4 - 5.0 mEq/L) 4.0 Chloride (100 - 108 mEq/L) 106 Carbon Dioxide (21 - 33 mEq/l) 27 Anion Gap (0 - 20) 14 BUN (7 - 18 mg/dL) 33 H Creatinine (0.6 - 1.3 mg/dL) 1.3 POC Creatinine (0.6 - 1.0 mg/dL) 1.3 H 1.4 H Glomerular Filtr Rate (70 - 80) 39.6 L Glucose (70 - 110 mg/dL) 219 H POC Glucose (70 - 110 MG/DL) 178 H POC Glucose (mg/dL) (70 - 110 MG/DL) 224 H 196 H Calcium (8.0 - 10.5 mg/dL) 10.4 Phosphorus (2.5 - 4.9 MG/DL) 3.4 Magnesium (1.80 - 2.40 mg/dL) 2.20 Total Bilirubin (0.0 - 1.0 mg/dL) 0.50 Direct Bilirubin (0.0 - 0.30 MG/DL) 0.20 Indirect Bilirubin (MG/DL) 0.30 AST (15 - 37 IUnit/L) 22 ALT (30 - 65 IUnit/L) 13 L Total Alk Phosphatase (20 - 125 IUnit/L) 57 Total Protein (6.4 - 8.2 g/dL) 6.8 Albumin (3.4 - 5.0 g/dL) 4.30 12/21 2107 Chemistry POC Creatinine (0.6 - 1.0 mg/dL) 1.6 H POC Glucose (mg/dL) (70 - 110 MG/DL) 200 H Laboratory Tests 12/22 0430 Hematology WBC (4.5 - 11.0 x10 3/uL) 9.0 RBC (3.54 - 5.02 x10 6/uL) 2.32 L Hgb (11.0 - 15.0 g/dL) 8.2 L Hct (33.0 - 45.0 %) 25.3 L MCV (81.0 - 99.0 fL) 109.1 H MCH (27.0 - 33.0 pg) 35.3 H MCHC (33.0 - 37.0 g/dL) 32.4 L RDW (11.5 - 14.5 %) 16.1 H Plt Count (150 - 400 x10 3/uL) 84 L MPV (7.0 - 9.0 fL) 11.9 H Neut % (Auto) (56.0 - 77.0 %) 88.9 H Lymph % (Auto) (14.0 - 32.0 %) 2.6 L Barron % (Auto) (4.8 - 9.0 %) 7.5 Eos % (Auto) (0.3 - 3.7 %) 0.1 L Baso % (Auto) (0.0 - 2.0 %) 0.1 Neut # (Auto) (2.0 - 7.6 x10 3/uL) 7.98 H Lymph # (Auto) (1.0 - 3.8 x10 3/uL) 0.23 L Barron # (Auto) (0.1 - 0.8 x10 3/uL) 0.67 Eos # (Auto) (0.0 - 0.2 x10 3/uL) 0.01 Baso # (Auto) (0.0 - 0.2 x10 3/uL) 0.01 Abs Immat Gran (auto) (0.00 - 0.03 x10 3/uL) 0. 07 H Add Manual Diff NO Immature Gran % (0.0 - 2.0 %) 0.8 Nucleated RBC % (0 - 0 %) 0.2 H Nucleated RBCs # (Man) (0.0 - 0.1 x10 3/uL) 0.0 2 Laboratory Tests 12/22/21 0430: [Embedded Image Not Available] Radiology data Recent Impressions: RADIOLOGY - XR CHEST 1 V 12/22 0635 Report Impression - Status: SIGNED Entered: 12/22/2021 0905 IMPRESSION: 1. Interval worsening pulmonary venous vascular congestion. 2. Interval worsening opacity at the right lung/ right hemithorax likely representing combination of increasing pu lmonary parenchymal opacity at the right mid and lower lung lema a nd increase in right pleural fluid collection layering over the right lung. 3. Interval worsening opacity at the retrocardia c left lower lung field. Impression By: [email or web address] - Ming Gibbs M.D. ULTRASOUND - US SOFT TISSUE TORSO 12/22 1107 Report Impression - Status: SIGNED Entered: 12/22/2021 1125 IMPRESSION: Minimal left and mild right pleural effusions. Impression By: [email or web address] - Amina Garcia D.O. 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 S/P MVR (mitral valve replacement) 2. S/P CABG x 1 3. Postoperative pulmonary dysfunction after ca rdiac surgery 4. Severe mitral regurgitation 5. CAD (coronary artery disease) 6. CKD (chronic kidney disease) 7. Immunosuppressed status 8. RONA on CPAP 9. Chronic a-fib 10. Crohn disease Free text A P: 76-year-old morbidly obese f emale with history of HTN, HL, IDDM, smoking, RONA on CPAP and home O2 as needed, macular degeneration , Crohn's disease on immunosuppressant medication s, and chronic Afib s/p ablation and PPM (on Xarelto ), who was admitted recently with heart failure symptoms. Patient underwent elective cardiac cath that s howed severe multivessel coronary artery disease not suitable for percutaneous intervention. 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 She went for surgical revascularization today and preop JORDEN revealed severe mitral regurgitation. After discussing new findings with family, patient underwent MVR (31 M agna valve), CABG x 1 (ROBERTS-LAD), ILAA and pericardectomy on 12/19/2021. Has EF of 45%. Crystalloid 1 L, urine output 700, Cell Saver 700. She is a-paced at [employer]. Surgery went well and patient was transferred to CVICU pos top in a stable surgical condition. She is currently intubated on 2 mics of epine phrine, 2 mics of Levophed and insulin drip. CI 3.0, SvO2 in 60%s, CVP 15 and PAP in 60s. Neuro: appears intact, keep off sedation, multim odal pain control, minimize narcotics use Respiratory: sats well on minimal vent s ettings, CPAP trial as tolerated, plan for extubation, may need bipap, obtain serial AB Gs, CXR reviewed Cardiovascular: Hemodynamically unstable on vaso pressors, attempt to wean, monitor PAP and hemodynamic parameters, keep CTs to suction Renal: strict I/Os, monitor Cr and electrolytes, mild lactic acidosis, trend LA, resuscitate as needed, home diuretics on hold GI: bedside swallow then ora l diet after extubation, keep NPO if required bipap, bowel regimen ID: trend WBC, continue periop antibiotics per p rotocol, low threshold for infection work-up Hem: acute postop anemia and thrombocytopenia, m onitor Hgb and CTs output, no evidence of active bleed, tr ansfuse as needed, holding off on immunosuppressive meds Endo: Blood glucose control with insulin gtt per protocol Misc: PTOT consult, DVT and GI ppx with DAPT and PPI (home med) 12/20 Appears neuro intact, multimodal pain co ntrol, monitor for CO2 narcosis, avoid narcotics Extubated successfully, required BiPAP f or hypoxia and hypercapnia, attempt to wean, obtain serial ABGs, CXR reviewed, has pulm onary edema Improved hemodynamics, off L evophed/epinephrine, continue vasopressin, inotropes with milrinone, monitor hemodynamic parameters a nd wean per CT surgery Mild MARCELLO, Cr uptrending with marginal urine outp ut, started dopamine drip Keep NPO for now while on BiPAP, bowel regimen, monitor LFTs No fevers or leukocytosis, g iven periop antibiotics, patient is immunosuppressed Hemoglobin and platelets rui nding down, no evidence of active bleed, monitor CTs output Blood glucose control with insulin drip PT/OT and out of bed to chair if tolerated DVT and GI prophylaxis with DAPT and PPI 12/21 Appears neuro intact, multimodal pain co ntrol, monitor for CO2 narcosis, avoid narcotics BiPAP for hypercapnia, attempt to wean, keep O2 sats >90%, obtain serial ABGs, CXR reviewed HD stable off vasopressors and inotropes, turn o ff vasopressin, monitor for arrhythmia Mild MARCELLO, Cr trending down, improved urine outpu t with diuresis, off dopamine drip, renal on board Keep NPO while on BiPAP, otherwise, will start o ral diet, start TPN per CT surgery No fevers or leukocytosis, complete antibiotic c ourse for UTI Hemoglobin and platelets jaja ear stable, no evidence of active bleed, monitor CTs output Blood glucose control with sliding scale insulin PT/OT and out of bed to chair if tolerated DVT and GI prophylaxis with DAPT and PPI 12/22 Appears neuro intact, multimodal pain co ntrol, monitor for CO2 narcosis, avoid narcotics BiPAP for hypercapnia, sats well on Tele flex, keep O2 sats >90%, obtain serial ABGs, CXR reviewed, may need right sided thorace ntesis, obtain right chest ultrasound Remains HD stable off vasopressors and inotropes , no more reported arrhythmia Mild MARCELLO, Cr trending down, improved uri ne output, continue diuresis per renal Oral diet as tolerated if re alan off BiPAP, bowel regimen, continue TPN per CT surgery No fevers or leukocytosis, complete antibiotic c ourse for UTI Hemoglobin and platelets appear stable, no evide nce of active bleed, remove chest tubes Blood glucose control with sliding scale insulin PT/OT and OOB as tolerated, obtain IPR DVT and GI prophylaxis with DAPT and PPI Consultants: cardiology, cardiovascular surgery Plan discussed with: patient, family, co nsultants, nurse, interdisc care team, pharmacy/pharmacist Critical care time: Minutes: 39 Electronically Signed by Jd Alva MD on 12/13 05/06 at 0621 RPT #:[id number] END OF REPORT 2021-12-22 08:22:00-00:00 [facility] Cardiology Progress Note REPORT#:[id number] REPORT STATUS: Signed DATE:12/22/21 TIME: 821 PATIENT: SAÚL GILES UNIT #: [id number] ROOM/BED: [place] [id number] : 43 AGE: 76 SEX: F ATTEND: Leah More MD ADM AUTHOR: Jillian Lane CHILD WATCH ATTENDANT * ALL edits or amendments must be made on the [employer]/computer document * Subjective Chief complaint: tolerating high flow NC Objective General VS/I O: Laboratory Tests 12/22/21 0430: [Embedded Image Not Available] 12/21/21 0214: [Embedded Image Not Available] 12/20/21 2120: [Embedded Image Not Available] 12/20/21 1715: [Embedded Image Not Available] 12/20/21 1155: [Embedded Image Not Available] Current Medications Sig/Fabby Start time Last Medication Dose Route Stop Time Status Admin Furosemide 40 MG Q8H 12/22 1700 AC IV 01/21 1659 Insulin Glargine 10 UNIT BID 12/22 1130 AC 10/1 0 SUBQ 01/21 1129 1135 Cyanocobalamin 500 MCG DAILY 12/22 09 AC PO 01/21 0859 Ferrous Sulfate 325 MG DAILY 12/22 09 AC PO 01/21 0859 Amino Acids/ 840 ML 2200 12/21 2200 AC 12/21 Electrolytes/Dextrose IV 01/20 2159 2259 Acetylcysteine 200 MG RTQ6H 12/21 1530 AC 12/22 NEB 01/20 1529 0814 Albuterol/Ipratropium 3 ML RTQ6H 12/21 1530 AC 12/22 NEB 01/20 1529 0814 Albumin Human 12.5 GM Q12H 12/21 1300 AC 12/22 IV 12/23 0101 0100 Furosemide 40 MG Q12H 12/21 1300 DC 12/22 IV 01/20 1259 0100 Bisacodyl 10 MG ONCE PRN 12/21 1200 AC RECTAL 01/20 1159 Insulin Human Lispro 0 Q6HR 12/21 1200 AC 12/22 SUBQ 01/20 1159 1130 Magnesium Hydroxide 30 ML ONCE PRN 12/21 1200 D C 12/22 PO 0802 Dextrose/Water 1,000 ML ASDIR PRN 12/21 1145 AC IV 01/20 1144 Insulin Human Lispro 0 AC HS 12/21 1130 DC SUBQ 01/20 1129 Miscellaneous 1 EACH ASDIR 12/21 1115 AC Information IV 01/20 1114 Clopidogrel Bisulfate 75 MG DAILY 12/20 09 AC 12/22 PO 01/19 0859 0803 Polyethylene Glycol 17 GM DAILY 12/20 09 AC 1 PO 01/19 0859 0803 Dopamine HCl/Dextrose 250 ML ASDIR 12/20 0800 A C 12/20 IV 01/19 0759 0829 Pantoprazole 40 MG DAILY@0600 12/20 06 AC PO 01/19 0559 0714 Docusate Sodium 100 MG BID 12/19 2099 AC 12/22 PO 01/18 2059 0803 Metoprolol Tartrate 12.5 MG Q12HR 12/19 2099 AC 12/22 PO 01/18 2059 0803 Sennosides 17.2 MG BEDTIME 12/19 2099 AC 12/21 PO 01/18 2059 2144 Milrinone Lactate/ 100 ML ASDIR 12/19 2030 CKD 12/20 Dextrose IV 01/18 2029 0441 Vasopressin 100 ML ASDIR 12/19 2030 CKD 12/20 IV 01/18 2029 204 Aspirin 81 MG DAILY 12/19 1709 AC 12/22 PO 01/18 1708 0803 Gabapentin 200 MG BID 9A 5P 12/19 1700 AC 12/20 PO 12/24 0901 0839 Amiodarone HCl 200 MG TID 12/19 1500 AC 12/22 PO 01/18 1459 0803 Tramadol HCl 25 MG Q4H PRN PRN 12/19 1230 AC PO 12/24 1229 0225 Tramadol HCl 50 MG Q4H PRN PRN 12/19 1230 AC PO 12/24 1229 1121 Mupirocin 1 APPLIC BID 12/19 1138 AC 12/22 NASAL 12/23 2101 0804 Acetaminophen 650 MG Q4H PRN PRN 12/19 1115 AC 12/21 PO 01/18 1114 0005 Acetaminophen 650 MG Q4H PRN PRN 12/19 1115 AC RECTAL 01/18 1114 Calcium Chloride 1 GM ASDIR PRN 12/19 1115 AC IV 01/18 1114 Dextrose/Water 125 ML ASDIR PRN 12/19 1115 CKD IV 01/18 1114 Dextrose/Water 250 ML ASDIR PRN 12/19 1115 CKD IV 01/18 1114 Epinephrine 5 MG ASDIR 12/19 1115 AC Dextrose/Water 245 ML IV 01/18 1114 Glucagon 1 MG ASDIR PRN 12/19 1115 AC IM 01/18 1114 Magnesium Sulfate 100 ML ASDIR PRN 12/19 1115 A C IV 01/18 1114 Magnesium Sulfate 50 ML ASDIR PRN 12/19 1115 AC IV 01/18 1114 Magnesium Sulfate/ 100 ML ASDIR PRN 12/19 1115 AC 12/22 Dextrose IV 01/18 1114 0656 Nitroglycerin/ 250 ML ASDIR 12/19 1115 AC Dextrose IV 01/18 1114 Norepinephrine 250 ML TITRATE 12/19 1115 AC Bitartrate IV 01/18 1114 Potassium Chloride 100 ML ASDIR PRN 12/19 1115 AC IV 01/18 1114 Sodium Bicarbonate 50 MEQ ASDIR PRN 12/19 1115 AC IV 01/18 1114 Sodium Chloride 1,000 ML .Q20H 12/19 1115 AC IV 01/18 1114 0242 Sodium Chloride 250 ML Q24H 12/19 1115 AC IV 01/18 111 Atorvastatin Calcium 40 MG 2100 12/18 2100 AC 1 PO 01/17 Ceftriaxone Sodium 1,000 MG Q24H 12/18 1545 AC 12/21 Sodium Chloride 10 ML IV 12/22 1700 1522 Ondansetron HCl 4 MG Q6H PRN PRN 12/18 1145 AC 12/22 IV 01/17 114 0950 Amlodipine Besylate 5 MG DAILY 12/18 899 AC PO 01/17 0859 Vancomycin HCl 1,750 MG PREOP ONCALL 12/18 0500 CKD Sodium Chloride 500 ML IV 12/25 0459 24 hour I O ending at 0700: 12/22 0712/21 1900 Intake Total 730.00 1506.00 Output Total 925 840 Balance -195.00 666.00 Intake, IV 480.00 786.00 Intake, Oral 250 720 Output, Chest 160 270 Tube Drainage Output, Urine 765 570 Patient 125.3 kg Weight Weight Standing scale Measurement Method Vital Signs: Date Time Temp Pulse Resp B/P B/P Pulse O2 O2 F low FiO2 Mean Ox Delivery Rate 12/22 929 36.5 71 28 136/61 88 90 12/22 914 36.5 69 15 137/63 91 94 12/22 899 36.4 72 31 126/61 88 91 12/23 0745 36.4 71 26 148/60 92 93 12/22 837 36.4 81 80 93 12/22 829 36.5 76 51 152/69 99 93 12/22 814 36.5 72 26 147/65 93 91 12/23 0714 72 20 91 60 70 12/22 08 High flow 60 80 nasal cannula 12/23 799 36.5 75 28 150/67 97 90 12/22 0646 36.5 71 32 149/66 95 89 12/22 0645 36.5 73 30 88 12/22 729 36.6 75 19 156/64 92 92 12/22 714 36.6 72 31 161/71 102 90 12/22 699 36.6 74 28 157/70 101 90 12/227 75 95 60 12/22 318 36.9 73 26 109/85 96 84 12/22 314 36.8 73 30 157/65 93 90 10/10 0238 36.8 75 27 122/83 101 95 10/10 0231 111/79 94 10/10 0231 36.8 73 29 155/67 97 91 10/10 0230 36.8 72 27 105/76 90 89 10/10 0215 110/82 96 10/10 0215 36.8 72 25 166/70 100 95 10/10 0200 109/76 92 10/10 0200 36.8 69 30 175/72 104 93 10/10 0145 81/81 81 10/10 0145 36.8 73 28 169/72 104 94 10/10 0134 95/74 86 10/10 0134 36.8 75 30 174/74 106 94 10/10 0131 89/73 83 10/10 0130 36.8 75 30 101/75 90 94 10/10 0115 87/73 81 10/10 0115 36.7 72 28 161/70 101 98 10/10 0100 121/116 119 10/10 0100 36.8 75 28 161/71 102 96 10/10 0045 140/77 102 10/10 0045 36.8 73 26 158/74 107 96 10/10 0030 132/85 103 10/10 0030 36.8 75 25 154/68 98 95 10/10 0015 167/69 97 10/10 0015 36.7 75 29 162/72 104 95 10/10 0010 195/70 101 10/10 0010 36.8 76 26 152/67 96 95 10/10 0009 76 93 60 10/10 0000 174/69 99 10/10 0000 36.6 75 26 159/70 100 94 10/09 2345 167/67 93 10/09 2345 36.7 75 23 149/69 99 96 10/09 2330 167/66 93 10/09 2330 36.8 75 21 134/63 91 95 10/09 2315 169/67 95 10/09 2315 36.7 76 25 149/66 95 95 10/09 2300 166/66 92 10/09 2300 36.7 76 25 147/67 97 94 10/09 2245 168/67 93 10/09 2245 36.7 75 28 141/63 91 94 10/09 2230 168/63 90 10/09 2230 36.7 72 26 139/64 92 87 10/09 2215 158/61 85 10/09 2215 36.7 75 25 132/60 87 92 10 2208 150/60 83 10 2208 36.7 72 25 128/61 88 91 10 2200 36.7 72 29 113/61 78 92 10 2145 36.7 69 33 172/67 97 93 10 2130 36.7 69 27 165/61 87 90 12/215 36.7 69 27 179/59 86 87 12/21 2100 36.7 72 26 147/60 85 96 12/21 2044 36.7 69 26 138/53 74 96 12/22 2031 69 96 60 102031 96 BiPAP 60 12/21 2029 36.7 69 27 142/54 77 92 12/21 2014 36.7 73 25 151/56 79 97 /1999 BiPAP 60 12/22 1999 36.7 70 27 149/53 75 93 12/21 1945 36.8 69 20 151/52 75 95 12/21 1930 36.8 69 14 145/51 72 96 12/21 1915 36.8 69 15 143/52 73 96 12/21 1900 36.8 71 28 165/56 82 94 12/21 1824 36.8 69 19 156/55 79 96 12/21 1815 36.9 70 21 155/55 79 96 12/21 1800 36.9 72 15 139/49 70 98 12/21 1745 37.0 73 17 139/49 70 97 12/21 1730 37.1 72 17 121/43 61 96 12/21 1647 37.2 72 141/46 68 98 12/21 1645 37.2 76 37 131/46 68 98 12/21 1630 37.2 69 152/46 70 98 12/21 1615 37.2 80 180/54 91 97 12/21 1614 37.2 78 177/44 87 99 / 1609 84 20 98 60 100 10/ 1600 37.2 75 172/54 83 100 10/ 1545 37.2 71 26 172/55 85 99 10/ 1530 37.2 70 31 171/54 84 99 10/ 1515 37.2 72 26 170/53 84 100 10/ 1500 70 27 162/48 75 97 10/ 1445 69 25 172/56 88 98 10/ 1430 75 33 159/60 90 97 12/21 1415 69 17 158/56 84 97 12/21 1400 75 25 152/58 82 98 12/21 1345 76 25 154/57 82 96 12/21 1335 75 97 60 12/21 1330 69 26 148/53 77 96 12/21 1315 72 25 155/83 100 99 12/21 1300 72 26 147/83 98 98 12/21 1256 72 25 140/81 94 98 12/21 1245 71 29 144/88 100 90 12/21 1215 71 28 166/63 89 93 12/21 1200 37.1 73 30 141/76 95 92 12/21 1145 37.1 74 30 135/57 80 92 PATIENT WEIGHT: Weight (lb): 276 Weight (oz): 3.83 Weight (kg): 125.300 Status post: CABG, MVR, and ILAA Physical Exam General appearance: chronically ill appearing, a lert, awake, oriented ENT: moist mucosal membranes Neck: no JVD Cardiovascular: CV assessment: regular rate and rhythm Respiratory: on oxygen, rhonchi Abdomen: obese Genitourinary: no flank pain, no urinary cathete r Upper extremity: UE assessment: normal temperature, no edema Lower extremity: LE assessment: edema 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, 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 Skin: dry, intact Results Radiology data: Recent Impressions: ULTRASOUND - US RETROPERITONEAL COM 12/21 1800 Report Impression - Status: SIGNED Entered: 12/21/20211927 IMPRESSION: Limited exam. No sonographic abnormality of the kidneys. Impression By: [email or web address] - Haris Chavez M.D. RADIOLOGY - XR CHEST 1 V 12/22 0635 Report Impression - Status: SIGNED Entered: 12/22/2021 0905 IMPRESSION: 1. Interval worsening pulmonary venous vascular congestion. 2. Interval worsening opacity at the right lung/ right hemithorax likely representing combination of increasing pu lmonary parenchymal opacity at the right mid and lower lung lema a nd increase in right pleural fluid collection layering over the right lung. 3. Interval worsening opacity at the retrocardia c left lower lung field. Impression By: [email or web address] - Ming Gibbs M.D. ULTRASOUND - US SOFT TISSUE TORSO 12/22 1107 Report Impression - Status: SIGNED Entered: 12/22/2021 1125 IMPRESSION: Minimal left and mild right pleural effusions. Impression By: [email or web address] - Amina Garcia D.O. Diagnosis, Assessment Plan Free Text DxA P Notes Free Text DxA P Notes: Ms Giles is a 76 y/o Femal w / PMHx: CAD, HLD, T2DM, RONA (CPAP at home), smoker, Crohn's disease, AF s/p ablation (on Xarelto), s /p PPM and lymphedema. Dr. Fortune is consulted for CAD s/p CABG, MVR. - CAD s/p CABG, MVR, and ILAA. post-op per CTS and critical care On Plavix, aspirin, beta-delma, statin volume management per Nephrology - Chr AF s/p PPM/ablation. Rate controlled, pace d rhythm. had ILAA during bypass - HTN. bp 120s to 140s- doing better with renal perfus ion. creatinine continue to improve avoid hypotension - HLD. On statins. - Crohn's disease. Per IM. -MARCELLO per Nephrology continue supportive care Electronically Signed by Jillian Lane NP on 1 at 1149 Electronically Signed by Aruna Fortune MD on at 2254 RPT #:[id number] END OF REPORT 2021-12-21 13:07:00-00:00 [facility] Hospitalist Progress Note REPORT#:[id number] REPORT STATUS: Signed DATE:12/21/21 TIME: 1307 PATIENT: SAÚL GILES UNIT #: [id number] ROOM/BED: [place] [id number] : 43 AGE: 76 SEX: F ATTEND: Leah More MD ADM AUTHOR: Meryl Rosa MD * ALL edits or amendments must be made on the [employer]/computer document * Subjective Chief complaint: she is on high flow O2 acute respiratory failure --post CABG HPI: 76 years old female with PMH of macular degeneration, obesity, obstructive sleep apnea (CPAP at home), former smoker, hypertensio n, hyperlipidemia, diabetes, Crohn's disease, chronic atr ial fibrillation status post 3 ablations in the past (on Xarelto), pacemaker plac cindi is admitted to the hospital post cardiac cath . she need CABG . she had sob for years . sob go t worse . she was admitted to the hospital in [place] . she had cath 3 we eks ago . she was reffered to here for stents placement . she had cath yesterd ay . it show multiple vessels CAD . she is recommend CABG . she still feel sob . no cp no nausea no vomiting no fever no abdominal pain no dizziness . Review of Systems Constitutional: Denies: fever. Respiratory: Reports: SOB. Denies: wheezing. Cardiovascular: Reports: edema. Denies: orthopnea. GI: Denies: nausea, vomiting. Neuro: Denies: dizziness. Objective General VS/I O: Vital Signs: Date Time Temp Pulse Resp B/P B/P Pulse O2 O2 F low FiO2 Mean Ox Delivery Rate 12/21 1256 72 25 140/81 94 98 12/21 1245 71 29 144/88 100 90 12/21 1215 71 28 166/63 89 93 12/21 1200 37.1 73 30 141/76 95 92 12/21 1145 37.1 74 30 135/57 80 92 12/21 1130 37.1 72 26 143/54 77 89 12/21 1115 37.1 76 42 119/50 72 92 12/21 1100 37.1 69 21 138/42 66 95 12/21 1045 37.1 72 22 141/44 69 95 12/21 1030 37.1 72 18 141/46 70 97 12/21 1015 37.1 75 21 139/52 74 97 12/21 1000 37.1 69 24 138/45 69 97 12/21 0945 37.1 72 25 140/46 69 97 12/21 0833 37.1 75 27 139/47 71 96 12/21 0830 37.1 75 25 152/48 73 97 12/21 0815 37.1 72 26 129/46 69 96 12/21 0800 37.1 69 25 142/48 71 97 12/22 0745 37.2 69 24 145/47 71 97 12/21 0830 37.2 74 21 153/45 72 97 12/22 0715 37.2 72 28 141/36 64 95 12/22 799 High flow 55 60 nasal cannula 10/09 0800 37.3 75 25 149/46 73 97 10/09 0745 37.4 72 26 148/49 73 94 10/09 0730 37.4 74 18 152/55 84 97 10/09 0715 37.4 69 25 158/53 82 100 10/09 0700 37.4 69 25 171/65 94 100 10/09 0600 37.4 73 25 165/61 88 99 10/ 0500 37.3 72 29 150/55 81 95 10/ 0400 37.4 70 25 173/60 91 99 10/09 0359 69 100 60 10/09 0359 100 BiPAP 60 10/ 0300 37.3 69 25 165/57 84 100 10/ 0200 37.4 73 27 175/63 93 99 10/ 0100 37.3 76 26 162/59 86 99 10/ 0015 26 10/ 0000 37.3 75 172/61 92 99 10/08 2310 74 97 60 10/08 2300 37.3 75 26 173/58 88 97 10/08 2211 155/51 76 10/08 2200 37.3 73 34 113/46 68 85 10/08 2100 37.3 75 26 156/52 78 98 10/08 1999 BiPAP 60 10/ 2000 37.2 75 25 135/48 69 98 10/08 1922 75 99 60 10/08 1922 99 BiPAP 60 10/08 1915 25 10/08 1900 37.2 72 90/51 62 97 10/08 1835 37.2 69 25 114/42 58 100 10/08 1830 37.2 74 25 116/43 60 100 10/08 1815 37.2 75 26 117/42 59 97 10/08 1800 37.1 72 25 106/40 55 97 10/08 1745 37.1 73 25 106/39 54 99 10/08 1730 37.1 75 25 113/37 54 99 10/08 1715 37.1 76 26 111/37 54 100 10/08 1713 76 100 60 10/08 1700 37.0 72 25 108/42 58 99 10/08 1645 37.0 73 29 106/42 57 99 10/08 1630 37.0 73 26 104/42 57 99 10/08 1615 37.0 69 25 101/41 55 98 10/08 1600 37.0 69 26 99/40 52 100 10/08 1545 37.0 69 25 96/35 48 99 10/08 1530 36.9 69 26 97/34 48 100 10/08 1515 36.9 74 27 95/36 50 100 10/08 1503 69 100 60 10/08 1500 36.9 75 26 106/38 54 100 10/08 1445 36.8 73 26 98/35 50 100 10/08 1430 36.8 74 25 107/37 53 100 10/ 1415 36.7 72 26 112/43 58 100 10/08 1400 36.7 74 25 109/42 57 100 10/ 1345 36.7 73 29 105/42 58 100 / 1330 36.6 73 25 134/47 68 100 / 1315 36.6 72 25 124/47 67 100 24 hour I O ending at 0700: 12/21 0700 12/20 1900 Intake Total 1284.00 Output Total 1040 549 Balance -1040 735.00 Intake, IV 804.00 Intake, Oral 480 Output, Chest 100 296 Tube Drainage Output, Urine 940 253 Patient 124.3 kg 119.748 kg Weight Weight Bed scale Measurement Method PATIENT WEIGHT: Weight (lb): 274 Weight (oz): 0.55 Weight (kg): 124.300 Medications: Active Meds + DC'd Last 24 Hrs Cyanocobalamin (Vitamin B-12 500 mcg tab) 500 MC G DAILY PO Ferrous Sulfate (FERROUS SULFATE) 325 MG DAILY P O Amino Acids/Electrolytes/Dextrose (TPN ADULT- CE NTRAL 1000ML) 840 ML 2200 IV Albumin Human (ALBUMINAR 5% 12.5GM/250ML) 12.5 G M Q12H IV Furosemide (LASIX 40 mg/4 mL INJECTION) 40 MG Q1 2H IV Bisacodyl (DULCOLAX) 10 MG ONCE PRN RECTAL Insulin Human Lispro (HUMALOG) 0 Q6HR SUBQ Magnesium Hydroxide (MILK OF MAGNESIA) 30 ML ONC E PRN PO Dextrose/Water (Dextrose 10% 1,000 mL) 1,000 ML ASDIR PRN IV Insulin Human Lispro (HUMALOG) 0 AC HS SUBQ (DC) Miscellaneous Information (TPN (Central) PHARMAC Y TO DOSE) 1 EACH ASDIR IV Albumin Human (ALBUMINAR 25%) 100 ML ONCE ONE IV (DC) Furosemide (LASIX 40 mg/4 mL INJECTION) 60 MG ON CE ONE IV (DC) Albumin Human (ALBUMINAR 25%) 100 ML ONCE ONE IV (DC) Furosemide (LASIX 40 mg/4 mL INJECTION) 60 MG ON CE ONE IV (DC) Clopidogrel Bisulfate (Plavix) 75 MG DAILY PO Polyethylene Glycol (MIRALAX) 17 GM DAILY PO Dopamine HCl/Dextrose (DOPamine 400MG/D5W 250ML) 250 ML ASDIR IV Pantoprazole (PROTONIX) 40 MG DAILY@0600 PO Docusate Sodium (COLACE) 100 MG BID PO Metoprolol Tartrate (LOPRESSOR) 12.5 MG Q12HR PO Sennosides (Senna Lax 8.6 MG TABLET) 17.2 MG BED TIME PO Milrinone Lactate/Dextrose (MILRINONE 20MG/D5W 1 00ML) 100 ML ASDIR IV ( CKD) Vasopressin (VASOSTRICT 20 Unit/NS 100ML) 100 ML ASDIR IV (CKD) Aspirin (ASPIRIN) 81 MG DAILY PO Gabapentin (NEURONTIN) 200 MG BID 9A 5P PO Amiodarone HCl (CORDARONE) 200 MG TID PO Tramadol HCl (ULTRAM) 25 MG Q4H PRN PRN PO Tramadol HCl (ULTRAM) 50 MG Q4H PRN PRN PO Mupirocin (BACTROBAN 2% 22 GM OINTMENT) 1 APPLIC BID NASAL Acetaminophen (TYLENOL) 650 MG Q4H PRN PRN PO Acetaminophen (TYLENOL) 650 MG Q4H PRN PRN RECTA L Calcium Chloride (CALCIUM CHLORIDE) 1 GM ASDIR P RN IV Chlorhexidine Gluconate (PERIDEX) 15 ML Q2H MM ( DC) Dextrose/Water (DEXTROSE 10% IN WATER) 125 ML DIR PRN IV (CKD) Dextrose/Water (DEXTROSE 10% IN WATER) 250 ML DIR PRN IV (CKD) Epinephrine (ADRENALIN CHLORIDE) 5 MG ASDIR IV Dextrose/Water (DEXTROSE 5% WATER) 245 ML Glucagon (GLUCAGON) 1 MG ASDIR PRN IM Insulin Human Regular (HumuLIN R) 100 UNIT ASDIR IV (DC) Sodium Chloride (SODIUM CHLORIDE 0.9%) 99 ML Magnesium Sulfate (MAGNESIUM SULFATE 4GM/SWFI 10 0ML) 100 ML ASDIR PRN IV Magnesium Sulfate (MAGNESIUM SULFATE 2GM/SWFI 50 ML) 50 ML ASDIR PRN IV Magnesium Sulfate/Dextrose (MAGNESIUM SULFATE 1G M/D5W 100ML) 100 ML ASDIR PRN IV Nitroglycerin/Dextrose (NITROGLYCERIN 50,000MCG/ D5W 250ML) 250 ML ASDIR IV Norepinephrine Bitartrate (NOREPINEPHRINE 8 MG/N S 250 ML) 250 ML TITRATE IV Potassium Chloride (KCL 20MEQ/SWFI 100ML) 100 ML ASDIR PRN IV Sodium Bicarbonate (SODIUM BICARBONATE) 50 MEQ A SDIR PRN IV Sodium Chloride (SODIUM CHLORIDE 0.9%) 1,000 ML .Q20H IV Sodium Chloride (SODIUM CHLORIDE 0.9%) 250 ML Q2 4H IV Atorvastatin Calcium (LIPITOR) 40 MG 2100 PO Ceftriaxone Sodium (ROCEPHIN 1000MG VIAL) 1,000 MG Q24H IV Sodium Chloride (SODIUM CHLORIDE) 10 ML Ondansetron HCl (ZOFRAN) 4 MG Q6H PRN PRN IV Amlodipine Besylate (NORVASC) 5 MG DAILY PO Vancomycin HCl (VANCOMYCIN HCL) 1,750 MG PREOP O NCALL IV (CKD) Sodium Chloride (NS 0.9%) 500 ML Physical Exam General appearance: alert, awake, oriented Head/Eyes: atraumatic, normal conjunctiva/sclera , normal eyelids/periorb., normocephalic ENT: intubated Neck: full range of motion, non-tender, no JVD Cardiovascular: normal heart sounds, regular rat e rhythm Respiratory: dyspneic, hypercapnia, hypoxia, on oxygen, clear to auscultation Abdomen: non-tender, normal bowel sounds, soft, no distention Extremities: moves all, no calf tenderness, no e ana 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 Skin: dry, intact Results Findings/Data: Laboratory Tests 12/21 12/21 12/21 12/20 1224 0210 0102 2119 Blood Gas Puncture Site Art Line Art Line [place] Art L ine O2 Saturation (90 - 100 %) 73.8 L 96.8 96.0 ABG pH (7.35 - 7.45) 7.227 *L 7.341 L 7.328 L ABG pCO2 (35.0 - 45 mmHg) 65.9 *H 50.1 *H 50.9 *H ABG pO2 (80 - 100.0 mmHg) 47.8 *L 95.7 89.7 ABG PO2/FiO2 Ratio (mm/Hg) 47.80 159.50 149.50 ABG HCO3 (22.0 - 26.0 MMOL/L) 27.4 H 27.1 H 26 .7 H ABG Total CO2 29.4 28.7 28.3 ABG Base Excess (-4.0 - 4.0 MMOL/L) -0.2 1.4 0 .8 ABG Hematocrit (33.0 - 45.0 %) 26 L 25 L 17 L 2 3 L ABG Hemoglobin (11.0 - 15.0 G/DL) 8.7 L 8.4 L 5 .9 L 7.8 L Martin Test N/A VBG pH (7.33 - 7.45) 7.329 L VBG pCO2 (43 - 47 mmHg) 39.5 L VBG pO2 (10 - 50 mmHG) 33.3 VBG HCO3 (22 - 27 MMOL/L) 20.8 L POC VBG Total CO2 22.0 VBG O2 Saturation (60 - 80 %) 60.0 VBG Base Excess (-4.0 - 4.0 MMOL/L) -5.2 L VBG Temperature (F) 98.6 Sodium (134 - 147 MEQ/L) 143 143 142 Potassium (3.4 - 5.0 MEQ/L) 4.2 4.1 4.2 Chloride (100 - 108 MEQ/L) 106 107 107 Ionized Calcium (1.12 - 1.32 MMOL/L) 1.40 H 1.3 6 H 1.32 Lactic Acid (0.9 - 1.7 mmol/l) 0.8 L 0.8 L 0.6 L Temperature (F) 98.7 98.7 O2 Delivery Device Vapotherm BiPAP BiPAP BiPAP Vent Rate (/MIN) 25 25 FiO2 (%) 100 60 60 60 Tidal Volume (ml) 550 12/20 12/20 1704 1512 Blood Gas Puncture Site Art Line Art Line O2 Saturation (90 - 100 %) 96.5 99.8 ABG pH (7.35 - 7.45) 7.318 L 7.318 L ABG pCO2 (35.0 - 45 mmHg) 55.5 *H 52.0 *H ABG pO2 (80 - 100.0 mmHg) 95.3 244.0 *H ABG PO2/FiO2 Ratio (mm/Hg) 158.83 244.00 ABG HCO3 (22.0 - 26.0 MMOL/L) 28.5 *H 26.7 H ABG Total CO2 30.2 28.3 ABG Base Excess (-4.0 - 4.0 MMOL/L) 2.4 0.6 ABG Hematocrit (33.0 - 45.0 %) 22 L 29 L ABG Hemoglobin (11.0 - 15.0 G/DL) 7.5 L 9.8 L Martin Test N/A N/A Sodium (134 - 147 MEQ/L) 142 143 Potassium (3.4 - 5.0 MEQ/L) 4.3 4.2 Chloride (100 - 108 MEQ/L) 108 109 H Ionized Calcium (1.12 - 1.32 MMOL/L) 1.34 H 1.3 3 H Lactic Acid (0.9 - 1.7 mmol/l) 0.7 L 0.5 L Respiration Rate (/MIN) 25 25 O2 Delivery Device BiPAP BiPAP Vent Rate (/MIN) 25 25 FiO2 (%) 60 100 Inspiratory Time 0.6 0.6 Tidal Volume (ml) 550 550 PEEP (cmH2O) 6 6 Laboratory Tests 12/21 12/21 12/21 12/21 12/21 1224 0925 0925 0817 0409 Chemistry POC Creatinine (0.6 - 1.0 mg/dL) 1.7 H POC Glucose (70 - 110 MG/DL) 114 H 113 H POC Glucose (mg/dL) (70 - 110 MG/DL) 139 H Ionized Calcium Gigi (1.09 - 1.30 MMOL/L) 1.17 Phosphorus (2.5 - 4.9 MG/DL) 4.5 12/21 12/21 12/21 12/20 12/20 0214 0210 0102 2207 2120 Chemistry Sodium (134 - 147 mEq/L) 145 145 Potassium (3.4 - 5.0 mEq/L) 4.3 4.4 Chloride (100 - 108 mEq/L) 107 108 Carbon Dioxide (21 - 33 mEq/l) 26 27 Anion Gap (0 - 20) 16 14 BUN (7 - 18 mg/dL) 30 H 29 H Creatinine (0.6 - 1.3 mg/dL) 1.6 H 1.8 H POC Creatinine (0.6 - 1.0 mg/dL) 1.8 H 1.4 H Glomerular Filtr Rate (70 - 80) 31.2 L 27.2 L Glucose (70 - 110 mg/dL) 117 H 130 H POC Glucose (70 - 110 MG/DL) 126 H POC Glucose (mg/dL) (70 - 110 MG/DL) 113 H Calcium (8.0 - 10.5 mg/dL) 10.2 9.8 Magnesium (1.80 - 2.40 mg/dL) 2.41 H Total Bilirubin (0.0 - 1.0 mg/dL) 0.50 Direct Bilirubin (0.0 - 0.30 MG/DL) 0.30 Indirect Bilirubin (MG/DL) 0.20 AST (15 - 37 IUnit/L) 32 ALT (30 - 65 IUnit/L) 12 L Total Alk Phosphatase (20 - 125 IUnit/L) 50 Total Protein (6.4 - 8.2 g/dL) 7.1 Albumin (3.4 - 5.0 g/dL) 4.60 12/20 12/20 12/20 12/20 12/20 2119 1909 1704 1617 1512 Chemistry POC Creatinine (0.6 - 1.0 mg/dL) 2.0 H 1.9 H 1. 9 H POC Glucose (70 - 110 MG/DL) 136 H 139 H POC Glucose (mg/dL) (70 - 110 MG/DL) 128 H 136 H 144 H 12/20 1352 Chemistry POC Glucose (70 - 110 MG/DL) 167 H Laboratory Tests 12/21 12/20 0214 1715 Hematology WBC (4.5 - 11.0 x10 3/uL) 9.2 8.0 RBC (3.54 - 5.02 x10 6/uL) 2.23 L 2.14 L Hgb (11.0 - 15.0 g/dL) 8.2 L 7.5 L Hct (33.0 - 45.0 %) 24.8 L 23.7 L MCV (81.0 - 99.0 fL) 111.2 H 110.7 H MCH (27.0 - 33.0 pg) 36.8 H 35.0 H MCHC (33.0 - 37.0 g/dL) 33.1 31.6 L RDW (11.5 - 14.5 %) 16.1 H 15.9 H Plt Count (150 - 400 x10 3/uL) 71 L 64 L MPV (7.0 - 9.0 fL) 12.2 H 11.3 H Neut % (Auto) (56.0 - 77.0 %) 88.2 H 87.2 H Lymph % (Auto) (14.0 - 32.0 %) 2.9 L 2.4 L Barron % (Auto) (4.8 - 9.0 %) 7.9 9.7 H Eos % (Auto) (0.3 - 3.7 %) 0.1 L 0.1 L Baso % (Auto) (0.0 - 2.0 %) 0.1 0.0 Neut # (Auto) (2.0 - 7.6 x10 3/uL) 8.12 H 6.93 Lymph # (Auto) (1.0 - 3.8 x10 3/uL) 0.27 L 0.19 L Barron # (Auto) (0.1 - 0.8 x10 3/uL) 0.73 0.77 Eos # (Auto) (0.0 - 0.2 x10 3/uL) 0.01 0.01 Baso # (Auto) (0.0 - 0.2 x10 3/uL) 0.01 0.00 Abs Immat Gran (auto) (0.00 - 0.03 x10 3/uL) 0. 07 H 0.05 H Add Manual Diff NO NO Immature Gran % (0.0 - 2.0 %) 0.8 0.6 Nucleated RBC % (0 - 0 %) 0.0 0.3 H Nucleated RBCs # (Man) (0.0 - 0.1 x10 3/uL) 0. 00 0.02 Immature Plt Fraction (0.9 - 11.2 %) 8.9 8.7 Radiology data: Recent Impressions: RADIOLOGY - XR CHEST 1 V 12/21 0647 Report Impression - Status: SIGNED Entered: 12/21/2021 0700 IMPRESSION: Stable examination. Impression By: Hector - Nancy Bender Treatment Prophylaxis Treatment Prophylaxis Drain(s)/tube(s): Drain(s)/tube(s): chest (x3) Diagnosis, Assessment Plan Consultants: cardiology, cardiovascular surgery Free Text DxA P Notes Free text DxA P notes: 76 years old female with PMH of macular degeneration, obesity, obstructive sleep apnea (CPAP at home), former smoker, hypertensio n, hyperlipidemia, diabetes, Crohn's disease, chronic atr ial fibrillation status post 3 ablations in the past (on Xarelto), pacemaker placement CAD -- multiple vesssels HTN DM HLD Crohn's disease chronic atrial fibrillation status post 3 ablati ons macular degeneration obesity obstructive sleep apnea acute respiratory failure --post surgery severe mitral valve regurgitation constrictive pericarditis CAD -- cardiology consult CV surgeon consult CABG -- AM ASA/lipitor afib -- rate control -- hold xarelto for surgery HTN-- continue home med DM-- on lantus -- sliding scale HLD-- on lipitor RONA--cpap as need DVTP -- heparin 12/18- feel sob -- CABG -- afternoon 12/19--post MVR (31 Magna valve), CABG x 1 (ROBERTS- LAD), ILAA and pericardectomy -- she remain intubated on the vent -- chest tube are in place -on levophed and epinephrine drip -- monitor in CCU 12/20- she was extubated --on bipap now -- NPO --off Levophed/epinephrine, continue vasopressi n, inotropes with milrinone, -- chest tube remain in place -- she is stable post surgery 12/21-- she is on high flow O2 -- edema --lasix --chest tube in place --- she is hemodynamic stable -- continue monitor in CCU review all image and consultants notes Current Medications Sig/Fabby Start time Last Medication Dose Route Stop Time Status Admin Amlodipine Besylate 5 MG DAILY 12/18 899 AC PO 01/17 859 Furosemide 10 MG DAILY 12/18 899 AC PO 01/17 859 Lisinopril 40 MG DAILY 12/18 899 AC PO 01/16 1214 Losartan Potassium 100 MG DAILY 12/18 899 AC PO 01/17 859 Metolazone 10 MG DAILY 12/18 899 AC PO 01/17 859 Pantoprazole 40 MG DAILY@0600 12/18 599 AC PO 01/17 559 Cefazolin Sodium 3 GM PREOP ONCALL 12/18 0500 C KD Sodium Chloride 250 ML IV 12/18 2359 Metoprolol Tartrate 6.25 MG ONCE ONE 12/18 499 AC PO 12/18 0501 Vancomycin HCl 1,750 MG PREOP ONCALL 12/18 0500 DC Sodium Chloride 500 ML IV 12/18 235 Vancomycin HCl 1,750 MG PREOP ONCALL 12/18 0500 CKD Sodium Chloride 500 ML IV 12/25 0459 Verapamil HCl 16.6 MG .Q24H ONE 12/18 050 CKD Heparin Sodium 1,660 UNIT IV 12/19 045 (Porcine) Sodium Bicarbonate 0.7 ML Nitroglycerin/ 8.3 MG Dextrose Lactated Ringer's 949.5 ML Clonidine HCl 0.3 MG BID 12/17 2099 AC PO 01/16 2059 Doxazosin Mesylate 4 MG BEDTIME 12/17 2099 AC PO 01/16 2059 Insulin Glargine 50 UNIT BID 12/17 2099 AC SUBQ 01/16 2059 Insulin Human Lispro 0 AC HS 12/17 2099 AC SUBQ 01/16 2059 Pravastatin Sodium 10 MG 2100 12/17 2100 AC PO 01/16 205 Dextrose/Water 125 ML ASDIR PRN 12/17 1800 CKD IV 01/16 175 Dextrose/Water 250 ML ASDIR PRN 12/17 1800 CKD IV 01/16 175 Glucagon 1 MG ASDIR PRN 12/17 1800 AC IM 01/16 1759 Atropine Sulfate 0.5 MG ASDIR PRN 12/17 1200 AC IV 12/18 1158 Sodium Chloride 1,000 ML .[id number] 12/17 1200 AC 12/17 IV 12/17 1839 1404 Sodium Chloride 500 ML ASDIR PRN 12/17 1200 AC IV 12/18 1158 Adenosine 0 .STK-MED ONE 12/17 1052 DC IV Sodium Chloride 50 ML .STK-MED ONE 12/17 1052 D C IV Iopamidol 100 ML .STK-MED ONE 12/17 1034 DC IV 12/17 1035 1034 Fentanyl Citrate 0 .STK-MED ONE 12/17 1019 DC 1 005 .ROUTE 1030 Midazolam HCl 0 .STK-MED ONE 12/17 1019 DC 10/0 5 .ROUTE 1030 Heparin Sodium/ 500 ML .STK-MED ONE 12/17 0949 DC 12/17 Sodium Chloride IV 1030 Heparin Sodium 0 .STK-MED ONE 12/17 0940 DC 05 .ROUTE 1030 Heparin Sodium/ 1,000 ML .[facility] ONE 12/17 094 0 DC 10/05 Sodium Chloride IV 1030 Heparin Sodium/ 500 ML .[facility] ONE 12/17 0840 DC 10/05 Sodium Chloride IV 1030 Lidocaine HCl 0 .[facility] ONE 12/17 0840 DC 10/0 5 .ROUTE 1030 Nitroglycerin/ 250 ML .[facility] ONE 12/18 939 D C 10/ Dextrose IV 1030 Verapamil HCl 0 .[facility] ONE 12/18 939 DC 10/0 5 IV 1030 Home Medications: RIVAROXABAN (XARELTO) 20 MG PO DAILY amLODIPine (NORVASC) 5 MG PO DAILY cloNIDine (CATAPRES) 0.3 MG PO BID DOXAZOSIN (CARDURA) LISINOPRIL (ZESTRIL) OLMESARTAN (BENICAR) 40 MG PO DAILY PRAVASTATIN (PRAVACHOL) FUROSEMIDE (LASIX) 10 MG PO DAILY METOLAZONE (ZAROXOLYN) 10 MG PO DAILY POTASSIUM CHLORIDE ER (MICRO-K) 10 MEQ PO DAILY OMEPRAZOLE ER 20 MG PO DAILY GLIMEPIRIDE (AMARYL) 4 MG PO DAILY INSULIN DETEMIR (LEVEMIR FlexTouch (15mL)) 50 UN ITS SUBQ BID INSULIN LISPRO (HumaLOG CARTRIDGE (15mL)) 0 UNIT S SUBQ TID LIRAGLUTIDE (VICTOZA (6mL)) 1.8 MG SUBQ DAILY metFORMIN (GLUCOPHAGE) 1,000 MG PO BID ADALIMUMAB + SUPPLIES (HUMIRA PREFILLED PEN) 40 MG SUBQ Q14D azaTHIOprine (IMURAN) 50 MG PO DAILY Quality: Gen Med Crit Care Current Medications Current medication review: Home Medications: RIVAROXABAN (XARELTO) 20 MG PO DAILY amLODIPine (NORVASC) 5 MG PO DAILY cloNIDine (CATAPRES) 0.3 MG PO BID DOXAZOSIN (CARDURA) LISINOPRIL (ZESTRIL) OLMESARTAN (BENICAR) 40 MG PO DAILY PRAVASTATIN (PRAVACHOL) FUROSEMIDE (LASIX) 10 MG PO DAILY METOLAZONE (ZAROXOLYN) 10 MG PO DAILY POTASSIUM CHLORIDE ER (MICRO-K) 10 MEQ PO DAILY OMEPRAZOLE ER 20 MG PO DAILY GLIMEPIRIDE (AMARYL) 4 MG PO DAILY INSULIN DETEMIR (LEVEMIR FlexTouch (15mL)) 50 UN ITS SUBQ BID INSULIN LISPRO (HumaLOG CARTRIDGE (15mL)) 0 UNIT S SUBQ TID LIRAGLUTIDE (VICTOZA (6mL)) 1.8 MG SUBQ DAILY metFORMIN (GLUCOPHAGE) 1,000 MG PO BID ADALIMUMAB + SUPPLIES (HUMIRA PREFILLED PEN) 40 MG SUBQ Q14D azaTHIOprine (IMURAN) 50 MG PO DAILY I attest that the foregoing medication list in t medical record is true, accurate, and complete to the best of my knowled ge. Electronically Signed by Meryl Rosa MD on 2 at 1738 [facility] #:[id number] END OF REPORT 2021-12-21 12:52:00-00:00 [facility] REPORT#:[id number] REPORT STATUS: Signed DATE:12/21/21 TIME: 1252 PATIENT: SAÚL GILES UNIT #: [id number] ROOM/BED: [place] [address] : 43 AGE: 76 SEX: F ATTEND: Leah More MD ADM AUTHOR: Suki Fuchs MD * ALL edits or amendments must be made on the [employer]/computer document * Subjective Chief complaint: chest pain HPI: This is a 76-year-old female who has past medica l history of hypertension, diabetes, coronary artery disease, atrial fibril lation who presented with worsening shortness of breath and on further wor k-up was 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 She was with normal kidney function prior to surgery and afte r her surgery she began to develop oliguria. Her procedure was done without any complications but after her surgery she did require pressor support for hypotension and she was intubated for respiratory acidosis and hypoxia a nd she was treated with vancomycin for infection treatment. When she was seen this morning she continued to have hypotension and her heart rate was paced by her permanent pacemaker and her urine outp ut was 20 to 30/h. Her family at bedside denied any history of kidney disease, kidney stone, chronic NSAID use or any urinary complaints. They also endorse that her b lood pressure and diabetes were mostly controlled. 12/21 Appearing comfortable, not in any distress,on ox ygen through nasal canula. Objective General VS/I O: Vital Signs: Date Time Temp Pulse Resp B/P B/P Pulse O2 O2 F low FiO2 Mean Ox Delivery Rate 12/22 2031 69 96 60 12/22 2031 96 BiPAP 60 12/21 1824 36.8 69 19 156/55 79 96 12/21 1815 36.9 70 21 155/55 79 96 12/21 1800 36.9 72 15 139/49 70 98 12/21 1745 37.0 73 17 139/49 70 97 12/21 1730 37.1 72 17 121/43 61 96 12/21 1647 37.2 72 141/46 68 98 12/21 1645 37.2 76 37 131/46 68 98 12/21 1630 37.2 69 152/46 70 98 12/21 1615 37.2 80 180/54 91 97 12/21 1614 37.2 78 177/44 87 99 12/21 1609 84 20 98 60 100 12/21 1600 37.2 75 172/54 83 100 12/21 1545 37.2 71 26 172/55 85 99 12/21 1530 37.2 70 31 171/54 84 99 12/21 1515 37.2 72 26 170/53 84 100 12/21 1500 70 27 162/48 75 97 12/21 1445 69 25 172/56 88 98 12/21 1430 75 33 159/60 90 97 12/21 1415 69 17 158/56 84 97 12/21 1400 75 25 152/58 82 98 12/21 1345 76 25 154/57 82 96 12/21 1335 75 97 60 12/21 1330 69 26 148/53 77 96 12/21 1315 72 25 155/83 100 99 12/21 1300 72 26 147/83 98 98 12/21 1256 72 25 140/81 94 98 12/21 1245 71 29 144/88 100 90 12/21 1215 71 28 166/63 89 93 10 1200 37.1 73 30 141/76 95 92 12/21 1145 37.1 74 30 135/57 80 92 12/21 1130 37.1 72 26 143/54 77 89 12/21 1115 37.1 76 42 119/50 72 92 12/21 1100 37.1 69 21 138/42 66 95 10 1045 37.1 72 22 141/44 69 95 10/ 1030 37.1 72 18 141/46 70 97 10/ 1015 37.1 75 21 139/52 74 97 10/ 1000 37.1 69 24 138/45 69 97 10/ 0945 37.1 72 25 140/46 69 97 10/ 0933 37.1 75 27 139/47 71 96 10/ 0930 37.1 75 25 152/48 73 97 10/ 0915 37.1 72 26 129/46 69 96 10/ 0900 37.1 69 25 142/48 71 97 10/ 0845 37.2 69 24 145/47 71 97 10/ 0830 37.2 74 21 153/45 72 97 / 0815 37.2 72 28 141/36 64 95 10 0800 High flow 55 60 nasal cannula 12/21 0800 37.3 75 25 149/46 73 97 12/21 0745 75 25 97 60 100 12/21 0745 97 High flow 100 nasal cannula 12/21 0745 37.4 72 26 148/49 73 94 12/21 0730 37.4 74 18 152/55 84 97 12/21 0715 37.4 69 25 158/53 82 100 12/21 0700 37.4 69 25 171/65 94 100 12/21 0600 37.4 73 25 165/61 88 99 12/21 0500 37.3 72 29 150/55 81 95 12/21 0400 37.4 70 25 173/60 91 99 12/21 0359 69 100 60 12/21 0359 100 BiPAP 60 12/21 0300 37.3 69 25 165/57 84 100 12/21 0200 37.4 73 27 175/63 93 99 12/21 0100 37.3 76 26 162/59 86 99 12/21 0015 26 12/21 0000 37.3 75 172/61 92 99 12/20 2310 74 97 60 12/20 2300 37.3 75 26 173/58 88 97 24 hour I O ending at 0700: 12/21 0700 12/20 1900 Intake Total 1284.00 Output Total 1040 549 Balance -1040 735.00 Intake, IV 804.00 Intake, Oral 480 Output, Chest 100 296 Tube Drainage Output, Urine 940 253 Patient 124.3 kg 119.748 kg Weight Weight Bed scale Measurement Method PATIENT WEIGHT: Weight (lb): 274 Weight (oz): 0.55 Weight (kg): 124.300 Physical Exam General appearance: alert, awake, oriented Head/eyes: atraumatic, normocephalic ENT: ET tube Neck: no JVD, no lymphadenopathy Cardiovascular: normal heart sounds, regular rat e and rhythm Respiratory: aerating well, clear to auscultatio n Abdomen: soft, no pulsatile mass Genitourinary: urinary catheter Treatment Prophylaxis Treatment Prophylaxis Drain(s)/tube(s): Drain(s)/tube(s): chest (x3) Diagnosis, Assessment Plan Free Text A P: This is a 76-year-old female known to have hyper tension, diabetes, atrial fibrillation, s/p permanent pacemaker and histor y of ablation presenting with shortness of breath and found to have multivesse l coronary artery disease therefore she had CABG on December 19 after which she has developed oliguria. Nephrology is following for: 1. Acute kidney injury: Most likely it i s prerenal (cardiorenal), she has been hypotensive postoperatively with require ment for pressor support and inotropic support. Plan is to increase inotropic support or pressor support to bring mean arterial pressure above 65 and give albumin with Lasix to see if it helps him diurese. If he does not respond to higher dose L asix with albumin then I will consider starting him on CRRT to prevent hyper v olemia. 2. Hypervolemia: Plan is to give Lasix a nd if he does not respond to start him on CRRT for extra fluid removal. 3. His electrolytes were all reviewed to be in normal range plan was to monitor and replace as needed. 4. He was receiving vancomycin so plan w as to monitor vancomycin trough levels to prevent ATN. 12/21 1. Acute kidney injury: Most likely it i s prerenal (cardiorenal), she has been hypotensive postoperatively with require ment for pressor support and inotropic support. She responded to Lasix after her blood pressure improved with higher dose vasopressin and she was given albumin. Plan was to continue twice a day Lasix and albumin for hypervolemia. 2. Hypervolemia: Plan is to give Lasix with albu min twice daily and increase dose if needed. 3. His electrolytes were all reviewed to be in normal range plan was to monitor and replace as needed. 4. He was receiving vancomycin so plan w as to monitor vancomycin trough levels to prevent ATN. Consultants: cardiology, cardiovascular surgery Electronically Signed by Suki Fuchs MD on at 2224 RPT #:[id number] END OF REPORT 2021-12-21 11:44:00-00:00 [facility] Critical Care Progress Note REPORT#:[id number] REPORT STATUS: Signed DATE:12/21/21 TIME: 1144 PATIENT: SAÚL GILES UNIT #: [id number] ROOM/BED: [place] [address] : 43 AGE: 76 SEX: F ATTEND: Leah More MD ADM AUTHOR: Jd Alva MD * ALL edits or amendments must be made on the [employer]/computer document * Subjective Chief complaint: CABG/MVR HPI: 76-year-old morbidly obese f emale with history of HTN, HL, IDDM, smoking, RONA on CPAP and home O2 as needed, macular degeneration , Crohn's disease on immunosuppressant medication s, and chronic Afib s/p ablation and PPM (on Xarelto ), who was admitted recently with heart failure symptoms. Patient underwent elective cardiac cath that s howed severe multivessel coronary artery disease not suitable for percutaneous intervention. 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 She went for surgical revascularization today and preop JORDEN revealed severe mitral regurgitation. After discussing new findings with family, patient underwent MVR (31 M agna valve), CABG x 1 (ROBERTS-LAD), ILAA and pericardectomy on 12/19/2021. Has EF of 45%. Crystalloid 1 L, urine output 700, Cell Saver 700. She is a-paced at [employer]. Surgery went well and patient was transferred to CVICU pos top in a stable surgical condition. She is currently intubated on 2 mics of epine phrine, 2 mics of Levophed and insulin drip. CI 3.0, SvO2 in 60%s, CVP 15 and PAP in 60s. Comments: remains in bed on bipap since yesterday UOP 50-75/hr, given lasix, total 750 cc CTs output 70/30/30 cc run of 7 beats of Vtac this am on vasopressin gtt, down to 0.02 units off insulin gtt today Objective General VS/I O Last Documented: Result Date Time Pulse Ox 96 12/21 932 B/P 139/47 12/21 932 B/P Mean 71 12/21 932 Temp 98.8 12/21 932 Pulse 75 12/21 932 Resp 27 12/21 932 FiO2 60 12/22 799 O2 Delivery High flow nasal cannula 12/22 799 O2 Flow Rate 55 12/22 799 24 hour I O ending at 0700: 12/21 1900 Intake Total 1284.00 Output Total 1040 549 Balance -1040 735.00 Intake, IV 804.00 Intake, Oral 480 Output, Chest 100 296 Tube Drainage Output, Urine 940 253 Patient 124.3 kg 119.748 kg Weight Weight Bed scale Measurement Method PATIENT WEIGHT: Weight (lb): 274 Weight (oz): 0.55 Weight (kg): 124.300 Medications: Active Meds + DC'd Last 24 Hrs Cyanocobalamin (Vitamin B-12 500 mcg tab) 500 MC G DAILY PO Ferrous Sulfate (FERROUS SULFATE) 325 MG DAILY P O Amino Acids/Electrolytes/Dextrose (TPN ADULT- CE NTRAL 1000ML) 840 ML 2200 IV Bisacodyl (DULCOLAX) 10 MG ONCE PRN RECTAL Insulin Human Lispro (HUMALOG) 0 Q6HR SUBQ Magnesium Hydroxide (MILK OF MAGNESIA) 30 ML ONC E PRN PO Dextrose/Water (Dextrose 10% 1,000 mL) 1,000 ML ASDIR PRN IV Insulin Human Lispro (HUMALOG) 0 AC HS SUBQ (DC) Miscellaneous Information (TPN (Central) PHARMAC Y TO DOSE) 1 EACH ASDIR IV Albumin Human (ALBUMINAR 25%) 100 ML ONCE ONE IV (DC) Furosemide (LASIX 40 mg/4 mL INJECTION) 60 MG ON CE ONE IV (DC) Albumin Human (ALBUMINAR 25%) 100 ML ONCE ONE IV (DC) Furosemide (LASIX 40 mg/4 mL INJECTION) 60 MG ON CE ONE IV (DC) Clopidogrel Bisulfate (Plavix) 75 MG DAILY PO Polyethylene Glycol (MIRALAX) 17 GM DAILY PO Dopamine HCl/Dextrose (DOPamine 400MG/D5W 250ML) 250 ML ASDIR IV Pantoprazole (PROTONIX) 40 MG DAILY@0600 PO Docusate Sodium (COLACE) 100 MG BID PO Metoprolol Tartrate (LOPRESSOR) 12.5 MG Q12HR PO Sennosides (Senna Lax 8.6 MG TABLET) 17.2 MG BED TIME PO Milrinone Lactate/Dextrose (MILRINONE 20MG/D5W 1 00ML) 100 ML ASDIR IV ( CKD) Vasopressin (VASOSTRICT 20 Unit/NS 100ML) 100 ML ASDIR IV (CKD) Aspirin (ASPIRIN) 81 MG DAILY PO Gabapentin (NEURONTIN) 200 MG BID 9A 5P PO Amiodarone HCl (CORDARONE) 200 MG TID PO Tramadol HCl (ULTRAM) 25 MG Q4H PRN PRN PO Tramadol HCl (ULTRAM) 50 MG Q4H PRN PRN PO Mupirocin (BACTROBAN 2% 22 GM OINTMENT) 1 APPLIC BID NASAL Acetaminophen (TYLENOL) 650 MG Q4H PRN PRN PO Acetaminophen (TYLENOL) 650 MG Q4H PRN PRN RECTA L Calcium Chloride (CALCIUM CHLORIDE) 1 GM ASDIR P RN IV Chlorhexidine Gluconate (PERIDEX) 15 ML Q2H MM ( DC) Dextrose/Water (DEXTROSE 10% IN WATER) 125 ML DIR PRN IV (CKD) Dextrose/Water (DEXTROSE 10% IN WATER) 250 ML DIR PRN IV (CKD) Epinephrine (ADRENALIN CHLORIDE) 5 MG ASDIR IV Dextrose/Water (DEXTROSE 5% WATER) 245 ML Glucagon (GLUCAGON) 1 MG ASDIR PRN IM Insulin Human Regular (HumuLIN R) 100 UNIT ASDIR IV (DC) Sodium Chloride (SODIUM CHLORIDE 0.9%) 99 ML Magnesium Sulfate (MAGNESIUM SULFATE 4GM/SWFI 10 0ML) 100 ML ASDIR PRN IV Magnesium Sulfate (MAGNESIUM SULFATE 2GM/SWFI 50 ML) 50 ML ASDIR PRN IV Magnesium Sulfate/Dextrose (MAGNESIUM SULFATE 1G M/D5W 100ML) 100 ML ASDIR PRN IV Nitroglycerin/Dextrose (NITROGLYCERIN 50,000MCG/ D5W 250ML) 250 ML ASDIR IV Norepinephrine Bitartrate (NOREPINEPHRINE 8 MG/N S 250 ML) 250 ML TITRATE IV Potassium Chloride (KCL 20MEQ/SWFI 100ML) 100 ML ASDIR PRN IV Sodium Bicarbonate (SODIUM BICARBONATE) 50 MEQ A SDIR PRN IV Sodium Chloride (SODIUM CHLORIDE 0.9%) 1,000 ML .Q20H IV Sodium Chloride (SODIUM CHLORIDE 0.9%) 250 ML Q2 4H IV Atorvastatin Calcium (LIPITOR) 40 MG 2100 PO Ceftriaxone Sodium (ROCEPHIN 1000MG VIAL) 1,000 MG Q24H IV Sodium Chloride (SODIUM CHLORIDE) 10 ML Ondansetron HCl (ZOFRAN) 4 MG Q6H PRN PRN IV Amlodipine Besylate (NORVASC) 5 MG DAILY PO Vancomycin HCl (VANCOMYCIN HCL) 1,750 MG PREOP O NCALL IV (CKD) Sodium Chloride (NS 0.9%) 500 ML Results Findings/data: Laboratory Tests 12/21 12/21 12/20 12/20 0210 0102 2111 1704 Blood Gas Puncture Site Art Line [place] Art Line Art Line O2 Saturation (90 - 100 %) 96.8 96.0 96.5 ABG pH (7.35 - 7.45) 7.341 L 7.328 L 7.318 L ABG pCO2 (35.0 - 45 mmHg) 50.1 *H 50.9 *H 55.5 *H ABG pO2 (80 - 100.0 mmHg) 95.7 89.7 95.3 ABG PO2/FiO2 Ratio (mm/Hg) 159.50 149.50 158.83 ABG HCO3 (22.0 - 26.0 MMOL/L) 27.1 H 26.7 H 28. 5 *H ABG Total CO2 28.7 28.3 30.2 ABG Base Excess (-4.0 - 4.0 MMOL/L) 1.4 0.8 2.4 ABG Hematocrit (33.0 - 45.0 %) 25 L 17 L 23 L 2 2 L ABG Hemoglobin (11.0 - 15.0 G/DL) 8.4 L 5.9 L 7 .8 L 7.5 L Martin Test N/A VBG pH (7.33 - 7.45) 7.329 L VBG pCO2 (43 - 47 mmHg) 39.5 L VBG pO2 (10 - 50 mmHG) 33.3 VBG HCO3 (22 - 27 MMOL/L) 20.8 L POC VBG Total CO2 22.0 VBG O2 Saturation (60 - 80 %) 60.0 VBG Base Excess (-4.0 - 4.0 MMOL/L) -5.2 L VBG Temperature (F) 98.6 Sodium (134 - 147 MEQ/L) 143 142 142 Potassium (3.4 - 5.0 MEQ/L) 4.1 4.2 4.3 Chloride (100 - 108 MEQ/L) 107 107 108 Ionized Calcium (1.12 - 1.32 MMOL/L) 1.36 H 1.3 2 1.34 H Lactic Acid (0.9 - 1.7 mmol/l) 0.8 L 0.6 L 0.7 L Temperature (F) 98.7 98.7 Respiration Rate (/MIN) 25 O2 Delivery Device BiPAP BiPAP BiPAP BiPAP Vent Rate (/MIN) 25 25 25 FiO2 (%) 60 60 60 60 Inspiratory Time 0.6 Tidal Volume (ml) 550 550 PEEP (cmH2O) 6 12/20 12/20 1512 1203 Blood Gas Puncture Site Art Line Art Line O2 Saturation (90 - 100 %) 99.8 98.8 ABG pH (7.35 - 7.45) 7.318 L 7.291 *L ABG pCO2 (35.0 - 45 mmHg) 52.0 *H 59.2 *H ABG pO2 (80 - 100.0 mmHg) 244.0 *H 137.8 H ABG PO2/FiO2 Ratio (mm/Hg) 244.00 137.80 ABG HCO3 (22.0 - 26.0 MMOL/L) 26.7 H 28.8 *H ABG Total CO2 28.3 30.7 ABG Base Excess (-4.0 - 4.0 MMOL/L) 0.6 2.1 ABG Hematocrit (33.0 - 45.0 %) 29 L 24 L ABG Hemoglobin (11.0 - 15.0 G/DL) 9.8 L 8.3 L Martin Test N/A Sodium (134 - 147 MEQ/L) 143 142 Potassium (3.4 - 5.0 MEQ/L) 4.2 4.5 Chloride (100 - 108 MEQ/L) 109 H 108 Ionized Calcium (1.12 - 1.32 MMOL/L) 1.33 H 1.3 6 H Lactic Acid (0.9 - 1.7 mmol/l) 0.5 L 0.6 L Temperature (F) 97.3 Respiration Rate (/MIN) 25 O2 Delivery Device BiPAP CPAP Vent Rate (/MIN) 25 25 FiO2 (%) 100 100 Inspiratory Time 0.6 Tidal Volume (ml) 550 550 PEEP (cmH2O) 6 6 Pressure Support (cmH2O) 20 Laboratory Tests 12/21 12/21 12/21 12/21 12/21 0925 0817 0409 0214 0210 Chemistry Sodium (134 - 147 mEq/L) 145 Potassium (3.4 - 5.0 mEq/L) 4.3 Chloride (100 - 108 mEq/L) 107 Carbon Dioxide (21 - 33 mEq/l) 26 Anion Gap (0 - 20) 16 BUN (7 - 18 mg/dL) 30 H Creatinine (0.6 - 1.3 mg/dL) 1.6 H POC Creatinine (0.6 - 1.0 mg/dL) 1.8 H Glomerular Filtr Rate (70 - 80) 31.2 L Glucose (70 - 110 mg/dL) 117 H POC Glucose (70 - 110 MG/DL) 114 H 113 H POC Glucose (mg/dL) (70 - 110 MG/DL) 113 H Calcium (8.0 - 10.5 mg/dL) 10.2 Ionized Calcium Gigi (1.09 - 1.30 MMOL/L) 1.17 Magnesium (1.80 - 2.40 mg/dL) 2.41 H Total Bilirubin (0.0 - 1.0 mg/dL) 0.50 Direct Bilirubin (0.0 - 0.30 MG/DL) 0.30 Indirect Bilirubin (MG/DL) 0.20 AST (15 - 37 IUnit/L) 32 ALT (30 - 65 IUnit/L) 12 L Total Alk Phosphatase (20 - 125 IUnit/L) 50 Total Protein (6.4 - 8.2 g/dL) 7.1 Albumin (3.4 - 5.0 g/dL) 4.60 12/21 12/20 12/20 12/20 12/20 0102 2207 2120 2119 1909 Chemistry Sodium (134 - 147 mEq/L) 145 Potassium (3.4 - 5.0 mEq/L) 4.4 Chloride (100 - 108 mEq/L) 108 Carbon Dioxide (21 - 33 mEq/l) 27 Anion Gap (0 - 20) 14 BUN (7 - 18 mg/dL) 29 H Creatinine (0.6 - 1.3 mg/dL) 1.8 H POC Creatinine (0.6 - 1.0 mg/dL) 1.4 H 2.0 H Glomerular Filtr Rate (70 - 80) 27.2 L Glucose (70 - 110 mg/dL) 130 H POC Glucose (70 - 110 MG/DL) 126 H 136 H POC Glucose (mg/dL) (70 - 110 MG/DL) 128 H Calcium (8.0 - 10.5 mg/dL) 9.8 12/20 12/20 12/20 12/20 12/20 1704 1617 1512 1352 1203 Chemistry POC Creatinine (0.6 - 1.0 mg/dL) 1.9 H 1.9 H 2. 0 H POC Glucose (70 - 110 MG/DL) 139 H 167 H POC Glucose (mg/dL) (70 - 110 MG/DL) 136 H 144 H 175 H 12/20 1155 Chemistry Sodium (134 - 147 mEq/L) 144 Potassium (3.4 - 5.0 mEq/L) 4.6 Chloride (100 - 108 mEq/L) 109 H Carbon Dioxide (21 - 33 mEq/l) 27 Anion Gap (0 - 20) 13 BUN (7 - 18 mg/dL) 26 H Creatinine (0.6 - 1.3 mg/dL) 1.7 H Glomerular Filtr Rate (70 - 80) 29.1 L Glucose (70 - 110 mg/dL) 182 H Calcium (8.0 - 10.5 mg/dL) 9.2 Laboratory Tests 12/21 12/20 0214 1715 Hematology WBC (4.5 - 11.0 x10 3/uL) 9.2 8.0 RBC (3.54 - 5.02 x10 6/uL) 2.23 L 2.14 L Hgb (11.0 - 15.0 g/dL) 8.2 L 7.5 L Hct (33.0 - 45.0 %) 24.8 L 23.7 L MCV (81.0 - 99.0 fL) 111.2 H 110.7 H MCH (27.0 - 33.0 pg) 36.8 H 35.0 H MCHC (33.0 - 37.0 g/dL) 33.1 31.6 L RDW (11.5 - 14.5 %) 16.1 H 15.9 H Plt Count (150 - 400 x10 3/uL) 71 L 64 L MPV (7.0 - 9.0 fL) 12.2 H 11.3 H Neut % (Auto) (56.0 - 77.0 %) 88.2 H 87.2 H Lymph % (Auto) (14.0 - 32.0 %) 2.9 L 2.4 L Barron % (Auto) (4.8 - 9.0 %) 7.9 9.7 H Eos % (Auto) (0.3 - 3.7 %) 0.1 L 0.1 L Baso % (Auto) (0.0 - 2.0 %) 0.1 0.0 Neut # (Auto) (2.0 - 7.6 x10 3/uL) 8.12 H 6.93 Lymph # (Auto) (1.0 - 3.8 x10 3/uL) 0.27 L 0.19 L Barron # (Auto) (0.1 - 0.8 x10 3/uL) 0.73 0.77 Eos # (Auto) (0.0 - 0.2 x10 3/uL) 0.01 0.01 Baso # (Auto) (0.0 - 0.2 x10 3/uL) 0.01 0.00 Abs Immat Gran (auto) (0.00 - 0.03 x10 3/uL) 0. 07 H 0.05 H Add Manual Diff NO NO Immature Gran % (0.0 - 2.0 %) 0.8 0.6 Nucleated RBC % (0 - 0 %) 0.0 0.3 H Nucleated RBCs # (Man) (0.0 - 0.1 x10 3/uL) 0.0 0 0.02 Immature Plt Fraction (0.9 - 11.2 %) 8.9 8.7 Laboratory Tests 12/20 1155 Urines Urine Color (YEL/STRAW) YELLOW Urine Appearance (CLEAR) CLOUDY H Urine pH (5.0 - 7.0) 5.0 Ur Specific [place] (1.005 - 1.030) 1.030 Urine Protein (NEGATIVE) 2+ H Urine Glucose (UA) (NEGATIVE) NEGATIVE Urine Ketones (NEGATIVE) 1+ H Urine Blood (NEGATIVE) 4+ H Urine Nitrite (NEGATIVE) NEGATIVE Urine Bilirubin (NEGATIVE) NEGATIVE Urine Urobilinogen (0.2 - 1.0 mg/dL) 0.2 Ur Leukocyte Esterase (NEGATIVE) 3+ H Ur Random Creatinine (mg/dL) 116.2 Ur Random Sodium (MEQ/L) < 10 Laboratory Tests 12/21/21 0214: [Embedded Image Not Available] 12/20/21 2120: [Embedded Image Not Available] 12/20/21 1715: [Embedded Image Not Available] 12/20/21 1155: [Embedded Image Not Available] Microbiology: 12/18 1830 URINE: Urine Culture - COMP YEAST 12/18 1436 NASAL: MRSA DNA Surveillance Screen - CAN Cancelled: Cancelled via OE: Order Cancelled by MD Radiology data Recent Impressions: RADIOLOGY - XR CHEST 1 V 12/21 0647 Report Impression - Status: SIGNED Entered: 12/21/2021 0700 IMPRESSION: Stable examination. Impression By: [email or web address] - Nancy Bender Free Text Obj Notes Free Text Obj Notes: General appearance: elderly female in no acute d istress, interactive HEENT: atraumatic, normocephalic, moist mucosal membranes Neck: full range of motion, supple/no meningismu s Cardiovascular: S1S2 regular rate and rhythm, a- paced Respiratory: symmetric expansion, no acute respi ratory distress Abdomen: soft, obese, non-tender, no distention, no guarding Genitourinary: [place] with clear urine Extremities: pedal pulses palpable, moves all, n o clubbing, no cyanosis, LE edema Musculoskeletal: normal inspection, no muscle sp asm 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 S/P MVR (mitral valve replacement) 2. S/P CABG x 1 3. Postoperative pulmonary dysfunction after ca rdiac surgery 4. Severe mitral regurgitation 5. CAD (coronary artery disease) 6. CKD (chronic kidney disease) 7. Immunosuppressed status 8. RONA on CPAP 9. Chronic a-fib 10. Crohn disease Free text A P: 76-year-old morbidly obese f emale with history of HTN, HL, IDDM, smoking, RONA on CPAP and home O2 as needed, macular degeneration , Crohn's disease on immunosuppressant medication s, and chronic Afib s/p ablation and PPM (on Xarelto ), who was admitted recently with heart failure symptoms. Patient underwent elective cardiac cath that s howed severe multivessel coronary artery disease not suitable for percutaneous intervention. 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 She went for surgical revascularization today and preop JORDEN revealed severe mitral regurgitation. After discussing new findings with family, patient underwent MVR (31 M agna valve), CABG x 1 (ROBERTS-LAD), ILAA and pericardectomy on 12/19/2021. Has EF of 45%. Crystalloid 1 L, urine output 700, Cell Saver 700. She is a-paced at [facility]. Surgery went well and patient was transferred to CVICU pos top in a stable surgical condition. She is currently intubated on 2 mics of epine phrine, 2 mics of Levophed and insulin drip. CI 3.0, SvO2 in 60%s, CVP 15 and PAP in 60s. Neuro: appears intact, keep off sedation, multim odal pain control, minimize narcotics use Respiratory: sats well on minimal vent s ettings, CPAP trial as tolerated, plan for extubation, may need bipap, obtain serial AB Gs, CXR reviewed Cardiovascular: Hemodynamically unstable on vaso pressors, attempt to wean, monitor PAP and hemodynamic parameters, keep CTs to suction Renal: strict I/Os, monitor Cr and electrolytes, mild lactic acidosis, trend LA, resuscitate as needed, home diuretics on hold GI: bedside swallow then ora l diet after extubation, keep NPO if required bipap, bowel regimen ID: trend WBC, continue shirley op antibiotics, low threshold for infection work-up, treated for UTI Hem: acute postop anemia and thrombocytopenia, m onitor Hgb and CTs output, no evidence of active bleed, tr ansfuse as needed, holding off on immunosuppressive meds Endo: Blood glucose control with insulin gtt per protocol Misc: PTOT consult, DVT and GI ppx with DAPT and PPI (home med) 12/20 Appears neuro intact, multimodal pain co ntrol, monitor for CO2 narcosis, avoid narcotics Extubated successfully, required BiPAP f or hypoxia and hypercapnia, attempt to wean, obtain serial ABGs, CXR reviewed, has pulm onary edema Improved hemodynamics, off L evophed/epinephrine, continue vasopressin, inotropes with milrinone, monitor hemodynamic parameters a nd wean per CT surgery Mild MARCELLO, Cr uptrending with marginal urine outp ut, started dopamine drip Keep NPO for now while on BiPAP, bowel regimen, monitor LFTs No fevers or leukocytosis, given periop antibiot ics, on antibiotics for UTI Hemoglobin and platelets rui nding down, no evidence of active bleed, monitor CTs output Blood glucose control with insulin drip PT/OT and out of bed to chair if tolerated DVT and GI prophylaxis with DAPT and PPI 12/21 Appears neuro intact, multimodal pain co ntrol, monitor for CO2 narcosis, avoid narcotics BiPAP for hypercapnia, attempt to wean, keep O2 sats >90%, obtain serial ABGs, CXR reviewed HD stable off vasopressors and inotropes, turn o ff vasopressin, monitor for arrhythmia Mild MARCELLO, Cr trending down, improved urine outpu t with diuresis, off dopamine drip, renal on board Keep NPO while on BiPAP, otherwise, will start o ral diet, start TPN per CT surgery No fevers or leukocytosis, complete antibiotic c ourse for UTI Hemoglobin and platelets jaja ear stable, no evidence of active bleed, monitor CTs output Blood glucose control with sliding scale insulin PT/OT and out of bed to chair if tolerated DVT and GI prophylaxis with DAPT and PPI Patient was seen during rounds with CT s [place] team, Dr. Romero, and he is in agreement with the plan of care Consultants: cardiology, cardiovascular surgery Plan discussed with: patient, family, co nsultants, nurse, interdisc care team, pharmacy/pharmacist Critical care time: Minutes: 37 Electronically Signed by Jd Alva MD on 12/13 05/06 at 0621 RPT #:[id number] END OF REPORT 2021-12-21 11:37:00-00:[address] [facility] ([facility]) Pharmacy Prog.Note-Nutrition REPORT#:[id number] REPORT STATUS: Signed DATE:12/21/21 TIME: 1137 PATIENT: SAÚL GILES UNIT #: [id number] ROOM/BED: [place] [id number] : 43 AGE: 76 SEX: F ATTEND: Leah More MD ADM AUTHOR: Vanessa Morales [facility] * ALL edits or amendments must be made on the [employer] document * Nutrition Support Nutrition Support Medication therapy: adult PN Indication for treatment: Alberto using an "X" for all appropriate indicatio ns: Evidence of PCM and enteral nutrition (EN) not feasible Malnourished surgical patient able to have PN 5 -7 days preoperatively and EN not feasible PN for anticipated need of >5-7 days and EN not feasible X Supplemental PN if unable to meet EN goal with in 7-10 days Other: Current therapy: Initiation of TPN Day of therapy: Day 1 Weight: Actual weight (kg): 124.3 Vital signs/I O: 24 hour I O ending at 0700: 12/21 1900 Intake Total 1284.00 Output Total 1040 549 Balance -1040 735.00 Intake, IV 804.00 Intake, Oral 480 Output, Chest 100 296 Tube Drainage Output, Urine 940 253 Patient 124.3 kg 119.748 kg Weight Weight Bed scale Measurement Method Vital Signs: Date Time Temp Pulse Resp B/P B/P Pulse O2 O2 F low FiO2 Mean Ox Delivery Rate 12/21 932 37.1 75 27 139/47 71 96 12/21 929 37.1 75 25 152/48 73 97 12/21 914 37.1 72 26 129/46 69 96 12/21 899 37.1 69 25 142/48 71 97 12/21 844 37.2 69 24 145/47 71 97 12/21 829 37.2 74 21 153/45 72 97 12/21 814 37.2 72 28 141/36 64 95 12/22 799 High flow 55 60 nasal cannula 12/22 799 37.3 75 25 149/46 73 97 12/21 0645 37.4 72 26 148/49 73 94 12/21 729 37.4 74 18 152/55 84 97 12/21 714 37.4 69 25 158/53 82 100 12/21 699 37.4 69 25 171/65 94 100 12/21 599 37.4 73 25 165/61 88 99 12/21 0500 37.3 72 29 150/55 81 95 12/21 0400 37.4 70 25 173/60 91 99 10/09 0359 69 100 60 10/09 0359 100 BiPAP 60 10/09 0300 37.3 69 25 165/57 84 100 10/09 0200 37.4 73 27 175/63 93 99 10/09 0100 37.3 76 26 162/59 86 99 10/09 0015 26 10/ 0000 37.3 75 172/61 92 99 10/08 2310 74 97 60 10/08 2300 37.3 75 26 173/58 88 97 10/08 2211 155/51 76 10/08 2200 37.3 73 34 113/46 68 85 10/08 2100 37.3 75 26 156/52 78 98 10/08 1999 BiPAP 60 10/08 1999 37.2 75 25 135/48 69 98 10/08 1922 75 99 60 10/08 1922 99 BiPAP 60 10/08 1915 25 10/08 1900 37.2 72 90/51 62 97 10/08 1835 37.2 69 25 114/42 58 100 10/08 1830 37.2 74 25 116/43 60 100 10/08 1815 37.2 75 26 117/42 59 97 10/08 1800 37.1 72 25 106/40 55 97 10/08 1745 37.1 73 25 106/39 54 99 10/08 1730 37.1 75 25 113/37 54 99 10/08 1715 37.1 76 26 111/37 54 100 10/08 1713 76 100 60 10/08 1700 37.0 72 25 108/42 58 99 10/08 1645 37.0 73 29 106/42 57 99 10/08 1630 37.0 73 26 104/42 57 99 10/08 1615 37.0 69 25 101/41 55 98 10/08 1600 37.0 69 26 99/40 52 100 10/08 1545 37.0 69 25 96/35 48 99 10/08 1530 36.9 69 26 97/34 48 100 10/08 1515 36.9 74 27 95/36 50 100 10/08 1503 69 100 60 10/08 1500 36.9 75 26 106/38 54 100 10/08 1445 36.8 73 26 98/35 50 100 10/08 1430 36.8 74 25 107/37 53 100 10/08 1415 36.7 72 26 112/43 58 100 10/08 1400 36.7 74 25 109/42 57 100 12/20 1345 36.7 73 29 105/42 58 100 12/20 1330 36.6 73 25 134/47 68 100 12/20 1315 36.6 72 25 124/47 67 100 12/20 1300 36.5 72 25 129/46 66 100 12/20 1245 36.5 75 25 127/45 65 100 12/20 1239 69 100 100 12/20 1230 36.4 72 25 128/44 63 100 12/20 1215 36.4 72 25 122/41 60 100 12/20 1200 36.3 73 26 116/37 55 100 12/20 1145 36.3 72 25 114/37 54 100 Labs: Laboratory Tests 12/21 12/20 12/20 12/20 12/19 0214 2120 1155 0315 2245 Chemistry Sodium (134 - 147 mEq/L) 145 145 144 144 146 Potassium (3.4 - 5.0 mEq/L) 4.3 4.4 4.6 4.8 4.8 Chloride (100 - 108 mEq/L) 107 108 109 H 108 10 8 Carbon Dioxide (21 - 33 mEq/l) 26 27 27 28 29 BUN (7 - 18 mg/dL) 30 H 29 H 26 H 21 H 21 H Creatinine (0.6 - 1.3 mg/dL) 1.6 H 1.8 H 1.7 H 1.4 H 1.1 Glucose (70 - 110 mg/dL) 117 H 130 H 182 H 179 H 186 H 12/19 12/19 1257 0440 Chemistry Sodium (134 - 147 mEq/L) 147 143 Potassium (3.4 - 5.0 mEq/L) 3.6 4.8 Chloride (100 - 108 mEq/L) 109 H 105 Carbon Dioxide (21 - 33 mEq/l) 28 32 BUN (7 - 18 mg/dL) 18 16 Creatinine (0.6 - 1.3 mg/dL) 0.8 0.9 Glucose (70 - 110 mg/dL) 153 H 136 H Laboratory Tests Test Result Date Time Chemistry Calcium (8.0 - 10.5 mg/dL) 10.2 12/21 0214 Phosphorus (2.5 - 4.9 MG/DL) 3.9 12/19 2245 Magnesium (1.80 - 2.40 mg/dL) 2.41 H 12/21 021 Albumin (3.4 - 5.0 g/dL) 4.60 12/21 0214 Triglycerides: Test Result Date Time Chemistry Triglycerides (40 - 150 mg/dL) 67 12/18 0310 Laboratory Tests 12/21 0409 0210 2207 2119 Chemistry POC Glucose (70 - 110 MG/DL) 114 H 113 H 126 H POC Glucose (mg/dL) (70 - 110 MG/DL) 113 H 128 H 12/20 12/20 12/20 12/20 12/20 1909 1704 1617 1512 1352 Chemistry POC Glucose (70 - 110 MG/DL) 136 H 139 H 167 H POC Glucose (mg/dL) (70 - 110 MG/DL) 136 H 144 H 12/20 1203 Chemistry POC Glucose (mg/dL) (70 - 110 MG/DL) 175 H Diet: regular Calorie needs: Pending assembler gold frame assessment Protein needs: Pending assembler gold frame assessment IV access: Right IJ CVC Treatment plan: consult, initiation of therapy Regimen: CAPS Custom Formulation Rate: 35 mL/hr (840 mL/day) Total kcal: 642 kcal/day Amino acids 50 g/day Dextrose 130 g/day Lipids g/day Sodium chloride 30 mEq/day Sodium acetate 30 mEq/day Magnesium sulfate mEq/day Calcium gluconate mEq/day Potassium chloride mEq/day Potassium acetate mEq/day Potassium phosphate mmol/day Sodium phosphate -- mmol/day MVI 10 mL daily Trace elements 1 mL daily Insulin, regular -- units Orders outside of TPN: Medium-intensity sliding scale insulin AC HS Ondansetron 4 mg IV q6h PRN (last administered 1 at 1229) Pantoprazole 40 mg PO daily 12/20: Furosemide 10 mg IV x1 12/20: Furosemide 40 mg IV x1 12/20: Furosemide 60 mg IV x1 12/21: Furosemide 60 mg IV x1 Rationale: HPI: This 76-year-old female , from [facility], with past medical history of macular degeneration, obe sity, obstructive sleep apnea (CPAP at home), former smoker, hypertension, hyperl ipidemia, diabetes, Crohn's disease, chronic atrial fibrillation (status post 3 ablations in the past and on Xarelto), and pacemaker placement who had a recent admission to the hosp ital with heart failure symptoms. She has been admitted to the hospital for elective heart cath. Coronary angiogram showed severe multivessel cor onary artery disease not suitable for percutaneous intervention. The patient is now status post CABG x1 and MVR on 12/[address] Romero. Due to the pa philip s dependence on BiPAP postoperatively, Dr. Romero would like to initiate TPN to meet this patient s nutritional needs. Pharmacy has been consulted for the dosing and monitoring of TPN. 12/21 Assessment and Plan Macronutrients: Will initiate TPN at 35 mL/hr (840 mL/day).Will initiate amino acids and dextrose at 50 g/day and 130 g/day, re spectively. Will not yet initiate lipids. This will provide 642 kcal per day. Will advance TPN in the coming days as tolerated. Triglycerides 67 on ; monitor at least weekly while on TPN. Electrolytes:Magnesium slightly elevated at 2.41 this morning. All other electrolytes are within normal limits, but sodiu m, chloride, and calcium are near the upper limit of norm al at 145, 107 and 10.2, respectively. Electrolytes in TPN as outlined above. Supplement add itional electrolytes outside of TPN as indicated. Renal I/O: BUN/SCr 30/1.6 (BUN trending up, SCr has been elevated postoperatively, but appears to now be trending down). Urine output with 1193 mL and chest tube output with 395 mL documented ove r the past 24 hours. Will concentrate TPN as much as p ossible given recent cardiovascular surgery and need for frequent diuresis. The patient will receive 840 mL/day of fluids from TPN. Hepatic: Tbili 0.50, AST/ALT 32/12, Alk phos 50, and albumin 4.60) on 12/21; monitor at least weekly while on TPN Glycemic Control: Serum bloo d glucose was 117 mg/dL this morning. Hoepk-wg-enjv glucose has ranged 113-191 mg/dL over the past 2 4 hours. 0 units of sliding scale insulin administered over the past 24 hour s. Will change sliding scale insulin from AC HS to q6h with the initiation of TPN. Will not add insulin to TPN at this time. at 1134 RPT #:[id number] END OF REPORT 2021-12-21 08:43:00-00:[address] [facility] ([facility]) Cardiology Progress Note REPORT#:[id number] REPORT STATUS: Signed DATE:12/21/21 TIME: 0843 PATIENT: SAÚL GILES UNIT #: [id number] ROOM/BED: [place] [id number] : 43 AGE: 76 SEX: F ATTEND: Leah More MD ADM AUTHOR: Jayna Gonzales CHILD WATCH ATTENDANT * ALL edits or amendments must be made on the [employer] document * Subjective Chief complaint: Patient is on Bipap 25/5, 60%. Patient reports: No: chest pain, shortness of breath. Nursing reports: No: complaints. Comments: Pt is resting w/o distress. Bedside RN reports pt was on Teleflex lasted jaja rx 1 hr early today. Pt is currently on Vasopressin 0.02 units/min an d RHI 2 units/h. Telemetry shows 100% V paced.` CT x 3. Objective General VS/I O: 24 hour I O ending at 0700: 12/20 1900 12/21 699 Intake Total 1284.00 Output Total 549 1040 Balance 735.00 -1040 Intake, IV 804.00 Intake, Oral 480 Output, Chest 296 100 Tube Drainage Output, Urine 253 940 Patient 119.748 kg 124.3 kg Weight Weight Bed scale Measurement Method Vital Signs: Date Time Temp Pulse Resp B/P B/P Pulse O2 O2 F low FiO2 Mean Ox Delivery Rate 12/21 932 98.8 75 27 139/47 71 96 12/21 929 98.8 75 25 152/48 73 97 12/21 914 98.8 72 26 129/46 69 96 12/21 899 98.8 69 25 142/48 71 97 12/21 844 99.0 69 24 145/47 71 97 12/21 829 99.0 74 21 153/45 72 97 12/21 814 99.0 72 28 141/36 64 95 12/22 799 High flow 55 60 nasal cannula 12/22 799 99.1 75 25 149/46 73 97 10/09 0745 99.3 72 26 148/49 73 94 10/09 0730 99.3 74 18 152/55 84 97 10/09 0715 99.3 69 25 158/53 82 100 10/09 0700 99.3 69 25 171/65 94 100 10/09 0600 99.3 73 25 165/61 88 99 10/ 0500 99.1 72 29 150/55 81 95 10/09 0400 99.3 70 25 173/60 91 99 10/09 0359 69 100 60 10/ 0359 100 BiPAP 60 10/ 0300 99.1 69 25 165/57 84 100 10/ 0200 99.3 73 27 175/63 93 99 10/ 0100 99.1 76 26 162/59 86 99 10/ 0015 26 10/ 0000 99.1 75 172/61 92 99 10/08 2310 74 97 60 10/08 2300 99.1 75 26 173/58 88 97 10/08 2211 155/51 76 10/08 2200 99.1 73 34 113/46 68 85 10/08 2100 99.1 75 26 156/52 78 98 10/08 1999 BiPAP 60 10/08 1999 99.0 75 25 135/48 69 98 10/08 1922 75 99 60 10/08 1922 99 BiPAP 60 10/08 1915 25 10/08 1900 99.0 72 90/51 62 97 10/08 1835 99.0 69 25 114/42 58 100 10/08 1830 99.0 74 25 116/43 60 100 10/08 1815 99.0 75 26 117/42 59 97 10/08 1800 98.8 72 25 106/40 55 97 10/08 1745 98.8 73 25 106/39 54 99 10/08 1730 98.8 75 25 113/37 54 99 10/08 1715 98.8 76 26 111/37 54 100 10/08 1713 76 100 60 10/08 1700 98.6 72 25 108/42 58 99 10/08 1645 98.6 73 29 106/42 57 99 10/08 1630 98.6 73 26 104/42 57 99 10/08 1615 98.6 69 25 101/41 55 98 10/08 1600 98.6 69 26 99/40 52 100 10/08 1545 98.6 69 25 96/35 48 99 10/08 1530 98.4 69 26 97/34 48 100 10/08 1515 98.4 74 27 95/36 50 100 10/08 1503 69 100 60 10/08 1500 98.4 75 26 106/38 54 100 10/08 1445 98.2 73 26 98/35 50 100 10/08 1430 98.2 74 25 107/37 53 100 10/08 1415 98.1 72 26 112/43 58 100 10/08 1400 98.1 74 25 109/42 57 100 10/08 1345 98.1 73 29 105/42 58 100 10/08 1330 97.9 73 25 134/47 68 100 10/ 1315 97.9 72 25 124/47 67 100 10/08 1300 97.7 72 25 129/46 66 100 10/08 1245 97.7 75 25 127/45 65 100 10/08 1239 69 100 100 10/08 1230 97.5 72 25 128/44 63 100 10/ 1215 97.5 72 25 122/41 60 100 10/08 1200 97.3 73 26 116/37 55 100 10/08 1145 97.3 72 25 114/37 54 100 10/08 1130 97.3 72 25 102/33 48 100 PATIENT WEIGHT: Weight (lb): 274 Weight (oz): 0.55 Weight (kg): 124.300 Medications: Active Meds + DC'd Last 24 Hrs Cyanocobalamin (Vitamin B-12 500 mcg tab) 500 MC G DAILY PO Ferrous Sulfate (FERROUS SULFATE) 325 MG DAILY P O Bisacodyl (DULCOLAX) 10 MG ONCE PRN RECTAL Magnesium Hydroxide (MILK OF MAGNESIA) 30 ML ONC E PRN PO Albumin Human (ALBUMINAR 25%) 100 ML ONCE ONE I V (DC) Furosemide (LASIX 40 mg/4 mL INJECTION) 60 MG ON CE ONE IV (DC) Albumin Human (ALBUMINAR 25%) 100 ML ONCE ONE IV (DC) Furosemide (LASIX 40 mg/4 mL INJECTION) 60 MG ON CE ONE IV (DC) Furosemide (LASIX 40 mg/4 mL INJECTION) 0 .STK-M ED ONE IV (DC) Furosemide (LASIX 40 mg/4 mL INJECTION) 40 MG ON CE ONE IV (DC) Clopidogrel Bisulfate (Plavix) 75 MG DAILY PO Polyethylene Glycol (MIRALAX) 17 GM DAILY PO Dopamine HCl/Dextrose (DOPamine 400MG/D5W 250ML) 250 ML ASDIR IV Pantoprazole (PROTONIX) 40 MG DAILY@0600 PO Vancomycin HCl (VANCOMYCIN HCL) 1,000 MG Q12H IV (DC) Sodium Chloride (SODIUM CHLORIDE 0.9%) 250 ML Docusate Sodium (COLACE) 100 MG BID PO Metoprolol Tartrate (LOPRESSOR) 12.5 MG Q12HR PO Sennosides (Senna Lax 8.6 MG TABLET) 17.2 MG BED TIME PO Milrinone Lactate/Dextrose (MILRINONE 20MG/D5W 1 00ML) 100 ML ASDIR IV ( CKD) Vasopressin (VASOSTRICT 20 Unit/NS 100ML) 100 ML ASDIR IV (CKD) Aspirin (ASPIRIN) 81 MG DAILY PO Gabapentin (NEURONTIN) 200 MG BID 9A 5P PO Amiodarone HCl (CORDARONE) 200 MG TID PO Tramadol HCl (ULTRAM) 25 MG Q4H PRN PRN PO Tramadol HCl (ULTRAM) 50 MG Q4H PRN PRN PO Mupirocin (BACTROBAN 2% 22 GM OINTMENT) 1 APPLIC BID NASAL Acetaminophen (TYLENOL) 650 MG Q4H PRN PRN PO Acetaminophen (TYLENOL) 650 MG Q4H PRN PRN RECTA L Albumin Human (ALBUMINAR 25%) 25 GM ASDIR PRN IV (DC) Calcium Chloride (CALCIUM CHLORIDE) 1 GM ASDIR P RN IV Chlorhexidine Gluconate (PERIDEX) 15 ML Q2H MM ( DC) Dextrose/Water (DEXTROSE 10% IN WATER) 125 ML DIR PRN IV (CKD) Dextrose/Water (DEXTROSE 10% IN WATER) 250 ML DIR PRN IV (CKD) Epinephrine (ADRENALIN CHLORIDE) 5 MG ASDIR IV Dextrose/Water (DEXTROSE 5% WATER) 245 ML Glucagon (GLUCAGON) 1 MG ASDIR PRN IM Insulin Human Regular (HumuLIN R) 100 UNIT ASDIR IV (CKD) Sodium Chloride (SODIUM CHLORIDE 0.9%) 99 ML Magnesium Sulfate (MAGNESIUM SULFATE 4GM/SWFI 10 0ML) 100 ML ASDIR PRN IV Magnesium Sulfate (MAGNESIUM SULFATE 2GM/SWFI 50 ML) 50 ML ASDIR PRN IV Magnesium Sulfate/Dextrose (MAGNESIUM SULFATE 1G M/D5W 100ML) 100 ML ASDIR PRN IV Nitroglycerin/Dextrose (NITROGLYCERIN 50,000MCG/ D5W 250ML) 250 ML ASDIR IV Norepinephrine Bitartrate (NOREPINEPHRINE 8 MG/N S 250 ML) 250 ML TITRATE IV Potassium Chloride (KCL 20MEQ/SWFI 100ML) 100 ML ASDIR PRN IV Sodium Bicarbonate (SODIUM BICARBONATE) 50 MEQ A SDIR PRN IV Sodium Chloride (SODIUM CHLORIDE 0.9%) 1,000 ML .Q20H IV Sodium Chloride (SODIUM CHLORIDE 0.9%) 250 ML Q2 4H IV Atorvastatin Calcium (LIPITOR) 40 MG 2100 PO Ceftriaxone Sodium (ROCEPHIN 1000MG VIAL) 1,000 MG Q24H IV Sodium Chloride (SODIUM CHLORIDE) 10 ML Ondansetron HCl (ZOFRAN) 4 MG Q6H PRN PRN IV Amlodipine Besylate (NORVASC) 5 MG DAILY PO Vancomycin HCl (VANCOMYCIN HCL) 1,750 MG PREOP O NCALL IV (CKD) Sodium Chloride (NS 0.9%) 500 ML Status post: CABG, MVR, and ILAA Pacemaker: epicardial Physical Exam General appearance: sleeping comfortably ENT: moist mucosal membranes Neck: no JVD Cardiovascular: CV assessment: regular rate and rhythm Respiratory: On bipap Abdomen: obese Genitourinary: no flank pain, no urinary cathete r Upper extremity: UE assessment: normal temperature, no edema Lower extremity: LE assessment: edema Results Findings/Data: Laboratory Tests 12/20 12/20 12/20 12/20 1203 1512 1704 2119 Blood Gas Puncture Site Art Line Art Line Art Line Art Li ne O2 Saturation (90 - 100 %) 98.8 99.8 96.5 96.0 ABG pH (7.35 - 7.45) 7.291 *L 7.318 L 7.318 L 7 .328 L ABG pCO2 (35.0 - 45 mmHg) 59.2 *H 52.0 *H 55.5 *H 50.9 *H ABG pO2 (80 - 100.0 mmHg) 137.8 H 244.0 *H 95.3 89.7 ABG PO2/FiO2 Ratio (mm/Hg) 137.80 244.00 158.83 149.50 ABG HCO3 (22.0 - 26.0 MMOL/L) 28.8 *H 26.7 H 28 .5 *H 26.7 H ABG Total CO2 30.7 28.3 30.2 28.3 ABG Base Excess (-4.0 - 4.0 MMOL/L) 2.1 0.6 2.4 0.8 ABG Hematocrit (33.0 - 45.0 %) 24 L 29 L 22 L 23 L ABG Hemoglobin (11.0 - 15.0 G/DL) 8.3 L 9.8 L 7 .5 L 7.8 L Martin Test N/A N/A Sodium (134 - 147 MEQ/L) 142 143 142 142 Potassium (3.4 - 5.0 MEQ/L) 4.5 4.2 4.3 4.2 Chloride (100 - 108 MEQ/L) 108 109 H 108 107 Ionized Calcium (1.12 - 1.32 MMOL/L) 1.36 H 1.3 3 H 1.34 H 1.32 Lactic Acid (0.9 - 1.7 mmol/l) 0.6 L 0.5 L 0.7 L 0.6 L Temperature (F) 97.3 98.7 Respiration Rate (/MIN) 25 25 O2 Delivery Device CPAP BiPAP BiPAP BiPAP Vent Rate (/MIN) 25 25 25 25 FiO2 (%) 100 100 60 60 Inspiratory Time 0.6 0.6 Tidal Volume (ml) 550 550 550 550 PEEP (cmH2O) 6 6 6 Pressure Support (cmH2O) 20 12/21 12/21 0102 0210 Blood Gas Puncture Site [place] Art Line O2 Saturation (90 - 100 %) 96.8 ABG pH (7.35 - 7.45) 7.341 L ABG pCO2 (35.0 - 45 mmHg) 50.1 *H ABG pO2 (80 - 100.0 mmHg) 95.7 ABG PO2/FiO2 Ratio (mm/Hg) 159.50 ABG HCO3 (22.0 - 26.0 MMOL/L) 27.1 H ABG Total CO2 28.7 ABG Base Excess (-4.0 - 4.0 MMOL/L) 1.4 ABG Hematocrit (33.0 - 45.0 %) 17 L 25 L ABG Hemoglobin (11.0 - 15.0 G/DL) 5.9 L 8.4 L VBG pH (7.33 - 7.45) 7.329 L VBG pCO2 (43 - 47 mmHg) 39.5 L VBG pO2 (10 - 50 mmHG) 33.3 VBG HCO3 (22 - 27 MMOL/L) 20.8 L POC VBG Total CO2 22.0 VBG O2 Saturation (60 - 80 %) 60.0 VBG Base Excess (-4.0 - 4.0 MMOL/L) -5.2 L VBG Temperature (F) 98.6 Sodium (134 - 147 MEQ/L) 143 Potassium (3.4 - 5.0 MEQ/L) 4.1 Chloride (100 - 108 MEQ/L) 107 Ionized Calcium (1.12 - 1.32 MMOL/L) 1.36 H Lactic Acid (0.9 - 1.7 mmol/l) 0.8 L Temperature (F) 98.7 O2 Delivery Device BiPAP BiPAP Vent Rate (/MIN) 25 FiO2 (%) 60 60 Laboratory Tests 12/20 12/20 12/20 12/20 12/20 1155 1203 1352 1512 1617 Chemistry Sodium (134 - 147 mEq/L) 144 Potassium (3.4 - 5.0 mEq/L) 4.6 Chloride (100 - 108 mEq/L) 109 H Carbon Dioxide (21 - 33 mEq/l) 27 Anion Gap (0 - 20) 13 BUN (7 - 18 mg/dL) 26 H Creatinine (0.6 - 1.3 mg/dL) 1.7 H POC Creatinine (0.6 - 1.0 mg/dL) 2.0 H 1.9 H Glomerular Filtr Rate (70 - 80) 29.1 L Glucose (70 - 110 mg/dL) 182 H POC Glucose (70 - 110 MG/DL) 167 H 139 H POC Glucose (mg/dL) (70 - 110 MG/DL) 175 H 144 H Calcium (8.0 - 10.5 mg/dL) 9.2 12/20 12/20 12/20 12/20 12/20 1704 1909 2119 2120 2207 Chemistry Sodium (134 - 147 mEq/L) 145 Potassium (3.4 - 5.0 mEq/L) 4.4 Chloride (100 - 108 mEq/L) 108 Carbon Dioxide (21 - 33 mEq/l) 27 Anion Gap (0 - 20) 14 BUN (7 - 18 mg/dL) 29 H Creatinine (0.6 - 1.3 mg/dL) 1.8 H POC Creatinine (0.6 - 1.0 mg/dL) 1.9 H 2.0 H Glomerular Filtr Rate (70 - 80) 27.2 L Glucose (70 - 110 mg/dL) 130 H POC Glucose (70 - 110 MG/DL) 136 H 126 H POC Glucose (mg/dL) (70 - 110 MG/DL) 136 H 128 H Calcium (8.0 - 10.5 mg/dL) 9.8 12/21 12/21 12/21 12/21 12/21 0102 0210 0214 0409 0817 Chemistry Sodium (134 - 147 mEq/L) 145 Potassium (3.4 - 5.0 mEq/L) 4.3 Chloride (100 - 108 mEq/L) 107 Carbon Dioxide (21 - 33 mEq/l) 26 Anion Gap (0 - 20) 16 BUN (7 - 18 mg/dL) 30 H Creatinine (0.6 - 1.3 mg/dL) 1.6 H POC Creatinine (0.6 - 1.0 mg/dL) 1.4 H 1.8 H Glomerular Filtr Rate (70 - 80) 31.2 L Glucose (70 - 110 mg/dL) 117 H POC Glucose (70 - 110 MG/DL) 113 H 114 H POC Glucose (mg/dL) (70 - 110 MG/DL) 113 H Calcium (8.0 - 10.5 mg/dL) 10.2 Magnesium (1.80 - 2.40 mg/dL) 2.41 H Total Bilirubin (0.0 - 1.0 mg/dL) 0.50 Direct Bilirubin (0.0 - 0.30 MG/DL) 0.30 Indirect Bilirubin (MG/DL) 0.20 AST (15 - 37 IUnit/L) 32 ALT (30 - 65 IUnit/L) 12 L Total Alk Phosphatase (20 - 125 IUnit/L) 50 Total Protein (6.4 - 8.2 g/dL) 7.1 Albumin (3.4 - 5.0 g/dL) 4.60 12/21 924 Chemistry Ionized Calcium Gigi (1.09 - 1.30 MMOL/L) 1.17 Laboratory Tests 12/20 12/21 1715 0214 Hematology WBC (4.5 - 11.0 x10 3/uL) 8.0 9.2 RBC (3.54 - 5.02 x10 6/uL) 2.14 L 2.23 L Hgb (11.0 - 15.0 g/dL) 7.5 L 8.2 L Hct (33.0 - 45.0 %) 23.7 L 24.8 L MCV (81.0 - 99.0 fL) 110.7 H 111.2 H MCH (27.0 - 33.0 pg) 35.0 H 36.8 H MCHC (33.0 - 37.0 g/dL) 31.6 L 33.1 RDW (11.5 - 14.5 %) 15.9 H 16.1 H Plt Count (150 - 400 x10 3/uL) 64 L 71 L MPV (7.0 - 9.0 fL) 11.3 H 12.2 H Neut % (Auto) (56.0 - 77.0 %) 87.2 H 88.2 H Lymph % (Auto) (14.0 - 32.0 %) 2.4 L 2.9 L Barron % (Auto) (4.8 - 9.0 %) 9.7 H 7.9 Eos % (Auto) (0.3 - 3.7 %) 0.1 L 0.1 L Baso % (Auto) (0.0 - 2.0 %) 0.0 0.1 Neut # (Auto) (2.0 - 7.6 x10 3/uL) 6.93 8.12 H Lymph # (Auto) (1.0 - 3.8 x10 3/uL) 0.19 L 0.27 L Barron # (Auto) (0.1 - 0.8 x10 3/uL) 0.77 0.73 Eos # (Auto) (0.0 - 0.2 x10 3/uL) 0.01 0.01 Baso # (Auto) (0.0 - 0.2 x10 3/uL) 0.00 0.01 Abs Immat Gran (auto) (0.00 - 0.03 x10 3/uL) 0. 05 H 0.07 H Add Manual Diff NO NO Immature Gran % (0.0 - 2.0 %) 0.6 0.8 Nucleated RBC % (0 - 0 %) 0.3 H 0.0 Nucleated RBCs # (Man) (0.0 - 0.1 x10 3/uL) 0.0 2 0.00 Immature Plt Fraction (0.9 - 11.2 %) 8.7 8.9 Laboratory Tests 12/20 1155 Urines Urine Color (YEL/STRAW) YELLOW Urine Appearance (CLEAR) CLOUDY H Urine pH (5.0 - 7.0) 5.0 Ur Specific [place] (1.005 - 1.030) 1.030 Urine Protein (NEGATIVE) 2+ H Urine Glucose (UA) (NEGATIVE) NEGATIVE Urine Ketones (NEGATIVE) 1+ H Urine Blood (NEGATIVE) 4+ H Urine Nitrite (NEGATIVE) NEGATIVE Urine Bilirubin (NEGATIVE) NEGATIVE Urine Urobilinogen (0.2 - 1.0 mg/dL) 0.2 Ur Leukocyte Esterase (NEGATIVE) 3+ H Ur Random Creatinine (mg/dL) 116.2 Ur Random Sodium (MEQ/L) < 10 Laboratory Tests 12/21 0214 Chemistry Magnesium (1.80 - 2.40 mg/dL) 2.41 H Radiology data: Recent Impressions: RADIOLOGY - XR CHEST 1 V 12/21 0647 Report Impression - Status: SIGNED Entered: 12/21/2021 0700 IMPRESSION: Stable examination. Impression By: [email or web address] - Nancy Bender Results: labs reviewed, vital signs reviewed, vi kirk signs stable, rhythm personally rev'd, x-ray personally reviewed, cur rent med profile rev'd Telemetry Interpretation: 100% VPaced. Treatment Prophylaxis Treatment Prophylaxis Drain(s)/tube(s): Drain(s)/tube(s): chest (x3) Pressors and Inotropes: vasopressin (0.02units/m in) Diagnosis, Assessment Plan Consultants: cardiology, cardiovascular surgery Plan discussed with: patient, nurse Free Text DxA P Notes Free Text DxA P Notes: Ms Giles is a 76 y/o Femal w / PMHx: CAD, HLD, T2DM, RONA (CPAP at home), smoker, Crohn's disease, AF s/p ablation (on Xar elto), s/p PPM and lymphedema; patient is from [place]. Dr. Fortune is consulted f or CAD. Patient experienced intermittent nonradiated chest tightness . She reports sob x 1 year, was placed on diuretics; however her sob is not res olved. LHC showed 70% stenosis of left proximal LAD, diffuse LAD, distal LAD 80 % stenosis, constrictive pericarditis. CTS was consulted. - CAD s/p CABG, MVR, and ILAA. per CTS and criti reyna care On Plavix, aspirin, beta-delma, statin - Chr AF s/p PPM/ablation. Rate controlled, pace d rhythm. had ILAA during bypass - HTN. BP improving. Titrate vasopressin as needed. - HLD. On statins. - Crohn's disease. Per IM. Doing better. Electronically Signed by Jayna Gonzales NP on at 1133 Electronically Signed by Sandy Hawk MD on at 1328 RPT #:[id number] END OF REPORT 2021-12-21 04:04:00-00:00 [id number] [place] [id number] PATIENT NAME: SAÚL GILES ADMIT DATE: 12/17/21 ACCOUNT NO: [id number] ROOM NO: [facility] AGE: 76 REPORT TYPE: eELECTROCARDIOGRAM REPORT SEX: F ADMITTING PHYSICIAN:Jeffry More MD ATTENDING PHYSICIAN:Jeffry More MD Order: [id number] Test Reason : POD 2 Test Date/Time Stamp: WedDec 21 2021 04:04:45 Blood Pressure : / mmHG Vent. Rate : 070 BPM Atrial Rate : 077 BPM P-R Int : 000 ms QRS Dur : 162 ms QT Int : 446 ms P-R-T Axes : 000 135 018 degree s QTc Int : 481 ms Suspect unspecified pacemaker failure Ventricular-paced rhythm Abnormal ECG When compared with ECG of 20-DEC-2021 05:04, Significant changes have occurred Confirmed by MD HAWK GERARD ([id number]) on 022 9:38:06 PM Referred By: Colt Vail Confirmed by:SANDY PARRY MD Electronically Signed by Sandy Hawk MD on 1 at 3576 PATIENT NAME: SAÚL GILES 332 2021-12-20 15:04:00-00:00 [facility] Nephrology Consultation Note REPORT#:[id number] REPORT STATUS: Signed DATE:12/20/21 TIME: 1504 PATIENT: SAÚL GILES UNIT #: [id number] ROOM/BED: [address] : 43 AGE: 76 SEX: F ATTEND: Leah More MD ADM AUTHOR: Suki Fuchs MD * ALL edits or amendments must be made on the el [facility]/computer document * History of Present Illness Requesting clinician: Dr Gamble Reason for consult: MARCELLO/oliguria Chief complaint: chest pain HPI: This is a 76-year-old female who has past medica l history of hypertension, diabetes, coronary artery disease, atrial fibril lation who presented with worsening shortness of breath and on further wor k-up was 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 She was with normal kidney function prior to surgery and afte r her surgery she began to develop oliguria. Her procedure was done without any complications but after her surgery she did require pressor support for hypotension and she was intubated for respiratory acidosis and hypoxia a nd she was treated with vancomycin for infection treatment. When she was seen this morning she continued to have hypotension and her heart rate was paced by her permanent pacemaker and her urine outp ut was 20 to 30/h. Her family at bedside denied any history of kidney disease, kidney stone, chronic NSAID use or any urinary complaints. They also endorse that her b lood pressure and diabetes were mostly controlled. History - Adult longitudinal Past medical history: Reports: Atrial fibrillation, Diabetes mellitus, Hypertension, Dyslipidemia. Denies: Kidney disease/stones. Additional medical history: Clot degeneration Obstructive sleep apnea Chron's disease Past surgical history: Reports: Pacemaker (SJM). Alcohol use: Denies EtOH use Drug use: Denies recreational drugs Smoking status for patients 13 years old or olde r: Never Smoker Allergies: Coded Allergies: ciprofloxacin (From CIPRO) (Severe, JOINT PAIN 0 12/12/21) morphine (Severe, RASH, SWELLING 12/12/21) Review of Systems Unable to obtain due to: patient intubated Objective General VS/I O: Vital Signs: Date Time Temp Pulse Resp B/P B/P Pulse O2 O2 F low FiO2 Mean Ox Delivery Rate 12/20 1921 75 99 60 10/ 192 99 BiPAP 60 / 1835 37.2 69 25 114/42 58 100 10/08 1830 37.2 74 25 116/43 60 100 10/08 1815 37.2 75 26 117/42 59 97 10/08 1800 37.1 72 25 106/40 55 97 10/08 1745 37.1 73 25 106/39 54 99 10/08 1730 37.1 75 25 113/37 54 99 10/08 1715 37.1 76 26 111/37 54 100 10/08 1713 76 100 60 10/08 1700 37.0 72 25 108/42 58 99 10/08 1645 37.0 73 29 106/42 57 99 10/08 1630 37.0 73 26 104/42 57 99 10/08 1615 37.0 69 25 101/41 55 98 10/08 1600 37.0 69 26 99/40 52 100 10/08 1545 37.0 69 25 96/35 48 99 10/08 1530 36.9 69 26 97/34 48 100 10/08 1515 36.9 74 27 95/36 50 100 10/08 1503 69 100 60 10/08 1500 36.9 75 26 106/38 54 100 10/08 1445 36.8 73 26 98/35 50 100 10/08 1430 36.8 74 25 107/37 53 100 10/08 1415 36.7 72 26 112/43 58 100 10/08 1400 36.7 74 25 109/42 57 100 10/08 1345 36.7 73 29 105/42 58 100 10/08 1330 36.6 73 25 134/47 68 100 10/08 1315 36.6 72 25 124/47 67 100 10/08 1300 36.5 72 25 129/46 66 100 10/08 1245 36.5 75 25 127/45 65 100 10/08 1239 69 100 100 10/08 1230 36.4 72 25 128/44 63 100 10/08 1215 36.4 72 25 122/41 60 100 10/08 1200 36.3 73 26 116/37 55 100 10/08 1145 36.3 72 25 114/37 54 100 10/08 1130 36.3 72 25 102/33 48 100 10/08 1115 36.3 69 25 92/26 40 100 10/08 1100 36.3 72 25 99/28 43 99 10/08 1045 74 25 92/30 45 98 10/08 1030 74 25 103/30 45 98 10/08 1015 75 25 103/31 46 97 10/08 1000 36.3 75 25 99/29 44 98 10/08 0945 93/29 42 10/08 0945 73 100 100 10/08 0945 36.3 72 25 94/43 62 96 10/08 0930 98/35 48 10/08 0930 36.3 72 27 88/41 59 95 10/08 0915 90/33 44 10/08 0915 36.4 73 26 80/37 54 88 10/08 0914 93/33 45 10/08 0914 36.4 73 26 80/37 54 88 10/08 0908 101/41 52 10/08 0908 36.4 73 27 93/45 65 88 10/08 0900 89/32 45 10/08 0900 36.4 75 31 95/43 62 89 10/08 0845 92/32 44 10/08 0845 36.4 73 26 88/40 58 91 10/08 0830 104/35 50 10/08 0830 36.4 73 28 94/44 63 96 10/08 0815 104/37 52 10/08 0815 36.4 75 27 98/47 68 96 10/08 0800 BiPAP 100 10/08 0800 101/36 50 10/08 0800 36.4 73 30 96/45 65 96 10/08 0745 101/35 50 10/08 0745 36.3 73 27 94/45 65 96 10/08 0734 104/37 51 10/08 0734 36.3 73 25 98/46 67 95 10/08 0733 104/36 52 10/08 0733 36.3 73 27 94/46 67 95 10/08 0730 100/35 50 10/08 0730 36.3 72 28 93/44 63 96 10/08 0724 73 95 65 10/08 0724 95 BiPAP 65 10/08 0715 104/36 51 10/08 0715 36.3 73 28 93/44 64 95 10/08 0700 104/36 51 10/08 0700 36.3 74 28 94/44 64 97 10/08 0642 36.3 73 27 100/35 49 96 10/08 0630 96/33 47 10/08 0630 36.3 73 27 91/42 61 96 10/08 0615 101/35 50 10/08 0615 36.3 73 25 96/45 65 94 10/08 0600 104/36 51 10/08 0600 36.3 73 27 97/46 66 93 10/08 0545 104/38 55 10/08 0545 36.3 75 26 98/53 73 94 10/08 0533 104/35 52 10/08 0533 36.4 76 26 92/43 62 94 10/08 0530 103/37 52 10/08 0530 36.4 76 26 98/42 60 94 10/08 0515 36.4 73 26 108/41 59 93 10/08 0500 117/42 58 10/08 0500 36.4 73 28 112/52 75 93 10/08 0445 115/42 59 10/08 0445 36.5 72 26 108/52 75 94 10/08 0430 105/40 55 10/08 0430 36.5 72 26 105/48 69 95 10/08 0416 72 99 65 10/08 0415 101/40 55 10/08 0415 36.5 73 26 104/50 72 89 10/08 0400 99/33 49 10/08 0400 36.5 72 27 102/47 68 92 10/08 0345 98/34 49 10/08 0345 36.5 73 26 102/48 69 90 10/08 0330 91/32 47 10/08 0330 36.5 72 27 97/46 66 92 10/08 0315 36.5 72 23 95/44 64 93 10/08 0300 36.6 73 26 92/44 64 91 10/08 0245 90/33 47 10/08 0245 36.6 73 27 97/46 67 93 10/08 0230 95/34 49 10/08 0230 36.6 72 26 106/49 71 94 10/08 0215 102/36 52 10/08 0215 36.6 72 27 105/50 72 94 10/08 0200 102/36 53 10/08 0200 36.7 73 27 105/51 74 95 10/08 0145 103/37 55 10/08 0145 36.8 73 27 108/51 74 94 10/08 0130 104/37 54 10/08 0130 36.8 73 25 107/51 74 95 10/08 0115 113/45 64 10/08 0115 36.8 73 26 110/55 79 96 10/08 0100 92/36 51 10/08 0100 36.8 72 26 98/47 68 97 10/08 0047 72 99 55 10/08 0045 36.8 72 26 97/46 67 98 10/08 0030 95/35 50 10/08 0030 36.9 69 26 100/48 69 98 10/08 0015 98/36 51 10/08 0015 36.9 69 26 102/48 69 97 10/08 0008 90/32 47 10/08 0008 36.9 69 31 97/46 66 97 10/08 0000 92/32 46 10/08 0000 36.9 69 28 104/47 68 98 10/07 2345 117/38 56 10/07 2345 37.0 69 26 124/53 76 96 10/07 2331 105/36 52 10/07 2331 37.0 69 27 134/55 70 93 10/07 2330 37.0 73 27 93/35 48 87 10/07 2315 109/38 57 10/07 2315 37.0 76 27 110/51 74 95 10/07 2300 95/34 49 10/07 2300 37.1 72 34 102/47 68 96 10/07 2245 91/33 48 10/07 2245 37.1 72 27 98/46 67 96 10/07 2235 92 99 60 10/07 2230 95/34 48 10/07 2230 37.1 72 36 104/47 68 96 10/07 2215 102/38 54 10/07 2215 37.2 72 27 113/51 74 96 10/07 2200 117/44 62 10/07 2200 37.1 72 26 115/53 76 95 10/07 2145 117/46 64 10/07 2145 37.1 71 26 122/56 81 93 10/07 2142 124/49 69 10/07 2142 37.1 75 29 120/56 80 92 10/07 2130 99/35 50 10/07 2130 37.2 69 28 101/47 68 95 10/07 2115 93/36 51 10/07 2115 37.2 70 21 100/45 65 96 10/07 2100 94/39 55 10/07 2100 37.2 69 22 104/49 71 97 12/19 2044 92/39 54 12/19 2044 37.2 73 29 103/44 63 90 12/19 2029 101/41 58 12/19 2029 37.2 69 20 109/46 66 95 12/19 2014 94/36 52 12/19 2014 37.2 69 18 101/48 69 94 12/20 1999 BiPAP 60 12/20 1999 99/37 55 12/20 1999 37.1 72 97 BiPAP 60 12/20 1999 37.2 69 21 111/44 63 94 12/19 1944 98/34 51 12/19 1944 37.1 69 24 103/46 67 90 12/20 1943 90 High flow 10 nasal cannula 24 hour I O ending at 0700: 12/20 1900 Intake Total 1563.00 1802.00 Output Total 635 540 Balance 928.00 1262.00 Intake, IV 1443.00 1802.00 Intake, Oral 120 Output, Chest 290 225 Tube Drainage Output, Urine 345 315 PATIENT WEIGHT: Weight (lb): 264 Weight (oz): 12.4 Weight (kg): 119.748 Physical Exam General appearance: sedated Head/eyes: atraumatic, normocephalic ENT: ET tube Neck: no JVD, no lymphadenopathy Cardiovascular: normal heart sounds, regular rat e and rhythm Respiratory: aerating well, clear to auscultatio n Abdomen: soft, no pulsatile mass Genitourinary: urinary catheter Treatment Prophylaxis Treatment Prophylaxis Drain(s)/tube(s): Drain(s)/tube(s): chest (x3) Diagnosis, Assessment Plan Consultants: cardiology, cardiovascular surgery Free Text DxA P Notes Free text DxA P notes: This is a 76-year-old female known to have hyper tension, diabetes, atrial fibrillation, s/p permanent pacemaker and histor y of ablation presenting with shortness of breath and found to have multivesse l coronary artery disease therefore she had CABG on December 19 after which she has developed oliguria. Nephrology is following for: 1. Acute kidney injury: Most likely it i s prerenal (cardiorenal), she has been hypotensive postoperatively with require ment for pressor support and inotropic support. Plan is to increase inotropic support or pressor support to bring mean arterial pressure above 65 and give albumin with Lasix to see if it helps him diurese. If he does not respond to higher dose L asix with albumin then I will consider starting him on CRRT to prevent hyper v olemia. 2. Hypervolemia: Plan is to give Lasix a nd if he does not respond to start him on CRRT for extra fluid removal. 3. His electrolytes were all reviewed to be in normal range plan was to monitor and replace as needed. 4. He was receiving vancomycin so plan w as to monitor vancomycin trough levels to prevent ATN. Electronically Signed by Suki Fuchs MD on at 1938 RPT #:[id number] END OF REPORT 2021-12-20 11:57:00-00:[address] [facility] ([facility] Hospitalist Progress Note REPORT#:[id number] REPORT STATUS: Signed DATE:12/20/21 TIME: 1157 PATIENT: SAÚL GILES UNIT #: [id number] ROOM/BED: [place] [id number] : 43 AGE: 76 SEX: F ATTEND: Leah More MD ADM AUTHOR: Meryl Rosa MD * ALL edits or amendments must be made on the [employer]/computer document * Subjective Chief complaint: she is on the bipap .she is low urine output and edema . chest tube remain in place acute respiratory failure --post CABG HPI: 76 years old female with PMH of macular degeneration, obesity, obstructive sleep apnea (CPAP at home), former smoker, hypertensio n, hyperlipidemia, diabetes, Crohn's disease, chronic atr ial fibrillation status post 3 ablations in the past (on Xarelto), pacemaker plac ement is admitted to the hospital post cardiac cath . she need CABG . she had sob for years . sob go t worse . she was admitted to the hospital in [place] . she had cath 3 we eks ago . she was reffered to here for stents placement . she had cath yesterd ay . it show multiple vessels CAD . she is recommend CABG . she still feel sob . no cp no nausea no vomiting no fever no abdominal pain no dizziness . Review of Systems Unable to obtain due to: lethargic Objective General VS/I O: Vital Signs: Date Time Temp Pulse Resp B/P B/P Pulse O2 O2 F low FiO2 Mean Ox Delivery Rate / 0724 73 95 65 10/08 0724 95 BiPAP 65 10/08 0642 36.3 73 27 100/35 49 96 10/08 0630 96/33 47 10/08 0630 36.3 73 27 91/42 61 96 10/08 0615 101/35 50 10/08 0615 36.3 73 25 96/45 65 94 10/08 0600 104/36 51 10/08 0600 36.3 73 27 97/46 66 93 10/08 0545 104/38 55 10/08 0545 36.3 75 26 98/53 73 94 10/08 0533 104/35 52 10/08 0533 36.4 76 26 92/43 62 94 10/08 0530 103/37 52 10/08 0530 36.4 76 26 98/42 60 94 10/08 0515 36.4 73 26 108/41 59 93 10/08 0500 117/42 58 10/08 0500 36.4 73 28 112/52 75 93 10/08 0445 115/42 59 10/08 0445 36.5 72 26 108/52 75 94 10/08 0430 105/40 55 10/08 0430 36.5 72 26 105/48 69 95 10/08 0416 72 99 65 10/08 0415 101/40 55 10/08 0415 36.5 73 26 104/50 72 89 10/08 0400 99/33 49 10/08 0400 36.5 72 27 102/47 68 92 10/08 0345 98/34 49 10/08 0345 36.5 73 26 102/48 69 90 10/08 0330 91/32 47 10/08 0330 36.5 72 27 97/46 66 92 10/08 0315 36.5 72 23 95/44 64 93 10/08 0300 36.6 73 26 92/44 64 91 10/08 0245 90/33 47 10/08 0245 36.6 73 27 97/46 67 93 10/08 0230 95/34 49 10/08 0230 36.6 72 26 106/49 71 94 10/08 0215 102/36 52 10/08 0215 36.6 72 27 105/50 72 94 10/08 0200 102/36 53 10/08 0200 36.7 73 27 105/51 74 95 10/08 0145 103/37 55 10/08 0145 36.8 73 27 108/51 74 94 10/08 0130 104/37 54 10/08 0130 36.8 73 25 107/51 74 95 10/08 0115 113/45 64 10/08 0115 36.8 73 26 110/55 79 96 10/08 0100 92/36 51 10/08 0100 36.8 72 26 98/47 68 97 10/08 0047 72 99 55 10/08 0045 36.8 72 26 97/46 67 98 10/08 0030 95/35 50 10/08 0030 36.9 69 26 100/48 69 98 10/08 0015 98/36 51 10/08 0015 36.9 69 26 102/48 69 97 10/08 0008 90/32 47 10/08 0008 36.9 69 31 97/46 66 97 10/08 0000 92/32 46 10/08 0000 36.9 69 28 104/47 68 98 10/07 2345 117/38 56 10/07 2345 37.0 69 26 124/53 76 96 10/07 2331 105/36 52 10/07 2331 37.0 69 27 134/55 70 93 10/07 2330 37.0 73 27 93/35 48 87 10/07 2315 109/38 57 10/07 2315 37.0 76 27 110/51 74 95 10/07 2300 95/34 49 10/07 2300 37.1 72 34 102/47 68 96 10/07 2245 91/33 48 10/07 2245 37.1 72 27 98/46 67 96 10/07 2235 92 99 60 10/07 2230 95/34 48 10/07 2230 37.1 72 36 104/47 68 96 10/07 2215 102/38 54 10/07 2215 37.2 72 27 113/51 74 96 10/07 2200 117/44 62 10/07 2200 37.1 72 26 115/53 76 95 10/07 2145 117/46 64 10/07 2145 37.1 71 26 122/56 81 93 10/07 2142 124/49 69 10/07 2142 37.1 75 29 120/56 80 92 10/07 2130 99/35 50 10/07 2130 37.2 69 28 101/47 68 95 10/2114 93/36 51 102114 37.2 70 21 100/45 65 96 10/2099 94/39 55 10/2099 37.2 69 22 104/49 71 97 10/2044 92/39 54 102044 37.2 73 29 103/44 63 90 102029 101/41 58 102029 37.2 69 20 109/46 66 95 12/19 2014 94/36 52 10/2014 37.2 69 18 101/48 69 94 101999 BiPAP 60 12/20 1999 99/37 55 101999 37.1 72 97 BiPAP 60 12/20 1999 37.2 69 21 111/44 63 94 12/19 1945 98/34 51 10/ 1945 37.1 69 24 103/46 67 90 12/19 1944 90 High flow 10 nasal cannula 12/19 1930 98/35 55 10/ 1930 37.1 73 26 109/47 68 96 10 1915 100/34 53 10/ 1915 37.1 70 19 107/51 73 96 10/ 1900 104/35 55 10/07 1900 37.1 71 24 111/49 70 98 10/ 1845 37.0 69 20 104/51 74 99 10/ 1833 37.0 69 24 118/44 65 99 10/07 1830 37.0 69 23 124/49 70 99 10/ 1818 37.0 69 20 114/43 63 99 10/ 1815 37.0 69 21 116/53 77 94 10/07 1803 36.9 69 20 112/43 62 94 10/07 1748 36.9 69 23 84/34 48 95 10/07 1745 37.0 69 22 99/44 64 95 10/07 1733 36.9 69 18 107/41 60 94 10/07 1730 36.9 69 18 114/46 67 94 10/07 1718 36.9 69 17 78/49 62 94 10/07 1716 36.9 69 23 110/47 68 94 10/07 1700 36.9 69 21 96/46 66 81 10/07 1700 69 94 50 10/07 1645 36.9 69 22 95/42 60 99 10/07 1640 36.9 69 19 92/45 64 97 10/ 1635 36.9 71 18 94/45 65 97 10/ 1633 36.9 70 18 73/38 52 97 10/ 1625 71 20 96 10/ 1625 71 96 50 10/ 1618 36.9 74 12 85/49 62 97 10/ 1603 36.8 75 24 108/48 67 100 10/ 1600 36.8 75 24 108/51 74 100 10/ 1548 36.7 72 24 92/47 63 100 10/ 1533 36.7 72 24 101/51 69 100 10/ 1518 36.6 72 24 100/47 64 100 10/ 1503 36.6 75 24 96/46 62 92 10/ 1500 36.6 75 24 103/51 71 96 10/ 1448 36.6 73 24 102/53 72 97 10/ 1433 36.5 72 24 94/46 61 99 10/ 1418 36.5 77 24 100/54 70 96 10/ 1403 36.4 75 24 111/56 73 100 10/ 1400 36.4 69 25 108/55 76 100 10/ 1348 36.4 69 24 105/49 67 99 12/19 1300 50 12/19 1300 Ventilator 50 12/19 1259 80 93 60 12/19 1255 60 12/19 1249 93 Ventilator 50 12/19 1249 80 93 50 24 hour I O ending at 0700: 10 0700 12/19 1900 Intake Total 1563.00 1802.00 Output Total 635 540 Balance 928.00 1262.00 Intake, IV 1443.00 1802.00 Intake, Oral 120 Output, Chest 290 225 Tube Drainage Output, Urine 345 315 PATIENT WEIGHT: Weight (lb): 264 Weight (oz): 12.4 Weight (kg): 120.100 Medications: Active Meds + DC'd Last 24 Hrs Cyanocobalamin (Vitamin B-12 500 mcg tab) 500 MC G DAILY PO Ferrous Sulfate (FERROUS SULFATE) 325 MG DAILY P O Bisacodyl (DULCOLAX) 10 MG ONCE PRN RECTAL Magnesium Hydroxide (MILK OF MAGNESIA) 30 ML ONC E PRN PO Furosemide (LASIX 40 mg/4 mL INJECTION) 0 .STK-M ED ONE IV (DC) Furosemide (LASIX 40 mg/4 mL INJECTION) 40 MG O NCE ONE IV (DC) Clopidogrel Bisulfate (Plavix) 75 MG DAILY PO Polyethylene Glycol (MIRALAX) 17 GM DAILY PO Dopamine HCl/Dextrose (DOPamine 400MG/D5W 250ML) 250 ML ASDIR IV Pantoprazole (PROTONIX) 40 MG DAILY@0600 PO Furosemide (LASIX 20MG INJ) 10 MG ONCE ONE IV (D C) Vancomycin HCl (VANCOMYCIN HCL) 1,000 MG Q12H I V (DC) Sodium Chloride (SODIUM CHLORIDE 0.9%) 250 ML Docusate Sodium (COLACE) 100 MG BID PO Metoprolol Tartrate (LOPRESSOR) 12.5 MG Q12HR P O Sennosides (Senna Lax 8.6 MG TABLET) 17.2 MG BED TIME PO Milrinone Lactate/Dextrose (MILRINONE 20MG/D5W 1 00ML) 100 ML ASDIR IV ( CKD) Vasopressin (VASOSTRICT 20 Unit/NS 100ML) 100 ML ASDIR IV (CKD) Aspirin (ASPIRIN) 81 MG DAILY PO Gabapentin (NEURONTIN) 200 MG BID 9A 5P PO Fentanyl Citrate (SUBLIMAZE) 25 MCG ONCE ONE IV (DC) Amiodarone HCl (CORDARONE) 200 MG TID PO Furosemide (LASIX 20MG INJ) 10 MG ONCE ONE IV (D C) Tramadol HCl (ULTRAM) 25 MG Q4H PRN PRN PO Tramadol HCl (ULTRAM) 50 MG Q4H PRN PRN PO Mupirocin (BACTROBAN 2% 22 GM OINTMENT) 1 APPLIC BID NASAL Acetaminophen (TYLENOL) 650 MG Q4H PRN PRN PO Acetaminophen (TYLENOL) 650 MG Q4H PRN PRN RECTA L Albumin Human (ALBUMINAR 25%) 25 GM ASDIR PRN IV (DC) Calcium Chloride (CALCIUM CHLORIDE) 1 GM ASDIR P RN IV Chlorhexidine Gluconate (PERIDEX) 15 ML Q2H MM ( CKD) Dextrose/Water (DEXTROSE 10% IN WATER) 125 ML DIR PRN IV (CKD) Dextrose/Water (DEXTROSE 10% IN WATER) 250 ML DIR PRN IV (CKD) Epinephrine (ADRENALIN CHLORIDE) 5 MG ASDIR IV Dextrose/Water (DEXTROSE 5% WATER) 245 ML Glucagon (GLUCAGON) 1 MG ASDIR PRN IM Insulin Human Regular (HumuLIN R) 100 UNIT ASDIR IV (CKD) Sodium Chloride (SODIUM CHLORIDE 0.9%) 99 ML Magnesium Sulfate (MAGNESIUM SULFATE 4GM/SWFI 10 0ML) 100 ML ASDIR PRN IV Magnesium Sulfate (MAGNESIUM SULFATE 2GM/SWFI 50 ML) 50 ML ASDIR PRN IV Magnesium Sulfate/Dextrose (MAGNESIUM SULFATE 1G M/D5W 100ML) 100 ML ASDIR PRN IV Nitroglycerin/Dextrose (NITROGLYCERIN 50,000MCG/ D5W 250ML) 250 ML ASDIR IV Norepinephrine Bitartrate (NOREPINEPHRINE 8 MG/N S 250 ML) 250 ML TITRATE IV Oxycodone HCl (ROXICODONE) 5 MG Q4H PRN PRN PO ( DC) Oxycodone HCl (ROXICODONE) 10 MG Q4H PRN PRN PO (DC) Potassium Chloride (KCL 20MEQ/SWFI 100ML) 100 ML ASDIR PRN IV Sodium Bicarbonate (SODIUM BICARBONATE) 50 MEQ A SDIR PRN IV Sodium Chloride (SODIUM CHLORIDE 0.9%) 1,000 ML .Q20H IV Sodium Chloride (SODIUM CHLORIDE 0.9%) 250 ML Q2 4H IV Vancomycin HCl (VANCOMYCIN HCL) 1,750 MG PREOP O NCALL IV (DC) Sodium Chloride (SODIUM CHLORIDE 0.9%) 500 ML Verapamil HCl (ISOPTIN) 16.6 MG PREOP ONCALL IV (DC) Heparin Sodium (Porcine) (HEPARIN SODIUM) 1,660 UNIT Sodium Bicarbonate (SODIUM BICARBONATE) 0.7 ML Nitroglycerin/Dextrose (NITROGLYCERIN 50MG/D5W 250ML) 8.3 MG Lactated Ringer's (LACTATED RINGERS) 949.5 ML Atorvastatin Calcium (LIPITOR) 40 MG 2100 PO Ceftriaxone Sodium (ROCEPHIN 1000MG VIAL) 1,000 MG Q24H IV Sodium Chloride (SODIUM CHLORIDE) 10 ML Acetaminophen (TYLENOL EXTRA STRENGTH) 1,000 MG PREOP ONCALL PO (DC) Gabapentin (NEURONTIN) 200 MG PREOP ONCALL PO (D C) Ondansetron HCl (ZOFRAN) 4 MG Q6H PRN PRN IV Amlodipine Besylate (NORVASC) 5 MG DAILY PO Acetaminophen (TYLENOL EXTRA STRENGTH) 1,000 MG PREOP ONCALL PO (DC) Gabapentin (NEURONTIN) 200 MG PREOP ONCALL PO (D C) Pantoprazole (PROTONIX) 40 MG DAILY@0600 PO (DC) Vancomycin HCl (VANCOMYCIN HCL) 1,750 MG PREOP O NCALL IV (CKD) Sodium Chloride (NS 0.9%) 500 ML Clonidine HCl (CATAPRES) 0.3 MG BID PO (DC) Doxazosin Mesylate (CARDURA) 4 MG BEDTIME PO (DC ) Insulin Glargine (Lantus/Semglee) 50 UNIT BID [place] BQ (DC) Insulin Human Lispro (HUMALOG) 0 AC HS SUBQ (DC) Dextrose/Water (DEXTROSE 10% IN WATER) 125 ML DIR PRN IV (DC) Dextrose/Water (DEXTROSE 10% IN WATER) 250 ML DIR PRN IV (DC) Glucagon (GLUCAGON) 1 MG ASDIR PRN IM (DC) Physical Exam General appearance: alert, awake Head/Eyes: atraumatic, normal conjunctiva/sclera , normal eyelids/periorb., normocephalic Neck: full range of motion, non-tender, no JVD Cardiovascular: normal heart sounds, regular rat e rhythm Respiratory: dyspneic, hypercapnia, hypoxia, on oxygen, clear to auscultation Abdomen: non-tender, normal bowel sounds, soft, no distention Extremities: moves all, no calf tenderness, no e ana 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 Skin: dry, intact Results Findings/Data: Laboratory Tests 12/20 12/20 12/19 12/19 0940 5719 [id number] Blood Gas Puncture Site Art Line Art Line Art Line Art L ine O2 Saturation (90 - 100 %) 94.9 90.4 97.0 93.8 ABG pH (7.35 - 7.45) 7.239 *L 7.278 *L 7.301 L 7.284 *L ABG pCO2 (35.0 - 45 mmHg) 67.0 *H 66.1 *H 61.1 *H 68.4 *H ABG pO2 (80 - 100.0 mmHg) 90.6 70.0 L 103.3 H 8 2.3 ABG PO2/FiO2 Ratio (mm/Hg) 90.60 116.66 172.16 137.16 ABG HCO3 (22.0 - 26.0 MMOL/L) 28.6 *H 30.8 *H 3 0.1 *H 32.4 *H ABG Total CO2 30.7 32.8 32.0 34.4 ABG Base Excess (-4.0 - 4.0 MMOL/L) 1.2 4.1 H 3 .7 5.7 H ABG Hematocrit (33.0 - 45.0 %) 22 L 21 L 22 L 2 3 L ABG Hemoglobin (11.0 - 15.0 G/DL) 7.6 L 7.2 L 7 .5 L 7.9 L Martin Test N/A Sodium (134 - 147 MEQ/L) 141 142 143 143 Potassium (3.4 - 5.0 MEQ/L) 4.4 4.6 4.7 4.6 Chloride (100 - 108 MEQ/L) 110 H 108 108 108 Ionized Calcium (1.12 - 1.32 MMOL/L) 1.28 1.33 H 1.29 1.33 H Lactic Acid (0.9 - 1.7 mmol/l) 0.8 L 0.8 L 0.8 L 0.7 L Temperature (F) 98.9 98.8 99 Respiration Rate (/MIN) 26 O2 Delivery Device BiPAP BiPAP Vent Mode BiLevel Vent Rate (/MIN) 26 FiO2 (%) 100 60 60 60 Inspiratory Time 1 PEEP (cmH2O) 5 5 5 5 Pressure Support (cmH2O) 15 12/19 1856 1650 1446 Blood Gas Puncture Site Art Line Art Line Art Line Art Li ne O2 Saturation (90 - 100 %) 93.0 99.6 97.0 93.5 ABG pH (7.35 - 7.45) 7.283 *L 7.276 *L 7.333 L 7.482 H ABG pCO2 (35.0 - 45 mmHg) 68.1 *H 65.7 *H 56.4 *H 37.2 ABG pO2 (80 - 100.0 mmHg) 78.8 L 203.2 *H 99.2 62.0 L ABG PO2/FiO2 Ratio (mm/Hg) 131.33 254.00 198.4 0 155.00 ABG HCO3 (22.0 - 26.0 MMOL/L) 32.1 *H 30.6 *H 2 9.9 *H 27.9 H ABG Total CO2 34.2 32.6 31.6 29.1 ABG Base Excess (-4.0 - 4.0 MMOL/L) 5.5 H 3.8 4 .0 4.3 H ABG Hematocrit (33.0 - 45.0 %) 23 L 24 L 24 L 2 6 L ABG Hemoglobin (11.0 - 15.0 G/DL) 7.8 L 8.2 L 8 .3 L 8.9 L Martin Test N/A N/A Sodium (134 - 147 MEQ/L) 142 146 143 144 Potassium (3.4 - 5.0 MEQ/L) 4.5 4.4 4.4 4.3 Chloride (100 - 108 MEQ/L) 109 H 108 108 106 Ionized Calcium (1.12 - 1.32 MMOL/L) 1.31 1.29 1.23 1.27 Lactic Acid (0.9 - 1.7 mmol/l) 0.8 L 0.5 L 0.9 1.6 Temperature (F) 99 98.6 97.7 O2 Delivery Device BiPAP BiPAP Adult Vent Vent Mode CPAP/PS AC AC Vent Rate (/MIN) 24 FiO2 (%) 60 80 50 40 Tidal Volume (ml) 450 PEEP (cmH2O) 578 5 5 Pressure Support (cmH2O) 14 10 12/19 12/19 1307 1256 Blood Gas Puncture Site [place] Art Line O2 Saturation (90 - 100 %) 94.0 ABG pH (7.35 - 7.45) 7.383 ABG pCO2 (35.0 - 45 mmHg) 51.0 *H ABG pO2 (80 - 100.0 mmHg) 72.1 L ABG PO2/FiO2 Ratio (mm/Hg) 144.20 ABG HCO3 (22.0 - 26.0 MMOL/L) 30.4 *H ABG Total CO2 32.0 ABG Base Excess (-4.0 - 4.0 MMOL/L) 5.3 H ABG Hematocrit (33.0 - 45.0 %) 26 L 27 L ABG Hemoglobin (11.0 - 15.0 G/DL) 8.9 L 9.2 L Martin Test N/A VBG pH (7.33 - 7.45) 7.334 VBG pCO2 (43 - 47 mmHg) 57.2 *H VBG pO2 (10 - 50 mmHG) 35.1 VBG HCO3 (22 - 27 MMOL/L) 30.5 H POC VBG Total CO2 32.2 VBG O2 Saturation (60 - 80 %) 61.8 VBG Base Excess (-4.0 - 4.0 MMOL/L) 4.6 H Sodium (134 - 147 MEQ/L) 143 144 Potassium (3.4 - 5.0 MEQ/L) 3.7 3.8 Chloride (100 - 108 MEQ/L) 105 105 Ionized Calcium (1.12 - 1.32 MMOL/L) 1.30 1.29 Lactic Acid (0.9 - 1.7 mmol/l) 1.9 H 2.0 H Temperature (F) 98 O2 Delivery Device Adult Vent Vent Mode AC Vent Rate (/MIN) 18 FiO2 (%) 60 50 Tidal Volume (ml) 450 500 PEEP (cmH2O) 5 5 Laboratory Tests 12/20 12/20 12/20 12/20 12/19 0940 0815 0319 8622 0568 Chemistry Sodium (134 - 147 mEq/L) 144 Potassium (3.4 - 5.0 mEq/L) 4.8 Chloride (100 - 108 mEq/L) 108 Carbon Dioxide (21 - 33 mEq/l) 28 Anion Gap (0 - 20) 12 BUN (7 - 18 mg/dL) 21 H Creatinine (0.6 - 1.3 mg/dL) 1.4 H POC Creatinine (0.6 - 1.0 mg/dL) 1.8 H 1.4 H 1. 2 H Glomerular Filtr Rate (70 - 80) 36.4 L Glucose (70 - 110 mg/dL) 179 H POC Glucose (70 - 110 MG/DL) 191 H POC Glucose (mg/dL) (70 - 110 MG/DL) 170 H 172 H 178 H Calcium (8.0 - 10.5 mg/dL) 9.4 Magnesium (1.80 - 2.40 mg/dL) 2.32 Total Bilirubin (0.0 - 1.0 mg/dL) 0.60 Direct Bilirubin (0.0 - 0.30 MG/DL) 0.40 H Indirect Bilirubin (MG/DL) 0.20 AST (15 - 37 IUnit/L) 40 H ALT (30 - 65 IUnit/L) 8 L Total Alk Phosphatase (20 - 125 38 IUnit/L) Total Protein (6.4 - 8.2 g/dL) 6.1 L Albumin (3.4 - 5.0 g/dL) 4.30 12/19 12/19 12/19 12/19 12/19 2245 2105 2006 1856 1650 Chemistry Sodium (134 - 147 mEq/L) 146 Potassium (3.4 - 5.0 mEq/L) 4.8 Chloride (100 - 108 mEq/L) 108 Carbon Dioxide (21 - 33 mEq/l) 29 Anion Gap (0 - 20) 14 BUN (7 - 18 mg/dL) 21 H Creatinine (0.6 - 1.3 mg/dL) 1.1 POC Creatinine (0.6 - 1.0 mg/dL) 1.2 H 1.1 H 0. 9 0.9 Glomerular Filtr Rate (70 - 80) 48.0 L Glucose (70 - 110 mg/dL) 186 H POC Glucose (mg/dL) (70 - 110 MG/DL) 163 H 171 H 159 H 125 H Calcium (8.0 - 10.5 mg/dL) 9.1 Ionized Calcium Gigi (1.09 - 1.30 1.16 MMOL/L) Phosphorus (2.5 - 4.9 MG/DL) 3.9 Magnesium (1.80 - 2.40 mg/dL) 2.45 H 12/19 12/19 12/19 12/19 12/19 1450 1446 1307 1257 1257 Chemistry Sodium (134 - 147 mEq/L) 147 Potassium (3.4 - 5.0 mEq/L) 3.6 Chloride (100 - 108 mEq/L) 109 H Carbon Dioxide (21 - 33 mEq/l) 28 Anion Gap (0 - 20) 14 BUN (7 - 18 mg/dL) 18 Creatinine (0.6 - 1.3 mg/dL) 0.8 POC Creatinine (0.6 - 1.0 mg/dL) 0.9 0.8 Glomerular Filtr Rate (70 - 80) 69.4 L Glucose (70 - 110 mg/dL) 153 H POC Glucose (mg/dL) (70 - 110 MG/DL) 126 H 141 H Lactic Acid (0.4 - 1.9 mmol/l) 1.8 2.2 H Calcium (8.0 - 10.5 mg/dL) 8.7 Magnesium (1.80 - 2.40 mg/dL) 2.45 H Total Bilirubin (0.0 - 1.0 mg/dL) 1.00 Direct Bilirubin (0.0 - 0.30 MG/DL) 0.40 H Indirect Bilirubin (MG/DL) 0.60 AST (15 - 37 IUnit/L) 44 H ALT (30 - 65 IUnit/L) 11 L Total Alk Phosphatase (20 - 125 47 IUnit/L) Total Protein (6.4 - 8.2 g/dL) 5.5 L Albumin (3.4 - 5.0 g/dL) 3.20 L 12/19 1256 Chemistry POC Creatinine (0.6 - 1.0 mg/dL) 0.9 POC Glucose (mg/dL) (70 - 110 MG/DL) 144 H Laboratory Tests 12/205 1257 Coagulation INR (0.8 - 1.2) 1.3 H 1.5 H PTT ([facility]) (25.0 - 39.5 Seconds) 25.0 24.4 L PT Patient/Control Mix (9.3 - 12.9 SECONDS) 14. 9 H 16.7 H Fibrinogen (160 - 450 MG/DL) 278 Laboratory Tests 12/205 2245 1257 Hematology WBC (4.5 - 11.0 x10 3/uL) 7.1 6.7 7.8 RBC (3.54 - 5.02 x10 6/uL) 2.03 L 2.00 L 2.37 L Hgb (11.0 - 15.0 g/dL) 7.2 L 7.5 L 9.3 L Hct (33.0 - 45.0 %) 22.6 L 22.4 L 26.5 L MCV (81.0 - 99.0 fL) 111.3 H 112.0 H 111.8 H MCH (27.0 - 33.0 pg) 35.5 H 37.5 H 39.2 H MCHC (33.0 - 37.0 g/dL) 31.9 L 33.5 35.1 RDW (11.5 - 14.5 %) 16.0 H 16.1 H 15.8 H Plt Count (150 - 400 x10 3/uL) 65 L 62 L 76 L MPV (7.0 - 9.0 fL) 11.2 H 12.0 H 10.9 H Neut % (Auto) (56.0 - 77.0 %) 87.7 H 89.4 H 87. 6 H Lymph % (Auto) (14.0 - 32.0 %) 3.5 L 2.5 L 3.1 L Barron % (Auto) (4.8 - 9.0 %) 8.1 7.6 8.3 Eos % (Auto) (0.3 - 3.7 %) 0.0 L 0.0 L 0.1 L Baso % (Auto) (0.0 - 2.0 %) 0.1 0.1 0.1 Neut # (Auto) (2.0 - 7.6 x10 3/uL) 6.25 5.95 6. 83 Lymph # (Auto) (1.0 - 3.8 x10 3/uL) 0.25 L 0.17 L 0.24 L Barron # (Auto) (0.1 - 0.8 x10 3/uL) 0.58 0.51 0. 65 Eos # (Auto) (0.0 - 0.2 x10 3/uL) 0.00 0.00 0. 01 Baso # (Auto) (0.0 - 0.2 x10 3/uL) 0.01 0.01 0. 01 Abs Immat Gran (auto) (0.00 - 0.03 x10 3/uL) 0. 04 H 0.03 0.06 H Add Manual Diff NO NO NO Immature Gran % (0.0 - 2.0 %) 0.6 0.4 0.8 Nucleated RBC % (0 - 0 %) 0.0 0.0 0.0 Nucleated RBCs # (Man) (0.0 - 0.1 x10 3/uL) 0.0 0 0.00 0.00 Platelet Estimate (ADEQUATE THOUSAND) 76-95 Immature Plt Fraction (0.9 - 11.2 %) 8.3 6.5 Polychromasia 1+ Anisocytosis 1+ Macrocytosis 1+ Radiology data: Recent Impressions: RADIOLOGY - XR CHEST 1 V 12/19 1315 Report Impression - Status: SIGNED Entered: 12/19/2021 1516 IMPRESSION: 1. There are patchy opacities throughout the dahlia gs, which could represent atelectasis. 2. Increased interstitial markings, which could represent pulmonary edema. Impression By: [email or web address] Enrico Chong RADIOLOGY - XR CHEST 1 V 12/19 1336 Report Impression - Status: SIGNED Entered: 12/19/2021 1403 IMPRESSION: 1. No retained metallic structure resembling a s urgical needle in the chest or visualized upper abdomen. 2. Line and tube positions as described. 3. Satisfactory postoperative appearance of the mediastinum with no visible procedural complication. 4. Bilateral platelike atelectasis and central/b ibasilar pulmonary opacities, probably representing atelectasis and or secretions. Findings were conveyed to the Surgical team at 1 2:30 p.m. Impression By: [email or web address] - Jonathan vinson M.D. RADIOLOGY - XR CHEST 1 V 12/20 0656 Report Impression - Status: SIGNED Entered: 12/20/2021 0713 IMPRESSION: Stable radiographic appearance of the chest. Impression By: [email or web address] - Enrico Montero Treatment Prophylaxis Treatment Prophylaxis Drain(s)/tube(s): Drain(s)/tube(s): chest, urinary catheter Diagnosis, Assessment Plan Consultants: cardiology, cardiovascular surgery Free Text DxA P Notes Free text DxA P notes: 76 years old female with PMH of macular degeneration, obesity, obstructive sleep apnea (CPAP at home), former smoker, hypertensio n, hyperlipidemia, diabetes, Crohn's disease, chronic atr ial fibrillation status post 3 ablations in the past (on Xarelto), pacemaker placement CAD -- multiple vesssels HTN DM HLD Crohn's disease chronic atrial fibrillation status post 3 ablati ons macular degeneration obesity obstructive sleep apnea acute respiratory failure --post surgery severe mitral valve regurgitation constrictive pericarditis CAD -- cardiology consult CV surgeon consult CABG -- AM ASA/lipitor afib -- rate control -- hold xarelto for surgery HTN-- continue home med DM-- on lantus -- sliding scale HLD-- on lipitor RONA--cpap as need DVTP -- heparin 12/18- feel sob -- CABG -- afternoon 12/19--post MVR (31 Magna valve), CABG x 1 (ROBERTS- LAD), ILAA and pericardectomy -- she remain intubated on the vent -- chest tube are in place -on levophed and epinephrine drip -- monitor in CCU 12/20- she was extubated --on bipap now -- NPO --off Levophed/epinephrine, continue vasopressi n, inotropes with milrinone, -- chest tube remain in place -- she is stable post surgery review all image and consultants notes Current Medications Sig/Fabby Start time Last Medication Dose Route Stop Time Status Admin Amlodipine Besylate 5 MG DAILY 12/18 899 AC PO 01/17 859 Furosemide 10 MG DAILY 12/18 899 AC PO 01/17 859 Lisinopril 40 MG DAILY 12/18 899 AC PO 01/16 1214 Losartan Potassium 100 MG DAILY 12/18 899 AC PO 01/17 859 Metolazone 10 MG DAILY 12/18 899 AC PO 01/17 08 Pantoprazole 40 MG DAILY@0600 12/18 599 AC PO 01/17 559 Cefazolin Sodium 3 GM PREOP ONCALL 12/18 050 C KD Sodium Chloride 250 ML IV 12/18 235 Metoprolol Tartrate 6.25 MG ONCE ONE 12/18 499 AC PO 12/18 050 Vancomycin HCl 1,750 MG PREOP ONCALL 12/18 050 DC Sodium Chloride 500 ML IV 12/18 235 Vancomycin HCl 1,750 MG PREOP ONCALL 12/18 499 CKD Sodium Chloride 500 ML IV 12/25 045 Verapamil HCl 16.6 MG .Q24H ONE 12/18 499 CKD Heparin Sodium 1,660 UNIT IV 12/19 045 (Porcine) Sodium Bicarbonate 0.7 ML Nitroglycerin/ 8.3 MG Dextrose Lactated Ringer's 949.5 ML Clonidine HCl 0.3 MG BID 12/17 2099 AC PO 01/16 2059 Doxazosin Mesylate 4 MG BEDTIME 12/17 2099 AC PO 01/16 2059 Insulin Glargine 50 UNIT BID 12/17 2099 AC SUBQ 01/16 2059 Insulin Human Lispro 0 AC HS 12/17 2099 AC SUBQ 01/16 2059 Pravastatin Sodium 10 MG 2100 12/17 2099 AC PO 01/16 2059 Dextrose/Water 125 ML ASDIR PRN 12/17 1800 CKD IV 01/16 1759 Dextrose/Water 250 ML ASDIR PRN 12/17 1800 CKD IV 01/16 1759 Glucagon 1 MG ASDIR PRN 12/17 1800 AC IM 01/16 175 Atropine Sulfate 0.5 MG ASDIR PRN 12/17 1200 AC IV 12/18 1158 Sodium Chloride 1,000 ML .[id number] 12/17 1200 AC 12/17 IV 12/17 1839 1404 Sodium Chloride 500 ML ASDIR PRN 12/17 1200 AC IV 12/18 1158 Adenosine 0 .STK-MED ONE 12/17 1052 DC IV Sodium Chloride 50 ML .STK-MED ONE 12/17 1052 D C IV Iopamidol 100 ML .STK-MED ONE 12/17 1034 DC IV 12/17 1035 1034 Fentanyl Citrate 0 .STK-MED ONE 12/17 1019 DC 1005 .ROUTE 1030 Midazolam HCl 0 .STK-MED ONE 12/17 1019 DC 10/0 5 .ROUTE 1030 Heparin Sodium/ 500 ML .STK-MED ONE 12/17 0949 DC 12/17 Sodium Chloride IV 1030 Heparin Sodium 0 .STK-MED ONE 12/17 0940 DC 10 05 .ROUTE 1030 Heparin Sodium/ 1,000 ML .STK-MED ONE 12/17 094 0 DC 12/17 Sodium Chloride IV 1030 Heparin Sodium/ 500 ML .STK-MED ONE 12/17 0940 DC 1005 Sodium Chloride IV 1030 Lidocaine HCl 0 .STK-MED ONE 12/17 0940 DC 10/0 5 .ROUTE 1030 Nitroglycerin/ 250 ML .STK-MED ONE 12/17 0840 D C 12/17 Dextrose IV 1030 Verapamil HCl 0 .STK-MED ONE 12/17 0840 DC 10/0 5 IV 1030 Home Medications: RIVAROXABAN (XARELTO) 20 MG PO DAILY amLODIPine (NORVASC) 5 MG PO DAILY cloNIDine (CATAPRES) 0.3 MG PO BID DOXAZOSIN (CARDURA) LISINOPRIL (ZESTRIL) OLMESARTAN (BENICAR) 40 MG PO DAILY PRAVASTATIN (PRAVACHOL) FUROSEMIDE (LASIX) 10 MG PO DAILY METOLAZONE (ZAROXOLYN) 10 MG PO DAILY POTASSIUM CHLORIDE ER (MICRO-K) 10 MEQ PO DAILY OMEPRAZOLE ER 20 MG PO DAILY GLIMEPIRIDE (AMARYL) 4 MG PO DAILY INSULIN DETEMIR (LEVEMIR FlexTouch (15mL)) 50 UN ITS SUBQ BID INSULIN LISPRO (HumaLOG CARTRIDGE (15mL)) 0 UNIT S SUBQ TID LIRAGLUTIDE (VICTOZA (6mL)) 1.8 MG SUBQ DAILY metFORMIN (GLUCOPHAGE) 1,000 MG PO BID ADALIMUMAB + SUPPLIES (HUMIRA PREFILLED PEN) 40 MG SUBQ Q14D azaTHIOprine (IMURAN) 50 MG PO DAILY [facility]: [facility] Current Medications Current medication review: Home Medications: RIVAROXABAN (XARELTO) 20 MG PO DAILY amLODIPine (NORVASC) 5 MG PO DAILY cloNIDine (CATAPRES) 0.3 MG PO BID DOXAZOSIN (CARDURA) LISINOPRIL (ZESTRIL) OLMESARTAN (BENICAR) 40 MG PO DAILY PRAVASTATIN (PRAVACHOL) FUROSEMIDE (LASIX) 10 MG PO DAILY METOLAZONE (ZAROXOLYN) 10 MG PO DAILY POTASSIUM CHLORIDE ER (MICRO-K) 10 MEQ PO DAILY OMEPRAZOLE ER 20 MG PO DAILY GLIMEPIRIDE (AMARYL) 4 MG PO DAILY INSULIN DETEMIR (LEVEMIR FlexTouch (15mL)) 50 UN ITS SUBQ BID INSULIN LISPRO (HumaLOG CARTRIDGE (15mL)) 0 UNIT S SUBQ TID LIRAGLUTIDE (VICTOZA (6mL)) 1.8 MG SUBQ DAILY metFORMIN (GLUCOPHAGE) 1,000 MG PO BID ADALIMUMAB + SUPPLIES (HUMIRA PREFILLED PEN) 40 MG SUBQ Q14D azaTHIOprine (IMURAN) 50 MG PO DAILY I attest that the foregoing medication list in t he medical record is true, accurate, and complete to the best of my knowled ge. Electronically Signed by Meryl Rosa MD on 2 at 1803 RPT #:[id number] END OF REPORT 2021-12-20 10:41:00-00:00 [facility] Cardiothoracic Surgery Prog REPORT#:[id number] REPORT STATUS: Signed DATE:12/20/21 TIME: 1041 PATIENT: SAÚL GILES UNIT #: [id number] ROOM/BED: 2201-1 : 43 AGE: 76 SEX: F ATTEND: Leah More MD ADM AUTHOR: René Romero * ALL edits or amendments must be made on the el ectronic/computer document * General Post-op: day 1 Status post: 1. Mitral valve replacement (31 Magna valve). 2. Coronary artery bypass graft surgery x1 (ROBERTS to LAD). 3. Isolation of left atrial appendage. 4. Pericardiectomy. Subjective Chief complaint: Shortness of breath Review of Systems Constitutional: Denies: fever, malaise. Allergy/Immun: Denies: allergic reaction. ENT: Denies: sore throat. Respiratory: Denies: SOB. GI: Denies: abdominal pain, nausea, vomiting. Heme: Denies: bleeding. Neuro: Denies: focal weakness, headache. All systems rev neg: except as marked Objective General VS/I O Last Documented: Result Date Time Pulse Ox 95 12/21 723 FiO2 65 12/21 723 Pulse 73 12/21 723 O2 Delivery BiPAP 12/21 723 B/P 100/35 12/20 641 B/P Mean 49 12/20 641 Temp 36.3 12/20 641 Resp 27 12/20 641 O2 Flow Rate 10 12/19 1944 24 hour I O ending at 0700: 12/20 1900 Intake Total 1563.00 1802.00 Output Total 635 540 Balance 928.00 1262.00 Intake, IV 1443.00 1802.00 Intake, Oral 120 Output, Chest 290 225 Tube Drainage Output, Urine 345 315 PATIENT WEIGHT: Weight (lb): 264 Weight (oz): 12.4 Weight (kg): 120.100 Dietitian Nutrition assessment The data set between the solid lines has been im ported from the dietitian's assessment. BMI Calculated: 45.4 Nutrition related diagnosis: Nutrition diagnosis details: Nutrition problem: Nutrition etiology: Nutrition signs and symptoms: Nutrition prescription: Dietitian name: Assessment completed: Physical Exam General appearance: alert, awake, oriented Wound/incision: Location: sternal Site condition: dressing clean dry, dressing in tact HEENT: anicteric Neck: supple/no meningismus Cardiovascular: normal heart sounds, regular rat e rhythm Respiratory: aerating well, symmetric expansion, no distress Abdomen: soft, non-tender, no distention Extremities: moves all 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, 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, normal speech Skin: dry, intact, normal temperature Psychiatry: normal affect, normal mood Current Medications Medications: Active Meds + DC'd Last 24 Hrs Cyanocobalamin (Vitamin B-12 500 mcg tab) 500 MC G DAILY PO Ferrous Sulfate (FERROUS SULFATE) 325 MG DAILY P O Bisacodyl (DULCOLAX) 10 MG ONCE PRN RECTAL Magnesium Hydroxide (MILK OF MAGNESIA) 30 ML ONC E PRN PO Clopidogrel Bisulfate (Plavix) 75 MG DAILY PO Polyethylene Glycol (MIRALAX) 17 GM DAILY PO Dopamine HCl/Dextrose (DOPamine 400MG/D5W 250ML) 250 ML ASDIR IV Pantoprazole (PROTONIX) 40 MG DAILY@0600 PO Furosemide (LASIX 20MG INJ) 10 MG ONCE ONE IV (D C) Vancomycin HCl (VANCOMYCIN HCL) 1,000 MG Q12H IV Sodium Chloride (SODIUM CHLORIDE 0.9%) 250 ML Docusate Sodium (COLACE) 100 MG BID PO Metoprolol Tartrate (LOPRESSOR) 12.5 MG Q12HR PO Sennosides (Senna Lax 8.6 MG TABLET) 17.2 MG BED TIME PO Milrinone Lactate/Dextrose (MILRINONE 20MG/D5W 1 00ML) 100 ML ASDIR IV ( CKD) Vasopressin (VASOSTRICT 20 Unit/NS 100ML) 100 ML ASDIR IV (CKD) Aspirin (ASPIRIN) 81 MG DAILY PO Gabapentin (NEURONTIN) 200 MG BID 9A 5P PO Fentanyl Citrate (SUBLIMAZE) 25 MCG ONCE ONE IV (DC) Amiodarone HCl (CORDARONE) 200 MG TID PO Furosemide (LASIX 20MG INJ) 10 MG ONCE ONE IV (D C) Tramadol HCl (ULTRAM) 25 MG Q4H PRN PRN PO Tramadol HCl (ULTRAM) 50 MG Q4H PRN PRN PO Mupirocin (BACTROBAN 2% 22 GM OINTMENT) 1 APPLIC BID NASAL Acetaminophen (TYLENOL) 650 MG Q4H PRN PRN PO Acetaminophen (TYLENOL) 650 MG Q4H PRN PRN RECTA L Albumin Human (ALBUMINAR 25%) 25 GM ASDIR PRN IV Calcium Chloride (CALCIUM CHLORIDE) 1 GM ASDIR P RN IV Chlorhexidine Gluconate (PERIDEX) 15 ML Q2H MM ( CKD) Dextrose/Water (DEXTROSE 10% IN WATER) 125 ML DIR PRN IV (CKD) Dextrose/Water (DEXTROSE 10% IN WATER) 250 ML DIR PRN IV (CKD) Epinephrine (ADRENALIN CHLORIDE) 5 MG ASDIR IV Dextrose/Water (DEXTROSE 5% WATER) 245 ML Glucagon (GLUCAGON) 1 MG ASDIR PRN IM Insulin Human Regular (HumuLIN R) 100 UNIT ASDIR IV (CKD) Sodium Chloride (SODIUM CHLORIDE 0.9%) 99 ML Magnesium Sulfate (MAGNESIUM SULFATE 4GM/SWFI 10 0ML) 100 ML ASDIR PRN IV Magnesium Sulfate (MAGNESIUM SULFATE 2GM/SWFI 50 ML) 50 ML ASDIR PRN IV Magnesium Sulfate/Dextrose (MAGNESIUM SULFATE 1G M/D5W 100ML) 100 ML ASDIR PRN IV Nitroglycerin/Dextrose (NITROGLYCERIN 50,000MCG/ D5W 250ML) 250 ML ASDIR IV Norepinephrine Bitartrate (NOREPINEPHRINE 8 MG/N S 250 ML) 250 ML TITRATE IV Oxycodone HCl (ROXICODONE) 5 MG Q4H PRN PRN PO ( DC) Oxycodone HCl (ROXICODONE) 10 MG Q4H PRN PRN PO (DC) Potassium Chloride (KCL 20MEQ/SWFI 100ML) 100 ML ASDIR PRN IV Sodium Bicarbonate (SODIUM BICARBONATE) 50 MEQ A SDIR PRN IV Sodium Chloride (SODIUM CHLORIDE 0.9%) 1,000 ML .Q20H IV Sodium Chloride (SODIUM CHLORIDE 0.9%) 250 ML Q2 4H IV Vancomycin HCl (VANCOMYCIN HCL) 1,750 MG PREOP O NCALL IV (DC) Sodium Chloride (SODIUM CHLORIDE 0.9%) 500 ML Verapamil HCl (ISOPTIN) 16.6 MG PREOP ONCALL IV (DC) Heparin Sodium (Porcine) (HEPARIN SODIUM) 1,660 UNIT Sodium Bicarbonate (SODIUM BICARBONATE) 0.7 ML Nitroglycerin/Dextrose (NITROGLYCERIN 50MG/D5W 250ML) 8.3 MG Lactated Ringer's (LACTATED RINGERS) 949.5 ML Atorvastatin Calcium (LIPITOR) 40 MG 2100 PO Ceftriaxone Sodium (ROCEPHIN 1000MG VIAL) 1,000 MG Q24H IV Sodium Chloride (SODIUM CHLORIDE) 10 ML Acetaminophen (TYLENOL EXTRA STRENGTH) 1,000 MG PREOP ONCALL PO (DC) Gabapentin (NEURONTIN) 200 MG PREOP ONCALL PO (D C) Ondansetron HCl (ZOFRAN) 4 MG Q6H PRN PRN IV Amlodipine Besylate (NORVASC) 5 MG DAILY PO Acetaminophen (TYLENOL EXTRA STRENGTH) 1,000 MG PREOP ONCALL PO (DC) Gabapentin (NEURONTIN) 200 MG PREOP ONCALL PO (D C) Pantoprazole (PROTONIX) 40 MG DAILY@0600 PO (DC) Vancomycin HCl (VANCOMYCIN HCL) 1,750 MG PREOP O NCALL IV (CKD) Sodium Chloride (NS 0.9%) 500 ML Clonidine HCl (CATAPRES) 0.3 MG BID PO (DC) Doxazosin Mesylate (CARDURA) 4 MG BEDTIME PO (DC ) Insulin Glargine (Lantus/Semglee) 50 UNIT BID [place] BQ (DC) Insulin Human Lispro (HUMALOG) 0 AC HS SUBQ (DC) Dextrose/Water (DEXTROSE 10% IN WATER) 125 ML DIR PRN IV (DC) Dextrose/Water (DEXTROSE 10% IN WATER) 250 ML DIR PRN IV (DC) Glucagon (GLUCAGON) 1 MG ASDIR PRN IM (DC) Results Findings/Data: Laboratory Tests 12/20 12/20 12/19 12/19 0695 5736 5588 4114 Blood Gas Puncture Site Art Line Art Line Art Line Art Li ne O2 Saturation (90 - 100 %) 94.9 90.4 97.0 93.8 ABG pH (7.35 - 7.45) 7.239 *L 7.278 *L 7.301 L 7.284 *L ABG pCO2 (35.0 - 45 mmHg) 67.0 *H 66.1 *H 61.1 *H 68.4 *H ABG pO2 (80 - 100.0 mmHg) 90.6 70.0 L 103.3 H 8 2.3 ABG PO2/FiO2 Ratio (mm/Hg) 90.60 116.66 172.16 137.16 ABG HCO3 (22.0 - 26.0 MMOL/L) 28.6 *H 30.8 *H 3 0.1 *H 32.4 *H ABG Total CO2 30.7 32.8 32.0 34.4 ABG Base Excess (-4.0 - 4.0 MMOL/L) 1.2 4.1 H 3.7 5.7 H ABG Hematocrit (33.0 - 45.0 %) 22 L 21 L 22 L 2 3 L ABG Hemoglobin (11.0 - 15.0 G/DL) 7.6 L 7.2 L 7 .5 L 7.9 L Martin Test N/A Sodium (134 - 147 MEQ/L) 141 142 143 143 Potassium (3.4 - 5.0 MEQ/L) 4.4 4.6 4.7 4.6 Chloride (100 - 108 MEQ/L) 110 H 108 108 108 Ionized Calcium (1.12 - 1.32 MMOL/L) 1.28 1.33 H 1.29 1.33 H Lactic Acid (0.9 - 1.7 mmol/l) 0.8 L 0.8 L 0.8 L 0.7 L Temperature (F) 98.9 98.8 99 Respiration Rate (/MIN) 26 O2 Delivery Device BiPAP BiPAP Vent Mode BiLevel Vent Rate (/MIN) 26 FiO2 (%) 100 60 60 60 Inspiratory Time 1 PEEP (cmH2O) 5 5 5 5 Pressure Support (cmH2O) 15 12/19 1856 1650 1446 Blood Gas Puncture Site Art Line Art Line Art Line Art Li ne O2 Saturation (90 - 100 %) 93.0 99.6 97.0 93.5 ABG pH (7.35 - 7.45) 7.283 *L 7.276 *L 7.333 L 7.482 H ABG pCO2 (35.0 - 45 mmHg) 68.1 *H 65.7 *H 56.4 *H 37.2 ABG pO2 (80 - 100.0 mmHg) 78.8 L 203.2 *H 99.2 62.0 L ABG PO2/FiO2 Ratio (mm/Hg) 131.33 254.00 198.40 155.00 ABG HCO3 (22.0 - 26.0 MMOL/L) 32.1 *H 30.6 *H 2 9.9 *H 27.9 H ABG Total CO2 34.2 32.6 31.6 29.1 ABG Base Excess (-4.0 - 4.0 MMOL/L) 5.5 H 3.8 4.0 4.3 H ABG Hematocrit (33.0 - 45.0 %) 23 L 24 L 24 L 2 6 L ABG Hemoglobin (11.0 - 15.0 G/DL) 7.8 L 8.2 L 8 .3 L 8.9 L Martin Test N/A N/A Sodium (134 - 147 MEQ/L) 142 146 143 144 Potassium (3.4 - 5.0 MEQ/L) 4.5 4.4 4.4 4.3 Chloride (100 - 108 MEQ/L) 109 H 108 108 106 Ionized Calcium (1.12 - 1.32 MMOL/L) 1.31 1.29 1.23 1.27 Lactic Acid (0.9 - 1.7 mmol/l) 0.8 L 0.5 L 0.9 1.6 Temperature (F) 99 98.6 97.7 O2 Delivery Device BiPAP BiPAP Adult Vent Vent Mode CPAP/PS AC AC Vent Rate (/MIN) 24 FiO2 (%) 60 80 50 40 Tidal Volume (ml) 450 PEEP (cmH2O) 578 5 5 Pressure Support (cmH2O) 14 10 12/19 12/19 12/19 12/19 1307 1256 1123 1049 Blood Gas Puncture Site [place] Art Line O2 Saturation (90 - 100 %) 94.0 99.9 99.8 ABG pH (7.35 - 7.45) 7.383 7.472 H 7.467 H ABG pCO2 (35.0 - 45 mmHg) 51.0 *H 35.8 42.3 ABG pO2 (80 - 100.0 mmHg) 72.1 L 303.1 *H 226.6 *H ABG PO2/FiO2 Ratio (mm/Hg) 144.20 ABG HCO3 (22.0 - 26.0 MMOL/L) 30.4 *H 26.2 H 30 .6 *H ABG Total CO2 32.0 27.2 31.9 ABG Base Excess (-4.0 - 4.0 MMOL/L) 5.3 H 2.5 6 .2 H ABG Hematocrit (33.0 - 45.0 %) 26 L 27 L 26 L 2 5 L ABG Hemoglobin (11.0 - 15.0 G/DL) 8.9 L 9.2 L 9 .0 L 8.5 L Martin Test N/A VBG pH (7.33 - 7.45) 7.334 VBG pCO2 (43 - 47 mmHg) 57.2 *H VBG pO2 (10 - 50 mmHG) 35.1 VBG HCO3 (22 - 27 MMOL/L) 30.5 H POC VBG Total CO2 32.2 VBG O2 Saturation (60 - 80 %) 61.8 VBG Base Excess (-4.0 - 4.0 MMOL/L) 4.6 H Sodium (134 - 147 MEQ/L) 143 144 145 143 Potassium (3.4 - 5.0 MEQ/L) 3.7 3.8 4.5 5.2 H Chloride (100 - 108 MEQ/L) 105 105 106 104 Ionized Calcium (1.12 - 1.32 1.30 1.29 1.33 H 1.18 MMOL/L) Lactic Acid (0.9 - 1.7 mmol/l) 1.9 H 2.0 H 2.3 H 1.4 Temperature (F) 98 O2 Delivery Device Adult Vent Vent Mode AC Vent Rate (/MIN) 18 FiO2 (%) 60 50 Tidal Volume (ml) 450 500 PEEP (cmH2O) 5 5 Laboratory Tests 12/20 12/20 12/20 12/20 12/19 0940 0815 0318 8948 0832 Chemistry Sodium (134 - 147 mEq/L) 144 Potassium (3.4 - 5.0 mEq/L) 4.8 Chloride (100 - 108 mEq/L) 108 Carbon Dioxide (21 - 33 mEq/l) 28 Anion Gap (0 - 20) 12 BUN (7 - 18 mg/dL) 21 H Creatinine (0.6 - 1.3 mg/dL) 1.4 H POC Creatinine (0.6 - 1.0 mg/dL) 1.8 H 1.4 H 1. 2 H Glomerular Filtr Rate (70 - 80) 36.4 L Glucose (70 - 110 mg/dL) 179 H POC Glucose (70 - 110 MG/DL) 191 H POC Glucose (mg/dL) (70 - 110 MG/DL) 170 H 172 H 178 H Calcium (8.0 - 10.5 mg/dL) 9.4 Magnesium (1.80 - 2.40 mg/dL) 2.32 Total Bilirubin (0.0 - 1.0 mg/dL) 0.60 Direct Bilirubin (0.0 - 0.30 MG/DL) 0.40 H Indirect Bilirubin (MG/DL) 0.20 AST (15 - 37 IUnit/L) 40 H ALT (30 - 65 IUnit/L) 8 L Total Alk Phosphatase (20 - 125 IUnit/L) 38 Total Protein (6.4 - 8.2 g/dL) 6.1 L Albumin (3.4 - 5.0 g/dL) 4.30 12/19 12/19 12/19 12/19 12/19 2245 2105 2006 1856 1650 Chemistry Sodium (134 - 147 mEq/L) 146 Potassium (3.4 - 5.0 mEq/L) 4.8 Chloride (100 - 108 mEq/L) 108 Carbon Dioxide (21 - 33 mEq/l) 29 Anion Gap (0 - 20) 14 BUN (7 - 18 mg/dL) 21 H Creatinine (0.6 - 1.3 mg/dL) 1.1 POC Creatinine (0.6 - 1.0 mg/dL) 1.2 H 1.1 H 0. 9 0.9 Glomerular Filtr Rate (70 - 80) 48.0 L Glucose (70 - 110 mg/dL) 186 H POC Glucose (mg/dL) (70 - 110 MG/DL) 163 H 171 H 159 H 125 H Calcium (8.0 - 10.5 mg/dL) 9.1 Ionized Calcium Gigi (1.09 - 1.30 MMOL/L) 1.16 Phosphorus (2.5 - 4.9 MG/DL) 3.9 Magnesium (1.80 - 2.40 mg/dL) 2.45 H 12/19 12/19 12/19 12/19 12/19 1450 1446 1307 1257 1257 Chemistry Sodium (134 - 147 mEq/L) 147 Potassium (3.4 - 5.0 mEq/L) 3.6 Chloride (100 - 108 mEq/L) 109 H Carbon Dioxide (21 - 33 mEq/l) 28 Anion Gap (0 - 20) 14 BUN (7 - 18 mg/dL) 18 Creatinine (0.6 - 1.3 mg/dL) 0.8 POC Creatinine (0.6 - 1.0 mg/dL) 0.9 0.8 Glomerular Filtr Rate (70 - 80) 69.4 L Glucose (70 - 110 mg/dL) 153 H POC Glucose (mg/dL) (70 - 110 MG/DL) 126 H 141 H Lactic Acid (0.4 - 1.9 mmol/l) 1.8 2.2 H Calcium (8.0 - 10.5 mg/dL) 8.7 Magnesium (1.80 - 2.40 mg/dL) 2.45 H Total Bilirubin (0.0 - 1.0 mg/dL) 1.00 Direct Bilirubin (0.0 - 0.30 MG/DL) 0.40 H Indirect Bilirubin (MG/DL) 0.60 AST (15 - 37 IUnit/L) 44 H ALT (30 - 65 IUnit/L) 11 L Total Alk Phosphatase (20 - 125 IUnit/L) 47 Total Protein (6.4 - 8.2 g/dL) 5.5 L Albumin (3.4 - 5.0 g/dL) 3.20 L 12/19 12/19 12/19 1256 1123 1049 Chemistry POC Creatinine (0.6 - 1.0 mg/dL) 0.9 0.8 0.9 POC Glucose (mg/dL) (70 - 110 MG/DL) 144 H 168 H 180 H Laboratory Tests 12/20 1257 1125 1051 Coagulation INR (0.8 - 1.2) 1.3 H 1.5 H PTT ([place]) (25.0 - 39.5 Seconds) 25.0 24.4 L PT Patient/Control Mix (9.3 - 12.9 SECONDS) 14. 9 H 16.7 H Activated Coag Time (74 - 137 SEC) 115 491 H Fibrinogen (160 - 450 MG/DL) 278 Laboratory Tests 12/20 12/19 12/19 0315 2245 1257 Hematology WBC (4.5 - 11.0 x10 3/uL) 7.1 6.7 7.8 RBC (3.54 - 5.02 x10 6/uL) 2.03 L 2.00 L 2.37 L Hgb (11.0 - 15.0 g/dL) 7.2 L 7.5 L 9.3 L Hct (33.0 - 45.0 %) 22.6 L 22.4 L 26.5 L MCV (81.0 - 99.0 fL) 111.3 H 112.0 H 111.8 H MCH (27.0 - 33.0 pg) 35.5 H 37.5 H 39.2 H MCHC (33.0 - 37.0 g/dL) 31.9 L 33.5 35.1 RDW (11.5 - 14.5 %) 16.0 H 16.1 H 15.8 H Plt Count (150 - 400 x10 3/uL) 65 L 62 L 76 L MPV (7.0 - 9.0 fL) 11.2 H 12.0 H 10.9 H Neut % (Auto) (56.0 - 77.0 %) 87.7 H 89.4 H 87. 6 H Lymph % (Auto) (14.0 - 32.0 %) 3.5 L 2.5 L 3.1 L Barron % (Auto) (4.8 - 9.0 %) 8.1 7.6 8.3 Eos % (Auto) (0.3 - 3.7 %) 0.0 L 0.0 L 0.1 L Baso % (Auto) (0.0 - 2.0 %) 0.1 0.1 0.1 Neut # (Auto) (2.0 - 7.6 x10 3/uL) 6.25 5.95 6. 83 Lymph # (Auto) (1.0 - 3.8 x10 3/uL) 0.25 L 0.17 L 0.24 L Barron # (Auto) (0.1 - 0.8 x10 3/uL) 0.58 0.51 0. 65 Eos # (Auto) (0.0 - 0.2 x10 3/uL) 0.00 0.00 0.0 1 Baso # (Auto) (0.0 - 0.2 x10 3/uL) 0.01 0.01 0. 01 Abs Immat Gran (auto) (0.00 - 0.03 x10 3/uL) 0. 04 H 0.03 0.06 H Add Manual Diff NO NO NO Immature Gran % (0.0 - 2.0 %) 0.6 0.4 0.8 Nucleated RBC % (0 - 0 %) 0.0 0.0 0.0 Nucleated RBCs # (Man) (0.0 - 0.1 x10 3/uL) 0.0 0 0.00 0.00 Platelet Estimate (ADEQUATE THOUSAND) 76-95 Immature Plt Fraction (0.9 - 11.2 %) 8.3 6.5 Polychromasia 1+ Anisocytosis 1+ Macrocytosis 1+ Radiology data: Recent Impressions: RADIOLOGY - XR CHEST 1 V 12/19 1315 Report Impression - Status: SIGNED Entered: 12/19/2021 1516 IMPRESSION: 1. There are patchy opacities throughout the dahlia gs, which could represent atelectasis. 2. Increased interstitial markings, which could represent pulmonary edema. Impression By: [email or web address] - Enrico Wang. RADIOLOGY - XR CHEST 1 V 12/19 1336 Report Impression - Status: SIGNED Entered: 12/19/2021 1403 IMPRESSION: 1. No retained metallic structure resembling a s urgical needle in the chest or visualized upper abdomen. 2. Line and tube positions as described. 3. Satisfactory postoperative appearance of the mediastinum with no visible procedural complication. 4. Bilateral platelike atelectasis and central/b ibasilar pulmonary opacities, probably representing atelectasis and or secretions. Findings were conveyed to the Surgical team at 1 2:30 p.m. Impression By: [email or web address] - Jonathan vinson M.D. RADIOLOGY - XR CHEST 1 V 12/20 0656 Report Impression - Status: SIGNED Entered: 12/20/2021 0713 IMPRESSION: Stable radiographic appearance of the chest. Impression By: [email or web address] - Enrico Montero Results: labs reviewed, vital signs stable, anna marie hughes personally rev'd, x-ray personally reviewed, current med profile rev'd Treatment Prophylaxis Treatment Prophylaxis Oxygen: CPAP/BIPAP Lines: arterial, CVC, peripheral CVC/PICC documentation: The data below has been imported from nursing do cumentation. Any exceptions have been noted below under Provider comments. CVC/PICC insertion date/time: CVC multi lumen tr iple Internal jugular Right Inserted 12/19/21 0722 ABRAN lisa theter triple Internal jugular Right Inserted 1200 Provider comments on imported nursing data: [] Drain(s)/tube(s): Drain(s)/tube(s): chest, urinary catheter Quality: Trauma Gen Surg Current Medications Current medication review: Home Medications: RIVAROXABAN (XARELTO) 20 MG PO DAILY amLODIPine (NORVASC) 5 MG PO DAILY cloNIDine (CATAPRES) 0.3 MG PO BID DOXAZOSIN (CARDURA) LISINOPRIL (ZESTRIL) OLMESARTAN (BENICAR) 40 MG PO DAILY PRAVASTATIN (PRAVACHOL) FUROSEMIDE (LASIX) 10 MG PO DAILY METOLAZONE (ZAROXOLYN) 10 MG PO DAILY POTASSIUM CHLORIDE ER (MICRO-K) 10 MEQ PO DAILY OMEPRAZOLE ER 20 MG PO DAILY GLIMEPIRIDE (AMARYL) 4 MG PO DAILY INSULIN DETEMIR (LEVEMIR FlexTouch (15mL)) 50 UN ITS SUBQ BID INSULIN LISPRO (HumaLOG CARTRIDGE (15mL)) 0 UNIT S SUBQ TID LIRAGLUTIDE (VICTOZA (6mL)) 1.8 MG SUBQ DAILY metFORMIN (GLUCOPHAGE) 1,000 MG PO BID ADALIMUMAB + SUPPLIES (HUMIRA PREFILLED PEN) 40 MG SUBQ Q14D azaTHIOprine (IMURAN) 50 MG PO DAILY I attest that the foregoing medication list in t he medical record is true, accurate, and complete to the best of my knowled ge. Diagnosis, Assessment Plan Hospital course to date: This very pleasant 76-year-old female, from [facility], with past medical history of macular d egeneration, obesity, obstructive sleep apnea (CPAP at home), former smoker, hyp ertension, hyperlipidemia, diabetes, Crohn's disease , chronic atrial fibrillatio n status post 3 ablations in the past (on Xarelto), pacemaker placement who had a recent admission t o the hospital with heart failure symptoms. She has be en admitted to the hospital today for elective heart cath. Coronary angiogram showed severe multivess el coronary artery disease suitable for percutaneous intervention. CV surge ry called for evaluation. PLAN Patient has severe coronary artery disease and c onstrictive pericarditis. She will benefit from off-pump L CHAD to LAD and pericardiotomy. Dr. Romero explained to the patient the surgery, risks involv ed, STS score, benefits, complications and alternatives. She acknowledged understanding and is willing to proceed Preop work-up has been initiated We will tentatively schedule patient for surgery tomorrow. 12/18 Preop assessment ongoing No carotid stenosis on ultrasound CT chest reviewed with Dr. Romero Surgery rescheduled for tomorrow NPO after midnight Plan discussed with the patient 12/20 POD 1 Patient hemodynamically stable, cardiac index 3. 1 Required Bipap after extubation yesterday and ov ernight Trend ABGs- wean bipap as tolerated Decrease milrinone drip to 0.125, and continue v asopressin at 0.02 Urine output marginal- dopamine drip started at 3 Creatinine increased to 1.4, monitor strict I an d O's Encourage po intake, incentive spirometer use Try to get patient out of bed to chair today PT/OT Monitor patient closely in the CVICU Consultants: cardiology, cardiovascular surgery at 1736 RPT #:[id number] END OF REPORT 2021-12-20 08:44:00-00:00 [facility] REPORT#:[id number] REPORT STATUS: Signed DATE:12/20/21 TIME: 843 PATIENT: SAÚL GILES UNIT #: [id number] ROOM/BED: [place] [address] : 43 AGE: 76 SEX: F ATTEND: Leah More MD ADM AUTHOR: Jayna Gonzales NP * ALL edits or amendments must be made on the [employer]/computer document * Subjective Chief complaint: Pt seen and examined. HPI: Ms Giles is a 76 y/o Femal w / PMHx: CAD, HLD, T2DM, RONA (CPAP at home), smoker, Crohn's disease, AF s/p ablation (on Xar elto), s/p PPM and lymphedema; patient is from [place]. Dr. Fortune is consulted f or CAD. Patient experienced intermittent nonradiated chest tightness . She reports sob x 1 year, was placed on diuretics; however her sob is not res olved. LHC showed 70% stenosis of left proximal LAD, diffuse LAD, distal LAD 80 % stenosis, constrictive pericarditis. CTS was consulted. Nursing reports: No: complaints. Comments: Pt is on Bipap 20/5, 100%. She is on dopamin 3mcg/kg/mi n for low u/o, Milrinone 0.125mg/kg/min, Vasopressin 0.03units/min, and RHI 3 units/h. SBP 90's, PAP 60's. Telemetry shows 100% VPaced. CT x 3. Objective General VS/I O: 24 hour I O ending at 0700: 12/19 1900 12/20 0700 Intake Total 1802.00 1563.00 Output Total 540 635 Balance 1262.00 928.00 Intake, IV 1802.00 1443.00 Intake, Oral 120 Output, Chest 225 290 Tube Drainage Output, Urine 315 345 Vital Signs: Date Time Temp Pulse Resp B/P B/P Pulse O2 O2 Flow FiO2 Mean Ox Delivery Rate 12/20 0624 73 95 65 12/20 0624 95 BiPAP 65 12/20 0542 97.3 73 27 100/35 49 96 / 0630 96/33 47 10/ 0630 97.3 73 27 91/42 61 96 / 0615 101/35 50 10/ 0615 97.3 73 25 96/45 65 94 / 0600 104/36 51 10/ 0600 97.3 73 27 97/46 66 93 10/ 0545 104/38 55 10/ 0545 97.3 75 26 98/53 73 94 10/ 0533 104/35 52 10/ 0533 97.5 76 26 92/43 62 94 10/ 0530 103/37 52 10/ 0530 97.5 76 26 98/42 60 94 10/ 0515 97.5 73 26 108/41 59 93 10/ 0500 117/42 58 10/ 0500 97.5 73 28 112/52 75 93 10/ 0445 115/42 59 10/08 0445 97.7 72 26 108/52 75 94 10/08 0430 105/40 55 10/08 0430 97.7 72 26 105/48 69 95 10/08 0416 72 99 65 10/08 0415 101/40 55 10/08 0415 97.7 73 26 104/50 72 89 10/08 0400 99/33 49 10/08 0400 97.7 72 27 102/47 68 92 10/08 0345 98/34 49 10/08 0345 97.7 73 26 102/48 69 90 10/08 0330 91/32 47 10/08 0330 97.7 72 27 97/46 66 92 10/08 0315 97.7 72 23 95/44 64 93 10/08 0300 97.9 73 26 92/44 64 91 10/08 0245 90/33 47 10/08 0245 97.9 73 27 97/46 67 93 10/08 0230 95/34 49 10/08 0230 97.9 72 26 106/49 71 94 10/08 0215 102/36 52 10/08 0215 97.9 72 27 105/50 72 94 10/08 0200 102/36 53 10/08 0200 98.1 73 27 105/51 74 95 10/08 0145 103/37 55 10/08 0145 98.2 73 27 108/51 74 94 10/08 0130 104/37 54 10/08 0130 98.2 73 25 107/51 74 95 10/08 0115 113/45 64 10/08 0115 98.2 73 26 110/55 79 96 10/08 0100 92/36 51 10/08 0100 98.2 72 26 98/47 68 97 10/08 0047 72 99 55 10/08 0045 98.2 72 26 97/46 67 98 10/08 0030 95/35 50 10/08 0030 98.4 69 26 100/48 69 98 10/08 0015 98/36 51 10/08 0015 98.4 69 26 102/48 69 97 10/08 0008 90/32 47 10/08 0008 98.4 69 31 97/46 66 97 10/08 0000 92/32 46 10/08 0000 98.4 69 28 104/47 68 98 10/07 2345 117/38 56 10/07 2345 98.6 69 26 124/53 76 96 10/07 2331 105/36 52 10/ 2331 98.6 69 27 134/55 70 93 10/07 2330 98.6 73 27 93/35 48 87 10/07 2315 109/38 57 10/07 2315 98.6 76 27 110/51 74 95 10/07 2300 95/34 49 10/ 2300 98.8 72 34 102/47 68 96 10/07 2245 91/33 48 10/ 2245 98.8 72 27 98/46 67 96 10/ 2235 92 99 60 10/07 2230 95/34 48 10/07 2230 98.8 72 36 104/47 68 96 10/ 2215 102/38 54 10/07 2215 99.0 72 27 113/51 74 96 10/ 2200 117/44 62 10/ 2200 98.8 72 26 115/53 76 95 10/ 2145 117/46 64 10/ 2145 98.8 71 26 122/56 81 93 10/ 2142 124/49 69 10/ 2142 98.8 75 29 120/56 80 92 10/ 2130 99/35 50 10/ 2130 99.0 69 28 101/47 68 95 10/ 2115 93/36 51 10/2114 99.0 70 21 100/45 65 96 10/ 2100 94/39 55 10/ 2100 99.0 69 22 104/49 71 97 10/5 92/39 54 10/2044 99.0 73 29 103/44 63 90 12/19 2029 101/41 58 102029 99.0 69 20 109/46 66 95 12/19 2014 94/36 52 102014 99.0 69 18 101/48 69 94 101999 BiPAP 60 12/20 1999 99/37 55 101999 98.8 72 97 BiPAP 60 12/20 1999 99.0 69 21 111/44 63 94 12/19 1944 98/34 51 101944 98.8 69 24 103/46 67 90 12/20 1943 90 High flow 10 nasal cannula 12/19 1929 98/35 55 10/1929 98.8 73 26 109/47 68 96 12/19 1914 100/34 53 12/19 1914 98.8 70 19 107/51 73 96 10/07 1900 104/35 55 10/07 1900 98.8 71 24 111/49 70 98 10/07 1845 98.6 69 20 104/51 74 99 10/07 1833 98.6 69 24 118/44 65 99 10/07 1830 98.6 69 23 124/49 70 99 10/07 1818 98.6 69 20 114/43 63 99 10/07 1815 98.6 69 21 116/53 77 94 10/07 1803 98.4 69 20 112/43 62 94 10/07 1748 98.4 69 23 84/34 48 95 10/07 1745 98.6 69 22 99/44 64 95 10/07 1733 98.4 69 18 107/41 60 94 10/07 1730 98.4 69 18 114/46 67 94 10/07 1718 98.4 69 17 78/49 62 94 10/07 1716 98.4 69 23 110/47 68 94 10/07 1700 98.4 69 21 96/46 66 81 10/07 1700 69 94 50 10/07 1645 98.4 69 22 95/42 60 99 10/07 1640 98.4 69 19 92/45 64 97 10/07 1635 98.4 71 18 94/45 65 97 10/07 1633 98.4 70 18 73/38 52 97 10/07 1625 71 20 96 10/07 1625 71 96 50 10/07 1618 98.4 74 12 85/49 62 97 10/07 1603 98.2 75 24 108/48 67 100 10/07 1600 98.2 75 24 108/51 74 100 10/07 1548 98.1 72 24 92/47 63 100 10/07 1533 98.1 72 24 101/51 69 100 10/07 1518 97.9 72 24 100/47 64 100 10/07 1503 97.9 75 24 96/46 62 92 10/07 1500 97.9 75 24 103/51 71 96 10/07 1448 97.9 73 24 102/53 72 97 10/07 1433 97.7 72 24 94/46 61 99 10/07 1418 97.7 77 24 100/54 70 96 10/07 1403 97.5 75 24 111/56 73 100 10/07 1400 97.5 69 25 108/55 76 100 10/07 1348 97.5 69 24 105/49 67 99 12/19 1300 50 12/19 1300 Ventilator 50 12/19 1259 80 93 60 12/19 1255 60 12/19 1249 93 Ventilator 50 12/19 1249 80 93 50 PATIENT WEIGHT: Weight (lb): 264 Weight (oz): 12.4 Weight (kg): 120.100 Medications: Active Meds + DC'd Last 24 Hrs Cyanocobalamin (Vitamin B-12 500 mcg tab) 500 MC G DAILY PO Ferrous Sulfate (FERROUS SULFATE) 325 MG DAILY P O Bisacodyl (DULCOLAX) 10 MG ONCE PRN RECTAL Magnesium Hydroxide (MILK OF MAGNESIA) 30 ML ONC E PRN PO Clopidogrel Bisulfate (Plavix) 75 MG DAILY PO Polyethylene Glycol (MIRALAX) 17 GM DAILY PO Dopamine HCl/Dextrose (DOPamine 400MG/D5W 250ML) 250 ML ASDIR IV Pantoprazole (PROTONIX) 40 MG DAILY@0600 PO Furosemide (LASIX 20MG INJ) 10 MG ONCE ONE IV (D C) Vancomycin HCl (VANCOMYCIN HCL) 1,000 MG Q12H IV Sodium Chloride (SODIUM CHLORIDE 0.9%) 250 ML Docusate Sodium (COLACE) 100 MG BID PO Metoprolol Tartrate (LOPRESSOR) 12.5 MG Q12HR PO Sennosides (Senna Lax 8.6 MG TABLET) 17.2 MG BED TIME PO Milrinone Lactate/Dextrose (MILRINONE 20MG/D5W 1 00ML) 100 ML ASDIR IV ( CKD) Vasopressin (VASOSTRICT 20 Unit/NS 100ML) 100 ML ASDIR IV (CKD) Aspirin (ASPIRIN) 81 MG DAILY PO Gabapentin (NEURONTIN) 200 MG BID 9A 5P PO Fentanyl Citrate (SUBLIMAZE) 25 MCG ONCE ONE IV (DC) Amiodarone HCl (CORDARONE) 200 MG TID PO Furosemide (LASIX 20MG INJ) 10 MG ONCE ONE IV (D C) Tramadol HCl (ULTRAM) 25 MG Q4H PRN PRN PO Tramadol HCl (ULTRAM) 50 MG Q4H PRN PRN PO Mupirocin (BACTROBAN 2% 22 GM OINTMENT) 1 APPLIC BID NASAL Acetaminophen (TYLENOL) 650 MG Q4H PRN PRN PO Acetaminophen (TYLENOL) 650 MG Q4H PRN PRN RECTA L Albumin Human (ALBUMINAR 25%) 25 GM ASDIR PRN IV Calcium Chloride (CALCIUM CHLORIDE) 1 GM ASDIR P RN IV Chlorhexidine Gluconate (PERIDEX) 15 ML Q2H MM ( CKD) Dextrose/Water (DEXTROSE 10% IN WATER) 125 ML DIR PRN IV (CKD) Dextrose/Water (DEXTROSE 10% IN WATER) 250 ML DIR PRN IV (CKD) Epinephrine (ADRENALIN CHLORIDE) 5 MG ASDIR IV Dextrose/Water (DEXTROSE 5% WATER) 245 ML Glucagon (GLUCAGON) 1 MG ASDIR PRN IM Insulin Human Regular (HumuLIN R) 100 UNIT ASDIR IV (CKD) Sodium Chloride (SODIUM CHLORIDE 0.9%) 99 ML Magnesium Sulfate (MAGNESIUM SULFATE 4GM/SWFI 10 0ML) 100 ML ASDIR PRN IV Magnesium Sulfate (MAGNESIUM SULFATE 2GM/SWFI 50 ML) 50 ML ASDIR PRN IV Magnesium Sulfate/Dextrose (MAGNESIUM SULFATE 1G M/D5W 100ML) 100 ML ASDIR PRN IV Nitroglycerin/Dextrose (NITROGLYCERIN 50,000MCG/ D5W 250ML) 250 ML ASDIR IV Norepinephrine Bitartrate (NOREPINEPHRINE 8 MG/N S 250 ML) 250 ML TITRATE IV Oxycodone HCl (ROXICODONE) 5 MG Q4H PRN PRN PO ( DC) Oxycodone HCl (ROXICODONE) 10 MG Q4H PRN PRN PO (DC) Potassium Chloride (KCL 20MEQ/SWFI 100ML) 100 ML ASDIR PRN IV Sodium Bicarbonate (SODIUM BICARBONATE) 50 MEQ A SDIR PRN IV Sodium Chloride (SODIUM CHLORIDE 0.9%) 1,000 ML .Q20H IV Sodium Chloride (SODIUM CHLORIDE 0.9%) 250 ML Q2 4H IV Protamine Sulfate (PROTAMINE SULFATE) 0 .STK-MED ONE IV (DC) Vancomycin HCl (VANCOMYCIN HCL) 1,750 MG PREOP O NCALL IV (DC) Sodium Chloride (SODIUM CHLORIDE 0.9%) 500 ML Verapamil HCl (ISOPTIN) 16.6 MG PREOP ONCALL IV (DC) Heparin Sodium (Porcine) (HEPARIN SODIUM) 1,660 UNIT Sodium Bicarbonate (SODIUM BICARBONATE) 0.7 ML Nitroglycerin/Dextrose (NITROGLYCERIN 50MG/D5W 250ML) 8.3 MG Lactated Ringer's (LACTATED RINGERS) 949.5 ML Atorvastatin Calcium (LIPITOR) 40 MG 2100 PO Ceftriaxone Sodium (ROCEPHIN 1000MG VIAL) 1,000 MG Q24H IV Sodium Chloride (SODIUM CHLORIDE) 10 ML Acetaminophen (TYLENOL EXTRA STRENGTH) 1,000 MG PREOP ONCALL PO (DC) Gabapentin (NEURONTIN) 200 MG PREOP ONCALL PO (D C) Ondansetron HCl (ZOFRAN) 4 MG Q6H PRN PRN IV Amlodipine Besylate (NORVASC) 5 MG DAILY PO Acetaminophen (TYLENOL EXTRA STRENGTH) 1,000 MG PREOP ONCALL PO (DC) Gabapentin (NEURONTIN) 200 MG PREOP ONCALL PO (D C) Pantoprazole (PROTONIX) 40 MG DAILY@0600 PO (DC) Vancomycin HCl (VANCOMYCIN HCL) 1,750 MG PREOP O NCALL IV (CKD) Sodium Chloride (NS 0.9%) 500 ML Clonidine HCl (CATAPRES) 0.3 MG BID PO (DC) Doxazosin Mesylate (CARDURA) 4 MG BEDTIME PO (DC ) Insulin Glargine (Lantus/Semglee) 50 UNIT BID [place] BQ (DC) Insulin Human Lispro (HUMALOG) 0 AC HS SUBQ (DC) Dextrose/Water (DEXTROSE 10% IN WATER) 125 ML DIR PRN IV (DC) Dextrose/Water (DEXTROSE 10% IN WATER) 250 ML DIR PRN IV (DC) Glucagon (GLUCAGON) 1 MG ASDIR PRN IM (DC) Status post: CABG, MVR, and ILAA Physical Exam General appearance: lethargic, obese ENT: moist mucosal membranes Neck: no JVD Cardiovascular: CV assessment: regular rate and rhythm Respiratory: On bipap Abdomen: obese Genitourinary: no flank pain, no urinary cathete r Upper extremity: UE assessment: normal temperature, no edema Lower extremity: LE assessment: edema 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 - op Psychiatry: unable to evaluate Results Findings/Data: Laboratory Tests 12/19 12/19 12/19 1256 1307 1446 Blood Gas Puncture Site Art Line [place] Art Line O2 Saturation (90 - 100 %) 94.0 93.5 ABG pH (7.35 - 7.45) 7.383 7.482 H ABG pCO2 (35.0 - 45 mmHg) 51.0 *H 37.2 ABG pO2 (80 - 100.0 mmHg) 72.1 L 62.0 L ABG PO2/FiO2 Ratio (mm/Hg) 144.20 155.00 ABG HCO3 (22.0 - 26.0 MMOL/L) 30.4 *H 27.9 H ABG Total CO2 32.0 29.1 ABG Base Excess (-4.0 - 4.0 MMOL/L) 5.3 H 4.3 H ABG Hematocrit (33.0 - 45.0 %) 27 L 26 L 26 L ABG Hemoglobin (11.0 - 15.0 G/DL) 9.2 L 8.9 L 8 .9 L Martin Test N/A N/A VBG pH (7.33 - 7.45) 7.334 VBG pCO2 (43 - 47 mmHg) 57.2 *H VBG pO2 (10 - 50 mmHG) 35.1 VBG HCO3 (22 - 27 MMOL/L) 30.5 H POC VBG Total CO2 32.2 VBG O2 Saturation (60 - 80 %) 61.8 VBG Base Excess (-4.0 - 4.0 MMOL/L) 4.6 H Sodium (134 - 147 MEQ/L) 144 143 144 Potassium (3.4 - 5.0 MEQ/L) 3.8 3.7 4.3 Chloride (100 - 108 MEQ/L) 105 105 106 Ionized Calcium (1.12 - 1.32 MMOL/L) 1.29 1.30 1.27 Lactic Acid (0.9 - 1.7 mmol/l) 2.0 H 1.9 H 1.6 Temperature (F) 98 97.7 O2 Delivery Device Adult Vent Adult Vent Vent Mode AC AC Vent Rate (/MIN) 18 24 FiO2 (%) 50 60 40 Tidal Volume (ml) 500 450 450 PEEP (cmH2O) 5 5 5 12/19 12/19 12/19 12/19 1650 1856 2006 2105 Blood Gas Puncture Site Art Line Art Line Art Line Art Li ne O2 Saturation (90 - 100 %) 97.0 99.6 93.0 93.8 ABG pH (7.35 - 7.45) 7.333 L 7.276 *L 7.283 *L 7.284 *L ABG pCO2 (35.0 - 45 mmHg) 56.4 *H 65.7 *H 68.1 *H 68.4 *H ABG pO2 (80 - 100.0 mmHg) 99.2 203.2 *H 78.8 L 82.3 ABG PO2/FiO2 Ratio (mm/Hg) 198.40 254.00 131.33 137.16 ABG HCO3 (22.0 - 26.0 MMOL/L) 29.9 *H 30.6 *H 3 2.1 *H 32.4 *H ABG Total CO2 31.6 32.6 34.2 34.4 ABG Base Excess (-4.0 - 4.0 MMOL/L) 4.0 3.8 5.5 H 5.7 H ABG Hematocrit (33.0 - 45.0 %) 24 L 24 L 23 L 2 3 L ABG Hemoglobin (11.0 - 15.0 G/DL) 8.3 L 8.2 L 7 .8 L 7.9 L Martin Test N/A Sodium (134 - 147 MEQ/L) 143 146 142 143 Potassium (3.4 - 5.0 MEQ/L) 4.4 4.4 4.5 4.6 Chloride (100 - 108 MEQ/L) 108 108 109 H 108 Ionized Calcium (1.12 - 1.32 MMOL/L) 1.23 1.29 1.31 1.33 H Lactic Acid (0.9 - 1.7 mmol/l) 0.9 0.5 L 0.8 L 0.7 L Temperature (F) 98.6 99 99 O2 Delivery Device BiPAP BiPAP Vent Mode AC CPAP/PS FiO2 (%) 50 80 60 60 PEEP (cmH2O) 5 578 5 Pressure Support (cmH2O) 10 14 12/19 12/20 12/20 12/20 7689 4122 7016 1203 Blood Gas Puncture Site Art Line Art Line Art Line Art Li ne O2 Saturation (90 - 100 %) 97.0 90.4 94.9 98.8 ABG pH (7.35 - 7.45) 7.301 L 7.278 *L 7.239 *L 7.291 *L ABG pCO2 (35.0 - 45 mmHg) 61.1 *H 66.1 *H 67.0 *H 59.2 *H ABG pO2 (80 - 100.0 mmHg) 103.3 H 70.0 L 90.6 1 37.8 H ABG PO2/FiO2 Ratio (mm/Hg) 172.16 116.66 90.60 137.80 ABG HCO3 (22.0 - 26.0 MMOL/L) 30.1 *H 30.8 *H 2 8.6 *H 28.8 *H ABG Total CO2 32.0 32.8 30.7 30.7 ABG Base Excess (-4.0 - 4.0 MMOL/L) 3.7 4.1 H 1 .2 2.1 ABG Hematocrit (33.0 - 45.0 %) 22 L 21 L 22 L 2 4 L ABG Hemoglobin (11.0 - 15.0 G/DL) 7.5 L 7.2 L 7 .6 L 8.3 L Martin Test N/A Sodium (134 - 147 MEQ/L) 143 142 141 142 Potassium (3.4 - 5.0 MEQ/L) 4.7 4.6 4.4 4.5 Chloride (100 - 108 MEQ/L) 108 108 110 H 108 Ionized Calcium (1.12 - 1.32 MMOL/L) 1.29 1.33 H 1.28 1.36 H Lactic Acid (0.9 - 1.7 mmol/l) 0.8 L 0.8 L 0.8 L 0.6 L Temperature (F) 98.8 98.9 97.3 Respiration Rate (/MIN) 26 O2 Delivery Device BiPAP BiPAP CPAP Vent Mode BiLevel Vent Rate (/MIN) 26 25 FiO2 (%) 60 60 100 100 Inspiratory Time 1 Tidal Volume (ml) 550 PEEP (cmH2O) 5 5 5 6 Pressure Support (cmH2O) 15 20 Laboratory Tests 12/19 12/19 12/19 12/19 12/19 1256 1257 1257 1307 1446 Chemistry Sodium (134 - 147 mEq/L) 147 Potassium (3.4 - 5.0 mEq/L) 3.6 Chloride (100 - 108 mEq/L) 109 H Carbon Dioxide (21 - 33 mEq/l) 28 Anion Gap (0 - 20) 14 BUN (7 - 18 mg/dL) 18 Creatinine (0.6 - 1.3 mg/dL) 0.8 POC Creatinine (0.6 - 1.0 mg/dL) 0.9 0.8 0.9 Glomerular Filtr Rate (70 - 80) 69.4 L Glucose (70 - 110 mg/dL) 153 H POC Glucose (mg/dL) (70 - 110 MG/DL) 144 H 141 H 126 H Lactic Acid (0.4 - 1.9 mmol/L) 2.2 H Calcium (8.0 - 10.5 mg/dL) 8.7 Magnesium (1.80 - 2.40 mg/dL) 2.45 H Total Bilirubin (0.0 - 1.0 mg/dL) 1.00 Direct Bilirubin (0.0 - 0.30 MG/DL) 0.40 H Indirect Bilirubin (MG/DL) 0.60 AST (15 - 37 IUnit/L) 44 H ALT (30 - 65 IUnit/L) 11 L Total Alk Phosphatase (20 - 125 47 IUnit/L) Total Protein (6.4 - 8.2 g/dL) 5.5 L Albumin (3.4 - 5.0 g/dL) 3.20 L 12/19 12/19 12/19 12/19 12/19 1450 1650 1856 2006 2104 Chemistry POC Creatinine (0.6 - 1.0 mg/dL) 0.9 0.9 1.1 H 1.2 H POC Glucose (mg/dL) (70 - 110 MG/DL) 125 H 159 H 171 H 163 H Lactic Acid (0.4 - 1.9 mmol/l) 1.8 12/19 12/19 12/20 12/20 2245 2251 0315 0319 Chemistry Sodium (134 - 147 mEq/L) 146 144 Potassium (3.4 - 5.0 mEq/L) 4.8 4.8 Chloride (100 - 108 mEq/L) 108 108 Carbon Dioxide (21 - 33 mEq/l) 29 28 Anion Gap (0 - 20) 14 12 BUN (7 - 18 mg/dL) 21 H 21 H Creatinine (0.6 - 1.3 mg/dL) 1.1 1.4 H POC Creatinine (0.6 - 1.0 mg/dL) 1.2 H 1.4 H Glomerular Filtr Rate (70 - 80) 48.0 L 36.4 L Glucose (70 - 110 mg/dL) 186 H 179 H POC Glucose (mg/dL) (70 - 110 MG/DL) 178 H 172 H Calcium (8.0 - 10.5 mg/dL) 9.1 9.4 Ionized Calcium Gigi (1.09 - 1.30 MMOL/L) 1.16 Phosphorus (2.5 - 4.9 MG/DL) 3.9 Magnesium (1.80 - 2.40 mg/dL) 2.45 H 2.32 Total Bilirubin (0.0 - 1.0 mg/dL) 0.60 Direct Bilirubin (0.0 - 0.30 MG/DL) 0.40 H Indirect Bilirubin (MG/DL) 0.20 AST (15 - 37 IUnit/L) 40 H ALT (30 - 65 IUnit/L) 8 L Total Alk Phosphatase (20 - 125 IUnit/L) 38 Total Protein (6.4 - 8.2 g/dL) 6.1 L Albumin (3.4 - 5.0 g/dL) 4.30 12/20 12/20 12/20 12/20 12/20 0815 0940 1006 1155 1203 Chemistry Sodium (134 - 147 mEq/L) 144 Potassium (3.4 - 5.0 mEq/L) 4.6 Chloride (100 - 108 mEq/L) 109 H Carbon Dioxide (21 - 33 mEq/l) 27 Anion Gap (0 - 20) 13 BUN (7 - 18 mg/dL) 26 H Creatinine (0.6 - 1.3 mg/dL) 1.7 H POC Creatinine (0.6 - 1.0 mg/dL) 1.8 H 2.0 H Glomerular Filtr Rate (70 - 80) 29.1 L Glucose (70 - 110 mg/dL) 182 H POC Glucose (70 - 110 MG/DL) 191 H 180 H POC Glucose (mg/dL) (70 - 110 MG/DL) 170 H 175 H Calcium (8.0 - 10.5 mg/dL) 9.2 Laboratory Tests 12/19 12/20 1257 0315 Coagulation INR (0.8 - 1.2) 1.5 H 1.3 H PTT ([place]) (25.0 - 39.5 Seconds) 24.4 L 25.0 PT Patient/Control Mix (9.3 - 12.9 SECONDS) 16. 7 H 14.9 H Fibrinogen (160 - 450 MG/DL) 278 Laboratory Tests 12/19 12/19 12/20 1257 2245 0315 Hematology WBC (4.5 - 11.0 x10 3/uL) 7.8 6.7 7.1 RBC (3.54 - 5.02 x10 6/uL) 2.37 L 2.00 L 2.03 L Hgb (11.0 - 15.0 g/dL) 9.3 L 7.5 L 7.2 L Hct (33.0 - 45.0 %) 26.5 L 22.4 L 22.6 L MCV (81.0 - 99.0 fL) 111.8 H 112.0 H 111.3 H MCH (27.0 - 33.0 pg) 39.2 H 37.5 H 35.5 H MCHC (33.0 - 37.0 g/dL) 35.1 33.5 31.9 L RDW (11.5 - 14.5 %) 15.8 H 16.1 H 16.0 H Plt Count (150 - 400 x10 3/uL) 76 L 62 L 65 L MPV (7.0 - 9.0 fL) 10.9 H 12.0 H 11.2 H Neut % (Auto) (56.0 - 77.0 %) 87.6 H 89.4 H 87. 7 H Lymph % (Auto) (14.0 - 32.0 %) 3.1 L 2.5 L 3.5 L Barron % (Auto) (4.8 - 9.0 %) 8.3 7.6 8.1 Eos % (Auto) (0.3 - 3.7 %) 0.1 L 0.0 L 0.0 L Baso % (Auto) (0.0 - 2.0 %) 0.1 0.1 0.1 Neut # (Auto) (2.0 - 7.6 x10 3/uL) 6.83 5.95 6. 25 Lymph # (Auto) (1.0 - 3.8 x10 3/uL) 0.24 L 0.17 L 0.25 L Barron # (Auto) (0.1 - 0.8 x10 3/uL) 0.65 0.51 0. 58 Eos # (Auto) (0.0 - 0.2 x10 3/uL) 0.01 0.00 0. 00 Baso # (Auto) (0.0 - 0.2 x10 3/uL) 0.01 0.01 0. 01 Abs Immat Gran (auto) (0.00 - 0.03 x10 3/uL) 0. 06 H 0.03 0.04 H Add Manual Diff NO NO NO Immature Gran % (0.0 - 2.0 %) 0.8 0.4 0.6 Nucleated RBC % (0 - 0 %) 0.0 0.0 0.0 Nucleated RBCs # (Man) (0.0 - 0.1 x10 3/uL) 0.0 0 0.00 0.00 Platelet Estimate (ADEQUATE THOUSAND) 76-95 Immature Plt Fraction (0.9 - 11.2 %) 6.5 8.3 Polychromasia 1+ Anisocytosis 1+ Macrocytosis 1+ Laboratory Tests 12/20 1155 Urines Urine Color (YEL/STRAW) YELLOW Urine Appearance (CLEAR) CLOUDY H Urine pH (5.0 - 7.0) 5.0 Ur Specific Lin[place] (1.005 - 1.030) 1.030 Urine Protein (NEGATIVE) 2+ H Urine Glucose (UA) (NEGATIVE) NEGATIVE Urine Ketones (NEGATIVE) 1+ H Urine Blood (NEGATIVE) 4+ H Urine Nitrite (NEGATIVE) NEGATIVE Urine Bilirubin (NEGATIVE) NEGATIVE Urine Urobilinogen (0.2 - 1.0 mg/dL) 0.2 Ur Leukocyte Esterase (NEGATIVE) 3+ H Ur Random Creatinine (mg/dL) 116.2 Ur Random Sodium (MEQ/L) < 10 Laboratory Tests 12/19 12/19 12/20 1257 2245 0315 Chemistry Magnesium (1.80 - 2.40 mg/dL) 2.45 H 2.45 H 2.3 2 Radiology data: Recent Impressions: RADIOLOGY - XR CHEST 1 V 12/19 1315 Report Impression - Status: SIGNED Entered: 12/19/2021 1516 IMPRESSION: 1. There are patchy opacities throughout the dahlia gs, which could represent atelectasis. 2. Increased interstitial markings, which could represent pulmonary edema. Impression By: [email or web address] Enrico Chong RADIOLOGY - XR CHEST 1 V 12/19 1336 Report Impression - Status: SIGNED Entered: 12/19/2021 1403 IMPRESSION: 1. No retained metallic structure resembling a s urgical needle in the chest or visualized upper abdomen. 2. Line and tube positions as described. 3. Satisfactory postoperative appearance of the mediastinum with no visible procedural complication. 4. Bilateral platelike atelectasis and central/b ibasilar pulmonary opacities, probably representing atelectasis and or secretions. Findings were conveyed to the Surgical team at 1 2:30 p.m. Impression By: [email or web address] - Jonathan vinson M.D. RADIOLOGY - XR CHEST 1 V 12/20 0656 Report Impression - Status: SIGNED Entered: 12/20/2021 0713 IMPRESSION: Stable radiographic appearance of the chest. Impression By: [email or web address] - Enrico Montero Results: labs reviewed, vital signs reviewed, vi kirk signs stable, cath.personally reviewed, rhythm personally rev' d, current med profile rev'd Telemetry Interpretation: 100%Vpaced Treatment Prophylaxis Treatment Prophylaxis Drain(s)/tube(s): Drain(s)/tube(s): chest (x3) Pressors and Inotropes: dopamine (3mcg/k g/min ), milrinone (0.125mcg/kg/miin), vasopressin (0.03units/min) Diagnosis, Assessment Plan Consultants: cardiology, cardiovascular surgery Plan discussed with: patient, nurse Free Text DxA P Notes Free Text DxA P Notes: Ms Giles is a 76 y/o Femal w / PMHx: CAD, HLD, T2DM, RONA (CPAP at home), smoker, Crohn's disease, AF s/p ablation (on Xar deng), s/p PPM and lymphedema; patient is from [place]. Dr. Fortune is consulted f or CAD. Patient experienced intermittent nonradiated chest tightness . She reports sob x 1 year, was placed on diuretics; however her sob is not res olved. LHC showed 70% stenosis of left proximal LAD, diffuse LAD, distal LAD 80 % stenosis, constrictive pericarditis. CTS was consulted. - CAD s/p CABG, MVR, and ILAA immediate post-op care per CTS and critical car e - Chr AF s/p PPM/ablation. Rate controlled, pace d rhythm. had ILAA during bypass - HTN. BP marginal. monitor off BP meds On vasopressin. - HLD. On statins. - Crohn's disease. Per IM. Electronically Signed by Jayna Gonzales NP on at 1230 Electronically Signed by Sandy Hawk MD on at 1729 RPT #:[id number] END OF REPORT 2021-12-20 08:37:00-00:[address] [facility] ([facility]) Critical Care Progress Note REPORT#:[id number] REPORT STATUS: Signed DATE:12/20/21 TIME: 08 PATIENT: SAÚL GILES UNIT #: [id number] ROOM/BED: [place] [id number] : 43 AGE: 76 SEX: F ATTEND: Leah More MD ADM AUTHOR: Jd Alva MD * ALL edits or amendments must be made on the [employer]/computer document * Subjective Chief complaint: CABG/MVR HPI: 76-year-old morbidly obese f emale with history of HTN, HL, IDDM, smoking, RONA on CPAP and home O2 as needed, macular degeneration , Crohn's disease on immunosuppressant medication s, and chronic Afib s/p ablation and PPM (on Xarelto ), who was admitted recently with heart failure symptoms. Patient underwent elective cardiac cath that s howed severe multivessel coronary artery disease not suitable for percutaneous intervention. 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 She went for surgical revascularization today and preop JORDEN revealed severe mitral regurgitation. After discussing new findings with family, patient underwent MVR (31 M agna valve), CABG x 1 (ROBERTS-LAD), ILAA and pericardectomy on 12/19/2021. Has EF of 45%. Crystalloid 1 L, urine output 700, Cell Saver 700. She is a-paced at [facility] [employer] [facility] [employer]. Surgery went well and patient was transferred to CVICU pos top in a stable surgical condition. She is currently intubated on 2 mics of epine phrine, 2 mics of Levophed and insulin drip. CI 3.0, SvO2 in 60%s, CVP 15 and PAP in 60s. Comments: Extubated yesterday postop Required BiPAP all night for hypoxia/hypercapnia On vasopressin .02 and milrinone 0.25 yumiko low UOP 395 overnight mCT 130, LpCT 80, RpCT 95 (more sanguinous) PAPs in 57, SBP 104, CI 2.9, SvO2 63%, CVP 15 On insulin drip Objective General VS/I O Last Documented: Result Date Time Pulse Ox 96 12/20 641 B/P 100/35 12/20 641 B/P Mean 49 12/20 641 Temp 97.3 12/20 641 Pulse 73 12/20 641 Resp 27 12/20 641 FiO2 65 12/20 0416 O2 Delivery BiPAP 12/20 1999 O2 Flow Rate 10 12/20 1943 24 hour I O ending at 0700: 12/20 1900 Intake Total 1563.00 1802.00 Output Total 635 540 Balance 928.00 1262.00 Intake, IV 1443.00 1802.00 Intake, Oral 120 Output, Chest 290 225 Tube Drainage Output, Urine 345 315 PATIENT WEIGHT: Weight (lb): 264 Weight (oz): 12.4 Weight (kg): 120.100 Medications: Active Meds + DC'd Last 24 Hrs Cyanocobalamin (Vitamin B-12 500 mcg tab) 500 MC G DAILY PO Ferrous Sulfate (FERROUS SULFATE) 325 MG DAILY PO Bisacodyl (DULCOLAX) 10 MG ONCE PRN RECTAL Magnesium Hydroxide (MILK OF MAGNESIA) 30 ML ONC E PRN PO Clopidogrel Bisulfate (Plavix) 75 MG DAILY PO Polyethylene Glycol (MIRALAX) 17 GM DAILY PO Dopamine HCl/Dextrose (DOPamine 400MG/D5W 250ML) 250 ML ASDIR IV Pantoprazole (PROTONIX) 40 MG DAILY@0600 PO Furosemide (LASIX 20MG INJ) 10 MG ONCE ONE IV (D C) Vancomycin HCl (VANCOMYCIN HCL) 1,000 MG Q12H IV Sodium Chloride (SODIUM CHLORIDE 0.9%) 250 ML Docusate Sodium (COLACE) 100 MG BID PO Metoprolol Tartrate (LOPRESSOR) 12.5 MG Q12HR PO Sennosides (Senna Lax 8.6 MG TABLET) 17.2 MG BED TIME PO Milrinone Lactate/Dextrose (MILRINONE 20MG/D5W 1 00ML) 100 ML ASDIR IV ( CKD) Vasopressin (VASOSTRICT 20 Unit/NS 100ML) 100 ML ASDIR IV (CKD) Aspirin (ASPIRIN) 81 MG DAILY PO Gabapentin (NEURONTIN) 200 MG BID 9A 5P PO Fentanyl Citrate (SUBLIMAZE) 25 MCG ONCE ONE IV (DC) Amiodarone HCl (CORDARONE) 200 MG TID PO Furosemide (LASIX 20MG INJ) 10 MG ONCE ONE IV (D C) Tramadol HCl (ULTRAM) 25 MG Q4H PRN PRN PO Tramadol HCl (ULTRAM) 50 MG Q4H PRN PRN PO Mupirocin (BACTROBAN 2% 22 GM OINTMENT) 1 APPLIC BID NASAL Acetaminophen (TYLENOL) 650 MG Q4H PRN PRN PO Acetaminophen (TYLENOL) 650 MG Q4H PRN PRN RECTA L Albumin Human (ALBUMINAR 25%) 25 GM ASDIR PRN IV Calcium Chloride (CALCIUM CHLORIDE) 1 GM ASDIR P RN IV Chlorhexidine Gluconate (PERIDEX) 15 ML Q2H MM ( CKD) Dextrose/Water (DEXTROSE 10% IN WATER) 125 ML DIR PRN IV (CKD) Dextrose/Water (DEXTROSE 10% IN WATER) 250 ML DIR PRN IV (CKD) Epinephrine (ADRENALIN CHLORIDE) 5 MG ASDIR IV Dextrose/Water (DEXTROSE 5% WATER) 245 ML Glucagon (GLUCAGON) 1 MG ASDIR PRN IM Insulin Human Regular (HumuLIN R) 100 UNIT ASDIR IV (CKD) Sodium Chloride (SODIUM CHLORIDE 0.9%) 99 ML Magnesium Sulfate (MAGNESIUM SULFATE 4GM/SWFI 10 0ML) 100 ML ASDIR PRN IV Magnesium Sulfate (MAGNESIUM SULFATE 2GM/SWFI 50 ML) 50 ML ASDIR PRN IV Magnesium Sulfate/Dextrose (MAGNESIUM SULFATE 1G M/D5W 100ML) 100 ML ASDIR PRN IV Nitroglycerin/Dextrose (NITROGLYCERIN 50,000MCG/ D5W 250ML) 250 ML ASDIR IV Norepinephrine Bitartrate (NOREPINEPHRINE 8 MG/N S 250 ML) 250 ML TITRATE IV Oxycodone HCl (ROXICODONE) 5 MG Q4H PRN PRN PO ( DC) Oxycodone HCl (ROXICODONE) 10 MG Q4H PRN PRN PO (DC) Potassium Chloride (KCL 20MEQ/SWFI 100ML) 100 ML ASDIR PRN IV Sodium Bicarbonate (SODIUM BICARBONATE) 50 MEQ A SDIR PRN IV Sodium Chloride (SODIUM CHLORIDE 0.9%) 1,000 ML .Q20H IV Sodium Chloride (SODIUM CHLORIDE 0.9%) 250 ML Q2 4H IV Protamine Sulfate (PROTAMINE SULFATE) 0 .STK-MED ONE IV (DC) Vancomycin HCl (VANCOMYCIN HCL) 1,750 MG PREOP O NCALL IV (DC) Sodium Chloride (SODIUM CHLORIDE 0.9%) 500 ML Verapamil HCl (ISOPTIN) 16.6 MG PREOP ONCALL IV (DC) Heparin Sodium (Porcine) (HEPARIN SODIUM) 1,660 UNIT Sodium Bicarbonate (SODIUM BICARBONATE) 0.7 ML Nitroglycerin/Dextrose (NITROGLYCERIN 50MG/D5W 250ML) 8.3 MG Lactated Ringer's (LACTATED RINGERS) 949.5 ML Atorvastatin Calcium (LIPITOR) 40 MG 2100 PO Ceftriaxone Sodium (ROCEPHIN 1000MG VIAL) 1,000 MG Q24H IV Sodium Chloride (SODIUM CHLORIDE) 10 ML Acetaminophen (TYLENOL EXTRA STRENGTH) 1,000 MG PREOP ONCALL PO (DC) Gabapentin (NEURONTIN) 200 MG PREOP ONCALL PO (D C) Ondansetron HCl (ZOFRAN) 4 MG Q6H PRN PRN IV Amlodipine Besylate (NORVASC) 5 MG DAILY PO Acetaminophen (TYLENOL EXTRA STRENGTH) 1,000 MG PREOP ONCALL PO (DC) Gabapentin (NEURONTIN) 200 MG PREOP ONCALL PO (D C) Pantoprazole (PROTONIX) 40 MG DAILY@0600 PO (DC) Vancomycin HCl (VANCOMYCIN HCL) 1,750 MG PREOP ONCALL IV (CKD) Sodium Chloride (NS 0.9%) 500 ML Clonidine HCl (CATAPRES) 0.3 MG BID PO (DC) Doxazosin Mesylate (CARDURA) 4 MG BEDTIME PO (D C) Insulin Glargine (Lantus/Semglee) 50 UNIT BID [place] BQ (DC) Insulin Human Lispro (HUMALOG) 0 AC HS SUBQ (DC) Dextrose/Water (DEXTROSE 10% IN WATER) 125 ML DIR PRN IV (DC) Dextrose/Water (DEXTROSE 10% IN WATER) 250 ML DIR PRN IV (DC) Glucagon (GLUCAGON) 1 MG ASDIR PRN IM (DC) Results Findings/data: Laboratory Tests 12/20 12/19 12/19 12/19 1194 3051 3423 2006 Blood Gas Puncture Site Art Line Art Line Art Line Art Li ne O2 Saturation (90 - 100 %) 90.4 97.0 93.8 93.0 ABG pH (7.35 - 7.45) 7.278 *L 7.301 L 7.284 *L 7.283 *L ABG pCO2 (35.0 - 45 mmHg) 66.1 *H 61.1 *H 68.4 *H 68.1 *H ABG pO2 (80 - 100.0 mmHg) 70.0 L 103.3 H 82.3 7 8.8 L ABG PO2/FiO2 Ratio (mm/Hg) 116.66 172.16 137.16 131.33 ABG HCO3 (22.0 - 26.0 MMOL/L) 30.8 *H 30.1 *H 3 2.4 *H 32.1 *H ABG Total CO2 32.8 32.0 34.4 34.2 ABG Base Excess (-4.0 - 4.0 MMOL/L) 4.1 H 3.7 5 .7 H 5.5 H ABG Hematocrit (33.0 - 45.0 %) 21 L 22 L 23 L 2 3 L ABG Hemoglobin (11.0 - 15.0 G/DL) 7.2 L 7.5 L 7 .9 L 7.8 L Sodium (134 - 147 MEQ/L) 142 143 143 142 Potassium (3.4 - 5.0 MEQ/L) 4.6 4.7 4.6 4.5 Chloride (100 - 108 MEQ/L) 108 108 108 109 H Ionized Calcium (1.12 - 1.32 MMOL/L) 1.33 H 1.2 9 1.33 H 1.31 Lactic Acid (0.9 - 1.7 mmol/l) 0.8 L 0.8 L 0.7 L 0.8 L Temperature (F) 98.9 98.8 99 99 O2 Delivery Device BiPAP BiPAP FiO2 (%) 60 60 60 60 PEEP (cmH2O) 5 5 5 578 12/19 12/19 12/19 12/19 1856 1650 1446 1307 Blood Gas Puncture Site Art Line Art Line Art Line Tj Young anz O2 Saturation (90 - 100 %) 99.6 97.0 93.5 ABG pH (7.35 - 7.45) 7.276 *L 7.333 L 7.482 H ABG pCO2 (35.0 - 45 mmHg) 65.7 *H 56.4 *H 37.2 ABG pO2 (80 - 100.0 mmHg) 203.2 *H 99.2 62.0 L ABG PO2/FiO2 Ratio (mm/Hg) 254.00 198.40 155.00 ABG HCO3 (22.0 - 26.0 MMOL/L) 30.6 *H 29.9 *H 27.9 H ABG Total CO2 32.6 31.6 29.1 ABG Base Excess (-4.0 - 4.0 MMOL/L) 3.8 4.0 4.3 H ABG Hematocrit (33.0 - 45.0 %) 24 L 24 L 26 L 26 L ABG Hemoglobin (11.0 - 15.0 G/DL) 8.2 L 8.3 L 8 .9 L 8.9 L Martin Test N/A N/A VBG pH (7.33 - 7.45) 7.334 VBG pCO2 (43 - 47 mmHg) 57.2 *H VBG pO2 (10 - 50 mmHG) 35.1 VBG HCO3 (22 - 27 MMOL/L) 30.5 H POC VBG Total CO2 32.2 VBG O2 Saturation (60 - 80 %) 61.8 VBG Base Excess (-4.0 - 4.0 MMOL/L) 4.6 H Sodium (134 - 147 MEQ/L) 146 143 144 143 Potassium (3.4 - 5.0 MEQ/L) 4.4 4.4 4.3 3.7 Chloride (100 - 108 MEQ/L) 108 108 106 105 Ionized Calcium (1.12 - 1.32 1.29 1.23 1.27 1.3 0 MMOL/L) Lactic Acid (0.9 - 1.7 mmol/l) 0.5 L 0.9 1.6 1. 9 H Temperature (F) 98.6 97.7 O2 Delivery Device BiPAP Adult Vent Vent Mode CPAP/PS AC AC Vent Rate (/MIN) 24 FiO2 (%) 80 50 40 60 Tidal Volume (ml) 450 450 PEEP (cmH2O) 5 5 5 Pressure Support (cmH2O) 14 10 12/19 12/19 12/19 12/19 1256 1123 1049 1020 Blood Gas Puncture Site Art Line O2 Saturation (90 - 100 %) 94.0 99.9 99.8 99.9 ABG pH (7.35 - 7.45) 7.383 7.472 H 7.467 H 7.5 50 *H ABG pCO2 (35.0 - 45 mmHg) 51.0 *H 35.8 42.3 35. 2 ABG pO2 (80 - 100.0 mmHg) 72.1 L 303.1 *H 226.6 *H 278.5 *H ABG PO2/FiO2 Ratio (mm/Hg) 144.20 ABG HCO3 (22.0 - 26.0 MMOL/L) 30.4 *H 26.2 H 30 .6 *H 30.8 *H ABG Total CO2 32.0 27.2 31.9 31.8 ABG Base Excess (-4.0 - 4.0 MMOL/L) 5.3 H 2.5 6 .2 H 7.9 H ABG Hematocrit (33.0 - 45.0 %) 27 L 26 L 25 L 27 L ABG Hemoglobin (11.0 - 15.0 G/DL) 9.2 L 9.0 L 8 .5 L 9.1 L Martin Test N/A Sodium (134 - 147 MEQ/L) 144 145 143 143 Potassium (3.4 - 5.0 MEQ/L) 3.8 4.5 5.2 H 5.3 H Chloride (100 - 108 MEQ/L) 105 106 104 104 Ionized Calcium (1.12 - 1.32 MMOL/L) 1.29 1.33 H 1.18 1.15 Lactic Acid (0.9 - 1.7 mmol/l) 2.0 H 2.3 H 1.4 1.1 Temperature (F) 98 O2 Delivery Device Adult Vent Vent Mode AC Vent Rate (/MIN) 18 FiO2 (%) 50 Tidal Volume (ml) 500 PEEP (cmH2O) 5 12/19 12/19 3305 6409 Blood Gas O2 Saturation (90 - 100 %) 100.0 100.0 ABG pH (7.35 - 7.45) 7.532 *H 7.473 H ABG pCO2 (35.0 - 45 mmHg) 36.8 41.7 ABG pO2 (80 - 100.0 mmHg) 427.8 *H 447.6 *H ABG HCO3 (22.0 - 26.0 MMOL/L) 30.8 *H 30.6 *H ABG Total CO2 32.0 31.9 ABG Base Excess (-4.0 - 4.0 MMOL/L) 7.7 H 6.4 H ABG Hematocrit (33.0 - 45.0 %) 27 L 27 L ABG Hemoglobin (11.0 - 15.0 G/DL) 9.2 L 9.2 L Sodium (134 - 147 MEQ/L) 143 143 Potassium (3.4 - 5.0 MEQ/L) 4.5 4.9 Chloride (100 - 108 MEQ/L) 103 102 Ionized Calcium (1.12 - 1.32 MMOL/L) 1.17 1.13 Lactic Acid (0.9 - 1.7 mmol/l) 1.3 1.2 Laboratory Tests 12/20 12/20 12/19 12/19 12/19 0319 0315 2251 2245 2105 Chemistry Sodium (134 - 147 mEq/L) 144 146 Potassium (3.4 - 5.0 mEq/L) 4.8 4.8 Chloride (100 - 108 mEq/L) 108 108 Carbon Dioxide (21 - 33 mEq/l) 28 29 Anion Gap (0 - 20) 12 14 BUN (7 - 18 mg/dL) 21 H 21 H Creatinine (0.6 - 1.3 mg/dL) 1.4 H 1.1 POC Creatinine (0.6 - 1.0 mg/dL) 1.4 H 1.2 H 1. 2 H Glomerular Filtr Rate (70 - 80) 36.4 L 48.0 L Glucose (70 - 110 mg/dL) 179 H 186 H POC Glucose (mg/dL) (70 - 110 MG/DL) 172 H 178 H 163 H Calcium (8.0 - 10.5 mg/dL) 9.4 9.1 Ionized Calcium Gigi (1.09 - 1.30 MMOL/L) 1.16 Phosphorus (2.5 - 4.9 MG/DL) 3.9 Magnesium (1.80 - 2.40 mg/dL) 2.32 2.45 H Total Bilirubin (0.0 - 1.0 mg/dL) 0.60 Direct Bilirubin (0.0 - 0.30 MG/DL) 0.40 H Indirect Bilirubin (MG/DL) 0.20 AST (15 - 37 IUnit/L) 40 H ALT (30 - 65 IUnit/L) 8 L Total Alk Phosphatase (20 - 125 IUnit/L) 38 Total Protein (6.4 - 8.2 g/dL) 6.1 L Albumin (3.4 - 5.0 g/dL) 4.30 12/19 1856 1650 1450 1446 Chemistry POC Creatinine (0.6 - 1.0 mg/dL) 1.1 H 0.9 0.9 0.9 POC Glucose (mg/dL) (70 - 110 MG/DL) 171 H 159 H 125 H 126 H Lactic Acid (0.4 - 1.9 mmol/l) 1.8 12/19 12/19 12/19 12/19 12/19 1307 1257 1257 1256 1123 Chemistry Sodium (134 - 147 mEq/L) 147 Potassium (3.4 - 5.0 mEq/L) 3.6 Chloride (100 - 108 mEq/L) 109 H Carbon Dioxide (21 - 33 mEq/l) 28 Anion Gap (0 - 20) 14 BUN (7 - 18 mg/dL) 18 Creatinine (0.6 - 1.3 mg/dL) 0.8 POC Creatinine (0.6 - 1.0 mg/dL) 0.8 0.9 0.8 Glomerular Filtr Rate (70 - 80) 69.4 L Glucose (70 - 110 mg/dL) 153 H POC Glucose (mg/dL) (70 - 110 MG/DL) 141 H 144 H 168 H Lactic Acid (0.4 - 1.9 mmol/L) 2.2 H Calcium (8.0 - 10.5 mg/dL) 8.7 Magnesium (1.80 - 2.40 mg/dL) 2.45 H Total Bilirubin (0.0 - 1.0 mg/dL) 1.00 Direct Bilirubin (0.0 - 0.30 MG/DL) 0.40 H Indirect Bilirubin (MG/DL) 0.60 AST (15 - 37 IUnit/L) 44 H ALT (30 - 65 IUnit/L) 11 L Total Alk Phosphatase (20 - 125 IUnit/L) 47 Total Protein (6.4 - 8.2 g/dL) 5.5 L Albumin (3.4 - 5.0 g/dL) 3.20 L 12/19 12/19 12/19 12/19 1049 1020 0945 0915 Chemistry POC Creatinine (0.6 - 1.0 mg/dL) 0.9 0.9 1.0 0. 9 POC Glucose (mg/dL) (70 - 110 MG/DL) 180 H 197 H 193 H 208 H Laboratory Tests 12/20 1257 1125 1051 1027 Coagulation INR (0.8 - 1.2) 1.3 H 1.5 H PTT (Faulkner) (25.0 - 39.5 Seconds) 25.0 24.4 L PT Patient/Control Mix (9.3 - 12.9 14.9 H 16.7 H SECONDS) Activated Coag Time (74 - 137 SEC) 115 491 H 51 5 H Fibrinogen (160 - 450 MG/DL) 278 12/19 12/19 12/19 0947 0918 0840 Coagulation Activated Coag Time (74 - 137 SEC) 642 H 746 H 740 H Laboratory Tests 12/20 2245 1257 Hematology WBC (4.5 - 11.0 x10 3/uL) 7.1 6.7 7.8 RBC (3.54 - 5.02 x10 6/uL) 2.03 L 2.00 L 2.37 L Hgb (11.0 - 15.0 g/dL) 7.2 L 7.5 L 9.3 L Hct (33.0 - 45.0 %) 22.6 L 22.4 L 26.5 L MCV (81.0 - 99.0 fL) 111.3 H 112.0 H 111.8 H MCH (27.0 - 33.0 pg) 35.5 H 37.5 H 39.2 H MCHC (33.0 - 37.0 g/dL) 31.9 L 33.5 35.1 RDW (11.5 - 14.5 %) 16.0 H 16.1 H 15.8 H Plt Count (150 - 400 x10 3/uL) 65 L 62 L 76 L MPV (7.0 - 9.0 fL) 11.2 H 12.0 H 10.9 H Neut % (Auto) (56.0 - 77.0 %) 87.7 H 89.4 H 87. 6 H Lymph % (Auto) (14.0 - 32.0 %) 3.5 L 2.5 L 3.1 L Barron % (Auto) (4.8 - 9.0 %) 8.1 7.6 8.3 Eos % (Auto) (0.3 - 3.7 %) 0.0 L 0.0 L 0.1 L Baso % (Auto) (0.0 - 2.0 %) 0.1 0.1 0.1 Neut # (Auto) (2.0 - 7.6 x10 3/uL) 6.25 5.95 6. 83 Lymph # (Auto) (1.0 - 3.8 x10 3/uL) 0.25 L 0.17 L 0.24 L Barron # (Auto) (0.1 - 0.8 x10 3/uL) 0.58 0.51 0. 65 Eos # (Auto) (0.0 - 0.2 x10 3/uL) 0.00 0.00 0.0 1 Baso # (Auto) (0.0 - 0.2 x10 3/uL) 0.01 0.01 0 .01 Abs Immat Gran (auto) (0.00 - 0.03 x10 3/uL) 0. 04 H 0.03 0.06 H Add Manual Diff NO NO NO Immature Gran % (0.0 - 2.0 %) 0.6 0.4 0.8 Nucleated RBC % (0 - 0 %) 0.0 0.0 0.0 Nucleated RBCs # (Man) (0.0 - 0.1 x10 3/uL) 0.0 0 0.00 0.00 Platelet Estimate (ADEQUATE THOUSAND) 76-95 Immature Plt Fraction (0.9 - 11.2 %) 8.3 6.5 Polychromasia 1+ Anisocytosis 1+ Macrocytosis 1+ Laboratory Tests 12/20/21 0315: [Embedded Image Not Available] 12/19/21 2245: [Embedded Image Not Available] 12/19/21 1257: [Embedded Image Not Available] Microbiology: 12/18 1830 URINE: Urine Culture - RES 12/18 1436 NASAL: MRSA DNA Surveillance Screen - CAN Cancelled: Cancelled via OE: Order Cancelled by 12/18 2003 NASAL: MSSA Surveillance Screen - COM P 12/18 2003 NASAL: MRSA DNA Surveillance Screen - COMP Radiology data Recent Impressions: RADIOLOGY - XR CHEST 1 V 12/19 1315 Report Impression - Status: SIGNED Entered: 12/19/2021 9136 IMPRESSION: 1. There are patchy opacities throughout the dahlia gs, which could represent atelectasis. 2. Increased interstitial markings, which could represent pulmonary edema. Impression By: [email or web address] - Enrico Wang RADIOLOGY - XR CHEST 1 V 12/19 1336 Report Impression - Status: SIGNED Entered: 12/19/2021 1403 IMPRESSION: 1. No retained metallic structure resembling a s urgical needle in the chest or visualized upper abdomen. 2. Line and tube positions as described. 3. Satisfactory postoperative appearance of the mediastinum with no visible procedural complication. 4. Bilateral platelike atelectasis and central/b ibasilar pulmonary opacities, probably representing atelectasis and or secretions. Findings were conveyed to the Surgical team at 1 2:30 p.m. Impression By: [email or web address] - Jonathan vinson M.D. RADIOLOGY - XR CHEST 1 V 12/20 0656 Report Impression - Status: SIGNED Entered: 12/20/2021 0713 IMPRESSION: Stable radiographic appearance of the chest. Impression By: [email or web address] - Enrico Montero Free Text Obj Notes Free Text Obj Notes: General appearance: elderly female in no acute d istress HEENT: atraumatic, normocephalic, moist mucosal membranes Neck: full range of motion, supple/no meningismu s Cardiovascular: S1S2 regular rate and rhythm, a- paced Respiratory: symmetric expansion, no acute respi ratory distress Abdomen: soft, obese, non-tender, no distention, no guarding Genitourinary: [place] with clear urine Extremities: pedal pulses palpable, moves all, n o clubbing, no cyanosis, LE edema Musculoskeletal: normal inspection, no muscle sp asm 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 S/P MVR (mitral valve replacement) 2. S/P CABG x 1 3. Postoperative pulmonary dysfunction after ca rdiac surgery 4. Severe mitral regurgitation 5. CAD (coronary artery disease) 6. CKD (chronic kidney disease) 7. Immunosuppressed status 8. RONA on CPAP 9. Chronic a-fib 10. Crohn disease Free text A P: 76-year-old morbidly obese f emale with history of HTN, HL, IDDM, smoking, RONA on CPAP and home O2 as needed, macular degeneration , Crohn's disease on immunosuppressant medication s, and chronic Afib s/p ablation and PPM (on Xarelto ), who was admitted recently with heart failure symptoms. Patient underwent elective cardiac cath that s howed severe multivessel coronary artery disease not suitable for percutaneous intervention. 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 She went for surgical revascularization today and preop JORDEN revealed severe mitral regurgitation. After discussing new findings with family, patient underwent MVR (31 M agna valve), CABG x 1 (ROBERTS-LAD), ILAA and pericardectomy on 12/19/2021. Has EF of 45%. Crystalloid 1 L, urine output 700, Cell Saver 700. She is a-paced at [facility] [employer]. Surgery went well and patient was transferred to CVICU pos top in a stable surgical condition. She is currently intubated on 2 mics of epine phrine, 2 mics of Levophed and insulin drip. CI 3.0, SvO2 in 60%s, CVP 15 and PAP in 60s. Neuro: appears intact, keep off sedation, multim odal pain control, minimize narcotics use Respiratory: sats well on minimal vent s ettings, CPAP trial as tolerated, plan for extubation, may need bipap, obtain serial AB Gs, CXR reviewed Cardiovascular: Hemodynamically unstable on vaso pressors, attempt to wean, monitor PAP and hemodynamic parameters, keep CTs to suction Renal: strict I/Os, monitor Cr and electrolytes, mild lactic acidosis, trend LA, resuscitate as needed, home diuretics on hold GI: bedside swallow then ora l diet after extubation, keep NPO if required bipap, bowel regimen ID: trend WBC, continue shirley op antibiotics, low threshold for infection work-up, treated for UTI Hem: acute postop anemia and thrombocytopenia, m onitor Hgb and CTs output, no evidence of active bleed, tr ansfuse as needed, holding off on immunosuppressive meds Endo: Blood glucose control with insulin gtt per protocol Misc: PTOT consult, DVT and GI ppx with DAPT and PPI (home med) 12/20 Appears neuro intact, multimodal pain co ntrol, monitor for CO2 narcosis, avoid narcotics Extubated successfully, required BiPAP f or hypoxia and hypercapnia, attempt to wean, obtain serial ABGs, CXR reviewed, has pulm onary edema Improved hemodynamics, off L evophed/epinephrine, continue vasopressin, inotropes with milrinone, monitor hemodynamic parameters a nd wean per CT surgery Mild MARCELLO, Cr uptrending with marginal urine outp ut, started dopamine drip Keep NPO for now while on BiPAP, bowel regimen, monitor LFTs No fevers or leukocytosis, given periop antibiot ics, on antibiotics for UTI Hemoglobin and platelets rui nding down, no evidence of active bleed, monitor CTs output Blood glucose control with insulin drip PT/OT and out of bed to chair if tolerated DVT and GI prophylaxis with DAPT and PPI Patient was seen during rounds with CT s negarery team, Dr. Romero, and he is in agreement with the plan of care Consultants: cardiology, cardiovascular surgery Plan discussed with: consultants, nurse, interdi sc care team, pharmacy/ pharmacist Critical care time: Minutes: 41 Electronically Signed by Jd Alva MD on 12/13 05/06 at 0621 [facility] #:[id number] END OF REPORT 2021-12-20 05:04:00-00:00 [id number] [place] [id number] PATIENT NAME: SAÚL GILES ADMIT DATE: 12/17/21 ACCOUNT NO: [id number] ROOM NO: [facility] AGE: 76 REPORT TYPE: eELECTROCARDIOGRAM REPORT SEX: F ADMITTING PHYSICIAN:Jeffry More MD ATTENDING PHYSICIAN:Jeffry More MD Order: [id number] Test Reason : S/P CAB/MVR Test Date/Time Stamp: Sat Dec 20 2021 05:04:33 Blood Pressure : / mmHG Vent. Rate : 073 BPM Atrial Rate : 082 BPM P-R Int : 000 ms QRS Dur : 178 ms QT Int : 472 ms P-R-T Axes : 000 127 -07 degree s QTc Int : 519 ms Suspect unspecified pacemaker failure Ventricular-paced rhythm Abnormal ECG When compared with ECG of 12-DEC-2021 12:29, Significant changes have occurred Confirmed by MD CARINE, SANDY ([id number]) on 022 9:38:00 PM Referred By: Colt Vail Confirmed by:SANDY PARRY MD Electronically Signed by Sandy Hawk MD on 1 at 2138 PATIENT NAME: SAÚL GILES 332 2021-12-19 15:14:00-00:00 [id number] [place] [id number] PATIENT NAME: SAÚL GILES ADMIT DATE: 12/17/21 ACCOUNT NO: [id number] ROOM NO: [facility] AGE: 76 REPORT TYPE: OPERATIVE REPORT SEX: F ADMITTING PHYSICIAN:Jeffry More MD ATTENDING PHYSICIAN:Jeffry More MD OPERATION DATE: PREOPERATIVE DIAGNOSES: 1. Constrictive pericarditis. 2. Coronary artery disease. POSTOPERATIVE DIAGNOSES: 1. Constrictive pericarditis. 2. Coronary artery disease. 3. Severe mitral regurgitation. OPERATIONS: 1. Mitral valve replacement (31 Magna valve). 2. Coronary artery bypass graft surgery x1 (ROBERTS to LAD). 3. Isolation of left atrial appendage. 4. Pericardiectomy. SURGEON: René Romero MD [employer] SALES REPRESENTATIVE: Dione Ross ANESTHESIOLOGIST: Dr. Avalos. ANESTHESIA: General endotracheal anesthesia. ESTIMATED BLOOD LOSS: 100 mL. INDICATIONS: Ms. Giles is a 76-year-old female, who has been experiencing worsening shortness of breath. Workup revealed c onstrictive pericarditis. Coronary angiogram showed single vessel coronary artery disease. Echo showed moderate mitral regurgitation. After due preop c ounseling, she was brought to the operating room today for coronary artery byp ass graft surgery and pericardiectomy. FINDINGS: 1. Preoperative JORDEN showed severe mitral regurgi tation. I discussed with the patient's family the need for mitral valve repla cement. The patient's family agreed to proceed with the m itral valve replacement and hence that procedure was performed after explaining to the family the pro s and cons of tissue versus mechanical valve and complications associated wi th mitral valve replacement. 2. Osteoporotic sternum. 3. Good quality ROBERTS measuring 2 mm in size with excellent flow. 4. Thickened pericardium with intrapericardial a dhesions. All the adhesions PATIENT NAME: SAÚL GILES 332 were taken down and the pericardium was excised from phrenic to phrenic. 4. Dilated left atrium with patchy calcification of the left atrium. 5. The anterior leaflet appeared normal, but there was significant restriction of the posterior mitral leaflet, leading to see re mitral regurgitation. 6. The annulus was sized to 31 Magna Ease valve. 7. JORDEN at the end of case did not show any evide nce of paravalvular leak. DESCRIPTION OF PROCEDURE: Ms. Giles was identified in the preoperative holding area and brought to the oper ating room and placed supine on the operating table. After induction of general endotracheal anesthe lv, [place] catheter, radial arterial line, [place] catheter and antibiotic s were placed. The patient's anterior torso and both lower extremities were p repped and draped in standard surgical fashion. Median sternotomy was performe d. The left internal mammary artery was harvested. Pericardium was opened anjel gitudinally. All the intrapericardial adhesions were taken down. The pericardium was excised from phrenic to phrenic. Cardiopu lmonary bypass was instituted using ascending aorta and bicaval cannulation with 24-metal tip cannul a in the SVC and 32-bull nose cannula in the IVC. The patient was cooled to 32 degrees centigrade. Surgical field was flooded with carbon dioxide all throug hout the duration of cardiopulmonary bypass. Cros s clamp was applied and the heart was arrested with 1.5 liters of antegrade and retrograde cold bloo d cardioplegia. Cardioplegia was repeated at the interval of 10 minutes, all throughout duration of the crossclamp. We began by exploring the LAD. This was a good quality artery, measuring 2 mm in size. Arteriotomy was performe d with a [place] blade and extended with Nickerson scissors. The ROBERTS was anast omosed in end-to-side manner using running 8-0 Prolene suture. The ROBERTS pedic le was tacked to epicardium using two interrupted 6-0 Prolene suture. Next, attention was shifted to the mitral valve. A standard left atriotomy was perf ormed posterior to the Sondergaard's groove. Genesis retractor was use d with good exposure of the mitral valve. Next, the anterior mitral leaflet was transected and plicated to the annulus. Annulus was then sized to a 31 Magn a Ease valve. Next, circumferential 3 Ethibond sutures were placed i n the mitral annulus. Size 31 Magna Ease valve having been prepared at the [facility] k table was brought on to the surgical field. The sutures were then sequential ly passed through the sewing ring. The valve was lowered down to the annulus. After confirming proper seating, the sutures were ti ed. Rewarming was commenced at this stage. The left atriotomy was closed in a single layer using run luisito 4-0 Prolene suture. Careful deaeration was performed and the crosscl amp was released. One active ventricular wire was placed. A 28-Swedish chest t ube was placed in the mediastinum and 28-angle chest tube plac ed in the left pleural space. Once the patient's was at temperature , de-airing maneuvers were repeated and the patient was weaned off cardiopulmonary bypass with minim al inotropic support. Heparin was reversed with protamine. Decannulation was u neventful. After confirming hemostasis, the chest was closed in laye rs using stainless steel wires for the sternum, #1 Vicryl for the fascia, 2-0 Vicryl fo r the subcutaneous tissue and 4-0 Vicryl for the skin. The patient was transferred to the intensive care unit, intubated in stable condition. Dictated By: René Romero MD Date Dictated: 12/19/2021 15:14:49 Date Transcribed: 12/19/2021 19:44:12 [place] [place] NAME: CECI GILESELLA [id number] Receipt ID: [id number] Authenticated by Vadim Romero MD On 022 11:36:00 AM at 1136 PATIENT NAME: CECI GILESELLA [id number] 2021-12-19 15:00:00-00:00 [facility] ([facility]) Brief Op Note REPORT#:[id number] REPORT STATUS: Signed DATE:12/19/21 TIME: 1500 PATIENT: SAÚL GILES UNIT #: [id number] ROOM/BED: [place] [address] : 43 AGE: 76 SEX: F ATTEND: Leah More MD ADM AUTHOR: René Romero MD * ALL edits or amendments must be made on the [employer] document * Op/Inv Proc Note - Brief Pre-procedure diagnosis: Constrictive pericarditis, CAD Post-procedure diagnosis: Constrictive pericardi tis, CAD, severe MR Procedures performed: MVR (31 Magna valve) CABG x 1 (ROBERTS-LAD) ILAA Pericardectomy Primary Surgeon: Dionna Deputy Chief Counsel(s): Dione Ross Findings: severe MR due to restrictive posterior leaflet Complications: none Estimated blood loss in ml's: 100 cc Specimens removed/altered: none at 1503 RPT #:[id number] END OF REPORT 2021-12-19 13:49:00-00:00 [facility] Cardiology Progress Note REPORT#:[id number] REPORT STATUS: Signed DATE:12/19/21 TIME: 1349 PATIENT: SAÚL GILES UNIT #: [id number] ROOM/BED: [place] [address] : 43 AGE: 76 SEX: F ATTEND: Leah More MD ADM AUTHOR: Isabella Clemens CNP * ALL edits or amendments must be made on the [employer] document * Subjective HPI: Ms Giles is a 76 y/o Femal w / PMHx: CAD, HLD, T2DM, RONA (CPAP at home), smoker, Crohn's disease, AF s/p ablation (on Xar elto), s/p PPM and lymphedema; patient is from [place]. Dr. Fortune is consulted f or CAD. Patient experienced intermittent nonradiated chest tightness . She reports sob x 1 year, was placed on diuretics; however her sob is not res olved. LHC showed 70% stenosis of left proximal LAD, diffuse LAD, distal LAD 80 % stenosis, constrictive pericarditis. CTS was consulted. Objective General VS/I O: 24 hour I O ending at 0700: 12/19 0700 12/18 1900 Intake Total 75 350 Output Total 600 Balance 75 -250 Intake, Oral 75 350 Number Voids 1 Output, Urine 600 Patient 120.1 kg Weight Weight Standing scale Measurement Method Vital Signs: Date Time Temp Pulse Resp B/P B/P Pulse O2 O2 F low FiO2 Mean Ox Delivery Rate 12/19 416 36.6 70 20 135/73 93.5 94 Nasal cannula 12/19 2311 36.7 70 18 137/81 99.5 95 Nasal cannula 12/19 2031 95 Nasal 4 cannula 12/18 1929 Nasal 4 cannula 12/18 1922 36.6 73 18 142/78 99.5 92 Nasal cannula 12/18 1557 36.6 71 12 139/71 93.5 100 Nasal 4 cannula PATIENT WEIGHT: Weight (lb): 264 Weight (oz): 12.4 Weight (kg): 120.100 Medications: Active Meds + DC'd Last 24 Hrs Cyanocobalamin (Vitamin B-12 500 mcg tab) 500 MC G DAILY PO Ferrous Sulfate (FERROUS SULFATE) 325 MG DAILY P O Bisacodyl (DULCOLAX) 10 MG ONCE PRN RECTAL Magnesium Hydroxide (MILK OF MAGNESIA) 30 ML ONC E PRN PO Clopidogrel Bisulfate (Plavix) 75 MG DAILY PO Polyethylene Glycol (MIRALAX) 17 GM DAILY PO Pantoprazole (PROTONIX) 40 MG DAILY@0600 PO Vancomycin HCl (VANCOMYCIN HCL) 1,000 MG Q12H IV Sodium Chloride (SODIUM CHLORIDE 0.9%) 250 ML Docusate Sodium (COLACE) 100 MG BID PO Metoprolol Tartrate (LOPRESSOR) 12.5 MG Q12HR PO Sennosides (Senna Lax 8.6 MG TABLET) 17.2 MG BED TIME PO Aspirin (ASPIRIN) 81 MG DAILY PO Gabapentin (NEURONTIN) 200 MG BID 9A 5P PO Amiodarone HCl (CORDARONE) 200 MG TID PO Furosemide (LASIX 20MG INJ) 10 MG ONCE ONE IV (U NV) Tramadol HCl (ULTRAM) 25 MG Q4H PRN PRN PO Tramadol HCl (ULTRAM) 50 MG Q4H PRN PRN PO Mupirocin (BACTROBAN 2% 22 GM OINTMENT) 1 APPLIC BID NASAL Acetaminophen (TYLENOL) 650 MG Q4H PRN PRN PO Acetaminophen (TYLENOL) 650 MG Q4H PRN PRN RECTA L Albumin Human (ALBUMINAR 25%) 25 GM ASDIR PRN IV Calcium Chloride (CALCIUM CHLORIDE) 1 GM ASDIR P RN IV Chlorhexidine Gluconate (PERIDEX) 15 ML Q2H MM ( CKD) Dextrose/Water (DEXTROSE 10% IN WATER) 125 ML DIR PRN IV (CKD) Dextrose/Water (DEXTROSE 10% IN WATER) 250 ML DIR PRN IV (CKD) Epinephrine (ADRENALIN CHLORIDE) 5 MG ASDIR IV Dextrose/Water (DEXTROSE 5% WATER) 245 ML Glucagon (GLUCAGON) 1 MG ASDIR PRN IM Insulin Human Regular (HumuLIN R) 100 UNIT ASDIR IV (CKD) Sodium Chloride (SODIUM CHLORIDE 0.9%) 99 ML Magnesium Sulfate (MAGNESIUM SULFATE 4GM/SWFI 10 0ML) 100 ML ASDIR PRN IV Magnesium Sulfate (MAGNESIUM SULFATE 2GM/SWFI 50 ML) 50 ML ASDIR PRN IV Magnesium Sulfate/Dextrose (MAGNESIUM SULFATE 1G M/D5W 100ML) 100 ML ASDIR PRN IV Nitroglycerin/Dextrose (NITROGLYCERIN 50,000MCG/ D5W 250ML) 250 ML ASDIR IV Norepinephrine Bitartrate (NOREPINEPHRINE 8 MG/N S 250 ML) 250 ML TITRATE IV Oxycodone HCl (ROXICODONE) 5 MG Q4H PRN PRN PO ( DC) Oxycodone HCl (ROXICODONE) 10 MG Q4H PRN PRN PO (DC) Potassium Chloride (KCL 20MEQ/SWFI 100ML) 100 ML ASDIR PRN IV Sodium Bicarbonate (SODIUM BICARBONATE) 50 MEQ A SDIR PRN IV Sodium Chloride (SODIUM CHLORIDE 0.9%) 1,000 ML .Q20H IV Sodium Chloride (SODIUM CHLORIDE 0.9%) 250 ML Q2 4H IV Protamine Sulfate (PROTAMINE SULFATE) 0 .STK-MED ONE IV (DC) Heparin Sodium (HEPARIN SODIUM) 0 .STK-MED ONE . ROUTE (DC) Papaverine HCl (PAPAVERINE HCL) 0 .STK-MED ONE I V (DC) Calcium Chloride (CALCIUM CHLORIDE) 0 .STK-MED O NE IV (DC) Epinephrine/Dextrose (Epinephrine 5MG/D5W 250ML) 250 ML .STK-MED ONE IV (DC) Insulin Human Regular (HumuLIN R 100 UNITS/NS 10 0ML) 100 ML .STK-MED ONE IV (DC) Nitroglycerin/Dextrose (NITROGLYCERIN 50,000MCG/ D5W 250ML) 250 ML .STK-MED ONE IV (DC) Norepinephrine Bitartrate (NOREPINEPHRINE 8 MG/N S 250 ML) 250 ML .STK-MED ONE IV (DC) Magnesium Sulfate (MAGNESIUM SULFATE) 0 .STK-MED ONE .ROUTE (DC) Ropivacaine (NAROPIN 0.5% 150 MG/30mL) 0 .STK-ME D ONE .ROUTE (DC) Aminocaproic Acid (AMICAR) 0 .STK-MED ONE IV (DC ) Heparin Sodium (HEPARIN SODIUM) 0 .STK-MED ONE . ROUTE (DC) Propofol (DIPRIVAN 200MG/20ML INJECTION) 0 .STK- MED ONE IV (DC) Dexamethasone Sodium Phosphate (DECADRON) 0 .STK -MED ONE .ROUTE (DC) Fentanyl Citrate (SUBLIMAZE) 0 .STK-MED ONE IV ( DC) Lidocaine HCl (XYLOCAINE) 0 .STK-MED ONE .ROUTE (DC) Midazolam HCl (VERSED) 0 .STK-MED ONE .ROUTE (DC ) Ondansetron HCl (ZOFRAN) 0 .STK-MED ONE .ROUTE ( DC) Rocuronium [place] (ZEMURON) 0 .STK-MED ONE IV ( DC) Albumin Human (ALBUMINAR-25%) 100 ML .STK-MED ON E IV (DC) Heparin Sodium (HEPARIN SODIUM) 0 .STK-MED ONE . ROUTE (DC) Lidocaine HCl (XYLOCAINE IV) 0 .STK-MED ONE IV ( DC) Mannitol (MANNITOL 25% 12.5GM/50ML) 0 .STK-MED O NE IV (DC) Sodium Bicarbonate (SODIUM BICARBONATE) 0 .STK-M ED ONE IV (DC) Sodium Chloride (SODIUM CHLORIDE 0.9%) 100 ML .S TK-MED ONE IV (DC) Magnesium Sulfate (MAGNESIUM SULFATE) 0 .STK-MED ONE IV (DC) Phenylephrine HCl (TAMI-SYNEPHRINE 10MG/ML AMP) 0 .STK-MED ONE .ROUTE (DC ) Cefazolin Sodium (KEFZOL OR ANCEF) 0 .STK-MED ON E .ROUTE (DC) Metoprolol Tartrate (LOPRESSOR) 6.25 MG PREOP ON CE ONE PO (DC) Vancomycin HCl (VANCOMYCIN HCL) 1,750 MG PREOP O NCALL IV (CKD) Sodium Chloride (SODIUM CHLORIDE 0.9%) 500 ML Verapamil HCl (ISOPTIN) 16.6 MG PREOP ONCALL IV (CKD) Heparin Sodium (Porcine) (HEPARIN SODIUM) 1,660 UNIT Sodium Bicarbonate (SODIUM BICARBONATE) 0.7 ML Nitroglycerin/Dextrose (NITROGLYCERIN 50MG/D5W 250ML) 8.3 MG Lactated Ringer's (LACTATED RINGERS) 949.5 ML Atorvastatin Calcium (LIPITOR) 40 MG 2100 PO Ceftriaxone Sodium (ROCEPHIN 1000MG VIAL) 1,000 MG Q24H IV Sodium Chloride (SODIUM CHLORIDE) 10 ML Acetaminophen (TYLENOL EXTRA STRENGTH) 1,000 MG PREOP ONCALL PO (CKD) Gabapentin (NEURONTIN) 200 MG PREOP ONCALL PO (D C) Ondansetron HCl (ZOFRAN) 4 MG Q6H PRN PRN IV Amlodipine Besylate (NORVASC) 5 MG DAILY PO Acetaminophen (TYLENOL EXTRA STRENGTH) 1,000 MG PREOP ONCALL PO (CKD) Gabapentin (NEURONTIN) 200 MG PREOP ONCALL PO (D C) Pantoprazole (PROTONIX) 40 MG DAILY@0600 PO Cefazolin Sodium (KEFZOL OR ANCEF) 3 GM PREOP 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 IV (DC) Sodium Chloride (SODIUM CHLORIDE 0.9%) 250 ML Vancomycin HCl (VANCOMYCIN HCL) 1,750 MG PREOP O NCALL IV (CKD) Sodium Chloride (NS 0.9%) 500 ML Verapamil HCl (ISOPTIN) 16.6 MG .Q24H ONE IV (DC ) Heparin Sodium (Porcine) (HEPARIN SODIUM) 1,660 UNIT Sodium Bicarbonate (SODIUM BICARBONATE) 0.7 ML Nitroglycerin/Dextrose (NITROGLYCERIN 50MG/D5W 250ML) 8.3 MG Lactated Ringer's (LACTATED RINGERS) 949.5 ML Clonidine HCl (CATAPRES) 0.3 MG BID PO (DC) Doxazosin Mesylate (CARDURA) 4 MG BEDTIME PO (D C) Insulin Glargine (Lantus/Semglee) 50 UNIT BID [place] BQ (DC) Insulin Human Lispro (HUMALOG) 0 AC HS SUBQ (DC) Dextrose/Water (DEXTROSE 10% IN WATER) 125 ML DIR PRN IV (CKD) Dextrose/Water (DEXTROSE 10% IN WATER) 250 ML DIR PRN IV (CKD) Glucagon (GLUCAGON) 1 MG ASDIR PRN IM Status post: CABG, MVR, and ILAA Pacemaker: permanent Physical Exam General appearance: respiratory support Cardiovascular: CV assessment: regular rate and rhythm Respiratory: on vent Abdomen: obese Genitourinary: no flank pain, no urinary cathete r Upper extremity: UE assessment: normal temperature, no edema Lower extremity: LE assessment: edema 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 - op Psychiatry: unable to evaluate Results Findings/Data: Laboratory Tests 12/19 12/19 12/19 12/19 1307 1256 1123 1049 Blood Gas Puncture Site [place] Art Line O2 Saturation (90 - 100 %) 94.0 99.9 99.8 ABG pH (7.35 - 7.45) 7.383 7.472 H 7.467 H ABG pCO2 (35.0 - 45 mmHg) 51.0 *H 35.8 42.3 ABG pO2 (80 - 100.0 mmHg) 72.1 L 303.1 *H 226.6 *H ABG PO2/FiO2 Ratio (mm/Hg) 144.20 ABG HCO3 (22.0 - 26.0 MMOL/L) 30.4 *H 26.2 H 30 .6 *H ABG Total CO2 32.0 27.2 31.9 ABG Base Excess (-4.0 - 4.0 MMOL/L) 5.3 H 2.5 6 .2 H ABG Hematocrit (33.0 - 45.0 %) 26 L 27 L 26 L 2 5 L ABG Hemoglobin (11.0 - 15.0 G/DL) 8.9 L 9.2 L 9 .0 L 8.5 L Martin Test N/A VBG pH (7.33 - 7.45) 7.334 VBG pCO2 (43 - 47 mmHg) 57.2 *H VBG pO2 (10 - 50 mmHG) 35.1 VBG HCO3 (22 - 27 MMOL/L) 30.5 H POC VBG Total CO2 32.2 VBG O2 Saturation (60 - 80 %) 61.8 VBG Base Excess (-4.0 - 4.0 MMOL/L) 4.6 H Sodium (134 - 147 MEQ/L) 143 144 145 143 Potassium (3.4 - 5.0 MEQ/L) 3.7 3.8 4.5 5.2 H Chloride (100 - 108 MEQ/L) 105 105 106 104 Ionized Calcium (1.12 - 1.32 1.30 1.29 1.33 H 1 .18 MMOL/L) Lactic Acid (0.9 - 1.7 mmol/l) 1.9 H 2.0 H 2.3 H 1.4 Temperature (F) 98 O2 Delivery Device Adult Vent Vent Mode AC Vent Rate (/MIN) 18 FiO2 (%) 60 50 Tidal Volume (ml) 450 500 PEEP (cmH2O) 5 5 12/19 12/19 12/19 12/19 1020 0945 0915 0839 Blood Gas O2 Saturation (90 - 100 %) 99.9 100.0 100.0 99. 9 ABG pH (7.35 - 7.45) 7.550 *H 7.532 *H 7.473 H 7.421 ABG pCO2 (35.0 - 45 mmHg) 35.2 36.8 41.7 42.1 ABG pO2 (80 - 100.0 mmHg) 278.5 *H 427.8 *H 447 .6 *H 349.7 *H ABG HCO3 (22.0 - 26.0 MMOL/L) 30.8 *H 30.8 *H 3 0.6 *H 27.4 H ABG Total CO2 31.8 32.0 31.9 28.7 ABG Base Excess (-4.0 - 4.0 MMOL/L) 7.9 H 7.7 H 6.4 H 2.6 ABG Hematocrit (33.0 - 45.0 %) 27 L 27 L 27 L 3 0 L ABG Hemoglobin (11.0 - 15.0 G/DL) 9.1 L 9.2 L 9 .2 L 10.3 L Sodium (134 - 147 MEQ/L) 143 143 143 142 Potassium (3.4 - 5.0 MEQ/L) 5.3 H 4.5 4.9 4.2 Chloride (100 - 108 MEQ/L) 104 103 102 101 Ionized Calcium (1.12 - 1.32 MMOL/L) 1.15 1.17 1.13 1.16 Lactic Acid (0.9 - 1.7 mmol/l) 1.1 1.3 1.2 1.1 12/19 0734 Blood Gas O2 Saturation (90 - 100 %) 100.0 ABG pH (7.35 - 7.45) 7.439 ABG pCO2 (35.0 - 45 mmHg) 38.6 ABG pO2 (80 - 100.0 mmHg) 482.6 *H ABG HCO3 (22.0 - 26.0 MMOL/L) 26.2 H ABG Total CO2 27.3 ABG Base Excess (-4.0 - 4.0 MMOL/L) 1.9 ABG Hematocrit (33.0 - 45.0 %) 28 L ABG Hemoglobin (11.0 - 15.0 G/DL) 9.5 L Sodium (134 - 147 MEQ/L) 143 Potassium (3.4 - 5.0 MEQ/L) 4.3 Chloride (100 - 108 MEQ/L) 104 Ionized Calcium (1.12 - 1.32 MMOL/L) 1.13 Lactic Acid (0.9 - 1.7 mmol/l) 2.0 H Laboratory Tests 12/19 12/19 12/19 12/19 12/19 1307 1257 1257 1256 1123 Chemistry Sodium (134 - 147 mEq/L) 147 Potassium (3.4 - 5.0 mEq/L) 3.6 Chloride (100 - 108 mEq/L) 109 H Carbon Dioxide (21 - 33 mEq/l) 28 Anion Gap (0 - 20) 14 BUN (7 - 18 mg/dL) 18 Creatinine (0.6 - 1.3 mg/dL) 0.8 POC Creatinine (0.6 - 1.0 mg/dL) 0.8 0.9 0.8 Glomerular Filtr Rate (70 - 80) 69.4 L Glucose (70 - 110 mg/dL) 153 H POC Glucose (mg/dL) (70 - 110 MG/DL) 141 H 144 H 168 H Lactic Acid (0.4 - 1.9 mmol/L) 2.2 H Calcium (8.0 - 10.5 mg/dL) 8.7 Magnesium (1.80 - 2.40 mg/dL) 2.45 H Total Bilirubin (0.0 - 1.0 mg/dL) 1.00 Direct Bilirubin (0.0 - 0.30 MG/DL) 0.40 H Indirect Bilirubin (MG/DL) 0.60 AST (15 - 37 IUnit/L) 44 H ALT (30 - 65 IUnit/L) 11 L Total Alk Phosphatase (20 - 125 47 IUnit/L) Total Protein (6.4 - 8.2 g/dL) 5.5 L Albumin (3.4 - 5.0 g/dL) 3.20 L 12/19 12/19 12/19 12/19 12/19 1049 1020 0945 0915 0839 Chemistry POC Creatinine (0.6 - 1.0 mg/dL) 0.9 0.9 1.0 0. 9 0.9 POC Glucose (mg/dL) (70 - 110 MG/DL) 180 H 197 H 193 H 208 H 244 H 12/19 12/19 12/18 12/18 0734 0440 1922 1556 Chemistry Sodium (134 - 147 mEq/L) 143 Potassium (3.4 - 5.0 mEq/L) 4.8 Chloride (100 - 108 mEq/L) 105 Carbon Dioxide (21 - 33 mEq/l) 32 Anion Gap (0 - 20) 11 BUN (7 - 18 mg/dL) 16 Creatinine (0.6 - 1.3 mg/dL) 0.9 POC Creatinine (0.6 - 1.0 mg/dL) 1.0 Glomerular Filtr Rate (70 - 80) 60.6 L Glucose (70 - 110 mg/dL) 136 H POC Glucose (70 - 110 MG/DL) 260 H 226 H POC Glucose (mg/dL) (70 - 110 MG/DL) 257 H Calcium (8.0 - 10.5 mg/dL) 9.7 Total Bilirubin (0.0 - 1.0 mg/dL) 0.50 AST (15 - 37 IUnit/L) 16 ALT (30 - 65 IUnit/L) 11 L Total Alk Phosphatase (20 - 125 IUnit/L) 71 Total Protein (6.4 - 8.2 g/dL) 7.4 Albumin (3.4 - 5.0 g/dL) 3.80 Laboratory Tests 12/19 12/19 12/19 12/19 1257 1125 1051 1027 Coagulation INR (0.8 - 1.2) 1.5 H PTT (Tk) (25.0 - 39.5 Seconds) 24.4 L PT Patient/Control Mix (9.3 - 12.9 SECONDS) 16. 7 H Activated Coag Time (74 - 137 SEC) 115 491 H 51 5 H 12/19 12/19 12/19 12/19 0947 0918 0840 0737 Coagulation Activated Coag Time (74 - 137 SEC) 642 H 746 H 740 H 138 H 12/19 12/19 0440 0440 Coagulation INR (0.8 - 1.2) 1.2 PTT ([place]) (25.0 - 39.5 Seconds) 31.1 PT Patient/Control Mix (9.3 - 12.9 SECONDS) 13. 5 H Laboratory Tests 12/19 12/19 1257 0440 Hematology WBC (4.5 - 11.0 x10 3/uL) 7.8 4.9 RBC (3.54 - 5.02 x10 6/uL) 2.37 L 3.11 L Hgb (11.0 - 15.0 g/dL) 9.3 L 11.0 Hct (33.0 - 45.0 %) 26.5 L 34.5 MCV (81.0 - 99.0 fL) 111.8 H 110.9 H MCH (27.0 - 33.0 pg) 39.2 H 35.4 H MCHC (33.0 - 37.0 g/dL) 35.1 31.9 L RDW (11.5 - 14.5 %) 15.8 H 15.9 H Plt Count (150 - 400 x10 3/uL) 76 L 118 L MPV (7.0 - 9.0 fL) 10.9 H 12.0 H Neut % (Auto) (56.0 - 77.0 %) 87.6 H 82.5 H Lymph % (Auto) (14.0 - 32.0 %) 3.1 L 5.7 L Barron % (Auto) (4.8 - 9.0 %) 8.3 10.4 H Eos % (Auto) (0.3 - 3.7 %) 0.1 L 0.8 Baso % (Auto) (0.0 - 2.0 %) 0.1 0.2 Neut # (Auto) (2.0 - 7.6 x10 3/uL) 6.83 4.06 Lymph # (Auto) (1.0 - 3.8 x10 3/uL) 0.24 L 0.28 L Barron # (Auto) (0.1 - 0.8 x10 3/uL) 0.65 0.51 Eos # (Auto) (0.0 - 0.2 x10 3/uL) 0.01 0.04 Baso # (Auto) (0.0 - 0.2 x10 3/uL) 0.01 0.01 Abs Immat Gran (auto) (0.00 - 0.03 x10 3/uL) 0. 06 H 0.02 Add Manual Diff NO NO Immature Gran % (0.0 - 2.0 %) 0.8 0.4 Nucleated RBC % (0 - 0 %) 0.0 0.0 Nucleated RBCs # (Man) (0.0 - 0.1 x10 3/uL) 0.0 0 0.00 Platelet Estimate (ADEQUATE THOUSAND) 76-95 Polychromasia 1+ Anisocytosis 1+ Macrocytosis 1+ Laboratory Tests 12/19 1257 Chemistry Magnesium (1.80 - 2.40 mg/dL) 2.45 H Results: labs reviewed Telemetry Interpretation: paced Diagnosis, Assessment Plan Plan discussed with: nurse Free Text DxA P Notes Free Text DxA P Notes: Ms Giles is a 76 y/o Femal w / PMHx: CAD, HLD, T2DM, RONA (CPAP at home), smoker, Crohn's disease, AF s/p ablation (on Xar elto), s/p PPM and lymphedema; patient is from [place]. Dr. Fortune is consulted f or CAD. Patient experienced intermittent nonradiated chest tightness . She reports sob x 1 year, was placed on diuretics; however her sob is not res olved. LHC showed 70% stenosis of left proximal LAD, diffuse LAD, distal LAD 80 % stenosis, constrictive pericarditis. CTS was consulted. - CAD s/p CABG, MVR, and ILAA immediate post-op care per CTS and critical car e - Chr AF s/p PPM/ablation. Rate controlled, pace d rhythm. had ILAA during bypass - HTN. BP controlled. monitor off BP meds - HLD. On statins. - Crohn's disease. Per IM. at 1357 Electronically Signed by Aruna Fortune MD on at 0804 RPT #:[id number] END OF REPORT 2021-12-19 13:05:00-00:[address] [facility] ([facility]) Critical Care Consult Note REPORT#:[id number] REPORT STATUS: Signed DATE:12/19/21 TIME: 1305 PATIENT: SAÚL GILES UNIT #: [id number] ROOM/BED: [place] [address] : 43 AGE: 76 SEX: F ATTEND: Leah More MD ADM AUTHOR: Jd Alva MD * ALL edits or amendments must be made on the el oLyferonic/computer document * History of Present Illness HPI Requesting clinician: Dr. Romero Reason for consult: postop management Chief complaint: CABG/MVR PCP: PCP: Abdiaziz Fuchs MD HPI: 76-year-old morbidly obese f emale with history of HTN, HL, IDDM, smoking, RONA on CPAP and home O2 as needed, macular degeneration , Crohn's disease on immunosuppressant medication s, and chronic Afib s/p ablation and PPM (on Xarelto ), who was admitted recently with heart failure symptoms. Patient underwent elective cardiac cath that s howed severe multivessel coronary artery disease not suitable for percutaneous intervention. 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 She went for surgical revascularization today and preop JORDEN revealed severe mitral regurgitation. After discussing new findings with family, patient underwent MVR (31 M agna valve), CABG x 1 (ROBERTS-LAD), ILAA and pericardectomy on 12/19/2021. Has EF of 45%. Crystalloid 1 L, urine output 700, Cell Saver 700. She is a-paced at [facility] [employer]. Surgery went well and patient was transferred to CVICU pos top in a stable surgical condition. She is currently intubated on 2 mics of epine phrine, 2 mics of Levophed and insulin drip. CI 3.0, SvO2 in 60%s, CVP 15 and PAP in 60s. History - Adult longitudinal Past medical history: Reports: Atrial fibrillation, Diabetes mellitus, Hypertension, Dyslipidemia. Additional medical history: Clot degeneration Obstructive sleep apnea Chron's disease Past surgical history: Reports: Pacemaker (SJM). Alcohol use: Denies EtOH use Drug use: Denies recreational drugs Smoking status for patients 13 years old or olde r: Never Smoker Allergies: Coded Allergies: ciprofloxacin (From CIPRO) (Severe, JOINT PAIN 0 12/12/21) morphine (Severe, RASH, SWELLING 12/12/21) Review of Systems ROS Unable to obtain due to: vented Objective Physical Exam VS/I O: Last Documented: Result Date Time Pulse Ox 99 12/19 2234 FiO2 60 12/19 2234 Pulse 92 12/19 2234 O2 Delivery High flow nasal cannula 12/20 1943 O2 Flow Rate 10 12/20 1943 B/P 104/51 12/19 1844 B/P Mean 74 12/19 1844 Temp 98.6 12/19 1844 Resp 20 12/19 1844 24 hour I O ending at 0700: 12/19 0700 12/18 1900 Intake Total 75 350 Output Total 600 Balance 75 -250 Intake, Oral 75 350 Number Voids 1 Output, Urine 600 Patient 120.1 kg Weight Weight Standing scale Measurement Method Patient Weight and BMI Weight (kg): 120.100 BMI: 45.4 Medications: Active Meds + DC'd Last 24 Hrs Cyanocobalamin (Vitamin B-12 500 mcg tab) 500 MC G DAILY PO Ferrous Sulfate (FERROUS SULFATE) 325 MG DAILY P O Bisacodyl (DULCOLAX) 10 MG ONCE PRN RECTAL Magnesium Hydroxide (MILK OF MAGNESIA) 30 ML ONC E PRN PO Clopidogrel Bisulfate (Plavix) 75 MG DAILY PO Polyethylene Glycol (MIRALAX) 17 GM DAILY PO Pantoprazole (PROTONIX) 40 MG DAILY@0600 PO Vancomycin HCl (VANCOMYCIN HCL) 1,000 MG Q12H IV Sodium Chloride (SODIUM CHLORIDE 0.9%) 250 ML Docusate Sodium (COLACE) 100 MG BID PO Metoprolol Tartrate (LOPRESSOR) 12.5 MG Q12HR PO Sennosides (Senna Lax 8.6 MG TABLET) 17.2 MG BED TIME PO Milrinone Lactate/Dextrose (MILRINONE 20MG/D5W 1 00ML) 100 ML ASDIR IV ( CKD) Vasopressin (VASOSTRICT 20 Unit/NS 100ML) 100 ML ASDIR IV (CKD) Aspirin (ASPIRIN) 81 MG DAILY PO Gabapentin (NEURONTIN) 200 MG BID 9A 5P PO Fentanyl Citrate (SUBLIMAZE) 25 MCG ONCE ONE IV (DC) Amiodarone HCl (CORDARONE) 200 MG TID PO Furosemide (LASIX 20MG INJ) 10 MG ONCE ONE IV (D C) Tramadol HCl (ULTRAM) 25 MG Q4H PRN PRN PO Tramadol HCl (ULTRAM) 50 MG Q4H PRN PRN PO Mupirocin (BACTROBAN 2% 22 GM OINTMENT) 1 APPLIC BID NASAL Acetaminophen (TYLENOL) 650 MG Q4H PRN PRN PO Acetaminophen (TYLENOL) 650 MG Q4H PRN PRN RECTA L Albumin Human (ALBUMINAR 25%) 25 GM ASDIR PRN IV Calcium Chloride (CALCIUM CHLORIDE) 1 GM ASDIR P RN IV Chlorhexidine Gluconate (PERIDEX) 15 ML Q2H MM ( CKD) Dextrose/Water (DEXTROSE 10% IN WATER) 125 ML DIR PRN IV (CKD) Dextrose/Water (DEXTROSE 10% IN WATER) 250 ML DIR PRN IV (CKD) Epinephrine (ADRENALIN CHLORIDE) 5 MG ASDIR IV Dextrose/Water (DEXTROSE 5% WATER) 245 ML Glucagon (GLUCAGON) 1 MG ASDIR PRN IM Insulin Human Regular (HumuLIN R) 100 UNIT ASDIR IV (CKD) Sodium Chloride (SODIUM CHLORIDE 0.9%) 99 ML Magnesium Sulfate (MAGNESIUM SULFATE 4GM/SWFI 10 0ML) 100 ML ASDIR PRN IV Magnesium Sulfate (MAGNESIUM SULFATE 2GM/SWFI 50 ML) 50 ML ASDIR PRN IV Magnesium Sulfate/Dextrose (MAGNESIUM SULFATE 1G M/D5W 100ML) 100 ML ASDIR PRN IV Nitroglycerin/Dextrose (NITROGLYCERIN 50,000MCG/ D5W 250ML) 250 ML ASDIR IV Norepinephrine Bitartrate (NOREPINEPHRINE 8 MG/N S 250 ML) 250 ML TITRATE IV Oxycodone HCl (ROXICODONE) 5 MG Q4H PRN PRN PO ( DC) Oxycodone HCl (ROXICODONE) 10 MG Q4H PRN PRN PO (DC) Potassium Chloride (KCL 20MEQ/SWFI 100ML) 100 ML ASDIR PRN IV Sodium Bicarbonate (SODIUM BICARBONATE) 50 MEQ A SDIR PRN IV Sodium Chloride (SODIUM CHLORIDE 0.9%) 1,000 ML .Q20H IV Sodium Chloride (SODIUM CHLORIDE 0.9%) 250 ML Q2 4H IV Protamine Sulfate (PROTAMINE SULFATE) 0 .STK-MED ONE IV (DC) Heparin Sodium (HEPARIN SODIUM) 0 .STK-MED ONE . ROUTE (DC) Papaverine HCl (PAPAVERINE HCL) 0 .STK-MED ONE I V (DC) Calcium Chloride (CALCIUM CHLORIDE) 0 .STK-MED O NE IV (DC) Epinephrine/Dextrose (Epinephrine 5MG/D5W 250ML) 250 ML .STK-MED ONE IV (DC) Insulin Human Regular (HumuLIN R 100 UNITS/NS 10 0ML) 100 ML .STK-MED ONE IV (DC) Nitroglycerin/Dextrose (NITROGLYCERIN 50,000MCG/ D5W 250ML) 250 ML .STK-MED ONE IV (DC) Norepinephrine Bitartrate (NOREPINEPHRINE 8 MG/N S 250 ML) 250 ML .STK-MED ONE IV (DC) Magnesium Sulfate (MAGNESIUM SULFATE) 0 .STK-MED ONE .ROUTE (DC) Ropivacaine (NAROPIN 0.5% 150 MG/30mL) 0 .STK-ME D ONE .ROUTE (DC) Aminocaproic Acid (AMICAR) 0 .STK-MED ONE IV (DC ) Heparin Sodium (HEPARIN SODIUM) 0 .STK-MED ONE . ROUTE (DC) Propofol (DIPRIVAN 200MG/20ML INJECTION) 0 .STK- MED ONE IV (DC) Dexamethasone Sodium Phosphate (DECADRON) 0 .STK -MED ONE .ROUTE (DC) Fentanyl Citrate (SUBLIMAZE) 0 .STK-MED ONE IV ( DC) Lidocaine HCl (XYLOCAINE) 0 .STK-MED ONE .ROUTE (DC) Midazolam HCl (VERSED) 0 .STK-MED ONE .ROUTE (DC ) Ondansetron HCl (ZOFRAN) 0 .STK-MED ONE .ROUTE ( DC) Rocuronium [place] (ZEMURON) 0 .STK-MED ONE IV ( DC) Albumin Human (ALBUMINAR-25%) 100 ML .STK-MED ON E IV (DC) Heparin Sodium (HEPARIN SODIUM) 0 .STK-MED ONE . ROUTE (DC) Lidocaine HCl (XYLOCAINE IV) 0 .STK-MED ONE IV ( DC) Mannitol (MANNITOL 25% 12.5GM/50ML) 0 .STK-MED O NE IV (DC) Sodium Bicarbonate (SODIUM BICARBONATE) 0 .STK-M ED ONE IV (DC) Sodium Chloride (SODIUM CHLORIDE 0.9%) 100 ML .S TK-MED ONE IV (DC) Magnesium Sulfate (MAGNESIUM SULFATE) 0 .STK-MED ONE IV (DC) Phenylephrine HCl (TAMI-SYNEPHRINE 10MG/ML AMP) 0 .STK-MED ONE .ROUTE (DC ) Cefazolin Sodium (KEFZOL OR ANCEF) 0 .STK-MED ON E .ROUTE (DC) Metoprolol Tartrate (LOPRESSOR) 6.25 MG PREOP ON CE ONE PO (DC) Vancomycin HCl (VANCOMYCIN HCL) 1,750 MG PREOP O NCALL IV (CKD) Sodium Chloride (SODIUM CHLORIDE 0.9%) 500 ML Verapamil HCl (ISOPTIN) 16.6 MG PREOP ONCALL IV (CKD) Heparin Sodium (Porcine) (HEPARIN SODIUM) 1,660 UNIT Sodium Bicarbonate (SODIUM BICARBONATE) 0.7 ML Nitroglycerin/Dextrose (NITROGLYCERIN 50MG/D5W 250ML) 8.3 MG Lactated Ringer's (LACTATED RINGERS) 949.5 ML Atorvastatin Calcium (LIPITOR) 40 MG 2100 PO Ceftriaxone Sodium (ROCEPHIN 1000MG VIAL) 1,000 MG Q24H IV Sodium Chloride (SODIUM CHLORIDE) 10 ML Acetaminophen (TYLENOL EXTRA STRENGTH) 1,000 MG PREOP ONCALL PO (CKD) Gabapentin (NEURONTIN) 200 MG PREOP ONCALL PO (D C) Ondansetron HCl (ZOFRAN) 4 MG Q6H PRN PRN IV Amlodipine Besylate (NORVASC) 5 MG DAILY PO Acetaminophen (TYLENOL EXTRA STRENGTH) 1,000 MG PREOP ONCALL PO (CKD) Gabapentin (NEURONTIN) 200 MG PREOP ONCALL PO (D C) Pantoprazole (PROTONIX) 40 MG DAILY@0600 PO Cefazolin Sodium (KEFZOL OR ANCEF) 3 GM PREOP 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 IV (DC) Sodium Chloride (SODIUM CHLORIDE 0.9%) 250 ML Vancomycin HCl (VANCOMYCIN HCL) 1,750 MG PREOP O NCALL IV (CKD) Sodium Chloride (NS 0.9%) 500 ML Verapamil HCl (ISOPTIN) 16.6 MG .Q24H ONE IV (DC ) Heparin Sodium (Porcine) (HEPARIN SODIUM) 1,660 UNIT Sodium Bicarbonate (SODIUM BICARBONATE) 0.7 ML Nitroglycerin/Dextrose (NITROGLYCERIN 50MG/D5W 250ML) 8.3 MG Lactated Ringer's (LACTATED RINGERS) 949.5 ML Clonidine HCl (CATAPRES) 0.3 MG BID PO (DC) Doxazosin Mesylate (CARDURA) 4 MG BEDTIME PO (DC ) Insulin Glargine (Lantus/Semglee) 50 UNIT BID [place] BQ (DC) Insulin Human Lispro (HUMALOG) 0 AC HS SUBQ (DC) Dextrose/Water (DEXTROSE 10% IN WATER) 125 ML DIR PRN IV (CKD) Dextrose/Water (DEXTROSE 10% IN WATER) 250 ML DIR PRN IV (CKD) Glucagon (GLUCAGON) 1 MG ASDIR PRN IM Results Findings/Data: Laboratory Tests 12/19/21 2245: [Embedded Image Not Available] 12/19/21 1257: [Embedded Image Not Available] 12/19/21 0440: [Embedded Image Not Available] Laboratory Tests 12/19 12/19 12/19 12/19 2251 5 2006 185 Blood Gas Puncture Site Art Line Art Line Art Line Art Li ne O2 Saturation (90 - 100 %) 97.0 93.8 93.0 99.6 ABG pH (7.35 - 7.45) 7.301 L 7.284 *L 7.283 *L 7.276 *L ABG pCO2 (35.0 - 45 mmHg) 61.1 *H 68.4 *H 68.1 *H 65.7 *H ABG pO2 (80 - 100.0 mmHg) 103.3 H 82.3 78.8 L 203.2 *H ABG PO2/FiO2 Ratio (mm/Hg) 172.16 137.16 131.33 254.00 ABG HCO3 (22.0 - 26.0 MMOL/L) 30.1 *H 32.4 *H 3 2.1 *H 30.6 *H ABG Total CO2 32.0 34.4 34.2 32.6 ABG Base Excess (-4.0 - 4.0 MMOL/L) 3.7 5.7 H 5 .5 H 3.8 ABG Hematocrit (33.0 - 45.0 %) 22 L 23 L 23 L 2 4 L ABG Hemoglobin (11.0 - 15.0 G/DL) 7.5 L 7.9 L 7 .8 L 8.2 L Martin Test N/A Sodium (134 - 147 MEQ/L) 143 143 142 146 Potassium (3.4 - 5.0 MEQ/L) 4.7 4.6 4.5 4.4 Chloride (100 - 108 MEQ/L) 108 108 109 H 108 Ionized Calcium (1.12 - 1.32 MMOL/L) 1.29 1.33 H 1.31 1.29 Lactic Acid (0.9 - 1.7 mmol/l) 0.8 L 0.7 L 0.8 L 0.5 L Temperature (F) 98.8 99 99 98.6 O2 Delivery Device BiPAP BiPAP BiPAP Vent Mode CPAP/PS FiO2 (%) 60 60 60 80 PEEP (cmH2O) 5 5 578 Pressure Support (cmH2O) 14 12/19 12/19 12/19 1650 1446 1307 Blood Gas Puncture Site Art Line Art Line [place] O2 Saturation (90 - 100 %) 97.0 93.5 ABG pH (7.35 - 7.45) 7.333 L 7.482 H ABG pCO2 (35.0 - 45 mmHg) 56.4 *H 37.2 ABG pO2 (80 - 100.0 mmHg) 99.2 62.0 L ABG PO2/FiO2 Ratio (mm/Hg) 198.40 155.00 ABG HCO3 (22.0 - 26.0 MMOL/L) 29.9 *H 27.9 H ABG Total CO2 31.6 29.1 ABG Base Excess (-4.0 - 4.0 MMOL/L) 4.0 4.3 H ABG Hematocrit (33.0 - 45.0 %) 24 L 26 L 26 L ABG Hemoglobin (11.0 - 15.0 G/DL) 8.3 L 8.9 L 8 .9 L Martin Test N/A VBG pH (7.33 - 7.45) 7.334 VBG pCO2 (43 - 47 mmHg) 57.2 *H VBG pO2 (10 - 50 mmHG) 35.1 VBG HCO3 (22 - 27 MMOL/L) 30.5 H POC VBG Total CO2 32.2 VBG O2 Saturation (60 - 80 %) 61.8 VBG Base Excess (-4.0 - 4.0 MMOL/L) 4.6 H Sodium (134 - 147 MEQ/L) 143 144 143 Potassium (3.4 - 5.0 MEQ/L) 4.4 4.3 3.7 Chloride (100 - 108 MEQ/L) 108 106 105 Ionized Calcium (1.12 - 1.32 MMOL/L) 1.23 1.27 1.30 Lactic Acid (0.9 - 1.7 mmol/l) 0.9 1.6 1.9 H Temperature (F) 97.7 O2 Delivery Device Adult Vent Vent Mode AC AC Vent Rate (/MIN) 24 FiO2 (%) 50 40 60 Tidal Volume (ml) 450 450 PEEP (cmH2O) 5 5 5 Pressure Support (cmH2O) 10 12/19 12/19 12/19 12/19 1256 1123 1049 1020 Blood Gas Puncture Site Art Line O2 Saturation (90 - 100 %) 94.0 99.9 99.8 99.9 ABG pH (7.35 - 7.45) 7.383 7.472 H 7.467 H 7.55 0 *H ABG pCO2 (35.0 - 45 mmHg) 51.0 *H 35.8 42.3 35. 2 ABG pO2 (80 - 100.0 mmHg) 72.1 L 303.1 *H 226.6 *H 278.5 *H ABG PO2/FiO2 Ratio (mm/Hg) 144.20 ABG HCO3 (22.0 - 26.0 MMOL/L) 30.4 *H 26.2 H 30 .6 *H 30.8 *H ABG Total CO2 32.0 27.2 31.9 31.8 ABG Base Excess (-4.0 - 4.0 MMOL/L) 5.3 H 2.5 6 .2 H 7.9 H ABG Hematocrit (33.0 - 45.0 %) 27 L 26 L 25 L 2 7 L ABG Hemoglobin (11.0 - 15.0 G/DL) 9.2 L 9.0 L 8 .5 L 9.1 L Martin Test N/A Sodium (134 - 147 MEQ/L) 144 145 143 143 Potassium (3.4 - 5.0 MEQ/L) 3.8 4.5 5.2 H 5.3 H Chloride (100 - 108 MEQ/L) 105 106 104 104 Ionized Calcium (1.12 - 1.32 MMOL/L) 1.29 1.33 H 1.18 1.15 Lactic Acid (0.9 - 1.7 mmol/l) 2.0 H 2.3 H 1.4 1.1 Temperature (F) 98 O2 Delivery Device Adult Vent Vent Mode AC Vent Rate (/MIN) 18 FiO2 (%) 50 Tidal Volume (ml) 500 PEEP (cmH2O) 5 12/19 12/19 12/19 12/19 0945 0915 0839 0734 Blood Gas O2 Saturation (90 - 100 %) 100.0 100.0 99.9 100 .0 ABG pH (7.35 - 7.45) 7.532 *H 7.473 H 7.421 7.4 39 ABG pCO2 (35.0 - 45 mmHg) 36.8 41.7 42.1 38.6 ABG pO2 (80 - 100.0 mmHg) 427.8 *H 447.6 *H 349 .7 *H 482.6 *H ABG HCO3 (22.0 - 26.0 MMOL/L) 30.8 *H 30.6 *H 27.4 H 26.2 H ABG Total CO2 32.0 31.9 28.7 27.3 ABG Base Excess (-4.0 - 4.0 MMOL/L) 7.7 H 6.4 H 2.6 1.9 ABG Hematocrit (33.0 - 45.0 %) 27 L 27 L 30 L 2 8 L ABG Hemoglobin (11.0 - 15.0 G/DL) 9.2 L 9.2 L 1 0.3 L 9.5 L Sodium (134 - 147 MEQ/L) 143 143 142 143 Potassium (3.4 - 5.0 MEQ/L) 4.5 4.9 4.2 4.3 Chloride (100 - 108 MEQ/L) 103 102 101 104 Ionized Calcium (1.12 - 1.32 MMOL/L) 1.17 1.13 1.16 1.13 Lactic Acid (0.9 - 1.7 mmol/l) 1.3 1.2 1.1 2.0 H Laboratory Tests 12/19 12/19 12/19 12/19 12/19 4492 3978 8265 2006 185 Chemistry Sodium (134 - 147 mEq/L) 146 Potassium (3.4 - 5.0 mEq/L) 4.8 Chloride (100 - 108 mEq/L) 108 Carbon Dioxide (21 - 33 mEq/l) 29 Anion Gap (0 - 20) 14 BUN (7 - 18 mg/dL) 21 H Creatinine (0.6 - 1.3 mg/dL) 1.1 POC Creatinine (0.6 - 1.0 mg/dL) 1.2 H 1.2 H 1. 1 H 0.9 Glomerular Filtr Rate (70 - 80) 48.0 L Glucose (70 - 110 mg/dL) 186 H POC Glucose (mg/dL) (70 - 110 MG/DL) 178 H 163 H 171 H 159 H Calcium (8.0 - 10.5 mg/dL) 9.1 Ionized Calcium Gigi (1.09 - 1.30 MMOL/L) 1.16 Phosphorus (2.5 - 4.9 MG/DL) 3.9 Magnesium (1.80 - 2.40 mg/dL) 2.45 H 12/19 12/19 12/19 12/19 12/19 1650 1450 1446 1307 1257 Chemistry POC Creatinine (0.6 - 1.0 mg/dL) 0.9 0.9 0.8 POC Glucose (mg/dL) (70 - 110 MG/DL) 125 H 126 H 141 H Lactic Acid (0.4 - 1.9 mmol/l) 1.8 2.2 H 12/19 12/19 12/19 12/19 12/19 1257 1256 1123 1049 1020 Chemistry Sodium (134 - 147 mEq/L) 147 Potassium (3.4 - 5.0 mEq/L) 3.6 Chloride (100 - 108 mEq/L) 109 H Carbon Dioxide (21 - 33 mEq/l) 28 Anion Gap (0 - 20) 14 BUN (7 - 18 mg/dL) 18 Creatinine (0.6 - 1.3 mg/dL) 0.8 POC Creatinine (0.6 - 1.0 mg/dL) 0.9 0.8 0.9 0. 9 Glomerular Filtr Rate (70 - 80) 69.4 L Glucose (70 - 110 mg/dL) 153 H POC Glucose (mg/dL) (70 - 110 MG/DL) 144 H 168 H 180 H 197 H Calcium (8.0 - 10.5 mg/dL) 8.7 Magnesium (1.80 - 2.40 mg/dL) 2.45 H Total Bilirubin (0.0 - 1.0 mg/dL) 1.00 Direct Bilirubin (0.0 - 0.30 MG/DL) 0.40 H Indirect Bilirubin (MG/DL) 0.60 AST (15 - 37 IUnit/L) 44 H ALT (30 - 65 IUnit/L) 11 L Total Alk Phosphatase (20 - 125 IUnit/L) 47 Total Protein (6.4 - 8.2 g/dL) 5.5 L Albumin (3.4 - 5.0 g/dL) 3.20 L 12/19 12/19 12/19 12/19 12/19 0945 0915 0839 3956 3540 Chemistry Sodium (134 - 147 mEq/L) 143 Potassium (3.4 - 5.0 mEq/L) 4.8 Chloride (100 - 108 mEq/L) 105 Carbon Dioxide (21 - 33 mEq/l) 32 Anion Gap (0 - 20) 11 BUN (7 - 18 mg/dL) 16 Creatinine (0.6 - 1.3 mg/dL) 0.9 POC Creatinine (0.6 - 1.0 mg/dL) 1.0 0.9 0.9 1. 0 Glomerular Filtr Rate (70 - 80) 60.6 L Glucose (70 - 110 mg/dL) 136 H POC Glucose (mg/dL) (70 - 110 MG/DL) 193 H 208 H 244 H 257 H Calcium (8.0 - 10.5 mg/dL) 9.7 Total Bilirubin (0.0 - 1.0 mg/dL) 0.50 AST (15 - 37 IUnit/L) 16 ALT (30 - 65 IUnit/L) 11 L Total Alk Phosphatase (20 - 125 IUnit/L) 71 Total Protein (6.4 - 8.2 g/dL) 7.4 Albumin (3.4 - 5.0 g/dL) 3.80 Laboratory Tests 12/19 12/19 12/19 12/19 12/19 1257 1125 1051 1027 0947 Coagulation INR (0.8 - 1.2) 1.5 H PTT (Tk) (25.0 - 39.5 Seconds) 24.4 L PT Patient/Control Mix (9.3 - 12.9 16.7 H SECONDS) Activated Coag Time (74 - 137 SEC) 115 491 H 51 5 H 642 H 12/19 12/19 12/19 12/19 12/19 0918 0840 0737 0440 0440 Coagulation INR (0.8 - 1.2) 1.2 PTT ([place]) (25.0 - 39.5 Seconds) 31.1 PT Patient/Control Mix (9.3 - 12.9 13.5 H SECONDS) Activated Coag Time (74 - 137 SEC) 746 H 740 H 138 H Laboratory Tests 12/19 12/19 12/19 2245 1257 0440 Hematology WBC (4.5 - 11.0 x10 3/uL) 6.7 7.8 4.9 RBC (3.54 - 5.02 x10 6/uL) 2.00 L 2.37 L 3.11 L Hgb (11.0 - 15.0 g/dL) 7.5 L 9.3 L 11.0 Hct (33.0 - 45.0 %) 22.4 L 26.5 L 34.5 MCV (81.0 - 99.0 fL) 112.0 H 111.8 H 110.9 H MCH (27.0 - 33.0 pg) 37.5 H 39.2 H 35.4 H MCHC (33.0 - 37.0 g/dL) 33.5 35.1 31.9 L RDW (11.5 - 14.5 %) 16.1 H 15.8 H 15.9 H Plt Count (150 - 400 x10 3/uL) 62 L 76 L 118 L MPV (7.0 - 9.0 fL) 12.0 H 10.9 H 12.0 H Neut % (Auto) (56.0 - 77.0 %) 89.4 H 87.6 H 82. 5 H Lymph % (Auto) (14.0 - 32.0 %) 2.5 L 3.1 L 5.7 L Barron % (Auto) (4.8 - 9.0 %) 7.6 8.3 10.4 H Eos % (Auto) (0.3 - 3.7 %) 0.0 L 0.1 L 0.8 Baso % (Auto) (0.0 - 2.0 %) 0.1 0.1 0.2 Neut # (Auto) (2.0 - 7.6 x10 3/uL) 5.95 6.83 4. 06 Lymph # (Auto) (1.0 - 3.8 x10 3/uL) 0.17 L 0.2 4 L 0.28 L Barron # (Auto) (0.1 - 0.8 x10 3/uL) 0.51 0.65 0. 51 Eos # (Auto) (0.0 - 0.2 x10 3/uL) 0.00 0.01 0. 04 Baso # (Auto) (0.0 - 0.2 x10 3/uL) 0.01 0.01 0. 01 Abs Immat Gran (auto) (0.00 - 0.03 x10 3/uL) 0. 03 0.06 H 0.02 Add Manual Diff NO NO NO Immature Gran % (0.0 - 2.0 %) 0.4 0.8 0.4 Nucleated RBC % (0 - 0 %) 0.0 0.0 0.0 Nucleated RBCs # (Man) (0.0 - 0.1 x10 3/uL) 0.0 0 0.00 0.00 Platelet Estimate (ADEQUATE THOUSAND) 76-95 Immature Plt Fraction (0.9 - 11.2 %) 6.5 Polychromasia 1+ Anisocytosis 1+ Macrocytosis 1+ Microbiology: 12/18 183 URINE: Urine Culture - RES 12/18 1436 NASAL: MRSA DNA Surveillance Screen - CAN Cancelled: Cancelled via OE: Order Cancelled terrance begum MD 12/18 2003 NASAL: MSSA Surveillance Screen - COM P 12/18 2003 NASAL: MRSA DNA Surveillance Screen - COMP Radiology data: Recent Impressions: RADIOLOGY - XR CHEST 1 V 12/19 1315 Report Impression - Status: SIGNED Entered: 12/19/2021 1516 IMPRESSION: 1. There are patchy opacities throughout the dahlia gs, which could represent atelectasis. 2. Increased interstitial markings, which could represent pulmonary edema. Impression By: [email or web address] Enrico Chong RADIOLOGY - XR CHEST 1 V 12/19 1336 Report Impression - Status: SIGNED Entered: 12/19/2021 1403 IMPRESSION: 1. No retained metallic structure resembling a s urgical needle in the chest or visualized upper abdomen. 2. Line and tube positions as described. 3. Satisfactory postoperative appearance of the mediastinum with no visible procedural complication. 4. Bilateral platelike atelectasis and central/b ibasilar pulmonary opacities, probably representing atelectasis and or secretions. Findings were conveyed to the Surgical team at 1 2:30 p.m. Impression By: Lino vinson M.D. Free Text Obj Notes Free Text Obj Notes: General appearance: elderly female in no acute d istress Head/Eyes: atraumatic, normocephalic ENT: dry mucosal membranes, ETT in place Neck: full range of motion, supple/no meningismu s Cardiovascular: S1S2 regular rate and rhythm, pa freddy Respiratory: symmetric expansion, no acute respi ratory distress Abdomen: soft, obese, non-tender, no distention, no guarding Genitourinary: [place] with clear urine Extremities: pedal pulses, moves all, no clubbin g, no cyanosis, LE edema Vascular pulse assessment: palpated: R posterior tibialis, L posterior tibi jamari, R dorsalis pedis, L dorsalis pedis Musculoskeletal: normal inspection, no muscle sp asm 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 S/P MVR (mitral valve replacement) 2. S/P CABG x 1 3. Postoperative pulmonary dysfunction after ca rdiac surgery 4. Severe mitral regurgitation 5. CAD (coronary artery disease) 6. CKD (chronic kidney disease) 7. Immunosuppressed status 8. RONA on CPAP 9. Chronic a-fib 10. Crohn disease Consultants: cardiology, cardiovascular surgery Plan discussed with: family, consultants, nurse, interdisc care team, pharmacy/ pharmacist Critical care time: Minutes: 45 Free text DxA P: 76-year-old morbidly obese f emale with history of HTN, HL, IDDM, smoking, RONA on CPAP and home O2 as needed, macular degeneration , Crohn's disease on immunosuppressant medication s, and chronic Afib s/p ablation and PPM (on Xarelto ), who was admitted recently with heart failure symptoms. Patient underwent elective cardiac cath that s howed severe multivessel coronary artery disease not suitable for percutaneous intervention. 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 She went for surgical revascularization today and preop JORDEN revealed severe mitral regurgitation. After discussing new findings with family, patient underwent MVR (31 M agna valve), CABG x 1 (ROBERTS-LAD), ILAA and pericardectomy on 12/19/2021. Has EF of 45%. Crystalloid 1 L, urine output 700, Cell Saver 700. She is a-paced at [employer]. Surgery went well and patient was transferred to CVICU pos top in a stable surgical condition. She is currently intubated on 2 mics of epine phrine, 2 mics of Levophed and insulin drip. CI 3.0, SvO2 in 60%s, CVP 15 and PAP in 60s. Neuro: appears intact, keep off sedation, multim odal pain control, minimize narcotics use Respiratory: sats well on minimal vent s ettings, CPAP trial as tolerated, plan for extubation, may need bipap, obtain serial AB Gs, CXR reviewed Cardiovascular: Hemodynamically unstable on vaso pressors, attempt to wean, monitor PAP and hemodynamic parameters, keep CTs to suction Renal: strict I/Os, monitor Cr and electrolytes, mild lactic acidosis, trend LA, resuscitate as needed, home diuretics on hold GI: bedside swallow then ora l diet after extubation, keep NPO if required bipap, bowel regimen ID: trend WBC, continue shirley op antibiotics, low threshold for infection work-up, treated for UTI Hem: acute postop anemia and thrombocytopenia, m onitor Hgb and CTs output, no evidence of active bleed, tr ansfuse as needed, holding off on immunosuppressive meds Endo: Blood glucose control with insulin gtt per protocol Misc: PTOT consult, DVT and GI ppx with DAPT and PPI (home med) Electronically Signed by Jd Alva MD on 12/13 05/06 at 0621 RPT #:[id number] END OF REPORT 2021-12-19 12:50:00-00:[address] [facility] ([facility]) Hospitalist Progress Note REPORT#:[id number] REPORT STATUS: Signed DATE:12/19/21 TIME: 1250 PATIENT: SAÚL GILES UNIT #: [id number] ROOM/BED: [place] [id number] : 43 AGE: 76 SEX: F ATTEND: Leah More MD ADM AUTHOR: Meryl Rosa MD * ALL edits or amendments must be made on the [employer]/computer document * Subjective Chief complaint: she is intubated post CABG. HPI: 76 years old female with PMH of macular degeneration, obesity, obstructive sleep apnea (CPAP at home), former smoker, hypertensio n, hyperlipidemia, diabetes, Crohn's disease, chronic atr ial fibrillation status post 3 ablations in the past (on Xarelto), pacemaker plac ement is admitted to the hospital post cardiac cath . she need CABG . she had sob for years . sob go t worse . she was admitted to the hospital in [place] . she had cath 3 we eks ago . she was reffered to here for stents placement . she had cath yesterd ay . it show multiple vessels CAD . she is recommend CABG . she still feel sob . no cp no nausea no vomiting no fever no abdominal pain no dizziness . Review of Systems Unable to obtain due to: sedative Objective General VS/I O: Vital Signs: Date Time Temp Pulse Resp B/P B/P Pulse O2 O2 F low FiO2 Mean Ox Delivery Rate 12/19 0417 36.6 70 20 135/73 93.5 94 Nasal cannula 12/18 2312 36.7 70 18 137/81 99.5 95 Nasal cannula 12/18 2032 95 Nasal 4 cannula 12/18 1930 Nasal 4 cannula 12/18 1923 36.6 73 18 142/78 99.5 92 Nasal cannula 12/18 1557 36.6 71 12 139/71 93.5 100 Nasal 4 cannula 24 hour I O ending at 0700: 12/19 0700 12/18 1900 Intake Total 75 350 Output Total 600 Balance 75 -250 Intake, Oral 75 350 Number Voids 1 Output, Urine 600 Patient 120.1 kg Weight Weight Standing scale Measurement Method PATIENT WEIGHT: Weight (lb): 264 Weight (oz): 12.4 Weight (kg): 120.100 Medications: Active Meds + DC'd Last 24 Hrs Cyanocobalamin (Vitamin B-12 500 mcg tab) 500 MC G DAILY PO Ferrous Sulfate (FERROUS SULFATE) 325 MG DAILY P O Bisacodyl (DULCOLAX) 10 MG ONCE PRN RECTAL Magnesium Hydroxide (MILK OF MAGNESIA) 30 ML ONC E PRN PO Clopidogrel Bisulfate (Plavix) 75 MG DAILY PO Polyethylene Glycol (MIRALAX) 17 GM DAILY PO Pantoprazole (PROTONIX) 40 MG DAILY@0600 PO Vancomycin HCl (VANCOMYCIN HCL) 1,000 MG Q12H IV Sodium Chloride (SODIUM CHLORIDE 0.9%) 250 ML Docusate Sodium (COLACE) 100 MG BID PO Metoprolol Tartrate (LOPRESSOR) 12.5 MG Q12HR PO Sennosides (Senna Lax 8.6 MG TABLET) 17.2 MG BED TIME PO Aspirin (ASPIRIN) 81 MG DAILY PO Gabapentin (NEURONTIN) 200 MG BID 9A 5P PO Amiodarone HCl (CORDARONE) 200 MG TID PO Tramadol HCl (ULTRAM) 25 MG Q4H PRN PRN PO Tramadol HCl (ULTRAM) 50 MG Q4H PRN PRN PO Mupirocin (BACTROBAN 2% 22 GM OINTMENT) 1 APPLIC BID NASAL Acetaminophen (TYLENOL) 650 MG Q4H PRN PRN PO Acetaminophen (TYLENOL) 650 MG Q4H PRN PRN RECTA L Albumin Human (ALBUMINAR 25%) 25 GM ASDIR PRN IV Calcium Chloride (CALCIUM CHLORIDE) 1 GM ASDIR P RN IV Chlorhexidine Gluconate (PERIDEX) 15 ML Q2H MM ( CKD) Dextrose/Water (DEXTROSE 10% IN WATER) 125 ML DIR PRN IV (CKD) Dextrose/Water (DEXTROSE 10% IN WATER) 250 ML DIR PRN IV (CKD) Epinephrine (ADRENALIN CHLORIDE) 5 MG ASDIR IV Dextrose/Water (DEXTROSE 5% WATER) 245 ML Glucagon (GLUCAGON) 1 MG ASDIR PRN IM Insulin Human Regular (HumuLIN R) 100 UNIT ASDIR IV (CKD) Sodium Chloride (SODIUM CHLORIDE 0.9%) 99 ML Magnesium Sulfate (MAGNESIUM SULFATE 4GM/SWFI 10 0ML) 100 ML ASDIR PRN IV Magnesium Sulfate (MAGNESIUM SULFATE 2GM/SWFI 50 ML) 50 ML ASDIR PRN IV Magnesium Sulfate/Dextrose (MAGNESIUM SULFATE 1G M/D5W 100ML) 100 ML ASDIR PRN IV Nitroglycerin/Dextrose (NITROGLYCERIN 50,000MCG/ D5W 250ML) 250 ML ASDIR IV Norepinephrine Bitartrate (NOREPINEPHRINE 8 MG/N S 250 ML) 250 ML TITRATE IV Oxycodone HCl (ROXICODONE) 5 MG Q4H PRN PRN PO ( DC) Oxycodone HCl (ROXICODONE) 10 MG Q4H PRN PRN PO (DC) Potassium Chloride (KCL 20MEQ/SWFI 100ML) 100 ML ASDIR PRN IV Sodium Bicarbonate (SODIUM BICARBONATE) 50 MEQ A SDIR PRN IV Sodium Chloride (SODIUM CHLORIDE 0.9%) 1,000 ML .Q20H IV Sodium Chloride (SODIUM CHLORIDE 0.9%) 250 ML Q 24H IV Protamine Sulfate (PROTAMINE SULFATE) 0 .STK-MED ONE IV (DC) Heparin Sodium (HEPARIN SODIUM) 0 .STK-MED ONE . ROUTE (DC) Papaverine HCl (PAPAVERINE HCL) 0 .STK-MED ONE I V (DC) Calcium Chloride (CALCIUM CHLORIDE) 0 .STK-MED O NE IV (DC) Epinephrine/Dextrose (Epinephrine 5MG/D5W 250ML) 250 ML .STK-MED ONE IV (DC) Insulin Human Regular (HumuLIN R 100 UNITS/NS 10 0ML) 100 ML .STK-MED ONE IV (DC) Nitroglycerin/Dextrose (NITROGLYCERIN 50,000MCG/ D5W 250ML) 250 ML .STK-MED ONE IV (DC) Norepinephrine Bitartrate (NOREPINEPHRINE 8 MG/N S 250 ML) 250 ML .STK-MED ONE IV (DC) Magnesium Sulfate (MAGNESIUM SULFATE) 0 .STK-MED ONE .ROUTE (DC) Ropivacaine (NAROPIN 0.5% 150 MG/30mL) 0 .STK-ME D ONE .ROUTE (DC) Aminocaproic Acid (AMICAR) 0 .STK-MED ONE IV (DC ) Heparin Sodium (HEPARIN SODIUM) 0 .STK-MED ONE . ROUTE (DC) Propofol (DIPRIVAN 200MG/20ML INJECTION) 0 .STK- MED ONE IV (DC) Dexamethasone Sodium Phosphate (DECADRON) 0 .STK -MED ONE .ROUTE (DC) Fentanyl Citrate (SUBLIMAZE) 0 .STK-MED ONE IV ( DC) Lidocaine HCl (XYLOCAINE) 0 .STK-MED ONE .ROUTE (DC) Midazolam HCl (VERSED) 0 .STK-MED ONE .ROUTE (DC ) Ondansetron HCl (ZOFRAN) 0 .STK-MED ONE .ROUTE ( DC) Rocuronium [place] (ZEMURON) 0 .STK-MED ONE IV ( DC) Albumin Human (ALBUMINAR-25%) 100 ML .STK-MED ON E IV (DC) Heparin Sodium (HEPARIN SODIUM) 0 .STK-MED ONE . ROUTE (DC) Lidocaine HCl (XYLOCAINE IV) 0 .STK-MED ONE IV ( DC) Mannitol (MANNITOL 25% 12.5GM/50ML) 0 .STK-MED O NE IV (DC) Sodium Bicarbonate (SODIUM BICARBONATE) 0 .STK-M ED ONE IV (DC) Sodium Chloride (SODIUM CHLORIDE 0.9%) 100 ML .S TK-MED ONE IV (DC) Magnesium Sulfate (MAGNESIUM SULFATE) 0 .STK-MED ONE IV (DC) Phenylephrine HCl (TAMI-SYNEPHRINE 10MG/ML AMP) 0 .STK-MED ONE .ROUTE (DC ) Cefazolin Sodium (KEFZOL OR ANCEF) 0 .STK-MED ON E .ROUTE (DC) Metoprolol Tartrate (LOPRESSOR) 6.25 MG PREOP ON CE ONE PO (DC) Vancomycin HCl (VANCOMYCIN HCL) 1,750 MG PREOP O NCALL IV (CKD) Sodium Chloride (SODIUM CHLORIDE 0.9%) 500 ML Verapamil HCl (ISOPTIN) 16.6 MG PREOP ONCALL IV (CKD) Heparin Sodium (Porcine) (HEPARIN SODIUM) 1,660 UNIT Sodium Bicarbonate (SODIUM BICARBONATE) 0.7 ML Nitroglycerin/Dextrose (NITROGLYCERIN 50MG/D5W 250ML) 8.3 MG Lactated Ringer's (LACTATED RINGERS) 949.5 ML Atorvastatin Calcium (LIPITOR) 40 MG 2100 PO Ceftriaxone Sodium (ROCEPHIN 1000MG VIAL) 1,000 MG Q24H IV Sodium Chloride (SODIUM CHLORIDE) 10 ML Acetaminophen (TYLENOL EXTRA STRENGTH) 1,000 MG PREOP ONCALL PO (CKD) Gabapentin (NEURONTIN) 200 MG PREOP ONCALL PO (D C) Ondansetron HCl (ZOFRAN) 4 MG Q6H PRN PRN IV Amlodipine Besylate (NORVASC) 5 MG DAILY PO Acetaminophen (TYLENOL EXTRA STRENGTH) 1,000 MG PREOP ONCALL PO (CKD) Gabapentin (NEURONTIN) 200 MG PREOP ONCALL PO (D C) Pantoprazole (PROTONIX) 40 MG DAILY@0600 PO Cefazolin Sodium (KEFZOL OR ANCEF) 3 GM PREOP 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 IV (DC) Sodium Chloride (SODIUM CHLORIDE 0.9%) 250 ML Vancomycin HCl (VANCOMYCIN HCL) 1,750 MG PREOP O NCALL IV (CKD) Sodium Chloride (NS 0.9%) 500 ML Verapamil HCl (ISOPTIN) 16.6 MG .Q24H ONE IV (DC ) Heparin Sodium (Porcine) (HEPARIN SODIUM) 1,660 UNIT Sodium Bicarbonate (SODIUM BICARBONATE) 0.7 ML Nitroglycerin/Dextrose (NITROGLYCERIN 50MG/D5W 250ML) 8.3 MG Lactated Ringer's (LACTATED RINGERS) 949.5 ML Clonidine HCl (CATAPRES) 0.3 MG BID PO (DC) Doxazosin Mesylate (CARDURA) 4 MG BEDTIME PO (DC ) Insulin Glargine (Lantus/Semglee) 50 UNIT BID [place] BQ (DC) Insulin Human Lispro (HUMALOG) 0 AC HS SUBQ (DC) Dextrose/Water (DEXTROSE 10% IN WATER) 125 ML DIR PRN IV (CKD) Dextrose/Water (DEXTROSE 10% IN WATER) 250 ML DIR PRN IV (CKD) Glucagon (GLUCAGON) 1 MG ASDIR PRN IM Physical Exam General appearance: respiratory support, sedated Head/Eyes: atraumatic, normal conjunctiva/sclera , normal eyelids/periorb., normocephalic ENT: intubated Neck: full range of motion, non-tender, no JVD Cardiovascular: normal heart sounds, regular rat e rhythm Respiratory: aerating well, clear to auscultatio n Abdomen: non-tender, normal bowel sounds, soft, no distention Extremities: moves all, no calf tenderness, no e ana 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 Skin: dry, intact Results Findings/Data: Laboratory Tests 12/19 [id number] Blood Gas Puncture Site Art Line Art Line Art Line Art Li ne O2 Saturation (90 - 100 %) 93.0 99.6 97.0 93.5 ABG pH (7.35 - 7.45) 7.283 *L 7.276 *L 7.333 L 7.482 H ABG pCO2 (35.0 - 45 mmHg) 68.1 *H 65.7 *H 56.4 *H 37.2 ABG pO2 (80 - 100.0 mmHg) 78.8 L 203.2 *H 99.2 62.0 L ABG PO2/FiO2 Ratio (mm/Hg) 131.33 254.00 198.40 155.00 ABG HCO3 (22.0 - 26.0 MMOL/L) 32.1 *H 30.6 *H 29.9 *H 27.9 H ABG Total CO2 34.2 32.6 31.6 29.1 ABG Base Excess (-4.0 - 4.0 MMOL/L) 5.5 H 3.8 4.0 4.3 H ABG Hematocrit (33.0 - 45.0 %) 23 L 24 L 24 L 2 6 L ABG Hemoglobin (11.0 - 15.0 G/DL) 7.8 L 8.2 L 8 .3 L 8.9 L Martin Test N/A N/A Sodium (134 - 147 MEQ/L) 142 146 143 144 Potassium (3.4 - 5.0 MEQ/L) 4.5 4.4 4.4 4.3 Chloride (100 - 108 MEQ/L) 109 H 108 108 106 Ionized Calcium (1.12 - 1.32 MMOL/L) 1.31 1.29 1.23 1.27 Lactic Acid (0.9 - 1.7 mmol/l) 0.8 L 0.5 L 0.9 1.6 Temperature (F) 99 98.6 97.7 O2 Delivery Device BiPAP BiPAP Adult Vent Vent Mode CPAP/PS AC AC Vent Rate (/MIN) 24 FiO2 (%) 60 80 50 40 Tidal Volume (ml) 450 PEEP (cmH2O) 578 5 5 Pressure Support (cmH2O) 14 10 12/19 12/19 12/19 12/19 1307 1256 1123 1049 Blood Gas Puncture Site [place] Art Line O2 Saturation (90 - 100 %) 94.0 99.9 99.8 ABG pH (7.35 - 7.45) 7.383 7.472 H 7.467 H ABG pCO2 (35.0 - 45 mmHg) 51.0 *H 35.8 42.3 ABG pO2 (80 - 100.0 mmHg) 72.1 L 303.1 *H 226.6 *H ABG PO2/FiO2 Ratio (mm/Hg) 144.20 ABG HCO3 (22.0 - 26.0 MMOL/L) 30.4 *H 26.2 H 30 .6 *H ABG Total CO2 32.0 27.2 31.9 ABG Base Excess (-4.0 - 4.0 MMOL/L) 5.3 H 2.5 6 .2 H ABG Hematocrit (33.0 - 45.0 %) 26 L 27 L 26 L 2 5 L ABG Hemoglobin (11.0 - 15.0 G/DL) 8.9 L 9.2 L 9 .0 L 8.5 L Martin Test N/A VBG pH (7.33 - 7.45) 7.334 VBG pCO2 (43 - 47 mmHg) 57.2 *H VBG pO2 (10 - 50 mmHG) 35.1 VBG HCO3 (22 - 27 MMOL/L) 30.5 H POC VBG Total CO2 32.2 VBG O2 Saturation (60 - 80 %) 61.8 VBG Base Excess (-4.0 - 4.0 MMOL/L) 4.6 H Sodium (134 - 147 MEQ/L) 143 144 145 143 Potassium (3.4 - 5.0 MEQ/L) 3.7 3.8 4.5 5.2 H Chloride (100 - 108 MEQ/L) 105 105 106 104 Ionized Calcium (1.12 - 1.32 1.30 1.29 1.33 H 1 .18 MMOL/L) Lactic Acid (0.9 - 1.7 mmol/l) 1.9 H 2.0 H 2.3 H 1.4 Temperature (F) 98 O2 Delivery Device Adult Vent Vent Mode AC Vent Rate (/MIN) 18 FiO2 (%) 60 50 Tidal Volume (ml) 450 500 PEEP (cmH2O) 5 5 12/19 12/19 12/19 12/19 1020 0945 0915 0839 Blood Gas O2 Saturation (90 - 100 %) 99.9 100.0 100.0 99. 9 ABG pH (7.35 - 7.45) 7.550 *H 7.532 *H 7.473 H 7.421 ABG pCO2 (35.0 - 45 mmHg) 35.2 36.8 41.7 42.1 ABG pO2 (80 - 100.0 mmHg) 278.5 *H 427.8 *H 447 .6 *H 349.7 *H ABG HCO3 (22.0 - 26.0 MMOL/L) 30.8 *H 30.8 *H 3 0.6 *H 27.4 H ABG Total CO2 31.8 32.0 31.9 28.7 ABG Base Excess (-4.0 - 4.0 MMOL/L) 7.9 H 7.7 H 6.4 H 2.6 ABG Hematocrit (33.0 - 45.0 %) 27 L 27 L 27 L 30 L ABG Hemoglobin (11.0 - 15.0 G/DL) 9.1 L 9.2 L 9 .2 L 10.3 L Sodium (134 - 147 MEQ/L) 143 143 143 142 Potassium (3.4 - 5.0 MEQ/L) 5.3 H 4.5 4.9 4.2 Chloride (100 - 108 MEQ/L) 104 103 102 101 Ionized Calcium (1.12 - 1.32 MMOL/L) 1.15 1.17 1.13 1.16 Lactic Acid (0.9 - 1.7 mmol/l) 1.1 1.3 1.2 1.1 12/19 0734 Blood Gas O2 Saturation (90 - 100 %) 100.0 ABG pH (7.35 - 7.45) 7.439 ABG pCO2 (35.0 - 45 mmHg) 38.6 ABG pO2 (80 - 100.0 mmHg) 482.6 *H ABG HCO3 (22.0 - 26.0 MMOL/L) 26.2 H ABG Total CO2 27.3 ABG Base Excess (-4.0 - 4.0 MMOL/L) 1.9 ABG Hematocrit (33.0 - 45.0 %) 28 L ABG Hemoglobin (11.0 - 15.0 G/DL) 9.5 L Sodium (134 - 147 MEQ/L) 143 Potassium (3.4 - 5.0 MEQ/L) 4.3 Chloride (100 - 108 MEQ/L) 104 Ionized Calcium (1.12 - 1.32 MMOL/L) 1.13 Lactic Acid (0.9 - 1.7 mmol/l) 2.0 H Laboratory Tests 12/19 1856 1650 1450 1446 Chemistry POC Creatinine (0.6 - 1.0 mg/dL) 1.1 H 0.9 0.9 0.9 POC Glucose (mg/dL) (70 - 110 MG/DL) 171 H 159 H 125 H 126 H Lactic Acid (0.4 - 1.9 mmol/l) 1.8 12/19 12/19 12/19 12/19 12/19 1307 1257 1257 1256 1123 Chemistry Sodium (134 - 147 mEq/L) 147 Potassium (3.4 - 5.0 mEq/L) 3.6 Chloride (100 - 108 mEq/L) 109 H Carbon Dioxide (21 - 33 mEq/l) 28 Anion Gap (0 - 20) 14 BUN (7 - 18 mg/dL) 18 Creatinine (0.6 - 1.3 mg/dL) 0.8 POC Creatinine (0.6 - 1.0 mg/dL) 0.8 0.9 0.8 Glomerular Filtr Rate (70 - 80) 69.4 L Glucose (70 - 110 mg/dL) 153 H POC Glucose (mg/dL) (70 - 110 MG/DL) 141 H 144 H 168 H Lactic Acid (0.4 - 1.9 mmol/L) 2.2 H Calcium (8.0 - 10.5 mg/dL) 8.7 Magnesium (1.80 - 2.40 mg/dL) 2.45 H Total Bilirubin (0.0 - 1.0 mg/dL) 1.00 Direct Bilirubin (0.0 - 0.30 MG/DL) 0.40 H Indirect Bilirubin (MG/DL) 0.60 AST (15 - 37 IUnit/L) 44 H ALT (30 - 65 IUnit/L) 11 L Total Alk Phosphatase (20 - 125 IUnit/L) 47 Total Protein (6.4 - 8.2 g/dL) 5.5 L Albumin (3.4 - 5.0 g/dL) 3.20 L 12/19 12/19 12/19 12/19 12/19 1049 1020 0945 0915 0839 Chemistry POC Creatinine (0.6 - 1.0 mg/dL) 0.9 0.9 1.0 0. 9 0.9 POC Glucose (mg/dL) (70 - 110 MG/DL) 180 H 197 H 193 H 208 H 244 H 12/19 12/19 0734 0440 Chemistry Sodium (134 - 147 mEq/L) 143 Potassium (3.4 - 5.0 mEq/L) 4.8 Chloride (100 - 108 mEq/L) 105 Carbon Dioxide (21 - 33 mEq/l) 32 Anion Gap (0 - 20) 11 BUN (7 - 18 mg/dL) 16 Creatinine (0.6 - 1.3 mg/dL) 0.9 POC Creatinine (0.6 - 1.0 mg/dL) 1.0 Glomerular Filtr Rate (70 - 80) 60.6 L Glucose (70 - 110 mg/dL) 136 H POC Glucose (mg/dL) (70 - 110 MG/DL) 257 H Calcium (8.0 - 10.5 mg/dL) 9.7 Total Bilirubin (0.0 - 1.0 mg/dL) 0.50 AST (15 - 37 IUnit/L) 16 ALT (30 - 65 IUnit/L) 11 L Total Alk Phosphatase (20 - 125 IUnit/L) 71 Total Protein (6.4 - 8.2 g/dL) 7.4 Albumin (3.4 - 5.0 g/dL) 3.80 Laboratory Tests 12/19 12/19 12/19 12/19 12/19 1257 1125 1051 1027 0947 Coagulation INR (0.8 - 1.2) 1.5 H PTT ([place]) (25.0 - 39.5 Seconds) 24.4 L PT Patient/Control Mix (9.3 - 12.9 16.7 H SECONDS) Activated Coag Time (74 - 137 SEC) 115 491 H 51 5 H 642 H 12/19 12/19 12/19 12/19 12/19 0918 0840 0737 0440 0440 Coagulation INR (0.8 - 1.2) 1.2 PTT (Tk) (25.0 - 39.5 Seconds) 31.1 PT Patient/Control Mix (9.3 - 12.9 13.5 H SECONDS) Activated Coag Time (74 - 137 SEC) 746 H 740 H 138 H Laboratory Tests 12/19 12/19 1257 0440 Hematology WBC (4.5 - 11.0 x10 3/uL) 7.8 4.9 RBC (3.54 - 5.02 x10 6/uL) 2.37 L 3.11 L Hgb (11.0 - 15.0 g/dL) 9.3 L 11.0 Hct (33.0 - 45.0 %) 26.5 L 34.5 MCV (81.0 - 99.0 fL) 111.8 H 110.9 H MCH (27.0 - 33.0 pg) 39.2 H 35.4 H MCHC (33.0 - 37.0 g/dL) 35.1 31.9 L RDW (11.5 - 14.5 %) 15.8 H 15.9 H Plt Count (150 - 400 x10 3/uL) 76 L 118 L MPV (7.0 - 9.0 fL) 10.9 H 12.0 H Neut % (Auto) (56.0 - 77.0 %) 87.6 H 82.5 H Lymph % (Auto) (14.0 - 32.0 %) 3.1 L 5.7 L Barron % (Auto) (4.8 - 9.0 %) 8.3 10.4 H Eos % (Auto) (0.3 - 3.7 %) 0.1 L 0.8 Baso % (Auto) (0.0 - 2.0 %) 0.1 0.2 Neut # (Auto) (2.0 - 7.6 x10 3/uL) 6.83 4.06 Lymph # (Auto) (1.0 - 3.8 x10 3/uL) 0.24 L 0.28 L Barron # (Auto) (0.1 - 0.8 x10 3/uL) 0.65 0.51 Eos # (Auto) (0.0 - 0.2 x10 3/uL) 0.01 0.04 Baso # (Auto) (0.0 - 0.2 x10 3/uL) 0.01 0.01 Abs Immat Gran (auto) (0.00 - 0.03 x10 3/uL) 0. 06 H 0.02 Add Manual Diff NO NO Immature Gran % (0.0 - 2.0 %) 0.8 0.4 Nucleated RBC % (0 - 0 %) 0.0 0.0 Nucleated RBCs # (Man) (0.0 - 0.1 x10 3/uL) 0.0 0 0.00 Platelet Estimate (ADEQUATE THOUSAND) 76-95 Polychromasia 1+ Anisocytosis 1+ Macrocytosis 1+ Radiology data: Recent Impressions: RADIOLOGY - XR CHEST 1 V 12/19 1315 Report Impression - Status: SIGNED Entered: 12/19/2021 1516 IMPRESSION: 1. There are patchy opacities throughout the dahlia gs, which could represent atelectasis. 2. Increased interstitial markings, which could represent pulmonary edema. Impression By: [email or web address] - Enrico Wang RADIOLOGY - XR CHEST 1 V 12/19 1336 Report Impression - Status: SIGNED Entered: 12/19/2021 1403 IMPRESSION: 1. No retained metallic structure resembling a s urgical needle in the chest or visualized upper abdomen. 2. Line and tube positions as described. 3. Satisfactory postoperative appearance of the mediastinum with no visible procedural complication. 4. Bilateral platelike atelectasis and central/b ibasilar pulmonary opacities, probably representing atelectasis and or secretions. Findings were conveyed to the Surgical team at 1 2:30 p.m. Impression By: [email or web address] - Jonathan vinson M.D. Diagnosis, Assessment Plan Consultants: cardiology, cardiovascular surgery Free Text DxA P Notes Free text DxA P notes: 76 years old female with PMH of macular degeneration, obesity, obstructive sleep apnea (CPAP at home), former smoker, hypertensio n, hyperlipidemia, diabetes, Crohn's disease, chronic atr ial fibrillation status post 3 ablations in the past (on Xarelto), pacemaker placement CAD -- multiple vesssels HTN DM HLD Crohn's disease chronic atrial fibrillation status post 3 ablati ons macular degeneration obesity obstructive sleep apnea acute respiratory failure --post surgery severe mitral valve regurgitation constrictive pericarditis CAD -- cardiology consult CV surgeon consult CABG -- AM ASA/lipitor afib -- rate control -- hold xarelto for surgery HTN-- continue home med DM-- on lantus -- sliding scale HLD-- on lipitor RONA--cpap as need DVTP -- heparin 12/18- feel sob -- CABG -- afternoon 12/19--post MVR (31 Magna valve), CABG x 1 (ROBERTS- LAD), ILAA and pericardectomy -- she remain intubated on the vent -- chest tube are in place -on levophed and epinephrine drip -- monitor in CCU review all image and consultants notes Current Medications Sig/Fabby Start time Last Medication Dose Route Stop Time Status Admin Amlodipine Besylate 5 MG DAILY 12/18 899 AC PO 01/17 08 Furosemide 10 MG DAILY 12/18 899 AC PO 01/17 08 Lisinopril 40 MG DAILY 12/18 899 AC PO 01/16 1214 Losartan Potassium 100 MG DAILY 12/18 899 AC PO 01/17 08 Metolazone 10 MG DAILY 12/18 899 AC PO 01/17 0859 Pantoprazole 40 MG DAILY@0600 12/18 599 AC PO 01/17 0559 Cefazolin Sodium 3 GM PREOP ONCALL 12/18 0500 C KD Sodium Chloride 250 ML IV 12/18 235 Metoprolol Tartrate 6.25 MG ONCE ONE 12/18 499 AC PO 12/18 0501 Vancomycin HCl 1,750 MG PREOP ONCALL 12/18 050 0 DC Sodium Chloride 500 ML IV 12/18 235 Vancomycin HCl 1,750 MG PREOP ONCALL 12/18 0500 CKD Sodium Chloride 500 ML IV 12/25 0459 Verapamil HCl 16.6 MG .Q24H ONE 12/18 0500 CKD Heparin Sodium 1,660 UNIT IV 12/19 045 (Porcine) Sodium Bicarbonate 0.7 ML Nitroglycerin/ 8.3 MG Dextrose Lactated Ringer's 949.5 ML Clonidine HCl 0.3 MG BID 12/17 2099 AC PO 01/16 2059 Doxazosin Mesylate 4 MG BEDTIME 12/17 2099 AC PO 01/16 2059 Insulin Glargine 50 UNIT BID 12/17 2099 AC SUBQ 01/16 2059 Insulin Human Lispro 0 AC HS 12/17 2099 AC SUBQ 01/16 2059 Pravastatin Sodium 10 MG 2100 12/17 2099 AC PO 01/16 2059 Dextrose/Water 125 ML ASDIR PRN 12/17 1800 CKD IV 01/16 175 Dextrose/Water 250 ML ASDIR PRN 12/17 1800 CKD IV 01/16 175 Glucagon 1 MG ASDIR PRN 12/17 1800 AC IM 01/16 175 Atropine Sulfate 0.5 MG ASDIR PRN 12/17 1200 AC IV 12/18 1158 Sodium Chloride 1,000 ML .[id number] 12/17 1200 A C 12/17 IV 12/17 1839 1404 Sodium Chloride 500 ML ASDIR PRN 12/17 1200 AC IV 12/18 1158 Adenosine 0 .STK-MED ONE 12/17 1052 DC IV Sodium Chloride 50 ML .STK-MED ONE 12/17 1052 D C IV Iopamidol 100 ML .STK-MED ONE 12/17 1034 DC 10/ 05 IV 12/17 1035 1034 Fentanyl Citrate 0 .STK-MED ONE 12/17 1019 DC 1 0/05 .ROUTE 1030 Midazolam HCl 0 .STK-MED ONE 12/17 1019 DC 10/0 5 .ROUTE 1030 Heparin Sodium/ 500 ML .STK-MED ONE 12/17 0949 DC 10/05 Sodium Chloride IV 1030 Heparin Sodium 0 .STK-MED ONE 12/17 0940 DC 10 05 .ROUTE 1030 Heparin Sodium/ 1,000 ML .STK-MED ONE 12/17 094 0 DC 10/05 Sodium Chloride IV 1030 Heparin Sodium/ 500 ML .STK-MED ONE 12/17 0940 DC 10/05 Sodium Chloride IV 1030 Lidocaine HCl 0 .STK-MED ONE 12/17 0940 DC 10/0 5 .ROUTE 1030 Nitroglycerin/ 250 ML .STK-MED ONE 12/17 0940 D C 12/17 Dextrose IV 1030 Verapamil HCl 0 .STK-MED ONE 12/17 0840 DC 10 05 IV 1030 Home Medications: RIVAROXABAN (XARELTO) 20 MG PO DAILY amLODIPine (NORVASC) 5 MG PO DAILY cloNIDine (CATAPRES) 0.3 MG PO BID DOXAZOSIN (CARDURA) LISINOPRIL (ZESTRIL) OLMESARTAN (BENICAR) 40 MG PO DAILY PRAVASTATIN (PRAVACHOL) FUROSEMIDE (LASIX) 10 MG PO DAILY METOLAZONE (ZAROXOLYN) 10 MG PO DAILY POTASSIUM CHLORIDE ER (MICRO-K) 10 MEQ PO DAILY OMEPRAZOLE ER 20 MG PO DAILY GLIMEPIRIDE (AMARYL) 4 MG PO DAILY INSULIN DETEMIR (LEVEMIR FlexTouch (15mL)) 50 UN ITS SUBQ BID INSULIN LISPRO (HumaLOG CARTRIDGE (15mL)) 0 UNIT S SUBQ TID LIRAGLUTIDE (VICTOZA (6mL)) 1.8 MG SUBQ DAILY metFORMIN (GLUCOPHAGE) 1,000 MG PO BID ADALIMUMAB + SUPPLIES (HUMIRA PREFILLED PEN) 40 MG SUBQ Q14D azaTHIOprine (IMURAN) 50 MG PO DAILY Quality: Gen Med Crit Care Current Medications Current medication review: Home Medications: RIVAROXABAN (XARELTO) 20 MG PO DAILY amLODIPine (NORVASC) 5 MG PO DAILY cloNIDine (CATAPRES) 0.3 MG PO BID DOXAZOSIN (CARDURA) LISINOPRIL (ZESTRIL) OLMESARTAN (BENICAR) 40 MG PO DAILY PRAVASTATIN (PRAVACHOL) FUROSEMIDE (LASIX) 10 MG PO DAILY METOLAZONE (ZAROXOLYN) 10 MG PO DAILY POTASSIUM CHLORIDE ER (MICRO-K) 10 MEQ PO DAILY OMEPRAZOLE ER 20 MG PO DAILY GLIMEPIRIDE (AMARYL) 4 MG PO DAILY INSULIN DETEMIR (LEVEMIR FlexTouch (15mL)) 50 UN ITS SUBQ BID INSULIN LISPRO (HumaLOG CARTRIDGE (15mL)) 0 UNIT S SUBQ TID LIRAGLUTIDE (VICTOZA (6mL)) 1.8 MG SUBQ DAILY metFORMIN (GLUCOPHAGE) 1,000 MG PO BID ADALIMUMAB + SUPPLIES (HUMIRA PREFILLED PEN) 40 MG SUBQ Q14D azaTHIOprine (IMURAN) 50 MG PO DAILY I attest that the foregoing medication list in t medical record is true, accurate, and complete to the best of my knowled ge. Electronically Signed by Meryl Rsoa MD on 2 at 2106 [facility] #:[id number] END OF REPORT 2021-12-19 12:08:00-00:00 [id number] [place] [id number] PATIENT NAME: SAÚL GILES ADMIT DATE: 12/17/21 ACCOUNT NO: [id number] ROOM NO: G.220 AGE: 76 REPORT TYPE: eECHOCARDIOGRAM REPORT SEX: F ADMITTING PHYSICIAN:Jeffry More MD ATTENDING PHYSICIAN:Jeffry More MD *[place] [address] Transthoracic Echocardiogram Patient: Saúl Giles Study Date: 12/17/2021 BP: 135 / 63 Location: [facility] URN: [id number] : 1945 Age: 76 Height: 64 in / 162.6 cm Gender: F Weight: 265 .4 lb / 120.7 kg BMI/BSA: 45.7 kg/m 2 / 2.21 m 2 *Ordering Physician: * Kena Macedo *Interpreting Physician: * Aruna Fortune MD *Con[employer] Stone Fabricator: * Noemí Cotton Indications: CARDIAC SURGERY PRE-OP. Study data: Transthoracic echocardiogram. Proced ure: Transthoracic echocardiography was performed. Images were obta ined using a [a]list games cardiac ultrasound machine. The study was technically li mited due to poor acoustic window availability. Complete 2D, compl ete spectral Doppler, and color Doppler. Location: Bedside. Patient st atus: Inpatient. Patient room number: 3341. Study status: Routine . Findings Left ventricle: The cavity size is normal. Wall thickness is normal. Systolic function is normal. The estimated eject ion fraction is 50-54%. Wall motion is normal; there are no regional wal l motion abnormalities. Left ventricular diastolic function parameters a re indeterminate. Right ventricle: The cavity size is normal. Pace r wire noted in the PATIENT NAME: SAÚL GILES 332 right ventricle. Systolic function is low normal . Left atrium: The atrium is mildly dilated. Right atrium: The atrium is dilated. Pacer wire noted in right atrium. Aorta: Aortic root: The aortic root is normal in size. Aortic valve: The valve is structurally normal. The valve is trileaflet. There is no evidence of stenosis. Th ere is no regurgitation. Mitral valve: The valve is structurally normal. The findings are consistent with stenosis. There is mild to moder ate regurgitation. Tricuspid valve: The valve is structurally ramirez l. There is mild-moderate regurgitation. Pulmonic valve: The valve is structurally normal . There is no regurgitation. Pericardium: A trivial pericardial effusion is i dentified. Pulmonary arteries: The main pulmonary artery is normal-sized. Systemic veins: Inferior vena cava: The vessel is dilated. Measurements Left ventricle Value Ref ZEHRA, LAX 5.0 cm 3.8 - 5.2 ESD, LAX 3.3 cm 2.2 - 3.5 ESD/bsa, LAX 1.5 cm/m 2 1.3 - 2.1 FS, LAX 34 % 27 - 45 ESD/bsa major 3.0 cm/m 2 --------- ax, A4C ZEHRA/bsa minor 3.0 cm/m 2 --------- ax, A4C ZEHRA major ax, 8.5 cm --------- A2C ESD major ax, 7.2 cm --------- A2C ZEHRA/bsa major 3.9 cm/m 2 --------- ax, A2C ESD/bsa major 3.3 cm/m 2 --------- ax, A2C PW, ED 1.3 cm 0.6 - 0.9 IVS/PW, ED 0.82 --------- EF 63 % 54 - 74 E', lat sim, 4.9 cm/sec >=10.0 TDI E/e', lat sim, 32 --------- TDI E', med sim, 4.2 cm/sec >=7.0 TDI E/e', med sim, 37 --------- TDI E', avg, TDI 4.6 cm/sec --------- E/e', avg, TDI 34 <=14 LVOT Value Ref PATIENT NAME: SAÚL GILES 332 Diam, S 1.97 cm --------- Area 3.1 cm 2 --------- Peak jana, S 1.42 m/sec --------- Mean jana, S 0.81 m/sec --------- VTI, S 28.5 cm --------- Peak grad, S 8 mm Hg --------- Mean grad, S 3 mm Hg --------- SV 65 ml --------- Qs 4.52 L/min --------- Qs/bsa 2 L/(min-m 2) --------- SV/bsa 29 ml/m 2 --------- Ventricular septum Value Ref IVS, ED 1.1 cm 0.6 - 0.9 Right ventricle Value Ref TAPSE, MM 1.6 cm 1.7 - 3.1 RVOT Value Ref Peak v, S 0.94 m/sec --------- Peak grad, S 4 mm Hg --------- Left atrium Value Ref AP dim, ES 4.36 cm 2.70 - 3.80 Vol/bsa, ES, 37 ml/m 2 11 - 40 1-p A4C Vol, ES, 2-p 86 ml --------- Vol/bsa, ES, 39 ml/m 2 16 - 34 2-p Vol/bsa, ES, 39 ml/m 2 16 - 34 A/L Right atrium Value Ref Area, ES 22 cm 2 10 - 18 SI dim, ES, A4C 5.6 cm 3.4 - 5.3 SI dim/bsa, ES, 2.6 cm/m 2 1.9 - 3.1 A4C Vol, ES, A/L 74 ml --------- Vol, ES, 1-p 70 ml --------- A4C Vol/bsa, ES, 32 ml/m 2 9 - 33 1-p A4C Aortic valve Value Ref Peak v, S 1.97 m/sec --------- Mean v, S 1.39 m/sec --------- VTI, S 38.1 cm --------- Mean grad, S 8.8 mm Hg --------- Peak grad, S 15.5 mm Hg --------- LVOT/AV, VTI 0.75 --------- ratio ARABELLA, VTI 2.53 cm 2 --------- LVOT/AV, Vpeak 0.72 --------- PATIENT NAME: SAÚL GILES 332 ratio ARABELLA, Vmax 2.40 cm 2 --------- Mitral valve Value Ref Peak E 0.05 m/sec --------- Peak A 0.39 m/sec --------- Mean v, D 0.9 m/sec --------- VTI leaflet 45.3 cm --------- coapt Decel time 223 ms --------- PHT 80 ms --------- Mean grad, D 4.5 mm Hg --------- Peak grad, D 14.0 mm Hg --------- Peak E/A ratio 4.05 --------- MVA, PHT 2.7 cm 2 --------- MR peak v 5.41 m/sec --------- Pulmonic valve Value Ref NE v, ED 0.69 m/sec --------- Tricuspid valve Value Ref TR peak v 3.34 m/sec <=2.8 Peak RV-RA 45 mm Hg --------- grad, S Aortic root Value Ref Root diam 2.6 cm <4.3 Conclusions Summary: 1. Left ventricle: The cavity size is normal. Wa ll thickness is normal. Systolic function is normal. The estimated ejec tion fraction is 50-54%. Wall motion is normal; there are no reg ional wall motion abnormalities. Left ventricular diastolic funct ion parameters are indeterminate. 2. Left atrium: The atrium is mildly dilated. 3. Right atrium: The atrium is dilated. 4. Mitral valve: There is mild to moderate regur gitation. 5. Tricuspid valve: There is mild-moderate regur gitation. 6. Pericardium, extracardiac: A trivial pericard ial effusion is identified. 7. Inferior vena cava: The vessel is dilated. Prepared and electronically signed by Aruna Fortune MD 12/19/2021 12:08 PATIENT NAME: SAÚL GILES 332 Electronically Signed by Aruna Fortune MD on 1 at 1208 PATIENT NAME: SAÚL GILES 332 2021-12-18 14:37:00-00:00 [facility] RE[facility]#:[id number] REPORT STATUS: Signed DATE:12/18/21 TIME: 1437 PATIENT: SAÚL GILES UNIT #: [id number] ROOM/BED: [place] [address] : 43 AGE: 76 SEX: F ATTEND: Ayala More MD ADM AUTHOR: Kena Macedo P * ALL edits or amendments must be made on the el oLyferonic/computer document * Subjective Chief complaint: Shortness of breath Review of Systems Constitutional: Denies: fever, malaise. Allergy/Immun: Denies: allergic reaction. ENT: Denies: sore throat. Respiratory: Denies: SOB. GI: Denies: abdominal pain, nausea, vomiting. Heme: Denies: bleeding. Neuro: Denies: focal weakness, headache. Objective General VS/I O Last Documented: Result Date Time Pulse Ox 93 12/18 1125 B/P 159/85 12/18 1125 B/P Mean 109.7 12/18 1125 O2 Delivery Nasal cannula 12/18 1125 O2 Flow Rate 3 12/18 1125 Temp 97.7 12/18 1125 Pulse 75 12/18 1125 Resp 12 12/18 1125 24 hour I O ending at 0700: 12/18 0700 12/17 1900 Intake Total 240 Output Total 800 Balance -560 Intake, Oral 240 Number 1 Bowel Movements Output, Urine 800 PATIENT WEIGHT: Weight (lb): 266 Weight (oz): 12.15 Weight (kg): 121.000 Physical Exam General appearance: obese, alert, oriented, plea marianela HEENT: anicteric Neck: supple/no meningismus Cardiovascular: normal heart sounds, regular rat e rhythm Respiratory: aerating well, symmetric expansion, no distress Abdomen: soft, non-tender, no distention Extremities: moves all 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, 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, normal speech Psychiatry: normal affect, normal mood Current Medications Medications: Active Meds + DC'd Last 24 Hrs Heparin Sodium (HEPARIN SODIUM) 0 .STK-MED ONE .ROUTE (DC) Papaverine HCl (PAPAVERINE HCL) 0 .STK-MED ONE I V (DC) Calcium Chloride (CALCIUM CHLORIDE) 0 .STK-MED O NE IV (DC) Epinephrine/Dextrose (Epinephrine 5MG/D5W 250ML) 250 ML .STK-MED ONE IV (DC) Insulin Human Regular (HumuLIN R 100 UNITS/NS 10 0ML) 100 ML .STK-MED ONE IV (DC) Nitroglycerin/Dextrose (NITROGLYCERIN 50,000MCG/ D5W 250ML) 250 ML .STK-MED ONE IV (DC) Norepinephrine Bitartrate (NOREPINEPHRINE 8 MG/N S 250 ML) 250 ML .STK-MED ONE IV (DC) Magnesium Sulfate (MAGNESIUM SULFATE) 0 .STK-MED ONE .ROUTE (DC) Ropivacaine (NAROPIN 0.5% 150 MG/30mL) 0 .STK-ME D ONE .ROUTE (DC) Aminocaproic Acid (AMICAR) 0 .STK-MED ONE IV (D C) Heparin Sodium (HEPARIN SODIUM) 0 .STK-MED ONE . ROUTE (DC) Propofol (DIPRIVAN 200MG/20ML INJECTION) 20 ML . STK-MED ONE IV (DC) Dexamethasone Sodium Phosphate (DECADRON) 0 .STK -MED ONE .ROUTE (DC) Fentanyl Citrate (SUBLIMAZE) 0 .STK-MED ONE IV ( DC) Lidocaine HCl (XYLOCAINE) 0 .STK-MED ONE .ROUTE (DC) Midazolam HCl (VERSED) 0 .STK-MED ONE .ROUTE (DC ) Ondansetron HCl (ZOFRAN) 0 .STK-MED ONE .ROUTE ( DC) Rocuronium [place] (ZEMURON) 0 .STK-MED ONE IV ( DC) Albumin Human (ALBUMINAR-25%) 100 ML .STK-MED ON E IV (DC) Heparin Sodium (HEPARIN SODIUM) 0 .STK-MED ONE . ROUTE (DC) Lidocaine HCl (XYLOCAINE IV) 0 .STK-MED ONE IV ( DC) Mannitol (MANNITOL 25% 12.5GM/50ML) 0 .STK-MED O NE IV (DC) Sodium Bicarbonate (SODIUM BICARBONATE) 0 .STK-M ED ONE IV (DC) Sodium Chloride (SODIUM CHLORIDE 0.9%) 100 ML . STK-MED ONE IV (DC) Magnesium Sulfate (MAGNESIUM SULFATE) 0 .STK-MED ONE IV (DC) Phenylephrine HCl (TAMI-SYNEPHRINE 10MG/ML AMP) 0 .STK-MED ONE .ROUTE (DC ) Cefazolin Sodium (KEFZOL OR ANCEF) 0 .STK-MED ON E .ROUTE (DC) Metoprolol Tartrate (LOPRESSOR) 6.25 MG PREOP ON CE ONE PO (DC) Vancomycin HCl (VANCOMYCIN HCL) 1,750 MG PREOP ONCALL IV (CKD) Sodium Chloride (SODIUM CHLORIDE 0.9%) 500 ML Verapamil HCl (ISOPTIN) 16.6 MG PREOP ONCALL IV (CKD) Heparin Sodium (Porcine) (HEPARIN SODIUM) 1,660 UNIT Sodium Bicarbonate (SODIUM BICARBONATE) 0.7 ML Nitroglycerin/Dextrose (NITROGLYCERIN 50MG/D5W 250ML) 8.3 MG Lactated Ringer's (LACTATED RINGERS) 949.5 ML Atorvastatin Calcium (LIPITOR) 40 MG 2100 PO Ceftriaxone Sodium (ROCEPHIN 1000MG VIAL) 1,000 MG Q24H IV Sodium Chloride (SODIUM CHLORIDE) 10 ML Acetaminophen (TYLENOL EXTRA STRENGTH) 1,000 MG PREOP ONCALL PO (CKD) Gabapentin (NEURONTIN) 200 MG PREOP ONCALL PO (C KD) Ondansetron HCl (ZOFRAN) 4 MG Q6H PRN PRN IV Amlodipine Besylate (NORVASC) 5 MG DAILY PO Acetaminophen (TYLENOL EXTRA STRENGTH) 1,000 MG PREOP ONCALL PO (CKD) Gabapentin (NEURONTIN) 200 MG PREOP ONCALL PO (C KD) Pantoprazole (PROTONIX) 40 MG DAILY@0600 PO Cefazolin Sodium (KEFZOL OR ANCEF) 3 GM PREOP 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 IV (DC) Sodium Chloride (SODIUM CHLORIDE 0.9%) 250 ML Vancomycin HCl (VANCOMYCIN HCL) 1,750 MG PREOP O NCALL IV (CKD) Sodium Chloride (NS 0.9%) 500 ML Verapamil HCl (ISOPTIN) 16.6 MG .Q24H ONE IV (DC ) Heparin Sodium (Porcine) (HEPARIN SODIUM) 1,660 UNIT Sodium Bicarbonate (SODIUM BICARBONATE) 0.7 ML Nitroglycerin/Dextrose (NITROGLYCERIN 50MG/D5W 250ML) 8.3 MG Lactated Ringer's (LACTATED RINGERS) 949.5 ML Clonidine HCl (CATAPRES) 0.3 MG BID PO Doxazosin Mesylate (CARDURA) 4 MG BEDTIME PO Insulin Glargine (Lantus/Semglee) 50 UNIT BID [place] BQ Insulin Human Lispro (HUMALOG) 0 AC HS SUBQ Pravastatin Sodium (PRAVACHOL) 10 MG 2100 PO (DC ) Dextrose/Water (DEXTROSE 10% IN WATER) 125 ML DIR PRN IV (CKD) Dextrose/Water (DEXTROSE 10% IN WATER) 250 ML DIR PRN IV (CKD) Glucagon (GLUCAGON) 1 MG ASDIR PRN IM Atropine Sulfate (ATROPINE SULFATE 0.1MG/ML SYR) 0.5 MG ASDIR PRN IV (DC ) Sodium Chloride (SODIUM CHLORIDE 0.9%) 500 ML DIR PRN IV (DC) Results Findings/Data: Laboratory Tests 12/1945 [id number] Blood Gas O2 Saturation (90 - 100 %) 100.0 100.0 99.9 100 .0 ABG pH (7.35 - 7.45) 7.532 *H 7.473 H 7.421 7.4 39 ABG pCO2 (35.0 - 45 mmHg) 36.8 41.7 42.1 38.6 ABG pO2 (80 - 100.0 mmHg) 427.8 *H 447.6 *H 349 .7 *H 482.6 *H ABG HCO3 (22.0 - 26.0 MMOL/L) 30.8 *H 30.6 *H 27.4 H 26.2 H ABG Total CO2 32.0 31.9 28.7 27.3 ABG Base Excess (-4.0 - 4.0 MMOL/L) 7.7 H 6.4 H 2.6 1.9 ABG Hematocrit (33.0 - 45.0 %) 27 L 27 L 30 L 2 8 L ABG Hemoglobin (11.0 - 15.0 G/DL) 9.2 L 9.2 L 1 0.3 L 9.5 L Sodium (134 - 147 MEQ/L) 143 143 142 143 Potassium (3.4 - 5.0 MEQ/L) 4.5 4.9 4.2 4.3 Chloride (100 - 108 MEQ/L) 103 102 101 104 Ionized Calcium (1.12 - 1.32 MMOL/L) 1.17 1.13 1.16 1.13 Lactic Acid (0.9 - 1.7 mmol/l) 1.3 1.2 1.1 2.0 H Laboratory Tests 12/19 12/19 12/19 12/19 12/19 0945 0915 0839 0742 1147 Chemistry Sodium (134 - 147 mEq/L) 143 Potassium (3.4 - 5.0 mEq/L) 4.8 Chloride (100 - 108 mEq/L) 105 Carbon Dioxide (21 - 33 mEq/l) 32 Anion Gap (0 - 20) 11 BUN (7 - 18 mg/dL) 16 Creatinine (0.6 - 1.3 mg/dL) 0.9 POC Creatinine (0.6 - 1.0 mg/dL) 1.0 0.9 0.9 1. 0 Glomerular Filtr Rate (70 - 80) 60.6 L Glucose (70 - 110 mg/dL) 136 H POC Glucose (mg/dL) (70 - 110 MG/DL) 193 H 208 H 244 H 257 H Calcium (8.0 - 10.5 mg/dL) 9.7 Total Bilirubin (0.0 - 1.0 mg/dL) 0.50 AST (15 - 37 IUnit/L) 16 ALT (30 - 65 IUnit/L) 11 L Total Alk Phosphatase (20 - 125 71 IUnit/L) Total Protein (6.4 - 8.2 g/dL) 7.4 Albumin (3.4 - 5.0 g/dL) 3.80 12/18 12/18 12/18 1922 1556 1125 Chemistry POC Glucose (70 - 110 MG/DL) 260 H 226 H 148 H Laboratory Tests 12/19 12/19 12/19 12/19 0918 0840 0737 0440 Coagulation INR (0.8 - 1.2) 1.2 PT Patient/Control Mix (9.3 - 12.9 SECONDS) 13. 5 H Activated Coag Time (74 - 137 SEC) 746 H 740 H 138 H 12/19 0440 Coagulation PTT (Tk) (25.0 - 39.5 Seconds) 31.1 Laboratory Tests 12/19 0440 Hematology WBC (4.5 - 11.0 x10 3/uL) 4.9 RBC (3.54 - 5.02 x10 6/uL) 3.11 L Hgb (11.0 - 15.0 g/dL) 11.0 Hct (33.0 - 45.0 %) 34.5 MCV (81.0 - 99.0 fL) 110.9 H MCH (27.0 - 33.0 pg) 35.4 H MCHC (33.0 - 37.0 g/dL) 31.9 L RDW (11.5 - 14.5 %) 15.9 H Plt Count (150 - 400 x10 3/uL) 118 L MPV (7.0 - 9.0 fL) 12.0 H Neut % (Auto) (56.0 - 77.0 %) 82.5 H Lymph % (Auto) (14.0 - 32.0 %) 5.7 L Barron % (Auto) (4.8 - 9.0 %) 10.4 H Eos % (Auto) (0.3 - 3.7 %) 0.8 Baso % (Auto) (0.0 - 2.0 %) 0.2 Neut # (Auto) (2.0 - 7.6 x10 3/uL) 4.06 Lymph # (Auto) (1.0 - 3.8 x10 3/uL) 0.28 L Barron # (Auto) (0.1 - 0.8 x10 3/uL) 0.51 Eos # (Auto) (0.0 - 0.2 x10 3/uL) 0.04 Baso # (Auto) (0.0 - 0.2 x10 3/uL) 0.01 Abs Immat Gran (auto) (0.00 - 0.03 x10 3/uL) 0 .02 Add Manual Diff NO Immature Gran % (0.0 - 2.0 %) 0.4 Nucleated RBC % (0 - 0 %) 0.0 Nucleated RBCs # (Man) (0.0 - 0.1 x10 3/uL) 0.0 0 Quality: Trauma Gen Surg Current Medications Current medication review: Home Medications: RIVAROXABAN (XARELTO) 20 MG PO DAILY amLODIPine (NORVASC) 5 MG PO DAILY cloNIDine (CATAPRES) 0.3 MG PO BID DOXAZOSIN (CARDURA) LISINOPRIL (ZESTRIL) OLMESARTAN (BENICAR) 40 MG PO DAILY PRAVASTATIN (PRAVACHOL) FUROSEMIDE (LASIX) 10 MG PO DAILY METOLAZONE (ZAROXOLYN) 10 MG PO DAILY POTASSIUM CHLORIDE ER (MICRO-K) 10 MEQ PO DAILY OMEPRAZOLE ER 20 MG PO DAILY GLIMEPIRIDE (AMARYL) 4 MG PO DAILY INSULIN DETEMIR (LEVEMIR FlexTouch (15mL)) 50 UN ITS SUBQ BID INSULIN LISPRO (HumaLOG CARTRIDGE (15mL)) 0 UNIT S SUBQ TID LIRAGLUTIDE (VICTOZA (6mL)) 1.8 MG SUBQ DAILY metFORMIN (GLUCOPHAGE) 1,000 MG PO BID ADALIMUMAB + SUPPLIES (HUMIRA PREFILLED PEN) 40 MG SUBQ Q14D azaTHIOprine (IMURAN) 50 MG PO DAILY I attest that the foregoing medication list in t he medical record is true, accurate, and complete to the best of my knowled ge. Diagnosis, Assessment Plan Hospital course to date: This very pleasant 76-year-old female, from [facility], with past medical history of macular d egeneration, obesity, obstructive sleep apnea (CPAP at home), former smoker, hyp ertension, hyperlipidemia, diabetes, Crohn's disease , chronic atrial fibrillatio n status post 3 ablations in the past (on Xarelto), pacemaker placement who had a recent admission t o the hospital with heart failure symptoms. She has be en admitted to the hospital today for elective heart cath. Coronary angiogram showed severe multivess el coronary artery disease suitable for percutaneous intervention. CV surge ry called for evaluation. PLAN Patient has severe coronary artery disease and c onstrictive pericarditis. She will benefit from off-pump L CHAD to LAD and pericardiotomy. Dr. Romero explained to the patient the surgery, risks involv ed, STS score, benefits, complications and alternatives. She acknowledged understanding and is willing to proceed Preop work-up has been initiated We will tentatively schedule patient for surgery tomorrow. 12/18 Preop assessment ongoing No carotid stenosis on ultrasound CT chest reviewed with Dr. Romero Surgery rescheduled for tomorrow NPO after midnight Plan discussed with the patient Consultants: cardiology, cardiovascular surgery at 1032 at 1736 RPT #:[id number] END OF REPORT 2021-12-18 11:01:00-00:00 [facility] ([facility]) Hospitalist Progress Note REPORT#:[id number] REPORT STATUS: Signed DATE:12/18/21 TIME: 1101 PATIENT: SAÚL GIELS UNIT #: [id number] ROOM[place]BED: [facility] [place]-1 : 43 AGE: 76 SEX: F ATTEND: Leah More MD ADM AUTHOR: Meryl Rosa MD * ALL edits or amendments must be made on the el oLyferonic/computer document * Subjective Chief complaint: she feel sob . CABG today HPI: 76 years old female with PMH of macular degeneration, obesity, obstructive sleep apnea (CPAP at home), former smoker, hypertensio n, hyperlipidemia, diabetes, Crohn's disease, chronic atr ial fibrillation status post 3 ablations in the past (on Xarelto), pacemaker plac ement is admitted to the hospital post cardiac cath . she need CABG . she had sob for years . sob go t worse . she was admitted to the hospital in [place] . she had cath 3 we eks ago . she was reffered to here for stents placement . she had cath yesterd ay . it show multiple vessels CAD . she is recommend CABG . she still feel sob . no cp no nausea no vomiting no fever no abdominal pain no dizziness . Review of Systems Constitutional: Denies: fatigue, fever, generalized weakness, le thargy. ENT: Denies: sore throat. Respiratory: Reports: DOUGLASS (dyspnea on exertion), non producti ve cough, SOB. Denies: wheezing. Cardiovascular: Reports: DOUGLASS (dyspnea on exertion), edema. Denie s: chest pain, orthopnea, palpitations. GI: Denies: abdominal pain, nausea, vomiting. : Denies: flank pain. Neuro: Denies: dizziness. Objective General VS/I O: Vital Signs: Date Time Temp Pulse Resp B/P B/P Pulse O2 O2 F low FiO2 Mean Ox Delivery Rate 12/18 0800 Nasal 2 cannula 12/18 0748 36.4 70 12 141/80 100.3 96 12/18 0424 36.5 74 20 132/75 94.1 95 Nasal cannula 12/17 2317 36.6 73 20 145/83 104.0 98 Room air 12/17 2246 Nasal 2 cannula 12/17 1919 36.6 70 20 147/78 101.3 93 Nasal cannula 12/17 1329 36.4 45 16 135/63 86.6 97 Nasal cannula 12/17 1300 Nasal 2 cannula 12/17 1156 Nasal 2 cannula 24 hour I O ending at 0700: 12/18 0700 12/17 1900 Intake Total 240 Output Total 800 Balance -560 Intake, Oral 240 Number 1 Bowel Movements Output, Urine 800 PATIENT WEIGHT: Weight (lb): 266 Weight (oz): 12.15 Weight (kg): 121.000 Medications: Active Meds + DC'd Last 24 Hrs Atorvastatin Calcium (LIPITOR) 40 MG 2100 PO Amlodipine Besylate (NORVASC) 5 MG DAILY PO Furosemide (LASIX) 10 MG DAILY PO (DC) Lisinopril (ZESTRIL) 40 MG DAILY PO (DC) Losartan Potassium (COZAAR) 100 MG DAILY PO (DC) Metolazone (ZAROXOLYN) 10 MG DAILY PO (DC) Acetaminophen (TYLENOL EXTRA STRENGTH) 1,000 MG PREOP ONCALL PO (CKD) Gabapentin (NEURONTIN) 200 MG PREOP ONCALL PO (C KD) Pantoprazole (PROTONIX) 40 MG DAILY@0600 PO Cefazolin Sodium (KEFZOL OR ANCEF) 3 GM PREOP 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 IV (CKD) Sodium Chloride (SODIUM CHLORIDE 0.9%) 250 ML Metoprolol Tartrate (LOPRESSOR) 6.25 MG ONCE ONE PO (DC) Vancomycin HCl (VANCOMYCIN HCL) 1,750 MG PREOP O NCALL IV (DC) Sodium Chloride (SODIUM CHLORIDE 0.9%) 500 ML Vancomycin HCl (VANCOMYCIN HCL) 1,750 MG PREOP O NCALL IV (CKD) Sodium Chloride (NS 0.9%) 500 ML Verapamil HCl (ISOPTIN) 16.6 MG .Q24H ONE IV (CK D) Heparin Sodium (Porcine) (HEPARIN SODIUM) 1,660 UNIT Sodium Bicarbonate (SODIUM BICARBONATE) 0.7 ML Nitroglycerin/Dextrose (NITROGLYCERIN 50MG/D5W 250ML) 8.3 MG Lactated Ringer's (LACTATED RINGERS) 949.5 ML Clonidine HCl (CATAPRES) 0.3 MG BID PO Doxazosin Mesylate (CARDURA) 4 MG BEDTIME PO Insulin Glargine (Lantus/Semglee) 50 UNIT BID [place] BQ Insulin Human Lispro (HUMALOG) 0 AC HS SUBQ Pravastatin Sodium (PRAVACHOL) 10 MG 2100 PO (DC ) Dextrose/Water (DEXTROSE 10% IN WATER) 125 ML DIR PRN IV (CKD) Dextrose/Water (DEXTROSE 10% IN WATER) 250 ML DIR PRN IV (CKD) Glucagon (GLUCAGON) 1 MG ASDIR PRN IM Atropine Sulfate (ATROPINE SULFATE 0.1MG/ML SYR) 0.5 MG ASDIR PRN IV Sodium Chloride (SODIUM CHLORIDE 0.9%) 1,000 ML .[id number] IV (DC) Sodium Chloride (SODIUM CHLORIDE 0.9%) 500 ML DIR PRN IV Physical Exam General appearance: alert, awake, oriented Head/Eyes: atraumatic, normal conjunctiva/sclera , normal eyelids/periorb., normocephalic Neck: full range of motion, non-tender, no JVD Cardiovascular: normal heart sounds, regular rat e rhythm Respiratory: aerating well, clear to auscultatio n Abdomen: non-tender, normal bowel sounds, soft, no distention Extremities: moves all, no calf tenderness, no e ana 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, 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, CNII-XII intact, normal speech, no motor deficits, no sensory deficits Skin: dry, intact Results Findings/Data: Laboratory Tests 12/18 12/18 12/18 12/17 12/17 0310 0310 0310 1915 1324 Chemistry Sodium (134 - 147 mEq/L) 141 Potassium (3.4 - 5.0 mEq/L) 4.3 Chloride (100 - 108 mEq/L) 105 Carbon Dioxide (21 - 33 mEq/l) 30 Anion Gap (0 - 20) 10 BUN (7 - 18 mg/dL) 12 Creatinine (0.6 - 1.3 mg/dL) 0.8 Glomerular Filtr Rate (70 - 80) 69.4 L Glucose (70 - 110 mg/dL) 147 H POC Glucose (70 - 110 MG/DL) 213 H 140 H Hemoglobin A1c (4.8 - 6.0 %A1C) 6.2 H Calcium (8.0 - 10.5 mg/dL) 9.6 Total Bilirubin (0.0 - 1.0 mg/dL) 0.60 AST (15 - 37 IUnit/L) 17 ALT (30 - 65 IUnit/L) 11 L Total Alk Phosphatase (20 - 125 72 IUnit/L) B-Natriuretic Peptide (0 - 100 PG/ML) 90.0 Total Protein (6.4 - 8.2 g/dL) 7.2 Albumin (3.4 - 5.0 g/dL) 3.70 Triglycerides (40 - 150 mg/dL) 67 Cholesterol (<200 mg/dL) 108 LDL Cholesterol Measurd (0 - 100 66.3 mg/dL) HDL Cholesterol (39 - 96 mg/dL) 33.2 L Cholesterol/HDL Ratio (3.27 - 4.44 3.25 L RATIO) Laboratory Tests 12/18 1106 Coagulation INR (0.8 - 1.2) 1.2 PTT ([place]) (25.0 - 39.5 Seconds) 31.0 PT Patient/Control Mix (9.3 - 12.9 SECONDS) 13. 5 H Activated Coag Time (74 - 137 SEC) 265 H Laboratory Tests 12/18 309 Hematology WBC (4.5 - 11.0 x10 3/uL) 4.0 L RBC (3.54 - 5.02 x10 6/uL) 3.15 L Hgb (11.0 - 15.0 g/dL) 11.0 Hct (33.0 - 45.0 %) 33.9 MCV (81.0 - 99.0 fL) 107.6 H MCH (27.0 - 33.0 pg) 34.9 H MCHC (33.0 - 37.0 g/dL) 32.4 L RDW (11.5 - 14.5 %) 15.9 H Plt Count (150 - 400 x10 3/uL) 116 L MPV (7.0 - 9.0 fL) 11.5 H Neut % (Auto) (56.0 - 77.0 %) 80.1 H Lymph % (Auto) (14.0 - 32.0 %) 8.4 L Barron % (Auto) (4.8 - 9.0 %) 9.4 H Eos % (Auto) (0.3 - 3.7 %) 1.3 Baso % (Auto) (0.0 - 2.0 %) 0.5 Neut # (Auto) (2.0 - 7.6 x10 3/uL) 3.17 Lymph # (Auto) (1.0 - 3.8 x10 3/uL) 0.33 L Barron # (Auto) (0.1 - 0.8 x10 3/uL) 0.37 Eos # (Auto) (0.0 - 0.2 x10 3/uL) 0.05 Baso # (Auto) (0.0 - 0.2 x10 3/uL) 0.02 Abs Immat Gran (auto) (0.00 - 0.03 x10 3/uL) 0. 01 Add Manual Diff NO Immature Gran % (0.0 - 2.0 %) 0.3 Nucleated RBC % (0 - 0 %) 0.0 Nucleated RBCs # (Man) (0.0 - 0.1 x10 3/uL) 0.0 0 Laboratory Tests 12/18 2015 Serology SARS-CoV-2 Ag (Rapid) (Negative) Negative Laboratory Tests 12/18 031 Urines Urine Color (YEL/STRAW) YELLOW Urine Appearance (CLEAR) SL CLOUDY Urine pH (5.0 - 7.0) 5.0 Ur Specific [place] (1.005 - 1.030) 1.032 H Urine Protein (NEGATIVE) NEGATIVE Urine Glucose (UA) (NEGATIVE) NEGATIVE Urine Ketones (NEGATIVE) NEGATIVE Urine Blood (NEGATIVE) NEGATIVE Urine Nitrite (NEGATIVE) NEGATIVE Urine Bilirubin (NEGATIVE) NEGATIVE Urine Urobilinogen (0.2 - 1.0 mg/dL) 0.2 Ur Leukocyte Esterase (NEGATIVE) 3+ H Urine RBC (0 - 3 RBC/HPF) 11-20 Urine WBC (0 - 3 WBC/HPF) 21-50 H Ur Squamous Epith Cells (NONE SEEN /HPF) 11-25 H Urine Bacteria (NONE SEEN /HPF) 1+ H Urine Mucus (NONE SEEN /LPF) TRACE Microbiology Date/Time Procedure - Status Source Growth 12/18 2003 MSSA Surveillance Screen - COMP NASAL 12/18 2003 MRSA DNA Surveillance Screen - COMP NASAL Diagnosis, Assessment Plan Consultants: cardiology, cardiovascular surgery Free Text DxA P Notes Free text DxA P notes: 76 years old female with PMH of macular degeneration, obesity, obstructive sleep apnea (CPAP at home), former smoker, hypertensio n, hyperlipidemia, diabetes, Crohn's disease, chronic atr ial fibrillation status post 3 ablations in the past (on Xarelto), pacemaker placement CAD -- multiple vesssels HTN DM HLD Crohn's disease chronic atrial fibrillation status post 3 ablati ons macular degeneration obesity obstructive sleep apnea CAD -- cardiology consult CV surgeon consult CABG -- AM ASA/lipitor afib -- rate control -- hold xarelto for surgery HTN-- continue home med DM-- on lantus -- sliding scale HLD-- on lipitor RONA--cpap as need DVTP -- heparin 12/18- feel sob -- CABG -- afternoon Current Medications Sig/Fabby Start time Last Medication Dose Route Stop Time Status Admin Amlodipine Besylate 5 MG DAILY 10/06 0900 AC PO 01/17 08 Furosemide 10 MG DAILY 12/18 899 AC PO 01/17 0859 Lisinopril 40 MG DAILY 12/18 899 AC PO 01/16 1214 Losartan Potassium 100 MG DAILY 12/18 899 AC PO 01/17 859 Metolazone 10 MG DAILY 12/18 899 AC PO 01/17 0859 Pantoprazole 40 MG DAILY@0600 12/18 599 AC PO 01/17 0559 Cefazolin Sodium 3 GM PREOP ONCALL 12/18 499 C KD Sodium Chloride 250 ML IV 12/18 235 Metoprolol Tartrate 6.25 MG ONCE ONE 12/18 499 AC PO 12/18 050 Vancomycin HCl 1,750 MG PREOP ONCALL 12/18 499 DC Sodium Chloride 500 ML IV 12/18 2358 Vancomycin HCl 1,750 MG PREOP ONCALL 12/18 499 CKD Sodium Chloride 500 ML IV 12/25 0459 Verapamil HCl 16.6 MG .Q24H ONE 12/18 499 CKD Heparin Sodium 1,660 UNIT IV 12/19 045 (Porcine) Sodium Bicarbonate 0.7 ML Nitroglycerin/ 8.3 MG Dextrose Lactated Ringer's 949.5 ML Clonidine HCl 0.3 MG BID 12/17 2099 AC PO 01/16 2059 Doxazosin Mesylate 4 MG BEDTIME 12/17 2099 AC PO 01/16 2059 Insulin Glargine 50 UNIT BID 12/17 2099 AC SUBQ 01/16 2059 Insulin Human Lispro 0 AC HS 12/17 2099 AC SUBQ 01/16 205 Pravastatin Sodium 10 MG 2100 12/17 2099 AC PO 01/16 205 Dextrose/Water 125 ML ASDIR PRN 12/17 1800 CKD IV 01/16 175 Dextrose/Water 250 ML ASDIR PRN 12/17 1800 CKD IV 01/16 175 Glucagon 1 MG ASDIR PRN 12/17 1800 AC IM 01/16 175 Atropine Sulfate 0.5 MG ASDIR PRN 12/17 1200 AC IV 12/18 1158 Sodium Chloride 1,000 ML .[id number] 12/17 1200 AC 12/17 IV 12/17 1839 1404 Sodium Chloride 500 ML ASDIR PRN 12/17 1200 AC IV 12/18 1158 Adenosine 0 .STK-MED ONE 12/17 1052 DC IV Sodium Chloride 50 ML .STK-MED ONE 12/17 1052 D C IV Iopamidol 100 ML .STK-MED ONE 12/17 1034 DC 10/ 05 IV 12/17 1035 1034 Fentanyl Citrate 0 .STK-MED ONE 12/17 1019 DC 1 0/05 .ROUTE 1030 Midazolam HCl 0 .STK-MED ONE 12/17 1019 DC 10/0 5 .ROUTE 1030 Heparin Sodium/ 500 ML .STK-MED ONE 12/17 0949 DC 10/05 Sodium Chloride IV 1030 Heparin Sodium 0 .STK-MED ONE 12/17 0940 DC 10/ 05 .ROUTE 1030 Heparin Sodium/ 1,000 ML .STK-MED ONE 12/17 094 0 DC 10/05 Sodium Chloride IV 1030 Heparin Sodium/ 500 ML .STK-MED ONE 12/17 0840 DC 10/05 Sodium Chloride IV 1030 Lidocaine HCl 0 .STK-MED ONE 12/17 0940 DC 10/0 5 .ROUTE 1030 Nitroglycerin/ 250 ML .STK-MED ONE 12/17 0840 D C 10 Dextrose IV 1030 Verapamil HCl 0 .STK-MED ONE 12/17 0840 DC 10/0 5 IV 1030 Home Medications: RIVAROXABAN (XARELTO) 20 MG PO DAILY amLODIPine (NORVASC) 5 MG PO DAILY cloNIDine (CATAPRES) 0.3 MG PO BID DOXAZOSIN (CARDURA) LISINOPRIL (ZESTRIL) OLMESARTAN (BENICAR) 40 MG PO DAILY PRAVASTATIN (PRAVACHOL) FUROSEMIDE (LASIX) 10 MG PO DAILY METOLAZONE (ZAROXOLYN) 10 MG PO DAILY POTASSIUM CHLORIDE ER (MICRO-K) 10 MEQ PO DAILY OMEPRAZOLE ER 20 MG PO DAILY GLIMEPIRIDE (AMARYL) 4 MG PO DAILY INSULIN DETEMIR (LEVEMIR FlexTouch (15mL)) 50 UN ITS SUBQ BID INSULIN LISPRO (HumaLOG CARTRIDGE (15mL)) 0 UNIT S SUBQ TID LIRAGLUTIDE (VICTOZA (6mL)) 1.8 MG SUBQ DAILY metFORMIN (GLUCOPHAGE) 1,000 MG PO BID ADALIMUMAB + SUPPLIES (HUMIRA PREFILLED PEN) 40 MG SUBQ Q14D azaTHIOprine (IMURAN) 50 MG PO DAILY Quality: Gen Med Crit Care Current Medications Current medication review: Home Medications: RIVAROXABAN (XARELTO) 20 MG PO DAILY amLODIPine (NORVASC) 5 MG PO DAILY cloNIDine (CATAPRES) 0.3 MG PO BID DOXAZOSIN (CARDURA) LISINOPRIL (ZESTRIL) OLMESARTAN (BENICAR) 40 MG PO DAILY PRAVASTATIN (PRAVACHOL) FUROSEMIDE (LASIX) 10 MG PO DAILY METOLAZONE (ZAROXOLYN) 10 MG PO DAILY POTASSIUM CHLORIDE ER (MICRO-K) 10 MEQ PO DAILY OMEPRAZOLE ER 20 MG PO DAILY GLIMEPIRIDE (AMARYL) 4 MG PO DAILY INSULIN DETEMIR (LEVEMIR FlexTouch (15mL)) 50 UN ITS SUBQ BID INSULIN LISPRO (HumaLOG CARTRIDGE (15mL)) 0 UNIT S SUBQ TID LIRAGLUTIDE (VICTOZA (6mL)) 1.8 MG SUBQ DAILY metFORMIN (GLUCOPHAGE) 1,000 MG PO BID ADALIMUMAB + SUPPLIES (HUMIRA PREFILLED PEN) 40 MG SUBQ Q14D azaTHIOprine (IMURAN) 50 MG PO DAILY I attest that the foregoing medication list in [facility] medical record is true, accurate, and complete to the best of my knowled ge. Electronically Signed by Meryl Rosa MD on 2 at 1104 RPT #:[id number] END OF REPORT 2021-12-18 10:17:00-00:00 [facility] Cardiology Consultation REPORT#:[id number] REPORT STATUS: Signed DATE:12/18/21 TIME: 1017 PATIENT: SAÚL GILES UNIT #: [id number] ROOM/BED: [place] [address] : 43 AGE: 76 SEX: F ATTEND: Leah More MD ADM AUTHOR: Jayna Gonzales NP * ALL edits or amendments must be made on the el oLyferonic/computer document * History of Present Illness HPI Requesting Clinician: Matthew Burton NP Reason for consult: CAD Chief complaint: nausea sob PCP: PCP: Abdiaziz Fuchs MD HPI: Ms Giles is a 76 y/o Femal w / PMHx: CAD, HLD, T2DM, RONA (CPAP at home), smoker, Crohn's disease, AF s/p ablation (on Xar elto), s/p PPM and lymphedema; patient is from [place]. Dr. Fortune is consulted f or CAD. Patient experienced intermittent nonradiated chest tightness . She reports sob x 1 year, was placed on diuretics; however her sob is not res olved. She came in yesterday, 12/17 for elective LHC which showed 70 % stenosis of left proximal LAD, diffuse LAD, distal LAD 80% stenosis, constrictive pericarditis. CTS was consulted and scheduled CABG today. Per patient, her last day of Xarelto was 12/13. She reports nausea, no vomitting, no diarrhea, no melena. BUN 12, creatinine 0.8. Total cholestero l 108, triglycerides 67, HDL 33.2, LDL 66.3. At present, reports nausea, NAD; await for the s urgery later today. History - Adult longitudinal Past medical history: Reports: Atrial fibrillation, Diabetes mellitus, Hypertension, Dyslipidemia. Additional medical history: Clot degeneration Obstructive sleep apnea Chron's disease Past surgical history: Reports: Pacemaker (SJM). Alcohol use: Denies EtOH use Drug use: Denies recreational drugs Smoking status for patients 13 years old or olde r: Never Smoker Home medications: Home Medications: RIVAROXABAN (XARELTO) 20 MG PO DAILY amLODIPine (NORVASC) 5 MG PO DAILY cloNIDine (CATAPRES) 0.3 MG PO BID DOXAZOSIN (CARDURA) LISINOPRIL (ZESTRIL) OLMESARTAN (BENICAR) 40 MG PO DAILY PRAVASTATIN (PRAVACHOL) FUROSEMIDE (LASIX) 10 MG PO DAILY METOLAZONE (ZAROXOLYN) 10 MG PO DAILY POTASSIUM CHLORIDE ER (MICRO-K) 10 MEQ PO DAILY OMEPRAZOLE ER 20 MG PO DAILY GLIMEPIRIDE (AMARYL) 4 MG PO DAILY INSULIN DETEMIR (LEVEMIR FlexTouch (15mL)) 50 UN ITS SUBQ BID INSULIN LISPRO (HumaLOG CARTRIDGE (15mL)) 0 UNIT S SUBQ TID LIRAGLUTIDE (VICTOZA (6mL)) 1.8 MG SUBQ DAILY metFORMIN (GLUCOPHAGE) 1,000 MG PO BID ADALIMUMAB + SUPPLIES (HUMIRA PREFILLED PEN) 40 MG SUBQ Q14D azaTHIOprine (IMURAN) 50 MG PO DAILY Allergies: Coded Allergies: ciprofloxacin (From CIPRO) (Severe, JOINT PAIN 0 12/12/21) morphine (Severe, RASH, SWELLING 12/12/21) Review of Systems Constitutional: Denies: chills, fatigue, fever, generalized weak ness. Skin: Denies: diaphoresis, ecchymosis. Allergy/Immun: Denies: itching, rhinorrhea. Objective General VS/I O: Vital Signs: Date Time Temp Pulse Resp B/P B/P Pulse O2 O2 Flow FiO2 Mean Ox Delivery Rate 12/18 1126 97.7 75 12 159/85 109.7 93 Nasal 3 cannula 12/18 0800 Nasal 2 cannula 12/18 0748 97.5 70 12 141/80 100.3 96 12/18 0424 97.7 74 20 132/75 94.1 95 Nasal cannula 12/17 2317 97.9 73 20 145/83 104.0 98 Room air 12/17 2246 Nasal 2 cannula 12/17 1919 97.9 70 20 147/78 101.3 93 Nasal cannula 24 hour I O ending at 0700: 12/17 1900 12/18 0700 Intake Total 240 Output Total 800 Balance -560 Intake, Oral 240 Number 1 Bowel Movements Output, Urine 800 PATIENT WEIGHT: Weight (lb): 266 Weight (oz): 12.15 Weight (kg): 121.000 Medications: Active Meds + DC'd Last 24 Hrs Atorvastatin Calcium (LIPITOR) 40 MG 2100 PO Ondansetron HCl (ZOFRAN) 4 MG Q6H PRN PRN IV Amlodipine Besylate (NORVASC) 5 MG DAILY PO Furosemide (LASIX) 10 MG DAILY PO (DC) Lisinopril (ZESTRIL) 40 MG DAILY PO (DC) Losartan Potassium (COZAAR) 100 MG DAILY PO (DC ) Metolazone (ZAROXOLYN) 10 MG DAILY PO (DC) Acetaminophen (TYLENOL EXTRA STRENGTH) 1,000 MG PREOP ONCALL PO (CKD) Gabapentin (NEURONTIN) 200 MG PREOP ONCALL PO (C KD) Pantoprazole (PROTONIX) 40 MG DAILY@0600 PO Cefazolin Sodium (KEFZOL OR ANCEF) 3 GM PREOP 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 IV (CKD) Sodium Chloride (SODIUM CHLORIDE 0.9%) 250 ML Metoprolol Tartrate (LOPRESSOR) 6.25 MG ONCE ONE PO (DC) Vancomycin HCl (VANCOMYCIN HCL) 1,750 MG PREOP O NCALL IV (DC) Sodium Chloride (SODIUM CHLORIDE 0.9%) 500 ML Vancomycin HCl (VANCOMYCIN HCL) 1,750 MG PREOP O NCALL IV (CKD) Sodium Chloride (NS 0.9%) 500 ML Verapamil HCl (ISOPTIN) 16.6 MG .Q24H ONE IV (CK D) Heparin Sodium (Porcine) (HEPARIN SODIUM) 1,660 UNIT Sodium Bicarbonate (SODIUM BICARBONATE) 0.7 ML Nitroglycerin/Dextrose (NITROGLYCERIN 50MG/D5W 250ML) 8.3 MG Lactated Ringer's (LACTATED RINGERS) 949.5 ML Clonidine HCl (CATAPRES) 0.3 MG BID PO Doxazosin Mesylate (CARDURA) 4 MG BEDTIME PO Insulin Glargine (Lantus/Semglee) 50 UNIT BID [place] BQ Insulin Human Lispro (HUMALOG) 0 AC HS SUBQ Pravastatin Sodium (PRAVACHOL) 10 MG 2100 PO (DC ) Dextrose/Water (DEXTROSE 10% IN WATER) 125 ML DIR PRN IV (CKD) Dextrose/Water (DEXTROSE 10% IN WATER) 250 ML DIR PRN IV (CKD) Glucagon (GLUCAGON) 1 MG ASDIR PRN IM Atropine Sulfate (ATROPINE SULFATE 0.1MG/ML SYR) 0.5 MG ASDIR PRN IV (DC ) Sodium Chloride (SODIUM CHLORIDE 0.9%) 1,000 ML .[id number] IV (DC) Sodium Chloride (SODIUM CHLORIDE 0.9%) 500 ML DIR PRN IV (DC) Physical Exam General appearance: obese, alert, awake, oriente d, no acute distress, conversational, mental status normal, no respira tory distress Head/Eyes: atraumatic, clear cornea ENT: moist mucosal membranes Neck: full range of motion, no JVD Cardiovascular: CV assessment: regular rate and rhythm, no murm ur Respiratory: decreased breath sounds, on oxygen (3LNC), no distress Abdomen: soft, non-tender, normal bowel sounds, no distention, no guarding Genitourinary: no flank pain, no urinary cathete r Upper extremity: UE assessment: normal temperature, no edema Lower extremity: LE assessment: normal temperature, no edema 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, 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, normal speech Psychiatry: normal affect Results Findings/Data: Laboratory Tests 12/17 0310 0737 Chemistry Sodium (134 - 147 mEq/L) 141 Potassium (3.4 - 5.0 mEq/L) 4.3 Chloride (100 - 108 mEq/L) 105 Carbon Dioxide (21 - 33 mEq/l) 30 Anion Gap (0 - 20) 10 BUN (7 - 18 mg/dL) 12 Creatinine (0.6 - 1.3 mg/dL) 0.8 Glomerular Filtr Rate (70 - 80) 69.4 L Glucose (70 - 110 mg/dL) 147 H POC Glucose (70 - 110 MG/DL) 213 H 153 H Hemoglobin A1c (4.8 - 6.0 %A1C) 6.2 H Calcium (8.0 - 10.5 mg/dL) 9.6 Total Bilirubin (0.0 - 1.0 mg/dL) 0.60 AST (15 - 37 IUnit/L) 17 ALT (30 - 65 IUnit/L) 11 L Total Alk Phosphatase (20 - 125 72 IUnit/L) B-Natriuretic Peptide (0 - 100 PG/ML) 90.0 Total Protein (6.4 - 8.2 g/dL) 7.2 Albumin (3.4 - 5.0 g/dL) 3.70 Triglycerides (40 - 150 mg/dL) 67 Cholesterol (<200 mg/dL) 108 LDL Cholesterol Measurd (0 - 100 66.3 mg/dL) HDL Cholesterol (39 - 96 mg/dL) 33.2 L Cholesterol/HDL Ratio (3.27 - 4.44 3.25 L RATIO) 12/18 1125 Chemistry POC Glucose (70 - 110 MG/DL) 148 H Laboratory Tests 12/18 309 Coagulation INR (0.8 - 1.2) 1.2 PTT ([place]) (25.0 - 39.5 Seconds) 31.0 PT Patient/Control Mix (9.3 - 12.9 SECONDS) 13. 5 H Laboratory Tests 12/18 309 Hematology WBC (4.5 - 11.0 x10 3/uL) 4.0 L RBC (3.54 - 5.02 x10 6/uL) 3.15 L Hgb (11.0 - 15.0 g/dL) 11.0 Hct (33.0 - 45.0 %) 33.9 MCV (81.0 - 99.0 fL) 107.6 H MCH (27.0 - 33.0 pg) 34.9 H MCHC (33.0 - 37.0 g/dL) 32.4 L RDW (11.5 - 14.5 %) 15.9 H Plt Count (150 - 400 x10 3/uL) 116 L MPV (7.0 - 9.0 fL) 11.5 H Neut % (Auto) (56.0 - 77.0 %) 80.1 H Lymph % (Auto) (14.0 - 32.0 %) 8.4 L Barron % (Auto) (4.8 - 9.0 %) 9.4 H Eos % (Auto) (0.3 - 3.7 %) 1.3 Baso % (Auto) (0.0 - 2.0 %) 0.5 Neut # (Auto) (2.0 - 7.6 x10 3/uL) 3.17 Lymph # (Auto) (1.0 - 3.8 x10 3/uL) 0.33 L Barron # (Auto) (0.1 - 0.8 x10 3/uL) 0.37 Eos # (Auto) (0.0 - 0.2 x10 3/uL) 0.05 Baso # (Auto) (0.0 - 0.2 x10 3/uL) 0.02 Abs Immat Gran (auto) (0.00 - 0.03 x10 3/uL) 0. 01 Add Manual Diff NO Immature Gran % (0.0 - 2.0 %) 0.3 Nucleated RBC % (0 - 0 %) 0.0 Nucleated RBCs # (Man) (0.0 - 0.1 x10 3/uL) 0.0 0 Laboratory Tests 12/18 2015 Serology SARS-CoV-2 Ag (Rapid) (Negative) Negative Laboratory Tests 12/18 309 Urines Urine Color (YEL/STRAW) YELLOW Urine Appearance (CLEAR) SL CLOUDY Urine pH (5.0 - 7.0) 5.0 Ur Specific Linneus (1.005 - 1.030) 1.032 H Urine Protein (NEGATIVE) NEGATIVE Urine Glucose (UA) (NEGATIVE) NEGATIVE Urine Ketones (NEGATIVE) NEGATIVE Urine Blood (NEGATIVE) NEGATIVE Urine Nitrite (NEGATIVE) NEGATIVE Urine Bilirubin (NEGATIVE) NEGATIVE Urine Urobilinogen (0.2 - 1.0 mg/dL) 0.2 Ur Leukocyte Esterase (NEGATIVE) 3+ H Urine RBC (0 - 3 RBC/HPF) 11-20 Urine WBC (0 - 3 WBC/HPF) 21-50 H Ur Squamous Epith Cells (NONE SEEN /HPF) 11-25 H Urine Bacteria (NONE SEEN /HPF) 1+ H Urine Mucus (NONE SEEN /LPF) TRACE Microbiology Date/Time Procedure - Status Source Growth 12/18 2003 MSSA Surveillance Screen - COMP NASAL 12/18 2003 MRSA DNA Surveillance Screen - COMP NASAL Laboratory Tests 12/18 309 Chemistry B-Natriuretic Peptide (0 - 100 PG/ML) 90.0 Radiology Data: Recent Impressions: CAT SCAN - CT CHEST W/O CONTRAST 12/17 1733 Report Impression - Status: SIGNED Entered: 12/17/2021 184 IMPRESSION: 1. There is a 2 lead cardiac pacemaker with cont rol in the left chest. The leads terminate in the regions of the right cardiac ventricle and coronary sinus. There is a severe burden of three-vessel coronary artery atherosclerotic vas cular calcification. There is cardiomegaly. There is n o pericardial effusion. 2. There is mild interstitial pulmonary edema. T here is pulmonary atelectasis but no evidence of pneumonia. Impression By: [email or web address] - Jose Rankin D.O. ULTRASOUND - DUP VEIN OLLIE 12/17 1846 Report Impression - Status: SIGNED Entered: 12/17/20212001 IMPRESSION: Greater saphenous vein is patent. Vein mapping a s described. Impression By: [email or web address] - Anoop Lilly M.D. ULTRASOUND - DUP EXTRACRANIAL OLLIE 12/17 1846 Report Impression - Status: SIGNED Entered: 12/17/2021 1903 IMPRESSION: No flow-limiting proximal internal carotid arter ial stenosis. REFERENCES: SRU CRITERIA. The degree of internal carotid art olivia stenosis is based on criteria defined by the Society of Radi ologists in Ultrasound (SRU). Normal is no stenosis. Mild is less than 50% stenosis. Moderate is 50-69% stenosis. Severe is greater than 69% stenosis to near occlusion. Near occlusion is a markedly narrowed lumen. Total occlusion is no detectable patent l umen. Impression By: [email or web address] - Margarito Delgado M.D. Results: labs reviewed, vital signs reviewed, vi kirk signs stable, rhythm personally rev'd, x-ray personally reviewed, latisha gomez med profile rev'd Telemetry Interpretation: Normal sinus rhythm Diagnosis, Assessment Plan Consultants: cardiology, cardiovascular surgery Plan discussed with: patient, nurse Free Text DxA P Notes Free Text DxA P Notes: Ms Giles is a 76 y/o Femal w / PMHx: CAD, HLD, T2DM, RONA (CPAP at home), smoker, Crohn's disease, AF s/p ablation (on Xar elto), s/p PPM and lymphedema; patient is from [place]. Dr. Fortune is consulted f or CAD. Patient experienced intermittent nonradiated chest tightness . She reports sob x 1 year, was placed on diuretics; however her sob is not res olved. She came in yesterday, 12/17 for elective LHC which showed 70 % stenosis of left proximal LAD, diffuse LAD, distal LAD 80% stenosis, constrictive pericarditis. CTS was consulted and scheduled CABG today. Per patient, her last day of Xarelto was 12/13. She reports nausea, no vomitting, no diarrhea, no melena. BUN 12, creatinine 0.8. Total cholestero l 108, triglycerides 67, HDL 33.2, LDL 66.3. At present, reports nausea, NAD; await for the s urgery later today. - CAD. Will go for CABG later today - per CTS. On statin, beta-delma. - Chr AF s/p PPM/ablation. Rate controlled, now pacing. Xarelto on hold for surgery. - HTN. BP controlled. On Norvasc 5mg po daily, clonidine 0.3 mg p.o. twice daily and Cardura 4 mg p.o. at bedtime. - HLD. On statins. - Crohn's disease. Per IM. - Nausea. Start Zofran 4mg IV q6h PRN. Discussed plan of care w/pt. Thank you for the kind consult. Electronically Signed by Jayna Gonzales NP on at 1441 Electronically Signed by Aruna Fortune MD on at 0804 RPT #:[id number] END OF REPORT 2021-12-17 18:05:00-00:[address] [facility] ([facility]) Hospitalist History Physical REPORT#:[id number] REPORT STATUS: Signed DATE:12/17/21 TIME: 180 PATIENT: SAÚL GILES UNIT #: [id number] ROOM/BED: [place] [address] : 43 AGE: 76 SEX: F ATTEND: Leah More MD ADM AUTHOR: Meryl Rosa MD * ALL edits or amendments must be made on the [employer]/computer document * History of Present Illness HPI Chief complaint: sob HPI: 76 years old female with PMH of macular degeneration, obesity, obstructive sleep apnea (CPAP at home), former smoker, hypertensio n, hyperlipidemia, diabetes, Crohn's disease, chronic atr ial fibrillation status post 3 ablations in the past (on Xarelto), pacemaker plac ement is admitted to the hospital post cardiac cath . she need CABG . she had sob for years . sob go t worse . she was admitted to the hospital in [place] . she had cath 3 we eks ago . she was reffered to here for stents placement . she had cath yesterd ay . it show multiple vessels CAD . she is recommend CABG . she still feel sob . no cp no nausea no vomiting no fever no abdominal pain no dizziness . History Past Medical Surgical Hx Additional medical history: Clot degeneration Obstructive sleep apnea Hypertension Hyperlipidemia Diabetes Chrons disease Chronic A. fib Additional surgical history: Pacemaker placement Social History Alcohol use: Denies EtOH use Drug use: Denies recreational drugs Smoking status for patients 13 years old or olde r: Never Smoker Medication/Allergy-Vaccine Hx Allergies: Coded Allergies: ciprofloxacin (From CIPRO) (Severe, JOINT PAIN 0 12/12/21) morphine (Severe, RASH, SWELLING 12/12/21) Review of Systems Constitutional: Denies: fatigue, fever, generalized weakness, le thargy. ENT: Denies: sore throat. Respiratory: Reports: DOUGLASS (dyspnea on exertion), non producti ve cough, SOB. Denies: wheezing. Cardiovascular: Reports: DOUGLASS (dyspnea on exertion), edema. Denie s: chest pain, orthopnea, palpitations. GI: Denies: abdominal pain, diarrhea, nausea, vomiti ng. : Denies: dysuria, flank pain, frequency. Neuro: Denies: dizziness, seizure, syncope. Physical Exam VS/I O: Vital Signs Date Temp Pulse Resp B/P B/P Mean Pulse Ox FiO2 12/17 36.4 45 16 135/63 86.6 97 Last Documented: Result Date Time Pulse Ox 97 12/17 1329 B/P 135/63 12/17 1329 B/P Mean 86.6 12/17 1329 O2 Delivery Nasal cannula 12/17 132 Temp 36.4 12/17 132 Pulse 45 12/17 1329 Resp 16 12/17 132 O2 Flow Rate 2 12/17 1300 Patient Weight and BMI Weight (kg): 121.000 BMI: 45.8 General appearance: alert, awake, oriented Head/Eyes: atraumatic, normal conjunctiva/sclera , normal eyelids/periorb., normocephalic Neck: full range of motion, non-tender, no JVD Cardiovascular: normal heart sounds, regular rat e rhythm Respiratory: aerating well, clear to auscultatio n Abdomen: non-tender, normal bowel sounds, soft, no distention Extremities: moves all, no calf tenderness, no e ana 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 There is a 2 lead cardiac pacemaker with cont rol in the left chest. The leads terminate in the regions of the right cardiac ventricle and coronary sinus. There is a severe burden of three-vessel coronary artery atherosclerotic vas cular calcification. There is cardiomegaly. There is n o pericardial effusion. 2. There is mild interstitial pulmonary edema. T here is pulmonary atelectasis but no evidence of pneumonia. Impression By: [email or web address] - Jose Rankin D.O. ULTRASOUND - DUP VEIN OLLIE 12/17 1846 Report Impression - Status: SIGNED Entered: 12/17/20212001 IMPRESSION: Greater saphenous vein is patent. Vein mapping a s described. Impression By: [email or web address] - Anoop Lilly M.D. ULTRASOUND - DUP EXTRACRANIAL OLLIE 12/17 1846 Report Impression - Status: SIGNED Entered: 12/17/2021 1903 IMPRESSION: No flow-limiting proximal internal carotid arter ial stenosis. REFERENCES: SRU CRITERIA. The degree of internal carotid art olivia stenosis is based on criteria defined by the Society of Radi ologists in Ultrasound (SRU). Normal is no stenosis. Mild is less than 50% stenosis. Moderate is 50-69% stenosis. Severe is greater than 69% stenosis to near occlusion. Near occlusion is a markedly narrowed lumen. Total occlusion is no detectable patent l umen. Impression By: [email or web address] - Margarito Delgado M.D. Diagnosis, Assessment Plan Free Text A P: 76 years old female with PMH of macular degeneration, obesity, obstructive sleep apnea (CPAP at home), former smoker, hypertensio n, hyperlipidemia, diabetes, Crohn's disease, chronic atr ial fibrillation status post 3 ablations in the past (on Xarelto), pacemaker placement CAD -- multiple vesssels HTN DM HLD Crohn's disease chronic atrial fibrillation status post 3 ablati ons macular degeneration obesity obstructive sleep apnea CAD -- cardiology consult CV surgeon consult CABG -- AM ASA/lipitor afib -- rate control -- hold xarelto for surgery HTN-- continue home med DM-- on lantus -- sliding scale HLD-- on lipitor RONA--cpap as need DVTP -- lovenox Current Medications Sig/Fabby Start time Last Medication Dose Route Stop Time Status Admin Amlodipine Besylate 5 MG DAILY 12/18 899 AC PO 01/17 859 Furosemide 10 MG DAILY 12/18 899 AC PO 01/17 859 Lisinopril 40 MG DAILY 12/18 899 AC PO 01/16 1214 Losartan Potassium 100 MG DAILY 12/18 899 AC PO 01/17 859 Metolazone 10 MG DAILY 12/18 899 AC PO 11/05 0859 Pantoprazole 40 MG DAILY@0600 12/18 06 AC PO 01/17 0559 Cefazolin Sodium 3 GM PREOP ONCALL 12/18 0500 C KD Sodium Chloride 250 ML IV 12/18 2359 Metoprolol Tartrate 6.25 MG ONCE ONE 12/18 0500 AC PO 12/18 0501 Vancomycin HCl 1,750 MG PREOP ONCALL 12/18 0500 DC Sodium Chloride 500 ML IV 12/18 235 Vancomycin HCl 1,750 MG PREOP ONCALL 12/18 499 CKD Sodium Chloride 500 ML IV 12/25 0459 Verapamil HCl 16.6 MG .Q24H ONE 12/18 499 CKD Heparin Sodium 1,660 UNIT IV 12/19 045 (Porcine) Sodium Bicarbonate 0.7 ML Nitroglycerin/ 8.3 MG Dextrose Lactated Ringer's 949.5 ML Clonidine HCl 0.3 MG BID 12/17 2099 AC PO 01/16 205 Doxazosin Mesylate 4 MG BEDTIME 12/17 2099 AC PO 01/16 205 Insulin Glargine 50 UNIT BID 12/17 2099 AC SUBQ 01/16 205 Insulin Human Lispro 0 AC HS 12/17 2099 AC SUBQ 01/16 205 Pravastatin Sodium 10 MG 2100 12/17 2100 AC PO 01/16 205 Dextrose/Water 125 ML ASDIR PRN 12/17 1800 CKD IV 01/16 175 Dextrose/Water 250 ML ASDIR PRN 12/17 1800 CKD IV 01/16 1759 Glucagon 1 MG ASDIR PRN 12/17 1800 AC IM 01/16 1759 Atropine Sulfate 0.5 MG ASDIR PRN 12/17 1200 AC IV 12/18 1158 Sodium Chloride 1,000 ML .[id number] 12/17 1200 AC 12/17 IV 12/17 1839 1404 Sodium Chloride 500 ML ASDIR PRN 12/17 1200 AC IV 12/18 1158 Adenosine 0 .STK-MED ONE 12/17 1052 DC IV Sodium Chloride 50 ML .STK-MED ONE 12/17 1052 D C IV Iopamidol 100 ML .STK-MED ONE 12/17 1034 DC 10 IV 12/17 1035 1034 Fentanyl Citrate 0 .STK-MED ONE 12/17 1019 DC 12/17 .ROUTE 1030 Midazolam HCl 0 .STK-MED ONE 12/17 1019 DC 10/0 5 .ROUTE 1030 Heparin Sodium/ 500 ML .STK-MED ONE 12/17 0849 DC 10/05 Sodium Chloride IV 1030 Heparin Sodium 0 .STK-MED ONE 12/17 0840 DC 10 05 .ROUTE 1030 Heparin Sodium/ 1,000 ML .STK-MED ONE 12/17 094 0 DC 10/05 Sodium Chloride IV 1030 Heparin Sodium/ 500 ML .STK-MED ONE 12/17 0840 DC 10/05 Sodium Chloride IV 1030 Lidocaine HCl 0 .STK-MED ONE 12/17 0840 DC 10/0 5 .ROUTE 1030 Nitroglycerin/ 250 ML .STK-MED ONE 12/18 939 D C 10 Dextrose IV 1030 Verapamil HCl 0 .STK-MED ONE 12/18 939 DC 10/0 5 IV 1030 Home Medications: RIVAROXABAN (XARELTO) 20 MG PO DAILY amLODIPine (NORVASC) 5 MG PO DAILY cloNIDine (CATAPRES) 0.3 MG PO BID DOXAZOSIN (CARDURA) LISINOPRIL (ZESTRIL) OLMESARTAN (BENICAR) 40 MG PO DAILY PRAVASTATIN (PRAVACHOL) FUROSEMIDE (LASIX) 10 MG PO DAILY METOLAZONE (ZAROXOLYN) 10 MG PO DAILY POTASSIUM CHLORIDE ER (MICRO-K) 10 MEQ PO DAILY OMEPRAZOLE ER 20 MG PO DAILY GLIMEPIRIDE (AMARYL) 4 MG PO DAILY INSULIN DETEMIR (LEVEMIR FlexTouch (15mL)) 50 UN ITS SUBQ BID INSULIN LISPRO (HumaLOG CARTRIDGE (15mL)) 0 UNIT S SUBQ TID LIRAGLUTIDE (VICTOZA (6mL)) 1.8 MG SUBQ DAILY metFORMIN (GLUCOPHAGE) 1,000 MG PO BID ADALIMUMAB + SUPPLIES (HUMIRA PREFILLED PEN) 40 MG SUBQ Q14D azaTHIOprine (IMURAN) 50 MG PO DAILY Consultants: cardiology, cardiovascular surgery [facility] Current Medications Current medication review: Home Medications: RIVAROXABAN (XARELTO) 20 MG PO DAILY amLODIPine (NORVASC) 5 MG PO DAILY cloNIDine (CATAPRES) 0.3 MG PO BID DOXAZOSIN (CARDURA) LISINOPRIL (ZESTRIL) OLMESARTAN (BENICAR) 40 MG PO DAILY PRAVASTATIN (PRAVACHOL) FUROSEMIDE (LASIX) 10 MG PO DAILY METOLAZONE (ZAROXOLYN) 10 MG PO DAILY POTASSIUM CHLORIDE ER (MICRO-K) 10 MEQ PO DAILY OMEPRAZOLE ER 20 MG PO DAILY GLIMEPIRIDE (AMARYL) 4 MG PO DAILY INSULIN DETEMIR (LEVEMIR FlexTouch (15mL)) 50 UN ITS SUBQ BID INSULIN LISPRO (HumaLOG CARTRIDGE (15mL)) 0 UNIT S SUBQ TID LIRAGLUTIDE (VICTOZA (6mL)) 1.8 MG SUBQ DAILY metFORMIN (GLUCOPHAGE) 1,000 MG PO BID ADALIMUMAB + SUPPLIES (HUMIRA PREFILLED PEN) 40 MG SUBQ Q14D azaTHIOprine (IMURAN) 50 MG PO DAILY I attest that the foregoing medication list in t medical record is true, accurate, and complete to the best of my knowled ge. Electronically Signed by Meryl Rosa MD on 2 at 0952 RPT #:[id number] END OF REPORT 2021-12-17 13:47:00-00:00 [facility] Cardiothoracic Surgery Consult REPORT#:[id number] REPORT STATUS: Signed DATE:12/17/21 TIME: 1346 PATIENT: SAÚL GILES UNIT #: [id number] ROOM/BED: [place] [address] : 43 AGE: 76 SEX: F ATTEND: Leah More MD ADM AUTHOR: Kena Macedo P * ALL edits or amendments must be made on the [employer]/computer document * Sahil Pulido 12/17/21 1347: History of Present Illness HPI Chief complaint: Shortness of breath PCP: PCP: Abdiaziz Fuchs MD Requesting Clinician Dr Vail HPI: This very pleasant 76-year-old female, from [facility], with past medical history of macular d egeneration, obesity, obstructive sleep apnea (CPAP at home), former smoker, hyp ertension, hyperlipidemia, diabetes, Crohn's disease , chronic atrial fibrillatio n status post 3 ablations in the past (on Xarelto), pacemaker placement who had a recent admission t o the hospital with heart failure symptoms. She has been admitted to the [facility] today for elective heart cath. Coronary angiogram showed severe mul tivessel coronary artery disease suitable for percutaneous intervention. CV surgery called for evaluation. History Additional Medical History: Clot degeneration Obstructive sleep apnea Hypertension Hyperlipidemia Diabetes Chrons disease Chronic A. fib Additional Surgical History: Pacemaker placement Alcohol Use Denies EtOH use Drug Use Denies recreational drugs Smoking status for patients 13 years old or olde r: Never Smoker Medications: Home Medications: Medication Dose/Rte/Freq Days Qty Entered Last Max Daily Dose Reviewed RIVAROXABAN (XARELTO) 20 MG PO DAILY 12/17/21 1 Strength: 20 MG TAB 0800 0801 amLODIPine (NORVASC) 5 MG PO DAILY 12/17/2108/03 Strength: 5 MG TAB 0805 0812 cloNIDine (CATAPRES) 0.3 MG PO BID 12/17/2108/03 Strength: 0.3 MG TAB 0805 0812 DOXAZOSIN (CARDURA) 12/17/21 12/17/21 Strength: 4 MG TAB 0805 0812 LISINOPRIL (ZESTRIL) 12/17/21 12/17/21 Strength: 40 MG TAB 0806 0812 OLMESARTAN (BENICAR) 40 MG PO DAILY 12/17/21 Strength: 40 MG TAB 0806 0812 PRAVASTATIN (PRAVACHOL) 12/17/21 12/17/21 Strength: 10 MG TAB 0806 0812 FUROSEMIDE (LASIX) 10 MG PO DAILY 12/17/2108/03 Strength: 20 MG TAB 0807 0812 METOLAZONE (ZAROXOLYN) 10 MG PO DAILY 12/17/21 12/17/21 Strength: 10 MG TAB 0808 0812 POTASSIUM CHLORIDE ER 10 MEQ PO DAILY 12/17/21 12/17/21 (MICRO-K) 0808 0812 Strength: 10 MEQ CAP.SA OMEPRAZOLE ER 20 MG PO DAILY 12/17/21 12/17/21 Strength: 20 MG CAP. 0809 0812 GLIMEPIRIDE (AMARYL) 4 MG PO DAILY 12/17/2108/03 Strength: 4 MG TAB 0809 0812 INSULIN DETEMIR 50 UNITS SUBQ BID 12/17/2108/03 (LEVEMIR FlexTouch (15mL)) 809 811 Strength: 100 UNIT/ML (3 ML) PEN.INJCTR INSULIN LISPRO 0 UNITS SUBQ TID 12/17/21 (HumaLOG CARTRIDGE 810 0812 (15mL)) Strength: 100 UNIT/ML CARTRIDGE LIRAGLUTIDE 1.8 MG SUBQ DAILY 12/17/21 12/17/21 (VICTOZA (6mL)) 810 08 Strength: 0.6 MG/0.1 ML (18 MG/3 ML) PEN.INJCTR metFORMIN (GLUCOPHAGE) 1,000 MG PO BID 12/17/21 12/17/21 Strength: 1,000 MG TAB 08 0812 ADALIMUMAB + SUPPLIES 40 MG SUBQ Q14D 12/17/21 12/17/21 (HUMIRA PREFILLED PEN) 811 811 Strength: 40 MG/0.8 ML KIT azaTHIOprine (IMURAN) 50 MG PO DAILY 12/17/21 1 Strength: 50 MG TAB 0812 0812 Current Hospital Medications: Anti-Infective Agents Sig/Fabby Start time Last Medication Dose Route Stop Time Status Admin Cefazolin Sodium 3 GM PREOP ONCALL 12/18 0500 C KD (KEFZOL OR ANCEF) IV 12/18 2359 Sodium Chloride 250 ML (SODIUM CHLORIDE 0.9%) Vancomycin HCl 1,750 MG PREOP ONCALL 12/18 0500 DC (VANCOMYCIN HCL) IV 12/18 2359 Sodium Chloride 500 ML (SODIUM CHLORIDE 0.9%) Vancomycin HCl 1,750 MG PREOP ONCALL 12/18 0500 CKD (VANCOMYCIN HCL) IV 12/25 0459 Sodium Chloride 500 ML (NS 0.9%) Autonomic Drugs Sig/Fabby Start time Last Medication Dose Route Stop Time Status Admin Atropine Sulfate 0.5 MG ASDIR PRN 12/17 1200 AC (ATROPINE SULFATE IV 12/18 1158 0.1MG/ML SYR) Blood Formation,Coagulation Sig/Fabby Start time Last Medication Dose Route Stop Time Status Admin Heparin Sodium/ 500 ML .STK-MED ONE 12/17 0949 DC 12/17 Sodium Chloride IV 1030 (HEPARIN 1,000 UNITS/ NS 500ML) Heparin Sodium 0 .STK-MED ONE 12/17 0940 DC (HEPARIN SODIUM) .ROUTE 1030 Heparin Sodium/ 1,000 ML .STK-MED ONE 12/17 094 0 DC 12/17 Sodium Chloride IV 1030 (HEPARIN 2,000 UNITS/ NS 1,000mL) Heparin Sodium/ 500 ML .STK-MED ONE 12/18 939 DC 12/17 Sodium Chloride IV 1030 (HEPARIN 1,000 UNITS/ NS 500ML) Cardiovascular Drugs Sig/Fabby Start time Last Medication Dose Route Stop Time Status Admin Amlodipine Besylate 5 MG DAILY 12/18 899 AC (NORVASC) PO 01/17 08 Lisinopril 40 MG DAILY 12/18 899 AC (ZESTRIL) PO 01/16 1214 Losartan Potassium 100 MG DAILY 12/18 899 AC (COZAAR) PO 01/17 859 Metoprolol Tartrate 6.25 MG ONCE ONE 12/18 499 AC (LOPRESSOR) PO 12/18 050 Verapamil HCl 16.6 MG .Q24H ONE 12/18 499 CKD (ISOPTIN) IV 12/19 045 Heparin Sodium 1,660 UNIT (Porcine) (HEPARIN SODIUM) Sodium Bicarbonate 0.7 ML (SODIUM BICARBONATE) Nitroglycerin/ 8.3 MG Dextrose (NITROGLYCERIN 50MG/ D5W 250ML) Lactated Ringer's 949.5 ML (LACTATED RINGERS) Clonidine HCl 0.3 MG BID 12/17 2099 AC (CATAPRES) PO 01/16 2059 Doxazosin Mesylate 4 MG BEDTIME 12/17 2099 AC (CARDURA) PO 01/16 2059 Pravastatin Sodium 10 MG 2100 12/17 2099 AC (PRAVACHOL) PO 01/16 2059 Adenosine 0 .STK-MED ONE 12/17 1052 DC (ADENOSCAN) IV Lidocaine HCl 0 .STK-MED ONE 12/18 939 DC 10/0 5 (LIDOCAINE HCL/PF) .ROUTE 1030 Nitroglycerin/ 250 ML .STK-MED ONE 12/18 939 D C 12/17 Dextrose IV 1030 (NITROGLYCERIN 50,000MCG/D5W 250ML) Verapamil HCl 0 .STK-MED ONE 12/18 939 DC 10/0 5 (ISOPTIN) IV 1030 Central Nervous System Agents Sig/Fabby Start time Last Medication Dose Route Stop Time Status Admin Fentanyl Citrate 0 .STK-MED ONE 12/17 1019 DC 1 005 (SUBLIMAZE) .ROUTE 1030 Midazolam HCl 0 .STK-MED ONE 12/17 1019 DC 10/0 5 (VERSED) .ROUTE 1030 Diagnostic Agents Sig/Fabby Start time Last Medication Dose Route Stop Time Status Admin Iopamidol 100 ML .STK-MED ONE 12/17 1034 DC 10 (ISOVUE-370 100ML) IV 12/17 1035 1034 Electrolytic, Caloric, And Nataliia Sig/Fabby Start time Last Medication Dose Route Stop Time Status Admin Furosemide 10 MG DAILY 12/18 899 AC (LASIX) PO 01/17 0859 Metolazone 10 MG DAILY 12/18 899 AC (ZAROXOLYN) PO 01/17 0859 Sodium Chloride 1,000 ML .[id number] 12/17 1200 AC 12/17 (SODIUM CHLORIDE IV 12/17 1839 1404 0.9%) Sodium Chloride 500 ML ASDIR PRN 12/17 1200 AC (SODIUM CHLORIDE IV 12/18 1158 0.9%) Sodium Chloride 50 ML .STK-MED ONE 12/17 1052 D C (SODIUM CHLORIDE IV 0.9%) Gastrointestinal Drugs Sig/Fabby Start time Last Medication Dose Route Stop Time Status Admin Pantoprazole 40 MG DAILY@0600 12/18 599 AC (PROTONIX) PO 01/17 0559 Allergies: Coded Allergies: ciprofloxacin (From CIPRO) (Severe, JOINT PAIN 0 12/12/21) morphine (Severe, RASH, SWELLING 12/12/21) Review of Systems Review of Systems Constitutional: Denies: fever, malaise. Allergy/Immun: Denies: allergic reaction. Respiratory: Denies: SOB. Cardiovascular: Denies: chest pain, palpitations. Heme: Denies: bleeding. Neuro: Denies: dizziness, headache. Objective Physical Exam VS/I O: Last Documented: Result Date Time Pulse Ox 97 12/17 132 B/P 135/63 12/17 132 B/P Mean 86.6 12/17 1328 O2 Delivery Nasal cannula 12/17 1328 Temp 97.5 12/17 1328 Pulse 45 12/17 1328 Resp 16 12/17 132 O2 Flow Rate 2 12/17 1156 PATIENT WEIGHT: Weight (lb): 266 Weight (oz): 12.15 Weight (kg): 121.000 General appearance: alert, oriented, mental stat us normal, no respiratory distress HEENT: anicteric Cardiovascular: normal heart sounds, regular rat e rhythm Respiratory: decreased breath sounds, aerating w ell, symmetric expansion, no distress Abdomen: soft, non-tender, no distention Extremities: moves all 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, 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 Psychiatry: normal judgment/insight Results Findings/Data: Laboratory Tests 12/17 12/17 1324 0757 Chemistry POC Glucose (70 - 110 MG/DL) 140 H 164 H Laboratory Tests 12/17 12/17 1106 1050 Coagulation Activated Coag Time (74 - 137 SEC) 265 H 335 H Diagnosis, Assessment Plan Free Text A P: This very pleasant 76-year-old female, from [facility], with past medical history of macular d egeneration, obesity, obstructive sleep apnea (CPAP at home), former smoker, hyp ertension, hyperlipidemia, diabetes, Crohn's disease , chronic atrial fibrillatio n status post 3 ablations in the past (on Xarelto), pacemaker placement who had a recent admission t o the [facility] with heart failure symptoms. She has been admitted to the [facility] today for elective heart cath. Coronary angiogram showed severe mul tivessel coronary artery disease suitable for percutaneous intervention. CV surgery called for evaluation. PLAN Patient has severe coronary artery disease and c onstrictive pericarditis. She will benefit from off-pump ROBERTS to LAD and peric ardiotomy. Dr. Romero explained to the patient the surgery, risks invo lved, STS score, benefits, complications and alternatives. She acknowledged understanding and is willing to proceed Preop work-up has been initiated We will tentatively schedule patient for surgery tomorrow. Thank you for the consultation. Patient was revi ewed with Dr. Romero. René Romero 01/05/22 0923: Attestations Physician Attestation Agree w/findings plan: I have seen and examined Ms. Giles. I agree with the findings and plan as documented by IVANIA Fiore. Briefly, 76-year-old female with severe coronary artery disease. Patient will benefit from surgical revascularization. I had a long discussion with the patient, explained to her the procedure, risk involved, benefit, alternatives, STS risk score, and complications. Patie germain has agreed for surgery, I am making arrangement for Ms. Giles to have surgical revascularization in the near future. Thank you for the kind consult. at 1617 at 0934 [facility] #:[id number] END OF REPORT 2021-12-17 13:34:00-00:00 [id number] [place] [address] PATIENT NAME: SAÚL GILES ADMIT DATE: 2 ACCOUNT NO: [id number] [place]OM NO: [facility] [place] AGE: 76 REPORT TYPE: CARDIAC CATHETERIZATION REPORT SEX: F ADMITTING PHYSICIAN:Jeffry More MD ATTENDING PHYSICIAN:Jeffry More MD PROCEDURE DATE: 12/17/2021 PROCEDURE PERFORMED: 1. Selective coronary angiogram. 2. Left heart catheterization. 3. Right heart catheterization. INDICATIONS: 1. Questionable constrictive pericarditis. 2. Known significant LAD stenosis. ACCESS: 1. Right femoral artery, 6-Swedish closed with 6- Swedish Angio-Seal. 2. Right femoral vein 8-Swedish closed with manua l pressure. COMPLICATIONS: None. BLEEDING: Less than 20 mL. TOTAL SEDATION TIME: 45 minutes. Used fentanyl a nd Versed. DESCRIPTION OF PROCEDURE: After risks, benefits and alternatives were explained, the patient agreed to proceed and sig sanaz informed consent. The patient was brought into the cardiac catheteriza tion laboratory, prepped and draped in sterile fashion. Then, I acces sed the right femoral artery and right femoral vein using micropunc ture kit and ultrasound guidance and fluoroscopy and placed a 6-Swedish [place] sheath in the artery, 7-Swedish in the vein and then took a 7-Swedish [place] cathete r into the RA, RV, PA and wedge and took a waveform and measured pressure and th en I took a 6-Swedish pigtail catheter to the aortic root over a J wire through t he femoral artery access and passed it into the LV. I did simultaneous hemodynamic recording of the LV and RV with a respiratory variation and then LV and RA with respiratory variation and then LV and wedge of the respiratory variation as well as LV and PA, and then removed the [place] catheter and then I took a 6-Swedish XB3. 5 guide in the aortic root and engaged the left main, took standard views. Initially, I decided to try to do FFR of the LAD; however, it appeare d to be severely diseased. Findings were suggestive of constrictive pericarditis . We decided to abort the procedure and consult the cardiac surgery for a definitive surgical treatm ent. I then removed the guide and the sheath was removed and placed a closure device with good hemostasis on both sides of the vein and the artery. FINDINGS: PATIENT NAME: SAÚL GILES 332 1. Left main is normal. 2. LAD proximal 70% and then diffuse 70% in the mid section and then focal 80% distally. 3. The left circumflex, proximal 30% to 40% and distal 30%. 4. RCA is large and dominant and had luminal irr egularities. 5. Right heart numbers were evaluated an d the waveforms are between the LV and RV suggestive of constrictive pericarditis. CONCLUSION: 1. Severe LAD stenosis proximal to mid. 2. 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 PLAN: We will admit. Discussed with CT s panchito plan for open heart surgery for further management of constrictive pericarditis and ROBERTS to LAD. I discussed with the patient and family. Dictated By: Colt Vail MD Date Dictated: 12/17/2021 13:34:19 Date Transcribed: 12/17/2021 15:01:56 /DARON Receipt ID: [id number] Authenticated by Colt Vail MD On 01/14/2022 09:56:52 AM Electronically Signed by Colt Vail MD on at 0956 PATIENT NAME: SAÚL GILES 332 2021-12-12 12:29:00-00:00 [id number] [address] PATIENT NAME: SAÚL GILES ADMIT DATE: ACCOUNT NO: [id number] ROOM NO: AGE: 76 REPORT TYPE: eELECTROCARDIOGRAM REPORT SEX: F ADMITTING PHYSICIAN: ATTENDING PHYSICIAN:Colt Vail MD Order: [id number] Test Reason : PRE OP Test Date/Time Stamp: WedDec 12 2021 12:29:59 Blood Pressure : / mmHG Vent. Rate : 070 BPM Atrial Rate : 069 BPM P-R Int : 000 ms QRS Dur : 180 ms QT Int : 482 ms P-R-T Axes : 000 136 008 degree s QTc Int : 520 ms Suspect unspecified pacemaker failure Ventricular-paced rhythm Abnormal ECG No previous ECGs available Confirmed by LAURA NEAL, ANNE MARIE ([id number]) on 12/13/19 5:24:35 PM Referred By: Colt Vail Confirmed by:ANNE MARIE THOMAS MD at 1963 PATIENT NAME: SAÚL GILES 332
[2022-08-18] MEDS ORDERED: FENTANYL CITR 100 MCG/2 ML ONE (22:20)
[2022-08-18] MEDS ORDERED: NA CHLORIDE 0.9% 1,000 ML ONE (22:20)
[2022-08-18] MEDS ORDERED: ONDANSETRON 4 MG/2 ML VIAL ONE (22:20)
[2022-08-18 22:45] LABS: Absolute Lymphocytes (CBC) 0.8 K/uL (0.7-4.9); Hematocrit 42.7 % (36.0-45.0); Lymphocytes % 7.7 % (15.3-44.8); MCV 95.7 fL (80-100); RBC Red Blood Cell Count 4.46 M/uL (3.86-4.86)
[2022-08-19 00:05] LABS: Protime INR 1.08
[2022-08-19 01:26] LABS: Specific Gravity 1.023 (1.005-1.030); Urine Bacteria None Seen /HPF (<20); Urine Bilirubin NEGATIVE (Negative); Urine Blood Negative (Negative); Urine Clarity Extremely Turbid (Clear); Urine Color Yellow (Yellow); Urine Glucose NEGATIVE (Negative); Urine Mucus Slight /HPF (None Seen); Urine Protein TRACE (Negative); Urine Urobilinogen Normal (Normal); Urine pH 5.5 (5.0-7.0)
[2022-08-19 01:36] LABS: Albumin 3.4 g/dL (3.4-5.0); Bilirubin Total 0.8 mg/dL (0.2-1.0); Protein, Total 8.2 g/dL (6.4-8.2)
[2022-08-19 01:38] LABS: Potassium 2.6 mEq/L (3.5-5.1)
[2022-08-19] MEDS ORDERED: FENTANYL CITR 100 MCG/2 ML ONE (01:40)
[2022-08-19] MEDS ORDERED: PROMETHAZINE 25 MG TABLET ONE (01:40)
[2022-08-19] MEDS ORDERED: PANTOPRAZOLE 40 MG INJ ONE (01:40)
--- NOTE | 2022-08-19 03:03 | ER ---
Nurse's Notes [facility] Name: Kiah Taylor Age: 76 yrs Sex: Female : 1945 Arrival Date: 08/18/2022 Time: 19:46 Bed 20 Private MD: Diagnosis: Diverticulitis of large intestine without perforation or abscess with bleeding;Acute hypokalemia, history of Crohn's disease, acute sigmoid diverticulitis associated with rectal bleeding. Presentation: 08/18 20:43 Chief complaint: Patient states: Abdominal cramping and diarrhea since Wednesday, bloody nj1 diarrhea today at about 6pm. Vomited once this morning. Nauseous at the moment. Coronavirus screen: Vaccine status: Patient reports receiving the 2nd dose of the covid vaccine. Ebola Screen: Patient denies travel to an Ebola-affected area in the 21 days before illness onset. Initial Sepsis Screen: Does the patient meet any 2 criteria? No. Patient's initial sepsis screen is negative. Does the patient have a suspected source of infection? No. Patient's initial sepsis screen is negative. Risk Assessment: Do you want to hurt yourself or someone else? Patient reports no desire to harm self or others. Onset of symptoms was August 16, 2022. 20:43 Method Of Arrival: Ambulatory [facility] 20:43 Acuity: ANNIE 3 nj1 Historical: - Allergies: 20:45 Ciprofloxacin; nj1 20:45 Morphine; nj1 - Home Meds: 08/19 08:15 aspirin 81 mg Oral cap 1 cap once daily [Active]; atorvastatin 40 mg Oral tab 1 tab sg5 once daily [Active]; clopidogrel 75 mg Oral tab 1 tab once daily [Active]; folic acid 1 mg Oral tab 1 tab once daily [Active]; furosemide 80 mg Oral tab 1 tab 2 times per day [Active]; Humalog U-100 Insulin 100 unit/mL Sub-Q crtg three times a day [Active]; Humira 40 mg/0.8 mL subcutaneous sykt every 2 wks [Active]; Levemir U-100 Insulin 100 unit/mL subcutaneous soln 50 unit twice a day [Active]; lisinopril 5 mg Oral tab 1 tab once daily [Active]; methotrexate sodium 2.5 mg Oral tab 5 tabs once wkly [Active]; metolazone 2.5 mg Oral tab 1 tab once daily [Active]; metoprolol tartrate 25 mg Oral tab 1 tab once daily [Active]; omeprazole 20 mg Oral cpDR 1 cap once daily [Active]; potassium chloride 20 mEq Oral TbER 1 tab 2 times per day [Active]; trazodone 50 mg Oral tab 1 tab once daily [Active]; - PMHx: 08/18 20:45 AFIB; Crohn's Disease; diabetes mellitus; Hypertensive disorder; nj1 - PSHx: 20:45 heart SX; pacemaker; nj1 - Immunization history:: Client reports receiving the 2nd dose of the Covid vaccine. - Social history:: Smoking status: Patient/guardian denies using tobacco, but has a distant history of tobacco abuse. - Family history:: not pertinent. Screenin:47 [facility] ED Fall Risk Assessment (Adult) History of falling in the last 3 months, jj7 including since admission No falls in past 3 months (0 pts) Confusion or Disorientation No (0 pts) Intoxicated or Sedated No (0 pts) Impaired Gait No (0 pts) Mobility Assist Device Used No (0 pt) Altered Elimination No (0 pt) Score/Fall Risk Level 0 - 2 = Low Risk Oriented to surroundings, Maintained a safe environment. Abuse screen: Denies threats or abuse. Nutritional screening: No deficits noted. Tuberculosis screening: No symptoms or risk factors identified. Assessment: 21:45 Reassessment: ASSUMED CARE OF PT. PT SITTING IN BED. DAUGHTER AT BEDSIDE. TECH AT jj7 BEDSIDE DRAWING BLOOD. 21:47 General: Appears in no apparent distress. uncomfortable, Behavior is calm, cooperative, jj7 appropriate for age. Pain: Complains of pain in abdomen. GI: Abd is soft X 4 quads Abdomen is tender to palpation X 4 quads. Reports cramping, diarrhea, nausea. 08/19 01:41 Reassessment: Potassium critical level of 2.6 notified provider. aa9 18:21 GI: Bowel sounds present X 4 quads. sg5 Vital Signs: 08/18 20:43 BP 162 / 63; Pulse 74; Resp 18; Temp 98.5; Pulse Ox 93% on R/A; Weight 112.04 kg (R); nj1 Height 5 ft. 4 in. ; Pain 6/10; 21:45 BP 164 / 63; Pulse 74; Resp 18; Pulse Ox 97% ; j7 22:45 BP 146 / 68; Pulse 70; Resp 19; Pulse Ox 96% ; Pain 0/10; jj7 23:45 BP 144 / 66; Pulse 72; Resp 17; Pulse Ox 95% ; Pain 0/10; j7 08/19 00:45 BP 143 / 61; Pulse 73; Resp 20; jj7 01:42 BP 141 / 57; Pulse 70; Resp 16; Pulse Ox 95% ; j7 02:30 BP 148 / 62; Pulse 70; Resp 20; Pulse Ox 92% ; j7 03:30 BP 160 / 64; Pulse 75; Resp 17; Pulse Ox 94% ; 7 08/18 20:43 Body Mass Index 42.40 (112.04 kg, 162.56 cm) sc1 08/18 20:43 Pain Scale: Adult nj1 22:45 Pain Scale: Adult j7 23:45 Pain Scale: Adult [facility] ED Course: 08/18 19:47 Patient arrived in ED. jj6 20:45 Triage completed. nj1 20:46 Arm band placed on left wrist. nj1 21:02 Jelani Prather PA is PHCP. cp 21:05 Naren Arshad MD is Attending Physician. sp4 21:39 Say Gibbs, RN is Primary Nurse. jj7 21:47 Patient has correct armband on for positive identification. Placed in gown. Bed in low jj7 position. Call light in reach. Side rails up X 1. Adult w/ patient. Warm blanket given. 22:21 Type And Screen Sent. bc6 22:21 PT-INR Sent. bc6 22:21 Blood Culture Adult (2) Sent. bc6 22:21 CBC with Diff Sent. bc6 22:21 CMP Sent. bc6 22:21 Lipase Sent. bc6 22:21 Inserted saline lock: 22 gauge in left forearm, using aseptic technique. 6 08/19 02:03 CT Abd/Pelvis - Without Contrast In Process Unspecified. EDMS 03:01 Naren Arshad MD is Hospitalizing Provider. sp4 03:08 Hospitalizing Provider role handed off by Naren Arshad MD kl 03:08 Abdiaziz Fuchs MD is Hospitalizing Provider. kl 03:52 No provider procedures requiring assistance completed. jj7 09:00 Inserted saline lock: 24 gauge in left hand, using aseptic technique. ,using aseptic sg5 technique. difusex. 18:22 Patient admitted, IV remains in place. sg5 Administered Medications: 08/18 22:45 Drug: Ondansetron IVP 4 mg Route: IVP; Site: left forearm; jj7 23:15 Follow up: Response: Nausea is decreased jj7 22:45 Drug: fentaNYL (PF) IVP 50 mcg Route: IVP; Site: left forearm; jj7 23:18 Follow up: Response: Pain is decreased jj7 22:45 Drug: NS 0.9% IV 1000 ml Route: IV; Rate: 125 ml/hr; Site: left forearm; jj7 08/19 01:40 Drug: fentaNYL (PF) IVP 50 mcg Route: IVP; Site: left wrist; jj7 03:47 Follow up: Response: Marked relief of symptoms jj7 01:40 Drug: Promethazine PO 25 mg Route: PO; jj7 03:47 Follow up: Response: Marked relief of symptoms jj7 01:40 Drug: Pantoprazole IVP 40 mg Route: IVP; Site: left wrist; jj7 03:47 Follow up: Response: Marked relief of symptoms jj7 03:46 Drug: metroNIDAZOLE IVPB 500 mg Volume: 100 ml; Route: IVPB; Rate: 200 ml/hr; Infused jj7 Over: 30 mins; Site: left forearm; 03:47 Drug: Potassium Chloride PO 40 mEq Route: PO; jj7 04:55 Follow up: Response: No adverse reaction jj7 03:47 Drug: Rocephin - Rocephin (cefTRIAXone) IVPB 1 grams Route: IVPB; Infused Over: 30 jj7 mins; Site: left forearm; 04:10 Follow up: IV Status: Completed infusion jj7 04:10 Follow up: IV Status: Completed infusion jj7 04:55 Drug: Potassium Chloride IV 20 mEq Route: IV; Rate: calculated rate; Site: left wrist; jj7 Medication: 08/18 21:47 VIS not applicable for this client. jj7 Outcome: 08/19 03:03 Decision to Hospitalize by Provider. sp4 18:21 Admitted to Med/surg accompanied by tech, via stretcher, room 414, with chart, Report sg5 called to kavita 18:22 Condition: good sg5 18:22 Instructed on the need for admit. 18:22 Patient left the ED. sg5 Signatures: Dispatcher [employer] EDAllison Frazier, RN RN Jelani Mason PA PA cp Jeffries, Jennifer jj6 Allyn Lincoln RN RN aa9 Say Gibbs RN RN jj7 Taylor Magallon Sergey, MD MD sp4 Aneta Connelly RN RN sg5 Dawna Gomez RN RN nj1 Corrections: (The following items were deleted from the chart) 08/18 23:42 21:47 General: Appears in no apparent distress. uncomfortable, Behavior is calm, jj7 cooperative, appropriate for age, jj7 23:42 21:47 Pain: Complains of pain in abdomen jj7 jj7
--- NOTE | 2022-08-19 03:03 | EDPHYS ---
Physician Documentation [facility] Name: Kiah Taylor Age: 76 yrs Sex: Female : 1945 Arrival Date: 08/18/2022 Time: 19:46 Bed 20 Private MD: ED Physician Naren Arshad HPI: 08/18 21:05 This 76 yrs old Female presents to ER via Ambulatory with complaints of sp4 Abdominal Cramping, Diarrhea, Rectal Bleeding. 08/19 02:42 68-year-old female with history of Crohn's disease, diabetes, hypertension, CHF, sp4 hypokalemia presents with abdominal crampy pain, vomiting, and diarrhea associated with an episode of bloody stool. Bloody stool was today, as the abdominal cramps diarrhea started on Wednesday 3 days ago. Patient reported 1 episode of vomiting. Patient is on injectable Humira twice a week last Humira injection was yesterday in the morning. Patient's bridge worker apprentice is Dr. Julio Romero, primary doctor is Dr. Fuchs, and bee robber is Dr. Vail. Patient arrived here primarily out of concern of bloody stool. . Patient states she is allergic to morphine. Has history of partial colectomy in the past. Historical: - Allergies: 08/18 20:45 Ciprofloxacin; nj1 20:45 Morphine; nj1 - Home Meds: 08/19 08:15 aspirin 81 mg Oral cap 1 cap once daily [Active]; atorvastatin 40 mg Oral tab 1 tab sg5 once daily [Active]; clopidogrel 75 mg Oral tab 1 tab once daily [Active]; folic acid 1 mg Oral tab 1 tab once daily [Active]; furosemide 80 mg Oral tab 1 tab 2 times per day [Active]; Humalog U-100 Insulin 100 unit/mL Sub-Q crtg three times a day [Active]; Humira 40 mg/0.8 mL subcutaneous sykt every 2 wks [Active]; Levemir U-100 Insulin 100 unit/mL subcutaneous soln 50 unit twice a day [Active]; lisinopril 5 mg Oral tab 1 tab once daily [Active]; methotrexate sodium 2.5 mg Oral tab 5 tabs once wkly [Active]; metolazone 2.5 mg Oral tab 1 tab once daily [Active]; metoprolol tartrate 25 mg Oral tab 1 tab once daily [Active]; omeprazole 20 mg Oral cpDR 1 cap once daily [Active]; potassium chloride 20 mEq Oral TbER 1 tab 2 times per day [Active]; trazodone 50 mg Oral tab 1 tab once daily [Active]; - PMHx: 08/18 20:45 AFIB; Crohn's Disease; diabetes mellitus; Hypertensive disorder; nj1 - PSHx: 20:45 heart SX; pacemaker; nj1 - Immunization history:: Client reports receiving the 2nd dose of the Covid vaccine. - Social history:: Smoking status: Patient/guardian denies using tobacco, but has a distant history of tobacco abuse. - Family history:: not pertinent. ROS: 08/19 02:42 Constitutional: Negative for fever, chills, and weight loss, Eyes: Negative for injury, sp4 pain, redness, and discharge, ENT: Negative for injury, pain, and discharge, Neck: Negative for injury, pain, and swelling, Cardiovascular: Negative for chest pain, palpitations, and edema, Respiratory: Negative for shortness of breath, cough, wheezing, and pleuritic chest pain, Abdomen/GI: Negative for constipation, positive for diffuse abdominal pain, abdominal cramps, diarrhea, bloody diarrhea, vomiting and nausea. Back: Negative for injury and pain, : Negative for injury, bleeding, discharge, and swelling, MS/Extremity: Negative for injury and deformity, Skin: Negative for injury, rash, and discoloration, Neuro: Negative for headache, weakness, numbness, tingling, and seizure, Psych: Negative for depression, anxiety, Allergy/Immunology: Negative for hives, rash, and allergies Endocrine: Negative for neck swelling, polydipsia, polyuria, polyphagia, and weight changes Exam: 02:42 Constitutional: This is a well developed, well nourished patient who is awake, alert, sp4 and in no acute distress. Head/Face: Normocephalic, atraumatic. Eyes: Pupils equal round and reactive to light, extra-ocular motions intact. Lids and lashes normal. Conjunctiva and sclera are not injected. Cornea within normal limits. Periorbital areas with no swelling, redness, or edema. ENT: Nares patent. No nasal discharge, no septal abnormalities noted. Tympanic membranes are normal and external auditory canals are clear. Oropharynx with no redness, swelling, or masses, exudates, or evidence of obstruction, uvula midline. Mucous membranes moist. Neck: Trachea midline, no thyromegaly or masses palpated, and no cervical lymphadenopathy. Supple, full range of motion without nuchal rigidity, or vertebral point tenderness. No Meningismus. Chest/axilla: Normal chest wall appearance and motion. Nontender with no deformity. No lesions are appreciated. Cardiovascular: Regular rate and rhythm with a normal S1 and S2. No gallops, murmurs, or rubs. Normal PMI, no JVD. No pulse deficits. Respiratory: Lungs have equal breath sounds bilaterally, clear to auscultation and percussion. No rales, rhonchi or wheezes noted. No increased work of breathing, no retractions or nasal flaring. Abdomen/GI: Soft,. No distension or tympany. No guarding or rebound. Diffuse abdominal discomfort secondary to palpation. Back: No spinal tenderness. No costovertebral tenderness. Skin: Warm, dry with normal turgor. Normal color with no rashes, no lesions, and no evidence of cellulitis. MS/ Extremity: Pulses equal, no cyanosis. Neurovascular intact. Full, normal range of motion. Neuro: Awake and alert, GCS 15, oriented to person, place, time, and situation. Cranial nerves II-XII grossly intact. Motor strength 5/5 in all extremities. Sensory grossly intact. Psych: Awake, alert, with orientation to person, place and time. Behavior, mood, and affect are within normal limits 02:42 Abdomen/GI: Rectal exam: is unremarkable, Female credit card associate present, there is no tenderness, no hemorrhoid, no fissure, no fistula, no blood, no melena, no maroon stool. Vital Signs: 08/18 20:43 BP 162 / 63; Pulse 74; Resp 18; Temp 98.5; Pulse Ox 93% on R/A; Weight 112.04 kg (R); nj1 Height 5 ft. 4 in. ; Pain 6/10; 21:45 BP 164 / 63; Pulse 74; Resp 18; Pulse Ox 97% ; jj7 22:45 BP 146 / 68; Pulse 70; Resp 19; Pulse Ox 96% ; Pain 0/10; jj7 23:45 BP 144 / 66; Pulse 72; Resp 17; Pulse Ox 95% ; Pain 0/10; jj7 08/19 00:45 BP 143 / 61; Pulse 73; Resp 20; jj7 01:42 BP 141 / 57; Pulse 70; Resp 16; Pulse Ox 95% ; jj7 02:30 BP 148 / 62; Pulse 70; Resp 20; Pulse Ox 92% ; jj7 03:30 BP 160 / 64; Pulse 75; Resp 17; Pulse Ox 94% ; j7 08/18 20:43 Body Mass Index 42.40 (112.04 kg, 162.56 cm) nj1 08/18 20:43 Pain Scale: Adult nj1 22:45 Pain Scale: Adult jj7 23:45 Pain Scale: Adult jj7 MDM: 08/18 21:14 Patient medically screened. sp4 08/19 02:42 Differential diagnosis: Crohn's disease exacerbation. Data reviewed: vital signs, sp4 nurses notes, old medical records, lab test result(s), radiologic studies, CT scan. ED course: Labs reveal marked hypokalemia potassium 2.6. . 02:58 Consideration of Admission/Observation Patient was admitted/placed on observation. sp4 Escalation of care including admission/observation considered. Management of patient was discussed with the following: Hospitalist: Admitting MD Herminia Fuchs. ED course: [facility] revealed moderate hypokalemia potassium 2.6, CT revealed consistent with acute sigmoid colon diverticulitis without evidence of perforation or diverticular abscess. Remote cholecystectomy with mild dilatation of the common bile duct. No evidence for choledocholithiasis. Approximately 9 mm fat-containing mass arising from the lower pole of the right kidney representing small renal angiomyolipoma. Nonobstructing right renal calculus. Postsurgical changes involving the right hemicolon. Suspected prior hysterectomy. Degenerative changes along thoracolumbar spine. Mild cardiomegaly. Remote median sternotomy.. ED course: Patient warrants admission for acute diverticulitis and potassium replacement.. 08/18 21:02 Order name: Glucose, Ancillary Testing; Complete Time: 23:51 EDMS 08/18 21:12 Order name: CBC with Diff; Complete Time: 23:51 sp4 08/18 21:12 Order name: CMP; Complete Time: 05:51 sp4 08/18 21:12 Order name: Lipase; Complete Time: 05:51 sp4 08/18 21:12 Order name: Urinalysis w/ reflexes; Complete Time: 01:33 sp4 08/18 21:13 Order name: Blood Culture Adult (2) sp4 08/18 21:13 Order name: PT-INR; Complete Time: 01:08 sp4 08/18 21:14 Order name: Type And Screen; Complete Time: 01:47 sp4 08/19 05:24 Order name: T4 Free; Complete Time: 05:51 EDMS 08/19 08:20 Order name: Glucose, Ancillary Testing EDMS 08/19 13:28 Order name: Glucose, Ancillary Testing EDMS 08/19 16:45 Order name: Glucose, Ancillary Testing EDMS 08/19 01:33 Order name: CT Abd/Pelvis - Without Contrast sp4 08/18 21:12 Order name: IV Saline Lock; Complete Time: 22:21 sp4 08/18 21:12 Order name: Labs collected and sent; Complete Time: 22:21 sp4 Administered Medications: 08/18 22:45 Drug: Ondansetron IVP 4 mg Route: IVP; Site: left forearm; jj7 23:15 Follow up: Response: Nausea is decreased jj7 22:45 Drug: fentaNYL (PF) IVP 50 mcg Route: IVP; Site: left forearm; jj7 23:18 Follow up: Response: Pain is decreased jj7 22:45 Drug: NS 0.9% IV 1000 ml Route: IV; Rate: 125 ml/hr; Site: left forearm; jj7 08/19 01:40 Drug: fentaNYL (PF) IVP 50 mcg Route: IVP; Site: left wrist; jj7 03:47 Follow up: Response: Marked relief of symptoms jj7 01:40 Drug: Promethazine PO 25 mg Route: PO; jj7 03:47 Follow up: Response: Marked relief of symptoms jj7 01:40 Drug: Pantoprazole IVP 40 mg Route: IVP; Site: left wrist; jj7 03:47 Follow up: Response: Marked relief of symptoms jj7 03:46 Drug: metroNIDAZOLE IVPB 500 mg Volume: 100 ml; Route: IVPB; Rate: 200 ml/hr; Infused jj7 Over: 30 mins; Site: left forearm; 03:47 Drug: Potassium Chloride PO 40 mEq Route: PO; jj7 04:55 Follow up: Response: No adverse reaction jj7 03:47 Drug: Rocephin - Rocephin (cefTRIAXone) IVPB 1 grams Route: IVPB; Infused Over: 30 jj7 mins; Site: left forearm; 04:10 Follow up: IV Status: Completed infusion jj7 04:10 Follow up: IV Status: Completed infusion jj7 04:55 Drug: Potassium Chloride IV 20 mEq Route: IV; Rate: calculated rate; Site: left wrist; jj7 Disposition Summary: 08/19/22 03:03 Hospitalization Ordered Hospitalization Status: Inpatient Admission sp4 Condition: Stable sp4 Problem: new sp4 Symptoms: have improved sp4 Bed/Room Type: Standard sp4 Provider: Abdiaziz Fuchs(08/19/22 03:08) zenia Location: Telemetry/MedSurg (Inpatient)(08/19/22 17:21) bd Room Assignment: 414(08/19/22 17:21) bd Diagnosis - Diverticulitis of large intestine without perforation or abscess with bleeding sp4 - Acute hypokalemia, history of Crohn's disease, acute sigmoid diverticulitis sp4 associated with rectal bleeding. Forms: - Medication Reconciliation Form sp4 - SBAR form sp4 Signatures: Dispatcher [employer] EDMS Monika Lara Kimberly, RN RN kl Attema, Lee, FNP-Juan [id number] Say Gibbs RN RN jj7 Naren Arshad MD MD sp4 Aneta Connelly RN RN sg5 Dawna Gomez RN RN nj1 Corrections: (The following items were deleted from the chart) 01:37 08/18 21:13 Abdomen Pelvis W Con+CT.RAD.BRZ ordered. EDMS EDMS 08/19 03:08 03:03 Naren Arshad sp4 kl 03:09 03:03 Telemetry/MedSurg (Inpatient) sp4 kl 03:09 03:03 sp4 kl 17:21 03:09 [facility] ER HOLD kl bd 17:21 03:09 ERHOLD- kl bd
[2022-08-19] MEDS ORDERED: CEFTRIAXONE 1000 MG/VIAL ONE ×2 (03:36→09:03)
[2022-08-19] MEDS ORDERED: POTASSIUM CL SA 10 MEQ TAB PO ONE (03:36)
[2022-08-19] MEDS ORDERED: NA CHLORIDE 0.9% 50 ML ONE ×2 (03:37→09:03)
[2022-08-19] MEDS ORDERED: METRONIDAZOLE 500mg IVPB 500 MG/100 ML BAG IV ONE ×3 (03:37→17:38)
[2022-08-19] MEDS ORDERED: KCL 20 MEQ/100 mL IVPB 100 ML IV ONE (03:38)
[2022-08-19] MEDS ORDERED: ACETAMINOPHEN 500 MG TAB PO PRN (04:19)
[2022-08-19] MEDS: NS KCL 20MEQ 20 MEQ/1,000 ML BAG IV SCH ×3 (04:19→23:09)
[2022-08-19] MEDS: INSULIN -REGULAR HUMAN 50 UNIT/0.5 ML ML SQ SCH ×4 (07:30→22:15)
[2022-08-19] MEDS: CEFTRIAXONE 1,000 MG in NA CHLORIDE 0.9% 50 ML IVPB SCH ×2 (08:59→22:14)
[2022-08-19] MEDS ORDERED: CEFTRIAXONE 1,000 MG in NA CHLORIDE 0.9% 50 ML IVPB SCH (09:00)
[2022-08-19] MEDS: METRONIDAZOLE 500mg IVPB 500 MG/100 ML BAG IV SCH ×2 (09:00→17:00)
[2022-08-19] MEDS ORDERED: INSULIN -REGULAR HUMAN 50 UNIT/0.5 ML ML ONE ×3 (09:03→17:29)
--- NOTE | 2022-08-19 12:06 | RAD REPORT ---
EXAM DESCRIPTION: CT abdomen and pelvis without intravenous contrast CLINICAL HISTORY: 76 years Female ABD PAIN TECHNIQUE: Axial CT imaging of the abdomen and pelvis was performed without oral or intravenous cont rast. Sagittal and coronal reconstructed images were then performed. The CT study is performed acco rding to ALARA (as low as reasonably achievable) or ALARA/IMAGE GENTLY, with automatic adjustment of mA and/or kV according to patient size. Performed on: 08/19/2022 at 1:51 AM COMPARISON: None. FINDINGS: Lung bases: The lung bases are clear. There is minimal bibasilar atelectasis and/or fibros is. The heart is mildly enlarged. Pacemaker wires extend into the right atrium and right ventricle. T here is a prosthetic mitral valve. There are remote postsurgical changes of the mediastinum. Liver: The liver is normal in size and configuration. No focal hepatic abnormalities are appreciated on this unenhanced scan. Liver attenuation is within normal limits. Spleen: The spleen is normal in size, configuration and attenuation. No focal splenic abnormalities a re appreciated on this unenhanced scan. Gallbladder and bile duct: The gallbladder is surgically absent. There is mild dilatation of the co mmon bile duct likely physiologic in nature following a cholecystectomy. There is no evidence of justin k choledocholithiasis. Pancreas: The pancreas is grossly normal in size and configuration. Adrenal Glands: The adrenal glands are normal in size and configuration. Kidneys: The kidneys are normal in size and configuration. There is no evidence of hydronephrosis. Th ere is no evidence of nephrolithiasis. There is an approximately 9 mm fat-containing mass arising fro m the lower pole of the right kidney likely representing a small renal angiomyolipoma. There is also a nonobstructing right renal calculus in the mid to upper pole of the right kidney. Stomach: The stomach is grossly normal. There is no definite hiatal hernia. Bowel: The bowel gas pattern is non specific and non obstructive. There is colonic diverticulosis par ticularly involving the sigmoid portion of the colon where there is also pericolonic inflammation con sistent with acute diverticulitis. There is no evidence of perforation or peridiverticular abscess. T here are postsurgical changes involving the right hemicolon and there are surgical clips in the right hemiabdomen. Appendix: The appendix is not visualized and is likely surgically absent. Free air: There is no evidence of free air. Free fluid: There is no evidence of free fluid. Vasculature: The aorta is normal in caliber and contour. The inferior vena cava is grossly unremarkab le. There are mild atherosclerotic calcifications along the abdominal aorta. Lymphadenopathy: No pathologic lymphadenopathy is identified. Bladder: The bladder is incompletely distended on this examination. Reproductive: The uterus is not identified and is likely surgically absent. Bones: No acute osseous abnormalities are identified. There are degenerative changes along the thorac olumbar spine and pelvis. There is a hemangioma involving the L3 vertebral body. Soft tissues: No acute soft tissue abnormalities are identified. There is mild infiltration of the lock bcutaneous fat along the anterior abdominal wall which may be related to prior postsurgical scarring. IMPRESSION: 1. Findings consistent with acute sigmoid colon diverticulitis without evidence of per foration or peridiverticular abscess. 2. Remote cholecystectomy with mild dilatation of the common bile duct likely physiologic in nature following a cholecystectomy. There is no evidence of sada choledocholithiasis. 3. Approximately 9 mm fat-containing mass arising from the lower pole of the right kidney likely re presenting a small renal angiomyolipoma. 4. Nonobstructing right renal calculus. 5. Postsurgical changes involving the right hemicolon. 6. Suspect prior hysterectomy. 7. Degenerative changes along the thoracolumbar spine and pelvis. 8. Mild cardiomegaly and remote median sternotomy. Electronically signed by: Adela Chapin DO 08/19/2022 2:47 AM CDT Due to temporary technical issues with the PACS/Fluency reporting system, reports are being signed by the in house radiologist without review as a courtesy to ensure prompt reporting. The interpreting r adiologist is fully responsible for the content of the report.
[2022-08-19] MEDS: HYDROMORPHONE HCL 0.5 MG/0.5 ML INJ IV PRN (23:01)
[2022-08-20] MEDS: METRONIDAZOLE 500mg IVPB 500 MG/100 ML BAG IV SCH ×3 (01:40→16:25)
[2022-08-20 06:27] LABS: Magnesium 1.5 mg/dL (1.6-2.4)
[2022-08-20] MEDS ORDERED: POTASSIUM CL SA 10 MEQ TAB PO ONE (06:52)
[2022-08-20] MEDS: INSULIN -REGULAR HUMAN 50 UNIT/0.5 ML ML SQ SCH ×4 (07:30→21:05)
--- NOTE | 2022-08-20 07:40 | HP ---
Date of Admission: 08/19/2022 Chief Complaint: Abdominal cramps, diarrhea, and bleeding. History Of Present Illness: Ms. Taylor is a 76-year-old pleasant female patient with longstanding history of Crohn disease, was doing fine in her normal usual state of health until last 2 days. She started to have abdominal cramps mostly in the lower abdomen associated with some diarrhea as well as bleeding per rectum. She called her hairpiece stylist, Dr. Romero. She could not get appointment to see him until , so that is why she came to the emergency room. After she was evaluated, she was admitted to the hospital. Denies any fever, chills, nausea, vomiting. When I saw her this morning, she was in the emergency room. Allergies: TO MORPHINE, DETAILS UNKNOWN; CIPRO, CAUSING JOINT PAIN. Review of Systems: GI: As mentioned above. All other systems reviewed and negative. Medications: Amlodipine 5 mg daily, aspirin 81 mg daily, atorvastatin 40 mg daily at bedtime, Slow-Mag 1 tablet 3 times a day, clopidogrel 75 mg daily, folic acid 1 mg daily, furosemide 80 mg 2 times a day, Levemir insulin 50 units 2 times a day, Humalog insulin 10 units 3 times a day with meal, Victoza 1.8 mg subcutaneous injection daily, lisinopril 5 mg 2 times a day, methotrexate once a week, metolazone 2.5 mg, metoprolol tartrate 25 mg 2 times a day, omeprazole 20 mg daily, potassium chloride 20 mEq 3 times a day, trazodone 50 mg she takes half to 1 tablet at bedtime. Past Medical History: Significant for hypertension, hypothyroidism, type 2 diabetes mellitus, hyperlipidemia, chronic atrial fibrillation, Crohn disease, diverticulosis, osteoarthritis at multiple sites, pancytopenia, insomnia, hypomagnesemia. Past Surgical History: Cataract surgery in 2020, pacemaker placement, ablation, and mitral valve replacement surgery on December 19, 2021, coronary bypass surgery on December 19, 2021, pericardiectomy December 19, 2021, and left atrial appendage occlusion on December 19, 2021. In the past, she had cholecystectomy, partial resection of colon, hysterectomy, removal of basal cell carcinoma, and squamous cell carcinoma. Family History: Father , had aortic aneurysm and coronary artery disease. Mother , had colon cancer and hypertension. Sister has breast cancer. Social History: Prior history of smoking, not at present time. Use of alcohol, occasional. Physical Examination: Vital Signs: Height 5 feet 4 inches, weight 246 pounds, temperature 97.8, pulse 72, respiratory rate 16, blood pressure 141/51, oxygen saturation 95%. General: Awake, alert, oriented, not in distress. HEENT: Head atraumatic, normocephalic. Conjunctivae nonerythematous. Sclerae white. Mouth, no thrush or edema noted. Ears/Nose, no mass, lesion, discharge noted. Neck: Supple. No JVD, lymph nodes, bruit, thyromegaly noted. Lungs: Bilateral good equal air entry. Clear to auscultation. No rhonchi. No rales. Heart: Normal heart sounds, no murmur or gallop. Abdomen: Soft, bowel sounds normal. No guarding, rigidity, tenderness, mass, hepatosplenomegaly, distention, or bruit noted. Extremities: No leg edema. No calf tenderness. Skin: No rash, ulcer, cellulitis. Lymphatics: No lymph node enlargement in neck, supraclavicular, infraclavicular region. Neuro: No focal neurological deficit. Chest: Unremarkable. External Genitalia: Deferred. Rectal: Deferred. Laboratory Data: White count 10.5, hemoglobin 14.3, platelets 160. Sodium 135, potassium 2.6, chloride 95, bicarb 32, BUN 28, creatinine 0.93, glucose 162. Liver function tests unremarkable. Lipase 34. Urinalysis: Leukocyte esterase 250, wbc's 5 to 10, bacteria not seen. Impression: 1. Acute diverticulitis. 2. Crohn disease. 3. Hypokalemia. 4. Chronic atrial fibrillation. 5. Type 2 diabetes mellitus. 6. Hypertension. 7. Hyperlipidemia. 8. Diverticulosis. 9. Osteoarthritis, multiple sites. 10. Insomnia. 11. Hypomagnesemia. 12. Hypothyroidism. Plan: We will go ahead and admit the patient to hospital for further evaluation and management of this problem. Patient is appropriate for inpatient and is expected to spend 2 midnights in hospital. Start antibiotic as per order. I have ordered stool culture as well as stool for Clostridium difficile toxin. She has not used any antibiotics recently. Diabetes will be managed with sliding scale insulin per order. We will go ahead and give DVT prophylaxis per order. For hypertension, we will continue antihypertensive medication per order. The patient says that her supervisor spinning has not given her any clearance as requested by her hairpiece stylist for colonoscopy to discontinue her anti-platelet therapy, so she will plan to get such procedure done, so that supervisor spinning gives her clearance in the future. We will start her on liquid diet and then advance diet as tolerated. Details and plan of treatment discussed with her. JESSICA/ONI Voice ID: [id number] [email or web address]
[2022-08-20] MEDS: NS KCL 20MEQ 20 MEQ/1,000 ML BAG IV SCH ×2 (07:57→21:04)
[2022-08-20] MEDS: ASPIRIN EC 81 MG TAB PO SCH (08:55)
[2022-08-20] MEDS: CLOPIDOGREL 75 MG TABLET PO SCH (08:55)
[2022-08-20] MEDS: INSULIN GLARGINE 100 UNIT/ML SQ SCH ×2 (08:56→21:04)
[2022-08-20] MEDS: METOPROLOL TAR 25 MG TAB PO SCH ×2 (08:56→21:09)
[2022-08-20] MEDS: MAGNESIUM OXIDE 400 MG TAB PO SCH ×2 (08:56→21:00)
[2022-08-20] MEDS: CEFTRIAXONE 1,000 MG in NA CHLORIDE 0.9% 50 ML IVPB SCH ×2 (08:56→21:04)
[2022-08-20] MEDS: ONDANSETRON 4 MG/2 ML VIAL IV PRN (08:57)
[2022-08-20] MEDS ORDERED: Magnesium Sulfate 2gm IVPB 2 G/50 ML BAG IV ONE (09:00)
[2022-08-20 18:30] VITALS: BMI 42.2
[2022-08-20] MEDS: HYDROMORPHONE HCL 0.5 MG/0.5 ML INJ IV PRN (21:03)
[2022-08-20] MEDS: ATORVASTATIN 40 MG TAB PO SCH (21:09)
[2022-08-20] MEDS: TRAZODONE 50 MG TABLET PO SCH (21:10)
--- NOTE | 2022-08-20 21:23 | PN ---
Date of Progress Note: 08/20/2022 Subjective: The patient was seen this morning for followup. No new complaints or problems reported by her. She was lying in bed, not in any distress. Denies any rectal bleeding. Her lower abdominal cramps are better. No nausea, no vomiting. Objective: Vital Signs: Reviewed. HEENT: Unremarkable. Lungs: Clear to auscultation. Heart: Sounds normal. Abdomen: Soft. Bowel sounds normal. No guarding, rigidity, tenderness, or distention. Extremities: No leg edema. Laboratory Data: Sodium 136, potassium , glucose 205, magnesium 1.5. Impression: 1.Lower gastrointestinal bleeding. 2.Hypokalemia. 3.Hypomagnesemia. 4.Hypertension. 5.Diabetes mellitus. Plan: We will go ahead and start the patient on insulin injection per order. We will also continue sliding scale insulin and continue antihypertensive medication per order. We will continue current a ntibiotics. Advance diet as she tolerates and I will see her tomorrow for followup. Possible discha rge to go home tomorrow, depending on her condition. JESSICA/MODL Voice ID: [id number] Report ID: [id number]
[2022-08-21] MEDS: METRONIDAZOLE 500mg IVPB 500 MG/100 ML BAG IV SCH ×3 (00:52→16:22)
[2022-08-21] MEDS: HYDROMORPHONE HCL 0.5 MG/0.5 ML INJ IV PRN (01:58)
[2022-08-21] MEDS: PANTOPRAZOLE 40MG TABLET PO SCH (05:41)
[2022-08-21 08:33] LABS: Magnesium 2.2 mg/dL (1.6-2.4)
[2022-08-21] MEDS: INSULIN GLARGINE 100 UNIT/ML SQ SCH ×2 (08:56→21:00)
[2022-08-21] MEDS: CEFTRIAXONE 1,000 MG in NA CHLORIDE 0.9% 50 ML IVPB SCH ×2 (08:57→21:01)
[2022-08-21] MEDS: CLOPIDOGREL 75 MG TABLET PO SCH (08:57)
[2022-08-21] MEDS: MAGNESIUM OXIDE 400 MG TAB PO SCH ×2 (08:57→20:59)
[2022-08-21] MEDS: METOPROLOL TAR 25 MG TAB PO SCH ×2 (08:57→20:59)
[2022-08-21] MEDS: INSULIN -REGULAR HUMAN 50 UNIT/0.5 ML ML SQ SCH ×4 (08:57→21:00)
[2022-08-21] MEDS: ASPIRIN EC 81 MG TAB PO SCH (08:57)
[2022-08-21] MEDS: ONDANSETRON 4 MG/2 ML VIAL IV PRN ×2 (12:08→22:22)
--- NOTE | 2022-08-21 19:05 | PN ---
Date of Progress Note: 08/21/2022 Subjective: The patient was seen this morning for followup. No new complaints or problems reported by the patient. Reports that her diarrhea is better, lower abdominal pain is better. She did not am bulate yesterday because of diarrhea, but she was encouraged today to do so. Objective: Vital Signs: Reviewed. HEENT: Unremarkable. Lungs: Clear to auscultation. Heart: Sounds normal. Abdomen: Soft. Bowel sounds normal. No guarding, rigidity, distention noted. Mild tenderness in l eft lower quadrant better than before. Extremities: No leg edema. Laboratory Data: Reviewed. Impression: 1.Acute diverticulitis. 2.Hypertension. 3.Diabetes mellitus. 4.Anemia. Plan: We will go ahead and continue current antibiotics. The patient was encouraged to ambulate. W e will discontinue IV fluid. She is tolerating diet very well. Possible discharge tomorrow dependin g on her condition. Continue current diabetes management and antihypertensive medication JESSICA/MODL Voice ID: [id number] Report ID: [id number]
[2022-08-21] MEDS: TRAZODONE 50 MG TABLET PO SCH (20:59)
[2022-08-21] MEDS: ATORVASTATIN 40 MG TAB PO SCH (21:00)
[2022-08-21 21:34] LABS: C.diff Antigen/Toxin Ag neg : Tox neg (NEG : NEG)
[2022-08-22] MEDS: METRONIDAZOLE 500mg IVPB 500 MG/100 ML BAG IV SCH ×2 (00:15→08:40)
[2022-08-22 00:33] VITALS: O2SAT 92
[2022-08-22] MEDS: PANTOPRAZOLE 40MG TABLET PO SCH (05:43)
[2022-08-22] MEDS: INSULIN -REGULAR HUMAN 50 UNIT/0.5 ML ML SQ SCH ×2 (07:30→11:24)
[2022-08-22] MEDS: CLOPIDOGREL 75 MG TABLET PO SCH (08:21)
[2022-08-22] MEDS: METOPROLOL TAR 25 MG TAB PO SCH (08:22)
[2022-08-22] MEDS: INSULIN GLARGINE 100 UNIT/ML SQ SCH (08:22)
[2022-08-22] MEDS: MAGNESIUM OXIDE 400 MG TAB PO SCH (08:22)
[2022-08-22] MEDS: ASPIRIN EC 81 MG TAB PO SCH (08:22)
[2022-08-22] MEDS: CEFTRIAXONE 1,000 MG in NA CHLORIDE 0.9% 50 ML IVPB SCH (08:40)
[2022-08-22 12:15] VITALS: BP 122/53; TEMP 98.2
--- NOTE | 2022-08-22 13:20 | DS ---
Date of Discharge: 08/22/2022 Disposition: Discharged to go home. Physical Examination: HEENT: Unremarkable. Lungs: Clear to auscultation. Heart: Sounds normal. Abdomen: Soft. Bowel sounds normal. No guarding, rigidity, tenderness, distention. Extremities: No leg edema. Discharge Medications And Instructions: 1.Continue all prior home medications. 2.Start Augmentin 875 mg, the patient to take 1 tablet by mouth 2 times a day with food for 1 week. 3.Follow up at my office next week. Call office for appointment. 4.The patient to eat yogurt 2 times a day. 5.The patient was advised to use Imodium 2 mg tablet, 1 tablet by mouth 4 times a day as needed for diarrhea. Hospital Course: This is a 76-year-old pleasant female patient, came into emergency room with abdomi nal cramps, diarrhea, and bleeding per rectum. Please see dictated H and P for more information. Af ter the patient was evaluated in the ER, she was admitted to the hospital with acute diverticulitis p corwin. The patient was started on IV antibiotics and her home medications were restarted. She was also taking clopidogrel at home, which was restarted. Her bleeding problem has stopped and has not h ad any recurrence of bleeding problem. As of last night, nursing staff had trouble getting IV access after they lost IV access and multiple attempts were made to restart IV access and it was unsuccessf ul. This morning when I saw the patient, she informed me that she had 1 larger bowel movement this m orning and she says her daughter was concerned about her going home and I informed the patient that wanda cedeño clinically her condition has improved and she is stable for discharge. If the diarrhea proble m gets worse, then she may require hospital care, but otherwise not with what she is describing, so i t will be appropriate for her to go home with all the appropriate instruction that was given to her t sujata. She also was told to use oxygen all the time right now because at home she uses oxygen at nigh ttime and as needed during daytime, but I have advised her to use it all the time at least to start w ith at 2 L/minute nasal cannula. Final Diagnoses: 1.Acute diverticulitis. 2.Crohn disease. 3.Hypokalemia. 4.Chronic atrial fibrillation. 5.Type 2 diabetes mellitus. 6.Hypertension. 7.Hyperlipidemia. 8.Diverticulosis. 9.Osteoarthritis, multiple sites. 10.Hypomagnesemia. 11.Hypothyroidism. 12.Insomnia. JESSICA/MODL Voice ID: [id number] Report ID: [id number]
== END 2022-08-22 13:50 | disposition home or self-care (01) | DRG 378 ==
LOC: ER 19:46 → ERHOLD 08-19 03:11 → 4TH 08-19 17:56
PROVIDERS: ADMIT Internal Medicine; ATTEND Internal Medicine
DX: K57.93 Diverticulitis of intestine, part unspecified, without perforation or abscess with bleeding (principal); D61.818 Other pancytopenia; K50.90 Crohn's disease, unspecified, without complications; I48.20 Chronic atrial fibrillation, unspecified; I10 Essential (primary) hypertension; E11.9 Type 2 diabetes mellitus without complications; E03.9 Hypothyroidism, unspecified; E78.5 Hyperlipidemia, unspecified; M15.9 Polyosteoarthritis, unspecified; G47.00 Insomnia, unspecified; E83.42 Hypomagnesemia; E87.6 Hypokalemia
CPT/HCPCS: 36415; 74176; 80048; 80053; 81001; 82947; 83690; 83735; 84439; 85025; 85610; 86850; 86900; 86901; 87040; 87045; 87046; 87324; 97116; 97161; 97530; 99285; C9113; J0696; J1170; J1815; J2405; J3010; J3475; J3480; J7030; Q0169

== ENCOUNTER 2023-08-16 12:32 | Inpatient (IN) | payer OTHER ==
--- OUTSIDE RECORDS SUMMARY | 2023-08-16 12:51 | XMS REPORT | Continuity of Care Document ---
Author Name Unknown Address [address] [facility] [address] [place] [address] [facility] Address [address] [facility] [place] [address] Care Team Providers Care Tax Manager Public Name Role Phone Dong Fuchs Attending Clinician Unavailable KRANTHI_GCBZW_Kadijuana_S Attending Clinician UnavailJesus Garcia Attending Clinician Unavail able Jeffry More Attending Clinician Unavailable GC_GCBZW_Kadiyala_S Admitting Clinician UnavailJesus Garcia Admitting Clinician Unavail able Jeffry More Admitting Clinician Unavailable Dong Fuchs Admitting Clinician Unavailable Payers Payer Name Policy Type Policy Number Effective Date Expirati on Date Source Allergies, Adverse Reactions, Alerts Allergy Name Allergy Type Status Severity Reaction(s) Onset Date Inactive Date Treating Clinician Comments Source morphine DA Active SV RASH, SWELLING 2021-03 00:00: 00 [facility] ciproflo xacin DA Active SV JOINT PAIN 2021-03 00:00: 00 [facility] morphine DA Active SV RASH, SWELLING 12-12 00:00: 00 [facility] ciproflo xacin DA Active SV JOINT PAIN 12-12 00:00: 00 [facility] Procedures Procedure Date / Time Performed Performing Clinicia n Source [id number] 2022-01-07 00:00:00 FRANCISCA[facility] [id number] 2022-01-07 00:00:00 GIBJE.01 [facility] [id number] 2022-01-07 00:00:00 GIBJE.01 [facility] [id number] 2022-01-07 00:00:00 GIBJE.01 [facility] [id number] 2021-12-26 00:00:00 ALKNE [facility] [id number] 2021-12-26 00:00:00 ALKNE [facility] [id number] 2021-12-24 00:00:00 HYD [facility] [id number] 2021-12-24 00:00:00 HYD [facility] [id number] 2021-12-24 00:00:00 [facility] [id number] 2021-12-19 00:00:00 MOUAN [facility] [id number] 2021-12-19 00:00:00 CHAAB.01 [facility] [id number] 2021-12-19 00:00:00 CHAAB.01 [facility] [id number] 2021-12-19 00:00:00 CHAAB.01 [facility] [id number] 2021-12-19 00:00:00 CHAAB.01 [facility] [id number] 2021-12-19 00:00:00 CHAAB.01 [facility] [id number] 2021-12-19 00:00:00 CHAAB.01 [facility] [id number] 2021-12-19 00:00:00 [facility]KNE [facility] [id number] 2021-12-19 00:00:00 ALKNE [facility] [id number] 2021-12-19 00:00:00 ALKNE [facility] [id number] 2021-12-19 00:00:00 ALKNE [facility] [id number] 2021-12-19 00:00:00 ALKNE [facility] [id number] 2021-12-19 00:00:00 ALKNE [facility] [id number] 2021-12-19 00:00:00 ALKNE [facility] [id number] 2021-12-19 00:00:00 ALKNE [facility] [id number] 2021-12-17 00:00:00 RASSA [facility] [id number] 2021-12-17 00:00:00 RASSA [facility] Encounters Start Date/Time End Date/Time Encounter Type Admission Type Attending Clinicians Care Facility Care Department Encounter ID Source 2023-07-28 09:56:00 Outpatient Fuchs, Dong STLMLC STLMLC [id number] [facility] 2023-05-26 11:28:00 Outpatient Fuchs, Dong STLMLC STLMLC [id number] [facility] 2021-09-04 14:26:02 Outpatient Fuchs, Dong STLMLC STLMLC [id number] [facility] 2021-06-25 10:03:03 Outpatient STLMLC STLMLC [id number] [facility] 2021-06-18 08:37:02 Outpatient STLMLC STLMLC [id number] [facility] 2021-06-13 10:29:05 Outpatient STLMLC STLMLC [id number] [facility] 2023-01-13 00:00:00 2023-01-13 00:00:00 Outpatient GC_GCBZW_Ka arunaa_S [facility] [id number] [facility] 2022-01-07 19:57:00 2022-01-21 23:59:00 Inpatient SHUKRI Landry Jesus [facility] REHA [id number] [facility] 2021-12-17 12:00:00 2022-01-07 19:20:00 Inpatient EL Janea, Jeffry [facility]L INTE [id number] [facility] 2021-12-12 08:00:00 2021-12-12 09:00:[address] [facility]ACL ZZZB [id number] [facility] Results Test Description Test Time Test Comments Results Result Co mments Source CBC W/AUTO [id number] 08:16:00* Test Item Value Reference Range Interpretation Comme nts WHITE BLOOD CELL (test code = WBC) 5.2 x10 3/uL 4.5-11.0 N RED BLOOD CELL (test code = RBC) 2.56 x10 6/uL 3.54-5.02 L HEMOGLOBIN (test code = HGB) 10.6 g/dL 11.0-15.0 L HEMATOCRIT (test code = HCT) 29.1 % 33.0-45.0 L MEAN CELL VOLUME (test code = MCV) 113.7 fL 81.0-99.0 H MEAN CELL HGB (test code = MCH) 41.4 pg 27.0-33.0 H MEAN CELL HGB CONCETRATION (test code = MCHC) 36.4 g/dL 33.0-37.0 N RED CELL DISTRIBUTION WIDTH CV (test code = RDW) 17.2 % 11.5-14.5 H RED CELL DISTRIBUTION WIDTH SD (test code = RDW-SD) 71.1 fL 37.0-54.0 H PLATELET COUNT (test code = PLT) 140 x10 3/uL 150-400 L MEAN PLATELET VOLUME (test c ode = MPV) 11.3 fL 7.0-9.0 H NEUTROPHIL % (test code = NT%) 73.0 % 56.0-77.0 N IMMATURE GRANULOCYTE % (test code = IG%) 0.4 % 0.0-2.0 N LYMPHOCYTE % (test code = LY%) 10.0 % 14.0-32.0 L MONOCYTE % (test code = MO%) 13.3 % 4.8-9.0 H EOSINOPHIL % (test code = EO%) 2.9 % 0.3-3.7 N BASOPHIL % (test code = BA%) 0.4 % 0.0-2.0 N NUCLEATED RBC % (test code = NRBC%) 0.0 % 0-0 N NEUTROPHIL # (test code = NT#) 3.79 x10 3/uL 2.0-7.6 N IMMATURE GRANULOCYTE # (test code = IG#) 0.02 x10 3/uL 0.00-0.03 N LYMPHOCYTE # (test code = LY#) 0.52 x10 3/uL 1.0-3.8 L MONOCYTE # (test code = MO#) 0.69 x10 3/uL 0.1-0.8 N EOSINOPHIL # (test code = EO#) 0.15 x10 3/uL 0.0-0.2 N BASOPHIL # (test code = BA#) 0.02 x10 3/uL 0.0-0.2 N NUCLEATED RBC # (test code = NRBC#) 0.00 x10 3/uL 0.0-0.1 N MANUAL DIFF REQUIRED (test c ode = MDIFF) NO BASIC METABOLIC [id number] 07:50:00* Test Item Value Reference Range Interpretation Comme nts SODIUM (test code = NA) 139 mEq/L 134-147 N POTASSIUM (test code = K) 3.5 mEq/L 3.4-5.0 N CHLORIDE (test code = CL) 100 mEq/L 100-108 N CARBON DIOXIDE (test code = CO2) 31 mEq/l 21-33 N ANION GAP (test code = GAP) 12 0-20 N GLUCOSE (test code = GLU) 84 mg/dL 70-110 N BLOOD UREA NITROGEN (test code = BUN) 8 mg/dL 7-18 GLOMERULAR FILTRATION RATE (test code = GFR) 65.4 70-80 L The Glomerular Filtration Rate is a calculated parameterbased on serum Creatinine, patient age and sex. GFR valuesless than 60 mL/min/1.73 square meters are indicative ofChronic Kidney Disease. Values less than 15 mL/min/1.73square meters indicate Kidney failure. The calculation forGFR is based on the CKD-EPI (2020) calculation. This formulais race indifferent and is the recommended formula for GFRby the National Kidney Foundation for Adults.The GFR will not calculate if the sex is unknown or if thepatient's age is <18 years. CREATININE (test code = CREAT) 0.9 mg/dL 0.6-1.3 N CALCIUM (test code = CA) 9.6 mg/dL 8.0-10.5 N [id number] 07:50:00* Test Item Value Reference Range Interpretation Comme nts MAGNESIUM (test code = MAG) 2.05 mg/dL 1.80-2.40 N GLUCOSE [id number] 06:41:00* Test Item Value Reference Range Interpretation Comme nts GLUCOSE BEDSIDE (test code = GLUBED) 99 MG/DL 70-110 N Performed by cer tified fondant machine operator at [facility] GLUCOSE [id number] 20:16:00* Test Item Value Reference Range Interpretation Comme nts GLUCOSE BEDSIDE (test code = GLUBED) 196 MG/DL 70-110 H Performed by cer tified fondant machine operator at [facility] GLUCOSE [id number] 16:27:00* Test Item Value Reference Range Interpretation Comme nts GLUCOSE BEDSIDE (test code = GLUBED) 207 MG/DL 70-110 H Performed by cer tified fondant machine operator at [facility] GLUCOSE [id number] 11:35:00* Test Item Value Reference Range Interpretation Comme nts GLUCOSE BEDSIDE (test code = GLUBED) 161 MG/DL 70-110 H Performed by cer tified fondant machine operator at [facility] GLUCOSE [id number] 06:01:00* Test Item Value Reference Range Interpretation Comme nts GLUCOSE BEDSIDE (test code = GLUBED) 112 MG/DL 70-110 H Performed by cer tified fondant machine operator at [facility] GLUCOSE [id number] 19:38:00* Test Item Value Reference Range Interpretation Comme nts GLUCOSE BEDSIDE (test code = GLUBED) 197 MG/DL 70-110 H Performed by cer tified fondant machine operator at [facility] GLUCOSE [id number] 16:10:00* Test Item Value Reference Range Interpretation Comme nts GLUCOSE BEDSIDE (test code = GLUBED) 166 MG/DL 70-110 H Performed by cer tified fondant machine operator at [facility] GLUCOSE [id number] 11:37:00* Test Item Value Reference Range Interpretation Comme nts GLUCOSE BEDSIDE (test code = GLUBED) 136 MG/DL 70-110 H Performed by cer tified fondant machine operator at [facility] CBC W/AUTO [id number] 08:13:00* Test Item Value Reference Range Interpretation Comme nts WHITE BLOOD CELL (test code = WBC) 6.1 x10 3/uL 4.5-11.0 N RED BLOOD CELL (test code = RBC) 3.09 x10 6/uL 3.54-5.02 L HEMOGLOBIN (test code = HGB) 10.2 g/dL 11.0-15.0 L HEMATOCRIT (test code = HCT) 34.3 % 33.0-45.0 N MEAN CELL VOLUME (test code = MCV) 111.0 fL 81.0-99.0 H MEAN CELL HGB (test code = MCH) 33.0 pg 27.0-33.0 N MEAN CELL HGB CONCETRATION (test code = MCHC) 29.7 g/dL 33.0-37.0 L RED CELL DISTRIBUTION WIDTH CV (test code = RDW) 17.4 % 11.5-14.5 H RED CELL DISTRIBUTION WIDTH SD (test code = RDW-SD) 72.1 fL 37.0-54.0 H PLATELET COUNT (test code = PLT) 135 x10 3/uL 150-400 L MEAN PLATELET VOLUME (test c ode = MPV) 11.7 fL 7.0-9.0 H NEUTROPHIL % (test code = NT%) 76.8 % 56.0-77.0 N IMMATURE GRANULOCYTE % (test code = IG%) 0.3 % 0.0-2.0 N LYMPHOCYTE % (test code = LY%) 8.1 % 14.0-32.0 L MONOCYTE % (test code = MO%) 11.7 % 4.8-9.0 H EOSINOPHIL % (test code = EO%) 2.3 % 0.3-3.7 N BASOPHIL % (test code = BA%) 0.8 % 0.0-2.0 N NUCLEATED RBC % (test code = NRBC%) 0.0 % 0-0 N NEUTROPHIL # (test code = NT#) 4.66 x10 3/uL 2.0-7.6 N IMMATURE GRANULOCYTE # (test code = IG#) 0.02 x10 3/uL 0.00-0.03 N LYMPHOCYTE # (test code = LY#) 0.49 x10 3/uL 1.0-3.8 L MONOCYTE # (test code = MO#) 0.71 x10 3/uL 0.1-0.8 N EOSINOPHIL # (test code = EO#) 0.14 x10 3/uL 0.0-0.2 N BASOPHIL # (test code = BA#) 0.05 x10 3/uL 0.0-0.2 N NUCLEATED RBC # (test code = NRBC#) 0.00 x10 3/uL 0.0-0.1 N MANUAL DIFF REQUIRED (test c ode = MDIFF) NO BASIC METABOLIC [id number] 07:37:00* Test Item Value Reference Range Interpretation Comme nts SODIUM (test code = NA) 141 mEq/L 134-147 N POTASSIUM (test code = K) 3.4 mEq/L 3.4-5.0 N CHLORIDE (test code = CL) 100 mEq/L 100-108 N CARBON DIOXIDE (test code = CO2) 31 mEq/l 21-33 N ANION GAP (test code = GAP) 13 0-20 N GLUCOSE (test code = GLU) 92 mg/dL 70-110 N BLOOD UREA NITROGEN (test code = BUN) 15 mg/dL 7-18 N GLOMERULAR FILTRATION RATE (test code = GFR) 65.4 70-80 L The Glomerular Filtration Rate is a calculated parameterbased on serum Creatinine, patient age and sex. GFR valuesless than 60 mL/min/1.73 square meters are indicative ofChronic Kidney Disease. Values less than 15 mL/min/1.73square meters indicate Kidney failure. The calculation forGFR is based on the CKD-EPI (2020) calculation. This formulais race indifferent and is the recommended formula for GFRby the National Kidney Foundation for Adults.The GFR will not calculate if the sex is unknown or if thepatient's age is <18 years. CREATININE (test code = CREAT) 0.9 mg/dL 0.6-1.3 N CALCIUM (test code = CA) 9.3 mg/dL 8.0-10.5 N [id number] 07:37:00* Test Item Value Reference Range Interpretation Comme nts MAGNESIUM (test code = MAG) 1.90 mg/dL 1.80-2.40 N B-TYPE NATRIURETIC [id number] 07:14:00* Test Item Value Reference Range Interpretation Comme nts B-TYPE NATRIURETIC PEPTIDE ( test code = BNP) 241.0 PG/ML 0-100 H GLUCOSE [id number] 06:39:00* Test Item Value Reference Range Interpretation Comme nts GLUCOSE BEDSIDE (test code = GLUBED) 93 MG/DL 70-110 N Performed by cer tified fondant machine operator at [facility] GLUCOSE [id number] 01:49:00* Test Item Value Reference Range Interpretation Comme nts GLUCOSE BEDSIDE (test code = GLUBED) 77 MG/DL 70-110 N Performed by cer tified fondant machine operator at [facility] GLUCOSE [id number] 01:20:00* Test Item Value Reference Range Interpretation Comme nts GLUCOSE BEDSIDE (test code = GLUBED) 56 MG/DL 70-110 L Performed by cer tified fondant machine operator at [facility] GLUCOSE [id number] 20:14:00* Test Item Value Reference Range Interpretation Comme nts GLUCOSE BEDSIDE (test code = GLUBED) 192 MG/DL 70-110 H Performed by cer tified fondant machine operator at [facility] GLUCOSE [id number] 16:26:00* Test Item Value Reference Range Interpretation Comme nts GLUCOSE BEDSIDE (test code = GLUBED) 162 MG/DL 70-110 H Performed by cer tified fondant machine operator at [facility] GLUCOSE [id number] 12:27:00* Test Item Value Reference Range Interpretation Comme nts GLUCOSE BEDSIDE (test code = GLUBED) 128 MG/DL 70-110 H Performed by cer tified fondant machine operator at [facility] URINALYSIS [id number] 11:00:00* Test Item Value Reference Range Interpretation Comme nts UA COLOR (test code = COLU) YELLOW YEL/STRAW UA APPEARANCE (test code = APPU) SL CLOUDY CLEAR UA GLUCOSE DIPSTICK (test co de = DGLUU) NEGATIVE NEGATIVE UA BILIRUBIN DIPSTICK (test code = BILU) NEGATIVE NEGATIVE UA KETONE DIPSTICK (test cod e = KETU) NEGATIVE NEGATIVE UA SPECIFIC GRAVITY (test co de = SGU) 1.012 1.005-1.030 N UA BLOOD DIPSTICK (test code = LALY) NEGATIVE NEGATIVE UA PH DIPSTICK (test code = CLEMENTINA) 7.0 5.0-7.0 N UA PROTEIN DIPSTICK (test co de = PROU) NEGATIVE NEGATIVE UA UROBILINIOGEN DIPSTICK (t est code = URO) 2.0 mg/dL 0.2-1.0 A UA NITRITE DIPSTICK (test co de = SAMARIA) POSITIVE NEGATIVE A UA LEUKOCYTE ESTERASE DIPSTI CK (test code = LEUU) 1+ NEGATIVE A UA RBC (test code = RBCU) 0-3 RBC/HPF 0-3 UA WBC NO REFLEX (test code = WBCUCL) 0-3 WBC/HPF 0-3 UA BACTERIA (test code = BACU) 4+ /HPF NONE SEEN A UA SQUAMOUS CELLS (test code = SQU) 11-25 /HPF NONE SEEN A UA MUCUS (test code = MUCU) TRACE /LPF NONE SEEN BASIC METABOLIC [id number] 06:05:00* Test Item Value Reference Range Interpretation Comme nts SODIUM (test code = NA) 142 mEq/L 134-147 N POTASSIUM (test code = K) 3.4 mEq/L 3.4-5.0 N CHLORIDE (test code = CL) 102 mEq/L 100-108 N CARBON DIOXIDE (test code = CO2) 33 mEq/l 21-33 N ANION GAP (test code = GAP) 10 0-20 N GLUCOSE (test code = GLU) 80 mg/dL 70-110 N BLOOD UREA NITROGEN (test code = BUN) 16 mg/dL 7-18 N GLOMERULAR FILTRATION RATE (test code = GFR) 75.4 70-80 N The Glomerular Filtration Rate is a calculated parameterbased on serum Creatinine, patient age and sex. GFR valuesless than 60 mL/min/1.73 square meters are indicative ofChronic Kidney Disease. Values less than 15 mL/min/1.73square meters indicate Kidney failure. The calculation forGFR is based on the CKD-EPI (2020) calculation. This formulais race indifferent and is the recommended formula for GFRby the National Kidney Foundation for Adults.The GFR will not calculate if the sex is unknown or if thepatient's age is <18 years. CREATININE (test code = CREAT) 0.8 mg/dL 0.6-1.3 N CALCIUM (test code = CA) 9.3 mg/dL 8.0-10.5 N CALCIUM [id number] 06:05:00* Test Item Value Reference Range Interpretation Comme nts CALCIUM IONIZED (test code = TYREE) 1.15 MMOL/L 1.09-1.30 N GLUCOSE [id number] 05:24:00* Test Item Value Reference Range Interpretation Comme nts GLUCOSE BEDSIDE (test code = GLUBED) 78 MG/DL 70-110 N Performed by cer tified fondant machine operator at [facility] GLUCOSE [id number] 20:24:00* Test Item Value Reference Range Interpretation Comme nts GLUCOSE BEDSIDE (test code = GLUBED) 142 MG/DL 70-110 H Performed by cer tified fondant machine operator at [facility] GLUCOSE [id number] 17:17:00* Test Item Value Reference Range Interpretation Comme nts GLUCOSE BEDSIDE (test code = GLUBED) 157 MG/DL 70-110 H Performed by cer tified fondant machine operator at [facility] GLUCOSE [id number] 12:04:00* Test Item Value Reference Range Interpretation Comme nts GLUCOSE BEDSIDE (test code = GLUBED) 132 MG/DL 70-110 H Performed by cer tified fondant machine operator at [facility] CBC W/AUTO [id number] 10:36:00* Test Item Value Reference Range Interpretation Comme nts WHITE BLOOD CELL (test code = WBC) 4.4 x10 3/uL 4.5-11.0 L RED BLOOD CELL (test code = RBC) 2.87 x10 6/uL 3.54-5.02 L HEMOGLOBIN (test code = HGB) 10.1 g/dL 11.0-15.0 L HEMATOCRIT (test code = HCT) 32.7 % 33.0-45.0 L MEAN CELL VOLUME (test code = MCV) 113.9 fL 81.0-99.0 H MEAN CELL HGB (test code = MCH) 35.2 pg 27.0-33.0 H MEAN CELL HGB CONCETRATION (test code = MCHC) 30.9 g/dL 33.0-37.0 L RED CELL DISTRIBUTION WIDTH CV (test code = RDW) 17.8 % 11.5-14.5 H RED CELL DISTRIBUTION WIDTH SD (test code = RDW-SD) 74.3 fL 37.0-54.0 H PLATELET COUNT (test code = PLT) 111 x10 3/uL 150-400 L MEAN PLATELET VOLUME (test c ode = MPV) 11.0 fL 7.0-9.0 H NEUTROPHIL % (test code = NT%) 76.0 % 56.0-77.0 N IMMATURE GRANULOCYTE % (test code = IG%) 0.5 % 0.0-2.0 N LYMPHOCYTE % (test code = LY%) 8.6 % 14.0-32.0 L MONOCYTE % (test code = MO%) 11.4 % 4.8-9.0 H EOSINOPHIL % (test code = EO%) 3.0 % 0.3-3.7 N BASOPHIL % (test code = BA%) 0.5 % 0.0-2.0 N NUCLEATED RBC % (test code = NRBC%) 0.0 % 0-0 N NEUTROPHIL # (test code = NT#) 3.35 x10 3/uL 2.0-7.6 N IMMATURE GRANULOCYTE # (test code = IG#) 0.02 x10 3/uL 0.00-0.03 N LYMPHOCYTE # (test code = LY#) 0.38 x10 3/uL 1.0-3.8 L MONOCYTE # (test code = MO#) 0.50 x10 3/uL 0.1-0.8 N EOSINOPHIL # (test code = EO#) 0.13 x10 3/uL 0.0-0.2 N BASOPHIL # (test code = BA#) 0.02 x10 3/uL 0.0-0.2 N NUCLEATED RBC # (test code = NRBC#) 0.00 x10 3/uL 0.0-0.1 N MANUAL DIFF REQUIRED (test c ode = MDIFF) NO GLUCOSE [id number] 06:21:00* Test Item Value Reference Range Interpretation Comme nts GLUCOSE BEDSIDE (test code = GLUBED) 119 MG/DL 70-110 H Performed by cer arlene fondant machine operator at [facility] - XR CHEST 2 [id number] 00:00:00 [facility] 1945 Sex: F FAX: Suki Fuchs MD [place]: St: ADM FAX: Dong Christiansen MD [phone] FAX: Jesus Flores [phone] Name: KIAH GILES [facility] : 1945 Age/S: 76/F [address] [place] [address] Unit #: [id number]: G.[address] [place] [address] Phys: Suki Fuchs MD Acct: [id number] Dis Date: Status: ADM IN PHONE #: [phone] Exam Date: 01/17/2022 1445 FAX #: [phone] Reason: FOR WORSENING BREATHING/CONGESTION EXAMS: CPT CODE: [id number] XR CHEST 2 V 13677 PROCEDURE INFORMATION: Exam: XR Chest Exam dateand time: 01/17/2022 2:22 PM Age: 76 years old Clinical indication: Other: For worsening breathing/congestion TECHNIQUE: Imaging protocol: Radiologic exam of the chest. Views: 2 views. PA and Lateral C OMPARISON: CR XR CHEST 1V 01/14/2022 8:43 AM FINDINGS: Tubes, catheters and devices: Stable positionof left cardiac pacemaker. Lungs: Progression of pulmonary [...] Phyllis Ruby M.D. CC: Suki Fuchs MD; Dong Fuchs MD; Jesus LandryTechnologist: Michelle Torres RT(R) Trnscrd Date/Time/By: 01/17/2022 (150) : By: [email or web address] Orig Print D/T: S: 01/17/2022 (5165) PAGE 1 Signed ReportGLUCOSE [id number] 21:08:00* Test Item Value Reference Range Interpretation Comme nts GLUCOSE BEDSIDE (test code = GLUBED) 200 MG/DL 70-110 H Performed by cer tified fondant machine operator at [facility] GLUCOSE [id number] 16:14:00* Test Item Value Reference Range Interpretation Comme nts GLUCOSE BEDSIDE (test code = GLUBED) 127 MG/DL 70-110 H Performed by [facility] tified fondant machine operator at [facility] GLUCOSE [id number] 11:59:00* Test Item Value Reference Range Interpretation Comme nts GLUCOSE BEDSIDE (test code = GLUBED) 117 MG/DL 70-110 H Performed by cer tified fondant machine operator at [facility] B-TYPE NATRIURETIC [id number] 10:47:00* Test Item Value Reference Range Interpretation Comme [facility] B-TYPE NATRIURETIC PEPTIDE ( test code = BNP) 258.0 PG/ML 0-100 H BASIC METABOLIC [id number] 07:58:00* Test Item Value Reference Range Interpretation Comme nts SODIUM (test code = NA) 141 mEq/L 134-147 N POTASSIUM (test code = K) 3.9 mEq/L 3.4-5.0 N CHLORIDE (test code = CL) 101 mEq/L 100-108 N CARBON DIOXIDE (test code = CO2) 35 mEq/l 21-33 H ANION GAP (test code = GAP) 9 0-20 N GLUCOSE (test code = GLU) 58 mg/dL 70-110 L BLOOD UREA NITROGEN (test code = BUN) 16 mg/dL 7-18 N GLOMERULAR FILTRATION RATE (test code = GFR) 60.6 70-80 L Units of measure = ml/min/1.73 m2 CREATININE (test code = CREAT) 0.9 mg/dL 0.6-1.3 N CALCIUM (test code = CA) 9.5 mg/dL 8.0-10.5 N CALCIUM [id number] 07:58:00* Test Item Value Reference Range Interpretation Comme nts CALCIUM IONIZED (test code = TYREE) 1.16 MMOL/L 1.09-1.30 N GLUCOSE [id number] 06:17:00* Test Item Value Reference Range Interpretation Comme nts GLUCOSE BEDSIDE (test code = GLUBED) 98 MG/DL 70-110 N Performed by cer tified fondant machine operator at [facility] GLUCOSE [id number] 21:19:00* Test Item Value Reference Range Interpretation Comme nts GLUCOSE BEDSIDE (test code = GLUBED) 132 MG/DL 70-110 H Performed by cer tified fondant machine operator at [facility] GLUCOSE [id number] 15:45:00* Test Item Value Reference Range Interpretation Comme nts GLUCOSE BEDSIDE (test code = GLUBED) 159 MG/DL 70-110 H Performed by cer tified fondant machine operator at [facility] GLUCOSE [id number] 11:16:00* Test Item Value Reference Range Interpretation Comme nts GLUCOSE BEDSIDE (test code = GLUBED) 154 MG/DL 70-110 H Performed by cer tified fondant machine operator at [facility] GLUCOSE [id number] 06:02:00* Test Item Value Reference Range Interpretation Comme nts GLUCOSE BEDSIDE (test code = GLUBED) 113 MG/DL 70-110 H Performed by cer tified fondant machine operator at [facility] GLUCOSE [id number] 05:18:00* Test Item Value Reference Range Interpretation Comme nts GLUCOSE BEDSIDE (test code = GLUBED) 57 MG/DL 70-110 L Performed by cer tified fondant machine operator at [facility] GLUCOSE [id number] 19:38:00* Test Item Value Reference Range Interpretation Comme nts GLUCOSE BEDSIDE (test code = GLUBED) 186 MG/DL 70-110 H Performed by cer tified fondant machine operator at [facility] GLUCOSE [id number] 16:05:00* Test Item Value Reference Range Interpretation Comme nts GLUCOSE BEDSIDE (test code = GLUBED) 183 MG/DL 70-110 H Performed by cer tified fondant machine operator at [facility] GLUCOSE [id number] 11:25:00* Test Item Value Reference Range Interpretation Comme nts GLUCOSE BEDSIDE (test code = GLUBED) 114 MG/DL 70-110 H Performed by cer tified fondant machine operator at [facility] BASIC METABOLIC [id number] 08:05:00* Test Item Value Reference Range Interpretation Comme nts SODIUM (test code = NA) 141 mEq/L 134-147 N POTASSIUM (test code = K) 3.9 mEq/L 3.4-5.0 N CHLORIDE (test code = CL) 98 mEq/L 100-108 L CARBON DIOXIDE (test code = CO2) 38 mEq/l 21-33 H ANION GAP (test code = GAP) 9 0-20 N GLUCOSE (test code = GLU) 74 mg/dL 70-110 N BLOOD UREA NITROGEN (test code = BUN) 16 mg/dL 7-18 N GLOMERULAR FILTRATION RATE (test code = GFR) 53.6 70-80 L Units of measure = ml/min/1.73 m2 CREATININE (test code = CREAT) 1.0 mg/dL 0.6-1.3 N CALCIUM (test code = CA) 9.2 mg/dL 8.0-10.5 N [id number] 08:05:00* Test Item Value Reference Range Interpretation Comme nts MAGNESIUM (test code = MAG) 1.83 mg/dL 1.80-2.40 N GLUCOSE [id number] 05:00:00* Test Item Value Reference Range Interpretation Comme nts GLUCOSE BEDSIDE (test code = GLUBED) 83 MG/DL 70-110 N Performed by cer arlene fondant machine operator at [facility] - XR CHEST 1 [id number] 00:00:00 [facility] 1945 Sex: F FAX: Dong Christiansen MD [phone] [place]: St: ADM FAX: Jesus Flores [phone] FAX: Isabella Clemens [phone] Name: KIAH GILES [facility] : 1945 Age/S: 76/F [address] [place] [address] BlvdUnit #: [id number] Loc: [address] [address] Phys: Isabella Clemens Acct: [id number] Dis Date: Status: ADM IN PHONE #: [phone] Exam Date: 01/14/2022905 FAX #: [phone] Reason: SOB, CHF EXAMS: CPT CODE: [id number] XR CHEST 1 V 72213 PROCEDURE INFORMATION: Exam: XR Chest Exam date [...] effusion. No pneumothorax. Heart/Mediastinum: The cardiac silhouette isenlarged. 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 Bones/joints: Unremarkable. IMPRESSION: Minimal vascular congestion with subsegmental atelectasis in the right midlung zone and opacity at the left lung base. at 1040 Reported and signed by: Maurice Reddy M.D. CC: Dong Fuchs MD; Jesus Landry; Isabella Clemens Technologist: RT Jeison(Marla) Trnscrd Date/Time/By: 01/14/2022 (1040) : By: Cindy.TDO Orig Print D/T: S: 01/14/2022 (1048) PAGE 1 Signed ReportGLUCOSE [id number] 19:47:00* Test Item Value Reference Range Interpretation Comme nts GLUCOSE BEDSIDE (test code = GLUBED) 193 MG/DL 70-110 H Performed by cer tified fondant machine operator at [facility] GLUCOSE [id number] 16:47:00* Test Item Value Reference Range Interpretation Comme nts GLUCOSE BEDSIDE (test code = GLUBED) 146 MG/DL 70-110 H Performed by cer tified fondant machine operator at [facility] GLUCOSE [id number] 11:18:00* Test Item Value Reference Range Interpretation Comme nts GLUCOSE BEDSIDE (test code = GLUBED) 164 MG/DL 70-110 H Performed by cer tified fondant machine operator at [facility] GLUCOSE [id number] 05:19:00* Test Item Value Reference Range Interpretation Comme nts GLUCOSE BEDSIDE (test code = GLUBED) 143 MG/DL 70-110 H Performed by cer tified fondant machine operator at [facility] GLUCOSE [id number] 20:33:00* Test Item Value Reference Range Interpretation Comme nts GLUCOSE BEDSIDE (test code = GLUBED) 159 MG/DL 70-110 H Performed by cer tified fondant machine operator at [facility] GLUCOSE [id number] 16:47:00* Test Item Value Reference Range Interpretation Comme nts GLUCOSE BEDSIDE (test code = GLUBED) 233 MG/DL 70-110 H Performed by cer tified fondant machine operator at [facility] GLUCOSE [id number] 11:35:00* Test Item Value Reference Range Interpretation Comme nts GLUCOSE BEDSIDE (test code = GLUBED) 164 MG/DL 70-110 H Performed by cer tified fondant machine operator at [facility] CBC W/AUTO [id number] 10:51:00* Test Item Value Reference Range Interpretation Comme nts WHITE BLOOD CELL (test code = WBC) 6.0 x10 3/uL 4.5-11.0 N RED BLOOD CELL (test code = RBC) 2.89 x10 6/uL 3.54-5.02 L HEMOGLOBIN (test code = HGB) 9.8 g/dL 11.0-15.0 L HEMATOCRIT (test code = HCT) 32.7 % 33.0-45.0 L MEAN CELL VOLUME (test code = MCV) 113.1 fL 81.0-99.0 H MEAN CELL HGB (test code = MCH) 33.9 pg 27.0-33.0 H MEAN CELL HGB CONCETRATION (test code = MCHC) 30.0 g/dL 33.0-37.0 L RED CELL DISTRIBUTION WIDTH CV (test code = RDW) 18.9 % 11.5-14.5 H RED CELL DISTRIBUTION WIDTH SD (test code = RDW-SD) 80.2 fL 37.0-54.0 H PLATELET COUNT (test code = PLT) 155 x10 3/uL 150-400 N MEAN PLATELET VOLUME (test c ode = MPV) 11.6 fL 7.0-9.0 H NEUTROPHIL % (test code = NT%) 82.8 % 56.0-77.0 H IMMATURE GRANULOCYTE % (test code = IG%) 0.2 % 0.0-2.0 N LYMPHOCYTE % (test code = LY%) 5.5 % 14.0-32.0 L MONOCYTE % (test code = MO%) 8.5 % 4.8-9.0 N EOSINOPHIL % (test code = EO%) 2.5 % 0.3-3.7 N BASOPHIL % (test code = BA%) 0.5 % 0.0-2.0 N NUCLEATED RBC % (test code = NRBC%) 0.0 % 0-0 N NEUTROPHIL # (test code = NT#) 4.99 x10 3/uL 2.0-7.6 N IMMATURE GRANULOCYTE # (test code = IG#) 0.01 x10 3/uL 0.00-0.03 N LYMPHOCYTE # (test code = LY#) 0.33 x10 3/uL 1.0-3.8 L MONOCYTE # (test code = MO#) 0.51 x10 3/uL 0.1-0.8 N EOSINOPHIL # (test code = EO#) 0.15 x10 3/uL 0.0-0.2 N BASOPHIL # (test code = BA#) 0.03 x10 3/uL 0.0-0.2 N NUCLEATED RBC # (test code = NRBC#) 0.00 x10 3/uL 0.0-0.1 N MANUAL DIFF REQUIRED (test c ode = MDIFF) NO RBC [id number] 10:51:00* Test Item Value Reference Range Interpretation Comme nts ANISOCYTOSIS (test code = ANISO) 2+ POIKILOCYTOSIS (test code = POIK) 1+ MACROCYTOSIS (test code = MACR) 1+ SCHISTOCYTES (test code = FRANKIE) 1+ B-TYPE NATRIURETIC [id number] 09:36:00* Test Item Value Reference Range Interpretation Comme nts B-TYPE NATRIURETIC PEPTIDE ( test code = BNP) 180.0 PG/ML 0-100 H BASIC METABOLIC [id number] 07:41:00* Test Item Value Reference Range Interpretation Comme nts SODIUM (test code = NA) 139 mEq/L 134-147 N POTASSIUM (test code = K) 3.5 mEq/L 3.4-5.0 N CHLORIDE (test code = CL) 96 mEq/L 100-108 L CARBON DIOXIDE (test code = CO2) 35 mEq/l 21-33 H ANION GAP (test code = GAP) 11 0-20 N GLUCOSE (test code = GLU) 73 mg/dL 70-110 BLOOD UREA NITROGEN (test code = BUN) 13 mg/dL 7-18 GLOMERULAR FILTRATION RATE (test code = GFR) 53.6 70-80 L Units of measure = ml/min/1.73 m2 CREATININE (test code = CREAT) 1.0 mg/dL 0.6-1.3 N CALCIUM (test code = CA) 9.0 mg/dL 8.0-10.5 N [id number] 07:41:00* Test Item Value Reference Range Interpretation Comme nts ALBUMIN (test code = ALB) 3.60 g/dL 3.4-5.0 N [id number] 07:41:00* Test Item Value Reference Range Interpretation Comme nts MAGNESIUM (test code = MAG) 1.77 mg/dL 1.80-2.40 L [id number] 07:41:00* Test Item Value Reference Range Interpretation Comme nts PREALBUMIN (test code = PREALB) 13.8 mg/dL 16.0-40.0 L GLUCOSE [id number] 06:00:00* Test Item Value Reference Range Interpretation Comme nts GLUCOSE BEDSIDE (test code = GLUBED) 95 MG/DL 70-110 N Performed by cer tified fondant machine operator at [facility] GLUCOSE [id number] 06:00:00* Test Item Value Reference Range Interpretation Comme nts GLUCOSE BEDSIDE (test code = GLUBED) 100 MG/DL 70-110 N Performed by cer tified fondant machine operator at [facility] GLUCOSE [id number] 19:49:00* Test Item Value Reference Range Interpretation Comme nts GLUCOSE BEDSIDE (test code = GLUBED) 267 MG/DL 70-110 H Performed by cer tified fondant machine operator at [facility] GLUCOSE [id number] 17:10:00* Test Item Value Reference Range Interpretation Comme nts GLUCOSE BEDSIDE (test code = GLUBED) 286 MG/DL 70-110 H Performed by cer tified fondant machine operator at [facility] GLUCOSE [id number] 11:42:00* Test Item Value Reference Range Interpretation Comme nts GLUCOSE BEDSIDE (test code = GLUBED) 140 MG/DL 70-110 H Performed by cer tified fondant machine operator at [facility] FLUID [id number] 11:03:00* Test Item Value Reference Range Interpretation Comme nts FLUID CO2 (test code = CO2BF) 37 21-33 H [id number] 11:03:00* Test Item Value Reference Range Interpretation Comme nts FLUID CO2 (test code = CO2BF) 37 21-33 H [id number] METABOLIC [id number] 07:03:00* Test Item Value Reference Range Interpretation Comme nts SODIUM (test code = NA) 142 mEq/L 134-147 N POTASSIUM (test code = K) 3.3 mEq/L 3.4-5.0 L CHLORIDE (test code = CL) 95 mEq/L 100-108 L CARBON DIOXIDE (test code = CO2) > 40 mEq/l 21-33 H ANION GAP (test code = GAP) 10 0-20 N GLUCOSE (test code = GLU) 55 mg/dL 70-110 L BLOOD UREA NITROGEN (test code = BUN) 24 mg/dL 7-18 H GLOMERULAR FILTRATION RATE (test code = GFR) 53.6 70-80 L Units of measure = ml/min/1.73 m2 CREATININE (test code = CREAT) 1.0 mg/dL 0.6-1.3 N CALCIUM (test code = CA) 9.1 mg/dL 8.0-10.5 N [id number] 07:03:00* Test Item Value Reference Range Interpretation Comme nts MAGNESIUM (test code = MAG) 1.80 mg/dL 1.80-2.40 N GLUCOSE [id number] 06:35:00* Test Item Value Reference Range Interpretation Comme nts GLUCOSE BEDSIDE (test code = GLUBED) 71 MG/DL 70-110 N Performed by cer tified fondant machine operator at [facility] GLUCOSE [id number] 05:43:00* Test Item Value Reference Range Interpretation Comme nts GLUCOSE BEDSIDE (test code = GLUBED) 60 MG/DL 70-110 L Performed by cer tified fondant machine operator at [facility] GLUCOSE [id number] 20:43:00* Test Item Value Reference Range Interpretation Comme nts GLUCOSE BEDSIDE (test code = GLUBED) 194 MG/DL 70-110 H Performed by cer tified fondant machine operator at [facility] GLUCOSE [id number] 16:59:00* Test Item Value Reference Range Interpretation Comme nts GLUCOSE BEDSIDE (test code = GLUBED) 179 MG/DL 70-110 H Performed by cer tified fondant machine operator at [facility] FLUID [id number] 16:10:00* Test Item Value Reference Range Interpretation Comme nts FLUID CO2 (test code = CO2BF) 39 21-33 H FLUID [id number] 16:10:00* Test Item Value Reference Range Interpretation Comme nts FLUID CO2 (test code = CO2BF) 39 21-33 H GLUCOSE [id number] 12:10:00* Test Item Value Reference Range Interpretation Comme nts GLUCOSE BEDSIDE (test code = GLUBED) 137 MG/DL 70-110 H Performed by cer tified fondant machine operator at [facility] BASIC METABOLIC [id number] 08:04:00* Test Item Value Reference Range Interpretation Comme nts SODIUM (test code = NA) 142 mEq/L 134-147 N POTASSIUM (test code = K) 3.0 mEq/L 3.4-5.0 L CHLORIDE (test code = CL) 96 mEq/L 100-108 L CARBON DIOXIDE (test code = CO2) > 40 mEq/l 21-33 H ANION GAP (test code = GAP) 9 0-20 N GLUCOSE (test code = GLU) 65 mg/dL 70-110 L BLOOD UREA NITROGEN (test code = BUN) 24 mg/dL 7-18 H GLOMERULAR FILTRATION RATE (test code = GFR) 48.0 70-80 L Units of measure = ml/min/1.73 m2 CREATININE (test code = CREAT) 1.1 mg/dL 0.6-1.3 N CALCIUM (test code = CA) 9.0 mg/dL 8.0-10.5 N CALCIUM [id number] 08:04:00* Test Item Value Reference Range Interpretation Comme nts CALCIUM IONIZED (test code = TYREE) 1.15 MMOL/L 1.09-1.30 N GLUCOSE [id number] 05:42:00* Test Item Value Reference Range Interpretation Comme nts GLUCOSE BEDSIDE (test code = GLUBED) 92 MG/DL 70-110 N Performed by cer tified fondant machine operator at [facility] GLUCOSE [id number] 19:49:00* Test Item Value Reference Range Interpretation Comme nts GLUCOSE BEDSIDE (test code = GLUBED) 204 MG/DL 70-110 H Performed by cer tified fondant machine operator at [facility] GLUCOSE [id number] 15:58:00* Test Item Value Reference Range Interpretation Comme nts GLUCOSE BEDSIDE (test code = GLUBED) 122 MG/DL 70-110 H Performed by cer tified fondant machine operator at [facility] GLUCOSE [id number] 11:08:00* Test Item Value Reference Range Interpretation Comme nts GLUCOSE BEDSIDE (test code = GLUBED) 172 MG/DL 70-110 H Performed by cer tified fondant machine operator at [facility] [id number] 07:38:00* Test Item Value Reference Range Interpretation Comme nts POTASSIUM (test code = K) 3.0 mEq/L 3.4-5.0 L B-TYPE NATRIURETIC [id number] 07:27:00* Test Item Value Reference Range Interpretation Comme nts B-TYPE NATRIURETIC PEPTIDE ( test code = BNP) 232.0 PG/ML 0-100 H GLUCOSE [id number] 06:10:00* Test Item Value Reference Range Interpretation Comme nts GLUCOSE BEDSIDE (test code = GLUBED) 94 MG/DL 70-110 N Performed by cer [employer] fondant machine operator at [facility] - XR CHEST 1 [id number] 00:00:00 [facility] 1945 Sex: F FAX: Dong Christiansen MD [phone] [place]: St: [facility] FAX: Jesus Flores [phone] Name: KIAH GILES [facility] : 1945 Age/S: 76/F [address] [place] [address] Unit #: [id number] Loc: G.[address] [place] [address] Phys: Jesus Landry MD Acct: [id number] Dis Date: Status: ADM IN PHONE #: [phone] Exam Date: 01/09/2022 0949 FAX #: [phone] Reason: SHORTNESS OF BREATH EXAMS: CPT CODE: [id number] XR CHEST 1 V 40941 PROCEDURE INFORMATION: Exam: XR Chest Exam date and time: 01/09/2022 9:40AM Age: 76 years old Clinical indication: Shortness [...] edema. Inflammation in the differential. 2. Residual subsegmen kirk atelectasis. 3. Residual small volume pleural effusions. at 1048 Reported and signed by: Jasmeet Carlisle M.D. CC: Dong Sosa MD; Jesus Landry Technologist: MAXIMILIANO Valdez) Trnscrd Date/Time/By: 01/09/2022 (1046) : By: FaisalL Orig Print D/T: S: 01/09/2022 (8298) PAGE 1 Signed ReportGLUCOSE [id number] 20:39:00* Test Item Value Reference Range Interpretation Comme [facility] GLUCOSE BEDSIDE (test code = GLUBED) 167 MG/DL 70-110 H Performed by cer tified fondant machine operator at [facility] GLUCOSE [id number] 16:08:00* Test Item Value Reference Range Interpretation Comme [facility] GLUCOSE BEDSIDE (test code = GLUBED) 153 MG/DL 70-110 H Performed by [facility] tified fondant machine operator at [facility] GLUCOSE [id number] 11:08:00* Test Item Value Reference Range Interpretation Comme [facility] GLUCOSE BEDSIDE (test code = GLUBED) 195 MG/DL 70-110 H Performed by [facility] tified fondant machine operator at [facility] BASIC METABOLIC [id number] 08:05:00* Test Item Value Reference Range Interpretation Comme nts SODIUM (test code = NA) 142 mEq/L 134-147 N POTASSIUM (test code = K) 3.0 mEq/L 3.4-5.0 L CHLORIDE (test code = CL) 98 mEq/L 100-108 L CARBON DIOXIDE (test code = CO2) 36 mEq/l 21-33 H ANION GAP (test code = GAP) 11 0-20 N GLUCOSE (test code = GLU) 106 mg/dL 70-110 N BLOOD UREA NITROGEN (test code = BUN) 23 mg/dL 7-18 H GLOMERULAR FILTRATION RATE (test code = GFR) 48.0 70-80 L Units of measure = ml/min/1.73 m2 CREATININE (test code = CREAT) 1.1 mg/dL 0.6-1.3 N CALCIUM (test code = CA) 9.4 mg/dL 8.0-10.5 N RENAL FUNCTION [id number] 08:05:00* Test Item Value Reference Range Interpretation Comme nts ALBUMIN (test code = ALB) 3.50 g/dL 3.4-5.0 N PHOSPHOROUS (test code = PHOS) 2.7 MG/DL 2.5-4.9 N [id number] 08:05:00* Test Item Value Reference Range Interpretation Comme nts MAGNESIUM (test code = MAG) 1.83 mg/dL 1.80-2.40 N CBC W/AUTO [id number] 08:04:00* Test Item Value Reference Range Interpretation Comme nts WHITE BLOOD CELL (test code = WBC) 5.6 x10 3/uL 4.5-11.0 N RED BLOOD CELL (test code = RBC) 2.55 x10 6/uL 3.54-5.02 L HEMOGLOBIN (test code = HGB) 8.7 g/dL 11.0-15.0 L HEMATOCRIT (test code = HCT) 28.4 % 33.0-45.0 L MEAN CELL VOLUME (test code = MCV) 111.4 fL 81.0-99.0 H MEAN CELL HGB (test code = MCH) 34.1 pg 27.0-33.0 H MEAN CELL HGB CONCETRATION (test code = MCHC) 30.6 g/dL 33.0-37.0 L RED CELL DISTRIBUTION WIDTH CV (test code = RDW) 19.1 % 11.5-14.5 H RED CELL DISTRIBUTION WIDTH SD (test code = RDW-SD) 77.8 fL 37.0-54.0 H PLATELET COUNT (test code = PLT) 221 x10 3/uL 150-400 N MEAN PLATELET VOLUME (test c ode = MPV) 11.0 fL 7.0-9.0 H NEUTROPHIL % (test code = NT%) 76.3 % 56.0-77.0 N IMMATURE GRANULOCYTE % (test code = IG%) 0.9 % 0.0-2.0 N LYMPHOCYTE % (test code = LY%) 8.3 % 14.0-32.0 L MONOCYTE % (test code = MO%) 11.5 % 4.8-9.0 H EOSINOPHIL % (test code = EO%) 2.3 % 0.3-3.7 N BASOPHIL % (test code = BA%) 0.7 % 0.0-2.0 N NUCLEATED RBC % (test code = NRBC%) 0.0 % 0-0 N NEUTROPHIL # (test code = NT#) 4.24 x10 3/uL 2.0-7.6 N IMMATURE GRANULOCYTE # (test code = IG#) 0.05 x10 3/uL 0.00-0.03 H LYMPHOCYTE # (test code = LY#) 0.46 x10 3/uL 1.0-3.8 L MONOCYTE # (test code = MO#) 0.64 x10 3/uL 0.1-0.8 N EOSINOPHIL # (test code = EO#) 0.13 x10 3/uL 0.0-0.2 N BASOPHIL # (test code = BA#) 0.04 x10 3/uL 0.0-0.2 N NUCLEATED RBC # (test code = NRBC#) 0.00 x10 3/uL 0.0-0.1 N MANUAL DIFF REQUIRED (test c ode = MDIFF) NO [id number] 07:14:00* Test Item Value Reference Range Interpretation Comme nts HGBA1C% (test code = HGBA1C%) 5.8 %A1C 4.8-6.0 N GLUCOSE [id number] 05:36:00* Test Item Value Reference Range Interpretation Comme nts GLUCOSE BEDSIDE (test code = GLUBED) 117 MG/DL 70-110 H Performed by cer tified fondant machine operator at [facility] GLUCOSE [id number] 05:36:00* Test Item Value Reference Range Interpretation Comme nts GLUCOSE BEDSIDE (test code = GLUBED) 168 MG/DL 70-110 H Performed by cer tified fondant machine operator at [facility] GLUCOSE [id number] 18:16:00* Test Item Value Reference Range Interpretation Comme nts GLUCOSE BEDSIDE (test code = GLUBED) 194 MG/DL 70-110 H Performed by cer tified fondant machine operator at [facility] GLUCOSE [id number] 12:29:00* Test Item Value Reference Range Interpretation Comme nts GLUCOSE BEDSIDE (test code = GLUBED) 176 MG/DL 70-110 H Performed by cer tified fondant machine operator at [facility] COVID 19 Asymptomatic IH [id number] 10:20:00* Test Item Value Reference Range Interpretation Comme nts COVID 19 Asymptomatic IH AG (test code = COVNONPUIAG) Negative Negative A negative resul t is presumptive and should be confirmedwith an FDA authorized molecular assay, if necessary forpatient management.A positive result does not rule out co-infections withother pathogens.This test detects both viable (live) and non-viable,SARS-CoV, and SARS-CoV-2. Test performance depends on theamount of virus (antigen) in the sample.This test has not been FDA cleared or approved; the test hasbeen authorized by FDA under an Emergency Use Authorization(EUA) for use by laboratories certified under the CLIA thatmeet the requirements to perform moderate, high or waivedcomplexity tests. GLUCOSE [id number] 08:37:00* Test Item Value Reference Range Interpretation Comme nts GLUCOSE BEDSIDE (test code = GLUBED) 84 MG/DL 70-110 N Performed by cer tified fondant machine operator at [facility] BASIC METABOLIC [id number] 07:38:00* Test Item Value Reference Range Interpretation Comme nts SODIUM (test code = NA) 141 mEq/L 134-147 N POTASSIUM (test code = K) 3.5 mEq/L 3.4-5.0 N CHLORIDE (test code = CL) 100 mEq/L 100-108 N CARBON DIOXIDE (test code = CO2) 34 mEq/l 21-33 H ANION GAP (test code = GAP) 11 0-20 N GLUCOSE (test code = GLU) 90 mg/dL 70-110 N BLOOD UREA NITROGEN (test code = BUN) 23 mg/dL 7-18 H GLOMERULAR FILTRATION RATE (test code = GFR) 60.6 70-80 L Units of measure = ml/min/1.73 m2 CREATININE (test code = CREAT) 0.9 mg/dL 0.6-1.3 N CALCIUM (test code = CA) 9.1 mg/dL 8.0-10.5 N GLUCOSE [id number] 21:33:00* Test Item Value Reference Range Interpretation Comme nts GLUCOSE BEDSIDE (test code = GLUBED) 119 MG/DL 70-110 H Performed by cer tified fondant machine operator at [facility] GLUCOSE [id number] 18:12:00* Test Item Value Reference Range Interpretation Comme nts GLUCOSE BEDSIDE (test code = GLUBED) 170 MG/DL 70-110 H Performed by cer tified fondant machine operator at [facility] GLUCOSE [id number] 12:51:00* Test Item Value Reference Range Interpretation Comme nts GLUCOSE BEDSIDE (test code = GLUBED) 200 MG/DL 70-110 H Performed by cer tified fondant machine operator at [facility] GLUCOSE [id number] 08:19:00* Test Item Value Reference Range Interpretation Comme nts GLUCOSE BEDSIDE (test code = GLUBED) 105 MG/DL 70-110 N Performed by cer tified fondant machine operator at [facility] BASIC METABOLIC [id number] 04:05:00* Test Item Value Reference Range Interpretation Comme nts SODIUM (test code = NA) 143 mEq/L 134-147 N POTASSIUM (test code = K) 3.2 mEq/L 3.4-5.0 L CHLORIDE (test code = CL) 101 mEq/L 100-108 N CARBON DIOXIDE (test code = CO2) 36 mEq/l 21-33 H ANION GAP (test code = GAP) 9 0-20 N GLUCOSE (test code = GLU) 115 mg/dL 70-110 H BLOOD UREA NITROGEN (test code = BUN) 29 mg/dL 7-18 H GLOMERULAR FILTRATION RATE (test code = GFR) 48.0 70-80 L Units of measure = ml/min/1.73 m2 CREATININE (test code = CREAT) 1.1 mg/dL 0.6-1.3 N CALCIUM (test code = CA) 9.4 mg/dL 8.0-10.5 N [id number] 04:05:00* Test Item Value Reference Range Interpretation Comme nts MAGNESIUM (test code = MAG) 1.86 mg/dL 1.80-2.40 N CBC W/AUTO [id number] 03:38:00* Test Item Value Reference Range Interpretation Comme nts WHITE BLOOD CELL (test code = WBC) 5.7 x10 3/uL 4.5-11.0 N RED BLOOD CELL (test code = RBC) 2.29 x10 6/uL 3.54-5.02 L HEMOGLOBIN (test code = HGB) 8.1 g/dL 11.0-15.0 L HEMATOCRIT (test code = HCT) 25.6 % 33.0-45.0 L MEAN CELL VOLUME (test code = MCV) 111.8 fL 81.0-99.0 H MEAN CELL HGB (test code = MCH) 35.4 pg 27.0-33.0 H MEAN CELL HGB CONCETRATION (test code = MCHC) 31.6 g/dL 33.0-37.0 L RED CELL DISTRIBUTION WIDTH CV (test code = RDW) 18.7 % 11.5-14.5 H RED CELL DISTRIBUTION WIDTH SD (test code = RDW-SD) 72.3 fL 37.0-54.0 H PLATELET COUNT (test code = PLT) 244 x10 3/uL 150-400 N MEAN PLATELET VOLUME (test c ode = MPV) 10.8 fL 7.0-9.0 H NEUTROPHIL % (test code = NT%) 77.4 % 56.0-77.0 H IMMATURE GRANULOCYTE % (test code = IG%) 1.2 % 0.0-2.0 N LYMPHOCYTE % (test code = LY%) 7.8 % 14.0-32.0 L MONOCYTE % (test code = MO%) 11.7 % 4.8-9.0 H EOSINOPHIL % (test code = EO%) 1.6 % 0.3-3.7 N BASOPHIL % (test code = BA%) 0.3 % 0.0-2.0 N NUCLEATED RBC % (test code = NRBC%) 0.5 % 0-0 H NEUTROPHIL # (test code = NT#) 4.44 x10 3/uL 2.0-7.6 N IMMATURE GRANULOCYTE # (test code = IG#) 0.07 x10 3/uL 0.00-0.03 H LYMPHOCYTE # (test code = LY#) 0.45 x10 3/uL 1.0-3.8 L MONOCYTE # (test code = MO#) 0.67 x10 3/uL 0.1-0.8 N EOSINOPHIL # (test code = EO#) 0.09 x10 3/uL 0.0-0.2 N BASOPHIL # (test code = BA#) 0.02 x10 3/uL 0.0-0.2 N NUCLEATED RBC # (test code = NRBC#) 0.03 x10 3/uL 0.0-0.1 N MANUAL DIFF REQUIRED (test c ode = MDIFF) NO - DUP VEIN [id number] 00:00:00 [facility] 1945 Sex: F Name: KIAH GILES [facility] : 1945 Age/S: 76 / F [address] [place] [address] Unit #: [id number] Loc: [place] [address] Phys: Kena Macedo [employer] ARTIST Acct: [id number] Dis Date: Status: ADM IN PHONE #: [phone] Exam Date: 01/06/2022 06 FAX #: [phone] Reason: R/O DVT EXAMS: CPT CODE: [id number] [facility] VEIN RAJAN [id number] PROCEDURE INFORMATION: Exam: US Duplex Lower Extremity [...] veins are patent without thrombus. Normal Doppler waveforms.Normal compressibility and/or augmentation response. Right superficial veins: Saphenofemoral junction is patent without thrombus. Left deep veins: Unremarkable. The common femoral, femoral, proximal profunda femoral and popliteal veins are patent without thrombus. Normal Doppler waveforms. Normal co mpressibility and/or augmentation response. Left superficial veins: Saphenofemoral junction is patent without thrombus. Soft tissues: Unremarkable. IMPRESSION: No evidence of deep vein thrombosis. at 0627 Reported and signed by: Boo Clay M.D. CC: Jeffry More MD; Dong Fuchs MD; Kena Macedo NP; Justo NEAL Technologist: Silke Vee RDMS(AB)(OB) Trnscb Date/Time: 01/06/2022 (626) [email or web address] Print D/T: S: 01/06/2022 (626) Probe: PAGE 1 Signed ReportGLUCOSE [id number] 20:46:00* Test Item Value Reference Range Interpretation Comme nts GLUCOSE BEDSIDE (test code = GLUBED) 162 MG/DL 70-110 H Performed by [employer] fond[employer] machine operator at [facility] GLUCOSE [id number] 17:16:00* Test Item Value Reference Range Interpretation Comme nts GLUCOSE BEDSIDE (test code = GLUBED) 140 MG/DL 70-110 H Performed by 10X10 Room [employer] machine operator at [facility] GLUCOSE [id number] 12:54:00* Test Item Value Reference Range Interpretation Comme nts GLUCOSE BEDSIDE (test code = GLUBED) 215 MG/DL 70-110 H Performed by BRAND-YOURSELF fondant machine operator at [facility] GLUCOSE [id number] 10:11:00* Test Item Value Reference Range Interpretation Comme nts GLUCOSE BEDSIDE (test code = GLUBED) 104 MG/DL 70-110 N Performed by [facility] XRONet fondant machine operator at [facility] CBC W/AUTO [id number] 04:30:00* Test Item Value Reference Range Interpretation Comme nts WHITE BLOOD CELL (test code = WBC) 7.0 x10 3/uL 4.5-11.0 N RED BLOOD CELL (test code = RBC) 2.41 x10 6/uL 3.54-5.02 L HEMOGLOBIN (test code = HGB) 8.3 g/dL 11.0-15.0 L HEMATOCRIT (test code = HCT) 26.4 % 33.0-45.0 L MEAN CELL VOLUME (test code = MCV) 109.5 fL 81.0-99.0 H MEAN CELL HGB (test code = MCH) 34.4 pg 27.0-33.0 H MEAN CELL HGB CONCETRATION (test code = MCHC) 31.4 g/dL 33.0-37.0 L RED CELL DISTRIBUTION WIDTH CV (test code = RDW) 19.3 % 11.5-14.5 H RED CELL DISTRIBUTION WIDTH SD (test code = RDW-SD) 73.8 fL 37.0-54.0 H PLATELET COUNT (test code = PLT) 230 x10 3/uL 150-400 N MEAN PLATELET VOLUME (test c ode = MPV) 11.2 fL 7.0-9.0 H NEUTROPHIL % (test code = NT%) 79.9 % 56.0-77.0 H IMMATURE GRANULOCYTE % (test code = IG%) 1.4 % 0.0-2.0 N LYMPHOCYTE % (test code = LY%) 6.3 % 14.0-32.0 L MONOCYTE % (test code = MO%) 10.4 % 4.8-9.0 H EOSINOPHIL % (test code = EO%) 1.6 % 0.3-3.7 N BASOPHIL % (test code = BA%) 0.4 % 0.0-2.0 N NUCLEATED RBC % (test code = NRBC%) 0.7 % 0-0 H NEUTROPHIL # (test code = NT#) 5.62 x10 3/uL 2.0-7.6 N IMMATURE GRANULOCYTE # (test code = IG#) 0.10 x10 3/uL 0.00-0.03 H LYMPHOCYTE # (test code = LY#) 0.44 x10 3/uL 1.0-3.8 L MONOCYTE # (test code = MO#) 0.73 x10 3/uL 0.1-0.8 N EOSINOPHIL # (test code = EO#) 0.11 x10 3/uL 0.0-0.2 N BASOPHIL # (test code = BA#) 0.03 x10 3/uL 0.0-0.2 N NUCLEATED RBC # (test code = NRBC#) 0.05 x10 3/uL 0.0-0.1 N MANUAL DIFF REQUIRED (test c ode = MDIFF) NO BASIC METABOLIC [id number] 03:15:00* Test Item Value Reference Range Interpretation Comme nts SODIUM (test code = NA) 145 mEq/L 134-147 N POTASSIUM (test code = K) 3.3 mEq/L 3.4-5.0 L CHLORIDE (test code = CL) 102 mEq/L 100-108 N CARBON DIOXIDE (test code = CO2) 36 mEq/l 21-33 H ANION GAP (test code = GAP) 10 0-20 N GLUCOSE (test code = GLU) 94 mg/dL 70-110 N BLOOD UREA NITROGEN (test code = BUN) 26 mg/dL 7-18 H GLOMERULAR FILTRATION RATE (test code = GFR) 53.6 70-80 L Units of measure = ml/min/1.73 m2 CREATININE (test code = CREAT) 1.0 mg/dL 0.6-1.3 N CALCIUM (test code = CA) 9.4 mg/dL 8.0-10.5 N [id number] 03:15:00* Test Item Value Reference Range Interpretation Comme nts MAGNESIUM (test code = MAG) 1.91 mg/dL 1.80-2.40 N GLUCOSE [id number] 23:31:00* Test Item Value Reference Range Interpretation Comme nts GLUCOSE BEDSIDE (test code = GLUBED) 108 MG/DL 70-110 N Performed by cer tified fondant machine operator at [facility] GLUCOSE [id number] 23:31:00* Test Item Value Reference Range Interpretation Comme nts GLUCOSE BEDSIDE (test code = GLUBED) 259 MG/DL 70-110 H Performed by cer tified fondant machine operator at [facility] GLUCOSE [id number] 10:26:00* Test Item Value Reference Range Interpretation Comme nts GLUCOSE BEDSIDE (test code = GLUBED) 141 MG/DL 70-110 H Performed by cer tified fondant machine operator at [facility] GLUCOSE [id number] 07:59:00* Test Item Value Reference Range Interpretation Comme nts GLUCOSE BEDSIDE (test code = GLUBED) 87 MG/DL 70-110 N Performed by cer arlene fondant machine operator at [facility] BASIC METABOLIC [id number] 04:06:00* Test Item Value Reference Range Interpretation Comme nts SODIUM (test code = NA) 144 mEq/L 134-147 N POTASSIUM (test code = K) 3.5 mEq/L 3.4-5.0 N CHLORIDE (test code = CL) 102 mEq/L 100-108 N CARBON DIOXIDE (test code = CO2) 36 mEq/l 21-33 H ANION GAP (test code = GAP) 10 0-20 N GLUCOSE (test code = GLU) 103 mg/dL 70-110 N BLOOD UREA NITROGEN (test code = BUN) 26 mg/dL 7-18 H GLOMERULAR FILTRATION RATE (test code = GFR) 60.6 70-80 L Units of measure = ml/min/1.73 m2 CREATININE (test code = CREAT) 0.9 mg/dL 0.6-1.3 N CALCIUM (test code = CA) 9.8 mg/dL 8.0-10.5 N [id number] 04:06:00* Test Item Value Reference Range Interpretation Comme nts MAGNESIUM (test code = MAG) 2.02 mg/dL 1.80-2.40 N CBC W/AUTO [id number] 03:56:00* Test Item Value Reference Range Interpretation Comme nts WHITE BLOOD CELL (test code = WBC) 7.3 x10 3/uL 4.5-11.0 N RED BLOOD CELL (test code = RBC) 2.11 x10 6/uL 3.54-5.02 L HEMOGLOBIN (test code = HGB) 8.1 g/dL 11.0-15.0 L HEMATOCRIT (test code = HCT) 24.0 % 33.0-45.0 L MEAN CELL VOLUME (test code = MCV) 113.7 fL 81.0-99.0 H MEAN CELL HGB (test code = MCH) 38.4 pg 27.0-33.0 H MEAN CELL HGB CONCETRATION (test code = MCHC) 33.8 g/dL 33.0-37.0 N RED CELL DISTRIBUTION WIDTH CV (test code = RDW) 19.1 % 11.5-14.5 H RED CELL DISTRIBUTION WIDTH SD (test code = RDW-SD) 69.7 fL 37.0-54.0 H PLATELET COUNT (test code = PLT) 255 x10 3/uL 150-400 N MEAN PLATELET VOLUME (test c ode = MPV) 10.6 fL 7.0-9.0 H NEUTROPHIL % (test code = NT%) 80.2 % 56.0-77.0 H IMMATURE GRANULOCYTE % (test code = IG%) 1.5 % 0.0-2.0 N LYMPHOCYTE % (test code = LY%) 6.3 % 14.0-32.0 L MONOCYTE % (test code = MO%) 9.7 % 4.8-9.0 H EOSINOPHIL % (test code = EO%) 1.8 % 0.3-3.7 N BASOPHIL % (test code = BA%) 0.5 % 0.0-2.0 N NUCLEATED RBC % (test code = NRBC%) 0.4 % 0-0 H NEUTROPHIL # (test code = NT#) 5.86 x10 3/uL 2.0-7.6 N IMMATURE GRANULOCYTE # (test code = IG#) 0.11 x10 3/uL 0.00-0.03 H LYMPHOCYTE # (test code = LY#) 0.46 x10 3/uL 1.0-3.8 L MONOCYTE # (test code = MO#) 0.71 x10 3/uL 0.1-0.8 N EOSINOPHIL # (test code = EO#) 0.13 x10 3/uL 0.0-0.2 N BASOPHIL # (test code = BA#) 0.04 x10 3/uL 0.0-0.2 N NUCLEATED RBC # (test code = NRBC#) 0.03 x10 3/uL 0.0-0.1 N MANUAL DIFF REQUIRED (test c ode = MDIFF) NO - XR CHEST 1 [id number] 00:00:00 [facility] 1945 Sex: F FAX: Jeffry Pennington MD [phone] [place]: St: ADM FAX: Dong Christiansen MD [phone] FAX: René Blancas [phone] FAX: Colt Aguillon MD [phone] Name: CHANKAIH [facility] : 1945 Age/S: 76/F [address] [place] [address] Unit #: [id number] Loc: G.3363 [place] [address] Phys: René Romero MD Acct: [id number] Dis Date: Status: ADM IN PHONE #: [phone] Exam Date: 01/04/2022711 FAX #: [phone] Reason: R/O PLEURAL EFFUSION EXAMS: CPT CODE: [id number] XR CHEST 1 V 25352 PROCEDURE INFORMATION: Exam: XR Chest Exam date and time: 01/04/2022 6:50 AM Age: 76 years oldClinical indication: Other: R/O pleural effusion TECHNIQUE: Imaging [...] finding. Heart/Mediastinum: Stable enlarged heart size. Vasculature: Atherosclerotic calcifications. Bones/joints: Stable. Median sternotomy wires. IMPRESSION:Mild worsening right basilar opacities. Otherwise, stable exam. at 0812 Reported and signed by: Mark Anthony Willis M.D. CC: Jeffry More MD; Dong Fuchs MD; René Romero MD; Colt Vail MD Technologist: RT Joe(R) Trnscrd Date/Time/By: 01/04/2022 (811) : By: AureliaSW20 Orig Print D/T: S: 01/04/2022 (812) PAGE 1 Signed ReportGLUCOSE [id number] 20:26:00* Test Item Value Reference Range Interpretation Comme nts GLUCOSE BEDSIDE (test code = GLUBED) 117 MG/DL 70-110 H Performed by cer tified fondant machine operator at [facility] GLUCOSE [id number] 16:49:00* Test Item Value Reference Range Interpretation Comme nts GLUCOSE BEDSIDE (test code = GLUBED) 180 MG/DL 70-110 H Performed by cer tified fondant machine operator at [facility] GLUCOSE [id number] 12:43:00* Test Item Value Reference Range Interpretation Comme nts GLUCOSE BEDSIDE (test code = GLUBED) 189 MG/DL 70-110 H Performed by cer tified fondant machine operator at [facility] GLUCOSE [id number] 07:40:00* Test Item Value Reference Range Interpretation Comme nts GLUCOSE BEDSIDE (test code = GLUBED) 96 MG/DL 70-110 N Performed by [facility] tified fondant machine operator at [facility] BASIC METABOLIC [id number] 05:21:00* Test Item Value Reference Range Interpretation Comme nts SODIUM (test code = NA) 144 mEq/L 134-147 N POTASSIUM (test code = K) 3.3 mEq/L 3.4-5.0 L CHLORIDE (test code = CL) 102 mEq/L 100-108 N CARBON DIOXIDE (test code = CO2) 37 mEq/l 21-33 H ANION GAP (test code = GAP) 9 0-20 N GLUCOSE (test code = GLU) 95 mg/dL 70-110 BLOOD UREA NITROGEN (test code = BUN) 25 mg/dL 7-18 H GLOMERULAR FILTRATION RATE (test code = GFR) 53.6 70-80 L Units of measure = ml/min/1.73 m2 CREATININE (test code = CREAT) 1.0 mg/dL 0.6-1.3 N CALCIUM (test code = CA) 9.8 mg/dL 8.0-10.5 N [id number] 05:21:00* Test Item Value Reference Range Interpretation Comme nts MAGNESIUM (test code = MAG) 2.20 mg/dL 1.80-2.40 N CBC W/AUTO [id number] 05:15:00* Test Item Value Reference Range Interpretation Comme nts WHITE BLOOD CELL (test code = WBC) 9.1 x10 3/uL 4.5-11.0 N RED BLOOD CELL (test code = RBC) 2.31 x10 6/uL 3.54-5.02 L HEMOGLOBIN (test code = HGB) 8.3 g/dL 11.0-15.0 L HEMATOCRIT (test code = HCT) 25.9 % 33.0-45.0 L MEAN CELL VOLUME (test code = MCV) 112.1 fL 81.0-99.0 H MEAN CELL HGB (test code = MCH) 35.9 pg 27.0-33.0 H MEAN CELL HGB CONCETRATION (test code = MCHC) 32.0 g/dL 33.0-37.0 L RED CELL DISTRIBUTION WIDTH CV (test code = RDW) 17.7 % 11.5-14.5 H RED CELL DISTRIBUTION WIDTH SD (test code = RDW-SD) 70.2 fL 37.0-54.0 H PLATELET COUNT (test code = PLT) 260 x10 3/uL 150-400 N MEAN PLATELET VOLUME (test c ode = MPV) 10.5 fL 7.0-9.0 H NEUTROPHIL % (test code = NT%) 81.4 % 56.0-77.0 H IMMATURE GRANULOCYTE % (test code = IG%) 1.4 % 0.0-2.0 N LYMPHOCYTE % (test code = LY%) 5.6 % 14.0-32.0 L MONOCYTE % (test code = MO%) 9.3 % 4.8-9.0 H EOSINOPHIL % (test code = EO%) 2.0 % 0.3-3.7 N BASOPHIL % (test code = BA%) 0.3 % 0.0-2.0 N NUCLEATED RBC % (test code = NRBC%) 0.8 % 0-0 H NEUTROPHIL # (test code = NT#) 7.41 x10 3/uL 2.0-7.6 N IMMATURE GRANULOCYTE # (test code = IG#) 0.13 x10 3/uL 0.00-0.03 H LYMPHOCYTE # (test code = LY#) 0.51 x10 3/uL 1.0-3.8 L MONOCYTE # (test code = MO#) 0.85 x10 3/uL 0.1-0.8 H EOSINOPHIL # (test code = EO#) 0.18 x10 3/uL 0.0-0.2 N BASOPHIL # (test code = BA#) 0.03 x10 3/uL 0.0-0.2 N NUCLEATED RBC # (test code = NRBC#) 0.07 x10 3/uL 0.0-0.1 N MANUAL DIFF REQUIRED (test c ode = MDIFF) NO - XR CHEST 1 [id number] 00:00:00 [facility] : 1945 Sex: F FAX: Jeffry Pennington MD [phone] [place]: St: ADM FAX: Dong Christiansen MD [phone] FAX: René Blancas [phone] FAX: Colt Aguillon MD [phone] Name: KIAH GILES [facility] Emiliano Hart : 1945 Age/S: 76/F [address] [place] [address] Unit #: [id number] Loc: [place] [address] Phys: René Romero MD Acct: [id number] Dis Date: Status: ADM IN PHONE #: [phone] Exam Date: 01/03/2022 0645 FAX #: [phone] Reason: R/O PLEURAL EFFUSION EXAMS: CPT CODE: [id number] XR CHEST 1V 18388 PROCEDURE INFORMATION: Exam: XR Chest Exam date and time: 01/03/2022 6:43 AM Age: 76 yearsold Clinical indication: Pain; Chest pressure; Additional info: [...] small bilateral pleural effusions. Heart/Mediastinum: Prosthetic cardiac valvein place. Bones/joints: Median sternotomy changes. IMPRESSION: 1. Unchanged multifocal patchy bilateral airspace disease in the left lung base and right mid and lower lung. 2. Unchanged small bilateral pleural effusions. at 0839 Reportedand signed by: Nicholas Dominguez M.D. CC: Jeffry More MD; Dong Fuchs MD; René Romero MD; Colt Vail MD Technologist: Xenia Bashir, RT(R); Shell Min RT(R) Trnscrd Date/Time/By: 01/03/2022 (0839) : By: AureliaAM01 Orig Print D/T: S: 01/03/2022 (0839) PAGE 1 Signed ReportGLUCOSE BEDSIDE 2022-01-02 20:53:00* Test Item Value Reference Range Interpretation Comme nts GLUCOSE BEDSIDE (test code = GLUBED) 187 MG/DL 70-110 H Performed by cer tified fondant machine operator at [facility] GLUCOSE [id number] 17:13:00* Test Item Value Reference Range Interpretation Comme nts GLUCOSE BEDSIDE (test code = GLUBED) 164 MG/DL 70-110 H Performed by cer tified fondant machine operator at [facility] GLUCOSE [id number] 12:25:00* Test Item Value Reference Range Interpretation Comme nts GLUCOSE BEDSIDE (test code = GLUBED) 190 MG/DL 70-110 H Performed by cer tified fondant machine operator at [facility] GLUCOSE [id number] 09:11:00* Test Item Value Reference Range Interpretation Comme nts GLUCOSE BEDSIDE (test code = GLUBED) 207 MG/DL 70-110 H Performed by cer tified fondant machine operator at [facility] BASIC METABOLIC [id number] 04:53:00* Test Item Value Reference Range Interpretation Comme nts SODIUM (test code = NA) 143 mEq/L 134-147 N POTASSIUM (test code = K) 3.4 mEq/L 3.4-5.0 N CHLORIDE (test code = CL) 100 mEq/L 100-108 N CARBON DIOXIDE (test code = CO2) 37 mEq/l 21-33 H ANION GAP (test code = GAP) 9 0-20 N GLUCOSE (test code = GLU) 146 mg/dL 70-110 H BLOOD UREA NITROGEN (test code = BUN) 29 mg/dL 7-18 H GLOMERULAR FILTRATION RATE (test code = GFR) 53.6 70-80 L Units of measure = ml/min/1.73 m2 CREATININE (test code = CREAT) 1.0 mg/dL 0.6-1.3 N CALCIUM (test code = CA) 9.8 mg/dL 8.0-10.5 N [id number] 04:53:00* Test Item Value Reference Range Interpretation Comme nts MAGNESIUM (test code = MAG) 2.02 mg/dL 1.80-2.40 N CBC W/AUTO [id number] 04:33:00* Test Item Value Reference Range Interpretation Comme nts WHITE BLOOD CELL (test code = WBC) 9.1 x10 3/uL 4.5-11.0 N RED BLOOD CELL (test code = RBC) 2.32 x10 6/uL 3.54-5.02 L HEMOGLOBIN (test code = HGB) 8.1 g/dL 11.0-15.0 L HEMATOCRIT (test code = HCT) 25.6 % 33.0-45.0 L MEAN CELL VOLUME (test code = MCV) 110.3 fL 81.0-99.0 H MEAN CELL HGB (test code = MCH) 34.9 pg 27.0-33.0 H MEAN CELL HGB CONCETRATION (test code = MCHC) 31.6 g/dL 33.0-37.0 L RED CELL DISTRIBUTION WIDTH CV (test code = RDW) 17.3 % 11.5-14.5 H RED CELL DISTRIBUTION WIDTH SD (test code = RDW-SD) 67.2 fL 37.0-54.0 H PLATELET COUNT (test code = PLT) 272 x10 3/uL 150-400 N MEAN PLATELET VOLUME (test c ode = MPV) 11.0 fL 7.0-9.0 H NEUTROPHIL % (test code = NT%) 80.2 % 56.0-77.0 H IMMATURE GRANULOCYTE % (test code = IG%) 3.4 % 0.0-2.0 H LYMPHOCYTE % (test code = LY%) 5.1 % 14.0-32.0 L MONOCYTE % (test code = MO%) 9.4 % 4.8-9.0 H EOSINOPHIL % (test code = EO%) 1.5 % 0.3-3.7 N BASOPHIL % (test code = BA%) 0.4 % 0.0-2.0 N NUCLEATED RBC % (test code = NRBC%) 1.5 % 0-0 H NEUTROPHIL # (test code = NT#) 7.28 x10 3/uL 2.0-7.6 N IMMATURE GRANULOCYTE # (test code = IG#) 0.31 x10 3/uL 0.00-0.03 H LYMPHOCYTE # (test code = LY#) 0.46 x10 3/uL 1.0-3.8 L MONOCYTE # (test code = MO#) 0.85 x10 3/uL 0.1-0.8 H EOSINOPHIL # (test code = EO#) 0.14 x10 3/uL 0.0-0.2 N BASOPHIL # (test code = BA#) 0.04 x10 3/uL 0.0-0.2 N NUCLEATED RBC # (test code = NRBC#) 0.14 x10 3/uL 0.0-0.1 H MANUAL DIFF REQUIRED (test c ode = MDIFF) NO POC ARTERIAL BLOOD [id number] 04:18:00* Test Item Value Reference Range Interpretation Comme nts POC ARTERIAL BLOOD GAS PH (t est code = POCPHA) 7.351 7.35-7.45 N POC ARTERIAL BLOOD GAS PCO2 (test code = YSYYHI6F) 69.0 mmHg 35.0-45 HH POC TCO2 ARTERIAL (test code = POCTCO2) 40.5 POC ARTERIAL BLOOD GAS PO2 ( test code = DGRWE6Z) 94.8 mmHg 80-100.0 N POC HCO3 ARTERIAL (test code = TTKACX4L) 38.4 MMOL/L 22.0-26.0 HH POC BASE EXCESS (test code = POCBEA) 12.7 MMOL/L -4.0-4.0 H POC O2 SATURATION (test code = POCO2S) 96.7 % 90-100 N ABG DELIVERY (test code = MAAME) Cannula ABG TEMPERATURE (test code = TEMPA) 98 F ABG SITE (test code = SITEA) Art Line MARTIN'S TEST (test code = ALLENS) N/A BASIC METABOLIC [id number] 04:18:00* Test Item Value Reference Range Interpretation Comme nts SODIUM (test code = NA/ABG) 143 MEQ/L 134-147 N POTASSIUM (test code = K/ABG) 3.3 MEQ/L 3.4-5.0 L CHLORIDE (test code = CL/ABG) 96 MEQ/L 100-108 L CREATININE ABG (test code = CREAABG) 1.2 mg/dL 0.6-1.0 H POC IONIZED CALCIUM (test co de = POCCA) 1.35 MMOL/L 1.12-1.32 H POC GLUCOSE (test code = POCGLU) 157 MG/DL 70-110 H HEMOGLOBIN [id number] 04:18:00* Test Item Value Reference Range Interpretation Comme nts HEMOGLOBIN ABG (test code = HGB/ABG) 9.3 G/DL 11.0-15.0 L [id number] 04:18:00* Test Item Value Reference Range Interpretation Comme nts HEMATOCRIT (test code = HCT/ABG) 27 % 33.0-45.0 L POC LACTIC [id number] 04:18:00* Test Item Value Reference Range Interpretation Comme nts POC LACTIC ACID (test code = POCLAC) 0.6 mmol/l 0.9-1.7 L - XR CHEST 1 [id number] 00:00:00 [facility] 1945 Sex: F FAX: Jeffry Pennington MD [phone] [place]: St: ADM FAX: Dong Christiansen MD [phone] FAX: Solange Sawyer MD [phone] FAX: Colt Aguillon MD [phone] Name: KIAH GILES [facility] [place] : 1945 Age/S: 76/F [address] [place] [address] Blvd Unit #: [id number] Loc: G.[address] [place] [address] Phys: Solange Mohamud MD Acct: [id number] Dis Date: Status: ADM IN PHONE #: [phone] Exam Date: 01/02/2022530 FAX #: [phone] Reason: POST-OP CV SURGERY EXAMS: CPT CODE: [id number] XR CHEST 1 V [id number] INFORMATION: Exam: XR Chest Exam date and time: 01/02/2022 5:49 AM Age: 76 years old Clinical indication: Device placement; Cardiac defibrillator placementor adjustment; Additional info: Post-op cv surgery TECHNIQUE: Imaging protocol: Radiologic exam of the chest. Views: 1 view. COMPARISON: CR XR CHEST 1V 01/01/2022 5:09 AM FINDINGS: Tubes, catheters and devices: AICD device is present,and its leads are in appropriate position. Lungs: Bilateral opacities throughout the lungs, right greater than left. There is also confluent opacity in the right lower lung. These are unchanged compared to prior study. Pleural spaces: Unchanged. No pneumothorax. Heart/Mediastinum: The cardiac silhouette is unchanged. Vasculature: Aortic calcifications. Bones/joints: Status post median sternotomy.Degenerative changes in the spine and right shoulder. IMPRESSION: No acute findings. Unchanged study. at 0801 Reported and signed by: Syeda Leblanc M.D. CC: Jeffry More MD; Dong Fuchs MD; Solange Mohamud MD; Colt Vail MD Technologist: RT Jose(Marla) Trnscrd Date/Time/By: 01/02/2022 (800) : By: [email or web address] Orig Print D/T: S: 01/02/2022 (800) PAGE 1 Signed ReportGLUCOSE [id number] 21:48:00* Test Item Value Reference Range Interpretation Comme nts GLUCOSE BEDSIDE (test code = GLUBED) 196 MG/DL 70-110 H Performed by cer tified fondant machine operator at [facility] GLUCOSE [id number] 18:21:00* Test Item Value Reference Range Interpretation Comme nts GLUCOSE BEDSIDE (test code = GLUBED) 218 MG/DL 70-110 H Performed by cer tified fondant machine operator at [facility] GLUCOSE [id number] 12:23:00* Test Item Value Reference Range Interpretation Comme nts GLUCOSE BEDSIDE (test code = GLUBED) 191 MG/DL 70-110 H Performed by cer tified fondant machine operator at [facility] GLUCOSE [id number] 08:52:00* Test Item Value Reference Range Interpretation Comme [facility] GLUCOSE BEDSIDE (test code = GLUBED) 95 MG/DL 70-110 N Performed by cer tified fondant machine operator at [facility] POC ARTERIAL BLOOD [id number] 06:26:00* Test Item Value Reference Range Interpretation Comme nts POC ARTERIAL BLOOD GAS PH (t est code = POCPHA) 7.380 7.35-7.45 N POC ARTERIAL BLOOD GAS PCO2 (test code = BNKTKQ6Y) 65.2 mmHg 35.0-45 HH POC TCO2 ARTERIAL (test code = POCTCO2) 40.8 POC ARTERIAL BLOOD GAS PO2 ( test code = RWHPQ7C) 98.3 mmHg 80-100.0 N POC HCO3 ARTERIAL (test code = VUWMFC3T) 38.8 MMOL/L 22.0-26.0 HH POC BASE EXCESS (test code = POCBEA) 13.5 MMOL/L -4.0-4.0 H POC O2 SATURATION (test code = POCO2S) 97.3 % 90-100 N FIO2 (test code = FIO2A) 40 % PaO2/FiO2 (test code = PQK2ABL6) 245.75 mm/Hg ABG DELIVERY (test code = MAAME) BiPAP ABG VENT RESP RATE (test cod e = RRA) 20 /MIN ABG TIDAL VOLUME (test code = TVA) 450 ml ABG PEEP (test code = PEEPA) 8 cmH2O ABG PRESSURE SUPPORT (test c ode = PSABG) 18 cmH2O ABG TEMPERATURE (test code = TEMPA) 97.7 F ABG SITE (test code = SITEA) Art Line MARTIN'S TEST (test code = ALLENS) N/A BASIC METABOLIC [id number] 06:26:00* Test Item Value Reference Range Interpretation Comme [facility] SODIUM (test code = NA/ABG) 143 MEQ/L 134-147 N POTASSIUM (test code = K/ABG) 3.4 MEQ/L 3.4-5.0 N CHLORIDE (test code = CL/ABG) 93 MEQ/L 100-108 L CREATININE ABG (test code = CREAABG) 1.2 mg/dL 0.6-1.0 H POC IONIZED CALCIUM (test co de = POCCA) 1.33 MMOL/L 1.12-1.32 H POC GLUCOSE (test code = POCGLU) 90 MG/DL 70-110 N HEMOGLOBIN [id number] 06:26:00* Test Item Value Reference Range Interpretation Comme nts HEMOGLOBIN ABG (test code = HGB/ABG) 8.1 G/DL 11.0-15.0 L [id number] 06:26:00* Test Item Value Reference Range Interpretation Comme nts HEMATOCRIT (test code = HCT/ABG) 24 % 33.0-45.0 L POC LACTIC [id number] 06:26:00* Test Item Value Reference Range Interpretation Comme nts POC LACTIC ACID (test code = POCLAC) 0.4 mmol/l 0.9-1.7 L BASIC METABOLIC [id number] 04:01:00* Test Item Value Reference Range Interpretation Comme nts SODIUM (test code = NA) 141 mEq/L 134-147 N POTASSIUM (test code = K) 3.5 mEq/L 3.4-5.0 N CHLORIDE (test code = CL) 102 mEq/L 100-108 N CARBON DIOXIDE (test code = CO2) 37 mEq/l 21-33 H ANION GAP (test code = GAP) 6 0-20 N GLUCOSE (test code = GLU) 95 mg/dL 70-110 N BLOOD UREA NITROGEN (test code = BUN) 28 mg/dL 7-18 H GLOMERULAR FILTRATION RATE (test code = GFR) 53.6 70-80 L Units of measure = ml/min/1.73 m2 CREATININE (test code = CREAT) 1.0 mg/dL 0.6-1.3 N CALCIUM (test code = CA) 9.5 mg/dL 8.0-10.5 N [id number] 04:01:00* Test Item Value Reference Range Interpretation Comme nts MAGNESIUM (test code = MAG) 1.92 mg/dL 1.80-2.40 N CBC W/AUTO [id number] 03:40:00* Test Item Value Reference Range Interpretation Comme nts WHITE BLOOD CELL (test code = WBC) 9.4 x10 3/uL 4.5-11.0 N RED BLOOD CELL (test code = RBC) 2.11 x10 6/uL 3.54-5.02 L HEMOGLOBIN (test code = HGB) 7.5 g/dL 11.0-15.0 L HEMATOCRIT (test code = HCT) 23.2 % 33.0-45.0 L MEAN CELL VOLUME (test code = MCV) 110.0 fL 81.0-99.0 H MEAN CELL HGB (test code = MCH) 35.5 pg 27.0-33.0 H MEAN CELL HGB CONCETRATION (test code = MCHC) 32.3 g/dL 33.0-37.0 L RED CELL DISTRIBUTION WIDTH CV (test code = RDW) 16.9 % 11.5-14.5 H RED CELL DISTRIBUTION WIDTH SD (test code = RDW-SD) 65.3 fL 37.0-54.0 H PLATELET COUNT (test code = PLT) 245 x10 3/uL 150-400 N MEAN PLATELET VOLUME (test c ode = MPV) 10.8 fL 7.0-9.0 H NEUTROPHIL % (test code = NT%) 83.5 % 56.0-77.0 H IMMATURE GRANULOCYTE % (test code = IG%) 1.8 % 0.0-2.0 N LYMPHOCYTE % (test code = LY%) 6.1 % 14.0-32.0 L MONOCYTE % (test code = MO%) 7.0 % 4.8-9.0 N EOSINOPHIL % (test code = EO%) 1.4 % 0.3-3.7 N BASOPHIL % (test code = BA%) 0.2 % 0.0-2.0 N NUCLEATED RBC % (test code = NRBC%) 0.7 % 0-0 H NEUTROPHIL # (test code = NT#) 7.84 x10 3/uL 2.0-7.6 H IMMATURE GRANULOCYTE # (test code = IG#) 0.17 x10 3/uL 0.00-0.03 H LYMPHOCYTE # (test code = LY#) 0.57 x10 3/uL 1.0-3.8 L MONOCYTE # (test code = MO#) 0.66 x10 3/uL 0.1-0.8 N EOSINOPHIL # (test code = EO#) 0.13 x10 3/uL 0.0-0.2 N BASOPHIL # (test code = BA#) 0.02 x10 3/uL 0.0-0.2 N NUCLEATED RBC # (test code = NRBC#) 0.07 x10 3/uL 0.0-0.1 N MANUAL DIFF REQUIRED (test c ode = IFF) NO - XR CHEST 1 [id number] 00:00:00 [facility] 1945 Sex: F FAX: Jeffry Pennington MD [phone] [place]: St: ADM FAX: Dong Christiansen MD [phone] FAX: Solange Sawyer MD [phone] FAX: Colt Aguillon MD [phone] Name: KIAH GILES [facility] : 1945 Age/S: 76/F [address] [place] [address] Unit #: [id number] Loc: [facility] [place] [address] Phys: Solange Mohamud MD Acct: [id number] Dis Date: Status: ADM IN PHONE #: [phone] Exam Date: 01/01/2022 06 FAX #: [phone] Reason: POST-OP CV SURGERY EXAMS: CPT CODE: [id number] XR CHEST 1 V [id number] PROCEDURE INFORMATION: Exam: XR Chest Exam date and time: 01/01/2022 5:09 AM Age: 76 years old Clinical indication: Other: Cardiac surgery post op; Additional info: Post-op cv surgery TECHNIQUE: Imaging protocol: Radiologic exam of the chest. Views: 1 view. COMPARISON: CR XR CHEST 1V 12/31/2021 5:29AM FINDINGS: Tubes, catheters and devices: Pacemaker/ICD leads are stable. EKG leads overlie the chest. Mitral valve prosthesis is stable. Lungs: Bilateral hazy pulmonary opacities with ill-defined airspace opacities mid and lower lung zones. Bibasilar opacities obscuring the hemidiaphragms. Allowing for differences in technique and positioning, no significant change. Pleural spaces: There is nopneumothorax. Moderate volume layering pleural effusions grossly stable allowing for differences inpositioning on semi upright exam. Heart/Mediastinum: Moderate prominence of the cardiomediastinal silhouette is stable. The pulmonary vasculature is obscured. Bones/joints: Sternotomy wires are intact. IMPRESSION: Stable exam. Bilateral pulmonary opacities likely combination of airspace disease andatelectasis. Bilateral pleural effusions. Stable postoperative cardiomediastinal silhouette. at 0702 Reported and signed by: Avel Carlisle M.D. CC: Jeffry More MD; Dong Fuchs MD; Solange Mohamud MD; Colt Vail MD Technologist: Hali Leon RT(R) Trnscrd Date/Time/By: 01/01/2022 (701) : By: Catherine Orig PrintD/T: S: 01/01/2022 (701) PAGE 1 [facility] [id number] 20:21:00* Test Item Value Reference Range Interpretation Comme nts POC ARTERIAL BLOOD GAS PH (t est code = POCPHA) 7.396 7.35-7.45 N POC ARTERIAL BLOOD GAS PCO2 (test code = TMASXT2O) 59.8 mmHg 35.0-45 HH POC TCO2 ARTERIAL (test code = POCTCO2) 38.8 POC ARTERIAL BLOOD GAS PO2 ( test code = VJSED5E) 75.7 mmHg 80-100.0 L POC HCO3 ARTERIAL (test code = JKXGZX3M) 36.9 MMOL/L 22.0-26.0 HH POC BASE EXCESS (test code = POCBEA) 11.9 MMOL/L -4.0-4.0 H POC O2 SATURATION (test code = POCO2S) 94.9 % 90-100 N ABG DELIVERY (test code = MAAME) Cannula ABG TEMPERATURE (test code = TEMPA) 97.5 F ABG SITE (test code = SITEA) Art Line MARTIN'S TEST (test code = ALLENS) N/A BASIC METABOLIC [id number] 20:21:00* Test Item Value Reference Range Interpretation Comme nts SODIUM (test code = NA/ABG) 143 MEQ/L 134-147 N POTASSIUM (test code = K/ABG) 3.1 MEQ/L 3.4-5.0 L CHLORIDE (test code = CL/ABG) 96 MEQ/L 100-108 L CREATININE ABG (test code = CREAABG) 1.1 mg/dL 0.6-1.0 H POC IONIZED CALCIUM (test co de = POCCA) 1.33 MMOL/L 1.12-1.32 H POC GLUCOSE (test code = POCGLU) 190 MG/DL 70-110 H HEMOGLOBIN [id number] 20:21:00* Test Item Value Reference Range Interpretation Comme nts HEMOGLOBIN ABG (test code = HGB/ABG) 8.7 G/DL 11.0-15.0 L [id number] 20:21:00* Test Item Value Reference Range Interpretation Comme nts HEMATOCRIT (test code = HCT/ABG) 26 % 33.0-45.0 L POC LACTIC [id number] 20:21:00* Test Item Value Reference Range Interpretation Comme nts POC LACTIC ACID (test code = POCLAC) 1.0 mmol/l 0.9-1.7 N POC ARTERIAL BLOOD [id number] 16:38:00* Test Item Value Reference Range Interpretation Comme nts POC ARTERIAL BLOOD GAS PH (t est code = POCPHA) 7.402 7.35-7.45 N POC ARTERIAL BLOOD GAS PCO2 (test code = ETTLGU6I) 57.4 mmHg 35.0-45 HH POC TCO2 ARTERIAL (test code = POCTCO2) 37.7 POC ARTERIAL BLOOD GAS PO2 ( test code = RUIYV0G) 45.7 mmHg 80-100.0 LL POC HCO3 ARTERIAL (test code = BGUXXX6P) 35.9 MMOL/L 22.0-26.0 HH POC BASE EXCESS (test code = POCBEA) 11.0 MMOL/L -4.0-4.0 H POC O2 SATURATION (test code = POCO2S) 81.8 % 90-100 L FIO2 (test code = FIO2A) 32 % PaO2/FiO2 (test code = RDW5TAL6) 142.81 mm/Hg ABG TEMPERATURE (test code = TEMPA) 97.3 F ABG SITE (test code = SITEA) Art Line BASIC METABOLIC [id number] 16:38:00* Test Item Value Reference Range Interpretation Comme nts SODIUM (test code = NA/ABG) 142 MEQ/L 134-147 N POTASSIUM (test code = K/ABG) 3.5 MEQ/L 3.4-5.0 N CHLORIDE (test code = CL/ABG) 95 MEQ/L 100-108 L CREATININE ABG (test code = CREAABG) 0.9 mg/dL 0.6-1.0 N POC IONIZED CALCIUM (test co de = POCCA) 1.33 MMOL/L 1.12-1.32 H POC GLUCOSE (test code = POCGLU) 313 MG/DL 70-110 H HEMOGLOBIN [id number] 16:38:00* Test Item Value Reference Range Interpretation Comme nts HEMOGLOBIN ABG (test code = HGB/ABG) 9.3 G/DL 11.0-15.0 L [id number] 16:38:00* Test Item Value Reference Range Interpretation Comme nts HEMATOCRIT (test code = HCT/ABG) 27 % 33.0-45.0 L POC LACTIC [id number] 16:38:00* Test Item Value Reference Range Interpretation Comme nts POC LACTIC ACID (test code = POCLAC) 1.0 mmol/l 0.9-1.7 N GLUCOSE [id number] 12:28:00* Test Item Value Reference Range Interpretation Comme nts GLUCOSE BEDSIDE (test code = GLUBED) 149 MG/DL 70-110 H Performed by cer arlene fondant machine operator at [facility] CBC W/AUTO [id number] 11:32:00* Test Item Value Reference Range Interpretation Comme nts WHITE BLOOD CELL (test code = WBC) 7.9 x10 3/uL 4.5-11.0 N RED BLOOD CELL (test code = RBC) 2.36 x10 6/uL 3.54-5.02 L HEMOGLOBIN (test code = HGB) 8.9 g/dL 11.0-15.0 L HEMATOCRIT (test code = HCT) 26.0 % 33.0-45.0 L MEAN CELL VOLUME (test code = MCV) 110.2 fL 81.0-99.0 H MEAN CELL HGB (test code = MCH) 37.7 pg 27.0-33.0 H MEAN CELL HGB CONCETRATION (test code = MCHC) 34.2 g/dL 33.0-37.0 N RED CELL DISTRIBUTION WIDTH CV (test code = RDW) 16.8 % 11.5-14.5 H RED CELL DISTRIBUTION WIDTH SD (test code = RDW-SD) 64.8 fL 37.0-54.0 H PLATELET COUNT (test code = PLT) 220 x10 3/uL 150-400 N MEAN PLATELET VOLUME (test c ode = MPV) 10.7 fL 7.0-9.0 H NEUTROPHIL % (test code = NT%) 83.9 % 56.0-77.0 H IMMATURE GRANULOCYTE % (test code = IG%) 1.3 % 0.0-2.0 N LYMPHOCYTE % (test code = LY%) 4.5 % 14.0-32.0 L MONOCYTE % (test code = MO%) 8.5 % 4.8-9.0 N EOSINOPHIL % (test code = EO%) 1.5 % 0.3-3.7 N BASOPHIL % (test code = BA%) 0.3 % 0.0-2.0 N NUCLEATED RBC % (test code = NRBC%) 0.6 % 0-0 H NEUTROPHIL # (test code = NT#) 6.60 x10 3/uL 2.0-7.6 N IMMATURE GRANULOCYTE # (test code = IG#) 0.10 x10 3/uL 0.00-0.03 H LYMPHOCYTE # (test code = LY#) 0.35 x10 3/uL 1.0-3.8 L MONOCYTE # (test code = MO#) 0.67 x10 3/uL 0.1-0.8 N EOSINOPHIL # (test code = EO#) 0.12 x10 3/uL 0.0-0.2 N BASOPHIL # (test code = BA#) 0.02 x10 3/uL 0.0-0.2 N NUCLEATED RBC # (test code = NRBC#) 0.05 x10 3/uL 0.0-0.1 N MANUAL DIFF REQUIRED (test c ode = MDIFF) NO RBC [id number] 11:32:00* Test Item Value Reference Range Interpretation Comme nts ANISOCYTOSIS (test code = ANISO) 1+ POLYCHROMASIA (test code = POLC) 2+ HYPOCHROMIA (test code = HYPO) 1+ MACROCYTOSIS (test code = MACR) 1+ ROULEAUX (test code = ROU) 2+ POC ARTERIAL BLOOD [id number] 09:54:00* Test Item Value Reference Range Interpretation Comme nts POC ARTERIAL BLOOD GAS PH (t est code = POCPHA) 7.445 7.35-7.45 N POC ARTERIAL BLOOD GAS PCO2 (test code = HIBAQO8A) 50.2 mmHg 35.0-45 HH POC TCO2 ARTERIAL (test code = POCTCO2) 36.3 POC ARTERIAL BLOOD GAS PO2 ( test code = EGBRG0F) 41.6 mmHg 80-100.0 LL POC HCO3 ARTERIAL (test code = BNVZEU5R) 34.7 MMOL/L 22.0-26.0 HH POC BASE EXCESS (test code = POCBEA) 10.5 MMOL/L -4.0-4.0 H POC O2 SATURATION (test code = POCO2S) 80.0 % 90-100 L FIO2 (test code = FIO2A) 24 % PaO2/FiO2 (test code = IZB6GUU6) 173.33 mm/Hg ABG TEMPERATURE (test code = TEMPA) 97.2 F ABG SITE (test code = SITEA) Art Line BASIC METABOLIC [id number] 09:54:00* Test Item Value Reference Range Interpretation Comme nts SODIUM (test code = NA/ABG) 143 MEQ/L 134-147 N POTASSIUM (test code = K/ABG) 3.5 MEQ/L 3.4-5.0 N CHLORIDE (test code = CL/ABG) 96 MEQ/L 100-108 L CREATININE ABG (test code = CREAABG) 0.8 mg/dL 0.6-1.0 N POC IONIZED CALCIUM (test co de = POCCA) 1.32 MMOL/L 1.12-1.32 N POC GLUCOSE (test code = POCGLU) 175 MG/DL 70-110 H HEMOGLOBIN [id number] 09:54:00* Test Item Value Reference Range Interpretation Comme nts HEMOGLOBIN ABG (test code = HGB/ABG) 9.4 G/DL 11.0-15.0 L [id number] 09:54:00* Test Item Value Reference Range Interpretation Comme nts HEMATOCRIT (test code = HCT/ABG) 28 % 33.0-45.0 L POC LACTIC [id number] 09:54:00* Test Item Value Reference Range Interpretation Comme nts POC LACTIC ACID (test code = POCLAC) 0.8 mmol/l 0.9-1.7 L POC ARTERIAL BLOOD [id number] 08:57:00* Test Item Value Reference Range Interpretation Comme nts POC ARTERIAL BLOOD GAS PH (t est code = POCPHA) 7.444 7.35-7.45 N POC ARTERIAL BLOOD GAS PCO2 (test code = TDAUPO6I) 50.4 mmHg 35.0-45 HH POC TCO2 ARTERIAL (test code = POCTCO2) 36.1 POC ARTERIAL BLOOD GAS PO2 ( test code = AVESS4C) 33.9 mmHg 80-100.0 LL POC HCO3 ARTERIAL (test code = YOSCWS9T) 34.6 MMOL/L 22.0-26.0 HH POC BASE EXCESS (test code = POCBEA) 10.5 MMOL/L -4.0-4.0 H POC O2 SATURATION (test code = POCO2S) 66.6 % 90-100 L ABG DELIVERY (test code = MAAME) Room Air BASIC METABOLIC [id number] 08:57:00* Test Item Value Reference Range Interpretation Comme nts SODIUM (test code = NA/ABG) 143 MEQ/L 134-147 N POTASSIUM (test code = K/ABG) 3.6 MEQ/L 3.4-5.0 N CHLORIDE (test code = CL/ABG) 97 MEQ/L 100-108 L CREATININE ABG (test code = CREAABG) 0.8 mg/dL 0.6-1.0 N POC IONIZED CALCIUM (test co de = POCCA) 1.34 MMOL/L 1.12-1.32 H POC GLUCOSE (test code = POCGLU) 125 MG/DL 70-110 H HEMOGLOBIN [id number] 08:57:00* Test Item Value Reference Range Interpretation Comme nts HEMOGLOBIN ABG (test code = HGB/ABG) 9.4 G/DL 11.0-15.0 L [id number] 08:57:00* Test Item Value Reference Range Interpretation Comme nts HEMATOCRIT (test code = HCT/ABG) 28 % 33.0-45.0 L POC LACTIC [id number] 08:57:00* Test Item Value Reference Range Interpretation Comme nts POC LACTIC ACID (test code = POCLAC) 0.9 mmol/l 0.9-1.7 N GLUCOSE [id number] 08:05:00* Test Item Value Reference Range Interpretation Comme nts GLUCOSE BEDSIDE (test code = GLUBED) 82 MG/DL 70-110 N Performed by cer tified fondant machine operator at [facility] BASIC METABOLIC [id number] 04:53:00* Test Item Value Reference Range Interpretation Comme nts SODIUM (test code = NA) 142 mEq/L 134-147 N POTASSIUM (test code = K) 3.5 mEq/L 3.4-5.0 N CHLORIDE (test code = CL) 101 mEq/L 100-108 N CARBON DIOXIDE (test code = CO2) 38 mEq/l 21-33 H ANION GAP (test code = GAP) 7 0-20 N GLUCOSE (test code = GLU) 85 mg/dL 70-110 BLOOD UREA NITROGEN (test code = BUN) 31 mg/dL 7-18 H GLOMERULAR FILTRATION RATE (test code = GFR) 60.6 70-80 L Units of measure = ml/min/1.73 m2 CREATININE (test code = CREAT) 0.9 mg/dL 0.6-1.3 N CALCIUM (test code = CA) 9.8 mg/dL 8.0-10.5 N [id number] 04:53:00* Test Item Value Reference Range Interpretation Comme nts MAGNESIUM (test code = MAG) 2.24 mg/dL 1.80-2.40 POC ARTERIAL BLOOD [id number] 04:37:00* Test Item Value Reference Range Interpretation Comme nts POC ARTERIAL BLOOD GAS PH (t est code = POCPHA) 7.393 7.35-7.45 N POC ARTERIAL BLOOD GAS PCO2 (test code = AOJJPV0T) 66.2 mmHg 35.0-45 HH POC TCO2 ARTERIAL (test code = POCTCO2) 42.5 POC ARTERIAL BLOOD GAS PO2 ( test code = TWAXM3Z) 93.0 mmHg 80-100.0 N POC HCO3 ARTERIAL (test code = ORIVOL3I) 40.4 MMOL/L 22.0-26.0 HH POC BASE EXCESS (test code = POCBEA) 15.5 MMOL/L -4.0-4.0 H POC O2 SATURATION (test code = POCO2S) 96.8 % 90-100 N ABG DELIVERY (test code = MAAME) Cannula ABG TEMPERATURE (test code = TEMPA) 98.2 F ABG SITE (test code = SITEA) Art Line BASIC METABOLIC [id number] 04:37:00* Test Item Value Reference Range Interpretation Comme nts SODIUM (test code = NA/ABG) 146 MEQ/L 134-147 N POTASSIUM (test code = K/ABG) 3.1 MEQ/L 3.4-5.0 L CHLORIDE (test code = CL/ABG) 96 MEQ/L 100-108 L CREATININE ABG (test code = CREAABG) 1.0 mg/dL 0.6-1.0 N POC IONIZED CALCIUM (test co de = POCCA) 1.41 MMOL/L 1.12-1.32 H POC GLUCOSE (test code = POCGLU) 83 MG/DL 70-110 N HEMOGLOBIN [id number] 04:37:00* Test Item Value Reference Range Interpretation Comme nts HEMOGLOBIN ABG (test code = HGB/ABG) 15.1 G/DL 11.0-15.0 H [id number] 04:37:00* Test Item Value Reference Range Interpretation Comme nts HEMATOCRIT (test code = HCT/ABG) 44 % 33.0-45.0 N POC LACTIC [id number] 04:37:00* Test Item Value Reference Range Interpretation Comme nts POC LACTIC ACID (test code = POCLAC) 0.7 mmol/l 0.9-1.7 L - XR CHEST 1 [id number] 00:00:00 [facility] 1945 Sex: F FAX: Jeffry Pennington MD [phone] [place]: St: ADM FAX: Dong Christiansen MD [phone] FAX: Solange Sweeney MD [phone] FAX: Colt Aguillon MD [phone] Name: KIAH GILES [facility] : 1945 Age/S: 76/F [address] [place] [address] Unit #: [id number] Loc: G.[address] [place] [address] Phys: Solange Mohamud MD Acct: [id number] Dis Date: Status: ADM IN PHONE #: [phone] Exam Date: 12/31/2021628 FAX #: [phone] Reason: POST-OP CV SURGERY EXAMS: CPT CODE: [id number] XR CHEST 1 V 62591 PROCEDURE INFORMATION: Exam: XR Chest Exam date and time: 12/31/2021 5:29 AM Age: 76 years old Clinical indication: Other: Post-op cv surgery TECHNIQUE: Imaging protocol: Radiologic exam of the chest. Views: 1 view. COMPARISON: 1. CT CHEST W/O CONTRAST 12/30/2021 1:10 PM 2. CR XR CHEST 1V 12/30/2021 4:58 AM FINDINGS: Tubes, catheters and devices: Pacemaker/ICD leads are stable. EKG and epicardial pacer leads overlie the chest. Mitral valve prosthesis is stable. Lungs: Bilateral ill-defined pulmonary opacities with multifocal consolidation and or atelectasis redemonstrated. Bandlike opacity in the right mid lung zone marginated by the minor fissure appears [...] Jasmeet Carlisle M.D. CC: Jeffry More MD; Dong Fuchs MD; Solange Mohamud MD; Colt Vail MD Technologist: RT Caroline(R) Trnscrd Date/Time/By: 12/31/2021 (07) : By: AureliaKWL Orig Print D/T: S:12/31/2021 (08) PAGE 1 Signed ReportGLUCOSE [id number] 21:23:00* Test Item Value Reference Range Interpretation Comme nts GLUCOSE BEDSIDE (test code = GLUBED) 189 MG/DL 70-110 H Performed by cer tified fondant machine operator at [facility] BASIC METABOLIC [id number] 19:24:00* Test Item Value Reference Range Interpretation Comme nts SODIUM (test code = NA) 144 mEq/L 134-147 N POTASSIUM (test code = K) 3.5 mEq/L 3.4-5.0 N CHLORIDE (test code = CL) 99 mEq/L 100-108 L CARBON DIOXIDE (test code = CO2) 38 mEq/l 21-33 H ANION GAP (test code = GAP) 10 0-20 N GLUCOSE (test code = GLU) 204 mg/dL 70-110 H BLOOD UREA NITROGEN (test code = BUN) 38 mg/dL 7-18 H GLOMERULAR FILTRATION RATE (test code = GFR) 53.6 70-80 L Units of measure = ml/min/1.73 m2 CREATININE (test code = CREAT) 1.0 mg/dL 0.6-1.3 N CALCIUM (test code = CA) 9.8 mg/dL 8.0-10.5 N [id number] 19:24:00* Test Item Value Reference Range Interpretation Comme [facility] MAGNESIUM (test code = MAG) 1.84 mg/dL 1.80-2.40 GLUCOSE [id number] 17:33:00* Test Item Value Reference Range Interpretation Comme [facility] GLUCOSE BEDSIDE (test code = GLUBED) 213 MG/DL 70-110 H Performed by cer tified fondant machine operator at [facility] GLUCOSE [id number] 12:11:00* Test Item Value Reference Range Interpretation Comme [facility] GLUCOSE BEDSIDE (test code = GLUBED) 146 MG/DL 70-110 H Performed by cer tified fondant machine operator at [facility] POC ARTERIAL BLOOD [id number] 11:42:00* Test Item Value Reference Range Interpretation Comme [facility] POC ARTERIAL BLOOD GAS PH (t est code = POCPHA) 7.373 7.35-7.45 N POC ARTERIAL BLOOD GAS PCO2 (test code = TPVBZT9X) 60.9 mmHg 35.0-45 HH POC TCO2 ARTERIAL (test code = POCTCO2) 37.3 POC ARTERIAL BLOOD GAS PO2 ( test code = LIKIG7B) 57.7 mmHg 80-100.0 L POC HCO3 ARTERIAL (test code = UJNBUR5I) 35.5 MMOL/L 22.0-26.0 HH POC BASE EXCESS (test code = POCBEA) 10.2 MMOL/L -4.0-4.0 H POC O2 SATURATION (test code = POCO2S) 87.8 % 90-100 L ABG DELIVERY (test code = MAAME) HFNC ABG TEMPERATURE (test code = TEMPA) 98.6 F ABG SITE (test code = SITEA) L Radial MARTIN'S TEST (test code = ALLENS) N/A BASIC METABOLIC [id number] 11:42:00* Test Item Value Reference Range Interpretation Comme nts SODIUM (test code = NA/ABG) 145 MEQ/L 134-147 N POTASSIUM (test code = K/ABG) 3.1 MEQ/L 3.4-5.0 L CHLORIDE (test code = CL/ABG) 100 MEQ/L 100-108 N CREATININE ABG (test code = CREAABG) 1.0 mg/dL 0.6-1.0 POC IONIZED CALCIUM (test co de = POCCA) 1.31 MMOL/L 1.12-1.32 N POC GLUCOSE (test code = POCGLU) 103 MG/DL 70-110 N HEMOGLOBIN [id number] 11:42:00* Test Item Value Reference Range Interpretation Comme nts HEMOGLOBIN ABG (test code = HGB/ABG) 8.3 G/DL 11.0-15.0 L [id number] 11:42:00* Test Item Value Reference Range Interpretation Comme nts HEMATOCRIT (test code = HCT/ABG) 24 % 33.0-45.0 L POC LACTIC [id number] 11:42:00* Test Item Value Reference Range Interpretation Comme nts POC LACTIC ACID (test code = POCLAC) 0.7 mmol/l 0.9-1.7 L BASIC METABOLIC [id number] 05:54:00* Test Item Value Reference Range Interpretation Comme nts SODIUM (test code = NA) 143 mEq/L 134-147 N POTASSIUM (test code = K) 3.3 mEq/L 3.4-5.0 L CHLORIDE (test code = CL) 98 mEq/L 100-108 L CARBON DIOXIDE (test code = CO2) 38 mEq/l 21-33 H ANION GAP (test code = GAP) 10 0-20 N GLUCOSE (test code = GLU) 110 mg/dL 70-110 BLOOD UREA NITROGEN (test code = BUN) 35 mg/dL 7-18 H GLOMERULAR FILTRATION RATE (test code = GFR) 53.6 70-80 L Units of measure = ml/min/1.73 m2 CREATININE (test code = CREAT) 1.0 mg/dL 0.6-1.3 N CALCIUM (test code = CA) 9.9 mg/dL 8.0-10.5 N [id number] 05:54:00* Test Item Value Reference Range Interpretation Comme nts MAGNESIUM (test code = MAG) 2.23 mg/dL 1.80-2.40 N CBC W/AUTO [id number] 05:01:00* Test Item Value Reference Range Interpretation Comme nts WHITE BLOOD CELL (test code = WBC) 8.8 x10 3/uL 4.5-11.0 N RED BLOOD CELL (test code = RBC) 1.86 x10 6/uL 3.54-5.02 L HEMOGLOBIN (test code = HGB) 7.4 g/dL 11.0-15.0 L HEMATOCRIT (test code = HCT) 21.6 % 33.0-45.0 L MEAN CELL VOLUME (test code = MCV) 116.1 fL 81.0-99.0 H MEAN CELL HGB (test code = MCH) 39.8 pg 27.0-33.0 H MEAN CELL HGB CONCETRATION (test code = MCHC) 34.3 g/dL 33.0-37.0 N RED CELL DISTRIBUTION WIDTH CV (test code = RDW) 19.2 % 11.5-14.5 H RED CELL DISTRIBUTION WIDTH SD (test code = RDW-SD) 66.6 fL 37.0-54.0 H PLATELET COUNT (test code = PLT) 204 x10 3/uL 150-400 N MEAN PLATELET VOLUME (test c ode = MPV) 10.8 fL 7.0-9.0 H NEUTROPHIL % (test code = NT%) 82.8 % 56.0-77.0 H IMMATURE GRANULOCYTE % (test code = IG%) 1.7 % 0.0-2.0 N LYMPHOCYTE % (test code = LY%) 4.9 % 14.0-32.0 L MONOCYTE % (test code = MO%) 8.6 % 4.8-9.0 N EOSINOPHIL % (test code = EO%) 1.8 % 0.3-3.7 N BASOPHIL % (test code = BA%) 0.2 % 0.0-2.0 N NUCLEATED RBC % (test code = NRBC%) 0.5 % 0-0 H NEUTROPHIL # (test code = NT#) 7.24 x10 3/uL 2.0-7.6 N IMMATURE GRANULOCYTE # (test code = IG#) 0.15 x10 3/uL 0.00-0.03 H LYMPHOCYTE # (test code = LY#) 0.43 x10 3/uL 1.0-3.8 L MONOCYTE # (test code = MO#) 0.75 x10 3/uL 0.1-0.8 N EOSINOPHIL # (test code = EO#) 0.16 x10 3/uL 0.0-0.2 N BASOPHIL # (test code = BA#) 0.02 x10 3/uL 0.0-0.2 N NUCLEATED RBC # (test code = NRBC#) 0.04 x10 3/uL 0.0-0.1 N MANUAL DIFF REQUIRED (test c ode = MDIFF) NO POC ARTERIAL BLOOD [id number] 04:58:00* Test Item Value Reference Range Interpretation Comme nts POC ARTERIAL BLOOD GAS PH (t est code = POCPHA) 7.355 7.35-7.45 N POC ARTERIAL BLOOD GAS PCO2 (test code = VYNFFH4C) 68.7 mmHg 35.0-45 HH POC TCO2 ARTERIAL (test code = POCTCO2) 40.8 POC ARTERIAL BLOOD GAS PO2 ( test code = BCQBH0O) 61.3 mmHg 80-100.0 L POC HCO3 ARTERIAL (test code = QNMNFQ5H) 38.7 MMOL/L 22.0-26.0 HH POC BASE EXCESS (test code = POCBEA) 12.9 MMOL/L -4.0-4.0 H POC O2 SATURATION (test code = POCO2S) 89.8 % 90-100 L FIO2 (test code = FIO2A) 40 % PaO2/FiO2 (test code = XVA4BJZ5) 153.25 mm/Hg ABG DELIVERY (test code = MAAME) BiPAP ABG VENT RESP RATE (test cod e = RRA) 20 /MIN ABG PEEP (test code = PEEPA) 8 cmH2O ABG TEMPERATURE (test code = TEMPA) 97.2 F ABG SITE (test code = SITEA) Art Line BASIC METABOLIC [id number] 04:58:00* Test Item Value Reference Range Interpretation Comme nts SODIUM (test code = NA/ABG) 142 MEQ/L 134-147 N POTASSIUM (test code = K/ABG) 3.1 MEQ/L 3.4-5.0 L CHLORIDE (test code = CL/ABG) 94 MEQ/L 100-108 L CREATININE ABG (test code = CREAABG) 1.3 mg/dL 0.6-1.0 H POC IONIZED CALCIUM (test co de = POCCA) 1.34 MMOL/L 1.12-1.32 H POC GLUCOSE (test code = POCGLU) 112 MG/DL 70-110 H HEMOGLOBIN [id number] 04:58:00* Test Item Value Reference Range Interpretation Comme nts HEMOGLOBIN ABG (test code = HGB/ABG) 7.6 G/DL 11.0-15.0 L [id number] 04:58:00* Test Item Value Reference Range Interpretation Comme nts HEMATOCRIT (test code = HCT/ABG) 22 % 33.0-45.0 L POC LACTIC [id number] 04:58:00* Test Item Value Reference Range Interpretation Comme nts POC LACTIC ACID (test code = POCLAC) 0.5 mmol/l 0.9-1.7 L - CT CHEST W/O [id number] 00:00:00 [facility] 1945 Sex: F Name: KIAH GILES [facility] : 1945 Age/S: 76 / F [address] [place] [address] Unit #: [id number] Loc: [place] [address] Phys: Kena Macedo VISUAL [employer]ECT[employer] ARTIST Acct: [id number] Dis Date: Status: ADM IN PHONE #: [phone] Exam Date: 12/30/2021 1316 FAX #: [phone] Reason: EVAL WORSENING PULM OPPACITIES EXAMS: CPT CODE: [id number] CT CHEST W/O CONTRAST [id number] PROCEDURE INFORMATION: Exam: CT Chest Without Contrast; [...] The central airways are patent. Pleural spaces: Thereare small bilateral pleural effusions. Pleural fluid tracking into the major fissures bilateral. There is no pneumothorax. Heart: The heart is moderately enlarged. There are severe coronary arterial c alcifications. There are postoperative changes of interval CABG [...] IMPRESSION: PAGE 1 Signed Report (CONTINUED) Name: PASHA GILES [facility] : 1945 Age/S: 76 / F [address] [place] [address] Unit #: [id number] Loc: [place] [address] Phys: Kena Macedo NP Acct: [id number] Dis Date: Status: ADM IN PHONE #: [phone] Exam Date: 12/30/2021 1316 FAX #: [phone] Reason: EVAL WORSENING PULM OPPACITIESEXAMS: CPT CODE: [id number] CT CHEST W/O CONTRAST 03534 (Continued) 1. Bilateral multifocal ground-glass pulmonary opacities with associated interstitial septal thickening. Edema and [...] Small volume anterior mediastinal hematoma/seroma. REFERENCES: Michael S, et al., Rad[employer] Society [place] Expert Consensus Statement on Reporting Chest CT Findings Related to COVID-19. Endorsed by the Society of Thoracic Radiology, the [place] [employer], and RSNA. Published June 07, 2019. at 1433 Reported and signed by: Jasmeet Carlisle M.D. CC: Jeffry More MD; Dong Fuchs MD;Kena Macedo NP; Colt Vail MD Technologist:Ming Chapman, RT(R)(CT) CTDI: DLP: Trnscb Date/Time: 12/30/2021 (1433) Catherine Orig Print D/T: S: 12/30/2021 (1433) PAGE 2 Signed Report- XR CHEST 1 [id number] 00:00:00 [facility] : 1945 Sex: F FAX: Jeffry Pennington MD [phone] [place]: St: ADM FAX: Dong Christiansen MD [phone] FAX: Solange Sawyer MD [phone] FAX: Colt Aguillon MD [phone] Name: KIAH GILES [facility] [place] : 1945 Age/S: 76/F [address] [place] [address] Unit #: [id number] Loc: [address] [place] [id number] Phys: Solange Mohamud MD Acct: [id number] Dis Date: Status: ADM IN PHONE #: [phone] Exam Date: FAX #: [phone] Reason: POST-OP CV SURGERY EXAMS: CPT CODE: [id number] XR CHEST 1 V 28332 PROCEDURE INFORMATION: Exam: XR Chest Exam date and time: 12/30/2021 4:58 AM Age: 76 years old Clinical indication: Other: Post-op cv surgery TECHNIQUE: Imaging protocol: Radiologic exam of the chest.Views: 1 view. COMPARISON: 1. CR XR CHEST 1V 12/29/2021 5:18 AM 2. CR XR CHEST 1V 12/28/2021 5:57 AM 3. CR XR CHEST 1V 12/27/2021 5:54 AM FINDINGS: Tubes, catheters and devices: Pacemaker/ICD leads are stable. Mitral valve prosthesis is stable. EKG and epicardial pacer leads overlie the chest. Lungs: There are ill-defined pulmonary opacities bilateral with multifocal consolidation. Increased opacity in the right upper lobe marginated caudally by the minor fissure. Bibasilar opacities obscuringthe hemidiaphragms grossly stable otherwise. Pleural spaces: There [...] and pneumonia in the differential. 2. Stable pleuraleffusions with bibasilar atelectasis and or airspace disease. at 0706 Reported and signed by: Jasmeet Carlisle M.D. PAGE 1 Signed Report (CONTINUED) FAX: Jeffry Pennington MD [phone] [place]: St: ADM FAX: Dong Christiansen [facility] [phone] FAX: Solange Sawyer MD [phone] FAX: Colt Aguillon MD [phone] ------- Name: KIAH GILES [facility] : 1945 Age/S: 76/F [address] [place] [address] Unit #: [id number] Loc: [address] [place] [address] Phys: Solange Mohamud MD Acct: [id number] Dis Date: Status: ADM IN PHONE #: [phone] Exam Date: 12/30/2021611 FAX #: [phone] Reason: POST-OP CV SURGERY EXAMS: CPT CODE: [id number] XR CHEST 1 V 14185 (Continued) CC: Jeffry More MD; Dong Fuchs MD; Solange Mohamud MD; Colt Vail MD Technologist: Hali Leon RT(R) Trnscrd Date/Time/By: 12/30/2021 (705) : By: AureliaKWL Orig Print D/T: S: 12/30/2021 (705) PAGE 2 Signed ReportGLUCOSE [id number] 20:24:00* Test Item Value Reference Range Interpretation Comme nts GLUCOSE BEDSIDE (test code = GLUBED) 185 MG/DL 70-110 H Performed by cer tified fondant machine operator at [facility] GLUCOSE [id number] 18:05:00* Test Item Value Reference Range Interpretation Comme nts GLUCOSE BEDSIDE (test code = GLUBED) 197 MG/DL 70-110 H Performed by cer tified fondant machine operator at [facility] BASIC METABOLIC [id number] 12:52:00* Test Item Value Reference Range Interpretation Comme nts SODIUM (test code = NA) 142 mEq/L 134-147 N POTASSIUM (test code = K) 3.6 mEq/L 3.4-5.0 N CHLORIDE (test code = CL) 100 mEq/L 100-108 N CARBON DIOXIDE (test code = CO2) 38 mEq/l 21-33 H ANION GAP (test code = GAP) 7 0-20 N GLUCOSE (test code = GLU) 249 mg/dL 70-110 H BLOOD UREA NITROGEN (test code = BUN) 38 mg/dL 7-18 H GLOMERULAR FILTRATION RATE (test code = GFR) 48.0 70-80 L Units of measure = ml/min/1.73 m2 CREATININE (test code = CREAT) 1.1 mg/dL 0.6-1.3 N CALCIUM (test code = CA) 9.5 mg/dL 8.0-10.5 N [id number] 12:52:00* Test Item Value Reference Range Interpretation Comme nts MAGNESIUM (test code = MAG) 2.38 mg/dL 1.80-2.40 N GLUCOSE [id number] 12:29:00* Test Item Value Reference Range Interpretation Comme nts GLUCOSE BEDSIDE (test code = GLUBED) 236 MG/DL 70-110 H Performed by cer tified fondant machine operator at [facility] GLUCOSE [id number] 08:29:00* Test Item Value Reference Range Interpretation Comme nts GLUCOSE BEDSIDE (test code = GLUBED) 150 MG/DL 70-110 H Performed by cer tified fondant machine operator at [facility] GLUCOSE [id number] 05:47:00* Test Item Value Reference Range Interpretation Comme nts GLUCOSE BEDSIDE (test code = GLUBED) 126 MG/DL 70-110 H Performed by cer tified fondant machine operator at [facility] POC ARTERIAL BLOOD [id number] 05:42:00* Test Item Value Reference Range Interpretation Comme nts POC ARTERIAL BLOOD GAS PH (t est code = POCPHA) 7.357 7.35-7.45 N POC ARTERIAL BLOOD GAS PCO2 (test code = DYJNOB8S) 71.1 mmHg 35.0-45 HH POC TCO2 ARTERIAL (test code = POCTCO2) 42.4 POC ARTERIAL BLOOD GAS PO2 ( test code = MQXPH6X) 83.8 mmHg 80-100.0 N POC HCO3 ARTERIAL (test code = PBQILW1S) 40.1 MMOL/L 22.0-26.0 HH POC BASE EXCESS (test code = POCBEA) 14.5 MMOL/L -4.0-4.0 H POC O2 SATURATION (test code = POCO2S) 95.5 % 90-100 N FIO2 (test code = FIO2A) 40 % PaO2/FiO2 (test code = JIQ6XIL1) 209.50 mm/Hg ABG DELIVERY (test code = MAAME) BiPAP ABG TEMPERATURE (test code = TEMPA) 97.5 F ABG SITE (test code = SITEA) Art Line BASIC METABOLIC [id number] 05:42:00* Test Item Value Reference Range Interpretation Comme nts SODIUM (test code = NA/ABG) 144 MEQ/L 134-147 N POTASSIUM (test code = K/ABG) 3.9 MEQ/L 3.4-5.0 N CHLORIDE (test code = CL/ABG) 101 MEQ/L 100-108 N CREATININE ABG (test code = CREAABG) 1.1 mg/dL 0.6-1.0 H POC IONIZED CALCIUM (test co de = POCCA) 1.34 MMOL/L 1.12-1.32 H POC GLUCOSE (test code = POCGLU) 122 MG/DL 70-110 H HEMOGLOBIN [id number] 05:42:00* Test Item Value Reference Range Interpretation Comme nts HEMOGLOBIN ABG (test code = HGB/ABG) 7.8 G/DL 11.0-15.0 L [id number] 05:42:00* Test Item Value Reference Range Interpretation Comme nts HEMATOCRIT (test code = HCT/ABG) 23 % 33.0-45.0 L POC LACTIC [id number] 05:42:00* Test Item Value Reference Range Interpretation Comme nts POC LACTIC ACID (test code = POCLAC) 0.5 mmol/l 0.9-1.7 L [id number] 04:44:00* Test Item Value Reference Range Interpretation Comme nts MAGNESIUM (test code = MAG) 2.29 mg/dL 1.80-2.40 N BASIC METABOLIC [id number] 04:22:00* Test Item Value Reference Range Interpretation Comme nts SODIUM (test code = NA) 144 mEq/L 134-147 N POTASSIUM (test code = K) 4.1 mEq/L 3.4-5.0 N CHLORIDE (test code = CL) 103 mEq/L 100-108 N CARBON DIOXIDE (test code = CO2) 38 mEq/l 21-33 H ANION GAP (test code = GAP) 7 0-20 N GLUCOSE (test code = GLU) 143 mg/dL 70-110 H BLOOD UREA NITROGEN (test code = BUN) 40 mg/dL 7-18 H GLOMERULAR FILTRATION RATE (test code = GFR) 53.6 70-80 L Units of measure = ml/min/1.73 m2 CREATININE (test code = CREAT) 1.0 mg/dL 0.6-1.3 N CALCIUM (test code = CA) 9.5 mg/dL 8.0-10.5 N CBC W/AUTO [id number] 04:12:00* Test Item Value Reference Range Interpretation Comme nts WHITE BLOOD CELL (test code = WBC) 9.0 x10 3/uL 4.5-11.0 N RED BLOOD CELL (test code = RBC) 2.15 x10 6/uL 3.54-5.02 L HEMOGLOBIN (test code = HGB) 7.4 g/dL 11.0-15.0 L HEMATOCRIT (test code = HCT) 23.9 % 33.0-45.0 L MEAN CELL VOLUME (test code = MCV) 111.2 fL 81.0-99.0 H MEAN CELL HGB (test code = MCH) 34.4 pg 27.0-33.0 H MEAN CELL HGB CONCETRATION (test code = MCHC) 31.0 g/dL 33.0-37.0 L RED CELL DISTRIBUTION WIDTH CV (test code = RDW) 16.5 % 11.5-14.5 H RED CELL DISTRIBUTION WIDTH SD (test code = RDW-SD) 66.4 fL 37.0-54.0 H PLATELET COUNT (test code = PLT) 205 x10 3/uL 150-400 N MEAN PLATELET VOLUME (test c ode = MPV) 11.1 fL 7.0-9.0 H NEUTROPHIL % (test code = NT%) 83.4 % 56.0-77.0 H IMMATURE GRANULOCYTE % (test code = IG%) 1.8 % 0.0-2.0 N LYMPHOCYTE % (test code = LY%) 4.5 % 14.0-32.0 L MONOCYTE % (test code = MO%) 8.8 % 4.8-9.0 N EOSINOPHIL % (test code = EO%) 1.4 % 0.3-3.7 N BASOPHIL % (test code = BA%) 0.1 % 0.0-2.0 N NUCLEATED RBC % (test code = NRBC%) 0.7 % 0-0 H NEUTROPHIL # (test code = NT#) 7.48 x10 3/uL 2.0-7.6 N IMMATURE GRANULOCYTE # (test code = IG#) 0.16 x10 3/uL 0.00-0.03 H LYMPHOCYTE # (test code = LY#) 0.40 x10 3/uL 1.0-3.8 L MONOCYTE # (test code = MO#) 0.79 x10 3/uL 0.1-0.8 N EOSINOPHIL # (test code = EO#) 0.13 x10 3/uL 0.0-0.2 N BASOPHIL # (test code = BA#) 0.01 x10 3/uL 0.0-0.2 N NUCLEATED RBC # (test code = NRBC#) 0.06 x10 3/uL 0.0-0.1 N MANUAL DIFF REQUIRED (test c ode = MDIFF) NO GLUCOSE [id number] 03:12:00* Test Item Value Reference Range Interpretation Comme nts GLUCOSE BEDSIDE (test code = GLUBED) 124 MG/DL 70-110 H Performed by cer arlene fondant machine operator at [facility] POC ARTERIAL BLOOD [id number] 03:03:00* Test Item Value Reference Range Interpretation Comme nts POC ARTERIAL BLOOD GAS PH (t est code = POCPHA) 7.367 7.35-7.45 N POC ARTERIAL BLOOD GAS PCO2 (test code = XLNQRE7J) 73.2 mmHg 35.0-45 HH POC TCO2 ARTERIAL (test code = POCTCO2) 44.7 POC ARTERIAL BLOOD GAS PO2 ( test code = FSDYF3H) 84.4 mmHg 80-100.0 N POC HCO3 ARTERIAL (test code = WWFLIX7X) 42.4 MMOL/L 22.0-26.0 HH POC BASE EXCESS (test code = POCBEA) 16.9 MMOL/L -4.0-4.0 H POC O2 SATURATION (test code = POCO2S) 95.7 % 90-100 N FIO2 (test code = FIO2A) 40 % PaO2/FiO2 (test code = IUP0DLR7) 211.00 mm/Hg ABG DELIVERY (test code = MAAME) BiPAP ABG TEMPERATURE (test code = TEMPA) 97.5 F ABG SITE (test code = SITEA) Art Line BASIC METABOLIC [id number] 03:03:00* Test Item Value Reference Range Interpretation Comme nts SODIUM (test code = NA/ABG) 143 MEQ/L 134-147 N POTASSIUM (test code = K/ABG) 4.0 MEQ/L 3.4-5.0 N CHLORIDE (test code = CL/ABG) 99 MEQ/L 100-108 L CREATININE ABG (test code = CREAABG) 1.2 mg/dL 0.6-1.0 H POC IONIZED CALCIUM (test co de = POCCA) 1.34 MMOL/L 1.12-1.32 H POC GLUCOSE (test code = POCGLU) 125 MG/DL 70-110 H HEMOGLOBIN [id number] 03:03:00* Test Item Value Reference Range Interpretation Comme nts HEMOGLOBIN ABG (test code = HGB/ABG) 8.2 G/DL 11.0-15.0 L [id number] 03:03:00* Test Item Value Reference Range Interpretation Comme nts HEMATOCRIT (test code = HCT/ABG) 24 % 33.0-45.0 L POC LACTIC [id number] 03:03:00* Test Item Value Reference Range Interpretation Comme nts POC LACTIC ACID (test code = POCLAC) 0.5 mmol/l 0.9-1.7 L POC ARTERIAL BLOOD [id number] 02:09:00* Test Item Value Reference Range Interpretation Comme nts POC ARTERIAL BLOOD GAS PH (t est code = POCPHA) 7.327 7.35-7.45 L POC ARTERIAL BLOOD GAS PCO2 (test code = HIZDWU4Q) 80.5 mmHg 35.0-45 HH POC TCO2 ARTERIAL (test code = POCTCO2) 45.0 POC ARTERIAL BLOOD GAS PO2 ( test code = LJHDL5Q) 73.3 mmHg 80-100.0 L POC HCO3 ARTERIAL (test code = LVXBHW4I) 42.4 MMOL/L 22.0-26.0 HH POC BASE EXCESS (test code = POCBEA) 16.3 MMOL/L -4.0-4.0 H POC O2 SATURATION (test code = POCO2S) 92.8 % 90-100 N FIO2 (test code = FIO2A) 40 % PaO2/FiO2 (test code = CBF5GET9) 183.25 mm/Hg ABG DELIVERY (test code = MAAME) BiPAP ABG TEMPERATURE (test code = TEMPA) 97.5 F ABG SITE (test code = SITEA) Art Line BASIC METABOLIC [id number] 02:09:00* Test Item Value Reference Range Interpretation Comme nts SODIUM (test code = NA/ABG) 144 MEQ/L 134-147 N POTASSIUM (test code = K/ABG) 4.0 MEQ/L 3.4-5.0 N CHLORIDE (test code = CL/ABG) 99 MEQ/L 100-108 L CREATININE ABG (test code = CREAABG) 1.1 mg/dL 0.6-1.0 H POC IONIZED CALCIUM (test co de = POCCA) 1.35 MMOL/L 1.12-1.32 H POC GLUCOSE (test code = POCGLU) 106 MG/DL 70-110 N HEMOGLOBIN [id number] 02:09:00* Test Item Value Reference Range Interpretation Comme nts HEMOGLOBIN ABG (test code = HGB/ABG) 7.9 G/DL 11.0-15.0 L [id number] 02:09:00* Test Item Value Reference Range Interpretation Comme nts HEMATOCRIT (test code = HCT/ABG) 23 % 33.0-45.0 L POC LACTIC [id number] 02:09:00* Test Item Value Reference Range Interpretation Comme nts POC LACTIC ACID (test code = POCLAC) 0.5 mmol/l 0.9-1.7 L POC ARTERIAL BLOOD [id number] 01:21:00* Test Item Value Reference Range Interpretation Comme nts POC ARTERIAL BLOOD GAS PH (t est code = POCPHA) 7.326 7.35-7.45 L POC ARTERIAL BLOOD GAS PCO2 (test code = LSJLQS6R) 81.2 mmHg 35.0-45 HH POC TCO2 ARTERIAL (test code = POCTCO2) 45.3 POC ARTERIAL BLOOD GAS PO2 ( test code = RRZIM8G) 78.4 mmHg 80-100.0 L POC HCO3 ARTERIAL (test code = ESPHSB8Z) 42.8 MMOL/L 22.0-26.0 HH POC BASE EXCESS (test code = POCBEA) 16.6 MMOL/L -4.0-4.0 H POC O2 SATURATION (test code = POCO2S) 94.0 % 90-100 N FIO2 (test code = FIO2A) 40 % PaO2/FiO2 (test code = XMX2ZFX4) 196.00 mm/Hg ABG DELIVERY (test code = MAAME) BiPAP ABG TEMPERATURE (test code = TEMPA) 97.3 F ABG SITE (test code = SITEA) Art Line MARTIN'S TEST (test code = ALLENS) N/A BASIC METABOLIC [id number] 01:21:00* Test Item Value Reference Range Interpretation Comme nts SODIUM (test code = NA/ABG) 143 MEQ/L 134-147 N POTASSIUM (test code = K/ABG) 4.1 MEQ/L 3.4-5.0 N CHLORIDE (test code = CL/ABG) 98 MEQ/L 100-108 L CREATININE ABG (test code = CREAABG) 1.2 mg/dL 0.6-1.0 H POC IONIZED CALCIUM (test co de = POCCA) 1.34 MMOL/L 1.12-1.32 H POC GLUCOSE (test code = POCGLU) 120 MG/DL 70-110 H HEMOGLOBIN [id number] 01:21:00* Test Item Value Reference Range Interpretation Comme nts HEMOGLOBIN ABG (test code = HGB/ABG) 7.5 G/DL 11.0-15.0 L [id number] 01:21:00* Test Item Value Reference Range Interpretation Comme nts HEMATOCRIT (test code = HCT/ABG) 22 % 33.0-45.0 L POC LACTIC [id number] 01:21:00* Test Item Value Reference Range Interpretation Comme nts POC LACTIC ACID (test code = POCLAC) 0.7 mmol/l 0.9-1.7 L GLUCOSE [id number] 01:05:00* Test Item Value Reference Range Interpretation Comme nts GLUCOSE BEDSIDE (test code = GLUBED) 126 MG/DL 70-110 H Performed by cer tified fondant machine operator at [facility] GLUCOSE [id number] 00:10:00* Test Item Value Reference Range Interpretation Comme nts GLUCOSE BEDSIDE (test code = GLUBED) 120 MG/DL 70-110 H Performed by cer tified fondant machine operator at [facility] GLUCOSE [id number] 00:10:00* Test Item Value Reference Range Interpretation Comme nts GLUCOSE BEDSIDE (test code = GLUBED) 43 MG/DL 70-110 L Performed by [facility] XRONet fondant machine operator at [facility] - XR CHEST 1 [id number] 00:00:00 [facility] 1945 Sex: F FAX: Jeffry Pennington MD [phone] [place]: St: ADM FAX: Dong Christiansen MD [phone] FAX: Solange Sawyer MD [phone] FAX: Colt Aguillon MD [phone] Name: KIAH GILES [facility] [place] : 1945 Age/S: 76/F [address] [place] [address] Unit #: [id number] Loc: G.2205 [place] [address] Phys: Solange Mohamud MD Acct: [id number] Dis Date: Status: ADM IN PHONE #: [phone] Exam Date: FAX #: [phone] Reason: POST-OP CV SURGERY EXAMS: CPT CODE: [id number] XR CHEST 1 V 71187 PROCEDURE INFORMATION: Exam: XR Chest Exam date [...] Bill Kern M.D. CC: Jeffry More MD; Dong Fuchs MD; Solange Mohamud MD; Colt Vail MD Techn ologist: Earle Reyes RT(R) Trnscrd Date/Time/By: 12/29/2021 (701) : By: AureliaBP7 Orig PrintD/T: S: 12/29/2021 (701) PAGE 1 Signed ReportGLUCOSE [id number] 23:44:00* Test Item Value Reference Range Interpretation Comme nts GLUCOSE BEDSIDE (test code = GLUBED) 37 MG/DL 70-110 L Performed by BRAND-YOURSELF fondant machine operator at [facility] BASIC METABOLIC [id number] 21:29:00* Test Item Value Reference Range Interpretation Comme nts SODIUM (test code = NA) 145 mEq/L 134-147 N POTASSIUM (test code = K) 3.6 mEq/L 3.4-5.0 N CHLORIDE (test code = CL) 103 mEq/L 100-108 N CARBON DIOXIDE (test code = CO2) 39 mEq/l 21-33 H ANION GAP (test code = GAP) 7 0-20 N GLUCOSE (test code = GLU) 120 mg/dL 70-110 H BLOOD UREA NITROGEN (test code = BUN) 42 mg/dL 7-18 H GLOMERULAR FILTRATION RATE (test code = GFR) 53.6 70-80 L Units of measure = ml/min/1.73 m2 CREATININE (test code = CREAT) 1.0 mg/dL 0.6-1.3 N CALCIUM (test code = CA) 9.7 mg/dL 8.0-10.5 N GLUCOSE [id number] 21:20:00* Test Item Value Reference Range Interpretation Comme nts GLUCOSE BEDSIDE (test code = GLUBED) 117 MG/DL 70-110 H Performed by cer XRONet fondant machine operator at [facility] POC ARTERIAL BLOOD [id number] 21:09:00* Test Item Value Reference Range Interpretation Comme nts POC ARTERIAL BLOOD GAS PH (t est code = POCPHA) 7.363 7.35-7.45 N POC ARTERIAL BLOOD GAS PCO2 (test code = PMLFFF3H) 72.2 mmHg 35.0-45 HH POC TCO2 ARTERIAL (test code = POCTCO2) 43.4 POC ARTERIAL BLOOD GAS PO2 ( test code = UXVFG2S) 77.1 mmHg 80-100.0 L POC HCO3 ARTERIAL (test code = MDANZJ4H) 41.2 MMOL/L 22.0-26.0 HH POC BASE EXCESS (test code = POCBEA) 15.7 MMOL/L -4.0-4.0 H POC O2 SATURATION (test code = POCO2S) 94.1 % 90-100 N ABG DELIVERY (test code = MAAME) Cannula ABG TEMPERATURE (test code = TEMPA) 98.1 F ABG SITE (test code = SITEA) Art Line BASIC METABOLIC [id number] 21:09:00* Test Item Value Reference Range Interpretation Comme nts SODIUM (test code = NA/ABG) 144 MEQ/L 134-147 N POTASSIUM (test code = K/ABG) 3.5 MEQ/L 3.4-5.0 N CHLORIDE (test code = CL/ABG) 99 MEQ/L 100-108 L CREATININE ABG (test code = CREAABG) 1.5 mg/dL 0.6-1.0 H POC IONIZED CALCIUM (test co de = POCCA) 1.33 MMOL/L 1.12-1.32 H POC GLUCOSE (test code = POCGLU) 104 MG/DL 70-110 N HEMOGLOBIN [id number] 21:09:00* Test Item Value Reference Range Interpretation Comme nts HEMOGLOBIN ABG (test code = HGB/ABG) 8.2 G/DL 11.0-15.0 L [id number] 21:09:00* Test Item Value Reference Range Interpretation Comme nts HEMATOCRIT (test code = HCT/ABG) 24 % 33.0-45.0 L POC LACTIC [id number] 21:09:00* Test Item Value Reference Range Interpretation Comme nts POC LACTIC ACID (test code = POCLAC) 0.8 mmol/l 0.9-1.7 L GLUCOSE [id number] 19:27:00* Test Item Value Reference Range Interpretation Comme nts GLUCOSE BEDSIDE (test code = GLUBED) 139 MG/DL 70-110 H Performed by cer tified fondant machine operator at [facility] GLUCOSE [id number] 19:21:00* Test Item Value Reference Range Interpretation Comme nts GLUCOSE BEDSIDE (test code = GLUBED) 106 MG/DL 70-110 N Performed by cer tified fondant machine operator at [facility] GLUCOSE [id number] 16:45:00* Test Item Value Reference Range Interpretation Comme nts GLUCOSE BEDSIDE (test code = GLUBED) 162 MG/DL 70-110 H Performed by cer tified fondant machine operator at [facility] GLUCOSE [id number] 16:42:00* Test Item Value Reference Range Interpretation Comme nts GLUCOSE BEDSIDE (test code = GLUBED) 225 MG/DL 70-110 H Performed by cer tified fondant machine operator at [facility] POC ARTERIAL BLOOD [id number] 16:39:00* Test Item Value Reference Range Interpretation Comme nts POC ARTERIAL BLOOD GAS PH (t est code = POCPHA) 7.396 7.35-7.45 N POC ARTERIAL BLOOD GAS PCO2 (test code = ZAZIDS7J) 65.9 mmHg 35.0-45 HH POC TCO2 ARTERIAL (test code = POCTCO2) 42.7 POC ARTERIAL BLOOD GAS PO2 ( test code = YNIZC4W) 74.6 mmHg 80-100.0 L POC HCO3 ARTERIAL (test code = FFSJYN8H) 40.6 MMOL/L 22.0-26.0 HH POC BASE EXCESS (test code = POCBEA) 15.7 MMOL/L -4.0-4.0 H POC O2 SATURATION (test code = POCO2S) 94.3 % 90-100 N ABG DELIVERY (test code = MAAME) Cannula ABG TEMPERATURE (test code = TEMPA) 98 F ABG SITE (test code = SITEA) Art Line BASIC METABOLIC [id number] 16:39:00* Test Item Value Reference Range Interpretation Comme nts SODIUM (test code = NA/ABG) 143 MEQ/L 134-147 N POTASSIUM (test code = K/ABG) 3.6 MEQ/L 3.4-5.0 N CHLORIDE (test code = CL/ABG) 98 MEQ/L 100-108 L CREATININE ABG (test code = CREAABG) 1.2 mg/dL 0.6-1.0 H POC IONIZED CALCIUM (test co de = POCCA) 1.35 MMOL/L 1.12-1.32 H POC GLUCOSE (test code = POCGLU) 131 MG/DL 70-110 H HEMOGLOBIN [id number] 16:39:00* Test Item Value Reference Range Interpretation Comme nts HEMOGLOBIN ABG (test code = HGB/ABG) 8.5 G/DL 11.0-15.0 L [id number] 16:39:00* Test Item Value Reference Range Interpretation Comme nts HEMATOCRIT (test code = HCT/ABG) 25 % 33.0-45.0 L POC LACTIC [id number] 16:39:00* Test Item Value Reference Range Interpretation Comme nts POC LACTIC ACID (test code = POCLAC) 0.7 mmol/l 0.9-1.7 L GLUCOSE [id number] 14:00:00* Test Item Value Reference Range Interpretation Comme [facility] GLUCOSE BEDSIDE (test code = GLUBED) 212 MG/DL 70-110 H Performed by cer tified fondant machine operator at [facility] GLUCOSE [id number] 13:59:00* Test Item Value Reference Range Interpretation Comme [facility] GLUCOSE BEDSIDE (test code = GLUBED) 227 MG/DL 70-110 H Performed by cer tified fondant machine operator at [facility] BASIC METABOLIC [id number] 12:35:00* Test Item Value Reference Range Interpretation Comme nts SODIUM (test code = NA) 142 mEq/L 134-147 N POTASSIUM (test code = K) 4.0 mEq/L 3.4-5.0 N CHLORIDE (test code = CL) 101 mEq/L 100-108 N CARBON DIOXIDE (test code = CO2) 38 mEq/l 21-33 H ANION GAP (test code = GAP) 7 0-20 N GLUCOSE (test code = GLU) 295 mg/dL 70-110 H BLOOD UREA NITROGEN (test code = BUN) 38 mg/dL 7-18 H GLOMERULAR FILTRATION RATE (test code = GFR) 53.6 70-80 L Units of measure = ml/min/1.73 m2 CREATININE (test code = CREAT) 1.0 mg/dL 0.6-1.3 N CALCIUM (test code = CA) 9.5 mg/dL 8.0-10.5 N POC ARTERIAL BLOOD [id number] 11:40:00* Test Item Value Reference Range Interpretation Comme nts POC ARTERIAL BLOOD GAS PH (t est code = POCPHA) 7.349 7.35-7.45 L POC ARTERIAL BLOOD GAS PCO2 (test code = MJYUFK6H) 72.2 mmHg 35.0-45 HH POC TCO2 ARTERIAL (test code = POCTCO2) 42.2 POC ARTERIAL BLOOD GAS PO2 ( test code = GQAZB2Q) 95.9 mmHg 80-100.0 N POC HCO3 ARTERIAL (test code = GGNLLY4R) 39.9 MMOL/L 22.0-26.0 HH POC BASE EXCESS (test code = POCBEA) 14.2 MMOL/L -4.0-4.0 H POC O2 SATURATION (test code = POCO2S) 96.7 % 90-100 N FIO2 (test code = FIO2A) 40 % PaO2/FiO2 (test code = ANC2GDY0) 239.75 mm/Hg ABG DELIVERY (test code = MAAME) CPAP ABG TEMPERATURE (test code = TEMPA) 98 F ABG SITE (test code = SITEA) Art Line MARTIN'S TEST (test code = ALLENS) N/A BASIC METABOLIC [id number] 11:40:00* Test Item Value Reference Range Interpretation Comme nts SODIUM (test code = NA/ABG) 142 MEQ/L 134-147 N POTASSIUM (test code = K/ABG) 3.8 MEQ/L 3.4-5.0 N CHLORIDE (test code = CL/ABG) 95 MEQ/L 100-108 L CREATININE ABG (test code = CREAABG) 1.2 mg/dL 0.6-1.0 H POC IONIZED CALCIUM (test co de = POCCA) 1.27 MMOL/L 1.12-1.32 N POC GLUCOSE (test code = POCGLU) 303 MG/DL 70-110 H HEMOGLOBIN [id number] 11:40:00* Test Item Value Reference Range Interpretation Comme nts HEMOGLOBIN ABG (test code = HGB/ABG) 8.3 G/DL 11.0-15.0 L [id number] 11:40:00* Test Item Value Reference Range Interpretation Comme nts HEMATOCRIT (test code = HCT/ABG) 24 % 33.0-45.0 L POC LACTIC [id number] 11:40:00* Test Item Value Reference Range Interpretation Comme [facility] POC LACTIC ACID (test code = POCLAC) 0.7 mmol/l 0.9-1.7 L GLUCOSE [id number] 10:54:00* Test Item Value Reference Range Interpretation Comme nts GLUCOSE BEDSIDE (test code = GLUBED) 289 MG/DL 70-110 H Performed by cer tified fondant machine operator at [facility] GLUCOSE [id number] 07:48:00* Test Item Value Reference Range Interpretation Comme nts GLUCOSE BEDSIDE (test code = GLUBED) 107 MG/DL 70-110 N Performed by cer tified fondant machine operator at [facility] BASIC METABOLIC [id number] 04:25:00* Test Item Value Reference Range Interpretation Comme nts SODIUM (test code = NA) 145 mEq/L 134-147 N POTASSIUM (test code = K) 3.9 mEq/L 3.4-5.0 N CHLORIDE (test code = CL) 101 mEq/L 100-108 N CARBON DIOXIDE (test code = CO2) 40 mEq/l 21-33 H ANION GAP (test code = GAP) 8 0-20 N GLUCOSE (test code = GLU) 114 mg/dL 70-110 H BLOOD UREA NITROGEN (test code = BUN) 43 mg/dL 7-18 H GLOMERULAR FILTRATION RATE (test code = GFR) 53.6 70-80 L Units of measure = ml/min/1.73 m2 CREATININE (test code = CREAT) 1.0 mg/dL 0.6-1.3 N CALCIUM (test code = CA) 10.0 mg/dL 8.0-10.5 N [id number] 04:25:00* Test Item Value Reference Range Interpretation Comme nts MAGNESIUM (test code = MAG) 2.19 mg/dL 1.80-2.40 N CBC W/AUTO [id number] 04:02:00* Test Item Value Reference Range Interpretation Comme nts WHITE BLOOD CELL (test code = WBC) 8.1 x10 3/uL 4.5-11.0 N RED BLOOD CELL (test code = RBC) 2.13 x10 6/uL 3.54-5.02 L HEMOGLOBIN (test code = HGB) 7.8 g/dL 11.0-15.0 L HEMATOCRIT (test code = HCT) 23.6 % 33.0-45.0 L MEAN CELL VOLUME (test code = MCV) 110.8 fL 81.0-99.0 H MEAN CELL HGB (test code = MCH) 36.6 pg 27.0-33.0 H MEAN CELL HGB CONCETRATION (test code = MCHC) 33.1 g/dL 33.0-37.0 N RED CELL DISTRIBUTION WIDTH CV (test code = RDW) 16.2 % 11.5-14.5 H RED CELL DISTRIBUTION WIDTH SD (test code = RDW-SD) 63.6 fL 37.0-54.0 H PLATELET COUNT (test code = PLT) 212 x10 3/uL 150-400 N MEAN PLATELET VOLUME (test c ode = MPV) 10.9 fL 7.0-9.0 H NEUTROPHIL % (test code = NT%) 80.6 % 56.0-77.0 H IMMATURE GRANULOCYTE % (test code = IG%) 2.3 % 0.0-2.0 H LYMPHOCYTE % (test code = LY%) 5.4 % 14.0-32.0 L MONOCYTE % (test code = MO%) 10.0 % 4.8-9.0 H EOSINOPHIL % (test code = EO%) 1.6 % 0.3-3.7 N BASOPHIL % (test code = BA%) 0.1 % 0.0-2.0 N NUCLEATED RBC % (test code = NRBC%) 0.9 % 0-0 H NEUTROPHIL # (test code = NT#) 6.51 x10 3/uL 2.0-7.6 N IMMATURE GRANULOCYTE # (test code = IG#) 0.19 x10 3/uL 0.00-0.03 H LYMPHOCYTE # (test code = LY#) 0.44 x10 3/uL 1.0-3.8 L MONOCYTE # (test code = MO#) 0.81 x10 3/uL 0.1-0.8 H EOSINOPHIL # (test code = EO#) 0.13 x10 3/uL 0.0-0.2 N BASOPHIL # (test code = BA#) 0.01 x10 3/uL 0.0-0.2 N NUCLEATED RBC # (test code = NRBC#) 0.07 x10 3/uL 0.0-0.1 N MANUAL DIFF REQUIRED (test c ode = MDIFF) NO POC ARTERIAL BLOOD [id number] 03:44:00* Test Item Value Reference Range Interpretation Comme nts POC ARTERIAL BLOOD GAS PH (t est code = POCPHA) 7.408 7.35-7.45 N POC ARTERIAL BLOOD GAS PCO2 (test code = EBPACX2B) 63.1 mmHg 35.0-45 HH POC TCO2 ARTERIAL (test code = POCTCO2) 42.0 POC ARTERIAL BLOOD GAS PO2 ( test code = IRFHC5R) 58.6 mmHg 80-100.0 L POC HCO3 ARTERIAL (test code = NLBACR4M) 40.0 MMOL/L 22.0-26.0 HH POC BASE EXCESS (test code = POCBEA) 15.2 MMOL/L -4.0-4.0 H POC O2 SATURATION (test code = POCO2S) 89.7 % 90-100 L ABG DELIVERY (test code = MAAME) Cannula ABG TEMPERATURE (test code = TEMPA) 97.7 F ABG SITE (test code = SITEA) Art Line BASIC METABOLIC [id number] 03:44:00* Test Item Value Reference Range Interpretation Comme nts SODIUM (test code = NA/ABG) 144 MEQ/L 134-147 N POTASSIUM (test code = K/ABG) 3.7 MEQ/L 3.4-5.0 N CHLORIDE (test code = CL/ABG) 99 MEQ/L 100-108 L CREATININE ABG (test code = CREAABG) 1.0 mg/dL 0.6-1.0 N POC IONIZED CALCIUM (test co de = POCCA) 1.32 MMOL/L 1.12-1.32 N POC GLUCOSE (test code = POCGLU) 102 MG/DL 70-110 N HEMOGLOBIN [id number] 03:44:00* Test Item Value Reference Range Interpretation Comme nts HEMOGLOBIN ABG (test code = HGB/ABG) 8.4 G/DL 11.0-15.0 L [id number] 03:44:00* Test Item Value Reference Range Interpretation Comme nts HEMATOCRIT (test code = HCT/ABG) 25 % 33.0-45.0 L POC LACTIC [id number] 03:44:00* Test Item Value Reference Range Interpretation Comme nts POC LACTIC ACID (test code = POCLAC) 0.5 mmol/l 0.9-1.7 L GLUCOSE [id number] 01:41:00* Test Item Value Reference Range Interpretation Comme nts GLUCOSE BEDSIDE (test code = GLUBED) 130 MG/DL 70-110 H Performed by anna jacobs fondant machine operator at [facility] - XR CHEST 1 [id number] 00:00:00 [facility] 1945 Sex: F FAX: Jeffry Pennington MD [phone] [place]: St: ADM FAX: Dong Christiansen MD [phone] FAX: Solange Sawyer MD [phone] FAX: Colt Aguillon MD [phone] Name: KIAH GILES [facility] : 1945 Age/S: 76/F [address] [place] [address] Unit #: [id number] Loc: [address] [place] [address] Phys: Solange Mohamud MD Acct: [id number] Dis Date: Status: ADM IN PHONE #: [phone] Exam Date: 12/28/2021 0709 FAX #: [phone] Reason: POST-OP CV SURGERY EXAMS: CPT CODE: [id number] XR CHEST 1 V [id number] INFORMATION: Exam: XR Chest Exam date and [...] identified. Predominantly alveolar pulmonary edema versus infiltrates, pneumoniais demonstrated within the lungs. Basilar consolidation. Progression of lung opacities is demonstrated. Pleural spaces: Moderate volume bilateral pleural effusions. No pneumothorax identified. Heart/ Mediastinum: Cardiac silhouette appears moderate to severely enlarged. Bones/joints: Diffusely decreased bone density. Generalized bony degenerative changes. Sternotomy wires, hardware is demonstrated. Soft tissues: This study is limited by patient's body habitus. Other findings: Limited study withpatient rotation. IMPRESSION: 1. Moderate to severe enlarged cardiac silhouette. 2. Severe alveolar pulmonary edema versus pneumonia. Progression. 3. Moderate bilateral pleural effusions. at 0836 Reported and signed by: Leonard Escobar M.D. CC: Jeffry More MD; Dong Fuchs MD; Solange Mohamud MD; Colt Vail MD Technologist: Xenia Bashir, RT(R); Shell Min RT(R) Trnnhrd Date/Time/By: 12/28/2021 (0836) : By: [email or web address] Orig Print D/T: S: 12/28/2021 (36) PAGE 1 Signed ReportGLUCOSE [id number] 23:17:00* Test Item Value Reference Range Interpretation Comme nts GLUCOSE BEDSIDE (test code = GLUBED) 95 MG/DL 70-110 N Performed by anna jacobs fondant machine operator at [facility] POC ARTERIAL BLOOD [id number] 23:14:00* Test Item Value Reference Range Interpretation Comme nts POC ARTERIAL BLOOD GAS PH (t est code = POCPHA) 7.378 7.35-7.45 N POC ARTERIAL BLOOD GAS PCO2 (test code = BSKAED3Y) 71.2 mmHg 35.0-45 HH POC TCO2 ARTERIAL (test code = POCTCO2) 44.1 POC ARTERIAL BLOOD GAS PO2 ( test code = MIHCA4Q) 86.3 mmHg 80-100.0 N POC HCO3 ARTERIAL (test code = QYVFCQ4D) 41.9 MMOL/L 22.0-26.0 HH POC BASE EXCESS (test code = POCBEA) 16.7 MMOL/L -4.0-4.0 H POC O2 SATURATION (test code = POCO2S) 95.7 % 90-100 N ABG DELIVERY (test code = MAAME) Cannula ABG TEMPERATURE (test code = TEMPA) 98.6 F ABG SITE (test code = SITEA) Art Line BASIC METABOLIC [id number] 23:14:00* Test Item Value Reference Range Interpretation Comme nts SODIUM (test code = NA/ABG) 146 MEQ/L 134-147 N POTASSIUM (test code = K/ABG) 3.8 MEQ/L 3.4-5.0 N CHLORIDE (test code = CL/ABG) 100 MEQ/L 100-108 N CREATININE ABG (test code = CREAABG) 1.2 mg/dL 0.6-1.0 H POC IONIZED CALCIUM (test co de = POCCA) 1.25 MMOL/L 1.12-1.32 N POC GLUCOSE (test code = POCGLU) 86 MG/DL 70-110 N HEMOGLOBIN [id number] 23:14:00* Test Item Value Reference Range Interpretation Comme nts HEMOGLOBIN ABG (test code = HGB/ABG) 8.2 G/DL 11.0-15.0 L [id number] 23:14:00* Test Item Value Reference Range Interpretation Comme nts HEMATOCRIT (test code = HCT/ABG) 24 % 33.0-45.0 L POC LACTIC [id number] 23:14:00* Test Item Value Reference Range Interpretation Comme nts POC LACTIC ACID (test code = POCLAC) 0.7 mmol/l 0.9-1.7 L GLUCOSE [id number] 19:13:00* Test Item Value Reference Range Interpretation Comme nts GLUCOSE BEDSIDE (test code = GLUBED) 155 MG/DL 70-110 H Performed by cer tified fondant machine operator at [facility] FLUID [id number] 17:44:00* Test Item Value Reference Range Interpretation Comme nts FLUID CO2 (test code = CO2BF) 38 21-33 H FLUID [id number] 17:44:00* Test Item Value Reference Range Interpretation Comme nts FLUID CO2 (test code = CO2BF) 38 21-33 H GLUCOSE [id number] 17:18:00* Test Item Value Reference Range Interpretation Comme nts GLUCOSE BEDSIDE (test code = GLUBED) 116 MG/DL 70-110 H Performed by cer tified fondant machine operator at [facility] BASIC METABOLIC [id number] 16:33:00* Test Item Value Reference Range Interpretation Comme nts SODIUM (test code = NA) 145 mEq/L 134-147 N POTASSIUM (test code = K) 3.9 mEq/L 3.4-5.0 N CHLORIDE (test code = CL) 101 mEq/L 100-108 N CARBON DIOXIDE (test code = CO2) 38 mEq/l 21-33 H ANION GAP (test code = GAP) 10 0-20 N GLUCOSE (test code = GLU) 166 mg/dL 70-110 H BLOOD UREA NITROGEN (test code = BUN) 48 mg/dL 7-18 H GLOMERULAR FILTRATION RATE (test code = GFR) 53.6 70-80 L Units of measure = ml/min/1.73 m2 CREATININE (test code = CREAT) 1.0 mg/dL 0.6-1.3 N CALCIUM (test code = CA) 9.6 mg/dL 8.0-10.5 N [id number] 16:33:00* Test Item Value Reference Range Interpretation Comme nts MAGNESIUM (test code = MAG) 2.30 mg/dL 1.80-2.40 N GLUCOSE [id number] 15:13:00* Test Item Value Reference Range Interpretation Comme nts GLUCOSE BEDSIDE (test code = GLUBED) 198 MG/DL 70-110 H Performed by cer tified fondant machine operator at [facility] GLUCOSE [id number] 15:13:00* Test Item Value Reference Range Interpretation Comme nts GLUCOSE BEDSIDE (test code = GLUBED) 159 MG/DL 70-110 H Performed by cer tified fondant machine operator at [facility] BASIC METABOLIC [id number] 15:01:00* Test Item Value Reference Range Interpretation Comme nts SODIUM (test code = NA) 143 mEq/L 134-147 N POTASSIUM (test code = K) 3.9 mEq/L 3.4-5.0 N CHLORIDE (test code = CL) 101 mEq/L 100-108 N CARBON DIOXIDE (test code = CO2) 37 mEq/l 21-33 H ANION GAP (test code = GAP) 9 0-20 N GLUCOSE (test code = GLU) 220 mg/dL 70-110 H BLOOD UREA NITROGEN (test code = BUN) 43 mg/dL 7-18 H GLOMERULAR FILTRATION RATE (test code = GFR) 48.0 70-80 L Units of measure = ml/min/1.73 m2 CREATININE (test code = CREAT) 1.1 mg/dL 0.6-1.3 N CALCIUM (test code = CA) 9.8 mg/dL 8.0-10.5 N GLUCOSE [id number] 13:01:00* Test Item Value Reference Range Interpretation Comme nts GLUCOSE BEDSIDE (test code = GLUBED) 166 MG/DL 70-110 H Performed by cer tified fondant machine operator at [facility] GLUCOSE [id number] 12:00:00* Test Item Value Reference Range Interpretation Comme nts GLUCOSE BEDSIDE (test code = GLUBED) 149 MG/DL 70-110 H Performed by cer tified fondant machine operator at [facility] BASIC METABOLIC [id number] 11:08:00* Test Item Value Reference Range Interpretation Comme nts SODIUM (test code = NA) 144 mEq/L 134-147 N POTASSIUM (test code = K) 3.4 mEq/L 3.4-5.0 N CHLORIDE (test code = CL) 99 mEq/L 100-108 L CARBON DIOXIDE (test code = CO2) > 40 mEq/l 21-33 H ANION GAP (test code = GAP) 8 0-20 N GLUCOSE (test code = GLU) 193 mg/dL 70-110 H BLOOD UREA NITROGEN (test code = BUN) 49 mg/dL 7-18 H GLOMERULAR FILTRATION RATE (test code = GFR) 48.0 70-80 L Units of measure = ml/min/1.73 m2 CREATININE (test code = CREAT) 1.1 mg/dL 0.6-1.3 N CALCIUM (test code = CA) 10.0 mg/dL 8.0-10.5 N GLUCOSE [id number] 10:29:00* Test Item Value Reference Range Interpretation Comme nts GLUCOSE BEDSIDE (test code = GLUBED) 183 MG/DL 70-110 H Performed by anna jacobs fondant machine operator at [facility] POC ARTERIAL BLOOD [id number] 10:20:00* Test Item Value Reference Range Interpretation Comme nts POC ARTERIAL BLOOD GAS PH (t est code = POCPHA) 7.430 7.35-7.45 N POC ARTERIAL BLOOD GAS PCO2 (test code = XURKGP4L) 63.2 mmHg 35.0-45 HH POC TCO2 ARTERIAL (test code = POCTCO2) 44.1 POC ARTERIAL BLOOD GAS PO2 ( test code = ZXVJA3M) 73.3 mmHg 80-100.0 L POC HCO3 ARTERIAL (test code = DLUFUQ0O) 42.1 MMOL/L 22.0-26.0 HH POC BASE EXCESS (test code = POCBEA) 17.7 MMOL/L -4.0-4.0 H POC O2 SATURATION (test code = POCO2S) 94.5 % 90-100 N ABG DELIVERY (test code = MAAME) Cannula ABG TEMPERATURE (test code = TEMPA) 98 F ABG SITE (test code = SITEA) Art Line MARTIN'S TEST (test code = ALLENS) N/A BASIC METABOLIC [id number] 10:20:00* Test Item Value Reference Range Interpretation Comme nts SODIUM (test code = NA/ABG) 143 MEQ/L 134-147 N POTASSIUM (test code = K/ABG) 3.2 MEQ/L 3.4-5.0 L CHLORIDE (test code = CL/ABG) 94 MEQ/L 100-108 L CREATININE ABG (test code = CREAABG) 1.3 mg/dL 0.6-1.0 H POC IONIZED CALCIUM (test co de = POCCA) 1.32 MMOL/L 1.12-1.32 N POC GLUCOSE (test code = POCGLU) 184 MG/DL 70-110 H HEMOGLOBIN [id number] 10:20:00* Test Item Value Reference Range Interpretation Comme nts HEMOGLOBIN ABG (test code = HGB/ABG) 8.5 G/DL 11.0-15.0 L [id number] 10:20:00* Test Item Value Reference Range Interpretation Comme nts HEMATOCRIT (test code = HCT/ABG) 25 % 33.0-45.0 L POC LACTIC [id number] 10:20:00* Test Item Value Reference Range Interpretation Comme nts POC LACTIC ACID (test code = POCLAC) 1.2 mmol/l 0.9-1.7 N GLUCOSE [id number] 09:11:00* Test Item Value Reference Range Interpretation Comme nts GLUCOSE BEDSIDE (test code = GLUBED) 235 MG/DL 70-110 H Performed by cer tified fondant machine operator at [facility] GLUCOSE [id number] 08:15:00* Test Item Value Reference Range Interpretation Comme nts GLUCOSE BEDSIDE (test code = GLUBED) 259 MG/DL 70-110 H Performed by cer tified fondant machine operator at [facility] GLUCOSE [id number] 05:53:00* Test Item Value Reference Range Interpretation Comme nts GLUCOSE BEDSIDE (test code = GLUBED) 203 MG/DL 70-110 H Performed by cer tified fondant machine operator at [facility] CBC W/AUTO [id number] 04:38:00* Test Item Value Reference Range Interpretation Comme nts WHITE BLOOD CELL (test code = WBC) 8.4 x10 3/uL 4.5-11.0 N RED BLOOD CELL (test code = RBC) 2.26 x10 6/uL 3.54-5.02 L HEMOGLOBIN (test code = HGB) 7.7 g/dL 11.0-15.0 L HEMATOCRIT (test code = HCT) 24.7 % 33.0-45.0 L MEAN CELL VOLUME (test code = MCV) 109.3 fL 81.0-99.0 H MEAN CELL HGB (test code = MCH) 34.1 pg 27.0-33.0 H MEAN CELL HGB CONCETRATION (test code = MCHC) 31.2 g/dL 33.0-37.0 L RED CELL DISTRIBUTION WIDTH CV (test code = RDW) 15.9 % 11.5-14.5 H RED CELL DISTRIBUTION WIDTH SD (test code = RDW-SD) 63.5 fL 37.0-54.0 H PLATELET COUNT (test code = PLT) 184 x10 3/uL 150-400 N MEAN PLATELET VOLUME (test c ode = MPV) 11.2 fL 7.0-9.0 H NEUTROPHIL % (test code = NT%) 78.4 % 56.0-77.0 H IMMATURE GRANULOCYTE % (test code = IG%) 2.4 % 0.0-2.0 H LYMPHOCYTE % (test code = LY%) 5.2 % 14.0-32.0 L MONOCYTE % (test code = MO%) 12.6 % 4.8-9.0 H EOSINOPHIL % (test code = EO%) 1.3 % 0.3-3.7 N BASOPHIL % (test code = BA%) 0.1 % 0.0-2.0 N NUCLEATED RBC % (test code = NRBC%) 1.5 % 0-0 H NEUTROPHIL # (test code = NT#) 6.57 x10 3/uL 2.0-7.6 N IMMATURE GRANULOCYTE # (test code = IG#) 0.20 x10 3/uL 0.00-0.03 H LYMPHOCYTE # (test code = LY#) 0.44 x10 3/uL 1.0-3.8 L MONOCYTE # (test code = MO#) 1.06 x10 3/uL 0.1-0.8 H EOSINOPHIL # (test code = EO#) 0.11 x10 3/uL 0.0-0.2 N BASOPHIL # (test code = BA#) 0.01 x10 3/uL 0.0-0.2 N NUCLEATED RBC # (test code = NRBC#) 0.13 x10 3/uL 0.0-0.1 H MANUAL DIFF REQUIRED (test c ode = MDIFF) NO BASIC METABOLIC [id number] 04:19:00* Test Item Value Reference Range Interpretation Comme nts SODIUM (test code = NA) 148 mEq/L 134-147 H POTASSIUM (test code = K) 3.5 mEq/L 3.4-5.0 N CHLORIDE (test code = CL) 101 mEq/L 100-108 N CARBON DIOXIDE (test code = CO2) 38 mEq/l 21-33 H ANION GAP (test code = GAP) 13 0-20 N GLUCOSE (test code = GLU) 101 mg/dL 70-110 BLOOD UREA NITROGEN (test code = BUN) 49 mg/dL 7-18 H GLOMERULAR FILTRATION RATE (test code = GFR) 60.6 70-80 L Units of measure = ml/min/1.73 m2 CREATININE (test code = CREAT) 0.9 mg/dL 0.6-1.3 N CALCIUM (test code = CA) 9.9 mg/dL 8.0-10.5 N [id number] 04:19:00* Test Item Value Reference Range Interpretation Comme nts MAGNESIUM (test code = MAG) 2.20 mg/dL 1.80-2.40 N POC ARTERIAL BLOOD [id number] 02:45:00* Test Item Value Reference Range Interpretation Comme nts POC ARTERIAL BLOOD GAS PH (t est code = POCPHA) 7.388 7.35-7.45 N POC ARTERIAL BLOOD GAS PCO2 (test code = BFAIUS9E) 70.2 mmHg 35.0-45 HH POC TCO2 ARTERIAL (test code = POCTCO2) 44.5 POC ARTERIAL BLOOD GAS PO2 ( test code = DIEYU9Q) 85.6 mmHg 80-100.0 N POC HCO3 ARTERIAL (test code = FDTOEP9Y) 42.4 MMOL/L 22.0-26.0 HH POC BASE EXCESS (test code = POCBEA) 17.4 MMOL/L -4.0-4.0 H POC O2 SATURATION (test code = POCO2S) 95.8 % 90-100 N FIO2 (test code = FIO2A) 50 % PaO2/FiO2 (test code = VEW9UYV6) 171.20 mm/Hg ABG DELIVERY (test code = MAAME) BiPAP ABG PEEP (test code = PEEPA) 5 cmH2O ABG TEMPERATURE (test code = TEMPA) 98.4 F ABG SITE (test code = SITEA) Art Line BASIC METABOLIC [id number] 02:45:00* Test Item Value Reference Range Interpretation Comme nts SODIUM (test code = NA/ABG) 145 MEQ/L 134-147 N POTASSIUM (test code = K/ABG) 3.2 MEQ/L 3.4-5.0 L CHLORIDE (test code = CL/ABG) 98 MEQ/L 100-108 L CREATININE ABG (test code = CREAABG) 1.0 mg/dL 0.6-1.0 N POC IONIZED CALCIUM (test co de = POCCA) 1.36 MMOL/L 1.12-1.32 H POC GLUCOSE (test code = POCGLU) 95 MG/DL 70-110 N HEMOGLOBIN [id number] 02:45:00* Test Item Value Reference Range Interpretation Comme nts HEMOGLOBIN ABG (test code = HGB/ABG) 8.2 G/DL 11.0-15.0 L [id number] 02:45:00* Test Item Value Reference Range Interpretation Comme nts HEMATOCRIT (test code = HCT/ABG) 24 % 33.0-45.0 L POC LACTIC [id number] 02:45:00* Test Item Value Reference Range Interpretation Comme nts POC LACTIC ACID (test code = POCLAC) 0.6 mmol/l 0.9-1.7 L GLUCOSE [id number] 02:04:00* Test Item Value Reference Range Interpretation Comme [facility] GLUCOSE BEDSIDE (test code = GLUBED) 86 MG/DL 70-110 N Performed by cer tified fondant machine operator at [facility] GLUCOSE [id number] 00:36:00* Test Item Value Reference Range Interpretation Comme nts GLUCOSE BEDSIDE (test code = GLUBED) 72 MG/DL 70-110 N Performed by cer tified fondant machine operator at [facility] - XR CHEST 1 [id number] 00:00:00 [facility] 1945 Sex: F FAX: Jeffry Pennington MD [phone] [place]: St: ADM FAX: Dong Christiansen MD [phone] FAX: Solange Sawyer MD [phone] FAX: Colt Aguillon MD [phone] Name: KIAH GILES [facility] : 1945 Age/S: 76/F [address] [place] [address] Unit #: [id number] Loc: [address] [place] [address] Phys: Solange Mohamud MD Acct: [id number] Dis Date: Status: ADM IN PHONE #: [phone] Exam Date: 12/27/2021731 FAX #: [phone] Reason: S/P CABG EXAMS: CPT CODE: [id number] XR CHEST 1 V 18745 PROCEDUREINFORMATION: Exam: XR Chest Exam date and time: 12/27/2021 5:54 AM Age: 76 years old Clinical indication: Other: S/P cabg TECHNIQUE: Imaging protocol: Radiologic exam of the chest. Views: 1 view. COMPARISON: CR XR CHEST 1V 12/26/2021 5:19 AM FINDINGS: Tubes, catheters and devices: Stable left multilead pacemaker with no visible complication. Lungs: Persistent bilateral alveolar airspace disease.Pleural spaces: Stable to slightly improved bilateral layering [...] at 1005 Reported and signed by: Jonathan Li M.D. CC: Jeffry More MD; Dong Fuchs MD; Solange Mohamud MD; Colt Vail MD Technologist: Shell Min, RT(R); Debbie Fuentes, RT(R) Trnscrd Date/Time/By: 12/27/2021 (1000) : By: [email or web address] Orig Print D/T: S: 12/27/2021 (3415) PAGE 1 Signed ReportGLUCOSE [id number] 22:21:00* Test Item Value Reference Range Interpretation Comme nts GLUCOSE BEDSIDE (test code = GLUBED) 148 MG/DL 70-110 H Performed by cer tified fondant machine operator at [facility] GLUCOSE [id number] 20:05:00* Test Item Value Reference Range Interpretation Comme nts GLUCOSE BEDSIDE (test code = GLUBED) 232 MG/DL 70-110 H Performed by [facility] tified fondant machine operator at [facility] BASIC METABOLIC [id number] 18:16:00* Test Item Value Reference Range Interpretation Comme nts SODIUM (test code = NA) 144 mEq/L 134-147 N POTASSIUM (test code = K) 3.8 mEq/L 3.4-5.0 N CHLORIDE (test code = CL) 101 mEq/L 100-108 N CARBON DIOXIDE (test code = CO2) 38 mEq/l 21-33 H ANION GAP (test code = GAP) 9 0-20 N GLUCOSE (test code = GLU) 287 mg/dL 70-110 H BLOOD UREA NITROGEN (test code = BUN) 54 mg/dL 7-18 H GLOMERULAR FILTRATION RATE (test code = GFR) 53.6 70-80 L Units of measure = ml/min/1.73 m2 CREATININE (test code = CREAT) 1.0 mg/dL 0.6-1.3 N CALCIUM (test code = CA) 9.8 mg/dL 8.0-10.5 N [id number] 18:16:00* Test Item Value Reference Range Interpretation Comme nts PHOSPHOROUS (test code = PHOS) 3.0 MG/DL 2.5-4.9 N [id number] 18:16:00* Test Item Value Reference Range Interpretation Comme nts MAGNESIUM (test code = MAG) 2.30 mg/dL 1.80-2.40 N GLUCOSE [id number] 17:47:00* Test Item Value Reference Range Interpretation Comme nts GLUCOSE BEDSIDE (test code = GLUBED) 283 MG/DL 70-110 H Performed by anna jacobs fondant machine operator at [facility] BASIC METABOLIC [id number] 13:10:00* Test Item Value Reference Range Interpretation Comme nts SODIUM (test code = NA) 144 mEq/L 134-147 N POTASSIUM (test code = K) 3.9 mEq/L 3.4-5.0 N CHLORIDE (test code = CL) 101 mEq/L 100-108 N CARBON DIOXIDE (test code = CO2) 39 mEq/l 21-33 H ANION GAP (test code = GAP) 8 0-20 N GLUCOSE (test code = GLU) 207 mg/dL 70-110 H BLOOD UREA NITROGEN (test code = BUN) 55 mg/dL 7-18 H GLOMERULAR FILTRATION RATE (test code = GFR) 60.6 70-80 L Units of measure = ml/min/1.73 m2 CREATININE (test code = CREAT) 0.9 mg/dL 0.6-1.3 N CALCIUM (test code = CA) 10.1 mg/dL 8.0-10.5 N [id number] 13:10:00* Test Item Value Reference Range Interpretation Comme [facility] MAGNESIUM (test code = MAG) 2.43 mg/dL 1.80-2.40 H CALCIUM [id number] 13:10:00* Test Item Value Reference Range Interpretation Comme [facility] CALCIUM IONIZED (test code = TYREE) 1.22 MMOL/L 1.09-1.30 N POC ARTERIAL BLOOD [id number] 12:53:00* Test Item Value Reference Range Interpretation Comme [facility] POC ARTERIAL BLOOD GAS PH (t est code = POCPHA) 7.356 7.35-7.45 N POC ARTERIAL BLOOD GAS PCO2 (test code = BAJMKN7K) 69.2 mmHg 35.0-45 HH POC TCO2 ARTERIAL (test code = POCTCO2) 40.9 POC ARTERIAL BLOOD GAS PO2 ( test code = KXQAE9A) 128.4 mmHg 80-100.0 H POC HCO3 ARTERIAL (test code = YSASUE3K) 38.8 MMOL/L 22.0-26.0 HH POC BASE EXCESS (test code = POCBEA) 13.2 MMOL/L -4.0-4.0 H POC O2 SATURATION (test code = POCO2S) 98.6 % 90-100 N ABG DELIVERY (test code = MAAME) HFNC ABG SITE (test code = SITEA) Art Line BASIC METABOLIC [id number] 12:53:00* Test Item Value Reference Range Interpretation Comme nts SODIUM (test code = NA/ABG) 145 MEQ/L 134-147 N POTASSIUM (test code = K/ABG) 3.8 MEQ/L 3.4-5.0 N CHLORIDE (test code = CL/ABG) 99 MEQ/L 100-108 L CREATININE ABG (test code = CREAABG) 1.0 mg/dL 0.6-1.0 N POC IONIZED CALCIUM (test co de = POCCA) 1.37 MMOL/L 1.12-1.32 H POC GLUCOSE (test code = POCGLU) 203 MG/DL 70-110 H HEMOGLOBIN [id number] 12:53:00* Test Item Value Reference Range Interpretation Comme nts HEMOGLOBIN ABG (test code = HGB/ABG) 8.6 G/DL 11.0-15.0 L [id number] 12:53:00* Test Item Value Reference Range Interpretation Comme nts HEMATOCRIT (test code = HCT/ABG) 25 % 33.0-45.0 L POC LACTIC [id number] 12:53:00* Test Item Value Reference Range Interpretation Comme nts POC LACTIC ACID (test code = POCLAC) 0.7 mmol/l 0.9-1.7 L POC ARTERIAL BLOOD [id number] 12:05:00* Test Item Value Reference Range Interpretation Comme nts POC ARTERIAL BLOOD GAS PH (t est code = POCPHA) 7.364 7.35-7.45 N POC ARTERIAL BLOOD GAS PCO2 (test code = HTNERH2M) 68.3 mmHg 35.0-45 HH POC TCO2 ARTERIAL (test code = POCTCO2) 41.1 POC ARTERIAL BLOOD GAS PO2 ( test code = JGMKB6Z) 100.9 mmHg 80-100.0 H POC HCO3 ARTERIAL (test code = DMJQGG0C) 39.0 MMOL/L 22.0-26.0 HH POC BASE EXCESS (test code = POCBEA) 13.6 MMOL/L -4.0-4.0 H POC O2 SATURATION (test code = POCO2S) 97.2 % 90-100 N FIO2 (test code = FIO2A) 50 % PaO2/FiO2 (test code = [id number]) 201.80 mm/Hg ABG DELIVERY (test code = MAAME) BiPAP ABG SITE (test code = SITEA) Art Line BASIC METABOLIC [id number] 12:05:00* Test Item Value Reference Range Interpretation Comme nts SODIUM (test code = NA/ABG) 146 MEQ/L 134-147 N POTASSIUM (test code = K/ABG) 3.7 MEQ/L 3.4-5.0 N CHLORIDE (test code = CL/ABG) 98 MEQ/L 100-108 L CREATININE ABG (test code = CREAABG) 1.0 mg/dL 0.6-1.0 N POC IONIZED CALCIUM (test co de = POCCA) 1.38 MMOL/L 1.12-1.32 H POC GLUCOSE (test code = POCGLU) 194 MG/DL 70-110 H HEMOGLOBIN [id number] 12:05:00* Test Item Value Reference Range Interpretation Comme nts HEMOGLOBIN ABG (test code = HGB/ABG) 7.9 G/DL 11.0-15.0 L [id number] 12:05:00* Test Item Value Reference Range Interpretation Comme nts HEMATOCRIT (test code = HCT/ABG) 23 % 33.0-45.0 L POC LACTIC [id number] 12:05:00* Test Item Value Reference Range Interpretation Comme nts POC LACTIC ACID (test code = POCLAC) 0.6 mmol/l 0.9-1.7 L GLUCOSE [id number] 09:39:00* Test Item Value Reference Range Interpretation Comme nts GLUCOSE BEDSIDE (test code = GLUBED) 185 MG/DL 70-110 H Performed by cer tified fondant machine operator at [facility] GLUCOSE [id number] 05:54:00* Test Item Value Reference Range Interpretation Comme nts GLUCOSE BEDSIDE (test code = GLUBED) 168 MG/DL 70-110 H Performed by cer tified fondant machine operator at [facility] BASIC METABOLIC [id number] 04:24:00* Test Item Value Reference Range Interpretation Comme nts SODIUM (test code = NA) 145 mEq/L 134-147 N POTASSIUM (test code = K) 3.9 mEq/L 3.4-5.0 N CHLORIDE (test code = CL) 101 mEq/L 100-108 N CARBON DIOXIDE (test code = CO2) 38 mEq/l 21-33 H ANION GAP (test code = GAP) 10 0-20 N GLUCOSE (test code = GLU) 200 mg/dL 70-110 H BLOOD UREA NITROGEN (test code = BUN) 58 mg/dL 7-18 H GLOMERULAR FILTRATION RATE (test code = GFR) 53.6 70-80 L Units of measure = ml/min/1.73 m2 CREATININE (test code = CREAT) 1.0 mg/dL 0.6-1.3 N CALCIUM (test code = CA) 10.4 mg/dL 8.0-10.5 N [id number] 04:24:00* Test Item Value Reference Range Interpretation Comme nts PHOSPHOROUS (test code = PHOS) 2.8 MG/DL 2.5-4.9 N [id number] 04:24:00* Test Item Value Reference Range Interpretation Comme nts MAGNESIUM (test code = MAG) 2.34 mg/dL 1.80-2.40 N CBC W/AUTO [id number] 04:03:00* Test Item Value Reference Range Interpretation Comme nts WHITE BLOOD CELL (test code = WBC) 6.9 x10 3/uL 4.5-11.0 N RED BLOOD CELL (test code = RBC) 2.03 x10 6/uL 3.54-5.02 L HEMOGLOBIN (test code = HGB) 8.0 g/dL 11.0-15.0 L HEMATOCRIT (test code = HCT) 22.9 % 33.0-45.0 L MEAN CELL VOLUME (test code = MCV) 112.8 fL 81.0-99.0 H MEAN CELL HGB (test code = MCH) 39.4 pg 27.0-33.0 H MEAN CELL HGB CONCETRATION (test code = MCHC) 34.9 g/dL 33.0-37.0 N RED CELL DISTRIBUTION WIDTH CV (test code = RDW) 16.2 % 11.5-14.5 H RED CELL DISTRIBUTION WIDTH SD (test code = RDW-SD) 63.4 fL 37.0-54.0 H PLATELET COUNT (test code = PLT) 166 x10 3/uL 150-400 N MEAN PLATELET VOLUME (test c ode = MPV) 11.2 fL 7.0-9.0 H NEUTROPHIL % (test code = NT%) 77.6 % 56.0-77.0 H IMMATURE GRANULOCYTE % (test code = IG%) 4.2 % 0.0-2.0 H LYMPHOCYTE % (test code = LY%) 4.2 % 14.0-32.0 L MONOCYTE % (test code = MO%) 12.6 % 4.8-9.0 H EOSINOPHIL % (test code = EO%) 1.3 % 0.3-3.7 N BASOPHIL % (test code = BA%) 0.1 % 0.0-2.0 N NUCLEATED RBC % (test code = NRBC%) 2.6 % 0-0 H NEUTROPHIL # (test code = NT#) 5.34 x10 3/uL 2.0-7.6 N IMMATURE GRANULOCYTE # (test code = IG#) 0.29 x10 3/uL 0.00-0.03 H LYMPHOCYTE # (test code = LY#) 0.29 x10 3/uL 1.0-3.8 L MONOCYTE # (test code = MO#) 0.87 x10 3/uL 0.1-0.8 H EOSINOPHIL # (test code = EO#) 0.09 x10 3/uL 0.0-0.2 N BASOPHIL # (test code = BA#) 0.01 x10 3/uL 0.0-0.2 N NUCLEATED RBC # (test code = NRBC#) 0.18 x10 3/uL 0.0-0.1 H MANUAL DIFF REQUIRED (test c ode = MDIFF) NO POC ARTERIAL BLOOD [id number] 03:32:00* Test Item Value Reference Range Interpretation Comme nts POC ARTERIAL BLOOD GAS PH (t est code = POCPHA) 7.421 7.35-7.45 N POC ARTERIAL BLOOD GAS PCO2 (test code = IRLSXU0V) 63.7 mmHg 35.0-45 HH POC TCO2 ARTERIAL (test code = POCTCO2) 43.5 POC ARTERIAL BLOOD GAS PO2 ( test code = WKCXG6J) 89.6 mmHg 80-100.0 N POC HCO3 ARTERIAL (test code = BVCPNB8E) 41.5 MMOL/L 22.0-26.0 HH POC BASE EXCESS (test code = POCBEA) 17.0 MMOL/L -4.0-4.0 H POC O2 SATURATION (test code = POCO2S) 96.8 % 90-100 N FIO2 (test code = FIO2A) 50 % PaO2/FiO2 (test code = XBH2RHF3) 179.20 mm/Hg ABG DELIVERY (test code = MAAME) BiPAP ABG VENT RESP RATE (test cod e = RRA) 26 /MIN ABG TEMPERATURE (test code = TEMPA) 98.1 F ABG SITE (test code = SITEA) L Radial MARTIN'S TEST (test code = ALLENS) N/A BASIC METABOLIC [id number] 03:32:00* Test Item Value Reference Range Interpretation Comme nts SODIUM (test code = NA/ABG) 144 MEQ/L 134-147 N POTASSIUM (test code = K/ABG) 3.7 MEQ/L 3.4-5.0 N CHLORIDE (test code = CL/ABG) 99 MEQ/L 100-108 L CREATININE ABG (test code = CREAABG) 1.2 mg/dL 0.6-1.0 H POC IONIZED CALCIUM (test co de = POCCA) 1.31 MMOL/L 1.12-1.32 N POC GLUCOSE (test code = POCGLU) 189 MG/DL 70-110 H HEMOGLOBIN [id number] 03:32:00* Test Item Value Reference Range Interpretation Comme nts HEMOGLOBIN ABG (test code = HGB/ABG) 8.6 G/DL 11.0-15.0 L [id number] 03:32:00* Test Item Value Reference Range Interpretation Comme nts HEMATOCRIT (test code = HCT/ABG) 25 % 33.0-45.0 L POC LACTIC [id number] 03:32:00* Test Item Value Reference Range Interpretation Comme nts POC LACTIC ACID (test code = POCLAC) 0.6 mmol/l 0.9-1.7 L GLUCOSE [id number] 00:03:00* Test Item Value Reference Range Interpretation Comme nts GLUCOSE BEDSIDE (test code = GLUBED) 181 MG/DL 70-110 H Performed by cer tified fondant machine operator at [facility] - XR CHEST 1 [id number] 00:00:00 [facility] 1945 Sex: F FAX: Jeffry Pennington MD [phone] [place]: St: ADM FAX: Dong Christiansen MD [phone] FAX: Solange Sawyer MD [phone] FAX: Colt Aguillon MD [phone] Name: KIAH GILES [facility] : 1945 Age/S: 76/F [address] [place] [address] Unit #: [id number] Loc: G.[address] [place] [id number] Phys: Solange Mohamud MD Acct: [id number] Dis Date: Status: ADM IN PHONE #: [phone] Exam Date: 12/26/2021 0612 FAX #: [phone] Reason: DAILY EVAL POST OP MVR EXAMS: CPT CODE: [id number] XR CHEST 1 V [id number] PROCEDURE INFORMATION: Exam: XR Chest Exam date and time: 12/26/2021 5:19 AM Age: 76 years old Clinical indication: Other: Daily eval post op mvr TECHNIQUE: Imaging protocol: Radiologic exam of the chest. Views: 1 view. COMPARISON: CR XR CHEST 1V 12/25/2021 5:34 AM IMPRESSION: 1. The right IJ ce ntral line is unchanged. Intracardiac pacer leads are grossly unchanged. 2. There is grossly stable central pulmonary vascular congestion. 3. Allowing for differences in lung volumes, there is grossly no significant interval change in generalized right pulmonary opacification. 4. There are suspected bilateral pleural effusions. No pneumothorax is visible. at 0643 Reported and signed by: Bill Kern M.D. CC: Jeffry More MD; Dong Fuchs MD; Solange Mohamud MD; Colt Vail MD Technologist: RT Joe(R) Trnscrd Date/Time/By: 12/26/2021 (0643) : By: [email or web address] Orig Print D/T: S: 12/26/2021 (0600) PAGE 1 Signed ReportBASIC METABOLIC [id number] 20:47:00* Test Item Value Reference Range Interpretation Comme nts SODIUM (test code = NA) 145 mEq/L 134-147 N POTASSIUM (test code = K) 3.6 mEq/L 3.4-5.0 N CHLORIDE (test code = CL) 101 mEq/L 100-108 N CARBON DIOXIDE (test code = CO2) 38 mEq/l 21-33 H ANION GAP (test code = GAP) 9 0-20 N GLUCOSE (test code = GLU) 235 mg/dL 70-110 H BLOOD UREA NITROGEN (test code = BUN) 57 mg/dL 7-18 H GLOMERULAR FILTRATION RATE (test code = GFR) 53.6 70-80 L Units of measure = ml/min/1.73 m2 CREATININE (test code = CREAT) 1.0 mg/dL 0.6-1.3 N CALCIUM (test code = CA) 10.2 mg/dL 8.0-10.5 N [id number] 20:47:00* Test Item Value Reference Range Interpretation Comme nts MAGNESIUM (test code = MAG) 2.16 mg/dL 1.80-2.40 N POC ARTERIAL BLOOD [id number] 20:19:00* Test Item Value Reference Range Interpretation Comme nts POC ARTERIAL BLOOD GAS PH (t est code = POCPHA) 7.378 7.35-7.45 N POC ARTERIAL BLOOD GAS PCO2 (test code = TNIUKH2B) 64.8 mmHg 35.0-45 HH POC TCO2 ARTERIAL (test code = POCTCO2) 40.3 POC ARTERIAL BLOOD GAS PO2 ( test code = WNZUF8W) 86.4 mmHg 80-100.0 N POC HCO3 ARTERIAL (test code = NUETDW4Z) 38.3 MMOL/L 22.0-26.0 HH POC BASE EXCESS (test code = POCBEA) 13.1 MMOL/L -4.0-4.0 H POC O2 SATURATION (test code = POCO2S) 96.1 % 90-100 N ABG DELIVERY (test code = MAAME) HFNC ABG TEMPERATURE (test code = TEMPA) 97.9 F ABG SITE (test code = SITEA) Art Line BASIC METABOLIC [id number] 20:19:00* Test Item Value Reference Range Interpretation Comme nts SODIUM (test code = NA/ABG) 142 MEQ/L 134-147 N POTASSIUM (test code = K/ABG) 3.5 MEQ/L 3.4-5.0 N CHLORIDE (test code = CL/ABG) 98 MEQ/L 100-108 L CREATININE ABG (test code = CREAABG) 1.0 mg/dL 0.6-1.0 N POC IONIZED CALCIUM (test co de = POCCA) 1.32 MMOL/L 1.12-1.32 N POC GLUCOSE (test code = POCGLU) 221 MG/DL 70-110 H HEMOGLOBIN [id number] 20:19:00* Test Item Value Reference Range Interpretation Comme nts HEMOGLOBIN ABG (test code = HGB/ABG) 8.2 G/DL 11.0-15.0 L [id number] 20:19:00* Test Item Value Reference Range Interpretation Comme nts HEMATOCRIT (test code = HCT/ABG) 24 % 33.0-45.0 L POC LACTIC [id number] 20:19:00* Test Item Value Reference Range Interpretation Comme nts POC LACTIC ACID (test code = POCLAC) 0.7 mmol/l 0.9-1.7 L GLUCOSE [id number] 18:32:00* Test Item Value Reference Range Interpretation Comme nts GLUCOSE BEDSIDE (test code = GLUBED) 235 MG/DL 70-110 H Performed by cer tif[employer] fondant machine operator at [facility] BASIC METABOLIC [id number] 16:07:00* Test Item Value Reference Range Interpretation Comme nts SODIUM (test code = NA) 146 mEq/L 134-147 N POTASSIUM (test code = K) 3.8 mEq/L 3.4-5.0 N CHLORIDE (test code = CL) 100 mEq/L 100-108 N CARBON DIOXIDE (test code = CO2) 40 mEq/l 21-33 H ANION GAP (test code = GAP) 10 0-20 N GLUCOSE (test code = GLU) 153 mg/dL 70-110 H BLOOD UREA NITROGEN (test code = BUN) 60 mg/dL 7-18 H GLOMERULAR FILTRATION RATE (test code = GFR) 53.6 70-80 L Units of measure = ml/min/1.73 m2 CREATININE (test code = CREAT) 1.0 mg/dL 0.6-1.3 N CALCIUM (test code = CA) 10.6 mg/dL 8.0-10.5 H [id number] 16:07:00* Test Item Value Reference Range Interpretation Comme nts PHOSPHOROUS (test code = PHOS) 2.9 MG/DL 2.5-4.9 N [id number] 16:07:00* Test Item Value Reference Range Interpretation Comme nts MAGNESIUM (test code = MAG) 2.26 mg/dL 1.80-2.40 N GLUCOSE [id number] 15:25:00* Test Item Value Reference Range Interpretation Comme nts GLUCOSE BEDSIDE (test code = GLUBED) 149 MG/DL 70-110 H Performed by cer tified fondant machine operator at [facility] POC ARTERIAL BLOOD [id number] 15:12:00* Test Item Value Reference Range Interpretation Comme nts POC ARTERIAL BLOOD GAS PH (t est code = POCPHA) 7.364 7.35-7.45 N POC ARTERIAL BLOOD GAS PCO2 (test code = LLWAJW0F) 72.3 mmHg 35.0-45 HH POC TCO2 ARTERIAL (test code = POCTCO2) 43.4 POC ARTERIAL BLOOD GAS PO2 ( test code = OCRMZ5N) 82.1 mmHg 80-100.0 N POC HCO3 ARTERIAL (test code = XZZIIH4Y) 41.2 MMOL/L 22.0-26.0 HH POC BASE EXCESS (test code = POCBEA) 15.8 MMOL/L -4.0-4.0 H POC O2 SATURATION (test code = POCO2S) 94.9 % 90-100 N ABG DELIVERY (test code = MAAME) HFJV ABG SITE (test code = SITEA) Art Line BASIC METABOLIC [id number] 15:12:00* Test Item Value Reference Range Interpretation Comme nts SODIUM (test code = NA/ABG) 146 MEQ/L 134-147 N POTASSIUM (test code = K/ABG) 3.7 MEQ/L 3.4-5.0 N CHLORIDE (test code = CL/ABG) 97 MEQ/L 100-108 L CREATININE ABG (test code = CREAABG) 1.2 mg/dL 0.6-1.0 H POC IONIZED CALCIUM (test co de = POCCA) 1.36 MMOL/L 1.12-1.32 H POC GLUCOSE (test code = POCGLU) 161 MG/DL 70-110 H HEMOGLOBIN [id number] 15:12:00* Test Item Value Reference Range Interpretation Comme nts HEMOGLOBIN ABG (test code = HGB/ABG) 8.5 G/DL 11.0-15.0 L [id number] 15:12:00* Test Item Value Reference Range Interpretation Comme nts HEMATOCRIT (test code = HCT/ABG) 25 % 33.0-45.0 L POC LACTIC [id number] 15:12:00* Test Item Value Reference Range Interpretation Comme nts POC LACTIC ACID (test code = POCLAC) 0.7 mmol/l 0.9-1.7 L BASIC METABOLIC [id number] 12:25:00* Test Item Value Reference Range Interpretation Comme nts SODIUM (test code = NA) 146 mEq/L 134-147 N POTASSIUM (test code = K) 3.4 mEq/L 3.4-5.0 N CHLORIDE (test code = CL) 100 mEq/L 100-108 N CARBON DIOXIDE (test code = CO2) 40 mEq/l 21-33 H ANION GAP (test code = GAP) 10 0-20 N GLUCOSE (test code = GLU) 146 mg/dL 70-110 H BLOOD UREA NITROGEN (test code = BUN) 61 mg/dL 7-18 H GLOMERULAR FILTRATION RATE (test code = GFR) 60.6 70-80 L Units of measure = ml/min/1.73 m2 CREATININE (test code = CREAT) 0.9 mg/dL 0.6-1.3 N CALCIUM (test code = CA) 10.3 mg/dL 8.0-10.5 N [id number] 12:25:00* Test Item Value Reference Range Interpretation Comme nts PHOSPHOROUS (test code = PHOS) 2.8 MG/DL 2.5-4.9 [id number] 12:25:00* Test Item Value Reference Range Interpretation Comme nts MAGNESIUM (test code = MAG) 2.29 mg/dL 1.80-2.40 N POC ARTERIAL BLOOD [id number] 11:53:00* Test Item Value Reference Range Interpretation Comme nts POC ARTERIAL BLOOD GAS PH (t est code = POCPHA) 7.378 7.35-7.45 N POC ARTERIAL BLOOD GAS PCO2 (test code = FNVRCR9S) 67.2 mmHg 35.0-45 HH POC TCO2 ARTERIAL (test code = POCTCO2) 41.6 POC ARTERIAL BLOOD GAS PO2 ( test code = LCYAD6Z) 93.9 mmHg 80-100.0 N POC HCO3 ARTERIAL (test code = QEYRBV3G) 39.6 MMOL/L 22.0-26.0 HH POC BASE EXCESS (test code = POCBEA) 14.4 MMOL/L -4.0-4.0 H POC O2 SATURATION (test code = POCO2S) 96.7 % 90-100 N FIO2 (test code = FIO2A) 45 % PaO2/FiO2 (test code = DCN2KHZ4) 208.66 mm/Hg ABG DELIVERY (test code = MAAME) BiPAP ABG SITE (test code = SITEA) Art Line BASIC METABOLIC [id number] 11:53:00* Test Item Value Reference Range Interpretation Comme nts SODIUM (test code = NA/ABG) 145 MEQ/L 134-147 N POTASSIUM (test code = K/ABG) 3.2 MEQ/L 3.4-5.0 L CHLORIDE (test code = CL/ABG) 98 MEQ/L 100-108 L CREATININE ABG (test code = CREAABG) 1.1 mg/dL 0.6-1.0 H POC IONIZED CALCIUM (test co de = POCCA) 1.35 MMOL/L 1.12-1.32 H POC GLUCOSE (test code = POCGLU) 147 MG/DL 70-110 H HEMOGLOBIN [id number] 11:53:00* Test Item Value Reference Range Interpretation Comme nts HEMOGLOBIN ABG (test code = HGB/ABG) 8.2 G/DL 11.0-15.0 L [id number] 11:53:00* Test Item Value Reference Range Interpretation Comme nts HEMATOCRIT (test code = HCT/ABG) 24 % 33.0-45.0 L POC LACTIC [id number] 11:53:00* Test Item Value Reference Range Interpretation Comme nts POC LACTIC ACID (test code = POCLAC) 0.6 mmol/l 0.9-1.7 L POC ARTERIAL BLOOD [id number] 10:55:00* Test Item Value Reference Range Interpretation Comme nts POC ARTERIAL BLOOD GAS PH (t est code = POCPHA) 7.362 7.35-7.45 N POC ARTERIAL BLOOD GAS PCO2 (test code = GUTDME4A) 65.6 mmHg 35.0-45 HH POC TCO2 ARTERIAL (test code = POCTCO2) 39.2 POC ARTERIAL BLOOD GAS PO2 ( test code = OOLJU0S) 93.1 mmHg 80-100.0 N POC HCO3 ARTERIAL (test code = HTJQKL7C) 37.2 MMOL/L 22.0-26.0 HH POC BASE EXCESS (test code = POCBEA) 11.8 MMOL/L -4.0-4.0 H POC O2 SATURATION (test code = POCO2S) 96.5 % 90-100 N FIO2 (test code = FIO2A) 45 % PaO2/FiO2 (test code = VIE5ZXV8) 206.88 mm/Hg ABG DELIVERY (test code = MAAME) BiPAP ABG SITE (test code = SITEA) Art Line BASIC METABOLIC [id number] 10:55:00* Test Item Value Reference Range Interpretation Comme nts SODIUM (test code = NA/ABG) 146 MEQ/L 134-147 N POTASSIUM (test code = K/ABG) 3.3 MEQ/L 3.4-5.0 L CHLORIDE (test code = CL/ABG) 99 MEQ/L 100-108 L CREATININE ABG (test code = CREAABG) 0.9 mg/dL 0.6-1.0 N POC IONIZED CALCIUM (test co de = POCCA) 1.32 MMOL/L 1.12-1.32 N POC GLUCOSE (test code = POCGLU) 162 MG/DL 70-110 H HEMOGLOBIN [id number] 10:55:00* Test Item Value Reference Range Interpretation Comme nts HEMOGLOBIN ABG (test code = HGB/ABG) 8.2 G/DL 11.0-15.0 L [id number] 10:55:00* Test Item Value Reference Range Interpretation Comme nts HEMATOCRIT (test code = HCT/ABG) 24 % 33.0-45.0 L POC LACTIC [id number] 10:55:00* Test Item Value Reference Range Interpretation Comme nts POC LACTIC ACID (test code = POCLAC) 0.6 mmol/l 0.9-1.7 L POC ARTERIAL BLOOD [id number] 10:06:00* Test Item Value Reference Range Interpretation Comme nts POC ARTERIAL BLOOD GAS PH (t est code = POCPHA) 7.348 7.35-7.45 L POC ARTERIAL BLOOD GAS PCO2 (test code = YGAUIP2P) 71.0 mmHg 35.0-45 HH POC TCO2 ARTERIAL (test code = POCTCO2) 41.2 POC ARTERIAL BLOOD GAS PO2 ( test code = WVRHW4E) 92.3 mmHg 80-100.0 N POC HCO3 ARTERIAL (test code = GFYKEO9G) 39.0 MMOL/L 22.0-26.0 HH POC BASE EXCESS (test code = POCBEA) 13.4 MMOL/L -4.0-4.0 H POC O2 SATURATION (test code = POCO2S) 96.2 % 90-100 N FIO2 (test code = FIO2A) 75 % PaO2/FiO2 (test code = PFE0PVN5) 123.06 mm/Hg ABG DELIVERY (test code = MAAME) HFNC ABG SITE (test code = SITEA) Art Line BASIC METABOLIC [id number] 10:06:00* Test Item Value Reference Range Interpretation Comme nts SODIUM (test code = NA/ABG) 145 MEQ/L 134-147 N POTASSIUM (test code = K/ABG) 3.4 MEQ/L 3.4-5.0 N CHLORIDE (test code = CL/ABG) 99 MEQ/L 100-108 L CREATININE ABG (test code = CREAABG) 1.1 mg/dL 0.6-1.0 H POC IONIZED CALCIUM (test co de = POCCA) 1.37 MMOL/L 1.12-1.32 H POC GLUCOSE (test code = POCGLU) 192 MG/DL 70-110 H HEMOGLOBIN [id number] 10:06:00* Test Item Value Reference Range Interpretation Comme nts HEMOGLOBIN ABG (test code = HGB/ABG) 9.0 G/DL 11.0-15.0 L [id number] 10:06:00* Test Item Value Reference Range Interpretation Comme nts HEMATOCRIT (test code = HCT/ABG) 26 % 33.0-45.0 L POC LACTIC [id number] 10:06:00* Test Item Value Reference Range Interpretation Comme nts POC LACTIC ACID (test code = POCLAC) 0.7 mmol/l 0.9-1.7 L GLUCOSE [id number] 07:57:00* Test Item Value Reference Range Interpretation Comme nts GLUCOSE BEDSIDE (test code = GLUBED) 229 MG/DL 70-110 H Performed by cer tified fondant machine operator at [facility] COMPREHENSIVE METABOLIC [id number] 04:18:00* Test Item Value Reference Range Interpretation Comme nts SODIUM (test code = NA) 145 mEq/L 134-147 N POTASSIUM (test code = K) 3.6 mEq/L 3.4-5.0 N CHLORIDE (test code = CL) 102 mEq/L 100-108 N CARBON DIOXIDE (test code = CO2) 38 mEq/l 21-33 H ANION GAP (test code = GAP) 9 0-20 N GLUCOSE (test code = GLU) 218 mg/dL 70-110 H BLOOD UREA NITROGEN (test code = BUN) 62 mg/dL 7-18 H GLOMERULAR FILTRATION RATE (test code = GFR) 53.6 70-80 L Units of measure = ml/min/1.73 m2 CREATININE (test code = CREAT) 1.0 mg/dL 0.6-1.3 N TOTAL PROTEIN (test code = PROT) 6.8 g/dL 6.4-8.2 N ALBUMIN (test code = ALB) 3.90 g/dL 3.4-5.0 N CALCIUM (test code = CA) 10.2 mg/dL 8.0-10.5 N BILIRUBIN TOTAL (test code = BILT) 0.70 mg/dL 0.0-1.0 SGOT/AST (test code = AST) 17 IUnit/L 15-37 N SGPT/ALT (test code = ALT) 16 IUnit/L 30-65 L ALKALINE PHOSPHATASE TOTAL (test code = ALKP) 73 IUnit/L 20-125 N [id number] 04:18:00* Test Item Value Reference Range Interpretation Comme nts PHOSPHOROUS (test code = PHOS) 1.0 MG/DL 2.5-4.9 L [id number] 04:18:00* Test Item Value Reference Range Interpretation Comme nts MAGNESIUM (test code = MAG) 2.25 mg/dL 1.80-2.40 N CBC W/AUTO [id number] 04:04:00* Test Item Value Reference Range Interpretation Comme nts WHITE BLOOD CELL (test code = WBC) 6.5 x10 3/uL 4.5-11.0 N RED BLOOD CELL (test code = RBC) 2.29 x10 6/uL 3.54-5.02 L HEMOGLOBIN (test code = HGB) 8.1 g/dL 11.0-15.0 L HEMATOCRIT (test code = HCT) 24.8 % 33.0-45.0 L MEAN CELL VOLUME (test code = MCV) 108.3 fL 81.0-99.0 H MEAN CELL HGB (test code = MCH) 35.4 pg 27.0-33.0 H MEAN CELL HGB CONCETRATION (test code = MCHC) 32.7 g/dL 33.0-37.0 L RED CELL DISTRIBUTION WIDTH CV (test code = RDW) 15.9 % 11.5-14.5 H RED CELL DISTRIBUTION WIDTH SD (test code = RDW-SD) 63.7 fL 37.0-54.0 H PLATELET COUNT (test code = PLT) 146 x10 3/uL 150-400 L MEAN PLATELET VOLUME (test c ode = MPV) 11.3 fL 7.0-9.0 H NEUTROPHIL % (test code = NT%) 77.4 % 56.0-77.0 H IMMATURE GRANULOCYTE % (test code = IG%) 2.2 % 0.0-2.0 H LYMPHOCYTE % (test code = LY%) 4.6 % 14.0-32.0 L MONOCYTE % (test code = MO%) 13.8 % 4.8-9.0 H EOSINOPHIL % (test code = EO%) 1.7 % 0.3-3.7 N BASOPHIL % (test code = BA%) 0.3 % 0.0-2.0 N NUCLEATED RBC % (test code = NRBC%) 2.2 % 0-0 H NEUTROPHIL # (test code = NT#) 5.04 x10 3/uL 2.0-7.6 N IMMATURE GRANULOCYTE # (test code = IG#) 0.14 x10 3/uL 0.00-0.03 H LYMPHOCYTE # (test code = LY#) 0.30 x10 3/uL 1.0-3.8 L MONOCYTE # (test code = MO#) 0.90 x10 3/uL 0.1-0.8 H EOSINOPHIL # (test code = EO#) 0.11 x10 3/uL 0.0-0.2 N BASOPHIL # (test code = BA#) 0.02 x10 3/uL 0.0-0.2 N NUCLEATED RBC # (test code = NRBC#) 0.14 x10 3/uL 0.0-0.1 H MANUAL DIFF REQUIRED (test c ode = MDIFF) NO POC ARTERIAL BLOOD [id number] 03:55:00* Test Item Value Reference Range Interpretation Comme nts POC ARTERIAL BLOOD GAS PH (t est code = POCPHA) 7.393 7.35-7.45 N POC ARTERIAL BLOOD GAS PCO2 (test code = WWYYKA8C) 67.7 mmHg 35.0-45 HH POC TCO2 ARTERIAL (test code = POCTCO2) 43.5 POC ARTERIAL BLOOD GAS PO2 ( test code = SJLTS8H) 73.0 mmHg 80-100.0 L POC HCO3 ARTERIAL (test code = KMDFAJ8I) 41.4 MMOL/L 22.0-26.0 HH POC BASE EXCESS (test code = POCBEA) 16.4 MMOL/L -4.0-4.0 H POC O2 SATURATION (test code = POCO2S) 93.8 % 90-100 N FIO2 (test code = FIO2A) 75 % PaO2/FiO2 (test code = [id number]) 97.33 mm/Hg ABG DELIVERY (test code = MAAME) HFNC ABG TEMPERATURE (test code = TEMPA) 98 F ABG SITE (test code = SITEA) Art Line MARTIN'S TEST (test code = ALLENS) N/A BASIC METABOLIC [id number] 03:55:00* Test Item Value Reference Range Interpretation Comme nts SODIUM (test code = NA/ABG) 145 MEQ/L 134-147 N POTASSIUM (test code = K/ABG) 3.5 MEQ/L 3.4-5.0 N CHLORIDE (test code = CL/ABG) 97 MEQ/L 100-108 L CREATININE ABG (test code = CREAABG) 1.2 mg/dL 0.6-1.0 H POC IONIZED CALCIUM (test co de = POCCA) 1.38 MMOL/L 1.12-1.32 H POC GLUCOSE (test code = POCGLU) 236 MG/DL 70-110 H HEMOGLOBIN [id number] 03:55:00* Test Item Value Reference Range Interpretation Comme nts HEMOGLOBIN ABG (test code = HGB/ABG) 8.5 G/DL 11.0-15.0 L [id number] 03:55:00* Test Item Value Reference Range Interpretation Comme nts HEMATOCRIT (test code = HCT/ABG) 25 % 33.0-45.0 L POC LACTIC [id number] 03:55:00* Test Item Value Reference Range Interpretation Comme nts POC LACTIC ACID (test code = POCLAC) 0.6 mmol/l 0.9-1.7 L GLUCOSE [id number] 02:46:00* Test Item Value Reference Range Interpretation Comme nts GLUCOSE BEDSIDE (test code = GLUBED) 209 MG/DL 70-110 H Performed by cer [employer]RONet fondant machine operator at [facility] GLUCOSE [id number] 00:20:00* Test Item Value Reference Range Interpretation Comme nts GLUCOSE BEDSIDE (test code = GLUBED) 127 MG/DL 70-110 H Performed by cer [employer]RON[employer] fondant machine operator at [facility] - XR CHEST 1 [id number] 00:00:00 [facility] 1945 Sex: F FAX: Jeffry Pennington MD [phone] [place]: St: ADM FAX: Dong Christiansen MD [phone] FAX: René Bright [phone] FAX: Colt Aguillon MD [phone] Name: KIAH GILES [facility] : 1945 Age/S: 76/F [address] [place] [address] Unit #: [id number] Loc: G.2205 [place] [address] Phys: René Romero MD Acct: [id number] Dis Date: Status: ADM IN PHONE #: [phone] Exam Date: 12/13 0701 FAX #: [phone] Reason: Cardiac Surgery Post Op EXAMS: CPT CODE: [id number] XR CHEST1 V [id number] PROCEDURE INFORMATION: Exam: XR Chest Exam date [...] size is stable. 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 Prosthetic cardiac valve. Bones/joints: Stable. IMPRESSION: No significant change. at 0755 Reported and signed by: Hardik Montanez M.D. CC: Jeffry More MD; Dong Fuchs MD; René Romero MD; Colt Vail MD Technologist: RT Caroline(Marla) Trnscrd Date/Time/By: 12/25/2021(0755) : By: [email or web address] Orig Print D/T: S: 12/25/2021 (0755) PAGE 1 Signed ReportGLUCOSE [id number] 22:24:00* Test Item Value Reference Range Interpretation Comme nts GLUCOSE BEDSIDE (test code = GLUBED) 74 MG/DL 70-110 N Performed by anna gibbons at [facility] BASIC METABOLIC [id number] 21:02:00* Test Item Value Reference Range Interpretation Comme nts SODIUM (test code = NA) 147 mEq/L 134-147 N POTASSIUM (test code = K) 3.5 mEq/L 3.4-5.0 N CHLORIDE (test code = CL) 106 mEq/L 100-108 N CARBON DIOXIDE (test code = CO2) 37 mEq/l 21-33 H ANION GAP (test code = GAP) 7 0-20 N GLUCOSE (test code = GLU) 117 mg/dL 70-110 H BLOOD UREA NITROGEN (test code = BUN) 57 mg/dL 7-18 H GLOMERULAR FILTRATION RATE (test code = GFR) 60.6 70-80 L Units of measure = ml/min/1.73 m2 CREATININE (test code = CREAT) 0.9 mg/dL 0.6-1.3 N CALCIUM (test code = CA) 9.9 mg/dL 8.0-10.5 N POC ARTERIAL BLOOD [id number] 20:05:00* Test Item Value Reference Range Interpretation Comme nts POC ARTERIAL BLOOD GAS PH (t est code = POCPHA) 7.358 7.35-7.45 N POC ARTERIAL BLOOD GAS PCO2 (test code = GYGTWT5E) 61.0 mmHg 35.0-45 HH POC TCO2 ARTERIAL (test code = POCTCO2) 36.3 POC ARTERIAL BLOOD GAS PO2 ( test code = THKUL0H) 89.1 mmHg 80-100.0 N POC HCO3 ARTERIAL (test code = FHAWHK2Z) 34.4 MMOL/L 22.0-26.0 HH POC BASE EXCESS (test code = POCBEA) 8.9 MMOL/L -4.0-4.0 H POC O2 SATURATION (test code = POCO2S) 96.2 % 90-100 N FIO2 (test code = FIO2A) 50 % PaO2/FiO2 (test code = QUS2DWB3) 178.20 mm/Hg ABG DELIVERY (test code = MAAME) BiPAP ABG VENT MODE (test code = MODEA) BiLevel ABG VENT RESP RATE (test cod e = RRA) 26 /MIN ABG PEEP (test code = PEEPA) 10 cmH2O ABG PRESSURE SUPPORT (test c ode = PSABG) 18 cmH2O ABG TEMPERATURE (test code = TEMPA) 98.1 F ABG SITE (test code = SITEA) Art Line MARTIN'S TEST (test code = ALLENS) Positive BASIC METABOLIC [id number] 20:05:00* Test Item Value Reference Range Interpretation Comme nts SODIUM (test code = NA/ABG) 150 MEQ/L 134-147 H POTASSIUM (test code = K/ABG) 2.9 MEQ/L 3.4-5.0 L CHLORIDE (test code = CL/ABG) 108 MEQ/L 100-108 N CREATININE ABG (test code = CREAABG) 0.8 mg/dL 0.6-1.0 POC IONIZED CALCIUM (test co de = POCCA) 1.29 MMOL/L 1.12-1.32 N POC GLUCOSE (test code = POCGLU) 110 MG/DL 70-110 N HEMOGLOBIN [id number] 20:05:00* Test Item Value Reference Range Interpretation Comme nts HEMOGLOBIN ABG (test code = HGB/ABG) 7.2 G/DL 11.0-15.0 L [id number] 20:05:00* Test Item Value Reference Range Interpretation Comme nts HEMATOCRIT (test code = HCT/ABG) 21 % 33.0-45.0 L POC LACTIC [id number] 20:05:00* Test Item Value Reference Range Interpretation Comme nts POC LACTIC ACID (test code = POCLAC) 0.6 mmol/l 0.9-1.7 L GLUCOSE [id number] 18:28:00* Test Item Value Reference Range Interpretation Comme nts GLUCOSE BEDSIDE (test code = GLUBED) 139 MG/DL 70-110 H Performed by cer tified fondant machine operator at [facility] POC ARTERIAL BLOOD [id number] 18:12:00* Test Item Value Reference Range Interpretation Comme nts POC ARTERIAL BLOOD GAS PH (t est code = POCPHA) 7.381 7.35-7.45 N POC ARTERIAL BLOOD GAS PCO2 (test code = CZNXER9P) 64.5 mmHg 35.0-45 HH POC TCO2 ARTERIAL (test code = POCTCO2) 40.3 POC ARTERIAL BLOOD GAS PO2 ( test code = PFENZ9U) 81.9 mmHg 80-100.0 N POC HCO3 ARTERIAL (test code = SZNYQO6B) 38.3 MMOL/L 22.0-26.0 HH POC BASE EXCESS (test code = POCBEA) 13.1 MMOL/L -4.0-4.0 H POC O2 SATURATION (test code = POCO2S) 95.5 % 90-100 N FIO2 (test code = FIO2A) 50 % PaO2/FiO2 (test code = YNW3LGZ9) 163.80 mm/Hg ABG DELIVERY (test code = MAAME) BiPAP ABG VENT RESP RATE (test cod e = RRA) 18 /MIN ABG PEEP (test code = PEEPA) 10 cmH2O ABG TEMPERATURE (test code = TEMPA) 97.9 F ABG SITE (test code = SITEA) Art Line MARTIN'S TEST (test code = ALLENS) N/A BASIC METABOLIC [id number] 18:12:00* Test Item Value Reference Range Interpretation Comme nts SODIUM (test code = NA/ABG) 149 MEQ/L 134-147 H POTASSIUM (test code = K/ABG) 3.4 MEQ/L 3.4-5.0 N CHLORIDE (test code = CL/ABG) 102 MEQ/L 100-108 N CREATININE ABG (test code = CREAABG) 1.2 mg/dL 0.6-1.0 H POC IONIZED CALCIUM (test co de = POCCA) 1.41 MMOL/L 1.12-1.32 H POC GLUCOSE (test code = POCGLU) 150 MG/DL 70-110 H HEMOGLOBIN [id number] 18:12:00* Test Item Value Reference Range Interpretation Comme nts HEMOGLOBIN ABG (test code = HGB/ABG) 8.6 G/DL 11.0-15.0 L [id number] 18:12:00* Test Item Value Reference Range Interpretation Comme nts HEMATOCRIT (test code = HCT/ABG) 25 % 33.0-45.0 L POC LACTIC [id number] 18:12:00* Test Item Value Reference Range Interpretation Comme nts POC LACTIC ACID (test code = POCLAC) 0.7 mmol/l 0.9-1.7 L GLUCOSE [id number] 17:05:00* Test Item Value Reference Range Interpretation Comme nts GLUCOSE BEDSIDE (test code = GLUBED) 170 MG/DL 70-110 H Performed by cer tified fondant machine operator at [facility] BASIC METABOLIC [id number] 14:48:00* Test Item Value Reference Range Interpretation Comme nts SODIUM (test code = NA) 145 mEq/L 134-147 N POTASSIUM (test code = K) 3.8 mEq/L 3.4-5.0 N CHLORIDE (test code = CL) 102 mEq/L 100-108 N CARBON DIOXIDE (test code = CO2) 37 mEq/l 21-33 H ANION GAP (test code = GAP) 10 0-20 N GLUCOSE (test code = GLU) 246 mg/dL 70-110 H BLOOD UREA NITROGEN (test code = BUN) 64 mg/dL 7-18 H GLOMERULAR FILTRATION RATE (test code = GFR) 48.0 70-80 L Units of measure = ml/min/1.73 m2 CREATININE (test code = CREAT) 1.1 mg/dL 0.6-1.3 N CALCIUM (test code = CA) 10.4 mg/dL 8.0-10.5 N [id number] 14:48:00* Test Item Value Reference Range Interpretation Comme nts MAGNESIUM (test code = MAG) 2.40 mg/dL 1.80-2.40 N GLUCOSE [id number] 14:41:00* Test Item Value Reference Range Interpretation Comme nts GLUCOSE BEDSIDE (test code = GLUBED) 233 MG/DL 70-110 H Performed by cer tified fondant machine operator at [facility] POC ARTERIAL BLOOD [id number] 14:21:00* Test Item Value Reference Range Interpretation Comme nts POC ARTERIAL BLOOD GAS PH (t est code = POCPHA) 7.346 7.35-7.45 L POC ARTERIAL BLOOD GAS PCO2 (test code = CTFKRB2U) 63.5 mmHg 35.0-45 HH POC TCO2 ARTERIAL (test code = POCTCO2) 36.8 POC ARTERIAL BLOOD GAS PO2 ( test code = UQXGZ1Y) 74.6 mmHg 80-100.0 L POC HCO3 ARTERIAL (test code = EANRII9E) 34.8 MMOL/L 22.0-26.0 HH POC BASE EXCESS (test code = POCBEA) 9.1 MMOL/L -4.0-4.0 H POC O2 SATURATION (test code = POCO2S) 93.5 % 90-100 N FIO2 (test code = FIO2A) 50 % PaO2/FiO2 (test code = WGV6USF9) 149.20 mm/Hg ABG DELIVERY (test code = MAAME) BiPAP ABG TIDAL VOLUME (test code = TVA) 18 ml ABG PEEP (test code = PEEPA) 10 cmH2O ABG TEMPERATURE (test code = TEMPA) 98.2 F ABG SITE (test code = SITEA) Art Line MARTIN'S TEST (test code = ALLENS) N/A BASIC METABOLIC [id number] 14:21:00* Test Item Value Reference Range Interpretation Comme nts SODIUM (test code = NA/ABG) 145 MEQ/L 134-147 N POTASSIUM (test code = K/ABG) 3.7 MEQ/L 3.4-5.0 N CHLORIDE (test code = CL/ABG) 100 MEQ/L 100-108 N CREATININE ABG (test code = CREAABG) 1.1 mg/dL 0.6-1.0 H POC IONIZED CALCIUM (test co de = POCCA) 1.34 MMOL/L 1.12-1.32 H POC GLUCOSE (test code = POCGLU) 237 MG/DL 70-110 H HEMOGLOBIN [id number] 14:21:00* Test Item Value Reference Range Interpretation Comme nts HEMOGLOBIN ABG (test code = HGB/ABG) 8.1 G/DL 11.0-15.0 L [id number] 14:21:00* Test Item Value Reference Range Interpretation Comme nts HEMATOCRIT (test code = HCT/ABG) 24 % 33.0-45.0 L POC LACTIC [id number] 14:21:00* Test Item Value Reference Range Interpretation Comme nts POC LACTIC ACID (test code = POCLAC) 1.2 mmol/l 0.9-1.7 N POC ARTERIAL BLOOD [id number] 11:49:00* Test Item Value Reference Range Interpretation Comme nts POC ARTERIAL BLOOD GAS PH (t est code = POCPHA) 7.348 7.35-7.45 L POC ARTERIAL BLOOD GAS PCO2 (test code = VYEVGT7O) 69.3 mmHg 35.0-45 HH POC TCO2 ARTERIAL (test code = POCTCO2) 40.0 POC ARTERIAL BLOOD GAS PO2 ( test code = AIYVH6D) 91.0 mmHg 80-100.0 N POC HCO3 ARTERIAL (test code = TFTBLO7O) 37.9 MMOL/L 22.0-26.0 HH POC BASE EXCESS (test code = POCBEA) 12.3 MMOL/L -4.0-4.0 H POC O2 SATURATION (test code = POCO2S) 96.0 % 90-100 N FIO2 (test code = FIO2A) 60 % PaO2/FiO2 (test code = ACE4BLR8) 151.66 mm/Hg ABG DELIVERY (test code = MAAME) BiPAP ABG PEEP (test code = PEEPA) 8 cmH2O ABG PRESSURE SUPPORT (test c ode = PSABG) 14 cmH2O ABG TEMPERATURE (test code = TEMPA) 99 F ABG SITE (test code = SITEA) Art Line BASIC METABOLIC [id number] 11:49:00* Test Item Value Reference Range Interpretation Comme nts SODIUM (test code = NA/ABG) 149 MEQ/L 134-147 H POTASSIUM (test code = K/ABG) 3.1 MEQ/L 3.4-5.0 L CHLORIDE (test code = CL/ABG) 102 MEQ/L 100-108 N CREATININE ABG (test code = CREAABG) 1.0 mg/dL 0.6-1.0 N POC IONIZED CALCIUM (test co de = POCCA) 1.39 MMOL/L 1.12-1.32 H POC GLUCOSE (test code = POCGLU) 185 MG/DL 70-110 H HEMOGLOBIN [id number] 11:49:00* Test Item Value Reference Range Interpretation Comme nts HEMOGLOBIN ABG (test code = HGB/ABG) 8.7 G/DL 11.0-15.0 L [id number] 11:49:00* Test Item Value Reference Range Interpretation Comme nts HEMATOCRIT (test code = HCT/ABG) 26 % 33.0-45.0 L POC LACTIC [id number] 11:49:00* Test Item Value Reference Range Interpretation Comme nts POC LACTIC ACID (test code = POCLAC) 0.7 mmol/l 0.9-1.7 L GLUCOSE [id number] 09:32:00* Test Item Value Reference Range Interpretation Comme nts GLUCOSE BEDSIDE (test code = GLUBED) 143 MG/DL 70-110 H Performed by cer arlene fondant machine operator at [facility] POC ARTERIAL BLOOD [id number] 09:21:00* Test Item Value Reference Range Interpretation Comme nts POC ARTERIAL BLOOD GAS PH (t est code = POCPHA) 7.376 7.35-7.45 N POC ARTERIAL BLOOD GAS PCO2 (test code = MPUTTB4S) 65.5 mmHg 35.0-45 HH POC TCO2 ARTERIAL (test code = POCTCO2) 40.5 POC ARTERIAL BLOOD GAS PO2 ( test code = NSIOR6M) 84.5 mmHg 80-100.0 N POC HCO3 ARTERIAL (test code = JDBXSQ5U) 38.5 MMOL/L 22.0-26.0 HH POC BASE EXCESS (test code = POCBEA) 13.2 MMOL/L -4.0-4.0 H POC O2 SATURATION (test code = POCO2S) 95.7 % 90-100 N FIO2 (test code = FIO2A) 70 % PaO2/FiO2 (test code = NZU0VIO7) 120.71 mm/Hg ABG DELIVERY (test code = MAAME) BiPAP ABG TIDAL VOLUME (test code = TVA) 14 ml ABG PEEP (test code = PEEPA) 8 cmH2O ABG TEMPERATURE (test code = TEMPA) 98.1 F ABG SITE (test code = SITEA) Art Line MARTIN'S TEST (test code = ALLENS) N/A BASIC METABOLIC [id number] 09:21:00* Test Item Value Reference Range Interpretation Comme nts SODIUM (test code = NA/ABG) 149 MEQ/L 134-147 H POTASSIUM (test code = K/ABG) 3.2 MEQ/L 3.4-5.0 L CHLORIDE (test code = CL/ABG) 102 MEQ/L 100-108 N CREATININE ABG (test code = CREAABG) 1.2 mg/dL 0.6-1.0 H POC IONIZED CALCIUM (test co de = POCCA) 1.38 MMOL/L 1.12-1.32 H POC GLUCOSE (test code = POCGLU) 157 MG/DL 70-110 H HEMOGLOBIN [id number] 09:21:00* Test Item Value Reference Range Interpretation Comme nts HEMOGLOBIN ABG (test code = HGB/ABG) 8.9 G/DL 11.0-15.0 L [id number] 09:21:00* Test Item Value Reference Range Interpretation Comme nts HEMATOCRIT (test code = HCT/ABG) 26 % 33.0-45.0 L POC LACTIC [id number] 09:21:00* Test Item Value Reference Range Interpretation Comme nts POC LACTIC ACID (test code = POCLAC) 0.7 mmol/l 0.9-1.7 L GLUCOSE [id number] 07:04:00* Test Item Value Reference Range Interpretation Comme nts GLUCOSE BEDSIDE (test code = GLUBED) 142 MG/DL 70-110 H Performed by cer tified fondant machine operator at [facility] POC ARTERIAL BLOOD [id number] 05:37:00* Test Item Value Reference Range Interpretation Comme nts POC ARTERIAL BLOOD GAS PH (t est code = POCPHA) 7.363 7.35-7.45 N POC ARTERIAL BLOOD GAS PCO2 (test code = OYNNPA4U) 64.5 mmHg 35.0-45 HH POC TCO2 ARTERIAL (test code = POCTCO2) 38.7 POC ARTERIAL BLOOD GAS PO2 ( test code = BLGMQ9I) 60.3 mmHg 80-100.0 L POC HCO3 ARTERIAL (test code = JHHPAQ4X) 36.8 MMOL/L 22.0-26.0 HH POC BASE EXCESS (test code = POCBEA) 11.4 MMOL/L -4.0-4.0 H POC O2 SATURATION (test code = POCO2S) 88.7 % 90-100 L FIO2 (test code = FIO2A) 80 % PaO2/FiO2 (test code = NKY2FSD2) 75.37 mm/Hg ABG DELIVERY (test code = MAMAE) HFNC ABG TEMPERATURE (test code = TEMPA) 98.6 F ABG SITE (test code = SITEA) R Radial MARTIN'S TEST (test code = ALLENS) Positive BASIC METABOLIC [id number] 05:37:00* Test Item Value Reference Range Interpretation Comme nts SODIUM (test code = NA/ABG) 146 MEQ/L 134-147 N POTASSIUM (test code = K/ABG) 3.1 MEQ/L 3.4-5.0 L CHLORIDE (test code = CL/ABG) 102 MEQ/L 100-108 N CREATININE ABG (test code = CREAABG) 1.0 mg/dL 0.6-1.0 N POC IONIZED CALCIUM (test co de = POCCA) 1.34 MMOL/L 1.12-1.32 H POC GLUCOSE (test code = POCGLU) 170 MG/DL 70-110 H HEMOGLOBIN [id number] 05:37:00* Test Item Value Reference Range Interpretation Comme nts HEMOGLOBIN ABG (test code = HGB/ABG) 8.3 G/DL 11.0-15.0 L [id number] 05:37:00* Test Item Value Reference Range Interpretation Comme nts HEMATOCRIT (test code = HCT/ABG) 24 % 33.0-45.0 L POC LACTIC [id number] 05:37:00* Test Item Value Reference Range Interpretation Comme nts POC LACTIC ACID (test code = POCLAC) 0.8 mmol/l 0.9-1.7 L BASIC METABOLIC [id number] 03:53:00* Test Item Value Reference Range Interpretation Comme nts SODIUM (test code = NA) 148 mEq/L 134-147 H POTASSIUM (test code = K) 3.2 mEq/L 3.4-5.0 L CHLORIDE (test code = CL) 103 mEq/L 100-108 N CARBON DIOXIDE (test code = CO2) 39 mEq/l 21-33 H ANION GAP (test code = GAP) 9 0-20 N GLUCOSE (test code = GLU) 154 mg/dL 70-110 H BLOOD UREA NITROGEN (test code = BUN) 60 mg/dL 7-18 H GLOMERULAR FILTRATION RATE (test code = GFR) 53.6 70-80 L Units of measure = ml/min/1.73 m2 CREATININE (test code = CREAT) 1.0 mg/dL 0.6-1.3 N CALCIUM (test code = CA) 10.8 mg/dL 8.0-10.5 H [id number] 03:53:00* Test Item Value Reference Range Interpretation Comme nts MAGNESIUM (test code = MAG) 2.31 mg/dL 1.80-2.40 N CBC W/AUTO [id number] 03:35:00* Test Item Value Reference Range Interpretation Comme nts WHITE BLOOD CELL (test code = WBC) 6.3 x10 3/uL 4.5-11.0 N RED BLOOD CELL (test code = RBC) 2.12 x10 6/uL 3.54-5.02 L HEMOGLOBIN (test code = HGB) 7.8 g/dL 11.0-15.0 L HEMATOCRIT (test code = HCT) 23.7 % 33.0-45.0 L MEAN CELL VOLUME (test code = MCV) 111.8 fL 81.0-99.0 H MEAN CELL HGB (test code = MCH) 36.8 pg 27.0-33.0 H MEAN CELL HGB CONCETRATION (test code = MCHC) 32.9 g/dL 33.0-37.0 L RED CELL DISTRIBUTION WIDTH CV (test code = RDW) 15.7 % 11.5-14.5 H RED CELL DISTRIBUTION WIDTH SD (test code = RDW-SD) 62.8 fL 37.0-54.0 H PLATELET COUNT (test code = PLT) 121 x10 3/uL 150-400 L MEAN PLATELET VOLUME (test c ode = MPV) 11.1 fL 7.0-9.0 H NEUTROPHIL % (test code = NT%) 82.8 % 56.0-77.0 H IMMATURE GRANULOCYTE % (test code = IG%) 1.9 % 0.0-2.0 N LYMPHOCYTE % (test code = LY%) 2.7 % 14.0-32.0 L MONOCYTE % (test code = MO%) 11.4 % 4.8-9.0 H EOSINOPHIL % (test code = EO%) 1.0 % 0.3-3.7 N BASOPHIL % (test code = BA%) 0.2 % 0.0-2.0 N NUCLEATED RBC % (test code = NRBC%) 2.7 % 0-0 H NEUTROPHIL # (test code = NT#) 5.21 x10 3/uL 2.0-7.6 N IMMATURE GRANULOCYTE # (test code = IG#) 0.12 x10 3/uL 0.00-0.03 H LYMPHOCYTE # (test code = LY#) 0.17 x10 3/uL 1.0-3.8 L MONOCYTE # (test code = MO#) 0.72 x10 3/uL 0.1-0.8 N EOSINOPHIL # (test code = EO#) 0.06 x10 3/uL 0.0-0.2 N BASOPHIL # (test code = BA#) 0.01 x10 3/uL 0.0-0.2 N NUCLEATED RBC # (test code = NRBC#) 0.17 x10 3/uL 0.0-0.1 H MANUAL DIFF REQUIRED (test c ode = MDIFF) NO - XR CHEST 1 [id number] 00:00:00 [facility] : 1945 Sex: F FAX: Jeffry Pennington MD [phone] [place]: St: ADM FAX: Dong Christiansen MD [phone] FAX: René Blancas [phone] FAX: Colt Aguillon MD [phone] Name: KIAH GILES [facility] : 1945 Age/S: 76/F [address] [place] [address] Unit #: [id number] Loc: [address] [address] Phys: René Romero MD Acct: [id number] Dis Date: Status: ADM IN PHONE #: [phone] Exam Date: 12/24/2021 06 FAX #: [phone] Reason: Cardiac Surgery Post Op EXAMS: CPT CODE: [id number] XR CHEST 1 V [id number] PROCEDURE INFORMATION: Exam: XR Chest Exam date and time: 12/24/2021 4:53 AM Age: 76 yearsold Clinical indication: Other: Cardiac surgery post op TECHNIQUE: Imaging protocol: Radiologic exam of the chest. Views: 1 view. COMPARISON: CR XR CHEST 1V 12/23/2021 5:07 AM FINDINGS: Tubes, catheters and devices: Right IJ sheath in place. EKG leads overlie the chest. Pacemaker/ICD leads are stable. Mitral valve prosthesis is stable. Lungs: Ill-defined opacities bilateral with central lung zonepredominance. Retrocardiac opacification obscuring the hemidiaphragm is unchanged. The right hemidiaphragm is partially obscured. Pleural spaces: There is no pneumothorax. Bilateral pleural effusionswith larger layering component on the right grossly stable. Small volume of fluid tracking into theminor fissure. Heart/Mediastinum: Moderate prominence of the cardiomediastinal silhouette is stableallowing for differences in patient projection/rotation. The pulmonary vasculature is ill-defined.Bones/joints: Sternotomy wires are intact. IMPRESSION: 1. Stable postoperative chest. 2. Bilateral pulmonary opacities with central lung zone predominance compatible with edema. Inflammation in the differential. Retrocardiac atelectasis versus consolidation. 3. Right greater than left pleural effusions. at 0926 Reported and signed by: Jasmeet Carlisle M.D. CC: Jeffry More MD; Dong Fuchs MD; René oRmero MD; Colt Vail MD Technologist: RT Joe(R) Trnscrd Date/Time/By: 12/24/2021 (925) : By: AureliaKWL Orig Print D/T: S: 12/24/2021 (925) PAGE 1 Signed ReportGLUCOSE [id number] 22:47:00* Test Item Value Reference Range Interpretation Comme nts GLUCOSE BEDSIDE (test code = GLUBED) 162 MG/DL 70-110 H Performed by cer arlene gibbons at [facility] BASIC METABOLIC [id number] 21:26:00* Test Item Value Reference Range Interpretation Comme nts SODIUM (test code = NA/ABG) 147 MEQ/L 134-147 N POTASSIUM (test code = K/ABG) 3.2 MEQ/L 3.4-5.0 L CHLORIDE (test code = CL/ABG) 101 MEQ/L 100-108 N CREATININE ABG (test code = CREAABG) 1.2 mg/dL 0.6-1.0 H POC IONIZED CALCIUM (test co de = POCCA) 1.38 MMOL/L 1.12-1.32 H POC GLUCOSE (test code = POCGLU) 176 MG/DL 70-110 H HEMOGLOBIN [id number] 21:26:00* Test Item Value Reference Range Interpretation Comme nts HEMOGLOBIN ABG (test code = HGB/ABG) 8.8 G/DL 11.0-15.0 L [id number] 21:26:00* Test Item Value Reference Range Interpretation Comme nts HEMATOCRIT (test code = HCT/ABG) 26 % 33.0-45.0 L POC LACTIC [id number] 21:26:00* Test Item Value Reference Range Interpretation Comme nts POC LACTIC ACID (test code = POCLAC) 0.8 mmol/l 0.9-1.7 L POC VENOUS BLOOD [id number] 21:26:00* Test Item Value Reference Range Interpretation Comme nts POC VENOUS BLOOD GAS PH (ny t code = POCPHV) 7.346 7.33-7.45 N POC VENOUS BLOOD GAS PCO2 (t est code = QODSPG9V) 70.7 mmHg 43-47 HH POC VENOUS BLOOD GAS PO2 (te st code = VDVHQ3D) 39.7 mmHG 10-50 N POC TCO2 VENOUS (test code = CAKSIB5P) 40.8 POC HCO3 VENOUS (test code = STTZSP5Q) 38.6 MMOL/L 22-27 H POC BASE EXCESS VENOUS (test code = POCBEV) 13.0 MMOL/L -4.0-4.0 H POC O2 SATURATION VENOUS (te st code = HWMH0CL) 68.8 % 60-80 N VENOUS BLOOD GAS FIO2 (test code = FIO2V) 70 % VENOUS BLOOD GAS DELIVERY (t est code = DELV) HFNC VENOUS BLOOD GAS TEMP (test code = TEMPV) 98.6 F VENOUS BLOOD GAS SITE (test code = SITEV) Central Line GLUCOSE [id number] 18:46:00* Test Item Value Reference Range Interpretation Comme nts GLUCOSE BEDSIDE (test code = GLUBED) 163 MG/DL 70-110 H Performed by cer tified fondant machine operator at [facility] BASIC METABOLIC [id number] 18:17:00* Test Item Value Reference Range Interpretation Comme nts SODIUM (test code = NA/ABG) 147 MEQ/L 134-147 N POTASSIUM (test code = K/ABG) 3.5 MEQ/L 3.4-5.0 N CHLORIDE (test code = CL/ABG) 102 MEQ/L 100-108 N CREATININE ABG (test code = CREAABG) 1.3 mg/dL 0.6-1.0 H POC IONIZED CALCIUM (test co de = POCCA) 1.42 MMOL/L 1.12-1.32 H POC GLUCOSE (test code = POCGLU) 186 MG/DL 70-110 H HEMOGLOBIN [id number] 18:17:00* Test Item Value Reference Range Interpretation Comme nts HEMOGLOBIN ABG (test code = HGB/ABG) 8.8 G/DL 11.0-15.0 L [id number] 18:17:00* Test Item Value Reference Range Interpretation Comme nts HEMATOCRIT (test code = HCT/ABG) 26 % 33.0-45.0 L POC LACTIC [id number] 18:17:00* Test Item Value Reference Range Interpretation Comme nts POC LACTIC ACID (test code = POCLAC) 0.7 mmol/l 0.9-1.7 L POC VENOUS BLOOD [id number] 18:17:00* Test Item Value Reference Range Interpretation Comme nts MARTIN'S TEST (test code = ALLENS) N/A POC VENOUS BLOOD GAS PH (ny t code = POCPHV) 7.308 7.33-7.45 L POC VENOUS BLOOD GAS PCO2 (t est code = CALAAK5E) 75.8 mmHg 43-47 HH POC VENOUS BLOOD GAS PO2 (te st code = BMOKE5A) 37.3 mmHG 10-50 N POC TCO2 VENOUS (test code = PEVOQX8B) 40.5 POC HCO3 VENOUS (test code = RKUSMT9G) 38.1 MMOL/L 22-27 H POC BASE EXCESS VENOUS (test code = POCBEV) 11.8 MMOL/L -4.0-4.0 H POC O2 SATURATION VENOUS (te st code = YUSZ8IB) 63.8 % 60-80 N VENOUS BLOOD GAS FIO2 (test code = FIO2V) 70 % VENOUS BLOOD GAS DELIVERY (t est code = DELV) HFNC VBG TIDAL VOLUME (test code = TVV) 60 ml VENOUS BLOOD GAS TEMP (test code = TEMPV) 97.9 F VENOUS BLOOD GAS SITE (test code = SITEV) Central Line GLUCOSE [id number] 17:37:00* Test Item Value Reference Range Interpretation Comme nts GLUCOSE BEDSIDE (test code = GLUBED) 150 MG/DL 70-110 H Performed by cer tified fondant machine operator at [facility] BASIC METABOLIC [id number] 15:37:00* Test Item Value Reference Range Interpretation Comme nts SODIUM (test code = NA) 145 mEq/L 134-147 N POTASSIUM (test code = K) 4.7 mEq/L 3.4-5.0 CHLORIDE (test code = CL) 104 mEq/L 100-108 N CARBON DIOXIDE (test code = CO2) 35 mEq/l 21-33 H ANION GAP (test code = GAP) 11 0-20 N GLUCOSE (test code = GLU) 235 mg/dL 70-110 H BLOOD UREA NITROGEN (test code = BUN) 58 mg/dL 7-18 H GLOMERULAR FILTRATION RATE (test code = GFR) 48.0 70-80 L Units of measure = ml/min/1.73 m2 CREATININE (test code = CREAT) 1.1 mg/dL 0.6-1.3 N CALCIUM (test code = CA) 10.4 mg/dL 8.0-10.5 N [id number] 15:37:00* Test Item Value Reference Range Interpretation Comme nts MAGNESIUM (test code = MAG) 2.34 mg/dL 1.80-2.40 N GLUCOSE [id number] 15:19:00* Test Item Value Reference Range Interpretation Comme nts GLUCOSE BEDSIDE (test code = GLUBED) 209 MG/DL 70-110 H Performed by cer tified fondant machine operator at [facility] BASIC METABOLIC [id number] 13:47:00* Test Item Value Reference Range Interpretation Comme nts SODIUM (test code = NA/ABG) 145 MEQ/L 134-147 N POTASSIUM (test code = K/ABG) 3.6 MEQ/L 3.4-5.0 N CHLORIDE (test code = CL/ABG) 103 MEQ/L 100-108 N CREATININE ABG (test code = CREAABG) 1.3 mg/dL 0.6-1.0 H POC IONIZED CALCIUM (test co de = POCCA) 1.40 MMOL/L 1.12-1.32 H POC GLUCOSE (test code = POCGLU) 326 MG/DL 70-110 H HEMOGLOBIN [id number] 13:47:00* Test Item Value Reference Range Interpretation Comme nts HEMOGLOBIN ABG (test code = HGB/ABG) 9.0 G/DL 11.0-15.0 L [id number] 13:47:00* Test Item Value Reference Range Interpretation Comme [facility] HEMATOCRIT (test code = HCT/ABG) 27 % 33.0-45.0 L POC LACTIC [id number] 13:47:00* Test Item Value Reference Range Interpretation Comme [facility] POC LACTIC ACID (test code = POCLAC) 1.1 mmol/l 0.9-1.7 N POC VENOUS BLOOD [id number] 13:47:00* Test Item Value Reference Range Interpretation Comme [facility] POC VENOUS BLOOD GAS PH (ny t code = POCPHV) 7.298 7.33-7.45 L POC VENOUS BLOOD GAS PCO2 (t est code = UVQQVI6I) 69.6 mmHg 43-47 HH POC VENOUS BLOOD GAS PO2 (te st code = JVGPO6L) 33.8 mmHG 10-50 N POC TCO2 VENOUS (test code = PLVYSC2V) 36.6 POC HCO3 VENOUS (test code = SAPPIK5E) 34.4 MMOL/L 22-27 H POC BASE EXCESS VENOUS (test code = POCBEV) 7.8 MMOL/L -4.0-4.0 H POC O2 SATURATION VENOUS (te st code = ITMH6UE) 58.7 % 60-80 L VENOUS BLOOD GAS FIO2 (test code = FIO2V) 70 % VENOUS BLOOD GAS DELIVERY (t est code = DELV) HFNC VBG TIDAL VOLUME (test code = TVV) 60 ml VENOUS BLOOD GAS TEMP (test code = TEMPV) 97.3 F VENOUS BLOOD GAS SITE (test code = SITEV) Central Line GLUCOSE [id number] 13:38:00* Test Item Value Reference [facility] B[facility] (test code = GLUBED) 236 MG/DL 70-110 H Performed by anna jacobs fondant machine operator at [facility] [id number] 12:35:00* Test Item Value Reference Range Interpretation Comme [facility] SURGICAL (test code = SR) R UN DATE: 12/23/21 [place] - LAB PAGE 1 RUN TIME: 1235 Specimen Inquiry RUN USER: INTERFACE P ATIENT: KIAH GILES LOC: EVAN U #: [id number] AGE/SX: 76/F ROOM: [facility] RE12/17/21REG DR: Jeffry More MD : 43 BED: 1 DIS: STATUS: ADM IN TLOC: SPEC #: [id number] RECD: 12/22/21 STATUS: WILFREDO SHANTANU #: [id number] ARA: 12/19/21- SUBM DR: Jeffry More MD ENTERED: 12/22/21 SP TYPE: SURGICAL OTHR DR: Aruna Ramos MD, Aisha MD Amin, Alkesh C MD Chaugle,René Alva,Colt Joshi MD, MDORDERED: [id number], ANATOMIC SPEC COPIES TO: Aruna Ramos MD [address] [place] [address] Jeffry More MD [address] [place] [address] Suki Fuchs MD [address] [place], [place] [id number] [phone] Dong Fuchs MD [address] [address] René Romero MD [address] [facility] [place] [address] Jd Alva MD [address] [place] [address] Colt Vail MD [address] [facility] [address] [place] [address] CONTINUED ON NEXT PAGE R UN DATE: 12/23/21 [place] - [facility] PAGE 2 RUN TIME: 1235 Specimen Inquiry RUN USER: INTERFACE S PEC #: [id number] PATIENT: KIAH GILES #[id number] (Continued) PROCEDURES: [id number] (12/22/21) TISSUES: A. PERICARDIUM BIOPSY CLINICAL HISTORY SAME FINAL DIAGNOSIS Pericardium, excision: Benign fibroconnective tissue with focal hemorrhage and mild acuteinflammation. GROSS DESCRIPTION Received in formalin labeled "pericardium" include 2 fragments of irregular shaped graham-graymembranous tissue, aggregating to 7.5 cm in maximum dimension, with patient service representative sectionssubmitted in (A). Technical component performed at [facility],[address] [place] [address], [place] [address] Unless gross only, the diagnosis is based [...] Herzog 12/23/21 1235 END OF REPORT GLUCOSE [id number] 12:30:00* Test Item Value Reference Range Interpretation Comme [facility] GLUCOSE BEDSIDE (test code = GLUBED) 250 MG/DL 70-110 H Performed by cer XRONet fondant machine operator at [facility] GLUCOSE [id number] 09:06:00* Test Item Value Reference Range Interpretation Comme [facility] GLUCOSE BEDSIDE (test code = GLUBED) 232 MG/DL 70-110 H Performed by BRAND-YOURSELF fondant machine operator at [facility] GLUCOSE [id number] 06:43:00* Test Item Value Reference Range Interpretation Comme nts GLUCOSE BEDSIDE (test code = GLUBED) 213 MG/DL 70-110 H Performed by anna jacobs fondant machine operator at [facility] CBC W/AUTO [id number] 05:12:00* Test Item Value Reference Range Interpretation Comme nts WHITE BLOOD CELL (test code = WBC) 6.3 x10 3/uL 4.5-11.0 N RED BLOOD CELL (test code = RBC) 2.44 x10 6/uL 3.54-5.02 L HEMOGLOBIN (test code = HGB) 8.7 g/dL 11.0-15.0 L HEMATOCRIT (test code = HCT) 27.6 % 33.0-45.0 L MEAN CELL VOLUME (test code = MCV) 113.1 fL 81.0-99.0 H MEAN CELL HGB (test code = MCH) 35.7 pg 27.0-33.0 H MEAN CELL HGB CONCETRATION (test code = MCHC) 31.5 g/dL 33.0-37.0 L RED CELL DISTRIBUTION WIDTH CV (test code = RDW) 15.9 % 11.5-14.5 H RED CELL DISTRIBUTION WIDTH SD (test code = RDW-SD) 66.9 fL 37.0-54.0 H PLATELET COUNT (test code = PLT) 92 x10 3/uL 150-400 L MEAN PLATELET VOLUME (test c ode = MPV) 11.9 fL 7.0-9.0 H NEUTROPHIL % (test code = NT%) 86.0 % 56.0-77.0 H IMMATURE GRANULOCYTE % (test code = IG%) 1.1 % 0.0-2.0 N LYMPHOCYTE % (test code = LY%) 3.0 % 14.0-32.0 L MONOCYTE % (test code = MO%) 9.2 % 4.8-9.0 H EOSINOPHIL % (test code = EO%) 0.5 % 0.3-3.7 N BASOPHIL % (test code = BA%) 0.2 % 0.0-2.0 N NUCLEATED RBC % (test code = NRBC%) 0.5 % 0-0 H NEUTROPHIL # (test code = NT#) 5.42 x10 3/uL 2.0-7.6 N IMMATURE GRANULOCYTE # (test code = IG#) 0.07 x10 3/uL 0.00-0.03 H LYMPHOCYTE # (test code = LY#) 0.19 x10 3/uL 1.0-3.8 L MONOCYTE # (test code = MO#) 0.58 x10 3/uL 0.1-0.8 N EOSINOPHIL # (test code = EO#) 0.03 x10 3/uL 0.0-0.2 N BASOPHIL # (test code = BA#) 0.01 x10 3/uL 0.0-0.2 N NUCLEATED RBC # (test code = NRBC#) 0.03 x10 3/uL 0.0-0.1 N MANUAL DIFF REQUIRED (test c ode = MDIFF) NO BASIC METABOLIC [id number] 04:47:00* Test Item Value Reference Range Interpretation Comme nts SODIUM (test code = NA) 144 mEq/L 134-147 N POTASSIUM (test code = K) 3.9 mEq/L 3.4-5.0 N CHLORIDE (test code = CL) 107 mEq/L 100-108 N CARBON DIOXIDE (test code = CO2) 28 mEq/l 21-33 N ANION GAP (test code = GAP) 13 0-20 N GLUCOSE (test code = GLU) 222 mg/dL 70-110 H BLOOD UREA NITROGEN (test code = BUN) 33 mg/dL 7-18 H GLOMERULAR FILTRATION RATE (test code = GFR) 48.0 70-80 L Units of measure = ml/min/1.73 m2 CREATININE (test code = CREAT) 1.1 mg/dL 0.6-1.3 N CALCIUM (test code = CA) 10.5 mg/dL 8.0-10.5 N [id number] 04:47:00* Test Item Value Reference Range Interpretation Comme nts MAGNESIUM (test code = MAG) 2.42 mg/dL 1.80-2.40 H POC ARTERIAL BLOOD [id number] 04:01:00* Test Item Value Reference Range Interpretation Comme nts POC ARTERIAL BLOOD GAS PH (t est code = POCPHA) 7.313 7.35-7.45 L POC ARTERIAL BLOOD GAS PCO2 (test code = EEYRJM6K) 61.5 mmHg 35.0-45 HH POC TCO2 ARTERIAL (test code = POCTCO2) 33.1 POC ARTERIAL BLOOD GAS PO2 ( test code = RYPOC8P) 65.8 mmHg 80-100.0 L POC HCO3 ARTERIAL (test code = XJABIJ1C) 31.2 MMOL/L 22.0-26.0 HH POC BASE EXCESS (test code = POCBEA) 5.0 MMOL/L -4.0-4.0 H POC O2 SATURATION (test code = POCO2S) 90.0 % 90-100 N FIO2 (test code = FIO2A) 73 % PaO2/FiO2 (test code = ZJT7TMI2) 90.13 mm/Hg ABG DELIVERY (test code = MAAME) HFNC ABG SITE (test code = SITEA) R Radial MARTIN'S TEST (test code = ALLENS) Positive BASIC METABOLIC [id number] 04:01:00* Test Item Value Reference Range Interpretation Comme nts SODIUM (test code = NA/ABG) 145 MEQ/L 134-147 N POTASSIUM (test code = K/ABG) 3.6 MEQ/L 3.4-5.0 N CHLORIDE (test code = CL/ABG) 106 MEQ/L 100-108 N CREATININE ABG (test code = CREAABG) 1.1 mg/dL 0.6-1.0 H POC IONIZED CALCIUM (test co de = POCCA) 1.38 MMOL/L 1.12-1.32 H POC GLUCOSE (test code = POCGLU) 234 MG/DL 70-110 H HEMOGLOBIN [id number] 04:01:00* Test Item Value Reference Range Interpretation Comme nts HEMOGLOBIN ABG (test code = HGB/ABG) 11.2 G/DL 11.0-15.0 N [id number] 04:01:00* Test Item Value Reference Range Interpretation Comme nts HEMATOCRIT (test code = HCT/ABG) 33 % 33.0-45.0 N POC LACTIC [id number] 04:01:00* Test Item Value Reference Range Interpretation Comme nts POC LACTIC ACID (test code = POCLAC) 0.8 mmol/l 0.9-1.7 L GLUCOSE [id number] 00:43:00* Test Item Value Reference Range Interpretation Comme nts GLUCOSE BEDSIDE (test code = GLUBED) 222 MG/DL 70-110 H Performed by cer tified fondant machine operator at [facility] - XR ABDOMEN 1V (KUB)2021-12-23 00:00:00 [facility] 1945 Sex: F FAX: Jeffry Pennington MD [phone] [place]: St: ADM FAX: Dong Christiansen MD [phone] FAX: Solange Sawyer MD [phone] FAX: Colt Aguillon MD [phone] Name: KIAH GILES [facility] : 1945 Age/S: 76/F [address] [place] [address] Unit #: [id number] Loc: [address] [place] [address] Phys: Solange Mohamud MD Acct: [id number] Dis Date: Status: ADM IN PHONE #: [phone] Exam Date: 12/23/2021 0055 FAX #: [phone] Reason: NG TUBE PLACEMENT EXAMS: CPT CODE: [id number] XR ABDOMEN 1V ([id number] PROCEDURE INFORMATION: Exam: XR Abdomen Exam date [...] abdomen and left lower quadrant. Intraperitoneal space: Noevidence of pneumoperitoneum or soft tissue masses. Bones/joints: Unremarkable. Soft tissues: No abnormal radiopaque densities. IMPRESSION: 1. A nasogastric tube terminates overlying the stomach. 2. Dilated small bowel loops in the left lower quadrant. Electronically Signed by Nancy Mendiola on12/23/2021 at 0122 Reported and signed by: Sanchez Mendiola M.D CC: Jeffry More MD; Dong Chavez; Solange Mohamud MD; Colt Vail MD Technologist: RT Elba(Marla) Trnscrd Date/Time/By: 12/23/2021 (012) : By: [email or web address] Orig Print D/T: S: 12/23/2021 (012) PAGE 1 Signed Report- XR CHEST 1 [id number] 00:00:00 [facility] : 1945 Sex: F FAX: Jeffry Pennington MD [phone] [place]: St: ADM FAX: Dong Christiansen MD [phone] FAX: René Blancas [phone] FAX: Colt Aguillon MD [phone] Name: KIAH GILES [facility] Emiliano Hart : 1945 Age/S: 76/F [address] [place] [address] Unit #: [id number] Loc: [place] [address] Phys: René Romero MD Acct: [id number] Dis Date: Status: ADM IN PHONE #: [phone] Exam Date: 12/23/2021654 FAX #: [phone] Reason: Cardiac Surgery Post Op EXAMS: CPT CODE: [id number] XR CHEST 1 V [id number] PROCEDURE INFORMATION: Exam: XR Chest Exam date and time: 12/23/2021 5:07 AM Age: 76 yearsold Clinical indication: Other: Cardiac surgery post op TECHNIQUE: Imaging protocol: Radiologic exam of the chest. Views: 1 view. COMPARISON: CR XR CHEST 1V 12/22/2021 5:14 AM FINDINGS: Tubes, catheters and devices: Chest tubes removed. [place]-Juanita catheter removed. Jugular introducer sheath remainsin place. AICD, generator left chest wall. Lungs: Bilateral perihilar and dependent atelectasis, interstitial infiltrates are similar to previous. Pleural spaces: Small bilateral pleural effusions stable. No visible pneumothorax. Heart/Mediastinum: Stable cardiomegaly, Cardiac valvuloplasty. Stablemediastinal contours. Bones/joints: Sternotomy. IMPRESSION: Stable postoperative chest, following removal of bilateral chest tubes. at 0806 Reported and signed by: Jesus Galdamez M.D. CC: Jeffry More MD; Dong Fuchs MD; René Romero MD; Colt Vail MD Technologist: RT Caroline(R) Trnscrd Date/Time/By: 12/23/2021 (08) : By: [email or web address] Orig Print D/T: S: 12/23/2021 (0874) PAGE 1 Signed ReportBASIC METABOLIC PANEL 2021-12-22 23:05:00* Test Item Value Reference Range Interpretation Comme nts SODIUM (test code = NA) mEq/L 134-147 T HIS IS A CORRECTED REPORT. DISREGARD PREVIOUS REPORT. POTASSIUM (test code = K) mEq/L 3.4-5.0 CHLORIDE (test code = CL) mEq/L 100-108 CARBON DIOXIDE (test code = CO2) mEq/l 21-33 ANION GAP (test code = GAP) 0-20 GLUCOSE (test code = GLU) mg/dL 70-110 BLOOD UREA NITROGEN (test code = BUN) mg/dL 7-18 GLOMERULAR FILTRATION RATE (test code = GFR) 70-80 CREATININE (test code = CREAT) mg/dL 0.6-1.3 CALCIUM (test code = CA) mg/dL 8.0-10.5 [id number] 23:05:00* Test Item Value Reference Range Interpretation Comme nts MAGNESIUM (test code = MAG) mg/dL 1.80-2.40 CBC W/AUTO [id number] 22:57:00* Test Item Value Reference Range Interpretation Comme nts WHITE BLOOD CELL (test code = WBC) 13.7 x10 3/uL 4.5-11.0 H RED BLOOD CELL (test code = RBC) 3.27 x10 6/uL 3.54-5.02 L HEMOGLOBIN (test code = HGB) 8.9 g/dL 11.0-15.0 L HEMATOCRIT (test code = HCT) 26.6 % 33.0-45.0 L MEAN CELL VOLUME (test code = MCV) 81.3 fL 81.0-99.0 MEAN CELL HGB (test code = MCH) 27.2 pg 27.0-33.0 N MEAN CELL HGB CONCETRATION (test code = MCHC) 33.5 g/dL 33.0-37.0 N RED CELL DISTRIBUTION WIDTH CV (test code = RDW) 13.3 % 11.5-14.5 N RED CELL DISTRIBUTION WIDTH SD (test code = RDW-SD) 39.4 fL 37.0-54.0 N PLATELET COUNT (test code = PLT) 180 x10 3/uL 150-400 MEAN PLATELET VOLUME (test code = MPV) 9.9 fL 7.0-9.0 H NEUTROPHIL % (test code = NT%) 91.8 % 56.0-77.0 H IMMATURE GRANULOCYTE % (test code = IG%) 0.4 % 0.0-2.0 N LYMPHOCYTE % (test code = LY%) 3.1 % 14.0-32.0 L MONOCYTE % (test code = MO%) 4.6 % 4.8-9.0 L EOSINOPHIL % (test code = EO%) 0.0 % 0.3-3.7 L BASOPHIL % (test code = BA%) 0.1 % 0.0-2.0 N NUCLEATED RBC % (test code = NRBC%) 0.0 % 0-0 N NEUTROPHIL # (test code = NT#) 12.62 x10 3/uL 2.0-7.6 H IMMATURE GRANULOCYTE # (test code = IG#) 0.05 x10 3/uL 0.00-0.03 H LYMPHOCYTE # (test code = LY#) 0.42 x10 3/uL 1.0-3.8 L MONOCYTE # (test code = MO#) 0.63 x10 3/uL 0.1-0.8 N EOSINOPHIL # (test code = EO#) 0.00 x10 3/uL 0.0-0.2 N BASOPHIL # (test code = BA#) 0.01 x10 3/uL 0.0-0.2 N NUCLEATED RBC # (test code = NRBC#) 0.00 x10 3/uL 0.0-0.1 N MANUAL DIFF REQUIRED (test code = MDIFF) NO CALCIUM [id number] 22:56:00* Test Item Value Reference Range Interpretation Comme nts CALCIUM IONIZED (test code = TYREE) 1.10 MMOL/L 1.09-1.30 N GLUCOSE [id number] 21:52:00* Test Item Value Reference Range Interpretation Comme nts GLUCOSE BEDSIDE (test code = GLUBED) 168 MG/DL 70-110 H Performed by cer tified fondant machine operator at [facility] GLUCOSE [id number] 18:08:00* Test Item Value Reference Range Interpretation Comme nts GLUCOSE BEDSIDE (test code = GLUBED) 238 MG/DL 70-110 H Performed by cer tified fondant machine operator at [facility] BASIC METABOLIC [id number] 17:53:00* Test Item Value Reference Range Interpretation Comme nts SODIUM (test code = NA/ABG) 142 MEQ/L 134-147 N POTASSIUM (test code = K/ABG) 6.2 MEQ/L 3.4-5.0 HH CHLORIDE (test code = CL/ABG) 106 MEQ/L 100-108 N CREATININE ABG (test code = CREAABG) 1.1 mg/dL 0.6-1.0 H POC IONIZED CALCIUM (test co de = POCCA) 1.35 MMOL/L 1.12-1.32 H POC GLUCOSE (test code = POCGLU) 236 MG/DL 70-110 H HEMOGLOBIN [id number] 17:53:00* Test Item Value Reference Range Interpretation Comme nts HEMOGLOBIN ABG (test code = HGB/ABG) 11.8 G/DL 11.0-15.0 N [id number] 17:53:00* Test Item Value Reference Range Interpretation Comme nts HEMATOCRIT (test code = HCT/ABG) 35 % 33.0-45.0 N POC LACTIC [id number] 17:53:00* Test Item Value Reference Range Interpretation Comme nts POC LACTIC ACID (test code = POCLAC) 0.7 mmol/l 0.9-1.7 L POC VENOUS BLOOD [id number] 17:53:00* Test Item Value Reference Range Interpretation Comme nts MARTIN'S TEST (test code = ALLENS) N/A POC VENOUS BLOOD GAS PH (ny t code = POCPHV) 7.282 7.33-7.45 L POC VENOUS BLOOD GAS PCO2 (t est code = JMZXQL8S) 61.7 mmHg 43-47 HH POC VENOUS BLOOD GAS PO2 (te st code = LISCM6Z) 37.2 mmHG 10-50 N POC TCO2 VENOUS (test code = FLVZBP4P) 31.2 POC HCO3 VENOUS (test code = GGKIWM9A) 29.3 MMOL/L 22-27 H POC BASE EXCESS VENOUS (test code = POCBEV) 2.5 MMOL/L -4.0-4.0 N POC O2 SATURATION VENOUS (te st code = KEXV8YE) 63.2 % 60-80 N VENOUS BLOOD GAS FIO2 (test code = FIO2V) 40 % VENOUS BLOOD GAS DELIVERY (t est code = DELV) BiPAP VBG VENT MODE (test code = MODEV) BIVENT VENOUS BLOOD GAS TEMP (test code = TEMPV) 98 F VENOUS BLOOD GAS SITE (test code = SITEV) Central Line BASIC METABOLIC [id number] 15:58:00* Test Item Value Reference Range Interpretation Comme nts SODIUM (test code = NA/ABG) 143 MEQ/L 134-147 N POTASSIUM (test code = K/ABG) 3.6 MEQ/L 3.4-5.0 N CHLORIDE (test code = CL/ABG) 103 MEQ/L 100-108 N CREATININE ABG (test code = CREAABG) 1.2 mg/dL 0.6-1.0 H POC IONIZED CALCIUM (test co de = POCCA) 1.35 MMOL/L 1.12-1.32 H POC GLUCOSE (test code = POCGLU) 371 MG/DL 70-110 H HEMOGLOBIN [id number] 15:58:00* Test Item Value Reference Range Interpretation Comme nts HEMOGLOBIN ABG (test code = HGB/ABG) 8.1 G/DL 11.0-15.0 L [id number] 15:58:00* Test Item Value Reference Range Interpretation Comme nts HEMATOCRIT (test code = HCT/ABG) 24 % 33.0-45.0 L POC LACTIC [id number] 15:58:00* Test Item Value Reference Range Interpretation Comme nts POC LACTIC ACID (test code = POCLAC) 0.6 mmol/l 0.9-1.7 L POC VENOUS BLOOD [id number] 15:58:00* Test Item Value Reference Range Interpretation Comme nts MARTIN'S TEST (test code = ALLENS) N/A POC VENOUS BLOOD GAS PH (ny t code = POCPHV) 7.226 7.33-7.45 L POC VENOUS BLOOD GAS PCO2 (t est code = GEKTBT5A) 74.1 mmHg 43-47 HH POC VENOUS BLOOD GAS PO2 (te st code = HFCYB7R) 36.8 mmHG 10-50 N POC TCO2 VENOUS (test code = QPNDLT4P) 33.2 POC HCO3 VENOUS (test code = RGTMHF2C) 30.9 MMOL/L 22-27 H POC BASE EXCESS VENOUS (test code = POCBEV) 3.2 MMOL/L -4.0-4.0 N POC O2 SATURATION VENOUS (te st code = DGYU4LM) 58.2 % 60-80 L VENOUS BLOOD GAS FIO2 (test code = FIO2V) 60 % VENOUS BLOOD GAS DELIVERY (t est code = DELV) Vapotherm LILIYA. BLOOD GAS RESP. RATE (t est code = RRV) 20 /min VBG TIDAL VOLUME (test code = TVV) 550 ml VENOUS BLOOD GAS TEMP (test code = TEMPV) 98 F VENOUS BLOOD GAS SITE (test code = SITEV) Central Line GLUCOSE [id number] 11:37:00* Test Item Value Reference Range Interpretation Comme nts GLUCOSE BEDSIDE (test code = GLUBED) 258 MG/DL 70-110 H Performed by cer tifKeyword Rock[employer] fondant machine operator at [facility] [id number] 07:18:00* Test Item Value Reference Range Interpretation Comme nts PHOSPHOROUS (test code = PHOS) 3.4 MG/DL 2.5-4.9 N GLUCOSE [id number] 07:01:00* Test Item Value Reference Range Interpretation Comme nts GLUCOSE BEDSIDE (test code = GLUBED) 211 MG/DL 70-110 H Performed by cer XRONet fondant machine operator at [facility] CBC W/AUTO [id number] 05:28:00* Test Item Value Reference Range Interpretation Comme nts WHITE BLOOD CELL (test code = WBC) 9.0 x10 3/uL 4.5-11.0 N RED BLOOD CELL (test code = RBC) 2.32 x10 6/uL 3.54-5.02 L HEMOGLOBIN (test code = HGB) 8.2 g/dL 11.0-15.0 L HEMATOCRIT (test code = HCT) 25.3 % 33.0-45.0 L MEAN CELL VOLUME (test code = MCV) 109.1 fL 81.0-99.0 H MEAN CELL HGB (test code = MCH) 35.3 pg 27.0-33.0 H MEAN CELL HGB CONCETRATION (test code = MCHC) 32.4 g/dL 33.0-37.0 L RED CELL DISTRIBUTION WIDTH CV (test code = RDW) 16.1 % 11.5-14.5 H RED CELL DISTRIBUTION WIDTH SD (test code = RDW-SD) 64.1 fL 37.0-54.0 H PLATELET COUNT (test code = PLT) 84 x10 3/uL 150-400 L MEAN PLATELET VOLUME (test c ode = MPV) 11.9 fL 7.0-9.0 H NEUTROPHIL % (test code = NT%) 88.9 % 56.0-77.0 H IMMATURE GRANULOCYTE % (test code = IG%) 0.8 % 0.0-2.0 N LYMPHOCYTE % (test code = LY%) 2.6 % 14.0-32.0 L MONOCYTE % (test code = MO%) 7.5 % 4.8-9.0 N EOSINOPHIL % (test code = EO%) 0.1 % 0.3-3.7 L BASOPHIL % (test code = BA%) 0.1 % 0.0-2.0 N NUCLEATED RBC % (test code = NRBC%) 0.2 % 0-0 H NEUTROPHIL # (test code = NT#) 7.98 x10 3/uL 2.0-7.6 H IMMATURE GRANULOCYTE # (test code = IG#) 0.07 x10 3/uL 0.00-0.03 H LYMPHOCYTE # (test code = LY#) 0.23 x10 3/uL 1.0-3.8 L MONOCYTE # (test code = MO#) 0.67 x10 3/uL 0.1-0.8 N EOSINOPHIL # (test code = EO#) 0.01 x10 3/uL 0.0-0.2 N BASOPHIL # (test code = BA#) 0.01 x10 3/uL 0.0-0.2 N NUCLEATED RBC # (test code = NRBC#) 0.02 x10 3/uL 0.0-0.1 N MANUAL DIFF REQUIRED (test c ode = MDIFF) NO BASIC METABOLIC [id number] 05:03:00* Test Item Value Reference Range Interpretation Comme nts SODIUM (test code = NA) 143 mEq/L 134-147 N POTASSIUM (test code = K) 4.0 mEq/L 3.4-5.0 N CHLORIDE (test code = CL) 106 mEq/L 100-108 N CARBON DIOXIDE (test code = CO2) 27 mEq/l 21-33 N ANION GAP (test code = GAP) 14 0-20 N GLUCOSE (test code = GLU) 219 mg/dL 70-110 H BLOOD UREA NITROGEN (test code = BUN) 33 mg/dL 7-18 H GLOMERULAR FILTRATION RATE (test code = GFR) 39.6 70-80 L Units of measure = ml/min/1.73 m2 CREATININE (test code = CREAT) 1.3 mg/dL 0.6-1.3 N CALCIUM (test code = CA) 10.4 mg/dL 8.0-10.5 N COMMENTS: POD #1HEPATIC FUNCTION [id number] 05:03:00* Test Item Value Reference Range Interpretation Comme nts TOTAL PROTEIN (test code = PROT) 6.8 g/dL 6.4-8.2 N ALBUMIN (test code = ALB) 4.30 g/dL 3.4-5.0 N BILIRUBIN TOTAL (test code = BILT) 0.50 mg/dL 0.0-1.0 N BILIRUBIN DIRECT (test code = BILD) 0.20 MG/DL 0.0-0.30 BILIRUBIN INDIRECT (test cod e = BILIND) 0.30 MG/DL SGOT/AST (test code = AST) 22 IUnit/L 15-37 N SGPT/ALT (test code = ALT) 13 IUnit/L 30-65 L ALKALINE PHOSPHATASE TOTAL ( test code = ALKP) 57 IUnit/L 20-125 N COMMENTS: POD #[id number] 05:03:00* Test Item Value Reference Range Interpretation Comme nts MAGNESIUM (test code = MAG) 2.20 mg/dL 1.80-2.40 N COMMENTS: POD #1POC ARTERIAL BLOOD [id number] 04:35:00* Test Item Value Reference Range Interpretation Comme nts POC ARTERIAL BLOOD GAS PH (t est code = POCPHA) 7.334 7.35-7.45 L POC ARTERIAL BLOOD GAS PCO2 (test code = DQQAVA9K) 55.7 mmHg 35.0-45 HH POC TCO2 ARTERIAL (test code = POCTCO2) 31.4 POC ARTERIAL BLOOD GAS PO2 ( test code = JVNHE7C) 88.6 mmHg 80-100.0 N POC HCO3 ARTERIAL (test code = AAMQXJ4L) 29.7 MMOL/L 22.0-26.0 HH POC BASE EXCESS (test code = POCBEA) 3.8 MMOL/L -4.0-4.0 N POC O2 SATURATION (test code = POCO2S) 96.0 % 90-100 N FIO2 (test code = FIO2A) 60 % PaO2/FiO2 (test code = ATE5FOX7) 147.66 mm/Hg ABG DELIVERY (test code = MAAME) BiPAP ABG VENT RESP RATE (test cod e = RRA) 25 /MIN ABG TIDAL VOLUME (test code = TVA) 550 ml ABG TEMPERATURE (test code = TEMPA) 98.4 F ABG SITE (test code = SITEA) Art Line BASIC METABOLIC [id number] 04:35:00* Test Item Value Reference Range Interpretation Comme nts SODIUM (test code = NA/ABG) 145 MEQ/L 134-147 N POTASSIUM (test code = K/ABG) 3.7 MEQ/L 3.4-5.0 N CHLORIDE (test code = CL/ABG) 106 MEQ/L 100-108 N CREATININE ABG (test code = CREAABG) 1.3 mg/dL 0.6-1.0 H POC IONIZED CALCIUM (test co de = POCCA) 1.44 MMOL/L 1.12-1.32 H POC GLUCOSE (test code = POCGLU) 224 MG/DL 70-110 H HEMOGLOBIN [id number] 04:35:00* Test Item Value Reference Range Interpretation Comme nts HEMOGLOBIN ABG (test code = HGB/ABG) 8.6 G/DL 11.0-15.0 L [id number] 04:35:00* Test Item Value Reference Range Interpretation Comme nts HEMATOCRIT (test code = HCT/ABG) 25 % 33.0-45.0 L POC LACTIC [id number] 04:35:00* Test Item Value Reference Range Interpretation Comme nts POC LACTIC ACID (test code = POCLAC) 0.9 mmol/l 0.9-1.7 N GLUCOSE [id number] 00:16:00* Test Item Value Reference Range Interpretation Comme nts GLUCOSE BEDSIDE (test code = GLUBED) 178 MG/DL 70-110 H Performed by cer tified fondant machine operator at [facility] POC ARTERIAL BLOOD [id number] 00:06:00* Test Item Value Reference Range Interpretation Comme nts POC ARTERIAL BLOOD GAS PH (t est code = POCPHA) 7.330 7.35-7.45 L POC ARTERIAL BLOOD GAS PCO2 (test code = SXGIOX9S) 51.8 mmHg 35.0-45 HH POC TCO2 ARTERIAL (test code = POCTCO2) 29.1 POC ARTERIAL BLOOD GAS PO2 ( test code = BXVQG4Y) 69.4 mmHg 80-100.0 L POC HCO3 ARTERIAL (test code = LHNJYX6W) 27.5 MMOL/L 22.0-26.0 H POC BASE EXCESS (test code = POCBEA) 1.4 MMOL/L -4.0-4.0 N POC O2 SATURATION (test code = POCO2S) 92.5 % 90-100 N FIO2 (test code = FIO2A) 60 % PaO2/FiO2 (test code = QTJ9YQM0) 115.66 mm/Hg ABG DELIVERY (test code = MAAME) BiPAP ABG VENT RESP RATE (test cod e = RRA) 25 /MIN ABG TIDAL VOLUME (test code = TVA) 550 ml ABG TEMPERATURE (test code = TEMPA) 97.7 F ABG SITE (test code = SITEA) Art Line BASIC METABOLIC [id number] 00:06:00* Test Item Value Reference Range Interpretation Comme nts SODIUM (test code = NA/ABG) 142 MEQ/L 134-147 N POTASSIUM (test code = K/ABG) 4.1 MEQ/L 3.4-5.0 N CHLORIDE (test code = CL/ABG) 106 MEQ/L 100-108 N CREATININE ABG (test code = CREAABG) 1.4 mg/dL 0.6-1.0 H POC IONIZED CALCIUM (test co de = POCCA) 1.40 MMOL/L 1.12-1.32 H POC GLUCOSE (test code = POCGLU) 196 MG/DL 70-110 H HEMOGLOBIN [id number] 00:06:00* Test Item Value Reference Range Interpretation Comme nts HEMOGLOBIN ABG (test code = HGB/ABG) 8.3 G/DL 11.0-15.0 L [id number] 00:06:00* Test Item Value Reference Range Interpretation Comme nts HEMATOCRIT (test code = HCT/ABG) 24 % 33.0-45.0 L POC LACTIC [id number] 00:06:00* Test Item Value Reference Range Interpretation Comme nts POC LACTIC ACID (test code = POCLAC) 0.8 mmol/l 0.9-1.7 L - XR ABDOMEN 1V (KUB)2021-12-22 00:00:00 [facility] 1945 Sex: F FAX: Jeffry Pennington MD [phone] [place]: St: ADM FAX: Dong Christiansen MD [phone] FAX: Solange Sawyer MD [phone] FAX: Colt Aguillon MD [phone] Name: KIAH GILES [facility] : 1945 Age/S: 76/F [address] [place] [address] Unit #: [id number] Loc: [address] [place] [id number] Phys: Solange Mohamud MD Acct: [id number] Dis Date: Status: ADM IN PHONE #: [phone] Exam Date: FAX #: [phone] Reason: NAUSEA EXAMS: CPT CODE: [id number] XR ABDOMEN 1V (KUB) [id number] PROCEDURE INFORMATION: Exam: XR Abdomen Exam date and time: 12/22/2021 9:26 PM Age: 76 years old Clinicalindication: Nausea TECHNIQUE: Imaging protocol: Radiologic exam of the abdomen. Views: Frontal supine view of the abdomen. 1 View. COMPARISON: CR XR CHEST 1V 12/22/2021 5:14 AM FINDINGS: Gastrointestinal tract: Lower abdomen small bowel show diffuse distention up to 3.4 cm diameter. There is no pneumatosis or mass effect. Bones/joints: Unremarkable. Soft tissues: Surgical sutures overlie the right abdomen. IMPRESSION: Nonspecific lower abdomen small bowel distention. If symptoms persist or worsen, follow-up imaging may be performed to better assess for small bowel obstruction at 2153 Reported and signed by: Anoop Lilly M.D. CC: Jeffry More MD; Dong Fuchs MD; Solange Mohamud MD; Colt Vail MD Technologist: MAXIMILIANO Sawant) Trnscrd Date/Time/By: 12/22/2021 (2153) : By: [email or web address] Orig Print D/T: S: 12/22/2021 (2154) PAGE 1 Signed Report- US SOFT TISSUE [id number] 00:00:00 [facility] : 1945 Sex: F Name: KIAH GILES [facility] : 1945 Age/S: 76 / F [address] [place] [address] Unit #: [id number] Loc: [place] [address] Phys: Jd Alva MD Acct: [id number] Dis Date: Status: ADM IN PHONE #: [phone] Exam Date: 12/22/2021 1107 FAX #: [phone] Reason: right pleural effusion EXAMS: CPT CODE: [id number] US SOFT TISSUE TORSO [id number] PROCEDURE INFORMATION: Exam: US Chest, Pleural Space Exam date and time: 12/22/2021 10:18 AM Age: 76 years old Clinical indication: Screening exam; Other screening; Additional info: Right pleural effusion TECHNIQUE: Imaging protocol: Real time ultrasound of the chest was performed with image documentation. Exam focused on the pleural space. COMPARISON: CT CHEST W/O CONTRAST 12/17/2021 5:33 PM FINDINGS: Pleural spaces: Minimal left and mild right pleural effusions. IMPRESSION: Minimal left and mild right pleural effusions. at 1125 Reported and signed by: Amina Garcia D.O. CC: Jeffry More MD; Dong Fuchs MD; Jd Alva MD; Colt Vail MD Technologist: Silke Vee RDMS(AB)(OB) Trnscb Date/Time: 12/22/2021 (1124) [email or web address] Orig Print D/T: S: 12/22/2021 (1124) Probe: PAGE 1 Signed Report- XR CHEST 1 V 2021-12-22 00:00:00 [facility] : 1945 Sex: F FAX: Jeffry Pennington MD [phone] [place]: St: ADM FAX: Dong Christiansen MD [phone] FAX: René Blancas [phone] FAX: Colt Aguillon MD [phone] Name: KIAH GILES [facility] : 1945 Age/S: 76/F [address] [place] [address] Unit #: [id number] Loc: G.2201 [place] [address] Phys: René Romero MD Acct: [id number] Dis Date: Status: ADM IN PHONE #: [phone] Exam Date: 12/13 FAX #: [phone] Reason: Cardiac Surgery Post Op EXAMS: CPT CODE: [id number] XR CHEST1 V 12665 PROCEDURE INFORMATION: Exam: XR Chest Exam date and time: 12/22/2021 5:14 AM Age: 76 years old Clinical indication: Other: Cardiac surgery post op TECHNIQUE: Imaging protocol: Radiologic exam of the chest. Views: 1 view. COMPARISON: CR XR CHEST 1V 12/21/2021 5:41 AM FINDINGS: Tubes, catheters and devices: Right IJ [place]-Juanita introducer and [place]uanita catheter with the catheter tip at the [...] congestion. Vasculature: Vascular calcification mildly tortuous thoracic aortic arch and descending thoracic aorta. Aortic valvular device. Bones/joints: No acute abnormality. Sternotomy wires. IMPRESSION: 1. Interval worsening pulmonary venous vascular congestion. 2. Interval worsening opacity at the right lung/right hemithorax likely representing combination of increasing pulmonary parenchymal opacity at the right mid and lower lung lema and increase inright pleural fluid collection layering over the right lung. 3. Interval worsening opacity at the retrocardiac left lower lung field. at 0905 Reported and signed by: Ming Gibbs M.D. PAGE 1 Signed Report (CONTINUED) FAX: Jeffry Pennington MD [phone] [place]: St: ADM FAX: Dong Christiansen MD [phone] FAX: René Blancas [phone] FAX: Colt Aguillon MD [phone] Name: KIAH GILES [facility] : 1945 Age/S: 76/F [address] [place] [address] Unit #: [id number] Loc: [address] [address] Phys: Azul Romero MD Acct: [id number] Dis Date: Status: ADM IN PHONE #: [phone] Exam Date: 12/22/2021 0635 FAX #: [phone] Reason: Cardiac Surgery Post Op EXAMS: CPT CODE: [id number] XR CHEST 1V 09375 (Continued) CC: Jeffry More MD; Dong Fuchs MD; René Romero MD; Colt Vail MD Technologist: Hali Leon RT(R) Trnscrd Date/Time/By: 12/22/2021 (0905) : By: AureliaPJ5 [facility] D/T: S: 12/22/2021 (0876) PAGE 2 Signed ReportPO ARTERIAL BLOOD [id number] 21:10:00* Test Item Value Reference Range Interpretation Comme nts POC ARTERIAL BLOOD GAS PH (t est code = POCPHA) 7.306 7.35-7.45 L POC ARTERIAL BLOOD GAS PCO2 (test code = YYLZEG9N) 56.1 mmHg 35.0-45 HH POC TCO2 ARTERIAL (test code = POCTCO2) 29.8 POC ARTERIAL BLOOD GAS PO2 ( test code = XUFII7L) 64.8 mmHg 80-100.0 L POC HCO3 ARTERIAL (test code = WRKKDF6P) 28.1 MMOL/L 22.0-26.0 HH POC BASE EXCESS (test code = POCBEA) 1.7 MMOL/L -4.0-4.0 N POC O2 SATURATION (test code = POCO2S) 90.0 % 90-100 N FIO2 (test code = FIO2A) 60 % PaO2/FiO2 (test code = VOW8MYE7) 108.00 mm/Hg ABG DELIVERY (test code = MAAME) BiPAP ABG VENT RESP RATE (test cod e = RRA) 25 /MIN ABG TIDAL VOLUME (test code = TVA) 550 ml ABG TEMPERATURE (test code = TEMPA) 98.1 F ABG SITE (test code = SITEA) Art Line BASIC METABOLIC [id number] 21:10:00* Test Item Value Reference Range Interpretation Comme nts SODIUM (test code = NA/ABG) 142 MEQ/L 134-147 N POTASSIUM (test code = K/ABG) 4.4 MEQ/L 3.4-5.0 N CHLORIDE (test code = CL/ABG) 107 MEQ/L 100-108 N CREATININE ABG (test code = CREAABG) 1.6 mg/dL 0.6-1.0 H POC IONIZED CALCIUM (test co de = POCCA) 1.39 MMOL/L 1.12-1.32 H POC GLUCOSE (test code = POCGLU) 200 MG/DL 70-110 H HEMOGLOBIN [id number] 21:10:00* Test Item Value Reference Range Interpretation Comme nts HEMOGLOBIN ABG (test code = HGB/ABG) 8.4 G/DL 11.0-15.0 L [id number] 21:10:00* Test Item Value Reference Range Interpretation Comme nts HEMATOCRIT (test code = HCT/ABG) 25 % 33.0-45.0 L POC LACTIC [id number] 21:10:00* Test Item Value Reference Range Interpretation Comme nts POC LACTIC ACID (test code = POCLAC) 0.8 mmol/l 0.9-1.7 L GLUCOSE [id number] 16:26:00* Test Item Value Reference Range Interpretation Comme nts GLUCOSE BEDSIDE (test code = GLUBED) 178 MG/DL 70-110 H Performed by cer tified fondant machine operator at [facility] POC ARTERIAL BLOOD [id number] 16:07:00* Test Item Value Reference Range Interpretation Comme nts POC ARTERIAL BLOOD GAS PH (t est code = POCPHA) 7.282 7.35-7.45 LL POC ARTERIAL BLOOD GAS PCO2 (test code = FNTLSX9X) 56.0 mmHg 35.0-45 HH POC TCO2 ARTERIAL (test code = POCTCO2) 28.3 POC ARTERIAL BLOOD GAS PO2 ( test code = XTUEY5L) 92.5 mmHg 80-100.0 N POC HCO3 ARTERIAL (test code = LPONLT9X) 26.5 MMOL/L 22.0-26.0 H POC BASE EXCESS (test code = POCBEA) -0.3 MMOL/L -4.0-4.0 N POC O2 SATURATION (test code = POCO2S) 96.0 % 90-100 N FIO2 (test code = FIO2A) 100 % PaO2/FiO2 (test code = UTQ9ATP7) 92.50 mm/Hg ABG DELIVERY (test code = MAAME) Vapotherm ABG TEMPERATURE (test code = TEMPA) 98 F ABG SITE (test code = SITEA) Art Line MARTIN'S TEST (test code = ALLENS) N/A BASIC METABOLIC [id number] 16:07:00* Test Item Value Reference Range Interpretation Comme nts SODIUM (test code = NA/ABG) 144 MEQ/L 134-147 N POTASSIUM (test code = K/ABG) 4.2 MEQ/L 3.4-5.0 N CHLORIDE (test code = CL/ABG) 108 MEQ/L 100-108 N CREATININE ABG (test code = CREAABG) 1.5 mg/dL 0.6-1.0 H POC IONIZED CALCIUM (test co de = POCCA) 1.33 MMOL/L 1.12-1.32 H POC GLUCOSE (test code = POCGLU) 175 MG/DL 70-110 H HEMOGLOBIN [id number] 16:07:00* Test Item Value Reference Range Interpretation Comme nts HEMOGLOBIN ABG (test code = HGB/ABG) 8.6 G/DL 11.0-15.0 L [id number] 16:07:00* Test Item Value Reference Range Interpretation Comme nts HEMATOCRIT (test code = HCT/ABG) 25 % 33.0-45.0 L POC LACTIC [id number] 16:07:00* Test Item Value Reference Range Interpretation Comme nts POC LACTIC ACID (test code = POCLAC) 1.0 mmol/l 0.9-1.7 N POC ARTERIAL BLOOD [id number] 15:23:00* Test Item Value Reference Range Interpretation Comme nts POC ARTERIAL BLOOD GAS PH (t est code = POCPHA) 7.310 7.35-7.45 L POC ARTERIAL BLOOD GAS PCO2 (test code = VHACJT3R) 52.4 mmHg 35.0-45 HH POC TCO2 ARTERIAL (test code = POCTCO2) 27.9 POC ARTERIAL BLOOD GAS PO2 ( test code = CRXXM0M) 87.5 mmHg 80-100.0 N POC HCO3 ARTERIAL (test code = UMXYLX7S) 26.3 MMOL/L 22.0-26.0 H POC BASE EXCESS (test code = POCBEA) 0.1 MMOL/L -4.0-4.0 N POC O2 SATURATION (test code = POCO2S) 95.4 % 90-100 N FIO2 (test code = FIO2A) 60 % PaO2/FiO2 (test code = AYH1AGV0) 145.83 mm/Hg ABG DELIVERY (test code = MAAME) BiPAP ABG TEMPERATURE (test code = TEMPA) 99 F ABG SITE (test code = SITEA) Art Line MARTIN'S TEST (test code = ALLENS) N/A BASIC METABOLIC [id number] 15:23:00* Test Item Value Reference Range Interpretation Comme nts SODIUM (test code = NA/ABG) 140 MEQ/L 134-147 N POTASSIUM (test code = K/ABG) 4.2 MEQ/L 3.4-5.0 N CHLORIDE (test code = CL/ABG) 105 MEQ/L 100-108 N CREATININE ABG (test code = CREAABG) 1.6 mg/dL 0.6-1.0 H POC IONIZED CALCIUM (test co de = POCCA) 1.32 MMOL/L 1.12-1.32 N POC GLUCOSE (test code = POCGLU) 193 MG/DL 70-110 H HEMOGLOBIN [id number] 15:23:00* Test Item Value Reference Range Interpretation Comme nts HEMOGLOBIN ABG (test code = HGB/ABG) 7.8 G/DL 11.0-15.0 L [id number] 15:23:00* Test Item Value Reference Range Interpretation Comme nts HEMATOCRIT (test code = HCT/ABG) 23 % 33.0-45.0 L POC LACTIC [id number] 15:23:00* Test Item Value Reference Range Interpretation Comme nts POC LACTIC ACID (test code = POCLAC) 0.9 mmol/l 0.9-1.7 N POC ARTERIAL BLOOD [id number] 12:31:00* Test Item Value Reference Range Interpretation Comme nts POC ARTERIAL BLOOD GAS PH (t est code = POCPHA) 7.227 7.35-7.45 LL POC ARTERIAL BLOOD GAS PCO2 (test code = EIMNII9P) 65.9 mmHg 35.0-45 HH POC TCO2 ARTERIAL (test code = POCTCO2) 29.4 POC ARTERIAL BLOOD GAS PO2 ( test code = WFHUE2Y) 47.8 mmHg 80-100.0 LL POC HCO3 ARTERIAL (test code = QRWWEM9Q) 27.4 MMOL/L 22.0-26.0 H POC BASE EXCESS (test code = POCBEA) -0.2 MMOL/L -4.0-4.0 N POC O2 SATURATION (test code = POCO2S) 73.8 % 90-100 L FIO2 (test code = FIO2A) 100 % PaO2/FiO2 (test code = WID9HKO0) 47.80 mm/Hg ABG DELIVERY (test code = MAAME) Vapotherm ABG SITE (test code = SITEA) Art Line AMRTIN'S TEST (test code = ALLENS) N/A BASIC METABOLIC [id number] 12:31:00* Test Item Value Reference Range Interpretation Comme nts SODIUM (test code = NA/ABG) 143 MEQ/L 134-147 N POTASSIUM (test code = K/ABG) 4.2 MEQ/L 3.4-5.0 N CHLORIDE (test code = CL/ABG) 106 MEQ/L 100-108 N CREATININE ABG (test code = CREAABG) 1.7 mg/dL 0.6-1.0 H POC IONIZED CALCIUM (test co de = POCCA) 1.40 MMOL/L 1.12-1.32 H POC GLUCOSE (test code = POCGLU) 139 MG/DL 70-110 H HEMOGLOBIN [id number] 12:31:00* Test Item Value Reference Range Interpretation Comme nts HEMOGLOBIN ABG (test code = HGB/ABG) 8.7 G/DL 11.0-15.0 L [id number] 12:31:00* Test Item Value Reference Range Interpretation Comme nts HEMATOCRIT (test code = HCT/ABG) 26 % 33.0-45.0 L POC LACTIC [id number] 12:31:00* Test Item Value Reference Range Interpretation Comme nts POC LACTIC ACID (test code = POCLAC) 0.8 mmol/l 0.9-1.7 L [id number] 11:49:00* Test Item Value Reference Range Interpretation Comme nts PHOSPHOROUS (test code = PHOS) 4.5 MG/DL 2.5-4.9 N CALCIUM [id number] 09:46:00* Test Item Value Reference Range Interpretation Comme nts CALCIUM IONIZED (test code = TYREE) 1.17 MMOL/L 1.09-1.30 N GLUCOSE [id number] 08:28:00* Test Item Value Reference Range Interpretation Comme nts GLUCOSE BEDSIDE (test code = GLUBED) 114 MG/DL 70-110 H Performed by cer tified fondant machine operator at [facility] GLUCOSE [id number] 04:20:00* Test Item Value Reference Range Interpretation Comme nts GLUCOSE BEDSIDE (test code = GLUBED) 113 MG/DL 70-110 H Performed by cer tified fondant machine operator at [facility] BASIC METABOLIC [id number] 03:00:00* Test Item Value Reference Range Interpretation Comme nts SODIUM (test code = NA) 145 mEq/L 134-147 N POTASSIUM (test code = K) 4.3 mEq/L 3.4-5.0 N CHLORIDE (test code = CL) 107 mEq/L 100-108 N CARBON DIOXIDE (test code = CO2) 26 mEq/l 21-33 N ANION GAP (test code = GAP) 16 0-20 N GLUCOSE (test code = GLU) 117 mg/dL 70-110 H BLOOD UREA NITROGEN (test code = BUN) 30 mg/dL 7-18 H GLOMERULAR FILTRATION RATE (test code = GFR) 31.2 70-80 L Units of measure = ml/min/1.73 m2 CREATININE (test code = CREAT) 1.6 mg/dL 0.6-1.3 H CALCIUM (test code = CA) 10.2 mg/dL 8.0-10.5 N COMMENTS: POD #1HEPATIC FUNCTION [id number] 03:00:00* Test Item Value Reference Range Interpretation Comme nts TOTAL PROTEIN (test code = PROT) 7.1 g/dL 6.4-8.2 ALBUMIN (test code = ALB) 4.60 g/dL 3.4-5.0 N BILIRUBIN TOTAL (test code = BILT) 0.50 mg/dL 0.0-1.0 N BILIRUBIN DIRECT (test code = BILD) 0.30 MG/DL 0.0-0.30 N BILIRUBIN INDIRECT (test cod e = BILIND) 0.20 MG/DL SGOT/AST (test code = AST) 32 IUnit/L 15-37 N SGPT/ALT (test code = ALT) 12 IUnit/L 30-65 L ALKALINE PHOSPHATASE TOTAL ( test code = ALKP) 50 IUnit/L 20-125 N COMMENTS: POD #[id number] 03:00:00* Test Item Value Reference Range Interpretation Comme nts MAGNESIUM (test code = MAG) 2.41 mg/dL 1.80-2.40 H COMMENTS: POD #1CBC W/AUTO [id number] 02:32:00* Test Item Value Reference Range Interpretation Comme nts WHITE BLOOD CELL (test code = WBC) 9.2 x10 3/uL 4.5-11.0 N RED BLOOD CELL (test code = RBC) 2.23 x10 6/uL 3.54-5.02 L HEMOGLOBIN (test code = HGB) 8.2 g/dL 11.0-15.0 L HEMATOCRIT (test code = HCT) 24.8 % 33.0-45.0 L MEAN CELL VOLUME (test code = MCV) 111.2 fL 81.0-99.0 H MEAN CELL HGB (test code = MCH) 36.8 pg 27.0-33.0 H MEAN CELL HGB CONCETRATION (test code = MCHC) 33.1 g/dL 33.0-37.0 N RED CELL DISTRIBUTION WIDTH CV (test code = RDW) 16.1 % 11.5-14.5 H RED CELL DISTRIBUTION WIDTH SD (test code = RDW-SD) 65.6 fL 37.0-54.0 H PLATELET COUNT (test code = PLT) 71 x10 3/uL 150-400 L IMMATURE PLATELET FRACTION (test code = IPF) 8.9 % 0.9-11.2 N MEAN PLATELET VOLUME (test c ode = MPV) 12.2 fL 7.0-9.0 H NEUTROPHIL % (test code = NT%) 88.2 % 56.0-77.0 H IMMATURE GRANULOCYTE % (test code = IG%) 0.8 % 0.0-2.0 N LYMPHOCYTE % (test code = LY%) 2.9 % 14.0-32.0 L MONOCYTE % (test code = MO%) 7.9 % 4.8-9.0 N EOSINOPHIL % (test code = EO%) 0.1 % 0.3-3.7 L BASOPHIL % (test code = BA%) 0.1 % 0.0-2.0 N NUCLEATED RBC % (test code = NRBC%) 0.0 % 0-0 N NEUTROPHIL # (test code = NT#) 8.12 x10 3/uL 2.0-7.6 H IMMATURE GRANULOCYTE # (test code = IG#) 0.07 x10 3/uL 0.00-0.03 H LYMPHOCYTE # (test code = LY#) 0.27 x10 3/uL 1.0-3.8 L MONOCYTE # (test code = MO#) 0.73 x10 3/uL 0.1-0.8 N EOSINOPHIL # (test code = EO#) 0.01 x10 3/uL 0.0-0.2 N BASOPHIL # (test code = BA#) 0.01 x10 3/uL 0.0-0.2 N NUCLEATED RBC # (test code = NRBC#) 0.00 x10 3/uL 0.0-0.1 N MANUAL DIFF REQUIRED (test c ode = MDIFF) NO POC ARTERIAL BLOOD [id number] 02:12:00* Test Item Value Reference Range Interpretation Comme nts POC ARTERIAL BLOOD GAS PH (t est code = POCPHA) 7.341 7.35-7.45 L POC ARTERIAL BLOOD GAS PCO2 (test code = YABSLV9N) 50.1 mmHg 35.0-45 HH POC TCO2 ARTERIAL (test code = POCTCO2) 28.7 POC ARTERIAL BLOOD GAS PO2 ( test code = PSMZH4S) 95.7 mmHg 80-100.0 N POC HCO3 ARTERIAL (test code = PEDZAC2A) 27.1 MMOL/L 22.0-26.0 H POC BASE EXCESS (test code = POCBEA) 1.4 MMOL/L -4.0-4.0 N POC O2 SATURATION (test code = POCO2S) 96.8 % 90-100 N FIO2 (test code = FIO2A) 60 % PaO2/FiO2 (test code = KOO8YCC9) 159.50 mm/Hg ABG DELIVERY (test code = MAAME) BiPAP ABG VENT RESP RATE (test cod e = RRA) 25 /MIN ABG TEMPERATURE (test code = TEMPA) 98.7 F ABG SITE (test code = SITEA) Art Line BASIC METABOLIC [id number] 02:12:00* Test Item Value Reference Range Interpretation Comme nts SODIUM (test code = NA/ABG) 143 MEQ/L 134-147 N POTASSIUM (test code = K/ABG) 4.1 MEQ/L 3.4-5.0 N CHLORIDE (test code = CL/ABG) 107 MEQ/L 100-108 N CREATININE ABG (test code = CREAABG) 1.8 mg/dL 0.6-1.0 H POC IONIZED CALCIUM (test co de = POCCA) 1.36 MMOL/L 1.12-1.32 H POC GLUCOSE (test code = POCGLU) 113 MG/DL 70-110 H HEMOGLOBIN [id number] 02:12:00* Test Item Value Reference Range Interpretation Comme nts HEMOGLOBIN ABG (test code = HGB/ABG) 8.4 G/DL 11.0-15.0 L [id number] 02:12:00* Test Item Value Reference Range Interpretation Comme nts HEMATOCRIT (test code = HCT/ABG) 25 % 33.0-45.0 L POC LACTIC [id number] 02:12:00* Test Item Value Reference Range Interpretation Comme nts POC LACTIC ACID (test code = POCLAC) 0.8 mmol/l 0.9-1.7 L CREATININE [id number] 01:08:00* Test Item Value Reference Range Interpretation Comme nts CREATININE ABG (test code = CREAABG) 1.4 mg/dL 0.6-1.0 H HEMOGLOBIN [id number] 01:08:00* Test Item Value Reference Range Interpretation Comme nts HEMOGLOBIN ABG (test code = HGB/ABG) 5.9 G/DL 11.0-15.0 L [id number] 01:08:00* Test Item Value Reference Range Interpretation Comme nts HEMATOCRIT (test code = HCT/ABG) 17 % 33.0-45.0 L POC VENOUS BLOOD [id number] 01:08:00* Test Item Value Reference Range Interpretation Comme nts POC VENOUS BLOOD GAS PH (ny t code = POCPHV) 7.329 7.33-7.45 L POC VENOUS BLOOD GAS PCO2 (t est code = XGTFVU7R) 39.5 mmHg 43-47 L POC VENOUS BLOOD GAS PO2 (te st code = SBVCO5C) 33.3 mmHG 10-50 N POC TCO2 VENOUS (test code = QTVFWB4M) 22.0 POC HCO3 VENOUS (test code = XUGYAM6Z) 20.8 MMOL/L 22-27 L POC BASE EXCESS VENOUS (test code = POCBEV) -5.2 MMOL/L -4.0-4.0 L POC O2 SATURATION VENOUS (te st code = MSEC4UY) 60.0 % 60-80 N VENOUS BLOOD GAS FIO2 (test code = FIO2V) 60 % VENOUS BLOOD GAS DELIVERY (t est code = DELV) BiPAP VENOUS BLOOD GAS TEMP (test code = TEMPV) 98.6 F VENOUS BLOOD GAS SITE (test code = SITEV) Tj Grant - XR CHEST 1 [id number] 00:00:00 [facility] 1945 Sex: F FAX: Jeffry Pennington MD [phone] [place]: St: ADM FAX: Dong Christiansen MD [phone] FAX: Solange Sawyer MD [phone] FAX: Colt Aguillon MD [phone] Name: KIAH GILES [facility] : 1945 Age/S: 76/F [address] [place] [address] Unit #: [id number] Loc: G.[address] [place] [address] Phys: Solange Mohamud MD Acct: [id number] Dis Date: Status: ADM IN PHONE #: [phone] Exam Date: 12/21/2021 0647 FAX #: [phone] Reason: CONFIRM CHEST TUBE LOCATION EXAMS: CPT CODE: [id number] XR CHEST1 V 33216 PROCEDURE INFORMATION: Exam: XR Chest Exam date and time: 12/21/2021 5:41 AM Age: 76 years old Clinical indication: Device placement; Chest tube; Additional info: Confirm chest tube location TECHNIQUE: Imaging protocol: Radiologic exam of the chest. Views: 1 view. COMPARISON: CR XR [id number] 12/20/2021 5:40 AM FINDINGS: Tubes, catheters and devices: Support apparatus is unchanged in position. Lungs: Stable bilateral airspace opacities. Pleural spaces: Stable bilateral pleural effusions. Heart/Mediastinum: Stable cardiomediastinal silhouette. Bones/joints: Unchanged osseous structures. IMPRESSION: Stable examination. at 0700 Reported and signed by: Shemar Barnes M.D. CC: Jeffry More MD; Dong Fuchs MD; Solange Mohamud MD; Colt Vail MD Technologist: Shell Min, RT(R); Debbie Fuentes RT(R)Trnscrd Date/Time/By: 12/21/2021 (699) : By: [email or web address] Orig Print D/T: S: 12/21/2021 (699) PAGE 1 Signed Report- US RETROPERITONEAL [id number] 00:00:00 [facility] 1945 Sex: F Name: KIAH GILES [facility] : 1945 Age/S: 76 / F [address] [place] [address] Unit #: [id number] Loc: [place] [address] Phys: Jd Alva MD Acct: [id number] Dis Date: Status: ADM IN PHONE #: [phone] Exam Date: 12/21/2021 1800 FAX #: [phone] Reason: MARCELLO EXAMS: CPT CODE: [id number] US RETROPERITONEAL COM [id number] PROCEDURE INFORMATION: Exam: US Retroperitoneal; Complete; Kidneysand Bladder Exam date and time: 12/21/2021 5:39 [...] in length. Left kidney: Left kidney is alsopartially obscured measuring approximately 12.4 cm in length with normal parenchymal echogenicity without hydronephrosis or cortical thinning appreciated. Aorta: The abdominal aorta and IVC are completely obscured due to overlying support tubes and lines. Urinary bladder: The bladder is not visualized and likely empty. Other findings: Patient body habitus limits evaluation. IMPRESSION: Limited exam. No sonographic abnormality of the kidneys. Electronically Signed by Cheng Chavez on 12/21/2021 at 1927 Reported and signed by: Haris Chavez M.D. CC: Jeffry More MD; Dong Fuchs MD; Jd Alva MD; Colt Vail MD Technologist: Vivien Linares RDMS() Trnscb Date/Time: 12/21/2021 (1926) [email or web address] Orig Print D/T: S: 12/21/2021 (1927) Probe: PAGE 1 Signed Report GLUCOSE [id number] 22:19:00* Test Item Value Reference Range Interpretation Comme nts GLUCOSE BEDSIDE (test code = GLUBED) 126 MG/DL 70-110 H Performed by anna jacobs fondant machine operator at [facility] BASIC METABOLIC [id number] 21:49:00* Test Item Value Reference Range Interpretation Comme nts SODIUM (test code = NA) 145 mEq/L 134-147 N POTASSIUM (test code = K) 4.4 mEq/L 3.4-5.0 N CHLORIDE (test code = CL) 108 mEq/L 100-108 N CARBON DIOXIDE (test code = CO2) 27 mEq/l 21-33 N ANION GAP (test code = GAP) 14 0-20 N GLUCOSE (test code = GLU) 130 mg/dL 70-110 H BLOOD UREA NITROGEN (test code = BUN) 29 mg/dL 7-18 H GLOMERULAR FILTRATION RATE (test code = GFR) 27.2 70-80 L Units of measure = ml/min/1.73 m2 CREATININE (test code = CREAT) 1.8 mg/dL 0.6-1.3 H CALCIUM (test code = CA) 9.8 mg/dL 8.0-10.5 N POC ARTERIAL BLOOD [id number] 21:23:00* Test Item Value Reference Range Interpretation Comme nts POC ARTERIAL BLOOD GAS PH (t est code = POCPHA) 7.328 7.35-7.45 L POC ARTERIAL BLOOD GAS PCO2 (test code = IOBTLN1A) 50.9 mmHg 35.0-45 HH POC TCO2 ARTERIAL (test code = POCTCO2) 28.3 POC ARTERIAL BLOOD GAS PO2 ( test code = BYNHS7J) 89.7 mmHg 80-100.0 N POC HCO3 ARTERIAL (test code = APOUKE2J) 26.7 MMOL/L 22.0-26.0 H POC BASE EXCESS (test code = POCBEA) 0.8 MMOL/L -4.0-4.0 N POC O2 SATURATION (test code = POCO2S) 96.0 % 90-100 N FIO2 (test code = FIO2A) 60 % PaO2/FiO2 (test code = XAH4JKI5) 149.50 mm/Hg ABG DELIVERY (test code = MAAME) BiPAP ABG VENT RESP RATE (test cod e = RRA) 25 /MIN ABG TIDAL VOLUME (test code = TVA) 550 ml ABG TEMPERATURE (test code = TEMPA) 98.7 F ABG SITE (test code = SITEA) Art Line BASIC METABOLIC [id number] 21:23:00* Test Item Value Reference Range Interpretation Comme nts SODIUM (test code = NA/ABG) 142 MEQ/L 134-147 N POTASSIUM (test code = K/ABG) 4.2 MEQ/L 3.4-5.0 N CHLORIDE (test code = CL/ABG) 107 MEQ/L 100-108 N CREATININE ABG (test code = CREAABG) 2.0 mg/dL 0.6-1.0 H POC IONIZED CALCIUM (test co de = POCCA) 1.32 MMOL/L 1.12-1.32 N POC GLUCOSE (test code = POCGLU) 128 MG/DL 70-110 H HEMOGLOBIN [id number] 21:23:00* Test Item Value Reference Range Interpretation Comme nts HEMOGLOBIN ABG (test code = HGB/ABG) 7.8 G/DL 11.0-15.0 L [id number] 21:23:00* Test Item Value Reference Range Interpretation Comme nts HEMATOCRIT (test code = HCT/ABG) 23 % 33.0-45.0 L POC LACTIC [id number] 21:23:00* Test Item Value Reference Range Interpretation Comme nts POC LACTIC ACID (test code = POCLAC) 0.6 mmol/l 0.9-1.7 L GLUCOSE [id number] 19:21:00* Test Item Value Reference Range Interpretation Comme nts GLUCOSE BEDSIDE (test code = GLUBED) 136 MG/DL 70-110 H Performed by cer tified fondant machine operator at [facility] CBC W/AUTO [id number] 17:35:00* Test Item Value Reference Range Interpretation Comme nts WHITE BLOOD CELL (test code = WBC) 8.0 x10 3/uL 4.5-11.0 N RED BLOOD CELL (test code = RBC) 2.14 x10 6/uL 3.54-5.02 L HEMOGLOBIN (test code = HGB) 7.5 g/dL 11.0-15.0 L HEMATOCRIT (test code = HCT) 23.7 % 33.0-45.0 L MEAN CELL VOLUME (test code = MCV) 110.7 fL 81.0-99.0 H MEAN CELL HGB (test code = MCH) 35.0 pg 27.0-33.0 H MEAN CELL HGB CONCETRATION (test code = MCHC) 31.6 g/dL 33.0-37.0 L RED CELL DISTRIBUTION WIDTH CV (test code = RDW) 15.9 % 11.5-14.5 H RED CELL DISTRIBUTION WIDTH SD (test code = RDW-SD) 64.4 fL 37.0-54.0 H PLATELET COUNT (test code = PLT) 64 x10 3/uL 150-400 L IMMATURE PLATELET FRACTION (test code = IPF) 8.7 % 0.9-11.2 N MEAN PLATELET VOLUME (test c ode = MPV) 11.3 fL 7.0-9.0 H NEUTROPHIL % (test code = NT%) 87.2 % 56.0-77.0 H IMMATURE GRANULOCYTE % (test code = IG%) 0.6 % 0.0-2.0 N LYMPHOCYTE % (test code = LY%) 2.4 % 14.0-32.0 L MONOCYTE % (test code = MO%) 9.7 % 4.8-9.0 H EOSINOPHIL % (test code = EO%) 0.1 % 0.3-3.7 L BASOPHIL % (test code = BA%) 0.0 % 0.0-2.0 N NUCLEATED RBC % (test code = NRBC%) 0.3 % 0-0 H NEUTROPHIL # (test code = NT#) 6.93 x10 3/uL 2.0-7.6 N IMMATURE GRANULOCYTE # (test code = IG#) 0.05 x10 3/uL 0.00-0.03 H LYMPHOCYTE # (test code = LY#) 0.19 x10 3/uL 1.0-3.8 L MONOCYTE # (test code = MO#) 0.77 x10 3/uL 0.1-0.8 N EOSINOPHIL # (test code = EO#) 0.01 x10 3/uL 0.0-0.2 N BASOPHIL # (test code = BA#) 0.00 x10 3/uL 0.0-0.2 N NUCLEATED RBC # (test code = NRBC#) 0.02 x10 3/uL 0.0-0.1 N MANUAL DIFF REQUIRED (test c ode = MDIFF) NO POC ARTERIAL BLOOD [id number] 17:08:00* Test Item Value Reference Range Interpretation Comme nts POC ARTERIAL BLOOD GAS PH (t est code = POCPHA) 7.318 7.35-7.45 L POC ARTERIAL BLOOD GAS PCO2 (test code = ZCOSAT9Y) 55.5 mmHg 35.0-45 HH POC TCO2 ARTERIAL (test code = POCTCO2) 30.2 POC ARTERIAL BLOOD GAS PO2 ( test code = CZOUT9I) 95.3 mmHg 80-100.0 N POC HCO3 ARTERIAL (test code = [id number]) 28.5 MMOL/L 22.0-26.0 HH POC BASE EXCESS (test code = POCBEA) 2.4 MMOL/L -4.0-4.0 N POC O2 SATURATION (test code = POCO2S) 96.5 % 90-100 N FIO2 (test code = FIO2A) 60 % PaO2/FiO2 (test code = [id number]) 158.83 mm/Hg ABG DELIVERY (test code = MAAME) BiPAP ABG PATIENT RESP RATE (test code = RRPATA) 25 /MIN ABG VENT RESP RATE (test cod e = RRA) 25 /MIN ABG TIDAL VOLUME (test code = TVA) 550 ml INSPIRATORY TIME (test code = IT) 0.6 ABG PEEP (test code = PEEPA) 6 cmH2O ABG SITE (test code = SITEA) Art Line MARTIN'S TEST (test code = ALLENS) N/A BASIC METABOLIC [id number] 17:08:00* Test Item Value Reference Range Interpretation Comme nts SODIUM (test code = NA/ABG) 142 MEQ/L 134-147 N POTASSIUM (test code = K/ABG) 4.3 MEQ/L 3.4-5.0 N CHLORIDE (test code = CL/ABG) 108 MEQ/L 100-108 N CREATININE ABG (test code = CREAABG) 1.9 mg/dL 0.6-1.0 H POC IONIZED CALCIUM (test co de = POCCA) 1.34 MMOL/L 1.12-1.32 H POC GLUCOSE (test code = POCGLU) 136 MG/DL 70-110 H HEMOGLOBIN [id number] 17:08:00* Test Item Value Reference Range Interpretation Comme nts HEMOGLOBIN ABG (test code = HGB/ABG) 7.5 G/DL 11.0-15.0 L [id number] 17:08:00* Test Item Value Reference Range Interpretation Comme nts HEMATOCRIT (test code = HCT/ABG) 22 % 33.0-45.0 L POC LACTIC [id number] 17:08:00* Test Item Value Reference Range Interpretation Comme nts POC LACTIC ACID (test code = POCLAC) 0.7 mmol/l 0.9-1.7 L GLUCOSE [id number] 16:30:00* Test Item Value Reference Range Interpretation Comme nts GLUCOSE BEDSIDE (test code = GLUBED) 139 MG/DL 70-110 H Performed by anna jacobs fondant machine operator at [facility] POC ARTERIAL BLOOD [id number] 15:19:00* Test Item Value Reference Range Interpretation Comme nts POC ARTERIAL BLOOD GAS PH (t est code = POCPHA) 7.318 7.35-7.45 L POC ARTERIAL BLOOD GAS PCO2 (test code = DWATYC8D) 52.0 mmHg 35.0-45 HH POC TCO2 ARTERIAL (test code = POCTCO2) 28.3 POC ARTERIAL BLOOD GAS PO2 ( test code = SISGN2Z) 244.0 mmHg 80-100.0 HH POC HCO3 ARTERIAL (test code = [id number]) 26.7 MMOL/L 22.0-26.0 H POC BASE EXCESS (test code = POCBEA) 0.6 MMOL/L -4.0-4.0 N POC O2 SATURATION (test code = POCO2S) 99.8 % 90-100 N FIO2 (test code = FIO2A) 100 % PaO2/FiO2 (test code = WEA4MQS3) 244.00 mm/Hg ABG DELIVERY (test code = MAAME) BiPAP ABG PATIENT RESP RATE (test code = RRPATA) 25 /MIN ABG VENT RESP RATE (test cod e = RRA) 25 /MIN ABG TIDAL VOLUME (test code = TVA) 550 ml INSPIRATORY TIME (test code = IT) 0.6 ABG PEEP (test code = PEEPA) 6 cmH2O ABG SITE (test code = SITEA) Art Line MARTIN'S TEST (test code = ALLENS) N/A BASIC METABOLIC [id number] 15:19:00* Test Item Value Reference Range Interpretation Comme nts SODIUM (test code = NA/ABG) 143 MEQ/L 134-147 N POTASSIUM (test code = K/ABG) 4.2 MEQ/L 3.4-5.0 N CHLORIDE (test code = CL/ABG) 109 MEQ/L 100-108 H CREATININE ABG (test code = CREAABG) 1.9 mg/dL 0.6-1.0 H POC IONIZED CALCIUM (test co de = POCCA) 1.33 MMOL/L 1.12-1.32 H POC GLUCOSE (test code = POCGLU) 144 MG/DL 70-110 H HEMOGLOBIN [id number] 15:19:00* Test Item Value Reference Range Interpretation Comme nts HEMOGLOBIN ABG (test code = HGB/ABG) 9.8 G/DL 11.0-15.0 L [id number] 15:19:00* Test Item Value Reference Range Interpretation Comme nts HEMATOCRIT (test code = HCT/ABG) 29 % 33.0-45.0 L POC LACTIC [id number] 15:19:00* Test Item Value Reference Range Interpretation Comme nts POC LACTIC ACID (test code = POCLAC) 0.5 mmol/l 0.9-1.7 L GLUCOSE [id number] 14:02:00* Test Item Value Reference Range Interpretation Comme nts GLUCOSE BEDSIDE (test code = GLUBED) 167 MG/DL 70-110 H Performed by cer tified fondant machine operator at [facility] BASIC METABOLIC [id number] 12:24:00* Test Item Value Reference Range Interpretation Comme nts SODIUM (test code = NA) 144 mEq/L 134-147 N POTASSIUM (test code = K) 4.6 mEq/L 3.4-5.0 N CHLORIDE (test code = CL) 109 mEq/L 100-108 H CARBON DIOXIDE (test code = CO2) 27 mEq/l 21-33 N ANION GAP (test code = GAP) 13 0-20 N GLUCOSE (test code = GLU) 182 mg/dL 70-110 H BLOOD UREA NITROGEN (test code = BUN) 26 mg/dL 7-18 H GLOMERULAR FILTRATION RATE (test code = GFR) 29.1 70-80 L Units of measure = ml/min/1.73 m2 CREATININE (test code = CREAT) 1.7 mg/dL 0.6-1.3 H CALCIUM (test code = CA) 9.2 mg/dL 8.0-10.5 N URINALYSIS [id number] 12:23:00* Test Item Value Reference Range Interpretation Comme nts UA COLOR (test code = COLU) YELLOW YEL/STRAW UA APPEARANCE (test code = APPU) CLOUDY CLEAR A UA GLUCOSE DIPSTICK (test co de = DGLUU) NEGATIVE NEGATIVE UA BILIRUBIN DIPSTICK (test code = BILU) NEGATIVE NEGATIVE UA KETONE DIPSTICK (test cod e = KETU) 1+ NEGATIVE A UA SPECIFIC GRAVITY (test co de = SGU) 1.030 1.005-1.030 N UA BLOOD DIPSTICK (test code = LALY) 4+ NEGATIVE A UA PH DIPSTICK (test code = CLEMENTINA) 5.0 5.0-7.0 N UA PROTEIN DIPSTICK (test co de = PROU) 2+ NEGATIVE A UA UROBILINIOGEN DIPSTICK (t est code = URO) 0.2 mg/dL 0.2-1.0 UA NITRITE DIPSTICK (test co de = SAMARIA) NEGATIVE NEGATIVE UA LEUKOCYTE ESTERASE DIPSTI CK (test code = LEUU) 3+ NEGATIVE A UR SODIUM [id number] 12:23:00* Test Item Value Reference Range Interpretation Comme nts UR SODIUM RANDOM (test code = JESUS) < 10 MEQ/L The Reference Ra nge and Method Performance specificationshave not been established for this fluid. The test resultshould be correlated into the clinical context forinterpretation. UR CREATININE [id number] 12:23:00* Test Item Value Reference Range Interpretation Comme nts UR CREATININE RANDOM (test code = CREATU) 116.2 mg/dL The Reference Ra nge and Method Performance specificationshave not been established for this fluid. The test resultshould be correlated into the clinical context forinterpretation. GLUCOSE [id number] 12:13:00* Test Item Value Reference Range Interpretation Comme nts GLUCOSE BEDSIDE (test code = GLUBED) 180 MG/DL 70-110 H Performed by cer arlene fondant machine operator at [facility] POC ARTERIAL BLOOD [id number] 12:10:00* Test Item Value Reference Range Interpretation Comme nts POC ARTERIAL BLOOD GAS PH (t est code = POCPHA) 7.291 7.35-7.45 LL POC ARTERIAL BLOOD GAS PCO2 (test code = YZGCJF5B) 59.2 mmHg 35.0-45 HH POC TCO2 ARTERIAL (test code = POCTCO2) 30.7 POC ARTERIAL BLOOD GAS PO2 ( test code = GVSAZ2H) 137.8 mmHg 80-100.0 H POC HCO3 ARTERIAL (test code = EVPZZE7Z) 28.8 MMOL/L 22.0-26.0 HH POC BASE EXCESS (test code = POCBEA) 2.1 MMOL/L -4.0-4.0 N POC O2 SATURATION (test code = POCO2S) 98.8 % 90-100 N FIO2 (test code = FIO2A) 100 % PaO2/FiO2 (test code = HOQ2QBS1) 137.80 mm/Hg ABG DELIVERY (test code = MAAME) CPAP ABG VENT RESP RATE (test cod e = RRA) 25 /MIN ABG TIDAL VOLUME (test code = TVA) 550 ml ABG PEEP (test code = PEEPA) 6 cmH2O ABG PRESSURE SUPPORT (test c ode = PSABG) 20 cmH2O ABG TEMPERATURE (test code = TEMPA) 97.3 F ABG SITE (test code = SITEA) Art Line BASIC METABOLIC [id number] 12:10:00* Test Item Value Reference Range Interpretation Comme nts SODIUM (test code = NA/ABG) 142 MEQ/L 134-147 N POTASSIUM (test code = K/ABG) 4.5 MEQ/L 3.4-5.0 N CHLORIDE (test code = CL/ABG) 108 MEQ/L 100-108 N CREATININE ABG (test code = CREAABG) 2.0 mg/dL 0.6-1.0 H POC IONIZED CALCIUM (test co de = POCCA) 1.36 MMOL/L 1.12-1.32 H POC GLUCOSE (test code = POCGLU) 175 MG/DL 70-110 H HEMOGLOBIN [id number] 12:10:00* Test Item Value Reference Range Interpretation Comme nts HEMOGLOBIN ABG (test code = HGB/ABG) 8.3 G/DL 11.0-15.0 L [id number] 12:10:00* Test Item Value Reference Range Interpretation Comme nts HEMATOCRIT (test code = HCT/ABG) 24 % 33.0-45.0 L POC LACTIC [id number] 12:10:00* Test Item Value Reference Range Interpretation Comme nts POC LACTIC ACID (test code = POCLAC) 0.6 mmol/l 0.9-1.7 L POC ARTERIAL BLOOD [id number] 09:48:00* Test Item Value Reference Range Interpretation Comme nts POC ARTERIAL BLOOD GAS PH (t est code = POCPHA) 7.239 7.35-7.45 LL POC ARTERIAL BLOOD GAS PCO2 (test code = RFFQIL3W) 67.0 mmHg 35.0-45 HH POC TCO2 ARTERIAL (test code = POCTCO2) 30.7 POC ARTERIAL BLOOD GAS PO2 ( test code = AQYOO2C) 90.6 mmHg 80-100.0 N POC HCO3 ARTERIAL (test code = KKSFIX0U) 28.6 MMOL/L 22.0-26.0 HH POC BASE EXCESS (test code = POCBEA) 1.2 MMOL/L -4.0-4.0 N POC O2 SATURATION (test code = POCO2S) 94.9 % 90-100 N FIO2 (test code = FIO2A) 100 % PaO2/FiO2 (test code = ZKF5LHK2) 90.60 mm/Hg ABG DELIVERY (test code = MAAME) BiPAP ABG VENT MODE (test code = MODEA) BiLevel ABG PATIENT RESP RATE (test code = RRPATA) 26 /MIN ABG VENT RESP RATE (test cod e = RRA) 26 /MIN INSPIRATORY TIME (test code = IT) 1 ABG PEEP (test code = PEEPA) 5 cmH2O ABG PRESSURE SUPPORT (test c ode = PSABG) 15 cmH2O ABG SITE (test code = SITEA) Art Line MARTIN'S TEST (test code = ALLENS) N/A BASIC METABOLIC [id number] 09:48:00* Test Item Value Reference Range Interpretation Comme nts SODIUM (test code = NA/ABG) 141 MEQ/L 134-147 N POTASSIUM (test code = K/ABG) 4.4 MEQ/L 3.4-5.0 N CHLORIDE (test code = CL/ABG) 110 MEQ/L 100-108 H CREATININE ABG (test code = CREAABG) 1.8 mg/dL 0.6-1.0 H POC IONIZED CALCIUM (test co de = POCCA) 1.28 MMOL/L 1.12-1.32 N POC GLUCOSE (test code = POCGLU) 170 MG/DL 70-110 H HEMOGLOBIN [id number] 09:48:00* Test Item Value Reference Range Interpretation Comme nts HEMOGLOBIN ABG (test code = HGB/ABG) 7.6 G/DL 11.0-15.0 L [id number] 09:48:00* Test Item Value Reference Range Interpretation Comme nts HEMATOCRIT (test code = HCT/ABG) 22 % 33.0-45.0 L POC LACTIC [id number] 09:48:00* Test Item Value Reference Range Interpretation Comme nts POC LACTIC ACID (test code = POCLAC) 0.8 mmol/l 0.9-1.7 L GLUCOSE [id number] 09:10:00* Test Item Value Reference Range Interpretation Comme nts GLUCOSE BEDSIDE (test code = GLUBED) 191 MG/DL 70-110 H Performed by cer tified fondant machine operator at [facility] BASIC METABOLIC [id number] 04:02:00* Test Item Value Reference Range Interpretation Comme nts SODIUM (test code = NA) 144 mEq/L 134-147 N POTASSIUM (test code = K) 4.8 mEq/L 3.4-5.0 N CHLORIDE (test code = CL) 108 mEq/L 100-108 N CARBON DIOXIDE (test code = CO2) 28 mEq/l 21-33 N ANION GAP (test code = GAP) 12 0-20 N GLUCOSE (test code = GLU) 179 mg/dL 70-110 H BLOOD UREA NITROGEN (test code = BUN) 21 mg/dL 7-18 H GLOMERULAR FILTRATION RATE (test code = GFR) 36.4 70-80 L Units of measure = ml/min/1.73 m2 CREATININE (test code = CREAT) 1.4 mg/dL 0.6-1.3 H CALCIUM (test code = CA) 9.4 mg/dL 8.0-10.5 N COMMENTS: POD #1HEPATIC FUNCTION [id number] 04:02:00* Test Item Value Reference Range Interpretation Comme nts TOTAL PROTEIN (test code = PROT) 6.1 g/dL 6.4-8.2 L ALBUMIN (test code = ALB) 4.30 g/dL 3.4-5.0 N BILIRUBIN TOTAL (test code = BILT) 0.60 mg/dL 0.0-1.0 BILIRUBIN DIRECT (test code = BILD) 0.40 MG/DL 0.0-0.30 H BILIRUBIN INDIRECT (test cod e = BILIND) 0.20 MG/DL SGOT/AST (test code = AST) 40 IUnit/L 15-37 H SGPT/ALT (test code = ALT) 8 IUnit/L 30-65 L ALKALINE PHOSPHATASE TOTAL ( test code = ALKP) 38 IUnit/L 20-125 N COMMENTS: POD #[id number] 04:02:00* Test Item Value Reference Range Interpretation Comme nts MAGNESIUM (test code = MAG) 2.32 mg/dL 1.80-2.40 N COMMENTS: POD #1PROTHROMBIN [id number] 03:45:00* Test Item Value Reference Range Interpretation Comme nts PROTHROMBIN TIME PATIENT (test code = PTP) 14.9 SECONDS 9.3-12.9 H INTERNATIONAL NORMAL RATIO (test code = INR) 1.3 0.8-1.2 H TARGET INR BY INDICATION Indication INR1. Prophylaxis of venous thrombosis 2.0 - 3.0 (orthopedic surgery), Prophylaxis of venous thrombosis (other than high-risk surgery), Treatment of Deep Vein Thrombosis/Pulmonary Embolism, Prevention of systemic embolism - Tissue heart valves, Acute Myocardial Infarction (to prevent systemic embolism), Valvular heart disease, Atrial Fibrillation, Bileaflet mechanical valve in aortic position.2. Mechanical prosthetic valves (high risk), 2.5 - 3.5 Presence of Lupus Anticoagulant or Antiphospholipid Antibodies, Prevention of systemic embolism - Acute Myocardial Infarction (to prevent recurrent infarct). THROMBOPLASTIN TIME [id number] 03:45:00* Test Item Value Reference Range Interpretation Comme nts THROMBOPLASTIN TIME PARTIAL (test code = PTT) 25.0 Seconds 25.0-39.5 N Therapeutic Rang e: 50.4 - 88.3 Seconds Effective 06/28/2018 [id number] 03:45:00* Test Item Value Reference Range Interpretation Comme nts FIBRINOGEN (test code = FIB) 278 MG/DL 160-450 N Excess administr ation of anticoagulants and/or FibrinDegradation Products may affect Fibrinogen value. CBC W/AUTO [id number] 03:36:00* Test Item Value Reference Range Interpretation Comme nts WHITE BLOOD CELL (test code = WBC) 7.1 x10 3/uL 4.5-11.0 N RED BLOOD CELL (test code = RBC) 2.03 x10 6/uL 3.54-5.02 L HEMOGLOBIN (test code = HGB) 7.2 g/dL 11.0-15.0 L HEMATOCRIT (test code = HCT) 22.6 % 33.0-45.0 L MEAN CELL VOLUME (test code = MCV) 111.3 fL 81.0-99.0 H MEAN CELL HGB (test code = MCH) 35.5 pg 27.0-33.0 H MEAN CELL HGB CONCETRATION (test code = MCHC) 31.9 g/dL 33.0-37.0 L RED CELL DISTRIBUTION WIDTH CV (test code = RDW) 16.0 % 11.5-14.5 H RED CELL DISTRIBUTION WIDTH SD (test code = RDW-SD) 65.0 fL 37.0-54.0 H PLATELET COUNT (test code = PLT) 65 x10 3/uL 150-400 L IMMATURE PLATELET FRACTION (test code = IPF) 8.3 % 0.9-11.2 N MEAN PLATELET VOLUME (test c ode = MPV) 11.2 fL 7.0-9.0 H NEUTROPHIL % (test code = NT%) 87.7 % 56.0-77.0 H IMMATURE GRANULOCYTE % (test code = IG%) 0.6 % 0.0-2.0 N LYMPHOCYTE % (test code = LY%) 3.5 % 14.0-32.0 L MONOCYTE % (test code = MO%) 8.1 % 4.8-9.0 N EOSINOPHIL % (test code = EO%) 0.0 % 0.3-3.7 L BASOPHIL % (test code = BA%) 0.1 % 0.0-2.0 N NUCLEATED RBC % (test code = NRBC%) 0.0 % 0-0 N NEUTROPHIL # (test code = NT#) 6.25 x10 3/uL 2.0-7.6 N IMMATURE GRANULOCYTE # (test code = IG#) 0.04 x10 3/uL 0.00-0.03 H LYMPHOCYTE # (test code = LY#) 0.25 x10 3/uL 1.0-3.8 L MONOCYTE # (test code = MO#) 0.58 x10 3/uL 0.1-0.8 N EOSINOPHIL # (test code = EO#) 0.00 x10 3/uL 0.0-0.2 N BASOPHIL # (test code = BA#) 0.01 x10 3/uL 0.0-0.2 N NUCLEATED RBC # (test code = NRBC#) 0.00 x10 3/uL 0.0-0.1 N MANUAL DIFF REQUIRED (test c ode = MDIFF) NO POC ARTERIAL BLOOD [id number] 03:22:00* Test Item Value Reference Range Interpretation Comme nts POC ARTERIAL BLOOD GAS PH (t est code = POCPHA) 7.278 7.35-7.45 LL POC ARTERIAL BLOOD GAS PCO2 (test code = XMUDHN9H) 66.1 mmHg 35.0-45 HH POC TCO2 ARTERIAL (test code = POCTCO2) 32.8 POC ARTERIAL BLOOD GAS PO2 ( test code = NTQWZ9W) 70.0 mmHg 80-100.0 L POC HCO3 ARTERIAL (test code = QHXQNX2G) 30.8 MMOL/L 22.0-26.0 HH POC BASE EXCESS (test code = POCBEA) 4.1 MMOL/L -4.0-4.0 H POC O2 SATURATION (test code = POCO2S) 90.4 % 90-100 N FIO2 (test code = FIO2A) 60 % PaO2/FiO2 (test code = LOA3ORA7) 116.66 mm/Hg ABG PEEP (test code = PEEPA) 5 cmH2O ABG TEMPERATURE (test code = TEMPA) 98.9 F ABG SITE (test code = SITEA) Art Line BASIC METABOLIC [id number] 03:22:00* Test Item Value Reference Range Interpretation Comme nts SODIUM (test code = NA/ABG) 142 MEQ/L 134-147 N POTASSIUM (test code = K/ABG) 4.6 MEQ/L 3.4-5.0 N CHLORIDE (test code = CL/ABG) 108 MEQ/L 100-108 N CREATININE ABG (test code = CREAABG) 1.4 mg/dL 0.6-1.0 H POC IONIZED CALCIUM (test co de = POCCA) 1.33 MMOL/L 1.12-1.32 H POC GLUCOSE (test code = POCGLU) 172 MG/DL 70-110 H HEMOGLOBIN [id number] 03:22:00* Test Item Value Reference Range Interpretation Comme nts HEMOGLOBIN ABG (test code = HGB/ABG) 7.2 G/DL 11.0-15.0 L [id number] 03:22:00* Test Item Value Reference Range Interpretation Comme nts HEMATOCRIT (test code = HCT/ABG) 21 % 33.0-45.0 L POC LACTIC [id number] 03:22:00* Test Item Value Reference Range Interpretation Comme nts POC LACTIC ACID (test code = POCLAC) 0.8 mmol/l 0.9-1.7 L - XR CHEST 1 [id number] 00:00:00 [facility] 1945 Sex: F FAX: Jeffry Pennington MD [phone] [place]: St: ADM FAX: Dong Christiansen MD [phone] FAX: René Blancas [phone] FAX: Colt Aguillon MD [phone] Name: KIAH GILES [facility] : 1945 Age/S: 76/F [address] [place] [address] Blvd Unit #: [id number] Loc: [address] [place] [address] Phys: René Romero MD Acct: [id number] Dis Date: Status: ADM IN PHONE #: [phone] Exam Date: 10/2021 0656 FAX #: [phone] Reason: Cardiac Surgery Post Op EXAMS: CPT CODE: [id number] XR CHEST1 V 43150 PROCEDURE INFORMATION: Exam: XR Chest Exam date and time: 12/20/2021 5:40 AM Age: 76 yearsold Clinical indication: Other: Cardiac surgery post op TECHNIQUE: Imaging protocol: Radiologic exam of the chest. Views: 1 view. COMPARISON: CR XR CHEST 1V 12/20/2021 12:08 AM FINDINGS: Tubes, catheters and devices: Right IJ catheter remains in place with [place] terminating in the region of themain pulmonary artery. Lungs: Persistent bibasilar pulmonary opacities. Preps mild pulmonary vascular congestion. Appearance is similar previous study. No new airspace disease. Pleural spaces: Likely small pleural effusions. No pneumothorax. Heart/Mediastinum: The heart is enlarged, unchanged. Status post median sternotomy. Pacer/ICD device and valve replacement noted. Mediastinal support drainsnoted. Bones/joints: Unchanged. Soft tissues: Unchanged IMPRESSION: Stable radiographic appearance of the chest. at 0713 Reported and signed by: Demian Berumen M.D. CC: Jeffry More MD; Dong Fuchs MD; René Romero MD; Colt Vail MD Technologist: Xenia Bashir, RT(R); Shell Min RT(R) TrnscrdDate/Time/By: 12/20/2021 (712) : By: [email or web address] Orig Print D/T: S: 12/20/2021 (712) PAGE 1 Signed Report- XR CHEST 1 [id number] 00:00:00 [facility] : 1945 Sex: F FAX: Jeffry Pennington MD [phone] [place]: St: ADM FAX: Dong Christiansen MD [phone] FAX: Javi Elizondo MD [phone] FAX: Colt Aguillon MD [phone] Name: KIAH GILES [facility] : 1945 Age/S: 76/F [address] [place] [address] Unit #: [id number] Loc: G.[address] [place] [address] Phys: Javi Elizondo MD Acct: [id number] Dis Date: Status: ADM IN PHONE #: [phone] Exam Date: 12/19/2021 0011FAX #: [phone] Reason: resp failurre, post MVR EXAMS: CPT CODE: [id number] XR CHEST 1 V [id number] PROCEDURE INFORMATION: Exam: XR Chest Exam date and time: 12/20/2021 12:08 AM Age: 76 years old Clinical indication: Other: Resp failurre, post mvr TECHNIQUE: Imaging protocol: Radiologic exam of the chest. Views: 1 view. COMPARISON: CR XR CHEST 1V 12/19/2021 1:17 PM FINDINGS: Tubes, catheters and jarrett grey: Support apparatus is unchanged in position. Lungs: Stable bilateral airspace opacities. Pleural spaces: Stable bilateral pleural effusions. Heart/Mediastinum: Stable cardiomediastinal silhouette. Bones/joints: Unchanged osseous structures. IMPRESSION: Stable examination. at 0142 Reported and signed by: Shemar Barnes M.D. CC: Jeffry More MD; Dong Fuchs MD; Javi Elizondo MD; Colt Vail MD Technologist: MAXIMILIANO [place]) Trnscrd Date/Time/By: 12/20/2021 (014) : By: [email or web address] Orig Print D/T: S: 12/20/2021 (0143) PAGE 1 Signed ReportBASIC METABOLIC [id number] 23:41:00* Test Item Value Reference Range Interpretation Comme nts SODIUM (test code = NA) 146 mEq/L 134-147 N POTASSIUM (test code = K) 4.8 mEq/L 3.4-5.0 CHLORIDE (test code = CL) 108 mEq/L 100-108 N CARBON DIOXIDE (test code = CO2) 29 mEq/l 21-33 N ANION GAP (test code = GAP) 14 0-20 N GLUCOSE (test code = GLU) 186 mg/dL 70-110 H BLOOD UREA NITROGEN (test code = BUN) 21 mg/dL 7-18 H GLOMERULAR FILTRATION RATE (test code = GFR) 48.0 70-80 L Units of measure = ml/min/1.73 m2 CREATININE (test code = CREAT) 1.1 mg/dL 0.6-1.3 CALCIUM (test code = CA) 9.1 mg/dL 8.0-10.5 N [id number] 23:41:00* Test Item Value Reference Range Interpretation Comme nts PHOSPHOROUS (test code = PHOS) 3.9 MG/DL 2.5-4.9 N [id number] 23:41:00* Test Item Value Reference Range Interpretation Comme nts MAGNESIUM (test code = MAG) 2.45 mg/dL 1.80-2.40 H CALCIUM [id number] 23:41:00* Test Item Value Reference Range Interpretation Comme nts CALCIUM IONIZED (test code = TYREE) 1.16 MMOL/L 1.09-1.30 N CBC W/AUTO [id number] 23:20:00* Test Item Value Reference Range Interpretation Comme nts WHITE BLOOD CELL (test code = WBC) 6.7 x10 3/uL 4.5-11.0 N RED BLOOD CELL (test code = RBC) 2.00 x10 6/uL 3.54-5.02 L HEMOGLOBIN (test code = HGB) 7.5 g/dL 11.0-15.0 L HEMATOCRIT (test code = HCT) 22.4 % 33.0-45.0 L MEAN CELL VOLUME (test code = MCV) 112.0 fL 81.0-99.0 H MEAN CELL HGB (test code = MCH) 37.5 pg 27.0-33.0 H MEAN CELL HGB CONCETRATION (test code = MCHC) 33.5 g/dL 33.0-37.0 N RED CELL DISTRIBUTION WIDTH CV (test code = RDW) 16.1 % 11.5-14.5 H RED CELL DISTRIBUTION WIDTH SD (test code = RDW-SD) 64.0 fL 37.0-54.0 H PLATELET COUNT (test code = PLT) 62 x10 3/uL 150-400 L IMMATURE PLATELET FRACTION (test code = IPF) 6.5 % 0.9-11.2 N MEAN PLATELET VOLUME (test c ode = MPV) 12.0 fL 7.0-9.0 H NEUTROPHIL % (test code = NT%) 89.4 % 56.0-77.0 H IMMATURE GRANULOCYTE % (test code = IG%) 0.4 % 0.0-2.0 N LYMPHOCYTE % (test code = LY%) 2.5 % 14.0-32.0 L MONOCYTE % (test code = MO%) 7.6 % 4.8-9.0 N EOSINOPHIL % (test code = EO%) 0.0 % 0.3-3.7 L BASOPHIL % (test code = BA%) 0.1 % 0.0-2.0 N NUCLEATED RBC % (test code = NRBC%) 0.0 % 0-0 N NEUTROPHIL # (test code = NT#) 5.95 x10 3/uL 2.0-7.6 N IMMATURE GRANULOCYTE # (test code = IG#) 0.03 x10 3/uL 0.00-0.03 N LYMPHOCYTE # (test code = LY#) 0.17 x10 3/uL 1.0-3.8 L MONOCYTE # (test code = MO#) 0.51 x10 3/uL 0.1-0.8 N EOSINOPHIL # (test code = EO#) 0.00 x10 3/uL 0.0-0.2 N BASOPHIL # (test code = BA#) 0.01 x10 3/uL 0.0-0.2 N NUCLEATED RBC # (test code = NRBC#) 0.00 x10 3/uL 0.0-0.1 N MANUAL DIFF REQUIRED (test c ode = MDIFF) NO POC ARTERIAL BLOOD [id number] 22:55:00* Test Item Value Reference Range Interpretation Comme nts POC ARTERIAL BLOOD GAS PH (t est code = POCPHA) 7.301 7.35-7.45 L POC ARTERIAL BLOOD GAS PCO2 (test code = [id number]) 61.1 mmHg 35.0-45 HH POC TCO2 ARTERIAL (test code = POCTCO2) 32.0 POC ARTERIAL BLOOD GAS PO2 ( test code = GGHST5B) 103.3 mmHg 80-100.0 H POC HCO3 ARTERIAL (test code = YAAEUK1W) 30.1 MMOL/L 22.0-26.0 HH POC BASE EXCESS (test code = POCBEA) 3.7 MMOL/L -4.0-4.0 N POC O2 SATURATION (test code = POCO2S) 97.0 % 90-100 N FIO2 (test code = FIO2A) 60 % PaO2/FiO2 (test code = [id number]) 172.16 mm/Hg ABG DELIVERY (test code = MAAME) BiPAP ABG PEEP (test code = PEEPA) 5 cmH2O ABG TEMPERATURE (test code = TEMPA) 98.8 F ABG SITE (test code = SITEA) Art Line BASIC METABOLIC [id number] 22:55:00* Test Item Value Reference Range Interpretation Comme nts SODIUM (test code = NA/ABG) 143 MEQ/L 134-147 N POTASSIUM (test code = K/ABG) 4.7 MEQ/L 3.4-5.0 N CHLORIDE (test code = CL/ABG) 108 MEQ/L 100-108 N CREATININE ABG (test code = CREAABG) 1.2 mg/dL 0.6-1.0 H POC IONIZED CALCIUM (test co de = POCCA) 1.29 MMOL/L 1.12-1.32 N POC GLUCOSE (test code = POCGLU) 178 MG/DL 70-110 H HEMOGLOBIN [id number] 22:55:00* Test Item Value Reference Range Interpretation Comme nts HEMOGLOBIN ABG (test code = HGB/ABG) 7.5 G/DL 11.0-15.0 L [id number] 22:55:00* Test Item Value Reference Range Interpretation Comme nts HEMATOCRIT (test code = HCT/ABG) 22 % 33.0-45.0 L POC LACTIC [id number] 22:55:00* Test Item Value Reference Range Interpretation Comme nts POC LACTIC ACID (test code = POCLAC) 0.8 mmol/l 0.9-1.7 L POC ARTERIAL BLOOD [id number] 21:08:00* Test Item Value Reference Range Interpretation Comme nts POC ARTERIAL BLOOD GAS PH (t est code = POCPHA) 7.284 7.35-7.45 LL POC ARTERIAL BLOOD GAS PCO2 (test code = VVVTFX1Q) 68.4 mmHg 35.0-45 HH POC TCO2 ARTERIAL (test code = POCTCO2) 34.4 POC ARTERIAL BLOOD GAS PO2 ( test code = TOJDL6L) 82.3 mmHg 80-100.0 N POC HCO3 ARTERIAL (test code = WTPTNL1W) 32.4 MMOL/L 22.0-26.0 HH POC BASE EXCESS (test code = POCBEA) 5.7 MMOL/L -4.0-4.0 H POC O2 SATURATION (test code = POCO2S) 93.8 % 90-100 N FIO2 (test code = FIO2A) 60 % PaO2/FiO2 (test code = [id number]) 137.16 mm/Hg ABG PEEP (test code = PEEPA) 5 cmH2O ABG TEMPERATURE (test code = TEMPA) 99 F ABG SITE (test code = SITEA) Art Line BASIC METABOLIC [id number] 21:08:00* Test Item Value Reference Range Interpretation Comme nts SODIUM (test code = NA/ABG) 143 MEQ/L 134-147 N POTASSIUM (test code = K/ABG) 4.6 MEQ/L 3.4-5.0 N CHLORIDE (test code = CL/ABG) 108 MEQ/L 100-108 N CREATININE ABG (test code = CREAABG) 1.2 mg/dL 0.6-1.0 H POC IONIZED CALCIUM (test co de = POCCA) 1.33 MMOL/L 1.12-1.32 H POC GLUCOSE (test code = POCGLU) 163 MG/DL 70-110 H HEMOGLOBIN [id number] 21:08:00* Test Item Value Reference Range Interpretation Comme nts HEMOGLOBIN ABG (test code = HGB/ABG) 7.9 G/DL 11.0-15.0 L [id number] 21:08:00* Test Item Value Reference Range Interpretation Comme nts HEMATOCRIT (test code = HCT/ABG) 23 % 33.0-45.0 L POC LACTIC [id number] 21:08:00* Test Item Value Reference Range Interpretation Comme nts POC LACTIC ACID (test code = POCLAC) 0.7 mmol/l 0.9-1.7 L POC ARTERIAL BLOOD [id number] 20:09:00* Test Item Value Reference Range Interpretation Comme nts POC ARTERIAL BLOOD GAS PH (t est code = POCPHA) 7.283 7.35-7.45 LL POC ARTERIAL BLOOD GAS PCO2 (test code = UDCXWN6T) 68.1 mmHg 35.0-45 HH POC TCO2 ARTERIAL (test code = POCTCO2) 34.2 POC ARTERIAL BLOOD GAS PO2 ( test code = SFKPY1F) 78.8 mmHg 80-100.0 L POC HCO3 ARTERIAL (test code = EUXJCR3B) 32.1 MMOL/L 22.0-26.0 HH POC BASE EXCESS (test code = POCBEA) 5.5 MMOL/L -4.0-4.0 H POC O2 SATURATION (test code = POCO2S) 93.0 % 90-100 N FIO2 (test code = FIO2A) 60 % PaO2/FiO2 (test code = USQ6REB7) 131.33 mm/Hg ABG DELIVERY (test code = MAAME) BiPAP ABG PEEP (test code = PEEPA) 578 cmH2O ABG TEMPERATURE (test code = TEMPA) 99 F ABG SITE (test code = SITEA) Art Line BASIC METABOLIC [id number] 20:09:00* Test Item Value Reference Range Interpretation Comme nts SODIUM (test code = NA/ABG) 142 MEQ/L 134-147 N POTASSIUM (test code = K/ABG) 4.5 MEQ/L 3.4-5.0 N CHLORIDE (test code = CL/ABG) 109 MEQ/L 100-108 H CREATININE ABG (test code = CREAABG) 1.1 mg/dL 0.6-1.0 H POC IONIZED CALCIUM (test co de = POCCA) 1.31 MMOL/L 1.12-1.32 N POC GLUCOSE (test code = POCGLU) 171 MG/DL 70-110 H HEMOGLOBIN [id number] 20:09:00* Test Item Value Reference Range Interpretation Comme nts HEMOGLOBIN ABG (test code = HGB/ABG) 7.8 G/DL 11.0-15.0 L [id number] 20:09:00* Test Item Value Reference Range Interpretation Comme nts HEMATOCRIT (test code = HCT/ABG) 23 % 33.0-45.0 L POC LACTIC [id number] 20:09:00* Test Item Value Reference Range Interpretation Comme nts POC LACTIC ACID (test code = POCLAC) 0.8 mmol/l 0.9-1.7 L POC ARTERIAL BLOOD [id number] 19:05:00* Test Item Value Reference Range Interpretation Comme nts POC ARTERIAL BLOOD GAS PH (t est code = POCPHA) 7.276 7.35-7.45 LL POC ARTERIAL BLOOD GAS PCO2 (test code = BDKITX5B) 65.7 mmHg 35.0-45 HH POC TCO2 ARTERIAL (test code = POCTCO2) 32.6 POC ARTERIAL BLOOD GAS PO2 ( test code = EKPPA2U) 203.2 mmHg 80-100.0 HH POC HCO3 ARTERIAL (test code = CKGLGF9B) 30.6 MMOL/L 22.0-26.0 HH POC BASE EXCESS (test code = POCBEA) 3.8 MMOL/L -4.0-4.0 N POC O2 SATURATION (test code = POCO2S) 99.6 % 90-100 N FIO2 (test code = FIO2A) 80 % PaO2/FiO2 (test code = GKQ5RYA4) 254.00 mm/Hg ABG DELIVERY (test code = MAAME) BiPAP ABG VENT MODE (test code = MODEA) CPAP/PS ABG PRESSURE SUPPORT (test c ode = PSABG) 14 cmH2O ABG TEMPERATURE (test code = TEMPA) 98.6 F ABG SITE (test code = SITEA) Art Line MARTIN'S TEST (test code = ALLENS) N/A BASIC METABOLIC [id number] 19:05:00* Test Item Value Reference Range Interpretation Comme nts SODIUM (test code = NA/ABG) 146 MEQ/L 134-147 N POTASSIUM (test code = K/ABG) 4.4 MEQ/L 3.4-5.0 N CHLORIDE (test code = CL/ABG) 108 MEQ/L 100-108 N CREATININE ABG (test code = CREAABG) 0.9 mg/dL 0.6-1.0 N POC IONIZED CALCIUM (test co de = POCCA) 1.29 MMOL/L 1.12-1.32 N POC GLUCOSE (test code = POCGLU) 159 MG/DL 70-110 H HEMOGLOBIN [id number] 19:05:00* Test Item Value Reference Range Interpretation Comme nts HEMOGLOBIN ABG (test code = HGB/ABG) 8.2 G/DL 11.0-15.0 L [id number] 19:05:00* Test Item Value Reference Range Interpretation Comme nts HEMATOCRIT (test code = HCT/ABG) 24 % 33.0-45.0 L POC LACTIC [id number] 19:05:00* Test Item Value Reference Range Interpretation Comme nts POC LACTIC ACID (test code = POCLAC) 0.5 mmol/l 0.9-1.7 L POC ARTERIAL BLOOD [id number] 16:53:00* Test Item Value Reference Range Interpretation Comme nts POC ARTERIAL BLOOD GAS PH (t est code = POCPHA) 7.333 7.35-7.45 L POC ARTERIAL BLOOD GAS PCO2 (test code = EMYWOM5F) 56.4 mmHg 35.0-45 HH POC TCO2 ARTERIAL (test code = POCTCO2) 31.6 POC ARTERIAL BLOOD GAS PO2 ( test code = WKVZB3Q) 99.2 mmHg 80-100.0 N POC HCO3 ARTERIAL (test code = SKWVXS1Q) 29.9 MMOL/L 22.0-26.0 HH POC BASE EXCESS (test code = POCBEA) 4.0 MMOL/L -4.0-4.0 N POC O2 SATURATION (test code = POCO2S) 97.0 % 90-100 N FIO2 (test code = FIO2A) 50 % PaO2/FiO2 (test code = MMZ4IIG8) 198.40 mm/Hg ABG VENT MODE (test code = MODEA) AC ABG PEEP (test code = PEEPA) 5 cmH2O ABG PRESSURE SUPPORT (test c ode = PSABG) 10 cmH2O ABG SITE (test code = SITEA) Art Line BASIC METABOLIC [id number] 16:53:00* Test Item Value Reference Range Interpretation Comme nts SODIUM (test code = NA/ABG) 143 MEQ/L 134-147 N POTASSIUM (test code = K/ABG) 4.4 MEQ/L 3.4-5.0 N CHLORIDE (test code = CL/ABG) 108 MEQ/L 100-108 N CREATININE ABG (test code = CREAABG) 0.9 mg/dL 0.6-1.0 N POC IONIZED CALCIUM (test co de = POCCA) 1.23 MMOL/L 1.12-1.32 N POC GLUCOSE (test code = POCGLU) 125 MG/DL 70-110 H HEMOGLOBIN [id number] 16:53:00* Test Item Value Reference Range Interpretation Comme nts HEMOGLOBIN ABG (test code = HGB/ABG) 8.3 G/DL 11.0-15.0 L [id number] 16:53:00* Test Item Value Reference Range Interpretation Comme nts HEMATOCRIT (test code = HCT/ABG) 24 % 33.0-45.0 L POC LACTIC [id number] 16:53:00* Test Item Value Reference Range Interpretation Comme nts POC LACTIC ACID (test code = POCLAC) 0.9 mmol/l 0.9-1.7 N LACTIC ACID [id number] 15:09:00* Test Item Value Reference Range Interpretation Comme nts LACTIC ACID REPEAT (test cod e = LACTR) 1.8 mmol/l 0.4-1.9 N POC ARTERIAL BLOOD [id number] 14:56:00* Test Item Value Reference Range Interpretation Comme nts POC ARTERIAL BLOOD GAS PH (t est code = POCPHA) 7.482 7.35-7.45 H POC ARTERIAL BLOOD GAS PCO2 (test code = FGOTFD4V) 37.2 mmHg 35.0-45 N POC TCO2 ARTERIAL (test code = POCTCO2) 29.1 POC ARTERIAL BLOOD GAS PO2 ( test code = KFNZU9Y) 62.0 mmHg 80-100.0 L POC HCO3 ARTERIAL (test code = IKIVDF7Q) 27.9 MMOL/L 22.0-26.0 H POC BASE EXCESS (test code = POCBEA) 4.3 MMOL/L -4.0-4.0 H POC O2 SATURATION (test code = POCO2S) 93.5 % 90-100 N FIO2 (test code = FIO2A) 40 % PaO2/FiO2 (test code = JAC5DQC6) 155.00 mm/Hg ABG DELIVERY (test code = MAAME) Adult Vent ABG VENT MODE (test code = MODEA) AC ABG VENT RESP RATE (test cod e = RRA) 24 /MIN ABG TIDAL VOLUME (test code = TVA) 450 ml ABG PEEP (test code = PEEPA) 5 cmH2O ABG TEMPERATURE (test code = TEMPA) 97.7 F ABG SITE (test code = SITEA) Art Line MARTIN'S TEST (test code = ALLENS) N/A BASIC METABOLIC [id number] 14:56:00* Test Item Value Reference Range Interpretation Comme nts SODIUM (test code = NA/ABG) 144 MEQ/L 134-147 N POTASSIUM (test code = K/ABG) 4.3 MEQ/L 3.4-5.0 N CHLORIDE (test code = CL/ABG) 106 MEQ/L 100-108 N CREATININE ABG (test code = CREAABG) 0.9 mg/dL 0.6-1.0 N POC IONIZED CALCIUM (test co de = POCCA) 1.27 MMOL/L 1.12-1.32 N POC GLUCOSE (test code = POCGLU) 126 MG/DL 70-110 H HEMOGLOBIN [id number] 14:56:00* Test Item Value Reference Range Interpretation Comme nts HEMOGLOBIN ABG (test code = HGB/ABG) 8.9 G/DL 11.0-15.0 L [id number] 14:56:00* Test Item Value Reference Range Interpretation Comme nts HEMATOCRIT (test code = HCT/ABG) 26 % 33.0-45.0 L POC LACTIC [id number] 14:56:00* Test Item Value Reference Range Interpretation Comme nts POC LACTIC ACID (test code = POCLAC) 1.6 mmol/l 0.9-1.7 N BASIC METABOLIC [id number] 13:38:00* Test Item Value Reference Range Interpretation Comme nts SODIUM (test code = NA) 147 mEq/L 134-147 N POTASSIUM (test code = K) 3.6 mEq/L 3.4-5.0 CHLORIDE (test code = CL) 109 mEq/L 100-108 H CARBON DIOXIDE (test code = CO2) 28 mEq/l 21-33 N ANION GAP (test code = GAP) 14 0-20 N GLUCOSE (test code = GLU) 153 mg/dL 70-110 H BLOOD UREA NITROGEN (test code = BUN) 18 mg/dL 7-18 N GLOMERULAR FILTRATION RATE (test code = GFR) 69.4 70-80 L Units of measure = ml/min/1.73 m2 CREATININE (test code = CREAT) 0.8 mg/dL 0.6-1.3 N CALCIUM (test code = CA) 8.7 mg/dL 8.0-10.5 N COMMENTS: On arrivalHEPATIC FUNCTION [id number] 13:38:00* Test Item Value Reference Range Interpretation Comme nts TOTAL PROTEIN (test code = PROT) 5.5 g/dL 6.4-8.2 L ALBUMIN (test code = ALB) 3.20 g/dL 3.4-5.0 L BILIRUBIN TOTAL (test code = BILT) 1.00 mg/dL 0.0-1.0 BILIRUBIN DIRECT (test code = BILD) 0.40 MG/DL 0.0-0.30 H BILIRUBIN INDIRECT (test cod e = BILIND) 0.60 MG/DL SGOT/AST (test code = AST) 44 IUnit/L 15-37 H SGPT/ALT (test code = ALT) 11 IUnit/L 30-65 L ALKALINE PHOSPHATASE TOTAL ( test code = ALKP) 47 IUnit/L 20-125 N COMMENTS: On [id number] 13:38:00* Test Item Value Reference Range Interpretation Comme nts MAGNESIUM (test code = MAG) 2.45 mg/dL 1.80-2.40 H COMMENTS: On arrivalCBC W/AUTO [id number] 13:38:00* Test Item Value Reference Range Interpretation Comme nts WHITE BLOOD CELL (test code = WBC) 7.8 x10 3/uL 4.5-11.0 RED BLOOD CELL (test code = RBC) 2.37 x10 6/uL 3.54-5.02 L HEMOGLOBIN (test code = HGB) 9.3 g/dL 11.0-15.0 L HEMATOCRIT (test code = HCT) 26.5 % 33.0-45.0 L MEAN CELL VOLUME (test code = MCV) 111.8 fL 81.0-99.0 H MEAN CELL HGB (test code = MCH) 39.2 pg 27.0-33.0 H MEAN CELL HGB CONCETRATION (test code = MCHC) 35.1 g/dL 33.0-37.0 N RED CELL DISTRIBUTION WIDTH CV (test code = RDW) 15.8 % 11.5-14.5 H RED CELL DISTRIBUTION WIDTH SD (test code = RDW-SD) 61.6 fL 37.0-54.0 H PLATELET COUNT (test code = PLT) 76 x10 3/uL 150-400 L MEAN PLATELET VOLUME (test c ode = MPV) 10.9 fL 7.0-9.0 H NEUTROPHIL % (test code = NT%) 87.6 % 56.0-77.0 H IMMATURE GRANULOCYTE % (test code = IG%) 0.8 % 0.0-2.0 N LYMPHOCYTE % (test code = LY%) 3.1 % 14.0-32.0 L MONOCYTE % (test code = MO%) 8.3 % 4.8-9.0 N EOSINOPHIL % (test code = EO%) 0.1 % 0.3-3.7 L BASOPHIL % (test code = BA%) 0.1 % 0.0-2.0 N NUCLEATED RBC % (test code = NRBC%) 0.0 % 0-0 N NEUTROPHIL # (test code = NT#) 6.83 x10 3/uL 2.0-7.6 N IMMATURE GRANULOCYTE # (test code = IG#) 0.06 x10 3/uL 0.00-0.03 H LYMPHOCYTE # (test code = LY#) 0.24 x10 3/uL 1.0-3.8 L MONOCYTE # (test code = MO#) 0.65 x10 3/uL 0.1-0.8 N EOSINOPHIL # (test code = EO#) 0.01 x10 3/uL 0.0-0.2 N BASOPHIL # (test code = BA#) 0.01 x10 3/uL 0.0-0.2 N NUCLEATED RBC # (test code = NRBC#) 0.00 x10 3/uL 0.0-0.1 N MANUAL DIFF REQUIRED (test c ode = MDIFF) NO COMMENTS: On arrivalRBC [id number] 13:38:00* Test Item Value Reference Range Interpretation Comme nts ANISOCYTOSIS (test code = ANISO) 1+ POLYCHROMASIA (test code = POLC) 1+ MACROCYTOSIS (test code = MACR) 1+ COMMENTS: On arrivalPLT [id number] 13:38:00* Test Item Value Reference Range Interpretation Comme nts PLATELET ESTIMATE (test code = PLTEST) 76-95 THOUSAND ADEQUATE COMMENTS: On arrivalPOC LACTIC [id number] 13:30:00* Test Item Value Reference Range Interpretation Comme nts POC LACTIC ACID (test code = POCLAC) 1.9 mmol/l 0.9-1.7 H POC VENOUS BLOOD [id number] 13:30:00* Test Item Value Reference Range Interpretation Comme nts POC VENOUS BLOOD GAS PH (ny t code = POCPHV) 7.334 7.33-7.45 N POC VENOUS BLOOD GAS PCO2 (t est code = BNUYVI4W) 57.2 mmHg 43-47 HH POC VENOUS BLOOD GAS PO2 (te st code = TGWRD5D) 35.1 mmHG 10-50 N POC TCO2 VENOUS (test code = RYVRMB5V) 32.2 POC HCO3 VENOUS (test code = QLWUGS6L) 30.5 MMOL/L 22-27 H POC BASE EXCESS VENOUS (test code = POCBEV) 4.6 MMOL/L -4.0-4.0 H POC O2 SATURATION VENOUS (te st code = SGCE6XC) 61.8 % 60-80 N VENOUS BLOOD GAS FIO2 (test code = FIO2V) 60 % VBG TIDAL VOLUME (test code = TVV) 450 ml VENOUS BLOOD GAS PEEP (test code = PEEPV) 5 cmH2O VENOUS BLOOD GAS SITE (test code = SITEV) [place] Juanita BASIC METABOLIC [id number] 13:30:00* Test Item Value Reference Range Interpretation Comme nts SODIUM (test code = NA/ABG) 143 MEQ/L 134-147 N POTASSIUM (test code = K/ABG) 3.7 MEQ/L 3.4-5.0 N CHLORIDE (test code = CL/ABG) 105 MEQ/L 100-108 N CREATININE ABG (test code = CREAABG) 0.8 mg/dL 0.6-1.0 N POC IONIZED CALCIUM (test co de = POCCA) 1.30 MMOL/L 1.12-1.32 N POC GLUCOSE (test code = POCGLU) 141 MG/DL 70-110 H HEMOGLOBIN [id number] 13:30:00* Test Item Value Reference Range Interpretation Comme nts HEMOGLOBIN ABG (test code = HGB/ABG) 8.9 G/DL 11.0-15.0 L [id number] 13:30:00* Test Item Value Reference Range Interpretation Comme nts HEMATOCRIT (test code = HCT/ABG) 26 % 33.0-45.0 L LACTIC [id number] 13:29:00* Test Item Value Reference Range Interpretation Comme nts LACTIC ACID (test code = LACT) 2.2 mmol/L 0.4-1.9 H PROTHROMBIN [id number] 13:22:00* Test Item Value Reference Range Interpretation Comme [facility] PROTHROMBIN TIME PATIENT (test code = PTP) 16.7 SECONDS 9.3-12.9 H INTERNATIONAL NORMAL RATIO (test code = INR) 1.5 0.8-1.2 H TARGET INR BY INDICATION Indication INR1. Prophylaxis of venous thrombosis 2.0 - 3.0 (orthopedic surgery), Prophylaxis of venous thrombosis (other than high-risk surgery), Treatment of Deep Vein Thrombosis/Pulmonary Embolism, Prevention of systemic embolism - Tissue heart valves, Acute Myocardial Infarction (to prevent systemic embolism), Valvular heart disease, Atrial Fibrillation, Bileaflet mechanical valve in aortic position.2. Mechanical prosthetic valves (high risk), 2.5 - 3.5 Presence of Lupus Anticoagulant or Antiphospholipid Antibodies, Prevention of systemic embolism - Acute Myocardial Infarction (to prevent recurrent infarct). COMMENTS: On arrivalTHROMBOPLASTIN TIME [id number] 13:22:00* Test Item Value Reference Range Interpretation Comme nts THROMBOPLASTIN TIME PARTIAL (test code = PTT) 24.4 Seconds 25.0-39.5 L Therapeutic Rang e: 50.4 - 88.3 Seconds Effective 06/28/2018 COMMENTS: On arrivalPOC ARTERIAL BLOOD [id number] 13:02:00* Test Item Value Reference Range Interpretation Comme nts POC ARTERIAL BLOOD GAS PH (t est code = POCPHA) 7.383 7.35-7.45 N POC ARTERIAL BLOOD GAS PCO2 (test code = JKZEDE8O) 51.0 mmHg 35.0-45 HH POC TCO2 ARTERIAL (test code = POCTCO2) 32.0 POC ARTERIAL BLOOD GAS PO2 ( test code = DLJVY4U) 72.1 mmHg 80-100.0 L POC HCO3 ARTERIAL (test code = BYDSPI1W) 30.4 MMOL/L 22.0-26.0 HH POC BASE EXCESS (test code = POCBEA) 5.3 MMOL/L -4.0-4.0 H POC O2 SATURATION (test code = POCO2S) 94.0 % 90-100 N FIO2 (test code = FIO2A) 50 % PaO2/FiO2 (test code = WVU1KIH6) 144.20 mm/Hg ABG DELIVERY (test code = MAAME) Adult Vent ABG VENT MODE (test code = MODEA) AC ABG VENT RESP RATE (test cod e = RRA) 18 /MIN ABG TIDAL VOLUME (test code = TVA) 500 ml ABG PEEP (test code = PEEPA) 5 cmH2O ABG TEMPERATURE (test code = TEMPA) 98 F ABG SITE (test code = SITEA) Art Line MARTIN'S TEST (test code = ALLENS) N/A BASIC METABOLIC [id number] 13:02:00* Test Item Value Reference Range Interpretation Comme nts SODIUM (test code = NA/ABG) 144 MEQ/L 134-147 N POTASSIUM (test code = K/ABG) 3.8 MEQ/L 3.4-5.0 N CHLORIDE (test code = CL/ABG) 105 MEQ/L 100-108 N CREATININE ABG (test code = CREAABG) 0.9 mg/dL 0.6-1.0 N POC IONIZED CALCIUM (test co de = POCCA) 1.29 MMOL/L 1.12-1.32 N POC GLUCOSE (test code = POCGLU) 144 MG/DL 70-110 H HEMOGLOBIN [id number] 13:02:00* Test Item Value Reference Range Interpretation Comme nts HEMOGLOBIN ABG (test code = HGB/ABG) 9.2 G/DL 11.0-15.0 L [id number] 13:02:00* Test Item Value Reference Range Interpretation Comme nts HEMATOCRIT (test code = HCT/ABG) 27 % 33.0-45.0 L POC LACTIC [id number] 13:02:00* Test Item Value Reference Range Interpretation Comme nts POC LACTIC ACID (test code = POCLAC) 2.0 mmol/l 0.9-1.7 H [id number] 11:33:00* Test Item Value Reference Range Interpretation Comme nts ACT-ISTAT (test code = ACTI) 115 SEC 74-137 N Performed by cer tified fondant machine operator at [facility] POC ARTERIAL BLOOD [id number] 11:25:00* Test Item Value Reference Range Interpretation Comme nts POC ARTERIAL BLOOD GAS PH (t est code = POCPHA) 7.472 7.35-7.45 H POC ARTERIAL BLOOD GAS PCO2 (test code = AKZSXU7J) 35.8 mmHg 35.0-45 N POC TCO2 ARTERIAL (test code = POCTCO2) 27.2 POC ARTERIAL BLOOD GAS PO2 ( test code = SOVZS8L) 303.1 mmHg 80-100.0 HH POC HCO3 ARTERIAL (test code = UERXOF5Z) 26.2 MMOL/L 22.0-26.0 H POC BASE EXCESS (test code = POCBEA) 2.5 MMOL/L -4.0-4.0 N POC O2 SATURATION (test code = POCO2S) 99.9 % 90-100 N BASIC METABOLIC [id number] 11:25:00* Test Item Value Reference Range Interpretation Comme nts SODIUM (test code = NA/ABG) 145 MEQ/L 134-147 N POTASSIUM (test code = K/ABG) 4.5 MEQ/L 3.4-5.0 N CHLORIDE (test code = CL/ABG) 106 MEQ/L 100-108 N CREATININE ABG (test code = CREAABG) 0.8 mg/dL 0.6-1.0 N POC IONIZED CALCIUM (test co de = POCCA) 1.33 MMOL/L 1.12-1.32 H POC GLUCOSE (test code = POCGLU) 168 MG/DL 70-110 H HEMOGLOBIN [id number] 11:25:00* Test Item Value Reference Range Interpretation Comme nts HEMOGLOBIN ABG (test code = HGB/ABG) 9.0 G/DL 11.0-15.0 L [id number] 11:25:00* Test Item Value Reference Range Interpretation Comme nts HEMATOCRIT (test code = HCT/ABG) 26 % 33.0-45.0 L POC LACTIC [id number] 11:25:00* Test Item Value Reference Range Interpretation Comme nts POC LACTIC ACID (test code = POCLAC) 2.3 mmol/l 0.9-1.7 H [id number] 11:05:00* Test Item Value Reference Range Interpretation Comme nts ACT-ISTAT (test code = ACTI) 491 SEC 74-137 H Performed by cer tified fondant machine operator at [facility] POC ARTERIAL BLOOD [id number] 10:54:00* Test Item Value Reference Range Interpretation Comme nts POC ARTERIAL BLOOD GAS PH (t est code = POCPHA) 7.467 7.35-7.45 H POC ARTERIAL BLOOD GAS PCO2 (test code = QDXOMA0C) 42.3 mmHg 35.0-45 N POC TCO2 ARTERIAL (test code = POCTCO2) 31.9 POC ARTERIAL BLOOD GAS PO2 ( test code = JBHOV0U) 226.6 mmHg 80-100.0 HH POC HCO3 ARTERIAL (test code = KHWCVO2P) 30.6 MMOL/L 22.0-26.0 HH POC BASE EXCESS (test code = POCBEA) 6.2 MMOL/L -4.0-4.0 H POC O2 SATURATION (test code = POCO2S) 99.8 % 90-100 N BASIC METABOLIC [id number] 10:54:00* Test Item Value Reference Range Interpretation Comme nts SODIUM (test code = NA/ABG) 143 MEQ/L 134-147 N POTASSIUM (test code = K/ABG) 5.2 MEQ/L 3.4-5.0 H CHLORIDE (test code = CL/ABG) 104 MEQ/L 100-108 N CREATININE ABG (test code = CREAABG) 0.9 mg/dL 0.6-1.0 N POC IONIZED CALCIUM (test co de = POCCA) 1.18 MMOL/L 1.12-1.32 N POC GLUCOSE (test code = POCGLU) 180 MG/DL 70-110 H HEMOGLOBIN [id number] 10:54:00* Test Item Value Reference Range Interpretation Comme nts HEMOGLOBIN ABG (test code = HGB/ABG) 8.5 G/DL 11.0-15.0 L [id number] 10:54:00* Test Item Value Reference Range Interpretation Comme nts HEMATOCRIT (test code = HCT/ABG) 25 % 33.0-45.0 L POC LACTIC [id number] 10:54:00* Test Item Value Reference Range Interpretation Comme nts POC LACTIC ACID (test code = POCLAC) 1.4 mmol/l 0.9-1.7 N [id number] 10:37:00* Test Item Value Reference Range Interpretation Comme nts ACT-ISTAT (test code = ACTI) 515 SEC 74-137 H Performed by cer tified fondant machine operator at [facility] POC ARTERIAL BLOOD [id number] 10:23:00* Test Item Value Reference Range Interpretation Comme nts POC ARTERIAL BLOOD GAS PH (t est code = POCPHA) 7.550 7.35-7.45 HH POC ARTERIAL BLOOD GAS PCO2 (test code = FXHUVB3B) 35.2 mmHg 35.0-45 N POC TCO2 ARTERIAL (test code = POCTCO2) 31.8 POC ARTERIAL BLOOD GAS PO2 ( test code = HLYDR8U) 278.5 mmHg 80-100.0 HH POC HCO3 ARTERIAL (test code = PTWGXE5Q) 30.8 MMOL/L 22.0-26.0 HH POC BASE EXCESS (test code = POCBEA) 7.9 MMOL/L -4.0-4.0 H POC O2 SATURATION (test code = POCO2S) 99.9 % 90-100 N BASIC METABOLIC [id number] 10:23:00* Test Item Value Reference Range Interpretation Comme nts SODIUM (test code = NA/ABG) 143 MEQ/L 134-147 N POTASSIUM (test code = K/ABG) 5.3 MEQ/L 3.4-5.0 H CHLORIDE (test code = CL/ABG) 104 MEQ/L 100-108 N CREATININE ABG (test code = CREAABG) 0.9 mg/dL 0.6-1.0 N POC IONIZED CALCIUM (test co de = POCCA) 1.15 MMOL/L 1.12-1.32 N POC GLUCOSE (test code = POCGLU) 197 MG/DL 70-110 H HEMOGLOBIN [id number] 10:23:00* Test Item Value Reference Range Interpretation Comme nts HEMOGLOBIN ABG (test code = HGB/ABG) 9.1 G/DL 11.0-15.0 L [id number] 10:23:00* Test Item Value Reference Range Interpretation Comme nts HEMATOCRIT (test code = HCT/ABG) 27 % 33.0-45.0 L POC LACTIC [id number] 10:23:00* Test Item Value Reference Range Interpretation Comme nts POC LACTIC ACID (test code = POCLAC) 1.1 mmol/l 0.9-1.7 N [id number] 09:56:00* Test Item Value Reference Range Interpretation Comme nts ACT-ISTAT (test code = ACTI) 642 SEC 74-137 H Performed by cer tified fondant machine operator at [facility] POC ARTERIAL BLOOD [id number] 09:52:00* Test Item Value Reference Range Interpretation Comme nts POC ARTERIAL BLOOD GAS PH (t est code = POCPHA) 7.532 7.35-7.45 HH POC ARTERIAL BLOOD GAS PCO2 (test code = XYDZST4K) 36.8 mmHg 35.0-45 N POC TCO2 ARTERIAL (test code = POCTCO2) 32.0 POC ARTERIAL BLOOD GAS PO2 ( test code = PFWNC5P) 427.8 mmHg 80-100.0 HH POC HCO3 ARTERIAL (test code = CCPZGE4N) 30.8 MMOL/L 22.0-26.0 HH POC BASE EXCESS (test code = POCBEA) 7.7 MMOL/L -4.0-4.0 H POC O2 SATURATION (test code = POCO2S) 100.0 % 90-100 N BASIC METABOLIC [id number] 09:52:00* Test Item Value Reference Range Interpretation Comme nts SODIUM (test code = NA/ABG) 143 MEQ/L 134-147 N POTASSIUM (test code = K/ABG) 4.5 MEQ/L 3.4-5.0 N CHLORIDE (test code = CL/ABG) 103 MEQ/L 100-108 N CREATININE ABG (test code = CREAABG) 1.0 mg/dL 0.6-1.0 N POC IONIZED CALCIUM (test co de = POCCA) 1.17 MMOL/L 1.12-1.32 N POC GLUCOSE (test code = POCGLU) 193 MG/DL 70-110 H HEMOGLOBIN [id number] 09:52:00* Test Item Value Reference Range Interpretation Comme nts HEMOGLOBIN ABG (test code = HGB/ABG) 9.2 G/DL 11.0-15.0 L [id number] 09:52:00* Test Item Value Reference Range Interpretation Comme nts HEMATOCRIT (test code = HCT/ABG) 27 % 33.0-45.0 L POC LACTIC [id number] 09:52:00* Test Item Value Reference Range Interpretation Comme nts POC LACTIC ACID (test code = POCLAC) 1.3 mmol/l 0.9-1.7 N [id number] 09:37:00* Test Item Value Reference Range Interpretation Comme nts ACT-ISTAT (test code = ACTI) 746 SEC 74-137 H Performed by cer tified fondant machine operator at [facility] POC ARTERIAL BLOOD [id number] 09:18:00* Test Item Value Reference Range Interpretation Comme nts POC ARTERIAL BLOOD GAS PH (t est code = POCPHA) 7.473 7.35-7.45 H POC ARTERIAL BLOOD GAS PCO2 (test code = PNBWGP3J) 41.7 mmHg 35.0-45 N POC TCO2 ARTERIAL (test code = POCTCO2) 31.9 POC ARTERIAL BLOOD GAS PO2 ( test code = GROQE3K) 447.6 mmHg 80-100.0 HH POC HCO3 ARTERIAL (test code = FLLBMJ7U) 30.6 MMOL/L 22.0-26.0 HH POC BASE EXCESS (test code = POCBEA) 6.4 MMOL/L -4.0-4.0 H POC O2 SATURATION (test code = POCO2S) 100.0 % 90-100 N BASIC METABOLIC [id number] 09:18:00* Test Item Value Reference Range Interpretation Comme nts SODIUM (test code = NA/ABG) 143 MEQ/L 134-147 N POTASSIUM (test code = K/ABG) 4.9 MEQ/L 3.4-5.0 N CHLORIDE (test code = CL/ABG) 102 MEQ/L 100-108 N CREATININE ABG (test code = CREAABG) 0.9 mg/dL 0.6-1.0 N POC IONIZED CALCIUM (test co de = POCCA) 1.13 MMOL/L 1.12-1.32 N POC GLUCOSE (test code = POCGLU) 208 MG/DL 70-110 H HEMOGLOBIN [id number] 09:18:00* Test Item Value Reference Range Interpretation Comme nts HEMOGLOBIN ABG (test code = HGB/ABG) 9.2 G/DL 11.0-15.0 L [id number] 09:18:00* Test Item Value Reference Range Interpretation Comme nts HEMATOCRIT (test code = HCT/ABG) 27 % 33.0-45.0 L POC LACTIC [id number] 09:18:00* Test Item Value Reference Range Interpretation Comme nts POC LACTIC ACID (test code = POCLAC) 1.2 mmol/l 0.9-1.7 N [id number] 08:57:00* Test Item Value Reference Range Interpretation Comme nts ACT-ISTAT (test code = ACTI) 740 SEC 74-137 H Performed by cer tified fondant machine operator at [facility] POC ARTERIAL BLOOD [id number] 08:47:00* Test Item Value Reference Range Interpretation Comme nts POC ARTERIAL BLOOD GAS PH (t est code = POCPHA) 7.421 7.35-7.45 N POC ARTERIAL BLOOD GAS PCO2 (test code = CJSRKZ8C) 42.1 mmHg 35.0-45 N POC TCO2 ARTERIAL (test code = POCTCO2) 28.7 POC ARTERIAL BLOOD GAS PO2 ( test code = GRORV1G) 349.7 mmHg 80-100.0 HH POC HCO3 ARTERIAL (test code = WBTUMF9K) 27.4 MMOL/L 22.0-26.0 H POC BASE EXCESS (test code = POCBEA) 2.6 MMOL/L -4.0-4.0 N POC O2 SATURATION (test code = POCO2S) 99.9 % 90-100 N BASIC METABOLIC [id number] 08:47:00* Test Item Value Reference Range Interpretation Comme nts SODIUM (test code = NA/ABG) 142 MEQ/L 134-147 N POTASSIUM (test code = K/ABG) 4.2 MEQ/L 3.4-5.0 N CHLORIDE (test code = CL/ABG) 101 MEQ/L 100-108 N CREATININE ABG (test code = CREAABG) 0.9 mg/dL 0.6-1.0 N POC IONIZED CALCIUM (test co de = POCCA) 1.16 MMOL/L 1.12-1.32 N POC GLUCOSE (test code = POCGLU) 244 MG/DL 70-110 H HEMOGLOBIN [id number] 08:47:00* Test Item Value Reference Range Interpretation Comme nts HEMOGLOBIN ABG (test code = HGB/ABG) 10.3 G/DL 11.0-15.0 L [id number] 08:47:00* Test Item Value Reference Range Interpretation Comme nts HEMATOCRIT (test code = HCT/ABG) 30 % 33.0-45.0 L POC LACTIC [id number] 08:47:00* Test Item Value Reference Range Interpretation Comme nts POC LACTIC ACID (test code = POCLAC) 1.1 mmol/l 0.9-1.7 N CBC W/AUTO [id number] 08:23:00* Test Item Value Reference Range Interpretation Comme nts WHITE BLOOD CELL (test code = WBC) 4.9 x10 3/uL 4.5-11.0 N RED BLOOD CELL (test code = RBC) 3.11 x10 6/uL 3.54-5.02 L HEMOGLOBIN (test code = HGB) 11.0 g/dL 11.0-15.0 N HEMATOCRIT (test code = HCT) 34.5 % 33.0-45.0 N MEAN CELL VOLUME (test code = MCV) 110.9 fL 81.0-99.0 H MEAN CELL HGB (test code = MCH) 35.4 pg 27.0-33.0 H MEAN CELL HGB CONCETRATION (test code = MCHC) 31.9 g/dL 33.0-37.0 L RED CELL DISTRIBUTION WIDTH CV (test code = RDW) 15.9 % 11.5-14.5 H RED CELL DISTRIBUTION WIDTH SD (test code = RDW-SD) 65.8 fL 37.0-54.0 H PLATELET COUNT (test code = PLT) 118 x10 3/uL 150-400 L MEAN PLATELET VOLUME (test c ode = MPV) 12.0 fL 7.0-9.0 H NEUTROPHIL % (test code = NT%) 82.5 % 56.0-77.0 H IMMATURE GRANULOCYTE % (test code = IG%) 0.4 % 0.0-2.0 N LYMPHOCYTE % (test code = LY%) 5.7 % 14.0-32.0 L MONOCYTE % (test code = MO%) 10.4 % 4.8-9.0 H EOSINOPHIL % (test code = EO%) 0.8 % 0.3-3.7 N BASOPHIL % (test code = BA%) 0.2 % 0.0-2.0 N NUCLEATED RBC % (test code = NRBC%) 0.0 % 0-0 N NEUTROPHIL # (test code = NT#) 4.06 x10 3/uL 2.0-7.6 N IMMATURE GRANULOCYTE # (test code = IG#) 0.02 x10 3/uL 0.00-0.03 N LYMPHOCYTE # (test code = LY#) 0.28 x10 3/uL 1.0-3.8 L MONOCYTE # (test code = MO#) 0.51 x10 3/uL 0.1-0.8 N EOSINOPHIL # (test code = EO#) 0.04 x10 3/uL 0.0-0.2 N BASOPHIL # (test code = BA#) 0.01 x10 3/uL 0.0-0.2 N NUCLEATED RBC # (test code = NRBC#) 0.00 x10 3/uL 0.0-0.1 N MANUAL DIFF REQUIRED (test c ode = MDIFF) NO [id number] 07:46:00* Test Item Value Reference Range Interpretation Comme nts ACT-ISTAT (test code = ACTI) 138 SEC 74-137 H Performed by cer arlene fondant machine operator at [facility] POC ARTERIAL BLOOD [id number] 07:37:00* Test Item Value Reference Range Interpretation Comme nts POC ARTERIAL BLOOD GAS PH (t est code = POCPHA) 7.439 7.35-7.45 N POC ARTERIAL BLOOD GAS PCO2 (test code = RNDAYM0P) 38.6 mmHg 35.0-45 N POC TCO2 ARTERIAL (test code = POCTCO2) 27.3 POC ARTERIAL BLOOD GAS PO2 ( test code = CIBZL8C) 482.6 mmHg 80-100.0 HH POC HCO3 ARTERIAL (test code = PYQTEK5X) 26.2 MMOL/L 22.0-26.0 H POC BASE EXCESS (test code = POCBEA) 1.9 MMOL/L -4.0-4.0 N POC O2 SATURATION (test code = POCO2S) 100.0 % 90-100 N BASIC METABOLIC [id number] 07:37:00* Test Item Value Reference Range Interpretation Comme nts SODIUM (test code = NA/ABG) 143 MEQ/L 134-147 N POTASSIUM (test code = K/ABG) 4.3 MEQ/L 3.4-5.0 N CHLORIDE (test code = CL/ABG) 104 MEQ/L 100-108 N CREATININE ABG (test code = CREAABG) 1.0 mg/dL 0.6-1.0 N POC IONIZED CALCIUM (test co de = POCCA) 1.13 MMOL/L 1.12-1.32 N POC GLUCOSE (test code = POCGLU) 257 MG/DL 70-110 H HEMOGLOBIN [id number] 07:37:00* Test Item Value Reference Range Interpretation Comme nts HEMOGLOBIN ABG (test code = HGB/ABG) 9.5 G/DL 11.0-15.0 L [id number] 07:37:00* Test Item Value Reference Range Interpretation Comme nts HEMATOCRIT (test code = HCT/ABG) 28 % 33.0-45.0 L POC LACTIC [id number] 07:37:00* Test Item Value Reference Range Interpretation Comme nts POC LACTIC ACID (test code = POCLAC) 2.0 mmol/l 0.9-1.7 H COMPREHENSIVE METABOLIC [id number] 07:20:00* Test Item Value Reference Range Interpretation Comme nts SODIUM (test code = NA) 143 mEq/L 134-147 N POTASSIUM (test code = K) 4.8 mEq/L 3.4-5.0 N CHLORIDE (test code = CL) 105 mEq/L 100-108 N CARBON DIOXIDE (test code = CO2) 32 mEq/l 21-33 N ANION GAP (test code = GAP) 11 0-20 N GLUCOSE (test code = GLU) 136 mg/dL 70-110 H BLOOD UREA NITROGEN (test code = BUN) 16 mg/dL 7-18 GLOMERULAR FILTRATION RATE (test code = GFR) 60.6 70-80 L Units of measure = ml/min/1.73 m2 CREATININE (test code = CREAT) 0.9 mg/dL 0.6-1.3 N TOTAL PROTEIN (test code = PROT) 7.4 g/dL 6.4-8.2 N ALBUMIN (test code = ALB) 3.80 g/dL 3.4-5.0 N CALCIUM (test code = CA) 9.7 mg/dL 8.0-10.5 N BILIRUBIN TOTAL (test code = BILT) 0.50 mg/dL 0.0-1.0 N SGOT/AST (test code = AST) 16 IUnit/L 15-37 N SGPT/ALT (test code = ALT) 11 IUnit/L 30-65 L ALKALINE PHOSPHATASE TOTAL (test code = ALKP) 71 IUnit/L 20-125 N THROMBOPLASTIN TIME [id number] 05:41:00* Test Item Value Reference Range Interpretation Comme [facility] THROMBOPLASTIN TIME PARTIAL (test code = PTT) 31.1 Seconds 25.0-39.5 N Therapeutic Rang e: 50.4 - 88.3 Seconds Effective 06/28/2018 PROTHROMBIN [id number] 05:28:00* Test Item Value Reference Range Interpretation Comme [facility] PROTHROMBIN TIME PATIENT (test code = PTP) 13.5 SECONDS 9.3-12.9 H INTERNATIONAL NORMAL RATIO (test code = INR) 1.2 0.8-1.2 N TARGET INR BY INDICATION Indication INR1. Prophylaxis of venous thrombosis 2.0 - 3.0 (orthopedic surgery), Prophylaxis of venous thrombosis (other than high-risk surgery), Treatment of Deep Vein Thrombosis/Pulmonary Embolism, Prevention of systemic embolism - Tissue heart valves, Acute Myocardial Infarction (to prevent systemic embolism), Valvular heart disease, Atrial Fibrillation, Bileaflet mechanical valve in aortic position.2. Mechanical prosthetic valves (high risk), 2.5 - 3.5 Presence of Lupus Anticoagulant or Antiphospholipid Antibodies, Prevention of systemic embolism - Acute Myocardial Infarction (to prevent recurrent infarct). - XR CHEST 1 [id number] 00:00:00 [facility] 1945 Sex: F FAX: Jeffry Pennington MD [phone] [place]: St: ADM FAX: Dong Christiansen MD [phone] FAX: René Blancas [phone] FAX: Colt Aguillon MD [phone] Name: CHANCECIKIAH [facility] : 1945 Age/S: 76/F [address] [place] [address] Unit #: [id number] Loc: [place] [address] Phys: René Romero MD Acct: [id number] Dis Date: Status: ADM IN PHONE #: [phone] Exam Date: 12/19 1336 FAX #: [phone] Reason: SURGICAL COUNT EXAMS: CPT CODE: [id number] XR CHEST 1 V 21397 PROCEDURE INFORMATION: Exam: XR Chest Exam date [...] left multi lead pacemaker. The right IJ [place]-Juanita catheter tip projects at the level of the right main pulmonary artery. Lungs: Scattered bilateral central and bibasilar [...] Signed Report (CONTINUED) FAX: Jeffry Pennington MD [phone] [place]: St: ADM FAX: Dong Christiansen MD [phone] FAX: René Blancas [phone] FAX: Colt Aguillon MD [phone] Name: KIAH GILES [facility] [place] : 1945 Age/S: 76/F [address] [place] [address] Unit #: [id number] Loc: [address] [place] [address] Phys: René Bassett MD Acct: [id number] Dis Date: Status: ADM IN PHONE #: [phone] Exam Date: 12/19/2021 1336 FAX #: [phone] Reason: SURGICAL COUNT EXAMS: CPT CODE: [id number] XR CHEST 1 [id number] (Continued) at 1402 Reported and signed by: Jonathan Calles M.D. CC: Jeffry More MD; Dong Fuchs MD; René Romero MD; Colt Vail MD Technologist: RT Osman(R) Trnscrd Date/Time/By: 12/19/2021 (1402) : By: [email or web address] Orig Print D/T: S: 12/19/2021 (1403) PAGE 2 Signed Report- XR CHEST 1 [id number] 00:00:00 [facility] 1945 Sex: F FAX: eJffry Pennington MD [phone] [place]: St: ADM FAX: Dong Christiansen MD [phone] FAX: René Blancas [phone] FAX: Colt Aguillon MD [phone] Name: KIAH GILES [facility] : 1945 Age/S: 76/F [address] [place] [address] Unit #: [id number] Loc: [address] [place] [address] Phys: René Romero MD Acct: [id number] Dis Date: Status: ADM IN PHONE #: [phone] Exam Date: 12/19/20211314 FAX #: [phone] Reason: Cardiac Surgery Post Op EXAMS: CPT CODE: [id number] XR CHEST1 V 40799 PROCEDURE INFORMATION: Exam: XR Chest Exam date [...] of the sternoclavicular joints. There is a [place]-Juanita catheter in place. Lungs: There are patchy [...] at 1516 Reported and signed by: Syeda Lbelanc M.D. CC: Jeffry More MD; Dong Fuchs MD; René Romero MD; Colt Vail MD Technologist: RT Kimberly(R) Trnscrd Date/Time/By: 12/19/2021 (1515) : By: [email or web address] Orig Print D/T: S: 12/19/2021 (1515) PAGE 1 Signed ReportGLUCOSE [id number] 21:03:00* Test Item Value Reference Range Interpretation Comme nts GLUCOSE BEDSIDE (test code = GLUBED) 260 MG/DL 70-110 H Performed by cer tified fondant machine operator at [facility] GLUCOSE [id number] 16:49:00* Test Item Value Reference Range Interpretation Comme nts GLUCOSE BEDSIDE (test code = GLUBED) 226 MG/DL 70-110 H Performed by cer tified fondant machine operator at [facility] GLUCOSE [id number] 13:03:00* Test Item Value Reference Range Interpretation Comme nts GLUCOSE BEDSIDE (test code = GLUBED) 148 MG/DL 70-110 H Performed by cer tified fondant machine operator at [facility] GLUCOSE [id number] 11:18:00* Test Item Value Reference Range Interpretation Comme nts GLUCOSE BEDSIDE (test code = GLUBED) 153 MG/DL 70-110 H Performed by cer tified fondant machine operator at [facility] B-TYPE NATRIURETIC [id number] 05:59:00* Test Item Value Reference Range Interpretation Comme nts B-TYPE NATRIURETIC PEPTIDE ( test code = BNP) 90.0 PG/ML 0-100 N [id number] 05:39:00* Test Item Value Reference Range Interpretation Comme nts HGBA1C% (test code = HGBA1C%) 6.2 %A1C 4.8-6.0 H CBC W/AUTO [id number] 05:26:00* Test Item Value Reference Range Interpretation Comme nts WHITE BLOOD CELL (test code = WBC) 4.0 x10 3/uL 4.5-11.0 L RED BLOOD CELL (test code = RBC) 3.15 x10 6/uL 3.54-5.02 L HEMOGLOBIN (test code = HGB) 11.0 g/dL 11.0-15.0 N HEMATOCRIT (test code = HCT) 33.9 % 33.0-45.0 N MEAN CELL VOLUME (test code = MCV) 107.6 fL 81.0-99.0 H MEAN CELL HGB (test code = MCH) 34.9 pg 27.0-33.0 H MEAN CELL HGB CONCETRATION (test code = MCHC) 32.4 g/dL 33.0-37.0 L RED CELL DISTRIBUTION WIDTH CV (test code = RDW) 15.9 % 11.5-14.5 H RED CELL DISTRIBUTION WIDTH SD (test code = RDW-SD) 62.6 fL 37.0-54.0 H PLATELET COUNT (test code = PLT) 116 x10 3/uL 150-400 L MEAN PLATELET VOLUME (test c ode = MPV) 11.5 fL 7.0-9.0 H NEUTROPHIL % (test code = NT%) 80.1 % 56.0-77.0 H IMMATURE GRANULOCYTE % (test code = IG%) 0.3 % 0.0-2.0 N LYMPHOCYTE % (test code = LY%) 8.4 % 14.0-32.0 L MONOCYTE % (test code = MO%) 9.4 % 4.8-9.0 H EOSINOPHIL % (test code = EO%) 1.3 % 0.3-3.7 N BASOPHIL % (test code = BA%) 0.5 % 0.0-2.0 N NUCLEATED RBC % (test code = NRBC%) 0.0 % 0-0 N NEUTROPHIL # (test code = NT#) 3.17 x10 3/uL 2.0-7.6 N IMMATURE GRANULOCYTE # (test code = IG#) 0.01 x10 3/uL 0.00-0.03 N LYMPHOCYTE # (test code = LY#) 0.33 x10 3/uL 1.0-3.8 L MONOCYTE # (test code = MO#) 0.37 x10 3/uL 0.1-0.8 N EOSINOPHIL # (test code = EO#) 0.05 x10 3/uL 0.0-0.2 N BASOPHIL # (test code = BA#) 0.02 x10 3/uL 0.0-0.2 N NUCLEATED RBC # (test code = NRBC#) 0.00 x10 3/uL 0.0-0.1 N MANUAL DIFF REQUIRED (test c ode = MDIFF) NO PROTHROMBIN [id number] 04:51:00* Test Item Value Reference Range Interpretation Comme nts PROTHROMBIN TIME PATIENT (test code = PTP) 13.5 SECONDS 9.3-12.9 H INTERNATIONAL NORMAL RATIO (test code = INR) 1.2 0.8-1.2 N TARGET INR BY INDICATION Indication INR1. Prophylaxis of venous thrombosis 2.0 - 3.0 (orthopedic surgery), Prophylaxis of venous thrombosis (other than high-risk surgery), Treatment of Deep Vein Thrombosis/Pulmonary Embolism, Prevention of systemic embolism - Tissue heart valves, Acute Myocardial Infarction (to prevent systemic embolism), Valvular heart disease, Atrial Fibrillation, Bileaflet mechanical valve in aortic position.2. Mechanical prosthetic valves (high risk), 2.5 - 3.5 Presence of Lupus Anticoagulant or Antiphospholipid Antibodies, Prevention of systemic embolism - Acute Myocardial Infarction (to prevent recurrent infarct). THROMBOPLASTIN TIME [id number] 04:51:00* Test Item Value Reference Range Interpretation Comme nts THROMBOPLASTIN TIME PARTIAL (test code = PTT) 31.0 Seconds 25.0-39.5 N Therapeutic Rang e: 50.4 - 88.3 Seconds Effective 06/28/2018 COMPREHENSIVE METABOLIC [id number] 04:47:00* Test Item Value Reference Range Interpretation Comme nts SODIUM (test code = NA) 141 mEq/L 134-147 N POTASSIUM (test code = K) 4.3 mEq/L 3.4-5.0 N CHLORIDE (test code = CL) 105 mEq/L 100-108 N CARBON DIOXIDE (test code = CO2) 30 mEq/l 21-33 N ANION GAP (test code = GAP) 10 0-20 N GLUCOSE (test code = GLU) 147 mg/dL 70-110 H BLOOD UREA NITROGEN (test code = BUN) 12 mg/dL 7-18 N GLOMERULAR FILTRATION RATE (test code = GFR) 69.4 70-80 L Units of measure = ml/min/1.73 m2 CREATININE (test code = CREAT) 0.8 mg/dL 0.6-1.3 N TOTAL PROTEIN (test code = PROT) 7.2 g/dL 6.4-8.2 N ALBUMIN (test code = ALB) 3.70 g/dL 3.4-5.0 N CALCIUM (test code = CA) 9.6 mg/dL 8.0-10.5 N BILIRUBIN TOTAL (test code = BILT) 0.60 mg/dL 0.0-1.0 N SGOT/AST (test code = AST) 17 IUnit/L 15-37 N SGPT/ALT (test code = ALT) 11 IUnit/L 30-65 L ALKALINE PHOSPHATASE TOTAL (test code = ALKP) 72 IUnit/L 20-125 N LIPID PROFILE (CORONARY RISK)2021-12-18 04:47:00* Test Item Value Reference Range Interpretation Comme nts TRIGLYCERIDES (test code = TRIG) 67 mg/dL 40-150 N CHOLESTEROL (test code = CHOL) 108 mg/dL <200 CHOLESTEROL/HDL RATIO (test code = CHOLHDL) 3.25 RATIO 3.27-4.44 L RISK ASSOCIATED WITH CHOL/HDL RATIOS: RISK MALE FEMALE1/2 AVERAGE 3.43 3.27AVERAGE 4.97 4.442X AVERAGE 9.55 7.053X AVERAGE 23.39 11.04 NOTE THAT THE REFERENCE VALUE IS RELATEDTO RISK LEVELS RECOMMENDED BY THE NATL.HEART, LUNG, AND BLOOD INST. HDL CHOLESTEROL (test code = HDL) 33.2 mg/dL 39-96 L LIPOPROTEIN LDL (test code = LDL) 66.3 mg/dL 0-100 N <100 DGSJAIE93 0-129 NEAR OPTIMAL/ABOVE [id number] FTKQKRIXSB236-352 HIGH>LV=164 VERY HIGH*Guidelines provided by the National Cholesterol EducationProgram Adult Treatment Panel III URINALYSIS [id number] 03:32:00* Test Item Value Reference Range Interpretation Comme nts UA COLOR (test code = COLU) YELLOW YEL/STRAW UA APPEARANCE (test code = APPU) SL CLOUDY CLEAR UA GLUCOSE DIPSTICK (test co de = DGLUU) NEGATIVE NEGATIVE UA BILIRUBIN DIPSTICK (test code = BILU) NEGATIVE NEGATIVE UA KETONE DIPSTICK (test cod e = KETU) NEGATIVE NEGATIVE UA SPECIFIC GRAVITY (test co de = SGU) 1.032 1.005-1.030 H UA BLOOD DIPSTICK (test code = LALY) NEGATIVE NEGATIVE UA PH DIPSTICK (test code = CLEMENTINA) 5.0 5.0-7.0 N UA PROTEIN DIPSTICK (test co de = PROU) NEGATIVE NEGATIVE UA UROBILINIOGEN DIPSTICK (t est code = URO) 0.2 mg/dL 0.2-1.0 UA NITRITE DIPSTICK (test co de = SAMARIA) NEGATIVE NEGATIVE UA LEUKOCYTE ESTERASE DIPSTI CK (test code = LEUU) 3+ NEGATIVE A UA RBC (test code = RBCU) 11-20 RBC/HPF 0-3 UA WBC NO REFLEX (test code = WBCUCL) 21-50 WBC/HPF 0-3 A UA BACTERIA (test code = BACU) 1+ /HPF NONE SEEN A UA SQUAMOUS CELLS (test code = SQU) 11-25 /HPF NONE SEEN A UA MUCUS (test code = MUCU) TRACE /LPF NONE SEEN COVID 19 Asymptomatic IH [id number] 20:44:00* Test Item Value Reference Range Interpretation Comme nts COVID 19 Asymptomatic IH AG (test code = COVNONPUIAG) Negative Negative A negative resul t is presumptive and should be confirmedwith an FDA authorized molecular assay, if necessary forpatient management.A positive result does not rule out co-infections withother pathogens.This test detects both viable (live) and non-viable,SARS-CoV, and SARS-CoV-2. Test performance depends on theamount of virus (antigen) in the sample.This test has not been FDA cleared or approved; the test hasbeen authorized by FDA under an Emergency Use Authorization(EUA) for use by laboratories certified under the CLIA thatmeet the requirements to perform moderate, high or waivedcomplexity tests. GLUCOSE [id number] 19:26:00* Test Item Value Reference Range Interpretation Comme nts GLUCOSE BEDSIDE (test code = GLUBED) 213 MG/DL 70-110 H Performed by cer tified fondant machine operator at [facility] GLUCOSE [id number] 13:37:00* Test Item Value Reference Range Interpretation Comme nts GLUCOSE BEDSIDE (test code = GLUBED) 140 MG/DL 70-110 H Performed by cer tified fondant machine operator at [facility] [id number] 11:10:00* Test Item Value Reference Range Interpretation Comme nts ACT-ISTAT (test code = ACTI) 265 SEC 74-137 H Performed by cer tified fondant machine operator at [facility] [id number] 10:56:00* Test Item Value Reference Range Interpretation Comme nts ACT-ISTAT (test code = ACTI) 335 SEC 74-137 H Performed by cer tified fondant machine operator at [facility] GLUCOSE [id number] 08:08:00* Test Item Value Reference Range Interpretation Comme nts GLUCOSE BEDSIDE (test code = GLUBED) 164 MG/DL 70-110 H Performed by cer tified fondant machine operator at [facility] - CT CHEST W/O [id number] 00:00:00 [facility] 1945 Sex: F Name: KIAH GILES [facility] : 1945 Age/S: 76 / F [address] [place] [address] Unit #: [id number] Loc: [place] [address] Phys: Kena Macedo VISUAL EFFECTS ARTIST Acct: [id number] Dis Date: Status: ADM IN PHONE #: [phone] Exam Date: 12/17/20211733 FAX #: [phone] Reason: Cardiac Surgery Pre Op Report Has Been Amended EXAMS: CPT CODE: [id number] CT CHEST W/O CONTRAST 25247 Addendum -12/17/2021 SIGNED 12/17/2021 ADDENDUM: [id number] CT/CTCHESTWO There is a 4 mm noncalcified [...] Chest Without Contrast; Diagnostic Exam date and time:12/17/2021 5:33 PM Age: 76 years old Clinical [...] of the right cardiac ventricle and coronary sinus.There is a severe burden of three-vessel coronary artery atherosclerotic vascular calcification. There is cardiomegaly. There is no pericardial effusion. PAGE 1 Signed Report (CONTINUED) Name: KIAH GILES [facility] : 1945 Age/S: 76 / F [address] [place] [address] Unit #: [id number] Loc: [place] [address] Phys: Kena Arboleda NP Acct: [id number] Dis Date: Status: ADM IN PHONE #: [phone] Exam Date: 12/17/2021 1736 FAX #: [phone] Reason: Cardiac Surgery Pre Op Report Has Been Amended EXAMS: CPT CODE: [id number] CT CHEST W/O CONTRAST 39933 (Continued) Lungs: There is atelectasis within the lungs. There is a 4 mm noncalcified right middle lobe nodule 65 ofseries 2. There is mild interstitial pulmonary edema. [...] tissues: Unremarkable. IMPRESSION: 1. There is a 2 lead [...] signed by: Jose Rankin D.O. CC: Jeffry More MD; Dong Fuchs MD; Kena Macedo VISUAL EFFECTS ARTIST; Colt Vail MD Technologist:David Sanders, RT(R)(CT) CTDI: DLP: Trnscb Date/Time: 12/17/2021 (1847) [email or web address] Orig Print D/T: S: 12/17/2021 (747) PAGE 2 Signed Report- DUP EXTRACRANIAL [id number] 00:00:00 [facility] : 1945 Sex: F Name: KIAH GILES [facility] [place] : 1945 Age/S: 76 / F [address] [place] [address] Blvd Unit #: [id number] Loc: [place] [address] Phys: Kena Macedo VISUAL EFFECTS ARTIST Acct: [id number] Dis Date: Status: ADM IN PHONE #: [phone] Exam Date: 12/17/20211846 FAX #: [phone] Reason: Cardiac Surgery Pre Op EXAMS: CPT CODE: [id number] DUP EXTRACRANIAL RAJAN 72241 PROCEDURE INFORMATION: Exam: US Duplex Bilateral Extracranial Arteries, Carotid Arteries Exam date and time: 12/17/2021 6:02 PM Age: 76 yearsold Clinical indication: Screening exam; Additional info: Cardiac surgery pre op TECHNIQUE: Imagingprotocol: Real-time Duplex ultrasound scan of the bilateral [...] vertebral artery: Antegrade flow. Left common carotid artery:No occlusion or stenosis. Waveforms are normal. Left internal carotid artery: No occlusion or stenosis. Waveforms are normal. Left ICA/CCA ratio: Within normal limits. [...] M.D. PAGE 1 Signed Report (CONTINUED) Name: [facility] [place] 1945 Age/S: 76 / F [address] [place], [place] [address] Unit #: [id number] Loc: [place] [address] Phys: Kena Macedo VISUAL EFFECTS ARTIST Acct: [id number] Dis Date: Status: ADM IN PHONE #: [phone] Exam Date: 12/17/2021 184 FAX #: [phone] Reason: Cardiac Surgery Pre Op EXAMS: CPT CO DE: [id number] DUP EXTRACRANIAL RAJAN 40634 (Continued) CC: Jeffry More MD; Dong Fuchs MD; Kena Macedo NP; Colt Vail MD Technologist: Anu Denis Trnnhb Date/Time: 12/17/2021 (1901) [email or web address] Orig Print D/T: S: 12/17/2021 (1902) Probe: PAGE 2 Signed Report- DUP VEIN [id number] 00:00:00[facility] K[facility]H [facility]IL[facility] : 1945 Sex: F Name: KIAH GILES [facility] : 1945 Age/S: 76 / F [address] [place] [address] Unit #: [id number] Loc: [place] [address] Phys: Kena Macedo NP Acct: [id number] Dis Date: Status: ADM IN PHONE #: [phone] Exam Date: 12/17/2021 1847 FAX #: [phone] Reason: Cardiac Surgery Pre Op EXAMS: CPT CODE: [id number] DUP VEIN RAJAN 30319 PROCEDURE INFORMATION: Exam: US Duplex Lower Extremity [...] focused on the bilateral lower extremity veins for vein mapping. COMPARISON: No relevant prior studies [...] Anoop Lilly M.D. CC: Jeffry More MD; Dong Fuchs MD; Kena Macedo NP; Colt Vail MD Technologist: Anu Denis Trnscb Date/Time: 12/17/2021 (2001) [id number] Orig Print D/T: S: 12/17/2021 (2001) Probe: PAGE 1 [facility] DIFF 2021-12-12 13:43:00* Test Item Value Reference Range Interpretation Comme nts WHITE BLOOD CELL (test code = WBC) 4.1 x10 3/uL 4.5-11.0 L RED BLOOD CELL (test code = RBC) 3.26 x10 6/uL 3.54-5.02 L HEMOGLOBIN (test code = HGB) 11.4 g/dL 11.0-15.0 N HEMATOCRIT (test code = HCT) 35.1 % 33.0-45.0 N MEAN CELL VOLUME (test code = MCV) 107.7 fL 81.0-99.0 H MEAN CELL HGB (test code = MCH) 35.0 pg 27.0-33.0 H MEAN CELL HGB CONCETRATION (test code = MCHC) 32.5 g/dL 33.0-37.0 L RED CELL DISTRIBUTION WIDTH CV (test code = RDW) 15.9 % 11.5-14.5 H RED CELL DISTRIBUTION WIDTH SD (test code = RDW-SD) 63.6 fL 37.0-54.0 H PLATELET COUNT (test code = PLT) 119 x10 3/uL 150-400 L IMMATURE PLATELET FRACTION (test code = IPF) 5.4 % 0.9-11.2 N MEAN PLATELET VOLUME (test c ode = MPV) 11.9 fL 7.0-9.0 H NEUTROPHIL % (test code = NT%) 80.9 % 56.0-77.0 H IMMATURE GRANULOCYTE % (test code = IG%) 0.5 % 0.0-2.0 N LYMPHOCYTE % (test code = LY%) 10.0 % 14.0-32.0 L MONOCYTE % (test code = MO%) 7.1 % 4.8-9.0 N EOSINOPHIL % (test code = EO%) 1.0 % 0.3-3.7 N BASOPHIL % (test code = BA%) 0.5 % 0.0-2.0 N NUCLEATED RBC % (test code = NRBC%) 0.0 % 0-0 N NEUTROPHIL # (test code = NT#) 3.30 x10 3/uL 2.0-7.6 N IMMATURE GRANULOCYTE # (test code = IG#) 0.02 x10 3/uL 0.00-0.03 N LYMPHOCYTE # (test code = LY#) 0.41 x10 3/uL 1.0-3.8 L MONOCYTE # (test code = MO#) 0.29 x10 3/uL 0.1-0.8 N EOSINOPHIL # (test code = EO#) 0.04 x10 3/uL 0.0-0.2 N BASOPHIL # (test code = BA#) 0.02 x10 3/uL 0.0-0.2 N NUCLEATED RBC # (test code = NRBC#) 0.00 x10 3/uL 0.0-0.1 N MANUAL DIFF REQUIRED (test c ode = MDIFF) NO BASIC METABOLIC [id number] 13:35:00* Test Item Value Reference Range Interpretation Comme nts SODIUM (test code = NA) 141 mEq/L 134-147 N POTASSIUM (test code = K) 3.9 mEq/L 3.4-5.0 N CHLORIDE (test code = CL) 101 mEq/L 100-108 N CARBON DIOXIDE (test code = CO2) 31 mEq/l 21-33 N ANION GAP (test code = GAP) 13 0-20 N GLUCOSE (test code = GLU) 158 mg/dL 70-110 H BLOOD UREA NITROGEN (test code = BUN) 26 mg/dL 7-18 H GLOMERULAR FILTRATION RATE (test code = GFR) 53.6 70-80 L Units of measure = ml/min/1.73 m2 CREATININE (test code = CREAT) 1.0 mg/dL 0.6-1.3 N CALCIUM (test code = CA) 9.6 mg/dL 8.0-10.5 N PROTHROMBIN [id number] 13:09:00* Test Item Value Reference Range Interpretation Comme nts PROTHROMBIN TIME PATIENT (test code = PTP) 18.0 SECONDS 9.3-12.9 H INTERNATIONAL NORMAL RATIO (test code = INR) 1.6 0.8-1.2 H TARGET INR BY INDICATION Indication INR1. Prophylaxis of venous thrombosis 2.0 - 3.0 (orthopedic surgery), Prophylaxis of venous thrombosis (other than high-risk surgery), Treatment of Deep Vein Thrombosis/Pulmonary Embolism, Prevention of systemic embolism - Tissue heart valves, Acute Myocardial Infarction (to prevent systemic embolism), Valvular heart disease, Atrial Fibrillation, Bileaflet mechanical valve in aortic position.2. Mechanical prosthetic valves (high risk), 2.5 - 3.5 Presence of Lupus Anticoagulant or Antiphospholipid Antibodies, Prevention of systemic embolism - Acute Myocardial Infarction (to prevent recurrent infarct). - XR CHEST 2 [id number] 00:00:00 [facility] : 1945 Sex: F FAX: Dong Christiansen MD [phone] [place]: St: PRE FAX: Colt Aguillon MD [phone] Name: KIAH GILES [facility] : 1945 Age/S: 76/F [address] [place] [address] Unit #: [id number] Loc: POPEYE Oscar, [id number] Phys: Colt Vail MD Acct: [id number] Dis Date: Status: PRE [facility] PHONE #: [phone] Exam Date: 12/12/2021 1333 FAX #: [phone] Reason: PREOP EXAMS: CPT CODE: [id number] XR CHEST 2 V 70246 PROCEDURE INFORMATION: Exam: XR Chest Exam date and time: 12/12/2021 1:33 PM Age: 76 years old Clinical indication: Other: Preop TECHNIQUE: Imaging protocol: Radiologic exam of the chest. Views: 2views. PA and Lateral COMPARISON: No relevant prior studies available. FINDINGS: Tubes, catheters and devices: Left chest cardiac device is seen with leads overlying the atrium and ventricle. Lungs: Minimal bilateral atelectasis or scarring. No consolidation. Pleural spaces: No pleural effusion. Heart/Mediastinum: Cardiomegaly with minimal central venous congestion. Vasculature: There is atherosclerotic calcification of the aorta. Bones/joints: No gross acute findings. IMPRESSION: Cardiomegaly with minimal central venous congestion. at 1531 Reported and signed by: Amina Garcia D.O. CC: Dong Fuchs MD; Colt Vail MD Technologist: RT Kimberly(Marla) Trnscrd Date/Time/By: 12/12/2021 (1530) : By: [email or web address] Orig Print D/T: S: 12/12/2021 (1530) PAGE 1 Signed Report Notes Date/Time Note Provider Source 2022-03-04 21:47:00 [id number]/hhZ+q9X91T+W 2sB/RnCEsUaE alIqhuEXMcj8yAT+4mcuhpgj6998-04-66I18:47:00 [facility] Discharge SummaryREPORT#:[id number] REPORT STATUS: SignedDATE:03/04/22 TIME: 2146 PATIENT: KIAH GILES UNIT #: [id number]#: [id number] [address] [birth year] AGE: 76 SEX: F ATTEND: Jesus Landry [facility] AUTHOR: Meryl Rosa MD * ALL edits or amendments must be made on the electronic/computer document * General InformationDate of admission:Observation Start Date: Date of admission: 01/07/22 Discharge date: 01/21/22Admission diagnosis:general weakness CAD - post CABGCHFHTNDMHLDafib OSAmorbid obesity Discharge diagnosis:general weakness CAD - post CABGCHFHTNDMHLDafib OSAmorbid obesity Hospital course: CAD -- cardiology consult [...] 01/10 Continue bowel regimen, adjust as needed if no results. Replace K.01/11 +BM. Replace K+, discussed with RN to [...] surgery, hospitalist, nephrology Free Text DxA P NotesFree text DxA P notes:general weakness CAD - post CABGCHFHTNDMHLDafib OSAmorbid obesity CAD -- cardiology consult CV surgeon [...] 01/10 Continue bowel regimen, adjust as needed if no results. Replace K.01/11 +BM. Replace K+, discussed with RN to [...] to meditech down yesterday Med Rec Med RecDischarge meds:Stop taking the following medications:IPRATROPIUM/ALBUTEROL (DUONEB 0.5 MG-3/3ML) 0.5 MG-3 MG (2.5 MG BASE)/3 ML [...] (COLACE 50 MG/5 ML) 50 MG/5 ML LIQUID 100 MILLIGRAM ORAL TWICE DAILY. Qty = [address] (PROTONIX) 40 MG TAB.DR 40 MILLIGRAM ORAL DAILY. Qty = 30 METOPROLOL TARTRATE (LOPRESSOR) 25 MG TAB 25 MILLIGRAM ORAL EVERY 12 HOURS. Qty = 30 Continue taking these medications:INSULIN GLARGINE (LANTUS) 100 UNIT/ML VIAL 20 UNIT SUBCUTANEOUS BEDTIME. Qty = 10 INSULIN GLARGINE (LANTUS) 100 UNIT/ML VIAL 30 UNIT SUBCUTANEOUS DAILY. Qty = 10 Start taking the following new medications:CLOPIDOGREL (PLAVIX) 75 MG TAB 75 MILLIGRAM ORAL [...] POTASSIUM CHLORIDE ER (KLOR-CON M20) 20 MEQ TAB.SR 20 MILLIEQUIVALENT ORAL TWICE DAILY. Qty = 60 No Refills Instructions: TAKE WITH FOOD ObjectiveHead/Eyes: atraumatic, normal conjunctiva/sclera, normal eyelids/periorb.Neck: full range of motion, non-tenderCardiovascular: normal heart sounds, regular rate rhythmRespiratory: hypoxia, on oxygenAbdomen: non-tender, normal bowel sounds, soft, no distentionExtremities: edema, moves allNeuro/CAPTAIN FIRE PREVENTION BUREAU: alert, 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, CNII-XII intact, normal speech, no motor deficits, no sensory deficitsSkin: dry, intact Discharge Instructions PCPDischarge to: Home Health wPlan of CareAdditional Discharge Routines: PCP Follow-Up, Entry Level Manager Follow-UpDiet: Diabetic Follow-up AppointmentsPCP follow-up: PCP: Dong Fuchs MD PCP follow up timeframe: In 1-2 weeksConsulting provider 1: Provider 1: René Romero MD at 2149 RPT #:[id number] OF REPORTDSDischarge zoriokr0927-47-19D44:47:00G.[id number] able for patient fzfmPXABWYEFLOECYQ3143-00-64L66:49:43 [facility] 2022-01-30 07:23:00 [id number]gMZv 75XvVKwkzBTn [facility]/4M6D6rG6Z01AVVBE7kxV1890-71-81Z58:23:[id number] [place] [address] PATIENT NAME: KIAH GILES ADMIT DATE: 01/07/22ACCOUNT NO: [id number] ROOM NO: [facility] AGE: 76 REPORT TYPE: 360 - QUERY RESPONSE DOCUMENT SEX: F ADMITTING PHYSICIAN:Jesus Landry MD ATTENDING PHYSICIAN:Jesus Landry MD Provider Query QUERY TEXT: Condition General 360MD Query related questions should be directed to: [please clarify if patient admitted to rehab with hypoxic respiratory failure (please specify if acute, chronic, other) patient with respiratory insufficiency on admission to rehabsome other more appropriate diagnosis.] The patient's Clinical Indicators include:query response 01/29 "patient recovering from hypoxemic respiratory failure on rehab" h and p 01/08; IOPOC 01/08; rehab progress notes 01/09-01/20 respiratory insufficiency-wean O2 PAS 01/07; IOPOC 01/08; rehab h and p 01/08; rehab progress notes 01/09-01/20 active comorbid conditions: hypoxic respiratory failure on BiPap Options provided:-- Respond - Create new note now-- Dismiss - Not applicable / Not valid-- Dismiss - Clinically unable to determine / Unknown-- Assign to another provider QUERY RESPONSE: patient with prior respiratory insufficiency on admission to rehab-monitored on rehab Query created by: Dianelys Bruce on 01/30/2022 7:20 AM at 0723 PATIENT NAME: KIAH GILES noteG.[id number] for patient mgifWMGQLSKPKHEHYZ4415-52-14O86:23:37 [facility] 2022-01-29 09:36:00 [id number]+yms9 /5wGMvx0RWtF U2Eki1I6aFFsEw5l0+PCPvj35925-27-35E79:36:[id number] [place] [address] PATIENT NAME: KIAH GILES ADMIT DATE: 01/07/22ACCOUNT NO: [id number] ROOM NO: G.508 AGE: 76 REPORT TYPE: 360 - QUERY RESPONSE DOCUMENT SEX: F ADMITTING PHYSICIAN:Jesus Landry MD ATTENDING PHYSICIAN:Jesus Landry MD Provider Query QUERY TEXT: Condition Respiratory 360MD Query related questions should be directed to: Based on your clinical judgment, can you provide the known or suspected condition(s) that represent(s) the clinical indicators listed below? The patient's Clinical Indicators include:h and p 01/08; IOPOC 01/08; rehab progress notes 01/09-01/20 respiratory insufficiency-wean O2 PAS 01/07; IOPOC 01/08; rehab h and p 01/08; rehab progress notes active comorbid conditions: hypoxic respiratory failure on BiPapOptions provided:-- Respiratory insufficiency, Please specify the acuity (i.e., acute, acute on chronic, chronic).-- Respiratory failure with hypoxemia, Please specify the acuity (i.e., acute, acute on chronic, chronic).-- Respiratory failure with hypercapnia, Please specify the acuity (i.e., acute, acute on chronic, chronic).-- Respiratory failure, Please specify the acuity (i.e., acute, acute on chronic, chronic).-- Cardiopulmonary arrest-- ARDS-- Other - I will add my own diagnosis-- Dismiss - Not applicable / Not valid-- Dismiss - Clinically unable to determine / Unknown-- Assign to another provider QUERY RESPONSE: PATIENT RECOVERING FORM HYPOXIC RESPIRATORY FAILUE ON REHAB. Query created by: Dianelys Bruce on 01/29/2022 8:41 AM QUERY TEXT: Clarification Conflicting Diagnosis Procedure 360MD Query related questions should be directed to: Based on your clinical judgement, please clarify the following conflicting documentation: [please clarify if patient was never a smoker ;patient with past history of smoking;patient with present smoking habit.] The patient's Clinical Indicators include:rehab h and p 01/08; adult general consult 01/08 never smoker cardiology consult 01/08; cardiology progress notes 01/09 smoker cardiothoracic surgery progress notes 01/08 former smoker Options provided:-- Respond - Create new note now-- Dismiss - Not applicable / Not valid-- Dismiss - Clinically unable to determine / Unknown-- Assign to another provider QUERY RESPONSE: Former smoker Query created by: Dianelys Bruce on 01/29/2022 8:46 AM at 0936 PATIENT NAME: KIAH GILES noteG.[id number] for patient qfajBDWDBQREKXLTYQ5498-09-22T03:37:23 [facility] 2022-01-22 10:33:00 [id number]/ iP6gSmwzT8dY ui8NhB3Gqf8xEW6NZG64hzhv7136-05-29D95:33:[address] [facility] ([facility])Cardiology Progress NoteREPORT#:[id number] REPORT STATUS: SignedDATE:01/22/22 TIME: 1033 PATIENT: KIAH GILES UNIT #: [id number]#: [id number] ROOM/BED: 508-1DOB: [birth year] AGE: 76 SEX: F ATTEND: Jesus Landry AUTHOR: Isabella Clemens * ALL edits or amendments must be made on the electronic/computer document * SubjectivePatient reports:No: complaints. Comments:States she is excited to go home. Free Text Subj NotesFree Text Subj Notes:Date of service: 01/21/2022 Objective GeneralVS/I O:Vital signs reviewedMedications:MAR not accessible Physical ExamGeneral appearance: obese, alert, awake, oriented, no acute distress, pleasant, conversationalHead/Eyes: PERRLANeck: no JVDCardiovascular: CV assessment: regular rate and rhythmRespiratory: decreased breath sounds, no distressAbdomen: soft, non-tender, normal bowel sounds, no distentionGenitourinary: no flank pain, no urinary catheterUpper extremity: UE assessment: no edemaLower extremity: LE assessment: edema (1 + pitting edema)Musculoskeletal: normal inspectionNeuro/CAPTAIN FIRE PREVENTION BUREAU: alert, 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, normal speechSkin: poor skin turgorPsychiatry: normal affect, normal mood ResultsFindings/Data:Labs not available Diagnosis, Assessment PlanProblem List/A P: 1. CAD (coronary artery disease) 2. Severe mitral regurgitation 3. Chronic a-fib 4. S/P CABG x 1 5. S/P MVR (mitral valve replacement) Plan discussed with: patient, nurse Free Text DxA P NotesFree Text DxA P Notes:Ms Giles is a 76 y/o female with PMHx of CAD, HLD, T2DM, RONA (CPAP at home), smoker, Crohn's disease, AF s/p ablation s/p PPM, and chronic lymphedema. She isrecovering from CABG and MVR. She is transferred to [facility] for inpatient rehabilitation. Cardiolgy is consulted for continuity of cardiac-related care. 1. CAD s/p CABG, MVR, and ILAA. On Plavix, aspirin, beta-delma, statin 2. Chronic AF s/p PPM/ablation. had ILAA during bypass no need for ACkeep K >4 and Mag above 2continue amiodarone, assa, plavix, bb 3. Chronic Diastolic CHF diurectics per Nephrologyon NC 2L repeat echo shows LVEF 50-54% RV dilated with severely increased pressures, MV bioprosthesis- mild to moderate stenosis, mild to moderate TR 4. Hypertension - normotensiveBP range: 114-147/66-82 (82.1-103.3) mmHgcontinue bb/cherelle 5. HyperlipidemiaContinue statins. 6. MARCELLO - resolvedper Nephrology Discharging home todayPatient follow-up with Dr. Vail in 1-2 weeks at 1035 at 1439 RPT #:[id number] OF REPORTPRProgress tzpu0832-95-53N74:33:00G.JOZR68850262-7666WCLgnxxhyk e for patient xfwzAQEXHPHVOLUKZX9846-31-98X30:35:24 ACL 2022-01-22 10:30:00 [id number]+ooYu29eebS3qabTlTaXV4dVY8s Nf6R3Xz1UzaJ SvWmLq1fllqnjrxVCkuw1x3J8198-83-62J84:30:00 [facility] CenterHospital[facility] Progress NoteREPORT#:[id number] REPORT STATUS: SignedDATE:01/22/22 TIME: 1030 PATIENT: KIAH GILES UNIT #: [id number]#: [id number] [address] AGE: 76 SEX: F ATTEND: Jesus Landry [facility] AUTHOR: Meryl Rosa MD * ALL edits or amendments must be made on the electronic/computer document * SubjectiveChief complaint:she get better. she will go home today Review of SystemsConstitutional:Denies: fever, lethargy. Respiratory:Denies: productive cough (sputum), SOB, wheezing. Cardiovascular:Denies: chest pain, DOUGLASS (dyspnea on exertion), edema. GI:Denies: abdominal pain, nausea, vomiting. Neuro:Denies: dizziness. Objective GeneralVS/I O:PATIENT WEIGHT: Weight (lb): 252Weight (oz): 13.92Weight (kg): 114.700 Medications:Active Meds + DC'd Last 24 HrsAcetazolamide (DIAMOX) 500 MG Q12HR PO (DCD) Furosemide (LASIX 40 mg/4 mL INJECTION) 40 MG BID 9A 5P IV (DCD) Amiodarone HCl (CORDARONE) 200 MG DAILY PO (DCD) Acetylcysteine (MUCOMYST FOR RT) 200 MG RTQ6H PRN PRN NEB (DCD) Sodium Chloride (SODIUM CHLORIDE) 4 ML RTBID PRN PRN NEB (DCD) Magnesium Chloride (MAG 64MG) 64 MG BID PO (DCD) Lisinopril (ZESTRIL) 2.5 MG DAILY PO (DCD) Ascorbic Acid (ASCORBIC ACID) 500 MG BID PO (DCD) Bisacodyl (DULCOLAX) 10 MG DAILY PRN PRN RECTAL (DCD) Potassium Chloride (POTASSIUM CHLORIDE 20MEQ TAB.ER) 40 MEQ DAILY PRN PRN PO (DCD) Aspirin (ASPIRIN) 81 MG DAILY PO (DCD) Clopidogrel Bisulfate (Plavix) 75 MG DAILY PO (DCD) Cyanocobalamin (Vitamin B-12 500 mcg tab) 500 MCG DAILY PO (DCD) Ferrous Sulfate (FERROUS SULFATE) 325 MG DAILY PO (DCD) Insulin Glargine (Lantus/Semglee) 30 UNIT DAILY SUBQ (DCD) Sodium Chloride (SODIUM CHLORIDE) 10 ML BID IV (DCD) Insulin Human Lispro (HUMALOG) 0 AC HS SUBQ (DCD) Pantoprazole (PROTONIX) 40 MG DAILY@0600 PO (DCD) Albuterol/Ipratropium (DUONEB) 3 ML RTQ6H NEB (DCD) Glucagon (GLUCAGON) 1 MG ASDIR PRN IM (DCD) Acetaminophen (TYLENOL) 650 MG Q4H PRN PRN PO (DCD) Bisacodyl (DULCOLAX) 5 MG DAILY PRN PRN PO (DCD) Dextrose/Water (DEXTROSE 10% IN WATER) 250 ML ASDIR PRN IV (DCD) Atorvastatin Calcium (LIPITOR) 40 MG 2100 PO (DCD) Docusate Sodium (COLACE) 100 MG BID PO (DCD) Insulin Glargine (Lantus/Semglee) 20 UNIT BEDTIME SUBQ (DCD) Melatonin (Melatonin) 3 MG BEDTIME PO (DCD) Metoprolol Tartrate (LOPRESSOR) 25 MG Q12HR PO (DCD) Ondansetron HCl (ZOFRAN ODT) 4 MG TID PRN PRN PO (DCD) Sennosides (Senna Lax 8.6 MG TABLET) 17.2 MG BEDTIME PO (DCD) Physical ExamGeneral appearance: alert, awake, orientedHead/Eyes: atraumatic, normal conjunctiva/sclera, normal eyelids/periorb.Neck: full range of motion, non-tenderCardiovascular: normal heart sounds, regular rate rhythmRespiratory: hypoxia, on oxygenAbdomen: non-tender, normal bowel sounds, soft, no distentionExtremities: edema, moves allNeuro/CAPTAIN FIRE PREVENTION BUREAU: alert, 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, CNII-XII intact, normal speech, no motor deficits, no sensory deficitsSkin: dry, intact ResultsFindings/Data:Laboratory Tests 01/21 1137 Chemistry POC Glucose (70 - 110 MG/DL) 150 H Diagnosis, Assessment PlanConsultants: cardiology, cardiovascular surgery, hospitalist, nephrology Free Text DxA P NotesFree text DxA P notes:general weakness CAD - post CABGCHFHTNDMHLDafib OSAmorbid obesity CAD -- cardiology consult CV surgeon [...] 01/10 Continue bowel regimen, adjust as needed if no results. Replace K.01/11 +BM. Replace K+, discussed with RN to [...] delay entry due to meditech down yesterday at 1032 RPT #:[id number] OF REPORTPRProgress zupl1748-24-23C89:30:00G.ZVRO37428683-1490WVDmhmxron e for patient dmskLCXELFWBTNIPIF0552-52-80V14:32:53 ACL 2022-01-20 15:28:00 [id number]/Zcw BtR3BJ9cA3YF OA1d2U3uqF5FcVU6OgJM/FCg4563-67-01Y86:28:[address] [facility] ([facility])Cardiothoracic Surgery ProgREPORT#:[id number] REPORT STATUS: SignedDATE:01/20/22 TIME: 152 PATIENT: KIAH GILES UNIT #: [id number]#: [id number] [address] AGE: 76 SEX: F ATTEND: Jesus Landry AUTHOR: Kena Macedo VISUAL EFFECTS ARTIST * ALL edits or amendments must be made on the electronic/computer document * GeneralStatus post:1. Mitral valve replacement (31 Magna valve). 2. Coronary artery bypass graft surgery x1 (ROBERTS to LAD). 3. Isolation of left atrial appendage. 4. Pericardiectomy. SubjectiveChief complaint:Follow-up CABG and MVR, isolation of left atrial appendage and pericardiectomy Review of SystemsConstitutional:Denies: fever, malaise. Allergy/Immun:Denies: allergic reaction. Respiratory:Denies: SOB. GI:Denies: abdominal pain, nausea, vomiting. Heme:Denies: bleeding. All systems rev neg: except as marked Objective GeneralVS/I OLast Documented: Result Date Time Pulse Ox 95 01/20 1934 B/P 142/63 01/20 1934 B/P Mean 89.3 01/20 1934 Temp 98.2 01/20 1934 Pulse 74 01/20 1934 Resp 18 01/20 1934 O2 Delivery Nasal cannula 01/20 1528 O2 Flow Rate 2 01/20 08 FiO2 28 01/20 2116 24 hour I O ending at 0700: 01/20 0700 01/19 1900 Intake Total 480 Output Total 433 495 Balance 47 -495 Intake, Oral 480 Number 0 0 Incontinent Voids Number Voids 4 4 Output, Urine 433 495 PATIENT WEIGHT: Weight (lb): 252Weight (oz): 13.92Weight (kg): 114.700 Physical ExamGeneral appearance: awake, no respiratory distressWound/incision: Location:sternum Site condition: edges approximatedHEENT: anictericNeck: supple/no meningismusCardiovascular: normal heart sounds, regular rate rhythmRespiratory: aerating well, symmetric expansion, no distressAbdomen: soft, non-tender, no distentionExtremities: moves allNeuro/CAPTAIN FIRE PREVENTION BUREAU: alert, 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, normal speech, no motor deficitsPsychiatry: normal affect, normal mood Current MedicationsMedications:Active Meds + DC'd Last 24 HrsAcetazolamide (DIAMOX) 500 MG Q12HR PO Furosemide (LASIX 40 mg/4 mL INJECTION) 40 MG BID 9A 5P IV Amiodarone HCl (CORDARONE) 200 MG DAILY PO Acetylcysteine (MUCOMYST FOR RT) 200 MG RTQ6H PRN PRN NEB Sodium Chloride (SODIUM CHLORIDE) 4 ML RTBID PRN PRN NEB Magnesium Chloride (MAG 64MG) 64 MG BID PO Lisinopril (ZESTRIL) 2.5 MG DAILY PO Ascorbic Acid (ASCORBIC ACID) 500 MG BID PO Bisacodyl (DULCOLAX) 10 MG DAILY PRN PRN RECTAL Potassium Chloride (POTASSIUM CHLORIDE 20MEQ TAB.ER) 40 MEQ DAILY PRN PRN PO Aspirin (ASPIRIN) 81 MG DAILY PO Clopidogrel Bisulfate (Plavix) 75 MG DAILY PO Cyanocobalamin (Vitamin B-12 500 mcg tab) 500 MCG DAILY PO Ferrous Sulfate (FERROUS SULFATE) 325 MG DAILY PO Insulin Glargine (Lantus/Semglee) 30 [...] Dextrose/Water (DEXTROSE 10% IN WATER) 250 ML ASDIR PRN IV (CKD) Atorvastatin Calcium (LIPITOR) 40 MG 2100 PO Docusate Sodium (COLACE) 100 MG BID PO Insulin Glargine (Lantus/Semglee) 20 UNIT BEDTIME SUBQ Melatonin (Melatonin) 3 MG BEDTIME PO Metoprolol Tartrate (LOPRESSOR) 25 MG Q12HR PO Ondansetron HCl (ZOFRAN ODT) 4 MG TID PRN PRN PO Sennosides (Senna Lax 8.6 MG TABLET) 17.2 MG BEDTIME PO ResultsFindings/Data:Laboratory Tests 01/20 01/20 01/20 01/20 1945 1528 1116 0548 Chemistry POC Glucose (70 - 110 MG/DL) 196 H 207 H 161 H 112 H Diagnosis, Assessment PlanHospital course to date:This very pleasant 76-year-old female, from [facility], with past medical history of macular degeneration, obesity, obstructive sleep apnea (CPAP at home), former smoker, hypertension, hyperlipidemia, diabetes, Crohn's disease, chronic atrial fibrillation status post 3 ablations in the past (on Xarelto), pacemaker placement who had a recent admission to the hospital with heart failure symptoms. She has been admitted to the hospital today for elective heartcath. Coronary angiogram showed severe multivessel coronary artery disease not suitable for percutaneous intervention. s/p 1. Mitral valve replacement (31 Magna valve).2. Coronary artery bypass graft surgery x1 (ROBERTS to LAD).3. Isolation of left atrial appendage.4. Pericardiectomy. 01/20 She is alert and oriented, no respiratory distress Sternal incision intact and healing. Continue sternal precautions for 6 weeksEchocardiogram noted. Encourage I-S and ambulationDiuresis by nephrology. Replace electrolytesContinue rehab Consultants: cardiology, cardiovascular surgery, hospitalist, nephrology at 2021 at 2243 RPT #:[id number] OF REPORTPRProgress madd4675-33-85D32:28:00G.GQVK52764550-4162JKEqhipqzi e for patient lljjJXZGHNMBUWIEUG9879-16-48W85:21:50 [facility] 2022-01-20 12:55:00 [id number]5G+/ 4tjnTwAGrkmj pYIqQ+fJMG3xufTwpAkO9Gr30092-34-34D85:55:[address] [facility] ([facility])Rehab Team ConferenceREPORT#:[id number] REPORT STATUS: SignedDATE:01/20/22 TIME: 1255 PATIENT: KIAH GILES UNIT #: [id number]#: [id number] [facility]DOB: [birth year] AGE: 76 SEX: F ATTEND: Jesus Landry AUTHOR: Jesus Landry MD * ALL edits or amendments must be made on the electronic/computer document * Rehabilitation Team Conference Weekly Team ConferenceTeam conf information:Date of conference: 01/20/22Conference type: InterimConference scribe: Dione Bray PTA INTERDISCIPLINARY TEAM MEETING PARTICIPANTS: TITLE NAME MD LAURA Aguilar, RN PT Moshe Benton, PT OT Gabriele Delgado, OT CM/TIFFANY Leone, LANDRY Arroyo, POISER BALANCE [facility] Luda Correa, REYNALDO Staff (8) NO ATTENDEE Staff (9) NO ATTENDEE OTHER NAME [employer] 1 STEFANO PERRY DIETITIAN 2 FUNCTIONAL CHANGE: TYPE ADMISSION TOTAL INTERIM TOTAL CHANGE Self care 19 31 12 Transfer 23 26 3 Mobility 11 22 11 Wheelchair distance: 150 ftMobility description: BOWEL AND BLADDER STATUS: Bowel continence admission rating: Bladder continence admission rating: Always continentBowel and bladder team conference update: CONTINENT WITH BOTH BLADDER AND BOWEL FUNCTION. INTERDISCIPLINARY TEAM UPDATES: DALILA team conference update: PATIENT IS CURRENTLY RECEIVING IV LASIX TWICE A DAY.SHE IS ALSO ON 2L OF OXYGEN VIA NASAL CANNULA AND HAS SCHEDULED BREATHING TREATMENTS WITH RT. SHE IS FOR DAILY WEIGHTS. BLADDER SCAN BID X 3 DAYS. PATIENTDID NOT SLEEP WELL TONIGHT DUE TO URINARY FREQUENCY. AOx4. PT team conference update: PROGRESS-GOOD PT COMPLETES ALL ACTIVIIES WITH FREQUENT REST STOPS DUE TO FATIGUE,ON 2L OF 02 WITH ACTIVITIES CUES WITH PURSED LIP BREATHING,COMPLETE FAMILY TRAINING AND CAR TRANSFER. GAIT 100'X2 SBA FOR SAFETY. DME-HEAVY DUTY RW HHOT team conference update: PROGRESS: FAIR ADLS: MOD I TO TOTAL A BARRIERS: DECREASED SELF CARE, SELF LIMITING BEHAVIOR, LOW ENDURANCEST team conference update: CM or SW team conference update: PT LIVES AT HOME WITH DAUGHTER. PLAN FOR HER TODISCHARGE TO HOME IN [place] WITH HOME HEALTH AND DMEOther discipline update 1: PO INTAKE: 25-5% OF A DIABETIC DIET WITH HANNAH TIDOther discipline update 2: Other discipline update 3: REHAB DC GOALS: Patient's identified discharge goal: PT: Pt ABLE TO WALK Eating discharge goal: Independent (6) Shower/bathe self discharge goal: Independent (6) Upper body dressing discharge goal: Independent (6) Lower body dressing discharge goal: Independent (6) Chair/bed to chair transfer discharge goal: Independent (6) Transfer on/off toilet or commode discharge goal: Independent (6) Walking 50 feet with two turns discharge goal: Independent (6) Walking 150 feet discharge goal: Independent (6) Four steps discharge goal: Partial/moderate asst (3) Twelve steps discharge goal: Not applicable [place] 150 feet discharge goal: Supervise/touch asst (4) Goal 1 - Bowel function: PT WILL MAINTAIN NORMAL BOWEL FUNCTION IN REHAB STAYGoal 2 - Bladder function: PT WILL MAINTAIN NORMAL BLADDER FUNCITON IN REHAB STAYNursing goal 3: PT WILL MAINTAIN SKIN INTEGRITYNursing goal 4: PT WILL REMAIN FREE OF FALLS AND INJURIES THROUGHOUT REHAB STAYNursing goal 5: DISCHARGE PLANNING: Barriers to discharge: DEFICITS W ADLS , IMPAIRED ENDURANCE, STERNAL PREACVUTIONSStrategies for D/C barriers: ADL TRAINING, ENDURANCE TRAINING, COMPENSATORY STRATEGIESEstimated length of stay in days: 14Anticipated discharge date: 01/21/22Discharge date adjustment comment: PENDING MEDICAL CLEARANCEIdentified financial and/or community resource needs: Family/Caregiver training days: PT AND FAMILY WILL BE EDUCATED ON THE USE OF THEGAIT BELT TO LOWER THE PT TO THE FLOOR IN THE EVENT OF LOSS OF BALANCE TO PREVENT FALL OR INJURY. FAMILY TRAINING COMPLETED ON 01/19/22Independence day (DATE): 01/20/22Expected discharge destination: Home Anticipated services upon discharge: Occupational therapy, Physical therapy, Home health, NursingAnticipated discharge equipment: RW, WC-20" Impairment group: neurologic conditions NOTE Document ONLY ONE Impairment Group Neurologic conditions: neuromuscular disordersEtiologic diagnosis:Critical illness myopathyReview of comorbidities:CAD, MITRAL VALVE REPLACEMENT 12/23, CORONARY ARTERY BYPASS, Pericardiectomy., OBESITY, RONA, HTN, HLD, DIABETES, CROHN'S DISEASE, CHRONIC A FIB, PACEMAKER, ANEMIA, HYPOXIC RESPIRATORY FAILURE, on BiPap Review/RecommendationsAttestation:This interdisciplinary team conference was led by me and I concur with all decisions made during the team conference and revisions to the individualized overall plan of care. IRF cont stay criteriaSee my note at 1256 RPT #:[id number] OF REPORTCLClinical hvzj2937-56-53C69:55:00G.[id number] e for patient vkjwNKGWXMQXBRMLAW2645-04-67M06:56:33 HC ACL 2022-01-20 11:09:00 [id number] Flmvw3rhp0U5 lXDTsOhbZeKBCJ6wm/19+4yv0434-13-11O76:09:[address] [facility] ([facility])Cardiology Progress NoteREPORT#:[id number] REPORT STATUS: SignedDATE:01/20/22 TIME: 1109 PATIENT: KIAH GILES UNIT #: [id number]#: [id number] [address] AGE: 76 SEX: F ATTEND: Jesus Landry [facility] AUTHOR: Jillian Lane NP * ALL edits or amendments must be made on the electronic/computer document * SubjectiveChief complaint:stable in rehab Objective GeneralVS/I O:Laboratory Tests 01/19/22 0445:[Embedded Image Not Available]Current Medications Sig/Frankie Start time Last Medication Dose Route Stop Time Status Admin Acetazolamide 500 MG Q12HR 01/19 2100 AC 01/20 PO 01/26 2059 0737 Furosemide 40 MG BID 9A 5P 01/18 1700 AC 01/20 IV 02/17 1659 0736 Amiodarone HCl 200 MG DAILY 01/15 0900 AC 01/20 PO 02/14 0859 0736 Acetazolamide 250 MG Q12HR 01/14 2100 DC 01/19 PO 01/21 205 0907 Acetylcysteine 200 MG RTQ6H PRN PRN 01/14 1430 AC NEB 02/13 1416 Sodium Chloride 4 ML RTBID PRN PRN 01/14 1430 AC NEB 02/13 1417 Magnesium Chloride 64 MG BID 01/12 1100 AC 01/20 PO 02/11 1059 0737 Lisinopril 2.5 MG DAILY 01/10 1400 AC 01/20 PO 02/09 1359 0737 Ascorbic Acid 500 MG BID 01/09 2100 AC 01/20 PO 02/08 2059 0736 Bisacodyl 10 MG DAILY PRN PRN 01/09 1115 AC RECTAL 02/08 1114 Potassium Chloride 40 MEQ DAILY PRN PRN 01/08 1100 AC 01/11 PO 02/07 1059 0952 Aspirin 81 MG DAILY 01/08 0900 AC 01/20 PO 02/07 0859 0736 Clopidogrel Bisulfate 75 MG DAILY 01/08 09 AC 01/20 PO 02/07 0859 0736 Cyanocobalamin 500 MCG DAILY 01/08 09 AC 01/20 PO 02/07 0859 0736 Ferrous Sulfate 325 MG DAILY 01/08 09 AC 01/20 PO 02/07 0859 0737 Insulin Glargine 30 UNIT DAILY 01/08 09 AC 01/20 SUBQ 02/07 0859 0738 Sodium Chloride 10 ML BID 01/08 09 AC 01/20 IV 02/07 0859 0737 Insulin Human Lispro 0 AC HS 01/08 0730 AC 01/19 SUBQ 02/07 0729 1718 Pantoprazole 40 MG DAILY@0600 01/08 0600 AC 01/20 PO 02/07 0559 0517 Albuterol/Ipratropium 3 ML RTQ6H 01/08 0300 AC 01/20 NEB 02/07 0259 0802 Glucagon 1 MG ASDIR PRN 01/07 2300 AC IM 02/06 225 Acetaminophen 650 MG Q4H PRN PRN 01/07 2200 AC 01/15 PO 02/06 2159 210 Bisacodyl 5 MG DAILY PRN PRN 01/07 2200 AC PO 02/06 2159 Dextrose/Water 250 ML ASDIR PRN 01/07 2200 CKD IV 02/06 2159 Atorvastatin Calcium 40 MG 2100 01/07 2100 AC 01/19 PO 02/06 Docusate Sodium 100 MG BID 01/07 2100 AC 01/20 PO 02/0637 Insulin Glargine 20 UNIT BEDTIME 01/07 2100 AC 01/19 SUBQ 02/06 Melatonin 3 MG BEDTIME 01/07 2100 AC 01/19 PO 02/06 Metoprolol Tartrate 25 MG Q12HR 01/07 2100 AC 01/20 PO 02/06 Ondansetron HCl 4 MG TID PRN PRN 01/07 2100 AC 01/20 PO 02/064 Sennosides 17.2 MG BEDTIME 01/07 2100 AC [...] Flow FiO2 Mean Ox Delivery Rate 01/21 0820 Nasal 2 cannula 01/20 0802 95 [...] Nasal 3 cannula PATIENT WEIGHT: Weight (lb): 252Weight (oz): 13.92Weight (kg): 114.700 Physical ExamGeneral appearance: sleeping comfortably, no acute distressHead/Eyes: PERRLANeck: no JVDCardiovascular: CV assessment: regular rate and rhythmRespiratory: decreased breath sounds, no distressAbdomen: soft, non-tender, normal bowel sounds, no distentionGenitourinary: no flank pain, no urinary catheterUpper extremity: UE assessment: no edemaLower extremity: LE assessment: edema (1 + pitting edema)Musculoskeletal: normal inspectionNeuro/CAPTAIN FIRE PREVENTION BUREAU: alert, 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, normal speechSkin: poor skin turgorPsychiatry: normal affect, normal mood Diagnosis, Assessment PlanProblem List/A P: 1. CAD (coronary artery disease) 2. Severe mitral regurgitation 3. Chronic a-fib 4. S/P CABG x 1 5. S/P MVR (mitral valve replacement) Consultants: cardiology, cardiovascular surgery, hospitalist, nephrology Free Text DxA P NotesFree Text DxA P Notes:Ms Giles is a 76 y/o female with PMHx of CAD, HLD, T2DM, RONA (CPAP at home), smoker, Crohn's disease, AF s/p ablation s/p PPM, and chronic lymphedema. She isrecovering from CABG and MVR. She is transferred to [facility] for inpatient rehabilitation. Cardiolgy is consulted for continuity of cardiac-related care. 1. CAD s/p CABG, MVR, and ILAA. On Plavix, aspirin, beta-delma, statin 2. Chronic AF s/p PPM/ablation. had ILAA during bypass no need for ACkeep K >4 and Mag above 2continue amiodarone, assa, plavix, bb 3. Chronic Diastolic CHF diurectics per Nephrologyon [place] 2L repeat echo shows LVEF 50-54% RV dilated with severely increased pressures, MV bioprosthesis- mild to moderate stenosis, mild to moderate TR 4. Hypertension - normotensiveBP range: 114-147/66-82 (82.1-103.3) mmHgcontinue bb/cherelle 5. HyperlipidemiaContinue statins. 6. MARCELLO - resolvedper Nephrology ELOS 01/21 per Rehab at 1237 at 1439 RPT #:[id number] OF REPORTPRProgress tvqj7913-22-81J68:09:00G.[id number] e for patient uiaoTJOOQFLHQFXLFV7086-45-91Y72:38:08 ACL 2022-01-20 11:06:00 [id number]+t+Gwgf3AMnD2oTPOFC gzafrbkUts1c oBG848aC+Avlh3B90SnJnFvm0511-00-47P50:06:[address] [facility] ([facility])Nephrology Progress NoteREPORT#:[id number] REPORT STATUS: SignedDATE:01/20/22 TIME: 110 PATIENT: KIAH GILES UNIT #: [id number]#: [id number] [address] AGE: 76 SEX: F ATTEND: Jseus Landry [facility] AUTHOR: Suki Fuchs MD * ALL edits or amendments must be made on the electronic/computer document * SubjectiveChief complaint:CAD, S/P CABGHPI:This is a 76-year-old female who has past medical history of hypertension, diabetes, coronary artery disease, atrial fibrillation who presented with worsening shortness of breath and on further work-up was 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 She was withnormal kidney function prior to surgery and after her surgery she began to develop oliguria. Her procedure was done without any complications but after her surgery she did require pressor support for hypotension and she was intubated for respiratory acidosis and hypoxia and she was treated with vancomycin for infection treatment. She recovered kidney function and has been on diuretics for hypervolemia which has also improved significantly. he was seen in rehab today and was doing well, nursing staff reporting eating well. 01/20Feeling better , dyspnea improving. Objective GeneralVS/I O:Vital Signs: Date Time Temp Pulse Resp B/P B/P Pulse O2 O2 Flow FiO2 Mean Ox Delivery Rate 01/21 2020 [...] Urine 433 495 PATIENT WEIGHT: Weight (lb): 252Weight (oz): 13.92Weight (kg): 114.700 Physical ExamGeneral appearance: alert, awake, orientedHead/eyes: atraumatic, EOMIENT: moist mucous membranes, normal noseNeck: no JVD, no lymphadenopathyCardiovascular: normal heart sounds, regular rate and rhythmRespiratory: aerating well, clear to auscultationAbdomen: non-tender, softGenitourinary: no bladder distention, no flank painExtremities: pitting edema, no gangrene, no swelling Diagnosis, Assessment PlanFree Text A P:This is a 76-year-old female known to have hypertension, diabetes, atrial fibrillation, s/p permanent pacemaker and history of ablation presenting with shortness of breath and 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 Nephrology is following for: 1. Acute kidney injury: Most likely it is prerenal (cardiorenal), she has been hypotensive postoperatively with requirement for pressor support and inotropic support. Resolved with stable hemodynamics 2. Hypervolemia:Improved, on low dose lasix. 3. Hypokalemia: Plan to replace nd monitor closely. 4. Metabolic alkalosis secondary to diuretics. Plan to monitoe and give diamox if worsens. 01/13 1. Acute kidney injury: Resolved with stable hemodynamics. 2. Hypervolemia:Improved, on low dose lasix.Dose increased to 40 Q12H as she was looking volume overloaded. 3. Hypokalemia: Plan to replace and monitor closely. 4. Metabolic alkalosis secondary to diuretics. Plan to monitor and continue diamox. . Acute kidney injury: Resolved with stable hemodynamics. 2. Hypervolemia:Improved, on low dose lasix.Dose increased to 40 Q12H as she was looking volume overloaded.No staying well. 3. Hypokalemia: Plan to replace and monitor closely.Lisinopril helping keep herpotassium better. 4. Metabolic alkalosis secondary to diuretics. Plan to monitor and continue diamox. . Acute kidney injury: Resolved with stable hemodynamics. 2. Hypervolemia:She was complaining of worsening SOB so plan to follow chest x ray and give more lasix if she has pulmonary edema. She is on low dose Q12H. 3. Hypokalemia: Plan to replace and monitor closely.Lisinopril helping keep herpotassium better. 4. Metabolic alkalosis secondary to diuretics. Plan to monitor and continue diamox. . Acute kidney injury: Resolved with stable hemodynamics. 2. Hypervolemia:She was complaining of worsening SOB so plan to follow chest x ray and give more lasix if she has pulmonary edema. She is on low dose Q12H.Lasix switched to IV dosing so plan to continue same for today. 3. Hypokalemia: Plan to replace and monitor closely.Lisinopril helping keep herpotassium better. 4. Metabolic alkalosis secondary to diuretics. Plan to monitor and continue diamox. . Acute kidney injury: Resolved with stable hemodynamics. 2. Hypervolemia:She was complaining of worsening SOB , lasix dose switched to IV, Acetazoleamide increased to IV 500 and echocardiogram ordered after discussing with cardiology. 3. Hypokalemia: Plan to replace and monitor closely.Lisinopril helping keep herpotassium better. 4. Metabolic alkalosis secondary to diuretics. Plan to monitor and continue diamox. . Acute kidney injury: Resolved with stable hemodynamics. 2. Hypervolemia:She was complaining of worsening SOB , lasix dose switched to IV, Acetazoleamide increased to IV 500 and echocardiogram ordered after discussing with cardiology. 3. Hypokalemia: Plan to replace and monitor closely.Lisinopril helping keep herpotassium better. 4. Metabolic alkalosis secondary to diuretics. Plan to monitor and continue diamox. 5/ Dyspnea, Improving with current diuretics. Consultants: cardiology, cardiovascular surgery, hospitalist, nephrology at 2233 RPT #:[id number] OF REPORTPRProgress [id number]:06:00G.[id number] e for patient zyqiSWTWCGZVMFYGPF0793-69-23A45:33:21 ACL 2022-01-20 08:12:00 [id number]+BS6 Ix3A1OixprLE VmrwSYe/yJBqpTdsUpd1v2l+7715-04-39O57:12:00 [facility])Rehab Progress NoteREPORT#:[id number] REPORT STATUS: SignedDATE:01/20/22 TIME: 811 PATIENT: KIAH GILES UNIT #: [id number]#: [id number] [address] AGE: 76 SEX: F ATTEND: Jesus Lanrdy MDA AUTHOR: Jesus Landry MD * ALL edits or amendments must be made on the electronic/computer document * See AddendumSubjectiveChief complaint:Rehab follow-upUp in wheelchair working with occupational therapyBreathing betterDid family training and sliding board transfersUsing CPAP at nightPatient on 97 to 99% on 2 L O2NAD, eating 50-80%Decreased BLE edema+ BMDenies GOLD/N/V/D/CP14 systems reviewed and neg. except that above. Objective GeneralVS:Vital Signs: Date Time Temp Pulse Resp B/P [...] Nasal 3 cannula PATIENT WEIGHT: Weight (lb): 252Weight (oz): 13.92Weight (kg): 114.700 Medications:Active Meds + DC'd Last 24 HrsAcetazolamide (DIAMOX) 500 MG Q12HR PO Furosemide (LASIX 40 mg/4 mL INJECTION) 40 MG BID 9A 5P IV Amiodarone HCl (CORDARONE) 200 MG DAILY PO Acetazolamide (DIAMOX) 250 MG Q12HR PO (DC) Acetylcysteine (MUCOMYST FOR RT) 200 MG RTQ6H PRN PRN NEB Sodium Chloride (SODIUM CHLORIDE) 4 ML RTBID PRN PRN NEB Magnesium Chloride (MAG 64MG) 64 MG BID PO Lisinopril (ZESTRIL) 2.5 MG DAILY PO Ascorbic Acid (ASCORBIC ACID) 500 MG BID PO Bisacodyl (DULCOLAX) 10 MG DAILY PRN PRN RECTAL Potassium Chloride (POTASSIUM CHLORIDE 20MEQ TAB.ER) 40 MEQ DAILY PRN PRN PO Aspirin (ASPIRIN) 81 MG DAILY PO Clopidogrel Bisulfate (Plavix) 75 MG DAILY PO Cyanocobalamin (Vitamin B-12 500 mcg tab) 500 MCG DAILY PO Ferrous Sulfate (FERROUS SULFATE) 325 MG DAILY PO Insulin Glargine (Lantus/Semglee) 30 [...] Dextrose/Water (DEXTROSE 10% IN WATER) 250 ML ASDIR PRN IV (CKD) Atorvastatin Calcium (LIPITOR) 40 MG 2100 PO Docusate Sodium (COLACE) 100 MG BID PO Insulin Glargine (Lantus/Semglee) 20 UNIT BEDTIME SUBQ Melatonin (Melatonin) 3 MG BEDTIME PO Metoprolol Tartrate (LOPRESSOR) 25 MG Q12HR PO Ondansetron HCl (ZOFRAN ODT) 4 MG TID PRN PRN PO Sennosides (Senna Lax 8.6 MG TABLET) 17.2 MG BEDTIME PO Physical ExamGeneral appearance: alert, awake, no acute distressPsych: flat affect, alert, oriented x 3HEENT: anicteric, mucosal membranes moist, pupils reactive to light, sclera clearNeck: non-tender, supple, no JVDCardiovascular: regular rate rhythm, S1/S2, no murmurRespiratory: on oxygen, aerating well, clear bilaterallyAbdomen: obese, bowel sounds present, non-distended, soft, non-tenderSkin: dry, normal temperature, no rash, INCISIONS: CDI, sutures x 2.Musculoskeletal - general: Musculoskeletal - general: swelling (BLE-lymphedema), normal tone, calves NT,no cordsNeuro/CAPTAIN FIRE PREVENTION BUREAU: alert, 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, CNII-XII intact, no sensory deficits, MMT BUE 4/5, hips 3-/5 distal 4/5. ResultsFindings/Data:Laboratory Tests: 01/20 01/20 01/19 01/19 1116 0548 1831 1558 Chemistry POC Glucose (70 - 110 MG/DL) 161 H 112 H 197 H 166 H Laboratory Tests 01/17 01/17 01/18 01/18 01/18 1653 2009 0711 0520 1018Chemistry Sodium (134 - 147 mEq/L) 142 Potassium [...] 9.3 Ionized Calcium Gigi (1.09 - 1.30 1.15MMOL/L)Urines Urine Color (YEL/STRAW) YELLOW Urine Appearance (CLEAR) SL CLOUDY Urine pH (5.0 - 7.0) 7.0 Ur Specific [place] (1.005 - 1.030) 1.012 Urine Protein (NEGATIVE) NEGATIVE Urine Glucose (UA) (NEGATIVE) NEGATIVE Urine Ketones (NEGATIVE) NEGATIVE Urine Blood (NEGATIVE) NEGATIVE Urine Nitrite (NEGATIVE) POSITIVE Urine Bilirubin (NEGATIVE) NEGATIVE Urine Urobilinogen (0.2 - 1.0 mg/dL) 2.0 Ur Leukocyte Esterase (NEGATIVE) 1+ Urine RBC (0 - 3 RBC/HPF) 0-3 Urine WBC (0 - 3 WBC/HPF) 0-3 Ur Squamous Epith Cells (NONE SEEN 11-25/HPF) Urine Bacteria (NONE SEEN /HPF) 4+ Urine [...] % (Auto) (14.0 - 32.0 %) 8.1 [place] % (Auto) (4.8 - 9.0 %) 11.7 Eos % (Auto) (0.3 - 3.7 %) 2.3 Baso % (Auto) (0.0 - 2.0 %) 0.8 Neut # (Auto) (2.0 - 7.6 x10 3/uL) 4.66 Lymph # (Auto) (1.0 - 3.8 x10 3/uL) 0.49 [place] # (Auto) (0.1 - 0.8 x10 3/uL) 0.71 Eos # (Auto) (0.0 - 0.2 x10 3/uL) 0.14 Baso # (Auto) (0.0 - 0.2 x10 3/uL) 0.05 Abs Immat Gran (auto) (0.00 - 0.03 x10 3/uL) 0.02 Add Manual Diff NO Immature Gran % (0.0 - 2.0 %) 0.3 Nucleated RBC % (0 - 0 %) 0.0 Nucleated RBCs # (Man) (0.0 - 0.1 x10 3/uL) 0.00 01/19 01/19 01/19 01/20 01/20 1123 1558 1831 0548 1116 Chemistry POC Glucose (70 - 110 MG/DL) 136 166 197 112 161 Radiology data:Recent Impressions:RADIOLOGY - XR CHEST 1 V 01/14 0906 Report Impression - Status: SIGNED Entered: 01/14/2022 1041 IMPRESSION: Minimal vascular congestion with subsegmental atelectasis in the right midlung zone and opacity at the left lung base. Impression By: Aurora Reddy M.D.RADIOLOGY - XR CHEST 2 V 01/17 1445 Report Impression - Status: SIGNED Entered: 01/17/2022 1501 IMPRESSION: Progression of pulmonary edema.Impression By: [id number] - Phyllis Ruby M.D. Diagnosis, Assessment PlanFree Text A P:Assessment:Critical illness myopathyConstrictive pericarditisSevere mitral ziaonbptoaebrEBR07/7: Status post CABG x1 (ROBERTS to LAD), ILAp, eshezwxpvflvqu86/7: S/p MVR10: Echo-EF 55-59%, mild to moderately dilated right ventricle, LA and RA dilatation, normally functioning MV lgooxczkyhavd52/7: Echo EF 50-54%, right ventricular systolic pressures severely increased, mitral valve bioprosthesis with mild to moderate stenosis, mild to moderate tricuspid regurgitationChronic AF, s/p PPM/ablation-rate controlled-pacedVolume overload-BLE edemaHistory of lymphedemaGeneralized weaknessDeconditioningAcute blood loss anemiaHypertensionMorbid obesityHLD Crohn's diseaseSmokerHypoxic respiratory failureHypokalemia/hypomagnesemia secondary to diureticsAKI resolvedSignificant impaired ADLs, mobility, gait, balance and endurance Plan:-Comprehensive inpatient rehabilitation with physical, occupational and speech therapy 3 hours a day for 5 to 6 days per week-05/10 rehabilitation physician supervision-05/10 rehabilitation nursing care-Case management for safe discharge planning-Rehab MD to monitor comorbidities and functional progress.-Decubitus prevention-protective hydrating lotion-turn every 2 vvizz-ftkqcpg-Nvasg program-MiraLAX and Senokot-Nutrition, monitor the patient's p.o. intake, check albumin 3.5 and prealbumin,dietary consult, protein supplements.-Strict fall and safety precaution-DVT prophylaxis-SCDs/antiembolism stockings-GI hmbnfoyejef-Relpnjvb-Ohhgfgdw control-continue insulin-blood sugars good-as per cuqfonni-PGI-astvlqei-nephrology following-Respiratory insufficiency-wean O2-postop pulmonary protocol, encourage I-S, deep cough and breathing exercises, slowly improving-CAD s/p CABG, MVR, and ILAA-on DAPT post-op care per CTS-Acute/chr AF s/p PPM/ablation. Rate controlled, paced rhythm-had ILAA during bypass, no need for AC-as per cardiology-Volume njicfffi-evxjlpzy-gi diuretics, strict I's and O's Daily-HTN. BP stable-on gsltpmzuzc-NHT-Ev statins.-Crohn's disease. Per IM.-Early mobilization-OOB to chair-Work on bed mobility, transfer training, ADLs, pre-gait and gait exercises as tolerable. -Increase endurance and strength-Pain gflvepekgt-Idqgkyuyvou-kdbtfanqif, CVS, medicine, nephrology-Labs reviewed-WBC normal, hemoglobin improved 9.8 improved, platelets normal, potassium 3.5, creatinine 1.0, magnesium 1.77, BNP 232, 180 -replete potassium and magnesium as fhtaxf74/28: SOB-chest w-gvj-wvqyccqd aeration bilaterally. Residual interstitial andperihilar opacities. Subsegmental atelectasis. Residual small volume pleural effusions.-Continue CPAP at night-Encourage I-S and ambulation-BLE edema-ANA PAULA hose and elevation, exercise, diuretics-Diuresis as per wtxyrzkhbx-Pyhzqx-zltsilmj ferrous sulfate, B12, vitamin C monitor H J-jddwxv-Filwsoo rrvxcbmsb-Kcpoja-Lqiepm-Continue current medications-Sternal incision intact and healing. Continue sternal precautions for 6 weeks-Therapeutic rest break given in between due to fair activity tolerance and patient reported Omaira RPE 4 (1-10) somewhat Hard SOB during activity. -01/17: Chest x-ray: Progression of pulmonary edema on increased diuretics, LasixIV-Patient reports urinating frequently but only very small amounts. UA inconsistent with UTI, bladder scan PVR 8 cc-01/19:Hypervolemia: She was complaining of worsening SOB , lasix dose switched to IV, Acetazoleamide increased to IV 500 and echocardiogram ordered after discussing with cardiology as per renal-01/19: Echo EF 50-54%, right ventricular systolic pressures severely increased, mitral valve by bioprosthesis with mild to moderate stenosis, mild to moderate tricuspid regurgitation-01/20: Patient breathing better-Labs reviewed-hemoglobin stable 10.2, platelets 135K, chemistry stable, potassium 3.4, continue potassium replaced-repeat labs tomorrow-Advance therapies as tolerated-Patient with increased fatigue with therapy and requiring rest breaks.-Team conference Progress: DIONI MEDEIROS TRG. DAUGHTER PRESENT AND PARTICIPATE WITH GAIT TRAINING 100'X2 SBA FOR SAFETY ON 2L PT WORKING ON PURSED LIP BREATHING AND PACING WITH WALKING TO ASSIST WITH ENERGY CONSERVATION,EDUCATE PT AND DAUGHTER IN SAFETY W/TRANSFERS,SAFETY WITH FALL PERVENTION,FALL RECOVERY,SAFETY W/WALKING.PT COMPLETE CAR TRANSFER INDEP. TO ENTER /EXIT CAR PT REPORTS TO DAUGHTER SHE PREFERS A HEAVY DUTY RW VS ROLLATOR.EDUCATE DAUGHTER ON HOME SAFETY AWARENESS,SAFETY IN COMMUNITY,SAFETY W/CAR TRANSFER. PM RPlease see team note.Plan and goals discussed with the patient. I agree with the teams findingELOS: [01/21]IE-kscs-sgdyl with cysokxjr-OAWIO-GK, wheelchair, daughter to buy transport chair TT 35 min>50% with discussing with patient about team conference, discharge plan, SOB improved, progress with therapies, rehab plan of care, goals, needs, and medical issues, examination. MAR and EMR reviewed. All Questions answered.Orders: Procedure Date/time Status MAGNESIUM 01/22 400 Active CBC W/AUTO DIFF 01/22 400 Active BASIC METABOLIC PANEL 01/22 400 Active NOTIFY MD - MISCELLANEOUS 01/20 1255 Active NEB TREATMENT SUBSQ 01/20 0910 Active Consultants: cardiology, cardiovascular surgery, hospitalist, nephrologyPlan discussed with: patient, nurse, interdisc care teamRehab attestation:Face to face exam completed. Treatment plan discussed with patient. Meets continued stay criteria. Agree with interdisciplinary treatment plan. at 1255 Addendum 1: 01/21/22 0724 by Jesus Landry MD PM RPlease see team note.Plan and goals discussed with the patient. I agree with the teams findingELOS: [01/21]DG-nyrn-ofqzk with kdmfohdq-WOPTD-DD, wheelchair, daughter to buy transport chairDue to Critical illness myopathy patient has a mobility limitation that preventshim/her from performing MRADLS in the home such as transfers, showering, lower body dressing. The patient requires a walker to safely perform MRADLS in the home and a cane will not resolve the issue. The patients mobility imitations are impaired transfers, showering, mobility, lower body dressing. at 0726 RPT #:[id number] OF REPORTPRProgress nmuy3736-79-66C31:12:00G.[id number] e for patient sbzcXFESGSTWYECMHO6220-75-96S77:56:03 [facility] 2022-01-19 15:58:00 [id number]+fqYuDufxAK3kxIYKF3i8xr 2FLVoQqLq7gI h0EgSXGpymXQRFBpSCLertRN0842-04-40J37:58:925979-7781 [place] [address] PATIENT NAME: KIAH GILES ADMIT DATE: 01/07/22ACCOUNT NO: [id number] ROOM NO: [facility] [place] AGE: 76 REPORT TYPE: eECHOCARDIOGRAM REPORT SEX: F ADMITTING PHYSICIAN:Jesus Landry MD ATTENDING PHYSICIAN:Jesus Landry MD *[place], [place] [address]Phone: Xpn: [phone] Transthoracic Echocardiogram Patient: Kiah GilesStudy Date: 01/19/2022 BP: 146 / 72 Location: [place]: [id number] : 1945 Age: 76 Height: 64 in / 162.6 cmAccession#: [id number] Gender: F Weight: 251.5 lb / 114.3 kgBMI/BSA: 43.3 kg/m 2 / 2.33 m 2 *Ordering Physician: * Suki Fuchs *Interpreting Physician: * Aruna Ramos MD*Curatorial Assistant: * Bria Licona Indications: CONTINUOUS FLUID OVERLOAD. Study data: Transthoracic echocardiogram. Procedure: Transthoracicechocardiography was performed. Image quality was adequate. The studywas technically limited due to excessive abdominal air and body habitus. Complete 2D, complete spectral Doppler, and color Doppler. Location:Bedside. Patient status: Inpatient. Patient room number: 508. Studystatus: Stat. Findings Left ventricle: The cavity size is normal. Wall thickness is at theupper limits of normal. Systolic function is at the lower limits ofnormal. The estimated ejection fraction is 50-54%. Regional wall motionabnormalities cannot be excluded. Left ventricular diastolic functionparameters are indeterminate.PATIENT NAME: KIAH GILES Right ventricle: The cavity size is dilated. Systolic function is lownormal. TAPSE measurement is estimated at 11 mm. Systolic pressure isseverely increased. RVSP is estimated at 69 mmHg.Left atrium: The atrium is mildly dilated.Right atrium: The atrium is dilated.Aorta: Aortic root: The aortic root is normal in size.Aortic valve: Not well visualized. The valve is structurally normal.The valve is probably trileaflet. There is no evidence of stenosis.There is no regurgitation.Mitral valve: There is a bioprosthesis. The findings are consistentwith mild to moderate stenosis. There is no regurgitation.Tricuspid valve: The valve is structurally normal. There ismild-moderate regurgitation.Pulmonic valve: Not well visualized. The valve is structurallynormal. There is trivial regurgitation.Pericardium: There is no pericardial effusion.Pulmonary arteries:Main pulmonary artery: The artery is of normal size.Systemic veins:Inferior vena cava: The vessel is dilated. The respirophasic diameterchanges are blunted (< 50%). Measurements Left ventricle [...] E/e', avg, TDI 34 <=14 PATIENT NAME: KIAH GILES LVOT Value Ref Diam, S 2.02 cm [...] Vmax 2.52 cm 2 --------- PATIENT NAME: KIAH GILES Mitral valve Value Ref Peak E 1.81 m/sec --------- Mean v, D 1.16 m/sec --------- VTI leaflet 49.1 cm --------- coapt PHT 80 ms --------- Mean grad, D 6.2 mm Hg --------- Peak grad, D 13.9 mm Hg --------- MVA, PHT 2.8 cm 2 --------- Pulmonic valve Value Ref IN v, ED 0.8 m/sec --------- Tricuspid valve [...] of normal. The estimated ejection fraction is 50-54%. Regional wall motion abnormalities cannot be excluded. Left ventricular diastolic function parameters are indeterminate.2. Right ventricle: The cavity size is dilated. Systolic pressure is severely increased.3. Left atrium: The atrium is mildly dilated.4. Right atrium: The atrium is dilated.5. Mitral valve: There is a bioprosthesis. The findings are consistent with mild to moderate stenosis.6. Tricuspid valve: There is mild-moderate regurgitation. Prepared and electronically signed by PATIENT NAME: KIAH GILES Aruna Ramos MD01/19/2022 15:58 at 1558 PATIENT NAME: KIAH GILES :58:00G. [id number] for patient hfcjWLKPOQCYNTSECL3017-59-02H94:59:38 [facility] 2022-01-19 15:45:00 [id number]/s9eT uIbnsdgMLnu9 Up/D4Tu2BBYedYilh6I8og2o3311-59-74N77:45:[address] [facility] ([facility]Nephrology Progress NoteREPORT#:[id number] REPORT STATUS: SignedDATE:01/19/22 TIME: 1545 PATIENT: KIAH GILES UNIT #: [id number]#: [id number] [place] [facility] [place]DOB: [birth year] AGE: 76 SEX: F ATTEND: Jesus Landry [facility] AUTHOR: Suki Fuchs MD * ALL edits or amendments must be made on the electronic/computer document * SubjectiveChief complaint:CAD, S/P CABGHPI:This is a 76-year-old female who has past medical history of hypertension, diabetes, coronary artery disease, atrial fibrillation who presented with worsening shortness of breath and on further work-up was 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 She was withnormal kidney function prior to surgery and after her surgery she began to develop oliguria. Her procedure was done without any complications but after her surgery she did require pressor support for hypotension and she was intubated for respiratory acidosis and hypoxia and she was treated with vancomycin for infection treatment. She recovered kidney function and has been on diuretics for hypervolemia which has also improved significantly. 1She was seen in rehab today and was doing well, nursing staff reporting eating well. 7Complaining of SOB. Otherwise no distress. Lasix increased from PO dosing to IV.She has good urine output so no further lasix given but case discussed with cardiology and echocardiogram and IV diamox reccommended so ordered. Objective GeneralVS/I O:Vital Signs: Date Time Temp Pulse Resp B/P B/P Pulse O2 O2 Flow FiO2 Mean Ox Delivery Rate 01/20 0820 Nasal 2 cannula 01/20 0802 95 Nasal 2 cannula 01/20 0651 36.7 70 18 119/67 84.7 97 Nasal cannula 01/20 0035 Nasal 2 cannula 01/19 2352 36.6 72 18 110/59 76.4 97 Simple mask 01/196 99 Nasal 2 28 cannula 01/19 1835 [...] Urine 433 495 PATIENT WEIGHT: Weight (lb): 252Weight (oz): 13.92Weight (kg): 114.700 Physical ExamGeneral appearance: alert, awake, orientedHead/eyes: atraumatic, EOMIENT: moist mucous membranes, normal noseNeck: no JVD, no lymphadenopathyCardiovascular: normal heart sounds, regular rate and rhythmRespiratory: aerating well, clear to auscultationAbdomen: non-tender, softGenitourinary: no bladder distention, no flank painExtremities: pitting edema, no gangrene, no swelling Diagnosis, Assessment PlanFree Text A P:This is a 76-year-old female known to have hypertension, diabetes, atrial fibrillation, s/p permanent pacemaker and history of ablation presenting with shortness of breath and 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 Nephrology is following for: 1. Acute kidney injury: Most likely it is prerenal (cardiorenal), she has been hypotensive postoperatively with requirement for pressor support and inotropic support. Resolved with stable hemodynamics 2. Hypervolemia:Improved, on low dose lasix. 3. Hypokalemia: Plan to replace nd monitor closely. 4. Metabolic alkalosis secondary to diuretics. Plan to monitoe and give diamox if worsens. 01/13 1. Acute kidney injury: Resolved with stable hemodynamics. 2. Hypervolemia:Improved, on low dose lasix.Dose increased to 40 Q12H as she was looking volume overloaded. 3. Hypokalemia: Plan to replace and monitor closely. 4. Metabolic alkalosis secondary to diuretics. Plan to monitor and continue diamox. . Acute kidney injury: Resolved with stable hemodynamics. 2. Hypervolemia:Improved, on low dose lasix.Dose increased to 40 Q12H as she was looking volume overloaded.No staying well. 3. Hypokalemia: Plan to replace and monitor closely.Lisinopril helping keep herpotassium better. 4. Metabolic alkalosis secondary to diuretics. Plan to monitor and continue diamox. . Acute kidney injury: Resolved with stable hemodynamics. 2. Hypervolemia:She was complaining of worsening SOB so plan to follow chest x ray and give more lasix if she has pulmonary edema. She is on low dose Q12H. 3. Hypokalemia: Plan to replace and monitor closely.Lisinopril helping keep herpotassium better. 4. Metabolic alkalosis secondary to diuretics. Plan to monitor and continue diamox. . Acute kidney injury: Resolved with stable hemodynamics. 2. Hypervolemia:She was complaining of worsening SOB so plan to follow chest x ray and give more lasix if she has pulmonary edema. She is on low dose Q12H.Lasix switched to IV dosing so plan to continue same for today. 3. Hypokalemia: Plan to replace and monitor closely.Lisinopril helping keep herpotassium better. 4. Metabolic alkalosis secondary to diuretics. Plan to monitor and continue diamox. . Acute kidney injury: Resolved with stable hemodynamics. 2. Hypervolemia:She was complaining of worsening SOB , lasix dose switched to IV, Acetazoleamide increased to IV 500 and echocardiogram ordered after discussing with cardiology. 3. Hypokalemia: Plan to replace and monitor closely.Lisinopril helping keep herpotassium better. 4. Metabolic alkalosis secondary to diuretics. Plan to monitor and continue diamox. Consultants: cardiology, cardiovascular surgery, hospitalist, nephrology at 1104 RPT #:[id number] OF REPORTPRProgress pecm4656-02-74M35:45:00G.[id number] oskar for patient kfpvFLLFLGSDAMFQBI0748-06-83M66:05:17 [facility] 2022-01-19 11:42:00 [id number] qrIdqmVFO79A zyATj7k+2RTtt7QXH42sjbGk8782-13-30D72:42:[address] [facility] ([facility])Cardiology Progress NoteREPORT#:[id number] REPORT STATUS: SignedDATE:01/19/22 TIME: 1142 PATIENT: KIAH GILES UNIT #: [id number]#: [id number] [address] AGE: 76 SEX: F ATTEND: Jesus Landry [facility] AUTHOR: Jillian Lane NP * ALL edits or amendments must be made on the electronic/computer document * SubjectiveChief complaint:stablein rehab Objective GeneralVS/I O:Laboratory Tests 01/19/22 0445:[Embedded Image Not Available] 01/18/22 0520:[Embedded Image Not Available]Current Medications Sig/Frankie Start time Last Medication Dose Route Stop Time Status Admin Acetazolamide 500 MG Q12HR 01/19 2100 AC PO 01/26 2059 Furosemide 40 MG BID 9A 5P 01/18 1700 AC 01/19 IV 02/17 1659 0908 Amiodarone HCl 200 MG DAILY 01/15 0900 AC 01/19 PO 02/14 0859 0905 Acetazolamide 250 MG Q12HR 01/14 2100 DC 01/19 PO 01/21 205 0907 Acetylcysteine 200 MG RTQ6H PRN PRN 01/14 1430 AC NEB 02/13 1416 Sodium Chloride 4 ML RTBID PRN PRN 01/14 1430 AC NEB 02/13 1417 Magnesium Chloride 64 MG BID 01/12 1100 AC 01/19 PO 02/11 1059 0905 Lisinopril 2.5 MG DAILY 01/10 1400 AC 01/19 PO 02/09 1359 0904 Ascorbic Acid 500 MG BID 01/09 2100 AC 01/19 PO 02/08 2059 0906 Bisacodyl 10 MG DAILY PRN PRN 01/09 1115 AC RECTAL 02/08 1114 Potassium Chloride 40 MEQ DAILY PRN PRN 01/08 1100 AC 01/11 PO 02/07 1059 0952 Aspirin 81 MG DAILY 01/08 09 AC 01/19 PO 02/07 0859 0905 Clopidogrel Bisulfate 75 MG DAILY 01/08 0900 AC 01/19 PO 02/07 0859 0904 Cyanocobalamin 500 MCG DAILY 01/08 0900 AC 01/19 PO 02/07 0859 0904 Ferrous Sulfate 325 MG DAILY 01/08 09 AC 01/19 PO 02/07 0859 0907 Insulin Glargine 30 UNIT DAILY 01/08 0900 AC 01/19 SUBQ 02/07 0859 0903 Sodium Chloride 10 ML BID 01/08 0900 AC 01/19 IV 02/07 0859 0905 Insulin Human Lispro 0 AC HS 01/08 0730 AC 01/18 SUBQ 02/07 0729 1654 Pantoprazole 40 MG DAILY@0600 01/08 0600 AC 01/19 PO 02/07 0559 0533 Albuterol/Ipratropium 3 ML RTQ6H 01/08 0300 AC 01/19 NEB 02/07 0259 1427 Glucagon 1 MG ASDIR PRN 01/07 2300 AC IM 02/06 2259 Acetaminophen 650 MG Q4H PRN PRN 01/07 2200 AC 01/15 PO 02/06 Bisacodyl 5 MG DAILY PRN PRN 01/07 2200 AC PO 02/06 2159 Dextrose/Water 250 ML ASDIR PRN 01/07 2200 CKD IV 02/06 2159 Atorvastatin Calcium 40 MG 2100 01/07 2100 AC 01/18 PO 02/06 Docusate Sodium 100 MG BID 01/07 2100 AC 01/19 PO 02/06 2059 09 Insulin Glargine 20 UNIT BEDTIME 01/07 2100 AC 01/18 SUBQ 02/06 Melatonin 3 MG BEDTIME 01/07 2100 AC 01/18 PO 02/06 Metoprolol Tartrate 25 MG Q12HR 01/07 2100 AC 01/19 PO 02/06 2059 09 Ondansetron HCl 4 [...] O2 Flow FiO2 Mean Ox Delivery Rate 01/19 738 95 Nasal 2 cannula 01/19 715 36.5 71 19 146/72 96.8 97 Room air 01/19 453 73 95 01/19 453 95 Nasal 2 cannula 01/18 2255 36.4 73 17 143/61 88.4 91 01/18 2055 72 92 01/18 2055 92 Nasal 2 cannula 11/06 1935 36.6 72 18 150/80 103.2 92 CPAP 01/18 1609 36.6 73 18 124/53 76.3 92 Nasal cannula PATIENT WEIGHT: Weight (lb): 252Weight (oz): 13.92Weight (kg): 114.700 Physical ExamGeneral appearance: alert, awake, oriented, no acute distressHead/Eyes: PERRLANeck: no JVDCardiovascular: CV assessment: regular rate and rhythmRespiratory: decreased breath sounds, no distressAbdomen: soft, non-tender, normal bowel sounds, no distentionGenitourinary: no flank pain, no urinary catheterUpper extremity: UE assessment: no edemaLower extremity: LE assessment: edema (1 + pitting edema)Musculoskeletal: normal inspectionNeuro/[employer]TAIN [employer]AU: alert, 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, normal speechSkin: poor skin turgorPsychiatry: normal affect, normal mood Diagnosis, Assessment PlanProblem List/A P: 1. CAD (coronary artery disease) 2. Severe mitral regurgitation 3. Chronic a-fib 4. S/P CABG x 1 5. S/P MVR (mitral valve replacement) Consultants: cardiology, cardiovascular surgery, hospitalist, nephrology Free Text DxA P NotesFree Text DxA P Notes:Ms Giles is a 76 y/o female with PMHx of CAD, HLD, T2DM, RONA (CPAP at home), smoker, Crohn's disease, AF s/p ablation s/p PPM, and chronic lymphedema. She isrecovering from CABG and MVR. She is transferred to [facility] for inpatient rehabilitation. Cardiolgy is consulted for continuity of cardiac-related care. 1. CAD s/p CABG, MVR, and ILAA. On Plavix, aspirin, beta-delma, statin 2. Chronic AF s/p PPM/ablation. had ILAA during bypass no need for ACkeep K >4 and Mag above 2continue amiodarone, assa, plavix, bb 3. Chronic Diastolic CHF diurectics per Nephrologyon NC 2L 4. Hypertension - normotensiveBP range: 114-147/66-82 (82.1-103.3) mmHgcontinue bb/cherelle 5. HyperlipidemiaContinue statins. 6. MARCELLO - resolvedper Nephrology ELOS 01/21 per Rehab at 1451 at 0001 RPT #:[id number] OF REPORTPRProgress czmd3919-78-43Q05:42:00G.[id number] e for patient vicdHWDPPYOWZQCSJS9679-44-67Z04:51:33 [facility] 2022-01-19 09:39:00 [id number]+v/FJZa6GQFxwUph/7zybnN M8Y+sQFVkMak TUzPF4N7yrAK7gz5FnOmEvA58612-97-51Y60:39:00 [facility] Campusist Progress NoteREPORT#:[id number] REPORT STATUS: SignedDATE:01/19/22 TIME: 938 PATIENT: KIAH GILES UNIT #: [id number]#: [id number] [address] AGE: 76 SEX: F ATTEND: Jesus Landry [facility] AUTHOR: Kat Carreon APRN * ALL edits or amendments must be made on the electronic/computer document * SubjectiveChief complaint:up in chair, no new complaints Review of SystemsConstitutional:Reports: generalized weakness. Denies: chills, fever. Respiratory:Denies: SOB, wheezing. Cardiovascular:Denies: chest pain, palpitations. GI:Denies: constipation, nausea, vomiting. Neuro:Denies: headache, numbness. All systems rev neg: except as marked Objective GeneralVS/I O:Vital Signs: Date Time Temp Pulse Resp B/P B/P Pulse O2 O2 Flow FiO2 Mean Ox Delivery Rate 01/19 738 [...] scale Measurement Method PATIENT WEIGHT: Weight (lb): 252Weight (oz): 13.92Weight (kg): 114.700 Medications:Active Meds + DC'd Last 24 HrsFurosemide (LASIX 40 mg/4 mL INJECTION) 40 MG BID 9A 5P IV Amiodarone HCl (CORDARONE) 200 MG DAILY PO Acetazolamide (DIAMOX) 250 MG Q12HR PO Acetylcysteine (MUCOMYST FOR RT) 200 MG RTQ6H PRN PRN NEB Sodium Chloride (SODIUM CHLORIDE) 4 ML RTBID PRN PRN NEB Magnesium Chloride (MAG 64MG) 64 MG BID PO Furosemide (LASIX) 40 MG BID 9A 5P PO (DC) Lisinopril (ZESTRIL) 2.5 MG DAILY PO Ascorbic Acid (ASCORBIC ACID) 500 MG BID PO Bisacodyl (DULCOLAX) 10 MG DAILY PRN PRN RECTAL Potassium Chloride (POTASSIUM CHLORIDE 20MEQ TAB.ER) 40 MEQ DAILY PRN PRN PO Aspirin (ASPIRIN) 81 MG DAILY PO Clopidogrel Bisulfate (Plavix) 75 MG DAILY PO Cyanocobalamin (Vitamin B-12 500 mcg tab) 500 MCG DAILY PO Ferrous Sulfate (FERROUS SULFATE) 325 MG DAILY PO Insulin Glargine (Lantus/Semglee) 30 [...] Dextrose/Water (DEXTROSE 10% IN WATER) 250 ML ASDIR PRN IV (CKD) Atorvastatin Calcium (LIPITOR) 40 MG 2100 PO Docusate Sodium (COLACE) 100 MG BID PO Insulin Glargine (Lantus/Semglee) 20 UNIT BEDTIME SUBQ Melatonin (Melatonin) 3 MG BEDTIME PO Metoprolol Tartrate (LOPRESSOR) 25 MG Q12HR PO Ondansetron HCl (ZOFRAN ODT) 4 MG TID PRN PRN PO Sennosides (Senna Lax 8.6 MG TABLET) 17.2 MG BEDTIME PO Physical ExamGeneral appearance: alert, awake, orientedHead/Eyes: atraumatic, normal conjunctiva/sclera, normal eyelids/periorb.Neck: full range of motion, non-tenderCardiovascular: normal heart sounds, regular rate rhythmRespiratory: hypoxia, on oxygenAbdomen: non-tender, normal bowel sounds, soft, no distentionExtremities: edema, moves allNeuro/[employer]: alert, 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, CNII-XII intact, normal speech, no motor deficits, no sensory deficitsSkin: dry, intact ResultsFindings/Data:Laboratory Tests 01/19 0445 0445 0137 0108 Chemistry Sodium (134 - [...] H 162 H 128 H Laboratory Tests 01/19 0445 Hematology WBC (4.5 - 11.0 x10 [...] (Auto) (14.0 - 32.0 %) 8.1 L [place] % (Auto) (4.8 - 9.0 %) 11.7 H Eos % (Auto) (0.3 - 3.7 %) 2.3 Baso % (Auto) (0.0 - 2.0 %) 0.8 Neut # (Auto) (2.0 - 7.6 x10 3/uL) 4.66 Lymph # (Auto) (1.0 - 3.8 x10 3/uL) 0.49 L [place] # (Auto) (0.1 - 0.8 x10 3/uL) 0.71 Eos # (Auto) (0.0 - 0.2 x10 3/uL) 0.14 Baso # (Auto) (0.0 - 0.2 x10 3/uL) 0.05 Abs Immat Gran (auto) (0.00 - 0.03 x10 3/uL) 0.02 Add Manual Diff NO Immature Gran % (0.0 - 2.0 %) 0.3 Nucleated RBC % (0 - 0 %) 0.0 Nucleated RBCs # (Man) (0.0 - 0.1 x10 3/uL) 0.00 Laboratory Tests 01/18 1018 Urines Urine Color (YEL/STRAW) YELLOW Urine Appearance (CLEAR) SL CLOUDY Urine pH (5.0 - 7.0) 7.0 Ur Specific [place] (1.005 - 1.030) 1.012 Urine Protein (NEGATIVE) [...] Mucus (NONE SEEN /LPF) TRACE Diagnosis, Assessment PlanConsultants: cardiology, cardiovascular surgery, hospitalist, nephrology Free Text DxA P NotesFree text DxA P notes:general weakness CAD - post CABGCHFHTNDMHLDafib OSAmorbid obesity CAD -- cardiology consult CV surgeon [...] 01/10 Continue bowel regimen, adjust as needed if no results. Replace K.01/11 +BM. Replace K+, discussed with RN to [...] continue PT/OT 01/19 Continue care in rehab. at 1208 at 1258 RPT #:[id number] OF REPORTPRProgress lunc7901-18-01E91:39:00G.[id number] e for patient oomoXRYSMKFIPZYEII7002-60-15P22:09:01 [facility] 2022-01-19 07:24:00 [id number] GstkfCi3pqhO hnId9/GEV8RZhMUwy5DII2Wk8996-06-32K01:24:00 [facility] Progress NoteREPORT#:[id number] REPORT STATUS: SignedDATE:01/19/22 TIME: 723 PATIENT: KIAH GILES UNIT #: [id number]#: [id number] [address] AGE: 76 SEX: F ATTEND: Jesus Landry [facility] AUTHOR: Jesus Landry MD * ALL edits or amendments must be made on the electronic/computer document * SubjectiveChief complaint:Rehab follow-upUp in wheelchair working with occupational therapyIn gym, still has SOBUsing CPAP at nightPatient on 97 to 99% on 2 L O2NAD, eating 50-80%Decreased BLE edema+ BMDenies GOLD/N/V/D/CP14 systems reviewed and neg. except that above. Objective GeneralVS:Vital Signs: Date Time Temp Pulse Resp B/P B/P Pulse O2 O2 Flow FiO2 Mean Ox Delivery Rate 01/19 738 95 Nasal 2 cannula 01/19 715 97.7 71 19 146/72 96.8 97 Room air 01/19 453 73 95 01/19 453 95 Nasal 2 cannula 01/18 2255 97.5 73 17 143/61 88.4 91 01/18 2055 72 92 01/18 2055 92 Nasal 2 cannula 01/18 1935 97.9 72 18 150/80 103.2 92 CPAP 06 1609 97.9 73 18 124/53 76.3 92 Nasal cannula PATIENT WEIGHT: Weight (lb): 252Weight (oz): 13.92Weight (kg): 114.700 Medications:Active Meds + DC'd Last 24 HrsAcetazolamide (DIAMOX) 500 MG Q12HR PO Furosemide (LASIX 40 mg/4 mL INJECTION) 40 MG BID 9A 5P IV Amiodarone HCl (CORDARONE) 200 MG DAILY PO Acetazolamide (DIAMOX) 250 MG Q12HR PO (DC) Acetylcysteine (MUCOMYST FOR RT) 200 MG RTQ6H PRN PRN NEB Sodium Chloride (SODIUM CHLORIDE) 4 ML RTBID PRN PRN NEB Magnesium Chloride (MAG 64MG) 64 MG BID PO Lisinopril (ZESTRIL) 2.5 MG DAILY PO Ascorbic Acid (ASCORBIC ACID) 500 MG BID PO Bisacodyl (DULCOLAX) 10 MG DAILY PRN PRN RECTAL Potassium Chloride (POTASSIUM CHLORIDE 20MEQ TAB.ER) 40 MEQ DAILY PRN PRN PO Aspirin (ASPIRIN) 81 MG DAILY PO Clopidogrel Bisulfate (Plavix) 75 MG DAILY PO Cyanocobalamin (Vitamin B-12 500 mcg tab) 500 MCG DAILY PO Ferrous Sulfate (FERROUS SULFATE) 325 MG DAILY PO Insulin Glargine (Lantus/Semglee) 30 [...] Dextrose/Water (DEXTROSE 10% IN WATER) 250 ML ASDIR PRN IV (CKD) Atorvastatin Calcium (LIPITOR) 40 MG 2100 PO Docusate Sodium (COLACE) 100 MG BID PO Insulin Glargine (Lantus/Semglee) 20 UNIT BEDTIME SUBQ Melatonin (Melatonin) 3 MG BEDTIME PO Metoprolol Tartrate (LOPRESSOR) 25 MG Q12HR PO Ondansetron HCl (ZOFRAN ODT) 4 MG TID PRN PRN PO Sennosides (Senna Lax 8.6 MG TABLET) 17.2 MG BEDTIME PO Functional ProgressFunctional progress: - - OT INTERIM CARE - - Eating: Yes Oral hygiene: Yes Shower/bathing: Yes Dressing upperbody: Yes Dressing lowerbody: Yes Footwear: Yes - - OT INTERIM EATING - - Patient eats by mouth: Yes Eats by mouth independently: Yes Interim eating CARE score: Independent (6) - - OT INTERIM ORAL HYGIENE - - Patient performed oral hygiene: Yes Performed oral hygiene independently: Yes Interim oral hygiene CARE score: Independent (6) - - OT INTERIM SHOWER/BATHING - - Patient bathed or showered: Yes Bathed or showered self independently: No Required setup or cleanup ONLY to bathe or showerself: Yes Interim bathing CARE score: Setup or cleanup (5) - - OT INTERIM DRESSING UPPER BODY - - Patient dressed/undressed upperbody: Yes Dressed/undressed upper body independently: No Required setup or cleanup ONLY to dress/undress upperbody: No Required spv/verbal cues/CGA ONLY to dress/undress upperbody: Yes Interim upper body dressing CARE score: Supervision/touch (4) - - OT INTERIM DRESSING LOWER BODY - - Patient dressed/undressed lowerbody: Yes Dressed/undressed lower body independently: No Required setup or cleanup ONLY to dress/undress lowerbody: No Required spv/verbal cues/CGA ONLY to dress/undress lowerbody: Yes Interim lower body dressing CARE score: Supervision/touch (4) - - OT INTERIM FOOTWEAR - - Patient put on/removed footwear: Yes Put on/removed footwear independently: No Required setup or cleanup ONLY to put on/remove footwear: No Required spv/verbal cues/CGA ONLY to put on/remove footwear: No Put on/removed footwear: Pt does no effort Interim footwear CARE score: Dependent (1) Put on/removed footwear CARE comment: COMPRESSION SOCKS Physical ExamGeneral appearance: alert, awake, no acute distressPsych: flat affect, alert, oriented x 3HEENT: anicteric, mucosal membranes moist, pupils reactive to light, sclera clearNeck: non-tender, supple, no JVDCardiovascular: regular rate rhythm, S1/S2, no murmurRespiratory: on oxygen, aerating well, clear bilaterallyAbdomen: obese, bowel sounds present, non-distended, soft, non-tenderSkin: dry, normal temperature, no rash, INCISIONS: CDI, sutures x 2.Musculoskeletal - general: Musculoskeletal - general: swelling (BLE-lymphedema), normal tone, calves NT,no cordsNeuro/CAPTAIN FI[employer] PRE[employer]ION B[employer]AU: alert, 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, CNII-XII intact, no sensory deficits, MMT BUE 4/5, hips 3-/5 distal 4/5. ResultsFindings/Data:Laboratory Tests: 01/19 01/19 01/19 01/19 1123 0622 0445 0445Chemistry Sodium (134 - 147 mEq/L) 141 Potassium [...] B-Natriuretic Peptide (0 - 100 PG/ML) 241.0 HHematology WBC (4.5 - 11.0 x10 3/uL) 6.1 [...] (Auto) (14.0 - 32.0 %) 8.1 L [place] % (Auto) (4.8 - 9.0 %) 11.7 H Eos % (Auto) (0.3 - 3.7 %) 2.3 Baso % (Auto) (0.0 - 2.0 %) 0.8 Neut # (Auto) (2.0 - 7.6 x10 3/uL) 4.66 Lymph # (Auto) (1.0 - 3.8 x10 3/uL) 0.49 L [place] # (Auto) (0.1 - 0.8 x10 3/uL) 0.71 Eos # (Auto) (0.0 - 0.2 x10 3/uL) 0.14 Baso # (Auto) (0.0 - 0.2 x10 3/uL) 0.05 Abs Immat Gran (auto) (0.00 - 0.03 0.02x10 3/uL) Add Manual Diff NO Immature Gran % (0.0 - 2.0 %) 0.3 Nucleated RBC % (0 - 0 %) 0.0 Nucleated RBCs # (Man) (0.0 - 0.1 x10 3/uL) 0.00 01/19 01/19 01/18 01/18 0137 0108 1930 1608 Chemistry POC Glucose (70 - 110 MG/DL) 77 56 L 192 H 162 H Radiology data:Recent Impressions:RADIOLOGY - XR CHEST 1 V 01/14 0906 Report Impression - Status: SIGNED Entered: 01/14/2022 1041 IMPRESSION: Minimal vascular congestion with subsegmental atelectasis in the right midlung zone and opacity at the left lung base. Impression By: AureliaTDO Herminia Reddy M.D.RADIOLOGY - XR CHEST 2 V 01/17 1445 Report Impression - Status: SIGNED Entered: 01/17/2022 1501 IMPRESSION: Progression of pulmonary edema.Impression By: [id number] - Phyllis Ruby M.D. Diagnosis, Assessment PlanFree Text A P:Assessment:Critical illness myopathyConstrictive pericarditisSevere mitral mqhlucoqqwekrUXY67/: Status post CABG x1 (ROBERTS to LAD), ILAp, lfnxsbkzotqoma59: S/p MVR1: Echo-EF 55-59%, mild to moderately dilated right ventricle, LA and RA dilatation, normally functioning MV bioprosthesisChronic AF, s/p PPM/ablation-rate controlled-pacedVolume overload-BLE edemaHistory of lymphedemaGeneralized weaknessDeconditioningAcute blood loss anemiaHypertensionMorbid obesityHLD Crohn's diseaseSmokerHypoxic respiratory failureHypokalemia/hypomagnesemia secondary to diureticsAKI resolvedSignificant impaired ADLs, mobility, gait, balance and endurance Plan:-Comprehensive inpatient rehabilitation with physical, occupational and speech therapy 3 hours a day for 5 to 6 days per week-05/10 rehabilitation physician supervision-05/10 rehabilitation nursing care-Case management for safe discharge planning-Rehab MD to monitor comorbidities and functional progress.-Decubitus prevention-protective hydrating lotion-turn every 2 icmtx-fhjfvbp-Lzwmk program-MiraLAX and Senokot-Nutrition, monitor the patient's p.o. intake, check albumin 3.5 and prealbumin,dietary consult, protein supplements.-Strict fall and safety precaution-DVT prophylaxis-SCDs/antiembolism stockings-GI ahjfartoddd-Fpsrmmty-Hbcrqwqn control-continue insulin-blood sugars good-as per tzkdkafg-UGM-mkvikxzz-nephrology following-Respiratory insufficiency-wean O2-postop pulmonary protocol, encourage I-S, deep cough and breathing exercises, slowly improving-CAD s/p CABG, MVR, and ILAA-on DAPT post-op care per CTS-Acute/chr AF s/p PPM/ablation. Rate controlled, paced rhythm-had ILAA during bypass, no need for AC-as per cardiology-Volume bailqcax-mphvakyf-fq diuretics, strict I's and O's Daily-HTN. BP stable-on ortlfzvbkh-SHJ-Fw statins.-Crohn's disease. Per IM.-Early mobilization-OOB to chair-Work on bed mobility, transfer training, ADLs, pre-gait and gait exercises as tolerable. -Increase endurance and strength-Pain rsqsixqeoh-Pzkofptakgx-nasnwitmuq, CVS, medicine, nephrology-Labs reviewed-WBC normal, hemoglobin improved 9.8 improved, platelets normal, potassium 3.5, creatinine 1.0, magnesium 1.77, BNP 232, 180 -replete potassium and magnesium as xbtyxj22/28: SOB-chest a-cxk-esvkeqwf aeration bilaterally. Residual interstitial andperihilar opacities. Subsegmental atelectasis. Residual small volume pleural effusions.-Continue CPAP at night-Encourage I-S and ambulation-BLE edema-ANA PAULA hose and elevation, exercise, diuretics-Diuresis as per dhntjojaqh-Biiqyt-hkwmojrb ferrous sulfate, B12, vitamin C monitor H T-ihkvbq-Rkujlei ktryctxib-Hszkdt-Qdpsxh-Continue current medications-Sternal incision intact and healing. Continue sternal precautions for 6 weeks-Therapeutic rest break given in between due to fair activity tolerance and patient reported Omaira RPE 4 (1-10) somewhat Hard SOB during activity. -01/17: Chest x-ray: Progression of pulmonary edema on increased diuretics, LasixIV-Patient reports urinating frequently but only very small amounts. UA inconsistent with UTI, bladder scan pending-Labs reviewed-hemoglobin stable 10.2, platelets 135K, chemistry stable, potassium 3.4, continue potassium replaced-Advance therapies as tolerated-Patient with increased fatigue with therapy and requiring rest breaks.-Team conference Progress: GAIT TR FT X 3 WITH RW WITH W/C FOLLOW. SPV, WITH 2 TURNS SEATED REST BREAKS D/T FATIGUE AND SOB, SPO2 AT 90 TO 92 % WITH RA W/C MOBILITY : 50 FT X 3 WITH MOD A, REPORTS DIFFICULTY WITH USE OF BLE D/T LYMPHEDEMA, BLE HEAVY PM RPlease see team note.Plan and goals discussed with the patient. I agree with the teams findingELOS: [01/21]LI-gpgq-eoyia with oemurjiw-ESVES-YV, wheelchair TT 33 min>50% with discussing with patient about SOB improved, progress with therapies, rehab plan of care, goals, needs, and medical issues, examination. MAR and EMR reviewed. All Questions answered.Orders: Procedure Date/time Status Bladder Scan 01/19 1349 Active NEB TREATMENT SUBSQ 01/19 0741 Active OXYGEN PER HOUR 01/19 0531 Complete PT GAIT TRNG 01/19 UNK Complete PT FUNCTIONAL TRN 15 MIN 01/19 UNK Complete OT FUNCTIONAL TRN 15 MIN 01/19 UNK Complete OT EXERCISE 15MIN 01/19 UNK Complete OT ADL 01/19 UNK Complete Consultants: cardiology, cardiovascular surgery, hospitalist, nephrologyPlan discussed with: patient, nurse, interdisc care teamRehab attestation:Face to face exam completed. Treatment plan discussed with patient. Meets continued stay criteria. Agree with interdisciplinary treatment plan. at [facility] #:[id number] OF REPORTPRProgress cnvs2207-86-26I76:24:00G.[id number] e for patient qlmgBHLCDNSTJDNLDN8606-51-62I57:53:25 HC ACL 2022-01-18 21:54:00 [id number]/KTe2SOuMVb4GoZODOUVHBqPd ienV62U/Qrzq sMv6KiIFEhHre7X7jFjduCtF2433-47-42W42:54:[address] [facility] ([facility])Nephrology Progress NoteREPORT#:[id number] REPORT STATUS: SignedDATE:01/18/22 TIME: 2153 PATIENT: KIAH GILES UNIT #: [id number]#: [id number] [address] AGE: 76 SEX: F ATTEND: Jesus Landry [facility] AUTHOR: Suki Fuchs MD * ALL edits or amendments must be made on the electronic/computer document * SubjectiveChief complaint:CAD, S/P CABGHPI:This is a 76-year-old female who has past medical history of hypertension, diabetes, coronary artery disease, atrial fibrillation who presented with worsening shortness of breath and on further work-up was 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 She was withnormal kidney function prior to surgery and after her surgery she began to develop oliguria. Her procedure was done without any complications but after her surgery she did require pressor support for hypotension and she was intubated for respiratory acidosis and hypoxia and she was treated with vancomycin for infection treatment. She recovered kidney function and has been on diuretics for hypervolemia which has also improved significantly. /1She was seen in rehab today and was doing well, nursing staff reporting eating well. 11/6Complaining of SOB. Otherwise no distress. Lasix increased from PO dosing to IV. Objective GeneralVS/I O:Vital Signs: Date Time Temp Pulse Resp B/P B/P Pulse O2 O2 Flow FiO2 Mean Ox Delivery Rate 01/18 2055 72 92 01/18 2055 92 Nasal 2 cannula 01/18 1935 36.6 72 18 150/80 103.2 92 CPAP 01/18 1609 36.6 73 18 124/53 76.3 92 Nasal cannula 01/18 1023 Nasal 2 cannula 01/18 0833 99 Nasal 2 cannula 01/18 0736 36.8 72 16 147/69 94.7 97 Nasal cannula 01/18 0632 Nasal 3 cannula 01/17 2356 36.7 74 16 132/75 93.7 97 24 hour I O ending at 0700: 01/18 0701/17 1900 Intake Total Output Total 450 1500 Balance -450 -1500 Number 0 0 Incontinent Voids Number Voids 2 1 Output, Urine 450 1500 PATIENT WEIGHT: Weight (lb): 252Weight (oz): 13.92Weight (kg): 114.700 Physical ExamGeneral appearance: alert, awake, orientedHead/eyes: atraumatic, EOMIENT: moist mucous membranes, normal noseNeck: no JVD, no lymphadenopathyCardiovascular: normal heart sounds, regular rate and rhythmRespiratory: aerating well, clear to auscultationAbdomen: non-tender, softGenitourinary: no bladder distention, no flank painExtremities: pitting edema, no gangrene, no swelling Diagnosis, Assessment PlanFree Text A P:This is a 76-year-old female known to have hypertension, diabetes, atrial fibrillation, s/p permanent pacemaker and history of ablation presenting with shortness of breath and 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 Nephrology is following for: 1. Acute kidney injury: Most likely it is prerenal (cardiorenal), she has been hypotensive postoperatively with requirement for pressor support and inotropic support. Resolved with stable hemodynamics 2. Hypervolemia:Improved, on low dose lasix. 3. Hypokalemia: Plan to replace nd monitor closely. 4. Metabolic alkalosis secondary to diuretics. Plan to monitoe and give diamox if worsens. 11/1 1. Acute kidney injury: Resolved with stable hemodynamics. 2. Hypervolemia:Improved, on low dose lasix.Dose increased to 40 Q12H as she was looking volume overloaded. 3. Hypokalemia: Plan to replace and monitor closely. 4. Metabolic alkalosis secondary to diuretics. Plan to monitor and continue diamox. . Acute kidney injury: Resolved with stable hemodynamics. 2. Hypervolemia:Improved, on low dose lasix.Dose increased to 40 Q12H as she was looking volume overloaded.No staying well. 3. Hypokalemia: Plan to replace and monitor closely.Lisinopril helping keep herpotassium better. 4. Metabolic alkalosis secondary to diuretics. Plan to monitor and continue diamox. . Acute kidney injury: Resolved with stable hemodynamics. 2. Hypervolemia:She was complaining of worsening SOB so plan to follow chest x ray and give more lasix if she has pulmonary edema. She is on low dose Q12H. 3. Hypokalemia: Plan to replace and monitor closely.Lisinopril helping keep herpotassium better. 4. Metabolic alkalosis secondary to diuretics. Plan to monitor and continue diamox. . Acute kidney injury: Resolved with stable hemodynamics. 2. Hypervolemia:She was complaining of worsening SOB so plan to follow chest x ray and give more lasix if she has pulmonary edema. She is on low dose Q12H.Lasix switched to IV dosing so plan to continue same for today. 3. Hypokalemia: Plan to replace and monitor closely.Lisinopril helping keep herpotassium better. 4. Metabolic alkalosis secondary to diuretics. Plan to monitor and continue diamox. Consultants: cardiology, cardiovascular surgery, hospitalist, nephrology at 2156 RPT #:[id number] OF REPORTPRProgress fega9619-62-95P56:54:00G.[id number] e for patient usbsHXWSDYZECQOUVW9656-94-13F61:56:40 ACL 2022-01-18 10:58:00 [id number]+oqPjEAQ6GrQFqyAh0pFU f0onC29gtFN1 rw8P5JhQgbR4WWT9O7Drcp9S4922-09-65O32:58:[address] [facility] ([facility])Hospitalist Progress NoteREPORT#:[id number] REPORT STATUS: SignedDATE:01/18/22 TIME: 1058 PATIENT: KIAH GILES UNIT #: [id number]#: [id number] [address] AGE: 76 SEX: F ATTEND: Jesus Landry [facility] AUTHOR: Meryl Rosa MD * ALL edits or amendments must be made on the electronic/computer document * SubjectiveChief complaint:she complaint of mild sob . Objective GeneralVS/I O:Vital Signs: Date Time Temp Pulse Resp B/P B/P Pulse O2 O2 Flow FiO2 Mean Ox Delivery Rate 01/18 1023 Nasal 2 cannula 01/19 0833 99 Nasal 2 cannula 01/19 736 36.8 72 16 147/69 94.7 97 Nasal cannula 01/18 0632 Nasal 3 cannula 01/18 2356 36.7 74 16 132/75 93.7 97 01/18 2128 73 18 154/83 106.5 91 01/17 2057 99 CPAP 01/17 2011 36.6 70 18 132/76 94.8 96 01/18 2000 Nasal 4 cannula 01/17 164 36.6 72 18 131/75 93.6 100 24 hour I O ending at 0700: 01/18 0700 01/17 1900 Intake Total Output Total 450 1500 Balance -450 -1500 Number 0 0 Incontinent Voids Number Voids 2 1 Output, Urine 450 1500 PATIENT WEIGHT: Weight (lb): 256Weight (oz): 11.65Weight (kg): 116.450 Medications:Active Meds + DC'd Last 24 HrsAmiodarone HCl (CORDARONE) 200 MG DAILY PO Acetazolamide (DIAMOX) 250 MG Q12HR PO Acetylcysteine (MUCOMYST FOR RT) 200 MG RTQ6H PRN PRN NEB Sodium Chloride (SODIUM CHLORIDE) 4 ML RTBID PRN PRN NEB Magnesium Chloride (MAG 64MG) 64 MG BID PO Furosemide (LASIX) 40 MG BID 9A 5P PO Lisinopril (ZESTRIL) 2.5 MG DAILY PO Ascorbic Acid (ASCORBIC ACID) 500 MG BID PO Bisacodyl (DULCOLAX) 10 MG DAILY PRN PRN RECTAL Potassium Chloride (POTASSIUM CHLORIDE 20MEQ TAB.ER) 40 MEQ DAILY PRN PRN PO Aspirin (ASPIRIN) 81 MG DAILY PO Clopidogrel Bisulfate (Plavix) 75 MG DAILY PO Cyanocobalamin (Vitamin B-12 500 mcg tab) 500 MCG DAILY PO Ferrous Sulfate (FERROUS SULFATE) 325 MG DAILY PO Insulin Glargine (Lantus/Semglee) 30 [...] Dextrose/Water (DEXTROSE 10% IN WATER) 250 ML ASDIR PRN IV (CKD) Atorvastatin Calcium (LIPITOR) 40 MG 2100 PO Docusate Sodium (COLACE) 100 MG BID PO Insulin Glargine (Lantus/Semglee) 20 UNIT BEDTIME SUBQ Melatonin (Melatonin) 3 MG BEDTIME PO Metoprolol Tartrate (LOPRESSOR) 25 MG Q12HR PO Ondansetron HCl (ZOFRAN ODT) 4 MG TID PRN PRN PO Sennosides (Senna Lax 8.6 MG TABLET) 17.2 MG BEDTIME PO Physical ExamGeneral appearance: alert, awake, orientedHead/Eyes: atraumatic, normal conjunctiva/sclera, normal eyelids/periorb.Neck: full range of motion, non-tenderCardiovascular: normal heart sounds, regular rate rhythmRespiratory: hypoxia, on oxygenAbdomen: non-tender, normal bowel sounds, soft, no distentionExtremities: edema, moves allNeuro/[employer]: alert, 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, CNII-XII intact, normal speech, no motor deficits, no sensory deficitsSkin: dry, intact ResultsFindings/Data:Laboratory Tests 01/18 01/18 01/17 01/17 01/17 05510 1653 1144Chemistry Sodium (134 - 147 mEq/L) 142 Potassium [...] 9.3 Ionized Calcium Gigi (1.09 - 1.30 1.15MMOL/L) Radiology data:Recent Impressions:RADIOLOGY - XR CHEST 2 V 01/17 1445 Report Impression - Status: SIGNED Entered: 01/17/2022 1501 IMPRESSION: Progression of pulmonary edema.Impression By: [id number] - Phyllis Ruby M.D. Diagnosis, Assessment PlanConsultants: cardiology, cardiovascular surgery, hospitalist, nephrology Free Text DxA P NotesFree text DxA P notes:general weakness CAD - post CABGCHFHTNDMHLDafib OSAmorbid obesity CAD -- cardiology consult CV surgeon [...] 01/10 Continue bowel regimen, adjust as needed if no results. Replace K.01/11 +BM. Replace K+, discussed with RN to [...] lasix change to iv -- continue PT/OT at 1104 RPT #:[id number] OF REPORTPRProgress uspg3415-81-81A28:58:00G.[id number] e for patient xuagAKJQDIJQJLCREJ5096-12-54E92:04:53 HC ACL 2022-01-18 06:35:00 [id number]++gqqZYxWZj8BTT8bUWAd1+ MT0AibiGsBkn mrWtc8XpC7WHZtcNNbV+ydoT9646-98-78L20:35:[address] [facility] ([facility])Rehab Progress NoteREPORT#:[id number] REPORT STATUS: SignedDATE:01/18/22 TIME: 634 PATIENT: KIAH GILES UNIT #: [id number]#: [id number] [address] AGE: 76 SEX: F ATTEND: Jesus Landry [facility] AUTHOR: Herberth Pantoja * ALL edits or amendments must be made on the electronic/computer document * SubjectiveChief complaint:Rehab follow-upSitting up in chairBreathing okayUsing CPAP at nightPatient on 97 to 99% on 3 LNAD, eating 50-80%States BLE edema improving+ BMDenies GOLD/N/V/D/CP14 systems reviewed and neg. except that above. Objective GeneralVS:Vital Signs: Date Time Temp Pulse Resp B/P B/P Pulse O2 O2 Flow FiO2 Mean Ox Delivery Rate 01/19 632 Nasal 3 cannula 01/18 2356 98.1 74 16 132/75 93.7 97 01/18 2128 73 18 154/83 106.5 91 01/17 2057 99 CPAP 01/17 2011 97.9 70 18 132/76 94.8 96 01/18 2000 Nasal 4 cannula 01/17 164 97.9 72 18 131/75 93.6 100 01/17 0756 98 Nasal 2 cannula 01/17 0734 97.3 71 19 136/78 97.0 98 Nasal cannula PATIENT WEIGHT: Weight (lb): 256Weight (oz): 11.65Weight (kg): 116.450 Functional ProgressFunctional progress:PT daily note comment: S; PT REPORTS NO COMPLAINTS OF SHARP PAIN WITH ACTIVITIES,CONTINUES TO REPORT NOT SLEEPING WEL. O: PT WAS SEEN FOR 90MIN OF THERAPY BEGINNING W/ASSIST TO RESTROOM SBA,DRESS SLEF PREQUIRES MIN-A WITH ALSOWRAPPING FEET/LOW BI LE,GAIT TRAINING W/RW50'X2,35,X4 40' EDUCATE PT ON SAFETY W/FALL PREVENTIO,FALL RECOVEYR,SAFETY RW MGMT,ATTEMPT USE OF ROLLAOR,THER EX IN SITTINGBRSDT PORTQW START OVER. A; PT MAKING STEADY PROGRESS WITH FUNCTIONAL GOALS,SLOW MOVING AT TIMES DUE TO FATIGUE.EDUCATE PT ON SAFETY W/RWMGMT. WC MOBILITY 50 SLOW MOVING,EDCATE PT ON SAFETY W/TRANSFERS,SAFETY W/.FALL PREVENTION,FALL RECOVERY. Physical ExamGeneral appearance: obese, alert, awakePsych: alert, normal affect, oriented x 3HEENT: anicteric, mucosal membranes moist, pupils reactive to light, sclera clearNeck: non-tender, supple, no JVDCardiovascular: regular rate rhythm, S1/S2, no murmurRespiratory: diminished breath sounds, on oxygen, clear bilaterallyAbdomen: obese, bowel sounds present, non-distended, soft, non-tenderSkin: dry, normal temperature, no rash, INCISIONS: CDI, sutures x 2.Musculoskeletal - general: Musculoskeletal - general: swelling (BLE-lymphedema), normal tone, calves NT,no cordsNeuro/[employer]: alert, 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, CNII-XII intact, no sensory deficits, MMT BUE 4/5, hips 3-/5 distal 4/5. ResultsFindings/Data:Laboratory Tests: 01/18 01/18 01/17 01/17 01/17 0520 052009 165 1144Chemistry Sodium (134 - 147 mEq/L) 142 Potassium [...] 9.3 Ionized Calcium Gigi (1.09 - 1.30 1.15MMOL/L) 01/17 1020 Hematology WBC (4.5 - 11.0 [...] (Auto) (14.0 - 32.0 %) 8.6 L Colquitt % (Auto) (4.8 - 9.0 %) 11.4 H Eos % (Auto) (0.3 - 3.7 %) 3.0 Baso % (Auto) (0.0 - 2.0 %) 0.5 Neut # (Auto) (2.0 - 7.6 x10 3/uL) 3.35 Lymph # (Auto) (1.0 - 3.8 x10 3/uL) 0.38 L [place] # (Auto) (0.1 - 0.8 x10 3/uL) 0.50 Eos # (Auto) (0.0 - 0.2 x10 3/uL) 0.13 Baso # (Auto) (0.0 - 0.2 x10 3/uL) 0.02 Abs Immat Gran (auto) (0.00 - 0.03 x10 3/uL) 0.02 Add Manual Diff NO Immature Gran % (0.0 - 2.0 %) 0.5 Nucleated RBC % (0 - 0 %) 0.0 Nucleated RBCs # (Man) (0.0 - 0.1 x10 3/uL) 0.00 Diagnosis, Assessment PlanFree Text A P:Assessment:Critical illness myopathyConstrictive pericarditisSevere mitral nvjmvsjzgtcxtNRW80/7: Status post CABG x1 (ROBERTS to LAD), ILAp, vdqaqrhwcfpoip14/7: S/p MVR1: Echo-EF 55-59%, mild to moderately dilated right ventricle, LA and RA dilatation, normally functioning MV bioprosthesisChronic AF, s/p PPM/ablation-rate controlled-pacedVolume overload-BLE edemaHistory of lymphedemaGeneralized weaknessDeconditioningAcute blood loss anemiaHypertensionMorbid obesityHLD Crohn's diseaseSmokerHypoxic respiratory failureHypokalemia/hypomagnesemia secondary to diureticsAKI resolvedSignificant impaired ADLs, mobility, gait, balance and endurance Plan:-Comprehensive inpatient rehabilitation with physical, occupational and speech therapy 3 hours a day for 5 to 6 days per week-05/10 rehabilitation physician supervision-05/10 rehabilitation nursing care-Case management for safe discharge planning-Rehab MD to monitor comorbidities and functional progress.-Decubitus prevention-protective hydrating lotion-turn every 2 cpkpl-nygccmb-Vysbk program-MiraLAX and Senokot-Nutrition, monitor the patient's p.o. intake, check albumin 3.5 and prealbumin,dietary consult, protein supplements.-Strict fall and safety precaution-DVT prophylaxis-SCDs/antiembolism stockings-GI soxgkakqzry-Yqnicrxd-Kjcxshbw control-continue insulin-blood sugars good-as per gcspbejd-JJX-zwrergjy-nephrology following-Respiratory insufficiency-wean O2-postop pulmonary protocol, encourage I-S, deep cough and breathing exercises, slowly improving-CAD s/p CABG, MVR, and ILAA-on DAPT post-op care per CTS-Acute/chr AF s/p PPM/ablation. Rate controlled, paced rhythm-had ILAA during bypass, no need for AC-as per cardiology-Volume mdcimaso-jpvywzjw-zw diuretics, strict I's and O's Daily-HTN. BP stable-on tondqtpkea-MRG-Bh statins.-Crohn's disease. Per IM.-Early mobilization-OOB to chair-Work on bed mobility, transfer training, ADLs, pre-gait and gait exercises as tolerable. -Increase endurance and strength-Pain uaiegyinwm-Zfatyxwoewi-kllvhvqhus, CVS, medicine, nephrology-Labs reviewed-WBC normal, hemoglobin improved 9.8 improved, platelets normal, potassium 3.5, creatinine 1.0, magnesium 1.77, BNP 232, 180 -replete potassium and magnesium as /28: SOB-chest w-xdo-ijsayxyp aeration bilaterally. Residual interstitial andperihilar opacities. Subsegmental atelectasis. Residual small volume pleural effusions.-Continue CPAP at night-Encourage I-S and ambulation-BLE edema-ANA PAULA hose and elevation, exercise, diuretics-Diuresis as per bvudadaezs-Rrszyr-vnvtjwyz ferrous sulfate, B12, vitamin C monitor H H-Monitor endqhzznx-Lewair-Ytipcn-Continue current medications-Sternal incision intact and healing. Continue sternal precautions for 6 weeks-Monitor complains of being tired and sleepy-Therapeutic rest break given in between due to fair activity tolerance and patient reported Omaira RPE 4 (1-10) somewhat Hard SOB during activity. -Patient breathing better and working with therapist-Patient reports urinating frequently but only very small amounts. Check bladder scan and UA-Labs reviewed-Advance therapies as tolerated PM RPlease see team note.Plan and goals discussed with the patient. I agree with the teams findingELOS: [01/21]DX-qhgg-acyfm with opqkiflr-JSWZP-VL, wheelchair TT 33 min>50% with discussing with patient about SOB improved, progress with therapies, rehab plan of care, goals, needs, and medical issues, examination. MAR and EMR reviewed. All Questions answered.Rehab attestation:Face to face exam completed. Treatment plan discussed with patient. Meets continued stay criteria. Agree with interdisciplinary treatment plan. at 1842 RPT #:[id number] OF REPORTPRProgress unsm3964-12-30W58:35:00G.[id number] e for patient tfajDPRVVAZCVEUORJ4784-56-55P05:42:43 HC ACL 2022-01-17 21:52:00 [id number]+B+b83e7Cb7PKSMya3Ff1 1sh7A21WFPEB N+hCtL5uzTjFdPMiaVI+Jmel6159-25-17G20:52:[address] [facility] ([facility])Nephrology Progress NoteREPORT#:[id number] REPORT STATUS: SignedDATE:01/17/22 TIME: 2151 PATIENT: KIAH GILES UNIT #: [id number]#: [id number] [address] AGE: 76 SEX: F ATTEND: Jesus Landry [facility] AUTHOR: Suki Fuchs MD * ALL edits or amendments must be made on the electronic/computer document * SubjectiveChief complaint:CAD, S/P CABGHPI:This is a 76-year-old female who has past medical history of hypertension, diabetes, coronary artery disease, atrial fibrillation who presented with worsening shortness of breath and on further work-up was 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 She was withnormal kidney function prior to surgery and after her surgery she began to develop oliguria. Her procedure was done without any complications but after her surgery she did require pressor support for hypotension and she was intubated for respiratory acidosis and hypoxia and she was treated with vancomycin for infection treatment. She recovered kidney function and has been on diuretics for hypervolemia which has also improved significantly. 1She was seen in rehab today and was doing well, nursing staff reporting eating well. 5Complaining of SOB. Otherwise no distress. Objective GeneralVS/I O:Vital Signs: Date Time Temp Pulse Resp B/P B/P Pulse O2 O2 Flow FiO2 Mean Ox Delivery Rate 01/18 2128 73 18 154/83 106.5 91 01/17 2057 99 CPAP 01/17 2011 36.6 70 18 132/76 94.8 96 01/18 2000 Nasal 4 cannula 01/17 1649 36.6 72 18 131/75 93.6 100 01/17 0756 98 Nasal 2 cannula 01/17 734 36.3 71 19 136/78 97.0 98 Nasal [...] scale Measurement Method PATIENT WEIGHT: Weight (lb): 256Weight (oz): 11.65Weight (kg): 116.450 Physical ExamGeneral appearance: alert, awake, orientedHead/eyes: atraumatic, EOMIENT: moist mucous membranes, normal noseNeck: no JVD, no lymphadenopathyCardiovascular: normal heart sounds, regular rate and rhythmRespiratory: aerating well, clear to auscultationAbdomen: non-tender, softGenitourinary: no bladder distention, no flank painExtremities: pitting edema, no gangrene, no swelling Diagnosis, Assessment PlanFree Text A P:This is a 76-year-old female known to have hypertension, diabetes, atrial fibrillation, s/p permanent pacemaker and history of ablation presenting with shortness of breath and 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 Nephrology is following for: 1. Acute kidney injury: Most likely it is prerenal (cardiorenal), she has been hypotensive postoperatively with requirement for pressor support and inotropic support. Resolved with stable hemodynamics 2. Hypervolemia:Improved, on low dose lasix. 3. Hypokalemia: Plan to replace nd monitor closely. 4. Metabolic alkalosis secondary to diuretics. Plan to monitoe and give diamox if worsens. 01/13 1. Acute kidney injury: Resolved with stable hemodynamics. 2. Hypervolemia:Improved, on low dose lasix.Dose increased to 40 Q12H as she was looking volume overloaded. 3. Hypokalemia: Plan to replace and monitor closely. 4. Metabolic alkalosis secondary to diuretics. Plan to monitor and continue diamox. . Acute kidney injury: Resolved with stable hemodynamics. 2. Hypervolemia:Improved, on low dose lasix.Dose increased to 40 Q12H as she was looking volume overloaded.No staying well. 3. Hypokalemia: Plan to replace and monitor closely.Lisinopril helping keep herpotassium better. 4. Metabolic alkalosis secondary to diuretics. Plan to monitor and continue diamox. . Acute kidney injury: Resolved with stable hemodynamics. 2. Hypervolemia:She was complaining of worsening SOB so plan to follow chest x ray and give more lasix if she has pulmonary edema. She is on low dose Q12H. 3. Hypokalemia: Plan to replace and monitor closely.Lisinopril helping keep herpotassium better. 4. Metabolic alkalosis secondary to diuretics. Plan to monitor and continue diamox. Consultants: cardiology, cardiovascular surgery, hospitalist, nephrology at 2321 RPT #:[id number] OF REPORTPRProgress pzpb2724-07-64L33:52:00G.[id number] e for patient pxekCUBGWHLHCUJWRV3556-43-71C10:21:56 [facility] 2022-01-17 13:14:00 [id number] voGaESapofLZ [id number]-40-23T15:14:00 [facility] CenterHospitalist Progress NoteREPORT#:[id number] REPORT STATUS: SignedDATE:01/17/22 TIME: 1314 PATIENT: KIAH GILES UNIT #: [id number]#: [id number] [address] AGE: 76 SEX: F ATTEND: Jesus Landry AUTHOR: Meryl Rosa MD * ALL edits or amendments must be made on the electronic/computer document * SubjectiveChief complaint:she is tire today no cp Review of SystemsConstitutional:Reports: fatigue, generalized weakness. Denies: fever, lethargy. Respiratory:Denies: pneumonia, productive cough (sputum), SOB, wheezing. Cardiovascular:Reports: edema. Denies: chest pain, DOUGLASS (dyspnea on exertion), orthopnea. GI:Denies: abdominal pain, nausea, vomiting. :Denies: flank pain. Objective GeneralVS/I O:Vital Signs: Date Time Temp Pulse Resp B/P B/P Pulse O2 O2 Flow FiO2 Mean Ox Delivery Rate 01/17 0756 98 Nasal 2 cannula 01/17 0734 36.3 71 19 136/78 97.0 98 Nasal [...] scale Measurement Method PATIENT WEIGHT: Weight (lb): 256Weight (oz): 11.65Weight (kg): 116.450 Medications:Active Meds + DC'd Last 24 HrsAmiodarone HCl (CORDARONE) 200 MG DAILY PO Acetazolamide (DIAMOX) 250 MG Q12HR PO Acetylcysteine (MUCOMYST FOR RT) 200 MG RTQ6H PRN PRN NEB Sodium Chloride (SODIUM CHLORIDE) 4 ML RTBID PRN PRN NEB Magnesium Chloride (MAG 64MG) 64 MG BID PO Furosemide (LASIX) 40 MG BID 9A 5P PO Lisinopril (ZESTRIL) 2.5 MG DAILY PO Ascorbic Acid (ASCORBIC ACID) 500 MG BID PO Bisacodyl (DULCOLAX) 10 MG DAILY PRN PRN RECTAL Potassium Chloride (POTASSIUM CHLORIDE 20MEQ TAB.ER) 40 MEQ DAILY PRN PRN PO Aspirin (ASPIRIN) 81 MG DAILY PO Clopidogrel Bisulfate (Plavix) 75 MG DAILY PO Cyanocobalamin (Vitamin B-12 500 mcg tab) 500 MCG DAILY PO Ferrous Sulfate (FERROUS SULFATE) 325 MG DAILY PO Insulin Glargine (Lantus/Semglee) 30 UNIT DAILY SUBQ Polyethylene Glycol (MIRALAX) 17 GM DAILY PO (DC) Sodium Chloride (SODIUM CHLORIDE) 10 ML BID IV Insulin Human Lispro (HUMALOG) 0 AC HS SUBQ Pantoprazole (PROTONIX) 40 MG DAILY@0600 PO Albuterol/Ipratropium (DUONEB) 3 ML RTQ6H NEB Glucagon (GLUCAGON) 1 MG ASDIR PRN IM Acetaminophen (TYLENOL) 650 MG Q4H PRN PRN PO Bisacodyl (DULCOLAX) 5 MG DAILY PRN PRN PO Dextrose/Water (DEXTROSE 10% IN WATER) 250 ML ASDIR PRN IV (CKD) Atorvastatin Calcium (LIPITOR) 40 MG 2100 PO Docusate Sodium (COLACE) 100 MG BID PO Insulin Glargine (Lantus/Semglee) 20 UNIT BEDTIME SUBQ Melatonin (Melatonin) 3 MG BEDTIME PO Metoprolol Tartrate (LOPRESSOR) 25 MG Q12HR PO Ondansetron HCl (ZOFRAN ODT) 4 MG TID PRN PRN PO Sennosides (Senna Lax 8.6 MG TABLET) 17.2 MG BEDTIME PO Physical ExamGeneral appearance: alert, awake, orientedHead/Eyes: atraumatic, normal conjunctiva/sclera, normal eyelids/periorb.Neck: full range of motion, non-tenderCardiovascular: normal heart sounds, regular rate rhythmRespiratory: hypoxia, on oxygenAbdomen: non-tender, normal bowel sounds, soft, no distentionExtremities: edema, moves allNeuro/[employer]: alert, 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, CNII-XII intact, normal speech, no motor deficits, no sensory deficitsSkin: dry, intact ResultsFindings/Data:Laboratory Tests 01/17 01/17 01/16 01/16 1144 0514 1941 1602 Chemistry POC Glucose (70 - 110 MG/DL) 132 H 119 H 200 H 127 H Laboratory Tests 01/17 1020 Hematology WBC (4.5 - 11.0 [...] (Auto) (14.0 - 32.0 %) 8.6 L [place] % (Auto) (4.8 - 9.0 %) 11.4 H Eos % (Auto) (0.3 - 3.7 %) 3.0 Baso % (Auto) (0.0 - 2.0 %) 0.5 Neut # (Auto) (2.0 - 7.6 x10 3/uL) 3.35 Lymph # (Auto) (1.0 - 3.8 x10 3/uL) 0.38 L [place] # (Auto) (0.1 - 0.8 x10 3/uL) 0.50 Eos # (Auto) (0.0 - 0.2 x10 3/uL) 0.13 Baso # (Auto) (0.0 - 0.2 x10 3/uL) 0.02 Abs Immat Gran (auto) (0.00 - 0.03 x10 3/uL) 0.02 Add Manual Diff NO Immature Gran % (0.0 - 2.0 %) 0.5 Nucleated RBC % (0 - 0 %) 0.0 Nucleated RBCs # (Man) (0.0 - 0.1 x10 3/uL) 0.00 Diagnosis, Assessment PlanConsultants: cardiology, cardiovascular surgery, hospitalist, nephrology Free Text DxA P NotesFree text DxA P notes:general weakness CAD - post CABGCHFHTNDMHLDafib OSAmorbid obesity CAD -- cardiology consult CV surgeon [...] 01/10 Continue bowel regimen, adjust as needed if no results. Replace K.01/11 +BM. Replace K+, discussed with RN to [...] no cp no sob -- continue PT/OT at 1631 RPT #:[id number] OF REPORTPRProgress iiqt0317-15-97L88:14:00G.[id number] e for patient tchcSAIJMOJYJRMUTB1215-14-63G58:32:08 ACL 2022-01-17 06:33:00 [id number]/wnSV x5Rb7sIVgrQ8 HAoCy0JlPXDam8ivgJgXq9Pb7741-54-99X29:33:00 [facility] CenterRehab Progress NoteREPORT#:[id number] REPORT STATUS: SignedDATE:01/17/22 TIME: 0633 PATIENT: KIAH GILES UNIT #: [id number]#: [id number] [address] AGE: 76 SEX: F ATTEND: Jesus Landry [facility] AUTHOR: Herberth Pantoja * ALL edits or amendments must be made on the electronic/computer document * SubjectiveChief complaint:Rehab follow-upStates doing betterUsing CPAP at nightPatient on 2 L, sats 96 %NAD, eating 50-80%BLE edema improved+ BMDenies GOLD/N/V/D/CP14 systems reviewed and neg. except that above. Objective GeneralVS:Vital Signs: Date Time Temp Pulse Resp B/P B/P Pulse O2 O2 Flow FiO2 Mean Ox Delivery Rate 01/16 233 76 94 01/16 2334 76 16 91 01/16 2318 71 18 136/71 92.6 85 01/16 2131 99 Nasal 2 cannula 01/17 2000 Nasal 2 cannula 01/16 1932 98.1 75 18 149/80 103.0 99 01/16 1530 97.7 70 17 139/72 94.3 98 01/16 1122 Nasal 2 cannula 01/16 0912 Nasal 2 cannula 01/16 0718 97.7 73 17 141/70 93.6 92 PATIENT WEIGHT: Weight (lb): 256Weight (oz): 11.65Weight (kg): 116.450 Medications:Active Meds + DC'd Last 24 HrsAmiodarone HCl (CORDARONE) 200 MG DAILY PO Acetazolamide (DIAMOX) 250 MG Q12HR PO Acetylcysteine (MUCOMYST FOR RT) 200 MG RTQ6H PRN PRN NEB Sodium Chloride (SODIUM CHLORIDE) 4 ML RTBID PRN PRN NEB Magnesium Chloride (MAG 64MG) 64 MG BID PO Furosemide (LASIX) 40 MG BID 9A 5P PO Lisinopril (ZESTRIL) 2.5 MG DAILY PO Ascorbic Acid (ASCORBIC ACID) 500 MG BID PO Bisacodyl (DULCOLAX) 10 MG DAILY PRN PRN RECTAL Potassium Chloride (POTASSIUM CHLORIDE 20MEQ TAB.ER) 40 MEQ DAILY PRN PRN PO Aspirin (ASPIRIN) 81 MG DAILY PO Clopidogrel Bisulfate (Plavix) 75 MG DAILY PO Cyanocobalamin (Vitamin B-12 500 mcg tab) 500 MCG DAILY PO Ferrous Sulfate (FERROUS SULFATE) 325 MG DAILY PO Insulin Glargine (Lantus/Semglee) 30 [...] Dextrose/Water (DEXTROSE 10% IN WATER) 250 ML ASDIR PRN IV (CKD) Atorvastatin Calcium (LIPITOR) 40 MG 2100 PO Docusate Sodium (COLACE) 100 MG BID PO Insulin Glargine (Lantus/Semglee) 20 UNIT BEDTIME SUBQ Melatonin (Melatonin) 3 MG BEDTIME PO Metoprolol Tartrate (LOPRESSOR) 25 MG Q12HR PO Ondansetron HCl (ZOFRAN ODT) 4 MG TID PRN PRN PO Sennosides (Senna Lax 8.6 MG TABLET) 17.2 MG BEDTIME PO Functional ProgressFunctional progress:PT daily note comment: S; PT REPORTS NO COMPLAINTS OF SHARP PAIN WITH ACTIVITIES,CONTINUES TO REPORT NOT SLEEPING WEL. O: PT WAS SEEN FOR 90MIN OF THERAPY BEGINNING W/ASSIST TO RESTROOM SBA,DRESS SLEF PREQUIRES MIN-A WITH ALSOWRAPPING FEET/LOW BI LE,GAIT TRAINING W/RW50'X2,35,X4 40' EDUCATE PT ON SAFETY W/FALL PREVENTIO,FALL RECOVEYR,SAFETY RW MGMT,ATTEMPT USE OF ROLLAOR,THER EX IN SITTINGBRSDT PORTQW START OVER. A; PT MAKING STEADY PROGRESS WITH FUNCTIONAL GOALS,SLOW MOVING AT TIMES DUE TO FATIGUE.EDUCATE PT ON SAFETY W/RWMGMT. WC MOBILITY 50 SLOW MOVING,EDCATE PT ON SAFETY W/TRANSFERS,SAFETY W/.FALL PREVENTION,FALL RECOVERY. P; CONT. WITH PT PCO. Physical ExamGeneral appearance: alert, awakePsych: alert, normal affect, oriented x 3HEENT: anicteric, mucosal membranes moist, pupils reactive to light, sclera clearNeck: non-tender, supple, no JVDCardiovascular: regular rate rhythm, S1/S2, no murmurRespiratory: diminished breath sounds, on oxygen, clear bilaterallyAbdomen: obese, bowel sounds present, non-distended, soft, non-tenderSkin: dry, normal temperature, no rash, INCISIONS: CDI, sutures x 2.Musculoskeletal - general: Musculoskeletal - general: swelling (BLE-lymphedema), normal tone, calves NT,no cordsNeuro/[employer]: alert, 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, CNII-XII intact, no sensory deficits, MMT BUE 4/5, hips 3-/5 distal 4/5. ResultsFindings/Data:Laboratory Tests 01/1714 1941 1602 1139 0604 Chemistry [...] MG/DL) 154 H 113 H 57 L 186 H 183 H 01/14 1059 Chemistry POC Glucose (70 - 110 MG/DL) 114 H Recent Impressions:RADIOLOGY - XR CHEST 1 V 01/14 906 Report Impression - Status: SIGNED Entered: 01/14/2022 1041 IMPRESSION: Minimal vascular congestion with subsegmental atelectasis in the right midlung zone and opacity at the left lung base. Impression By: Aurora - Maurice Reddy M.D. Diagnosis, Assessment PlanFree Text A P:Assessment:Critical illness myopathyConstrictive pericarditisSevere mitral ywerrwempqjknERW53/7: Status post CABG x1 (ROBERTS to LAD), ILAp, xvqtcxqjeefcec94/7: S/p MVR1: Echo-EF 55-59%, mild to moderately dilated right ventricle, LA and RA dilatation, normally functioning MV bioprosthesisChronic AF, s/p PPM/ablation-rate controlled-pacedVolume overload-BLE edemaHistory of lymphedemaGeneralized weaknessDeconditioningAcute blood loss anemiaHypertensionMorbid obesityHLD Crohn's diseaseSmokerHypoxic respiratory failureHypokalemia/hypomagnesemia secondary to diureticsAKI resolvedSignificant impaired ADLs, mobility, gait, balance and endurance Plan:-Comprehensive inpatient rehabilitation with physical, occupational and speech therapy 3 hours a day for 5 to 6 days per week-05/10 rehabilitation physician supervision-05/10 rehabilitation nursing care-Case management for safe discharge planning-Rehab MD to monitor comorbidities and functional progress.-Decubitus prevention-protective hydrating lotion-turn every 2 kqxst-wntqaim-Spkvd program-MiraLAX and Senokot-Nutrition, monitor the patient's p.o. intake, check albumin 3.5 and prealbumin,dietary consult, protein supplements.-Strict fall and safety precaution-DVT prophylaxis-SCDs/antiembolism stockings-GI zkgnaynbqfa-Yxibdsys-Jddxdrzw control-continue insulin-blood sugars good-as per cswctrzp-HXA-ojfxgdis-nephrology following-Respiratory insufficiency-wean O2-postop pulmonary protocol, encourage I-S, deep cough and breathing exercises, slowly improving-CAD s/p CABG, MVR, and ILAA-on DAPT post-op care per CTS-Acute/chr AF s/p PPM/ablation. Rate controlled, paced rhythm-had ILAA during bypass, no need for AC-as per cardiology-Volume fjdkzuzz-bzfybkee-do diuretics, strict I's and O's Daily-HTN. BP stable-on lpbrlsvxjv-SWP-Ur statins.-Crohn's disease. Per IM.-Early mobilization-OOB to chair-Work on bed mobility, transfer training, ADLs, pre-gait and gait exercises as tolerable. -Increase endurance and strength-Pain ajvghskoqg-Qujcqjqoixo-upszyxnksi, CVS, medicine, nephrology-Labs reviewed-WBC normal, hemoglobin improved 9.8 improved, platelets normal, potassium 3.5, creatinine 1.0, magnesium 1.77, BNP 232, 180 -replete potassium and magnesium as /28: SOB-chest e-uon-ypzatmyg aeration bilaterally. Residual interstitial andperihilar opacities. Subsegmental atelectasis. Residual small volume pleural effusions.-Continue CPAP at night-Encourage I-S and ambulation-BLE edema-ANA PAULA hose and elevation, exercise, diuretics-Diuresis as per viafjomlav-Vierev-mgzvohtx ferrous sulfate, B12, vitamin C monitor H H-Monitor hqzzcsfzt-Iwmwus-Jzahmz-Continue current medications-Sternal incision intact and healing. Continue sternal precautions for 6 weeks-Monitor complains of being tired and sleepy-Therapeutic rest break given in between due to fair activity tolerance and patient reported Omaira RPE 4 (1-10) somewhat Hard SOB during activity. -Patient breathing better and working with therapist-Check labs. Magnesium 1.83-labs pending-Advance therapies as tolerated PM RPlease see team note.Plan and goals discussed with the patient. I agree with the teams findingELOS: [01/21]XT-gmhb-vhlew with fdqewdto-NHWQE-NP, wheelchair TT 33 min>50% with discussing with patient about SOB improved, progress with therapies, rehab plan of care, goals, needs, and medical issues, examination. MAR and EMR reviewed. All Questions answered.Rehab attestation:Face to face exam completed. Treatment plan discussed with patient. Meets continued stay criteria. Agree with interdisciplinary treatment plan. at 0[address] [facility] #:[id number] OF REPORTPRProgress [id number]:33:00G.[id number] e for patient thukYNNRIRHLLWHEUW4882-86-41A32:53:34 ACL 2022-01-16 12:22:00 [id number] 8Ls0zbtGnetr haZJQqX68WPn1v/3w31A+tXt3861-24-32D06:22:[address] [facility] ([facility])Hospitalist Progress NoteREPORT#:[id number] REPORT STATUS: SignedDATE:01/16/22 TIME: 1222 PATIENT: KIAH GILES UNIT #: [id number]#: [id number] [address] AGE: 76 SEX: F ATTEND: Jesus Landry [facility] AUTHOR: Meryl Rosa MD * ALL edits or amendments must be made on the electronic/computer document * SubjectiveChief complaint:she feel well and is doing OT. no complaint Review of SystemsConstitutional:Reports: fatigue, generalized weakness. Denies: fever, lethargy. Respiratory:Denies: productive cough (sputum), SOB, wheezing. Cardiovascular:Denies: chest pain, DOUGLASS (dyspnea on exertion), edema, orthopnea, palpitations. GI:Denies: abdominal pain, nausea, vomiting. Neuro:Denies: dizziness, headache, syncope. Objective GeneralVS/I O:Vital Signs: Date Time Temp Pulse Resp B/P B/P Pulse O2 O2 Flow FiO2 Mean Ox Delivery Rate 01/16 1122 [...] scale Measurement Method PATIENT WEIGHT: Weight (lb): 256Weight (oz): 11.65Weight (kg): 116.450 Medications:Active Meds + DC'd Last 24 HrsAmiodarone HCl (CORDARONE) 200 MG DAILY PO Acetazolamide (DIAMOX) 250 MG Q12HR PO Acetylcysteine (MUCOMYST FOR RT) 200 MG RTQ6H PRN PRN NEB Sodium Chloride (SODIUM CHLORIDE) 4 ML RTBID PRN PRN NEB Magnesium Chloride (MAG 64MG) 64 MG BID PO Furosemide (LASIX) 40 MG BID 9A 5P PO Lisinopril (ZESTRIL) 2.5 MG DAILY PO Ascorbic Acid (ASCORBIC ACID) 500 MG BID PO Bisacodyl (DULCOLAX) 10 MG DAILY PRN PRN RECTAL Potassium Chloride (POTASSIUM CHLORIDE 20MEQ TAB.ER) 40 MEQ DAILY PRN PRN PO Aspirin (ASPIRIN) 81 MG DAILY PO Clopidogrel Bisulfate (Plavix) 75 MG DAILY PO Cyanocobalamin (Vitamin B-12 500 mcg tab) 500 MCG DAILY PO Ferrous Sulfate (FERROUS SULFATE) 325 MG DAILY PO Insulin Glargine (Lantus/Semglee) 30 [...] Dextrose/Water (DEXTROSE 10% IN WATER) 250 ML ASDIR PRN IV (CKD) Atorvastatin Calcium (LIPITOR) 40 MG 2100 PO Docusate Sodium (COLACE) 100 MG BID PO Insulin Glargine (Lantus/Semglee) 20 UNIT BEDTIME SUBQ Melatonin (Melatonin) 3 MG BEDTIME PO Metoprolol Tartrate (LOPRESSOR) 25 MG Q12HR PO Ondansetron HCl (ZOFRAN ODT) 4 MG TID PRN PRN PO Sennosides (Senna Lax 8.6 MG TABLET) 17.2 MG BEDTIME PO Physical ExamGeneral appearance: alert, awake, orientedHead/Eyes: atraumatic, normal conjunctiva/sclera, normal eyelids/periorb.Neck: full range of motion, non-tenderCardiovascular: normal heart sounds, regular rate rhythmRespiratory: hypoxia, on oxygenAbdomen: non-tender, normal bowel sounds, soft, no distentionExtremities: edema, moves allNeuro/[employer]AU: alert, 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, CNII-XII intact, normal speech, no motor deficits, no sensory deficitsSkin: dry, intact ResultsFindings/Data:Laboratory Tests 01/16 01/16 01/16 01/16 01/15 1139 0604 0445 0445 1922Chemistry Sodium (134 - 147 mEq/L) 141 Potassium [...] 9.5 Ionized Calcium Gigi (1.09 - 1.30 1.16MMOL/L) B-Natriuretic Peptide (0 - 100 PG/ML) 258.0 H 01/15 1533 Chemistry POC Glucose (70 - 110 MG/DL) 159 H Diagnosis, Assessment PlanConsultants: cardiology, cardiovascular surgery, hospitalist, nephrology Free Text DxA P NotesFree text DxA P notes:general weakness CAD - post CABGCHFHTNDMHLDafib OSAmorbid obesity CAD -- cardiology consult CV surgeon consult CABG --post procedure ASA/lipitor Echocardiogram showed EF 55 to 59% edema --lasix /zaroxolyn -- monitor renal function weakness --PT/OT as rehab afib -- rate control -- xarelto/amiodarone /metoprolol HTN-- metoprolol/norvasc DM-- on lantus -- sliding scale HLD-- on lipitor RONA--cpap as nig DVTP -- xarelto 01/09-- she feel tire after PT -- complaint of sob at night --bipap at night -- continue lasix -- replace K 01/10 Continue bowel regimen, adjust as needed if no results. Replace K.01/11 +BM. Replace K+, discussed with RN to [...] 01/16- she is doing well with PT/OT at 1352 RPT #:[id number] OF REPORTPRProgress [id number]:22:00G.[id number] e for patient lnblKJHJPIPAVGZSKJ2292-20-04G39:53:13 ACL 2022-01-16 10:56:00 [id number]+T vaUzonPIDtWT gjrFrn7pf59cDh2O9cAKj8Z34231-53-98B30:56:00 [facility] CenterRe[facility] Progress NoteREPORT#:[id number] REPORT STATUS: SignedDATE:01/16/22 TIME: 1056 PATIENT: KIAH GILES UNIT #: [id number]#: [id number] [address] AGE: 76 SEX: F ATTEND: Jesus Landry [facility] AUTHOR: Jesus Landry MD * ALL edits or amendments must be made on the electronic/computer document * SubjectiveChief complaint:Rehab follow-upSitting up in chair in gymPatient feels better, less short of breathUsing CPAP at nightPatient on 2 L, sats 96 %NAD, eating 50-80%BLE edema improved+ BMDenies GOLD/N/V/D/CP14 systems reviewed and neg. except that above. Objective GeneralVS:Vital Signs: Date Time Temp Pulse Resp B/P B/P Pulse O2 O2 Flow FiO2 Mean Ox Delivery Rate 01/16 0912 [...] 18 130/63 98 PATIENT WEIGHT: Weight (lb): 177Weight (oz): 0.5Weight (kg): 80.300 Medications:Active Meds + DC'd Last 24 HrsAmiodarone HCl (CORDARONE) 200 MG DAILY PO Acetazolamide (DIAMOX) 250 MG Q12HR PO Acetylcysteine (MUCOMYST FOR RT) 200 MG RTQ6H PRN PRN NEB Sodium Chloride (SODIUM CHLORIDE) 4 ML RTBID PRN PRN NEB Magnesium Chloride (MAG 64MG) 64 MG BID PO Furosemide (LASIX) 40 MG BID 9A 5P PO Lisinopril (ZESTRIL) 2.5 MG DAILY PO Ascorbic Acid (ASCORBIC ACID) 500 MG BID PO Bisacodyl (DULCOLAX) 10 MG DAILY PRN PRN RECTAL Potassium Chloride (POTASSIUM CHLORIDE 20MEQ TAB.ER) 40 MEQ DAILY PRN PRN PO Aspirin (ASPIRIN) 81 MG DAILY PO Clopidogrel Bisulfate (Plavix) 75 MG DAILY PO Cyanocobalamin (Vitamin B-12 500 mcg tab) 500 MCG DAILY PO Ferrous Sulfate (FERROUS SULFATE) 325 MG DAILY PO Insulin Glargine (Lantus/Semglee) 30 [...] Dextrose/Water (DEXTROSE 10% IN WATER) 250 ML ASDIR PRN IV (CKD) Atorvastatin Calcium (LIPITOR) 40 MG 2100 PO Docusate Sodium (COLACE) 100 MG BID PO Insulin Glargine (Lantus/Semglee) 20 UNIT BEDTIME SUBQ Melatonin (Melatonin) 3 MG BEDTIME PO Metoprolol Tartrate (LOPRESSOR) 25 MG Q12HR PO Ondansetron HCl (ZOFRAN ODT) 4 MG TID PRN PRN PO Sennosides (Senna Lax 8.6 MG TABLET) 17.2 MG BEDTIME PO Physical ExamGeneral appearance: alert, awake, no acute distressPsych: alert, normal affect, oriented x 3HEENT: anicteric, mucosal membranes moist, pupils reactive to light, sclera clearNeck: non-tender, supple, no JVDCardiovascular: regular rate rhythm, S1/S2, no murmurRespiratory: diminished breath sounds, on oxygen, clear bilaterallyAbdomen: obese, bowel sounds present, non-distended, soft, non-tenderSkin: dry, normal temperature, no rash, INCISIONS: CDI, sutures x 2.Musculoskeletal - general: Musculoskeletal - general: swelling (BLE-lymphedema), normal tone, calves NT,no cordsNeuro/[employer]: alert, 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, CNII-XII intact, no sensory deficits, MMT BUE 4/5, hips 3-/5 distal 4/5. ResultsFindings/Data:Laboratory Tests: 01/16 01/16 01/16 01/15 0604 0445 8005 1922 Chemistry Sodium (134 - 147 mEq/L) [...] 110 MG/DL) 159 H 154 H Radiology data:Recent Impressions:RADIOLOGY - XR CHEST 1 V 01/14 09 Report Impression - Status: SIGNED Entered: 01/14/2022 1041 IMPRESSION: Minimal vascular congestion with subsegmental atelectasis in the right midlung zone and opacity at the left lung base. Impression By: Aurora Reddy M.D. Diagnosis, Assessment PlanFree Text A P:Assessment:Critical illness myopathyConstrictive pericarditisSevere mitral dzfsaapmwazocBZK65/7: Status post CABG x1 (ROBERTS to LAD), ILAp, dahbsjdtwdjdkd48/7: S/p MVR10: Echo-EF 55-59%, mild to moderately dilated right ventricle, LA and RA dilatation, normally functioning MV bioprosthesisChronic AF, s/p PPM/ablation-rate controlled-pacedVolume overload-BLE edemaHistory of lymphedemaGeneralized weaknessDeconditioningAcute blood loss anemiaHypertensionMorbid obesityHLD Crohn's diseaseSmokerHypoxic respiratory failureHypokalemia/hypomagnesemia secondary to diureticsAKI resolvedSignificant impaired ADLs, mobility, gait, balance and endurance Plan:-Comprehensive inpatient rehabilitation with physical, occupational and speech therapy 3 hours a day for 5 to 6 days per week-05/10 rehabilitation physician supervision-05/10 rehabilitation nursing care-Case management for safe discharge planning-Rehab MD to monitor comorbidities and functional progress.-Decubitus prevention-protective hydrating lotion-turn every 2 lsbun-riyclrd-Wzkzh program-MiraLAX and Senokot-Nutrition, monitor the patient's p.o. intake, check albumin 3.5 and prealbumin,dietary consult, protein supplements.-Strict fall and safety precaution-DVT prophylaxis-SCDs/antiembolism stockings-GI teabjsdwaqz-Fobjctfq-Oumlujpd control-continue insulin-blood sugars good-as per mprackrx-WBT-exxtwwic-nephrology following-Respiratory insufficiency-wean O2-postop pulmonary protocol, encourage I-S, deep cough and breathing exercises, slowly improving-CAD s/p CABG, MVR, and ILAA-on DAPT post-op care per CTS-Acute/chr AF s/p PPM/ablation. Rate controlled, paced rhythm-had ILAA during bypass, no need for AC-as per cardiology-Volume czougyrz-bjigfgtg-wn diuretics, strict I's and O's Daily-HTN. BP stable-on tmrkdbkmau-ZXF-Gx statins.-Crohn's disease. Per IM.-Early mobilization-OOB to chair-Work on bed mobility, transfer training, ADLs, pre-gait and gait exercises as tolerable. -Increase endurance and strength-Pain gvkdlgophx-Lryxmlfjxat-igrohmwuwf, CVS, medicine, nephrology-Labs reviewed-WBC normal, hemoglobin improved 9.8 improved, platelets normal, potassium 3.5, creatinine 1.0, magnesium 1.77, BNP 232, 180 -replete potassium and magnesium as ivvkgy45/28: SOB-chest h-pjo-ijlwrcxk aeration bilaterally. Residual interstitial andperihilar opacities. Subsegmental atelectasis. Residual small volume pleural effusions.-Continue CPAP at night-Encourage I-S and ambulation-BLE edema-ANA PAULA hose and elevation, exercise, diuretics-Diuresis as per xztxbewgsx-Qiszzc-vpttcvkd ferrous sulfate, B12, vitamin C monitor H H-Monitor jrkcsjarv-Xjjfrh-Xkhwhc-Continue current medications-Sternal incision intact and healing. Continue sternal precautions for 6 weeks-Monitor complains of being tired and sleepy-Therapeutic rest break given in between due to fair activity tolerance and patient reported Omaira RPE 4 (1-10) somewhat Hard SOB during activity. -Patient breathing better and working with therapist-Check labs. Magnesium 1.83-labs pending-Advance therapies as tolerated Progress: GAIT TRAINING 80,72,50' CONT. TO PRACTICE PURSED LIP BREATHING AND PACING TO ASSIST WITH ENREGY CONSERVATION. IN PM PT WAS SEEN FOR 30MIN. INTRODUCE BARIATIRICROLLATOR TO PATIENT,EDUCATE AND DEMONSTRATE USE OF BRAKES WELL SITTING AND STANDING.EDUCATE PT ON SAFETY W/ROLLATER,SAFETY W/FALL PREVENTION,FALL RECCOVERY. PM RPlease see team note.Plan and goals discussed with the patient. I agree with the teams findingELOS: [01/21]AY-wtfk-uhavf with icwfazfm-XAEXN-XH, wheelchair TT 33 min>50% with discussing with patient about SOB improved, progress with therapies, rehab plan of care, goals, needs, and medical issues, examination. MAR and EMR reviewed. All Questions answered.Orders: Procedure Date/time Status OXYGEN PER HOUR 01/16 05 Complete NEB TREATMENT SUBSQ 01/16 310 Active NEB TREATMENT SUBSQ 01/15 2130 Active Consultants: cardiology, cardiovascular surgery, hospitalist, nephrologyPlan discussed with: patient, nurse, interdisc care teamRehab attestation:Face to face exam completed. Treatment plan discussed with patient. Meets continued stay criteria. Agree with interdisciplinary treatment plan. at 1102 RPT #:[id number] OF REPORTPRProgress zyxs2099-86-88B21:56:00G.[id number] e for patient tgkzPWVMOPJIXOLRJP9679-29-36G78:02:54 ACL 2022-01-16 10:20:00 [id number]+AbixoKqnGIa1hIa yKfJdbMfZnrO vPATy3Q0apVXReZ352/pxuKC5177-34-90H22:20:[address] [facility] ([facility])Cardiology Progress NoteREPORT#:[id number] REPORT STATUS: SignedDATE:01/16/22 TIME: 1020 PATIENT: KIAH GILES UNIT #: [id number]#: [id number] [address] AGE: 76 SEX: F ATTEND: Jesus Landry [facility] AUTHOR: Aruna Ramos MD * ALL edits or amendments must be made on the electronic/computer document * Subjective Free Text Subj NotesFree Text Subj Notes:doing ok, said had a sob the night before. Objective GeneralVS/I O:24 hour I O ending at 0700: 01/16 [...] Flow FiO2 Mean Ox Delivery Rate 01/16 0912 [...] 18 130/63 98 PATIENT WEIGHT: Weight (lb): 177Weight (oz): 0.5Weight (kg): 80.300 Medications:Active Meds + DC'd Last 24 HrsAmiodarone HCl (CORDARONE) 200 MG DAILY PO Acetazolamide (DIAMOX) 250 MG Q12HR PO Acetylcysteine (MUCOMYST FOR RT) 200 MG RTQ6H PRN PRN NEB Sodium Chloride (SODIUM CHLORIDE) 4 ML RTBID PRN PRN NEB Magnesium Chloride (MAG 64MG) 64 MG BID PO Furosemide (LASIX) 40 MG BID 9A 5P PO Lisinopril (ZESTRIL) 2.5 MG DAILY PO Ascorbic Acid (ASCORBIC ACID) 500 MG BID PO Bisacodyl (DULCOLAX) 10 MG DAILY PRN PRN RECTAL Potassium Chloride (POTASSIUM CHLORIDE 20MEQ TAB.ER) 40 MEQ DAILY PRN PRN PO Aspirin (ASPIRIN) 81 MG DAILY PO Clopidogrel Bisulfate (Plavix) 75 MG DAILY PO Cyanocobalamin (Vitamin B-12 500 mcg tab) 500 MCG DAILY PO Ferrous Sulfate (FERROUS SULFATE) 325 MG DAILY PO Insulin Glargine (Lantus/Semglee) 30 [...] Dextrose/Water (DEXTROSE 10% IN WATER) 250 ML ASDIR PRN IV (CKD) Atorvastatin Calcium (LIPITOR) 40 MG 2100 PO Docusate Sodium (COLACE) 100 MG BID PO Insulin Glargine (Lantus/Semglee) 20 UNIT BEDTIME SUBQ Melatonin (Melatonin) 3 MG BEDTIME PO Metoprolol Tartrate (LOPRESSOR) 25 MG Q12HR PO Ondansetron HCl (ZOFRAN ODT) 4 MG TID PRN PRN PO Sennosides (Senna Lax 8.6 MG TABLET) 17.2 MG BEDTIME PO Physical ExamGeneral appearance: alert, awake, orientedHead/Eyes: PERRLANeck: no JVDCardiovascular: CV assessment: regular rate and rhythmRespiratory: decreased breath sounds, no distressAbdomen: soft, non-tender, normal bowel sounds, no distentionGenitourinary: no flank pain, no urinary catheterUpper extremity: UE assessment: no edemaLower extremity: LE assessment: edema (1 + pitting edema)Musculoskeletal: normal inspectionNeuro/CAPTAIN FIRE PREVENTION BUREAU: alert, 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, normal speechSkin: poor skin turgorPsychiatry: normal affect, normal mood ResultsFindings/Data:Laboratory Tests 01/16 01/16 01/15 01/15 01/15 0604 0445 1922 1533 1103Chemistry Sodium (134 - 147 mEq/L) 141 Potassium [...] (1.09 - 1.30 MMOL/L) 1.16 Diagnosis, Assessment PlanProblem List/A P: 1. CAD (coronary artery disease) 2. Severe mitral regurgitation 3. Chronic a-fib 4. S/P CABG x 1 5. S/P MVR (mitral valve replacement) Free Text DxA P NotesFree Text DxA P Notes:Ms Giles is a 76 y/o female with PMHx of CAD, HLD, T2DM, RONA (CPAP at home), smoker, Crohn's disease, AF s/p ablation s/p PPM, and chronic lymphedema. She isrecovering from CABG and MVR. She is transferred to [facility] for inpatient rehabilitation. Cardiolgy is consulted for continuity of cardiac-related care. 1. CAD s/p CABG, MVR, and ILAA. On Plavix, aspirin, beta-delma, statin 2. Chronic AF s/p PPM/ablation. had ILAA during bypass no need for ACkeep K >4 and Mag above 2decrease amiodarone to 200 mg daily 3. Chronic Diastolic CHF on PO Lasix 40 mg BID and diamox, dosing per renal. 4. Hypertension - normotensiveBP range: 114-147/66-82 (82.1-103.3) mmHgcontinue metoprolol tartrate 25 mg BIDlow dose lisinopril added by nephrology 5. HyperlipidemiaContinue statins. 6. MARCELLO - resolvedper Nephrology at 1043 RPT #:[id number] OF REPORTPRProgress tfdj6790-10-91U13:20:00G.[id number] e for patient gyocRKHDWDXNHRNFRV5740-09-99N86:43:59 [facility] 2022-01-15 12:48:00 [id number]/an2etil XxhNOcHT0uyE GpaJGHx2zQCvzgbaP+0lplzB7706-85-59V02:48:[address] [facility] ([facility])Nephrology Progress NoteREPORT#:[id number] REPORT STATUS: SignedDATE:01/15/22 TIME: 1248 PATIENT: KIAH GILES UNIT #: [id number]#: [id number] [address] AGE: 76 SEX: F ATTEND: Jesus Landry [facility] AUTHOR: Suki Fuchs MD * ALL edits or amendments must be made on the electronic/computer document * SubjectiveChief complaint:CAD, S/P CABGHPI:This is a 76-year-old female who has past medical history of hypertension, diabetes, coronary artery disease, atrial fibrillation who presented with worsening shortness of breath and on further work-up was 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 She was withnormal kidney function prior to surgery and after her surgery she began to develop oliguria. Her procedure was done without any complications but after her surgery she did require pressor support for hypotension and she was intubated for respiratory acidosis and hypoxia and she was treated with vancomycin for infection treatment. She recovered kidney function and has been on diuretics for hypervolemia which has also improved significantly. 1She was seen in rehab today and was doing well, nursing staff reporting eating well. 3Feeling fine, SOB better. Objective GeneralVS/I O:Vital Signs: Date Time Temp Pulse Resp B/P B/P Pulse O2 O2 Flow FiO2 Mean Ox Delivery Rate 01/16 0912 [...] scale Measurement Method PATIENT WEIGHT: Weight (lb): 177Weight (oz): 0.5Weight (kg): 80.300 Physical ExamGeneral appearance: alert, awake, orientedHead/eyes: atraumatic, EOMIENT: moist mucous membranes, normal noseNeck: no JVD, no lymphadenopathyCardiovascular: normal heart sounds, regular rate and rhythmRespiratory: aerating well, clear to auscultationAbdomen: non-tender, softGenitourinary: no bladder distention, no flank painExtremities: pitting edema, no gangrene, no swelling Diagnosis, Assessment PlanFree Text A P:This is a 76-year-old female known to have hypertension, diabetes, atrial fibrillation, s/p permanent pacemaker and history of ablation presenting with shortness of breath and 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 Nephrology is following for: 1. Acute kidney injury: Most likely it is prerenal (cardiorenal), she has been hypotensive postoperatively with requirement for pressor support and inotropic support. Resolved with stable hemodynamics 2. Hypervolemia:Improved, on low dose lasix. 3. Hypokalemia: Plan to replace nd monitor closely. 4. Metabolic alkalosis secondary to diuretics. Plan to monitoe and give diamox if worsens. 01/09 1. Acute kidney injury: Most likely it is prerenal (cardiorenal), she has been hypotensive postoperatively with requirement for pressor support and inotropic support. Resolved with stable hemodynamics 2. Hypervolemia:Improved, on low dose lasix. 3. Hypokalemia: Plan to replace and monitor closely. 4. Metabolic alkalosis secondary to diuretics. Plan to monitor and continue diamox. 01/10 1. Acute kidney injury: Most likely it is prerenal (cardiorenal), she has been hypotensive postoperatively with requirement for pressor support and inotropic support. Resolved with stable hemodynamics 2. Hypervolemia:Improved, on low dose lasix.Dose increased to 40 Q12H today as she was looking volume overloaded. 3. Hypokalemia: Plan to replace and monitor closely. 4. Metabolic alkalosis secondary to diuretics. Plan to monitor and continue diamox. 01/12 1. Acute kidney injury: Most likely it is prerenal (cardiorenal), she has been hypotensive postoperatively with requirement for pressor support and inotropic support. Resolved with stable hemodynamics. 2. Hypervolemia:Improved, on low dose lasix.Dose increased to 40 Q12H as she was looking volume overloaded. 3. Hypokalemia: Plan to replace and monitor closely. 4. Metabolic alkalosis secondary to diuretics. Plan to monitor and continue diamox. 01/13 1. Acute kidney injury: Resolved with stable hemodynamics. 2. Hypervolemia:Improved, on low dose lasix.Dose increased to 40 Q12H as she was looking volume overloaded. 3. Hypokalemia: Plan to replace and monitor closely. 4. Metabolic alkalosis secondary to diuretics. Plan to monitor and continue diamox. . Acute kidney injury: Resolved with stable hemodynamics. 2. Hypervolemia:Improved, on low dose lasix.Dose increased to 40 Q12H as she was looking volume overloaded.No staying well. 3. Hypokalemia: Plan to replace and monitor closely.Lisinopril helping keep herpotassium better. 4. Metabolic alkalosis secondary to diuretics. Plan to monitor and continue diamox. Consultants: cardiology, cardiovascular surgery, hospitalist, nephrology at 1125 RPT #:[id number] OF REPORTPRProgress yijs4723-05-94N53:48:00G.[id number] e for patient ldhyPKVAUPUZHTKNHS1350-33-24V59:26:00 [facility] 2022-01-15 11:36:00 [id number]/Brian/XHf8eaEiyHpaf/c7zd ekx4E0fsW6ZX 3ZQa8hdxZT57JzNvHHItevDx6675-29-98O40:36:00 [facility] Progress NoteREPORT#:[id number] REPORT STATUS: SignedDATE:01/15/22 TIME: 1136 PATIENT: KIAH GILES UNIT #: [id number]#: [id number] [place]: [birth year] AGE: 76 SEX: F ATTEND: Jesus Landry [facility] AUTHOR: Meryl Rosa MD * ALL edits or amendments must be made on the electronic/computer document * SubjectiveChief complaint:she walk in the hallway with PT. no cp and sob Review of SystemsConstitutional:Reports: generalized weakness. Denies: fatigue, fever, lethargy. Respiratory:Reports: DOUGLASS (dyspnea on exertion), SOB. Denies: pneumonia, productive cough (sputum), wheezing. Cardiovascular:Reports: DOUGLASS (dyspnea on exertion). Denies: chest pain, edema, orthopnea, palpitations. GI:Denies: abdominal pain, nausea, vomiting. Neuro:Denies: dizziness. Objective GeneralVS/I O:Vital Signs: Date Time Temp Pulse Resp B/P B/P Pulse O2 O2 Flow FiO2 Mean Ox Delivery Rate 01/15 0645 [...] scale Measurement Method PATIENT WEIGHT: Weight (lb): 261Weight (oz): 3.96Weight (kg): 118.500 Medications:Active Meds + DC'd Last 24 HrsAmiodarone HCl (CORDARONE) 200 MG DAILY PO Acetazolamide (DIAMOX) 250 MG Q12HR PO Acetylcysteine (MUCOMYST FOR RT) 200 MG RTQ6H PRN PRN NEB Sodium Chloride (SODIUM CHLORIDE) 4 ML RTBID PRN PRN NEB Magnesium Chloride (MAG 64MG) 64 MG BID PO Furosemide (LASIX) 40 MG BID 9A 5P PO Lisinopril (ZESTRIL) 2.5 MG DAILY PO Ascorbic Acid (ASCORBIC ACID) 500 MG BID PO Bisacodyl (DULCOLAX) 10 MG DAILY PRN PRN RECTAL Potassium Chloride (POTASSIUM CHLORIDE 20MEQ TAB.ER) 40 MEQ DAILY PRN PRN PO Aspirin (ASPIRIN) 81 MG DAILY PO Clopidogrel Bisulfate (Plavix) 75 MG DAILY PO Cyanocobalamin (Vitamin B-12 500 mcg tab) 500 MCG DAILY PO Ferrous Sulfate (FERROUS SULFATE) 325 MG DAILY PO Insulin Glargine (Lantus/Semglee) 30 UNIT DAILY SUBQ Polyethylene Glycol (MIRALAX) 17 GM DAILY PO Sodium Chloride (SODIUM CHLORIDE) 10 ML BID IV Insulin Human Lispro (HUMALOG) 0 AC HS SUBQ Pantoprazole (PROTONIX) 40 MG DAILY@0600 PO Acetylcysteine (MUCOMYST FOR RT) 200 MG RTQ6H NEB (DC) Albuterol/Ipratropium (DUONEB) 3 ML RTQ6H NEB Glucagon (GLUCAGON) 1 MG ASDIR PRN IM Acetaminophen (TYLENOL) 650 MG Q4H PRN PRN PO Bisacodyl (DULCOLAX) 5 MG DAILY PRN PRN PO Dextrose/Water (DEXTROSE 10% IN WATER) 250 ML ASDIR PRN IV (CKD) Sodium Chloride (SODIUM CHLORIDE) 4 ML RTBID NEB (DC) Amiodarone HCl (CORDARONE) 200 MG Q12HR PO (DC) Atorvastatin Calcium (LIPITOR) 40 MG 2100 PO Docusate Sodium (COLACE) 100 MG BID PO Insulin Glargine (Lantus/Semglee) 20 UNIT BEDTIME SUBQ Melatonin (Melatonin) 3 MG BEDTIME PO Metoprolol Tartrate (LOPRESSOR) 25 MG Q12HR PO Ondansetron HCl (ZOFRAN ODT) 4 MG TID PRN PRN PO Sennosides (Senna Lax 8.6 MG TABLET) 17.2 MG BEDTIME PO Physical ExamGeneral appearance: alert, awake, oriented, no acute distressHead/Eyes: atraumatic, normal conjunctiva/sclera, normal eyelids/periorb.Neck: full range of motion, non-tenderCardiovascular: normal heart sounds, regular rate rhythmRespiratory: dyspneic, on oxygenAbdomen: non-tender, normal bowel sounds, soft, no distentionExtremities: edema, moves allNeuro/CAPTAIN FIRE PREVENTION BUREAU: alert, 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, CNII-XII intact, normal speech, no motor deficits, no sensory deficitsSkin: dry, intact ResultsFindings/Data:Laboratory Tests 01/15 01/15 01/15 01/14 01/14 1103 0542 0948 1925 1523 Chemistry POC Glucose (70 - 110 MG/DL) 154 H 113 H 57 L 186 H 183 H Diagnosis, Assessment PlanConsultants: cardiology, cardiovascular surgery, hospitalist, nephrology Free Text DxA P NotesFree text DxA P notes:general weakness CAD - post CABGCHFHTNDMHLDafib OSAmorbid obesity CAD -- cardiology consult CV surgeon [...] 01/10 Continue bowel regimen, adjust as needed if no results. Replace K.01/11 +BM. Replace K+, discussed with RN to [...] therapist . less sob -- continue PT/OT at 1712 RPT #:[id number] OF REPORTPRProgress icrg6153-90-51J32:36:00G.[id number] e for patient uypfBHFGLTLSZVVCCI7133-45-97A35:13:01 [facility] 2022-01-15 11:19:00 [id number]n 94OZ5ZNBLfOc T/AnHeyQd96pgzWKCB6TFiVR4070-73-24C60:19:[address] [facility] ([facility])Rehab Team ConferenceREPORT#:[id number] REPORT STATUS: SignedDATE:01/15/22 TIME: 1119 PATIENT: KIAH GILES UNIT #: [id number]#: [id number] [address] AGE: 76 SEX: F ATTEND: Jesus Landry AUTHOR: Jesus Landry MD * ALL edits or amendments must be made on the electronic/computer document * Rehabilitation Team Conference Weekly Team ConferenceTeam conf information:Date of conference: 01/15/22Conference type: InterimConference scribe: REYNALDO Mcdonnell INTERDISCIPLINARY TEAM MEETING PARTICIPANTS: TITLE NAME MD LAURA Aguilar, RN PT Moshe Benton, PT OT Gabriele Delgado OT CM/LANDRY Chu, REYNALDO [facility] REYNALDO Mcdonnell Staff (8) NO ATTENDEE Staff (9) NO ATTENDEE OTHER NAME CREDENTIALS 1 STEFANO WILDERITIAN 2 FUNCTIONAL CHANGE: TYPE ADMISSION TOTAL INTERIM TOTAL CHANGE Self care 19 28 9 Transfer 23 25 2 Mobility 11 22 11 Wheelchair distance: 150 ftMobility description: BOWEL AND BLADDER STATUS: Bowel continence admission rating: Bladder continence admission rating: Always continentBowel and bladder team conference update: CONTINENT X 2. LBM 10-30 INTERDISCIPLINARY TEAM UPDATES: DALILA team conference update: A/O X 4, ON 3 LITERS OXYGEN NC, BIPAP AT NIGHT WEARING ON AND OFF, CONTINENT X 2, PT VOIDING FREQUENTLY AT NIGHT CAUSING HER DIFFICULTY TO SLEEP, NO REPORT OF PAIN OR DISCOMFORT WITH VOIDING, PT IS ON PO LASIX BID, MIN ASSIST WITH TRANFERES STERNAL PRECAUTIONS, ACHS(267,287,140,71) PITTING +2 EDEMA IN BILATERAL LEGS, GENERALIZED SWELLING. MINOR PAIN TO CHEST INCISION WITH COUGHING, MIDLINE INCISION ASHISH, ABD. PUNTURE SITES WITH SUTURES, EXCORIATION TO GROIN AREA. HGB:8.7, HCT:28.4, K:3.3. VITAL SIGNS WNL. PT team conference update: PROGRESS-GOOD PRIME MOBILITY WALKING 60' AT A TIME SOFAR WORKING PURSED LIP BREATHING AND PACING TO ASSIST W/ENREGY CONSERVATION. DME-BARIATRIC RW HHOT team conference update: PT PROGRESSING WELL IN THERAPY. PT LIMITED BY STERNALPRECAUTIONS, LIMITED ROM IN BUES, DECREASED ENDURANCE, STANDING BALANCE, AND SOBUPN EXERTION. WILL RECOMMEND HHOT. DME: LEANDRO BSCST team conference update: CM or SW team conference update: PT LIVES AT HOME WITH DAUGHTER. PLAN FOR HER TODISCHARGE TO HOME IN [place] WITH HOME HEALTHOther discipline update 1: PO INTAKE: 50-80% OF A DIABETIC DIET WITH GUANDRWE TIDOther discipline update 2: Other discipline update 3: REHAB DC GOALS: Patient's identified discharge goal: PT: Pt ABLE TO WALK Eating discharge goal: Independent (6) Shower/bathe self discharge goal: Independent (6) Upper body dressing discharge goal: Independent (6) Lower body dressing discharge goal: Independent (6) Chair/bed to chair transfer discharge goal: Independent (6) Transfer on/off toilet or commode discharge goal: Independent (6) Walking 50 feet with two turns discharge goal: Independent (6) Walking 150 feet discharge goal: Independent (6) Four steps discharge goal: Partial/moderate asst (3) Twelve steps discharge goal: Not applicable [place] 150 feet discharge goal: Supervise/touch asst (4) Goal 1 - Bowel function: PT WILL MAINTAIN NORMAL BOWEL FUNCTION IN REHAB STAYGoal 2 - Bladder function: PT WILL MAINTAIN NORMAL BLADDER FUNCITON IN REHAB STAYNursing goal 3: PT WILL MAINTAIN SKIN INTEGRITYNursing goal 4: PT WILL REMAIN FREE OF FALLS AND INJURIES THROUGHOUT REHAB STAYNursing goal 5: DISCHARGE PLANNING: Barriers to discharge: DEFICITS W ADLS , IMPAIRED ENDURANCE, STERNAL PREACVUTIONSStrategies for D/C barriers: ADL TRAINING, ENDURANCE TRAINING, COMPENSATORY STRATEGIESEstimated length of stay in days: 14Anticipated discharge date: 01/21/22Discharge date adjustment comment: Identified financial and/or community resource needs: Family/Caregiver training days: PT AND FAMILY WILL BE EDUCATED ON THE USE OF THEGAIT BELT TO LOWER THE PT TO THE FLOOR IN THE EVENT OF LOSS OF BALANCE TO PREVENT FALL OR INJURY. FAMILY TRAINING SCHEDULED ON 01/19/22Independence day (DATE): 01/20/22Expected discharge destination: Home Anticipated services upon discharge: Occupational therapy, Physical therapy, Home health, NursingAnticipated discharge equipment: RW, WC-20" Impairment group: neurologic conditions NOTE Document ONLY ONE Impairment Group Neurologic conditions: neuromuscular disordersEtiologic diagnosis:Critical illness myopathyReview of comorbidities:CAD, MITRAL VALVE REPLACEMENT 12/23, CORONARY ARTERY BYPASS, Pericardiectomy., OBESITY, RONA, HTN, HLD, DIABETES, CROHN'S DISEASE, CHRONIC A FIB, PACEMAKER, ANEMIA, HYPOXIC RESPIRATORY FAILURE, on BiPap MD Review/RecommendationsAttestation:This interdisciplinary team conference was led by me and I concur with all decisions made during the team conference and revisions to the individualized overall plan of care. IRF cont stay criteriaSEE NOTE at 1120 RPT #:[id number] OF REPORTCLClinical oyjm1796-68-74K12:19:00G.[id number] e for patient bpzyDQVNMUGBUAJUSU3377-65-82S28:20:46 [facility] 2022-01-15 06:32:00 [id number]/SODpbHqfp/CXlkLsaHL xEG2r0ccytYR cxeSh8uNifacL/vtD667ZtO41070-54-05U96:32:00 [facility] CenterRe[facility] Progress NoteREPORT#:[id number] REPORT STATUS: SignedDATE:01/15/22 TIME: 631 PATIENT: KIAH GILES UNIT #: [id number]#: [id number] [facility] [place]: [birth year] AGE: 76 SEX: F [facility] AUTHOR: Herberth Pantoja * ALL edits or amendments must be made on the electronic/computer document * Herberth Pantoja 01/15/22 0632:SubjectiveChief complaint:Rehab follow-upSitting up in chairStates feels okayUsing CPAP at nightPatient on 3-4 L, sats 100%NAD, eating 50-80%Reports BLE edema+ BMDenies GOLD/N/V/D/CP14 systems reviewed and neg. except that above. Objective GeneralVS:Vital Signs: Date Time Temp Pulse Resp B/P B/P Pulse O2 O2 Flow FiO2 Mean Ox Delivery Rate 01/15 0300 [...] Nasal 3 cannula PATIENT WEIGHT: Weight (lb): 261Weight (oz): 3.96Weight (kg): 118.500 Medications:Active Meds + DC'd Last 24 HrsAmiodarone HCl (CORDARONE) 200 MG DAILY PO Acetazolamide (DIAMOX) 250 MG Q12HR PO Acetylcysteine (MUCOMYST FOR RT) 200 MG RTQ6H PRN PRN NEB Sodium Chloride (SODIUM CHLORIDE) 4 ML RTBID PRN PRN NEB Magnesium Chloride (MAG 64MG) 64 MG BID PO Furosemide (LASIX) 40 MG BID 9A 5P PO Lisinopril (ZESTRIL) 2.5 MG DAILY PO Ascorbic Acid (ASCORBIC ACID) 500 MG BID PO Bisacodyl (DULCOLAX) 10 MG DAILY PRN PRN RECTAL Potassium Chloride (POTASSIUM CHLORIDE 20MEQ TAB.ER) 40 MEQ DAILY PRN PRN PO Acetazolamide (DIAMOX) 250 MG DAILY PO (DC) Aspirin (ASPIRIN) 81 MG DAILY PO Clopidogrel Bisulfate (Plavix) 75 MG DAILY PO Cyanocobalamin (Vitamin B-12 500 mcg tab) 500 MCG DAILY PO Ferrous Sulfate (FERROUS SULFATE) 325 MG DAILY PO Insulin Glargine (Lantus/Semglee) 30 UNIT DAILY SUBQ Polyethylene Glycol (MIRALAX) 17 GM DAILY PO Sodium Chloride (SODIUM CHLORIDE) 10 ML BID IV Insulin Human Lispro (HUMALOG) 0 AC HS SUBQ Pantoprazole (PROTONIX) 40 MG DAILY@0600 PO Acetylcysteine (MUCOMYST FOR RT) 200 MG RTQ6H NEB (DC) Albuterol/Ipratropium (DUONEB) 3 ML RTQ6H NEB Glucagon (GLUCAGON) 1 MG ASDIR PRN IM Acetaminophen (TYLENOL) 650 MG Q4H PRN PRN PO Bisacodyl (DULCOLAX) 5 MG DAILY PRN PRN PO Dextrose/Water (DEXTROSE 10% IN WATER) 250 ML ASDIR PRN IV (CKD) Sodium Chloride (SODIUM CHLORIDE) 4 ML RTBID NEB (DC) Amiodarone HCl (CORDARONE) 200 MG Q12HR PO (DC) Atorvastatin Calcium (LIPITOR) 40 MG 2100 PO Docusate Sodium (COLACE) 100 MG BID PO Insulin Glargine (Lantus/Semglee) 20 UNIT BEDTIME SUBQ Melatonin (Melatonin) 3 MG BEDTIME PO Metoprolol Tartrate (LOPRESSOR) 25 MG Q12HR PO Ondansetron HCl (ZOFRAN ODT) 4 MG TID PRN PRN PO Sennosides (Senna Lax 8.6 MG TABLET) 17.2 MG BEDTIME PO Functional ProgressFunctional progress:O: PT WAS SEEN FOR 90MIN OF THERAPY BEGINNING W/ GAIT TRAINING 65',45',50' WORKING ON PURSED LIP BREATING TO ASSIST W/ENERGY CONSERVATION,PT ON 2L OF 02 WITH ACTIVITIES IN THERAPY.LENGTHY REST STOPS IN BETWEEN WALKING,WC MOBILTY PT PROPEL INTO GYM SLOW MOVING DUE TO FATIGUE.THER-EX IN SITTING BI LE IN ALL PLANES 10 REPS,2 SETS,DYNAMIC STANDING WORKING ON TABLE TOP ACTIVITIES CRITICAL THINKINGPROBLEM SOLVING 2.50 MIN,2.25 X2 MIN. ASSIST PT TWICE TO RESTROOM SLOW MOVING EXTRA TIME TO VOID SBA WITH STAND STEP TRANSFER USING GRAB BAR FOR BALANCE.LEFT PT IN RECLINER WITH CALL LIGHT WITHIN REACH.PT ALSO PRACTICED PICKING OBJECTS OFF FLOOR WITH SPAR FINISHER INDEP. A: PT MAKING PROGRESS IS SELF LIMITING AT TIME REQUIRES EXTRA TIME INBETWEEN ACTIVITIES TO RECOVER FROM FATIGUE. MAX ENCOURAGEMENT. Physical ExamGeneral appearance: alert, awakePsych: alert, normal affect, oriented x 3HEENT: anicteric, mucosal membranes moist, pupils reactive to light, sclera clearNeck: non-tender, supple, no JVDCardiovascular: regular rate rhythm, S1/S2, no murmurRespiratory: diminished breath sounds, on oxygen, clear bilaterallyAbdomen: obese, bowel sounds present, non-distended, soft, non-tenderSkin: dry, normal temperature, no rash, INCISIONS: CDI, sutures x 2.Musculoskeletal - general: Musculoskeletal - general: swelling (BLE-lymphedema), normal tone, calves NT,no cordsNeuro/CAPTAIN FIRE PREVENTION BUREAU: alert, 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, CNII-XII intact, no sensory deficits, MMT BUE 4/5, hips 3-/5 distal 4/5. ResultsFindings/Data:Laboratory Tests 01/15 01/15 01/14 01/14 01/14 0547 0455 1925 1523 1059 Chemistry POC Glucose (70 - 110 MG/DL) 113 H 57 L 186 H 183 H 114 H 01/14 01/14 01/13 01/13 [...] 159 H 233 H 164 H Recent Impressions:RADIOLOGY - XR CHEST 1 V 01/14 906 Report Impression - Status: SIGNED Entered: 01/14/2022 1041 IMPRESSION: Minimal vascular congestion with subsegmental atelectasis in the right midlung zone and opacity at the left lung base. Impression By: Aurora Reddy M.D. Diagnosis, Assessment PlanFree Text A P:Assessment:Critical illness myopathyConstrictive pericarditisSevere mitral nhkbmuzykgjnrXAL81/7: Status post CABG x1 (ROBERTS to LAD), ILAp, hxbcgjtrliqzna92/7: S/p MVR10/: Echo-EF 55-59%, mild to moderately dilated right ventricle, LA and RA dilatation, normally functioning MV bioprosthesisChronic AF, s/p PPM/ablation-rate controlled-pacedVolume overload-BLE edemaHistory of lymphedemaGeneralized weaknessDeconditioningAcute blood loss anemiaHypertensionMorbid obesityHLD Crohn's diseaseSmokerHypoxic respiratory failureHypokalemia/hypomagnesemia secondary to diureticsAKI resolvedSignificant impaired ADLs, mobility, gait, balance and endurance Plan:-Comprehensive inpatient rehabilitation with physical, occupational and speech therapy 3 hours a day for 5 to 6 days per week-05/10 rehabilitation physician supervision-05/10 rehabilitation nursing care-Case management for safe discharge planning-Rehab MD to monitor comorbidities and functional progress.-Decubitus prevention-protective hydrating lotion-turn every 2 btzir-xrsamdo-Vyidm program-MiraLAX and Senokot-Nutrition, monitor the patient's p.o. intake, check albumin 3.5 and prealbumin,dietary consult, protein supplements.-Strict fall and safety precaution-DVT prophylaxis-SCDs/antiembolism stockings-GI vlergmtyyed-Bdlngzgu-Yrctnuuo control-continue insulin-blood sugars good-as per ivkfwpmb-YYU-netuhjfu-nephrology following-Respiratory insufficiency-wean O2-postop pulmonary protocol, encourage I-S, deep cough and breathing exercises, slowly improving-CAD s/p CABG, MVR, and ILAA-on DAPT post-op care per CTS-Acute/chr AF s/p PPM/ablation. Rate controlled, paced rhythm-had ILAA during bypass, no need for AC-as per cardiology-Volume bptukbqq-hnhkqgeh-cz diuretics, strict I's and O's Daily-HTN. BP stable-on zvgkfdeuyj-LWL-Oe statins.-Crohn's disease. Per IM.-Early mobilization-OOB to chair-Work on bed mobility, transfer training, ADLs, pre-gait and gait exercises as tolerable. -Increase endurance and strength-Pain eipfdhewwh-Obbokvxltjr-ggiuhckrtq, CVS, medicine, nephrology-Labs reviewed-WBC normal, hemoglobin improved 9.8 improved, platelets normal, potassium 3.5, creatinine 1.0, magnesium 1.77, BNP 232, 180 -replete potassium and magnesium as ooxbiw00/28: SOB-chest j-sxz-djscujkz aeration bilaterally. Residual interstitial andperihilar opacities. Subsegmental atelectasis. Residual small volume pleural effusions.-Continue CPAP at night-Encourage I-S and ambulation-BLE edema-ANA PAULA hose and elevation, exercise, diuretics-Diuresis as per ysxkimaapv-Aqfbfd-ppkubblo ferrous sulfate, B12, vitamin C monitor H H-Monitor sfnfnzdnk-Stkqnn-Egwwmr-Continue current medications-Sternal incision intact and healing. Continue sternal precautions for 6 weeks-Monitor complains of being tired and sleepy-Therapeutic rest break given in between due to fair activity tolerance and patient reported Omaira RPE 4 (1-10) somewhat Hard SOB during activity. -Patient still with SOB and desaturates with exercise-we will have Dr. Ramos evaluate patient.-Check labs. Magnesium 1.83-Advance therapies as tolerated PM RPlease see team note.Plan and goals discussed with the patient. I agree with the teams findingELOS: [01/21]SZ-zyhn-uszon with daughter-HH versus outpatient cardiac rehabilitationDME-RW, wheelchair TT 33 min>50% with discussing with patient about discharge plan, SOB, therapies,rehab plan of care, goals, needs, and medical issues, examination. MAR and EMRreviewed. All Questions answered.Rehab attestation:Face to face exam completed. Treatment plan discussed with patient. Meets continued stay criteria. Agree with interdisciplinary treatment plan. Jesus Landry 01/15/22 1037:Attestations Physician AttestationAgree w/findings plan:Patient seen and examined. Agree with the findings and plan as documented by ABRAN Todd. PM RPlease see team note.Plan and goals discussed with the patient. I agree with the teams findingELOS: [01/21]YE-ihvn-amttd with uyifyslf-FOCKG-GP, wheelchair at 1119 at 1717 RPT #:[id number] OF REPORTPRProgress kedu2030-02-47B02:32:00G.[id number] e for patient pnvyVSKWWAOPSYYMEE7769-99-14O42:20:07 HC ACL 2022-01-14 14:37:00 [id number]H0 Foy3Wb2t2BUt t0DNY9w2A7HrBvLL+OAyNPw04901-99-15N82:37:00 [facility] CenterCard[facility] Progress NoteREPORT#:[id number] REPORT STATUS: SignedDATE:01/14/22 TIME: 1437 PATIENT: KIAH GILES UNIT #: [id number]#: [id number] [address] AGE: 76 SEX: F ATTEND: Jesus Landry MDADM AUTHOR: Isabella Clemens AGACNP * ALL edits or amendments must be made on the electronic/computer document * SubjectiveChief complaint:States breathing is better Objective GeneralVS/I O:24 hour I O ending at 0700: 01/14 0700 01/13 1900 Intake Total 240 140 Output Total 759 Balance -519 140 Intake, Oral 240 140 Number 0 Incontinent Voids Number Voids 8 Output, Urine 759 Patient 115.6 kg Weight Weight Bed scale Measurement Method Vital Signs: Date Time Temp Pulse Resp B/P B/P Pulse O2 O2 Flow FiO2 Mean Ox Delivery Rate 01/14 1316 [...] Nasal 4 cannula PATIENT WEIGHT: Weight (lb): 254Weight (oz): 13.67Weight (kg): 115.600 Medications:Active Meds + DC'd Last 24 HrsAcetazolamide (DIAMOX) 250 MG Q12HR PO Acetylcysteine (MUCOMYST FOR RT) 200 MG RTQ6H PRN PRN NEB Sodium Chloride (SODIUM CHLORIDE) 4 ML RTBID PRN PRN NEB Furosemide (LASIX 40 mg/4 mL INJECTION) 40 MG ONCE ONE IV (DC) Magnesium Chloride (MAG 64MG) 64 MG BID PO Furosemide (LASIX) 40 MG BID 9A 5P PO Lisinopril (ZESTRIL) 2.5 MG DAILY PO Ascorbic Acid (ASCORBIC ACID) 500 MG BID PO Bisacodyl (DULCOLAX) 10 MG DAILY PRN PRN RECTAL Potassium Chloride (POTASSIUM CHLORIDE 20MEQ TAB.ER) 40 MEQ DAILY PRN PRN PO Acetazolamide (DIAMOX) 250 MG DAILY PO (DC) Aspirin (ASPIRIN) 81 MG DAILY PO Clopidogrel Bisulfate (Plavix) 75 MG DAILY PO Cyanocobalamin (Vitamin B-12 500 mcg tab) 500 MCG DAILY PO Ferrous Sulfate (FERROUS SULFATE) 325 MG DAILY PO Insulin Glargine (Lantus/Semglee) 30 UNIT DAILY SUBQ Polyethylene Glycol (MIRALAX) 17 GM DAILY PO Sodium Chloride (SODIUM CHLORIDE) 10 ML BID IV Insulin Human Lispro (HUMALOG) 0 AC HS SUBQ Pantoprazole (PROTONIX) 40 MG DAILY@0600 PO Acetylcysteine (MUCOMYST FOR RT) 200 MG RTQ6H NEB (DC) Albuterol/Ipratropium (DUONEB) 3 ML RTQ6H NEB Glucagon (GLUCAGON) 1 MG ASDIR PRN IM Acetaminophen (TYLENOL) 650 MG Q4H PRN PRN PO Bisacodyl (DULCOLAX) 5 MG DAILY PRN PRN PO Dextrose/Water (DEXTROSE 10% IN WATER) 250 ML ASDIR PRN IV (CKD) Sodium Chloride (SODIUM CHLORIDE) 4 ML RTBID NEB (DC) Amiodarone HCl (CORDARONE) 200 MG Q12HR PO Atorvastatin Calcium (LIPITOR) 40 MG 2100 PO Docusate Sodium (COLACE) 100 MG BID PO Insulin Glargine (Lantus/Semglee) 20 UNIT BEDTIME SUBQ Melatonin (Melatonin) 3 MG BEDTIME PO Metoprolol Tartrate (LOPRESSOR) 25 MG Q12HR PO Ondansetron HCl (ZOFRAN ODT) 4 MG TID PRN PRN PO Sennosides (Senna Lax 8.6 MG TABLET) 17.2 MG BEDTIME PO Pacemaker: permanent Physical ExamGeneral appearance: chronically ill appearing, frail, obeseNeck: no JVDCardiovascular: CV assessment: regular rate and rhythmRespiratory: decreased breath sounds, no distressAbdomen: soft, non-tender, normal bowel sounds, no distentionGenitourinary: no flank pain, no urinary catheterUpper extremity: UE assessment: no edemaLower extremity: LE assessment: edema (1 + pitting edema)Musculoskeletal: normal inspectionNeuro/CAPTAIN FIRE PREVENTION BUREAU: alert, 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, normal speechSkin: poor skin turgorPsychiatry: normal affect, normal mood ResultsFindings/Data:Laboratory Tests 01/14 01/14 01/14 01/13 01/13 1059 [...] Magnesium (1.80 - 2.40 mg/dL) 1.83 Radiology data:Recent Impressions:RADIOLOGY - XR CHEST 1 V 01/14 906 Report Impression - Status: SIGNED Entered: 01/14/2022 1041 IMPRESSION: Minimal vascular congestion with subsegmental atelectasis in the right midlung zone and opacity at the left lung base. Impression By: Aurora Reddy M.D. Results: labs reviewed, vital signs reviewed Diagnosis, Assessment PlanProblem List/A P: 1. CAD (coronary artery disease) 2. Severe mitral regurgitation 3. Chronic a-fib 4. S/P CABG x 1 5. S/P MVR (mitral valve replacement) Plan discussed with: patient Free Text DxA P NotesFree Text DxA P Notes:Ms Giles is a 76 y/o female with PMHx of CAD, HLD, T2DM, RONA (CPAP at home), smoker, Crohn's disease, AF s/p ablation s/p PPM, and chronic lymphedema. She isrecovering from CABG and MVR. She is transferred to [facility] for inpatient rehabilitation. Cardiolgy is consulted for continuity of cardiac-related care. 1. CAD s/p CABG, MVR, and ILAA. On Plavix, aspirin, beta-delma, statin 2. Chronic AF s/p PPM/ablation. had ILAA during bypass no need for ACkeep K >4 and Mag above 2decrease amiodarone to 200 mg daily 3. Chronic Diastolic CHF on PO Lasix 40 mg BIDdeveloping LE edema - received extra IV lasix 40 mg yesterdayBicarb 38 - on Diamox 250 mg BID per nephrologyCXR - mild congestion and bilateral segmetal atelectasis - encourage I.S 4. Hypertension - normotensiveBP range: 114-147/66-82 (82.1-103.3) mmHgcontinue metoprolol tartrate 25 mg BIDlow dose lisinopril added by nephrology 5. HyperlipidemiaContinue statins. 6. MARCELLO - resolvedper Nephrology at 1658 at 1043 RPT #:[id number] OF REPORTPRProgress fsjs3951-13-16I53:37:00G.[id number] e for patient btajBJMLKFLUFLPTDX5068-75-12V71:58:28 HC ACL 2022-01-14 14:11:00 [id number]+KqwZFJ3Rd4I8BFevD 399e3GIInq7V LJciduEQ4hvlF74PWBIGhe021924-25-45O94:11:00 [facility] CenterCardioth[facility] Surgery ProgREPORT#:[id number] REPORT STATUS: SignedDATE:01/14/22 TIME: 1411 PATIENT: KIAH GILES UNIT #: [id number]#: [id number] [address] AGE: 76 SEX: F ATTEND: Jesus Landry [facility] AUTHOR: Kena Macedo VISUAL EFFECTS ARTIST * ALL edits or amendments must be made on the electronic/computer document * GeneralStatus post:1. Mitral valve replacement (31 Magna valve).2. Coronary artery bypass graft surgery x1 (ROBERTS to LAD).3. Isolation of left atrial appendage.4. Pericardiectomy. SubjectiveChief complaint:Follow-up CABG and MVR, isolation of left atrial appendage andpericardiectomy Review of SystemsConstitutional:Denies: fever, malaise. Allergy/Immun:Denies: allergic reaction. Respiratory:Denies: SOB. GI:Denies: abdominal pain, nausea, vomiting. Heme:Denies: bleeding. All systems rev neg: except as marked Objective GeneralVS/I OLast Documented: Result Date Time O2 Delivery Nasal [...] scale Measurement Method PATIENT WEIGHT: Weight (lb): 254Weight (oz): 13.67Weight (kg): 115.600 Physical ExamGeneral appearance: alert, orientedHEENT: anictericNeck: supple/no meningismusCardiovascular: normal heart sounds, regular rate rhythmRespiratory: aerating well, symmetric expansion, no distressAbdomen: soft, non-tender, no distentionExtremities: moves allNeuro/CAPTAIN FIRE PREVENTION BUREAU: alert, 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, normal speech, no motor deficitsPsychiatry: normal affect, normal mood Current MedicationsMedications:Active Meds + DC'd Last 24 HrsAcetazolamide (DIAMOX) 250 MG Q12HR PO Furosemide (LASIX 40 mg/4 mL INJECTION) 40 MG ONCE ONE IV (DC) Magnesium Chloride (MAG 64MG) 64 MG BID PO Furosemide (LASIX) 40 MG BID 9A 5P PO Lisinopril (ZESTRIL) 2.5 MG DAILY PO Ascorbic Acid (ASCORBIC ACID) 500 MG BID PO Bisacodyl (DULCOLAX) 10 MG DAILY PRN PRN RECTAL Potassium Chloride (POTASSIUM CHLORIDE 20MEQ TAB.ER) 40 MEQ DAILY PRN PRN PO Acetazolamide (DIAMOX) 250 MG DAILY PO (DC) Aspirin (ASPIRIN) 81 MG DAILY PO Clopidogrel Bisulfate (Plavix) 75 MG DAILY PO Cyanocobalamin (Vitamin B-12 500 mcg tab) 500 MCG DAILY PO Ferrous Sulfate (FERROUS SULFATE) 325 MG DAILY PO Insulin Glargine (Lantus/Semglee) 30 UNIT DAILY SUBQ Polyethylene Glycol (MIRALAX) 17 GM DAILY PO Sodium Chloride (SODIUM CHLORIDE) 10 ML BID IV Insulin Human Lispro (HUMALOG) 0 AC HS SUBQ Pantoprazole (PROTONIX) 40 MG DAILY@0600 PO Acetylcysteine (MUCOMYST FOR RT) 200 MG RTQ6H NEB Albuterol/Ipratropium (DUONEB) 3 ML RTQ6H NEB Glucagon (GLUCAGON) 1 MG ASDIR PRN IM Acetaminophen (TYLENOL) 650 MG Q4H PRN PRN PO Bisacodyl (DULCOLAX) 5 MG DAILY PRN PRN PO Dextrose/Water (DEXTROSE 10% IN WATER) 250 ML ASDIR PRN IV (CKD) Sodium Chloride (SODIUM CHLORIDE) 4 ML RTBID NEB Amiodarone HCl (CORDARONE) 200 MG Q12HR PO Atorvastatin Calcium (LIPITOR) 40 MG 2100 PO Docusate Sodium (COLACE) 100 MG BID PO Insulin Glargine (Lantus/Semglee) 20 UNIT BEDTIME SUBQ Melatonin (Melatonin) 3 MG BEDTIME PO Metoprolol Tartrate (LOPRESSOR) 25 MG Q12HR PO Ondansetron HCl (ZOFRAN ODT) 4 MG TID PRN PRN PO Sennosides (Senna Lax 8.6 MG TABLET) 17.2 MG BEDTIME PO ResultsFindings/Data:Laboratory Tests 01/14 01/14 01/14 01/13 01/13 1059 [...] Magnesium (1.80 - 2.40 mg/dL) 1.83 Radiology data:Recent Impressions:RADIOLOGY - XR CHEST 1 V 01/14 0906 Report Impression - Status: SIGNED Entered: 01/14/2022 1041 IMPRESSION: Minimal vascular congestion with subsegmental atelectasis in the right midlung zone and opacity at the left lung base. Impression By: Aurora - Maurice Reddy M.D. Diagnosis, Assessment PlanHospital course to date:This very pleasant 76-year-old female, from [facility], with past medical history of macular degeneration, obesity, obstructive sleep apnea (CPAP at home), former smoker, hypertension, hyperlipidemia, diabetes, Crohn's disease, chronic atrial fibrillation status post 3 ablations in the past (on Xarelto), pacemaker placement who had a recent admission to the hospital with heart failure symptoms. She has been admitted to the hospital today for elective heartcath. Coronary angiogram showed severe multivessel coronary artery disease not suitable for percutaneous intervention. s/p 1. Mitral valve replacement (31 Magna valve).2. Coronary artery bypass graft surgery x1 (ROBERTS to LAD).3. Isolation of left atrial appendage.4. Pericardiectomy. 01/14 Patient seen in rehabShe is alert and oriented, no respiratory distress on nasal cannulaNo respiratory distress on room airSternal incision intact and healing. Continue sternal precautions for 6 weeksRemove sutures at chest tube sites.Encourage I-S and ambulationDiuresis by nephrology. Replace potassiumContinue rehab Consultants: cardiology, cardiovascular surgery, hospitalist, nephrology at 1413 at 0703 RPT #:[id number] OF REPORTPRProgress nouk2815-93-69P56:11:00G.[id number] e for patient llstDGZYQSFRITKTKE6439-38-07B36:13:40 HC ACL 2022-01-14 11:16:00 [id number]/oHRWC+ Ii4WJNZyxgO9 R4j2iOfE5XOG8MtlbJ0VXT4/2992-15-00X63:16:00 [facility] CenterNephrology Progress NoteREPORT#:[id number] REPORT STATUS: SignedDATE:01/14/22 TIME: 1116 PATIENT: KIAH GILES UNIT #: [id number]#: [id number] [address] AGE: 76 SEX: F ATTEND: Jesus Landry [facility] AUTHOR: Suki Fuchs MD * ALL edits or amendments must be made on the electronic/computer document * SubjectiveChief complaint:CAD, S/P CABGHPI:This is a 76-year-old female who has past medical history of hypertension, diabetes, coronary artery disease, atrial fibrillation who presented with worsening shortness of breath and on further work-up was 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 She was withnormal kidney function prior to surgery and after her surgery she began to develop oliguria. Her procedure was done without any complications but after her surgery she did require pressor support for hypotension and she was intubated for respiratory acidosis and hypoxia and she was treated with vancomycin for infection treatment. She recovered kidney function and has been on diuretics for hypervolemia which has also improved significantly. 2She was seen in rehab today and was doing well, nursing staff reporting eating well. Objective GeneralVS/I O:Vital Signs: Date Time Temp Pulse Resp B/P B/P Pulse O2 O2 Flow FiO2 Mean Ox Delivery Rate 01/15 0645 [...] scale Measurement Method PATIENT WEIGHT: Weight (lb): 261Weight (oz): 3.96Weight (kg): 118.500 Physical ExamGeneral appearance: alert, awake, orientedHead/eyes: atraumatic, EOMIENT: moist mucous membranes, normal noseNeck: no JVD, no lymphadenopathyCardiovascular: normal heart sounds, regular rate and rhythmRespiratory: aerating well, clear to auscultationAbdomen: non-tender, softGenitourinary: no bladder distention, no flank painExtremities: pitting edema, no gangrene, no swelling Diagnosis, Assessment PlanFree Text A P:This is a 76-year-old female known to have hypertension, diabetes, atrial fibrillation, s/p permanent pacemaker and history of ablation presenting with shortness of breath and 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 Nephrology is following for: 1. Acute kidney injury: Most likely it is prerenal (cardiorenal), she has been hypotensive postoperatively with requirement for pressor support and inotropic support. Resolved with stable hemodynamics 2. Hypervolemia:Improved, on low dose lasix. 3. Hypokalemia: Plan to replace nd monitor closely. 4. Metabolic alkalosis secondary to diuretics. Plan to monitoe and give diamox if worsens. 01/09 1. Acute kidney injury: Most likely it is prerenal (cardiorenal), she has been hypotensive postoperatively with requirement for pressor support and inotropic support. Resolved with stable hemodynamics 2. Hypervolemia:Improved, on low dose lasix. 3. Hypokalemia: Plan to replace and monitor closely. 4. Metabolic alkalosis secondary to diuretics. Plan to monitor and continue diamox. 01/10 1. Acute kidney injury: Most likely it is prerenal (cardiorenal), she has been hypotensive postoperatively with requirement for pressor support and inotropic support. Resolved with stable hemodynamics 2. Hypervolemia:Improved, on low dose lasix.Dose increased to 40 Q12H today as she was looking volume overloaded. 3. Hypokalemia: Plan to replace and monitor closely. 4. Metabolic alkalosis secondary to diuretics. Plan to monitor and continue diamox. 01/12 1. Acute kidney injury: Most likely it is prerenal (cardiorenal), she has been hypotensive postoperatively with requirement for pressor support and inotropic support. Resolved with stable hemodynamics. 2. Hypervolemia:Improved, on low dose lasix.Dose increased to 40 Q12H as she was looking volume overloaded. 3. Hypokalemia: Plan to replace and monitor closely. 4. Metabolic alkalosis secondary to diuretics. Plan to monitor and continue diamox. 01/13 1. Acute kidney injury: Resolved with stable hemodynamics. 2. Hypervolemia:Improved, on low dose lasix.Dose increased to 40 Q12H as she was looking volume overloaded. 3. Hypokalemia: Plan to replace and monitor closely. 4. Metabolic alkalosis secondary to diuretics. Plan to monitor and continue diamox. 01/14 1. Acute kidney injury: Resolved with stable hemodynamics. 2. Hypervolemia:Improved, on low dose lasix.Dose increased to 40 Q12H as she was looking volume overloaded. 3. Hypokalemia: Plan to replace and monitor closely.Lisinopril helping keep potassium normal. 4. Metabolic alkalosis secondary to diuretics. Plan to monitor and continue diamox. Consultants: cardiology, cardiovascular surgery, hospitalist, nephrology at [address] [facility] #:[id number] OF REPORTPRProgress [id number]:16:00G.[id number] e for patient twqbAWXLRBAJGTIBFE0933-84-91N25:50:29 HC ACL 2022-01-14 11:05:00 [id number] +TtY4AB17l+S 20bIhZfIQYN0GaAi8lXw9aav0752-90-80Z06:05:00 [facility] CenterHospitalist Progress NoteREPORT#:[id number] REPORT STATUS: SignedDATE:01/14/22 TIME: 1105 PATIENT: KIAH GILES UNIT #: [id number]#: [id number] [address] AGE: 76 SEX: F ATTEND: Jesus Landry [facility] AUTHOR: Meryl Rosa MD * ALL edits or amendments must be made on the electronic/computer document * SubjectiveChief complaint:she sit on the chair . she is tire Review of SystemsConstitutional:Reports: generalized weakness. Denies: fatigue, fever, lethargy. Respiratory:Denies: productive cough (sputum), SOB, wheezing. Cardiovascular:Denies: chest pain, DOUGLASS (dyspnea on exertion), edema, orthopnea. GI:Denies: abdominal pain. Neuro:Denies: dizziness. Objective GeneralVS/I O:Vital Signs: Date Time Temp Pulse Resp B/P B/P Pulse O2 O2 Flow FiO2 Mean Ox Delivery Rate 01/14 09 93 Nasal 3 cannula 01/14 0632 36.7 [...] scale Measurement Method PATIENT WEIGHT: Weight (lb): 254Weight (oz): 13.67Weight (kg): 115.600 Medications:Active Meds + DC'd Last 24 HrsFurosemide (LASIX 40 mg/4 mL INJECTION) 40 MG ONCE ONE IV (DC) Magnesium Chloride (MAG 64MG) 64 MG BID PO Furosemide (LASIX) 40 MG BID 9A 5P PO Lisinopril (ZESTRIL) 2.5 MG DAILY PO Ascorbic Acid (ASCORBIC ACID) 500 MG BID PO Bisacodyl (DULCOLAX) 10 MG DAILY PRN PRN RECTAL Potassium Chloride (POTASSIUM CHLORIDE 20MEQ TAB.ER) 40 MEQ DAILY PRN PRN PO Acetazolamide (DIAMOX) 250 MG DAILY PO Aspirin (ASPIRIN) 81 MG DAILY PO Clopidogrel Bisulfate (Plavix) 75 MG DAILY PO Cyanocobalamin (Vitamin B-12 500 mcg tab) 500 MCG DAILY PO Ferrous Sulfate (FERROUS SULFATE) 325 MG DAILY PO Insulin Glargine (Lantus/Semglee) 30 UNIT DAILY SUBQ Polyethylene Glycol (MIRALAX) 17 GM DAILY PO Sodium Chloride (SODIUM CHLORIDE) 10 ML BID IV Insulin Human Lispro (HUMALOG) 0 AC HS SUBQ Pantoprazole (PROTONIX) 40 MG DAILY@0600 PO Acetylcysteine (MUCOMYST FOR RT) 200 MG RTQ6H NEB Albuterol/Ipratropium (DUONEB) 3 ML RTQ6H NEB Glucagon (GLUCAGON) 1 MG ASDIR PRN IM Acetaminophen (TYLENOL) 650 MG Q4H PRN PRN PO Bisacodyl (DULCOLAX) 5 MG DAILY PRN PRN PO Dextrose/Water (DEXTROSE 10% IN WATER) 250 ML ASDIR PRN IV (CKD) Sodium Chloride (SODIUM CHLORIDE) 4 ML RTBID NEB Amiodarone HCl (CORDARONE) 200 MG Q12HR PO Atorvastatin Calcium (LIPITOR) 40 MG 2100 PO Docusate Sodium (COLACE) 100 MG BID PO Insulin Glargine (Lantus/Semglee) 20 UNIT BEDTIME SUBQ Melatonin (Melatonin) 3 MG BEDTIME PO Metoprolol Tartrate (LOPRESSOR) 25 MG Q12HR PO Ondansetron HCl (ZOFRAN ODT) 4 MG TID PRN PRN PO Sennosides (Senna Lax 8.6 MG TABLET) 17.2 MG BEDTIME PO Physical ExamGeneral appearance: alert, awake, orientedHead/Eyes: atraumatic, normal conjunctiva/sclera, normal eyelids/periorb.Neck: full range of motion, non-tenderCardiovascular: normal heart sounds, regular rate rhythmRespiratory: dyspneic, on oxygenAbdomen: non-tender, normal bowel sounds, soft, no distentionExtremities: edema, moves allNeuro/CAPTAIN FIRE PREVENTION BUREAU: alert, 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, CNII-XII intact, normal speech, no motor deficits, no sensory deficitsSkin: dry, intact Diagnosis, Assessment PlanConsultants: cardiology, cardiovascular surgery, hospitalist, nephrology Free Text DxA P NotesFree text DxA P notes:general weakness CAD - post CABGCHFHTNDMHLDafib OSAmorbid obesity CAD -- cardiology consult CV surgeon [...] 01/10 Continue bowel regimen, adjust as needed if no results. Replace K.01/11 +BM. Replace K+, discussed with RN to give PRN K on - she complaint of tire - not sleep well last night -- continue bipap at night -- continue PT/OT 01/13 -- she sit on the chair . no complaint -- continue PT/OT note is delay enter at 1107 RPT #:[id number] OF REPORTPRProgress [id number]:05:00G.[id number] e for patient rrlcJNCGHNZYJDOIJI4059-00-92P05:08:15 HC ACL 2022-01-14 11:03:00 [id number] xK66EEJSD0lL mTiXZ1LJKGOWJrrvetnAWy3R9005-33-32H20:03:00 [facility] Campusist Progress NoteREPORT#:[id number] REPORT STATUS: SignedDATE:01/14/22 TIME: 1103 PATIENT: KIAH GILES UNIT #: [id number]#: [id number] [address] AGE: 76 SEX: F ATTEND: Jesus Landry [facility] AUTHOR: Meryl Rosa MD * ALL edits or amendments must be made on the electronic/computer document * SubjectiveChief complaint:she walked 60 feets today as PT. no cp and sob Review of SystemsConstitutional:Reports: generalized weakness. Denies: fatigue, fever, lethargy. Respiratory:Denies: productive cough (sputum), SOB, wheezing. Cardiovascular:Denies: chest pain, DOUGLASS (dyspnea on exertion), edema, orthopnea, palpitations. GI:Denies: abdominal pain, nausea, vomiting. Neuro:Denies: dizziness. Objective GeneralVS/I O:Vital Signs: Date Time Temp Pulse Resp B/P B/P Pulse O2 O2 Flow FiO2 Mean Ox Delivery Rate 01/14 901 93 Nasal 3 cannula 01/14 0632 36.7 [...] scale Measurement Method PATIENT WEIGHT: Weight (lb): 254Weight (oz): 13.67Weight (kg): 115.600 Medications:Active Meds + DC'd Last 24 HrsFurosemide (LASIX 40 mg/4 mL INJECTION) 40 MG ONCE ONE IV (DC) Magnesium Chloride (MAG 64MG) 64 MG BID PO Furosemide (LASIX) 40 MG BID 9A 5P PO Lisinopril (ZESTRIL) 2.5 MG DAILY PO Ascorbic Acid (ASCORBIC ACID) 500 MG BID PO Bisacodyl (DULCOLAX) 10 MG DAILY PRN PRN RECTAL Potassium Chloride (POTASSIUM CHLORIDE 20MEQ TAB.ER) 40 MEQ DAILY PRN PRN PO Acetazolamide (DIAMOX) 250 MG DAILY PO Aspirin (ASPIRIN) 81 MG DAILY PO Clopidogrel Bisulfate (Plavix) 75 MG DAILY PO Cyanocobalamin (Vitamin B-12 500 mcg tab) 500 MCG DAILY PO Ferrous Sulfate (FERROUS SULFATE) 325 MG DAILY PO Insulin Glargine (Lantus/Semglee) 30 UNIT DAILY SUBQ Polyethylene Glycol (MIRALAX) 17 GM DAILY PO Sodium Chloride (SODIUM CHLORIDE) 10 ML BID IV Insulin Human Lispro (HUMALOG) 0 AC HS SUBQ Pantoprazole (PROTONIX) 40 MG DAILY@0600 PO Acetylcysteine (MUCOMYST FOR RT) 200 MG RTQ6H NEB Albuterol/Ipratropium (DUONEB) 3 ML RTQ6H NEB Glucagon (GLUCAGON) 1 MG ASDIR PRN IM Acetaminophen (TYLENOL) 650 MG Q4H PRN PRN PO Bisacodyl (DULCOLAX) 5 MG DAILY PRN PRN PO Dextrose/Water (DEXTROSE 10% IN WATER) 250 ML ASDIR PRN IV (CKD) Sodium Chloride (SODIUM CHLORIDE) 4 ML RTBID NEB Amiodarone HCl (CORDARONE) 200 MG Q12HR PO Atorvastatin Calcium (LIPITOR) 40 MG 2100 PO Docusate Sodium (COLACE) 100 MG BID PO Insulin Glargine (Lantus/Semglee) 20 UNIT BEDTIME SUBQ Melatonin (Melatonin) 3 MG BEDTIME PO Metoprolol Tartrate (LOPRESSOR) 25 MG Q12HR PO Ondansetron HCl (ZOFRAN ODT) 4 MG TID PRN PRN PO Sennosides (Senna Lax 8.6 MG TABLET) 17.2 MG BEDTIME PO Physical ExamGeneral appearance: alert, awake, orientedHead/Eyes: atraumatic, normal conjunctiva/sclera, normal eyelids/periorb.Neck: full range of motion, non-tenderCardiovascular: normal heart sounds, regular rate rhythmRespiratory: dyspneic, on oxygenAbdomen: non-tender, normal bowel sounds, soft, no distentionExtremities: edema, moves allNeuro/[employer]TAIN [employer]: alert, 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, CNII-XII intact, normal speech, no motor deficits, no sensory deficitsSkin: dry, intact ResultsFindings/Data:Laboratory Tests 01/14 01/14 01/13 01/13 0504 0443 [...] Magnesium (1.80 - 2.40 mg/dL) 1.83 Radiology data:Recent Impressions:RADIOLOGY - XR CHEST 1 V 01/14 0906 Report Impression - Status: SIGNED Entered: 01/14/2022 1041 IMPRESSION: Minimal vascular congestion with subsegmental atelectasis in the right midlung zone and opacity at the left lung base. Impression By: Aurora Reddy M.D. Diagnosis, Assessment PlanConsultants: cardiology, cardiovascular surgery, hospitalist, nephrology Free Text DxA P NotesFree text DxA P notes:general weakness CAD - post CABGCHFHTNDMHLDafib OSAmorbid obesity CAD -- cardiology consult CV surgeon [...] 01/10 Continue bowel regimen, adjust as needed if no results. Replace K.01/11 +BM. Replace K+, discussed with RN to give PRN K on - she complaint of tire - not sleep well last night -- continue bipap at night -- continue PT/OT 01/13 -- she sit on the chair . no complaint -- continue PT/OT 01/14 -- she get stronger -- continue current medication -- continue PT/OT at [address] [facility] #:[id number] OF REPORTPRProgress jlfo1298-76-53V06:03:00G.[id number] e for patient bkgyODMUPWDENRQVDN9513-08-85B56:09:25 [facility] 2022-01-14 05:59:00 [id number]/eBfaaBgQNdepJWoipB+ FMHRQRM0uoyo TgLEn+y5I8yg+thCWbz29frX1354-70-36C18:59:[address] [facility] ([facility])Rehab Progress NoteREPORT#:[id number] REPORT STATUS: SignedDATE:01/14/22 TIME: 05 PATIENT: KIAH GILES UNIT #: [id number]#: [id number] [address] AGE: 76 SEX: F ATTEND: Jesus Landry [facility] AUTHOR: Herberth Pantoja * ALL edits or amendments must be made on the electronic/computer document * SubjectiveChief complaint:Rehab follow-upSitting up in chairStates feels okayUsing CPAP at nightPatient on 3-4 L, sats 100%NAD, eating 50-80%Reports BLE edema+ BMDenies GOLD/N/V/D/CP14 systems reviewed and neg. except that above. Objective GeneralVS:Vital Signs: Date Time Temp Pulse Resp B/P B/P Pulse O2 O2 Flow FiO2 Mean Ox Delivery Rate 01/13 2338 [...] Nasal 4 cannula PATIENT WEIGHT: Weight (lb): 253Weight (oz): 11.72Weight (kg): 115.091 Medications:Active Meds + DC'd Last 24 HrsFurosemide (LASIX 40 mg/4 mL INJECTION) 40 MG ONCE ONE IV (DC) Magnesium Chloride (MAG 64MG) 64 MG BID PO Furosemide (LASIX) 40 MG BID 9A 5P PO Lisinopril (ZESTRIL) 2.5 MG DAILY PO Ascorbic Acid (ASCORBIC ACID) 500 MG BID PO Bisacodyl (DULCOLAX) 10 MG DAILY PRN PRN RECTAL Potassium Chloride (POTASSIUM CHLORIDE 20MEQ TAB.ER) 40 MEQ DAILY PRN PRN PO Acetazolamide (DIAMOX) 250 MG DAILY PO Aspirin (ASPIRIN) 81 MG DAILY PO Clopidogrel Bisulfate (Plavix) 75 MG DAILY PO Cyanocobalamin (Vitamin B-12 500 mcg tab) 500 MCG DAILY PO Ferrous Sulfate (FERROUS SULFATE) 325 MG DAILY PO Insulin Glargine (Lantus/Semglee) 30 UNIT DAILY SUBQ Polyethylene Glycol (MIRALAX) 17 GM DAILY PO Sodium Chloride (SODIUM CHLORIDE) 10 ML BID IV Insulin Human Lispro (HUMALOG) 0 AC HS SUBQ Pantoprazole (PROTONIX) 40 MG DAILY@0600 PO Acetylcysteine (MUCOMYST FOR RT) 200 MG RTQ6H NEB Albuterol/Ipratropium (DUONEB) 3 ML RTQ6H NEB Glucagon (GLUCAGON) 1 MG ASDIR PRN IM Acetaminophen (TYLENOL) 650 MG Q4H PRN PRN PO Bisacodyl (DULCOLAX) 5 MG DAILY PRN PRN PO Dextrose/Water (DEXTROSE 10% IN WATER) 250 ML ASDIR PRN IV (CKD) Sodium Chloride (SODIUM CHLORIDE) 4 ML RTBID NEB Amiodarone HCl (CORDARONE) 200 MG Q12HR PO Atorvastatin Calcium (LIPITOR) 40 MG 2100 PO Docusate Sodium (COLACE) 100 MG BID PO Insulin Glargine (Lantus/Semglee) 20 UNIT BEDTIME SUBQ Melatonin (Melatonin) 3 MG BEDTIME PO Metoprolol Tartrate (LOPRESSOR) 25 MG Q12HR PO Ondansetron HCl (ZOFRAN ODT) 4 MG TID PRN PRN PO Sennosides (Senna Lax 8.6 MG TABLET) 17.2 MG BEDTIME PO Functional ProgressFunctional progress: Wheelchair Gait distance: 75 ft, 50 ft Gait device: Extra time for safety Gait belt Rolling walker Wheelchair distance: 150 ft Wheelchair device: Manual WC PT daily note comment: Patient was in the toilet, agreeable to therapy. Demonstrated the following: - [...] Assisted patient back in room, trnasfer from W/C>recliner, left with all needs within reach. A: Patient exhibited a positive response to today's session as evidenced by improved transfer and gait. Patient is making good progress towards STG/ LTG. However, patient has not yet met goals. Patient will benefit from continued intervention with progression of exercise and training. P: Continued POC working towards STG/ LTG. Physical ExamGeneral appearance: alert, awakePsych: alert, normal affect, oriented x 3HEENT: anicteric, mucosal membranes moist, pupils reactive to light, sclera clearNeck: non-tender, supple, no JVDCardiovascular: regular rate rhythm, S1/S2, no murmurRespiratory: diminished breath sounds, on oxygen, clear bilaterallyAbdomen: obese, bowel sounds present, non-distended, soft, non-tenderSkin: dry, normal temperature, no rash, INCISIONS: CDI, sutures x 2.Musculoskeletal - general: Musculoskeletal - general: swelling (BLE-lymphedema), normal tone, calves NT,no cordsNeuro/[employer]: alert, 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, CNII-XII intact, no sensory deficits, MMT BUE 4/5, hips 3-/5 distal 4/5. ResultsFindings/Data:Laboratory Tests 01/14 01/14 01/13 01/13 01/13 0504 [...] 2.40 mg/dL) 1.83 01/13 01/12 01/12 01/12 01/12 0446 1957 1544 1041 0549 Chemistry POC Glucose (70 [...] - 110 MG/DL) 140 H Laboratory Tests 01/125 Hematology WBC (4.5 - 11.0 x10 3/uL) [...] (Auto) (14.0 - 32.0 %) 5.5 L Colquitt % (Auto) (4.8 - 9.0 %) 8.5 Eos % (Auto) (0.3 - 3.7 %) 2.5 Baso % (Auto) (0.0 - 2.0 %) 0.5 Neut # (Auto) (2.0 - 7.6 x10 3/uL) 4.99 Lymph # (Auto) (1.0 - 3.8 x10 3/uL) 0.33 L [place]itt # (Auto) (0.1 - 0.8 x10 3/uL) 0.51 Eos # (Auto) (0.0 - 0.2 x10 3/uL) 0.15 Baso # (Auto) (0.0 - 0.2 x10 3/uL) 0.03 Abs Immat Gran (auto) (0.00 - 0.03 x10 3/uL) 0.01 Add Manual Diff NO Immature Gran % (0.0 - 2.0 %) 0.2 Nucleated RBC % (0 - 0 %) 0.0 Nucleated RBCs # (Man) (0.0 - 0.1 x10 3/uL) 0.00 Poikilocytosis 1+ Anisocytosis 2+ Macrocytosis 1+ Schistocytes 1+ Diagnosis, Assessment PlanFree Text A P:Assessment:Critical illness myopathyConstrictive pericarditisSevere mitral nabzjawfqqtbfGLV94/7: Status post CABG x1 (ROBERTS to LAD), ILAp, pvvxtkrlgkbaup03/7: S/p MVR10: Echo-EF 55-59%, mild to moderately dilated right ventricle, LA and RA dilatation, normally functioning MV bioprosthesisChronic AF, s/p PPM/ablation-rate controlled-pacedVolume overload-BLE edemaHistory of lymphedemaGeneralized weaknessDeconditioningAcute blood loss anemiaHypertensionMorbid obesityHLD Crohn's diseaseSmokerHypoxic respiratory failureHypokalemia/hypomagnesemia secondary to diureticsAKI resolvedSignificant impaired ADLs, mobility, gait, balance and endurance Plan:-Comprehensive inpatient rehabilitation with physical, occupational and speech therapy 3 hours a day for 5 to 6 days per week-05/10 rehabilitation physician supervision-05/10 rehabilitation nursing care-Case management for safe discharge planning-Rehab MD to monitor comorbidities and functional progress.-Decubitus prevention-protective hydrating lotion-turn every 2 ayaob-eablrar-Nuebc program-MiraLAX and Senokot-Nutrition, monitor the patient's p.o. intake, check albumin 3.5 and prealbumin,dietary consult, protein supplements.-Strict fall and safety precaution-DVT prophylaxis-SCDs/antiembolism stockings-GI yviqyazioer-Fckfnako-Rztqvtis control-continue insulin-blood sugars good-as per ydkdsrfx-OCI-mlpqohje-nephrology following-Respiratory insufficiency-wean O2-postop pulmonary protocol, encourage I-S, deep cough and breathing exercises, slowly improving-CAD s/p CABG, MVR, and ILAA-on DAPT post-op care per CTS-Acute/chr AF s/p PPM/ablation. Rate controlled, paced rhythm-had ILAA during bypass, no need for AC-as per cardiology-Volume tocrauzm-mwkojgeq-uq diuretics, strict I's and O's Daily-HTN. BP stable-on goqaqhhfan-UQK-Xs statins.-Crohn's disease. Per IM.-Early mobilization-OOB to chair-Work on bed mobility, transfer training, ADLs, pre-gait and gait exercises as tolerable. -Increase endurance and strength-Pain nmtuxrmrca-Svfovtzbyuw-imtgnmtoxu, CVS, medicine, nephrology-Labs reviewed-WBC normal, hemoglobin improved 9.8 improved, platelets normal, potassium 3.5, creatinine 1.0, magnesium 1.77, BNP 232, 180 -replete potassium and magnesium as /28: SOB-chest e-tvd-tiugytil aeration bilaterally. Residual interstitial andperihilar opacities. Subsegmental atelectasis. Residual small volume pleural effusions.-Continue CPAP at night-Encourage I-S and ambulation-BLE edema-ANA PAULA hose and elevation, exercise, diuretics-Diuresis as per koowbaepgg-Yrbxnm-xaddagsc ferrous sulfate, B12, vitamin C monitor H H-Monitor ybsaykexd-Tpvzke-Xddtpy-Continue current medications-Sternal incision intact and healing. Continue sternal precautions for 6 weeks-Monitor complains of being tired and sleepy-Therapeutic rest break given in between due to fair activity tolerance and patient reported Omaira RPE 4 (1-10) somewhat Hard SOB during activity. -Patient still with SOB and desaturates with exercise-we will have Dr. Ramos evaluate patient.-Check labs. Magnesium 1.83-Advance therapies as tolerated PM RPlease see team note.Plan and goals discussed with the patient. I agree with the teams findingELOS: [01/21]EV-mkrm-emmez with daughter-HH versus outpatient cardiac rehabilitationDME-RW, wheelchair TT 34 min>50% with discussing with patient about discharge plan, SOB, therapies,rehab plan of care, goals, needs, and medical issues, examination. MAR and EMRreviewed. All Questions answered.Rehab attestation:Face to face exam completed. Treatment plan discussed with patient. Meets continued stay criteria. Agree with interdisciplinary treatment plan. at 1902 RPT #:[id number] OF REPORTPRProgress htck4351-49-40Q05:59:00G.[id number] e for patient kbtjERYSXJLDTZHIES2588-98-00B76:03:08 [facility] 2022-01-13 18:45:00 [id number] kopvMbcCP7yg lxBeGpKG7x6f+kK+y2sK7yox9384-04-36W18:45:00 [facility] NoteREPORT#:[id number] REPORT STATUS: SignedDATE:01/13/22 TIME: 184 PATIENT: KIAH GILES UNIT #: [id number]#: [id number] [address] AGE: 76 SEX: F ATTEND: Jesus Landry [facility] AUTHOR: Suki Fuchs MD * ALL edits or amendments must be made on the electronic/computer document * SubjectiveChief complaint:CAD, S/P CABGHPI:This is a 76-year-old female who has past medical history of hypertension, diabetes, coronary artery disease, atrial fibrillation who presented with worsening shortness of breath and on further work-up was 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 She was withnormal kidney function prior to surgery and after her surgery she began to develop oliguria. Her procedure was done without any complications but after her surgery she did require pressor support for hypotension and she was intubated for respiratory acidosis and hypoxia and she was treated with vancomycin for infection treatment. She recovered kidney function and has been on diuretics for hypervolemia which has also improved significantly. he was seen in rehab today and was doing well, nursing staff reporting eating well. Objective GeneralVS/I O:Vital Signs: Date Time Temp Pulse Resp B/P [...] scale Measurement Method PATIENT WEIGHT: Weight (lb): 254Weight (oz): 13.67Weight (kg): 115.600 Physical ExamGeneral appearance: alert, awake, orientedHead/eyes: atraumatic, EOMIENT: moist mucous membranes, normal noseNeck: no JVD, no lymphadenopathyCardiovascular: normal heart sounds, regular rate and rhythmRespiratory: aerating well, clear to auscultationAbdomen: non-tender, softGenitourinary: no bladder distention, no flank painExtremities: pitting edema, no gangrene, no swelling Diagnosis, Assessment PlanFree Text A P:This is a 76-year-old female known to have hypertension, diabetes, atrial fibrillation, s/p permanent pacemaker and history of ablation presenting with shortness of breath and 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 Nephrology is following for: 1. Acute kidney injury: Most likely it is prerenal (cardiorenal), she has been hypotensive postoperatively with requirement for pressor support and inotropic support. Resolved with stable hemodynamics 2. Hypervolemia:Improved, on low dose lasix. 3. Hypokalemia: Plan to replace nd monitor closely. 4. Metabolic alkalosis secondary to diuretics. Plan to monitoe and give diamox if worsens. 01/09 1. Acute kidney injury: Most likely it is prerenal (cardiorenal), she has been hypotensive postoperatively with requirement for pressor support and inotropic support. Resolved with stable hemodynamics 2. Hypervolemia:Improved, on low dose lasix. 3. Hypokalemia: Plan to replace and monitor closely. 4. Metabolic alkalosis secondary to diuretics. Plan to monitor and continue diamox. 01/10 1. Acute kidney injury: Most likely it is prerenal (cardiorenal), she has been hypotensive postoperatively with requirement for pressor support and inotropic support. Resolved with stable hemodynamics 2. Hypervolemia:Improved, on low dose lasix.Dose increased to 40 Q12H today as she was looking volume overloaded. 3. Hypokalemia: Plan to replace and monitor closely. 4. Metabolic alkalosis secondary to diuretics. Plan to monitor and continue diamox. 01/12 1. Acute kidney injury: Most likely it is prerenal (cardiorenal), she has been hypotensive postoperatively with requirement for pressor support and inotropic support. Resolved with stable hemodynamics. 2. Hypervolemia:Improved, on low dose lasix.Dose increased to 40 Q12H as she was looking volume overloaded. 3. Hypokalemia: Plan to replace and monitor closely. 4. Metabolic alkalosis secondary to diuretics. Plan to monitor and continue diamox. 01/13 1. Acute kidney injury: Resolved with stable hemodynamics. 2. Hypervolemia:Improved, on low dose lasix.Dose increased to 40 Q12H as she was looking volume overloaded. 3. Hypokalemia: Plan to replace and monitor closely. 4. Metabolic alkalosis secondary to diuretics. Plan to monitor and continue diamox. Consultants: cardiology, cardiovascular surgery, hospitalist, nephrology at 0812 RPT #:[id number] OF REPORTPRProgress [id number]:45:00G.[id number] e for patient ldjkHXXPZPEQQDPHNM5712-73-04G12:12:37 [facility] 2022-01-13 14:03:00 [id number]/o0uIarZvCTa JM4toLOAGIBj a2IhWpdEpKACVAFOiLdQNRMo8866-08-54P25:03:[address] [facility] ([facility])Cardiology Progress NoteREPORT#:[id number] REPORT STATUS: SignedDATE:01/13/22 TIME: 1403 PATIENT: KIAH GILES UNIT #: [id number]#: [id number] [address] AGE: 76 SEX: F ATTEND: Jesus Landry [facility] AUTHOR: Isabella Clemens AGACNP * ALL edits or amendments must be made on the electronic/computer document * SubjectiveChief complaint:chronic LE edemachronic SOB Objective GeneralVS/I O:24 hour I O ending at 0700: 01/13 [...] 40 01/12 2032 95 Nasal 4 cannula 01/13 2000 Nasal 4 cannula 01/12 191 36.7 76 19 133/78 96.0 93 Nasal 2 cannula 01/12 1545 36.7 69 18 119/70 86.3 95 Nasal cannula 01/12 1505 Nasal 4 cannula 01/12 1408 Nasal 4 cannula PATIENT WEIGHT: Weight (lb): 253Weight (oz): 11.72Weight (kg): 115.091 Medications:Active Meds + DC'd Last 24 HrsMagnesium Chloride (MAG 64MG) 64 MG BID PO Furosemide (LASIX) 40 MG BID 9A 5P PO Lisinopril (ZESTRIL) 2.5 MG DAILY PO Ascorbic Acid (ASCORBIC ACID) 500 MG BID PO Bisacodyl (DULCOLAX) 10 MG DAILY PRN PRN RECTAL Potassium Chloride (POTASSIUM CHLORIDE 20MEQ TAB.ER) 40 MEQ DAILY PRN PRN PO Acetazolamide (DIAMOX) 250 MG DAILY PO Aspirin (ASPIRIN) 81 MG DAILY PO Clopidogrel Bisulfate (Plavix) 75 MG DAILY PO Cyanocobalamin (Vitamin B-12 500 mcg tab) 500 MCG DAILY PO Ferrous Sulfate (FERROUS SULFATE) 325 MG DAILY PO Insulin Glargine (Lantus/Semglee) 30 UNIT DAILY SUBQ Polyethylene Glycol (MIRALAX) 17 GM DAILY PO Sodium Chloride (SODIUM CHLORIDE) 10 ML BID IV Insulin Human Lispro (HUMALOG) 0 AC HS SUBQ Pantoprazole (PROTONIX) 40 MG DAILY@0600 PO Acetylcysteine (MUCOMYST FOR RT) 200 MG RTQ6H NEB Albuterol/Ipratropium (DUONEB) 3 ML RTQ6H NEB Glucagon (GLUCAGON) 1 MG ASDIR PRN IM Acetaminophen (TYLENOL) 650 MG Q4H PRN PRN PO Bisacodyl (DULCOLAX) 5 MG DAILY PRN PRN PO Dextrose/Water (DEXTROSE 10% IN WATER) 250 ML ASDIR PRN IV (CKD) Sodium Chloride (SODIUM CHLORIDE) 4 ML RTBID NEB Amiodarone HCl (CORDARONE) 200 MG Q12HR PO Atorvastatin Calcium (LIPITOR) 40 MG 2100 PO Docusate Sodium (COLACE) 100 MG BID PO Insulin Glargine (Lantus/Semglee) 20 UNIT BEDTIME SUBQ Melatonin (Melatonin) 3 MG BEDTIME PO Metoprolol Tartrate (LOPRESSOR) 25 MG Q12HR PO Ondansetron HCl (ZOFRAN ODT) 4 MG TID PRN PRN PO Sennosides (Senna Lax 8.6 MG TABLET) 17.2 MG BEDTIME PO Physical ExamGeneral appearance: obese, alert, awake, oriented, no acute distress, pleasant, conversationalENT: normal noseNeck: no JVDCardiovascular: CV assessment: regular rate and rhythmRespiratory: decreased breath sounds, no distressAbdomen: soft, non-tender, normal bowel sounds, no distentionGenitourinary: no flank pain, no urinary catheterUpper extremity: UE assessment: no edemaLower extremity: LE assessment: edema (1 + pitting edema)Musculoskeletal: normal inspectionNeuro/[employer]: alert, 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, normal speechSkin: poor skin turgorPsychiatry: normal affect, normal mood ResultsFindings/Data:Laboratory Tests 01/13 01/13 01/12 01/12 1052 0446 1957 1544 Chemistry POC Glucose (70 - 110 MG/DL) 164 H 143 H 159 H 233 H Results: labs reviewed, vital signs reviewed, rhythm personally rev'd Diagnosis, Assessment PlanProblem List/A P: 1. CAD (coronary artery disease) 2. Severe mitral regurgitation 3. Chronic a-fib 4. S/P CABG x 1 5. S/P MVR (mitral valve replacement) Plan discussed with: patient Free Text DxA P NotesFree Text DxA P Notes:Ms Giles is a 76 y/o female with PMHx of CAD, HLD, T2DM, RONA (CPAP at home), smoker, Crohn's disease, AF s/p ablation s/p PPM, and chronic lymphedema. She isrecovering from CABG and MVR. She is transferred to [facility] for [facility] rehabilitation. Cardiolgy is consulted for continuity of cardiac-related care. 1. CAD s/p CABG, MVR, and ILAA. On Plavix, aspirin, beta-delma, statin 2. Chronic AF s/p PPM/ablation. had ILAA during bypass no need for ACkeep K >4 and Mag above 2taper amiodarone prior to discharge 3. Chronic Diastolic CHF on PO Lasix 40 mg BIDdeveloping LE edema - will give extra IV lasix 40 mg a4wpuoa BMP, Mag, CXR in AM 4. Hypertension - normotensive todayBP range: 119-147/72-82 mmHgcontinue metoprolol tartrate 25 mg BIDlow dose lisinopril added by nephrology 5. HyperlipidemiaContinue statins. 6. MARCELLO - resolvedper Nephrology at 1734 at 1043 RPT #:[id number] OF REPORTPRProgress fowa1276-01-55Q67:03:00G.[id number] e for patient hixnXMSHGWXTRDSRNO1120-56-55I30:35:18 [facility] 2022-01-13 08:04:00 [id number]/oFWVoyFy8bTHjohcj4Yf9xvW Bvo2ruvWBd7z 2FrZRcxMfRvVMlJTMXllNeTd8217-81-96A58:04:[address] [facility] ([facility]Re[facility] Progress NoteREPORT#:[id number] REPORT STATUS: SignedDATE:01/13/22 TIME: 0804 PATIENT: KIAH GILES UNIT #: [id number]#: [id number] [address] AGE: 76 SEX: F ATTEND: Jesus Landry [facility] AUTHOR: Jesus Landry MD * ALL edits or amendments must be made on the electronic/computer document * SubjectiveChief complaint:Rehab follow-upReports Omaira RPE 4 (1-10) somewhat Hard SOB during activity with therapy todayUsing CPAP at nightPatient on 3-4 L, sats 100%NAD, eating 50-80%Reports BLE edemaPositive BMDenies GOLD/N/V/D/CP14 systems reviewed and neg. except that above. Objective GeneralVS:Vital Signs: Date Time Temp Pulse Resp B/P B/P Pulse O2 O2 Flow FiO2 Mean Ox Delivery Rate 01/13 0732 97.7 75 17 133/76 95.4 99 Nasal 4 cannula 01/13 0315 95 Nasal 4 cannula 01/12 2308 97.7 82 20 119/72 0.0 96 01/12 2255 70 96 40 01/13 2032 95 Nasal 4 cannula 01/13 2000 Nasal 4 cannula 01/12 1913 98.1 76 19 133/78 96.0 93 Nasal 2 cannula 01/12 1545 98.1 69 18 119/70 86.3 95 Nasal cannula 01/12 1505 Nasal 4 cannula 01/12 1408 Nasal 4 cannula 01/12 1003 99 Nasal 4 cannula PATIENT WEIGHT: Weight (lb): 253Weight (oz): 11.72Weight (kg): 115.091 Medications:Active Meds + DC'd Last 24 HrsMagnesium Chloride (MAG 64MG) 64 MG BID PO Furosemide (LASIX) 40 MG BID 9A 5P PO Lisinopril (ZESTRIL) 2.5 MG DAILY PO Ascorbic Acid (ASCORBIC ACID) 500 MG BID PO Bisacodyl (DULCOLAX) 10 MG DAILY PRN PRN RECTAL Potassium Chloride (POTASSIUM CHLORIDE 20MEQ TAB.ER) 40 MEQ DAILY PRN PRN PO Acetazolamide (DIAMOX) 250 MG DAILY PO Aspirin (ASPIRIN) 81 MG DAILY PO Clopidogrel Bisulfate (Plavix) 75 MG DAILY PO Cyanocobalamin (Vitamin B-12 500 mcg tab) 500 MCG DAILY PO Ferrous Sulfate (FERROUS SULFATE) 325 MG DAILY PO Insulin Glargine (Lantus/Semglee) 30 UNIT DAILY SUBQ Polyethylene Glycol (MIRALAX) 17 GM DAILY PO Sodium Chloride (SODIUM CHLORIDE) 10 ML BID IV Insulin Human Lispro (HUMALOG) 0 AC HS SUBQ Pantoprazole (PROTONIX) 40 MG DAILY@0600 PO Acetylcysteine (MUCOMYST FOR RT) 200 MG RTQ6H NEB Albuterol/Ipratropium (DUONEB) 3 ML RTQ6H NEB Glucagon (GLUCAGON) 1 MG ASDIR PRN IM Acetaminophen (TYLENOL) 650 MG Q4H PRN PRN PO Bisacodyl (DULCOLAX) 5 MG DAILY PRN PRN PO Dextrose/Water (DEXTROSE 10% IN WATER) 250 ML ASDIR PRN IV (CKD) Sodium Chloride (SODIUM CHLORIDE) 4 ML RTBID NEB Amiodarone HCl (CORDARONE) 200 MG Q12HR PO Atorvastatin Calcium (LIPITOR) 40 MG 2100 PO Docusate Sodium (COLACE) 100 MG BID PO Insulin Glargine (Lantus/Semglee) 20 UNIT BEDTIME SUBQ Melatonin (Melatonin) 3 MG BEDTIME PO Metoprolol Tartrate (LOPRESSOR) 25 MG Q12HR PO Ondansetron HCl (ZOFRAN ODT) 4 MG TID PRN PRN PO Sennosides (Senna Lax 8.6 MG TABLET) 17.2 MG BEDTIME PO Physical ExamGeneral appearance: alert, awake, no acute distressPsych: alert, normal affect, oriented x 3HEENT: anicteric, mucosal membranes moist, pupils reactive to light, sclera clearNeck: non-tender, supple, no JVDCardiovascular: regular rate rhythm, S1/S2, no murmurRespiratory: diminished breath sounds, on oxygen, clear bilaterallyAbdomen: obese, bowel sounds present, non-distended, soft, non-tenderSkin: dry, normal temperature, no rash, INCISIONS: CDI, sutures x 2.Musculoskeletal - general: Musculoskeletal - general: swelling (BLE-lymphedema), normal tone, calves NT,no cordsNeuro/CAPTAIN FIRE PREVENTION BUREAU: alert, 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, CNII-XII intact, no sensory deficits, MMT BUE 4/5, hips 3-/5 distal 4/5. ResultsFindings/Data:Laboratory Tests: 01/13 01/12 01/12 01/12 0446 1957 [...] 01/11 01/11 01/11 0530 0623 1114 1657 1914 Chemistry POC Glucose (70 - 110 MG/DL) [...] % (Auto) (14.0 - 32.0 %) 5.5 [place]itt % (Auto) (4.8 - 9.0 %) 8.5 Eos % (Auto) (0.3 - 3.7 %) 2.5 Baso % (Auto) (0.0 - 2.0 %) 0.5 Neut # (Auto) (2.0 - 7.6 x10 3/uL) 4.99 Lymph # (Auto) (1.0 - 3.8 x10 3/uL) 0.33 [place] # (Auto) (0.1 - 0.8 x10 3/uL) 0.51 Eos # (Auto) (0.0 - 0.2 x10 3/uL) 0.15 Baso # (Auto) (0.0 - 0.2 x10 3/uL) 0.03 Abs Immat Gran (auto) (0.00 - 0.03 x10 3/uL) 0.01 Add Manual Diff NO Immature Gran % (0.0 - 2.0 %) 0.2 Nucleated RBC % (0 - 0 %) 0.0 Nucleated RBCs # (Man) (0.0 - 0.1 x10 3/uL) 0.00 Poikilocytosis 1+ Anisocytosis 2+ Macrocytosis 1+ Schistocytes 1+ 01/12 01/12 01/12 01/12 01/13 0549 1041 1544 1957 0446 Chemistry POC Glucose (70 - 110 MG/DL) 95 164 233 159 143 Radiology data:Recent Impressions:RADIOLOGY - XR CHEST 1 V 01/09 0920 Report Impression - Status: SIGNED Entered: 01/09/2022 1049 IMPRESSION: 1. Improved aeration bilateral. Residual interstitial and perihilar opacities compatible with edema. Inflammation in the differential. 2. Residual subsegmental atelectasis. 3. Residual small volume pleural effusions. Impression By: Catherine Carlisle M.D. Diagnosis, Assessment PlanProblem List/A P: 1. Critical illness myopathy 2. CAD (coronary artery disease) 3. Severe mitral regurgitation 4. Constrictive pericarditis 5. S/P CABG x 1 6. S/P MVR (mitral valve replacement) 7. Immunosuppressed status 8. RONA on CPAP 9. Chronic a-fib 10. Crohn disease 11. Morbid obesity 12. Respiratory failure with hypoxia 13. Acute blood loss anemia 14. Generalized weakness 15. Impaired functional mobility, balance, gait, and endurance Free Text A P:Assessment:Critical illness myopathyConstrictive pericarditisSevere mitral hjrrkcwwtcyruFMM07/7: Status post CABG x1 (ROBERTS to LAD), ILAp, nynpdtobjuripo37/7: S/p MVR1: Echo-EF 55-59%, mild to moderately dilated right ventricle, LA and RA dilatation, normally functioning MV bioprosthesisChronic AF, s/p PPM/ablation-rate controlled-pacedVolume overload-BLE edemaHistory of lymphedemaGeneralized weaknessDeconditioningAcute blood loss anemiaHypertensionMorbid obesityHLD Crohn's diseaseSmokerHypoxic respiratory failureHypokalemia/hypomagnesemia secondary to diureticsAKI resolvedSignificant impaired ADLs, mobility, gait, balance and endurance Plan:-Comprehensive inpatient rehabilitation with physical, occupational and speech therapy 3 hours a day for 5 to 6 days per week-05/10 rehabilitation physician supervision-05/10 rehabilitation nursing care-Case management for safe discharge planning-Rehab MD to monitor comorbidities and functional progress.-Decubitus prevention-protective hydrating lotion-turn every 2 iezgg-xhbgnoy-Kedtj program-MiraLAX and Senokot-Nutrition, monitor the patient's p.o. intake, check albumin 3.5 and prealbumin,dietary consult, protein supplements.-Strict fall and safety precaution-DVT prophylaxis-SCDs/antiembolism stockings-GI turndokpdwa-Xygznroh-Hlegewhe control-continue insulin-blood sugars good-as per ziepncjt-NBB-ivdlpanm-nephrology following-Respiratory insufficiency-wean O2-postop pulmonary protocol, encourage I-S, deep cough and breathing exercises, slowly improving-CAD s/p CABG, MVR, and ILAA-on DAPT post-op care per CTS-Acute/chr AF s/p PPM/ablation. Rate controlled, paced rhythm-had ILAA during bypass, no need for AC-as per cardiology-Volume vfhfzazc-avejmsjx-gb diuretics, strict I's and O's Daily-HTN. BP stable-on cscddxdjbl-XQN-Zi statins.-Crohn's disease. Per IM.-Early mobilization-OOB to chair-Work on bed mobility, transfer training, ADLs, pre-gait and gait exercises as tolerable. -Increase endurance and strength-Pain ophbhhueod-Zcrizplrowv-ztdhnwnmbm, CVS, medicine, nephrology-Labs reviewed-WBC normal, hemoglobin improved 9.8 improved, platelets normal, potassium 3.5, creatinine 1.0, magnesium 1.77, BNP 232, 180 -replete potassium and magnesium as ewesfh76/28: SOB-chest u-mcd-zpthtzfx aeration bilaterally. Residual interstitial andperihilar opacities. Subsegmental atelectasis. Residual small volume pleural effusions.-Continue CPAP at night-Encourage I-S and ambulation-BLE edema-ANA PAULA hose and elevation, exercise, diuretics-Diuresis as per junnijikmp-Xmaxso-wmssuuwf ferrous sulfate, B12, vitamin C monitor H H-Monitor hdeagzyxe-Rfbhcx-Zjscmr-Continue current medications-Sternal incision intact and healing. Continue sternal precautions for 6 weeks-Monitor complains of being tired and sleepy-Therapeutic rest break given in between due to fair activity tolerance and patient reported Omaira RPE 4 (1-10) somewhat Hard SOB during activity. -Patient still with SOB and desaturates with exercise-we will have Dr. Ramos evaluate patient.-Check labs in a.m.-Advance therapies as tolerated Progress: Transfer from toilet<>W/C with SBA. Gait training 75 ft, 50 ft using RW with SBA, occasional cues on pacing and facilitation of symmetrical stance. W/C Mobility 150 ft using BLE for propulsion withSBA. Seated AROME on BLE x 20 reps x 3 sets, AP. Sit<>stand x 5 reps with SBA. PM RPlease see team note.Plan and goals discussed with the patient. I agree with the teams findingELOS: [01/21]DZ-gqbo-vdfqy with daughter-HH versus outpatient cardiac rehabilitationDME-RW, wheelchair TT 36 min>50% with discussing with patient about team conference, discharge plan, SOB, therapies, potassium repletion, diuretics, rehab plan of care, goals, needs, and medical issues, examination. MAR and EMR reviewed. All Questions answered.Orders: Procedure Date/time Status MAGNESIUM 01/15 400 Active BASIC METABOLIC PANEL 01/14 040 Active NEB TREATMENT SUBSQ 01/13 0551 Active OXYGEN PER HOUR 01/13 200 Complete CPAP/BIPAP ADULT/CHILD 01/13 200 Complete NEB TREATMENT SUBSQ 01/12 2034 Active Consultants: cardiology, cardiovascular surgery, hospitalist, nephrologyPlan discussed with: patient, nurse, interdisc care teamRehab attestation:Face to face exam completed. Treatment plan discussed with patient. Meets continued stay criteria. Agree with interdisciplinary treatment plan. at 1204 RPT #:[id number] OF REPORTPRProgress iqaf7350-23-07X93:04:00G.[id number] e for patient upmlYEDYBGQDRDHMWW1374-01-11V30:07:17 HC ACL 2022-01-12 16:22:00 [id number]/mYBdv qtrWDnjwshjL Fl88546tfuT21es6gQHkaRBB0951-49-94A93:22:00 [facility] CenterNe[facility] Progress NoteREPORT#:[id number] REPORT STATUS: SignedDATE:01/12/22 TIME: 162 PATIENT: KIAH GILES UNIT #: [id number]#: [id number] [address] AGE: 76 SEX: F ATTEND: Jesus Landry [facility] AUTHOR: Suki Fuchs MD * ALL edits or amendments must be made on the electronic/computer document * SubjectiveChief complaint:CAD, S/P CABGHPI:This is a 76-year-old female who has past medical history of hypertension, diabetes, coronary artery disease, atrial fibrillation who presented with worsening shortness of breath and on further work-up was 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 She was withnormal kidney function prior to surgery and after her surgery she began to develop oliguria. Her procedure was done without any complications but after her surgery she did require pressor support for hypotension and she was intubated for respiratory acidosis and hypoxia and she was treated with vancomycin for infection treatment. She recovered kidney function and has been on diuretics for hypervolemia which has also improved significantly. 01/12Shoskar was seen in rehab today and was doing well, nursing staff reporting eating well. Objective GeneralVS/I O:Vital Signs: Date Time Temp Pulse Resp B/P B/P Pulse O2 O2 Flow FiO2 Mean Ox Delivery Rate 01/13 0732 36.5 75 17 133/76 95.4 99 Nasal 4 cannula 01/13 315 95 Nasal 4 cannula 01/128 36.5 82 20 119/72 0.0 96 01/12 2255 70 96 40 01/122 95 Nasal 4 cannula 01/13 2000 Nasal 4 cannula 01/12 1913 36.7 [...] scale Measurement Method PATIENT WEIGHT: Weight (lb): 253Weight (oz): 11.72Weight (kg): 115.091 Physical ExamGeneral appearance: sleeping comfortablyHead/eyes: atraumatic, EOMIENT: moist mucous membranes, normal noseNeck: no JVD, no lymphadenopathyCardiovascular: normal heart sounds, regular rate and rhythmRespiratory: aerating well, clear to auscultationAbdomen: non-tender, softGenitourinary: no bladder distention, no flank painExtremities: pitting edema, no gangrene, no swelling Diagnosis, Assessment PlanFree Text A P:This is a 76-year-old female known to have hypertension, diabetes, atrial fibrillation, s/p permanent pacemaker and history of ablation presenting with shortness of breath and 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 Nephrology is following for: 1. Acute kidney injury: Most likely it is prerenal (cardiorenal), she has been hypotensive postoperatively with requirement for pressor support and inotropic support. Resolved with stable hemodynamics 2. Hypervolemia:Improved, on low dose lasix. 3. Hypokalemia: Plan to replace nd monitor closely. 4. Metabolic alkalosis secondary to diuretics. Plan to monitoe and give diamox if worsens. 01/09 1. Acute kidney injury: Most likely it is prerenal (cardiorenal), she has been hypotensive postoperatively with requirement for pressor support and inotropic support. Resolved with stable hemodynamics 2. Hypervolemia:Improved, on low dose lasix. 3. Hypokalemia: Plan to replace and monitor closely. 4. Metabolic alkalosis secondary to diuretics. Plan to monitor and continue diamox. 01/10 1. Acute kidney injury: Most likely it is prerenal (cardiorenal), she has been hypotensive postoperatively with requirement for pressor support and inotropic support. Resolved with stable hemodynamics 2. Hypervolemia:Improved, on low dose lasix.Dose increased to 40 Q12H today as she was looking volume overloaded. 3. Hypokalemia: Plan to replace and monitor closely. 4. Metabolic alkalosis secondary to diuretics. Plan to monitor and continue diamox. 01/12 1. Acute kidney injury: Most likely it is prerenal (cardiorenal), she has been hypotensive postoperatively with requirement for pressor support and inotropic support. Resolved with stable hemodynamics. 2. Hypervolemia:Improved, on low dose lasix.Dose increased to 40 Q12H as she was looking volume overloaded. 3. Hypokalemia: Plan to replace and monitor closely. 4. Metabolic alkalosis secondary to diuretics. Plan to monitor and continue diamox. Consultants: cardiology, cardiovascular surgery, hospitalist, nephrology at 0832 RPT #:[id number] OF REPORTPRProgress yxhr1780-75-12J61:22:00G.[id number] e for patient zuqhDWWOATCWZWWJBO0156-94-54H51:32:41 HC ACL 2022-01-12 14:16:00 [id number]+EGpxQXmjZu4zoOGA p85d1Cg8yOMD LVWhGJNhqi/Hd+ealv49Hmq+2355-42-50V37:16:00 [facility] CenterRehab Team ConferenceREPORT#:[id number] REPORT STATUS: SignedDATE:01/12/22 TIME: 1416 PATIENT: KIAH GILES UNIT #: [id number]#: [id number] [address] AGE: 76 SEX: F ATTEND: Jesus Landry AUTHOR: Jesus Landry MD * ALL edits or amendments must be made on the electronic/computer document * Rehabilitation Team Conference Weekly Team ConferenceTeam conf information:Date of conference: 01/12/22Conference type: InterimConference scribe: Luda Correa [employer] INTERDISCIPLINARY TEAM MEETING PARTICIPANTS: TITLE NAME MD LAURA Aguilar, LAURA PT Moshe Benton, PT OT Gabriele Delgado OT CM/LANDRY Valdez, RE[facility]NALDO [facility] REYNALDO Mcdonnell Staff (8) NO ATTENDEE Staff (9) NO ATTENDEE OTHER NAME CREDENTIALS 1 STEFANO PERRY DIETITIAN 2 FUNCTIONAL CHANGE: TYPE ADMISSION TOTAL INTERIM TOTAL CHANGE Self care 19 26 7 Transfer 23 31 8 Mobility 11 17 6 Wheelchair distance: Mobility description: BOWEL AND BLADDER STATUS: Bowel continence admission rating: Bladder continence admission rating: Always continentBowel and bladder team conference update: CONTINENT X 2. LBM 10-30 INTERDISCIPLINARY TEAM UPDATES: DALILA team conference update: A/O X 4, ON 3 LITERS OXYGEN NC, BIPAP AT NIGHT WEARING ON AND OFF, CONTINENT X 2, PT VOIDING FREQUENTLY AT NIGHT CAUSING HER DIFFICULTY TO SLEEP, NO REPORT OF PAIN OR DISCOMFORT WITH VOIDING, PT IS ON PO LASIX BID, MIN ASSIST WITH TRANFERES STERNAL PRECAUTIONS, ACHS(267,287,140,71) PITTING +2 EDEMA IN BILATERAL LEGS, GENERALIZED SWELLING. MINOR PAIN TO CHEST INCISION WITH COUGHING, MIDLINE INCISION SAS PROGRAMMER, ABD. PUNTURE SITES WITH SUTURES, EXCORIATION TO GROIN AREA. HGB:8.7, HCT:28.4, K:3.3. VITAL SIGNS WNL. PT team conference update: Pt sit to stand with SBA/CG. Ambualtes with RW with SBA/CG for 55 feet OT team conference update: PATIENT IS MAKING PROGRESS WITH ADL FUNCTIONS. FUNCTIONAL TRANSFERS - TOILET/SHOWER - CGA SELF FEEDING - IND ORAL HYGIENE - INDUBD - CGA LB DRESSING - MODA USING AD TOILETING - MODA TO WIPE (RECOMMENDED TOILETING AIDE) BATHING - MODA FOOTWEAR - TOTALA (UNABLE TO USE AD SECONDARY TO B LE SWELLING) BARRIERS - POOR ACTIVITY TOLERANCE RECOMMENDED GRAB BARS FOR BATHROOM BUT PATIENT HAS NO SPACE FOR GRAB BY HER TOILET PATIENT WOULD BENEFIT FROM BARIATRIC COMMODE FOR HOME. PATIENT WOULD BENEFIT FROM HH OT AND CAREGIVER ASSISTANCEST team conference update: CM or TIFFANY team conference update: PT LIVES AT HOME WITH DAUGHTER. HOME OXYGEN. D/C PLAN PENDING FURTHER ASSESSMENT. Other discipline update 1: PO INTAKE: 50-80% OF A DIABETIC DIET WITH HANNAH Glynn discipline update 2: Other discipline update 3: REHAB DC GOALS: Patient's identified discharge goal: PT: Pt ABLE TO WALK Eating discharge goal: Independent (6) Shower/bathe self discharge goal: Independent (6) Upper body dressing discharge goal: Independent (6) Lower body dressing discharge goal: Independent (6) Chair/bed to chair transfer discharge goal: Independent (6) Transfer on/off toilet or commode discharge goal: Independent (6) Walking 50 feet with two turns discharge goal: Independent (6) Walking 150 feet discharge goal: Independent (6) Four steps discharge goal: Partial/moderate asst (3) Twelve steps discharge goal: Not applicable [place] 150 feet discharge goal: Supervise/touch asst (4) Goal 1 - Bowel function: PT WILL MAINTAIN NORMAL BOWEL FUNCTION IN REHAB STAYGoal 2 - Bladder function: PT WILL MAINTAIN NORMAL BLADDER FUNCITON IN REHAB STAYNursing goal 3: PT WILL MAINTAIN SKIN INTEGRITYNursing goal 4: PT WILL REMAIN FREE OF FALLS AND INJURIES THROUGHOUT REHAB STAYNursing goal 5: DISCHARGE PLANNING: Barriers to discharge: DEFICITS W ADLS , IMPAIRED ENDURANCE, STERNAL PREACVUTIONSStrategies for D/C barriers: ADL TRAINING, ENDURANCE TRAINING, COMPENSATORY STRATEGIESEstimated length of stay in days: 14Anticipated discharge date: 01/21/22Discharge date adjustment comment: Identified financial and/or community resource needs: Family/Caregiver training days: PT AND FAMILY WILL BE EDUCATED ON THE USE OF THEGAIT BELT TO LOWER THE PT TO THE FLOOR IN THE EVENT OF LOSS OF BALANCE TO PREVENT FALL OR INJURY. FAMILY TRAINING: TO BE SCHEUDLED BY THERAPYIndependence day (DATE): 01/20/22Expected discharge destination: Home VS CARDIAC REHABAnticipated services upon discharge: Occupational therapy, Physical therapy, Home health, NursingAnticipated discharge equipment: RW, -20" Impairment group: neurologic conditions NOTE Document ONLY ONE Impairment Group Neurologic conditions: neuromuscular disordersEtiologic diagnosis:Critical illness myopathyReview of comorbidities:CAD, MITRAL VALVE REPLACEMENT 12/23, CORONARY ARTERY BYPASS, Pericardiectomy., OBESITY, RONA, HTN, HLD, DIABETES, CROHN'S DISEASE, CHRONIC A FIB, PACEMAKER, ANEMIA, HYPOXIC RESPIRATORY FAILURE, on BiPap MD Review/RecommendationsAttestation:This interdisciplinary team conference was led by me and I concur with all decisions made during the team conference and revisions to the individualized overall plan of care. IRF cont stay criteriaSee my note at 1417 [facility] #:[id number] OF REPORTCLClinical plhy1256-97-00U04:16:00G.[id number] e for patient ryooLWPLIXCHXATMOT0712-64-77C63:17:56 HC ACL 2022-01-12 10:50:00 [id number]+IgjMTiTGZ0wK4voAUNm18M3 QO0+eDRoTbRw 0IoChLt8dV1FinIxNcqoNBq48980-24-00X30:50:[address] [facility] ([facility]ENTERHospitalist Progress NoteREPORT#:[id number] REPORT STATUS: SignedDATE:01/12/22 TIME: 1050 PATIENT: KIAH GILES UNIT #: [id number]#: [id number] [address] AGE: 76 SEX: F ATTEND: [facility] AUTHOR: Meryl Rosa MD * ALL edits or amendments must be made on the electronic/computer document * SubjectiveChief complaint:she is tire and not sleep well . she is on bipap at night Review of SystemsConstitutional:Reports: fatigue, generalized weakness. Denies: fever, lethargy. Respiratory:Denies: SOB, wheezing. Cardiovascular:Denies: chest pain, DOUGLASS (dyspnea on exertion), edema, orthopnea. GI:Denies: abdominal pain, nausea, vomiting. Neuro:Denies: dizziness, headache. Objective GeneralVS/I O:Vital Signs: Date Time Temp Pulse Resp B/P B/P Pulse O2 O2 Flow FiO2 Mean Ox Delivery Rate 01/12 1003 99 Nasal 4 cannula 01/12 0707 36.5 70 17 108/62 0.0 100 Nasal cannula 01/112 69 18 110/50 0.0 100 BiPAP mask [...] scale Measurement Method PATIENT WEIGHT: Weight (lb): 248Weight (oz): 10.9Weight (kg): 112.800 Medications:Active Meds + DC'd Last 24 HrsMagnesium Chloride (MAG 64MG) 64 MG BID PO Furosemide (LASIX) 40 MG BID 9A 5P PO Lisinopril (ZESTRIL) 2.5 MG DAILY PO Ascorbic Acid (ASCORBIC ACID) 500 MG BID PO Bisacodyl (DULCOLAX) 10 MG DAILY PRN PRN RECTAL Potassium Chloride (POTASSIUM CHLORIDE 20MEQ TAB.ER) 40 MEQ DAILY PRN PRN PO Acetazolamide (DIAMOX) 250 MG DAILY PO Aspirin (ASPIRIN) 81 MG DAILY PO Clopidogrel Bisulfate (Plavix) 75 MG DAILY PO Cyanocobalamin (Vitamin B-12 500 mcg tab) 500 MCG DAILY PO Ferrous Sulfate (FERROUS SULFATE) 325 MG DAILY PO Insulin Glargine (Lantus/Semglee) 30 UNIT DAILY SUBQ Polyethylene Glycol (MIRALAX) 17 GM DAILY PO Sodium Chloride (SODIUM CHLORIDE) 10 ML BID IV Insulin Human Lispro (HUMALOG) 0 AC HS SUBQ Pantoprazole (PROTONIX) 40 MG DAILY@0600 PO Acetylcysteine (MUCOMYST FOR RT) 200 MG RTQ6H NEB Albuterol/Ipratropium (DUONEB) 3 ML RTQ6H NEB Glucagon (GLUCAGON) 1 MG ASDIR PRN IM Acetaminophen (TYLENOL) 650 MG Q4H PRN PRN PO Bisacodyl (DULCOLAX) 5 MG DAILY PRN PRN PO Dextrose/Water (DEXTROSE 10% IN WATER) 250 ML ASDIR PRN IV (CKD) Sodium Chloride (SODIUM CHLORIDE) 4 ML RTBID NEB Amiodarone HCl (CORDARONE) 200 MG Q12HR PO Atorvastatin Calcium (LIPITOR) 40 MG 2100 PO Docusate Sodium (COLACE) 100 MG BID PO Insulin Glargine (Lantus/Semglee) 20 UNIT BEDTIME SUBQ Melatonin (Melatonin) 3 MG BEDTIME PO Metoprolol Tartrate (LOPRESSOR) 25 MG Q12HR PO Ondansetron HCl (ZOFRAN ODT) 4 MG TID PRN PRN PO Sennosides (Senna Lax 8.6 MG TABLET) 17.2 MG BEDTIME PO Physical ExamGeneral appearance: alert, awake, oriented, no acute distressHead/Eyes: atraumatic, normal conjunctiva/sclera, normal eyelids/periorb.Neck: full range of motion, non-tenderCardiovascular: normal heart sounds, regular rate rhythmRespiratory: dyspneic, on oxygenAbdomen: non-tender, normal bowel sounds, soft, no distentionExtremities: edema, moves allNeuro/CAPTAIN FIRE PREVENTION BUREAU: alert, 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, CNII-XII intact, normal speech, no motor deficits, no sensory deficitsSkin: dry, intact ResultsFindings/Data:Laboratory Tests 01/12 01/12 01/12 01/12 01/11 0549 0547 0419 3724 4659 Chemistry Sodium (134 - 147 mEq/L) 139 [...] (Auto) (14.0 - 32.0 %) 5.5 L [place] % (Auto) (4.8 - 9.0 %) 8.5 Eos % (Auto) (0.3 - 3.7 %) 2.5 Baso % (Auto) (0.0 - 2.0 %) 0.5 Neut # (Auto) (2.0 - 7.6 x10 3/uL) 4.99 Lymph # (Auto) (1.0 - 3.8 x10 3/uL) 0.33 L [place] # (Auto) (0.1 - 0.8 x10 3/uL) 0.51 Eos # (Auto) (0.0 - 0.2 x10 3/uL) 0.15 Baso # (Auto) (0.0 - 0.2 x10 3/uL) 0.03 Abs Immat Gran (auto) (0.00 - 0.03 x10 3/uL) 0.01 Add Manual Diff NO Immature Gran % (0.0 - 2.0 %) 0.2 Nucleated RBC % (0 - 0 %) 0.0 Nucleated RBCs # (Man) (0.0 - 0.1 x10 3/uL) 0.00 Poikilocytosis 1+ Anisocytosis 2+ Macrocytosis 1+ Schistocytes 1+ Diagnosis, Assessment PlanConsultants: cardiology, cardiovascular surgery, hospitalist, nephrology Free Text DxA P NotesFree text DxA P notes:general weakness CAD - post CABGCHFHTNDMHLDafib OSAmorbid obesity CAD -- cardiology consult CV surgeon [...] 01/10 Continue bowel regimen, adjust as needed if no results. Replace K.01/11 +BM. Replace K+, discussed with RN to give PRN K on - she complaint of tire - not sleep well last night -- continue bipap at night -- continue PT/OT at 1053 RPT #:[id number] OF REPORTPRProgress syfu1985-44-97L98:50:00G.[id number] e for patient rjriEIGKSDVRKZCVYZ4080-11-65U66:56:35 [facility] 2022-01-12 09:40:00 [id number]m7OF FTOR0RpTeqIE fFVwPEumJqJzgQWjPvcErF2Y1663-45-77I12:40:[address] [facility] ([facility])Cardiology Progress NoteREPORT#:[id number] REPORT STATUS: SignedDATE:01/12/22 TIME: 0940 PATIENT: KIAH GILES UNIT #: [id number]#: [id number] [address] AGE: 76 SEX: F ATTEND: Jesus Landry [facility] AUTHOR: Isabella Clemens AGACNP * ALL edits or amendments must be made on the electronic/computer document * SubjectiveComments:No new complaint. States she feels tired and sleepy Objective GeneralVS/I O:24 hour I O ending at 0700: 01/12 [...] Flow FiO2 Mean Ox Delivery Rate 01/12 07 36.5 70 17 108/62 0.0 100 Nasal cannula 01/11 2342 69 18 110/50 0.0 100 BiPAP mask 01/11 2107 76 99 40 01/11 2100 Nasal 3 cannula 01/11 205 93 Room air 21 01/11 190 36.7 71 18 117/61 79.8 95 Nasal 2 cannula 01/11 1529 36.4 73 18 137/66 89.3 97 01/11 1327 Nasal 3 cannula PATIENT WEIGHT: Weight (lb): 248Weight (oz): 10.9Weight (kg): 112.800 Medications:Active Meds + DC'd Last 24 HrsMagnesium Chloride (MAG 64MG) 64 MG BID PO (UNV) Furosemide (LASIX) 40 MG BID 9A 5P PO Lisinopril (ZESTRIL) 2.5 MG DAILY PO Ascorbic Acid (ASCORBIC ACID) 500 MG BID PO Bisacodyl (DULCOLAX) 10 MG DAILY PRN PRN RECTAL Potassium Chloride (POTASSIUM CHLORIDE 20MEQ TAB.ER) 40 MEQ DAILY PRN PRN PO Acetazolamide (DIAMOX) 250 MG DAILY PO Aspirin (ASPIRIN) 81 MG DAILY PO Clopidogrel Bisulfate (Plavix) 75 MG DAILY PO Cyanocobalamin (Vitamin B-12 500 mcg tab) 500 MCG DAILY PO Ferrous Sulfate (FERROUS SULFATE) 325 MG DAILY PO Insulin Glargine (Lantus/Semglee) 30 UNIT DAILY SUBQ Polyethylene Glycol (MIRALAX) 17 GM DAILY PO Sodium Chloride (SODIUM CHLORIDE) 10 ML BID IV Insulin Human Lispro (HUMALOG) 0 AC HS SUBQ Pantoprazole (PROTONIX) 40 MG DAILY@0600 PO Acetylcysteine (MUCOMYST FOR RT) 200 MG RTQ6H NEB Albuterol/Ipratropium (DUONEB) 3 ML RTQ6H NEB Glucagon (GLUCAGON) 1 MG ASDIR PRN IM Acetaminophen (TYLENOL) 650 MG Q4H PRN PRN PO Bisacodyl (DULCOLAX) 5 MG DAILY PRN PRN PO Dextrose/Water (DEXTROSE 10% IN WATER) 250 ML ASDIR PRN IV (CKD) Sodium Chloride (SODIUM CHLORIDE) 4 ML RTBID NEB Amiodarone HCl (CORDARONE) 200 MG Q12HR PO Atorvastatin Calcium (LIPITOR) 40 MG 2100 PO Docusate Sodium (COLACE) 100 MG BID PO Insulin Glargine (Lantus/Semglee) 20 UNIT BEDTIME SUBQ Melatonin (Melatonin) 3 MG BEDTIME PO Metoprolol Tartrate (LOPRESSOR) 25 MG Q12HR PO Ondansetron HCl (ZOFRAN ODT) 4 MG TID PRN PRN PO Sennosides (Senna Lax 8.6 MG TABLET) 17.2 MG BEDTIME PO Pacemaker: permanent Physical ExamGeneral appearance: obese, no acute distress, pleasant, conversationalNeck: no JVDCardiovascular: CV assessment: regular rate and rhythmRespiratory: decreased breath sounds, no distressAbdomen: soft, non-tender, normal bowel sounds, no distentionGenitourinary: no flank pain, no urinary catheterUpper extremity: UE assessment: no edemaLower extremity: LE assessment: edema (trace)Musculoskeletal: normal inspectionNeuro/[employer]: alert, 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, normal speechSkin: poor skin turgorPsychiatry: normal affect, normal mood ResultsFindings/Data:Laboratory Tests 01/12 01/12 01/12 01/12 01/11 0549 0547 4816 9581 8634 Chemistry Sodium (134 - 147 mEq/L) 139 [...] (Auto) (14.0 - 32.0 %) 5.5 L [place] % (Auto) (4.8 - 9.0 %) 8.5 Eos % (Auto) (0.3 - 3.7 %) 2.5 Baso % (Auto) (0.0 - 2.0 %) 0.5 Neut # (Auto) (2.0 - 7.6 x10 3/uL) 4.99 Lymph # (Auto) (1.0 - 3.8 x10 3/uL) 0.33 L [place] # (Auto) (0.1 - 0.8 x10 3/uL) 0.51 Eos # (Auto) (0.0 - 0.2 x10 3/uL) 0.15 Baso # (Auto) (0.0 - 0.2 x10 3/uL) 0.03 Abs Immat Gran (auto) (0.00 - 0.03 x10 3/uL) 0.01 Add Manual Diff NO Immature Gran % (0.0 - 2.0 %) 0.2 Nucleated RBC % (0 - 0 %) 0.0 Nucleated RBCs # (Man) (0.0 - 0.1 x10 3/uL) 0.00 Laboratory Tests 01/12 01/12 0415 0415 Chemistry Magnesium (1.80 - 2.40 mg/dL) 1.77 L B-Natriuretic Peptide (0 - 100 PG/ML) 180.0 H Diagnosis, Assessment PlanProblem List/A P: 1. CAD (coronary artery disease) 2. Severe mitral regurgitation 3. Chronic a-fib 4. S/P CABG x 1 5. S/P MVR (mitral valve replacement) Plan discussed with: patient Free Text DxA P NotesFree Text DxA P Notes:Ms Giles is a 76 y/o female with PMHx of CAD, HLD, T2DM, RONA (CPAP at home), smoker, Crohn's disease, AF s/p ablation s/p PPM, and chronic lymphedema. She isrecovering from CABG and MVR. She is transferred to [facility] for inpatient rehabilitation. Cardiolgy is consulted for continuity of cardiac-related care. 1. CAD s/p CABG, MVR, and ILAA. On Plavix, aspirin, beta-delma, statin 2. Chronic AF s/p PPM/ablation. had ILAA during bypass no need for ACkeep K >4 and Mag above 2taper amiodarone prior to discharge 3. Chronic Diastolic CHF - euvolemicon PO Lasix 4. Hypertension - BP on the softer side todayBP range 108-137/50-66 mmHgcontinue metoprolol tartrate 25 mg BIDlow dose lisinopril added by nephrology 5. HyperlipidemiaContinue statins. 6. MARCELLO - resolvedper Nephrology continue Rehab at 1138 at 1724 RPT #:[id number] OF REPORTPRProgress tjjf1858-02-57R58:40:00G.[id number] e for patient pycuRUAUOIXVGULTGJ4280-07-29U95:39:13 HC ACL 2022-01-12 09:23:00 [id number] I8ZHTfO6SN2W oYBH1vB2lQF9yF+inIBj+Nak2321-59-78U56:23:[address] [facility] ([facility])Rehab Progress NoteREPORT#:[id number] REPORT STATUS: SignedDATE:01/12/22 TIME: 922 PATIENT: KIAH GILES UNIT #: [id number]#: [id number] [address] AGE: 76 SEX: F ATTEND: Jesus Landry [facility] AUTHOR: Jesus Landry MD * ALL edits or amendments must be made on the electronic/computer document * SubjectiveChief complaint:Rehab follow-upStill complains of SOBUsing CPAP at nightPatient on 3-4 L, sats 100%NAD, eating 50-80%Reports BLE edemaPositive BMDenies GOLD/N/V/D/CP14 systems reviewed and neg. except that above. Objective GeneralVS:Vital Signs: Date Time Temp Pulse Resp B/P B/P Pulse O2 O2 Flow FiO2 Mean Ox Delivery Rate 01/12 707 97.7 70 17 108/62 0.0 100 Nasal cannula 01/11 2342 69 18 110/50 0.0 100 BiPAP mask 01/11 2107 76 99 40 01/11 2100 Nasal 3 cannula 01/11 2059 93 Room air 21 01/11 190 98.1 71 18 117/61 79.8 95 Nasal 2 cannula 01/11 1529 97.5 73 18 137/66 89.3 97 01/11 1327 Nasal 3 cannula PATIENT WEIGHT: Weight (lb): 248Weight (oz): 10.9Weight (kg): 112.800 Medications:Active Meds + DC'd Last 24 HrsFurosemide (LASIX) 40 MG BID 9A 5P PO Lisinopril (ZESTRIL) 2.5 MG DAILY PO Ascorbic Acid (ASCORBIC ACID) 500 MG BID PO Bisacodyl (DULCOLAX) 10 MG DAILY PRN PRN RECTAL Potassium Chloride (POTASSIUM CHLORIDE 20MEQ TAB.ER) 40 MEQ DAILY PRN PRN PO Acetazolamide (DIAMOX) 250 MG DAILY PO Aspirin (ASPIRIN) 81 MG DAILY PO Clopidogrel Bisulfate (Plavix) 75 MG DAILY PO Cyanocobalamin (Vitamin B-12 500 mcg tab) 500 MCG DAILY PO Ferrous Sulfate (FERROUS SULFATE) 325 MG DAILY PO Insulin Glargine (Lantus/Semglee) 30 UNIT DAILY SUBQ Polyethylene Glycol (MIRALAX) 17 GM DAILY PO Sodium Chloride (SODIUM CHLORIDE) 10 ML BID IV Insulin Human Lispro (HUMALOG) 0 AC HS SUBQ Pantoprazole (PROTONIX) 40 MG DAILY@0600 PO Acetylcysteine (MUCOMYST FOR RT) 200 MG RTQ6H NEB Albuterol/Ipratropium (DUONEB) 3 ML RTQ6H NEB Glucagon (GLUCAGON) 1 MG ASDIR PRN IM Acetaminophen (TYLENOL) 650 MG Q4H PRN PRN PO Bisacodyl (DULCOLAX) 5 MG DAILY PRN PRN PO Dextrose/Water (DEXTROSE 10% IN WATER) 250 ML ASDIR PRN IV (CKD) Sodium Chloride (SODIUM CHLORIDE) 4 ML RTBID NEB Amiodarone HCl (CORDARONE) 200 MG Q12HR PO Atorvastatin Calcium (LIPITOR) 40 MG 2100 PO Docusate Sodium (COLACE) 100 MG BID PO Insulin Glargine (Lantus/Semglee) 20 UNIT BEDTIME SUBQ Melatonin (Melatonin) 3 MG BEDTIME PO Metoprolol Tartrate (LOPRESSOR) 25 MG Q12HR PO Ondansetron HCl (ZOFRAN ODT) 4 MG TID PRN PRN PO Sennosides (Senna Lax 8.6 MG TABLET) 17.2 MG BEDTIME PO Functional ProgressFunctional progress: - - OT INTERIM CARE - - Eating: Yes Oral hygiene: Yes Shower/bathing: Yes Dressing upperbody: Yes Dressing lowerbody: Yes Footwear: Yes - - OT INTERIM EATING - - Patient eats by mouth: Yes Eats by mouth independently: Yes Interim eating CARE score: Independent (6) - - OT INTERIM ORAL HYGIENE - - Patient performed oral hygiene: Yes Performed oral hygiene independently: Yes Interim oral hygiene CARE score: Independent (6) - - OT INTERIM SHOWER/BATHING - - Patient bathed or showered: Yes Bathed or showered self independently: No Required setup or cleanup ONLY to bathe or showerself: No Required spv/verbal cues/CGA ONLY to bathe or showerself: No Completed at least 50% effort to bathe or showerself: Yes Interim bathing CARE score: Partial/moderate (3) Bathing CARE comment: MODA TO WASH LE, BACK, BUTTOCKS - - OT INTERIM DRESSING UPPER BODY - - Patient dressed/undressed upperbody: Yes Dressed/undressed upper body independently: No Required setup or cleanup ONLY to dress/undress upperbody: No Required spv/verbal cues/CGA ONLY to dress/undress upperbody: Yes Interim upper body dressing CARE score: Supervision/touch (4) - - OT INTERIM DRESSING LOWER BODY - - Patient dressed/undressed lowerbody: Yes Dressed/undressed lower body independently: No Required setup or cleanup ONLY to dress/undress lowerbody: No Required spv/verbal cues/CGA ONLY to dress/undress lowerbody: No Completed lower body dressing/undressing: At least 50% of effort Interim lower body dressing CARE score: Partial/moderate (3) Dressed/undressed lower body CARE comment: MODA TO THREAD LEGS USING THE SPAR FINISHER - - OT INTERIM FOOTWEAR - - Patient put on/removed footwear: Yes Put on/removed footwear independently: No Required setup or cleanup ONLY to put on/remove footwear: No Required spv/verbal cues/CGA ONLY to put on/remove footwear: No Put on/removed footwear: Pt does no effort Interim footwear CARE score: Dependent (1) Put on/removed footwear CARE comment: UNABLE TO USE AD SECONADRY TO B LE EDEMA Physical ExamGeneral appearance: alert, awake, no acute distressPsych: alert, normal affect, oriented x 3HEENT: anicteric, mucosal membranes moist, pupils reactive to light, sclera clearNeck: non-tender, supple, no JVDCardiovascular: regular rate rhythm, S1/S2, no murmurRespiratory: diminished breath sounds, on oxygen, clear bilaterallyAbdomen: obese, bowel sounds present, non-distended, soft, non-tenderSkin: dry, normal temperature, no rash, INCISIONS: CDI, sutures x 2.Musculoskeletal - general: Musculoskeletal - general: swelling (BLE-lymphedema), normal tone, calves NT,no cordsNeuro/[employer]: alert, 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, CNII-XII intact, no sensory deficits, MMT BUE 4/5, hips 3-/5 distal 4/5. ResultsFindings/Data:Laboratory Tests: 01/12 01/12 01/12 01/11 01/11 0549 0547 0415 1914 1657Chemistry Sodium (134 - 147 mEq/L) 139 Potassium [...] 3.60 Prealbumin (16.0 - 40.0 mg/dL) 13.8 LHematology WBC (4.5 - 11.0 x10 3/uL) 6.0 [...] (Auto) (14.0 - 32.0 %) 5.5 L Colquitt % (Auto) (4.8 - 9.0 %) 8.5 Eos % (Auto) (0.3 - 3.7 %) 2.5 Baso % (Auto) (0.0 - 2.0 %) 0.5 Neut # (Auto) (2.0 - 7.6 x10 3/uL) 4.99 Lymph # (Auto) (1.0 - 3.8 x10 3/uL) 0.33 L [place] # (Auto) (0.1 - 0.8 x10 3/uL) 0.51 Eos # (Auto) (0.0 - 0.2 x10 3/uL) 0.15 Baso # (Auto) (0.0 - 0.2 x10 3/uL) 0.03 Abs Immat Gran (auto) (0.00 - 0.03 0.01x10 3/uL) Add Manual Diff NO Immature Gran % (0.0 - 2.0 %) 0.2 Nucleated RBC % (0 - 0 %) 0.0 Nucleated RBCs # (Man) (0.0 - 0.1 0.00x10 3/uL) 01/11 1114 Chemistry POC Glucose (70 - 110 MG/DL) 140 H Radiology data:Recent Impressions:RADIOLOGY - XR CHEST 1 V 01/09 0918 Report Impression - Status: SIGNED Entered: 01/09/2022 1049 IMPRESSION: 1. Improved aeration bilateral. Residual interstitial and perihilar opacities compatible with edema. Inflammation in the differential. 2. Residual subsegmental atelectasis. 3. Residual small volume pleural effusions. Impression By: Catherine Carlisle M.D. Diagnosis, Assessment PlanProblem List/A P: 1. Critical illness myopathy 2. CAD (coronary artery disease) 3. Severe mitral regurgitation 4. Constrictive pericarditis 5. S/P CABG x 1 6. S/P MVR (mitral valve replacement) 7. Immunosuppressed status 8. RONA on CPAP 9. Chronic a-fib 10. Crohn disease 11. Morbid obesity 12. Respiratory failure with hypoxia 13. Acute blood loss anemia 14. Generalized weakness 15. Impaired functional mobility, balance, gait, and endurance Free Text A P:Assessment:Critical illness myopathyConstrictive pericarditisSevere mitral idjzfcztkvgyqSOX19/7: Status post CABG x1 (ROBERTS to LAD), ILAp, omzeiybkecvryh88/7: S/p MVR1: Echo-EF 55-59%, normally functioning MV bioprosthesisChronic AF, s/p PPM/ablation-rate controlled-pacedVolume overload-BLE edemaHistory of lymphedemaGeneralized weaknessDeconditioningAcute blood loss anemiaHypertensionMorbid obesityHLD Crohn's diseaseSmokerHypoxic respiratory failureHypokalemia/hypomagnesemia secondary to diureticsAKI resolvedSignificant impaired ADLs, mobility, gait, balance and endurance Plan:-Comprehensive inpatient rehabilitation with physical, occupational and speech therapy 3 hours a day for 5 to 6 days per week-05/10 rehabilitation physician supervision-05/10 rehabilitation nursing care-Case management for safe discharge planning-Rehab MD to monitor comorbidities and functional progress.-Decubitus prevention-protective hydrating lotion-turn every 2 wskhs-sldbzjs-Gawjr program-MiraLAX and Senokot-Nutrition, monitor the patient's p.o. intake, check albumin 3.5 and prealbumin,dietary consult, protein supplements.-Strict fall and safety precaution-DVT prophylaxis-SCDs/antiembolism stockings-GI zdrvszvwhkh-Sfbyndpz-Tqskfcmg control-continue insulin-blood sugars good-as per zwyopdyl-TNQ-fbnohsau-nephrology following-Respiratory insufficiency-wean O2-postop pulmonary protocol, encourage I-S, deep cough and breathing exercises, slowly improving-CAD s/p CABG, MVR, and ILAA-on DAPT post-op care per CTS-Acute/chr AF s/p PPM/ablation. Rate controlled, paced rhythm-had ILAA during bypass, no need for AC-as per cardiology-Volume orlibjdf-usfxungg-qf diuretics, strict I's and O's Daily-HTN. BP stable-on lpzrvyoarv-LKY-Ma statins.-Crohn's disease. Per IM.-Early mobilization-OOB to chair-Work on bed mobility, transfer training, ADLs, pre-gait and gait exercises as tolerable. -Increase endurance and strength-Pain ncxumrudtt-Uqzkuxfaexc-aoduvwlpjs, CVS, medicine, nephrology-Labs reviewed-WBC normal, hemoglobin improved 9.8 improved, platelets normal, potassium 3.5, creatinine 1.0, magnesium 1.77, BNP 232, 180 -replete potassium and magnesium as /28: SOB-chest h-dby-kbblbged aeration bilaterally. Residual interstitial andperihilar opacities. Subsegmental atelectasis. Residual small volume pleural effusions.-Continue CPAP at night-Encourage I-S and ambulation-BLE edema-ANA PAULA hose and elevation, exercise, diuretics-Diuresis as per kxtsgyadtg-Hyrisk-jxjrvugl ferrous sulfate, B12, vitamin C monitor H H-Monitor lgkusesrd-Ghmrkf-Xaslhu-Continue current medications-Sternal incision intact and healing. Continue sternal precautions for 6 weeks-Monitor complains of being tired and sleepy-Advance therapies as tolerated-Patient has impaired gait, ADLs, endurance and balance with BLE edema and new sternal precautions. Patient will continue to benefit from inpatient rehab to maximize mobility for safe return home.-Team conference Progress: GAIT: 50 feet x 2, 30 feet and 18 feet with RW with SBA with WC follow for safety. Pt requires frequent rest breaks and encouragement during this task. Pt return in room, left sitting in Recliner with B LE elevated. All needs in reach including call rosa.No signs of distress or discomfort. Episodes of the desaturation 84% with walking. PM RPlease see team note.Plan and goals discussed with the patient. I agree with the teams findingELOS: [01/21]UQ-yzse-vttai with daughter-HH versus outpatient cardiac rehabilitationDME-RW, wheelchair TT 35 min>50% with discussing with patient about team conference, discharge plan, SOB, therapies, low potassium, rehab plan of care, goals, needs, and medical issues, examination. MAR and EMR reviewed. All Questions answered.Orders: Procedure Date/time Status NEB TREATMENT SUBSQ 01/12 1004 Active OXYGEN PER HOUR 01/12 10 Complete CPAP/BIPAP ADULT/CHILD 01/12 10 Complete Consultants: cardiology, cardiovascular surgery, hospitalist, nephrologyPlan discussed with: patient, nurse, interdisc care teamRehab attestation:Face to face exam completed. Treatment plan discussed with patient. Meets continued stay criteria. Agree with interdisciplinary treatment plan. at 1416 RPT #:[id number] OF REPORTPRProgress [id number]:23:00G.[id number] e for patient pxuoNFSWISSGUXRUTU4021-06-22T31:17:47 HC ACL 2022-01-11 09:44:00 [id number]/VY7 dzjPJ7SsB9Ex RmwM67TSZZID8YnLhE3RxHUg3965-06-89N73:44:00 [facility] Progress NoteREPORT#:[id number] REPORT STATUS: SignedDATE:01/11/22 TIME: 943 PATIENT: KIAH GILES UNIT #: [id number]#: [id number] [address] AGE: 76 SEX: F ATTEND: Jesus Landry [facility] AUTHOR: Kat Carreon APRN * ALL edits or amendments must be made on the electronic/computer document * SubjectiveChief complaint:BM yesterday Review of SystemsConstitutional:Reports: fatigue. Denies: chills, fever. Respiratory:Denies: productive cough (sputum), SOB. Cardiovascular:Denies: chest pain, palpitations. GI:Denies: abdominal pain, constipation. :Denies: dysuria, hematuria. All systems rev neg: except as marked Objective GeneralVS/I O:Vital Signs: Date Time Temp Pulse Resp B/P B/P Pulse O2 O2 Flow FiO2 Mean Ox Delivery Rate 01/11 0842 98 Nasal 3 cannula 01/11 0641 36.5 74 18 124/76 91.8 100 Nasal cannula 01/11 0424 71 100 40 01/11 0102 71 99 40 01/10 2354 36.5 73 18 122/75 90.5 98 01/10 2204 76 99 40 10/29 2200 Nasal 3 cannula 01/108 36.4 73 18 136/47 76.7 85 01/10 [...] Urine 300 200 PATIENT WEIGHT: Weight (lb): 248Weight (oz): 10.9Weight (kg): 112.800 Medications:Active Meds + DC'd Last 24 HrsFurosemide (LASIX) 40 MG BID 9A 5P PO Furosemide (LASIX) 40 MG Q12HR PO (DC) Lisinopril (ZESTRIL) 2.5 MG DAILY PO Ascorbic Acid (ASCORBIC ACID) 500 MG BID PO Bisacodyl (DULCOLAX) 10 MG DAILY PRN PRN RECTAL Potassium Chloride (POTASSIUM CHLORIDE 20MEQ TAB.ER) 40 MEQ DAILY PRN PRN PO Acetazolamide (DIAMOX) 250 MG DAILY PO Aspirin (ASPIRIN) 81 MG DAILY PO Clopidogrel Bisulfate (Plavix) 75 MG DAILY PO Cyanocobalamin (Vitamin B-12 500 mcg tab) 500 MCG DAILY PO Ferrous Sulfate (FERROUS SULFATE) 325 MG DAILY PO Furosemide (LASIX) 40 MG DAILY PO (DC) Insulin Glargine (Lantus/Semglee) 30 UNIT DAILY SUBQ Polyethylene Glycol (MIRALAX) 17 GM DAILY PO Sodium Chloride (SODIUM CHLORIDE) 10 ML BID IV Insulin Human Lispro (HUMALOG) 0 AC HS SUBQ Pantoprazole (PROTONIX) 40 MG DAILY@0600 PO Acetylcysteine (MUCOMYST FOR RT) 200 MG RTQ6H NEB Albuterol/Ipratropium (DUONEB) 3 ML RTQ6H NEB Glucagon (GLUCAGON) 1 MG ASDIR PRN IM Acetaminophen (TYLENOL) 650 MG Q4H PRN PRN PO Bisacodyl (DULCOLAX) 5 MG DAILY PRN PRN PO Dextrose/Water (DEXTROSE 10% IN WATER) 250 ML ASDIR PRN IV (CKD) Sodium Chloride (SODIUM CHLORIDE) 4 ML RTBID NEB Amiodarone HCl (CORDARONE) 200 MG Q12HR PO Atorvastatin Calcium (LIPITOR) 40 MG 2100 PO Docusate Sodium (COLACE) 100 MG BID PO Insulin Glargine (Lantus/Semglee) 20 UNIT BEDTIME SUBQ Melatonin (Melatonin) 3 MG BEDTIME PO Metoprolol Tartrate (LOPRESSOR) 25 MG Q12HR PO Ondansetron HCl (ZOFRAN ODT) 4 MG TID PRN PRN PO Sennosides (Senna Lax 8.6 MG TABLET) 17.2 MG BEDTIME PO Physical ExamGeneral appearance: alert, awake, orientedHead/Eyes: atraumatic, normal conjunctiva/sclera, normal eyelids/periorb.Neck: full range of motion, non-tenderCardiovascular: normal heart sounds, regular rate rhythmRespiratory: dyspneic, on oxygenAbdomen: non-tender, normal bowel sounds, soft, no distentionExtremities: edema, moves allNeuro/[employer]AU: alert, 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, CNII-XII intact, normal speech, no motor deficits, no sensory deficitsSkin: dry, intact ResultsFindings/Data:Laboratory Tests 01/11 01/11 01/11 01/10 01/10 0623 [...] - 110 MG/DL) 137 H Diagnosis, Assessment PlanConsultants: cardiology, cardiovascular surgery, hospitalist, nephrology Free Text DxA P NotesFree text DxA P notes:general weakness CAD - post CABGCHFHTNDMHLDafib OSAmorbid obesity CAD -- cardiology consult CV surgeon [...] 01/10 Continue bowel regimen, adjust as needed if no results. Replace K.01/11 +BM. Replace K+, discussed with RN to give PRN K on MAY. at 0946 at 1258 RPT #:[id number] OF REPORTPRProgress [id number]:44:00G.[id number] e for patient exxpDZSIRIKMPFTNLS2739-13-62B33:46:41 ACL 2022-01-11 06:34:00 [id number] AXpCKuhNnw9X dWKe8UxJID8H9iRMSB47zOvu6287-43-54Z24:34:[address] [facility] ([facility])Rehab Progress NoteREPORT#:[id number] REPORT STATUS: SignedDATE:01/11/22 TIME: 633 PATIENT: KIAH GILES UNIT #: [id number]#: [id number] [facility] [place] [birth year] AGE: 76 SEX: F ATTEND: Jesus Landry [facility] AUTHOR: Herberth Pantoja * ALL edits or amendments must be made on the electronic/computer document * SubjectiveChief complaint:Rehab follow-upSlept better. No SOB at rest.NADReports BLE edemaDenies GOLD/N/V/D/CP14 systems reviewed and neg. except that above. Objective GeneralVS:Vital Signs: Date Time Temp Pulse Resp B/P B/P Pulse O2 O2 Flow FiO2 Mean Ox Delivery Rate 01/11 0424 [...] 93 Nasal cannula PATIENT WEIGHT: Weight (lb): 252Weight (oz): 10.4Weight (kg): 114.600 Medications:Laboratory Tests 01/11 01/10 01/10 01/10 01/10 0530 1930 1602 1115 0530 Chemistry POC Glucose (70 - 110 MG/DL) 60 L 194 H 179 H 137 H 92 01/10 01/10 01/09 01/09 01/09 0450 0450 1936 1546 1054Chemistry Sodium (134 - 147 mEq/L) 142 Potassium [...] 9.0 Ionized Calcium Gigi (1.09 - 1.30 1.15MMOL/L) 01/09 01/09 01/09 01/08 01/08 0546 0433 0433 2026 1556Chemistry Potassium (3.4 - 5.0 mEq/L) 3.0 L POC Glucose (70 - 110 MG/DL) 94 167 H 153 H B-Natriuretic Peptide (0 - 100 PG/ML) 232.0 H 01/08 1054 Chemistry POC Glucose (70 - 110 MG/DL) 195 H Recent Impressions:RADIOLOGY - XR CHEST 1 V 01/09 0919 Report Impression - Status: SIGNED Entered: 01/09/2022 1049 IMPRESSION: 1. Improved aeration bilateral. Residual interstitial and perihilar opacities compatible with edema. Inflammation in the differential. 2. Residual subsegmental atelectasis. 3. Residual small volume pleural effusions. Impression By: Catherine Carlisle M.D. Active Meds + DC'd Last 24 HrsFurosemide (LASIX) 40 MG BID 9A 5P PO Furosemide (LASIX) 40 MG Q12HR PO (DC) Lisinopril (ZESTRIL) 2.5 MG DAILY PO Ascorbic Acid (ASCORBIC ACID) 500 MG BID PO Potassium Chloride (POTASSIUM CHLORIDE 20MEQ TAB.ER) 40 MEQ BID MEALS PO (DC) Bisacodyl (DULCOLAX) 10 MG DAILY PRN PRN RECTAL Potassium Chloride (POTASSIUM CHLORIDE 20MEQ TAB.ER) 40 MEQ DAILY PRN PRN PO Acetazolamide (DIAMOX) 250 MG DAILY PO Aspirin (ASPIRIN) 81 MG DAILY PO Clopidogrel Bisulfate (Plavix) 75 MG DAILY PO Cyanocobalamin (Vitamin B-12 500 mcg tab) 500 MCG DAILY PO Ferrous Sulfate (FERROUS SULFATE) 325 MG DAILY PO Furosemide (LASIX) 40 MG DAILY PO (DC) Insulin Glargine (Lantus/Semglee) 30 UNIT DAILY SUBQ Polyethylene Glycol (MIRALAX) 17 GM DAILY PO Sodium Chloride (SODIUM CHLORIDE) 10 ML BID IV Insulin Human Lispro (HUMALOG) 0 AC HS SUBQ Pantoprazole (PROTONIX) 40 MG DAILY@0600 PO Acetylcysteine (MUCOMYST FOR RT) 200 MG RTQ6H NEB Albuterol/Ipratropium (DUONEB) 3 ML RTQ6H NEB Glucagon (GLUCAGON) 1 MG ASDIR PRN IM Acetaminophen (TYLENOL) 650 MG Q4H PRN PRN PO Bisacodyl (DULCOLAX) 5 MG DAILY PRN PRN PO Dextrose/Water (DEXTROSE 10% IN WATER) 250 ML ASDIR PRN IV (CKD) Sodium Chloride (SODIUM CHLORIDE) 4 ML RTBID NEB Amiodarone HCl (CORDARONE) 200 MG Q12HR PO Atorvastatin Calcium (LIPITOR) 40 MG 2100 PO Docusate Sodium (COLACE) 100 MG BID PO Insulin Glargine (Lantus/Semglee) 20 UNIT BEDTIME SUBQ Melatonin (Melatonin) 3 MG BEDTIME PO Metoprolol Tartrate (LOPRESSOR) 25 MG Q12HR PO Ondansetron HCl (ZOFRAN ODT) 4 MG TID PRN PRN PO Sennosides (Senna Lax 8.6 MG TABLET) 17.2 MG BEDTIME PO Lactulose (LACTULOSE) 20 GM BID PRN PO (DC) Functional ProgressFunctional progress: PT daily note comment: S: Pt sitting in recliner, No reports of pain, agreeableto therapy. O: Pt seen for 90 mins treatment session. EDUVCATION: Fall prevention, safety awareness andenergy conservation skills. Pt sit to to stand [...] return in room, left sitting in Recliner with B LE elevated. All needs in reach including call rosa.No signs of distress or discomfort. A: Pt making steady progress from PT services. Ptshows increase stability and decrease risk of falls during transfers and gait. Pt requires frequent rest breaks due to SOB. During gait training and sit to stand transfers, Pt had X 3 Desatting 82% 85% and 87% in 02 via NCfor 2 liters. But easily goes back to WNL with 1-2 minssitting rest breaks.Overall tolerated treatment well. P: Continue with current POC Physical ExamGeneral appearance: alert, awakePsych: alert, normal affect, oriented x 3HEENT: anicteric, mucosal membranes moist, pupils reactive to light, sclera clearNeck: non-tender, supple, no JVDCardiovascular: regular rate rhythm, S1/S2, no murmurRespiratory: diminished breath sounds, on oxygen, clear bilaterallyAbdomen: obese, bowel sounds present, non-distended, soft, non-tenderSkin: dry, normal temperature, no rash, INCISIONS: CDI, sutures x 2.Musculoskeletal - general: Musculoskeletal - general: swelling (BLE-lymphedema), normal tone, calves NT,no cordsNeuro/[employer]ION [employer]AU: alert, 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, CNII-XII intact, no sensory deficits, MMT BUE 4/5, hips 3-/5 distal 4/5. ResultsFindings/Data:Laboratory Tests: 01/11 01/11 01/10 01/10 01/10 0623 0530 1930 1602 1115 Chemistry POC Glucose (70 - 110 MG/DL) 71 60 L 194 H 179 H 137 H Diagnosis, Assessment PlanProblem List/A P: 1. Critical illness myopathy 2. CAD (coronary artery disease) 3. Severe mitral regurgitation 4. Constrictive pericarditis 5. S/P CABG x 1 6. S/P MVR (mitral valve replacement) 7. Immunosuppressed status 8. RONA on CPAP 9. Chronic a-fib 10. Crohn disease 11. Morbid obesity 12. Respiratory failure with hypoxia 13. Acute blood loss anemia 14. Generalized weakness 15. Impaired functional mobility, balance, gait, and endurance Free Text A P:Assessment:Critical illness myopathyConstrictive pericarditisSevere mitral lsbnsndsgvqyiBMX71/7: Status post CABG x1 (ROBERTS to LAD), ILAp, ixaoahwgasfgta68/7: S/p MVR1: Echo-EF 55-59%, normally functioning MV bioprosthesisChronic AF, s/p PPM/ablation-rate controlled-pacedVolume overload-BLE edemaHistory of lymphedemaGeneralized weaknessDeconditioningAcute blood loss anemiaHypertensionMorbid obesityHLD Crohn's diseaseSmokerHypoxic respiratory failureHypokalemia/hypomagnesemia secondary to diureticsAKI resolvedSignificant impaired ADLs, mobility, gait, balance and endurance Plan:-Comprehensive inpatient rehabilitation with physical, occupational and speech therapy 3 hours a day for 5 to 6 days per week-05/10 rehabilitation physician supervision-05/10 rehabilitation nursing care-Case management for safe discharge planning-Rehab MD to monitor comorbidities and functional progress.-Decubitus prevention-protective hydrating lotion-turn every 2 vhtbe-krjkzju-Ajyce program-MiraLAX and Senokot-Nutrition, monitor the patient's p.o. intake, check albumin 3.5 and prealbumin,dietary consult, protein supplements.-Strict fall and safety precaution-DVT prophylaxis-SCDs/antiembolism stockings-GI wzofhekbwtl-Nuhewajl-Gaodhaoo control-continue insulin-blood sugars good-as per cpbjwlef-WMB-qdbnzdov-nephrology following-Respiratory insufficiency-wean O2-postop pulmonary protocol, encourage I-S, deep cough and breathing exercises, slowly improving-CAD s/p CABG, MVR, and ILAA-on DAPT post-op care per CTS-Acute/chr AF s/p PPM/ablation. Rate controlled, paced rhythm-had ILAA during bypass, no need for AC-as per cardiology-Volume hibfymaq-lgmpxlmx-yr diuretics, strict I's and O's Daily-HTN. BP stable-on uftuxfsltf-SDF-Gu statins.-Crohn's disease. Per IM.-Early mobilization-OOB to chair-Work on bed mobility, transfer training, ADLs, pre-gait and gait exercises as tolerable. -Increase endurance and strength-Pain kneykjfbcv-Owydiqkgpdy-zziqvxfaxt, CVS, medicine, nephrology-Labs reviewed-WBC normal, hemoglobin improved 8.7, platelets normal, potassium 3.0, creatinine 1.1, magnesium 1.83, BNP 232-replete oznsvvjlq31/28: SOB-chest z-scq-laudhnxl aeration bilaterally. Residual interstitial andperihilar opacities. Subsegmental atelectasis. Residual small volume pleural effusions.-Patient CPAP not working-RT to eval and try and fix-Encourage I-S and ambulation-BLE edema-ANA PAULA hose and elevation, exercise, diuretics-Diuresis as per fbulqieigl-Oyhijt-ausdxais ferrous sulfate, B12, vitamin C monitor H H-Monitor mujsqxjja-Aczyve-Olqhuy-Continue current medications-Sternal incision intact and healing. Continue sternal precautions for 6 weeks-Advance therapies as tolerated-Patient has impaired gait, ADLs, endurance and balance with BLE edema and new sternal precautions. Patient will continue to benefit from inpatient rehab to maximize mobility for safe return home. PM RPlease see team note.Plan and goals discussed with the patient. I agree with the teams findingELOS: [12 days]CK-vply-ukmup with daughter-HH versus outpatient cardiac rehabilitationDME-pending TT 33 min>50% with discussing with patient about SOB, therapies, low potassium, rehab plan of care, goals, needs, and medical issues, examination. MAR and EMRreviewed. All Questions answered.Rehab attestation:Face to face exam completed. Treatment plan discussed with patient. Meets continued stay criteria. Agree with interdisciplinary treatment plan. at [address] [facility] #:[id number] OF REPORTPRProgress hnfu1504-43-54V27:34:00G.[id number] e for patient vjzyAQCWAMDRAXTZTG2697-36-38S48:00:57 [facility] ACL 2022-01-10 13:40:00 [id number] +rT4a1KoNo o30h63+L7Fk/+uDjcv69ydWh4448-68-88D45:40:00 [facility] Progress NoteREPORT#:[id number] REPORT STATUS: SignedDATE:01/10/22 TIME: 1340 PATIENT: KIAH GILES UNIT #: [id number]#: [id number] [address] AGE: 76 SEX: F ATTEND: Jesus Landry [facility] AUTHOR: Suki Fuchs MD * ALL edits or amendments must be made on the electronic/computer document * SubjectiveChief complaint:CAD, S/P CABGHPI:This is a 76-year-old female who has past medical history of hypertension, diabetes, coronary artery disease, atrial fibrillation who presented with worsening shortness of breath and on further work-up was 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 She was withnormal kidney function prior to surgery and after her surgery she began to develop oliguria. Her procedure was done without any complications but after her surgery she did require pressor support for hypotension and she was intubated for respiratory acidosis and hypoxia and she was treated with vancomycin for infection treatment. She recovered kidney function and has been on diuretics for hypervolemia which has also improved significantly. 01/10Blanca was seen in rehab today and was doing well, eating well. Objective GeneralVS/I O:Vital Signs: Date Time Temp Pulse Resp B/P B/P Pulse O2 O2 Flow FiO2 Mean Ox Delivery Rate 01/11 2204 76 99 40 01/10 1928 36.4 [...] scale Measurement Method PATIENT WEIGHT: Weight (lb): 252Weight (oz): 10.4Weight (kg): 114.600 Physical ExamGeneral appearance: alert, awake, orientedHead/eyes: atraumatic, EOMIENT: moist mucous membranes, normal noseNeck: no JVD, no lymphadenopathyCardiovascular: normal heart sounds, regular rate and rhythmRespiratory: aerating well, clear to auscultationAbdomen: non-tender, softGenitourinary: no bladder distention, no flank painExtremities: pitting edema, no gangrene, no swelling Diagnosis, Assessment PlanFree Text A P:This is a 76-year-old female known to have hypertension, diabetes, atrial fibrillation, s/p permanent pacemaker and history of ablation presenting with shortness of breath and 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 Nephrology is following for: 1. Acute kidney injury: Most likely it is prerenal (cardiorenal), she has been hypotensive postoperatively with requirement for pressor support and inotropic support. Resolved with stable hemodynamics 2. Hypervolemia:Improved, on low dose lasix. 3. Hypokalemia: Plan to replace nd monitor closely. 4. Metabolic alkalosis secondary to diuretics. Plan to monitoe and give diamox if worsens. 01/09 1. Acute kidney injury: Most likely it is prerenal (cardiorenal), she has been hypotensive postoperatively with requirement for pressor support and inotropic support. Resolved with stable hemodynamics 2. Hypervolemia:Improved, on low dose lasix. 3. Hypokalemia: Plan to replace and monitor closely. 4. Metabolic alkalosis secondary to diuretics. Plan to monitor and continue diamox. 01/10 1. Acute kidney injury: Most likely it is prerenal (cardiorenal), she has been hypotensive postoperatively with requirement for pressor support and inotropic support. Resolved with stable hemodynamics 2. Hypervolemia:Improved, on low dose lasix.Dose increased to 40 Q12H today as she was looking volume overloaded. 3. Hypokalemia: Plan to replace and monitor closely. 4. Metabolic alkalosis secondary to diuretics. Plan to monitor and continue diamox. Consultants: cardiology, cardiovascular surgery, hospitalist, nephrology at 2350 RPT #:[id number] OF REPORTPRProgress vktd5808-52-95G84:40:00G.[id number] e for patient vtdmPEGNOKMORSYGRA3967-54-24R55:50:33 [facility] 2022-01-10 11:54:00 [id number]/itX/TH9DE91fA8FX cetmcrEEy2uc NUhCWqsRG6DNZhiyhEaQAQRt7900-18-72R44:54:[address] [facility] ([facility])Cardiology Progress NoteREPORT#:[id number] REPORT STATUS: SignedDATE:01/10/22 TIME: 1154 PATIENT: KIAH GILES UNIT #: [id number]#: [id number] [address] AGE: 76 SEX: F ATTEND: Jesus Landry [facility] AUTHOR: Palomo Trotter MD * ALL edits or amendments must be made on the electronic/computer document * SubjectiveChief complaint:None Objective GeneralVS/I O:24 hour I O ending at 0700: 01/10 0700 01/09 1900 Intake Total 120 420 Output Total Balance 120 420 Intake, Oral 120 420 Number 1 Bowel Movements Number 0 Incontinent Voids Number Voids 4 Patient 114.6 kg Weight Weight Bed scale Measurement Method Vital Signs: Date Time Temp Pulse Resp B/P B/P Pulse O2 O2 Flow FiO2 Mean Ox Delivery Rate 01/10 0640 36.4 75 18 112/67 81.8 93 Nasal cannula 01/10 0445 78 96 40 01/09 2356 36.0 82 18 117/80 0.0 96 01/09 1941 71 99 40 01/09 194 99 BiPAP 40 01/09 193 36.5 71 18 131/69 89.6 99 01/090 Nasal 3 cannula 01/09 1545 36.3 70 18 116/73 87.4 99 Nasal cannula PATIENT WEIGHT: Weight (lb): 252Weight (oz): 10.4Weight (kg): 114.600 Medications:Active Meds + DC'd Last 24 HrsAscorbic Acid (ASCORBIC ACID) 500 MG BID PO Potassium Chloride (POTASSIUM CHLORIDE 20MEQ TAB.ER) 40 MEQ BID MEALS PO (DC) Furosemide (LASIX) 40 MG NOW ONE PO (DC) Bisacodyl (DULCOLAX) 10 MG DAILY PRN PRN RECTAL Potassium Chloride (POTASSIUM CHLORIDE 20MEQ TAB.ER) 40 MEQ DAILY PRN PRN PO Acetazolamide (DIAMOX) 250 MG DAILY PO Aspirin (ASPIRIN) 81 MG DAILY PO Clopidogrel Bisulfate (Plavix) 75 MG DAILY PO Cyanocobalamin (Vitamin B-12 500 mcg tab) 500 MCG DAILY PO Ferrous Sulfate (FERROUS SULFATE) 325 MG DAILY PO Furosemide (LASIX) 40 MG DAILY PO Insulin Glargine (Lantus/Semglee) 30 UNIT DAILY SUBQ Polyethylene Glycol (MIRALAX) 17 GM DAILY PO Sodium Chloride (SODIUM CHLORIDE) 10 ML BID IV Insulin Human Lispro (HUMALOG) 0 AC HS SUBQ Pantoprazole (PROTONIX) 40 MG DAILY@0600 PO Acetylcysteine (MUCOMYST FOR RT) 200 MG RTQ6H NEB Albuterol/Ipratropium (DUONEB) 3 ML RTQ6H NEB Glucagon (GLUCAGON) 1 MG ASDIR PRN IM Acetaminophen (TYLENOL) 650 MG Q4H PRN PRN PO Bisacodyl (DULCOLAX) 5 MG DAILY PRN PRN PO Dextrose/Water (DEXTROSE 10% IN WATER) 250 ML ASDIR PRN IV (CKD) Sodium Chloride (SODIUM CHLORIDE) 4 ML RTBID NEB Amiodarone HCl (CORDARONE) 200 MG Q12HR PO Atorvastatin Calcium (LIPITOR) 40 MG 2100 PO Docusate Sodium (COLACE) 100 MG BID PO Insulin Glargine (Lantus/Semglee) 20 UNIT BEDTIME SUBQ Melatonin (Melatonin) 3 MG BEDTIME PO Metoprolol Tartrate (LOPRESSOR) 25 MG Q12HR PO Ondansetron HCl (ZOFRAN ODT) 4 MG TID PRN PRN PO Sennosides (Senna Lax 8.6 MG TABLET) 17.2 MG BEDTIME PO Lactulose (LACTULOSE) 20 GM BID PRN PO (DC) Physical ExamGeneral appearance: awakeENT: normal noseNeck: no JVDCardiovascular: CV assessment: regular rate and rhythmRespiratory: decreased breath sounds, no distressAbdomen: soft, non-tender, normal bowel sounds, no distentionGenitourinary: no flank pain, no urinary catheterUpper extremity: UE assessment: no edemaLower extremity: LE assessment: no edemaMusculoskeletal: normal inspectionNeuro/[employer]: alert, 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, normal speechSkin: poor skin turgorPsychiatry: normal affect, normal mood Diagnosis, Assessment Plan Free Text DxA P NotesFree Text DxA P Notes:Ms Giles is a 76 y/o female with PMHx of CAD, HLD, T2DM, RONA (CPAP at home), smoker, Crohn's disease, AF s/p ablation s/p PPM, and chronic lymphedema. She isrecovering from CABG and MVR. She is transferred to [facility] for inpatient rehabilitation. Cardiolgy is consulted for continuity of cardiac-related care. 1. CAD s/p CABG, MVR, and ILAA. On Plavix, aspirin, beta-delma, statin 2. Chronic AF s/p PPM/ablation. had ILAA during bypass no need for ACkeep K >4 and Mag above 2taper amiodarone prior to dischargeK replaced today 3. Chronic Diastolic CHF - euvolemicon PO Lasix 4. Hypertension - normotensivecontinue metoprolol tartrate 25 mg BID 5. HyperlipidemiaContinue statins. 6. MARCELLO - resolvedper Nephrology overall doing well in rehabcontinue supportive carediscussed with nurse at 1316 RPT #:[id number] OF REPORTPRProgress eiqe0124-33-48Q05:54:00G.[id number] e for patient xkhoHZVSDKXWAIMWCC7955-74-16B72:16:49 [facility] ACL 2022-01-10 09:23:00 [id number]+wvcaH+qgVO0z+JdvHMrEB 7yzMFwcPcfYH ywCnbHPZZKHKLtLXixBmKAaH5235-87-65R27:23:00 [facility] CenterHospital[facility] Progress NoteREPORT#:[id number] REPORT STATUS: SignedDATE:01/10/22 TIME: 922 PATIENT: KIAH GILES UNIT #: [id number]#: [id number] [address] AGE: 76 SEX: F ATTEND: Jesus Landry [facility] AUTHOR: Kat Carreon APRN * ALL edits or amendments must be made on the electronic/computer document * SubjectiveChief complaint:in therapy, reports constipation Review of SystemsConstitutional:Reports: generalized weakness. Denies: chills, fatigue, fever. Respiratory:Denies: productive cough (sputum), SOB. Cardiovascular:Denies: chest pain, palpitations. GI:Reports: constipation. Denies: abdominal pain. :Denies: dysuria, frequency. All systems rev neg: except as marked Objective GeneralVS/I O:Vital Signs: Date Time Temp Pulse Resp B/P B/P Pulse O2 O2 Flow FiO2 Mean Ox Delivery Rate 01/10 0640 [...] scale Measurement Method PATIENT WEIGHT: Weight (lb): 252Weight (oz): 10.4Weight (kg): 114.600 Medications:Active Meds + DC'd Last 24 HrsAscorbic Acid (ASCORBIC ACID) 500 MG BID PO Potassium Chloride (POTASSIUM CHLORIDE 20MEQ TAB.ER) 40 MEQ BID MEALS PO (DC) Furosemide (LASIX) 40 MG NOW ONE PO (DC) Bisacodyl (DULCOLAX) 10 MG DAILY PRN PRN RECTAL Potassium Chloride (POTASSIUM CHLORIDE 20MEQ TAB.ER) 40 MEQ DAILY PRN PRN PO Acetazolamide (DIAMOX) 250 MG DAILY PO Aspirin (ASPIRIN) 81 MG DAILY PO Clopidogrel Bisulfate (Plavix) 75 MG DAILY PO Cyanocobalamin (Vitamin B-12 500 mcg tab) 500 MCG DAILY PO Ferrous Sulfate (FERROUS SULFATE) 325 MG DAILY PO Furosemide (LASIX) 40 MG DAILY PO Insulin Glargine (Lantus/Semglee) 30 UNIT DAILY SUBQ Polyethylene Glycol (MIRALAX) 17 GM DAILY PO Sodium Chloride (SODIUM CHLORIDE) 10 ML BID IV Insulin Human Lispro (HUMALOG) 0 AC HS SUBQ Pantoprazole (PROTONIX) 40 MG DAILY@0600 PO Acetylcysteine (MUCOMYST FOR RT) 200 MG RTQ6H NEB Albuterol/Ipratropium (DUONEB) 3 ML RTQ6H NEB Glucagon (GLUCAGON) 1 MG ASDIR PRN IM Acetaminophen (TYLENOL) 650 MG Q4H PRN PRN PO Bisacodyl (DULCOLAX) 5 MG DAILY PRN PRN PO Dextrose/Water (DEXTROSE 10% IN WATER) 250 ML ASDIR PRN IV (CKD) Sodium Chloride (SODIUM CHLORIDE) 4 ML RTBID NEB Amiodarone HCl (CORDARONE) 200 MG Q12HR PO Atorvastatin Calcium (LIPITOR) 40 MG 2100 PO Docusate Sodium (COLACE) 100 MG BID PO Insulin Glargine (Lantus/Semglee) 20 UNIT BEDTIME SUBQ Melatonin (Melatonin) 3 MG BEDTIME PO Metoprolol Tartrate (LOPRESSOR) 25 MG Q12HR PO Ondansetron HCl (ZOFRAN ODT) 4 MG TID PRN PRN PO Sennosides (Senna Lax 8.6 MG TABLET) 17.2 MG BEDTIME PO Lactulose (LACTULOSE) 20 GM BID PRN PO (DC) Physical ExamGeneral appearance: alert, awake, orientedHead/Eyes: atraumatic, normal conjunctiva/sclera, normal eyelids/periorb.Neck: full range of motion, non-tenderCardiovascular: normal heart sounds, regular rate rhythmRespiratory: dyspneic, on oxygenAbdomen: non-tender, normal bowel sounds, soft, no distentionExtremities: edema, moves allNeuro/[employer]: alert, 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, CNII-XII intact, normal speech, no motor deficits, no sensory deficitsSkin: dry, intact ResultsFindings/Data:Laboratory Tests 01/10 01/10 01/09 01/09 01/09 0530 0450 1936 1546 1054Chemistry Sodium (134 - 147 mEq/L) 142 Potassium [...] 9.0 Ionized Calcium Gigi (1.09 - 1.30 1.15MMOL/L) Radiology data:Recent Impressions:RADIOLOGY - XR CHEST 1 V 01/09 5900 Report Impression - Status: SIGNED Entered: 01/09/2022 1049 IMPRESSION: 1. Improved aeration bilateral. Residual interstitial and perihilar opacities compatible with edema. Inflammation in the differential. 2. Residual subsegmental atelectasis. 3. Residual small volume pleural effusions. Impression By: Catherine Carlisle M.D. Diagnosis, Assessment PlanConsultants: cardiology, cardiovascular surgery, hospitalist, nephrology Free Text DxA P NotesFree text DxA P notes:general weakness CAD - post CABGCHFHTNDMHLDafib OSAmorbid obesity CAD -- cardiology consult CV surgeon [...] 01/10 Continue bowel regimen, adjust as needed if no results. Replace K. at 1204 at 1257 RPT #:[id number] OF REPORTPRProgress tubh6278-87-22Q91:23:00G.[id number] e for patient goauURIFWRSBUIOSJD0678-13-37Z65:05:13 [facility] 2022-01-10 06:39:00 [id number]t u2OIhm3yaQrm rSpwgh/O3PgmqORHyvoyiztS2583-66-16H98:39:[address] [facility] ([facility]Re[facility] Progress NoteREPORT#:[id number] REPORT STATUS: SignedDATE:01/10/22 TIME: 0639 PATIENT: KIAH GILES UNIT #: [id number]#: [id number] [address] AGE: 76 SEX: F ATTEND: Jesus Landry MDADM AUTHOR: Herberth Pantoja * ALL edits or amendments must be made on the electronic/computer document * SubjectiveChief complaint:Rehab follow-upSlept better. No SOB at rest.NADEdema BLE, tedsDenies GOLD/N/V/D/CP14 systems reviewed and neg. except that above. Objective GeneralVS:Vital Signs: Date Time Temp Pulse Resp B/P B/P Pulse O2 O2 Flow FiO2 Mean Ox Delivery Rate 01/10 0445 78 96 40 01/09 2356 96.8 82 18 117/80 0.0 96 01/09 1941 71 99 40 01/09 1941 99 BiPAP 40 01/09 1936 97.7 71 18 131/69 89.6 99 01/09 1900 Nasal 3 cannula 01/09 1545 97.3 70 18 116/73 87.4 99 Nasal cannula 01/09 1032 Nasal 3 cannula 01/09 0848 99 Nasal 3 cannula 01/09 0648 97.5 72 18 138/76 96.8 100 Nasal cannula PATIENT WEIGHT: Weight (lb): 253Weight (oz): 12.03Weight (kg): 115.100 Medications:Active Meds + DC'd Last 24 HrsAscorbic Acid (ASCORBIC ACID) 500 MG BID PO Potassium Chloride (POTASSIUM CHLORIDE 20MEQ TAB.ER) 40 MEQ BID MEALS PO Furosemide (LASIX) 40 MG NOW ONE PO (DC) Bisacodyl (DULCOLAX) 10 MG DAILY PRN PRN RECTAL Potassium Chloride (POTASSIUM CHLORIDE 20MEQ TAB.ER) 40 MEQ DAILY PRN PRN PO Acetazolamide (DIAMOX) 250 MG DAILY PO Aspirin (ASPIRIN) 81 MG DAILY PO Clopidogrel Bisulfate (Plavix) 75 MG DAILY PO Cyanocobalamin (Vitamin B-12 500 mcg tab) 500 MCG DAILY PO Ferrous Sulfate (FERROUS SULFATE) 325 MG DAILY PO Furosemide (LASIX) 40 MG DAILY PO Insulin Glargine (Lantus/Semglee) 30 UNIT DAILY SUBQ Polyethylene Glycol (MIRALAX) 17 GM DAILY PO Sodium Chloride (SODIUM CHLORIDE) 10 ML BID IV Insulin Human Lispro (HUMALOG) 0 AC HS SUBQ Pantoprazole (PROTONIX) 40 MG DAILY@0600 PO Acetylcysteine (MUCOMYST FOR RT) 200 MG RTQ6H NEB Albuterol/Ipratropium (DUONEB) 3 ML RTQ6H NEB Glucagon (GLUCAGON) 1 MG ASDIR PRN IM Acetaminophen (TYLENOL) 650 MG Q4H PRN PRN PO Bisacodyl (DULCOLAX) 5 MG DAILY PRN PRN PO Dextrose/Water (DEXTROSE 10% IN WATER) 250 ML ASDIR PRN IV (CKD) Sodium Chloride (SODIUM CHLORIDE) 4 ML RTBID NEB Amiodarone HCl (CORDARONE) 200 MG Q12HR PO Atorvastatin Calcium (LIPITOR) 40 MG 2100 PO Docusate Sodium (COLACE) 100 MG BID PO Insulin Glargine (Lantus/Semglee) 20 UNIT BEDTIME SUBQ Melatonin (Melatonin) 3 MG BEDTIME PO Metoprolol Tartrate (LOPRESSOR) 25 MG Q12HR PO Ondansetron HCl (ZOFRAN ODT) 4 MG TID PRN PRN PO Sennosides (Senna Lax 8.6 MG TABLET) 17.2 MG BEDTIME PO Lactulose (LACTULOSE) 20 GM BID PRN PO Functional ProgressFunctional progress:PT daily note comment: S: Pt REPORTS SHE DIDNT SLEEP WELL, CPAP " WASNT WORKING WELL" FEELS TIRED. O: Pt SEEN FOR 90 MIN OF PT. TRANSFERS SIT TO STAND TO W/C W/ CGA. W/C MOBILITY X 40' W/ SPV, ENCOURAGEMENT.SPO2 94% ON 2L. SIT<->STAND X 5 REPS FROM W/C W/ CGA TO MIN A AND CUES FOR STERANL PRECAUTIONS. GAIT W/ RW AND SBA X 20', 35', 40', 35', 52'. SIT<->STAND 2X5 REPS FROM MAT W/O UE USE. THER EX TO B LE'S ALL PLANES 2X20 REPS IN SITTING. TOILET TRANSFERS W/ CGA, TOILETS W/ MOD A AND NEEDS A LOT OF ENCOURAGEMENT TO ATTEMPT HYGINE/DRESSING ON OWN. A: Pt W/ MORE COUGHING AND EDEMA TODAY, RN AWARE.REFUSED COMPRESSION GARMENTS. Physical ExamGeneral appearance: alert, awakePsych: alert, normal affect, oriented x 3HEENT: anicteric, mucosal membranes moist, pupils reactive to light, sclera clearNeck: non-tender, supple, no JVDCardiovascular: regular rate rhythm, S1/S2, no murmurRespiratory: diminished breath sounds, on oxygen, clear bilaterallyAbdomen: obese, bowel sounds present, non-distended, soft, non-tenderSkin: dry, normal temperature, no rash, INCISIONS: CDI, sutures x 2.Musculoskeletal - general: Musculoskeletal - general: swelling (BLE-lymphedema), normal tone, calves NT,no cordsNeuro/CAPTAIN [employer] PRE[employer]ION [employer]AU: alert, 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, CNII-XII intact, no sensory deficits, MMT BUE 4/5, hips 3-/5 distal 4/5. ResultsFindings/Data:Laboratory Tests 01/10 01/09 01/09 01/09 01/09 0530 [...] - 5.0 g/dL) 3.50 Laboratory Tests 01/08 05 Hematology WBC (4.5 - 11.0 x10 3/uL) [...] (Auto) (14.0 - 32.0 %) 8.3 L Colquitt % (Auto) (4.8 - 9.0 %) 11.5 H Eos % (Auto) (0.3 - 3.7 %) 2.3 Baso % (Auto) (0.0 - 2.0 %) 0.7 Neut # (Auto) (2.0 - 7.6 x10 3/uL) 4.24 Lymph # (Auto) (1.0 - 3.8 x10 3/uL) 0.46 L [place] # (Auto) (0.1 - 0.8 x10 3/uL) 0.64 Eos # (Auto) (0.0 - 0.2 x10 3/uL) 0.13 Baso # (Auto) (0.0 - 0.2 x10 3/uL) 0.04 Abs Immat Gran (auto) (0.00 - 0.03 x10 3/uL) 0.05 H Add Manual Diff NO Immature Gran % (0.0 - 2.0 %) 0.9 Nucleated RBC % (0 - 0 %) 0.0 Nucleated RBCs # (Man) (0.0 - 0.1 x10 3/uL) 0.00 Microbiology Date/Time Procedure - Status Source Growth 01/08 510 MRSA DNA Surveillance Screen - COMP NASAL Recent Impressions:RADIOLOGY - XR CHEST 1 V 01/09 1149 Report Impression - Status: SIGNED Entered: 01/09/2022 1049 IMPRESSION: 1. Improved aeration bilateral. Residual interstitial and perihilar opacities compatible with edema. Inflammation in the differential. 2. Residual subsegmental atelectasis. 3. Residual small volume pleural effusions. Impression By: Catherine Carlisle M.D. Diagnosis, Assessment PlanProblem List/A P: 1. Critical illness myopathy 2. CAD (coronary artery disease) 3. Severe mitral regurgitation 4. Constrictive pericarditis 5. S/P CABG x 1 6. S/P MVR (mitral valve replacement) 7. Immunosuppressed status 8. RONA on CPAP 9. Chronic a-fib 10. Crohn disease 11. Morbid obesity 12. Respiratory failure with hypoxia 13. Acute blood loss anemia 14. Generalized weakness 15. Impaired functional mobility, balance, gait, and endurance Free Text A P:Assessment:Critical illness myopathyConstrictive pericarditisSevere mitral lcuyfklhjpxrwVQV08/7: Status post CABG x1 (ROBERTS to LAD), ILAp, jyhbqyqgoswwcn60/7: S/p MVR10: Echo-EF 55-59%, normally functioning MV bioprosthesisChronic AF, s/p PPM/ablation-rate controlled-pacedVolume overload-BLE edemaHistory of lymphedemaGeneralized weaknessDeconditioningAcute blood loss anemiaHypertensionMorbid obesityHLD Crohn's diseaseSmokerHypoxic respiratory failureHypokalemia/hypomagnesemia secondary to diureticsAKI resolvedSignificant impaired ADLs, mobility, gait, balance and endurance Plan:-Comprehensive inpatient rehabilitation with physical, occupational and speech therapy 3 hours a day for 5 to 6 days per week-05/10 rehabilitation physician supervision-05/10 rehabilitation nursing care-Case management for safe discharge planning-Rehab MD to monitor comorbidities and functional progress.-Decubitus prevention-protective hydrating lotion-turn every 2 bshwj-rmlvvah-Fsusu program-MiraLAX and Senokot-Nutrition, monitor the patient's p.o. intake, check albumin 3.5 and prealbumin,dietary consult, protein supplements.-Strict fall and safety precaution-DVT prophylaxis-SCDs/antiembolism stockings-GI wxtfmwajlvz-Mdbxityh-Tcwkkvcb control-continue insulin-blood sugars good-as per lebtdjro-GGW-ixyctxgg-nephrology following-Respiratory insufficiency-wean O2-postop pulmonary protocol, encourage I-S, deep cough and breathing exercises, slowly improving-CAD s/p CABG, MVR, and ILAA-on DAPT post-op care per CTS-Acute/chr AF s/p PPM/ablation. Rate controlled, paced rhythm-had ILAA during bypass, no need for AC-as per cardiology-Volume ambxtwrf-syboruyw-kb diuretics, strict I's and O's Daily-HTN. BP stable-on zgdzwnarkz-DAN-Qr statins.-Crohn's disease. Per IM.-Early mobilization-OOB to chair-Work on bed mobility, transfer training, ADLs, pre-gait and gait exercises as tolerable. -Increase endurance and strength-Pain aewbkrupsl-Yhspqaspkpt-jxgtkwjyvy, CVS, medicine, nephrology-Labs reviewed-WBC normal, hemoglobin improved 8.7, platelets normal, potassium 3.0, creatinine 1.1, magnesium 1.83, BNP 232-replete yoyjiwixi46/28: SOB-chest g-ywv-rwudpcgm aeration bilaterally. Residual interstitial andperihilar opacities. Subsegmental atelectasis. Residual small volume pleural effusions.-Patient CPAP not working-RT to eval and try and fix-Encourage I-S and ambulation-BLE edema-ANA PAULA hose and elevation, exercise, diuretics-Diuresis as per pgqkdtvokf-Exmfxi-zhvplhrz ferrous sulfate, B12, vitamin C monitor H H-Monitor telemetry-DC if okay with vudlvrybba-Hpwrtr-Cynbkk-Continue current medications-Sternal incision intact and healing. Continue sternal precautions for 6 weeks-Advance therapies as tolerable-Patient has impaired gait, ADLs, endurance and balance with BLE edema and new sternal precautions. Patient will continue to benefit from inpatient rehab to maximize mobility for safe return home. PM RPlease see team note.Plan and goals discussed with the patient. I agree with the teams findingELOS: [12 days]QE-ekqz-rlnrv with daughter-HH versus outpatient cardiac rehabilitationDME-pending TT 34 min>50% with discussing with patient about SOB, therapies, low potassium, rehab plan of care, goals, expectations, needs, and medical issues, examination. MAR and EMR reviewed. All Questions answered.Rehab attestation:Face to face exam completed. Treatment plan discussed with patient. Meets continued stay criteria. Agree with interdisciplinary treatment plan. at [address] [facility] #:[id number] OF REPORTPRProgress dyzp2520-23-21O80:39:00G.[id number] e for patient kilhZRMPKKPAWMPQQV0576-13-83I02:38:30 HC ACL 2022-01-09 12:55:00 [id number] rLwVe6I1udAD Ir96sny+2yBUkcHJmMOtRDGU7473-29-27Z00:55:00 [facility] Progress NoteREPORT#:[id number] REPORT STATUS: SignedDATE:01/09/22 TIME: 1255 PATIENT: KIAH GILES UNIT #: [id number]#: [id number] [address] AGE: 76 SEX: F ATTEND: Jesus Landry [facility] AUTHOR: Suki Fuchs MD * ALL edits or amendments must be made on the electronic/computer document * SubjectiveChief complaint:CAD, S/P CABGHPI:This is a 76-year-old female who has past medical history of hypertension, diabetes, coronary artery disease, atrial fibrillation who presented with worsening shortness of breath and on further work-up was 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 She was withnormal kidney function prior to surgery and after her surgery she began to develop oliguria. Her procedure was done without any complications but after her surgery she did require pressor support for hypotension and she was intubated for respiratory acidosis and hypoxia and she was treated with vancomycin for infection treatment. She recovered kidney function and has been on diuretics for hypervolemia which has also improved significantly. 01/09She was seen in rehab today and was doing well, eating well. Objective GeneralVS/I O:Vital Signs: Date Time Temp Pulse Resp B/P B/P Pulse O2 O2 Flow FiO2 Mean Ox Delivery Rate 01/09 1941 [...] scale Measurement Method PATIENT WEIGHT: Weight (lb): 253Weight (oz): 12.03Weight (kg): 115.100 Physical ExamGeneral appearance: alert, awake, orientedHead/eyes: atraumatic, EOMIENT: moist mucous membranes, normal noseNeck: no JVD, no lymphadenopathyCardiovascular: normal heart sounds, regular rate and rhythmRespiratory: aerating well, clear to auscultationAbdomen: non-tender, softGenitourinary: no bladder distention, no flank painExtremities: pitting edema, no gangrene, no swelling Diagnosis, Assessment PlanFree Text A P:This is a 76-year-old female known to have hypertension, diabetes, atrial fibrillation, s/p permanent pacemaker and history of ablation presenting with shortness of breath and 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 Nephrology is following for: 1. Acute kidney injury: Most likely it is prerenal (cardiorenal), she has been hypotensive postoperatively with requirement for pressor support and inotropic support. Resolved with stable hemodynamics 2. Hypervolemia:Improved, on low dose lasix. 3. Hypokalemia: Plan to replace nd monitor closely. 4. Metabolic alkalosis secondary to diuretics. Plan to monitoe and give diamox if worsens. 01/09 1. Acute kidney injury: Most likely it is prerenal (cardiorenal), she has been hypotensive postoperatively with requirement for pressor support and inotropic support. Resolved with stable hemodynamics 2. Hypervolemia:Improved, on low dose lasix. 3. Hypokalemia: Plan to replace and monitor closely. 4. Metabolic alkalosis secondary to diuretics. Plan to monitor and continue diamox. Consultants: cardiology, cardiovascular surgery, hospitalist, nephrology at 2155 RPT #:[id number] OF REPORTPRProgress afxn5500-67-94D87:55:00G.[id number] e for patient yxshEWYTOXOHHPNYMN5922-67-75Z85:55:55 HC ACL 2022-01-09 12:24:00 [id number] 1MJiuPqgmzvT L4vQ6ueCmXqYVaWnjNjTl4QQ8205-61-19Z70:24:00 [facility])Cardiology Progress NoteREPORT#:[id number] REPORT STATUS: SignedDATE:01/09/22 TIME: 1224 PATIENT: KIAH GILES UNIT #: [id number]#: [id number] [address] AGE: 76 SEX: F ATTEND: Jesus Landry [facility] AUTHOR: Jillian Lane VISUAL EFFECTS ARTIST * ALL edits or amendments must be made on the electronic/computer document * SubjectiveChief complaint:None Objective GeneralVS/I O:Laboratory Tests 01/09/22 0433:[Embedded Image Not Available] 01/08/22 0510:[Embedded Image Not Available]Current Medications Sig/Frankie Start time Last Medication Dose Route Stop Time Status Admin Ascorbic Acid 500 MG BID 01/09 2100 AC PO 02/08 205 Potassium Chloride 40 MEQ BID MEALS 01/09 1700 AC PO 01/10 0801 Bisacodyl 10 MG DAILY PRN PRN 01/09 1115 AC RECTAL 02/08 1114 Potassium Chloride 40 MEQ DAILY PRN PRN 01/08 1100 AC PO 02/07 1059 Acetazolamide 250 MG DAILY 01/08 0900 AC 01/09 PO 01/15 0859 0745 Aspirin 81 MG DAILY 01/08 09 AC 01/09 PO 02/07 0859 0745 Clopidogrel Bisulfate 75 MG DAILY 01/08 09 AC 01/09 PO 02/07 0859 0745 Cyanocobalamin 500 MCG DAILY 01/08 0900 AC 01/09 PO 02/07 0859 0746 Ferrous Sulfate 325 MG DAILY 01/08 09 AC 01/09 PO 02/07 0859 0746 Furosemide 40 MG DAILY 01/08 09 AC 01/09 PO 02/07 0859 0745 Insulin Glargine 30 UNIT DAILY 01/08 0900 AC 01/09 SUBQ 02/07 0859 0745 Polyethylene Glycol 17 GM DAILY 01/08 09 AC 01/08 PO 01/17 0901 0751 Sodium Chloride 10 ML BID 01/08 09 AC 01/09 IV 02/07 0859 0746 Insulin Human Lispro 0 AC HS 01/08 0730 AC 01/09 SUBQ 02/07 0729 1145 Pantoprazole 40 MG DAILY@0600 01/08 0600 AC 01/09 PO 02/07 0559 0508 Acetylcysteine 200 MG [...] Calcium 40 MG 2100 01/07 2100 AC 01/08 PO 02/06 2059 204 Docusate Sodium 100 MG BID 01/07 2100 AC 01/09 PO 02/06 2059 0745 Insulin Glargine 20 UNIT BEDTIME 01/07 2100 AC 01/08 SUBQ 02/06 Melatonin 3 MG BEDTIME 01/07 2100 AC 01/08 PO 02/06 Metoprolol Tartrate 25 MG Q12HR 01/07 2100 AC 01/09 PO 02/06 2059 0746 Ondansetron HCl 4 MG TID PRN PRN 01/07 2100 AC 01/09 PO 02/06 2059 0823 Sennosides 17.2 MG BEDTIME 01/07 2100 AC PO 02/06 2059 Lactulose 20 GM BID PRN 01/07 184 PO 01/10 0901 24 hour I O [...] 110/47 68.1 98 PATIENT WEIGHT: Weight (lb): 253Weight (oz): 12.03Weight (kg): 115.100 Physical ExamGeneral appearance: alert, awake, oriented, no acute distress, pleasantENT: normal noseNeck: no JVDCardiovascular: CV assessment: regular rate and rhythmRespiratory: decreased breath sounds, no distressAbdomen: soft, non-tender, normal bowel sounds, no distentionGenitourinary: no flank pain, no urinary catheterUpper extremity: UE assessment: no edemaLower extremity: LE assessment: no edemaMusculoskeletal: normal inspectionNeuro/[employer]: alert, 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, normal speechSkin: poor skin turgorPsychiatry: normal affect, normal mood ResultsRadiology data:Recent Impressions:RADIOLOGY - XR CHEST 1 V 01/09 0949 Report Impression - Status: SIGNED Entered: 01/09/2022 1049 IMPRESSION: 1. Improved aeration bilateral. Residual interstitial and perihilar opacities compatible with edema. Inflammation in the differential. 2. Residual subsegmental atelectasis. 3. Residual small volume pleural effusions. Impression By: Catherine Carlisle M.D. Diagnosis, Assessment PlanProblem List/A P: 1. CAD (coronary artery disease) 2. Severe mitral regurgitation 3. Chronic a-fib 4. S/P CABG x 1 5. S/P MVR (mitral valve replacement) Free Text DxA P NotesFree Text DxA P Notes:Ms Giles is a 76 y/o female with PMHx of CAD, HLD, T2DM, RONA (CPAP at home), smoker, Crohn's disease, AF s/p ablation s/p PPM, and chronic lymphedema. She isrecovering from CABG and MVR. She is transferred to [facility] for inpatient rehabilitation. Cardiolgy is consulted for continuity of cardiac-related care. 1. CAD s/p CABG, MVR, and ILAA. On Plavix, aspirin, beta-delma, statin 2. Chronic AF s/p PPM/ablation. had ILAA during bypass no need for ACkeep K >4 and Mag above 2taper amiodarone prior to dischargeK replaced today 3. Chronic Diastolic CHF - euvolemicon PO Lasix 4. Hypertension - normotensivecontinue metoprolol tartrate 25 mg BID 5. HyperlipidemiaContinue statins. 6. MARCELLO - resolvedper Nephrology overall doing well in rehabcontinue supportive care at 1311 at [address] [facility] #:[id number] OF REPORTPRProgress [id number]:24:00G.[id number] e for patient boatBDRANHEJBKLDHZ4810-12-29S74:12:07 HC ACL 2022-01-09 11:28:00 [id number] KEkinKlteP88 tTliM5AmGTRyNVlScRmkdVP75422-48-95K95:28:[address] [facility] ([facility])Hospitalist Progress NoteREPORT#:[id number] REPORT STATUS: SignedDATE:01/09/22 TIME: 1128 PATIENT: KIAH GILES UNIT #: [id number]#: [id number] [address] AGE: 76 SEX: F ATTEND: Jesus Landry [facility] AUTHOR: Meryl Rosa MD * ALL edits or amendments must be made on the electronic/computer document * SubjectiveChief complaint:she is tire after therapy . she feel sob at night . Review of SystemsConstitutional:Reports: fatigue, generalized weakness. Denies: fever, lethargy. Respiratory:Reports: DOUGLASS (dyspnea on exertion), SOB. Denies: wheezing. Cardiovascular:Reports: DOUGLASS (dyspnea on exertion), edema. Denies: chest pain, orthopnea, palpitations. GI:Denies: abdominal pain, nausea, vomiting. Neuro:Denies: dizziness. Objective GeneralVS/I O:Vital Signs: Date Time Temp Pulse Resp B/P [...] scale Measurement Method PATIENT WEIGHT: Weight (lb): 253Weight (oz): 12.03Weight (kg): 115.100 Medications:Active Meds + DC'd Last 24 HrsAscorbic Acid (ASCORBIC ACID) 500 MG BID PO Potassium Chloride (POTASSIUM CHLORIDE 20MEQ TAB.ER) 40 MEQ BID MEALS PO Bisacodyl (DULCOLAX) 10 MG DAILY PRN PRN RECTAL Potassium Chloride (POTASSIUM CHLORIDE 20MEQ TAB.ER) 40 MEQ ONCE ONE PO (DC) Potassium Chloride (POTASSIUM CHLORIDE 20MEQ TAB.ER) 40 MEQ DAILY PRN PRN PO Acetazolamide (DIAMOX) 250 MG DAILY PO Aspirin (ASPIRIN) 81 MG DAILY PO Clopidogrel Bisulfate (Plavix) 75 MG DAILY PO Cyanocobalamin (Vitamin B-12 500 mcg tab) 500 MCG DAILY PO Ferrous Sulfate (FERROUS SULFATE) 325 MG DAILY PO Furosemide (LASIX) 40 MG DAILY PO Insulin Glargine (Lantus/Semglee) 30 UNIT DAILY SUBQ Metolazone (metOLazone) 5 MG DAILY PO (DC) Polyethylene Glycol (MIRALAX) 17 GM DAILY PO Sodium Chloride (SODIUM CHLORIDE) 10 ML BID IV Insulin Human Lispro (HUMALOG) 0 AC HS SUBQ Pantoprazole (PROTONIX) 40 MG DAILY@0600 PO Acetylcysteine (MUCOMYST FOR RT) 200 MG RTQ6H NEB Albuterol/Ipratropium (DUONEB) 3 ML RTQ6H NEB Glucagon (GLUCAGON) 1 MG ASDIR PRN IM Acetaminophen (TYLENOL) 650 MG Q4H PRN PRN PO Bisacodyl (DULCOLAX) 5 MG DAILY PRN PRN PO Dextrose/Water (DEXTROSE 10% IN WATER) 250 ML ASDIR PRN IV (CKD) Sodium Chloride (SODIUM CHLORIDE) 4 ML RTBID NEB Amiodarone HCl (CORDARONE) 200 MG Q12HR PO Atorvastatin Calcium (LIPITOR) 40 MG 2100 PO Docusate Sodium (COLACE) 100 MG BID PO Insulin Glargine (Lantus/Semglee) 20 UNIT BEDTIME SUBQ Melatonin (Melatonin) 3 MG BEDTIME PO Metoprolol Tartrate (LOPRESSOR) 25 MG Q12HR PO Ondansetron HCl (ZOFRAN ODT) 4 MG TID PRN PRN PO Sennosides (Senna Lax 8.6 MG TABLET) 17.2 MG BEDTIME PO Lactulose (LACTULOSE) 20 GM BID PRN PO Physical ExamGeneral appearance: alert, awake, oriented, no acute distressHead/Eyes: atraumatic, normal conjunctiva/sclera, normal eyelids/periorb.Neck: full range of motion, non-tenderCardiovascular: normal heart sounds, regular rate rhythmRespiratory: dyspneic, on oxygenAbdomen: non-tender, normal bowel sounds, soft, no distentionExtremities: edema, moves allNeuro/[employer]: alert, 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, CNII-XII intact, normal speech, no motor deficits, no sensory deficitsSkin: dry, intact ResultsFindings/Data:Laboratory Tests 01/09 01/09 01/09 01/09 01/08 1054 0546 0433 0433 2026 Chemistry Potassium (3.4 - 5.0 mEq/L) 3.0 L POC Glucose (70 - 110 MG/DL) 172 H 94 167 H B-Natriuretic Peptide (0 - 100 PG/ML) 232.0 H 01/08 1556 Chemistry POC Glucose (70 - 110 MG/DL) 153 H Diagnosis, Assessment PlanConsultants: cardiology, cardiovascular surgery, hospitalist, nephrology Free Text DxA P NotesFree text DxA P notes: general weakness CAD - post CABGCHFHTNDMHLDafib OSAmorbid obesity CAD -- cardiology consult CV surgeon [...] the patient in rehab . thank for consult at 1134 RPT #:[id number] OF REPORTPRProgress bdjq0212-09-36H57:28:00G.[id number] e for patient dobbSDKCNBJQBXOGFN3784-27-33L07:34:59 HC ACL 2022-01-09 07:36:00 [id number] 098t3M5fewWO go3i1Cz/IBhgtVk1MLMSAcI14542-31-54J64:36:[address] [facility] ([facility])Rehab Progress NoteREPORT#:[id number] REPORT STATUS: SignedDATE:01/09/22 TIME: 735 PATIENT: KIAH GILES UNIT #: [id number]#: [id number] [address] AGE: 76 SEX: F ATTEND: Jesus Landry [facility] AUTHOR: Jesus Landry MD * ALL edits or amendments must be made on the electronic/computer document * SubjectiveChief complaint:Rehab follow-upPatient had poor sleep due to shortness of breath, some nausea this morning treated with ZofranPatient CPAP not working last nightOut of bed and working with occupational therapyPatient on 3-4 L, sats 99%Edema BLE, tedsPatient denies nausea, vomiting, fever, chills, chest pain Objective GeneralVS:Vital Signs: Date Time Temp Pulse Resp B/P [...] 136/80 99.0 96 PATIENT WEIGHT: Weight (lb): 253Weight (oz): 12.03Weight (kg): 115.100 Medications:Active Meds + DC'd Last 24 HrsPotassium Chloride (POTASSIUM CHLORIDE 20MEQ TAB.ER) 40 MEQ ONCE ONE PO (DC) Potassium Chloride (POTASSIUM CHLORIDE 20MEQ TAB.ER) 40 MEQ DAILY PRN PRN PO Acetazolamide (DIAMOX) 250 MG DAILY PO Aspirin (ASPIRIN) 81 MG DAILY PO Clopidogrel Bisulfate (Plavix) 75 MG DAILY PO Cyanocobalamin (Vitamin B-12 500 mcg tab) 500 MCG DAILY PO Ferrous Sulfate (FERROUS SULFATE) 325 MG DAILY PO Furosemide (LASIX) 40 MG DAILY PO Insulin Glargine (Lantus/Semglee) 30 UNIT DAILY SUBQ Metolazone (metOLazone) 5 MG DAILY PO (DC) Polyethylene Glycol (MIRALAX) 17 GM DAILY PO Sodium Chloride (SODIUM CHLORIDE) 10 ML BID IV Insulin Human Lispro (HUMALOG) 0 AC HS SUBQ Pantoprazole (PROTONIX) 40 MG DAILY@0600 PO Acetylcysteine (MUCOMYST FOR RT) 200 MG RTQ6H NEB Albuterol/Ipratropium (DUONEB) 3 ML RTQ6H NEB Glucagon (GLUCAGON) 1 MG ASDIR PRN IM Acetaminophen (TYLENOL) 650 MG Q4H PRN PRN PO Bisacodyl (DULCOLAX) 5 MG DAILY PRN PRN PO Dextrose/Water (DEXTROSE 10% IN WATER) 250 ML ASDIR PRN IV (CKD) Sodium Chloride (SODIUM CHLORIDE) 4 ML RTBID NEB Amiodarone HCl (CORDARONE) 200 MG Q12HR PO Atorvastatin Calcium (LIPITOR) 40 MG 2100 PO Docusate Sodium (COLACE) 100 MG BID PO Insulin Glargine (Lantus/Semglee) 20 UNIT BEDTIME SUBQ Melatonin (Melatonin) 3 MG BEDTIME PO Metoprolol Tartrate (LOPRESSOR) 25 MG Q12HR PO Ondansetron HCl (ZOFRAN ODT) 4 MG TID PRN PRN PO Sennosides (Senna Lax 8.6 MG TABLET) 17.2 MG BEDTIME PO Lactulose (LACTULOSE) 20 GM BID PRN PO Functional ProgressFunctional progress: - - PT SPECIFIC EVAL AND [...] - Physical therapy intensity (minutes per day): 90 Physical therapy frequency (days per week): 5 Physical therapy duration (number of days): 12 Mode of therapy: Individual therapy - - PT DAILY NOTE - - PT daily note comment: S: Pt REPORTS SHE IS COLD AND TIRED. DTR REPORTS Pt NEEDS TO EITHER WEAR HER COMPRESSION GARMENTS OR SIT W/ LEGS ELEVATED, Pt NOT WANTING TO DO EITHER. O: Pt SEEN FOR INIITAL EVAL AND FUNCTIONAL MOBILITY. UP IN CHAIR. TRANSFERS SIT TO STAND TO W/C W/ CGA. TRANSFERS W/C TO TOILET W/ CGA, CUES FOR STERNAL PRECAUTIONS. TOILET W/ MAX A. TRANSFERS BACK W/ CGA. W/C MOBILTIY X 20' W/ SBA. SIT<->STAND FROM W/C [...] IMPAIRED ENDURANCE, LE EDMEA, AND NEW STERNAL PRECAUTIONS.SHE WILL BENEFIT FROM REHAB TO [facility] FOR SAFE RETURN HOME. P: CONT W/ PT Special rehabilitation precautions: Sternal Safety/fall Patient had a fall or an intercepted fall this shift: No Anticipated discharge equipment: RW/Front wheeled walker Barriers to discharge: DEFICITS W ADLS IMPAIRED ENDURANCE STERNAL PREACVUTIONS Strategies for D/C barriers: ADL TRAINING ENDURANCE TRAINING - - PT INTERDISCIPLINARY COLLABORATION - - Interdisciplinary team collaboration this shift: Rehab Nursing Focus area of collaboration this shift: JOCELYNE Results and continued need for team collaboration: JOCELYNE ALL WELL Treating therapist: [email or web address] Tamar Esquivel Credentials: PT,DPT - - PT DISCHARGE GOALS - - PT goal 1: Pt WILL BE MOD I W/ ALL ASPECTS OF BED MOBILITY, WHILE MAINTAINING STERNAL PRECAUTIONS PT goal 2: Pt WILL BE MOD I W/ ALL TRANSFERS WHILE COMPLIANT W/ STERNAL PRECAUTIONS PT goal 3: Pt WILL AMB 150' W/ RW MOD I PT goal 4: Pt WILL AMB UP/DOWN 1 STEP W/ RW MOD I PT goal 5: Pt/FAMILY WILL UNDERSTAND USE OF GAIT BELT TO LOWERPt TO FLOOR TO PREVENT INJURY - - PT CARE DISCHARGE GOALS - - CARE Rolling left and right discharge goal: Independent (6) CARE Sitting to lying discharge goal: Independent (6) CARE Lying to sitting on side of bed discharge goal: Independent (6) CARE Sitting to standing discharge goal: Independent (6) CARE Chair/bed to chair transfer discharge goal: Independent (6) CARE Car transfer discharge goal: Independent (6) CARE Walking 10 feet discharge goal: Independent (6) CARE Walking 50 feet with two turns discharge goal: Independent (6) CARE Walking 150 feet discharge goal: Independent (6) CARE Walking 10 feet on uneven surface discharge goal: Independent (6) CARE 1 step (curb) discharge goal: Independent (6) CARE 4 steps discharge goal: Partial/moderate asst (3) CARE 12 steps discharge goal: Not applicable CARE Picking up object discharge goal: Independent (6) CARE [place] 50 feet with two turns discharge goal: Supervise/touch asst(4) CARE [place] 150 feet discharge goal: Supervise/touch asst(4) Patients identified discharge goal: PT: Pt ABLE TO WALK - - PT CARE TOOL - - PT transfers CARE tool assessment for: Admission Patient rolled left and right: Yes Based on clinical judgement, pt unsafe to complete w/o tx intervention: No Rolled left and right independently: No Required setup or cleanup ONLY to roll left and right: No Required spv/verbal cues/CGA ONLY to roll left and right: Yes Admission rolling left and right CARE score: Supervision/touch (4) Patient performed sitting to lying: Yes Based on clinical judgement, pt unsafe to complete w/o tx intervention: No Performed sitting to lying independently: No Required setup or cleanup ONLY to go from sitting to lying: No Required spv/verbal cues/CGA ONLY to go from sitting to lying: No Completed at least 50% of effort to go from sitting to lying: Yes Admission sitting to lying CARE score: Partial/moderate (3) Patient performed lying to sitting on side of bed: Yes Based on clinical judgement, pt unsafe to complete w/o tx intervention: No Performed lying to sitting on side of bed independently: No Required setup or cleanup ONLY to go from lying to side of bed: No Required spv/verbal cues/CGA ONLY to go from lying to side of bed: Yes Admission lying to sitting CARE score: Supervision/touch (4) Patient performed sit tostand: Yes Based on clinical judgement, pt unsafe to complete w/o tx intervention: No Performed sit to stand independently: No Required setup or cleanup ONLY to go from sit tostand: No Required spv/verbal cues/CGA ONLY to go from sit tostand: Yes Admission sitting to standing CARE score: Supervision/touch (4) Patient transferred to/from bed to chair: Yes Based on clinical judgement, pt unsafe to complete w/o tx intervention: No Transferred to/from bed to chair independently: No Required setup or cleanup ONLY to transfer to/from bed to chair: No Required spv/verbal cues/CGA ONLY to transfer to/from bed to chair: Yes Admission bed to chair/WC transfer CARE score: Supervision/touch (4) Patient transferred in and out of car: No No transfer in and out of car due to the following reason: Environmental limitations Admission car transfer CARE score: Not attempted (10) Car transfer CARE comment: no car - - PT CARE WALKING - - PT mobility CARE tool assessment for: Admission Patient walked minimum of 10feet: Yes Based on clinical judgement, pt unsafe to complete w/o tx intervention: No Walked 10 feet independently: No Required setup or cleanup ONLY to walk 10feet: No Required spv/verbal cues/CGA ONLY to walk 10feet: Yes Admission walk 10 ft CARE score: Supervision/touch (4) Patient walked minimum of 50 feet AND made two turns: No Not walking 50 feet AND two turns for the following reason: Med cond/safety concern Admission walk 50 ft with two turns CARE score: Not attempted (88) Walked 50 feet AND two turns CARE comment: unable to complete Patient walked minimum of 150feet: No Not walking 150 feet for the following reason: Med cond/safety concern Admission walk 150 feet CARE score: Not attempted (88) Walked 150 feet CARE comment: unable Patient walked minimum of 10 feet on uneven surfaces: No Reason unable to walk 10 ft on uneven surface: Med cond/safety concern Admission walk 10 ft on uneven surface CARE score: Not attempted (88) Walked 10 ft on uneven surface CARE comment: unable Patient went up/down/over curb or 1step: No Reason unable to step over curb or one step: Med cond/safety concern Admission stepping over curb/step CARE score: Not attempted (88) Stepped over curb or up/down one step CARE comment: unable Patient picked up small object from floor from standing position: No Reason unable to director supply small object from standing: Med cond/safety concern Admission director supply object from standing CARE score: Not attempted (88) Picked up object from standing position CARE comment: unable - - PT CARE WHEELCHAIR - - Patient uses wheelchair or scooter: Yes Admission yarn dumper wheelchair CARE score: 1 Patient attempted WC 50 feet AND made two turns: Yes Based on clinical judgement, pt unsafe to complete w/o tx intervention: No WC 50 feet AND two turns independently: No Required setup or cleanup ONLY for WC 50 feet and two turns: No Required spv/verbal cues/CGA ONLY for WC 50 feet and two turns: No Patient completed at least 50% effort for WC 50 feet and two turns: Yes Admission WC 50 feet with 2 turns CARE score: Partial/moderate (3) Type of wheelchair/scooter used to go 50 feet: Manual Admission wheelchair type used for 50 feet: 1 Patient attempted WC 150 feet: Yes Based on clinical judgement, pt unsafe to complete w/o tx intervention: No WC 150 feet independently: No Required setup or cleanup ONLY for WC 150 feet: No Required supervision/verbal cues/CGA ONLY for WC 150 feet: No Patient completed at least 50% effort for WC 150 feet: No Patient completed less than 50% effort for WC 150 feet: Yes Admission WC 150 feet CARE score: Substantial/max (2) Type of wheelchair/scooter used to go 150 feet: Manual Admission wheelchair type used for 150 feet: 1 - - PT ASSESSMENT - - Past medical and surgical history: PMHX: macular degeneration, obesity, ROAN, hypertension, hyperlipidemia, diabetes, Crohn's disease, chronic atrial fibrillation, pacemaker placement, cardiac ablation x3, L arm fx in may, LYMPHEDEMA IN B LE H/O PRESENT ILLNESS: ADMIT W/ SOB, FOUND TO HAVE PERICARDITIS W/ SIGNIFICANT CAD. S/P MVR AND CABG X 1, PERICARDECTOMY Pre-hospital services utilized: None CARE Indoor mobility prior level of function: Independent (3) CARE Stairs prior level of function: Needed some help (2) PT prior level of function comment: Pt REPORTS SHE LIVES IN [facility] W/ DTR, BROKE ARM IN MAY AND HAS BEEN USING HEMIWALKER, HAS HOME O2 ON OCCASIONA NAD CPAP AT NIGHT. DOES NOT DRIVE OF COOK/CLEAN. HAS COMPRESSION GARMENTS FOR LYMPHEDEMA IN LEGS Prior device use: Hemiwalker Prior device use additional information: CANE Occupation/profession: Retired [employer] Education history: Some college Hobbies/leisure activities: READING, WATCHING TV Expected discharge physical layout: One story Shower [...] Within functional limits Sensation glove/stocking paresthesia: Within functional limits Light touch sensation LLE: Within functional limits Light touch sensation RLE: Within functional limits Sensation comment: APPEARS WNL - - MUSCULOSKELETAL - - Range of motion LLE: Within functional limits Range of motion RLE: Within functional limits Range of motion spine: Within functional limits Muscle strength LLE: Outside functional limits Muscle strength RLE: Outside functional limits Endurance/activity tolerance: Outside functional limits Musculoskeletal/endurance comment: ENDURANCE: LOW, 2L O2 SPO2 91-93% HR PACED AT 73-85 BPM STRENGHT: 4/ ALL MM GROUPS EXCEPT HIP FLEX AND HIP ABD 3+/5 - - BALANCE - - Balance static standing: Outside functional limits Balance dynamic standing: Outside functional limits Balance static sitting: Within functional limits Balance dynamic sitting: Within functional limits Balance function comment: STATIC STANDING W/ CGA DYN STANDING W/ B UE SUPPORT AND CGA Mobility performance: GAIT: 40' W/ RW AND CGA, 2L O2 W/C 20' W/ SBA, 2L PT evaluation results: Pt W/ DECLINE IN GAIT AND MOBILITY, Pt W/ DECREASED ENDURANCE, STERNAL PRECAUTIONS, LE EDEMA. - - ANTICIPATED DISCHARGE PLANNING - - Expected length of stay in days: 12 Barriers to discharge: Endurance Expected discharge destination: Home Anticipated services upon discharge: Occupational therapy Physical therapy Caregiver availability: Evenings only Caregiver can provide: Supervision only Evaluating therapist: AUGUSTINA1 Tamar Esquivel Credentials: PT,DPT Physical ExamGeneral appearance: alert, awake, no acute distressPsych: alert, normal affect, oriented x 3HEENT: anicteric, mucosal membranes moist, pupils reactive to light, sclera clearNeck: non-tender, supple, no JVDCardiovascular: regular rate rhythm, S1/S2, no murmurRespiratory: diminished breath sounds, on oxygen, clear bilaterallyAbdomen: obese, bowel sounds present, non-distended, soft, non-tenderSkin: dry, normal temperature, no rash, INCISIONS: CDI, sutures x 2.Musculoskeletal - general: Musculoskeletal - general: swelling (BLE-lymphedema), normal tone, calves NT,no cordsNeuro/CAPTAIN FIRE PREVENTION BUREAU: alert, 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, CNII-XII intact, no sensory deficits, MMT BUE 4/5, hips 3-/5 distal 4/5. ResultsFindings/Data:Laboratory Tests: 01/09 01/09 01/09 01/08 01/08 0546 0433 0433 2025 1556Chemistry Potassium (3.4 - 5.0 mEq/L) 3.0 L POC Glucose (70 - 110 MG/DL) 94 167 H 153 H B-Natriuretic Peptide (0 - 100 PG/ML) 232.0 H 01/08 1054 Chemistry POC Glucose (70 - 110 MG/DL) 195 H Radiology data:Recent Impressions:RADIOLOGY - XR CHEST 1 V 01/09 0949 Report Impression - Status: SIGNED Entered: 01/09/2022 1049 IMPRESSION: 1. Improved aeration bilateral. Residual interstitial and perihilar opacities compatible with edema. Inflammation in the differential. 2. Residual subsegmental atelectasis. 3. Residual small volume pleural effusions. Impression By: Catherine Carlisle M.D. Diagnosis, Assessment PlanProblem List/A P: 1. Critical illness myopathy 2. CAD (coronary artery disease) 3. Severe mitral regurgitation 4. Constrictive pericarditis 5. S/P CABG x 1 6. S/P MVR (mitral valve replacement) 7. Immunosuppressed status 8. RONA on CPAP 9. Chronic a-fib 10. Crohn disease 11. Morbid obesity 12. Respiratory failure with hypoxia 13. Acute blood loss anemia 14. Generalized weakness 15. Impaired functional mobility, balance, gait, and endurance Free Text A P:Assessment:Critical illness myopathyConstrictive pericarditisSevere mitral mhrhvcvfdlnwvPAN93/7: Status post CABG x1 (ROBERTS to LAD), ILAp, xnzrzllmxheenv45/7: S/p MVR1: Echo-EF 55-59%, normally functioning MV bioprosthesisChronic AF, s/p PPM/ablation-rate controlled-pacedVolume overload-BLE edemaHistory of lymphedemaGeneralized weaknessDeconditioningAcute blood loss anemiaHypertensionMorbid obesityHLD Crohn's diseaseSmokerHypoxic respiratory failureHypokalemia/hypomagnesemia secondary to diureticsAKI resolvedSignificant impaired ADLs, mobility, gait, balance and endurance Plan:-Comprehensive inpatient rehabilitation with physical, occupational and speech therapy 3 hours a day for 5 to 6 days per week-05/10 rehabilitation physician supervision-05/10 rehabilitation nursing care-Case management for safe discharge planning-Rehab MD to monitor comorbidities and functional progress.-Decubitus prevention-protective hydrating lotion-turn every 2 cgudf-yekxtuz-Ytxzf program-MiraLAX and Senokot-Nutrition, monitor the patient's p.o. intake, check albumin 3.5 and prealbumin,dietary consult, protein supplements.-Strict fall and safety precaution-DVT prophylaxis-SCDs/antiembolism stockings-GI exskulzsugg-Mzlllksz-Fktxiyfd control-continue insulin-blood sugars good-as per qubglijm-ANV-rplsuwth-nephrology following-Respiratory insufficiency-wean O2-postop pulmonary protocol, encourage I-S, deep cough and breathing exercises, slowly improving-CAD s/p CABG, MVR, and ILAA-on DAPT post-op care per CTS-Acute/chr AF s/p PPM/ablation. Rate controlled, paced rhythm-had ILAA during bypass, no need for AC-as per cardiology-Volume btcbihht-tqqzmffq-pm diuretics, strict I's and O's Daily-HTN. BP stable-on hwmmfdfiph-THF-Ja statins.-Crohn's disease. Per IM.-Early mobilization-OOB to chair-Work on bed mobility, transfer training, ADLs, pre-gait and gait exercises as tolerable. -Increase endurance and strength-Pain hsiwfhfcav-Bsmzquwndje-ucxunusefh, CVS, medicine, nephrology-Labs reviewed-WBC normal, hemoglobin improved 8.7, platelets normal, potassium 3.0, creatinine 1.1, magnesium 1.83, BNP 232-replete zxkwlsajs21/28: SOB-chest t-ivh-upfkduuk aeration bilaterally. Residual interstitial andperihilar opacities. Subsegmental atelectasis. Residual small volume pleural effusions.-Patient CPAP not working-RT to eval and try and fix-Encourage I-S and ambulation-BLE edema-ANA PAULA hose and elevation, exercise, diuretics-Diuresis as per giujtpaupb-Uprrix-itfkyydf ferrous sulfate, B12, vitamin C monitor H H-Monitor telemetry-DC if okay with kusqfjthpp-Ayeysw-Zhkhjx-Continue current medications-Sternal incision intact and healing. Continue sternal precautions for 6 weeks-Advance therapies as tolerable-Patient has impaired gait, ADLs, endurance and balance with BLE edema and new sternal precautions. Patient will continue to benefit from inpatient rehab to maximize mobility for safe return home. Progress: MAX A. TRANSFERS BACK W/ CGA. W/C MOBILTIY X 20' W/ SBA. SIT<->STAND FROM W/C X 3 REPS W/ CGA. GAIT W/ RW 20', 40' W/ RW AND SBA. TRANSFERS TO BED W/ MIN A, SIT TO SUPINE W/ MOD A AT LEGS. RETURNS TO SITTING W/ CGA. SIT TO STAND TO CHAIR W/ CGA. PM RPlease see team note.Plan and goals discussed with the patient. I agree with the teams findingELOS: [12 days]LH-ytxt-lycap with daughter-HH versus outpatient cardiac rehabilitationDME-pending TT 35 min>50% with discussing with patient about SOB, therapies, low potassium, rehab plan of care, goals, expectations, needs, and medical issues, examination. MAR and EMR reviewed. All Questions answered.Orders: Procedure Date/time Status _RT: Non-Invasive Ventilation 01/09 1105 Active XR CHEST 1V 01/09 0949 Complete NEB TREATMENT SUBSQ 01/09 0850 Active NEB TREATMENT SUBSQ 01/09 0337 Active OXYGEN PER HOUR 01/09 0300 Complete CPAP/BIPAP ADULT/CHILD 01/09 0300 Complete NEB TREATMENT SUBSQ 01/08 2359 Complete NEB TREATMENT SUBSQ 01/08 8231 Active Consultants: cardiology, cardiovascular surgery, hospitalist, nephrologyPlan discussed with: patient, nurse, interdisc care teamRehab attestation:Face to face exam completed. Treatment plan discussed with patient. Meets continued stay criteria. Agree with interdisciplinary treatment plan. at 1114 RPT #:[id number] OF REPORTPRProgress mqfb5698-21-23C11:36:00G.[id number] e for patient yytoKTQCULTOUNOYPC7423-48-32Q88:14:56 HC ACL 2022-01-08 19:41:00 [id number]+p5/A+WuCBFKpFWQErh bS4vvLcM0aBZ aNmBfrCYLbbzvB5a1CDTs8xb0797-17-21I03:41:00 [facility])Nephrology Consultation NoteREPORT#:[id number] REPORT STATUS: SignedDATE:01/08/22 TIME: 1940 PATIENT: KIAH GILES UNIT #: [id number]#: [id number] [address] AGE: 76 SEX: F ATTEND: Jesus Landry [facility] AUTHOR: Suki Fuchs MD * ALL edits or amendments must be made on the electronic/computer document * History of Present IllnessRequesting clinician: Dr Gudino for consult:HypervolemiaChief complaint:CAD, S/P CABGHPI:This is a 76-year-old female who has past medical history of hypertension, diabetes, coronary artery disease, atrial fibrillation who presented with worsening shortness of breath and on further work-up was 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 She was withnormal kidney function prior to surgery and after her surgery she began to develop oliguria. Her procedure was done without any complications but after her surgery she did require pressor support for hypotension and she was intubated for respiratory acidosis and hypoxia and she was treated with vancomycin for infection treatment. She recovered kidney function and has been on diuretics for hypervolemia which has also improved significantly. She was seen in rehab today and was doing well, eating well. History - Adult longitudinalPast medical history:Reports: Atrial fibrillation, Diabetes mellitus, Hypertension, Dyslipidemia. Denies: Kidney disease/stones. Additional medical history:Clot degeneration Obstructive sleep apnea Chron's disease LymphedemaPast surgical history:Reports: Pacemaker (SJM). Additional family history:Reviewed and noncontributoryAlcohol use: Denies EtOH useDrug use: Denies recreational drugsSmoking status for patients 13 years old or older: Never SmokerAllergies:Coded Allergies:ciprofloxacin (From CIPRO) (Severe, JOINT PAIN 01/07/22)morphine (Severe, RASH, SWELLING 01/07/22) Ambulatory status: Walker, Wheelchair Review of SystemsConstitutional:Denies: chills, fever. Skin:Denies: rash, swelling. Allergy/Immun:Denies: itching, rhinorrhea. Eyes:Denies: redness, discharge. ENT:Denies: sore throat, throat pain. Respiratory:Denies: DOUGLASS (dyspnea on exertion), non productive cough, parox nocturnal dyspnea. Cardiovascular:Denies: DOUGLASS (dyspnea on exertion), edema. GI:Denies: abdominal pain, anorexia. :Denies: dysuria, flank pain. Musculoskeletal:Denies: arthritis, extremity pain. Objective GeneralVS/I O:Vital Signs: Date Time Temp Pulse Resp B/P B/P Pulse O2 O2 Flow FiO2 Mean Ox Delivery Rate 01/08 1935 [...] scale Measurement Method PATIENT WEIGHT: Weight (lb): 248Weight (oz): 7.38Weight (kg): 112.700 Physical ExamGeneral appearance: alert, awake, orientedHead/eyes: atraumatic, EOMIENT: moist mucous membranes, normal noseNeck: no JVD, no lymphadenopathyCardiovascular: normal heart sounds, regular rate and rhythmRespiratory: aerating well, clear to auscultationAbdomen: non-tender, softGenitourinary: no bladder distention, no flank painExtremities: pitting edema, no gangrene, no swelling Diagnosis, Assessment PlanConsultants: cardiology, cardiovascular surgery, hospitalist, nephrology Free Text DxA P NotesFree text DxA P notes:This is a 76-year-old female known to have hypertension, diabetes, atrial fibrillation, s/p permanent pacemaker and history of ablation presenting with shortness of breath and 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 Nephrology is following for: 1. Acute kidney injury: Most likely it is prerenal (cardiorenal), she has been hypotensive postoperatively with requirement for pressor support and inotropic support. Resolved with stable hemodynamics 2. Hypervolemia:Improved, on low dose lasix. 3. Hypokalemia: Plan to replace nd monitor closely. 4. Metabolic alkalosis secondary to diuretics. Plan to monitoe and give diamox if worsens. at 2146 RPT #:[id number] OF REPORTLDNyqlqgrqxfhq3271-59-47F61:41:00G.[id number] for patient eefkOQCDLJEGECCWWD0704-88-43S61:46:23 [facility] 2022-01-08 12:00:00 [id number] V7dqcsRnkvSM dQpsDzXvbzLJa+7aBC9P2WND4124-54-39H42:00:00 [facility] ProgREPORT#:[id number] REPORT STATUS: SignedDATE:01/08/22 TIME: 1200 PATIENT: KIAH GILES UNIT #: [id number]#: [id number] ROOM[facility]BED: [facility]8-1DOB: [birth year] AGE: 76 SEX: F ATTEND: Jesus Landry [facility] AUTHOR: Kena Macedo VISUAL EFFECTS ARTIST * ALL edits or amendments must be made on the electronic/computer document * GeneralStatus post:1. Mitral valve replacement (31 Magna valve).2. Coronary artery bypass graft surgery x1 (ROBERTS to LAD).3. Isolation of left atrial appendage.4. Pericardiectomy. SubjectiveChief complaint:Follow-up CABG and MVR, isolation of left atrial appendage and pericardiectomy Review of SystemsConstitutional:Denies: fever, malaise. Allergy/Immun:Denies: allergic reaction. Respiratory:Denies: SOB. GI:Denies: abdominal pain, nausea, vomiting. Objective GeneralVS/I OLast Documented: Result Date Time O2 Delivery Nasal [...] scale Measurement Method PATIENT WEIGHT: Weight (lb): 248Weight (oz): 7.38Weight (kg): 112.700 Physical ExamGeneral appearance: obese, alert, oriented, no respiratory distressHEENT: anictericNeck: supple/no meningismusCardiovascular: normal heart sounds, regular rate rhythmRespiratory: aerating well, symmetric expansion, no distressAbdomen: soft, non-tender, no distentionExtremities: moves allNeuro/CAPTAIN FIRE PREVENTION BUREAU: alert, 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, normal speech, no motor deficitsPsychiatry: normal affect, normal mood Current MedicationsMedications:Active Meds + DC'd Last 24 HrsPolyethylene Glycol (MIRALAX) 17 GM DAILY PO (CAN) Magnesium Oxide (MAG-OX 400) 400 MG BEDTIME PO (CAN) Potassium Chloride (POTASSIUM CHLORIDE 20MEQ TAB.ER) 40 MEQ ONCE ONE PO (UNV) Potassium Chloride (POTASSIUM CHLORIDE 20MEQ TAB.ER) 40 MEQ DAILY PRN PRN PO Acetazolamide (DIAMOX) 250 MG DAILY PO Aspirin (ASPIRIN) 81 MG DAILY PO Clopidogrel Bisulfate (Plavix) 75 MG DAILY PO Cyanocobalamin (Vitamin B-12 500 mcg tab) 500 MCG DAILY PO Ferrous Sulfate (FERROUS SULFATE) 325 MG DAILY PO Furosemide (LASIX) 40 MG DAILY PO Insulin [...] Acetylcysteine (MUCOMYST FOR RT) 200 MG RTQ6H NEB Albuterol/Ipratropium (DUONEB) 3 ML RTQ6H NEB Glucagon (GLUCAGON) 1 MG ASDIR PRN IM Acetaminophen (TYLENOL) 650 MG Q4H PRN PRN PO Bisacodyl (DULCOLAX) 5 MG DAILY PRN PRN PO Dextrose/Water (DEXTROSE 10% IN WATER) 250 ML ASDIR PRN IV (CKD) Lactulose (LACTULOSE) 20 GM BID PRN PRN PO (DC) Sodium Chloride (SODIUM CHLORIDE) 4 ML RTBID NEB Amiodarone HCl (CORDARONE) 200 MG Q12HR PO Atorvastatin Calcium (LIPITOR) 40 MG 2100 PO Docusate Sodium (COLACE) 100 MG BID PO Insulin Glargine (Lantus/Semglee) 20 UNIT BEDTIME SUBQ Melatonin (Melatonin) 3 MG BEDTIME PO Metoprolol Tartrate (LOPRESSOR) 25 MG Q12HR PO Ondansetron HCl (ZOFRAN ODT) 4 MG TID PRN PRN PO Sennosides (Senna Lax 8.6 MG TABLET) 17.2 MG BEDTIME PO Lactulose (LACTULOSE) 20 GM BID PRN PO ResultsFindings/Data:Laboratory Tests 01/08 01/08 01/08 01/08 01/07 1054 [...] (Auto) (14.0 - 32.0 %) 8.3 L Colquitt % (Auto) (4.8 - 9.0 %) 11.5 H Eos % (Auto) (0.3 - 3.7 %) 2.3 Baso % (Auto) (0.0 - 2.0 %) 0.7 Neut # (Auto) (2.0 - 7.6 x10 3/uL) 4.24 Lymph # (Auto) (1.0 - 3.8 x10 3/uL) 0.46 L [place]itt # (Auto) (0.1 - 0.8 x10 3/uL) 0.64 Eos # (Auto) (0.0 - 0.2 x10 3/uL) 0.13 Baso # (Auto) (0.0 - 0.2 x10 3/uL) 0.04 Abs Immat Gran (auto) (0.00 - 0.03 x10 3/uL) 0.05 H Add Manual Diff NO Immature Gran % (0.0 - 2.0 %) 0.9 Nucleated RBC % (0 - 0 %) 0.0 Nucleated RBCs # (Man) (0.0 - 0.1 x10 3/uL) 0.00 Diagnosis, Assessment PlanHospital course to date:This very pleasant 76-year-old female, from [facility], with past medical history of macular degeneration, obesity, obstructive sleep apnea (CPAP at home), former smoker, hypertension, hyperlipidemia, diabetes, Crohn's disease, chronic atrial fibrillation status post 3 ablations in the past (on Xarelto), pacemaker placement who had a recent admission to the hospital with heart failure symptoms. She has been admitted to the hospital today for elective heartcath. Coronary angiogram showed severe multivessel coronary artery disease not suitable for percutaneous intervention. s/p 1. Mitral valve replacement (31 Magna valve).2. Coronary artery bypass graft surgery x1 (ROBERTS to LAD).3. Isolation of left atrial appendage.4. Pericardiectomy. 01/08 Patient seen at rehabShe is alert and oriented, no respiratory distress on nasal cannulaWean O2 as toleratedSternal incision intact and healing. Continue sternal precautions for 6 weeksEncourage I-S and ambulationDiuresis by nephrology. Replace potassiumContinue rehab Consultants: cardiology, cardiovascular surgery, hospitalist, nephrology at 1212 at 1031 RPT #:[id number] OF REPORTPRProgress [id number]:00:00G.[id number] oskar for patient zaewPCILYFVWNKCYXZ9885-23-71T95:12:43 HC ACL 2022-01-08 11:49:00 [id number]/UfIvIZnJ0ODgO gM01md8C87eh q64OgRSqpHIab7Zg7oDlQnP37574-47-43R29:49:[address] [facility] ([facility])Cardiology ConsultationREPORT#:[id number] REPORT STATUS: SignedDATE:01/08/22 TIME: 1149 PATIENT: KIAH GILES UNIT #: [id number]#: [id number] [address] [birth year] AGE: 76 SEX: F ATTEND: Jesus Landry AUTHOR: Isabella Clemens * ALL edits or amendments must be made on the electronic/computer document * History of Present Illness HPIRequesting Clinician: Dr. Gudino for consult:Continuity of cardiac-related careChief complaint:NonePCP:PCP: Dong Fuchs MD NYHA Classification: IIHPI:Ms Giles is a 76 y/o female with PMHx of CAD, HLD, T2DM, RONA (CPAP at home), smoker, Crohn's disease, AF s/p ablation s/p PPM, and chronic lymphedema. She isrecovering from CABG and MVR. She is transferred to [facility] for inpatient rehabilitation. Cardiolgy is consulted for continuity of cardiac-related care. History - Adult longitudinalPast medical history:Reports: Atrial fibrillation, Diabetes mellitus, Hypertension, Dyslipidemia. Denies: Kidney disease/stones. Additional medical history:Clot degeneration Obstructive sleep apnea Chron's diseasePast surgical history:Reports: Pacemaker (SJM). Additional family history:Reviewed and noncontributoryAlcohol use: Denies EtOH useDrug use: Denies recreational drugsSmoking status for patients 13 years old or older: Never SmokerAllergies:Coded Allergies:ciprofloxacin (From CIPRO) (Severe, JOINT PAIN 01/07/22)morphine (Severe, RASH, SWELLING 01/07/22) Ambulatory status: Walker, Wheelchair Review of SystemsConstitutional:Denies: fatigue, generalized weakness. Respiratory:Denies: SOB. Cardiovascular:Denies: chest pain. GI:Denies: anorexia, nausea, vomiting. Neuro:Denies: weakness. Psych:Denies: anxiety. Objective GeneralVS/I O:Vital Signs: Date Time Temp Pulse Resp B/P B/P Pulse O2 O2 Flow FiO2 Mean Ox Delivery Rate 01/08 1120 Nasal 3 cannula 01/08 1056 36.5 71 16 136/80 99.0 96 01/08 0636 36.6 72 16 145/81 102.8 100 01/08 0525 36.6 84 16 140/72 94.9 97 01/08 0400 74 96 40 01/08 0018 72 98 40 01/07 2253 70 16 134/75 94.8 98 01/07 2127 76 96 40 01/07 2127 96 BiPAP 40 01/07 1947 Nasal 3 cannula 01/07 193 36.5 70 18 137/81 99.8 94 Room air 24 hour I O ending at 0700: 01/08 0700 01/07 1900 Intake Total Output Total Balance Number 0 Incontinent Voids Number Voids 2 Patient 112.7 kg Weight Weight Bed scale Measurement Method PATIENT WEIGHT: Weight (lb): 248Weight (oz): 7.38Weight (kg): 112.700 Medications:Active Meds + DC'd Last 24 HrsPolyethylene Glycol (MIRALAX) 17 GM DAILY PO (CAN) Magnesium Oxide (MAG-OX 400) 400 MG BEDTIME PO (CAN) Potassium Chloride (POTASSIUM CHLORIDE 20MEQ TAB.ER) 40 MEQ DAILY PRN PRN PO Acetazolamide (DIAMOX) 250 MG DAILY PO Aspirin (ASPIRIN) 81 MG DAILY PO Clopidogrel Bisulfate (Plavix) 75 MG DAILY PO Cyanocobalamin (Vitamin B-12 500 mcg tab) 500 MCG DAILY PO Ferrous Sulfate (FERROUS SULFATE) 325 MG DAILY PO Furosemide (LASIX) 40 MG DAILY PO Insulin [...] Acetylcysteine (MUCOMYST FOR RT) 200 MG RTQ6H NEB Albuterol/Ipratropium (DUONEB) 3 ML RTQ6H NEB Glucagon (GLUCAGON) 1 MG ASDIR PRN IM Acetaminophen (TYLENOL) 650 MG Q4H PRN PRN PO Bisacodyl (DULCOLAX) 5 MG DAILY PRN PRN PO Dextrose/Water (DEXTROSE 10% IN WATER) 250 ML ASDIR PRN IV (CKD) Lactulose (LACTULOSE) 20 GM BID PRN PRN PO (DC) Sodium Chloride (SODIUM CHLORIDE) 4 ML RTBID NEB Amiodarone HCl (CORDARONE) 200 MG Q12HR PO Atorvastatin Calcium (LIPITOR) 40 MG 2100 PO Docusate Sodium (COLACE) 100 MG BID PO Insulin Glargine (Lantus/Semglee) 20 UNIT BEDTIME SUBQ Melatonin (Melatonin) 3 MG BEDTIME PO Metoprolol Tartrate (LOPRESSOR) 25 MG Q12HR PO Ondansetron HCl (ZOFRAN ODT) 4 MG TID PRN PRN PO Sennosides (Senna Lax 8.6 MG TABLET) 17.2 MG BEDTIME PO Lactulose (LACTULOSE) 20 GM BID PRN PO Physical ExamGeneral appearance: alert, awake, oriented, no acute distressENT: normal noseNeck: no JVDCardiovascular: CV assessment: regular rate and rhythmRespiratory: decreased breath sounds, no distressAbdomen: soft, non-tender, normal bowel sounds, no distentionGenitourinary: no flank pain, no urinary catheterUpper extremity: UE assessment: no edemaLower extremity: LE assessment: no edemaMusculoskeletal: normal inspectionNeuro/CAPTAIN FIRE PREVENTION BUREAU: alert, 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, normal speechSkin: poor skin turgorPsychiatry: normal affect, normal mood ResultsFindings/Data:Laboratory Tests 01/08 01/08 01/08 01/08 01/07 1054 [...] (Auto) (14.0 - 32.0 %) 8.3 L Colquitt % (Auto) (4.8 - 9.0 %) 11.5 H Eos % (Auto) (0.3 - 3.7 %) 2.3 Baso % (Auto) (0.0 - 2.0 %) 0.7 Neut # (Auto) (2.0 - 7.6 x10 3/uL) 4.24 Lymph # (Auto) (1.0 - 3.8 x10 3/uL) 0.46 L [place] # (Auto) (0.1 - 0.8 x10 3/uL) 0.64 Eos # (Auto) (0.0 - 0.2 x10 3/uL) 0.13 Baso # (Auto) (0.0 - 0.2 x10 3/uL) 0.04 Abs Immat Gran (auto) (0.00 - 0.03 x10 3/uL) 0.05 H Add Manual Diff NO Immature Gran % (0.0 - 2.0 %) 0.9 Nucleated RBC % (0 - 0 %) 0.0 Nucleated RBCs # (Man) (0.0 - 0.1 x10 3/uL) 0.00 Laboratory Tests 01/08 0510 Chemistry Magnesium (1.80 - 2.40 mg/dL) 1.83 Results: labs reviewed, vital signs reviewedTelemetry Interpretation:paced Diagnosis, Assessment PlanProblem List/A P: 1. CAD (coronary artery disease) 2. Severe mitral regurgitation 3. Chronic a-fib 4. S/P CABG x 1 5. S/P MVR (mitral valve replacement) Plan discussed with: patient, daughter Free Text DxA P NotesFree Text DxA P Notes:Ms Giles is a 76 y/o female with PMHx of CAD, HLD, T2DM, RONA (CPAP at home), smoker, Crohn's disease, AF s/p ablation s/p PPM, and chronic lymphedema. She isrecovering from CABG and MVR. She is transferred to [facility] for inpatient rehabilitation. Cardiolgy is consulted for continuity of cardiac-related care. 1. CAD s/p CABG, MVR, and ILAA. On Plavix, aspirin, beta-delma, statin 2. Chronic AF s/p PPM/ablation. had ILAA during bypass no need for ACkeep K >4 and Mag above 2taper amiodarone prior to dischargereplace low potassium with KCL 40 mEq PO x1 3. Chronic Diastolic CHF - euvolemicon PO Lasix 4. Hypertension - normotensivecontinue metoprolol tartrate 25 mg BID 5. HyperlipidemiaContinue statins. 6. MARCELLO per Nephrology Appreciate the referral. at 1200 at 1549 [facility] #:[id number] OF REPORTIUDinzceefflcf3240-84-83G28:49:00G.[id number] for patient ikfkGFILXAHXENIKDX2271-87-00A22:00:30 HCACL 2022-01-08 09:26:00 [id number]+1KJTeaJyMKCPUl5JEktYKFO hH0/+OF4n71M +oS9j9FDllCL2Vz74jufo1i/8336-70-50Q75:26:[address] [facility] ([facility])Adult General ConsultationREPORT#:[id number] REPORT STATUS: SignedDATE:01/08/22 TIME: 925 PATIENT: KIAH GILES UNIT #: [id number]#: [id number] [address] [birth year] AGE: 76 SEX: F ATTEND: Jesus Landry [facility] AUTHOR: Meryl Rosa MD * ALL edits or amendments must be made on the electronic/computer document * History of Present IllnessReason for consult:medical management Free Text HPI NotesFree Text HPI Notes: 76 years old female with PMH of CAD, afib , DM, HTN, HLD ,RONA was transferred tothe rehab yesterday from hospital . she had MVR (31 Magna valve), CABG x 1 (ROBERTS-LAD), ILAA and pericardectomy . she is weak . she also complaint of sob ane edema . no fever no cough no cp no nausea no vomiting no dizziness . History - Adult longitudinalPast medical history:Reports: Atrial fibrillation, Diabetes mellitus, Hypertension, Dyslipidemia. Denies: Kidney disease/stones. Additional medical history:Clot degeneration Obstructive sleep apnea Chron's diseasePast surgical history:Reports: Pacemaker (SJM). Additional family history:Reviewed and noncontributoryAlcohol use: Denies EtOH useDrug use: Denies recreational drugsSmoking status for patients 13 years old or older: Never SmokerAllergies:Coded Allergies:ciprofloxacin (From CIPRO) (Severe, JOINT PAIN 01/07/22)morphine (Severe, RASH, SWELLING 01/07/22) Review of SystemsConstitutional:fatigue, generalized weakness. Denies: fever, lethargy. Respiratory:Reports: SOB. Denies: non productive cough, wheezing. Cardiovascular:DOUGLASS (dyspnea on exertion), edema. Denies: chest pain, orthopnea, palpitations, parox nocturnal dyspnea. GI:Denies: abdominal pain, nausea, vomiting. :Denies: dysuria, flank pain, frequency. Neuro:Denies: dizziness, headache. ObjectiveVS/I O:Last Documented: Result Date Time Pulse Ox 100 [...] scale Measurement Method PATIENT WEIGHT: Weight (lb): 248Weight (oz): 7.38Weight (kg): 112.700 General appearance: alert, awake, oriented, no acute distressHead/Eyes: atraumatic, normocephalic, normal conjunctiva/sclera, normal eyelids/periorb.Neck: full range of motion, no JVDCardiovascular: irregular rhythm, irregularly irregular, normal heart soundsRespiratory: aerating well, clear to auscultationAbdomen: soft, non-tender, no distentionExtremities: edema, moves all, no calf tendernessNeuro/[employer]: alert, 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, CNII-XII grossly intact, normal speech, no motordeficits, no sensory deficitsSkin: dry, intact ResultsFindings/Data:Laboratory Tests: 01/08 01/08 01/08 01/07 0524 0510 0510 1941 Chemistry Sodium (134 - 147 mEq/L) 142 [...] (Auto) (14.0 - 32.0 %) 8.3 L [place] % (Auto) (4.8 - 9.0 %) 11.5 H Eos % (Auto) (0.3 - 3.7 %) 2.3 Baso % (Auto) (0.0 - 2.0 %) 0.7 Neut # (Auto) (2.0 - 7.6 x10 3/uL) 4.24 Lymph # (Auto) (1.0 - 3.8 x10 3/uL) 0.46 L [place] # (Auto) (0.1 - 0.8 x10 3/uL) 0.64 Eos # (Auto) (0.0 - 0.2 x10 3/uL) 0.13 Baso # (Auto) (0.0 - 0.2 x10 3/uL) 0.04 Abs Immat Gran (auto) (0.00 - 0.03 x10 3/uL) 0.05 H Add Manual Diff NO Immature Gran % (0.0 - 2.0 %) 0.9 Nucleated RBC % (0 - 0 %) 0.0 Nucleated RBCs # (Man) (0.0 - 0.1 x10 3/uL) 0.00 Microbiology: Date/Time Procedure - Status Source Growth 01/08 0510 MRSA DNA Surveillance Screen - RECD NASAL 01/07 1827 MRSA DNA Surveillance Screen - ORD NASAL Diagnosis, Assessment PlanOrders: Procedure Date/time Status _RT: Non-Invasive Ventilation 01/07 2007 Active Consultants: cardiology, cardiovascular surgery, hospitalist, nephrology Free Text DxA P NotesFree Text DxA P Notes: general weakness CAD - post CABGCHFHTNDMHLDafib OSAmorbid obesity CAD -- cardiology consult CV surgeon consult CABG --post procedure ASA/lipitor Echocardiogram showed EF 55 to 59% edema --lasix /zaroxolyn -- monitor renal function weakness --PT/OT as rehab afib -- rate control -- xarelto/amiodarone /metoprolol HTN-- metoprolol/norvasc DM-- on lantus -- sliding scale HLD-- on lipitor RONA--cpap as nigth DVTP -- xarelto will follow the patient in rehab . thank for consult at 1652 RPT #:[id number] OF REPORTPQGaniwlwkgnoc2627-77-79V29:26:00G.[id number] for patient kjwoSTQRANNSYYGKTN0684-20-30I90:53:23 [facility] 2022-01-08 07:29:00 [id number]tPm LeB3VYJvcYHl pKbCGf6N3Rd6I8UM0r3hi3Fm5408-87-00G79:29:[address] [facility] ([facility])Rehab Indiv Overall POCREPORT#:[id number] REPORT STATUS: SignedDATE:01/08/22 TIME: 728 PATIENT: KIAH GILES UNIT #: [id number]#: [id number] [facility]DOB: [birth year] AGE: 76 SEX: F ATTEND: Jesus Landry MDADM AUTHOR: Jesus Landry MD * ALL edits or amendments must be made on the electronic/computer document * Individualized Overall POC HPIImpairment group: neurologic conditions NOTE Document ONLY ONE Impairment Group Neurologic conditions: neuromuscular disordersEtiologic diagnosis:Critical illness myopathy Medical Expected CourseExpected DC destination:Expected DC destination: Home Problem List/A P: 1. [...] Generalized weakness 15. Impaired functional mobility, balance, gait, and endurance Medical prognosis: goodMedical prognosis details: pt motivation, family/caregiver support, D/C planMed prognosis comment:GoodExpected course of Tx:-Comprehensive inpatient rehabilitation with physical, occupational and speech therapy 3 hours a day for 5 to 6 days per week-05/10 rehabilitation physician supervision-05/10 rehabilitation nursing care.-Case management for safe discharge planning.-Rehab MD to monitor comorbidities and functional progress.-Decubitus prevention-protective hydrating lotion-turn every 2 cexji-fgnrvpv-Dangr program-Nutrition, monitor the patient's p.o. intake, check albumin and prealbumin, dietary consult, protein supplements.-Strict fall and safety precaution-DVT xdmdkwyecdc-CCSv-ZA nvkcoimvqpi-Kqzpgerd-Rdnqgcix control-continue insulin-monitor blood sugars-as per twnfgofs-ZQN-cvsjhfft-Respiratory insufficiency-wean O2-postop pulmonary protocol, encourage I-S, deep cough and breathing exercises, slowly improve-CAD s/p CABG, MVR, and ILAA-on DAPT post-op care per CTS-Acute/chr AF s/p PPM/ablation. Rate controlled, paced rhythm-had ILAA during bypass, no need for AC-as per cardiology-Volume oszrcvht-ldushene-oa diuretics, strict I's and O's Daily-HTN. BP stable-on ffzgqobkek-SFC-Wr statins.-Crohn's disease. Per IM.-Early mobilization-OOB to chair-Work on bed mobility, transfer training, ADLs, pre-gait and gait exercises as tolerable. -Increase endurance and strength-Pain mecdjtjvqo-Qymlybxuftf-etjfytseed, CVS, medicine, nephrology-Labs reviewed--Anemia-continue ferrous sulfate, B12, monitor H H-Monitor telemetry-DC if okay with cardiology-Continue current medication-Strict sternal precautions-ELOS: 12 days-GOALS: Modified-Patient medically ready to start IRF Functional Expected CourseFunctional expected course:The data set between the solid lines has been imported from multidisciplinary team documentation: ANTICIPATED SERVICES IN ACUTE INPATIENT REHAB: DISCIPLINE Physical Therapy Occupational Therapy Speech TherapyINTENSITY (minutes/day) 90 90FREQUENCY (days/week) 5 5DURATION (# of days) 12 12 EXPECTED FUNCTIONAL [...] up Independent (6) object discharge goal: CARE [place] 50 feet Supervise/touch asst (4) with two turns discharge goal: C[facility] [place] 150 Supervise/touch asst (4) feet discharge goal: [...] Bowel function goal: PT WILL MAINTAIN NORMAL BOWEL FUNCTION IN REHAB STAYBladder function goal: PT WILL MAINTAIN NORMAL BLADDER FUNCITON IN REHAB STAY ELOS Attestation:Based upon the review of clinical staff recommendations of frequency, duration and intensity and individual assessment of this patient, I estimate the following: See H P. Estimated length of stay:12 days MD Review/RecommendationAttestation:Based upon my physical evaluation of the patient and input from the interdisciplinary team members I have developed this interdisciplinary overall plan of care and determined the admission to the IRF is reasonable and necessary.The IOPOC will be updated weekly and modified under my direction. Patient can be expected to actively participate in, and benefit from, an intensive rehab therapy program whose intensity is not provided in lower levels of care.Complex acute rehab needs: Custom therapy tx plan, Mgt of complex Co-morb, Multiple consulting MDs, Med adjustment/mgmt., New medical diagnosis, New medical complication, Postsurgery req mgt/care, Nutritional compromise, Hospitalist consult, VTE Risk, STERNAL PRECAUTIONS at 0737 RPT #:[id number] OF REPORTCLClinical syuo3506-89-80O79:29:00G.[id number] e for patient zehnICFPBATAXFHALT2098-37-00X89:38:26 [facility] 2022-01-08 05:52:00 [id number]/znenIsNIhVk u3FgSU6BthQg luhO1OPcITyspXFxbur8glCM9479-34-02T00:52:[address] [facility] ([facility])Rehab History PhysicalREPORT#:[id number] REPORT STATUS: SignedDATE:01/08/22 TIME: 551 PATIENT: KIAH GILES UNIT #: [id number]#: [id number] [address] [birth year] AGE: 76 SEX: F ATTEND: Jesus Landry AUTHOR: Jesus Landry MD * ALL edits or amendments must be made on the electronic/computer document * HPI HPIChief complaint:Generalized weaknessPCP:Dong Fuchs MDReferring physician:DR. 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 She was withnormal kidney function prior to surgery and after her surgery she began to develop oliguria. Her procedure was done without any complications but after her surgery she did require pressor support for hypotension and she was intubated for respiratory acidosis and hypoxia and she was treated with vancomycin for infection treatment. When she was seen this morning she continued to have hypotension and her heart rate was paced by her permanent pacemaker and her urine output was 20 to 30/h. Her family at bedside denied anyhistory of kidney disease, kidney stone, chronic NSAID use or any urinary complaints. They also endorse that her blood pressure and diabetes were mostly controlled. Pt underwent MVR, CABG x 1, ILLAA, pericardectomy 12/19/[address] Romero. Pt developed critical illness myopathy and is progressing slowly with therapy d/t weakness, self care deficit, decreased endurance and balance, and decreased functional mobility. Pt requiring acute inpt rehab for multidisciplinary team of nursing, therapy, and physicians. Pt is willing and able to participate in 3 hr/day inpt rehab to return home safely. Pt's prior level of function was Mod I and sometimes used RW. Patient doing better. Patient denies any nausea, vomiting, fever or chills. No chest pain. Patient has DOUGLASS and some mild SOB at rest. She is on 3 L NC. She uses CPAP at night. Patient has some incisional chest pain. Daughter is at bedside. Preadmission screen was reviewed. Patient admitted to IRF.Changes since Pre Admit ScreenNonePremorbid participation:Prior Level of Function: ASSIST FOR BATHING; MOD I-IND FOR ALL OTHER ADLS.Home Environment: Single Story House Patient Lives With: DaughterImpairment group: neurologic conditions NOTE Document ONLY ONE Impairment Group Neurologic conditions: neuromuscular disordersEtiologic diagnosis:Critical illness myopathy HistoryPreadmit diagnostic/labs: Date: 01/05/22 01/04/22 01/06/22 WBC: 7.0 7.3 5.7 HGB: 8.3 8.1 8.1 HCT: 26.4 24.0 25.6 Ca: 9.4 9.8 9.4 Na: 145 144 143 K+: 3.3 3.5 3.2 Glu: 259 103 115 M.91 2.02 BUN: 26 26 29 Creat: 1.0 0.9 1.1 Tot protein: Alb: PTT: PT: INR: PLT: 230 255 244 Cultures: 12/18/21 URINE YEAST 12/17/21 MRSA NEGATIVEImagin01/04/22 CXR IMPRESSION: Mild worsening right basilar opacities. Otherwise, stable exam. 01/03/22 CXR IMPRESSION: 1.Unchanged multifocal patchy bilateral airspace disease in the left lung base and right mid and lower lung. 2. Unchanged small bilateral pleural effusions. 01/02/22 CXR IMPRESSION: No acute findings. Unchanged study. 12/31/21 CXR IMPRESSION: 1. Stable pulmonary opacities with multifocal consolidation and or atelectasis. 2. Stable pleural effusions. 3. Stable postoperative cardiomediastinal silhouette. 12/30/21 IMPRESSION: 1. Bilateral multifocal ground-glass pulmonary opacities with associated interstitial septal thickening. Edema and [...] pericardial fluid. Small volume anterior mediastinal hematoma/seroma. 12/23/21 ABD XRAY IMPRESSION: 1. A nasogastric tube terminates overlying the stomach. 2. Dilated small bowel loops in the left lower quadrant MISCELLANEOUS U/S IMPRESSION: Minimal left and mild right pleural effusions. 12/21/21 RETROPERITONEUM U/S IMPRESSION: Limited exam. No sonographic abnormality of the kidneys. 12/20/21 CXR IMPRESSION: Stable radiographic appearance of the chest. 12/17/21 DOPPLER U/S IMPRESSION: Greate 01/06/22 doppler u/s IMPRESSION: No evidence of deep vein thrombosis. r saphenous vein is patent. Vein mapping as described. 12/17/21 CAROTID DOPPLER IMPRESSION: No flow-limiting proximal internal carotid arterial stenosis. 12/17/[address] IMPRESSION: 1. There is a 2 lead [...] pulmonary atelectasis but no evidence of pneumonia. 12/12/21 CXR IMPRESSION: Cardiomegaly with minimal central venous congestion. Past medical history:Reports: Atrial fibrillation, Diabetes mellitus, Hypertension, Dyslipidemia. Denies: Kidney disease/stones. Additional medical history:Clot degenerationObstructive sleep apneaChron's diseaseLymphedemaPast surgical history:Reports: Pacemaker (SJM). Additional family history:Reviewed and noncontributoryAlcohol use: Denies EtOH useDrug use: Denies recreational drugsSmoking status for patients 13 years old or older: Never SmokerMedications:Home Medications:FUROSEMIDE (LASIX) 40 MG PO DAILY METOLAZONE (ZAROXOLYN) 5 MG PO DAILY acetaZOLAMIDE (DIAMOX) 250 MG PO DAILY DOCUSATE SODIUM (COLACE 50 MG/5 ML) 100 MG PO BID PANTOPRAZOLE DR (PROTONIX) 40 MG PO DAILY [...] Active Meds + DC'd Last 24 Hrs-medications reconciledAcetazolamide (DIAMOX) 250 MG DAILY PO Furosemide (LASIX) 40 MG DAILY PO Potassium Chloride (POTASSIUM CHLORIDE 20MEQ TAB.ER) 20 MEQ Q2H PO (DC) Metoprolol Tartrate (LOPRESSOR) 25 MG Q12HR PO Acetazolamide (DIAMOX) 500 MG Q24H IV (DC) Furosemide (LASIX 40 mg/4 mL INJECTION) 40 MG DAILY IV (DC) Sterile Water (WATER FOR INJECTION) 5 ML ASDIR PRN IV Potassium Chloride (POTASSIUM CHLORIDE 20MEQ TAB.ER) 40 MEQ DAILY PRN PRN PO Insulin Glargine (Lantus/Semglee) 30 UNIT DAILY SUBQ Insulin Glargine (Lantus/Semglee) 20 UNIT BEDTIME SUBQ Insulin Human Lispro (HUMALOG) 0 AC HS SUBQ Dextrose/Water (DEXTROSE 10% IN WATER) 125 ML ASDIR PRN IV (CKD) Dextrose/Water (DEXTROSE 10% IN WATER) 250 ML ASDIR PRN IV (CKD) Glucagon (GLUCAGON) 1 MG ASDIR PRN IM Amiodarone HCl (CORDARONE) 200 MG BID PO Sterile Water (WATER FOR INJECTION) 5 ML ASDIR PRN IV Sterile Water (WATER FOR INJECTION) 5 ML ASDIR PRN IV Sodium Chloride (SODIUM CHLORIDE) 4 ML RTBID NEB Melatonin (Melatonin) 3 MG BEDTIME PO Sodium Chloride (SODIUM CHLORIDE) 10 ML BID IV Sodium Chloride (SODIUM CHLORIDE) 10 ML ASDIR PRN IV Pantoprazole (PROTONIX) 40 MG DAILY PO Dexmedetomidine/Sodium Chloride (PRECEDEX 1000MCG/NS 250ML) 250 ML ASDIR IV Bisacodyl (DULCOLAX) 10 MG DAILY PRN PRN RECTAL Lactulose (LACTULOSE) 20 GM DAILY PRN PRN PO Magnesium Hydroxide (MILK OF MAGNESIA) 30 ML DAILY PRN PRN PO Aspirin (ASPIRIN) 81 MG DAILY PO Clopidogrel Bisulfate (Plavix) 75 MG DAILY PO Cyanocobalamin (Vitamin B-12 500 mcg tab) 500 MCG DAILY PO Ferrous Sulfate (FERROUS SULFATE) 325 MG DAILY PO Metolazone (metOLazone) 5 MG DAILY PO Polyethylene Glycol (MIRALAX) 17 GM DAILY PO Atorvastatin Calcium (LIPITOR) 40 MG 2100 PO Docusate Sodium (DOCUSATE SODIUM) 100 MG BID PO Senna (SENOKOT) 17.6 MG BEDTIME PO Acetaminophen (TYLENOL) 650 MG Q4H PRN PRN PO Acetylcysteine (MUCOMYST FOR RT) 200 MG RTQ6H NEB Albuterol/Ipratropium (DUONEB) 3 ML RTQ6H NEB Bisacodyl (DULCOLAX) 10 MG ONCE PRN RECTAL Dopamine HCl/Dextrose (DOPamine 400MG/D5W 250ML) 250 ML ASDIR IV Milrinone Lactate/Dextrose (MILRINONE 20MG/D5W 100ML) 100 ML ASDIR IV (CKD) Vasopressin (VASOSTRICT 20 Unit/NS 100ML) 100 ML ASDIR IV (CKD) Acetaminophen (TYLENOL) 650 MG Q4H PRN PRN RECTAL Calcium Chloride (CALCIUM CHLORIDE) 1 GM ASDIR PRN IV Magnesium Sulfate (MAGNESIUM SULFATE 4GM/SWFI 100ML) 100 ML ASDIR PRN IV Magnesium Sulfate (MAGNESIUM SULFATE 2GM/SWFI 50ML) 50 ML ASDIR PRN IV Magnesium Sulfate/Dextrose (MAGNESIUM SULFATE 1GM/D5W 100ML) 100 ML ASDIR PRN IV Nitroglycerin/Dextrose (NITROGLYCERIN 50,000MCG/D5W 250ML) 250 ML ASDIR IV Norepinephrine Bitartrate (NOREPINEPHRINE 8 MG/NS 250 ML) 250 ML TITRATE IV Potassium Chloride (KCL 20MEQ/SWFI 100ML) 100 ML ASDIR PRN IV Sodium Bicarbonate (SODIUM BICARBONATE) 50 MEQ ASDIR PRN IV Ondansetron HCl (ZOFRAN) 4 MG Q6H PRN PRN IV Allergies:Coded Allergies:ciprofloxacin (From CIPRO) (Severe, JOINT PAIN 01/07/22)morphine (Severe, RASH, SWELLING 01/07/22) CHUNG CHILEL comments:14 point review of system was obtained. All system reviewed are either negativeor noncontributory or in the body of the history and physical. Objective Physical ExamVS:Last Documented: Result Date Time Pulse Ox 100 01/09 636 B/P 145/81 01/09 636 B/P Mean 102.8 01/09 636 Temp 97.9 01/09 636 Pulse 72 01/09 636 Resp 16 01/09 636 FiO2 40 01/08 0400 O2 Delivery BiPAP 01/07 2127 O2 Flow Rate 3 01/07 1947 PATIENT WEIGHT: Weight (lb): 248Weight (oz): 7.38Weight (kg): 112.700 General appearance: obese, alert, awake, oriented, no acute distressPsych: alert, normal affect, oriented x 3HEENT: anicteric, mucosal membranes moist, pupils reactive to light, sclera clearNeck: non-tender, supple, no JVDCardiovascular: regular rate rhythm, S1/S2, no murmurRespiratory: diminished breath sounds, on oxygen, clear bilaterallyAbdomen: bowel sounds present, non-distended, soft, non-tenderSkin: dry, normal temperature, no rash, INCISIONS: CDI, sutures x 2.Musculoskeletal - general: Musculoskeletal - general: swelling (BLE-lymphedema), normal tone, calves NT,no cordsNeuro/[employer]: alert, 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, CNII-XII intact, no sensory deficits, MMT BUE 4/5, hips 3-/5 distal 4/5. ResultsFindings/Data:Laboratory Tests: 01/08 Chemistry POC Glucose (70 - 110 MG/DL) 117 H 168 H Microbiology:01/08 510 NASAL: MRSA DNA Surveillance Screen - [id number] NASAL: MRSA DNA Surveillance Screen - ORD [...] % (Auto) (14.0 - 32.0 %) 8.3 [place] % (Auto) (4.8 - 9.0 %) 11.5 Eos % (Auto) (0.3 - 3.7 %) 2.3 Baso % (Auto) (0.0 - 2.0 %) 0.7 Neut # (Auto) (2.0 - 7.6 x10 3/uL) 4.24 Lymph # (Auto) (1.0 - 3.8 x10 3/uL) 0.46 [place] # (Auto) (0.1 - 0.8 x10 3/uL) 0.64 Eos # (Auto) (0.0 - 0.2 x10 3/uL) 0.13 Baso # (Auto) (0.0 - 0.2 x10 3/uL) 0.04 Abs Immat Gran (auto) (0.00 - 0.03 x10 3/uL) 0.05 Add Manual Diff NO Immature Gran % (0.0 - 2.0 %) 0.9 Nucleated RBC % (0 - 0 %) 0.0 Nucleated RBCs # (Man) (0.0 - 0.1 x10 3/uL) 0.00 Diagnosis, Assessment Plan Diagnosis, Assessment PlanProblem List/A P: 1. Critical illness myopathy 2. CAD (coronary artery disease) 3. Severe mitral regurgitation 4. Constrictive pericarditis 5. S/P CABG x 1 6. S/P MVR (mitral valve replacement) 7. Immunosuppressed status 8. RONA on CPAP 9. Chronic a-fib 10. Crohn disease 11. Morbid obesity 12. Respiratory failure with hypoxia 13. Acute blood loss anemia 14. Generalized weakness 15. Impaired functional mobility, balance, gait, and endurance Free Text A P:Assessment:Critical illness myopathyConstrictive pericarditisSevere mitral xownzgpupkshvNMM42/7: Status post CABG x1 (ROBERTS to LAD), ILAp, /7: S/p MVR1: Echo-EF 55-59%, normally functioning MV bioprosthesisChronic AF, s/p PPM/ablation-rate controlled-pacedVolume overload-improvedLymphedemaGeneralized weaknessDeconditioningAcute blood loss anemiaHypertensionMorbid obesityOSAHLD Crohn's diseaseHypoxic respiratory failureHypokalemia/hypomagnesemia secondary to diureticsAKI resolvedSignificant impaired ADLs, mobility, gait, balance and endurance Plan:-Comprehensive inpatient rehabilitation with physical, occupational and speech therapy 3 hours a day for 5 to 6 days per week-05/10 rehabilitation physician supervision-05/10 rehabilitation nursing care.-Case management for safe discharge planning.-Rehab MD to monitor comorbidities and functional progress.-Decubitus prevention-protective hydrating lotion-turn every 2 nvnpl-vpqdsrl-Papdp program-Nutrition, monitor the patient's p.o. intake, check albumin 3.5 and prealbumin,dietary consult, protein supplements.-Strict fall and safety precaution-DVT bjfdwemabii-CLPv-UZ xzvpzwjwgde-Uhtczscw-Wwpswtlu control-continue insulin-monitor blood sugars-as per ummgfuuf-SBG-aunemzdp-Respiratory insufficiency-wean O2-postop pulmonary protocol, encourage I-S, deep cough and breathing exercises, CPAP at night, slowly improving-CAD s/p CABG, MVR, and ILAA-on DAPT post-op care per CTS-Acute/chr AF s/p PPM/ablation. Rate controlled, paced rhythm-had ILAA during bypass, no need for AC-as per cardiology-Volume sxmnfbzq-ymohtxpc-jb diuretics, strict I's and O's Daily-HTN. BP stable-on gabhrippfs-JEW-Vi statins.-Crohn's disease. Per IM.-Early mobilization-OOB to chair-Work on bed mobility, transfer training, ADLs, pre-gait and gait exercises as tolerable. -Increase endurance and strength-Pain yybzklagoc-Xfcoghbyqle-railwbgvdz, CVS, medicine, nephrology-Labs reviewed-WBC normal, hemoglobin improved 8.7, platelets normal, potassium 3.0, creatinine 1.1, magnesium 1.83-replete ycaoiehpl-Nyuliq-shotprwg ferrous sulfate, B12, monitor H H-Monitor fmphrmzzv-woomb-JQ telemetry-Continue current medication-Strict sternal precautions-DOUGLASS and mild SOB at rest, work on improving endurance-ELOS: 12 days-GOALS: Modified-Patient medically ready to start IRF PM RPlease see team note.Plan and goals discussed with the patient. I agree with the teams findingELOS: [12 days]AL-nmbu-hedrb with daughter-HH versus outpatient cardiac rehabilitationDME-pending TT 68 min>50% with discussing with patient and daughter about IRF ADMIT, rehab plan of care, goals, expectations, needs, and medical issues, examination. MAR and EMR reviewed. All Questions answered.Review of comorbidities:CAD, MITRAL VALVE REPLACEMENT 12/23, CORONARY ARTERY BYPASS, Pericardiectomy., OBESITY, RONA, HTN, HLD, DIABETES, CROHN'S DISEASE, CHRONIC A FIB, PACEMAKER, ANEMIA, HYPOXIC RESPIRATORY FAILURE, on BiPapCompare to PAS:POST ADMISSION PHYSICIAN EVALUATION ASSESSMENT: 1. Comparison of findings with the preadmission assessment are compatible with the post admission physician evaluation.2. Review of the patient's prior and current medical and functional conditions have been extensively reviewed and documented in this H P, and discussed with the referring physicians, patient and family. At this time, there has been no change in the patient's current medical or functional conditions and plans to go ahead with rehab are to begin today.Estimated length of stay:12 daysOrders: Procedure Date/time Status Nutritional Supplements 01/08 1318 [...] HOUR 01/07 2200 Complete CPAP/BIPAP ADULT/CHILD 01/07 220 Complete Consultants: cardiology, cardiovascular surgery, hospitalist, nephrologyPlan discussed with: patient, nurse, interdisc care teamTime spent: Time spent on patient care (minutes): 69 >50% spent on counseling/coordination of care: yes Code Status/Resusc. DiscussionResuscitation discussion: Discussed with: patientCode status: full code Acute Rehab Attestation NOTE Attestation is for MD onlyRehab MD attestation:Based upon my evaluation, the patient's medical management and rehabilitation needs require an inpatient stay and close physician involvement. Patient can be expected to actively participate in, and benefit from, an intensive rehab therapy program whose intensity is not provided in lower levels of care. Significant barriers that can only be addressed in an acute inpatient rehab program, including, but not limited to:Date of onset: 12/17/21Current surgery date and type: MITRAL VALVE REPLACEMENT 12/23 CORONARY ARTERY BYPASS X1 12/23 PERICARDIECTOMY 12/23/21 ARTERIAL LINE PLACEMENT 12/24Active comorbid conditions: CAD, MITRAL VALVE REPLACEMENT 12/23, CORONARY ARTERYBYPASS, Pericardiectomy., OBESITY, RONA, HTN, HLD, DIABETES, CROHN'S DISEASE, CHRONIC A FIB, PACEMAKER, ANEMIA, HYPOXIC RESPIRATORY FAILURE, on BiPapPast medical and surgical history: 1. Mitral valve replacement (31 Magna valve). 2. Coronary artery bypass graft surgery x1 (ROBERTS to LAD). 3. Isolation of left atrial appendage. 4. Pericardiectomy. MILD RIGHT PLEURAL EFFUSION macular degeneration, obesity, RONA, hypertension, hyperlipidemia, diabetes, Crohn's disease, chronic atrial fibrillation, pacemaker placement, cardiac ablation x3 who had a cardiac cath revealing multivessel CAD. Clot degeneration Obstructive sleep apnea Chron's disease ANEMIAHad major surgery within 100 days of admission: YesRisk for medical/clinical complications: Anemia, Arrhythmia, Aspiration, BP fluctuation, Blood sugar fluctuation, Cardiac instability, Constipation, DVT, Depression, Electrolyte imbalance, Hypoxia, Incisional dehiscence, Infection, Injury d/t falls, Nutritional compromise, Pain, Renal insuff/failure, Skin breakdown, Urinary retention, Respiratory insufficiency.Complex acute rehab needs: Custom therapy tx plan, Mgt of complex Co-morb, Multiple consulting MDs, New medical diagnosis, Hospitalist consult at 1353 RPT #:[id number] OF REPORTHPHistory and physical [id number]:52:00G.[id number] vailable for patient [id number]:54:23 [facility] 2022-01-07 20:55:00 [id number] 4UbromDscAeG [id number]14:55:00 [facility])Nephrology Progress NoteREPORT#:[id number] REPORT STATUS: SignedDATE:01/07/22 TIME: 2054 PATIENT: KIAH GILES UNIT #: [id number]#: [id number] [address] [birth year] AGE: 76 SEX: F ATTEND: Jeffry More AUTHOR: Suki Fuchs MD * ALL edits or amendments must be made on the electronic/computer document * SubjectiveChief complaint:chest painHPI:This is a 76-year-old female who has past medical history of hypertension, diabetes, coronary artery disease, atrial fibrillation who presented with worsening shortness of breath and on further work-up was 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 She was withnormal kidney function prior to surgery and after her surgery she began to develop oliguria. Her procedure was done without any complications but after her surgery she did require pressor support for hypotension and she was intubated for respiratory acidosis and hypoxia and she was treated with vancomycin for infection treatment. When she was seen this morning she continued to have hypotension and her heart rate was paced by her permanent pacemaker and her urine output was 20 to 30/h. Her family at bedside denied anyhistory of kidney disease, kidney stone, chronic NSAID use or any urinary complaints. They also endorse that her blood pressure and diabetes were mostly controlled. 01/07Looking comfortable, tolerating orally.Walking with no difficulty. Objective GeneralVS/I O:Vital Signs: Date Time Temp Pulse Resp B/P B/P Pulse O2 O2 Flow FiO2 Mean Ox Delivery Rate 01/07 1749 [...] 2336 36.7 73 18 138/90 106.2 97 01/06 2119 36.8 71 22 140/76 97.4 100 01/06 2100 Nasal 3 40 cannula 24 hour I O ending at 0700: 01/07 0700 01/06 1900 Intake Total 450 800 Output Total 750 1890 Balance -300 -1090 Intake, Oral 450 800 Number Voids 1 Output, Urine 750 1890 Patient 120.4 kg Weight Weight Bed scale Measurement Method PATIENT WEIGHT: Weight (lb): 265Weight (oz): 6.98Weight (kg): 120.400 Physical ExamGeneral appearance: alert, awake, orientedHead/eyes: atraumatic, normocephalicENT: moist mucous membranes, normal noseNeck: no JVD, no lymphadenopathyCardiovascular: normal heart sounds, regular rate and rhythmRespiratory: aerating well, clear to auscultationAbdomen: soft, no pulsatile massGenitourinary: urinary catheterExtremities: no gangrene, no swelling Treatment Prophylaxis Treatment ProphylaxisDrain(s)/tube(s): Drain(s)/tube(s): chest (x3) Diagnosis, Assessment PlanFree Text A P:This is a 76-year-old female known to have hypertension, diabetes, atrial fibrillation, s/p permanent pacemaker and history of ablation presenting with shortness of breath and 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 Nephrology is following for: 1. Acute kidney injury: Most likely it is prerenal (cardiorenal), she has been hypotensive postoperatively with requirement for pressor support and inotropic support. Plan is to increase inotropic support or pressor support to bring meanarterial pressure above 65 and give albumin with Lasix to see if it helps him diurese. If he does not respond to higher dose Lasix with albumin then I will consider starting him on CRRT to prevent hyper volemia. 2. Hypervolemia: Plan is to give Lasix and if he does not respond to start him on CRRT for extra fluid removal. 3. His electrolytes were all reviewed to be in normal range plan was to monitorand replace as needed. 4. He was receiving vancomycin so plan was to monitor vancomycin trough levels to prevent ATN. 5/ Metabolic alkalosis secondary to diuretics : Plan to give acetazoleamide if worsening. . . Acute kidney injury: Resolved, she is responding to lasix. 2. Hypervolemia: Plan to continue lasix as tolerated.Today she was on low dose daily lasix. 3. Hypokalemia/hypomagnesemia:secondary to diuretics, plan was to monitor and replace as needed. 4. Metabolic alkalosis secondary to diuretics : acetazoleamide lcqwhcolv0001/03. Acute kidney injury: Resolved, she is responding to lasix. 2. Hypervolemia: Plan to continue lasix as tolerated.Today she was on low dose daily lasix. 3. Hypokalemia/hypomagnesemia:secondary to diuretics, plan was to monitor and replace as needed. 4. Metabolic alkalosis secondary to diuretics : acetazoleamide continued.Plan was to continue same as patient stable from volume and electrolyte standpoint. . Acute kidney injury: Resolved, she is responding to lasix. 2. Hypervolemia: Plan to continue lasix as tolerated.Today she was on low dose daily lasix. 3. Hypokalemia/hypomagnesemia:secondary to diuretics, plan was to monitor and replace as needed. 4. Metabolic alkalosis secondary to diuretics : acetazoleamide continued.Plan was to continue same as patient stable from volume and electrolyte standpoint. . Acute kidney injury: Resolved, she is responding to lasix. 2. Hypervolemia: Plan to continue lasix as tolerated.Today she was on low dose daily lasix. 3. Hypokalemia/hypomagnesemia:secondary to diuretics, plan was to monitor and replace as needed. 4. Metabolic alkalosis secondary to diuretics : acetazoleamide continued.Plan was to continue same as patient stable from volume and electrolyte standpoint. . Acute kidney injury: Resolved, she is responding to lasix. 2. Hypervolemia: Plan to continue lasix as tolerated.Today she was on low dose daily lasix.Switched IV to PO as she should respond to both at current volume status. 3. Hypokalemia/hypomagnesemia:secondary to diuretics, plan was to monitor and replace as needed. 4. Metabolic alkalosis secondary to diuretics : acetazoleamide continued. 01/07 1. Acute kidney injury: Resolved, she is responding to lasix. 2. Hypervolemia: Plan to continue lasix as tolerated.Today she was on low dose daily lasix.Switched IV to PO as she should respond to both at current volume status. 3. Hypokalemia/hypomagnesemia:secondary to diuretics, plan was to monitor and replace as needed. 4. Metabolic alkalosis secondary to diuretics : acetazoleamide continued. Consultants: cardiology, cardiovascular surgery, critical/assembler unit at [address] [place] [address] #:[id number] OF REPORTPRProgress [id number]:55:00G.[id number] e for patient tpztFZSMWDAEPSZYQS0901-19-28V90:57:58 ACL 2022-01-07 18:31:00 [id number]+HSmdmci [id number] 3hyML6Re//RVJSeXFtD2v7NZ9417-03-78G54:31:00 [facility] ProgREPORT#:[id number] REPORT STATUS: SignedDATE:01/07/22 TIME: 183 PATIENT: KIAH GILES UNIT #: [id number]#: [id number] ROOM/BED: 3363-1DOB: [birth year] AGE: 76 SEX: F ATTEND: Jeffry More [facility] AUTHOR: Kena Macedo VISUAL EFFECTS ARTIST * ALL edits or amendments must be made on the electronic/computer document * GeneralStatus post:1. Mitral valve replacement (31 Magna valve). 2. Coronary artery bypass graft surgery x1 (ROBERTS to LAD). 3. Isolation of left atrial appendage. 4. Pericardiectomy. SubjectiveChief complaint:Follow up MVR Review of SystemsConstitutional:Denies: fever, malaise. Allergy/Immun:Denies: allergic reaction. ENT:Denies: sore throat. Respiratory:Denies: SOB. GI:Denies: abdominal pain. Heme:Denies: bleeding. Neuro:Denies: focal weakness, headache. All systems rev neg: except as marked Objective GeneralVS/I OLast Documented: Result Date Time Pulse Ox 98 01/07 1749 B/P 126/76 01/07 1749 B/P Mean 92.4 01/07 1749 O2 Delivery Nasal cannula 01/07 1749 Temp 98.1 01/07 1749 Pulse 76 01/07 174 Resp 19 01/07 1749 FiO2 32 01/07 1530 O2 Flow Rate 3 01/07 1530 24 hour I O ending at 0700: 01/07 0700 01/06 1900 Intake Total 450 800 Output Total 750 1890 Balance -300 -1090 Intake, Oral 450 800 Number Voids 1 Output, Urine 750 1890 Patient 265 lb Weight Weight Bed scale Measurement Method PATIENT WEIGHT: Weight (lb): 265Weight (oz): 6.98Weight (kg): 120.400 Physical ExamGeneral appearance: alert, oriented, mental status normal, no respiratory distressWound/incision: Location:sternal Site condition: edges approximated, incision intact, no drainageHEENT: anictericNeck: supple/no meningismusCardiovascular: normal heart sounds, regular rate rhythmRespiratory: aerating well, symmetric expansion, no distressAbdomen: soft, non-tenderExtremities: moves allNeuro/[employer]: alert, 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, normal speechSkin: dry, intact, normal temperaturePsychiatry: normal affect, normal mood Current MedicationsMedications:Active Meds + DC'd Last 24 HrsAcetazolamide (DIAMOX) 250 MG DAILY PO Furosemide (LASIX) 40 MG DAILY PO Metoprolol Tartrate (LOPRESSOR) 25 MG Q12HR PO Sterile Water (WATER FOR INJECTION) 5 ML ASDIR PRN IV Potassium Chloride (POTASSIUM CHLORIDE 20MEQ TAB.ER) 40 MEQ DAILY PRN PRN PO Insulin Glargine (Lantus/Semglee) 30 UNIT DAILY SUBQ Insulin Glargine (Lantus/Semglee) 20 UNIT BEDTIME SUBQ Insulin Human Lispro (HUMALOG) 0 AC HS SUBQ Dextrose/Water (DEXTROSE 10% IN WATER) 125 ML ASDIR PRN IV (CKD) Dextrose/Water (DEXTROSE 10% IN WATER) 250 ML ASDIR PRN IV (CKD) Glucagon (GLUCAGON) 1 MG ASDIR PRN IM Amiodarone HCl (CORDARONE) 200 MG BID PO Sterile Water (WATER FOR INJECTION) 5 ML ASDIR PRN IV Sterile Water (WATER FOR INJECTION) 5 ML ASDIR PRN IV Sodium Chloride (SODIUM CHLORIDE) 4 ML RTBID NEB Melatonin (Melatonin) 3 MG BEDTIME PO Sodium Chloride (SODIUM CHLORIDE) 10 ML BID IV Sodium Chloride (SODIUM CHLORIDE) 10 ML ASDIR PRN IV Pantoprazole (PROTONIX) 40 MG DAILY PO Dexmedetomidine/Sodium Chloride (PRECEDEX 1000MCG/NS 250ML) 250 ML ASDIR IV Bisacodyl (DULCOLAX) 10 MG DAILY PRN PRN RECTAL Lactulose (LACTULOSE) 20 GM DAILY PRN PRN PO Magnesium Hydroxide (MILK OF MAGNESIA) 30 ML DAILY PRN PRN PO Aspirin (ASPIRIN) 81 MG DAILY PO Clopidogrel Bisulfate (Plavix) 75 MG DAILY PO Cyanocobalamin (Vitamin B-12 500 mcg tab) 500 MCG DAILY PO Ferrous Sulfate (FERROUS SULFATE) 325 MG DAILY PO Metolazone (metOLazone) 5 MG DAILY PO Polyethylene Glycol (MIRALAX) 17 GM DAILY PO Atorvastatin Calcium (LIPITOR) 40 MG 2100 PO Docusate Sodium (DOCUSATE SODIUM) 100 MG BID PO Senna (SENOKOT) 17.6 MG BEDTIME PO Acetaminophen (TYLENOL) 650 MG Q4H PRN PRN PO Acetylcysteine (MUCOMYST FOR RT) 200 MG RTQ6H NEB Albuterol/Ipratropium (DUONEB) 3 ML RTQ6H NEB Bisacodyl (DULCOLAX) 10 MG ONCE PRN RECTAL Dopamine HCl/Dextrose (DOPamine 400MG/D5W 250ML) 250 ML ASDIR IV Milrinone Lactate/Dextrose (MILRINONE 20MG/D5W 100ML) 100 ML ASDIR IV (CKD) Vasopressin (VASOSTRICT 20 Unit/NS 100ML) 100 ML ASDIR IV (CKD) Acetaminophen (TYLENOL) 650 MG Q4H PRN PRN RECTAL Calcium Chloride (CALCIUM CHLORIDE) 1 GM ASDIR PRN IV Magnesium Sulfate (MAGNESIUM SULFATE 4GM/SWFI 100ML) 100 ML ASDIR PRN IV Magnesium Sulfate (MAGNESIUM SULFATE 2GM/SWFI 50ML) 50 ML ASDIR PRN IV Magnesium Sulfate/Dextrose (MAGNESIUM SULFATE 1GM/D5W 100ML) 100 ML ASDIR PRN IV Nitroglycerin/Dextrose (NITROGLYCERIN 50,000MCG/D5W 250ML) 250 ML ASDIR IV Norepinephrine Bitartrate (NOREPINEPHRINE 8 MG/NS 250 ML) 250 ML TITRATE IV Potassium Chloride (KCL 20MEQ/SWFI 100ML) 100 ML ASDIR PRN IV Sodium Bicarbonate (SODIUM BICARBONATE) 50 MEQ ASDIR PRN IV Ondansetron HCl (ZOFRAN) 4 MG Q6H PRN PRN IV ResultsFindings/Data:Laboratory Tests 01/07 01/07 01/07 01/07 01/06 1747 [...] SARS-CoV-2 Ag (Rapid) (Negative) Negative Diagnosis, Assessment PlanFree Text A P:AmbulateEncourage incentive spirometryDiuresis per nephrologyDischarge planning 01/05 Patient is sleepy but arousable and oriented.Respiratory support with nasal cannula 2 L. Wean to keep O2 sats greater 90%Echo to rule out pericardial effusionBLE venous Doppler to rule out DVTDiuresis per nephrology. Electrolytes replacedHopefully she can transfer to rehab tomorrow 01/06 Doing well, awake, no acute distressRemains on nasal cannula 3 L. O2 sats are 100%, wean O2 as toleratedEchocardiogram showed EF 55 to 59%BLE venous doppler negative for DVTAwaiting transfer to rehab 01/07 Patient remains in a stable condition, awaiting transfer to rehabO2 requirements decreased to 1 to 2 LEncourage I-S and ambulationReplace electrolytesContinue diuresis by nephrologyWill continue to follow in rehab Consultants: cardiology, cardiovascular surgery, critical/assembler unit at 1834 at 1031 RPT #:[id number] OF REPORTPRProgress [id number]:31:00G.[id number] e for patient [id number]:35:12 ACL 2022-01-07 14:08:00 [id number]/kQXpeb2lL D5J3zkJpI0DB naccTDcVTx9oQ5be+y4lXo1k3832-96-35X28:08:00 [facility] Preadmission ScreenREPORT#: REPORT STATUS:DATE:01/07/22 TIME: 1408 PATIENT: KIAH GILES UNIT #: ROOM: BED:: 43 AGE: 76 SEX: F ATTEND: Jesus Landry MDPROJECTED ADM AUTHOR: Leonard Major MDREP SRV REP SRV TM: 1408* ALL edits or amendments must be made on the electronic/computer document * IRF Preadmission Screen Information From [facility] PAS documentation:The data set between the solid lines has been imported from [facility] PAS documentation. PREADMISSION INFORMATION: DEMOGRAPHICS: Assessment date: 12/30/21Assessment time: 1107Patient has an Advanced Directive: NoContent of advance directive/living will/plan of care: Copy of advance directive on chart: Referring physician: DR. Chiang care provider: DR. DONG FUCHSConsulting physician(s): DR. LANDRY REHAB DR. FUCHS PRIMARY DR. MORE ATTENDING DR. VAIL MEDICAL DR. RAMOS MEDICAL DR. ROMERO SURGICAL DR. CHAUDHRY MEDICALReferral contact name: SAJAN Field contact number: [phone] setting: Acute hospitalRoom number: 3363 IMPAIRMENT GROUP: Impairment group: Neuromusc disorders Etiologic diagnosis: CIM REVIEW OF MED CONDITIONS: Date of onset: 12/17/21Current surgery date and type: MITRAL VALVE REPLACEMENT 12/23 CORONARY ARTERY BYPASS X1 12/23 PERICARDIECTOMY 12/23/21 ARTERIAL LINE PLACEMENT 12/24Active comorbid conditions: CAD, MITRAL VALVE REPLACEMENT 12/23, CORONARY ARTERYBYPASS, Pericardiectomy., OBESITY, RONA, HTN, HLD, DIABETES, CROHN'S DISEASE, CHRONIC A FIB, PACEMAKER, ANEMIA, HYPOXIC RESPIRATORY FAILURE, on BiPapPast medical and surgical history: 1. Mitral valve replacement (31 Magna valve). 2. Coronary artery bypass graft surgery x1 (ROBERTS to LAD). 3. Isolation of left atrial appendage. 4. Pericardiectomy. MILD RIGHT PLEURAL EFFUSION macular degeneration, obesity, RONA, hypertension, hyperlipidemia, diabetes, Crohn's disease, chronic atrial fibrillation, pacemaker placement, cardiac ablation x3 who had a cardiac cath revealing multivessel CAD. Clot degeneration Obstructive sleep apnea Chron's disease ANEMIAHad major surgery within 100 days of admission: YesRisk for medical/clinical complications: Anemia, Arrhythmia, Aspiration, BP fluctuation, Blood sugar fluctuation, Cardiac instability, Constipation, DVT, Depression, Electrolyte imbalance, Hypoxia, Incisional dehiscence, Infection, Injury d/t falls, Nutritional compromise, Pain, Renal insuff/failure, Skin breakdown, Urinary retention, Respiratory insufficiencyAcute hospital stay summary: This is a 76-year-old female who has past medical history of hypertension, diabetes, coronary artery disease, atrial fibrillation who presented with worsening shortness of breath and on further work-up was 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 She was with normal kidney function prior to surgery and after her surgery she began to develop oliguria. Her procedure was done without any complications butafter her surgery she did require pressor support for hypotension and she was intubated for respiratory acidosis and hypoxia and she was treated with vancomycin for infection treatment. When she was seen this morning she continued to have hypotension and her heart rate was paced by her permanent pacemaker and her urine output was 20 to 30/h. Her family at bedside denied anyhistory of kidney disease, kidney stone, chronic NSAID use or any urinary complaints. They also endorse that her blood pressure and diabetes were mostly controlled. Pt underwent MVR, CABG x 1, ILLAA, pericardectomy 12/19/[address] Romero. Pt developed critical illness myopathy and is progressing slowly with therapy d/t weakness, self care deficit, decreased endurance and balance, and decreased functional mobility. Pt requiring acute inpt rehab for multidisciplinary team of nursing, therapy, and physicians. Pt is willing and able to participate in 3 hr/day inpt rehab to return home safely. Pt's prior level of function was Mod I and sometimes used RW. PREADMIT VITALS: Date/Time 01/07/22 0408 01/05/22 0058 Temp F Temp C 36.5 36.4 Pulse 73 72 RR 17 16 BP 140/82 135/76 SPO2% 100 94 Ht ft 5 Ht in 4 Wt lbs 276.000 BMI SUPPORTING DIAGNOSTICS/LABS/RADIOLOGY/CARDIOLOGY: Date: 01/05/22 01/04/22 01/06/22 WBC: 7.0 7.3 5.7 HGB: 8.3 8.1 8.1 HCT: 26.4 24.0 25.6 Ca: 9.4 9.8 9.4 Na: 145 144 143 K+: 3.3 3.5 3.2 Glu: 259 103 115 M.91 2.02 BUN: 26 26 29 Creat: 1.0 0.9 1.1 Tot protein: Alb: PTT: PT: INR: PLT: 230 255 244 Additional labs: Cultures: 12/18/21 URINE YEAST 12/17/21 MRSA NEGATIVEImagin01/04/22 CXR IMPRESSION: Mild worsening right basilar opacities. Otherwise, stable exam. 01/03/22 CXR IMPRESSION: 1.Unchanged multifocal patchy bilateral airspace disease in the left lung base and right mid and lower lung. 2. Unchanged small bilateral pleural effusions. 01/02/22 CXR IMPRESSION: No acute findings. Unchanged study. 12/31/21 CXR IMPRESSION: 1. Stable pulmonary opacities with multifocal consolidation and or atelectasis. 2. Stable pleural effusions. 3. Stable postoperative cardiomediastinal silhouette. 12/30/21 IMPRESSION: 1. Bilateral multifocal ground-glass pulmonary opacities with associated interstitial septal thickening. Edema and inflammation in the differential. Imaging features can be seen with COVID-19 pneumonia, though are nonspecific and can occur with a variety of infectious and noninfectious processes. (Reference: Rodriguez) 2. Partial atelectasis of the lower lobes with additional foci of subsegmental atelectasis and or consolidation. 3. Small bilateral pleural effusions. 4. Postoperative changes of CABG. Stable cardiomegaly. Trace pericardial fluid. Small volume anterior mediastinal hematoma/seroma. 12/23/21 ABD XRAY IMPRESSION: 1. A nasogastric tube terminates overlying the stomach. 2. Dilated small bowel loops in the left lower quadrant MISCELLANEOUS U/S IMPRESSION: Minimal left and mild right pleural effusions. 12/21/21 RETROPERITONEUM U/S IMPRESSION: Limited exam. No sonographic abnormality of the kidneys. 12/20/21 CXR IMPRESSION: Stable radiographic appearance of the chest. 12/17/21 DOPPLER U/S IMPRESSION: Greate 01/06/22 doppler u/s IMPRESSION: No evidence of deep vein thrombosis. r saphenous vein is patent. Vein mapping as described. 12/17/21 CAROTID DOPPLER IMPRESSION: No flow-limiting proximal internal carotid arterial stenosis. 12/17/[address] IMPRESSION: 1. There is a 2 lead [...] pulmonary atelectasis but no evidence of pneumonia. 12/12/21 CXR IMPRESSION: Cardiomegaly with minimal central venous congestion. Other supporting diagnostics: BIPAP RESPIRATORY STATUS: Respiratory treatments: Oxygen, Incentive spirometer, NebulizerO2 liters per minute: 3Respiratory status: NASAL CANNULA OBSTRUCTIVE SLEEO APNEA NEUROLOGIC STATUS: Neurologic status: Alert, Oriented to person, Oriented to place, Oriented to timePatient's mood and behavior: AppropriateHand dominance: Right BOWEL/BLADDER: Continent of bladder for developmental age: YesNumber of bladder accidents in last 48 hours: Catheter type: Insertion date: Bladder aids: Bladder comment: Continent of bowel for developmental age: YesNumber of bowel accidents in last 48 hours: Date of last BM: 01/05/22Colostomy: Ileostomy: Bowel aids: Bowel comment: SKIN: Skin alteration: Present/Exists SKIN ALTERATION 1: Type: WoundLocation: GeneralizedStage: Description: - - SKIN COLOR - - Color within expectations for ethnicity: Yes Skin turgor-tenting less than 1 second: Yes - - SKIN PIERCINGS - - Skin piercings: None - - SKIN ALTERATION - - Skin alteration/Procedure site: Present/Exists Skin alteration: - - Procedural site Anterior Chest midline - - Instance list status: Active Related clinical factors: Procedure related Tissue type-worst: Edges approximated Wound base visible: Yes Intact skin: Yes Intact skin blanchable: Yes Any open areas: No Altered level/stage: Closed Document advanced wound measurements: No cm2 area: Cannot Calculate Area Yet Intact value score: 0 -------- - - Puncturesite Anterior UPPER ABDOMEN S/P CHEST TUBES - - Instance list status: Active Related clinical factors: Procedure related Tissue type-worst: Dressing intact/device Document advanced wound measurements: No cm2 area: Cannot Calculate Area Yet Worst tissue type score: 0 Intact value score: 0 -------- - - Excoriation Abdomen left lower quad - - Instance list status: Inactive Tissue type-worst: Normal/skin closed/scar Wound base visible: No Intact skin: Yes Intact skin blanchable: Yes Any open areas: No Altered level/stage: Closed Document advanced wound measurements: No cm2 area:Cannot Calculate Area Yet Worst tissue type score: 0 Intact value score: 0 -------- - - Excoriation Medial RIGHT GROIN - - Instance list status: Inactive Related clinical factors: Moisture related Tissue type-worst: Normal/skin closed/scar Wound base visible: No Intact skin: Yes Intact skin blanchable: Yes Any open areas: No Altered level/stage: Closed Document advanced wound measurements: No cm2 area: Cannot Calculate Area Yet Worst tissue type score: 0 Intact value score: 0 <End> Document skin test monitor: No - - VASCULAR - - - - CAP REFILL DELAY - - Capillaryrefill less than or equal to 3 seconds: Yes - - PERIPHERAL PULSE - - Pulses strong and equal bilaterally: Yes - - CALF INSPECTION - - Calves symmetrical and pain is absent with dorsiflexion: Yes - - PERIPHERAL EDEMA - - Peripheral edema: Present/Exists Peripheral edema location 1: Leg Peripheral edema location (L/R) 1: Bilateral COPIED FROM NURSE ASSESSMENT SKIN ALTERATION 2: Type: Location: Stage: Description: SKIN ALTERATION 3: Type: Location: Stage: Description: SKIN ALTERATION 4: Type: Location: Stage: Description: EATING/NUTRITIONAL: Nutritional intake: FLUID MODIFIER 1000, 1800 ADAEating compensatory strategies: Medication administration: Subcutaneous, Topicals, Medications whole, IV REHAB NEEDS: Special rehabilitation needs: Respiratory therapy, O2, IV/PICC/CVCSpecial rehabilitation precautions: Safety/fall, Sternal, Diet, Cardiac, AspirationRehabilitation precaution detail: EXTRA PERSONNELL STERNAL PRECAUTIONS FALLS, BIPAP CARDIAC ORTHOSTATIC B/P DIABETIC C PAP SUBCLAVIAN LEFT PACEMAKER w/c to follow pulmonary desats FUNCTIONAL ASSESSMENT: FUNC. TASK PRIOR LOF CURRENT LOF EXPECTED LOFBathing Supervise/touch asst Supervise/touch asst IndependentU.B. Dressing Independent Substantial/max asst Supervise/touch asstL.B. Dressing Supervise/touch asst Substantial/max asst Supervise/touch asstBed/Ch Transf. Independent Supervise/touch asst IndependentToilet Transfer Independent Supervise/touch asst IndependentStairs Supervise/touch asst Partial/moderate Setup/cleanup ONLY asstLocomotion Supervise/touch asst Supervise/touch asst Independent Locomotion prior device use: RW/FWWDescription of prior level of locomotion: MOD I WITH RWLocomotion current device: RW/FWWLocomotion current distance traveled without a rest break: 36', 24', and 15 x 2Description of current level of locomotion: REQUIRES EXTRA ENCOURAGEMENT TO COMPLETE TASK AND REQUIRES 4/L O2 TO MAINTAIN STATS WITH MOBILITY/RW WITH W/C TOFOLLOWDescription of expected level of locomotion: MOD I WITH WALKER Language and Cognition: A O X 3Add'l functional comment: SIT/STAND MIN A extra time Prior device use: RW/Front wheeled walkerPrior device use additional information: PRE-HOSPITAL: Pre-hospital services utilized: NoneOccupation/Profession: RetiredEducation history: Return to work/school plan: Marital status: WidowedHobbies/leisure activities: Prior living situation: HomeLiving with: FamilyLiving with comment: LIVES WITH DAUGHTER ANTICIPATED DC PLAN/POST IRF: Primary support contact: ARABELLA GILBERTXRelationship to patient: DAUGHTERPhone number 1: [phone] number 2: Caregiver availability: Caregiver can provide: Patient/caregiver goals/preferences: Expected discharge destination: HomeExpected discharge physical layout: One story, Shower only, Tub/shower comboNumber of external stairs: Number of internal stairs: Railing details: Grab bars location: Barriers to discharge: EnduranceOptions discussed with patient: YesOptions discussed with caregiver: YesPatient agrees with program requirements: Yes ACTIVITY TOLERANCE: Current treatment interventions: Occupational therapy, Physical therapy, Respiratory therapyPatient able to tolerate 3 hours of therapy a day: YesPatient able to tolerate 15 hours of therapy a week: Altered therapy schedule comment: ACUTE INPATIENT REHAB PLAN: Estimated length of stay in days: 12Anticipated services in acute inpatient rehab: farmworker, Occupational therapy, Physical therapy, Dietitian, Respiratory therapyAcute hospital documents reviewed prior to admission decision: Acute History/Physical, Consult notes, Operative reports, Progress notes, Lab/diagnostics, Therapy notes, Vital signs, Other ancillary notes CRS ELECTRONIC SIGNATURE: CRS #1 electronic signature: BETTIE MIRZA credentials: RNDate: 01/05/22Time: 0651 CRS #2 electronic signature: BETTIE MIRZA credentials: RNDate: 01/07/22Time: 0535 CRS #3 electronic signature: [place] credentials: Date: Time: Provider Pre-Admit SummaryAcute IP rehab admit: criteria metMD determinationBased upon my evaluation and review of the supporting assessment documentation and consultation with the preadmission assistant food service director, I have determined, prior to admitting this patient, that there is reasonable expectation that at the time of admission to the IRF, the patient's medical management and rehabilitation needs require an inpatient stay and close physician involvement. Patient can be expected to actively participate in, and benefit from, and intensive rehab therapy program whose intensity is not provided in lower levels of care. Significant barriers that can only be addressed in an acute inpatient rehab program, including, but not limited to: Complex acute rehab needs: Custom therapy tx plan, Mgt of complex Co-morb, Multiple consulting MDs, New medical diagnosis, Hospitalist consult at 1410 RPT #:[id number] OF REPORTCLClinical avgu2211-28-36X04:08:00G.[id number] e for patient dnwpYWZCUKRCZVGHUF0676-52-21N96:10:17 [facility] ACL 2022-01-07 12:20:00 [id number] xlysW8e1Ue+2 Di2LjhBc7AfOH9zMHsraIggh2348-18-17I94:20:00 [facility] CenterHospitalist Discharge SummaryREPORT#:[id number] REPORT STATUS: SignedDATE:01/07/22 TIME: 1220 PATIENT: KIAH GILES UNIT #: [id number]#: [id number] [address] [birth year] AGE: 76 SEX: F ATTEND: Jeffry More AUTHOR: Meryl Rosa MD * ALL edits or amendments must be made on the electronic/computer document * General InformationDate of admission:Observation Start Date: Date of admission: 12/17/21 Discharge date: 01/07/22Admission diagnosis: CAD -- multiple vesssels HTN DM HLD Crohn's disease chronic atrial fibrillation status post 3 ablations macular degeneration obesity obstructive sleep apnea acute respiratory failure --post surgery severe mitral valve regurgitation constrictive pericarditisDischarge diagnosis: CAD -- multiple vesssels HTN DM HLD Crohn's disease chronic atrial fibrillation status post 3 ablations macular degeneration obesity obstructive sleep apnea acute respiratory failure --post surgery severe mitral valve regurgitation constrictive pericarditisHospital course: CAD -- multiple vesssels HTNDM HLDCrohn's diseasechronic atrial fibrillation status post 3 ablationsmacular degenerationobesityobstructive sleep apneaacute respiratory failure --post surgery severe mitral valve [...] MVR (31 Magna valve), CABG x 1 (ROBERTS-LAD), ILAA and pericardectomy -- she remain intubated on the vent -- chest tube are in place -on levophed and epinephrine drip -- monitor in CCU 12/20- she was extubated --on bipap now -- NPO --off Levophed/epinephrine, continue vasopressin, inotropes with milrinone, -- chest tube remain in place -- she is stable post surgery 12/21-- she is on high flow O2 -- edema --lasix --chest tube in place --- she is hemodynamic stable -- continue monitor in CCU 12/22- she remain on high O2 CXR show worsening pulmonary venous vascular congestion. --lasix iv tid -- chest tube are [...] drip as nurse -- continue supportive care 12/27On lasix and insulin drips. Back on lantus dose BID, trend glucose.Continue PT/OT.12/28Increase lantus BID. 12/29-- she remain on bipap [...] -- continue PT/OT -- rehab --pending bed 01/05Potassium low, replace, labs AM.Continue PT/OT and await placement. 01/06- replace K -- continue PT/OT -- rehab placement --pending she is stable to discharge to rehab . Consultants: cardiology, cardiovascular surgery, critical/assembler unit Free Text DxA P NotesFree text DxA P notes: 76 years old female with PMH of macular degeneration, obesity, obstructive sleepapnea (CPAP at home), former smoker, hypertension, hyperlipidemia, diabetes, Crohn's disease, chronic atrial fibrillation status post 3 ablations in the past(on Xarelto), pacemaker placement CAD -- multiple vesssels HTNDM HLDCrohn's diseasechronic atrial fibrillation status post 3 ablationsmacular degenerationobesityobstructive sleep apneaacute respiratory failure --post surgery severe mitral valve [...] MVR (31 Magna valve), CABG x 1 (ROBERTS-LAD), ILAA and pericardectomy -- she remain intubated on the vent -- chest tube are in place -on levophed and epinephrine drip -- monitor in CCU 12/20- she was extubated --on bipap now -- NPO --off Levophed/epinephrine, continue vasopressin, inotropes with milrinone, -- chest tube remain in place -- she is stable post surgery 12/21-- she is on high flow O2 -- edema --lasix --chest tube in place --- she is hemodynamic stable -- continue monitor in CCU 12/22- she remain on high O2 CXR show worsening pulmonary venous vascular congestion. --lasix iv tid -- chest tube are [...] drip as nurse -- continue supportive care 12/27On lasix and insulin drips. Back on lantus dose BID, trend glucose.Continue PT/OT.12/28Increase lantus BID. 12/29-- she remain on bipap [...] rehab placement as rehab Med Rec Med RecDischarge meds:Stop taking the following medications:FUROSEMIDE (LASIX) 20 MG TAB 10 MILLIGRAM ORAL DAILY. METOLAZONE (ZAROXOLYN) 10 MG TAB 10 MILLIGRAM ORAL DAILY. Continue taking these medications:RIVAROXABAN (XARELTO) 20 MG TAB 20 MILLIGRAM ORAL [...] DAILY. INSULIN DETEMIR (LEVEMIR FlexTouch (15mL)) 100 UNIT/ML (3 ML) PEN.INJCTR 50 UNITS SUBCUTANEOUS TWICE DAILY. INSULIN LISPRO (HumaLOG CARTRIDGE (15mL)) 100 UNIT/ML CARTRIDGE 0 UNITS SUBCUTANEOUS THREE TIMES A DAY. Instructions: per sliding scale LIRAGLUTIDE (VICTOZA (6mL)) 0.6 MG/0.1 ML (18 MG/3 ML) PEN.INJCTR 1.8 MILLIGRAM SUBCUTANEOUS DAILY. metFORMIN (GLUCOPHAGE) 1,000 MG TAB 1,000 MILLIGRAM ORAL TWICE DAILY. Instructions: TAKE WITH MEALS ADALIMUMAB + SUPPLIES (HUMIRA PREFILLED PEN) 40 MG/0.8 ML KIT 40 MILLIGRAM SUBCUTANEOUS EVERY 14 DAYS. azaTHIOprine (IMURAN) 50 MG TAB 50 MILLIGRAM ORAL DAILY. Start taking the following new medications:IPRATROPIUM/ALBUTEROL (DUONEB 0.5 MG-3/3ML) 0.5 MG-3 MG (2.5 MG BASE)/3 ML [...] 9AM 4PM. Qty = 30 No Refills ObjectiveVS/I OLast Documented: Result Date Time Pulse Ox 100 01/07 1205 B/P 139/76 01/07 1205 B/P Mean 97.0 01/07 1205 O2 Delivery Nasal cannula 01/07 1205 Temp 36.5 01/07 1205 Pulse 70 01/07 [...] scale Measurement Method General appearance: alert, awake, orientedHead/Eyes: atraumatic, normal conjunctiva/sclera, normal eyelids/periorb., normocephalicNeck: full range of motion, non-tender, no JVDCardiovascular: normal heart sounds, regular rate rhythmRespiratory: decreased breath sounds, clear to auscultationAbdomen: non-tender, normal bowel sounds, soft, no distentionExtremities: edema, moves all, no calf tendernessMusculoskeletal: decreased ROMNeuro/CAPTAIN FIRE PREVENTION BUREAU: alert, 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Skin: dry, intactPsychiatry: normal affect, normal mood ResultsFindings/Data:Laboratory Tests: 01/07 01/07 01/07 01/06 01/06 0940 [...] SARS-CoV-2 Ag (Rapid) (Negative) Negative Discharge Instructions PCPDischarge to: Inpatient Rehab FacilityAdditional Discharge Routines: Attending Follow-UpDiet: CardiacActivity: As Tolerated Follow-up AppointmentsAttending Physician: Attending Physician: Jeffry More MD Quality: Discharge Current MedicationsCurrent medication review:Home Medications:RIVAROXABAN (XARELTO) 20 MG PO DAILY amLODIPine (NORVASC) [...] DAILY INSULIN DETEMIR (LEVEMIR FlexTouch (15mL)) 50 UNITS SUBQ BID INSULIN LISPRO (HumaLOG CARTRIDGE (15mL)) 0 UNITS SUBQ TID LIRAGLUTIDE (VICTOZA (6mL)) 1.8 MG SUBQ DAILY metFORMIN (GLUCOPHAGE) 1,000 MG PO BID ADALIMUMAB + SUPPLIES (HUMIRA PREFILLED PEN) 40 MG SUBQ Q14D azaTHIOprine (IMURAN) 50 MG PO DAILY I attest that the foregoing medication list in the medical record is true, accurate, and complete to the best of my knowledge. at 1222 [facility] #:[id number] OF REPORTDSDischarge xadyreb2671-62-62G78:20:00G.[id number] able for patient roouMLWPKCWZCRWMYT3292-43-86N84:22:29 [facility] 2022-01-06 18:07:00 [id number] QA6jROtW2Nji X7rDLfuMO7G8TgLLOERKoHbX2477-23-48M90:07:[address] [facility] ([facility])Rehab Progress NoteREPORT#:[id number] REPORT STATUS: SignedDATE:01/06/22 TIME: 180 PATIENT: KIAH GILES UNIT #: [id number]#: [id number] [address] [birth year] AGE: 76 SEX: F ATTEND: Jeffry More MDADM AUTHOR: Alicia Pantoja NP * ALL edits or amendments must be made on the electronic/computer document * SubjectiveChief complaint:rehab follow-upNADOOB in chairBreathing betterfeeling better Ready to go to rehabNo GOLD/N/V/D14 systems reviewed and negative except that mentioned above. Objective GeneralVS:Vital Signs: Date Time Temp Pulse Resp B/P B/P Pulse O2 O2 Flow FiO2 Mean Ox Delivery Rate 01/06 1745 [...] 131/72 91.8 97 PATIENT WEIGHT: Weight (lb): 258Weight (oz): 13.16Weight (kg): 117.400 Medications:Active Meds + DC'd Last 24 HrsAcetazolamide (DIAMOX) 250 MG DAILY PO Furosemide (LASIX) 40 MG DAILY PO Potassium Chloride (POTASSIUM CHLORIDE 20MEQ TAB.ER) 20 MEQ Q2H PO (DC) Metoprolol Tartrate (LOPRESSOR) 25 MG Q12HR PO Acetazolamide (DIAMOX) 500 MG Q24H IV (DC) Furosemide (LASIX 40 mg/4 mL INJECTION) 40 MG DAILY IV (DC) Sterile Water (WATER FOR INJECTION) 5 ML ASDIR PRN IV Potassium Chloride (POTASSIUM CHLORIDE 20MEQ TAB.ER) 40 MEQ DAILY PRN PRN PO Insulin Glargine (Lantus/Semglee) 30 UNIT DAILY SUBQ Insulin Glargine (Lantus/Semglee) 20 UNIT BEDTIME SUBQ Insulin Human Lispro (HUMALOG) 0 AC HS SUBQ Dextrose/Water (DEXTROSE 10% IN WATER) 125 ML ASDIR PRN IV (CKD) Dextrose/Water (DEXTROSE 10% IN WATER) 250 ML ASDIR PRN IV (CKD) Glucagon (GLUCAGON) 1 MG ASDIR PRN IM Amiodarone HCl (CORDARONE) 200 MG BID PO Sterile Water (WATER FOR INJECTION) 5 ML ASDIR PRN IV Sterile Water (WATER FOR INJECTION) 5 ML ASDIR PRN IV Sodium Chloride (SODIUM CHLORIDE) 4 ML RTBID NEB Melatonin (Melatonin) 3 MG BEDTIME PO Sodium Chloride (SODIUM CHLORIDE) 10 ML BID IV Sodium Chloride (SODIUM CHLORIDE) 10 ML ASDIR PRN IV Pantoprazole (PROTONIX) 40 MG DAILY PO Dexmedetomidine/Sodium Chloride (PRECEDEX 1000MCG/NS 250ML) 250 ML ASDIR IV Bisacodyl (DULCOLAX) 10 MG DAILY PRN PRN RECTAL Lactulose (LACTULOSE) 20 GM DAILY PRN PRN PO Magnesium Hydroxide (MILK OF MAGNESIA) 30 ML DAILY PRN PRN PO Aspirin (ASPIRIN) 81 MG DAILY PO Clopidogrel Bisulfate (Plavix) 75 MG DAILY PO Cyanocobalamin (Vitamin B-12 500 mcg tab) 500 MCG DAILY PO Ferrous Sulfate (FERROUS SULFATE) 325 MG DAILY PO Metolazone (metOLazone) 5 MG DAILY PO Polyethylene Glycol (MIRALAX) 17 GM DAILY PO Atorvastatin Calcium (LIPITOR) 40 MG 2100 PO Docusate Sodium (DOCUSATE SODIUM) 100 MG BID PO Senna (SENOKOT) 17.6 MG BEDTIME PO Acetaminophen (TYLENOL) 650 MG Q4H PRN PRN PO Acetylcysteine (MUCOMYST FOR RT) 200 MG RTQ6H NEB Albuterol/Ipratropium (DUONEB) 3 ML RTQ6H NEB Bisacodyl (DULCOLAX) 10 MG ONCE PRN RECTAL Dopamine HCl/Dextrose (DOPamine 400MG/D5W 250ML) 250 ML ASDIR IV Milrinone Lactate/Dextrose (MILRINONE 20MG/D5W 100ML) 100 ML ASDIR IV (CKD) Vasopressin (VASOSTRICT 20 Unit/NS 100ML) 100 ML ASDIR IV (CKD) Acetaminophen (TYLENOL) 650 MG Q4H PRN PRN RECTAL Calcium Chloride (CALCIUM CHLORIDE) 1 GM ASDIR PRN IV Magnesium Sulfate (MAGNESIUM SULFATE 4GM/SWFI 100ML) 100 ML ASDIR PRN IV Magnesium Sulfate (MAGNESIUM SULFATE 2GM/SWFI 50ML) 50 ML ASDIR PRN IV Magnesium Sulfate/Dextrose (MAGNESIUM SULFATE 1GM/D5W 100ML) 100 ML ASDIR PRN IV Nitroglycerin/Dextrose (NITROGLYCERIN 50,000MCG/D5W 250ML) 250 ML ASDIR IV Norepinephrine Bitartrate (NOREPINEPHRINE 8 MG/NS 250 ML) 250 ML TITRATE IV Potassium Chloride (KCL 20MEQ/SWFI 100ML) 100 ML ASDIR PRN IV Sodium Bicarbonate (SODIUM BICARBONATE) 50 MEQ ASDIR PRN IV Ondansetron HCl (ZOFRAN) 4 MG Q6H PRN PRN IV Physical ExamGeneral appearance: obese, alert, awake, orientedPsych: alert, oriented x 3HEENT: anicteric, mucosal membranes moistNeck: supple, no JVDCardiovascular: regular rate rhythm, no murmurRespiratory: diminished breath sounds (bases ), on oxygen (Hi flow O2 )Abdomen: bowel sounds present, non-distended, soft, non-tenderSkin: dry, intact, no rash, incisions D/IMusculoskeletal - general: Musculoskeletal - general: swelling (BLE +3), moving all ext AGNeuro/CAPTAIN FIRE PREVENTION BUREAU: alert, 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, normal speech, no motor deficits, no sensory deficits ResultsFindings/Data:Laboratory Tests: 01/06 01/06 01/06 01/05 1129 0757 [...] (Auto) (14.0 - 32.0 %) 7.8 L [place] % (Auto) (4.8 - 9.0 %) 11.7 H Eos % (Auto) (0.3 - 3.7 %) 1.6 Baso % (Auto) (0.0 - 2.0 %) 0.3 Neut # (Auto) (2.0 - 7.6 x10 3/uL) 4.44 Lymph # (Auto) (1.0 - 3.8 x10 3/uL) 0.45 L [place] # (Auto) (0.1 - 0.8 x10 3/uL) 0.67 Eos # (Auto) (0.0 - 0.2 x10 3/uL) 0.09 Baso # (Auto) (0.0 - 0.2 x10 3/uL) 0.02 Abs Immat Gran (auto) (0.00 - 0.03 x10 3/uL) 0.07 H Add Manual Diff NO Immature Gran % (0.0 - 2.0 %) 1.2 Nucleated RBC % (0 - 0 %) 0.5 H Nucleated RBCs # (Man) (0.0 - 0.1 x10 3/uL) 0.03 Diagnosis, Assessment PlanFree Text A P:Critical illness myopathyStatus post CABG x1 Status post MVRGeneralized weaknessDeconditioningImpaired ADLs, mobility, gait, balance and endurance postoperative anemiaMorbid obesityCADHLD Crohn's diseaseChronic A. fibHypoxic respiratory failureHypokalemia Plan:Continue PT/OTOut of bed to chairWork on strength, bed mobility, transfers, gaitIncrease enduranceFall precautionsMonitor p.o. intake and nutritionStrict decubitus precautionsMonitor anemiaAdvance therapies as toleratedTolerating regular dietContinue diuresis- monitor strict I OsLasix IV 40 dailyWeigh patient dailyPotassium replenishedAdvance therapies as toleratedIRF consulted. Spoke with 5east Liaison Aracelis-states pt should have bed on rehab unit tomorrow Total time 35mins time spent reviewing labs, notes, meds, therapy, vs, and with patient performing physical examination, discussing rehab plan of care, goals, therapies, progress, medications, labs, IRF. All questions answeredRehab attestation:Face to face exam completed. Treatment plan discussed with patient. at 1800 RPT #:[id number] OF REPORTPRProgress mguk4962-17-06S01:07:00G.[id number] e for patient rljhQQDUAHYYKVTAPD9258-20-03Z36:10:13 ACL 2022-01-06 15:29:00 [id number]/CfnLt0q6x2y/VMDx t1AtCCsc7wAc Ua2qsWC34qNIR3zd6Dx8hdd03895-84-88I50:29:[address] [facility] ([facility])Cardiology Progress NoteREPORT#:[id number] REPORT STATUS: SignedDATE:01/06/22 TIME: 1529 PATIENT: KIAH GILES UNIT #: [id number]#: [id number] [address] [birth year] AGE: 76 SEX: F ATTEND: Jeffry More [facility] AUTHOR: Isabella Clemens AGACNP * ALL edits or amendments must be made on the electronic/computer document * SubjectivePatient reports:No: complaints. Objective GeneralVS/I O:24 hour I O ending at 0700: 01/06 [...] 99 Nasal cannula PATIENT WEIGHT: Weight (lb): 258Weight (oz): 13.16Weight (kg): 117.400 Medications:Active Meds + DC'd Last 24 HrsAcetazolamide (DIAMOX) 250 MG DAILY PO Furosemide (LASIX) 40 MG DAILY PO Potassium Chloride (POTASSIUM CHLORIDE 20MEQ TAB.ER) 20 MEQ Q2H PO (DC) Metoprolol Tartrate (LOPRESSOR) 25 MG Q12HR PO Acetazolamide (DIAMOX) 500 MG Q24H IV (DC) Furosemide (LASIX 40 mg/4 mL INJECTION) 40 MG DAILY IV (DC) Sterile Water (WATER FOR INJECTION) 5 ML ASDIR PRN IV Potassium Chloride (POTASSIUM CHLORIDE 20MEQ TAB.ER) 40 MEQ DAILY PRN PRN PO Insulin Glargine (Lantus/Semglee) 30 UNIT DAILY SUBQ Insulin Glargine (Lantus/Semglee) 20 UNIT BEDTIME SUBQ Insulin Human Lispro (HUMALOG) 0 AC HS SUBQ Dextrose/Water (DEXTROSE 10% IN WATER) 125 ML ASDIR PRN IV (CKD) Dextrose/Water (DEXTROSE 10% IN WATER) 250 ML ASDIR PRN IV (CKD) Glucagon (GLUCAGON) 1 MG ASDIR PRN IM Amiodarone HCl (CORDARONE) 200 MG BID PO Sterile Water (WATER FOR INJECTION) 5 ML ASDIR PRN IV Sterile Water (WATER FOR INJECTION) 5 ML ASDIR PRN IV Sodium Chloride (SODIUM CHLORIDE) 4 ML RTBID NEB Melatonin (Melatonin) 3 MG BEDTIME PO Sodium Chloride (SODIUM CHLORIDE) 10 ML BID IV Sodium Chloride (SODIUM CHLORIDE) 10 ML ASDIR PRN IV Pantoprazole (PROTONIX) 40 MG DAILY PO Dexmedetomidine/Sodium Chloride (PRECEDEX 1000MCG/NS 250ML) 250 ML ASDIR IV Bisacodyl (DULCOLAX) 10 MG DAILY PRN PRN RECTAL Lactulose (LACTULOSE) 20 GM DAILY PRN PRN PO Magnesium Hydroxide (MILK OF MAGNESIA) 30 ML DAILY PRN PRN PO Aspirin (ASPIRIN) 81 MG DAILY PO Clopidogrel Bisulfate (Plavix) 75 MG DAILY PO Cyanocobalamin (Vitamin B-12 500 mcg tab) 500 MCG DAILY PO Ferrous Sulfate (FERROUS SULFATE) 325 MG DAILY PO Metolazone (metOLazone) 5 MG DAILY PO Polyethylene Glycol (MIRALAX) 17 GM DAILY PO Atorvastatin Calcium (LIPITOR) 40 MG 2100 PO Docusate Sodium (DOCUSATE SODIUM) 100 MG BID PO Senna (SENOKOT) 17.6 MG BEDTIME PO Acetaminophen (TYLENOL) 650 MG Q4H PRN PRN PO Acetylcysteine (MUCOMYST FOR RT) 200 MG RTQ6H NEB Albuterol/Ipratropium (DUONEB) 3 ML RTQ6H NEB Bisacodyl (DULCOLAX) 10 MG ONCE PRN RECTAL Dopamine HCl/Dextrose (DOPamine 400MG/D5W 250ML) 250 ML ASDIR IV Milrinone Lactate/Dextrose (MILRINONE 20MG/D5W 100ML) 100 ML ASDIR IV (CKD) Vasopressin (VASOSTRICT 20 Unit/NS 100ML) 100 ML ASDIR IV (CKD) Acetaminophen (TYLENOL) 650 MG Q4H PRN PRN RECTAL Calcium Chloride (CALCIUM CHLORIDE) 1 GM ASDIR PRN IV Magnesium Sulfate (MAGNESIUM SULFATE 4GM/SWFI 100ML) 100 ML ASDIR PRN IV Magnesium Sulfate (MAGNESIUM SULFATE 2GM/SWFI 50ML) 50 ML ASDIR PRN IV Magnesium Sulfate/Dextrose (MAGNESIUM SULFATE 1GM/D5W 100ML) 100 ML ASDIR PRN IV Nitroglycerin/Dextrose (NITROGLYCERIN 50,000MCG/D5W 250ML) 250 ML ASDIR IV Norepinephrine Bitartrate (NOREPINEPHRINE 8 MG/NS 250 ML) 250 ML TITRATE IV Potassium Chloride (KCL 20MEQ/SWFI 100ML) 100 ML ASDIR PRN IV Sodium Bicarbonate (SODIUM BICARBONATE) 50 MEQ ASDIR PRN IV Ondansetron HCl (ZOFRAN) 4 MG Q6H PRN PRN IV Status post:CABG, MVR, and ILAAPacemaker: permanent Physical ExamGeneral appearance: obese, alert, awake, oriented, no acute distressNeck: no JVDCardiovascular: CV assessment: pedal edema, regular rate and rhythmRespiratory: decreased breath sounds, on oxygen, shortness of breath, no distressAbdomen: obeseGenitourinary: no flank pain, no urinary catheterUpper extremity: UE assessment: normal temperature, no edemaLower extremity: LE assessment: edema (less)Neuro/CAPTAIN FIRE PREVENTION BUREAU: alert, 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Skin: dryPsychiatry: normal affect, normal mood ResultsFindings/Data:Laboratory Tests 01/06 01/06 01/06 01/05 01/05 1129 [...] 110 MG/DL) 200 H 105 162 H 140 H Calcium (8.0 - 10.5 mg/dL) 9.4 [...] (Auto) (14.0 - 32.0 %) 7.8 L [place] % (Auto) (4.8 - 9.0 %) 11.7 H Eos % (Auto) (0.3 - 3.7 %) 1.6 Baso % (Auto) (0.0 - 2.0 %) 0.3 Neut # (Auto) (2.0 - 7.6 x10 3/uL) 4.44 Lymph # (Auto) (1.0 - 3.8 x10 3/uL) 0.45 L [place] # (Auto) (0.1 - 0.8 x10 3/uL) 0.67 Eos # (Auto) (0.0 - 0.2 x10 3/uL) 0.09 Baso # (Auto) (0.0 - 0.2 x10 3/uL) 0.02 Abs Immat Gran (auto) (0.00 - 0.03 x10 3/uL) 0.07 H Add Manual Diff NO Immature Gran % (0.0 - 2.0 %) 1.2 Nucleated RBC % (0 - 0 %) 0.5 H Nucleated RBCs # (Man) (0.0 - 0.1 x10 3/uL) 0.03 Laboratory Tests 01/06 0320 Chemistry Magnesium (1.80 - 2.40 mg/dL) 1.86 Radiology data:Recent Impressions:ULTRASOUND - DUP VEIN RAJAN 01/06 0602 Report Impression - Status: SIGNED Entered: 01/06/2022 06 IMPRESSION: No evidence of deep vein thrombosis. Impression By: AureliaBJMQuincy - Boo Clay M.D. Telemetry Interpretation:paced Diagnosis, Assessment PlanPlan discussed with: patient Free Text DxA P NotesFree Text DxA P Notes:Ms Giles is a 76 y/o Femal w/ PMHx: CAD, HLD, T2DM, RONA (CPAP at home), smoker,Crohn's disease, AF s/p ablation (on Xarelto), s/p PPM and lymphedema. Dr. Ramos is consulted for CAD s/p CABG, MVR. 1. CAD s/p CABG, MVR, and ILAA. post-op per CTS and critical careOn Plavix, aspirin, beta-delma, statinvolume management per Nephrology negative fluid balance 2. Chronic AF s/p PPM/ablation. had ILAA during bypass no need for AC 3. Hypertension continue metoprolol tartrate 25 mg BID 4. HyperlipidemiaContinue statins. 5. Crohn's disease. Per IM. 6. MARCELLO - resolvingper Nephrology 7. Resp insufficiencyBiPAP as neededon Nasal cannulaSlowly improving 8. Acute on chronic diastolic CHF/volume overloadvolume status improvingdiuretic management per nephrology/CTS - on PO lasix Slowly improvingcontinue supportive carePT OTawaiting inpatient rehab at 1804 at 1549 RPT #:[id number] OF REPORTPRProgress hcjf2986-35-92Q80:29:00G.[id number] e for patient cappONKHCJUMZFDYVW2548-42-95Q88:04:34 HC ACL 2022-01-06 15:29:00 [id number]/SzGr5zTlxQPBXvFs ClM91uz83G/m EVecb0LTEb6c3cXEL9rEy7Iv6361-67-23V89:29:00 [facility]Card[facility] ProgREPORT#:[id number] REPORT STATUS: SignedDATE:01/06/22 TIME: 1529 PATIENT: KIAH GILES UNIT #: [id number]#: [id number] [address]: 41 AGE: 76 SEX: F ATTEND: Jeffry More AUTHOR: Kena Macedo VISUAL EFFECTS ARTIST * ALL edits or amendments must be made on the electronic/computer document * GeneralStatus post:1. Mitral valve replacement (31 Magna valve). 2. Coronary artery bypass graft surgery x1 (ROBERTS to LAD). 3. Isolation of left atrial appendage. 4. Pericardiectomy. SubjectiveChief complaint:Follow up MVR Review of SystemsConstitutional:Denies: fever, malaise. Allergy/Immun:Denies: allergic reaction. ENT:Denies: sore throat. Respiratory:Denies: SOB. GI:Denies: abdominal pain. Heme:Denies: bleeding. Neuro:Denies: focal weakness, headache. All systems rev neg: except as marked Objective GeneralVS/I OLast Documented: Result Date Time Pulse Ox 95 01/06 1745 B/P 140/63 01/06 1745 B/P Mean 0.0 01/06 1745 O2 Delivery Nasal cannula 01/06 1745 Temp 97.3 01/06 1745 Pulse 69 01/06 1745 Resp 20 01/06 1745 FiO2 32 01/06 161 O2 Flow Rate 3 01/06 1615 24 hour I O ending at 0700: 01/06 0700 01/05 1900 Intake Total 250 600 Output Total 1600 1100 Balance -1350 -500 Intake, Oral 250 600 Number Voids 3 Output, Urine 1600 1100 Patient 259 lb Weight Weight Standing scale Measurement Method PATIENT WEIGHT: Weight (lb): 258Weight (oz): 13.16Weight (kg): 117.400 Physical ExamGeneral appearance: obese, alert, orientedWound/incision: Location:sternal Site condition: edges approximated, incision intact, no drainageHEENT: anictericNeck: supple/no meningismusCardiovascular: normal heart sounds, regular rate rhythmRespiratory: aerating well, symmetric expansion, no distressAbdomen: soft, non-tenderExtremities: moves allNeuro/[employer]: alert, 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, normal speechSkin: dry, intact, normal temperaturePsychiatry: normal affect, normal mood Current MedicationsMedications:Active Meds + DC'd Last 24 HrsAcetazolamide (DIAMOX) 250 MG DAILY PO Furosemide (LASIX) 40 MG DAILY PO Potassium Chloride (POTASSIUM CHLORIDE 20MEQ TAB.ER) 20 MEQ Q2H PO (DC) Metoprolol Tartrate (LOPRESSOR) 25 MG Q12HR PO Acetazolamide (DIAMOX) 500 MG Q24H IV (DC) Furosemide (LASIX 40 mg/4 mL INJECTION) 40 MG DAILY IV (DC) Sterile Water (WATER FOR INJECTION) 5 ML ASDIR PRN IV Potassium Chloride (POTASSIUM CHLORIDE 20MEQ TAB.ER) 40 MEQ DAILY PRN PRN PO Insulin Glargine (Lantus/Semglee) 30 UNIT DAILY SUBQ Insulin Glargine (Lantus/Semglee) 20 UNIT BEDTIME SUBQ Insulin Human Lispro (HUMALOG) 0 AC HS SUBQ Dextrose/Water (DEXTROSE 10% IN WATER) 125 ML ASDIR PRN IV (CKD) Dextrose/Water (DEXTROSE 10% IN WATER) 250 ML ASDIR PRN IV (CKD) Glucagon (GLUCAGON) 1 MG ASDIR PRN IM Amiodarone HCl (CORDARONE) 200 MG BID PO Sterile Water (WATER FOR INJECTION) 5 ML ASDIR PRN IV Sterile Water (WATER FOR INJECTION) 5 ML ASDIR PRN IV Sodium Chloride (SODIUM CHLORIDE) 4 ML RTBID NEB Melatonin (Melatonin) 3 MG BEDTIME PO Sodium Chloride (SODIUM CHLORIDE) 10 ML BID IV Sodium Chloride (SODIUM CHLORIDE) 10 ML ASDIR PRN IV Pantoprazole (PROTONIX) 40 MG DAILY PO Dexmedetomidine/Sodium Chloride (PRECEDEX 1000MCG/NS 250ML) 250 ML ASDIR IV Bisacodyl (DULCOLAX) 10 MG DAILY PRN PRN RECTAL Lactulose (LACTULOSE) 20 GM DAILY PRN PRN PO Magnesium Hydroxide (MILK OF MAGNESIA) 30 ML DAILY PRN PRN PO Aspirin (ASPIRIN) 81 MG DAILY PO Clopidogrel Bisulfate (Plavix) 75 MG DAILY PO Cyanocobalamin (Vitamin B-12 500 mcg tab) 500 MCG DAILY PO Ferrous Sulfate (FERROUS SULFATE) 325 MG DAILY PO Metolazone (metOLazone) 5 MG DAILY PO Polyethylene Glycol (MIRALAX) 17 GM DAILY PO Atorvastatin Calcium (LIPITOR) 40 MG 2100 PO Docusate Sodium (DOCUSATE SODIUM) 100 MG BID PO Senna (SENOKOT) 17.6 MG BEDTIME PO Acetaminophen (TYLENOL) 650 MG Q4H PRN PRN PO Acetylcysteine (MUCOMYST FOR RT) 200 MG RTQ6H NEB Albuterol/Ipratropium (DUONEB) 3 ML RTQ6H NEB Bisacodyl (DULCOLAX) 10 MG ONCE PRN RECTAL Dopamine HCl/Dextrose (DOPamine 400MG/D5W 250ML) 250 ML ASDIR IV Milrinone Lactate/Dextrose (MILRINONE 20MG/D5W 100ML) 100 ML ASDIR IV (CKD) Vasopressin (VASOSTRICT 20 Unit/NS 100ML) 100 ML ASDIR IV (CKD) Acetaminophen (TYLENOL) 650 MG Q4H PRN PRN RECTAL Calcium Chloride (CALCIUM CHLORIDE) 1 GM ASDIR PRN IV Magnesium Sulfate (MAGNESIUM SULFATE 4GM/SWFI 100ML) 100 ML ASDIR PRN IV Magnesium Sulfate (MAGNESIUM SULFATE 2GM/SWFI 50ML) 50 ML ASDIR PRN IV Magnesium Sulfate/Dextrose (MAGNESIUM SULFATE 1GM/D5W 100ML) 100 ML ASDIR PRN IV Nitroglycerin/Dextrose (NITROGLYCERIN 50,000MCG/D5W 250ML) 250 ML ASDIR IV Norepinephrine Bitartrate (NOREPINEPHRINE 8 MG/NS 250 ML) 250 ML TITRATE IV Potassium Chloride (KCL 20MEQ/SWFI 100ML) 100 ML ASDIR PRN IV Sodium Bicarbonate (SODIUM BICARBONATE) 50 MEQ ASDIR PRN IV Ondansetron HCl (ZOFRAN) 4 MG Q6H PRN PRN IV ResultsFindings/Data:Laboratory Tests 01/06 01/06 01/06 01/06 01/05 1639 [...] 110 MG/DL) 170 H 200 H 105 162 H Calcium (8.0 [...] (Auto) (14.0 - 32.0 %) 7.8 L Colquitt % (Auto) (4.8 - 9.0 %) 11.7 H Eos % (Auto) (0.3 - 3.7 %) 1.6 Baso % (Auto) (0.0 - 2.0 %) 0.3 Neut # (Auto) (2.0 - 7.6 x10 3/uL) 4.44 Lymph # (Auto) (1.0 - 3.8 x10 3/uL) 0.45 L [place]itt # (Auto) (0.1 - 0.8 x10 3/uL) 0.67 Eos # (Auto) (0.0 - 0.2 x10 3/uL) 0.09 Baso # (Auto) (0.0 - 0.2 x10 3/uL) 0.02 Abs Immat Gran (auto) (0.00 - 0.03 x10 3/uL) 0.07 H Add Manual Diff NO Immature Gran % (0.0 - 2.0 %) 1.2 Nucleated RBC % (0 - 0 %) 0.5 H Nucleated RBCs # (Man) (0.0 - 0.1 x10 3/uL) 0.03 Radiology data:Recent Impressions:ULTRASOUND - DUP VEIN RAJAN 01/06 0602 Report Impression - Status: SIGNED Entered: 01/06/2022626 IMPRESSION: No evidence of deep vein thrombosis. Impression By: [email or web address] - Boo Clay M.D. Diagnosis, Assessment PlanFree Text A P:AmbulateEncourage incentive spirometryDiuresis per nephrologyDischarge planning 01/05 Patient is sleepy but arousable and oriented.Respiratory support with nasal cannula 2 L. Wean to keep O2 sats greater 90%Echo to rule out pericardial effusionBLE venous Doppler to rule out DVTDiuresis per nephrology. Electrolytes replacedHopefully she can transfer to rehab tomorrow 01/06 Doing well, awake, no acute distressRemains on nasal cannula 3 L. O2 sats are 100%, wean O2 as toleratedEchocardiogram showed EF 55 to 59%BLE venous doppler negative for DVTAwaiting transfer to rehab at 1958 at 1031 RPT #:[id number] OF REPORTPRProgress [id number]:29:00G.[id number] e for patient vxjqMGPTMKLUIABEYS2100-75-40I68:58:34 HC ACL 2022-01-06 13:02:00 [id number] XcWHLpy8K1wT VVHG/vfiR/9InbV5oLh5Cdt51734-49-64H90:02:872754-[address] [address] PATIENT NAME: KIAH GILES ADMIT DATE: 12/17/21ACCOUNT NO: [id number] ROOM NO: .[facility] AGE: 76 REPORT TYPE: eECHOCARDIOGRAM REPORT SEX: F ADMITTING PHYSICIAN:Jeffry More MD ATTENDING PHYSICIAN:Jeffry More MD *[address] [address]Btwqn: [phone]: [phone] Limited Transthoracic Echocardiogram Patient: Kiah GilesStudy Date: 01/05/2022 BP: Location: COCCLURN: [id number] : 1945 Age: 76 Height: 64.2 in / 163 cmAccession#: [id number] Gender: F Weight: 259.6 lb / 118 kgBMI/BSA: 44.4 kg/m 2 / 2.38 m 2 *Ordering Physician: * Kena Macedo *Interpreting Physician: * Aruna Ramos MD*Curatorial Assistant: * Judie Zamudio [facility] Indications: R/O EFFUSION. Study data: Transthoracic echocardiogram, limited study. Procedure:Transthoracic echocardiography was performed. Images were obtained usinga Geotender cardiac ultrasound machine. Image quality was adequate. Limited 2Dand limited spectral Doppler. Location: Bedside. Patient status:Inpatient. Patient room number: 3363. Findings Left ventricle: The cavity size is normal. Systolic function is normal.The estimated ejection fraction is 55-59%.Right ventricle: Not well visualized. The cavity size is mildly tomoderately dilated. Pacer wire noted in the right ventricle.Ventricular septum: Abnormal septal motion.Left atrium: The atrium is dilated.PATIENT NAME: KIAH GILES Right atrium: The atrium is dilated. Pacer wire noted in right atrium.Mitral valve: There is a normally functioning bioprosthesis.Tricuspid valve: The valve is structurally normal.Pericardium: There is no pericardial effusion.Systemic veins:Inferior vena cava: The vessel is dilated. Respirophasic changes indimension are absent. Conclusions Summary: 1. Left ventricle: The cavity size is normal. Systolic function is normal. The estimated ejection fraction is 55-59%.2. Right ventricle: The cavity size is mildly to moderately dilated.3. Ventricular septum: Abnormal septal motion.4. Left atrium: The atrium is dilated.5. Right atrium: The atrium is dilated.6. Mitral valve: There is a normally functioning bioprosthesis. Prepared and electronically signed by Aruna Ramos MD01/06/2022 13:02 at 1302 PATIENT NAME: KIAH GILES :02:00G. [id number] for patient iv[id number]:03:22 [facility] 2022-01-06 11:31:00 [id number]/AWHicohGvMy/IMDMxLFjiROM 1kB4XW1nN2Ny cw4lMr1kDDRLZzmLTc2Vkhyy0460-15-58O80:31:[address] [facility] ([facility]Neph[facility] Progress NoteREPORT#:[id number] REPORT STATUS: SignedDATE:01/06/22 TIME: 1131 PATIENT: KIAH GILES UNIT #: [id number]#: [id number] [address] AGE: 76 SEX: F ATTEND: Jeffry More MDADM AUTHOR: Suki Fuchs MD * ALL edits or amendments must be made on the electronic/computer document * SubjectiveChief complaint:chest painHPI:This is a 76-year-old female who has past medical history of hypertension, diabetes, coronary artery disease, atrial fibrillation who presented with worsening shortness of breath and on further work-up was 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 She was withnormal kidney function prior to surgery and after her surgery she began to develop oliguria. Her procedure was done without any complications but after her surgery she did require pressor support for hypotension and she was intubated for respiratory acidosis and hypoxia and she was treated with vancomycin for infection treatment. When she was seen this morning she continued to have hypotension and her heart rate was paced by her permanent pacemaker and her urine output was 20 to 30/h. Her family at bedside denied anyhistory of kidney disease, kidney stone, chronic NSAID use or any urinary complaints. They also endorse that her blood pressure and diabetes were mostly controlled. 01/06Looking comfortable, tolerating orally.Walking with no difficulty. Objective GeneralVS/I O:Vital Signs: Date Time Temp Pulse Resp B/P [...] scale Measurement Method PATIENT WEIGHT: Weight (lb): 258Weight (oz): 13.16Weight (kg): 117.400 Physical ExamGeneral appearance: alert, awake, orientedHead/eyes: atraumatic, normocephalicENT: moist mucous membranes, normal noseNeck: no JVD, no lymphadenopathyCardiovascular: normal heart sounds, regular rate and rhythmRespiratory: aerating well, clear to auscultationAbdomen: soft, no pulsatile massGenitourinary: urinary catheterExtremities: no gangrene, no swelling Treatment Prophylaxis Treatment ProphylaxisDrain(s)/tube(s): Drain(s)/tube(s): chest (x3) Diagnosis, Assessment PlanFree Text A P:This is a 76-year-old female known to have hypertension, diabetes, atrial fibrillation, s/p permanent pacemaker and history of ablation presenting with shortness of breath and 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 Nephrology is following for: 1. Acute kidney injury: Most likely it is prerenal (cardiorenal), she has been hypotensive postoperatively with requirement for pressor support and inotropic support. Plan is to increase inotropic support or pressor support to bring meanarterial pressure above 65 and give albumin with Lasix to see if it helps him diurese. If he does not respond to higher dose Lasix with albumin then I will consider starting him on CRRT to prevent hyper volemia. 2. Hypervolemia: Plan is to give Lasix and if he does not respond to start him on CRRT for extra fluid removal. 3. His electrolytes were all reviewed to be in normal range plan was to monitorand replace as needed. 4. He was receiving vancomycin so plan was to monitor vancomycin trough levels to prevent ATN. 5/ Metabolic alkalosis secondary to diuretics : Plan to give acetazoleamide if worsening. . . Acute kidney injury: Resolved, she is responding to lasix. 2. Hypervolemia: Plan to continue lasix as tolerated.Today she was on low dose daily lasix. 3. Hypokalemia/hypomagnesemia:secondary to diuretics, plan was to monitor and replace as needed. 4. Metabolic alkalosis secondary to diuretics : acetazoleamide vnerzkxeo6101/03. Acute kidney injury: Resolved, she is responding to lasix. 2. Hypervolemia: Plan to continue lasix as tolerated.Today she was on low dose daily lasix. 3. Hypokalemia/hypomagnesemia:secondary to diuretics, plan was to monitor and replace as needed. 4. Metabolic alkalosis secondary to diuretics : acetazoleamide continued.Plan was to continue same as patient stable from volume and electrolyte standpoint. . Acute kidney injury: Resolved, she is responding to lasix. 2. Hypervolemia: Plan to continue lasix as tolerated.Today she was on low dose daily lasix. 3. Hypokalemia/hypomagnesemia:secondary to diuretics, plan was to monitor and replace as needed. 4. Metabolic alkalosis secondary to diuretics : acetazoleamide continued.Plan was to continue same as patient stable from volume and electrolyte standpoint. . Acute kidney injury: Resolved, she is responding to lasix. 2. Hypervolemia: Plan to continue lasix as tolerated.Today she was on low dose daily lasix. 3. Hypokalemia/hypomagnesemia:secondary to diuretics, plan was to monitor and replace as needed. 4. Metabolic alkalosis secondary to diuretics : acetazoleamide continued.Plan was to continue same as patient stable from volume and electrolyte standpoint. . Acute kidney injury: Resolved, she is responding to lasix. 2. Hypervolemia: Plan to continue lasix as tolerated.Today she was on low dose daily lasix.Switched IV to PO as she should respond to both at current volume status. 3. Hypokalemia/hypomagnesemia:secondary to diuretics, plan was to monitor and replace as needed. 4. Metabolic alkalosis secondary to diuretics : acetazoleamide continued. Consultants: cardiology, cardiovascular surgery, critical/assembler unit at 1419 RPT #:[id number] OF REPORTPRProgress [id number]:31:00G.[id number] e for patient znkmBUXIJAWHDDOAVB1749-55-79X94:19:59 HC ACL 2022-01-06 11:14:00 [id number]+[id number] 3yyMcGBoFqyT fnY2rJQ09b6bfg9yDydizULl5715-89-49Q52:14:00 [facility]Hospital[facility] Progress NoteREPORT#:[id number] REPORT STATUS: SignedDATE:01/06/22 TIME: 1114 PATIENT: KIAH GILES UNIT #: [id number]#: [id number] [address] AGE: 76 SEX: F ATTEND: Jeffry More AUTHOR: Meryl Rosa MD * ALL edits or amendments must be made on the electronic/computer document * SubjectiveChief complaint:she sit on the chair . acute respiratory failure --post CABGrehab placement -- pending bed -- may be tursdayHPI: 76 years old female with PMH of macular degeneration, obesity, obstructive sleepapnea (CPAP at home), former smoker, hypertension, hyperlipidemia, diabetes, Crohn's disease, chronic atrial fibrillation status post 3 ablations in the past(on Xarelto), pacemaker placement is admitted to the hospital post cardiac cath . she need CABG . she had sob for years . sob got worse . she was [place] the [place] . she had cath 3 weeks ago . she was reffered to here for stents placement . she had cath yesterday . it show multiple vessels CAD . she is recommend CABG . she still feel sob . no cp no nausea no vomiting no fever no abdominal pain no dizziness . Review of SystemsConstitutional:Reports: generalized weakness. Denies: fever, lethargy. Respiratory:Reports: DOUGLASS (dyspnea on exertion), SOB. Denies: wheezing. Cardiovascular:Reports: DOUGLASS (dyspnea on exertion), edema. Denies: chest pain, orthopnea, palpitations. GI:Reports: nausea. Denies: abdominal pain, vomiting. :Denies: dysuria, flank pain, frequency. Neuro:Denies: dizziness. Objective GeneralVS/I O:Vital Signs: Date Time Temp Pulse Resp B/P B/P Pulse O2 O2 Flow FiO2 Mean Ox Delivery Rate 01/06 0909 [...] scale Measurement Method PATIENT WEIGHT: Weight (lb): 258Weight (oz): 13.16Weight (kg): 117.400 Medications:Active Meds + DC'd Last 24 HrsPotassium Chloride (POTASSIUM CHLORIDE 20MEQ TAB.ER) 20 MEQ Q2H PO (DC) Metoprolol Tartrate (LOPRESSOR) 25 MG Q12HR PO Acetazolamide (DIAMOX) 500 MG Q24H IV Furosemide (LASIX 40 mg/4 mL INJECTION) 40 MG DAILY IV Sterile Water (WATER FOR INJECTION) 5 ML ASDIR PRN IV Potassium Chloride (POTASSIUM CHLORIDE 20MEQ TAB.ER) 40 MEQ DAILY PRN PRN PO Insulin Glargine (Lantus/Semglee) 30 UNIT DAILY SUBQ Insulin Glargine (Lantus/Semglee) 20 UNIT BEDTIME SUBQ Insulin Human Lispro (HUMALOG) 0 AC HS SUBQ Dextrose/Water (DEXTROSE 10% IN WATER) 125 ML ASDIR PRN IV (CKD) Dextrose/Water (DEXTROSE 10% IN WATER) 250 ML ASDIR PRN IV (CKD) Glucagon (GLUCAGON) 1 MG ASDIR PRN IM Amiodarone HCl (CORDARONE) 200 MG BID PO Sterile Water (WATER FOR INJECTION) 5 ML ASDIR PRN IV Sterile Water (WATER FOR INJECTION) 5 ML ASDIR PRN IV Sodium Chloride (SODIUM CHLORIDE) 4 ML RTBID NEB Melatonin (Melatonin) 3 MG BEDTIME PO Sodium Chloride (SODIUM CHLORIDE) 10 ML BID IV Sodium Chloride (SODIUM CHLORIDE) 10 ML ASDIR PRN IV Pantoprazole (PROTONIX) 40 MG DAILY PO Dexmedetomidine/Sodium Chloride (PRECEDEX 1000MCG/NS 250ML) 250 ML ASDIR IV Bisacodyl (DULCOLAX) 10 MG DAILY PRN PRN RECTAL Lactulose (LACTULOSE) 20 GM DAILY PRN PRN PO Magnesium Hydroxide (MILK OF MAGNESIA) 30 ML DAILY PRN PRN PO Aspirin (ASPIRIN) 81 MG DAILY PO Clopidogrel Bisulfate (Plavix) 75 MG DAILY PO Cyanocobalamin (Vitamin B-12 500 mcg tab) 500 MCG DAILY PO Ferrous Sulfate (FERROUS SULFATE) 325 MG DAILY PO Metolazone (metOLazone) 5 MG DAILY PO Polyethylene Glycol (MIRALAX) 17 GM DAILY PO Atorvastatin Calcium (LIPITOR) 40 MG 2100 PO Docusate Sodium (DOCUSATE SODIUM) 100 MG BID PO Senna (SENOKOT) 17.6 MG BEDTIME PO Acetaminophen (TYLENOL) 650 MG Q4H PRN PRN PO Acetylcysteine (MUCOMYST FOR RT) 200 MG RTQ6H NEB Albuterol/Ipratropium (DUONEB) 3 ML RTQ6H NEB Bisacodyl (DULCOLAX) 10 MG ONCE PRN RECTAL Dopamine HCl/Dextrose (DOPamine 400MG/D5W 250ML) 250 ML ASDIR IV Milrinone Lactate/Dextrose (MILRINONE 20MG/D5W 100ML) 100 ML ASDIR IV (CKD) Vasopressin (VASOSTRICT 20 Unit/NS 100ML) 100 ML ASDIR IV (CKD) Acetaminophen (TYLENOL) 650 MG Q4H PRN PRN RECTAL Calcium Chloride (CALCIUM CHLORIDE) 1 GM ASDIR PRN IV Magnesium Sulfate (MAGNESIUM SULFATE 4GM/SWFI 100ML) 100 ML ASDIR PRN IV Magnesium Sulfate (MAGNESIUM SULFATE 2GM/SWFI 50ML) 50 ML ASDIR PRN IV Magnesium Sulfate/Dextrose (MAGNESIUM SULFATE 1GM/D5W 100ML) 100 ML ASDIR PRN IV Nitroglycerin/Dextrose (NITROGLYCERIN 50,000MCG/D5W 250ML) 250 ML ASDIR IV Norepinephrine Bitartrate (NOREPINEPHRINE 8 MG/NS 250 ML) 250 ML TITRATE IV Potassium Chloride (KCL 20MEQ/SWFI 100ML) 100 ML ASDIR PRN IV Sodium Bicarbonate (SODIUM BICARBONATE) 50 MEQ ASDIR PRN IV Ondansetron HCl (ZOFRAN) 4 MG Q6H PRN PRN IV Physical ExamGeneral appearance: alert, awake, orientedHead/Eyes: atraumatic, normal conjunctiva/sclera, normal eyelids/periorb., normocephalicNeck: full range of motion, non-tender, no JVDCardiovascular: normal heart sounds, regular rate rhythmRespiratory: decreased breath sounds, clear to auscultationAbdomen: non-tender, normal bowel sounds, soft, no distentionExtremities: edema, moves all, no calf tendernessMusculoskeletal: decreased ROMNeuro/[employer]: alert, 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Skin: dry, intactPsychiatry: normal affect, normal mood ResultsFindings/Data:Laboratory Tests 01/06 01/06 01/05 01/05 01/05 0757 [...] 110 MG/DL) 105 162 H 140 H 215 H Calcium (8.0 - 10.5 mg/dL) 9.4 [...] (Auto) (14.0 - 32.0 %) 7.8 L Colquitt % (Auto) (4.8 - 9.0 %) 11.7 H Eos % (Auto) (0.3 - 3.7 %) 1.6 Baso % (Auto) (0.0 - 2.0 %) 0.3 Neut # (Auto) (2.0 - 7.6 x10 3/uL) 4.44 Lymph # (Auto) (1.0 - 3.8 x10 3/uL) 0.45 L [place]itt # (Auto) (0.1 - 0.8 x10 3/uL) 0.67 Eos # (Auto) (0.0 - 0.2 x10 3/uL) 0.09 Baso # (Auto) (0.0 - 0.2 x10 3/uL) 0.02 Abs Immat Gran (auto) (0.00 - 0.03 x10 3/uL) 0.07 H Add Manual Diff NO Immature Gran % (0.0 - 2.0 %) 1.2 Nucleated RBC % (0 - 0 %) 0.5 H Nucleated RBCs # (Man) (0.0 - 0.1 x10 3/uL) 0.03 Radiology data:Recent Impressions:ULTRASOUND - DUP VEIN RAJAN 01/06 0602 Report Impression - Status: SIGNED Entered: 01/06/2022 0627 IMPRESSION: No evidence of deep vein thrombosis. Impression By: [email or web address] - Boo Clay M.D. Treatment Prophylaxis Treatment ProphylaxisDrain(s)/tube(s): Drain(s)/tube(s): chest (x3) Diagnosis, Assessment PlanConsultants: cardiology, cardiovascular surgery, critical/assembler unit Free Text DxA P NotesFree text DxA P notes: 76 years old female with PMH of macular degeneration, obesity, obstructive sleepapnea (CPAP at home), former smoker, hypertension, hyperlipidemia, diabetes, Crohn's disease, chronic atrial fibrillation status post 3 ablations in the past(on Xarelto), pacemaker placement CAD -- multiple vesssels HTNDM HLDCrohn's diseasechronic atrial fibrillation status post 3 ablationsmacular degenerationobesityobstructive sleep apneaacute respiratory failure --post surgery severe mitral valve [...] MVR (31 Magna valve), CABG x 1 (ROBERTS-LAD), ILAA and pericardectomy -- she remain intubated on the vent -- chest tube are in place -on levophed and epinephrine drip -- monitor in CCU 12/20- she was extubated --on bipap now -- NPO --off Levophed/epinephrine, continue vasopressin, inotropes with milrinone, -- chest tube remain in place -- she is stable post surgery 12/21-- she is on high flow O2 -- edema --lasix --chest tube in place --- she is hemodynamic stable -- continue monitor in CCU 12/22- she remain on high O2 CXR show worsening pulmonary venous vascular congestion. --lasix iv tid -- chest tube are [...] drip as nurse -- continue supportive care 12/27On lasix and insulin drips. Back on lantus dose BID, trend glucose.Continue PT/OT.12/28Increase lantus BID. 12/29-- she remain on bipap [...] -- continue PT/OT -- rehab --pending bed 01/05Potassium low, replace, labs AM.Continue PT/OT and await placement. 01/06- replace K -- continue PT/OT -- rehab placement --pending at 1116 RPT #:[id number] OF REPORTPRProgress [id number]:14:00G.[id number] e for patient mswdMIHJWHWVOFUAAN9753-24-59A65:17:13 [facility] 2022-01-05 18:48:00 [id number]/lmjAZH4NQ7Sggb IFGGrZPx8ZIt HXKGknDF2aSrDTbZMC82sukO4339-28-24U94:48:[address] [facility] ([facility]Nephrology Progress NoteREPORT#:[id number] REPORT STATUS: SignedDATE:01/05/22 TIME: 1847 PATIENT: KIAH GILES UNIT #: [id number]#: [id number] [address] AGE: 76 SEX: F ATTEND: Jeffry More AUTHOR: Suki Fuchs MD * ALL edits or amendments must be made on the electronic/computer document * SubjectiveChief complaint:chest painHPI:This is a 76-year-old female who has past medical history of hypertension, diabetes, coronary artery disease, atrial fibrillation who presented with worsening shortness of breath and on further work-up was 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 She was withnormal kidney function prior to surgery and after her surgery she began to develop oliguria. Her procedure was done without any complications but after her surgery she did require pressor support for hypotension and she was intubated for respiratory acidosis and hypoxia and she was treated with vancomycin for infection treatment. When she was seen this morning she continued to have hypotension and her heart rate was paced by her permanent pacemaker and her urine output was 20 to 30/h. Her family at bedside denied anyhistory of kidney disease, kidney stone, chronic NSAID use or any urinary complaints. They also endorse that her blood pressure and diabetes were mostly controlled. 01/05Looking comfortable, tolerating orally.Walking with no difficulty. Objective GeneralVS/I O:Vital Signs: Date Time Temp Pulse Resp B/P B/P Pulse O2 O2 Flow FiO2 Mean Ox Delivery Rate 01/06 2036 [...] scale Measurement Method PATIENT WEIGHT: Weight (lb): 260Weight (oz): 9.38Weight (kg): 118.200 Physical ExamGeneral appearance: alert, awake, orientedHead/eyes: atraumatic, normocephalicENT: moist mucous membranes, normal noseNeck: no JVD, no lymphadenopathyCardiovascular: normal heart sounds, regular rate and rhythmRespiratory: aerating well, clear to auscultationAbdomen: soft, no pulsatile massGenitourinary: urinary catheterExtremities: no gangrene, no swelling Treatment Prophylaxis Treatment ProphylaxisDrain(s)/tube(s): Drain(s)/tube(s): chest (x3) Diagnosis, Assessment PlanFree Text A P:This is a 76-year-old female known to have hypertension, diabetes, atrial fibrillation, s/p permanent pacemaker and history of ablation presenting with shortness of breath and 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 Nephrology is following for: 1. Acute kidney injury: Most likely it is prerenal (cardiorenal), she has been hypotensive postoperatively with requirement for pressor support and inotropic support. Plan is to increase inotropic support or pressor support to bring meanarterial pressure above 65 and give albumin with Lasix to see if it helps him diurese. If he does not respond to higher dose Lasix with albumin then I will consider starting him on CRRT to prevent hyper volemia. 2. Hypervolemia: Plan is to give Lasix and if he does not respond to start him on CRRT for extra fluid removal. 3. His electrolytes were all reviewed to be in normal range plan was to monitorand replace as needed. 4. He was receiving vancomycin so plan was to monitor vancomycin trough levels to prevent ATN. 5/ Metabolic alkalosis secondary to diuretics : Plan to give acetazoleamide if worsening. . . Acute kidney injury: Resolved, she is responding to lasix. 2. Hypervolemia: Plan to continue lasix as tolerated.Today she was on low dose daily lasix. 3. Hypokalemia/hypomagnesemia:secondary to diuretics, plan was to monitor and replace as needed. 4. Metabolic alkalosis secondary to diuretics : acetazoleamide [id number]. Acute kidney injury: Resolved, she is responding to lasix. 2. Hypervolemia: Plan to continue lasix as tolerated.Today she was on low dose daily lasix. 3. Hypokalemia/hypomagnesemia:secondary to diuretics, plan was to monitor and replace as needed. 4. Metabolic alkalosis secondary to diuretics : acetazoleamide continued.Plan was to continue same as patient stable from volume and electrolyte standpoint. . Acute kidney injury: Resolved, she is responding to lasix. 2. Hypervolemia: Plan to continue lasix as tolerated.Today she was on low dose daily lasix. 3. Hypokalemia/hypomagnesemia:secondary to diuretics, plan was to monitor and replace as needed. 4. Metabolic alkalosis secondary to diuretics : acetazoleamide continued.Plan was to continue same as patient stable from volume and electrolyte standpoint. . Acute kidney injury: Resolved, she is responding to lasix. 2. Hypervolemia: Plan to continue lasix as tolerated.Today she was on low dose daily lasix. 3. Hypokalemia/hypomagnesemia:secondary to diuretics, plan was to monitor and replace as needed. 4. Metabolic alkalosis secondary to diuretics : acetazoleamide continued.Plan was to continue same as patient stable from volume and electrolyte standpoint. Consultants: cardiology, cardiovascular surgery, critical/assembler unit at 2152 RPT #:[id number] OF REPORTPRProgress [id number]:48:00G.[id number] e for patient [id number]:59:00 [facility] ACL 2022-01-05 13:36:00 [id number]+[id number] Ei6HRVSwym9R aX2N89jId2CjiCsHOZKgwmZw8946-52-50S15:36:00 [facility] ProgREPORT#:[id number] REPORT STATUS: SignedDATE:01/05/22 TIME: 133 PATIENT: KIAH GILES UNIT #: [id number]#: [id number] [address] [birth year] AGE: 76 SEX: F ATTEND: Jeffry More AUTHOR: Kena Macedo VISUAL EFFECTS ARTIST * ALL edits or amendments must be made on the electronic/computer document * GeneralStatus post:1. Mitral valve replacement (31 Magna valve).2. Coronary artery bypass graft surgery x1 (ROBERTS to LAD).3. Isolation of left atrial appendage.4. Pericardiectomy. SubjectiveChief complaint:Follow up MVR Review of SystemsConstitutional:Denies: fever, malaise. Allergy/Immun:Denies: allergic reaction. ENT:Denies: sore throat. Respiratory:Denies: SOB. GI:Denies: abdominal pain. Heme:Denies: bleeding. Neuro:Denies: focal weakness, headache. All systems rev neg: except as marked Objective GeneralVS/I OLast Documented: Result Date Time Pulse Ox 98 01/05 1155 B/P 151/82 01/05 1155 B/P Mean 105.1 [...] scale Measurement Method PATIENT WEIGHT: Weight (lb): 260Weight (oz): 9.38Weight (kg): 118.200 Physical ExamGeneral appearance: obese, alert, oriented, mental status normal, no respiratorydistressWound/incision: Location:sternal Site condition: edges approximated, incision intact, no drainageHEENT: anictericNeck: supple/no meningismusCardiovascular: normal heart sounds, regular rate rhythmRespiratory: aerating well, symmetric expansion, no distressAbdomen: soft, non-tenderExtremities: moves allNeuro/CAPTAIN FIRE PREVENTION BUREAU: alert, 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, normal speechSkin: dry, intact, normal temperaturePsychiatry: normal affect, normal mood Current MedicationsMedications:Active Meds + DC'd Last 24 HrsPotassium Chloride (POTASSIUM CHLORIDE 20MEQ TAB.ER) 40 MEQ ONCE ONE PO (DC) Potassium Chloride (POTASSIUM CHLORIDE 20MEQ TAB.ER) 40 MEQ ONCE ONE PO (DC) Metoprolol Tartrate (LOPRESSOR) 25 MG Q12HR PO Acetazolamide (DIAMOX) 500 MG Q24H IV Furosemide (LASIX 40 mg/4 mL INJECTION) 40 MG DAILY IV Sterile Water (WATER FOR INJECTION) 5 ML ASDIR PRN IV Potassium Chloride (POTASSIUM CHLORIDE 20MEQ TAB.ER) 40 MEQ DAILY PRN PRN PO Insulin Glargine (Lantus/Semglee) 30 UNIT DAILY SUBQ Insulin Glargine (Lantus/Semglee) 20 UNIT BEDTIME SUBQ Insulin Human Lispro (HUMALOG) 0 AC HS SUBQ Dextrose/Water (DEXTROSE 10% IN WATER) 125 ML ASDIR PRN IV (CKD) Dextrose/Water (DEXTROSE 10% IN WATER) 250 ML ASDIR PRN IV (CKD) Glucagon (GLUCAGON) 1 MG ASDIR PRN IM Amiodarone HCl (CORDARONE) 200 MG BID PO Sterile Water (WATER FOR INJECTION) 5 ML ASDIR PRN IV Sterile Water (WATER FOR INJECTION) 5 ML ASDIR PRN IV Sodium Chloride (SODIUM CHLORIDE) 4 ML RTBID NEB Melatonin (Melatonin) 3 MG BEDTIME PO Sodium Chloride (SODIUM CHLORIDE) 10 ML BID IV Sodium Chloride (SODIUM CHLORIDE) 10 ML ASDIR PRN IV Pantoprazole (PROTONIX) 40 MG DAILY PO Dexmedetomidine/Sodium Chloride (PRECEDEX 1000MCG/NS 250ML) 250 ML ASDIR IV Bisacodyl (DULCOLAX) 10 MG DAILY PRN PRN RECTAL Lactulose (LACTULOSE) 20 GM DAILY PRN PRN PO Magnesium Hydroxide (MILK OF MAGNESIA) 30 ML DAILY PRN PRN PO Aspirin (ASPIRIN) 81 MG DAILY PO Clopidogrel Bisulfate (Plavix) 75 MG DAILY PO Cyanocobalamin (Vitamin B-12 500 mcg tab) 500 MCG DAILY PO Ferrous Sulfate (FERROUS SULFATE) 325 MG DAILY PO Metolazone (metOLazone) 5 MG DAILY PO Polyethylene Glycol (MIRALAX) 17 GM DAILY PO Atorvastatin Calcium (LIPITOR) 40 MG 2100 PO Docusate Sodium (DOCUSATE SODIUM) 100 MG BID PO Senna (SENOKOT) 17.6 MG BEDTIME PO Acetaminophen (TYLENOL) 650 MG Q4H PRN PRN PO Acetylcysteine (MUCOMYST FOR RT) 200 MG RTQ6H NEB Albuterol/Ipratropium (DUONEB) 3 ML RTQ6H NEB Bisacodyl (DULCOLAX) 10 MG ONCE PRN RECTAL Dopamine HCl/Dextrose (DOPamine 400MG/D5W 250ML) 250 ML ASDIR IV Milrinone Lactate/Dextrose (MILRINONE 20MG/D5W 100ML) 100 ML ASDIR IV (CKD) Vasopressin (VASOSTRICT 20 Unit/NS 100ML) 100 ML ASDIR IV (CKD) Acetaminophen (TYLENOL) 650 MG Q4H PRN PRN RECTAL Calcium Chloride (CALCIUM CHLORIDE) 1 GM ASDIR PRN IV Magnesium Sulfate (MAGNESIUM SULFATE 4GM/SWFI 100ML) 100 ML ASDIR PRN IV Magnesium Sulfate (MAGNESIUM SULFATE 2GM/SWFI 50ML) 50 ML ASDIR PRN IV Magnesium Sulfate/Dextrose (MAGNESIUM SULFATE 1GM/D5W 100ML) 100 ML ASDIR PRN IV Nitroglycerin/Dextrose (NITROGLYCERIN 50,000MCG/D5W 250ML) 250 ML ASDIR IV Norepinephrine Bitartrate (NOREPINEPHRINE 8 MG/NS 250 ML) 250 ML TITRATE IV Potassium Chloride (KCL 20MEQ/SWFI 100ML) 100 ML ASDIR PRN IV Sodium Bicarbonate (SODIUM BICARBONATE) 50 MEQ ASDIR PRN IV Ondansetron HCl (ZOFRAN) 4 MG Q6H PRN PRN IV ResultsFindings/Data:Laboratory Tests 01/05 01/05 01/05 01/04 01/04 1150 [...] (Auto) (14.0 - 32.0 %) 6.3 L [place]itt % (Auto) (4.8 - 9.0 %) 10.4 H Eos % (Auto) (0.3 - 3.7 %) 1.6 Baso % (Auto) (0.0 - 2.0 %) 0.4 Neut # (Auto) (2.0 - 7.6 x10 3/uL) 5.62 Lymph # (Auto) (1.0 - 3.8 x10 3/uL) 0.44 L [place] # (Auto) (0.1 - 0.8 x10 3/uL) 0.73 Eos # (Auto) (0.0 - 0.2 x10 3/uL) 0.11 Baso # (Auto) (0.0 - 0.2 x10 3/uL) 0.03 Abs Immat Gran (auto) (0.00 - 0.03 x10 3/uL) 0.10 H Add Manual Diff NO Immature Gran % (0.0 - 2.0 %) 1.4 Nucleated RBC % (0 - 0 %) 0.7 H Nucleated RBCs # (Man) (0.0 - 0.1 x10 3/uL) 0.05 Diagnosis, Assessment PlanFree Text A P:AmbulateEncourage incentive spirometryDiuresis per nephrologyDischarge planning 01/05 Patient is sleepy but arousable and oriented.Respiratory support with nasal cannula 2 L. Wean to keep O2 sats greater 90%Echo to rule out pericardial effusionBLE venous Doppler to rule out DVTDiuresis per nephrology. Electrolytes replacedHopefully she can transfer to rehab tomorrowConsultants: cardiology, cardiovascular surgery, critical/assembler unit at 1343 at 1010 RPT #:[id number] OF REPORTPRProgress [id number]:36:00G.[id number] e for patient oynqARRUNXHTTOFDUE6926-23-31R27:43:42 HC ACL 2022-01-05 11:04:00 [id number]++[id number]+[id number]+b VsMNnvFmkNbx CLFSi1gRx9xEMCJNfQylAR+I1238-02-85K87:04:[address] [facility] ([facility])Cardiology Progress NoteREPORT#:[id number] REPORT STATUS: SignedDATE:01/05/22 TIME: 1104 PATIENT: KIAH GILES UNIT #: [id number]#: [id number] ROOM[facility]BED: [facility] [place]-1DOB: [birth year] AGE: 76 SEX: F ATTEND: Jeffry More MDADM AUTHOR: Isabella Clemens * ALL edits or amendments must be made on the electronic/computer document * SubjectiveComments:OOB to chair, no acute issue overnight, still with significant bilateral lower extremity edema Objective GeneralVS/I O:24 hour I O ending at 0700: 01/05 0700 01/04 1900 Intake Total 250 450 Output Total 500 1200 Balance -250 -750 Intake, Oral 250 450 Number 2 Bowel Movements Output, Urine 500 1200 Patient 118.2 kg Weight Weight Standing scale Measurement Method Vital Signs: Date Time Temp Pulse Resp B/P B/P Pulse O2 O2 Flow FiO2 Mean Ox Delivery Rate 01/05 0930 100 Nasal 3 cannula 01/05 0800 Nasal 3 cannula 01/05 0754 36.4 75 23 136/78 97.0 94 Nasal cannula 01/05 0406 36.4 71 18 129/76 93.6 91 01/05 0329 72 99 40 01/05 0058 36.4 72 16 135/76 95.9 94 01/04 2145 Nasal 3 cannula 01/04 2120 69 94 40 01/04 2120 92 Nasal 4 cannula 01/04 205 36.4 74 18 133/73 92.9 93 01/04 1715 36.6 75 14 141/63 0.0 91 Nasal cannula 01/04 1559 98 Nasal 4 cannula 01/04 1129 100 Nasal 4 cannula PATIENT WEIGHT: Weight (lb): 260Weight (oz): 9.38Weight (kg): 118.200 Medications:Active Meds + DC'd Last 24 HrsPotassium Chloride (POTASSIUM CHLORIDE 20MEQ TAB.ER) 40 MEQ ONCE ONE PO (DC) Potassium Chloride (POTASSIUM CHLORIDE 20MEQ TAB.ER) 40 MEQ ONCE ONE PO (DC) Metoprolol Tartrate (LOPRESSOR) 25 MG Q12HR PO Acetazolamide (DIAMOX) 500 MG Q24H IV Furosemide (LASIX 40 mg/4 mL INJECTION) 40 MG DAILY IV Sterile Water (WATER FOR INJECTION) 5 ML ASDIR PRN IV Potassium Chloride (POTASSIUM CHLORIDE 20MEQ TAB.ER) 40 MEQ DAILY PRN PRN PO Insulin Glargine (Lantus/Semglee) 30 UNIT DAILY SUBQ Insulin Glargine (Lantus/Semglee) 20 UNIT BEDTIME SUBQ Insulin Human Lispro (HUMALOG) 0 AC HS SUBQ Dextrose/Water (DEXTROSE 10% IN WATER) 125 ML ASDIR PRN IV (CKD) Dextrose/Water (DEXTROSE 10% IN WATER) 250 ML ASDIR PRN IV (CKD) Glucagon (GLUCAGON) 1 MG ASDIR PRN IM Amiodarone HCl (CORDARONE) 200 MG BID PO Sterile Water (WATER FOR INJECTION) 5 ML ASDIR PRN IV Sterile Water (WATER FOR INJECTION) 5 ML ASDIR PRN IV Sodium Chloride (SODIUM CHLORIDE) 4 ML RTBID NEB Melatonin (Melatonin) 3 MG BEDTIME PO Sodium Chloride (SODIUM CHLORIDE) 10 ML BID IV Sodium Chloride (SODIUM CHLORIDE) 10 ML ASDIR PRN IV Pantoprazole (PROTONIX) 40 MG DAILY PO Dexmedetomidine/Sodium Chloride (PRECEDEX 1000MCG/NS 250ML) 250 ML ASDIR IV Bisacodyl (DULCOLAX) 10 MG DAILY PRN PRN RECTAL Lactulose (LACTULOSE) 20 GM DAILY PRN PRN PO Magnesium Hydroxide (MILK OF MAGNESIA) 30 ML DAILY PRN PRN PO Aspirin (ASPIRIN) 81 MG DAILY PO Clopidogrel Bisulfate (Plavix) 75 MG DAILY PO Cyanocobalamin (Vitamin B-12 500 mcg tab) 500 MCG DAILY PO Ferrous Sulfate (FERROUS SULFATE) 325 MG DAILY PO Metolazone (metOLazone) 5 MG DAILY PO Polyethylene Glycol (MIRALAX) 17 GM DAILY PO Atorvastatin Calcium (LIPITOR) 40 MG 2100 PO Docusate Sodium (DOCUSATE SODIUM) 100 MG BID PO Senna (SENOKOT) 17.6 MG BEDTIME PO Acetaminophen (TYLENOL) 650 MG Q4H PRN PRN PO Acetylcysteine (MUCOMYST FOR RT) 200 MG RTQ6H NEB Albuterol/Ipratropium (DUONEB) 3 ML RTQ6H NEB Bisacodyl (DULCOLAX) 10 MG ONCE PRN RECTAL Dopamine HCl/Dextrose (DOPamine 400MG/D5W 250ML) 250 ML ASDIR IV Milrinone Lactate/Dextrose (MILRINONE 20MG/D5W 100ML) 100 ML ASDIR IV (CKD) Vasopressin (VASOSTRICT 20 Unit/NS 100ML) 100 ML ASDIR IV (CKD) Acetaminophen (TYLENOL) 650 MG Q4H PRN PRN RECTAL Calcium Chloride (CALCIUM CHLORIDE) 1 GM ASDIR PRN IV Magnesium Sulfate (MAGNESIUM SULFATE 4GM/SWFI 100ML) 100 ML ASDIR PRN IV Magnesium Sulfate (MAGNESIUM SULFATE 2GM/SWFI 50ML) 50 ML ASDIR PRN IV Magnesium Sulfate/Dextrose (MAGNESIUM SULFATE 1GM/D5W 100ML) 100 ML ASDIR PRN IV Nitroglycerin/Dextrose (NITROGLYCERIN 50,000MCG/D5W 250ML) 250 ML ASDIR IV Norepinephrine Bitartrate (NOREPINEPHRINE 8 MG/NS 250 ML) 250 ML TITRATE IV Potassium Chloride (KCL 20MEQ/SWFI 100ML) 100 ML ASDIR PRN IV Sodium Bicarbonate (SODIUM BICARBONATE) 50 MEQ ASDIR PRN IV Ondansetron HCl (ZOFRAN) 4 MG Q6H PRN PRN IV Pacemaker: permanent Physical ExamGeneral appearance: obese, alert, awake, no acute distressENT: normal noseNeck: no JVDCardiovascular: CV assessment: pedal edema, regular rate and rhythmRespiratory: decreased breath sounds, on oxygen, shortness of breath, no distressAbdomen: obeseGenitourinary: no flank pain, no urinary catheterUpper extremity: UE assessment: normal temperature, no edemaLower extremity: LE assessment: edemaNeuro/CAPTAIN FI[employer] PREVENTION BUREAU: alert, 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Skin: dryPsychiatry: normal affect, normal mood ResultsFindings/Data:Laboratory Tests 01/05 01/05 01/04 01/04 0749 0245 [...] (Auto) (14.0 - 32.0 %) 6.3 L [place]itt % (Auto) (4.8 - 9.0 %) 10.4 H Eos % (Auto) (0.3 - 3.7 %) 1.6 Baso % (Auto) (0.0 - 2.0 %) 0.4 Neut # (Auto) (2.0 - 7.6 x10 3/uL) 5.62 Lymph # (Auto) (1.0 - 3.8 x10 3/uL) 0.44 L [place] # (Auto) (0.1 - 0.8 x10 3/uL) 0.73 Eos # (Auto) (0.0 - 0.2 x10 3/uL) 0.11 Baso # (Auto) (0.0 - 0.2 x10 3/uL) 0.03 Abs Immat Gran (auto) (0.00 - 0.03 x10 3/uL) 0.10 H Add Manual Diff NO Immature Gran % (0.0 - 2.0 %) 1.4 Nucleated RBC % (0 - 0 %) 0.7 H Nucleated RBCs # (Man) (0.0 - 0.1 x10 3/uL) 0.05 Laboratory Tests 01/05 0245 Chemistry Magnesium (1.80 - 2.40 mg/dL) 1.91 Telemetry Interpretation:V paced Diagnosis, Assessment PlanPlan discussed with: patient, consultants (renal) Free Text DxA P NotesFree Text DxA P Notes:Ms Chan is a 76 y/o Femal w/ PMHx: CAD, HLD, T2DM, RONA (CPAP at home), smoker,Crohn's disease, AF s/p ablation (on Xarelto), s/p PPM and lymphedema. Dr. Ramos is consulted for CAD s/p CABG, MVR. 1. CAD s/p CABG, MVR, and ILAA. post-op per CTS and critical careOn Plavix, aspirin, beta-delma, statinvolume management per Nephrology negative fluid balance 2. Chronic AF s/p PPM/ablation. had ILAA during bypass no need for AC 3. Hypertension continue metoprolol tartrate to 25 mg BID 4. HyperlipidemiaContinue statins. 5. Crohn's disease. Per IM. 6. MARCELLO - resolvingper Nephrology 7. Resp insufficiencyBiPAP as neededon Nasal cannulaSlowly improving 8. Acute on chronic diastolic CHF/volume overloadremains volume overloadeddiuretic management per nephrology/CTS Slowly improvingcontinue supportive carePT OTawaiting inpatient rehab at 1410 at 1459 RPT #:[id number] OF REPORTPRProgress [id number]:04:00G.[id number] e for patient wjkkGBZABIRNYOKBWV6538-83-38S43:10:19 [facility] 2022-01-05 10:06:00 [id number]+t3p4GMg 1PX091pMyX6M [id number]:06:[address] [facility] ([facility]ENTERHospitalist Progress NoteREPORT#:[id number] REPORT STATUS: SignedDATE:01/05/22 TIME: 1006 PATIENT: KIAH GILES UNIT #: [id number]#: [id number] [address] [birth year] AGE: 76 SEX: F ATTEND: Alkarra,Jeffry Katiuska MDADM AUTHOR: Kat Carreon APRN * ALL edits or amendments must be made on the electronic/computer document * SubjectiveChief complaint:Weak, sleepy today. Didnt sleep well because complaining of bipap. acute respiratory failure --post CABGrehab placement -- pending bed -- may be tursdayHPI: 76 years old female with PMH of macular degeneration, obesity, obstructive sleepapnea (CPAP at home), former smoker, hypertension, hyperlipidemia, diabetes, Crohn's disease, chronic atrial fibrillation status post 3 ablations in the past(on Xarelto), pacemaker placement is admitted to the hospital post cardiac cath . she need CABG . she had sob for years . sob got worse . [place] was [place] the [place] . she had cath 3 weeks ago . she was reffered to here for stents placement . she had cath yesterday . it show multiple vessels CAD . she is recommend CABG . she still feel sob . no cp no nausea no vomiting no fever no abdominal pain no dizziness . Review of SystemsConstitutional:Reports: generalized weakness. Denies: chills, fever. Skin:Denies: itching, rash. Respiratory:Reports: DOUGLASS (dyspnea on exertion). Denies: SOB. Cardiovascular:Denies: chest pain, palpitations. GI:Denies: abdominal pain, nausea, vomiting. :Denies: dysuria, frequency. Psych:Reports: insomnia. Denies: anxiety. Objective GeneralVS/I O:Vital Signs: Date Time Temp Pulse Resp B/P B/P Pulse O2 O2 Flow FiO2 Mean Ox Delivery Rate 01/05 0754 [...] scale Measurement Method PATIENT WEIGHT: Weight (lb): 260Weight (oz): 9.38Weight (kg): 118.200 Medications:Active Meds + DC'd Last 24 HrsPotassium Chloride (POTASSIUM CHLORIDE 20MEQ TAB.ER) 40 MEQ ONCE ONE PO (DC) Potassium Chloride (POTASSIUM CHLORIDE 20MEQ TAB.ER) 40 MEQ ONCE ONE PO (DC) Metoprolol Tartrate (LOPRESSOR) 25 MG Q12HR PO Acetazolamide (DIAMOX) 500 MG Q24H IV Furosemide (LASIX 40 mg/4 mL INJECTION) 40 MG DAILY IV Sterile Water (WATER FOR INJECTION) 5 ML ASDIR PRN IV Potassium Chloride (POTASSIUM CHLORIDE 20MEQ TAB.ER) 40 MEQ DAILY PRN PRN PO Insulin Glargine (Lantus/Semglee) 30 UNIT DAILY SUBQ Insulin Glargine (Lantus/Semglee) 20 UNIT BEDTIME SUBQ Insulin Human Lispro (HUMALOG) 0 AC HS SUBQ Dextrose/Water (DEXTROSE 10% IN WATER) 125 ML ASDIR PRN IV (CKD) Dextrose/Water (DEXTROSE 10% IN WATER) 250 ML ASDIR PRN IV (CKD) Glucagon (GLUCAGON) 1 MG ASDIR PRN IM Amiodarone HCl (CORDARONE) 200 MG BID PO Sterile Water (WATER FOR INJECTION) 5 ML ASDIR PRN IV Sterile Water (WATER FOR INJECTION) 5 ML ASDIR PRN IV Sodium Chloride (SODIUM CHLORIDE) 4 ML RTBID NEB Melatonin (Melatonin) 3 MG BEDTIME PO Sodium Chloride (SODIUM CHLORIDE) 10 ML BID IV Sodium Chloride (SODIUM CHLORIDE) 10 ML ASDIR PRN IV Pantoprazole (PROTONIX) 40 MG DAILY PO Dexmedetomidine/Sodium Chloride (PRECEDEX 1000MCG/NS 250ML) 250 ML ASDIR IV Bisacodyl (DULCOLAX) 10 MG DAILY PRN PRN RECTAL Lactulose (LACTULOSE) 20 GM DAILY PRN PRN PO Magnesium Hydroxide (MILK OF MAGNESIA) 30 ML DAILY PRN PRN PO Aspirin (ASPIRIN) 81 MG DAILY PO Clopidogrel Bisulfate (Plavix) 75 MG DAILY PO Cyanocobalamin (Vitamin B-12 500 mcg tab) 500 MCG DAILY PO Ferrous Sulfate (FERROUS SULFATE) 325 MG DAILY PO Metolazone (metOLazone) 5 MG DAILY PO Polyethylene Glycol (MIRALAX) 17 GM DAILY PO Atorvastatin Calcium (LIPITOR) 40 MG 2100 PO Docusate Sodium (DOCUSATE SODIUM) 100 MG BID PO Senna (SENOKOT) 17.6 MG BEDTIME PO Acetaminophen (TYLENOL) 650 MG Q4H PRN PRN PO Acetylcysteine (MUCOMYST FOR RT) 200 MG RTQ6H NEB Albuterol/Ipratropium (DUONEB) 3 ML RTQ6H NEB Bisacodyl (DULCOLAX) 10 MG ONCE PRN RECTAL Dopamine HCl/Dextrose (DOPamine 400MG/D5W 250ML) 250 ML ASDIR IV Milrinone Lactate/Dextrose (MILRINONE 20MG/D5W 100ML) 100 ML ASDIR IV (CKD) Vasopressin (VASOSTRICT 20 Unit/NS 100ML) 100 ML ASDIR IV (CKD) Acetaminophen (TYLENOL) 650 MG Q4H PRN PRN RECTAL Calcium Chloride (CALCIUM CHLORIDE) 1 GM ASDIR PRN IV Magnesium Sulfate (MAGNESIUM SULFATE 4GM/SWFI 100ML) 100 ML ASDIR PRN IV Magnesium Sulfate (MAGNESIUM SULFATE 2GM/SWFI 50ML) 50 ML ASDIR PRN IV Magnesium Sulfate/Dextrose (MAGNESIUM SULFATE 1GM/D5W 100ML) 100 ML ASDIR PRN IV Nitroglycerin/Dextrose (NITROGLYCERIN 50,000MCG/D5W 250ML) 250 ML ASDIR IV Norepinephrine Bitartrate (NOREPINEPHRINE 8 MG/NS 250 ML) 250 ML TITRATE IV Potassium Chloride (KCL 20MEQ/SWFI 100ML) 100 ML ASDIR PRN IV Sodium Bicarbonate (SODIUM BICARBONATE) 50 MEQ ASDIR PRN IV Ondansetron HCl (ZOFRAN) 4 MG Q6H PRN PRN IV Physical ExamGeneral appearance: alert, awake, oriented, no acute distressHead/Eyes: atraumatic, normal conjunctiva/sclera, normal eyelids/periorb., normocephalicNeck: full range of motion, non-tender, no JVDCardiovascular: normal heart sounds, regular rate rhythmRespiratory: decreased breath sounds, clear to auscultationAbdomen: non-tender, normal bowel sounds, soft, no distentionExtremities: edema, moves all, no calf tendernessMusculoskeletal: decreased ROMNeuro/CAPTAIN FI[employer] PRE[employer]ION B[employer]: alert, 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Skin: dry, intactPsychiatry: normal affect, normal mood ResultsFindings/Data:Laboratory Tests 01/055 2003 1534 1015 Chemistry Sodium (134 [...] (Auto) (14.0 - 32.0 %) 6.3 L [place] % (Auto) (4.8 - 9.0 %) 10.4 H Eos % (Auto) (0.3 - 3.7 %) 1.6 Baso % (Auto) (0.0 - 2.0 %) 0.4 Neut # (Auto) (2.0 - 7.6 x10 3/uL) 5.62 Lymph # (Auto) (1.0 - 3.8 x10 3/uL) 0.44 L [place] # (Auto) (0.1 - 0.8 x10 3/uL) 0.73 Eos # (Auto) (0.0 - 0.2 x10 3/uL) 0.11 Baso # (Auto) (0.0 - 0.2 x10 3/uL) 0.03 Abs Immat Gran (auto) (0.00 - 0.03 x10 3/uL) 0.10 H Add Manual Diff NO Immature Gran % (0.0 - 2.0 %) 1.4 Nucleated RBC % (0 - 0 %) 0.7 H Nucleated RBCs # (Man) (0.0 - 0.1 x10 3/uL) 0.05 Diagnosis, Assessment PlanConsultants: cardiology, cardiovascular surgery, critical/intensivistPlan discussed with: patient, family, nurse Free Text DxA P NotesFree text DxA P notes: 76 years old female with PMH of macular degeneration, obesity, obstructive sleepapnea (CPAP at home), former smoker, hypertension, hyperlipidemia, diabetes, Crohn's disease, chronic atrial fibrillation status post 3 ablations in the past(on Xarelto), pacemaker placement CAD -- multiple vesssels HTNDM HLDCrohn's diseasechronic atrial fibrillation status post 3 ablationsmacular degenerationobesityobstructive sleep apneaacute respiratory failure --post surgery severe mitral valve [...] MVR (31 Magna valve), CABG x 1 (ROBERTS-LAD), ILAA and pericardectomy -- she remain intubated on the vent -- chest tube are in place -on levophed and epinephrine drip -- monitor in CCU 12/20- she was extubated --on bipap now -- NPO --off Levophed/epinephrine, continue vasopressin, inotropes with milrinone, -- chest tube remain in place -- she is stable post surgery 12/21-- she is on high flow O2 -- edema --lasix --chest tube in place --- she is hemodynamic stable -- continue monitor in CCU 12/22- she remain on high O2 CXR show worsening pulmonary venous vascular congestion. --lasix iv tid -- chest tube are [...] drip as nurse -- continue supportive care 12/27On lasix and insulin drips. Back on lantus dose BID, trend glucose.Continue PT/OT.12/28Increase lantus BID. 12/29-- she remain on bipap [...] -- continue PT/OT -- rehab --pending bed 01/05Potassium low, replace, labs AM.Continue PT/OT and await placement. at 1009 at 1340 RPT #:[id number] OF REPORTPRProgress [id number]:06:00G.[id number] e for patient [id number]:09:46 HC ACL 2022-01-05 07:48:00 [id number] xJOrkJmBvzh0 [id number]:48:00 [facility] CenterRehab Progress NoteREPORT#:[id number] REPORT STATUS: SignedDATE:01/05/22 TIME: 0748 PATIENT: KIAH GILES UNIT #: [id number]#: [id number] [address] [birth year] AGE: 76 SEX: F ATTEND: Jeffry More [facility] AUTHOR: Herberth Pantoja * ALL edits or amendments must be made on the electronic/computer document * SubjectiveChief complaint:rehab follow-upNADDoing fairSignificant generalized weakness, fatigueNo GOLD/N/V/D14 systems reviewed and negative except that mentioned above. Objective GeneralVS:Vital Signs: Date Time Temp Pulse Resp B/P B/P Pulse O2 O2 Flow FiO2 Mean Ox Delivery Rate 01/05 406 97.5 71 18 129/76 93.6 91 01/05 [...] Nasal 2 cannula PATIENT WEIGHT: Weight (lb): 260Weight (oz): 9.38Weight (kg): 118.200 Medications:Active Meds + DC'd Last 24 HrsPotassium Chloride (POTASSIUM CHLORIDE 20MEQ TAB.ER) 40 MEQ ONCE ONE PO (DC) Potassium Chloride (POTASSIUM CHLORIDE 20MEQ TAB.ER) 40 MEQ ONCE ONE PO (DC) Metoprolol Tartrate (LOPRESSOR) 25 MG Q12HR PO Acetazolamide (DIAMOX) 500 MG Q24H IV Furosemide (LASIX 40 mg/4 mL INJECTION) 40 MG DAILY IV Sterile Water (WATER FOR INJECTION) 5 ML ASDIR PRN IV Potassium Chloride (POTASSIUM CHLORIDE 20MEQ TAB.ER) 40 MEQ DAILY PRN PRN PO Insulin Glargine (Lantus/Semglee) 30 UNIT DAILY SUBQ Insulin Glargine (Lantus/Semglee) 20 UNIT BEDTIME SUBQ Insulin Human Lispro (HUMALOG) 0 AC HS SUBQ Dextrose/Water (DEXTROSE 10% IN WATER) 125 ML ASDIR PRN IV (CKD) Dextrose/Water (DEXTROSE 10% IN WATER) 250 ML ASDIR PRN IV (CKD) Glucagon (GLUCAGON) 1 MG ASDIR PRN IM Amiodarone HCl (CORDARONE) 200 MG BID PO Sterile Water (WATER FOR INJECTION) 5 ML ASDIR PRN IV Sterile Water (WATER FOR INJECTION) 5 ML ASDIR PRN IV Sodium Chloride (SODIUM CHLORIDE) 4 ML RTBID NEB Melatonin (Melatonin) 3 MG BEDTIME PO Sodium Chloride (SODIUM CHLORIDE) 10 ML BID IV Sodium Chloride (SODIUM CHLORIDE) 10 ML ASDIR PRN IV Pantoprazole (PROTONIX) 40 MG DAILY PO Dexmedetomidine/Sodium Chloride (PRECEDEX 1000MCG/NS 250ML) 250 ML ASDIR IV Bisacodyl (DULCOLAX) 10 MG DAILY PRN PRN RECTAL Lactulose (LACTULOSE) 20 GM DAILY PRN PRN PO Magnesium Hydroxide (MILK OF MAGNESIA) 30 ML DAILY PRN PRN PO Aspirin (ASPIRIN) 81 MG DAILY PO Clopidogrel Bisulfate (Plavix) 75 MG DAILY PO Cyanocobalamin (Vitamin B-12 500 mcg tab) 500 MCG DAILY PO Ferrous Sulfate (FERROUS SULFATE) 325 MG DAILY PO Metolazone (metOLazone) 5 MG DAILY PO Polyethylene Glycol (MIRALAX) 17 GM DAILY PO Atorvastatin Calcium (LIPITOR) 40 MG 2100 PO Docusate Sodium (DOCUSATE SODIUM) 100 MG BID PO Senna (SENOKOT) 17.6 MG BEDTIME PO Acetaminophen (TYLENOL) 650 MG Q4H PRN PRN PO Acetylcysteine (MUCOMYST FOR RT) 200 MG RTQ6H NEB Albuterol/Ipratropium (DUONEB) 3 ML RTQ6H NEB Bisacodyl (DULCOLAX) 10 MG ONCE PRN RECTAL Dopamine HCl/Dextrose (DOPamine 400MG/D5W 250ML) 250 ML ASDIR IV Milrinone Lactate/Dextrose (MILRINONE 20MG/D5W 100ML) 100 ML ASDIR IV (CKD) Vasopressin (VASOSTRICT 20 Unit/NS 100ML) 100 ML ASDIR IV (CKD) Acetaminophen (TYLENOL) 650 MG Q4H PRN PRN RECTAL Calcium Chloride (CALCIUM CHLORIDE) 1 GM ASDIR PRN IV Magnesium Sulfate (MAGNESIUM SULFATE 4GM/SWFI 100ML) 100 ML ASDIR PRN IV Magnesium Sulfate (MAGNESIUM SULFATE 2GM/SWFI 50ML) 50 ML ASDIR PRN IV Magnesium Sulfate/Dextrose (MAGNESIUM SULFATE 1GM/D5W 100ML) 100 ML ASDIR PRN IV Nitroglycerin/Dextrose (NITROGLYCERIN 50,000MCG/D5W 250ML) 250 ML ASDIR IV Norepinephrine Bitartrate (NOREPINEPHRINE 8 MG/NS 250 ML) 250 ML TITRATE IV Potassium Chloride (KCL 20MEQ/SWFI 100ML) 100 ML ASDIR PRN IV Sodium Bicarbonate (SODIUM BICARBONATE) 50 MEQ ASDIR PRN IV Ondansetron HCl (ZOFRAN) 4 MG Q6H PRN PRN IV Functional ProgressFunctional progress: Weightbearing: No Restriction Ambulation Distance: 40FT X5 Progression: Forward Assistance Level: Supervision or Set-up Gait Deviations: SHORT STEPS Advanced Progression: No Effects of Treatment: [place] of care decreased Function Improved Gait quality improved Cardio tolerance improved Post TX Precautions: In Chair Call Light in Reach Nursing Notified O2 on Pulse OX in Place Family/Sitter at Bedside Review Plan of Care: Yes PT charges: Gait Training [id number] Gait Cmt: PATIENT IN BEDSIDE CHAIR UPON [...] this is the patient's last treatment, this entry Start Time: 939 Stop Time: 1019 Treatment Time: (minutes) 0:40 Completed by: Chaz Delgado Conference/Supervising PT: Yes Supervising Therapist: Adebayo Reyes BED MOBILITY: No TRANSFERS: Yes Sit to/from stand: Minimal Assistance CARDIO-RESPIRATORY IMPAIRMENT Items determined to be OUTSIDE the Functional Limits are as follows: Patient on Telemetry?: Yes Rhythm: Normal Sinus Rhythm Physical ExamGeneral appearance: alert, awakePsych: alert, oriented x 3HEENT: anicteric, mucosal membranes moistNeck: supple, no JVDCardiovascular: regular rate rhythm, no murmurRespiratory: diminished breath sounds (bases ), on oxygen (Hi flow O2 )Abdomen: bowel sounds present, non-distended, soft, non-tenderSkin: dry, intact, no rash, incisions D/IMusculoskeletal - general: Musculoskeletal - general: swelling (BLE +3), moving all ext AGNeuro/CAPTAIN FIRE PREVENTION BUREAU: alert, 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, normal speech, no motor deficits, no sensory deficits ResultsFindings/Data:Laboratory Tests: 01/05 01/05 01/04 01/04 01/04 0330 0245 2003 1534 1015Chemistry Sodium (134 - 147 mEq/L) 145 Potassium [...] mg/dL) 9.4 Magnesium (1.80 - 2.40 mg/dL) 1.91Hematology WBC (4.5 - 11.0 x10 3/uL) 7.0 [...] (Auto) (14.0 - 32.0 %) 6.3 L Colquitt % (Auto) (4.8 - 9.0 %) 10.4 H Eos % (Auto) (0.3 - 3.7 %) 1.6 Baso % (Auto) (0.0 - 2.0 %) 0.4 Neut # (Auto) (2.0 - 7.6 x10 3/uL) 5.62 Lymph # (Auto) (1.0 - 3.8 x10 3/uL) 0.44 L [place] # (Auto) (0.1 - 0.8 x10 3/uL) 0.73 Eos # (Auto) (0.0 - 0.2 x10 3/uL) 0.11 Baso # (Auto) (0.0 - 0.2 x10 3/uL) 0.03 Abs Immat Gran (auto) (0.00 - 0.03 0.10 Hx10 3/uL) Add Manual Diff NO Immature Gran % (0.0 - 2.0 %) 1.4 Nucleated RBC % (0 - 0 %) 0.7 H Nucleated RBCs # (Man) (0.0 - 0.1 0.05x10 3/uL) Diagnosis, Assessment PlanFree Text A P:Critical illness myopathyStatus post CABG x1 Status post MVRGeneralized weaknessDeconditioningImpaired ADLs, mobility, gait, balance and endurance postoperative anemiaMorbid obesityCADHLD Crohn's diseaseChronic A. fibHypoxic respiratory failureHypokalemia Plan:Continue PT/OTOut of bed to chairWork on strength, bed mobility, transfers, gaitIncrease enduranceFall precautionsMonitor p.o. intake and nutritionStrict decubitus precautionsMonitor anemiaAdvance therapies as toleratedTolerating regular dietContinue diuresis- monitor strict I OsLasix IV 40 dailyWeigh patient dailyPotassium replenishedAdvance therapies as toleratedIRF consulted. Possible bed Wednesday Total time was 33 minutes > 50% with patient performing physical examination, discussing O2 requirements, plan of care, goals, therapies, progress, medications, labs, IRF. All questions answeredRehab attestation:. at 1713 RPT #:[id number] OF REPORTPRProgress [id number]:48:00G.[id number] e for patient [id number]09:13:52 ACL 2022-01-04 17:46:00 [id number] gRm6YcrmNXSw D4QuaGBt8VjfeMdLFnEFPzIm2319-39-21A04:46:00 [facility])Cardiothoracic Surgery ProgREPORT#:[id number] REPORT STATUS: SignedDATE:01/04/22 TIME: 174 PATIENT: KIAH GILES UNIT #: [id number]#: [id number] ROOM/BED: 3363-1DOB: [birth year] AGE: 76 SEX: F ATTEND: Jeffry More AUTHOR: René Romero MD * ALL edits or amendments must be made on the electronic/computer document * SubjectiveHPI:No new issues overnightOn 3 L supplemental oxygenGood pain control Review of SystemsConstitutional:Denies: fever, malaise. Allergy/Immun:Denies: allergic reaction. ENT:Denies: sore throat. Respiratory:Denies: SOB. GI:Denies: abdominal pain. Heme:Denies: bleeding. Neuro:Denies: focal weakness, headache. All systems rev neg: except as marked Objective GeneralVS/I OLast Documented: Result Date Time Pulse Ox 91 01/04 1715 B/P 141/63 01/04 1715 B/P Mean 0.0 01/04 1715 O2 Delivery Nasal cannula 01/04 1715 Temp 36.6 01/04 1715 Pulse 75 01/04 1715 Resp 14 01/04 1715 O2 Flow Rate 4 01/04 155 FiO2 40 01/034 24 hour I O ending at 0700: 01/04 0700 01/03 1900 Intake Total 400 Output Total 200 450 Balance -200 -50 Intake, Oral 400 Output, Urine 200 450 Patient 119.4 kg Weight Weight Standing scale Measurement Method PATIENT WEIGHT: Weight (lb): 263Weight (oz): 3.71Weight (kg): 119.400 Physical ExamGeneral appearance: alert, awake, orientedWound/incision: Location:sternal Site condition: edges approximated, incision intact, no drainageHEENT: anictericNeck: supple/no meningismusCardiovascular: normal heart sounds, regular rate rhythmRespiratory: aerating well, symmetric expansion, no distressAbdomen: soft, non-tenderExtremities: moves allNeuro/CAPTAIN FIRE PREVENTION BUREAU: alert, 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, normal speechSkin: dry, intact, normal temperaturePsychiatry: normal affect, normal mood Diagnosis, Assessment PlanFree Text A P:AmbulateEncourage incentive spirometryDiuresis per nephrologyDischarge planning at 1748 [facility] #:[id number] OF REPORTPRProgress [id number]:46:00G.[id number] e for patient rcinJZJJCKHGBICIMH5137-44-18X54:48:28 [facility] ACL 2022-01-04 12:25:00 [id number]+ +2gVZBWqKYak [id number]+c0L6032-96-09J68:25:[address] [facility] ([facility])Nephrology Progress NoteREPORT#:[id number] REPORT STATUS: SignedDATE:01/04/22 TIME: 1225 PATIENT: KIAH GILES UNIT #: [id number]#: [id number] [address] [birth year] AGE: 76 SEX: F ATTEND: Jeffry More AUTHOR: Suki Fuchs MD * ALL edits or amendments must be made on the electronic/computer document * SubjectiveChief complaint:chest painHPI:This is a 76-year-old female who has past medical history of hypertension, diabetes, coronary artery disease, atrial fibrillation who presented with worsening shortness of breath and on further work-up was 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 She was withnormal kidney function prior to surgery and after her surgery she began to develop oliguria. Her procedure was done without any complications but after her surgery she did require pressor support for hypotension and she was intubated for respiratory acidosis and hypoxia and she was treated with vancomycin for infection treatment. When she was seen this morning she continued to have hypotension and her heart rate was paced by her permanent pacemaker and her urine output was 20 to 30/h. Her family at bedside denied anyhistory of kidney disease, kidney stone, chronic NSAID use or any urinary complaints. They also endorse that her blood pressure and diabetes were mostly controlled. 01/04Looking comfortable, tolerating orally.Walking with no difficulty. Objective GeneralVS/I O:Vital Signs: Date Time Temp Pulse Resp B/P B/P Pulse O2 O2 Flow FiO2 Mean Ox Delivery Rate 01/04 1715 36.6 75 14 141/63 0.0 91 Nasal cannula 01/04 1559 98 Nasal 4 cannula 01/04 1129 100 Nasal 4 cannula 01/04 0905 94 Nasal 4 cannula 01/04 0856 36.6 70 14 142/64 0.0 92 Nasal cannula 01/04 0845 Nasal 2 cannula 01/04 06 36.3 70 18 141/75 96.7 93 01/04 0217 Nasal 3 cannula 01/03 2324 75 99 40 01/03 2239 36.5 75 18 151/57 88.0 99 01/03 2010 36.7 73 18 151/76 101.1 99 24 hour I O ending at 0700: 01/04 0700 01/03 1900 Intake Total 400 Output Total 200 450 Balance -200 -50 Intake, Oral 400 Output, Urine 200 450 Patient 119.4 kg Weight Weight Standing scale Measurement Method PATIENT WEIGHT: Weight (lb): 263Weight (oz): 3.71Weight (kg): 119.400 Physical ExamGeneral appearance: alert, awake, orientedHead/eyes: atraumatic, normocephalicENT: moist mucous membranes, normal noseNeck: no JVD, no lymphadenopathyCardiovascular: normal heart sounds, regular rate and rhythmRespiratory: aerating well, clear to auscultationAbdomen: soft, no pulsatile massGenitourinary: urinary catheterExtremities: no gangrene, no swelling Treatment Prophylaxis Treatment ProphylaxisDrain(s)/tube(s): Drain(s)/tube(s): chest (x3) Diagnosis, Assessment PlanFree Text A P:This is a 76-year-old female known to have hypertension, diabetes, atrial fibrillation, s/p permanent pacemaker and history of ablation presenting with shortness of breath and 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 Nephrology is following for: 1. Acute kidney injury: Most likely it is prerenal (cardiorenal), she has been hypotensive postoperatively with requirement for pressor support and inotropic support. Plan is to increase inotropic support or pressor support to bring meanarterial pressure above 65 and give albumin with Lasix to see if it helps him diurese. If he does not respond to higher dose Lasix with albumin then I will consider starting him on CRRT to prevent hyper volemia. 2. Hypervolemia: Plan is to give Lasix and if he does not respond to start him on CRRT for extra fluid removal. 3. His electrolytes were all reviewed to be in normal range plan was to monitorand replace as needed. 4. He was receiving vancomycin so plan was to monitor vancomycin trough levels to prevent ATN. 5/ Metabolic alkalosis secondary to diuretics : Plan to give acetazoleamide if worsening. . Acute kidney injury: Resolved, she is responding to lasix. 2. Hypervolemia: Plan to continue lasix as tolerated.Today she was on low dose twice daily lasix. 3. Hypokalemia/hypomagnesemia:secondary to diuretics, plan was to monitor and replace as needed. 4. She was receiving vancomycin so plan was to monitor vancomycin trough levelsto prevent ATN. 5/ Metabolic alkalosis secondary to diuretics : Plan to give acetazoleamide and monitor closely. 12/28 1. Acute kidney injury: Resolved, she is responding to lasix. 2. Hypervolemia: Plan to continue lasix as tolerated.Today she was on low dose twice daily lasix. 3. Hypokalemia/hypomagnesemia:secondary to diuretics, plan was to monitor and replace as needed. 4. She was receiving vancomycin so plan was to monitor vancomycin trough levelsto prevent ATN. 5/ Metabolic alkalosis secondary to diuretics : Plan to give acetazoleamide and monitor closely. 12/29 1. Acute kidney injury: Resolved, she is responding to lasix. 2. Hypervolemia: Plan to continue lasix as tolerated.Today she was on low dose twice daily lasix. 3. Hypokalemia/hypomagnesemia:secondary to diuretics, plan was to monitor and replace as needed. 4. She was receiving vancomycin so plan was to monitor vancomycin trough levelsto prevent ATN. 5/ Metabolic alkalosis secondary to diuretics : Plan to give acetazoleamide andmonitor closely. 12/30 1. Acute kidney injury: Resolved, she is responding to lasix. 2. Hypervolemia: Plan to continue lasix as tolerated.Today she was on low dose twice daily lasix. 3. Hypokalemia/hypomagnesemia:secondary to diuretics, plan was to monitor and replace as needed. 4. Metabolic alkalosis secondary to diuretics : Plan to continue acetazoleamide and monitor closely. 12/31 1. Acute kidney injury: Resolved, she is responding to lasix. 2. Hypervolemia: Plan to continue lasix as tolerated.Today she was on low dose twice daily lasix. 3. Hypokalemia/hypomagnesemia:secondary to diuretics, plan was to monitor and replace as needed. 4. Metabolic alkalosis secondary to diuretics :Improved so acetazoleamide reduced. . Acute kidney injury: Resolved, she is responding to lasix. 2. Hypervolemia: Plan to continue lasix as tolerated.Today she was on low dose daily lasix. 3. Hypokalemia/hypomagnesemia:secondary to diuretics, plan was to monitor and replace as needed. 4. Metabolic alkalosis secondary to diuretics : acetazoleamide rgmtxqgkr2201/03. Acute kidney injury: Resolved, she is responding to lasix. 2. Hypervolemia: Plan to continue lasix as tolerated.Today she was on low dose daily lasix. 3. Hypokalemia/hypomagnesemia:secondary to diuretics, plan was to monitor and replace as needed. 4. Metabolic alkalosis secondary to diuretics : acetazoleamide continued.Plan was to continue same as patient stable from volume and electrolyte standpoint. . Acute kidney injury: Resolved, she is responding to lasix. 2. Hypervolemia: Plan to continue lasix as tolerated.Today she was on low dose daily lasix. 3. Hypokalemia/hypomagnesemia:secondary to diuretics, plan was to monitor and replace as needed. 4. Metabolic alkalosis secondary to diuretics : acetazoleamide continued.Plan was to continue same as patient stable from volume and electrolyte standpoint. Consultants: cardiology, cardiovascular surgery, critical/assembler unit at 2009 RPT #:[id number] OF REPORTPRProgress [id number]:25:00G.[id number] e for patient cbboJXWSIKBRGOBVOF4107-98-40V30:10:39 [facility] 2022-01-04 12:14:00 [id number] EsypWrEBMoC7 xvDSm3uI7XtRhW9hur/OoPUq8334-23-24O51:14:00 [facility] CenterHospitalist Progress NoteREPORT#:[id number] REPORT STATUS: SignedDATE:01/04/22 TIME: 1214 PATIENT: KIAH GILES UNIT #: [id number]#: [id number] ROOM[facility]BED[facility]DOB: [birth year] AGE: 76 SEX: F [facility] AUTHOR: Meryl Rosa MD * ALL edits or amendments must be made on the electronic/computer document * SubjectiveChief complaint:she is weak . less sob acute respiratory failure --post CABGrehab placement -- pending bed -- may be tursdayHPI: 76 years old female with PMH of macular degeneration, obesity, obstructive sleepapnea (CPAP at home), former smoker, hypertension, hyperlipidemia, diabetes, Crohn's disease, chronic atrial fibrillation status post 3 ablations in the past(on Xarelto), pacemaker placement is admitted to the hospital post cardiac cath . she need CABG . she had sob for years . sob got worse . she was [place] to the [place] . she had cath 3 weeks ago . she was reffered to here for stents placement . she had cath yesterday . it show multiple vessels CAD . she is recommend CABG . she still feel sob . no cp no nausea no vomiting no fever no abdominal pain no dizziness . Review of SystemsConstitutional:Reports: generalized weakness. Denies: fever, lethargy. Respiratory:Reports: SOB. Denies: wheezing. Cardiovascular:Reports: DOUGLASS (dyspnea on exertion), edema. Denies: chest pain, orthopnea, palpitations. GI:Denies: abdominal pain, nausea, vomiting. Neuro:Denies: dizziness. Objective GeneralVS/I O:Vital Signs: Date Time Temp Pulse Resp B/P B/P Pulse O2 O2 Flow FiO2 Mean Ox Delivery Rate 01/04 0856 36.6 70 14 142/64 0.0 92 Nasal cannula 01/04 0845 Nasal 2 cannula 01/04 627 36.3 70 18 141/75 96.7 93 01/047 Nasal 3 cannula 01/034 75 99 40 01/03 2239 36.5 75 18 151/57 88.0 99 01/03 2010 36.7 73 18 151/76 101.1 99 01/04 1956 72 100 40 01/04 1956 100 BiPAP 40 01/03 1721 72 27 92 01/03 1700 72 22 99 10/22 1639 36.3 70 16 138/73 94.7 97 [...] scale Measurement Method PATIENT WEIGHT: Weight (lb): 263Weight (oz): 3.71Weight (kg): 119.400 Medications:Active Meds + DC'd Last 24 HrsPotassium Chloride (POTASSIUM CHLORIDE 20MEQ TAB.ER) 40 MEQ ONCE ONE PO Metoprolol Tartrate (LOPRESSOR) 25 MG Q12HR PO Acetazolamide (DIAMOX) 500 MG Q24H IV Furosemide (LASIX 40 mg/4 mL INJECTION) 40 MG DAILY IV Sterile Water (WATER FOR INJECTION) 5 ML ASDIR PRN IV Potassium Chloride (POTASSIUM CHLORIDE 20MEQ TAB.ER) 40 MEQ DAILY PRN PRN PO Insulin Glargine (Lantus/Semglee) 30 UNIT DAILY SUBQ Insulin Glargine (Lantus/Semglee) 20 UNIT BEDTIME SUBQ Insulin Human Lispro (HUMALOG) 0 AC HS SUBQ Dextrose/Water (DEXTROSE 10% IN WATER) 125 ML ASDIR PRN IV (CKD) Dextrose/Water (DEXTROSE 10% IN WATER) 250 ML ASDIR PRN IV (CKD) Glucagon (GLUCAGON) 1 MG ASDIR PRN IM Amiodarone HCl (CORDARONE) 200 MG BID PO Sterile Water (WATER FOR INJECTION) 5 ML ASDIR PRN IV Sterile Water (WATER FOR INJECTION) 5 ML ASDIR PRN IV Sodium Chloride (SODIUM CHLORIDE) 4 ML RTBID NEB Melatonin (Melatonin) 3 MG BEDTIME PO Sodium Chloride (SODIUM CHLORIDE) 10 ML BID IV Sodium Chloride (SODIUM CHLORIDE) 10 ML ASDIR PRN IV Pantoprazole (PROTONIX) 40 MG DAILY PO Dexmedetomidine/Sodium Chloride (PRECEDEX 1000MCG/NS 250ML) 250 ML ASDIR IV Bisacodyl (DULCOLAX) 10 MG DAILY PRN PRN RECTAL Lactulose (LACTULOSE) 20 GM DAILY PRN PRN PO Magnesium Hydroxide (MILK OF MAGNESIA) 30 ML DAILY PRN PRN PO Aspirin (ASPIRIN) 81 MG DAILY PO Clopidogrel Bisulfate (Plavix) 75 MG DAILY PO Cyanocobalamin (Vitamin B-12 500 mcg tab) 500 MCG DAILY PO Ferrous Sulfate (FERROUS SULFATE) 325 MG DAILY PO Metolazone (metOLazone) 5 MG DAILY PO Polyethylene Glycol (MIRALAX) 17 GM DAILY PO Atorvastatin Calcium (LIPITOR) 40 MG 2100 PO Docusate Sodium (DOCUSATE SODIUM) 100 MG BID PO Senna (SENOKOT) 17.6 MG BEDTIME PO Acetaminophen (TYLENOL) 650 MG Q4H PRN PRN PO Acetylcysteine (MUCOMYST FOR RT) 200 MG RTQ6H NEB Albuterol/Ipratropium (DUONEB) 3 ML RTQ6H NEB Bisacodyl (DULCOLAX) 10 MG ONCE PRN RECTAL Dopamine HCl/Dextrose (DOPamine 400MG/D5W 250ML) 250 ML ASDIR IV Milrinone Lactate/Dextrose (MILRINONE 20MG/D5W 100ML) 100 ML ASDIR IV (CKD) Vasopressin (VASOSTRICT 20 Unit/NS 100ML) 100 ML ASDIR IV (CKD) Acetaminophen (TYLENOL) 650 MG Q4H PRN PRN RECTAL Calcium Chloride (CALCIUM CHLORIDE) 1 GM ASDIR PRN IV Magnesium Sulfate (MAGNESIUM SULFATE 4GM/SWFI 100ML) 100 ML ASDIR PRN IV Magnesium Sulfate (MAGNESIUM SULFATE 2GM/SWFI 50ML) 50 ML ASDIR PRN IV Magnesium Sulfate/Dextrose (MAGNESIUM SULFATE 1GM/D5W 100ML) 100 ML ASDIR PRN IV Nitroglycerin/Dextrose (NITROGLYCERIN 50,000MCG/D5W 250ML) 250 ML ASDIR IV Norepinephrine Bitartrate (NOREPINEPHRINE 8 MG/NS 250 ML) 250 ML TITRATE IV Potassium Chloride (KCL 20MEQ/SWFI 100ML) 100 ML ASDIR PRN IV Sodium Bicarbonate (SODIUM BICARBONATE) 50 MEQ ASDIR PRN IV Ondansetron HCl (ZOFRAN) 4 MG Q6H PRN PRN IV Physical ExamGeneral appearance: alert, awake, orientedHead/Eyes: atraumatic, normal conjunctiva/sclera, normal eyelids/periorb., normocephalicNeck: full range of motion, non-tender, no JVDCardiovascular: normal heart sounds, regular rate rhythmRespiratory: decreased breath sounds, clear to auscultationAbdomen: non-tender, normal bowel sounds, soft, no distentionExtremities: edema, moves all, no calf tendernessNeuro/CAPTAIN FIRE PREVENTION BUREAU: alert, 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Skin: dry, intact ResultsFindings/Data:Laboratory Tests 01/04 01/04 01/04 01/03 01/03 1015 0748 0330 20108 Chemistry Sodium (134 - 147 mEq/L) 144 [...] (Auto) (14.0 - 32.0 %) 6.3 L Colquitt % (Auto) (4.8 - 9.0 %) 9.7 H Eos % (Auto) (0.3 - 3.7 %) 1.8 Baso % (Auto) (0.0 - 2.0 %) 0.5 Neut # (Auto) (2.0 - 7.6 x10 3/uL) 5.86 Lymph # (Auto) (1.0 - 3.8 x10 3/uL) 0.46 L [place] # (Auto) (0.1 - 0.8 x10 3/uL) 0.71 Eos # (Auto) (0.0 - 0.2 x10 3/uL) 0.13 Baso # (Auto) (0.0 - 0.2 x10 3/uL) 0.04 Abs Immat Gran (auto) (0.00 - 0.03 x10 3/uL) 0.11 H Add Manual Diff NO Immature Gran % (0.0 - 2.0 %) 1.5 Nucleated RBC % (0 - 0 %) 0.4 H Nucleated RBCs # (Man) (0.0 - 0.1 x10 3/uL) 0.03 Radiology data:Recent Impressions:RADIOLOGY - XR CHEST 1 V 01/04 0712 Report Impression - Status: SIGNED Entered: 01/04/2022 0813 IMPRESSION: Mild worsening right basilar opacities. Otherwise, stable exam. Impression By: [email or web address] - Mark Anthony Willis M.D. Treatment Prophylaxis Treatment ProphylaxisDrain(s)/tube(s): Drain(s)/tube(s): chest (x3) Diagnosis, Assessment PlanConsultants: cardiology, cardiovascular surgery, critical/assembler unit Free Text DxA P NotesFree text DxA P notes: 76 years old female with PMH of macular degeneration, obesity, obstructive sleepapnea (CPAP at home), former smoker, hypertension, hyperlipidemia, diabetes, Crohn's disease, chronic atrial fibrillation status post 3 ablations in the past(on Xarelto), pacemaker placement CAD -- multiple vesssels HTNDM HLDCrohn's diseasechronic atrial fibrillation status post 3 ablationsmacular degenerationobesityobstructive sleep apneaacute respiratory failure --post surgery severe mitral valve [...] MVR (31 Magna valve), CABG x 1 (ROBERTS-LAD), ILAA and pericardectomy -- she remain intubated on the vent -- chest tube are in place -on levophed and epinephrine drip -- monitor in CCU 12/20- she was extubated --on bipap now -- NPO --off Levophed/epinephrine, continue vasopressin, inotropes with milrinone, -- chest tube remain in place -- she is stable post surgery 12/21-- she is on high flow O2 -- edema --lasix --chest tube in place --- she is hemodynamic stable -- continue monitor in CCU 12/22- she remain on high O2 CXR show worsening pulmonary venous vascular congestion. --lasix iv tid -- chest tube are [...] drip as nurse -- continue supportive care 12/27On lasix and insulin drips. Back on lantus dose BID, trend glucose.Continue PT/OT.12/28Increase lantus BID. 12/29-- she remain on bipap [...] -- continue PT/OT -- rehab --pending bed at 1355 RPT #:[id number] OF REPORTPRProgress [id number]:14:00G.[id number] e for patient idpgXYSQLHZULNSPSH1028-17-29I25:56:12 [facility] ACL 2022-01-04 10:48:00 [id number]+qy0aZGekRIRiy/IiOfO4gNa3 nHXoyFBw+hgS kbolAtEEhQBxmVJac+wNLhiF5466-00-37N74:48:00 [facility])Cardiology Progress NoteREPORT#:[id number] REPORT STATUS: SignedDATE:01/04/22 TIME: 1048 PATIENT: KIAH GILES UNIT #: [id number]#: [id number] ROOM[facility]BED: [facility] [place]-1DOB: [birth year] AGE: 76 SEX: F ATTEND: Jeffry More AUTHOR: Aruna Ramos MD * ALL edits or amendments must be made on the electronic/computer document * Subjective Free Text Subj NotesFree Text Subj Notes:Doing okay Objective GeneralVS/I O:24 hour I O ending at 0700: 01/04 [...] 01/04 0845 Nasal 2 cannula 01/04 0627 97.3 70 18 141/75 96.7 93 01/04 0217 Nasal 3 cannula 01/03 2324 75 99 40 01/03 2239 97.7 75 18 151/57 88.0 99 01/03 2010 98.1 73 18 151/76 101.1 99 01/03 195 72 100 40 01/03 195 100 BiPAP 40 01/03 1721 72 27 [...] 71 20 96 PATIENT WEIGHT: Weight (lb): 263Weight (oz): 3.71Weight (kg): 119.400 Medications:Active Meds + DC'd Last 24 HrsPotassium Chloride (POTASSIUM CHLORIDE 20MEQ TAB.ER) 40 MEQ ONCE ONE PO Metoprolol Tartrate (LOPRESSOR) 25 MG Q12HR PO Acetazolamide (DIAMOX) 500 MG Q24H IV Furosemide (LASIX 40 mg/4 mL INJECTION) 40 MG DAILY IV Sterile Water (WATER FOR INJECTION) 5 ML ASDIR PRN IV Potassium Chloride (POTASSIUM CHLORIDE 20MEQ TAB.ER) 40 MEQ DAILY PRN PRN PO Insulin Glargine (Lantus/Semglee) 30 UNIT DAILY SUBQ Insulin Glargine (Lantus/Semglee) 20 UNIT BEDTIME SUBQ Insulin Human Lispro (HUMALOG) 0 AC HS SUBQ Dextrose/Water (DEXTROSE 10% IN WATER) 125 ML ASDIR PRN IV (CKD) Dextrose/Water (DEXTROSE 10% IN WATER) 250 ML ASDIR PRN IV (CKD) Glucagon (GLUCAGON) 1 MG ASDIR PRN IM Amiodarone HCl (CORDARONE) 200 MG BID PO Sterile Water (WATER FOR INJECTION) 5 ML ASDIR PRN IV Sterile Water (WATER FOR INJECTION) 5 ML ASDIR PRN IV Sodium Chloride (SODIUM CHLORIDE) 4 ML RTBID NEB Melatonin (Melatonin) 3 MG BEDTIME PO Sodium Chloride (SODIUM CHLORIDE) 10 ML BID IV Sodium Chloride (SODIUM CHLORIDE) 10 ML ASDIR PRN IV Pantoprazole (PROTONIX) 40 MG DAILY PO Dexmedetomidine/Sodium Chloride (PRECEDEX 1000MCG/NS 250ML) 250 ML ASDIR IV Bisacodyl (DULCOLAX) 10 MG DAILY PRN PRN RECTAL Lactulose (LACTULOSE) 20 GM DAILY PRN PRN PO Magnesium Hydroxide (MILK OF MAGNESIA) 30 ML DAILY PRN PRN PO Aspirin (ASPIRIN) 81 MG DAILY PO Clopidogrel Bisulfate (Plavix) 75 MG DAILY PO Cyanocobalamin (Vitamin B-12 500 mcg tab) 500 MCG DAILY PO Ferrous Sulfate (FERROUS SULFATE) 325 MG DAILY PO Metolazone (metOLazone) 5 MG DAILY PO Polyethylene Glycol (MIRALAX) 17 GM DAILY PO Atorvastatin Calcium (LIPITOR) 40 MG 2100 PO Docusate Sodium (DOCUSATE SODIUM) 100 MG BID PO Senna (SENOKOT) 17.6 MG BEDTIME PO Acetaminophen (TYLENOL) 650 MG Q4H PRN PRN PO Acetylcysteine (MUCOMYST FOR RT) 200 MG RTQ6H NEB Albuterol/Ipratropium (DUONEB) 3 ML RTQ6H NEB Bisacodyl (DULCOLAX) 10 MG ONCE PRN RECTAL Dopamine HCl/Dextrose (DOPamine 400MG/D5W 250ML) 250 ML ASDIR IV Milrinone Lactate/Dextrose (MILRINONE 20MG/D5W 100ML) 100 ML ASDIR IV (CKD) Vasopressin (VASOSTRICT 20 Unit/NS 100ML) 100 ML ASDIR IV (CKD) Acetaminophen (TYLENOL) 650 MG Q4H PRN PRN RECTAL Calcium Chloride (CALCIUM CHLORIDE) 1 GM ASDIR PRN IV Magnesium Sulfate (MAGNESIUM SULFATE 4GM/SWFI 100ML) 100 ML ASDIR PRN IV Magnesium Sulfate (MAGNESIUM SULFATE 2GM/SWFI 50ML) 50 ML ASDIR PRN IV Magnesium Sulfate/Dextrose (MAGNESIUM SULFATE 1GM/D5W 100ML) 100 ML ASDIR PRN IV Nitroglycerin/Dextrose (NITROGLYCERIN 50,000MCG/D5W 250ML) 250 ML ASDIR IV Norepinephrine Bitartrate (NOREPINEPHRINE 8 MG/NS 250 ML) 250 ML TITRATE IV Potassium Chloride (KCL 20MEQ/SWFI 100ML) 100 ML ASDIR PRN IV Sodium Bicarbonate (SODIUM BICARBONATE) 50 MEQ ASDIR PRN IV Ondansetron HCl (ZOFRAN) 4 MG Q6H PRN PRN IV Physical ExamGeneral appearance: alert, awake, orientedENT: normal noseNeck: no JVDCardiovascular: CV assessment: pedal edema, regular rate and rhythmRespiratory: decreased breath sounds, on oxygen, shortness of breath, no distressAbdomen: obeseGenitourinary: no flank pain, no urinary catheterUpper extremity: UE assessment: normal temperature, no edemaLower extremity: LE assessment: edemaNeuro/CAPTAIN FI[employer] PRE[employer]ION BUREAU: alert, 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Skin: dryPsychiatry: normal affect, normal mood ResultsFindings/Data:Laboratory Tests 01/04 01/04 01/04 01/03 01/03 1015 0748 329 2010 1637 Chemistry Sodium (134 - 147 [...] (Auto) (14.0 - 32.0 %) 6.3 L [place] % (Auto) (4.8 - 9.0 %) 9.7 H Eos % (Auto) (0.3 - 3.7 %) 1.8 Baso % (Auto) (0.0 - 2.0 %) 0.5 Neut # (Auto) (2.0 - 7.6 x10 3/uL) 5.86 Lymph # (Auto) (1.0 - 3.8 x10 3/uL) 0.46 L [place] # (Auto) (0.1 - 0.8 x10 3/uL) 0.71 Eos # (Auto) (0.0 - 0.2 x10 3/uL) 0.13 Baso # (Auto) (0.0 - 0.2 x10 3/uL) 0.04 Abs Immat Gran (auto) (0.00 - 0.03 x10 3/uL) 0.11 H Add Manual Diff NO Immature Gran % (0.0 - 2.0 %) 1.5 Nucleated RBC % (0 - 0 %) 0.4 H Nucleated RBCs # (Man) (0.0 - 0.1 x10 3/uL) 0.03 Laboratory Tests 01/04 0330 Chemistry Magnesium (1.80 - 2.40 mg/dL) 2.02 Radiology data:Recent Impressions:RADIOLOGY - XR CHEST 1 V 01/04 0712 Report Impression - Status: SIGNED Entered: 01/04/2022812 IMPRESSION: Mild worsening right basilar opacities. Otherwise, stable exam. Impression By: [email or web address] - Mark Anthony Willis M.D. Diagnosis, Assessment Plan Free Text DxA P NotesFree Text DxA P Notes:Ms Giles is a 76 y/o Femal w/ PMHx: CAD, HLD, T2DM, RONA (CPAP at home), smoker,Crohn's disease, AF s/p ablation (on Xarelto), s/p PPM and lymphedema. Dr. Ramos is consulted for CAD s/p CABG, MVR. 1. CAD s/p CABG, MVR, and ILAA. post-op per CTS and critical careOn Plavix, aspirin, beta-delma, statinvolume management per Nephrology negative fluid balance 2. Chronic AF s/p PPM/ablation. had ILAA during bypass no need for AC 3. Hypertension continue metoprolol tartrate to 25 mg BID 4. HyperlipidemiaContinue statins. 5. Crohn's disease. Per IM. 6. MARCELLO - resolvingper Nephrology 7. Resp insufficiencyBiPAP as neededon Nasal cannulaSlowly improving 8. Acute on chronic diastolic CHF/volume overloaddiuretic management per nephrology/CTS Slowly improvingcontinue supportive carePT/OT as tolerated 01/03/2022till volume overloaded, she is on Lasix and Diamox per nephrology may need to uptitrate the dose. Continue PT OT 01/04/2022:Continue diuresis per nephrology, PT OT and awaiting inpatient rehab at 1319 RPT #:[id number] OF REPORTPRProgress stif0780-43-82D63:48:00G.[id number] e for patient musoNIABUGZVVQJOTG5470-65-71F62:19:18 HC ACL 2022-01-03 13:20:00 [id number]+7vXTSC1VQHXsG vaMgA4Ftd1Xb gVZtkAHIolWTlnoBWeMC9ukH4470-00-81X50:20:00 [facility] ProgREPORT#:[id number] REPORT STATUS: SignedDATE:01/03/22 TIME: 1320 PATIENT: KIAH GILES UNIT #: [id number]#: [id number] [address] [birth year] AGE: 76 SEX: F ATTEND: Jeffry More MDADM AUTHOR: René Romero MD * ALL edits or amendments must be made on the electronic/computer document * GeneralPost-op: post surgery roundsStatus post:1. Mitral valve replacement (31 Magna valve). 2. Coronary artery bypass graft surgery x1 (ROBERTS to LAD). 3. Isolation of left atrial appendage. 4. Pericardiectomy. SubjectiveChief complaint:Shortness of breath Review of SystemsConstitutional:Denies: fever, malaise. Allergy/Immun:Denies: allergic reaction. ENT:Denies: sore throat. Respiratory:Denies: SOB. GI:Denies: abdominal pain. Heme:Denies: bleeding. Neuro:Denies: focal weakness, headache. All systems rev neg: except as marked Objective GeneralVS/I OLast Documented: Result Date Time Pulse Ox 86 01/03 121 B/P 134/76 01/03 1217 B/P Mean 95.4 01/03 121 O2 Delivery Nasal cannula 01/03 1217 Temp 36.4 01/03 121 Pulse 74 01/03 121 Resp 16 01/03 121 O2 Flow Rate 3 01/03 0854 FiO2 40 01/03 0437 24 hour I O ending at 0700: 01/03 0700 01/02 1900 Intake Total 290 Output Total 400 1800 Balance -400 -1510 Intake, Oral 240 Intake, Oral 50 Supplement Number 1 Bowel Movements Output, Urine 400 1800 Patient 118.9 kg Weight Weight Standing scale Measurement Method PATIENT WEIGHT: Weight (lb): 262Weight (oz): 2.07Weight (kg): 118.900 Dietitian Nutrition assessmentThe data set between the solid lines has been imported from the dietitian's assessment. BMI Calculated: 45.0Nutrition related diagnosis: Morbid obesityNutrition diagnosis details: BMI 40 or moreNutrition problem: Increased nutrient needsNutrition etiology: Chronic diseaseNutrition signs and symptoms: S/P CABGNutrition prescription: 1. RECOMMEND 1800 ADA DIABETIC DIET WITH HX OF DM. 2. PROVIDE GLUCERNA TID WITH MEALS. 3. MONITOR PO, WT, LABS, BM.Dietitian name: Serenity Garner, DIETAssessment completed: 12/30/21 Physical ExamGeneral appearance: alert, awake, orientedWound/incision: Location:sternal Site condition: edges approximated, incision intact, no drainageHEENT: anictericNeck: supple/no meningismusCardiovascular: normal heart sounds, regular rate rhythmRespiratory: aerating well, symmetric expansion, no distressAbdomen: soft, non-tenderExtremities: moves allNeuro/CAPTAIN FIRE PREVENTION BUREAU: alert, 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, normal speechSkin: dry, intact, normal temperaturePsychiatry: normal affect, normal mood Current MedicationsMedications:Active Meds + DC'd Last 24 HrsPotassium Chloride (POTASSIUM CHLORIDE 20MEQ TAB.ER) 40 MEQ ONCE ONE PO (DC) Metoprolol Tartrate (LOPRESSOR) 25 MG Q12HR PO Acetazolamide (DIAMOX) 500 MG Q24H IV Furosemide (LASIX 40 mg/4 mL INJECTION) 40 MG DAILY IV Sterile Water (WATER FOR INJECTION) 5 ML ASDIR PRN IV Potassium Chloride (POTASSIUM CHLORIDE 20MEQ TAB.ER) 40 MEQ DAILY PRN PRN PO Insulin Glargine (Lantus/Semglee) 30 UNIT DAILY SUBQ Insulin Glargine (Lantus/Semglee) 20 UNIT BEDTIME SUBQ Insulin Human Lispro (HUMALOG) 0 AC HS SUBQ Dextrose/Water (DEXTROSE 10% IN WATER) 125 ML ASDIR PRN IV (CKD) Dextrose/Water (DEXTROSE 10% IN WATER) 250 ML ASDIR PRN IV (CKD) Glucagon (GLUCAGON) 1 MG ASDIR PRN IM Amiodarone HCl (CORDARONE) 200 MG BID PO Sterile Water (WATER FOR INJECTION) 5 ML ASDIR PRN IV Sterile Water (WATER FOR INJECTION) 5 ML ASDIR PRN IV Sodium Chloride (SODIUM CHLORIDE) 4 ML RTBID NEB Melatonin (Melatonin) 3 MG BEDTIME PO Sodium Chloride (SODIUM CHLORIDE) 10 ML BID IV Sodium Chloride (SODIUM CHLORIDE) 10 ML ASDIR PRN IV Pantoprazole (PROTONIX) 40 MG DAILY PO Dexmedetomidine/Sodium Chloride (PRECEDEX 1000MCG/NS 250ML) 250 ML ASDIR IV Bisacodyl (DULCOLAX) 10 MG DAILY PRN PRN RECTAL Lactulose (LACTULOSE) 20 GM DAILY PRN PRN PO Magnesium Hydroxide (MILK OF MAGNESIA) 30 ML DAILY PRN PRN PO Aspirin (ASPIRIN) 81 MG DAILY PO Clopidogrel Bisulfate (Plavix) 75 MG DAILY PO Cyanocobalamin (Vitamin B-12 500 mcg tab) 500 MCG DAILY PO Ferrous Sulfate (FERROUS SULFATE) 325 MG DAILY PO Metolazone (metOLazone) 5 MG DAILY PO Polyethylene Glycol (MIRALAX) 17 GM DAILY PO Atorvastatin Calcium (LIPITOR) 40 MG 2100 PO Docusate Sodium (DOCUSATE SODIUM) 100 MG BID PO Senna (SENOKOT) 17.6 MG BEDTIME PO Acetaminophen (TYLENOL) 650 MG Q4H PRN PRN PO Acetylcysteine (MUCOMYST FOR RT) 200 MG RTQ6H NEB Albuterol/Ipratropium (DUONEB) 3 ML RTQ6H NEB Bisacodyl (DULCOLAX) 10 MG ONCE PRN RECTAL Dopamine HCl/Dextrose (DOPamine 400MG/D5W 250ML) 250 ML ASDIR IV Milrinone Lactate/Dextrose (MILRINONE 20MG/D5W 100ML) 100 ML ASDIR IV (CKD) Vasopressin (VASOSTRICT 20 Unit/NS 100ML) 100 ML ASDIR IV (CKD) Acetaminophen (TYLENOL) 650 MG Q4H PRN PRN RECTAL Calcium Chloride (CALCIUM CHLORIDE) 1 GM ASDIR PRN IV Magnesium Sulfate (MAGNESIUM SULFATE 4GM/SWFI 100ML) 100 ML ASDIR PRN IV Magnesium Sulfate (MAGNESIUM SULFATE 2GM/SWFI 50ML) 50 ML ASDIR PRN IV Magnesium Sulfate/Dextrose (MAGNESIUM SULFATE 1GM/D5W 100ML) 100 ML ASDIR PRN IV Nitroglycerin/Dextrose (NITROGLYCERIN 50,000MCG/D5W 250ML) 250 ML ASDIR IV Norepinephrine Bitartrate (NOREPINEPHRINE 8 MG/NS 250 ML) 250 ML TITRATE IV Potassium Chloride (KCL 20MEQ/SWFI 100ML) 100 ML ASDIR PRN IV Sodium Bicarbonate (SODIUM BICARBONATE) 50 MEQ ASDIR PRN IV Ondansetron HCl (ZOFRAN) 4 MG Q6H PRN PRN IV ResultsFindings/Data:Laboratory Tests 01/03 01/03 01/03 01/02 01/02 1228 [...] (Auto) (14.0 - 32.0 %) 5.6 L [place] % (Auto) (4.8 - 9.0 %) 9.3 H Eos % (Auto) (0.3 - 3.7 %) 2.0 Baso % (Auto) (0.0 - 2.0 %) 0.3 Neut # (Auto) (2.0 - 7.6 x10 3/uL) 7.41 Lymph # (Auto) (1.0 - 3.8 x10 3/uL) 0.51 L [place] # (Auto) (0.1 - 0.8 x10 3/uL) 0.85 H Eos # (Auto) (0.0 - 0.2 x10 3/uL) 0.18 Baso # (Auto) (0.0 - 0.2 x10 3/uL) 0.03 Abs Immat Gran (auto) (0.00 - 0.03 x10 3/uL) 0.13 H Add Manual Diff NO Immature Gran % (0.0 - 2.0 %) 1.4 Nucleated RBC % (0 - 0 %) 0.8 H Nucleated RBCs # (Man) (0.0 - 0.1 x10 3/uL) 0.07 Radiology data:Recent Impressions:RADIOLOGY - XR CHEST 1 V 01/03 0645 Report Impression - Status: SIGNED Entered: 01/03/2022 0846 IMPRESSION: 1. Unchanged multifocal patchy bilateral airspace disease in the left lung base and right mid and lower lung. 2. Unchanged small bilateral pleural effusions. Impression By: [email or web address] - Nicholas Dominguez M.D. Results: labs reviewed, vital signs stable, x-ray personally reviewed, current med profile rev'd Treatment Prophylaxis Treatment ProphylaxisOxygen: CPAP/BIPAP Diagnosis, Assessment PlanHospital course to date:02/02/22 doing very wellde linede tubediuresisambulateadvance diettransfer to CV1d/c planning 01/03 Patient doing well post operatively, no distress notedSitting up in chair at the bedsideLabs and CXR reviewedReplaced electrolytesCurrently on 3l N/C- encourage incentive spirometer useAmbulate with PT/OTDiuresis per nephrology- monitor renal function and strict I and O'sDischarge planning for inpatient rehab 5 east- pending female bed available on Wednesday Consultants: cardiology, cardiovascular surgery, critical/assembler unit at 5121 RPT #:[id number] OF REPORTPRProgress nhsc0200-81-65W84:20:00G.[id number] e for patient qeknSMAQISGXQBTNYG6849-43-40T01:50:19 [facility] 2022-01-03 12:42:00 [id number]/XeRVY0935kQ orIYbr01Cydf L7yqoHKImslhWzLtL7h3bvRL5151-23-08G90:42:[address] [facility] ([facility])Hospitalist Progress NoteREPORT#:[id number] REPORT STATUS: SignedDATE:01/03/22 TIME: 1242 PATIENT: KIAH GILES UNIT #: [id number]#: [id number] ROOM/BED: 3363-1DOB: [birth year] AGE: 76 SEX: F ATTEND: Jeffry More AUTHOR: Meryl Rosa MD * ALL edits or amendments must be made on the electronic/computer document * SubjectiveChief complaint:she is tire . acute respiratory failure --post CABGrehab placement -- pending bed -- may be tursday HPI: 76 years old female with PMH of macular degeneration, obesity, obstructive sleepapnea (CPAP at home), former smoker, hypertension, hyperlipidemia, diabetes, Crohn's disease, chronic atrial fibrillation status post 3 ablations in the past(on Xarelto), pacemaker placement is admitted to the hospital post cardiac cath . she need CABG . she had sob for years . sob got worse . she was [place] the [place] . she had cath 3 weeks ago . she was reffered to here for stents placement . she had cath yesterday . it show multiple vessels CAD . she is recommend CABG . she still feel sob . no cp no nausea no vomiting no fever no abdominal pain no dizziness . Review of SystemsConstitutional:Reports: fatigue, generalized weakness. Denies: fever, lethargy. Respiratory:Reports: DOUGLASS (dyspnea on exertion), SOB. Denies: productive cough (sputum), wheezing. Cardiovascular:Reports: DOUGLASS (dyspnea on exertion). Denies: chest pain, edema, orthopnea, palpitations. GI:Denies: abdominal pain, nausea, vomiting. Neuro:Denies: dizziness. Objective GeneralVS/I O:Vital Signs: Date Time Temp Pulse Resp B/P B/P Pulse O2 O2 Flow FiO2 Mean Ox Delivery Rate 01/03 1217 [...] scale Measurement Method PATIENT WEIGHT: Weight (lb): 262Weight (oz): 2.07Weight (kg): 118.900 Medications:Active Meds + DC'd Last 24 HrsPotassium Chloride (POTASSIUM CHLORIDE 20MEQ TAB.ER) 40 MEQ ONCE ONE PO (DC) Metoprolol Tartrate (LOPRESSOR) 25 MG Q12HR PO Acetazolamide (DIAMOX) 500 MG Q24H IV Furosemide (LASIX 40 mg/4 mL INJECTION) 40 MG DAILY IV Sterile Water (WATER FOR INJECTION) 5 ML ASDIR PRN IV Potassium Chloride (POTASSIUM CHLORIDE 20MEQ TAB.ER) 40 MEQ DAILY PRN PRN PO Insulin Glargine (Lantus/Semglee) 30 UNIT DAILY SUBQ Insulin Glargine (Lantus/Semglee) 20 UNIT BEDTIME SUBQ Insulin Human Lispro (HUMALOG) 0 AC HS SUBQ Dextrose/Water (DEXTROSE 10% IN WATER) 125 ML ASDIR PRN IV (CKD) Dextrose/Water (DEXTROSE 10% IN WATER) 250 ML ASDIR PRN IV (CKD) Glucagon (GLUCAGON) 1 MG ASDIR PRN IM Amiodarone HCl (CORDARONE) 200 MG BID PO Sterile Water (WATER FOR INJECTION) 5 ML ASDIR PRN IV Sterile Water (WATER FOR INJECTION) 5 ML ASDIR PRN IV Sodium Chloride (SODIUM CHLORIDE) 4 ML RTBID NEB Melatonin (Melatonin) 3 MG BEDTIME PO Sodium Chloride (SODIUM CHLORIDE) 10 ML BID IV Sodium Chloride (SODIUM CHLORIDE) 10 ML ASDIR PRN IV Pantoprazole (PROTONIX) 40 MG DAILY PO Dexmedetomidine/Sodium Chloride (PRECEDEX 1000MCG/NS 250ML) 250 ML ASDIR IV Bisacodyl (DULCOLAX) 10 MG DAILY PRN PRN RECTAL Lactulose (LACTULOSE) 20 GM DAILY PRN PRN PO Magnesium Hydroxide (MILK OF MAGNESIA) 30 ML DAILY PRN PRN PO Aspirin (ASPIRIN) 81 MG DAILY PO Clopidogrel Bisulfate (Plavix) 75 MG DAILY PO Cyanocobalamin (Vitamin B-12 500 mcg tab) 500 MCG DAILY PO Ferrous Sulfate (FERROUS SULFATE) 325 MG DAILY PO Metolazone (metOLazone) 5 MG DAILY PO Polyethylene Glycol (MIRALAX) 17 GM DAILY PO Atorvastatin Calcium (LIPITOR) 40 MG 2100 PO Docusate Sodium (DOCUSATE SODIUM) 100 MG BID PO Senna (SENOKOT) 17.6 MG BEDTIME PO Acetaminophen (TYLENOL) 650 MG Q4H PRN PRN PO Acetylcysteine (MUCOMYST FOR RT) 200 MG RTQ6H NEB Albuterol/Ipratropium (DUONEB) 3 ML RTQ6H NEB Bisacodyl (DULCOLAX) 10 MG ONCE PRN RECTAL Dopamine HCl/Dextrose (DOPamine 400MG/D5W 250ML) 250 ML ASDIR IV Milrinone Lactate/Dextrose (MILRINONE 20MG/D5W 100ML) 100 ML ASDIR IV (CKD) Vasopressin (VASOSTRICT 20 Unit/NS 100ML) 100 ML ASDIR IV (CKD) Acetaminophen (TYLENOL) 650 MG Q4H PRN PRN RECTAL Calcium Chloride (CALCIUM CHLORIDE) 1 GM ASDIR PRN IV Magnesium Sulfate (MAGNESIUM SULFATE 4GM/SWFI 100ML) 100 ML ASDIR PRN IV Magnesium Sulfate (MAGNESIUM SULFATE 2GM/SWFI 50ML) 50 ML ASDIR PRN IV Magnesium Sulfate/Dextrose (MAGNESIUM SULFATE 1GM/D5W 100ML) 100 ML ASDIR PRN IV Nitroglycerin/Dextrose (NITROGLYCERIN 50,000MCG/D5W 250ML) 250 ML ASDIR IV Norepinephrine Bitartrate (NOREPINEPHRINE 8 MG/NS 250 ML) 250 ML TITRATE IV Potassium Chloride (KCL 20MEQ/SWFI 100ML) 100 ML ASDIR PRN IV Sodium Bicarbonate (SODIUM BICARBONATE) 50 MEQ ASDIR PRN IV Ondansetron HCl (ZOFRAN) 4 MG Q6H PRN PRN IV Physical ExamGeneral appearance: alert, awake, orientedHead/Eyes: atraumatic, normal conjunctiva/sclera, normal eyelids/periorb., normocephalicNeck: full range of motion, non-tender, no JVDCardiovascular: normal heart sounds, regular rate rhythmRespiratory: decreased breath sounds, clear to auscultationAbdomen: non-tender, normal bowel sounds, soft, no distentionExtremities: edema, moves all, no calf tendernessNeuro/CAPTAIN FIRE PREVENTION BUREAU: alert, 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Skin: dry, intact ResultsFindings/Data:Laboratory Tests 01/03 01/03 01/03 01/02 01/02 1228 [...] (Auto) (14.0 - 32.0 %) 5.6 L [place] % (Auto) (4.8 - 9.0 %) 9.3 H Eos % (Auto) (0.3 - 3.7 %) 2.0 Baso % (Auto) (0.0 - 2.0 %) 0.3 Neut # (Auto) (2.0 - 7.6 x10 3/uL) 7.41 Lymph # (Auto) (1.0 - 3.8 x10 3/uL) 0.51 L [place] # (Auto) (0.1 - 0.8 x10 3/uL) 0.85 H Eos # (Auto) (0.0 - 0.2 x10 3/uL) 0.18 Baso # (Auto) (0.0 - 0.2 x10 3/uL) 0.03 Abs Immat Gran (auto) (0.00 - 0.03 x10 3/uL) 0.13 H Add Manual Diff NO Immature Gran % (0.0 - 2.0 %) 1.4 Nucleated RBC % (0 - 0 %) 0.8 H Nucleated RBCs # (Man) (0.0 - 0.1 x10 3/uL) 0.07 Treatment Prophylaxis Treatment ProphylaxisDrain(s)/tube(s): Drain(s)/tube(s): chest (x3) Diagnosis, Assessment PlanConsultants: cardiology, cardiovascular surgery, critical/assembler unit Free Text DxA P NotesFree text DxA P notes: 76 years old female with PMH of macular degeneration, obesity, obstructive sleepapnea (CPAP at home), former smoker, hypertension, hyperlipidemia, diabetes, Crohn's disease, chronic atrial fibrillation status post 3 ablations in the past(on Xarelto), pacemaker placement CAD -- multiple vesssels HTNDM HLDCrohn's diseasechronic atrial fibrillation status post 3 ablationsmacular degenerationobesityobstructive sleep apneaacute respiratory failure --post surgery severe mitral valve [...] MVR (31 Magna valve), CABG x 1 (ROBERTS-LAD), ILAA and pericardectomy -- she remain intubated on the vent -- chest tube are in place -on levophed and epinephrine drip -- monitor in CCU 12/20- she was extubated --on bipap now -- NPO --off Levophed/epinephrine, continue vasopressin, inotropes with milrinone, -- chest tube remain in place -- she is stable post surgery 12/21-- she is on high flow O2 -- edema --lasix --chest tube in place --- she is hemodynamic stable -- continue monitor in CCU 12/22- she remain on high O2 CXR show worsening pulmonary venous vascular congestion. --lasix iv tid -- chest tube are [...] drip as nurse -- continue supportive care lasix and insulin drips. Back on lantus dose BID, trend glucose.Continue PT/OT.12/28Increase lantus BID. 12/29-- she remain on bipap [...] CM -- continue PT/OT -- replace K at 1410 RPT #:[id number] OF REPORTPRProgress wfyz7780-55-44T51:42:00G.[id number] e for patient rljvCXNTEBXMGDEWPS5841-85-63R93:11:14 [facility] 2022-01-03 12:28:00 [id number] c+zjQlBuVZ/1 JoQatWwdU4Ynppio1Sl/Jex+9803-36-82Q94:28:[address] [facility] ([facility])Nephrology Progress NoteREPORT#:[id number] REPORT STATUS: SignedDATE:01/03/22 TIME: 1228 PATIENT: KIAH GILES UNIT #: [id number]#: [id number] ROOM[facility]BED: [facility]-1DOB: [birth year] AGE: 76 SEX: F ATTEND: Jeffry More MDADM AUTHOR: Suki Fuchs MD * ALL edits or amendments must be made on the electronic/computer document * SubjectiveChief complaint:chest painHPI:This is a 76-year-old female who has past medical history of hypertension, diabetes, coronary artery disease, atrial fibrillation who presented with worsening shortness of breath and on further work-up was 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 She was withnormal kidney function prior to surgery and after her surgery she began to develop oliguria. Her procedure was done without any complications but after her surgery she did require pressor support for hypotension and she was intubated for respiratory acidosis and hypoxia and she was treated with vancomycin for infection treatment. When she was seen this morning she continued to have hypotension and her heart rate was paced by her permanent pacemaker and her urine output was 20 to 30/h. Her family at bedside denied anyhistory of kidney disease, kidney stone, chronic NSAID use or any urinary complaints. They also endorse that her blood pressure and diabetes were mostly controlled. 01/03Looking comfortable, tolerating orally. Objective GeneralVS/I O:Vital Signs: Date Time Temp Pulse Resp B/P B/P Pulse O2 O2 Flow FiO2 Mean Ox Delivery Rate 01/03 1721 [...] 01/03 0739 96 Nasal 3 cannula 01/03 0700 74 12 100 01/03 0437 69 96 40 01/03 0437 96 BiPAP 40 01/03 0254 36.4 70 20 118/70 85.6 92 01/03 0129 76 100 40 01/03 0039 High flow 13 nasal cannula 01/03 0001 36.4 77 19 137/80 99.2 100 10/21 2159 67 97 40 01/02 2159 97 BiPAP 40 24 hour I O ending at 0700: 01/03 0700 01/02 1900 Intake Total 290 Output Total 400 1800 Balance -400 -1510 Intake, Oral 240 Intake, Oral 50 Supplement Number 1 Bowel Movements Output, Urine 400 1800 Patient 118.9 kg Weight Weight Standing scale Measurement Method PATIENT WEIGHT: Weight (lb): 262Weight (oz): 2.07Weight (kg): 118.900 Physical ExamGeneral appearance: alert, awake, orientedHead/eyes: atraumatic, normocephalicENT: moist mucous membranes, normal noseNeck: no JVD, no lymphadenopathyCardiovascular: normal heart sounds, regular rate and rhythmRespiratory: aerating well, clear to auscultationAbdomen: soft, no pulsatile massGenitourinary: urinary catheterExtremities: no gangrene, no swelling Treatment Prophylaxis Treatment ProphylaxisDrain(s)/tube(s): Drain(s)/tube(s): chest (x3) Diagnosis, Assessment PlanFree Text A P:This is a 76-year-old female known to have hypertension, diabetes, atrial fibrillation, s/p permanent pacemaker and history of ablation presenting with shortness of breath and 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 Nephrology is following for: 1. Acute kidney injury: Most likely it is prerenal (cardiorenal), she has been hypotensive postoperatively with requirement for pressor support and inotropic support. Plan is to increase inotropic support or pressor support to bring meanarterial pressure above 65 and give albumin with Lasix to see if it helps him diurese. If he does not respond to higher dose Lasix with albumin then I will consider starting him on CRRT to prevent hyper volemia. 2. Hypervolemia: Plan is to give Lasix and if he does not respond to start him on CRRT for extra fluid removal. 3. His electrolytes were all reviewed to be in normal range plan was to monitorand replace as needed. 4. He was receiving vancomycin so plan was to monitor vancomycin trough levels to prevent ATN. 5/ Metabolic alkalosis secondary to diuretics : Plan to give acetazoleamide if worsening. . Acute kidney injury: Resolved, she is responding to lasix. 2. Hypervolemia: Plan to continue lasix as tolerated.Today she was on low dose twice daily lasix. 3. Hypokalemia/hypomagnesemia:secondary to diuretics, plan was to monitor and replace as needed. 4. She was receiving vancomycin so plan was to monitor vancomycin trough levelsto prevent ATN. 5/ Metabolic alkalosis secondary to diuretics : Plan to give acetazoleamide and monitor closely. 12/28 1. Acute kidney injury: Resolved, she is responding to lasix. 2. Hypervolemia: Plan to continue lasix as tolerated.Today she was on low dose twice daily lasix. 3. Hypokalemia/hypomagnesemia:secondary to diuretics, plan was to monitor and replace as needed. 4. She was receiving vancomycin so plan was to monitor vancomycin trough levelsto prevent ATN. 5/ Metabolic alkalosis secondary to diuretics : Plan to give acetazoleamide and monitor closely. 12/29 1. Acute kidney injury: Resolved, she is responding to lasix. 2. Hypervolemia: Plan to continue lasix as tolerated.Today she was on low dose twice daily lasix. 3. Hypokalemia/hypomagnesemia:secondary to diuretics, plan was to monitor and replace as needed. 4. She was receiving vancomycin so plan was to monitor vancomycin trough levelsto prevent ATN. 5/ Metabolic alkalosis secondary to diuretics : Plan to give acetazoleamide andmonitor closely. 12/30 1. Acute kidney injury: Resolved, she is responding to lasix. 2. Hypervolemia: Plan to continue lasix as tolerated.Today she was on low dose twice daily lasix. 3. Hypokalemia/hypomagnesemia:secondary to diuretics, plan was to monitor and replace as needed. 4. Metabolic alkalosis secondary to diuretics : Plan to continue acetazoleamide and monitor closely. 12/31 1. Acute kidney injury: Resolved, she is responding to lasix. 2. Hypervolemia: Plan to continue lasix as tolerated.Today she was on low dose twice daily lasix. 3. Hypokalemia/hypomagnesemia:secondary to diuretics, plan was to monitor and replace as needed. 4. Metabolic alkalosis secondary to diuretics :Improved so acetazoleamide reduced. . Acute kidney injury: Resolved, she is responding to lasix. 2. Hypervolemia: Plan to continue lasix as tolerated.Today she was on low dose daily lasix. 3. Hypokalemia/hypomagnesemia:secondary to diuretics, plan was to monitor and replace as needed. 4. Metabolic alkalosis secondary to diuretics : acetazoleamide [id number]. Acute kidney injury: Resolved, she is responding to lasix. 2. Hypervolemia: Plan to continue lasix as tolerated.Today she was on low dose daily lasix. 3. Hypokalemia/hypomagnesemia:secondary to diuretics, plan was to monitor and replace as needed. 4. Metabolic alkalosis secondary to diuretics : acetazoleamide continued.Plan was to continue same as patient stable from volume and electrolyte standpoint. Consultants: cardiology, cardiovascular surgery, critical/assembler unit at 1948 RPT #:[id number] OF REPORTPRProgress pwnk7032-87-44O28:28:00G.[id number] e for patient whujBSRDNRMRNRTFWL6208-26-84W14:49:02 ACL 2022-01-03 09:52:00 [id number]+lMZGhiXApJRztFVLC Okd0KzZ+3zR9 k+Qwp2lBoyGsx+lKm0HbgH870151-83-80Q09:52:00 [facility])Cardiology Progress NoteREPORT#:[id number] REPORT STATUS: SignedDATE:01/03/22 TIME: 951 PATIENT: KIAH GILES UNIT #: [id number]#: [id number] [address] [birth year] AGE: 76 SEX: F ATTEND: Jeffry More AUTHOR: Aruna Ramos MD * ALL edits or amendments must be made on the electronic/computer document * Subjective Free Text Subj NotesFree Text Subj Notes:Doing okay, still short of breath, was walking down the hallway with PT support. Daughter was with the patient Objective GeneralVS/I O:24 hour I O ending at 0700: 01/03 0700 01/02 1900 Intake Total 290 Output Total 400 1800 Balance -400 -1510 Intake, Oral 240 Intake, Oral 50 Supplement Number 1 Bowel Movements Output, Urine 400 1800 Patient 118.9 kg Weight Weight Standing scale Measurement Method Vital Signs: Date Time Temp Pulse Resp B/P B/P Pulse O2 O2 Flow FiO2 Mean Ox Delivery Rate 01/03 0753 [...] 148/83 108 94 PATIENT WEIGHT: Weight (lb): 262Weight (oz): 2.07Weight (kg): 118.900 Medications:Active Meds + DC'd Last 24 HrsMetoprolol Tartrate (LOPRESSOR) 25 MG Q12HR PO Acetazolamide (DIAMOX) 500 MG Q24H IV Furosemide (LASIX 40 mg/4 mL INJECTION) 40 MG DAILY IV Sterile Water (WATER FOR INJECTION) 5 ML ASDIR PRN IV Potassium Chloride (POTASSIUM CHLORIDE 20MEQ TAB.ER) 40 MEQ DAILY PRN PRN PO Insulin Glargine (Lantus/Semglee) 30 UNIT DAILY SUBQ Insulin Glargine (Lantus/Semglee) 20 UNIT BEDTIME SUBQ Insulin Human Lispro (HUMALOG) 0 AC HS SUBQ Dextrose/Water (DEXTROSE 10% IN WATER) 125 ML ASDIR PRN IV (CKD) Dextrose/Water (DEXTROSE 10% IN WATER) 250 ML ASDIR PRN IV (CKD) Glucagon (GLUCAGON) 1 MG ASDIR PRN IM Amiodarone HCl (CORDARONE) 200 MG BID PO Sterile Water (WATER FOR INJECTION) 5 ML ASDIR PRN IV Sterile Water (WATER FOR INJECTION) 5 ML ASDIR PRN IV Sodium Chloride (SODIUM CHLORIDE) 4 ML RTBID NEB Melatonin (Melatonin) 3 MG BEDTIME PO Sodium Chloride (SODIUM CHLORIDE) 10 ML BID IV Sodium Chloride (SODIUM CHLORIDE) 10 ML ASDIR PRN IV Pantoprazole (PROTONIX) 40 MG DAILY PO Dexmedetomidine/Sodium Chloride (PRECEDEX 1000MCG/NS 250ML) 250 ML ASDIR IV Bisacodyl (DULCOLAX) 10 MG DAILY PRN PRN RECTAL Lactulose (LACTULOSE) 20 GM DAILY PRN PRN PO Magnesium Hydroxide (MILK OF MAGNESIA) 30 ML DAILY PRN PRN PO Aspirin (ASPIRIN) 81 MG DAILY PO Clopidogrel Bisulfate (Plavix) 75 MG DAILY PO Cyanocobalamin (Vitamin B-12 500 mcg tab) 500 MCG DAILY PO Ferrous Sulfate (FERROUS SULFATE) 325 MG DAILY PO Metolazone (metOLazone) 5 MG DAILY PO Polyethylene Glycol (MIRALAX) 17 GM DAILY PO Atorvastatin Calcium (LIPITOR) 40 MG 2100 PO Docusate Sodium (DOCUSATE SODIUM) 100 MG BID PO Senna (SENOKOT) 17.6 MG BEDTIME PO Acetaminophen (TYLENOL) 650 MG Q4H PRN PRN PO Acetylcysteine (MUCOMYST FOR RT) 200 MG RTQ6H NEB Albuterol/Ipratropium (DUONEB) 3 ML RTQ6H NEB Bisacodyl (DULCOLAX) 10 MG ONCE PRN RECTAL Dopamine HCl/Dextrose (DOPamine 400MG/D5W 250ML) 250 ML ASDIR IV Milrinone Lactate/Dextrose (MILRINONE 20MG/D5W 100ML) 100 ML ASDIR IV (CKD) Vasopressin (VASOSTRICT 20 Unit/NS 100ML) 100 ML ASDIR IV (CKD) Acetaminophen (TYLENOL) 650 MG Q4H PRN PRN RECTAL Calcium Chloride (CALCIUM CHLORIDE) 1 GM ASDIR PRN IV Magnesium Sulfate (MAGNESIUM SULFATE 4GM/SWFI 100ML) 100 ML ASDIR PRN IV Magnesium Sulfate (MAGNESIUM SULFATE 2GM/SWFI 50ML) 50 ML ASDIR PRN IV Magnesium Sulfate/Dextrose (MAGNESIUM SULFATE 1GM/D5W 100ML) 100 ML ASDIR PRN IV Nitroglycerin/Dextrose (NITROGLYCERIN 50,000MCG/D5W 250ML) 250 ML ASDIR IV Norepinephrine Bitartrate (NOREPINEPHRINE 8 MG/NS 250 ML) 250 ML TITRATE IV Potassium Chloride (KCL 20MEQ/SWFI 100ML) 100 ML ASDIR PRN IV Sodium Bicarbonate (SODIUM BICARBONATE) 50 MEQ ASDIR PRN IV Ondansetron HCl (ZOFRAN) 4 MG Q6H PRN PRN IV Physical ExamGeneral appearance: alert, awake, orientedENT: normal noseNeck: no JVDCardiovascular: CV assessment: pedal edema, regular rate and rhythmRespiratory: decreased breath sounds, on oxygen, shortness of breath, no distressAbdomen: obeseGenitourinary: no flank pain, no urinary catheterUpper extremity: UE assessment: normal temperature, no edemaLower extremity: LE assessment: edemaNeuro/[employer]: alert, 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Skin: dryPsychiatry: normal affect, normal mood ResultsFindings/Data:Laboratory Tests 01/03 01/03 01/02 01/02 01/02 0728 [...] 110 MG/DL) 96 187 H 164 H 190 H Calcium (8.0 - 10.5 mg/dL) 9.8 [...] (Auto) (14.0 - 32.0 %) 5.6 L Colquitt % (Auto) (4.8 - 9.0 %) 9.3 H Eos % (Auto) (0.3 - 3.7 %) 2.0 Baso % (Auto) (0.0 - 2.0 %) 0.3 Neut # (Auto) (2.0 - 7.6 x10 3/uL) 7.41 Lymph # (Auto) (1.0 - 3.8 x10 3/uL) 0.51 L [place]itt # (Auto) (0.1 - 0.8 x10 3/uL) 0.85 H Eos # (Auto) (0.0 - 0.2 x10 3/uL) 0.18 Baso # (Auto) (0.0 - 0.2 x10 3/uL) 0.03 Abs Immat Gran (auto) (0.00 - 0.03 x10 3/uL) 0.13 H Add Manual Diff NO Immature Gran % (0.0 - 2.0 %) 1.4 Nucleated RBC % (0 - 0 %) 0.8 H Nucleated RBCs # (Man) (0.0 - 0.1 x10 3/uL) 0.07 Laboratory Tests 01/03 0455 Chemistry Magnesium (1.80 - 2.40 mg/dL) 2.20 Radiology data:Recent Impressions:RADIOLOGY - XR CHEST 1 V 01/03 0645 Report Impression - Status: SIGNED Entered: 01/03/2022 4881 IMPRESSION: 1. Unchanged multifocal patchy bilateral airspace disease in the left lung base and right mid and lower lung. 2. Unchanged small bilateral pleural effusions. Impression By: Brigida - Nicholas Dominguez M.D. Diagnosis, Assessment Plan Free Text DxA P NotesFree Text DxA P Notes:Ms Giles is a 76 y/o Femal w/ PMHx: CAD, HLD, T2DM, RONA (CPAP at home), smoker,Crohn's disease, AF s/p ablation (on Xarelto), s/p PPM and lymphedema. Dr. Ramos is consulted for CAD s/p CABG, MVR. 1. CAD s/p CABG, MVR, and ILAA. post-op per CTS and critical careOn Plavix, aspirin, beta-demla, statinvolume management per Nephrology negative fluid balance 2. Chronic AF s/p PPM/ablation. had ILAA during bypass no need for AC 3. Hypertension continue metoprolol tartrate to 25 mg BID 4. HyperlipidemiaContinue statins. 5. Crohn's disease. Per IM. 6. MARCELLO - resolvingper Nephrology 7. Resp insufficiencyBiPAP as neededon Nasal cannulaSlowly improving 8. Acute on chronic diastolic CHF/volume overloaddiuretic management per nephrology/CTS Slowly improvingcontinue supportive carePT/OT as tolerated 01/03/2022till volume overloaded, she is on Lasix and Diamox per nephrology may need to uptitrate the dose. Continue PT OT at 1017 RPT #:[id number] OF REPORTPRProgress ggny1984-07-78L16:52:00G.[id number] e for patient wwamKJSKFFUJQJIZHY3526-03-85C32:17:33 ACL 2022-01-02 22:27:00 [id number]o8 V57QCLVGBM8y u0rL3nPgg3KPtTfYUhHyFvG80713-49-15O85:27:[address] [facility] ([facility])Nephrology Progress NoteREPORT#:[id number] REPORT STATUS: SignedDATE:01/02/22 TIME: 2226 PATIENT: KIAH GILES UNIT #: [id number]#: [id number] ROOM[facility]BED: [facility] [place]-1DOB: [birth year] AGE: 76 SEX: F ATTEND: Jeffry More AUTHOR: Suki Fuchs MD * ALL edits or amendments must be made on the electronic/computer document * SubjectiveChief complaint:chest painHPI:This is a 76-year-old female who has past medical history of hypertension, diabetes, coronary artery disease, atrial fibrillation who presented with worsening shortness of breath and on further work-up was 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 She was withnormal kidney function prior to surgery and after her surgery she began to develop oliguria. Her procedure was done without any complications but after her surgery she did require pressor support for hypotension and she was intubated for respiratory acidosis and hypoxia and she was treated with vancomycin for infection treatment. When she was seen this morning she continued to have hypotension and her heart rate was paced by her permanent pacemaker and her urine output was 20 to 30/h. Her family at bedside denied anyhistory of kidney disease, kidney stone, chronic NSAID use or any urinary complaints. They also endorse that her blood pressure and diabetes were mostly controlled. day she was comfortable, apearing less edematous. Objective GeneralVS/I O:Vital Signs: Date Time Temp Pulse Resp B/P B/P Pulse O2 O2 Flow FiO2 Mean Ox Delivery Rate 01/02 2159 [...] scale Measurement Method PATIENT WEIGHT: Weight (lb): 264Weight (oz): 12.4Weight (kg): 120.100 Physical ExamGeneral appearance: alert, awake, orientedHead/eyes: atraumatic, normocephalicENT: moist mucous membranes, normal noseNeck: no JVD, no lymphadenopathyCardiovascular: normal heart sounds, regular rate and rhythmRespiratory: aerating well, clear to auscultationAbdomen: soft, no pulsatile massGenitourinary: urinary catheterExtremities: no gangrene, no swelling Treatment Prophylaxis Treatment ProphylaxisDrain(s)/tube(s): Drain(s)/tube(s): chest (x3) Diagnosis, Assessment PlanFree Text A P:This is a 76-year-old female known to have hypertension, diabetes, atrial fibrillation, s/p permanent pacemaker and history of ablation presenting with shortness of breath and 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 Nephrology is following for: 1. Acute kidney injury: Most likely it is prerenal (cardiorenal), she has been hypotensive postoperatively with requirement for pressor support and inotropic support. Plan is to increase inotropic support or pressor support to bring meanarterial pressure above 65 and give albumin with Lasix to see if it helps him diurese. If he does not respond to higher dose Lasix with albumin then I will consider starting him on CRRT to prevent hyper volemia. 2. Hypervolemia: Plan is to give Lasix and if he does not respond to start him on CRRT for extra fluid removal. 3. His electrolytes were all reviewed to be in normal range plan was to monitorand replace as needed. 4. He was receiving vancomycin so plan was to monitor vancomycin trough levels to prevent ATN. 5/ Metabolic alkalosis secondary to diuretics : Plan to give acetazoleamide if worsening. . Acute kidney injury: Resolved, she is responding to lasix. 2. Hypervolemia: Plan to continue lasix as tolerated.Today she was on low dose twice daily lasix. 3. Hypokalemia/hypomagnesemia:secondary to diuretics, plan was to monitor and replace as needed. 4. She was receiving vancomycin so plan was to monitor vancomycin trough levelsto prevent ATN. 5/ Metabolic alkalosis secondary to diuretics : Plan to give acetazoleamide and monitor closely. 12/28 1. Acute kidney injury: Resolved, she is responding to lasix. 2. Hypervolemia: Plan to continue lasix as tolerated.Today she was on low dose twice daily lasix. 3. Hypokalemia/hypomagnesemia:secondary to diuretics, plan was to monitor and replace as needed. 4. She was receiving vancomycin so plan was to monitor vancomycin trough levelsto prevent ATN. 5/ Metabolic alkalosis secondary to diuretics : Plan to give acetazoleamide and monitor closely. 12/29 1. Acute kidney injury: Resolved, she is responding to lasix. 2. Hypervolemia: Plan to continue lasix as tolerated.Today she was on low dose twice daily lasix. 3. Hypokalemia/hypomagnesemia:secondary to diuretics, plan was to monitor and replace as needed. 4. She was receiving vancomycin so plan was to monitor vancomycin trough levelsto prevent ATN. 5/ Metabolic alkalosis secondary to diuretics : Plan to give acetazoleamide andmonitor closely. 12/30 1. Acute kidney injury: Resolved, she is responding to lasix. 2. Hypervolemia: Plan to continue lasix as tolerated.Today she was on low dose twice daily lasix. 3. Hypokalemia/hypomagnesemia:secondary to diuretics, plan was to monitor and replace as needed. 4. Metabolic alkalosis secondary to diuretics : Plan to continue acetazoleamide and monitor closely. 12/31 1. Acute kidney injury: Resolved, she is responding to lasix. 2. Hypervolemia: Plan to continue lasix as tolerated.Today she was on low dose twice daily lasix. 3. Hypokalemia/hypomagnesemia:secondary to diuretics, plan was to monitor and replace as needed. 4. Metabolic alkalosis secondary to diuretics :Improved so acetazoleamide reduced. . Acute kidney injury: Resolved, she is responding to lasix. 2. Hypervolemia: Plan to continue lasix as tolerated.Today she was on low dose daily lasix. 3. Hypokalemia/hypomagnesemia:secondary to diuretics, plan was to monitor and replace as needed. 4. Metabolic alkalosis secondary to diuretics : acetazoleamide continued. Consultants: cardiology, cardiovascular surgery, critical/assembler unit at 2231 RPT #:[id number] OF REPORTPRProgress [id number]:27:00G.[id number] e for patient yuxfKPQKIEEAQJDGKS1330-28-87Z80:31:17 HC ACL 2022-01-02 17:02:00 [id number] CTTABenHkbmn 0S5Y24nxMQdDHDQ0qM+uXbWE5424-55-09I34:02:00 [facility] ProgREPORT#:[id number] REPORT STATUS: SignedDATE:01/02/22 TIME: 1702 PATIENT: KIAH GILES UNIT #: [id number]#: [id number] [address] [birth year] AGE: 76 SEX: F ATTEND: Jeffry More AUTHOR: Tj Bonner MD * ALL edits or amendments must be made on the electronic/computer document * GeneralPost-op: day 8Status post:1. Mitral valve replacement (31 Magna valve). 2. Coronary artery bypass graft surgery x1 (ROBERTS to LAD). 3. Isolation of left atrial appendage. 4. Pericardiectomy. Objective GeneralVS/I OLast Documented: Result Date Time Pulse Ox 99 01/02 1649 B/P 136/70 01/02 1649 B/P Mean 92.3 01/02 1649 O2 Delivery Nasal cannula 01/02 1649 Temp 36.4 01/02 1649 Pulse 74 01/02 1649 Resp 16 01/02 1649 O2 Flow Rate 3 01/02 0915 FiO2 40 01/02 0000 24 hour I O ending at 0700: 01/02 0700 01/01 1900 Intake Total 1260 Output Total 1500 Balance -240 Intake, Oral 1260 Number 2 Incontinent Voids Number Voids 2 Output, Urine 1500 Patient 120.1 kg Weight Weight Standing scale Measurement Method PATIENT WEIGHT: Weight (lb): 264Weight (oz): 12.4Weight (kg): 120.100 Physical ExamGeneral appearance: awake Current MedicationsMedications:Active Meds + DC'd Last 24 HrsMetoprolol Tartrate (LOPRESSOR) 25 MG Q12HR PO Acetazolamide (DIAMOX) 500 MG Q24H IV Furosemide (LASIX 40 mg/4 mL INJECTION) 40 MG DAILY IV Sterile Water (WATER FOR INJECTION) 5 ML ASDIR PRN IV Potassium Chloride (POTASSIUM CHLORIDE 20MEQ TAB.ER) 40 MEQ DAILY PRN PRN PO Insulin Glargine (Lantus/Semglee) 30 UNIT DAILY SUBQ Insulin Glargine (Lantus/Semglee) 20 UNIT BEDTIME SUBQ Insulin Human Lispro (HUMALOG) 0 AC HS SUBQ Dextrose/Water (DEXTROSE 10% IN WATER) 125 ML ASDIR PRN IV (CKD) Dextrose/Water (DEXTROSE 10% IN WATER) 250 ML ASDIR PRN IV (CKD) Glucagon (GLUCAGON) 1 MG ASDIR PRN IM Amiodarone HCl (CORDARONE) 200 MG BID PO Sterile Water (WATER FOR INJECTION) 5 ML ASDIR PRN IV Sterile Water (WATER FOR INJECTION) 5 ML ASDIR PRN IV Sodium Chloride (SODIUM CHLORIDE) 4 ML RTBID NEB Melatonin (Melatonin) 3 MG BEDTIME PO Sodium Chloride (SODIUM CHLORIDE) 10 ML BID IV Sodium Chloride (SODIUM CHLORIDE) 10 ML ASDIR PRN IV Pantoprazole (PROTONIX) 40 MG DAILY PO Dexmedetomidine/Sodium Chloride (PRECEDEX 1000MCG/NS 250ML) 250 ML ASDIR IV Bisacodyl (DULCOLAX) 10 MG DAILY PRN PRN RECTAL Lactulose (LACTULOSE) 20 GM DAILY PRN PRN PO Magnesium Hydroxide (MILK OF MAGNESIA) 30 ML DAILY PRN PRN PO Aspirin (ASPIRIN) 81 MG DAILY PO Clopidogrel Bisulfate (Plavix) 75 MG DAILY PO Cyanocobalamin (Vitamin B-12 500 mcg tab) 500 MCG DAILY PO Ferrous Sulfate (FERROUS SULFATE) 325 MG DAILY PO Metolazone (metOLazone) 5 MG DAILY PO Polyethylene Glycol (MIRALAX) 17 GM DAILY PO Atorvastatin Calcium (LIPITOR) 40 MG 2100 PO Docusate Sodium (DOCUSATE SODIUM) 100 MG BID PO Senna (SENOKOT) 17.6 MG BEDTIME PO Acetaminophen (TYLENOL) 650 MG Q4H PRN PRN PO Acetylcysteine (MUCOMYST FOR RT) 200 MG RTQ6H NEB Albuterol/Ipratropium (DUONEB) 3 ML RTQ6H NEB Bisacodyl (DULCOLAX) 10 MG ONCE PRN RECTAL Dopamine HCl/Dextrose (DOPamine 400MG/D5W 250ML) 250 ML ASDIR IV Milrinone Lactate/Dextrose (MILRINONE 20MG/D5W 100ML) 100 ML ASDIR IV (CKD) Vasopressin (VASOSTRICT 20 Unit/NS 100ML) 100 ML ASDIR IV (CKD) Acetaminophen (TYLENOL) 650 MG Q4H PRN PRN RECTAL Calcium Chloride (CALCIUM CHLORIDE) 1 GM ASDIR PRN IV Magnesium Sulfate (MAGNESIUM SULFATE 4GM/SWFI 100ML) 100 ML ASDIR PRN IV Magnesium Sulfate (MAGNESIUM SULFATE 2GM/SWFI 50ML) 50 ML ASDIR PRN IV Magnesium Sulfate/Dextrose (MAGNESIUM SULFATE 1GM/D5W 100ML) 100 ML ASDIR PRN IV Nitroglycerin/Dextrose (NITROGLYCERIN 50,000MCG/D5W 250ML) 250 ML ASDIR IV Norepinephrine Bitartrate (NOREPINEPHRINE 8 MG/NS 250 ML) 250 ML TITRATE IV Potassium Chloride (KCL 20MEQ/SWFI 100ML) 100 ML ASDIR PRN IV Sodium Bicarbonate (SODIUM BICARBONATE) 50 MEQ ASDIR PRN IV Ondansetron HCl (ZOFRAN) 4 MG Q6H PRN PRN IV ResultsFindings/Data:Laboratory Tests 01/02 0415 Blood Gas Puncture Site [...] 01/02 01/02 01/01 1214 0900 0415 0400 2137Chemistry Sodium (134 - 147 mEq/L) 143 Potassium [...] (Auto) (14.0 - 32.0 %) 5.1 L Colquitt % (Auto) (4.8 - 9.0 %) 9.4 H Eos % (Auto) (0.3 - 3.7 %) 1.5 Baso % (Auto) (0.0 - 2.0 %) 0.4 Neut # (Auto) (2.0 - 7.6 x10 3/uL) 7.28 Lymph # (Auto) (1.0 - 3.8 x10 3/uL) 0.46 L [place] # (Auto) (0.1 - 0.8 x10 3/uL) 0.85 H Eos # (Auto) (0.0 - 0.2 x10 3/uL) 0.14 Baso # (Auto) (0.0 - 0.2 x10 3/uL) 0.04 Abs Immat Gran (auto) (0.00 - 0.03 x10 3/uL) 0.31 H Add Manual Diff NO Immature Gran % (0.0 - 2.0 %) 3.4 H Nucleated RBC % (0 - 0 %) 1.5 H Nucleated RBCs # (Man) (0.0 - 0.1 x10 3/uL) 0.14 H Radiology data:Recent Impressions:RADIOLOGY - XR CHEST 1 V 01/02 0531 Report Impression - Status: SIGNED Entered: 01/02/2022 0801 IMPRESSION: No acute findings. Unchanged study. Impression By: [id number] - Syeda Leblanc M.D. Results: x-ray personally reviewed, current med profile rev'd Diagnosis, Assessment PlanHospital course to date:02/02/22 doing very wellde linede tubediuresisambulateadvance diettransfer to CV1d/c planning at 1704 RPT #:[id number] OF REPORTPRProgress [id number]:02:00G.[id number] e for patient avhuPSDZKWVHWOZJWE5265-56-33I98:05:07 HC ACL 2022-01-02 14:45:00 [id number]7Bf NLC91LkLMZAf DM27X9CxJy+HfkKvg/ArRl3J6120-75-99I40:45:[address] [facility] ([facility])Cardiology Progress NoteREPORT#:[id number] REPORT STATUS: SignedDATE:01/02/22 TIME: 1445 PATIENT: KIAH GILES UNIT #: [id number]#: [id number] [address] [birth year] AGE: 76 SEX: F ATTEND: Jeffry More MDADM AUTHOR: Isabella Clemens * ALL edits or amendments must be made on the electronic/computer document * SubjectiveComments:Working with PT Objective GeneralVS/I O:24 hour I O ending at 0700: 01/02 0700 01/01 1900 Intake Total 1260 Output Total 1500 Balance -240 Intake, Oral 1260 Number 2 Incontinent Voids Number Voids 2 Output, Urine 1500 Patient 120.1 kg Weight Weight Standing scale Measurement Method Vital Signs: Date Time Temp Pulse Resp B/P B/P Pulse O2 O2 Flow FiO2 Mean Ox Delivery Rate 01/02 1300 [...] 69 21 129/60 87 100 01/02 2000 36.8 01/02 2000 Nasal 5 cannula 01/02 2000 69 21 129/60 83 100 Nasal 3 cannula 01/01 1900 75 23 132/61 88 99 01/01 1600 73 45 142/64 92 01/01 1501 72 31 127/58 84 PATIENT WEIGHT: Weight (lb): 264Weight (oz): 12.4Weight (kg): 120.100 Medications:Active Meds + DC'd Last 24 HrsMetoprolol Tartrate (LOPRESSOR) 25 MG Q12HR PO Acetazolamide (DIAMOX) 500 MG Q24H IV Furosemide (LASIX 40 mg/4 mL INJECTION) 40 MG DAILY IV Sterile Water (WATER FOR INJECTION) 5 ML ASDIR PRN IV Potassium Chloride (POTASSIUM CHLORIDE 20MEQ TAB.ER) 40 MEQ DAILY PRN PRN PO Insulin Glargine (Lantus/Semglee) 30 UNIT DAILY SUBQ Insulin Glargine (Lantus/Semglee) 20 UNIT BEDTIME SUBQ Insulin Human Lispro (HUMALOG) 0 AC HS SUBQ Dextrose/Water (DEXTROSE 10% IN WATER) 125 ML ASDIR PRN IV (CKD) Dextrose/Water (DEXTROSE 10% IN WATER) 250 ML ASDIR PRN IV (CKD) Glucagon (GLUCAGON) 1 MG ASDIR PRN IM Amiodarone HCl (CORDARONE) 200 MG BID PO Sterile Water (WATER FOR INJECTION) 5 ML ASDIR PRN IV Sterile Water (WATER FOR INJECTION) 5 ML ASDIR PRN IV Sodium Chloride (SODIUM CHLORIDE) 4 ML RTBID NEB Melatonin (Melatonin) 3 MG BEDTIME PO Sodium Chloride (SODIUM CHLORIDE) 10 ML BID IV Sodium Chloride (SODIUM CHLORIDE) 10 ML ASDIR PRN IV Pantoprazole (PROTONIX) 40 MG DAILY PO Dexmedetomidine/Sodium Chloride (PRECEDEX 1000MCG/NS 250ML) 250 ML ASDIR IV Bisacodyl (DULCOLAX) 10 MG DAILY PRN PRN RECTAL Lactulose (LACTULOSE) 20 GM DAILY PRN PRN PO Magnesium Hydroxide (MILK OF MAGNESIA) 30 ML DAILY PRN PRN PO Aspirin (ASPIRIN) 81 MG DAILY PO Clopidogrel Bisulfate (Plavix) 75 MG DAILY PO Cyanocobalamin (Vitamin B-12 500 mcg tab) 500 MCG DAILY PO Ferrous Sulfate (FERROUS SULFATE) 325 MG DAILY PO Metolazone (metOLazone) 5 MG DAILY PO Polyethylene Glycol (MIRALAX) 17 GM DAILY PO Atorvastatin Calcium (LIPITOR) 40 MG 2100 PO Docusate Sodium (DOCUSATE SODIUM) 100 MG BID PO Senna (SENOKOT) 17.6 MG BEDTIME PO Acetaminophen (TYLENOL) 650 MG Q4H PRN PRN PO Acetylcysteine (MUCOMYST FOR RT) 200 MG RTQ6H NEB Albuterol/Ipratropium (DUONEB) 3 ML RTQ6H NEB Bisacodyl (DULCOLAX) 10 MG ONCE PRN RECTAL Dopamine HCl/Dextrose (DOPamine 400MG/D5W 250ML) 250 ML ASDIR IV Milrinone Lactate/Dextrose (MILRINONE 20MG/D5W 100ML) 100 ML ASDIR IV (CKD) Vasopressin (VASOSTRICT 20 Unit/NS 100ML) 100 ML ASDIR IV (CKD) Acetaminophen (TYLENOL) 650 MG Q4H PRN PRN RECTAL Calcium Chloride (CALCIUM CHLORIDE) 1 GM ASDIR PRN IV Magnesium Sulfate (MAGNESIUM SULFATE 4GM/SWFI 100ML) 100 ML ASDIR PRN IV Magnesium Sulfate (MAGNESIUM SULFATE 2GM/SWFI 50ML) 50 ML ASDIR PRN IV Magnesium Sulfate/Dextrose (MAGNESIUM SULFATE 1GM/D5W 100ML) 100 ML ASDIR PRN IV Nitroglycerin/Dextrose (NITROGLYCERIN 50,000MCG/D5W 250ML) 250 ML ASDIR IV Norepinephrine Bitartrate (NOREPINEPHRINE 8 MG/NS 250 ML) 250 ML TITRATE IV Potassium Chloride (KCL 20MEQ/SWFI 100ML) 100 ML ASDIR PRN IV Sodium Bicarbonate (SODIUM BICARBONATE) 50 MEQ ASDIR PRN IV Ondansetron HCl (ZOFRAN) 4 MG Q6H PRN PRN IV Status post:CABG, MVR, and ILAAPacemaker: permanent Physical ExamGeneral appearance: frail, obese, alert, awake, conversationalENT: normal noseNeck: no JVDCardiovascular: CV assessment: pedal edema, regular rate and rhythmRespiratory: decreased breath sounds, on oxygen, shortness of breath, no distressAbdomen: obeseGenitourinary: no flank pain, no urinary catheterUpper extremity: UE assessment: normal temperature, no edemaLower extremity: LE assessment: edemaNeuro/CAPTAIN FIRE PREVENTION BUREAU: alert, 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Skin: dryPsychiatry: normal affect, normal mood ResultsFindings/Data:Laboratory Tests 01/02 0415 Blood Gas Puncture Site [...] (Auto) (14.0 - 32.0 %) 5.1 L [place] % (Auto) (4.8 - 9.0 %) 9.4 H Eos % (Auto) (0.3 - 3.7 %) 1.5 Baso % (Auto) (0.0 - 2.0 %) 0.4 Neut # (Auto) (2.0 - 7.6 x10 3/uL) 7.28 Lymph # (Auto) (1.0 - 3.8 x10 3/uL) 0.46 L [place] # (Auto) (0.1 - 0.8 x10 3/uL) 0.85 H Eos # (Auto) (0.0 - 0.2 x10 3/uL) 0.14 Baso # (Auto) (0.0 - 0.2 x10 3/uL) 0.04 Abs Immat Gran (auto) (0.00 - 0.03 x10 3/uL) 0.31 H Add Manual Diff NO Immature Gran % (0.0 - 2.0 %) 3.4 H Nucleated RBC % (0 - 0 %) 1.5 H Nucleated RBCs # (Man) (0.0 - 0.1 x10 3/uL) 0.14 H Laboratory Tests 01/02 0400 Chemistry Magnesium (1.80 - 2.40 mg/dL) 2.02 Radiology data:Recent Impressions:RADIOLOGY - XR CHEST 1 V 01/02 0531 Report Impression - Status: SIGNED Entered: 01/02/2022 0801 IMPRESSION: No acute findings. Unchanged study. Impression By: [id number] Herminia Leblanc M.D. Results: labs reviewed, vital signs reviewed, rhythm personally rev'd Diagnosis, Assessment PlanPlan discussed with: patient, daughter Free Text DxA P NotesFree Text DxA P Notes:Ms Giles is a 76 y/o Femal w/ PMHx: CAD, HLD, T2DM, RONA (CPAP at home), smoker,Crohn's disease, AF s/p ablation (on Xarelto), s/p PPM and lymphedema. Dr. Ramos is consulted for CAD s/p CABG, MVR. 1. CAD s/p CABG, MVR, and ILAA. post-op per CTS and critical careOn Plavix, aspirin, beta-delma, statinvolume management per Nephrology negative fluid balance 2. Chronic AF s/p PPM/ablation. had ILAA during bypass no need for AC 3. Hypertension continue metoprolol tartrate to 25 mg BID 4. HyperlipidemiaContinue statins. 5. Crohn's disease. Per IM. 6. MARCELLO - resolvingper Nephrology 7. Resp insufficiencyBiPAP as neededon Nasal cannulaSlowly improving 8. Acute on chronic diastolic CHF/volume overloaddiuretic management per nephrology/CTS Slowly improvingcontinue supportive carePT/OT as tolerated at 1450 at 1853 RPT #:[id number] OF REPORTPRProgress [id number]:45:00G.[id number] e for patient [id number]3Q01:50:30 [facility] 2022-01-02 11:45:00 [id number] [id number]:45:00 [facility] ([facility])Hospitalist Discharge SummaryREPORT#:[id number] REPORT STATUS: SignedDATE:01/02/22 TIME: 1145 PATIENT: KIAH GILES UNIT #: [id number]#: [id number] [address] [birth year] AGE: 76 SEX: F ATTEND: Jeffry More AUTHOR: Meyrl Rosa MD * ALL edits or amendments must be made on the electronic/computer document * General InformationDate of admission:Observation Start Date: Date of admission: 12/17/21 Discharge date: 01/02/22Admission diagnosis: CAD -- multiple vesssels HTNDM HLDCrohn's diseasechronic atrial fibrillation status post 3 ablationsmacular degenerationobesityobstructive sleep apneaacute respiratory failure --post surgery severe mitral valve regurgitation constrictive pericarditis Discharge diagnosis: CAD -- multiple vesssels HTNDM HLDCrohn's diseasechronic atrial fibrillation status post 3 ablationsmacular degenerationobesityobstructive sleep apneaacute respiratory failure --post surgery severe mitral valve regurgitation constrictive pericarditis Hospital course: CAD -- multiple vesssels HTNDM HLDCrohn's diseasechronic atrial fibrillation status post 3 ablationsmacular degenerationobesityobstructive sleep apneaacute respiratory failure --post surgery severe mitral valve [...] MVR (31 Magna valve), CABG x 1 (ROBERTS-LAD), ILAA and pericardectomy -- she remain intubated on the vent -- chest tube are in place -on levophed and epinephrine drip -- monitor in CCU 12/20- she was extubated --on bipap now -- NPO --off Levophed/epinephrine, continue vasopressin, inotropes with milrinone, -- chest tube remain in place -- she is stable post surgery 12/21-- she is on high flow O2 -- edema --lasix --chest tube in place --- she is hemodynamic stable -- continue monitor in CCU 12/22- she remain on high O2 CXR show worsening pulmonary venous vascular congestion. --lasix iv tid -- chest tube are [...] drip as nurse -- continue supportive care 12/27On lasix and insulin drips. Back on lantus dose BID, trend glucose.Continue PT/OT.12/28Increase lantus BID. 12/29-- she remain on bipap [...] is stable to discharge to inpatient rehab facility . Consultants: cardiology, cardiovascular surgery, critical/assembler unit Free Text DxA P NotesFree text DxA P notes: 76 years old female with PMH of macular degeneration, obesity, obstructive sleepapnea (CPAP at home), former smoker, hypertension, hyperlipidemia, diabetes, Crohn's disease, chronic atrial fibrillation status post 3 ablations in the past(on Xarelto), pacemaker placement CAD -- multiple vesssels HTNDM HLDCrohn's diseasechronic atrial fibrillation status post 3 ablationsmacular degenerationobesityobstructive sleep apneaacute respiratory failure --post surgery severe mitral valve [...] MVR (31 Magna valve), CABG x 1 (ROBERTS-LAD), ILAA and pericardectomy -- she remain intubated on the vent -- chest tube are in place -on levophed and epinephrine drip -- monitor in CCU 12/20- she was extubated --on bipap now -- NPO --off Levophed/epinephrine, continue vasopressin, inotropes with milrinone, -- chest tube remain in place -- she is stable post surgery 12/21-- she is on high flow O2 -- edema --lasix --chest tube in place --- she is hemodynamic stable -- continue monitor in CCU 12/22- she remain on high O2 CXR show worsening pulmonary venous vascular congestion. --lasix iv tid -- chest tube are [...] drip as nurse -- continue supportive care 12/27On lasix and insulin drips. Back on lantus dose BID, trend glucose.Continue PT/OT.12/28Increase lantus BID. 12/29-- she remain on bipap [...] rehab placement as rehab Med Rec Med RecDischarge meds:Stop taking the following medications:FUROSEMIDE (LASIX) 20 MG TAB 10 MILLIGRAM ORAL DAILY. METOLAZONE (ZAROXOLYN) 10 MG TAB 10 MILLIGRAM ORAL DAILY. Continue taking these medications:RIVAROXABAN (XARELTO) 20 MG TAB 20 MILLIGRAM ORAL [...] DAILY. INSULIN DETEMIR (LEVEMIR FlexTouch (15mL)) 100 UNIT/ML (3 ML) PEN.INJCTR 50 UNITS SUBCUTANEOUS TWICE DAILY. INSULIN LISPRO (HumaLOG CARTRIDGE (15mL)) 100 UNIT/ML CARTRIDGE 0 UNITS SUBCUTANEOUS THREE TIMES A DAY. Instructions: per sliding scale LIRAGLUTIDE (VICTOZA (6mL)) 0.6 MG/0.1 ML (18 MG/3 ML) PEN.INJCTR 1.8 MILLIGRAM SUBCUTANEOUS DAILY. metFORMIN (GLUCOPHAGE) 1,000 MG TAB 1,000 MILLIGRAM ORAL TWICE DAILY. Instructions: TAKE WITH MEALS ADALIMUMAB + SUPPLIES (HUMIRA PREFILLED PEN) 40 MG/0.8 ML KIT 40 MILLIGRAM SUBCUTANEOUS EVERY 14 DAYS. azaTHIOprine (IMURAN) 50 MG TAB 50 MILLIGRAM ORAL DAILY. Start taking the following new medications:IPRATROPIUM/ALBUTEROL (DUONEB 0.5 MG-3/3ML) 0.5 MG-3 MG (2.5 MG BASE)/3 ML [...] 9AM 4PM. Qty = 30 No Refills ObjectiveVS/I OLast Documented: Result Date Time Pulse Ox 99 01/02 1300 Pulse 72 01/02 1300 Resp 25 01/02 1300 B/P 148/83 01/02 1000 B/P Mean 108 01/02 1000 O2 Delivery Nasal cannula 01/02 0915 O2 Flow Rate 3 01/02 0915 FiO2 40 01/02 0000 Temp 36.6 01/02 0000 24 hour I O ending at 0700: 01/02 0700 01/01 1900 Intake Total 1260 Output Total 1500 Balance -240 Intake, Oral 1260 Number 2 Incontinent Voids Number Voids 2 Output, Urine 1500 Patient 120.1 kg Weight Weight Standing scale Measurement Method General appearance: alert, awake, orientedHead/Eyes: atraumatic, normal conjunctiva/sclera, normal eyelids/periorb., normocephalicNeck: full range of motion, non-tender, no JVDCardiovascular: normal heart sounds, regular rate rhythmRespiratory: decreased breath sounds, clear to auscultationAbdomen: non-tender, normal bowel sounds, soft, no distentionExtremities: edema, moves all, no calf tendernessNeuro/CAPTAIN FIRE PREVENTION BUREAU: alert, 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Skin: dry, intact ResultsFindings/Data:Laboratory Tests: 01/02 01/02 01/02 01/02 1214 0900 0415 0400Blood Gas Puncture Site Art Line O2 Saturation [...] L Temperature (F) 98 O2 Delivery Device CannulaChemistry Sodium (134 - 147 mEq/L) 143 Potassium [...] mg/dL) 9.8 Magnesium (1.80 - 2.40 mg/dL) 2.02Hematology WBC (4.5 - 11.0 x10 3/uL) 9.1 [...] (Auto) (14.0 - 32.0 %) 5.1 L [place] % (Auto) (4.8 - 9.0 %) 9.4 H Eos % (Auto) (0.3 - 3.7 %) 1.5 Baso % (Auto) (0.0 - 2.0 %) 0.4 Neut # (Auto) (2.0 - 7.6 x10 3/uL) 7.28 Lymph # (Auto) (1.0 - 3.8 x10 3/uL) 0.46 L [place] # (Auto) (0.1 - 0.8 x10 3/uL) 0.85 H Eos # (Auto) (0.0 - 0.2 x10 3/uL) 0.14 Baso # (Auto) (0.0 - 0.2 x10 3/uL) 0.04 Abs Immat Gran (auto) (0.00 - 0.03 x10 3/uL) 0.31 H Add Manual Diff NO Immature Gran % (0.0 - 2.0 %) 3.4 H Nucleated RBC % (0 - 0 %) 1.5 H Nucleated RBCs # (Man) (0.0 - 0.1 x10 3/uL) 0.14 H 01/01 01/01 2137 1809 Chemistry POC Glucose (70 - 110 MG/DL) 196 H 218 H Radiology data:Recent Impressions:RADIOLOGY - XR CHEST 1 V 01/02 2046 Report Impression - Status: SIGNED Entered: 01/02/2022 0801 IMPRESSION: No acute findings. Unchanged study. Impression By: [id number] - Syeda Leblanc M.D. Discharge Instructions PCPDischarge to: Inpatient Rehab FacilityAdditional Discharge Routines: Attending Follow-UpDiet: CardiacActivity: As Tolerated Follow-up AppointmentsAttending Physician: Attending Physician: Jeffry More MD Quality: Discharge Current MedicationsCurrent medication review:Home Medications:RIVAROXABAN (XARELTO) 20 MG PO DAILY amLODIPine (NORVASC) [...] DAILY INSULIN DETEMIR (LEVEMIR FlexTouch (15mL)) 50 UNITS SUBQ BID INSULIN LISPRO (HumaLOG CARTRIDGE (15mL)) 0 UNITS SUBQ TID LIRAGLUTIDE (VICTOZA (6mL)) 1.8 MG SUBQ DAILY metFORMIN (GLUCOPHAGE) 1,000 MG PO BID ADALIMUMAB + SUPPLIES (HUMIRA PREFILLED PEN) 40 MG SUBQ Q14D azaTHIOprine (IMURAN) 50 MG PO DAILY I attest that the foregoing medication list in the medical record is true, accurate, and complete to the best of my knowledge. at 1412 RPT #:[id number] OF REPORTDSDischarge [id number]:45:00G.[id number] able for patient [id number]:12:37 [facility] 2022-01-02 09:16:00 [id number] zTysZpabYrrv7rMDxitSbLr44013-14-13U19:16:[address] [facility] ([facility])Critical Care Progress NoteREPORT#:[id number] REPORT STATUS: SignedDATE:01/02/22 TIME: 09 PATIENT: KIAH GILES UNIT #: [id number]#: [id number] [address] [birth year] AGE: 76 SEX: F ATTEND: Jeffry More [facility] AUTHOR: Kenton Gonzalez MD * ALL edits or amendments must be made on the electronic/computer document * SubjectiveChief complaint: S/P CABG/MVRCOPDVolume overloadObesity hypoventilation syndrome on NIPPVChronic respiratory acidosis and hypercapnia HPI: Patient seen and discussed during MDR this morning in CVICU room #2205. She is status post CABG. Patient has been existing diagnosis of COPD and obesity related hypoventilation syndrome. She was on BiPAP at night. Patient is being diuresed with Lasix. Ambulating with physical therapy. Vital signs are stable with a heart rate of 72 in sinus rhythm, blood pressure 148/83 mmHg, pulse ox 88% while on nasal cannula oxygen and respiratory rate of 23. Her latest blood gas shows a pH of 7.35, pCO2 of 69 mmHg, pO2 of 94 mmHg and bicarbonate of 38 mmol with base excess at 12.7. Hemoglobin is 8.1 g/dL and creatinine is 1.0 mg/dL. Patient has chronic respiratory acidosis with baseline hypercapnia. He is awake, interactive, following commands and moving all 4 extremities. Brenda Giles is a 76-year-old morbidly obese female with history of HTN, HL, IDDM, smoking, RONA on CPAP and home O2 as needed, macular degeneration, Crohn's disease on immunosuppressant medications, and chronic Afib s/p ablation and PPM (on Xarelto), who was admitted recently with heart failure symptoms. Patient underwent elective cardiac cath that showed severe multivessel coronary artery disease not suitable for percutaneous intervention. 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 She went for surgical revascularization today and preop JORDEN revealed severe mitral regurgitation. After discussing new findings with family, patient underwent MVR (31 Magna valve), CABG x 1 (ROBERTS-LAD), ILAA and pericardectomy on 12/19/2021. Has EF of 45%. Crystalloid 1 L, urine output 700, Cell Saver 700. She is a-paced at baseline. Surgery went well and patient was transferred to CVICU postop in a stable surgical condition. She is currentlyintubated on 2 mics of epinephrine, 2 mics of Levophed and insulin drip. CI 3.0,SvO2 in 60%s, CVP 15 and PAP in 60s. Patient was extubated in a timely fashion. She will be transferred out of the CVICU to [facility] today.Patient reports:Yes: shortness of breath. No: diarrhea, fever, headache, vomiting. Nursing reports:Yes: shortness of breath. No: diarrhea, fever, vomiting. Review of SystemsConstitutional:Denies: fever, lethargy, malaise. Skin:Denies: diaphoresis, ecchymosis, rash, swelling. Allergy/Immun:Denies: anaphylaxis, hives. Eyes:Denies: redness, discharge, visual loss/blurred. ENT:Denies: nose bleeding, throat swelling, tongue swelling. Respiratory:Denies: DOUGLASS (dyspnea on exertion), hemoptysis, non productive cough, SOB, wheezing. Cardiovascular:Denies: DOUGLASS (dyspnea on exertion), edema. GI:Denies: hematemesis, hematochezia, hiatal hernia, melena. :Denies: hematuria, nocturia. Heme:Denies: bleeding, bruising. Endocrine:Denies: polydipsia, polyphagia. Neuro:Denies: confusion, dizziness, numbness, seizure. Psych:Denies: agitation, anxiety, homicidal ideation, hostile, insomnia. Objective GeneralVS/I OLast Documented: Result Date Time B/P 119/54 01/02 723 B/P Mean 78 01/02 723 Pulse 74 01/02 723 Pulse Ox 94 [...] scale Measurement Method PATIENT WEIGHT: Weight (lb): 264Weight (oz): 12.4Weight (kg): 120.100 Medications:Active Meds + DC'd Last 24 HrsMetoprolol Tartrate (LOPRESSOR) 25 MG Q12HR PO Acetazolamide (DIAMOX) 500 MG Q24H IV Furosemide (LASIX 40 mg/4 mL INJECTION) 40 MG DAILY IV Sterile Water (WATER FOR INJECTION) 5 ML ASDIR PRN IV Potassium Chloride (POTASSIUM CHLORIDE 20MEQ TAB.ER) 40 MEQ DAILY PRN PRN PO Insulin Glargine (Lantus/Semglee) 30 UNIT DAILY SUBQ Insulin Glargine (Lantus/Semglee) 20 UNIT BEDTIME SUBQ Insulin Human Lispro (HUMALOG) 0 AC HS SUBQ Dextrose/Water (DEXTROSE 10% IN WATER) 125 ML ASDIR PRN IV (CKD) Dextrose/Water (DEXTROSE 10% IN WATER) 250 ML ASDIR PRN IV (CKD) Glucagon (GLUCAGON) 1 MG ASDIR PRN IM Amiodarone HCl (CORDARONE) 200 MG BID PO Sterile Water (WATER FOR INJECTION) 5 ML ASDIR PRN IV Sterile Water (WATER FOR INJECTION) 5 ML ASDIR PRN IV Sodium Chloride (SODIUM CHLORIDE) 4 ML RTBID NEB Melatonin (Melatonin) 3 MG BEDTIME PO Sodium Chloride (SODIUM CHLORIDE) 10 ML BID IV Sodium Chloride (SODIUM CHLORIDE) 10 ML ASDIR PRN IV Pantoprazole (PROTONIX) 40 MG DAILY PO Dexmedetomidine/Sodium Chloride (PRECEDEX 1000MCG/NS 250ML) 250 ML ASDIR IV Bisacodyl (DULCOLAX) 10 MG DAILY PRN PRN RECTAL Lactulose (LACTULOSE) 20 GM DAILY PRN PRN PO Magnesium Hydroxide (MILK OF MAGNESIA) 30 ML DAILY PRN PRN PO Aspirin (ASPIRIN) 81 MG DAILY PO Clopidogrel Bisulfate (Plavix) 75 MG DAILY PO Cyanocobalamin (Vitamin B-12 500 mcg tab) 500 MCG DAILY PO Ferrous Sulfate (FERROUS SULFATE) 325 MG DAILY PO Metolazone (metOLazone) 5 MG DAILY PO Polyethylene Glycol (MIRALAX) 17 GM DAILY PO Atorvastatin Calcium (LIPITOR) 40 MG 2100 PO Docusate Sodium (DOCUSATE SODIUM) 100 MG BID PO Metoprolol Tartrate (LOPRESSOR) 12.5 MG Q12HR PO (DC) Senna (SENOKOT) 17.6 MG BEDTIME PO Acetaminophen (TYLENOL) 650 MG Q4H PRN PRN PO Acetylcysteine (MUCOMYST FOR RT) 200 MG RTQ6H NEB Albuterol/Ipratropium (DUONEB) 3 ML RTQ6H NEB Bisacodyl (DULCOLAX) 10 MG ONCE PRN RECTAL Dopamine HCl/Dextrose (DOPamine 400MG/D5W 250ML) 250 ML ASDIR IV Milrinone Lactate/Dextrose (MILRINONE 20MG/D5W 100ML) 100 ML ASDIR IV (CKD) Vasopressin (VASOSTRICT 20 Unit/NS 100ML) 100 ML ASDIR IV (CKD) Acetaminophen (TYLENOL) 650 MG Q4H PRN PRN RECTAL Calcium Chloride (CALCIUM CHLORIDE) 1 GM ASDIR PRN IV Magnesium Sulfate (MAGNESIUM SULFATE 4GM/SWFI 100ML) 100 ML ASDIR PRN IV Magnesium Sulfate (MAGNESIUM SULFATE 2GM/SWFI 50ML) 50 ML ASDIR PRN IV Magnesium Sulfate/Dextrose (MAGNESIUM SULFATE 1GM/D5W 100ML) 100 ML ASDIR PRN IV Nitroglycerin/Dextrose (NITROGLYCERIN 50,000MCG/D5W 250ML) 250 ML ASDIR IV Norepinephrine Bitartrate (NOREPINEPHRINE 8 MG/NS 250 ML) 250 ML TITRATE IV Potassium Chloride (KCL 20MEQ/SWFI 100ML) 100 ML ASDIR PRN IV Sodium Bicarbonate (SODIUM BICARBONATE) 50 MEQ ASDIR PRN IV Ondansetron HCl (ZOFRAN) 4 MG Q6H PRN PRN IV Status post: CABG Physical ExamGeneral appearance: alert, awake, oriented, no acute distress, pleasant, conversational, mental status normal, no respiratory distressHead/eyes: atraumatic, clear cornea, normocephalic, PERRLENT: moist mucosal membranes, normal nose, normal sinusNeck: non-tender, normal thyroid, no JVD, no masses or swellingCardiovascular: normal heart sounds, regular rate and rhythm, normal S1/Q0Ztmyblfiter: decreased breath sounds, aerating well, symmetric expansion, no distressAbdomen: obese, soft, no distention, no guarding, no mass/organomegaly, no reboundExtremities: no clubbing, no cyanosis, no edemaNeuro/CAPTAIN FIRE PREVENTION BUREAU: alert, 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, CNII-XII intact, normal speech, no motor deficitsSkin: dry, normal color, normal temperature, no rashPsychiatry: normal affect, normal judgment/insight, normal mood, not homicidal, not suicidal, no hallucinations ResultsFindings/data:Laboratory Tests 01/02 0415 Blood Gas Puncture Site [...] 01/02 01/02 01/01 01/01 0900 0415 0400 6369 1803 Chemistry Sodium (134 - 147 mEq/L) 143 [...] (Auto) (14.0 - 32.0 %) 5.1 L [place] % (Auto) (4.8 - 9.0 %) 9.4 H Eos % (Auto) (0.3 - 3.7 %) 1.5 Baso % (Auto) (0.0 - 2.0 %) 0.4 Neut # (Auto) (2.0 - 7.6 x10 3/uL) 7.28 Lymph # (Auto) (1.0 - 3.8 x10 3/uL) 0.46 L [place] # (Auto) (0.1 - 0.8 x10 3/uL) 0.85 H Eos # (Auto) (0.0 - 0.2 x10 3/uL) 0.14 Baso # (Auto) (0.0 - 0.2 x10 3/uL) 0.04 Abs Immat Gran (auto) (0.00 - 0.03 x10 3/uL) 0.31 H Add Manual Diff NO Immature Gran % (0.0 - 2.0 %) 3.4 H Nucleated RBC % (0 - 0 %) 1.5 H Nucleated RBCs # (Man) (0.0 - 0.1 x10 3/uL) 0.14 H Laboratory Tests 01/02/22 0400:[Embedded Image Not Available] Radiology dataRecent Impressions:RADIOLOGY - XR CHEST 1 V 01/02 0531 Report Impression - Status: SIGNED Entered: 01/02/2022 0801 IMPRESSION: No acute findings. Unchanged study. Impression By: [id number] - Syeda Leblanc M.D. Results: labs reviewed, vital signs reviewed, rhythm personally rev'd, current med profile rev'd Free Text Obj NotesFree Text Obj Notes:General appearance: elderly female in no acute distress, interactiveHEENT: atraumatic, normocephalic, moist mucosal membranesNeck: full range of motion, supple with no meningismusCardiovascular: S1S2 regular rate and rhythm, pacedRespiratory: symmetric expansion, no acute respiratory distressAbdomen: soft, obese, non-tender, no distention, no guardingGenitourinary: [place] with clear urineExtremities: pedal pulses palpable, moves all, no clubbing, no cyanosis, BLE edemaMusculoskeletal: normal inspection, no muscle spasmNeuro/CAPTAIN FIRE PREVENTION BUREAU: Alert and oriented x3, CNII-XII grossly intact, no motor deficitsSkin: dry, intact and clean surgery site Treatment Prophylaxis Treatment ProphylaxisDrain(s)/tube(s): Drain(s)/tube(s): chest (x3) Diagnosis, Assessment PlanFree text A P: Problem List: S/P CABG/MVRCOPDVolume overloadObesity hypoventilation syndromeChronic respiratory acidosis and hypercapniaAcute blood loss anemia Assessment and Plan: Kiah Giles is a 76-year-old morbidly obese female with history of HTN, HL, IDDM, smoking, RONA on CPAP and home O2 as needed, macular degeneration, Crohn's disease on immunosuppressant medications, and chronic Afib s/p ablation and PPM (on Xarelto), who was admitted recently with heart failure symptoms. Patient underwent elective cardiac cath that showed severe multivessel coronary artery disease not suitable for percutaneous intervention. 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 She went for surgical revascularization today and preop JORDEN revealed severe mitral regurgitation. After discussing new findings with family, patient underwent MVR ( Magna valve), CABG x 1 (ROBERTS-LAD), ILAA and pericardectomy on 12/19/2021. Has EF of 45%. Crystalloid 1 L, urine output 700, Cell Saver 700. She is a-paced at baseline. Surgery went well and patient was transferred to CVICU postop in a stable surgical condition. She is currentlyintubated on 2 mics of epinephrine, 2 mics of Levophed and insulin drip. CI 3.0,SvO2 in 60%s, CVP 15 and PAP in 60s. Remains neuro intact, multimodal pain control, avoid opiatesPatient is on BiPAP at night for underlying RONA home CPAP as needed 14-18.She is on nasal cannula [address] shows worsening pulmonary edema and atelectasis. Also has pleural effusions ultrasound not a big pocket to safely tap.Duo nebs and Mucomyst. Encourage incentive spirometry. Family at bedside during spirometry with her.Patient is being diuresed with Lasix twice daily and Diamox twice daily. She does have respiratory acidosis with metabolic alkalosis which is balanced with apH of 7.39.Renal followingWhite count is stable. No signs of infection or fever. Continue to monitor. Hemoglobin is stable.Continue beta-delma and amiodarone. Paced rhythmPatient is on insulin drip for control of her sugars. Increase Lantus to 30 twice daily.Patient still has [place] for accurate ins and outs Total critical care time 40 minutes 12/29Waxing and waning mental status, continue melatonin at bedtimeContinue supplemental oxygen and titrate FiO2 to keep saturation more than 90%, on 6 L nasal cannula, alternating with BiPAP 18/7 and 30%Continue follow ABGs and chest x-raysInhaled bronchodilators as neededEncourage incentive spirometryWhite count is stable. No signs of infection or fever. Continue to monitor. Hemoglobin is stable.Continue beta-delma and amiodarone. Diuresis with Bumex 500 mg every 12 hours. Received 1 dose of Lasix IV x1 earlier in the morningMonitor kidney function and trend creatinineMonitor and replete electrolytesStrict I O'sCardiac diet with bowel regimenDecreased Lantus insulin to 20 5 in the morning and 20 at nightContinue monitoring blood glucoseVTE prophylaxisStress ulcer prophylaxisDiscussed with ICU team, CV surgery and daughterCritical care time 39 minutes 12/30Neuro status appears at baseline, avoid narcotics and sedatives, monitor for [id number] well on HFNC, wean O2 for goal sats in high 80s, obtain ABG as needed, BiPAP use for uncompensated hypercapnia, CXR and CT chest reviewedBlood pressures appear controlled, continue cardiac medicationsCreatinine appears stable, continue diuresis, monitor urine outputTolerating oral diet, has BM/BR, replete hypokalemiaNo fevers or leukocytosis, completed antibiotic course for UTIHemoglobin low but stable, no evidence of active bleedBlood glucose control with SSI and LantusEncourage PT/OT and out of bed as tolerated, plan for IPRDVT and GI prophylaxis with DAPT and PPI 12/31Neuro intact, avoid narcotics and sedatives, monitor for CO2 narcosisSats drops on RA, keep NC for goal sats in high 80s, ABG and BiPAP as needed, CXR reviewedBlood pressures appear controlled, continue cardiac medications, on BB, amiodarone and statinCreatinine remains stable, good urine output, continue diuresis per renalTolerating oral diet, bowel regimen, nutrition support, replete hypokalemiaNo fevers or leukocytosis, completed antibiotic course for UTIHemoglobin appears stable, no evidence of active bleedBlood glucose control with SSI and LantusEncourage PT/OT and out of bed as tolerated, plan for IPRDVT and GI prophylaxis with DAPT and PPI 01/01remains neuro intact, avoid narcotics and sedatives, monitor for CO2 narcosisSats well on NC, on home O2, goal sats in high 80s, has chronic CO2 retention, use BiPAP as needed, remove art line, ABG and CXR reviewedBP fairly controlled, adjust anti-HTN medications, increase BB doseCreatinine remains stable, good urine output, continue diuresis per renalTolerating oral diet, bowel regimen, replete hypokalemia and hypomagnesemiaNo fevers or leukocytosis, treated for UTI, currently off AbxHemoglobin appears stable, no evidence of active bleedingBlood glucose control with SSI and Lantus, will continueEncourage PT/OT and out of bed as tolerated, plan for IPR vs SNFDVT and GI prophylaxis with DAPT and PPI 01/02/2022 Patient seen and discussed during MDR this morning in CVICU room #2205. She is status post CABG. Patient has been existing diagnosis of COPD and obesity related hypoventilation syndrome. She was on BiPAP at night. Patient is being diuresed with Lasix. Ambulating with physical therapy. Vital signs are stable with a heart rate of 72 in sinus rhythm, blood pressure 148/83 mmHg, pulse ox 88% while on nasal cannula oxygen and respiratory rate of 23. Her latest blood gas shows a pH of 7.35, pCO2 of 69 mmHg, pO2 of 94 mmHg and bicarbonate of 38 mmol with base excess at 12.7. Hemoglobin is 8.1 g/dL and creatinine is 1.0 mg/dL. Patient has chronic respiratory acidosis with baseline hypercapnia. He is awake, interactive, following commands and moving all 4 extremities. Brenda Giles is a 76-year-old morbidly obese female with history of HTN, HL, IDDM, smoking, RONA on CPAP and home O2 as needed, macular degeneration, Crohn's disease on immunosuppressant medications, and chronic Afib s/p ablation and PPM (on Xarelto), who was admitted recently with heart failure symptoms. Patient underwent elective cardiac cath that showed severe multivessel coronary artery disease not suitable for percutaneous intervention. 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 She went for surgical revascularization today and preop JORDEN revealed severe mitral regurgitation. After discussing new findings with family, patient underwent MVR (31 Magna valve), CABG x 1 (ROBERTS-LAD), ILAA and pericardectomy on 12/19/2021. Has EF of 45%. Crystalloid 1 L, urine output 700, Cell Saver 700. She is a-paced at baseline. Surgery went well and patient was transferred to CVICU postop in a stable surgical condition. She is currentlyintubated on 2 mics of epinephrine, 2 mics of Levophed and insulin drip. CI 3.0,SvO2 in 60%s, CVP 15 and PAP in 60s. Patient was extubated in a timely fashion. She will be transferred out of the CVICU to 1 today. Patient is status post CABGHas pre-existing diagnosis of COPD and OHSTolerating nocturnal BiPAPPatient has been diuresed with LasixChest tube been discontinuedVital signs are stable with a heart rate of 72 and blood pressure 148/83 mmHgBaseline hypercapnia with chronic respiratory acidosisPatient has baseline hypercapnia with current pCO2 of 69 mmHg on ABG and is awake interactive following commands and moving all 4 extremitiesAllow permissive hypercapnia for chronic respiratory acidosis patient is ambulating with physical therapyMental status is stable and patient is alert orient [id number] stable at 8.1 g/dL, has acute blood loss anemia, does not meet transfusion threshold at this timeHer latest blood gas 7.35/69/94/38/12.7Avoid excessive oxygen delivery to prevent hypercapnia from Haldane effectCreatinine is within normal limitsHas acute blood loss anemiaHemoglobin stable. Does not meet transfusion threshold at this time. Follow CBC SCDs for DVT prophylaxis Kenton Gonzalez MD [facility].25 PMConsultants: cardiology, cardiovascular surgery, critical/intensivistCode status: full codePlan discussed with: nurse, interdisc care team, pharmacy/pharmacistCritical care time: Minutes: 40 at 0843 RPT #:[id number] OF REPORTPRProgress [id number]:16:00G.[id number] e for patient hokgUZXWYQHAGVFKZV5259-03-65M51:44:01 ACL 2022-01-02 07:18:00 [id number] U4Vn8RLha6MG G38/A2b5VYjGWq4QzeLdXbug2696-44-98R48:18:[address] [facility] ([facility])Rehab Progress NoteREPORT#:[id number] REPORT STATUS: SignedDATE:01/02/22 TIME: 07 PATIENT: KIAH GILES UNIT #: [id number]#: [id number] [address] [birth year] AGE: 76 SEX: F ATTEND: Jeffry More AUTHOR: Herberth Pantoja * ALL edits or amendments must be made on the electronic/computer document * SubjectiveChief complaint:rehab follow-upNADDoing fairSignificant generalized weakness, fatigueNo GOLD/N/V/D14 systems reviewed and negative except that mentioned above. Objective GeneralVS:Vital Signs: Date Time Temp Pulse Resp B/P B/P Pulse O2 O2 Flow FiO2 Mean Ox Delivery Rate 01/02 0403 [...] 166/58 98 91 PATIENT WEIGHT: Weight (lb): 264Weight (oz): 12.4Weight (kg): 120.100 Medications:Active Meds + DC'd Last 24 HrsMetoprolol Tartrate (LOPRESSOR) 25 MG Q12HR PO Acetazolamide (DIAMOX) 500 MG Q24H IV Furosemide (LASIX 40 mg/4 mL INJECTION) 40 MG DAILY IV Sterile Water (WATER FOR INJECTION) 5 ML ASDIR PRN IV Furosemide (LASIX 40 mg/4 mL INJECTION) 40 MG Q24H IV (DC) Potassium Chloride (POTASSIUM CHLORIDE 20MEQ TAB.ER) 40 MEQ DAILY PRN PRN PO Insulin Glargine (Lantus/Semglee) 30 UNIT DAILY SUBQ Insulin Glargine (Lantus/Semglee) 20 UNIT BEDTIME SUBQ Insulin Human Lispro (HUMALOG) 0 AC HS SUBQ Dextrose/Water (DEXTROSE 10% IN WATER) 125 ML ASDIR PRN IV (CKD) Dextrose/Water (DEXTROSE 10% IN WATER) 250 ML ASDIR PRN IV (CKD) Glucagon (GLUCAGON) 1 MG ASDIR PRN IM Amiodarone HCl (CORDARONE) 200 MG BID PO Sterile Water (WATER FOR INJECTION) 5 ML ASDIR PRN IV Sterile Water (WATER FOR INJECTION) 5 ML ASDIR PRN IV Sodium Chloride (SODIUM CHLORIDE) 4 ML RTBID NEB Melatonin (Melatonin) 3 MG BEDTIME PO Sodium Chloride (SODIUM CHLORIDE) 10 ML BID IV Sodium Chloride (SODIUM CHLORIDE) 10 ML ASDIR PRN IV Pantoprazole (PROTONIX) 40 MG DAILY PO Dexmedetomidine/Sodium Chloride (PRECEDEX 1000MCG/NS 250ML) 250 ML ASDIR IV Bisacodyl (DULCOLAX) 10 MG DAILY PRN PRN RECTAL Lactulose (LACTULOSE) 20 GM DAILY PRN PRN PO Magnesium Hydroxide (MILK OF MAGNESIA) 30 ML DAILY PRN PRN PO Aspirin (ASPIRIN) 81 MG DAILY PO Clopidogrel Bisulfate (Plavix) 75 MG DAILY PO Cyanocobalamin (Vitamin B-12 500 mcg tab) 500 MCG DAILY PO Ferrous Sulfate (FERROUS SULFATE) 325 MG DAILY PO Metolazone (metOLazone) 5 MG DAILY PO Polyethylene Glycol (MIRALAX) 17 GM DAILY PO Atorvastatin Calcium (LIPITOR) 40 MG 2100 PO Docusate Sodium (DOCUSATE SODIUM) 100 MG BID PO Metoprolol Tartrate (LOPRESSOR) 12.5 MG Q12HR PO (DC) Senna (SENOKOT) 17.6 MG BEDTIME PO Acetaminophen (TYLENOL) 650 MG Q4H PRN PRN PO Acetylcysteine (MUCOMYST FOR RT) 200 MG RTQ6H NEB Albuterol/Ipratropium (DUONEB) 3 ML RTQ6H NEB Bisacodyl (DULCOLAX) 10 MG ONCE PRN RECTAL Dopamine HCl/Dextrose (DOPamine 400MG/D5W 250ML) 250 ML ASDIR IV Milrinone Lactate/Dextrose (MILRINONE 20MG/D5W 100ML) 100 ML ASDIR IV (CKD) Vasopressin (VASOSTRICT 20 Unit/NS 100ML) 100 ML ASDIR IV (CKD) Acetaminophen (TYLENOL) 650 MG Q4H PRN PRN RECTAL Calcium Chloride (CALCIUM CHLORIDE) 1 GM ASDIR PRN IV Magnesium Sulfate (MAGNESIUM SULFATE 4GM/SWFI 100ML) 100 ML ASDIR PRN IV Magnesium Sulfate (MAGNESIUM SULFATE 2GM/SWFI 50ML) 50 ML ASDIR PRN IV Magnesium Sulfate/Dextrose (MAGNESIUM SULFATE 1GM/D5W 100ML) 100 ML ASDIR PRN IV Nitroglycerin/Dextrose (NITROGLYCERIN 50,000MCG/D5W 250ML) 250 ML ASDIR IV Norepinephrine Bitartrate (NOREPINEPHRINE 8 MG/NS 250 ML) 250 ML TITRATE IV Potassium Chloride (KCL 20MEQ/SWFI 100ML) 100 ML ASDIR PRN IV Sodium Bicarbonate (SODIUM BICARBONATE) 50 MEQ ASDIR PRN IV Ondansetron HCl (ZOFRAN) 4 MG Q6H PRN PRN IV Functional ProgressFunctional progress: Weightbearing: No Restriction Ambulation Distance: 30FT X2 25FT X2 Progression: Forward Assistance Level: Minimal Assistance Gait Deviations: Shuffling SHORT STEPS HEAD DOWN [facility] Mobility: No Document Pain/Education: No Advanced Progression: No Effects of Treatment: [place] of care decreased Function Improved Gait quality improved Cardio tolerance improved Post TX Precautions: In Chair Call Light in Reach Nursing Notified O2 on Pulse OX in Place Family/Sitter at Bedside Review Plan of Care: Yes PT charges: Gait Training [id number] Gait Cmt: Pt IN RECLINER UPON ARRIVAL. Pt HAS ON LYMPHADEMA GARMENTS TO REDUCE BLE SWELLING. Pt WEARS THIS AT HOME PRIOR TO ADMISSION 10HRS A DAY. Pt IS MIN A WITH INITIAL SIT TO STAND AND PROGRESSED TO SBA. FROM LOW LEVEL SURFACE, Pt NEEDS GUIDANCE. FROM HIGH LEVEL SURFACE, Pt IS ABLE TO PERFORM SIT TO STAND SBA. Pt AMBULATED 30FT X2 AND 25FT X2. NEED ENCOURAGEMENT AND REMINDERS TO KEEP THE WALKER CLOSE. Pt HAS A STEP TO GAIT PATTERN. Pt IS MIN A WITH GAIT MAINLY FOR PACING. Pt RETURNED TO THE RECLINER. ALL NEEDS ARE MET. FAMILY IN THE ROOM. EDUCATED Pt ON THE IMPORTANCE OF AMBULATING AND THE CONSEQUENCE OF NOT AMBULATING. If this is the patient's last treatment, this entry serves as the discharge summary: Y Start Time: 1030 Stop Time: 1100 Treatment Time: (minutes) 0:30 Completed by: Bea Mathew Conference/Supervising PT: Yes Supervising Therapist: Rey Mark Reviewed and Approved By: REY WADE PT . BED MOBILITY: No TRANSFERS: Yes Bed to/from chair: Minimal Assistance Sit to/from stand: Minimal Assistance Comments: MIN FROM LOW SURFACE (RECLINER) SBA FROM HIGH SURFACE (TRANSPORT CHAIR) Physical ExamGeneral appearance: alert, awakePsych: alert, oriented x 3HEENT: anicteric, mucosal membranes moistNeck: supple, no JVDCardiovascular: regular rate rhythm, no murmurRespiratory: diminished breath sounds (bases ), on oxygen (Hi flow O2 )Abdomen: bowel sounds present, non-distended, soft, non-tenderSkin: dry, intact, no rash, incisions D/IMusculoskeletal - general: Musculoskeletal - general: swelling (BLE +3), moving all ext AGNeuro/[employer]: alert, 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, normal speech, no motor deficits, no sensory deficits ResultsFindings/Data:Laboratory Tests: 01/02 01/02 01/01 01/01 8177 1002 4595 8584Blood Gas Puncture Site Art Line O2 Saturation [...] L Temperature (F) 98 O2 Delivery Device CannulaChemistry Sodium (134 - 147 mEq/L) 143 Potassium [...] mg/dL) 9.8 Magnesium (1.80 - 2.40 mg/dL) 2.02Hematology WBC (4.5 - 11.0 x10 3/uL) 9.1 [...] (Auto) (14.0 - 32.0 %) 5.1 L [place] % (Auto) (4.8 - 9.0 %) 9.4 H Eos % (Auto) (0.3 - 3.7 %) 1.5 Baso % (Auto) (0.0 - 2.0 %) 0.4 Neut # (Auto) (2.0 - 7.6 x10 3/uL) 7.28 Lymph # (Auto) (1.0 - 3.8 x10 3/uL) 0.46 L [place] # (Auto) (0.1 - 0.8 x10 3/uL) 0.85 H Eos # (Auto) (0.0 - 0.2 x10 3/uL) 0.14 Baso # (Auto) (0.0 - 0.2 x10 3/uL) 0.04 Abs Immat Gran (auto) (0.00 - 0.03 x10 3/uL) 0.31 H Add Manual Diff NO Immature Gran % (0.0 - 2.0 %) 3.4 H Nucleated RBC % (0 - 0 %) 1.5 H Nucleated RBCs # (Man) (0.0 - 0.1 x10 3/uL) 0.14 H 01/01 01/01 1212 0841 Chemistry POC Glucose (70 - 110 MG/DL) 191 H 95 Diagnosis, Assessment PlanFree Text A P:Critical illness myopathyStatus post CABG x1 Status post MVRGeneralized weaknessDeconditioningImpaired ADLs, mobility, gait, balance and endurance postoperative anemiaMorbid obesityCADHLD Crohn's diseaseChronic A. fibHypoxic respiratory failure Plan:Continue PT/OTOut of bed to chairWork on strength, bed mobility, transfers, gaitIncrease enduranceFall precautionsMonitor p.o. intake and nutritionStrict decubitus precautionsMonitor anemiaAdvance therapies as toleratedTolerating regular dietContinue diuresis- monitor strict I OsLasix drip discontinued. Started on IV Lasix and DiamoxWeigh patient dailyAdvance therapies as toleratedIRF consulted Total time was 33 minutes > 50% with patient performing physical examination, discussing O2 requirements, plan of care, goals, therapies, progress, medications, labs, IRF. All questions answeredRehab attestation:. at 1522 RPT #:[id number] OF REPORTPRProgress [id number]:18:00G.[id number] e for patient gwulQHWEXXPKRKWLNL6768-33-26T01:22:54 HC ACL 2022-01-01 20:34:00 [id number] BpAgZPPbZuB+ tEF3gt4AXWlwx5+ttWGFcw2C2649-55-43T09:34:[address] [facility] ([facility])Rehab Progress NoteREPORT#:[id number] REPORT STATUS: SignedDATE:01/01/22 TIME: 2033 PATIENT: KIAH GILES UNIT #: [id number]#: [id number] [address] [birth year] AGE: 76 SEX: F ATTEND: Jeffry More MDADM AUTHOR: Alicia Pantoja NP * ALL edits or amendments must be made on the electronic/computer document * SubjectiveChief complaint:rehab follow-upambulating with therapy around the unitvery fatigue appearanceSignificant generalized weakness, fatigueNo GOLD/N/V/D14 systems reviewed and negative except that mentioned above. Objective GeneralVS:Vital Signs: Date Time Temp Pulse Resp B/P B/P Pulse O2 O2 Flow FiO2 Mean Ox Delivery Rate 01/02 2000 [...] 01/01 0615 69 30 157/56 95 98 10/20 0600 72 28 161/58 99 87 10/20 0515 71 26 318/318 318 91 10/20 0445 97.3 71 28 145/51 86 90 10/20 0435 79 100 40 10/20 0430 97.5 73 23 153/59 96 100 10/20 0415 97.5 69 14 113/38 60 100 10/20 0401 114/53 77 10/20 0401 97.5 69 14 118/38 63 100 10/20 0400 97.5 69 14 121/42 66 100 10/20 0345 97.5 69 16 118/41 65 100 10/20 0315 97.3 69 16 126/43 70 100 10/20 0300 143/64 92 10/20 0300 97.2 69 15 147/53 86 100 10/20 0245 97.2 69 20 146/54 89 98 10/20 0230 97.3 75 25 150/54 90 90 10/20 0215 97.7 73 30 142/51 85 88 10/20 0200 136/78 99 10/20 0115 97.7 69 16 115/39 63 100 10/20 0100 136/65 93 10/20 0045 97.7 75 28 140/50 83 94 10/20 0015 97.7 71 22 121/44 68 100 10/20 0000 97.7 69 26 126/46 72 100 10/ 2330 97.7 74 34 145/58 89 96 10/ 2300 128/62 89 10/ 2300 97.9 71 22 145/52 84 96 / 2245 97.9 71 26 147/54 86 90 / 2230 97.9 69 20 130/49 75 100 10/ 2215 97.9 69 20 143/55 85 100 10/ 2200 131/57 82 10/ 2200 97.7 69 21 133/49 73 100 10/ 2145 97.7 69 20 142/50 79 100 10/ 2130 97.5 69 19 152/52 83 100 10/2114 97.5 70 28 145/53 82 100 10/2100 140/59 85 10/2100 97.5 69 29 151/54 87 98 10/2046 73 100 40 10/2044 97.5 73 31 153/53 85 94 PATIENT WEIGHT: Weight (lb): 266Weight (oz): 12.15Weight (kg): 121.000 Medications:Active Meds + DC'd Last 24 HrsMetoprolol Tartrate (LOPRESSOR) 25 MG Q12HR PO Acetazolamide (DIAMOX) 500 MG Q24H IV Furosemide (LASIX 40 mg/4 mL INJECTION) 40 MG DAILY IV Sterile Water (WATER FOR INJECTION) 5 ML ASDIR PRN IV Furosemide (LASIX 40 mg/4 mL INJECTION) 40 MG Q24H IV (DC) Potassium Chloride (POTASSIUM CHLORIDE 20MEQ TAB.ER) 40 MEQ DAILY PRN PRN PO Insulin Glargine (Lantus/Semglee) 30 UNIT DAILY SUBQ Insulin Glargine (Lantus/Semglee) 20 UNIT BEDTIME SUBQ Insulin Human Lispro (HUMALOG) 0 AC HS SUBQ Dextrose/Water (DEXTROSE 10% IN WATER) 125 ML ASDIR PRN IV (CKD) Dextrose/Water (DEXTROSE 10% IN WATER) 250 ML ASDIR PRN IV (CKD) Glucagon (GLUCAGON) 1 MG ASDIR PRN IM Amiodarone HCl (CORDARONE) 200 MG BID PO Sterile Water (WATER FOR INJECTION) 5 ML ASDIR PRN IV Sterile Water (WATER FOR INJECTION) 5 ML ASDIR PRN IV Sodium Chloride (SODIUM CHLORIDE) 4 ML RTBID NEB Melatonin (Melatonin) 3 MG BEDTIME PO Sodium Chloride (SODIUM CHLORIDE) 10 ML BID IV Sodium Chloride (SODIUM CHLORIDE) 10 ML ASDIR PRN IV Pantoprazole (PROTONIX) 40 MG DAILY PO Dexmedetomidine/Sodium Chloride (PRECEDEX 1000MCG/NS 250ML) 250 ML ASDIR IV Bisacodyl (DULCOLAX) 10 MG DAILY PRN PRN RECTAL Lactulose (LACTULOSE) 20 GM DAILY PRN PRN PO Magnesium Hydroxide (MILK OF MAGNESIA) 30 ML DAILY PRN PRN PO Aspirin (ASPIRIN) 81 MG DAILY PO Clopidogrel Bisulfate (Plavix) 75 MG DAILY PO Cyanocobalamin (Vitamin B-12 500 mcg tab) 500 MCG DAILY PO Ferrous Sulfate (FERROUS SULFATE) 325 MG DAILY PO Metolazone (metOLazone) 5 MG DAILY PO Polyethylene Glycol (MIRALAX) 17 GM DAILY PO Atorvastatin Calcium (LIPITOR) 40 MG 2100 PO Docusate Sodium (DOCUSATE SODIUM) 100 MG BID PO Metoprolol Tartrate (LOPRESSOR) 12.5 MG Q12HR PO (DC) Senna (SENOKOT) 17.6 MG BEDTIME PO Acetaminophen (TYLENOL) 650 MG Q4H PRN PRN PO Acetylcysteine (MUCOMYST FOR RT) 200 MG RTQ6H NEB Albuterol/Ipratropium (DUONEB) 3 ML RTQ6H NEB Bisacodyl (DULCOLAX) 10 MG ONCE PRN RECTAL Dopamine HCl/Dextrose (DOPamine 400MG/D5W 250ML) 250 ML ASDIR IV Milrinone Lactate/Dextrose (MILRINONE 20MG/D5W 100ML) 100 ML ASDIR IV (CKD) Vasopressin (VASOSTRICT 20 Unit/NS 100ML) 100 ML ASDIR IV (CKD) Acetaminophen (TYLENOL) 650 MG Q4H PRN PRN RECTAL Calcium Chloride (CALCIUM CHLORIDE) 1 GM ASDIR PRN IV Magnesium Sulfate (MAGNESIUM SULFATE 4GM/SWFI 100ML) 100 ML ASDIR PRN IV Magnesium Sulfate (MAGNESIUM SULFATE 2GM/SWFI 50ML) 50 ML ASDIR PRN IV Magnesium Sulfate/Dextrose (MAGNESIUM SULFATE 1GM/D5W 100ML) 100 ML ASDIR PRN IV Nitroglycerin/Dextrose (NITROGLYCERIN 50,000MCG/D5W 250ML) 250 ML ASDIR IV Norepinephrine Bitartrate (NOREPINEPHRINE 8 MG/NS 250 ML) 250 ML TITRATE IV Potassium Chloride (KCL 20MEQ/SWFI 100ML) 100 ML ASDIR PRN IV Sodium Bicarbonate (SODIUM BICARBONATE) 50 MEQ ASDIR PRN IV Ondansetron HCl (ZOFRAN) 4 MG Q6H PRN PRN IV Physical ExamGeneral appearance: obese, alert, awake, oriented, no acute distressPsych: alert, oriented x 3HEENT: anicteric, mucosal membranes moistNeck: supple, no JVDCardiovascular: regular rate rhythm, no murmurRespiratory: diminished breath sounds (bases ), on oxygen (Hi flow O2 )Abdomen: bowel sounds present, non-distended, soft, non-tenderSkin: dry, intact, no rash, incisions D/IMusculoskeletal - general: Musculoskeletal - general: swelling (BLE +3), moving all ext AGNeuro/[employer]: alert, 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, normal speech, no motor deficits, no sensory deficits ResultsFindings/Data:Laboratory Tests: 01/01 01/01 01/01 01/01 2059 1212 0841 0330Chemistry Sodium (134 - 147 mEq/L) 141 Potassium [...] mg/dL) 9.5 Magnesium (1.80 - 2.40 mg/dL) 1.92Hematology WBC (4.5 - 11.0 x10 3/uL) 9.4 [...] (Auto) (14.0 - 32.0 %) 6.1 L [place] % (Auto) (4.8 - 9.0 %) 7.0 Eos % (Auto) (0.3 - 3.7 %) 1.4 Baso % (Auto) (0.0 - 2.0 %) 0.2 Neut # (Auto) (2.0 - 7.6 x10 3/uL) 7.84 H Lymph # (Auto) (1.0 - 3.8 x10 3/uL) 0.57 L [place] # (Auto) (0.1 - 0.8 x10 3/uL) 0.66 Eos # (Auto) (0.0 - 0.2 x10 3/uL) 0.13 Baso # (Auto) (0.0 - 0.2 x10 3/uL) 0.02 Abs Immat Gran (auto) (0.00 - 0.03 x10 3/uL) 0.17 H Add Manual Diff NO Immature Gran % (0.0 - 2.0 %) 1.8 Nucleated RBC % (0 - 0 %) 0.7 H Nucleated RBCs # (Man) (0.0 - 0.1 x10 3/uL) 0.07 01/01 0329 Blood Gas Puncture Site Art [...] (70 - 110 MG/DL) 90 Diagnosis, Assessment PlanFree Text A P:Critical illness myopathyStatus post CABG x1 Status post MVRGeneralized weaknessDeconditioningImpaired ADLs, mobility, gait, balance and endurance postoperative anemiaMorbid obesityCADHLD Crohn's diseaseChronic A. fibHypoxic respiratory failure Plan:Continue PT/OTOut of bed to chairWork on strength, bed mobility, transfers, gaitIncrease enduranceFall precautionsMonitor p.o. intake and nutritionStrict decubitus precautionsMonitor anemiaAdvance therapies as toleratedTolerating regular dietContinue diuresis- monitor strict I OsLasix drip discontinued. Started on IV Lasix and DiamoxWeigh patient dailyAdvance therapies as tolerated CLOF with therapyPt IN RECLINER UPON ARRIVAL. Pt HAS ON LYMPHEDEMA GARMENTS. Pt IS SBA WITH SIT TO STAND AND GAIT. Pt AMBULATED 20FT X6 WITH A RW. WC FOLLOWED FOR SAFETY. 5 SITTING BREAKS TAKEN DUE TO SOB. LOW ACTIVITY TOLERANCE. EDUCATED Pt ON PURSED LIP BREATHING. O2 SAT REMAINED 88-92% DURING GAIT. Pt IS SELF LIMITING AND NEEDS LOTS OF ENCOURAGEMENT. Will eventually need IRF when medically ready. CLOF with therapyAmbulation 20 feet, 5 feet, 15 feet x 2 moderate assistance with rolling walker,shuffling gait short steps head down FF: 30mins: Time spent with daughter discussing the following: PLF/Home environment/CLOF/decrease motivation/Pt has poor endurance. Monitoring pt progress for disposition recommendations-Discussed the 3 options Home/PT, SNF, IPR. We are currently on wanting to take the pt to IPR. Will need insurance approval. Educated on IPR environment, expectation, and goals. Further discussedpt Discharge POC after leaving acute setting. Answered all questions TT: 66 mins, Time spent reviewing chart, notes, labs, meds, therapy notes, discussed medical mgt, and rehab poc, goals. Discussed Pt's poc with CM, CVS team, nursing, and therapy team Rehab attestation:Face to face exam completed. Treatment plan discussed with patient. at 2043 [facility] #:[id number] OF REPORTPRProgress [id number]:34:00G.[id number] e for patient frenEPJDJNDGYNFXXF7201-87-82X57:43:35 HC ACL 2022-01-01 12:07:00 [id number]+XxMx0DaIQUd JohnodsqjTdn PDu96KLg799gywHtOyYx71/92818-58-37B27:07:[address] [facility] ([facility])Hospitalist Progress NoteREPORT#:[id number] REPORT STATUS: SignedDATE:01/01/22 TIME: 1207 PATIENT: KIAH GILES UNIT #: [id number]#: [id number] [address] [birth year] AGE: 76 SEX: F ATTEND: Jeffry More AUTHOR: Meryl Rosa MD * ALL edits or amendments must be made on the electronic/computer document * SubjectiveChief complaint:she improve . less sob and edema acute respiratory failure --post CABGHPI: 76 years old female with PMH of macular degeneration, obesity, obstructive sleepapnea (CPAP at home), former smoker, hypertension, hyperlipidemia, diabetes, Crohn's disease, chronic atrial fibrillation status post 3 ablations in the past(on Xarelto), pacemaker placement is admitted to the hospital post cardiac cath . she need CABG . she had sob for years . sob got worse . she was admitted to the hospital in [place] . she had cath 3 weeks ago . she was reffered to here for stents placement . she had cath yesterday . it show multiple vessels CAD . she is recommend CABG . she still feel sob . no cp no nausea no vomiting no fever no abdominal pain no dizziness . Review of SystemsConstitutional:Reports: fatigue, generalized weakness. Denies: fever, lethargy. Respiratory:Reports: DOUGLASS (dyspnea on exertion), SOB. Denies: wheezing. Cardiovascular:Reports: DOUGLASS (dyspnea on exertion), edema. Denies: chest pain. GI:Denies: abdominal pain, nausea, vomiting. Neuro:Denies: dizziness. Objective GeneralVS/I O:Vital Signs: Date Time Temp Pulse Resp B/P B/P Pulse O2 O2 Flow FiO2 Mean Ox Delivery Rate 01/01 806 36.6 01/01 0800 98 Nasal 3 cannula 01/01 0736 71 26 169/58 100 93 01/01 0730 71 27 166/58 98 91 01/01 0715 74 28 157/56 94 94 10/20 0701 157/71 102 10/20 0701 70 26 164/57 97 96 10/20 0700 69 27 164/58 98 96 10/20 0645 76 29 161/58 96 89 10/20 0615 69 30 157/56 95 98 10/20 0600 72 28 161/58 99 87 10/20 0515 71 26 318/318 318 91 10/20 0445 36.3 71 28 145/51 86 90 10/20 0435 79 100 40 10/20 0430 36.4 [...] 0230 36.3 75 25 150/54 90 90 10/20 0215 36.5 73 30 142/51 85 88 10/20 0200 136/78 99 10/20 0115 36.5 69 16 115/39 63 100 10/20 0100 136/65 93 10/20 0045 36.5 75 28 140/50 83 94 10/20 0015 36.5 71 22 121/44 68 100 10/20 0000 36.5 69 26 126/46 72 100 10/19 2330 36.5 74 34 145/58 89 96 10/19 2300 128/62 89 10/19 2300 36.6 71 22 145/52 84 96 10/19 2245 36.6 71 26 147/54 86 90 10/19 2230 36.6 69 20 130/49 75 100 10/19 2215 36.6 69 20 143/55 85 100 10/19 2200 131/57 82 10/19 2200 36.5 69 21 133/49 73 100 10/19 2145 36.5 69 20 142/50 79 100 10/19 2130 36.4 69 19 152/52 83 100 10/19 2115 36.4 70 28 145/53 82 100 10/19 2101 140/59 85 12/31 2100 36.4 69 [...] Urine 850 1350 PATIENT WEIGHT: Weight (lb): 266Weight (oz): 12.15Weight (kg): 121.000 Medications:Active Meds + DC'd Last 24 HrsAcetazolamide (DIAMOX) 500 MG Q24H IV Furosemide (LASIX 40 mg/4 mL INJECTION) 40 MG DAILY IV Sterile Water (WATER FOR INJECTION) 5 ML ASDIR PRN IV Potassium Chloride (POTASSIUM CHLORIDE 20MEQ TAB.ER) 40 MEQ ONCE ONE PO (DC) Furosemide (LASIX 40 mg/4 mL INJECTION) 40 MG Q24H IV (DC) Potassium Chloride (POTASSIUM CHLORIDE 20MEQ TAB.ER) 40 MEQ DAILY PRN PRN PO Insulin Glargine (Lantus/Semglee) 30 UNIT DAILY SUBQ Insulin Glargine (Lantus/Semglee) 20 UNIT BEDTIME SUBQ Insulin Human Lispro (HUMALOG) 0 AC HS SUBQ Dextrose/Water (DEXTROSE 10% IN WATER) 125 ML ASDIR PRN IV (CKD) Dextrose/Water (DEXTROSE 10% IN WATER) 250 ML ASDIR PRN IV (CKD) Glucagon (GLUCAGON) 1 MG ASDIR PRN IM Amiodarone HCl (CORDARONE) 200 MG BID PO Sterile Water (WATER FOR INJECTION) 5 ML ASDIR PRN IV Sterile Water (WATER FOR INJECTION) 5 ML ASDIR PRN IV Sodium Chloride (SODIUM CHLORIDE) 4 ML RTBID NEB Melatonin (Melatonin) 3 MG BEDTIME PO Sodium Chloride (SODIUM CHLORIDE) 10 ML BID IV Sodium Chloride (SODIUM CHLORIDE) 10 ML ASDIR PRN IV Pantoprazole (PROTONIX) 40 MG DAILY PO Dexmedetomidine/Sodium Chloride (PRECEDEX 1000MCG/NS 250ML) 250 ML ASDIR IV Bisacodyl (DULCOLAX) 10 MG DAILY PRN PRN RECTAL Lactulose (LACTULOSE) 20 GM DAILY PRN PRN PO Magnesium Hydroxide (MILK OF MAGNESIA) 30 ML DAILY PRN PRN PO Aspirin (ASPIRIN) 81 MG DAILY PO Clopidogrel Bisulfate (Plavix) 75 MG DAILY PO Cyanocobalamin (Vitamin B-12 500 mcg tab) 500 MCG DAILY PO Ferrous Sulfate (FERROUS SULFATE) 325 MG DAILY PO Metolazone (metOLazone) 5 MG DAILY PO Polyethylene Glycol (MIRALAX) 17 GM DAILY PO Atorvastatin Calcium (LIPITOR) 40 MG 2100 PO Docusate Sodium (DOCUSATE SODIUM) 100 MG BID PO Metoprolol Tartrate (LOPRESSOR) 12.5 MG Q12HR PO Senna (SENOKOT) 17.6 MG BEDTIME PO Acetaminophen (TYLENOL) 650 MG Q4H PRN PRN PO Acetylcysteine (MUCOMYST FOR RT) 200 MG RTQ6H NEB Albuterol/Ipratropium (DUONEB) 3 ML RTQ6H NEB Bisacodyl (DULCOLAX) 10 MG ONCE PRN RECTAL Dopamine HCl/Dextrose (DOPamine 400MG/D5W 250ML) 250 ML ASDIR IV Milrinone Lactate/Dextrose (MILRINONE 20MG/D5W 100ML) 100 ML ASDIR IV (CKD) Vasopressin (VASOSTRICT 20 Unit/NS 100ML) 100 ML ASDIR IV (CKD) Acetaminophen (TYLENOL) 650 MG Q4H PRN PRN RECTAL Calcium Chloride (CALCIUM CHLORIDE) 1 GM ASDIR PRN IV Dextrose/Water (DEXTROSE 10% IN WATER) 125 ML ASDIR PRN IV (DC) Dextrose/Water (DEXTROSE 10% IN WATER) 250 ML ASDIR PRN IV (DC) Glucagon (GLUCAGON) 1 MG ASDIR PRN IM (DC) Magnesium Sulfate (MAGNESIUM SULFATE 4GM/SWFI 100ML) 100 ML ASDIR PRN IV Magnesium Sulfate (MAGNESIUM SULFATE 2GM/SWFI 50ML) 50 ML ASDIR PRN IV Magnesium Sulfate/Dextrose (MAGNESIUM SULFATE 1GM/D5W 100ML) 100 ML ASDIR PRN IV Nitroglycerin/Dextrose (NITROGLYCERIN 50,000MCG/D5W 250ML) 250 ML ASDIR IV Norepinephrine Bitartrate (NOREPINEPHRINE 8 MG/NS 250 ML) 250 ML TITRATE IV Potassium Chloride (KCL 20MEQ/SWFI 100ML) 100 ML ASDIR PRN IV Sodium Bicarbonate (SODIUM BICARBONATE) 50 MEQ ASDIR PRN IV Ondansetron HCl (ZOFRAN) 4 MG Q6H PRN PRN IV Physical ExamGeneral appearance: alert, awake, orientedHead/Eyes: atraumatic, normal conjunctiva/sclera, normal eyelids/periorb., normocephalicNeck: full range of motion, non-tender, no JVDCardiovascular: normal heart sounds, regular rate rhythmRespiratory: decreased breath sounds, clear to auscultationAbdomen: non-tender, normal bowel sounds, soft, no distentionExtremities: edema, moves all, no calf tendernessNeuro/[employer]: alert, 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Skin: dry, intact ResultsFindings/Data:Laboratory Tests 01/01 Blood Gas Puncture Site Art [...] MMOL/L) 38.8 *H 36.9 *H 35.9 *H ABG Total CO2 40.8 38.8 37.7 ABG Base Excess (-4.0 - 4.0 MMOL/L) 13.5 H 11.9 H 11.0 H ABG Hematocrit (33.0 - 45.0 %) 24 L 26 L 27 L ABG Hemoglobin (11.0 - 15.0 G/DL) 8.1 L 8.7 L 9.3 L Martin Test N/A N/A Sodium (134 - 147 MEQ/L) 143 143 142 Potassium (3.4 - 5.0 MEQ/L) 3.4 3.1 L 3.5 Chloride (100 - 108 MEQ/L) 93 L 96 L 95 L Ionized Calcium (1.12 - 1.32 MMOL/L) 1.33 H 1.33 H 1.33 H Lactic Acid (0.9 - [...] - 1.0 mg/dL) 1.2 H 1.1 H 0.9 Glomerular Filtr Rate (70 - 80) 53.6 [...] (Auto) (14.0 - 32.0 %) 6.1 L Colquitt % (Auto) (4.8 - 9.0 %) 7.0 Eos % (Auto) (0.3 - 3.7 %) 1.4 Baso % (Auto) (0.0 - 2.0 %) 0.2 Neut # (Auto) (2.0 - 7.6 x10 3/uL) 7.84 H Lymph # (Auto) (1.0 - 3.8 x10 3/uL) 0.57 L [place] # (Auto) (0.1 - 0.8 x10 3/uL) 0.66 Eos # (Auto) (0.0 - 0.2 x10 3/uL) 0.13 Baso # (Auto) (0.0 - 0.2 x10 3/uL) 0.02 Abs Immat Gran (auto) (0.00 - 0.03 x10 3/uL) 0.17 H Add Manual Diff NO Immature Gran % (0.0 - 2.0 %) 1.8 Nucleated RBC % (0 - 0 %) 0.7 H Nucleated RBCs # (Man) (0.0 - 0.1 x10 3/uL) 0.07 Radiology data:Recent Impressions:RADIOLOGY - XR CHEST 1 V 01/01 0642 Report Impression - Status: SIGNED Entered: 01/01/2022 0702 IMPRESSION: Stable exam. Bilateral pulmonary opacities likely combination of airspace disease and atelectasis. Bilateral pleural effusions. Stable postoperative cardiomediastinal silhouette. Impression By: Catherine Carlisle M.D. Treatment Prophylaxis Treatment ProphylaxisDrain(s)/tube(s): Drain(s)/tube(s): chest (x3) Diagnosis, Assessment PlanConsultants: cardiology, cardiovascular surgery Free Text DxA P NotesFree text DxA P notes: 76 years old female with PMH of macular degeneration, obesity, obstructive sleepapnea (CPAP at home), former smoker, hypertension, hyperlipidemia, diabetes, Crohn's disease, chronic atrial fibrillation status post 3 ablations in the past(on Xarelto), pacemaker placement CAD -- multiple vesssels HTNDM HLDCrohn's diseasechronic atrial fibrillation status post 3 ablationsmacular degenerationobesityobstructive sleep apneaacute respiratory failure --post surgery severe mitral valve [...] MVR (31 Magna valve), CABG x 1 (ROBERTS-LAD), ILAA and pericardectomy -- she remain intubated on the vent -- chest tube are in place -on levophed and epinephrine drip -- monitor in CCU 12/20- she was extubated --on bipap now -- NPO --off Levophed/epinephrine, continue vasopressin, inotropes with milrinone, -- chest tube remain in place -- she is stable post surgery 12/21-- she is on high flow O2 -- edema --lasix --chest tube in place --- she is hemodynamic stable -- continue monitor in CCU 12/22- she remain on high O2 CXR show worsening pulmonary venous vascular congestion. --lasix iv tid -- chest tube are [...] drip as nurse -- continue supportive care 12/27On lasix and insulin drips. Back on lantus dose BID, trend glucose.Continue PT/OT.12/28Increase lantus BID. 12/29-- she remain on bipap [...] continue PT/OT -- rehab placement as rehab at 1708 RPT #:[id number] OF REPORTPRProgress [id number]:07:00G.[id number] e for patient [id number]:08:46 ACL 2022-01-01 11:43:00 [id number] TgwPz7QfmkCg t8ndamGrkOob7aMD6xCPOa/[id number]:43:[address] [facility] ([facility])Nephrology Progress NoteREPORT#:[id number] REPORT STATUS: SignedDATE:01/01/22 TIME: 1143 PATIENT: KIAH GILES UNIT #: [id number]#: [id number] [address] [birth year] AGE: 76 SEX: F ATTEND: Jeffry More AUTHOR: Suki Fuchs MD * ALL edits or amendments must be made on the electronic/computer document * SubjectiveChief complaint:chest painHPI:This is a 76-year-old female who has past medical history of hypertension, diabetes, coronary artery disease, atrial fibrillation who presented with worsening shortness of breath and on further work-up was 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 She was withnormal kidney function prior to surgery and after her surgery she began to develop oliguria. Her procedure was done without any complications but after her surgery she did require pressor support for hypotension and she was intubated for respiratory acidosis and hypoxia and she was treated with vancomycin for infection treatment. When she was seen this morning she continued to have hypotension and her heart rate was paced by her permanent pacemaker and her urine output was 20 to 30/h. Her family at bedside denied anyhistory of kidney disease, kidney stone, chronic NSAID use or any urinary complaints. They also endorse that her blood pressure and diabetes were mostly controlled. 01/01Today she was comfortable, sitting in chair but said she feels dizzy on standing up. Objective GeneralVS/I O:Vital Signs: Date Time Temp Pulse Resp B/P B/P Pulse O2 O2 Flow FiO2 Mean Ox Delivery Rate 01/01 08 36.6 01/01 0800 98 Nasal 3 cannula 01/01 0736 71 26 169/58 100 93 01/01 0730 71 27 166/58 98 91 01/01 0715 74 28 157/56 94 94 01/01 0701 157/71 102 10/20 0701 70 26 164/57 97 96 10/20 0700 69 27 164/58 98 96 10/20 0645 76 29 161/58 96 89 10/20 0615 69 30 157/56 95 98 10/20 0600 72 28 161/58 99 87 10/20 0515 71 26 318/318 318 91 10/20 0445 36.3 71 28 145/51 86 90 10/20 0435 79 100 40 10/20 0430 36.4 [...] 0230 36.3 75 25 150/54 90 90 10/20 0215 36.5 73 30 142/51 85 88 10/20 0200 136/78 99 10/20 0115 36.5 69 16 115/39 63 100 10/20 0100 136/65 93 10/20 0045 36.5 75 28 140/50 83 94 10/20 0015 36.5 71 22 121/44 68 100 10/20 0000 36.5 69 26 126/46 72 100 10/19 2330 36.5 74 34 145/58 89 96 10/19 2300 128/62 89 10/19 2300 36.6 71 22 145/52 84 96 10/19 2245 36.6 71 26 147/54 86 90 10/19 2230 36.6 69 20 130/49 75 100 10/19 2215 36.6 69 20 143/55 85 100 10/19 2200 131/57 82 10/19 2200 36.5 69 21 133/49 73 100 10/19 2145 36.5 69 20 142/50 79 100 10/19 2130 36.4 69 19 152/52 83 100 10/19 2115 36.4 70 28 145/53 82 100 10/19 2101 140/59 85 10/19 2101 36.4 69 29 151/54 87 98 [...] Urine 850 1350 PATIENT WEIGHT: Weight (lb): 266Weight (oz): 12.15Weight (kg): 121.000 Physical ExamGeneral appearance: alert, awake, orientedHead/eyes: atraumatic, normocephalicENT: moist mucous membranes, normal noseNeck: no JVD, no lymphadenopathyCardiovascular: normal heart sounds, regular rate and rhythmRespiratory: aerating well, clear to auscultationAbdomen: soft, no pulsatile massGenitourinary: urinary catheterExtremities: no gangrene, no swelling Treatment Prophylaxis Treatment ProphylaxisDrain(s)/tube(s): Drain(s)/tube(s): chest (x3) Diagnosis, Assessment PlanFree Text A P:This is a 76-year-old female known to have hypertension, diabetes, atrial fibrillation, s/p permanent pacemaker and history of ablation presenting with shortness of breath and 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 Nephrology is following for: 1. Acute kidney injury: Most likely it is prerenal (cardiorenal), she has been hypotensive postoperatively with requirement for pressor support and inotropic support. Plan is to increase inotropic support or pressor support to bring meanarterial pressure above 65 and give albumin with Lasix to see if it helps him diurese. If he does not respond to higher dose Lasix with albumin then I will consider starting him on CRRT to prevent hyper volemia. 2. Hypervolemia: Plan is to give Lasix and if he does not respond to start him on CRRT for extra fluid removal. 3. His electrolytes were all reviewed to be in normal range plan was to monitorand replace as needed. 4. He was receiving vancomycin so plan was to monitor vancomycin trough levels to prevent ATN. 5/ Metabolic alkalosis secondary to diuretics : Plan to give acetazoleamide if worsening. . Acute kidney injury: Resolved, she is responding to lasix. 2. Hypervolemia: Plan to continue lasix as tolerated.Today she was on low dose twice daily lasix. 3. Hypokalemia/hypomagnesemia:secondary to diuretics, plan was to monitor and replace as needed. 4. She was receiving vancomycin so plan was to monitor vancomycin trough levelsto prevent ATN. 5/ Metabolic alkalosis secondary to diuretics : Plan to give acetazoleamide and monitor closely. 12/28 1. Acute kidney injury: Resolved, she is responding to lasix. 2. Hypervolemia: Plan to continue lasix as tolerated.Today she was on low dose twice daily lasix. 3. Hypokalemia/hypomagnesemia:secondary to diuretics, plan was to monitor and replace as needed. 4. She was receiving vancomycin so plan was to monitor vancomycin trough levelsto prevent ATN. 5/ Metabolic alkalosis secondary to diuretics : Plan to give acetazoleamide and monitor closely. 12/28 1. Acute kidney injury: Resolved, she is responding to lasix. 2. Hypervolemia: Plan to continue lasix as tolerated.Today she was on low dose twice daily lasix. 3. Hypokalemia/hypomagnesemia:secondary to diuretics, plan was to monitor and replace as needed. 4. She was receiving vancomycin so plan was to monitor vancomycin trough levelsto prevent ATN. 5/ Metabolic alkalosis secondary to diuretics : Plan to give acetazoleamide and monitor closely. 12/29 1. Acute kidney injury: Resolved, she is responding to lasix. 2. Hypervolemia: Plan to continue lasix as tolerated.Today she was on low dose twice daily lasix. 3. Hypokalemia/hypomagnesemia:secondary to diuretics, plan was to monitor and replace as needed. 4. She was receiving vancomycin so plan was to monitor vancomycin trough levelsto prevent ATN. 5/ Metabolic alkalosis secondary to diuretics : Plan to give acetazoleamide andmonitor closely. 12/30 1. Acute kidney injury: Resolved, she is responding to lasix. 2. Hypervolemia: Plan to continue lasix as tolerated.Today she was on low dose twice daily lasix. 3. Hypokalemia/hypomagnesemia:secondary to diuretics, plan was to monitor and replace as needed. 4. Metabolic alkalosis secondary to diuretics : Plan to continue acetazoleamide and monitor closely. 12/31 1. Acute kidney injury: Resolved, she is responding to lasix. 2. Hypervolemia: Plan to continue lasix as tolerated.Today she was on low dose twice daily lasix. 3. Hypokalemia/hypomagnesemia:secondary to diuretics, plan was to monitor and replace as needed. 4. Metabolic alkalosis secondary to diuretics :Improved so acetazoleamide reduced. 01/01 1. Acute kidney injury: Resolved, she is responding to lasix. 2. Hypervolemia: Plan to continue lasix as tolerated.Today she was on low dose daily lasix with metolazone. 3. Hypokalemia/hypomagnesemia:secondary to diuretics, plan was to monitor and replace as needed. 4. Metabolic alkalosis secondary to diuretics :Acetazoleamide keeping stable.Plan to continue same. 5/ Syncope : Most likely secondary to deconditioning but plan to hold diuretics if she is orthostatic. Consultants: cardiology, cardiovascular surgery at [address] [facility] #:[id number] OF REPORTPRProgress [id number]:43:00G.[id number] e for patient [id number]:11:47 [facility] 2022-01-01 09:31:00 [id number] diNMidRy1VNU [id number]:31:[address] [facility] ([facility])Cardiology Progress NoteREPORT#:[id number] REPORT STATUS: SignedDATE:01/01/22 TIME: 09 PATIENT: KIAH GILES UNIT #: [id number]#: [id number] ROOM/BED: 3363-1DOB: [birth year] AGE: 76 SEX: F ATTEND: Jeffry More MDADM AUTHOR: Isabella Clemens * ALL edits or amendments must be made on the electronic/computer document * SubjectiveComments:OOB to chair, awake and alert. Hemodynamically stable. Objective GeneralVS/I O:24 hour I O ending at 0700: 01/01 0700 12/31 1900 Intake Total 400 960 Output Total 850 1350 Balance -450 -390 Intake, Oral 400 960 Output, Urine 850 1350 Vital Signs: Date Time Temp Pulse Resp B/P B/P Pulse O2 O2 Flow FiO2 Mean Ox Delivery Rate 01/01 0806 [...] 0430 36.4 73 23 153/59 96 100 01/01 0415 36.4 69 14 113/38 60 100 01/01 0401 114/53 77 10 0401 36.4 69 14 118/38 63 100 01/01 0400 36.4 69 14 121/42 66 100 01/01 0345 36.4 69 16 118/41 65 100 01/01 0315 36.3 69 16 126/43 70 100 01/01 0300 143/64 92 01/01 0300 36.2 69 15 147/53 86 100 01/01 0245 36.2 69 20 146/54 89 98 01/01 0230 36.3 75 25 150/54 90 90 01/01 0215 36.5 73 30 142/51 85 88 01/01 0200 136/78 99 01/01 0115 36.5 69 16 115/39 63 100 / 0100 136/65 93 01/01 0045 36.5 75 [...] 98 12/31 2046 73 100 40 12/31 204 36.4 73 31 153/53 85 94 12/31 [...] 140/45 73 91 PATIENT WEIGHT: Weight (lb): 266Weight (oz): 12.15Weight (kg): 121.000 Medications:Active Meds + DC'd Last 24 HrsAcetazolamide (DIAMOX) 500 MG Q24H IV Furosemide (LASIX 40 mg/4 mL INJECTION) 40 MG DAILY IV Sterile Water (WATER FOR INJECTION) 5 ML ASDIR PRN IV Potassium Chloride (POTASSIUM CHLORIDE 20MEQ TAB.ER) 40 MEQ ONCE ONE PO (DC) Furosemide (LASIX 40 mg/4 mL INJECTION) 40 MG Q24H IV (DC) Potassium Chloride (POTASSIUM CHLORIDE 20MEQ TAB.ER) 40 MEQ DAILY PRN PRN PO Insulin Glargine (Lantus/Semglee) 30 UNIT DAILY SUBQ Insulin Glargine (Lantus/Semglee) 20 UNIT BEDTIME SUBQ Insulin Human Lispro (HUMALOG) 0 AC HS SUBQ Dextrose/Water (DEXTROSE 10% IN WATER) 125 ML ASDIR PRN IV (CKD) Dextrose/Water (DEXTROSE 10% IN WATER) 250 ML ASDIR PRN IV (CKD) Glucagon (GLUCAGON) 1 MG ASDIR PRN IM Amiodarone HCl (CORDARONE) 200 MG BID PO Furosemide (LASIX 40 mg/4 mL INJECTION) 40 MG BID 9A 5P IV (DC) Acetazolamide (DIAMOX) 500 MG Q12HR IV (DC) Sterile Water (WATER FOR INJECTION) 5 ML ASDIR PRN IV Sterile Water (WATER FOR INJECTION) 5 ML ASDIR PRN IV Sodium Chloride (SODIUM CHLORIDE) 4 ML RTBID NEB Melatonin (Melatonin) 3 MG BEDTIME PO Sodium Chloride (SODIUM CHLORIDE) 10 ML BID IV Sodium Chloride (SODIUM CHLORIDE) 10 ML ASDIR PRN IV Pantoprazole (PROTONIX) 40 MG DAILY PO Dexmedetomidine/Sodium Chloride (PRECEDEX 1000MCG/NS 250ML) 250 ML ASDIR IV Bisacodyl (DULCOLAX) 10 MG DAILY PRN PRN RECTAL Lactulose (LACTULOSE) 20 GM DAILY PRN PRN PO Magnesium Hydroxide (MILK OF MAGNESIA) 30 ML DAILY PRN PRN PO Aspirin (ASPIRIN) 81 MG DAILY PO Clopidogrel Bisulfate (Plavix) 75 MG DAILY PO Cyanocobalamin (Vitamin B-12 500 mcg tab) 500 MCG DAILY PO Ferrous Sulfate (FERROUS SULFATE) 325 MG DAILY PO Metolazone (metOLazone) 5 MG DAILY PO Polyethylene [...] (DC) Sodium Chloride (SODIUM CHLORIDE 0.9%) 99 MLAcetylcysteine (MUCOMYST FOR RT) 200 MG RTQ6H NEB Albuterol/Ipratropium (DUONEB) 3 ML RTQ6H NEB Bisacodyl (DULCOLAX) 10 MG ONCE PRN RECTAL Dopamine HCl/Dextrose (DOPamine 400MG/D5W 250ML) 250 ML ASDIR IV Milrinone Lactate/Dextrose (MILRINONE 20MG/D5W 100ML) 100 ML ASDIR IV (CKD) Vasopressin (VASOSTRICT 20 Unit/NS 100ML) 100 ML ASDIR IV (CKD) Acetaminophen (TYLENOL) 650 MG Q4H PRN PRN RECTAL Calcium Chloride (CALCIUM CHLORIDE) 1 GM ASDIR PRN IV Dextrose/Water (DEXTROSE 10% IN WATER) 125 ML ASDIR PRN IV (DC) Dextrose/Water (DEXTROSE 10% IN WATER) 250 ML ASDIR PRN IV (DC) Glucagon (GLUCAGON) 1 MG ASDIR PRN IM (DC) Magnesium Sulfate (MAGNESIUM SULFATE 4GM/SWFI 100ML) 100 ML ASDIR PRN IV Magnesium Sulfate (MAGNESIUM SULFATE 2GM/SWFI 50ML) 50 ML ASDIR PRN IV Magnesium Sulfate/Dextrose (MAGNESIUM SULFATE 1GM/D5W 100ML) 100 ML ASDIR PRN IV Nitroglycerin/Dextrose (NITROGLYCERIN 50,000MCG/D5W 250ML) 250 ML ASDIR IV Norepinephrine Bitartrate (NOREPINEPHRINE 8 MG/NS 250 ML) 250 ML TITRATE IV Potassium Chloride (KCL 20MEQ/SWFI 100ML) 100 ML ASDIR PRN IV Sodium Bicarbonate (SODIUM BICARBONATE) 50 MEQ ASDIR PRN IV Ondansetron HCl (ZOFRAN) 4 MG Q6H PRN PRN IV Pacemaker: permanent Physical ExamGeneral appearance: obese, alert, awake, orientedENT: normal noseNeck: no JVDCardiovascular: CV assessment: pedal edema, regular rate and rhythmRespiratory: decreased breath sounds, on oxygen, shortness of breath, no distressAbdomen: obeseGenitourinary: no flank pain, no urinary catheterUpper extremity: UE assessment: normal temperature, no edemaLower extremity: LE assessment: edemaNeuro/[employer]: alert, 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Skin: dryPsychiatry: normal affect, normal mood ResultsFindings/Data:Laboratory Tests 01/01 12/31 12/31 12/31 0329 [facility] 1629 0945 Blood Gas Puncture Site Art Line Art Line Art Line Art Line O2 Saturation (90 - 100 %) 97.3 94.9 81.8 L 80.0 L ABG pH (7.35 - 7.45) 7.380 [...] - 15.0 G/DL) 8.1 L 8.7 L 9.3 L 9.4 L Martin Test N/A N/A Sodium (134 - 147 MEQ/L) 143 143 142 143 Potassium (3.4 - 5.0 MEQ/L) 3.4 3.1 L 3.5 3.5 Chloride (100 - 108 MEQ/L) 93 L 96 L 95 L 96 L Ionized Calcium (1.12 - 1.32 MMOL/L) 1.33 H 1.33 H 1.33 H 1.32 Lactic Acid (0.9 - 1.7 mmol/l) 0.4 L 1.0 1.0 0.8 L Temperature (F) 97.7 97.5 97.3 97.2 O2 Delivery Device BiPAP Cannula Vent Rate (/MIN) 20 FiO2 (%) 40 32 24 Tidal Volume (ml) 450 PEEP (cmH2O) 8 Pressure Support (cmH2O) 18 Laboratory Tests 01/01 01/01 01/01 12/31 12/31 0841 0330 9 2017 1628 Chemistry Sodium (134 - 147 mEq/L) 141 Potassium (3.4 - 5.0 mEq/L) 3.5 Chloride (100 - 108 mEq/L) 102 Carbon Dioxide (21 - 33 mEq/l) 37 H Anion Gap (0 - 20) 6 BUN (7 - 18 mg/dL) 28 H Creatinine (0.6 - 1.3 mg/dL) 1.0 POC Creatinine (0.6 - 1.0 mg/dL) 1.2 H 1.1 H 0.9 Glomerular Filtr Rate (70 - 80) 53.6 [...] (Auto) (14.0 - 32.0 %) 6.1 L Colquitt % (Auto) (4.8 - 9.0 %) 7.0 Eos % (Auto) (0.3 - 3.7 %) 1.4 Baso % (Auto) (0.0 - 2.0 %) 0.2 Neut # (Auto) (2.0 - 7.6 x10 3/uL) 7.84 H Lymph # (Auto) (1.0 - 3.8 x10 3/uL) 0.57 L [place] # (Auto) (0.1 - 0.8 x10 3/uL) 0.66 Eos # (Auto) (0.0 - 0.2 x10 3/uL) 0.13 Baso # (Auto) (0.0 - 0.2 x10 3/uL) 0.02 Abs Immat Gran (auto) (0.00 - 0.03 x10 3/uL) 0.17 H Add Manual Diff NO Immature Gran % (0.0 - 2.0 %) 1.8 Nucleated RBC % (0 - 0 %) 0.7 H Nucleated RBCs # (Man) (0.0 - 0.1 x10 3/uL) 0.07 Laboratory Tests 01/01 0330 Chemistry Magnesium (1.80 - 2.40 mg/dL) 1.92 Radiology data:Recent Impressions:RADIOLOGY - XR CHEST 1 V 01/01 0642 Report Impression - Status: SIGNED Entered: 01/01/2022 0702 IMPRESSION: Stable exam. Bilateral pulmonary opacities likely combination of airspace disease and atelectasis. Bilateral pleural effusions. Stable postoperative cardiomediastinal silhouette. Impression By: Catherine Carlisle M.D. Telemetry Interpretation:paced Diagnosis, Assessment PlanPlan discussed with: patient, daughter Free Text DxA P NotesFree Text DxA P Notes:Ms Giles is a 76 y/o Femal w/ PMHx: CAD, HLD, T2DM, RONA (CPAP at home), smoker,Crohn's disease, AF s/p ablation (on Xarelto), s/p PPM and lymphedema. Dr. Ramos is consulted for CAD s/p CABG, MVR. - CAD s/p CABG, MVR, and ILAA. post-op per CTS and critical care On Plavix, aspirin, beta-delma, statin volume management per Nephrology negative fluid balance - Chr AF s/p PPM/ablation. Rate controlled, paced rhythm. had ILAA during bypass - HTN. BP high, increase metoprolol tartrate to 25 mg BID - HLD. On statins. - Crohn's disease. Per IM. -MARCELLO - resolving per Nephrology -Resp insufficiency on BIPAP/high flow NC as tolerated per critical care -Diastolic CHF/volume overload diuretic management per nephrology/CTS Slowly improvingcontinue supportive carePT/OT as tolerated at 1428 at 1857 [facility] #:[id number] OF REPORTPRProgress [id number]:31:00G.[id number] e for patient ngegVEYDQPJVJWXEHA4879-43-10H87:28:56 HC ACL 2022-01-01 09:18:00 [id number]/RN9HD+pHueim WbTo93uzquJ6 /6KF1TULJpzC/oh/xtYMkHIJ2060-83-33Y57:18:[address] [facility] ([facility])Critical Care Progress NoteREPORT#:[id number] REPORT STATUS: SignedDATE:01/01/22 TIME: 917 PATIENT: KIAH GILES UNIT #: [id number]#: [id number] [address] [birth year] AGE: 76 SEX: F ATTEND: Jeffry More MDADM AUTHOR: Jd Alva MD * ALL edits or amendments must be made on the electronic/computer document * SubjectiveChief complaint:CABG/MVRHPI:76-year-old morbidly obese female with history of HTN, HL, IDDM, smoking, RONA onCPAP and home O2 as needed, macular degeneration, Crohn's disease on immunosuppressant medications, and chronic Afib s/p ablation and PPM (on Xarelto), who was admitted recently with heart failure symptoms. Patient underwent elective cardiac cath that showed severe multivessel coronary artery disease notsuitable for percutaneous intervention. 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 She went for surgical revascularization today and preop JORDEN revealed severe mitral regurgitation. After discussing new findings with family, patient underwent MVR (31 Magna valve), CABG x 1 (ROBERTS-LAD), ILAA and pericardectomy on 12/19/2021. Has EF of 45%. Crystalloid 1 L, urine output 700, Cell Saver 700. She is a-paced at baseline. Surgery went well and patient was transferred to CVICU postop in a stable surgical condition. She is currentlyintubated on 2 mics of epinephrine, 2 mics of Levophed and insulin drip. CI 3.0,SvO2 in 60%s, CVP 15 and PAP in 60s. Comments:Out of bed in the chairRemains on oxygen via NCUrine output 850 ccNo new complaints reported Objective GeneralVS/I OLast Documented: Result Date Time Temp 97.9 01/01 [...] Urine 850 1350 PATIENT WEIGHT: Weight (lb): 266Weight (oz): 12.15Weight (kg): 121.000 Medications:Active Meds + DC'd Last 24 HrsAcetazolamide (DIAMOX) 500 MG Q24H IV Furosemide (LASIX 40 mg/4 mL INJECTION) 40 MG DAILY IV Sterile Water (WATER FOR INJECTION) 5 ML ASDIR PRN IV Potassium Chloride (POTASSIUM CHLORIDE 20MEQ TAB.ER) 40 MEQ ONCE ONE PO (DC) Furosemide (LASIX 40 mg/4 mL INJECTION) 40 MG Q24H IV (DC) Potassium Chloride (POTASSIUM CHLORIDE 20MEQ TAB.ER) 40 MEQ DAILY PRN PRN PO Insulin Glargine (Lantus/Semglee) 30 UNIT DAILY SUBQ Insulin Glargine (Lantus/Semglee) 20 UNIT BEDTIME SUBQ Insulin Human Lispro (HUMALOG) 0 AC HS SUBQ Dextrose/Water (DEXTROSE 10% IN WATER) 125 ML ASDIR PRN IV (CKD) Dextrose/Water (DEXTROSE 10% IN WATER) 250 ML ASDIR PRN IV (CKD) Glucagon (GLUCAGON) 1 MG ASDIR PRN IM Amiodarone HCl (CORDARONE) 200 MG BID PO Furosemide (LASIX 40 mg/4 mL INJECTION) 40 MG BID 9A 5P IV (DC) Acetazolamide (DIAMOX) 500 MG Q12HR IV (DC) Sterile Water (WATER FOR INJECTION) 5 ML ASDIR PRN IV Sterile Water (WATER FOR INJECTION) 5 ML ASDIR PRN IV Sodium Chloride (SODIUM CHLORIDE) 4 ML RTBID NEB Melatonin (Melatonin) 3 MG BEDTIME PO Sodium Chloride (SODIUM CHLORIDE) 10 ML BID IV Sodium Chloride (SODIUM CHLORIDE) 10 ML ASDIR PRN IV Pantoprazole (PROTONIX) 40 MG DAILY PO Dexmedetomidine/Sodium Chloride (PRECEDEX 1000MCG/NS 250ML) 250 ML ASDIR IV Bisacodyl (DULCOLAX) 10 MG DAILY PRN PRN RECTAL Lactulose (LACTULOSE) 20 GM DAILY PRN PRN PO Magnesium Hydroxide (MILK OF MAGNESIA) 30 ML DAILY PRN PRN PO Aspirin (ASPIRIN) 81 MG DAILY PO Clopidogrel Bisulfate (Plavix) 75 MG DAILY PO Cyanocobalamin (Vitamin B-12 500 mcg tab) 500 MCG DAILY PO Ferrous Sulfate (FERROUS SULFATE) 325 MG DAILY PO Metolazone (metOLazone) 5 MG DAILY PO Polyethylene [...] (DC) Sodium Chloride (SODIUM CHLORIDE 0.9%) 99 MLAcetylcysteine (MUCOMYST FOR RT) 200 MG RTQ6H NEB Albuterol/Ipratropium (DUONEB) 3 ML RTQ6H NEB Bisacodyl (DULCOLAX) 10 MG ONCE PRN RECTAL Dopamine HCl/Dextrose (DOPamine 400MG/D5W 250ML) 250 ML ASDIR IV Milrinone Lactate/Dextrose (MILRINONE 20MG/D5W 100ML) 100 ML ASDIR IV (CKD) Vasopressin (VASOSTRICT 20 Unit/NS 100ML) 100 ML ASDIR IV (CKD) Acetaminophen (TYLENOL) 650 MG Q4H PRN PRN RECTAL Calcium Chloride (CALCIUM CHLORIDE) 1 GM ASDIR PRN IV Dextrose/Water (DEXTROSE 10% IN WATER) 125 ML ASDIR PRN IV (DC) Dextrose/Water (DEXTROSE 10% IN WATER) 250 ML ASDIR PRN IV (DC) Glucagon (GLUCAGON) 1 MG ASDIR PRN IM (DC) Magnesium Sulfate (MAGNESIUM SULFATE 4GM/SWFI 100ML) 100 ML ASDIR PRN IV Magnesium Sulfate (MAGNESIUM SULFATE 2GM/SWFI 50ML) 50 ML ASDIR PRN IV Magnesium Sulfate/Dextrose (MAGNESIUM SULFATE 1GM/D5W 100ML) 100 ML ASDIR PRN IV Nitroglycerin/Dextrose (NITROGLYCERIN 50,000MCG/D5W 250ML) 250 ML ASDIR IV Norepinephrine Bitartrate (NOREPINEPHRINE 8 MG/NS 250 ML) 250 ML TITRATE IV Potassium Chloride (KCL 20MEQ/SWFI 100ML) 100 ML ASDIR PRN IV Sodium Bicarbonate (SODIUM BICARBONATE) 50 MEQ ASDIR PRN IV Ondansetron HCl (ZOFRAN) 4 MG Q6H PRN PRN IV ResultsFindings/data:Laboratory Tests 01/01 12/31 12/31 12/31 4776 2017 6392 6720 Blood Gas Puncture Site Art Line Art Line Art Line Art Line O2 Saturation (90 - 100 %) 97.3 94.9 81.8 L 80.0 L ABG pH (7.35 - 7.45) 7.380 [...] - 15.0 G/DL) 8.1 L 8.7 L 9.3 L 9.4 L Martin Test N/A N/A Sodium (134 - 147 MEQ/L) 143 143 142 143 Potassium (3.4 - 5.0 MEQ/L) 3.4 3.1 L 3.5 3.5 Chloride (100 - 108 MEQ/L) 93 L 96 L 95 L 96 L Ionized Calcium (1.12 - 1.32 MMOL/L) 1.33 H 1.33 H 1.33 H 1.32 Lactic Acid (0.9 - 1.7 mmol/l) 0.4 L 1.0 1.0 0.8 L Temperature (F) 97.7 97.5 97.3 97.2 O2 Delivery Device BiPAP Cannula Vent Rate (/MIN) 20 FiO2 (%) 40 32 24 Tidal Volume (ml) 450 PEEP (cmH2O) 8 Pressure Support (cmH2O) 18 Laboratory Tests 01/0141 329 328 2017 1628 Chemistry Sodium (134 - 147 mEq/L) 141 Potassium (3.4 - 5.0 mEq/L) 3.5 Chloride (100 - 108 mEq/L) 102 Carbon Dioxide (21 - 33 mEq/l) 37 H Anion Gap (0 - 20) 6 BUN (7 - 18 mg/dL) 28 H Creatinine (0.6 - 1.3 mg/dL) 1.0 POC Creatinine (0.6 - 1.0 mg/dL) 1.2 H 1.1 H 0.9 Glomerular Filtr Rate (70 - 80) 53.6 [...] 110 MG/DL) 175 H Laboratory Tests 01/01 033 Hematology WBC (4.5 - 11.0 x10 3/uL) [...] (Auto) (14.0 - 32.0 %) 6.1 L Colquitt % (Auto) (4.8 - 9.0 %) 7.0 Eos % (Auto) (0.3 - 3.7 %) 1.4 Baso % (Auto) (0.0 - 2.0 %) 0.2 Neut # (Auto) (2.0 - 7.6 x10 3/uL) 7.84 H Lymph # (Auto) (1.0 - 3.8 x10 3/uL) 0.57 L [place] # (Auto) (0.1 - 0.8 x10 3/uL) 0.66 Eos # (Auto) (0.0 - 0.2 x10 3/uL) 0.13 Baso # (Auto) (0.0 - 0.2 x10 3/uL) 0.02 Abs Immat Gran (auto) (0.00 - 0.03 x10 3/uL) 0.17 H Add Manual Diff NO Immature Gran % (0.0 - 2.0 %) 1.8 Nucleated RBC % (0 - 0 %) 0.7 H Nucleated RBCs # (Man) (0.0 - 0.1 x10 3/uL) 0.07 Laboratory Tests 01/01/22 0330:[Embedded Image Not Available] Radiology dataRecent Impressions:RADIOLOGY - XR CHEST 1 V 01/01 0642 Report Impression - Status: SIGNED Entered: 01/01/2022 0702 IMPRESSION: Stable exam. Bilateral pulmonary opacities likely combination of airspace disease and atelectasis. Bilateral pleural effusions. Stable postoperative cardiomediastinal silhouette. Impression By: Catherine Carlisle M.D. Free Text Obj NotesFree Text Obj Notes:General appearance: elderly female in no acute distress, interactiveHEENT: atraumatic, normocephalic, moist mucosal membranesNeck: full range of motion, supple with no meningismusCardiovascular: S1S2 regular rate and rhythm, pacedRespiratory: symmetric expansion, no acute respiratory distressAbdomen: soft, obese, non-tender, no distention, no guardingGenitourinary: [place] with clear urineExtremities: pedal pulses palpable, moves all, no clubbing, no cyanosis, BLE edemaMusculoskeletal: normal inspection, no muscle spasmNeuro/CAPTAIN FIRE PREVENTION BUREAU: Alert and oriented x3, CNII-XII grossly intact, no motor deficitsSkin: dry, intact and clean surgery site Diagnosis, Assessment PlanProblem list/A P: 1. S/P MVR (mitral valve replacement) 2. S/P CABG x 1 3. Postoperative pulmonary dysfunction after cardiac surgery 4. Severe mitral regurgitation 5. CAD (coronary artery disease) 6. CKD (chronic kidney disease) 7. Immunosuppressed status 8. RONA on CPAP 9. Chronic a-fib 10. Crohn disease Free text A P:76-year-old morbidly obese female with history of HTN, HL, IDDM, smoking, RONA onCPAP and home O2 as needed, macular degeneration, Crohn's disease on immunosuppressant medications, and chronic Afib s/p ablation and PPM (on Xarelto), who was admitted recently with heart failure symptoms. Patient underwent elective cardiac cath that showed severe multivessel coronary artery disease notsuitable for percutaneous intervention. 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 She went for surgical revascularization today and preop JORDEN revealed severe mitral regurgitation. After discussing new findings with family, patient underwent MVR (31 Magna valve), CABG x 1 (ROBERTS-LAD), ILAA and pericardectomy on 12/19/2021. Has EF of 45%. Crystalloid 1 L, urine output 700, Cell Saver 700. She is a-paced at baseline. Surgery went well and patient was transferred to CVICU postop in a stable surgical condition. She is currentlyintubated on 2 mics of epinephrine, 2 mics of Levophed and insulin drip. CI 3.0,SvO2 in 60%s, CVP 15 and PAP in 60s. Remains neuro intact, multimodal pain control, avoid opiatesPatient is on BiPAP at night for underlying RONA home CPAP as needed -.She is on nasal cannula [address] shows worsening pulmonary edema and atelectasis. Also has pleural effusions ultrasound not a big pocket to safely tap.Duo nebs and Mucomyst. Encourage incentive spirometry. Family at bedside during spirometry with her.Patient is being diuresed with Lasix twice daily and Diamox twice daily. She does have respiratory acidosis with metabolic alkalosis which is balanced with apH of 7.39.Renal followingWhite count is stable. No signs of infection or fever. Continue to monitor. Hemoglobin is stable.Continue beta-delma and amiodarone. Paced rhythmPatient is on insulin drip for control of her sugars. Increase Lantus to 30 twice daily.Patient still has [place] for accurate ins and outs Total critical care time 40 minutes 12/29Waxing and waning mental status, continue melatonin at bedtimeContinue supplemental oxygen and titrate FiO2 to keep saturation more than 90%, on 6 L nasal cannula, alternating with BiPAP 18/7 and 30%Continue follow ABGs and chest x-raysInhaled bronchodilators as neededEncourage incentive spirometryWhite count is stable. No signs of infection or fever. Continue to monitor. Hemoglobin is stable.Continue beta-delma and amiodarone. Diuresis with Bumex 500 mg every 12 hours. Received 1 dose of Lasix IV x1 earlier in the morningMonitor kidney function and trend creatinineMonitor and replete electrolytesStrict I O'sCardiac diet with bowel regimenDecreased Lantus insulin to 20 5 in the morning and 20 at nightContinue monitoring blood glucoseVTE prophylaxisStress ulcer prophylaxisDiscussed with ICU team, CV surgery and daughterCritical care time 39 minutes 12/30Neuro status appears at baseline, avoid narcotics and sedatives, monitor for VH6goshmrobCfej well on HFNC, wean O2 for goal sats in high 80s, obtain ABG as needed, BiPAP use for uncompensated hypercapnia, CXR and CT chest reviewedBlood pressures appear controlled, continue cardiac medicationsCreatinine appears stable, continue diuresis, monitor urine outputTolerating oral diet, has BM/BR, replete hypokalemiaNo fevers or leukocytosis, completed antibiotic course for UTIHemoglobin low but stable, no evidence of active bleedBlood glucose control with SSI and LantusEncourage PT/OT and out of bed as tolerated, plan for IPRDVT and GI prophylaxis with DAPT and PPI 12/31Neuro intact, avoid narcotics and sedatives, monitor for CO2 narcosisSats drops on RA, keep NC for goal sats in high 80s, ABG and BiPAP as needed, CXR reviewedBlood pressures appear controlled, continue cardiac medications, on BB, amiodarone and statinCreatinine remains stable, good urine output, continue diuresis per renalTolerating oral diet, bowel regimen, nutrition support, replete hypokalemiaNo fevers or leukocytosis, completed antibiotic course for UTIHemoglobin appears stable, no evidence of active bleedBlood glucose control with SSI and LantusEncourage PT/OT and out of bed as tolerated, plan for IPRDVT and GI prophylaxis with DAPT and PPI 01/01remains neuro intact, avoid narcotics and sedatives, monitor for CO2 narcosisSats well on NC, on home O2, goal sats in high 80s, has chronic CO2 retention, use BiPAP as needed, remove art line, ABG and CXR reviewedBP fairly controlled, adjust anti-HTN medications, increase BB doseCreatinine remains stable, good urine output, continue diuresis per renalTolerating oral diet, bowel regimen, replete hypokalemia and hypomagnesemiaNo fevers or leukocytosis, treated for UTI, currently off AbxHemoglobin appears stable, no evidence of active bleedingBlood glucose control with SSI and Lantus, will continueEncourage PT/OT and out of bed as tolerated, plan for IPR vs SNFDVT and GI prophylaxis with DAPT and PPI Consultants: cardiology, cardiovascular surgeryPlan discussed with: patient, consultants, nurse, interdisc care team, pharmacy/pharmacistCritical care time: Minutes: 35 at 2241 [facility] #:[id number] OF REPORTPRProgress [id number]:18:00G.[id number] e for patient cvdbEIQIOAAKSIZNYF1138-85-58K67:41:23 HC ACL 2021-12-31 13:01:00 [id number] 73e6y+Ce0Oys /hOz+tl2VSBD7JCTIT8OIJSq1102-40-48L76:01:[address] [facility] ([facility])Hospitalist Progress NoteREPORT#:[id number] REPORT STATUS: SignedDATE:12/31/21 TIME: 1301 PATIENT: KIAH GILES UNIT #: [id number]#: [id number] [address] [birth year] AGE: 76 SEX: F ATTEND: Jeffry More AUTHOR: Meryl Rosa MD * ALL edits or amendments must be made on the electronic/computer document * SubjectiveChief complaint:she remain on high flow O2 less sob and edema acute respiratory failure --post CABGHPI: 76 years old female with PMH of macular degeneration, obesity, obstructive sleepapnea (CPAP at home), former smoker, hypertension, hyperlipidemia, diabetes, Crohn's disease, chronic atrial fibrillation status post 3 ablations in the past(on Xarelto), pacemaker placement is admitted to the hospital post cardiac cath . she need CABG . she had sob for years . sob got worse . she was [place] the [place] . she had cath 3 weeks ago . she was reffered to here for stents placement . she had cath yesterday . it show multiple vessels CAD . she is recommend CABG . she still feel sob . no cp no nausea no vomiting no fever no abdominal pain no dizziness . Review of SystemsConstitutional:Reports: fatigue, generalized weakness. Denies: fever, lethargy. Respiratory:Reports: SOB. Denies: wheezing. Cardiovascular:Reports: DOUGLASS (dyspnea on exertion), edema. Denies: chest pain, orthopnea, palpitations. GI:Denies: abdominal pain, nausea, vomiting. Neuro:Denies: dizziness. Objective GeneralVS/I O:Vital Signs: Date Time Temp Pulse Resp B/P B/P Pulse O2 O2 Flow FiO2 Mean Ox Delivery Rate 12/31 0845 36.2 72 28 142/46 76 82 10/19 0830 36.2 72 36 133/51 79 92 10/19 0815 36.1 75 27 141/49 78 97 10/19 0810 2 10/19 0800 112/74 89 10/19 0800 36.0 69 24 144/51 82 100 10/19 [...] 0200 36.2 75 22 123/46 73 97 12/31 0145 36.2 72 34 105/52 72 97 12/31 0130 36.3 75 23 126/51 77 100 12/31 0115 36.2 74 22 100/44 62 98 12/31 0100 123/60 86 12/31 0100 36.2 75 22 122/51 76 100 [...] I O ending at 0700: 12/31 0700 12/300 Intake Total 450.00 1250 Output Total 1400 1850 Balance -950.00 -600 Intake, IV 100.00 Intake, Oral 350 1250 Output, Urine 1400 1850 Patient 121 kg Weight Weight Standing scale Measurement Method PATIENT WEIGHT: Weight (lb): 266Weight (oz): 12.15Weight (kg): 121.000 Medications:Active Meds + DC'd Last 24 HrsAcetazolamide (DIAMOX) 500 MG Q24H IV Sterile Water (WATER FOR INJECTION) 5 ML ASDIR PRN IV Furosemide (LASIX 40 mg/4 mL INJECTION) 40 MG Q24H IV Potassium Chloride (POTASSIUM CHLORIDE 20MEQ TAB.ER) 40 MEQ ONCE ONE PO (DC) Potassium Chloride (POTASSIUM CHLORIDE 20MEQ TAB.ER) 40 MEQ DAILY PRN PRN PO Potassium Chloride (K-JN 20 MEQ PACKET) 40 MEQ NOW ONE FEED-TUBE (DC) Insulin Glargine (Lantus/Semglee) 30 UNIT DAILY SUBQ Insulin Glargine (Lantus/Semglee) 20 UNIT BEDTIME SUBQ Insulin Human Lispro (HUMALOG) 0 AC HS SUBQ Dextrose/Water (DEXTROSE 10% IN WATER) 125 ML ASDIR PRN IV (CKD) Dextrose/Water (DEXTROSE 10% IN WATER) 250 ML ASDIR PRN IV (CKD) Glucagon (GLUCAGON) 1 MG ASDIR PRN IM Amiodarone HCl (CORDARONE) 200 MG BID PO Furosemide (LASIX 40 mg/4 mL INJECTION) 40 MG BID 9A 5P IV (DC) Acetazolamide (DIAMOX) 500 MG Q12HR IV (DC) Sterile Water (WATER FOR INJECTION) 5 ML ASDIR PRN IV Sterile Water (WATER FOR INJECTION) 5 ML ASDIR PRN IV Sodium Chloride (SODIUM CHLORIDE) 4 ML RTBID NEB Melatonin (Melatonin) 3 MG BEDTIME PO Sodium Chloride (SODIUM CHLORIDE) 10 ML BID IV Sodium Chloride (SODIUM CHLORIDE) 10 ML ASDIR PRN IV Pantoprazole (PROTONIX) 40 MG DAILY PO Dexmedetomidine/Sodium Chloride (PRECEDEX 1000MCG/NS 250ML) 250 ML ASDIR IV Bisacodyl (DULCOLAX) 10 MG DAILY PRN PRN RECTAL Lactulose (LACTULOSE) 20 GM DAILY PRN PRN PO Magnesium Hydroxide (MILK OF MAGNESIA) 30 ML DAILY PRN PRN PO Aspirin (ASPIRIN) 81 MG DAILY PO Clopidogrel Bisulfate (Plavix) 75 MG DAILY PO Cyanocobalamin (Vitamin B-12 500 mcg tab) 500 MCG DAILY PO Ferrous Sulfate (FERROUS SULFATE) 325 MG DAILY PO Metolazone (metOLazone) 5 MG DAILY PO Polyethylene [...] (DC) Sodium Chloride (SODIUM CHLORIDE 0.9%) 99 MLAcetylcysteine (MUCOMYST FOR RT) 200 MG RTQ6H NEB Albuterol/Ipratropium (DUONEB) 3 ML RTQ6H NEB Bisacodyl (DULCOLAX) 10 MG ONCE PRN RECTAL Dopamine HCl/Dextrose (DOPamine 400MG/D5W 250ML) 250 ML ASDIR IV Milrinone Lactate/Dextrose (MILRINONE 20MG/D5W 100ML) 100 ML ASDIR IV (CKD) Vasopressin (VASOSTRICT 20 Unit/NS 100ML) 100 ML ASDIR IV (CKD) Acetaminophen (TYLENOL) 650 MG Q4H PRN PRN RECTAL Calcium Chloride (CALCIUM CHLORIDE) 1 GM ASDIR PRN IV Dextrose/Water (DEXTROSE 10% IN WATER) 125 ML ASDIR PRN IV (CKD) Dextrose/Water (DEXTROSE 10% IN WATER) 250 ML ASDIR PRN IV (CKD) Glucagon (GLUCAGON) 1 MG ASDIR PRN IM Magnesium Sulfate (MAGNESIUM SULFATE 4GM/SWFI 100ML) 100 ML ASDIR PRN IV Magnesium Sulfate (MAGNESIUM SULFATE 2GM/SWFI 50ML) 50 ML ASDIR PRN IV Magnesium Sulfate/Dextrose (MAGNESIUM SULFATE 1GM/D5W 100ML) 100 ML ASDIR PRN IV Nitroglycerin/Dextrose (NITROGLYCERIN 50,000MCG/D5W 250ML) 250 ML ASDIR IV Norepinephrine Bitartrate (NOREPINEPHRINE 8 MG/NS 250 ML) 250 ML TITRATE IV Potassium Chloride (KCL 20MEQ/SWFI 100ML) 100 ML ASDIR PRN IV Sodium Bicarbonate (SODIUM BICARBONATE) 50 MEQ ASDIR PRN IV Ondansetron HCl (ZOFRAN) 4 MG Q6H PRN PRN IV Physical ExamGeneral appearance: alert, awake, orientedHead/Eyes: atraumatic, normal conjunctiva/sclera, normal eyelids/periorb., normocephalicNeck: full range of motion, non-tender, no JVDCardiovascular: normal heart sounds, regular rate rhythmRespiratory: decreased breath sounds, clear to auscultationAbdomen: non-tender, normal bowel sounds, soft, no distentionExtremities: edema, moves all, no calf tendernessNeuro/CAPTAIN FIRE PREVENTION BUREAU: alert, 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Skin: dry, intact ResultsFindings/Data:Laboratory Tests 12/31 12/31 12/31 0945 0850 0410 [...] - 26.0 MMOL/L) 34.7 *H 34.6 *H 40.4 *H ABG Total CO2 36.3 36.1 42.5 [...] (Auto) (14.0 - 32.0 %) 4.5 L [place] % (Auto) (4.8 - 9.0 %) 8.5 Eos % (Auto) (0.3 - 3.7 %) 1.5 Baso % (Auto) (0.0 - 2.0 %) 0.3 Neut # (Auto) (2.0 - 7.6 x10 3/uL) 6.60 Lymph # (Auto) (1.0 - 3.8 x10 3/uL) 0.35 L [place] # (Auto) (0.1 - 0.8 x10 3/uL) 0.67 Eos # (Auto) (0.0 - 0.2 x10 3/uL) 0.12 Baso # (Auto) (0.0 - 0.2 x10 3/uL) 0.02 Abs Immat Gran (auto) (0.00 - 0.03 x10 3/uL) 0.10 H Add Manual Diff NO Immature Gran % (0.0 - 2.0 %) 1.3 Nucleated RBC % (0 - 0 %) 0.6 H Nucleated RBCs # (Man) (0.0 - 0.1 x10 3/uL) 0.05 Polychromasia 2+ Hypochromasia 1+ Anisocytosis 1+ Macrocytosis 1+ Cold Agglutinates 2+ Radiology data:Recent Impressions:CAT SCAN - CT CHEST W/O CONTRAST 12/30 1316 Report Impression - Status: SIGNED Entered: 12/30/2021 2797 IMPRESSION: 1. Bilateral multifocal ground-glass pulmonary opacities with associated interstitial septal thickening. Edema and [...] by the Society of Thoracic Radiology, the [employer] [place] [employer], and RSNA. Published June 07, 2019. Impression By: Catherine Carlisle M.D.RADIOLOGY - XR CHEST 1 V 12/31 0629 Report Impression - Status: SIGNED Entered: 12/31/2021 0708 IMPRESSION: 1. Stable pulmonary opacities with multifocal consolidation and or atelectasis. 2. Stable pleural effusions. 3. Stable postoperative cardiomediastinal silhouette. Impression By: Catherine Carlisle M.D. Treatment Prophylaxis Treatment ProphylaxisDrain(s)/tube(s): Drain(s)/tube(s): chest (x3) Diagnosis, Assessment PlanConsultants: cardiology, cardiovascular surgery Free Text DxA P NotesFree text DxA P notes: 76 years old female with PMH of macular degeneration, obesity, obstructive sleepapnea (CPAP at home), former smoker, hypertension, hyperlipidemia, diabetes, Crohn's disease, chronic atrial fibrillation status post 3 ablations in the past(on Xarelto), pacemaker placement CAD -- multiple vesssels HTNDM HLDCrohn's diseasechronic atrial fibrillation status post 3 ablationsmacular degenerationobesityobstructive sleep apneaacute respiratory failure --post surgery severe mitral valve [...] MVR (31 Magna valve), CABG x 1 (ROBERTS-LAD), ILAA and pericardectomy -- she remain intubated on the vent -- chest tube are in place -on levophed and epinephrine drip -- monitor in CCU 12/20- she was extubated --on bipap now -- NPO --off Levophed/epinephrine, continue vasopressin, inotropes with milrinone, -- chest tube remain in place -- she is stable post surgery 12/21-- she is on high flow O2 -- edema --lasix --chest tube in place --- she is hemodynamic stable -- continue monitor in CCU 12/22- she remain on high O2 CXR show worsening pulmonary venous vascular congestion. --lasix iv tid -- chest tube are [...] drip as nurse -- continue supportive care 12/27On lasix and insulin drips. Back on lantus dose BID, trend glucose.Continue PT/OT.12/28Increase lantus BID. 12/29-- she remain on bipap -- sob and edema --lasiv and diamox iv bid -- FS -- better control -- continue monitor in CVICU 12/30- she improve --less sob and edema -- she tolerance diet -- continue lasix -- continue PT/OT 12/31-- less sob and edema - -- ABG -- review -- improve -- continue lasix -- CM --[facility] evaluation at [facility] #:[id number] OF REPORTPRProgress [id number]:01:00G.[id number] e for patient mghrUHJYGRAEADXQOX5581-41-02Z55:47:00 ACL 2021-12-31 12:13:00 [id number] WLjiuEa3e+Ex t2Uaf4pkHdtSNYMag7hfNUFp6680-43-07J68:13:00 [facility] ProgREPORT#:[id number] REPORT STATUS: SignedDATE:12/31/21 TIME: 1213 PATIENT: KIAH GILES UNIT #: [id number]#: [id number] [address] [birth year] AGE: 76 SEX: F ATTEND: Jefrfy More MDA AUTHOR: Tj Bonner MD * ALL edits or amendments must be made on the electronic/computer document * GeneralPost-op: day 8Status post:1. Mitral valve replacement (31 Magna valve).2. Coronary artery bypass graft surgery x1 (ROBERTS to LAD).3. Isolation of left atrial appendage.4. Pericardiectomy. SubjectiveChief complaint:Shortness of breath Review of SystemsConstitutional:Denies: fever, malaise. Allergy/Immun:Denies: allergic reaction. ENT:Denies: sore throat. Respiratory:Denies: SOB. GI:Denies: abdominal pain. Heme:Denies: bleeding. Neuro:Denies: focal weakness, headache. All systems rev neg: except as marked Objective GeneralVS/I OLast Documented: Result Date Time Pulse Ox 82 01/01 0845 B/P 142/46 01/01 0845 B/P Mean 76 12/31 0845 Temp 36.2 12/31 0845 Pulse 72 12/31 0845 Resp 28 12/31 0845 O2 Flow [...] scale Measurement Method PATIENT WEIGHT: Weight (lb): 266Weight (oz): 12.15Weight (kg): 121.000 Dietitian Nutrition assessmentThe data set between the solid lines has been imported from the dietitian's assessment. BMI Calculated: 45.8Nutrition related diagnosis: Morbid obesityNutrition diagnosis details: BMI 40 or moreNutrition problem: Increased nutrient needsNutrition etiology: Chronic diseaseNutrition signs and symptoms: S/P CABGNutrition prescription: 1. RECOMMEND 1800 ADA DIABETIC DIET WITH HX OF DM. 2. PROVIDE GLUCERNA TID WITH MEALS. 3. MONITOR PO, WT, LABS, BM.Dietitian name: Serenity Garner, DIETAssessment completed: 12/30/21 Physical ExamGeneral appearance: awakeWound/incision: Location:sternal Site condition: dressing clean dry, dressing intactHEENT: anictericNeck: supple/no meningismusCardiovascular: normal heart sounds, regular rate rhythmRespiratory: aerating well, symmetric expansion, no distressAbdomen: soft, non-tenderExtremities: moves allNeuro/[employer]: alert, 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, normal speechSkin: dry, intact, normal temperaturePsychiatry: normal affect, normal mood Current MedicationsMedications:Active Meds + DC'd Last 24 HrsAcetazolamide (DIAMOX) 500 MG Q24H IV Sterile Water (WATER FOR INJECTION) 5 ML ASDIR PRN IV Furosemide (LASIX 40 mg/4 mL INJECTION) 40 MG Q24H IV Potassium Chloride (POTASSIUM CHLORIDE 20MEQ TAB.ER) 40 MEQ ONCE ONE PO (DC) Potassium Chloride (POTASSIUM CHLORIDE 20MEQ TAB.ER) 40 MEQ DAILY PRN PRN PO Potassium Chloride (K-JN 20 MEQ PACKET) 40 MEQ NOW ONE FEED-TUBE (DC) Insulin Glargine (Lantus/Semglee) 30 UNIT DAILY SUBQ Insulin Glargine (Lantus/Semglee) 20 UNIT BEDTIME SUBQ Insulin Human Lispro (HUMALOG) 0 AC HS SUBQ Dextrose/Water (DEXTROSE 10% IN WATER) 125 ML ASDIR PRN IV (CKD) Dextrose/Water (DEXTROSE 10% IN WATER) 250 ML ASDIR PRN IV (CKD) Glucagon (GLUCAGON) 1 MG ASDIR PRN IM Amiodarone HCl (CORDARONE) 200 MG BID PO Furosemide (LASIX 40 mg/4 mL INJECTION) 40 MG BID 9A 5P IV (DC) Acetazolamide (DIAMOX) 500 MG Q12HR IV (DC) Sterile Water (WATER FOR INJECTION) 5 ML ASDIR PRN IV Sterile Water (WATER FOR INJECTION) 5 ML ASDIR PRN IV Sodium Chloride (SODIUM CHLORIDE) 4 ML RTBID NEB Melatonin (Melatonin) 3 MG BEDTIME PO Sodium Chloride (SODIUM CHLORIDE) 10 ML BID IV Sodium Chloride (SODIUM CHLORIDE) 10 ML ASDIR PRN IV Pantoprazole (PROTONIX) 40 MG DAILY PO Dexmedetomidine/Sodium Chloride (PRECEDEX 1000MCG/NS 250ML) 250 ML ASDIR IV Bisacodyl (DULCOLAX) 10 MG DAILY PRN PRN RECTAL Lactulose (LACTULOSE) 20 GM DAILY PRN PRN PO Magnesium Hydroxide (MILK OF MAGNESIA) 30 ML DAILY PRN PRN PO Aspirin (ASPIRIN) 81 MG DAILY PO Clopidogrel Bisulfate (Plavix) 75 MG DAILY PO Cyanocobalamin (Vitamin B-12 500 mcg tab) 500 MCG DAILY PO Ferrous Sulfate (FERROUS SULFATE) 325 MG DAILY PO Metolazone (metOLazone) 5 MG DAILY PO Polyethylene [...] (DC) Sodium Chloride (SODIUM CHLORIDE 0.9%) 99 MLAcetylcysteine (MUCOMYST FOR RT) 200 MG RTQ6H NEB Albuterol/Ipratropium (DUONEB) 3 ML RTQ6H NEB Bisacodyl (DULCOLAX) 10 MG ONCE PRN RECTAL Dopamine HCl/Dextrose (DOPamine 400MG/D5W 250ML) 250 ML ASDIR IV Milrinone Lactate/Dextrose (MILRINONE 20MG/D5W 100ML) 100 ML ASDIR IV (CKD) Vasopressin (VASOSTRICT 20 Unit/NS 100ML) 100 ML ASDIR IV (CKD) Acetaminophen (TYLENOL) 650 MG Q4H PRN PRN RECTAL Calcium Chloride (CALCIUM CHLORIDE) 1 GM ASDIR PRN IV Dextrose/Water (DEXTROSE 10% IN WATER) 125 ML ASDIR PRN IV (CKD) Dextrose/Water (DEXTROSE 10% IN WATER) 250 ML ASDIR PRN IV (CKD) Glucagon (GLUCAGON) 1 MG ASDIR PRN IM Magnesium Sulfate (MAGNESIUM SULFATE 4GM/SWFI 100ML) 100 ML ASDIR PRN IV Magnesium Sulfate (MAGNESIUM SULFATE 2GM/SWFI 50ML) 50 ML ASDIR PRN IV Magnesium Sulfate/Dextrose (MAGNESIUM SULFATE 1GM/D5W 100ML) 100 ML ASDIR PRN IV Nitroglycerin/Dextrose (NITROGLYCERIN 50,000MCG/D5W 250ML) 250 ML ASDIR IV Norepinephrine Bitartrate (NOREPINEPHRINE 8 MG/NS 250 ML) 250 ML TITRATE IV Potassium Chloride (KCL 20MEQ/SWFI 100ML) 100 ML ASDIR PRN IV Sodium Bicarbonate (SODIUM BICARBONATE) 50 MEQ ASDIR PRN IV Ondansetron HCl (ZOFRAN) 4 MG Q6H PRN PRN IV ResultsFindings/Data:Laboratory Tests 12/31 12/31 12/31 0945 0850 0410 [...] - 26.0 MMOL/L) 34.7 *H 34.6 *H 40.4 *H ABG Total CO2 36.3 36.1 42.5 [...] 12/31 12/31 12/31 12/31 0945 0850 0754 0410 0404 Chemistry Sodium (134 - 147 mEq/L) [...] (Auto) (14.0 - 32.0 %) 4.5 L Colquitt % (Auto) (4.8 - 9.0 %) 8.5 Eos % (Auto) (0.3 - 3.7 %) 1.5 Baso % (Auto) (0.0 - 2.0 %) 0.3 Neut # (Auto) (2.0 - 7.6 x10 3/uL) 6.60 Lymph # (Auto) (1.0 - 3.8 x10 3/uL) 0.35 L [place] # (Auto) (0.1 - 0.8 x10 3/uL) 0.67 Eos # (Auto) (0.0 - 0.2 x10 3/uL) 0.12 Baso # (Auto) (0.0 - 0.2 x10 3/uL) 0.02 Abs Immat Gran (auto) (0.00 - 0.03 x10 3/uL) 0.10 H Add Manual Diff NO Immature Gran % (0.0 - 2.0 %) 1.3 Nucleated RBC % (0 - 0 %) 0.6 H Nucleated RBCs # (Man) (0.0 - 0.1 x10 3/uL) 0.05 Polychromasia 2+ Hypochromasia 1+ Anisocytosis 1+ Macrocytosis 1+ Cold Agglutinates 2+ Radiology data:Recent Impressions:CAT SCAN - CT CHEST W/O CONTRAST 12/30 1316 Report Impression - Status: SIGNED Entered: 12/30/2021 1433 IMPRESSION: 1. Bilateral multifocal ground-glass pulmonary opacities with associated interstitial septal thickening. Edema and [...] by the Society of Thoracic Radiology, the [employer] [place] [employer], and RSNA. Published June 07, 2019. Impression By: Catherine Carlisle M.D.RADIOLOGY - XR CHEST 1 V 12/31 0629 Report Impression - Status: SIGNED Entered: 12/31/2021 0708 IMPRESSION: 1. Stable pulmonary opacities with multifocal consolidation and or atelectasis. 2. Stable pleural effusions. 3. Stable postoperative cardiomediastinal silhouette. Impression By: Catherine Carlisle M.D. Results: rythm personally rev'd, x-ray personally reviewed, current med profile rev'd Treatment Prophylaxis Treatment ProphylaxisOxygen: CPAP/BIPAPLines: arterial, CVC, peripheralDrain(s)/tube(s): Drain(s)/tube(s): chest (x3) Quality: Trauma Gen Surg Current MedicationsCurrent medication review:Home Medications:RIVAROXABAN (XARELTO) 20 MG PO DAILY amLODIPine (NORVASC) [...] DAILY INSULIN DETEMIR (LEVEMIR FlexTouch (15mL)) 50 UNITS SUBQ BID INSULIN LISPRO (HumaLOG CARTRIDGE (15mL)) 0 UNITS SUBQ TID LIRAGLUTIDE (VICTOZA (6mL)) 1.8 MG SUBQ DAILY metFORMIN (GLUCOPHAGE) 1,000 MG PO BID ADALIMUMAB + SUPPLIES (HUMIRA PREFILLED PEN) 40 MG SUBQ Q14D azaTHIOprine (IMURAN) 50 MG PO DAILY I attest that the foregoing medication list in the medical record is true, accurate, and complete to the best of my knowledge. Diagnosis, Assessment PlanHospital course to date:This very pleasant 76-year-old female, from [facility], with past medical history of macular degeneration, obesity, obstructive sleep apnea (CPAP at home), former smoker, hypertension, hyperlipidemia, diabetes, Crohn's disease, chronic atrial fibrillation status post 3 ablations in the past (on Xarelto), pacemaker placement who had a recent admission to the hospital with heart failure symptoms. She has been admitted to the hospital today for elective heartcath. Coronary angiogram showed severe multivessel coronary artery disease suitable for percutaneous intervention. CV surgery called for evaluation. 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 She will benefit from off-pump ROBERTS to LAD and pericardiotomy. Dr. Romero explainedto the patient the surgery, risks involved, STS score, benefits, complications and alternatives. She acknowledged understanding and is willing to proceedPreop work-up has been initiatedWe will tentatively schedule patient for surgery tomorrow. 12/18 Preop assessment ongoingNo carotid stenosis on ultrasoundCT chest reviewed with Dr. Singhurgery rescheduled for tomorrowNPO after midnight Plan discussed with the patient 12/20 POD 1Patient hemodynamically stable, cardiac index 3.1Required Bipap after extubation yesterday and overnightTrend ABGs- wean bipap as toleratedDecrease milrinone drip to 0.125, and continue vasopressin at 0.02 Urine output marginal- dopamine drip started at 3Creatinine increased to 1.4, monitor strict I and O'sEncourage po intake, incentive spirometer useTry to get patient out of bed to chair today PT/OTMonitor patient closely in the CVICU 12/22/21POD3d/c chest tubesneed to diuresis agressively 40 o94yfcar needs legs elevatedcxr appears wetd/c swanTPN due to bipapteleflex today keep TPN for now 12/23 POD 4Labs and cxr reviewedIncrease diuresis- monitor strict I OsContinue TPNOn teleflex 60L 70%- wean as toleratedMonitor patient in CVICU 12/25/21 POD 6back on bipapif reintubate consider trach still on TPNif trach consider PEG 12/26/21POD 7contiune bipap support alt with teleflexif reintubate will need trach and pegcontinue hyperal 12/29/21 improvingless O2 requirementsambulating much bettertolorating dietrahab vs LTAC placement 01/31/22 much better from O2 needs standpointambulating betteradvancing dietplan rehab vs LTAC Consultants: cardiology, cardiovascular surgery at 1215 RPT #:[id number] OF REPORTPRProgress [id number]:13:00G.[id number] e for patient [id number]:16:03 [facility] 2021-12-31 10:59:00 [id number] QdGJnFfBy0ev [id number]:59:[address] [facility] ([facility])Nephrology Progress NoteREPORT#:[id number] REPORT STATUS: SignedDATE:12/31/21 TIME: 1059 PATIENT: KIAH GILES UNIT #: [id number]#: [id number] [address] [birth year] AGE: 76 SEX: F ATTEND: Jeffry More AUTHOR: Suki Fuchs MD * ALL edits or amendments must be made on the electronic/computer document * SubjectiveChief complaint:chest painHPI:This is a 76-year-old female who has past medical history of hypertension, diabetes, coronary artery disease, atrial fibrillation who presented with worsening shortness of breath and on further work-up was 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 She was withnormal kidney function prior to surgery and after her surgery she began to develop oliguria. Her procedure was done without any complications but after her surgery she did require pressor support for hypotension and she was intubated for respiratory acidosis and hypoxia and she was treated with vancomycin for infection treatment. When she was seen this morning she continued to have hypotension and her heart rate was paced by her permanent pacemaker and her urine output was 20 to 30/h. Her family at bedside denied anyhistory of kidney disease, kidney stone, chronic NSAID use or any urinary complaints. They also endorse that her blood pressure and diabetes were mostly controlled. day she was comfortable, volume improving with IV lasix. Objective GeneralVS/I O:Vital Signs: Date Time Temp Pulse Resp B/P B/P Pulse O2 O2 Flow FiO2 Mean Ox Delivery Rate 01/01 0845 36.2 72 28 142/46 76 82 12/31 0830 36.2 72 36 133/51 79 92 12/31 0815 36.1 75 27 141/49 78 97 12/31 0810 2 12/31 0800 112/74 89 12/31 0800 36.0 69 24 144/51 82 100 / 0754 99 High flow 3 32 nasal cannula 12/31 0745 36.0 69 26 143/50 81 99 / 0730 36.0 80 33 134/44 71 86 / 0715 36.1 71 29 140/48 77 90 / 0700 111/59 80 10/ 0700 36.0 71 29 136/42 70 83 / 0645 36.0 69 21 135/45 73 97 / 0630 36.0 71 35 142/52 80 100 [...] 122/44 70 92 10/19 0001 125/57 82 10/19 0001 36.3 76 20 128/49 78 100 10/19 0000 36.3 75 18 130/51 80 100 10/18 2345 36.3 74 21 121/46 73 100 10/18 2330 36.3 72 27 126/49 77 100 [...] 63 100 12/30 2125 110/59 69 12/30 2124 36.2 73 30 142/42 73 100 12/30 [...] O ending at 0700: 12/31 0700 12/30 190 Intake Total 450.00 1250 Output Total 1400 1850 Balance -950.00 -600 Intake, IV 100.00 Intake, Oral 350 1250 Output, Urine 1400 1850 Patient 121 kg Weight Weight Standing scale Measurement Method PATIENT WEIGHT: Weight (lb): 266Weight (oz): 12.15Weight (kg): 121.000 Physical ExamGeneral appearance: alert, awake, orientedHead/eyes: atraumatic, normocephalicENT: moist mucous membranes, normal noseNeck: no JVD, no lymphadenopathyCardiovascular: normal heart sounds, regular rate and rhythmRespiratory: aerating well, clear to auscultationAbdomen: soft, no pulsatile massGenitourinary: urinary catheterExtremities: no gangrene, no swelling Treatment Prophylaxis Treatment ProphylaxisDrain(s)/tube(s): Drain(s)/tube(s): chest (x3) Diagnosis, Assessment PlanFree Text A P:This is a 76-year-old female known to have hypertension, diabetes, atrial fibrillation, s/p permanent pacemaker and history of ablation presenting with shortness of breath and 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 Nephrology is following for: 1. Acute kidney injury: Most likely it is prerenal (cardiorenal), she has been hypotensive postoperatively with requirement for pressor support and inotropic support. Plan is to increase inotropic support or pressor support to bring meanarterial pressure above 65 and give albumin with Lasix to see if it helps him diurese. If he does not respond to higher dose Lasix with albumin then I will consider starting him on CRRT to prevent hyper volemia. 2. Hypervolemia: Plan is to give Lasix and if he does not respond to start him on CRRT for extra fluid removal. 3. His electrolytes were all reviewed to be in normal range plan was to monitorand replace as needed. 4. He was receiving vancomycin so plan was to monitor vancomycin trough levels to prevent ATN. 5/ Metabolic alkalosis secondary to diuretics : Plan to give acetazoleamide if worsening. . Acute kidney injury: Resolved, she is responding to lasix. 2. Hypervolemia: Plan to continue lasix as tolerated.Today she was on low dose twice daily lasix. 3. Hypokalemia/hypomagnesemia:secondary to diuretics, plan was to monitor and replace as needed. 4. She was receiving vancomycin so plan was to monitor vancomycin trough levelsto prevent ATN. 5/ Metabolic alkalosis secondary to diuretics : Plan to give acetazoleamide and monitor closely. 12/28 1. Acute kidney injury: Resolved, she is responding to lasix. 2. Hypervolemia: Plan to continue lasix as tolerated.Today she was on low dose twice daily lasix. 3. Hypokalemia/hypomagnesemia:secondary to diuretics, plan was to monitor and replace as needed. 4. She was receiving vancomycin so plan was to monitor vancomycin trough levelsto prevent ATN. 5/ Metabolic alkalosis secondary to diuretics : Plan to give acetazoleamide and monitor closely. 12/28 1. Acute kidney injury: Resolved, she is responding to lasix. 2. Hypervolemia: Plan to continue lasix as tolerated.Today she was on low dose twice daily lasix. 3. Hypokalemia/hypomagnesemia:secondary to diuretics, plan was to monitor and replace as needed. 4. She was receiving vancomycin so plan was to monitor vancomycin trough levelsto prevent ATN. 5/ Metabolic alkalosis secondary to diuretics : Plan to give acetazoleamide and monitor closely. 12/29 1. Acute kidney injury: Resolved, she is responding to lasix. 2. Hypervolemia: Plan to continue lasix as tolerated.Today she was on low dose twice daily lasix. 3. Hypokalemia/hypomagnesemia:secondary to diuretics, plan was to monitor and replace as needed. 4. She was receiving vancomycin so plan was to monitor vancomycin trough levelsto prevent ATN. 5/ Metabolic alkalosis secondary to diuretics : Plan to give acetazoleamide andmonitor closely. 12/30 1. Acute kidney injury: Resolved, she is responding to lasix. 2. Hypervolemia: Plan to continue lasix as tolerated.Today she was on low dose twice daily lasix. 3. Hypokalemia/hypomagnesemia:secondary to diuretics, plan was to monitor and replace as needed. 4. Metabolic alkalosis secondary to diuretics : Plan to continue acetazoleamide and monitor closely. 12/31 1. Acute kidney injury: Resolved, she is responding to lasix. 2. Hypervolemia: Plan to continue lasix as tolerated.Today she was on low dose twice daily lasix. 3. Hypokalemia/hypomagnesemia:secondary to diuretics, plan was to monitor and replace as needed. 4. Metabolic alkalosis secondary to diuretics :Improved so acetazoleamide reduced. Consultants: cardiology, cardiovascular surgery at 1109 RPT #:[id number] OF REPORTPRProgress [id number]:59:00G.[id number] e for patient [id number]:09:34 [facility] 2021-12-31 09:07:00 [id number]/ [id number] FGdreCY3HaN7trGz7Mktw79e5157-15-85L52:07:00 [facility])Cardiology Progress NoteREPORT#:[id number] REPORT STATUS: SignedDATE:12/31/21 TIME: 09 PATIENT: KIAH GILES UNIT #: [id number]#: [id number] [address] [birth year] AGE: 76 SEX: F ATTEND: Jeffry More [facility] AUTHOR: Isabella Clemens * ALL edits or amendments must be made on the electronic/computer document * SubjectiveComments:Slowly getting better. On NC. Awake and alert. Objective GeneralVS/I O:24 hour I O ending at 0700: 12/31 0700 12/30 1900 Intake Total 450.00 1250 Output Total 1400 1850 Balance -950.00 -600 Intake, IV 100.00 Intake, Oral 350 1250 Output, Urine 1400 1850 Patient 121 kg Weight Weight Standing scale Measurement Method Vital Signs: Date Time Temp Pulse Resp B/P B/P Pulse O2 O2 Flow FiO2 Mean Ox Delivery Rate 12/31 0810 2 12/31 0754 99 High flow 3 32 nasal cannula 12/31 07 36.0 71 29 136/42 70 83 12/31 [...] 122/44 70 92 10/19 0001 125/57 82 10/19 0001 36.3 76 20 128/49 78 100 10/19 0000 36.3 75 18 130/51 80 100 10/18 2345 36.3 74 21 121/46 73 100 10/18 2330 36.3 72 27 126/49 77 100 10/18 2315 36.3 73 21 130/49 77 100 10/18 2301 139/63 91 10/18 2301 36.3 75 37 123/46 74 89 10/18 2300 36.4 75 27 126/46 73 94 10/18 2245 36.3 75 16 110/39 60 100 10/18 2230 36.3 75 15 115/41 63 100 12/30 2214 36.2 74 16 111/37 58 98 12/30 2200 149/70 84 12/30 2200 36.2 75 24 137/45 72 100 12/30 2199 36.2 75 22 139/44 73 100 12/30 2144 36.2 69 24 141/45 75 97 12/30 2129 36.2 73 21 133/38 63 100 12/30 2124 110/59 69 12/30 2124 36.2 73 30 142/42 73 100 12/30 2114 36.1 72 37 140/41 70 100 12/30 2099 36.0 73 29 139/45 77 12/30 2056 [...] 190 36.1 73 28 142/48 77 98 12/30 0915 35.9 73 22 127/44 70 82 PATIENT WEIGHT: Weight (lb): 266Weight (oz): 12.15Weight (kg): 121.000 Medications:Active Meds + DC'd Last 24 HrsPotassium Chloride (POTASSIUM CHLORIDE 20MEQ TAB.ER) 40 MEQ ONCE ONE PO (DC) Potassium Chloride (POTASSIUM CHLORIDE 20MEQ TAB.ER) 40 MEQ DAILY PRN PRN PO Potassium Chloride (K-JN 20 MEQ PACKET) 40 MEQ NOW ONE FEED-TUBE (DC) Insulin Glargine (Lantus/Semglee) 30 UNIT DAILY SUBQ Insulin Glargine (Lantus/Semglee) 20 UNIT BEDTIME SUBQ Insulin Human Lispro (HUMALOG) 0 AC HS SUBQ Dextrose/Water (DEXTROSE 10% IN WATER) 125 ML ASDIR PRN IV (CKD) Dextrose/Water (DEXTROSE 10% IN WATER) 250 ML ASDIR PRN IV (CKD) Glucagon (GLUCAGON) 1 MG ASDIR PRN IM Amiodarone HCl (CORDARONE) 200 MG BID PO Furosemide (LASIX 40 mg/4 mL INJECTION) 40 MG BID 9A 5P IV Acetazolamide (DIAMOX) 500 MG Q12HR IV Sterile Water (WATER FOR INJECTION) 5 ML ASDIR PRN IV Sterile Water (WATER FOR INJECTION) 5 ML ASDIR PRN IV Sodium Chloride (SODIUM CHLORIDE) 4 ML RTBID NEB Melatonin (Melatonin) 3 MG BEDTIME PO Sodium Chloride (SODIUM CHLORIDE) 10 ML BID IV Sodium Chloride (SODIUM CHLORIDE) 10 ML ASDIR PRN IV Pantoprazole (PROTONIX) 40 MG DAILY PO Dexmedetomidine/Sodium Chloride (PRECEDEX 1000MCG/NS 250ML) 250 ML ASDIR IV Bisacodyl (DULCOLAX) 10 MG DAILY PRN PRN RECTAL Lactulose (LACTULOSE) 20 GM DAILY PRN PRN PO Magnesium Hydroxide (MILK OF MAGNESIA) 30 ML DAILY PRN PRN PO Aspirin (ASPIRIN) 81 MG DAILY PO Clopidogrel Bisulfate (Plavix) 75 MG DAILY PO Cyanocobalamin (Vitamin B-12 500 mcg tab) 500 MCG DAILY PO Ferrous Sulfate (FERROUS SULFATE) 325 MG DAILY PO Metolazone (metOLazone) 5 MG DAILY PO Polyethylene [...] (CKD) Sodium Chloride (SODIUM CHLORIDE 0.9%) 99 MLAcetylcysteine (MUCOMYST FOR RT) 200 MG RTQ6H NEB Albuterol/Ipratropium (DUONEB) 3 ML RTQ6H NEB Bisacodyl (DULCOLAX) 10 MG ONCE PRN RECTAL Dopamine HCl/Dextrose (DOPamine 400MG/D5W 250ML) 250 ML ASDIR IV Milrinone Lactate/Dextrose (MILRINONE 20MG/D5W 100ML) 100 ML ASDIR IV (CKD) Vasopressin (VASOSTRICT 20 Unit/NS 100ML) 100 ML ASDIR IV (CKD) Acetaminophen (TYLENOL) 650 MG Q4H PRN PRN RECTAL Calcium Chloride (CALCIUM CHLORIDE) 1 GM ASDIR PRN IV Dextrose/Water (DEXTROSE 10% IN WATER) 125 ML ASDIR PRN IV (CKD) Dextrose/Water (DEXTROSE 10% IN WATER) 250 ML ASDIR PRN IV (CKD) Glucagon (GLUCAGON) 1 MG ASDIR PRN IM Magnesium Sulfate (MAGNESIUM SULFATE 4GM/SWFI 100ML) 100 ML ASDIR PRN IV Magnesium Sulfate (MAGNESIUM SULFATE 2GM/SWFI 50ML) 50 ML ASDIR PRN IV Magnesium Sulfate/Dextrose (MAGNESIUM SULFATE 1GM/D5W 100ML) 100 ML ASDIR PRN IV Nitroglycerin/Dextrose (NITROGLYCERIN 50,000MCG/D5W 250ML) 250 ML ASDIR IV Norepinephrine Bitartrate (NOREPINEPHRINE 8 MG/NS 250 ML) 250 ML TITRATE IV Potassium Chloride (KCL 20MEQ/SWFI 100ML) 100 ML ASDIR PRN IV Sodium Bicarbonate (SODIUM BICARBONATE) 50 MEQ ASDIR PRN IV Ondansetron HCl (ZOFRAN) 4 MG Q6H PRN PRN IV Status post:CABG, MVR, and ILAA Physical ExamGeneral appearance: chronically ill appearing, obese, alert, awake, oriented, noacute distress, pleasantENT: moist mucosal membranesNeck: no JVDCardiovascular: CV assessment: pedal edema, regular rate and rhythmRespiratory: decreased breath sounds, on oxygenAbdomen: obeseGenitourinary: no flank pain, no urinary catheterUpper extremity: UE assessment: normal temperature, no edemaLower extremity: LE assessment: edemaNeuro/[employer]: alert, 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Skin: dry, intactPsychiatry: normal affect, normal mood ResultsFindings/Data:Laboratory Tests 12/31 12/31 0850 0410 Blood Gas [...] Calcium (1.12 - 1.32 MMOL/L) 1.34 H 1.41 H Lactic Acid (0.9 [...] (Auto) (14.0 - 32.0 %) 4.5 L Colquitt % (Auto) (4.8 - 9.0 %) 8.5 Eos % (Auto) (0.3 - 3.7 %) 1.5 Baso % (Auto) (0.0 - 2.0 %) 0.3 Neut # (Auto) (2.0 - 7.6 x10 3/uL) 6.60 Lymph # (Auto) (1.0 - 3.8 x10 3/uL) 0.35 L [place] # (Auto) (0.1 - 0.8 x10 3/uL) 0.67 Eos # (Auto) (0.0 - 0.2 x10 3/uL) 0.12 Baso # (Auto) (0.0 - 0.2 x10 3/uL) 0.02 Abs Immat Gran (auto) (0.00 - 0.03 x10 3/uL) 0.10 H Add Manual Diff NO Immature Gran % (0.0 - 2.0 %) 1.3 Nucleated RBC % (0 - 0 %) 0.6 H Nucleated RBCs # (Man) (0.0 - 0.1 x10 3/uL) 0.05 Laboratory Tests 12/31 12/30 0404 1840 Chemistry Magnesium (1.80 - 2.40 mg/dL) 2.24 1.84 Radiology data:Recent Impressions:CAT SCAN - CT CHEST W/O CONTRAST 12/30 1316 Report Impression - Status: SIGNED Entered: 12/30/2021 1433 IMPRESSION: 1. Bilateral multifocal ground-glass pulmonary opacities with associated interstitial septal thickening. Edema and [...] by the Society of Thoracic Radiology, the [employer] [place] [employer], and RSNA. Published June 07, 2019. Impression By: Catherine Carlisle M.D.RADIOLOGY - XR CHEST 1 V 12/31 0629 Report Impression - Status: SIGNED Entered: 12/31/2021 0708 IMPRESSION: 1. Stable pulmonary opacities with multifocal consolidation and or atelectasis. 2. Stable pleural effusions. 3. Stable postoperative cardiomediastinal silhouette. Impression By: Catherine Carlisle M.D. Telemetry Interpretation:Vpaced Diagnosis, Assessment PlanPlan discussed with: patient Free Text DxA P NotesFree Text DxA P Notes:Ms Giles is a 76 y/o Femal w/ PMHx: CAD, HLD, T2DM, RONA (CPAP at home), smoker,Crohn's disease, AF s/p ablation (on Xarelto), s/p PPM and lymphedema. Dr. Ramos is consulted for CAD s/p CABG, MVR. - CAD s/p CABG, MVR, and ILAA. post-op per CTS and critical care On Plavix, aspirin, beta-delma, statin volume management per Nephrology rotating bipap with high flow NC as tolerated- weaning as tolerated - Chr AF s/p PPM/ablation. Rate controlled, paced rhythm. had ILAA during bypass - HTN. BP stable - HLD. On statins. - Crohn's disease. Per IM. -MARCELLO - resolvingper Nephrology -Resp insufficiency on BIPAP/high flow NC as tolerated per critical care -Diastolic CHF/volume overload diuretic management per nephrology/CTS Slowly improvingcontinue supportive carePT/OT as tolerated at 1553 at 2331 RPT #:[id number] OF REPORTPRProgress [id number]:07:00G.[id number] e for patient loyaPHIFAKZPSBLHXU2292-96-48Q69:53:37 HC ACL 2021-12-31 09:03:00 [id number] UcZb9/sP/4oG ZAiOWXXjTnc9nDubCgupzs3m6048-40-83C67:03:00 [facility] CenterCritical Care Progress NoteREPORT#:[id number] REPORT STATUS: SignedDATE:12/31/21 TIME: 0903 PATIENT: KIAH GILES UNIT #: [id number]#: [id number] [address] [birth year] AGE: 76 SEX: F ATTEND: Jeffry More AUTHOR: Jd Alva MD * ALL edits or amendments must be made on the electronic/computer document * SubjectiveChief complaint:CABG/MVRHPI:76-year-old morbidly obese female with history of HTN, HL, IDDM, smoking, RONA onCPAP and home O2 as needed, macular degeneration, Crohn's disease on immunosuppressant medications, and chronic Afib s/p ablation and PPM (on Xarelto), who was admitted recently with heart failure symptoms. Patient underwent elective cardiac cath that showed severe multivessel coronary artery disease notsuitable for percutaneous intervention. 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 She went for surgical revascularization today and preop JORDEN revealed severe mitral regurgitation. After discussing new findings with family, patient underwent MVR (31 Magna valve), CABG x 1 (ROBERTS-LAD), ILAA and pericardectomy on 12/19/2021. Has EF of 45%. Crystalloid 1 L, urine output 700, Cell Saver 700. She is a-paced at baseline. Surgery went well and patient was transferred to CVICU postop in a stable surgical condition. She is currentlyintubated on 2 mics of epinephrine, 2 mics of Levophed and insulin drip. CI 3.0,SvO2 in 60%s, CVP 15 and PAP in 60s. Comments:Out of bed in the chairsats high 90s on 2L NC, dropped to 60s on RAno new complaints reported Objective GeneralVS/I OLast Documented: Result Date Time O2 Flow Rate 2 12/31 0810 Pulse Ox 99 12/31 0754 FiO2 32 12/31 0754 O2 Delivery High flow nasal cannula 12/31 0754 B/P 136/42 12/31 07 B/P Mean 70 12/31 699 Temp 96.8 12/31 07 Pulse 71 12/31 07 Resp 29 12/31 0700 24 hour I O ending at 0700: 12/31 0700 12/30 1900 Intake Total 450.00 1250 Output Total 1400 1850 Balance -950.00 -600 Intake, IV 100.00 Intake, Oral 350 1250 Output, Urine 1400 1850 Patient 121 kg Weight Weight Standing scale Measurement Method PATIENT WEIGHT: Weight (lb): 266Weight (oz): 12.15Weight (kg): 121.000 Medications:Active Meds + DC'd Last 24 HrsPotassium Chloride (POTASSIUM CHLORIDE 20MEQ TAB.ER) 40 MEQ ONCE ONE PO (DC) Potassium Chloride (POTASSIUM CHLORIDE 20MEQ TAB.ER) 40 MEQ DAILY PRN PRN PO Potassium Chloride (K-JN 20 MEQ PACKET) 40 MEQ NOW ONE FEED-TUBE (DC) Insulin Glargine (Lantus/Semglee) 30 UNIT DAILY SUBQ Insulin Glargine (Lantus/Semglee) 20 UNIT BEDTIME SUBQ Insulin Human Lispro (HUMALOG) 0 AC HS SUBQ Dextrose/Water (DEXTROSE 10% IN WATER) 125 ML ASDIR PRN IV (CKD) Dextrose/Water (DEXTROSE 10% IN WATER) 250 ML ASDIR PRN IV (CKD) Glucagon (GLUCAGON) 1 MG ASDIR PRN IM Amiodarone HCl (CORDARONE) 200 MG BID PO Furosemide (LASIX 40 mg/4 mL INJECTION) 40 MG BID 9A 5P IV Acetazolamide (DIAMOX) 500 MG Q12HR IV Sterile Water (WATER FOR INJECTION) 5 ML ASDIR PRN IV Sterile Water (WATER FOR INJECTION) 5 ML ASDIR PRN IV Sodium Chloride (SODIUM CHLORIDE) 4 ML RTBID NEB Melatonin (Melatonin) 3 MG BEDTIME PO Sodium Chloride (SODIUM CHLORIDE) 10 ML BID IV Sodium Chloride (SODIUM CHLORIDE) 10 ML ASDIR PRN IV Pantoprazole (PROTONIX) 40 MG DAILY PO Dexmedetomidine/Sodium Chloride (PRECEDEX 1000MCG/NS 250ML) 250 ML ASDIR IV Bisacodyl (DULCOLAX) 10 MG DAILY PRN PRN RECTAL Lactulose (LACTULOSE) 20 GM DAILY PRN PRN PO Magnesium Hydroxide (MILK OF MAGNESIA) 30 ML DAILY PRN PRN PO Aspirin (ASPIRIN) 81 MG DAILY PO Clopidogrel Bisulfate (Plavix) 75 MG DAILY PO Cyanocobalamin (Vitamin B-12 500 mcg tab) 500 MCG DAILY PO Ferrous Sulfate (FERROUS SULFATE) 325 MG DAILY PO Metolazone (metOLazone) 5 MG DAILY PO Polyethylene [...] (CKD) Sodium Chloride (SODIUM CHLORIDE 0.9%) 99 MLAcetylcysteine (MUCOMYST FOR RT) 200 MG RTQ6H NEB Albuterol/Ipratropium (DUONEB) 3 ML RTQ6H NEB Bisacodyl (DULCOLAX) 10 MG ONCE PRN RECTAL Dopamine HCl/Dextrose (DOPamine 400MG/D5W 250ML) 250 ML ASDIR IV Milrinone Lactate/Dextrose (MILRINONE 20MG/D5W 100ML) 100 ML ASDIR IV (CKD) Vasopressin (VASOSTRICT 20 Unit/NS 100ML) 100 ML ASDIR IV (CKD) Acetaminophen (TYLENOL) 650 MG Q4H PRN PRN RECTAL Calcium Chloride (CALCIUM CHLORIDE) 1 GM ASDIR PRN IV Dextrose/Water (DEXTROSE 10% IN WATER) 125 ML ASDIR PRN IV (CKD) Dextrose/Water (DEXTROSE 10% IN WATER) 250 ML ASDIR PRN IV (CKD) Glucagon (GLUCAGON) 1 MG ASDIR PRN IM Magnesium Sulfate (MAGNESIUM SULFATE 4GM/SWFI 100ML) 100 ML ASDIR PRN IV Magnesium Sulfate (MAGNESIUM SULFATE 2GM/SWFI 50ML) 50 ML ASDIR PRN IV Magnesium Sulfate/Dextrose (MAGNESIUM SULFATE 1GM/D5W 100ML) 100 ML ASDIR PRN IV Nitroglycerin/Dextrose (NITROGLYCERIN 50,000MCG/D5W 250ML) 250 ML ASDIR IV Norepinephrine Bitartrate (NOREPINEPHRINE 8 MG/NS 250 ML) 250 ML TITRATE IV Potassium Chloride (KCL 20MEQ/SWFI 100ML) 100 ML ASDIR PRN IV Sodium Bicarbonate (SODIUM BICARBONATE) 50 MEQ ASDIR PRN IV Ondansetron HCl (ZOFRAN) 4 MG Q6H PRN PRN IV ResultsFindings/data:Laboratory Tests 12/31 12/31 0850 0410 Blood Gas [...] Calcium (1.12 - 1.32 MMOL/L) 1.34 H 1.41 H Lactic Acid (0.9 [...] (Auto) (14.0 - 32.0 %) 4.5 L [place] % (Auto) (4.8 - 9.0 %) 8.5 Eos % (Auto) (0.3 - 3.7 %) 1.5 Baso % (Auto) (0.0 - 2.0 %) 0.3 Neut # (Auto) (2.0 - 7.6 x10 3/uL) 6.60 Lymph # (Auto) (1.0 - 3.8 x10 3/uL) 0.35 L [place] # (Auto) (0.1 - 0.8 x10 3/uL) 0.67 Eos # (Auto) (0.0 - 0.2 x10 3/uL) 0.12 Baso # (Auto) (0.0 - 0.2 x10 3/uL) 0.02 Abs Immat Gran (auto) (0.00 - 0.03 x10 3/uL) 0.10 H Add Manual Diff NO Immature Gran % (0.0 - 2.0 %) 1.3 Nucleated RBC % (0 - 0 %) 0.6 H Nucleated RBCs # (Man) (0.0 - 0.1 x10 3/uL) 0.05 Laboratory Tests 12/31/21 0404:[Embedded Image Not Available] 12/30/21 1840:[Embedded Image Not Available] Radiology dataRecent Impressions:CAT SCAN - CT CHEST W/O CONTRAST 12/30 1316 Report Impression - Status: SIGNED Entered: 12/30/2021 4173 IMPRESSION: 1. Bilateral multifocal ground-glass pulmonary opacities with associated interstitial septal thickening. Edema and [...] Small volume anterior mediastinal hematoma/seroma. REFERENCES: Michael Gutirerez, et al., Radiological Society of [place] Expert Consensus Statement on Reporting Chest CT Findings Related to COVID-19. Endorsed by the Society of Thoracic Radiology, the [place] [employer], and RSNA. Published June 07, 2019. Impression By: Catherine Carlisle M.D.RADIOLOGY - XR CHEST 1 V 12/31 0629 Report Impression - Status: SIGNED Entered: 12/31/2021 0708 IMPRESSION: 1. Stable pulmonary opacities with multifocal consolidation and or atelectasis. 2. Stable pleural effusions. 3. Stable postoperative cardiomediastinal silhouette. Impression By: Catherine Carlisle M.D. Free Text Obj NotesFree Text Obj Notes:General appearance: elderly female in no acute distress, interactiveHEENT: atraumatic, normocephalic, moist mucosal membranesNeck: full range of motion, supple/no meningismusCardiovascular: S1S2 regular rate and rhythm, pacedRespiratory: symmetric expansion, no acute respiratory distressAbdomen: soft, obese, non-tender, no distention, no guardingGenitourinary: [place] with clear urineExtremities: pedal pulses palpable, moves all, no clubbing, no cyanosis, BLE edemaMusculoskeletal: normal inspection, no muscle spasmNeuro/[employer]: Alert and oriented, CNII-XII grossly intact, no motor deficitsSkin: dry, intact and clean surgery site Diagnosis, Assessment PlanProblem list/A P: 1. S/P MVR (mitral valve replacement) 2. S/P CABG x 1 3. Postoperative pulmonary dysfunction after cardiac surgery 4. Severe mitral regurgitation 5. CAD (coronary artery disease) 6. CKD (chronic kidney disease) 7. Immunosuppressed status 8. RONA on CPAP 9. Chronic a-fib 10. Crohn disease Free text A P:76-year-old morbidly obese female with history of HTN, HL, IDDM, smoking, RONA onCPAP and home O2 as needed, macular degeneration, Crohn's disease on immunosuppressant medications, and chronic Afib s/p ablation and PPM (on Xarelto), who was admitted recently with heart failure symptoms. Patient underwent elective cardiac cath that showed severe multivessel coronary artery disease notsuitable for percutaneous intervention. 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 She went for surgical revascularization today and preop JORDEN revealed severe mitral regurgitation. After discussing new findings with family, patient underwent MVR (31 Magna valve), CABG x 1 (ROBERTS-LAD), ILAA and pericardectomy on 12/19/2021. Has EF of 45%. Crystalloid 1 L, urine output 700, Cell Saver 700. She is a-paced at baseline. Surgery went well and patient was transferred to CVICU postop in a stable surgical condition. She is currentlyintubated on 2 mics of epinephrine, 2 mics of Levophed and insulin drip. CI 3.0,SvO2 in 60%s, CVP 15 and PAP in 60s. Remains neuro intact, multimodal pain control, avoid opiatesPatient is on BiPAP at night for underlying RONA home CPAP as needed 14-18.She is on nasal cannula [address] shows worsening pulmonary edema and atelectasis. Also has pleural effusions ultrasound not a big pocket to safely tap.Duo nebs and Mucomyst. Encourage incentive spirometry. Family at bedside during spirometry with her.Patient is being diuresed with Lasix twice daily and Diamox twice daily. She does have respiratory acidosis with metabolic alkalosis which is balanced with apH of 7.39.Renal followingWhite count is stable. No signs of infection or fever. Continue to monitor. Hemoglobin is stable.Continue beta-delma and amiodarone. Paced rhythmPatient is on insulin drip for control of her sugars. Increase Lantus to 30 twice daily.Patient still has [place] for accurate ins and outs Total critical care time 40 minutes 12/29Waxing and waning mental status, continue melatonin at bedtimeContinue supplemental oxygen and titrate FiO2 to keep saturation more than 90%, on 6 L nasal cannula, alternating with BiPAP 18/7 and 30%Continue follow ABGs and chest x-raysInhaled bronchodilators as neededEncourage incentive spirometryWhite count is stable. No signs of infection or fever. Continue to monitor. Hemoglobin is stable.Continue beta-delma and amiodarone. Diuresis with Bumex 500 mg every 12 hours. Received 1 dose of Lasix IV x1 earlier in the morningMonitor kidney function and trend creatinineMonitor and replete electrolytesStrict I O'sCardiac diet with bowel regimenDecreased Lantus insulin to 20 5 in the morning and 20 at nightContinue monitoring blood glucoseVTE prophylaxisStress ulcer prophylaxisDiscussed with ICU team, CV [facility]Critical [facility] 39 minutes 12/30Neuro status appears at baseline, avoid narcotics and sedatives, monitor for PI5lzmznvyyGqzg well on HFNC, wean O2 for goal sats in high 80s, obtain ABG as needed, BiPAP use for uncompensated hypercapnia, CXR and CT chest reviewedBlood pressures appear controlled, continue cardiac medicationsCreatinine appears stable, continue diuresis, monitor urine outputTolerating oral diet, has BM/BR, replete hypokalemiaNo fevers or leukocytosis, completed antibiotic course for UTIHemoglobin low but stable, no evidence of active bleedBlood glucose control with SSI and LantusEncourage PT/OT and out of bed as tolerated, plan for IPRDVT and GI prophylaxis with DAPT and PPI 12/31Neuro intact, avoid narcotics and sedatives, monitor for CO2 narcosisSats drops on RA, keep NC for goal sats in high 80s, ABG and BiPAP as needed, CXR reviewedBlood pressures appear controlled, continue cardiac medications, on BB, amiodarone and statinCreatinine remains stable, good urine output, continue diuresis per renalTolerating oral diet, bowel regimen, nutrition support, replete hypokalemiaNo fevers or leukocytosis, completed antibiotic course for UTIHemoglobin appears stable, no evidence of active bleedBlood glucose control with SSI and LantusEncourage PT/OT and out of bed as tolerated, plan for IPRDVT and GI prophylaxis with DAPT and PPI Consultants: cardiology, cardiovascular surgeryPlan discussed with: patient, consultants, nurse, interdisc care team, pharmacy/pharmacistCritical care time: Minutes: 37 at 2241 RPT #:[id number] OF REPORTPRProgress xtgh0277-03-65U31:03:00G.[id number] e for patient unmjOUFEVQEESIDGSO2775-19-32G43:41:23 HC ACL 2021-12-30 20:47:00 [id number] c4atBt/UwhCg ol8FRJNuEZ4HBFi9RfB1MCdE3043-18-32M28:47:[address] [facility] ([facility]Rehab Progress NoteREPORT#:[id number] REPORT STATUS: SignedDATE:12/30/21 TIME: 2046 PATIENT: KIAH GILES UNIT #: [id number]#: [id number] [address] [birth year] AGE: 76 SEX: F ATTEND: Jeffry More MDADM AUTHOR: Alicia Pantoja NP * ALL edits or amendments must be made on the electronic/computer document * SubjectiveChief complaint:rehab follow-upOOB in chair with N/Cvery fatigue appearanceSignificant generalized weakness, fatigueNo GOLD/N/V/D14 systems reviewed and negative except that mentioned above. Objective Physical ExamPsych: alert, oriented x 3HEENT: anicteric, mucosal membranes moistNeck: supple, no JVDCardiovascular: regular rate rhythm, no murmurRespiratory: diminished breath sounds (bases ), on oxygen (Hi flow O2 )Abdomen: bowel sounds present, non-distended, soft, non-tenderSkin: dry, intact, no rash, incisions D/IMusculoskeletal - general: Musculoskeletal - general: swelling (BLE +3), moving all ext AGNeuro/[employer]: alert, 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, normal speech, no motor deficits, no sensory deficits Diagnosis, Assessment PlanFree Text A P:Critical illness myopathyStatus post CABG x1 Status post MVRGeneralized weaknessDeconditioningImpaired ADLs, mobility, gait, balance and endurance postoperative anemiaMorbid obesityCADHLD Crohn's diseaseChronic A. fibHypoxic respiratory failure Plan:Continue PT/OTOut of bed to chairWork on strength, bed mobility, transfers, gaitIncrease enduranceFall precautionsMonitor p.o. intake and nutritionStrict decubitus precautionsMonitor anemiaAdvance therapies as toleratedTolerating regular dietContinue diuresis- monitor strict I OsLasix drip discontinued. Started on IV Lasix and DiamoxWeigh patient dailyAdvance therapies as tolerated CLOF with therapyRW 100ft with 6 rest breaks MICHEAL O2 sats 88-91% on 5L N/C increased to 6L duringtherapy Will eventually need IRF when medically ready. CLOF with therapyAmbulation 20 feet, 5 feet, 15 feet x 2 moderate assistance with rolling walker,shuffling gait short steps head down TT: 34 mins, reviewing chart, notes, labs, meds, therapy notes, discussed medical mgt, and rehab poc, goals. Answered all questions Rehab attestation:Face to face exam completed. Treatment plan discussed with patient. at [facility] #:[id number] OF REPORTPRProgress ukby3228-13-10T48:47:00G.[id number] e for patient vkbqFUSGNPBDLDAHQO0083-16-98N69:50:30 ACL 2021-12-30 19:58:00 [id number] DtlM0JTgNqO+ CoRJVXXE+/AdtkA/cOyfCVeW2395-12-21E62:58:00 [facility] CenterNephrology Progress NoteREPORT#:[id number] REPORT STATUS: SignedDATE:12/30/21 TIME: 1957 PATIENT: KIAH GILES UNIT #: [id number]#: [id number] ROOM[facility]BED: [facility] [place]DOB: [birth year] AGE: 76 SEX: F ATTEND: Jeffry More MDADM AUTHOR: Suki Fuchs MD * ALL edits or amendments must be made on the electronic/computer document * SubjectiveChief complaint:chest painHPI:This is a 76-year-old female who has past medical history of hypertension, diabetes, coronary artery disease, atrial fibrillation who presented with worsening shortness of breath and on further work-up was 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 She was withnormal kidney function prior to surgery and after her surgery she began to develop oliguria. Her procedure was done without any complications but after her surgery she did require pressor support for hypotension and she was intubated for respiratory acidosis and hypoxia and she was treated with vancomycin for infection treatment. When she was seen this morning she continued to have hypotension and her heart rate was paced by her permanent pacemaker and her urine output was 20 to 30/h. Her family at bedside denied anyhistory of kidney disease, kidney stone, chronic NSAID use or any urinary complaints. They also endorse that her blood pressure and diabetes were mostly controlled. 12/30Today she was comfortable, volume improving with IV lasix. Objective GeneralVS/I O:Vital Signs: Date Time Temp Pulse Resp B/P B/P Pulse O2 O2 Flow FiO2 Mean Ox Delivery Rate 12/30 0815 35.9 73 22 127/44 70 82 12/30 0900 35.9 72 26 133/43 70 12/30 0830 35.8 73 31 121/45 69 79 12/30 0815 35.8 76 28 140/49 79 97 10/ 0800 35.8 72 21 136/47 75 94 12/30 0748 98 High flow 5 nasal cannula 12/30 0745 35.8 75 22 135/47 76 98 / 0730 High flow 5 nasal cannula 12/30 0730 35.8 69 19 108/47 69 96 10/ 0715 35.9 75 18 100/51 72 97 10/ 0700 35.9 75 19 145/61 86 100 / 0636 36.0 71 12 124/40 64 100 10/ 0630 36.0 69 12 112/37 58 100 10/ 0615 36.0 106 22 144/49 78 100 [...] 87 100 12/29 2347 76 100 40 12/29 2345 36.5 75 24 141/53 84 100 12/29 2330 36.6 75 33 138/51 80 88 12/29 2315 36.5 69 26 128/47 73 100 12/29 2300 100/49 70 12/29 2300 36.5 70 26 103/39 58 100 12/29 2245 36.5 69 22 118/47 69 100 12/29 2230 99/49 71 12/29 2230 36.4 69 26 104/38 56 100 12/29 2229 100/50 72 12/29 2229 36.4 69 23 106/38 57 100 12/29 2228 107/53 76 12/29 2228 36.4 69 25 109/39 59 100 12/29 2227 113/52 76 12/29 2227 36.4 69 24 112/40 61 100 12/29 2226 114/56 80 12/29 2226 36.4 69 23 114/42 63 100 12/29 2215 36.4 72 25 108/36 56 100 12/29 2200 36.3 72 27 127/43 67 100 12/29 2145 36.3 71 19 115/39 59 100 12/29 2135 71 100 40 12/29 2130 36.2 71 19 129/41 66 100 12/295 36.2 71 25 133/42 69 94 12/29 [...] scale Measurement Method PATIENT WEIGHT: Weight (lb): 270Weight (oz): 15.17Weight (kg): 122.900 Physical ExamGeneral appearance: alert, awake, orientedHead/eyes: atraumatic, normocephalicENT: moist mucous membranes, normal noseNeck: no JVD, no lymphadenopathyCardiovascular: normal heart sounds, regular rate and rhythmRespiratory: aerating well, clear to auscultationAbdomen: soft, no pulsatile massGenitourinary: urinary catheterExtremities: no gangrene, no swelling Treatment Prophylaxis Treatment ProphylaxisDrain(s)/tube(s): Drain(s)/tube(s): chest (x3) Diagnosis, Assessment PlanFree Text A P:This is a 76-year-old female known to have hypertension, diabetes, atrial fibrillation, s/p permanent pacemaker and history of ablation presenting with shortness of breath and 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 Nephrology is following for: 1. Acute kidney injury: Most likely it is prerenal (cardiorenal), she has been hypotensive postoperatively with requirement for pressor support and inotropic support. Plan is to increase inotropic support or pressor support to bring meanarterial pressure above 65 and give albumin with Lasix to see if it helps him diurese. If he does not respond to higher dose Lasix with albumin then I will consider starting him on CRRT to prevent hyper volemia. 2. Hypervolemia: Plan is to give Lasix and if he does not respond to start him on CRRT for extra fluid removal. 3. His electrolytes were all reviewed to be in normal range plan was to monitorand replace as needed. 4. He was receiving vancomycin so plan was to monitor vancomycin trough levels to prevent ATN. 5/ Metabolic alkalosis secondary to diuretics : Plan to give acetazoleamide if worsening. . Acute kidney injury: Resolved, she is responding to lasix. 2. Hypervolemia: Plan to continue lasix as tolerated.Today she was on low dose twice daily lasix. 3. Hypokalemia/hypomagnesemia:secondary to diuretics, plan was to monitor and replace as needed. 4. She was receiving vancomycin so plan was to monitor vancomycin trough levelsto prevent ATN. 5/ Metabolic alkalosis secondary to diuretics : Plan to give acetazoleamide and monitor closely. 12/28 1. Acute kidney injury: Resolved, she is responding to lasix. 2. Hypervolemia: Plan to continue lasix as tolerated.Today she was on low dose twice daily lasix. 3. Hypokalemia/hypomagnesemia:secondary to diuretics, plan was to monitor and replace as needed. 4. She was receiving vancomycin so plan was to monitor vancomycin trough levelsto prevent ATN. 5/ Metabolic alkalosis secondary to diuretics : Plan to give acetazoleamide and monitor closely. 12/28 1. Acute kidney injury: Resolved, she is responding to lasix. 2. Hypervolemia: Plan to continue lasix as tolerated.Today she was on low dose twice daily lasix. 3. Hypokalemia/hypomagnesemia:secondary to diuretics, plan was to monitor and replace as needed. 4. She was receiving vancomycin so plan was to monitor vancomycin trough levelsto prevent ATN. 5/ Metabolic alkalosis secondary to diuretics : Plan to give acetazoleamide and monitor closely. 12/29 1. Acute kidney injury: Resolved, she is responding to lasix. 2. Hypervolemia: Plan to continue lasix as tolerated.Today she was on low dose twice daily lasix. 3. Hypokalemia/hypomagnesemia:secondary to diuretics, plan was to monitor and replace as needed. 4. She was receiving vancomycin so plan was to monitor vancomycin trough levelsto prevent ATN. 5/ Metabolic alkalosis secondary to diuretics : Plan to give acetazoleamide andmonitor closely. 12/30 1. Acute kidney injury: Resolved, she is responding to lasix. 2. Hypervolemia: Plan to continue lasix as tolerated.Today she was on low dose twice daily lasix. 3. Hypokalemia/hypomagnesemia:secondary to diuretics, plan was to monitor and replace as needed. 4. Metabolic alkalosis secondary to diuretics : Plan to continue acetazoleamide and monitor closely. Consultants: cardiology, cardiovascular surgery at [address] [facility] #:[id number] OF REPORTPRProgress [id number]:58:00G.[id number] e for patient fegkFRQSXMQPBUPAYT6349-91-85O25:02:07 ACL 2021-12-30 16:50:00 [id number] SVb5zqLEuea/ dP/lO24GHjZnbRYOZCqttCE57148-14-89T41:50:[address] [facility] ([facility])Critical Care Progress NoteREPORT#:[id number] REPORT STATUS: SignedDATE:12/30/21 TIME: 1650 PATIENT: KIAH GILES UNIT #: [id number]#: [id number] [address] [birth year] AGE: 76 SEX: F ATTEND: Jeffry More MDADM AUTHOR: Jd Alva MD * ALL edits or amendments must be made on the electronic/computer document * SubjectiveChief complaint:CABG/MVRHPI:76-year-old morbidly obese female with history of HTN, HL, IDDM, smoking, RONA onCPAP and home O2 as needed, macular degeneration, Crohn's disease on immunosuppressant medications, and chronic Afib s/p ablation and PPM (on Xarelto), who was admitted recently with heart failure symptoms. Patient underwent elective cardiac cath that showed severe multivessel coronary artery disease notsuitable for percutaneous intervention. 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 She went for surgical revascularization today and preop JORDEN revealed severe mitral regurgitation. After discussing new findings with family, patient underwent MVR (31 Magna valve), CABG x 1 (ROBERTS-LAD), ILAA and pericardectomy on 12/19/2021. Has EF of 45%. Crystalloid 1 L, urine output 700, Cell Saver 700. She is a-paced at baseline. Surgery went well and patient was transferred to CVICU postop in a stable surgical condition. She is currentlyintubated on 2 mics of epinephrine, 2 mics of Levophed and insulin drip. CI 3.0,SvO2 in 60%s, CVP 15 and PAP in 60s. Comments:Out of bed in the chairIntermittently on BiPAPDiuresing, urine output 1 LTolerating oral diet, had BM Objective GeneralVS/I OLast Documented: Result Date Time Pulse Ox 82 10/18 0915 B/P 127/44 10/18 0915 B/P Mean 70 12/30 914 Temp 96.6 12/30 914 Pulse 73 12/30 914 Resp 22 12/30 914 O2 Delivery High flow nasal cannula 12/31 747 O2 Flow Rate 5 12/31 747 FiO2 40 12/30 0320 24 hour I O ending at 0700: 12/30 0700 12/29 1900 Intake Total 480 Output Total 1005 1275 Balance -525 -1275 Intake, Oral 480 Output, Urine 1005 1275 Patient 122.9 kg Weight Weight Standing scale Measurement Method PATIENT WEIGHT: Weight (lb): 270Weight (oz): 15.17Weight (kg): 122.900 Medications:Active Meds + DC'd Last 24 HrsPotassium Chloride (POTASSIUM CHLORIDE 20MEQ TAB.ER) 40 MEQ DAILY PRN PRN PO Potassium Chloride (K-JN 20 MEQ PACKET) 40 MEQ NOW ONE FEED-TUBE (DC) Insulin Glargine (Lantus/Semglee) 30 UNIT DAILY SUBQ Potassium Chloride (POTASSIUM CHLORIDE 20MEQ TAB.ER) 40 MEQ ONCE ONE PO (DC) Insulin Glargine (Lantus/Semglee) 20 UNIT BEDTIME SUBQ Insulin Human Lispro (HUMALOG) 0 AC HS SUBQ Dextrose/Water (DEXTROSE 10% IN WATER) 125 ML ASDIR PRN IV (CKD) Dextrose/Water (DEXTROSE 10% IN WATER) 250 ML ASDIR PRN IV (CKD) Glucagon (GLUCAGON) 1 MG ASDIR PRN IM Amiodarone HCl (CORDARONE) 200 MG BID PO Furosemide (LASIX 40 mg/4 mL INJECTION) 40 MG BID 9A 5P IV Acetazolamide (DIAMOX) 500 MG Q12HR IV Sterile Water (WATER FOR INJECTION) 5 ML ASDIR PRN IV Sterile Water (WATER FOR INJECTION) 5 ML ASDIR PRN IV Sodium Chloride (SODIUM CHLORIDE) 4 ML RTBID NEB Melatonin (Melatonin) 3 MG BEDTIME PO Sodium Chloride (SODIUM CHLORIDE) 10 ML BID IV Sodium Chloride (SODIUM CHLORIDE) 10 ML ASDIR PRN IV Pantoprazole (PROTONIX) 40 MG DAILY PO Dexmedetomidine/Sodium Chloride (PRECEDEX 1000MCG/NS 250ML) 250 ML ASDIR IV Bisacodyl (DULCOLAX) 10 MG DAILY PRN PRN RECTAL Lactulose (LACTULOSE) 20 GM DAILY PRN PRN PO Magnesium Hydroxide (MILK OF MAGNESIA) 30 ML DAILY PRN PRN PO Aspirin (ASPIRIN) 81 MG DAILY PO Clopidogrel Bisulfate (Plavix) 75 MG DAILY PO Cyanocobalamin (Vitamin B-12 500 mcg tab) 500 MCG DAILY PO Ferrous Sulfate (FERROUS SULFATE) 325 MG DAILY PO Metolazone (metOLazone) 5 MG DAILY PO Polyethylene [...] (CKD) Sodium Chloride (SODIUM CHLORIDE 0.9%) 99 MLAcetylcysteine (MUCOMYST FOR RT) 200 MG RTQ6H NEB Albuterol/Ipratropium (DUONEB) 3 ML RTQ6H NEB Bisacodyl (DULCOLAX) 10 MG ONCE PRN RECTAL Dopamine HCl/Dextrose (DOPamine 400MG/D5W 250ML) 250 ML ASDIR IV Milrinone Lactate/Dextrose (MILRINONE 20MG/D5W 100ML) 100 ML ASDIR IV (CKD) Vasopressin (VASOSTRICT 20 Unit/NS 100ML) 100 ML ASDIR IV (CKD) Acetaminophen (TYLENOL) 650 MG Q4H PRN PRN RECTAL Calcium Chloride (CALCIUM CHLORIDE) 1 GM ASDIR PRN IV Dextrose/Water (DEXTROSE 10% IN WATER) 125 ML ASDIR PRN IV (CKD) Dextrose/Water (DEXTROSE 10% IN WATER) 250 ML ASDIR PRN IV (CKD) Glucagon (GLUCAGON) 1 MG ASDIR PRN IM Magnesium Sulfate (MAGNESIUM SULFATE 4GM/SWFI 100ML) 100 ML ASDIR PRN IV Magnesium Sulfate (MAGNESIUM SULFATE 2GM/SWFI 50ML) 50 ML ASDIR PRN IV Magnesium Sulfate/Dextrose (MAGNESIUM SULFATE 1GM/D5W 100ML) 100 ML ASDIR PRN IV Nitroglycerin/Dextrose (NITROGLYCERIN 50,000MCG/D5W 250ML) 250 ML ASDIR IV Norepinephrine Bitartrate (NOREPINEPHRINE 8 MG/NS 250 ML) 250 ML TITRATE IV Potassium Chloride (KCL 20MEQ/SWFI 100ML) 100 ML ASDIR PRN IV Sodium Bicarbonate (SODIUM BICARBONATE) 50 MEQ ASDIR PRN IV Ondansetron HCl (ZOFRAN) 4 MG Q6H PRN PRN IV ResultsFindings/data:Laboratory Tests 12/30 12/30 0843 0449 Blood Gas [...] Tests 12/30 12/30 12/30 12/30 12/29 1159 0824 0449 444 2011 Chemistry Sodium (134 - [...] 110 MG/DL) 197 H Laboratory Tests 12/30 0445 Hematology WBC (4.5 - 11.0 x10 [...] (Auto) (14.0 - 32.0 %) 4.9 L [place] % (Auto) (4.8 - 9.0 %) 8.6 Eos % (Auto) (0.3 - 3.7 %) 1.8 Baso % (Auto) (0.0 - 2.0 %) 0.2 Neut # (Auto) (2.0 - 7.6 x10 3/uL) 7.24 Lymph # (Auto) (1.0 - 3.8 x10 3/uL) 0.43 L [place] # (Auto) (0.1 - 0.8 x10 3/uL) 0.75 Eos # (Auto) (0.0 - 0.2 x10 3/uL) 0.16 Baso # (Auto) (0.0 - 0.2 x10 3/uL) 0.02 Abs Immat Gran (auto) (0.00 - 0.03 x10 3/uL) 0.15 H Add Manual Diff NO Immature Gran % (0.0 - 2.0 %) 1.7 Nucleated RBC % (0 - 0 %) 0.5 H Nucleated RBCs # (Man) (0.0 - 0.1 x10 3/uL) 0.04 Laboratory Tests 12/30/21 0445:[Embedded Image Not Available] Radiology dataRecent Impressions:RADIOLOGY - XR CHEST 1 V 12/30 0612 Report Impression - Status: SIGNED Entered: 12/30/2021 0706 IMPRESSION: 1. Bilateral pulmonary opacities with multifocal airspace disease. Progression of disease in the right upper lobe. Edema and pneumonia in the differential. 2. Stable pleural effusions with bibasilar atelectasis and or airspace disease. Impression By: Catherine Carlisle M.D.CAT SCAN - CT CHEST W/O CONTRAST 12/30 1316 Report Impression - Status: SIGNED Entered: 12/30/2021 1433 IMPRESSION: 1. Bilateral multifocal ground-glass pulmonary opacities with associated interstitial septal thickening. Edema and [...] by the Society of Thoracic Radiology, the [employer] [place] [employer], and RSNA. Published June 07, 2019. Impression By: Catherine Carlisle M.D. Free Text Obj NotesFree Text Obj Notes:General appearance: elderly female in no acute distress, interactiveHEENT: atraumatic, normocephalic, moist mucosal membranesNeck: full range of motion, supple/no meningismusCardiovascular: S1S2 regular rate and rhythm, pacedRespiratory: symmetric expansion, no acute respiratory distressAbdomen: soft, obese, non-tender, no distention, no guardingGenitourinary: [place] with clear urineExtremities: pedal pulses palpable, moves all, no clubbing, no cyanosis, BLE edemaMusculoskeletal: normal inspection, no muscle spasmNeuro/[employer]: Alert and oriented, CNII-XII grossly intact, no motor deficitsSkin: dry, intact and clean surgery site Diagnosis, Assessment PlanProblem list/A P: 1. S/P MVR (mitral valve replacement) 2. S/P CABG x 1 3. Postoperative pulmonary dysfunction after cardiac surgery 4. Severe mitral regurgitation 5. CAD (coronary artery disease) 6. CKD (chronic kidney disease) 7. Immunosuppressed status 8. RONA on CPAP 9. Chronic a-fib 10. Crohn disease Free text A P:76-year-old morbidly obese female with history of HTN, HL, IDDM, smoking, RONA onCPAP and home O2 as needed, macular degeneration, Crohn's disease on immunosuppressant medications, and chronic Afib s/p ablation and PPM (on Xarelto), who was admitted recently with heart failure symptoms. Patient underwent elective cardiac cath that showed severe multivessel coronary artery disease notsuitable for percutaneous intervention. 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 She went for surgical revascularization today and preop JORDEN revealed severe mitral regurgitation. After discussing new findings with family, patient underwent MVR (31 Magna valve), CABG x 1 (ROBERTS-LAD), ILAA and pericardectomy on 12/19/2021. Has EF of 45%. Crystalloid 1 L, urine output 700, Cell Saver 700. She is a-paced at baseline. Surgery went well and patient was transferred to CVICU postop in a stable surgical condition. She is currentlyintubated on 2 mics of epinephrine, 2 mics of Levophed and insulin drip. CI 3.0,SvO2 in 60%s, CVP 15 and PAP in 60s. Remains neuro intact, multimodal pain control, avoid opiatesPatient is on BiPAP at night for underlying RONA home CPAP as needed 14-18.She is on nasal cannula [address] shows worsening pulmonary edema and atelectasis. Also has pleural effusions ultrasound not a big pocket to safely tap.Duo nebs and Mucomyst. Encourage incentive spirometry. Family at bedside during spirometry with her.Patient is being diuresed with Lasix twice daily and Diamox twice daily. She does have respiratory acidosis with metabolic alkalosis which is balanced with apH of 7.39.Renal followingWhite count is stable. No signs of infection or fever. Continue to monitor. Hemoglobin is stable.Continue beta-delma and amiodarone. Paced rhythmPatient is on insulin drip for control of her sugars. Increase Lantus to 30 twice daily.Patient still has [place] for accurate ins and outs Total critical care time 40 minutes 12/29Waxing and waning mental status, continue melatonin at bedtimeContinue supplemental oxygen and titrate FiO2 to keep saturation more than 90%, on 6 L nasal cannula, alternating with BiPAP 18/7 and 30%Continue follow ABGs and chest x-raysInhaled bronchodilators as neededEncourage incentive spirometryWhite count is stable. No signs of infection or fever. Continue to monitor. Hemoglobin is stable.Continue beta-delma and amiodarone. Diuresis with Bumex 500 mg every 12 hours. Received 1 dose of Lasix IV x1 earlier in the morningMonitor kidney function and trend creatinineMonitor and replete electrolytesStrict I O'sCardiac diet with bowel regimenDecreased Lantus insulin to 20 5 in the morning and 20 at nightContinue monitoring blood glucoseVTE prophylaxisStress ulcer prophylaxisDiscussed with ICU team, [facility] 39 minutes 12/30Neuro status appears at baseline, avoid narcotics and sedatives, monitor for [id number] well on HFNC, wean O2 for goal sats in high 80s, obtain ABG as needed, BiPAP use for uncompensated hypercapnia, CXR and CT chest reviewedBlood pressures appear controlled, continue cardiac medicationsCreatinine appears stable, continue diuresis, monitor urine outputTolerating oral diet, has BM/BR, replete hypokalemiaNo fevers or leukocytosis, completed antibiotic course for UTIHemoglobin low but stable, no evidence of active bleedBlood glucose control with SSI and LantusEncourage PT/OT and out of bed as tolerated, plan for IPRDVT and GI prophylaxis with DAPT and PPI Consultants: cardiology, cardiovascular surgeryPlan discussed with: patient, consultants, nurse, interdisc care team, pharmacy/pharmacistCritical care time: Minutes: 37 at 2241 RPT #:[id number] OF REPORTPRProgress [id number]:50:00G.[id number] e for patient [id number]:41:13 HC ACL 2021-12-30 14:53:00 [id number]+[id number]/t vt+jwa+ZMUSd [id number]/sO1DWEtY4123-75-41J56:53:[address] [facility] ([facility]Nephrology Progress NoteREPORT#:[id number] REPORT STATUS: SignedDATE:12/30/21 TIME: 1453 PATIENT: KIAH GILES UNIT #: [id number]#: [id number] [address] [birth year] AGE: 76 SEX: F ATTEND: Jeffry More AUTHOR: Suki Fuchs MD * ALL edits or amendments must be made on the electronic/computer document * SubjectiveChief complaint:chest painHPI:This is a 76-year-old female who has past medical history of hypertension, diabetes, coronary artery disease, atrial fibrillation who presented with worsening shortness of breath and on further work-up was 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 She was withnormal kidney function prior to surgery and after her surgery she began to develop oliguria. Her procedure was done without any complications but after her surgery she did require pressor support for hypotension and she was intubated for respiratory acidosis and hypoxia and she was treated with vancomycin for infection treatment. When she was seen this morning she continued to have hypotension and her heart rate was paced by her permanent pacemaker and her urine output was 20 to 30/h. Her family at bedside denied anyhistory of kidney disease, kidney stone, chronic NSAID use or any urinary complaints. They also endorse that her blood pressure and diabetes were mostly controlled. day she was eating in a chair and appeared comfortable. Objective Physical ExamHead/eyes: atraumatic, normocephalicENT: moist mucous membranes, normal noseNeck: no JVD, no lymphadenopathyCardiovascular: normal heart sounds, regular rate and rhythmRespiratory: aerating well, clear to auscultationAbdomen: soft, no pulsatile massGenitourinary: urinary catheterExtremities: no gangrene, no swelling Treatment Prophylaxis Treatment ProphylaxisDrain(s)/tube(s): Drain(s)/tube(s): chest (x3) Diagnosis, Assessment PlanFree Text A P:This is a 76-year-old female known to have hypertension, diabetes, atrial fibrillation, s/p permanent pacemaker and history of ablation presenting with shortness of breath and 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 Nephrology is following for: 1. Acute kidney injury: Most likely it is prerenal (cardiorenal), she has been hypotensive postoperatively with requirement for pressor support and inotropic support. Plan is to increase inotropic support or pressor support to bring meanarterial pressure above 65 and give albumin with Lasix to see if it helps him diurese. If he does not respond to higher dose Lasix with albumin then I will consider starting him on CRRT to prevent hyper volemia. 2. Hypervolemia: Plan is to give Lasix and if he does not respond to start him on CRRT for extra fluid removal. 3. His electrolytes were all reviewed to be in normal range plan was to monitorand replace as needed. 4. He was receiving vancomycin so plan was to monitor vancomycin trough levels to prevent ATN. . Acute kidney injury: Most likely it is prerenal (cardiorenal), she has been hypotensive postoperatively with requirement for pressor support and inotropic support. She responded to Lasix after her blood pressure improved with higher dose vasopressin and she was given albumin. Plan was to continue twice a day Lasix and albumin for hypervolemia. 2. Hypervolemia: Plan is to give Lasix with albumin twice daily and increase dose if needed. 3. His electrolytes were all reviewed to be in normal range plan was to monitorand replace as needed. 4. He was receiving vancomycin so plan was to monitor vancomycin trough levels to prevent ATN. 12/22 1. Acute kidney injury: Most likely it is prerenal (cardiorenal), she has been hypotensive postoperatively with requirement for pressor support and inotropic support. She responded to Lasix after her blood pressure improved with higher dose vasopressin and she was given albumin. Plan was to continue Lasix and albumin for hypervolemia.Plan to increase dose to reach goal of 1 L negative Q12H. 2. Hypervolemia: Plan is to give Lasix with albumin and increase dose if needed. 3. His electrolytes were all reviewed to be in normal range plan was to monitorand replace as needed. 4. He was receiving vancomycin so plan was to monitor vancomycin trough levels to prevent ATN. 12/23 1. Acute kidney injury: Most likely it is prerenal (cardiorenal), she has been hypotensive postoperatively with requirement for pressor support and inotropic support. She responded to Lasix after her blood pressure improved with higher dose vasopressin and she was given albumin. Plan was to continue Lasix and albumin for hypervolemia.Plan to increase dose to reach goal of 1 L negative Q12H. 2. Hypervolemia: Plan is to give Lasix with albumin and increase dose if needed. 3. Her electrolytes were all reviewed to be in normal range plan was to monitor and replace as needed. 4. She was receiving vancomycin so plan was to monitor vancomycin trough levelsto prevent ATN. 5/ Metabolic alkalosis secondary to diuretics : Plan to give acetazoleamide if worsening. 12/24 1. Acute kidney injury: Resolved, she is responding to lasix. 2. Hypervolemia: Plan to continue lasix as tolerated. 3. Her electrolytes were all reviewed to be in normal range plan was to monitor and replace as needed. 4. She was receiving vancomycin so plan was to monitor vancomycin trough levelsto prevent ATN. 5/ Metabolic alkalosis secondary to diuretics : Plan to give acetazoleamide if worsening. 12/25 1. Acute kidney injury: Resolved, she is responding to lasix. 2. Hypervolemia: Plan to continue lasix as tolerated.Today it was held for metabolic alkalosis. 3. Her electrolytes were all reviewed to be in normal range plan was to monitor and replace as needed. 4. She was receiving vancomycin so plan was to monitor vancomycin trough levelsto prevent ATN. 5/ Metabolic alkalosis secondary to diuretics : Plan to give acetazoleamide if worsening. 12/26 1. Acute kidney injury: Resolved, she is responding to lasix. 2. Hypervolemia: Plan to continue lasix as tolerated.Today she was on low dose drip. 3. Her electrolytes were all reviewed to be in normal range plan was to monitor and replace as needed. 4. She was receiving vancomycin so plan was to monitor vancomycin trough levelsto prevent ATN. 5/ Metabolic alkalosis secondary to diuretics : Plan to give acetazoleamide if worsening. . Acute kidney injury: Resolved, she is responding to lasix. 2. Hypervolemia: Plan to continue lasix as tolerated.Today she was on low dose twice daily lasix. 3. Hypokalemia/hypomagnesemia:secondary to diuretics, plan was to monitor and replace as needed. 4. She was receiving vancomycin so plan was to monitor vancomycin trough levelsto prevent ATN. 5/ Metabolic alkalosis secondary to diuretics : Plan to give acetazoleamide and monitor closely. 12/28 1. Acute kidney injury: Resolved, she is responding to lasix. 2. Hypervolemia: Plan to continue lasix as tolerated.Today she was on low dose twice daily lasix. 3. Hypokalemia/hypomagnesemia:secondary to diuretics, plan was to monitor and replace as needed. 4. She was receiving vancomycin so plan was to monitor vancomycin trough levelsto prevent ATN. 5/ Metabolic alkalosis secondary to diuretics : Plan to give acetazoleamide and monitor closely. 12/28 1. Acute kidney injury: Resolved, she is responding to lasix. 2. Hypervolemia: Plan to continue lasix as tolerated.Today she was on low dose twice daily lasix. 3. Hypokalemia/hypomagnesemia:secondary to diuretics, plan was to monitor and replace as needed. 4. She was receiving vancomycin so plan was to monitor vancomycin trough levelsto prevent ATN. 5/ Metabolic alkalosis secondary to diuretics : Plan to give acetazoleamide and monitor closely. 12/29 1. Acute kidney injury: Resolved, she is responding to lasix. 2. Hypervolemia: Plan to continue lasix as tolerated.Today she was on low dose twice daily lasix. 3. Hypokalemia/hypomagnesemia:secondary to diuretics, plan was to monitor and replace as needed. 4. She was receiving vancomycin so plan was to monitor vancomycin trough levelsto prevent ATN. 5/ Metabolic alkalosis secondary to diuretics : Plan to give acetazoleamide andmonitor closely. Consultants: cardiology, cardiovascular surgery at 2326 RPT #:[id number] OF REPORTPRProgress [id number]:53:00G.[id number] e for patient mefwJRANZCBIRCBMOW8712-09-95L66:27:02 HC ACL 2021-12-30 12:15:00 [id number]+D6CnN maAAF1vnkOhI Nz8OoCBjnCPh1wvkbkVHPPDS7772-90-06V36:15:00 [facility]Hospital[facility] Progress NoteREPORT#:[id number] REPORT STATUS: SignedDATE:12/30/21 TIME: 1215 PATIENT: KIAH GILES UNIT #: [id number]#: [id number] [address] [birth year] AGE: 76 SEX: F ATTEND: Jeffry More AUTHOR: Meryl Rosa MD * ALL edits or amendments must be made on the electronic/computer document * SubjectiveChief complaint:she sit on the chair . less edema acute respiratory failure --post CABGHPI: 76 years old female with PMH of macular degeneration, obesity, obstructive sleepapnea (CPAP at home), former smoker, hypertension, hyperlipidemia, diabetes, Crohn's disease, chronic atrial fibrillation status post 3 ablations in the past(on Xarelto), pacemaker placement is admitted to the hospital post cardiac cath . she need CABG . she had sob for years . sob got worse . she was admitted to the hospital [place] . she had cath 3 weeks ago . she was reffered to here for stents placement . she had cath yesterday . it show multiple vessels CAD . she is recommend CABG . she still feel sob . no cp no nausea no vomiting no fever no abdominal pain no dizziness . Review of SystemsConstitutional:Reports: fatigue, generalized weakness. Denies: fever, lethargy. Respiratory:Reports: SOB. Denies: wheezing. Cardiovascular:Reports: DOUGLASS (dyspnea on exertion), edema. Denies: chest pain, orthopnea. GI:Denies: abdominal pain, nausea, vomiting. Neuro:Denies: dizziness. Objective GeneralVS/I O:Vital Signs: Date Time Temp Pulse Resp B/P B/P Pulse O2 O2 Flow FiO2 Mean Ox Delivery Rate 12/30 0915 35.9 73 22 127/44 70 82 10/ 0900 35.9 72 26 133/43 70 10/ 0830 35.8 73 31 121/45 69 79 10/ 0815 35.8 76 28 140/49 79 97 10/ 0800 35.8 72 21 136/47 75 94 10/ 0748 98 High flow 5 nasal cannula 10/ 0745 35.8 75 22 135/47 76 98 10/ 0730 High flow 5 nasal cannula / 0730 35.8 69 19 108/47 69 96 10/ 0715 35.9 75 18 100/51 72 97 [...] 2227 36.4 69 24 112/40 61 100 12/29 2225 114/56 80 12/29 2225 36.4 69 23 114/42 63 100 12/29 2214 36.4 72 25 108/36 56 100 12/29 2200 36.3 72 27 127/43 67 100 12/29 2145 36.3 71 19 115/39 59 100 12/29 2134 71 100 40 12/29 2129 36.2 71 19 129/41 66 100 12/29 [...] 36.3 73 28 151/48 80 97 12/29 1930 36.3 70 32 153/54 85 93 12/29 [...] scale Measurement Method PATIENT WEIGHT: Weight (lb): 270Weight (oz): 15.17Weight (kg): 122.900 Medications:Active Meds + DC'd Last 24 HrsInsulin Glargine (Lantus/Semglee) 25 UNIT DAILY SUBQ (DC) Insulin Glargine (Lantus/Semglee) 30 UNIT DAILY SUBQ Potassium Chloride (POTASSIUM CHLORIDE 20MEQ TAB.ER) 40 MEQ ONCE ONE PO (DC) Insulin Glargine (Lantus/Semglee) 20 UNIT BEDTIME SUBQ Insulin Human Lispro (HUMALOG) 0 AC HS SUBQ Dextrose/Water (DEXTROSE 10% IN WATER) 125 ML ASDIR PRN IV (CKD) Dextrose/Water (DEXTROSE 10% IN WATER) 250 ML ASDIR PRN IV (CKD) Glucagon (GLUCAGON) 1 MG ASDIR PRN IM Amiodarone HCl (CORDARONE) 200 MG BID PO Furosemide (LASIX 40 mg/4 mL INJECTION) 40 MG BID 9A 5P IV Acetazolamide (DIAMOX) 500 MG Q12HR IV Sterile Water (WATER FOR INJECTION) 5 ML ASDIR PRN IV Sterile Water (WATER FOR INJECTION) 5 ML ASDIR PRN IV Sodium Chloride (SODIUM CHLORIDE) 4 ML RTBID NEB Melatonin (Melatonin) 3 MG BEDTIME PO Sodium Chloride (SODIUM CHLORIDE) 10 ML BID IV Sodium Chloride (SODIUM CHLORIDE) 10 ML ASDIR PRN IV Pantoprazole (PROTONIX) 40 MG DAILY PO Dexmedetomidine/Sodium Chloride (PRECEDEX 1000MCG/NS 250ML) 250 ML ASDIR IV Bisacodyl (DULCOLAX) 10 MG DAILY PRN PRN RECTAL Lactulose (LACTULOSE) 20 GM DAILY PRN PRN PO Magnesium Hydroxide (MILK OF MAGNESIA) 30 ML DAILY PRN PRN PO Aspirin (ASPIRIN) 81 MG DAILY PO Clopidogrel Bisulfate (Plavix) 75 MG DAILY PO Cyanocobalamin (Vitamin B-12 500 mcg tab) 500 MCG DAILY PO Ferrous Sulfate (FERROUS SULFATE) 325 MG DAILY PO Metolazone (metOLazone) 5 MG DAILY PO Polyethylene [...] (CKD) Sodium Chloride (SODIUM CHLORIDE 0.9%) 99 MLAcetylcysteine (MUCOMYST FOR RT) 200 MG RTQ6H NEB Albuterol/Ipratropium (DUONEB) 3 ML RTQ6H NEB Bisacodyl (DULCOLAX) 10 MG ONCE PRN RECTAL Dopamine HCl/Dextrose (DOPamine 400MG/D5W 250ML) 250 ML ASDIR IV Milrinone Lactate/Dextrose (MILRINONE 20MG/D5W 100ML) 100 ML ASDIR IV (CKD) Vasopressin (VASOSTRICT 20 Unit/NS 100ML) 100 ML ASDIR IV (CKD) Acetaminophen (TYLENOL) 650 MG Q4H PRN PRN RECTAL Calcium Chloride (CALCIUM CHLORIDE) 1 GM ASDIR PRN IV Dextrose/Water (DEXTROSE 10% IN WATER) 125 ML ASDIR PRN IV (CKD) Dextrose/Water (DEXTROSE 10% IN WATER) 250 ML ASDIR PRN IV (CKD) Glucagon (GLUCAGON) 1 MG ASDIR PRN IM Magnesium Sulfate (MAGNESIUM SULFATE 4GM/SWFI 100ML) 100 ML ASDIR PRN IV Magnesium Sulfate (MAGNESIUM SULFATE 2GM/SWFI 50ML) 50 ML ASDIR PRN IV Magnesium Sulfate/Dextrose (MAGNESIUM SULFATE 1GM/D5W 100ML) 100 ML ASDIR PRN IV Nitroglycerin/Dextrose (NITROGLYCERIN 50,000MCG/D5W 250ML) 250 ML ASDIR IV Norepinephrine Bitartrate (NOREPINEPHRINE 8 MG/NS 250 ML) 250 ML TITRATE IV Potassium Chloride (KCL 20MEQ/SWFI 100ML) 100 ML ASDIR PRN IV Sodium Bicarbonate (SODIUM BICARBONATE) 50 MEQ ASDIR PRN IV Ondansetron HCl (ZOFRAN) 4 MG Q6H PRN PRN IV Physical ExamGeneral appearance: alert, awake, orientedHead/Eyes: atraumatic, normal conjunctiva/sclera, normal eyelids/periorb., normocephalicNeck: full range of motion, non-tender, no JVDCardiovascular: normal heart sounds, regular rate rhythmRespiratory: decreased breath sounds, clear to auscultationAbdomen: non-tender, normal bowel sounds, soft, no distentionExtremities: edema, moves all, no calf tendernessNeuro/[employer]: alert, 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Skin: dry, intact ResultsFindings/Data:Laboratory Tests 12/30 12/30 0843 0449 Blood Gas [...] 12/30 12/30 12/30 12/30 12/29 1159 0843 0449 444 2011 Chemistry Sodium [...] (1.80 - 2.40 mg/dL) 2.23 12/29 12/29 0892 1216 Chemistry POC Glucose (70 - 110 MG/DL) 197 H 236 H Laboratory Tests 12/30 6593 Hematology WBC (4.5 - 11.0 x10 3/uL) [...] (Auto) (14.0 - 32.0 %) 4.9 L [place] % (Auto) (4.8 - 9.0 %) 8.6 Eos % (Auto) (0.3 - 3.7 %) 1.8 Baso % (Auto) (0.0 - 2.0 %) 0.2 Neut # (Auto) (2.0 - 7.6 x10 3/uL) 7.24 Lymph # (Auto) (1.0 - 3.8 x10 3/uL) 0.43 L [place] # (Auto) (0.1 - 0.8 x10 3/uL) 0.75 Eos # (Auto) (0.0 - 0.2 x10 3/uL) 0.16 Baso # (Auto) (0.0 - 0.2 x10 3/uL) 0.02 Abs Immat Gran (auto) (0.00 - 0.03 x10 3/uL) 0.15 H Add Manual Diff NO Immature Gran % (0.0 - 2.0 %) 1.7 Nucleated RBC % (0 - 0 %) 0.5 H Nucleated RBCs # (Man) (0.0 - 0.1 x10 3/uL) 0.04 Radiology data:Recent Impressions:RADIOLOGY - XR CHEST 1 V 12/30 0512 Report Impression - Status: SIGNED Entered: 12/30/2021 0706 IMPRESSION: 1. Bilateral pulmonary opacities with multifocal airspace disease. Progression of disease in the right upper lobe. Edema and pneumonia in the differential. 2. Stable pleural effusions with bibasilar atelectasis and or airspace disease. Impression By: Catherine Carlisle M.D. Treatment Prophylaxis Treatment ProphylaxisDrain(s)/tube(s): Drain(s)/tube(s): chest (x3) Diagnosis, Assessment PlanConsultants: cardiology, cardiovascular surgery Free Text DxA P NotesFree text DxA P notes: 76 years old female with PMH of macular degeneration, obesity, obstructive sleepapnea (CPAP at home), former smoker, hypertension, hyperlipidemia, diabetes, Crohn's disease, chronic atrial fibrillation status post 3 ablations in the past(on Xarelto), pacemaker placement CAD -- multiple vesssels HTNDM HLDCrohn's diseasechronic atrial fibrillation status post 3 ablationsmacular degenerationobesityobstructive sleep apneaacute respiratory failure --post surgery severe mitral valve [...] MVR (31 Magna valve), CABG x 1 (ROBERTS-LAD), ILAA and pericardectomy -- she remain intubated on the vent -- chest tube are in place -on levophed and epinephrine drip -- monitor in CCU 12/20- she was extubated --on bipap now -- NPO --off Levophed/epinephrine, continue vasopressin, inotropes with milrinone, -- chest tube remain in place -- she is stable post surgery 12/21-- she is on high flow O2 -- edema --lasix --chest tube in place --- she is hemodynamic stable -- continue monitor in CCU 12/22- she remain on high O2 CXR show worsening pulmonary venous vascular congestion. --lasix iv tid -- chest tube are [...] drip as nurse -- continue supportive care 12/27On lasix and insulin drips. Back on lantus dose BID, trend glucose.Continue PT/OT.12/28Increase lantus BID. 12/29-- she remain on bipap -- sob and edema --lasiv and diamox iv bid -- FS -- better control -- continue monitor in CVICU 12/30- she improve --less sob and edema -- she tolerance diet -- continue lasix -- continue PT/OT at 1724 RPT #:[id number] OF REPORTPRProgress [id number]:15:00G.[id number] e for patient [id number]:24:54 [facility] 2021-12-30 08:20:00 [id number]/[id number] kR9uSHjLy5Z9 x8pNrXOIZUSgrYqn/ENVQS8I6202-00-42P85:20:[address] [facility] ([facility])Cardiology Progress NoteREPORT#:[id number] REPORT STATUS: SignedDATE:12/30/21 TIME: 08 PATIENT: KIAH GILES UNIT #: [id number]#: [id number] [address] [birth year] AGE: 76 SEX: F ATTEND: Jeffry More MDADM AUTHOR: Jillian Lane NP * ALL edits or amendments must be made on the electronic/computer document * SubjectiveChief complaint:sitting in chair eating breakfast Objective GeneralVS/I O:Laboratory Tests 12/30/21 0445:[Embedded Image Not Available] 12/29/21 1200:[Embedded Image Not Available] 12/29/21 0355:[Embedded Image Not Available] 12/28/21 2100:[Embedded Image Not Available] 12/28/21 1134:[Embedded Image Not Available]Current Medications Sig/Frankie Start time Last Medication Dose Route Stop Time Status Admin Insulin Glargine 25 UNIT DAILY 12/30 0900 DC SUBQ 01/29 0859 Insulin Glargine 30 UNIT DAILY 12/30 0900 AC 12/30 SUBQ 01/29 0859 0824 Potassium Chloride 40 MEQ ONCE ONE 12/30 0630 DC 12/30 PO 12/30 0631 0641 Insulin Glargine 20 UNIT BEDTIME 12/29 2100 AC 12/29 SUBQ 01/28 Insulin Human Lispro 0 AC HS 12/29 1630 AC 12/30 SUBQ 01/28 1629 0824 Dextrose/Water 125 ML [...] 5 ML ASDIR PRN 12/27 0845 AC 12/29 IV 01/26 0844 2016 Sodium Chloride 4 ML RTBID 12/26 2200 AC 12/30 NEB 01/25 215 0751 Melatonin 3 MG BEDTIME 12/26 2100 AC 12/29 PO 01/25 Sodium Chloride 10 ML BID 12/26 2100 AC 12/30 IV 01/25 205 0826 Sodium Chloride 10 ML ASDIR PRN 12/26 1200 AC IV 01/25 1159 Pantoprazole 40 MG DAILY 12/25 0900 AC 12/30 PO 01/24 0859 0825 Dexmedetomidine/ 250 ML ASDIR 12/24 2330 AC 12/24 Sodium Chloride IV 01/23 2329 2343 Bisacodyl 10 MG DAILY PRN PRN 12/24 1545 AC 12/24 RECTAL 01/23 1544 1645 Lactulose 20 GM DAILY PRN PRN 12/24 1330 AC 12/24 PO 01/23 1329 1645 Magnesium Hydroxide 30 ML DAILY PRN PRN 12/24 1330 AC 12/24 PO 01/23 1329 1646 Aspirin 81 MG DAILY 12/24 09 AC 12/30 PO 01/23 0859 0825 Clopidogrel Bisulfate 75 MG DAILY 12/24 899 AC 12/30 PO 01/23 0859 0825 Cyanocobalamin 500 MCG DAILY 12/24 899 AC 12/30 PO 01/23 0859 0825 Ferrous Sulfate 325 MG DAILY 12/24 899 AC 12/28 PO 01/23 0859 0840 Metolazone 5 MG DAILY 12/24 899 AC 12/29 PO 01/23 0859 1052 Polyethylene Glycol 17 GM DAILY 12/24 899 AC 12/30 PO 01/23 0859 0825 Atorvastatin Calcium 40 MG 2100 12/23 2099 AC 12/29 PO 01/22 Docusate Sodium 100 MG BID 12/23 2099 AC 12/30 PO 01/22 2059 08 Metoprolol Tartrate 12.5 MG Q12HR 12/23 2100 AC 12/30 PO 01/22 2059 0825 Senna 17.6 [...] Dopamine HCl/Dextrose 250 ML ASDIR 12/20 0800 AC 12/20 IV 01/19 0759 0829 Milrinone Lactate/ 100 ML ASDIR 12/19 2029 CKD 12/20 Dextrose IV 01/18 2029 0441 Vasopressin 100 ML ASDIR 12/19 2029 CKD 12/20 IV 01/18 Acetaminophen 650 MG Q4H PRN PRN 12/19 111 AC RECTAL 01/18 1114 Calcium Chloride 1 GM ASDIR PRN 12/19 1115 AC IV 01/18 1114 Dextrose/Water 125 ML ASDIR PRN 12/19 1115 CKD IV 01/18 1114 Dextrose/Water 250 ML ASDIR PRN 12/19 1115 CKD IV 01/18 1114 Glucagon 1 MG ASDIR PRN 12/19 1115 AC IM 01/18 1114 Magnesium Sulfate 100 ML ASDIR PRN 12/19 1115 AC IV 01/18 1114 Magnesium Sulfate 50 ML [...] hour I O ending at 0700: 12/30 0712/29 1900 Intake Total 480 Output Total 1005 1275 Balance -525 -1275 Intake, Oral 480 Output, Urine 1005 1275 Patient 122.9 kg Weight Weight Standing scale Measurement Method Vital Signs: Date Time Temp Pulse Resp B/P B/P Pulse O2 O2 Flow FiO2 Mean Ox Delivery Rate 12/30 914 35.9 73 22 127/44 70 82 12/30 899 35.9 72 26 133/43 70 12/30 829 35.8 73 31 121/45 69 79 12/30 814 35.8 76 28 140/49 79 97 12/31 799 35.8 72 21 136/47 75 94 10/18 0748 98 High flow 5 nasal cannula 10/18 0745 35.8 75 22 135/47 76 98 10/18 0730 High flow 5 nasal cannula 10/18 0730 35.8 69 19 108/47 69 96 [...] 0130 36.4 76 24 124/56 81 100 12/30 0115 36.5 69 21 123/53 78 100 /18 0100 123/58 84 12/30 0100 36.5 70 27 114/49 72 100 12/30 0045 36.5 73 23 101/46 65 100 12/30 0030 36.5 72 21 99/46 65 100 12/30 0015 36.5 73 29 121/56 80 98 / 0003 131/58 84 12/30 0003 36.5 72 22 89/53 70 100 / 0000 98/65 76 / 0000 36.5 76 23 142/56 87 100 / 2347 76 100 40 / 2345 36.5 75 24 141/53 84 100 / 2330 36.6 75 33 138/51 80 88 / 2315 36.5 69 26 128/47 73 100 / 2300 100/49 70 / 2300 36.5 70 26 103/39 58 100 12/29 2245 36.5 69 22 118/47 69 100 /17 2230 99/49 71 12/29 2230 36.4 69 26 104/38 56 100 /17 2229 100/50 72 /17 2229 36.4 69 23 106/38 57 100 /17 2228 107/53 76 /17 2228 36.4 69 25 109/39 59 100 / 2227 113/52 76 /17 2227 36.4 69 24 112/40 61 100 / 2226 114/56 80 / 2226 36.4 69 23 114/42 63 100 /17 2215 36.4 72 25 108/36 56 100 /17 2200 36.3 72 27 127/43 67 100 /17 2145 36.3 71 19 115/39 59 100 /17 2134 71 100 40 /0 36.2 71 19 129/41 66 100 /2114 36.2 71 25 133/42 69 94 12/29 [...] 71 98 40 PATIENT WEIGHT: Weight (lb): 270Weight (oz): 15.17Weight (kg): 122.900 Status post:CABG, MVR, and ILAA Physical ExamGeneral appearance: alert, awake, oriented, no acute distressENT: moist mucosal membranesNeck: no JVDCardiovascular: CV assessment: regular rate and rhythmRespiratory: decreased breath sounds, on oxygenAbdomen: obeseGenitourinary: no flank pain, no urinary catheterUpper extremity: UE assessment: normal temperature, no edemaLower extremity: LE assessment: edemaNeuro/[employer]: alert, 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Skin: dry, intactPsychiatry: normal affect, normal mood ResultsRadiology data:Recent Impressions:RADIOLOGY - XR CHEST 1 V 12/30 0612 Report Impression - Status: SIGNED Entered: 12/30/2021 0706 IMPRESSION: 1. Bilateral pulmonary opacities with multifocal airspace disease. Progression of disease in the right upper lobe. Edema and pneumonia in the differential. 2. Stable pleural effusions with bibasilar atelectasis and or airspace disease. Impression By: Catherine Carlisle M.D. Diagnosis, Assessment Plan Free Text DxA P NotesFree Text DxA P Notes:Ms Giles is a 76 y/o Femal w/ PMHx: CAD, HLD, T2DM, RONA (CPAP at home), smoker,Crohn's disease, AF s/p ablation (on Xarelto), s/p PPM and lymphedema. Dr. Ramos is consulted for CAD s/p CABG, MVR. - CAD s/p CABG, MVR, and ILAA. post-op per CTS and critical care On Plavix, aspirin, beta-delma, statin volume management per Nephrology rotating bipap with high flow NC as tolerated- weaning as tolerated - Chr AF s/p PPM/ablation. Rate controlled, paced rhythm. had ILAA during bypass - HTN. BP stable - HLD. On statins. - Crohn's disease. Per IM. -MARCELLO - resolvingper Nephrology -Resp insufficiency on BIPAP/high flow NC as tolerated per critical care -Diastolic CHF/volume overload diuretic management per nephrology/CTS continue supportive carePT/OT as tolerated at 1059 at 2330 RPT #:[id number] OF REPORTPRProgress [id number]:20:00G.[id number] e for patient ftybKPRLGWRYXIWIPQ2177-19-22D27:00:20 [facility] 2021-12-29 21:00:00 [id number] 241BRDdp6Scy 2ov7dgOKZc5N4fUVGZwbqg841922-06-97Z16:00:[address] [facility] ([facility]Neph[facility] Progress NoteREPORT#:[id number] REPORT STATUS: SignedDATE:12/29/21 TIME: 2100 PATIENT: KIAH GILES UNIT #: [id number]#: [id number] [address] [birth year] AGE: 76 SEX: F ATTEND: Jeffry More AUTHOR: Suki Fuchs MD * ALL edits or amendments must be made on the electronic/computer document * SubjectiveChief complaint:chest painHPI:This is a 76-year-old female who has past medical history of hypertension, diabetes, coronary artery disease, atrial fibrillation who presented with worsening shortness of breath and on further work-up was 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 She was withnormal kidney function prior to surgery and after her surgery she began to develop oliguria. Her procedure was done without any complications but after her surgery she did require pressor support for hypotension and she was intubated for respiratory acidosis and hypoxia and she was treated with vancomycin for infection treatment. When she was seen this morning she continued to have hypotension and her heart rate was paced by her permanent pacemaker and her urine output was 20 to 30/h. Her family at bedside denied anyhistory of kidney disease, kidney stone, chronic NSAID use or any urinary complaints. They also endorse that her blood pressure and diabetes were mostly controlled. day she was eating in a chair and appeared comfortable. Objective GeneralVS/I O:Vital Signs: Date Time Temp Pulse Resp B/P B/P Pulse O2 O2 Flow FiO2 Mean Ox Delivery Rate 12/29 1636 75 100 40 12/29 1231 77 98 40 12/29 1227 71 98 40 12/29 0945 36.1 75 23 135/38 63 100 12/29 0930 36.1 75 29 154/41 71 99 12/29 0915 36.1 76 36 151/41 69 95 12/29 0900 36.1 75 27 151/37 65 88 12/29 0845 36.1 72 26 149/40 70 94 / 0830 36.1 75 28 148/41 71 93 / 0815 36.1 72 24 151/42 72 97 / 0815 98 High flow 10 60 nasal cannula 12/29 0800 36.2 72 14 132/36 60 100 12/29 0745 36.2 71 16 142/39 65 100 / 0730 High flow 10 nasal cannula 12/29 0730 36.2 75 13 147/40 67 100 12/29 0715 36.2 72 28 159/44 75 99 12/29 0700 36.3 72 26 172/48 81 100 / 0645 36.3 72 25 176/48 83 99 / 0630 36.4 73 22 173/48 81 100 / 0615 36.4 69 24 184/53 88 100 / 0600 76 48 100 / 0545 36.3 70 26 100 / 0530 36.4 70 25 100 / 0515 36.4 69 24 156/58 91 99 / 0500 36.4 69 24 106/35 54 100 / 0445 36.4 69 21 117/38 59 100 /17 0430 36.4 69 24 126/40 63 99 /17 0430 89 100 40 /17 0415 36.4 69 17 120/39 61 98 /17 0400 36.4 69 23 138/45 72 100 /17 0345 36.4 69 25 130/46 71 99 /17 0330 36.4 69 24 137/132 134 100 /17 0315 36.3 69 23 142/47 76 100 /17 0300 36.4 69 23 160/57 90 99 /17 0245 36.4 73 28 160/61 96 98 /17 0230 36.3 71 26 156/52 85 96 /17 0215 36.4 71 30 168/61 97 96 /17 0213 71 100 40 /17 0200 36.4 44 22 152/53 86 96 /17 0145 36.4 73 26 125/46 70 98 /17 0130 36.3 75 25 114/43 63 100 12/29 0115 36.3 75 26 111/43 63 98 / 0100 36.3 75 25 112/43 64 98 /17 0045 36.3 73 16 114/43 64 98 /17 0040 70 99 40 /17 0030 36.3 72 16 121/45 67 97 /17 0015 36.3 75 16 122/47 69 98 /17 0000 36.3 76 18 118/46 67 98 [...] 2115 36.7 69 34 136/35 61 97 24 hour I O ending at 0700: 12/29 0700 12/28 1900 Intake Total 275.00 1437.90 Output Total 640 1135 Balance -365.00 302.90 Intake, IV 275.00 137.90 Intake, Oral 580 Intake, Oral 720 Supplement Output, Urine 640 1135 Patient 123.2 kg Weight Weight Standing scale Measurement Method PATIENT WEIGHT: Weight (lb): 271Weight (oz): 9.75Weight (kg): 123.200 Physical ExamGeneral appearance: alert, awake, orientedHead/eyes: atraumatic, normocephalicENT: moist mucous membranes, normal noseNeck: no JVD, no lymphadenopathyCardiovascular: normal heart sounds, regular rate and rhythmRespiratory: aerating well, clear to auscultationAbdomen: soft, no pulsatile massGenitourinary: urinary catheterExtremities: no gangrene, no swelling Treatment Prophylaxis Treatment ProphylaxisDrain(s)/tube(s): Drain(s)/tube(s): chest (x3) Diagnosis, Assessment PlanFree Text A P:This is a 76-year-old female known to have hypertension, diabetes, atrial fibrillation, s/p permanent pacemaker and history of ablation presenting with shortness of breath and 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 Nephrology is following for: 1. Acute kidney injury: Most likely it is prerenal (cardiorenal), she has been hypotensive postoperatively with requirement for pressor support and inotropic support. Plan is to increase inotropic support or pressor support to bring meanarterial pressure above 65 and give albumin with Lasix to see if it helps him diurese. If he does not respond to higher dose Lasix with albumin then I will consider starting him on CRRT to prevent hyper volemia. 2. Hypervolemia: Plan is to give Lasix and if he does not respond to start him on CRRT for extra fluid removal. 3. His electrolytes were all reviewed to be in normal range plan was to monitorand replace as needed. 4. He was receiving vancomycin so plan was to monitor vancomycin trough levels to prevent ATN. . Acute kidney injury: Most likely it is prerenal (cardiorenal), she has been hypotensive postoperatively with requirement for pressor support and inotropic support. She responded to Lasix after her blood pressure improved with higher dose vasopressin and she was given albumin. Plan was to continue twice a day Lasix and albumin for hypervolemia. 2. Hypervolemia: Plan is to give Lasix with albumin twice daily and increase dose if needed. 3. His electrolytes were all reviewed to be in normal range plan was to monitorand replace as needed. 4. He was receiving vancomycin so plan was to monitor vancomycin trough levels to prevent ATN. 12/22 1. Acute kidney injury: Most likely it is prerenal (cardiorenal), she has been hypotensive postoperatively with requirement for pressor support and inotropic support. She responded to Lasix after her blood pressure improved with higher dose vasopressin and she was given albumin. Plan was to continue Lasix and albumin for hypervolemia.Plan to increase dose to reach goal of 1 L negative Q12H. 2. Hypervolemia: Plan is to give Lasix with albumin and increase dose if needed. 3. His electrolytes were all reviewed to be in normal range plan was to monitorand replace as needed. 4. He was receiving vancomycin so plan was to monitor vancomycin trough levels to prevent ATN. 12/23 1. Acute kidney injury: Most likely it is prerenal (cardiorenal), she has been hypotensive postoperatively with requirement for pressor support and inotropic support. She responded to Lasix after her blood pressure improved with higher dose vasopressin and she was given albumin. Plan was to continue Lasix and albumin for hypervolemia.Plan to increase dose to reach goal of 1 L negative Q12H. 2. Hypervolemia: Plan is to give Lasix with albumin and increase dose if needed. 3. Her electrolytes were all reviewed to be in normal range plan was to monitor and replace as needed. 4. She was receiving vancomycin so plan was to monitor vancomycin trough levelsto prevent ATN. 5/ Metabolic alkalosis secondary to diuretics : Plan to give acetazoleamide if worsening. 12/24 1. Acute kidney injury: Resolved, she is responding to lasix. 2. Hypervolemia: Plan to continue lasix as tolerated. 3. Her electrolytes were all reviewed to be in normal range plan was to monitor and replace as needed. 4. She was receiving vancomycin so plan was to monitor vancomycin trough levelsto prevent ATN. 5/ Metabolic alkalosis secondary to diuretics : Plan to give acetazoleamide if worsening. 12/25 1. Acute kidney injury: Resolved, she is responding to lasix. 2. Hypervolemia: Plan to continue lasix as tolerated.Today it was held for metabolic alkalosis. 3. Her electrolytes were all reviewed to be in normal range plan was to monitor and replace as needed. 4. She was receiving vancomycin so plan was to monitor vancomycin trough levelsto prevent ATN. 5/ Metabolic alkalosis secondary to diuretics : Plan to give acetazoleamide if worsening. 12/26 1. Acute kidney injury: Resolved, she is responding to lasix. 2. Hypervolemia: Plan to continue lasix as tolerated.Today she was on low dose drip. 3. Her electrolytes were all reviewed to be in normal range plan was to monitor and replace as needed. 4. She was receiving vancomycin so plan was to monitor vancomycin trough levelsto prevent ATN. 5/ Metabolic alkalosis secondary to diuretics : Plan to give acetazoleamide if worsening. . Acute kidney injury: Resolved, she is responding to lasix. 2. Hypervolemia: Plan to continue lasix as tolerated.Today she was on low dose twice daily lasix. 3. Hypokalemia/hypomagnesemia:secondary to diuretics, plan was to monitor and replace as needed. 4. She was receiving vancomycin so plan was to monitor vancomycin trough levelsto prevent ATN. 5/ Metabolic alkalosis secondary to diuretics : Plan to give acetazoleamide and monitor closely. 12/28 1. Acute kidney injury: Resolved, she is responding to lasix. 2. Hypervolemia: Plan to continue lasix as tolerated.Today she was on low dose twice daily lasix. 3. Hypokalemia/hypomagnesemia:secondary to diuretics, plan was to monitor and replace as needed. 4. She was receiving vancomycin so plan was to monitor vancomycin trough levelsto prevent ATN. 5/ Metabolic alkalosis secondary to diuretics : Plan to give acetazoleamide and monitor closely. 12/28 1. Acute kidney injury: Resolved, she is responding to lasix. 2. Hypervolemia: Plan to continue lasix as tolerated.Today she was on low dose twice daily lasix. 3. Hypokalemia/hypomagnesemia:secondary to diuretics, plan was to monitor and replace as needed. 4. She was receiving vancomycin so plan was to monitor vancomycin trough levelsto prevent ATN. 5/ Metabolic alkalosis secondary to diuretics : Plan to give acetazoleamide and monitor closely. 12/29 1. Acute kidney injury: Resolved, she is responding to lasix. 2. Hypervolemia: Plan to continue lasix as tolerated.Today she was on low dose twice daily lasix. 3. Hypokalemia/hypomagnesemia:secondary to diuretics, plan was to monitor and replace as needed. 4. She was receiving vancomycin so plan was to monitor vancomycin trough levelsto prevent ATN. 5/ Metabolic alkalosis secondary to diuretics : Plan to give acetazoleamide andmonitor closely. Consultants: cardiology, cardiovascular surgery at 2106 RPT #:[id number] OF REPORTPRProgress [id number]:00:00G.[id number] e for patient [id number]:06:30 [facility] 2021-12-29 18:07:00 [id number] HlSjW6uZ4aAO kQSG3vxExUyFr75YxTNOu6bn4985-86-36K30:07:00 [facility])Cardiothoracic Surgery ProgREPORT#:[id number] REPORT STATUS: SignedDATE:12/29/21 TIME: 1806 PATIENT: KIAH GILES UNIT #: [id number]#: [id number] [address] [birth year] AGE: 76 SEX: F ATTEND: Jeffry More AUTHOR: Tj Bonner MD * ALL edits or amendments must be made on the electronic/computer document * GeneralPost-op: day 7Status post:1. Mitral valve replacement (31 Magna valve). 2. Coronary artery bypass graft surgery x1 (ROBERTS to LAD). 3. Isolation of left atrial appendage. 4. Pericardiectomy. SubjectiveChief complaint:Shortness of breath Review of SystemsConstitutional:Denies: fever, malaise. Allergy/Immun:Denies: allergic reaction. ENT:Denies: sore throat. Respiratory:Denies: SOB. GI:Denies: abdominal pain. Heme:Denies: bleeding. Neuro:Denies: focal weakness, headache. All systems rev neg: except as marked Objective GeneralVS/I OLast Documented: Result Date Time Pulse Ox 100 12/30 1635 FiO2 40 12/29 163 Pulse 75 12/29 1636 B/P 135/38 12/29 0945 B/P Mean 63 12/29 0845 Temp 36.1 12/29 0845 Resp 23 12/29 [...] scale Measurement Method PATIENT WEIGHT: Weight (lb): 271Weight (oz): 9.75Weight (kg): 123.200 Dietitian Nutrition assessmentThe data set between the solid lines has been imported from the dietitian's assessment. BMI Calculated: 46.6Nutrition related diagnosis: Morbid obesityNutrition diagnosis details: BMI 40 or moreNutrition problem: Increased nutrient needsNutrition etiology: Chronic diseaseNutrition signs and symptoms: S/P CABGNutrition prescription: 1. CONTINUE REGULAR DIET TO LIBERALIZE FOOD CHOICES ANDHELP INCREASE PO INTAKE. 2. PROVIDE GLUCERNA 4 PER DAY. 3. MONITOR PO, WT, LABS,BM.Dietitian name: Serenity Garner, DIETAssessment completed: 12/25/21 Physical ExamGeneral appearance: frailWound/incision: Location:sternal Site condition: dressing clean dry, dressing intactHEENT: anictericNeck: supple/no meningismusCardiovascular: normal heart sounds, regular rate rhythmRespiratory: aerating well, symmetric expansion, no distressAbdomen: soft, non-tenderExtremities: moves allNeuro/[employer]: alert, 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, normal speechSkin: dry, intact, normal temperaturePsychiatry: normal affect, normal mood Current MedicationsMedications:Active Meds + DC'd Last 24 HrsInsulin Glargine (Lantus/Semglee) 25 UNIT DAILY SUBQ (DC) Insulin Glargine (Lantus/Semglee) 30 UNIT DAILY SUBQ Insulin Glargine (Lantus/Semglee) 20 UNIT BEDTIME SUBQ Insulin Human Lispro (HUMALOG) 0 AC HS SUBQ Dextrose/Water (DEXTROSE 10% IN WATER) 125 ML ASDIR PRN IV (CKD) Dextrose/Water (DEXTROSE 10% IN WATER) 250 ML ASDIR PRN IV (CKD) Glucagon (GLUCAGON) 1 MG ASDIR PRN IM Amiodarone HCl (CORDARONE) 200 MG BID PO Furosemide (LASIX 40 mg/4 mL INJECTION) 40 MG ONCE ONE IV (DC) Dextrose/Water (DEXTROSE 50% W SYRINGE) 0 .STK-MED ONE IV (DC) Lorazepam (ATIVAN) 0.25 MG ONCE ONE PO (DC) Albumin Human (ALBUMINAR-25%) 50 ML ONCE ONE IV (DC) Potassium Chloride (POTASSIUM CHLORIDE 20MEQ TAB.ER) 40 MEQ ONCE ONE PO (DC) Insulin Glargine (Lantus/Semglee) 30 UNIT BID SUBQ (DC) Furosemide (LASIX 40 mg/4 mL INJECTION) 40 MG BID 9A 5P IV Acetazolamide (DIAMOX) 500 MG Q12HR IV Sterile Water (WATER FOR INJECTION) 5 ML ASDIR PRN IV Sterile Water (WATER FOR INJECTION) 5 ML ASDIR PRN IV Sodium Chloride (SODIUM CHLORIDE) 4 ML RTBID NEB Melatonin (Melatonin) 3 MG BEDTIME PO Sodium Chloride (SODIUM CHLORIDE) 10 ML BID IV Sodium Chloride (SODIUM CHLORIDE) 10 ML ASDIR PRN IV Pantoprazole (PROTONIX) 40 MG DAILY PO Dexmedetomidine/Sodium Chloride (PRECEDEX 1000MCG/NS 250ML) 250 ML ASDIR IV Bisacodyl (DULCOLAX) 10 MG DAILY PRN PRN RECTAL Lactulose (LACTULOSE) 20 GM DAILY PRN PRN PO Magnesium Hydroxide (MILK OF MAGNESIA) 30 ML DAILY PRN PRN PO Aspirin (ASPIRIN) 81 MG DAILY PO Clopidogrel Bisulfate (Plavix) 75 MG DAILY PO Cyanocobalamin (Vitamin B-12 500 mcg tab) 500 MCG DAILY PO Ferrous Sulfate (FERROUS SULFATE) 325 MG DAILY PO Metolazone (metOLazone) 5 MG DAILY PO Polyethylene [...] (CKD) Sodium Chloride (SODIUM CHLORIDE 0.9%) 99 MLAcetylcysteine (MUCOMYST FOR RT) 200 MG RTQ6H NEB Albuterol/Ipratropium (DUONEB) 3 ML RTQ6H NEB Bisacodyl (DULCOLAX) 10 MG ONCE PRN RECTAL Dopamine HCl/Dextrose (DOPamine 400MG/D5W 250ML) 250 ML ASDIR IV Milrinone Lactate/Dextrose (MILRINONE 20MG/D5W 100ML) 100 ML ASDIR IV (CKD) Vasopressin (VASOSTRICT 20 Unit/NS 100ML) 100 ML ASDIR IV (CKD) Acetaminophen (TYLENOL) 650 MG Q4H PRN PRN RECTAL Calcium Chloride (CALCIUM CHLORIDE) 1 GM ASDIR PRN IV Dextrose/Water (DEXTROSE 10% IN WATER) 125 ML ASDIR PRN IV (CKD) Dextrose/Water (DEXTROSE 10% IN WATER) 250 ML ASDIR PRN IV (CKD) Glucagon (GLUCAGON) 1 MG ASDIR PRN IM Magnesium Sulfate (MAGNESIUM SULFATE 4GM/SWFI 100ML) 100 ML ASDIR PRN IV Magnesium Sulfate (MAGNESIUM SULFATE 2GM/SWFI 50ML) 50 ML ASDIR PRN IV Magnesium Sulfate/Dextrose (MAGNESIUM SULFATE 1GM/D5W 100ML) 100 ML ASDIR PRN IV Nitroglycerin/Dextrose (NITROGLYCERIN 50,000MCG/D5W 250ML) 250 ML ASDIR IV Norepinephrine Bitartrate (NOREPINEPHRINE 8 MG/NS 250 ML) 250 ML TITRATE IV Potassium Chloride (KCL 20MEQ/SWFI 100ML) 100 ML ASDIR PRN IV Sodium Bicarbonate (SODIUM BICARBONATE) 50 MEQ ASDIR PRN IV Ondansetron HCl (ZOFRAN) 4 MG Q6H PRN PRN IV ResultsFindings/Data:Laboratory Tests 12/29 12/29 12/29 12/29 0536 0300 0200 0054 Blood Gas Puncture Site Art Line Art Line Art Line Art Line O2 [...] - 26.0 MMOL/L) 40.1 *H 42.4 *H 42.4 *H 42.8 *H ABG Total CO2 42.4 44.7 45.0 45.3 ABG Base Excess (-4.0 - 4.0 MMOL/L) 14.5 H 16.9 H 16.3 H 16.6 H ABG Hematocrit (33.0 - 45.0 %) 23 L 24 L 23 L 22 L ABG Hemoglobin (11.0 - 15.0 G/DL) 7.8 L 8.2 L 7.9 L 7.5 L Martin Test N/A Sodium (134 - 147 MEQ/L) 144 143 144 143 Potassium (3.4 - 5.0 MEQ/L) 3.9 4.0 4.0 4.1 Chloride (100 - 108 MEQ/L) 101 99 L 99 L 98 L Ionized Calcium (1.12 - 1.32 MMOL/L) 1.34 H 1.34 H 1.35 H 1.34 H Lactic Acid [...] 2.40 mg/dL) 2.38 12/29 12/29 12/29 12/29 12/29 0536 0355 0355 0301 0300 Chemistry Sodium [...] 12/29 12/29 12/28 12/28 0200 0054 0054 2359 2351 Chemistry POC Creatinine (0.6 - 1.0 mg/dL) 1.1 H 1.2 H POC Glucose (70 - 110 MG/DL) 126 H 120 H 43 L POC Glucose (mg/dL) (70 - 110 MG/DL) 106 120 H 12/28 12/28 12/28 12/28 12/28 2332 2100 6 2054 191 Chemistry Sodium (134 - 147 mEq/L) 145 [...] (Auto) (14.0 - 32.0 %) 4.5 L [place] % (Auto) (4.8 - 9.0 %) 8.8 Eos % (Auto) (0.3 - 3.7 %) 1.4 Baso % (Auto) (0.0 - 2.0 %) 0.1 Neut # (Auto) (2.0 - 7.6 x10 3/uL) 7.48 Lymph # (Auto) (1.0 - 3.8 x10 3/uL) 0.40 L [place] # (Auto) (0.1 - 0.8 x10 3/uL) 0.79 Eos # (Auto) (0.0 - 0.2 x10 3/uL) 0.13 Baso # (Auto) (0.0 - 0.2 x10 3/uL) 0.01 Abs Immat Gran (auto) (0.00 - 0.03 x10 3/uL) 0.16 H Add Manual Diff NO Immature Gran % (0.0 - 2.0 %) 1.8 Nucleated RBC % (0 - 0 %) 0.7 H Nucleated RBCs # (Man) (0.0 - 0.1 x10 3/uL) 0.06 Radiology data:Recent Impressions:RADIOLOGY - XR CHEST 1 V 12/29 0517 Report Impression - Status: SIGNED Entered: 12/29/2021 0702 IMPRESSION: 1. The intracardiac pacer leads are grossly unchanged. 2. There is no significant interval change in generalized right pulmonary opacification. 3. There is mild improved aeration of both lung bases. 4. No pneumothorax is visible. Impression By: [email or web address] - Bill Kern M.D. Results: rythm personally rev'd, x-ray personally reviewed, current med profile rev'd Treatment Prophylaxis Treatment ProphylaxisOxygen: CPAP/BIPAPLines: arterial, CVC, peripheralDrain(s)/tube(s): Drain(s)/tube(s): chest (x3) Quality: Trauma Gen Surg Current MedicationsCurrent medication review:Home Medications:RIVAROXABAN (XARELTO) 20 MG PO DAILY amLODIPine (NORVASC) [...] DAILY INSULIN DETEMIR (LEVEMIR FlexTouch (15mL)) 50 UNITS SUBQ BID INSULIN LISPRO (HumaLOG CARTRIDGE (15mL)) 0 UNITS SUBQ TID LIRAGLUTIDE (VICTOZA (6mL)) 1.8 MG SUBQ DAILY metFORMIN (GLUCOPHAGE) 1,000 MG PO BID ADALIMUMAB + SUPPLIES (HUMIRA PREFILLED PEN) 40 MG SUBQ Q14D azaTHIOprine (IMURAN) 50 MG PO DAILY I attest that the foregoing medication list in the medical record is true, accurate, and complete to the best of my knowledge. Diagnosis, Assessment PlanHospital course to date:This very pleasant 76-year-old female, from [facility], with past medical history of macular degeneration, obesity, obstructive sleep apnea (CPAP at home), former smoker, hypertension, hyperlipidemia, diabetes, Crohn's disease, chronic atrial fibrillation status post 3 ablations in the past (on Xarelto), pacemaker placement who had a recent admission to the hospital with heart failure symptoms. She has been admitted to the hospital today for elective heartcath. Coronary angiogram showed severe multivessel coronary artery disease suitable for percutaneous intervention. CV surgery called for evaluation. 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 She will benefit from off-pump ROBERTS to LAD and pericardiotomy. Dr. Romero explainedto the patient the surgery, risks involved, STS score, benefits, complications and alternatives. She acknowledged understanding and is willing to proceedPreop work-up has been initiatedWe will tentatively schedule patient for surgery tomorrow. 12/18 Preop assessment ongoingNo carotid stenosis on ultrasoundCT chest reviewed with Dr. Singhurgery rescheduled for tomorrowNPO after midnight Plan discussed with the patient 12/20 POD 1Patient hemodynamically stable, cardiac index 3.1Required Bipap after extubation yesterday and overnightTrend ABGs- wean bipap as toleratedDecrease milrinone drip to 0.125, and continue vasopressin at 0.02 Urine output marginal- dopamine drip started at 3Creatinine increased to 1.4, monitor strict I and O'sEncourage po intake, incentive spirometer useTry to get patient out of bed to chair today PT/OTMonitor patient closely in the CVICU 12/22/21POD3d/c chest tubesneed to diuresis agressively 40 k98wnctr needs legs elevatedcxr appears wetd/c swanTPN due to bipapteleflex today keep TPN for now 12/23 POD 4Labs and cxr reviewedIncrease diuresis- monitor strict I OsContinue TPNOn teleflex 60L 70%- wean as toleratedMonitor patient in CVICU 12/25/21 POD 6back on bipapif reintubate consider trach still on TPNif trach consider PEG 12/26/21POD 7contiune bipap support alt with teleflexif reintubate will need trach and pegcontinue hyperal 12/29/21 improvingless O2 requirementsambulating much bettertolorating dietrahab vs LTAC placement Consultants: cardiology, cardiovascular surgery at 180 RPT #:[id number] OF REPORTPRProgress [id number]:07:00G.[id number] e for patient bcibGMWGOVPVLUCPWT1442-43-71H79:09:42 HC ACL 2021-12-29 13:46:00 [id number] JBgi6+yKrW4M bSXKCfCtI2EWG/H1tdJa5wdJ8154-44-08Q25:46:00 [facility] CenterRe[facility] Progress NoteREPORT#:[id number] REPORT STATUS: SignedDATE:12/29/21 TIME: 1346 PATIENT: KIAH GILES UNIT #: [id number]#: [id number] [address] [birth year] AGE: 76 SEX: F ATTEND: Jeffry More MDADM AUTHOR: Alicia Pantoja NP * ALL edits or amendments must be made on the electronic/computer document * SubjectiveChief complaint:rehab follow-upSitting up in chair wearing bippap mask very fatigue appearance Significant generalized weakness, fatigueNo GOLD/N/V/D14 systems reviewed and negative except that mentioned above. Objective GeneralVS:Vital Signs: Date Time Temp Pulse Resp B/P B/P Pulse O2 O2 Flow FiO2 Mean Ox Delivery Rate 12/29 1231 [...] 0645 97.3 72 25 176/48 83 99 10/17 0630 97.5 73 22 173/48 81 100 10/17 0615 97.5 69 24 184/53 88 100 10/17 0600 76 48 100 10/17 0545 97.3 70 26 100 10/17 0530 [...] 2230 98.2 75 34 143/53 84 95 12/28 2215 97.7 73 33 144/52 80 99 12/28 2200 98.1 69 23 133/43 67 100 12/28 2145 98.1 69 27 122/32 57 100 12/28 2130 97.9 69 21 148/38 66 97 12/285 98.1 69 34 136/35 61 97 12/28 [...] 98.2 72 44 157/43 75 91 12/28 1930 98.2 70 24 163/43 77 98 12/28 [...] 1601 98.8 69 23 131/36 61 100 16 1600 98.8 69 30 133/36 62 99 12/28 1545 98.8 75 29 135/37 65 98 12/28 1530 98.8 75 20 130/36 61 100 12/28 1515 98.6 75 26 129/35 60 97 12/28 1500 140/73 93 / 1500 98.6 69 25 139/35 62 96 12/28 1445 98.6 74 29 149/38 68 93 12/28 1430 98.8 71 28 154/41 70 97 12/28 1424 146/65 94 12/28 1424 94 High flow 7 nasal cannula 12/28 1424 98.8 69 27 159/39 70 95 12/28 1415 98.6 72 27 146/46 76 98 12/28 1400 98.6 70 28 147/46 74 99 PATIENT WEIGHT: Weight (lb): 271Weight (oz): 9.75Weight (kg): 123.200 Medications:Active Meds + DC'd Last 24 HrsInsulin Glargine (Lantus/Semglee) 25 UNIT DAILY SUBQ (DC) Insulin Glargine (Lantus/Semglee) 30 UNIT DAILY SUBQ Insulin Glargine (Lantus/Semglee) 20 UNIT BEDTIME SUBQ Insulin Human Lispro (HUMALOG) 0 AC HS SUBQ Dextrose/Water (DEXTROSE 10% IN WATER) 125 ML ASDIR PRN IV (CKD) Dextrose/Water (DEXTROSE 10% IN WATER) 250 ML ASDIR PRN IV (CKD) Glucagon (GLUCAGON) 1 MG ASDIR PRN IM Amiodarone HCl (CORDARONE) 200 MG BID PO Furosemide (LASIX 40 mg/4 mL INJECTION) 40 MG ONCE ONE IV (DC) Dextrose/Water (DEXTROSE 50% W SYRINGE) 0 .STK-MED ONE IV (DC) Lorazepam (ATIVAN) 0.25 MG ONCE ONE PO (DC) Albumin Human (ALBUMINAR-25%) 50 ML ONCE ONE IV (DC) Potassium Chloride (POTASSIUM CHLORIDE 20MEQ TAB.ER) 40 MEQ ONCE ONE PO (DC) Insulin Glargine (Lantus/Semglee) 30 UNIT BID SUBQ (DC) Albumin Human (ALBUMINAR-25%) 50 ML ONCE ONE IV (DC) Furosemide (LASIX 40 mg/4 mL INJECTION) 40 MG BID 9A 5P IV Acetazolamide (DIAMOX) 500 MG Q12HR IV Sterile Water (WATER FOR INJECTION) 5 ML ASDIR PRN IV Sterile Water (WATER FOR INJECTION) 5 ML ASDIR PRN IV Sodium Chloride (SODIUM CHLORIDE) 4 ML RTBID NEB Melatonin (Melatonin) 3 MG BEDTIME PO Sodium Chloride (SODIUM CHLORIDE) 10 ML BID IV Sodium Chloride (SODIUM CHLORIDE) 10 ML ASDIR PRN IV Pantoprazole (PROTONIX) 40 MG DAILY PO Dexmedetomidine/Sodium Chloride (PRECEDEX 1000MCG/NS 250ML) 250 ML ASDIR IV Bisacodyl (DULCOLAX) 10 MG DAILY PRN PRN RECTAL Lactulose (LACTULOSE) 20 GM DAILY PRN PRN PO Magnesium Hydroxide (MILK OF MAGNESIA) 30 ML DAILY PRN PRN PO Aspirin (ASPIRIN) 81 MG DAILY PO Clopidogrel Bisulfate (Plavix) 75 MG DAILY PO Cyanocobalamin (Vitamin B-12 500 mcg tab) 500 MCG DAILY PO Ferrous Sulfate (FERROUS SULFATE) 325 MG DAILY PO Metolazone (metOLazone) 5 MG DAILY PO Polyethylene [...] (CKD) Sodium Chloride (SODIUM CHLORIDE 0.9%) 99 MLAcetylcysteine (MUCOMYST FOR RT) 200 MG RTQ6H NEB Albuterol/Ipratropium (DUONEB) 3 ML RTQ6H NEB Bisacodyl (DULCOLAX) 10 MG ONCE PRN RECTAL Dopamine HCl/Dextrose (DOPamine 400MG/D5W 250ML) 250 ML ASDIR IV Milrinone Lactate/Dextrose (MILRINONE 20MG/D5W 100ML) 100 ML ASDIR IV (CKD) Vasopressin (VASOSTRICT 20 Unit/NS 100ML) 100 ML ASDIR IV (CKD) Acetaminophen (TYLENOL) 650 MG Q4H PRN PRN RECTAL Calcium Chloride (CALCIUM CHLORIDE) 1 GM ASDIR PRN IV Dextrose/Water (DEXTROSE 10% IN WATER) 125 ML ASDIR PRN IV (CKD) Dextrose/Water (DEXTROSE 10% IN WATER) 250 ML ASDIR PRN IV (CKD) Glucagon (GLUCAGON) 1 MG ASDIR PRN IM Magnesium Sulfate (MAGNESIUM SULFATE 4GM/SWFI 100ML) 100 ML ASDIR PRN IV Magnesium Sulfate (MAGNESIUM SULFATE 2GM/SWFI 50ML) 50 ML ASDIR PRN IV Magnesium Sulfate/Dextrose (MAGNESIUM SULFATE 1GM/D5W 100ML) 100 ML ASDIR PRN IV Nitroglycerin/Dextrose (NITROGLYCERIN 50,000MCG/D5W 250ML) 250 ML ASDIR IV Norepinephrine Bitartrate (NOREPINEPHRINE 8 MG/NS 250 ML) 250 ML TITRATE IV Potassium Chloride (KCL 20MEQ/SWFI 100ML) 100 ML ASDIR PRN IV Sodium Bicarbonate (SODIUM BICARBONATE) 50 MEQ ASDIR PRN IV Ondansetron HCl (ZOFRAN) 4 MG Q6H PRN PRN IV Physical ExamGeneral appearance: chronically ill appearing, obese, respiratory support (Bipapa), awake, orientedPsych: alert, oriented x 3HEENT: anicteric, mucosal membranes moistNeck: supple, no JVDCardiovascular: regular rate rhythm, no murmurRespiratory: diminished breath sounds (bases ), on oxygen (Hi flow O2 )Abdomen: bowel sounds present, non-distended, soft, non-tenderSkin: dry, intact, no rash, incisions D/IMusculoskeletal - general: Musculoskeletal - general: swelling (BLE +3), moving all ext AGNeuro/[employer]: alert, 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, normal speech, no motor deficits, no sensory deficits ResultsFindings/Data:Laboratory Tests: 12/29 12/29 12/29 12/29 12/29 1216 [...] 2.40 mg/dL) 2.38 12/29 12/29 12/29 12/29 0355 0355 0301 0300Blood Gas Puncture Site Art Line O2 Saturation [...] 97.5 O2 Delivery Device BiPAP FiO2 (%) 40Chemistry Sodium (134 - 147 mEq/L) 144 Potassium [...] mg/dL) 9.5 Magnesium (1.80 - 2.40 mg/dL) 2.29Hematology WBC (4.5 - 11.0 x10 3/uL) 9.0 [...] (Auto) (14.0 - 32.0 %) 4.5 L [place]quitt % (Auto) (4.8 - 9.0 %) 8.8 Eos % (Auto) (0.3 - 3.7 %) 1.4 Baso % (Auto) (0.0 - 2.0 %) 0.1 Neut # (Auto) (2.0 - 7.6 x10 3/uL) 7.48 Lymph # (Auto) (1.0 - 3.8 x10 3/uL) 0.40 L [place] # (Auto) (0.1 - 0.8 x10 3/uL) 0.79 Eos # (Auto) (0.0 - 0.2 x10 3/uL) 0.13 Baso # (Auto) (0.0 - 0.2 x10 3/uL) 0.01 Abs Immat Gran (auto) (0.00 - 0.03 x10 3/uL) 0.16 H Add Manual Diff NO Immature Gran % (0.0 - 2.0 %) 1.8 Nucleated RBC % (0 - 0 %) 0.7 H Nucleated RBCs # (Man) (0.0 - 0.1 x10 3/uL) 0.06 12/29 12/29 12/29 12/28 12/28 0200 0054 0054 2359 2351Blood Gas Puncture Site Art Line Art Line [...] Calcium (1.12 - 1.32 MMOL/L) 1.35 H 1.34 H Lactic Acid (0.9 - 1.7 mmol/l) 0.5 L 0.7 L Temperature (F) 97.5 97.3 O2 Delivery Device BiPAP BiPAP FiO2 (%) 40 40Chemistry POC Creatinine (0.6 - 1.0 mg/dL) 1.1 [...] 110 MG/DL) 106 162 H 225 H 212 H POC Glucose (mg/dL) (70 - 110 MG/DL) 131 H Diagnosis, Assessment PlanFree Text A P:Critical illness myopathyStatus post CABG x1 Status post MVRGeneralized weaknessDeconditioningImpaired ADLs, mobility, gait, balance and endurance postoperative anemiaMorbid obesityCADHLD Crohn's diseaseChronic A. fibHypoxic respiratory failure Plan:Continue PT/OTOut of bed to chairWork on strength, bed mobility, transfers, gaitIncrease enduranceFall precautionsMonitor p.o. intake and nutritionStrict decubitus precautionsMonitor anemiaAdvance therapies as toleratedTolerating regular dietContinue diuresis- monitor strict I OsLasix drip discontinued. Started on IV Lasix and DiamoxWeigh patient dailyAdvance therapies as tolerated Pt on lasix and insulin dripMetabolic alkalosis secondary to diuretics : Plan to give acetazoleamide and monitor closely. Will eventually need IRF when medically ready. CLOF with therapyAmbulation 20 feet, 5 feet, 15 feet x 2 moderate assistance with rolling walker,shuffling gait short steps head down TT: 34 mins, reviewing chart, notes, labs, meds, therapy notes, discussed medical mgt, and rehab poc, goals. Answered all questions Rehab attestation:Face to face exam completed. Treatment plan discussed with patient. at 1349 RPT #:[id number] OF REPORTPRProgress [id number]:46:00G.[id number] e for patient xkodIQVOTYYOCMQFZA9711-25-28T85:49:19 HC ACL 2021-12-29 12:11:00 [id number] kK37iKIFapcO D5m/ebffnQ573ickFB7Z0abI1218-27-04J61:11:00 [facility] CenterNephrology Progress NoteREPORT#:[id number] REPORT STATUS: SignedDATE:12/29/21 TIME: 1211 PATIENT: KIAH GILES UNIT #: [id number]#: [id number] [address] [birth year] AGE: 76 SEX: F ATTEND: Jeffry More AUTHOR: Suki Fuchs MD * ALL edits or amendments must be made on the electronic/computer document * SubjectiveChief complaint:chest painHPI:This is a 76-year-old female who has past medical history of hypertension, diabetes, coronary artery disease, atrial fibrillation who presented with worsening shortness of breath and on further work-up was 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 She was withnormal kidney function prior to surgery and after her surgery she began to develop oliguria. Her procedure was done without any complications but after her surgery she did require pressor support for hypotension and she was intubated for respiratory acidosis and hypoxia and she was treated with vancomycin for infection treatment. When she was seen this morning she continued to have hypotension and her heart rate was paced by her permanent pacemaker and her urine output was 20 to 30/h. Her family at bedside denied anyhistory of kidney disease, kidney stone, chronic NSAID use or any urinary complaints. They also endorse that her blood pressure and diabetes were mostly controlled. day she was eating in a chair and appeared comfortable. Objective Physical ExamHead/eyes: atraumatic, normocephalicENT: ET tubeNeck: no JVD, no lymphadenopathyCardiovascular: normal heart sounds, regular rate and rhythmRespiratory: aerating well, clear to auscultationAbdomen: soft, no pulsatile massGenitourinary: urinary catheterExtremities: pitting edema, no gangrene, no swelling Treatment Prophylaxis Treatment ProphylaxisDrain(s)/tube(s): Drain(s)/tube(s): chest (x3) Diagnosis, Assessment PlanFree Text A P:This is a 76-year-old female known to have hypertension, diabetes, atrial fibrillation, s/p permanent pacemaker and history of ablation presenting with shortness of breath and 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 Nephrology is following for: 1. Acute kidney injury: Most likely it is prerenal (cardiorenal), she has been hypotensive postoperatively with requirement for pressor support and inotropic support. Plan is to increase inotropic support or pressor support to bring meanarterial pressure above 65 and give albumin with Lasix to see if it helps him diurese. If he does not respond to higher dose Lasix with albumin then I will consider starting him on CRRT to prevent hyper volemia. 2. Hypervolemia: Plan is to give Lasix and if he does not respond to start him on CRRT for extra fluid removal. 3. His electrolytes were all reviewed to be in normal range plan was to monitorand replace as needed. 4. He was receiving vancomycin so plan was to monitor vancomycin trough levels to prevent ATN. . Acute kidney injury: Most likely it is prerenal (cardiorenal), she has been hypotensive postoperatively with requirement for pressor support and inotropic support. She responded to Lasix after her blood pressure improved with higher dose vasopressin and she was given albumin. Plan was to continue twice a day Lasix and albumin for hypervolemia. 2. Hypervolemia: Plan is to give Lasix with albumin twice daily and increase dose if needed. 3. His electrolytes were all reviewed to be in normal range plan was to monitorand replace as needed. 4. He was receiving vancomycin so plan was to monitor vancomycin trough levels to prevent ATN. 12/22 1. Acute kidney injury: Most likely it is prerenal (cardiorenal), she has been hypotensive postoperatively with requirement for pressor support and inotropic support. She responded to Lasix after her blood pressure improved with higher dose vasopressin and she was given albumin. Plan was to continue Lasix and albumin for hypervolemia.Plan to increase dose to reach goal of 1 L negative Q12H. 2. Hypervolemia: Plan is to give Lasix with albumin and increase dose if needed. 3. His electrolytes were all reviewed to be in normal range plan was to monitorand replace as needed. 4. He was receiving vancomycin so plan was to monitor vancomycin trough levels to prevent ATN. 12/23 1. Acute kidney injury: Most likely it is prerenal (cardiorenal), she has been hypotensive postoperatively with requirement for pressor support and inotropic support. She responded to Lasix after her blood pressure improved with higher dose vasopressin and she was given albumin. Plan was to continue Lasix and albumin for hypervolemia.Plan to increase dose to reach goal of 1 L negative Q12H. 2. Hypervolemia: Plan is to give Lasix with albumin and increase dose if needed. 3. Her electrolytes were all reviewed to be in normal range plan was to monitor and replace as needed. 4. She was receiving vancomycin so plan was to monitor vancomycin trough levelsto prevent ATN. 5/ Metabolic alkalosis secondary to diuretics : Plan to give acetazoleamide if worsening. 12/24 1. Acute kidney injury: Resolved, she is responding to lasix. 2. Hypervolemia: Plan to continue lasix as tolerated. 3. Her electrolytes were all reviewed to be in normal range plan was to monitor and replace as needed. 4. She was receiving vancomycin so plan was to monitor vancomycin trough levelsto prevent ATN. 5/ Metabolic alkalosis secondary to diuretics : Plan to give acetazoleamide if worsening. 12/25 1. Acute kidney injury: Resolved, she is responding to lasix. 2. Hypervolemia: Plan to continue lasix as tolerated.Today it was held for metabolic alkalosis. 3. Her electrolytes were all reviewed to be in normal range plan was to monitor and replace as needed. 4. She was receiving vancomycin so plan was to monitor vancomycin trough levelsto prevent ATN. 5/ Metabolic alkalosis secondary to diuretics : Plan to give acetazoleamide if worsening. 12/26 1. Acute kidney injury: Resolved, she is responding to lasix. 2. Hypervolemia: Plan to continue lasix as tolerated.Today she was on low dose drip. 3. Her electrolytes were all reviewed to be in normal range plan was to monitor and replace as needed. 4. She was receiving vancomycin so plan was to monitor vancomycin trough levelsto prevent ATN. 5/ Metabolic alkalosis secondary to diuretics : Plan to give acetazoleamide if worsening. . Acute kidney injury: Resolved, she is responding to lasix. 2. Hypervolemia: Plan to continue lasix as tolerated.Today she was on low dose twice daily lasix. 3. Hypokalemia/hypomagnesemia:secondary to diuretics, plan was to monitor and replace as needed. 4. She was receiving vancomycin so plan was to monitor vancomycin trough levelsto prevent ATN. 5/ Metabolic alkalosis secondary to diuretics : Plan to give acetazoleamide and monitor closely. 12/28 1. Acute kidney injury: Resolved, she is responding to lasix. 2. Hypervolemia: Plan to continue lasix as tolerated.Today she was on low dose twice daily lasix. 3. Hypokalemia/hypomagnesemia:secondary to diuretics, plan was to monitor and replace as needed. 4. She was receiving vancomycin so plan was to monitor vancomycin trough levelsto prevent ATN. 5/ Metabolic alkalosis secondary to diuretics : Plan to give acetazoleamide and monitor closely. 12/28 1. Acute kidney injury: Resolved, she is responding to lasix. 2. Hypervolemia: Plan to continue lasix as tolerated.Today she was on low dose twice daily lasix. 3. Hypokalemia/hypomagnesemia:secondary to diuretics, plan was to monitor and replace as needed. 4. She was receiving vancomycin so plan was to monitor vancomycin trough levelsto prevent ATN. 5/ Metabolic alkalosis secondary to diuretics : Plan to give acetazoleamide and monitor closely. 12/28 1. Acute kidney injury: Resolved, she is responding to lasix. 2. Hypervolemia: Plan to continue lasix as tolerated.Today she was on low dose twice daily lasix. 3. Hypokalemia/hypomagnesemia:secondary to diuretics, plan was to monitor and replace as needed. 4. She was receiving vancomycin so plan was to monitor vancomycin trough levelsto prevent ATN. 5/ Metabolic alkalosis secondary to diuretics : Plan to give acetazoleamide and monitor closely. Consultants: cardiology, cardiovascular surgery at [address] [facility] #:[id number] OF REPORTPRProgress [id number]:11:00G.[id number] e for patient rtxpJBQUEVCSMOCUCK4560-49-56Y72:27:02 HC ACL 2021-12-29 11:17:00 [id number] 4jsBZz0liwQQ Pw8jeoVohm0JDwiDBRIaDIWR5386-29-46H81:17:00 [facility] CenterHospitalist Progress NoteREPORT#:[id number] REPORT STATUS: SignedDATE:12/29/21 TIME: 1117 PATIENT: KIAH GILES UNIT #: [id number]#: [id number] [address] [birth year] AGE: 76 SEX: F ATTEND: Jeffry More MDA AUTHOR: Meryl Rosa MD * ALL edits or amendments must be made on the electronic/computer document * SubjectiveChief complaint:she is on bipap . she remain edema acute respiratory failure --post CABGHPI: 76 years old female with PMH of macular degeneration, obesity, obstructive sleepapnea (CPAP at home), former smoker, hypertension, hyperlipidemia, diabetes, Crohn's disease, chronic atrial fibrillation status post 3 ablations in the past(on Xarelto), pacemaker placement is admitted to the hospital post cardiac cath . she need CABG . she had sob for years . sob got worse . she was admitted to the hospital in [place] . she had cath 3 weeks ago . she was reffered to here for stents placement . she had cath yesterday . it show multiple vessels CAD . she is recommend CABG . she still feel sob . no cp no nausea no vomiting no fever no abdominal pain no dizziness . Review of SystemsConstitutional:Denies: fever, lethargy. Respiratory:Reports: SOB. Denies: wheezing. Cardiovascular:Reports: DOUGLASS (dyspnea on exertion), edema. Denies: chest pain, orthopnea, palpitations. GI:Denies: abdominal pain, nausea, vomiting. Neuro:Denies: dizziness. Objective GeneralVS/I O:Vital Signs: Date Time Temp Pulse Resp B/P B/P Pulse O2 O2 Flow FiO2 Mean Ox Delivery Rate / 0945 36.1 75 23 135/38 63 100 10/ 0930 36.1 75 29 154/41 71 99 10/ 0915 36.1 76 36 151/41 69 95 10/ 0900 36.1 75 27 151/37 65 88 / 0845 36.1 72 26 149/40 70 94 / 0830 36.1 75 28 148/41 71 93 / 0815 36.1 72 24 151/42 72 97 / 0815 98 High flow 10 60 nasal cannula / 0800 36.2 72 14 132/36 60 100 10/ 0745 36.2 71 16 142/39 65 100 [...] 63 99 10/17 0430 89 100 40 10/ 0415 36.4 69 17 120/39 61 98 / 0400 36.4 69 23 138/45 72 100 10/ 0345 36.4 69 25 130/46 71 99 / 0330 36.4 69 24 137/132 134 100 10/17 0315 36.3 69 23 142/47 76 100 17 0300 36.4 69 23 160/57 90 99 17 0245 36.4 73 28 160/61 96 98 17 0230 36.3 71 26 156/52 85 96 17 0215 36.4 71 30 168/61 97 96 /17 0213 71 100 40 17 0200 36.4 44 22 152/53 86 96 /17 0145 36.4 73 26 125/46 70 98 /17 0130 36.3 75 25 114/43 63 100 /17 0115 36.3 75 26 111/43 63 98 /17 0100 36.3 75 25 112/43 64 98 /17 0045 36.3 73 16 114/43 64 98 /17 0040 70 99 40 /17 0030 36.3 72 16 121/45 67 97 / 0015 36.3 75 16 122/47 69 98 [...] 194 36.8 72 44 157/43 75 91 10/16 1930 36.8 70 24 163/43 77 98 10/16 1915 36.8 72 36 151/98 108 91 /16 1900 36.9 72 29 162/49 80 99 10/16 1812 37.0 69 20 143/40 65 100 10/16 1800 37.0 71 28 144/42 68 99 [...] 1530 37.1 75 20 130/36 61 100 10/16 1515 37.0 75 26 129/35 60 97 10/16 1500 140/73 93 10/16 1500 37.0 69 25 139/35 62 96 /16 1445 37.0 74 29 149/38 68 93 10/16 1430 37.1 71 28 154/41 70 97 /16 1424 146/65 94 /16 1424 94 High flow 7 nasal cannula 10/16 1424 37.1 69 27 159/39 70 95 /16 1415 37.0 72 27 146/46 76 98 10/16 1400 37.0 70 28 147/46 74 99 10/16 1345 36.9 74 17 123/38 60 100 [...] scale Measurement Method PATIENT WEIGHT: Weight (lb): 271Weight (oz): 9.75Weight (kg): 123.200 Medications:Active Meds + DC'd Last 24 HrsInsulin Glargine (Lantus/Semglee) 25 UNIT DAILY SUBQ Insulin Glargine (Lantus/Semglee) 20 UNIT BEDTIME SUBQ Amiodarone HCl (CORDARONE) 200 MG BID PO Furosemide (LASIX 40 mg/4 mL INJECTION) 40 MG ONCE ONE IV (DC) Dextrose/Water (DEXTROSE 50% W SYRINGE) 0 .STK-MED ONE IV (DC) Lorazepam (ATIVAN) 0.25 MG ONCE ONE PO (DC) Albumin Human (ALBUMINAR-25%) 50 ML ONCE ONE IV (DC) Potassium Chloride (POTASSIUM CHLORIDE 20MEQ TAB.ER) 40 MEQ ONCE ONE PO (DC) Insulin Glargine (Lantus/Semglee) 30 UNIT BID SUBQ (DC) Albumin Human (ALBUMINAR-25%) 50 ML ONCE ONE IV (DC) Furosemide (LASIX 40 mg/4 mL INJECTION) 40 MG BID 9A 5P IV Acetazolamide (DIAMOX) 500 MG Q12HR IV Sterile Water (WATER FOR INJECTION) 5 ML ASDIR PRN IV Sterile Water (WATER FOR INJECTION) 5 ML ASDIR PRN IV Sodium Chloride (SODIUM CHLORIDE) 4 ML RTBID NEB Melatonin (Melatonin) 3 MG BEDTIME PO Sodium Chloride (SODIUM CHLORIDE) 10 ML BID IV Sodium Chloride (SODIUM CHLORIDE) 10 ML ASDIR PRN IV Pantoprazole (PROTONIX) 40 MG DAILY PO Dexmedetomidine/Sodium Chloride (PRECEDEX 1000MCG/NS 250ML) 250 ML ASDIR IV Bisacodyl (DULCOLAX) 10 MG DAILY PRN PRN RECTAL Lactulose (LACTULOSE) 20 GM DAILY PRN PRN PO Magnesium Hydroxide (MILK OF MAGNESIA) 30 ML DAILY PRN PRN PO Aspirin (ASPIRIN) 81 MG DAILY PO Clopidogrel Bisulfate (Plavix) 75 MG DAILY PO Cyanocobalamin (Vitamin B-12 500 mcg tab) 500 MCG DAILY PO Ferrous Sulfate (FERROUS SULFATE) 325 MG DAILY PO Metolazone (metOLazone) 5 MG DAILY PO Polyethylene [...] (CKD) Sodium Chloride (SODIUM CHLORIDE 0.9%) 99 MLAcetylcysteine (MUCOMYST FOR RT) 200 MG RTQ6H NEB Albuterol/Ipratropium (DUONEB) 3 ML RTQ6H NEB Bisacodyl (DULCOLAX) 10 MG ONCE PRN RECTAL Dopamine HCl/Dextrose (DOPamine 400MG/D5W 250ML) 250 ML ASDIR IV Milrinone Lactate/Dextrose (MILRINONE 20MG/D5W 100ML) 100 ML ASDIR IV (CKD) Vasopressin (VASOSTRICT 20 Unit/NS 100ML) 100 ML ASDIR IV (CKD) Acetaminophen (TYLENOL) 650 MG Q4H PRN PRN RECTAL Calcium Chloride (CALCIUM CHLORIDE) 1 GM ASDIR PRN IV Dextrose/Water (DEXTROSE 10% IN WATER) 125 ML ASDIR PRN IV (CKD) Dextrose/Water (DEXTROSE 10% IN WATER) 250 ML ASDIR PRN IV (CKD) Glucagon (GLUCAGON) 1 MG ASDIR PRN IM Magnesium Sulfate (MAGNESIUM SULFATE 4GM/SWFI 100ML) 100 ML ASDIR PRN IV Magnesium Sulfate (MAGNESIUM SULFATE 2GM/SWFI 50ML) 50 ML ASDIR PRN IV Magnesium Sulfate/Dextrose (MAGNESIUM SULFATE 1GM/D5W 100ML) 100 ML ASDIR PRN IV Nitroglycerin/Dextrose (NITROGLYCERIN 50,000MCG/D5W 250ML) 250 ML ASDIR IV Norepinephrine Bitartrate (NOREPINEPHRINE 8 MG/NS 250 ML) 250 ML TITRATE IV Potassium Chloride (KCL 20MEQ/SWFI 100ML) 100 ML ASDIR PRN IV Sodium Bicarbonate (SODIUM BICARBONATE) 50 MEQ ASDIR PRN IV Ondansetron HCl (ZOFRAN) 4 MG Q6H PRN PRN IV Physical ExamGeneral appearance: alert, awake, orientedHead/Eyes: atraumatic, normal conjunctiva/sclera, normal eyelids/periorb., normocephalicNeck: full range of motion, non-tender, no JVDCardiovascular: normal heart sounds, regular rate rhythmRespiratory: decreased breath sounds, clear to auscultationAbdomen: non-tender, normal bowel sounds, soft, no distentionExtremities: edema, moves all, no calf tendernessNeuro/[employer]: alert, 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Skin: dry, intact ResultsFindings/Data:Laboratory Tests 12/29 12/29 12/29 12/29 0536 0300 0200 0054 Blood Gas Puncture Site Art Line Art Line Art Line Art Line O2 [...] - 26.0 MMOL/L) 40.1 *H 42.4 *H 42.4 *H 42.8 *H ABG Total CO2 42.4 44.7 45.0 45.3 ABG Base Excess (-4.0 - 4.0 MMOL/L) 14.5 H 16.9 H 16.3 H 16.6 H ABG Hematocrit (33.0 - 45.0 %) 23 L 24 L 23 L 22 L ABG Hemoglobin (11.0 - 15.0 G/DL) 7.8 L 8.2 L 7.9 L 7.5 L Martin Test N/A Sodium (134 - 147 MEQ/L) 144 143 144 143 Potassium (3.4 - 5.0 MEQ/L) 3.9 4.0 4.0 4.1 Chloride (100 - 108 MEQ/L) 101 99 L 99 L 98 L Ionized Calcium (1.12 - 1.32 MMOL/L) 1.34 H 1.34 H 1.35 H 1.34 H Lactic Acid [...] - 26.0 MMOL/L) 41.2 *H 40.6 *H 39.9 *H ABG Total CO2 43.4 42.7 42.2 ABG Base Excess (-4.0 - 4.0 MMOL/L) 15.7 H 15.7 H 14.2 H ABG Hematocrit (33.0 - 45.0 %) 24 L 25 L 24 L ABG Hemoglobin (11.0 - 15.0 G/DL) 8.2 L 8.5 L 8.3 L Martin Test N/A Sodium (134 - 147 MEQ/L) 144 143 142 Potassium (3.4 - 5.0 MEQ/L) 3.5 3.6 3.8 Chloride (100 - 108 MEQ/L) 99 L 98 L 95 L Ionized Calcium (1.12 - 1.32 MMOL/L) 1.33 H 1.35 H 1.27 Lactic Acid (0.9 - 1.7 [...] - 1.0 mg/dL) 1.2 H 1.1 H 1.2 H POC Glucose (70 - 110 MG/DL) 124 H 126 H POC Glucose (mg/dL) (70 - 110 MG/DL) 125 H 106 120 H 12/28 12/28 12/28 12/28 12/28 2359 2351 2332 2100 2056 Chemistry Sodium (134 - 147 mEq/L) 145 [...] mg/dL) 9.7 12/28 12/28 12/28 12/28 12/28 2055 1915 1808 1634 1630 Chemistry POC Creatinine (0.6 - 1.0 mg/dL) 1.2 H POC Glucose (70 - 110 MG/DL) 117 H 139 H 106 162 H POC Glucose (mg/dL) (70 - 110 MG/DL) 131 H 12/28 12/28 12/28 12/28 12/28 1448 1349 1251 1134 1134Chemistry Sodium (134 - 147 mEq/L) 142 Potassium [...] (Auto) (14.0 - 32.0 %) 4.5 L Col[place] % (Auto) (4.8 - 9.0 %) 8.8 Eos % (Auto) (0.3 - 3.7 %) 1.4 Baso % (Auto) (0.0 - 2.0 %) 0.1 Neut # (Auto) (2.0 - 7.6 x10 3/uL) 7.48 Lymph # (Auto) (1.0 - 3.8 x10 3/uL) 0.40 L [place] # (Auto) (0.1 - 0.8 x10 3/uL) 0.79 Eos # (Auto) (0.0 - 0.2 x10 3/uL) 0.13 Baso # (Auto) (0.0 - 0.2 x10 3/uL) 0.01 Abs Immat Gran (auto) (0.00 - 0.03 x10 3/uL) 0.16 H Add Manual Diff NO Immature Gran % (0.0 - 2.0 %) 1.8 Nucleated RBC % (0 - 0 %) 0.7 H Nucleated RBCs # (Man) (0.0 - 0.1 x10 3/uL) 0.06 Treatment Prophylaxis Treatment ProphylaxisDrain(s)/tube(s): Drain(s)/tube(s): chest (x3) Diagnosis, Assessment PlanConsultants: cardiology, cardiovascular surgery Free Text DxA P NotesFree text DxA P notes: 76 years old female with PMH of macular degeneration, obesity, obstructive sleepapnea (CPAP at home), former smoker, hypertension, hyperlipidemia, diabetes, Crohn's disease, chronic atrial fibrillation status post 3 ablations in the past(on Xarelto), pacemaker placement CAD -- multiple vesssels HTNDM HLDCrohn's diseasechronic atrial fibrillation status post 3 ablationsmacular degenerationobesityobstructive sleep apneaacute respiratory failure --post surgery severe mitral valve [...] MVR (31 Magna valve), CABG x 1 (ROBERTS-LAD), ILAA and pericardectomy -- she remain intubated on the vent -- chest tube are in place -on levophed and epinephrine drip -- monitor in CCU 12/20- she was extubated --on bipap now -- NPO --off Levophed/epinephrine, continue vasopressin, inotropes with milrinone, -- chest tube remain in place -- she is stable post surgery 12/21-- she is on high flow O2 -- edema --lasix --chest tube in place --- she is hemodynamic stable -- continue monitor in CCU 12/22- she remain on high O2 CXR show worsening pulmonary venous vascular congestion. --lasix iv tid -- chest tube are [...] drip as nurse -- continue supportive care 12/27On lasix and insulin drips. Back on lantus dose BID, trend glucose.Continue PT/OT.12/28Increase lantus BID. 12/29-- she remain on bipap -- sob and edema --lasiv and diamox iv bid -- FS -- better control -- continue monitor in CVICU at 1803 RPT #:[id number] OF REPORTPRProgress [id number]:17:00G.[id number] e for patient tyzuNMBCCTQGARKPUU4298-26-24L07:03:56 HC ACL 2021-12-29 09:27:00 [id number]/iH Cglaf0yw++j+ gkRbuhSUU26fkmtK+EbmpteO3962-46-70K23:27:[address] [facility] ([facility])Cardiology Progress NoteREPORT#:[id number] REPORT STATUS: SignedDATE:12/29/21 TIME: 926 PATIENT: KIAH GILES UNIT #: [id number]#: [id number] [address] [birth year] AGE: 76 SEX: F ATTEND: Jeffry More MDADM AUTHOR: Jillian Lane NP * ALL edits or amendments must be made on the electronic/computer document * SubjectiveChief complaint:on bipapsitting in chair Objective GeneralVS/I O:Laboratory Tests 12/29/21 0355:[Embedded Image Not Available] 12/28/21 2100:[Embedded Image Not Available] 12/28/21 1134:[Embedded Image Not Available] 12/28/21 0340:[Embedded Image Not Available] 12/27/21 1600:[Embedded Image Not Available] 12/27/21 1430:[Embedded Image Not Available]Current Medications Sig/Frankie Start time Last Medication Dose Route Stop [...] 50 ML ONCE ONE 12/28 2200 DC 12/28 IV 12/28 2249 2216 Potassium Chloride 40 MEQ ONCE ONE 12/28 2200 DC 12/28 PO 12/28 2201 2319 Insulin Glargine 30 UNIT BID 12/28 2100 DC 12/29 SUBQ 01/27 205 0832 Albumin Human 50 ML ONCE ONE 12/28 1600 DC 12/28 IV 12/28 1649 1620 Furosemide 40 MG BID 9A 5P 12/28 0730 AC 12/29 IV 01/27 0729 0833 Acetazolamide 500 MG Q12HR 12/27 2100 AC 12/29 IV 01/03 205 0832 Insulin Glargine 20 UNIT BID 12/27 2100 DC 12/28 SUBQ 01/26 205 0843 Sterile Water 5 ML ASDIR PRN 12/27 1130 AC IV 01/26 1129 Sterile Water 5 ML ASDIR PRN 12/27 0845 AC IV 01/26 0844 Sodium Chloride 4 ML RTBID 12/26 2200 AC 12/29 NEB 01/25 215 0817 Melatonin 3 MG BEDTIME 12/26 2100 AC 12/28 PO 01/25 2059 202 Sodium Chloride 10 ML BID 12/26 2100 AC 12/29 IV 01/25 205 0836 Sodium Chloride 10 ML ASDIR PRN 12/26 1200 AC IV 01/25 1159 Pantoprazole 40 MG DAILY 12/25 0900 AC 12/29 PO 01/24 0859 0833 Dexmedetomidine/ 250 ML ASDIR 12/24 2330 AC 12/24 Sodium Chloride IV 01/23 2329 2343 Bisacodyl 10 MG DAILY PRN PRN 12/24 1545 AC 12/24 RECTAL 01/23 1544 1645 Lactulose 20 GM DAILY PRN PRN 12/24 1330 AC 12/24 PO 01/23 1329 1645 Magnesium Hydroxide 30 ML DAILY PRN PRN 12/24 1330 AC 12/24 PO 01/23 1329 1646 Aspirin 81 MG DAILY 12/24 899 AC 12/29 PO 01/23 0859 0833 Clopidogrel Bisulfate 75 MG DAILY 12/24 0900 AC 12/29 PO 01/23 0859 0833 Cyanocobalamin 500 MCG DAILY 12/24 09 AC 12/29 PO 01/23 0859 0836 Ferrous Sulfate 325 MG DAILY 12/24 899 AC 12/28 PO 01/23 0859 0840 Metolazone 5 MG DAILY 12/24 899 AC 12/28 PO 01/23 0859 1222 Polyethylene Glycol 17 GM DAILY 12/24 899 AC 12/29 PO 01/23 0859 0834 Atorvastatin Calcium 40 MG 2100 12/23 2099 AC 12/28 PO 01/22 Docusate Sodium 100 MG BID 12/23 2099 AC 12/29 PO 01/22 2059 0832 Metoprolol Tartrate 12.5 MG Q12HR 12/23 2099 AC 12/29 PO 01/22 2059 0835 Senna 17.6 MG BEDTIME 12/23 2099 AC 12/23 PO 01/22 Amiodarone HCl 200 MG TID 12/23 1500 DC 12/28 PO 01/22 Acetaminophen 650 MG Q4H PRN PRN 12/23 1200 AC 12/24 PO 01/22 1147 1058 Tramadol HCl 25 MG Q4H PRN PRN 12/23 1200 DC PO 12/28 1154 Tramadol HCl 50 MG Q4H PRN PRN 12/23 1200 DC 12/23 PO 12/28 1154 2104 Insulin Human Regular [...] Dopamine HCl/Dextrose 250 ML ASDIR 12/20 0800 AC 12/20 IV 01/19 0759 0829 Milrinone Lactate/ 100 ML ASDIR 12/19 2029 CKD 12/20 Dextrose IV 01/18 202 0441 Vasopressin 100 ML ASDIR 12/19 2030 CKD 12/20 IV 01/18 202 204 Acetaminophen 650 MG Q4H PRN PRN 12/19 1115 AC RECTAL 01/18 1114 Calcium Chloride 1 GM ASDIR PRN 12/19 1115 AC IV 01/18 1114 Dextrose/Water 125 ML ASDIR PRN 12/19 1115 CKD IV 01/18 1114 Dextrose/Water 250 ML ASDIR PRN 12/19 111 CKD IV 01/18 1114 Glucagon 1 MG ASDIR PRN 12/19 111 AC IM 01/18 1114 Magnesium Sulfate 100 ML ASDIR PRN 12/19 1115 AC IV 01/18 1114 Magnesium Sulfate 50 ML ASDIR PRN 12/19 1115 AC IV 01/18 111 Magnesium Sulfate/ 100 ML ASDIR PRN 12/19 111 AC 12/29 Dextrose IV 01/18 1114 0630 Nitroglycerin/ 250 ML ASDIR 12/19 111 AC Dextrose IV 01/18 1114 Norepinephrine 250 ML TITRATE 12/19 111 AC Bitartrate IV 01/18 111 Potassium Chloride 100 ML ASDIR PRN 12/19 111 AC 12/28 IV 01/18 1114 2216 Sodium Bicarbonate 50 MEQ ASDIR PRN 12/19 111 AC IV 01/18 1114 Ondansetron HCl 4 MG Q6H PRN PRN 12/18 1145 AC 12/25 IV 01/17 1144 0326 24 hour I O ending at 0700: 12/29 1900 Intake Total 275.00 1437.90 Output Total 640 1135 Balance -365.00 302.90 Intake, IV 275.00 137.90 Intake, Oral 580 Intake, Oral 720 Supplement Output, Urine 640 1135 Patient 123.2 kg Weight Weight Standing scale Measurement Method Vital Signs: Date Time Temp Pulse Resp B/P B/P Pulse O2 O2 Flow FiO2 Mean Ox Delivery Rate 12/29 944 36.1 75 23 135/38 63 100 12/29 929 36.1 75 29 154/41 71 99 12/29 914 36.1 76 36 151/41 69 95 12/29 899 36.1 75 27 151/37 65 88 12/30 0745 36.1 72 26 149/40 70 94 12/30 0730 36.1 75 28 148/41 71 93 12/29 814 36.1 72 24 151/42 72 97 12/30 0715 98 High flow 10 60 nasal cannula 12/30 799 36.2 72 14 132/36 60 100 12/29 0645 36.2 71 16 142/39 65 100 12/29 729 36.2 75 13 147/40 67 100 10/17 [...] 2300 36.6 73 35 158/51 86 85 /16 2245 36.7 70 35 151/52 85 96 12/28 2230 36.8 75 34 143/53 84 95 12/28 2215 36.5 73 33 144/52 80 99 12/28 2200 36.7 69 23 133/43 67 100 16 2145 36.7 69 27 122/32 57 100 12/28 2130 36.6 69 21 148/38 66 97 16 2115 36.7 69 34 136/35 61 97 12/28 2100 36.5 75 34 142/37 65 98 12/28 2044 36.7 73 43 150/41 72 98 12/28 [...] 1900 36.9 72 29 162/49 80 99 16 1812 37.0 69 20 143/40 65 100 12/28 1800 37.0 71 28 144/42 68 99 12/28 1745 37.0 71 39 168/53 84 95 16 1730 37.0 72 29 152/45 75 94 16 1715 37.1 74 38 142/43 71 98 16 1701 146/65 94 16 1701 37.1 74 35 141/42 70 94 16 1700 37.1 72 28 143/42 71 94 16 1645 37.1 72 28 142/39 67 95 16 1615 37.1 73 22 131/38 63 96 16 1601 141/61 88 16 1601 37.1 69 23 131/36 61 100 /16 1600 37.1 69 30 133/36 62 99 16 1545 37.1 75 29 135/37 65 98 /16 1530 37.1 75 20 130/36 61 100 /16 1515 37.0 75 26 129/35 60 97 /16 1500 140/73 93 10/16 1500 37.0 69 25 139/35 62 96 [...] 122/38 61 100 PATIENT WEIGHT: Weight (lb): 271Weight (oz): 9.75Weight (kg): 123.200 Status post:CABG, MVR, and ILAA Physical ExamGeneral appearance: chronically ill appearing, respiratory supportENT: moist mucosal membranesNeck: no JVDCardiovascular: CV assessment: regular rate and rhythmRespiratory: decreased breath sounds, on oxygenAbdomen: obeseGenitourinary: no flank pain, no urinary catheterUpper extremity: UE assessment: normal temperature, no edemaLower extremity: LE assessment: edemaNeuro/[employer]: alert, 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Skin: dry, intactPsychiatry: normal affect, normal mood ResultsRadiology data:Recent Impressions:RADIOLOGY - XR CHEST 1 V 12/29 0617 [...] Diagnosis, Assessment Plan Free Text DxA P NotesFree Text DxA P Notes:Ms Giles is a 76 y/o Femal w/ PMHx: CAD, HLD, T2DM, RONA (CPAP at home), smoker,Crohn's disease, AF s/p ablation (on Xarelto), s/p PPM and lymphedema. Dr. Ramos is consulted for CAD s/p CABG, MVR. - CAD s/p CABG, MVR, and ILAA. post-op per CTS and critical care On Plavix, aspirin, beta-delma, statin volume management per Nephrology rotating bipap with high flow NC as tolerated - Chr AF s/p PPM/ablation. Rate controlled, paced rhythm. had ILAA during bypass - HTN. BP stable - HLD. On statins. - Crohn's disease. Per IM. -MARCELLO - resolvingper Nephrology -Resp insufficiency on BIPAP/high flow NC as tolerated per critical care -Diastolic CHF/volume overload diuretic management per nephrology/CTS continue supportive carePT/OT as tolerated at 1036 at 1436 RPT #:[id number] OF REPORTPRProgress [id number]:27:00G.[id number] e for patient mcoqUVFEADFESLIFVW0337-07-31Y34:36:54 HC ACL 2021-12-29 08:18:00 [id number] TSgzjZGah+3u oChftiU3IuDa1s+yFy6jjGSs5895-80-20U08:18:[address] [facility] ([facility])Critical Care Progress NoteREPORT#:[id number] REPORT STATUS: SignedDATE:12/29/21 TIME: 08 PATIENT: KIAH GILES UNIT #: [id number]#: [id number] ROOM/BED: 2205-1DOB: [birth year] AGE: 76 SEX: F ATTEND: Jeffry Mroe MDADM AUTHOR: Solange Mohamud MD * ALL edits or amendments must be made on the electronic/computer document * SubjectiveChief complaint:CABG/MVRHPI:76-year-old morbidly obese female with history of HTN, HL, IDDM, smoking, RONA onCPAP and home O2 as needed, macular degeneration, Crohn's disease on immunosuppressant medications, and chronic Afib s/p ablation and PPM (on Xarelto), who was admitted recently with heart failure symptoms. Patient underwent elective cardiac cath that showed severe multivessel coronary artery disease notsuitable for percutaneous intervention. 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 She went for surgical revascularization today and preop JORDEN revealed severe mitral regurgitation. After discussing new findings with family, patient underwent MVR (31 Magna valve), CABG x 1 (ROBERTS-LAD), ILAA and pericardectomy on 12/19/2021. Has EF of 45%. Crystalloid 1 L, urine output 700, Cell Saver 700. She is a-paced at baseline. Surgery went well and patient was transferred to CVICU postop in a stable surgical condition. She is currentlyintubated on 2 mics of epinephrine, 2 mics of Levophed and insulin drip. CI 3.0,SvO2 in 60%s, CVP 15 and PAP in 60s. Comments:No new events last nightDecreasing oxygen requirementContinue to require BiPAP on and offImproving urine output with diuresisLower blood sugar levelsStill with prolonged QTCAfebrile Review of Systems Free Text ROS NotesFree Text ROS Notes: Due to patient condition, the patient is unable to provide subjective data and therefore a comprehensive review of systems was not completed.All data and labs were reviewed and discussed with RN. Objective GeneralVS/I OLast Documented: Result Date Time Pulse Ox 100 [...] scale Measurement Method PATIENT WEIGHT: Weight (lb): 271Weight (oz): 9.75Weight (kg): 123.200 Medications:Active Meds + DC'd Last 24 HrsFurosemide (LASIX 40 mg/4 mL INJECTION) 40 MG ONCE ONE IV (DC) Dextrose/Water (DEXTROSE 50% W SYRINGE) 0 .STK-MED ONE IV (DC) Lorazepam (ATIVAN) 0.25 MG ONCE ONE PO (DC) Albumin Human (ALBUMINAR-25%) 50 ML ONCE ONE IV (DC) Potassium Chloride (POTASSIUM CHLORIDE 20MEQ TAB.ER) 40 MEQ ONCE ONE PO (DC) Insulin Glargine (Lantus/Semglee) 30 UNIT BID SUBQ Albumin Human (ALBUMINAR-25%) 50 ML ONCE ONE IV (DC) Furosemide (LASIX 40 mg/4 mL INJECTION) 40 MG BID 9A 5P IV Acetazolamide (DIAMOX) 500 MG Q12HR IV Insulin Glargine (Lantus/Semglee) 20 UNIT BID SUBQ (DC) Sterile Water (WATER FOR INJECTION) 5 ML ASDIR PRN IV Sterile Water (WATER FOR INJECTION) 5 ML ASDIR PRN IV Sodium Chloride (SODIUM CHLORIDE) 4 ML RTBID NEB Melatonin (Melatonin) 3 MG BEDTIME PO Sodium Chloride (SODIUM CHLORIDE) 10 ML BID IV Sodium Chloride (SODIUM CHLORIDE) 10 ML ASDIR PRN IV Pantoprazole (PROTONIX) 40 MG DAILY PO Dexmedetomidine/Sodium Chloride (PRECEDEX 1000MCG/NS 250ML) 250 ML ASDIR IV Bisacodyl (DULCOLAX) 10 MG DAILY PRN PRN RECTAL Lactulose (LACTULOSE) 20 GM DAILY PRN PRN PO Magnesium Hydroxide (MILK OF MAGNESIA) 30 ML DAILY PRN PRN PO Aspirin (ASPIRIN) 81 MG DAILY PO Clopidogrel Bisulfate (Plavix) 75 MG DAILY PO Cyanocobalamin (Vitamin B-12 500 mcg tab) 500 MCG DAILY PO Ferrous Sulfate (FERROUS SULFATE) 325 MG DAILY PO Metolazone (metOLazone) 5 MG DAILY PO Polyethylene [...] (CKD) Sodium Chloride (SODIUM CHLORIDE 0.9%) 99 MLAcetylcysteine (MUCOMYST FOR RT) 200 MG RTQ6H NEB Albuterol/Ipratropium (DUONEB) 3 ML RTQ6H NEB Bisacodyl (DULCOLAX) 10 MG ONCE PRN RECTAL Dopamine HCl/Dextrose (DOPamine 400MG/D5W 250ML) 250 ML ASDIR IV Milrinone Lactate/Dextrose (MILRINONE 20MG/D5W 100ML) 100 ML ASDIR IV (CKD) Vasopressin (VASOSTRICT 20 Unit/NS 100ML) 100 ML ASDIR IV (CKD) Acetaminophen (TYLENOL) 650 MG Q4H PRN PRN RECTAL Calcium Chloride (CALCIUM CHLORIDE) 1 GM ASDIR PRN IV Dextrose/Water (DEXTROSE 10% IN WATER) 125 ML ASDIR PRN IV (CKD) Dextrose/Water (DEXTROSE 10% IN WATER) 250 ML ASDIR PRN IV (CKD) Glucagon (GLUCAGON) 1 MG ASDIR PRN IM Magnesium Sulfate (MAGNESIUM SULFATE 4GM/SWFI 100ML) 100 ML ASDIR PRN IV Magnesium Sulfate (MAGNESIUM SULFATE 2GM/SWFI 50ML) 50 ML ASDIR PRN IV Magnesium Sulfate/Dextrose (MAGNESIUM SULFATE 1GM/D5W 100ML) 100 ML ASDIR PRN IV Nitroglycerin/Dextrose (NITROGLYCERIN 50,000MCG/D5W 250ML) 250 ML ASDIR IV Norepinephrine Bitartrate (NOREPINEPHRINE 8 MG/NS 250 ML) 250 ML TITRATE IV Potassium Chloride (KCL 20MEQ/SWFI 100ML) 100 ML ASDIR PRN IV Sodium Bicarbonate (SODIUM BICARBONATE) 50 MEQ ASDIR PRN IV Ondansetron HCl (ZOFRAN) 4 MG Q6H PRN PRN IV ResultsFindings/data:Laboratory Tests 12/29 12/29 12/29 12/29 0536 0300 0200 0054 Blood Gas Puncture Site Art Line Art Line Art Line Art Line O2 [...] - 26.0 MMOL/L) 40.1 *H 42.4 *H 42.4 *H 42.8 *H ABG Total CO2 42.4 44.7 45.0 45.3 ABG Base Excess (-4.0 - 4.0 MMOL/L) 14.5 H 16.9 H 16.3 H 16.6 H ABG Hematocrit (33.0 - 45.0 %) 23 L 24 L 23 L 22 L ABG Hemoglobin (11.0 - 15.0 G/DL) 7.8 L 8.2 L 7.9 L 7.5 L Martin Test N/A Sodium (134 - 147 MEQ/L) 144 143 144 143 Potassium (3.4 - 5.0 MEQ/L) 3.9 4.0 4.0 4.1 Chloride (100 - 108 MEQ/L) 101 99 L 99 L 98 L Ionized Calcium (1.12 - 1.32 MMOL/L) 1.34 H 1.34 H 1.35 H 1.34 H Lactic Acid [...] - 26.0 MMOL/L) 41.2 *H 40.6 *H 39.9 *H ABG Total CO2 43.4 42.7 42.2 ABG Base Excess (-4.0 - 4.0 MMOL/L) 15.7 H 15.7 H 14.2 H ABG Hematocrit (33.0 - 45.0 %) 24 L 25 L 24 L ABG Hemoglobin (11.0 - 15.0 G/DL) 8.2 L 8.5 L 8.3 L Martin Test N/A Sodium (134 - 147 MEQ/L) 144 143 142 Potassium (3.4 - 5.0 MEQ/L) 3.5 3.6 3.8 Chloride (100 - 108 MEQ/L) 99 L 98 L 95 L Ionized Calcium (1.12 - 1.32 MMOL/L) 1.33 H 1.35 H 1.27 Lactic Acid (0.9 - 1.7 mmol/l) 0.8 L 0.7 L 0.7 L Temperature (F) 98.1 98 98 O2 Delivery Device Cannula Cannula CPAP FiO2 (%) 40 Laboratory Tests 12/29 12/29 12/29 12/29 12/29 0536 0536 0355 0352 5743 Chemistry Sodium (134 - 147 mEq/L) 144 [...] - 1.0 mg/dL) 1.2 H 1.1 H 1.2 H POC Glucose (70 - 110 MG/DL) 126 H 120 H POC Glucose (mg/dL) (70 - 110 MG/DL) 125 H 106 120 H 12/28 12/28 12/28 12/28 12/28 2351 2332 2100 6 2054 Chemistry Sodium (134 - 147 mEq/L) 145 [...] 110 MG/DL) 139 H 106 162 H 225 H POC Glucose (mg/dL) (70 - 110 [...] (Auto) (14.0 - 32.0 %) 4.5 L [place] % (Auto) (4.8 - 9.0 %) 8.8 Eos % (Auto) (0.3 - 3.7 %) 1.4 Baso % (Auto) (0.0 - 2.0 %) 0.1 Neut # (Auto) (2.0 - 7.6 x10 3/uL) 7.48 Lymph # (Auto) (1.0 - 3.8 x10 3/uL) 0.40 L [place] # (Auto) (0.1 - 0.8 x10 3/uL) 0.79 Eos # (Auto) (0.0 - 0.2 x10 3/uL) 0.13 Baso # (Auto) (0.0 - 0.2 x10 3/uL) 0.01 Abs Immat Gran (auto) (0.00 - 0.03 x10 3/uL) 0.16 H Add Manual Diff NO Immature Gran % (0.0 - 2.0 %) 1.8 Nucleated RBC % (0 - 0 %) 0.7 H Nucleated RBCs # (Man) (0.0 - 0.1 x10 3/uL) 0.06 Laboratory Tests 12/29/21 0355:[Embedded Image Not Available] 12/28/21 2100:[Embedded Image Not Available] 12/28/21 1134:[Embedded Image Not Available] Radiology dataRecent Impressions:RADIOLOGY - XR CHEST 1 V 12/29 0617 Report Impression - Status: SIGNED Entered: 12/29/2021 0702 IMPRESSION: 1. The intracardiac pacer leads are grossly unchanged. 2. There is no significant interval change in generalized right pulmonary opacification. 3. There is mild improved aeration of both lung bases. 4. No pneumothorax is visible. Impression By: [email or web address] - Bill Kern M.D. Free Text Obj NotesFree Text Obj Notes:General appearance: elderly female in no acute distress, interactiveHEENT: atraumatic, normocephalic, moist mucosal membranesNeck: full range of motion, supple/no meningismusCardiovascular: S1S2 regular rate and rhythm, a-pacedRespiratory: symmetric expansion, no acute respiratory distressAbdomen: soft, obese, non-tender, no distention, no guardingGenitourinary: [place] with clear urineExtremities: pedal pulses palpable, moves all, no clubbing, no cyanosis, LE edema 1+ bilateralMusculoskeletal: normal inspection, no muscle spasmNeuro/[employer]ION [employer]:Awake but lethargic, easily arousable,, CNII-XII grossly intact, no motor deficitsSkin: dry, intact and clean surgery dressing Treatment Prophylaxis Treatment ProphylaxisDrain(s)/tube(s): Drain(s)/tube(s): chest (x3) Diagnosis, Assessment PlanProblem list/A P: 1. S/P MVR (mitral valve replacement) 2. S/P CABG x 1 3. Postoperative pulmonary dysfunction after cardiac surgery 4. Severe mitral regurgitation 5. CAD (coronary artery disease) 6. CKD (chronic kidney disease) 7. Immunosuppressed status 8. RONA on CPAP 9. Chronic a-fib 10. Crohn disease Free text A P:76-year-old morbidly obese female with history of HTN, HL, IDDM, smoking, RONA onCPAP and home O2 as needed, macular degeneration, Crohn's disease on immunosuppressant medications, and chronic Afib s/p ablation and PPM (on Xarelto), who was admitted recently with heart failure symptoms. Patient underwent elective cardiac cath that showed severe multivessel coronary artery disease notsuitable for percutaneous intervention. 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 She went for surgical revascularization today and preop JORDEN revealed severe mitral regurgitation. After discussing new findings with family, patient underwent MVR (31 Magna valve), CABG x 1 (ROBERTS-LAD), ILAA and pericardectomy on 12/19/2021. Has EF of 45%. Crystalloid 1 L, urine output 700, Cell Saver 700. She is a-paced at baseline. Surgery went well and patient was transferred to CVICU postop in a stable surgical condition. She is currentlyintubated on 2 mics of epinephrine, 2 mics of Levophed and insulin drip. CI 3.0,SvO2 in 60%s, CVP 15 and PAP in 60s. Remains neuro intact, multimodal pain control, avoid opiatesPatient is on BiPAP at night for underlying RONA home CPAP as needed 14-18.She is on nasal cannula [address] shows worsening pulmonary edema and atelectasis. Also has pleural effusions ultrasound not a big pocket to safely tap.Duo nebs and Mucomyst. Encourage incentive spirometry. Family at bedside during spirometry with her.Patient is being diuresed with Lasix twice daily and Diamox twice daily. She does have respiratory acidosis with metabolic alkalosis which is balanced with apH of 7.39.Renal followingWhite count is stable. No signs of infection or fever. Continue to monitor. Hemoglobin is stable.Continue beta-delma and amiodarone. Paced rhythmPatient is on insulin drip for control of her sugars. Increase Lantus to 30 twice daily.Patient still has [place] for accurate ins and outs Total critical care time 40 minutes 12/29Waxing and waning mental status, continue melatonin at bedtimeContinue supplemental oxygen and titrate FiO2 to keep saturation more than 90%, on 6 L nasal cannula, alternating with BiPAP 18/7 and 30%Continue follow ABGs and chest x-raysInhaled bronchodilators as neededEncourage incentive spirometryWhite count is stable. No signs of infection or fever. Continue to monitor. Hemoglobin is stable.Continue beta-delma and amiodarone. Diuresis with Bumex 500 mg every 12 hours. Received 1 dose of Lasix IV x1 earlier in the morningMonitor kidney function and trend creatinineMonitor and replete electrolytesStrict I O'sCardiac diet with bowel regimenDecreased Lantus insulin to 20 5 in the morning and 20 at nightContinue monitoring blood glucoseVTE prophylaxisStress ulcer prophylaxisDiscussed with ICU team, CV surgery and daughterCritical care time 39 minutes Consultants: cardiology, cardiovascular surgery at 2143 RPT #:[id number] OF REPORTPRProgress [id number]:18:00G.[id number] e for patient oxjgJXRLMWQOJFCFXP6064-09-52R20:44:13 [facility] 2021-12-28 17:02:00 [id number] NBxaMxHWZ05D q3GT34GyTMJpqHfzZIN10H5C3761-23-47O82:02:[address] [facility] ([facility]ERCritical Care Progress NoteREPORT#:[id number] REPORT STATUS: SignedDATE:12/28/21 TIME: 1702 PATIENT: KIAH GILES UNIT #: [id number]#: [id number] [address] [birth year] AGE: 76 SEX: F ATTEND: Jeffry More MDADM AUTHOR: Ricky Goodwin MD * ALL edits or amendments must be made on the electronic/computer document * SubjectiveChief complaint:CABG/MVRHPI:76-year-old morbidly obese female with history of HTN, HL, IDDM, smoking, RONA onCPAP and home O2 as needed, macular degeneration, Crohn's disease on immunosuppressant medications, and chronic Afib s/p ablation and PPM (on Xarelto), who was admitted recently with heart failure symptoms. Patient underwent elective cardiac cath that showed severe multivessel coronary artery disease notsuitable for percutaneous intervention. 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 She went for surgical revascularization today and preop JORDEN revealed severe mitral regurgitation. After discussing new findings with family, patient underwent MVR (31 Magna valve), CABG x 1 (ROBERTS-LAD), ILAA and pericardectomy on 12/19/2021. Has EF of 45%. Crystalloid 1 L, urine output 700, Cell Saver 700. She is a-paced at baseline. Surgery went well and patient was transferred to CVICU postop in a stable surgical condition. She is currentlyintubated on 2 mics of epinephrine, 2 mics of Levophed and insulin drip. CI 3.0,SvO2 in 60%s, CVP 15 and PAP in 60s. Comments:Interval history- And was on the BiPAP but she did not want to wear it at night most of the time. Was intermittently on nasal cannula about 7 L. Chest x-ray shows worsening bilateral infiltrates and pulmonary edema Objective GeneralVS/I OLast Documented: Result Date Time Pulse Ox 97 12/28 1515 B/P 129/35 12/28 1515 B/P Mean 60 12/28 1515 Temp 37.0 12/28 151 Pulse 75 12/28 1515 Resp 26 12/28 1515 O2 Delivery High flow nasal cannula 12/28 [...] scale Measurement Method PATIENT WEIGHT: Weight (lb): 266Weight (oz): 1.57Weight (kg): 120.700 Medications:Active Meds + DC'd Last 24 HrsInsulin Glargine (Lantus/Semglee) 30 UNIT BID SUBQ Albumin Human (ALBUMINAR-25%) 50 ML ONCE ONE IV (DC) Furosemide (LASIX 40 mg/4 mL INJECTION) 40 MG Q24H IV (CAN) Furosemide (LASIX 40 mg/4 mL INJECTION) 40 MG BID 9A 5P IV Acetazolamide (DIAMOX) 500 MG Q12HR IV Insulin Glargine (Lantus/Semglee) 20 UNIT BID SUBQ (DC) Potassium Chloride (POTASSIUM CHLORIDE 20MEQ TAB.ER) 40 MEQ ONCE ONE PO (DC) Sterile Water (WATER FOR INJECTION) 5 ML ASDIR PRN IV Sterile Water (WATER FOR INJECTION) 5 ML ASDIR PRN IV Sodium Chloride (SODIUM CHLORIDE) 4 ML RTBID NEB Melatonin (Melatonin) 3 MG BEDTIME PO Sodium Chloride (SODIUM CHLORIDE) 10 ML BID IV Sodium Chloride (SODIUM CHLORIDE) 10 ML ASDIR PRN IV Pantoprazole (PROTONIX) 40 MG DAILY PO Dexmedetomidine/Sodium Chloride (PRECEDEX 1000MCG/NS 250ML) 250 ML ASDIR IV Bisacodyl (DULCOLAX) 10 MG DAILY PRN PRN RECTAL Lactulose (LACTULOSE) 20 GM DAILY PRN PRN PO Magnesium Hydroxide (MILK OF MAGNESIA) 30 ML DAILY PRN PRN PO Aspirin (ASPIRIN) 81 MG DAILY PO Clopidogrel Bisulfate (Plavix) 75 MG DAILY PO Cyanocobalamin (Vitamin B-12 500 mcg tab) 500 MCG DAILY PO Ferrous Sulfate (FERROUS SULFATE) 325 MG DAILY PO Metolazone (metOLazone) 5 MG DAILY PO Polyethylene [...] (CKD) Sodium Chloride (SODIUM CHLORIDE 0.9%) 99 MLAcetylcysteine (MUCOMYST FOR RT) 200 MG RTQ6H NEB Albuterol/Ipratropium (DUONEB) 3 ML RTQ6H NEB Bisacodyl (DULCOLAX) 10 MG ONCE PRN RECTAL Dopamine HCl/Dextrose (DOPamine 400MG/D5W 250ML) 250 ML ASDIR IV Milrinone Lactate/Dextrose (MILRINONE 20MG/D5W 100ML) 100 ML ASDIR IV (CKD) Vasopressin (VASOSTRICT 20 Unit/NS 100ML) 100 ML ASDIR IV (CKD) Acetaminophen (TYLENOL) 650 MG Q4H PRN PRN RECTAL Calcium Chloride (CALCIUM CHLORIDE) 1 GM ASDIR PRN IV Dextrose/Water (DEXTROSE 10% IN WATER) 125 ML ASDIR PRN IV (CKD) Dextrose/Water (DEXTROSE 10% IN WATER) 250 ML ASDIR PRN IV (CKD) Glucagon (GLUCAGON) 1 MG ASDIR PRN IM Magnesium Sulfate (MAGNESIUM SULFATE 4GM/SWFI 100ML) 100 ML ASDIR PRN IV Magnesium Sulfate (MAGNESIUM SULFATE 2GM/SWFI 50ML) 50 ML ASDIR PRN IV Magnesium Sulfate/Dextrose (MAGNESIUM SULFATE 1GM/D5W 100ML) 100 ML ASDIR PRN IV Nitroglycerin/Dextrose (NITROGLYCERIN 50,000MCG/D5W 250ML) 250 ML ASDIR IV Norepinephrine Bitartrate (NOREPINEPHRINE 8 MG/NS 250 ML) 250 ML TITRATE IV Potassium Chloride (KCL 20MEQ/SWFI 100ML) 100 ML ASDIR PRN IV Sodium Bicarbonate (SODIUM BICARBONATE) 50 MEQ ASDIR PRN IV Ondansetron HCl (ZOFRAN) 4 MG Q6H PRN PRN IV ResultsFindings/data:Laboratory Tests 12/28 12/28 12/28 12/27 2610 6158 [id number] Blood Gas Puncture Site Art Line Art Line Art Line Art Line O2 Saturation (90 - 100 %) 94.3 96.7 89.7 L 95.7 ABG pH (7.35 - 7.45) 7.396 7.349 L 7.408 7.378 ABG pCO2 (35.0 - 45 mmHg) 65.9 *H 72.2 *H 63.1 *H 71.2 *H ABG pO2 (80 - 100.0 mmHg) 74.6 L 95.9 58.6 L 86.3 ABG PO2/FiO2 Ratio (mm/Hg) 239.75 ABG HCO3 (22.0 - 26.0 MMOL/L) 40.6 *H 39.9 *H 40.0 *H 41.9 *H ABG Total CO2 42.7 42.2 42.0 44.1 ABG Base Excess (-4.0 - 4.0 MMOL/L) 15.7 H 14.2 H 15.2 H 16.7 H ABG Hematocrit (33.0 - 45.0 %) 25 L 24 L 25 L 24 L ABG Hemoglobin (11.0 - 15.0 G/DL) 8.5 L 8.3 L 8.4 L 8.2 L Martin Test N/A Sodium (134 - 147 MEQ/L) 143 142 144 146 Potassium (3.4 - 5.0 MEQ/L) 3.6 3.8 3.7 3.8 Chloride (100 - 108 MEQ/L) 98 L 95 L 99 L 100 Ionized Calcium (1.12 - 1.32 MMOL/L) 1.35 H 1.27 1.32 1.25 Lactic Acid (0.9 - 1.7 [...] 12/28 12/28 12/28 12/28 1134 1134 1042 0736 0340 Chemistry Sodium (134 - 147 mEq/L) 142 [...] (Auto) (14.0 - 32.0 %) 5.4 L [place] % (Auto) (4.8 - 9.0 %) 10.0 H Eos % (Auto) (0.3 - 3.7 %) 1.6 Baso % (Auto) (0.0 - 2.0 %) 0.1 Neut # (Auto) (2.0 - 7.6 x10 3/uL) 6.51 Lymph # (Auto) (1.0 - 3.8 x10 3/uL) 0.44 L [place] # (Auto) (0.1 - 0.8 x10 3/uL) 0.81 H Eos # (Auto) (0.0 - 0.2 x10 3/uL) 0.13 Baso # (Auto) (0.0 - 0.2 x10 3/uL) 0.01 Abs Immat Gran (auto) (0.00 - 0.03 x10 3/uL) 0.19 H Add Manual Diff NO Immature Gran % (0.0 - 2.0 %) 2.3 H Nucleated RBC % (0 - 0 %) 0.9 H Nucleated RBCs # (Man) (0.0 - 0.1 x10 3/uL) 0.07 Laboratory Tests 12/28/21 1134:[Embedded Image Not Available] 12/28/21 0340:[Embedded Image Not Available] Radiology dataRecent Impressions:RADIOLOGY - XR CHEST 1 V 12/28 0709 Report Impression - Status: SIGNED Entered: 12/28/2021 0836 IMPRESSION: 1. Moderate to severe enlarged cardiac silhouette. 2. Severe alveolar pulmonary edema versus pneumonia. Progression. 3. Moderate bilateral pleural effusions. Impression By: [email or web address] - Leonard Escobar M.D. Free Text Obj NotesFree Text Obj Notes:General appearance: elderly female in no acute distress, interactiveHEENT: atraumatic, normocephalic, moist mucosal membranesNeck: full range of motion, supple/no meningismusCardiovascular: S1S2 regular rate and rhythm, a-pacedRespiratory: symmetric expansion, no acute respiratory distressAbdomen: soft, obese, non-tender, no distention, no guardingGenitourinary: [place] with clear urineExtremities: pedal pulses palpable, moves all, no clubbing, no cyanosis, LE edema 1+ bilateralMusculoskeletal: normal inspection, no muscle spasmNeuro/[employer] PRE[employer]ION B[employer]AU: Alert and oriented,, CNII-XII grossly intact, no motor deficitsSkin: dry, intact and clean surgery dressing Diagnosis, Assessment PlanProblem list/A P: 1. S/P MVR (mitral valve replacement) 2. S/P CABG x 1 3. Postoperative pulmonary dysfunction after cardiac surgery 4. Severe mitral regurgitation 5. CAD (coronary artery disease) 6. CKD (chronic kidney disease) 7. Immunosuppressed status 8. RONA on CPAP 9. Chronic a-fib 10. Crohn disease Free text A P:76-year-old morbidly obese female with history of HTN, HL, IDDM, smoking, RONA onCPAP and home O2 as needed, macular degeneration, Crohn's disease on immunosuppressant medications, and chronic Afib s/p ablation and PPM (on Xarelto), who was admitted recently with heart failure symptoms. Patient underwent elective cardiac cath that showed severe multivessel coronary artery disease notsuitable for percutaneous intervention. 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 She went for surgical revascularization today and preop JORDEN revealed severe mitral regurgitation. After discussing new findings with family, patient underwent MVR (31 Magna valve), CABG x 1 (ROBERTS-LAD), ILAA and pericardectomy on 12/19/2021. Has EF of 45%. Crystalloid 1 L, urine output 700, Cell Saver 700. She is a-paced at baseline. Surgery went well and patient was transferred to CVICU postop in a stable surgical condition. She is currentlyintubated on 2 mics of epinephrine, 2 mics of Levophed and insulin drip. CI 3.0,SvO2 in 60%s, CVP 15 and PAP in 60s. Remains neuro intact, multimodal pain control, avoid opiatesPatient is on BiPAP at night for underlying RONA home CPAP as needed 14-18.She is on nasal cannula [address] shows worsening pulmonary edema and atelectasis. Also has pleural effusions ultrasound not a big pocket to safely tap.Duo nebs and Mucomyst. Encourage incentive spirometry. Family at bedside during spirometry with her.Patient is being diuresed with Lasix twice daily and Diamox twice daily. She does have respiratory acidosis with metabolic alkalosis which is balanced with apH of 7.39.Renal followingWhite count is stable. No signs of infection or fever. Continue to monitor. Hemoglobin is stable.Continue beta-delma and amiodarone. Paced rhythmPatient is on insulin drip for control of her sugars. Increase Lantus to 30 twice daily.Patient still has [place] for accurate ins and outs Total critical care time 40 minutes Consultants: cardiology, cardiovascular surgery at [address] [facility] #:[id number] OF REPORTPRProgress [id number]:02:00G.[id number] e for patient [id number]:16:20 [facility] 2021-12-28 14:33:00 [id number] [id number] sXi+OkTQ3hCPXRbsthYIB3Fw0149-11-72D96:33:[address] [facility] ([facility])Nephrology Progress NoteREPORT#:[id number] REPORT STATUS: SignedDATE:12/28/21 TIME: 1433 PATIENT: KIAH GILES UNIT #: [id number]#: [id number] [address] [birth year] AGE: 76 SEX: F ATTEND: Jeffry More AUTHOR: Suki Fuchs MD * ALL edits or amendments must be made on the electronic/computer document * SubjectiveChief complaint:chest painHPI:This is a 76-year-old female who has past medical history of hypertension, diabetes, coronary artery disease, atrial fibrillation who presented with worsening shortness of breath and on further work-up was 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 She was withnormal kidney function prior to surgery and after her surgery she began to develop oliguria. Her procedure was done without any complications but after her surgery she did require pressor support for hypotension and she was intubated for respiratory acidosis and hypoxia and she was treated with vancomycin for infection treatment. When she was seen this morning she continued to have hypotension and her heart rate was paced by her permanent pacemaker and her urine output was 20 to 30/h. Her family at bedside denied anyhistory of kidney disease, kidney stone, chronic NSAID use or any urinary complaints. They also endorse that her blood pressure and diabetes were mostly controlled. 12/28Today she was eating in a chair and appeared comfortable. Objective GeneralVS/I O:Vital Signs: Date Time Temp Pulse Resp B/P B/P Pulse O2 O2 Flow FiO2 Mean Ox Delivery Rate 12/28 2042 [...] 0430 36.7 75 27 139/46 74 93 12/28 0415 74 33 134/134 134 10/ 0400 36.5 75 27 140/43 73 99 12/28 0345 36.5 73 37 132/44 74 85 10/ 0330 36.5 71 27 142/44 74 95 [...] scale Measurement Method PATIENT WEIGHT: Weight (lb): 266Weight (oz): 1.57Weight (kg): 120.700 Physical ExamGeneral appearance: alert, awake, orientedHead/eyes: atraumatic, normocephalicENT: ET tubeNeck: no JVD, no lymphadenopathyCardiovascular: normal heart sounds, regular rate and rhythmRespiratory: aerating well, clear to auscultationAbdomen: soft, no pulsatile massGenitourinary: urinary catheterExtremities: pitting edema, no gangrene, no swelling Treatment Prophylaxis Treatment ProphylaxisDrain(s)/tube(s): Drain(s)/tube(s): chest (x3) Diagnosis, Assessment PlanFree Text A P:This is a 76-year-old female known to have hypertension, diabetes, atrial fibrillation, s/p permanent pacemaker and history of ablation presenting with shortness of breath and 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 Nephrology is following for: 1. Acute kidney injury: Most likely it is prerenal (cardiorenal), she has been hypotensive postoperatively with requirement for pressor support and inotropic support. Plan is to increase inotropic support or pressor support to bring meanarterial pressure above 65 and give albumin with Lasix to see if it helps him diurese. If he does not respond to higher dose Lasix with albumin then I will consider starting him on CRRT to prevent hyper volemia. 2. Hypervolemia: Plan is to give Lasix and if he does not respond to start him on CRRT for extra fluid removal. 3. His electrolytes were all reviewed to be in normal range plan was to monitorand replace as needed. 4. He was receiving vancomycin so plan was to monitor vancomycin trough levels to prevent ATN. . Acute kidney injury: Most likely it is prerenal (cardiorenal), she has been hypotensive postoperatively with requirement for pressor support and inotropic support. She responded to Lasix after her blood pressure improved with higher dose vasopressin and she was given albumin. Plan was to continue twice a day Lasix and albumin for hypervolemia. 2. Hypervolemia: Plan is to give Lasix with albumin twice daily and increase dose if needed. 3. His electrolytes were all reviewed to be in normal range plan was to monitorand replace as needed. 4. He was receiving vancomycin so plan was to monitor vancomycin trough levels to prevent ATN. 12/22 1. Acute kidney injury: Most likely it is prerenal (cardiorenal), she has been hypotensive postoperatively with requirement for pressor support and inotropic support. She responded to Lasix after her blood pressure improved with higher dose vasopressin and she was given albumin. Plan was to continue Lasix and albumin for hypervolemia.Plan to increase dose to reach goal of 1 L negative Q12H. 2. Hypervolemia: Plan is to give Lasix with albumin and increase dose if needed. 3. His electrolytes were all reviewed to be in normal range plan was to monitorand replace as needed. 4. He was receiving vancomycin so plan was to monitor vancomycin trough levels to prevent ATN. 12/23 1. Acute kidney injury: Most likely it is prerenal (cardiorenal), she has been hypotensive postoperatively with requirement for pressor support and inotropic support. She responded to Lasix after her blood pressure improved with higher dose vasopressin and she was given albumin. Plan was to continue Lasix and albumin for hypervolemia.Plan to increase dose to reach goal of 1 L negative Q12H. 2. Hypervolemia: Plan is to give Lasix with albumin and increase dose if needed. 3. Her electrolytes were all reviewed to be in normal range plan was to monitor and replace as needed. 4. She was receiving vancomycin so plan was to monitor vancomycin trough levelsto prevent ATN. 5/ Metabolic alkalosis secondary to diuretics : Plan to give acetazoleamide if worsening. 12/24 1. Acute kidney injury: Resolved, she is responding to lasix. 2. Hypervolemia: Plan to continue lasix as tolerated. 3. Her electrolytes were all reviewed to be in normal range plan was to monitor and replace as needed. 4. She was receiving vancomycin so plan was to monitor vancomycin trough levelsto prevent ATN. 5/ Metabolic alkalosis secondary to diuretics : Plan to give acetazoleamide if worsening. 12/25 1. Acute kidney injury: Resolved, she is responding to lasix. 2. Hypervolemia: Plan to continue lasix as tolerated.Today it was held for metabolic alkalosis. 3. Her electrolytes were all reviewed to be in normal range plan was to monitor and replace as needed. 4. She was receiving vancomycin so plan was to monitor vancomycin trough levelsto prevent ATN. 5/ Metabolic alkalosis secondary to diuretics : Plan to give acetazoleamide if worsening. 12/26 1. Acute kidney injury: Resolved, she is responding to lasix. 2. Hypervolemia: Plan to continue lasix as tolerated.Today she was on low dose drip. 3. Her electrolytes were all reviewed to be in normal range plan was to monitor and replace as needed. 4. She was receiving vancomycin so plan was to monitor vancomycin trough levelsto prevent ATN. 5/ Metabolic alkalosis secondary to diuretics : Plan to give acetazoleamide if worsening. . Acute kidney injury: Resolved, she is responding to lasix. 2. Hypervolemia: Plan to continue lasix as tolerated.Today she was on low dose twice daily lasix. 3. Hypokalemia/hypomagnesemia:secondary to diuretics, plan was to monitor and replace as needed. 4. She was receiving vancomycin so plan was to monitor vancomycin trough levelsto prevent ATN. 5/ Metabolic alkalosis secondary to diuretics : Plan to give acetazoleamide and monitor closely. 12/28 1. Acute kidney injury: Resolved, she is responding to lasix. 2. Hypervolemia: Plan to continue lasix as tolerated.Today she was on low dose twice daily lasix. 3. Hypokalemia/hypomagnesemia:secondary to diuretics, plan was to monitor and replace as needed. 4. She was receiving vancomycin so plan was to monitor vancomycin trough levelsto prevent ATN. 5/ Metabolic alkalosis secondary to diuretics : Plan to give acetazoleamide and monitor closely. 12/28 1. Acute kidney injury: Resolved, she is responding to lasix. 2. Hypervolemia: Plan to continue lasix as tolerated.Today she was on low dose twice daily lasix. 3. Hypokalemia/hypomagnesemia:secondary to diuretics, plan was to monitor and replace as needed. 4. She was receiving vancomycin so plan was to monitor vancomycin trough levelsto prevent ATN. 5/ Metabolic alkalosis secondary to diuretics : Plan to give acetazoleamide and monitor closely. 12/28 1. Acute kidney injury: Resolved, she is responding to lasix. 2. Hypervolemia: Plan to continue lasix as tolerated.Today she was on low dose twice daily lasix. 3. Hypokalemia/hypomagnesemia:secondary to diuretics, plan was to monitor and replace as needed. 4. She was receiving vancomycin so plan was to monitor vancomycin trough levelsto prevent ATN. 5/ Metabolic alkalosis secondary to diuretics : Plan to give acetazoleamide and monitor closely. Consultants: cardiology, cardiovascular surgery at [address] [facility] #:[id number] OF REPORTPRProgress [id number]:33:00G.[id number] e for patient [id number]:37:42 [facility] 2021-12-28 10:48:00 [id number]/Hnp8L3G T6d0oXEAQzm3 i2EJdDaSj3RPisblUqF5BKGg4851-03-39V75:48:[address] [facility] ([facility])Hospitalist Progress NoteREPORT#:[id number] REPORT STATUS: SignedDATE:12/28/21 TIME: 1048 PATIENT: KIAH GILES UNIT #: [id number]#: [id number] [address] [birth year] AGE: 76 SEX: F ATTEND: Jeffry More MDADM AUTHOR: Kat Carreon APRN * ALL edits or amendments must be made on the electronic/computer document * SubjectiveChief complaint:Ambulated short distance today. Fatigue, refused bipap.Still on insulin drip. acute respiratory failure --post CABGHPI: 76 years old female with PMH of macular degeneration, obesity, obstructive sleepapnea (CPAP at home), former smoker, hypertension, hyperlipidemia, diabetes, Crohn's disease, chronic atrial fibrillation status post 3 ablations in the past(on Xarelto), pacemaker placement is admitted to the hospital post cardiac cath . she need CABG . she had sob for years . sob got worse . she was admitted to the hospital in [place] . she had cath 3 weeks ago . she was reffered to here for stents placement . she had cath yesterday . it show multiple vessels CAD . she is recommend CABG . she still feel sob . no cp no nausea no vomiting no fever no abdominal pain no dizziness . Review of SystemsUnable to obtain due to:fatigue Objective GeneralVS/I O:Vital Signs: Date Time Temp Pulse Resp B/P B/P Pulse O2 O2 Flow FiO2 Mean Ox Delivery Rate 12/28 932 36.9 73 29 164/39 71 74 12/28 0830 36.9 72 28 155/44 76 98 12/28 914 36.9 71 14 137/38 64 100 12/28 899 36.9 74 21 136/40 67 99 12/29 0745 36.8 73 26 146/40 72 99 10/16 0830 36.8 75 28 142/39 68 [...] 100 10/15 2132 72 100 40 10/15 2130 36.9 72 23 190/43 72 100 10/15 [...] 1245 37.0 70 30 135/33 58 83 12/27 1230 36.9 70 157/55 83 73 12/27 1215 36.9 73 26 152/52 79 94 [...] scale Measurement Method PATIENT WEIGHT: Weight (lb): 266Weight (oz): 1.57Weight (kg): 120.700 Medications:Active Meds + DC'd Last 24 HrsFurosemide (LASIX 40 mg/4 mL INJECTION) 40 MG Q24H IV (CAN) Furosemide (LASIX 40 mg/4 mL INJECTION) 40 MG BID 9A 5P IV Acetazolamide (DIAMOX) 500 MG Q12HR IV Insulin Glargine (Lantus/Semglee) 20 UNIT BID SUBQ Potassium Chloride (POTASSIUM CHLORIDE 20MEQ TAB.ER) 40 MEQ ONCE ONE PO (DC) Furosemide (LASIX 40 mg/4 mL INJECTION) 40 MG ONCE ONE IV (DC) Potassium Chloride (POTASSIUM CHLORIDE 20MEQ TAB.ER) 20 MEQ ONCE ONE PO (DC) Potassium Chloride (POTASSIUM CHLORIDE 20MEQ TAB.ER) 40 MEQ ONCE ONE PO (DC) Sterile Water (WATER FOR INJECTION) 5 ML ASDIR PRN IV Acetazolamide (DIAMOX) 250 MG Q12HR IV (DC) Sterile Water (WATER FOR INJECTION) 5 ML ASDIR PRN IV Sodium Chloride (SODIUM CHLORIDE) 4 ML RTBID NEB Melatonin (Melatonin) 3 MG BEDTIME PO Sodium Chloride (SODIUM CHLORIDE) 10 ML BID IV Sodium Chloride (SODIUM CHLORIDE) 10 ML ASDIR PRN IV Furosemide (LASIX) 240 MG Q24H IV (DC) IV Miscellaneous Supplies (CONTAINER, BAG) 1 EACHPantoprazole (PROTONIX) 40 MG DAILY PO Dexmedetomidine/Sodium Chloride (PRECEDEX 1000MCG/NS 250ML) 250 ML ASDIR IV Bisacodyl (DULCOLAX) 10 MG DAILY PRN PRN RECTAL Lactulose (LACTULOSE) 20 GM DAILY PRN PRN PO Magnesium Hydroxide (MILK OF MAGNESIA) 30 ML DAILY PRN PRN PO Aspirin (ASPIRIN) 81 MG DAILY PO Clopidogrel Bisulfate (Plavix) 75 MG DAILY PO Cyanocobalamin (Vitamin B-12 500 mcg tab) 500 MCG DAILY PO Ferrous Sulfate (FERROUS SULFATE) 325 MG DAILY PO Metolazone (metOLazone) 5 MG DAILY PO Polyethylene [...] (CKD) Sodium Chloride (SODIUM CHLORIDE 0.9%) 99 MLAcetylcysteine (MUCOMYST FOR RT) 200 MG RTQ6H NEB Albuterol/Ipratropium (DUONEB) 3 ML RTQ6H NEB Bisacodyl (DULCOLAX) 10 MG ONCE PRN RECTAL Dopamine HCl/Dextrose (DOPamine 400MG/D5W 250ML) 250 ML ASDIR IV Milrinone Lactate/Dextrose (MILRINONE 20MG/D5W 100ML) 100 ML ASDIR IV (CKD) Vasopressin (VASOSTRICT 20 Unit/NS 100ML) 100 ML ASDIR IV (CKD) Acetaminophen (TYLENOL) 650 MG Q4H PRN PRN RECTAL Calcium Chloride (CALCIUM CHLORIDE) 1 GM ASDIR PRN IV Dextrose/Water (DEXTROSE 10% IN WATER) 125 ML ASDIR PRN IV (CKD) Dextrose/Water (DEXTROSE 10% IN WATER) 250 ML ASDIR PRN IV (CKD) Glucagon (GLUCAGON) 1 MG ASDIR PRN IM Magnesium Sulfate (MAGNESIUM SULFATE 4GM/SWFI 100ML) 100 ML ASDIR PRN IV Magnesium Sulfate (MAGNESIUM SULFATE 2GM/SWFI 50ML) 50 ML ASDIR PRN IV Magnesium Sulfate/Dextrose (MAGNESIUM SULFATE 1GM/D5W 100ML) 100 ML ASDIR PRN IV Nitroglycerin/Dextrose (NITROGLYCERIN 50,000MCG/D5W 250ML) 250 ML ASDIR IV Norepinephrine Bitartrate (NOREPINEPHRINE 8 MG/NS 250 ML) 250 ML TITRATE IV Potassium Chloride (KCL 20MEQ/SWFI 100ML) 100 ML ASDIR PRN IV Sodium Bicarbonate (SODIUM BICARBONATE) 50 MEQ ASDIR PRN IV Ondansetron HCl (ZOFRAN) 4 MG Q6H PRN PRN IV Physical ExamGeneral appearance: awake, no acute distress, no respiratory distressHead/Eyes: atraumatic, normal conjunctiva/sclera, normal eyelids/periorb., normocephalicNeck: full range of motion, non-tender, no JVDCardiovascular: normal heart sounds, regular rate rhythmRespiratory: decreased breath sounds, clear to auscultationAbdomen: non-tender, normal bowel sounds, soft, no distentionExtremities: edema, moves all, no calf tendernessNeuro/[employer]: alert, 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Skin: dry, intact ResultsFindings/Data:Laboratory Tests 12/28 12/27 9876 [id number] Blood Gas Puncture Site Art Line Art [...] 12/27 12/27 12/27 2306 1903 1707 1600 1501Chemistry Sodium (134 - 147 mEq/L) 145 Potassium [...] (Auto) (14.0 - 32.0 %) 5.4 L [place] % (Auto) (4.8 - 9.0 %) 10.0 H Eos % (Auto) (0.3 - 3.7 %) 1.6 Baso % (Auto) (0.0 - 2.0 %) 0.1 Neut # (Auto) (2.0 - 7.6 x10 3/uL) 6.51 Lymph # (Auto) (1.0 - 3.8 x10 3/uL) 0.44 L [place] # (Auto) (0.1 - 0.8 x10 3/uL) 0.81 H Eos # (Auto) (0.0 - 0.2 x10 3/uL) 0.13 Baso # (Auto) (0.0 - 0.2 x10 3/uL) 0.01 Abs Immat Gran (auto) (0.00 - 0.03 x10 3/uL) 0.19 H Add Manual Diff NO Immature Gran % (0.0 - 2.0 %) 2.3 H Nucleated RBC % (0 - 0 %) 0.9 H Nucleated RBCs # (Man) (0.0 - 0.1 x10 3/uL) 0.07 Radiology data:Recent Impressions:RADIOLOGY - XR CHEST 1 V 12/28 0709 Report Impression - Status: SIGNED Entered: 12/28/2021 0836 IMPRESSION: 1. Moderate to severe enlarged cardiac silhouette. 2. Severe alveolar pulmonary edema versus pneumonia. Progression. 3. Moderate bilateral pleural effusions. Impression By: [email or web address] - Leonard Escobar M.D. Diagnosis, Assessment PlanConsultants: cardiology, cardiovascular surgeryPlan discussed with: patient, family, nurse, interdisc care team Free Text DxA P NotesFree text DxA P notes: 76 years old female with PMH of macular degeneration, obesity, obstructive sleepapnea (CPAP at home), former smoker, hypertension, hyperlipidemia, diabetes, Crohn's disease, chronic atrial fibrillation status post 3 ablations in the past(on Xarelto), pacemaker placement CAD -- multiple vesssels HTNDM HLDCrohn's diseasechronic atrial fibrillation status post 3 ablationsmacular degenerationobesityobstructive sleep apneaacute respiratory failure --post surgery severe mitral valve [...] MVR (31 Magna valve), CABG x 1 (ROBERTS-LAD), ILAA and pericardectomy -- she remain intubated on the vent -- chest tube are in place -on levophed and epinephrine drip -- monitor in CCU 12/20- she was extubated --on bipap now -- NPO --off Levophed/epinephrine, continue vasopressin, inotropes with milrinone, -- chest tube remain in place -- she is stable post surgery 12/21-- she is on high flow O2 -- edema --lasix --chest tube in place --- she is hemodynamic stable -- continue monitor in CCU 12/22- she remain on high O2 CXR show worsening pulmonary venous vascular congestion. --lasix iv tid -- chest tube are [...] drip as nurse -- continue supportive care 12/27On lasix and insulin drips. Back on lantus dose BID, trend glucose.Continue PT/OT.12/28Increase lantus BID. at 1707 at 1251 RPT #:[id number] OF REPORTPRProgress [id number]:48:00G.[id number] e for patient xmtdATWVBZJZKHSJYH1014-88-43R12:08:20 [facility] 2021-12-28 07:38:00 [id number] MoKk7g6uaV3n gKA8ZVPsdsHTyrD18KFxIAsA5336-37-03B53:38:00 [facility])Rehab Progress NoteREPORT#:[id number] REPORT STATUS: SignedDATE:12/28/21 TIME: 0738 PATIENT: KIAH GILES UNIT #: [id number]#: [id number] [place] [facility] [place]DOB: [birth year] AGE: 76 SEX: F ATTEND: Jeffry More [facility] AUTHOR: Herberth Pantoja * ALL edits or amendments must be made on the electronic/computer document * SubjectiveChief complaint:rehab follow-upSitting up in chair.Wears CPAP at home. Does not like BiPAP hereReports decreased edemaSignificant generalized weakness, fatigueNo GOLD/N/V/D14 systems reviewed and negative except that mentioned above. Objective GeneralVS:Vital Signs: Date Time Temp Pulse Resp B/P B/P Pulse O2 O2 Flow FiO2 Mean Ox Delivery Rate 12/28 0645 97.9 73 21 153/56 88 100 12/28 0630 97.9 73 28 147/57 86 100 12/28 0615 97.9 73 25 132/65 90 100 / 0600 97.9 73 27 135/53 81 100 / 0545 97.9 69 30 151/52 85 99 / 0530 97.7 73 33 137/61 91 94 / 0515 98.1 72 18 123/40 63 100 / 0506 71 100 40 / 0500 97.9 73 14 120/40 61 100 / 0445 98.1 72 18 134/44 69 99 / 0430 98.1 75 27 139/46 74 93 / 0415 74 33 134/134 134 / 0400 97.7 75 27 140/43 73 99 /16 0345 97.7 73 37 132/44 74 85 /16 0330 97.7 71 27 142/44 74 95 / 0318 100 High flow 6 nasal cannula 12/28 0315 97.7 71 26 139/44 74 100 / 0300 97.7 69 24 136/42 73 92 10/ 0245 97.7 72 27 141/42 73 92 / 0230 97.9 74 27 138/43 75 88 / 0200 97.9 72 26 136/42 73 89 10/16 0130 98.1 75 25 127/38 66 89 10/16 0100 98.4 72 30 144/49 79 89 10/16 0030 98.6 72 26 156/56 90 98 10/16 0000 98.6 71 20 143/49 79 99 10/15 2330 98.6 70 19 108/36 56 100 10/15 2323 69 99 40 10/15 2300 98.6 71 28 153/43 72 96 10/15 2230 98.6 75 26 153/42 71 93 10/15 2200 98.6 72 26 167/46 75 100 10/15 2132 72 100 40 10/15 2130 98.4 72 23 190/43 72 100 /15 2100 98.4 76 24 150/40 69 100 /15 2030 98.4 74 30 162/47 80 93 12/28 2015 93 High flow 7 nasal cannula /1999 98.2 75 27 165/45 78 87 /15 1945 98.1 73 30 149/36 67 87 10/15 1930 Nasal 6 cannula 15 1930 98.1 75 19 150/37 65 95 10/15 1915 98.1 73 29 149/39 68 91 10/15 1900 98.1 75 30 157/42 73 93 /15 1810 98.2 73 35 139/33 61 93 10/15 1800 98.1 74 31 143/34 63 92 10/15 1745 98.1 74 31 151/40 71 95 /15 1730 98.2 75 27 162/49 81 88 /15 1714 72 28 156/47 80 94 10/15 1700 97.9 74 21 152/47 77 96 10/15 1645 97.9 73 23 149/46 77 97 10/15 1630 97.7 75 31 147/46 77 95 10/15 1615 97.9 72 28 137/41 69 96 10/15 1600 97.9 69 17 140/42 67 99 10/15 1545 97.9 73 22 144/44 71 99 10/15 1530 97.7 72 28 142/43 70 94 10/15 1515 97.9 73 30 132/43 69 96 10/15 1500 98.1 72 24 153/48 79 96 10/15 1448 96 High flow 6 nasal cannula 10/15 1445 98.1 73 28 141/48 77 92 10/ 1430 98.4 72 30 134/37 65 95 10/15 1415 98.4 69 27 92 10/15 1400 98.2 72 23 133/46 70 100 10/ 1345 98.2 72 29 131/48 73 82 10/15 1330 98.4 72 30 152/51 80 93 10/15 1315 98.4 71 29 148/50 76 88 10/ 1300 98.6 72 29 132/42 65 97 10/ 1245 98.6 70 30 135/33 58 83 10/15 1230 98.4 70 157/55 83 73 10/ 1215 98.4 73 26 152/52 79 94 / 1200 98.2 74 29 145/52 77 86 / 1130 98.1 69 24 133/39 64 98 10/ 1115 97.9 70 25 134/39 67 98 / 1100 97.9 75 25 139/40 68 98 / 1051 97.7 73 38 136/39 65 99 / 1045 97.9 73 36 135/38 63 100 / 1030 97.9 72 34 139/40 67 100 / 1015 97.9 75 44 146/42 70 100 / 1000 75 50 135/30 56 96 10/ 0945 74 33 144/30 62 94 10/ 0930 73 44 153/38 70 98 10/ 0915 72 23 156/41 72 97 10/ 0906 96 High flow 7 nasal cannula 10/ 0900 74 26 142/33 59 94 / 0845 98.1 72 42 159/52 82 92 10/ 0830 Nasal 7 cannula / 0830 98.1 74 37 151/48 78 89 10/ 0815 97.9 74 31 155/57 88 68 10/15 0800 97.7 77 33 145/53 80 90 10/ 0745 97.7 72 28 166/51 85 99 PATIENT WEIGHT: Weight (lb): 266Weight (oz): 1.57Weight (kg): 120.700 Medications:Active Meds + DC'd Last 24 HrsFurosemide (LASIX 40 mg/4 mL INJECTION) 40 MG Q24H IV (CAN) Furosemide (LASIX 40 mg/4 mL INJECTION) 40 MG BID 9A 5P IV Acetazolamide (DIAMOX) 500 MG Q12HR IV Insulin Glargine (Lantus/Semglee) 20 UNIT BID SUBQ Potassium Chloride (POTASSIUM CHLORIDE 20MEQ TAB.ER) 40 MEQ ONCE ONE PO (DC) Furosemide (LASIX 40 mg/4 mL INJECTION) 40 MG ONCE ONE IV (DC) Potassium Chloride (POTASSIUM CHLORIDE 20MEQ TAB.ER) 20 MEQ ONCE ONE PO (DC) Potassium Chloride (POTASSIUM CHLORIDE 20MEQ TAB.ER) 40 MEQ ONCE ONE PO (DC) Sterile Water (WATER FOR INJECTION) 5 ML ASDIR PRN IV Insulin Glargine (Lantus/Semglee) 10 UNIT ONCE ONE SUBQ (DC) Potassium Chloride (POTASSIUM CHLORIDE 20MEQ TAB.ER) 40 MEQ ONCE ONE PO (DC) Acetazolamide (DIAMOX) 250 MG Q12HR IV (DC) Sterile Water (WATER FOR INJECTION) 5 ML ASDIR PRN IV Sodium Chloride (SODIUM CHLORIDE) 4 ML RTBID NEB Melatonin (Melatonin) 3 MG BEDTIME PO Sodium Chloride (SODIUM CHLORIDE) 10 ML BID IV Insulin Glargine (Lantus/Semglee) 10 UNIT DAILY SUBQ (DC) Sodium Chloride (SODIUM CHLORIDE) 10 ML ASDIR PRN IV Furosemide (LASIX) 240 MG Q24H IV (DC) IV Miscellaneous Supplies (CONTAINER, BAG) 1 EACHPantoprazole (PROTONIX) 40 MG DAILY PO Dexmedetomidine/Sodium Chloride (PRECEDEX 1000MCG/NS 250ML) 250 ML ASDIR IV Bisacodyl (DULCOLAX) 10 MG DAILY PRN PRN RECTAL Lactulose (LACTULOSE) 20 GM DAILY PRN PRN PO Magnesium Hydroxide (MILK OF MAGNESIA) 30 ML DAILY PRN PRN PO Aspirin (ASPIRIN) 81 MG DAILY PO Clopidogrel Bisulfate (Plavix) 75 MG DAILY PO Cyanocobalamin (Vitamin B-12 500 mcg tab) 500 MCG DAILY PO Ferrous Sulfate (FERROUS SULFATE) 325 MG DAILY PO Metolazone (metOLazone) 5 MG DAILY PO Polyethylene [...] (CKD) Sodium Chloride (SODIUM CHLORIDE 0.9%) 99 MLAcetylcysteine (MUCOMYST FOR RT) 200 MG RTQ6H NEB Albuterol/Ipratropium (DUONEB) 3 ML RTQ6H NEB Bisacodyl (DULCOLAX) 10 MG ONCE PRN RECTAL Dopamine HCl/Dextrose (DOPamine 400MG/D5W 250ML) 250 ML ASDIR IV Milrinone Lactate/Dextrose (MILRINONE 20MG/D5W 100ML) 100 ML ASDIR IV (CKD) Vasopressin (VASOSTRICT 20 Unit/NS 100ML) 100 ML ASDIR IV (CKD) Acetaminophen (TYLENOL) 650 MG Q4H PRN PRN RECTAL Calcium Chloride (CALCIUM CHLORIDE) 1 GM ASDIR PRN IV Dextrose/Water (DEXTROSE 10% IN WATER) 125 ML ASDIR PRN IV (CKD) Dextrose/Water (DEXTROSE 10% IN WATER) 250 ML ASDIR PRN IV (CKD) Glucagon (GLUCAGON) 1 MG ASDIR PRN IM Magnesium Sulfate (MAGNESIUM SULFATE 4GM/SWFI 100ML) 100 ML ASDIR PRN IV Magnesium Sulfate (MAGNESIUM SULFATE 2GM/SWFI 50ML) 50 ML ASDIR PRN IV Magnesium Sulfate/Dextrose (MAGNESIUM SULFATE 1GM/D5W 100ML) 100 ML ASDIR PRN IV Nitroglycerin/Dextrose (NITROGLYCERIN 50,000MCG/D5W 250ML) 250 ML ASDIR IV Norepinephrine Bitartrate (NOREPINEPHRINE 8 MG/NS 250 ML) 250 ML TITRATE IV Potassium Chloride (KCL 20MEQ/SWFI 100ML) 100 ML ASDIR PRN IV Sodium Bicarbonate (SODIUM BICARBONATE) 50 MEQ ASDIR PRN IV Ondansetron HCl (ZOFRAN) 4 MG Q6H PRN PRN IV Functional ProgressFunctional progress: Weightbearing: No Restriction Ambulation Distance: 35FT X2 Progression: Forward Assistance Level: Moderate Assistance Gait Deviations: Shuffling SHORT STEPS AMPAC Mobility: No Document Pain/Education: No Advanced Progression: No Effects of Treatment: Tolerance increased Function Improved Gait quality improved [place] of care decreased Post [place] Precautions: In Bed, rails Up Call Light in Reach Nursing Notified O2 on Pulse OX in Place Family/Sitter at Bedside Review Plan of Care: Yes PT charges: Gait Training [id number] Gait Cmt: Pt IN RECLINER UPON ARRIVAL. Pt IS DEPENDENT 2 PERSON ASSIST WITH SIT TO STAND [...] IN BED. FAMILY IN THE ROOM. NURSE AWARE. If this is the patient's last treatment, this entry serves as the discharge summary: Y Start Time: 945 Stop Time: 1009 Treatment Time: (minutes) 0:24 Completed by: Bea Mathew Conference/Supervising PT: Yes Supervising Therapist: Justin Bush . BED MOBILITY: Yes Sit to Supine: Dependent Scooting in bed: Dependent TRANSFERS: Yes Bed to/from chair: Moderate Assistance Sit to/from stand: Dependent Physical ExamGeneral appearance: alert, awakePsych: alert, oriented x 3HEENT: anicteric, mucosal membranes moistNeck: supple, no JVDCardiovascular: regular rate rhythm, no murmurRespiratory: diminished breath sounds (bases ), on oxygen (Hi flow O2 )Abdomen: bowel sounds present, non-distended, soft, non-tenderSkin: dry, intact, no rash, incisions D/IMusculoskeletal - general: Musculoskeletal - general: swelling (BLE +3), moving all ext AGNeuro/[employer]: alert, 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, normal speech, no motor deficits, no sensory deficits ResultsFindings/Data:Laboratory Tests: 12/28 12/28 12/28 12/27 0340 0339 0130 2306Blood Gas Puncture Site Art Line O2 Saturation [...] L Temperature (F) 97.7 O2 Delivery Device CannulaChemistry Sodium (134 - 147 mEq/L) 145 Potassium [...] mg/dL) 10.0 Magnesium (1.80 - 2.40 mg/dL) 2.19Hematology WBC (4.5 - 11.0 x10 3/uL) 8.1 [...] (Auto) (14.0 - 32.0 %) 5.4 L [place] % (Auto) (4.8 - 9.0 %) 10.0 H Eos % (Auto) (0.3 - 3.7 %) 1.6 Baso % (Auto) (0.0 - 2.0 %) 0.1 Neut # (Auto) (2.0 - 7.6 x10 3/uL) 6.51 Lymph # (Auto) (1.0 - 3.8 x10 3/uL) 0.44 L [place] # (Auto) (0.1 - 0.8 x10 3/uL) 0.81 H Eos # (Auto) (0.0 - 0.2 x10 3/uL) 0.13 Baso # (Auto) (0.0 - 0.2 x10 3/uL) 0.01 Abs Immat Gran (auto) (0.00 - 0.03 x10 3/uL) 0.19 H Add Manual Diff NO Immature Gran % (0.0 - 2.0 %) 2.3 H Nucleated RBC % (0 - 0 %) 0.9 H Nucleated RBCs # (Man) (0.0 - 0.1 x10 3/uL) 0.07 12/27 12/27 12/27 12/27 12/27 2306 1903 [...] (8.0 - 10.5 mg/dL) 10.0 Diagnosis, Assessment PlanFree Text A P:Critical illness myopathyStatus post CABG x1 Status post MVRGeneralized weaknessDeconditioningImpaired ADLs, mobility, gait, balance and endurance postoperative anemiaMorbid obesityCADHLD Crohn's diseaseChronic A. fibHypoxic respiratory failure Plan:Continue PT/OTOut of bed to chairWork on strength, bed mobility, transfers, gaitIncrease enduranceFall precautionsMonitor p.o. intake and nutritionStrict decubitus precautionsMonitor anemiaAdvance therapies as toleratedTolerating regular dietContinue diuresis- monitor strict I OsLasix drip discontinued. Started on IV Lasix and DiamoxWeigh patient dailyAdvance therapies as tolerated Will eventually need IRF when medically ready. TT: 34 mins, reviewing chart, notes, labs, meds, therapy notes, discussed medical mgt, and rehab poc, goals. Answered all questions Rehab attestation:. at 1914 RPT #:[id number] OF REPORTPRProgress [id number]:38:00G.[id number] e for patient [id number]:14:54 [facility] 2021-12-27 19:15:00 [id number] TeBHU6Hj1MwW wGphmSRD+K1hBWRYMPB7WikD4956-40-25O22:15:00 [facility] Progress NoteREPORT#:[id number] REPORT STATUS: SignedDATE:12/27/21 TIME: 1914 PATIENT: KIAH GILES UNIT #: [id number]#: [id number] [address] [birth year] AGE: 76 SEX: F ATTEND: Jeffry More MDADM AUTHOR: Suki Fcuhs MD * ALL edits or amendments must be made on the electronic/computer document * SubjectiveChief complaint:chest painHPI:This is a 76-year-old female who has past medical history of hypertension, diabetes, coronary artery disease, atrial fibrillation who presented with worsening shortness of breath and on further work-up was 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 She was withnormal kidney function prior to surgery and after her surgery she began to develop oliguria. Her procedure was done without any complications but after her surgery she did require pressor support for hypotension and she was intubated for respiratory acidosis and hypoxia and she was treated with vancomycin for infection treatment. When she was seen this morning she continued to have hypotension and her heart rate was paced by her permanent pacemaker and her urine output was 20 to 30/h. Her family at bedside denied anyhistory of kidney disease, kidney stone, chronic NSAID use or any urinary complaints. They also endorse that her blood pressure and diabetes were mostly controlled. 12/27Appearing comfortable, not in any distress,on oxygen support today. Objective GeneralVS/I O:Vital Signs: Date Time Temp Pulse Resp B/P B/P Pulse O2 O2 Flow FiO2 Mean Ox Delivery Rate 12/28 2015 93 High flow 7 nasal cannula 12/27 193 Nasal 6 cannula 12/27 181 36.8 73 35 139/33 61 93 12/27 [...] 1515 36.6 73 30 132/43 69 96 12/27 1500 36.7 72 24 153/48 79 96 12/27 1448 96 High flow 6 nasal cannula 12/27 1445 36.7 73 28 141/48 77 92 12/27 1430 36.9 72 30 134/37 65 95 12/27 1415 36.9 69 27 92 12/27 1400 36.8 72 23 133/46 70 100 12/27 1345 36.8 72 29 131/48 73 82 12/27 1330 36.9 72 30 152/51 80 93 12/27 1315 36.9 71 29 148/50 76 88 12/27 1300 37.0 72 29 132/42 65 97 12/27 1245 37.0 70 30 135/33 58 83 12/27 1230 36.9 70 157/55 83 73 12/27 1215 36.9 73 26 152/52 79 94 12/27 1200 36.8 74 29 145/52 77 86 12/27 1130 36.7 69 24 133/39 64 98 / 1115 36.6 70 25 134/39 67 98 [...] 0745 36.5 72 28 166/51 85 99 /15 0730 36.6 74 42 147/46 73 100 /15 0715 36.6 73 153/47 76 100 10/15 0700 36.7 76 29 148/42 67 90 /15 0638 36.6 99 23 155/47 76 100 /15 0600 36.5 74 25 155/47 75 98 /15 0500 36.4 73 12 141/49 76 85 /15 0400 36.4 74 34 152/52 83 96 / 0321 96 High flow 7 nasal cannula / 0300 36.5 69 24 162/55 88 97 [...] scale Measurement Method PATIENT WEIGHT: Weight (lb): 270Weight (oz): 1.06Weight (kg): 122.500 Physical ExamGeneral appearance: alert, awake, orientedHead/eyes: atraumatic, normocephalicENT: ET tubeNeck: no JVD, no lymphadenopathyCardiovascular: normal heart sounds, regular rate and rhythmRespiratory: aerating well, clear to auscultationAbdomen: soft, no pulsatile massGenitourinary: urinary catheterExtremities: pitting edema, no gangrene, no swelling Treatment Prophylaxis Treatment ProphylaxisDrain(s)/tube(s): Drain(s)/tube(s): chest (x3) Diagnosis, Assessment PlanFree Text A P:This is a 76-year-old female known to have hypertension, diabetes, atrial fibrillation, s/p permanent pacemaker and history of ablation presenting with shortness of breath and 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 Nephrology is following for: 1. Acute kidney injury: Most likely it is prerenal (cardiorenal), she has been hypotensive postoperatively with requirement for pressor support and inotropic support. Plan is to increase inotropic support or pressor support to bring meanarterial pressure above 65 and give albumin with Lasix to see if it helps him diurese. If he does not respond to higher dose Lasix with albumin then I will consider starting him on CRRT to prevent hyper volemia. 2. Hypervolemia: Plan is to give Lasix and if he does not respond to start him on CRRT for extra fluid removal. 3. His electrolytes were all reviewed to be in normal range plan was to monitorand replace as needed. 4. He was receiving vancomycin so plan was to monitor vancomycin trough levels to prevent ATN. . Acute kidney injury: Most likely it is prerenal (cardiorenal), she has been hypotensive postoperatively with requirement for pressor support and inotropic support. She responded to Lasix after her blood pressure improved with higher dose vasopressin and she was given albumin. Plan was to continue twice a day Lasix and albumin for hypervolemia. 2. Hypervolemia: Plan is to give Lasix with albumin twice daily and increase dose if needed. 3. His electrolytes were all reviewed to be in normal range plan was to monitorand replace as needed. 4. He was receiving vancomycin so plan was to monitor vancomycin trough levels to prevent ATN. 12/22 1. Acute kidney injury: Most likely it is prerenal (cardiorenal), she has been hypotensive postoperatively with requirement for pressor support and inotropic support. She responded to Lasix after her blood pressure improved with higher dose vasopressin and she was given albumin. Plan was to continue Lasix and albumin for hypervolemia.Plan to increase dose to reach goal of 1 L negative Q12H. 2. Hypervolemia: Plan is to give Lasix with albumin and increase dose if needed. 3. His electrolytes were all reviewed to be in normal range plan was to monitorand replace as needed. 4. He was receiving vancomycin so plan was to monitor vancomycin trough levels to prevent ATN. 12/23 1. Acute kidney injury: Most likely it is prerenal (cardiorenal), she has been hypotensive postoperatively with requirement for pressor support and inotropic support. She responded to Lasix after her blood pressure improved with higher dose vasopressin and she was given albumin. Plan was to continue Lasix and albumin for hypervolemia.Plan to increase dose to reach goal of 1 L negative Q12H. 2. Hypervolemia: Plan is to give Lasix with albumin and increase dose if needed. 3. Her electrolytes were all reviewed to be in normal range plan was to monitor and replace as needed. 4. She was receiving vancomycin so plan was to monitor vancomycin trough levelsto prevent ATN. 5/ Metabolic alkalosis secondary to diuretics : Plan to give acetazoleamide if worsening. 12/24 1. Acute kidney injury: Resolved, she is responding to lasix. 2. Hypervolemia: Plan to continue lasix as tolerated. 3. Her electrolytes were all reviewed to be in normal range plan was to monitor and replace as needed. 4. She was receiving vancomycin so plan was to monitor vancomycin trough levelsto prevent ATN. 5/ Metabolic alkalosis secondary to diuretics : Plan to give acetazoleamide if worsening. 12/25 1. Acute kidney injury: Resolved, she is responding to lasix. 2. Hypervolemia: Plan to continue lasix as tolerated.Today it was held for metabolic alkalosis. 3. Her electrolytes were all reviewed to be in normal range plan was to monitor and replace as needed. 4. She was receiving vancomycin so plan was to monitor vancomycin trough levelsto prevent ATN. 5/ Metabolic alkalosis secondary to diuretics : Plan to give acetazoleamide if worsening. 10/14 1. Acute kidney injury: Resolved, she is responding to lasix. 2. Hypervolemia: Plan to continue lasix as tolerated.Today she was on low dose drip. 3. Her electrolytes were all reviewed to be in normal range plan was to monitor and replace as needed. 4. She was receiving vancomycin so plan was to monitor vancomycin trough levelsto prevent ATN. 5/ Metabolic alkalosis secondary to diuretics : Plan to give acetazoleamide if worsening. . Acute kidney injury: Resolved, she is responding to lasix. 2. Hypervolemia: Plan to continue lasix as tolerated.Today she was on low dose twice daily lasix. 3. Hypokalemia/hypomagnesemia:secondary to diuretics, plan was to monitor and replace as needed. 4. She was receiving vancomycin so plan was to monitor vancomycin trough levelsto prevent ATN. 5/ Metabolic alkalosis secondary to diuretics : Plan to give acetazoleamide and monitor closely. Consultants: cardiology, cardiovascular surgery at 2120 RPT #:[id number] OF REPORTPRProgress [id number]:15:00G.[id number] e for patient nwenYRTVYTVQIJLLJV7095-60-04S93:20:55 ACL 2021-12-27 13:39:00 [id number] 3Ffs63egeQVk xcN3mNBxBKa1Omg/z6siAjxp0784-83-42M05:39:[address] [facility] ([facility])Critical Care Progress NoteREPORT#:[id number] REPORT STATUS: SignedDATE:12/27/21 TIME: 1339 PATIENT: KIAH GILES UNIT #: [id number]#: [id number] ROOM/BED: [facility] [place]DOB: [birth year] AGE: 76 SEX: F ATTEND: Jeffry More AUTHOR: Ricky Goodwin MD * ALL edits or amendments must be made on the electronic/computer document * SubjectiveChief complaint:CABG/MVRHPI:76-year-old morbidly obese female with history of HTN, HL, IDDM, smoking, RONA onCPAP and home O2 as needed, macular degeneration, Crohn's disease on immunosuppressant medications, and chronic Afib s/p ablation and PPM (on Xarelto), who was admitted recently with heart failure symptoms. Patient underwent elective cardiac cath that showed severe multivessel coronary artery disease notsuitable for percutaneous intervention. 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 She went for surgical revascularization today and preop JORDEN revealed severe mitral regurgitation. After discussing new findings with family, patient underwent MVR (31 Magna valve), CABG x 1 (ROBERTS-LAD), ILAA and pericardectomy on 12/19/2021. Has EF of 45%. Crystalloid 1 L, urine output 700, Cell Saver 700. She is a-paced at baseline. Surgery went well and patient was transferred to CVICU postop in a stable surgical condition. She is currentlyintubated on 2 mics of epinephrine, 2 mics of Levophed and insulin drip. CI 3.0,SvO2 in 60%s, CVP 15 and PAP in 60s. Comments:Interval history- Patient was on lasix drip diuresed well, 1L Bicarb elevated Remained on BiPAP during day. Nasal cannula during the day Objective GeneralVS/I OLast Documented: Result Date Time Pulse Ox 99 [...] scale Measurement Method PATIENT WEIGHT: Weight (lb): 270Weight (oz): 1.06Weight (kg): 122.500 Medications:Active Meds + DC'd Last 24 HrsFurosemide (LASIX 40 mg/4 mL INJECTION) 40 MG Q24H IV Acetazolamide (DIAMOX) 500 MG Q12HR IV Insulin Glargine (Lantus/Semglee) 20 UNIT BID SUBQ Potassium Chloride (POTASSIUM CHLORIDE 20MEQ TAB.ER) 20 MEQ ONCE ONE PO (DC) Potassium Chloride (POTASSIUM CHLORIDE 20MEQ TAB.ER) 40 MEQ ONCE ONE PO (DC) Sterile Water (WATER FOR INJECTION) 5 ML ASDIR PRN IV Insulin Glargine (Lantus/Semglee) 10 UNIT ONCE ONE SUBQ (DC) Potassium Chloride (POTASSIUM CHLORIDE 20MEQ TAB.ER) 40 MEQ ONCE ONE PO (DC) Acetazolamide (DIAMOX) 250 MG Q12HR IV (DC) Sterile Water (WATER FOR INJECTION) 5 ML ASDIR PRN IV Potassium Chloride (POTASSIUM CHLORIDE 20MEQ TAB.ER) 40 MEQ ONCE ONE PO (DC) Sodium Chloride (SODIUM CHLORIDE) 4 ML RTBID NEB Melatonin (Melatonin) 3 MG BEDTIME PO Sodium Chloride (SODIUM CHLORIDE) 10 ML BID IV Acetazolamide (DIAMOX) 250 MG ONCE ONE IV (DC) Sterile Water (WATER FOR INJECTION) 5 ML ASDIR PRN IV (DC) Insulin Glargine (Lantus/Semglee) 10 UNIT DAILY SUBQ (DC) Sodium Chloride (SODIUM CHLORIDE) 10 ML ASDIR PRN IV Furosemide (LASIX) 240 MG Q24H IV (DC) IV Miscellaneous Supplies (CONTAINER, BAG) 1 EACHSterile Water (WATER FOR INJECTION) 5 ML ASDIR PRN IV (DC) Pantoprazole (PROTONIX) 40 MG DAILY PO Furosemide (LASIX 40 mg/4 mL INJECTION) 40 MG Q8H IV (DC) Dexmedetomidine/Sodium Chloride (PRECEDEX 1000MCG/NS 250ML) 250 ML ASDIR IV Bisacodyl (DULCOLAX) 10 MG DAILY PRN PRN RECTAL Lactulose (LACTULOSE) 20 GM DAILY PRN PRN PO Magnesium Hydroxide (MILK OF MAGNESIA) 30 ML DAILY PRN PRN PO Aspirin (ASPIRIN) 81 MG DAILY PO Clopidogrel Bisulfate (Plavix) 75 MG DAILY PO Cyanocobalamin (Vitamin B-12 500 mcg tab) 500 MCG DAILY PO Ferrous Sulfate (FERROUS SULFATE) 325 MG DAILY PO Metolazone (metOLazone) 5 MG DAILY PO Polyethylene [...] (CKD) Sodium Chloride (SODIUM CHLORIDE 0.9%) 99 MLAcetylcysteine (MUCOMYST FOR RT) 200 MG RTQ6H NEB Albuterol/Ipratropium (DUONEB) 3 ML RTQ6H NEB Bisacodyl (DULCOLAX) 10 MG ONCE PRN RECTAL Dopamine HCl/Dextrose (DOPamine 400MG/D5W 250ML) 250 ML ASDIR IV Milrinone Lactate/Dextrose (MILRINONE 20MG/D5W 100ML) 100 ML ASDIR IV (CKD) Vasopressin (VASOSTRICT 20 Unit/NS 100ML) 100 ML ASDIR IV (CKD) Acetaminophen (TYLENOL) 650 MG Q4H PRN PRN RECTAL Calcium Chloride (CALCIUM CHLORIDE) 1 GM ASDIR PRN IV Dextrose/Water (DEXTROSE 10% IN WATER) 125 ML ASDIR PRN IV (CKD) Dextrose/Water (DEXTROSE 10% IN WATER) 250 ML ASDIR PRN IV (CKD) Glucagon (GLUCAGON) 1 MG ASDIR PRN IM Magnesium Sulfate (MAGNESIUM SULFATE 4GM/SWFI 100ML) 100 ML ASDIR PRN IV Magnesium Sulfate (MAGNESIUM SULFATE 2GM/SWFI 50ML) 50 ML ASDIR PRN IV Magnesium Sulfate/Dextrose (MAGNESIUM SULFATE 1GM/D5W 100ML) 100 ML ASDIR PRN IV Nitroglycerin/Dextrose (NITROGLYCERIN 50,000MCG/D5W 250ML) 250 ML ASDIR IV Norepinephrine Bitartrate (NOREPINEPHRINE 8 MG/NS 250 ML) 250 ML TITRATE IV Potassium Chloride (KCL 20MEQ/SWFI 100ML) 100 ML ASDIR PRN IV Sodium Bicarbonate (SODIUM BICARBONATE) 50 MEQ ASDIR PRN IV Ondansetron HCl (ZOFRAN) 4 MG Q6H PRN PRN IV ResultsFindings/data:Laboratory Tests 12/27 12/27 1011 0239 Blood Gas [...] (Auto) (14.0 - 32.0 %) 5.2 L [place] % (Auto) (4.8 - 9.0 %) 12.6 H Eos % (Auto) (0.3 - 3.7 %) 1.3 Baso % (Auto) (0.0 - 2.0 %) 0.1 Neut # (Auto) (2.0 - 7.6 x10 3/uL) 6.57 Lymph # (Auto) (1.0 - 3.8 x10 3/uL) 0.44 L [place] # (Auto) (0.1 - 0.8 x10 3/uL) 1.06 H Eos # (Auto) (0.0 - 0.2 x10 3/uL) 0.11 Baso # (Auto) (0.0 - 0.2 x10 3/uL) 0.01 Abs Immat Gran (auto) (0.00 - 0.03 x10 3/uL) 0.20 H Add Manual Diff NO Immature Gran % (0.0 - 2.0 %) 2.4 H Nucleated RBC % (0 - 0 %) 1.5 H Nucleated RBCs # (Man) (0.0 - 0.1 x10 3/uL) 0.13 H Laboratory Tests 12/27/21 1015:[Embedded Image Not Available] 12/27/21 0238:[Embedded Image Not Available] 12/26/21 1748:[Embedded Image Not Available] Free Text Obj NotesFree Text Obj Notes:General appearance: elderly female in no acute distress, interactiveHEENT: atraumatic, normocephalic, moist mucosal membranesNeck: full range of motion, supple/no meningismusCardiovascular: S1S2 regular rate and rhythm, a-pacedRespiratory: symmetric expansion, no acute respiratory distressAbdomen: soft, obese, non-tender, no distention, no guardingGenitourinary: [place] with clear urineExtremities: pedal pulses palpable, moves all, no clubbing, no cyanosis, LE edemaMusculoskeletal: normal inspection, no muscle spasmNeuro/[employer]: Alert and oriented, intermittently delirious, CNII-XII grossly intact, no motor deficitsSkin: dry, intact and clean surgery dressing Treatment Prophylaxis Treatment ProphylaxisDrain(s)/tube(s): Drain(s)/tube(s): chest (x3) Diagnosis, Assessment PlanProblem list/A P: 1. S/P MVR (mitral valve replacement) 2. S/P CABG x 1 3. Postoperative pulmonary dysfunction after cardiac surgery 4. Severe mitral regurgitation 5. CAD (coronary artery disease) 6. CKD (chronic kidney disease) 7. Immunosuppressed status 8. RONA on CPAP 9. Chronic a-fib 10. Crohn disease Free text A P:76-year-old morbidly obese female with history of HTN, HL, IDDM, smoking, ROAN onCPAP and home O2 as needed, macular degeneration, Crohn's disease on immunosuppressant medications, and chronic Afib s/p ablation and PPM (on Xarelto), who was admitted recently with heart failure symptoms. Patient underwent elective cardiac cath that showed severe multivessel coronary artery disease notsuitable for percutaneous intervention. 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 She went for surgical revascularization today and preop JORDEN revealed severe mitral regurgitation. After discussing new findings with family, patient underwent MVR (31 Magna valve), CABG x 1 (ROBERTS-LAD), ILAA and pericardectomy on 12/19/2021. Has EF of 45%. Crystalloid 1 L, urine output 700, Cell Saver 700. She is a-paced at baseline. Surgery went well and patient was transferred to CVICU postop in a stable surgical condition. She is currentlyintubated on 2 mics of epinephrine, 2 mics of Levophed and insulin drip. CI 3.0,SvO2 in 60%s, CVP 15 and PAP in 60s. Remains neuro intact, multimodal pain control, avoid opiatesPatient needs BiPAP at night for underlying RONA 18/10 and 40%. In the day she is on 6 L nasal cannula coming down on the oxygen requirements. Chest x-ray shows slight improvement in the infiltrates. Patient is doing some spirometry. Encourage incentive spirometry. Continue duo nebs and Mucomyst.Is on Lasix drip. Stop this morning. Will receive Diamox tablet every 12. Intermittent Lasix dosing. Monitor ins and outs. Repeat BMP and ABG and pleat electrolytes.White count is stable. No signs of infection or fever. Continue to monitor. Hemoglobin is stable.Continue beta-delma and amiodarone. Paced rhythmPatient is on insulin drip for control of her sugars. Increase Lantus to 20 twice daily.Patient still has [place] for accurate ins and outs Total critical care time 40 minutes Consultants: cardiology, cardiovascular surgery at 1350 RPT #:[id number] OF REPORTPRProgress [id number]:39:00G.[id number] e for patient scynOLJQFTSUAWOCRM7126-01-23R98:51:12 HC ACL 2021-12-27 10:50:00 [id number] n0hKslY+zZ7q X/tF920OUGk5F9leVUGXLHSH3562-93-74F60:50:00 [facility] Progress NoteREPORT#:[id number] REPORT STATUS: SignedDATE:12/27/21 TIME: 1050 PATIENT: KIAH GILES UNIT #: [id number]#: [id number] [address]DOB: [birth year] AGE: 76 SEX: F ATTEND: Jeffry More MDADM AUTHOR: Kat Carreon APRN * ALL edits or amendments must be made on the electronic/computer document * SubjectiveChief complaint:Doing better, OOB to chair this AM. On insulin drip, lantus dose adjusted acute respiratory failure --post CABGHPI: 76 years old female with PMH of macular degeneration, obesity, obstructive sleepapnea (CPAP at home), former smoker, hypertension, hyperlipidemia, diabetes, Crohn's disease, chronic atrial fibrillation status post 3 ablations in the past(on Xarelto), pacemaker placement is admitted to the hospital post cardiac cath . she need CABG . she had sob for years . sob got worse . she was [place] to the [place] . she had cath 3 weeks ago . she was reffered to here for stents placement . she had cath yesterday . it show multiple vessels CAD . she is recommend CABG . she still feel sob . no cp no nausea no vomiting no fever no abdominal pain no dizziness . Review of SystemsUnable to obtain due to:fatigue Objective GeneralVS/I O:Vital Signs: Date Time Temp Pulse Resp B/P B/P Pulse O2 O2 Flow FiO2 Mean Ox Delivery Rate 12/27 0638 [...] 36.7 69 38 149/53 79 99 12/26 195 95 High flow 7 nasal cannula 12/26 1908 36.7 74 43 159/57 88 96 12/26 [...] scale Measurement Method PATIENT WEIGHT: Weight (lb): 270Weight (oz): 1.06Weight (kg): 122.500 Medications:Active Meds + DC'd Last 24 HrsInsulin Glargine (Lantus/Semglee) 20 UNIT BID SUBQ Insulin Glargine (Lantus/Semglee) 10 UNIT ONCE ONE SUBQ (DC) Potassium Chloride (POTASSIUM CHLORIDE 20MEQ TAB.ER) 40 MEQ ONCE ONE PO (DC) Acetazolamide (DIAMOX) 250 MG Q12HR IV Sterile Water (WATER FOR INJECTION) 5 ML ASDIR PRN IV Potassium Chloride (POTASSIUM CHLORIDE 20MEQ TAB.ER) 40 MEQ ONCE ONE PO (DC) Sodium Chloride (SODIUM CHLORIDE) 4 ML RTBID NEB Melatonin (Melatonin) 3 MG BEDTIME PO Sodium Chloride (SODIUM CHLORIDE) 10 ML BID IV Acetazolamide (DIAMOX) 250 MG ONCE ONE IV (DC) Sterile Water (WATER FOR INJECTION) 5 ML ASDIR PRN IV (DC) Insulin Glargine (Lantus/Semglee) 10 UNIT DAILY SUBQ (DC) Lidocaine HCl (LIDOCAINE 1% 5ML) 5 ML ONCE ONE LOCAL (DC) Sodium Chloride (SODIUM CHLORIDE) 10 ML ASDIR PRN IV Furosemide (LASIX) 240 MG Q24H IV (CKD) IV Miscellaneous Supplies (CONTAINER, BAG) 1 EACHSterile Water (WATER FOR INJECTION) 5 ML ASDIR PRN IV (DC) Pantoprazole (PROTONIX) 40 MG DAILY PO Furosemide (LASIX 40 mg/4 mL INJECTION) 40 MG Q8H IV (DC) Dexmedetomidine/Sodium Chloride (PRECEDEX 1000MCG/NS 250ML) 250 ML ASDIR IV Bisacodyl (DULCOLAX) 10 MG DAILY PRN PRN RECTAL Lactulose (LACTULOSE) 20 GM DAILY PRN PRN PO Magnesium Hydroxide (MILK OF MAGNESIA) 30 ML DAILY PRN PRN PO Aspirin (ASPIRIN) 81 MG DAILY PO Clopidogrel Bisulfate (Plavix) 75 MG DAILY PO Cyanocobalamin (Vitamin B-12 500 mcg tab) 500 MCG DAILY PO Ferrous Sulfate (FERROUS SULFATE) 325 MG DAILY PO Metolazone (metOLazone) 5 MG DAILY PO Polyethylene [...] (CKD) Sodium Chloride (SODIUM CHLORIDE 0.9%) 99 MLAcetylcysteine (MUCOMYST FOR RT) 200 MG RTQ6H NEB Albuterol/Ipratropium (DUONEB) 3 ML RTQ6H NEB Bisacodyl (DULCOLAX) 10 MG ONCE PRN RECTAL Dopamine HCl/Dextrose (DOPamine 400MG/D5W 250ML) 250 ML ASDIR IV Milrinone Lactate/Dextrose (MILRINONE 20MG/D5W 100ML) 100 ML ASDIR IV (CKD) Vasopressin (VASOSTRICT 20 Unit/NS 100ML) 100 ML ASDIR IV (CKD) Acetaminophen (TYLENOL) 650 MG Q4H PRN PRN RECTAL Calcium Chloride (CALCIUM CHLORIDE) 1 GM ASDIR PRN IV Dextrose/Water (DEXTROSE 10% IN WATER) 125 ML ASDIR PRN IV (CKD) Dextrose/Water (DEXTROSE 10% IN WATER) 250 ML ASDIR PRN IV (CKD) Glucagon (GLUCAGON) 1 MG ASDIR PRN IM Magnesium Sulfate (MAGNESIUM SULFATE 4GM/SWFI 100ML) 100 ML ASDIR PRN IV Magnesium Sulfate (MAGNESIUM SULFATE 2GM/SWFI 50ML) 50 ML ASDIR PRN IV Magnesium Sulfate/Dextrose (MAGNESIUM SULFATE 1GM/D5W 100ML) 100 ML ASDIR PRN IV Nitroglycerin/Dextrose (NITROGLYCERIN 50,000MCG/D5W 250ML) 250 ML ASDIR IV Norepinephrine Bitartrate (NOREPINEPHRINE 8 MG/NS 250 ML) 250 ML TITRATE IV Potassium Chloride (KCL 20MEQ/SWFI 100ML) 100 ML ASDIR PRN IV Sodium Bicarbonate (SODIUM BICARBONATE) 50 MEQ ASDIR PRN IV Ondansetron HCl (ZOFRAN) 4 MG Q6H PRN PRN IV Physical ExamGeneral appearance: lethargic, awakeHead/Eyes: atraumatic, normal conjunctiva/sclera, normal eyelids/periorb., normocephalicNeck: full range of motion, non-tender, no JVDCardiovascular: normal heart sounds, regular rate rhythmRespiratory: decreased breath sounds, clear to auscultationAbdomen: non-tender, normal bowel sounds, soft, no distentionExtremities: edema, moves all, no calf tendernessNeuro/[employer]: alert, 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Skin: dry, intact ResultsFindings/Data:Laboratory Tests 12/27 12/27 12/26 12/26 1011 0239 1242 1134 Blood Gas Puncture Site Art Line Art Line Art Line Art Line O2 Saturation (90 - 100 %) 94.5 95.8 98.6 97.2 ABG pH (7.35 - 7.45) 7.430 7.388 7.356 7.364 ABG pCO2 (35.0 - 45 mmHg) 63.2 *H 70.2 *H 69.2 *H 68.3 *H ABG pO2 (80 - 100.0 mmHg) 73.3 L 85.6 128.4 H 100.9 H ABG PO2/FiO2 Ratio (mm/Hg) 171.20 201.80 ABG HCO3 (22.0 - 26.0 MMOL/L) 42.1 *H 42.4 *H 38.8 *H 39.0 *H ABG Total CO2 44.1 44.5 40.9 41.1 ABG Base Excess (-4.0 - 4.0 MMOL/L) 17.7 H 17.4 H 13.2 H 13.6 H ABG Hematocrit (33.0 - 45.0 %) 25 L 24 L 25 L 23 L ABG Hemoglobin (11.0 - 15.0 G/DL) 8.5 L 8.2 L 8.6 L 7.9 L Martin Test N/A Sodium (134 - 147 MEQ/L) 143 145 145 146 Potassium (3.4 - 5.0 MEQ/L) 3.2 L 3.2 L 3.8 3.7 Chloride (100 - 108 MEQ/L) 94 L [...] Magnesium (1.80 - 2.40 mg/dL) 2.20 12/26 1748 1735 1242 1242Chemistry Sodium (134 - 147 mEq/L) 144 144 [...] (Auto) (14.0 - 32.0 %) 5.2 L [place] % (Auto) (4.8 - 9.0 %) 12.6 H Eos % (Auto) (0.3 - 3.7 %) 1.3 Baso % (Auto) (0.0 - 2.0 %) 0.1 Neut # (Auto) (2.0 - 7.6 x10 3/uL) 6.57 Lymph # (Auto) (1.0 - 3.8 x10 3/uL) 0.44 L [place] # (Auto) (0.1 - 0.8 x10 3/uL) 1.06 H Eos # (Auto) (0.0 - 0.2 x10 3/uL) 0.11 Baso # (Auto) (0.0 - 0.2 x10 3/uL) 0.01 Abs Immat Gran (auto) (0.00 - 0.03 x10 3/uL) 0.20 H Add Manual Diff NO Immature Gran % (0.0 - 2.0 %) 2.4 H Nucleated RBC % (0 - 0 %) 1.5 H Nucleated RBCs # (Man) (0.0 - 0.1 x10 3/uL) 0.13 H Radiology data:Recent Impressions:RADIOLOGY - XR CHEST 1 V 12/27 4132 Report Impression - Status: SIGNED Entered: 12/27/2021 1005 IMPRESSION: 1. Stable to slightly improved bilateral layering pleural effusions. 2. Similar bilateral alveolar pulmonary opacities, probably representing edema and or atelectasis/secretions. 3. Otherwise grossly stable postoperative mediastinum. Impression By: AureliaERR2 - Jonathan Calles M.D. Diagnosis, Assessment PlanConsultants: cardiology, cardiovascular surgeryPlan discussed with: patient, family, nurse Free Text DxA P NotesFree text DxA P notes: 76 years old female with PMH of macular degeneration, obesity, obstructive sleepapnea (CPAP at home), former smoker, hypertension, hyperlipidemia, diabetes, Crohn's disease, chronic atrial fibrillation status post 3 ablations in the past(on Xarelto), pacemaker placement CAD -- multiple vesssels HTNDM HLDCrohn's diseasechronic atrial fibrillation status post 3 ablationsmacular degenerationobesityobstructive sleep apneaacute respiratory failure --post surgery severe mitral valve [...] MVR (31 Magna valve), CABG x 1 (ROBERTS-LAD), ILAA and pericardectomy -- she remain intubated on the vent -- chest tube are in place -on levophed and epinephrine drip -- monitor in CCU 12/20- she was extubated --on bipap now -- NPO --off Levophed/epinephrine, continue vasopressin, inotropes with milrinone, -- chest tube remain in place -- she is stable post surgery 12/21-- she is on high flow O2 -- edema --lasix --chest tube in place --- she is hemodynamic stable -- continue monitor in CCU 12/22- she remain on high O2 CXR show worsening pulmonary venous vascular congestion. --lasix iv tid -- chest tube are [...] drip as nurse -- continue supportive care 12/27On lasix and insulin drips. Back on lantus dose BID, trend glucose.Continue PT/OT. at 1602 at 1251 RPT #:[id number] OF REPORTPRProgress [id number]:50:00G.[id number] e for patient mpyjPVMJYTKMEGUNLX1922-88-73Q66:02:34 HC ACL 2021-12-27 06:53:00 [id number] 1dApFzJpeBpX TNHkaH2fgrf41UVnq7HELqhA7738-28-58R72:53:[address] [facility] ([facility])Rehab Progress NoteREPORT#:[id number] REPORT STATUS: SignedDATE:12/27/21 TIME: 0653 PATIENT: KIAH GILES UNIT #: [id number]#: [id number] [address] [birth year] AGE: 76 SEX: F ATTEND: Jeffry More AUTHOR: Herberth Pantoja * ALL edits or amendments must be made on the electronic/computer document * SubjectiveChief complaint:rehab follow-upFatigueSeen in CVICUShortness of breath with increased activitySignificant generalized weaknessBilateral lower extremity edemaNo GOLD/N/V/D14 systems reviewed and negative except that mentioned above. Objective GeneralVS:Vital Signs: Date Time Temp Pulse Resp B/P B/P Pulse O2 O2 Flow FiO2 Mean Ox Delivery Rate 12/27 0638 97.9 99 23 155/47 76 100 12/27 0600 97.7 74 25 155/47 75 98 12/27 0500 97.5 73 12 141/49 76 85 12/27 0400 97.5 74 34 152/52 83 96 12/27 0321 96 High flow 7 nasal cannula 12/27 0300 97.7 69 24 162/55 88 97 12/27 0036 98.4 73 38 123/51 75 99 12/27 0000 98.2 73 19 115/42 62 100 12/26 2349 75 100 40 12/26 2300 98.4 [...] 72 25 100 12/26 0931 120/56 81 12/26 0931 97.3 75 26 132/51 74 100 [...] 147/52 80 91 PATIENT WEIGHT: Weight (lb): 270Weight (oz): 1.06Weight (kg): 122.500 Medications:Active Meds + DC'd Last 24 HrsPotassium Chloride (POTASSIUM CHLORIDE 20MEQ TAB.ER) 40 MEQ ONCE ONE PO (DC) Sodium Chloride (SODIUM CHLORIDE) 4 ML RTBID NEB Melatonin (Melatonin) 3 MG BEDTIME PO Sodium Chloride (SODIUM CHLORIDE) 10 ML BID IV Acetazolamide (DIAMOX) 250 MG ONCE ONE IV (DC) Sterile Water (WATER FOR INJECTION) 5 ML ASDIR PRN IV (DC) Insulin Glargine (Lantus/Semglee) 10 UNIT DAILY SUBQ Lidocaine HCl (LIDOCAINE 1% 5ML) 5 ML ONCE ONE LOCAL (DC) Sodium Chloride (SODIUM CHLORIDE) 10 ML ASDIR PRN IV Furosemide (LASIX) 240 MG Q24H IV (CKD) IV Miscellaneous Supplies (CONTAINER, BAG) 1 EACHAcetazolamide (DIAMOX) 250 MG ONCE ONE IV (DC) Sterile Water (WATER FOR INJECTION) 5 ML ASDIR PRN IV (DC) Potassium Phos/Sodium Phos (NEUTRA-PHOS) 1 UDPKT TID PO (DC) Pantoprazole (PROTONIX) 40 MG DAILY PO Furosemide (LASIX 40 mg/4 mL INJECTION) 40 MG Q8H IV (DC) Dexmedetomidine/Sodium Chloride (PRECEDEX 1000MCG/NS 250ML) 250 ML ASDIR IV Bisacodyl (DULCOLAX) 10 MG DAILY PRN PRN RECTAL Lactulose (LACTULOSE) 20 GM DAILY PRN PRN PO Magnesium Hydroxide (MILK OF MAGNESIA) 30 ML DAILY PRN PRN PO Aspirin (ASPIRIN) 81 MG DAILY PO Clopidogrel Bisulfate (Plavix) 75 MG DAILY PO Cyanocobalamin (Vitamin B-12 500 mcg tab) 500 MCG DAILY PO Ferrous Sulfate (FERROUS SULFATE) 325 MG DAILY PO Metolazone (metOLazone) 5 MG DAILY PO Polyethylene [...] (CKD) Sodium Chloride (SODIUM CHLORIDE 0.9%) 99 MLAcetylcysteine (MUCOMYST FOR RT) 200 MG RTQ6H NEB Albuterol/Ipratropium (DUONEB) 3 ML RTQ6H NEB Bisacodyl (DULCOLAX) 10 MG ONCE PRN RECTAL Dopamine HCl/Dextrose (DOPamine 400MG/D5W 250ML) 250 ML ASDIR IV Milrinone Lactate/Dextrose (MILRINONE 20MG/D5W 100ML) 100 ML ASDIR IV (CKD) Vasopressin (VASOSTRICT 20 Unit/NS 100ML) 100 ML ASDIR IV (CKD) Acetaminophen (TYLENOL) 650 MG Q4H PRN PRN RECTAL Calcium Chloride (CALCIUM CHLORIDE) 1 GM ASDIR PRN IV Dextrose/Water (DEXTROSE 10% IN WATER) 125 ML ASDIR PRN IV (CKD) Dextrose/Water (DEXTROSE 10% IN WATER) 250 ML ASDIR PRN IV (CKD) Glucagon (GLUCAGON) 1 MG ASDIR PRN IM Magnesium Sulfate (MAGNESIUM SULFATE 4GM/SWFI 100ML) 100 ML ASDIR PRN IV Magnesium Sulfate (MAGNESIUM SULFATE 2GM/SWFI 50ML) 50 ML ASDIR PRN IV Magnesium Sulfate/Dextrose (MAGNESIUM SULFATE 1GM/D5W 100ML) 100 ML ASDIR PRN IV Nitroglycerin/Dextrose (NITROGLYCERIN 50,000MCG/D5W 250ML) 250 ML ASDIR IV Norepinephrine Bitartrate (NOREPINEPHRINE 8 MG/NS 250 ML) 250 ML TITRATE IV Potassium Chloride (KCL 20MEQ/SWFI 100ML) 100 ML ASDIR PRN IV Sodium Bicarbonate (SODIUM BICARBONATE) 50 MEQ ASDIR PRN IV Ondansetron HCl (ZOFRAN) 4 MG Q6H PRN PRN IV Functional ProgressFunctional progress: Weightbearing: No Restriction Ambulation Distance: 35FT X2 Progression: Forward Assistance Level: Moderate Assistance Gait Deviations: Shuffling SHORT STEPS [facility] Mobility: No Document Pain/Education: No Advanced Progression: No Effects of Treatment: Tolerance increased Function Improved Gait quality improved [place] of care decreased Post [place] Precautions: In Bed, rails Up Call Light in Reach Nursing Notified O2 on Pulse OX in Place Family/Sitter at Bedside Review Plan of Care: Yes PT charges: Gait Training [id number] Gait Cmt: Pt IN RECLINER UPON ARRIVAL. Pt IS DEPENDENT 2 PERSON ASSIST WITH SIT TO STAND [...] IN BED. FAMILY IN THE ROOM. NURSE AWARE. Physical ExamGeneral appearance: alert, awakePsych: alert, oriented x 3HEENT: anicteric, mucosal membranes moistNeck: supple, no JVDCardiovascular: regular rate rhythm, no murmurRespiratory: diminished breath sounds (bases ), on oxygen (Hi flow O2 )Abdomen: bowel sounds present, non-distended, soft, non-tenderSkin: dry, intact, no rash, incisions D/IMusculoskeletal - general: Musculoskeletal - general: swelling (BLE +3), moving all ext AGNeuro/CAPTAIN [employer]: alert, 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, normal speech, no motor deficits, no sensory deficits ResultsFindings/Data:Laboratory Tests: 12/27 12/27 12/27 12/27 0542 0239 0238 0152Blood Gas Puncture Site Art Line O2 Saturation [...] Device BiPAP FiO2 (%) 50 PEEP (cmH2O) 5Chemistry Sodium (134 - 147 mEq/L) 148 H [...] mg/dL) 9.9 Magnesium (1.80 - 2.40 mg/dL) 2.20Hematology WBC (4.5 - 11.0 x10 3/uL) 8.4 [...] (Auto) (14.0 - 32.0 %) 5.2 L Colquitt % (Auto) (4.8 - 9.0 %) 12.6 H Eos % (Auto) (0.3 - 3.7 %) 1.3 Baso % (Auto) (0.0 - 2.0 %) 0.1 Neut # (Auto) (2.0 - 7.6 x10 3/uL) 6.57 Lymph # (Auto) (1.0 - 3.8 x10 3/uL) 0.44 L Colquitt # (Auto) (0.1 - 0.8 x10 3/uL) 1.06 H Eos # (Auto) (0.0 - 0.2 x10 3/uL) 0.11 Baso # (Auto) (0.0 - 0.2 x10 3/uL) 0.01 Abs Immat Gran (auto) (0.00 - 0.03 x10 3/uL) 0.20 H Add Manual Diff NO Immature Gran % (0.0 - 2.0 %) 2.4 H Nucleated RBC % (0 - 0 %) 1.5 H Nucleated RBCs # (Man) (0.0 - 0.1 x10 3/uL) 0.13 H 12/27 12/26 12/26 12/26 12/26 0021 [...] 2.30 12/26 12/26 12/26 12/26 1242 1242 1134 0922 Blood Gas Puncture Site Art Line Art [...] Calcium (1.12 - 1.32 MMOL/L) 1.37 H 1.38 H Lactic Acid (0.9 [...] - 2.40 mg/dL) 2.43 H Diagnosis, Assessment PlanFree Text A P:Critical illness myopathyStatus post CABG x1 Status post MVRGeneralized weaknessDeconditioningImpaired ADLs, mobility, gait, balance and endurance postoperative anemiaMorbid obesityCADHLD Crohn's diseaseChronic A. fibHypoxic respiratory failure Plan:Continue PT/OTOut of bed to chairWork on strength, bed mobility, transfers, gaitIncrease enduranceFall precautionsMonitor p.o. intake and nutritionStrict decubitus precautionsMonitor anemiaAdvance therapies as toleratedPt currently on TPNOn BIPAP VS Hiflow Diuresising increased - monitor strict I OsMonitor patient in CVICU Will eventually need IRF when medically ready. TT: 34 mins, reviewing chart, notes, labs, meds, therapy notes, discussed medical mgt, and rehab poc, goals. Answered all questions Rehab attestation:. at [address] [facility] #:[id number] OF REPORTPRProgress [id number]:53:00G.[id number] e for patient soncGDLSAKKJPECZME2052-32-58C76:21:09 HC ACL 2021-12-26 22:49:00 [id number] MQymsdbBjS3b 8rk8UwkBwlXYGMHFFctYeAhh2570-71-37Q02:49:00 [facility] CenterNeph[facility] Progress NoteREPORT#:[id number] REPORT STATUS: SignedDATE:12/26/21 TIME: 2248 PATIENT: KIAH GILES UNIT #: [id number]#: [id number] [address] [birth year] AGE: 76 SEX: F ATTEND: Jeffry More AUTHOR: Suki Fuchs MD * ALL edits or amendments must be made on the electronic/computer document * SubjectiveChief complaint:chest painHPI:This is a 76-year-old female who has past medical history of hypertension, diabetes, coronary artery disease, atrial fibrillation who presented with worsening shortness of breath and on further work-up was 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 She was withnormal kidney function prior to surgery and after her surgery she began to develop oliguria. Her procedure was done without any complications but after her surgery she did require pressor support for hypotension and she was intubated for respiratory acidosis and hypoxia and she was treated with vancomycin for infection treatment. When she was seen this morning she continued to have hypotension and her heart rate was paced by her permanent pacemaker and her urine output was 20 to 30/h. Her family at bedside denied anyhistory of kidney disease, kidney stone, chronic NSAID use or any urinary complaints. They also endorse that her blood pressure and diabetes were mostly controlled. 12/26Appearing comfortable, not in any distress,on oxygen support today. Objective GeneralVS/I O:Vital Signs: Date Time Temp Pulse Resp B/P B/P Pulse O2 O2 Flow FiO2 Mean Ox Delivery Rate 12/26 2222 69 98 40 12/27 1999 Nasal 7 cannula 12/27 1999 36.7 75 97 Nasal 7 cannula 12/26 1956 95 High flow 7 nasal cannula 12/26 1908 36.7 74 43 159/57 88 96 12/26 [...] 1100 36.5 75 16 125/51 72 100 12/26 1000 72 25 100 / 0931 120/56 81 12/26 0931 36.3 75 26 132/51 74 100 12/26 0900 128/63 90 12/26 0900 36.3 74 31 136/44 70 100 12/26 0831 117/60 79 12/26 0831 36.3 70 31 151/52 82 99 12/26 0801 146/65 93 12/26 0801 36.4 73 26 160/56 88 96 12/26 0800 BiPAP 12/26 0800 36.4 75 30 149/55 86 96 / 0747 77 100 / 0747 100 BiPAP 40 / 0710 36.4 72 26 168/64 99 100 12/26 0700 36.5 72 27 147/52 80 91 / 0630 96/53 69 / 0630 36.5 75 16 102/42 59 100 / 0601 96/55 73 / 0601 36.5 73 15 102/41 57 100 12/26 0600 36.5 73 13 106/41 58 100 12/26 0545 36.5 72 19 130/47 70 100 / 0538 117/75 91 / 0538 73 21 143/51 78 100 /14 0500 159/67 97 /14 0500 36.4 71 29 160/62 96 100 / 0430 151/69 99 /14 0430 36.4 70 20 163/60 90 100 / 0400 163/76 109 /14 0400 36.6 72 47 173/64 97 100 / 0350 69 100 50 /14 0330 163/71 102 /14 0330 36.7 70 22 178/66 100 97 12/26 0300 170/72 104 12/26 0300 36.8 73 24 184/70 108 96 12/26 0231 177/81 117 12/26 0231 36.9 71 30 173/67 102 97 12/26 0200 104/51 74 /14 0200 37.0 69 16 100/43 57 100 [...] scale Measurement Method PATIENT WEIGHT: Weight (lb): 270Weight (oz): 8.12Weight (kg): 122.700 Physical ExamGeneral appearance: alert, awake, orientedHead/eyes: atraumatic, normocephalicENT: ET tubeNeck: no JVD, no lymphadenopathyCardiovascular: normal heart sounds, regular rate and rhythmRespiratory: aerating well, clear to auscultationAbdomen: soft, no pulsatile massGenitourinary: urinary catheterExtremities: pitting edema, no gangrene, no swelling Treatment Prophylaxis Treatment ProphylaxisDrain(s)/tube(s): Drain(s)/tube(s): chest (x3) Diagnosis, Assessment PlanFree Text A P:This is a 76-year-old female known to have hypertension, diabetes, atrial fibrillation, s/p permanent pacemaker and history of ablation presenting with shortness of breath and 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 Nephrology is following for: 1. Acute kidney injury: Most likely it is prerenal (cardiorenal), she has been hypotensive postoperatively with requirement for pressor support and inotropic support. Plan is to increase inotropic support or pressor support to bring meanarterial pressure above 65 and give albumin with Lasix to see if it helps him diurese. If he does not respond to higher dose Lasix with albumin then I will consider starting him on CRRT to prevent hyper volemia. 2. Hypervolemia: Plan is to give Lasix and if he does not respond to start him on CRRT for extra fluid removal. 3. His electrolytes were all reviewed to be in normal range plan was to monitorand replace as needed. 4. He was receiving vancomycin so plan was to monitor vancomycin trough levels to prevent ATN. . Acute kidney injury: Most likely it is prerenal (cardiorenal), she has been hypotensive postoperatively with requirement for pressor support and inotropic support. She responded to Lasix after her blood pressure improved with higher dose vasopressin and she was given albumin. Plan was to continue twice a day Lasix and albumin for hypervolemia. 2. Hypervolemia: Plan is to give Lasix with albumin twice daily and increase dose if needed. 3. His electrolytes were all reviewed to be in normal range plan was to monitorand replace as needed. 4. He was receiving vancomycin so plan was to monitor vancomycin trough levels to prevent ATN. 12/22 1. Acute kidney injury: Most likely it is prerenal (cardiorenal), she has been hypotensive postoperatively with requirement for pressor support and inotropic support. She responded to Lasix after her blood pressure improved with higher dose vasopressin and she was given albumin. Plan was to continue Lasix and albumin for hypervolemia.Plan to increase dose to reach goal of 1 L negative Q12H. 2. Hypervolemia: Plan is to give Lasix with albumin and increase dose if needed. 3. His electrolytes were all reviewed to be in normal range plan was to monitorand replace as needed. 4. He was receiving vancomycin so plan was to monitor vancomycin trough levels to prevent ATN. 12/23 1. Acute kidney injury: Most likely it is prerenal (cardiorenal), she has been hypotensive postoperatively with requirement for pressor support and inotropic support. She responded to Lasix after her blood pressure improved with higher dose vasopressin and she was given albumin. Plan was to continue Lasix and albumin for hypervolemia.Plan to increase dose to reach goal of 1 L negative Q12H. 2. Hypervolemia: Plan is to give Lasix with albumin and increase dose if needed. 3. Her electrolytes were all reviewed to be in normal range plan was to monitor and replace as needed. 4. She was receiving vancomycin so plan was to monitor vancomycin trough levelsto prevent ATN. 5/ Metabolic alkalosis secondary to diuretics : Plan to give acetazoleamide if worsening. 12/24 1. Acute kidney injury: Resolved, she is responding to lasix. 2. Hypervolemia: Plan to continue lasix as tolerated. 3. Her electrolytes were all reviewed to be in normal range plan was to monitor and replace as needed. 4. She was receiving vancomycin so plan was to monitor vancomycin trough levelsto prevent ATN. 5/ Metabolic alkalosis secondary to diuretics : Plan to give acetazoleamide if worsening. 12/25 1. Acute kidney injury: Resolved, she is responding to lasix. 2. Hypervolemia: Plan to continue lasix as tolerated.Today it was held for metabolic alkalosis. 3. Her electrolytes were all reviewed to be in normal range plan was to monitor and replace as needed. 4. She was receiving vancomycin so plan was to monitor vancomycin trough levelsto prevent ATN. 5/ Metabolic alkalosis secondary to diuretics : Plan to give acetazoleamide if worsening. 12/26 1. Acute kidney injury: Resolved, she is responding to lasix. 2. Hypervolemia: Plan to continue lasix as tolerated.Today she was on low dose drip. 3. Her electrolytes were all reviewed to be in normal range plan was to monitor and replace as needed. 4. She was receiving vancomycin so plan was to monitor vancomycin trough levelsto prevent ATN. 5/ Metabolic alkalosis secondary to diuretics : Plan to give acetazoleamide if worsening. Consultants: cardiology, cardiovascular surgery at [address]1 RPT #:[id number] OF REPORTPRProgress [id number]:49:00G.[id number] e for patient dvpeCWWYWAFMFEKIAY9229-34-96R22:52:17 HC ACL 2021-12-26 16:37:00 [id number] OakO4fBGL3EP L5dk8nwnXhymwiBjPfbJ1S3g7758-81-57B07:37:00 [facility])Cardiothoracic Surgery ProgREPORT#:[id number] REPORT STATUS: SignedDATE:12/26/21 TIME: 1637 PATIENT: KIAH GILES UNIT #: [id number]#: [id number] [address] [birth year] AGE: 76 SEX: F ATTEND: Jeffry More AUTHOR: Tj Bonner MD * ALL edits or amendments must be made on the electronic/computer document * GeneralPost-op: day 7Status post:1. Mitral valve replacement (31 Magna valve). 2. Coronary artery bypass graft surgery x1 (ROBERTS to LAD). 3. Isolation of left atrial appendage. 4. Pericardiectomy. SubjectiveChief complaint:Shortness of breath Review of SystemsConstitutional:Denies: fever, malaise. Allergy/Immun:Denies: allergic reaction. ENT:Denies: sore throat. Respiratory:Denies: SOB. GI:Denies: abdominal pain. Heme:Denies: bleeding. Neuro:Denies: focal weakness, headache. All systems rev neg: except as marked Objective GeneralVS/I OLast Documented: Result Date Time Pulse Ox 99 12/26 1444 B/P 157/58 12/26 1444 B/P Mean 90 12/26 1444 Temp 36.5 12/26 1444 Pulse 75 12/26 144 Resp 33 12/26 144 O2 Delivery High flow nasal cannula 12/27 1431 O2 Flow Rate 7 12/26 143 FiO2 40 12/26 0747 24 hour I [...] scale Measurement Method PATIENT WEIGHT: Weight (lb): 270Weight (oz): 8.12Weight (kg): 122.700 Dietitian Nutrition assessmentThe data set between the solid lines has been imported from the dietitian's assessment. BMI Calculated: 46.4Nutrition related diagnosis: Morbid obesityNutrition diagnosis details: BMI 40 or moreNutrition problem: Increased nutrient needsNutrition etiology: Chronic diseaseNutrition signs and symptoms: S/P CABGNutrition prescription: 1. CONTINUE REGULAR DIET TO LIBERALIZE FOOD CHOICES ANDHELP INCREASE PO INTAKE. 2. PROVIDE GLUCERNA 4 PER DAY. 3. MONITOR PO, WT, LABS,BM.Dietitian name: Serenity Garner, DIETAssessment completed: 12/25/21 Physical ExamGeneral appearance: lethargicWound/incision: Location:sternal Site condition: dressing clean dry, dressing intactHEENT: anictericNeck: supple/no meningismusCardiovascular: normal heart sounds, regular rate rhythmRespiratory: aerating well, symmetric expansion, no distressAbdomen: soft, non-tenderExtremities: moves allNeuro/CAPTAIN FI[employer] PRE[employer]ION [employer]: alert, 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, normal speechSkin: dry, intact, normal temperaturePsychiatry: normal affect, normal mood Current MedicationsMedications:Active Meds + DC'd Last 24 HrsSodium Chloride (SODIUM CHLORIDE) 4 ML RTBID NEB Sodium Chloride (SODIUM CHLORIDE) 10 ML BID IV Acetazolamide (DIAMOX) 250 MG ONCE ONE IV Sterile Water (WATER FOR INJECTION) 5 ML ASDIR PRN IV Insulin Glargine (Lantus/Semglee) 10 UNIT DAILY SUBQ Lidocaine HCl (LIDOCAINE 1% 5ML) 5 ML ONCE ONE LOCAL (DC) Sodium Chloride (SODIUM CHLORIDE) 10 ML ASDIR PRN IV Furosemide (LASIX) 240 MG Q24H IV (CKD) IV Miscellaneous Supplies (CONTAINER, BAG) 1 EACHAcetazolamide (DIAMOX) 250 MG ONCE ONE IV (DC) Sterile Water (WATER FOR INJECTION) 5 ML ASDIR PRN IV (DC) Potassium Phos/Sodium Phos (NEUTRA-PHOS) 1 UDPKT TID PO (DC) Sterile Water (WATER FOR INJECTION) 5 ML ASDIR PRN IV (DC) Pantoprazole (PROTONIX) 40 MG DAILY PO Furosemide (LASIX 40 mg/4 mL INJECTION) 40 MG Q8H IV (DC) Dexmedetomidine/Sodium Chloride (PRECEDEX 1000MCG/NS 250ML) 250 ML ASDIR IV Amino Acids/Electrolytes/Dextrose (TPN ADULT- CENTRAL 2000ML) 1,080 ML 2200 IV (DC) Bisacodyl (DULCOLAX) 10 MG DAILY PRN PRN RECTAL Lactulose (LACTULOSE) 20 GM DAILY PRN PRN PO Magnesium Hydroxide (MILK OF MAGNESIA) 30 ML DAILY PRN PRN PO Aspirin (ASPIRIN) 81 MG DAILY PO Clopidogrel Bisulfate (Plavix) 75 MG DAILY PO Cyanocobalamin (Vitamin B-12 500 mcg tab) 500 MCG DAILY PO Ferrous Sulfate (FERROUS SULFATE) 325 MG DAILY PO Metolazone (metOLazone) 5 MG DAILY PO Polyethylene [...] (CKD) Sodium Chloride (SODIUM CHLORIDE 0.9%) 99 MLAcetylcysteine (MUCOMYST FOR RT) 200 MG RTQ6H NEB Albuterol/Ipratropium (DUONEB) 3 ML RTQ6H NEB Bisacodyl (DULCOLAX) 10 MG ONCE PRN RECTAL Dopamine HCl/Dextrose (DOPamine 400MG/D5W 250ML) 250 ML ASDIR IV Milrinone Lactate/Dextrose (MILRINONE 20MG/D5W 100ML) 100 ML ASDIR IV (CKD) Vasopressin (VASOSTRICT 20 Unit/NS 100ML) 100 ML ASDIR IV (CKD) Acetaminophen (TYLENOL) 650 MG Q4H PRN PRN RECTAL Calcium Chloride (CALCIUM CHLORIDE) 1 GM ASDIR PRN IV Dextrose/Water (DEXTROSE 10% IN WATER) 125 ML ASDIR PRN IV (CKD) Dextrose/Water (DEXTROSE 10% IN WATER) 250 ML ASDIR PRN IV (CKD) Glucagon (GLUCAGON) 1 MG ASDIR PRN IM Magnesium Sulfate (MAGNESIUM SULFATE 4GM/SWFI 100ML) 100 ML ASDIR PRN IV Magnesium Sulfate (MAGNESIUM SULFATE 2GM/SWFI 50ML) 50 ML ASDIR PRN IV Magnesium Sulfate/Dextrose (MAGNESIUM SULFATE 1GM/D5W 100ML) 100 ML ASDIR PRN IV Nitroglycerin/Dextrose (NITROGLYCERIN 50,000MCG/D5W 250ML) 250 ML ASDIR IV Norepinephrine Bitartrate (NOREPINEPHRINE 8 MG/NS 250 ML) 250 ML TITRATE IV Potassium Chloride (KCL 20MEQ/SWFI 100ML) 100 ML ASDIR PRN IV Sodium Bicarbonate (SODIUM BICARBONATE) 50 MEQ ASDIR PRN IV Ondansetron HCl (ZOFRAN) 4 MG Q6H PRN PRN IV ResultsFindings/Data:Laboratory Tests 12/26 12/26 12/26 12/25 0763 3344 4030 2015 Blood Gas Puncture Site Art Line Art Line L Radial Art Line O2 Saturation (90 [...] %) 25 L 23 L 25 L 24 L ABG Hemoglobin (11.0 - 15.0 G/DL) 8.6 L 7.9 L 8.6 L 8.2 L Martin Test N/A Sodium (134 - 147 MEQ/L) 145 146 144 142 Potassium (3.4 - 5.0 MEQ/L) 3.8 3.7 3.7 3.5 Chloride (100 - 108 MEQ/L) 99 L 98 L 99 L 98 L Ionized Calcium (1.12 - 1.32 MMOL/L) 1.37 H 1.38 H 1.31 1.32 Lactic Acid (0.9 - 1.7 mmol/l) 0.7 L 0.6 L 0.6 L 0.7 L Temperature (F) 98.1 97.9 O2 Delivery Device HFNC BiPAP BiPAP HFNC Vent Rate (/MIN) 26 FiO2 (%) 50 50 Laboratory Tests 12/26 12/26 12/26 12/26 12/26 1242 1242 1134 0928 0543Chemistry Sodium (134 - 147 mEq/L) 144 Potassium [...] 2.43 H 12/26 12/26 12/25 12/25 12/25 0335 8810 2322 2015 2014 Chemistry Sodium (134 - 147 [...] (Auto) (14.0 - 32.0 %) 4.2 L Colquitt % (Auto) (4.8 - 9.0 %) 12.6 H Eos % (Auto) (0.3 - 3.7 %) 1.3 Baso % (Auto) (0.0 - 2.0 %) 0.1 Neut # (Auto) (2.0 - 7.6 x10 3/uL) 5.34 Lymph # (Auto) (1.0 - 3.8 x10 3/uL) 0.29 L [place]itt # (Auto) (0.1 - 0.8 x10 3/uL) 0.87 H Eos # (Auto) (0.0 - 0.2 x10 3/uL) 0.09 Baso # (Auto) (0.0 - 0.2 x10 3/uL) 0.01 Abs Immat Gran (auto) (0.00 - 0.03 x10 3/uL) 0.29 H Add Manual Diff NO Immature Gran % (0.0 - 2.0 %) 4.2 H Nucleated RBC % (0 - 0 %) 2.6 H Nucleated RBCs # (Man) (0.0 - 0.1 x10 3/uL) 0.18 H Radiology data:Recent Impressions:RADIOLOGY - XR CHEST 1 V 12/27 611 [...] bilateral pleural effusions. No pneumothorax is visible. Impression By: [email or web address] - Bill Kern M.D. Results: rythm personally rev'd, x-ray personally reviewed, current med profile rev'd Treatment Prophylaxis Treatment ProphylaxisOxygen: CPAP/BIPAPLines: arterial, CVC, peripheralDrain(s)/tube(s): Drain(s)/tube(s): chest (x3) Quality: Trauma Gen Surg Current MedicationsCurrent medication review:Home Medications:RIVAROXABAN (XARELTO) 20 MG PO DAILY amLODIPine (NORVASC) [...] DAILY INSULIN DETEMIR (LEVEMIR FlexTouch (15mL)) 50 UNITS SUBQ BID INSULIN LISPRO (HumaLOG CARTRIDGE (15mL)) 0 UNITS SUBQ TID LIRAGLUTIDE (VICTOZA (6mL)) 1.8 MG SUBQ DAILY metFORMIN (GLUCOPHAGE) 1,000 MG PO BID ADALIMUMAB + SUPPLIES (HUMIRA PREFILLED PEN) 40 MG SUBQ Q14D azaTHIOprine (IMURAN) 50 MG PO DAILY I attest that the foregoing medication list in the medical record is true, accurate, and complete to the best of my knowledge. Diagnosis, Assessment PlanHospital course to date:This very pleasant 76-year-old female, from [facility], with past medical history of macular degeneration, obesity, obstructive sleep apnea (CPAP at home), former smoker, hypertension, hyperlipidemia, diabetes, Crohn's disease, chronic atrial fibrillation status post 3 ablations in the past (on Xarelto), pacemaker placement who had a recent admission to the hospital with heart failure symptoms. She has been admitted to the hospital today for elective heartcath. Coronary angiogram showed severe multivessel coronary artery disease suitable for percutaneous intervention. CV surgery called for evaluation. 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 She will benefit from off-pump ROBERTS to LAD and pericardiotomy. Dr. Romero explainedto the patient the surgery, risks involved, STS score, benefits, complications and alternatives. She acknowledged understanding and is willing to proceedPreop work-up has been initiatedWe will tentatively schedule patient for surgery tomorrow. 12/18 Preop assessment ongoingNo carotid stenosis on ultrasoundCT chest reviewed with Dr. Singhurgery rescheduled for tomorrowNPO after midnight Plan discussed with the patient 12/20 POD 1Patient hemodynamically stable, cardiac index 3.1Required Bipap after extubation yesterday and overnightTrend ABGs- wean bipap as toleratedDecrease milrinone drip to 0.125, and continue vasopressin at 0.02 Urine output marginal- dopamine drip started at 3Creatinine increased to 1.4, monitor strict I and O'sEncourage po intake, incentive spirometer useTry to get patient out of bed to chair today PT/OTMonitor patient closely in the CVICU 12/22/21POD3d/c chest tubesneed to diuresis agressively 40 k48lmfoy needs legs elevatedcxr appears wetd/c swanTPN due to bipapteleflex today keep TPN for now 12/23 POD 4Labs and cxr reviewedIncrease diuresis- monitor strict I OsContinue TPNOn teleflex 60L 70%- wean as toleratedMonitor patient in CVICU 12/25/21 POD 6back on bipapif reintubate consider trach still on TPNif trach consider PEG 12/26/21POD 7contiune bipap support alt with teleflexif reintubate will need trach and pegcontinue hyperal Consultants: cardiology, cardiovascular surgery at 1636 RPT #:[id number] OF REPORTPRProgress vvyq3048-07-83H99:37:00G.[id number] e for patient ypwcIGTFXOVWAWEAZW0205-39-95X74:39:48 HC ACL 2021-12-26 14:28:00 [id number] cwxeQ8qFyEmC PmLIdYm0IhhG0VfIw/8E1JlY5934-37-75J20:28:[address] [facility] ([facility])Critical Care Progress NoteREPORT#:[id number] REPORT STATUS: SignedDATE:12/26/21 TIME: 1428 PATIENT: KIAH GILES UNIT #: [id number]#: [id number] [address] [birth year] AGE: 76 SEX: F ATTEND: Jeffry More MDADM AUTHOR: Ricky Goodwin MD * ALL edits or amendments must be made on the electronic/computer document * SubjectiveChief complaint:CABG/MVRHPI:76-year-old morbidly obese female with history of HTN, HL, IDDM, smoking, RONA onCPAP and home O2 as needed, macular degeneration, Crohn's disease on immunosuppressant medications, and chronic Afib s/p ablation and PPM (on Xarelto), who was admitted recently with heart failure symptoms. Patient underwent elective cardiac cath that showed severe multivessel coronary artery disease notsuitable for percutaneous intervention. 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 She went for surgical revascularization today and preop JORDEN revealed severe mitral regurgitation. After discussing new findings with family, patient underwent MVR (31 Magna valve), CABG x 1 (ROBERTS-LAD), ILAA and pericardectomy on 12/19/2021. Has EF of 45%. Crystalloid 1 L, urine output 700, Cell Saver 700. She is a-paced at baseline. Surgery went well and patient was transferred to CVICU postop in a stable surgical condition. She is currentlyintubated on 2 mics of epinephrine, 2 mics of Levophed and insulin drip. CI 3.0,SvO2 in 60%s, CVP 15 and PAP in 60s. Comments:Interval history- Patient is on the lasix drip for diuresis On Diamox too for alkalosis Objective GeneralVS/I OLast Documented: Result Date Time Pulse Ox 100 12/26 1105 Pulse 75 12/26 1105 FiO2 40 12/26 746 O2 Delivery BiPAP 12/26 0647 B/P 168/64 12/26 709 B/P Mean 99 12/26 709 Temp 36.4 [...] scale Measurement Method PATIENT WEIGHT: Weight (lb): 270Weight (oz): 8.12Weight (kg): 122.700 Medications:Active Meds + DC'd Last 24 HrsSodium Chloride (SODIUM CHLORIDE) 10 ML BID IV Acetazolamide (DIAMOX) 250 MG ONCE ONE IV Sterile Water (WATER FOR INJECTION) 5 ML ASDIR PRN IV Insulin Glargine (Lantus/Semglee) 10 UNIT DAILY SUBQ Lidocaine HCl (LIDOCAINE 1% 5ML) 5 ML ONCE ONE LOCAL (DC) Sodium Chloride (SODIUM CHLORIDE) 10 ML ASDIR PRN IV Furosemide (LASIX) 240 MG Q24H IV (CKD) IV Miscellaneous Supplies (CONTAINER, BAG) 1 EACHAcetazolamide (DIAMOX) 250 MG ONCE ONE IV (DC) Sterile Water (WATER FOR INJECTION) 5 ML ASDIR PRN IV Potassium Phos/Sodium Phos (NEUTRA-PHOS) 1 UDPKT TID PO (DC) Acetazolamide (DIAMOX) 250 MG ONCE ONE IV (DC) Sterile Water (WATER FOR INJECTION) 5 ML ASDIR PRN IV (DC) Pantoprazole (PROTONIX) 40 MG DAILY PO Sterile Water (WATER FOR INJECTION) 5 ML ASDIR PRN IV (DC) Furosemide (LASIX 40 mg/4 mL INJECTION) 40 MG Q8H IV (DC) Dexmedetomidine/Sodium Chloride (PRECEDEX 1000MCG/NS 250ML) 250 ML ASDIR IV Amino Acids/Electrolytes/Dextrose (TPN ADULT- CENTRAL 2000ML) 1,080 ML 2200 IV (DC) Bisacodyl (DULCOLAX) 10 MG DAILY PRN PRN RECTAL Lactulose (LACTULOSE) 20 GM DAILY PRN PRN PO Magnesium Hydroxide (MILK OF MAGNESIA) 30 ML DAILY PRN PRN PO Aspirin (ASPIRIN) 81 MG DAILY PO Clopidogrel Bisulfate (Plavix) 75 MG DAILY PO Cyanocobalamin (Vitamin B-12 500 mcg tab) 500 MCG DAILY PO Ferrous Sulfate (FERROUS SULFATE) 325 MG DAILY PO Metolazone (metOLazone) 5 MG DAILY PO Polyethylene [...] (CKD) Sodium Chloride (SODIUM CHLORIDE 0.9%) 99 MLAcetylcysteine (MUCOMYST FOR RT) 200 MG RTQ6H NEB Albuterol/Ipratropium (DUONEB) 3 ML RTQ6H NEB Bisacodyl (DULCOLAX) 10 MG ONCE PRN RECTAL Dopamine HCl/Dextrose (DOPamine 400MG/D5W 250ML) 250 ML ASDIR IV Milrinone Lactate/Dextrose (MILRINONE 20MG/D5W 100ML) 100 ML ASDIR IV (CKD) Vasopressin (VASOSTRICT 20 Unit/NS 100ML) 100 ML ASDIR IV (CKD) Acetaminophen (TYLENOL) 650 MG Q4H PRN PRN RECTAL Calcium Chloride (CALCIUM CHLORIDE) 1 GM ASDIR PRN IV Dextrose/Water (DEXTROSE 10% IN WATER) 125 ML ASDIR PRN IV (CKD) Dextrose/Water (DEXTROSE 10% IN WATER) 250 ML ASDIR PRN IV (CKD) Glucagon (GLUCAGON) 1 MG ASDIR PRN IM Magnesium Sulfate (MAGNESIUM SULFATE 4GM/SWFI 100ML) 100 ML ASDIR PRN IV Magnesium Sulfate (MAGNESIUM SULFATE 2GM/SWFI 50ML) 50 ML ASDIR PRN IV Magnesium Sulfate/Dextrose (MAGNESIUM SULFATE 1GM/D5W 100ML) 100 ML ASDIR PRN IV Nitroglycerin/Dextrose (NITROGLYCERIN 50,000MCG/D5W 250ML) 250 ML ASDIR IV Norepinephrine Bitartrate (NOREPINEPHRINE 8 MG/NS 250 ML) 250 ML TITRATE IV Potassium Chloride (KCL 20MEQ/SWFI 100ML) 100 ML ASDIR PRN IV Sodium Bicarbonate (SODIUM BICARBONATE) 50 MEQ ASDIR PRN IV Ondansetron HCl (ZOFRAN) 4 MG Q6H PRN PRN IV ResultsFindings/data:Laboratory Tests 12/26 12/26 12/26 12/25 8549 5940 0631 2015 Blood Gas Puncture Site Art Line Art Line L Radial Art Line O2 Saturation (90 [...] %) 25 L 23 L 25 L 24 L ABG Hemoglobin (11.0 - 15.0 G/DL) 8.6 L 7.9 L 8.6 L 8.2 L Martin Test N/A Sodium (134 - 147 MEQ/L) 145 146 144 142 Potassium (3.4 - 5.0 MEQ/L) 3.8 3.7 3.7 3.5 Chloride (100 - 108 MEQ/L) 99 L 98 L 99 L 98 L Ionized Calcium (1.12 - 1.32 MMOL/L) 1.37 H 1.38 H 1.31 1.32 Lactic Acid (0.9 - [...] 12/26 12/26 12/26 1242 1242 1134 0928 0543Chemistry Sodium (134 - 147 mEq/L) 144 Potassium [...] 10.1 Ionized Calcium Gigi (1.09 - 1.30 1.22MMOL/L) Magnesium (1.80 - 2.40 mg/dL) 2.43 H 12/26 12/26 12/25 12/25 12/25 0332 0328 3327 2015 2015Chemistry Sodium (134 - 147 mEq/L) 145 145 [...] (Auto) (14.0 - 32.0 %) 4.2 L Col[place]itt % (Auto) (4.8 - 9.0 %) 12.6 H Eos % (Auto) (0.3 - 3.7 %) 1.3 Baso % (Auto) (0.0 - 2.0 %) 0.1 Neut # (Auto) (2.0 - 7.6 x10 3/uL) 5.34 Lymph # (Auto) (1.0 - 3.8 x10 3/uL) 0.29 L [place] # (Auto) (0.1 - 0.8 x10 3/uL) 0.87 H Eos # (Auto) (0.0 - 0.2 x10 3/uL) 0.09 Baso # (Auto) (0.0 - 0.2 x10 3/uL) 0.01 Abs Immat Gran (auto) (0.00 - 0.03 x10 3/uL) 0.29 H Add Manual Diff NO Immature Gran % (0.0 - 2.0 %) 4.2 H Nucleated RBC % (0 - 0 %) 2.6 H Nucleated RBCs # (Man) (0.0 - 0.1 x10 3/uL) 0.18 H Laboratory Tests 12/26/21 1242:[Embedded Image Not Available] 12/26/21 0332:[Embedded Image Not Available] 12/25/21 2015:[Embedded Image Not Available] 12/25/21 1500:[Embedded Image Not Available] Free Text Obj NotesFree Text Obj Notes:General appearance: elderly female in no acute distress, interactiveHEENT: atraumatic, normocephalic, moist mucosal membranesNeck: full range of motion, supple/no meningismusCardiovascular: S1S2 regular rate and rhythm, a-pacedRespiratory: symmetric expansion, no acute respiratory distressAbdomen: soft, obese, non-tender, no distention, no guardingGenitourinary: [place] with clear urineExtremities: pedal pulses palpable, moves all, no clubbing, no cyanosis, LE edemaMusculoskeletal: normal inspection, no muscle spasmNeuro/[employer]: Alert and oriented, intermittently delirious, CNII-XII grossly intact, no motor deficitsSkin: dry, intact and clean surgery dressing Treatment Prophylaxis Treatment ProphylaxisDrain(s)/tube(s): Drain(s)/tube(s): chest (x3) Diagnosis, Assessment PlanProblem list/A P: 1. S/P MVR (mitral valve replacement) 2. S/P CABG x 1 3. Postoperative pulmonary dysfunction after cardiac surgery 4. Severe mitral regurgitation 5. CAD (coronary artery disease) 6. CKD (chronic kidney disease) 7. Immunosuppressed status 8. RONA on CPAP 9. Chronic a-fib 10. Crohn disease Free text A P:76-year-old morbidly obese female with history of HTN, HL, IDDM, smoking, RONA onCPAP and home O2 as needed, macular degeneration, Crohn's disease on immunosuppressant medications, and chronic Afib s/p ablation and PPM (on Xarelto), who was admitted recently with heart failure symptoms. Patient underwent elective cardiac cath that showed severe multivessel coronary artery disease notsuitable for percutaneous intervention. 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 She went for surgical revascularization today and preop JORDEN revealed severe mitral regurgitation. After discussing new findings with family, patient underwent MVR (31 Magna valve), CABG x 1 (ROBERTS-LAD), ILAA and pericardectomy on 12/19/2021. Has EF of 45%. Crystalloid 1 L, urine output 700, Cell Saver 700. She is a-paced at baseline. Surgery went well and patient was transferred to CVICU postop in a stable surgical condition. She is currentlyintubated on 2 mics of epinephrine, 2 mics of Levophed and insulin drip. CI 3.0,SvO2 in 60%s, CVP 15 and PAP in 60s. Remains neuro intact, multimodal pain control, avoid opiatesPatient needs BiPAP for underlying RONA. Does use home CPAP. BiPAP 18/10. FiO2is down to 50%. During the day she remained on high flow nasal cannula 12 L.Bowel movement yesterday.Chest x-ray shows still bilateral pulmonary infiltrates. ultraSound of the right side of the chest shows pleural effusion small size continue aggressive bronchodilators and Mucomyst. Chest PT.Continue beta-delma and amiodarone. Blood pressure has remained stable.Put her on Lasix drip at 5 mg/h. Continue diuresis with 24 hours. Continue Diamox for alkalosis. Renal following.Patient is on insulin drip for control of her sugars.Patient still has [place] for accurate ins and outs Total critical care time 45 minutes Consultants: cardiology, cardiovascular surgery at [address] [facility] #:[id number] OF REPORTPRProgress [id number]:28:00G.[id number] e for patient [id number]:10:15 HC ACL 2021-12-26 13:48:00 [id number] PoBgYfnAP8rX HCiCx6FxYNEeVSbZZYtpQkr/[id number]:48:[address] [facility] ([facility])Rehab Progress NoteREPORT#:[id number] REPORT STATUS: SignedDATE:12/26/21 TIME: 1348 PATIENT: KIAH GILES UNIT #: [id number]#: [id number] ROOM/BED: 2205-1DOB: [birth year] AGE: 76 SEX: F ATTEND: Jeffry More MDADM AUTHOR: Alicia Pantoja NP * ALL edits or amendments must be made on the electronic/computer document * SubjectiveChief complaint:rehab follow-up Fatigue Still in CVICU Shortness of breath with increased activity Significant generalized weakness Bilateral lower extremity edema No GOLD/N/V/D 14 systems reviewed and negative except that mentioned above. Objective GeneralVS:Vital Signs: Date Time Temp Pulse Resp B/P B/P Pulse O2 O2 Flow FiO2 Mean Ox Delivery Rate 12/26 1105 75 100 12/26 0747 77 100 12/26 0747 100 BiPAP 40 12/26 0710 97.5 72 26 168/64 99 100 12/26 0700 97.7 72 27 147/52 80 91 12/26 0630 96/53 69 / 0630 97.7 75 16 102/42 59 100 12/26 0601 96/55 73 / 0601 97.7 73 15 102/41 57 100 / 0600 97.7 73 13 106/41 58 100 12/26 0545 97.7 72 19 130/47 70 100 / 0538 117/75 91 / 0538 73 21 143/51 78 100 12/26 0500 159/67 97 12/26 0500 97.5 71 29 160/62 96 100 12/26 0430 151/69 99 /14 0430 97.5 70 20 163/60 90 100 / 0400 163/76 109 /14 0400 97.9 72 47 173/64 97 100 / 0350 69 100 50 / 0330 163/71 102 / 0330 98.1 70 22 178/66 100 97 / 0300 170/72 104 / 0300 98.2 73 24 184/70 108 96 12/26 0231 177/81 117 / 0231 98.4 71 30 173/67 102 97 12/26 0200 104/51 74 12/26 0200 98.6 69 16 100/43 57 100 12/26 0131 112/54 78 12/26 0131 98.4 71 16 107/44 60 100 12/26 0101 161/71 102 12/26 0101 98.2 72 33 169/70 104 98 12/26 0100 98.2 72 28 176/70 104 97 12/26 0031 183/76 109 12/26 0031 98.2 70 26 181/67 103 95 12/26 0012 72 98 50 12/26 0000 150/75 105 12/26 0000 98.4 69 23 158/63 93 100 12/25 2330 95/52 70 12/25 2330 98.4 75 17 93/41 54 100 12/25 2322 98.4 75 17 91/41 54 100 12/25 2305 110/55 79 12/25 2305 98.2 75 16 106/44 60 100 12/25 2300 98.2 75 14 118/45 64 100 12/25 2245 98.1 75 32 166/64 100 95 12/25 2200 98.1 72 20 159/52 80 100 12/25 2145 97.9 72 23 179/56 92 100 12/25 2100 97.9 75 44 166/48 79 97 12/25 2045 97.9 74 30 176/53 87 97 12/25 2018 BiPAP 40 12/25 2019 72 98 50 12/25 2002 134/71 93 12/25 2002 97.9 76 31 173/51 83 92 12/26 1999 BiPAP 40 12/25 1945 97.9 76 31 183/54 87 95 12/25 1912 191/78 112 12/25 1912 97.7 75 40 [...] 163/58 89 90 PATIENT WEIGHT: Weight (lb): 270Weight (oz): 8.12Weight (kg): 122.700 Medications:Active Meds + DC'd Last 24 HrsSodium Chloride (SODIUM CHLORIDE) 10 ML BID IV Insulin Glargine (Lantus/Semglee) 10 UNIT DAILY SUBQ Lidocaine HCl (LIDOCAINE 1% 5ML) 5 ML ONCE ONE LOCAL (DC) Sodium Chloride (SODIUM CHLORIDE) 10 ML ASDIR PRN IV Furosemide (LASIX) 240 MG Q24H IV (CKD) IV Miscellaneous Supplies (CONTAINER, BAG) 1 EACHAcetazolamide (DIAMOX) 250 MG ONCE ONE IV (DC) Sterile Water (WATER FOR INJECTION) 5 ML ASDIR PRN IV Potassium Phos/Sodium Phos (NEUTRA-PHOS) 1 UDPKT TID PO (DC) Acetazolamide (DIAMOX) 250 MG ONCE ONE IV (DC) Sterile Water (WATER FOR INJECTION) 5 ML ASDIR PRN IV (DC) Pantoprazole (PROTONIX) 40 MG DAILY PO Sterile Water (WATER FOR INJECTION) 5 ML ASDIR PRN IV (DC) Furosemide (LASIX 40 mg/4 mL INJECTION) 40 MG Q8H IV Dexmedetomidine/Sodium Chloride (PRECEDEX 1000MCG/NS 250ML) 250 ML ASDIR IV Amino Acids/Electrolytes/Dextrose (TPN ADULT- CENTRAL 2000ML) 1,080 ML 2200 IV (DC) Bisacodyl (DULCOLAX) 10 MG DAILY PRN PRN RECTAL Lactulose (LACTULOSE) 20 GM DAILY PRN PRN PO Magnesium Hydroxide (MILK OF MAGNESIA) 30 ML DAILY PRN PRN PO Aspirin (ASPIRIN) 81 MG DAILY PO Clopidogrel Bisulfate (Plavix) 75 MG DAILY PO Cyanocobalamin (Vitamin B-12 500 mcg tab) 500 MCG DAILY PO Ferrous Sulfate (FERROUS SULFATE) 325 MG DAILY PO Metolazone (metOLazone) 5 MG DAILY PO Polyethylene [...] (CKD) Sodium Chloride (SODIUM CHLORIDE 0.9%) 99 MLAcetylcysteine (MUCOMYST FOR RT) 200 MG RTQ6H NEB Albuterol/Ipratropium (DUONEB) 3 ML RTQ6H NEB Bisacodyl (DULCOLAX) 10 MG ONCE PRN RECTAL Dopamine HCl/Dextrose (DOPamine 400MG/D5W 250ML) 250 ML ASDIR IV Milrinone Lactate/Dextrose (MILRINONE 20MG/D5W 100ML) 100 ML ASDIR IV (CKD) Vasopressin (VASOSTRICT 20 Unit/NS 100ML) 100 ML ASDIR IV (CKD) Acetaminophen (TYLENOL) 650 MG Q4H PRN PRN RECTAL Calcium Chloride (CALCIUM CHLORIDE) 1 GM ASDIR PRN IV Dextrose/Water (DEXTROSE 10% IN WATER) 125 ML ASDIR PRN IV (CKD) Dextrose/Water (DEXTROSE 10% IN WATER) 250 ML ASDIR PRN IV (CKD) Glucagon (GLUCAGON) 1 MG ASDIR PRN IM Magnesium Sulfate (MAGNESIUM SULFATE 4GM/SWFI 100ML) 100 ML ASDIR PRN IV Magnesium Sulfate (MAGNESIUM SULFATE 2GM/SWFI 50ML) 50 ML ASDIR PRN IV Magnesium Sulfate/Dextrose (MAGNESIUM SULFATE 1GM/D5W 100ML) 100 ML ASDIR PRN IV Nitroglycerin/Dextrose (NITROGLYCERIN 50,000MCG/D5W 250ML) 250 ML ASDIR IV Norepinephrine Bitartrate (NOREPINEPHRINE 8 MG/NS 250 ML) 250 ML TITRATE IV Potassium Chloride (KCL 20MEQ/SWFI 100ML) 100 ML ASDIR PRN IV Sodium Bicarbonate (SODIUM BICARBONATE) 50 MEQ ASDIR PRN IV Ondansetron HCl (ZOFRAN) 4 MG Q6H PRN PRN IV Physical ExamGeneral appearance: chronically ill appearing, obese, alert, awake, orientedPsych: alert, oriented x 3HEENT: anicteric, mucosal membranes moistNeck: supple, no JVDCardiovascular: regular rate rhythm, no murmurRespiratory: diminished breath sounds (bases ), on oxygen (Hi flow O2 )Abdomen: bowel sounds present, non-distended, soft, non-tenderSkin: dry, intact, no rash, incisions D/IMusculoskeletal - general: Musculoskeletal - general: swelling (BLE +3), moving all ext AGNeuro/[employer]: alert, 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, normal speech, no motor deficits, no sensory deficits ResultsFindings/Data:Laboratory Tests: 12/26 12/26 12/26 12/26 12/26 1242 1242 1134 0928 0543Blood Gas Puncture Site Art Line Art Line [...] Calcium (1.12 - 1.32 MMOL/L) 1.37 H 1.38 H Lactic Acid (0.9 - 1.7 mmol/l) 0.7 L 0.6 L O2 Delivery Device HFNC BiPAP FiO2 (%) 50Chemistry Sodium (134 - 147 mEq/L) 144 Potassium [...] 10.1 Ionized Calcium Gigi (1.09 - 1.30 1.22MMOL/L) Magnesium (1.80 - 2.40 mg/dL) 2.43 H 12/26 12/26 12/25 12/25 7155 6565 1061 2015Blood Gas Puncture Site L Radial Art Line [...] HFNC Vent Rate (/MIN) 26 FiO2 (%) 50Chemistry Sodium (134 - 147 mEq/L) 145 Potassium [...] MG/DL) 2.8 Magnesium (1.80 - 2.40 mg/dL) 2.34Hematology WBC (4.5 - 11.0 x10 3/uL) 6.9 [...] (Auto) (14.0 - 32.0 %) 4.2 L [place] % (Auto) (4.8 - 9.0 %) 12.6 H Eos % (Auto) (0.3 - 3.7 %) 1.3 Baso % (Auto) (0.0 - 2.0 %) 0.1 Neut # (Auto) (2.0 - 7.6 x10 3/uL) 5.34 Lymph # (Auto) (1.0 - 3.8 x10 3/uL) 0.29 L [place] # (Auto) (0.1 - 0.8 x10 3/uL) 0.87 H Eos # (Auto) (0.0 - 0.2 x10 3/uL) 0.09 Baso # (Auto) (0.0 - 0.2 x10 3/uL) 0.01 Abs Immat Gran (auto) (0.00 - 0.03 0.29 Hx10 3/uL) Add Manual Diff NO Immature Gran % (0.0 - 2.0 %) 4.2 H Nucleated RBC % (0 - 0 %) 2.6 H Nucleated RBCs # (Man) (0.0 - 0.1 0.18 Hx10 3/uL) 12/25 1821 1507 1505 1500 Blood [...] - 2.40 mg/dL) 2.16 2.26 Diagnosis, Assessment PlanFree Text A P:Critical illness myopathyStatus post CABG x1 Status post MVRGeneralized weaknessDeconditioningImpaired ADLs, mobility, gait, balance and endurance postoperative anemiaMorbid obesityCADHLD Crohn's diseaseChronic A. fibHypoxic respiratory failure Plan:Continue PT/OTOut of bed to chairWork on strength, bed mobility, transfers, gaitIncrease enduranceFall precautionsMonitor p.o. intake and nutritionStrict decubitus precautionsMonitor anemiaAdvance therapies as toleratedPt currently on TPNOn BIPAP VS Hiflow Diuresising increased - monitor strict I OsMonitor patient in CVICU Will eventually need IRF when medically ready. CLOF: 2Pt IN RECLINER UPON ARRIVAL. Pt IS DEPENDENT 2 PERSON ASSIST WITH SIT TO STAND [...] mgt, and rehab poc, goals. Answered all questionsDaughter at bedside educated her the role of PMR team and the possibility of theneed for IPR once patient is medically stable Rehab attestation:Face to face exam completed. Treatment plan discussed with patient. at 1355 RPT #:[id number] OF REPORTPRProgress [id number]:48:00G.[id number] e for patient e[id number]:55:49 HC ACL 2021-12-26 11:42:00 [id number] MdRQ8l1t/GKw [id number]:42:00 [facility]ist Progress NoteREPORT#:[id number] REPORT STATUS: SignedDATE:12/26/21 TIME: 1142 PATIENT: KIAH GILES UNIT #: [id number]#: [id number] [address] [birth year] AGE: 76 SEX: F ATTEND: Jeffry More AUTHOR: Meryl Rosa MD * ALL edits or amendments must be made on the electronic/computer document * SubjectiveChief complaint:she is on bipap due to sob acute respiratory failure --post CABGHPI: 76 years old female with PMH of macular degeneration, obesity, obstructive sleepapnea (CPAP at home), former smoker, hypertension, hyperlipidemia, diabetes, Crohn's disease, chronic atrial fibrillation status post 3 ablations in the past(on Xarelto), pacemaker placement is admitted to the hospital post cardiac cath . she need CABG . she had sob for years . sob got worse . she was [place] to the [place] . she had cath 3 weeks ago . she was reffered to here for stents placement . she had cath yesterday . it show multiple vessels CAD . she is recommend CABG . she still feel sob . no cp no nausea no vomiting no fever no abdominal pain no dizziness . Review of SystemsConstitutional:Denies: fatigue, fever, lethargy. Respiratory:Reports: SOB. Denies: wheezing. Cardiovascular:Reports: DOUGLASS (dyspnea on exertion), edema. Denies: orthopnea, palpitations. GI:Denies: nausea, vomiting. Neuro:Denies: dizziness. Objective GeneralVS/I O:Vital Signs: Date Time Temp Pulse Resp B/P B/P Pulse O2 O2 Flow FiO2 Mean Ox Delivery Rate 12/26 1105 75 100 / 0747 77 100 / 0747 100 BiPAP 40 / 0710 36.4 72 26 168/64 99 100 12/26 0700 36.5 72 27 147/52 80 91 /14 0630 96/53 69 / 0630 36.5 75 16 102/42 59 100 / 0601 96/55 73 10/ 0601 36.5 73 15 102/41 57 100 / 0600 36.5 73 13 106/41 58 100 / 0545 36.5 72 19 130/47 70 100 10/ 0538 117/75 91 /14 0538 73 21 143/51 78 100 / 0500 159/67 97 / 0500 36.4 71 29 160/62 96 100 / 0430 151/69 99 / 0430 36.4 70 20 163/60 90 100 / 0400 163/76 109 /14 0400 36.6 72 47 173/64 97 100 / 0350 69 100 50 / 0330 163/71 102 10/ 0330 36.7 70 22 178/66 100 97 12/26 0300 170/72 104 12/26 0300 36.8 73 24 184/70 108 96 12/26 0231 177/81 117 12/26 0231 36.9 71 30 173/67 102 97 12/26 0200 104/51 74 10/ 0200 37.0 69 16 100/43 57 100 [...] scale Measurement Method PATIENT WEIGHT: Weight (lb): 270Weight (oz): 8.12Weight (kg): 122.700 Medications:Active Meds + DC'd Last 24 HrsFurosemide (LASIX) 240 MG Q24H IV (CKD) IV Miscellaneous Supplies (CONTAINER, BAG) 1 EACHAcetazolamide (DIAMOX) 250 MG ONCE ONE IV (DC) Sterile Water (WATER FOR INJECTION) 5 ML ASDIR PRN IV Potassium Phos/Sodium Phos (NEUTRA-PHOS) 1 UDPKT TID PO (DC) Acetazolamide (DIAMOX) 250 MG ONCE ONE IV (DC) Sterile Water (WATER FOR INJECTION) 5 ML ASDIR PRN IV (DC) Albumin Human (ALBUMINAR 25%) 100 ML ONCE ONE IV (DC) Potassium Chloride (POTASSIUM CHLORIDE 20MEQ TAB.ER) 40 MEQ ONCE ONE PO (DC) Pantoprazole (PROTONIX) 40 MG DAILY PO Sterile Water (WATER FOR INJECTION) 5 ML ASDIR PRN IV (DC) Furosemide (LASIX 40 mg/4 mL INJECTION) 40 MG Q8H IV Dexmedetomidine/Sodium Chloride (PRECEDEX 1000MCG/NS 250ML) 250 ML ASDIR IV Amino Acids/Electrolytes/Dextrose (TPN ADULT- CENTRAL 2000ML) 1,080 ML 2200 IV (DC) Bisacodyl (DULCOLAX) 10 MG DAILY PRN PRN RECTAL Lactulose (LACTULOSE) 20 GM DAILY PRN PRN PO Magnesium Hydroxide (MILK OF MAGNESIA) 30 ML DAILY PRN PRN PO Aspirin (ASPIRIN) 81 MG DAILY PO Clopidogrel Bisulfate (Plavix) 75 MG DAILY PO Cyanocobalamin (Vitamin B-12 500 mcg tab) 500 MCG DAILY PO Ferrous Sulfate (FERROUS SULFATE) 325 MG DAILY PO Metolazone (metOLazone) 5 MG DAILY PO Polyethylene [...] (CKD) Sodium Chloride (SODIUM CHLORIDE 0.9%) 99 MLAcetylcysteine (MUCOMYST FOR RT) 200 MG RTQ6H NEB Albuterol/Ipratropium (DUONEB) 3 ML RTQ6H NEB Bisacodyl (DULCOLAX) 10 MG ONCE PRN RECTAL Dopamine HCl/Dextrose (DOPamine 400MG/D5W 250ML) 250 ML ASDIR IV Milrinone Lactate/Dextrose (MILRINONE 20MG/D5W 100ML) 100 ML ASDIR IV (CKD) Vasopressin (VASOSTRICT 20 Unit/NS 100ML) 100 ML ASDIR IV (CKD) Acetaminophen (TYLENOL) 650 MG Q4H PRN PRN RECTAL Calcium Chloride (CALCIUM CHLORIDE) 1 GM ASDIR PRN IV Dextrose/Water (DEXTROSE 10% IN WATER) 125 ML ASDIR PRN IV (CKD) Dextrose/Water (DEXTROSE 10% IN WATER) 250 ML ASDIR PRN IV (CKD) Glucagon (GLUCAGON) 1 MG ASDIR PRN IM Magnesium Sulfate (MAGNESIUM SULFATE 4GM/SWFI 100ML) 100 ML ASDIR PRN IV Magnesium Sulfate (MAGNESIUM SULFATE 2GM/SWFI 50ML) 50 ML ASDIR PRN IV Magnesium Sulfate/Dextrose (MAGNESIUM SULFATE 1GM/D5W 100ML) 100 ML ASDIR PRN IV Nitroglycerin/Dextrose (NITROGLYCERIN 50,000MCG/D5W 250ML) 250 ML ASDIR IV Norepinephrine Bitartrate (NOREPINEPHRINE 8 MG/NS 250 ML) 250 ML TITRATE IV Potassium Chloride (KCL 20MEQ/SWFI 100ML) 100 ML ASDIR PRN IV Sodium Bicarbonate (SODIUM BICARBONATE) 50 MEQ ASDIR PRN IV Ondansetron HCl (ZOFRAN) 4 MG Q6H PRN PRN IV Physical ExamGeneral appearance: alert, awake, orientedHead/Eyes: atraumatic, normal conjunctiva/sclera, normal eyelids/periorb., normocephalicENT: intubatedNeck: full range of motion, non-tender, no JVDCardiovascular: normal heart sounds, regular rate rhythmRespiratory: dyspneic, hypercapnia, hypoxia, on oxygen, clear to auscultationAbdomen: non-tender, normal bowel sounds, soft, no distentionExtremities: edema, moves all, no calf tendernessNeuro/[employer]: alert, 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Skin: dry, intact ResultsFindings/Data:Laboratory Tests 12/26 12/26 12/26 12/25 3625 6406 0326 2015 Blood Gas Puncture Site Art Line Art Line L Radial Art Line O2 Saturation (90 [...] %) 25 L 23 L 25 L 24 L ABG Hemoglobin (11.0 - 15.0 G/DL) 8.6 L 7.9 L 8.6 L 8.2 L Martin Test N/A Sodium (134 - 147 MEQ/L) 145 146 144 142 Potassium (3.4 - 5.0 MEQ/L) 3.8 3.7 3.7 3.5 Chloride (100 - 108 MEQ/L) 99 L 98 L 99 L 98 L Ionized Calcium (1.12 - 1.32 MMOL/L) 1.37 H 1.38 H 1.31 1.32 Lactic Acid (0.9 - 1.7 mmol/l) 0.7 L 0.6 L 0.6 L 0.7 L Temperature (F) 98.1 97.9 O2 Delivery Device HFNC BiPAP BiPAP HFNC Vent Rate (/MIN) 26 FiO2 (%) 50 50 Laboratory Tests 12/26 12/26 12/26 12/26 12/26 1242 1242 3652 0937 0543Chemistry Sodium (134 - 147 mEq/L) 144 Potassium [...] 10.1 Ionized Calcium Gigi (1.09 - 1.30 1.22MMOL/L) Magnesium (1.80 - 2.40 mg/dL) 2.43 H 12/26 0325 2351 2015 2014Chemistry Sodium (134 - 147 mEq/L) 145 145 [...] (1.80 - 2.40 mg/dL) 2.34 2.16 12/25 1820 Chemistry POC Glucose (70 - 110 MG/DL) 235 H Laboratory Tests 10/14 0332 Hematology WBC (4.5 - 11.0 x10 [...] (Auto) (14.0 - 32.0 %) 4.2 L [place] % (Auto) (4.8 - 9.0 %) 12.6 H Eos % (Auto) (0.3 - 3.7 %) 1.3 Baso % (Auto) (0.0 - 2.0 %) 0.1 Neut # (Auto) (2.0 - 7.6 x10 3/uL) 5.34 Lymph # (Auto) (1.0 - 3.8 x10 3/uL) 0.29 L [place] # (Auto) (0.1 - 0.8 x10 3/uL) 0.87 H Eos # (Auto) (0.0 - 0.2 x10 3/uL) 0.09 Baso # (Auto) (0.0 - 0.2 x10 3/uL) 0.01 Abs Immat Gran (auto) (0.00 - 0.03 x10 3/uL) 0.29 H Add Manual Diff NO Immature Gran % (0.0 - 2.0 %) 4.2 H Nucleated RBC % (0 - 0 %) 2.6 H Nucleated RBCs # (Man) (0.0 - 0.1 x10 3/uL) 0.18 H Treatment Prophylaxis Treatment ProphylaxisDrain(s)/tube(s): Drain(s)/tube(s): chest (x3) Diagnosis, Assessment PlanConsultants: cardiology, cardiovascular surgery Free Text DxA P NotesFree text DxA P notes: 76 years old female with PMH of macular degeneration, obesity, obstructive sleepapnea (CPAP at home), former smoker, hypertension, hyperlipidemia, diabetes, Crohn's disease, chronic atrial fibrillation status post 3 ablations in the past(on Xarelto), pacemaker placement CAD -- multiple vesssels HTNDM HLDCrohn's diseasechronic atrial fibrillation status post 3 ablationsmacular degenerationobesityobstructive sleep apneaacute respiratory failure --post surgery severe mitral valve [...] MVR (31 Magna valve), CABG x 1 (ROBERTS-LAD), ILAA and pericardectomy -- she remain intubated on the vent -- chest tube are in place -on levophed and epinephrine drip -- monitor in CCU 12/20- she was extubated --on bipap now -- NPO --off Levophed/epinephrine, continue vasopressin, inotropes with milrinone, -- chest tube remain in place -- she is stable post surgery 12/21-- she is on high flow O2 -- edema --lasix --chest tube in place --- she is hemodynamic stable -- continue monitor in CCU 12/22- she remain on high O2 CXR show worsening pulmonary venous vascular congestion. --lasix iv tid -- chest tube are [...] all image and consultants notes Current Medications Sig/Frankie Start time Last Medication Dose Route Stop [...] Sodium 3 GM PREOP ONCALL 12/18 499 CKD Sodium Chloride 250 ML IV 12/18 2358 [...] IV 12/18 1158 Sodium Chloride 1,000 ML .[id number] 12/18 1199 AC 12/17 IV 12/17 1839 1404 Sodium Chloride 500 ML ASDIR PRN 12/17 1200 AC IV 12/18 1158 Adenosine 0 .STK-MED ONE 12/17 1052 DC IV Sodium Chloride 50 ML .STK-MED ONE 12/17 1052 DC IV Iopamidol 100 ML .STK-MED ONE 12/17 1034 DC 12/17 IV 12/17 1035 1034 Fentanyl Citrate 0 .STK-MED ONE 12/17 1019 DC 12/17 .ROUTE 1030 Midazolam HCl 0 .STK-MED ONE 12/17 1019 DC 12/17 .ROUTE 1030 Heparin Sodium/ 500 ML .STK-MED ONE 12/17 0949 DC 12/17 Sodium Chloride IV 1030 Heparin Sodium 0 .STK-MED ONE 12/17 0940 DC 12/17 .ROUTE 1030 Heparin Sodium/ 1,000 ML .STK-MED ONE 12/17 0940 DC 12/17 Sodium Chloride IV 1030 Heparin Sodium/ 500 ML .STK-MED ONE 12/17 0940 DC 12/17 Sodium Chloride IV 1030 Lidocaine HCl 0 .STK-MED ONE 12/17 0940 DC 12/17 .ROUTE 1030 Nitroglycerin/ 250 ML .STK-MED ONE 12/18 939 DC 12/17 Dextrose IV 1030 Verapamil HCl 0 .STK-MED ONE 12/17 0840 DC 12/17 IV 1030 Home Medications:RIVAROXABAN (XARELTO) 20 MG PO DAILY amLODIPine (NORVASC) [...] DAILY INSULIN DETEMIR (LEVEMIR FlexTouch (15mL)) 50 UNITS SUBQ BID INSULIN LISPRO (HumaLOG CARTRIDGE (15mL)) 0 UNITS SUBQ TID LIRAGLUTIDE (VICTOZA (6mL)) 1.8 MG SUBQ DAILY metFORMIN (GLUCOPHAGE) 1,000 MG PO BID ADALIMUMAB + SUPPLIES (HUMIRA PREFILLED PEN) 40 MG SUBQ Q14D azaTHIOprine (IMURAN) 50 MG PO DAILY Quality: Gen Med Crit Care Current MedicationsCurrent medication review:Home Medications:RIVAROXABAN (XARELTO) 20 MG PO DAILY amLODIPine (NORVASC) [...] DAILY INSULIN DETEMIR (LEVEMIR FlexTouch (15mL)) 50 UNITS SUBQ BID INSULIN LISPRO (HumaLOG CARTRIDGE (15mL)) 0 UNITS SUBQ TID LIRAGLUTIDE (VICTOZA (6mL)) 1.8 MG SUBQ DAILY metFORMIN (GLUCOPHAGE) 1,000 MG PO BID ADALIMUMAB + SUPPLIES (HUMIRA PREFILLED PEN) 40 MG SUBQ Q14D azaTHIOprine (IMURAN) 50 MG PO DAILY I attest that the foregoing medication list in the medical record is true, accurate, and complete to the best of my knowledge. at [address] [facility] #:[id number] OF REPORTPRProgress [id number]:42:00G.[id number] e for patient [id number]:33:47 [facility] 2021-12-26 09:56:00 [id number] [id number]:56:[address] [facility] ([facility])Cardiology Progress NoteREPORT#:[id number] REPORT STATUS: SignedDATE:12/26/21 TIME: 0956 PATIENT: KIAH GILES UNIT #: [id number]#: [id number] [address] [birth year] AGE: 76 SEX: F ATTEND: Jeffry More [facility] AUTHOR: Jillian Lane NP * ALL edits or amendments must be made on the electronic/computer document * SubjectiveChief complaint:on bipap Objective GeneralVS/I O:Laboratory Tests 12/26/21 0332:[Embedded Image Not Available] 12/25/21 2015:[Embedded Image Not Available] 12/25/21 1500:[Embedded Image Not Available] 12/25/21 1150:[Embedded Image Not Available] 12/25/21 0358:[Embedded Image Not Available] 12/24/21 2000:[Embedded Image Not Available] 12/24/21 1415:[Embedded Image Not Available]Current Medications Sig/Frankie Start time Last Medication Dose Route Stop Time Status Admin Acetazolamide 250 MG ONCE ONE 12/26 0945 DC IV 12/26 0946 Sterile Water 5 ML ASDIR PRN 12/26 0945 AC IV 12/26 1500 Potassium Phos/ 1 UDPKT TID 12/25 1500 DC 12/26 Sodium Phos PO 12/26 0901 0847 Acetazolamide 250 MG ONCE ONE 12/25 1430 DC 12/25 IV 12/25 1431 1441 Sterile Water 5 ML ASDIR PRN 12/25 1430 DC IV 12/25 2100 Albumin Human 100 ML ONCE ONE 12/25 1200 DC 12/25 IV 12/25 1339 1204 Potassium Chloride 40 MEQ ONCE ONE 12/25 1200 DC 12/25 PO 12/25 1201 1204 Epinephrine 4 MG ASDIR 12/25 0930 DC Dextrose/Water 246 ML IV 01/18 0929 Pantoprazole 40 MG DAILY 12/25 0900 AC 12/26 PO 01/24 0859 0847 Sterile Water 5 ML ASDIR PRN 12/25 0815 DC IV 01/24 0814 Potassium Phosphate 30 MM ONCE ONE 12/25 0530 DC 12/25 Sodium Chloride 250 ML IV 12/25 1129 0647 Furosemide 40 MG Q8H 12/25 0100 AC 12/25 IV 0809 Dexmedetomidine/ 250 ML ASDIR 12/24 2330 AC 12/24 Sodium Chloride IV 01/23 2329 2343 Amino Acids/ 1,080 ML 2200 12/24 2200 DC 12/24 Electrolytes/Dextrose IV 12/25 2159 2116 Bisacodyl 10 MG DAILY PRN PRN 12/24 1545 AC 12/24 RECTAL 01/23 1544 1645 Lactulose 20 GM DAILY PRN PRN 12/24 1330 AC 12/24 PO 01/23 1329 1645 Magnesium Hydroxide 30 ML DAILY PRN PRN 12/24 1330 AC 12/24 PO 01/23 1329 1646 Aspirin 81 MG DAILY 12/24 899 AC 12/26 PO 01/23 0859 0846 Clopidogrel Bisulfate 75 MG DAILY 12/24 899 AC 12/26 PO 01/23 0859 0846 Cyanocobalamin 500 MCG DAILY 12/24 899 AC 12/26 PO 01/23 0859 0848 Ferrous Sulfate 325 MG DAILY 12/24 899 AC 12/26 PO 01/23 0859 0847 Metolazone 5 MG DAILY 12/24 899 AC 12/25 PO 01/23 0859 0856 Polyethylene Glycol 17 GM DAILY 12/24 899 AC 12/24 PO 01/23 0859 1056 Fat Emulsion 250 ML 2200 12/23 2200 DC 12/24 IV 12/25 2159 2343 Atorvastatin Calcium 40 MG 2100 12/23 2100 AC 12/25 PO 01/22 2059 205 Docusate Sodium 100 MG BID 12/23 2100 AC 12/24 PO 01/22 205 211 Metoprolol Tartrate 12.5 MG Q12HR 12/23 2100 AC 12/26 PO 01/22 205 0847 Senna 17.6 MG BEDTIME 12/23 2100 AC 12/23 PO 01/22 205 2105 Amiodarone HCl 200 MG TID 12/23 1500 AC 12/26 PO 01/22 1459 0847 Acetaminophen 650 MG Q4H PRN PRN 12/23 1200 AC 12/24 PO 01/22 1147 1058 Tramadol HCl 25 MG Q4H PRN PRN 12/23 1200 AC PO 12/28 1154 Tramadol HCl 50 MG Q4H PRN PRN 12/23 1200 AC 12/23 PO 12/28 1154 2104 Insulin Human Regular [...] Dextrose/Water 1,000 ML ASDIR PRN 12/21 1145 DC IV 01/20 1144 Miscellaneous 1 EACH ASDIR 12/21 111 DC Information IV 01/20 1114 Dopamine HCl/Dextrose 250 ML ASDIR 12/21 799 AC 12/20 IV 01/19 0759 0829 Milrinone Lactate/ [...] Sulfate 100 ML ASDIR PRN 12/19 1115 AC IV 01/18 1114 Magnesium Sulfate 50 ML [...] hour I O ending at 0700: 12/26 0712/25 1900 Intake Total 790.30 971.00 Output Total [...] O2 Flow FiO2 Mean Ox Delivery Rate 12/26 0747 77 100 /14 0747 100 BiPAP 40 /14 0710 36.4 72 26 168/64 99 100 /14 0700 36.5 72 27 147/52 80 91 10/14 0630 96/53 69 /14 0630 36.5 75 16 102/42 59 100 /14 0601 96/55 73 10/14 0601 36.5 73 15 102/41 57 100 /14 0600 36.5 73 13 106/41 58 100 /14 0545 36.5 72 19 130/47 70 100 /14 0538 117/75 91 /14 0538 73 21 143/51 78 100 10/14 0500 159/67 97 /14 0500 36.4 71 29 160/62 96 100 10/14 0430 151/69 99 /14 0430 36.4 70 20 163/60 90 100 /14 0400 163/76 109 10/14 0400 36.6 72 47 173/64 97 100 /14 0350 69 100 50 10/14 0330 163/71 102 10/14 0330 36.7 70 22 178/66 100 97 10/14 0300 170/72 104 /14 0300 36.8 73 24 184/70 108 96 10/14 0231 177/81 117 10/14 0231 36.9 71 30 173/67 102 97 10/14 0200 104/51 74 10/14 0200 37.0 69 16 100/43 57 100 10/14 0131 112/54 78 10/14 0131 36.9 71 16 107/44 60 100 10/14 0101 161/71 102 10/14 0101 36.8 72 33 169/70 104 98 10/14 0100 36.8 72 28 176/70 104 97 10/14 0031 183/76 109 10/14 0031 36.8 70 26 181/67 103 95 10/14 0012 72 98 50 12/26 0000 150/75 [...] 102/39 56 100 PATIENT WEIGHT: Weight (lb): 270Weight (oz): 8.12Weight (kg): 122.700 Status post:CABG, MVR, and ILAA Physical ExamGeneral appearance: chronically ill appearing, respiratory supportENT: moist mucosal membranesNeck: no JVDCardiovascular: CV assessment: regular rate and rhythmRespiratory: decreased breath sounds, on oxygenAbdomen: obeseGenitourinary: no flank pain, no urinary catheterUpper extremity: UE assessment: normal temperature, no edemaLower extremity: LE assessment: edemaSkin: dry, intactPsychiatry: normal affect, normal mood ResultsRadiology data:Recent Impressions:RADIOLOGY - XR CHEST 1 V 12/27 611 [...] bilateral pleural effusions. No pneumothorax is visible. Impression By: AureliaBP7 - Bill Kern M.D. Diagnosis, Assessment PlanConsultants: cardiology, cardiovascular surgery Free Text DxA P NotesFree Text DxA P Notes:Ms Giles is a 76 y/o Femal w/ PMHx: CAD, HLD, T2DM, RONA (CPAP at home), smoker,Crohn's disease, AF s/p ablation (on Xarelto), s/p PPM and lymphedema. Dr. Ramos is consulted for CAD s/p CABG, MVR. - CAD s/p CABG, MVR, and ILAA. post-op per CTS and critical care On Plavix, aspirin, beta-delma, statin volume management per Nephrology - Chr AF s/p PPM/ablation. Rate controlled, paced rhythm. had ILAA during bypass - HTN. BP stable - HLD. On statins. - Crohn's disease. Per IM. -MARCELLO - resolvingper Nephrology -Resp insufficiency on BIPAP per critical care -Diastolic CHF/volume overload negative fluid balance but patient is still volume overloaded diuretic management per nephrology/CTS at 1143 at 2254 RPT #:[id number] OF REPORTPRProgress [id number]:56:00G.[id number] e for patient yefnQHVMUTVNJCKCYF6432-21-73M80:44:13 [facility] 2021-12-25 20:33:00 [id number]/hCiS+s84FQ fxOZeeispmpr ao7jknxAbo7TrP/vD1K6GwHU4698-14-49K49:33:[address] [facility] ([facility])Nephrology Progress NoteREPORT#:[id number] REPORT STATUS: SignedDATE:12/25/21 TIME: 2032 PATIENT: KIAH GILES UNIT #: [id number]#: [id number] [address] [birth year] AGE: 76 SEX: F ATTEND: Jeffry More MDADM AUTHOR: Suki Fuchs MD * ALL edits or amendments must be made on the electronic/computer document * SubjectiveChief complaint:chest painHPI:This is a 76-year-old female who has past medical history of hypertension, diabetes, coronary artery disease, atrial fibrillation who presented with worsening shortness of breath and on further work-up was 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 She was withnormal kidney function prior to surgery and after her surgery she began to develop oliguria. Her procedure was done without any complications but after her surgery she did require pressor support for hypotension and she was intubated for respiratory acidosis and hypoxia and she was treated with vancomycin for infection treatment. When she was seen this morning she continued to have hypotension and her heart rate was paced by her permanent pacemaker and her urine output was 20 to 30/h. Her family at bedside denied anyhistory of kidney disease, kidney stone, chronic NSAID use or any urinary complaints. They also endorse that her blood pressure and diabetes were mostly controlled. 12/25Appearing comfortable, not in any distress,on BIPAP this morning. Objective GeneralVS/I O:Vital Signs: Date Time Temp Pulse Resp B/P B/P Pulse O2 O2 Flow FiO2 Mean Ox Delivery Rate 12/25 2018 BiPAP 40 12/25 2018 72 98 50 12/25 1831 36.6 72 33 181/52 85 91 12/25 1801 168/125 136 12/25 1801 36.5 72 48 155/41 67 85 12/25 1800 36.5 75 44 149/37 66 74 12/25 1731 156/64 92 12/25 173 36.4 72 24 157/41 70 99 12/25 [...] 109/41 60 100 12/25 0901 129/75 90 10/13 0901 36.0 71 22 132/45 73 99 [...] scale Measurement Method PATIENT WEIGHT: Weight (lb): 267Weight (oz): 13.79Weight (kg): 121.500 Physical ExamGeneral appearance: alert, awake, orientedHead/eyes: atraumatic, normocephalicENT: ET tubeNeck: no JVD, no lymphadenopathyCardiovascular: normal heart sounds, regular rate and rhythmRespiratory: aerating well, clear to auscultationAbdomen: soft, no pulsatile massGenitourinary: urinary catheterExtremities: pitting edema, no gangrene, no swelling Treatment Prophylaxis Treatment ProphylaxisDrain(s)/tube(s): Drain(s)/tube(s): chest (x3) Diagnosis, Assessment PlanFree Text A P:This is a 76-year-old female known to have hypertension, diabetes, atrial fibrillation, s/p permanent pacemaker and history of ablation presenting with shortness of breath and 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 Nephrology is following for: 1. Acute kidney injury: Most likely it is prerenal (cardiorenal), she has been hypotensive postoperatively with requirement for pressor support and inotropic support. Plan is to increase inotropic support or pressor support to bring meanarterial pressure above 65 and give albumin with Lasix to see if it helps him diurese. If he does not respond to higher dose Lasix with albumin then I will consider starting him on CRRT to prevent hyper volemia. 2. Hypervolemia: Plan is to give Lasix and if he does not respond to start him on CRRT for extra fluid removal. 3. His electrolytes were all reviewed to be in normal range plan was to monitorand replace as needed. 4. He was receiving vancomycin so plan was to monitor vancomycin trough levels to prevent ATN. . Acute kidney injury: Most likely it is prerenal (cardiorenal), she has been hypotensive postoperatively with requirement for pressor support and inotropic support. She responded to Lasix after her blood pressure improved with higher dose vasopressin and she was given albumin. Plan was to continue twice a day Lasix and albumin for hypervolemia. 2. Hypervolemia: Plan is to give Lasix with albumin twice daily and increase dose if needed. 3. His electrolytes were all reviewed to be in normal range plan was to monitorand replace as needed. 4. He was receiving vancomycin so plan was to monitor vancomycin trough levels to prevent ATN. 12/22 1. Acute kidney injury: Most likely it is prerenal (cardiorenal), she has been hypotensive postoperatively with requirement for pressor support and inotropic support. She responded to Lasix after her blood pressure improved with higher dose vasopressin and she was given albumin. Plan was to continue Lasix and albumin for hypervolemia.Plan to increase dose to reach goal of 1 L negative Q12H. 2. Hypervolemia: Plan is to give Lasix with albumin and increase dose if needed. 3. His electrolytes were all reviewed to be in normal range plan was to monitorand replace as needed. 4. He was receiving vancomycin so plan was to monitor vancomycin trough levels to prevent ATN. 12/23 1. Acute kidney injury: Most likely it is prerenal (cardiorenal), she has been hypotensive postoperatively with requirement for pressor support and inotropic support. She responded to Lasix after her blood pressure improved with higher dose vasopressin and she was given albumin. Plan was to continue Lasix and albumin for hypervolemia.Plan to increase dose to reach goal of 1 L negative Q12H. 2. Hypervolemia: Plan is to give Lasix with albumin and increase dose if needed. 3. Her electrolytes were all reviewed to be in normal range plan was to monitor and replace as needed. 4. She was receiving vancomycin so plan was to monitor vancomycin trough levelsto prevent ATN. 5/ Metabolic alkalosis secondary to diuretics : Plan to give acetazoleamide if worsening. 12/24 1. Acute kidney injury: Resolved, she is responding to lasix. 2. Hypervolemia: Plan to continue lasix as tolerated. 3. Her electrolytes were all reviewed to be in normal range plan was to monitor and replace as needed. 4. She was receiving vancomycin so plan was to monitor vancomycin trough levelsto prevent ATN. 5/ Metabolic alkalosis secondary to diuretics : Plan to give acetazoleamide if worsening. 12/25 1. Acute kidney injury: Resolved, she is responding to lasix. 2. Hypervolemia: Plan to continue lasix as tolerated.Today it was held for metabolic alkalosis. 3. Her electrolytes were all reviewed to be in normal range plan was to monitor and replace as needed. 4. She was receiving vancomycin so plan was to monitor vancomycin trough levelsto prevent ATN. 5/ Metabolic alkalosis secondary to diuretics : Plan to give acetazoleamide if worsening. Consultants: cardiology, cardiovascular surgery at 2234 RPT #:[id number] OF REPORTPRProgress [id number]:33:00G.[id number] e for patient [id number]:34:59 [facility] ACL 2021-12-25 18:08:00 [id number] uS+NYIEOiB24 [id number]:08:00 [facility])Cardiothoracic Surgery ProgREPORT#:[id number] REPORT STATUS: SignedDATE:12/25/21 TIME: 180 PATIENT: KIAH GILES UNIT #: [id number]#: [id number] [address] [birth year] AGE: 76 SEX: F ATTEND: Jeffry More AUTHOR: Tj Bonner MD * ALL edits or amendments must be made on the electronic/computer document * GeneralPost-op: day 6Status post:1. Mitral valve replacement (31 Magna valve). 2. Coronary artery bypass graft surgery x1 (ROBERTS to LAD). 3. Isolation of left atrial appendage. 4. Pericardiectomy. SubjectiveChief complaint:Shortness of breath Review of SystemsConstitutional:Denies: fever, malaise. Allergy/Immun:Denies: allergic reaction. ENT:Denies: sore throat. Respiratory:Denies: SOB. GI:Denies: abdominal pain. Heme:Denies: bleeding. Neuro:Denies: focal weakness, headache. All systems rev neg: except as marked Objective GeneralVS/I OLast Documented: Result Date Time Pulse Ox 96 12/26 1723 B/P 155/42 12/26 1723 B/P Mean 71 12/26 1723 Temp 36.4 10/13 1724 Pulse 75 12/25 1724 Resp 31 12/25 [...] scale Measurement Method PATIENT WEIGHT: Weight (lb): 267Weight (oz): 13.79Weight (kg): 121.500 Dietitian Nutrition assessmentThe data set between the solid lines has been imported from the dietitian's assessment. BMI Calculated: 46.0Nutrition related diagnosis: Morbid obesityNutrition diagnosis details: BMI 40 or moreNutrition problem: Increased nutrient needsNutrition etiology: Chronic diseaseNutrition signs and symptoms: S/P CABGNutrition prescription: 1. CONTINUE REGULAR DIET TO LIBERALIZE FOOD CHOICES ANDHELP INCREASE PO INTAKE. 2. PROVIDE GLUCERNA 4 PER DAY. 3. MONITOR PO, WT, LABS,BM.Dietitian name: Serenity Garner, DIETAssessment completed: 12/25/21 Physical ExamGeneral appearance: lethargicWound/incision: Location:sternal Site condition: dressing clean dry, dressing intactHEENT: anictericNeck: supple/no meningismusCardiovascular: normal heart sounds, regular rate rhythmRespiratory: aerating well, symmetric expansion, no distressAbdomen: soft, non-tenderExtremities: moves allNeuro/[employer]: alert, 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, normal speechSkin: dry, intact, normal temperaturePsychiatry: normal affect, normal mood Current MedicationsMedications:Active Meds + DC'd Last 24 HrsPotassium Phos/Sodium Phos (NEUTRA-PHOS) 1 UDPKT TID PO Acetazolamide (DIAMOX) 250 MG ONCE ONE IV (DC) Sterile Water (WATER FOR INJECTION) 5 ML ASDIR PRN IV Albumin Human (ALBUMINAR 25%) 100 ML ONCE ONE IV (DC) Potassium Chloride (POTASSIUM CHLORIDE 20MEQ TAB.ER) 40 MEQ ONCE ONE PO (DC) Epinephrine (ADRENALIN CHLORIDE) 4 MG ASDIR IV (DC) Dextrose/Water (DEXTROSE 5% WATER) 246 MLPantoprazole (PROTONIX) 40 MG DAILY PO Acetazolamide (DIAMOX) 250 MG ONCE ONE IV (DC) Sterile Water (WATER FOR INJECTION) 5 ML ASDIR PRN IV (DC) Potassium Phosphate (POTASSIUM PHOSPHATE) 30 MM ONCE ONE IV (DC) Sodium Chloride (SODIUM CHLORIDE 0.9%) 250 MLFurosemide (LASIX 40 mg/4 mL INJECTION) 40 MG Q8H IV Dexmedetomidine/Sodium Chloride (PRECEDEX 1000MCG/NS 250ML) 250 ML ASDIR IV Amino Acids/Electrolytes/Dextrose (TPN ADULT- CENTRAL 2000ML) 1,080 ML 2200 IV Potassium Chloride (POTASSIUM CHLORIDE 20MEQ TAB.ER) 40 MEQ ONCE ONE PO (DC) Bisacodyl (DULCOLAX) 10 MG DAILY PRN PRN RECTAL Sterile Water (WATER FOR INJECTION) 5 ML ASDIR PRN IV (DC) Lactulose (LACTULOSE) 20 GM DAILY PRN PRN PO Magnesium Hydroxide (MILK OF MAGNESIA) 30 ML DAILY PRN PRN PO Aspirin (ASPIRIN) 81 MG DAILY PO Clopidogrel Bisulfate (Plavix) 75 MG DAILY PO Cyanocobalamin (Vitamin B-12 500 mcg tab) 500 MCG DAILY PO Ferrous Sulfate (FERROUS SULFATE) 325 MG DAILY PO Metolazone (metOLazone) 5 MG DAILY PO Polyethylene Glycol (MIRALAX) 17 GM DAILY PO Amino Acids/Electrolytes/Dextrose (TPN ADULT- CENTRAL 1000ML) 960 ML 2200 IV (DC) Fat [...] (CKD) Sodium Chloride (SODIUM CHLORIDE 0.9%) 99 MLFurosemide (LASIX 40 mg/4 mL INJECTION) 60 MG Q8H IV (DC) Acetylcysteine (MUCOMYST FOR RT) 200 MG RTQ6H NEB Albuterol/Ipratropium (DUONEB) 3 ML RTQ6H NEB Bisacodyl (DULCOLAX) 10 MG ONCE PRN RECTAL Dextrose/Water (Dextrose 10% 1,000 mL) 1,000 ML ASDIR PRN IV (DC) Miscellaneous Information (TPN (Central) PHARMACY TO DOSE) 1 EACH ASDIR IV (DC) Dopamine HCl/Dextrose (DOPamine 400MG/D5W 250ML) 250 ML ASDIR IV Milrinone Lactate/Dextrose (MILRINONE 20MG/D5W 100ML) 100 ML ASDIR IV (CKD) Vasopressin (VASOSTRICT 20 Unit/NS 100ML) 100 ML ASDIR IV (CKD) Acetaminophen (TYLENOL) 650 MG Q4H PRN PRN RECTAL Calcium Chloride (CALCIUM CHLORIDE) 1 GM ASDIR PRN IV Dextrose/Water (DEXTROSE 10% IN WATER) 125 ML ASDIR PRN IV (CKD) Dextrose/Water (DEXTROSE 10% IN WATER) 250 ML ASDIR PRN IV (CKD) Epinephrine (ADRENALIN CHLORIDE) 5 MG ASDIR IV (DC) Dextrose/Water (DEXTROSE 5% WATER) 245 MLGlucagon (GLUCAGON) 1 MG ASDIR PRN IM Magnesium Sulfate (MAGNESIUM SULFATE 4GM/SWFI 100ML) 100 ML ASDIR PRN IV Magnesium Sulfate (MAGNESIUM SULFATE 2GM/SWFI 50ML) 50 ML ASDIR PRN IV Magnesium Sulfate/Dextrose (MAGNESIUM SULFATE 1GM/D5W 100ML) 100 ML ASDIR PRN IV Nitroglycerin/Dextrose (NITROGLYCERIN 50,000MCG/D5W 250ML) 250 ML ASDIR IV Norepinephrine Bitartrate (NOREPINEPHRINE 8 MG/NS 250 ML) 250 ML TITRATE IV Potassium Chloride (KCL 20MEQ/SWFI 100ML) 100 ML ASDIR PRN IV Sodium Bicarbonate (SODIUM BICARBONATE) 50 MEQ ASDIR PRN IV Ondansetron HCl (ZOFRAN) 4 MG Q6H PRN PRN IV Vancomycin HCl (VANCOMYCIN HCL) 1,750 MG PREOP ONCALL IV (DC) Sodium Chloride (NS 0.9%) 500 ML ResultsFindings/Data:Laboratory Tests 12/25 12/25 12/25 12/25 1505 1148 1011 0907 Blood Gas Puncture Site Art Line Art Line Art Line Art Line O2 [...] - 26.0 MMOL/L) 41.2 *H 39.6 *H 37.2 *H 39.0 *H ABG Total CO2 43.4 41.6 39.2 41.2 ABG Base Excess (-4.0 - 4.0 MMOL/L) 15.8 H 14.4 H 11.8 H 13.4 H ABG Hematocrit (33.0 - 45.0 %) 25 L 24 L 24 L 26 L ABG Hemoglobin (11.0 - 15.0 G/DL) 8.5 L 8.2 L 8.2 L 9.0 L Sodium (134 - 147 MEQ/L) 146 145 146 145 Potassium (3.4 - 5.0 MEQ/L) 3.7 3.2 L 3.3 L 3.4 Chloride (100 - 108 MEQ/L) 97 L 98 L 99 L 99 L Ionized Calcium (1.12 - 1.32 MMOL/L) 1.36 H 1.35 H 1.32 1.37 H Lactic Acid (0.9 - 1.7 mmol/l) 0.7 L 0.6 L 0.6 L 0.7 L O2 Delivery Device HFJV BiPAP BiPAP HFNC FiO2 (%) 45 45 75 12/25 12/24 0352000 Blood Gas Puncture Site Art Line Art [...] Calcium (1.12 - 1.32 MMOL/L) 1.38 H 1.29 Lactic Acid (0.9 - 1.7 mmol/l) 0.6 L 0.6 L Temperature (F) 98 98.1 O2 Delivery Device HFNC BiPAP Vent Mode BiLevel Vent Rate (/MIN) 26 FiO2 (%) 75 50 PEEP (cmH2O) 10 Pressure Support (cmH2O) 18 Laboratory Tests 12/25 12/25 12/25 12/25 12/25 1507 1505 1500 1150 1148Chemistry Sodium (134 - 147 mEq/L) 146 146 [...] 12/25 12/25 12/25 1011 0907 0745 0358 0353Chemistry Sodium (134 - 147 mEq/L) 145 Potassium [...] L Total Alk Phosphatase (20 - 125 73IUnit/L) Total Protein (6.4 - 8.2 g/dL) 6.8 [...] (Auto) (14.0 - 32.0 %) 4.6 L [place] % (Auto) (4.8 - 9.0 %) 13.8 H Eos % (Auto) (0.3 - 3.7 %) 1.7 Baso % (Auto) (0.0 - 2.0 %) 0.3 Neut # (Auto) (2.0 - 7.6 x10 3/uL) 5.04 Lymph # (Auto) (1.0 - 3.8 x10 3/uL) 0.30 L [place] # (Auto) (0.1 - 0.8 x10 3/uL) 0.90 H Eos # (Auto) (0.0 - 0.2 x10 3/uL) 0.11 Baso # (Auto) (0.0 - 0.2 x10 3/uL) 0.02 Abs Immat Gran (auto) (0.00 - 0.03 x10 3/uL) 0.14 H Add Manual Diff NO Immature Gran % (0.0 - 2.0 %) 2.2 H Nucleated RBC % (0 - 0 %) 2.2 H Nucleated RBCs # (Man) (0.0 - 0.1 x10 3/uL) 0.14 H Radiology data:Recent Impressions:RADIOLOGY - XR CHEST 1 V 12/25 0701 Report Impression - Status: SIGNED Entered: 12/25/2021 4089 IMPRESSION: No significant change.Impression By: AureliaABAníbal - Hardik Montanez M.D. Results: rythm personally rev'd, x-ray personally reviewed, current med profile rev'd Treatment Prophylaxis Treatment ProphylaxisOxygen: CPAP/BIPAPLines: arterial, CVC, peripheralDrain(s)/tube(s): Drain(s)/tube(s): chest (x3) Quality: Trauma Gen Surg Current MedicationsCurrent medication review:Home Medications:RIVAROXABAN (XARELTO) 20 MG PO DAILY amLODIPine (NORVASC) [...] DAILY INSULIN DETEMIR (LEVEMIR FlexTouch (15mL)) 50 UNITS SUBQ BID INSULIN LISPRO (HumaLOG CARTRIDGE (15mL)) 0 UNITS SUBQ TID LIRAGLUTIDE (VICTOZA (6mL)) 1.8 MG SUBQ DAILY metFORMIN (GLUCOPHAGE) 1,000 MG PO BID ADALIMUMAB + SUPPLIES (HUMIRA PREFILLED PEN) 40 MG SUBQ Q14D azaTHIOprine (IMURAN) 50 MG PO DAILY I attest that the foregoing medication list in the medical record is true, accurate, and complete to the best of my knowledge. Diagnosis, Assessment PlanHospital course to date:This very pleasant 76-year-old female, from [facility], with past medical history of macular degeneration, obesity, obstructive sleep apnea (CPAP at home), former smoker, hypertension, hyperlipidemia, diabetes, Crohn's disease, chronic atrial fibrillation status post 3 ablations in the past (on Xarelto), pacemaker placement who had a recent admission to the hospital with heart failure symptoms. She has been admitted to the hospital today for elective heartcath. Coronary angiogram showed severe multivessel coronary artery disease suitable for percutaneous intervention. CV surgery called for evaluation. 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 She will benefit from off-pump ROBERTS to LAD and pericardiotomy. Dr. Romero explainedto the patient the surgery, risks involved, STS score, benefits, complications and alternatives. She acknowledged understanding and is willing to proceedPreop work-up has been initiatedWe will tentatively schedule patient for surgery tomorrow. 12/18 Preop assessment ongoingNo carotid stenosis on ultrasoundCT chest reviewed with Dr. Singhurgery rescheduled for tomorrowNPO after midnight Plan discussed with the patient 12/20 POD 1Patient hemodynamically stable, cardiac index 3.1Required Bipap after extubation yesterday and overnightTrend ABGs- wean bipap as toleratedDecrease milrinone drip to 0.125, and continue vasopressin at 0.02 Urine output marginal- dopamine drip started at 3Creatinine increased to 1.4, monitor strict I and O'sEncourage po intake, incentive spirometer useTry to get patient out of bed to chair today PT/OTMonitor patient closely in the CVICU 12/22/21POD3d/c chest tubesneed to diuresis agressively 40 u28agbtb needs legs elevatedcxr appears wetd/c swanTPN due to bipapteleflex today keep TPN for now 12/23 POD 4Labs and cxr reviewedIncrease diuresis- monitor strict I OsContinue TPNOn teleflex 60L 70%- wean as toleratedMonitor patient in CVICU 10/13/22 POD 6back on bipapif reintubate consider trach still on TPNif trach consider PEG Consultants: cardiology, cardiovascular surgery at 1810 RPT #:[id number] OF REPORTPRProgress [id number]:08:00G.[id number] e for patient qvrrBZDNAVCQPCWAOX0931-18-25Q91:10:59 HC ACL 2021-12-25 17:24:00 [id number] P/4vAJu2fV+R rrTVe+5lIERv+xOZk0aFj7X42518-48-52J11:24:[address] [facility] ([facility])Critical Care Progress NoteREPORT#:[id number] REPORT STATUS: SignedDATE:12/25/21 TIME: 1724 PATIENT: KIAH GILES UNIT #: [id number]#: [id number] [address] [birth year] AGE: 76 SEX: F ATTEND: Jeffry More MDADM AUTHOR: Ricky Goodwin MD * ALL edits or amendments must be made on the electronic/computer document * SubjectiveChief complaint:CABG/MVRHPI:76-year-old morbidly obese female with history of HTN, HL, IDDM, smoking, RONA onCPAP and home O2 as needed, macular degeneration, Crohn's disease on immunosuppressant medications, and chronic Afib s/p ablation and PPM (on Xarelto), who was admitted recently with heart failure symptoms. Patient underwent elective cardiac cath that showed severe multivessel coronary artery disease notsuitable for percutaneous intervention. 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 She went for surgical revascularization today and preop JORDEN revealed severe mitral regurgitation. After discussing new findings with family, patient underwent MVR (31 Magna valve), CABG x 1 (ROBERTS-LAD), ILAA and pericardectomy on 12/19/2021. Has EF of 45%. Crystalloid 1 L, urine output 700, Cell Saver 700. She is a-paced at baseline. Surgery went well and patient was transferred to CVICU postop in a stable surgical condition. She is currentlyintubated on 2 mics of epinephrine, 2 mics of Levophed and insulin drip. CI 3.0,SvO2 in 60%s, CVP 15 and PAP in 60s. Comments:Interval history- Patient has improving oxygenation. Was on BiPAP last night. But was then weaned down to Teleflex. Is on nasal cannula 15 L today.And is having contraction alkalosis bicarb is 40. Was given 1 dose of Diamox inthe morning plan to repeat another dose of Diamox and hold Lasix for now. To reassess and then dose Lasix.Patient has been eating her meals so we will stop TPN today. Objective GeneralVS/I OLast Documented: Result Date Time Pulse Ox 96 12/25 1724 B/P 155/42 12/25 1724 B/P Mean 71 12/25 172 Temp 36.4 12/25 172 Pulse 75 12/25 [...] scale Measurement Method PATIENT WEIGHT: Weight (lb): 267Weight (oz): 13.79Weight (kg): 121.500 Medications:Active Meds + DC'd Last 24 HrsPotassium Phos/Sodium Phos (NEUTRA-PHOS) 1 UDPKT TID PO Acetazolamide (DIAMOX) 250 MG ONCE ONE IV (DC) Sterile Water (WATER FOR INJECTION) 5 ML ASDIR PRN IV Albumin Human (ALBUMINAR 25%) 100 ML ONCE ONE IV (DC) Potassium Chloride (POTASSIUM CHLORIDE 20MEQ TAB.ER) 40 MEQ ONCE ONE PO (DC) Epinephrine (ADRENALIN CHLORIDE) 4 MG ASDIR IV (DC) Dextrose/Water (DEXTROSE 5% WATER) 246 MLPantoprazole (PROTONIX) 40 MG DAILY PO Acetazolamide (DIAMOX) 250 MG ONCE ONE IV (DC) Sterile Water (WATER FOR INJECTION) 5 ML ASDIR PRN IV (DC) Potassium Phosphate (POTASSIUM PHOSPHATE) 30 MM ONCE ONE IV (DC) Sodium Chloride (SODIUM CHLORIDE 0.9%) 250 MLFurosemide (LASIX 40 mg/4 mL INJECTION) 40 MG Q8H IV Dexmedetomidine/Sodium Chloride (PRECEDEX 1000MCG/NS 250ML) 250 ML ASDIR IV Amino Acids/Electrolytes/Dextrose (TPN ADULT- CENTRAL 2000ML) 1,080 ML 2200 IV Potassium Chloride (POTASSIUM CHLORIDE 20MEQ TAB.ER) 40 MEQ ONCE ONE PO (DC) Bisacodyl (DULCOLAX) 10 MG DAILY PRN PRN RECTAL Sterile Water (WATER FOR INJECTION) 5 ML ASDIR PRN IV (DC) Lactulose (LACTULOSE) 20 GM DAILY PRN PRN PO Magnesium Hydroxide (MILK OF MAGNESIA) 30 ML DAILY PRN PRN PO Aspirin (ASPIRIN) 81 MG DAILY PO Clopidogrel Bisulfate (Plavix) 75 MG DAILY PO Cyanocobalamin (Vitamin B-12 500 mcg tab) 500 MCG DAILY PO Ferrous Sulfate (FERROUS SULFATE) 325 MG DAILY PO Metolazone (metOLazone) 5 MG DAILY PO Polyethylene Glycol (MIRALAX) 17 GM DAILY PO Amino Acids/Electrolytes/Dextrose (TPN ADULT- CENTRAL 1000ML) 960 ML 2200 IV (DC) Fat [...] (CKD) Sodium Chloride (SODIUM CHLORIDE 0.9%) 99 MLFurosemide (LASIX 40 mg/4 mL INJECTION) 60 MG Q8H IV (DC) Acetylcysteine (MUCOMYST FOR RT) 200 MG RTQ6H NEB Albuterol/Ipratropium (DUONEB) 3 ML RTQ6H NEB Bisacodyl (DULCOLAX) 10 MG ONCE PRN RECTAL Dextrose/Water (Dextrose 10% 1,000 mL) 1,000 ML ASDIR PRN IV (DC) Miscellaneous Information (TPN (Central) PHARMACY TO DOSE) 1 EACH ASDIR IV (DC) Dopamine HCl/Dextrose (DOPamine 400MG/D5W 250ML) 250 ML ASDIR IV Milrinone Lactate/Dextrose (MILRINONE 20MG/D5W 100ML) 100 ML ASDIR IV (CKD) Vasopressin (VASOSTRICT 20 Unit/NS 100ML) 100 ML ASDIR IV (CKD) Acetaminophen (TYLENOL) 650 MG Q4H PRN PRN RECTAL Calcium Chloride (CALCIUM CHLORIDE) 1 GM ASDIR PRN IV Dextrose/Water (DEXTROSE 10% IN WATER) 125 ML ASDIR PRN IV (CKD) Dextrose/Water (DEXTROSE 10% IN WATER) 250 ML ASDIR PRN IV (CKD) Epinephrine (ADRENALIN CHLORIDE) 5 MG ASDIR IV (DC) Dextrose/Water (DEXTROSE 5% WATER) 245 MLGlucagon (GLUCAGON) 1 MG ASDIR PRN IM Magnesium Sulfate (MAGNESIUM SULFATE 4GM/SWFI 100ML) 100 ML ASDIR PRN IV Magnesium Sulfate (MAGNESIUM SULFATE 2GM/SWFI 50ML) 50 ML ASDIR PRN IV Magnesium Sulfate/Dextrose (MAGNESIUM SULFATE 1GM/D5W 100ML) 100 ML ASDIR PRN IV Nitroglycerin/Dextrose (NITROGLYCERIN 50,000MCG/D5W 250ML) 250 ML ASDIR IV Norepinephrine Bitartrate (NOREPINEPHRINE 8 MG/NS 250 ML) 250 ML TITRATE IV Potassium Chloride (KCL 20MEQ/SWFI 100ML) 100 ML ASDIR PRN IV Sodium Bicarbonate (SODIUM BICARBONATE) 50 MEQ ASDIR PRN IV Ondansetron HCl (ZOFRAN) 4 MG Q6H PRN PRN IV Vancomycin HCl (VANCOMYCIN HCL) 1,750 MG PREOP ONCALL IV (DC) Sodium Chloride (NS 0.9%) 500 ML ResultsFindings/data:Laboratory Tests 12/25 12/25 12/25 12/25 1505 1148 1011 0907 Blood Gas Puncture Site Art Line Art Line Art Line Art Line O2 [...] - 26.0 MMOL/L) 41.2 *H 39.6 *H 37.2 *H 39.0 *H ABG Total CO2 43.4 41.6 39.2 41.2 ABG Base Excess (-4.0 - 4.0 MMOL/L) 15.8 H 14.4 H 11.8 H 13.4 H ABG Hematocrit (33.0 - 45.0 %) 25 L 24 L 24 L 26 L ABG Hemoglobin (11.0 - 15.0 G/DL) 8.5 L 8.2 L 8.2 L 9.0 L Sodium (134 - 147 MEQ/L) 146 145 146 145 Potassium (3.4 - 5.0 MEQ/L) 3.7 3.2 L 3.3 L 3.4 Chloride (100 - 108 MEQ/L) 97 L 98 L 99 L 99 L Ionized Calcium (1.12 - 1.32 MMOL/L) 1.36 H 1.35 H 1.32 1.37 H Lactic Acid (0.9 - 1.7 mmol/l) 0.7 L 0.6 L 0.6 L 0.7 L O2 Delivery Device HFJV BiPAP BiPAP HFNC FiO2 (%) 45 45 75 12/25 12/24 12/24 0350 2000 1809 Blood Gas Puncture Site Art [...] - 26.0 MMOL/L) 41.4 *H 34.4 *H 38.3 *H ABG Total CO2 43.5 36.3 40.3 [...] Calcium (1.12 - 1.32 MMOL/L) 1.38 H 1.29 1.41 H Lactic Acid (0.9 - [...] (Auto) (14.0 - 32.0 %) 4.6 L [place] % (Auto) (4.8 - 9.0 %) 13.8 H Eos % (Auto) (0.3 - 3.7 %) 1.7 Baso % (Auto) (0.0 - 2.0 %) 0.3 Neut # (Auto) (2.0 - 7.6 x10 3/uL) 5.04 Lymph # (Auto) (1.0 - 3.8 x10 3/uL) 0.30 L [place] # (Auto) (0.1 - 0.8 x10 3/uL) 0.90 H Eos # (Auto) (0.0 - 0.2 x10 3/uL) 0.11 Baso # (Auto) (0.0 - 0.2 x10 3/uL) 0.02 Abs Immat Gran (auto) (0.00 - 0.03 x10 3/uL) 0.14 H Add Manual Diff NO Immature Gran % (0.0 - 2.0 %) 2.2 H Nucleated RBC % (0 - 0 %) 2.2 H Nucleated RBCs # (Man) (0.0 - 0.1 x10 3/uL) 0.14 H Laboratory Tests 12/25/21 1500:[Embedded Image Not Available] 12/25/21 1150:[Embedded Image Not Available] 12/25/21 0358:[Embedded Image Not Available] 12/24/21 2000:[Embedded Image Not Available] Radiology dataRecent Impressions:RADIOLOGY - XR CHEST 1 V 12/25 0701 Report Impression - Status: SIGNED Entered: 12/25/2021 0751 IMPRESSION: No significant change.Impression By: [email or web address] - Hardik Montanez M.D. Free Text Obj NotesFree Text Obj Notes:General appearance: elderly female in no acute distress, interactiveHEENT: atraumatic, normocephalic, moist mucosal membranesNeck: full range of motion, supple/no meningismusCardiovascular: S1S2 regular rate and rhythm, a-pacedRespiratory: symmetric expansion, no acute respiratory distressAbdomen: soft, obese, non-tender, no distention, no guardingGenitourinary: [place] with clear urineExtremities: pedal pulses palpable, moves all, no clubbing, no cyanosis, LE edemaMusculoskeletal: normal inspection, no muscle spasmNeuro/[employer]: Alert and oriented, intermittently delirious, CNII-XII grossly intact, no motor deficitsSkin: dry, intact and clean surgery dressing Treatment Prophylaxis Treatment ProphylaxisDrain(s)/tube(s): Drain(s)/tube(s): chest (x3) Diagnosis, Assessment PlanProblem list/A P: 1. S/P MVR (mitral valve replacement) 2. S/P CABG x 1 3. Postoperative pulmonary dysfunction after cardiac surgery 4. Severe mitral regurgitation 5. CAD (coronary artery disease) 6. CKD (chronic kidney disease) 7. Immunosuppressed status 8. RONA on CPAP 9. Chronic a-fib 10. Crohn disease Free text A P:76-year-old morbidly obese female with history of HTN, HL, IDDM, smoking, RONA onCPAP and home O2 as needed, macular degeneration, Crohn's disease on immunosuppressant medications, and chronic Afib s/p ablation and PPM (on Xarelto), who was admitted recently with heart failure symptoms. Patient underwent elective cardiac cath that showed severe multivessel coronary artery disease notsuitable for percutaneous intervention. 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 She went for surgical revascularization today and preop JORDEN revealed severe mitral regurgitation. After discussing new findings with family, patient underwent MVR (31 Magna valve), CABG x 1 (ROBERTS-LAD), ILAA and pericardectomy on 12/19/2021. Has EF of 45%. Crystalloid 1 L, urine output 700, Cell Saver 700. She is a-paced at baseline. Surgery went well and patient was transferred to CVICU postop in a stable surgical condition. She is currentlyintubated on 2 mics of epinephrine, 2 mics of Levophed and insulin drip. CI 3.0,SvO2 in 60%s, CVP 15 and PAP in 60s. Remains neuro intact, multimodal pain control, avoid opiatesPatient needs BiPAP for underlying RONA. Does use home CPAP. BiPAP 18/10. FiO2is down to 50%. During the day she remained on high flow nasal cannula 15 L.Stop TPN today. Has been taking meals during the day.Bowel movement yesterday.Chest x-ray shows still bilateral pulmonary infiltrates. We will ultrasound theright side of the chest tomorrow. Continue aggressive bronchodilators and Mucomyst. Chest PT.Continue beta-delma and amiodarone. Blood pressure has remained stable.Patient is having contraction alkalosis. We will give her Diamox 250 twice daily. Did receive 1 dose of Lasix and metolazone today. We will hold her further dose of Lasix today and redose her tomorrow. Renal following.Patient is on insulin drip for control of her sugars.Patient still has [place] for accurate ins and outs Total critical care time 45 minutes at 1756 RPT #:[id number] OF REPORTPRProgress [id number]:24:00G.[id number] e for patient sufpSJXGJYGLCYEZZJ9916-24-89P97:56:56 HC ACL 2021-12-25 15:58:00 [id number] wtF+Ce5LTPqt 4wYfAKsX/W5XRnIZpJ+mICi02918-51-42M53:58:[address] [facility] ([facility])Hospitalist Progress NoteREPORT#:[id number] REPORT STATUS: SignedDATE:12/25/21 TIME: 1558 PATIENT: KIAH GILES UNIT #: [id number]#: [id number] [address] [birth year] AGE: 76 SEX: F ATTEND: Jeffry More AUTHOR: Meryl Rosa MD * ALL edits or amendments must be made on the electronic/computer document * SubjectiveChief complaint:she is doing well with PT. no sob acute respiratory failure --post CABGHPI: 76 years old female with PMH of macular degeneration, obesity, obstructive sleepapnea (CPAP at home), former smoker, hypertension, hyperlipidemia, diabetes, Crohn's disease, chronic atrial fibrillation status post 3 ablations in the past(on Xarelto), pacemaker placement is admitted to the hospital post cardiac cath . she need CABG . she had sob for years . sob got worse . she was admitted to the hospital in [place] . she had cath 3 weeks ago . she was reffered to here for stents placement . she had cath yesterday . it show multiple vessels CAD . she is recommend CABG . she still feel sob . no cp no nausea no vomiting no fever no abdominal pain no dizziness . Review of SystemsConstitutional:Reports: generalized weakness. Denies: fatigue, lethargy. Respiratory:Denies: SOB, wheezing. Cardiovascular:Reports: edema. Denies: orthopnea, palpitations. GI:Denies: nausea, vomiting. Neuro:Denies: dizziness. Objective GeneralVS/I O:Vital Signs: Date Time Temp Pulse Resp B/P B/P Pulse O2 O2 Flow FiO2 Mean Ox Delivery Rate 12/25 1212 73 100 45 12/25 1003 72 100 45 12/25 0952 36.1 72 25 104/39 57 100 12/25 0946 123/51 74 10/ 0946 36.1 72 25 109/41 60 100 12/25 0901 129/75 90 12/25 0901 36.0 71 22 132/45 73 99 12/25 0900 36.0 72 20 131/45 72 100 12/25 0822 73 24 100 50 70 10/ [...] 166/73 104 99 12/24 2201 111/56 80 10/12 2201 36.6 73 99 12/24 2199 36.6 73 26 100 12/25 2115 140/65 93 12/25 2115 36.5 69 28 99 12/24 2100 137/61 88 12/24 2100 36.7 73 99 12/25 1999 36.7 12/25 1999 BiPAP 45 12/25 1999 111/53 76 12/25 1999 36.7 70 27 134/46 68 100 12/24 1957 71 99 45 12/24 1957 99 BiPAP 45 12/24 1932 113/49 70 12/24 1932 36.6 69 23 142/45 69 100 12/24 190 140/65 93 12/24 1901 36.6 72 26 [...] scale Measurement Method PATIENT WEIGHT: Weight (lb): 267Weight (oz): 13.79Weight (kg): 121.500 Medications:Active Meds + DC'd Last 24 HrsPotassium Phos/Sodium Phos (NEUTRA-PHOS) 1 UDPKT TID PO Acetazolamide (DIAMOX) 250 MG ONCE ONE IV (DC) Sterile Water (WATER FOR INJECTION) 5 ML ASDIR PRN IV Albumin Human (ALBUMINAR 25%) 100 ML ONCE ONE IV (DC) Potassium Chloride (POTASSIUM CHLORIDE 20MEQ TAB.ER) 40 MEQ ONCE ONE PO (DC) Epinephrine (ADRENALIN CHLORIDE) 4 MG ASDIR IV (DC) Dextrose/Water (DEXTROSE 5% WATER) 246 MLPantoprazole (PROTONIX) 40 MG DAILY PO Acetazolamide (DIAMOX) 250 MG ONCE ONE IV (DC) Sterile Water (WATER FOR INJECTION) 5 ML ASDIR PRN IV (DC) Potassium Phosphate (POTASSIUM PHOSPHATE) 30 MM ONCE ONE IV (DC) Sodium Chloride (SODIUM CHLORIDE 0.9%) 250 MLFurosemide (LASIX 40 mg/4 mL INJECTION) 40 MG Q8H IV Dexmedetomidine/Sodium Chloride (PRECEDEX 1000MCG/NS 250ML) 250 ML ASDIR IV Amino Acids/Electrolytes/Dextrose (TPN ADULT- CENTRAL 2000ML) 1,080 ML 2200 IV Potassium Chloride (POTASSIUM CHLORIDE 20MEQ TAB.ER) 40 MEQ ONCE ONE PO (DC) Bisacodyl (DULCOLAX) 10 MG DAILY PRN PRN RECTAL Sterile Water (WATER FOR INJECTION) 5 ML ASDIR PRN IV (DC) Lactulose (LACTULOSE) 20 GM DAILY PRN PRN PO Magnesium Hydroxide (MILK OF MAGNESIA) 30 ML DAILY PRN PRN PO Aspirin (ASPIRIN) 81 MG DAILY PO Clopidogrel Bisulfate (Plavix) 75 MG DAILY PO Cyanocobalamin (Vitamin B-12 500 mcg tab) 500 MCG DAILY PO Ferrous Sulfate (FERROUS SULFATE) 325 MG DAILY PO Metolazone (metOLazone) 5 MG DAILY PO Polyethylene Glycol (MIRALAX) 17 GM DAILY PO Amino Acids/Electrolytes/Dextrose (TPN ADULT- CENTRAL 1000ML) 960 ML 2200 IV (DC) Fat [...] (CKD) Sodium Chloride (SODIUM CHLORIDE 0.9%) 99 MLFurosemide (LASIX 40 mg/4 mL INJECTION) 60 MG Q8H IV (DC) Acetylcysteine (MUCOMYST FOR RT) 200 MG RTQ6H NEB Albuterol/Ipratropium (DUONEB) 3 ML RTQ6H NEB Bisacodyl (DULCOLAX) 10 MG ONCE PRN RECTAL Dextrose/Water (Dextrose 10% 1,000 mL) 1,000 ML ASDIR PRN IV (DC) Miscellaneous Information (TPN (Central) PHARMACY TO DOSE) 1 EACH ASDIR IV (DC) Dopamine HCl/Dextrose (DOPamine 400MG/D5W 250ML) 250 ML ASDIR IV Milrinone Lactate/Dextrose (MILRINONE 20MG/D5W 100ML) 100 ML ASDIR IV (CKD) Vasopressin (VASOSTRICT 20 Unit/NS 100ML) 100 ML ASDIR IV (CKD) Acetaminophen (TYLENOL) 650 MG Q4H PRN PRN RECTAL Calcium Chloride (CALCIUM CHLORIDE) 1 GM ASDIR PRN IV Dextrose/Water (DEXTROSE 10% IN WATER) 125 ML ASDIR PRN IV (CKD) Dextrose/Water (DEXTROSE 10% IN WATER) 250 ML ASDIR PRN IV (CKD) Epinephrine (ADRENALIN CHLORIDE) 5 MG ASDIR IV (DC) Dextrose/Water (DEXTROSE 5% WATER) 245 MLGlucagon (GLUCAGON) 1 MG ASDIR PRN IM Magnesium Sulfate (MAGNESIUM SULFATE 4GM/SWFI 100ML) 100 ML ASDIR PRN IV Magnesium Sulfate (MAGNESIUM SULFATE 2GM/SWFI 50ML) 50 ML ASDIR PRN IV Magnesium Sulfate/Dextrose (MAGNESIUM SULFATE 1GM/D5W 100ML) 100 ML ASDIR PRN IV Nitroglycerin/Dextrose (NITROGLYCERIN 50,000MCG/D5W 250ML) 250 ML ASDIR IV Norepinephrine Bitartrate (NOREPINEPHRINE 8 MG/NS 250 ML) 250 ML TITRATE IV Potassium Chloride (KCL 20MEQ/SWFI 100ML) 100 ML ASDIR PRN IV Sodium Bicarbonate (SODIUM BICARBONATE) 50 MEQ ASDIR PRN IV Ondansetron HCl (ZOFRAN) 4 MG Q6H PRN PRN IV Vancomycin HCl (VANCOMYCIN HCL) 1,750 MG PREOP ONCALL IV (DC) Sodium Chloride (NS 0.9%) 500 ML Physical ExamGeneral appearance: alert, awake, orientedHead/Eyes: atraumatic, normal conjunctiva/sclera, normal eyelids/periorb., normocephalicENT: intubatedNeck: full range of motion, non-tender, no JVDCardiovascular: normal heart sounds, regular rate rhythmRespiratory: dyspneic, hypercapnia, hypoxia, on oxygen, clear to auscultationAbdomen: non-tender, normal bowel sounds, soft, no distentionExtremities: edema, moves all, no calf tendernessNeuro/[employer]: alert, 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Skin: dry, intact ResultsFindings/Data:Laboratory Tests 12/25 12/25 12/25 12/25 1505 1148 1011 0907 Blood Gas Puncture Site Art Line Art Line Art Line Art Line O2 [...] - 26.0 MMOL/L) 41.2 *H 39.6 *H 37.2 *H 39.0 *H ABG Total CO2 43.4 41.6 39.2 41.2 ABG Base Excess (-4.0 - 4.0 MMOL/L) 15.8 H 14.4 H 11.8 H 13.4 H ABG Hematocrit (33.0 - 45.0 %) 25 L 24 L 24 L 26 L ABG Hemoglobin (11.0 - 15.0 G/DL) 8.5 L 8.2 L 8.2 L 9.0 L Sodium (134 - 147 MEQ/L) 146 145 146 145 Potassium (3.4 - 5.0 MEQ/L) 3.7 3.2 L 3.3 L 3.4 Chloride (100 - 108 MEQ/L) 97 L 98 L 99 L 99 L Ionized Calcium (1.12 - 1.32 MMOL/L) 1.36 H 1.35 H 1.32 1.37 H Lactic Acid (0.9 [...] - 26.0 MMOL/L) 41.4 *H 34.4 *H 38.3 *H ABG Total CO2 43.5 36.3 40.3 [...] Calcium (1.12 - 1.32 MMOL/L) 1.38 H 1.29 1.41 H Lactic Acid (0.9 - 1.7 mmol/l) 0.6 L 0.6 L 0.7 L Temperature (F) 98 98.1 97.9 O2 Delivery Device HFNC BiPAP BiPAP Vent Mode BiLevel Vent Rate (/MIN) 26 18 FiO2 (%) 75 50 50 PEEP (cmH2O) 10 10 Pressure Support (cmH2O) 18 Laboratory Tests 12/25 12/25 12/25 12/25 12/25 1507 1505 1150 1148 1011Chemistry Sodium (134 - 147 mEq/L) 146 Potassium (3.4 - 5.0 mEq/L) 3.4 Chloride (100 - 108 mEq/L) 100 Carbon Dioxide (21 - 33 mEq/l) 40 H Anion Gap (0 - 20) 10 BUN (7 - 18 mg/dL) 61 H Creatinine (0.6 - 1.3 mg/dL) 0.9 POC Creatinine (0.6 - 1.0 mg/dL) 1.2 H 1.1 H 0.9 Glomerular Filtr Rate (70 - [...] 12/25 12/25 12/25 0907 0745 0358 0353 0235Chemistry Sodium (134 - 147 mEq/L) 145 Potassium [...] L Total Alk Phosphatase (20 - 125 73IUnit/L) Total Protein (6.4 - 8.2 g/dL) 6.8 [...] - 10.5 mg/dL) 9.9 12/24 12/24 1809 1654 Chemistry POC Creatinine (0.6 - 1.0 [...] (Auto) (14.0 - 32.0 %) 4.6 L [place] % (Auto) (4.8 - 9.0 %) 13.8 H Eos % (Auto) (0.3 - 3.7 %) 1.7 Baso % (Auto) (0.0 - 2.0 %) 0.3 Neut # (Auto) (2.0 - 7.6 x10 3/uL) 5.04 Lymph # (Auto) (1.0 - 3.8 x10 3/uL) 0.30 L [place] # (Auto) (0.1 - 0.8 x10 3/uL) 0.90 H Eos # (Auto) (0.0 - 0.2 x10 3/uL) 0.11 Baso # (Auto) (0.0 - 0.2 x10 3/uL) 0.02 Abs Immat Gran (auto) (0.00 - 0.03 x10 3/uL) 0.14 H Add Manual Diff NO Immature Gran % (0.0 - 2.0 %) 2.2 H Nucleated RBC % (0 - 0 %) 2.2 H Nucleated RBCs # (Man) (0.0 - 0.1 x10 3/uL) 0.14 H Treatment Prophylaxis Treatment ProphylaxisDrain(s)/tube(s): Drain(s)/tube(s): chest (x3) Diagnosis, Assessment PlanConsultants: cardiology, cardiovascular surgery Free Text DxA P NotesFree text DxA P notes: 76 years old female with PMH of macular degeneration, obesity, obstructive sleepapnea (CPAP at home), former smoker, hypertension, hyperlipidemia, diabetes, Crohn's disease, chronic atrial fibrillation status post 3 ablations in the past(on Xarelto), pacemaker placement CAD -- multiple vesssels HTNDM HLDCrohn's diseasechronic atrial fibrillation status post 3 ablationsmacular degenerationobesityobstructive sleep apneaacute respiratory failure --post surgery severe mitral valve [...] MVR (31 Magna valve), CABG x 1 (ROBERTS-LAD), ILAA and pericardectomy -- she remain intubated on the vent -- chest tube are in place -on levophed and epinephrine drip -- monitor in CCU 12/20- she was extubated --on bipap now -- NPO --off Levophed/epinephrine, continue vasopressin, inotropes with milrinone, -- chest tube remain in place -- she is stable post surgery 12/21-- she is on high flow O2 -- edema --lasix --chest tube in place --- she is hemodynamic stable -- continue monitor in CCU 12/22- she remain on high O2 CXR show worsening pulmonary venous vascular congestion. --lasix iv tid -- chest tube are [...] all image and consultants notes Current Medications Sig/Frankie Start time Last Medication Dose Route Stop Time Status Admin Amlodipine Besylate 5 MG DAILY 12/18 899 AC PO 01/17 859 Furosemide 10 MG DAILY 12/18 899 AC PO 01/17 08 Lisinopril 40 MG DAILY 12/18 899 AC PO 01/16 1214 Losartan Potassium 100 MG DAILY 12/18 899 AC PO 01/17 859 Metolazone 10 MG DAILY 12/18 0800 AC PO 01/17 0859 Pantoprazole 40 MG DAILY@0600 12/18 599 AC PO 01/17 0559 Cefazolin Sodium 3 GM PREOP ONCALL 12/18 499 CKD Sodium Chloride 250 ML IV 12/18 2358 [...] IV 12/18 1158 Sodium Chloride 1,000 ML .[id number] 12/17 1200 AC 12/17 IV 12/17 1839 1404 Sodium Chloride 500 ML ASDIR PRN 12/17 1200 AC IV 12/18 1158 Adenosine 0 .STK-MED ONE 12/17 1052 DC IV Sodium Chloride 50 ML .STK-MED ONE 12/17 1052 DC IV Iopamidol 100 ML .STK-MED ONE 12/17 1034 DC 12/17 IV 12/17 1035 1034 Fentanyl Citrate 0 .STK-MED ONE 12/17 1019 DC 12/17 .ROUTE 1030 Midazolam HCl 0 .STK-MED ONE 12/17 1019 DC 12/17 .ROUTE 1030 Heparin Sodium/ 500 ML .STK-MED ONE 12/17 0949 DC 12/17 Sodium Chloride IV 1030 Heparin Sodium 0 .STK-MED ONE 12/18 939 DC 12/17 .ROUTE 1030 Heparin Sodium/ 1,000 ML .STK-MED ONE 12/18 939 DC 12/17 Sodium Chloride IV 1030 Heparin Sodium/ 500 ML .STK-MED ONE 12/18 939 DC 12/17 Sodium Chloride IV 1030 Lidocaine HCl 0 .STK-MED ONE 12/18 939 DC 12/17 .ROUTE 1030 Nitroglycerin/ 250 ML .STK-MED ONE 12/18 939 DC 12/17 Dextrose IV 1030 Verapamil HCl 0 .STK-MED ONE 12/18 939 DC 12/17 IV 1030 Home Medications:RIVAROXABAN (XARELTO) 20 MG PO DAILY amLODIPine (NORVASC) [...] DAILY INSULIN DETEMIR (LEVEMIR FlexTouch (15mL)) 50 UNITS SUBQ BID INSULIN LISPRO (HumaLOG CARTRIDGE (15mL)) 0 UNITS SUBQ TID LIRAGLUTIDE (VICTOZA (6mL)) 1.8 MG SUBQ DAILY metFORMIN (GLUCOPHAGE) 1,000 MG PO BID ADALIMUMAB + SUPPLIES (HUMIRA PREFILLED PEN) 40 MG SUBQ Q14D azaTHIOprine (IMURAN) 50 MG PO DAILY Quality: [facility] Current MedicationsCurrent medication review:Home Medications:RIVAROXABAN (XARELTO) 20 MG PO DAILY amLODIPine (NORVASC) [...] DAILY INSULIN DETEMIR (LEVEMIR FlexTouch (15mL)) 50 UNITS SUBQ BID INSULIN LISPRO (HumaLOG CARTRIDGE (15mL)) 0 UNITS SUBQ TID LIRAGLUTIDE (VICTOZA (6mL)) 1.8 MG SUBQ DAILY metFORMIN (GLUCOPHAGE) 1,000 MG PO BID ADALIMUMAB + SUPPLIES (HUMIRA PREFILLED PEN) 40 MG SUBQ Q14D azaTHIOprine (IMURAN) 50 MG PO DAILY I attest that the foregoing medication list in the medical record is true, accurate, and complete to the best of my knowledge. at 1602 RPT #:[id number] OF REPORTPRProgress [id number]:58:00G.[id number] e for patient xmliWIMSSLJOYFZLCG6084-96-60A79:03:08 HC ACL 2021-12-25 14:17:00 [id number]+EPIKG52ICflGCrk l3dWJ1WddueY aOyxF4N+Ejgn9FTWcso23ci80559-77-46T59:17:[address] [facility] ([facility])Cardiology Progress NoteREPORT#:[id number] REPORT STATUS: SignedDATE:12/25/21 TIME: 1417 PATIENT: KIAH GILES UNIT #: [id number]#: [id number] [address] AGE: 76 SEX: F ATTEND: Jeffry More MDADM AUTHOR: Isabella Clemens * ALL edits or amendments must be made on the electronic/computer document * SubjectiveComments:Awake, alert, on NC, generalized edema Objective GeneralVS/I O:24 hour I O ending at 0700: 12/25 [...] O2 Flow FiO2 Mean Ox Delivery Rate 12/25 1212 73 100 45 12/25 1003 72 100 45 12/26 951 36.1 72 25 104/39 57 100 12/25 0846 123/51 74 12/25 0846 36.1 72 25 109/41 60 100 12/25 0801 129/75 90 12/25 0801 36.0 71 22 132/45 73 99 10/13 0900 36.0 72 20 131/45 72 100 10/ 0822 73 24 100 50 70 10/13 0822 100 High flow 50 70 nasal cannula / 0801 141/66 85 10/ 0801 36.0 72 24 150/46 78 100 10/ 0800 BiPAP 45 10/ 0800 36.0 72 25 143/45 77 100 / 0700 36.1 72 22 166/49 85 100 / 0645 153/67 97 10/ 0642 75 23 100 10/ 0600 75 148/60 84 / 0500 36.3 74 22 98 / 0408 72 20 98 50 78 10/ 0401 156/63 90 / 0401 36.2 71 99 / 0400 36.2 73 100 / 0304 36.3 72 99 / 0301 36.3 72 20 99 / 0300 36.3 72 99 12/25 0224 36.4 72 98 / 0204 119/55 77 / 0204 36.6 74 24 144/60 87 100 / 0202 36.6 72 25 103/46 61 100 / 0201 36.6 72 24 103/45 61 100 / 0200 36.6 72 22 101/45 60 100 / 0101 94/44 64 / 0101 36.5 70 25 108/45 61 100 / 0100 36.5 69 26 108/45 62 100 / 0057 36.5 71 26 112/46 63 100 / 0004 151/69 99 12/25 0004 36.4 71 23 98 12/25 0000 36.4 72 25 100 12/24 2300 122/56 81 12/24 2300 36.6 72 166/73 104 99 12/24 2201 111/56 80 12/24 2201 36.6 73 99 12/24 2200 36.6 73 26 100 12/25 2115 140/65 93 12/25 2115 36.5 69 28 99 12/24 2100 137/61 88 12/24 2100 36.7 73 99 12/25 1999 36.7 101999 BiPAP 45 12/25 1999 111/53 76 12/25 1999 36.7 70 27 134/46 68 100 12/24 1957 71 99 45 12/24 1957 99 BiPAP 45 12/24 1932 113/49 70 12/24 1932 36.6 69 23 142/45 69 100 12/24 1901 140/65 93 12/24 1901 36.6 72 26 157/48 82 100 12/24 1900 36.6 73 26 158/47 83 100 12/24 1800 36.6 72 29 174/58 96 100 12/24 1700 36.7 69 14 126/40 62 100 12/24 1600 36.7 75 25 170/55 90 99 12/24 1500 36.6 71 37 163/48 78 87 PATIENT WEIGHT: Weight (lb): 267Weight (oz): 13.79Weight (kg): 121.500 Medications:Active Meds + DC'd Last 24 HrsPotassium Phos/Sodium Phos (NEUTRA-PHOS) 1 UDPKT TID PO Albumin Human (ALBUMINAR 25%) 100 ML ONCE ONE IV (DC) Potassium Chloride (POTASSIUM CHLORIDE 20MEQ TAB.ER) 40 MEQ ONCE ONE PO (DC) Epinephrine (ADRENALIN CHLORIDE) 4 MG ASDIR IV (DC) Dextrose/Water (DEXTROSE 5% WATER) 246 MLPantoprazole (PROTONIX) 40 MG DAILY PO Acetazolamide (DIAMOX) 250 MG ONCE ONE IV (DC) Sterile Water (WATER FOR INJECTION) 5 ML ASDIR PRN IV Potassium Phosphate (POTASSIUM PHOSPHATE) 30 MM ONCE ONE IV (DC) Sodium Chloride (SODIUM CHLORIDE 0.9%) 250 MLFurosemide (LASIX 40 mg/4 mL INJECTION) 40 MG Q8H IV Dexmedetomidine/Sodium Chloride (PRECEDEX 1000MCG/NS 250ML) 250 ML ASDIR IV Amino Acids/Electrolytes/Dextrose (TPN ADULT- CENTRAL 2000ML) 1,080 ML 2200 IV Potassium Chloride (POTASSIUM CHLORIDE 20MEQ TAB.ER) 40 MEQ ONCE ONE PO (DC) Bisacodyl (DULCOLAX) 10 MG DAILY PRN PRN RECTAL Acetazolamide (DIAMOX) 250 MG ONCE ONE IV (DC) Sterile Water (WATER FOR INJECTION) 5 ML ASDIR PRN IV (DC) Lactulose (LACTULOSE) 20 GM DAILY PRN PRN PO Magnesium Hydroxide (MILK OF MAGNESIA) 30 ML DAILY PRN PRN PO Aspirin (ASPIRIN) 81 MG DAILY PO Clopidogrel Bisulfate (Plavix) 75 MG DAILY PO Cyanocobalamin (Vitamin B-12 500 mcg tab) 500 MCG DAILY PO Ferrous Sulfate (FERROUS SULFATE) 325 MG DAILY PO Metolazone (metOLazone) 5 MG DAILY PO Polyethylene Glycol (MIRALAX) 17 GM DAILY PO Amino Acids/Electrolytes/Dextrose (TPN ADULT- CENTRAL 1000ML) 960 ML 2200 IV (DC) Fat [...] (CKD) Sodium Chloride (SODIUM CHLORIDE 0.9%) 99 MLFurosemide (LASIX 40 mg/4 mL INJECTION) 60 MG Q8H IV (DC) Acetylcysteine (MUCOMYST FOR RT) 200 MG RTQ6H NEB Albuterol/Ipratropium (DUONEB) 3 ML RTQ6H NEB Bisacodyl (DULCOLAX) 10 MG ONCE PRN RECTAL Dextrose/Water (Dextrose 10% 1,000 mL) 1,000 ML ASDIR PRN IV (DC) Miscellaneous Information (TPN (Central) PHARMACY TO DOSE) 1 EACH ASDIR IV (DC) Dopamine HCl/Dextrose (DOPamine 400MG/D5W 250ML) 250 ML ASDIR IV Milrinone Lactate/Dextrose (MILRINONE 20MG/D5W 100ML) 100 ML ASDIR IV (CKD) Vasopressin (VASOSTRICT 20 Unit/NS 100ML) 100 ML ASDIR IV (CKD) Acetaminophen (TYLENOL) 650 MG Q4H PRN PRN RECTAL Calcium Chloride (CALCIUM CHLORIDE) 1 GM ASDIR PRN IV Dextrose/Water (DEXTROSE 10% IN WATER) 125 ML ASDIR PRN IV (CKD) Dextrose/Water (DEXTROSE 10% IN WATER) 250 ML ASDIR PRN IV (CKD) Epinephrine (ADRENALIN CHLORIDE) 5 MG ASDIR IV (DC) Dextrose/Water (DEXTROSE 5% WATER) 245 MLGlucagon (GLUCAGON) 1 MG ASDIR PRN IM Magnesium Sulfate (MAGNESIUM SULFATE 4GM/SWFI 100ML) 100 ML ASDIR PRN IV Magnesium Sulfate (MAGNESIUM SULFATE 2GM/SWFI 50ML) 50 ML ASDIR PRN IV Magnesium Sulfate/Dextrose (MAGNESIUM SULFATE 1GM/D5W 100ML) 100 ML ASDIR PRN IV Nitroglycerin/Dextrose (NITROGLYCERIN 50,000MCG/D5W 250ML) 250 ML ASDIR IV Norepinephrine Bitartrate (NOREPINEPHRINE 8 MG/NS 250 ML) 250 ML TITRATE IV Potassium Chloride (KCL 20MEQ/SWFI 100ML) 100 ML ASDIR PRN IV Sodium Bicarbonate (SODIUM BICARBONATE) 50 MEQ ASDIR PRN IV Ondansetron HCl (ZOFRAN) 4 MG Q6H PRN PRN IV Vancomycin HCl (VANCOMYCIN HCL) 1,750 MG PREOP ONCALL IV (DC) Sodium Chloride (NS 0.9%) 500 ML Status post:CABG, MVR, and ILAA Physical ExamGeneral appearance: obese, alert, awake, no acute distress, pleasant, conversationalENT: moist mucosal membranesNeck: no JVDCardiovascular: CV assessment: regular rate and rhythmRespiratory: decreased breath sounds, on oxygenAbdomen: obeseGenitourinary: no flank pain, no urinary catheterUpper extremity: UE assessment: normal temperature, no edemaLower extremity: LE assessment: edemaNeuro/[employer]: alert, 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Skin: dry, intactPsychiatry: normal affect, normal mood ResultsFindings/Data:Laboratory Tests 12/25 12/25 12/25 12/25 1148 1011 0907 0353 Blood Gas Puncture Site Art Line Art Line Art Line Art Line O2 [...] - 26.0 MMOL/L) 39.6 *H 37.2 *H 39.0 *H 41.4 *H ABG Total CO2 41.6 39.2 41.2 43.5 ABG Base Excess (-4.0 - 4.0 MMOL/L) 14.4 H 11.8 H 13.4 H 16.4 H ABG Hematocrit (33.0 - 45.0 %) 24 L 24 L 26 L 25 L ABG Hemoglobin (11.0 - 15.0 G/DL) 8.2 L 8.2 L 9.0 L 8.5 L Martin Test N/A Sodium (134 - 147 MEQ/L) 145 146 145 145 Potassium (3.4 - 5.0 MEQ/L) 3.2 L 3.3 L 3.4 3.5 Chloride (100 - 108 MEQ/L) 98 L 99 L 99 L 97 L Ionized Calcium (1.12 - 1.32 MMOL/L) 1.35 H 1.32 1.37 H 1.38 H Lactic Acid (0.9 - 1.7 mmol/l) 0.6 L 0.6 L 0.7 L 0.6 L Temperature (F) 98 O2 Delivery Device BiPAP BiPAP HFNC HFNC FiO2 (%) 45 45 75 75 12/24 180 Blood Gas Puncture Site Art Line [...] 12/25 12/25 12/25 1150 1148 1011 0907 0745Chemistry Sodium (134 - 147 mEq/L) 146 Potassium [...] 12/25 12/25 12/24 0358 0353 0235 0009 2213Chemistry Sodium (134 - 147 mEq/L) 145 Potassium [...] L Total Alk Phosphatase (20 - 125 73IUnit/L) Total Protein (6.4 - 8.2 g/dL) 6.8 Albumin (3.4 - 5.0 g/dL) 3.90 12/24 180 1809 1654 Chemistry Sodium (134 - 147 [...] (Auto) (14.0 - 32.0 %) 4.6 L [place] % (Auto) (4.8 - 9.0 %) 13.8 H Eos % (Auto) (0.3 - 3.7 %) 1.7 Baso % (Auto) (0.0 - 2.0 %) 0.3 Neut # (Auto) (2.0 - 7.6 x10 3/uL) 5.04 Lymph # (Auto) (1.0 - 3.8 x10 3/uL) 0.30 L [place] # (Auto) (0.1 - 0.8 x10 3/uL) 0.90 H Eos # (Auto) (0.0 - 0.2 x10 3/uL) 0.11 Baso # (Auto) (0.0 - 0.2 x10 3/uL) 0.02 Abs Immat Gran (auto) (0.00 - 0.03 x10 3/uL) 0.14 H Add Manual Diff NO Immature Gran % (0.0 - 2.0 %) 2.2 H Nucleated RBC % (0 - 0 %) 2.2 H Nucleated RBCs # (Man) (0.0 - 0.1 x10 3/uL) 0.14 H Laboratory Tests 12/25 12/25 1150 0358 Chemistry Magnesium (1.80 - 2.40 mg/dL) 2.29 2.25 Radiology data:Recent Impressions:RADIOLOGY - XR CHEST 1 V 12/25 0701 Report Impression - Status: SIGNED Entered: 12/25/2021 8901 IMPRESSION: No significant change.Impression By: Fer Montanez M.D. Telemetry Interpretation:sinus rhythm Diagnosis, Assessment PlanPlan discussed with: patient Free Text DxA P NotesFree Text DxA P Notes:Ms Giles is a 76 y/o Femal w/ PMHx: CAD, HLD, T2DM, RONA (CPAP at home), smoker,Crohn's disease, AF s/p ablation (on Xarelto), s/p PPM and lymphedema. Dr. Ramos is consulted for CAD s/p CABG, MVR. - CAD s/p CABG, MVR, and ILAA. post-op per CTS and critical care On Plavix, aspirin, beta-delma, statin volume management per Nephrology - Chr AF s/p PPM/ablation. Rate controlled, paced rhythm. had ILAA during bypass - HTN. BP stable - HLD. On statins. - Crohn's disease. Per IM. -MARCELLO - resolvingper Nephrology -Resp insufficiency on BIPAP per critical care -Diastolic CHF/volume overload negative fluid balance but patient is still volume overloaded diuretic management per nephrology/CTS - currently on IV lasix 60 mg TID plus Diamox at 1544 at 2254 RPT #:[id number] OF REPORTPRProgress [id number]:17:00G.[id number] e for patient dnbpCLVOQLTJRTLCDC8871-18-46H19:45:25 ACL 2021-12-24 18:35:00 [id number] 80etZq5B2uWb ehUEFjVmx4usvuX11vsm5oeG0247-07-49N30:35:[address] [facility] ([facility])DT Operative NoteREPORT#:[id number] REPORT STATUS: SignedDATE:12/24/21 TIME: 1834 PATIENT: KIAH GILES UNIT #: [id number]#: [id number] [address] AGE: 76 SEX: F ATTEND: Jeffry More AUTHOR: Ricky Goodwin MD * ALL edits or amendments must be made on the electronic/computer document * Operative Report Operative NoteNote:Arterial line The patient was placed in appropriate position for arterial line placement. Thepatient s radial arteries were very small. Right radial artery was attempted unable to thread the guidewire. The left brachial artery was ultrasounded and arterial line catheter was placed. The catheter was attached to the BP monitor and good waveform was shown. The catheter was then sutured in place. Blood loss was minimal. Patient tolerated the procedure well and there were no complications at 1841 RPT #:[id number] OF REPORTOPOperative lpdgvw9118-07-24H74:35:00G.[id number] ble for patient raksFQYGSRHGZCRJPF3242-62-27B95:41:57 [facility] 2021-12-24 16:56:00 [id number]/tLft69sCIC 0IAKo1Y2o3nw Worn8MJAdWg/IgjbyxVU4ooN5193-15-25Y74:56:00 [facility] Progress NoteREPORT#:[id number] REPORT STATUS: SignedDATE:12/24/21 TIME: 165 PATIENT: KIAH GILES UNIT #: [id number]#: [id number] [address] AGE: 76 SEX: F ATTEND: Jeffry More AUTHOR: Ricky Goodwin MD * ALL edits or amendments must be made on the electronic/computer document * SubjectiveChief complaint:CABG/MVRHPI:76-year-old morbidly obese female with history of HTN, HL, IDDM, smoking, RONA onCPAP and home O2 as needed, macular degeneration, Crohn's disease on immunosuppressant medications, and chronic Afib s/p ablation and PPM (on Xarelto), who was admitted recently with heart failure symptoms. Patient underwent elective cardiac cath that showed severe multivessel coronary artery disease notsuitable for percutaneous intervention. 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 She went for surgical revascularization today and preop JORDEN revealed severe mitral regurgitation. After discussing new findings with family, patient underwent MVR (31 Magna valve), CABG x 1 (ROBERTS-LAD), ILAA and pericardectomy on 12/19/2021. Has EF of 45%. Crystalloid 1 L, urine output 700, Cell Saver 700. She is a-paced at baseline. Surgery went well and patient was transferred to CVICU postop in a stable surgical condition. She is currentlyintubated on 2 mics of epinephrine, 2 mics of Levophed and insulin drip. CI 3.0,SvO2 in 60%s, CVP 15 and PAP in 60s. Comments:Interval history- Patient still requiring a lot of oxygenation support, BiPAP and Teleflex.Has underlying RONA is on CPAP at home 13-18 AutoPap as per the family.Bowel movement today Patient diuresed well is -1.8 L yesterday. Objective GeneralVS/I OLast Documented: Result Date Time Pulse Ox 98 [...] scale Measurement Method PATIENT WEIGHT: Weight (lb): 266Weight (oz): 1.57Weight (kg): 120.700 Medications:Active Meds + DC'd Last 24 HrsPantoprazole (PROTONIX) 40 MG DAILY PO Amino Acids/Electrolytes/Dextrose (TPN ADULT- CENTRAL 2000ML) 1,080 ML 2200 IV Bisacodyl (DULCOLAX) 10 MG DAILY PRN PRN RECTAL Acetazolamide (DIAMOX) 250 MG ONCE ONE IV (DC) Sterile Water (WATER FOR INJECTION) 5 ML ASDIR PRN IV Lactulose (LACTULOSE) 20 GM DAILY PRN PRN PO Magnesium Hydroxide (MILK OF MAGNESIA) 30 ML DAILY PRN PRN PO Aspirin (ASPIRIN) 81 MG DAILY PO Clopidogrel Bisulfate (Plavix) 75 MG DAILY PO Cyanocobalamin (Vitamin B-12 500 mcg tab) 500 MCG DAILY PO Ferrous Sulfate (FERROUS SULFATE) 300 MG DAILY PO (DC) Ferrous Sulfate (FERROUS SULFATE) 325 MG DAILY PO Metolazone (metOLazone) 5 MG DAILY PO Polyethylene Glycol (MIRALAX) 17 GM DAILY PO Potassium Chloride (POTASSIUM CHLORIDE 20MEQ TAB.ER) 20 MEQ ONCE ONE PO (DC) Lansoprazole (PREVACID) 30 MG DAILY@0600 PO (DC) Potassium Chloride (POTASSIUM CHLORIDE 20MEQ TAB.ER) 40 MEQ ONCE ONE PO (DC) Amino Acids/Electrolytes/Dextrose (TPN ADULT- CENTRAL 1000ML) 960 ML 2200 IV Fat Emulsion (FAT EMULSION 20% (INTRALIPID)) 250 ML 2200 IV Atorvastatin Calcium (LIPITOR) 40 MG 2100 PO Docusate Sodium (DOCUSATE SODIUM) 100 MG BID PO Metoprolol Tartrate (LOPRESSOR) 12.5 MG Q12HR PO Senna (SENOKOT) 17.6 MG BEDTIME PO Acetazolamide (DIAMOX) 250 MG ONCE ONE IV (DC) Sterile Water (WATER FOR INJECTION) 5 ML ONCE ONE IV (DC) Amiodarone HCl (CORDARONE) 200 MG TID PO Acetaminophen (TYLENOL) 650 MG Q4H PRN PRN PO Tramadol HCl (ULTRAM) 25 MG Q4H PRN PRN PO Tramadol HCl (ULTRAM) 50 MG Q4H PRN PRN PO Insulin Human Regular (HumuLIN R) 100 UNIT ASDIR IV (CKD) Sodium Chloride (SODIUM CHLORIDE 0.9%) 99 MLGabapentin (NEURONTIN) 200 MG BID 9A 5P FEED-TUBE (DC) Furosemide (LASIX 40 mg/4 mL INJECTION) 60 MG Q8H IV (CKD) Fat Emulsion (FAT EMULSION 20% (INTRALIPID)) 100 ML 2200 IV (DC) Amino Acids/Electrolytes/Dextrose (TPN ADULT- CENTRAL 1000ML) 840 ML 2200 IV (DC) Acetylcysteine (MUCOMYST FOR RT) 200 MG RTQ6H NEB Albuterol/Ipratropium (DUONEB) 3 ML RTQ6H NEB Bisacodyl (DULCOLAX) 10 MG ONCE PRN RECTAL Dextrose/Water (Dextrose 10% 1,000 mL) 1,000 ML ASDIR PRN IV Miscellaneous Information (TPN (Central) PHARMACY TO DOSE) 1 EACH ASDIR IV Dopamine HCl/Dextrose (DOPamine 400MG/D5W 250ML) 250 ML ASDIR IV Milrinone Lactate/Dextrose (MILRINONE 20MG/D5W 100ML) 100 ML ASDIR IV (CKD) Vasopressin (VASOSTRICT 20 Unit/NS 100ML) 100 ML ASDIR IV (CKD) Mupirocin (BACTROBAN 2% 22 GM OINTMENT) 1 APPLIC BID NASAL (DC) Acetaminophen (TYLENOL) 650 MG Q4H PRN PRN RECTAL Calcium Chloride (CALCIUM CHLORIDE) 1 GM ASDIR PRN IV Dextrose/Water (DEXTROSE 10% IN WATER) 125 ML ASDIR PRN IV (CKD) Dextrose/Water (DEXTROSE 10% IN WATER) 250 ML ASDIR PRN IV (CKD) Epinephrine (ADRENALIN CHLORIDE) 5 MG ASDIR IV Dextrose/Water (DEXTROSE 5% WATER) 245 MLGlucagon (GLUCAGON) 1 MG ASDIR PRN IM Magnesium Sulfate (MAGNESIUM SULFATE 4GM/SWFI 100ML) 100 ML ASDIR PRN IV Magnesium Sulfate (MAGNESIUM SULFATE 2GM/SWFI 50ML) 50 ML ASDIR PRN IV Magnesium Sulfate/Dextrose (MAGNESIUM SULFATE 1GM/D5W 100ML) 100 ML ASDIR PRN IV Nitroglycerin/Dextrose (NITROGLYCERIN 50,000MCG/D5W 250ML) 250 ML ASDIR IV Norepinephrine Bitartrate (NOREPINEPHRINE 8 MG/NS 250 ML) 250 ML TITRATE IV Potassium Chloride (KCL 20MEQ/SWFI 100ML) 100 ML ASDIR PRN IV Sodium Bicarbonate (SODIUM BICARBONATE) 50 MEQ ASDIR PRN IV Sodium Chloride (SODIUM CHLORIDE 0.9%) 1,000 ML .Q20H IV (DC) Sodium Chloride (SODIUM CHLORIDE 0.9%) 250 ML Q24H IV (DC) Ondansetron HCl (ZOFRAN) 4 MG Q6H PRN PRN IV Vancomycin HCl (VANCOMYCIN HCL) 1,750 MG PREOP ONCALL IV (CKD) Sodium Chloride (NS 0.9%) 500 ML ResultsFindings/data:Laboratory Tests 12/24 12/24 12/24 12/24 4190 3960 1165 2198 Blood Gas Puncture Site Art Line Art Line Art Line R Radial O2 Saturation (90 - 100 %) 93.5 96.0 95.7 88.7 L ABG pH (7.35 - 7.45) 7.346 L 7.348 L 7.376 7.363 ABG pCO2 (35.0 - 45 mmHg) 63.5 [...] %) 24 L 26 L 26 L 24 L ABG Hemoglobin (11.0 - 15.0 G/DL) 8.1 L 8.7 L 8.9 L 8.3 L Martin Test N/A N/A Positive Sodium (134 - 147 MEQ/L) 145 149 H 149 H 146 Potassium (3.4 - 5.0 MEQ/L) 3.7 3.1 L 3.2 L 3.1 L Chloride (100 - 108 MEQ/L) 100 102 102 102 Ionized Calcium (1.12 - 1.32 MMOL/L) 1.34 H 1.39 H 1.38 H 1.34 H Lactic Acid (0.9 - 1.7 mmol/l) 1.2 0.7 L 0.7 L 0.8 L Temperature (F) 98.2 99 98.1 98.6 O2 Delivery Device BiPAP BiPAP BiPAP HFNC FiO2 (%) 50 60 70 80 Tidal Volume (ml) 18 14 PEEP (cmH2O) 10 8 8 Pressure Support (cmH2O) 14 12/230 1811 Blood Gas Puncture Site Central Line Central [...] Calcium (1.12 - 1.32 MMOL/L) 1.38 H 1.42 H Lactic Acid (0.9 - 1.7 mmol/l) 0.8 L 0.7 L O2 Delivery Device HFNC HFNC FiO2 (%) 70 70 Tidal Volume (ml) 60 Laboratory Tests 12/24 12/24 12/24 12/24 12/24 1424 1415 1415 1139 0913Chemistry Sodium (134 - 147 mEq/L) 145 Potassium [...] 12/24 12/24 12/24 12/24 12/23 0913 0653 0538 0320 2236Chemistry Sodium (134 - 147 mEq/L) 148 H [...] (Auto) (14.0 - 32.0 %) 2.7 L [place] % (Auto) (4.8 - 9.0 %) 11.4 H Eos % (Auto) (0.3 - 3.7 %) 1.0 Baso % (Auto) (0.0 - 2.0 %) 0.2 Neut # (Auto) (2.0 - 7.6 x10 3/uL) 5.21 Lymph # (Auto) (1.0 - 3.8 x10 3/uL) 0.17 L [place] # (Auto) (0.1 - 0.8 x10 3/uL) 0.72 Eos # (Auto) (0.0 - 0.2 x10 3/uL) 0.06 Baso # (Auto) (0.0 - 0.2 x10 3/uL) 0.01 Abs Immat Gran (auto) (0.00 - 0.03 x10 3/uL) 0.12 H Add Manual Diff NO Immature Gran % (0.0 - 2.0 %) 1.9 Nucleated RBC % (0 - 0 %) 2.7 H Nucleated RBCs # (Man) (0.0 - 0.1 x10 3/uL) 0.17 H Laboratory Tests 12/24/21 1415:[Embedded Image Not Available] 12/24/21 0320:[Embedded Image Not Available] Radiology dataRecent Impressions:RADIOLOGY - XR CHEST 1 V 12/24 0531 Report Impression - Status: SIGNED Entered: 12/24/2021 0926 IMPRESSION: 1. Stable postoperative chest. 2. Bilateral pulmonary opacities with central lung zone predominance compatible with edema. Inflammation in the differential. Retrocardiac atelectasis versus consolidation. 3. Right greater than left pleural effusions. Impression By: Catherine Carlisle M.D. Free Text Obj NotesFree Text Obj Notes:General appearance: elderly female in no acute distress, interactiveHEENT: atraumatic, normocephalic, moist mucosal membranesNeck: full range of motion, supple/no meningismusCardiovascular: S1S2 regular rate and rhythm, a-pacedRespiratory: symmetric expansion, no acute respiratory distressAbdomen: soft, obese, non-tender, no distention, no guardingGenitourinary: [place] with clear urineExtremities: pedal pulses palpable, moves all, no clubbing, no cyanosis, LE edemaMusculoskeletal: normal inspection, no muscle spasmNeuro/[employer]: Alert and oriented, intermittently delirious, CNII-XII grossly intact, no motor deficitsSkin: dry, intact and clean surgery dressing Diagnosis, Assessment PlanProblem list/A P: 1. S/P MVR (mitral valve replacement) 2. S/P CABG x 1 3. Postoperative pulmonary dysfunction after cardiac surgery 4. Severe mitral regurgitation 5. CAD (coronary artery disease) 6. CKD (chronic kidney disease) 7. Immunosuppressed status 8. RONA on CPAP 9. Chronic a-fib 10. Crohn disease Free text A P:76-year-old morbidly obese female with history of HTN, HL, IDDM, smoking, RONA onCPAP and home O2 as needed, macular degeneration, Crohn's disease on immunosuppressant medications, and chronic Afib s/p ablation and PPM (on Xarelto), who was admitted recently with heart failure symptoms. Patient underwent elective cardiac cath that showed severe multivessel coronary artery disease notsuitable for percutaneous intervention. 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 She went for surgical revascularization today and preop JORDEN revealed severe mitral regurgitation. After discussing new findings with family, patient underwent MVR (31 Magna valve), CABG x 1 (ROBERTS-LAD), ILAA and pericardectomy on 12/19/2021. Has EF of 45%. Crystalloid 1 L, urine output 700, Cell Saver 700. She is a-paced at baseline. Surgery went well and patient was transferred to CVICU postop in a stable surgical condition. She is currentlyintubated on 2 mics of epinephrine, 2 mics of Levophed and insulin drip. CI 3.0,SvO2 in 60%s, CVP 15 and PAP in 60s. Remains neuro intact, multimodal pain control, monitor for CO2 narcosis and ICU delirium, avoid opiatesContinues on BiPAP for underlying RONA. Does have some hypercapnia. Increase the BiPAP to 18/10. FiO2 down to 50%. Patient remains on BiPAP today we will try to wean her to Teleflex tomorrow.Patient has not been eating much as she remain on BiPAP most of the time. We will continue TPN for 1 day today. Can eat as tolerated.Ultrasound of the right side of the chest does show some effusion but not very bad. Will do ultrasound tomorrow and reassess.Continue aggressive chest PT. Bronchodilators and MucomystRemains hemodynamically stable blood pressure is good. Continue with amiodaroneand beta-delma.Patient is on Lasix 60 IV 3 times daily. Instead of 1 dose of Lasix will give her acetazolamide. Still diuresing well. Continue to monitor the urine output. Also on metolazone 5 mg. Edgardo BMP in the afternoon. Renal following.Insulin drip for better control of sugars.Anemia. Continue to monitor the hemoglobin. No transfusions for now.Not have any chest tubes.PT OTPatient still has [place] for accurate ins and outs Total critical care time 55 minutes Consultants: cardiology, cardiovascular surgery at 1909 RPT #:[id number] OF REPORTPRProgress [id number]:56:00G.[id number] e for patient xatcXMWLOYUWSGAXFZ9889-01-30T72:10:04 [facility] ACL 2021-12-24 15:05:00 [id number] V7dWRv7Jt07L 3NN1H4DqxdRhP7scZcG7oyaL7287-89-69L93:05:[address] [facility] ([facility])Cardiology Progress NoteREPORT#:[id number] REPORT STATUS: SignedDATE:12/24/21 TIME: 1505 PATIENT: KIAH GILES UNIT #: [id number]#: [id number] [address] AGE: 76 SEX: F ATTEND: Jeffry More [facility] AUTHOR: Isabella Clemens AGACNP * ALL edits or amendments must be made on the electronic/computer document * SubjectiveComments:on BIPAP Objective GeneralVS/I O:24 hour I O ending at 0700: 12/24 0700 12/23 190 Intake Total 1270.00 1284.00 Output Total 2421949 Balance -1155.00 -666.00 Intake, IV 1020.00 188.00 Intake, Lipid 50 Intake, Oral 250 720 Intake, 326 TPN/PPN Number 1 Bowel Movements Output, Urine [id number] Patient 120.7 kg Weight Weight Standing scale Measurement Method Vital Signs: Date Time Temp Pulse Resp B/P B/P Pulse O2 O2 Flow FiO2 Mean Ox Delivery Rate 12/24 08 [...] 36.8 70 28 191/82 118 94 12/23 190 71 99 50 12/23 190 99 BiPAP 50 12/23 190 36.8 70 24 194/82 118 93 12/23 180 36.6 72 25 147/73 104 93 12/23 1700 70 28 166/72 104 91 12/23 1600 75 32 168/76 109 92 PATIENT WEIGHT: Weight (lb): 266Weight (oz): 1.57Weight (kg): 120.700 Medications:Active Meds + DC'd Last 24 HrsPantoprazole (PROTONIX) 40 MG DAILY PO Amino Acids/Electrolytes/Dextrose (TPN ADULT- CENTRAL 2000ML) 1,080 ML 2200 IV Lactulose (LACTULOSE) 20 GM DAILY PRN PRN PO Magnesium Hydroxide (MILK OF MAGNESIA) 30 ML DAILY PRN PRN PO Aspirin (ASPIRIN) 81 MG DAILY PO Clopidogrel Bisulfate (Plavix) 75 MG DAILY PO Cyanocobalamin (Vitamin B-12 500 mcg tab) 500 MCG DAILY PO Ferrous Sulfate (FERROUS SULFATE) 300 MG DAILY PO (DC) Ferrous Sulfate (FERROUS SULFATE) 325 MG DAILY PO Metolazone (metOLazone) 5 MG DAILY PO Polyethylene Glycol (MIRALAX) 17 GM DAILY PO Potassium Chloride (POTASSIUM CHLORIDE 20MEQ TAB.ER) 20 MEQ ONCE ONE PO (DC) Lansoprazole (PREVACID) 30 MG DAILY@0600 PO (DC) Potassium Chloride (POTASSIUM CHLORIDE 20MEQ TAB.ER) 40 MEQ ONCE ONE PO (DC) Amino Acids/Electrolytes/Dextrose (TPN ADULT- CENTRAL 1000ML) 960 ML 2200 IV Fat Emulsion (FAT EMULSION 20% (INTRALIPID)) 250 ML 2200 IV Atorvastatin Calcium (LIPITOR) 40 MG 2100 PO Docusate Sodium (DOCUSATE SODIUM) 100 MG BID PO Metoprolol Tartrate (LOPRESSOR) 12.5 MG Q12HR PO Senna (SENOKOT) 17.6 MG BEDTIME PO Acetazolamide (DIAMOX) 250 MG ONCE ONE IV (DC) Sterile Water (WATER FOR INJECTION) 5 ML ONCE ONE IV (DC) Amiodarone HCl (CORDARONE) 200 MG TID PO Acetaminophen (TYLENOL) 650 MG Q4H PRN PRN PO Tramadol HCl (ULTRAM) 25 MG Q4H PRN PRN PO Tramadol HCl (ULTRAM) 50 MG Q4H PRN PRN PO Insulin Human Regular (HumuLIN R) 100 UNIT ASDIR IV (CKD) Sodium Chloride (SODIUM CHLORIDE 0.9%) 99 MLGabapentin (NEURONTIN) 200 MG BID 9A 5P FEED-TUBE (DC) Furosemide (LASIX 40 mg/4 mL INJECTION) 60 MG Q8H IV (CKD) Albumin Human (ALBUMINAR 25%) 25 GM Q8H IV (DC) Fat Emulsion (FAT EMULSION 20% (INTRALIPID)) 100 ML 2200 IV (DC) Amino Acids/Electrolytes/Dextrose (TPN ADULT- CENTRAL 1000ML) 840 ML 2200 IV (DC) Acetylcysteine (MUCOMYST FOR RT) 200 MG RTQ6H NEB Albuterol/Ipratropium (DUONEB) 3 ML RTQ6H NEB Bisacodyl (DULCOLAX) 10 MG ONCE PRN RECTAL Dextrose/Water (Dextrose 10% 1,000 mL) 1,000 ML ASDIR PRN IV Miscellaneous Information (TPN (Central) PHARMACY TO DOSE) 1 EACH ASDIR IV Dopamine HCl/Dextrose (DOPamine 400MG/D5W 250ML) 250 ML ASDIR IV Milrinone Lactate/Dextrose (MILRINONE 20MG/D5W 100ML) 100 ML ASDIR IV (CKD) Vasopressin (VASOSTRICT 20 Unit/NS 100ML) 100 ML ASDIR IV (CKD) Mupirocin (BACTROBAN 2% 22 GM OINTMENT) 1 APPLIC BID NASAL (DC) Acetaminophen (TYLENOL) 650 MG Q4H PRN PRN RECTAL Calcium Chloride (CALCIUM CHLORIDE) 1 GM ASDIR PRN IV Dextrose/Water (DEXTROSE 10% IN WATER) 125 ML ASDIR PRN IV (CKD) Dextrose/Water (DEXTROSE 10% IN WATER) 250 ML ASDIR PRN IV (CKD) Epinephrine (ADRENALIN CHLORIDE) 5 MG ASDIR IV Dextrose/Water (DEXTROSE 5% WATER) 245 MLGlucagon (GLUCAGON) 1 MG ASDIR PRN IM Magnesium Sulfate (MAGNESIUM SULFATE 4GM/SWFI 100ML) 100 ML ASDIR PRN IV Magnesium Sulfate (MAGNESIUM SULFATE 2GM/SWFI 50ML) 50 ML ASDIR PRN IV Magnesium Sulfate/Dextrose (MAGNESIUM SULFATE 1GM/D5W 100ML) 100 ML ASDIR PRN IV Nitroglycerin/Dextrose (NITROGLYCERIN 50,000MCG/D5W 250ML) 250 ML ASDIR IV Norepinephrine Bitartrate (NOREPINEPHRINE 8 MG/NS 250 ML) 250 ML TITRATE IV Potassium Chloride (KCL 20MEQ/SWFI 100ML) 100 ML ASDIR PRN IV Sodium Bicarbonate (SODIUM BICARBONATE) 50 MEQ ASDIR PRN IV Sodium Chloride (SODIUM CHLORIDE 0.9%) 1,000 ML .Q20H IV (DC) Sodium Chloride (SODIUM CHLORIDE 0.9%) 250 ML Q24H IV (DC) Ondansetron HCl (ZOFRAN) 4 MG Q6H PRN PRN IV Vancomycin HCl (VANCOMYCIN HCL) 1,750 MG PREOP ONCALL IV (CKD) Sodium Chloride (NS 0.9%) 500 ML Status post:CABG, MVR, and ILAA Physical ExamGeneral appearance: obese, alert, awakeENT: moist mucosal membranesNeck: no JVDCardiovascular: CV assessment: regular rate and rhythmRespiratory: on oxygen, rhonchiAbdomen: obeseGenitourinary: no flank pain, no urinary catheterUpper extremity: UE assessment: normal temperature, no edemaLower extremity: LE assessment: edemaNeuro/CAPTAIN FIRE PREVENTION BUREAU: alert, 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Skin: dry, intact ResultsFindings/Data:Laboratory Tests 12/24 12/24 12/24 12/24 1415 1139 0913 0522 Blood Gas Puncture Site Art Line Art Line Art Line R Radial O2 Saturation (90 - 100 %) 93.5 96.0 95.7 88.7 L ABG pH (7.35 - 7.45) 7.346 L 7.348 L 7.376 7.363 ABG pCO2 (35.0 - 45 mmHg) 63.5 [...] %) 24 L 26 L 26 L 24 L ABG Hemoglobin (11.0 - 15.0 G/DL) 8.1 L 8.7 L 8.9 L 8.3 L Martin Test N/A N/A Positive Sodium (134 - 147 MEQ/L) 145 149 H 149 H 146 Potassium (3.4 - 5.0 MEQ/L) 3.7 3.1 L 3.2 L 3.1 L Chloride (100 - 108 MEQ/L) 100 102 102 102 Ionized Calcium (1.12 - 1.32 MMOL/L) 1.34 H 1.39 H 1.38 H 1.34 H Lactic Acid (0.9 - 1.7 mmol/l) 1.2 0.7 L 0.7 L 0.8 L Temperature (F) 98.2 99 98.1 98.6 O2 Delivery Device BiPAP BiPAP BiPAP HFNC FiO2 (%) 50 60 70 80 Tidal Volume (ml) 18 14 PEEP (cmH2O) 10 8 8 Pressure Support (cmH2O) 14 12/23 181 Blood Gas Puncture Site Central Line Central [...] Calcium (1.12 - 1.32 MMOL/L) 1.38 H 1.42 H Lactic Acid (0.9 - 1.7 mmol/l) [...] 12/24 12/24 12/23 0913 0653 0535 0320 2236 Chemistry Sodium (134 - 147 mEq/L) 148 [...] H Magnesium (1.80 - 2.40 mg/dL) 2.31 12/233 1812 1810 1643 1506 Chemistry POC Creatinine [...] (Auto) (14.0 - 32.0 %) 2.7 L Colquitt % (Auto) (4.8 - 9.0 %) 11.4 H Eos % (Auto) (0.3 - 3.7 %) 1.0 Baso % (Auto) (0.0 - 2.0 %) 0.2 Neut # (Auto) (2.0 - 7.6 x10 3/uL) 5.21 Lymph # (Auto) (1.0 - 3.8 x10 3/uL) 0.17 L [place]itt # (Auto) (0.1 - 0.8 x10 3/uL) 0.72 Eos # (Auto) (0.0 - 0.2 x10 3/uL) 0.06 Baso # (Auto) (0.0 - 0.2 x10 3/uL) 0.01 Abs Immat Gran (auto) (0.00 - 0.03 x10 3/uL) 0.12 H Add Manual Diff NO Immature Gran % (0.0 - 2.0 %) 1.9 Nucleated RBC % (0 - 0 %) 2.7 H Nucleated RBCs # (Man) (0.0 - 0.1 x10 3/uL) 0.17 H Laboratory Tests 12/24 12/24 1415 0320 Chemistry Magnesium (1.80 - 2.40 mg/dL) 2.40 2.31 Radiology data:Recent Impressions:RADIOLOGY - XR CHEST 1 V 12/24 0631 Report Impression - Status: SIGNED Entered: 12/24/2021 7777 IMPRESSION: 1. Stable postoperative chest. 2. Bilateral pulmonary opacities with central lung zone predominance compatible with edema. Inflammation in the differential. Retrocardiac atelectasis versus consolidation. 3. Right greater than left pleural effusions. Impression By: Catherine Carlisle M.D. Results: labs reviewed, vital signs reviewed, rhythm personally rev'dTelemetry Interpretation:paced Diagnosis, Assessment PlanPlan discussed with: daughter, nurse Free Text DxA P NotesFree Text DxA P Notes:Ms Giles is a 76 y/o Femal w/ PMHx: CAD, HLD, T2DM, RONA (CPAP at home), smoker,Crohn's disease, AF s/p ablation (on Xarelto), s/p PPM and lymphedema. Dr. Ramos is consulted for CAD s/p CABG, MVR. - CAD s/p CABG, MVR, and ILAA. post-op per CTS and critical care On Plavix, aspirin, beta-delma, statin volume management per Nephrology - Chr AF s/p PPM/ablation. Rate controlled, paced rhythm. had ILAA during bypass - HTN. BP stable - HLD. On statins. - Crohn's disease. Per IM. -MARCELLO - resolvingper Nephrology -Resp insufficiency on BIPAP per critical care -volume overload negative fluid balance diuretic management per nephrology continue supportive care at 1537 at 2254 RPT #:[id number] OF REPORTPRProgress [id number]:05:00G.[id number] e for patient [id number]:38:42 HC ACL 2021-12-24 14:47:00 [id number] uqBLhMolKwqK [id number]/3486-37-34T79:47:00 [facility] Prog.Note-NutritionREPORT#:[id number] REPORT STATUS: SignedDATE:12/24/21 TIME: 1446 PATIENT: KIAH GILES UNIT #: [id number]#: [id number] [address] [birth year] AGE: 76 SEX: F ATTEND: Jeffry More AUTHOR: Vanessa Morales [facility] * ALL edits or amendments must be made on the electronic/computer document * Nutrition Support Nutrition SupportDietitian nutrition assessmentThe data set between the solid lines has been imported from the dietitian's assessment. BMI Calculated: 45.7Nutrition related diagnosis: Morbid obesityNutrition diagnosis details: BMI 40 or moreNutrition problem: Increased nutrient needsNutrition etiology: Chronic diseaseNutrition signs and symptoms: S/P CABGNutrition prescription: 1. RECOMMEND 1800 ADA DIABETIC DIET. 2. PROVIDE GLUCERNA TID WITH MEALS. 3. CONTINUE CURRENT TPN ORDER TO SUPPLEMENT MEALS UNTILPO INTAKE >50% AT MEALS. 4. MONITOR PO, WT, LABS, BM.Dietitian name: Serenity Garner DIETAssessment completed: 12/22/21 Medication therapy: adult PNIndication for treatment: Alberto using an "X" for all appropriate indications: Evidence of PCM and enteral nutrition (EN) not feasible Malnourished surgical patient able to have PN 5-7 days preoperatively and EN not feasible PN for anticipated need of >5-7 days and EN not feasibleX Supplemental PN if unable to meet EN goal within 7-10 days Other: Current therapy:Adult Parenteral Nutrition Custom Formulation for Central Administration plus LipidsDay of therapy:Day 5Weight: Actual weight (kg): 120.7Vital signs/I O:24 hour I O ending at 0700: 12 0700 12/23 1900 Intake Total 1270.00 1284.00 Output Total 2425 1950 Balance -1155.00 -666.00 Intake, IV 1020.00 188.00 Intake, Lipid 50 Intake, Oral 250 720 Intake, 326 TPN/PPN Number 1 Bowel Movements Output, Urine 9529 4463 Patient 120.7 kg Weight Weight Standing scale Measurement Method Vital Signs: Date Time Temp Pulse Resp B/P B/P Pulse O2 O2 Flow FiO2 Mean Ox Delivery Rate 12/24 08 [...] 12/23 1500 69 32 145/103 117 94 Labs:Laboratory Tests 12/24 12/23 12/23 12/22 12/22 0320 [...] Phosphorus (2.5 - 4.9 MG/DL) 3.4 12/22 043 Magnesium (1.80 - 2.40 mg/dL) 2.31 12/24 0320 Albumin (3.4 - 5.0 g/dL) 4.30 12/22 [...] (70 - 110 MG/DL) 186 H Diet: regularCalorie needs:7266-4809 kcal/day (30-35 kcal/kg/day) 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 assessment on 12/22Protein needs:90-120 g/day 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 assessment on 12/22IV access:Right IJ CVCTreatment plan: consult, change regimenRegimen:CAPS Custom Formulation Rate: 45 mL/hr (1080 mL/day)Total kcal: 1725 kcal/day ( 96% of daily kcal goal) Amino acids 115 g/day (100% of daily protein goal)Dextrose 225 g/dayLipids 50 g/day Sodium chloride mEq/daySodium acetate mEq/dayMagnesium sulfate mEq/dayCalcium gluconate mEq/dayPotassium chloride 40 mEq/dayPotassium acetate mEq/dayPotassium phosphate mmol/daySodium phosphate -- mmol/day MVI 10 mL dailyTrace elements 1 mL daily Insulin, regular -- units Orders outside of TPN:Furosemide 60 mg IV [id number] dripMetolazone 5 mg PO dailyOndansetron 4 mg IV q6h PRN (last administered 12/22 at 2144)Pantoprazole 40 mg PO daily 12/23: Acetazolamide 250 mg IV x110/11: Potassium chloride 20 mEq IV x110/12: Potassium chloride 20 mEq IV x210/12: Potassium chloride 20 mEq PO x110/12: Potassium chloride 40 mEq PO x1 Rationale:HPI: This 76-year-old female, from [facility], with past medical historyof macular degeneration, obesity, obstructive sleep apnea (CPAP at home), formersmoker, hypertension, hyperlipidemia, diabetes, Crohn's disease, chronic atrial fibrillation (status post 3 ablations in the past and on Xarelto), and pacemakerplacement who had a recent admission to the hospital with heart failure symptoms. She has been admitted to the hospital for elective heart cath. Coronary angiogram showed severe multivessel coronary artery disease not suitable for percutaneous intervention. The patient is now status post CABG x1 and MVR on 12/[address] Romero. Due to the patient s dependence on BiPAP postoperatively, Dr. Romero would like to initiate TPN to meet this patient s nutritional needs. Pharmacy has been consulted for the dosing and monitoring of TPN. 12/24 Assessment and Plan Patient with a regular diet, but she developed nausea overnight. A KUB showed a nonobstructive gas pattern. An NG tube was inserted, however, the patient self-removed this overnight. Per discussion on rounds, the patient is not eating welldue to BiPAP-dependence, and ICC would like to continue TPN for now. Macronutrients: Will increase the rate of TPN to 45 mL/hr to accommodate the increased volume from advancing amino acids and dextrose. Will increase amino acids and dextrose to 115 g/day and 225 g/day, respectively. Will continue lipids at 50 g/day. This will provide 1725 kcal/day. (100% of daily protein goaland 96% of daily kcal goal). Will advance TPN in the coming days as tolerated. Triglycerides 67 on 12/18; monitor at least weekly while on TPN. Electrolytes: Sodium has trended up to 148. Will remove sources of sodium from TPN. Potassium low at 3.2. The patient has required significant supplementation outside of TPN. Will increase potassium chloride in TPN. Calcium has trended up,and now elevated at 10.8. No calcium in TPN. All other electrolytes are within normal limits. Electrolytes in TPN as outlined above. Supplement additional electrolytes outside of TPN as indicated. Renal I/O: BUN/SCr 60/1.0 (BUN acutely increased , SCr stable). Urine output with 4375 mL documented over the past 24 hours. Will concentrate TPN as much as possible given recent cardiovascular surgery and need for frequent diuresis. Thepatient will receive 1080 mL/day of fluids from TPN and 250 mL/day from lipids. Hepatic: Tbili 0.50, AST/ALT , Alk phos 57, and albumin 4.30 on 12/22; monitor at least weekly while on TPN Glycemic Control: Serum blood glucose was 154 mg/dL this morning. Spfki-xz-eakq glucose has ranged 142-326 mg/dL over the past 24 hours. The patient is currently maintained on an insulin drip. Will not add insulin to TPN at this time. at 1450 RPT #:[id number] OF REPORTPRProgress [id number]:47:00G.[id number] e for patient [id number]:51:02 ACL 2021-12-24 11:34:00 [id number] YGYaAHDWCx7u 7jamxyaASJCeBO/[id number]:34:00 [facility] CenterHospitalist Progress NoteREPORT#:[id number] REPORT STATUS: SignedDATE:12/24/21 TIME: 1134 PATIENT: KIAH GILES UNIT #: [id number]#: [id number] [address] [birth year] AGE: 76 SEX: F ATTEND: Jeffry More AUTHOR: Meryl Rosa MD * ALL edits or amendments must be made on the electronic/computer document * SubjectiveChief complaint:she sit on the chair . she start ambulate with PT in the room . acute respiratory failure --post CABGHPI: 76 years old female with PMH of macular degeneration, obesity, obstructive sleepapnea (CPAP at home), former smoker, hypertension, hyperlipidemia, diabetes, Crohn's disease, chronic atrial fibrillation status post 3 ablations in the past(on Xarelto), pacemaker placement is admitted to the hospital post cardiac cath . she need CABG . she had sob for years . sob got worse . she was [place] . she had cath 3 weeks ago . she was reffered to here for stents placement . she had cath yesterday . it show multiple vessels CAD . she is recommend CABG . she still feel sob . no cp no nausea no vomiting no fever no abdominal pain no dizziness . Review of SystemsConstitutional:Reports: fatigue, generalized weakness. Denies: fever, lethargy. Respiratory:Reports: SOB. Denies: wheezing. Cardiovascular:Denies: edema, orthopnea, palpitations. GI:Denies: abdominal pain, nausea, rectal pain. :Denies: flank pain. Neuro:Denies: dizziness, headache. Objective GeneralVS/I O:Vital Signs: Date Time Temp Pulse Resp B/P B/P Pulse O2 O2 Flow FiO2 Mean Ox Delivery Rate 12/24 0709 [...] flow 60 70 nasal cannula 12/23 1938 36.9 70 34 193/79 113 91 12/24 1907 36.8 70 28 191/82 118 94 12/23 1906 71 99 50 10/11 1907 99 BiPAP 50 12/23 190 36.8 [...] O ending at 0700: 12/24 0700 12/23 190 Intake Total 1270.00 1284.00 Output Total 2425 1950 Balance -1155.00 -666.00 Intake, IV 1020.00 188.00 Intake, Lipid 50 Intake, Oral 250 720 Intake, 326 TPN/PPN Number 1 Bowel Movements Output, Urine 2425 1950 Patient 120.7 kg Weight Weight Standing scale Measurement Method PATIENT WEIGHT: Weight (lb): 266Weight (oz): 1.57Weight (kg): 120.700 Medications:Active Meds + DC'd Last 24 HrsPantoprazole (PROTONIX) 40 MG DAILY PO Aspirin (ASPIRIN) 81 MG DAILY PO Clopidogrel Bisulfate (Plavix) 75 MG DAILY PO Cyanocobalamin (Vitamin B-12 500 mcg tab) 500 MCG DAILY PO Ferrous Sulfate (FERROUS SULFATE) 300 MG DAILY PO (DC) Ferrous Sulfate (FERROUS SULFATE) 325 MG DAILY PO Metolazone (metOLazone) 5 MG DAILY PO Polyethylene Glycol (MIRALAX) 17 GM DAILY PO Potassium Chloride (POTASSIUM CHLORIDE 20MEQ TAB.ER) 20 MEQ ONCE ONE PO (DC) Lansoprazole (PREVACID) 30 MG DAILY@0600 PO (DC) Potassium Chloride (POTASSIUM CHLORIDE 20MEQ TAB.ER) 40 MEQ ONCE ONE PO (DC) Amino Acids/Electrolytes/Dextrose (TPN ADULT- CENTRAL 1000ML) 960 ML 2200 IV Fat Emulsion (FAT EMULSION 20% (INTRALIPID)) 250 ML 2200 IV Atorvastatin Calcium (LIPITOR) 40 MG 2100 FEED-TUBE (DC) Atorvastatin Calcium (LIPITOR) 40 MG 2100 PO Docusate Sodium (DOCUSATE SODIUM) 100 MG BID PO Metoprolol Tartrate (LOPRESSOR) 12.5 MG Q12HR PO Senna (SENOKOT) 17.6 MG BEDTIME FEED-TUBE (DC) Senna (SENOKOT) 17.6 MG BEDTIME PO Acetazolamide (DIAMOX) 250 MG ONCE ONE IV (DC) Sterile Water (WATER FOR INJECTION) 5 ML ONCE ONE IV (DC) Amiodarone HCl (CORDARONE) 200 MG TID PO Magnesium Hydroxide (MILK OF MAGNESIA) 30 ML ONCE ONE PO (DC) Acetaminophen (TYLENOL) 650 MG Q4H PRN PRN PO Tramadol HCl (ULTRAM) 25 MG Q4H PRN PRN PO Tramadol HCl (ULTRAM) 50 MG Q4H PRN PRN PO Insulin Human Regular (HumuLIN R) 100 UNIT ASDIR IV (CKD) Sodium Chloride (SODIUM CHLORIDE 0.9%) 99 MLAmiodarone HCl (CORDARONE) 200 MG TID FEED-TUBE (DC) Aspirin (ASPIRIN) 81 MG DAILY FEED-TUBE (DC) Clopidogrel Bisulfate (Plavix) 75 MG DAILY FEED-TUBE (DC) Cyanocobalamin (Vitamin B-12 500 mcg tab) 500 MCG DAILY FEED-TUBE (DC) Docusate Sodium (DOCUSATE SODIUM) 100 MG BID FEED-TUBE (DC) Ferrous Sulfate (FERROUS SULFATE) 300 MG DAILY FEED-TUBE (DC) Gabapentin (NEURONTIN) 200 MG BID 9A 5P FEED-TUBE (DC) Metolazone (metOLazone) 5 MG DAILY FEED-TUBE (DC) Metoprolol Tartrate (LOPRESSOR) 12.5 MG Q12HR FEED-TUBE (DC) Polyethylene Glycol (MIRALAX) 17 GM DAILY FEED-TUBE (DC) Lansoprazole (PREVACID) 30 MG DAILY@0600 FEED-TUBE (DC) Furosemide (LASIX 40 mg/4 mL INJECTION) 60 MG Q8H IV (CKD) Acetaminophen (TYLENOL) 650 MG Q4H PRN PRN FEED-TUBE (DC) Tramadol HCl (ULTRAM) 25 MG Q4H PRN PRN FEED-TUBE (DC) Tramadol HCl (ULTRAM) 50 MG Q4H PRN PRN FEED-TUBE (DC) Albumin Human (ALBUMINAR 25%) 25 GM Q8H IV (DC) Fat Emulsion (FAT EMULSION 20% (INTRALIPID)) 100 ML 2200 IV (DC) Amino Acids/Electrolytes/Dextrose (TPN ADULT- CENTRAL 1000ML) 840 ML 2200 IV (DC) Acetylcysteine (MUCOMYST FOR RT) 200 MG RTQ6H NEB Albuterol/Ipratropium (DUONEB) 3 ML RTQ6H NEB Bisacodyl (DULCOLAX) 10 MG ONCE PRN RECTAL Dextrose/Water (Dextrose 10% 1,000 mL) 1,000 ML ASDIR PRN IV (DC) Miscellaneous Information (TPN (Central) PHARMACY TO DOSE) 1 EACH ASDIR IV (DC) Dopamine HCl/Dextrose (DOPamine 400MG/D5W 250ML) 250 ML ASDIR IV Milrinone Lactate/Dextrose (MILRINONE 20MG/D5W 100ML) 100 ML ASDIR IV (CKD) Vasopressin (VASOSTRICT 20 Unit/NS 100ML) 100 ML ASDIR IV (CKD) Mupirocin (BACTROBAN 2% 22 GM OINTMENT) 1 APPLIC BID NASAL (DC) Acetaminophen (TYLENOL) 650 MG Q4H PRN PRN RECTAL Calcium Chloride (CALCIUM CHLORIDE) 1 GM ASDIR PRN IV Dextrose/Water (DEXTROSE 10% IN WATER) 125 ML ASDIR PRN IV (CKD) Dextrose/Water (DEXTROSE 10% IN WATER) 250 ML ASDIR PRN IV (CKD) Epinephrine (ADRENALIN CHLORIDE) 5 MG ASDIR IV Dextrose/Water (DEXTROSE 5% WATER) 245 MLGlucagon (GLUCAGON) 1 MG ASDIR PRN IM Magnesium Sulfate (MAGNESIUM SULFATE 4GM/SWFI 100ML) 100 ML ASDIR PRN IV Magnesium Sulfate (MAGNESIUM SULFATE 2GM/SWFI 50ML) 50 ML ASDIR PRN IV Magnesium Sulfate/Dextrose (MAGNESIUM SULFATE 1GM/D5W 100ML) 100 ML ASDIR PRN IV Nitroglycerin/Dextrose (NITROGLYCERIN 50,000MCG/D5W 250ML) 250 ML ASDIR IV Norepinephrine Bitartrate (NOREPINEPHRINE 8 MG/NS 250 ML) 250 ML TITRATE IV Potassium Chloride (KCL 20MEQ/SWFI 100ML) 100 ML ASDIR PRN IV Sodium Bicarbonate (SODIUM BICARBONATE) 50 MEQ ASDIR PRN IV Sodium Chloride (SODIUM CHLORIDE 0.9%) 1,000 ML .Q20H IV (DC) Sodium Chloride (SODIUM CHLORIDE 0.9%) 250 ML Q24H IV (DC) Ondansetron HCl (ZOFRAN) 4 MG Q6H PRN PRN IV Vancomycin HCl (VANCOMYCIN HCL) 1,750 MG PREOP ONCALL IV (CKD) Sodium Chloride (NS 0.9%) 500 ML Physical ExamGeneral appearance: alert, awake, orientedHead/Eyes: atraumatic, normal conjunctiva/sclera, normal eyelids/periorb., normocephalicENT: intubatedNeck: full range of motion, non-tender, no JVDCardiovascular: normal heart sounds, regular rate rhythmRespiratory: dyspneic, hypercapnia, hypoxia, on oxygen, clear to auscultationAbdomen: non-tender, normal bowel sounds, soft, no distentionExtremities: moves all, no calf tenderness, no edemaNeuro/CAPTAIN FIRE PREVENTION BUREAU: alertSkin: dry, intact ResultsFindings/Data:Laboratory Tests 12/24 12/24 12/23 0918 0535 2127 Blood Gas Puncture Site Art Line R [...] - 15.0 G/DL) 8.9 L 8.3 L 8.8 L Martin Test N/A Positive VBG pH [...] Calcium (1.12 - 1.32 MMOL/L) 1.38 H 1.34 H 1.38 H Lactic Acid (0.9 - [...] Calcium (1.12 - 1.32 MMOL/L) 1.42 H 1.40 H Lactic Acid (0.9 - 1.7 [...] (Auto) (14.0 - 32.0 %) 2.7 L Colquitt % (Auto) (4.8 - 9.0 %) 11.4 H Eos % (Auto) (0.3 - 3.7 %) 1.0 Baso % (Auto) (0.0 - 2.0 %) 0.2 Neut # (Auto) (2.0 - 7.6 x10 3/uL) 5.21 Lymph # (Auto) (1.0 - 3.8 x10 3/uL) 0.17 L [place]itt # (Auto) (0.1 - 0.8 x10 3/uL) 0.72 Eos # (Auto) (0.0 - 0.2 x10 3/uL) 0.06 Baso # (Auto) (0.0 - 0.2 x10 3/uL) 0.01 Abs Immat Gran (auto) (0.00 - 0.03 x10 3/uL) 0.12 H Add Manual Diff NO Immature Gran % (0.0 - 2.0 %) 1.9 Nucleated RBC % (0 - 0 %) 2.7 H Nucleated RBCs # (Man) (0.0 - 0.1 x10 3/uL) 0.17 H Treatment Prophylaxis Treatment ProphylaxisDrain(s)/tube(s): Drain(s)/tube(s): chest (x3) Diagnosis, Assessment PlanConsultants: cardiology, cardiovascular surgery Free Text DxA P NotesFree text DxA P notes: 76 years old female with PMH of macular degeneration, obesity, obstructive sleepapnea (CPAP at home), former smoker, hypertension, hyperlipidemia, diabetes, Crohn's disease, chronic atrial fibrillation status post 3 ablations in the past(on Xarelto), pacemaker placement CAD -- multiple vesssels HTNDM HLDCrohn's diseasechronic atrial fibrillation status post 3 ablationsmacular degenerationobesityobstructive sleep apneaacute respiratory failure --post surgery severe mitral valve [...] MVR (31 Magna valve), CABG x 1 (ROBERTS-LAD), ILAA and pericardectomy -- she remain intubated on the vent -- chest tube are in place -on levophed and epinephrine drip -- monitor in CCU 12/20- she was extubated --on bipap now -- NPO --off Levophed/epinephrine, continue vasopressin, inotropes with milrinone, -- chest tube remain in place -- she is stable post surgery 12/21-- she is on high flow O2 -- edema --lasix --chest tube in place --- she is hemodynamic stable -- continue monitor in CCU 12/22- she remain on high O2 CXR show worsening pulmonary venous vascular congestion. --lasix iv tid -- chest tube are [...] all image and consultants notes Current Medications Sig/Frankie Start time Last Medication Dose Route Stop Time Status Admin Amlodipine Besylate 5 MG DAILY 12/18 899 AC PO 01/17 859 Furosemide 10 MG DAILY 12/18 899 AC PO 01/17 859 Lisinopril 40 MG DAILY 12/18 899 AC PO 01/16 1214 Losartan Potassium 100 MG DAILY 12/18 899 AC PO 01/17 0859 Metolazone 10 MG DAILY 12/18 899 AC PO 01/17 0859 Pantoprazole 40 MG DAILY@0600 12/18 599 AC PO 01/17 0559 Cefazolin Sodium 3 GM PREOP ONCALL 12/18 050 CKD Sodium Chloride 250 ML IV 12/18 235 [...] IV 12/18 1158 Sodium Chloride 1,000 ML .[id number] 12/17 1200 AC 12/17 IV 12/17 1839 1404 Sodium Chloride 500 ML ASDIR PRN 12/17 1200 AC IV 12/18 1158 Adenosine 0 .STK-MED ONE 12/17 1052 DC IV Sodium Chloride 50 ML .STK-MED ONE 12/17 1052 DC IV Iopamidol 100 ML .STK-MED ONE 12/17 1034 DC 12/17 IV 12/17 1035 1034 Fentanyl Citrate 0 .STK-MED ONE 12/17 1019 DC 12/17 .ROUTE 1030 Midazolam HCl 0 .STK-MED ONE 12/17 1019 DC 12/17 .ROUTE 1030 Heparin Sodium/ 500 ML .STK-MED ONE 12/17 0949 DC 10 Sodium Chloride IV 1030 Heparin Sodium 0 .STK-MED ONE 12/17 0940 DC 12/17 .ROUTE 1030 Heparin Sodium/ 1,000 ML .STK-MED ONE 12/17 0840 DC 10 Sodium Chloride IV 1030 Heparin Sodium/ 500 ML .STK-MED ONE 12/17 0840 DC 12/17 Sodium Chloride IV 1030 Lidocaine HCl 0 .STK-MED ONE 12/18 939 DC 12/17 .ROUTE 1030 Nitroglycerin/ 250 ML .STK-MED ONE 12/18 939 DC 12/17 Dextrose IV 1030 Verapamil HCl 0 .STK-MED ONE 12/17 0840 DC 10 IV 1030 Home Medications:RIVAROXABAN (XARELTO) 20 MG PO DAILY amLODIPine (NORVASC) [...] DAILY INSULIN DETEMIR (LEVEMIR FlexTouch (15mL)) 50 UNITS SUBQ BID INSULIN LISPRO (HumaLOG CARTRIDGE (15mL)) 0 UNITS SUBQ TID LIRAGLUTIDE (VICTOZA (6mL)) 1.8 MG SUBQ DAILY metFORMIN (GLUCOPHAGE) 1,000 MG PO BID ADALIMUMAB + SUPPLIES (HUMIRA PREFILLED PEN) 40 MG SUBQ Q14D azaTHIOprine (IMURAN) 50 MG PO DAILY Quality: Gen Med Crit Care Current MedicationsCurrent medication review:Home Medications:RIVAROXABAN (XARELTO) 20 MG PO DAILY amLODIPine (NORVASC) [...] DAILY INSULIN DETEMIR (LEVEMIR FlexTouch (15mL)) 50 UNITS SUBQ BID INSULIN LISPRO (HumaLOG CARTRIDGE (15mL)) 0 UNITS SUBQ TID LIRAGLUTIDE (VICTOZA (6mL)) 1.8 MG SUBQ DAILY metFORMIN (GLUCOPHAGE) 1,000 MG PO BID ADALIMUMAB + SUPPLIES (HUMIRA PREFILLED PEN) 40 MG SUBQ Q14D azaTHIOprine (IMURAN) 50 MG PO DAILY I attest that the foregoing medication list in the medical record is true, accurate, and complete to the best of my knowledge. at 1725 RPT #:[id number] OF REPORTPRProgress xjxi0826-19-68G96:34:00G.[id number] e for patient htveNNKJDCCJIPEGCW3890-75-21R73:26:07 [facility] 2021-12-24 11:06:00 [id number]t pDg664yr1C5V 2fjmAh3umlwClYmd3R8rk6Nr5986-59-64N80:06:[address] [facility] ([facility])Rehab Progress NoteREPORT#:[id number] REPORT STATUS: SignedDATE:12/24/21 TIME: 1106 PATIENT: KIAH GILES UNIT #: [id number]#: [id number] [address] AGE: 76 SEX: F ATTEND: Jeffry More MDADM AUTHOR: Alicia Pantoja NP * ALL edits or amendments must be made on the electronic/computer document * SubjectiveChief complaint:rehab follow-upFatigueStill in CVICUShortness of breath with increased activitySignificant generalized weaknessBilateral lower extremity edemaNo GOLD/N/V/D14 systems reviewed and negative except that mentioned above. Objective GeneralVS:Vital Signs: Date Time Temp Pulse Resp B/P B/P Pulse O2 O2 Flow FiO2 Mean Ox Delivery Rate 12/24 1415 [...] 1938 98.4 70 34 193/79 113 91 12/23 190 98.2 70 28 191/82 118 94 12/23 1906 71 99 50 12/23 190 99 BiPAP 50 12/23 190 98.2 70 24 194/82 118 93 12/23 180 97.9 72 25 147/73 104 93 12/23 1700 70 28 166/72 104 91 PATIENT WEIGHT: Weight (lb): 266Weight (oz): 1.57Weight (kg): 120.700 Medications:Active Meds + DC'd Last 24 HrsPantoprazole (PROTONIX) 40 MG DAILY PO Amino Acids/Electrolytes/Dextrose (TPN ADULT- CENTRAL 2000ML) 1,080 ML 2200 IV Bisacodyl (DULCOLAX) 10 MG DAILY PRN PRN RECTAL Acetazolamide (DIAMOX) 250 MG ONCE ONE IV (DC) Sterile Water (WATER FOR INJECTION) 5 ML ASDIR PRN IV Lactulose (LACTULOSE) 20 GM DAILY PRN PRN PO Magnesium Hydroxide (MILK OF MAGNESIA) 30 ML DAILY PRN PRN PO Aspirin (ASPIRIN) 81 MG DAILY PO Clopidogrel Bisulfate (Plavix) 75 MG DAILY PO Cyanocobalamin (Vitamin B-12 500 mcg tab) 500 MCG DAILY PO Ferrous Sulfate (FERROUS SULFATE) 300 MG DAILY PO (DC) Ferrous Sulfate (FERROUS SULFATE) 325 MG DAILY PO Metolazone (metOLazone) 5 MG DAILY PO Polyethylene Glycol (MIRALAX) 17 GM DAILY PO Potassium Chloride (POTASSIUM CHLORIDE 20MEQ TAB.ER) 20 MEQ ONCE ONE PO (DC) Lansoprazole (PREVACID) 30 MG DAILY@0600 PO (DC) Potassium Chloride (POTASSIUM CHLORIDE 20MEQ TAB.ER) 40 MEQ ONCE ONE PO (DC) Amino Acids/Electrolytes/Dextrose (TPN ADULT- CENTRAL 1000ML) 960 ML 2200 IV Fat Emulsion (FAT EMULSION 20% (INTRALIPID)) 250 ML 2200 IV Atorvastatin Calcium (LIPITOR) 40 MG 2100 PO Docusate Sodium (DOCUSATE SODIUM) 100 MG BID PO Metoprolol Tartrate (LOPRESSOR) 12.5 MG Q12HR PO Senna (SENOKOT) 17.6 MG BEDTIME PO Acetazolamide (DIAMOX) 250 MG ONCE ONE IV (DC) Sterile Water (WATER FOR INJECTION) 5 ML ONCE ONE IV (DC) Amiodarone HCl (CORDARONE) 200 MG TID PO Acetaminophen (TYLENOL) 650 MG Q4H PRN PRN PO Tramadol HCl (ULTRAM) 25 MG Q4H PRN PRN PO Tramadol HCl (ULTRAM) 50 MG Q4H PRN PRN PO Insulin Human Regular (HumuLIN R) 100 UNIT ASDIR IV (CKD) Sodium Chloride (SODIUM CHLORIDE 0.9%) 99 MLGabapentin (NEURONTIN) 200 MG BID 9A 5P FEED-TUBE (DC) Furosemide (LASIX 40 mg/4 mL INJECTION) 60 MG Q8H IV (CKD) Fat Emulsion (FAT EMULSION 20% (INTRALIPID)) 100 ML 2200 IV (DC) Amino Acids/Electrolytes/Dextrose (TPN ADULT- CENTRAL 1000ML) 840 ML 2200 IV (DC) Acetylcysteine (MUCOMYST FOR RT) 200 MG RTQ6H NEB Albuterol/Ipratropium (DUONEB) 3 ML RTQ6H NEB Bisacodyl (DULCOLAX) 10 MG ONCE PRN RECTAL Dextrose/Water (Dextrose 10% 1,000 mL) 1,000 ML ASDIR PRN IV Miscellaneous Information (TPN (Central) PHARMACY TO DOSE) 1 EACH ASDIR IV Dopamine HCl/Dextrose (DOPamine 400MG/D5W 250ML) 250 ML ASDIR IV Milrinone Lactate/Dextrose (MILRINONE 20MG/D5W 100ML) 100 ML ASDIR IV (CKD) Vasopressin (VASOSTRICT 20 Unit/NS 100ML) 100 ML ASDIR IV (CKD) Mupirocin (BACTROBAN 2% 22 GM OINTMENT) 1 APPLIC BID NASAL (DC) Acetaminophen (TYLENOL) 650 MG Q4H PRN PRN RECTAL Calcium Chloride (CALCIUM CHLORIDE) 1 GM ASDIR PRN IV Dextrose/Water (DEXTROSE 10% IN WATER) 125 ML ASDIR PRN IV (CKD) Dextrose/Water (DEXTROSE 10% IN WATER) 250 ML ASDIR PRN IV (CKD) Epinephrine (ADRENALIN CHLORIDE) 5 MG ASDIR IV Dextrose/Water (DEXTROSE 5% WATER) 245 MLGlucagon (GLUCAGON) 1 MG ASDIR PRN IM Magnesium Sulfate (MAGNESIUM SULFATE 4GM/SWFI 100ML) 100 ML ASDIR PRN IV Magnesium Sulfate (MAGNESIUM SULFATE 2GM/SWFI 50ML) 50 ML ASDIR PRN IV Magnesium Sulfate/Dextrose (MAGNESIUM SULFATE 1GM/D5W 100ML) 100 ML ASDIR PRN IV Nitroglycerin/Dextrose (NITROGLYCERIN 50,000MCG/D5W 250ML) 250 ML ASDIR IV Norepinephrine Bitartrate (NOREPINEPHRINE 8 MG/NS 250 ML) 250 ML TITRATE IV Potassium Chloride (KCL 20MEQ/SWFI 100ML) 100 ML ASDIR PRN IV Sodium Bicarbonate (SODIUM BICARBONATE) 50 MEQ ASDIR PRN IV Sodium Chloride (SODIUM CHLORIDE 0.9%) 1,000 ML .Q20H IV (DC) Sodium Chloride (SODIUM CHLORIDE 0.9%) 250 ML Q24H IV (DC) Ondansetron HCl (ZOFRAN) 4 MG Q6H PRN PRN IV Vancomycin HCl (VANCOMYCIN HCL) 1,750 MG PREOP ONCALL IV (CKD) Sodium Chloride (NS 0.9%) 500 ML Physical ExamGeneral appearance: obese, alert, awake, orientedPsych: alert, oriented x 3HEENT: anicteric, mucosal membranes moistNeck: supple, no JVDCardiovascular: regular rate rhythm, no murmurRespiratory: diminished breath sounds (bases ), on oxygen (Hi flow O2 )Abdomen: bowel sounds present, non-distended, soft, non-tenderSkin: dry, intact, no rash, incisions D/IMusculoskeletal - general: Musculoskeletal - general: swelling (BLE), moving all ext AGNeuro/[employer]: alert, 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, normal speech, no motor deficits, no sensory deficits ResultsFindings/Data:Laboratory Tests: 12/24 12/24 12/24 12/24 12/24 1424 1415 1415 1139 0913Blood Gas Puncture Site Art Line Art Line [...] Calcium (1.12 - 1.32 MMOL/L) 1.34 H 1.39 H Lactic Acid (0.9 - 1.7 mmol/l) 1.2 0.7 L Temperature (F) 98.2 99 O2 Delivery Device BiPAP BiPAP FiO2 (%) 50 60 Tidal Volume (ml) 18 PEEP (cmH2O) 10 8 Pressure Support (cmH2O) 14Chemistry Sodium (134 - 147 mEq/L) 145 Potassium [...] 12/24 12/24 12/24 12/24 0913 0653 0535 0320Blood Gas Puncture Site Art Line R Radial [...] Calcium (1.12 - 1.32 MMOL/L) 1.38 H 1.34 H Lactic Acid (0.9 - 1.7 mmol/l) 0.7 L 0.8 L Temperature (F) 98.1 98.6 O2 Delivery Device BiPAP HFNC FiO2 (%) 70 80 Tidal Volume (ml) 14 PEEP (cmH2O) 8Chemistry Sodium (134 - 147 mEq/L) 148 H [...] 10.8 H Magnesium (1.80 - 2.40 mg/dL) 2.31Hematology WBC (4.5 - 11.0 x10 3/uL) 6.3 [...] (Auto) (14.0 - 32.0 %) 2.7 L [place] % (Auto) (4.8 - 9.0 %) 11.4 H Eos % (Auto) (0.3 - 3.7 %) 1.0 Baso % (Auto) (0.0 - 2.0 %) 0.2 Neut # (Auto) (2.0 - 7.6 x10 3/uL) 5.21 Lymph # (Auto) (1.0 - 3.8 x10 3/uL) 0.17 L [place] # (Auto) (0.1 - 0.8 x10 3/uL) 0.72 Eos # (Auto) (0.0 - 0.2 x10 3/uL) 0.06 Baso # (Auto) (0.0 - 0.2 x10 3/uL) 0.01 Abs Immat Gran (auto) (0.00 - 0.03 0.12 Hx10 3/uL) Add Manual Diff NO Immature Gran % (0.0 - 2.0 %) 1.9 Nucleated RBC % (0 - 0 %) 2.7 H Nucleated RBCs # (Man) (0.0 - 0.1 0.17 Hx10 3/uL) 12/23 12/23 12/23 12/23 2236 2123 1812 1810Blood Gas Puncture Site Central Line Central Line [...] Calcium (1.12 - 1.32 MMOL/L) 1.38 H 1.42 H Lactic Acid (0.9 - 1.7 mmol/l) 0.8 L 0.7 L O2 Delivery Device HFNC HFNC FiO2 (%) 70 70 Tidal Volume (ml) 60Chemistry POC Creatinine (0.6 - 1.0 mg/dL) 1.2 H 1.3 H POC Glucose (70 - 110 MG/DL) 162 H 163 H POC Glucose (mg/dL) (70 - 110 MG/DL) 176 H 186 H Diagnosis, Assessment PlanFree Text A P:Critical illness myopathyStatus post CABG x1 Status post MVRGeneralized weaknessDeconditioningImpaired ADLs, mobility, gait, balance and endurance postoperative anemiaMorbid obesityCADHLD Crohn's diseaseChronic A. fibHypoxic respiratory failure Plan:Continue PT/OTOut of bed to chairWork on strength, bed mobility, transfers, gaitIncrease enduranceFall precautionsMonitor p.o. intake and nutritionStrict decubitus precautionsMonitor anemiaAdvance therapies as toleratedPt currently on TPNOn BIPAP VS teleflex 60L 70%- wean as toleratedDiuresising increased - monitor strict I OsMonitor patient in CVICU Will eventually need IRF when medically ready. CLOF:ORE AWAKE TODAY BUT STILL W ELEVATED CO2. ON BIPAP MOST OF THE MORNING. Pt VERY WEAK W SIT TO STAND AND DESATS ON 15L VIA NC. PLACED BACK ON BIPAP AFTER PT SESSION. SPO2 IMPROVED TO 94% WITH BIPAP TT;36mins, reviewing chart, notes, labs, meds, therapy notes, discussed medical mgt, and rehab poc, goals. Answered all questions Rehab attestation:Face to face exam completed. Treatment plan discussed with patient. at 1646 RPT #:[id number] OF REPORTPRProgress [id number]:06:00G.[id number] e for patient xofmCDZXYJIGOSLZSM0936-44-91D59:47:03 ACL 2021-12-24 10:58:00 [id number] 7cPj4jbjD6y/ 6cB70AQ+hu6Bdt+qTjhdYQZN8666-11-04W25:58:00 [facility]Ne[facility] Progress NoteREPORT#:[id number] REPORT STATUS: SignedDATE:12/24/21 TIME: 1058 PATIENT: KIAH GILES UNIT #: [id number]#: [id number] [address] [birth year] AGE: 76 SEX: F ATTEND: Jeffry More [facility] AUTHOR: Suki Fuchs MD * ALL edits or amendments must be made on the electronic/computer document * SubjectiveChief complaint:chest painHPI:This is a 76-year-old female who has past medical history of hypertension, diabetes, coronary artery disease, atrial fibrillation who presented with worsening shortness of breath and on further work-up was 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 She was withnormal kidney function prior to surgery and after her surgery she began to develop oliguria. Her procedure was done without any complications but after her surgery she did require pressor support for hypotension and she was intubated for respiratory acidosis and hypoxia and she was treated with vancomycin for infection treatment. When she was seen this morning she continued to have hypotension and her heart rate was paced by her permanent pacemaker and her urine output was 20 to 30/h. Her family at bedside denied anyhistory of kidney disease, kidney stone, chronic NSAID use or any urinary complaints. They also endorse that her blood pressure and diabetes were mostly controlled. 12/24Appearing comfortable, not in any distress,on BIPAP this morning. Objective GeneralVS/I O:Vital Signs: Date Time Temp Pulse Resp B/P B/P Pulse O2 O2 Flow FiO2 Mean Ox Delivery Rate 12/24 1957 [...] 103/38 60 97 12/24 1000 183/77 110 10/12 0904 137/76 96 12/24 0827 73 100 [...] scale Measurement Method PATIENT WEIGHT: Weight (lb): 266Weight (oz): 1.57Weight (kg): 120.700 Physical ExamGeneral appearance: alert, awake, orientedHead/eyes: atraumatic, normocephalicENT: ET tubeNeck: no JVD, no lymphadenopathyCardiovascular: normal heart sounds, regular rate and rhythmRespiratory: aerating well, clear to auscultationAbdomen: soft, no pulsatile massGenitourinary: urinary catheterExtremities: pitting edema, no gangrene, no swelling Treatment Prophylaxis Treatment ProphylaxisDrain(s)/tube(s): Drain(s)/tube(s): chest (x3) Diagnosis, Assessment PlanFree Text A P:This is a 76-year-old female known to have hypertension, diabetes, atrial fibrillation, s/p permanent pacemaker and history of ablation presenting with shortness of breath and 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 Nephrology is following for: 1. Acute kidney injury: Most likely it is prerenal (cardiorenal), she has been hypotensive postoperatively with requirement for pressor support and inotropic support. Plan is to increase inotropic support or pressor support to bring meanarterial pressure above 65 and give albumin with Lasix to see if it helps him diurese. If he does not respond to higher dose Lasix with albumin then I will consider starting him on CRRT to prevent hyper volemia. 2. Hypervolemia: Plan is to give Lasix and if he does not respond to start him on CRRT for extra fluid removal. 3. His electrolytes were all reviewed to be in normal range plan was to monitorand replace as needed. 4. He was receiving vancomycin so plan was to monitor vancomycin trough levels to prevent ATN. . Acute kidney injury: Most likely it is prerenal (cardiorenal), she has been hypotensive postoperatively with requirement for pressor support and inotropic support. She responded to Lasix after her blood pressure improved with higher dose vasopressin and she was given albumin. Plan was to continue twice a day Lasix and albumin for hypervolemia. 2. Hypervolemia: Plan is to give Lasix with albumin twice daily and increase dose if needed. 3. His electrolytes were all reviewed to be in normal range plan was to monitorand replace as needed. 4. He was receiving vancomycin so plan was to monitor vancomycin trough levels to prevent ATN. 12/22 1. Acute kidney injury: Most likely it is prerenal (cardiorenal), she has been hypotensive postoperatively with requirement for pressor support and inotropic support. She responded to Lasix after her blood pressure improved with higher dose vasopressin and she was given albumin. Plan was to continue Lasix and albumin for hypervolemia.Plan to increase dose to reach goal of 1 L negative Q12H. 2. Hypervolemia: Plan is to give Lasix with albumin and increase dose if needed. 3. His electrolytes were all reviewed to be in normal range plan was to monitorand replace as needed. 4. He was receiving vancomycin so plan was to monitor vancomycin trough levels to prevent ATN. 12/23 1. Acute kidney injury: Most likely it is prerenal (cardiorenal), she has been hypotensive postoperatively with requirement for pressor support and inotropic support. She responded to Lasix after her blood pressure improved with higher dose vasopressin and she was given albumin. Plan was to continue Lasix and albumin for hypervolemia.Plan to increase dose to reach goal of 1 L negative Q12H. 2. Hypervolemia: Plan is to give Lasix with albumin and increase dose if needed. 3. Her electrolytes were all reviewed to be in normal range plan was to monitor and replace as needed. 4. She was receiving vancomycin so plan was to monitor vancomycin trough levelsto prevent ATN. 5/ Metabolic alkalosis secondary to diuretics : Plan to give acetazoleamide if worsening. 12/24 1. Acute kidney injury: Resolved, she is responding to lasix. 2. Hypervolemia: Plan to continue lasix as tolerated.Today it was held for metabolic alkalosis. 3. Her electrolytes were all reviewed to be in normal range plan was to monitor and replace as needed. 4. She was receiving vancomycin so plan was to monitor vancomycin trough levelsto prevent ATN. 5/ Metabolic alkalosis secondary to diuretics : Plan to give acetazoleamide if worsening. Consultants: cardiology, cardiovascular surgery at 2122 RPT #:[id number] OF REPORTPRProgress [id number]:58:00G.[id number] e for patient nxjmVDSCEYUZMZSDLW8660-02-17I90:22:46 [facility] 2021-12-23 19:31:00 [id number]/WAvjhr +h6lwGcWmadA [id number]6I50:31:[address] [facility] ([facility])Nephrology Progress NoteREPORT#:[id number] REPORT STATUS: SignedDATE:12/23/21 TIME: 1930 PATIENT: KIAH GILES UNIT #: [id number]#: [id number] [address] [birth year] AGE: 76 SEX: F ATTEND: Jeffry More AUTHOR: Suki Fuchs MD * ALL edits or amendments must be made on the electronic/computer document * SubjectiveChief complaint:chest painHPI:This is a 76-year-old female who has past medical history of hypertension, diabetes, coronary artery disease, atrial fibrillation who presented with worsening shortness of breath and on further work-up was 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 She was withnormal kidney function prior to surgery and after her surgery she began to develop oliguria. Her procedure was done without any complications but after her surgery she did require pressor support for hypotension and she was intubated for respiratory acidosis and hypoxia and she was treated with vancomycin for infection treatment. When she was seen this morning she continued to have hypotension and her heart rate was paced by her permanent pacemaker and her urine output was 20 to 30/h. Her family at bedside denied anyhistory of kidney disease, kidney stone, chronic NSAID use or any urinary complaints. They also endorse that her blood pressure and diabetes were mostly controlled. ppearing comfortable, not in any distress,on oxygen through nasal canula. ppearing comfortable, not in any distress,on oxygen through nasal canula. Objective GeneralVS/I O:Vital Signs: Date Time Temp Pulse Resp B/P B/P Pulse O2 O2 Flow FiO2 Mean Ox Delivery Rate 12/23 1906 [...] 36.2 72 26 174/72 103 95 12/23 07 36.3 75 24 186/77 111 91 12/23 0410 73 18 93 60 70 12/23 0125 72 18 96 60 75 12/22 2200 37.1 12/22 2200 High flow 70 nasal cannula 24 hour I O ending at 0700: 12/23 0700 12/22 1900 Intake Total 1960.00 420 Output Total 1060 900 Balance 900.00 -480 Intake, IV 1710.00 Intake, Oral 250 420 Output, Chest 70 Tube Drainage Output, Urine 1060 830 Patient 125.8 kg Weight Weight Bed scale Measurement Method PATIENT WEIGHT: Weight (lb): 277Weight (oz): 5.46Weight (kg): 125.800 Physical ExamGeneral appearance: alert, awakeHead/eyes: atraumatic, normocephalicENT: ET tubeNeck: no JVD, no lymphadenopathyCardiovascular: normal heart sounds, regular rate and rhythmRespiratory: aerating well, clear to auscultationAbdomen: soft, no pulsatile massGenitourinary: urinary catheterExtremities: pitting edema, no gangrene, no swelling Treatment Prophylaxis Treatment ProphylaxisDrain(s)/tube(s): Drain(s)/tube(s): chest (x3) Diagnosis, Assessment PlanFree Text A P:This is a 76-year-old female known to have hypertension, diabetes, atrial fibrillation, s/p permanent pacemaker and history of ablation presenting with shortness of breath and 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 Nephrology is following for: 1. Acute kidney injury: Most likely it is prerenal (cardiorenal), she has been hypotensive postoperatively with requirement for pressor support and inotropic support. Plan is to increase inotropic support or pressor support to bring meanarterial pressure above 65 and give albumin with Lasix to see if it helps him diurese. If he does not respond to higher dose Lasix with albumin then I will consider starting him on CRRT to prevent hyper volemia. 2. Hypervolemia: Plan is to give Lasix and if he does not respond to start him on CRRT for extra fluid removal. 3. His electrolytes were all reviewed to be in normal range plan was to monitorand replace as needed. 4. He was receiving vancomycin so plan was to monitor vancomycin trough levels to prevent ATN. . Acute kidney injury: Most likely it is prerenal (cardiorenal), she has been hypotensive postoperatively with requirement for pressor support and inotropic support. She responded to Lasix after her blood pressure improved with higher dose vasopressin and she was given albumin. Plan was to continue twice a day Lasix and albumin for hypervolemia. 2. Hypervolemia: Plan is to give Lasix with albumin twice daily and increase dose if needed. 3. His electrolytes were all reviewed to be in normal range plan was to monitorand replace as needed. 4. He was receiving vancomycin so plan was to monitor vancomycin trough levels to prevent ATN. 12/22 1. Acute kidney injury: Most likely it is prerenal (cardiorenal), she has been hypotensive postoperatively with requirement for pressor support and inotropic support. She responded to Lasix after her blood pressure improved with higher dose vasopressin and she was given albumin. Plan was to continue Lasix and albumin for hypervolemia.Plan to increase dose to reach goal of 1 L negative Q12H. 2. Hypervolemia: Plan is to give Lasix with albumin and increase dose if needed. 3. His electrolytes were all reviewed to be in normal range plan was to monitorand replace as needed. 4. He was receiving vancomycin so plan was to monitor vancomycin trough levels to prevent ATN. 12/23 1. Acute kidney injury: Most likely it is prerenal (cardiorenal), she has been hypotensive postoperatively with requirement for pressor support and inotropic support. She responded to Lasix after her blood pressure improved with higher dose vasopressin and she was given albumin. Plan was to continue Lasix and albumin for hypervolemia.Plan to increase dose to reach goal of 1 L negative Q12H. 2. Hypervolemia: Plan is to give Lasix with albumin and increase dose if needed. 3. Her electrolytes were all reviewed to be in normal range plan was to monitor and replace as needed. 4. She was receiving vancomycin so plan was to monitor vancomycin trough levelsto prevent ATN. 5/ Metabolic alkalosis secondary to diuretics : Plan to give acetazoleamide if worsening. Consultants: cardiology, cardiovascular surgery at 2135 RPT #:[id number] OF REPORTPRProgress [id number]:31:00G.[id number] e for patient jgujNYKNUHRLBLGXNM7987-79-14J52:37:57 [facility] ACL 2021-12-23 14:12:00 [id number] WhC3ab4MoVZG +8z0KxlXTaUQ5j41i49ehAes5000-31-95G92:12:[address] [facility] ([facility])Critical Care Progress NoteREPORT#:[id number] REPORT STATUS: SignedDATE:12/23/21 TIME: 1411 PATIENT: KIAH GILES UNIT #: [id number]#: [id number] [address] [birth year] AGE: 76 SEX: F ATTEND: Jeffry More MDADM AUTHOR: Jd Alva MD * ALL edits or amendments must be made on the electronic/computer document * SubjectiveChief complaint:CABG/MVRHPI:76-year-old morbidly obese female with history of HTN, HL, IDDM, smoking, RONA onCPAP and home O2 as needed, macular degeneration, Crohn's disease on immunosuppressant medications, and chronic Afib s/p ablation and PPM (on Xarelto), who was admitted recently with heart failure symptoms. Patient underwent elective cardiac cath that showed severe multivessel coronary artery disease notsuitable for percutaneous intervention. 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 She went for surgical revascularization today and preop JORDEN revealed severe mitral regurgitation. After discussing new findings with family, patient underwent MVR (31 Magna valve), CABG x 1 (ROBERTS-LAD), ILAA and pericardectomy on 12/19/2021. Has EF of 45%. Crystalloid 1 L, urine output 700, Cell Saver 700. She is a-paced at baseline. Surgery went well and patient was transferred to CVICU postop in a stable surgical condition. She is currentlyintubated on 2 mics of epinephrine, 2 mics of Levophed and insulin drip. CI 3.0,SvO2 in 60%s, CVP 15 and PAP in 60s. Comments:on Teleflex 60L/70%, bipap overnightOOB to the chair this amNGT placed for nausea, pulled by pttolerating PO, on TPNUOP 1L, on diuresis Objective GeneralVS/I OLast Documented: Result Date Time Pulse Ox 83 12/23 1300 B/P 138/64 12/23 1300 B/P Mean 92 12/23 1300 Pulse 73 12/23 1300 Resp 33 12/23 1300 Temp 97.7 12/23 1201 FiO2 60 12/23 0840 O2 Flow Rate 60 12/23 0410 O2 Delivery High flow nasal cannula 12/22 2200 24 hour I O ending at 0700: 12/23 0700 12/22 1900 Intake Total 1960.00 420 Output Total 1060 900 Balance 900.00 -480 Intake, IV 1710.00 Intake, Oral 250 420 Output, Chest 70 Tube Drainage Output, Urine 1060 830 Patient 125.8 kg Weight Weight Bed scale Measurement Method PATIENT WEIGHT: Weight (lb): 277Weight (oz): 5.46Weight (kg): 125.800 Medications:Active Meds + DC'd Last 24 HrsAspirin (ASPIRIN) 81 MG DAILY PO Clopidogrel Bisulfate (Plavix) 75 MG DAILY PO Cyanocobalamin (Vitamin B-12 500 mcg tab) 500 MCG DAILY PO Ferrous Sulfate (FERROUS SULFATE) 300 MG DAILY PO Metolazone (metOLazone) 5 MG DAILY PO Polyethylene Glycol (MIRALAX) 17 GM DAILY PO Lansoprazole (PREVACID) 30 MG DAILY@0600 PO Amino Acids/Electrolytes/Dextrose (TPN ADULT- CENTRAL 1000ML) 960 ML 2200 IV Fat Emulsion (FAT EMULSION 20% (INTRALIPID)) 250 ML 2200 IV Atorvastatin Calcium (LIPITOR) 40 MG 2100 FEED-TUBE (DC) Atorvastatin Calcium (LIPITOR) 40 MG 2100 PO Docusate Sodium (DOCUSATE SODIUM) 100 MG BID PO Metoprolol Tartrate (LOPRESSOR) 12.5 MG Q12HR PO Senna (SENOKOT) 17.6 MG BEDTIME FEED-TUBE (DC) Senna (SENOKOT) 17.6 MG BEDTIME PO Amiodarone HCl (CORDARONE) 200 MG TID PO Magnesium Hydroxide (MILK OF MAGNESIA) 30 ML ONCE ONE PO (DC) Acetaminophen (TYLENOL) 650 MG Q4H PRN PRN PO Tramadol HCl (ULTRAM) 25 MG Q4H PRN PRN PO Tramadol HCl (ULTRAM) 50 MG Q4H PRN PRN PO Insulin Human Regular (HumuLIN R) 100 UNIT ASDIR IV (CKD) Sodium Chloride (SODIUM CHLORIDE 0.9%) 99 MLLactulose (LACTULOSE) 20 GM ONCE ONE PO (DC) Magnesium Citrate (MAGNESIUM CITRATE) 240 ML ONCE ONE PO (CAN) Amiodarone HCl (CORDARONE) 200 MG TID FEED-TUBE (DC) Aspirin (ASPIRIN) 81 MG DAILY FEED-TUBE (DC) Clopidogrel Bisulfate (Plavix) 75 MG DAILY FEED-TUBE (DC) Cyanocobalamin (Vitamin B-12 500 mcg tab) 500 MCG DAILY FEED-TUBE (DC) Docusate Sodium (DOCUSATE SODIUM) 100 MG BID FEED-TUBE (DC) Ferrous Sulfate (FERROUS SULFATE) 300 MG DAILY FEED-TUBE (DC) Gabapentin (NEURONTIN) 200 MG BID 9A 5P FEED-TUBE Metolazone (metOLazone) 5 MG DAILY FEED-TUBE (DC) Metoprolol Tartrate (LOPRESSOR) 12.5 MG Q12HR FEED-TUBE (DC) Polyethylene Glycol (MIRALAX) 17 GM DAILY FEED-TUBE (DC) Lansoprazole (PREVACID) 30 MG DAILY@0600 FEED-TUBE (DC) Albumin Human (ALBUMINAR 5% 12.5GM/250ML) 250 ML ONCE ONE IV (CAN) Furosemide (LASIX 40 mg/4 mL INJECTION) 60 MG Q8H IV (CKD) Acetaminophen (TYLENOL) 650 MG Q4H PRN PRN FEED-TUBE (DC) Tramadol HCl (ULTRAM) 25 MG Q4H PRN PRN FEED-TUBE (DC) Tramadol HCl (ULTRAM) 50 MG Q4H PRN PRN FEED-TUBE (DC) Albumin Human (ALBUMINAR 25%) 25 GM Q8H IV Metolazone (metOLazone) 5 MG DAILY PO (DC) Fat Emulsion (FAT EMULSION 20% (INTRALIPID)) 100 ML 2200 IV Furosemide (LASIX 40 mg/4 mL INJECTION) 40 MG Q8H IV (DC) Insulin Glargine (Lantus/Semglee) 10 UNIT BID SUBQ (DC) Cyanocobalamin (Vitamin B-12 500 mcg tab) 500 MCG DAILY PO (DC) Ferrous Sulfate (FERROUS SULFATE) 325 MG DAILY PO (DC) Amino Acids/Electrolytes/Dextrose (TPN ADULT- CENTRAL 1000ML) 840 ML 2200 IV Acetylcysteine (MUCOMYST FOR RT) 200 MG RTQ6H NEB Albuterol/Ipratropium (DUONEB) 3 ML RTQ6H NEB Albumin Human (ALBUMINAR 5% 12.5GM/250ML) 12.5 GM Q12H IV (DC) Bisacodyl (DULCOLAX) 10 MG ONCE PRN RECTAL Insulin Human Lispro (HUMALOG) 0 Q6HR SUBQ (DC) Dextrose/Water (Dextrose 10% 1,000 mL) 1,000 ML ASDIR PRN IV Miscellaneous Information (TPN (Central) PHARMACY TO DOSE) 1 EACH ASDIR IV Clopidogrel Bisulfate (Plavix) 75 MG DAILY PO (DC) Polyethylene Glycol (MIRALAX) 17 GM DAILY PO (DC) Dopamine HCl/Dextrose (DOPamine 400MG/D5W 250ML) 250 ML ASDIR IV Pantoprazole (PROTONIX) 40 MG DAILY@0600 PO (DC) Docusate Sodium (COLACE) 100 MG BID PO (DC) Metoprolol Tartrate (LOPRESSOR) 12.5 MG Q12HR PO (DC) Sennosides (Senna Lax 8.6 MG TABLET) 17.2 MG BEDTIME PO (DC) Milrinone Lactate/Dextrose (MILRINONE 20MG/D5W 100ML) 100 ML ASDIR IV (CKD) Vasopressin (VASOSTRICT 20 Unit/NS 100ML) 100 ML [...] (TYLENOL) 650 MG Q4H PRN PRN PO (DC) Acetaminophen (TYLENOL) 650 MG Q4H PRN PRN RECTAL Calcium Chloride (CALCIUM CHLORIDE) 1 GM ASDIR PRN IV Dextrose/Water (DEXTROSE 10% IN WATER) 125 ML ASDIR PRN IV (CKD) Dextrose/Water (DEXTROSE 10% IN WATER) 250 ML ASDIR PRN IV (CKD) Epinephrine (ADRENALIN CHLORIDE) 5 MG ASDIR IV Dextrose/Water (DEXTROSE 5% WATER) 245 MLGlucagon (GLUCAGON) 1 MG ASDIR PRN IM Magnesium Sulfate (MAGNESIUM SULFATE 4GM/SWFI 100ML) 100 ML ASDIR PRN IV Magnesium Sulfate (MAGNESIUM SULFATE 2GM/SWFI 50ML) 50 ML ASDIR PRN IV Magnesium Sulfate/Dextrose (MAGNESIUM SULFATE 1GM/D5W 100ML) 100 ML ASDIR PRN IV Nitroglycerin/Dextrose (NITROGLYCERIN 50,000MCG/D5W 250ML) 250 ML ASDIR IV Norepinephrine Bitartrate (NOREPINEPHRINE 8 MG/NS 250 ML) 250 ML TITRATE IV Potassium Chloride (KCL 20MEQ/SWFI 100ML) 100 ML ASDIR PRN IV Sodium Bicarbonate (SODIUM BICARBONATE) 50 MEQ ASDIR PRN IV Sodium Chloride (SODIUM CHLORIDE 0.9%) 1,000 ML .Q20H IV Sodium Chloride (SODIUM CHLORIDE 0.9%) 250 ML Q24H IV Atorvastatin Calcium (LIPITOR) 40 MG 2100 PO (DC) Ceftriaxone Sodium (ROCEPHIN 1000MG VIAL) 1,000 MG Q24H IV (DC) Sodium Chloride (SODIUM CHLORIDE) 10 MLOndansetron HCl (ZOFRAN) 4 MG Q6H PRN PRN IV Vancomycin HCl (VANCOMYCIN HCL) 1,750 MG PREOP ONCALL IV (CKD) Sodium Chloride (NS 0.9%) 500 ML ResultsFindings/data:Laboratory Tests 12/23 12/23 12/22 7468 8753 2751 Blood Gas Puncture Site Central Line R Radial Central Line O2 Saturation (90 - 100 %) 90.0 [...] (11.0 - 15.0 G/DL) 9.0 L 11.2 11.8 Martin Test Positive N/A VBG pH (7.33 [...] Calcium (1.12 - 1.32 MMOL/L) 1.40 H 1.38 H 1.35 H Lactic Acid (0.9 - [...] 326 H 12/23 12/23 12/23 12/22 12/22 040 0357 0032 2230 2141 Chemistry Sodium (134 [...] MG/DL) 236 H 371 H Laboratory Tests 12/24 399 Hematology WBC (4.5 - 11.0 x10 3/uL) [...] (Auto) (14.0 - 32.0 %) 3.0 L Col[place] % (Auto) (4.8 - 9.0 %) 9.2 H Eos % (Auto) (0.3 - 3.7 %) 0.5 Baso % (Auto) (0.0 - 2.0 %) 0.2 Neut # (Auto) (2.0 - 7.6 x10 3/uL) 5.42 Lymph # (Auto) (1.0 - 3.8 x10 3/uL) 0.19 L [place] # (Auto) (0.1 - 0.8 x10 3/uL) 0.58 Eos # (Auto) (0.0 - 0.2 x10 3/uL) 0.03 Baso # (Auto) (0.0 - 0.2 x10 3/uL) 0.01 Abs Immat Gran (auto) (0.00 - 0.03 x10 3/uL) 0.07 H Add Manual Diff NO Immature Gran % (0.0 - 2.0 %) 1.1 Nucleated RBC % (0 - 0 %) 0.5 H Nucleated RBCs # (Man) (0.0 - 0.1 x10 3/uL) 0.03 Laboratory Tests 12/23/21 0400:[Embedded Image Not Available] 12/22/21 2230:[Embedded Image Not Available] Radiology dataRecent Impressions:RADIOLOGY - XR ABDOMEN 1V (KUB) 12/22 2133 Report Impression - Status: SIGNED Entered: 12/22/20212154 IMPRESSION: Nonspecific lower abdomen small bowel distention. If symptoms persist or worsen, follow-up imaging may be performed to better assess for small bowel obstructionImpression By: [email or web address] - Anoop Lilly M.D.RADIOLOGY - XR ABDOMEN 1V (KUB) 12/23 0055 Report Impression - Status: SIGNED Entered: 12/23/2021 0122 IMPRESSION: 1. A nasogastric tube terminates overlying the stomach. 2. Dilated small bowel loops in the left lower quadrant. Impression By: [email or web address] Carlos HudsonDRADIOLOGY - XR CHEST 1 V 12/23 0655 Report Impression - Status: SIGNED Entered: 12/23/2021 0807 IMPRESSION: Stable postoperative chest, following removal of bilateral chest tubes. Impression By: [email or web address] - Jesus Galdamez M.D. Free Text Obj NotesFree Text Obj Notes:General appearance: elderly female in no acute distress, interactiveHEENT: atraumatic, normocephalic, moist mucosal membranesNeck: full range of motion, supple/no meningismusCardiovascular: S1S2 regular rate and rhythm, a-pacedRespiratory: symmetric expansion, no acute respiratory distressAbdomen: soft, obese, non-tender, no distention, no guardingGenitourinary: [place] with clear urineExtremities: pedal pulses palpable, moves all, no clubbing, no cyanosis, LE edemaMusculoskeletal: normal inspection, no muscle spasmNeuro/[employer]ION [employer]: Alert and oriented, intermittently delirious, CNII-XII grossly intact, no motor deficitsSkin: dry, intact and clean surgery dressing Diagnosis, Assessment PlanProblem list/A P: 1. S/P MVR (mitral valve replacement) 2. S/P CABG x 1 3. Postoperative pulmonary dysfunction after cardiac surgery 4. Severe mitral regurgitation 5. CAD (coronary artery disease) 6. CKD (chronic kidney disease) 7. Immunosuppressed status 8. RONA on CPAP 9. Chronic a-fib 10. Crohn disease Free text A P:76-year-old morbidly obese female with history of HTN, HL, IDDM, smoking, RONA onCPAP and home O2 as needed, macular degeneration, Crohn's disease on immunosuppressant medications, and chronic Afib s/p ablation and PPM (on Xarelto), who was admitted recently with heart failure symptoms. Patient underwent elective cardiac cath that showed severe multivessel coronary artery disease notsuitable for percutaneous intervention. 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 She went for surgical revascularization today and preop JORDEN revealed severe mitral regurgitation. After discussing new findings with family, patient underwent MVR (31 Magna valve), CABG x 1 (ROBERTS-LAD), ILAA and pericardectomy on 12/19/2021. Has EF of 45%. Crystalloid 1 L, urine output 700, Cell Saver 700. She is a-paced at baseline. Surgery went well and patient was transferred to CVICU postop in a stable surgical condition. She is currentlyintubated on 2 mics of epinephrine, 2 mics of Levophed and insulin drip. CI 3.0,SvO2 in 60%s, CVP 15 and PAP in 60s. Neuro: appears intact, keep off sedation, multimodal pain control, minimize narcotics useRespiratory: sats well on minimal vent settings, CPAP trial as tolerated, plan for extubation, may need bipap, obtain serial ABGs, CXR reviewedCardiovascular: Hemodynamically unstable on vasopressors, attempt to wean, monitor PAP and hemodynamic parameters, keep CTs to suctionRenal: strict I/Os, monitor Cr and electrolytes, mild lactic acidosis, trend LA,resuscitate as needed, home diuretics on holdGI: bedside swallow then oral diet after extubation, keep NPO if required bipap,bowel regimenID: trend WBC, continue periop antibiotics per protocol, low threshold for infection work-upHem: acute postop anemia and thrombocytopenia, monitor Hgb and CTs output, no evidence of active bleed, transfuse as needed, holding off on immunosuppressive medsEndo: Blood glucose control with insulin gtt per protocolMisc: PTOT consult, DVT and GI ppx with DAPT and PPI (home med) ppears neuro intact, multimodal pain control, monitor for CO2 narcosis, avoid narcoticsExtubated successfully, required BiPAP for hypoxia and hypercapnia, attempt to wean, obtain serial ABGs, CXR reviewed, has pulmonary edemaImproved hemodynamics, off Levophed/epinephrine, continue vasopressin, inotropeswith milrinone, monitor hemodynamic parameters and wean per CT surgeryMild MARCELLO, Cr uptrending with marginal urine output, started dopamine dripKeep NPO for now while on BiPAP, bowel regimen, monitor LFTsNo fevers or leukocytosis, given periop antibiotics, patient is immunosuppressedHemoglobin and platelets trending down, no evidence of active bleed, monitor CTsoutputBlood glucose control with insulin dripPT/OT and out of bed to chair if toleratedDVT and GI prophylaxis with DAPT and PPI ppears neuro intact, multimodal pain control, monitor for CO2 narcosis, avoid narcoticsBiPAP for hypercapnia, attempt to wean, keep O2 sats >90%, obtain serial ABGs, CXR reviewedHD stable off vasopressors and inotropes, turn off vasopressin, monitor for arrhythmiaMild MARCELLO, Cr trending down, improved urine output with diuresis, off dopamine drip, renal on boardKeep NPO while on BiPAP, otherwise, will start oral diet, start TPN per CT surgeryNo fevers or leukocytosis, complete antibiotic course for UTIHemoglobin and platelets appear stable, no evidence of active bleed, monitor CTsoutputBlood glucose control with sliding scale insulinPT/OT and out of bed to chair if toleratedDVT and GI prophylaxis with DAPT and PPI neuro intact, multimodal pain control, monitor for CO2 narcosis, avoid narcoticsBiPAP for hypercapnia, sats well on Teleflex, keep O2 sats >90%, obtain serial ABGs, CXR reviewed, may need right sided thoracentesis, obtain right chest ultrasoundRemains HD stable off vasopressors and inotropes, no more reported arrhythmiaMild MARCELLO, Cr trending down, improved urine output, continue diuresis per renalOral diet as tolerated if remains off BiPAP, bowel regimen, continue TPN per CT surgeryNo fevers or leukocytosis, complete antibiotic course for UTIHemoglobin and platelets appear stable, no evidence of active bleed, remove chest tubesBlood glucose control with sliding scale insulinPT/OT and OOB as tolerated, obtain IPRDVT and GI prophylaxis with DAPT and PPI 12/23Rem neuro intact, multimodal pain control, monitor for CO2 narcosis and ICU deliriumBiPAP for hypercapnia, wean Teleflex to keep O2 sats >90%, obtain VBG as needed,CXR reviewed, improved right-sided pleural effusion, holding off on thoracentesisRemains HD stable off vasopressors and inotropes, no more reported arrhythmia Mild MARCELLO resolved, good urine output, increase diuresis per renal, add DiamoxPO challenge if remains off BiPAP, KUB noted, hold off on NGT, stop TPN, repletehypokalemiaNo fevers or leukocytosis, complete antibiotic course for UTI, has yeast, removeFoleyAnemia and thrombocytopenia, Hgb and plt appear stable, no evidence of active bleedingBlood glucose uncontrolled, restart insulin dripPT/OT and OOB as tolerated, IPR consultedDVT and GI prophylaxis with DAPT and PPI Consultants: cardiology, cardiovascular surgeryPlan discussed with: patient, family, consultants, nurse, interdisc care team, pharmacy/pharmacistCritical care time: Minutes: 37 at 0621 RPT #:[id number] OF REPORTPRProgress [id number]:12:00G.[id number] e for patient [id number]:21:55 HC ACL 2021-12-23 12:52:00 [id number] PlV4orps7OcV abW9twybo/V+H/HSHsR/cyeC8067-61-23E37:52:[address] [facility] ([facility])Cardiology Progress NoteREPORT#:[id number] REPORT STATUS: SignedDATE:12/23/21 TIME: 1252 PATIENT: KIAH GILES UNIT #: [id number]#: [id number] [address] [birth year] AGE: 76 SEX: F ATTEND: Jeffry Moer AUTHOR: Isabella Clemens AGACNP * ALL edits or amendments must be made on the electronic/computer document * SubjectiveComments:Awake and alert. On Teleflex. Volume overloaded. Objective GeneralVS/I O:24 hour I O ending at 0700: 12/23 0700 10 1900 Intake Total 1960.00 420 Output Total [...] 143/76 102 92 PATIENT WEIGHT: Weight (lb): 277Weight (oz): 5.46Weight (kg): 125.800 Medications:Active Meds + DC'd Last 24 HrsAspirin (ASPIRIN) 81 MG DAILY PO Clopidogrel Bisulfate (Plavix) 75 MG DAILY PO Cyanocobalamin (Vitamin B-12 500 mcg tab) 500 MCG DAILY PO Ferrous Sulfate (FERROUS SULFATE) 300 MG DAILY PO Metolazone (metOLazone) 5 MG DAILY PO Polyethylene Glycol (MIRALAX) 17 GM DAILY PO Lansoprazole (PREVACID) 30 MG DAILY@0600 PO Amino Acids/Electrolytes/Dextrose (TPN ADULT- CENTRAL 1000ML) 960 ML 2200 IV Fat Emulsion (FAT EMULSION 20% (INTRALIPID)) 250 ML 2200 IV Atorvastatin Calcium (LIPITOR) 40 MG 2100 FEED-TUBE (DC) Atorvastatin Calcium (LIPITOR) 40 MG 2100 [...] (CKD) Sodium Chloride (SODIUM CHLORIDE 0.9%) 99 MLLactulose (LACTULOSE) 20 GM ONCE ONE PO (DC) Magnesium Citrate (MAGNESIUM CITRATE) 240 ML ONCE ONE PO (CAN) Amiodarone HCl (CORDARONE) 200 MG TID FEED-TUBE (DC) Aspirin (ASPIRIN) 81 MG DAILY FEED-TUBE (DC) Clopidogrel Bisulfate (Plavix) 75 MG DAILY FEED-TUBE (DC) Cyanocobalamin (Vitamin B-12 500 mcg tab) 500 MCG DAILY FEED-TUBE (DC) Docusate Sodium (DOCUSATE SODIUM) 100 MG BID FEED-TUBE (DC) Ferrous Sulfate (FERROUS SULFATE) 300 MG DAILY FEED-TUBE (DC) Gabapentin (NEURONTIN) 200 MG BID 9A 5P FEED-TUBE Metolazone (metOLazone) 5 MG DAILY FEED-TUBE (DC) Metoprolol Tartrate (LOPRESSOR) 12.5 MG Q12HR FEED-TUBE (DC) Polyethylene Glycol (MIRALAX) 17 GM DAILY FEED-TUBE (DC) Lansoprazole (PREVACID) 30 MG DAILY@0600 FEED-TUBE (DC) Albumin Human (ALBUMINAR 5% 12.5GM/250ML) 250 ML ONCE ONE IV (CAN) Furosemide (LASIX 40 mg/4 mL INJECTION) 60 MG Q8H IV (CKD) Acetaminophen (TYLENOL) 650 MG Q4H PRN PRN FEED-TUBE (DC) Tramadol HCl (ULTRAM) 25 MG Q4H PRN PRN FEED-TUBE (DC) Tramadol HCl (ULTRAM) 50 MG Q4H PRN PRN FEED-TUBE (DC) Albumin Human (ALBUMINAR 25%) 25 GM Q8H IV Metolazone (metOLazone) 5 MG DAILY PO (DC) Fat Emulsion (FAT EMULSION 20% (INTRALIPID)) 100 ML 2200 IV Furosemide (LASIX 40 mg/4 mL INJECTION) 40 MG Q8H IV (DC) Insulin Glargine (Lantus/Semglee) 10 UNIT BID SUBQ (DC) Cyanocobalamin (Vitamin B-12 500 mcg tab) 500 MCG DAILY PO (DC) Ferrous Sulfate (FERROUS SULFATE) 325 MG DAILY PO (DC) Amino Acids/Electrolytes/Dextrose (TPN ADULT- CENTRAL 1000ML) 840 ML 2200 IV Acetylcysteine (MUCOMYST FOR RT) 200 MG RTQ6H NEB Albuterol/Ipratropium (DUONEB) 3 ML RTQ6H NEB Albumin Human (ALBUMINAR 5% 12.5GM/250ML) 12.5 GM Q12H IV (DC) Bisacodyl (DULCOLAX) 10 MG ONCE PRN RECTAL Insulin Human Lispro (HUMALOG) 0 Q6HR SUBQ (DC) Dextrose/Water (Dextrose 10% 1,000 mL) 1,000 ML ASDIR PRN IV Miscellaneous Information (TPN (Central) PHARMACY TO DOSE) 1 EACH ASDIR IV Clopidogrel Bisulfate (Plavix) 75 MG DAILY PO (DC) Polyethylene Glycol (MIRALAX) 17 GM DAILY PO (DC) Dopamine HCl/Dextrose (DOPamine 400MG/D5W 250ML) 250 ML ASDIR IV Pantoprazole (PROTONIX) 40 MG DAILY@0600 PO (DC) Docusate Sodium (COLACE) 100 MG BID PO (DC) Metoprolol Tartrate (LOPRESSOR) 12.5 MG Q12HR PO (DC) Sennosides (Senna Lax 8.6 MG TABLET) 17.2 MG BEDTIME PO (DC) Milrinone Lactate/Dextrose (MILRINONE 20MG/D5W 100ML) 100 ML ASDIR IV (CKD) Vasopressin (VASOSTRICT 20 Unit/NS 100ML) 100 ML [...] (TYLENOL) 650 MG Q4H PRN PRN PO (DC) Acetaminophen (TYLENOL) 650 MG Q4H PRN PRN RECTAL Calcium Chloride (CALCIUM CHLORIDE) 1 GM ASDIR PRN IV Dextrose/Water (DEXTROSE 10% IN WATER) 125 ML ASDIR PRN IV (CKD) Dextrose/Water (DEXTROSE 10% IN WATER) 250 ML ASDIR PRN IV (CKD) Epinephrine (ADRENALIN CHLORIDE) 5 MG ASDIR IV Dextrose/Water (DEXTROSE 5% WATER) 245 MLGlucagon (GLUCAGON) 1 MG ASDIR PRN IM Magnesium Sulfate (MAGNESIUM SULFATE 4GM/SWFI 100ML) 100 ML ASDIR PRN IV Magnesium Sulfate (MAGNESIUM SULFATE 2GM/SWFI 50ML) 50 ML ASDIR PRN IV Magnesium Sulfate/Dextrose (MAGNESIUM SULFATE 1GM/D5W 100ML) 100 ML ASDIR PRN IV Nitroglycerin/Dextrose (NITROGLYCERIN 50,000MCG/D5W 250ML) 250 ML ASDIR IV Norepinephrine Bitartrate (NOREPINEPHRINE 8 MG/NS 250 ML) 250 ML TITRATE IV Potassium Chloride (KCL 20MEQ/SWFI 100ML) 100 ML ASDIR PRN IV Sodium Bicarbonate (SODIUM BICARBONATE) 50 MEQ ASDIR PRN IV Sodium Chloride (SODIUM CHLORIDE 0.9%) 1,000 ML .Q20H IV Sodium Chloride (SODIUM CHLORIDE 0.9%) 250 ML Q24H IV Atorvastatin Calcium (LIPITOR) 40 MG 2100 PO (DC) Ceftriaxone Sodium (ROCEPHIN 1000MG VIAL) 1,000 MG Q24H IV (DC) Sodium Chloride (SODIUM CHLORIDE) 10 MLOndansetron HCl (ZOFRAN) 4 MG Q6H PRN PRN IV Vancomycin HCl (VANCOMYCIN HCL) 1,750 MG PREOP ONCALL IV (CKD) Sodium Chloride (NS 0.9%) 500 ML Status post:CABG, MVR, and ILAA Physical ExamGeneral appearance: obese, awakeENT: moist mucosal membranesNeck: no JVDCardiovascular: CV assessment: regular rate and rhythmRespiratory: on oxygen, rhonchiAbdomen: obeseGenitourinary: no flank pain, no urinary catheterUpper extremity: UE assessment: normal temperature, no edemaLower extremity: LE assessment: edemaNeuro/[employer]: alert, 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Skin: dry, intact ResultsFindings/Data:Laboratory Tests 12/23 12/22 12/22 0357 1750 1549 Blood Gas Puncture Site R Radial Central Line Central Line O2 Saturation (90 - 100 %) 90.0 [...] Calcium (1.12 - 1.32 MMOL/L) 1.38 H 1.35 H 1.35 H Lactic Acid (0.9 - 1.7 mmol/l) 0.8 L 0.7 L 0.6 L Respiration Rate (/min) 20 O2 Delivery Device HFNC BiPAP Vapotherm Vent Mode BIVENT FiO2 (%) 73 40 60 Tidal Volume (ml) 550 Laboratory Tests 12/23 12/23 12/23 12/23 12/23 1215 0850 0632 0400 0357Chemistry Sodium (134 - 147 mEq/L) 144 Potassium [...] (Auto) (14.0 - 32.0 %) 3.0 L [place] % (Auto) (4.8 - 9.0 %) 9.2 H Eos % (Auto) (0.3 - 3.7 %) 0.5 Baso % (Auto) (0.0 - 2.0 %) 0.2 Neut # (Auto) (2.0 - 7.6 x10 3/uL) 5.42 Lymph # (Auto) (1.0 - 3.8 x10 3/uL) 0.19 L [place] # (Auto) (0.1 - 0.8 x10 3/uL) 0.58 Eos # (Auto) (0.0 - 0.2 x10 3/uL) 0.03 Baso # (Auto) (0.0 - 0.2 x10 3/uL) 0.01 Abs Immat Gran (auto) (0.00 - 0.03 x10 3/uL) 0.07 H Add Manual Diff NO Immature Gran % (0.0 - 2.0 %) 1.1 Nucleated RBC % (0 - 0 %) 0.5 H Nucleated RBCs # (Man) (0.0 - 0.1 x10 3/uL) 0.03 Laboratory Tests 12/23 0400 Chemistry Magnesium (1.80 - 2.40 mg/dL) 2.42 H Radiology data:Recent Impressions:RADIOLOGY - XR ABDOMEN 1V (KUB) 12/22 2133 Report Impression - Status: SIGNED Entered: 12/22/2021 2155 IMPRESSION: Nonspecific lower abdomen small bowel distention. If symptoms persist or worsen, follow-up imaging may be performed to better assess for small bowel obstructionImpression By: [email or web address] - Anoop Lilly M.D.RADIOLOGY - XR ABDOMEN 1V (KUB) 12/23 0055 Report Impression - Status: SIGNED Entered: 12/23/2021 0122 IMPRESSION: 1. A nasogastric tube terminates overlying the stomach. 2. Dilated small bowel loops in the left lower quadrant. Impression By: [email or web address] - Carlos BaughDRADIOLOGY - XR CHEST 1 V 12/23 0655 Report Impression - Status: SIGNED Entered: 12/23/2021 0807 IMPRESSION: Stable postoperative chest, following removal of bilateral chest tubes. Impression By: [email or web address] - Jesus Galdamez M.D. Telemetry Interpretation:paced Diagnosis, Assessment PlanPlan discussed with: patient, daughter Free Text DxA P NotesFree Text DxA P Notes:Ms Giles is a 76 y/o Femal w/ PMHx: CAD, HLD, T2DM, RONA (CPAP at home), smoker,Crohn's disease, AF s/p ablation (on Xarelto), s/p PPM and lymphedema. Dr. Ramos is consulted for CAD s/p CABG, MVR. - CAD s/p CABG, MVR, and ILAA. post-op per CTS and critical care On Plavix, aspirin, beta-delma, statin volume management per Nephrology - Chr AF s/p PPM/ablation. Rate controlled, paced rhythm. had ILAA during bypass - HTN. BP stable - HLD. On statins. - Crohn's disease. Per IM. -MARCELLO - resolvingper Nephrology -Resp insufficiency on teleflex need more diuresis - renal managing diuretic continue supportive care at 1512 at 2254 RPT #:[id number] OF REPORTPRProgress [id number]:52:00G.[id number] e for patient [id number]:12:40 [facility] 2021-12-23 12:17:00 [id number] UTmnnzgbOskar/Laura KEBUqNyTYHsWk8Hj96nIOwCp3603-44-54A08:17:[address] [facility] ([facility])Rehab Progress NoteREPORT#:[id number] REPORT STATUS: SignedDATE:12/23/21 TIME: 1217 PATIENT: KIAH GILES UNIT #: [id number]#: [id number] [address] [birth year] AGE: 76 SEX: F ATTEND: Jeffry More AUTHOR: Alicia Pantoja NP * ALL edits or amendments must be made on the electronic/computer document * SubjectiveChief complaint:rehab follow-up FatigueShortness of breath with increased activitySignificant generalized weaknessBilateral lower extremity edemaNo GOLD/N/V/D14 systems reviewed and negative except that mentioned above. Objective GeneralVS:Vital Signs: Date Time Temp Pulse Resp B/P B/P Pulse O2 O2 Flow FiO2 Mean Ox Delivery Rate 12/23 0840 74 97 60 12/23 0410 73 18 93 60 70 12/23 0125 72 18 96 60 75 12/22 2200 98.7 12/22 2200 High flow 70 nasal cannula 12/22 1938 71 18 95 60 70 12/22 193 72 18 60 12/22 193 100 60 12/22 1800 97.3 69 25 145/65 93 100 12/22 1700 97.2 69 25 132/61 88 95 12/22 1600 97.0 75 8 130/60 86 94 12/22 1501 70 94 50 12/22 1500 97.0 69 23 137/61 88 93 12/22 1442 70 16 93 60 72 12/22 1415 97.3 72 12 93 12/22 1400 97.3 72 19 119/58 83 90 [...] 1230 76 35 PATIENT WEIGHT: Weight (lb): 277Weight (oz): 5.46Weight (kg): 125.800 Medications:Active Meds + DC'd Last 24 HrsAspirin (ASPIRIN) 81 MG DAILY PO Clopidogrel Bisulfate (Plavix) 75 MG DAILY PO Cyanocobalamin (Vitamin B-12 500 mcg tab) 500 MCG DAILY PO Ferrous Sulfate (FERROUS SULFATE) 300 MG DAILY PO Metolazone (metOLazone) 5 MG DAILY PO Polyethylene Glycol (MIRALAX) 17 GM DAILY PO Lansoprazole (PREVACID) 30 MG DAILY@0600 PO Amino Acids/Electrolytes/Dextrose (TPN ADULT- CENTRAL 1000ML) 960 ML 2200 IV Fat Emulsion (FAT EMULSION 20% (INTRALIPID)) 250 ML 2200 IV Atorvastatin Calcium (LIPITOR) 40 MG 2100 FEED-TUBE (DC) Atorvastatin Calcium (LIPITOR) 40 MG 2100 [...] (CKD) Sodium Chloride (SODIUM CHLORIDE 0.9%) 99 MLLactulose (LACTULOSE) 20 GM ONCE ONE PO (DC) Magnesium Citrate (MAGNESIUM CITRATE) 240 ML ONCE ONE PO (CAN) Amiodarone HCl (CORDARONE) 200 MG TID FEED-TUBE (DC) Aspirin (ASPIRIN) 81 MG DAILY FEED-TUBE (DC) Clopidogrel Bisulfate (Plavix) 75 MG DAILY FEED-TUBE (DC) Cyanocobalamin (Vitamin B-12 500 mcg tab) 500 MCG DAILY FEED-TUBE (DC) Docusate Sodium (DOCUSATE SODIUM) 100 MG BID FEED-TUBE (DC) Ferrous Sulfate (FERROUS SULFATE) 300 MG DAILY FEED-TUBE (DC) Gabapentin (NEURONTIN) 200 MG BID 9A 5P FEED-TUBE Metolazone (metOLazone) 5 MG DAILY FEED-TUBE (DC) Metoprolol Tartrate (LOPRESSOR) 12.5 MG Q12HR FEED-TUBE (DC) Polyethylene Glycol (MIRALAX) 17 GM DAILY FEED-TUBE (DC) Lansoprazole (PREVACID) 30 MG DAILY@0600 FEED-TUBE (DC) Albumin Human (ALBUMINAR 5% 12.5GM/250ML) 250 ML ONCE ONE IV (CAN) Furosemide (LASIX 40 mg/4 mL INJECTION) 60 MG Q8H IV (CKD) Acetaminophen (TYLENOL) 650 MG Q4H PRN PRN FEED-TUBE (DC) Tramadol HCl (ULTRAM) 25 MG Q4H PRN PRN FEED-TUBE (DC) Tramadol HCl (ULTRAM) 50 MG Q4H PRN PRN FEED-TUBE (DC) Albumin Human (ALBUMINAR 25%) 25 GM Q8H IV Metolazone (metOLazone) 5 MG DAILY PO (DC) Fat Emulsion (FAT EMULSION 20% (INTRALIPID)) 100 ML 2200 IV Furosemide (LASIX 40 mg/4 mL INJECTION) 40 MG Q8H IV (DC) Insulin Glargine (Lantus/Semglee) 10 UNIT BID SUBQ (DC) Cyanocobalamin (Vitamin B-12 500 mcg tab) 500 MCG DAILY PO (DC) Ferrous Sulfate (FERROUS SULFATE) 325 MG DAILY PO (DC) Amino Acids/Electrolytes/Dextrose (TPN ADULT- CENTRAL 1000ML) 840 ML 2200 IV Acetylcysteine (MUCOMYST FOR RT) 200 MG RTQ6H NEB Albuterol/Ipratropium (DUONEB) 3 ML RTQ6H NEB Albumin Human (ALBUMINAR 5% 12.5GM/250ML) 12.5 GM Q12H IV (DC) Bisacodyl (DULCOLAX) 10 MG ONCE PRN RECTAL Insulin Human Lispro (HUMALOG) 0 Q6HR SUBQ (DC) Dextrose/Water (Dextrose 10% 1,000 mL) 1,000 ML ASDIR PRN IV Miscellaneous Information (TPN (Central) PHARMACY TO DOSE) 1 EACH ASDIR IV Clopidogrel Bisulfate (Plavix) 75 MG DAILY PO (DC) Polyethylene Glycol (MIRALAX) 17 GM DAILY PO (DC) Dopamine HCl/Dextrose (DOPamine 400MG/D5W 250ML) 250 ML ASDIR IV Pantoprazole (PROTONIX) 40 MG DAILY@0600 PO (DC) Docusate Sodium (COLACE) 100 MG BID PO (DC) Metoprolol Tartrate (LOPRESSOR) 12.5 MG Q12HR PO (DC) Sennosides (Senna Lax 8.6 MG TABLET) 17.2 MG BEDTIME PO (DC) Milrinone Lactate/Dextrose (MILRINONE 20MG/D5W 100ML) 100 ML ASDIR IV (CKD) Vasopressin (VASOSTRICT 20 Unit/NS 100ML) 100 ML [...] (TYLENOL) 650 MG Q4H PRN PRN PO (DC) Acetaminophen (TYLENOL) 650 MG Q4H PRN PRN RECTAL Calcium Chloride (CALCIUM CHLORIDE) 1 GM ASDIR PRN IV Dextrose/Water (DEXTROSE 10% IN WATER) 125 ML ASDIR PRN IV (CKD) Dextrose/Water (DEXTROSE 10% IN WATER) 250 ML ASDIR PRN IV (CKD) Epinephrine (ADRENALIN CHLORIDE) 5 MG ASDIR IV Dextrose/Water (DEXTROSE 5% WATER) 245 MLGlucagon (GLUCAGON) 1 MG ASDIR PRN IM Magnesium Sulfate (MAGNESIUM SULFATE 4GM/SWFI 100ML) 100 ML ASDIR PRN IV Magnesium Sulfate (MAGNESIUM SULFATE 2GM/SWFI 50ML) 50 ML ASDIR PRN IV Magnesium Sulfate/Dextrose (MAGNESIUM SULFATE 1GM/D5W 100ML) 100 ML ASDIR PRN IV Nitroglycerin/Dextrose (NITROGLYCERIN 50,000MCG/D5W 250ML) 250 ML ASDIR IV Norepinephrine Bitartrate (NOREPINEPHRINE 8 MG/NS 250 ML) 250 ML TITRATE IV Potassium Chloride (KCL 20MEQ/SWFI 100ML) 100 ML ASDIR PRN IV Sodium Bicarbonate (SODIUM BICARBONATE) 50 MEQ ASDIR PRN IV Sodium Chloride (SODIUM CHLORIDE 0.9%) 1,000 ML .Q20H IV Sodium Chloride (SODIUM CHLORIDE 0.9%) 250 ML Q24H IV Atorvastatin Calcium (LIPITOR) 40 MG 2100 PO (DC) Ceftriaxone Sodium (ROCEPHIN 1000MG VIAL) 1,000 MG Q24H IV (DC) Sodium Chloride (SODIUM CHLORIDE) 10 MLOndansetron HCl (ZOFRAN) 4 MG Q6H PRN PRN IV Vancomycin HCl (VANCOMYCIN HCL) 1,750 MG PREOP ONCALL IV (CKD) Sodium Chloride (NS 0.9%) 500 ML Physical ExamGeneral appearance: obese, respiratory support (Hi flow O2), alert, awakePsych: alert, oriented x 3HEENT: anicteric, mucosal membranes moistNeck: supple, no JVDCardiovascular: regular rate rhythm, no murmurRespiratory: diminished breath sounds (bases ), on oxygen (Hi flow O2 )Abdomen: bowel sounds present, non-distended, soft, non-tenderSkin: dry, intact, no rash, incisions D/IMusculoskeletal - general: Musculoskeletal - general: swelling (BLE), moving all ext AGNeuro/CAPTAIN FIRE PREVENTION BUREAU: alert, 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, normal speech, no motor deficits, no sensory deficits ResultsFindings/Data:Laboratory Tests: 12/23 12/23 12/23 12/23 0850 0632 0400 0357Blood Gas Puncture Site R Radial O2 Saturation [...] L O2 Delivery Device HFNC FiO2 (%) 73Chemistry Sodium (134 - 147 mEq/L) 144 Potassium [...] 10.5 Magnesium (1.80 - 2.40 mg/dL) 2.42 HHematology WBC (4.5 - 11.0 x10 3/uL) 6.3 [...] (Auto) (14.0 - 32.0 %) 3.0 L Colquitt % (Auto) (4.8 - 9.0 %) 9.2 H Eos % (Auto) (0.3 - 3.7 %) 0.5 Baso % (Auto) (0.0 - 2.0 %) 0.2 Neut # (Auto) (2.0 - 7.6 x10 3/uL) 5.42 Lymph # (Auto) (1.0 - 3.8 x10 3/uL) 0.19 L [place] # (Auto) (0.1 - 0.8 x10 3/uL) 0.58 Eos # (Auto) (0.0 - 0.2 x10 3/uL) 0.03 Baso # (Auto) (0.0 - 0.2 x10 3/uL) 0.01 Abs Immat Gran (auto) (0.00 - 0.03 x10 3/uL) 0.07 H Add Manual Diff NO Immature Gran % (0.0 - 2.0 %) 1.1 Nucleated RBC % (0 - 0 %) 0.5 H Nucleated RBCs # (Man) (0.0 - 0.1 x10 3/uL) 0.03 12/23 12/22 12/22 12/22 12/22 0032 2230 2141 1750 1747Blood Gas Puncture Site Central Line ABG Hematocrit [...] Device BiPAP Vent Mode BIVENT FiO2 (%) 40Chemistry Sodium (134 - 147 mEq/L) POC Creatinine [...] - 110 MG/DL) 371 H Diagnosis, Assessment PlanFree Text A P:Status post CABG x1 Status post MVRGeneralized weaknessDeconditioningImpaired ADLs, mobility, gaitpostoperative anemiaMorbid obesityCADHLD Crohn's diseaseChronic A. fibHypoxic respiratory failure Plan:Continue PT/OTOut of bed to chairWork on strength, bed mobility, transfers, gaitIncrease enduranceFall precautionsMonitor p.o. intake and nutritionStrict decubitus precautionsMonitor anemiaAdvance therapies as toleratedPt currently on TPNOn teleflex 60L 70%- wean as toleratedDiuresising increased - monitor strict I OsMonitor patient in CVICU Will eventually need IRF when medically ready. CLOF:Sit to Stand: Maximal Assistance Pivot Transfer: Maximal Assistance Bed to/from chair: Maximal Assistance Activities Performed Cmt: FT TRAINING, BALANCE/COORDINATION EXERCISES, SAFETY/SELF-CARE EDUCATION Assistive Device Used: Walker, Rolling THROUGHOUT OT SESSION W SUPPLEMENTAL O2 SATURATION GREATER THAN 92%. NEEDS WITHIN REACH,AGREEABLE FOR EXTENDED SITTING IN BEDSIDE CHAIR, TT;36mins, reviewing chart, notes, labs, meds, therapy notes, discussed medical mgt, and rehab poc, goals. Answered all questions Rehab attestation:Face to face exam completed. Treatment plan discussed with patient. at 1347 RPT #:[id number] OF REPORTPRProgress [id number]:17:00G.[id number] e for patient qmnvPSGDPWZOLXDCWU2936-19-73N05:48:12 [facility] 2021-12-23 12:09:00 [id number] OPAMknHeyOhv mkznbmmArTzlptnorAs6DcT17526-76-55G85:09:[address] [facility] ([facility])Hospitalist Progress NoteREPORT#:[id number] REPORT STATUS: SignedDATE:12/23/21 TIME: 1209 PATIENT: KIAH GILES UNIT #: [id number]#: [id number] ROOM/BED: 2201DOB: [birth year] AGE: 76 SEX: F ATTEND: Jeffry More AUTHOR: Meryl Rosa MD * ALL edits or amendments must be made on the electronic/computer document * SubjectiveChief complaint:she is on high flow O2. on TPN acute respiratory failure --post CABGHPI: 76 years old female with PMH of macular degeneration, obesity, obstructive sleepapnea (CPAP at home), former smoker, hypertension, hyperlipidemia, diabetes, Crohn's disease, chronic atrial fibrillation status post 3 ablations in the past(on Xarelto), pacemaker placement is admitted to the hospital post cardiac cath . she need CABG . she had sob for years . sob got worse . she was admitted to the hospital in [place] . she had cath 3 weeks ago . she was reffered to here for stents placement . she had cath yesterday . it show multiple vessels CAD . she is recommend CABG . she still feel sob . no cp no nausea no vomiting no fever no abdominal pain no dizziness . Review of SystemsConstitutional:Denies: fever, lethargy. Respiratory:Reports: non productive cough, SOB. Denies: wheezing. Cardiovascular:Reports: DOUGLASS (dyspnea on exertion), edema. Denies: palpitations. GI:Denies: nausea, vomiting. Neuro:Denies: dizziness. Objective GeneralVS/I O:Vital Signs: Date Time Temp Pulse Resp B/P [...] scale Measurement Method PATIENT WEIGHT: Weight (lb): 277Weight (oz): 5.46Weight (kg): 125.800 Medications:Active Meds + DC'd Last 24 HrsAspirin (ASPIRIN) 81 MG DAILY PO Clopidogrel Bisulfate (Plavix) 75 MG DAILY PO Cyanocobalamin (Vitamin B-12 500 mcg tab) 500 MCG DAILY PO Ferrous Sulfate (FERROUS SULFATE) 300 MG DAILY PO Metolazone (metOLazone) 5 MG DAILY PO Polyethylene Glycol (MIRALAX) 17 GM DAILY PO Lansoprazole (PREVACID) 30 MG DAILY@0600 PO Amino Acids/Electrolytes/Dextrose (TPN ADULT- CENTRAL 1000ML) 960 ML 2200 IV Fat Emulsion (FAT EMULSION 20% (INTRALIPID)) 250 ML 2200 IV Atorvastatin Calcium (LIPITOR) 40 MG 2100 FEED-TUBE (DC) Atorvastatin Calcium (LIPITOR) 40 MG 2100 [...] (CKD) Sodium Chloride (SODIUM CHLORIDE 0.9%) 99 MLLactulose (LACTULOSE) 20 GM ONCE ONE PO (DC) Magnesium Citrate (MAGNESIUM CITRATE) 240 ML ONCE ONE PO (CAN) Amiodarone HCl (CORDARONE) 200 MG TID FEED-TUBE (DC) Aspirin (ASPIRIN) 81 MG DAILY FEED-TUBE (DC) Clopidogrel Bisulfate (Plavix) 75 MG DAILY FEED-TUBE (DC) Cyanocobalamin (Vitamin B-12 500 mcg tab) 500 MCG DAILY FEED-TUBE (DC) Docusate Sodium (DOCUSATE SODIUM) 100 MG BID FEED-TUBE (DC) Ferrous Sulfate (FERROUS SULFATE) 300 MG DAILY FEED-TUBE (DC) Gabapentin (NEURONTIN) 200 MG BID 9A 5P FEED-TUBE Metolazone (metOLazone) 5 MG DAILY FEED-TUBE (DC) Metoprolol Tartrate (LOPRESSOR) 12.5 MG Q12HR FEED-TUBE (DC) Polyethylene Glycol (MIRALAX) 17 GM DAILY FEED-TUBE (DC) Lansoprazole (PREVACID) 30 MG DAILY@0600 FEED-TUBE (DC) Albumin Human (ALBUMINAR 5% 12.5GM/250ML) 250 ML ONCE ONE IV (CAN) Furosemide (LASIX 40 mg/4 mL INJECTION) 60 MG Q8H IV (CKD) Acetaminophen (TYLENOL) 650 MG Q4H PRN PRN FEED-TUBE (DC) Tramadol HCl (ULTRAM) 25 MG Q4H PRN PRN FEED-TUBE (DC) Tramadol HCl (ULTRAM) 50 MG Q4H PRN PRN FEED-TUBE (DC) Albumin Human (ALBUMINAR 25%) 25 GM Q8H IV Metolazone (metOLazone) 5 MG DAILY PO (DC) Fat Emulsion (FAT EMULSION 20% (INTRALIPID)) 100 ML 2200 IV Furosemide (LASIX 40 mg/4 mL INJECTION) 40 MG Q8H IV (DC) Insulin Glargine (Lantus/Semglee) 10 UNIT BID SUBQ (DC) Cyanocobalamin (Vitamin B-12 500 mcg tab) 500 MCG DAILY PO (DC) Ferrous Sulfate (FERROUS SULFATE) 325 MG DAILY PO (DC) Amino Acids/Electrolytes/Dextrose (TPN ADULT- CENTRAL 1000ML) 840 ML 2200 IV Acetylcysteine (MUCOMYST FOR RT) 200 MG RTQ6H NEB Albuterol/Ipratropium (DUONEB) 3 ML RTQ6H NEB Albumin Human (ALBUMINAR 5% 12.5GM/250ML) 12.5 GM Q12H IV (DC) Bisacodyl (DULCOLAX) 10 MG ONCE PRN RECTAL Insulin Human Lispro (HUMALOG) 0 Q6HR SUBQ (DC) Dextrose/Water (Dextrose 10% 1,000 mL) 1,000 ML ASDIR PRN IV Miscellaneous Information (TPN (Central) PHARMACY TO DOSE) 1 EACH ASDIR IV Clopidogrel Bisulfate (Plavix) 75 MG DAILY PO (DC) Polyethylene Glycol (MIRALAX) 17 GM DAILY PO (DC) Dopamine HCl/Dextrose (DOPamine 400MG/D5W 250ML) 250 ML ASDIR IV Pantoprazole (PROTONIX) 40 MG DAILY@0600 PO (DC) Docusate Sodium (COLACE) 100 MG BID PO (DC) Metoprolol Tartrate (LOPRESSOR) 12.5 MG Q12HR PO (DC) Sennosides (Senna Lax 8.6 MG TABLET) 17.2 MG BEDTIME PO (DC) Milrinone Lactate/Dextrose (MILRINONE 20MG/D5W 100ML) 100 ML ASDIR IV (CKD) Vasopressin (VASOSTRICT 20 Unit/NS 100ML) 100 ML [...] (TYLENOL) 650 MG Q4H PRN PRN PO (DC) Acetaminophen (TYLENOL) 650 MG Q4H PRN PRN RECTAL Calcium Chloride (CALCIUM CHLORIDE) 1 GM ASDIR PRN IV Dextrose/Water (DEXTROSE 10% IN WATER) 125 ML ASDIR PRN IV (CKD) Dextrose/Water (DEXTROSE 10% IN WATER) 250 ML ASDIR PRN IV (CKD) Epinephrine (ADRENALIN CHLORIDE) 5 MG ASDIR IV Dextrose/Water (DEXTROSE 5% WATER) 245 MLGlucagon (GLUCAGON) 1 MG ASDIR PRN IM Magnesium Sulfate (MAGNESIUM SULFATE 4GM/SWFI 100ML) 100 ML ASDIR PRN IV Magnesium Sulfate (MAGNESIUM SULFATE 2GM/SWFI 50ML) 50 ML ASDIR PRN IV Magnesium Sulfate/Dextrose (MAGNESIUM SULFATE 1GM/D5W 100ML) 100 ML ASDIR PRN IV Nitroglycerin/Dextrose (NITROGLYCERIN 50,000MCG/D5W 250ML) 250 ML ASDIR IV Norepinephrine Bitartrate (NOREPINEPHRINE 8 MG/NS 250 ML) 250 ML TITRATE IV Potassium Chloride (KCL 20MEQ/SWFI 100ML) 100 ML ASDIR PRN IV Sodium Bicarbonate (SODIUM BICARBONATE) 50 MEQ ASDIR PRN IV Sodium Chloride (SODIUM CHLORIDE 0.9%) 1,000 ML .Q20H IV Sodium Chloride (SODIUM CHLORIDE 0.9%) 250 ML Q24H IV Atorvastatin Calcium (LIPITOR) 40 MG 2100 PO (DC) Ceftriaxone Sodium (ROCEPHIN 1000MG VIAL) 1,000 MG Q24H IV (DC) Sodium Chloride (SODIUM CHLORIDE) 10 MLOndansetron HCl (ZOFRAN) 4 MG Q6H PRN PRN IV Vancomycin HCl (VANCOMYCIN HCL) 1,750 MG PREOP ONCALL IV (CKD) Sodium Chloride (NS 0.9%) 500 ML Physical ExamGeneral appearance: alert, awake, orientedHead/Eyes: atraumatic, normal conjunctiva/sclera, normal eyelids/periorb., normocephalicENT: intubatedNeck: full range of motion, non-tender, no JVDCardiovascular: normal heart sounds, regular rate rhythmRespiratory: dyspneic, hypercapnia, hypoxia, on oxygen, clear to auscultationAbdomen: non-tender, normal bowel sounds, soft, no distentionExtremities: moves all, no calf tenderness, no edemaNeuro/CAPTAIN FIRE PREVENTION B[employer]AU: alertSkin: dry, intact ResultsFindings/Data:Laboratory Tests 12/23 12/22 12/22 4597 9180 1549 Blood Gas Puncture Site R Radial Central Line Central Line O2 Saturation (90 - 100 %) 90.0 [...] Calcium (1.12 - 1.32 MMOL/L) 1.38 H 1.35 H 1.35 H Lactic Acid (0.9 - 1.7 mmol/l) 0.8 L 0.7 L 0.6 L Respiration Rate (/min) 20 O2 Delivery Device HFNC BiPAP Vapotherm Vent Mode BIVENT FiO2 (%) 73 40 60 Tidal Volume (ml) 550 Laboratory Tests 12/23 12/23 12/23 12/23 12/23 0850 0632 0400 0357 0032Chemistry Sodium (134 - 147 mEq/L) 144 Potassium [...] (Auto) (14.0 - 32.0 %) 3.0 L Colquitt % (Auto) (4.8 - 9.0 %) 9.2 H Eos % (Auto) (0.3 - 3.7 %) 0.5 Baso % (Auto) (0.0 - 2.0 %) 0.2 Neut # (Auto) (2.0 - 7.6 x10 3/uL) 5.42 Lymph # (Auto) (1.0 - 3.8 x10 3/uL) 0.19 L [place] # (Auto) (0.1 - 0.8 x10 3/uL) 0.58 Eos # (Auto) (0.0 - 0.2 x10 3/uL) 0.03 Baso # (Auto) (0.0 - 0.2 x10 3/uL) 0.01 Abs Immat Gran (auto) (0.00 - 0.03 x10 3/uL) 0.07 H Add Manual Diff NO Immature Gran % (0.0 - 2.0 %) 1.1 Nucleated RBC % (0 - 0 %) 0.5 H Nucleated RBCs # (Man) (0.0 - 0.1 x10 3/uL) 0.03 Radiology data:Recent Impressions:RADIOLOGY - XR ABDOMEN 1V (KUB) 12/22 2133 Report Impression - Status: SIGNED Entered: 12/22/20212154 IMPRESSION: Nonspecific lower abdomen small bowel distention. If symptoms persist or worsen, follow-up imaging may be performed to better assess for small bowel obstructionImpression By: AureliaWHCeli Lilly M.D.RADIOLOGY - XR ABDOMEN 1V (KUB) 12/23 0055 Report Impression - Status: SIGNED Entered: 12/23/2021 0122 IMPRESSION: 1. A nasogastric tube terminates overlying the stomach. 2. Dilated small bowel loops in the left lower quadrant. Impression By: AureliaAR21 Carlos HudsonDRADIOLOGY - XR CHEST 1 V 12/23 0655 Report Impression - Status: SIGNED Entered: 12/23/2021 0807 IMPRESSION: Stable postoperative chest, following removal of bilateral chest tubes. Impression By: AureliaJG42 - Jesus Galdamez M.D. Treatment Prophylaxis Treatment ProphylaxisDrain(s)/tube(s): Drain(s)/tube(s): chest (x3) Diagnosis, Assessment PlanConsultants: cardiology, cardiovascular surgery Free Text DxA P NotesFree text DxA P notes: 76 years old female with PMH of macular degeneration, obesity, obstructive sleepapnea (CPAP at home), former smoker, hypertension, hyperlipidemia, diabetes, Crohn's disease, chronic atrial fibrillation status post 3 ablations in the past(on Xarelto), pacemaker placement CAD -- multiple vesssels HTNDM HLDCrohn's diseasechronic atrial fibrillation status post 3 ablationsmacular degenerationobesityobstructive sleep apneaacute respiratory failure --post surgery severe mitral valve [...] MVR (31 Magna valve), CABG x 1 (ROBERTS-LAD), ILAA and pericardectomy -- she remain intubated on the vent -- chest tube are in place -on levophed and epinephrine drip -- monitor in CCU 12/20- she was extubated --on bipap now -- NPO --off Levophed/epinephrine, continue vasopressin, inotropes with milrinone, -- chest tube remain in place -- she is stable post surgery 12/21-- she is on high flow O2 -- edema --lasix --chest tube in place --- she is hemodynamic stable -- continue monitor in CCU 12/22- she remain on high O2 CXR show worsening pulmonary venous vascular congestion. --lasix iv tid -- chest tube are out -- off drips -- NPO -- start TPN -- continue monitor in CCU 12/23- she remain on high flow O2 --less edema -- on TPN -- she is hemodynamic stable -- continue monitor in CVICU review all image and consultants notes Current Medications Sig/Frankie Start time Last Medication Dose Route Stop [...] Sodium 3 GM PREOP ONCALL 12/18 499 CKD Sodium Chloride 250 ML IV 12/18 2358 [...] IV 12/18 1158 Sodium Chloride 1,000 ML .[id number] 12/17 1200 AC 12/17 IV 12/17 1839 1404 Sodium Chloride 500 ML ASDIR PRN 12/17 1200 AC IV 12/18 1158 Adenosine 0 .STK-MED ONE 12/17 1052 DC IV Sodium Chloride 50 ML .STK-MED ONE 12/17 1052 DC IV Iopamidol 100 ML .STK-MED ONE 12/17 1034 DC 12/17 IV 12/17 1035 1034 Fentanyl Citrate 0 .STK-MED ONE 12/17 1019 DC 12/17 .ROUTE 1030 Midazolam HCl 0 .STK-MED ONE 12/17 1019 DC 12/17 .ROUTE 1030 Heparin Sodium/ 500 ML .STK-MED ONE 12/17 0949 DC 12/17 Sodium Chloride IV 1030 Heparin Sodium 0 .STK-MED ONE 12/17 0940 DC 12/17 .ROUTE 1030 Heparin Sodium/ 1,000 ML .STK-MED ONE 12/17 0840 DC 12/17 Sodium Chloride IV 1030 Heparin Sodium/ 500 ML .STK-MED ONE 12/17 0840 DC 12/17 Sodium Chloride IV 1030 Lidocaine HCl 0 .STK-MED ONE 12/17 0840 DC 12/17 .ROUTE 1030 Nitroglycerin/ 250 ML .STK-MED ONE 12/18 939 DC 12/17 Dextrose IV 1030 Verapamil HCl 0 .STK-MED ONE 12/17 0840 DC 12/17 IV 1030 Home Medications:RIVAROXABAN (XARELTO) 20 MG PO DAILY amLODIPine (NORVASC) [...] DAILY INSULIN DETEMIR (LEVEMIR FlexTouch (15mL)) 50 UNITS SUBQ BID INSULIN LISPRO (HumaLOG CARTRIDGE (15mL)) 0 UNITS SUBQ TID LIRAGLUTIDE (VICTOZA (6mL)) 1.8 MG SUBQ DAILY metFORMIN (GLUCOPHAGE) 1,000 MG PO BID ADALIMUMAB + SUPPLIES (HUMIRA PREFILLED PEN) 40 MG SUBQ Q14D azaTHIOprine (IMURAN) 50 MG PO DAILY Quality: Gen Med Crit Care Current MedicationsCurrent medication review:Home Medications:RIVAROXABAN (XARELTO) 20 MG PO DAILY amLODIPine (NORVASC) [...] DAILY INSULIN DETEMIR (LEVEMIR FlexTouch (15mL)) 50 UNITS SUBQ BID INSULIN LISPRO (HumaLOG CARTRIDGE (15mL)) 0 UNITS SUBQ TID LIRAGLUTIDE (VICTOZA (6mL)) 1.8 MG SUBQ DAILY metFORMIN (GLUCOPHAGE) 1,000 MG PO BID ADALIMUMAB + SUPPLIES (HUMIRA PREFILLED PEN) 40 MG SUBQ Q14D azaTHIOprine (IMURAN) 50 MG PO DAILY I attest that the foregoing medication list in the medical record is true, accurate, and complete to the best of my knowledge. at 1745 [facility] #:[id number] OF REPORTPRProgress [id number]:09:00G.[id number] oskar for patient wudiRXJTFXMKWEQVRG3688-19-70L09:45:31 [facility] 2021-12-23 11:18:00 [id number]+b Z9apYW+OJPax lHRjQtvRJ6BI66p+r0+5o3cE0924-74-25X37:18:00 [facility] Prog.Note-NutritionREPORT#:[id number] REPORT STATUS: SignedDATE:12/23/21 TIME: 1118 PATIENT: KIAH GILES UNIT #: [id number]#: [id number] [address] [birth year] AGE: 76 SEX: F ATTEND: Jeffry More MDADM AUTHOR: Vanessa Morales [facility] * ALL edits or amendments must be made on the electronic/computer document * Nutrition Support Nutrition SupportDietitian nutrition assessmentThe data set between the solid lines has been imported from the dietitian's assessment. BMI Calculated: 47.6Nutrition related diagnosis: Morbid obesityNutrition diagnosis details: BMI 40 or moreNutrition problem: Increased nutrient needsNutrition etiology: Chronic diseaseNutrition signs and symptoms: S/P CABGNutrition prescription: 1. RECOMMEND 1800 ADA DIABETIC DIET. 2. PROVIDE GLUCERNA TID WITH MEALS. 3. CONTINUE CURRENT TPN ORDER TO SUPPLEMENT MEALS UNTILPO INTAKE >50% AT MEALS. 4. MONITOR PO, WT, LABS, BM.Dietitian name: Serenity Garner DIETAssessment completed: 12/22/21 Medication therapy: adult PNIndication for treatment: Alberto using an "X" for all appropriate indications: Evidence of PCM and enteral nutrition (EN) not feasible Malnourished surgical patient able to have PN 5-7 days preoperatively and EN not feasible PN for anticipated need of >5-7 days and EN not feasibleX Supplemental PN if unable to meet EN goal within 7-10 days Other: Current therapy:Adult Parenteral Nutrition Custom Formulation for Central Administration plus LipidsDay of therapy:Day 3Weight: Actual weight (kg): 125.8Vital signs/I O:24 hour I O ending at 0700: 12/23 [...] 70 12/22 193 72 18 60 12/22 1939 100 60 [...] 1130 36.5 72 26 125/64 87 91 Labs:Laboratory Tests 12/23 12/22 12/22 12/21 12/20 0400 [...] Chemistry Calcium (8.0 - 10.5 mg/dL) 10.12/23 040 Phosphorus (2.5 - 4.9 MG/DL) 3.4 12/22 429 Magnesium (1.80 - 2.40 mg/dL) 2.42 H 12/23 040 Albumin (3.4 - 5.0 g/dL) 4.30 12/22 [...] 110 MG/DL) 236 H 371 H Diet: regularCalorie needs:1649-2223 kcal/day (30-35 kcal/kg/day) 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 assessment on 12/22Protein needs:90-120 g/day 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 assessment on 12/22IV access:Right IJ CVCTreatment plan: consult, change regimenRegimen:CAPS Custom Formulation Rate: 40 mL/hr (960 mL/day)Total kcal: 1580 kcal/day ( 88% of daily kcal goal) Amino acids 100 g/day (100% of daily protein goal)Dextrose 200 g/dayLipids 50 g/day Sodium chloride 30 mEq/daySodium acetate 30 mEq/dayMagnesium sulfate mEq/dayCalcium gluconate mEq/dayPotassium chloride 20 mEq/dayPotassium acetate mEq/dayPotassium phosphate mmol/daySodium phosphate -- mmol/day MVI 10 mL dailyTrace elements 1 mL daily Insulin, regular -- units Orders outside of TPN:Furosemide 60 mg IV i3oGpxigpm dripOndansetron 4 mg IV q6h PRN (last administered 12/22 at 2144)Pantoprazole 40 mg PO daily 12/22: Magnesium sulfate 1g IV x112/22: Potassium chloride 20 mEq IV x1 Rationale:HPI: This 76-year-old female, [facility], with past medical historyof macular degeneration, obesity, obstructive sleep apnea (CPAP at home), formersmoker, hypertension, hyperlipidemia, diabetes, Crohn's disease, chronic atrial fibrillation (status post 3 ablations in the past and on Xarelto), and pacemakerplacement who had a recent admission to the hospital with heart failure symptoms. She has been admitted to the hospital for elective heart cath. Coronary angiogram showed severe multivessel coronary artery disease not suitable for percutaneous intervention. The patient is now status post CABG x1 and MVR on 12/[address] Romero. Due to the patient s dependence on BiPAP postoperatively, Dr. Romero would like to initiate TPN to meet this patient s nutritional needs. Pharmacy has been consulted for the dosing and monitoring of TPN. 12/23 Assessment and Plan Patient with a regular diet, but she developed nausea overnight. A KUB showed a nonobstructive gas pattern. An NG tube was inserted, however, the patient self-removed this overnight. Per discussion on rounds, Dr. Romero would like to continue TPN at this time. Macronutrients: Will increase the rate of TPN to 40 mL/hr to accommodate the increased volume from advancing amino acids and dextrose. Will increase amino acids and dextrose to 100 g/day and 200 g/day, respectively. Will increase lipids to 50 g/day. This will provide 1580 kcal/day. (100% of daily protein goaland 88% of daily kcal goal). Will advance TPN in the coming days as tolerated. Triglycerides 67 on 12/18; monitor at least weekly while on TPN. Electrolytes: Magnesium slightly elevated at 2.42 this morning. All other electrolytes are within normal limits. Will add a small amount of potassium chloride to TPN. Electrolytes in TPN as outlined above. Supplement additional electrolytes outside of TPN as indicated. Renal I/O: BUN/SCr 33/1.1 (BUN stable from yesterday, SCr now trending down). Urine output with 1890 mL and chest tube output with 70 mL documented over the past 24 hours. Will concentrate TPN as much as possible given recent cardiovascular surgery and need for frequent diuresis. The patient will receive 960 mL/day of fluids from TPN and 250 mL/day from lipids. Hepatic: Tbili 0.50, AST/ALT /13, Alk phos 57, and albumin 4.30 on 12/22; monitor at least weekly while on TPN Glycemic Control: Serum blood glucose was 222 mg/dL this morning. Nafyz-pa-rzvi glucose has ranged 168-371 mg/dL over the past 24 hours. 28 units of sliding scale insulin administered over the past 24 hours. Per discussion on rounds, will transition the patient to an insulin drip. Will not add insulin to TPN at this time. at 112[address] [facility] #:[id number] OF REPORTPRProgress [id number]:18:00G.[id number] e for patient ricpAIQSLIXAVLZBCD9012-84-82V53:22:16 [facility] 2021-12-23 09:04:00 [id number] 3BVXWEeW1nra dk2sa5ChZX8JWcbrI3D5NHsz0571-05-64Q38:04:00 [facility] ProgREPORT#:[id number] REPORT STATUS: SignedDATE:12/23/21 TIME: 0904 PATIENT: KIAH GILES UNIT #: [id number]#: [id number] [address] [birth year] AGE: 76 SEX: F ATTEND: Jeffry More MDA AUTHOR: René Romero MD * ALL edits or amendments must be made on the electronic/computer document * GeneralPost-op: day 4Status post:1. Mitral valve replacement (31 Magna valve). 2. Coronary artery bypass graft surgery x1 (ROBERTS to LAD). 3. Isolation of left atrial appendage. 4. Pericardiectomy. SubjectiveChief complaint:Shortness of breath Review of SystemsConstitutional:Denies: fever, malaise. Allergy/Immun:Denies: allergic reaction. ENT:Denies: sore throat. Respiratory:Denies: SOB. GI:Denies: abdominal pain. Heme:Denies: bleeding. Neuro:Denies: focal weakness, headache. All systems rev neg: except as marked Objective GeneralVS/I OLast Documented: Result Date Time Pulse Ox 93 [...] scale Measurement Method PATIENT WEIGHT: Weight (lb): 277Weight (oz): 5.46Weight (kg): 125.800 Dietitian Nutrition assessmentThe data set between the solid lines has been imported from the dietitian's assessment. BMI Calculated: 47.6Nutrition related diagnosis: Morbid obesityNutrition diagnosis details: BMI 40 or moreNutrition problem: Increased nutrient needsNutrition etiology: Chronic diseaseNutrition signs and symptoms: S/P CABGNutrition prescription: 1. RECOMMEND 1800 ADA DIABETIC DIET. 2. PROVIDE GLUCERNA TID WITH MEALS. 3. CONTINUE CURRENT TPN ORDER TO SUPPLEMENT MEALS UNTILPO INTAKE >50% AT MEALS. 4. MONITOR PO, WT, LABS, BM.Dietitian name: Serenity Garner, DIETAssessment completed: 12/22/21 Physical ExamGeneral appearance: alert, awake, orientedWound/incision: Location:sternal Site condition: dressing clean dry, dressing intactHEENT: anictericNeck: supple/no meningismusCardiovascular: normal heart sounds, regular rate rhythmRespiratory: aerating well, symmetric expansion, no distressAbdomen: soft, non-tenderExtremities: moves allNeuro/[employer]: alert, 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, normal speechSkin: dry, intact, normal temperaturePsychiatry: normal affect, normal mood Current MedicationsMedications:Active Meds + DC'd Last 24 HrsAtorvastatin Calcium (LIPITOR) 40 MG 2100 FEED-TUBE Senna (SENOKOT) 17.6 MG BEDTIME FEED-TUBE Amiodarone HCl (CORDARONE) 200 MG TID FEED-TUBE Aspirin (ASPIRIN) 81 MG DAILY FEED-TUBE Clopidogrel Bisulfate (Plavix) 75 MG DAILY FEED-TUBE Cyanocobalamin (Vitamin B-12 500 mcg tab) 500 MCG DAILY FEED-TUBE Docusate Sodium (DOCUSATE SODIUM) 100 MG BID FEED-TUBE Ferrous Sulfate (FERROUS SULFATE) 300 MG DAILY FEED-TUBE Gabapentin (NEURONTIN) 200 MG BID 9A 5P FEED-TUBE Metolazone (metOLazone) 5 MG DAILY FEED-TUBE Metoprolol Tartrate (LOPRESSOR) 12.5 MG Q12HR FEED-TUBE Polyethylene Glycol (MIRALAX) 17 GM DAILY FEED-TUBE Lansoprazole (PREVACID) 30 MG DAILY@0600 FEED-TUBE Albumin Human (ALBUMINAR 5% 12.5GM/250ML) 250 ML ONCE ONE IV (CAN) Furosemide (LASIX 40 mg/4 mL INJECTION) 60 MG Q8H IV (CKD) Acetaminophen (TYLENOL) 650 MG Q4H PRN PRN FEED-TUBE Tramadol HCl (ULTRAM) 25 MG Q4H PRN PRN FEED-TUBE Tramadol HCl (ULTRAM) 50 MG Q4H PRN PRN FEED-TUBE Albumin Human (ALBUMINAR 25%) 25 GM Q8H IV Metolazone (metOLazone) 5 MG DAILY PO (DC) Fat Emulsion (FAT EMULSION 20% (INTRALIPID)) 100 ML 2200 IV Furosemide (LASIX 40 mg/4 mL INJECTION) 40 MG Q8H IV (DC) Insulin Glargine (Lantus/Semglee) 10 UNIT BID SUBQ Cyanocobalamin (Vitamin B-12 500 mcg tab) 500 MCG DAILY PO (DC) Ferrous Sulfate (FERROUS SULFATE) 325 MG DAILY PO (DC) Amino Acids/Electrolytes/Dextrose (TPN ADULT- CENTRAL 1000ML) 840 ML 2200 IV Acetylcysteine (MUCOMYST FOR RT) 200 MG RTQ6H NEB Albuterol/Ipratropium (DUONEB) 3 ML RTQ6H NEB Albumin Human (ALBUMINAR 5% 12.5GM/250ML) 12.5 GM Q12H IV (DC) Furosemide (LASIX 40 mg/4 mL INJECTION) 40 MG Q12H IV (DC) Bisacodyl (DULCOLAX) 10 MG ONCE PRN RECTAL Insulin Human Lispro (HUMALOG) 0 Q6HR SUBQ Dextrose/Water (Dextrose 10% 1,000 mL) 1,000 ML ASDIR PRN IV Miscellaneous Information (TPN (Central) PHARMACY TO DOSE) 1 EACH ASDIR IV Clopidogrel Bisulfate (Plavix) 75 MG DAILY PO (DC) Polyethylene Glycol (MIRALAX) 17 GM DAILY PO (DC) Dopamine HCl/Dextrose (DOPamine 400MG/D5W 250ML) 250 ML ASDIR IV Pantoprazole (PROTONIX) 40 MG DAILY@0600 PO (DC) Docusate Sodium (COLACE) 100 MG BID PO (DC) Metoprolol Tartrate (LOPRESSOR) 12.5 MG Q12HR PO (DC) Sennosides (Senna Lax 8.6 MG TABLET) 17.2 MG BEDTIME PO (DC) Milrinone Lactate/Dextrose (MILRINONE 20MG/D5W 100ML) 100 ML ASDIR IV (CKD) Vasopressin (VASOSTRICT 20 Unit/NS 100ML) 100 ML [...] (TYLENOL) 650 MG Q4H PRN PRN PO (DC) Acetaminophen (TYLENOL) 650 MG Q4H PRN PRN RECTAL Calcium Chloride (CALCIUM CHLORIDE) 1 GM ASDIR PRN IV Dextrose/Water (DEXTROSE 10% IN WATER) 125 ML ASDIR PRN IV (CKD) Dextrose/Water (DEXTROSE 10% IN WATER) 250 ML ASDIR PRN IV (CKD) Epinephrine (ADRENALIN CHLORIDE) 5 MG ASDIR IV Dextrose/Water (DEXTROSE 5% WATER) 245 MLGlucagon (GLUCAGON) 1 MG ASDIR PRN IM Magnesium Sulfate (MAGNESIUM SULFATE 4GM/SWFI 100ML) 100 ML ASDIR PRN IV Magnesium Sulfate (MAGNESIUM SULFATE 2GM/SWFI 50ML) 50 ML ASDIR PRN IV Magnesium Sulfate/Dextrose (MAGNESIUM SULFATE 1GM/D5W 100ML) 100 ML ASDIR PRN IV Nitroglycerin/Dextrose (NITROGLYCERIN 50,000MCG/D5W 250ML) 250 ML ASDIR IV Norepinephrine Bitartrate (NOREPINEPHRINE 8 MG/NS 250 ML) 250 ML TITRATE IV Potassium Chloride (KCL 20MEQ/SWFI 100ML) 100 ML ASDIR PRN IV Sodium Bicarbonate (SODIUM BICARBONATE) 50 MEQ ASDIR PRN IV Sodium Chloride (SODIUM CHLORIDE 0.9%) 1,000 ML .Q20H IV Sodium Chloride (SODIUM CHLORIDE 0.9%) 250 ML Q24H IV Atorvastatin Calcium (LIPITOR) 40 MG 2100 PO (DC) Ceftriaxone Sodium (ROCEPHIN 1000MG VIAL) 1,000 MG Q24H IV (DC) Sodium Chloride (SODIUM CHLORIDE) 10 MLOndansetron HCl (ZOFRAN) 4 MG Q6H PRN PRN IV Amlodipine Besylate (NORVASC) 5 MG DAILY PO (DC) Vancomycin HCl (VANCOMYCIN HCL) 1,750 MG PREOP ONCALL IV (CKD) Sodium Chloride (NS 0.9%) 500 ML ResultsFindings/Data:Laboratory Tests 12/23 12/22 12/22 3182 [id number] Blood Gas Puncture Site R Radial Central Line Central Line O2 Saturation (90 - 100 %) 90.0 [...] Calcium (1.12 - 1.32 MMOL/L) 1.38 H 1.35 H 1.35 H Lactic Acid (0.9 - [...] (Auto) (14.0 - 32.0 %) 3.0 L Colquitt % (Auto) (4.8 - 9.0 %) 9.2 H Eos % (Auto) (0.3 - 3.7 %) 0.5 Baso % (Auto) (0.0 - 2.0 %) 0.2 Neut # (Auto) (2.0 - 7.6 x10 3/uL) 5.42 Lymph # (Auto) (1.0 - 3.8 x10 3/uL) 0.19 L [place] # (Auto) (0.1 - 0.8 x10 3/uL) 0.58 Eos # (Auto) (0.0 - 0.2 x10 3/uL) 0.03 Baso # (Auto) (0.0 - 0.2 x10 3/uL) 0.01 Abs Immat Gran (auto) (0.00 - 0.03 x10 3/uL) 0.07 H Add Manual Diff NO Immature Gran % (0.0 - 2.0 %) 1.1 Nucleated RBC % (0 - 0 %) 0.5 H Nucleated RBCs # (Man) (0.0 - 0.1 x10 3/uL) 0.03 Radiology data:Recent Impressions:ULTRASOUND - US SOFT TISSUE TORSO 12/22 1107 Report Impression - Status: SIGNED Entered: 12/22/2021 1125 IMPRESSION: Minimal left and mild right pleural effusions. Impression By: Arnie - Amina Garcia D.O.RADIOLOGY - XR ABDOMEN 1V (KUB) 12/22 2133 Report Impression - Status: SIGNED Entered: 12/22/2021 2155 IMPRESSION: Nonspecific lower abdomen small bowel distention. If symptoms persist or worsen, follow-up imaging may be performed to better assess for small bowel obstructionImpression By: [email or web address] Herminia Lilly M.D.RADIOLOGY - XR ABDOMEN 1V (KUB) 12/23 0055 Report Impression - Status: SIGNED Entered: 12/23/2021 0122 IMPRESSION: 1. A nasogastric tube terminates overlying the stomach. 2. Dilated small bowel loops in the left lower quadrant. Impression By: [email or web address] - Carlos BaughDRADIOLOGY - XR CHEST 1 V 12/23 0655 Report Impression - Status: SIGNED Entered: 12/23/2021 0807 IMPRESSION: Stable postoperative chest, following removal of bilateral chest tubes. Impression By: [id number] - Jesus Galdamez M.D. Results: labs reviewed, vital signs stable, rythm personally rev'd, x-ray personally reviewed, current med profile rev'd Treatment Prophylaxis Treatment ProphylaxisOxygen: CPAP/BIPAPLines: arterial, CVC, peripheralDrain(s)/tube(s): Drain(s)/tube(s): chest (x3) Quality: Trauma Gen Surg Current MedicationsCurrent medication review:Home Medications:RIVAROXABAN (XARELTO) 20 MG PO DAILY amLODIPine (NORVASC) [...] DAILY INSULIN DETEMIR (LEVEMIR FlexTouch (15mL)) 50 UNITS SUBQ BID INSULIN LISPRO (HumaLOG CARTRIDGE (15mL)) 0 UNITS SUBQ TID LIRAGLUTIDE (VICTOZA (6mL)) 1.8 MG SUBQ DAILY metFORMIN (GLUCOPHAGE) 1,000 MG PO BID ADALIMUMAB + SUPPLIES (HUMIRA PREFILLED PEN) 40 MG SUBQ Q14D azaTHIOprine (IMURAN) 50 MG PO DAILY I attest that the foregoing medication list in the medical record is true, accurate, and complete to the best of my knowledge. Diagnosis, Assessment PlanHospital course to date:This very pleasant 76-year-old female, from [facility], with past medical history of macular degeneration, obesity, obstructive sleep apnea (CPAP at home), former smoker, hypertension, hyperlipidemia, diabetes, Crohn's disease, chronic atrial fibrillation status post 3 ablations in the past (on Xarelto), pacemaker placement who had a recent admission to the hospital with heart failure symptoms. She has been admitted to the hospital today for elective heartcath. Coronary angiogram showed severe multivessel coronary artery disease suitable for percutaneous intervention. CV surgery called for evaluation. 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 She will benefit from off-pump ROBERTS to LAD and pericardiotomy. Dr. Romero explainedto the patient the surgery, risks involved, STS score, benefits, complications and alternatives. She acknowledged understanding and is willing to proceedPreop work-up has been initiatedWe will tentatively schedule patient for surgery tomorrow. 12/18 Preop assessment ongoingNo carotid stenosis on ultrasoundCT chest reviewed with Dr. Singhurgery rescheduled for tomorrowNPO after midnight Plan discussed with the patient 12/20 POD 1Patient hemodynamically stable, cardiac index 3.1Required Bipap after extubation yesterday and overnightTrend ABGs- wean bipap as toleratedDecrease milrinone drip to 0.125, and continue vasopressin at 0.02 Urine output marginal- dopamine drip started at 3Creatinine increased to 1.4, monitor strict I and O'sEncourage po intake, incentive spirometer useTry to get patient out of bed to chair today PT/OTMonitor patient closely in the CVICU 12/22/21POD3d/c chest tubesneed to diuresis agressively 40 g88yklum needs legs elevatedcxr appears wetd/c swanTPN due to bipapteleflex today keep TPN for now 12/23 POD 4Labs and cxr reviewedIncrease diuresis- monitor strict I OsContinue TPNOn teleflex 60L 70%- wean as toleratedMonitor patient in CVICU Consultants: cardiology, cardiovascular surgery at 1159 RPT #:[id number] OF REPORTPRProgress [id number]:04:00G.[id number] e for patient [id number]:01:33 HC ACL 2021-12-22 16:42:00 [id number] MTOaJzXchOhq [id number]/2959-14-51A27:42:[address] [facility] ([facility])Cardiothoracic Surgery ProgREPORT#:[id number] REPORT STATUS: SignedDATE:12/22/21 TIME: 1641 PATIENT: KIAH GILES UNIT #: [id number]#: [id number] [address] AGE: 76 SEX: F ATTEND: Jeffry More AUTHOR: Tj Bonner MD * ALL edits or amendments must be made on the electronic/computer document * GeneralPost-op: day 3Status post:1. Mitral valve replacement (31 Magna valve). 2. Coronary artery bypass graft surgery x1 (ROBERTS to LAD). 3. Isolation of left atrial appendage. 4. Pericardiectomy. SubjectiveChief complaint:Shortness of breath Review of SystemsConstitutional:Denies: fever, malaise. Allergy/Immun:Denies: allergic reaction. ENT:Denies: sore throat. Respiratory:Denies: SOB. GI:Denies: abdominal pain, nausea, vomiting. Heme:Denies: bleeding. Neuro:Denies: focal weakness, headache. All systems rev neg: except as marked Objective GeneralVS/I OLast Documented: Result Date Time Pulse Ox 94 [...] scale Measurement Method PATIENT WEIGHT: Weight (lb): 276Weight (oz): 3.83Weight (kg): 125.300 Dietitian Nutrition assessmentThe data set between the solid lines has been imported from the dietitian's assessment. BMI Calculated: 47.4Nutrition related diagnosis: Morbid obesityNutrition diagnosis details: BMI 40 or moreNutrition problem: Increased nutrient needsNutrition etiology: Chronic diseaseNutrition signs and symptoms: S/P CABGNutrition prescription: 1. RECOMMEND 1800 ADA DIABETIC DIET. 2. PROVIDE GLUCERNA TID WITH MEALS. 3. CONTINUE CURRENT TPN ORDER TO SUPPLEMENT MEALS UNTILPO INTAKE >50% AT MEALS. 4. MONITOR PO, WT, LABS, BM.Dietitian name: Serenity Garner, DIETAssessment completed: 12/22/21 Physical ExamGeneral appearance: alert, awake, orientedWound/incision: Location:sternal Site condition: dressing clean dry, dressing intactHEENT: anictericNeck: supple/no meningismusCardiovascular: normal heart sounds, regular rate rhythmRespiratory: aerating well, symmetric expansion, no distressAbdomen: soft, non-tender, no distentionExtremities: moves allNeuro/[employer]: alert, 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, normal speechSkin: dry, intact, normal temperaturePsychiatry: normal affect, normal mood Current MedicationsMedications:Active Meds + DC'd Last 24 HrsFat Emulsion (FAT EMULSION 20% (INTRALIPID)) 100 ML 2200 IV Furosemide (LASIX 40 mg/4 mL INJECTION) 40 MG Q8H IV Insulin Glargine (Lantus/Semglee) 10 UNIT BID SUBQ Cyanocobalamin (Vitamin B-12 500 mcg tab) 500 MCG DAILY PO Ferrous Sulfate (FERROUS SULFATE) 325 MG DAILY PO Amino Acids/Electrolytes/Dextrose (TPN ADULT- CENTRAL 1000ML) 840 ML 2200 IV Acetylcysteine (MUCOMYST FOR RT) 200 MG RTQ6H NEB Albuterol/Ipratropium (DUONEB) 3 ML RTQ6H NEB Albumin Human (ALBUMINAR 5% 12.5GM/250ML) 12.5 GM Q12H IV Furosemide (LASIX 40 mg/4 mL INJECTION) 40 MG Q12H IV (DC) Bisacodyl (DULCOLAX) 10 MG ONCE PRN RECTAL Insulin Human Lispro (HUMALOG) 0 Q6HR SUBQ Magnesium Hydroxide (MILK OF MAGNESIA) 30 ML ONCE PRN PO (DC) Dextrose/Water (Dextrose 10% 1,000 mL) 1,000 ML ASDIR PRN IV Miscellaneous Information (TPN (Central) PHARMACY TO DOSE) 1 EACH ASDIR IV Clopidogrel Bisulfate (Plavix) 75 MG DAILY PO Polyethylene Glycol (MIRALAX) 17 GM DAILY PO Dopamine HCl/Dextrose (DOPamine 400MG/D5W 250ML) 250 ML ASDIR IV Pantoprazole (PROTONIX) 40 MG DAILY@0600 PO Docusate Sodium (COLACE) 100 MG BID PO Metoprolol Tartrate (LOPRESSOR) 12.5 MG Q12HR PO Sennosides (Senna Lax 8.6 MG TABLET) 17.2 MG BEDTIME PO Milrinone Lactate/Dextrose (MILRINONE 20MG/D5W 100ML) 100 ML ASDIR IV (CKD) Vasopressin (VASOSTRICT 20 Unit/NS 100ML) 100 ML [...] Acetaminophen (TYLENOL) 650 MG Q4H PRN PRN RECTAL Calcium Chloride (CALCIUM CHLORIDE) 1 GM ASDIR PRN IV Dextrose/Water (DEXTROSE 10% IN WATER) 125 ML ASDIR PRN IV (CKD) Dextrose/Water (DEXTROSE 10% IN WATER) 250 ML ASDIR PRN IV (CKD) Epinephrine (ADRENALIN CHLORIDE) 5 MG ASDIR IV Dextrose/Water (DEXTROSE 5% WATER) 245 MLGlucagon (GLUCAGON) 1 MG ASDIR PRN IM Magnesium Sulfate (MAGNESIUM SULFATE 4GM/SWFI 100ML) 100 ML ASDIR PRN IV Magnesium Sulfate (MAGNESIUM SULFATE 2GM/SWFI 50ML) 50 ML ASDIR PRN IV Magnesium Sulfate/Dextrose (MAGNESIUM SULFATE 1GM/D5W 100ML) 100 ML ASDIR PRN IV Nitroglycerin/Dextrose (NITROGLYCERIN 50,000MCG/D5W 250ML) 250 ML ASDIR IV Norepinephrine Bitartrate (NOREPINEPHRINE 8 MG/NS 250 ML) 250 ML TITRATE IV Potassium Chloride (KCL 20MEQ/SWFI 100ML) 100 ML ASDIR PRN IV Sodium Bicarbonate (SODIUM BICARBONATE) 50 MEQ ASDIR PRN IV Sodium Chloride (SODIUM CHLORIDE 0.9%) 1,000 ML .Q20H IV Sodium Chloride (SODIUM CHLORIDE 0.9%) 250 ML Q24H IV Atorvastatin Calcium (LIPITOR) 40 MG 2100 PO Ceftriaxone Sodium (ROCEPHIN 1000MG VIAL) 1,000 MG Q24H IV Sodium Chloride (SODIUM CHLORIDE) 10 MLOndansetron HCl (ZOFRAN) 4 MG Q6H PRN PRN IV Amlodipine Besylate (NORVASC) 5 MG DAILY PO (DC) Vancomycin HCl (VANCOMYCIN HCL) 1,750 MG PREOP ONCALL IV (CKD) Sodium Chloride (NS 0.9%) 500 ML ResultsFindings/Data:Laboratory Tests 12/22 12/22 12/22 12/21 1549 0433 0005 2107Blood Gas Puncture Site Central Line Art Line Art Line Art Line O2 Saturation (90 - 100 %) 96.0 92.5 90.0 ABG pH (7.35 - 7.45) 7.334 L 7.330 L 7.306 L ABG pCO2 (35.0 - 45 mmHg) 55.7 *H 51.8 *H 56.1 *H ABG pO2 (80 - 100.0 mmHg) 88.6 69.4 L 64.8 L ABG PO2/FiO2 Ratio (mm/Hg) 147.66 115.66 108.00 ABG HCO3 (22.0 - 26.0 MMOL/L) 29.7 *H 27.5 H 28.1 *H ABG Total CO2 31.4 29.1 29.8 ABG Base Excess (-4.0 - 4.0 3.8 1.4 1.7MMOL/L) ABG Hematocrit (33.0 - 45.0 %) 24 L 25 L 24 L 25 L ABG Hemoglobin (11.0 - 15.0 G/DL) 8.1 L 8.6 L 8.3 L 8.4 L Martin Test N/A VBG pH (7.33 - 7.45) 7.226 L VBG pCO2 (43 - 47 mmHg) 74.1 *H VBG pO2 (10 - 50 mmHG) 36.8 VBG HCO3 (22 - 27 MMOL/L) 30.9 H POC VBG Total CO2 33.2 VBG O2 Saturation (60 - 80 %) 58.2 L VBG Base Excess (-4.0 - 4.0 3.2MMOL/L) VBG Temperature (F) 98 Sodium (134 - 147 MEQ/L) 143 145 142 142 Potassium (3.4 - 5.0 MEQ/L) 3.6 3.7 4.1 4.4 Chloride (100 - 108 MEQ/L) 103 106 106 107 Ionized Calcium (1.12 - 1.32 1.35 H 1.44 H 1.40 H 1.39 HMMOL/L) Lactic Acid (0.9 - 1.7 mmol/l) 0.6 [...] H Phosphorus (2.5 - 4.9 MG/DL) 3.4 12/220 0005 0005 2107 Chemistry Sodium (134 - [...] - 5.0 g/dL) 4.30 Laboratory Tests 12/22 429 Hematology WBC (4.5 - 11.0 x10 3/uL) [...] (Auto) (14.0 - 32.0 %) 2.6 L Colquitt % (Auto) (4.8 - 9.0 %) 7.5 Eos % (Auto) (0.3 - 3.7 %) 0.1 L Baso % (Auto) (0.0 - 2.0 %) 0.1 Neut # (Auto) (2.0 - 7.6 x10 3/uL) 7.98 H Lymph # (Auto) (1.0 - 3.8 x10 3/uL) 0.23 L [place] # (Auto) (0.1 - 0.8 x10 3/uL) 0.67 Eos # (Auto) (0.0 - 0.2 x10 3/uL) 0.01 Baso # (Auto) (0.0 - 0.2 x10 3/uL) 0.01 Abs Immat Gran (auto) (0.00 - 0.03 x10 3/uL) 0.07 H Add Manual Diff NO Immature Gran % (0.0 - 2.0 %) 0.8 Nucleated RBC % (0 - 0 %) 0.2 H Nucleated RBCs # (Man) (0.0 - 0.1 x10 3/uL) 0.02 Radiology data:Recent Impressions:ULTRASOUND - US RETROPERITONEAL COM 12/21 1800 Report Impression - Status: SIGNED Entered: 12/21/20211927 IMPRESSION: Limited exam. No sonographic abnormality of the kidneys. Impression By: [email or web address] - Haris Chavez M.D.RADIOLOGY - XR CHEST 1 V 12/22 0648 Report Impression - Status: SIGNED Entered: 12/22/2021904 IMPRESSION: 1. Interval worsening pulmonary venous vascular congestion.2. Interval worsening opacity at the right lung/right hemithorax likely representing combination of increasing pulmonary parenchymal opacity at the right mid and lower lung lema and increase in right pleural fluid collection layering over the right lung.3. Interval worsening opacity at the retrocardiac left lower lung field.Impression By: [email or web address] - Ming Gibbs M.D.ULTRASOUND - US SOFT TISSUE TORSO 12/22 1106 Report Impression - Status: SIGNED Entered: 12/22/2021 1125 IMPRESSION: Minimal left and mild right pleural effusions. Impression By: [id number] - Amina Garcia D.O. Results: labs reviewed, rythm personally rev'd, x-ray personally reviewed, current med profile rev'd Treatment Prophylaxis Treatment ProphylaxisOxygen: CPAP/BIPAPLines: arterial, CVC, peripheralDrain(s)/tube(s): Drain(s)/tube(s): chest (x3) Quality: Trauma Gen Surg Current MedicationsCurrent medication review:Home Medications:RIVAROXABAN (XARELTO) 20 MG PO DAILY amLODIPine (NORVASC) [...] DAILY INSULIN DETEMIR (LEVEMIR FlexTouch (15mL)) 50 UNITS SUBQ BID INSULIN LISPRO (HumaLOG CARTRIDGE (15mL)) 0 UNITS SUBQ TID LIRAGLUTIDE (VICTOZA (6mL)) 1.8 MG SUBQ DAILY metFORMIN (GLUCOPHAGE) 1,000 MG PO BID ADALIMUMAB + SUPPLIES (HUMIRA PREFILLED PEN) 40 MG SUBQ Q14D azaTHIOprine (IMURAN) 50 MG PO DAILY I attest that the foregoing medication list in the medical record is true, accurate, and complete to the best of my knowledge. Diagnosis, Assessment PlanHospital course to date:This very pleasant 76-year-old female, from [facility], with past medical history of macular degeneration, obesity, obstructive sleep apnea (CPAP at home), former smoker, hypertension, hyperlipidemia, diabetes, Crohn's disease, chronic atrial fibrillation status post 3 ablations in the past (on Xarelto), pacemaker placement who had a recent admission to the hospital with heart failure symptoms. She has been admitted to the hospital today for elective heartcath. Coronary angiogram showed severe multivessel coronary artery disease suitable for percutaneous intervention. CV surgery called for evaluation. 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 She will benefit from off-pump ROBERTS to LAD and pericardiotomy. Dr. Romero explainedto the patient the surgery, risks involved, STS score, benefits, complications and alternatives. She acknowledged understanding and is willing to proceedPreop work-up has been initiatedWe will tentatively schedule patient for surgery tomorrow. 12/18 Preop assessment ongoingNo carotid stenosis on ultrasoundCT chest reviewed with Dr. Singhurgery rescheduled for tomorrowNPO after midnight Plan discussed with the patient 12/20 POD 1Patient hemodynamically stable, cardiac index 3.1Required Bipap after extubation yesterday and overnightTrend ABGs- wean bipap as toleratedDecrease milrinone drip to 0.125, and continue vasopressin at 0.02 Urine output marginal- dopamine drip started at 3Creatinine increased to 1.4, monitor strict I and O'sEncourage po intake, incentive spirometer useTry to get patient out of bed to chair today PT/OTMonitor patient closely in the CVICU 12/22/21POD3d/c chest tubesneed to diuresis agressively 40 z11qaxwy needs legs elevatedcxr appears wetd/c swanTPN due to bipapteleflex today keep TPN for now Consultants: cardiology, cardiovascular surgery at 1647 RPT #:[id number] OF REPORTPRProgress [id number]:42:00G.[id number] e for patient [id number]:47:24 ACL 2021-12-22 14:36:00 [id number] gjXRWrbzKE4M [id number]:36:[address] [facility] ([facility])Hospitalist Progress NoteREPORT#:[id number] REPORT STATUS: SignedDATE:12/22/21 TIME: 1435 PATIENT: KIAH GILES UNIT #: [id number]#: [id number] [address] [birth year] AGE: 76 SEX: F ATTEND: Jeffry More AUTHOR: Meryl Rosa MD * ALL edits or amendments must be made on the electronic/computer document * SubjectiveChief complaint:she is on high flow O2. on TPN acute respiratory failure --post CABGHPI: 76 years old female with PMH of macular degeneration, obesity, obstructive sleepapnea (CPAP at home), former smoker, hypertension, hyperlipidemia, diabetes, Crohn's disease, chronic atrial fibrillation status post 3 ablations in the past(on Xarelto), pacemaker placement is admitted to the hospital post cardiac cath . she need CABG . she had sob for years . sob got worse . [place] . she had cath 3 weeks ago . she was reffered to here for stents placement . she had cath yesterday . it show multiple vessels CAD . she is recommend CABG . she still feel sob . no cp no nausea no vomiting no fever no abdominal pain no dizziness . Review of SystemsConstitutional:Denies: fever, lethargy. Respiratory:Reports: SOB. Denies: wheezing. Cardiovascular:Denies: orthopnea, palpitations. GI:Denies: nausea, vomiting. Neuro:Denies: confusion. Objective GeneralVS/I O:Vital Signs: Date Time Temp Pulse Resp B/P B/P Pulse O2 O2 Flow FiO2 Mean Ox Delivery Rate 12/22 1349 36.4 72 16 92 12/22 1345 36.4 72 19 117/58 82 93 12/22 1330 36.4 72 24 109/55 79 94 12/22 1315 36.5 72 13 129/60 87 93 12/22 1300 36.6 81 33 143/76 102 92 12/22 1245 36.6 69 23 137/75 99 93 12/22 1235 36.6 72 20 145/67 96 90 10/10 1230 76 35 10/10 1218 36.6 72 24 128/76 94 91 10/10 1215 36.6 76 25 91 10/10 1201 36.6 46 22 149/117 130 91 10/10 1200 36.6 41 24 91 10/10 1145 36.5 69 22 141/84 106 93 10/10 1130 36.5 72 26 125/64 87 91 10/10 1115 36.5 69 22 121/56 81 92 [...] 2215 36.7 75 25 132/60 87 92 10/09 2208 150/60 83 10/09 2208 36.7 72 25 128/61 88 91 12/210 36.7 72 29 113/61 78 92 12/21 2144 36.7 69 33 172/67 97 93 12/210 36.7 69 27 165/61 87 90 12/21 2114 36.7 69 27 179/59 86 87 12/21 2099 36.7 72 26 147/60 85 96 12/21 [...] scale Measurement Method PATIENT WEIGHT: Weight (lb): 276Weight (oz): 3.83Weight (kg): 125.300 Medications:Active Meds + DC'd Last 24 HrsFurosemide (LASIX 40 mg/4 mL INJECTION) 40 MG Q8H IV Insulin Glargine (Lantus/Semglee) 10 UNIT BID SUBQ Cyanocobalamin (Vitamin B-12 500 mcg tab) 500 MCG DAILY PO Ferrous Sulfate (FERROUS SULFATE) 325 MG DAILY PO Amino Acids/Electrolytes/Dextrose (TPN ADULT- CENTRAL 1000ML) 840 ML 2200 IV Acetylcysteine (MUCOMYST FOR RT) 200 MG RTQ6H NEB Albuterol/Ipratropium (DUONEB) 3 ML RTQ6H NEB Albumin Human (ALBUMINAR 5% 12.5GM/250ML) 12.5 GM Q12H IV Furosemide (LASIX 40 mg/4 mL INJECTION) 40 MG Q12H IV (DC) Bisacodyl (DULCOLAX) 10 MG ONCE PRN RECTAL Insulin Human Lispro (HUMALOG) 0 Q6HR SUBQ Magnesium Hydroxide (MILK OF MAGNESIA) 30 ML ONCE PRN PO (DC) Dextrose/Water (Dextrose 10% 1,000 mL) 1,000 ML ASDIR PRN IV Miscellaneous Information (TPN (Central) PHARMACY TO DOSE) 1 EACH ASDIR IV Clopidogrel Bisulfate (Plavix) 75 MG DAILY PO Polyethylene Glycol (MIRALAX) 17 GM DAILY PO Dopamine HCl/Dextrose (DOPamine 400MG/D5W 250ML) 250 ML ASDIR IV Pantoprazole (PROTONIX) 40 MG DAILY@0600 PO Docusate Sodium (COLACE) 100 MG BID PO Metoprolol Tartrate (LOPRESSOR) 12.5 MG Q12HR PO Sennosides (Senna Lax 8.6 MG TABLET) 17.2 MG BEDTIME PO Milrinone Lactate/Dextrose (MILRINONE 20MG/D5W 100ML) 100 ML ASDIR IV (CKD) Vasopressin (VASOSTRICT 20 Unit/NS 100ML) 100 ML [...] Acetaminophen (TYLENOL) 650 MG Q4H PRN PRN RECTAL Calcium Chloride (CALCIUM CHLORIDE) 1 GM ASDIR PRN IV Dextrose/Water (DEXTROSE 10% IN WATER) 125 ML ASDIR PRN IV (CKD) Dextrose/Water (DEXTROSE 10% IN WATER) 250 ML ASDIR PRN IV (CKD) Epinephrine (ADRENALIN CHLORIDE) 5 MG ASDIR IV Dextrose/Water (DEXTROSE 5% WATER) 245 MLGlucagon (GLUCAGON) 1 MG ASDIR PRN IM Magnesium Sulfate (MAGNESIUM SULFATE 4GM/SWFI 100ML) 100 ML ASDIR PRN IV Magnesium Sulfate (MAGNESIUM SULFATE 2GM/SWFI 50ML) 50 ML ASDIR PRN IV Magnesium Sulfate/Dextrose (MAGNESIUM SULFATE 1GM/D5W 100ML) 100 ML ASDIR PRN IV Nitroglycerin/Dextrose (NITROGLYCERIN 50,000MCG/D5W 250ML) 250 ML ASDIR IV Norepinephrine Bitartrate (NOREPINEPHRINE 8 MG/NS 250 ML) 250 ML TITRATE IV Potassium Chloride (KCL 20MEQ/SWFI 100ML) 100 ML ASDIR PRN IV Sodium Bicarbonate (SODIUM BICARBONATE) 50 MEQ ASDIR PRN IV Sodium Chloride (SODIUM CHLORIDE 0.9%) 1,000 ML .Q20H IV Sodium Chloride (SODIUM CHLORIDE 0.9%) 250 ML Q24H IV Atorvastatin Calcium (LIPITOR) 40 MG 2100 PO Ceftriaxone Sodium (ROCEPHIN 1000MG VIAL) 1,000 MG Q24H IV Sodium Chloride (SODIUM CHLORIDE) 10 MLOndansetron HCl (ZOFRAN) 4 MG Q6H PRN PRN IV Amlodipine Besylate (NORVASC) 5 MG DAILY PO (DC) Vancomycin HCl (VANCOMYCIN HCL) 1,750 MG PREOP ONCALL IV (CKD) Sodium Chloride (NS 0.9%) 500 ML Physical ExamGeneral appearance: alert, awakeHead/Eyes: atraumatic, normal conjunctiva/sclera, normal eyelids/periorb., normocephalicENT: intubatedNeck: full range of motion, non-tender, no JVDCardiovascular: normal heart sounds, regular rate rhythmRespiratory: dyspneic, hypercapnia, hypoxia, on oxygen, clear to auscultationAbdomen: non-tender, normal bowel sounds, soft, no distentionExtremities: moves all, no calf tenderness, no edemaNeuro/[employer]: alertSkin: dry, intact ResultsFindings/Data:Laboratory Tests 12/22 12/22 12/21 12/21 0433 0005 2107 1603Blood Gas Puncture Site Art Line Art Line Art Line Art Line O2 Saturation (90 - 100 %) 96.0 92.5 90.0 96.0 ABG pH (7.35 - 7.45) 7.334 L 7.330 L 7.306 L 7.282 *L ABG pCO2 (35.0 - 45 mmHg) 55.7 *H 51.8 *H 56.1 *H 56.0 *H ABG pO2 (80 - 100.0 mmHg) 88.6 69.4 L 64.8 L 92.5 ABG PO2/FiO2 Ratio (mm/Hg) 147.66 115.66 108.00 92.50 ABG HCO3 (22.0 - 26.0 MMOL/L) 29.7 *H 27.5 H 28.1 *H 26.5 H ABG Total CO2 31.4 29.1 29.8 28.3 ABG Base Excess (-4.0 - 4.0 MMOL/L) 3.8 1.4 1.7 -0.3 ABG Hematocrit (33.0 - 45.0 %) 25 L 24 L 25 L 25 L ABG Hemoglobin (11.0 - 15.0 G/DL) 8.6 L 8.3 L 8.4 L 8.6 L Martin Test N/A Sodium (134 - 147 MEQ/L) 145 142 142 144 Potassium (3.4 - 5.0 MEQ/L) 3.7 4.1 4.4 4.2 Chloride (100 - 108 MEQ/L) 106 106 107 108 Ionized Calcium (1.12 - 1.32 MMOL/L) 1.44 H 1.40 H 1.39 H 1.33 H Lactic Acid [...] - 1.0 mg/dL) 1.4 H 1.6 H 1.5 H POC Glucose (70 - 110 MG/DL) [...] (Auto) (14.0 - 32.0 %) 2.6 L Col[place] % (Auto) (4.8 - 9.0 %) 7.5 Eos % (Auto) (0.3 - 3.7 %) 0.1 L Baso % (Auto) (0.0 - 2.0 %) 0.1 Neut # (Auto) (2.0 - 7.6 x10 3/uL) 7.98 H Lymph # (Auto) (1.0 - 3.8 x10 3/uL) 0.23 L [place] # (Auto) (0.1 - 0.8 x10 3/uL) 0.67 Eos # (Auto) (0.0 - 0.2 x10 3/uL) 0.01 Baso # (Auto) (0.0 - 0.2 x10 3/uL) 0.01 Abs Immat Gran (auto) (0.00 - 0.03 x10 3/uL) 0.07 H Add Manual Diff NO Immature Gran % (0.0 - 2.0 %) 0.8 Nucleated RBC % (0 - 0 %) 0.2 H Nucleated RBCs # (Man) (0.0 - 0.1 x10 3/uL) 0.02 Radiology data:Recent Impressions:RADIOLOGY - XR CHEST 1 V 12/22 0635 Report Impression - Status: SIGNED Entered: 12/22/2021 0905 IMPRESSION: 1. Interval worsening pulmonary venous vascular congestion.2. Interval worsening opacity at the right lung/right hemithorax likely representing combination of increasing pulmonary parenchymal opacity at the right mid and lower lung lema and increase in right pleural fluid collection layering over the right lung.3. Interval worsening opacity at the retrocardiac left lower lung field.Impression By: [email or web address] - Ming Gibbs M.D.ULTRASOUND - US SOFT TISSUE TORSO 12/22 1107 Report Impression - Status: SIGNED Entered: 12/22/2021 1125 IMPRESSION: Minimal left and mild right pleural effusions. Impression By: [email or web address] - Amina Garcia D.O. Treatment Prophylaxis Treatment ProphylaxisDrain(s)/tube(s): Drain(s)/tube(s): chest (x3) Diagnosis, Assessment PlanConsultants: cardiology, cardiovascular surgery Free Text DxA P NotesFree text DxA P notes: 76 years old female with PMH of macular degeneration, obesity, obstructive sleepapnea (CPAP at home), former smoker, hypertension, hyperlipidemia, diabetes, Crohn's disease, chronic atrial fibrillation status post 3 ablations in the past(on Xarelto), pacemaker placement CAD -- multiple vesssels HTNDM HLDCrohn's diseasechronic atrial fibrillation status post 3 ablationsmacular degenerationobesityobstructive sleep apneaacute respiratory failure --post surgery severe mitral valve [...] MVR (31 Magna valve), CABG x 1 (ROBERTS-LAD), ILAA and pericardectomy -- she remain intubated on the vent -- chest tube are in place -on levophed and epinephrine drip -- monitor in CCU 12/20- she was extubated --on bipap now -- NPO --off Levophed/epinephrine, continue vasopressin, inotropes with milrinone, -- chest tube remain in place -- she is stable post surgery 12/21-- she is on high flow O2 -- edema --lasix --chest tube in place --- she is hemodynamic stable -- continue monitor in CCU 12/22- she remain on high O2 CXR show worsening pulmonary venous vascular congestion. --lasix iv tid -- chest tube are out -- off drips -- NPO -- start TPN -- continue monitor in CCU review all image and consultants notes Current Medications Sig/Frankie Start time Last Medication Dose Route Stop [...] 40 MG DAILY@0600 12/18 599 AC PO 11/05 0559 Cefazolin Sodium 3 GM PREOP ONCALL 12/18 0500 CKD Sodium Chloride 250 ML IV 12/18 235 [...] IV 12/18 1158 Sodium Chloride 1,000 ML .[id number] 12/17 1200 AC 12/17 IV 12/17 1839 1404 Sodium Chloride 500 ML ASDIR PRN 12/17 1200 AC IV 12/18 1158 Adenosine 0 .STK-MED ONE 12/17 1052 DC IV Sodium Chloride 50 ML .STK-MED ONE 12/17 1052 DC IV Iopamidol 100 ML .STK-MED ONE 12/17 1034 DC 12/17 IV 12/17 1035 1034 Fentanyl Citrate 0 .STK-MED ONE 12/17 1019 DC 12/17 .ROUTE 1030 Midazolam HCl 0 .STK-MED ONE 12/17 1019 DC 12/17 .ROUTE 1030 Heparin Sodium/ 500 ML .STK-MED ONE 12/17 948 DC 12/17 Sodium Chloride IV 1030 Heparin Sodium 0 .STK-MED ONE 12/18 939 DC 12/17 .ROUTE 1030 Heparin Sodium/ 1,000 ML .STK-MED ONE 12/18 939 DC 12/17 Sodium Chloride IV 1030 Heparin Sodium/ 500 ML .STK-MED ONE 12/18 939 DC 12/17 Sodium Chloride IV 1030 Lidocaine HCl 0 .STK-MED ONE 12/18 939 DC 12/17 .ROUTE 1030 Nitroglycerin/ 250 ML .STK-MED ONE 12/18 939 DC 12/17 Dextrose IV 1030 Verapamil HCl 0 .STK-MED ONE 12/18 939 DC 12/17 IV 1030 Home Medications:RIVAROXABAN (XARELTO) 20 MG PO DAILY amLODIPine (NORVASC) [...] DAILY INSULIN DETEMIR (LEVEMIR FlexTouch (15mL)) 50 UNITS SUBQ BID INSULIN LISPRO (HumaLOG CARTRIDGE (15mL)) 0 UNITS SUBQ TID LIRAGLUTIDE (VICTOZA (6mL)) 1.8 MG SUBQ DAILY metFORMIN (GLUCOPHAGE) 1,000 MG PO BID ADALIMUMAB + SUPPLIES (HUMIRA PREFILLED PEN) 40 MG SUBQ Q14D azaTHIOprine (IMURAN) 50 MG PO DAILY Quality: [facility] Crit Care Current MedicationsCurrent medication review:Home Medications:RIVAROXABAN (XARELTO) 20 MG PO DAILY amLODIPine (NORVASC) [...] DAILY INSULIN DETEMIR (LEVEMIR FlexTouch (15mL)) 50 UNITS SUBQ BID INSULIN LISPRO (HumaLOG CARTRIDGE (15mL)) 0 UNITS SUBQ TID LIRAGLUTIDE (VICTOZA (6mL)) 1.8 MG SUBQ DAILY metFORMIN (GLUCOPHAGE) 1,000 MG PO BID ADALIMUMAB + SUPPLIES (HUMIRA PREFILLED PEN) 40 MG SUBQ Q14D azaTHIOprine (IMURAN) 50 MG PO DAILY I attest that the foregoing medication list in the medical record is true, accurate, and complete to the best of my knowledge. at 2034 RPT #:[id number] OF REPORTPRProgress [id number]:36:00G.[id number] e for patient uhoaIDOAYVUUNUJRYI1251-05-04R19:35:59 HC ACL 2021-12-22 11:31:00 [id number] /uMWlcKI9EMi 303XgIikVJGd0+JNNDJDJujN1314-33-06E16:31:00 [facility] Prog.Note-NutritionREPORT#:[id number] REPORT STATUS: SignedDATE:12/22/21 TIME: 1131 PATIENT: KIAH GILES UNIT #: [id number]#: [id number] [address] [birth year] AGE: 76 SEX: F ATTEND: Jeffry More MDADM AUTHOR: Vanessa Morales [facility] * ALL edits or amendments must be made on the electronic/computer document * Nutrition Support Nutrition SupportMedication therapy: adult PNIndication for treatment: Alberto using an "X" for all appropriate indications: Evidence of PCM and enteral nutrition (EN) not feasible Malnourished surgical patient able to have PN 5-7 days preoperatively and EN not feasible PN for anticipated need of >5-7 days and EN not feasibleX Supplemental PN if unable to meet EN goal within 7-10 days Other: Current therapy:Adult Parenteral Nutrition Custom Fomulation for Central AdministrationDay of therapy:Day 2Weight: Actual weight (kg): 125.3Vital signs/I O:24 hour I O ending at 0700: 12/22 [...] Flow FiO2 Mean Ox Delivery Rate 12/22 0830 36.5 71 28 136/61 88 90 12/22 0815 36.5 69 15 137/63 91 94 12/22 09 36.4 72 31 126/61 88 91 12/22 0845 36.4 71 26 148/60 92 93 12/22 0838 36.4 81 80 93 10 0830 36.5 76 51 152/69 99 93 12/22 0815 36.5 72 26 147/65 93 91 12/22 0814 72 20 91 60 70 12/22 0800 High flow 60 80 nasal cannula 12/22 08 36.5 75 28 150/67 97 90 10 0746 36.5 71 32 149/66 95 89 12/22 0745 36.5 73 30 88 12/22 0730 36.6 75 19 156/64 92 92 12/22 0715 36.6 72 31 161/71 102 90 10 0700 36.6 74 28 157/70 101 90 10/ 0327 75 95 60 10/10 0319 36.9 73 26 109/85 96 84 10/10 0315 36.8 73 30 157/65 93 90 /10 0238 36.8 75 27 122/83 101 95 10/10 0231 111/79 94 10/10 0231 36.8 73 29 155/67 97 91 /10 0230 36.8 72 27 105/76 90 89 10/10 0215 110/82 96 10/ 0215 36.8 72 25 166/70 100 95 [...] 2215 36.7 75 25 132/60 87 92 10/09 2208 150/60 83 10/09 2208 36.7 72 25 128/61 88 91 10/09 2200 36.7 72 29 113/61 78 92 10/ 2145 36.7 69 33 172/67 97 93 10/09 2130 36.7 69 27 165/61 87 90 10/09 2115 36.7 69 27 179/59 86 87 102099 36.7 72 26 147/60 85 96 102044 36.7 69 26 138/53 74 96 102031 69 96 60 102031 96 BiPAP 60 102029 36.7 69 27 142/54 77 92 102014 36.7 73 25 151/56 79 97 101999 BiPAP 60 12/22 1999 36.7 70 27 149/53 75 93 10/ 1945 36.8 69 20 151/52 75 95 10/ 1930 36.8 69 14 145/51 72 96 10/ 1915 36.8 69 15 143/52 73 96 12/21 1900 36.8 71 28 165/56 82 94 12/21 1824 36.8 69 19 156/55 79 96 10 1815 36.9 70 21 155/55 79 96 / 1800 36.9 72 15 139/49 70 98 12/21 1745 37.0 73 17 139/49 70 97 12/21 1730 37.1 72 17 121/43 61 96 12/21 1647 37.2 72 141/46 68 98 12/21 1645 37.2 76 37 131/46 68 98 12/21 1630 37.2 69 152/46 70 98 12/21 1615 37.2 80 180/54 91 97 10 [...] 10/ 1400 75 25 152/58 82 98 10/ 1345 76 25 154/57 82 96 10/ 1335 75 97 60 10/ 1330 69 26 148/53 77 96 10/ 1315 72 25 155/83 100 99 10/ 1300 72 26 147/83 98 98 10/ 1256 72 25 140/81 94 98 12/21 1245 71 29 144/88 100 90 12/21 1215 71 28 166/63 89 93 12/21 1200 37.1 73 30 141/76 95 92 12/21 1145 37.1 74 30 135/57 80 92 Labs:Laboratory Tests 12/22 0214 2120 1155 0315 Chemistry Sodium (134 - 147 mEq/L) 143 145 145 144 144 Potassium (3.4 - 5.0 mEq/L) 4.0 4.3 4.4 4.6 4.8 Chloride (100 - 108 mEq/L) 106 107 108 109 H 108 Carbon Dioxide (21 - 33 mEq/l) 27 26 27 27 28 BUN (7 - 18 mg/dL) 33 H 30 H 29 H 26 H 21 H Creatinine (0.6 - 1.3 mg/dL) 1.3 1.6 H 1.8 H 1.7 H 1.4 H Glucose (70 - 110 [...] Calcium (8.0 - 10.5 mg/dL) 10.4 12/22 429 Phosphorus (2.5 - 4.9 MG/DL) 3.4 12/22 429 Magnesium (1.80 - 2.40 mg/dL) 2.20 12/22 429 Albumin (3.4 - 5.0 g/dL) 4.30 12/22 429 Triglycerides: Test Result Date Time Chemistry Triglycerides [...] 175 H 193 H 139 H Diet: regularCalorie needs:Pending boilermaker pipe fitter assessmentProtein needs:Pending boilermaker pipe fitter assessmentIV access:Right IJ CVCTreatment plan: consult, change regimenRegimen:CAPS Custom Formulation Rate: 35 mL/hr (840 mL/day)Total kcal: 1064 kcal/day Amino acids 80 g/day Dextrose 160 g/dayLipids 20 g/day Sodium chloride 30 mEq/daySodium acetate 30 mEq/dayMagnesium sulfate mEq/dayCalcium gluconate mEq/dayPotassium chloride mEq/dayPotassium acetate mEq/dayPotassium phosphate mmol/daySodium phosphate -- mmol/day MVI 10 mL dailyTrace elements 1 mL daily Insulin, regular -- units Orders outside of TPN:Furosemide 40 mg IV t64rQrumomg glargine 10 units SQ h53gVpqyqk-gykdsyrve sliding scale insulin AC HSOndansetron 4 mg IV q6h PRN (last administered 12/18 at 1229)Pantoprazole 40 mg PO daily 12/21: Furosemide 60 mg IV x1 Rationale:HPI: This 76-year-old female, from [facility], with past medical historyof macular degeneration, obesity, obstructive sleep apnea (CPAP at home), formersmoker, hypertension, hyperlipidemia, diabetes, Crohn's disease, chronic atrial fibrillation (status post 3 ablations in the past and on Xarelto), and pacemakerplacement who had a recent admission to the hospital with heart failure symptoms. She has been admitted to the hospital for elective heart cath. Coronary angiogram showed severe multivessel coronary artery disease not suitable for percutaneous intervention. The patient is now status post CABG x1 and MVR on 12/[address] Romero. Due to the patient s dependence on BiPAP postoperatively, Dr. Romero would like to initiate TPN to meet this patient s nutritional needs. Pharmacy has been consulted for the dosing and monitoring of TPN. 12/22 Assessment and Plan Patient with regular diet. Per discussion on rounds with Dr. Romero, if the patient is consuming an adequate amount of Ensure protein shakes today, can discontinue TPN tomorrow. Macronutrients: Will initiate TPN at 35 mL/hr (840 mL/day).Will increase amino acids and dextrose to 80 g/day and 170 g/day, respectively. Will initiate mjlyzs63 g/day. This will provide 1064 kcal per day. Will advance TPN in the coming days as tolerated. Triglycerides 67 on 12/18; monitor at least weekly while on TPN. Electrolytes: All electrolytes are within normal limits. Electrolytes in TPN as outlined above. Supplement additional electrolytes outside of TPN as indicated. Renal I/O: BUN/SCr 33/1.3 (BUN trending up, SCr now trending down). Urine output with 1335 mL and chest tube output with 430 mL documented over the past 24 hours. Will concentrate TPN as much as possible given recent cardiovascular surgery and need for frequent diuresis. The patient will receive 840 mL/day of fluids from TPN and 100 mL/day from lipids. Hepatic: Tbili 0.50, AST/ALT 22/13, Alk phos 57, and albumin 4.30 on 12/22; monitor at least weekly while on TPN Glycemic Control: Serum blood glucose was 219 mg/dL this morning. Fjryr-vh-tozz glucose has ranged 113-224 mg/dL over the past 24 hours. 14 units of sliding scale insulin administered over the past 24 hours. Will not add insulin to TPN at this time, but will recommend the addition of low-dose long acting insulin asthe patient was taking insulin detemir 50 units SQ BID outpatient. at 1134 [facility] #:[id number] OF REPORTPRProgress [id number]:31:00G.[id number] e for patient zsyvZRPKZGVBGFWQZS2233-65-14W75:34:54 HC ACL 2021-12-22 10:54:00 [id number] eCyswhnZ5OHg U+W10Z79H/F7enHE9FriLxmF1848-05-75T98:54:[address] [facility] ([facility])Nephrology Progress NoteREPORT#:[id number] REPORT STATUS: SignedDATE:12/22/21 TIME: 1054 PATIENT: KIAH GILES UNIT #: [id number]#: [id number] ROOM/BED: 2201-1DOB: [birth year] AGE: 76 SEX: F ATTEND: Jeffry More AUTHOR: Suki Fuchs MD * ALL edits or amendments must be made on the electronic/computer document * SubjectiveChief complaint:chest painHPI:This is a 76-year-old female who has past medical history of hypertension, diabetes, coronary artery disease, atrial fibrillation who presented with worsening shortness of breath and on further work-up was 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 She was withnormal kidney function prior to surgery and after her surgery she began to develop oliguria. Her procedure was done without any complications but after her surgery she did require pressor support for hypotension and she was intubated for respiratory acidosis and hypoxia and she was treated with vancomycin for infection treatment. When she was seen this morning she continued to have hypotension and her heart rate was paced by her permanent pacemaker and her urine output was 20 to 30/h. Her family at bedside denied anyhistory of kidney disease, kidney stone, chronic NSAID use or any urinary complaints. They also endorse that her blood pressure and diabetes were mostly controlled. ppearing comfortable, not in any distress,on oxygen through nasal canula. 10Appearing comfortable, not in any distress,on oxygen through nasal canula. Objective GeneralVS/I O:Vital Signs: Date Time Temp Pulse Resp B/P B/P Pulse O2 O2 Flow FiO2 Mean Ox Delivery Rate 12/22 1800 36.3 69 25 145/65 93 100 12/22 1700 36.2 69 25 132/61 88 95 12/22 1600 36.1 75 8 130/60 86 94 12/22 1501 70 94 50 12/22 1500 36.1 69 23 137/61 88 93 12/22 1442 70 16 93 60 72 12/22 1415 36.3 72 12 93 12/22 1400 36.3 72 19 119/58 83 90 10/10 1349 36.4 72 16 92 10/10 1345 36.4 72 19 117/58 82 93 10/10 1330 36.4 72 24 109/55 79 94 10/10 1315 36.5 72 13 129/60 87 93 10/10 1300 36.6 81 33 143/76 102 92 10/10 1245 81 16 94 60 72 10/10 1245 36.6 69 23 137/75 99 93 10/10 1235 36.6 72 20 145/67 96 90 10/10 1230 76 35 10/10 1218 36.6 72 24 128/76 94 91 10/10 1215 36.6 76 25 91 10/10 1201 36.6 46 22 149/117 130 91 10/10 1200 36.6 41 24 91 10/10 1145 36.5 69 22 141/84 106 93 10/10 1130 36.5 72 26 125/64 87 91 10/10 1115 36.5 69 22 121/56 81 92 [...] 149/66 95 95 10/09 2300 166/66 92 10/ 2300 36.7 76 25 147/67 97 94 24 hour I O ending at 0700: 12/22 0700 12/21 1900 Intake Total 730.00 1506.00 Output Total 925 840 Balance -195.00 666.00 Intake, IV 480.00 786.00 Intake, Oral 250 720 Output, Chest 160 270 Tube Drainage Output, Urine 765 570 Patient 125.3 kg Weight Weight Standing scale Measurement Method PATIENT WEIGHT: Weight (lb): 276Weight (oz): 3.83Weight (kg): 125.300 Physical ExamGeneral appearance: alert, awake, orientedHead/eyes: atraumatic, normocephalicENT: ET tubeNeck: no JVD, no lymphadenopathyCardiovascular: normal heart sounds, regular rate and rhythmRespiratory: aerating well, clear to auscultationAbdomen: soft, no pulsatile massGenitourinary: urinary catheterExtremities: pitting edema, no gangrene, no swelling Treatment Prophylaxis Treatment ProphylaxisDrain(s)/tube(s): Drain(s)/tube(s): chest (x3) Diagnosis, Assessment PlanFree Text A P:This is a 76-year-old female known to have hypertension, diabetes, atrial fibrillation, s/p permanent pacemaker and history of ablation presenting with shortness of breath and 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 Nephrology is following for: 1. Acute kidney injury: Most likely it is prerenal (cardiorenal), she has been hypotensive postoperatively with requirement for pressor support and inotropic support. Plan is to increase inotropic support or pressor support to bring meanarterial pressure above 65 and give albumin with Lasix to see if it helps him diurese. If he does not respond to higher dose Lasix with albumin then I will consider starting him on CRRT to prevent hyper volemia. 2. Hypervolemia: Plan is to give Lasix and if he does not respond to start him on CRRT for extra fluid removal. 3. His electrolytes were all reviewed to be in normal range plan was to monitorand replace as needed. 4. He was receiving vancomycin so plan was to monitor vancomycin trough levels to prevent ATN. . Acute kidney injury: Most likely it is prerenal (cardiorenal), she has been hypotensive postoperatively with requirement for pressor support and inotropic support. She responded to Lasix after her blood pressure improved with higher dose vasopressin and she was given albumin. Plan was to continue twice a day Lasix and albumin for hypervolemia. 2. Hypervolemia: Plan is to give Lasix with albumin twice daily and increase dose if needed. 3. His electrolytes were all reviewed to be in normal range plan was to monitorand replace as needed. 4. He was receiving vancomycin so plan was to monitor vancomycin trough levels to prevent ATN. 12/22 1. Acute kidney injury: Most likely it is prerenal (cardiorenal), she has been hypotensive postoperatively with requirement for pressor support and inotropic support. She responded to Lasix after her blood pressure improved with higher dose vasopressin and she was given albumin. Plan was to continue Lasix and albumin for hypervolemia.Plan to increase dose to reach goal of 1 L negative Q12H. 2. Hypervolemia: Plan is to give Lasix with albumin and increase dose if needed. 3. His electrolytes were all reviewed to be in normal range plan was to monitorand replace as needed. 4. He was receiving vancomycin so plan was to monitor vancomycin trough levels to prevent ATN. Consultants: cardiology, cardiovascular surgery at 2301 RPT #:[id number] OF REPORTPRProgress [id number]:54:00G.[id number] e for patient glvmUJNKTWGOZTSWQO8623-67-89K76:01:32 ACL 2021-12-22 10:43:00 [id number]/tSjjfNNm50t90Y3Znd c3NFYW072kdQ wgXHMxUnaS/PhMaOq3FFZiUT4575-62-30K82:43:[address] [facility] ([facility])Adult General ConsultationREPORT#:[id number] REPORT STATUS: SignedDATE:12/22/21 TIME: 1043 PATIENT: KIAH GILES UNIT #: [id number]#: [id number] [address] [birth year] AGE: 76 SEX: F ATTEND: Jeffry More AUTHOR: Herberth Pantoja * ALL edits or amendments must be made on the electronic/computer document * History of Present IllnessReason for consult:PMR consultationChief complaint:Weakness post MVR/CABG x1HPI:76-year-old female with PMH of macular degeneration, obesity, RONA, hypertension,hyperlipidemia, diabetes, Crohn's disease, chronic atrial fibrillation, pacemaker placement, cardiac ablation x3 who had a cardiac cath revealing multivessel CAD. Patient had progressive shortness of breath and was brought [facility] CV surgery was consulted and patient had CABG x1 and MVR. Currently she is in CVICU. We have been asked to see her in consultation for physical medicine and rehabilitation evaluation. History - Adult longitudinalPast medical history:Reports: Atrial fibrillation, Diabetes mellitus, Hypertension, Dyslipidemia. Denies: Kidney disease/stones. Additional medical history:Clot degeneration Obstructive sleep apnea Chron's diseasePast surgical history:Reports: Pacemaker (SJM). Additional family history:Reviewed and noncontributoryAlcohol use: Denies EtOH useDrug use: Denies recreational drugsSmoking status for patients 13 years old or older: Never SmokerMedications:Home Medications:Medication Dose/Rte/Freq Days Qty Entered Last Max Daily Dose Reviewed RIVAROXABAN (XARELTO) 20 MG PO DAILY 12/17/21 12/17/21Strength: 20 MG TAB 0800 0801 amLODIPine (NORVASC) 5 MG PO DAILY 12/17/21 12/17/21Strength: 5 MG TAB 0805 0812 cloNIDine (CATAPRES) 0.3 MG PO BID 12/17/21 12/17/21Strength: 0.3 MG TAB 0805 0812 DOXAZOSIN (CARDURA) 12/17/21 12/17/21Strength: 4 MG TAB 0805 0812 LISINOPRIL (ZESTRIL) 12/17/21 12/17/21Strength: 40 MG TAB 0806 0812 OLMESARTAN (BENICAR) 40 MG PO DAILY 12/17/21 12/17/21Strength: 40 MG TAB 0806 0812 PRAVASTATIN (PRAVACHOL) 12/17/21 12/17/21Strength: 10 MG TAB 0806 0812 FUROSEMIDE (LASIX) 10 MG PO DAILY 12/17/21 12/17/21Strength: 20 MG TAB 0807 0812 METOLAZONE (ZAROXOLYN) 10 MG PO DAILY 12/17/21 12/17/21Strength: 10 MG TAB 0808 0812 POTASSIUM CHLORIDE ER 10 MEQ PO DAILY 12/17/21 12/17/21 (MICRO-K) 0808 0812Strength: 10 MEQ CAP.SA OMEPRAZOLE ER 20 MG PO DAILY 12/17/21 12/17/21Strength: 20 MG CAP.DR 0809 0812 GLIMEPIRIDE (AMARYL) 4 MG PO DAILY 12/17/21 12/17/21Strength: 4 MG TAB 0809 0812 INSULIN DETEMIR 50 UNITS SUBQ BID 12/17/21 12/17/21 (LEVEMIR FlexTouch (15mL)) 0810 0812Strength: 100 UNIT/ML (3ML) PEN.INJCTR INSULIN LISPRO 0 UNITS SUBQ TID 12/17/21 12/17/21 (HumaLOG CARTRIDGE 0811 0812 (15mL))Strength: 100 UNIT/MLCARTRIDGE LIRAGLUTIDE 1.8 MG SUBQ DAILY 12/17/21 12/17/21 (VICTOZA (6mL)) 0811 0812Strength: 0.6 MG/0.1 ML (18MG/3 ML) PEN.INJCTR metFORMIN (GLUCOPHAGE) 1,000 MG PO BID 12/17/21 12/17/21Strength: 1,000 MG TAB 0812 0812 ADALIMUMAB + SUPPLIES 40 MG SUBQ Q14D 12/17/21 12/17/21 (HUMIRA PREFILLED PEN) 0812 0812Strength: 40 MG/0.8 ML KIT azaTHIOprine (IMURAN) 50 MG PO DAILY 12/17/21 12/17/21Strength: 50 MG TAB 0812 0812 Current Hospital Medications:Anti-Infective Agents Sig/Frankie Start time Last Medication Dose Route Stop Time Status Admin Ceftriaxone Sodium 1,000 MG Q24H 12/18 1545 AC 12/21 (ROCEPHIN 1000MG IV 12/25 1544 1522 VIAL) Sodium Chloride 10 ML (SODIUM CHLORIDE) Vancomycin HCl 1,750 MG PREOP ONCALL 12/18 0500 CKD (VANCOMYCIN HCL) IV 12/25 0459 Sodium Chloride 500 ML (NS 0.9%) Autonomic Drugs Sig/Frankie Start time Last Medication Dose Route Stop Time Status Admin Albuterol/Ipratropium 3 ML RTQ6H 12/21 1530 AC 12/22 (DUONEB) NEB 01/20 1529 0814 Dopamine HCl/Dextrose 250 ML ASDIR 12/20 08 AC 12/20 (DOPamine 400MG/D5W IV 01/19 075 0829 250ML) Epinephrine 5 MG ASDIR 12/19 111 AC (ADRENALIN CHLORIDE) IV 01/18 111 Dextrose/Water 245 ML (DEXTROSE 5% WATER) Norepinephrine 250 ML TITRATE 12/19 111 AC Bitartrate IV 01/18 111 (NOREPINEPHRINE 8 MG/ NS 250 ML) Blood Derivatives Sig/Frankie Start time Last Medication Dose Route Stop Time Status Admin Albumin Human 12.5 GM Q12H 12/21 1300 AC 12/22 (ALBUMINAR 5% 12.5GM/ IV 12/23 010 0100 250ML) Blood Formation,Coagulation Sig/Frankie Start time Last Medication Dose Route Stop Time Status Admin Ferrous Sulfate 325 MG DAILY 12/22 899 AC (FERROUS SULFATE) PO 01/21 859 Clopidogrel Bisulfate 75 MG DAILY 12/20 899 AC 12/22 (Plavix) PO 01/19 0859 0803 Cardiovascular Drugs Sig/Frankie Start time Last Medication Dose Route Stop Time Status Admin Metoprolol Tartrate 12.5 MG Q12HR 12/19 2099 AC 12/22 (LOPRESSOR) PO 01/18 2059 0803 Milrinone Lactate/ 100 ML ASDIR 12/19 2030 CKD 12/20 Dextrose IV 01/18 2029 0441 (MILRINONE 20MG/D5W 100ML) Amiodarone HCl 200 MG TID 12/19 1500 AC 12/22 (CORDARONE) PO 01/18 1459 0803 Nitroglycerin/ 250 ML ASDIR 12/19 111 AC Dextrose IV 01/18 111 (NITROGLYCERIN 50,000MCG/D5W 250ML) Atorvastatin Calcium 40 MG 2100 12/18 2099 AC 12/21 (LIPITOR) PO 01/17 Amlodipine Besylate 5 MG DAILY 10/06 0900 AC (NORVASC) PO 01/17 0859 Central Nervous System Agents Sig/Frankie Start time Last Medication Dose Route Stop Time Status Admin Aspirin 81 MG DAILY 12/19 1709 AC 12/22 (ASPIRIN) PO 01/18 1708 0803 Gabapentin 200 MG BID 9A 5P 12/19 1700 AC 12/20 (NEURONTIN) PO 12/24 0901 0839 Tramadol HCl 25 MG Q4H PRN PRN 12/19 1230 AC 12/22 (ULTRAM) PO 12/24 1229 0225 Tramadol HCl 50 MG Q4H PRN PRN 12/19 1230 AC 12/22 (ULTRAM) PO 12/24 1229 0714 Acetaminophen 650 MG Q4H PRN PRN 12/19 1115 AC 12/21 (TYLENOL) PO 01/18 1114 0005 Acetaminophen 650 MG Q4H PRN PRN 12/19 111 AC (TYLENOL) RECTAL 01/18 111 Magnesium Sulfate 100 ML ASDIR PRN 12/19 1115 AC (MAGNESIUM SULFATE IV 01/18 1114 4GM/SWFI 100ML) Magnesium Sulfate 50 ML ASDIR PRN 12/19 111 AC (MAGNESIUM SULFATE IV 01/18 1114 2GM/SWFI 50ML) Magnesium Sulfate/ 100 ML ASDIR PRN 12/19 1115 AC 12/22 Dextrose IV 01/18 111 0656 (MAGNESIUM SULFATE 1GM/D5W 100ML) Electrolytic, Caloric, And Nataliia Sig/Frankie Start time Last Medication Dose Route Stop [...] 12/19 1115 AC (CALCIUM CHLORIDE) IV 01/18 1114 Dextrose/Water 125 ML ASDIR PRN 12/19 1115 CKD (DEXTROSE 10% IN IV 01/18 1114 WATER) Dextrose/Water 250 ML ASDIR PRN 12/19 1115 CKD (DEXTROSE 10% IN IV 01/18 111 WATER) Potassium Chloride 100 ML ASDIR PRN 12/19 1115 AC (KCL 20MEQ/SWFI IV 01/18 1114 100ML) Sodium Bicarbonate 50 MEQ ASDIR PRN 12/19 1115 AC (SODIUM BICARBONATE) IV 01/18 1114 Sodium Chloride 1,000 ML .Q20H 12/19 1115 AC 12/21 (SODIUM CHLORIDE IV 01/18 111 0242 0.9%) Sodium Chloride 250 ML Q24H 12/19 1115 AC (SODIUM CHLORIDE IV 01/18 1114 0.9%) Gastrointestinal Drugs Sig/Frankie Start time Last Medication Dose Route Stop Time Status Admin Bisacodyl 10 MG ONCE PRN 12/21 1200 AC (DULCOLAX) RECTAL 01/20 1159 Magnesium Hydroxide 30 ML ONCE PRN 12/21 1200 DC 12/22 (MILK OF MAGNESIA) PO 0802 Polyethylene Glycol 17 GM DAILY 12/20 09 AC 12/22 (MIRALAX) PO 01/19 0859 0803 Pantoprazole 40 MG DAILY@0600 12/20 0600 AC 12/22 (PROTONIX) PO 01/19 0559 0714 Docusate Sodium 100 MG BID 12/19 2099 AC 12/22 (COLACE) PO 01/18 205 0803 Sennosides 17.2 MG BEDTIME 12/19 2100 AC 12/21 (Senna Lax 8.6 MG PO 01/18 2059 2144 TABLET) Ondansetron HCl 4 MG Q6H PRN PRN 12/18 1145 AC 12/22 (ZOFRAN) IV 01/17 1144 0950 Hormones And Synthetic Substit Sig/Frankie Start time Last Medication Dose Route Stop Time Status Admin Insulin Human Lispro 0 Q6HR 12/21 1200 AC 12/22 (HUMALOG) SUBQ 01/20 1159 0656 Insulin Human Lispro 0 AC HS 12/21 1130 DC (HUMALOG) SUBQ 01/20 1129 Vasopressin 100 ML ASDIR 12/19 2030 CKD 12/20 (VASOSTRICT 20 Unit/ IV 01/18 202 2042 NS 100ML) Glucagon 1 MG ASDIR PRN 12/19 1115 AC (GLUCAGON) IM 01/18 1114 Respiratory Tract Agents Sig/Frankie Start time Last Medication Dose Route Stop Time Status Admin Acetylcysteine 200 MG RTQ6H 12/21 1530 AC 12/22 (MUCOMYST FOR RT) NEB 01/20 1529 0814 Skin And Mucous Membrane Agent Sig/Frankie Start time Last Medication Dose Route Stop Time Status Admin Mupirocin 1 APPLIC BID 12/19 1138 AC 12/22 (BACTROBAN 2% 22 GM NASAL 12/23 2100 0804 OINTMENT) Vitamins Sig/Frankie Start time Last Medication Dose Route Stop Time Status Admin Cyanocobalamin 500 MCG DAILY 12/22 09 AC (Vitamin B-12 500 PO 01/21 0859 mcg tab) Other Sig/Frankie Start time Last Medication Dose Route Stop Time Status Admin Miscellaneous 1 EACH ASDIR 12/21 1115 AC Information IV 01/20 111 (TPN (Central) PHARMACY TO DOSE) Allergies:Coded Allergies:ciprofloxacin (From CIPRO) (Severe, JOINT PAIN 12/12/21)morphine (Severe, RASH, SWELLING 12/12/21) Review of SystemsConstitutional:fatigue, generalized weakness. Respiratory:Reports: SOB. Musculoskeletal:extremity swelling. All systems rev neg: except as marked ObjectiveVS/I O:Last Documented: Result Date Time Pulse Ox 90 [...] scale Measurement Method PATIENT WEIGHT: Weight (lb): 276Weight (oz): 3.83Weight (kg): 125.300 General appearance: obese, alert, awake, no acute distressHead/Eyes: atraumatic, clear cornea, EOMIENT: normal dentition, normal ear left, normal ear right, normal noseNeck: full range of motion, non-tender, no lymphadenopathyCardiovascular: normal capillary refill, pedal pulses present, regular rate rhythmRespiratory: decreased breath sounds, On lokesh flow H7Maxwzng: soft, non-tender, no guarding, no reboundGenitourinary: deferredExtremities: edema, no clubbing, no cyanosisMusculoskeletal: normal inspection, no muscle spasmNeuro/CAPTAIN FIRE PREVENTION BUREAU: alertSkin: intact, surgical incision C/D/ILymphatics: no lymphadenopathyPsychiatry: normal affect, normal judgment/insight ResultsFindings/Data:Laboratory Tests: 12/22 12/22 12/22 12/22 0650 0433 0430 0430Blood Gas Puncture Site Art Line O2 Saturation [...] 25 FiO2 (%) 60 Tidal Volume (ml) 550Chemistry Sodium (134 - 147 mEq/L) 143 Potassium [...] g/dL) 6.8 Albumin (3.4 - 5.0 g/dL) 4.30Hematology WBC (4.5 - 11.0 x10 3/uL) 9.0 [...] (Auto) (14.0 - 32.0 %) 2.6 L Colqu[place] % (Auto) (4.8 - 9.0 %) 7.5 Eos % (Auto) (0.3 - 3.7 %) 0.1 L Baso % (Auto) (0.0 - 2.0 %) 0.1 Neut # (Auto) (2.0 - 7.6 x10 3/uL) 7.98 H Lymph # (Auto) (1.0 - 3.8 x10 3/uL) 0.23 L [place] # (Auto) (0.1 - 0.8 x10 3/uL) 0.67 Eos # (Auto) (0.0 - 0.2 x10 3/uL) 0.01 Baso # (Auto) (0.0 - 0.2 x10 3/uL) 0.01 Abs Immat Gran (auto) (0.00 - 0.03 x10 3/uL) 0.07 H Add Manual Diff NO Immature Gran % (0.0 - 2.0 %) 0.8 Nucleated RBC % (0 - 0 %) 0.2 H Nucleated RBCs # (Man) (0.0 - 0.1 x10 3/uL) 0.02 12/22 12/22 12/21 12/21 12/21 0005 0005 2107 1611 1603Blood Gas Puncture Site Art Line Art Line [...] - 26.0 MMOL/L) 27.5 H 28.1 *H 26.5 H ABG Total CO2 29.1 29.8 28.3 ABG Base Excess (-4.0 - 4.0 1.4 1.7 -0.3MMOL/L) ABG Hematocrit (33.0 - 45.0 %) 24 L 25 L 25 L ABG Hemoglobin (11.0 - 15.0 G/DL) 8.3 L 8.4 L 8.6 L Martin Test N/A Sodium (134 - 147 MEQ/L) 142 142 144 Potassium (3.4 - 5.0 MEQ/L) 4.1 4.4 4.2 Chloride (100 - 108 MEQ/L) 106 107 108 Ionized Calcium (1.12 - 1.32 1.40 H 1.39 H 1.33 HMMOL/L) Lactic Acid (0.9 - 1.7 mmol/l) 0.8 L 0.8 L 1.0 Temperature (F) 97.7 98.1 98 O2 Delivery Device BiPAP BiPAP Vapotherm Vent Rate (/MIN) 25 25 FiO2 (%) 60 60 100 Tidal Volume (ml) 550 550Chemistry POC Creatinine (0.6 - 1.0 mg/dL) 1.4 H 1.6 H 1.5 H POC Glucose (70 - 110 MG/DL) 178 H 178 H POC Glucose (mg/dL) (70 - 110 196 H 200 H 175 HMG/DL) 12/21 12/21 1444 1224 Blood Gas Puncture [...] 110 MG/DL) 193 H 139 H Recent Impressions:ULTRASOUND - US RETROPERITONEAL COM 12/21 1800 Report Impression - Status: SIGNED Entered: 12/21/2021 192 IMPRESSION: Limited exam. No sonographic abnormality of the kidneys. Impression By: [email or web address] - Haris Chavez M.D.RADIOLOGY - XR CHEST 1 V 12/22 0635 Report Impression - Status: SIGNED Entered: 12/22/2021 0905 IMPRESSION: 1. Interval worsening pulmonary venous vascular congestion.2. Interval worsening opacity at the right lung/right hemithorax likely representing combination of increasing pulmonary parenchymal opacity at the right mid and lower lung lema and increase in right pleural fluid collection layering over the right lung.3. Interval worsening opacity at the retrocardiac left lower lung field.Impression By: [email or web address] - Ming Gibbs M.D. Diagnosis, Assessment Plan Free Text DxA P NotesFree Text DxA P Notes:Status post CABG x1 status post MVRGeneralized weaknessDeconditioningImpaired ADLs, mobility, gaitpostoperative anemiaMorbid obesityCADHLD Crohn's diseaseChronic A. fibHypoxic respiratory failure Plan:Continue PT/OTOut of bed to chairWork on strength, bed mobility, transfers, gaitIncrease enduranceFall precautionsMonitor p.o. intake and nutritionStrict decubitus precautionsMonitor anemiaAdvance therapies as toleratedBlake drain is to be removed todayWill eventually need IRF when medically ready.Thank you for referral at 1642 RPT #:[id number] OF [id number]:43:00G.[id number] for patient [id number]:43:04 [facility] 2021-12-22 09:35:00 [id number] [id number]:35:00 [facility])Critical Care Progress NoteREPORT#:[id number] REPORT STATUS: SignedDATE:12/22/21 TIME: 0935 PATIENT: KIAH IGLES UNIT #: [id number]#: [id number] [address] [birth year] AGE: 76 SEX: F ATTEND: Jeffry More MDADM AUTHOR: Jd Alva MD * ALL edits or amendments must be made on the electronic/computer document * SubjectiveChief complaint:CABG/MVRHPI:76-year-old morbidly obese female with history of HTN, HL, IDDM, smoking, RONA onCPAP and home O2 as needed, macular degeneration, Crohn's disease on immunosuppressant medications, and chronic Afib s/p ablation and PPM (on Xarelto), who was admitted recently with heart failure symptoms. Patient underwent elective cardiac cath that showed severe multivessel coronary artery disease notsuitable for percutaneous intervention. 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 She went for surgical revascularization today and preop JORDEN revealed severe mitral regurgitation. After discussing new findings with family, patient underwent MVR (31 Magna valve), CABG x 1 (ROBERTS-LAD), ILAA and pericardectomy on 12/19/2021. Has EF of 45%. Crystalloid 1 L, urine output 700, Cell Saver 700. She is a-paced at baseline. Surgery went well and patient was transferred to CVICU postop in a stable surgical condition. She is currentlyintubated on 2 mics of epinephrine, 2 mics of Levophed and insulin drip. CI 3.0,SvO2 in 60%s, CVP 15 and PAP in 60s. Comments:Diuresing, UOP 810CTs output 90/0/70 cctolerating PO intake, on TPNoff bipap, Teleflex 60L/70%OOB in the chairCI 2.4, SvO2 58% Objective GeneralVS/I OLast Documented: Result Date Time Pulse Ox 94 10/10 1600 B/P 130/60 10/10 1600 B/P Mean 86 10/10 1600 Temp 97.0 10/10 1600 Pulse 75 10/10 1600 Resp 8 10/10 1600 FiO2 50 10/10 1501 O2 Flow Rate 60 10/10 1442 O2 Delivery High flow nasal cannula 12/22 0800 24 hour I O ending at 0700: 12/22 0700 12/21 1900 Intake Total 730.00 1506.00 Output Total 925 840 Balance -195.00 666.00 Intake, IV 480.00 786.00 Intake, Oral 250 720 Output, Chest 160 270 Tube Drainage Output, Urine 765 570 Patient 125.3 kg Weight Weight Standing scale Measurement Method PATIENT WEIGHT: Weight (lb): 276Weight (oz): 3.83Weight (kg): 125.300 Medications:Active Meds + DC'd Last 24 HrsFat Emulsion (FAT EMULSION 20% (INTRALIPID)) 100 ML 2200 IV Furosemide (LASIX 40 mg/4 mL INJECTION) 40 MG Q8H IV Insulin Glargine (Lantus/Semglee) 10 UNIT BID SUBQ Cyanocobalamin (Vitamin B-12 500 mcg tab) 500 MCG DAILY PO Ferrous Sulfate (FERROUS SULFATE) 325 MG DAILY PO Amino Acids/Electrolytes/Dextrose (TPN ADULT- CENTRAL 1000ML) 840 ML 2200 IV Acetylcysteine (MUCOMYST FOR RT) 200 MG RTQ6H NEB Albuterol/Ipratropium (DUONEB) 3 ML RTQ6H NEB Albumin Human (ALBUMINAR 5% 12.5GM/250ML) 12.5 GM Q12H IV Furosemide (LASIX 40 mg/4 mL INJECTION) 40 MG Q12H IV (DC) Bisacodyl (DULCOLAX) 10 MG ONCE PRN RECTAL Insulin Human Lispro (HUMALOG) 0 Q6HR SUBQ Magnesium Hydroxide (MILK OF MAGNESIA) 30 ML ONCE PRN PO (DC) Dextrose/Water (Dextrose 10% 1,000 mL) 1,000 ML ASDIR PRN IV Miscellaneous Information (TPN (Central) PHARMACY TO DOSE) 1 EACH ASDIR IV Clopidogrel Bisulfate (Plavix) 75 MG DAILY PO Polyethylene Glycol (MIRALAX) 17 GM DAILY PO Dopamine HCl/Dextrose (DOPamine 400MG/D5W 250ML) 250 ML ASDIR IV Pantoprazole (PROTONIX) 40 MG DAILY@0600 PO Docusate Sodium (COLACE) 100 MG BID PO Metoprolol Tartrate (LOPRESSOR) 12.5 MG Q12HR PO Sennosides (Senna Lax 8.6 MG TABLET) 17.2 MG BEDTIME PO Milrinone Lactate/Dextrose (MILRINONE 20MG/D5W 100ML) 100 ML ASDIR IV (CKD) Vasopressin (VASOSTRICT 20 Unit/NS 100ML) 100 ML [...] Acetaminophen (TYLENOL) 650 MG Q4H PRN PRN RECTAL Calcium Chloride (CALCIUM CHLORIDE) 1 GM ASDIR PRN IV Dextrose/Water (DEXTROSE 10% IN WATER) 125 ML ASDIR PRN IV (CKD) Dextrose/Water (DEXTROSE 10% IN WATER) 250 ML ASDIR PRN IV (CKD) Epinephrine (ADRENALIN CHLORIDE) 5 MG ASDIR IV Dextrose/Water (DEXTROSE 5% WATER) 245 MLGlucagon (GLUCAGON) 1 MG ASDIR PRN IM Magnesium Sulfate (MAGNESIUM SULFATE 4GM/SWFI 100ML) 100 ML ASDIR PRN IV Magnesium Sulfate (MAGNESIUM SULFATE 2GM/SWFI 50ML) 50 ML ASDIR PRN IV Magnesium Sulfate/Dextrose (MAGNESIUM SULFATE 1GM/D5W 100ML) 100 ML ASDIR PRN IV Nitroglycerin/Dextrose (NITROGLYCERIN 50,000MCG/D5W 250ML) 250 ML ASDIR IV Norepinephrine Bitartrate (NOREPINEPHRINE 8 MG/NS 250 ML) 250 ML TITRATE IV Potassium Chloride (KCL 20MEQ/SWFI 100ML) 100 ML ASDIR PRN IV Sodium Bicarbonate (SODIUM BICARBONATE) 50 MEQ ASDIR PRN IV Sodium Chloride (SODIUM CHLORIDE 0.9%) 1,000 ML .Q20H IV Sodium Chloride (SODIUM CHLORIDE 0.9%) 250 ML Q24H IV Atorvastatin Calcium (LIPITOR) 40 MG 2100 PO Ceftriaxone Sodium (ROCEPHIN 1000MG VIAL) 1,000 MG Q24H IV (DC) Sodium Chloride (SODIUM CHLORIDE) 10 MLOndansetron HCl (ZOFRAN) 4 MG Q6H PRN PRN IV Amlodipine Besylate (NORVASC) 5 MG DAILY PO (DC) Vancomycin HCl (VANCOMYCIN HCL) 1,750 MG PREOP ONCALL IV (CKD) Sodium Chloride (NS 0.9%) 500 ML ResultsFindings/data:Laboratory Tests 12/22 12/22 12/22 0920 2944 5804 Blood Gas Puncture Site Central Line Central Line Art Line O2 Saturation (90 - [...] (11.0 - 15.0 G/DL) 11.8 8.1 L 8.6 L Martin Test N/A N/A VBG pH [...] Calcium (1.12 - 1.32 MMOL/L) 1.35 H 1.35 H 1.44 H Lactic Acid (0.9 - [...] Calcium (1.12 - 1.32 MMOL/L) 1.40 H 1.39 H Lactic Acid (0.9 - 1.7 mmol/l) [...] (Auto) (14.0 - 32.0 %) 2.6 L [place] % (Auto) (4.8 - 9.0 %) 7.5 Eos % (Auto) (0.3 - 3.7 %) 0.1 L Baso % (Auto) (0.0 - 2.0 %) 0.1 Neut # (Auto) (2.0 - 7.6 x10 3/uL) 7.98 H Lymph # (Auto) (1.0 - 3.8 x10 3/uL) 0.23 L [place] # (Auto) (0.1 - 0.8 x10 3/uL) 0.67 Eos # (Auto) (0.0 - 0.2 x10 3/uL) 0.01 Baso # (Auto) (0.0 - 0.2 x10 3/uL) 0.01 Abs Immat Gran (auto) (0.00 - 0.03 x10 3/uL) 0.07 H Add Manual Diff NO Immature Gran % (0.0 - 2.0 %) 0.8 Nucleated RBC % (0 - 0 %) 0.2 H Nucleated RBCs # (Man) (0.0 - 0.1 x10 3/uL) 0.02 Laboratory Tests 12/22/21 0430:[Embedded Image Not Available] Radiology dataRecent Impressions:RADIOLOGY - XR CHEST 1 V 12/22 0635 Report Impression - Status: SIGNED Entered: 12/22/2021 0905 IMPRESSION: 1. Interval worsening pulmonary venous vascular congestion.2. Interval worsening opacity at the right lung/right hemithorax likely representing combination of increasing pulmonary parenchymal opacity at the right mid and lower lung lema and increase in right pleural fluid collection layering over the right lung.3. Interval worsening opacity at the retrocardiac left lower lung field.Impression By: [email or web address] - Ming Gibbs M.D.ULTRASOUND - US SOFT TISSUE TORSO 12/22 1107 Report Impression - Status: SIGNED Entered: 12/22/2021 1125 IMPRESSION: Minimal left and mild right pleural effusions. Impression By: [email or web address] - Amina Garcia D.O. Free Text Obj NotesFree Text Obj Notes:General appearance: elderly female in no acute distress, interactiveHEENT: atraumatic, normocephalic, moist mucosal membranesNeck: full range of motion, supple/no meningismusCardiovascular: S1S2 regular rate and rhythm, a-pacedRespiratory: symmetric expansion, no acute respiratory distressAbdomen: soft, obese, non-tender, no distention, no guardingGenitourinary: [place] with clear urineExtremities: pedal pulses palpable, moves all, no clubbing, no cyanosis, LE edemaMusculoskeletal: normal inspection, no muscle spasmNeuro/CAPTAIN FIRE PREVENTION BUREAU: Alert and oriented, CNII-XII grossly intact, no motor deficitsSkin: dry, intact and clean surgery dressing Diagnosis, Assessment PlanProblem list/A P: 1. S/P MVR (mitral valve replacement) 2. S/P CABG x 1 3. Postoperative pulmonary dysfunction after cardiac surgery 4. Severe mitral regurgitation 5. CAD (coronary artery disease) 6. CKD (chronic kidney disease) 7. Immunosuppressed status 8. RONA on CPAP 9. Chronic a-fib 10. Crohn disease Free text A P:76-year-old morbidly obese female with history of HTN, HL, IDDM, smoking, RONA onCPAP and home O2 as needed, macular degeneration, Crohn's disease on immunosuppressant medications, and chronic Afib s/p ablation and PPM (on Xarelto), who was admitted recently with heart failure symptoms. Patient underwent elective cardiac cath that showed severe multivessel coronary artery disease notsuitable for percutaneous intervention. 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 She went for surgical revascularization today and preop JORDEN revealed severe mitral regurgitation. After discussing new findings with family, patient underwent MVR (31 Magna valve), CABG x 1 (ROBERTS-LAD), ILAA and pericardectomy on 12/19/2021. Has EF of 45%. Crystalloid 1 L, urine output 700, Cell Saver 700. She is a-paced at baseline. Surgery went well and patient was transferred to CVICU postop in a stable surgical condition. She is currentlyintubated on 2 mics of epinephrine, 2 mics of Levophed and insulin drip. CI 3.0,SvO2 in 60%s, CVP 15 and PAP in 60s. Neuro: appears intact, keep off sedation, multimodal pain control, minimize narcotics useRespiratory: sats well on minimal vent settings, CPAP trial as tolerated, plan for extubation, may need bipap, obtain serial ABGs, CXR reviewedCardiovascular: Hemodynamically unstable on vasopressors, attempt to wean, monitor PAP and hemodynamic parameters, keep CTs to suctionRenal: strict I/Os, monitor Cr and electrolytes, mild lactic acidosis, trend LA,resuscitate as needed, home diuretics on holdGI: bedside swallow then oral diet after extubation, keep NPO if required bipap,bowel regimenID: trend WBC, continue periop antibiotics per protocol, low threshold for infection work-upHem: acute postop anemia and thrombocytopenia, monitor Hgb and CTs output, no evidence of active bleed, transfuse as needed, holding off on immunosuppressive medsEndo: Blood glucose control with insulin gtt per protocolMisc: PTOT consult, DVT and GI ppx with DAPT and PPI (home med) ppears neuro intact, multimodal pain control, monitor for CO2 narcosis, avoid narcoticsExtubated successfully, required BiPAP for hypoxia and hypercapnia, attempt to wean, obtain serial ABGs, CXR reviewed, has pulmonary edemaImproved hemodynamics, off Levophed/epinephrine, continue vasopressin, inotropeswith milrinone, monitor hemodynamic parameters and wean per CT surgeryMild MARCELLO, Cr uptrending with marginal urine output, started dopamine dripKeep NPO for now while on BiPAP, bowel regimen, monitor LFTsNo fevers or leukocytosis, given periop antibiotics, patient is immunosuppressedHemoglobin and platelets trending down, no evidence of active bleed, monitor CTsoutputBlood glucose control with insulin dripPT/OT and out of bed to chair if toleratedDVT and GI prophylaxis with DAPT and PPI ppears neuro intact, multimodal pain control, monitor for CO2 narcosis, avoid narcoticsBiPAP for hypercapnia, attempt to wean, keep O2 sats >90%, obtain serial ABGs, CXR reviewedHD stable off vasopressors and inotropes, turn off vasopressin, monitor for arrhythmiaMild MARCELLO, Cr trending down, improved urine output with diuresis, off dopamine drip, renal on boardKeep NPO while on BiPAP, otherwise, will start oral diet, start TPN per CT surgeryNo fevers or leukocytosis, complete antibiotic course for UTIHemoglobin and platelets appear stable, no evidence of active bleed, monitor CTsoutputBlood glucose control with sliding scale insulinPT/OT and out of bed to chair if toleratedDVT and GI prophylaxis with DAPT and PPI ppears neuro intact, multimodal pain control, monitor for CO2 narcosis, avoid narcoticsBiPAP for hypercapnia, sats well on Teleflex, keep O2 sats >90%, obtain serial ABGs, CXR reviewed, may need right sided thoracentesis, obtain right chest ultrasoundRemains HD stable off vasopressors and inotropes, no more reported arrhythmia Mild MARCELLO, Cr trending down, improved urine output, continue diuresis per renalOral diet as tolerated if remains off BiPAP, bowel regimen, continue TPN per CT surgeryNo fevers or leukocytosis, complete antibiotic course for UTIHemoglobin and platelets appear stable, no evidence of active bleed, remove chest tubesBlood glucose control with sliding scale insulinPT/OT and OOB as tolerated, obtain IPRDVT and GI prophylaxis with DAPT and PPI Consultants: cardiology, cardiovascular surgeryPlan discussed with: patient, family, consultants, nurse, interdisc care team, pharmacy/pharmacistCritical care time: Minutes: 39 at 0621 RPT #:[id number] OF REPORTPRProgress [id number]:35:00G.[id number] e for patient [id number]:21:54 [facility] 2021-12-22 08:22:00 [id number] ST1AkvVxXF3t EJ6tXhFI+[id number]:22:[address] [facility] ([facility])Cardiology Progress NoteREPORT#:[id number] REPORT STATUS: SignedDATE:12/22/21 TIME: 821 PATIENT: KIAH GILES UNIT #: [id number]#: [id number] [address] [birth year] AGE: 76 SEX: F ATTEND: Alkarra,Jeffry X MDADM AUTHOR: Jillian Lane NP * ALL edits or amendments must be made on the electronic/computer document * SubjectiveChief complaint:tolerating high flow NC Objective GeneralVS/I O:Laboratory Tests 12/22/21 0430:[Embedded Image Not Available] 12/21/21 0214:[Embedded Image Not Available] 12/20/21 2120:[Embedded Image Not Available] 12/20/21 1715:[Embedded Image Not Available] 12/20/21 1155:[Embedded Image Not Available]Current Medications Sig/Frankie Start time Last Medication Dose Route Stop Time Status Admin Furosemide 40 MG Q8H 12/22 1700 AC IV 01/21 1659 Insulin Glargine 10 UNIT BID 12/22 1130 AC 12/22 SUBQ 01/21 1129 1135 Cyanocobalamin 500 MCG [...] Hydroxide 30 ML ONCE PRN 12/21 1200 DC 12/22 PO 0802 Dextrose/Water 1,000 ML ASDIR PRN 12/21 1145 AC IV 01/20 1144 Insulin Human Lispro 0 AC HS 12/21 1130 DC SUBQ 01/20 1129 Miscellaneous 1 EACH ASDIR 12/21 1115 AC Information IV 01/20 1114 Clopidogrel Bisulfate 75 MG DAILY 12/20 0900 AC 12/22 PO 01/19 0859 0803 Polyethylene Glycol 17 GM DAILY 12/20 09 AC 12/22 PO 01/19 0859 0803 Dopamine HCl/Dextrose 250 ML ASDIR 12/20 08 AC 12/20 IV 01/19 0759 0829 Pantoprazole 40 MG DAILY@0600 12/20 06 AC 12/22 PO 01/19 0559 0714 Docusate Sodium 100 MG BID 12/19 2099 AC 12/22 PO 01/18 205 0803 Metoprolol Tartrate 12.5 MG Q12HR 12/19 2099 AC 12/22 PO 01/18 2059 0803 Sennosides 17.2 MG BEDTIME 12/19 2099 AC 12/21 PO 01/18 2059 214 Milrinone Lactate/ 100 ML ASDIR 12/19 2029 CKD 12/20 Dextrose IV 01/18 2029 0441 Vasopressin 100 ML ASDIR 12/19 2029 CKD 12/20 IV 01/18 2029 204 Aspirin 81 MG DAILY 12/19 1709 AC 12/22 PO 01/18 1708 0803 Gabapentin 200 MG BID 9A 5P 12/19 1700 AC 12/20 PO 12/24 0901 0839 Amiodarone HCl 200 MG TID 12/19 1500 AC 12/22 PO 01/18 1459 0803 Tramadol HCl 25 MG Q4H PRN PRN 12/19 1230 AC 12/22 PO 12/24 1229 0225 Tramadol HCl 50 MG Q4H PRN PRN 12/19 1230 AC 12/22 PO 12/24 1229 1121 Mupirocin 1 APPLIC [...] Sulfate 100 ML ASDIR PRN 12/19 1115 AC IV 01/18 1114 Magnesium Sulfate 50 ML ASDIR PRN 12/19 111 AC IV 01/18 1114 Magnesium Sulfate/ 100 ML ASDIR PRN 12/19 1115 AC 12/22 Dextrose IV 01/18 1114 0656 Nitroglycerin/ 250 ML ASDIR 12/19 1115 AC Dextrose IV 01/18 1114 Norepinephrine 250 ML TITRATE 12/19 1114 AC Bitartrate IV 01/18 1114 Potassium Chloride 100 ML ASDIR PRN 12/19 111 AC IV 01/18 1114 Sodium Bicarbonate 50 MEQ ASDIR PRN 12/19 111 AC IV 01/18 1114 Sodium Chloride 1,000 ML .Q20H 12/19 111 AC 12/21 IV 01/18 1114 0242 Sodium Chloride 250 ML Q24H 12/19 111 AC IV 01/18 1114 Atorvastatin Calcium 40 MG 2100 12/18 2100 AC 12/21 PO 01/17 2059 2144 Ceftriaxone Sodium 1,000 MG Q24H 12/18 1545 AC 12/21 Sodium Chloride 10 ML IV 12/22 1700 1522 Ondansetron HCl 4 MG Q6H PRN PRN 12/18 1145 AC 12/22 IV 01/17 1144 0950 Amlodipine Besylate 5 MG DAILY 12/18 [...] 899 36.4 72 31 126/61 88 91 12/22 844 36.4 71 26 148/60 92 93 10/10 [...] 96 95 10/10 0009 76 93 60 12/22 0000 174/69 99 12/22 0000 36.6 75 26 159/70 100 94 10 2345 167/67 93 12/21 2345 36.7 75 23 149/69 99 96 10/ 2330 167/66 93 12/21 2330 36.8 75 21 134/63 91 95 12/21 2315 169/67 95 12/21 2315 36.7 76 25 149/66 95 95 10/ 2300 166/66 92 10 2300 36.7 76 25 147/67 97 94 [...] 2130 36.7 69 27 165/61 87 90 12/21 2115 36.7 69 27 179/59 86 87 12/21 [...] 1730 37.1 72 17 121/43 61 96 10/ 1647 37.2 72 141/46 68 98 10/ 1645 37.2 76 37 131/46 68 98 10/ 1630 37.2 69 152/46 70 98 10/ 1615 37.2 80 180/54 91 97 10/ 1614 37.2 78 177/44 87 99 10/ 1609 84 20 98 60 100 10/ [...] 10/ 1400 75 25 152/58 82 98 10/ 1345 76 25 154/57 82 96 10/ 1335 75 97 60 10/ 1330 69 26 148/53 77 96 10/ 1315 72 25 155/83 100 99 10/ 1300 72 26 147/83 98 98 10/ 1256 72 25 140/81 94 98 10/ 1245 71 29 144/88 100 90 10/ 1215 71 28 166/63 89 93 10/ 1200 37.1 73 30 141/76 95 92 / 1145 37.1 74 30 135/57 80 92 PATIENT WEIGHT: Weight (lb): 276Weight (oz): 3.83Weight (kg): 125.300 Status post:CABG, MVR, and ILAA Physical ExamGeneral appearance: chronically ill appearing, alert, awake, orientedENT: moist mucosal membranesNeck: no JVDCardiovascular: CV assessment: regular rate and rhythmRespiratory: on oxygen, rhonchiAbdomen: obeseGenitourinary: no flank pain, no urinary catheterUpper extremity: UE assessment: normal temperature, no edemaLower extremity: LE assessment: edemaNeuro/CAPTAIN FIRE PREVENTION BUREAU: alert, 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Skin: dry, intact ResultsRadiology data:Recent Impressions:ULTRASOUND - US RETROPERITONEAL COM 12/21 1800 Report Impression - Status: SIGNED Entered: 12/21/2021 1928 IMPRESSION: Limited exam. No sonographic abnormality of the kidneys. Impression By: [email or web address] - Haris Chavez M.D.RADIOLOGY - XR CHEST 1 V 12/22 0635 Report Impression - Status: SIGNED Entered: 12/22/2021 0905 IMPRESSION: 1. Interval worsening pulmonary venous vascular congestion.2. Interval worsening opacity at the right lung/right hemithorax likely representing combination of increasing pulmonary parenchymal opacity at the right mid and lower lung lema and increase in right pleural fluid collection layering over the right lung.3. Interval worsening opacity at the retrocardiac left lower lung field.Impression By: [email or web address] - Ming Gibbs M.D.ULTRASOUND - US SOFT TISSUE TORSO 12/22 1107 Report Impression - Status: SIGNED Entered: 12/22/2021 1125 IMPRESSION: Minimal left and mild right pleural effusions. Impression By: [email or web address] - Amina Garcia D.O. Diagnosis, Assessment Plan Free Text DxA P NotesFree Text DxA P Notes:Ms Giles is a 76 y/o Femal w/ PMHx: CAD, HLD, T2DM, RONA (CPAP at home), smoker,Crohn's disease, AF s/p ablation (on Xarelto), s/p PPM and lymphedema. Dr. Ramos is consulted for CAD s/p CABG, MVR. - CAD s/p CABG, MVR, and ILAA. post-op per CTS and critical care On Plavix, aspirin, beta-delma, statin volume management per Nephrology - Chr AF s/p PPM/ablation. Rate controlled, paced rhythm. had ILAA during bypass - HTN. bp 120s to 140s- doing better with renal perfusion. creatinine continue to improve avoid hypotension - HLD. On statins. - Crohn's disease. Per IM. -AKIper Nephrology continue supportive care at 1149 at 1553 RPT #:[id number] OF REPORTPRProgress [id number]:22:00G.[id number] e for patient [id number]:49:46 ACL 2021-12-21 13:07:00 [id number]:07:[address] [facility] ([facility]ENTERHospitalist Progress NoteREPORT#:[id number] REPORT STATUS: SignedDATE:12/21/21 TIME: 1307 PATIENT: KIAH GILES UNIT #: [id number]#: [id number] [address] AGE: 76 SEX: F ATTEND: Jeffry More AUTHOR: Meryl Rosa MD * ALL edits or amendments must be made on the electronic/computer document * SubjectiveChief complaint:she is on high flow O2 acute respiratory failure --post CABGHPI: 76 years old female with PMH of macular degeneration, obesity, obstructive sleepapnea (CPAP at home), former smoker, hypertension, hyperlipidemia, diabetes, Crohn's disease, chronic atrial fibrillation status post 3 ablations in the past(on Xarelto), pacemaker placement is admitted to the hospital post cardiac cath . she need CABG . she had sob for years . sob got worse . she was admitted to the hospital in [place] . she had cath 3 weeks ago . she was reffered to here for stents placement . she had cath yesterday . it show multiple vessels CAD . she is recommend CABG . she still feel sob . no cp no nausea no vomiting no fever no abdominal pain no dizziness . Review of SystemsConstitutional:Denies: fever. Respiratory:Reports: SOB. Denies: wheezing. Cardiovascular:Reports: edema. Denies: orthopnea. GI:Denies: nausea, vomiting. Neuro:Denies: dizziness. Objective GeneralVS/I O:Vital Signs: Date Time Temp Pulse Resp B/P B/P Pulse O2 O2 Flow FiO2 Mean Ox Delivery Rate 12/21 1256 72 25 140/81 94 98 12/21 1245 71 29 144/88 100 90 10/09 1215 71 28 166/63 89 93 10/09 1200 37.1 73 30 141/76 95 92 10/09 1145 37.1 74 30 135/57 80 92 10/09 1130 37.1 72 26 143/54 77 89 10/09 1115 37.1 76 42 119/50 72 92 10/09 1100 37.1 69 21 138/42 66 95 10/09 1045 37.1 72 22 141/44 69 95 10/09 1030 37.1 72 18 141/46 70 97 10/09 1015 37.1 75 21 139/52 74 97 10/09 1000 37.1 69 24 138/45 69 97 10/09 0945 37.1 72 25 140/46 69 97 10/09 0933 37.1 75 27 139/47 71 96 10/09 0930 37.1 75 25 152/48 73 97 10/09 0915 37.1 72 26 129/46 69 96 10/09 0900 37.1 69 25 142/48 71 97 10/09 0845 37.2 69 24 145/47 71 97 10/09 0830 37.2 74 21 153/45 72 97 10/09 0815 37.2 72 28 141/36 64 95 10/09 0800 High flow 55 60 nasal cannula 10/ 0800 37.3 75 25 149/46 73 97 10/09 0745 37.4 72 26 148/49 73 94 10/09 0730 37.4 74 18 152/55 84 97 10/09 0715 37.4 69 25 158/53 82 100 10/09 0700 37.4 69 25 171/65 94 100 10/09 0600 37.4 73 25 165/61 88 99 10/09 0500 37.3 72 29 150/55 81 95 10/09 0400 37.4 70 25 173/60 91 99 [...] 78 98 10/08 1999 BiPAP 60 10/08 2000 37.2 75 25 135/48 69 98 [...] scale Measurement Method PATIENT WEIGHT: Weight (lb): 274Weight (oz): 0.55Weight (kg): 124.300 Medications:Active Meds + DC'd Last 24 HrsCyanocobalamin (Vitamin B-12 500 mcg tab) 500 MCG DAILY PO Ferrous Sulfate (FERROUS SULFATE) 325 MG DAILY PO Amino Acids/Electrolytes/Dextrose (TPN ADULT- CENTRAL 1000ML) 840 ML 2200 IV Albumin Human (ALBUMINAR 5% 12.5GM/250ML) 12.5 GM Q12H IV Furosemide (LASIX 40 mg/4 mL INJECTION) 40 MG Q12H IV Bisacodyl (DULCOLAX) 10 MG ONCE PRN RECTAL Insulin Human Lispro (HUMALOG) 0 Q6HR SUBQ Magnesium Hydroxide (MILK OF MAGNESIA) 30 ML ONCE PRN PO Dextrose/Water (Dextrose 10% 1,000 mL) 1,000 ML ASDIR PRN IV Insulin Human Lispro (HUMALOG) 0 AC HS SUBQ (DC) Miscellaneous Information (TPN (Central) PHARMACY TO DOSE) 1 EACH ASDIR IV Albumin Human (ALBUMINAR 25%) 100 ML ONCE ONE IV (DC) Furosemide (LASIX 40 mg/4 mL INJECTION) 60 MG ONCE ONE IV (DC) Albumin Human (ALBUMINAR 25%) 100 ML ONCE ONE IV (DC) Furosemide (LASIX 40 mg/4 mL INJECTION) 60 MG ONCE ONE IV (DC) Clopidogrel Bisulfate (Plavix) 75 MG DAILY PO Polyethylene Glycol (MIRALAX) 17 GM DAILY PO Dopamine HCl/Dextrose (DOPamine 400MG/D5W 250ML) 250 ML ASDIR IV Pantoprazole (PROTONIX) 40 MG DAILY@0600 PO Docusate Sodium (COLACE) 100 MG BID PO Metoprolol Tartrate (LOPRESSOR) 12.5 MG Q12HR PO Sennosides (Senna Lax 8.6 MG TABLET) 17.2 MG BEDTIME PO Milrinone Lactate/Dextrose (MILRINONE 20MG/D5W 100ML) 100 ML ASDIR IV (CKD) Vasopressin (VASOSTRICT 20 Unit/NS 100ML) 100 ML [...] Acetaminophen (TYLENOL) 650 MG Q4H PRN PRN RECTAL Calcium Chloride (CALCIUM CHLORIDE) 1 GM ASDIR PRN IV Chlorhexidine Gluconate (PERIDEX) 15 ML Q2H MM (DC) Dextrose/Water (DEXTROSE 10% IN WATER) 125 ML ASDIR PRN IV (CKD) Dextrose/Water (DEXTROSE 10% IN WATER) 250 ML ASDIR PRN IV (CKD) Epinephrine (ADRENALIN CHLORIDE) 5 MG ASDIR IV Dextrose/Water (DEXTROSE 5% WATER) 245 MLGlucagon (GLUCAGON) 1 MG ASDIR PRN IM Insulin Human Regular (HumuLIN R) 100 UNIT ASDIR IV (DC) Sodium Chloride (SODIUM CHLORIDE 0.9%) 99 MLMagnesium Sulfate (MAGNESIUM SULFATE 4GM/SWFI 100ML) 100 ML ASDIR PRN IV Magnesium Sulfate (MAGNESIUM SULFATE 2GM/SWFI 50ML) 50 ML ASDIR PRN IV Magnesium Sulfate/Dextrose (MAGNESIUM SULFATE 1GM/D5W 100ML) 100 ML ASDIR PRN IV Nitroglycerin/Dextrose (NITROGLYCERIN 50,000MCG/D5W 250ML) 250 ML ASDIR IV Norepinephrine Bitartrate (NOREPINEPHRINE 8 MG/NS 250 ML) 250 ML TITRATE IV Potassium Chloride (KCL 20MEQ/SWFI 100ML) 100 ML ASDIR PRN IV Sodium Bicarbonate (SODIUM BICARBONATE) 50 MEQ ASDIR PRN IV Sodium Chloride (SODIUM CHLORIDE 0.9%) 1,000 ML .Q20H IV Sodium Chloride (SODIUM CHLORIDE 0.9%) 250 ML Q24H IV Atorvastatin Calcium (LIPITOR) 40 MG 2100 PO Ceftriaxone Sodium (ROCEPHIN 1000MG VIAL) 1,000 MG Q24H IV Sodium Chloride (SODIUM CHLORIDE) 10 MLOndansetron HCl (ZOFRAN) 4 MG Q6H PRN PRN IV Amlodipine Besylate (NORVASC) 5 MG DAILY PO Vancomycin HCl (VANCOMYCIN HCL) 1,750 MG PREOP ONCALL IV (CKD) Sodium Chloride (NS 0.9%) 500 ML Physical ExamGeneral appearance: alert, awake, orientedHead/Eyes: atraumatic, normal conjunctiva/sclera, normal eyelids/periorb., normocephalicENT: intubatedNeck: full range of motion, non-tender, no JVDCardiovascular: normal heart sounds, regular rate rhythmRespiratory: dyspneic, hypercapnia, hypoxia, on oxygen, clear to auscultationAbdomen: non-tender, normal bowel sounds, soft, no distentionExtremities: moves all, no calf tenderness, no edemaNeuro/CAPTAIN FIRE PREVENTION BUREAU: alertSkin: dry, intact ResultsFindings/Data:Laboratory Tests 12/21 12/21 12/21 12/20 1224 0210 0102 2119Blood Gas Puncture Site Art Line Art Line [place] Art Line O2 Saturation (90 - 100 %) 73.8 L 96.8 96.0 ABG pH (7.35 - 7.45) 7.227 *L 7.341 L 7.328 L ABG pCO2 (35.0 - 45 mmHg) 65.9 *H 50.1 *H 50.9 *H ABG pO2 (80 - 100.0 mmHg) 47.8 *L 95.7 89.7 ABG PO2/FiO2 Ratio (mm/Hg) 47.80 159.50 149.50 ABG HCO3 (22.0 - 26.0 MMOL/L) 27.4 H 27.1 H 26.7 H ABG Total CO2 29.4 28.7 28.3 ABG Base Excess (-4.0 - 4.0 MMOL/L) -0.2 1.4 0.8 ABG Hematocrit (33.0 - 45.0 %) 26 L 25 L 17 L 23 L ABG Hemoglobin (11.0 - 15.0 G/DL) 8.7 L 8.4 L 5.9 L 7.8 L Martin Test N/A VBG [...] Calcium (1.12 - 1.32 MMOL/L) 1.40 H 1.36 H 1.32 Lactic Acid (0.9 - 1.7 [...] Calcium (1.12 - 1.32 MMOL/L) 1.34 H 1.33 H Lactic Acid (0.9 - 1.7 mmol/l) 0.7 L 0.5 L Respiration Rate (/MIN) 25 25 O2 Delivery Device BiPAP BiPAP Vent Rate (/MIN) 25 25 FiO2 (%) 60 100 Inspiratory Time 0.6 0.6 Tidal Volume (ml) 550 550 PEEP (cmH2O) 6 6 Laboratory Tests 12/21 12/21 12/21 12/21 12/21 1224 0925 0925 0817 9226 Chemistry POC Creatinine (0.6 - 1.0 mg/dL) 1.7 H POC Glucose (70 - 110 MG/DL) 114 H 113 H POC Glucose (mg/dL) (70 - 110 MG/DL) 139 H Ionized Calcium Gigi (1.09 - 1.30 MMOL/L) 1.17 Phosphorus (2.5 - 4.9 MG/DL) 4.5 12/21 12/21 12/21 12/20 12/20 0214 0210 0102 2207 2120Chemistry Sodium (134 - 147 mEq/L) 145 145 [...] - 1.0 mg/dL) 2.0 H 1.9 H 1.9 H POC Glucose (70 - 110 MG/DL) [...] - 32.0 %) 2.9 L 2.4 L [place] % (Auto) (4.8 - 9.0 %) 7.9 9.7 H Eos % (Auto) (0.3 - 3.7 %) 0.1 L 0.1 L Baso % (Auto) (0.0 - 2.0 %) 0.1 0.0 Neut # (Auto) (2.0 - 7.6 x10 3/uL) 8.12 H 6.93 Lymph # (Auto) (1.0 - 3.8 x10 3/uL) 0.27 L 0.19 L [place] # (Auto) (0.1 - 0.8 x10 3/uL) 0.73 0.77 Eos # (Auto) (0.0 - 0.2 x10 3/uL) 0.01 0.01 Baso # (Auto) (0.0 - 0.2 x10 3/uL) 0.01 0.00 Abs Immat Gran (auto) (0.00 - 0.03 x10 3/uL) 0.07 H 0.05 H Add Manual Diff NO NO Immature Gran % (0.0 - 2.0 %) 0.8 0.6 Nucleated RBC % (0 - 0 %) 0.0 0.3 H Nucleated RBCs # (Man) (0.0 - 0.1 x10 3/uL) 0.00 0.02 Immature Plt Fraction (0.9 - 11.2 %) 8.9 8.7 Radiology data:Recent Impressions:RADIOLOGY - XR CHEST 1 V 12/21 0647 Report Impression - Status: SIGNED Entered: 12/21/2021 0700 IMPRESSION: Stable examination. Impression By: [email or web address] - Shemar Barnes M.D. Treatment Prophylaxis Treatment ProphylaxisDrain(s)/tube(s): Drain(s)/tube(s): chest (x3) Diagnosis, Assessment PlanConsultants: cardiology, cardiovascular surgery Free Text DxA P NotesFree text DxA P notes: 76 years old female with PMH of macular degeneration, obesity, obstructive sleepapnea (CPAP at home), former smoker, hypertension, hyperlipidemia, diabetes, Crohn's disease, chronic atrial fibrillation status post 3 ablations in the past(on Xarelto), pacemaker placement CAD -- multiple vesssels HTNDM HLDCrohn's diseasechronic atrial fibrillation status post 3 ablationsmacular degenerationobesityobstructive sleep apneaacute respiratory failure --post surgery severe mitral valve [...] MVR (31 Magna valve), CABG x 1 (ROBERTS-LAD), ILAA and pericardectomy -- she remain intubated on the vent -- chest tube are in place -on levophed and epinephrine drip -- monitor in CCU 12/20- she was extubated --on bipap now -- NPO --off Levophed/epinephrine, continue vasopressin, inotropes with milrinone, -- chest tube remain in place -- she is stable post surgery 12/21-- she is on high flow O2 -- edema --lasix --chest tube in place --- she is hemodynamic stable -- continue monitor in CCU review all image and consultants notes Current Medications Sig/Frankie Start time Last Medication Dose Route Stop [...] Sodium 3 GM PREOP ONCALL 12/18 499 CKD Sodium Chloride 250 ML IV 12/18 2358 [...] IV 12/18 1158 Sodium Chloride 1,000 ML .[id number] 12/17 1200 AC 12/17 IV 12/17 1839 1404 Sodium Chloride 500 ML ASDIR PRN 12/17 1200 AC IV 12/18 1158 Adenosine 0 .STK-MED ONE 12/17 1052 DC IV Sodium Chloride 50 ML .STK-MED ONE 12/17 1052 DC IV Iopamidol 100 ML .STK-MED ONE 12/17 1034 DC 12/17 IV 12/17 1035 1034 Fentanyl Citrate 0 .STK-MED ONE 12/17 1019 DC 12/17 .ROUTE 1030 Midazolam HCl 0 .STK-MED ONE 12/17 1019 DC 12/17 .ROUTE 1030 Heparin Sodium/ 500 ML .STK-MED ONE 12/17 0949 DC 12/17 Sodium Chloride IV 1030 Heparin Sodium 0 .STK-MED ONE 12/17 0840 DC 12/17 .ROUTE 1030 Heparin Sodium/ 1,000 ML .STK-MED ONE 12/17 0840 DC 12/17 Sodium Chloride IV 1030 Heparin Sodium/ 500 ML .STK-MED ONE 12/17 0840 DC 12/17 Sodium Chloride IV 1030 Lidocaine HCl 0 .STK-MED ONE 12/18 939 DC 12/17 .ROUTE 1030 Nitroglycerin/ 250 ML .STK-MED ONE 12/18 939 DC 12/17 Dextrose IV 1030 Verapamil HCl 0 .STK-MED ONE 12/18 939 DC 12/17 IV 1030 Home Medications:RIVAROXABAN (XARELTO) 20 MG PO DAILY amLODIPine (NORVASC) [...] DAILY INSULIN DETEMIR (LEVEMIR FlexTouch (15mL)) 50 UNITS SUBQ BID INSULIN LISPRO (HumaLOG CARTRIDGE (15mL)) 0 UNITS SUBQ TID LIRAGLUTIDE (VICTOZA (6mL)) 1.8 MG SUBQ DAILY metFORMIN (GLUCOPHAGE) 1,000 MG PO BID ADALIMUMAB + SUPPLIES (HUMIRA PREFILLED PEN) 40 MG SUBQ Q14D azaTHIOprine (IMURAN) 50 MG PO DAILY Quality: [facility] Current MedicationsCurrent medication review:Home Medications:RIVAROXABAN (XARELTO) 20 MG PO DAILY amLODIPine (NORVASC) [...] DAILY INSULIN DETEMIR (LEVEMIR FlexTouch (15mL)) 50 UNITS SUBQ BID INSULIN LISPRO (HumaLOG CARTRIDGE (15mL)) 0 UNITS SUBQ TID LIRAGLUTIDE (VICTOZA (6mL)) 1.8 MG SUBQ DAILY metFORMIN (GLUCOPHAGE) 1,000 MG PO BID ADALIMUMAB + SUPPLIES (HUMIRA PREFILLED PEN) 40 MG SUBQ Q14D azaTHIOprine (IMURAN) 50 MG PO DAILY I attest that the foregoing medication list in the medical record is true, accurate, and complete to the best of my knowledge. at [address] [facility] #:[id number] OF REPORTPRProgress [id number]:07:00G.[id number] oskar for patient [id number]:39:16 [facility] 2021-12-21 12:52:00 [id number]/ [id number]/[id number]:52:[address] [facility] ([facility]ENTERNephrology Progress NoteREPORT#:[id number] REPORT STATUS: SignedDATE:12/21/21 TIME: 1252 PATIENT: KIAH GILES UNIT #: [id number]#: [id number] [address] [birth year] AGE: 76 SEX: F ATTEND: Jeffry More AUTHOR: Suki Fuchs MD * ALL edits or amendments must be made on the electronic/computer document * SubjectiveChief complaint:chest painHPI:This is a 76-year-old female who has past medical history of hypertension, diabetes, coronary artery disease, atrial fibrillation who presented with worsening shortness of breath and on further work-up was 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 She was withnormal kidney function prior to surgery and after her surgery she began to develop oliguria. Her procedure was done without any complications but after her surgery she did require pressor support for hypotension and she was intubated for respiratory acidosis and hypoxia and she was treated with vancomycin for infection treatment. When she was seen this morning she continued to have hypotension and her heart rate was paced by her permanent pacemaker and her urine output was 20 to 30/h. Her family at bedside denied anyhistory of kidney disease, kidney stone, chronic NSAID use or any urinary complaints. They also endorse that her blood pressure and diabetes were mostly controlled. ppearing comfortable, not in any distress,on oxygen through nasal canula. Objective GeneralVS/I O:Vital Signs: Date Time Temp Pulse Resp B/P B/P Pulse O2 O2 Flow FiO2 Mean Ox Delivery Rate 12/22 2031 69 96 60 12/22 2031 96 BiPAP 60 12/22 1823 36.8 69 19 156/55 79 96 12/21 1815 36.9 70 21 155/55 79 96 12/21 1800 36.9 72 15 139/49 70 98 12/21 1745 37.0 73 17 139/49 70 97 10/09 1730 37.1 72 17 121/43 61 96 10/09 1647 37.2 72 141/46 68 98 10/09 1645 37.2 76 37 131/46 68 98 10/09 1630 37.2 69 152/46 70 98 10/09 1615 37.2 80 180/54 91 97 10/09 1614 37.2 78 177/44 87 99 10/09 1609 84 20 98 60 100 10/09 1600 37.2 75 172/54 83 100 10/09 1545 37.2 71 26 172/55 85 99 10/09 1530 37.2 70 31 171/54 84 99 10/09 1515 37.2 72 26 170/53 84 100 10/09 1500 70 27 162/48 75 97 10/09 1445 69 25 172/56 88 98 10/09 1430 75 33 159/60 90 97 10/09 1415 69 17 158/56 84 97 10/09 1400 75 25 152/58 82 98 10/09 1345 76 25 154/57 82 96 10/09 1335 75 97 60 10/09 1330 69 26 148/53 77 96 10/09 1315 72 25 155/83 100 99 10/09 1300 72 26 147/83 98 98 10/09 1256 72 25 140/81 94 98 10/09 1245 71 29 144/88 100 90 10/09 1215 71 28 166/63 89 93 10/09 1200 37.1 73 30 141/76 95 92 10/09 1145 37.1 74 30 135/57 80 92 10/09 1130 37.1 72 26 143/54 77 89 10/09 1115 37.1 76 42 119/50 72 92 10/09 1100 37.1 69 21 138/42 66 95 10/09 1045 37.1 72 22 141/44 69 95 10/09 1030 37.1 72 18 141/46 70 97 10/09 1015 37.1 75 21 139/52 74 97 10/09 1000 37.1 69 24 138/45 69 97 10/09 0945 37.1 72 25 140/46 69 97 10/09 0933 37.1 75 27 139/47 71 96 10/09 0930 37.1 75 25 152/48 73 97 10/09 0915 37.1 72 26 129/46 69 96 10/09 0900 37.1 69 25 142/48 71 97 10 0845 37.2 69 24 145/47 71 97 12/21 0830 37.2 74 21 153/45 72 97 12/21 0815 37.2 72 28 141/36 64 95 12/21 0800 High flow 55 60 nasal cannula 12/22 799 37.3 75 25 149/46 73 97 12/21 0745 75 25 97 60 100 12/21 0745 97 High flow 100 nasal cannula 12/21 0645 37.4 72 26 148/49 73 [...] scale Measurement Method PATIENT WEIGHT: Weight (lb): 274Weight (oz): 0.55Weight (kg): 124.300 Physical ExamGeneral appearance: alert, awake, orientedHead/eyes: atraumatic, normocephalicENT: ET tubeNeck: no JVD, no lymphadenopathyCardiovascular: normal heart sounds, regular rate and rhythmRespiratory: aerating well, clear to auscultationAbdomen: soft, no pulsatile massGenitourinary: urinary catheter Treatment Prophylaxis Treatment ProphylaxisDrain(s)/tube(s): Drain(s)/tube(s): chest (x3) Diagnosis, Assessment PlanFree Text A P:This is a 76-year-old female known to have hypertension, diabetes, atrial fibrillation, s/p permanent pacemaker and history of ablation presenting with shortness of breath and 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 Nephrology is following for: 1. Acute kidney injury: Most likely it is prerenal (cardiorenal), she has been hypotensive postoperatively with requirement for pressor support and inotropic support. Plan is to increase inotropic support or pressor support to bring meanarterial pressure above 65 and give albumin with Lasix to see if it helps him diurese. If he does not respond to higher dose Lasix with albumin then I will consider starting him on CRRT to prevent hyper volemia. 2. Hypervolemia: Plan is to give Lasix and if he does not respond to start him on CRRT for extra fluid removal. 3. His electrolytes were all reviewed to be in normal range plan was to monitorand replace as needed. 4. He was receiving vancomycin so plan was to monitor vancomycin trough levels to prevent ATN. . Acute kidney injury: Most likely it is prerenal (cardiorenal), she has been hypotensive postoperatively with requirement for pressor support and inotropic support. She responded to Lasix after her blood pressure improved with higher dose vasopressin and she was given albumin. Plan was to continue twice a day Lasix and albumin for hypervolemia. 2. Hypervolemia: Plan is to give Lasix with albumin twice daily and increase dose if needed. 3. His electrolytes were all reviewed to be in normal range plan was to monitorand replace as needed. 4. He was receiving vancomycin so plan was to monitor vancomycin trough levels to prevent ATN. Consultants: cardiology, cardiovascular surgery at [address] [facility] #:[phone] OF REPORTPRProgress [id number]:52:00G.[id number] e for patient [id number]:25:35 ACL 2021-12-21 11:44:00 [id number]/LtCTOvUlM9A8JnqV+RL+N+Cs prmh2ctsIXLY qf4M5gUiwWGq7nbb//2Mkso21253-76-67T53:44:[address] [facility] ([facility])Critical Care Progress NoteREPORT#:[id number] REPORT STATUS: SignedDATE:12/21/21 TIME: 1144 PATIENT: KIAH GILES UNIT #: [id number]#: [id number] [address] [birth year] AGE: 76 SEX: F ATTEND: Jeffry More MDADM AUTHOR: Jd Alva MD * ALL edits or amendments must be made on the electronic/computer document * SubjectiveChief complaint:CABG/MVRHPI:76-year-old morbidly obese female with history of HTN, HL, IDDM, smoking, RONA onCPAP and home O2 as needed, macular degeneration, Crohn's disease on immunosuppressant medications, and chronic Afib s/p ablation and PPM (on Xarelto), who was admitted recently with heart failure symptoms. Patient underwent elective cardiac cath that showed severe multivessel coronary artery disease notsuitable for percutaneous intervention. 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 She went for surgical revascularization today and preop JORDEN revealed severe mitral regurgitation. After discussing new findings with family, patient underwent MVR (31 Magna valve), CABG x 1 (ROBERTS-LAD), ILAA and pericardectomy on 12/19/2021. Has EF of 45%. Crystalloid 1 L, urine output 700, Cell Saver 700. She is a-paced at baseline. Surgery went well and patient was transferred to CVICU postop in a stable surgical condition. She is currentlyintubated on 2 mics of epinephrine, 2 mics of Levophed and insulin drip. CI 3.0,SvO2 in 60%s, CVP 15 and PAP in 60s. Comments:remains in bed on bipap since yesterdayUOP 50-75/hr, given lasix, total 750 ccCTs output 70/30/30 ccrun of 7 beats of Vtac this carter vasopressin gtt, down to 0.02 unitsoff insulin gtt today Objective GeneralVS/I OLast Documented: Result Date Time Pulse Ox 96 [...] scale Measurement Method PATIENT WEIGHT: Weight (lb): 274Weight (oz): 0.55Weight (kg): 124.300 Medications:Active Meds + DC'd Last 24 HrsCyanocobalamin (Vitamin B-12 500 mcg tab) 500 MCG DAILY PO Ferrous Sulfate (FERROUS SULFATE) 325 MG DAILY PO Amino Acids/Electrolytes/Dextrose (TPN ADULT- CENTRAL 1000ML) 840 ML 2200 IV Bisacodyl (DULCOLAX) 10 MG ONCE PRN RECTAL Insulin Human Lispro (HUMALOG) 0 Q6HR SUBQ Magnesium Hydroxide (MILK OF MAGNESIA) 30 ML ONCE PRN PO Dextrose/Water (Dextrose 10% 1,000 mL) 1,000 ML ASDIR PRN IV Insulin Human Lispro (HUMALOG) 0 AC HS SUBQ (DC) Miscellaneous Information (TPN (Central) PHARMACY TO DOSE) 1 EACH ASDIR IV Albumin Human (ALBUMINAR 25%) 100 ML ONCE ONE IV (DC) Furosemide (LASIX 40 mg/4 mL INJECTION) 60 MG ONCE ONE IV (DC) Albumin Human (ALBUMINAR 25%) 100 ML ONCE ONE IV (DC) Furosemide (LASIX 40 mg/4 mL INJECTION) 60 MG ONCE ONE IV (DC) Clopidogrel Bisulfate (Plavix) 75 MG DAILY PO Polyethylene Glycol (MIRALAX) 17 GM DAILY PO Dopamine HCl/Dextrose (DOPamine 400MG/D5W 250ML) 250 ML ASDIR IV Pantoprazole (PROTONIX) 40 MG DAILY@0600 PO Docusate Sodium (COLACE) 100 MG BID PO Metoprolol Tartrate (LOPRESSOR) 12.5 MG Q12HR PO Sennosides (Senna Lax 8.6 MG TABLET) 17.2 MG BEDTIME PO Milrinone Lactate/Dextrose (MILRINONE 20MG/D5W 100ML) 100 ML ASDIR IV (CKD) Vasopressin (VASOSTRICT 20 Unit/NS 100ML) 100 ML [...] Acetaminophen (TYLENOL) 650 MG Q4H PRN PRN RECTAL Calcium Chloride (CALCIUM CHLORIDE) 1 GM ASDIR PRN IV Chlorhexidine Gluconate (PERIDEX) 15 ML Q2H MM (DC) Dextrose/Water (DEXTROSE 10% IN WATER) 125 ML ASDIR PRN IV (CKD) Dextrose/Water (DEXTROSE 10% IN WATER) 250 ML ASDIR PRN IV (CKD) Epinephrine (ADRENALIN CHLORIDE) 5 MG ASDIR IV Dextrose/Water (DEXTROSE 5% WATER) 245 MLGlucagon (GLUCAGON) 1 MG ASDIR PRN IM Insulin Human Regular (HumuLIN R) 100 UNIT ASDIR IV (DC) Sodium Chloride (SODIUM CHLORIDE 0.9%) 99 MLMagnesium Sulfate (MAGNESIUM SULFATE 4GM/SWFI 100ML) 100 ML ASDIR PRN IV Magnesium Sulfate (MAGNESIUM SULFATE 2GM/SWFI 50ML) 50 ML ASDIR PRN IV Magnesium Sulfate/Dextrose (MAGNESIUM SULFATE 1GM/D5W 100ML) 100 ML ASDIR PRN IV Nitroglycerin/Dextrose (NITROGLYCERIN 50,000MCG/D5W 250ML) 250 ML ASDIR IV Norepinephrine Bitartrate (NOREPINEPHRINE 8 MG/NS 250 ML) 250 ML TITRATE IV Potassium Chloride (KCL 20MEQ/SWFI 100ML) 100 ML ASDIR PRN IV Sodium Bicarbonate (SODIUM BICARBONATE) 50 MEQ ASDIR PRN IV Sodium Chloride (SODIUM CHLORIDE 0.9%) 1,000 ML .Q20H IV Sodium Chloride (SODIUM CHLORIDE 0.9%) 250 ML Q24H IV Atorvastatin Calcium (LIPITOR) 40 MG 2100 PO Ceftriaxone Sodium (ROCEPHIN 1000MG VIAL) 1,000 MG Q24H IV Sodium Chloride (SODIUM CHLORIDE) 10 MLOndansetron HCl (ZOFRAN) 4 MG Q6H PRN PRN IV Amlodipine Besylate (NORVASC) 5 MG DAILY PO Vancomycin HCl (VANCOMYCIN HCL) 1,750 MG PREOP ONCALL IV (CKD) Sodium Chloride (NS 0.9%) 500 ML ResultsFindings/data:Laboratory Tests 12/21 12/21 12/20 12/20 0210 0102 2119 1704Blood Gas Puncture Site Art Line [place] Juanita Art Line Art Line O2 Saturation (90 - 100 %) 96.8 96.0 96.5 ABG pH (7.35 - 7.45) 7.341 L 7.328 L 7.318 L ABG pCO2 (35.0 - 45 mmHg) 50.1 *H 50.9 *H 55.5 *H ABG pO2 (80 - 100.0 mmHg) 95.7 89.7 95.3 ABG PO2/FiO2 Ratio (mm/Hg) 159.50 149.50 158.83 ABG HCO3 (22.0 - 26.0 MMOL/L) 27.1 H 26.7 H 28.5 *H ABG Total CO2 28.7 28.3 30.2 ABG Base Excess (-4.0 - 4.0 MMOL/L) 1.4 0.8 2.4 ABG Hematocrit (33.0 - 45.0 %) 25 L 17 L 23 L 22 L ABG Hemoglobin (11.0 - 15.0 G/DL) 8.4 L 5.9 L 7.8 L 7.5 L Martin Test N/A VBG [...] Calcium (1.12 - 1.32 MMOL/L) 1.36 H 1.32 1.34 H Lactic Acid (0.9 - 1.7 [...] Calcium (1.12 - 1.32 MMOL/L) 1.33 H 1.36 H Lactic Acid (0.9 - 1.7 mmol/l) 0.5 L 0.6 L Temperature (F) 97.3 Respiration Rate (/MIN) 25 O2 Delivery Device BiPAP CPAP Vent Rate (/MIN) 25 25 FiO2 (%) 100 100 Inspiratory Time 0.6 Tidal Volume (ml) 550 550 PEEP (cmH2O) 6 6 Pressure Support (cmH2O) 20 Laboratory Tests 12/2125 0817 0409 0214 0210Chemistry Sodium (134 - 147 mEq/L) 145 Potassium [...] - 1.0 mg/dL) 1.9 H 1.9 H 2.0 H POC Glucose (70 - 110 MG/DL) [...] - 32.0 %) 2.9 L 2.4 L [place] % (Auto) (4.8 - 9.0 %) 7.9 9.7 H Eos % (Auto) (0.3 - 3.7 %) 0.1 L 0.1 L Baso % (Auto) (0.0 - 2.0 %) 0.1 0.0 Neut # (Auto) (2.0 - 7.6 x10 3/uL) 8.12 H 6.93 Lymph # (Auto) (1.0 - 3.8 x10 3/uL) 0.27 L 0.19 L [place] # (Auto) (0.1 - 0.8 x10 3/uL) 0.73 0.77 Eos # (Auto) (0.0 - 0.2 x10 3/uL) 0.01 0.01 Baso # (Auto) (0.0 - 0.2 x10 3/uL) 0.01 0.00 Abs Immat Gran (auto) (0.00 - 0.03 x10 3/uL) 0.07 H 0.05 H Add Manual Diff NO NO Immature Gran % (0.0 - 2.0 %) 0.8 0.6 Nucleated RBC % (0 - 0 %) 0.0 0.3 H Nucleated RBCs # (Man) (0.0 - 0.1 x10 3/uL) 0.00 0.02 Immature Plt Fraction (0.9 - 11.2 %) 8.9 8.7 Laboratory Tests 12/20 1155 Urines Urine Color (YEL/STRAW) YELLOW Urine Appearance (CLEAR) CLOUDY H Urine pH (5.0 - 7.0) 5.0 Ur Specific [place] (1.005 - 1.030) 1.030 Urine Protein (NEGATIVE) 2+ H Urine Glucose (UA) (NEGATIVE) NEGATIVE Urine Ketones (NEGATIVE) 1+ H Urine Blood (NEGATIVE) 4+ H Urine Nitrite (NEGATIVE) NEGATIVE Urine Bilirubin (NEGATIVE) NEGATIVE Urine Urobilinogen (0.2 - 1.0 mg/dL) 0.2 Ur Leukocyte Esterase (NEGATIVE) 3+ H Ur Random Creatinine (mg/dL) 116.2 Ur Random Sodium (MEQ/L) < 10 Laboratory Tests 12/21/21 0214:[Embedded Image Not Available] 12/20/21 2120:[Embedded Image Not Available] 12/20/21 1715:[Embedded Image Not Available] 12/20/21 1155:[Embedded Image Not Available]Microbiology:12/18 1830 URINE: Urine Culture - COMP YEAST12/18 1436 NASAL: MRSA DNA Surveillance Screen - CAN Cancelled: Cancelled via OE: Order Cancelled by Radiology dataRecent Impressions:RADIOLOGY - XR CHEST 1 V 12/21 0647 Report Impression - Status: SIGNED Entered: 12/21/2021 0700 IMPRESSION: Stable examination. Impression By: [email or web address] - Shemar Barnes M.D. Free Text Obj NotesFree Text Obj Notes:General appearance: elderly female in no acute distress, interactiveHEENT: atraumatic, normocephalic, moist mucosal membranesNeck: full range of motion, supple/no meningismusCardiovascular: S1S2 regular rate and rhythm, a-pacedRespiratory: symmetric expansion, no acute respiratory distressAbdomen: soft, obese, non-tender, no distention, no guardingGenitourinary: [place] with clear urineExtremities: pedal pulses palpable, moves all, no clubbing, no cyanosis, LE edemaMusculoskeletal: normal inspection, no muscle spasmNeuro/[employer]: Alert and oriented, CNII-XII grossly intact, no motor deficitsSkin: dry, intact and clean surgery dressing Diagnosis, Assessment PlanProblem list/A P: 1. S/P MVR (mitral valve replacement) 2. S/P CABG x 1 3. Postoperative pulmonary dysfunction after cardiac surgery 4. Severe mitral regurgitation 5. CAD (coronary artery disease) 6. CKD (chronic kidney disease) 7. Immunosuppressed status 8. RONA on CPAP 9. Chronic a-fib 10. Crohn disease Free text A P:76-year-old morbidly obese female with history of HTN, HL, IDDM, smoking, RONA onCPAP and home O2 as needed, macular degeneration, Crohn's disease on immunosuppressant medications, and chronic Afib s/p ablation and PPM (on Xarelto), who was admitted recently with heart failure symptoms. Patient underwent elective cardiac cath that showed severe multivessel coronary artery disease notsuitable for percutaneous intervention. 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 She went for surgical revascularization today and preop JORDEN revealed severe mitral regurgitation. After discussing new findings with family, patient underwent MVR (31 Magna valve), CABG x 1 (ROBERTS-LAD), ILAA and pericardectomy on 12/19/2021. Has EF of 45%. Crystalloid 1 L, urine output 700, Cell Saver 700. She is a-paced at baseline. Surgery went well and patient was transferred to CVICU postop in a stable surgical condition. She is currentlyintubated on 2 mics of epinephrine, 2 mics of Levophed and insulin drip. CI 3.0,SvO2 in 60%s, CVP 15 and PAP in 60s. Neuro: appears intact, keep off sedation, multimodal pain control, minimize narcotics useRespiratory: sats well on minimal vent settings, CPAP trial as tolerated, plan for extubation, may need bipap, obtain serial ABGs, CXR reviewedCardiovascular: Hemodynamically unstable on vasopressors, attempt to wean, monitor PAP and hemodynamic parameters, keep CTs to suctionRenal: strict I/Os, monitor Cr and electrolytes, mild lactic acidosis, trend LA,resuscitate as needed, home diuretics on holdGI: bedside swallow then oral diet after extubation, keep NPO if required bipap,bowel regimenID: trend WBC, continue periop antibiotics, low threshold for infection work-up,treated for UTIHem: acute postop anemia and thrombocytopenia, monitor Hgb and CTs output, no evidence of active bleed, transfuse as needed, holding off on immunosuppressive medsEndo: Blood glucose control with insulin gtt per protocolMisc: PTOT consult, DVT and GI ppx with DAPT and PPI (home med) ppears neuro intact, multimodal pain control, monitor for CO2 narcosis, avoid narcoticsExtubated successfully, required BiPAP for hypoxia and hypercapnia, attempt to wean, obtain serial ABGs, CXR reviewed, has pulmonary edemaImproved hemodynamics, off Levophed/epinephrine, continue vasopressin, inotropeswith milrinone, monitor hemodynamic parameters and wean per CT surgeryMild MARCELLO, Cr uptrending with marginal urine output, started dopamine dripKeep NPO for now while on BiPAP, bowel regimen, monitor LFTsNo fevers or leukocytosis, given periop antibiotics, on antibiotics for UTIHemoglobin and platelets trending down, no evidence of active bleed, monitor CTsoutputBlood glucose control with insulin dripPT/OT and out of bed to chair if toleratedDVT and GI prophylaxis with DAPT and PPI ppears neuro intact, multimodal pain control, monitor for CO2 narcosis, avoid narcoticsBiPAP for hypercapnia, attempt to wean, keep O2 sats >90%, obtain serial ABGs, CXR reviewedHD stable off vasopressors and inotropes, turn off vasopressin, monitor for arrhythmiaMild MARCELLO, Cr trending down, improved urine output with diuresis, off dopamine drip, renal on boardKeep NPO while on BiPAP, otherwise, will start oral diet, start TPN per CT surgeryNo fevers or leukocytosis, complete antibiotic course for UTIHemoglobin and platelets appear stable, no evidence of active bleed, monitor CTsoutputBlood glucose control with sliding scale insulinPT/OT and out of bed to chair if toleratedDVT and GI prophylaxis with DAPT and PPI Patient was seen during rounds with CT surgery team, Dr. Romero, and he is in agreement with the plan of care Consultants: cardiology, cardiovascular surgeryPlan discussed with: patient, family, consultants, nurse, interdisc care team, pharmacy/pharmacistCritical care time: Minutes: 37 at 0621 [facility] #:[id number] OF REPORTPRProgress [id number]:44:00G.[id number] e for patient [id number]:21:44 [facility] 2021-12-21 11:37:00 [id number] foh78mBdNZwY [id number]/[id number]:37:00 [facility])Pharmacy Prog.Note-NutritionREPORT#:[id number] REPORT STATUS: SignedDATE:12/21/21 TIME: 1137 PATIENT: KIAH GILES UNIT #: [id number]#: [id number] [address] AGE: 76 SEX: F ATTEND: Jeffry More [facility] AUTHOR: Vanessa Morales [facility] * ALL edits or amendments must be made on the electronic/computer document * Nutrition Support Nutrition SupportMedication therapy: adult PNIndication for treatment: Alberto using an "X" for all appropriate indications: Evidence of PCM and enteral nutrition (EN) not feasible Malnourished surgical patient able to have PN 5-7 days preoperatively and EN not feasible PN for anticipated need of >5-7 days and EN not feasibleX Supplemental PN if unable to meet EN goal within 7-10 days Other: Current therapy:Initiation of TPNDay of therapy:Day 1Weight: Actual weight (kg): 124.3Vital signs/I O:24 hour I O ending at 0700: 12/21 1900 Intake Total 1284.00 Output Total 1040 549 Balance -1040 735.00 Intake, IV 804.00 Intake, Oral 480 Output, Chest 100 296 Tube Drainage Output, Urine 940 253 Patient 124.3 kg 119.748 kg Weight Weight Bed scale Measurement Method Vital Signs: Date Time Temp Pulse Resp B/P B/P Pulse O2 O2 Flow FiO2 Mean Ox Delivery Rate 12/21 932 [...] 37.3 75 25 149/46 73 97 12/21 744 37.4 72 26 148/49 73 94 12/21 729 37.4 74 18 152/55 84 97 12/21 714 37.4 69 25 158/53 82 100 12/21 699 37.4 69 25 171/65 94 100 10/09 0600 37.4 73 25 165/61 88 99 10/09 0500 37.3 72 29 150/55 81 95 10/09 0400 37.4 70 25 173/60 91 99 10/09 0359 69 100 60 10/09 0359 100 BiPAP 60 10/09 0300 37.3 69 25 165/57 84 100 10/09 0200 37.4 73 27 175/63 93 99 10/09 0100 37.3 76 26 162/59 86 99 10/09 0015 26 10/09 0000 37.3 75 172/61 92 99 10/08 2310 74 97 60 10/08 2300 37.3 75 26 173/58 88 97 10/08 2211 155/51 76 10/08 2200 37.3 73 34 113/46 68 85 10/08 2100 37.3 75 26 156/52 78 98 10/08 1999 BiPAP 60 10/08 2000 37.2 75 25 135/48 69 98 [...] 1445 36.8 73 26 98/35 50 100 12/20 1430 36.8 74 25 107/37 53 100 12/20 1415 36.7 72 26 112/43 58 100 12/20 1400 36.7 74 25 109/42 57 100 [...] 1145 36.3 72 25 114/37 54 100 Labs:Laboratory Tests 12/21 12/20 12/20 12/20 12/19 0214 2120 1155 0315 2245 Chemistry Sodium (134 - 147 mEq/L) 145 145 144 144 146 Potassium (3.4 - 5.0 mEq/L) 4.3 4.4 4.6 4.8 4.8 Chloride (100 - 108 mEq/L) 107 108 109 H 108 108 Carbon Dioxide (21 - 33 [...] (1.80 - 2.40 mg/dL) 2.41 H 12/21 0214 Albumin (3.4 - 5.0 g/dL) 4.60 12/21 0214 Triglycerides: Test Result Date Time Chemistry Triglycerides (40 - 150 mg/dL) 67 12/18 0310 Laboratory Tests 12/21 12/21 12/21 12/20 12/20 0817 0409 0210 2207 2119 Chemistry POC Glucose [...] (70 - 110 MG/DL) 175 H Diet: regularCalorie needs:Pending boilermaker pipe fitter assessmentProtein needs:Pending boilermaker pipe fitter assessmentIV access:Right IJ CVCTreatment plan: consult, initiation of therapyRegimen:CAPS Custom Formulation Rate: 35 mL/hr (840 mL/day)Total kcal: 642 kcal/day Amino acids 50 g/day Dextrose 130 g/dayLipids g/day Sodium chloride 30 mEq/daySodium acetate 30 mEq/dayMagnesium sulfate mEq/dayCalcium gluconate mEq/dayPotassium chloride mEq/dayPotassium acetate mEq/dayPotassium phosphate mmol/daySodium phosphate -- mmol/day MVI 10 mL dailyTrace elements 1 mL daily Insulin, regular -- units Orders outside of TPN:Medium-intensity sliding scale insulin AC HSOndansetron 4 mg IV q6h PRN (last administered 12/18 at 1229)Pantoprazole 40 mg PO daily 12/20: Furosemide 10 mg IV x112/20: Furosemide 40 mg IV x112/20: Furosemide 60 mg IV x112/21: Furosemide 60 mg IV x1 Rationale:HPI: This 76-year-old female, [facility], with past medical historyof macular degeneration, obesity, obstructive sleep apnea (CPAP at home), formersmoker, hypertension, hyperlipidemia, diabetes, Crohn's disease, chronic atrial fibrillation (status post 3 ablations in the past and on Xarelto), and pacemakerplacement who had a recent admission to the hospital with heart failure symptoms. She has been admitted to the hospital for elective heart cath. Coronary angiogram showed severe multivessel coronary artery disease not suitable for percutaneous intervention. The patient is now status post CABG x1 and MVR on 12/[address] Romero. Due to the patient s dependence on BiPAP postoperatively, Dr. Romero would like to initiate TPN to meet this patient s nutritional needs. Pharmacy has been consulted for the dosing and monitoring of TPN. 12/21 Assessment and Plan Macronutrients: Will initiate TPN at 35 mL/hr (840 mL/day).Will initiate amino acids and dextrose at 50 g/day and 130 g/day, respectively. Will not yet initiate lipids. This will provide 642 kcal per day. Will advance TPN in the coming days as tolerated. Triglycerides 67 on 12/18; monitor at least weekly while on TPN. Electrolytes:Magnesium slightly elevated at 2.41 this morning. All other electrolytes are within normal limits, but sodium, chloride, and calcium are near the upper limit of normal at 145, 107 and 10.2, respectively. Electrolytes in TPN as outlined above. Supplement additional electrolytes outside of TPN as indicated. Renal I/O: BUN/SCr 30/1.6 (BUN trending up, SCr has been elevated postoperatively, but appears to now be trending down). Urine output with 1193 mLand chest tube output with 395 mL documented over the past 24 hours. Will concentrate TPN as much as possible given recent cardiovascular surgery and needfor frequent diuresis. The patient will receive 840 mL/day of fluids from TPN. Hepatic: Tbili 0.50, AST/ALT 32/12, Alk phos 50, and albumin 4.60) on 12/21; monitor at least weekly while on TPN Glycemic Control: Serum blood glucose was 117 mg/dL this morning. Bxlqj-ou-bjme glucose has ranged 113-191 mg/dL over the past 24 hours. 0 units of sliding scale insulin administered over the past 24 hours. Will change sliding scale insulin from AC HS to q6h with the initiation of TPN. Will not add insulin to TPN at this time. at 1139 RPT #:[id number] OF REPORTPRProgress [id number]:37:00G.[id number] e for patient [id number]:39:53 [facility] 2021-12-21 08:43:00 [id number] cRgAKSHXQiCM 9RhlENj+45ns8AIjNO6TIOWf7752-35-85R59:43:00 [facility] CenterCard[facility] Progress NoteREPORT#:[id number] REPORT STATUS: SignedDATE:12/21/21 TIME: 0843 PATIENT: KIAH GILES UNIT #: [id number]#: [id number] [address] [birth year] AGE: 76 SEX: F ATTEND: Jeffry More AUTHOR: Jayna Gonzales NP * ALL edits or amendments must be made on the electronic/computer document * SubjectiveChief complaint:Patient is on Bipap 25/5, 60%. Patient reports:No: chest pain, shortness of breath. Nursing reports:No: complaints. Comments:Pt is resting w/o distress.Bedside RN reports pt was on Teleflex lasted apprx 1 hr early today.Pt is currently on Vasopressin 0.02 units/min and RHI 2 units/h.Telemetry shows 100% V paced.`CT x 3. Objective GeneralVS/I O:24 hour I O ending at 0700: 10 1900 12/21 0700 Intake Total 1284.00 Output Total 549 1040 Balance 735.00 -1040 Intake, IV 804.00 Intake, Oral 480 Output, Chest 296 100 Tube Drainage Output, Urine 253 940 Patient 119.748 kg 124.3 kg Weight Weight Bed scale Measurement Method Vital Signs: Date Time Temp Pulse Resp B/P B/P Pulse O2 O2 Flow FiO2 Mean Ox Delivery Rate 10/09 0933 98.8 75 27 139/47 71 96 10 0930 98.8 75 25 152/48 73 97 12/21 0915 98.8 72 26 129/46 69 96 10 0900 98.8 69 25 142/48 71 97 10 0845 99.0 69 24 145/47 71 97 12/21 0830 99.0 74 21 153/45 72 97 12/21 0815 99.0 72 28 141/36 64 95 12/21 0800 High flow 55 60 nasal cannula 12/21 0800 99.1 75 25 149/46 73 97 12/21 0745 99.3 72 26 148/49 73 94 12/21 0730 99.3 74 18 152/55 84 97 12/21 0715 99.3 69 25 158/53 82 100 12/21 0700 99.3 69 25 171/65 94 100 12/21 0600 99.3 73 25 165/61 88 99 12/21 0500 99.1 72 29 150/55 81 95 12/21 0400 99.3 70 25 173/60 91 99 12/21 0359 69 100 60 12/21 0359 100 BiPAP 60 12/21 0300 99.1 69 25 165/57 84 100 12/21 0200 99.3 73 27 175/63 93 99 12/21 0100 99.1 76 26 162/59 86 99 12/21 0015 26 12/21 0000 99.1 75 172/61 92 99 12/20 2310 74 97 60 12/20 2300 99.1 75 26 173/58 88 97 12/20 2211 155/51 76 10 2200 99.1 73 34 113/46 68 85 10 2100 99.1 75 26 156/52 78 98 101999 BiPAP 60 12/21 1999 99.0 75 25 135/48 69 98 12/20 1922 75 99 60 12/20 192 99 BiPAP 60 12/20 1915 25 10 1900 99.0 72 90/51 62 97 10 1835 99.0 69 25 114/42 58 100 12/20 1830 99.0 74 25 116/43 60 100 12/20 1815 99.0 75 26 117/42 59 97 10 1800 98.8 72 25 106/40 55 97 12/20 1745 98.8 73 25 106/39 54 99 [...] 1330 97.9 73 25 134/47 68 100 10/08 1315 97.9 72 25 124/47 67 100 10/08 1300 97.7 72 25 129/46 66 100 10/08 1245 97.7 75 25 127/45 65 100 10/08 1239 69 100 100 10/08 1230 97.5 72 25 128/44 63 100 / 1215 97.5 72 25 122/41 60 100 10/08 1200 97.3 73 26 116/37 55 100 10/ 1145 97.3 72 25 114/37 54 100 10/08 1130 97.3 72 25 102/33 48 100 PATIENT WEIGHT: Weight (lb): 274Weight (oz): 0.55Weight (kg): 124.300 Medications:Active Meds + DC'd Last 24 HrsCyanocobalamin (Vitamin B-12 500 mcg tab) 500 MCG DAILY PO Ferrous Sulfate (FERROUS SULFATE) 325 MG DAILY PO Bisacodyl (DULCOLAX) 10 MG ONCE PRN RECTAL Magnesium Hydroxide (MILK OF MAGNESIA) 30 ML ONCE PRN PO Albumin Human (ALBUMINAR 25%) 100 ML ONCE ONE IV (DC) Furosemide (LASIX 40 mg/4 mL INJECTION) 60 MG ONCE ONE IV (DC) Albumin Human (ALBUMINAR 25%) 100 ML ONCE ONE IV (DC) Furosemide (LASIX 40 mg/4 mL INJECTION) 60 MG ONCE ONE IV (DC) Furosemide (LASIX 40 mg/4 mL INJECTION) 0 .STK-MED ONE IV (DC) Furosemide (LASIX 40 mg/4 mL INJECTION) 40 MG ONCE ONE IV (DC) Clopidogrel Bisulfate (Plavix) 75 MG DAILY PO Polyethylene Glycol (MIRALAX) 17 GM DAILY PO Dopamine HCl/Dextrose (DOPamine 400MG/D5W 250ML) 250 ML ASDIR IV Pantoprazole (PROTONIX) 40 MG DAILY@0600 PO Vancomycin HCl (VANCOMYCIN HCL) 1,000 MG Q12H IV (DC) Sodium Chloride (SODIUM CHLORIDE 0.9%) 250 MLDocusate Sodium (COLACE) 100 MG BID PO Metoprolol Tartrate (LOPRESSOR) 12.5 MG Q12HR PO Sennosides (Senna Lax 8.6 MG TABLET) 17.2 MG BEDTIME PO Milrinone Lactate/Dextrose (MILRINONE 20MG/D5W 100ML) 100 ML ASDIR IV (CKD) Vasopressin (VASOSTRICT 20 Unit/NS 100ML) 100 ML [...] Acetaminophen (TYLENOL) 650 MG Q4H PRN PRN RECTAL Albumin Human (ALBUMINAR 25%) 25 GM ASDIR PRN IV (DC) Calcium Chloride (CALCIUM CHLORIDE) 1 GM ASDIR PRN IV Chlorhexidine Gluconate (PERIDEX) 15 ML Q2H MM (DC) Dextrose/Water (DEXTROSE 10% IN WATER) 125 ML ASDIR PRN IV (CKD) Dextrose/Water (DEXTROSE 10% IN WATER) 250 ML ASDIR PRN IV (CKD) Epinephrine (ADRENALIN CHLORIDE) 5 MG ASDIR IV Dextrose/Water (DEXTROSE 5% WATER) 245 MLGlucagon (GLUCAGON) 1 MG ASDIR PRN IM Insulin Human Regular (HumuLIN R) 100 UNIT ASDIR IV (CKD) Sodium Chloride (SODIUM CHLORIDE 0.9%) 99 MLMagnesium Sulfate (MAGNESIUM SULFATE 4GM/SWFI 100ML) 100 ML ASDIR PRN IV Magnesium Sulfate (MAGNESIUM SULFATE 2GM/SWFI 50ML) 50 ML ASDIR PRN IV Magnesium Sulfate/Dextrose (MAGNESIUM SULFATE 1GM/D5W 100ML) 100 ML ASDIR PRN IV Nitroglycerin/Dextrose (NITROGLYCERIN 50,000MCG/D5W 250ML) 250 ML ASDIR IV Norepinephrine Bitartrate (NOREPINEPHRINE 8 MG/NS 250 ML) 250 ML TITRATE IV Potassium Chloride (KCL 20MEQ/SWFI 100ML) 100 ML ASDIR PRN IV Sodium Bicarbonate (SODIUM BICARBONATE) 50 MEQ ASDIR PRN IV Sodium Chloride (SODIUM CHLORIDE 0.9%) 1,000 ML .Q20H IV Sodium Chloride (SODIUM CHLORIDE 0.9%) 250 ML Q24H IV Atorvastatin Calcium (LIPITOR) 40 MG 2100 PO Ceftriaxone Sodium (ROCEPHIN 1000MG VIAL) 1,000 MG Q24H IV Sodium Chloride (SODIUM CHLORIDE) 10 MLOndansetron HCl (ZOFRAN) 4 MG Q6H PRN PRN IV Amlodipine Besylate (NORVASC) 5 MG DAILY PO Vancomycin HCl (VANCOMYCIN HCL) 1,750 MG PREOP ONCALL IV (CKD) Sodium Chloride (NS 0.9%) 500 ML Status post:CABG, MVR, and ILAAPacemaker: epicardial Physical ExamGeneral appearance: sleeping comfortablyENT: moist mucosal membranesNeck: no JVDCardiovascular: CV assessment: regular rate and rhythmRespiratory: On bipapAbdomen: obeseGenitourinary: no flank pain, no urinary catheterUpper extremity: UE assessment: normal temperature, no edemaLower extremity: LE assessment: edema ResultsFindings/Data:Laboratory Tests 12/20 12/20 12/20 12/20 1203 1512 1704 2119 Blood Gas Puncture Site Art Line Art Line Art Line Art Line O2 Saturation (90 - 100 %) 98.8 99.8 96.5 96.0 ABG pH (7.35 - 7.45) 7.291 *L 7.318 L 7.318 L 7.328 L ABG pCO2 (35.0 - 45 mmHg) 59.2 *H 52.0 *H 55.5 *H 50.9 *H ABG pO2 (80 - 100.0 mmHg) 137.8 H 244.0 *H 95.3 89.7 ABG PO2/FiO2 Ratio (mm/Hg) 137.80 244.00 158.83 149.50 ABG HCO3 (22.0 - 26.0 MMOL/L) 28.8 *H 26.7 H 28.5 *H 26.7 H ABG Total CO2 30.7 28.3 30.2 28.3 ABG Base Excess (-4.0 - 4.0 MMOL/L) 2.1 0.6 2.4 0.8 ABG Hematocrit (33.0 - 45.0 %) 24 L 29 L 22 L 23 L ABG Hemoglobin (11.0 - 15.0 G/DL) 8.3 L 9.8 L 7.5 L 7.8 L Martin Test N/A N/A Sodium (134 - 147 MEQ/L) 142 143 142 142 Potassium (3.4 - 5.0 MEQ/L) 4.5 4.2 4.3 4.2 Chloride (100 - 108 MEQ/L) 108 109 H 108 107 Ionized Calcium (1.12 - 1.32 MMOL/L) 1.36 H 1.33 H 1.34 H 1.32 Lactic Acid (0.9 [...] 12/21 0102 0210 Blood Gas Puncture Site [place] Juanita Art Line O2 Saturation (90 - [...] Albumin (3.4 - 5.0 g/dL) 4.60 12/21 0925 Chemistry Ionized Calcium Gigi (1.09 - 1.30 [...] - 32.0 %) 2.4 L 2.9 L [place] % (Auto) (4.8 - 9.0 %) 9.7 H 7.9 Eos % (Auto) (0.3 - 3.7 %) 0.1 L 0.1 L Baso % (Auto) (0.0 - 2.0 %) 0.0 0.1 Neut # (Auto) (2.0 - 7.6 x10 3/uL) 6.93 8.12 H Lymph # (Auto) (1.0 - 3.8 x10 3/uL) 0.19 L 0.27 L [place] # (Auto) (0.1 - 0.8 x10 3/uL) 0.77 0.73 Eos # (Auto) (0.0 - 0.2 x10 3/uL) 0.01 0.01 Baso # (Auto) (0.0 - 0.2 x10 3/uL) 0.00 0.01 Abs Immat Gran (auto) (0.00 - 0.03 x10 3/uL) 0.05 H 0.07 H Add Manual Diff NO NO Immature Gran % (0.0 - 2.0 %) 0.6 0.8 Nucleated RBC % (0 - 0 %) 0.3 H 0.0 Nucleated RBCs # (Man) (0.0 - 0.1 x10 3/uL) 0.02 0.00 Immature Plt Fraction (0.9 - 11.2 %) 8.7 8.9 Laboratory Tests 12/20 1155 Urines Urine Color (YEL/STRAW) YELLOW Urine Appearance (CLEAR) CLOUDY H Urine pH (5.0 - 7.0) 5.0 Ur Specific [place] (1.005 - 1.030) 1.030 Urine Protein (NEGATIVE) [...] (1.80 - 2.40 mg/dL) 2.41 H Radiology data:Recent Impressions:RADIOLOGY - XR CHEST 1 V 12/21 0647 Report Impression - Status: SIGNED Entered: 12/21/2021 0700 IMPRESSION: Stable examination. Impression By: [email or web address] - Shemar Barnes M.D. Results: labs reviewed, vital signs reviewed, vital signs stable, rhythm personally rev'd, x-ray personally reviewed, current med profile rev'dTelemetry Interpretation:100% VPaced. Treatment Prophylaxis Treatment ProphylaxisDrain(s)/tube(s): Drain(s)/tube(s): chest (x3)Pressors and Inotropes: vasopressin (0.02units/min) Diagnosis, Assessment PlanConsultants: cardiology, cardiovascular surgeryPlan discussed with: patient, nurse Free Text DxA P NotesFree Text DxA P Notes:Ms Giles is a 76 y/o Femal w/ PMHx: CAD, HLD, T2DM, RONA (CPAP at home), smoker,Crohn's disease, AF s/p ablation (on Xarelto), s/p PPM and lymphedema; patient is from [place]. Dr. Ramos is consulted for CAD. Patient experienced intermittent nonradiated chest tightness. She reports sob x 1 year, was placed on diuretics; however her sob is not resolved. 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 CTS was consulted. - CAD s/p CABG, MVR, and ILAA. per CTS and critical care On Plavix, aspirin, beta-delma, statin - Chr AF s/p PPM/ablation. Rate controlled, paced rhythm. had ILAA during bypass - HTN. BP improving. Titrate vasopressin as needed. - HLD. On statins. - Crohn's disease. Per IM. Doing better. at 1133 at 1328 RPT #:[id number] OF REPORTPRProgress [id number]:43:00G.[id number] e for patient [id number]:33:22 [facility] 2021-12-21 04:04:00 [id number] QP61fIhLlj2O 8iLSl21+VUpi3mn6rOl0Kf9Y2094-65-67F77:04:315485-2741 [place] [address] PATIENT NAME: KIAH GILES ADMIT DATE: 12/17/21ACCOUNT NO: [id number] ROOM NO: [facility] AGE: 76 REPORT TYPE: eELECTROCARDIOGRAM REPORT SEX: F ADMITTING PHYSICIAN:Jeffry More MD ATTENDING PHYSICIAN:Jeffry More MD Order:[id number] Reason : POD 2 Test Date/Time Stamp:Novinger Dec 21 2021 04:04:45Blood Pressure : / mmHGVent. Rate : 070 BPM Atrial Rate : 077 BPM P-R Int : 000 ms QRS Dur : 162 ms QT Int : 446 ms P-R-T Axes : 000 135 018 degrees QTc Int : 481 ms Suspect unspecified pacemaker failureVentricular-paced rhythmAbnormal ECGWhen compared with ECG of 20-DEC-2021 05:04,Significant changes have occurredConfirmed by MD HAWK GERARD ([id number]) on 12/22/2021 9:38:06 PM Referred By: Colt [place] Confirmed by:SANDY HAWK MD at 2138 PATIENT NAME: KIAH GILES .[id number] vailable for patient [id number]:38:35 [facility] 2021-12-20 15:04:00 [id number] 2dIsCjbUgxD5 MSNF+s9FaugfYNfjJw5tEhoE5826-18-06M72:04:00 [facility] CenterNe[facility] Consultation NoteREPORT#:[id number] REPORT STATUS: SignedDATE:12/20/21 TIME: 1504 PATIENT: KIAH GILES UNIT #: [id number]#: [id number] [address] AGE: 76 SEX: F ATTEND: Jeffry More [facility] AUTHOR: Suki Fuchs MD * ALL edits or amendments must be made on the electronic/computer document * History of Present IllnessRequesting clinician: Dr Munoz for consult:MARCELLO/oliguriaChief complaint:chest painHPI:This is a 76-year-old female who has past medical history of hypertension, diabetes, coronary artery disease, atrial fibrillation who presented with worsening shortness of breath and on further work-up was 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 She was withnormal kidney function prior to surgery and after her surgery she began to develop oliguria. Her procedure was done without any complications but after her surgery she did require pressor support for hypotension and she was intubated for respiratory acidosis and hypoxia and she was treated with vancomycin for infection treatment. When she was seen this morning she continued to have hypotension and her heart rate was paced by her permanent pacemaker and her urine output was 20 to 30/h. Her family at bedside denied anyhistory of kidney disease, kidney stone, chronic NSAID use or any urinary complaints. They also endorse that her blood pressure and diabetes were mostly controlled. History - Adult longitudinalPast medical history:Reports: Atrial fibrillation, Diabetes mellitus, Hypertension, Dyslipidemia. Denies: Kidney disease/stones. Additional medical history:Clot degeneration Obstructive sleep apnea Chron's diseasePast surgical history:Reports: Pacemaker ([facility]). Alcohol use: Denies EtOH useDrug use: Denies recreational drugsSmoking status for patients 13 years old or older: Never SmokerAllergies:Coded Allergies:ciprofloxacin (From CIPRO) (Severe, JOINT PAIN 12/12/21)morphine (Severe, RASH, SWELLING 12/12/21) Review of SystemsUnable to obtain due to:patient intubated Objective GeneralVS/I O:Vital Signs: Date Time Temp Pulse Resp B/P B/P Pulse O2 O2 Flow FiO2 Mean Ox Delivery Rate 12/20 1921 75 99 60 12/20 1921 99 BiPAP 60 12/20 183 37.2 69 25 114/42 58 100 12/20 1830 37.2 74 25 116/43 60 100 12/20 1815 37.2 75 26 117/42 59 97 12/20 1800 37.1 72 25 106/40 55 97 12/20 1745 37.1 73 25 106/39 54 99 12/20 1730 37.1 75 25 113/37 54 99 12/20 1715 37.1 76 26 111/37 54 100 12/20 1713 76 100 60 12/20 1700 37.0 72 25 108/42 58 99 12/20 1645 37.0 73 29 106/42 57 99 [...] 0000 36.9 69 28 104/47 68 98 10/ 2345 117/38 56 10/ 2345 37.0 69 26 124/53 76 96 10/ 2331 105/36 52 10/ 2331 37.0 69 27 134/55 70 93 10/ 2330 37.0 73 27 93/35 48 87 10 2315 109/38 57 10/ 2315 37.0 76 27 110/51 74 95 10 2300 95/34 49 10 2300 37.1 72 34 102/47 68 96 10/ 2245 91/33 48 10/ 2245 37.1 72 27 98/46 67 96 12/19 2235 92 99 60 10 2230 95/34 48 10/ 2230 37.1 72 36 104/47 68 96 12/19 2215 102/38 54 10 2215 37.2 72 27 113/51 74 96 12/19 2200 117/44 62 12/19 2200 37.1 72 26 115/53 76 95 12/19 2145 117/46 64 10 2145 37.1 71 26 122/56 81 93 12/19 2142 124/49 69 12/19 2142 37.1 75 29 120/56 80 92 12/19 2130 99/35 50 10 2130 37.2 69 28 101/47 68 95 12/19 2114 93/36 51 102114 37.2 70 21 100/45 65 96 12/19 2100 94/39 55 12/19 2100 37.2 69 22 104/49 71 97 [...] 24 hour I O ending at 0700: 10/08 0712/19 1900 Intake Total 1563.00 1802.00 Output Total 635 540 Balance 928.00 1262.00 Intake, IV 1443.00 1802.00 Intake, Oral 120 Output, Chest 290 225 Tube Drainage Output, Urine 345 315 PATIENT WEIGHT: Weight (lb): 264Weight (oz): 12.4Weight (kg): 119.748 Physical ExamGeneral appearance: sedatedHead/eyes: atraumatic, normocephalicENT: ET tubeNeck: no JVD, no lymphadenopathyCardiovascular: normal heart sounds, regular rate and rhythmRespiratory: aerating well, clear to auscultationAbdomen: soft, no pulsatile massGenitourinary: urinary catheter Treatment Prophylaxis Treatment ProphylaxisDrain(s)/tube(s): Drain(s)/tube(s): chest (x3) Diagnosis, Assessment PlanConsultants: cardiology, cardiovascular surgery Free Text DxA P NotesFree text DxA P notes:This is a 76-year-old female known to have hypertension, diabetes, atrial fibrillation, s/p permanent pacemaker and history of ablation presenting with shortness of breath and 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 Nephrology is following for: 1. Acute kidney injury: Most likely it is prerenal (cardiorenal), she has been hypotensive postoperatively with requirement for pressor support and inotropic support. Plan is to increase inotropic support or pressor support to bring meanarterial pressure above 65 and give albumin with Lasix to see if it helps him diurese. If he does not respond to higher dose Lasix with albumin then I will consider starting him on CRRT to prevent hyper volemia. 2. Hypervolemia: Plan is to give Lasix and if he does not respond to start him on CRRT for extra fluid removal. 3. His electrolytes were all reviewed to be in normal range plan was to monitorand replace as needed. 4. He was receiving vancomycin so plan was to monitor vancomycin trough levels to prevent ATN. at 1938 RPT #:[id number] OF [id number]:04:00G.[id number] for patient [id number]:38:47 [facility] 2021-12-20 11:57:00 [id number]+cSdRGIj RTuPEXed9Nhk euOrB2ZEUVpoydz7hV7osF3n2976-82-70F89:57:00 [facility])Hospitalist Progress NoteREPORT#:[id number] REPORT STATUS: SignedDATE:12/20/21 TIME: 1157 PATIENT: KIAH GILES UNIT #: [id number]#: [id number] [address] AGE: 76 SEX: F ATTEND: Jeffry More AUTHOR: Meryl Rosa MD * ALL edits or amendments must be made on the electronic/computer document * SubjectiveChief complaint:she is on the bipap .she is low urine output and edema . chest tube remain in place acute respiratory failure --post CABGHPI: 76 years old female with PMH of macular degeneration, obesity, obstructive sleepapnea (CPAP at home), former smoker, hypertension, hyperlipidemia, diabetes, Crohn's disease, chronic atrial fibrillation status post 3 ablations in the past(on Xarelto), pacemaker placement is admitted to the hospital post cardiac cath . she need CABG . she had sob for years . sob got worse . she was admitted to the hospital in [place] . she had cath 3 weeks ago . she was reffered to here for stents placement . she had cath yesterday . it show multiple vessels CAD . she is recommend CABG . she still feel sob . no cp no nausea no vomiting no fever no abdominal pain no dizziness . Review of SystemsUnable to obtain due to:lethargic Objective GeneralVS/I O:Vital Signs: Date Time Temp Pulse Resp B/P B/P Pulse O2 O2 Flow FiO2 Mean Ox Delivery Rate 12/21 723 73 95 65 12/21 723 95 BiPAP 65 12/20 641 36.3 73 27 100/35 49 96 12/20 629 96/33 47 12/20 629 36.3 73 27 91/42 61 96 10/08 [...] 37.2 69 28 101/47 68 95 10/07 5 93/36 51 10/07 2115 37.2 70 21 100/45 65 96 10/07 2100 94/39 55 10/07 2100 37.2 69 22 104/49 71 97 10/07 5 92/39 54 10/07 2044 37.2 73 29 103/44 63 90 12/19 2029 101/41 58 12/19 2029 37.2 69 20 109/46 66 95 12/19 2014 94/36 52 12/19 2014 37.2 69 18 101/48 69 94 101999 BiPAP 60 101999 99/37 55 10/1999 37.1 72 97 BiPAP 60 12/20 1999 37.2 69 21 111/44 63 94 10 1945 98/34 51 10/ 1945 37.1 69 24 103/46 67 90 10/ 1944 90 High flow 10 nasal cannula 12/19 1930 98/35 55 10/ 1930 37.1 73 26 109/47 68 96 12/19 1915 100/34 53 10/ 1915 37.1 70 19 107/51 73 96 10/ 1900 104/35 55 10/ 1900 37.1 71 24 111/49 70 98 10/ 1845 37.0 69 20 104/51 74 99 10/ 1833 37.0 69 24 118/44 65 99 10/ 1830 37.0 69 23 124/49 70 99 / 1818 37.0 69 20 114/43 63 99 10/07 1815 37.0 69 21 116/53 77 94 [...] 1640 36.9 69 19 92/45 64 97 10/07 1635 36.9 71 18 94/45 65 97 10/07 1633 36.9 70 18 73/38 52 97 10/07 1625 71 20 96 10/07 1625 71 96 50 10/07 1618 36.9 74 12 85/49 62 97 10/07 1603 36.8 75 24 108/48 67 100 10/ 1600 36.8 75 24 108/51 74 100 10/ 1548 36.7 72 24 92/47 63 100 10/ 1533 36.7 72 24 101/51 69 100 10/ 1518 36.6 72 24 100/47 64 100 10/ 1503 36.6 75 24 96/46 62 92 10/ 1500 36.6 75 24 103/51 71 96 12/19 1448 36.6 73 24 102/53 72 97 10/ 1433 36.5 72 24 94/46 61 99 / 1418 36.5 77 24 100/54 70 96 10/ 1403 36.4 75 24 111/56 73 100 10/ 1400 36.4 69 25 108/55 76 100 10 1348 36.4 69 24 105/49 67 99 12/19 1300 50 12/19 1300 Ventilator 50 12/19 1259 80 93 60 12/19 1255 60 12/19 1249 93 Ventilator 50 12/19 1249 80 93 50 24 hour I O ending at 0700: 12/20 0700 12/19 1900 Intake Total 1563.00 1802.00 Output Total 635 540 Balance 928.00 1262.00 Intake, IV 1443.00 1802.00 Intake, Oral 120 Output, Chest 290 225 Tube Drainage Output, Urine 345 315 PATIENT WEIGHT: Weight (lb): 264Weight (oz): 12.4Weight (kg): 120.100 Medications:Active Meds + DC'd Last 24 HrsCyanocobalamin (Vitamin B-12 500 mcg tab) 500 MCG DAILY PO Ferrous Sulfate (FERROUS SULFATE) 325 MG DAILY PO Bisacodyl (DULCOLAX) 10 MG ONCE PRN RECTAL Magnesium Hydroxide (MILK OF MAGNESIA) 30 ML ONCE PRN PO Furosemide (LASIX 40 mg/4 mL INJECTION) 0 .STK-MED ONE IV (DC) Furosemide (LASIX 40 mg/4 mL INJECTION) 40 MG ONCE ONE IV (DC) Clopidogrel Bisulfate (Plavix) 75 MG DAILY PO Polyethylene Glycol (MIRALAX) 17 GM DAILY PO Dopamine HCl/Dextrose (DOPamine 400MG/D5W 250ML) 250 ML ASDIR IV Pantoprazole (PROTONIX) 40 MG DAILY@0600 PO Furosemide (LASIX 20MG INJ) 10 MG ONCE ONE IV (DC) Vancomycin HCl (VANCOMYCIN HCL) 1,000 MG Q12H IV (DC) Sodium Chloride (SODIUM CHLORIDE 0.9%) 250 MLDocusate Sodium (COLACE) 100 MG BID PO Metoprolol Tartrate (LOPRESSOR) 12.5 MG Q12HR PO Sennosides (Senna Lax 8.6 MG TABLET) 17.2 MG BEDTIME PO Milrinone Lactate/Dextrose (MILRINONE 20MG/D5W 100ML) 100 ML ASDIR IV (CKD) Vasopressin (VASOSTRICT 20 Unit/NS 100ML) 100 ML ASDIR IV (CKD) Aspirin (ASPIRIN) 81 MG DAILY PO Gabapentin (NEURONTIN) 200 MG BID 9A 5P PO Fentanyl Citrate (SUBLIMAZE) 25 MCG ONCE ONE IV (DC) Amiodarone HCl (CORDARONE) 200 MG TID PO Furosemide (LASIX 20MG INJ) 10 MG ONCE ONE IV (DC) Tramadol HCl (ULTRAM) 25 MG Q4H PRN PRN PO Tramadol HCl (ULTRAM) 50 MG Q4H PRN PRN PO Mupirocin (BACTROBAN 2% 22 GM OINTMENT) 1 APPLIC BID NASAL Acetaminophen (TYLENOL) 650 MG Q4H PRN PRN PO Acetaminophen (TYLENOL) 650 MG Q4H PRN PRN RECTAL Albumin Human (ALBUMINAR 25%) 25 GM ASDIR PRN IV (DC) Calcium Chloride (CALCIUM CHLORIDE) 1 GM ASDIR PRN IV Chlorhexidine Gluconate (PERIDEX) 15 ML Q2H MM (CKD) Dextrose/Water (DEXTROSE 10% IN WATER) 125 ML ASDIR PRN IV (CKD) Dextrose/Water (DEXTROSE 10% IN WATER) 250 ML ASDIR PRN IV (CKD) Epinephrine (ADRENALIN CHLORIDE) 5 MG ASDIR IV Dextrose/Water (DEXTROSE 5% WATER) 245 MLGlucagon (GLUCAGON) 1 MG ASDIR PRN IM Insulin Human Regular (HumuLIN R) 100 UNIT ASDIR IV (CKD) Sodium Chloride (SODIUM CHLORIDE 0.9%) 99 MLMagnesium Sulfate (MAGNESIUM SULFATE 4GM/SWFI 100ML) 100 ML ASDIR PRN IV Magnesium Sulfate (MAGNESIUM SULFATE 2GM/SWFI 50ML) 50 ML ASDIR PRN IV Magnesium Sulfate/Dextrose (MAGNESIUM SULFATE 1GM/D5W 100ML) 100 ML ASDIR PRN IV Nitroglycerin/Dextrose (NITROGLYCERIN 50,000MCG/D5W 250ML) 250 ML ASDIR IV Norepinephrine Bitartrate (NOREPINEPHRINE 8 MG/NS 250 ML) 250 ML TITRATE IV Oxycodone HCl (ROXICODONE) 5 MG Q4H PRN PRN PO (DC) Oxycodone HCl (ROXICODONE) 10 MG Q4H PRN PRN PO (DC) Potassium Chloride (KCL 20MEQ/SWFI 100ML) 100 ML ASDIR PRN IV Sodium Bicarbonate (SODIUM BICARBONATE) 50 MEQ ASDIR PRN IV Sodium Chloride (SODIUM CHLORIDE 0.9%) 1,000 ML .Q20H IV Sodium Chloride (SODIUM CHLORIDE 0.9%) 250 ML Q24H IV Vancomycin HCl (VANCOMYCIN HCL) 1,750 MG PREOP ONCALL IV (DC) Sodium Chloride (SODIUM CHLORIDE 0.9%) 500 MLVerapamil HCl (ISOPTIN) 16.6 MG PREOP ONCALL IV (DC) Heparin Sodium (Porcine) (HEPARIN SODIUM) 1,660 UNIT Sodium Bicarbonate (SODIUM BICARBONATE) 0.7 ML Nitroglycerin/Dextrose (NITROGLYCERIN 50MG/D5W 250ML) 8.3 MG Lactated Ringer's (LACTATED RINGERS) 949.5 MLAtorvastatin Calcium (LIPITOR) 40 MG 2100 PO Ceftriaxone Sodium (ROCEPHIN 1000MG VIAL) 1,000 MG Q24H IV Sodium Chloride (SODIUM CHLORIDE) 10 MLAcetaminophen (TYLENOL EXTRA STRENGTH) 1,000 MG PREOP ONCALL PO (DC) Gabapentin (NEURONTIN) 200 MG PREOP ONCALL PO (DC) Ondansetron HCl (ZOFRAN) 4 MG Q6H PRN PRN IV Amlodipine Besylate (NORVASC) 5 MG DAILY PO Acetaminophen (TYLENOL EXTRA STRENGTH) 1,000 MG PREOP ONCALL PO (DC) Gabapentin (NEURONTIN) 200 MG PREOP ONCALL PO (DC) Pantoprazole (PROTONIX) 40 MG DAILY@0600 PO (DC) Vancomycin HCl (VANCOMYCIN HCL) 1,750 MG PREOP ONCALL IV (CKD) Sodium Chloride (NS 0.9%) 500 MLClonidine HCl (CATAPRES) 0.3 MG BID PO (DC) Doxazosin Mesylate (CARDURA) 4 MG BEDTIME PO (DC) Insulin Glargine (Lantus/Semglee) 50 UNIT BID SUBQ (DC) Insulin Human Lispro (HUMALOG) 0 AC HS SUBQ (DC) Dextrose/Water (DEXTROSE 10% IN WATER) 125 ML ASDIR PRN IV (DC) Dextrose/Water (DEXTROSE 10% IN WATER) 250 ML ASDIR PRN IV (DC) Glucagon (GLUCAGON) 1 MG ASDIR PRN IM (DC) Physical ExamGeneral appearance: alert, awakeHead/Eyes: atraumatic, normal conjunctiva/sclera, normal eyelids/periorb., normocephalicNeck: full range of motion, non-tender, no JVDCardiovascular: normal heart sounds, regular rate rhythmRespiratory: dyspneic, hypercapnia, hypoxia, on oxygen, clear to auscultationAbdomen: non-tender, normal bowel sounds, soft, no distentionExtremities: moves all, no calf tenderness, no edemaNeuro/[employer]: alertSkin: dry, intact ResultsFindings/Data:Laboratory Tests 12/20 12/20 12/19 12/19 0940 0315 7069 7659 Blood Gas Puncture Site Art Line Art Line Art Line Art Line O2 Saturation (90 - 100 %) 94.9 90.4 97.0 93.8 ABG pH (7.35 - 7.45) 7.239 *L 7.278 *L 7.301 L 7.284 *L ABG pCO2 (35.0 - 45 mmHg) 67.0 *H 66.1 *H 61.1 *H 68.4 *H ABG pO2 (80 - 100.0 mmHg) 90.6 70.0 L 103.3 H 82.3 ABG PO2/FiO2 Ratio (mm/Hg) 90.60 116.66 172.16 137.16 ABG HCO3 (22.0 - 26.0 MMOL/L) 28.6 *H 30.8 *H 30.1 *H 32.4 *H ABG Total CO2 30.7 32.8 32.0 34.4 ABG Base Excess (-4.0 - 4.0 MMOL/L) 1.2 4.1 H 3.7 5.7 H ABG Hematocrit (33.0 - 45.0 %) 22 L 21 L 22 L 23 L ABG Hemoglobin (11.0 - 15.0 G/DL) 7.6 L 7.2 L 7.5 L 7.9 L Martin Test N/A Sodium [...] Pressure Support (cmH2O) 15 12/19 1856 1650 1446Blood Gas Puncture Site Art Line Art Line Art Line Art Line O2 Saturation (90 - 100 %) 93.0 [...] %) 23 L 24 L 24 L 26 L ABG Hemoglobin (11.0 - 15.0 G/DL) 7.8 L 8.2 L 8.3 L 8.9 L Martin Test N/A N/A [...] 12/19 1307 1256 Blood Gas Puncture Site [place] Juanita Art Line O2 Saturation (90 - [...] 12/20 12/20 12/20 12/19 0940 0815 0319 031 2251Chemistry Sodium (134 - 147 mEq/L) 144 Potassium (3.4 - 5.0 mEq/L) 4.8 Chloride (100 - 108 mEq/L) 108 Carbon Dioxide (21 - 33 mEq/l) 28 Anion Gap (0 - 20) 12 BUN (7 - 18 mg/dL) 21 H Creatinine (0.6 - 1.3 mg/dL) 1.4 H POC Creatinine (0.6 - 1.0 mg/dL) 1.8 H 1.4 H 1.2 H Glomerular Filtr Rate (70 [...] L Total Alk Phosphatase (20 - 125 38IUnit/L) Total Protein (6.4 - 8.2 g/dL) 6.1 L Albumin (3.4 - 5.0 g/dL) 4.30 12/19 12/19 12/19 12/19 12/19 2245 2105 2006 185 1650Chemistry Sodium (134 - 147 mEq/L) 146 Potassium (3.4 - 5.0 mEq/L) 4.8 Chloride (100 - 108 mEq/L) 108 Carbon Dioxide (21 - 33 mEq/l) 29 Anion Gap (0 - 20) 14 BUN (7 - 18 mg/dL) 21 H Creatinine (0.6 - 1.3 mg/dL) 1.1 POC Creatinine (0.6 - 1.0 mg/dL) 1.2 H 1.1 H 0.9 0.9 Glomerular Filtr Rate (70 - 80) 48.0 L Glucose (70 - 110 mg/dL) 186 H POC Glucose (mg/dL) (70 - 110 MG/DL) 163 H 171 H 159 H 125 H Calcium (8.0 - 10.5 mg/dL) 9.1 Ionized Calcium Gigi (1.09 - 1.30 1.16MMOL/L) Phosphorus (2.5 - 4.9 MG/DL) 3.9 Magnesium (1.80 - 2.40 mg/dL) 2.45 H 12/19 12/19 12/19 12/19 12/19 1450 1446 1307 1257 1257Chemistry Sodium (134 - 147 mEq/L) 147 Potassium [...] L Total Alk Phosphatase (20 - 125 47IUnit/L) Total Protein (6.4 - 8.2 g/dL) 5.5 L Albumin (3.4 - 5.0 g/dL) 3.20 L 12/19 1256 Chemistry POC Creatinine (0.6 - 1.0 mg/dL) 0.9 POC Glucose (mg/dL) (70 - 110 MG/DL) 144 H Laboratory Tests 12/205 1257 Coagulation INR (0.8 - 1.2) 1.3 H 1.5 H PTT (Tk) (25.0 - 39.5 Seconds) 25.0 24.4 L PT Patient/Control Mix (9.3 - 12.9 SECONDS) 14.9 H 16.7 H Fibrinogen (160 - 450 MG/DL) 278 Laboratory Tests 12/20 2245 1257 Hematology WBC [...] - 77.0 %) 87.7 H 89.4 H 87.6 H Lymph % (Auto) (14.0 - 32.0 %) 3.5 L 2.5 L 3.1 L [place] % (Auto) (4.8 - 9.0 %) 8.1 7.6 8.3 Eos % (Auto) (0.3 - 3.7 %) 0.0 L 0.0 L 0.1 L Baso % (Auto) (0.0 - 2.0 %) 0.1 0.1 0.1 Neut # (Auto) (2.0 - 7.6 x10 3/uL) 6.25 5.95 6.83 Lymph # (Auto) (1.0 - 3.8 x10 3/uL) 0.25 L 0.17 L 0.24 L [place] # (Auto) (0.1 - 0.8 x10 3/uL) 0.58 0.51 0.65 Eos # (Auto) (0.0 - 0.2 x10 3/uL) 0.00 0.00 0.01 Baso # (Auto) (0.0 - 0.2 x10 3/uL) 0.01 0.01 0.01 Abs Immat Gran (auto) (0.00 - 0.03 x10 3/uL) 0.04 H 0.03 0.06 H Add Manual Diff NO NO NO Immature Gran % (0.0 - 2.0 %) 0.6 0.4 0.8 Nucleated RBC % (0 - 0 %) 0.0 0.0 0.0 Nucleated RBCs # (Man) (0.0 - 0.1 x10 3/uL) 0.00 0.00 0.00 Platelet Estimate (ADEQUATE THOUSAND) 76-95 Immature Plt Fraction (0.9 - 11.2 %) 8.3 6.5 Polychromasia 1+ Anisocytosis 1+ Macrocytosis 1+ Radiology data:Recent Impressions:RADIOLOGY - XR CHEST 1 V 12/19 1315 Report Impression - Status: SIGNED Entered: 12/19/2021 1516 IMPRESSION: 1. There are patchy opacities throughout the lungs, which could represent atelectasis. 2. Increased interstitial markings, which could represent pulmonary edema. Impression By: [email or web address] Herminia Leblanc M.D.RADIOLOGY - XR CHEST 1 V 12/19 1336 [...] conveyed to the Surgical team at 12:30 p.m.Impression By: [email or web address] - Jonathan Calles M.D.RADIOLOGY - XR CHEST 1 V 12/20 0656 Report Impression - Status: SIGNED Entered: 12/20/2021 0713 IMPRESSION: Stable radiographic appearance of the chest. Impression By: [email or web address] - Demian Berumen M.D. Treatment Prophylaxis Treatment ProphylaxisDrain(s)/tube(s): Drain(s)/tube(s): chest, urinary catheter Diagnosis, Assessment PlanConsultants: cardiology, cardiovascular surgery Free Text DxA P NotesFree text DxA P notes: 76 years old female with PMH of macular degeneration, obesity, obstructive sleepapnea (CPAP at home), former smoker, hypertension, hyperlipidemia, diabetes, Crohn's disease, chronic atrial fibrillation status post 3 ablations in the past(on Xarelto), pacemaker placement CAD -- multiple vesssels HTNDM HLDCrohn's diseasechronic atrial fibrillation status post 3 ablationsmacular degenerationobesityobstructive sleep apneaacute respiratory failure --post surgery severe mitral valve [...] MVR (31 Magna valve), CABG x 1 (ROBERTS-LAD), ILAA and pericardectomy -- she remain intubated on the vent -- chest tube are in place -on levophed and epinephrine drip -- monitor in CCU 12/20- she was extubated --on bipap now -- NPO --off Levophed/epinephrine, continue vasopressin, inotropes with milrinone, -- chest tube remain in place -- she is stable post surgery review all image and consultants notes Current Medications Sig/Frankie Start time Last Medication Dose Route Stop Time Status Admin Amlodipine Besylate 5 MG DAILY 12/18 0900 AC PO 01/17 0859 Furosemide 10 MG DAILY 12/18 899 AC PO 01/17 0859 Lisinopril 40 MG DAILY 12/18 899 AC PO 01/16 1214 Losartan Potassium 100 MG DAILY 12/18 899 AC PO 01/17 859 Metolazone 10 MG DAILY 12/18 899 AC PO 01/17 08 Pantoprazole 40 MG DAILY@0600 12/18 599 AC PO 01/17 0559 Cefazolin Sodium 3 GM PREOP ONCALL 12/18 050 CKD Sodium Chloride 250 ML IV 12/18 235 [...] IV 12/18 1158 Sodium Chloride 1,000 ML .[id number] 12/17 1200 AC 12/17 IV 12/17 1839 1404 Sodium Chloride 500 ML ASDIR PRN 12/17 1200 AC IV 12/18 1158 Adenosine 0 .STK-MED ONE 12/17 1052 DC IV Sodium Chloride 50 ML .STK-MED ONE 12/17 1052 DC IV Iopamidol 100 ML .STK-MED ONE 12/17 1034 DC 12/17 IV 12/17 1035 1034 Fentanyl Citrate 0 .STK-MED ONE 12/17 1019 DC 12/17 .ROUTE 1030 Midazolam HCl 0 .STK-MED ONE 12/17 1019 DC 12/17 .ROUTE 1030 Heparin Sodium/ 500 ML .STK-MED ONE 12/17 0949 DC 12/17 Sodium Chloride IV 1030 Heparin Sodium 0 .STK-MED ONE 12/17 0940 DC 12/17 .ROUTE 1030 Heparin Sodium/ 1,000 ML .STK-MED ONE 12/17 0840 DC 12/17 Sodium Chloride IV 1030 Heparin Sodium/ 500 ML .STK-MED ONE 12/18 939 DC 12/17 Sodium Chloride IV 1030 Lidocaine HCl 0 .STK-MED ONE 12/17 0940 DC 12/17 .ROUTE 1030 Nitroglycerin/ 250 ML .STK-MED ONE 12/18 939 DC 12/17 Dextrose IV 1030 Verapamil HCl 0 .STK-MED ONE 12/17 0940 DC 12/17 IV 1030 Home Medications:RIVAROXABAN (XARELTO) 20 MG PO DAILY amLODIPine (NORVASC) [...] DAILY INSULIN DETEMIR (LEVEMIR FlexTouch (15mL)) 50 UNITS SUBQ BID INSULIN LISPRO (HumaLOG CARTRIDGE (15mL)) 0 UNITS SUBQ TID LIRAGLUTIDE (VICTOZA (6mL)) 1.8 MG SUBQ DAILY metFORMIN (GLUCOPHAGE) 1,000 MG PO BID ADALIMUMAB + SUPPLIES (HUMIRA PREFILLED PEN) 40 MG SUBQ Q14D azaTHIOprine (IMURAN) 50 MG PO DAILY Quality: Gen Med Crit Care Current MedicationsCurrent medication review:Home Medications:RIVAROXABAN (XARELTO) 20 MG PO DAILY amLODIPine (NORVASC) [...] DAILY INSULIN DETEMIR (LEVEMIR FlexTouch (15mL)) 50 UNITS SUBQ BID INSULIN LISPRO (HumaLOG CARTRIDGE (15mL)) 0 UNITS SUBQ TID LIRAGLUTIDE (VICTOZA (6mL)) 1.8 MG SUBQ DAILY metFORMIN (GLUCOPHAGE) 1,000 MG PO BID ADALIMUMAB + SUPPLIES (HUMIRA PREFILLED PEN) 40 MG SUBQ Q14D azaTHIOprine (IMURAN) 50 MG PO DAILY I attest that the foregoing medication list in the medical record is true, accurate, and complete to the best of my knowledge. at 1803 RPT #:[id number] OF REPORTPRProgress [id number]:57:00G.[id number] oskar for patient [id number]:03:52 [facility] 2021-12-20 10:41:00 [id number] jMnJVyYECbSP +[id number]+uCWZDiRpPBs20018-17-90X43:41:[address] [facility] ([facility])Cardiothoracic Surgery ProgREPORT#:[id number] REPORT STATUS: SignedDATE:12/20/21 TIME: 1041 PATIENT: IKAH GILES UNIT #: [id number]#: [id number] [address] [birth year] AGE: 76 SEX: F ATTEND: Jeffry More MDADM AUTHOR: René Romero MD * ALL edits or amendments must be made on the electronic/computer document * GeneralPost-op: day 1Status post:1. Mitral valve replacement (31 Magna valve).2. Coronary artery bypass graft surgery x1 (ROBERTS to LAD).3. Isolation of left atrial appendage.4. Pericardiectomy. SubjectiveChief complaint:Shortness of breath Review of SystemsConstitutional:Denies: fever, malaise. Allergy/Immun:Denies: allergic reaction. ENT:Denies: sore throat. Respiratory:Denies: SOB. GI:Denies: abdominal pain, nausea, vomiting. Heme:Denies: bleeding. Neuro:Denies: focal weakness, headache. All systems rev neg: except as marked Objective GeneralVS/I OLast Documented: Result Date Time Pulse Ox 95 12/21 723 FiO2 65 12/21 723 Pulse 73 12/21 723 O2 Delivery BiPAP 12/21 723 B/P 100/35 12/20 641 B/P Mean 49 12/20 641 Temp 36.3 12/20 641 Resp 27 12/20 641 O2 Flow Rate 10 12/19 1944 24 hour I O ending at 0700: 12/20 0700 12/19 1900 Intake Total 1563.00 1802.00 Output Total 635 540 Balance 928.00 1262.00 Intake, IV 1443.00 1802.00 Intake, Oral 120 Output, Chest 290 225 Tube Drainage Output, Urine 345 315 PATIENT WEIGHT: Weight (lb): 264Weight (oz): 12.4Weight (kg): 120.100 Dietitian Nutrition assessmentThe data set between the solid lines has been imported from the dietitian's assessment. BMI Calculated: 45.4Nutrition related diagnosis: Nutrition diagnosis details: Nutrition problem: Nutrition etiology: Nutrition signs and symptoms: Nutrition prescription: Dietitian name: Assessment completed: Physical ExamGeneral appearance: alert, awake, orientedWound/incision: Location:sternal Site condition: dressing clean dry, dressing intactHEENT: anictericNeck: supple/no meningismusCardiovascular: normal heart sounds, regular rate rhythmRespiratory: aerating well, symmetric expansion, no distressAbdomen: soft, non-tender, no distentionExtremities: moves allNeuro/[employer]: alert, 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, normal speechSkin: dry, intact, normal temperaturePsychiatry: normal affect, normal mood Current MedicationsMedications:Active Meds + DC'd Last 24 HrsCyanocobalamin (Vitamin B-12 500 mcg tab) 500 MCG DAILY PO Ferrous Sulfate (FERROUS SULFATE) 325 MG DAILY PO Bisacodyl (DULCOLAX) 10 MG ONCE PRN RECTAL Magnesium Hydroxide (MILK OF MAGNESIA) 30 ML ONCE PRN PO Clopidogrel Bisulfate (Plavix) 75 MG DAILY PO Polyethylene Glycol (MIRALAX) 17 GM DAILY PO Dopamine HCl/Dextrose (DOPamine 400MG/D5W 250ML) 250 ML ASDIR IV Pantoprazole (PROTONIX) 40 MG DAILY@0600 PO Furosemide (LASIX 20MG INJ) 10 MG ONCE ONE IV (DC) Vancomycin HCl (VANCOMYCIN HCL) 1,000 MG Q12H IV Sodium Chloride (SODIUM CHLORIDE 0.9%) 250 MLDocusate Sodium (COLACE) 100 MG BID PO Metoprolol Tartrate (LOPRESSOR) 12.5 MG Q12HR PO Sennosides (Senna Lax 8.6 MG TABLET) 17.2 MG BEDTIME PO Milrinone Lactate/Dextrose (MILRINONE 20MG/D5W 100ML) 100 ML ASDIR IV (CKD) Vasopressin (VASOSTRICT 20 Unit/NS 100ML) 100 ML ASDIR IV (CKD) Aspirin (ASPIRIN) 81 MG DAILY PO Gabapentin (NEURONTIN) 200 MG BID 9A 5P PO Fentanyl Citrate (SUBLIMAZE) 25 MCG ONCE ONE IV (DC) Amiodarone HCl (CORDARONE) 200 MG TID PO Furosemide (LASIX 20MG INJ) 10 MG ONCE ONE IV (DC) Tramadol HCl (ULTRAM) 25 MG Q4H PRN PRN PO Tramadol HCl (ULTRAM) 50 MG Q4H PRN PRN PO Mupirocin (BACTROBAN 2% 22 GM OINTMENT) 1 APPLIC BID NASAL Acetaminophen (TYLENOL) 650 MG Q4H PRN PRN PO Acetaminophen (TYLENOL) 650 MG Q4H PRN PRN RECTAL Albumin Human (ALBUMINAR 25%) 25 GM ASDIR PRN IV Calcium Chloride (CALCIUM CHLORIDE) 1 GM ASDIR PRN IV Chlorhexidine Gluconate (PERIDEX) 15 ML Q2H MM (CKD) Dextrose/Water (DEXTROSE 10% IN WATER) 125 ML ASDIR PRN IV (CKD) Dextrose/Water (DEXTROSE 10% IN WATER) 250 ML ASDIR PRN IV (CKD) Epinephrine (ADRENALIN CHLORIDE) 5 MG ASDIR IV Dextrose/Water (DEXTROSE 5% WATER) 245 MLGlucagon (GLUCAGON) 1 MG ASDIR PRN IM Insulin Human Regular (HumuLIN R) 100 UNIT ASDIR IV (CKD) Sodium Chloride (SODIUM CHLORIDE 0.9%) 99 MLMagnesium Sulfate (MAGNESIUM SULFATE 4GM/SWFI 100ML) 100 ML ASDIR PRN IV Magnesium Sulfate (MAGNESIUM SULFATE 2GM/SWFI 50ML) 50 ML ASDIR PRN IV Magnesium Sulfate/Dextrose (MAGNESIUM SULFATE 1GM/D5W 100ML) 100 ML ASDIR PRN IV Nitroglycerin/Dextrose (NITROGLYCERIN 50,000MCG/D5W 250ML) 250 ML ASDIR IV Norepinephrine Bitartrate (NOREPINEPHRINE 8 MG/NS 250 ML) 250 ML TITRATE IV Oxycodone HCl (ROXICODONE) 5 MG Q4H PRN PRN PO (DC) Oxycodone HCl (ROXICODONE) 10 MG Q4H PRN PRN PO (DC) Potassium Chloride (KCL 20MEQ/SWFI 100ML) 100 ML ASDIR PRN IV Sodium Bicarbonate (SODIUM BICARBONATE) 50 MEQ ASDIR PRN IV Sodium Chloride (SODIUM CHLORIDE 0.9%) 1,000 ML .Q20H IV Sodium Chloride (SODIUM CHLORIDE 0.9%) 250 ML Q24H IV Vancomycin HCl (VANCOMYCIN HCL) 1,750 MG PREOP ONCALL IV (DC) Sodium Chloride (SODIUM CHLORIDE 0.9%) 500 MLVerapamil HCl (ISOPTIN) 16.6 MG PREOP ONCALL IV (DC) Heparin Sodium (Porcine) (HEPARIN SODIUM) 1,660 UNIT Sodium Bicarbonate (SODIUM BICARBONATE) 0.7 ML Nitroglycerin/Dextrose (NITROGLYCERIN 50MG/D5W 250ML) 8.3 MG Lactated Ringer's (LACTATED RINGERS) 949.5 MLAtorvastatin Calcium (LIPITOR) 40 MG 2100 PO Ceftriaxone Sodium (ROCEPHIN 1000MG VIAL) 1,000 MG Q24H IV Sodium Chloride (SODIUM CHLORIDE) 10 MLAcetaminophen (TYLENOL EXTRA STRENGTH) 1,000 MG PREOP ONCALL PO (DC) Gabapentin (NEURONTIN) 200 MG PREOP ONCALL PO (DC) Ondansetron HCl (ZOFRAN) 4 MG Q6H PRN PRN IV Amlodipine Besylate (NORVASC) 5 MG DAILY PO Acetaminophen (TYLENOL EXTRA STRENGTH) 1,000 MG PREOP ONCALL PO (DC) Gabapentin (NEURONTIN) 200 MG PREOP ONCALL PO (DC) Pantoprazole (PROTONIX) 40 MG DAILY@0600 PO (DC) Vancomycin HCl (VANCOMYCIN HCL) 1,750 MG PREOP ONCALL IV (CKD) Sodium Chloride (NS 0.9%) 500 MLClonidine HCl (CATAPRES) 0.3 MG BID PO (DC) Doxazosin Mesylate (CARDURA) 4 MG BEDTIME PO (DC) Insulin Glargine (Lantus/Semglee) 50 UNIT BID SUBQ (DC) Insulin Human Lispro (HUMALOG) 0 AC HS SUBQ (DC) Dextrose/Water (DEXTROSE 10% IN WATER) 125 ML ASDIR PRN IV (DC) Dextrose/Water (DEXTROSE 10% IN WATER) 250 ML ASDIR PRN IV (DC) Glucagon (GLUCAGON) 1 MG ASDIR PRN IM (DC) ResultsFindings/Data:Laboratory Tests 12/20 12/20 12/19 12/19 0940 7923 8341 7845 Blood Gas Puncture Site Art Line Art Line Art Line Art Line O2 Saturation (90 - 100 %) 94.9 90.4 97.0 93.8 ABG pH (7.35 - 7.45) 7.239 *L 7.278 *L 7.301 L 7.284 *L ABG pCO2 (35.0 - 45 mmHg) 67.0 *H 66.1 *H 61.1 *H 68.4 *H ABG pO2 (80 - 100.0 mmHg) 90.6 70.0 L 103.3 H 82.3 ABG PO2/FiO2 Ratio (mm/Hg) 90.60 116.66 172.16 137.16 ABG HCO3 (22.0 - 26.0 MMOL/L) 28.6 *H 30.8 *H 30.1 *H 32.4 *H ABG Total CO2 30.7 32.8 32.0 34.4 ABG Base Excess (-4.0 - 4.0 MMOL/L) 1.2 4.1 H 3.7 5.7 H ABG Hematocrit (33.0 - 45.0 %) 22 L 21 L 22 L 23 L ABG Hemoglobin (11.0 - 15.0 G/DL) 7.6 L 7.2 L 7.5 L 7.9 L Martin Test N/A Sodium [...] Pressure Support (cmH2O) 15 12/19 1856 1650 1446Blood Gas Puncture Site Art Line Art Line Art Line Art Line O2 Saturation (90 - 100 %) 93.0 [...] %) 23 L 24 L 24 L 26 L ABG Hemoglobin (11.0 - 15.0 G/DL) 7.8 L 8.2 L 8.3 L 8.9 L Martin Test N/A N/A [...] 12/19 12/19 12/19 12/19 1307 1256 1123 1049Blood Gas Puncture Site [place] Juanita Art Line O2 Saturation (90 - 100 %) 94.0 99.9 99.8 ABG pH (7.35 - 7.45) 7.383 7.472 H 7.467 H ABG pCO2 (35.0 - 45 mmHg) 51.0 *H 35.8 42.3 ABG pO2 (80 - 100.0 mmHg) 72.1 L 303.1 *H 226.6 *H ABG PO2/FiO2 Ratio (mm/Hg) 144.20 ABG HCO3 (22.0 - 26.0 MMOL/L) 30.4 *H 26.2 H 30.6 *H ABG Total CO2 32.0 27.2 31.9 ABG Base Excess (-4.0 - 4.0 MMOL/L) 5.3 H 2.5 6.2 H ABG Hematocrit (33.0 - 45.0 %) 26 L 27 L 26 L 25 L ABG Hemoglobin (11.0 - 15.0 G/DL) 8.9 L 9.2 L 9.0 L 8.5 L Martin Test N/A VBG [...] (1.12 - 1.32 1.30 1.29 1.33 H 1.18MMOL/L) Lactic Acid (0.9 - 1.7 mmol/l) 1.9 H 2.0 H 2.3 H 1.4 Temperature (F) 98 O2 Delivery Device Adult Vent Vent Mode AC Vent Rate (/MIN) 18 FiO2 (%) 60 50 Tidal Volume (ml) 450 500 PEEP (cmH2O) 5 5 Laboratory Tests 12/20 12/20 12/20 12/20 12/19 0940 0815 8195 7062 2574 Chemistry Sodium (134 - 147 mEq/L) 144 Potassium (3.4 - 5.0 mEq/L) 4.8 Chloride (100 - 108 mEq/L) 108 Carbon Dioxide (21 - 33 mEq/l) 28 Anion Gap (0 - 20) 12 BUN (7 - 18 mg/dL) 21 H Creatinine (0.6 - 1.3 mg/dL) 1.4 H POC Creatinine (0.6 - 1.0 mg/dL) 1.8 H 1.4 H 1.2 H Glomerular Filtr Rate (70 [...] 12/19 12/19 12/19 2245 2105 2006 1856 1650Chemistry Sodium (134 - 147 mEq/L) 146 Potassium (3.4 - 5.0 mEq/L) 4.8 Chloride (100 - 108 mEq/L) 108 Carbon Dioxide (21 - 33 mEq/l) 29 Anion Gap (0 - 20) 14 BUN (7 - 18 mg/dL) 21 H Creatinine (0.6 - 1.3 mg/dL) 1.1 POC Creatinine (0.6 - 1.0 mg/dL) 1.2 H 1.1 H 0.9 0.9 Glomerular Filtr Rate (70 - 80) [...] - 1.2) 1.3 H 1.5 H PTT (Tk) (25.0 - 39.5 Seconds) 25.0 24.4 L PT Patient/Control Mix (9.3 - 12.9 SECONDS) 14.9 H 16.7 H Activated Coag Time (74 - 137 SEC) 115 491 H Fibrinogen (160 - 450 MG/DL) 278 Laboratory Tests 12/20 2245 1257 Hematology WBC [...] - 77.0 %) 87.7 H 89.4 H 87.6 H Lymph % (Auto) (14.0 - 32.0 %) 3.5 L 2.5 L 3.1 L [place] % (Auto) (4.8 - 9.0 %) 8.1 7.6 8.3 Eos % (Auto) (0.3 - 3.7 %) 0.0 L 0.0 L 0.1 L Baso % (Auto) (0.0 - 2.0 %) 0.1 0.1 0.1 Neut # (Auto) (2.0 - 7.6 x10 3/uL) 6.25 5.95 6.83 Lymph # (Auto) (1.0 - 3.8 x10 3/uL) 0.25 L 0.17 L 0.24 L [place] # (Auto) (0.1 - 0.8 x10 3/uL) 0.58 0.51 0.65 Eos # (Auto) (0.0 - 0.2 x10 3/uL) 0.00 0.00 0.01 Baso # (Auto) (0.0 - 0.2 x10 3/uL) 0.01 0.01 0.01 Abs Immat Gran (auto) (0.00 - 0.03 x10 3/uL) 0.04 H 0.03 0.06 H Add Manual Diff NO NO NO Immature Gran % (0.0 - 2.0 %) 0.6 0.4 0.8 Nucleated RBC % (0 - 0 %) 0.0 0.0 0.0 Nucleated RBCs # (Man) (0.0 - 0.1 x10 3/uL) 0.00 0.00 0.00 Platelet Estimate (ADEQUATE THOUSAND) 76-95 Immature Plt Fraction (0.9 - 11.2 %) 8.3 6.5 Polychromasia 1+ Anisocytosis 1+ Macrocytosis 1+ Radiology data:Recent Impressions:RADIOLOGY - XR CHEST 1 V 12/19 1315 Report Impression - Status: SIGNED Entered: 12/19/2021 1516 IMPRESSION: 1. There are patchy opacities throughout the lungs, which could represent atelectasis. 2. Increased interstitial markings, which could represent pulmonary edema. Impression By: [email or web address] - Syeda Leblanc M.D.RADIOLOGY - XR CHEST 1 V 12/19 1336 [...] conveyed to the Surgical team at 12:30 p.m.Impression By: [email or web address] - Jonathan Calles M.D.RADIOLOGY - XR CHEST 1 V 12/20 0656 Report Impression - Status: SIGNED Entered: 12/20/2021 0713 IMPRESSION: Stable radiographic appearance of the chest. Impression By: [email or web address] - Demian Berumen M.D. Results: labs reviewed, vital signs stable, rythm personally rev'd, x-ray personally reviewed, current med profile rev'd Treatment Prophylaxis Treatment ProphylaxisOxygen: CPAP/BIPAPLines: arterial, CVC, peripheralCVC/PICC documentation:The data below has been imported from nursing documentation. Any exceptions have been noted below under Provider comments. CVC/PICC insertion date/time: CVC multi lumen triple Internal jugular Right Inserted 12/19/21 0722 PA catheter triple Internal jugular Right Inserted 12/19/21 1200 Provider comments on imported nursing data: [] Drain(s)/tube(s): Drain(s)/tube(s): chest, urinary catheter Quality: Trauma Gen Surg Current MedicationsCurrent medication review:Home Medications:RIVAROXABAN (XARELTO) 20 MG PO DAILY amLODIPine (NORVASC) [...] DAILY INSULIN DETEMIR (LEVEMIR FlexTouch (15mL)) 50 UNITS SUBQ BID INSULIN LISPRO (HumaLOG CARTRIDGE (15mL)) 0 UNITS SUBQ TID LIRAGLUTIDE (VICTOZA (6mL)) 1.8 MG SUBQ DAILY metFORMIN (GLUCOPHAGE) 1,000 MG PO BID ADALIMUMAB + SUPPLIES (HUMIRA PREFILLED PEN) 40 MG SUBQ Q14D azaTHIOprine (IMURAN) 50 MG PO DAILY I attest that the foregoing medication list in the medical record is true, accurate, and complete to the best of my knowledge. Diagnosis, Assessment PlanHospital course to date:This very pleasant 76-year-old female, from [facility], with past medical history of macular degeneration, obesity, obstructive sleep apnea (CPAP at home), former smoker, hypertension, hyperlipidemia, diabetes, Crohn's disease, chronic atrial fibrillation status post 3 ablations in the past (on Xarelto), pacemaker placement who had a recent admission to the hospital with heart failure symptoms. She has been admitted to the hospital today for elective heartcath. Coronary angiogram showed severe multivessel coronary artery disease suitable for percutaneous intervention. CV surgery called for evaluation. 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 She will benefit from off-pump ROBERTS to LAD and pericardiotomy. Dr. Romero explainedto the patient the surgery, risks involved, STS score, benefits, complications and alternatives. She acknowledged understanding and is willing to proceedPreop work-up has been initiatedWe will tentatively schedule patient for surgery tomorrow. 12/18 Preop assessment ongoingNo carotid stenosis on ultrasoundCT chest reviewed with Dr. Singhurgery rescheduled for tomorrowNPO after midnight Plan discussed with the patient 12/20 POD 1Patient hemodynamically stable, cardiac index 3.1Required Bipap after extubation yesterday and overnightTrend ABGs- wean bipap as toleratedDecrease milrinone drip to 0.125, and continue vasopressin at 0.02 Urine output marginal- dopamine drip started at 3Creatinine increased to 1.4, monitor strict I and O'sEncourage po intake, incentive spirometer useTry to get patient out of bed to chair today PT/OTMonitor patient closely in the CVICU Consultants: cardiology, cardiovascular surgery at 1736 RPT #:[id number] OF REPORTPRProgress rost7614-04-05B25:41:00G.[id number] e for patient vwumYHAPZXZIMKKCHJ4951-31-95K12:37:39 ACL 2021-12-20 08:44:00 [id number] 8TckRsLKaqVr IipXGJmWI+Ei5+sV/X0GOLW04418-95-38R64:44:[address] [facility] ([facility])Cardiology Progress NoteREPORT#:[id number] REPORT STATUS: SignedDATE:12/20/21 TIME: 843 PATIENT: KIAH GILES UNIT #: [id number]#: [id number] [address] [birth year] AGE: 76 SEX: F ATTEND: Alkarra,Jeffry Katiuska MDADM AUTHOR: Jayna Gonzales NP * ALL edits or amendments must be made on the electronic/computer document * SubjectiveChief complaint:Pt seen and examined.HPI:Ms Giles is a 76 y/o Femal w/ PMHx: CAD, HLD, T2DM, RONA (CPAP at home), smoker,Crohn's disease, AF s/p ablation (on Xarelto), s/p PPM and lymphedema; patient is from [place]. Dr. Ramos is consulted for CAD. Patient experienced intermittent nonradiated chest tightness. She reports sob x 1 year, was placed on diuretics; however her sob is not resolved. 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 CTS was consulted.Nursing reports:No: complaints. Comments:Pt is on Bipap 20/5, 100%.She is on dopamin 3mcg/kg/min for low u/o, Milrinone 0.125mg/kg/min, Vasopressin0.03units/min, and RHI 3 units/h. SBP 90's, PAP 60's.Telemetry shows 100% VPaced.CT x 3. Objective GeneralVS/I O:24 hour I O ending at 0700: 12/19 1900 12/20 07 Intake Total 1802.00 1563.00 Output Total 540 635 Balance 1262.00 928.00 Intake, IV 1802.00 1443.00 Intake, Oral 120 Output, Chest 225 290 Tube Drainage Output, Urine 315 345 Vital Signs: Date Time Temp Pulse Resp B/P B/P Pulse O2 O2 Flow FiO2 Mean Ox Delivery Rate 12/21 723 73 95 65 12/21 723 95 BiPAP 65 12/20 641 97.3 73 27 100/35 49 96 12/20 629 96/33 47 12/20 629 97.3 73 27 91/42 61 96 12/20 0515 101/35 50 12/20 614 97.3 73 25 96/45 65 94 12/20 599 104/36 51 12/20 599 97.3 73 27 97/46 66 93 12/20 0445 104/38 55 10/08 0545 97.3 75 26 98/53 73 94 10/08 0533 104/35 52 10/08 0533 97.5 76 26 92/43 62 94 10/08 0530 103/37 52 10/08 0530 97.5 76 26 98/42 60 94 10/08 0515 97.5 73 26 108/41 59 93 10/08 0500 117/42 58 10/08 0500 97.5 73 28 112/52 75 93 10/08 0445 115/42 59 10/08 0445 97.7 72 [...] 96 10/07 2331 105/36 52 10/07 2331 98.6 69 27 134/55 70 93 10/07 2330 98.6 73 27 93/35 48 87 10/07 2315 109/38 57 10/07 2315 98.6 76 27 110/51 74 95 10/07 2300 95/34 49 10/07 2300 98.8 72 34 102/47 68 96 10/07 2245 91/33 48 10/07 2245 98.8 72 27 98/46 67 96 10/07 2235 92 99 60 10/07 2230 95/34 48 10/07 2230 98.8 72 36 104/47 68 96 10/07 2215 102/38 54 10/07 2215 99.0 72 27 113/51 74 96 10/07 2200 117/44 62 10/07 2200 98.8 72 26 115/53 76 95 10/07 2145 117/46 64 10/07 2145 98.8 71 26 122/56 81 93 10/07 2142 124/49 69 10/07 2142 98.8 75 29 120/56 80 92 10/07 2130 99/35 50 10/07 2130 99.0 69 28 101/47 68 95 10/07 2114 93/36 51 10/07 2114 99.0 70 21 100/45 65 96 10/07 2100 94/39 55 10/07 2100 99.0 69 22 104/49 71 97 10/07 2044 92/39 54 10/07 2044 99.0 73 29 103/44 63 90 10/07 2029 101/41 58 10/07 2029 99.0 69 20 109/46 66 95 10/2014 94/36 52 10/07 2014 99.0 69 18 101/48 69 94 10/07 1999 BiPAP 60 10/07 1999 99/37 55 10/1999 98.8 72 97 BiPAP 60 10/1999 99.0 69 21 111/44 63 94 10/07 1945 98/34 51 10/07 1945 98.8 69 24 103/46 67 90 10/07 1944 90 High flow 10 nasal cannula 10/ 1930 98/35 55 10/07 1930 98.8 73 26 109/47 68 96 10/07 1915 100/34 53 10/07 1915 98.8 70 19 107/51 73 96 10/07 [...] 1503 97.9 75 24 96/46 62 92 10 1500 97.9 75 24 103/51 71 96 12/19 1448 97.9 73 24 102/53 72 97 12/19 1433 97.7 72 24 94/46 61 99 12/19 1418 97.7 77 24 100/54 70 96 12/19 1403 97.5 75 24 111/56 73 100 12/19 1400 97.5 69 25 108/55 76 100 12/19 1348 97.5 69 24 105/49 67 99 12/19 1300 50 12/19 1300 Ventilator 50 12/19 1259 80 93 60 12/19 1255 60 12/19 1249 93 Ventilator 50 12/19 1249 80 93 50 PATIENT WEIGHT: Weight (lb): 264Weight (oz): 12.4Weight (kg): 120.100 Medications:Active Meds + DC'd Last 24 HrsCyanocobalamin (Vitamin B-12 500 mcg tab) 500 MCG DAILY PO Ferrous Sulfate (FERROUS SULFATE) 325 MG DAILY PO Bisacodyl (DULCOLAX) 10 MG ONCE PRN RECTAL Magnesium Hydroxide (MILK OF MAGNESIA) 30 ML ONCE PRN PO Clopidogrel Bisulfate (Plavix) 75 MG DAILY PO Polyethylene Glycol (MIRALAX) 17 GM DAILY PO Dopamine HCl/Dextrose (DOPamine 400MG/D5W 250ML) 250 ML ASDIR IV Pantoprazole (PROTONIX) 40 MG DAILY@0600 PO Furosemide (LASIX 20MG INJ) 10 MG ONCE ONE IV (DC) Vancomycin HCl (VANCOMYCIN HCL) 1,000 MG Q12H IV Sodium Chloride (SODIUM CHLORIDE 0.9%) 250 MLDocusate Sodium (COLACE) 100 MG BID PO Metoprolol Tartrate (LOPRESSOR) 12.5 MG Q12HR PO Sennosides (Senna Lax 8.6 MG TABLET) 17.2 MG BEDTIME PO Milrinone Lactate/Dextrose (MILRINONE 20MG/D5W 100ML) 100 ML ASDIR IV (CKD) Vasopressin (VASOSTRICT 20 Unit/NS 100ML) 100 ML ASDIR IV (CKD) Aspirin (ASPIRIN) 81 MG DAILY PO Gabapentin (NEURONTIN) 200 MG BID 9A 5P PO Fentanyl Citrate (SUBLIMAZE) 25 MCG ONCE ONE IV (DC) Amiodarone HCl (CORDARONE) 200 MG TID PO Furosemide (LASIX 20MG INJ) 10 MG ONCE ONE IV (DC) Tramadol HCl (ULTRAM) 25 MG Q4H PRN PRN PO Tramadol HCl (ULTRAM) 50 MG Q4H PRN PRN PO Mupirocin (BACTROBAN 2% 22 GM OINTMENT) 1 APPLIC BID NASAL Acetaminophen (TYLENOL) 650 MG Q4H PRN PRN PO Acetaminophen (TYLENOL) 650 MG Q4H PRN PRN RECTAL Albumin Human (ALBUMINAR 25%) 25 GM ASDIR PRN IV Calcium Chloride (CALCIUM CHLORIDE) 1 GM ASDIR PRN IV Chlorhexidine Gluconate (PERIDEX) 15 ML Q2H MM (CKD) Dextrose/Water (DEXTROSE 10% IN WATER) 125 ML ASDIR PRN IV (CKD) Dextrose/Water (DEXTROSE 10% IN WATER) 250 ML ASDIR PRN IV (CKD) Epinephrine (ADRENALIN CHLORIDE) 5 MG ASDIR IV Dextrose/Water (DEXTROSE 5% WATER) 245 MLGlucagon (GLUCAGON) 1 MG [facility] PRN IM Insulin Human Regular (HumuLIN R) 100 UNIT [facility] IV (CKD) Sodium Chloride (SODIUM CHLORIDE 0.9%) 99 MLMagnesium Sulfate (MAGNESIUM SULFATE 4GM/SWFI 100ML) 100 ML [facility] PRN IV Magnesium Sulfate (MAGNESIUM SULFATE 2GM/SWFI 50ML) 50 ML [facility] PRN IV Magnesium Sulfate/Dextrose (MAGNESIUM SULFATE 1GM/D5W 100ML) 100 ML [facility] PRN IV Nitroglycerin/Dextrose (NITROGLYCERIN 50,000MCG/D5W 250ML) 250 ML [facility] IV Norepinephrine Bitartrate (NOREPINEPHRINE 8 MG/NS 250 ML) 250 ML TITRATE IV Oxycodone HCl (ROXICODONE) 5 MG Q4H PRN PRN PO (DC) Oxycodone HCl (ROXICODONE) 10 MG Q4H PRN PRN PO (DC) Potassium Chloride (KCL 20MEQ/SWFI 100ML) 100 ML [facility] PRN IV Sodium Bicarbonate (SODIUM BICARBONATE) 50 MEQ [facility] PRN IV Sodium Chloride (SODIUM CHLORIDE 0.9%) 1,000 ML .Q20H IV Sodium Chloride (SODIUM CHLORIDE 0.9%) 250 ML Q24H IV Protamine Sulfate (PROTAMINE SULFATE) 0 .STK-MED ONE IV (DC) Vancomycin HCl (VANCOMYCIN HCL) 1,750 MG PREOP ONCALL IV (DC) Sodium Chloride (SODIUM CHLORIDE 0.9%) 500 MLVerapamil HCl (ISOPTIN) 16.6 MG PREOP ONCALL IV (DC) Heparin Sodium (Porcine) (HEPARIN SODIUM) 1,660 UNIT Sodium Bicarbonate (SODIUM BICARBONATE) 0.7 ML Nitroglycerin/Dextrose (NITROGLYCERIN 50MG/D5W 250ML) 8.3 MG Lactated Ringer's (LACTATED RINGERS) 949.5 MLAtorvastatin Calcium (LIPITOR) 40 MG 2100 PO Ceftriaxone Sodium (ROCEPHIN 1000MG VIAL) 1,000 MG Q24H IV Sodium Chloride (SODIUM CHLORIDE) 10 MLAcetaminophen (TYLENOL EXTRA STRENGTH) 1,000 MG PREOP ONCALL PO (DC) Gabapentin (NEURONTIN) 200 MG PREOP ONCALL PO (DC) Ondansetron HCl (ZOFRAN) 4 MG Q6H PRN PRN IV Amlodipine Besylate (NORVASC) 5 MG DAILY PO Acetaminophen (TYLENOL EXTRA STRENGTH) 1,000 MG PREOP ONCALL PO (DC) Gabapentin (NEURONTIN) 200 MG PREOP ONCALL PO (DC) Pantoprazole (PROTONIX) 40 MG DAILY@0600 PO (DC) Vancomycin HCl (VANCOMYCIN HCL) 1,750 MG PREOP ONCALL IV (CKD) Sodium Chloride (NS 0.9%) 500 MLClonidine HCl (CATAPRES) 0.3 MG BID PO (DC) Doxazosin Mesylate (CARDURA) 4 MG BEDTIME PO (DC) Insulin Glargine (Lantus/Semglee) 50 UNIT BID SUBQ (DC) Insulin Human Lispro (HUMALOG) 0 AC HS SUBQ (DC) Dextrose/Water (DEXTROSE 10% IN WATER) 125 ML [facility] PRN IV (DC) Dextrose/Water (DEXTROSE 10% IN WATER) 250 ML [facility] PRN IV (DC) Glucagon (GLUCAGON) 1 MG [facility] PRN IM (DC) Status post:CABG, MVR, and ILAA Physical ExamGeneral appearance: lethargic, obeseENT: moist mucosal membranesNeck: no JVDCardiovascular: CV assessment: regular rate and rhythmRespiratory: On bipapAbdomen: obeseGenitourinary: no flank pain, no urinary catheterUpper extremity: UE assessment: normal temperature, no edemaLower extremity: LE assessment: edemaNeuro/[employer]: immediate post - opPsychiatry: unable to evaluate ResultsFindings/Data:Laboratory Tests 12/19 12/19 12/19 1256 1307 1446 Blood Gas Puncture Site Art Line [place] Juanita Art Line O2 Saturation (90 - [...] - 15.0 G/DL) 9.2 L 8.9 L 8.9 L Martin Test N/A N/A [...] 12/19 12/19 12/19 12/19 1650 1856 2006 2104 Blood Gas Puncture Site Art Line Art Line Art Line Art Line O2 Saturation (90 - 100 %) 97.0 [...] - 26.0 MMOL/L) 29.9 *H 30.6 *H 32.1 *H 32.4 *H ABG Total CO2 31.6 32.6 34.2 34.4 ABG Base Excess (-4.0 - 4.0 MMOL/L) 4.0 3.8 5.5 H 5.7 H ABG Hematocrit (33.0 - 45.0 %) 24 L 24 L 23 L 23 L ABG Hemoglobin (11.0 - 15.0 G/DL) 8.3 L 8.2 L 7.8 L 7.9 L Martin Test N/A Sodium [...] (cmH2O) 10 14 12/19 12/20 12/20 12/20 2256 0315 5303 1202 Blood Gas Puncture Site Art Line Art Line Art Line Art Line O2 Saturation (90 - 100 %) 97.0 90.4 94.9 98.8 ABG pH (7.35 - 7.45) 7.301 L 7.278 *L 7.239 *L 7.291 *L ABG pCO2 (35.0 - 45 mmHg) 61.1 *H 66.1 *H 67.0 *H 59.2 *H ABG pO2 (80 - 100.0 mmHg) 103.3 H 70.0 L 90.6 137.8 H ABG PO2/FiO2 Ratio (mm/Hg) 172.16 116.66 90.60 137.80 ABG HCO3 (22.0 - 26.0 MMOL/L) 30.1 *H 30.8 *H 28.6 *H 28.8 *H ABG Total CO2 32.0 32.8 30.7 30.7 ABG Base Excess (-4.0 - 4.0 MMOL/L) 3.7 4.1 H 1.2 2.1 ABG Hematocrit (33.0 - 45.0 %) 22 L 21 L 22 L 24 L ABG Hemoglobin (11.0 - 15.0 G/DL) 7.5 L 7.2 L 7.6 L 8.3 L Martin Test N/A Sodium [...] 12/19 12/19 12/19 1256 1257 1257 1307 1446Chemistry Sodium (134 - 147 mEq/L) 147 Potassium [...] L Total Alk Phosphatase (20 - 125 47IUnit/L) Total Protein (6.4 - 8.2 g/dL) 5.5 [...] mmol/l) 1.8 12/19 12/19 12/20 12/20 2245 6981 031 0313 Chemistry Sodium (134 - 147 mEq/L) 146 [...] 12/20 12/20 12/20 0815 0940 1006 1155 1203Chemistry Sodium (134 - 147 mEq/L) 144 Potassium [...] - 1.2) 1.5 H 1.3 H PTT (Tk) (25.0 - 39.5 Seconds) 24.4 L 25.0 PT Patient/Control Mix (9.3 - 12.9 SECONDS) 16.7 H 14.9 H Fibrinogen (160 - 450 MG/DL) 278 Laboratory Tests 12/19 12/19 12/20 4286 0771 8721 Hematology WBC (4.5 - 11.0 x10 3/uL) [...] - 77.0 %) 87.6 H 89.4 H 87.7 H Lymph % (Auto) (14.0 - 32.0 %) 3.1 L 2.5 L 3.5 L [place] % (Auto) (4.8 - 9.0 %) 8.3 7.6 8.1 Eos % (Auto) (0.3 - 3.7 %) 0.1 L 0.0 L 0.0 L Baso % (Auto) (0.0 - 2.0 %) 0.1 0.1 0.1 Neut # (Auto) (2.0 - 7.6 x10 3/uL) 6.83 5.95 6.25 Lymph # (Auto) (1.0 - 3.8 x10 3/uL) 0.24 L 0.17 L 0.25 L [place] # (Auto) (0.1 - 0.8 x10 3/uL) 0.65 0.51 0.58 Eos # (Auto) (0.0 - 0.2 x10 3/uL) 0.01 0.00 0.00 Baso # (Auto) (0.0 - 0.2 x10 3/uL) 0.01 0.01 0.01 Abs Immat Gran (auto) (0.00 - 0.03 x10 3/uL) 0.06 H 0.03 0.04 H Add Manual Diff NO NO NO Immature Gran % (0.0 - 2.0 %) 0.8 0.4 0.6 Nucleated RBC % (0 - 0 %) 0.0 0.0 0.0 Nucleated RBCs # (Man) (0.0 - 0.1 x10 3/uL) 0.00 0.00 0.00 Platelet Estimate (ADEQUATE THOUSAND) 76-95 Immature Plt Fraction (0.9 - 11.2 %) 6.5 8.3 Polychromasia 1+ Anisocytosis 1+ Macrocytosis 1+ Laboratory Tests 12/20 1155 Urines Urine Color (YEL/STRAW) YELLOW Urine Appearance (CLEAR) CLOUDY H Urine pH (5.0 - 7.0) 5.0 Ur Specific [place] (1.005 - 1.030) 1.030 Urine Protein (NEGATIVE) [...] - 2.40 mg/dL) 2.45 H 2.45 H 2.32 Radiology data:Recent Impressions:RADIOLOGY - XR CHEST 1 V 12/19 1315 Report Impression - Status: SIGNED Entered: 12/19/2021 2613 IMPRESSION: 1. There are patchy opacities throughout the lungs, which could represent atelectasis. 2. Increased interstitial markings, which could represent pulmonary edema. Impression By: [email or web address] - Syeda Leblanc M.D.RADIOLOGY - XR CHEST 1 V 12/19 1336 [...] conveyed to the Surgical team at 12:30 p.m.Impression By: [email or web address] - Jonathan Calles M.D.RADIOLOGY - XR CHEST 1 V 12/20 0656 Report Impression - Status: SIGNED Entered: 12/20/2021 0713 IMPRESSION: Stable radiographic appearance of the chest. Impression By: [email or web address] - Demian Berumen M.D. Results: labs reviewed, vital signs reviewed, vital signs stable, cath.personally reviewed, rhythm personally rev'd, current med profile rev'dTelemetry Interpretation:100%Vpaced Treatment Prophylaxis Treatment ProphylaxisDrain(s)/tube(s): Drain(s)/tube(s): chest (x3)Pressors and Inotropes: dopamine (3mcg/kg/min ), milrinone (0.125mcg/kg/miin), vasopressin (0.03units/min) Diagnosis, Assessment PlanConsultants: cardiology, cardiovascular surgeryPlan discussed with: patient, nurse Free Text DxA P NotesFree Text DxA P Notes:Ms Giles is a 76 y/o Femal w/ PMHx: CAD, HLD, T2DM, RONA (CPAP at home), smoker,Crohn's disease, AF s/p ablation (on Xarelto), s/p PPM and lymphedema; patient is from [place]. Dr. Ramos is consulted for CAD. Patient experienced intermittent nonradiated chest tightness. She reports sob x 1 year, was placed on diuretics; however her sob is not resolved. 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 CTS was consulted. - CAD s/p CABG, MVR, and ILAA immediate post-op care per CTS and critical care - Chr AF s/p PPM/ablation. Rate controlled, paced rhythm. had ILAA during bypass - HTN. BP marginal. monitor off BP meds On vasopressin.- HLD. On statins. - Crohn's disease. Per IM. at 1230 at 1729 RPT #:[id number] OF REPORTPRProgress [id number]:44:00G.[id number] e for patient [id number]:30:57 HC ACL 2021-12-20 08:37:00 [id number] CkTJgHRf3WUh cYi2tHK75nE0A+hQaOeVP0ic6025-23-54X35:37:[address] [facility] ([facility])Critical Care Progress NoteREPORT#:[id number] REPORT STATUS: SignedDATE:12/20/21 TIME: 0837 PATIENT: KIAH GILES UNIT #: [id number]#: [id number] [address] AGE: 76 SEX: F ATTEND: Jeffry More [facility] AUTHOR: Jd Alva MD * ALL edits or amendments must be made on the electronic/computer document * SubjectiveChief complaint:CABG/MVRHPI:76-year-old morbidly obese female with history of HTN, HL, IDDM, smoking, RONA onCPAP and home O2 as needed, macular degeneration, Crohn's disease on immunosuppressant medications, and chronic Afib s/p ablation and PPM (on Xarelto), who was admitted recently with heart failure symptoms. Patient underwent elective cardiac cath that showed severe multivessel coronary artery disease notsuitable for percutaneous intervention. 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 She went for surgical revascularization today and preop JORDEN revealed severe mitral regurgitation. After discussing new findings with family, patient underwent MVR (31 Magna valve), CABG x 1 (ROBERTS-LAD), ILAA and pericardectomy on 12/19/2021. Has EF of 45%. Crystalloid 1 L, urine output 700, Cell Saver 700. She is a-paced at baseline. Surgery went well and patient was transferred to CVICU postop in a stable surgical condition. She is currentlyintubated on 2 mics of epinephrine, 2 mics of Levophed and insulin drip. CI 3.0,SvO2 in 60%s, CVP 15 and PAP in 60s. Comments:Extubated yesterday postop Required BiPAP all night for hypoxia/hypercapniaOn vasopressin .02 and milrinone 0.25 miclow UOP 395 overnightmCT 130, LpCT 80, RpCT 95 (more sanguinous)PAPs in 57, SBP 104, CI 2.9, SvO2 63%, CVP 15On insulin drip Objective GeneralVS/I OLast Documented: Result Date Time Pulse Ox 96 12/20 641 B/P 100/35 12/20 641 B/P Mean 49 12/20 641 Temp 97.3 12/20 641 Pulse 73 12/20 641 Resp 27 12/20 641 FiO2 65 12/20 0416 O2 Delivery BiPAP 12/20 1999 O2 Flow Rate 10 12/19 1944 24 hour I O ending at 0700: 12/20 0700 12/19 1900 Intake Total 1563.00 1802.00 Output Total 635 540 Balance 928.00 1262.00 Intake, IV 1443.00 1802.00 Intake, Oral 120 Output, Chest 290 225 Tube Drainage Output, Urine 345 315 PATIENT WEIGHT: Weight (lb): 264Weight (oz): 12.4Weight (kg): 120.100 Medications:Active Meds + DC'd Last 24 HrsCyanocobalamin (Vitamin B-12 500 mcg tab) 500 MCG DAILY PO Ferrous Sulfate (FERROUS SULFATE) 325 MG DAILY PO Bisacodyl (DULCOLAX) 10 MG ONCE PRN RECTAL Magnesium Hydroxide (MILK OF MAGNESIA) 30 ML ONCE PRN PO Clopidogrel Bisulfate (Plavix) 75 MG DAILY PO Polyethylene Glycol (MIRALAX) 17 GM DAILY PO Dopamine HCl/Dextrose (DOPamine 400MG/D5W 250ML) 250 ML ASDIR IV Pantoprazole (PROTONIX) 40 MG DAILY@0600 PO Furosemide (LASIX 20MG INJ) 10 MG ONCE ONE IV (DC) Vancomycin HCl (VANCOMYCIN HCL) 1,000 MG Q12H IV Sodium Chloride (SODIUM CHLORIDE 0.9%) 250 MLDocusate Sodium (COLACE) 100 MG BID PO Metoprolol Tartrate (LOPRESSOR) 12.5 MG Q12HR PO Sennosides (Senna Lax 8.6 MG TABLET) 17.2 MG BEDTIME PO Milrinone Lactate/Dextrose (MILRINONE 20MG/D5W 100ML) 100 ML ASDIR IV (CKD) Vasopressin (VASOSTRICT 20 Unit/NS 100ML) 100 ML ASDIR IV (CKD) Aspirin (ASPIRIN) 81 MG DAILY PO Gabapentin (NEURONTIN) 200 MG BID 9A 5P PO Fentanyl Citrate (SUBLIMAZE) 25 MCG ONCE ONE IV (DC) Amiodarone HCl (CORDARONE) 200 MG TID PO Furosemide (LASIX 20MG INJ) 10 MG ONCE ONE IV (DC) Tramadol HCl (ULTRAM) 25 MG Q4H PRN PRN PO Tramadol HCl (ULTRAM) 50 MG Q4H PRN PRN PO Mupirocin (BACTROBAN 2% 22 GM OINTMENT) 1 APPLIC BID NASAL Acetaminophen (TYLENOL) 650 MG Q4H PRN PRN PO Acetaminophen (TYLENOL) 650 MG Q4H PRN PRN RECTAL Albumin Human (ALBUMINAR 25%) 25 GM ASDIR PRN IV Calcium Chloride (CALCIUM CHLORIDE) 1 GM ASDIR PRN IV Chlorhexidine Gluconate (PERIDEX) 15 ML Q2H MM (CKD) Dextrose/Water (DEXTROSE 10% IN WATER) 125 ML ASDIR PRN IV (CKD) Dextrose/Water (DEXTROSE 10% IN WATER) 250 ML ASDIR PRN IV (CKD) Epinephrine (ADRENALIN CHLORIDE) 5 MG ASDIR IV Dextrose/Water (DEXTROSE 5% WATER) 245 MLGlucagon (GLUCAGON) 1 MG ASDIR PRN IM Insulin Human Regular (HumuLIN R) 100 UNIT ASDIR IV (CKD) Sodium Chloride (SODIUM CHLORIDE 0.9%) 99 MLMagnesium Sulfate (MAGNESIUM SULFATE 4GM/SWFI 100ML) 100 ML ASDIR PRN IV Magnesium Sulfate (MAGNESIUM SULFATE 2GM/SWFI 50ML) 50 ML ASDIR PRN IV Magnesium Sulfate/Dextrose (MAGNESIUM SULFATE 1GM/D5W 100ML) 100 ML ASDIR PRN IV Nitroglycerin/Dextrose (NITROGLYCERIN 50,000MCG/D5W 250ML) 250 ML ASDIR IV Norepinephrine Bitartrate (NOREPINEPHRINE 8 MG/NS 250 ML) 250 ML TITRATE IV Oxycodone HCl (ROXICODONE) 5 MG Q4H PRN PRN PO (DC) Oxycodone HCl (ROXICODONE) 10 MG Q4H PRN PRN PO (DC) Potassium Chloride (KCL 20MEQ/SWFI 100ML) 100 ML ASDIR PRN IV Sodium Bicarbonate (SODIUM BICARBONATE) 50 MEQ ASDIR PRN IV Sodium Chloride (SODIUM CHLORIDE 0.9%) 1,000 ML .Q20H IV Sodium Chloride (SODIUM CHLORIDE 0.9%) 250 ML Q24H IV Protamine Sulfate (PROTAMINE SULFATE) 0 .STK-MED ONE IV (DC) Vancomycin HCl (VANCOMYCIN HCL) 1,750 MG PREOP ONCALL IV (DC) Sodium Chloride (SODIUM CHLORIDE 0.9%) 500 MLVerapamil HCl (ISOPTIN) 16.6 MG PREOP ONCALL IV (DC) Heparin Sodium (Porcine) (HEPARIN SODIUM) 1,660 UNIT Sodium Bicarbonate (SODIUM BICARBONATE) 0.7 ML Nitroglycerin/Dextrose (NITROGLYCERIN 50MG/D5W 250ML) 8.3 MG Lactated Ringer's (LACTATED RINGERS) 949.5 MLAtorvastatin Calcium (LIPITOR) 40 MG 2100 PO Ceftriaxone Sodium (ROCEPHIN 1000MG VIAL) 1,000 MG Q24H IV Sodium Chloride (SODIUM CHLORIDE) 10 MLAcetaminophen (TYLENOL EXTRA STRENGTH) 1,000 MG PREOP ONCALL PO (DC) Gabapentin (NEURONTIN) 200 MG PREOP ONCALL PO (DC) Ondansetron HCl (ZOFRAN) 4 MG Q6H PRN PRN IV Amlodipine Besylate (NORVASC) 5 MG DAILY PO Acetaminophen (TYLENOL EXTRA STRENGTH) 1,000 MG PREOP ONCALL PO (DC) Gabapentin (NEURONTIN) 200 MG PREOP ONCALL PO (DC) Pantoprazole (PROTONIX) 40 MG DAILY@0600 PO (DC) Vancomycin HCl (VANCOMYCIN HCL) 1,750 MG PREOP ONCALL IV (CKD) Sodium Chloride (NS 0.9%) 500 MLClonidine HCl (CATAPRES) 0.3 MG BID PO (DC) Doxazosin Mesylate (CARDURA) 4 MG BEDTIME PO (DC) Insulin Glargine (Lantus/Semglee) 50 UNIT BID SUBQ (DC) Insulin Human Lispro (HUMALOG) 0 AC HS SUBQ (DC) Dextrose/Water (DEXTROSE 10% IN WATER) 125 ML ASDIR PRN IV (DC) Dextrose/Water (DEXTROSE 10% IN WATER) 250 ML ASDIR PRN IV (DC) Glucagon (GLUCAGON) 1 MG ASDIR PRN IM (DC) ResultsFindings/data:Laboratory Tests 12/20 12/19 12/19 12/19 8738 8403 4062 2006 Blood Gas Puncture Site Art Line Art Line Art Line Art Line O2 Saturation (90 - 100 %) 90.4 97.0 93.8 93.0 ABG pH (7.35 - 7.45) 7.278 *L 7.301 L 7.284 *L 7.283 *L ABG pCO2 (35.0 - 45 mmHg) 66.1 *H 61.1 *H 68.4 *H 68.1 *H ABG pO2 (80 - 100.0 mmHg) 70.0 L 103.3 H 82.3 78.8 L ABG PO2/FiO2 Ratio (mm/Hg) 116.66 172.16 137.16 131.33 ABG HCO3 (22.0 - 26.0 MMOL/L) 30.8 *H 30.1 *H 32.4 *H 32.1 *H ABG Total CO2 32.8 32.0 34.4 34.2 ABG Base Excess (-4.0 - 4.0 MMOL/L) 4.1 H 3.7 5.7 H 5.5 H ABG Hematocrit (33.0 - 45.0 %) 21 L 22 L 23 L 23 L ABG Hemoglobin (11.0 - 15.0 G/DL) 7.2 L 7.5 L 7.9 L 7.8 L Sodium (134 - 147 MEQ/L) 142 143 143 142 Potassium (3.4 - 5.0 MEQ/L) 4.6 4.7 4.6 4.5 Chloride (100 - 108 MEQ/L) 108 108 108 109 H Ionized Calcium (1.12 - 1.32 MMOL/L) 1.33 H 1.29 1.33 H 1.31 Lactic Acid (0.9 - 1.7 mmol/l) 0.8 L 0.8 L 0.7 L 0.8 L Temperature (F) 98.9 98.8 99 99 O2 Delivery Device BiPAP BiPAP FiO2 (%) 60 60 60 60 PEEP (cmH2O) 5 5 5 578 12/19 12/19 12/19 12/19 1856 1650 1446 1307Blood Gas Puncture Site Art Line Art Line Art Line [place] Juanita O2 Saturation (90 - 100 %) 99.6 [...] - 15.0 G/DL) 8.2 L 8.3 L 8.9 L 8.9 L Martin Test N/A N/A [...] Calcium (1.12 - 1.32 1.29 1.23 1.27 1.30MMOL/L) Lactic Acid (0.9 - 1.7 mmol/l) 0.5 L 0.9 1.6 1.9 H Temperature (F) 98.6 97.7 O2 Delivery Device BiPAP Adult Vent Vent Mode CPAP/PS AC AC Vent Rate (/MIN) 24 FiO2 (%) 80 50 40 60 Tidal Volume (ml) 450 450 PEEP (cmH2O) 5 5 5 Pressure Support (cmH2O) 14 10 12/19 12/19 12/19 12/19 1256 1123 1049 1020Blood Gas Puncture Site Art Line O2 Saturation (90 - 100 %) 94.0 99.9 99.8 99.9 ABG pH (7.35 - 7.45) 7.383 7.472 H 7.467 H 7.550 *H ABG pCO2 (35.0 - 45 mmHg) 51.0 *H 35.8 42.3 35.2 ABG pO2 (80 - 100.0 mmHg) 72.1 L 303.1 *H 226.6 *H 278.5 *H ABG PO2/FiO2 Ratio (mm/Hg) 144.20 ABG HCO3 (22.0 - 26.0 MMOL/L) 30.4 *H 26.2 H 30.6 *H 30.8 *H ABG Total CO2 32.0 27.2 31.9 31.8 ABG Base Excess (-4.0 - 4.0 MMOL/L) 5.3 H 2.5 6.2 H 7.9 H ABG Hematocrit (33.0 - 45.0 %) 27 L 26 L 25 L 27 L ABG Hemoglobin (11.0 - 15.0 G/DL) 9.2 L 9.0 L 8.5 L 9.1 L Martin Test N/A Sodium [...] (ml) 500 PEEP (cmH2O) 5 12/19 12/19 0945 0920 Blood Gas O2 Saturation (90 - 100 [...] 12/19 12/19 12/19 0319 0315 2251 2245 2105Chemistry Sodium (134 - 147 mEq/L) 144 146 Potassium (3.4 - 5.0 mEq/L) 4.8 4.8 Chloride (100 - 108 mEq/L) 108 108 Carbon Dioxide (21 - 33 mEq/l) 28 29 Anion Gap (0 - 20) 12 14 BUN (7 - 18 mg/dL) 21 H 21 H Creatinine (0.6 - 1.3 mg/dL) 1.4 H 1.1 POC Creatinine (0.6 - 1.0 mg/dL) 1.4 H 1.2 H 1.2 H Glomerular Filtr Rate (70 [...] (0.6 - 1.0 mg/dL) 0.9 0.9 1.0 0.9 POC Glucose (mg/dL) (70 - 110 MG/DL) 180 H 197 H 193 H 208 H Laboratory Tests 12/20 1257 1125 1051 1027Coagulation INR (0.8 - 1.2) 1.3 H 1.5 H PTT (Tk) (25.0 - 39.5 Seconds) 25.0 24.4 L PT Patient/Control Mix (9.3 - 12.9 14.9 H 16.7 HSECONDS) Activated Coag Time (74 - 137 SEC) 115 491 H 515 H Fibrinogen (160 - 450 MG/DL) 278 [...] - 77.0 %) 87.7 H 89.4 H 87.6 H Lymph % (Auto) (14.0 - 32.0 %) 3.5 L 2.5 L 3.1 L [place] % (Auto) (4.8 - 9.0 %) 8.1 7.6 8.3 Eos % (Auto) (0.3 - 3.7 %) 0.0 L 0.0 L 0.1 L Baso % (Auto) (0.0 - 2.0 %) 0.1 0.1 0.1 Neut # (Auto) (2.0 - 7.6 x10 3/uL) 6.25 5.95 6.83 Lymph # (Auto) (1.0 - 3.8 x10 3/uL) 0.25 L 0.17 L 0.24 L [place] # (Auto) (0.1 - 0.8 x10 3/uL) 0.58 0.51 0.65 Eos # (Auto) (0.0 - 0.2 x10 3/uL) 0.00 0.00 0.01 Baso # (Auto) (0.0 - 0.2 x10 3/uL) 0.01 0.01 0.01 Abs Immat Gran (auto) (0.00 - 0.03 x10 3/uL) 0.04 H 0.03 0.06 H Add Manual Diff NO NO NO Immature Gran % (0.0 - 2.0 %) 0.6 0.4 0.8 Nucleated RBC % (0 - 0 %) 0.0 0.0 0.0 Nucleated RBCs # (Man) (0.0 - 0.1 x10 3/uL) 0.00 0.00 0.00 Platelet Estimate (ADEQUATE THOUSAND) 76-95 Immature Plt Fraction (0.9 - 11.2 %) 8.3 6.5 Polychromasia 1+ Anisocytosis 1+ Macrocytosis 1+ Laboratory Tests 12/20/21 0315:[Embedded Image Not Available] 12/19/21 2245:[Embedded Image Not Available] 12/19/21 1257:[Embedded Image Not Available]Microbiology:12/18 183 URINE: Urine Culture - RES12/18 1436 NASAL: MRSA DNA Surveillance Screen - CAN Cancelled: Cancelled via OE: Order Cancelled by MD12/18 2003 NASAL: MSSA Surveillance Screen - COMP12/18 2003 NASAL: MRSA DNA Surveillance Screen - COMP Radiology dataRecent Impressions:RADIOLOGY - XR CHEST 1 V 12/19 1315 Report Impression - Status: SIGNED Entered: 12/19/2021 1516 IMPRESSION: 1. There are patchy opacities throughout the lungs, which could represent atelectasis. 2. Increased interstitial markings, which could represent pulmonary edema. Impression By: [email or web address] - Syeda Leblanc M.D.RADIOLOGY - XR CHEST 1 V 12/19 1336 [...] conveyed to the Surgical team at 12:30 p.m.Impression By: [email or web address] - Jonathan Calles M.D.RADIOLOGY - XR CHEST 1 V 12/20 0656 Report Impression - Status: SIGNED Entered: 12/20/2021 0713 IMPRESSION: Stable radiographic appearance of the chest. Impression By: [email or web address] - Demina Berumen M.D. Free Text Obj NotesFree Text Obj Notes:General appearance: elderly female in no acute distressHEENT: atraumatic, normocephalic, moist mucosal membranesNeck: full range of motion, supple/no meningismusCardiovascular: S1S2 regular rate and rhythm, a-pacedRespiratory: symmetric expansion, no acute respiratory distressAbdomen: soft, obese, non-tender, no distention, no guardingGenitourinary: [place] with clear urineExtremities: pedal pulses palpable, moves all, no clubbing, no cyanosis, LE edemaMusculoskeletal: normal inspection, no muscle spasmNeuro/[employer]: Alert and oriented, CNII-XII grossly intact, no motor deficitsSkin: dry, intact and clean surgery dressing Diagnosis, Assessment PlanProblem list/A P: 1. S/P MVR (mitral valve replacement) 2. S/P CABG x 1 3. Postoperative pulmonary dysfunction after cardiac surgery 4. Severe mitral regurgitation 5. CAD (coronary artery disease) 6. CKD (chronic kidney disease) 7. Immunosuppressed status 8. RONA on CPAP 9. Chronic a-fib 10. Crohn disease Free text A P:76-year-old morbidly obese female with history of HTN, HL, IDDM, smoking, RONA onCPAP and home O2 as needed, macular degeneration, Crohn's disease on immunosuppressant medications, and chronic Afib s/p ablation and PPM (on Xarelto), who was admitted recently with heart failure symptoms. Patient underwent elective cardiac cath that showed severe multivessel coronary artery disease notsuitable for percutaneous intervention. 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 She went for surgical revascularization today and preop JORDEN revealed severe mitral regurgitation. After discussing new findings with family, patient underwent MVR (31 Magna valve), CABG x 1 (ROBERTS-LAD), ILAA and pericardectomy on 12/19/2021. Has EF of 45%. Crystalloid 1 L, urine output 700, Cell Saver 700. She is a-paced at baseline. Surgery went well and patient was transferred to CVICU postop in a stable surgical condition. She is currentlyintubated on 2 mics of epinephrine, 2 mics of Levophed and insulin drip. CI 3.0,SvO2 in 60%s, CVP 15 and PAP in 60s. Neuro: appears intact, keep off sedation, multimodal pain control, minimize narcotics useRespiratory: sats well on minimal vent settings, CPAP trial as tolerated, plan for extubation, may need bipap, obtain serial ABGs, CXR reviewedCardiovascular: Hemodynamically unstable on vasopressors, attempt to wean, monitor PAP and hemodynamic parameters, keep CTs to suctionRenal: strict I/Os, monitor Cr and electrolytes, mild lactic acidosis, trend LA,resuscitate as needed, home diuretics on holdGI: bedside swallow then oral diet after extubation, keep NPO if required bipap,bowel regimenID: trend WBC, continue periop antibiotics, low threshold for infection work-up,treated for UTIHem: acute postop anemia and thrombocytopenia, monitor Hgb and CTs output, no evidence of active bleed, transfuse as needed, holding off on immunosuppressive medsEndo: Blood glucose control with insulin gtt per protocolMisc: PTOT consult, DVT and GI ppx with DAPT and PPI (home med) ppears neuro intact, multimodal pain control, monitor for CO2 narcosis, avoid narcoticsExtubated successfully, required BiPAP for hypoxia and hypercapnia, attempt to wean, obtain serial ABGs, CXR reviewed, has pulmonary edemaImproved hemodynamics, off Levophed/epinephrine, continue vasopressin, inotropeswith milrinone, monitor hemodynamic parameters and wean per CT surgeryMild MARCELLO, Cr uptrending with marginal urine output, started dopamine dripKeep NPO for now while on BiPAP, bowel regimen, monitor LFTsNo fevers or leukocytosis, given periop antibiotics, on antibiotics for UTIHemoglobin and platelets trending down, no evidence of active bleed, monitor CTsoutputBlood glucose control with insulin dripPT/OT and out of bed to chair if toleratedDVT and GI prophylaxis with DAPT and PPI Patient was seen during rounds with CT surgery team, Dr. Romero, and he is in agreement with the plan of care Consultants: cardiology, cardiovascular surgeryPlan discussed with: consultants, nurse, interdisc care team, pharmacy/pharmacistCritical care time: Minutes: 41 at 0621 [facility] #:[id number] OF REPORTPRProgress tbgx2380-27-24Z53:37:00G.[id number] e for patient uogeCWOWQQIFGOFKQR4851-44-65M84:21:44 [facility] 2021-12-20 05:04:00 [id number]/6aoQ1H7vtF2wX F1SOmNL2XFWE F2cr8g+[id number]:04:[id number] [address] PATIENT NAME: KIAH GILES ADMIT DATE: 12/17/21ACCOUNT NO: [id number] ROOM NO: [facility] AGE: 76 REPORT TYPE: eELECTROCARDIOGRAM REPORT SEX: F ADMITTING PHYSICIAN:Jeffry More MD ATTENDING PHYSICIAN:Jeffry More MD Order:[id number] Reason : S/P CAB/MVR Test Date/Time Stamp:[facility] Dec 20 2021 05:04:33Blood Pressure : / mmHGVent. Rate : 073 BPM Atrial Rate : 082 BPM P-R Int : 000 ms QRS Dur : 178 ms QT Int : 472 ms P-R-T Axes : 000 127 -07 degrees QTc Int : 519 ms Suspect unspecified pacemaker failureVentricular-paced rhythmAbnormal ECGWhen compared with ECG of 12-DEC-2021 12:29,Significant changes have occurredConfirmed by MD CARINE, SANDY ([id number]) on 12/22/2021 9:38:00 PM Referred By: Colt Vail Confirmed by:SANDY HAWK MD at 2138 PATIENT NAME: KIAH GILES .[id number] vailable for patient [id number]:38:25 [facility] 2021-12-19 15:14:00 [id number] [id number]/FUjDpPhyL [id number] [place], [place] [address] PATIENT NAME: KIAH GILES ADMIT DATE: 12/17/21ACCOUNT NO: [id number] ROOM NO: G.2201 AGE: 76 REPORT TYPE: OPERATIVE REPORT SEX: F ADMITTING PHYSICIAN:Jeffry More MD ATTENDING PHYSICIAN:Jeffry More MD OPERATION DATE: PREOPERATIVE DIAGNOSES:1. Constrictive pericarditis.2. Coronary artery disease. POSTOPERATIVE DIAGNOSES:1. Constrictive pericarditis.2. Coronary artery disease.3. Severe mitral regurgitation. OPERATIONS:1. Mitral valve replacement (31 Magna valve).2. Coronary artery bypass graft surgery x1 (ROBERTS to LAD).3. Isolation of left atrial appendage.4. Pericardiectomy. SURGEON: René Romero MD MANAGER WEB APPLICATION: Dione Ross ANESTHESIOLOGIST: Dr. Avalos. ANESTHESIA: General endotracheal anesthesia. ESTIMATED BLOOD LOSS: 100 mL. INDICATIONS: Ms. Giles is a 76-year-old female, who has been experiencing worsening shortness of breath. Workup revealed constrictive pericarditis. Coronary angiogram showed single vessel coronary artery disease. Echo showed moderate mitral regurgitation. After due preop counseling, she was brought to the operating room today for coronary artery bypass graft surgery and pericardiectomy. FINDINGS:1. Preoperative JORDEN showed severe mitral regurgitation. I discussed with the patient's family the need for mitral valve replacement. The patient's family agreed to proceed with the mitral valve replacement and hence that procedure wasperformed after explaining to the family the pros and cons of tissue versus mechanical valve and complications associated with mitral valve replacement.2. Osteoporotic sternum.3. Good quality ROBERTS measuring 2 mm in size with excellent flow.4. Thickened pericardium with intrapericardial adhesions. All the adhesions PATIENT NAME: KIAH GILES were taken down and the pericardium was excised from phrenic to phrenic.4. Dilated left atrium with patchy calcification of the left atrium.5. The anterior leaflet appeared normal, but there was significant restriction of the posterior mitral leaflet, leading to severe mitral regurgitation.6. The annulus was sized to 31 Magna Ease valve.7. JORDEN at the end of case did not show any evidence of paravalvular leak. DESCRIPTION OF PROCEDURE: Ms. Giles was identified in the preoperative holding area and brought to the operating room and placed supine on the operating table. After induction of general endotracheal anesthesia, [place] catheter, radial arterial line, [place]uanita catheter and antibiotics were placed. The patient's anterior torso and both lower extremities were prepped and draped in standard surgical fashion. Median sternotomy was performed. The left internal mammary artery was harvested. Pericardium was opened longitudinally. All the intrapericardial adhesions were taken down. The pericardium was excised from phrenic to phrenic. Cardiopulmonary bypass was instituted using ascending aorta and bicaval cannulation with 24-metal tip cannula in the SVC and 32-bull nose cannula in the IVC. The patient was cooled to 32 degrees centigrade. Surgical field was flooded with carbon dioxide all throughout the duration of cardiopulmonary bypass. Cross clamp was applied and the heart was arrested with1.5 liters of antegrade and retrograde cold blood cardioplegia. Cardioplegia was repeated at the interval of 10 minutes, all throughout duration of the crossclamp. We began by exploring the LAD. This was a good quality artery, measuring 2 mm in size. Arteriotomy was performed with a [place] blade and extended with Nickerson scissors. The ROBERTS was anastomosed in end-to-side manner using running 8-0 Prolene suture. The ROBERTS pedicle was tacked to epicardium using two interrupted 6-0 Prolene suture. Next, attention was shifted to the mitral valve. A standard left atriotomy was performed posterior to the Sondergaard's groove. Genesis retractor was used with good exposure of the mitral valve. Next, the anterior mitral leaflet was transected and plicated to the annulus. Annulus was then sized to a 31 Magna Ease valve. Next, circumferential 3 Ethibond sutures were placed in the mitral annulus. Size 31 Magna Ease valve having been prepared at the back table was brought on to the surgical field. The sutures were then sequentially passed through the sewing ring. The valve was lowered down to the annulus. After confirming proper seating, the sutures were tied. Rewarming was commenced at this stage. The leftatriotomy was closed in a single layer using running 4-0 Prolene suture. Careful deaeration was performed and the crossclamp was released. One active ventricular wire was placed. A 28-[place] Island[place] chest tube was placed in the mediastinum and 28-angle chest tube placed in the left pleural space. Once the patient's was at temperature, de-airing maneuvers were repeated and the patient was weaned off cardiopulmonary bypass with minimal inotropic support. Heparin was reversed with protamine. Decannulation was uneventful. After confirming hemostasis, the chest was closed in layers using stainless steel wires for the sternum, #1 Vicryl for the fascia, 2-0 Vicryl for the subcutaneous tissue and 4-0 Vicryl for the skin. The patient was transferred to the intensive care unit,intubated in stable condition. Dictated By: René Romero MD Date Dictated: 12/19/2021 15:14:49Date Transcribed: 12/19/2021 19:44:12RAN/Ketan #: [id number] PATIENT NAME: KIAH GILES Receipt ID: [id number] by Vadim Romero MD On 12/20/2021 11:36:00 AM at 1136 PATIENT NAME: KIAH GILES [id number]:44:00G.[id number] for patient errgKJXIIUNOJWJTRW8428-82-97U26:36:27 [facility] 2021-12-19 15:00:00 [id number] xMzMgflZmpi8 xceZseN+OiWnJDILsZqFqA423119-79-30P24:00:[address] [facility] ([facility])Brief Op NoteREPORT#:[id number] REPORT STATUS: SignedDATE:12/19/21 TIME: 1500 PATIENT: KIAH GILES UNIT #: [id number]#: [id number] ROOM/BED: [facility]-1DOB: [birth year] AGE: 76 SEX: F ATTEND: Jeffry More AUTHOR: René Romero MD * ALL edits or amendments must be made on the electronic/computer document * Op/Inv Proc Note - BriefPre-procedure diagnosis:Constrictive pericarditis, CADPost-procedure diagnosis: Constrictive pericarditis, CAD, severe MRProcedures performed:MVR (31 Magna valve)CABG x 1 (ROBERTS-LAD)ILAAPericardectomyPrimary Surgeon:DionnaAssistant(s): Dione Alvarez:severe MR due to restrictive posterior leafletComplications: noneEstimated blood loss in ml's: 100 ccSpecimens removed/altered: none at 1503 RPT #:[id number] OF REPORTOPOperative hhbgds8220-83-70N21:00:00G.[id number] ble for patient uhsaOZESAHZWIRFZOY7962-26-70E11:04:13 [facility] 2021-12-19 13:49:00 [id number]/F9YvEh uwhV0YQ3DmRt kw5dkmvRnY7/ba51wAiX1llb6646-36-63V15:49:00 [facility] CenterCard[facility] Progress NoteREPORT#:[id number] REPORT STATUS: SignedDATE:12/19/21 TIME: 1349 PATIENT: KIAH GILES UNIT #: [id number]#: [id number] [address] AGE: 76 SEX: F ATTEND: Jeffry More MDADM AUTHOR: Isabella Clemens * ALL edits or amendments must be made on the electronic/computer document * SubjectiveHPI:Ms Giles is a 76 y/o Femal w/ PMHx: CAD, HLD, T2DM, RONA (CPAP at home), smoker,Crohn's disease, AF s/p ablation (on Xarelto), s/p PPM and lymphedema; patient is from [place]. Dr. Ramos is consulted for CAD. Patient experienced intermittent nonradiated chest tightness. She reports sob x 1 year, was placed on diuretics; however her sob is not resolved. 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 CTS was consulted. Objective GeneralVS/I O:24 hour I O ending at 0700: 12/19 0700 12/18 1900 Intake Total 75 350 Output Total 600 Balance 75 -250 Intake, Oral 75 350 Number Voids 1 Output, Urine 600 Patient 120.1 kg Weight Weight Standing scale Measurement Method Vital Signs: Date Time Temp Pulse Resp B/P B/P Pulse O2 O2 Flow FiO2 Mean Ox Delivery Rate 12/19 416 36.6 70 20 135/73 93.5 94 Nasal cannula 12/19 2311 36.7 70 18 137/81 99.5 95 Nasal cannula 12/19 2031 95 Nasal 4 cannula 12/18 1929 Nasal 4 cannula 12/18 1922 36.6 73 18 142/78 99.5 92 Nasal cannula 12/18 1557 36.6 71 12 139/71 93.5 100 Nasal 4 cannula PATIENT WEIGHT: Weight (lb): 264Weight (oz): 12.4Weight (kg): 120.100 Medications:Active Meds + DC'd Last 24 HrsCyanocobalamin (Vitamin B-12 500 mcg tab) 500 MCG DAILY PO Ferrous Sulfate (FERROUS SULFATE) 325 MG DAILY PO Bisacodyl (DULCOLAX) 10 MG ONCE PRN RECTAL Magnesium Hydroxide (MILK OF MAGNESIA) 30 ML ONCE PRN PO Clopidogrel Bisulfate (Plavix) 75 MG DAILY PO Polyethylene Glycol (MIRALAX) 17 GM DAILY PO Pantoprazole (PROTONIX) 40 MG DAILY@0600 PO Vancomycin HCl (VANCOMYCIN HCL) 1,000 MG Q12H IV Sodium Chloride (SODIUM CHLORIDE 0.9%) 250 MLDocusate Sodium (COLACE) 100 MG BID PO Metoprolol Tartrate (LOPRESSOR) 12.5 MG Q12HR PO Sennosides (Senna Lax 8.6 MG TABLET) 17.2 MG BEDTIME PO Aspirin (ASPIRIN) 81 MG DAILY PO Gabapentin (NEURONTIN) 200 MG BID 9A 5P PO Amiodarone HCl (CORDARONE) 200 MG TID PO Furosemide (LASIX 20MG INJ) 10 MG ONCE ONE IV (UNV) Tramadol HCl (ULTRAM) 25 MG Q4H PRN PRN PO Tramadol HCl (ULTRAM) 50 MG Q4H PRN PRN PO Mupirocin (BACTROBAN 2% 22 GM OINTMENT) 1 APPLIC BID NASAL Acetaminophen (TYLENOL) 650 MG Q4H PRN PRN PO Acetaminophen (TYLENOL) 650 MG Q4H PRN PRN RECTAL Albumin Human (ALBUMINAR 25%) 25 GM ASDIR PRN IV Calcium Chloride (CALCIUM CHLORIDE) 1 GM ASDIR PRN IV Chlorhexidine Gluconate (PERIDEX) 15 ML Q2H MM (CKD) Dextrose/Water (DEXTROSE 10% IN WATER) 125 ML ASDIR PRN IV (CKD) Dextrose/Water (DEXTROSE 10% IN WATER) 250 ML ASDIR PRN IV (CKD) Epinephrine (ADRENALIN CHLORIDE) 5 MG ASDIR IV Dextrose/Water (DEXTROSE 5% WATER) 245 MLGlucagon (GLUCAGON) 1 MG ASDIR PRN IM Insulin Human Regular (HumuLIN R) 100 UNIT ASDIR IV (CKD) Sodium Chloride (SODIUM CHLORIDE 0.9%) 99 MLMagnesium Sulfate (MAGNESIUM SULFATE 4GM/SWFI 100ML) 100 ML ASDIR PRN IV Magnesium Sulfate (MAGNESIUM SULFATE 2GM/SWFI 50ML) 50 ML ASDIR PRN IV Magnesium Sulfate/Dextrose (MAGNESIUM SULFATE 1GM/D5W 100ML) 100 ML ASDIR PRN IV Nitroglycerin/Dextrose (NITROGLYCERIN 50,000MCG/D5W 250ML) 250 ML ASDIR IV Norepinephrine Bitartrate (NOREPINEPHRINE 8 MG/NS 250 ML) 250 ML TITRATE IV Oxycodone HCl (ROXICODONE) 5 MG Q4H PRN PRN PO (DC) Oxycodone HCl (ROXICODONE) 10 MG Q4H PRN PRN PO (DC) Potassium Chloride (KCL 20MEQ/SWFI 100ML) 100 ML ASDIR PRN IV Sodium Bicarbonate (SODIUM BICARBONATE) 50 MEQ ASDIR PRN IV Sodium Chloride (SODIUM CHLORIDE 0.9%) 1,000 ML .Q20H IV Sodium Chloride (SODIUM CHLORIDE 0.9%) 250 ML Q24H IV Protamine Sulfate (PROTAMINE SULFATE) 0 .STK-MED ONE IV (DC) Heparin Sodium (HEPARIN SODIUM) 0 .STK-MED ONE .ROUTE (DC) Papaverine HCl (PAPAVERINE HCL) 0 .STK-MED ONE IV (DC) Calcium Chloride (CALCIUM CHLORIDE) 0 .STK-MED ONE IV (DC) Epinephrine/Dextrose (Epinephrine 5MG/D5W 250ML) 250 ML .STK-MED ONE IV (DC) Insulin Human Regular (HumuLIN R 100 UNITS/NS 100ML) 100 ML .STK-MED ONE IV (DC) Nitroglycerin/Dextrose (NITROGLYCERIN 50,000MCG/D5W 250ML) 250 ML .STK-MED ONE IV (DC) Norepinephrine Bitartrate (NOREPINEPHRINE 8 MG/NS 250 ML) 250 ML .STK-MED ONE IV (DC) Magnesium Sulfate (MAGNESIUM SULFATE) 0 .STK-MED ONE .ROUTE (DC) Ropivacaine (NAROPIN 0.5% 150 MG/30mL) 0 .STK-MED ONE .ROUTE (DC) Aminocaproic Acid (AMICAR) 0 .STK-MED ONE IV (DC) Heparin Sodium (HEPARIN SODIUM) 0 .STK-MED ONE .ROUTE (DC) Propofol (DIPRIVAN 200MG/20ML INJECTION) 0 .STK-MED ONE IV (DC) Dexamethasone Sodium Phosphate (DECADRON) 0 .STK-MED ONE .ROUTE (DC) Fentanyl Citrate (SUBLIMAZE) 0 .STK-MED ONE IV (DC) Lidocaine HCl (XYLOCAINE) 0 .STK-MED ONE .ROUTE (DC) Midazolam HCl (VERSED) 0 .STK-MED ONE .ROUTE (DC) Ondansetron HCl (ZOFRAN) 0 .STK-MED ONE .ROUTE (DC) Rocuronium [place] (ZEMURON) 0 .STK-MED ONE IV (DC) Albumin Human (ALBUMINAR-25%) 100 ML .STK-MED ONE IV (DC) Heparin Sodium (HEPARIN SODIUM) 0 .STK-MED ONE .ROUTE (DC) Lidocaine HCl (XYLOCAINE IV) 0 .STK-MED ONE IV (DC) Mannitol (MANNITOL 25% 12.5GM/50ML) 0 .STK-MED ONE IV (DC) Sodium Bicarbonate (SODIUM BICARBONATE) 0 .STK-MED ONE IV (DC) Sodium Chloride (SODIUM CHLORIDE 0.9%) 100 ML .STK-MED ONE IV (DC) Magnesium Sulfate (MAGNESIUM SULFATE) 0 .STK-MED ONE IV (DC) Phenylephrine HCl (TAMI-SYNEPHRINE 10MG/ML AMP) 0 .STK-MED ONE .ROUTE (DC) Cefazolin Sodium (KEFZOL OR ANCEF) 0 .STK-MED ONE .ROUTE (DC) Metoprolol Tartrate (LOPRESSOR) 6.25 MG PREOP ONCE ONE PO (DC) Vancomycin HCl (VANCOMYCIN HCL) 1,750 MG PREOP ONCALL IV (CKD) Sodium Chloride (SODIUM CHLORIDE 0.9%) 500 MLVerapamil HCl (ISOPTIN) 16.6 MG PREOP ONCALL IV (CKD) Heparin Sodium (Porcine) (HEPARIN SODIUM) 1,660 UNIT Sodium Bicarbonate (SODIUM BICARBONATE) 0.7 ML Nitroglycerin/Dextrose (NITROGLYCERIN 50MG/D5W 250ML) 8.3 MG Lactated Ringer's (LACTATED RINGERS) 949.5 MLAtorvastatin Calcium (LIPITOR) 40 MG 2100 PO Ceftriaxone Sodium (ROCEPHIN 1000MG VIAL) 1,000 MG Q24H IV Sodium Chloride (SODIUM CHLORIDE) 10 MLAcetaminophen (TYLENOL EXTRA STRENGTH) 1,000 MG PREOP ONCALL PO (CKD) Gabapentin (NEURONTIN) 200 MG PREOP ONCALL PO (DC) Ondansetron HCl (ZOFRAN) 4 MG Q6H PRN PRN IV Amlodipine Besylate (NORVASC) 5 MG DAILY PO Acetaminophen (TYLENOL EXTRA STRENGTH) 1,000 MG PREOP ONCALL PO (CKD) Gabapentin (NEURONTIN) 200 MG PREOP ONCALL PO (DC) Pantoprazole (PROTONIX) 40 MG DAILY@0600 PO Cefazolin Sodium (KEFZOL OR ANCEF) 3 GM PREOP ONCALL IV (DC) Sodium Chloride (SODIUM CHLORIDE 0.9%) 250 MLVancomycin HCl (VANCOMYCIN HCL) 1,750 MG PREOP ONCALL IV (CKD) Sodium Chloride (NS 0.9%) 500 MLVerapamil HCl (ISOPTIN) 16.6 MG .Q24H ONE IV (DC) Heparin Sodium (Porcine) (HEPARIN SODIUM) 1,660 UNIT Sodium Bicarbonate (SODIUM BICARBONATE) 0.7 ML Nitroglycerin/Dextrose (NITROGLYCERIN 50MG/D5W 250ML) 8.3 MG Lactated Ringer's (LACTATED RINGERS) 949.5 MLClonidine HCl (CATAPRES) 0.3 MG BID PO (DC) Doxazosin Mesylate (CARDURA) 4 MG BEDTIME PO (DC) Insulin Glargine (Lantus/Semglee) 50 UNIT BID SUBQ (DC) Insulin Human Lispro (HUMALOG) 0 AC HS SUBQ (DC) Dextrose/Water (DEXTROSE 10% IN WATER) 125 ML ASDIR PRN IV (CKD) Dextrose/Water (DEXTROSE 10% IN WATER) 250 ML ASDIR PRN IV (CKD) Glucagon (GLUCAGON) 1 MG ASDIR PRN IM Status post:CABG, MVR, and ILAAPacemaker: permanent Physical ExamGeneral appearance: respiratory supportCardiovascular: CV assessment: regular rate and rhythmRespiratory: on ventAbdomen: obeseGenitourinary: no flank pain, no urinary catheterUpper extremity: UE assessment: normal temperature, no edemaLower extremity: LE assessment: edemaNeuro/[employer]: immediate post - opPsychiatry: unable to evaluate ResultsFindings/Data:Laboratory Tests 12/19 12/19 12/19 12/19 1307 1256 1123 1049Blood Gas Puncture Site [place] Juanita Art Line O2 Saturation (90 - 100 %) 94.0 99.9 99.8 ABG pH (7.35 - 7.45) 7.383 7.472 H 7.467 H ABG pCO2 (35.0 - 45 mmHg) 51.0 *H 35.8 42.3 ABG pO2 (80 - 100.0 mmHg) 72.1 L 303.1 *H 226.6 *H ABG PO2/FiO2 Ratio (mm/Hg) 144.20 ABG HCO3 (22.0 - 26.0 MMOL/L) 30.4 *H 26.2 H 30.6 *H ABG Total CO2 32.0 27.2 31.9 ABG Base Excess (-4.0 - 4.0 MMOL/L) 5.3 H 2.5 6.2 H ABG Hematocrit (33.0 - 45.0 %) 26 L 27 L 26 L 25 L ABG Hemoglobin (11.0 - 15.0 G/DL) 8.9 L 9.2 L 9.0 L 8.5 L Martin Test N/A VBG [...] (1.12 - 1.32 1.30 1.29 1.33 H 1.18MMOL/L) Lactic Acid (0.9 - 1.7 mmol/l) 1.9 H 2.0 H 2.3 H 1.4 Temperature (F) 98 O2 Delivery Device Adult Vent Vent Mode AC Vent Rate (/MIN) 18 FiO2 (%) 60 50 Tidal Volume (ml) 450 500 PEEP (cmH2O) 5 5 12/19 12/19 12/19 12/19 1020 0945 0915 0839 Blood Gas O2 Saturation (90 - 100 %) 99.9 100.0 100.0 99.9 ABG pH (7.35 - 7.45) 7.550 *H 7.532 *H 7.473 H 7.421 ABG pCO2 (35.0 - 45 mmHg) 35.2 36.8 41.7 42.1 ABG pO2 (80 - 100.0 mmHg) 278.5 *H 427.8 *H 447.6 *H 349.7 *H ABG HCO3 (22.0 - 26.0 MMOL/L) 30.8 *H 30.8 *H 30.6 *H 27.4 H ABG Total CO2 31.8 32.0 31.9 28.7 ABG Base Excess (-4.0 - 4.0 MMOL/L) 7.9 H 7.7 H 6.4 H 2.6 ABG Hematocrit (33.0 - 45.0 %) 27 L 27 L 27 L 30 L ABG Hemoglobin (11.0 - 15.0 G/DL) 9.1 L 9.2 L 9.2 L 10.3 L Sodium (134 - 147 [...] 12/19 12/19 12/19 1307 1257 1257 1256 1123Chemistry Sodium (134 - 147 mEq/L) 147 Potassium [...] L Total Alk Phosphatase (20 - 125 47IUnit/L) Total Protein (6.4 - 8.2 g/dL) 5.5 L Albumin (3.4 - 5.0 g/dL) 3.20 L 12/19 12/19 12/19 12/19 12/19 1049 1020 0945 0915 0839 Chemistry POC Creatinine (0.6 - 1.0 mg/dL) 0.9 0.9 1.0 0.9 0.9 POC Glucose (mg/dL) (70 - [...] PT Patient/Control Mix (9.3 - 12.9 SECONDS) 16.7 H Activated Coag Time (74 - 137 SEC) 115 491 H 515 H 12/19 12/19 12/19 12/19 0947 0918 0840 0737 Coagulation Activated Coag Time (74 - 137 SEC) 642 H 746 H 740 H 138 H 12/19 12/19 0440 0440 Coagulation INR (0.8 - 1.2) 1.2 PTT (Nash) (25.0 - 39.5 Seconds) 31.1 PT Patient/Control Mix (9.3 - 12.9 SECONDS) 13.5 H Laboratory Tests 12/19 12/19 1257 0440 [...] - 32.0 %) 3.1 L 5.7 L [place] % (Auto) (4.8 - 9.0 %) 8.3 10.4 H Eos % (Auto) (0.3 - 3.7 %) 0.1 L 0.8 Baso % (Auto) (0.0 - 2.0 %) 0.1 0.2 Neut # (Auto) (2.0 - 7.6 x10 3/uL) 6.83 4.06 Lymph # (Auto) (1.0 - 3.8 x10 3/uL) 0.24 L 0.28 L [place] # (Auto) (0.1 - 0.8 x10 3/uL) 0.65 0.51 Eos # (Auto) (0.0 - 0.2 x10 3/uL) 0.01 0.04 Baso # (Auto) (0.0 - 0.2 x10 3/uL) 0.01 0.01 Abs Immat Gran (auto) (0.00 - 0.03 x10 3/uL) 0.06 H 0.02 Add Manual Diff NO NO Immature Gran % (0.0 - 2.0 %) 0.8 0.4 Nucleated RBC % (0 - 0 %) 0.0 0.0 Nucleated RBCs # (Man) (0.0 - 0.1 x10 3/uL) 0.00 0.00 Platelet Estimate (ADEQUATE THOUSAND) 76-95 Polychromasia 1+ Anisocytosis 1+ Macrocytosis 1+ Laboratory Tests 12/19 1257 Chemistry Magnesium (1.80 - 2.40 mg/dL) 2.45 H Results: labs reviewedTelemetry Interpretation:paced Diagnosis, Assessment PlanPlan discussed with: nurse Free Text DxA P NotesFree Text DxA P Notes:Ms Giles is a 76 y/o Femal w/ PMHx: CAD, HLD, T2DM, RONA (CPAP at home), smoker,Crohn's disease, AF s/p ablation (on Xarelto), s/p PPM and lymphedema; patient is from [place]. Dr. Ramos is consulted for CAD. Patient experienced intermittent nonradiated chest tightness. She reports sob x 1 year, was placed on diuretics; however her sob is not resolved. 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 CTS was consulted. - CAD s/p CABG, MVR, and ILAA immediate post-op care per CTS and critical care - Chr AF s/p PPM/ablation. Rate controlled, paced rhythm. had ILAA during bypass - HTN. BP controlled. monitor off BP meds - HLD. On statins. - Crohn's disease. Per IM. at 1357 at 0804 RPT #:[id number] OF REPORTPRProgress vbxu1673-57-62T62:49:00G.[id number] e for patient lraiLLBYFIVIWWEREB1030-28-35Y58:57:53 HC ACL 2021-12-19 13:05:00 [id number] lIZ11qK1OFst tN0d/Ek5E8wBCGtHphjSZxBS2045-51-77S16:05:00 [facility])Critical Care Consult NoteREPORT#:[id number] REPORT STATUS: SignedDATE:12/19/21 TIME: 1305 PATIENT: KAIH GILES UNIT #: [id number]#: [id number] [address] [birth year] AGE: 76 SEX: F ATTEND: Jeffry More [facility] AUTHOR: Jd Alva MD * ALL edits or amendments must be made on the electronic/computer document * History of Present Illness HPIRequesting clinician: Dr. Pinto for consult:postop managementChief complaint:CABG/MVRPCP:PCP: Dong Fuchs MD HPI:76-year-old morbidly obese female with history of HTN, HL, IDDM, smoking, RONA onCPAP and home O2 as needed, macular degeneration, Crohn's disease on immunosuppressant medications, and chronic Afib s/p ablation and PPM (on Xarelto), who was admitted recently with heart failure symptoms. Patient underwent elective cardiac cath that showed severe multivessel coronary artery disease notsuitable for percutaneous intervention. 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 She went for surgical revascularization today and preop JORDEN revealed severe mitral regurgitation. After discussing new findings with family, patient underwent MVR (31 Magna valve), CABG x 1 (ROBERTS-LAD), ILAA and pericardectomy on 12/19/2021. Has EF of 45%. Crystalloid 1 L, urine output 700, Cell Saver 700. She is a-paced at baseline. Surgery went well and patient was transferred to CVICU postop in a stable surgical condition. She is currentlyintubated on 2 mics of epinephrine, 2 mics of Levophed and insulin drip. CI 3.0,SvO2 in 60%s, CVP 15 and PAP in 60s. History - Adult longitudinalPast medical history:Reports: Atrial fibrillation, Diabetes mellitus, Hypertension, Dyslipidemia. Additional medical history:Clot degeneration Obstructive sleep apnea Chron's diseasePast surgical history:Reports: Pacemaker (SJ). Alcohol use: Denies EtOH useDrug use: Denies recreational drugsSmoking status for patients 13 years old or older: Never SmokerAllergies:Coded Allergies:ciprofloxacin (From CIPRO) (Severe, JOINT PAIN 12/12/21)morphine (Severe, RASH, SWELLING 12/12/21) Review of Systems ROSUnable to obtain due to:vented Objective Physical ExamVS/I O:Last Documented: Result Date Time Pulse Ox 99 12/19 2234 FiO2 60 12/19 2234 Pulse 92 12/19 2234 O2 Delivery High flow nasal cannula 12/20 1943 O2 Flow Rate 10 12/19 194 B/P 104/51 12/19 1844 B/P Mean 74 [...] and BMI Weight (kg): 120.100 BMI: 45.4 Medications:Active Meds + DC'd Last 24 HrsCyanocobalamin (Vitamin B-12 500 mcg tab) 500 MCG DAILY PO Ferrous Sulfate (FERROUS SULFATE) 325 MG DAILY PO Bisacodyl (DULCOLAX) 10 MG ONCE PRN RECTAL Magnesium Hydroxide (MILK OF MAGNESIA) 30 ML ONCE PRN PO Clopidogrel Bisulfate (Plavix) 75 MG DAILY PO Polyethylene Glycol (MIRALAX) 17 GM DAILY PO Pantoprazole (PROTONIX) 40 MG DAILY@0600 PO Vancomycin HCl (VANCOMYCIN HCL) 1,000 MG Q12H IV Sodium Chloride (SODIUM CHLORIDE 0.9%) 250 MLDocusate Sodium (COLACE) 100 MG BID PO Metoprolol Tartrate (LOPRESSOR) 12.5 MG Q12HR PO Sennosides (Senna Lax 8.6 MG TABLET) 17.2 MG BEDTIME PO Milrinone Lactate/Dextrose (MILRINONE 20MG/D5W 100ML) 100 ML ASDIR IV (CKD) Vasopressin (VASOSTRICT 20 Unit/NS 100ML) 100 ML ASDIR IV (CKD) Aspirin (ASPIRIN) 81 MG DAILY PO Gabapentin (NEURONTIN) 200 MG BID 9A 5P PO Fentanyl Citrate (SUBLIMAZE) 25 MCG ONCE ONE IV (DC) Amiodarone HCl (CORDARONE) 200 MG TID PO Furosemide (LASIX 20MG INJ) 10 MG ONCE ONE IV (DC) Tramadol HCl (ULTRAM) 25 MG Q4H PRN PRN PO Tramadol HCl (ULTRAM) 50 MG Q4H PRN PRN PO Mupirocin (BACTROBAN 2% 22 GM OINTMENT) 1 APPLIC BID NASAL Acetaminophen (TYLENOL) 650 MG Q4H PRN PRN PO Acetaminophen (TYLENOL) 650 MG Q4H PRN PRN RECTAL Albumin Human (ALBUMINAR 25%) 25 GM ASDIR PRN IV Calcium Chloride (CALCIUM CHLORIDE) 1 GM ASDIR PRN IV Chlorhexidine Gluconate (PERIDEX) 15 ML Q2H MM (CKD) Dextrose/Water (DEXTROSE 10% IN WATER) 125 ML ASDIR PRN IV (CKD) Dextrose/Water (DEXTROSE 10% IN WATER) 250 ML ASDIR PRN IV (CKD) Epinephrine (ADRENALIN CHLORIDE) 5 MG ASDIR IV Dextrose/Water (DEXTROSE 5% WATER) 245 MLGlucagon (GLUCAGON) 1 MG ASDIR PRN IM Insulin Human Regular (HumuLIN R) 100 UNIT ASDIR IV (CKD) Sodium Chloride (SODIUM CHLORIDE 0.9%) 99 MLMagnesium Sulfate (MAGNESIUM SULFATE 4GM/SWFI 100ML) 100 ML ASDIR PRN IV Magnesium Sulfate (MAGNESIUM SULFATE 2GM/SWFI 50ML) 50 ML ASDIR PRN IV Magnesium Sulfate/Dextrose (MAGNESIUM SULFATE 1GM/D5W 100ML) 100 ML ASDIR PRN IV Nitroglycerin/Dextrose (NITROGLYCERIN 50,000MCG/D5W 250ML) 250 ML ASDIR IV Norepinephrine Bitartrate (NOREPINEPHRINE 8 MG/NS 250 ML) 250 ML TITRATE IV Oxycodone HCl (ROXICODONE) 5 MG Q4H PRN PRN PO (DC) Oxycodone HCl (ROXICODONE) 10 MG Q4H PRN PRN PO (DC) Potassium Chloride (KCL 20MEQ/SWFI 100ML) 100 ML ASDIR PRN IV Sodium Bicarbonate (SODIUM BICARBONATE) 50 MEQ ASDIR PRN IV Sodium Chloride (SODIUM CHLORIDE 0.9%) 1,000 ML .Q20H IV Sodium Chloride (SODIUM CHLORIDE 0.9%) 250 ML Q24H IV Protamine Sulfate (PROTAMINE SULFATE) 0 .STK-MED ONE IV (DC) Heparin Sodium (HEPARIN SODIUM) 0 .STK-MED ONE .ROUTE (DC) Papaverine HCl (PAPAVERINE HCL) 0 .STK-MED ONE IV (DC) Calcium Chloride (CALCIUM CHLORIDE) 0 .STK-MED ONE IV (DC) Epinephrine/Dextrose (Epinephrine 5MG/D5W 250ML) 250 ML .STK-MED ONE IV (DC) Insulin Human Regular (HumuLIN R 100 UNITS/NS 100ML) 100 ML .STK-MED ONE IV (DC) Nitroglycerin/Dextrose (NITROGLYCERIN 50,000MCG/D5W 250ML) 250 ML .STK-MED ONE IV (DC) Norepinephrine Bitartrate (NOREPINEPHRINE 8 MG/NS 250 ML) 250 ML .STK-MED ONE IV (DC) Magnesium Sulfate (MAGNESIUM SULFATE) 0 .STK-MED ONE .ROUTE (DC) Ropivacaine (NAROPIN 0.5% 150 MG/30mL) 0 .STK-MED ONE .ROUTE (DC) Aminocaproic Acid (AMICAR) 0 .STK-MED ONE IV (DC) Heparin Sodium (HEPARIN SODIUM) 0 .STK-MED ONE .ROUTE (DC) Propofol (DIPRIVAN 200MG/20ML INJECTION) 0 .STK-MED ONE IV (DC) Dexamethasone Sodium Phosphate (DECADRON) 0 .STK-MED ONE .ROUTE (DC) Fentanyl Citrate (SUBLIMAZE) 0 .STK-MED ONE IV (DC) Lidocaine HCl (XYLOCAINE) 0 .STK-MED ONE .ROUTE (DC) Midazolam HCl (VERSED) 0 .STK-MED ONE .ROUTE (DC) Ondansetron HCl (ZOFRAN) 0 .STK-MED ONE .ROUTE (DC) Rocuronium [place] (ZEMURON) 0 .STK-MED ONE IV (DC) Albumin Human (ALBUMINAR-25%) 100 ML .STK-MED ONE IV (DC) Heparin Sodium (HEPARIN SODIUM) 0 .STK-MED ONE .ROUTE (DC) Lidocaine HCl (XYLOCAINE IV) 0 .STK-MED ONE IV (DC) Mannitol (MANNITOL 25% 12.5GM/50ML) 0 .STK-MED ONE IV (DC) Sodium Bicarbonate (SODIUM BICARBONATE) 0 .STK-MED ONE IV (DC) Sodium Chloride (SODIUM CHLORIDE 0.9%) 100 ML .STK-MED ONE IV (DC) Magnesium Sulfate (MAGNESIUM SULFATE) 0 .STK-MED ONE IV (DC) Phenylephrine HCl (TAMI-SYNEPHRINE 10MG/ML AMP) 0 .STK-MED ONE .ROUTE (DC) Cefazolin Sodium (KEFZOL OR ANCEF) 0 .STK-MED ONE .ROUTE (DC) Metoprolol Tartrate (LOPRESSOR) 6.25 MG PREOP ONCE ONE PO (DC) Vancomycin HCl (VANCOMYCIN HCL) 1,750 MG PREOP ONCALL IV (CKD) Sodium Chloride (SODIUM CHLORIDE 0.9%) 500 MLVerapamil HCl (ISOPTIN) 16.6 MG PREOP ONCALL IV (CKD) Heparin Sodium (Porcine) (HEPARIN SODIUM) 1,660 UNIT Sodium Bicarbonate (SODIUM BICARBONATE) 0.7 ML Nitroglycerin/Dextrose (NITROGLYCERIN 50MG/D5W 250ML) 8.3 MG Lactated Ringer's (LACTATED RINGERS) 949.5 MLAtorvastatin Calcium (LIPITOR) 40 MG 2100 PO Ceftriaxone Sodium (ROCEPHIN 1000MG VIAL) 1,000 MG Q24H IV Sodium Chloride (SODIUM CHLORIDE) 10 MLAcetaminophen (TYLENOL EXTRA STRENGTH) 1,000 MG PREOP ONCALL PO (CKD) Gabapentin (NEURONTIN) 200 MG PREOP ONCALL PO (DC) Ondansetron HCl (ZOFRAN) 4 MG Q6H PRN PRN IV Amlodipine Besylate (NORVASC) 5 MG DAILY PO Acetaminophen (TYLENOL EXTRA STRENGTH) 1,000 MG PREOP ONCALL PO (CKD) Gabapentin (NEURONTIN) 200 MG PREOP ONCALL PO (DC) Pantoprazole (PROTONIX) 40 MG DAILY@0600 PO Cefazolin Sodium (KEFZOL OR ANCEF) 3 GM PREOP ONCALL IV (DC) Sodium Chloride (SODIUM CHLORIDE 0.9%) 250 MLVancomycin HCl (VANCOMYCIN HCL) 1,750 MG PREOP ONCALL IV (CKD) Sodium Chloride (NS 0.9%) 500 MLVerapamil HCl (ISOPTIN) 16.6 MG .Q24H ONE IV (DC) Heparin Sodium (Porcine) (HEPARIN SODIUM) 1,660 UNIT Sodium Bicarbonate (SODIUM BICARBONATE) 0.7 ML Nitroglycerin/Dextrose (NITROGLYCERIN 50MG/D5W 250ML) 8.3 MG Lactated Ringer's (LACTATED RINGERS) 949.5 MLClonidine HCl (CATAPRES) 0.3 MG BID PO (DC) Doxazosin Mesylate (CARDURA) 4 MG BEDTIME PO (DC) Insulin Glargine (Lantus/Semglee) 50 UNIT BID SUBQ (DC) Insulin Human Lispro (HUMALOG) 0 AC HS SUBQ (DC) Dextrose/Water (DEXTROSE 10% IN WATER) 125 ML ASDIR PRN IV (CKD) Dextrose/Water (DEXTROSE 10% IN WATER) 250 ML ASDIR PRN IV (CKD) Glucagon (GLUCAGON) 1 MG ASDIR PRN IM ResultsFindings/Data:Laboratory Tests 12/19/21 2245:[Embedded Image Not Available] 12/19/21 1257:[Embedded Image Not Available] 12/19/21 0440:[Embedded Image Not Available]Laboratory Tests 12/19 12/19 12/19 12/19 1601 9228 2006 236 Blood Gas Puncture Site Art Line Art Line Art Line Art Line O2 Saturation (90 - 100 %) 97.0 [...] - 26.0 MMOL/L) 30.1 *H 32.4 *H 32.1 *H 30.6 *H ABG Total CO2 32.0 34.4 34.2 32.6 ABG Base Excess (-4.0 - 4.0 MMOL/L) 3.7 5.7 H 5.5 H 3.8 ABG Hematocrit (33.0 - 45.0 %) 22 L 23 L 23 L 24 L ABG Hemoglobin (11.0 - 15.0 G/DL) 7.5 L 7.9 L 7.8 L 8.2 L Martin Test N/A Sodium [...] Gas Puncture Site Art Line Art Line [place] Juanita O2 Saturation (90 - 100 %) [...] - 15.0 G/DL) 8.3 L 8.9 L 8.9 L Martin Test N/A VBG pH (7.33 [...] 12/19 12/19 12/19 12/19 1256 1123 1049 1020Blood Gas Puncture Site Art Line O2 Saturation (90 - 100 %) 94.0 99.9 99.8 99.9 ABG pH (7.35 - 7.45) 7.383 7.472 H 7.467 H 7.550 *H ABG pCO2 (35.0 - 45 mmHg) 51.0 *H 35.8 42.3 35.2 ABG pO2 (80 - 100.0 mmHg) 72.1 L 303.1 *H 226.6 *H 278.5 *H ABG PO2/FiO2 Ratio (mm/Hg) 144.20 ABG HCO3 (22.0 - 26.0 MMOL/L) 30.4 *H 26.2 H 30.6 *H 30.8 *H ABG Total CO2 32.0 27.2 31.9 31.8 ABG Base Excess (-4.0 - 4.0 MMOL/L) 5.3 H 2.5 6.2 H 7.9 H ABG Hematocrit (33.0 - 45.0 %) 27 L 26 L 25 L 27 L ABG Hemoglobin (11.0 - 15.0 G/DL) 9.2 L 9.0 L 8.5 L 9.1 L Martin Test N/A Sodium [...] (90 - 100 %) 100.0 100.0 99.9 100.0 ABG pH (7.35 - 7.45) 7.532 *H 7.473 H 7.421 7.439 ABG pCO2 (35.0 - 45 mmHg) 36.8 41.7 42.1 38.6 ABG pO2 (80 - 100.0 mmHg) 427.8 *H 447.6 *H 349.7 *H 482.6 *H ABG HCO3 (22.0 - 26.0 MMOL/L) 30.8 *H 30.6 *H 27.4 H 26.2 H ABG Total CO2 32.0 31.9 28.7 27.3 ABG Base Excess (-4.0 - 4.0 MMOL/L) 7.7 H 6.4 H 2.6 1.9 ABG Hematocrit (33.0 - 45.0 %) 27 L 27 L 30 L 28 L ABG Hemoglobin (11.0 - 15.0 G/DL) 9.2 L 9.2 L 10.3 L 9.5 L Sodium (134 - 147 MEQ/L) 143 143 142 143 Potassium (3.4 - 5.0 MEQ/L) 4.5 4.9 4.2 4.3 Chloride (100 - 108 MEQ/L) 103 102 101 104 Ionized Calcium (1.12 - 1.32 MMOL/L) 1.17 1.13 1.16 1.13 Lactic Acid (0.9 - 1.7 mmol/l) 1.3 1.2 1.1 2.0 H Laboratory Tests 12/19 12/19 12/19 12/19 12/19 2251 2241 5 2006 1856Chemistry Sodium (134 - 147 mEq/L) 146 Potassium (3.4 - 5.0 mEq/L) 4.8 Chloride (100 - 108 mEq/L) 108 Carbon Dioxide (21 - 33 mEq/l) 29 Anion Gap (0 - 20) 14 BUN (7 - 18 mg/dL) 21 H Creatinine (0.6 - 1.3 mg/dL) 1.1 POC Creatinine (0.6 - 1.0 mg/dL) 1.2 H 1.2 H 1.1 H 0.9 Glomerular Filtr Rate (70 - [...] (0.6 - 1.0 mg/dL) 0.9 0.8 0.9 0.9 Glomerular Filtr Rate (70 - 80) [...] 12/19 12/19 12/19 0945 0915 0839 0734 0440 Chemistry Sodium (134 - 147 mEq/L) 143 Potassium (3.4 - 5.0 mEq/L) 4.8 Chloride (100 - 108 mEq/L) 105 Carbon Dioxide (21 - 33 mEq/l) 32 Anion Gap (0 - 20) 11 BUN (7 - 18 mg/dL) 16 Creatinine (0.6 - 1.3 mg/dL) 0.9 POC Creatinine (0.6 - 1.0 mg/dL) 1.0 0.9 0.9 1.0 Glomerular Filtr Rate (70 - [...] 12/19 12/19 12/19 1257 1125 1051 1027 0947Coagulation INR (0.8 - 1.2) 1.5 H PTT (Tk) (25.0 - 39.5 Seconds) 24.4 L PT Patient/Control Mix (9.3 - 12.9 16.7 HSECONDS) Activated Coag Time (74 - 137 SEC) 115 491 H 515 H 642 H 12/19 12/19 12/19 12/19 12/19 0918 0840 0737 0440 0440Coagulation INR (0.8 - 1.2) 1.2 PTT (Nash) (25.0 - 39.5 Seconds) 31.1 PT Patient/Control Mix (9.3 - 12.9 13.5 HSECONDS) Activated Coag Time (74 - 137 SEC) [...] - 77.0 %) 89.4 H 87.6 H 82.5 H Lymph % (Auto) (14.0 - 32.0 %) 2.5 L 3.1 L 5.7 L [place] % (Auto) (4.8 - 9.0 %) 7.6 8.3 10.4 H Eos % (Auto) (0.3 - 3.7 %) 0.0 L 0.1 L 0.8 Baso % (Auto) (0.0 - 2.0 %) 0.1 0.1 0.2 Neut # (Auto) (2.0 - 7.6 x10 3/uL) 5.95 6.83 4.06 Lymph # (Auto) (1.0 - 3.8 x10 3/uL) 0.17 L 0.24 L 0.28 L [place] # (Auto) (0.1 - 0.8 x10 3/uL) 0.51 0.65 0.51 Eos # (Auto) (0.0 - 0.2 x10 3/uL) 0.00 0.01 0.04 Baso # (Auto) (0.0 - 0.2 x10 3/uL) 0.01 0.01 0.01 Abs Immat Gran (auto) (0.00 - 0.03 x10 3/uL) 0.03 0.06 H 0.02 Add Manual Diff NO NO NO Immature Gran % (0.0 - 2.0 %) 0.4 0.8 0.4 Nucleated RBC % (0 - 0 %) 0.0 0.0 0.0 Nucleated RBCs # (Man) (0.0 - 0.1 x10 3/uL) 0.00 0.00 0.00 Platelet Estimate (ADEQUATE THOUSAND) 76-95 Immature Plt Fraction (0.9 - 11.2 %) 6.5 Polychromasia 1+ Anisocytosis 1+ Macrocytosis 1+ Microbiology:12/18 1830 URINE: Urine Culture - RES12/18 1436 NASAL: MRSA DNA Surveillance Screen - CAN Cancelled: Cancelled via OE: Order Cancelled by MD12/18 2003 NASAL: MSSA Surveillance Screen - COMP12/18 2003 NASAL: MRSA DNA Surveillance Screen - COMP Radiology data:Recent Impressions:RADIOLOGY - XR CHEST 1 V 12/19 1315 Report Impression - Status: SIGNED Entered: 12/19/2021 1516 IMPRESSION: 1. There are patchy opacities throughout the lungs, which could represent atelectasis. 2. Increased interstitial markings, which could represent pulmonary edema. Impression By: [email or web address] - Syeda Leblanc M.D.RADIOLOGY - XR CHEST 1 V 12/19 1336 [...] conveyed to the Surgical team at 12:30 p.m.Impression By: [email or web address] - Jonathan Calles M.D. Free Text Obj NotesFree Text Obj Notes:General appearance: elderly female in no acute distressHead/Eyes: atraumatic, normocephalicENT: dry mucosal membranes, ETT in placeNeck: full range of motion, supple/no meningismusCardiovascular: S1S2 regular rate and rhythm, pacedRespiratory: symmetric expansion, no acute respiratory distressAbdomen: soft, obese, non-tender, no distention, no guardingGenitourinary: [place] with clear urineExtremities: pedal pulses, moves all, no clubbing, no cyanosis, LE edema Vascular pulse assessment:palpated: R posterior tibialis, L posterior tibialis, R dorsalis pedis, L dorsalis pedis Musculoskeletal: normal inspection, no muscle spasmNeuro/CAPTAIN FIRE PREVENTION BUREAU: sedated, CNII-XII grossly intact, no motor deficitsSkin: dry, intact and clean surgery dressing Diagnosis, Assessment Plan Diagnosis, Assessment PlanProblem list/A P: 1. S/P MVR (mitral valve replacement) 2. S/P CABG x 1 3. Postoperative pulmonary dysfunction after cardiac surgery 4. Severe mitral regurgitation 5. CAD (coronary artery disease) 6. CKD (chronic kidney disease) 7. Immunosuppressed status 8. RONA on CPAP 9. Chronic a-fib 10. Crohn disease Consultants: cardiology, cardiovascular surgeryPlan discussed with: family, consultants, nurse, interdisc care team, pharmacy/pharmacistCritical care time: Minutes: 45Free text DxA P:76-year-old morbidly obese female with history of HTN, HL, IDDM, smoking, RONA onCPAP and home O2 as needed, macular degeneration, Crohn's disease on immunosuppressant medications, and chronic Afib s/p ablation and PPM (on Xarelto), who was admitted recently with heart failure symptoms. Patient underwent elective cardiac cath that showed severe multivessel coronary artery disease notsuitable for percutaneous intervention. 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 She went for surgical revascularization today and preop JORDEN revealed severe mitral regurgitation. After discussing new findings with family, patient underwent MVR (31 Magna valve), CABG x 1 (ROBERTS-LAD), ILAA and pericardectomy on 12/19/2021. Has EF of 45%. Crystalloid 1 L, urine output 700, Cell Saver 700. She is a-paced at baseline. Surgery went well and patient was transferred to CVICU postop in a stable surgical condition. She is currentlyintubated on 2 mics of epinephrine, 2 mics of Levophed and insulin drip. CI 3.0,SvO2 in 60%s, CVP 15 and PAP in 60s. Neuro: appears intact, keep off sedation, multimodal pain control, minimize narcotics useRespiratory: sats well on minimal vent settings, CPAP trial as tolerated, plan for extubation, may need bipap, obtain serial ABGs, CXR reviewedCardiovascular: Hemodynamically unstable on vasopressors, attempt to wean, monitor PAP and hemodynamic parameters, keep CTs to suctionRenal: strict I/Os, monitor Cr and electrolytes, mild lactic acidosis, trend LA,resuscitate as needed, home diuretics on holdGI: bedside swallow then oral diet after extubation, keep NPO if required bipap,bowel regimenID: trend WBC, continue periop antibiotics, low threshold for infection work-up,treated for UTIHem: acute postop anemia and thrombocytopenia, monitor Hgb and CTs output, no evidence of active bleed, transfuse as needed, holding off on immunosuppressive medsEndo: Blood glucose control with insulin gtt per protocolMisc: PTOT consult, DVT and GI ppx with DAPT and PPI (home med) at 0621 RPT #:[id number] OF [id number]:05:00G.[id number] for patient [id number]:21:44 HCACL 2021-12-19 12:50:00 [id number]:50:[address] [facility] ([facility])Hospitalist Progress NoteREPORT#:[id number] REPORT STATUS: SignedDATE:12/19/21 TIME: 1250 PATIENT: KIAH GILES UNIT #: [id number]#: [id number] [address] [birth year] AGE: 76 SEX: F ATTEND: Jeffry More AUTHOR: Meryl Rosa MD * ALL edits or amendments must be made on the electronic/computer document * SubjectiveChief complaint:she is intubated post CABG.HPI: 76 years old female with PMH of macular degeneration, obesity, obstructive sleepapnea (CPAP at home), former smoker, hypertension, hyperlipidemia, diabetes, Crohn's disease, chronic atrial fibrillation status post 3 ablations in the past(on Xarelto), pacemaker placement is admitted to the hospital post cardiac cath . she need CABG . she had sob for years . sob got worse . she was admitted to the hospital in [place] . she had cath 3 weeks ago . she was reffered to here for stents placement . she had cath yesterday . it show multiple vessels CAD . she is recommend CABG . she still feel sob . no cp no nausea no vomiting no fever no abdominal pain no dizziness . Review of SystemsUnable to obtain due to:sedative Objective GeneralVS/I O:Vital Signs: Date Time Temp Pulse Resp B/P B/P Pulse O2 O2 Flow FiO2 Mean Ox Delivery Rate 12/19 0417 [...] scale Measurement Method PATIENT WEIGHT: Weight (lb): 264Weight (oz): 12.4Weight (kg): 120.100 Medications:Active Meds + DC'd Last 24 HrsCyanocobalamin (Vitamin B-12 500 mcg tab) 500 MCG DAILY PO Ferrous Sulfate (FERROUS SULFATE) 325 MG DAILY PO Bisacodyl (DULCOLAX) 10 MG ONCE PRN RECTAL Magnesium Hydroxide (MILK OF MAGNESIA) 30 ML ONCE PRN PO Clopidogrel Bisulfate (Plavix) 75 MG DAILY PO Polyethylene Glycol (MIRALAX) 17 GM DAILY PO Pantoprazole (PROTONIX) 40 MG DAILY@0600 PO Vancomycin HCl (VANCOMYCIN HCL) 1,000 MG Q12H IV Sodium Chloride (SODIUM CHLORIDE 0.9%) 250 MLDocusate Sodium (COLACE) 100 MG BID PO Metoprolol Tartrate (LOPRESSOR) 12.5 MG Q12HR PO Sennosides (Senna Lax 8.6 MG TABLET) 17.2 MG BEDTIME PO Aspirin (ASPIRIN) 81 MG DAILY PO [...] Acetaminophen (TYLENOL) 650 MG Q4H PRN PRN RECTAL Albumin Human (ALBUMINAR 25%) 25 GM ASDIR PRN IV Calcium Chloride (CALCIUM CHLORIDE) 1 GM ASDIR PRN IV Chlorhexidine Gluconate (PERIDEX) 15 ML Q2H MM (CKD) Dextrose/Water (DEXTROSE 10% IN WATER) 125 ML ASDIR PRN IV (CKD) Dextrose/Water (DEXTROSE 10% IN WATER) 250 ML ASDIR PRN IV (CKD) Epinephrine (ADRENALIN CHLORIDE) 5 MG ASDIR IV Dextrose/Water (DEXTROSE 5% WATER) 245 MLGlucagon (GLUCAGON) 1 MG ASDIR PRN IM Insulin Human Regular (HumuLIN R) 100 UNIT ASDIR IV (CKD) Sodium Chloride (SODIUM CHLORIDE 0.9%) 99 MLMagnesium Sulfate (MAGNESIUM SULFATE 4GM/SWFI 100ML) 100 ML ASDIR PRN IV Magnesium Sulfate (MAGNESIUM SULFATE 2GM/SWFI 50ML) 50 ML ASDIR PRN IV Magnesium Sulfate/Dextrose (MAGNESIUM SULFATE 1GM/D5W 100ML) 100 ML ASDIR PRN IV Nitroglycerin/Dextrose (NITROGLYCERIN 50,000MCG/D5W 250ML) 250 ML ASDIR IV Norepinephrine Bitartrate (NOREPINEPHRINE 8 MG/NS 250 ML) 250 ML TITRATE IV Oxycodone HCl (ROXICODONE) 5 MG Q4H PRN PRN PO (DC) Oxycodone HCl (ROXICODONE) 10 MG Q4H PRN PRN PO (DC) Potassium Chloride (KCL 20MEQ/SWFI 100ML) 100 ML ASDIR PRN IV Sodium Bicarbonate (SODIUM BICARBONATE) 50 MEQ ASDIR PRN IV Sodium Chloride (SODIUM CHLORIDE 0.9%) 1,000 ML .Q20H IV Sodium Chloride (SODIUM CHLORIDE 0.9%) 250 ML Q24H IV Protamine Sulfate (PROTAMINE SULFATE) 0 .STK-MED ONE IV (DC) Heparin Sodium (HEPARIN SODIUM) 0 .STK-MED ONE .ROUTE (DC) Papaverine HCl (PAPAVERINE HCL) 0 .STK-MED ONE IV (DC) Calcium Chloride (CALCIUM CHLORIDE) 0 .STK-MED ONE IV (DC) Epinephrine/Dextrose (Epinephrine 5MG/D5W 250ML) 250 ML .STK-MED ONE IV (DC) Insulin Human Regular (HumuLIN R 100 UNITS/NS 100ML) 100 ML .STK-MED ONE IV (DC) Nitroglycerin/Dextrose (NITROGLYCERIN 50,000MCG/D5W 250ML) 250 ML .STK-MED ONE IV (DC) Norepinephrine Bitartrate (NOREPINEPHRINE 8 MG/NS 250 ML) 250 ML .STK-MED ONE IV (DC) Magnesium Sulfate (MAGNESIUM SULFATE) 0 .STK-MED ONE .ROUTE (DC) Ropivacaine (NAROPIN 0.5% 150 MG/30mL) 0 .STK-MED ONE .ROUTE (DC) Aminocaproic Acid (AMICAR) 0 .STK-MED ONE IV (DC) Heparin Sodium (HEPARIN SODIUM) 0 .STK-MED ONE .ROUTE (DC) Propofol (DIPRIVAN 200MG/20ML INJECTION) 0 .STK-MED ONE IV (DC) Dexamethasone Sodium Phosphate (DECADRON) 0 .STK-MED ONE .ROUTE (DC) Fentanyl Citrate (SUBLIMAZE) 0 .STK-MED ONE IV (DC) Lidocaine HCl (XYLOCAINE) 0 .STK-MED ONE .ROUTE (DC) Midazolam HCl (VERSED) 0 .STK-MED ONE .ROUTE (DC) Ondansetron HCl (ZOFRAN) 0 .STK-MED ONE .ROUTE (DC) Rocuronium [place] (ZEMURON) 0 .STK-MED ONE IV (DC) Albumin Human (ALBUMINAR-25%) 100 ML .STK-MED ONE IV (DC) Heparin Sodium (HEPARIN SODIUM) 0 .STK-MED ONE .ROUTE (DC) Lidocaine HCl (XYLOCAINE IV) 0 .STK-MED ONE IV (DC) Mannitol (MANNITOL 25% 12.5GM/50ML) 0 .STK-MED ONE IV (DC) Sodium Bicarbonate (SODIUM BICARBONATE) 0 .STK-MED ONE IV (DC) Sodium Chloride (SODIUM CHLORIDE 0.9%) 100 ML .STK-MED ONE IV (DC) Magnesium Sulfate (MAGNESIUM SULFATE) 0 .STK-MED ONE IV (DC) Phenylephrine HCl (TAMI-SYNEPHRINE 10MG/ML AMP) 0 .STK-MED ONE .ROUTE (DC) Cefazolin Sodium (KEFZOL OR ANCEF) 0 .STK-MED ONE .ROUTE (DC) Metoprolol Tartrate (LOPRESSOR) 6.25 MG PREOP ONCE ONE PO (DC) Vancomycin HCl (VANCOMYCIN HCL) 1,750 MG PREOP ONCALL IV (CKD) Sodium Chloride (SODIUM CHLORIDE 0.9%) 500 MLVerapamil HCl (ISOPTIN) 16.6 MG PREOP ONCALL IV (CKD) Heparin Sodium (Porcine) (HEPARIN SODIUM) 1,660 UNIT Sodium Bicarbonate (SODIUM BICARBONATE) 0.7 ML Nitroglycerin/Dextrose (NITROGLYCERIN 50MG/D5W 250ML) 8.3 MG Lactated Ringer's (LACTATED RINGERS) 949.5 MLAtorvastatin Calcium (LIPITOR) 40 MG 2100 PO Ceftriaxone Sodium (ROCEPHIN 1000MG VIAL) 1,000 MG Q24H IV Sodium Chloride (SODIUM CHLORIDE) 10 MLAcetaminophen (TYLENOL EXTRA STRENGTH) 1,000 MG PREOP ONCALL PO (CKD) Gabapentin (NEURONTIN) 200 MG PREOP ONCALL PO (DC) Ondansetron HCl (ZOFRAN) 4 MG Q6H PRN PRN IV Amlodipine Besylate (NORVASC) 5 MG DAILY PO Acetaminophen (TYLENOL EXTRA STRENGTH) 1,000 MG PREOP ONCALL PO (CKD) Gabapentin (NEURONTIN) 200 MG PREOP ONCALL PO (DC) Pantoprazole (PROTONIX) 40 MG DAILY@0600 PO Cefazolin Sodium (KEFZOL OR ANCEF) 3 GM PREOP ONCALL IV (DC) Sodium Chloride (SODIUM CHLORIDE 0.9%) 250 MLVancomycin HCl (VANCOMYCIN HCL) 1,750 MG PREOP ONCALL IV (CKD) Sodium Chloride (NS 0.9%) 500 MLVerapamil HCl (ISOPTIN) 16.6 MG .Q24H ONE IV (DC) Heparin Sodium (Porcine) (HEPARIN SODIUM) 1,660 UNIT Sodium Bicarbonate (SODIUM BICARBONATE) 0.7 ML Nitroglycerin/Dextrose (NITROGLYCERIN 50MG/D5W 250ML) 8.3 MG Lactated Ringer's (LACTATED RINGERS) 949.5 MLClonidine HCl (CATAPRES) 0.3 MG BID PO (DC) Doxazosin Mesylate (CARDURA) 4 MG BEDTIME PO (DC) Insulin Glargine (Lantus/Semglee) 50 UNIT BID SUBQ (DC) Insulin Human Lispro (HUMALOG) 0 AC HS SUBQ (DC) Dextrose/Water (DEXTROSE 10% IN WATER) 125 ML ASDIR PRN IV (CKD) Dextrose/Water (DEXTROSE 10% IN WATER) 250 ML ASDIR PRN IV (CKD) Glucagon (GLUCAGON) 1 MG ASDIR PRN IM Physical ExamGeneral appearance: respiratory support, sedatedHead/Eyes: atraumatic, normal conjunctiva/sclera, normal eyelids/periorb., normocephalicENT: intubatedNeck: full range of motion, non-tender, no JVDCardiovascular: normal heart sounds, regular rate rhythmRespiratory: aerating well, clear to auscultationAbdomen: non-tender, normal bowel sounds, soft, no distentionExtremities: moves all, no calf tenderness, no edemaNeuro/CAPTAIN FIRE PREVENTION BUREAU: alertSkin: dry, intact ResultsFindings/Data:Laboratory Tests 12/19 1856 1650 1446Blood Gas Puncture Site Art Line Art Line Art Line Art Line O2 Saturation (90 - 100 %) 93.0 [...] %) 23 L 24 L 24 L 26 L ABG Hemoglobin (11.0 - 15.0 G/DL) 7.8 L 8.2 L 8.3 L 8.9 L Martin Test N/A N/A [...] 12/19 12/19 12/19 12/19 1307 1256 1123 1049Blood Gas Puncture Site [place]ita Art Line O2 Saturation (90 - 100 %) 94.0 99.9 99.8 ABG pH (7.35 - 7.45) 7.383 7.472 H 7.467 H ABG pCO2 (35.0 - 45 mmHg) 51.0 *H 35.8 42.3 ABG pO2 (80 - 100.0 mmHg) 72.1 L 303.1 *H 226.6 *H ABG PO2/FiO2 Ratio (mm/Hg) 144.20 ABG HCO3 (22.0 - 26.0 MMOL/L) 30.4 *H 26.2 H 30.6 *H ABG Total CO2 32.0 27.2 31.9 ABG Base Excess (-4.0 - 4.0 MMOL/L) 5.3 H 2.5 6.2 H ABG Hematocrit (33.0 - 45.0 %) 26 L 27 L 26 L 25 L ABG Hemoglobin (11.0 - 15.0 G/DL) 8.9 L 9.2 L 9.0 L 8.5 L Martin Test N/A VBG [...] (1.12 - 1.32 1.30 1.29 1.33 H 1.18MMOL/L) Lactic Acid (0.9 - 1.7 mmol/l) 1.9 H 2.0 H 2.3 H 1.4 Temperature (F) 98 O2 Delivery Device Adult Vent Vent Mode AC Vent Rate (/MIN) 18 FiO2 (%) 60 50 Tidal Volume (ml) 450 500 PEEP (cmH2O) 5 5 12/19 12/19 12/19 12/19 1020 0945 0915 0839 Blood Gas O2 Saturation (90 - 100 %) 99.9 100.0 100.0 99.9 ABG pH (7.35 - 7.45) 7.550 *H 7.532 *H 7.473 H 7.421 ABG pCO2 (35.0 - 45 mmHg) 35.2 36.8 41.7 42.1 ABG pO2 (80 - 100.0 mmHg) 278.5 *H 427.8 *H 447.6 *H 349.7 *H ABG HCO3 (22.0 - 26.0 MMOL/L) 30.8 *H 30.8 *H 30.6 *H 27.4 H ABG Total CO2 31.8 32.0 31.9 28.7 ABG Base Excess (-4.0 - 4.0 MMOL/L) 7.9 H 7.7 H 6.4 H 2.6 ABG Hematocrit (33.0 - 45.0 %) 27 L 27 L 27 L 30 L ABG Hemoglobin (11.0 - 15.0 G/DL) 9.1 L 9.2 L 9.2 L 10.3 L Sodium (134 - 147 [...] (0.6 - 1.0 mg/dL) 0.9 0.9 1.0 0.9 0.9 POC Glucose (mg/dL) (70 - [...] 12/19 12/19 12/19 1257 1125 1051 1027 0947Coagulation INR (0.8 - 1.2) 1.5 H PTT (Tk) (25.0 - 39.5 Seconds) 24.4 L PT Patient/Control Mix (9.3 - 12.9 16.7 HSECONDS) Activated Coag Time (74 - 137 SEC) 115 491 H 515 H 642 H 12/19 12/19 12/19 12/19 12/19 0918 0840 0737 0440 0440Coagulation INR (0.8 - 1.2) 1.2 PTT (Tk) (25.0 - 39.5 Seconds) 31.1 PT Patient/Control Mix (9.3 - 12.9 13.5 HSECONDS) Activated Coag Time (74 - 137 SEC) [...] - 32.0 %) 3.1 L 5.7 L [place] % (Auto) (4.8 - 9.0 %) 8.3 10.4 H Eos % (Auto) (0.3 - 3.7 %) 0.1 L 0.8 Baso % (Auto) (0.0 - 2.0 %) 0.1 0.2 Neut # (Auto) (2.0 - 7.6 x10 3/uL) 6.83 4.06 Lymph # (Auto) (1.0 - 3.8 x10 3/uL) 0.24 L 0.28 L [place] # (Auto) (0.1 - 0.8 x10 3/uL) 0.65 0.51 Eos # (Auto) (0.0 - 0.2 x10 3/uL) 0.01 0.04 Baso # (Auto) (0.0 - 0.2 x10 3/uL) 0.01 0.01 Abs Immat Gran (auto) (0.00 - 0.03 x10 3/uL) 0.06 H 0.02 Add Manual Diff NO NO Immature Gran % (0.0 - 2.0 %) 0.8 0.4 Nucleated RBC % (0 - 0 %) 0.0 0.0 Nucleated RBCs # (Man) (0.0 - 0.1 x10 3/uL) 0.00 0.00 Platelet Estimate (ADEQUATE THOUSAND) 76-95 Polychromasia 1+ Anisocytosis 1+ Macrocytosis 1+ Radiology data:Recent Impressions:RADIOLOGY - XR CHEST 1 V 12/19 1315 Report Impression - Status: SIGNED Entered: 12/19/2021 1516 IMPRESSION: 1. There are patchy opacities throughout the lungs, which could represent atelectasis. 2. Increased interstitial markings, which could represent pulmonary edema. Impression By: [email or web address] - Syeda Leblanc M.D.RADIOLOGY - XR CHEST 1 V 12/19 1336 [...] conveyed to the Surgical team at 12:30 p.m.Impression By: [email or web address] - Jonathan Calles M.D. Diagnosis, Assessment PlanConsultants: cardiology, cardiovascular surgery Free Text DxA P NotesFree text DxA P notes: 76 years old female with PMH of macular degeneration, obesity, obstructive sleepapnea (CPAP at home), former smoker, hypertension, hyperlipidemia, diabetes, Crohn's disease, chronic atrial fibrillation status post 3 ablations in the past(on Xarelto), pacemaker placement CAD -- multiple vesssels HTNDM HLDCrohn's diseasechronic atrial fibrillation status post 3 ablationsmacular degenerationobesityobstructive sleep apneaacute respiratory failure --post surgery severe mitral valve [...] MVR (31 Magna valve), CABG x 1 (ROBERTS-LAD), ILAA and pericardectomy -- she remain intubated on the vent -- chest tube are in place -on levophed and epinephrine drip -- monitor in CCU review all image and consultants notes Current Medications Sig/Frankie Start time Last Medication Dose Route Stop Time Status Admin Amlodipine Besylate 5 MG DAILY 12/18 899 AC PO 01/17 08 Furosemide 10 MG DAILY 12/18 0800 AC PO 01/17 0859 Lisinopril 40 MG DAILY 12/18 0800 AC PO 01/16 1214 Losartan Potassium 100 MG DAILY 12/18 899 AC PO 01/17 08 Metolazone 10 MG DAILY 12/18 0800 AC PO 01/17 0859 Pantoprazole 40 MG DAILY@0600 12/18 599 AC PO 01/17 0559 Cefazolin Sodium 3 GM PREOP ONCALL 12/18 499 CKD Sodium Chloride 250 ML IV 12/18 2358 [...] IV 12/18 1158 Sodium Chloride 1,000 ML .[id number] 12/17 1200 AC 12/17 IV 12/17 1839 1404 Sodium Chloride 500 ML ASDIR PRN 12/17 1200 AC IV 12/18 1158 Adenosine 0 .STK-MED ONE 12/17 1052 DC IV Sodium Chloride 50 ML .STK-MED ONE 12/17 1052 DC IV Iopamidol 100 ML .STK-MED ONE 12/17 1034 DC 12/17 IV 12/17 1035 1034 Fentanyl Citrate 0 .STK-MED ONE 12/17 1019 DC 12/17 .ROUTE 1030 Midazolam HCl 0 .STK-MED ONE 12/17 1019 DC 12/17 .ROUTE 1030 Heparin Sodium/ 500 ML .STK-MED ONE 12/17 0849 DC 12/17 Sodium Chloride IV 1030 Heparin Sodium 0 .STK-MED ONE 12/18 939 DC 12/17 .ROUTE 1030 Heparin Sodium/ 1,000 ML .STK-MED ONE 12/18 939 DC 12/17 Sodium Chloride IV 1030 Heparin Sodium/ 500 ML .STK-MED ONE 12/18 939 DC 12/17 Sodium Chloride IV 1030 Lidocaine HCl 0 .STK-MED ONE 12/18 939 DC 12/17 .ROUTE 1030 Nitroglycerin/ 250 ML .STK-MED ONE 12/18 939 DC 12/17 Dextrose IV 1030 Verapamil HCl 0 .STK-MED ONE 12/18 939 DC 12/17 IV 1030 Home Medications:RIVAROXABAN (XARELTO) 20 MG PO DAILY amLODIPine (NORVASC) [...] DAILY INSULIN DETEMIR (LEVEMIR FlexTouch (15mL)) 50 UNITS SUBQ BID INSULIN LISPRO (HumaLOG CARTRIDGE (15mL)) 0 UNITS SUBQ TID LIRAGLUTIDE (VICTOZA (6mL)) 1.8 MG SUBQ DAILY metFORMIN (GLUCOPHAGE) 1,000 MG PO BID ADALIMUMAB + SUPPLIES (HUMIRA PREFILLED PEN) 40 MG SUBQ Q14D azaTHIOprine (IMURAN) 50 MG PO DAILY Quality: Gen Med Crit Care Current MedicationsCurrent medication review:Home Medications:RIVAROXABAN (XARELTO) 20 MG PO DAILY amLODIPine (NORVASC) [...] DAILY INSULIN DETEMIR (LEVEMIR FlexTouch (15mL)) 50 UNITS SUBQ BID INSULIN LISPRO (HumaLOG CARTRIDGE (15mL)) 0 UNITS SUBQ TID LIRAGLUTIDE (VICTOZA (6mL)) 1.8 MG SUBQ DAILY metFORMIN (GLUCOPHAGE) 1,000 MG PO BID ADALIMUMAB + SUPPLIES (HUMIRA PREFILLED PEN) 40 MG SUBQ Q14D azaTHIOprine (IMURAN) 50 MG PO DAILY I attest that the foregoing medication list in the medical record is true, accurate, and complete to the best of my knowledge. at 2106 RPT #:[id number] OF REPORTPRProgress [id number]:[id number] e for patient [id number]:06:38 [facility] 2021-12-19 12:08:00 [id number] 4Ezy/wGC7q6V DT1Wu2C3z/D0wNyVpLq+[id number] [place] [id number] PATIENT NAME: KIAH GILES ADMIT DATE: 12/17/21ACCOUNT NO: [id number] ROOM NO: [id number] AGE: 76 REPORT TYPE: eECHOCARDIOGRAM REPORT SEX: F ADMITTING PHYSICIAN:Jeffry More MD ATTENDING PHYSICIAN:Jeffry More MD *[place], [place] [address]Phone: Mpt: [phone] Transthoracic Echocardiogram Patient: Barbara Gilesudkel Date: 12/17/2021 BP: 135 / 63 [id number] 1945 Age: 76 Height: 64 in / 162.6 cmAccession#: [id number] Gender: F Weight: 265.4 lb / 120.7 kgBMI/BSA: 45.7 kg/m 2 / 2.21 m 2 *Ordering Physician: * Kena Macedo *Interpreting Physician: * Aruna Ramos MD*Curatorial Assistant: * Noemí Cotton Indications: CARDIAC SURGERY PRE-OP. Study data: Transthoracic echocardiogram. Procedure: Transthoracicechocardiography was performed. Images were obtained using a Geotender cardiacultrasound machine. The study was technically limited due to pooracoustic window availability. Complete 2D, complete spectral Doppler,and color Doppler. Location: Bedside. Patient status: Inpatient.Patient room number: 3341. Study status: Routine. Findings Left ventricle: The cavity size is normal. Wall thickness is normal.Systolic function is normal. The estimated ejection fraction is 50-54%.Wall motion is normal; there are no regional wall motion abnormalities.Left ventricular diastolic function parameters are indeterminate.Right ventricle: The cavity size is normal. Pacer wire noted in thePATIENT NAME: KIAH GILES right ventricle. Systolic function is low normal.Left atrium: The atrium is mildly dilated.Right atrium: The atrium is dilated. Pacer wire noted in right atrium.Aorta: Aortic root: The aortic root is normal in size.Aortic valve: The valve is structurally normal. The valve istrileaflet. There is no evidence of stenosis. There is noregurgitation.Mitral valve: The valve is structurally normal. The findings areconsistent with stenosis. There is mild to moderate regurgitation.Tricuspid valve: The valve is structurally normal. There ismild-moderate regurgitation.Pulmonic valve: The valve is structurally normal. There is noregurgitation.Pericardium: A trivial pericardial effusion is identified.Pulmonary arteries:The main pulmonary artery is normal-sized.Systemic veins:Inferior vena cava: The vessel is dilated. Measurements [...] E/e', avg, TDI 34 <=14 LVOT Value RefPATIENT NAME: KIAH GILES Diam, S 1.97 cm --------- Area 3.1 [...] 2.53 cm 2 --------- LVOT/AV, Vpeak 0.72 ---------PATIENT NAME: KIAH GILES ratio ARABELLA, Vmax 2.40 cm 2 --------- [...] 5.41 m/sec --------- Pulmonic valve Value Ref IN v, ED 0.69 m/sec --------- Tricuspid valve Value Ref TR peak v 3.34 m/sec <=2.8 Peak RV-RA 45 mm Hg --------- grad, S Aortic root Value Ref Root diam 2.6 cm <4.3 Conclusions Summary: 1. Left ventricle: The cavity size is normal. Wall thickness is normal. Systolic function is normal. The estimated ejection fraction is 50-54%. Wall motion is normal; there are no regional wall motion abnormalities. Left ventricular diastolic function parameters are indeterminate.2. Left atrium: The atrium is mildly dilated.3. Right atrium: The atrium is dilated.4. Mitral valve: There is mild to moderate regurgitation.5. Tricuspid valve: There is mild-moderate regurgitation.6. Pericardium, extracardiac: A trivial pericardial effusion is identified.7. Inferior vena cava: The vessel is dilated. Prepared and electronically signed by Aruna Ramos MD12/19/2021 12:08 PATIENT NAME: KIAH GILES at 1208 PATIENT NAME: KIAH GILES :08:00G. 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 Allergy/Immun:Denies: allergic reaction. ENT:Denies: sore throat. Respiratory:Denies: SOB. GI:Denies: abdominal pain, nausea, vomiting. Heme:Denies: bleeding. Neuro:Denies: focal weakness, headache. Objective GeneralVS/I OLast Documented: Result Date Time Pulse Ox 93 12/18 1126 B/P 159/85 10/06 1126 B/P Mean 109.7 12/18 1125 O2 Delivery Nasal cannula 12/18 1125 O2 Flow Rate 3 12/18 1125 Temp 97.7 12/18 1125 Pulse 75 12/18 1125 Resp 12 12/18 1125 24 hour I O ending at 0700: 12/18 0700 12/17 1900 Intake Total 240 Output Total 800 Balance -560 Intake, Oral 240 Number 1 Bowel Movements Output, Urine 800 PATIENT WEIGHT: Weight (lb): 266Weight (oz): 12.15Weight (kg): 121.000 Physical ExamGeneral appearance: obese, alert, oriented, pleasantHEENT: anictericNeck: supple/no meningismusCardiovascular: normal heart sounds, regular rate rhythmRespiratory: aerating well, symmetric expansion, no distressAbdomen: soft, non-tender, no distentionExtremities: moves allNeuro/[employer]: alert, 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, normal speechPsychiatry: normal affect, normal mood Current MedicationsMedications:Active Meds + DC'd Last 24 HrsHeparin Sodium (HEPARIN SODIUM) 0 .STK-MED ONE .ROUTE (DC) Papaverine HCl (PAPAVERINE HCL) 0 .STK-MED ONE IV (DC) Calcium Chloride (CALCIUM CHLORIDE) 0 .STK-MED ONE IV (DC) Epinephrine/Dextrose (Epinephrine 5MG/D5W 250ML) 250 ML .STK-MED ONE IV (DC) Insulin Human Regular (HumuLIN R 100 UNITS/NS 100ML) 100 ML .STK-MED ONE IV (DC) Nitroglycerin/Dextrose (NITROGLYCERIN 50,000MCG/D5W 250ML) 250 ML .STK-MED ONE IV (DC) Norepinephrine Bitartrate (NOREPINEPHRINE 8 MG/NS 250 ML) 250 ML .STK-MED ONE IV (DC) Magnesium Sulfate (MAGNESIUM SULFATE) 0 .STK-MED ONE .ROUTE (DC) Ropivacaine (NAROPIN 0.5% 150 MG/30mL) 0 .STK-MED ONE .ROUTE (DC) Aminocaproic Acid (AMICAR) 0 .STK-MED ONE IV (DC) Heparin Sodium (HEPARIN SODIUM) 0 .STK-MED ONE .ROUTE (DC) Propofol (DIPRIVAN 200MG/20ML INJECTION) 20 ML .STK-MED ONE IV (DC) Dexamethasone Sodium Phosphate (DECADRON) 0 .STK-MED ONE .ROUTE (DC) Fentanyl Citrate (SUBLIMAZE) 0 .STK-MED ONE IV (DC) Lidocaine HCl (XYLOCAINE) 0 .STK-MED ONE .ROUTE (DC) Midazolam HCl (VERSED) 0 .STK-MED ONE .ROUTE (DC) Ondansetron HCl (ZOFRAN) 0 .STK-MED ONE .ROUTE (DC) Rocuronium [place] (ZEMURON) 0 .STK-MED ONE IV (DC) Albumin Human (ALBUMINAR-25%) 100 ML .STK-MED ONE IV (DC) Heparin Sodium (HEPARIN SODIUM) 0 .STK-MED ONE .ROUTE (DC) Lidocaine HCl (XYLOCAINE IV) 0 .STK-MED ONE IV (DC) Mannitol (MANNITOL 25% 12.5GM/50ML) 0 .STK-MED ONE IV (DC) Sodium Bicarbonate (SODIUM BICARBONATE) 0 .STK-MED ONE IV (DC) Sodium Chloride (SODIUM CHLORIDE 0.9%) 100 ML .STK-MED ONE IV (DC) Magnesium Sulfate (MAGNESIUM SULFATE) 0 .STK-MED ONE IV (DC) Phenylephrine HCl (TAMI-SYNEPHRINE 10MG/ML AMP) 0 .STK-MED ONE .ROUTE (DC) Cefazolin Sodium (KEFZOL OR ANCEF) 0 .STK-MED ONE .ROUTE (DC) Metoprolol Tartrate (LOPRESSOR) 6.25 MG PREOP ONCE ONE PO (DC) Vancomycin HCl (VANCOMYCIN HCL) 1,750 MG PREOP ONCALL IV (CKD) Sodium Chloride (SODIUM CHLORIDE 0.9%) 500 MLVerapamil HCl (ISOPTIN) 16.6 MG PREOP ONCALL IV (CKD) Heparin Sodium (Porcine) (HEPARIN SODIUM) 1,660 UNIT Sodium Bicarbonate (SODIUM BICARBONATE) 0.7 ML Nitroglycerin/Dextrose (NITROGLYCERIN 50MG/D5W 250ML) 8.3 MG Lactated Ringer's (LACTATED RINGERS) 949.5 MLAtorvastatin Calcium (LIPITOR) 40 MG 2100 PO Ceftriaxone Sodium (ROCEPHIN 1000MG VIAL) 1,000 MG Q24H IV Sodium Chloride (SODIUM CHLORIDE) 10 MLAcetaminophen (TYLENOL EXTRA STRENGTH) 1,000 MG PREOP ONCALL PO (CKD) Gabapentin (NEURONTIN) 200 MG PREOP ONCALL PO (CKD) Ondansetron HCl (ZOFRAN) 4 MG Q6H PRN PRN IV Amlodipine Besylate (NORVASC) 5 MG DAILY PO Acetaminophen (TYLENOL EXTRA STRENGTH) 1,000 MG PREOP ONCALL PO (CKD) Gabapentin (NEURONTIN) 200 MG PREOP ONCALL PO (CKD) Pantoprazole (PROTONIX) 40 MG DAILY@0600 PO Cefazolin Sodium (KEFZOL OR ANCEF) 3 GM PREOP ONCALL IV (DC) Sodium Chloride (SODIUM CHLORIDE 0.9%) 250 MLVancomycin HCl (VANCOMYCIN HCL) 1,750 MG PREOP ONCALL IV (CKD) Sodium Chloride (NS 0.9%) 500 MLVerapamil HCl (ISOPTIN) 16.6 MG .Q24H ONE IV (DC) Heparin Sodium (Porcine) (HEPARIN SODIUM) 1,660 UNIT Sodium Bicarbonate (SODIUM BICARBONATE) 0.7 ML Nitroglycerin/Dextrose (NITROGLYCERIN 50MG/D5W 250ML) 8.3 MG Lactated Ringer's (LACTATED RINGERS) 949.5 MLClonidine HCl (CATAPRES) 0.3 MG BID PO Doxazosin Mesylate (CARDURA) 4 MG BEDTIME PO Insulin Glargine (Lantus/Semglee) 50 UNIT BID SUBQ Insulin Human Lispro (HUMALOG) 0 AC HS SUBQ Pravastatin Sodium (PRAVACHOL) 10 MG 2100 PO (DC) Dextrose/Water (DEXTROSE 10% IN WATER) 125 ML ASDIR PRN IV (CKD) Dextrose/Water (DEXTROSE 10% IN WATER) 250 ML ASDIR PRN IV (CKD) Glucagon (GLUCAGON) 1 MG ASDIR PRN IM Atropine Sulfate (ATROPINE SULFATE 0.1MG/ML SYR) 0.5 MG ASDIR PRN IV (DC) Sodium Chloride (SODIUM CHLORIDE 0.9%) 500 ML ASDIR PRN IV (DC) ResultsFindings/Data:Laboratory Tests 12/19 12/19 12/19 12/19 0945 0911 0818 8788 Blood Gas O2 Saturation (90 - 100 %) 100.0 100.0 99.9 100.0 ABG pH (7.35 - 7.45) 7.532 *H 7.473 H 7.421 7.439 ABG pCO2 (35.0 - 45 mmHg) 36.8 41.7 42.1 38.6 ABG pO2 (80 - 100.0 mmHg) 427.8 *H 447.6 *H 349.7 *H 482.6 *H ABG HCO3 (22.0 - 26.0 MMOL/L) 30.8 *H 30.6 *H 27.4 H 26.2 H ABG Total CO2 32.0 31.9 28.7 27.3 ABG Base Excess (-4.0 - 4.0 MMOL/L) 7.7 H 6.4 H 2.6 1.9 ABG Hematocrit (33.0 - 45.0 %) 27 L 27 L 30 L 28 L ABG Hemoglobin (11.0 - 15.0 G/DL) 9.2 L 9.2 L 10.3 L 9.5 L Sodium (134 - 147 MEQ/L) 143 143 142 143 Potassium (3.4 - 5.0 MEQ/L) 4.5 4.9 4.2 4.3 Chloride (100 - 108 MEQ/L) 103 102 101 104 Ionized Calcium (1.12 - 1.32 MMOL/L) 1.17 1.13 1.16 1.13 Lactic Acid (0.9 - 1.7 mmol/l) 1.3 1.2 1.1 2.0 H Laboratory Tests 12/19 12/19 12/19 12/19 12/19 0945 0915 0839 0734 0440Chemistry Sodium (134 - 147 mEq/L) 143 Potassium (3.4 - 5.0 mEq/L) 4.8 Chloride (100 - 108 mEq/L) 105 Carbon Dioxide (21 - 33 mEq/l) 32 Anion Gap (0 - 20) 11 BUN (7 - 18 mg/dL) 16 Creatinine (0.6 - 1.3 mg/dL) 0.9 POC Creatinine (0.6 - 1.0 mg/dL) 1.0 0.9 0.9 1.0 Glomerular Filtr Rate (70 - [...] L Total Alk Phosphatase (20 - 125 71IUnit/L) Total Protein (6.4 - 8.2 g/dL) 7.4 Albumin (3.4 - 5.0 g/dL) 3.80 12/18 12/18 12/18 1922 1556 1125 Chemistry POC Glucose (70 - 110 MG/DL) 260 H 226 H 148 H Laboratory Tests 12/19 12/19 12/19 12/19 0918 0840 0737 0440 Coagulation INR (0.8 - 1.2) 1.2 PT Patient/Control Mix (9.3 - 12.9 SECONDS) 13.5 H Activated Coag Time (74 - 137 [...] (Auto) (14.0 - 32.0 %) 5.7 L [place] % (Auto) (4.8 - 9.0 %) 10.4 H Eos % (Auto) (0.3 - 3.7 %) 0.8 Baso % (Auto) (0.0 - 2.0 %) 0.2 Neut # (Auto) (2.0 - 7.6 x10 3/uL) 4.06 Lymph # (Auto) (1.0 - 3.8 x10 3/uL) 0.28 L [place] # (Auto) (0.1 - 0.8 x10 3/uL) 0.51 Eos # (Auto) (0.0 - 0.2 x10 3/uL) 0.04 Baso # (Auto) (0.0 - 0.2 x10 3/uL) 0.01 Abs Immat Gran (auto) (0.00 - 0.03 x10 3/uL) 0.02 Add Manual Diff NO Immature Gran % (0.0 - 2.0 %) 0.4 Nucleated RBC % (0 - 0 %) 0.0 Nucleated RBCs # (Man) (0.0 - 0.1 x10 3/uL) 0.00 Quality: Trauma Gen Surg Current MedicationsCurrent medication review:Home Medications:RIVAROXABAN (XARELTO) 20 MG PO DAILY amLODIPine (NORVASC) [...] DAILY INSULIN DETEMIR (LEVEMIR FlexTouch (15mL)) 50 UNITS SUBQ BID INSULIN LISPRO (HumaLOG CARTRIDGE (15mL)) 0 UNITS SUBQ TID LIRAGLUTIDE (VICTOZA (6mL)) 1.8 MG SUBQ DAILY metFORMIN (GLUCOPHAGE) 1,000 MG PO BID ADALIMUMAB + SUPPLIES (HUMIRA PREFILLED PEN) 40 MG SUBQ Q14D azaTHIOprine (IMURAN) 50 MG PO DAILY I attest that the foregoing medication list in the medical record is true, accurate, and complete to the best of my knowledge. Diagnosis, Assessment PlanHospital course to date:This very pleasant 76-year-old female, from [facility], with past medical history of macular degeneration, obesity, obstructive sleep apnea (CPAP at home), former smoker, hypertension, hyperlipidemia, diabetes, Crohn's disease, chronic atrial fibrillation status post 3 ablations in the past (on Xarelto), pacemaker placement who had a recent admission to the hospital with heart failure symptoms. She has been admitted to the hospital today for elective heartcath. Coronary angiogram showed severe multivessel coronary artery disease suitable for percutaneous intervention. CV surgery called for evaluation. 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 She will benefit from off-pump ROBERTS to LAD and pericardiotomy. Dr. Romero explainedto the patient the surgery, risks involved, STS score, benefits, complications and alternatives. She acknowledged understanding and is willing to proceedPreop work-up has been initiatedWe will tentatively schedule patient for surgery tomorrow. 12/18 Preop assessment ongoingNo carotid stenosis on ultrasoundCT chest reviewed with Dr. Singhurgery rescheduled for tomorrowNPO after midnight Plan discussed with the patient Consultants: cardiology, cardiovascular surgery at 1032 at 1736 RPT #:[id number] OF REPORTPRProgress [id number]:37:00G.[id number] e for patient avtjTKNFBKFBRQUDBE1930-89-57K21:33:11 [facility] 2021-12-18 11:01:00 [id number]+Gy2Q++dH1/u0umLht4tVqASQ gLOVVJkZEfSA 2+9MWhzC1ioi5+WFJU4UUKX24988-84-14C32:01:[address] [facility] ([facility])Hospitalist Progress NoteREPORT#:[id number] REPORT STATUS: SignedDATE:12/18/21 TIME: 1101 PATIENT: KIAH GILES UNIT #: [id number]#: [id number] ROOM[facility]BED: [facility]DOB: [birth year] AGE: 76 SEX: F ATTEND: Jeffry More AUTHOR: Meryl Rosa MD * ALL edits or amendments must be made on the electronic/computer document * SubjectiveChief complaint:she feel sob . CABG today HPI: 76 years old female with PMH of macular degeneration, obesity, obstructive sleepapnea (CPAP at home), former smoker, hypertension, hyperlipidemia, diabetes, Crohn's disease, chronic atrial fibrillation status post 3 ablations in the past(on Xarelto), pacemaker placement is admitted to the hospital post cardiac cath . she need CABG . she had sob for years . sob got worse . [place] was [place] . she had cath 3 weeks ago . she was reffered to here for stents placement . she had cath yesterday . it show multiple vessels CAD . she is recommend CABG . she still feel sob . no cp no nausea no vomiting no fever no abdominal pain no dizziness . Review of SystemsConstitutional:Denies: fatigue, fever, generalized weakness, lethargy. ENT:Denies: sore throat. Respiratory:Reports: DOUGLASS (dyspnea on exertion), non productive cough, SOB. Denies: wheezing. Cardiovascular:Reports: DOUGLASS (dyspnea on exertion), edema. Denies: chest pain, orthopnea, palpitations. GI:Denies: abdominal pain, nausea, vomiting. :Denies: flank pain. Neuro:Denies: dizziness. Objective GeneralVS/I O:Vital Signs: Date Time Temp Pulse Resp B/P B/P Pulse O2 O2 Flow FiO2 Mean Ox Delivery Rate 12/18 0800 [...] hour I O ending at 0700: 12/18 0712/17 1900 Intake Total 240 Output Total 800 Balance -560 Intake, Oral 240 Number 1 Bowel Movements Output, Urine 800 PATIENT WEIGHT: Weight (lb): 266Weight (oz): 12.15Weight (kg): 121.000 Medications:Active Meds + DC'd Last 24 HrsAtorvastatin Calcium (LIPITOR) 40 MG 2100 PO Amlodipine Besylate (NORVASC) 5 MG DAILY PO Furosemide (LASIX) 10 MG DAILY PO (DC) Lisinopril (ZESTRIL) 40 MG DAILY PO (DC) Losartan Potassium (COZAAR) 100 MG DAILY PO (DC) Metolazone (ZAROXOLYN) 10 MG DAILY PO (DC) Acetaminophen (TYLENOL EXTRA STRENGTH) 1,000 MG PREOP ONCALL PO (CKD) Gabapentin (NEURONTIN) 200 MG PREOP ONCALL PO (CKD) Pantoprazole (PROTONIX) 40 MG DAILY@0600 PO Cefazolin Sodium (KEFZOL OR ANCEF) 3 GM PREOP ONCALL IV (CKD) Sodium Chloride (SODIUM CHLORIDE 0.9%) 250 MLMetoprolol Tartrate (LOPRESSOR) 6.25 MG ONCE ONE PO (DC) Vancomycin HCl (VANCOMYCIN HCL) 1,750 MG PREOP ONCALL IV (DC) Sodium Chloride (SODIUM CHLORIDE 0.9%) 500 MLVancomycin HCl (VANCOMYCIN HCL) 1,750 MG PREOP ONCALL IV (CKD) Sodium Chloride (NS 0.9%) 500 MLVerapamil HCl (ISOPTIN) 16.6 MG .Q24H ONE IV (CKD) Heparin Sodium (Porcine) (HEPARIN SODIUM) 1,660 UNIT Sodium Bicarbonate (SODIUM BICARBONATE) 0.7 ML Nitroglycerin/Dextrose (NITROGLYCERIN 50MG/D5W 250ML) 8.3 MG Lactated Ringer's (LACTATED RINGERS) 949.5 MLClonidine HCl (CATAPRES) 0.3 MG BID PO Doxazosin Mesylate (CARDURA) 4 MG BEDTIME PO Insulin Glargine (Lantus/Semglee) 50 UNIT BID SUBQ Insulin Human Lispro (HUMALOG) 0 AC HS SUBQ Pravastatin Sodium (PRAVACHOL) 10 MG 2100 PO (DC) Dextrose/Water (DEXTROSE 10% IN WATER) 125 ML ASDIR PRN IV (CKD) Dextrose/Water (DEXTROSE 10% IN WATER) 250 ML ASDIR PRN IV (CKD) Glucagon (GLUCAGON) 1 MG ASDIR PRN IM Atropine Sulfate (ATROPINE SULFATE 0.1MG/ML SYR) 0.5 MG ASDIR PRN IV Sodium Chloride (SODIUM CHLORIDE 0.9%) 1,000 ML .[id number] IV (DC) Sodium Chloride (SODIUM CHLORIDE 0.9%) 500 ML ASDIR PRN IV Physical ExamGeneral appearance: alert, awake, orientedHead/Eyes: atraumatic, normal conjunctiva/sclera, normal eyelids/periorb., normocephalicNeck: full range of motion, non-tender, no JVDCardiovascular: normal heart sounds, regular rate rhythmRespiratory: aerating well, clear to auscultationAbdomen: non-tender, normal bowel sounds, soft, no distentionExtremities: moves all, no calf tenderness, no edemaNeuro/[employer]: alert, 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, CNII-XII intact, normal speech, no motor deficits, no sensory deficitsSkin: dry, intact ResultsFindings/Data:Laboratory Tests 12/18 12/18 12/18 12/17 12/17 0310 0310 0310 1915 1324Chemistry Sodium (134 - 147 mEq/L) 141 Potassium [...] L Total Alk Phosphatase (20 - 125 72IUnit/L) B-Natriuretic Peptide (0 - 100 PG/ML) 90.0 Total Protein (6.4 - 8.2 g/dL) 7.2 Albumin (3.4 - 5.0 g/dL) 3.70 Triglycerides (40 - 150 mg/dL) 67 Cholesterol (<200 mg/dL) 108 LDL Cholesterol Measurd (0 - 100 66.3mg/dL) HDL Cholesterol (39 - 96 mg/dL) 33.2 L Cholesterol/HDL Ratio (3.27 - 4.44 3.25 LRATIO) Laboratory Tests 12/18 1106 Coagulation INR (0.8 - 1.2) 1.2 PTT (Tk) (25.0 - 39.5 Seconds) 31.0 PT Patient/Control Mix (9.3 - 12.9 SECONDS) 13.5 H Activated Coag Time (74 - 137 [...] (Auto) (14.0 - 32.0 %) 8.4 L [place] % (Auto) (4.8 - 9.0 %) 9.4 H Eos % (Auto) (0.3 - 3.7 %) 1.3 Baso % (Auto) (0.0 - 2.0 %) 0.5 Neut # (Auto) (2.0 - 7.6 x10 3/uL) 3.17 Lymph # (Auto) (1.0 - 3.8 x10 3/uL) 0.33 L [place] # (Auto) (0.1 - 0.8 x10 3/uL) 0.37 Eos # (Auto) (0.0 - 0.2 x10 3/uL) 0.05 Baso # (Auto) (0.0 - 0.2 x10 3/uL) 0.02 Abs Immat Gran (auto) (0.00 - 0.03 x10 3/uL) 0.01 Add Manual Diff NO Immature Gran % (0.0 - 2.0 %) 0.3 Nucleated RBC % (0 - 0 %) 0.0 Nucleated RBCs # (Man) (0.0 - 0.1 x10 3/uL) 0.00 Laboratory Tests 12/18 2015 Serology SARS-CoV-2 Ag (Rapid) (Negative) Negative Laboratory Tests 12/18 031 Urines Urine Color (YEL/STRAW) YELLOW Urine Appearance (CLEAR) SL CLOUDY Urine pH (5.0 - 7.0) 5.0 Ur Specific [place] (1.005 - 1.030) 1.032 H Urine Protein [...] Surveillance Screen - COMP NASAL Diagnosis, Assessment PlanConsultants: cardiology, cardiovascular surgery Free Text DxA P NotesFree text DxA P notes: 76 years old female with PMH of macular degeneration, obesity, obstructive sleepapnea (CPAP at home), former smoker, hypertension, hyperlipidemia, diabetes, Crohn's disease, chronic atrial fibrillation status post 3 ablations in the past(on Xarelto), pacemaker placement CAD -- multiple vesssels HTNDM HLDCrohn's diseasechronic atrial fibrillation status post 3 ablationsmacular degenerationobesityobstructive sleep apnea CAD -- cardiology consult CV surgeon consult CABG -- AM ASA/lipitor afib -- rate control -- hold xarelto for surgery HTN-- continue home med DM-- on lantus -- sliding scale HLD-- on lipitor RONA--cpap as need DVTP -- heparin 12/18- feel sob -- CABG -- afternoon Current Medications Sig/Frankie Start time Last Medication Dose Route Stop Time Status Admin Amlodipine Besylate 5 MG DAILY 10/06 0900 AC PO 01/17 0859 Furosemide 10 MG DAILY 12/18 899 AC PO 01/17 0859 Lisinopril 40 MG DAILY 12/18 899 AC PO 01/16 1214 Losartan Potassium 100 MG DAILY 12/18 899 AC PO 01/17 08 Metolazone 10 MG DAILY 12/18 899 AC PO 01/17 0859 Pantoprazole 40 MG DAILY@0600 12/18 599 AC PO 01/17 0559 Cefazolin Sodium 3 GM PREOP ONCALL 12/18 050 CKD Sodium Chloride 250 ML IV 12/18 235 [...] IV 12/18 1158 Sodium Chloride 1,000 ML .[id number] 12/17 1200 AC 12/17 IV 12/17 1839 1404 Sodium Chloride 500 ML ASDIR PRN 12/17 1200 AC IV 12/18 1158 Adenosine 0 .STK-MED ONE 12/17 105 DC IV Sodium Chloride 50 ML .STK-MED ONE 12/17 1052 DC IV Iopamidol 100 ML .STK-MED ONE 12/17 1034 DC 10 IV 12/17 1035 1034 Fentanyl Citrate 0 .STK-MED ONE 12/17 1019 DC 12/17 .ROUTE 1030 Midazolam HCl 0 .STK-MED ONE 12/17 1019 DC 12/17 .ROUTE 1030 Heparin Sodium/ 500 ML .STK-MED ONE 12/17 0949 DC 12/17 Sodium Chloride IV 1030 Heparin Sodium 0 .STK-MED ONE 12/17 0940 DC 12/17 .ROUTE 1030 Heparin Sodium/ 1,000 ML .STK-MED ONE 12/17 0940 DC 12/17 Sodium Chloride IV 1030 Heparin Sodium/ 500 ML .STK-MED ONE 12/17 0940 DC 12/17 Sodium Chloride IV 1030 Lidocaine HCl 0 .STK-MED ONE 12/17 0940 DC 12/17 .ROUTE 1030 Nitroglycerin/ 250 ML .STK-MED ONE 12/17 0840 DC 12/17 Dextrose IV 1030 Verapamil HCl 0 .STK-MED ONE 12/17 0940 DC 12/17 IV 1030 Home Medications:RIVAROXABAN (XARELTO) 20 MG PO DAILY amLODIPine (NORVASC) [...] DAILY INSULIN DETEMIR (LEVEMIR FlexTouch (15mL)) 50 UNITS SUBQ BID INSULIN LISPRO (HumaLOG CARTRIDGE (15mL)) 0 UNITS SUBQ TID LIRAGLUTIDE (VICTOZA (6mL)) 1.8 MG SUBQ DAILY metFORMIN (GLUCOPHAGE) 1,000 MG PO BID ADALIMUMAB + SUPPLIES (HUMIRA PREFILLED PEN) 40 MG SUBQ Q14D azaTHIOprine (IMURAN) 50 MG PO DAILY Quality: Gen Med Crit Care Current MedicationsCurrent medication review:Home Medications:RIVAROXABAN (XARELTO) 20 MG PO DAILY amLODIPine (NORVASC) [...] DAILY INSULIN DETEMIR (LEVEMIR FlexTouch (15mL)) 50 UNITS SUBQ BID INSULIN LISPRO (HumaLOG CARTRIDGE (15mL)) 0 UNITS SUBQ TID LIRAGLUTIDE (VICTOZA (6mL)) 1.8 MG SUBQ DAILY metFORMIN (GLUCOPHAGE) 1,000 MG PO BID ADALIMUMAB + SUPPLIES (HUMIRA PREFILLED PEN) 40 MG SUBQ Q14D azaTHIOprine (IMURAN) 50 MG PO DAILY I attest that the foregoing medication list in the medical record is true, accurate, and complete to the best of my knowledge. at 1104 RPT #:[id number] OF REPORTPRProgress [id number]:01:00G.[id number] e for patient eoydYZCTEORMVJGNMU2835-48-30S92:04:21 [facility] 2021-12-18 10:17:00 [id number] QlSEFDg2Qilt +j[id number]:17:[address] [facility] ([facility])Cardiology ConsultationREPORT#:[id number] REPORT STATUS: SignedDATE:12/18/21 TIME: 1017 PATIENT: KIAH GILES UNIT #: [id number]#: [id number] [address] [birth year] AGE: 76 SEX: F ATTEND: Jeffry More AUTHOR: Jayna Gonzales NP * ALL edits or amendments must be made on the electronic/computer document * History of Present Illness HPIRequesting Clinician: Matthew Burton NPReason for consult:[place] complaint:nauseasobPCP:PCP: Dong Fuchs MD HPI:Ms Giles is a 76 y/o Femal w/ PMHx: CAD, HLD, T2DM, RONA (CPAP at home), smoker,Crohn's disease, AF s/p ablation (on Xarelto), s/p PPM and lymphedema; patient is from [place]. Dr. Ramos is consulted for CAD. Patient experienced intermittent nonradiated chest tightness. She reports sob x 1 year, was placed on diuretics; however her sob is not resolved. She came in yesterday, 12/17 for elective LHC which showed 70% stenosis of left proximal LAD, diffuse LAD, distalLAD 80% stenosis, constrictive pericarditis. CTS was consulted and scheduled CABG today. Per patient, her last day of Xarelto was 12/13. She reports nausea, no vomitting, no diarrhea, no melena.BUN 12, creatinine 0.8. Total cholesterol 108, triglycerides 67, HDL 33.2, LDL 66.3.At present, reports nausea, NAD; await for the surgery later today. History - Adult longitudinalPast medical history:Reports: Atrial fibrillation, Diabetes mellitus, Hypertension, Dyslipidemia. Additional medical history:Clot degenerationObstructive sleep apneaChron's disease Past surgical history:Reports: Pacemaker (SJM). Alcohol use: Denies EtOH useDrug use: Denies recreational drugsSmoking status for patients 13 years old or older: Never SmokerHome medications:Home Medications:RIVAROXABAN (XARELTO) 20 MG PO DAILY amLODIPine (NORVASC) [...] DAILY INSULIN DETEMIR (LEVEMIR FlexTouch (15mL)) 50 UNITS SUBQ BID INSULIN LISPRO (HumaLOG CARTRIDGE (15mL)) 0 UNITS SUBQ TID LIRAGLUTIDE (VICTOZA (6mL)) 1.8 MG SUBQ DAILY metFORMIN (GLUCOPHAGE) 1,000 MG PO BID ADALIMUMAB + SUPPLIES (HUMIRA PREFILLED PEN) 40 MG SUBQ Q14D azaTHIOprine (IMURAN) 50 MG PO DAILY Allergies:Coded Allergies:ciprofloxacin (From CIPRO) (Severe, JOINT PAIN 12/12/21)morphine (Severe, RASH, SWELLING 12/12/21) Review of SystemsConstitutional:Denies: chills, fatigue, fever, generalized weakness. Skin:Denies: diaphoresis, ecchymosis. Allergy/Immun:Denies: itching, rhinorrhea. Objective GeneralVS/I O:Vital Signs: Date Time Temp Pulse Resp B/P [...] Output, Urine 800 PATIENT WEIGHT: Weight (lb): 266Weight (oz): 12.15Weight (kg): 121.000 Medications:Active Meds + DC'd Last 24 HrsAtorvastatin Calcium (LIPITOR) 40 MG 2100 PO Ondansetron [...] Gabapentin (NEURONTIN) 200 MG PREOP ONCALL PO (CKD) Pantoprazole (PROTONIX) 40 MG DAILY@0600 PO Cefazolin Sodium (KEFZOL OR ANCEF) 3 GM PREOP ONCALL IV (CKD) Sodium Chloride (SODIUM CHLORIDE 0.9%) 250 MLMetoprolol Tartrate (LOPRESSOR) 6.25 MG ONCE ONE PO (DC) Vancomycin HCl (VANCOMYCIN HCL) 1,750 MG PREOP ONCALL IV (DC) Sodium Chloride (SODIUM CHLORIDE 0.9%) 500 MLVancomycin HCl (VANCOMYCIN HCL) 1,750 MG PREOP ONCALL IV (CKD) Sodium Chloride (NS 0.9%) 500 MLVerapamil HCl (ISOPTIN) 16.6 MG .Q24H ONE IV (CKD) Heparin Sodium (Porcine) (HEPARIN SODIUM) 1,660 UNIT Sodium Bicarbonate (SODIUM BICARBONATE) 0.7 ML Nitroglycerin/Dextrose (NITROGLYCERIN 50MG/D5W 250ML) 8.3 MG Lactated Ringer's (LACTATED RINGERS) 949.5 MLClonidine HCl (CATAPRES) 0.3 MG BID PO Doxazosin Mesylate (CARDURA) 4 MG BEDTIME PO Insulin Glargine (Lantus/Semglee) 50 UNIT BID SUBQ Insulin Human Lispro (HUMALOG) 0 AC HS SUBQ Pravastatin Sodium (PRAVACHOL) 10 MG 2100 PO (DC) Dextrose/Water (DEXTROSE 10% IN WATER) 125 ML ASDIR PRN IV (CKD) Dextrose/Water (DEXTROSE 10% IN WATER) 250 ML ASDIR PRN IV (CKD) Glucagon (GLUCAGON) 1 MG ASDIR PRN IM Atropine Sulfate (ATROPINE SULFATE 0.1MG/ML SYR) 0.5 MG ASDIR PRN IV (DC) Sodium Chloride (SODIUM CHLORIDE 0.9%) 1,000 ML .[id number] IV (DC) Sodium Chloride (SODIUM CHLORIDE 0.9%) 500 ML ASDIR PRN IV (DC) Physical ExamGeneral appearance: obese, alert, awake, oriented, no acute distress, conversational, mental status normal, no respiratory distressHead/Eyes: atraumatic, clear corneaENT: moist mucosal membranesNeck: full range of motion, no JVDCardiovascular: CV assessment: regular rate and rhythm, no murmurRespiratory: decreased breath sounds, on oxygen (3LNC), no distressAbdomen: soft, non-tender, normal bowel sounds, no distention, no guardingGenitourinary: no flank pain, no urinary catheterUpper extremity: UE assessment: normal temperature, no edemaLower extremity: LE assessment: normal temperature, no edemaNeuro/CAPTAIN FIRE PREVENTION BUREAU: alert, 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, normal speechPsychiatry: normal affect ResultsFindings/Data:Laboratory Tests 12/17 12/18 12/18 12/18 12/18 1915 0310 0310 0310 0737Chemistry Sodium (134 - 147 mEq/L) 141 Potassium [...] L Total Alk Phosphatase (20 - 125 72IUnit/L) B-Natriuretic Peptide (0 - 100 PG/ML) 90.0 Total Protein (6.4 - 8.2 g/dL) 7.2 Albumin (3.4 - 5.0 g/dL) 3.70 Triglycerides (40 - 150 mg/dL) 67 Cholesterol (<200 mg/dL) 108 LDL Cholesterol Measurd (0 - 100 66.3mg/dL) HDL Cholesterol (39 - 96 mg/dL) 33.2 L Cholesterol/HDL Ratio (3.27 - 4.44 3.25 LRATIO) 12/18 1125 Chemistry POC Glucose (70 - 110 MG/DL) 148 H Laboratory Tests 12/18 309 Coagulation INR (0.8 - 1.2) 1.2 PTT (Tk) (25.0 - 39.5 Seconds) 31.0 PT Patient/Control Mix (9.3 - 12.9 SECONDS) 13.5 H Laboratory Tests 12/18 0310 Hematology WBC (4.5 - 11.0 x10 3/uL) [...] (Auto) (14.0 - 32.0 %) 8.4 L [place] % (Auto) (4.8 - 9.0 %) 9.4 H Eos % (Auto) (0.3 - 3.7 %) 1.3 Baso % (Auto) (0.0 - 2.0 %) 0.5 Neut # (Auto) (2.0 - 7.6 x10 3/uL) 3.17 Lymph # (Auto) (1.0 - 3.8 x10 3/uL) 0.33 L [place] # (Auto) (0.1 - 0.8 x10 3/uL) 0.37 Eos # (Auto) (0.0 - 0.2 x10 3/uL) 0.05 Baso # (Auto) (0.0 - 0.2 x10 3/uL) 0.02 Abs Immat Gran (auto) (0.00 - 0.03 x10 3/uL) 0.01 Add Manual Diff NO Immature Gran % (0.0 - 2.0 %) 0.3 Nucleated RBC % (0 - 0 %) 0.0 Nucleated RBCs # (Man) (0.0 - 0.1 x10 3/uL) 0.00 Laboratory Tests 12/18 2015 Serology SARS-CoV-2 Ag (Rapid) (Negative) Negative Laboratory Tests 12/18 309 Urines Urine Color (YEL/STRAW) YELLOW Urine Appearance (CLEAR) SL CLOUDY Urine pH (5.0 - 7.0) 5.0 Ur Specific [place] (1.005 - 1.030) 1.032 H Urine Protein [...] Peptide (0 - 100 PG/ML) 90.0 Radiology Data:Recent Impressions:CAT SCAN - CT CHEST W/O CONTRAST 12/17 [...] pneumonia. Impression By: [email or web address] - Jose Rankin D.O.ULTRASOUND - DUP VEIN RAJAN 12/17 1846 Report Impression - Status: SIGNED Entered: 12/17/20212001 IMPRESSION: Greater saphenous vein is patent. Vein mapping as described. Impression By: AureliaWH3 - Anoop Lilly M.D.ULTRASOUND - DUP EXTRACRANIAL RAJAN 12/17 1846 Report Impression - Status: SIGNED Entered: 12/17/2021 1903 IMPRESSION: No flow-limiting proximal internal carotid arterial [...] Total occlusion is no detectable patent lumen. Impression By: AureliaJVN1 - Margarito Delgado M.D. Results: labs reviewed, vital signs reviewed, vital signs stable, rhythm personally rev'd, x-ray personally reviewed, current med profile rev'dTelemetry Interpretation:Normal sinus rhythm Diagnosis, Assessment PlanConsultants: cardiology, cardiovascular surgeryPlan discussed with: patient, nurse Free Text DxA P NotesFree Text DxA P Notes:Ms Giles is a 76 y/o Femal w/ PMHx: CAD, HLD, T2DM, RONA (CPAP at home), smoker,Crohn's disease, AF s/p ablation (on Xarelto), s/p PPM and lymphedema; patient is from [place]. Dr. Ramos is consulted for CAD. Patient experienced intermittent nonradiated chest tightness. She reports sob x 1 year, was placed on diuretics; however her sob is not resolved. She came in yesterday, 12/17 for elective LHC which showed 70% stenosis of left proximal LAD, diffuse LAD, distalLAD 80% stenosis, constrictive pericarditis. CTS was consulted and scheduled CABG today. Per patient, her last day of Xarelto was 12/13. She reports nausea, no vomitting, no diarrhea, no melena.BUN 12, creatinine 0.8. Total cholesterol 108, triglycerides 67, HDL 33.2, LDL 66.3.At present, reports nausea, NAD; await for the surgery later today. - CAD. Will go for [...] w/pt. Thank you for the kind consult. at 1441 at 0804 [facility] #:[id number] OF REPORTGANdoriovdvaao6636-27-07W21:17:00G.DBAB2061 [id number] for patient dnbzHRJFHOHPIVQJWJ2394-73-34N49:41:58 [facility] 2021-12-17 18:05:00 [id number] cjAAX610Xc1Z xfFZ8x5mMGvagdtclkziTpVh2637-03-06W18:05:00 [facility]ospital[facility] History PhysicalREPORT#:[id number] REPORT STATUS: SignedDATE:12/17/21 TIME: 1805 PATIENT: KIAH GILES UNIT #: [id number]#: [id number] [address] [birth year] AGE: 76 SEX: F ATTEND: Jeffry More MDA AUTHOR: Meryl Rosa MD * ALL edits or amendments must be made on the electronic/computer document * History of Present Illness HPIChief complaint:sobHPI: 76 years old female with PMH of macular degeneration, obesity, obstructive sleepapnea (CPAP at home), former smoker, hypertension, hyperlipidemia, diabetes, Crohn's disease, chronic atrial fibrillation status post 3 ablations in the past(on Xarelto), pacemaker placement is admitted to the hospital post cardiac cath . she need CABG . she had sob for years . sob got worse . she was admitted to the hospital in [place] . she had cath 3 weeks ago . she was reffered to here for stents placement . she had cath yesterday . it show multiple vessels CAD . she is recommend CABG . she still feel sob . no cp no nausea no vomiting no fever no abdominal pain no dizziness . History Past Medical Surgical HxAdditional medical history:Clot degeneration Obstructive sleep apnea Hypertension Hyperlipidemia Diabetes Chrons disease Chronic A. fibAdditional surgical history:Pacemaker placement Social HistoryAlcohol use: Denies EtOH useDrug use: Denies recreational drugsSmoking status for patients 13 years old or older: Never Smoker Medication/Allergy-Vaccine HxAllergies:Coded Allergies:ciprofloxacin (From CIPRO) (Severe, JOINT PAIN 12/12/21)morphine (Severe, RASH, SWELLING 12/12/21) Review of SystemsConstitutional:Denies: fatigue, fever, generalized weakness, lethargy. ENT:Denies: sore throat. Respiratory:Reports: DOUGLASS (dyspnea on exertion), non productive cough, SOB. Denies: wheezing. Cardiovascular:Reports: DOUGLASS (dyspnea on exertion), edema. Denies: chest pain, orthopnea, palpitations. GI:Denies: abdominal pain, diarrhea, nausea, vomiting. :Denies: dysuria, flank pain, frequency. Neuro:Denies: dizziness, seizure, syncope. Physical ExamVS/I O:Vital Signs Date Temp Pulse Resp B/P B/P Mean Pulse Ox FiO2 12/17 36.4 45 16 135/63 86.6 97 Last Documented: Result Date Time Pulse Ox 97 12/17 1329 B/P 135/63 12/17 1329 B/P Mean 86.6 12/17 1329 O2 Delivery Nasal cannula 12/17 132 Temp 36.4 12/17 1329 Pulse 45 12/17 1329 Resp 16 12/17 1329 O2 Flow Rate 2 12/17 1300 Patient Weight and BMI Weight (kg): 121.000 BMI: 45.8 General appearance: alert, awake, orientedHead/Eyes: atraumatic, normal conjunctiva/sclera, normal eyelids/periorb., normocephalicNeck: full range of motion, non-tender, no JVDCardiovascular: normal heart sounds, regular rate rhythmRespiratory: aerating well, clear to auscultationAbdomen: non-tender, normal bowel sounds, soft, no distentionExtremities: moves all, no calf tenderness, no edemaNeuro/CAPTAIN FIRE PRE[employer]ION BUREAU: alert, 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, CNII-XII intact, normal speech, no motor deficits, no sensory deficitsSkin: dry, intact ResultsFindings/Data:Laboratory Tests: 12/17 12/17 12/17 12/17 1324 1106 1050 0757 Chemistry POC Glucose (70 - 110 MG/DL) 140 H 164 H Coagulation Activated Coag Time (74 - 137 SEC) 265 H 335 H Radiology data:Recent Impressions:CAT SCAN - CT CHEST W/O CONTRAST 12/17 173 Report Impression - Status: SIGNED Entered: 12/17/2021 1849 IMPRESSION: 1. There is a 2 lead [...] pneumonia. Impression By: [id number] - Jose Rankin D.O.ULTRASOUND - DUP VEIN RAJAN 12/17 1846 Report Impression - Status: SIGNED Entered: 12/17/20212001 IMPRESSION: Greater saphenous vein is patent. Vein mapping as described. Impression By: AureliaWH3 - Anoop Lilly M.D.ULTRASOUND - DUP EXTRACRANIAL RAJAN 12/17 1846 Report Impression - Status: SIGNED Entered: 12/17/2021 1903 IMPRESSION: No flow-limiting proximal internal carotid arterial [...] Total occlusion is no detectable patent lumen. Impression By: AureliaJVN1 - Margarito Delgado M.D. Diagnosis, Assessment PlanFree Text A P: 76 years old female with PMH of macular degeneration, obesity, obstructive sleepapnea (CPAP at home), former smoker, hypertension, hyperlipidemia, diabetes, Crohn's disease, chronic atrial fibrillation status post 3 ablations in the past(on Xarelto), pacemaker placement CAD -- multiple vesssels HTNDM HLDCrohn's diseasechronic atrial fibrillation status post 3 ablationsmacular degenerationobesityobstructive sleep apnea CAD -- cardiology consult CV surgeon consult CABG -- AM ASA/lipitor afib -- rate control -- hold xarelto for surgery HTN-- continue home med DM-- on lantus -- sliding scale HLD-- on lipitor RONA--cpap as need DVTP -- lovenox Current Medications Sig/Frankie Start time Last Medication Dose Route Stop [...] Sodium 3 GM PREOP ONCALL 12/18 499 CKD Sodium Chloride 250 ML IV 12/18 2358 [...] IV 12/18 1158 Sodium Chloride 1,000 ML .[id number] 12/17 1200 AC 12/17 IV 12/17 1839 1404 Sodium Chloride 500 ML ASDIR PRN 12/17 1200 AC IV 12/18 1158 Adenosine 0 .STK-MED ONE 12/17 1052 DC IV Sodium Chloride 50 ML .STK-MED ONE 12/17 1052 DC IV Iopamidol 100 ML .STK-MED ONE 12/17 1034 DC 12/17 IV 12/17 1035 1034 Fentanyl Citrate 0 .STK-MED ONE 12/17 1019 DC 12/17 .ROUTE 1030 Midazolam HCl 0 .STK-MED ONE 12/17 1019 DC 12/17 .ROUTE 1030 Heparin Sodium/ 500 ML .STK-MED ONE 12/17 0949 DC 12/17 Sodium Chloride IV 1030 Heparin Sodium 0 .STK-MED ONE 12/17 0940 DC 12/17 .ROUTE 1030 Heparin Sodium/ 1,000 ML .STK-MED ONE 12/17 0940 DC 12/17 Sodium Chloride IV 1030 Heparin Sodium/ 500 ML .STK-MED ONE 12/17 0940 DC 12/17 Sodium Chloride IV 1030 Lidocaine HCl 0 .STK-MED ONE 12/17 0940 DC 12/17 .ROUTE 1030 Nitroglycerin/ 250 ML .STK-MED ONE 12/17 0940 DC 12/17 Dextrose IV 1030 Verapamil HCl 0 .STK-MED ONE 12/17 0940 DC 12/17 IV 1030 Home Medications:RIVAROXABAN (XARELTO) 20 MG PO DAILY amLODIPine (NORVASC) [...] DAILY INSULIN DETEMIR (LEVEMIR FlexTouch (15mL)) 50 UNITS SUBQ BID INSULIN LISPRO (HumaLOG CARTRIDGE (15mL)) 0 UNITS SUBQ TID LIRAGLUTIDE (VICTOZA (6mL)) 1.8 MG SUBQ DAILY metFORMIN (GLUCOPHAGE) 1,000 MG PO BID ADALIMUMAB + SUPPLIES (HUMIRA PREFILLED PEN) 40 MG SUBQ Q14D azaTHIOprine (IMURAN) 50 MG PO DAILY Consultants: cardiology, cardiovascular surgery Quality: [facility] Current MedicationsCurrent medication review:Home Medications:RIVAROXABAN (XARELTO) 20 MG PO DAILY amLODIPine (NORVASC) [...] DAILY INSULIN DETEMIR (LEVEMIR FlexTouch (15mL)) 50 UNITS SUBQ BID INSULIN LISPRO (HumaLOG CARTRIDGE (15mL)) 0 UNITS SUBQ TID LIRAGLUTIDE (VICTOZA (6mL)) 1.8 MG SUBQ DAILY metFORMIN (GLUCOPHAGE) 1,000 MG PO BID ADALIMUMAB + SUPPLIES (HUMIRA PREFILLED PEN) 40 MG SUBQ Q14D azaTHIOprine (IMURAN) 50 MG PO DAILY I attest that the foregoing medication list in the medical record is true, accurate, and complete to the best of my knowledge. at 09[facility] #:[id number] OF REPORTHPHistory and physical wevkfywjzid5198-11-54G97:05:00G.[id number] vailable for patient gdxvLHVQVLWOGKAFPC0866-09-15C00:52:29 [facility] 2021-12-17 13:47:00 [id number]/inLHdAt/uYoZdTzn+2Zh+ jPEoodZetfSn 5RCiP544b1Yu6SDv33HtCH3p7773-67-92T09:47:[address] [facility] ([facility]ENTERCardiothoracic Surgery ConsultREPORT#:[id number] REPORT STATUS: SignedDATE:12/17/21 TIME: 134 PATIENT: KIAH GILES UNIT #: [id number]#: [id number] ROOM/BED: 3363-1DOB: [birth year] AGE: 76 SEX: F ATTEND: Jeffry More AUTHOR: Kena Macedo VISUAL EFFECTS ARTIST * ALL edits or amendments must be made on the electronic/computer document * Vidhya Pulido 12/17/21 1347:History of Present Illness HPIChief complaint:Shortness of breath PCP:PCP: Dong Fuchs MD Requesting ClinicianDr Yared HPI:This very pleasant 76-year-old female, from [facility], with past medical history of macular degeneration, obesity, obstructive sleep apnea (CPAP at home), former smoker, hypertension, hyperlipidemia, diabetes, Crohn's disease, chronic atrial fibrillation status post 3 ablations in the past (on Xarelto), pacemaker placement who had a recent admission to the hospital with heart failure symptoms. She has been admitted to the hospital today for elective heart cath. Coronary angiogram showed severe multivessel coronary artery disease suitable for percutaneous intervention. CV surgery called for evaluation. HistoryAdditional Medical History:Clot degenerationObstructive sleep apneaHypertensionHyperlipidemiaDiabetesChrons diseaseChronic A. fib Additional Surgical History:Pacemaker placement Alcohol Use Denies EtOH useDrug Use Denies recreational drugsSmoking status for patients 13 years old or older: Never SmokerMedications:Home Medications:Medication Dose/Rte/Freq Days Qty Entered Last Max Daily Dose Reviewed RIVAROXABAN (XARELTO) 20 MG PO DAILY 12/17/21 12/17/21Strength: 20 MG TAB 0800 0801 amLODIPine (NORVASC) 5 MG PO DAILY 12/17/21 12/17/21Strength: 5 MG TAB 08 0812 cloNIDine (CATAPRES) 0.3 MG PO BID 12/17/21 12/17/21Strength: 0.3 MG TAB 0805 0812 DOXAZOSIN (CARDURA) 12/17/21 12/17/21Strength: 4 MG TAB 0805 0812 LISINOPRIL (ZESTRIL) 12/17/21 12/17/21Strength: 40 MG TAB 0806 0812 OLMESARTAN (BENICAR) 40 MG PO DAILY 12/17/21 12/17/21Strength: 40 MG TAB 0806 0812 PRAVASTATIN (PRAVACHOL) 12/17/21 12/17/21Strength: 10 MG TAB 0806 0812 FUROSEMIDE (LASIX) 10 MG PO DAILY 12/17/21 12/17/21Strength: 20 MG TAB 0807 0812 METOLAZONE (ZAROXOLYN) 10 MG PO DAILY 12/17/21 12/17/21Strength: 10 MG TAB 0808 0812 POTASSIUM CHLORIDE ER 10 MEQ PO DAILY 12/17/21 12/17/21 (MICRO-K) 08811Strength: 10 MEQ CAP.SA OMEPRAZOLE ER 20 MG PO DAILY 12/17/21 12/17/21Strength: 20 MG CAP.DR 0809 08 GLIMEPIRIDE (AMARYL) 4 MG PO DAILY 12/17/21 12/17/21Strength: 4 MG TAB 0809 0812 INSULIN DETEMIR 50 UNITS SUBQ BID 12/17/21 12/17/21 (LEVEMIR FlexTouch (15mL)) 08811Strength: 100 UNIT/ML (3ML) PEN.INJCTR INSULIN LISPRO 0 UNITS SUBQ TID 12/17/21 12/17/21 (HumaLOG CARTRIDGE 0811 0812 (15mL))Strength: 100 UNIT/MLCARTRIDGE LIRAGLUTIDE 1.8 MG SUBQ DAILY 12/17/21 12/17/21 (VICTOZA (6mL)) 08811Strength: 0.6 MG/0.1 ML (18MG/3 ML) PEN.INJCTR metFORMIN (GLUCOPHAGE) 1,000 MG PO BID 12/17/21 12/17/21Strength: 1,000 MG TAB 0812 0812 ADALIMUMAB + SUPPLIES 40 MG SUBQ Q14D 12/17/21 12/17/21 (HUMIRA PREFILLED PEN) 08811Strength: 40 MG/0.8 ML KIT azaTHIOprine (IMURAN) 50 MG PO DAILY 12/17/21 12/17/21Strength: 50 MG TAB 0812 0812 Current Hospital Medications:Anti-Infective Agents Sig/Frankie Start time Last Medication Dose Route Stop Time Status Admin Cefazolin Sodium 3 GM PREOP ONCALL 12/18 499 CKD (KEFZOL OR ANCEF) IV 12/18 2358 Sodium Chloride 250 ML (SODIUM CHLORIDE 0.9%) Vancomycin HCl 1,750 MG PREOP ONCALL 12/18 499 DC (VANCOMYCIN HCL) IV 12/18 235 Sodium Chloride 500 ML (SODIUM CHLORIDE 0.9%) Vancomycin HCl 1,750 MG PREOP ONCALL 12/18 499 CKD (VANCOMYCIN HCL) IV 12/25 045 Sodium Chloride 500 ML (NS 0.9%) Autonomic Drugs Sig/Frankie Start time Last Medication Dose Route Stop Time Status Admin Atropine Sulfate 0.5 MG ASDIR PRN 12/17 1200 AC (ATROPINE SULFATE IV 12/18 1158 0.1MG/ML SYR) Blood Formation,Coagulation Sig/Frankie Start time Last Medication Dose Route Stop Time Status Admin Heparin Sodium/ 500 ML .STK-MED ONE 12/17 948 DC 12/17 Sodium Chloride IV 1030 (HEPARIN 1,000 UNITS/ NS 500ML) Heparin Sodium 0 .STK-MED ONE 12/18 939 DC 12/17 (HEPARIN SODIUM) .ROUTE 1030 Heparin Sodium/ 1,000 ML .STK-MED ONE 12/18 939 DC 12/17 Sodium Chloride IV 1030 (HEPARIN 2,000 UNITS/ NS 1,000mL) Heparin Sodium/ 500 ML .STK-MED ONE 12/18 939 DC 12/17 Sodium Chloride IV 1030 (HEPARIN 1,000 UNITS/ NS 500ML) Cardiovascular Drugs Sig/Frankie Start time Last Medication Dose Route Stop Time Status Admin Amlodipine Besylate 5 MG DAILY 12/18 899 AC (NORVASC) PO 01/17 859 Lisinopril 40 MG DAILY 12/18 899 AC (ZESTRIL) PO 01/16 1214 Losartan Potassium 100 MG DAILY 12/18 899 AC (COZAAR) PO 01/17 859 Metoprolol Tartrate 6.25 MG ONCE ONE 12/18 499 AC (LOPRESSOR) PO 12/18 050 Verapamil HCl 16.6 MG .Q24H ONE 10/06 0500 CKD (ISOPTIN) IV 12/19 0459 Heparin Sodium 1,660 UNIT (Porcine) (HEPARIN SODIUM) [...] HCl 0 .STK-MED ONE 12/18 939 DC 12/17 (LIDOCAINE HCL/PF) .ROUTE 1030 Nitroglycerin/ 250 ML .STK-MED ONE 12/18 939 DC 12/17 Dextrose IV 1030 (NITROGLYCERIN 50,000MCG/D5W 250ML) Verapamil HCl 0 .STK-MED ONE 12/18 939 DC 12/17 (ISOPTIN) IV 1030 Central Nervous System Agents Sig/Frankie Start time Last Medication Dose Route Stop Time Status Admin Fentanyl Citrate 0 .STK-MED ONE 12/17 1019 DC 12/17 (SUBLIMAZE) .ROUTE 1030 Midazolam HCl 0 .STK-MED ONE 12/17 1019 DC 12/17 (VERSED) .ROUTE 1030 Diagnostic Agents Sig/Frankie Start time Last Medication Dose Route Stop Time Status Admin Iopamidol 100 ML .STK-MED ONE 12/17 1034 DC 12/17 (ISOVUE-370 100ML) IV 12/17 103 1034 Electrolytic, Caloric, And Nataliia Sig/Frankie Start time Last Medication Dose Route Stop Time Status Admin Furosemide 10 MG DAILY 12/18 899 AC (LASIX) PO 01/17 08 Metolazone 10 MG DAILY 12/18 899 AC (ZAROXOLYN) PO 01/17 859 Sodium Chloride 1,000 ML .[id number] 12/17 1200 AC 12/17 (SODIUM CHLORIDE IV 12/17 1839 1404 0.9%) Sodium Chloride 500 ML ASDIR PRN 12/17 1200 AC (SODIUM CHLORIDE IV 12/18 1158 0.9%) Sodium Chloride 50 ML .STK-MED ONE 12/17 1052 DC (SODIUM CHLORIDE IV 0.9%) Gastrointestinal Drugs Sig/Frankie Start time Last Medication Dose Route Stop Time Status Admin Pantoprazole 40 MG DAILY@0600 12/18 0600 AC (PROTONIX) PO 01/17 0559 Allergies:Coded Allergies:ciprofloxacin (From CIPRO) (Severe, JOINT PAIN 12/12/21)morphine (Severe, RASH, SWELLING 12/12/21) Review of Systems Review of SystemsConstitutional:Denies: fever, malaise. Allergy/Immun:Denies: allergic reaction. Respiratory:Denies: SOB. Cardiovascular:Denies: chest pain, palpitations. Heme:Denies: bleeding. Neuro:Denies: dizziness, headache. Objective Physical ExamVS/I O:Last Documented: Result Date Time Pulse Ox 97 12/17 1329 B/P 135/63 12/17 1329 B/P Mean 86.6 12/17 1328 O2 Delivery Nasal cannula 12/17 1328 Temp 97.5 12/17 132 Pulse 45 12/17 132 Resp 16 12/17 132 O2 Flow Rate 2 12/17 1156 PATIENT WEIGHT: Weight (lb): 266Weight (oz): 12.15Weight (kg): 121.000 General appearance: alert, oriented, mental status normal, no respiratory distressHEENT: anictericCardiovascular: normal heart sounds, regular rate rhythmRespiratory: decreased breath sounds, aerating well, symmetric expansion, no distressAbdomen: soft, non-tender, no distentionExtremities: moves allNeuro/CAPTAIN FIRE PREVENTION BUREAU: alert, 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Psychiatry: normal judgment/insight ResultsFindings/Data:Laboratory Tests 12/17 12/17 1324 0757 Chemistry POC Glucose (70 - 110 MG/DL) 140 H 164 H Laboratory Tests 12/17 12/17 1106 1050 Coagulation Activated Coag Time (74 - 137 SEC) 265 H 335 H Diagnosis, Assessment PlanFree Text A P:This very pleasant 76-year-old female, from [facility], with past medical history of macular degeneration, obesity, obstructive sleep apnea (CPAP at home), former smoker, hypertension, hyperlipidemia, diabetes, Crohn's disease, chronic atrial fibrillation status post 3 ablations in the past (on Xarelto), pacemaker placement who had a recent admission to the hospital with heart failure symptoms. She has been admitted to the hospital today for elective heart cath. Coronary angiogram showed severe multivessel coronary artery disease suitable for percutaneous intervention. CV surgery called for evaluation. 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 She will benefit from off-pump ROBERTS to LAD and pericardiotomy. Dr. Romero explained to the patient the surgery, risks involved, STS score, benefits, complications and alternatives. She acknowledged understanding and is willing to proceedPreop work-up has been initiatedWe will tentatively schedule patient for surgery tomorrow. Thank you for the consultation. Patient was reviewed with Dr. Romero. René Romero 01/05/22 0923:Attestations Physician AttestationAgree w/findings plan:I have seen and examined Ms. Giles. I agree with the findings and plan as documented by IVANIA Fiore. Briefly, 76-year-old female with severe coronary artery disease. Patient will benefit from surgical revascularization. I had a long discussion with the patient, explained to her the procedure, risk involved, benefit, alternatives, STS risk score, and complications. Patient has agreed for surgery, I am making arrangement for Ms. Giles to have surgical revascularization in the near future. Thank you for the kind consult. at 1617 at 0934 RPT #:[id number] OF REPORTFJUlvoylepibaa6584-50-70O44:47:00G.[id number] for patient fwsnBHYKLHAGUEYMTO0985-47-94F86:17:45 [facility] 2021-12-17 13:34:00 [id number]+u 5DEfCczNDTS1 QdGUwvLlXigxdX9Xm9ZyfLuP1005-12-28P56:34:791207-5501 [place] [id number] PATIENT NAME: KIAH GILES ADMIT DATE: 12/17/21ACCOUNT NO: [id number] ROOM NO: [facility] [place] [facility] AGE: 76 REPORT TYPE: CARDIAC CATHETERIZATION REPORT SEX: F ADMITTING PHYSICIAN:Jeffry More MD ATTENDING PHYSICIAN:Jeffry More MD PROCEDURE DATE: 12/17/2021 PROCEDURE PERFORMED: 1. Selective coronary angiogram.2. Left heart catheterization.3. Right heart catheterization. INDICATIONS:1. Questionable constrictive pericarditis.2. Known significant LAD stenosis. ACCESS:1. Right femoral artery, 6-[place] Island[place] closed with 6-[place] Islander Angio-Seal.2. Right femoral vein 8-[place] closed with manual pressure. COMPLICATIONS: None. BLEEDING: Less than 20 mL. TOTAL SEDATION TIME: 45 minutes. Used fentanyl and Versed. DESCRIPTION OF PROCEDURE: After risks, benefits and alternatives were explained, the patient agreed to proceed and signed informed consent. The patient was brought into the cardiac catheterization laboratory, prepped and draped in sterile fashion. Then, I accessed the right femoral artery and right femoral vein using micropuncture kit and ultrasound guidance and fluoroscopy andplaced a 6-[place] sheath in the artery, 7-[place] in the vein and then took a 7-[place] catheter into the RA, RV, PA and wedge and took a waveform and measured pressure and then I took a 6-[place] pigtail catheter to the aortic root over a J wire through the femoral artery access and passed it into the LV. I did simultaneous hemodynamic recording of the LV and RV with a respiratory variation and then LV and RA with respiratory variation and then LV and wedge ofthe respiratory variation as well as LV and PA, and then removed the [place] catheter and then I took a 6-[place] XB3.5 guide in the aortic root and engaged the left main, took standard views. Initially, I decided to try to do FFR of the LAD; however, it appeared to be severely diseased. Findings were suggestiveof constrictive pericarditis. We decided to abort the procedure and consult thecardiac surgery for a definitive surgical treatment. I then removed the guide and the sheath was removed and placed a closure device with good hemostasis on both sides of the vein and the artery. FINDINGS:PATIENT NAME: KIAH GILES 1. Left main is normal.2. LAD proximal 70% and then diffuse 70% in the mid section and then focal 80% distally.3. The left circumflex, proximal 30% to 40% and distal 30%.4. RCA is large and dominant and had luminal irregularities.5. Right heart numbers were evaluated and the waveforms are between the LV and RV suggestive of constrictive pericarditis. CONCLUSION: 1. Severe LAD stenosis proximal to mid.2. 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 PLAN: We will admit. Discussed with CT surgery plan for open heart surgery forfurther management of constrictive pericarditis and ROBERTS to LAD. I discussed with the patient and family. Dictated By: Colt Vail MD Date Dictated: 12/17/2021 13:34:19Date Transcribed: 12/17/2021 15:01:56SR/Sapna #: [id number] ID: [id number] by Colt Vail MD On 01/14/2022 09:56:52 AM at 0956 PATIENT NAME: KIAH GILES [id number]:00G.[id number] for patient [id number]:57:41 [facility] 2021-12-12 12:29:00 [id number] [address] PATIENT NAME: KIAH GILES ADMIT DATE: ACCOUNT NO: [id number] ROOM NO: AGE: 76 REPORT TYPE: eELECTROCARDIOGRAM REPORT SEX: F ADMITTING PHYSICIAN: ATTENDING PHYSICIAN:Colt Vail MD Order:[id number] Reason : PRE OP Test Date/Time Stamp:Fri Sep 30 2022 12:29:59Blood Pressure : / mmHGVent. Rate : 070 BPM Atrial Rate : 069 BPM P-R Int : 000 ms QRS Dur : 180 ms QT Int : 482 ms P-R-T Axes : 000 136 008 degrees QTc Int : 520 ms Suspect unspecified pacemaker failureVentricular-paced rhythmAbnormal ECGNo previous ECGs availableConfirmed by ANNE MARIE CASH MD ([id number]) on 12/12/2021 5:24:35 PM Referred By: Colt Vail Confirmed by:ANNE MARIE CASH MD at 9753 PATIENT NAME: KIAH GILES .[id number] vailable for patient [id number]:25:11 HCACL
[2023-08-16 14:29] LABS: Absolute Basophils 0.1 K/uL (0-0.5); Absolute Eosinophils 0.2 K/uL (0-0.5); Absolute Lymphocytes (CBC) 0.7 K/uL (0.7-4.9); Basophils % 0.9 % (0-1.3); Eosinophils % 1.9 % (0-4.4); Hematocrit 41.3 % (36.0-45.0); Hemoglobin 13.5 g/dL (12.0-15.0); Lymphocytes % 7.3 % (15.3-44.8); MCH 31.9 pg (27.0-35.0); MCHC 32.7 g/dL (32.0-36.0); MCV 97.5 fL (80-100); MPV 8.8 fL (7.6-11.3); Monocytes % 9.6 % (3.3-12.3); Neutrophils % 80.3 % (41.7-73.7); Platelets 239 thou/uL (152-406); RBC Red Blood Cell Count 4.24 M/uL (3.86-4.86); Red Cell Distribution Width 14.8 % (12.1-15.2)
[2023-08-16 14:32] LABS: PT Prothrombin Time 14.5 SECONDS (9.5-12.5); Protime INR 1.33
[2023-08-16 14:46] LABS: INFLUENZA A NAA NEGATIVE (NEGATIVE); RESPIRATORY SYNCYTIAL VIR NAA NEGATIVE (NEGATIVE); SARS-COV-2 RT PCR NEGATIVE (NEGATIVE)
--- NOTE | 2023-08-16 14:53 | RAD REPORT ---
EXAM DESCRIPTION: RADChest Single View08/16/2023 1:47 pm CLINICAL HISTORY: SOB COMPARISON: Chest Single View dated 05/28/2022; Chest Single View dated 05/27/2022; Chest Single View dated 05/25/2022; Chest Single View dated 03/27/2022 TECHNIQUE: Portable AP view of the chest. FINDINGS: Central interstitial prominence, stable. Sequelae of CABG and aortic valve replacement. N o pneumothorax or effusion. Stable cardiomegaly. Mediastinal contours are unchanged. IMPRESSION: Stable central interstitial prominence, which may represent a degree of central congesti on or mild edema.
[2023-08-16 15:03] LABS: Albumin 2.9 g/dL (3.4-5.0); Albumin/Globulin Ratio 0.5 (1.1-1.8); Anion Gap 3.9 mEq/L (5.0-15.0); Bilirubin Direct 0.2 mg/dL (0-0.2); Bilirubin Indirect, Calculated 0.4 mg/dL (0.2-0.8); Bilirubin Total 0.6 mg/dL (0.2-1.0); Globulin 5.3 g/dL (2.3-3.5); Magnesium 1.7 mg/dL (1.6-2.4); Potassium 2.9 mEq/L (3.5-5.1); Protein, Total 8.2 g/dL (6.4-8.2); Troponin High Sensitivity 6.2 pg/mL (<58.9)
[2023-08-16] MEDS ORDERED: KCL 20 MEQ/100 mL IVPB 100 ML IV ONE (15:22)
[2023-08-16] MEDS ORDERED: HYDROCODONE/APAP 5/325 MG TAB ONE (15:53)
--- NOTE | 2023-08-16 17:17 | RAD REPORT ---
EXAM DESCRIPTION: CT - Chest For Pe Angio - 08/16/2023 3:25 pm CLINICAL HISTORY: DYSPNEA COMPARISON: Chest For Pe Angio dated 05/25/2022; Chest For Pe Angio dated 11/08/2021; CTANGIO CHEST da ru 10/12/2010 TECHNIQUE: Thin axial CT images of the chest were obtained following administration of 100 mL Isovue 370 IV contrast. Multiplanar reconstructions, and maximum intensity projection reconstructions were generated and reviewed. Exam utilizes a protocol for optimal evaluation of pulmonary arterial tree. All CT scans are performed using dose optimization technique as appropriate and may include automated exposure control or mA/KV adjustment according to patient size. FINDINGS: Pulmonary arteries are normal. No emboli or other suspicious finding. No acute or signific ant aorta findings. Mild central interstitial prominence. No mass or other suspicious infiltrate in the lung parenchyma. Dependent platelike atelectatic changes. No pleural thickening or pleural effusion. No pneumothorax. . Mild cardio. Sequelae of CABG and mitral valve replacement. No abnormal mediastinal or hilar masses or lymphadenopathy seen. No chest wall mass or abnormal axill iary lymphadenopathy. IMPRESSION: No evidence of acute central pulmonary emboli. Central interstitial prominence, which may reflect mild central congestion.
[2023-08-16] MEDS ORDERED: FUROSEMIDE 20 MG/ 2ML VIAL ONE (17:32)
[2023-08-16] MEDS ORDERED: FUROSEMIDE 40 MG/4 ML VIAL ONE (17:32)
--- NOTE | 2023-08-16 17:40 | ER ---
Nurse's Notes [facility] Name: Kiah Taylor Age: 77 yrs Sex: Female : 1945 Arrival Date: 08/16/2023 Time: 12:32 Bed 5 Private MD: Diagnosis: Acute on chronic combined systolic (congestive) and diastolic (congestive) heart failure;Acute pulmonary edema;Acute respiratory failure with hypoxia Presentation: 08/15 12:46 Acuity: ANNIE 2 aa5 12:46 Coronavirus screen: shortness of breath. Ebola Screen: Patient denies travel to an [facility] Ebola-affected area in the 21 days before illness onset. Initial Sepsis Screen: Does the patient meet any 2 criteria? No. Patient's initial sepsis screen is negative. Does the patient have a suspected source of infection? No. Patient's initial sepsis screen is negative. Risk Assessment: Do you want to hurt yourself or someone else? Patient reports no desire to harm self or others. Onset of symptoms was August 16, 2023. 12:46 Method Of Arrival: Wheelchair aa 12:46 Chief complaint: Patient states: SOB, reports being sent here by Dr. Yared villela5 (cardiology) for low O2 sat 81%. Historical: - Allergies: 12:45 Ciprofloxacin; aa5 12:45 Morphine; aa5 - PMHx: 12:45 AFIB; Crohn's Disease; diabetes mellitus; Hypertensive disorder; aa5 - PSHx: 12:45 heart SX; pacemaker; aa5 - Immunization history:: Adult Immunizations unknown. - Infectious Disease History:: Denies. - Social history:: Smoking status: Patient denies any tobacco usage or history of. Screenin:45 [facility] ED Fall Risk Assessment (Adult) History of falling in the last 3 months, ko1 including since admission No falls in past 3 months (0 pts) Confusion or Disorientation No (0 pts) Intoxicated or Sedated No (0 pts) Impaired Gait Yes (1 pt) Mobility Assist Device Used Yes (1 pt) Altered Elimination No (0 pt) Score/Fall Risk Level 0 - 2 = Low Risk Oriented to surroundings, Maintained a safe environment, Educated pt \\T\\ family on fall prevention, incl call for assistance when getting out of bed, Assessed \\T\\ reinforced patient's understanding of fall precautions, Provided non-skid footwear, Hourly rounding (assess needs \\T\\ fall precautionary measures) done, Used ambulatory aids as needed (educated on \\T\\ assisted with), Used gait belt as appropriate. Abuse screen: Denies threats or abuse. Denies injuries from another. Nutritional screening: No deficits noted. Tuberculosis screening: No symptoms or risk factors identified. Assessment: 13:45 General: Appears in no apparent distress. uncomfortable, obese, Behavior is calm, ko1 cooperative, appropriate for age. Pain: Denies pain. Neuro: No deficits noted. Cardiovascular: No deficits noted. Respiratory: Reports shortness of breath at rest. GI: No deficits noted. : No deficits noted. EENT: No deficits noted. Derm: No deficits noted. Musculoskeletal: No deficits noted. 14:55 Reassessment: Patient and/or family updated on plan of care and expected duration. Pain rs5 level reassessed. Patient is alert, oriented x 3, equal unlabored respirations, skin warm/dry/pink. Patient states feeling better. 15:00 Pain: Complains of pain in right index finger Pain currently is 9 out of 10 on a pain rs5 scale. Quality of pain is described as aching, Is continuous. 15:01 Reassessment: redness and swelling noted to right index finger, pt states "It has been rs5 like this for a while", provider notified. 16:10 Reassessment: Patient and/or family updated on plan of care and expected duration. Pain rs5 level reassessed. Patient is alert, oriented x 3, equal unlabored respirations, skin warm/dry/pink. Patient denies pain at this time. Patient states feeling better. 17:22 Reassessment: No changes from previously documented assessment. rs5 18:09 Reassessment: Patient and/or family updated on plan of care and expected duration. Pain rs5 level reassessed. Patient is alert, oriented x 3, equal unlabored respirations, skin warm/dry/pink. 19:26 Reassessment: Patient appears in no apparent distress at this time. No changes from vc1 previously documented assessment. Patient and/or family updated on plan of care and expected duration. Pain level reassessed. Patient is alert, oriented x 3, equal unlabored respirations, skin warm/dry/pink. 20:35 Reassessment: faxed report to 4th floor; fax comfirmed. km8 21:30 Reassessment: Patient appears in no apparent distress at this time. No changes from km8 previously documented assessment. Patient and/or family updated on plan of care and expected duration. Pain level reassessed. Patient is alert, oriented x 3, equal unlabored respirations, skin warm/dry/pink. Vital Signs: 12:42 Resp 22; Pulse Ox 88% on R/A; rs5 12:45 BP 134 / 69; Pulse 70; Resp 16; Pulse Ox 97% on 4 lpm NC; rs5 12:46 BP 114 / 48; Pulse 75; Resp 18 S; Temp 98.5(O); Pulse Ox 85% on R/A; Weight 107.95 kg aa5 (R); Height 5 ft. 4 in. (R); 15:09 BP 133 / 72; Pulse 73; Resp 18; Pulse Ox 96% on 4 lpm NC; rs5 16:42 BP 154 / 73; Pulse 78; Resp 18; Pulse Ox 94% on 3 lpm NC; ko1 18:32 BP 127 / 48; Pulse 76; Resp 16; Pulse Ox 96% ; ko1 19:26 BP 131 / 63; Pulse 73; Resp 18; Pulse Ox 93% on 3 lpm NC; vc1 12:46 Body Mass Index 40.85 (107.95 kg, 162.56 cm) aa5 ED Course: 12:37 Patient arrived in ED. mg5 12:38 Lacy Burciaga MD is Attending Physician. gb1 12:45 Arm band placed on. aa5 12:47 Triage completed. aa5 13:10 Donald Araya, LAURA is Primary Nurse. rs5 13:40 X-ray completed. Portable x-ray completed in exam room. Patient tolerated procedure mh1 well. 13:45 Patient has correct armband on for positive identification. Allergy band placed. Fall ko1 risk band placed. Placed in gown. Bed in low position. Call light in reach. Side rails up X2. Provided Education on: call light. Client placed on continuous cardiac and pulse oximetry monitoring. NIBP monitoring applied. school lunch monitor on. Door closed. Noise minimized. Lights dimmed. Warm blanket given. Pillow given. Assisted to bedside commode. 13:49 XRAY Chest (1 view) In Process Unspecified. EDMS 14:06 COVID-19/FLU A+B/RSV Sent. ko1 14:22 Basic Metabolic Panel Sent. bc6 14:22 CBC with Diff Sent. bc6 14:22 D-Dimer Sent. bc6 14:22 LFT's Sent. bc6 14:22 Magnesium Sent. bc6 14:22 NT PRO-BNP Sent. bc6 14:22 PT-INR Sent. bc6 14:22 Troponin HS Sent. bc6 14:22 Initial lab(s) drawn, by me, sent to lab. Inserted saline lock: 24 gauge in left hand, bc6 using aseptic technique. Blood collected. 14:26 No provider procedures requiring assistance completed. ko1 14:27 COVID-19/FLU A+B/RSV Sent. ko1 14:27 Basic Metabolic Panel Sent. ko1 14:27 CBC with Diff Sent. ko1 14:27 D-Dimer Sent. ko1 14:27 LFT's Sent. ko1 14:27 Magnesium Sent. ko1 14:27 NT PRO-BNP Sent. ko1 14:27 PT-INR Sent. ko1 14:27 Troponin HS Sent. ko1 14:36 Assisted to bedside commode. ko1 15:27 CT Chest For PE Angio In Process Unspecified. EDMS 16:41 Diet tray given. PO fluids given. ko1 17:38 Azul Fuchs MD is Hospitalizing Provider. gb1 17:45 Assisted to bedside commode. ko1 21:34 Patient admitted, IV remains in place. km8 Administered Medications: 15:22 Drug: Potassium Chloride IV 20 mEq IV at bolus once; administer over 1-2 hours Route: rs5 IV; Rate: bolus; Site: right forearm; 16:00 Follow up: Response: No adverse reaction rs5 19:00 Follow up: IV Status: Completed infusion; IV Intake: 100ml km8 15:55 Drug: HYDROcodone-acetaminophen PO 5 mg-325 mg 1 tabs PO once Route: PO; rs5 17:04 Follow up: Response: No adverse reaction; Pain is decreased rs5 17:45 Drug: Furosemide IVP 60 mg IVP once; give over 2 minutes Route: IVP; Site: left wrist; rs5 18:09 Follow up: Response: No adverse reaction rs5 Medication: 13:45 VIS not applicable for this client. ko1 Intake: 19:00 IV: 100ml; Total: 100ml. km8 Outcome: 17:39 Decision to Hospitalize by Provider. gb1 21:33 Admitted to Med/surg accompanied by nurse, via wheelchair, room 408, with oxygen, with km8 chart, 21:33 Condition: stable 21:33 Instructed on the need for admit, Demonstrated understanding of instructions, 21:34 Patient left the ED. km8 Signatures: Dispatcher [employer] EDMS Chloe Sinha 1 Joyce Worley, RN RN aa5 Alaina Wall RN RN vc1 Jenelle Mclean, LAURA RN ko1 Donald Araya, RN RN rs5 Taylor Magallon [facility] Rere Youngblood 5 Lacy Burciaga MD MD gb1 Rhonda Brantley, LAURA RN km8 Corrections: (The following items were deleted from the chart) 12:57 12:46 Chief complaint: Patient states: SOB, reports being sent here by Dr. Yared lopez (cardiology) for low O2 sat 88% aa5 12:57 12:46 Chief complaint: Patient states: SOB, reports being sent here by Dr. Yared vizcaino (cardiology) for low O2 sat 81% ko1 15:09 13:45 BP 134 / 69; Pulse 70bpm; Resp 16bpm; Pulse Ox 97%; ko1 rs5 15:09 13:45 BP 134 / 69; Pulse 70bpm; Resp 16bpm; Pulse Ox 97% 4 lpm Nasal Cannula; rs5 rs5
--- NOTE | 2023-08-16 17:40 | EDPHYS ---
Physician Documentation [facility] Name: Kiah Taylor Age: 77 yrs Sex: Female : 1945 Arrival Date: 08/16/2023 Time: 12:32 Bed 5 Private MD: ED Physician Lacy Burciaga HPI: 08/15 13:52 This 77 yrs old Female presents to ER via Wheelchair with complaints of Sent By audrey Rowland-Oxygen Issue. 13:52 77-year-old female here with her daughter send I Dr. Vail's office the lead systems analyst audrey of record for low oxygen saturation 85% on room air. Patient's daughter brought her to the emergency department after going [place] a [place] her granddaughters wedding she has been noncompliant with her Lasix due to the fact that she did not want to have to give up and going to the restroom frequently during events. She also states she has a left finger pain and it has been red and painful for 2 to 3 days. Patient states that she gets more winded when she gets up and walks around but denies any chest pain. She denies any fevers chills, nausea vomiting or diarrhea. Patient is also been noncompliant with her insulin regimen as well. She does not take her insulin today but this morning as her blood sugar was 80.. Historical: - Allergies: 12:45 Ciprofloxacin; aa5 12:45 Morphine; aa5 - PMHx: 12:45 AFIB; Crohn's Disease; diabetes mellitus; Hypertensive disorder; aa5 - PSHx: 12:45 heart SX; pacemaker; aa5 - Immunization history:: Adult Immunizations unknown. - Infectious Disease History:: Denies. - Social history:: Smoking status: Patient denies any tobacco usage or history of. Exam: 13:52 Constitutional: This is a well developed, well nourished patient who is awake, alert, gb1 and in no acute distress. Head/Face: Normocephalic, atraumatic. Eyes: Pupils equal round and reactive to light, extra-ocular motions intact. Lids and lashes normal. Conjunctiva and sclera are non-icteric and not injected. Cornea within normal limits. Periorbital areas with no swelling, redness, or edema. ENT: Nares patent. No nasal discharge, no septal abnormalities noted. Tympanic membranes are normal and external auditory canals are clear. Oropharynx with no redness, swelling, or masses, exudates, or evidence of obstruction, uvula midline. Mucous membranes moist. Neck: Trachea midline, no thyromegaly or masses palpated, and no cervical lymphadenopathy. Supple, full range of motion without nuchal rigidity, or vertebral point tenderness. No Meningismus. Chest/axilla: Normal chest wall appearance and motion. Nontender with no deformity. No lesions are appreciated. Cardiovascular: Regular rate and rhythm with a normal S1 and S2. No gallops, murmurs, or rubs. Normal PMI, no JVD. No pulse deficits. Respiratory: Lungs have equal breath sounds bilaterally, clear to auscultation and percussion. No rales, rhonchi or wheezes noted. No increased work of breathing, no retractions or nasal flaring. Abdomen/GI: Soft, non-tender, with normal bowel sounds. No distension or tympany. No guarding or rebound. No evidence of tenderness throughout. Back: No spinal tenderness. No costovertebral tenderness. Full range of motion. Skin: Warm, dry with normal turgor. Patient has a left second digit distal phalanx erythema that is very tender. She has range of motion within normal limits but is limited secondary to pain. MS/ Extremity: Pulses equal, no cyanosis. Neurovascular intact. Full, normal range of motion. Neuro: Awake and alert, GCS 15, oriented to person, place, time, and situation. Cranial nerves II-XII grossly intact. Motor strength 5/5 in all extremities. Sensory grossly intact. Cerebellar exam normal. Normal gait. 17:41 Respiratory: Breath sounds: rales, that are mild, are scattered, gb1 Vital Signs: 12:42 Resp 22; Pulse Ox 88% on R/A; rs5 12:45 BP 134 / 69; Pulse 70; Resp 16; Pulse Ox 97% on 4 lpm NC; rs5 12:46 BP 114 / 48; Pulse 75; Resp 18 S; Temp 98.5(O); Pulse Ox 85% on R/A; Weight 107.95 kg aa5 (R); Height 5 ft. 4 in. (R); 15:09 BP 133 / 72; Pulse 73; Resp 18; Pulse Ox 96% on 4 lpm NC; rs5 16:42 BP 154 / 73; Pulse 78; Resp 18; Pulse Ox 94% on 3 lpm NC; ko1 18:32 BP 127 / 48; Pulse 76; Resp 16; Pulse Ox 96% ; ko1 19:26 BP 131 / 63; Pulse 73; Resp 18; Pulse Ox 93% on 3 lpm NC; vc1 12:46 Body Mass Index 40.85 (107.95 kg, 162.56 cm) aa5 MDM: 12:43 Patient medically screened. gb1 13:52 Differential Diagnosis Congestive heart failure, decompensated with pulmonary edema, gb1 PE, focal pneumonia, DKA, uncontrolled diabetes with hyperglycemia.. 17:39 Data reviewed: vital signs, nurses notes, EMS record, lab test result(s), cardiac gb1 enzymes, CBC, electrolytes, EKG. ED course: 77-year-old female with history of atrial fibrillation, Crohn's disease, diabetes mellitus and hypertensive disorder is here with acute on chronic CHF exacerbation with pulmonary edema. CT angiogram of the chest shows no PE but just mild pulmonary vascular congestion. Patient is hypoxic and requiring supplemental oxygen to keep saturations above 92%. Her EKG shows a wide QRS with a right bundle shun block with nonspecific ST-T wave changes that are unchanged from previous. Her QTc is also prolonged at 496. EKG was completed at 1304 on August 16, 2023. I discussed her case with Dr. Fuchs her primary care record and he will admit her inpatient to the telemetry unit.. 08/15 12:44 Order name: Basic Metabolic Panel; Complete Time: 15:07 gb08/15 12:44 Order name: CBC with Diff; Complete Time: 14:54 gb08/15 12:44 Order name: D-Dimer; Complete Time: 14:54 gb1 08/15 12:44 Order name: LFT's; Complete Time: 15:07 gb08/15 12:44 Order name: Magnesium; Complete Time: 15:07 gb08/15 12:44 Order name: NT PRO-BNP; Complete Time: 15:07 gb08/15 12:44 Order name: PT-INR; Complete Time: 14:54 gb08/15 12:44 Order name: Troponin HS; Complete Time: 15:07 gb08/15 12:53 Order name: COVID-19/FLU A+B/RSV; Complete Time: 14:54 gb1 08/15 16:50 Order name: Glucose, Ancillary Testing; Complete Time: 16:54 EDMS 08/15 12:44 Order name: XRAY Chest (1 view); Complete Time: 14:55 gb1 08/15 14:56 Order name: CT Chest For PE Angio; Complete Time: 17:25 gb1 08/15 12:44 Order name: Cardiac monitoring; Complete Time: 13:10 gb1 08/15 12:44 Order name: EKG - Nurse/Tech; Complete Time: 13:10 gb1 08/15 12:44 Order name: IV Saline Lock; Complete Time: 13:10 gb1 08/15 12:44 Order name: Labs collected and sent; Complete Time: 13:10 gb1 08/15 12:44 Order name: O2 Per Protocol; Complete Time: 13:10 gb1 08/15 12:44 Order name: O2 Sat Monitoring; Complete Time: 13:10 gb1 08/15 12:54 Order name: Oxygen; Complete Time: 13:10 gb1 Administered Medications: 15:22 Drug: Potassium Chloride IV 20 mEq IV at bolus once; administer over 1-2 hours Route: rs5 IV; Rate: bolus; Site: right forearm; 16:00 Follow up: Response: No adverse reaction rs5 19:00 Follow up: IV Status: Completed infusion; IV Intake: 100ml km8 15:55 Drug: HYDROcodone-acetaminophen PO 5 mg-325 mg 1 tabs PO once Route: PO; rs5 17:04 Follow up: Response: No adverse reaction; Pain is decreased rs5 17:45 Drug: Furosemide IVP 60 mg IVP once; give over 2 minutes Route: IVP; Site: left wrist; rs5 18:09 Follow up: Response: No adverse reaction rs5 Disposition Summary: 08/16/23 17:39 Hospitalization Ordered Notes: Hospitalization Status: Inpatient Admission gb1 Provider: Azul Fuchs Location: Telemetry/MedSurg (Inpatient) gb1 Condition: Fair gb1 Problem: an acute exacerbation gb1 Symptoms: have worsened gb1 Bed/Room Type: Standard [facility] Room Assignment: 408(08/16/23 20:01) rv1 Diagnosis - Acute on chronic combined systolic (congestive) and diastolic (congestive) heart gb1 failure - Acute pulmonary edema gb1 - Acute respiratory failure with hypoxia gb1 Forms: - Medication Reconciliation Form gb1 - SBAR form gb1 - Leadership Thank You Letter gb1 Signatures: Dispatcher [employer] EDMS Joyce Worley, RN RN aa5 Dagmar Odom rv1 Donald Araya RN RN rs5 Lacy Burciaga MD MD gb1 Rhonda Brantley RN km8 Corrections: (The following items were deleted from the chart) 12:44 12:44 BASIC METABOLIC PANEL+C.LAB.BRZ ordered. EDMS EDMS 12:44 12:44 CBC+H.LAB.BRZ ordered. EDMS EDMS 12:44 12:44 D-DIMER+COAG.LAB.BRZ ordered. EDMS EDMS 12:44 12:44 HEPATIC FUNCTION+C.LAB.BRZ ordered. EDMS EDMS 12:44 12:44 MAGNESIUM+C.LAB.BRZ ordered. EDMS EDMS 12:44 12:44 PROBNP+C.LAB.BRZ ordered. EDMS EDMS 12:44 12:44 PROTIME (+INR)+COAG.LAB.BRZ ordered. EDMS EDMS 12:44 12:44 Troponin High Sensitivity+C.LAB.BRZ ordered. EDMS EDMS 12:45 12:44 Chest Single View+RAD.RAD.BRZ ordered. EDMS EDMS 20:01 17:39 gb1 rv1
[2023-08-16] MEDS: AMOX/K CLAV 875 MG TAB ONE (21:57)
[2023-08-16] MEDS: ATORVASTATIN 40 MG TAB PO SCH (22:06)
[2023-08-16] MEDS: POTASSIUM CL SA 10 MEQ TAB PO ONE (22:06)
[2023-08-16] MEDS: AMOX/K CLAV 875 MG TAB PO SCH (22:52)
[2023-08-16 23:33] LABS: Specific Gravity 1.021 (1.005-1.030); Sqamous Epithelial <5 /HPF (None Seen); Urine Bacteria None Seen /HPF (<20); Urine Bilirubin NEGATIVE (Negative); Urine Blood Negative (Negative); Urine Clarity Clear (Clear); Urine Color Colorless (Yellow); Urine Culture Reflex Order REFLEXED; Urine Glucose NEGATIVE (Negative); Urine Ketones NEGATIVE (Negative); Urine Microscopic Reflex YN ORDER UMIC; Urine Nitrite NEGATIVE (Negative); Urine Protein NEGATIVE (Negative); Urine RBC <5 /HPF (None Seen); Urine Urobilinogen Normal (Normal)
--- NOTE | 2023-08-17 04:26 | HP ---
Date of Admission: 08/16/2023 Chief Complaint: Shortness of breath and left finger pain. History Of Present Illness: This is a 77-year-old very pleasant female patient who was out of town for almost a week or so, and during that time, instead of taking her Lasix 2 times a day, she reports that she was taking her Lasix only once a day. She came back home about a week ago and in last 1 week, she is having increasing problem with shortness of breath with daily activity and shortness of breath at nighttime, and she feels better as far as breathing is concerned when she is sitting upright instead of lying down in the bed. In last day or two days, she also has noted pain, redness, and swelling of left hand index finger. There was no history of any injury. The patient went to see her pipe machine operator, Dr. Vail, as she had appointment to see him today and subsequently she had appointment to see me today afternoon to talk about all these problems, but after she saw Dr. Vail, she was directed by Dr. Vail to come to emergency room for further evaluation because of her shortness of breath and hypoxia. Her oxygen saturation at his office was around 85% on room air. The patient reports that in last 1 week, her oxygen saturation at home has gone as low as 71% when she was waking up in the morning from her sleep. Denies any fever, cough, congestion. After the patient was evaluated in the ER, she was admitted to the hospital. I saw her in the emergency room, and her daughter was with her at bedside. Allergies: TO MORPHINE, DETAILS UNKNOWN; AND CIPRO, CAUSING JOINT PAIN. Medications: Amlodipine 5 mg daily; aspirin 81 mg daily; atorvastatin 40 mg daily at bedtime; Slow-Mag 1 tablet 3 times a day; clopidogrel 75 mg daily; folic acid 1 mg daily; furosemide 80 mg 2 times a day; Levemir 50 units 2 times a day; Humalog insulin 10 units 3 times a day; metolazone 2.5 mg every other day; metoprolol 25 mg 2 times a day; omeprazole 20 mg daily; potassium chloride 20 mEq takes 2 tablets 2 times a day; Mounjaro 7.5 mg once a week, but lately she has not taken it because she is not able to get this medication due to supply issue; losartan 25 mg daily. Review of Systems: Respiratory: As mentioned above. Cardiovascular: As mentioned above. Musculoskeletal: As mentioned above. All other systems reviewed and negative. Past Medical History: Significant for type 2 diabetes mellitus, hypothyroidism, hypokalemia, hypertension, lymphedema of legs, hypomagnesemia, hyperlipidemia, chronic atrial fibrillation, thrombocytopenia, leukocytopenia, mixed urinary incontinence, chronic diastolic heart failure, chronic respiratory failure with hypoxia, Crohn disease, diverticulosis, osteoarthritis at multiple sites, insomnia. Past Surgical History: Cataract surgery in 2020, pacemaker placement with ablation and mitral valve replacement surgery, December 19, 2021; coronary artery bypass surgery, December 19, 2021; pericardiectomy, December 19, 2021; left atrial appendage occlusion, December 19, 2021. In the past, she had cholecystectomy, partial resection of colon, hysterectomy, removal of basal cell carcinoma and squamous cell carcinoma. Family History: Father , had aortic aneurysm and coronary artery disease. Mother , had colon cancer and hypertension. Sister with breast cancer. Social History: Prior history of smoking, not at present time. Use of alcohol rarely. Physical Examination: Vital Signs: Height 64 inches, weight 238 pounds, temperature 98.5, pulse 75, respiratory rate 18, blood pressure 114/48, oxygen saturation 85%. General: Awake, alert, oriented, not in distress. HEENT: Head atraumatic, normocephalic. Conjunctivae nonerythematous. Sclerae white. Mouth, no thrush or edema noted. Ears/Nose, no mass, lesion, discharge noted. Neck: Supple. No JVD, lymph nodes, bruit, thyromegaly noted. Lungs: Diminished air entry with some rales in lower lung lema on both sides. Not using any accessory muscles of respiration. Heart: Normal heart sounds, no murmur or gallop. Abdomen: Soft, bowel sounds normal. No guarding, rigidity, tenderness, mass, hepatosplenomegaly, distention, or bruit noted. Extremities: Bilateral grade 1 pedal edema involving lower one-third of both lower extremities. Left hand index finger has mild swelling with redness and tenderness of the distal one-third of the finger. No open wound. Skin: No rash, ulcer, cellulitis. Lymphatics: No lymph node enlargement in neck, supraclavicular, infraclavicular region. Neuro: No focal neurological deficit. Chest: Unremarkable. External Genitalia: Deferred. Rectal: Deferred. Laboratory Data: Sodium 137, potassium 2.9, chloride 97, bicarb 39, BUN 28, creatinine 0.75, glucose 92. White count 9.9, hemoglobin 13.5, platelets 239. D-dimer 900, AST 12, ALT 18, alkaline phosphatase 90, total bilirubin 0.6. Albumin 2.9, magnesium 1.7. ProBNP 1448. COVID-19 test negative. Influenza A and B negative. Troponin 6.2. RSV test negative. Chest x-ray: Bilateral interstitial prominent lung markings. CT scan of the chest, per PE protocol, was negative for pulmonary embolism, but it did show some changes of pulmonary edema. Impression: 1. Congestive heart failure, chronic, diastolic, with acute exacerbation. 2. Acute pulmonary edema. 3. Hypokalemia. 4. Hypomagnesemia. 5. Coronary artery disease. 6. Chronic atrial fibrillation. 7. Hypertension. 8. Hyperlipidemia. 9. Type 2 diabetes mellitus. 10. Hypothyroidism. 11. Osteoarthritis, multiple sites. 12. Chronic respiratory failure with hypoxia. 13. Cellulitis, left hand index finger. Plan: 1. We will go ahead and admit the patient to hospital for further evaluation and management of this problem. The patient is appropriate for inpatient and is expected to spend 2 midnights in hospital. The patient will be admitted to telemetry. 2. The patient is appropriate for inpatient and is expected to spend 2 midnights in hospital. We will consult Cardiology. We will go ahead and continue IV Lasix 40 mg 2 times a day. Monitor renal function, electrolytes. Replace potassium per electrolyte replacement protocol. Monitor intake, output, daily weight. For cellulitis, we will go ahead and start her on empiric antibiotics per order. Diabetes will be managed with sliding scale insulin per order and no need for any further intervention. For hypomagnesemia, we will continue her magnesium replacement per order. For hyperlipidemia, we will continue her statin therapy. We will continue her aspirin and Plavix the way she takes it at home. Details and plan of treatment discussed with the patient. Total time spent was 90 minutes, including communication with pipe machine operator, review of office record, review of current hospital emergency room record and performing current evaluation and management for this admission. I will see her tomorrow for followup. JESSICA/MODL Voice ID: [id number] MTDD
[2023-08-17 04:38] LABS: Absolute Eosinophils 0.2 K/uL (0-0.5); Absolute Lymphocytes (CBC) 0.8 K/uL (0.7-4.9); Absolute Monocytes 0.8 K/uL (0.1-1.3); Absolute Neutrophil 5.5 K/uL (1.8-8.0); Basophils % 0.6 % (0-1.3); Eosinophils % 2.6 % (0-4.4); Hematocrit 38.4 % (36.0-45.0); Hemoglobin 13.3 g/dL (12.0-15.0); Lymphocytes % 10.5 % (15.3-44.8); MCH 35.4 pg (27.0-35.0); MCHC 34.6 g/dL (32.0-36.0); MCV 102.5 fL (80-100); MPV 9.2 fL (7.6-11.3); Monocytes % 11.4 % (3.3-12.3); Neutrophils % 74.9 % (41.7-73.7); Nucleated Red Blood Cells % 0.1 % (0-0); Platelets 210 thou/uL (152-406); RBC Red Blood Cell Count 3.74 M/uL (3.86-4.86); Red Cell Distribution Width 14.6 % (12.1-15.2)
[2023-08-17 04:54] LABS: Anion Gap 7.4 mEq/L (5.0-15.0); Potassium 3.4 mEq/L (3.5-5.1)
[2023-08-17] MEDS: Magnesium Sulfate 2gm IVPB 2 G/50 ML BAG IV ONE (05:33)
[2023-08-17] MEDS: METOPROLOL TAR 25 MG TAB PO SCH (05:33)
[2023-08-17] MEDS: POTASSIUM CL SA 10 MEQ TAB PO ONE (05:33)
[2023-08-17] MEDS: PANTOPRAZOLE 40MG TABLET PO SCH (05:33)
[2023-08-17] MEDS: INSULIN REGULAR (HUMAN) 100 UNIT/ML SQ SCH (07:30)
[2023-08-17] MEDS: FUROSEMIDE 40 MG/4 ML VIAL IV SCH (08:39)
[2023-08-17] MEDS: ASPIRIN 81 MG CHEWABLE TABLET PO SCH (08:39)
[2023-08-17] MEDS: ENOXAPARIN 40 MG/0.4 ML SQ SCH (08:39)
[2023-08-17] MEDS: FOLIC ACID 1 MG TABLET PO SCH (08:40)
[2023-08-17] MEDS: CLOPIDOGREL 75 MG TABLET PO SCH (08:40)
[2023-08-17] MEDS: LOSARTAN POTASSIUM 50 MG TABLET PO SCH (08:40)
[2023-08-17] MEDS: AMLODIPINE 5 MG TAB PO SCH (08:40)
--- NOTE | 2023-08-17 11:56 | P.CNS ---
Date of Consult: 08/17/23 Chief Complaint: SOB/Lower extremity swelling History of Present Illness: Patient with PMH of diastolic heart failure, atrial fibrillation and CAD presented with worsening SOB and lower extremities swelling that has been going on for one week, denies chest pain, no palpitations, no syncope. Allergies ciprofloxacin [From Cipro] Allergy (Mild, Verified 05/26/22 06:27) Joint Pain morphine Allergy (Verified 05/26/22 06:27) Itching/Hives/Rash Home Medications: Insulin Detemir [Levemir] 50 units SQ BID 01/10/12 Omeprazole [Prilosec] 20 mg PO DAILY 01/06/13 Furosemide 80 mg PO BID 12/09/20 Insulin Lispro [Humalog*] See Protocol SQ TIDWM 12/09/20 Potassium Chloride 20 meq PO TID 12/09/20 Adalimumab [Humira] 40 mg SQ Q14D 03/25/22 Aspirin [Adult Low Dose Aspirin EC] 81 mg PO DAILY 03/25/22 Atorvastatin Calcium [Lipitor] 40 mg PO BEDTIME 03/25/22 Folic Acid 1 mg PO DAILY 03/25/22 Metoprolol Tartrate 25 mg PO BID 03/25/22 metOLazone [Zaroxolyn] 2.5 mg PO DIRECTED 03/25/22 Amlodipine [Norvasc] 5 mg PO DAILY 08/16/23 Losartan Potassium 25 mg PO DAILY 08/16/23 - Past Medical/Surgical History Diabetic: Yes -: IDDM2 -: CHROHN -: HTN -: AFIB -: LYMPHEDEMA -: HLD -: ja -: Pacemaker -: hysterectomy -: choly -: colon removed (5in. of sm and lg. intestine) -: pacemaker -: mitral valve replacement and cardiac bypass Dec 2021 - Social History Smoking Status: Former smoker Alcohol use: No CD- Drugs: No Caffeine use: No Place of Residence: Home Review of Systems 10-point ROS is otherwise unremarkable Physical Examination Temp Pulse Resp BP Pulse Ox 97.1 F 71 21 H 144/67 H 95 08/17/23 08:00 08/17/23 08:40 08/17/23 08:00 08/17/23 08:40 08/17/23 08:00 General: Alert, In no apparent distress HEENT: Atraumatic, PERRLA, Mucous membr. moist/pink, EOMI, Sclerae nonicteric Neck: Supple, 2+ carotid pulse no bruit, No LAD, Without JVD or thyroid abnormality Respiratory: Normal air movement, Crackles/rales Cardiovascular: Regular rate/rhythm, Normal S1 S2, Edema Gastrointestinal: Normal bowel sounds, No tenderness Musculoskeletal: No tenderness Integumentary: No rashes Neurological: Normal gait, Normal speech, Normal tone, Normal affect Lymphatics: No axilla or inguinal lymphadenopathy Laboratory Data (last 24 hrs) 08/16/23 08/16/23 08/16/23 14:20 14:20 14:20 WBC 9.90 Hgb 13.5 Hct 41.3 Plt Count 239 PT 14.5 H INR 1.33 Sodium 137 Potassium 2.9 L BUN 28 H Creatinine 0.75 Glucose 92 Magnesium 1.7 Total Bilirubin 0.6 AST 12 L ALT 18 Alkaline Phosphatase 90 - Problems (1) Acute on chronic diastolic (congestive) heart failure Current Visit: Yes Status: Acute Plan: Patient used to be on Lasix 80 mg po BID and Metolazone 2.5 mg every other day Switch Lasix to 40 mg IV q 8 hours. continue to monitor imput and output and electrolytes Continue Losartan 25 mg daily Stop Norvasc Start Spirnolactone 25 mg daily (2) Atrial fibrillation Current Visit: Yes Status: Acute Plan: currently in sinus rhythm Continue Lopressor 25 mg po BID (3) CAD (coronary artery disease) Current Visit: Yes Status: Acute Plan: stable, negative troponin Continue ASA 81 mg daily
[2023-08-17 12:19] LABS: Magnesium 1.9 mg/dL (1.6-2.4); Potassium 3.8 mEq/L (3.5-5.1)
--- NOTE | 2023-08-17 13:22 | EKG ---
Test Date: 2023-08-16 Test Time: 13:03:00 Seafood Preparer: ARNOL MEASUREMENT RESULTS: Intervals: Rate: 71 CT: QRSD: 150 QT: 458 QTc: 497 [place]: P: CT: QRS: 159 T: -13 INTERPRETIVE STATEMENTS: Sinus rhythm Right bundle branch block, plus right ventricular hypertrophy Lateral infarct, age undetermined Abnormal ECG Compared to ECG 05/25/2022 14:00:27 Right bundle-branch block now present Right ventricular hypertrophy now present Myocardial infarct finding now present Ventricular-paced complex(es) or rhythm no longer present Electronically Signed On 08-17-23 13:19:24 CDT by Colt Vail
--- NOTE | 2023-08-17 13:22 | EKG ---
Test Date: 2023-08-16 Test Time: 13:04:33 Orthotic Practitioner: ARNOL MEASUREMENT RESULTS: Intervals: Rate: 70 [place]: QRSD: 152 QT: 460 QTc: 496 [place]: P: [place]: QRS: 154 T: -13 INTERPRETIVE STATEMENTS: Sinus rhythm Right bundle branch block Lateral infarct, age undetermined T wave abnormality, consider inferior ischemia Abnormal ECG Compared to ECG 08/16/2023 13:03:00 T-wave abnormality now present Possible ischemia now present Right ventricular hypertrophy no longer present Myocardial infarct finding still present Electronically Signed On 08-17-23 13:18:57 CDT by Colt Vail
--- NOTE | 2023-08-17 22:53 | PN ---
Date of Progress Note: 08/17/2023 Subjective: The patient was seen this morning for followup. She was lying in bed, not in distress. Reported that she did not have as much trouble breathing son last night compared to what she had pr ior to hospital admission. Her pain and swelling and redness from left hand index finger is better o vernight. Objective: Vital Signs: Reviewed. HEENT: Unremarkable. Lungs: Clear to auscultation except diminished air entry in the lower lung lema with some rales, o verall slightly better today than yesterday. Heart: Sounds normal. Abdomen: Soft. Bowel sounds normal. No guarding, rigidity, tenderness, distention. Extremities: Bilateral leg edema, but less today than yesterday. Laboratory Data: Reviewed. Impression: 1.Congestive heart failure, chronic, diastolic, with acute exacerbation. 2.Hypokalemia. 3.Hypomagnesemia. 4.Anemia. 5.Hypertension. 6.Diabetes mellitus. Plan: We will go ahead and continue current diabetes management with sliding scale insulin. Replace electrolyte per electrolyte replacement protocol. Continue IV Lasix. Continue current antihyperten sive medication and we will follow up with school library media program director. We will see her tomorrow for followup. Dep ending on her condition tomorrow, we will decide about possible discharge. We will continue Augmentin for her cellulitis of left hand index finger. JESSICA/MODL Voice ID: [id number] Report ID: [id number]
[2023-08-18 07:08] LABS: Anion Gap 5.2 mEq/L (5.0-15.0); Potassium 3.2 mEq/L (3.5-5.1)
[2023-08-18] MEDS: FUROSEMIDE 40 MG/4 ML VIAL IV SCH (08:44)
--- NOTE | 2023-08-18 08:46 | P.PN ---
Subjective Date of Service: 08/18/23 Chief Complaint: SOB/Lower extremity swelling Subjective: No new changes, No C/O voiced, Tolerating diet, Ambulating, Improving Review of Systems 10-point ROS is otherwise unremarkable Physical Examination - Vital Signs Temperature: 97.4 F Blood Pressure: 127/62 Pulse: 76 Respirations: 16 Pulse Ox (%): 92 - Physical Exam General: Alert, In no apparent distress HEENT: Atraumatic, PERRLA, EOMI Neck: Supple, JVD not distended Respiratory: Normal air movement, Crackles/rales Cardiovascular: Regular rate/rhythm, Normal S1 S2, Edema Gastrointestinal: Normal bowel sounds, No tenderness Musculoskeletal: No tenderness Integumentary: No rashes Neurological: Normal speech, Normal tone, Normal affect Lymphatics: No axilla or inguinal lymphadenopathy - Studies Medications List Reviewed: Yes Assessment And Plan - Current Problems (Diagnosis) (1) Acute on chronic diastolic (congestive) heart failure Current Visit: Yes Status: Acute Plan: Patient used to be on Lasix 80 mg po BID and Metolazone 2.5 mg every other day Switch Lasix to 40 mg IV q 8 hours. continue to monitor input and output and electrolytes Continue Losartan 25 mg daily Stop Norvasc Start Spirnolactone 25 mg daily (2) Atrial fibrillation Current Visit: Yes Status: Acute Plan: currently in sinus rhythm Continue Lopressor 25 mg po BID (3) CAD (coronary artery disease) Current Visit: Yes Status: Acute Plan: stable, negative troponin Continue ASA 81 mg daily
[2023-08-18 10:00] VITALS: O2SAT 93
--- NOTE | 2023-08-19 00:20 | PN ---
Date of Progress Note: 08/18/2023 Subjective: The patient was seen this morning for followup. She did not feel as well this morning c ompared to yesterday. Denies any shortness of breath at nighttime. No nausea, no vomiting. Objective: Vital Signs: Reviewed. HEENT: Unremarkable. Lungs: Clear to auscultation except diminished air entry in the lung bases. Not using accessory mus cles of respiration. Heart: Sounds normal. Abdomen: Soft. Bowel sounds normal. No guarding, rigidity, tenderness, distention. Extremities: Trace leg edema. Laboratory Data: Sodium 135, potassium 3.2, chloride 94, bicarb 39, BUN 33, creatinine 0.82, glucose 176. Impression: 1.Congestive heart failure, chronic, diastolic, with acute exacerbation. 2.Hypokalemia. 3.Hypertension. 4.Diabetes mellitus. Plan: We will go ahead and continue current diuretic therapy. Continue to follow with pickle water pump operator. Replace electrolyte per protocol. I will see her tomorrow for followup. Depending on her conditio n and blood work, we will decide if we can possibly discharge her to go home tomorrow or not. Contin ue current diabetes management. JESSICA/MODL Voice ID: [id number] Report ID: [id number]
[2023-08-19 01:41] VITALS: BMI 40.8
[2023-08-19 07:38] LABS: Anion Gap 3.8 mEq/L (5.0-15.0); Magnesium 1.8 mg/dL (1.6-2.4); Potassium 2.8 mEq/L (3.5-5.1)
[2023-08-19] MEDS: KCL 20 MEQ/100 mL IVPB 20 MEQ/100 ML BAG IV SCH (08:32)
[2023-08-19] MEDS: NA CHLORIDE 0.9% 500 ML ONE (08:32)
[2023-08-19] MEDS: MAGNESIUM SULFATE 1 gm IVPB 1 GM/100 ML BAG IV ONE (08:32)
--- NOTE | 2023-08-19 10:11 | P.PN ---
Subjective Date of Service: 08/19/23 Chief Complaint: SOB/Lower extremity swelling Subjective: No new changes (still requiring oxygen to ambulate), No C/O voiced, Tolerating diet, Ambulating, Improving Review of Systems 10-point ROS is otherwise unremarkable Physical Examination - Vital Signs Temperature: 96.5 F Blood Pressure: 144/63 Pulse: 70 Respirations: 16 Pulse Ox (%): 95 - Physical Exam General: Alert, In no apparent distress HEENT: Atraumatic, PERRLA, EOMI Neck: Supple, JVD not distended Respiratory: Normal air movement, Crackles/rales Cardiovascular: Regular rate/rhythm, Normal S1 S2, Edema Gastrointestinal: Normal bowel sounds, No tenderness Musculoskeletal: No tenderness Integumentary: No rashes Neurological: Normal speech, Normal tone, Normal affect Lymphatics: No axilla or inguinal lymphadenopathy - Studies Medications List Reviewed: Yes Assessment And Plan - Current Problems (Diagnosis) (1) Acute on chronic diastolic (congestive) heart failure Current Visit: Yes Status: Acute Plan: Patient used to be on Lasix 80 mg po BID and Metolazone 2.5 mg every other day continue Lasix 40 mg IV q 8 hours. continue to monitor input and output and electrolytes Continue Losartan 25 mg daily Stop Norvasc Start Spirnolactone 25 mg daily (2) Atrial fibrillation Current Visit: Yes Status: Acute Plan: currently in sinus rhythm Continue Lopressor 25 mg po BID (3) CAD (coronary artery disease) Current Visit: Yes Status: Acute Plan: stable, negative troponin Continue ASA 81 mg daily
[2023-08-19 13:57] VITALS: BP 128/80; TEMP 97.5
--- NOTE | 2023-08-20 01:02 | DS ---
Date of Discharge: 08/19/2023 Disposition: Discharged to go home. Physical Examination: HEENT: Unremarkable. Lungs: Clear to auscultation. Heart: Sounds normal. Abdomen: Soft. Bowel sounds normal. No guarding, rigidity, tenderness, distention. Extremities: No leg edema. Laboratory Data: Upon admission, white count 9.9, hemoglobin 13.5, platelets 239, and repeat CBC from 08/17/2023, white count 7.3, hemoglobin 13.3, platelets 210. For chemistry, upon admission, sodium 137, potassium 2.9, chloride 97, bicarb 39, BUN 28, creatinine 0.75, glucose 92. Liver function tests unremarkable. ProBNP 1448. Hospital Course: This is a 77-year-old pleasant female patient admitted to the hospital with shortness of breath and pain in her left finger. Please see dictated H and P for more information. The patient was admitted to the hospital with acute exacerbation of chronic diastolic heart failure. She also had cellulitis of left index finger. After she was evaluated in the emergency room, she was admitted to the hospital. IV diuretic therapy was started. Cardiology consultation was requested and we monitored her intake, output, daily weight, electrolytes, renal function, etc. We also started her on Augmentin for cellulitis of the left hand index finger. Overall, her cellulitis has improved significantly. Her congestive heart failure problem also has improved quite a bit. She did have low potassium during this hospitalization which was addressed with electrolyte replacement protocol. The patient's condition overall has improved and today she was discharged to go home in stable condition with following discharge medications and instructions. The patient did have significant hypoxia at home prior to this hospital admission and during this hospital stay, she continuously remained on oxygen 2 to 3 L/minute. This morning when I saw her, she was on oxygen at 3 L/minute and I did discontinue her oxygen and within 30 minutes, after we stopped oxygen, her room air oxygen saturation was 80% and this qualifies for home oxygen. Social Service was consulted to make arrangements for home oxygen and will discharge her once oxygen is available for home use. She was discharged to go home in stable condition with following discharge medications and instructions. Final Diagnoses: 1. Congestive heart failure, chronic, diastolic, with acute exacerbation. 2. Acute pulmonary edema. 3. Hypokalemia. 4. Cellulitis, left hand index finger. 5. Hypomagnesemia. 6. Coronary artery disease. 7. Chronic atrial fibrillation. 8. Hypertension. 9. Hyperlipidemia. 10. Type 2 diabetes mellitus. 11. Hypothyroidism. 12. Osteoarthritis, multiple sites. 13. Chronic respiratory failure with hypoxia. 14. Cellulitis, left hand index finger. Discharge Medications And Instructions: 1. Continue all prior home medication. 2. Take Augmentin 875 mg 2 times a day with food for 1 week. 3. Follow up at my office next week. 4. Follow up with salesperson hosiery in 2 weeks. Total time spent 45 minutes that includes review of this hospital admission record, review of cardiology consult, performing today's evaluation and management and communication with nursing staff and then rn social services regarding home oxygen arrangement and sending prescription as per discharge order. JESSICA/MODL Voice ID: [id number] Report ID: [id number] MTDD
== END 2023-08-19 16:55 | disposition home or self-care (01) | DRG 291 ==
LOC: ER 12:32 → ERHOLD 19:50 → 4TH 21:04
PROVIDERS: ADMIT Internal Medicine; ATTEND Internal Medicine
DX: I11.0 Hypertensive heart disease with heart failure (principal); I50.33 Acute on chronic diastolic (congestive) heart failure; J96.01 Acute respiratory failure with hypoxia; I48.20 Chronic atrial fibrillation, unspecified; E87.6 Hypokalemia; E83.42 Hypomagnesemia; E03.9 Hypothyroidism, unspecified; E78.5 Hyperlipidemia, unspecified; L03.012 Cellulitis of left finger; M19.09 Primary osteoarthritis, other specified site; E11.9 Type 2 diabetes mellitus without complications; I25.10 Atherosclerotic heart disease of native coronary artery without angina pectoris; Z88.5 Allergy status to narcotic agent; Z88.1 Allergy status to other antibiotic agents; Z95.0 Presence of cardiac pacemaker; Z79.4 Long term (current) use of insulin; Z95.2 Presence of prosthetic heart valve; Z11.52 Encounter for screening for COVID-19; Z79.82 Long term (current) use of aspirin; Z90.49 Acquired absence of other specified parts of digestive tract; Z79.02 Long term (current) use of antithrombotics/antiplatelets; Z91.148 Patient's other noncompliance with medication regimen for other reason; Z79.899 Other long term (current) drug therapy; Z90.710 Acquired absence of both cervix and uterus
CPT/HCPCS: 0241U; 36415; 71045; 71275; 80048; 80076; 81001; 82947; 83735; 83880; 84132; 84484; 85025; 85379; 85610; 87086; 87088; 93005; 96365; 96366; 96375; 99285; J1650; J1940; J3475; J3480; J7040; Q9967

== ENCOUNTER 2024-04-20 14:52 | Inpatient (IN) | payer OTHER ==
--- OUTSIDE RECORDS SUMMARY | 2024-04-20 15:05 | XMS REPORT | Continuity of Care Document ---
Author Name Unknown Address [address] [facility] [address] [place] [address] [facility] Address [address] [facility] [address] [place] [address] Care Team Providers Care Surfacing Machine Operator Name Role Phone Abdiaziz Fuchs Attending Clinician Unavailable GC_GCBZW_Kadiyala_S Attending Clinician UnavailJesus Garcia Attending Clinician Unavail able Jeffry Hsu Attending Clinician Unavailable GC_GCBZW_Kadiyala_S Admitting Clinician UnavailJesus Garcia Admitting Clinician Unavail able Jeffry Hsu Admitting Clinician Unavailable Abdiaziz Fuchs Admitting Clinician Unavailable Payers Payer Name Policy Type Policy Number Effective Date Expirati on Date Source Problems Condition Name Condition Details Condition Category Status Onset Date Resolution Date Last Treatment Date Treating Clinician Comments Source [id number] Lower urinary tract symptoms (LUTS) Problem [facility] [id number] Incomplete bladder emptying Problem [facility] [id number] Other closed displaced fracture of distal end of right humerus, initial encounter Problem [facility] [id number] Rectocele, female Problem [facility] [id number] OAB (overactiv e bladder) Problem [facility] Allergies, Adverse Reactions, Alerts Allergy Name Allergy Type Status Severity Reaction(s) Onset Date Inactive Date Treating Clinician Comments Source morphine DA Active SV RASH, SWELLING 2021-03 0 00:00: 00 [facility] ciproflo xacin DA Active SV JOINT PAIN 2021-03 0 00:00: 00 [facility] morphine DA Active SV RASH, SWELLING 12-12 00:00: 00 [facility] ciproflo xacin DA Active SV JOINT PAIN 12-12 00:00: 00 [facility] morphine morphine Active Unknown Commo n [facility] ciproflo xacin ciproflo xacin Active Unknown [facility] Social History Social Habit Start Date Stop Date Quantity Comments Source History of Tobacco Use [facility] Sex Assigned At [facility] Smoking Status Start Date Stop Date Source Never Smoker [facility] Former Smoker 2024-02-01 00:00:00 2024-02-01 00:00:00 [facility] Medications Ordered Medication Name Filled Medication Name Start Date Stop Date Current Medication? Ordering Clinician Indication Dosage Frequency Signature (SIG) Comments Components Source Cephalexin 500 MG Cephalexin 500 MG 2023-03 2-13 00:00: 00 No 1{capsu le} TID Cephalexin 500 MG Amoxicillin 500 MG Amoxicillin 500 MG 2023-03 1- 00:00: 00 No 1{capsu le} TID Amoxicilli n 500 MG Myrbetriq 25 MG Myrbetriq 25 MG - 00:00: 00 No 1{table t} QD Myrbetriq 25 MG Uroxatral 10 MG Uroxatral 10 MG 8-05 00:00: 00 No 1{table t_at_be dtime} QD Uroxatral 10 MG Vitamin E Vitamin E No Vitamin E Levemir FlexPen 100 UNIT/ML Levemir FlexPen 100 UNIT/ML No Levemir FlexPen 100 UNIT/ML Metoprolol Tartrate 25 MG Metoprolol Tartrate 25 MG No Metoprolol Tartrate 25 MG Atorvastati n Calcium 40 MG Atorvastati n Calcium 40 MG No Atorvastat in Calcium 40 MG Multi Vitamin - Multi Vitamin - No 1{table t} QD Multi Vitamin - amLODIPine Besylate 5 MG amLODIPine Besylate 5 MG No 1{table t} QD amLODIPine Besylate 5 MG Aspirin 81 MG Aspirin 81 MG No 1{table t} QD Aspirin 81 MG Vital Signs Vital Name Observation Time Observation Value Comments Brenda contreras height 2023-12-10 10:30:00 64 [in_i] Commo n [facility] weight 2023-12-10 10:30:00 239.6 [lb_av] Co [facility] temperature 2023-12-10 10:30:00 97.7 [degF] Com mon [facility] bmi 2023-12-10 10:30:00 41.12 kg/m2 Comm on [facility] oximetry 2023-12-10 10:30:00 92 % Commo n [facility] blood pressure systolic 2023-12-10 10:30:00 126 mm[Hg] Common [facility] blood pressure diastolic 2023-12-10 10:30:00 84 mm[Hg] Common [facility] height 2023-10-18 16:00:00 64 [in_i] Commo n [facility] weight 2023-10-18 16:00:00 242.8 [lb_av] Co [facility] bmi 2023-10-18 16:00:00 41.67 kg/m2 Comm on [facility] blood pressure systolic 2023-10-18 16:00:00 142 mm[Hg] [facility] blood pressure diastolic 2023-10-18 16:00:00 68 mm[Hg] Common [facility] Procedures Procedure Date / Time Performed Performing Clinicia n Source PVR 2023-10-18 00:00:00 Common S [facility] [id number] 2022-01-07 00:00:00 GIBJE.01 [facility] [id number] 2022-01-07 00:00:00 GIBJE.01 [facility] [id number] 2022-01-07 00:00:00 GIBJE.01 [facility] [id number] 2022-01-07 00:00:00 GIBJE.01 [facility] [id number] 2021-12-26 00:00:00 ALKNE [facility] [id number] 2021-12-26 00:00:00 ALKNE [facility] [id number] 2021-12-24 00:00:00 HYD [facility] [id number] 2021-12-24 00:00:00 [facility] [id number] 2021-12-24 00:00:00 [facility] [id number] 2021-12-19 00:00:00 MOUAN [facility] [id number] 2021-12-19 00:00:00 CHAAB.01 [facility] [id number] 2021-12-19 00:00:00 CHAAB.01 [facility] [id number] 2021-12-19 00:00:00 CHAAB.01 [facility] [id number] 2021-12-19 00:00:00 CHAAB.01 [facility] [id number] 2021-12-19 00:00:00 CHAAB.01 [facility] [id number] 2021-12-19 00:00:00 CHAAB.01 [facility] [id number] 2021-12-19 00:00:00 ALKNE [facility] [id number] 2021-12-19 00:00:00 ALKNE [facility] [id number] 2021-12-19 00:00:00 ALKNE [facility] [id number] 2021-12-19 00:00[facility] [id number] 2021-12-19 00:00:[address] [facility] [id number] 2021-12-19 00:00[facility] [id number] 2021-12-19 00:00:[address] [facility] [id number] 2021-12-19 00:00:[address] [facility] [id number] 2021-12-17 00:00:[address] [facility] [id number] 2021-12-17 00:00:[address] [facility] Encounters Start Date/Time End Date/Time Encounter Type Admission Type Attending Clinicians Care Facility Care Department Encounter ID Source 2023-10-18 15:32:00 Outpatient Fuchs, Abdiaziz STLMLC STLMLC [id number] [facility] 2023-07-28 09:56:00 Outpatient Fuchs, Abdiaziz STLMLC STLMLC [id number] [facility] 2023-05-26 11:28:00 Outpatient Fuchs, Abdiaziz STLMLC STLMLC [id number] [facility] 2021-09-04 14:26:02 Outpatient Fuchs, Abdiaziz STLMLC STLMLC [id number] [facility] 2021-06-25 10:03:03 Outpatient STLMLC STLMLC [id number] [facility] 2021-06-18 08:37:02 Outpatient STLMLC STLMLC [id number] [facility] 2021-06-13 10:29:05 Outpatient STLMLC STLMLC [id number] [facility] 2024-02-23 00:00:00 2024-02-23 00:00:00 ([place]) Nurse Visit STLMLC STLMLC [id number] [facility] 2024-02-21 00:00:00 2024-02-21 00:00:00 (TEL) STLMLC STLMLC [id number] [facility] 2024-02-07 00:00:00 2024-02-07 00:00:00 (TEL) STLMLC STLMLC [id number] [facility] 2024-02-01 00:00:00 2024-02-01 00:00:00 ([place]) Nurse Visit STLMLC STLMLC [id number] [facility] 2024-01-31 00:00:00 2024-01-31 00:00:00 (TEL) STLMLC STLMLC [id number] [facility] 2023-12-10 00:00:00 2023-12-10 00:00:00 OFFICE VISIT ESTAB PT LEVEL 4 STLMLC STLMLC [id number] [facility] 2023-10-18 00:00:00 2023-10-18 00:00:00 OFFICE VISIT NEW PT LEVEL 3 STLMLC STLC [id number] [facility] 2023-01-13 00:00:00 2023-01-13 00:00:00 Outpatient GC_GCBZW_Ka diyala_S [facility] [id number] [facility] 2022-01-07 19:57:00 2022-01-21 23:59:00 Inpatient Jesus Sethi [facility] REHA [id number] [facility] 2021-12-17 12:00:00 2022-01-07 19:20:00 Inpatient DREW Hsu Jeffry [facility] INTE [id number] [facility] 2021-12-12 08:00:00 2021-12-12 09:00:[address] [facility] ZZZB [id number] [facility] Results Test Description Test Time Test Comments Results Result Co mments Source GLUCOSE [id number] 02:18:00* Test Item Value Reference Range Interpretation Comme nts GLUCOSE BEDSIDE (test code = GLUBED) 150 MG/DL 70-110 H Performed by cer tified gas burner operator at [facility] CBC W/AUTO [id number] 08:16:00* Test Item Value Reference Range Interpretation [...] c ode = MDIFF) NO BASIC METABOLIC [id number] 07:50:00* Test Item Value Reference Range Interpretation [...] code = CA) 9.6 mg/dL 8.0-10.5 N [id number] 07:50:00* Test Item Value Reference Range Interpretation Comme nts MAGNESIUM (test code = MAG) 2.05 mg/dL 1.80-2.40 N GLUCOSE [id number] 06:41:00* Test Item Value Reference Range Interpretation Comme nts GLUCOSE BEDSIDE (test code = GLUBED) 99 MG/DL 70-110 N Performed by cer tified gas burner operator at [facility] GLUCOSE [id number] 20:16:00* Test Item Value Reference Range Interpretation Comme nts GLUCOSE BEDSIDE (test code = GLUBED) 196 MG/DL 70-110 H Performed by cer tified gas burner operator at [facility] GLUCOSE [id number] 16:27:00* Test Item Value Reference Range Interpretation Comme nts GLUCOSE BEDSIDE (test code = GLUBED) 207 MG/DL 70-110 H Performed by cer tified gas burner operator at [facility] GLUCOSE [id number] 11:35:00* Test Item Value Reference Range Interpretation Comme nts GLUCOSE BEDSIDE (test code = GLUBED) 161 MG/DL 70-110 H Performed by cer tified gas burner operator at [facility] GLUCOSE [id number] 06:01:00* Test Item Value Reference Range Interpretation Comme nts GLUCOSE BEDSIDE (test code = GLUBED) 112 MG/DL 70-110 H Performed by cer tified gas burner operator at [facility] GLUCOSE [id number] 19:38:00* Test Item Value Reference Range Interpretation Comme nts GLUCOSE BEDSIDE (test code = GLUBED) 197 MG/DL 70-110 H Performed by cer tified gas burner operator at [facility] GLUCOSE [id number] 16:10:00* Test Item Value Reference Range Interpretation Comme nts GLUCOSE BEDSIDE (test code = GLUBED) 166 MG/DL 70-110 H Performed by cer tified gas burner operator at [facility] GLUCOSE [id number] 11:37:00* Test Item Value Reference Range Interpretation Comme nts GLUCOSE BEDSIDE (test code = GLUBED) 136 MG/DL 70-110 H Performed by cer tified gas burner operator at [facility] CBC W/AUTO [id number] 08:13:00* Test Item Value Reference Range Interpretation [...] c ode = MDIFF) NO BASIC METABOLIC [id number] 07:37:00* Test Item Value Reference Range Interpretation [...] code = CA) 9.3 mg/dL 8.0-10.5 N [id number] 07:37:00* Test Item Value Reference Range Interpretation Comme nts MAGNESIUM (test code = MAG) 1.90 mg/dL 1.80-2.40 N B-TYPE NATRIURETIC [id number] 07:14:00* Test Item Value Reference Range Interpretation Comme nts B-TYPE NATRIURETIC PEPTIDE ( test code = BNP) 241.0 PG/ML 0-100 H GLUCOSE [id number] 06:39:00* Test Item Value Reference Range Interpretation Comme nts GLUCOSE BEDSIDE (test code = GLUBED) 93 MG/DL 70-110 N Performed by cer tified gas burner operator at [facility] GLUCOSE [id number] 01:49:00* Test Item Value Reference Range Interpretation Comme nts GLUCOSE BEDSIDE (test code = GLUBED) 77 MG/DL 70-110 N Performed by cer tified gas burner operator at [facility] GLUCOSE [id number] 01:20:00* Test Item Value Reference Range Interpretation Comme nts GLUCOSE BEDSIDE (test code = GLUBED) 56 MG/DL 70-110 L Performed by cer tified gas burner operator at [facility] GLUCOSE [id number] 20:14:00* Test Item Value Reference Range Interpretation Comme nts GLUCOSE BEDSIDE (test code = GLUBED) 192 MG/DL 70-110 H Performed by cer tified gas burner operator at [facility] GLUCOSE [id number] 16:26:00* Test Item Value Reference Range Interpretation Comme nts GLUCOSE BEDSIDE (test code = GLUBED) 162 MG/DL 70-110 H Performed by cer tified gas burner operator at [facility] GLUCOSE [id number] 12:27:00* Test Item Value Reference Range Interpretation Comme nts GLUCOSE BEDSIDE (test code = GLUBED) 128 MG/DL 70-110 H Performed by cer tified gas burner operator at [facility] URINALYSIS [id number] 11:00:00* Test Item Value Reference Range Interpretation [...] MUCU) TRACE /LPF NONE SEEN BASIC METABOLIC [id number] 06:05:00* Test Item Value Reference Range Interpretation [...] = CA) 9.3 mg/dL 8.0-10.5 N CALCIUM [id number] 06:05:00* Test Item Value Reference Range Interpretation Comme nts CALCIUM IONIZED (test code = TYREE) 1.15 MMOL/L 1.09-1.30 N GLUCOSE [id number] 05:24:00* Test Item Value Reference Range Interpretation Comme nts GLUCOSE BEDSIDE (test code = GLUBED) 78 MG/DL 70-110 N Performed by cer tified gas burner operator at [facility] GLUCOSE [id number] 20:24:00* Test Item Value Reference Range Interpretation Comme nts GLUCOSE BEDSIDE (test code = GLUBED) 142 MG/DL 70-110 H Performed by cer tified gas burner operator at [facility] GLUCOSE [id number] 17:17:00* Test Item Value Reference Range Interpretation Comme nts GLUCOSE BEDSIDE (test code = GLUBED) 157 MG/DL 70-110 H Performed by cer tified gas burner operator at [facility] GLUCOSE [id number] 12:04:00* Test Item Value Reference Range Interpretation Comme nts GLUCOSE BEDSIDE (test code = GLUBED) 132 MG/DL 70-110 H Performed by cer tified gas burner operator at [facility] CBC W/AUTO [id number] 10:36:00* Test Item Value Reference Range Interpretation [...] (test c ode = MDIFF) NO GLUCOSE [id number] 06:21:00* Test Item Value Reference Range Interpretation Comme nts GLUCOSE BEDSIDE (test code = GLUBED) 119 MG/DL 70-110 H Performed by cer arlene gas burner operator at [facility] - XR CHEST 2 [id number] 00:00:00 [facility] 1945 Sex: F FAX: Suki Fuchs MD [place]: St: FAX: Abdiaziz Christiansen MD [phone] FAX: Jesus Flores [phone] Name: KIAH GILES [facility] James Hart : 1945 Age/S: 76/F [address] [place] [address] Unit #: [id number]: [place] [address] Phys: Suki Fuchs MD Acct: [id number] Dis Date: Status: ADM IN PHONE #: [phone] Exam Date: 01/17/2022 1445 FAX #: [phone] Reason: FOR WORSENING BREATHING/CONGESTION EXAMS: CPT CODE: [id number] XR CHEST 2 V 16115 PROCEDURE INFORMATION: Exam: XR Chest Exam dateand [...] Cain(Marla) Trnscrd Date/Time/By: 01/17/2022 (150) : By: [email or web address] Orig Print D/T: S: 01/17/2022 (0081) PAGE 1 Signed ReportGLUCOSE [id number] 21:08:00* Test Item Value Reference Range Interpretation Comme nts GLUCOSE BEDSIDE (test code = GLUBED) 200 MG/DL 70-110 H Performed by cer tified gas burner operator at [facility] GLUCOSE [id number] 16:14:00* Test Item Value Reference Range Interpretation Comme nts GLUCOSE BEDSIDE (test code = GLUBED) 127 MG/DL 70-110 H Performed by cer tified gas burner operator at [facility] GLUCOSE [id number] 11:59:00* Test Item Value Reference Range Interpretation Comme nts GLUCOSE BEDSIDE (test code = GLUBED) 117 MG/DL 70-110 H Performed by cer tified gas burner operator at [facility] B-TYPE NATRIURETIC [id number] 10:47:00* Test Item Value Reference Range Interpretation Comme nts B-TYPE NATRIURETIC PEPTIDE ( test code = BNP) 258.0 PG/ML 0-100 H BASIC METABOLIC [id number] 07:58:00* Test Item Value Reference Range Interpretation [...] = CA) 9.5 mg/dL 8.0-10.5 N CALCIUM [id number] 07:58:00* Test Item Value Reference Range Interpretation Comme nts CALCIUM IONIZED (test code = TYREE) 1.16 MMOL/L 1.09-1.30 N GLUCOSE [id number] 06:17:00* Test Item Value Reference Range Interpretation Comme [facility] GLUCOSE BEDSIDE (test code = GLUBED) 98 MG/DL 70-110 N Performed by cer tified gas burner operator at [facility] GLUCOSE [id number] 21:19:00* Test Item Value Reference Range Interpretation Comme nts GLUCOSE BEDSIDE (test code = GLUBED) 132 MG/DL 70-110 H Performed by cer tified gas burner operator at [facility] GLUCOSE [id number] 15:45:00* Test Item Value Reference Range Interpretation Comme nts GLUCOSE BEDSIDE (test code = GLUBED) 159 MG/DL 70-110 H Performed by cer tified gas burner operator at [facility] GLUCOSE [id number] 11:16:00* Test Item Value Reference Range Interpretation Comme nts GLUCOSE BEDSIDE (test code = GLUBED) 154 MG/DL 70-110 H Performed by cer tified gas burner operator at [facility] GLUCOSE [id number] 06:02:00* Test Item Value Reference Range Interpretation Comme nts GLUCOSE BEDSIDE (test code = GLUBED) 113 MG/DL 70-110 H Performed by cer tified gas burner operator at [facility] GLUCOSE [id number] 05:18:00* Test Item Value Reference Range Interpretation Comme nts GLUCOSE BEDSIDE (test code = GLUBED) 57 MG/DL 70-110 L Performed by cer tified gas burner operator at [facility] GLUCOSE [id number] 19:38:00* Test Item Value Reference Range Interpretation Comme nts GLUCOSE BEDSIDE (test code = GLUBED) 186 MG/DL 70-110 H Performed by cer tified gas burner operator at [facility] GLUCOSE [id number] 16:05:00* Test Item Value Reference Range Interpretation Comme nts GLUCOSE BEDSIDE (test code = GLUBED) 183 MG/DL 70-110 H Performed by cer tified gas burner operator at [facility] GLUCOSE [id number] 11:25:00* Test Item Value Reference Range Interpretation Comme nts GLUCOSE BEDSIDE (test code = GLUBED) 114 MG/DL 70-110 H Performed by cer tified gas burner operator at [facility] BASIC METABOLIC [id number] 08:05:00* Test Item Value Reference Range Interpretation [...] code = CA) 9.2 mg/dL 8.0-10.5 N [id number] 08:05:00* Test Item Value Reference Range Interpretation Comme nts MAGNESIUM (test code = MAG) 1.83 mg/dL 1.80-2.40 N GLUCOSE [id number] 05:00:00* Test Item Value Reference Range Interpretation Comme nts GLUCOSE BEDSIDE (test code = GLUBED) 83 MG/DL 70-110 N Performed by cer arlene gas burner operator at [facility] - XR CHEST 1 [id number] 00:00:00 [facility] : 1945 Sex: F FAX: Abdiaziz Christiansen MD [phone] [place]: St: ADM FAX: Jesus Flores [phone] FAX: Isabella Clemens [phone] Name: KIAH GILES [facility] : 1945 Age/S: 76/F [address] [place] [address] Blvd Unit #: [id number] Loc: [address] [place] [address] Phys: Isabella Clemens Acct: [id number] Dis Date: Status: ADM IN PHONE #: [phone] Exam Date: 01/14/2022 09 FAX #: [phone] Reason: SOB, CHF EXAMS: CPT CODE: [id number] XR CHEST 1 V 72859 PROCEDURE INFORMATION: Exam: XR Chest Exam date [...] CC: Abdiaziz Fuchs MD; Jesus Landry; Isabella Clemens Technologist: RT Jeison(Marla) Trnscrd Date/Time/By: 01/14/2022 (1040) : By: Aurora Orig Print D/T: S: 01/14/2022 (3001) PAGE 1 Signed ReportGLUCOSE [id number] 19:47:00* Test Item Value Reference Range Interpretation Comme nts GLUCOSE BEDSIDE (test code = GLUBED) 193 MG/DL 70-110 H Performed by cer arlene gas burner operator at [facility] GLUCOSE [id number] 16:47:00* Test Item Value Reference Range Interpretation Comme nts GLUCOSE BEDSIDE (test code = GLUBED) 146 MG/DL 70-110 H Performed by cer tified gas burner operator at [facility] GLUCOSE [id number] 11:18:00* Test Item Value Reference Range Interpretation Comme nts GLUCOSE BEDSIDE (test code = GLUBED) 164 MG/DL 70-110 H Performed by cer tified gas burner operator at [facility] GLUCOSE [id number] 05:19:00* Test Item Value Reference Range Interpretation Comme nts GLUCOSE BEDSIDE (test code = GLUBED) 143 MG/DL 70-110 H Performed by cer tified gas burner operator at [facility] GLUCOSE [id number] 20:33:00* Test Item Value Reference Range Interpretation Comme nts GLUCOSE BEDSIDE (test code = GLUBED) 159 MG/DL 70-110 H Performed by cer tified gas burner operator at [facility] GLUCOSE [id number] 16:47:00* Test Item Value Reference Range Interpretation Comme nts GLUCOSE BEDSIDE (test code = GLUBED) 233 MG/DL 70-110 H Performed by cer tified gas burner operator at [facility] GLUCOSE [id number] 11:35:00* Test Item Value Reference Range Interpretation Comme nts GLUCOSE BEDSIDE (test code = GLUBED) 164 MG/DL 70-110 H Performed by cer tified gas burner operator at [facility] CBC W/AUTO [id number] 10:51:00* Test Item Value Reference Range Interpretation [...] (test c ode = MDIFF) NO RBC [id number] 10:51:00* Test Item Value Reference Range Interpretation Comme nts ANISOCYTOSIS (test code = ANISO) 2+ POIKILOCYTOSIS (test code = POIK) 1+ MACROCYTOSIS (test code = MACR) 1+ SCHISTOCYTES (test code = FRANKIE) 1+ B-TYPE NATRIURETIC [id number] 09:36:00* Test Item Value Reference Range Interpretation Comme nts B-TYPE NATRIURETIC PEPTIDE ( test code = BNP) 180.0 PG/ML 0-100 H BASIC METABOLIC [id number] 07:41:00* Test Item Value Reference Range Interpretation [...] code = CA) 9.0 mg/dL 8.0-10.5 N [id number] 07:41:00* Test Item Value Reference Range Interpretation Comme nts ALBUMIN (test code = ALB) 3.60 g/dL 3.4-5.0 N [id number] 07:41:00* Test Item Value Reference Range Interpretation Comme nts MAGNESIUM (test code = MAG) 1.77 mg/dL 1.80-2.40 L [id number] 07:41:00* Test Item Value Reference Range Interpretation Comme nts PREALBUMIN (test code = PREALB) 13.8 mg/dL 16.0-40.0 L GLUCOSE [id number] 06:00:00* Test Item Value Reference Range Interpretation Comme nts GLUCOSE BEDSIDE (test code = GLUBED) 100 MG/DL 70-110 N Performed by cer tified gas burner operator at [facility] GLUCOSE [id number] 19:49:00* Test Item Value Reference Range Interpretation Comme nts GLUCOSE BEDSIDE (test code = GLUBED) 267 MG/DL 70-110 H Performed by cer tified gas burner operator at [facility] GLUCOSE [id number] 17:10:00* Test Item Value Reference Range Interpretation Comme nts GLUCOSE BEDSIDE (test code = GLUBED) 286 MG/DL 70-110 H Performed by cer tified gas burner operator at [facility] GLUCOSE [id number] 11:42:00* Test Item Value Reference Range Interpretation Comme nts GLUCOSE BEDSIDE (test code = GLUBED) 140 MG/DL 70-110 H Performed by cer tified gas burner operator at [facility] FLUID [id number] 11:03:00* Test Item Value Reference Range Interpretation Comme nts FLUID CO2 (test code = CO2BF) 37 21-33 H [id number] 11:03:00* Test Item Value Reference Range Interpretation Comme nts FLUID CO2 (test code = CO2BF) 37 21-33 H [id number] METABOLIC [id number] 07:03:00* Test Item Value Reference Range Interpretation [...] code = CA) 9.1 mg/dL 8.0-10.5 N [id number] 07:03:00* Test Item Value Reference Range Interpretation Comme nts MAGNESIUM (test code = MAG) 1.80 mg/dL 1.80-2.40 N GLUCOSE [id number] 06:35:00* Test Item Value Reference Range Interpretation Comme nts GLUCOSE BEDSIDE (test code = GLUBED) 71 MG/DL 70-110 N Performed by cer tified gas burner operator at [facility] GLUCOSE [id number] 05:43:00* Test Item Value Reference Range Interpretation Comme nts GLUCOSE BEDSIDE (test code = GLUBED) 60 MG/DL 70-110 L Performed by cer tified gas burner operator at [facility] GLUCOSE [id number] 20:43:00* Test Item Value Reference Range Interpretation Comme nts GLUCOSE BEDSIDE (test code = GLUBED) 194 MG/DL 70-110 H Performed by cer tified gas burner operator at [facility] GLUCOSE [id number] 16:59:00* Test Item Value Reference Range Interpretation Comme nts GLUCOSE BEDSIDE (test code = GLUBED) 179 MG/DL 70-110 H Performed by cer tified gas burner operator at [facility] FLUID [id number] 16:10:00* Test Item Value Reference Range Interpretation Comme nts FLUID CO2 (test code = CO2BF) 39 21-33 H FLUID [id number] 16:10:00* Test Item Value Reference Range Interpretation Comme nts FLUID CO2 (test code = CO2BF) 39 21-33 H GLUCOSE [id number] 12:10:00* Test Item Value Reference Range Interpretation Comme nts GLUCOSE BEDSIDE (test code = GLUBED) 137 MG/DL 70-110 H Performed by cer tified gas burner operator at [facility] BASIC METABOLIC [id number] 08:04:00* Test Item Value Reference Range Interpretation [...] = CA) 9.0 mg/dL 8.0-10.5 N CALCIUM [id number] 08:04:00* Test Item Value Reference Range Interpretation Comme nts CALCIUM IONIZED (test code = TYREE) 1.15 MMOL/L 1.09-1.30 N GLUCOSE [id number] 05:42:00* Test Item Value Reference Range Interpretation Comme nts GLUCOSE BEDSIDE (test code = GLUBED) 92 MG/DL 70-110 N Performed by cer tified gas burner operator at [facility] GLUCOSE [id number] 19:49:00* Test Item Value Reference Range Interpretation Comme nts GLUCOSE BEDSIDE (test code = GLUBED) 204 MG/DL 70-110 H Performed by cer tified gas burner operator at [facility] GLUCOSE [id number] 15:58:00* Test Item Value Reference Range Interpretation Comme nts GLUCOSE BEDSIDE (test code = GLUBED) 122 MG/DL 70-110 H Performed by cer tified gas burner operator at [facility] GLUCOSE [id number] 11:08:00* Test Item Value Reference Range Interpretation Comme nts GLUCOSE BEDSIDE (test code = GLUBED) 172 MG/DL 70-110 H Performed by cer tified gas burner operator at [facility] [id number] 07:38:00* Test Item Value Reference Range Interpretation Comme nts POTASSIUM (test code = K) 3.0 mEq/L 3.4-5.0 L B-TYPE NATRIURETIC [id number] 07:27:00* Test Item Value Reference Range Interpretation Comme nts B-TYPE NATRIURETIC PEPTIDE ( test code = BNP) 232.0 PG/ML 0-100 H GLUCOSE [id number] 06:10:00* Test Item Value Reference Range Interpretation Comme nts GLUCOSE BEDSIDE (test code = GLUBED) 94 MG/DL 70-110 N Performed by cer tified gas burner operator at [facility] - XR CHEST 1 [id number] 00:00:00 [facility] 1945 Sex: F FAX: Y Shila,Abdiaziz C MD [phone] [place]: St: ADM FAX: Jesus Flores [phone] Name: KIAH GILES [facility] : 1945 Age/S: 76/F [address] [place] [address] Unit #: [id number] Loc: [address] [address] Phys: Jesus Landry MD Acct: [id number] Dis Date: Status: ADM IN PHONE #: [phone] Exam Date: 01/09/2022 0949 FAX #: [phone] Reason: SHORTNESS OF BREATH EXAMS: CPT CODE: [id number] XR CHEST 1 V 32751 PROCEDURE INFORMATION: Exam: XR Chest Exam date [...] Abdiaziz Fuchs MD; Jesus Landry Technologist: RT Valdez (R) Trnscrd Date/Time/By: 01/09/2022 (3076) : By: Catherine Orig Print D/T: S: 01/09/2022 (0276) PAGE 1 Signed ReportGLUCOSE [id number] 20:39:00* Test Item Value Reference Range Interpretation Comme nts GLUCOSE BEDSIDE (test code = GLUBED) 167 MG/DL 70-110 H Performed by [facility] tified gas burner operator at [facility] GLUCOSE [id number] 16:08:00* Test Item Value Reference Range Interpretation Comme nts GLUCOSE BEDSIDE (test code = GLUBED) 153 MG/DL 70-110 H Performed by [facility] tified gas burner operator at [facility] GLUCOSE [id number] 11:08:00* Test Item Value Reference Range Interpretation Comme nts GLUCOSE BEDSIDE (test code = GLUBED) 195 MG/DL 70-110 H Performed by [facility] tified gas burner operator at [facility] BASIC METABOLIC [id number] 08:05:00* Test Item Value Reference Range Interpretation [...] CA) 9.4 mg/dL 8.0-10.5 N RENAL FUNCTION [id number] 08:05:00* Test Item Value Reference Range Interpretation Comme nts ALBUMIN (test code = ALB) 3.50 g/dL 3.4-5.0 N PHOSPHOROUS (test code = PHOS) 2.7 MG/DL 2.5-4.9 N [id number] 08:05:00* Test Item Value Reference Range Interpretation Comme nts MAGNESIUM (test code = MAG) 1.83 mg/dL 1.80-2.40 N CBC W/AUTO [id number] 08:04:00* Test Item Value Reference Range Interpretation [...] = HGBA1C%) 5.8 %A1C 4.8-6.0 N GLUCOSE [id number] 05:36:00* Test Item Value Reference Range Interpretation Comme nts GLUCOSE BEDSIDE (test code = GLUBED) 168 MG/DL 70-110 H Performed by cer tified gas burner operator at [facility] GLUCOSE [id number] 18:16:00* Test Item Value Reference Range Interpretation Comme nts GLUCOSE BEDSIDE (test code = GLUBED) 194 MG/DL 70-110 H Performed by cer tified gas burner operator at [facility] GLUCOSE [id number] 12:29:00* Test Item Value Reference Range Interpretation Comme nts GLUCOSE BEDSIDE (test code = GLUBED) 176 MG/DL 70-110 H Performed by cer tified gas burner operator at [facility] COVID 19 Asymptomatic IH [id number] 10:20:00* Test Item Value Reference Range Interpretation [...] perform moderate, high or waivedcomplexity tests. GLUCOSE [id number] 08:37:00* Test Item Value Reference Range Interpretation Comme nts GLUCOSE BEDSIDE (test code = GLUBED) 84 MG/DL 70-110 N Performed by cer tified gas burner operator at [facility] BASIC METABOLIC [id number] 07:38:00* Test Item Value Reference Range Interpretation [...] = CA) 9.1 mg/dL 8.0-10.5 N GLUCOSE [id number] 21:33:00* Test Item Value Reference Range Interpretation Comme nts GLUCOSE BEDSIDE (test code = GLUBED) 119 MG/DL 70-110 H Performed by cer tified gas burner operator at [facility] GLUCOSE [id number] 18:12:00* Test Item Value Reference Range Interpretation Comme nts GLUCOSE BEDSIDE (test code = GLUBED) 170 MG/DL 70-110 H Performed by cer tified gas burner operator at [facility] GLUCOSE [id number] 12:51:00* Test Item Value Reference Range Interpretation Comme nts GLUCOSE BEDSIDE (test code = GLUBED) 200 MG/DL 70-110 H Performed by cer tified gas burner operator at [facility] GLUCOSE [id number] 08:19:00* Test Item Value Reference Range Interpretation Comme nts GLUCOSE BEDSIDE (test code = GLUBED) 105 MG/DL 70-110 N Performed by cer arlene gas burner operator at [facility] BASIC METABOLIC [id number] 04:05:00* Test Item Value Reference Range Interpretation [...] code = CA) 9.4 mg/dL 8.0-10.5 N [id number] 04:05:00* Test Item Value Reference Range Interpretation Comme nts MAGNESIUM (test code = MAG) 1.86 mg/dL 1.80-2.40 N CBC W/AUTO [id number] 03:38:00* Test Item Value Reference Range Interpretation [...] ode = MDIFF) NO - DUP VEIN [id number] 00:00:00 [facility] : 1945 Sex: F Name: KIAH GILES [facility] [place] : 1945 Age/S: 76 / F [address] [place] [address] Unit #: [id number] Loc: [place] [address] Phys: Kena Macedo NP Acct: [id number] Dis Date: Status: ADM IN PHONE #: [phone] Exam Date: 01/06/2022 06 FAX #: [phone] Reason: R/O DVT EXAMS: CPT CODE: [id number] DUP VEIN RAJAN 56236 PROCEDURE INFORMATION: Exam: US Duplex Lower Extremity [...] patent without thrombus. Normal Doppler waveforms. Normal c ompressibility and/or augmentation response. Left superficial veins: Saphenofemoral junction is patent without thrombus. Soft tissues: Unremarkable. IMPRESSION: No evidence of deep vein thrombosis. at 0627 Reported and signed by: Boo Clay M.D. CC: Jeffry Hsu MD; Abdiaziz Fuchs MD; Kena Francois NP; Colt Vail MD Technologist: Silke Vee RDMS(AB)(OB) Trnndb Date/Time: 01/06/2022 (626) [email or web address] Orig Print D/T: S: 01/06/2022 (626) Probe: PAGE 1 Signed ReportGLUCOSE [id number] 20:46:00* Test Item Value Reference Range Interpretation Comme nts GLUCOSE BEDSIDE (test code = GLUBED) 162 MG/DL 70-110 H Performed by cer tified gas burner operator at [facility] GLUCOSE [id number] 17:16:00* Test Item Value Reference Range Interpretation Comme nts GLUCOSE BEDSIDE (test code = GLUBED) 140 MG/DL 70-110 H Performed by cer tified gas burner operator at [facility] GLUCOSE [id number] 12:54:00* Test Item Value Reference Range Interpretation Comme nts GLUCOSE BEDSIDE (test code = GLUBED) 215 MG/DL 70-110 H Performed by cer tified gas burner operator at [facility] GLUCOSE [id number] 10:11:00* Test Item Value Reference Range Interpretation Comme nts GLUCOSE BEDSIDE (test code = GLUBED) 104 MG/DL 70-110 N Performed by cer tified gas burner operator at [facility] CBC W/AUTO [id number] 04:30:00* Test Item Value Reference Range Interpretation [...] c ode = MDIFF) NO BASIC METABOLIC [id number] 03:15:00* Test Item Value Reference Range Interpretation [...] code = CA) 9.4 mg/dL 8.0-10.5 N [id number] 03:15:00* Test Item Value Reference Range Interpretation Comme nts MAGNESIUM (test code = MAG) 1.91 mg/dL 1.80-2.40 N GLUCOSE [id number] 23:31:00* Test Item Value Reference Range Interpretation Comme nts GLUCOSE BEDSIDE (test code = GLUBED) 259 MG/DL 70-110 H Performed by cer tified gas burner operator at [facility] GLUCOSE [id number] 10:26:00* Test Item Value Reference Range Interpretation Comme nts GLUCOSE BEDSIDE (test code = GLUBED) 141 MG/DL 70-110 H Performed by cer tified gas burner operator at [facility] GLUCOSE [id number] 07:59:00* Test Item Value Reference Range Interpretation Comme nts GLUCOSE BEDSIDE (test code = GLUBED) 87 MG/DL 70-110 N Performed by cer tified gas burner operator at [facility] BASIC METABOLIC [id number] 04:06:00* Test Item Value Reference Range Interpretation [...] code = CA) 9.8 mg/dL 8.0-10.5 N [id number] 04:06:00* Test Item Value Reference Range Interpretation Comme nts MAGNESIUM (test code = MAG) 2.02 mg/dL 1.80-2.40 N CBC W/AUTO [id number] 03:56:00* Test Item Value Reference Range Interpretation [...] = MDIFF) NO - XR CHEST 1 [id number] 00:00:00 [facility] : 1945 Sex: F FAX: Jeffry Pennington MD [phone] [place]: St: ADM FAX: Abdiaziz Christiansen MD [phone] FAX: René Blancas [phone] FAX: Colt Aguillon MD [phone] Name: KIAH GILES [facility] : 1945 Age/S: 76/F [address] [place] [address] Unit #: [id number] Loc: [address] [place] [address] Phys: René Villareal MD Acct: [id number] Dis Date: Status: ADM IN PHONE #: [phone] Exam Date: 01/04/2022711 FAX #: [phone] Reason: R/O PLEURAL EFFUSION EXAMS: CPT CODE: [id number] XR CHEST 1V 59478 PROCEDURE INFORMATION: Exam: XR Chest Exam date and time: 01/04/2022 6:50 AM Age: 76 years old Clinical indication: Other: R/O pleural effusion TECHNIQUE: Imaging protocol: Radiologic exam ofthe chest. Views: 1 view. COMPARISON: CR XR CHEST 1V 01/03/2022 6:43 AM FINDINGS: Tubes, catheters a nd devices: Stable pacemaker. Lungs: Mild worsening right basilar opacities. There could be a smallright pleural effusion. The other lung opacities are stable. There could be a small left pleural effusion, stable. Pleural spaces: See "Lungs" finding. Heart/Mediastinum: Stable enlarged heart size. Vasculature: Atherosclerotic calcifications. Bones/joints: Stable. Median sternotomy wires. IMPRESSION: Mild worsening right basilar opacities. Otherwise, stable exam. at 0812 Reported and signed by: Mark Anthony Willis M.D. CC: Jeffry Hsu MD; Abdiaziz Fuchs MD; René Villareal MD; Colt Vail MD Technologist: Demetra Roberto RT(R) Trnscrd Date/Time/By: 01/04/2022 (811) : By: [email or web address] Orig Print D/T: S: 01/04/2022 (812) PAGE 1Signed ReportGLUCOSE [id number] 20:26:00* Test Item Value Reference Range Interpretation Comme nts GLUCOSE BEDSIDE (test code = GLUBED) 117 MG/DL 70-110 H Performed by cer tified gas burner operator at [facility] GLUCOSE [id number] 16:49:00* Test Item Value Reference Range Interpretation Comme nts GLUCOSE BEDSIDE (test code = GLUBED) 180 MG/DL 70-110 H Performed by cer tified gas burner operator at [facility] GLUCOSE [id number] 12:43:00* Test Item Value Reference Range Interpretation Comme nts GLUCOSE BEDSIDE (test code = GLUBED) 189 MG/DL 70-110 H Performed by cer tified gas burner operator at [facility] GLUCOSE [id number] 07:40:00* Test Item Value Reference Range Interpretation Comme nts GLUCOSE BEDSIDE (test code = GLUBED) 96 MG/DL 70-110 N Performed by cer tified gas burner operator at [facility] BASIC METABOLIC [id number] 05:21:00* Test Item Value Reference Range Interpretation [...] code = CA) 9.8 mg/dL 8.0-10.5 N [id number] 05:21:00* Test Item Value Reference Range Interpretation Comme nts MAGNESIUM (test code = MAG) 2.20 mg/dL 1.80-2.40 N CBC W/AUTO [id number] 05:15:00* Test Item Value Reference Range Interpretation [...] = MDIFF) NO - XR CHEST 1 [id number] 00:00:00 [facility] : 1945 Sex: F FAX: Jeffry Pennington MD [phone] [place]: St: ADM FAX: Abdiaziz Christiansen MD [phone] FAX: René Blancas [phone] FAX: Colt Aguillon MD [phone] Name: KIAH GILES [facility] : 1945 Age/S: 76/F [address] [place] [address] Unit #: [id number] Loc: [address] [place] [address] Phys: René Villareal MD Acct: [id number] Dis Date: Status: ADM IN PHONE #: [phone] Exam Date: 01/03/2022 0645 FAX #: [phone] Reason: R/O PLEURAL EFFUSION EXAMS: CPT CODE: [id number] XR CHEST 1 [id number] PROCEDURE INFORMATION: Exam: XR Chest Exam date [...] MG/DL 70-110 H Performed by cer tified gas burner operator at [facility] GLUCOSE [id number] 17:13:00* Test Item Value Reference Range Interpretation Comme nts GLUCOSE BEDSIDE (test code = GLUBED) 164 MG/DL 70-110 H Performed by cer tified gas burner operator at [facility] GLUCOSE [id number] 12:25:00* Test Item Value Reference Range Interpretation Comme nts GLUCOSE BEDSIDE (test code = GLUBED) 190 MG/DL 70-110 H Performed by cer tified gas burner operator at [facility] GLUCOSE [id number] 09:11:00* Test Item Value Reference Range Interpretation Comme nts GLUCOSE BEDSIDE (test code = GLUBED) 207 MG/DL 70-110 H Performed by [facility] tified gas burner operator at [facility] BASIC METABOLIC [id number] 04:53:00* Test Item Value Reference Range Interpretation [...] code = CA) 9.8 mg/dL 8.0-10.5 N [id number] 04:53:00* Test Item Value Reference Range Interpretation Comme nts MAGNESIUM (test code = MAG) 2.02 mg/dL 1.80-2.40 N CBC W/AUTO [id number] 04:33:00* Test Item Value Reference Range Interpretation [...] ode = MDIFF) NO POC ARTERIAL BLOOD [id number] 04:18:00* Test Item Value Reference Range Interpretation Comme nts POC ARTERIAL BLOOD GAS PH (t est code = POCPHA) 7.351 7.35-7.45 N POC ARTERIAL BLOOD GAS PCO2 (test code = IUWMGK9D) 69.0 mmHg 35.0-45 HH POC TCO2 ARTERIAL (test code = POCTCO2) 40.5 POC ARTERIAL BLOOD GAS PO2 ( test code = SOWVY5P) 94.8 mmHg 80-100.0 N POC HCO3 ARTERIAL (test code = NQRQCH8G) 38.4 MMOL/L 22.0-26.0 HH POC BASE EXCESS (test code = POCBEA) 12.7 MMOL/L -4.0-4.0 H POC O2 SATURATION (test code = POCO2S) 96.7 % 90-100 N ABG DELIVERY (test code = MAAME) Cannula ABG TEMPERATURE (test code = TEMPA) 98 F ABG SITE (test code = SITEA) Art Line MARTIN'S TEST (test code = ALLENS) N/A BASIC METABOLIC [id number] 04:18:00* Test Item Value Reference Range Interpretation [...] = POCGLU) 157 MG/DL 70-110 H HEMOGLOBIN [id number] 04:18:00* Test Item Value Reference Range Interpretation Comme nts HEMOGLOBIN ABG (test code = HGB/ABG) 9.3 G/DL 11.0-15.0 L [id number] 04:18:00* Test Item Value Reference Range Interpretation Comme nts HEMATOCRIT (test code = HCT/ABG) 27 % 33.0-45.0 L POC LACTIC [id number] 04:18:00* Test Item Value Reference Range Interpretation Comme nts POC LACTIC ACID (test code = POCLAC) 0.6 mmol/l 0.9-1.7 L - XR CHEST 1 [id number] 00:00:00 [facility] : 1945 Sex: F FAX: Jeffry Pennington MD [phone] [place]: St: ADM FAX: Abdiaziz Christiansen MD [phone] FAX: Solange Sawyer MD [phone] FAX: Colt Aguillon MD [phone] Name: KIAH GILES [facility] : 1945 Age/S: 76/F [address] [place] [address] Unit #: [id number] Loc: [address] [address] Phys: Solange Mohamud MD Acct: [id number] Dis Date: Status: ADM IN PHONE #: [phone] Exam Date: 01/02/2022530 FAX #: [phone] Reason: POST-OP CV SURGERY EXAMS: CPT CODE: [id number] XR CHEST 1 V 29034 PROCEDURE INFORMATION: Exam: XR Chest Exam date [...] Mohamud MD; Colt Vail MD Technologist: RT Jose(R) Trnscrd Date/Time/By: 01/02/2022 (800) : By: [email or web address] Orig Print D/T: S: 01/02/2022 (800) PAGE 1 Signed ReportGLUCOSE [id number] 21:48:00* Test Item Value Reference Range Interpretation Comme nts GLUCOSE BEDSIDE (test code = GLUBED) 196 MG/DL 70-110 H Performed by cer tified gas burner operator at [facility] GLUCOSE [id number] 18:21:00* Test Item Value Reference Range Interpretation Comme nts GLUCOSE BEDSIDE (test code = GLUBED) 218 MG/DL 70-110 H Performed by cer tified gas burner operator at [facility] GLUCOSE [id number] 12:23:00* Test Item Value Reference Range Interpretation Comme nts GLUCOSE BEDSIDE (test code = GLUBED) 191 MG/DL 70-110 H Performed by cer tified gas burner operator at [facility] GLUCOSE [id number] 08:52:00* Test Item Value Reference Range Interpretation Comme nts GLUCOSE BEDSIDE (test code = GLUBED) 95 MG/DL 70-110 N Performed by cer tified gas burner operator at [facility] POC ARTERIAL BLOOD [id number] 06:26:00* Test Item Value Reference Range Interpretation Comme nts POC ARTERIAL BLOOD GAS PH (t est code = POCPHA) 7.380 7.35-7.45 N POC ARTERIAL BLOOD GAS PCO2 (test code = CCQBBU9R) 65.2 mmHg 35.0-45 HH POC TCO2 ARTERIAL (test code = POCTCO2) 40.8 POC ARTERIAL BLOOD GAS PO2 ( test code = PLHEG0Z) 98.3 mmHg 80-100.0 N POC HCO3 ARTERIAL (test code = IBWPBB1R) 38.8 MMOL/L 22.0-26.0 HH POC BASE EXCESS (test code = POCBEA) 13.5 MMOL/L -4.0-4.0 H POC O2 SATURATION (test code = POCO2S) 97.3 % 90-100 N FIO2 (test code = FIO2A) 40 % PaO2/FiO2 (test code = NPT1III7) 245.75 mm/Hg ABG DELIVERY (test code = [...] (test code = ALLENS) N/A BASIC METABOLIC [id number] 06:26:00* Test Item Value Reference Range Interpretation [...] = POCGLU) 90 MG/DL 70-110 N HEMOGLOBIN [id number] 06:26:00* Test Item Value Reference Range Interpretation Comme nts HEMOGLOBIN ABG (test code = HGB/ABG) 8.1 G/DL 11.0-15.0 L [id number] 06:26:00* Test Item Value Reference Range Interpretation Comme nts HEMATOCRIT (test code = HCT/ABG) 24 % 33.0-45.0 L POC LACTIC [id number] 06:26:00* Test Item Value Reference Range Interpretation Comme nts POC LACTIC ACID (test code = POCLAC) 0.4 mmol/l 0.9-1.7 L BASIC METABOLIC [id number] 04:01:00* Test Item Value Reference Range Interpretation [...] code = CA) 9.5 mg/dL 8.0-10.5 N [id number] 04:01:00* Test Item Value Reference Range Interpretation Comme nts MAGNESIUM (test code = MAG) 1.92 mg/dL 1.80-2.40 N CBC W/AUTO [id number] 03:40:00* Test Item Value Reference Range Interpretation [...] = MDIFF) NO - XR CHEST 1 [id number] 00:00:00 [facility] : 1945 Sex: F FAX: Jeffry Pennington MD [phone] [place]: GC St: ADM FAX: Abdiaziz Christiansen MD [phone] FAX: Solange Sawyer MD [phone] FAX: Colt Aguillon MD [phone] Name: KIAH GILES [facility] : 1945 Age/S: 76/F [address] [place] [address] Unit #: [id number] Loc: G[address] [place] [address] Phys: Solange Mohamud MD Acct: [id number] Dis Date: Status: ADM IN PHONE #: [phone] Exam Date: 01/01/2022641 FAX #: [phone] Reason: POST-OP CV SURGERY EXAMS: CPT CODE: [id number] XR CHEST 1 V 48995 PROCEDURE INFORMATION: Exam: XR Chest Exam date [...] silhouette. at 0702 Reported and signed by: Mike Carlisle M.D. CC: Jeffry Hsu MD; Abdiaziz Fuchs MD; Solange Mohamud MD; Colt Vail MD Technologist: RT Joe(R) Trnscrd Date/Time/By: 01/01/2022 (701) : By: AureliaKWL Orig Print D/T: S: 01/01/2022 (701) PAGE 1 Signed ReportPO ARTERIAL BLOOD [id number] 20:21:00* Test Item Value Reference Range Interpretation Comme nts POC ARTERIAL BLOOD GAS PH (t est code = POCPHA) 7.396 7.35-7.45 N POC ARTERIAL BLOOD GAS PCO2 (test code = KZGEJA0Y) 59.8 mmHg 35.0-45 HH POC TCO2 ARTERIAL (test code = POCTCO2) 38.8 POC ARTERIAL BLOOD GAS PO2 ( test code = NNQXK8I) 75.7 mmHg 80-100.0 L POC HCO3 ARTERIAL (test code = UOEWIB0L) 36.9 MMOL/L 22.0-26.0 HH POC BASE EXCESS (test code = POCBEA) 11.9 MMOL/L -4.0-4.0 H POC O2 SATURATION (test code = POCO2S) 94.9 % 90-100 N ABG DELIVERY (test code = MAAME) Cannula ABG TEMPERATURE (test code = TEMPA) 97.5 F ABG SITE (test code = SITEA) Art Line MARTIN'S TEST (test code = ALLENS) N/A BASIC METABOLIC [id number] 20:21:00* Test Item Value Reference Range Interpretation [...] = POCGLU) 190 MG/DL 70-110 H HEMOGLOBIN [id number] 20:21:00* Test Item Value Reference Range Interpretation Comme nts HEMOGLOBIN ABG (test code = HGB/ABG) 8.7 G/DL 11.0-15.0 L [id number] 20:21:00* Test Item Value Reference Range Interpretation Comme nts HEMATOCRIT (test code = HCT/ABG) 26 % 33.0-45.0 L POC LACTIC [id number] 20:21:00* Test Item Value Reference Range Interpretation Comme nts POC LACTIC ACID (test code = POCLAC) 1.0 mmol/l 0.9-1.7 N POC ARTERIAL BLOOD [id number] 16:38:00* Test Item Value Reference Range Interpretation Comme nts POC ARTERIAL BLOOD GAS PH (t est code = POCPHA) 7.402 7.35-7.45 N POC ARTERIAL BLOOD GAS PCO2 (test code = QHUPUS2D) 57.4 mmHg 35.0-45 HH POC TCO2 ARTERIAL (test code = POCTCO2) 37.7 POC ARTERIAL BLOOD GAS PO2 ( test code = XLABJ4N) 45.7 mmHg 80-100.0 LL POC HCO3 ARTERIAL (test code = YSZXMK9C) 35.9 MMOL/L 22.0-26.0 HH POC BASE EXCESS (test code = POCBEA) 11.0 MMOL/L -4.0-4.0 H POC O2 SATURATION (test code = POCO2S) 81.8 % 90-100 L FIO2 (test code = FIO2A) 32 % PaO2/FiO2 (test code = ZIA6LSX8) 142.81 mm/Hg ABG TEMPERATURE (test code = TEMPA) 97.3 F ABG SITE (test code = SITEA) Art Line BASIC METABOLIC [id number] 16:38:00* Test Item Value Reference Range Interpretation [...] = POCGLU) 313 MG/DL 70-110 H HEMOGLOBIN [id number] 16:38:00* Test Item Value Reference Range Interpretation Comme nts HEMOGLOBIN ABG (test code = HGB/ABG) 9.3 G/DL 11.0-15.0 L [id number] 16:38:00* Test Item Value Reference Range Interpretation Comme nts HEMATOCRIT (test code = HCT/ABG) 27 % 33.0-45.0 L POC LACTIC [id number] 16:38:00* Test Item Value Reference Range Interpretation Comme nts POC LACTIC ACID (test code = POCLAC) 1.0 mmol/l 0.9-1.7 N GLUCOSE [id number] 12:28:00* Test Item Value Reference Range Interpretation Comme nts GLUCOSE BEDSIDE (test code = GLUBED) 149 MG/DL 70-110 H Performed by cer tified gas burner operator at [facility] CBC W/AUTO [id number] 11:32:00* Test Item Value Reference Range Interpretation [...] (test c ode = MDIFF) NO RBC [id number] 11:32:00* Test Item Value Reference Range Interpretation Comme nts ANISOCYTOSIS (test code = ANISO) 1+ POLYCHROMASIA (test code = POLC) 2+ HYPOCHROMIA (test code = HYPO) 1+ MACROCYTOSIS (test code = MACR) 1+ ROULEAUX (test code = ROU) 2+ POC ARTERIAL BLOOD [id number] 09:54:00* Test Item Value Reference Range Interpretation Comme nts POC ARTERIAL BLOOD GAS PH (t est code = POCPHA) 7.445 7.35-7.45 N POC ARTERIAL BLOOD GAS PCO2 (test code = NKOGDK1S) 50.2 mmHg 35.0-45 HH POC TCO2 ARTERIAL (test code = POCTCO2) 36.3 POC ARTERIAL BLOOD GAS PO2 ( test code = OVERK5K) 41.6 mmHg 80-100.0 LL POC HCO3 ARTERIAL (test code = WMSBYW5T) 34.7 MMOL/L 22.0-26.0 HH POC BASE EXCESS (test code = POCBEA) 10.5 MMOL/L -4.0-4.0 H POC O2 SATURATION (test code = POCO2S) 80.0 % 90-100 L FIO2 (test code = FIO2A) 24 % PaO2/FiO2 (test code = GYL0WBO1) 173.33 mm/Hg ABG TEMPERATURE (test code = TEMPA) 97.2 F ABG SITE (test code = SITEA) Art Line BASIC METABOLIC [id number] 09:54:00* Test Item Value Reference Range Interpretation [...] = POCGLU) 175 MG/DL 70-110 H HEMOGLOBIN [id number] 09:54:00* Test Item Value Reference Range Interpretation Comme nts HEMOGLOBIN ABG (test code = HGB/ABG) 9.4 G/DL 11.0-15.0 L [id number] 09:54:00* Test Item Value Reference Range Interpretation Comme nts HEMATOCRIT (test code = HCT/ABG) 28 % 33.0-45.0 L POC LACTIC [id number] 09:54:00* Test Item Value Reference Range Interpretation Comme nts POC LACTIC ACID (test code = POCLAC) 0.8 mmol/l 0.9-1.7 L POC ARTERIAL BLOOD [id number] 08:57:00* Test Item Value Reference Range Interpretation Comme nts POC ARTERIAL BLOOD GAS PH (t est code = POCPHA) 7.444 7.35-7.45 N POC ARTERIAL BLOOD GAS PCO2 (test code = EMSDYJ7O) 50.4 mmHg 35.0-45 HH POC TCO2 ARTERIAL (test code = POCTCO2) 36.1 POC ARTERIAL BLOOD GAS PO2 ( test code = FRADA8R) 33.9 mmHg 80-100.0 LL POC HCO3 ARTERIAL (test code = HAHHDH6Q) 34.6 MMOL/L 22.0-26.0 HH POC BASE EXCESS (test code = POCBEA) 10.5 MMOL/L -4.0-4.0 H POC O2 SATURATION (test code = POCO2S) 66.6 % 90-100 L ABG DELIVERY (test code = MAAME) Room Air BASIC METABOLIC [id number] 08:57:00* Test Item Value Reference Range Interpretation [...] = POCGLU) 125 MG/DL 70-110 H HEMOGLOBIN [id number] 08:57:00* Test Item Value Reference Range Interpretation Comme nts HEMOGLOBIN ABG (test code = HGB/ABG) 9.4 G/DL 11.0-15.0 L [id number] 08:57:00* Test Item Value Reference Range Interpretation Comme nts HEMATOCRIT (test code = HCT/ABG) 28 % 33.0-45.0 L POC LACTIC [id number] 08:57:00* Test Item Value Reference Range Interpretation Comme nts POC LACTIC ACID (test code = POCLAC) 0.9 mmol/l 0.9-1.7 N GLUCOSE [id number] 08:05:00* Test Item Value Reference Range Interpretation Comme nts GLUCOSE BEDSIDE (test code = GLUBED) 82 MG/DL 70-110 N Performed by cer arlene gas burner operator at [facility] BASIC METABOLIC [id number] 04:53:00* Test Item Value Reference Range Interpretation [...] code = CA) 9.8 mg/dL 8.0-10.5 N [id number] 04:53:00* Test Item Value Reference Range Interpretation Comme nts MAGNESIUM (test code = MAG) 2.24 mg/dL 1.80-2.40 POC ARTERIAL BLOOD [id number] 04:37:00* Test Item Value Reference Range Interpretation Comme [facility] POC ARTERIAL BLOOD GAS PH (t est code = POCPHA) 7.393 7.35-7.45 N POC ARTERIAL BLOOD GAS PCO2 (test code = GDDYGC9S) 66.2 mmHg 35.0-45 HH POC TCO2 ARTERIAL (test code = POCTCO2) 42.5 POC ARTERIAL BLOOD GAS PO2 ( test code = ADTGR1C) 93.0 mmHg 80-100.0 N POC HCO3 ARTERIAL (test code = OYKYAZ9B) 40.4 MMOL/L 22.0-26.0 HH POC BASE EXCESS (test code = POCBEA) 15.5 MMOL/L -4.0-4.0 H POC O2 SATURATION (test code = POCO2S) 96.8 % 90-100 N ABG DELIVERY (test code = MAAME) Cannula ABG TEMPERATURE (test code = TEMPA) 98.2 F ABG SITE (test code = SITEA) Art Line BASIC METABOLIC [id number] 04:37:00* Test Item Value Reference Range Interpretation [...] = POCGLU) 83 MG/DL 70-110 N HEMOGLOBIN [id number] 04:37:00* Test Item Value Reference Range Interpretation Comme nts HEMOGLOBIN ABG (test code = HGB/ABG) 15.1 G/DL 11.0-15.0 H [id number] 04:37:00* Test Item Value Reference Range Interpretation Comme nts HEMATOCRIT (test code = HCT/ABG) 44 % 33.0-45.0 N POC LACTIC [id number] 04:37:00* Test Item Value Reference Range Interpretation Comme nts POC LACTIC ACID (test code = POCLAC) 0.7 mmol/l 0.9-1.7 L - XR CHEST 1 [id number] 00:00:00 [facility] 1945 Sex: F FAX: Jeffry Pennington MD [phone] [place]: St: ADM FAX: Abdiaziz Christiansen MD [phone] FAX: Solange Sweeney MD [phone] FAX: Colt Aguillon MD [phone] Name: KIAH GILES [facility] : 1945 Age/S: 76/F [address] [place] [address] Unit #: [id number] Loc: [address] [address] Phys: Solange Mohamud MD Acct: [id number] Dis Date: Status: ADM IN PHONE #: [phone] Exam Date: 628 FAX #: [phone] Reason: POST-OP CV SURGERY EXAMS: CPT CODE: [id number] XR CHEST 1 V 48781 PROCEDURE INFORMATION: Exam: XR Chest Exam date [...] MD Technologist: RT Caroline(R) Trnscrd Date/Time/By: 12/31/2021 (706) : By: AureliaKWL Orig Print D/T: S: 12/31/2021 (08) PAGE 1 Signed ReportGLUCOSE [id number] 21:23:00* Test Item Value Reference Range Interpretation Comme nts GLUCOSE BEDSIDE (test code = GLUBED) 189 MG/DL 70-110 H Performed by cer tified gas burner operator at [facility] BASIC METABOLIC [id number] 19:24:00* Test Item Value Reference Range Interpretation [...] code = CA) 9.8 mg/dL 8.0-10.5 N [id number] 19:24:00* Test Item Value Reference Range Interpretation Comme nts MAGNESIUM (test code = MAG) 1.84 mg/dL 1.80-2.40 GLUCOSE [id number] 17:33:00* Test Item Value Reference Range Interpretation Comme nts GLUCOSE BEDSIDE (test code = GLUBED) 213 MG/DL 70-110 H Performed by cer tified gas burner operator at [facility] GLUCOSE [id number] 12:11:00* Test Item Value Reference Range Interpretation Comme nts GLUCOSE BEDSIDE (test code = GLUBED) 146 MG/DL 70-110 H Performed by cer tified gas burner operator at [facility] POC ARTERIAL BLOOD [id number] 11:42:00* Test Item Value Reference Range Interpretation Comme nts POC ARTERIAL BLOOD GAS PH (t est code = POCPHA) 7.373 7.35-7.45 N POC ARTERIAL BLOOD GAS PCO2 (test code = UXYKNK6K) 60.9 mmHg 35.0-45 HH POC TCO2 ARTERIAL (test code = POCTCO2) 37.3 POC ARTERIAL BLOOD GAS PO2 ( test code = LHJWL1J) 57.7 mmHg 80-100.0 L POC HCO3 ARTERIAL (test code = DTTRME4U) 35.5 MMOL/L 22.0-26.0 HH POC BASE EXCESS (test code = POCBEA) 10.2 MMOL/L -4.0-4.0 H POC O2 SATURATION (test code = POCO2S) 87.8 % 90-100 L ABG DELIVERY (test code = MAAME) HFNC ABG TEMPERATURE (test code = TEMPA) 98.6 F ABG SITE (test code = SITEA) L Radial MARTIN'S TEST (test code = ALLENS) N/A BASIC METABOLIC [id number] 11:42:00* Test Item Value Reference Range Interpretation [...] = POCGLU) 103 MG/DL 70-110 N HEMOGLOBIN [id number] 11:42:00* Test Item Value Reference Range Interpretation Comme nts HEMOGLOBIN ABG (test code = HGB/ABG) 8.3 G/DL 11.0-15.0 L [id number] 11:42:00* Test Item Value Reference Range Interpretation Comme nts HEMATOCRIT (test code = HCT/ABG) 24 % 33.0-45.0 L POC LACTIC [id number] 11:42:00* Test Item Value Reference Range Interpretation Comme nts POC LACTIC ACID (test code = POCLAC) 0.7 mmol/l 0.9-1.7 L BASIC METABOLIC [id number] 05:54:00* Test Item Value Reference Range Interpretation [...] code = CA) 9.9 mg/dL 8.0-10.5 N [id number] 05:54:00* Test Item Value Reference Range Interpretation Comme nts MAGNESIUM (test code = MAG) 2.23 mg/dL 1.80-2.40 N CBC W/AUTO [id number] 05:01:00* Test Item Value Reference Range Interpretation [...] ode = MDIFF) NO POC ARTERIAL BLOOD [id number] 04:58:00* Test Item Value Reference Range Interpretation Comme nts POC ARTERIAL BLOOD GAS PH (t est code = POCPHA) 7.355 7.35-7.45 N POC ARTERIAL BLOOD GAS PCO2 (test code = BSXFTC8L) 68.7 mmHg 35.0-45 HH POC TCO2 ARTERIAL (test code = POCTCO2) 40.8 POC ARTERIAL BLOOD GAS PO2 ( test code = IPGWS3T) 61.3 mmHg 80-100.0 L POC HCO3 ARTERIAL (test code = ZPRXZI3F) 38.7 MMOL/L 22.0-26.0 HH POC BASE EXCESS (test code = POCBEA) 12.9 MMOL/L -4.0-4.0 H POC O2 SATURATION (test code = POCO2S) 89.8 % 90-100 L FIO2 (test code = FIO2A) 40 % PaO2/FiO2 (test code = MZY9LGB9) 153.25 mm/Hg ABG DELIVERY (test code = MAAME) BiPAP ABG VENT RESP RATE (test cod e = RRA) 20 /MIN ABG PEEP (test code = PEEPA) 8 cmH2O ABG TEMPERATURE (test code = TEMPA) 97.2 F ABG SITE (test code = SITEA) Art Line BASIC METABOLIC [id number] 04:58:00* Test Item Value Reference Range Interpretation [...] = POCGLU) 112 MG/DL 70-110 H HEMOGLOBIN [id number] 04:58:00* Test Item Value Reference Range Interpretation Comme nts HEMOGLOBIN ABG (test code = HGB/ABG) 7.6 G/DL 11.0-15.0 L [id number] 04:58:00* Test Item Value Reference Range Interpretation Comme nts HEMATOCRIT (test code = HCT/ABG) 22 % 33.0-45.0 L POC LACTIC [id number] 04:58:00* Test Item Value Reference Range Interpretation Comme nts POC LACTIC ACID (test code = POCLAC) 0.5 mmol/l 0.9-1.7 L - CT CHEST W/O [id number] 00:00:00 [facility] : 1945 Sex: F Name: KIAH GILES [facility] : 1945 Age/S: 76 / F [address] [place] [address] Unit #: [id number] Loc: [place] [address] Phys: Kena Macedo VESSEL MASTER Acct: [id number] Dis Date: Status: ADM IN PHONE #: [phone] Exam Date: 12/30/2021 1316 FAX #: [phone] Reason: EVAL WORSENING PULM OPPACITIES EXAMS: CPT CODE: [id number] CT CHEST W/O CONTRAST 85856 PROCEDURE INFORMATION: Exam: CT Chest Without Contrast; [...] at 28 Hounsfield units. Lymph nodes: Unremarkable. Noenlarged lymph nodes. Vasculature: Unremarkable. No aortic aneurysm. Bones/joints: Median sternotomy is well approximated. No bone destructive changes. Soft tissues: Midline skin incision is well approximated. No chest wall fluid collection. IMPRESSION: PAGE 1 Signed Report (CONTINUED) Name: KIAH GILES [facility] : 1945 Age/S: 76 / F [address] [place] [address] Unit #: [id number] Loc: [place] [address] Phys: Kena Macedo VESSEL MASTER Acct: [id number] Dis Date: Status: ADM IN PHON E #: [phone] Exam Date: 12/30/2021 1316 FAX #: [phone] Reason: EVAL WORSENING PULM OPPACITIES EXAMS: CPT CODE: [id number] CT CHEST W/O CONTRAST 07663 (Continued) 1. Bilateral multifocal ground-glass pulmonary opacities [...] Expert Consensus Statement on Reporting Chest CT FindingsRelated to COVID-19. Endorsed by the Society of Thoracic Radiology, the [place], and RSNA. Published June 07, 2019. at 1433 Reported and signed by: Jasmeet Carlisle M.D. CC: Jeffry Hsu MD; Abdiaziz Fuchs MD; Kena Francois VESSEL MASTER; Colt Vail MD Technologist:Ming Chapman, RT(R)(CT) CTDI: DLP: Trnscb Date/Time: 12/30/2021 (1432) tTULIOKWL Orig Print D/T: S: 12/30/2021 (116) PAGE 2 Signed Report- XR CHEST 1 [id number] 00:00:00 [facility] : 1945 Sex: F FAX: Jeffry Pennington MD [phone] [place]: St: ADM FAX: Abdiaziz Christiansen MD [phone] FAX: Solange Sweeney MD [phone] FAX: Colt Aguillon MD [phone] Name: KIAH GILES [facility] [place] : 1945 Age/S: 76/F [address] [place] [address] Blvd Unit #: [id number] Loc: G.[address] [place] [address] Phys: Solange Mohamud MD Acct: [id number] Dis Date: Status: ADM IN PHONE #: [phone] Exam Date: 12/30/2021611 FAX #: [phone] Reason: POST-OP CV SURGERY EXAMS: CPT CODE: [id number] XR CHEST 1 V [id number] INFORMATION: Exam: XR Chest Exam date and time: 12/30/2021 4:58 AM Age: 76 years old Clinical indication: Other: Post-op cv surgery TECHNIQUE: Imaging protocol: Radiologic exam of the chest. Views: 1 view. COMPARISON: 1. CR XR CHEST 1V 12/29/2021 5:18 AM 2. CR XR CHEST 1V 12/28/2021 5:57AM 3. CR XR CHEST 1V 12/27/2021 5:54 AM FINDINGS: Tubes, catheters and devices: Pacemaker/ICD leadsare stable. Mitral valve prosthesis is stable. EKG [...] of the cardiomediastinal silhouette is grossly stable allowingfor patient rotation. Pulmonary vasculature is predominantly obscured. Bones/joints: Sternotomy wires are intact. IMPRESSION: 1. Bilateral pulmonary opacities with multifocal airspace disease. Progression of disease in the right upper lobe. Edema and pneumonia in the differential. 2. Stable pleuraleffusions with bibasilar atelectasis and or airspace disease. at 0706 Reported and signed by: Jasmeet Carlisle M.D. PAGE 1 Signed Report (CONTINUED) FAX: Jeffry Pennington MD [phone] [place]: St: ADM FAX: Abdiaziz Christiansen [facility] [phone] FAX: Solange Sawyer MD [phone] FAX: Colt Aguillon MD [phone] ------- Name: KIAH GILES [facility] : 1945 Age/S: 76/F [address] [place] [address] Unit #: [id number] Loc: [address] [place] [address] Phys: Solange Mohamud MD Acct: [id number] Dis Date: Status: ADM IN PHONE #: [phone] Exam Date: 12/30/2021611 FAX #: [phone] Reason: POST-OP CV SURGERY EXAMS: CPT CODE: [id number] XR CHEST 1 V 29614 (Continued) CC: Jeffry Hsu MD; Abdiaziz Fuchs MD; Solange Mohamud MD; Colt Vail MD Technologist: Hali Leon RT(R) Trnscrd Date/Time/By: 12/30/2021 (705) : By: FaisalL Orig Print D/T: S: 12/30/2021 (705) PAGE 2 Signed ReportGLUCOSE [id number] 20:24:00* Test Item Value Reference Range Interpretation Comme nts GLUCOSE BEDSIDE (test code = GLUBED) 185 MG/DL 70-110 H Performed by anna jacobs gas burner operator at [facility] GLUCOSE [id number] 18:05:00* Test Item Value Reference Range Interpretation Comme nts GLUCOSE BEDSIDE (test code = GLUBED) 197 MG/DL 70-110 H Performed by cer [employer] gas burner operator at [facility] BASIC METABOLIC [id number] 12:52:00* Test Item Value Reference Range Interpretation [...] code = CA) 9.5 mg/dL 8.0-10.5 N [id number] 12:52:00* Test Item Value Reference Range Interpretation Comme nts MAGNESIUM (test code = MAG) 2.38 mg/dL 1.80-2.40 N GLUCOSE [id number] 12:29:00* Test Item Value Reference Range Interpretation Comme nts GLUCOSE BEDSIDE (test code = GLUBED) 236 MG/DL 70-110 H Performed by [employer] gas burner operator at [facility] GLUCOSE [id number] 08:29:00* Test Item Value Reference Range Interpretation Comme nts GLUCOSE BEDSIDE (test code = GLUBED) 150 MG/DL 70-110 H Performed by [employer] gas burner operator at [facility] GLUCOSE [id number] 05:47:00* Test Item Value Reference Range Interpretation Comme nts GLUCOSE BEDSIDE (test code = GLUBED) 126 MG/DL 70-110 H Performed by [employer] gas burner operator at [facility] POC ARTERIAL BLOOD [id number] 05:42:00* Test Item Value Reference Range Interpretation Comme [facility] POC ARTERIAL BLOOD GAS PH (t est code = POCPHA) 7.357 7.35-7.45 N POC ARTERIAL BLOOD GAS PCO2 (test code = UWZWCF0E) 71.1 mmHg 35.0-45 HH POC TCO2 ARTERIAL (test code = POCTCO2) 42.4 POC ARTERIAL BLOOD GAS PO2 ( test code = IEFCP3K) 83.8 mmHg 80-100.0 N POC HCO3 ARTERIAL (test code = GYRUTS9F) 40.1 MMOL/L 22.0-26.0 HH POC BASE EXCESS (test code = POCBEA) 14.5 MMOL/L -4.0-4.0 H POC O2 SATURATION (test code = POCO2S) 95.5 % 90-100 N FIO2 (test code = FIO2A) 40 % PaO2/FiO2 (test code = UZL3GPQ1) 209.50 mm/Hg ABG DELIVERY (test code = MAAME) BiPAP ABG TEMPERATURE (test code = TEMPA) 97.5 F ABG SITE (test code = SITEA) Art Line BASIC METABOLIC [id number] 05:42:00* Test Item Value Reference Range Interpretation [...] = POCGLU) 122 MG/DL 70-110 H HEMOGLOBIN [id number] 05:42:00* Test Item Value Reference Range Interpretation Comme nts HEMOGLOBIN ABG (test code = HGB/ABG) 7.8 G/DL 11.0-15.0 L [id number] 05:42:00* Test Item Value Reference Range Interpretation Comme nts HEMATOCRIT (test code = HCT/ABG) 23 % 33.0-45.0 L POC LACTIC [id number] 05:42:00* Test Item Value Reference Range Interpretation Comme nts POC LACTIC ACID (test code = POCLAC) 0.5 mmol/l 0.9-1.7 L [id number] 04:44:00* Test Item Value Reference Range Interpretation Comme nts MAGNESIUM (test code = MAG) 2.29 mg/dL 1.80-2.40 N BASIC METABOLIC [id number] 04:22:00* Test Item Value Reference Range Interpretation [...] CA) 9.5 mg/dL 8.0-10.5 N CBC W/AUTO [id number] 04:12:00* Test Item Value Reference Range Interpretation [...] (test c ode = MDIFF) NO GLUCOSE [id number] 03:12:00* Test Item Value Reference Range Interpretation Comme nts GLUCOSE BEDSIDE (test code = GLUBED) 124 MG/DL 70-110 H Performed by cer tified gas burner operator at [facility] POC ARTERIAL BLOOD [id number] 03:03:00* Test Item Value Reference Range Interpretation Comme nts POC ARTERIAL BLOOD GAS PH (t est code = POCPHA) 7.367 7.35-7.45 N POC ARTERIAL BLOOD GAS PCO2 (test code = GKAKTC0W) 73.2 mmHg 35.0-45 HH POC TCO2 ARTERIAL (test code = POCTCO2) 44.7 POC ARTERIAL BLOOD GAS PO2 ( test code = BXCYC6O) 84.4 mmHg 80-100.0 N POC HCO3 ARTERIAL (test code = XRMRKS2P) 42.4 MMOL/L 22.0-26.0 HH POC BASE EXCESS (test code = POCBEA) 16.9 MMOL/L -4.0-4.0 H POC O2 SATURATION (test code = POCO2S) 95.7 % 90-100 N FIO2 (test code = FIO2A) 40 % PaO2/FiO2 (test code = IYZ8IKE6) 211.00 mm/Hg ABG DELIVERY (test code = MAAME) BiPAP ABG TEMPERATURE (test code = TEMPA) 97.5 F ABG SITE (test code = SITEA) Art Line BASIC METABOLIC [id number] 03:03:00* Test Item Value Reference Range Interpretation [...] = POCGLU) 125 MG/DL 70-110 H HEMOGLOBIN [id number] 03:03:00* Test Item Value Reference Range Interpretation Comme nts HEMOGLOBIN ABG (test code = HGB/ABG) 8.2 G/DL 11.0-15.0 L [id number] 03:03:00* Test Item Value Reference Range Interpretation Comme nts HEMATOCRIT (test code = HCT/ABG) 24 % 33.0-45.0 L POC LACTIC [id number] 03:03:00* Test Item Value Reference Range Interpretation Comme nts POC LACTIC ACID (test code = POCLAC) 0.5 mmol/l 0.9-1.7 L POC ARTERIAL BLOOD [id number] 02:09:00* Test Item Value Reference Range Interpretation Comme nts POC ARTERIAL BLOOD GAS PH (t est code = POCPHA) 7.327 7.35-7.45 L POC ARTERIAL BLOOD GAS PCO2 (test code = JSUYTA5U) 80.5 mmHg 35.0-45 HH POC TCO2 ARTERIAL (test code = POCTCO2) 45.0 POC ARTERIAL BLOOD GAS PO2 ( test code = OERXJ2I) 73.3 mmHg 80-100.0 L POC HCO3 ARTERIAL (test code = JQVSLB9C) 42.4 MMOL/L 22.0-26.0 HH POC BASE EXCESS (test code = POCBEA) 16.3 MMOL/L -4.0-4.0 H POC O2 SATURATION (test code = POCO2S) 92.8 % 90-100 N FIO2 (test code = FIO2A) 40 % PaO2/FiO2 (test code = QFC2HSL0) 183.25 mm/Hg ABG DELIVERY (test code = MAAME) BiPAP ABG TEMPERATURE (test code = TEMPA) 97.5 F ABG SITE (test code = SITEA) Art Line BASIC METABOLIC [id number] 02:09:00* Test Item Value Reference Range Interpretation [...] = POCGLU) 106 MG/DL 70-110 N HEMOGLOBIN [id number] 02:09:00* Test Item Value Reference Range Interpretation Comme nts HEMOGLOBIN ABG (test code = HGB/ABG) 7.9 G/DL 11.0-15.0 L [id number] 02:09:00* Test Item Value Reference Range Interpretation Comme nts HEMATOCRIT (test code = HCT/ABG) 23 % 33.0-45.0 L POC LACTIC [id number] 02:09:00* Test Item Value Reference Range Interpretation Comme nts POC LACTIC ACID (test code = POCLAC) 0.5 mmol/l 0.9-1.7 L POC ARTERIAL BLOOD [id number] 01:21:00* Test Item Value Reference Range Interpretation Comme nts POC ARTERIAL BLOOD GAS PH (t est code = POCPHA) 7.326 7.35-7.45 L POC ARTERIAL BLOOD GAS PCO2 (test code = VMGGSM0F) 81.2 mmHg 35.0-45 HH POC TCO2 ARTERIAL (test code = POCTCO2) 45.3 POC ARTERIAL BLOOD GAS PO2 ( test code = DSDKT6G) 78.4 mmHg 80-100.0 L POC HCO3 ARTERIAL (test code = HGBEEW3U) 42.8 MMOL/L 22.0-26.0 HH POC BASE EXCESS (test code = POCBEA) 16.6 MMOL/L -4.0-4.0 H POC O2 SATURATION (test code = POCO2S) 94.0 % 90-100 N FIO2 (test code = FIO2A) 40 % PaO2/FiO2 (test code = QPL4JHW9) 196.00 mm/Hg ABG DELIVERY (test code = MAAME) BiPAP ABG TEMPERATURE (test code = TEMPA) 97.3 F ABG SITE (test code = SITEA) Art Line MARTIN'S TEST (test code = ALLENS) N/A BASIC METABOLIC [id number] 01:21:00* Test Item Value Reference Range Interpretation [...] = POCGLU) 120 MG/DL 70-110 H HEMOGLOBIN [id number] 01:21:00* Test Item Value Reference Range Interpretation Comme nts HEMOGLOBIN ABG (test code = HGB/ABG) 7.5 G/DL 11.0-15.0 L [id number] 01:21:00* Test Item Value Reference Range Interpretation Comme nts HEMATOCRIT (test code = HCT/ABG) 22 % 33.0-45.0 L POC LACTIC [id number] 01:21:00* Test Item Value Reference Range Interpretation Comme nts POC LACTIC ACID (test code = POCLAC) 0.7 mmol/l 0.9-1.7 L GLUCOSE [id number] 01:05:00* Test Item Value Reference Range Interpretation Comme nts GLUCOSE BEDSIDE (test code = GLUBED) 126 MG/DL 70-110 H Performed by cer tified gas burner operator at [facility] GLUCOSE [id number] 00:10:00* Test Item Value Reference Range Interpretation Comme nts GLUCOSE BEDSIDE (test code = GLUBED) 43 MG/DL 70-110 L Performed by cer tified gas burner operator at [facility] - XR CHEST 1 [id number] 00:00:00 [facility] 1945 Sex: F FAX: Jeffry Pennington MD [phone] [place]: St: ADM FAX: Abdiaziz Christiansen MD [phone] FAX: Solange Sweeney MD [phone] FAX: Colt Aguillon MD [phone] Name: KIAH GILES [facility] : 1945 Age/S: 76/F [address] [place] [address] Unit #: [id number] Loc: [place] [address] Phys: Solange Mohamud MD Acct: [id number] Dis Date: Status: ADM IN PHONE #: [phone] Exam Date: 12/29/2021616 FAX #: [phone] Reason: POST-OP CV SURGERY EXAMS: CPT CODE: [id number] XR CHEST 1 V 03192 PROCEDURE INFORMATION: Exam: XR Chest Exam date [...] S: 12/29/2021 (701) PAGE 1 Signed ReportGLUCOSE [id number] 23:44:00* Test Item Value Reference Range Interpretation Comme nts GLUCOSE BEDSIDE (test code = GLUBED) 37 MG/DL 70-110 L Performed by cer arlene gas burner operator at [facility] BASIC METABOLIC [id number] 21:29:00* Test Item Value Reference Range Interpretation [...] = CA) 9.7 mg/dL 8.0-10.5 N GLUCOSE [id number] 21:20:00* Test Item Value Reference Range Interpretation Comme nts GLUCOSE BEDSIDE (test code = GLUBED) 117 MG/DL 70-110 H Performed by cer arlene gas burner operator at [facility] POC ARTERIAL BLOOD [id number] 21:09:00* Test Item Value Reference Range Interpretation Comme nts POC ARTERIAL BLOOD GAS PH (t est code = POCPHA) 7.363 7.35-7.45 N POC ARTERIAL BLOOD GAS PCO2 (test code = EEAPJG4L) 72.2 mmHg 35.0-45 HH POC TCO2 ARTERIAL (test code = POCTCO2) 43.4 POC ARTERIAL BLOOD GAS PO2 ( test code = YGCZZ8F) 77.1 mmHg 80-100.0 L POC HCO3 ARTERIAL (test code = WEOYDB3P) 41.2 MMOL/L 22.0-26.0 HH POC BASE EXCESS (test code = POCBEA) 15.7 MMOL/L -4.0-4.0 H POC O2 SATURATION (test code = POCO2S) 94.1 % 90-100 N ABG DELIVERY (test code = MAAME) Cannula ABG TEMPERATURE (test code = TEMPA) 98.1 F ABG SITE (test code = SITEA) Art Line BASIC METABOLIC [id number] 21:09:00* Test Item Value Reference Range Interpretation [...] = POCGLU) 104 MG/DL 70-110 N HEMOGLOBIN [id number] 21:09:00* Test Item Value Reference Range Interpretation Comme nts HEMOGLOBIN ABG (test code = HGB/ABG) 8.2 G/DL 11.0-15.0 L [id number] 21:09:00* Test Item Value Reference Range Interpretation Comme nts HEMATOCRIT (test code = HCT/ABG) 24 % 33.0-45.0 L POC LACTIC [id number] 21:09:00* Test Item Value Reference Range Interpretation Comme nts POC LACTIC ACID (test code = POCLAC) 0.8 mmol/l 0.9-1.7 L GLUCOSE [id number] 19:27:00* Test Item Value Reference Range Interpretation Comme nts GLUCOSE BEDSIDE (test code = GLUBED) 139 MG/DL 70-110 H Performed by cer tified gas burner operator at [facility] GLUCOSE [id number] 19:21:00* Test Item Value Reference Range Interpretation Comme nts GLUCOSE BEDSIDE (test code = GLUBED) 106 MG/DL 70-110 N Performed by cer t[place] gas burner operator at [facility] GLUCOSE [id number] 16:45:00* Test Item Value Reference Range Interpretation Comme nts GLUCOSE BEDSIDE (test code = GLUBED) 162 MG/DL 70-110 H Performed by cer t[place] gas burner operator at [facility] GLUCOSE [id number] 16:42:00* Test Item Value Reference Range Interpretation Comme nts GLUCOSE BEDSIDE (test code = GLUBED) 225 MG/DL 70-110 H Performed by cer tified gas burner operator at [facility] POC ARTERIAL BLOOD [id number] 16:39:00* Test Item Value Reference Range Interpretation Comme nts POC ARTERIAL BLOOD GAS PH (t est code = POCPHA) 7.396 7.35-7.45 N POC ARTERIAL BLOOD GAS PCO2 (test code = IKXZTS1G) 65.9 mmHg 35.0-45 HH POC TCO2 ARTERIAL (test code = POCTCO2) 42.7 POC ARTERIAL BLOOD GAS PO2 ( test code = ZHPAH8X) 74.6 mmHg 80-100.0 L POC HCO3 ARTERIAL (test code = CKOHMP4I) 40.6 MMOL/L 22.0-26.0 HH POC BASE EXCESS (test code = POCBEA) 15.7 MMOL/L -4.0-4.0 H POC O2 SATURATION (test code = POCO2S) 94.3 % 90-100 N ABG DELIVERY (test code = MAAME) Cannula ABG TEMPERATURE (test code = TEMPA) 98 F ABG SITE (test code = SITEA) Art Line BASIC METABOLIC [id number] 16:39:00* Test Item Value Reference Range Interpretation [...] = POCGLU) 131 MG/DL 70-110 H HEMOGLOBIN [id number] 16:39:00* Test Item Value Reference Range Interpretation Comme nts HEMOGLOBIN ABG (test code = HGB/ABG) 8.5 G/DL 11.0-15.0 L [id number] 16:39:00* Test Item Value Reference Range Interpretation Comme nts HEMATOCRIT (test code = HCT/ABG) 25 % 33.0-45.0 L POC LACTIC [id number] 16:39:00* Test Item Value Reference Range Interpretation Comme nts POC LACTIC ACID (test code = POCLAC) 0.7 mmol/l 0.9-1.7 L GLUCOSE [id number] 14:00:00* Test Item Value Reference Range Interpretation Comme nts GLUCOSE BEDSIDE (test code = GLUBED) 212 MG/DL 70-110 H Performed by cer tified gas burner operator at [facility] GLUCOSE [id number] 13:59:00* Test Item Value Reference Range Interpretation Comme nts GLUCOSE BEDSIDE (test code = GLUBED) 227 MG/DL 70-110 H Performed by cer tified gas burner operator at [facility] BASIC METABOLIC [id number] 12:35:00* Test Item Value Reference Range Interpretation [...] 9.5 mg/dL 8.0-10.5 N POC ARTERIAL BLOOD [id number] 11:40:00* Test Item Value Reference Range Interpretation Comme nts POC ARTERIAL BLOOD GAS PH (t est code = POCPHA) 7.349 7.35-7.45 L POC ARTERIAL BLOOD GAS PCO2 (test code = HOWUBO3O) 72.2 mmHg 35.0-45 HH POC TCO2 ARTERIAL (test code = POCTCO2) 42.2 POC ARTERIAL BLOOD GAS PO2 ( test code = VXYDA4I) 95.9 mmHg 80-100.0 N POC HCO3 ARTERIAL (test code = FCGIIS5G) 39.9 MMOL/L 22.0-26.0 HH POC BASE EXCESS (test code = POCBEA) 14.2 MMOL/L -4.0-4.0 H POC O2 SATURATION (test code = POCO2S) 96.7 % 90-100 N FIO2 (test code = FIO2A) 40 % PaO2/FiO2 (test code = WZO4OMC0) 239.75 mm/Hg ABG DELIVERY (test code = MAAME) CPAP ABG TEMPERATURE (test code = TEMPA) 98 F ABG SITE (test code = SITEA) Art Line MARTIN'S TEST (test code = ALLENS) N/A BASIC METABOLIC [id number] 11:40:00* Test Item Value Reference Range Interpretation [...] = POCGLU) 303 MG/DL 70-110 H HEMOGLOBIN [id number] 11:40:00* Test Item Value Reference Range Interpretation Comme [facility] HEMOGLOBIN ABG (test code = HGB/ABG) 8.3 G/DL 11.0-15.0 L [id number] 11:40:00* Test Item Value Reference Range Interpretation Comme [facility] HEMATOCRIT (test code = HCT/ABG) 24 % 33.0-45.0 L POC LACTIC [id number] 11:40:00* Test Item Value Reference Range Interpretation Comme [facility] POC LACTIC ACID (test code = POCLAC) 0.7 mmol/l 0.9-1.7 L GLUCOSE [id number] 10:54:00* Test Item Value Reference Range Interpretation Comme [facility] GLUCOSE BEDSIDE (test code = GLUBED) 289 MG/DL 70-110 H Performed by cer tified gas burner operator at [facility] GLUCOSE [id number] 07:48:00* Test Item Value Reference Range Interpretation Comme [facility] GLUCOSE BEDSIDE (test code = GLUBED) 107 MG/DL 70-110 N Performed by cer tified gas burner operator at [facility] BASIC METABOLIC [id number] 04:25:00* Test Item Value Reference Range Interpretation [...] code = CA) 10.0 mg/dL 8.0-10.5 N [id number] 04:25:00* Test Item Value Reference Range Interpretation Comme nts MAGNESIUM (test code = MAG) 2.19 mg/dL 1.80-2.40 N CBC W/AUTO [id number] 04:02:00* Test Item Value Reference Range Interpretation [...] ode = MDIFF) NO POC ARTERIAL BLOOD [id number] 03:44:00* Test Item Value Reference Range Interpretation Comme nts POC ARTERIAL BLOOD GAS PH (t est code = POCPHA) 7.408 7.35-7.45 N POC ARTERIAL BLOOD GAS PCO2 (test code = RGRRZM5W) 63.1 mmHg 35.0-45 HH POC TCO2 ARTERIAL (test code = POCTCO2) 42.0 POC ARTERIAL BLOOD GAS PO2 ( test code = ORARW4C) 58.6 mmHg 80-100.0 L POC HCO3 ARTERIAL (test code = AGBCUL7Q) 40.0 MMOL/L 22.0-26.0 HH POC BASE EXCESS (test code = POCBEA) 15.2 MMOL/L -4.0-4.0 H POC O2 SATURATION (test code = POCO2S) 89.7 % 90-100 L ABG DELIVERY (test code = MAAME) Cannula ABG TEMPERATURE (test code = TEMPA) 97.7 F ABG SITE (test code = SITEA) Art Line BASIC METABOLIC [id number] 03:44:00* Test Item Value Reference Range Interpretation [...] = POCGLU) 102 MG/DL 70-110 N HEMOGLOBIN [id number] 03:44:00* Test Item Value Reference Range Interpretation Comme nts HEMOGLOBIN ABG (test code = HGB/ABG) 8.4 G/DL 11.0-15.0 L [id number] 03:44:00* Test Item Value Reference Range Interpretation Comme nts HEMATOCRIT (test code = HCT/ABG) 25 % 33.0-45.0 L POC LACTIC [id number] 03:44:00* Test Item Value Reference Range Interpretation Comme nts POC LACTIC ACID (test code = POCLAC) 0.5 mmol/l 0.9-1.7 L GLUCOSE [id number] 01:41:00* Test Item Value Reference Range Interpretation Comme nts GLUCOSE BEDSIDE (test code = GLUBED) 130 MG/DL 70-110 H Performed by cer tified gas burner operator at [facility] - XR CHEST 1 [id number] 00:00:00 [facility] 1945 Sex: F FAX: Jeffry Pennington MD [phone] [place]: St: ADM FAX: Abdiaziz Christiansen MD [phone] FAX: Solange Sweeney MD [phone] FAX: Colt Aguillon MD [phone] Name: KIAH GILES [facility] : 1945 Age/S: 76/F [address] [place] [address] Blvd Unit #: [id number] Loc: G.2205 [place] [address] Phys: Solange Mohamud MD Acct: [id number] Dis Date: Status: ADM IN PHONE #: [phone] Exam Date: 12/28/2021708 FAX #: [phone] Reason: POST-OP CV SURGERY EXAMS: CPT CODE: [id number] XR CHEST 1 V [id number] INFORMATION: Exam: XR Chest Exam date and [...] bony degenerative changes. Sternotomy wires, hardware is demonstrated.Soft tissues: This study is limited by patient's body habitus. Other findings: Limited study with patient rotation. IMPRESSION: 1. Moderate to severe enlarged cardiac silhouette. 2. Severe alveolar pulmonary edema versus pneumonia. Progression. 3. Moderate bilateral pleural effusions. at 0836 Reported and signed by: Leonard Escobar M.D. CC: Jeffry Hsu MD; Abdiaziz Fuchs MD; Solange Mohamud MD; Colt Vail MDTechnologist: Xenia Bashir RT(R); RT Blade(R) Trnscrd Date/Time/By: 12/28/2021 (0836) : By: [email or web address] Orig Print D/T: S: 12/28/2021 (0873) PAGE 1 Signed ReportGLUCOSE [id number] 23:17:00* Test Item Value Reference Range Interpretation Comme nts GLUCOSE BEDSIDE (test code = GLUBED) 95 MG/DL 70-110 N Performed by cer tified gas burner operator at [facility] POC ARTERIAL BLOOD [id number] 23:14:00* Test Item Value Reference Range Interpretation Comme nts POC ARTERIAL BLOOD GAS PH (t est code = POCPHA) 7.378 7.35-7.45 N POC ARTERIAL BLOOD GAS PCO2 (test code = CSUCKI9B) 71.2 mmHg 35.0-45 HH POC TCO2 ARTERIAL (test code = POCTCO2) 44.1 POC ARTERIAL BLOOD GAS PO2 ( test code = FYPYN1Q) 86.3 mmHg 80-100.0 N POC HCO3 ARTERIAL (test code = LMPEYO0M) 41.9 MMOL/L 22.0-26.0 HH POC BASE EXCESS (test code = POCBEA) 16.7 MMOL/L -4.0-4.0 H POC O2 SATURATION (test code = POCO2S) 95.7 % 90-100 N ABG DELIVERY (test code = MAAME) Cannula ABG TEMPERATURE (test code = TEMPA) 98.6 F ABG SITE (test code = SITEA) Art Line BASIC METABOLIC [id number] 23:14:00* Test Item Value Reference Range Interpretation [...] = POCGLU) 86 MG/DL 70-110 N HEMOGLOBIN [id number] 23:14:00* Test Item Value Reference Range Interpretation Comme nts HEMOGLOBIN ABG (test code = HGB/ABG) 8.2 G/DL 11.0-15.0 L [id number] 23:14:00* Test Item Value Reference Range Interpretation Comme nts HEMATOCRIT (test code = HCT/ABG) 24 % 33.0-45.0 L POC LACTIC [id number] 23:14:00* Test Item Value Reference Range Interpretation Comme nts POC LACTIC ACID (test code = POCLAC) 0.7 mmol/l 0.9-1.7 L GLUCOSE [id number] 19:13:00* Test Item Value Reference Range Interpretation Comme nts GLUCOSE BEDSIDE (test code = GLUBED) 155 MG/DL 70-110 H Performed by cer [employer] gas burner operator at [facility] FLUID [id number] 17:44:00* Test Item Value Reference Range Interpretation Comme nts FLUID CO2 (test code = CO2BF) 38 21-33 H FLUID [id number] 17:44:00* Test Item Value Reference Range Interpretation Comme nts FLUID CO2 (test code = CO2BF) 38 21-33 H GLUCOSE [id number] 17:18:00* Test Item Value Reference Range Interpretation Comme nts GLUCOSE BEDSIDE (test code = GLUBED) 116 MG/DL 70-110 H Performed by cer [employer] gas burner operator at [facility] BASIC METABOLIC [id number] 16:33:00* Test Item Value Reference Range Interpretation [...] code = CA) 9.6 mg/dL 8.0-10.5 N [id number] 16:33:00* Test Item Value Reference Range Interpretation Comme nts MAGNESIUM (test code = MAG) 2.30 mg/dL 1.80-2.40 N GLUCOSE [id number] 15:13:00* Test Item Value Reference Range Interpretation Comme nts GLUCOSE BEDSIDE (test code = GLUBED) 198 MG/DL 70-110 H Performed by cer tified gas burner operator at [facility] BASIC METABOLIC [id number] 15:01:00* Test Item Value Reference Range Interpretation [...] = CA) 9.8 mg/dL 8.0-10.5 N GLUCOSE [id number] 13:01:00* Test Item Value Reference Range Interpretation Comme nts GLUCOSE BEDSIDE (test code = GLUBED) 166 MG/DL 70-110 H Performed by cer tified gas burner operator at [facility] GLUCOSE [id number] 12:00:00* Test Item Value Reference Range Interpretation Comme nts GLUCOSE BEDSIDE (test code = GLUBED) 149 MG/DL 70-110 H Performed by cer tified gas burner operator at [facility] BASIC METABOLIC [id number] 11:08:00* Test Item Value Reference Range Interpretation [...] = CA) 10.0 mg/dL 8.0-10.5 N GLUCOSE [id number] 10:29:00* Test Item Value Reference Range Interpretation Comme nts GLUCOSE BEDSIDE (test code = GLUBED) 183 MG/DL 70-110 H Performed by cer tified gas burner operator at [facility] POC ARTERIAL BLOOD [id number] 10:20:00* Test Item Value Reference Range Interpretation Comme nts POC ARTERIAL BLOOD GAS PH (t est code = POCPHA) 7.430 7.35-7.45 N POC ARTERIAL BLOOD GAS PCO2 (test code = WHIBRZ9P) 63.2 mmHg 35.0-45 HH POC TCO2 ARTERIAL (test code = POCTCO2) 44.1 POC ARTERIAL BLOOD GAS PO2 ( test code = EGLLU6V) 73.3 mmHg 80-100.0 L POC HCO3 ARTERIAL (test code = APNSQI5B) 42.1 MMOL/L 22.0-26.0 HH POC BASE EXCESS (test code = POCBEA) 17.7 MMOL/L -4.0-4.0 H POC O2 SATURATION (test code = POCO2S) 94.5 % 90-100 N ABG DELIVERY (test code = MAAME) Cannula ABG TEMPERATURE (test code = TEMPA) 98 F ABG SITE (test code = SITEA) Art Line MARTIN'S TEST (test code = ALLENS) N/A BASIC METABOLIC [id number] 10:20:00* Test Item Value Reference Range Interpretation [...] = POCGLU) 184 MG/DL 70-110 H HEMOGLOBIN [id number] 10:20:00* Test Item Value Reference Range Interpretation Comme nts HEMOGLOBIN ABG (test code = HGB/ABG) 8.5 G/DL 11.0-15.0 L [id number] 10:20:00* Test Item Value Reference Range Interpretation Comme nts HEMATOCRIT (test code = HCT/ABG) 25 % 33.0-45.0 L POC LACTIC [id number] 10:20:00* Test Item Value Reference Range Interpretation Comme nts POC LACTIC ACID (test code = POCLAC) 1.2 mmol/l 0.9-1.7 N GLUCOSE [id number] 09:11:00* Test Item Value Reference Range Interpretation Comme nts GLUCOSE BEDSIDE (test code = GLUBED) 235 MG/DL 70-110 H Performed by cer tified gas burner operator at [facility] GLUCOSE [id number] 08:15:00* Test Item Value Reference Range Interpretation Comme nts GLUCOSE BEDSIDE (test code = GLUBED) 259 MG/DL 70-110 H Performed by cer [employer] gas burner operator at [facility] GLUCOSE [id number] 05:53:00* Test Item Value Reference Range Interpretation Comme nts GLUCOSE BEDSIDE (test code = GLUBED) 203 MG/DL 70-110 H Performed by cer tified gas burner operator at [facility] CBC W/AUTO [id number] 04:38:00* Test Item Value Reference Range Interpretation [...] c ode = MDIFF) NO BASIC METABOLIC [id number] 04:19:00* Test Item Value Reference Range Interpretation [...] code = CA) 9.9 mg/dL 8.0-10.5 N [id number] 04:19:00* Test Item Value Reference Range Interpretation Comme nts MAGNESIUM (test code = MAG) 2.20 mg/dL 1.80-2.40 N POC ARTERIAL BLOOD [id number] 02:45:00* Test Item Value Reference Range Interpretation Comme nts POC ARTERIAL BLOOD GAS PH (t est code = POCPHA) 7.388 7.35-7.45 N POC ARTERIAL BLOOD GAS PCO2 (test code = EUUUAB5T) 70.2 mmHg 35.0-45 HH POC TCO2 ARTERIAL (test code = POCTCO2) 44.5 POC ARTERIAL BLOOD GAS PO2 ( test code = EQFRJ3M) 85.6 mmHg 80-100.0 N POC HCO3 ARTERIAL (test code = TMHFBP0I) 42.4 MMOL/L 22.0-26.0 HH POC BASE EXCESS (test code = POCBEA) 17.4 MMOL/L -4.0-4.0 H POC O2 SATURATION (test code = POCO2S) 95.8 % 90-100 N FIO2 (test code = FIO2A) 50 % PaO2/FiO2 (test code = NUR5FIA0) 171.20 mm/Hg ABG DELIVERY (test code = MAAME) BiPAP ABG PEEP (test code = PEEPA) 5 cmH2O ABG TEMPERATURE (test code = TEMPA) 98.4 F ABG SITE (test code = SITEA) Art Line BASIC METABOLIC [id number] 02:45:00* Test Item Value Reference Range Interpretation [...] = POCGLU) 95 MG/DL 70-110 N HEMOGLOBIN [id number] 02:45:00* Test Item Value Reference Range Interpretation Comme nts HEMOGLOBIN ABG (test code = HGB/ABG) 8.2 G/DL 11.0-15.0 L [id number] 02:45:00* Test Item Value Reference Range Interpretation Comme nts HEMATOCRIT (test code = HCT/ABG) 24 % 33.0-45.0 L POC LACTIC [id number] 02:45:00* Test Item Value Reference Range Interpretation Comme nts POC LACTIC ACID (test code = POCLAC) 0.6 mmol/l 0.9-1.7 L GLUCOSE [id number] 02:04:00* Test Item Value Reference Range Interpretation Comme nts GLUCOSE BEDSIDE (test code = GLUBED) 86 MG/DL 70-110 N Performed by cer tified gas burner operator at [facility] GLUCOSE [id number] 00:36:00* Test Item Value Reference Range Interpretation Comme [facility] GLUCOSE BEDSIDE (test code = GLUBED) 72 MG/DL 70-110 N Performed by cer tified gas burner operator at [facility] - XR CHEST 1 [id number] 00:00:00 [facility] 1945 Sex: F FAX: Jeffry Pennington MD [phone] [place]: St: ADM FAX: Abdiaziz Christiansen MD [phone] FAX: Solange Sweeney MD [phone] FAX: Colt Aguillon MD [phone] Name: KIAH GILES [facility] : 1945 Age/S: 76/F [address] [place] [address] Unit #: [id number] Loc: G.[address] [place] [address] Phys: Solange Mohamud MD Acct: [id number] Dis Date: Status: ADM IN PHONE #: [phone] Exam Date: 12/27/2021 0732 FAX #: [phone] Reason: S/P CABG EXAMS: CPT CODE: [id number] XR CHEST 1 V 36043 PROCEDURE INFORMATION: Exam: XR Chest Exam date [...] Stable to slightly improved bilateral layering pleural effusions.2. Similar bilateral alveolar pulmonary opacities, probably representing edema and or atelectasis/secretions. 3. Otherwise grossly stable postoperative mediastinum. at 1005 Reported and signed by: Jonathan Calles M.D. CC: Jeffry Hsu MD; Abdiaziz Fuchs MD; Solange Mohamud MD; Colt Vail MD Technologist: Shell Min RT(R); Debbie Fuentes RT(R) Trnscrd Date/Time/By: 12/27/2021 (1005) : By: [email or web address] Orig Print D/T: S: 12/27/2021 (1002) PAGE 1 Signed ReportGLUCOSE BEDSIDE 2021-12-26 22:21:00* Test Item Value Reference Range Interpretation Comme [facility] GLUCOSE BEDSIDE (test code = GLUBED) 148 MG/DL 70-110 H Performed by cer tified gas burner operator at [facility] GLUCOSE [id number] 20:05:00* Test Item Value Reference Range Interpretation Comme [facility] GLUCOSE BEDSIDE (test code = GLUBED) 232 MG/DL 70-110 H Performed by [facility] tified gas burner operator at [facility] BASIC METABOLIC [id number] 18:16:00* Test Item Value Reference Range Interpretation Comme [facility] SODIUM (test code = NA) 144 mEq/L [...] code = CA) 9.8 mg/dL 8.0-10.5 N [id number] 18:16:00* Test Item Value Reference Range Interpretation Comme nts PHOSPHOROUS (test code = PHOS) 3.0 MG/DL 2.5-4.9 N [id number] 18:16:00* Test Item Value Reference Range Interpretation Comme nts MAGNESIUM (test code = MAG) 2.30 mg/dL 1.80-2.40 N GLUCOSE [id number] 17:47:00* Test Item Value Reference Range Interpretation Comme nts GLUCOSE BEDSIDE (test code = GLUBED) 283 MG/DL 70-110 H Performed by cer arlene gas burner operator at [facility] BASIC METABOLIC [id number] 13:10:00* Test Item Value Reference Range Interpretation [...] code = CA) 10.1 mg/dL 8.0-10.5 N [id number] 13:10:00* Test Item Value Reference Range Interpretation Comme nts MAGNESIUM (test code = MAG) 2.43 mg/dL 1.80-2.40 H CALCIUM [id number] 13:10:00* Test Item Value Reference Range Interpretation Comme nts CALCIUM IONIZED (test code = TYREE) 1.22 MMOL/L 1.09-1.30 N POC ARTERIAL BLOOD [id number] 12:53:00* Test Item Value Reference Range Interpretation Comme nts POC ARTERIAL BLOOD GAS PH (t est code = POCPHA) 7.356 7.35-7.45 N POC ARTERIAL BLOOD GAS PCO2 (test code = GGSZDV9Q) 69.2 mmHg 35.0-45 HH POC TCO2 ARTERIAL (test code = POCTCO2) 40.9 POC ARTERIAL BLOOD GAS PO2 ( test code = HMSVD0S) 128.4 mmHg 80-100.0 H POC HCO3 ARTERIAL (test code = HNUVMQ1B) 38.8 MMOL/L 22.0-26.0 HH POC BASE EXCESS (test code = POCBEA) 13.2 MMOL/L -4.0-4.0 H POC O2 SATURATION (test code = POCO2S) 98.6 % 90-100 N ABG DELIVERY (test code = MAAME) HFNC ABG SITE (test code = SITEA) Art Line BASIC METABOLIC [id number] 12:53:00* Test Item Value Reference Range Interpretation [...] = POCGLU) 203 MG/DL 70-110 H HEMOGLOBIN [id number] 12:53:00* Test Item Value Reference Range Interpretation Comme nts HEMOGLOBIN ABG (test code = HGB/ABG) 8.6 G/DL 11.0-15.0 L [id number] 12:53:00* Test Item Value Reference Range Interpretation Comme nts HEMATOCRIT (test code = HCT/ABG) 25 % 33.0-45.0 L POC LACTIC [id number] 12:53:00* Test Item Value Reference Range Interpretation Comme nts POC LACTIC ACID (test code = POCLAC) 0.7 mmol/l 0.9-1.7 L POC ARTERIAL BLOOD [id number] 12:05:00* Test Item Value Reference Range Interpretation Comme nts POC ARTERIAL BLOOD GAS PH (t est code = POCPHA) 7.364 7.35-7.45 N POC ARTERIAL BLOOD GAS PCO2 (test code = OKIFZJ5Z) 68.3 mmHg 35.0-45 HH POC TCO2 ARTERIAL (test code = POCTCO2) 41.1 POC ARTERIAL BLOOD GAS PO2 ( test code = SEYJM2G) 100.9 mmHg 80-100.0 H POC HCO3 ARTERIAL (test code = YZGHSD8N) 39.0 MMOL/L 22.0-26.0 HH POC BASE EXCESS (test code = POCBEA) 13.6 MMOL/L -4.0-4.0 H POC O2 SATURATION (test code = POCO2S) 97.2 % 90-100 N FIO2 (test code = FIO2A) 50 % PaO2/FiO2 (test code = QFF3AEE4) 201.80 mm/Hg ABG DELIVERY (test code = MAAME) BiPAP ABG SITE (test code = SITEA) Art Line BASIC METABOLIC [id number] 12:05:00* Test Item Value Reference Range Interpretation [...] = POCGLU) 194 MG/DL 70-110 H HEMOGLOBIN [id number] 12:05:00* Test Item Value Reference Range Interpretation Comme nts HEMOGLOBIN ABG (test code = HGB/ABG) 7.9 G/DL 11.0-15.0 L [id number] 12:05:00* Test Item Value Reference Range Interpretation Comme nts HEMATOCRIT (test code = HCT/ABG) 23 % 33.0-45.0 L POC LACTIC [id number] 12:05:00* Test Item Value Reference Range Interpretation Comme nts POC LACTIC ACID (test code = POCLAC) 0.6 mmol/l 0.9-1.7 L GLUCOSE [id number] 09:39:00* Test Item Value Reference Range Interpretation Comme nts GLUCOSE BEDSIDE (test code = GLUBED) 185 MG/DL 70-110 H Performed by cer tified gas burner operator at [facility] GLUCOSE [id number] 05:54:00* Test Item Value Reference Range Interpretation Comme nts GLUCOSE BEDSIDE (test code = GLUBED) 168 MG/DL 70-110 H Performed by cer tified gas burner operator at [facility] BASIC METABOLIC [id number] 04:24:00* Test Item Value Reference Range Interpretation [...] code = CA) 10.4 mg/dL 8.0-10.5 N [id number] 04:24:00* Test Item Value Reference Range Interpretation Comme nts PHOSPHOROUS (test code = PHOS) 2.8 MG/DL 2.5-4.9 N [id number] 04:24:00* Test Item Value Reference Range Interpretation Comme nts MAGNESIUM (test code = MAG) 2.34 mg/dL 1.80-2.40 N CBC W/AUTO [id number] 04:03:00* Test Item Value Reference Range Interpretation [...] ode = MDIFF) NO POC ARTERIAL BLOOD [id number] 03:32:00* Test Item Value Reference Range Interpretation Comme nts POC ARTERIAL BLOOD GAS PH (t est code = POCPHA) 7.421 7.35-7.45 N POC ARTERIAL BLOOD GAS PCO2 (test code = TREIQU0N) 63.7 mmHg 35.0-45 HH POC TCO2 ARTERIAL (test code = POCTCO2) 43.5 POC ARTERIAL BLOOD GAS PO2 ( test code = QATAE1R) 89.6 mmHg 80-100.0 N POC HCO3 ARTERIAL (test code = AOINCA3N) 41.5 MMOL/L 22.0-26.0 HH POC BASE EXCESS (test code = POCBEA) 17.0 MMOL/L -4.0-4.0 H POC O2 SATURATION (test code = POCO2S) 96.8 % 90-100 N FIO2 (test code = FIO2A) 50 % PaO2/FiO2 (test code = GTX5RCD2) 179.20 mm/Hg ABG DELIVERY (test code = MAAME) BiPAP ABG VENT RESP RATE (test cod e = RRA) 26 /MIN ABG TEMPERATURE (test code = TEMPA) 98.1 F ABG SITE (test code = SITEA) L Radial MARTIN'S TEST (test code = ALLENS) N/A BASIC METABOLIC [id number] 03:32:00* Test Item Value Reference Range Interpretation [...] = POCGLU) 189 MG/DL 70-110 H HEMOGLOBIN [id number] 03:32:00* Test Item Value Reference Range Interpretation Comme nts HEMOGLOBIN ABG (test code = HGB/ABG) 8.6 G/DL 11.0-15.0 L [id number] 03:32:00* Test Item Value Reference Range Interpretation Comme nts HEMATOCRIT (test code = HCT/ABG) 25 % 33.0-45.0 L POC LACTIC [id number] 03:32:00* Test Item Value Reference Range Interpretation Comme nts POC LACTIC ACID (test code = POCLAC) 0.6 mmol/l 0.9-1.7 L GLUCOSE [id number] 00:03:00* Test Item Value Reference Range Interpretation Comme nts GLUCOSE BEDSIDE (test code = GLUBED) 181 MG/DL 70-110 H Performed by cer arlene gas burner operator at [facility] - XR CHEST 1 [id number] 00:00:00 [facility] : 1945 Sex: F FAX: Jeffry Pennington MD [phone] [place]: St: ADM FAX: Abdiaziz Christiansen MD [phone] FAX: Solange Sawyer MD [phone] FAX: Colt Agiullon MD [phone] Name: KIAH GILES [facility] : 1945 Age/S: 76/F [address] [place] [address] Unit #: [id number] Loc: [place], [place] [address]: Solange Mohamud MD Acct: [id number] Dis Date: Status: ADM IN PHONE #: [phone] Exam Date: 12/26/2021611 FAX #: [phone] Reason: DAILY EVAL POST OP MVR EXAMS: CPT CODE: [id number] XR CHEST 1 [id number] PROCEDURE INFORMATION: Exam: XR Chest Exam date and time: 12/26/2021 5:19 AM Age: 76 years old Clinical indication: Other: Daily eval post op mvr TECHNIQUE: Imaging protocol: Radiologic exam ofthe chest. Views: 1 view. COMPARISON: CR XR [...] Joe(R) Trnscrd Date/Time/By: 12/26/2021 (0643) : By: [email or web address] Orig Print D/T: S: 12/26/2021 (0670) PAGE 1 Signed ReportBASIC METABOLIC [id number] 20:47:00* Test Item Value Reference Range Interpretation [...] code = CA) 10.2 mg/dL 8.0-10.5 N [id number] 20:47:00* Test Item Value Reference Range Interpretation Comme nts MAGNESIUM (test code = MAG) 2.16 mg/dL 1.80-2.40 N POC ARTERIAL BLOOD [id number] 20:19:00* Test Item Value Reference Range Interpretation Comme nts POC ARTERIAL BLOOD GAS PH (t est code = POCPHA) 7.378 7.35-7.45 N POC ARTERIAL BLOOD GAS PCO2 (test code = [id number]) 64.8 mmHg 35.0-45 HH POC TCO2 ARTERIAL (test code = POCTCO2) 40.3 POC ARTERIAL BLOOD GAS PO2 ( test code = JPRBB7J) 86.4 mmHg 80-100.0 N POC HCO3 ARTERIAL (test code = HDRFDJ1I) 38.3 MMOL/L 22.0-26.0 HH POC BASE EXCESS (test code = POCBEA) 13.1 MMOL/L -4.0-4.0 H POC O2 SATURATION (test code = POCO2S) 96.1 % 90-100 N ABG DELIVERY (test code = MAAME) HFNC ABG TEMPERATURE (test code = TEMPA) 97.9 F ABG SITE (test code = SITEA) Art Line BASIC METABOLIC [id number] 20:19:00* Test Item Value Reference Range Interpretation [...] = POCGLU) 221 MG/DL 70-110 H HEMOGLOBIN [id number] 20:19:00* Test Item Value Reference Range Interpretation Comme nts HEMOGLOBIN ABG (test code = HGB/ABG) 8.2 G/DL 11.0-15.0 L [id number] 20:19:00* Test Item Value Reference Range Interpretation Comme nts HEMATOCRIT (test code = HCT/ABG) 24 % 33.0-45.0 L POC LACTIC [id number] 20:19:00* Test Item Value Reference Range Interpretation Comme nts POC LACTIC ACID (test code = POCLAC) 0.7 mmol/l 0.9-1.7 L GLUCOSE [id number] 18:32:00* Test Item Value Reference Range Interpretation Comme nts GLUCOSE BEDSIDE (test code = GLUBED) 235 MG/DL 70-110 H Performed by cer arlene gas burner operator at [facility] BASIC METABOLIC [id number] 16:07:00* Test Item Value Reference Range Interpretation [...] code = CA) 10.6 mg/dL 8.0-10.5 H [id number] 16:07:00* Test Item Value Reference Range Interpretation Comme nts PHOSPHOROUS (test code = PHOS) 2.9 MG/DL 2.5-4.9 N [id number] 16:07:00* Test Item Value Reference Range Interpretation Comme nts MAGNESIUM (test code = MAG) 2.26 mg/dL 1.80-2.40 N GLUCOSE [id number] 15:25:00* Test Item Value Reference Range Interpretation Comme nts GLUCOSE BEDSIDE (test code = GLUBED) 149 MG/DL 70-110 H Performed by cer arlene gas burner operator at [facility] POC ARTERIAL BLOOD [id number] 15:12:00* Test Item Value Reference Range Interpretation Comme nts POC ARTERIAL BLOOD GAS PH (t est code = POCPHA) 7.364 7.35-7.45 N POC ARTERIAL BLOOD GAS PCO2 (test code = MVHRVR0Z) 72.3 mmHg 35.0-45 HH POC TCO2 ARTERIAL (test code = POCTCO2) 43.4 POC ARTERIAL BLOOD GAS PO2 ( test code = GFNJU7W) 82.1 mmHg 80-100.0 N POC HCO3 ARTERIAL (test code = GHVTPN4L) 41.2 MMOL/L 22.0-26.0 HH POC BASE EXCESS (test code = POCBEA) 15.8 MMOL/L -4.0-4.0 H POC O2 SATURATION (test code = POCO2S) 94.9 % 90-100 N ABG DELIVERY (test code = MAAME) HFJV ABG SITE (test code = SITEA) Art Line BASIC METABOLIC [id number] 15:12:00* Test Item Value Reference Range Interpretation [...] = POCGLU) 161 MG/DL 70-110 H HEMOGLOBIN [id number] 15:12:00* Test Item Value Reference Range Interpretation Comme nts HEMOGLOBIN ABG (test code = HGB/ABG) 8.5 G/DL 11.0-15.0 L [id number] 15:12:00* Test Item Value Reference Range Interpretation Comme nts HEMATOCRIT (test code = HCT/ABG) 25 % 33.0-45.0 L POC LACTIC [id number] 15:12:00* Test Item Value Reference Range Interpretation Comme nts POC LACTIC ACID (test code = POCLAC) 0.7 mmol/l 0.9-1.7 L BASIC METABOLIC [id number] 12:25:00* Test Item Value Reference Range Interpretation [...] code = CA) 10.3 mg/dL 8.0-10.5 N [id number] 12:25:00* Test Item Value Reference Range Interpretation Comme nts PHOSPHOROUS (test code = PHOS) 2.8 MG/DL 2.5-4.9 [id number] 12:25:00* Test Item Value Reference Range Interpretation Comme nts MAGNESIUM (test code = MAG) 2.29 mg/dL 1.80-2.40 N POC ARTERIAL BLOOD [id number] 11:53:00* Test Item Value Reference Range Interpretation Comme nts POC ARTERIAL BLOOD GAS PH (t est code = POCPHA) 7.378 7.35-7.45 N POC ARTERIAL BLOOD GAS PCO2 (test code = EIAZDJ5V) 67.2 mmHg 35.0-45 HH POC TCO2 ARTERIAL (test code = POCTCO2) 41.6 POC ARTERIAL BLOOD GAS PO2 ( test code = MWZGP6S) 93.9 mmHg 80-100.0 N POC HCO3 ARTERIAL (test code = ZMEQOX9F) 39.6 MMOL/L 22.0-26.0 HH POC BASE EXCESS (test code = POCBEA) 14.4 MMOL/L -4.0-4.0 H POC O2 SATURATION (test code = POCO2S) 96.7 % 90-100 N FIO2 (test code = FIO2A) 45 % PaO2/FiO2 (test code = TRH3DCM1) 208.66 mm/Hg ABG DELIVERY (test code = MAAME) BiPAP ABG SITE (test code = SITEA) Art Line BASIC METABOLIC [id number] 11:53:00* Test Item Value Reference Range Interpretation [...] = POCGLU) 147 MG/DL 70-110 H HEMOGLOBIN [id number] 11:53:00* Test Item Value Reference Range Interpretation Comme nts HEMOGLOBIN ABG (test code = HGB/ABG) 8.2 G/DL 11.0-15.0 L [id number] 11:53:00* Test Item Value Reference Range Interpretation Comme nts HEMATOCRIT (test code = HCT/ABG) 24 % 33.0-45.0 L POC LACTIC [id number] 11:53:00* Test Item Value Reference Range Interpretation Comme nts POC LACTIC ACID (test code = POCLAC) 0.6 mmol/l 0.9-1.7 L POC ARTERIAL BLOOD [id number] 10:55:00* Test Item Value Reference Range Interpretation Comme nts POC ARTERIAL BLOOD GAS PH (t est code = POCPHA) 7.362 7.35-7.45 N POC ARTERIAL BLOOD GAS PCO2 (test code = HKNGCP4U) 65.6 mmHg 35.0-45 HH POC TCO2 ARTERIAL (test code = POCTCO2) 39.2 POC ARTERIAL BLOOD GAS PO2 ( test code = YXNYF7X) 93.1 mmHg 80-100.0 N POC HCO3 ARTERIAL (test code = RMNUGB4I) 37.2 MMOL/L 22.0-26.0 HH POC BASE EXCESS (test code = POCBEA) 11.8 MMOL/L -4.0-4.0 H POC O2 SATURATION (test code = POCO2S) 96.5 % 90-100 N FIO2 (test code = FIO2A) 45 % PaO2/FiO2 (test code = DZJ7CVJ9) 206.88 mm/Hg ABG DELIVERY (test code = MAAME) BiPAP ABG SITE (test code = SITEA) Art Line BASIC METABOLIC [id number] 10:55:00* Test Item Value Reference Range Interpretation [...] = POCGLU) 162 MG/DL 70-110 H HEMOGLOBIN [id number] 10:55:00* Test Item Value Reference Range Interpretation Comme nts HEMOGLOBIN ABG (test code = HGB/ABG) 8.2 G/DL 11.0-15.0 L [id number] 10:55:00* Test Item Value Reference Range Interpretation Comme nts HEMATOCRIT (test code = HCT/ABG) 24 % 33.0-45.0 L POC LACTIC [id number] 10:55:00* Test Item Value Reference Range Interpretation Comme nts POC LACTIC ACID (test code = POCLAC) 0.6 mmol/l 0.9-1.7 L POC ARTERIAL BLOOD [id number] 10:06:00* Test Item Value Reference Range Interpretation Comme nts POC ARTERIAL BLOOD GAS PH (t est code = POCPHA) 7.348 7.35-7.45 L POC ARTERIAL BLOOD GAS PCO2 (test code = LCZNBG3M) 71.0 mmHg 35.0-45 HH POC TCO2 ARTERIAL (test code = POCTCO2) 41.2 POC ARTERIAL BLOOD GAS PO2 ( test code = COIDS9D) 92.3 mmHg 80-100.0 N POC HCO3 ARTERIAL (test code = KAHAEX6I) 39.0 MMOL/L 22.0-26.0 HH POC BASE EXCESS (test code = POCBEA) 13.4 MMOL/L -4.0-4.0 H POC O2 SATURATION (test code = POCO2S) 96.2 % 90-100 N FIO2 (test code = FIO2A) 75 % PaO2/FiO2 (test code = MAA9BWZ5) 123.06 mm/Hg ABG DELIVERY (test code = MAAME) HFNC ABG SITE (test code = SITEA) Art Line BASIC METABOLIC [id number] 10:06:00* Test Item Value Reference Range Interpretation [...] = POCGLU) 192 MG/DL 70-110 H HEMOGLOBIN [id number] 10:06:00* Test Item Value Reference Range Interpretation Comme nts HEMOGLOBIN ABG (test code = HGB/ABG) 9.0 G/DL 11.0-15.0 L [id number] 10:06:00* Test Item Value Reference Range Interpretation Comme nts HEMATOCRIT (test code = HCT/ABG) 26 % 33.0-45.0 L POC LACTIC [id number] 10:06:00* Test Item Value Reference Range Interpretation Comme nts POC LACTIC ACID (test code = POCLAC) 0.7 mmol/l 0.9-1.7 L GLUCOSE [id number] 07:57:00* Test Item Value Reference Range Interpretation Comme nts GLUCOSE BEDSIDE (test code = GLUBED) 229 MG/DL 70-110 H Performed by cer tified gas burner operator at [facility] COMPREHENSIVE METABOLIC [id number] 04:18:00* Test Item Value Reference Range Interpretation [...] code = ALKP) 73 IUnit/L 20-125 N [id number] 04:18:00* Test Item Value Reference Range Interpretation Comme nts PHOSPHOROUS (test code = PHOS) 1.0 MG/DL 2.5-4.9 L [id number] 04:18:00* Test Item Value Reference Range Interpretation Comme nts MAGNESIUM (test code = MAG) 2.25 mg/dL 1.80-2.40 N CBC W/AUTO [id number] 04:04:00* Test Item Value Reference Range Interpretation [...] ode = MDIFF) NO POC ARTERIAL BLOOD [id number] 03:55:00* Test Item Value Reference Range Interpretation Comme nts POC ARTERIAL BLOOD GAS PH (t est code = POCPHA) 7.393 7.35-7.45 N POC ARTERIAL BLOOD GAS PCO2 (test code = BLEFRA8I) 67.7 mmHg 35.0-45 HH POC TCO2 ARTERIAL (test code = POCTCO2) 43.5 POC ARTERIAL BLOOD GAS PO2 ( test code = EVQKH0B) 73.0 mmHg 80-100.0 L POC HCO3 ARTERIAL (test code = DCKKIU0X) 41.4 MMOL/L 22.0-26.0 HH POC BASE EXCESS (test code = POCBEA) 16.4 MMOL/L -4.0-4.0 H POC O2 SATURATION (test code = POCO2S) 93.8 % 90-100 N FIO2 (test code = FIO2A) 75 % PaO2/FiO2 (test code = XIQ5HMM1) 97.33 mm/Hg ABG DELIVERY (test code = MAAME) HFNC ABG TEMPERATURE (test code = TEMPA) 98 F ABG SITE (test code = SITEA) Art Line MARTIN'S TEST (test code = ALLENS) N/A BASIC METABOLIC [id number] 03:55:00* Test Item Value Reference Range Interpretation [...] = POCGLU) 236 MG/DL 70-110 H HEMOGLOBIN [id number] 03:55:00* Test Item Value Reference Range Interpretation Comme nts HEMOGLOBIN ABG (test code = HGB/ABG) 8.5 G/DL 11.0-15.0 L [id number] 03:55:00* Test Item Value Reference Range Interpretation Comme nts HEMATOCRIT (test code = HCT/ABG) 25 % 33.0-45.0 L POC LACTIC [id number] 03:55:00* Test Item Value Reference Range Interpretation Comme nts POC LACTIC ACID (test code = POCLAC) 0.6 mmol/l 0.9-1.7 L GLUCOSE [id number] 02:46:00* Test Item Value Reference Range Interpretation Comme nts GLUCOSE BEDSIDE (test code = GLUBED) 209 MG/DL 70-110 H Performed by cer tified gas burner operator at [facility] GLUCOSE [id number] 00:20:00* Test Item Value Reference Range Interpretation Comme nts GLUCOSE BEDSIDE (test code = GLUBED) 127 MG/DL 70-110 H Performed by cer tified gas burner operator at [facility] - XR CHEST 1 [id number] 00:00:00 [facility] : 1945 Sex: F FAX: Jeffry Pennington MD [phone] [place]: St: ADM FAX: Abdiaziz Christiansen MD [phone] FAX: René Blancas [phone] FAX: Colt Aguillon MD [phone] Name: CHANCECIKIAH [facility] : 1945 Age/S: 76/F [address] [place] [address] Unit #: [id number] Loc: G.2205 [place] [address] Phys: René Villareal MD Acct: [id number] Dis Date: Status: ADM IN PHONE #: [phone] Exam Date: 12/25/2021 0701 FAX #: [phone] Reason: Cardiac Surgery Post Op EXAMS: CPT CODE: [id number] XR CHEST1 V [id number] PROCEDURE INFORMATION: Exam: XR Chest Exam date [...] René Villareal MD; Colt Vail MD Technologist: Earle Reyes, RT(R) Trnscrd Date/Time/By: 12/25/2021(0755) : By: [email or web address] [facility] Print D/T: S: 12/25/2021 (075) PAGE 1 Signed Report GLUCOSE [id number] 22:24:00* Test Item Value Reference Range Interpretation Comme nts GLUCOSE BEDSIDE (test code = GLUBED) 74 MG/DL 70-110 N Performed by anna jacobs gas burner operator at [facility] BASIC METABOLIC [id number] 21:02:00* Test Item Value Reference Range Interpretation [...] 9.9 mg/dL 8.0-10.5 N POC ARTERIAL BLOOD [id number] 20:05:00* Test Item Value Reference Range Interpretation Comme nts POC ARTERIAL BLOOD GAS PH (t est code = POCPHA) 7.358 7.35-7.45 N POC ARTERIAL BLOOD GAS PCO2 (test code = ORXFOX3M) 61.0 mmHg 35.0-45 HH POC TCO2 ARTERIAL (test code = POCTCO2) 36.3 POC ARTERIAL BLOOD GAS PO2 ( test code = RTRKV7F) 89.1 mmHg 80-100.0 N POC HCO3 ARTERIAL (test code = FCHGTA3I) 34.4 MMOL/L 22.0-26.0 HH POC BASE EXCESS (test code = POCBEA) 8.9 MMOL/L -4.0-4.0 H POC O2 SATURATION (test code = POCO2S) 96.2 % 90-100 N FIO2 (test code = FIO2A) 50 % PaO2/FiO2 (test code = TVG1XBS4) 178.20 mm/Hg ABG DELIVERY (test code = [...] (test code = ALLENS) Positive BASIC METABOLIC [id number] 20:05:00* Test Item Value Reference Range Interpretation [...] = POCGLU) 110 MG/DL 70-110 N HEMOGLOBIN [id number] 20:05:00* Test Item Value Reference Range Interpretation Comme nts HEMOGLOBIN ABG (test code = HGB/ABG) 7.2 G/DL 11.0-15.0 L [id number] 20:05:00* Test Item Value Reference Range Interpretation Comme nts HEMATOCRIT (test code = HCT/ABG) 21 % 33.0-45.0 L POC LACTIC [id number] 20:05:00* Test Item Value Reference Range Interpretation Comme nts POC LACTIC ACID (test code = POCLAC) 0.6 mmol/l 0.9-1.7 L GLUCOSE [id number] 18:28:00* Test Item Value Reference Range Interpretation Comme nts GLUCOSE BEDSIDE (test code = GLUBED) 139 MG/DL 70-110 H Performed by cer tified gas burner operator at [facility] POC ARTERIAL BLOOD [id number] 18:12:00* Test Item Value Reference Range Interpretation Comme nts POC ARTERIAL BLOOD GAS PH (t est code = POCPHA) 7.381 7.35-7.45 N POC ARTERIAL BLOOD GAS PCO2 (test code = LYGGRY3M) 64.5 mmHg 35.0-45 HH POC TCO2 ARTERIAL (test code = POCTCO2) 40.3 POC ARTERIAL BLOOD GAS PO2 ( test code = XRQIG9O) 81.9 mmHg 80-100.0 N POC HCO3 ARTERIAL (test code = UXFAOI4G) 38.3 MMOL/L 22.0-26.0 HH POC BASE EXCESS (test code = POCBEA) 13.1 MMOL/L -4.0-4.0 H POC O2 SATURATION (test code = POCO2S) 95.5 % 90-100 N FIO2 (test code = FIO2A) 50 % PaO2/FiO2 (test code = MKT6NCN4) 163.80 mm/Hg ABG DELIVERY (test code = MAAME) BiPAP ABG VENT RESP RATE (test cod e = RRA) 18 /MIN ABG PEEP (test code = PEEPA) 10 cmH2O ABG TEMPERATURE (test code = TEMPA) 97.9 F ABG SITE (test code = SITEA) Art Line MARTIN'S TEST (test code = ALLENS) N/A BASIC METABOLIC [id number] 18:12:00* Test Item Value Reference Range Interpretation [...] = POCGLU) 150 MG/DL 70-110 H HEMOGLOBIN [id number] 18:12:00* Test Item Value Reference Range Interpretation Comme nts HEMOGLOBIN ABG (test code = HGB/ABG) 8.6 G/DL 11.0-15.0 L [id number] 18:12:00* Test Item Value Reference Range Interpretation Comme nts HEMATOCRIT (test code = HCT/ABG) 25 % 33.0-45.0 L POC LACTIC [id number] 18:12:00* Test Item Value Reference Range Interpretation Comme nts POC LACTIC ACID (test code = POCLAC) 0.7 mmol/l 0.9-1.7 L GLUCOSE [id number] 17:05:00* Test Item Value Reference Range Interpretation Comme nts GLUCOSE BEDSIDE (test code = GLUBED) 170 MG/DL 70-110 H Performed by cer tified gas burner operator at [facility] BASIC METABOLIC [id number] 14:48:00* Test Item Value Reference Range Interpretation [...] code = CA) 10.4 mg/dL 8.0-10.5 N [id number] 14:48:00* Test Item Value Reference Range Interpretation Comme nts MAGNESIUM (test code = MAG) 2.40 mg/dL 1.80-2.40 N GLUCOSE [id number] 14:41:00* Test Item Value Reference Range Interpretation Comme nts GLUCOSE BEDSIDE (test code = GLUBED) 233 MG/DL 70-110 H Performed by cer tified gas burner operator at [facility] POC ARTERIAL BLOOD [id number] 14:21:00* Test Item Value Reference Range Interpretation Comme nts POC ARTERIAL BLOOD GAS PH (t est code = POCPHA) 7.346 7.35-7.45 L POC ARTERIAL BLOOD GAS PCO2 (test code = KHFNSL7Y) 63.5 mmHg 35.0-45 HH POC TCO2 ARTERIAL (test code = POCTCO2) 36.8 POC ARTERIAL BLOOD GAS PO2 ( test code = MGCML8U) 74.6 mmHg 80-100.0 L POC HCO3 ARTERIAL (test code = XMNJEJ8N) 34.8 MMOL/L 22.0-26.0 HH POC BASE EXCESS (test code = POCBEA) 9.1 MMOL/L -4.0-4.0 H POC O2 SATURATION (test code = POCO2S) 93.5 % 90-100 N FIO2 (test code = FIO2A) 50 % PaO2/FiO2 (test code = VWD3RVH2) 149.20 mm/Hg ABG DELIVERY (test code = MAAME) BiPAP ABG TIDAL VOLUME (test code = TVA) 18 ml ABG PEEP (test code = PEEPA) 10 cmH2O ABG TEMPERATURE (test code = TEMPA) 98.2 F ABG SITE (test code = SITEA) Art Line MARTIN'S TEST (test code = ALLENS) N/A BASIC METABOLIC [id number] 14:21:00* Test Item Value Reference Range Interpretation [...] = POCGLU) 237 MG/DL 70-110 H HEMOGLOBIN [id number] 14:21:00* Test Item Value Reference Range Interpretation Comme nts HEMOGLOBIN ABG (test code = HGB/ABG) 8.1 G/DL 11.0-15.0 L [id number] 14:21:00* Test Item Value Reference Range Interpretation Comme nts HEMATOCRIT (test code = HCT/ABG) 24 % 33.0-45.0 L POC LACTIC [id number] 14:21:00* Test Item Value Reference Range Interpretation Comme nts POC LACTIC ACID (test code = POCLAC) 1.2 mmol/l 0.9-1.7 N POC ARTERIAL BLOOD [id number] 11:49:00* Test Item Value Reference Range Interpretation Comme nts POC ARTERIAL BLOOD GAS PH (t est code = POCPHA) 7.348 7.35-7.45 L POC ARTERIAL BLOOD GAS PCO2 (test code = YOLMEF6A) 69.3 mmHg 35.0-45 HH POC TCO2 ARTERIAL (test code = POCTCO2) 40.0 POC ARTERIAL BLOOD GAS PO2 ( test code = DNUWF9M) 91.0 mmHg 80-100.0 N POC HCO3 ARTERIAL (test code = SSUVGT2Y) 37.9 MMOL/L 22.0-26.0 HH POC BASE EXCESS (test code = POCBEA) 12.3 MMOL/L -4.0-4.0 H POC O2 SATURATION (test code = POCO2S) 96.0 % 90-100 N FIO2 (test code = FIO2A) 60 % PaO2/FiO2 (test code = FKG0FKU8) 151.66 mm/Hg ABG DELIVERY (test code = MAAME) BiPAP ABG PEEP (test code = PEEPA) 8 cmH2O ABG PRESSURE SUPPORT (test c ode = PSABG) 14 cmH2O ABG TEMPERATURE (test code = TEMPA) 99 F ABG SITE (test code = SITEA) Art Line BASIC METABOLIC [id number] 11:49:00* Test Item Value Reference Range Interpretation [...] = POCGLU) 185 MG/DL 70-110 H HEMOGLOBIN [id number] 11:49:00* Test Item Value Reference Range Interpretation Comme nts HEMOGLOBIN ABG (test code = HGB/ABG) 8.7 G/DL 11.0-15.0 L [id number] 11:49:00* Test Item Value Reference Range Interpretation Comme nts HEMATOCRIT (test code = HCT/ABG) 26 % 33.0-45.0 L POC LACTIC [id number] 11:49:00* Test Item Value Reference Range Interpretation Comme nts POC LACTIC ACID (test code = POCLAC) 0.7 mmol/l 0.9-1.7 L GLUCOSE [id number] 09:32:00* Test Item Value Reference Range Interpretation Comme nts GLUCOSE BEDSIDE (test code = GLUBED) 143 MG/DL 70-110 H Performed by cer tified gas burner operator at [facility] POC ARTERIAL BLOOD [id number] 09:21:00* Test Item Value Reference Range Interpretation Comme nts POC ARTERIAL BLOOD GAS PH (t est code = POCPHA) 7.376 7.35-7.45 N POC ARTERIAL BLOOD GAS PCO2 (test code = CLMXIO3O) 65.5 mmHg 35.0-45 HH POC TCO2 ARTERIAL (test code = POCTCO2) 40.5 POC ARTERIAL BLOOD GAS PO2 ( test code = EAUGI5L) 84.5 mmHg 80-100.0 N POC HCO3 ARTERIAL (test code = GISAKW3Y) 38.5 MMOL/L 22.0-26.0 HH POC BASE EXCESS (test code = POCBEA) 13.2 MMOL/L -4.0-4.0 H POC O2 SATURATION (test code = POCO2S) 95.7 % 90-100 N FIO2 (test code = FIO2A) 70 % PaO2/FiO2 (test code = VOK3KIY0) 120.71 mm/Hg ABG DELIVERY (test code = MAAME) BiPAP ABG TIDAL VOLUME (test code = TVA) 14 ml ABG PEEP (test code = PEEPA) 8 cmH2O ABG TEMPERATURE (test code = TEMPA) 98.1 F ABG SITE (test code = SITEA) Art Line MARTIN'S TEST (test code = ALLENS) N/A BASIC METABOLIC [id number] 09:21:00* Test Item Value Reference Range Interpretation [...] = POCGLU) 157 MG/DL 70-110 H HEMOGLOBIN [id number] 09:21:00* Test Item Value Reference Range Interpretation Comme nts HEMOGLOBIN ABG (test code = HGB/ABG) 8.9 G/DL 11.0-15.0 L [id number] 09:21:00* Test Item Value Reference Range Interpretation Comme nts HEMATOCRIT (test code = HCT/ABG) 26 % 33.0-45.0 L POC LACTIC [id number] 09:21:00* Test Item Value Reference Range Interpretation Comme nts POC LACTIC ACID (test code = POCLAC) 0.7 mmol/l 0.9-1.7 L GLUCOSE [id number] 07:04:00* Test Item Value Reference Range Interpretation Comme [facility] GLUCOSE BEDSIDE (test code = GLUBED) 142 MG/DL 70-110 H Performed by cer arlene gas burner operator at [facility] POC ARTERIAL BLOOD [id number] 05:37:00* Test Item Value Reference Range Interpretation Comme nts POC ARTERIAL BLOOD GAS PH (t est code = POCPHA) 7.363 7.35-7.45 N POC ARTERIAL BLOOD GAS PCO2 (test code = IVMCJB6A) 64.5 mmHg 35.0-45 HH POC TCO2 ARTERIAL (test code = POCTCO2) 38.7 POC ARTERIAL BLOOD GAS PO2 ( test code = BVPWS2P) 60.3 mmHg 80-100.0 L POC HCO3 ARTERIAL (test code = JYQWOC9Q) 36.8 MMOL/L 22.0-26.0 HH POC BASE EXCESS (test code = POCBEA) 11.4 MMOL/L -4.0-4.0 H POC O2 SATURATION (test code = POCO2S) 88.7 % 90-100 L FIO2 (test code = FIO2A) 80 % PaO2/FiO2 (test code = MOA3TGQ5) 75.37 mm/Hg ABG DELIVERY (test code = MAAME) HFNC ABG TEMPERATURE (test code = TEMPA) 98.6 F ABG SITE (test code = SITEA) R Radial MARTIN'S TEST (test code = ALLENS) Positive BASIC METABOLIC [id number] 05:37:00* Test Item Value Reference Range Interpretation [...] = POCGLU) 170 MG/DL 70-110 H HEMOGLOBIN [id number] 05:37:00* Test Item Value Reference Range Interpretation Comme nts HEMOGLOBIN ABG (test code = HGB/ABG) 8.3 G/DL 11.0-15.0 L [id number] 05:37:00* Test Item Value Reference Range Interpretation Comme nts HEMATOCRIT (test code = HCT/ABG) 24 % 33.0-45.0 L POC LACTIC [id number] 05:37:00* Test Item Value Reference Range Interpretation Comme nts POC LACTIC ACID (test code = POCLAC) 0.8 mmol/l 0.9-1.7 L BASIC METABOLIC [id number] 03:53:00* Test Item Value Reference Range Interpretation [...] code = CA) 10.8 mg/dL 8.0-10.5 H [id number] 03:53:00* Test Item Value Reference Range Interpretation Comme nts MAGNESIUM (test code = MAG) 2.31 mg/dL 1.80-2.40 N CBC W/AUTO [id number] 03:35:00* Test Item Value Reference Range Interpretation [...] = MDIFF) NO - XR CHEST 1 [id number] 00:00:00 [facility] : 1945 Sex: F FAX: Jeffry Pennington MD [phone] [place]: St: ADM FAX: Abdiaziz Christiansen MD [phone] FAX: René Blancas [phone] FAX: Colt Aguillno MD [phone] Name: KIAH GILES [facility] : 1945 Age/S: 76/F [address] [place] [address] Unit #: [id number] Loc: G.2205 [place] [address] Phys: René Villareal MD Acct: [id number] Dis Date: Status: ADM IN PHONE #: [phone] Exam Date: 12/24/2021630 FAX #: [phone] Reason: Cardiac Surgery Post Op EXAMS: CPT CODE: [id number] XR CHEST1 V [id number] PROCEDURE INFORMATION: Exam: XR Chest Exam date [...] projection/rotation. The pulmonary vasculature is ill-defined. Bones/joints: Sternotomy wires are intact. IMPRESSION: 1. Stable postoperative chest. 2. Bilateral pulmonary opacities with central lung zone predominance compatible with edema. Inflammation in thedifferential. Retrocardiac atelectasis versus consolidation. 3. Right greater than left pleural effusions. at 0926 Reported and signed by: Jasmeet Carlisle M.D. CC: Jeffry Hsu MD; Abdiaziz Fuchs MD; René Villareal MD; Colt Vail MD Technologist: Hali Leon RT(R) Trnscrd Date/Time/By: 12/24/2021 (925) : By: Catherine Orig Print D/T: S: 12/24/2021 (925) PAGE 1 Signed ReportGLUCOSE [id number] 22:47:00* Test Item Value Reference Range Interpretation Comme nts GLUCOSE BEDSIDE (test code = GLUBED) 162 MG/DL 70-110 H Performed by anna gibbons at [facility] BASIC METABOLIC [id number] 21:26:00* Test Item Value Reference Range Interpretation [...] = POCGLU) 176 MG/DL 70-110 H HEMOGLOBIN [id number] 21:26:00* Test Item Value Reference Range Interpretation Comme nts HEMOGLOBIN ABG (test code = HGB/ABG) 8.8 G/DL 11.0-15.0 L [id number] 21:26:00* Test Item Value Reference Range Interpretation Comme nts HEMATOCRIT (test code = HCT/ABG) 26 % 33.0-45.0 L POC LACTIC [id number] 21:26:00* Test Item Value Reference Range Interpretation Comme nts POC LACTIC ACID (test code = POCLAC) 0.8 mmol/l 0.9-1.7 L POC VENOUS BLOOD [id number] 21:26:00* Test Item Value Reference Range Interpretation Comme nts POC VENOUS BLOOD GAS PH (ny t code = POCPHV) 7.346 7.33-7.45 N POC VENOUS BLOOD GAS PCO2 (t est code = KJWDSM8T) 70.7 mmHg 43-47 HH POC VENOUS BLOOD GAS PO2 (te st code = TTSJD6P) 39.7 mmHG 10-50 N POC TCO2 VENOUS (test code = DITRPX5A) 40.8 POC HCO3 VENOUS (test code = VNRMFC0T) 38.6 MMOL/L 22-27 H POC BASE EXCESS VENOUS (test code = POCBEV) 13.0 MMOL/L -4.0-4.0 H POC O2 SATURATION VENOUS (te st code = ZFTX1XZ) 68.8 % 60-80 N VENOUS BLOOD GAS FIO2 (test code = FIO2V) 70 % VENOUS BLOOD GAS DELIVERY (t est code = DELV) HFNC VENOUS BLOOD GAS TEMP (test code = TEMPV) 98.6 F VENOUS BLOOD GAS SITE (test code = SITEV) Central Line GLUCOSE [id number] 18:46:00* Test Item Value Reference Range Interpretation Comme nts GLUCOSE BEDSIDE (test code = GLUBED) 163 MG/DL 70-110 H Performed by cer tified gas burner operator at [facility] BASIC METABOLIC [id number] 18:17:00* Test Item Value Reference Range Interpretation [...] = POCGLU) 186 MG/DL 70-110 H HEMOGLOBIN [id number] 18:17:00* Test Item Value Reference Range Interpretation Comme nts HEMOGLOBIN ABG (test code = HGB/ABG) 8.8 G/DL 11.0-15.0 L [id number] 18:17:00* Test Item Value Reference Range Interpretation Comme nts HEMATOCRIT (test code = HCT/ABG) 26 % 33.0-45.0 L POC LACTIC [id number] 18:17:00* Test Item Value Reference Range Interpretation Comme nts POC LACTIC ACID (test code = POCLAC) 0.7 mmol/l 0.9-1.7 L POC VENOUS BLOOD [id number] 18:17:00* Test Item Value Reference Range Interpretation Comme nts MARTIN'S TEST (test code = ALLENS) N/A POC VENOUS BLOOD GAS PH (ny t code = POCPHV) 7.308 7.33-7.45 L POC VENOUS BLOOD GAS PCO2 (t est code = APRRHS0G) 75.8 mmHg 43-47 HH POC VENOUS BLOOD GAS PO2 (te st code = SPUJN0K) 37.3 mmHG 10-50 N POC TCO2 VENOUS (test code = OQMHAG9Z) 40.5 POC HCO3 VENOUS (test code = TWXENS6X) 38.1 MMOL/L 22-27 H POC BASE EXCESS VENOUS (test code = POCBEV) 11.8 MMOL/L -4.0-4.0 H POC O2 SATURATION VENOUS (te st code = FIQC3FE) 63.8 % 60-80 N VENOUS BLOOD GAS FIO2 (test code = FIO2V) 70 % VENOUS BLOOD GAS DELIVERY (t est code = DELV) HFNC VBG TIDAL VOLUME (test code = TVV) 60 ml VENOUS BLOOD GAS TEMP (test code = TEMPV) 97.9 F VENOUS BLOOD GAS SITE (test code = SITEV) Central Line GLUCOSE [id number] 17:37:00* Test Item Value Reference Range Interpretation Comme nts GLUCOSE BEDSIDE (test code = GLUBED) 150 MG/DL 70-110 H Performed by cer tified gas burner operator at [facility] BASIC METABOLIC [id number] 15:37:00* Test Item Value Reference Range Interpretation [...] code = CA) 10.4 mg/dL 8.0-10.5 N [id number] 15:37:00* Test Item Value Reference Range Interpretation Comme nts MAGNESIUM (test code = MAG) 2.34 mg/dL 1.80-2.40 N GLUCOSE [id number] 15:19:00* Test Item Value Reference Range Interpretation Comme nts GLUCOSE BEDSIDE (test code = GLUBED) 209 MG/DL 70-110 H Performed by [employer] gas burner operator at [facility] BASIC METABOLIC [id number] 13:47:00* Test Item Value Reference Range Interpretation [...] = POCGLU) 326 MG/DL 70-110 H HEMOGLOBIN [id number] 13:47:00* Test Item Value Reference Range Interpretation Comme nts HEMOGLOBIN ABG (test code = HGB/ABG) 9.0 G/DL 11.0-15.0 L [id number] 13:47:00* Test Item Value Reference Range Interpretation Comme nts HEMATOCRIT (test code = HCT/ABG) 27 % 33.0-45.0 L POC LACTIC [id number] 13:47:00* Test Item Value Reference Range Interpretation Comme nts POC LACTIC ACID (test code = POCLAC) 1.1 mmol/l 0.9-1.7 N POC VENOUS BLOOD [id number] 13:47:00* Test Item Value Reference Range Interpretation Comme nts POC VENOUS BLOOD GAS PH (ny t code = POCPHV) 7.298 7.33-7.45 L POC VENOUS BLOOD GAS PCO2 (t est code = JHBHEC2Y) 69.6 mmHg 43-47 HH POC VENOUS BLOOD GAS PO2 (te st code = TJRFC0S) 33.8 mmHG 10-50 N POC TCO2 VENOUS (test code = TEEWDC6G) 36.6 POC HCO3 VENOUS (test code = ORJJMM0U) 34.4 MMOL/L 22-27 H POC BASE EXCESS VENOUS (test code = POCBEV) 7.8 MMOL/L -4.0-4.0 H POC O2 SATURATION VENOUS (te st code = NQXS2MJ) 58.7 % 60-80 L VENOUS BLOOD GAS FIO2 (test code = FIO2V) 70 % VENOUS BLOOD GAS DELIVERY (t est code = DELV) HFNC VBG TIDAL VOLUME (test code = TVV) 60 ml VENOUS BLOOD GAS TEMP (test code = TEMPV) 97.3 F VENOUS BLOOD GAS SITE (test code = SITEV) Central Line GLUCOSE [id number] 13:38:00* Test Item Value Reference Range Interpretation Comme nts GLUCOSE BEDSIDE (test code = GLUBED) 236 MG/DL 70-110 H Performed by anna gibbons at [facility] [id number] 12:35:00* Test Item Value Reference Range Interpretation Comme bev SURGICAL (test code = SR) R UN DATE: 12/23/21 [place] - LAB PAGE 1 RUN TIME: 1235 Specimen Inquiry RUN USER: INTERFACE P ATIENT: CHANKIAH LOC: EVAN U #: [id number] AGE/SX: 76/F ROOM: [facility] RE12/17/21REG DR: Jeffry Hsu MD : 43 BED: 1 DIS: STATUS: ADM IN TLOC: SPEC #: [id number] RECD: 12/22/21 STATUS: SOUT REQ #: [id number] ARA: 12/19/21- SUBM DR: Jeffry Hsu MD ENTERED: 12/22/21 SP TYPE: SURGICAL OTHR DR: Aruna Fortune MD,Suki Fuchs,René Capps MD, MD, Anas MD Raslan, Saleem MDORDERED: 10541, ANATOMIC SPEC COPIES TO: Aruna Fortune MD [address] [place] [address] Jeffry Hsu MD [address] [place] [address] Suki Fuchs MD [address] [place] [address] Abdiaziz Fuchs MD [address] [facility] [address] [address] René Villareal MD [address] [facility]. [address] [place] [address] Jd Alva MD [address] [place] [address] Colt Vail MD [address] [facility] [address] [place] [address] CONTINUED ON NEXT PAGE R UN DATE: 12/23/21 [facility] PAGE 2 RUN TIME: 1235 Specimen Inquiry RUN USER: INTERFACE S PEC #: [id number] PATIENT: KIAH GILES #[id number] (Continued) PROCEDURES: 40126 (12/22/21) TISSUES: A. PERICARDIUM BIOPSY CLINICAL HISTORY SAME FINAL DIAGNOSIS Pericardium, excision: Benign fibroconnective tissue with focal hemorrhage and mild acuteinflammation. GROSS DESCRIPTION Received in formalin labeled "pericardium" include 2 fragments of irregular shaped graham-graymembranous tissue, aggregating to 7.5 cm in maximum dimension, with assistance representative sectionssubmitted in (A). Technical component performed at [facility],[address] [place] [address] Unless gross only, the diagnosis is based [...] Herzog 12/23/21 1235 END OF REPORT GLUCOSE [id number] 12:30:00* Test Item Value Reference Range Interpretation Comme nts GLUCOSE BEDSIDE (test code = GLUBED) 250 MG/DL 70-110 H Performed by cer tified gas burner operator at [facility] GLUCOSE [id number] 09:06:00* Test Item Value Reference Range Interpretation Comme nts GLUCOSE BEDSIDE (test code = GLUBED) 232 MG/DL 70-110 H Performed by cer tified gas burner operator at [facility] GLUCOSE [id number] 06:43:00* Test Item Value Reference Range Interpretation Comme nts GLUCOSE BEDSIDE (test code = GLUBED) 213 MG/DL 70-110 H Performed by cer tified gas burner operator at [facility] CBC W/AUTO [id number] 05:12:00* Test Item Value Reference Range Interpretation [...] c ode = MDIFF) NO BASIC METABOLIC [id number] 04:47:00* Test Item Value Reference Range Interpretation [...] code = CA) 10.5 mg/dL 8.0-10.5 N [id number] 04:47:00* Test Item Value Reference Range Interpretation Comme nts MAGNESIUM (test code = MAG) 2.42 mg/dL 1.80-2.40 H POC ARTERIAL BLOOD [id number] 04:01:00* Test Item Value Reference Range Interpretation Comme nts POC ARTERIAL BLOOD GAS PH (t est code = POCPHA) 7.313 7.35-7.45 L POC ARTERIAL BLOOD GAS PCO2 (test code = TYDGQI1N) 61.5 mmHg 35.0-45 HH POC TCO2 ARTERIAL (test code = POCTCO2) 33.1 POC ARTERIAL BLOOD GAS PO2 ( test code = VKSIS8I) 65.8 mmHg 80-100.0 L POC HCO3 ARTERIAL (test code = VZBCUN6W) 31.2 MMOL/L 22.0-26.0 HH POC BASE EXCESS (test code = POCBEA) 5.0 MMOL/L -4.0-4.0 H POC O2 SATURATION (test code = POCO2S) 90.0 % 90-100 N FIO2 (test code = FIO2A) 73 % PaO2/FiO2 (test code = LEO0TEN4) 90.13 mm/Hg ABG DELIVERY (test code = MAAME) HFNC ABG SITE (test code = SITEA) R Radial MARTIN'S TEST (test code = ALLENS) Positive BASIC METABOLIC [id number] 04:01:00* Test Item Value Reference Range Interpretation [...] = POCGLU) 234 MG/DL 70-110 H HEMOGLOBIN [id number] 04:01:00* Test Item Value Reference Range Interpretation Comme nts HEMOGLOBIN ABG (test code = HGB/ABG) 11.2 G/DL 11.0-15.0 N [id number] 04:01:00* Test Item Value Reference Range Interpretation Comme nts HEMATOCRIT (test code = HCT/ABG) 33 % 33.0-45.0 N POC LACTIC [id number] 04:01:00* Test Item Value Reference Range Interpretation Comme nts POC LACTIC ACID (test code = POCLAC) 0.8 mmol/l 0.9-1.7 L GLUCOSE [id number] 00:43:00* Test Item Value Reference Range Interpretation Comme nts GLUCOSE BEDSIDE (test code = GLUBED) 222 MG/DL 70-110 H Performed by cer arlene gas burner operator at [facility] - XR ABDOMEN 1V (KUB)2021-12-23 00:00:00 [facility] 1945 Sex: F FAX: Jeffry Pennington MD [phone] [place]: St: ADM FAX: Abdiaziz Christiansen MD [phone] FAX: Solange Sweeney MD [phone] FAX: Colt Aguillon MD [phone] Name: KIAH GILES [facility] : 1945 Age/S: 76/F [address] [place] [address] Unit #: [id number] Loc: [address] [place] [address] Phys: Solange Mohamud MD Acct: [id number] Dis Date: Status: ADM IN PHONE #: [phone] Exam Date: 12/24/195 FAX #: [phone] Reason: NG TUBE PLACEMENT EXAMS: CPT CODE: [id number] XR ABDOMEN 1V (KUB) 91345 PROCEDURE INFORMATION: Exam: XR Abdomen Exam date and time: 12/23/2021 12:38 AM Age: 76 years old Clinical indication: Device placement; Gi device; Nasogastric tube; Additional info: Ng tube p lacement TECHNIQUE: Imaging protocol: Radiologic exam of the abdomen. Views: Frontal supine view ofthe abdomen. 1 View. COMPARISON: CR XR ABDOMEN AP 1 V 12/22/2021 9:26 PM FINDINGS: Tubes, cathetersand devices: A nasogastric tube terminates overlying the stomach. Gastrointestinal tract: There aredilated small bowel loops in the left mid abdomen and left lower quadrant. Intraperitoneal space: No evidence of pneumoperitoneum or soft tissue masses. Bones/joints: Unremarkable. Soft tissues: No abnormal radiopaque densities. IMPRESSION: 1. A nasogastric tube terminates overlying the stomach. 2.Dilated small bowel loops in the left lower quadrant. at 0122 Reported and signed by: Sanchez Mendiola M.D CC: Jeffry Hsu MD; Abdiaziz Fuchs MD; Solange Mohamud MD; Colt Vail MD Technologist: RT Elba(R) Trnscrd Date/Time/By: 12/23/2021 (121) : By: [email or web address] Orig Print D/T: S: 12/23/2021 (012) PAGE 1 Signed Report- XR CHEST 1 [id number] 00:00:00 [facility] : 1945 Sex: F FAX: Jeffry Pennington MD [phone] [place]: St: ADM FAX: Abdiaziz Christiansen MD [phone] FAX: René Blancas [phone] FAX: Colt Aguillon MD [phone] Name: KIAH GILES [facility] : 1945 Age/S: 76/F [address] [place] [address] Unit #: [id number] Loc: G.[address] [place] [address] Phys: René Villareal MD Acct: [id number] Dis Date: Status: ADM IN PHONE #: [phone] Exam Date: 12/13 0655 FAX #: [phone] Reason: Cardiac Surgery Post Op EXAMS: CPT CODE: [id number] XR CHEST1 V 34154 PROCEDURE INFORMATION: Exam: XR Chest Exam date and time: 12/23/2021 5:07 AM Age: 76 years old Clinical indication: Other: Cardiac surgery post op TECHNIQUE: Imaging protocol: Radiologic exam of the chest. Views: 1 view. COMPARISON: CR XR CHEST 1V 12/22/2021 5:14 AM FINDINGS: Tubes, catheters and devices: Chest tubes removed. Kennard-Juanita catheter removed. Jugular introducer sheath remains in [...] MD Technologist: RT Caroline(R) Trnscrd Date/Time/By: 12/23/2021 (805) : By: [email or web address] Orig Print D/T: S: 12/23/2021 (07) PAGE [...] CALCIUM (test code = CA) mg/dL 8.0-10.5 [id number] 23:05:00* Test Item Value Reference Range Interpretation Comme nts MAGNESIUM (test code = MAG) mg/dL 1.80-2.40 CBC W/AUTO [id number] 22:57:00* Test Item Value Reference Range Interpretation [...] REQUIRED (test code = MDIFF) NO CALCIUM [id number] 22:56:00* Test Item Value Reference Range Interpretation Comme nts CALCIUM IONIZED (test code = TYREE) 1.10 MMOL/L 1.09-1.30 N GLUCOSE [id number] 21:52:00* Test Item Value Reference Range Interpretation Comme nts GLUCOSE BEDSIDE (test code = GLUBED) 168 MG/DL 70-110 H Performed by cer tified gas burner operator at [facility] GLUCOSE [id number] 18:08:00* Test Item Value Reference Range Interpretation Comme nts GLUCOSE BEDSIDE (test code = GLUBED) 238 MG/DL 70-110 H Performed by cer tified gas burner operator at [facility] BASIC METABOLIC [id number] 17:53:00* Test Item Value Reference Range Interpretation [...] = POCGLU) 236 MG/DL 70-110 H HEMOGLOBIN [id number] 17:53:00* Test Item Value Reference Range Interpretation Comme nts HEMOGLOBIN ABG (test code = HGB/ABG) 11.8 G/DL 11.0-15.0 N [id number] 17:53:00* Test Item Value Reference Range Interpretation Comme nts HEMATOCRIT (test code = HCT/ABG) 35 % 33.0-45.0 N POC LACTIC [id number] 17:53:00* Test Item Value Reference Range Interpretation Comme nts POC LACTIC ACID (test code = POCLAC) 0.7 mmol/l 0.9-1.7 L POC VENOUS BLOOD [id number] 17:53:00* Test Item Value Reference Range Interpretation Comme nts MARTIN'S TEST (test code = ALLENS) N/A POC VENOUS BLOOD GAS PH (ny t code = POCPHV) 7.282 7.33-7.45 L POC VENOUS BLOOD GAS PCO2 (t est code = TCXUST6P) 61.7 mmHg 43-47 HH POC VENOUS BLOOD GAS PO2 (te st code = BHTQZ7Q) 37.2 mmHG 10-50 N POC TCO2 VENOUS (test code = ZHOCLF9M) 31.2 POC HCO3 VENOUS (test code = TNNQFD9N) 29.3 MMOL/L 22-27 H POC BASE EXCESS VENOUS (test code = POCBEV) 2.5 MMOL/L -4.0-4.0 N POC O2 SATURATION VENOUS (te st code = EEKT9BV) 63.2 % 60-80 N VENOUS BLOOD GAS FIO2 (test code = FIO2V) 40 % VENOUS BLOOD GAS DELIVERY (t est code = DELV) BiPAP VBG VENT MODE (test code = MODEV) BIVENT VENOUS BLOOD GAS TEMP (test code = TEMPV) 98 F VENOUS BLOOD GAS SITE (test code = SITEV) Central Line BASIC METABOLIC [id number] 15:58:00* Test Item Value Reference Range Interpretation [...] = POCGLU) 371 MG/DL 70-110 H HEMOGLOBIN [id number] 15:58:00* Test Item Value Reference Range Interpretation Comme nts HEMOGLOBIN ABG (test code = HGB/ABG) 8.1 G/DL 11.0-15.0 L [id number] 15:58:00* Test Item Value Reference Range Interpretation Comme nts HEMATOCRIT (test code = HCT/ABG) 24 % 33.0-45.0 L POC LACTIC [id number] 15:58:00* Test Item Value Reference Range Interpretation Comme nts POC LACTIC ACID (test code = POCLAC) 0.6 mmol/l 0.9-1.7 L POC VENOUS BLOOD [id number] 15:58:00* Test Item Value Reference Range Interpretation Comme nts MARTIN'S TEST (test code = ALLENS) N/A POC VENOUS BLOOD GAS PH (ny t code = POCPHV) 7.226 7.33-7.45 L POC VENOUS BLOOD GAS PCO2 (t est code = JWXPOT4I) 74.1 mmHg 43-47 HH POC VENOUS BLOOD GAS PO2 (te st code = SJVQT3W) 36.8 mmHG 10-50 N POC TCO2 VENOUS (test code = MUBPJI3V) 33.2 POC HCO3 VENOUS (test code = DICMUO1P) 30.9 MMOL/L 22-27 H POC BASE EXCESS VENOUS (test code = POCBEV) 3.2 MMOL/L -4.0-4.0 N POC O2 SATURATION VENOUS (te st code = WTNZ8IT) 58.2 % 60-80 L VENOUS BLOOD GAS [...] (test code = SITEV) Central Line GLUCOSE [id number] 11:37:00* Test Item Value Reference Range Interpretation Comme nts GLUCOSE BEDSIDE (test code = GLUBED) 258 MG/DL 70-110 H Performed by [employer] gas burner operator at [facility] [id number] 07:18:00* Test Item Value Reference Range Interpretation Comme nts PHOSPHOROUS (test code = PHOS) 3.4 MG/DL 2.5-4.9 N GLUCOSE [id number] 07:01:00* Test Item Value Reference Range Interpretation Comme nts GLUCOSE BEDSIDE (test code = GLUBED) 211 MG/DL 70-110 H Performed by [employer] gas burner operator at [facility] CBC W/AUTO [id number] 05:28:00* Test Item Value Reference Range Interpretation [...] c ode = MDIFF) NO BASIC METABOLIC [id number] 05:03:00* Test Item Value Reference Range Interpretation [...] mg/dL 8.0-10.5 N COMMENTS: POD #1HEPATIC FUNCTION [id number] 05:03:00* Test Item Value Reference Range Interpretation [...] ALKP) 57 IUnit/L 20-125 N COMMENTS: POD #[id number] 05:03:00* Test Item Value Reference Range Interpretation Comme nts MAGNESIUM (test code = MAG) 2.20 mg/dL 1.80-2.40 N COMMENTS: POD #1POC ARTERIAL BLOOD [id number] 04:35:00* Test Item Value Reference Range Interpretation Comme nts POC ARTERIAL BLOOD GAS PH (t est code = POCPHA) 7.334 7.35-7.45 L POC ARTERIAL BLOOD GAS PCO2 (test code = XTQXDZ3B) 55.7 mmHg 35.0-45 HH POC TCO2 ARTERIAL (test code = POCTCO2) 31.4 POC ARTERIAL BLOOD GAS PO2 ( test code = IOVFH4M) 88.6 mmHg 80-100.0 N POC HCO3 ARTERIAL (test code = HZAUUW1A) 29.7 MMOL/L 22.0-26.0 HH POC BASE EXCESS (test code = POCBEA) 3.8 MMOL/L -4.0-4.0 N POC O2 SATURATION (test code = POCO2S) 96.0 % 90-100 N FIO2 (test code = FIO2A) 60 % PaO2/FiO2 (test code = UFC4ZPJ0) 147.66 mm/Hg ABG DELIVERY (test code = MAAME) BiPAP ABG VENT RESP RATE (test cod e = RRA) 25 /MIN ABG TIDAL VOLUME (test code = TVA) 550 ml ABG TEMPERATURE (test code = TEMPA) 98.4 F ABG SITE (test code = SITEA) Art Line BASIC METABOLIC [id number] 04:35:00* Test Item Value Reference Range Interpretation [...] = POCGLU) 224 MG/DL 70-110 H HEMOGLOBIN [id number] 04:35:00* Test Item Value Reference Range Interpretation Comme nts HEMOGLOBIN ABG (test code = HGB/ABG) 8.6 G/DL 11.0-15.0 L [id number] 04:35:00* Test Item Value Reference Range Interpretation Comme nts HEMATOCRIT (test code = HCT/ABG) 25 % 33.0-45.0 L POC LACTIC [id number] 04:35:00* Test Item Value Reference Range Interpretation Comme nts POC LACTIC ACID (test code = POCLAC) 0.9 mmol/l 0.9-1.7 N GLUCOSE [id number] 00:16:00* Test Item Value Reference Range Interpretation Comme nts GLUCOSE BEDSIDE (test code = GLUBED) 178 MG/DL 70-110 H Performed by cer tified gas burner operator at [facility] POC ARTERIAL BLOOD [id number] 00:06:00* Test Item Value Reference Range Interpretation Comme nts POC ARTERIAL BLOOD GAS PH (t est code = POCPHA) 7.330 7.35-7.45 L POC ARTERIAL BLOOD GAS PCO2 (test code = ERUXDN8V) 51.8 mmHg 35.0-45 HH POC TCO2 ARTERIAL (test code = POCTCO2) 29.1 POC ARTERIAL BLOOD GAS PO2 ( test code = HOMRJ1T) 69.4 mmHg 80-100.0 L POC HCO3 ARTERIAL (test code = PPOJPU6Q) 27.5 MMOL/L 22.0-26.0 H POC BASE EXCESS (test code = POCBEA) 1.4 MMOL/L -4.0-4.0 N POC O2 SATURATION (test code = POCO2S) 92.5 % 90-100 N FIO2 (test code = FIO2A) 60 % PaO2/FiO2 (test code = NOI8PSK3) 115.66 mm/Hg ABG DELIVERY (test code = MAAME) BiPAP ABG VENT RESP RATE (test cod e = RRA) 25 /MIN ABG TIDAL VOLUME (test code = TVA) 550 ml ABG TEMPERATURE (test code = TEMPA) 97.7 F ABG SITE (test code = SITEA) Art Line BASIC METABOLIC [id number] 00:06:00* Test Item Value Reference Range Interpretation [...] = POCGLU) 196 MG/DL 70-110 H HEMOGLOBIN [id number] 00:06:00* Test Item Value Reference Range Interpretation Comme nts HEMOGLOBIN ABG (test code = HGB/ABG) 8.3 G/DL 11.0-15.0 L [id number] 00:06:00* Test Item Value Reference Range Interpretation Comme nts HEMATOCRIT (test code = HCT/ABG) 24 % 33.0-45.0 L POC LACTIC [id number] 00:06:00* Test Item Value Reference Range Interpretation Comme nts POC LACTIC ACID (test code = POCLAC) 0.8 mmol/l 0.9-1.7 L - XR ABDOMEN 1V (KUB)2021-12-22 00:00:00 [facility] : 1945 Sex: F FAX: Jeffry Pennington MD [phone] [place]: St: ADM FAX: Abdiaziz Christiansen MD [phone] FAX: Solange Sawyer MD [phone] FAX: Colt Aguillon MD [phone] Name: KIAH GILES [facility] [place] : 1945 Age/S: 76/F [address] [place] [address] Unit #: [id number] Loc: [address] [place] [address] Phys: Solange Mohamud MD Acct: [id number] Dis Date: Status: ADM IN PHONE #: [phone] Exam Date: 12/22/20212133 FAX #: [phone] Reason: NAUSEA EXAMS: CPT CODE: [id number] XR ABDOMEN 1V (KUB) 04536 PROCEDURE INFORMATION: Exam: XR Abdomen Exam date [...] better assess for small bowel obstruction at 2154 Reported and signed by: Anoop Lilly M.D. CC: Jeffry Hsu MD; Abdiaziz Fuchs MD; Solange Mohamud MD; Colt Vail MD Technologist: RT Savana(R) Trnscrd Date/Time/By: 12/22/2021 (2153) : By: [email or web address] Orig Print D/T: S: 12/22/2021 ( 2154) PAGE 1 Signed Report- US SOFT TISSUE [id number] 00:00:00 [facility] : 1945 Sex: F Name: KIAH GILES [facility] [place] : 1945 Age/S: 76 / F [address] [place] [address] Blvd Unit #: [id number] Loc: [place] [address] Phys: Jd Alva MD Acct: [id number] Dis Date: Status: ADM IN PHONE #: [phone] Exam Date: 12/22/20211106 FAX #: [phone] Reason: right pleural effusion EXAMS: CPT CODE: [id number] US SOFT TISSUE TORSO [id number] PROCEDURE INFORMATION: Exam: US Chest, Pleural Space [...] Jd Alva MD; Colt Vail MD Technologist: MACK Moreno(AB)(OB) Trnscb Date/Time: 12/22/2021 (1124) [email or web address] Orig Print D/T: S: 12/22/2021 (1124) Probe: PAGE 1 Signed Report- XR CHEST 1 V 2021-12-22 00:00:00 [facility] : 1945 Sex: F FAX: Jeffry Pennington MD [phone] [place]: St: ADM FAX: Abdiaziz Christiansen MD [phone] FAX: René Bright [phone] FAX: Colt Aguillon MD [phone] Name: KIAH GILES [facility] : 1945 Age/S: 76/F [address] [place] [address] Unit #: [id number] Loc: G.[address] [place] [address] Phys: René Villareal MD Acct: [id number] Dis Date: Status: ADM IN PHONE #: [phone] Exam Date: 12/202135 FAX #: [phone] Reason: Cardiac Surgery Post Op EXAMS: CPT CODE: [id number] XR CHEST 1 V 89654 PROCEDURE INFORMATION: Exam: XR Chest Exam date and time: 12/22/2021 5:14 AM Age: 76 years old Clinical indication: Other: Cardiac surgery post op TECHNIQUE: Imaging protocol: Radiologic exam of the chest. Views: 1 view. COMPARISON: CR XR CHEST 1V 12/21/2021 5:41 AM FINDINGS: Tubes, catheters and devices: Right IJ Kennard-Juanita introducer and Kennard-Juanita catheter with the catheter tip at theright main pulmonary artery. Right-sided thoracostomy tube. Biventricular [...] Signed Report (CONTINUED) FAX: Jeffry Pennington MD [phone] [place]: St: [facility] FAX: Abdiaziz Christiansen MD [phone] FAX: René Blancas [phone] FAX: Colt Aguillon MD [phone] Name: [facility] [place] : 1945 Age/S: 76/F [address] [place] [address] Bl Unit #: [id number] Loc: [address] [address] Phys: René Villareal MD Acct: [id number] Dis Date: Status: ADM IN PHONE #: [phone] Exam Date: 12/22/2021 0635 FAX #: [phone] Reason: Cardiac Surgery Post Op EXAMS: CPT CODE: [id number] XR CHEST 1 [id number] (Continued) CC: Jeffry Hsu MD; Abdiaziz Fuchs MD; René Villareal MD; Colt Vail MD Technologist: Hali Leon RT(R) Trnscrd Date/Time/By: 12/22/2021 (904) : By: [email or web address] Orig Pr int D/T: S: 12/22/2021 (904) PAGE 2 Signed ReportPOC ARTERIAL BLOOD GAS 2021-12-21 21:10:00* Test Item Value Reference Range Interpretation Comme nts POC ARTERIAL BLOOD GAS PH (t est code = POCPHA) 7.306 7.35-7.45 L POC ARTERIAL BLOOD GAS PCO2 (test code = MVDQRJ4Y) 56.1 mmHg 35.0-45 HH POC TCO2 ARTERIAL (test code = POCTCO2) 29.8 POC ARTERIAL BLOOD GAS PO2 ( test code = VAPVC5J) 64.8 mmHg 80-100.0 L POC HCO3 ARTERIAL (test code = UAGJFY2E) 28.1 MMOL/L 22.0-26.0 HH POC BASE EXCESS (test code = POCBEA) 1.7 MMOL/L -4.0-4.0 N POC O2 SATURATION (test code = POCO2S) 90.0 % 90-100 N FIO2 (test code = FIO2A) 60 % PaO2/FiO2 (test code = HCH2HID5) 108.00 mm/Hg ABG DELIVERY (test code = MAAME) BiPAP ABG VENT RESP RATE (test cod e = RRA) 25 /MIN ABG TIDAL VOLUME (test code = TVA) 550 ml ABG TEMPERATURE (test code = TEMPA) 98.1 F ABG SITE (test code = SITEA) Art Line BASIC METABOLIC [id number] 21:10:00* Test Item Value Reference Range Interpretation [...] = POCGLU) 200 MG/DL 70-110 H HEMOGLOBIN [id number] 21:10:00* Test Item Value Reference Range Interpretation Comme nts HEMOGLOBIN ABG (test code = HGB/ABG) 8.4 G/DL 11.0-15.0 L [id number] 21:10:00* Test Item Value Reference Range Interpretation Comme nts HEMATOCRIT (test code = HCT/ABG) 25 % 33.0-45.0 L POC LACTIC [id number] 21:10:00* Test Item Value Reference Range Interpretation Comme nts POC LACTIC ACID (test code = POCLAC) 0.8 mmol/l 0.9-1.7 L GLUCOSE [id number] 16:26:00* Test Item Value Reference Range Interpretation Comme nts GLUCOSE BEDSIDE (test code = GLUBED) 178 MG/DL 70-110 H Performed by cer tified gas burner operator at [facility] POC ARTERIAL BLOOD [id number] 16:07:00* Test Item Value Reference Range Interpretation Comme nts POC ARTERIAL BLOOD GAS PH (t est code = POCPHA) 7.282 7.35-7.45 LL POC ARTERIAL BLOOD GAS PCO2 (test code = LIAGIN4B) 56.0 mmHg 35.0-45 HH POC TCO2 ARTERIAL (test code = POCTCO2) 28.3 POC ARTERIAL BLOOD GAS PO2 ( test code = JPWYF1E) 92.5 mmHg 80-100.0 N POC HCO3 ARTERIAL (test code = KGXEAA7G) 26.5 MMOL/L 22.0-26.0 H POC BASE EXCESS (test code = POCBEA) -0.3 MMOL/L -4.0-4.0 N POC O2 SATURATION (test code = POCO2S) 96.0 % 90-100 N FIO2 (test code = FIO2A) 100 % PaO2/FiO2 (test code = RVP0DDK2) 92.50 mm/Hg ABG DELIVERY (test code = MAAME) Vapotherm ABG TEMPERATURE (test code = TEMPA) 98 F ABG SITE (test code = SITEA) Art Line MARTIN'S TEST (test code = ALLENS) N/A BASIC METABOLIC [id number] 16:07:00* Test Item Value Reference Range Interpretation [...] = POCGLU) 175 MG/DL 70-110 H HEMOGLOBIN [id number] 16:07:00* Test Item Value Reference Range Interpretation Comme nts HEMOGLOBIN ABG (test code = HGB/ABG) 8.6 G/DL 11.0-15.0 L [id number] 16:07:00* Test Item Value Reference Range Interpretation Comme nts HEMATOCRIT (test code = HCT/ABG) 25 % 33.0-45.0 L POC LACTIC [id number] 16:07:00* Test Item Value Reference Range Interpretation Comme nts POC LACTIC ACID (test code = POCLAC) 1.0 mmol/l 0.9-1.7 N POC ARTERIAL BLOOD [id number] 15:23:00* Test Item Value Reference Range Interpretation Comme nts POC ARTERIAL BLOOD GAS PH (t est code = POCPHA) 7.310 7.35-7.45 L POC ARTERIAL BLOOD GAS PCO2 (test code = SSCQPM5I) 52.4 mmHg 35.0-45 HH POC TCO2 ARTERIAL (test code = POCTCO2) 27.9 POC ARTERIAL BLOOD GAS PO2 ( test code = WWIDF1G) 87.5 mmHg 80-100.0 N POC HCO3 ARTERIAL (test code = XBVMDJ5M) 26.3 MMOL/L 22.0-26.0 H POC BASE EXCESS (test code = POCBEA) 0.1 MMOL/L -4.0-4.0 N POC O2 SATURATION (test code = POCO2S) 95.4 % 90-100 N FIO2 (test code = FIO2A) 60 % PaO2/FiO2 (test code = JFH4MVW6) 145.83 mm/Hg ABG DELIVERY (test code = MAAME) BiPAP ABG TEMPERATURE (test code = TEMPA) 99 F ABG SITE (test code = SITEA) Art Line MARTIN'S TEST (test code = ALLENS) N/A BASIC METABOLIC [id number] 15:23:00* Test Item Value Reference Range Interpretation [...] = POCGLU) 193 MG/DL 70-110 H HEMOGLOBIN [id number] 15:23:00* Test Item Value Reference Range Interpretation Comme nts HEMOGLOBIN ABG (test code = HGB/ABG) 7.8 G/DL 11.0-15.0 L [id number] 15:23:00* Test Item Value Reference Range Interpretation Comme nts HEMATOCRIT (test code = HCT/ABG) 23 % 33.0-45.0 L POC LACTIC [id number] 15:23:00* Test Item Value Reference Range Interpretation Comme nts POC LACTIC ACID (test code = POCLAC) 0.9 mmol/l 0.9-1.7 N POC ARTERIAL BLOOD [id number] 12:31:00* Test Item Value Reference Range Interpretation Comme nts POC ARTERIAL BLOOD GAS PH (t est code = POCPHA) 7.227 7.35-7.45 LL POC ARTERIAL BLOOD GAS PCO2 (test code = PZSERN3Y) 65.9 mmHg 35.0-45 HH POC TCO2 ARTERIAL (test code = POCTCO2) 29.4 POC ARTERIAL BLOOD GAS PO2 ( test code = RKXOP1R) 47.8 mmHg 80-100.0 LL POC HCO3 ARTERIAL (test code = VCUXYC9C) 27.4 MMOL/L 22.0-26.0 H POC BASE EXCESS (test code = POCBEA) -0.2 MMOL/L -4.0-4.0 N POC O2 SATURATION (test code = POCO2S) 73.8 % 90-100 L FIO2 (test code = FIO2A) 100 % PaO2/FiO2 (test code = CBI5FSX5) 47.80 mm/Hg ABG DELIVERY (test code = MAAME) Vapotherm ABG SITE (test code = SITEA) Art Line MARTIN'S TEST (test code = ALLENS) N/A BASIC METABOLIC [id number] 12:31:00* Test Item Value Reference Range Interpretation [...] = POCGLU) 139 MG/DL 70-110 H HEMOGLOBIN [id number] 12:31:00* Test Item Value Reference Range Interpretation Comme nts HEMOGLOBIN ABG (test code = HGB/ABG) 8.7 G/DL 11.0-15.0 L [id number] 12:31:00* Test Item Value Reference Range Interpretation Comme nts HEMATOCRIT (test code = HCT/ABG) 26 % 33.0-45.0 L POC LACTIC [id number] 12:31:00* Test Item Value Reference Range Interpretation Comme nts POC LACTIC ACID (test code = POCLAC) 0.8 mmol/l 0.9-1.7 L [id number] 11:49:00* Test Item Value Reference Range Interpretation Comme nts PHOSPHOROUS (test code = PHOS) 4.5 MG/DL 2.5-4.9 N CALCIUM [id number] 09:46:00* Test Item Value Reference Range Interpretation Comme nts CALCIUM IONIZED (test code = TYREE) 1.17 MMOL/L 1.09-1.30 N GLUCOSE [id number] 08:28:00* Test Item Value Reference Range Interpretation Comme nts GLUCOSE BEDSIDE (test code = GLUBED) 114 MG/DL 70-110 H Performed by cer tified gas burner operator at [facility] GLUCOSE [id number] 04:20:00* Test Item Value Reference Range Interpretation Comme nts GLUCOSE BEDSIDE (test code = GLUBED) 113 MG/DL 70-110 H Performed by cer tified gas burner operator at [facility] BASIC METABOLIC [id number] 03:00:00* Test Item Value Reference Range Interpretation [...] mg/dL 8.0-10.5 N COMMENTS: POD #1HEPATIC FUNCTION [id number] 03:00:00* Test Item Value Reference Range Interpretation [...] ALKP) 50 IUnit/L 20-125 N COMMENTS: POD #[id number] 03:00:00* Test Item Value Reference Range Interpretation Comme nts MAGNESIUM (test code = MAG) 2.41 mg/dL 1.80-2.40 H COMMENTS: POD #1CBC W/AUTO [id number] 02:32:00* Test Item Value Reference Range Interpretation [...] ode = MDIFF) NO POC ARTERIAL BLOOD [id number] 02:12:00* Test Item Value Reference Range Interpretation Comme nts POC ARTERIAL BLOOD GAS PH (t est code = POCPHA) 7.341 7.35-7.45 L POC ARTERIAL BLOOD GAS PCO2 (test code = EEEGLX6S) 50.1 mmHg 35.0-45 HH POC TCO2 ARTERIAL (test code = POCTCO2) 28.7 POC ARTERIAL BLOOD GAS PO2 ( test code = HJQBI7O) 95.7 mmHg 80-100.0 N POC HCO3 ARTERIAL (test code = PROPNJ9K) 27.1 MMOL/L 22.0-26.0 H POC BASE EXCESS (test code = POCBEA) 1.4 MMOL/L -4.0-4.0 N POC O2 SATURATION (test code = POCO2S) 96.8 % 90-100 N FIO2 (test code = FIO2A) 60 % PaO2/FiO2 (test code = DGM8JYY3) 159.50 mm/Hg ABG DELIVERY (test code = MAAME) BiPAP ABG VENT RESP RATE (test cod e = RRA) 25 /MIN ABG TEMPERATURE (test code = TEMPA) 98.7 F ABG SITE (test code = SITEA) Art Line BASIC METABOLIC [id number] 02:12:00* Test Item Value Reference Range Interpretation [...] = POCGLU) 113 MG/DL 70-110 H HEMOGLOBIN [id number] 02:12:00* Test Item Value Reference Range Interpretation Comme nts HEMOGLOBIN ABG (test code = HGB/ABG) 8.4 G/DL 11.0-15.0 L [id number] 02:12:00* Test Item Value Reference Range Interpretation Comme nts HEMATOCRIT (test code = HCT/ABG) 25 % 33.0-45.0 L POC LACTIC [id number] 02:12:00* Test Item Value Reference Range Interpretation Comme nts POC LACTIC ACID (test code = POCLAC) 0.8 mmol/l 0.9-1.7 L CREATININE [id number] 01:08:00* Test Item Value Reference Range Interpretation Comme nts CREATININE ABG (test code = CREAABG) 1.4 mg/dL 0.6-1.0 H HEMOGLOBIN [id number] 01:08:00* Test Item Value Reference Range Interpretation Comme nts HEMOGLOBIN ABG (test code = HGB/ABG) 5.9 G/DL 11.0-15.0 L [id number] 01:08:00* Test Item Value Reference Range Interpretation Comme nts HEMATOCRIT (test code = HCT/ABG) 17 % 33.0-45.0 L POC VENOUS BLOOD [id number] 01:08:00* Test Item Value Reference Range Interpretation Comme nts POC VENOUS BLOOD GAS PH (ny t code = POCPHV) 7.329 7.33-7.45 L POC VENOUS BLOOD GAS PCO2 (t est code = QSJLLV2N) 39.5 mmHg 43-47 L POC VENOUS BLOOD GAS PO2 (te st code = VERLD2P) 33.3 mmHG 10-50 N POC TCO2 VENOUS (test code = XJBKFQ8V) 22.0 POC HCO3 VENOUS (test code = HCVEDY1B) 20.8 MMOL/L 22-27 L POC BASE EXCESS VENOUS (test code = POCBEV) -5.2 MMOL/L -4.0-4.0 L POC O2 SATURATION VENOUS (te st code = NMNG9FH) 60.0 % 60-80 N VENOUS BLOOD GAS FIO2 (test code = FIO2V) 60 % VENOUS BLOOD GAS DELIVERY (t est code = DELV) BiPAP VENOUS BLOOD GAS TEMP (test code = TEMPV) 98.6 F VENOUS BLOOD GAS SITE (test code = SITEV) Tj Grant [facility] CHEST 1 [id number] 00:00:00 [facility] : 1945 Sex: F FAX: Jeffry Pennington MD [phone] [place]: St: ADM FAX: Abdiaziz Christiansen MD [phone] FAX: Solange Sawyer MD [phone] FAX: Colt Aguillon MD [phone] Name: KIAH GILES [facility] : 1945 Age/S: 76/F [address] [place] [address] Unit #: [id number] Loc: [place] [address] Phys: Solange Mohamud MD Acct: [id number] Dis Date: Status: ADM IN PHONE #: [phone] Exam Date: 12/21/2021 0647 FAX #: [phone] Reason: CONFIRM CHEST TUBE LOCATION EXAMS: CPT CODE: [id number] XR CHEST 1 V 63590 PROCEDURE INFORMATION: Exam: XR Chest Exam date [...] Stable cardiomediastinal silhouette. Bones/joints: Unchanged osseous structures. I MPRESSION: Stable examination. at 0700 Reported and signed by: Shemar Barnes M.D. CC: Jeffry Hsu MD; Abdiaziz Fuchs MD; Solange Mohamud MD; Colt Vail MD Technologist: Shell Min, RT(R); Debbie Fuentes RT(R) Trnscrd Date/Time/By: 12/21/2021 (699) : By: [email or web address] Orig Print D/T: S: 12/21/2021 (699) PAGE 1 Signed Report- US RETROPERITONEAL [id number] 00:00:00 [facility] : 1945 Sex: F Name: KIAH GILES [facility] : 1945 Age/S: 76 / F [address] [place] [address] Blvd Unit #: [id number] Loc: [place] [address] Phys: Jd Alva MD Acct: [id number] Dis Date: Status: ADM IN PHONE #: [phone] Exam Date: 12/21/2021 1800 FAX #: [phone] Reason: MARCELLO EXAMS: CPT CODE: [id number] US RETROPERITONEAL COM [id number] PROCEDURE INFORMATION: Exam: US Retroperitoneal; Complete; Kidneys [...] Left kidney: Left kidney is also partially obscured measuring approximately 12.4 cm in length [...] Vivien Linares RDMS(AB) Trnscb Date/Time: 12/21/2021 (1926) AureliaSG9 Orig Print D/T: S: 12/21/2021 (1927) Probe: PAGE 1 Signed Report GLUCOSE [id number] 22:19:00* Test Item Value Reference Range Interpretation Comme nts GLUCOSE BEDSIDE (test code = GLUBED) 126 MG/DL 70-110 H Performed by cer tified gas burner operator at [facility] BASIC METABOLIC [id number] 21:49:00* Test Item Value Reference Range Interpretation [...] 9.8 mg/dL 8.0-10.5 N POC ARTERIAL BLOOD [id number] 21:23:00* Test Item Value Reference Range Interpretation Comme nts POC ARTERIAL BLOOD GAS PH (t est code = POCPHA) 7.328 7.35-7.45 L POC ARTERIAL BLOOD GAS PCO2 (test code = FYBQDL6Y) 50.9 mmHg 35.0-45 HH POC TCO2 ARTERIAL (test code = POCTCO2) 28.3 POC ARTERIAL BLOOD GAS PO2 ( test code = LGDZJ1I) 89.7 mmHg 80-100.0 N POC HCO3 ARTERIAL (test code = YBAXQE4V) 26.7 MMOL/L 22.0-26.0 H POC BASE EXCESS (test code = POCBEA) 0.8 MMOL/L -4.0-4.0 N POC O2 SATURATION (test code = POCO2S) 96.0 % 90-100 N FIO2 (test code = FIO2A) 60 % PaO2/FiO2 (test code = ESB9NNJ1) 149.50 mm/Hg ABG DELIVERY (test code = MAAME) BiPAP ABG VENT RESP RATE (test cod e = RRA) 25 /MIN ABG TIDAL VOLUME (test code = TVA) 550 ml ABG TEMPERATURE (test code = TEMPA) 98.7 F ABG SITE (test code = SITEA) Art Line BASIC METABOLIC [id number] 21:23:00* Test Item Value Reference Range Interpretation [...] = POCGLU) 128 MG/DL 70-110 H HEMOGLOBIN [id number] 21:23:00* Test Item Value Reference Range Interpretation Comme nts HEMOGLOBIN ABG (test code = HGB/ABG) 7.8 G/DL 11.0-15.0 L [id number] 21:23:00* Test Item Value Reference Range Interpretation Comme nts HEMATOCRIT (test code = HCT/ABG) 23 % 33.0-45.0 L POC LACTIC [id number] 21:23:00* Test Item Value Reference Range Interpretation Comme nts POC LACTIC ACID (test code = POCLAC) 0.6 mmol/l 0.9-1.7 L GLUCOSE [id number] 19:21:00* Test Item Value Reference Range Interpretation Comme nts GLUCOSE BEDSIDE (test code = GLUBED) 136 MG/DL 70-110 H Performed by cer tified gas burner operator at [facility] CBC W/AUTO [id number] 17:35:00* Test Item Value Reference Range Interpretation [...] ode = MDIFF) NO POC ARTERIAL BLOOD [id number] 17:08:00* Test Item Value Reference Range Interpretation Comme nts POC ARTERIAL BLOOD GAS PH (t est code = POCPHA) 7.318 7.35-7.45 L POC ARTERIAL BLOOD GAS PCO2 (test code = ZLCGLC6I) 55.5 mmHg 35.0-45 HH POC TCO2 ARTERIAL (test code = POCTCO2) 30.2 POC ARTERIAL BLOOD GAS PO2 ( test code = XXYAW6S) 95.3 mmHg 80-100.0 N POC HCO3 ARTERIAL (test code = ADHGKE2W) 28.5 MMOL/L 22.0-26.0 HH POC BASE EXCESS (test code = POCBEA) 2.4 MMOL/L -4.0-4.0 N POC O2 SATURATION (test code = POCO2S) 96.5 % 90-100 N FIO2 (test code = FIO2A) 60 % PaO2/FiO2 (test code = ULS1YXW4) 158.83 mm/Hg ABG DELIVERY (test code = [...] (test code = ALLENS) N/A BASIC METABOLIC [id number] 17:08:00* Test Item Value Reference Range Interpretation [...] = POCGLU) 136 MG/DL 70-110 H HEMOGLOBIN [id number] 17:08:00* Test Item Value Reference Range Interpretation Comme nts HEMOGLOBIN ABG (test code = HGB/ABG) 7.5 G/DL 11.0-15.0 L [id number] 17:08:00* Test Item Value Reference Range Interpretation Comme nts HEMATOCRIT (test code = HCT/ABG) 22 % 33.0-45.0 L POC LACTIC [id number] 17:08:00* Test Item Value Reference Range Interpretation Comme nts POC LACTIC ACID (test code = POCLAC) 0.7 mmol/l 0.9-1.7 L GLUCOSE [id number] 16:30:00* Test Item Value Reference Range Interpretation Comme nts GLUCOSE BEDSIDE (test code = GLUBED) 139 MG/DL 70-110 H Performed by cer tified gas burner operator at [facility] POC ARTERIAL BLOOD [id number] 15:19:00* Test Item Value Reference Range Interpretation Comme nts POC ARTERIAL BLOOD GAS PH (t est code = POCPHA) 7.318 7.35-7.45 L POC ARTERIAL BLOOD GAS PCO2 (test code = ZGXEPX1R) 52.0 mmHg 35.0-45 HH POC TCO2 ARTERIAL (test code = POCTCO2) 28.3 POC ARTERIAL BLOOD GAS PO2 ( test code = WUDNX4H) 244.0 mmHg 80-100.0 HH POC HCO3 ARTERIAL (test code = RHXGCY4I) 26.7 MMOL/L 22.0-26.0 H POC BASE EXCESS (test code = POCBEA) 0.6 MMOL/L -4.0-4.0 N POC O2 SATURATION (test code = POCO2S) 99.8 % 90-100 N FIO2 (test code = FIO2A) 100 % PaO2/FiO2 (test code = VSM3TBF0) 244.00 mm/Hg ABG DELIVERY (test code = [...] (test code = ALLENS) N/A BASIC METABOLIC [id number] 15:19:00* Test Item Value Reference Range Interpretation [...] = POCGLU) 144 MG/DL 70-110 H HEMOGLOBIN [id number] 15:19:00* Test Item Value Reference Range Interpretation Comme nts HEMOGLOBIN ABG (test code = HGB/ABG) 9.8 G/DL 11.0-15.0 L [id number] 15:19:00* Test Item Value Reference Range Interpretation Comme nts HEMATOCRIT (test code = HCT/ABG) 29 % 33.0-45.0 L POC LACTIC [id number] 15:19:00* Test Item Value Reference Range Interpretation Comme nts POC LACTIC ACID (test code = POCLAC) 0.5 mmol/l 0.9-1.7 L GLUCOSE [id number] 14:02:00* Test Item Value Reference Range Interpretation Comme nts GLUCOSE BEDSIDE (test code = GLUBED) 167 MG/DL 70-110 H Performed by cer najmaied gas burner operator at [facility] BASIC METABOLIC [id number] 12:24:00* Test Item Value Reference Range Interpretation [...] = CA) 9.2 mg/dL 8.0-10.5 N URINALYSIS [id number] 12:23:00* Test Item Value Reference Range Interpretation [...] = LEUU) 3+ NEGATIVE A UR SODIUM [id number] 12:23:00* Test Item Value Reference Range Interpretation Comme nts UR SODIUM RANDOM (test code = JESUS) < 10 MEQ/L The Reference Ra nge and Method Performance specificationshave not been established for this fluid. The test resultshould be correlated into the clinical context forinterpretation. UR CREATININE [id number] 12:23:00* Test Item Value Reference Range Interpretation Comme nts UR CREATININE RANDOM (test code = CREATU) 116.2 mg/dL The Reference Ra nge and Method Performance specificationshave not been established for this fluid. The test resultshould be correlated into the clinical context forinterpretation. GLUCOSE [id number] 12:13:00* Test Item Value Reference Range Interpretation Comme nts GLUCOSE BEDSIDE (test code = GLUBED) 180 MG/DL 70-110 H Performed by cer tified gas burner operator at [facility] POC ARTERIAL BLOOD [id number] 12:10:00* Test Item Value Reference Range Interpretation Comme nts POC ARTERIAL BLOOD GAS PH (t est code = POCPHA) 7.291 7.35-7.45 LL POC ARTERIAL BLOOD GAS PCO2 (test code = ZZXRAL7O) 59.2 mmHg 35.0-45 HH POC TCO2 ARTERIAL (test code = POCTCO2) 30.7 POC ARTERIAL BLOOD GAS PO2 ( test code = OXEYM9O) 137.8 mmHg 80-100.0 H POC HCO3 ARTERIAL (test code = VSPSPS7W) 28.8 MMOL/L 22.0-26.0 HH POC BASE EXCESS (test code = POCBEA) 2.1 MMOL/L -4.0-4.0 N POC O2 SATURATION (test code = POCO2S) 98.8 % 90-100 N FIO2 (test code = FIO2A) 100 % PaO2/FiO2 (test code = ZPO8DMU4) 137.80 mm/Hg ABG DELIVERY (test code = [...] code = SITEA) Art Line BASIC METABOLIC [id number] 12:10:00* Test Item Value Reference Range Interpretation [...] = POCGLU) 175 MG/DL 70-110 H HEMOGLOBIN [id number] 12:10:00* Test Item Value Reference Range Interpretation Comme nts HEMOGLOBIN ABG (test code = HGB/ABG) 8.3 G/DL 11.0-15.0 L [id number] 12:10:00* Test Item Value Reference Range Interpretation Comme nts HEMATOCRIT (test code = HCT/ABG) 24 % 33.0-45.0 L POC LACTIC [id number] 12:10:00* Test Item Value Reference Range Interpretation Comme nts POC LACTIC ACID (test code = POCLAC) 0.6 mmol/l 0.9-1.7 L POC ARTERIAL BLOOD [id number] 09:48:00* Test Item Value Reference Range Interpretation Comme nts POC ARTERIAL BLOOD GAS PH (t est code = POCPHA) 7.239 7.35-7.45 LL POC ARTERIAL BLOOD GAS PCO2 (test code = WJGNZN1P) 67.0 mmHg 35.0-45 HH POC TCO2 ARTERIAL (test code = POCTCO2) 30.7 POC ARTERIAL BLOOD GAS PO2 ( test code = RTTRY0A) 90.6 mmHg 80-100.0 N POC HCO3 ARTERIAL (test code = PXIZGS8I) 28.6 MMOL/L 22.0-26.0 HH POC BASE EXCESS (test code = POCBEA) 1.2 MMOL/L -4.0-4.0 N POC O2 SATURATION (test code = POCO2S) 94.9 % 90-100 N FIO2 (test code = FIO2A) 100 % PaO2/FiO2 (test code = COB2LBG0) 90.60 mm/Hg ABG DELIVERY (test code = [...] (test code = ALLENS) N/A BASIC METABOLIC [id number] 09:48:00* Test Item Value Reference Range Interpretation [...] = POCGLU) 170 MG/DL 70-110 H HEMOGLOBIN [id number] 09:48:00* Test Item Value Reference Range Interpretation Comme nts HEMOGLOBIN ABG (test code = HGB/ABG) 7.6 G/DL 11.0-15.0 L [id number] 09:48:00* Test Item Value Reference Range Interpretation Comme nts HEMATOCRIT (test code = HCT/ABG) 22 % 33.0-45.0 L POC LACTIC [id number] 09:48:00* Test Item Value Reference Range Interpretation Comme nts POC LACTIC ACID (test code = POCLAC) 0.8 mmol/l 0.9-1.7 L GLUCOSE [id number] 09:10:00* Test Item Value Reference Range Interpretation Comme nts GLUCOSE BEDSIDE (test code = GLUBED) 191 MG/DL 70-110 H Performed by cer tified gas burner operator at [facility] BASIC METABOLIC [id number] 04:02:00* Test Item Value Reference Range Interpretation [...] mg/dL 8.0-10.5 N COMMENTS: POD #1HEPATIC FUNCTION [id number] 04:02:00* Test Item Value Reference Range Interpretation [...] ALKP) 38 IUnit/L 20-125 N COMMENTS: POD #[id number] 04:02:00* Test Item Value Reference Range Interpretation Comme nts MAGNESIUM (test code = MAG) 2.32 mg/dL 1.80-2.40 N COMMENTS: POD #1PROTHROMBIN [id number] 03:45:00* Test Item Value Reference Range Interpretation [...] Infarction (to prevent recurrent infarct). THROMBOPLASTIN TIME [id number] 03:45:00* Test Item Value Reference Range Interpretation Comme nts THROMBOPLASTIN TIME PARTIAL (test code = PTT) 25.0 Seconds 25.0-39.5 N Therapeutic Rang e: 50.4 - 88.3 Seconds Effective 06/28/2018 [id number] 03:45:00* Test Item Value Reference Range Interpretation Comme nts FIBRINOGEN (test code = FIB) 278 MG/DL 160-450 N Excess administr ation of anticoagulants and/or FibrinDegradation Products may affect Fibrinogen value. CBC W/AUTO [id number] 03:36:00* Test Item Value Reference Range Interpretation [...] ode = MDIFF) NO POC ARTERIAL BLOOD [id number] 03:22:00* Test Item Value Reference Range Interpretation Comme nts POC ARTERIAL BLOOD GAS PH (t est code = POCPHA) 7.278 7.35-7.45 LL POC ARTERIAL BLOOD GAS PCO2 (test code = QEJOYZ6K) 66.1 mmHg 35.0-45 HH POC TCO2 ARTERIAL (test code = POCTCO2) 32.8 POC ARTERIAL BLOOD GAS PO2 ( test code = AWSAW5B) 70.0 mmHg 80-100.0 L POC HCO3 ARTERIAL (test code = BAONTM5K) 30.8 MMOL/L 22.0-26.0 HH POC BASE EXCESS (test code = POCBEA) 4.1 MMOL/L -4.0-4.0 H POC O2 SATURATION (test code = POCO2S) 90.4 % 90-100 N FIO2 (test code = FIO2A) 60 % PaO2/FiO2 (test code = LTS0UOX2) 116.66 mm/Hg ABG PEEP (test code = PEEPA) 5 cmH2O ABG TEMPERATURE (test code = TEMPA) 98.9 F ABG SITE (test code = SITEA) Art Line BASIC METABOLIC [id number] 03:22:00* Test Item Value Reference Range Interpretation [...] = POCGLU) 172 MG/DL 70-110 H HEMOGLOBIN [id number] 03:22:00* Test Item Value Reference Range Interpretation Comme nts HEMOGLOBIN ABG (test code = HGB/ABG) 7.2 G/DL 11.0-15.0 L [id number] 03:22:00* Test Item Value Reference Range Interpretation Comme nts HEMATOCRIT (test code = HCT/ABG) 21 % 33.0-45.0 L POC LACTIC [id number] 03:22:00* Test Item Value Reference Range Interpretation Comme nts POC LACTIC ACID (test code = POCLAC) 0.8 mmol/l 0.9-1.7 L - XR CHEST 1 [id number] 00:00:00 [facility] : 1945 Sex: F FAX: Jeffry Pennington MD [phone] [place]: St: ADM FAX: Abdiaziz Christiansen MD [phone] FAX: René Blancas [phone] FAX: Colt Aguillon MD [phone] Name: KIAH GILES [facility] James Hart : 1945 Age/S: 76/F [address] [place] [address] Blvd Unit #: [id number] Loc: [address] [address] Phys: René Villareal MD Acct: [id number] Dis Date: Status: ADM IN PHONE #: [phone] Exam Date: 12/20/2021 06 FAX #: [phone] Reason: Cardiac Surgery Post Op EXAMS: CPT CODE: [id number] XR CHEST 1 V 57459 PROCEDURE INFORMATION: Exam: XR Chest Exam date and time: 12/20/2021 5:40 AM Age: 76 yearsold Clinical indication: Other: Cardiac surgery post op TECHNIQUE: Imaging protocol: Radiologic exam of the chest. Views: 1 view. COMPARISON: CR XR CHEST 1V 12/20/2021 12:08 AM FINDINGS: Tubes, catheters and devices: Right IJ catheter remains in place with Kennard-Juanita terminating in the region of the main [...] Technologist: Xenia Bashir, RT(R); Shell Min RT(R) Trnsaint [email or web address] [place] Date/Time/By: 12/20/2021 (0713) : By: [email or web address] Orig Print D/T: S: 12/20/2021 (07) PAGE 1 Signed Report- XR CHEST 1 [id number] 00:00:00 [facility] : 1945 Sex: F FAX: Jeffry Pennington MD [phone] [place]: St: ADM FAX: Abdiaziz Christiansen MD [phone] FAX: Javi Elizondo MD [phone] FAX: Colt Aguillon MD [phone] Name: KIAH GILES [facility] : 1945 Age/S: 76/F [address] [place] [address] Unit #: [id number] Loc: [address] [place] [id number] Phys: Javi Elizondo MD Acct: [id number] Dis Date: Status: ADM IN PHONE #: [phone] Exam Date: 12/19/2021 001 FAX #: [phone] Reason: resp failurre, post MVR EXAMS: CPT CODE: [id number] XR CHEST 1 V [id number] PROCEDURE INFORMATION: Exam: XR Chest Exam date and time: 12/20/2021 12:08 AM Age: 76 years old Clinical indication: Other: Resp failurre, post mvr TECHNIQUE: Imaging protocol: Radiologic exam of the chest. Views: 1 view. COMPARISON: CR XR CHEST 1V 12/19/2021 1:17 PM FINDINGS: Tubes, catheters and dev ices: Support apparatus is unchanged in position. Lungs: [...] 12/20/2021 (0143) PAGE 1 Signed ReportBASIC METABOLIC [id number] 23:41:00* Test Item Value Reference Range Interpretation [...] code = CA) 9.1 mg/dL 8.0-10.5 N [id number] 23:41:00* Test Item Value Reference Range Interpretation Comme nts PHOSPHOROUS (test code = PHOS) 3.9 MG/DL 2.5-4.9 N [id number] 23:41:00* Test Item Value Reference Range Interpretation Comme nts MAGNESIUM (test code = MAG) 2.45 mg/dL 1.80-2.40 H CALCIUM [id number] 23:41:00* Test Item Value Reference Range Interpretation Comme nts CALCIUM IONIZED (test code = TYREE) 1.16 MMOL/L 1.09-1.30 N CBC W/AUTO [id number] 23:20:00* Test Item Value Reference Range Interpretation [...] ode = MDIFF) NO POC ARTERIAL BLOOD [id number] 22:55:00* Test Item Value Reference Range Interpretation Comme nts POC ARTERIAL BLOOD GAS PH (t est code = POCPHA) 7.301 7.35-7.45 L POC ARTERIAL BLOOD GAS PCO2 (test code = VWTJRK7Q) 61.1 mmHg 35.0-45 HH POC TCO2 ARTERIAL (test code = POCTCO2) 32.0 POC ARTERIAL BLOOD GAS PO2 ( test code = HBDBP3N) 103.3 mmHg 80-100.0 H POC HCO3 ARTERIAL (test code = EFVUFC7B) 30.1 MMOL/L 22.0-26.0 HH POC BASE EXCESS (test code = POCBEA) 3.7 MMOL/L -4.0-4.0 N POC O2 SATURATION (test code = POCO2S) 97.0 % 90-100 N FIO2 (test code = FIO2A) 60 % PaO2/FiO2 (test code = ZUS5VCL8) 172.16 mm/Hg ABG DELIVERY (test code = MAAME) BiPAP ABG PEEP (test code = PEEPA) 5 cmH2O ABG TEMPERATURE (test code = TEMPA) 98.8 F ABG SITE (test code = SITEA) Art Line BASIC METABOLIC [id number] 22:55:00* Test Item Value Reference Range Interpretation [...] = POCGLU) 178 MG/DL 70-110 H HEMOGLOBIN [id number] 22:55:00* Test Item Value Reference Range Interpretation Comme nts HEMOGLOBIN ABG (test code = HGB/ABG) 7.5 G/DL 11.0-15.0 L [id number] 22:55:00* Test Item Value Reference Range Interpretation Comme nts HEMATOCRIT (test code = HCT/ABG) 22 % 33.0-45.0 L POC LACTIC [id number] 22:55:00* Test Item Value Reference Range Interpretation Comme nts POC LACTIC ACID (test code = POCLAC) 0.8 mmol/l 0.9-1.7 L POC ARTERIAL BLOOD [id number] 21:08:00* Test Item Value Reference Range Interpretation Comme nts POC ARTERIAL BLOOD GAS PH (t est code = POCPHA) 7.284 7.35-7.45 LL POC ARTERIAL BLOOD GAS PCO2 (test code = KIDYBO3X) 68.4 mmHg 35.0-45 HH POC TCO2 ARTERIAL (test code = POCTCO2) 34.4 POC ARTERIAL BLOOD GAS PO2 ( test code = IQHIR8W) 82.3 mmHg 80-100.0 N POC HCO3 ARTERIAL (test code = KALZOW7Q) 32.4 MMOL/L 22.0-26.0 HH POC BASE EXCESS (test code = POCBEA) 5.7 MMOL/L -4.0-4.0 H POC O2 SATURATION (test code = POCO2S) 93.8 % 90-100 N FIO2 (test code = FIO2A) 60 % PaO2/FiO2 (test code = YYL3XUD6) 137.16 mm/Hg ABG PEEP (test code = PEEPA) 5 cmH2O ABG TEMPERATURE (test code = TEMPA) 99 F ABG SITE (test code = SITEA) Art Line BASIC METABOLIC [id number] 21:08:00* Test Item Value Reference Range Interpretation [...] = POCGLU) 163 MG/DL 70-110 H HEMOGLOBIN [id number] 21:08:00* Test Item Value Reference Range Interpretation Comme nts HEMOGLOBIN ABG (test code = HGB/ABG) 7.9 G/DL 11.0-15.0 L [id number] 21:08:00* Test Item Value Reference Range Interpretation Comme nts HEMATOCRIT (test code = HCT/ABG) 23 % 33.0-45.0 L POC LACTIC [id number] 21:08:00* Test Item Value Reference Range Interpretation Comme nts POC LACTIC ACID (test code = POCLAC) 0.7 mmol/l 0.9-1.7 L POC ARTERIAL BLOOD [id number] 20:09:00* Test Item Value Reference Range Interpretation Comme nts POC ARTERIAL BLOOD GAS PH (t est code = POCPHA) 7.283 7.35-7.45 LL POC ARTERIAL BLOOD GAS PCO2 (test code = XYAKFK0C) 68.1 mmHg 35.0-45 HH POC TCO2 ARTERIAL (test code = POCTCO2) 34.2 POC ARTERIAL BLOOD GAS PO2 ( test code = FUYCG3V) 78.8 mmHg 80-100.0 L POC HCO3 ARTERIAL (test code = AJBFEM8X) 32.1 MMOL/L 22.0-26.0 HH POC BASE EXCESS (test code = POCBEA) 5.5 MMOL/L -4.0-4.0 H POC O2 SATURATION (test code = POCO2S) 93.0 % 90-100 N FIO2 (test code = FIO2A) 60 % PaO2/FiO2 (test code = NAG3RAS7) 131.33 mm/Hg ABG DELIVERY (test code = MAAME) BiPAP ABG PEEP (test code = PEEPA) 578 cmH2O ABG TEMPERATURE (test code = TEMPA) 99 F ABG SITE (test code = SITEA) Art Line BASIC METABOLIC [id number] 20:09:00* Test Item Value Reference Range Interpretation [...] = POCGLU) 171 MG/DL 70-110 H HEMOGLOBIN [id number] 20:09:00* Test Item Value Reference Range Interpretation Comme nts HEMOGLOBIN ABG (test code = HGB/ABG) 7.8 G/DL 11.0-15.0 L [id number] 20:09:00* Test Item Value Reference Range Interpretation Comme nts HEMATOCRIT (test code = HCT/ABG) 23 % 33.0-45.0 L POC LACTIC [id number] 20:09:00* Test Item Value Reference Range Interpretation Comme nts POC LACTIC ACID (test code = POCLAC) 0.8 mmol/l 0.9-1.7 L POC ARTERIAL BLOOD [id number] 19:05:00* Test Item Value Reference Range Interpretation Comme nts POC ARTERIAL BLOOD GAS PH (t est code = POCPHA) 7.276 7.35-7.45 LL POC ARTERIAL BLOOD GAS PCO2 (test code = AXQOBQ5X) 65.7 mmHg 35.0-45 HH POC TCO2 ARTERIAL (test code = POCTCO2) 32.6 POC ARTERIAL BLOOD GAS PO2 ( test code = VDSYW8P) 203.2 mmHg 80-100.0 HH POC HCO3 ARTERIAL (test code = OLZDAL9S) 30.6 MMOL/L 22.0-26.0 HH POC BASE EXCESS (test code = POCBEA) 3.8 MMOL/L -4.0-4.0 N POC O2 SATURATION (test code = POCO2S) 99.6 % 90-100 N FIO2 (test code = FIO2A) 80 % PaO2/FiO2 (test code = UTY9ZAR2) 254.00 mm/Hg ABG DELIVERY (test code = MAAME) BiPAP ABG VENT MODE (test code = MODEA) CPAP/PS ABG PRESSURE SUPPORT (test c ode = PSABG) 14 cmH2O ABG TEMPERATURE (test code = TEMPA) 98.6 F ABG SITE (test code = SITEA) Art Line MARTIN'S TEST (test code = ALLENS) N/A BASIC METABOLIC [id number] 19:05:00* Test Item Value Reference Range Interpretation [...] = POCGLU) 159 MG/DL 70-110 H HEMOGLOBIN [id number] 19:05:00* Test Item Value Reference Range Interpretation Comme nts HEMOGLOBIN ABG (test code = HGB/ABG) 8.2 G/DL 11.0-15.0 L [id number] 19:05:00* Test Item Value Reference Range Interpretation Comme nts HEMATOCRIT (test code = HCT/ABG) 24 % 33.0-45.0 L POC LACTIC [id number] 19:05:00* Test Item Value Reference Range Interpretation Comme nts POC LACTIC ACID (test code = POCLAC) 0.5 mmol/l 0.9-1.7 L POC ARTERIAL BLOOD [id number] 16:53:00* Test Item Value Reference Range Interpretation Comme nts POC ARTERIAL BLOOD GAS PH (t est code = POCPHA) 7.333 7.35-7.45 L POC ARTERIAL BLOOD GAS PCO2 (test code = XLPLHB0P) 56.4 mmHg 35.0-45 HH POC TCO2 ARTERIAL (test code = POCTCO2) 31.6 POC ARTERIAL BLOOD GAS PO2 ( test code = RAGNL5T) 99.2 mmHg 80-100.0 N POC HCO3 ARTERIAL (test code = SJXWZY5N) 29.9 MMOL/L 22.0-26.0 HH POC BASE EXCESS (test code = POCBEA) 4.0 MMOL/L -4.0-4.0 N POC O2 SATURATION (test code = POCO2S) 97.0 % 90-100 N FIO2 (test code = FIO2A) 50 % PaO2/FiO2 (test code = QWP6KRP0) 198.40 mm/Hg ABG VENT MODE (test code = MODEA) AC ABG PEEP (test code = PEEPA) 5 cmH2O ABG PRESSURE SUPPORT (test c ode = PSABG) 10 cmH2O ABG SITE (test code = SITEA) Art Line BASIC METABOLIC [id number] 16:53:00* Test Item Value Reference Range Interpretation [...] = POCGLU) 125 MG/DL 70-110 H HEMOGLOBIN [id number] 16:53:00* Test Item Value Reference Range Interpretation Comme nts HEMOGLOBIN ABG (test code = HGB/ABG) 8.3 G/DL 11.0-15.0 L [id number] 16:53:00* Test Item Value Reference Range Interpretation Comme nts HEMATOCRIT (test code = HCT/ABG) 24 % 33.0-45.0 L POC LACTIC [id number] 16:53:00* Test Item Value Reference Range Interpretation Comme nts POC LACTIC ACID (test code = POCLAC) 0.9 mmol/l 0.9-1.7 N LACTIC ACID [id number] 15:09:00* Test Item Value Reference Range Interpretation Comme [facility] LACTIC ACID REPEAT (test cod e = LACTR) 1.8 mmol/l 0.4-1.9 N POC ARTERIAL BLOOD [id number] 14:56:00* Test Item Value Reference Range Interpretation Comme nts POC ARTERIAL BLOOD GAS PH (t est code = POCPHA) 7.482 7.35-7.45 H POC ARTERIAL BLOOD GAS PCO2 (test code = BAWMQX5Y) 37.2 mmHg 35.0-45 N POC TCO2 ARTERIAL (test code = POCTCO2) 29.1 POC ARTERIAL BLOOD GAS PO2 ( test code = KTRUD3X) 62.0 mmHg 80-100.0 L POC HCO3 ARTERIAL (test code = ARNSVP0P) 27.9 MMOL/L 22.0-26.0 H POC BASE EXCESS (test code = POCBEA) 4.3 MMOL/L -4.0-4.0 H POC O2 SATURATION (test code = POCO2S) 93.5 % 90-100 N FIO2 (test code = FIO2A) 40 % PaO2/FiO2 (test code = YFM7PLE7) 155.00 mm/Hg ABG DELIVERY (test code = [...] (test code = ALLENS) N/A BASIC METABOLIC [id number] 14:56:00* Test Item Value Reference Range Interpretation [...] = POCGLU) 126 MG/DL 70-110 H HEMOGLOBIN [id number] 14:56:00* Test Item Value Reference Range Interpretation Comme nts HEMOGLOBIN ABG (test code = HGB/ABG) 8.9 G/DL 11.0-15.0 L [id number] 14:56:00* Test Item Value Reference Range Interpretation Comme nts HEMATOCRIT (test code = HCT/ABG) 26 % 33.0-45.0 L POC LACTIC [id number] 14:56:00* Test Item Value Reference Range Interpretation Comme nts POC LACTIC ACID (test code = POCLAC) 1.6 mmol/l 0.9-1.7 N CBC W/AUTO [id number] 13:38:00* Test Item Value Reference Range Interpretation [...] c ode = MDIFF) NO COMMENTS: [facility] [id number] 13:38:00* Test Item Value Reference Range Interpretation Comme nts ANISOCYTOSIS (test code = ANISO) 1+ POLYCHROMASIA (test code = POLC) 1+ MACROCYTOSIS (test code = MACR) 1+ COMMENTS: On arrivalPLT [id number] 13:38:00* Test Item Value Reference Range Interpretation Comme nts PLATELET ESTIMATE (test code = PLTEST) 76-95 THOUSAND ADEQUATE COMMENTS: On arrivalBASIC METABOLIC [id number] 13:38:00* Test Item Value Reference Range Interpretation [...] mg/dL 8.0-10.5 N COMMENTS: On arrivalHEPATIC FUNCTION [id number] 13:38:00* Test Item Value Reference Range Interpretation [...] ALKP) 47 IUnit/L 20-125 N COMMENTS: On [id number] 13:38:00* Test Item Value Reference Range Interpretation Comme nts MAGNESIUM (test code = MAG) 2.45 mg/dL 1.80-2.40 H COMMENTS: On arrivalBASIC METABOLIC [id number] 13:30:00* Test Item Value Reference Range Interpretation [...] = POCGLU) 141 MG/DL 70-110 H HEMOGLOBIN [id number] 13:30:00* Test Item Value Reference Range Interpretation Comme nts HEMOGLOBIN ABG (test code = HGB/ABG) 8.9 G/DL 11.0-15.0 L [id number] 13:30:00* Test Item Value Reference Range Interpretation Comme nts HEMATOCRIT (test code = HCT/ABG) 26 % 33.0-45.0 L POC LACTIC [id number] 13:30:00* Test Item Value Reference Range Interpretation Comme nts POC LACTIC ACID (test code = POCLAC) 1.9 mmol/l 0.9-1.7 H POC VENOUS BLOOD [id number] 13:30:00* Test Item Value Reference Range Interpretation Comme nts POC VENOUS BLOOD GAS PH (ny t code = POCPHV) 7.334 7.33-7.45 N POC VENOUS BLOOD GAS PCO2 (t est code = XBKTZU9S) 57.2 mmHg 43-47 HH POC VENOUS BLOOD GAS PO2 (te st code = QMGYV6V) 35.1 mmHG 10-50 N POC TCO2 VENOUS (test code = ILTSRU0H) 32.2 POC HCO3 VENOUS (test code = DPCSRH1W) 30.5 MMOL/L 22-27 H POC BASE EXCESS VENOUS (test code = POCBEV) 4.6 MMOL/L -4.0-4.0 H POC O2 SATURATION VENOUS (te st code = VRTH9FA) 61.8 % 60-80 N VENOUS BLOOD GAS FIO2 (test code = FIO2V) 60 % VBG TIDAL VOLUME (test code = TVV) 450 ml VENOUS BLOOD GAS PEEP (test code = PEEPV) 5 cmH2O VENOUS BLOOD GAS SITE (test code = SITEV) [facility] LACTIC [id number] 13:29:00* Test Item Value Reference Range Interpretation Comme [facility] LACTIC ACID (test code = LACT) 2.2 mmol/L 0.4-1.9 H PROTHROMBIN [id number] 13:22:00* Test Item Value Reference Range Interpretation Comme [facility] PROTHROMBIN TIME PATIENT (test code = PTP) [...] prevent recurrent infarct). COMMENTS: On arrivalTHROMBOPLASTIN TIME [id number] 13:22:00* Test Item Value Reference Range Interpretation Comme [facility] THROMBOPLASTIN TIME PARTIAL (test code = PTT) 24.4 Seconds 25.0-39.5 L Therapeutic Rang e: 50.4 - 88.3 Seconds Effective 06/28/2018 COMMENTS: On arrivalPOC LACTIC [id number] 13:02:00* Test Item Value Reference Range Interpretation Comme nts POC LACTIC ACID (test code = POCLAC) 2.0 mmol/l 0.9-1.7 H POC ARTERIAL BLOOD [id number] 13:02:00* Test Item Value Reference Range Interpretation Comme nts POC ARTERIAL BLOOD GAS PH (t est code = POCPHA) 7.383 7.35-7.45 N POC ARTERIAL BLOOD GAS PCO2 (test code = UZSOIR1A) 51.0 mmHg 35.0-45 HH POC TCO2 ARTERIAL (test code = POCTCO2) 32.0 POC ARTERIAL BLOOD GAS PO2 ( test code = SGHTG0W) 72.1 mmHg 80-100.0 L POC HCO3 ARTERIAL (test code = JTFPXR0S) 30.4 MMOL/L 22.0-26.0 HH POC BASE EXCESS (test code = POCBEA) 5.3 MMOL/L -4.0-4.0 H POC O2 SATURATION (test code = POCO2S) 94.0 % 90-100 N FIO2 (test code = FIO2A) 50 % PaO2/FiO2 (test code = QKH7XZE3) 144.20 mm/Hg ABG DELIVERY (test code = [...] (test code = ALLENS) N/A BASIC METABOLIC [id number] 13:02:00* Test Item Value Reference Range Interpretation [...] = POCGLU) 144 MG/DL 70-110 H HEMOGLOBIN [id number] 13:02:00* Test Item Value Reference Range Interpretation Comme nts HEMOGLOBIN ABG (test code = HGB/ABG) 9.2 G/DL 11.0-15.0 L [id number] 13:02:00* Test Item Value Reference Range Interpretation Comme nts HEMATOCRIT (test code = HCT/ABG) 27 % 33.0-45.0 L [id number] 11:33:00* Test Item Value Reference Range Interpretation Comme nts ACT-ISTAT (test code = ACTI) 115 SEC 74-137 N Performed by cer tified gas burner operator at [facility] POC ARTERIAL BLOOD [id number] 11:25:00* Test Item Value Reference Range Interpretation Comme nts POC ARTERIAL BLOOD GAS PH (t est code = POCPHA) 7.472 7.35-7.45 H POC ARTERIAL BLOOD GAS PCO2 (test code = ZOPLLU6V) 35.8 mmHg 35.0-45 N POC TCO2 ARTERIAL (test code = POCTCO2) 27.2 POC ARTERIAL BLOOD GAS PO2 ( test code = SOGFE5T) 303.1 mmHg 80-100.0 HH POC HCO3 ARTERIAL (test code = VEETVM0V) 26.2 MMOL/L 22.0-26.0 H POC BASE EXCESS (test code = POCBEA) 2.5 MMOL/L -4.0-4.0 N POC O2 SATURATION (test code = POCO2S) 99.9 % 90-100 N BASIC METABOLIC [id number] 11:25:00* Test Item Value Reference Range Interpretation [...] = POCGLU) 168 MG/DL 70-110 H HEMOGLOBIN [id number] 11:25:00* Test Item Value Reference Range Interpretation Comme nts HEMOGLOBIN ABG (test code = HGB/ABG) 9.0 G/DL 11.0-15.0 L [id number] 11:25:00* Test Item Value Reference Range Interpretation Comme nts HEMATOCRIT (test code = HCT/ABG) 26 % 33.0-45.0 L POC LACTIC [id number] 11:25:00* Test Item Value Reference Range Interpretation Comme nts POC LACTIC ACID (test code = POCLAC) 2.3 mmol/l 0.9-1.7 H [id number] 11:05:00* Test Item Value Reference Range Interpretation Comme nts ACT-ISTAT (test code = ACTI) 491 SEC 74-137 H Performed by cer tified gas burner operator at [facility] POC ARTERIAL BLOOD [id number] 10:54:00* Test Item Value Reference Range Interpretation Comme nts POC ARTERIAL BLOOD GAS PH (t est code = POCPHA) 7.467 7.35-7.45 H POC ARTERIAL BLOOD GAS PCO2 (test code = WRCMZO2W) 42.3 mmHg 35.0-45 N POC TCO2 ARTERIAL (test code = POCTCO2) 31.9 POC ARTERIAL BLOOD GAS PO2 ( test code = DNGTV3B) 226.6 mmHg 80-100.0 HH POC HCO3 ARTERIAL (test code = MBZILZ2D) 30.6 MMOL/L 22.0-26.0 HH POC BASE EXCESS (test code = POCBEA) 6.2 MMOL/L -4.0-4.0 H POC O2 SATURATION (test code = POCO2S) 99.8 % 90-100 N BASIC METABOLIC [id number] 10:54:00* Test Item Value Reference Range Interpretation [...] = POCGLU) 180 MG/DL 70-110 H HEMOGLOBIN [id number] 10:54:00* Test Item Value Reference Range Interpretation Comme nts HEMOGLOBIN ABG (test code = HGB/ABG) 8.5 G/DL 11.0-15.0 L [id number] 10:54:00* Test Item Value Reference Range Interpretation Comme nts HEMATOCRIT (test code = HCT/ABG) 25 % 33.0-45.0 L POC LACTIC [id number] 10:54:00* Test Item Value Reference Range Interpretation Comme nts POC LACTIC ACID (test code = POCLAC) 1.4 mmol/l 0.9-1.7 N [id number] 10:37:00* Test Item Value Reference Range Interpretation Comme nts ACT-ISTAT (test code = ACTI) 515 SEC 74-137 H Performed by cer tified gas burner operator at [facility] POC ARTERIAL BLOOD [id number] 10:23:00* Test Item Value Reference Range Interpretation Comme nts POC ARTERIAL BLOOD GAS PH (t est code = POCPHA) 7.550 7.35-7.45 HH POC ARTERIAL BLOOD GAS PCO2 (test code = HREFYV4I) 35.2 mmHg 35.0-45 N POC TCO2 ARTERIAL (test code = POCTCO2) 31.8 POC ARTERIAL BLOOD GAS PO2 ( test code = TQLJE4O) 278.5 mmHg 80-100.0 HH POC HCO3 ARTERIAL (test code = KILSHE3J) 30.8 MMOL/L 22.0-26.0 HH POC BASE EXCESS (test code = POCBEA) 7.9 MMOL/L -4.0-4.0 H POC O2 SATURATION (test code = POCO2S) 99.9 % 90-100 N BASIC METABOLIC [id number] 10:23:00* Test Item Value Reference Range Interpretation [...] = POCGLU) 197 MG/DL 70-110 H HEMOGLOBIN [id number] 10:23:00* Test Item Value Reference Range Interpretation Comme nts HEMOGLOBIN ABG (test code = HGB/ABG) 9.1 G/DL 11.0-15.0 L [id number] 10:23:00* Test Item Value Reference Range Interpretation Comme nts HEMATOCRIT (test code = HCT/ABG) 27 % 33.0-45.0 L POC LACTIC [id number] 10:23:00* Test Item Value Reference Range Interpretation Comme nts POC LACTIC ACID (test code = POCLAC) 1.1 mmol/l 0.9-1.7 N [id number] 09:56:00* Test Item Value Reference Range Interpretation Comme nts ACT-ISTAT (test code = ACTI) 642 SEC 74-137 H Performed by cer tified gas burner operator at [facility] POC ARTERIAL BLOOD [id number] 09:52:00* Test Item Value Reference Range Interpretation Comme nts POC ARTERIAL BLOOD GAS PH (t est code = POCPHA) 7.532 7.35-7.45 HH POC ARTERIAL BLOOD GAS PCO2 (test code = ZOCCCA0N) 36.8 mmHg 35.0-45 N POC TCO2 ARTERIAL (test code = POCTCO2) 32.0 POC ARTERIAL BLOOD GAS PO2 ( test code = JSYKH2C) 427.8 mmHg 80-100.0 HH POC HCO3 ARTERIAL (test code = CGLHUC0X) 30.8 MMOL/L 22.0-26.0 HH POC BASE EXCESS (test code = POCBEA) 7.7 MMOL/L -4.0-4.0 H POC O2 SATURATION (test code = POCO2S) 100.0 % 90-100 N BASIC METABOLIC [id number] 09:52:00* Test Item Value Reference Range Interpretation [...] = POCGLU) 193 MG/DL 70-110 H HEMOGLOBIN [id number] 09:52:00* Test Item Value Reference Range Interpretation Comme nts HEMOGLOBIN ABG (test code = HGB/ABG) 9.2 G/DL 11.0-15.0 L [id number] 09:52:00* Test Item Value Reference Range Interpretation Comme nts HEMATOCRIT (test code = HCT/ABG) 27 % 33.0-45.0 L POC LACTIC [id number] 09:52:00* Test Item Value Reference Range Interpretation Comme nts POC LACTIC ACID (test code = POCLAC) 1.3 mmol/l 0.9-1.7 N [id number] 09:37:00* Test Item Value Reference Range Interpretation Comme nts ACT-ISTAT (test code = ACTI) 746 SEC 74-137 H Performed by cer arlene gas burner operator at [facility] POC ARTERIAL BLOOD [id number] 09:18:00* Test Item Value Reference Range Interpretation Comme nts POC ARTERIAL BLOOD GAS PH (t est code = POCPHA) 7.473 7.35-7.45 H POC ARTERIAL BLOOD GAS PCO2 (test code = ZTOTAA7G) 41.7 mmHg 35.0-45 N POC TCO2 ARTERIAL (test code = POCTCO2) 31.9 POC ARTERIAL BLOOD GAS PO2 ( test code = VJTNU5P) 447.6 mmHg 80-100.0 HH POC HCO3 ARTERIAL (test code = ILRWNS6N) 30.6 MMOL/L 22.0-26.0 HH POC BASE EXCESS (test code = POCBEA) 6.4 MMOL/L -4.0-4.0 H POC O2 SATURATION (test code = POCO2S) 100.0 % 90-100 N BASIC METABOLIC [id number] 09:18:00* Test Item Value Reference Range Interpretation [...] = POCGLU) 208 MG/DL 70-110 H HEMOGLOBIN [id number] 09:18:00* Test Item Value Reference Range Interpretation Comme nts HEMOGLOBIN ABG (test code = HGB/ABG) 9.2 G/DL 11.0-15.0 L [id number] 09:18:00* Test Item Value Reference Range Interpretation Comme nts HEMATOCRIT (test code = HCT/ABG) 27 % 33.0-45.0 L POC LACTIC [id number] 09:18:00* Test Item Value Reference Range Interpretation Comme nts POC LACTIC ACID (test code = POCLAC) 1.2 mmol/l 0.9-1.7 N [id number] 08:57:00* Test Item Value Reference Range Interpretation Comme nts ACT-ISTAT (test code = ACTI) 740 SEC 74-137 H Performed by cer tified gas burner operator at [facility] POC ARTERIAL BLOOD [id number] 08:47:00* Test Item Value Reference Range Interpretation Comme nts POC ARTERIAL BLOOD GAS PH (t est code = POCPHA) 7.421 7.35-7.45 N POC ARTERIAL BLOOD GAS PCO2 (test code = ZBEXUT8Y) 42.1 mmHg 35.0-45 N POC TCO2 ARTERIAL (test code = POCTCO2) 28.7 POC ARTERIAL BLOOD GAS PO2 ( test code = LOKQX1S) 349.7 mmHg 80-100.0 HH POC HCO3 ARTERIAL (test code = EZNPLR6R) 27.4 MMOL/L 22.0-26.0 H POC BASE EXCESS (test code = POCBEA) 2.6 MMOL/L -4.0-4.0 N POC O2 SATURATION (test code = POCO2S) 99.9 % 90-100 N BASIC METABOLIC [id number] 08:47:00* Test Item Value Reference Range Interpretation [...] = POCGLU) 244 MG/DL 70-110 H HEMOGLOBIN [id number] 08:47:00* Test Item Value Reference Range Interpretation Comme nts HEMOGLOBIN ABG (test code = HGB/ABG) 10.3 G/DL 11.0-15.0 L [id number] 08:47:00* Test Item Value Reference Range Interpretation Comme nts HEMATOCRIT (test code = HCT/ABG) 30 % 33.0-45.0 L POC LACTIC [id number] 08:47:00* Test Item Value Reference Range Interpretation Comme nts POC LACTIC ACID (test code = POCLAC) 1.1 mmol/l 0.9-1.7 N CBC W/AUTO [id number] 08:23:00* Test Item Value Reference Range Interpretation [...] REQUIRED (test c ode = MDIFF) NO [id number] 07:46:00* Test Item Value Reference Range Interpretation Comme nts ACT-ISTAT (test code = ACTI) 138 SEC 74-137 H Performed by cer tified gas burner operator at [facility] POC ARTERIAL BLOOD [id number] 07:37:00* Test Item Value Reference Range Interpretation Comme nts POC ARTERIAL BLOOD GAS PH (t est code = POCPHA) 7.439 7.35-7.45 N POC ARTERIAL BLOOD GAS PCO2 (test code = WZLBQU8J) 38.6 mmHg 35.0-45 N POC TCO2 ARTERIAL (test code = POCTCO2) 27.3 POC ARTERIAL BLOOD GAS PO2 ( test code = ERFCC2U) 482.6 mmHg 80-100.0 HH POC HCO3 ARTERIAL (test code = HZPCLF6B) 26.2 MMOL/L 22.0-26.0 H POC BASE EXCESS (test code = POCBEA) 1.9 MMOL/L -4.0-4.0 N POC O2 SATURATION (test code = POCO2S) 100.0 % 90-100 N BASIC METABOLIC [id number] 07:37:00* Test Item Value Reference Range Interpretation [...] = POCGLU) 257 MG/DL 70-110 H HEMOGLOBIN [id number] 07:37:00* Test Item Value Reference Range Interpretation Comme nts HEMOGLOBIN ABG (test code = HGB/ABG) 9.5 G/DL 11.0-15.0 L [id number] 07:37:00* Test Item Value Reference Range Interpretation Comme nts HEMATOCRIT (test code = HCT/ABG) 28 % 33.0-45.0 L POC LACTIC [id number] 07:37:00* Test Item Value Reference Range Interpretation Comme nts POC LACTIC ACID (test code = POCLAC) 2.0 mmol/l 0.9-1.7 H COMPREHENSIVE METABOLIC [id number] 07:20:00* Test Item Value Reference Range Interpretation [...] ALKP) 71 IUnit/L 20-125 N THROMBOPLASTIN TIME [id number] 05:41:00* Test Item Value Reference Range Interpretation Comme nts THROMBOPLASTIN TIME PARTIAL (test code = PTT) 31.1 Seconds 25.0-39.5 N Therapeutic Rang e: 50.4 - 88.3 Seconds Effective 06/28/2018 PROTHROMBIN [id number] 05:28:00* Test Item Value Reference Range Interpretation [...] prevent recurrent infarct). - XR CHEST 1 [id number] 00:00:00 [facility] : 1945 Sex: F FAX: Jeffry Pennington MD [phone] [place]: St: ADM FAX: Abdiaziz Christiansen MD [phone] FAX: René Blancas [phone] FAX: Colt Aguillon MD [phone] Name: KIAH GILES [facility] : 1945 Age/S: 76/F [address] [place] [address] Blvd Unit #: [id number] Loc: [address] [place] [address] Phys: René Villareal MD Acct: [id number] Dis Date: Status: ADM IN PHONE #: [phone] Exam Date: 12/19/2021 1336 FAX #: [phone] Reason: SURGICAL COUNT EXAMS: CPT CODE: [id number] XR CHEST 1 V 09986 PROCEDURE INFORMATION: Exam: XR Chest Exam date and time: 12/19/2021 12:09 PM Age: 76 years old Clinical indication: Screening exam; Other screening; Additional info: Surgical count TECHNIQUE: Imaging protocol: Radiologic exam of the chest. Views: 1 view. COMPARISON: CT CHEST W/O CONTRAST 12/17/2021 5:33 PM FINDINGS: Tubes, catheters and devices: The endotracheal tube tip terminates approximately6 cm above the chong. The right IJ central venous catheter tip projects at the level of the mid SVC. Stable left multi lead pacemaker. The right IJ Kennard-Juanita catheter tip projects at the level of [...] no visible procedural complication. 4. Bilateral platelike at electasis and central/bibasilar pulmonary opacities, probably representing atelectasis and or secretions. Findings were conveyed to the Surgical team at 12:30 p.m. PAGE 1 Signed Report (CONTINUED) FAX: Jeffry Pennington MD [phone] [place]: St: ADM FAX: Abdiaziz Christiansen MD [phone] FAX: René Ortiz [phone] FAX: Colt Aguillon MD [phone] Name: KIAH GILES [facility] : 1945 Age/S: 76/F [address] [place] [address] Unit #: [id number] Loc: [address] [address] Phys: René Villareal MD Acct: [id number] Dis Date: Status: ADM IN PHONE #: [phone] Exam Date: 12/19/2021 1336 FAX #: [phone] Reason: SURGICAL COUNT EXAMS: CPT CODE: [id number] XR CHEST 1 V 10255 (Continued) at 1402 Reported and signed by: Jonathan Calles M.D. CC: Jeffry Hsu MD; Abdiaziz Fuchs MD; René Villareal MD; Colt Vail MD Technologist: RT Osman(Marla) Trnscrd Date/Time/By: 12/19/2021 (1402) : By: [email or web address] Orig Print D/T: S: 12/19/2021 (1401) PAGE 2 Signed Report- XR CHEST 1 [id number] 00:00:00 [facility] GILES : 1945 Sex: F FAX: Jeffry Pennington MD [phone] [place]: St: ADM FAX: Abdiaziz Christiansen MD [phone] FAX: René Blancas [phone] FAX: Colt Aguillon MD [phone] Name: KIAH GILES [facility] : 1945 Age/S: 76/F [address] [place] [address] Unit #: [id number] Loc: G.2[address] [place] [address] Phys: René Villareal MD Acct: [id number] Dis Date: Status: ADM IN PHONE #: [phone] Exam Date: 12/19/2021 1315 FAX #: [phone] Reason: Cardiac Surgery Post Op EXAMS: CPT CODE: [id number] XR CHEST 1 V 05981 PROCEDURE INFORMATION: Exam: XR Chest Exam date [...] of the sternoclavicular joints. There is a Kennard-Juanita catheter inplace. Lungs: There are patchy opacities throughout the [...] Villareal MD; Colt Vail MD Technologist: RT Kimberly(Marla) Trnscrd Date/Time/By: 12/19/2021 (151) : By: [email or web address] Orig Print D/T: S: 12/19/2021 (1515) PAGE 1 Signed ReportGLUCOSE [id number] 21:03:00* Test Item Value Reference Range Interpretation Comme nts GLUCOSE BEDSIDE (test code = GLUBED) 260 MG/DL 70-110 H Performed by cer tified gas burner operator at [facility] GLUCOSE [id number] 16:49:00* Test Item Value Reference Range Interpretation Comme nts GLUCOSE BEDSIDE (test code = GLUBED) 226 MG/DL 70-110 H Performed by cer tified gas burner operator at [facility] GLUCOSE [id number] 13:03:00* Test Item Value Reference Range Interpretation Comme nts GLUCOSE BEDSIDE (test code = GLUBED) 148 MG/DL 70-110 H Performed by cer tified gas burner operator at [facility] GLUCOSE [id number] 11:18:00* Test Item Value Reference Range Interpretation Comme nts GLUCOSE BEDSIDE (test code = GLUBED) 153 MG/DL 70-110 H Performed by cer arlene gas burner operator at [facility] B-TYPE NATRIURETIC [id number] 05:59:00* Test Item Value Reference Range Interpretation Comme nts B-TYPE NATRIURETIC PEPTIDE ( test code = BNP) 90.0 PG/ML 0-100 N HGBA1C%2021-12-18 05:39:00* Test Item Value Reference Range Interpretation Comme nts HGBA1C% (test code = HGBA1C%) 6.2 %A1C 4.8-6.0 H CBC W/AUTO [id number] 05:26:00* Test Item Value Reference Range Interpretation [...] (test c ode = MDIFF) NO PROTHROMBIN [id number] 04:51:00* Test Item Value Reference Range Interpretation [...] Infarction (to prevent recurrent infarct). THROMBOPLASTIN TIME [id number] 04:51:00* Test Item Value Reference Range Interpretation Comme nts THROMBOPLASTIN TIME PARTIAL (test code = PTT) 31.0 Seconds 25.0-39.5 N Therapeutic Rang e: 50.4 - 88.3 Seconds Effective 06/28/2018 COMPREHENSIVE METABOLIC [id number] 04:47:00* Test Item Value Reference Range Interpretation [...] = LDL) 66.3 mg/dL 0-100 N <100 CUQXBYV53 0-129 NEAR OPTIMAL/ABOVE [id number] [id number] HIGH>ZX=571 VERY HIGH*Guidelines provided by the National Cholesterol EducationProgram Adult Treatment Panel III URINALYSIS [id number] 03:32:00* Test Item Value Reference Range Interpretation [...] /LPF NONE SEEN COVID 19 Asymptomatic IH [id number] 20:44:00* Test Item Value Reference Range Interpretation [...] perform moderate, high or waivedcomplexity tests. GLUCOSE [id number] 19:26:00* Test Item Value Reference Range Interpretation Comme nts GLUCOSE BEDSIDE (test code = GLUBED) 213 MG/DL 70-110 H Performed by [facility] tified gas burner operator at [facility] GLUCOSE [id number] 13:37:00* Test Item Value Reference Range Interpretation Comme nts GLUCOSE BEDSIDE (test code = GLUBED) 140 MG/DL 70-110 H Performed by [facility] at [facility] [id number] 11:10:00* Test Item Value Reference Range Interpretation Comme nts ACT-ISTAT (test code = ACTI) 265 SEC 74-137 H Performed by [facility] tified gas burner operator at [facility] [id number] 10:56:00* Test Item Value Reference Range Interpretation Comme nts ACT-ISTAT (test code = ACTI) 335 SEC 74-137 H Performed by [facility] tified gas burner operator at [facility] GLUCOSE [id number] 08:08:00* Test Item Value Reference Range Interpretation Comme nts GLUCOSE BEDSIDE (test code = GLUBED) 164 MG/DL 70-110 H Performed by [facility] operator at [facility] - CT CHEST W/O [id number] 00:00:00 [facility] : 1945 Sex: F Name: KIAH GILES [facility] [place] : 1945 Age/S: 76 / F [address] [place] [address] Unit #: [id number] Loc: [place] [address] Phys: Navarro-AlessandroKena VESSEL MASTER Acct: [id number] Dis Date: Status: ADM IN PHONE #: [phone] Exam Date: 12/17/2021 173 FAX #: [phone] Reason: Cardiac Surgery Pre Op Report Has Been Amended EXAMS: CPT CODE: [id number] CT CHEST W/O CONTRAST 08698 Addendum - 12/17/2021 SIGNED 12/17/2021 ADDENDUM: [id number] CT/CTCHESTWO There is a 4 mm noncalcified right middle lobe nodule 65 of series 2. For patients at low risk (minimal or absent history of smoking andof other known risk factors), no routine follow-up is indicated. For patients at high risk (historyof smoking or of other known risk factors), consider optional CT Chest at 12 months. (Reference: Shefali) References: Mariposahoflor H, et al. Guidelines for Management of Incidental Pulmonary Nodules Detected on CT Images: From the Fleischner Society 2017. Radiology. 2017;284(1):228-243. at 1849 Reported and signed by: Jose Rankin D.O. Report PROCEDURE INFORMATION: Exam: CT Chest Without Contrast; Diagnostic Exam date and time: 12/17/2021 5:33 PM Age: 76 years old Clinical indication: Other: Cardiac surgery pre op TECHNIQUE:Imaging protocol: Diagnostic computed tomography of the chest without contrast. Radiation optimization: All CT scans at this facility use at least one of these dose optimization techniques: automatedexposure control; mA and/or kV adjustment per patient [...] 1 Signed Report (CONTINUED) Name: [facility] 1945 Age/S: 76 / F [address] [place] [address] Blvd Unit #: [id number] Loc: [place] [address] Phys: Kena Macedo NP Acct: [id number] Dis Date: Status: ADM IN PHONE #: [phone] Exam Date: 12/17/2021 1734 FAX #: [phone] Reason: Cardiac Surgery Pre Op Report Has Been Amended EXAMS: CPT CODE: [id number] CT CHEST W/O CONTRAST 08248 (Continued) Lungs: There is atelectasis within the [...] artery atherosclerotic vascular calcification. There is cardiomegaly. T here is no pericardial effusion. 2. There is mild interstitial pulmonary edema. There is pulmonary atelectasis but no evidence of pneumonia. at 1848 Reported and signed by: Jose Rankin D.O. 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 Normalis no stenosis. Mild is less than 50% stenosis. Moderate is 50-69% stenosis. Severe is greater than69% stenosis to near occlusion. Near occlusion is a markedly narrowed lumen. Total occlusion is no detectable patent lumen. at 1902 Reported and signed by: Margarito Delgado M.D. PAGE 1 Signed Report (CONTINUED) Name: KIAH GILES [facility] : 1945 Age/S: 76 / F [address] [place] [address] Blvd Unit #: [id number] Loc: [place] [address] Phys: Kena Macedo NP Acct: [id number] Dis Date: Status: ADM IN PHONE #: [phone] Exam Date: 12/17/2021 184 FAX #: [phone] Reason: Cardiac Surgery Pre Op EXAMS: CPT CO DE: [id number] DUP EXTRACRANIAL RAJAN 84000 (Continued) CC: Jeffry Hsu MD; Abdiaziz Fuchs MD; Kena Macedo NP; Colt Vail MD Technologist: Anu Denis Trnndb Date/Time: 12/17/2021 (1901) [id number] Orig Print D/T: S: 12/17/2021 (1902) Probe: PAGE 2 Signed Report- DUP VEIN [id number] 00:00:00[facility] : 1945 Sex: F Name: KIAH GILES [facility] [place] : 1945 Age/S: 76 / F [address] [place] [address] Blvd Unit #: [id number] Loc: [place] [address] Phys: Kena Macedo VESSEL MASTER Acct: [id number] Dis Date: Status: ADM IN PHONE #: [phone] Exam Date: 12/17/20211846 FAX #: [phone] Reason: Cardiac Surgery Pre Op EXAMS: CPT CODE: [id number] DUP VEIN RAJAN 72331 PROCEDURE INFORMATION: Exam: US Duplex Lower Extremity [...] Normal compressibility. Greater saphenous vein is patent. Rightgreater saphenous vein- upper thigh: 6.5 mm Right greater saphenous vein-mid thigh: 6.5 mm Right greater saphenous vein-lower thigh: 7.7 mm Right greater saphenous vein-upper le.3 mm Right greatersaphenous vein-mid le.7 mm Right greater saphenous vein- [...] by: Anoop Lilly M.D. CC: Jeffry Hsu MD;Abdiaziz Fuchs MD; Kena Macedo VESSEL MASTER; Colt Vail MD Technologist: Anu Denis Trnndb Date/Time: 12/17/2021 (2001) Cindy.WH3 Orig Print D/T: S: 12/17/2021 (2001) Probe: PAGE 1 Signed ReportCBC W/AUTO DIFF 2021-12-12 13:43:00* Test Item Value [...] c ode = MDIFF) NO BASIC METABOLIC [id number] 13:35:00* Test Item Value Reference Range Interpretation [...] = CA) 9.6 mg/dL 8.0-10.5 N PROTHROMBIN [id number] 13:09:00* Test Item Value Reference Range Interpretation [...] prevent recurrent infarct). - XR CHEST 2 [id number] 00:00:00 [facility] CHANCE[facility] : 1945 Sex: F FAX: Abdiaziz Christiansen MD [phone] [place]: St: PRE FAX: Colt Aguillon MD [phone] Name: KIAH GILES [facility] : 1945 Age/S: 76/F [address] [place] [address] Unit #: [id number] Loc: [place] [address] Phys: Colt Vail MD Acct: [id number] Dis Date: Status: PRE SDC PHONE #: [phone] Exam Date: 12/12/2021 1333 FAX #: [phone] Reason: PREOP EXAMS: CPT CODE: [id number] XR CHEST 2 A20462 PROCEDURE INFORMATION: Exam: XR Chest Exam date and time: 12/12/2021 1:33 PM Age: 76 years oldClinical indication: Other: Preop TECHNIQUE: Imaging protocol: Radiologic [...] minimal central venous congestion. Vasculature: There is ather osclerotic calcification of the aorta. Bones/joints: No gross acute findings. IMPRESSION: Cardiomegaly with minimal central venous congestion. Electronically Signed by Ender Garcia on12/12/2021 at 1531 Reported and signed by: Amina Garcia D.O. CC: Abdiaziz Fuchs MD; Colt Vail MD Technologist: RT Kimberly(R) Trnscrd Date/Time/By: 12/12/2021 (153) : By: [id number] Print D/T: S: 12/12/2021 (1531) PAGE 1 Signed Report
[2024-04-20 16:09] VITALS: BMI 40.3
[2024-04-20] MEDS: NA CHLORIDE 0.9% 1,000 ML IV SCH (17:18)
[2024-04-20 17:53] LABS: Absolute Basophils 0.1 K/uL (0-0.5); Absolute Eosinophils 0.1 K/uL (0-0.5); Absolute Lymphocytes (CBC) 0.9 K/uL (0.7-4.9); Absolute Monocytes 0.7 K/uL (0.1-1.3); Absolute Neutrophil 7.6 K/uL (1.8-8.0); Basophils % 0.6 % (0-1.3); Eosinophils % 1.2 % (0-4.4); Hematocrit 44.5 % (36.0-45.0); Hemoglobin 15.3 g/dL (12.0-15.0); Lymphocytes % 9.2 % (15.3-44.8); MCH 33.3 pg (27.0-35.0); MCHC 34.4 g/dL (32.0-36.0); MCV 96.9 fL (80-100); MPV 10.5 fL (7.6-11.3); Monocytes % 7.5 % (3.3-12.3); Neutrophils % 81.5 % (41.7-73.7); Nucleated Red Blood Cells % 0.1 % (0-0); Platelets 133 thou/uL (152-406); RBC Red Blood Cell Count 4.59 M/uL (3.86-4.86); Red Cell Distribution Width 14.4 % (12.1-15.2)
[2024-04-20 18:48] LABS: ALT/SGPT 29 U/L (13-56); AST/SGOT 25 U/L (15-37); Albumin 3.6 g/dL (3.4-5.0); Albumin/Globulin Ratio 0.8 (1.1-1.8); Alkaline Phosphatase 74 U/L (45-117); Anion Gap 6.7 mEq/L (5.0-15.0); BUN Blood Urea Nitrogen 31 mg/dL (7-18); Bicarbonate 40 mEq/L (21-32); Bilirubin Total 0.9 mg/dL (0.2-1.0); Globulin 4.7 g/dL (2.3-3.5); Glomerular Filtration Rate 47 ml/min (=/>90); Glucose Level 170 mg/dL (74-106); Magnesium 1.2 mg/dL (1.6-2.4); NT PRO-BNP 247 pg/mL (<450); Potassium 2.7 mEq/L (3.5-5.1); Protein, Total 8.3 g/dL (6.4-8.2); Sodium Level 134 mEq/L (136-145)
[2024-04-20] MEDS: POTASSIUM CL SA 10 MEQ TAB PO ONE (20:04)
[2024-04-20] MEDS: INSULIN REGULAR (HUMAN) 100 UNIT/ML SQ SCH (21:00)
[2024-04-20] MEDS: KCL 20 MEQ/100 mL IVPB 20 MEQ/100 ML BAG IV SCH (21:00)
--- NOTE | 2024-04-20 22:16 | HP ---
Date of Admission: 04/20/2024 Reason For Admission: High calcium. History Of Present Illness: An 78-year-old pleasant female patient, who had outpatient blood work do ne yesterday and this morning, I was notified by [facility] that the patient's calcium level was high at 13.3. With that, the patient was contacted by my office this morning and was asked to get repeat blood work done at our hospital, which was ordered to be done stat and repeat calcium also came back elevated. With that, the patient was asked to get admitted to hospital for further evaluation and ma nagement of this severe hypercalcemia problem. Upon review of multiple prior outpatient readings in last few years, the patient never had high calcium problem, so this is a new problem for her. She is having some nausea lately, but no vomiting. No diarrhea. Physical Examination: Vital Signs: Height 5 feet 4 inches, weight 235 pounds, temperature 97.6, pulse 70, respiratory rate 17, blood pressure 154/62, oxygen saturation 97% on room air. General: Awake, alert, oriented, not in distress. HEENT: Head atraumatic, normocephalic. Conjunctivae nonerythematous. Sclerae white. Mouth, no thr ush or edema noted. Ears/Nose, no mass, lesion, discharge noted. Neck: Supple. No JVD, lymph nodes, bruit, thyromegaly noted. Lungs: Bilateral good equal air entry. Clear to auscultation. No rhonchi. No rales. Heart: Normal heart sounds, no murmur or gallop. Abdomen: Soft, bowel sounds normal. No guarding, rigidity, tenderness, mass, hepatosplenomegaly, dis tention, or bruit noted. Extremities: No leg edema. No calf tenderness. Skin: No rash, ulcer, cellulitis. Lymphatics: No lymph node enlargement in neck, supraclavicular, infraclavicular region. Neuro: No focal neurological deficit. Chest: Unremarkable. External Genitalia: Deferred. Rectal: Deferred. Laboratory Data: WBC 9.3, hemoglobin 15.3, platelets 133. Sodium 134, potassium 2.7, chloride 90, b icarb 40, BUN 31, creatinine 1.18, glucose 170, calcium 13.4, magnesium 1.2. Liver function tests un remarkable. Impression: 1. Severe hypercalcemia. 2. Hypokalemia. 3. Chronic diastolic heart failure. 4. Hypertension. 5. Hyperlipidemia. 6. Coronary artery disease. 7. Hypomagnesemia. 8. Hypokalemia. 9. Chronic atrial fibrillation. 10. Type 2 diabetes mellitus. 11. Hypothyroidism. 12. Osteoarthritis, multiple sites. 13. Chronic respiratory failure with hypoxia. Plan: We will go ahead and admit the patient to hospital for further evaluation and management of th is problem. The patient is appropriate for inpatient and is expected to spend 2 midnights in [facility]. For her severe hypercalcemia, we will go ahead and start treatment with normal saline with IV flu id hydration and give 1 dose of pamidronate 90 mg IV infusion over 24 hours. We will repeat blood wo rk tomorrow. Workup will be done to evaluate this hypercalcemia, which will include vitamin D level, parathyroid hormone level, serum protein electrophoresis, serum immunoelectrophoresis, and urine for Bence-Denis protein. For hypokalemia, we will correct electrolyte replacement protocol and follow u p on blood work. For hypertension, continue her antihypertensive medication. Monitor blood pressure . If necessary, adjust medication. For hyperlipidemia, continue her statin therapy. No need for fu rther intervention. Diabetes will be managed with sliding scale insulin per order. For chronic shepherd tolic heart failure, she is on her diuretic therapy, which is furosemide and metolazone, we will cont inue that. Lovenox will be given for DVT prophylaxis. Plan of treatment was discussed with the michael ent and I will see her tomorrow for followup. Total time spent today 90 minutes including communication with outside lab, communication with the james philip and her daughter, performing today's evaluation and management, review of last office visit rec ord, review of last hospital admission record from August 16, 2023, and today's evaluation and management for hospital admission. JESSICA/MODL Voice ID: [id number]
[2024-04-20] MEDS: METOPROLOL TAR 25 MG TAB PO SCH (22:40)
[2024-04-20] MEDS: ATORVASTATIN 40 MG TAB PO SCH (22:40)
[2024-04-20] MEDS: FUROSEMIDE 40 MG TABLET PO SCH (22:40)
[2024-04-20] MEDS: POTASSIUM CL SA 10 MEQ TAB PO SCH (22:49)
[2024-04-21] MEDS: KCL 20 MEQ/100 mL IVPB 20 MEQ/100 ML BAG IV ONE (05:24)
[2024-04-21] MEDS: MIRABEGRON 25 MG PO SCH (09:00)
[2024-04-21] MEDS: LOSARTAN POTASSIUM 50 MG TABLET PO SCH (09:49)
[2024-04-21] MEDS: TAMSULOSIN 0.4 MG SR CAP PO SCH (09:50)
[2024-04-21] MEDS: ASPIRIN EC 81 MG TAB PO SCH (09:50)
[2024-04-21] MEDS: AMLODIPINE 5 MG TAB PO SCH (09:50)
[2024-04-21] MEDS ORDERED: PAMIDRONATE DISOD 30 MG VIAL IV ONE (18:00)
[2024-04-21] MEDS: PAMIDRONATE 90 MG in NA CHLORIDE 0.9% 500 ML IV SCH (18:03)
[2024-04-22] MEDS: METOLAZONE 2.5 MG TABLET PO SCH (08:00)
[2024-04-22 08:11] LABS: Anion Gap 5.4 mEq/L (5.0-15.0)
[2024-04-22 08:14] LABS: Potassium 2.4 mEq/L (3.5-5.1)
[2024-04-22] MEDS ORDERED: METOLAZONE 2.5 MG TABLET PO SCH (09:00)
[2024-04-22] MEDS: KCL 20 MEQ/100 mL IVPB 20 MEQ/100 ML BAG IV SCH (09:45)
[2024-04-22 10:38] VITALS: O2SAT 95
[2024-04-22] MEDS: POTASSIUM CL SA 10 MEQ TAB PO ONE ×2 (11:45→18:43)
--- NOTE | 2024-04-22 15:18 | PN ---
Date of Progress Note: 04/21/2024 Subjective: The patient was seen this morning for followup. She was lying in bed, not in distress. No new complaints, problems reported. Objective: Vital Signs: Reviewed. HEENT: Unremarkable. Lungs: Clear to auscultation. Heart: Sounds normal. Abdomen: Soft. Bowel sounds normal. No guarding, rigidity, tenderness, distention. Extremities: No leg edema. Labs: Sodium 136, potassium 3, chloride 94, bicarb 40, BUN 28, creatinine 1, glucose 215, calcium 12 .1. Impression: 1. Hypercalcemia. 2. Hypokalemia. 3. Hypertension. 4. Type 2 diabetes mellitus. 5. Coronary artery disease. Plan: We will go ahead and continue current medication. Continue current diuretic therapy. IV flui d. Pamidronate was not started yesterday upon admission which was ordered, so I did communicate with the nursing staff today and it will be started today. We will repeat blood work tomorrow. Replace electrolyte per protocol and continue current diabetes management. Possible discharge to go home michi [place]. JESSICA/MODL Voice ID: [id number] Report ID: [id number]
[2024-04-22 17:16] VITALS: BP 146/77
[2024-04-22 17:37] VITALS: TEMP 97.8
--- NOTE | 2024-04-24 06:03 | DS ---
Date of Discharge: 04/22/2024 Disposition: Discharged to go home. Physical Examination: HEENT: Unremarkable. Lungs: Clear to auscultation. Heart: Sounds normal. Abdomen: Soft. Bowel sounds normal. No guarding, rigidity, tenderness, distention. Extremities: No leg edema. Laboratory Data: Last potassium was 3.2. Earlier on the day of discharge, potassium was 2.4 with so dium 139, BUN 26, creatinine 0.86, calcium was 10.5. Her 25-hydroxy vitamin D level was 37.2. Vitam in B12 more than 2000. PTH level was 30.6. Discharge Medications And Instructions: 1. Continue all prior home medications except following changes: a. Stop metolazone. b. Do not take any Tums or any other uert-wya-vloyzvc calcium supplements. 2. Start omeprazole 40 mg, take 1 capsule by mouth daily 30 minutes before breakfast. 3. Follow up at my office on , April 27, 2024. Hospital Course: This is an 78-year-old pleasant female patient who was admitted to the hospital wit h severe hypercalcemia. The patient's outpatient blood work showed calcium level of 13.3, so she was contacted this morning to repeat another STAT blood work, which also revealed similar level of calci um number on outpatient lab work done at our hospital, so arrangements were made for her to be admitt ed to the hospital for treatment, evaluation, and management of this severe hypercalcemia. After she was admitted to the hospital, we started her on IV fluid and IV pamidronate 90 mg infusion over 24 h ours was ordered. We followed up on her serial blood work and her calcium level started to come down with IV fluid and IV pamidronate almost back to normal. The patient reported that lately she has be en using at least 4 Tums a day on a daily basis for acid reflux, heartburn, indigestion type of probl em and in last few days is having some nausea. While in the hospital, obviously we have discussed wi th her about importance of not taking any type of calcium supplement and started her on pantoprazole. With use of pantoprazole and correction of hypercalcemia, her nausea problem and acid reflux proble m have completely resolved. Her serum protein electrophoresis, immunoelectrophoresis, and urine for Bence Denis protein results are pending. We will follow up on that on outpatient basis. The patient was discharged to go home in improved condition with above-mentioned medications and instructions. Final Diagnoses: 1. Severe hypercalcemia. 2. Hypokalemia. 3. Chronic diastolic heart failure. 4. Hypertension. 5. Hyperlipidemia. 6. Coronary artery disease. 7. Chronic atrial fibrillation. 8. Type 2 diabetes mellitus. 9. Hypothyroidism. 10. Osteoarthritis, multiple sites. 11. Chronic respiratory failure with hypoxia. Total time spent today, 40 minutes. JESSICA/MODBecky Voice ID: [id number] Report ID: [id number]
[2024-04-25 12:13] LABS: Immunofixation Electrophoresis Normal pattern.
[2024-04-25 12:31] LABS: Abnormal Protein Band 1 REPORT; Albumin, (SPE) 3.9 g/dL (3.8-4.8); Alpha-1-Globulins 0.3 g/dL (0.2-0.3); Alpha-2-Globulins 0.9 g/dL (0.5-0.9); Beta 1 Globulin 0.6 g/dL (0.4-0.6); Gamma Globulins 1.6 g/dL (0.8-1.7); INTERPRETATION REPORT
[2024-04-27 11:58] LABS: Immunoglobulin A 751 mg/dL (70-320); Immunoglobulin G 1538 mg/dL (600-1540); Immunoglobulin M 135 mg/dL (50-300)
== END 2024-04-22 21:21 | disposition home or self-care (01) | DRG 641 ==
LOC: 4TH 14:52
PROVIDERS: ADMIT Internal Medicine; ATTEND Internal Medicine
DX: E83.52 Hypercalcemia (principal); I50.32 Chronic diastolic (congestive) heart failure; I48.20 Chronic atrial fibrillation, unspecified; J96.11 Chronic respiratory failure with hypoxia; I11.0 Hypertensive heart disease with heart failure; E87.6 Hypokalemia; E78.5 Hyperlipidemia, unspecified; E83.42 Hypomagnesemia; E03.9 Hypothyroidism, unspecified; M19.09 Primary osteoarthritis, other specified site; E11.9 Type 2 diabetes mellitus without complications; I25.10 Atherosclerotic heart disease of native coronary artery without angina pectoris
CPT/HCPCS: 36415; 80048; 80053; 82306; 82607; 82784; 82947; 83735; 83880; 83970; 84132; 84165; 85025; 86334; 86335; J2430; J3480; J7030; J7040